=== PATIENT | female | born 1970 | race Caucasian/White ===

== ENCOUNTER 2023-12-22 10:20 | Outpatient (OUT) | payer OTHER, SELFPAY ==
[2023-12-22 12:05] LABS: Basophils Absolute Auto 0.1 10^3/uL (0.0-0.1); Basophils Percent Auto 0.9 % (0.2-2.0); Eosinophils Absolute Auto 0.2 10^3/uL (0.0-0.7); Eosinophils Percent Auto 2.9 % (0.9-7.0); Hematocrit 41.5 % (36.0-48.0); Hemoglobin 13.1 g/dL (12.0-16.0); Immature Granulocytes Abs Auto 0.03 10^3/uL (0.00-0.03); Immature Granulocytes Pct Auto 0.5 % (0.0-0.5); Lymphocytes Percent Auto 35.1 % (20.5-60.0); Mean Corpuscular HGB Conc 31.6 g/dL (29.9-35.2); Mean Corpuscular Volume 91.8 fL (81.0-99.0); Mean Platelet Volume 11.4 fL (9.5-13.5); Monocytes Absolute Auto 0.3 10^3/uL (0.3-0.8); Monocytes Percent Auto 4.8 % (1.7-12.0); Neutrophils Absolute Auto 3.2 10^3/uL (1.4-6.5); Neutrophils Percent Auto 55.8 % (43.0-75.0); Platelet Count 298 10^3/uL (150-450); Red Blood Count 4.52 10^6/uL (4.20-5.40); Red Cell Distribution Width 14.9 % (11.0-15.0); White Blood Count 5.8 10^3/uL (4.0-11.0)
[2023-12-22 12:56] LABS: Estimated Average Glucose 346 mg/dL; Glycohemoglobin A1C 13.7 % (4.5-6.2)
[2023-12-22 13:31] LABS: Alanine Aminotransferase 27 U/L (14-59); Albumin Level 3.9 g/dL (3.4-5.0); Alkaline Phosphatase 104 U/L (46-116); Amylase 48 U/L (25-115); Anion Gap 18.2; Aspartate Amino Transferase 31 U/L (15-37); BUN Creatinine Ratio 12.2; Bilirubin Total 0.6 mg/dL (0.2-1.0); Calcium 9.4 mg/dL (8.5-10.1); Carbon Dioxide 23.5 mmol/L (21.0-32.0); Chloride 98 mmol/L (98-107); Chol HDL Ratio 7.4; Cholesterol 409 mg/dL (<=200); Estimated GFR (African America 28 (>=60); Estimated GFR (Non-African Ame 23 (>=60); Free T3 1.09 pg/mL (2.18-3.98); Globulin 4.1 g/dL; Glucose 235 mg/dL (74-106); HDL Cholesterol 55 mg/dL (40-60); Potassium 4.7 mmol/L (3.5-5.1); Sodium 135 mmol/L (136-145); Triglycerides 839 mg/dL (<=150)
[2023-12-22 13:51] LABS: LDL Cholesterol Direct 179 mg/dL
[2023-12-23 08:13] LABS: CA 19-9 15 U/mL (0-35)
[2023-12-24 12:07] LABS: Insulin 78.6 uIU/mL (2.6-24.9)
== END 2023-12-22 10:21 | disposition home or self-care (01) ==
LOC: LAB 10:23
PROVIDERS: PCP Family Medicine; Visit Provider Family Medicine
DX: R10.0 Acute abdomen (principal); E03.9 Hypothyroidism, unspecified; F32.9 Major depressive disorder, single episode, unspecified; E78.00 Pure hypercholesterolemia, unspecified; R73.09 Other abnormal glucose; Z12.12 Encounter for screening for malignant neoplasm of rectum; D64.9 Anemia, unspecified; E55.9 Vitamin D deficiency, unspecified; I11.0 Hypertensive heart disease with heart failure
CPT/HCPCS: 36415; 80053; 80061; 82150; 82306; 83036; 83525; 83540; 83690; 83721; 83880; 84436; 84443; 84481; 85025; 86301

== ENCOUNTER 2023-12-28 08:11 | Outpatient (OUT) | payer OTHER, SELFPAY ==
--- OUTSIDE RECORDS SUMMARY | 2023-12-28 08:16 | XMS_ITS | CCD ---
Author Name Unknown Address [address] [place] [address] Organization [facility] Care Team Providers Care Jig Operator Name Role Phone GARRY RAMOS Referring Unavailable GARRY RAMOS Primary Care Unavailable SHOLA VILLAFUERTE Attending Unavailable SHOLA VILLAFUERTE Admitting Unavailable Garry Ramos MD Primary Care Provider [phone] CHRISTI CHANCE Referring Unavailable GARRY RAMOS Primary Care Unavailable GARRY RAMOS Primary Care Unavailable ROBERT GARCIA Consulting Unavailable PALOMA ARCEO Admitting Unavailable PALOMA ARCEO Attending Unavailable CHINO DEMPSEY Consulting Unavailable SOLITARIO, LIVIA Admitting Unavailable SOLITARIO, LIVIA Attending Unavailable GARRY RAMOS Primary Care Unavailable URBAN NORIEGA Consulting Unavailable SHAHID GALINDO Consulting Unavailable Bakhous, Aziz Unavailable NUBIA LOZANO Attending Unavailable EKWENNA, OBI Attending Unavailable NUBIA LOZANO Referring Unavailable NUBIA LOZANO Referring Unavailable EKWENNA, OBI Referring Unavailable LUTHER TESFAYE Attending Unavailable NUBIA LOZANO Attending Unavailable EKWENNA, OBI Attending Unavailable EKWENNA, OBI Admitting Unavailable EKWENNA, OBI Attending Unavailable RICHARD Mullins, DR CASTAÑEDA Attending Unavailable HOY ., DR CASTAÑEDA Admitting Unavailable HOY ., DR CASTAÑEDA Primary Care Unavailable NAGIY ., DR CASTAÑEDA Admitting Unavailable HOY ., DR CASTAÑEDA Primary Care Unavailable HOThai ., DR CASTAÑEDA Attending Unavailable HOY ., DR CASTAÑEDA Attending Unavailable HOY ., DR CASTAÑEDA Admitting Unavailable HOThai ., DR CASTAÑEDA Primary Care Unavailable RICHARD Mullins, DR CASTAÑEDA Consulting Unavailable BAKHOUS, AZIZ Admitting Unavailable BAKHOUS, AZIZ Consulting Unavailable HOY ., DR CASTAÑEDA Primary Care Unavailable BAKHOUS, AZIZ Attending Unavailable HOY ., DR CASTAÑEDA Attending Unavailable HOY ., DR CASTAÑEDA Admitting Unavailable HOY ., DR CASTAÑEDA Primary Care Unavailable HOY ., DR CASTAÑEDA Consulting Unavailable HOY ., DR CASTAÑEDA Primary Care Unavailable HOY ., DR CASTAÑEDA Consulting Unavailable HOY ., DR CASTAÑEDA Attending Unavailable HOY ., DR CASTAÑEDA Admitting Unavailable HOY ., DR CASTAÑEDA Attending Unavailable HOY ., DR CASTAÑEDA Admitting Unavailable HOY ., DR CASTAÑEDA Consulting Unavailable HOY ., DR CASTAÑEDA Primary Care Unavailable BAKHOUS, AZIZ Admitting Unavailable BAKHOUS, AZIZ Attending Unavailable HOY ., DR CASTAÑEDA Primary Care Unavailable HOY ., DR CASTAÑEDA Attending Unavailable HOY ., DR CASTAÑEDA Admitting Unavailable HOY ., DR CASTAÑEDA Primary Care Unavailable HOY ., DR CASTAÑEDA Consulting Unavailable BAKHOUS, AZIZ Admitting Unavailable BAKHOUS, AZIZ Consulting Unavailable BAKHOUS, AZIZ Attending Unavailable HOY ., DR CASTAÑEDA Primary Care Unavailable HOY ., DR CASTAÑEDA Attending Unavailable HOY ., DR CASTAÑEDA Admitting Unavailable HOY ., DR CASTAÑEDA Primary Care Unavailable DAWSON, DR AIME Lewis Consulting Unavailanna ALCANTAR, DR MARAH Estrada Consulting Unavailable Unavailable Unavailable Unavailable Allergies Allergy Classification Reported Allergen(s) Allergy Type Date of Onset Reaction(s) Facility Opioid Agonists (1 source) Morphine; Translations: [MORPHINE] Drug Allergy 9 [facility] Penicillins (antibiotic) (1 source) Penicillin; Translations: [PENICILLIN] Drug Allergy 9 [facility] (3 sources) HYDROmorphone; Translations: [HYDROMORPHONE] Drug Allergy 0 [facility] (4 sources) Morphine; Translations: [MORPHINE] Drug Allergy 2 [facility] Work Phone: (5 sources) Penicillins; Translations: [PENICILLINS] Propensity to adverse reactions to drug 9 [facility] (2 sources) Ciprofloxacin Drug Allergy 6 [facility] [employer] (1 source) penicillAMINE Drug Allergy [facility] [place] [employer] Other (2 sources) Ciprofloxacin Drug Allergy 6 [facility] (1 source) HYDROmorphone Drug Allergy [facility] (2 sources) Morphine Drug Allergy 9 [facility] Medications Current Medications Medication Drug Class(es) Dates Sig (Normalized) Sig (Original) Acetaminophen (2 sources) Start: 07-25-2022 acetaminophen (TYLENOL) tablet 650 mg Start: 07-18-2022 acetaminophen (TYLENOL) tablet 650 mg acetaminophen 325 mg / oxyCODONE hydrochloride 5 mg oral tablet (3 sources) Opioid Agonist Start: 07-26-2022 End: 07-29-2022 take 1 tablet by mouth every eight hours as needed for pain oxyCODONE-acetaminophen (PERCOCET) 5-325 MG per tablet Indications: Nephrostomy complication (HCC) Take 1 tablet by mouth every 8 hours as needed for Pain for up to 3 days. 9 tablet 0 07/26/2022 07/29/2022 Active Start: 07-26-2022 oxyCODONE-acet aminophen (PERCOCET) 5-325 MG per tablet 1 tablet Start: 07-18-2022 End: 07-20-2022 oxyCODONE-acetaminophen (PER COCET) 5-325 MG per tablet 2 tablet 1000 ml glucose 100 mg/ml injection (6 sources) Start: 07-26-2022 take 1 mL intravenously every hour IntraVENous, at 100 mL/hr, CONTINUOUS PRN, if blood glucose remains LESS THAN 70 mg/dL after 2 dextrose 10% intravenous boluses or administration of glucagon, Starting on Mon07/26/22 at 1229 If blood glucose fails to stabilize after 2 dextrose 10% intravenous boluses or glucagon administration, start dextrose 10% infusion at 100 mL/hour and repeat blood glucose at 30 and 60 minutes. If blood glucose is GREATER THAN 70 mg/dL after 60 minutes, discontinue dextrose 10% infusion. Start: 07-26-2022 dextrose bolus 10% 125 mL Start: 07-26-2022 16 g (4 tablet ), Oral, PRN, Starting on Mon07/26/22 at 1229, Until Discontinued, Low blood sugar If blood glucose is LESS THAN 70 mg/dL and patient is alert and tolerating oral. Give 4 tablets (16g) Repeat blood glucose in 15 minutes. If blood glucose is LESS THAN 70 mg/dL, repeat treatment and recheck blood glucose in 15 minutes x 2. If blood glucose remains LESS THAN 70 mg/dL, notify provider. Start: 07-18-2022 take 1 mL intravenou sly every hour IntraVENous, at 100 mL/hr, CONTINUOUS PRN, if blood glucose remains LESS THAN 70 mg/dL after 2 dextrose 10% intravenous boluses or administration of glucagon, Starting on Mon07/18/22 at 1814 If blood glucose fails to stabilize after 2 dextrose 10% intravenous boluses or glucagon administration, start dextrose 10% infusion at 100 mL/hour and repeat blood glucose at 30 and 60 minutes. If blood glucose is GREATER THAN 70 mg/dL after 60 minutes, discontinue dextrose 10% infusion. Start: 07-18-2022 dextrose bolus 10% 125 mL Start: 07-18-2022 16 g (4 tablet ), Oral, PRN, Starting on Mon07/18/22 at 1814, Until Discontinued, Low blood sugar If blood glucose is LESS THAN 70 mg/dL and patient is alert and tolerating oral. Give 4 tablets (16g) Repeat blood glucose in 15 minutes. If blood glucose is LESS THAN 70 mg/dL, repeat treatment and recheck blood glucose in 15 minutes x 2. If blood glucose remains LESS THAN 70 mg/dL, notify provider. hydroCHLOROthiazide 25 mg oral tablet (2 sources) Thiazide Diuretic End: 07-22-2022 take 1 tablet by mouth every twenty-four hours hydroCHLOROthiazide 25 MG 1 tablet in the morning Orally Once a day Active ibuprofen 800 mg oral tablet (1 source) Nonsteroidal Anti-inflammato ry Drug Start: 07-26-2022 End: 08-05-2022 take 1 tablet by mouth every eight hours as needed for pain ibuprofen (ADVIL;MOTRIN) 800 MG tablet Take 1 tablet by mouth every 8 hours as needed for Pain 30 tablet 0 07/26/2022 08/05/2022 Active insulin glargine 100 unt/ml injectable solution (4 sources) Insulin Analog Start: 07-26-2022 insulin glargine (LANTUS) injection vial 73 Units Start: 07-20-2022 insulin glargi ne (LANTUS) injection vial 50 Units Start: 07-20-2022 End: 07-20-2022 insulin glargine (LANTUS) in jection vial 35 Units Start: 07-19-2022 End: 07-20-2022 insulin glargine (LANTUS) in jection vial 25 Units insulin isophane, human 70 u nt/ml / insulin, regular, human 30 unt/ml injectable suspension (3 sources) Insulin HumuLIN 70/30 (7 0-30) 100 UNIT/ML as directed Subcutaneous 80 units every morning and 50 units at night Active insulin 70-30 (H UMULIN;NOVOLIN) (70-30) 100 UNIT per ML injection vial Inject into the skin 2 times daily 80 units AM 50 Units PM 0 Active insulin lispro 100 unt/ml injectable solution (6 sources) Insulin Analog Start: 07-26-2022 insulin lispro (HUMALOG) injection vial 13 Units Start: 07-20-2022 End: 07-20-2022 insulin lispro (HUMALOG) inj ection vial 10 Units Start: 07-20-2022 insulin lispro (HUMALOG) injection vial 5 Units Start: 07-20-2022 insulin lispro (HUMALOG) injection vial 0-4 Units Start: 07-18-2022 End: 07-20-2022 0-8 Units, SubCUTAneous, 3 T IMES DAILY WITH MEALS, First dose on 07/18/22 at 1815, Until Discontinued Medium Dose Corrective Algorithm Glucose: Dose: 70-199 No Insulin 200-249 2 Units 250-299 4 Units 300-349 6 Units Over 349 8 Units and notify physician 1 ml ketorolac tromethamine 30 mg/ml cartridge (2 sources) Nonsteroidal Anti-inflammatory Drug, Cyclooxygenase Inhibitor Start: 07-25-2022 End: 07-27-2022 ketorolac (TORADOL) injection 30 mg ondansetron (ZOFRAN-ODT) disintegrating tablet 4 mg (1 source) Start: 07-18-2022 ondansetron (ZOFRAN-ODT) disintegrating tablet 4 mg oxyCODONE hydrochloride 5 mg oral tablet (1 source) Opioid Agonist Start: 07-20-2022 oxyCODONE (ROXICODONE) immediate release tablet 5 mg Potassium Chloride (1 source) Start: 07-25-2022 potassium chloride (KLOR-CON M) extended release tablet 40 mEq 1000 ml sodium chloride 9 mg/ml injection (10 sources) Start: 07-25-2022 take 25 mL intravenously every hour as needed 25 mL, IntraVENous, at 100 mL/hr, PRN, If patient receiving piggyback infusions without ordered maintenance IV fluids or with frequent/long duration piggyback infusions, Starting on Mon07/25/22 at 2002 Administer at the same rate as the piggyback being infused. Start: 07-25-2022 take 1 dose intraven ously twice daily 5-40 mL, IntraVENous, EVERY 12 HOURS SCHEDULED (2 times per day), First dose on Mon07/25/22 at 2100, Until Discontinued For Line Patency: Peripheral IV = 5 mL; Midline or Central Line = 10 mL/lumen. If following IV push medication, administer flush at same rate as the IV push. Flush volume is determined by type of infusion therapy being given. For non-viscous solutions use: Peripheral IV = 5 mL Midline or Central Line = 10 mL/lumen For viscous solutions (i.e. blood components, parenteral nutrition, contrast media, or after obtaining blood sample) use: Peripheral IV = 10 mL Midline or Central Line = 20 mL/lumen Start: 07-25-2022 take 5-40 mL intrave nously once as needed 5-40 mL, IntraVENous, PRN, Starting on Mon07/25/22 at 2002, Until Discontinued, Line Care, After every IV line use For Line Patency: Peripheral IV = 5 mL; Midline or Central Line = 10 mL/lumen. If following IV push medication, administer flush at same rate as the IV push. Flush volume is determined by type of infusion therapy being given. For non-viscous solutions use: Peripheral IV = 5 mL Midline or Central Line = 10 mL/lumen For viscous solutions (i.e. blood components, parenteral nutrition, contrast media, or after obtaining blood sample) use: Peripheral IV = 10 mL Midline or Central Line = 20 mL/lumen Start: 07-21-2022 sodium chlorid e flush 0.9 % injection 5-40 mL Start: 07-20-2022 End: 07-20-2022 0.9 % sodium chloride bolus Start: 07-18-2022 End: 07-20-2022 0.9 % sodium chloride infusi on Start: 07-18-2022 End: 07-21-2022 IntraVENous, at 5-250 mL/hr, PRN, if patient receiving piggyback infusions and maintenance fluids are not ordered OR KVO fluids to protect IV site / prevent frequent line interruptions/ long duration, Starting on Mon07/18/22 at 1814 For piggyback infusion, administer at same rate as piggyback for a total of 25 mL. Enter 25 mL into dose field and piggyback rate into rate field of order. If piggyback is infusing at a rate less than 100 mL/hr, enter 25 mL into dose field and 100 mL/hr into rate field of order. For KVO fluids, enter rate of 20 mL/hr or less into rate field of order. Start: 07-18-2022 End: 07-21-2022 take 5-40 mL intravenously once as needed 5-40 mL, IntraVENous, PRN, Starting on Mon07/18/22 at 1814, Until Mon07/21/22 at 1559, Line Care, After every IV line use For Line Patency: Peripheral IV = 5 mL; Midline or Central Line = 10 mL/lumen. If following IV push medication, administer flush at same rate as the IV push. Flush volume is determined by type of infusion therapy being given. For non-viscous solutions use: Peripheral IV = 5 mL Midline or Central Line = 10 mL/lumen For viscous solutions (i.e. blood components, parenteral nutrition, contrast media, or after obtaining blood sample) use: Peripheral IV = 10 mL Midline or Central Line = 20 mL/lumen tigecycline (TYGACIL) 50 mg in sodium chloride 0.9 % 100 mL IVPB (1 source) Start: 07-21-2022 tigecycline (T YGACIL) 50 mg in sodium chloride 0.9 % 100 mL IVPB Completed/Discontinued Medications Medication Drug Class(es) Dates Sig (Normalized) Sig (Original) aspirin 81 mg delayed release oral tablet (5 sources) Platelet Aggregation Inhibitor, Nonsteroidal Anti-inflammatory Drug Start: 07-22-2022 End: 08-21-2022 take 81 mg by mouth once daily 81 mg, Oral, DAILY, First dose on Mon07/26/22 at 0900, Until Discontinued Do not crush or break. Aspirin 81 MG 1 daily Active atorvastatin 80 mg oral tablet (5 sources) HMG-CoA Reductase Inhibitor Start: 07-19-2022 take 80 mg by mouth once daily 80 mg, Oral, DAILY, First dose on Mon07/26/22 at 0900, Until Discontinued ciprofloxacin 500 mg oral tablet (5 sources) Quinolone Antimicrobial Start: 07-22-2022 End: 08-05-2022 500 mg, Oral, 2 TIMES DAILY, First dose on Mon07/25/22 at 2300, Until Discontinued Antimicrobial Indications: Urinary Tract Infection UTI duration of therapy: Other Do not take with dairy products or calcium-fortified juices. Tube feeding (TF) interaction, obtain physician order to manage. Recommend holding TF for 1 hr before and 1 hr after dose. Due to decreased absorption do not give by J tube. Start: 07-18-2022 End: 07-20-2022 ciprofloxacin (CIPRO) IVPB 4 00 mg DULoxetine 30 mg delayed release oral capsule (6 sources) Serotonin and Norepinephrine Reuptake Inhibitor Start: 07-26-2022 take 1 capsule by mouth once daily 60 mg, Oral, DAILY, First dose on Mon07/26/22 at 0900, Until Discontinued Do not crush or break. May add contents of capsule to apple juice or apple sauce, but not chocolate. Start: 07-22-2022 End: 08-21-2022 take 1 capsule by mouth once daily DULoxetine (CYMBALTA) 60 MG extended release capsule Take 1 capsule by mouth daily 30 capsule 1 07/22/2022 08/21/2022 Active Start: 07-20-2022 DULoxetine (CY MBALTA) extended release capsule 60 mg empagliflozin (1 source) Sodium-Glucose Cotransporter 2 Inhibitor JARDIANCE Not- Taking 2 ml fentaNYL 0.05 mg/ml injection (8 sources) Opioid Agonist Start: 07-26-2022 End: 07-26-2022 fentaNYL (SUBLIMAZE) injection Start: 07-19-2022 End: 07-19-2022 fentaNYL (SUBLIMAZE) injecti on Start: 07-18-2022 End: 07-20-2022 fentaNYL (SUBLIMAZE) injecti on 50 mcg furosemide 20 mg oral tablet (5 sources) Loop Diuretic Start: 07-26-2022 take 20 mg by mouth once daily 20 mg, Oral, DAILY, First dose on Mon07/26/22 at 0900, Until Discontinued Start: 07-23-2022 End: 07-22-2022 take 1 tablet by mouth once daily furosemide (LASIX) 20 MG tablet Take 1 tablet by mouth daily 60 tablet 3 07/23/2022 Active Start: 07-23-2022 take 1 tablet by ivana once daily furosemide (LASIX) 20 MG tablet Take 1 tablet by mouth daily 60 tablet 3 07/23/2022 Active Start: 07-23-2022 furosemide (LA SIX) tablet 20 mg gabapentin 600 mg oral tablet (6 sources) Anti-epileptic Agent Start: 07-22-2022 End: 08-21-2022 take 600 mg by mouth three times daily 600 mg, Oral, 3 TIMES DAILY, First dose on Mon07/25/22 at 2300, Until Discontinued Start: 07-18-2022 gabapentin (NE URONTIN) capsule 600 mg Start: 03-21-2020 take 2 tablets by mo [facility] every twelve hours Gabapentin 600 MG 2 capsules Orally twice a day for 5 days March, Active glucagon (rdna) 1 mg injection (2 sources) Antihypoglycemic Agent Start: 07-26-2022 inject 1 mg by subcutaneous injection every hour as needed 1 mg, SubCUTAneous, PRN, Starting on Mon07/26/22 at 1229, Until Discontinued, Low blood sugar, Blood glucose LESS THAN 70 mg/dL and patient NOT ALERT or NPO and does not have IV access. After administration, attempt intravenous access and start dextrose 10% at 100 mL/hr. Repeat blood glucose in 15 minutes x 2 and notify provider. Start: 07-18-2022 inject 1 mg by subcu taneous injection every hour as needed 1 mg, SubCUTAneous, PRN, Starting on Mon07/18/22 at 1814, Until Discontinued, Low blood sugar, Blood glucose LESS THAN 70 mg/dL and patient NOT ALERT or NPO and does not have IV access. After administration, attempt intravenous access and start dextrose 10% at 100 mL/hr. Repeat blood glucose in 15 minutes x 2 and notify provider. 1 ml heparin sodium, porcine 5000 unt/ml prefilled syringe (1 source) Unfractionated Heparin, Anti-coagulant Start: 07-18-2022 inject 1 dose by subcutaneous injection three times daily 5,000 Units, SubCUTAneous, EVERY 8 HOURS SCHEDULED (3 times per day), First dose on Mon07/18/22 at 2200, Until Discontinued Hold until okay with urology to give heparin hydrALAZINE hydrochloride 50 mg oral tablet (5 sources) Arteriolar Vasodilator Start: 07-25-2022 take 1 dose by mouth three times daily 25 mg, Oral, EVERY 8 HOURS SCHEDULED (3 times per day), First dose on Mon07/25/22 at 2300, Until Discontinued Start: 07-22-2022 End: 08-21-2022 take 1 tablet by mouth every eight hours hydrALAZINE (APRESOLINE) 25 MG tablet Take 1 tablet by mouth every 8 hours 90 tablet 2 07/22/2022 08/21/2022 Active iopamidol (ISOVUE-370) 76 % injection 50 mL (2 sources) Start: 07-26-2022 End: 07-26-2022 iopamidol (ISOVUE-370) 76 % injection 50 mL Start: 07-19-2022 End: 07-19-2022 iopamidol (ISOVUE-370) 76 % injection 50 mL labetalol hydrochloride 5 mg/ml injectable solution (1 source) beta-Adrenergic Brandon Start: 07-20-2022 End: 07-20-2022 labetalol (NORMODYNE;TRANDATE) injection 10 mg levothyroxine sodium 0.1 mg oral tablet (6 sources) l-Thyroxine Start: 07-26-2022 take 200 ug by mouth once daily 200 mcg, Oral, DAILY, First dose on Mon07/26/22 at 0700, Until Discontinued Tube feeding (TF) interaction, obtain physician order to manage, recommend holding TF for 30 minutes before and after dose. Start: 07-22-2022 End: 08-21-2022 take 1 tablet by mouth once daily levothyroxine (SYNTHROID) 200 MCG tablet Take 1 tablet by mouth Daily 30 tablet 0 07/22/2022 08/21/2022 Active Start: 07-19-2022 take 200 ug by mouth once lauren y 200 mcg, Oral, DAILY, First dose on Mon07/19/22 at 0700, Until Discontinued Tube feeding (TF) interaction, obtain physician order to manage, recommend holding TF for 30 minutes before and after dose. take 1 tablet by ivana th once daily in the morning Synthroid 200 MCG 1 tablet in the morning on an empty stomach Orally Once a day Active losartan potassium 50 mg oral tablet (4 sources) Angiotensin 2 Receptor Brandon Start: 07-26-2022 take 100 mg by mouth once daily 100 mg, Oral, DAILY, First dose on Mon07/26/22 at 0900, Until Discontinued take 1 tablet by ivana th every twenty-four hours Losartan Potassium 100 MG 1 tablet Orally Once a day Active magnesium oxide 400 mg oral tablet (4 sources) Start: 07-25-2022 take 400 mg by mouth twice daily as needed 400 mg, Oral, 2 TIMES DAILY PRN, Starting on Mon07/25/22 at 2253, Until Discontinued, for low Mag take 1 tablet by ivana th every twenty-four hours Magnesium Oxide 400 MG 1 tablet as needed Orally Once a day Active metFORMIN hydrochloride 500 mg oral tablet (4 sources) Biguanide Start: 07-26-2022 take 500 mg by mouth twice daily at mealtime 500 mg, Oral, 2 TIMES DAILY WITH MEALS, First dose on Mon07/26/22 at 1700, Until Discontinued methylPREDNISolone (1 source) Corticosteroid Start: 07-16-2016 Depo-Medrol 40 mg Jul, 60 mg 2 ml midazolam 1 mg/ml injection (1 source) Benzodiazepine Start: 07-19-2022 End: 07-19-2022 midazolam PF (VERSED) injection 2 ml ondansetron 2 mg/ml injection (1 source) Serotonin-3 Receptor Antagonist Start: 07-25-2022 4 mg, IntraVENous, EVERY 4 HOURS PRN, Starting on Mon07/25/22 at 2002, Until Discontinued, Nausea, Vomiting polyethylene glycol 3350 21226 mg powder for oral solution (2 sources) Osmotic Laxative Start: 07-25-2022 17 g, Oral, DAILY PRN, Starting on Mon07/25/22 at 2003, Until Discontinued, Constipation First line therapy for constipation Start: 07-18-2022 17 g, Oral, DA OSMAN PRN, Starting on Mon07/18/22 at 1814, Until Discontinued, Constipation First line therapy for constipation rosuvastatin (1 source) HMG-CoA Reductase Inhibitor Crestor Not-Taking sodium bicarbonate 75 mEq in sodium chloride 0.45 % 1,000 mL infusion (1 source) Start: 07-20-2022 End: 07-22-2022 sodium bicarbonate 75 mEq in sodium chloride 0.45 % 1,000 mL infusion tobramycin (NEBCIN) 200 mg in dextrose 5 % 100 mL IVPB (1 source) Start: 07-20-2022 End: 07-20-2022 tobramycin (NEBCIN) 200 mg in dextrose 5 % 100 mL IVPB Problems Active Problems Problem Classification Problem Date Documented Date Episodic/Chronic Acute and unspecified renal failure (4 sources) Acute injury of kidney; Translations: [Acute kidney failure, unspecified] Onset: 2 Episodic Allergic reactions (3 sources) Allergy to penicillin; Translations: [Allergy status to penicillin] Onset: 2 Episodic Calculus of urinary tract (19 sources) Kidney stone; Translations: [Calculus of kidney] Onset: 2 Episodic Chronic kidney disease (6 sources) Chronic kidney disease stage 4; Translations: [Chronic kidney disease, stage 4 (severe)] Onset: 3 Chronic Complication of device; implant or graft (2 sources) Displacement of nephrostomy tube; Translations: [Displacement of nephrostomy catheter, initial encounter] Onset: 2 Episodic Complications of surgical procedures or medical care (2 sources) Complication of external stoma of urinary tract; Translations: [Other complication of incontinent external stoma of urinary tract] Onset: 2 Episodic Congestive heart failure; nonhypertensive (1 source) Unspecified diastolic (congestive) heart failure; Translations: [UNSPECIFIED DIASTOLIC HEART FAILURE] Onset: 2 Chronic Coronary atherosclerosis and other heart disease (1 source) Atherosclerotic heart disease of [place] coronary artery without angina pectoris; Translations: [ASHD UPPER [place] CA W/O ANGINA PECTORIS] Onset: 2 Chronic Deficiency and other anemia (2 sources) Anemia, unspecified; Translations: [ANEMIA UNSPECIFIED] Onset: 3 Episodic Diabetes mellitus with complications (3 sources) Type 2 diabetes mellitus in obese; Translations: [Type 2 diabetes mellitus with other specified complication] Onset: 3 Chronic Diabetes mellitus without complication (4 sources) Insulin treated type 2 diabetes mellitus; Translations: [Type 2 diabetes mellitus without complications] Onset: 2 Chronic Diseases of white blood cells (3 sources) Leukocytosis; Translations: [Elevated white blood cell count, unspecified] Onset: 2 Chronic Disorders of lipid metabolism (1 source) Pure hypercholesterolemia, unspecified; Translations: [PURE HYPERCHOLESTEROLEMIA UNSPEC] Onset: 2 Chronic Essential hypertension (5 sources) Hypertensive disorder; Translations: [Essential (primary) hypertension] Onset: 2 Chronic Hypertension with complications and secondary hypertension (3 sources) Hypertensive renal disease; Translations: [Hypertensive chronic kidney disease with stage 1 through stage 4 chronic kidney disease, or unspecified chronic kidney disease] Onset: 2 Chronic Mood disorders (4 sources) Depressive disorder; Translations: [Depression] Onset: 2 Chronic Nephritis; nephrosis; renal sclerosis (7 sources) Atrophy of left kidney; Translations: [Atrophy of kidney (terminal)] Onset: 2 Chronic Nutritional deficiencies (1 source) Vitamin D deficiency, unspecified; Translations: [VITAMIN D DEFICIENCY UNSPECIFIED] Onset: 2 Chronic Other aftercare (3 sources) Patient encounter status; Translations: [shelter (current) use of non-steroidal anti-inflammatories (NSAID)] Onset: 2 Episodic Other circulatory disease (3 sources) H/O: heart disorder; Translations: [Personal history of other diseases of the circulatory system] Onset: 2 Episodic Other nervous system disorders (1 source) Neuropathy; Translations: [Polyneuropathy, unspecified] Chronic Other nutritional; endocrine; and metabolic disorders (1 source) Obesity; Translations: [Obesity, unspecified] Chronic Other nutritional; endocrine; and metabolic disorders (2 sources) Obesity, unspecified; Translations: [OBESITY UNSPECIFIED] Onset: 3 Chronic Other nutritional; endocrine; and metabolic disorders (1 source) Morbid (severe) obesity due to excess calories; Translations: [MORBID SEVERE OBES D/T EXCESS JENARO] Onset: 2 Chronic Other nutritional; endocrine; and metabolic disorders (1 source) Body mass index (BMI) 40.0-44.9, adult; Translations: [BODY MASS INDEX BMI 40.0-44.9 ADULT] Onset: 2 Chronic Other upper respiratory infections (1 source) Sinusitis; Translations: [Chronic infection of sinus NOS] Chronic Residual codes; unclassified (1 source) Absent kidney; Translations: [Acquired absence of kidney] Episodic Residual codes; unclassified (4 sources) Acquired absence of kidney; Translations: [Acquired absence of kidney] Onset: 3 Episodic Septicemia (except in labor) (3 sources) Acute kidney injury due to sepsis; Translations: [Sepsis, unspecified organism] Onset: 2 Episodic Thyroid disorders (4 sources) Hypothyroidism; Translations: [Hypothyroidism, unspecified] Onset: 2 Chronic Unclassified (2 sources) Nephrolithiasis; Translations: [Nephrolithiasis] Onset: 2 Unclassified (1 source) CONTACT W/AND (SUSP) EXPOS COVID-19; Translations: [CONTACT W/AND (SUSP) EXPOS COVID-19] Onset: 2 Past or Other Problems Problem Classification Problem Date Documented Date Episodic/Chronic Abdominal pain (8 sources) Left flank pain; Translations: [Unspecified abdominal pain] Onset: 07-18-2022 Episodic Diabetes mellitus without complication (1 source) Other abnormal glucose; Translations: [OTHER ABNORMAL GLUCOSE] Onset: 11-30-2022 Episodic Fluid and electrolyte disorders (10 sources) Metabolic acidosis; Translations: [Acidosis] Onset: 07-20-2022 Episodic Malaise and fatigue (5 sources) Other fatigue; Translations: [OTHER FATIGUE] Onset: 04-15-2022 Episodic Other aftercare (1 source) 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; Translations: [AUTOMATION ARCHITECT CURRENT USE OF ASPIRIN] Onset: 07-20-2022 Episodic Other aftercare (1 source) Other intermediate manager (current) drug therapy; Translations: [OTH LONGTERM CURRENT DRUG THERAPY] Onset: 07-20-2022 Episodic Other aftercare (1 source) shelter (current) use of oral hypoglycemic drugs; Translations: [LONGTERM USE ORAL HYPOGLYCEMIC DX] Onset: 07-20-2022 Episodic Other diseases of kidney and ureters (2 sources) Hydronephrosis with ureteral stricture, not elsewhere classified; Translations: [Hydronephrosis with ureteral stricture, not elsewhere classified] Onset: 08-23-2022 Episodic Other screening for suspected conditions (not mental disorders or infectious disease) (1 source) Encounter for screening for malignant neoplasm of rectum; Translations: [ENC SCREEN MALIG NEOPLASM RECTUM] Onset: 04-19-2022 Episodic Urinary tract infections (8 sources) Acute pyelonephritis; Translations: [Acute pyelonephritis] Onset: 07-19-2022 Episodic Results Test Name Value Interpretation Reference Range Facility PTH INTACTon 03-11-2023 PTH, Intact 31 pg/mL Normal 15-65 [facility] Comment on above: Performed By: #### U MICRO, ERUR #### [facility] [address] [address] [address] Delmer Rea FERRITINon 03-10-2023 Ferritin [Mass/Vol] 35.0 ng/mL Normal 8.0-252.0 [facility] Comment on above: Performed By: #### L IPA, DLDL, CON, LIPID, T7, CMP, TSH #### [facility] [address] [address] [address] Delmer Rea HEMOGRAM AND PLATELon 2022 Hematocrit (Bld) [Volume fraction] 35.5 % Critically low 36.0-48.0 [facility] Comment on above: Performed By: #### L IPA, DLDL, CON, LIPID, T7, CMP, TSH #### [facility] [address] [place] [address] Dr. Delmer Rea Hemoglobin (Bld) [Mass/Vol] 11.6 g/dL Critically low 12.0-16.0 [facility] Comment on above: Performed By: #### L IPA, DLDL, CON, LIPID, T7, CMP, TSH #### [facility] [address] [address] [address] Delmer Rea MCH (RBC) [Entitic mass] 27.3 pg Normal 26.7-34.0 [facility] Comment on above: Performed By: #### L IPA, DLDL, CON, LIPID, T7, CMP, TSH #### [facility] [address] [place] [address] Dr. Delmer Rea MCHC (RBC) [Mass/Vol] 32.7 g/dL Normal 29.9-35.2 [facility] Comment on above: Performed By: #### L IPA, DLDL, CON, LIPID, T7, CMP, TSH #### [facility] [address] [place] [address] Dr. Delmer Rea MCV (RBC) [Entitic vol] 83.5 fL Normal 81.0-99.0 [facility] Comment on above: Performed By: #### L IPA, DLDL, CON, LIPID, T7, CMP, TSH #### [facility] [address] [place] [address] Dr. Delmer Rea PLT 273 103/ul Normal 150-450 [facility] Comment on above: Performed By: #### L IPA, DLDL, CON, LIPID, T7, CMP, TSH #### [facility] [address] [place] [address] Dr. Delmer Rea RBC 4.25 106/ul Normal 4.20-5.40 [facility] Comment on above: Performed By: #### L IPA, DLDL, CON, LIPID, T7, CMP, TSH #### [facility] [address] [place] [address] Dr. Delmer Rea WBC 5.5 103/ul Normal 4.0-11.0 [facility] Comment on above: Performed By: #### L IPA, DLDL, CON, LIPID, T7, CMP, TSH #### [facility] [address] [place] [address] Dr. Delmer Rea IRON AND TIBCon 03-10-2023 % SATURATION 13.6 % Normal [facility] Comment on above: Performed By: #### L IPA, DLDL, CON, LIPID, T7, CMP, TSH #### [facility] [address] [address] [address] Delmer Rea Iron [Mass/Vol] 61.0 ug/dL Normal 50.0-170.0 [facility] Comment on above: Performed By: #### L IPA, DLDL, CON, LIPID, T7, CMP, TSH #### [facility] [address] [address] [address] Delmer Rea TIBC DIRECT 447.0 ug/dL Normal 250.0-450.0 [facility] Comment on above: Performed By: #### L IPA, DLDL, CON, LIPID, T7, CMP, TSH #### [facility] [address] [address] [address] Delmer Rea MAGNESIUMon 03-10-2023 Magnesium [Mass/Vol] 1.7 mg/dL Critically low 1.8-2.4 [facility] Comment on above: Performed By: #### L IPA, DLDL, CON, LIPID, T7, CMP, TSH #### [facility] [address] [address] [address] Delmer Rea PHOSPHORUSon 03-10-2023 Phosphate [Mass/Vol] 4.9 mg/dL Critically high 2.6-4.7 [facility] Comment on above: Performed By: #### L IPA, DLDL, CON, LIPID, T7, CMP, TSH #### [facility] [address] [address] [address] Delmer Rea PROF 14(COMP METB)on 023 Albumin [Mass/Vol] 3.4 g/dL Normal 3.4-5.0 [facility] Comment on above: Performed By: #### L IPA, DLDL, CON, LIPID, T7, CMP, TSH #### [facility] [address] [address] [address] Delmer Rea Albumin/Globulin [Mass ratio] 0.8 {ratio} Normal [facility] Comment on above: Performed By: #### L IPA, DLDL, CON, LIPID, T7, CMP, TSH #### [facility] [address] [place] [address] Dr. Delmer Rea ALP [Catalytic activity/Vol] 102 U/L Normal 46-116 [facility] Comment on above: Performed By: #### L IPA, DLDL, CON, LIPID, T7, CMP, TSH #### [facility] [address] [place] [address] Dr. Delmer Rea ALT [Catalytic activity/Vol] 28 U/L Normal 14-59 [facility] Comment on above: Performed By: #### L IPA, DLDL, CON, LIPID, T7, CMP, TSH #### [facility] [address] [place] [address] Dr. Delmer Rea Anion gap [Moles/Vol] 15.1 mmol/L Normal [facility] Comment on above: Performed By: #### L IPA, DLDL, CON, LIPID, T7, CMP, TSH #### [facility] [address] [place] [address] Dr. Delmer Rea AST [Catalytic activity/Vol] 16 U/L Normal 15-37 [facility] Comment on above: Performed By: #### L IPA, DLDL, CON, LIPID, T7, CMP, TSH #### [facility] [address] [place] [address] Dr. Delmer Rea Bilirubin [Mass/Vol] 0.5 mg/dL Normal 0.2-1.0 [facility] Comment on above: Performed By: #### L IPA, DLDL, OCN, LIPID, T7, CMP, TSH #### [facility] [address] [place] [address] Dr. Delmer Rea Calcium [Mass/Vol] 9.5 mg/dL Normal 8.5-10.1 [facility] Comment on above: Performed By: #### L IPA, DLDL, CON, LIPID, T7, CMP, TSH #### [facility] [address] [place] [address] Dr. Delmer Rea Chloride [Moles/Vol] 100 mmol/L Normal 98-107 [facility] Comment on above: Performed By: #### L IPA, DLDL, CON, LIPID, T7, CMP, TSH #### [facility] [address] [address] [address] Delmer Rea CO2 [Moles/Vol] 23.4 mmol/L Normal 21.0-32.0 [facility] Comment on above: Performed By: #### L IPA, DLDL, CON, LIPID, T7, CMP, TSH #### [facility] [address] [address] [address] Delmer Rea Creatinine [Mass/Vol] 1.86 mg/dL Critically high 0.55-1.02 [facility] Comment on above: Performed By: #### L IPA, DLDL, CON, LIPID, T7, CMP, TSH #### [facility] [address] [place] [address] Dr. Delmer Rea EGFR-AF TURKISH 35 mL/min/1.73m2 Critically low >=60 [facility] Comment on above: Performed By: #### L IPA, DLDL, CON, LIPID, T7, CMP, TSH #### [facility] [address] [place] [address] Dr. Delmer Rea EGFR-NON AF TURKISH 29 mL/min/1.73m2 Critically low >=60 [facility] Comment on above: Performed By: #### L IPA, DLDL, CON, LIPID, T7, CMP, TSH #### [facility] [address] [address] [address] Delmer Rea Globulin (S) [Mass/Vol] 4.3 g/dL Normal [facility] Comment on above: Performed By: #### L IPA, DLDL, CON, LIPID, T7, CMP, TSH #### [facility] [address] [address] [address] Delmer Rea Glucose [Mass/Vol] 197 mg/dL Critically high 74-106 [facility] Comment on above: Performed By: #### L IPA, DLDL, CON, LIPID, T7, CMP, TSH #### [facility] [address] [address] [address] Delmer Rea Potassium [Moles/Vol] 4.5 mmol/L Normal 3.5-5.1 [facility] Comment on above: Performed By: #### L IPA, DLDL, CON, LIPID, T7, CMP, TSH #### [facility] [address] [place] [address] Dr. Delmer Rea Protein [Mass/Vol] 7.7 g/dL Normal 6.4-8.2 [facility] Comment on above: Performed By: #### L IPA, DLDL, CON, LIPID, T7, CMP, TSH #### [facility] [address] [place] [address] Dr. Delmer Rea Sodium [Moles/Vol] 134 mmol/L Critically low 136-145 [facility] Comment on above: Performed By: #### L IPA, DLDL, CON, LIPID, T7, CMP, TSH #### [facility] [address] [place] [address] Dr. Delmer Rea Urea nitrogen [Mass/Vol] 40.0 mg/dL Critically high 7.0-18.0 [facility] Comment on above: Performed By: #### L IPA, DLDL, CON, LIPID, T7, CMP, TSH #### [facility] [address] [place] [address] Dr. Delmer Rea Urea nitrogen/Creatinine [Mass ratio] 21.5 mg/mg Normal [facility] Comment on above: Performed By: #### L IPA, DLDL, CON, LIPID, T7, CMP, TSH #### [facility] [address] [place] [address] Dr. Delmer Rea URIC ACID SERUMon 03-10-2023 Urate [Mass/Vol] 7.1 mg/dL Critically high 2.6-6.0 [facility] Comment on above: Performed By: #### L IPA, DLDL, CON, LIPID, T7, CMP, TSH #### [facility] [address] [place] [address] Dr. Delmer Rea VIT B12 AND FOLATEon 023 Cobalamin (Vitamin B12) [Mass/Vol] 369.0 pg/mL Normal 193.0-986.0 [facility] Comment on above: Performed By: #### L IPA, DLDL, CON, LIPID, T7, CMP, TSH #### [facility] [address] [address] [address] Delmer Rea FOLATE 20.30 ng/mL Normal 8.60-58.90 [facility] Comment on above: Performed By: #### L IPA, DLDL, CON, LIPID, T7, CMP, TSH #### [facility] [address] [place] [address] Dr. Delmer Rea VITAMIN D 25 OHon 03-10-2023 VIT D 25-OH 13.0 ng/mL Normal [facility] Comment on above: Performed By: #### L IPA, DLDL, CON, LIPID, T7, CMP, TSH #### [facility] [address] [place] [address] Dr. Delmer Rea VIT D RANGES SEE BELOW Normal [facility] Comment on above: Result Comment: <20 ng/mL Vit D deficient 20 - <30 ng/mL Vit D insufficient 30 - 100 ng/mL Vit D sufficient >100 ng/mL Potential Toxicity Performed By: #### L IPA, DLDL, CON, LIPID, T7, CMP, TSH #### [facility] [address] [place] [address] Dr. Delmer Rea 36on 02-02-2023 36 02/02/23 mailed lette r asking patient to contact office to reschedule appointment due to provider (Nubia) out of office-[facility] PROF 14(COMP METB)on 023 Albumin [Mass/Vol] 3.4 g/dL Normal 3.4-5.0 [facility] Comment on above: Performed By: #### L IPA, DLDL, CON, LIPID, T7, CMP, TSH #### [facility] [address] [place] [address] Dr. Delmer Rea Albumin/Globulin [Mass ratio] 0.9 {ratio} Normal [facility] Comment on above: Performed By: #### L IPA, DLDL, CON, LIPID, T7, CMP, TSH #### [facility] [address] [place] [address] Dr. Delmer Rea ALP [Catalytic activity/Vol] 95 U/L Normal 46-116 [facility] Comment on above: Performed By: #### L IPA, DLDL, CON, LIPID, T7, CMP, TSH #### [facility] [address] [address] [address] Delmer Rea ALT [Catalytic activity/Vol] 23 U/L Normal 14-59 [facility] Comment on above: Performed By: #### L IPA, DLDL, CON, LIPID, T7, CMP, TSH #### [facility] [address] [address] [address] Delmer Rea Anion gap [Moles/Vol] 15.2 mmol/L Normal [facility] Comment on above: Performed By: #### L IPA, DLDL, CON, LIPID, T7, CMP, TSH #### [facility] [address] [place] [address] Dr. Delmer Rea AST [Catalytic activity/Vol] 8 U/L Critically low 15-37 [facility] Comment on above: Performed By: #### L IPA, DLDL, CON, LIPID, T7, CMP, TSH #### [facility] [address] [address] [address] Delmer Rea Bilirubin [Mass/Vol] 0.3 mg/dL Normal 0.2-1.0 [facility] Comment on above: Performed By: #### L IPA, DLDL, CON, LIPID, T7, CMP, TSH #### [facility] [address] [place] [address] Dr. Delmer Rea Calcium [Mass/Vol] 9.2 mg/dL Normal 8.5-10.1 [facility] Comment on above: Performed By: #### L IPA, DLDL, CON, LIPID, T7, CMP, TSH #### [facility] [address] [address] [address] Delmer Rea Chloride [Moles/Vol] 102 mmol/L Normal 98-107 [facility] Comment on above: Performed By: #### L IPA, DLDL, CON, LIPID, T7, CMP, TSH #### [facility] [address] [address] [address] Delmer Rea CO2 [Moles/Vol] 22.6 mmol/L Normal 21.0-32.0 [facility] Comment on above: Performed By: #### L IPA, DLDL, CON, LIPID, T7, CMP, TSH #### [facility] [address] [address] [address] Delmer Rea Creatinine [Mass/Vol] 1.89 mg/dL Critically high 0.55-1.02 [facility] Comment on above: Performed By: #### L IPA, DLDL, CON, LIPID, T7, CMP, TSH #### [facility] [address] [address] [address] Delmer Rae EGFR-AF TURKISH 34 mL/min/1.73m2 Critically low >=60 [facility] Comment on above: Performed By: #### L IPA, DLDL, CON, LIPID, T7, CMP, TSH #### [facility] [address] [place] [address] Dr. Delmer Rea EGFR-NON AF TURKISH 28 mL/min/1.73m2 Critically low >=60 [facility] Comment on above: Performed By: #### L IPA, DLDL, CON, LIPID, T7, CMP, TSH #### [facility] [address] [place] [address] Dr. Delmer Rea Globulin (S) [Mass/Vol] 3.9 g/dL Normal [facility] Comment on above: Performed By: #### L IPA, DLDL, CON, LIPID, T7, CMP, TSH #### [facility] [address] [place] [address] Dr. Delmer Rea Glucose [Mass/Vol] 257 mg/dL Critically high 74-106 [facility] Comment on above: Performed By: #### L IPA, DLDL, CON, LIPID, T7, CMP, TSH #### [facility] [address] [place] [address] Dr. Delmer Rea Potassium [Moles/Vol] 4.8 mmol/L Normal 3.5-5.1 [facility] Comment on above: Performed By: #### L IPA, DLDL, CON, LIPID, T7, CMP, TSH #### [facility] [address] [address] [address] Delmer Rea Protein [Mass/Vol] 7.3 g/dL Normal 6.4-8.2 [facility] Comment on above: Performed By: #### L IPA, DLDL, CON, LIPID, T7, CMP, TSH #### [facility] [address] [address] [address] Delmer Rea Sodium [Moles/Vol] 135 mmol/L Critically low 136-145 [facility] Comment on above: Performed By: #### L IPA, DLDL, CON, LIPID, T7, CMP, TSH #### [facility] [address] [address] [address] Delmer Rea Urea nitrogen [Mass/Vol] 39.0 mg/dL Critically high 7.0-18.0 [facility] Comment on above: Performed By: #### L IPA, DLDL, CON, LIPID, T7, CMP, TSH #### [facility] [address] [address] [address] Delmer Rea Urea nitrogen/Creatinine [Mass ratio] 20.6 mg/mg Normal [facility] Comment on above: Performed By: #### L IPA, DLDL, CON, LIPID, T7, CMP, TSH #### [facility] [address] [place] [address] Dr. Delmer Rea PROF 14(COMP METB)on 023 Albumin [Mass/Vol] 3.5 g/dL Normal 3.4-5.0 [facility] Comment on above: Performed By: #### U MICRO, ERUR #### [facility] [address] [address] [address] Delmer Rea Albumin/Globulin [Mass ratio] 0.8 {ratio} Normal [facility] Comment on above: Performed By: #### U MICRO, ERUR #### [facility] [address] [place] [address] Dr. Delmer Rea ALP [Catalytic activity/Vol] 113 U/L Normal 46-116 [facility] Comment on above: Performed By: #### U MICRO, ERUR #### [facility] [address] [address] [address] Delmer Rea ALT [Catalytic activity/Vol] 23 U/L Normal 14-59 [facility] Comment on above: Performed By: #### U MICRO, ERUR #### [facility] [address] [address] [address] Delmer Rea Anion gap [Moles/Vol] 15.5 mmol/L Normal [facility] Comment on above: Performed By: #### U MICRO, ERUR #### [facility] [address] [address] [address] Delmer Rea AST [Catalytic activity/Vol] 15 U/L Normal 15-37 [facility] Comment on above: Performed By: #### U MICRO, ERUR #### [facility] [address] [address] [address] Delmer Rea Bilirubin [Mass/Vol] 0.3 mg/dL Normal 0.2-1.0 [facility] Comment on above: Performed By: #### U MICRO, ERUR #### [facility] [address] [address] [address] Delmer Rea Calcium [Mass/Vol] 9.5 mg/dL Normal 8.5-10.1 [facility] Comment on above: Performed By: #### U MICRO, ERUR #### [facility] [address] [address] [address] Delmer Rea Chloride [Moles/Vol] 104 mmol/L Normal 98-107 [facility] Comment on above: Performed By: #### U MICRO, ERUR #### [facility] [address] [address] [address] Delmer Rea CO2 [Moles/Vol] 25.1 mmol/L Normal 21.0-32.0 [facility] Comment on above: Performed By: #### U MICRO, ERUR #### [facility] [address] [address] [address] Delmer Rea Creatinine [Mass/Vol] 1.29 mg/dL Critically high 0.55-1.02 [facility] Comment on above: Performed By: #### U MICRO, ERUR #### [facility] [address] [address] [address] Delmer Rea EGFR-AF TURKISH 53 mL/min/1.73m2 Critically low >=60 [facility] Comment on above: Performed By: #### U MICRO, ERUR #### [facility] [address] [address] [address] Delmer Rea EGFR-NON AF TURKISH 44 mL/min/1.73m2 Critically low >=60 [facility] Comment on above: Performed By: #### U MICRO, ERUR #### [facility] [address] [place] [address] Dr. Delmer Rea Globulin (S) [Mass/Vol] 4.2 g/dL Normal [facility] Comment on above: Performed By: #### U MICRO, ERUR #### [facility] [address] [address] [address] Delmer Rea Glucose [Mass/Vol] 135 mg/dL Critically high 74-106 [facility] Comment on above: Performed By: #### U MICRO, ERUR #### [facility] [address] [place] [address] Dr. Delmer Rea Potassium [Moles/Vol] 4.6 mmol/L Normal 3.5-5.1 [facility] Comment on above: Performed By: #### U MICRO, ERUR #### [facility] [address] [place] [address] Dr. Delmer Rea Protein [Mass/Vol] 7.7 g/dL Normal 6.4-8.2 [facility] Comment on above: Performed By: #### U MICRO, ERUR #### [facility] [address] [place] [address] Dr. Delmer Rea Sodium [Moles/Vol] 140 mmol/L Normal 136-145 [facility] Comment on above: Performed By: #### U MICRO, ERUR #### [facility] [address] [place] [address] Dr. Delmer Rea Urea nitrogen [Mass/Vol] 28.0 mg/dL Critically high 7.0-18.0 [facility] Comment on above: Performed By: #### U MICRO, ERUR #### [facility] [address] [place] [address] Dr. Delmer Rea Urea nitrogen/Creatinine [Mass ratio] 21.7 mg/mg Normal [facility] Comment on above: Performed By: #### U MICRO, ERUR #### [facility] [address] [place] [address] Dr. Delmer Rea H PYLORI ANTIBODY IGGon 11-07 H. PYLORI IGG ABS 4.50 Index Value Critically high 0.00-0. 79 [facility] Comment on above: Result Comment: Nega tive <0.80 Equivocal 0.80 - 0.89 Positive >0.89 Performed By: #### L IPA, DLDL, CON, LIPID, T7, CMP, TSH #### [facility] [address] [place] [address] Dr. Delmer Rea AMYLASEon 11-25-2022 Amylase [Catalytic activity/Vol] 42 U/L Normal 25-115 [facility] Comment on above: Performed By: #### L IPA, DLDL, CON, LIPID, T7, CMP, TSH #### [facility] [address] [place] [address] Dr. Delmer Rea CBC AUTO DIFFon 11-25-2022 BASO # 0.0 103/ul Normal 0.0-0.1 [facility] Comment on above: Performed By: #### U MICRO, ERUR #### [facility] [address] [place] [address] Dr. Delmer Rea Basophils/100 WBC (Bld) 0.6 % Normal 0.2-2.0 [facility] Comment on above: Performed By: #### U MICRO, ERUR #### [facility] [address] [place] [address] Dr. Delmer Rea EO # 0.2 103/ul Normal 0.0-0.7 [facility] Comment on above: Performed By: #### U MICRO, ERUR #### [facility] [address] [address] [address] Delmer Rea Eosinophils/100 WBC (Bld) 3.2 % Normal 0.9-7.0 [facility] Comment on above: Performed By: #### U MICRO, ERUR #### [facility] [address] [place] [address] Dr. Delmer Rea Erythrocyte distribution width (RBC) [Ratio] 13.5 % Normal 11.0-15.0 [facility] Comment on above: Performed By: #### U MICRO, ERUR #### [facility] [address] [place] [address] Dr. Delmer Rea Hematocrit (Bld) [Volume fraction] 28.6 % Critically low 36.0-48.0 [facility] Comment on above: Performed By: #### U MICRO, ERUR #### [facility] [address] [place] [address] Dr. Delmer Rea Hemoglobin (Bld) [Mass/Vol] 10.4 g/dL Critically low 12.0-16.0 [facility] Comment on above: Performed By: #### U MICRO, ERUR #### [facility] [address] [place] [address] Dr. Delmer Rea IG # 0.06 10e3/ul Critically high 0.00-0.03 [facility] Comment on above: Performed By: #### U MICRO, ERUR #### [facility] [address] [place] [address] Dr. Delmer Rea IG % 0.9 % Critically high 0.0-0.5 [facility] Comment on above: Performed By: #### U MICRO, ERUR #### [facility] [address] [place] [address] Dr. Delmer Rea LYMPH # 2.2 103/ul Normal 1.2-3.8 [facility] Comment on above: Performed By: #### U MICRO, ERUR #### [facility] [address] [place] [address] Dr. Delmer Rea Lymphocytes/100 WBC (Bld) 32.2 % Normal 20.5-60.0 [facility] Comment on above: Performed By: #### U MICRO, ERUR #### [facility] [address] [place] [address] Dr. Delmer Rea MANUAL DIFF REQ NO Normal [facility] Comment on above: Performed By: #### U MICRO, ERUR #### [facility] [address] [place] [address] Dr. Delmer Rea MCH (RBC) [Entitic mass] 27.6 pg Normal 26.7-34.0 [facility] Comment on above: Performed By: #### U MICRO, ERUR #### [facility] [address] [place] [address] Dr. Delmer Rea MCHC (RBC) [Mass/Vol] 36.4 g/dL Critically high 29.9-35.2 [facility] Comment on above: Performed By: #### U MICRO, ERUR #### [facility] [address] [place] [address] Dr. Delmer Rea MCV (RBC) [Entitic vol] 75.9 fL Critically low 81.0-99.0 [facility] Comment on above: Performed By: #### U MICRO, ERUR #### [facility] [address] [place] [address] Dr. Delmer Rea MONO # 0.7 103/ul Normal 0.3-0.8 [facility] Comment on above: Performed By: #### U MICRO, ERUR #### [facility] [address] [place] [address] Dr. Delmer Rea Monocytes/100 WBC (Bld) 9.4 % Normal 1.7-12.0 [facility] Comment on above: Performed By: #### U MICRO, ERUR #### [facility] [address] [place] [address] Dr. Delmer Rea NEUT # 3.7 103/ul Normal 1.4-6.5 [facility] Comment on above: Performed By: #### U MICRO, ERUR #### [facility] [address] [place] [address] Dr. Delmer Rea Neutrophils/100 WBC (Bld) 53.7 % Normal 43.0-75.0 [facility] Comment on above: Performed By: #### U MICRO, ERUR #### [facility] [address] [address] [address] Delmer Rea Platelet mean volume (Bld) [Entitic vol] 9.4 fL Critically low 9.5-13.5 [facility] Comment on above: Performed By: #### U MICRO, ERUR #### [facility] [address] [address] [address] Delmer Rea PLT 313 103/ul Normal 150-450 [facility] Comment on above: Performed By: #### U MICRO, ERUR #### [facility] [address] [address] [address] Delmer Rea RBC 3.77 106/ul Critically low 4.20-5.40 [facility] Comment on above: Performed By: #### U MICRO, ERUR #### [facility] [address] [address] [address] Delmer Rea WBC 6.9 103/ul Normal 4.0-11.0 [facility] Comment on above: Performed By: #### U MICRO, ERUR #### [facility] [address] [place] [address] Dr. Delmer Rea DIRECT LDLon 11-25-2022 Cholesterol in LDL [Mass/Vol] 102 mg/dL Normal [facility] Comment on above: Performed By: #### L IPA, DLDL, CON, LIPID, T7, CMP, TSH #### [facility] [address] [place] [address] Dr. Delmer Rea DLDL NORMAL SEE BELOW Normal [facility] Comment on above: Result Comment: <100 mg/dl OPTIMAL 100 - 129 mg/dl NEAR OR ABOVE OPTIMAL 130 - 159 mg/dl BORDERLINE HIGH 160 - 189 mg/dl HIGH >190 mg/dl VERY HIGH Performed By: #### L IPA, DLDL, CON, LIPID, T7, CMP, TSH #### [facility] [address] [address] [address] Delmer Rea FREE THYROXINE INDEX T7on FTI 4.31 Normal 1.30-4.50 [facility] Comment on above: Performed By: #### L IPA, DLDL, CON, LIPID, T7, CMP, TSH #### [facility] [address] [place] [address] Dr. Delmer Rea T3U 35.0 % Normal 30.0-39.0 [facility] Comment on above: Performed By: #### L IPA, DLDL, CON, LIPID, T7, CMP, TSH #### [facility] [address] [place] [address] Dr. Delmer Rea T4 [Mass/Vol] 12.30 ug/dL Normal 4.80-13.90 [facility] Comment on above: Performed By: #### L IPA, DLDL, CON, LIPID, T7, CMP, TSH #### [facility] [address] [place] [address] Dr. Delmer Rea GLYCOHEMOGLOBIN A1Con 2022 ADA RECOMMENDATION SEE BELOW Normal [facility] Comment on above: Result Comment: ADA RECOMMENDED LIMIT 4.0 - 6.0 ADA THERAPEUTIC TARGET < 7.0 ACTION SUGGESTED > 7.0 Performed By: #### U MICRO, ERUR #### [facility] [address] [place] [address] Dr. Delmer Rea Glucose [Mass/Vol] 180 mg/dL Normal [facility] Comment on above: Performed By: #### U MICRO, ERUR #### [facility] [address] [place] [address] Dr. Delmer Rea HbA1c (Bld) [Mass fraction] 7.9 % Critically high 4.5-6.2 [facility] Comment on above: Performed By: #### U MICRO, ERUR #### [facility] [address] [place] [address] Dr. Delmer Rea IRONon 11-25-2022 Iron [Mass/Vol] 35.0 ug/dL Critically low 50.0-170.0 [facility] Comment on above: Performed By: #### L IPA, DLDL, CON, LIPID, T7, CMP, TSH #### [facility] [address] [address] [address] Delmer Rea LIPASEon 11-25-2022 Lipase [Catalytic activity/Vol] 155.0 U/L Normal 73.0-393.0 [facility] Comment on above: Performed By: #### L IPA, DLDL, CON, LIPID, T7, CMP, TSH #### [facility] [address] [address] [address] Delmer Rea LIPID PROFILEon 11-25-2022 CHOL-HDL RATIO NORM SEE BELOW Normal [facility] Comment on above: Result Comment: 3.3 - 4.4 LOW RISK 4.4 - 7.1 AVERAGE RISK 7.1 - 11.0 MODERATE RISK >11.0 HIGH RISK Performed By: #### L IPA, DLDL, CON, LIPID, T7, CMP, TSH #### [facility] [address] [place] [address] Dr. Delmer Rea Cholesterol [Mass/Vol] 238 mg/dL Critically high <=200 [facility] Comment on above: Performed By: #### L IPA, DLDL, CON, LIPID, T7, CMP, TSH #### [facility] [address] [address] [address] Delmer Rea Cholesterol in HDL [Mass/Vol] 39 mg/dL Critically low 40-60 [facility] Comment on above: Performed By: #### L IPA, DLDL, CON, LIPID, T7, CMP, TSH #### [facility] [address] [address] [address] Delmer Rea Cholesterol.total/C holesterol in HDL [Mass ratio] 6.1 {ratio} Normal [facility] Comment on above: Performed By: #### L IPA, DLDL, CON, LIPID, T7, CMP, TSH #### [facility] [address] [place] [address] Dr. Delmer Rea HDL NORMAL > or = 60 mg/dl - LO W CARDIOVASCULAR RISK <40 mg/dl - HIGH CARDIOVASCULAR RISK Normal [facility] Comment on above: Performed By: #### L IPA, DLDL, CON, LIPID, T7, CMP, TSH #### [facility] [address] [address] [address] Delmer Rea LDL CALC NORMAL SEE BELOW Normal [facility] Comment on above: Result Comment: <100 mg/dl OPTIMAL 100 - 129 mg/dl NEAR OR ABOVE OPTIMAL 130 - 159 mg/dl BORDERLINE HIGH 160 - 189 mg/dl HIGH >190 mg/dl VERY HIGH Performed By: #### L IPA, DLDL, CON, LIPID, T7, CMP, TSH #### [facility] [address] [address] [address] Delmer Rea Triglyceride [Mass/Vol] 579 mg/dL Critically high <=150 [facility] Comment on above: Performed By: #### L IPA, DLDL, CON, LIPID, T7, CMP, TSH #### [facility] [address] [address] [address] Delmer Rea VLDL CALC 115.8 mg/dL Normal [facility] Comment on above: Performed By: #### L IPA, DLDL, CON, LIPID, T7, CMP, TSH #### [facility] [address] [place] [address] Dr. Delmer Rea PROF 14(COMP METB)on 023 Albumin [Mass/Vol] 3.5 g/dL Normal 3.4-5.0 [facility] Comment on above: Performed By: #### L IPA, DLDL, CON, LIPID, T7, CMP, TSH #### [facility] [address] [address] [address] Delmer Rea Albumin/Globulin [Mass ratio] 0.8 {ratio} Normal [facility] Comment on above: Performed By: #### L IPA, DLDL, CON, LIPID, T7, CMP, TSH #### [facility] [address] [address] [address] Delmer Rea ALP [Catalytic activity/Vol] 110 U/L Normal 46-116 [facility] Comment on above: Performed By: #### L IPA, DLDL, CON, LIPID, T7, CMP, TSH #### [facility] [address] [address] [address] Delmer Rea ALT [Catalytic activity/Vol] 19 U/L Normal 14-59 [facility] Comment on above: Performed By: #### L IPA, DLDL, CON, LIPID, T7, CMP, TSH #### [facility] [address] [address] [address] Delmer Rea Anion gap [Moles/Vol] 17.0 mmol/L Normal [facility] Comment on above: Performed By: #### L IPA, DLDL, CON, LIPID, T7, CMP, TSH #### [facility] [address] [place] [address] Dr. Delmer Rea AST [Catalytic activity/Vol] 13 U/L Critically low 15-37 [facility] Comment on above: Performed By: #### L IPA, DLDL, CON, LIPID, T7, CMP, TSH #### [facility] [address] [place] [address] Dr. Delmer Rea Bilirubin [Mass/Vol] 0.3 mg/dL Normal 0.2-1.0 [facility] Comment on above: Performed By: #### L IPA, DLDL, CON, LIPID, T7, CMP, TSH #### [facility] [address] [place] [address] Dr. Delmer Rea Calcium [Mass/Vol] 9.6 mg/dL Normal 8.5-10.1 [facility] Comment on above: Performed By: #### L IPA, DLDL, CON, LIPID, T7, CMP, TSH #### [facility] [address] [place] [address] Dr. Delmer Rea Chloride [Moles/Vol] 104 mmol/L Normal 98-107 [facility] Comment on above: Performed By: #### L IPA, DLDL, CON, LIPID, T7, CMP, TSH #### [facility] [address] [place] [address] Dr. Delmer Rea CO2 [Moles/Vol] 22.7 mmol/L Normal 21.0-32.0 [facility] Comment on above: Performed By: #### L IPA, DLDL, CON, LIPID, T7, CMP, TSH #### [facility] [address] [place] [address] Dr. Delmer Rea Creatinine [Mass/Vol] 2.15 mg/dL Critically high 0.55-1.02 [facility] Comment on above: Performed By: #### L IPA, DLDL, CON, LIPID, T7, CMP, TSH #### [facility] [address] [address] [address] Delmer Rea EGFR-AF TURKISH 29 mL/min/1.73m2 Critically low >=60 [facility] Comment on above: Performed By: #### L IPA, DLDL, CON, LIPID, T7, CMP, TSH #### [facility] [address] [address] [address] Delmer Rea EGFR-NON AF TURKISH 24 mL/min/1.73m2 Critically low >=60 [facility] Comment on above: Performed By: #### L IPA, DLDL, CON, LIPID, T7, CMP, TSH #### [facility] [address] [place] [address] Dr. Delmer Rea Globulin (S) [Mass/Vol] 4.3 g/dL Normal [facility] Comment on above: Performed By: #### L IPA, DLDL, CON, LIPID, T7, CMP, TSH #### [facility] [address] [place] [address] Dr. Delmer Rea Glucose [Mass/Vol] 189 mg/dL Critically high 74-106 [facility] Comment on above: Performed By: #### L IPA, DLDL, CON, LIPID, T7, CMP, TSH #### [facility] [address] [place] [address] Dr. Delmer Rea Potassium [Moles/Vol] 4.7 mmol/L Normal 3.5-5.1 [facility] Comment on above: Performed By: #### L IPA, DLDL, CON, LIPID, T7, CMP, TSH #### [facility] [address] [place] [address] Dr. Delmer Rea Protein [Mass/Vol] 7.8 g/dL Normal 6.4-8.2 [facility] Comment on above: Performed By: #### L IPA, DLDL, CON, LIPID, T7, CMP, TSH #### [facility] [address] [address] [address] Delmer Rea Sodium [Moles/Vol] 139 mmol/L Normal 136-145 [facility] Comment on above: Performed By: #### L IPA, DLDL, CON, LIPID, T7, CMP, TSH #### [facility] [address] [address] [address] Delmer Rea Urea nitrogen [Mass/Vol] 48.0 mg/dL Critically high 7.0-18.0 [facility] Comment on above: Performed By: #### L IPA, DLDL, CON, LIPID, T7, CMP, TSH #### [facility] [address] [address] [address] Delmer Rea Urea nitrogen/Creatinine [Mass ratio] 22.3 mg/mg Normal [facility] Comment on above: Performed By: #### L IPA, DLDL, CON, LIPID, T7, CMP, TSH #### [facility] [address] [address] [address] Delmer Rea TSHon 11-25-2022 TSH 0.063 uIU/mL Critically low 0.358-3.740 [facility] Comment on above: Performed By: #### L IPA, DLDL, CON, LIPID, T7, CMP, TSH #### [facility] [address] [address] [address] Delmer Rea Letter (Out)on 11-18-2022 Letter (Out) [id number] Booker Thompson 1970 Date Provider Department Center 11/18/2022 None-[facility] [place] [facility] No family history on file Normal [facility] Follow-Upon 11-11-2022 Follow-Up [id number] Booker Thompson 1970 Date Provider Department Center 11/11/2022 263-[address] ALME[facility] TXP None No family history on file Level of Service:37401 [facility] POST[facility] FOLLOW UP VISIT RELATED TO ORIGINAL PX Reason for Visit and Comments: Follow-up [935992] - Patient reports she never can tell when she has to pee lately, her stomach is still sore. Normal [facility] BASIC METABOLIC PANELon 12-2 -2021 Anion gap [Moles/Vol] 13 mmol/L Normal 7-20 [facility] Comment on above: Performed By: #### L [id number] ####[facility] ([facility])[address] [facility] [place] [address] Calcium [Mass/Vol] 8.3 mg/dL Low 8.6-10.3 [facility] Comment on above: Performed By: #### L AB15 ####[facility] ([facility])[address] [place] [address] Chloride [Moles/Vol] 100 mmol/L Normal 98-107 [facility] Comment on above: Performed By: #### L AB15 ####[facility] ([facility])[address] [place] [address] CO2 [Moles/Vol] 21 mmol/L Normal 21-31 [facility] Comment on above: Performed By: #### L AB15 ####[facility] ([facility])[address] [place] [address] Creatinine [Mass/Vol] 1.56 mg/dL High 0.60-1.20 [facility] Comment on above: Performed By: #### L [id number] ####[facility] ([facility])[address] [facility] [place] [address] GLOMERULAR FILTRATION RATE ML/MIN/1.73 SQ M.PREDICTED 38.2 mL/min/1.73m*2 Low >60.0 [facility] Comment on above: Result Comment: [facility]???s estimated glomerular filtration rate (eGFR) will no longer include consideration of race in its calculation. The National Kidney Foundation???s eGFR Task Force developed new recommendations for the estimation of the glomerular filtration rate in the [place] They recommend immediate implementation of the new equation refit without the race variable in all laboratories because the calculation does not include race. In addition to not including race in the calculation and reporting, it included diversity in its development, and has acceptable performance characteristics and potential consequences that do not disproportionately affect any one group of individuals. Performed By: #### L [id number] ####[facility] ([facility])[address] [place] [address] Glucose [Mass/Vol] 285 mg/dL High 70-100 [facility] Comment on above: Performed By: #### L [id number] ####[facility] ([facility])[address] [place] [address] Potassium [Moles/Vol] 5.1 mmol/L Normal 3.5-5.1 [facility] Comment on above: Performed By: #### L [id number] ####[facility] ([facility])[address] [place] [address] Sodium [Moles/Vol] 134 mmol/L Low 136-145 [facility] Comment on above: Performed By: #### L [id number] ####[facility] ([facility])[address] [place] [address] Urea nitrogen [Mass/Vol] 25 mg/dL Normal 7-25 [facility] Comment on above: Performed By: #### L AB15 ####[facility] ([facility])[address] [place] [address] UREA NITROGEN/CREATININE (MASS RATIO) IN SER/PLAS 16.03 Normal [facility] Comment on above: Performed By: #### L [id number] ####[facility] ([facility])[address] [place] [address] CBCon 10-27-2022 Erythrocyte distribution width (RBC) [Ratio] 13.2 % Normal 11.5-15.0 [facility] Comment on above: Performed By: #### L [id number] ####[facility] ([facility])[address] [place] [address] ERYTHROCYTE MEAN CORPUSCULAR HEMOGLOBIN CONCENTRATION (G/DL) BY AUTOMATED 33.3 g/dL Normal 32.0-35.0 [facility] Comment on above: Performed By: #### L [id number] ####[facility] [place] [address] Hematocrit (Bld) [Volume fraction] 28.8 % Low 36.0-48.0 [facility] Comment on above: Performed By: #### L [id number] ####[facility] [address] Hemoglobin (Bld) [Mass/Vol] 9.6 g/dL Low 12.0-15.0 [facility] Comment on above: Performed By: #### L [id number] ####[facility] [place] [address] MCH (RBC) [Entitic mass] 28.1 pg Normal 27.0-33.0 [facility] Comment on above: Performed By: #### L [id number] ####[facility] ([facility])[address] [address] MCV (RBC) [Entitic vol] 84.2 fL Normal 82.0-98.0 [facility] Comment on above: Performed By: #### L [id number] ####[facility] ([facility])[address] [place] [address] PLATELETS (10*3/UL) IN BLOOD AUTOMATED COUNT 283 10*3/uL Normal 150-400 [facility] Comment on above: Performed By: #### L [id number] ####[facility] ([facility])[address] [place] [address] RBC (Bld) [#/Vol] 3.42 10*6/uL Low 3.80-5.00 [facility] Comment on above: Performed By: #### L [id number] ####[facility] [address] WBC (Bld) [#/Vol] 11.07 10*3/uL High 4.00-10.60 [facility] Comment on above: Performed By: #### L [id number] ####[facility] [place] [address] DSon 12-22-2022 DS ---- -------- Attestation signed by Castillo Almeida MD at 11/04/2022 2:08 PM I saw and evaluated the patient, participating in the trevizo portions of the service. I reviewed the resident???s note. I agree with the resident???s findings and plan. Castillo Almeida MD -------- Dr. Alexandru Rojas, Dr. Bishnu Burnett, Dr. Kris Patel, Dr. Barron Almeida, Dr. Brandon Morales , Dr. Sterling Ku, Luther Tesfaye MD Admission Admitted 10/26/2022 for Atrophic kidney Discharge Diagnosis Atrophic kidney Discharge Disposition Home or Self Care Discharge Medications Your medication list START taking these medications Instructions Last Dose Given Next Dose Due docusate sodium 100 mg capsule Commonly known as: Colace Take 1 capsule (100 mg) by mouth in the morning and at bedtime for 15 days. docusate sodium 100 mg capsule Commonly known as: Colace Take 1 capsule (100 mg) by mouth in the morning and at bedtime for 15 days. oxyCODONE-acetaminophen 5-325 mg tablet Commonly known as: Percocet Take 1 tablet by mouth every 6 (six) hours if needed for severe pain (8-10 pain score) for up to 5 days. sulfamethoxazole-trimeth oprim 800-160 mg tablet Commonly known as: Bactrim DS Take 1 tablet by mouth in the morning and at bedtime for 7 days. CONTINUE taking these medications Instructions Last Dose Given Next Dose Due aspirin 81 mg EC tablet atorvastatin 20 mg tablet Commonly known as: Lipitor DULoxetine [address] capsule Commonly known as: Cymbalta furosemide 20 mg tablet Commonly known as: Lasix gabapentin 600 mg tablet Commonly known as: Neurontin HumuLIN 70/30 U-100 Insulin 100 unit/mL (70-30) injection Generic drug: insulin NPH and regular human hydrALAZINE 25 mg tablet Commonly known as: Apresoline hydroCHLOROthiazide 25 mg tablet Commonly known as: HYDRODiuril levothyroxine 175 mcg tablet Commonly known as: Synthroid, Levoxyl losartan 100 mg tablet Commonly known as: Cozaar magnesium oxide 200 mg split tablet Commonly known as: Mag-Ox metFORMIN 500 mg tablet Commonly known as: Glucophage nitrofurantoin (macrocrystal-monohydrat e) 100 mg capsule Commonly known as: Macrobid Take 1 capsule (100 mg) by mouth in the morning and at bedtime for 5 days. oxybutynin XL 10 mg 24 hr tablet Commonly known as: Ditropan-XL Take 1 tablet (10 mg) by mouth in the morning. Do not crush, chew, or split. 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 POD1 pt is AF HDS, labs all normal. Pt is ambulating, passing gas and tolerating diet. She is without significant pain and PE is also WNL. Pt had slight inc in Cr 1.5 from 1.3 likely acutely postop given nephrectomy but is making good urine. Pt s stable for dc with outpt fu. Pertinent Physical Exam At Time of Discharge Eyes: Pupils: Pupils are equal, round, and reactive to light. Cardiovascular: Rate and Rhythm: Normal rate. Pulmonary: Effort: Pulmonary effort is normal. Abdominal: General: Abdomen is flat. Palpations: Abdomen is soft. Comments: Incisions CDI Skin: General: Skin is warm. Neurological: Mental Status: She is alert and oriented to person, place, and time. Lab Results Labs Reviewed POCT GLUCOSE METER UNSOLICITED RESULTS - Abnormal Result Value Glucose POC 165 (*) ARTERIAL BLOOD GAS WITH CO-OXIMETRY - Abnormal pH, Arterial 7.40 pCO2, Arterial 34 (*) pO2, Arterial 197 (*) HCO3, Arterial 21.1 Total Hemoglobin 9.4 (*) O2 Sat, Arterial 99.3 (*) Carboxyhemoglobin 1.0 Methemoglobin 1.1 Deoxyhemoglobin 0.7 (*) Base Excess, Arterial -3.2 (*) Source Of Oxygen Vent Oxyhemoglobin 97.3 (*) CALCIUM, IONIZED - Abnormal Calcium, Ion 1.14 (*) POTASSIUM, WHOLE BLOOD - Abnormal Potassium, Whole Blood 3.4 (*) POCT GLUCOSE METER UNSOLICITED RESULTS - Abnormal Glucose POC 139 (*) POCT GLUCOSE METER UNSOLICITED RESULTS - Abnormal Glucose POC 135 (*) ARTERIAL BLOOD GAS WITH CO-OXIMETRY - Abnormal pH, Arterial 7.32 (*) pCO2, Arterial 40 pO2, Arterial 202 (*) HCO3, Arterial 20.6 (*) Total Hemoglobin 10.8 (*) O2 Sat, Arterial 100.0 (*) Carboxyhemoglobin 1.4 Methemoglobin 1.5 Deoxyhemoglobin 0 (*) Base Excess, Arterial -5.1 (*) Source Of Oxygen Vent Oxyhemoglobin 97.1 (*) CALCIUM, IONIZED - Abnormal Calci (more content not included)... Normal [facility] MAGNESIUMon 10-27-2022 Magnesium [Mass/Vol] 1.1 mg/dL Low 1.9-2.7 [facility] Comment on above: Performed By: #### L [id number] ####[facility] (BEAKER)[address] [place] [address] PHOSPHORUSon 10-27-2022 Magnesium [Mass/Vol] 3.4 mg/dL Normal 2.5-5.0 [facility] Comment on above: Performed By: #### L [id number] ####[facility] (BEAKER)[address] [place] [address] POCT GLUCOSE METER UNSOLICIT ED RESULTSon 10-27-2022 Glucose [Mass/Vol] 301 mg/dL High 70-105 [facility] Comment on above: Result Comment: gcul kow Performed By: #### L [id number] ####[facility] ([facility])[address] [place] [address] Glucose [Mass/Vol] 274 mg/dL High 70-105 [facility] Comment on above: Result Comment: gcul kow Performed By: #### L [id number] ####[facility] (BESHANNAN)[address] [place] [address] 29on 10-26-2022 29 Addendum created 10/26/221953 by Kesha Fernandez DO Clinical Note Signed, SmartForm saved Normal [facility] ARTERIAL BLOOD GAS WITH CO-O XIMETRYon 10-26-2022 Base excess Calc (Bld) [Moles/Vol] -5.1000 mmol/L Low -2.0-3.0 [facility] Comment on above: Performed By: #### L [id number] ####[facility] [id number] [place] [address] [facility] CARBOXYHEMOGLOBIN/H EMOGLOBIN TOTAL % IN BLOOD 1.4 % Normal 0.0-3.0 [facility] Comment on above: Performed By: #### L [id number] ####[facility] [id number] [place] [address] [facility] CO2 (Bld) [Partial pressure] 40 mm[Hg] Normal 35-48 [facility] Comment on above: Performed By: #### L [id number] ####[facility] [id number] [place] [address] [place] DEOXYGENATED HEMOGLOBIN IN BLOOD 0 % Low 1-5 [facility] Comment on above: Performed By: #### L [id number] ####[facility] [id number] [place] [address] [place] HCO3 (Bld) [Moles/Vol] 20.6 mmol/L Low 21.0-28.0 [facility] Comment on above: Performed By: #### L [id number] ####[facility] [id number] [place] [address] [facility] Hemoglobin (Bld) [Mass/Vol] 10.8 g/dL Low 11.7-17.4 [facility] Comment on above: Performed By: #### L [id number] ####[facility] [id number] [place] [address] [facility] METHEMOGLOBIN/100 IN BLOOD 1.5 % Normal 0.0-1.5 [facility] Comment on above: Performed By: #### L [id number] ####[facility] [id number] [place] [address] [facility] Oxygen (Bld) [Partial pressure] 202 mm[Hg] High 83-100 [facility] Comment on above: Performed By: #### L [id number] ####[facility] [id number] [place] [address] [facility] OXYGEN SATURATION (%) IN ARTERIAL BLOOD 100.0 % High 94.0-98.0 [facility] Comment on above: Performed By: #### L [id number] ####[facility] [id number] [place] [address] [facility] OXYGENATED HEMOGLOBIN IN BLOOD 97.1 % High 90.0-95.0 [facility] Comment on above: Performed By: #### L [id number] ####[facility] [id number] [place] [address] [facility] pH (Bld) 7.32 [pH] Low 7.35-7.45 [facility] Comment on above: Performed By: #### L [id number] ####[facility] [id number] [place] [address] [facility] SOURCE OF OXYGEN Vent Normal [facility] Comment on above: Performed By: #### L [id number] ####[facility] [id number] [place] [address] [facility] Base excess Calc (Bld) [Moles/Vol] -3.2000 mmol/L Low -2.0-3.0 [facility] Comment on above: Performed By: #### L [id number] ####[facility] [id number] [place] [address] [place] CARBOXYHEMOGLOBIN/H EMOGLOBIN TOTAL % IN BLOOD 1.0 % Normal 0.0-3.0 [facility] Comment on above: Performed By: #### L [id number] ####[facility] [id number] [place] [address] [place] CO2 (Bld) [Partial pressure] 34 mm[Hg] Low 35-48 [facility] Comment on above: Performed By: #### L [id number] ####[facility] [id number] [place] [address] [place] DEOXYGENATED HEMOGLOBIN IN BLOOD 0.7 % Low 1-5 [facility] Comment on above: Performed By: #### L [id number] ####[facility] [id number] [place] [address] [place] HCO3 (Bld) [Moles/Vol] 21.1 mmol/L Normal 21.0-28.0 [facility] Comment on above: Performed By: #### L [id number] ####[facility] [id number] [place] [address] [place] Hemoglobin (Bld) [Mass/Vol] 9.4 g/dL Low 11.7-17.4 [facility] Comment on above: Performed By: #### L [id number] ####[facility] [id number] [place] [address] [place] METHEMOGLOBIN/100 IN BLOOD 1.1 % Normal 0.0-1.5 [facility] Comment on above: Performed By: #### L [id number] ####[facility] [id number] [place] [address] [place] Oxygen (Bld) [Partial pressure] 197 mm[Hg] High 83-100 [facility] Comment on above: Performed By: #### L [id number] ####[facility] [id number] [place] [address] [place] OXYGEN SATURATION (%) IN ARTERIAL BLOOD 99.3 % High 94.0-98.0 [facility] Comment on above: Performed By: #### L [id number] ####[facility] [id number] [place] [address] [place] OXYGENATED HEMOGLOBIN IN BLOOD 97.3 % High 90.0-95.0 [facility] Comment on above: Performed By: #### L [id number] ####[facility] [id number] [place] [address] [place] pH (Bld) 7.40 [pH] Normal 7.35-7.45 [facility] Comment on above: Performed By: #### L [id number] ####[facility] [id number] [place] [address] [place] SOURCE OF OXYGEN Vent Normal [facility] Comment on above: Performed By: #### L [id number] ####[facility] [id number] [address] [facility] Anesthesiaon 10-26-2022 Anesthesia [id number] Booker Thompson 1970 Date Provider Department [facility] 10/26/2022 KESHA REYES [facility] No family history on file Normal [facility] BASIC METABOLIC PANELon 10-07 Anion gap [Moles/Vol] 12 mmol/L Normal 7-20 [facility] Comment on above: Performed By: #### L [id number] ####[facility] ([facility]ER)[address] [place] [address] Calcium [Mass/Vol] 8.3 mg/dL Low 8.6-10.3 [facility] Comment on above: Performed By: #### L [id number] ####[facility] ([facility]AKER)[address] [facility] [place] [address] Chloride [Moles/Vol] 107 mmol/L Normal 98-107 [facility] Comment on above: Performed By: #### L [id number] ####[facility] ([facility]AKER)[address] [place] [address] CO2 [Moles/Vol] 20 mmol/L Low 21-31 [facility] Comment on above: Performed By: #### L [id number] ####[facility] ([facility])[address] [place] [address] Creatinine [Mass/Vol] 1.38 mg/dL High 0.60-1.20 [facility] Comment on above: Performed By: #### L [id number] ####[facility] ([facility])[address] [place] [address] GLOMERULAR FILTRATION RATE ML/MIN/1.73 SQ M.PREDICTED 44.3 mL/min/1.73m*2 Low >60.0 [facility] Comment on above: Result Comment: The [facility]???s estimated glomerular filtration rate (eGFR) will no longer include consideration of race in its calculation. The National Kidney Foundation???s eGFR Task Force developed new recommendations for the estimation of the glomerular filtration rate in the [place] They recommend immediate implementation of the new equation refit without the race variable in all laboratories because the calculation does not include race. In addition to not including race in the calculation and reporting, it included diversity in its development, and has acceptable performance characteristics and potential consequences that do not disproportionately affect any one group of individuals. Performed By: #### L [id number] ####[facility] ([facility])[address] [place] [address] Glucose [Mass/Vol] 177 mg/dL High 70-100 [facility] Comment on above: Performed By: #### L [id number] ####[facility] ([facility])[address] [place] [address] Potassium [Moles/Vol] 4.4 mmol/L Normal 3.5-5.1 [facility] Comment on above: Performed By: #### L [id number] ####[facility] ([facility])[address] [place] [address] Sodium [Moles/Vol] 139 mmol/L Normal 136-145 [facility] Comment on above: Performed By: #### L [id number] ####[facility] ([facility])[address] [place] [place] [address] Urea nitrogen [Mass/Vol] 23 mg/dL Normal 7-25 [facility] Comment on above: Performed By: #### L [id number] ####[facility] (BEAKER)[address] [place] [address] UREA NITROGEN/CREATININE (MASS RATIO) IN SER/PLAS 16.67 Normal [facility] Comment on above: Performed By: #### L [id number] ####[facility] (BEAKER)[address] [place] [address] CALCIUM, IONIZEDon CALCIUM IONIZED (MMOL/L) IN BLOOD 1.08 mmol/L Low 1.15-1.33 [facility] Comment on above: Performed By: #### C ALCIUM, IONIZED ####[facility] [id number] [place] [address] [place] CALCIUM IONIZED (MMOL/L) IN BLOOD 1.14 mmol/L Low 1.15-1.33 [facility] Comment on above: Performed By: #### C ALCIUM, IONIZED ####[facility] [id number] [place] [address] [place] CBCon 10-26-2022 Erythrocyte distribution width (RBC) [Ratio] 13.2 % Normal 11.5-15.0 [facility] Comment on above: Performed By: #### L [id number] ####[facility] (BEAKER)[address] [place] [address] ERYTHROCYTE MEAN CORPUSCULAR HEMOGLOBIN CONCENTRATION (G/DL) BY AUTOMATED 32.1 g/dL Normal 32.0-35.0 [facility] Comment on above: Performed By: #### L [id number] ####[facility] (BEAKER)[address] [place] [address] Hematocrit (Bld) [Volume fraction] 29.9 % Low 36.0-48.0 [facility] Comment on above: Performed By: #### L [id number] ####[facility] (BEAKER)[address] [place] [address] Hemoglobin (Bld) [Mass/Vol] 9.6 g/dL Low 12.0-15.0 [facility] Comment on above: Performed By: #### L [id number] ####[facility] ([facility])[address] [place] [address] MCH (RBC) [Entitic mass] 27.6 pg Normal 27.0-33.0 [facility] Comment on above: Performed By: #### L [id number] ####[facility] ([facility])[address] [place] [address] MCV (RBC) [Entitic vol] 85.9 fL Normal 82.0-98.0 [facility] Comment on above: Performed By: #### L [id number] ####[facility] ([facility])[address] [place] [address] PLATELETS (10*3/UL) IN BLOOD AUTOMATED COUNT 290 10*3/uL Normal 150-400 [facility] Comment on above: Performed By: #### L [id number] ####[facility] ([facility])[address] [place] [address] RBC (Bld) [#/Vol] 3.48 10*6/uL Low 3.80-5.00 [facility] Comment on above: Performed By: #### L [id number] ####[facility] ([facility] [place] [address] WBC (Bld) [#/Vol] 10.81 10*3/uL High 4.00-10.60 [facility] Comment on above: Performed By: #### L [id number] ####[facility] ([facility])[address] [place] [address] HISTOLOGY - TISSUE EXAMon LAB AP CASE REPORT Normal [facility] Comment on above: Order Comment: Pre-o p diagnosis: Atrophic kidney [N26.1] Result Comment: Surg ical Pathology Case: [id number] Authorizing Provider: Castillo Almeida MD Collected: 10/26/2022 1321 [facility] Main Operating Room Received: 10/26/2022 1424 Pathologist: Natalia Macias MD Specimen: Kidney, 1. left kidney Performed By: #### L [id number] #### [facility] (BEAKER) [address] [facility] [address] LAB AP CLINICAL INFORMATION Normal [facility] Comment on above: Order Comment: Pre-o p diagnosis: Atrophic kidney [N26.1] Result Comment: Pre- op diagnosis: Atrophic kidney [N26.1] Performed By: #### L [id number] #### [facility] (BEAKER) [address] [facility] [address] LAB AP GROSS DESCRIPTION A. Kidney. Normal [facility] Comment on above: Order Comment: Pre-o p diagnosis: Atrophic kidney [N26.1] Result Comment: Rece ived in formalin labeled Asa Thompson, 1. left kidney , is a 641 g left nephrectomy specimen with attached perinephric fat and Gerota's fascia, measuring 24.5 x 11.5 x 6.0 cm overall. The kidney proper is 9.9 x 4.3 x 2.4 cm. The arterial margin is 1.7 cm in length by x 0.3 in diameter, the venous margin is 0.7 cm in length by 0.4 cm in diameter, and the ureteral margin is 2.5 cm in length by 0.5 cm in diameter. The arteries are slightly calcified. There is a white plastic stent, 33.0 cm in length by 0.3 cm in diameter, protruding from the ureter and extending through the opposing surface of the kidney. The area around the stent is inked green. The kidney is bivalved to reveal villagran-pink, atrophied, and mildly edematous renal parenchyma with ill-defined corticomedullary junctions. The renal pelvis is occupied by 2 irregular, firm, villagran-williamson stones, 3.0 x 2.3 x 1.5 cm and 1.5 x 1.2 x 1.0 cm. There is a small 0.1 x 0.1 x 0.1 cm cyst-like structure in the lower pole of the kidney. No masses or other lesions are identified. No adrenal gland is identified. The hilar fat is sectioned to reveal 2 villagran-yellow, firm and rubbery possible lymph nodes, measuring 1.4 x 1.0 x 0.2 cm and 0.5 x 0.5 x 0.4 cm. Gross photographs are taken. Vegetable Canner sections are submitted as follows: 1 vascular margins, en face and ureteral margin, en face 2 upper pole of kidney 3 mid kidney with sinus fat 4 lower pole of kidney with capsule and perinephric fat 5 renal pelvis underlying stones 6 area surrounding stent 7 possible cyst and parenchyma to pelvis 8 Gerota's fascia 9 possible lymph nodes Edith Jay, Pathologists' Patient Ombudsperson Student Performed By: #### L [id number] #### [facility] (BEAKER) [address] [place] [address] LAB AP MICROSCOPIC DESCRIPTION Microscopic examination performed. 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 I reviewed the resident???s note. I agree with the resident???s findings and plan. Castillo Almeida MD -------- Dr. Alexandru Rojas, Dr. Bishnu Burnett, Dr. Kris Patel, Dr. Barron Almeida, Dr. Brandon Morales , Dr. Sterling Ku, Luther Tesfaye MD' History Of Present Illness Asa Thompson is a 52 y.o. female presenting with large stone burden on the left-hand side with minimal function of the left kidney found on NM renal scan with only 14% function. Patient is now here for robotic assisted left nephrectomy. Past Medical History She has a past medical history of Atrophy of left kidney, CVA (cerebral vascular accident) [facility] (2021), Diabetes mellitus [facility]), and Kidney stone. Surgical History She has a past surgical history that includes Hysterectomy; Cystoscopy w/ ureteral stent placement (Left, 07/26/2022); and Other surgical history (10/20/2022). Social History She reports that she has never smoked. She has never used smokeless tobacco. She reports that she does not currently use alcohol. She reports that she does not currently use drugs. Family History No family history on file. Allergies Dilaudid [hydromorphone], Morphine, and Penicillins Medications Medications Prior to Admission Medication Sig Dispense Refill Last Dose aspirin 81 mg EC tablet Take 81 mg by mouth in the morning. Past Month atorvastatin (Lipitor) 20 mg tablet atorvastatin 20 mg tablet Past Month DULoxetine (Cymbalta) [address] capsule Take 60 mg by mouth in the morning. Do not crush or chew. Past Month furosemide (Lasix) 20 mg tablet Take by mouth. Past Week gabapentin (Neurontin) 600 mg tablet Take 600 mg by mouth in the morning, at noon, and at bedtime. 10/25/2022 hydrALAZINE (Apresoline) 25 mg tablet Take by mouth. Past Week hydroCHLOROthiazide (HYDRODiuril) 25 mg tablet Take 25 mg by mouth in the morning. Past Month insulin NPH and regular human (HumuLIN 70/30 U-100 Insulin) 100 unit/mL (70-30) injection 70 units in AM 30 units pm as needed 10/26/2022 levothyroxine (Synthroid, Levoxyl) 175 mcg tablet levothyroxine 175 mcg tablet Past Week losartan (Cozaar) 100 mg tablet Take 100 mg by mouth in the morning. Past Week magnesium oxide (Mag-Ox) 200 mg split tablet Take 400 mg by mouth. Past Week metFORMIN (Glucophage) 500 mg tablet metformin 500 mg tablet Past Week nitrofurantoin, macrocrystal-monohydrate , (Macrobid) 100 mg capsule Take 1 capsule (100 mg) by mouth in the morning and at bedtime for 5 days. 10 capsule 0 10/26/2022 oxybutynin XL (Ditropan-XL) 10 mg 24 hr tablet Take 1 tablet (10 mg) by mouth in the morning. Do not crush, chew, or split. 30 tablet 1 10/25/2022 Review of Systems All other systems reviewed and are negative. Last Recorded Vitals Patient Vitals for the past 24 hrs: BP Temp Temp src Pulse Resp SpO2 Height Weight 10/26/22 0659 (!) 194/84 36 ???C (96.8 ???F) Temporal 82 18 100 % 1.651 m (5' 5 ) 110 kg (242 lb 8.1 oz) Physical Exam HENT: Head: Normocephalic. Mouth/Throat: Mouth: Mucous membranes are moist. Cardiovascular: Rate and Rhythm: Normal rate. Pulmonary: Effort: Pulmonary effort is normal. Abdominal: General: Abdomen is flat. Palpations: Abdomen is soft. Skin: General: Skin is warm. Neurological: General: No focal deficit present. Mental Status: She is alert and oriented to person, place, and time. Psychiatric: Mood and Affect: Mood normal. Relevant Lab Results Lab Results Component Value Date NA 138 09/27/2022 K 4.7 09/27/2022 CL 104 09/27/2022 CO2 22 09/27/2022 BUN 29 (H) 09/27/2022 CREATININE 1.35 (H) 09/27/2022 GLUCOSE 268 (H) 09/27/2022 CALCIUM 9.3 09/27/2022 ANIONGAP 12 09/27/2022 EGFR 45.5 (L) 09/27/2022 BCR 21.48 09/27/2022 Relevant Imaging Results ECG 12 lead Normal sinus rhythm Septal infarct , age undetermined Abnormal ECG No previous ECGs available Confirmed by MD VARINDER, EHAB ([id number]) on 09/27/2022 12:34:32 PM Assessment/Plan Principal Problem: Atrophic kidney N.p.o. Consent Left nephrectomy robotic assisted Normal [facility] NURSNOTEon 10-26-2022 NURSNOTE Report called to [facility]. [facility] at bedsid e with spouse. Normal [facility] OPNOTEon 10-26-2022 OPNOTE ---- -------- Attestation signed by Castillo Almeida MD at 10/29/2022 1:39 PM I was present for the entirety of the procedure(s). Castillo Almeida MD -------- NEPHRECTOMY, ROBOT-ASSISTED (L) Operative Note Date: 10/26/2022 [facility] Name: Asa Thompson, : 1970, Diagnosis Pre-op Diagnosis * Atrophic kidney [N26.1] Post-op Diagnosis * Atrophic kidney [N26.1] Procedures Robot assisted laparoscopic radical nephrectomy-left side Surgeons * Castillo Almeida - Primary Procedure Summary Anesthesia: General ASA: II Estimated Blood Loss: 150 mL Total IV Fluids: 2700 mL Drains: Female External Urinary Catheter (Active) Wall Suction (mmHg) 40 10/26/22 1500 External Catheter Status In place 10/26/22 1500 [REMOVED] Urethral Catheter Non-latex 16 Fr. (Removed) Specimens ID Source Type Tests Collected By Collected At Frozen? Priority Lab ID A Kidney Tissue HISTOLOGY - TISSUE EXAM Castillo Almeida MD 10/26/22 1321 No Routine [id number] Description: 1. left kidney Staff: Event Set Up Specialist: Carlyn Harrison RN; Aime Burks RN Relief Scrub: Zan Reyes CST Scrub Person: Loida Solorio CST Flare Breaker: Meghan Lee CSA [employer] Event Set Up Specialist: Jeannine Rojas Scrub: Nubia Kebede Indications: Asa Thompson is an 52 y.o. female who is having surgery for left Atrophic kidney [N26.1] with recurrent infections. H&P was reviewed, informed consent was obtained, patient understood risk, benefits, alternatives of the procedure and wished to proceed. Procedure Details: The patient was seen in the preoperative area. The risks, benefits, complications, treatment options, non-operative alternatives, expected recovery and outcomes were discussed with the patient. The possibilities of reaction to medication, pulmonary aspiration, injury to surrounding structures, bleeding, recurrent infection, the need for additional procedures, failure to diagnose a condition, and creating a complication requiring transfusion or operation were discussed with the patient. The patient concurred with the proposed plan, giving informed consent. The site of surgery was properly noted/marked if necessary per policy. The patient has been actively warmed in preoperative area. Preoperative antibiotics including 200 mg of fluconazole and 2 g of Ancef was administered. The patient was then brought to the operative suite and placed on continuous oximetry and cardiac monitoring by anesthesia. atient was brought back to the operating room. Laid in the supine position. EPC cuffs were placed on and functioning prior to anesthesia. Antibiotics were given. Cabrales catheter was placed. General anesthesia was inducted. Patient was then placed in lateral decubitus position. Pressure points were padded. Axillary roll was placed. Patient was then prepped, draped in usual sterile standard fashion. We initially tried with the Veress needle to enter at the umbilicus but was unsuccessful. We then made an incision at her lower abdomen following her prior panniculectomy scar. We then dissected through the fat into the fascia and entered into the abdominal cavity. We then placed a Giovanny retractor with a gel point over the incision and using the 30 degree scope entered into the abdominalcavity. Entered the intra-abdominal cavity under direct visualization.Robotic ports were placed under direct visualizations. The Robot was docked. The left white line of Toldt was cut and the colon was reflected. This was carried down to valley, and the ureter and gonadal vessel were identified. The tail of gerota's was lifted off the psoas and the kidney was lifted. We approached the hilum and the artery and vein were dissected out completely. We then dissected off the superior aspect by incising the peritoneum superiorly. The stapler was used to ligate the hilum without issues. The lateral attachments of the kidney were dissected and we mobilized the kidney completely. The tail of gerota's and the ureter was also ligated. We then ligated the nephrostomy tube and it was pulled out from the patient's back. The antegrade stent was also removed through the 12 mm port. The specimen was placed in the endocatch bag.The surgical bed was inspected and it was hemostatic. The robot was undocked.The specimen was removed from one of the robotic port sites. The fascia was closed with running 1-0 PDS suture from each apex and tied in the middle. The robotic ports were removed under direct visualization without evidence of bleeding. The skin was closed with staple. Case was concluded and patient tolerated the procedure well. Anesthesia was reversed and patient was extubated, taken to recovery in stable conditon. Patient was admitted to the floor for routine post op care. The Attending was pr (more content not included)... Normal [facility] POCT GLUCOSE METER UNSOLICIT ED RESULTSon 10-26-2022 Glucose [Mass/Vol] 209 mg/dL High 70-105 [facility] Comment on above: Result Comment: sabino pacew Performed By: #### L [id number] ####[facility] ([facility] [place] [address] Glucose [Mass/Vol] 143 mg/dL High 70-105 [facility] Comment on above: Result Comment: czyd orc Performed By: #### L [id number] ####[facility] ([facility])[address] [place] [address] Glucose [Mass/Vol] 146 mg/dL High 70-105 [facility] Comment on above: Result Comment: [email or web address] Performed By: #### L [id number] ####[facility] ([facility])[address] [place] [address] Glucose [Mass/Vol] 135 mg/dL High 70-105 [facility] Comment on above: Result Comment: eileen [email or web address] Performed By: #### L [id number] ####[facility] ([facility])[address] [place] [address] Glucose [Mass/Vol] 139 mg/dL High 70-105 [facility] Comment on above: Result Comment: eileen [email or web address] Performed By: #### L [id number] ####[facility] ([facility])[address] [place] [address] Glucose [Mass/Vol] 102 mg/dL Normal 70-105 [facility] Comment on above: Result Comment: eileen [email or web address] Performed By: #### L [id number] ####[facility] ([facility])[address] [place] [address] Glucose [Mass/Vol] 165 mg/dL High 70-105 [facility] Comment on above: Result Comment: [address] Performed By: #### L [id number] ####[facility] ([facility])[address] [place] [place] [address] POCT SARS-COV-2 PCRon 2021 POC SARS-COV-2 ANTIGEN Negative Normal Negative [facility] Comment on above: Result Comment: ID N OW COVID-19 assay performed on the ID NOW Instrument is a rapid molecular in vitro diagnostic test utilizing an isothermal nucleic acid amplification technology intended for the qualitative detection of nucleic acid from the SARS-CoV-2 virus in direct anterior nasal(nasal), nasopharyngeal or throat swabs from individuals who are suspected of COVID-19 by their healthcare provider within the first seven days of the onset of symptoms.Testing is limited to laboratories certified under the Clinical Laboratory Improvement Amendments of 1988 (CLIA), 42 U.S.C. ???263a,that meet the requirements to perform high, moderate, or waived complexity tests. The ID NOW COVID-19 assay is also authorized for use at the Point of Care (POC), i.e., in patient care settings operating under a CLIA Certificate of Waiver, Certificate of Compliance, or Certificate of Accreditation. Performed By: #### L [id number] ####[facility] ([facility] [place] [address] POTASSIUM, WHOLE BLOODon Potassium [Moles/Vol] 3.4 mmol/L Low 3.5-5.1 [facility] Comment on above: Performed By: #### P OTASSIUM, WHOLE BLOOD ####[facility] [id number] [place] [address] [facility] Potassium [Moles/Vol] 3.4 mmol/L Low 3.5-5.1 [facility] Comment on above: Performed By: #### P OTASSIUM, WHOLE BLOOD ####[facility] [id number] [place] [address] [place] SODIUM, WHOLE BLOODon 2021 SODIUM, WHOLE BLOOD 138 Normal 136-145 [facility] Comment on above: Performed By: #### S ODIUM, WHOLE BLOOD ####[facility] [id number] [place] [address] [place] SODIUM, WHOLE BLOOD 140 Normal 136-145 [facility] Comment on above: Performed By: #### S ODIUM, WHOLE BLOOD ####[facility] [id number] [place] [address] [place] TYPE AND SCREENon 10-26-2022 AB SCREEN Negative Normal [facility] Comment on above: Performed By: #### L [id number] ####[facility], ABO group Nom (Bld) A Normal [facility] Comment on above: Performed By: #### L [id number] ####[facility], RH TYPE IN BLOOD Positive Normal [facility] Comment on above: Performed By: #### L [id number] ####[facility], URINE CULTURE, ROUTINEon Ampicillin [Susc] 1 ug/ml Susceptible [facility] Comment on above: Performed By: #### L [id number] #### [facility]) [address] [place] [address] Nitrofurantoin [Susc] <=16 Susceptible [facility] Comment on above: Performed By: #### L [id number] #### [facility]) [address] [place] [address] Vancomycin [Susc] 2 ug/ml Susceptible [facility] Comment on above: Performed By: #### L [id number] #### [facility] (BEAKER) [address] [place] [address] Letter (Out)on 10-18-2022 Letter (Out) [id number] Booker Thompson 1970 F [facility] Department [facility] 10/18/2022 None-None [facility] [place] [facility] No family history on file [place] Letter (Out)on 10-14-2022 Letter (Out) [id number] Booker Thompson 1970 [facility] Department [facility] 10/14/2022 None-None [facility] [place] [facility] No family history on file [place] Orders Onlyon 10-14-2022 Orders Only [id number] Booker Thompson 1970 F Date [facility] Department [facility] 10/14/2022 3561-NUBIA LOZANO [place]Clare None No family history on file [place] 29on 10-13-2022 29 Addended by: NUBIA LOZANO on: 10/14/2022 10:21 AM Modules accepted: Orders [place] APTTon 10-13-2022 ACTIVATED PARTIAL THROMBOPLASTIN TIME IN PPP BY COAGULATION ASSAY 28.4 Seconds Normal 25.0-35.0 [facility] Comment on above: Performed By: #### L [id number] ####[facility] (BEAKER)[address] [place] [address] Follow-Upon 10-13-2022 Follow-Up [id number] Booker Thompson 1970 F Date Provider Department Center 10/13/2022 NUBIA DUNN [place] None No family history on file Level of Service:42859 NE OFFICE/OUTPATIENT ESTABLISHED LOW [facility] 20-29 MIN Reason for Visit and Comments: Pre-op Exam [[id number]] - Patient has a few questions about procedure, bleedig afterwards etc Normal [facility] PROTIME-INRon 10-13-2022 INR IN PPP BY COAGULATION ASSAY 0.99 Normal 0.90-1.10 [facility] Comment on above: Result Comment: [facility] P RECOMMENDED INR FOR WARFARIN THERAPY CONDITION INR PROPHYLAXIS OF VENOUS THROMBOSIS 2-3 (HIGH-RISK SURGERY) TREATMENT OF VENOUS THROMBOSIS 2-3 TREATMENT OF PULMONARY EMBOLISM 2-3 PREVENTION OF SYSTEMIC EMBOLISM: 2-3 ACUTE MYOCARDIAL INFARCTION TISSUE HEART VALVES VALVULAR HEART DISEASE ATRIAL FIBRILLATION RECURRENT SYSTEMIC EMBOLISM MECHANICAL HEART VALVE 2.5-3.5 FROM: ORAL ANTICOAGULANTS. MECHANISM OF ACTION, CLINICAL EFFECTIVENESS, AND OPTIMAL THERAPEUTIC RANGE. CHEST 1995;108:231S-246S. Performed By: #### L [id number] ####[facility] (BEAKER)[address] [place] [address] PROTHROMBIN TIME (PT) IN PPP BY COAGULATION ASSAY 13.1 Seconds Normal 12.3-14.8 [facility] Comment on above: Performed By: #### L [id number] ####[facility] (BEAKER)[address] [place] [address] Letter (Out)on 10-11-2022 Letter (Out) [id number] Booker Thompson 1970 F Date Provider Department Center 10/11/2022 None-None [facility] [place] [facility] No family history on file Normal [facility] 36on 10-04-[address] Mi alex who would like patient's nephroureteral stent removed within the next week. Discussed and explained reasoning with patient. If pain recurs following removal, we can coordinate placement of a nephrostomy tube with radiology. Patient to come in for appt next week with me for removal. Dr. Almeida also would like her javi glabrata UTI treated - patient report malodorous and cloudy urine. Fluconazole prescribed. Normal [facility] Telephoneon 10-04-2022 Telephone [id number] Booker Thompsongretel Jyotsna 1970 F Date [facility] Department [facility] 10/04/2022 Mehrdad-NUBIA HYMAN [facility] No family history on file Normal [facility] 36on 09-27-2022 36 Left detailed voicem ail that patients surgery with Obi is scheduled 10/26/22 here is the main Normal [facility] APTTon 09-27-2022 ACTIVATED PARTIAL THROMBOPLASTIN TIME IN PPP BY COAGULATION ASSAY 28.0 Seconds Normal 25.0-35.0 [facility] Comment on above: Performed By: #### L [id number] ####[facility] (BEAKER)[address] [place] [address] BASIC METABOLIC PANELon 09-07 Anion gap [Moles/Vol] 12 mmol/L Normal 7-20 [facility] Comment on above: Performed By: #### L [id number] ####[facility] (BEAKER)[address] [place] [address] Calcium [Mass/Vol] 9.3 mg/dL Normal 8.6-10.3 [facility] Comment on above: Performed By: #### L [id number] ####[facility] ([facility])[address] [place] [address] Chloride [Moles/Vol] 104 mmol/L Normal 98-107 [facility] Comment on above: Performed By: #### L [id number] ####[facility] ([facility])[address] [place] [address] CO2 [Moles/Vol] 22 mmol/L Normal 21-31 [facility] Comment on above: Performed By: #### L [id number] ####[facility] ([facility])[address] [place] [address] Creatinine [Mass/Vol] 1.35 mg/dL High 0.60-1.20 [facility] Comment on above: Performed By: #### L [id number] ####[facility] ([facility])[address] [address] GLOMERULAR FILTRATION RATE ML/MIN/1.73 SQ M.PREDICTED 45.5 mL/min/1.73m*2 Low >60.0 [facility] Comment on above: Result Comment: [facility]???s estimated glomerular filtration rate (eGFR) will no longer include consideration of race in its calculation. The National Kidney Foundation???s eGFR Task Force developed new recommendations for the estimation of the glomerular filtration rate in the [place] They recommend immediate implementation of the new equation refit without the race variable in all laboratories because the calculation does not include race. In addition to not including race in the calculation and reporting, it included diversity in its development, and has acceptable performance characteristics and potential consequences that do not disproportionately affect any one group of individuals. Performed By: #### L [id number] ####[facility] ([facility])[address] [address] Glucose [Mass/Vol] 268 mg/dL High 70-100 [facility] Comment on above: Performed By: #### L [id number] ####[facility] ([facility])[address] [place] [address] Potassium [Moles/Vol] 4.7 mmol/L Normal 3.5-5.1 [facility] Comment on above: Performed By: #### L [id number] ####[facility] ([facility])[address] [place] [address] Sodium [Moles/Vol] 138 mmol/L Normal 136-145 [facility] Comment on above: Performed By: #### L [id number] ####[facility] ([facility])[address] [address] Urea nitrogen [Mass/Vol] 29 mg/dL High 7-25 [facility] Comment on above: Performed By: #### L [id number] ####[facility] ([facility])[address] [place] [address] UREA NITROGEN/CREATININE (MASS RATIO) IN SER/PLAS 21.48 Normal [facility] Comment on above: Performed By: #### L [id number] ####[facility] ([facility])[address] [address] CBC WITH AUTO DIFFERENTIALon 09-27-2022 Basophils (Bld) [#/Vol] 0.03 10*3/uL Normal 0.00-0.20 [facility] Comment on above: Performed By: #### L [id number] #### [facility] ([facility]) [address] [place] [address] Basophils/100 WBC (Bld) 0.4 % Normal 0.0-1.0 [facility] Comment on above: Performed By: #### L [id number] #### [facility] ([facility] [address] [place] [address] Eosinophils (Bld) [#/Vol] 0.20 10*3/uL Normal 0.00-0.50 [facility] Comment on above: Performed By: #### L [id number] #### [facility] ([facility] [address] [place] [address] Eosinophils/100 WBC (Bld) 2.9 % Normal 0.0-6.0 [facility] Comment on above: Performed By: #### L [id number] #### [facility] ([facility]) [address] [place] [address] ERYTHROCYTE DISTRIBUTION WIDTH (RATIO) STANDARD DEVIATION 37.1 Normal [facility] Comment on above: Performed By: #### L [id number] #### [facility] ([facility]) [address] [place] [address] Erythrocyte distribution width (RBC) [Ratio] 12.3 % Normal 11.5-15.0 [facility] Comment on above: Performed By: #### L [id number] #### [facility] ([facility]) [address] [place] [address] ERYTHROCYTE MEAN CORPUSCULAR HEMOGLOBIN CONCENTRATION (G/DL) BY AUTOMATED 33.0 g/dL Normal 32.0-35.0 [facility] Comment on above: Performed By: #### L [id number] #### [facility] ([facility]) [address] [place] [address] Hematocrit (Bld) [Volume fraction] 37.3 % Normal 36.0-48.0 [facility] Comment on above: Performed By: #### L [id number] #### [facility] ([facility]) [address] [place] [address] Hemoglobin (Bld) [Mass/Vol] 12.3 g/dL Normal 12.0-15.0 [facility] Comment on above: Performed By: #### L [id number] #### [facility] ([facility]) [address] [place] [place] [address] Immature granulocytes (Bld) [#/Vol] 0.03 10*3/uL Normal 0.00-0.20 [facility] Comment on above: Performed By: #### L [id number] #### [facility] ([facility] [address] [place] [place] [address] Immature granulocytes/100 WBC (Bld) 0.4 % Normal 0.0-1.0 [facility] Comment on above: Performed By: #### L [id number] #### [facility] ([facility]) [address] [place] [address] Lymphocytes (Bld) [#/Vol] 1.64 10*3/uL Normal 1.20-4.00 [facility] Comment on above: Performed By: #### L [id number] #### [facility] ([facility]) [address] [place] [address] Lymphocytes/100 WBC (Bld) 24.0 % Normal 20.0-45.0 [facility] Comment on above: Performed By: #### L [id number] #### [facility] ([facility]) [address] [place] [address] MCH (RBC) [Entitic mass] 27.4 pg Normal 27.0-33.0 [facility] Comment on above: Performed By: #### L [id number] #### [facility] ([facility]) [address] [place] [address] MCV (RBC) [Entitic vol] 83.1 fL Normal 82.0-98.0 [facility] Comment on above: Performed By: #### L [id number] #### [facility] ([facility]) [address] [place] [address] Monocytes (Bld) [#/Vol] 0.44 10*3/uL Normal 0.10-1.00 [facility] Comment on above: Performed By: #### L [id number] #### [facility] ([facility]) [address] [place] [address] Monocytes/100 WBC (Bld) 6.5 % Normal 5.0-12.0 [facility] Comment on above: Performed By: #### L [id number] #### [facility] ([facility] [address] [place] [address] Neutrophils (Bld) [#/Vol] 4.48 10*3/uL Normal 1.60-7.60 [facility] Comment on above: Performed By: #### L [id number] #### [facility] ([facility]) [address] [place] [address] Neutrophils/100 WBC (Bld) 65.8 % Normal 40.0-72.0 [facility] Comment on above: Performed By: #### L [id number] #### [facility] ([facility]) [address] [place] [address] NRBC (PER 100 WBCS) BY AUTOMATED COUNT 0.0 % Normal 0.0-0.0 [facility] Comment on above: Performed By: #### L [id number] #### [facility] ([facility]) [address] [place] [address] PLATELETS (10*3/UL) IN BLOOD AUTOMATED COUNT 412 10*3/uL High 150-400 [facility] Comment on above: Performed By: #### L [id number] #### [facility] ([facility]) [address] [place] [address] RBC (Bld) [#/Vol] 4.49 10*6/uL Normal 3.80-5.00 [facility] Comment on above: Performed By: #### L [id number] #### [facility] ([facility]) [address] [place] [address] WBC (Bld) [#/Vol] 6.82 10*3/uL Normal 4.00-10.60 [facility] Comment on above: Performed By: #### L [id number] #### [facility] ([facility]) [address] [place] [address] Follow-Upon 09-27-2022 Follow-Up [id number] Booker Thompson 1970 F Date Provider Department Center 09/27/2022 3561-NUBIA HYMAN [facility] Fl No family history on file Level of Service:41133 NE OFFICE/OUTPATIENT ESTABLISHED HIGH MDM 40-54 MIN Normal [facility] PROTIME-INRon 09-27-2022 INR IN PPP BY COAGULATION ASSAY 0.93 Normal 0.90-1.10 [facility] Comment on above: Result Comment: [facility] P RECOMMENDED INR FOR WARFARIN THERAPY CONDITION INR PROPHYLAXIS OF VENOUS THROMBOSIS 2-3 (HIGH-RISK SURGERY) TREATMENT OF VENOUS THROMBOSIS 2-3 TREATMENT OF PULMONARY EMBOLISM 2-3 PREVENTION OF SYSTEMIC EMBOLISM: 2-3 ACUTE MYOCARDIAL INFARCTION TISSUE HEART VALVES VALVULAR HEART DISEASE ATRIAL FIBRILLATION RECURRENT SYSTEMIC EMBOLISM MECHANICAL HEART VALVE 2.5-3.5 FROM: ORAL ANTICOAGULANTS. MECHANISM OF ACTION, CLINICAL EFFECTIVENESS, AND OPTIMAL THERAPEUTIC RANGE. CHEST 1995;108:231S-246S. Performed By: #### L [id number] ####[facility] ([employer])[address] [place] [address] PROTHROMBIN TIME (PT) IN PPP BY COAGULATION ASSAY 12.5 Seconds Normal 12.3-14.8 [facility] Comment on above: Performed By: #### L [id number] ####[facility] ([facility])[address] [place] [address] URINE CULTURE, ROUTINEon Bacteria identified Cx Nom (U) JAVI GLABRATA Abnormal [facility] Comment on above: Result Comment: 50,0 00 - 100,000 CFU/Ml Javi glabrata Performed By: #### L [id number] #### [facility] ([facility]) [address] [place] [address] CT ABDOMEN PELVIS WO IV CONT RASTon 09-22-2022 CT ABDOMEN PELVIS WO IV CONTRAST CT ABDOMEN PELVIS WO IV CONTRAST 09/22/2022 3:44 PM CLINICAL INDICATIONS: Staghorn renal calculus. TECHNIQUE: Multidetector CT axial slices of the abdomen and pelvis were obtained without IV contrast. All CT scans at this facility use dose modulation, iterative reconstruction, and/or weight based dosing when appropriate to reduce radiation dose to as low as reasonably achievable COMPARISON: None. FINDINGS: Moderate multivessel coronary artery calcification. Heart appears nonenlarged. Single 4 mm nodule right anterior lung base, which requires no dedicated follow-up. The liver, gallbladder, spleen, pancreas, and adrenal glands appear unremarkable. Right kidney and ureter appear unremarkable. Left kidney contains percutaneous nephrostomy ureteral drain which traverses the left ureter and terminates within the urinary bladder. There are multiple large left-sided renal calculi measuring approximately 1.5 cm. No hydronephrosis bilaterally. The uterus is surgically absent. Small and large bowel loops appear unremarkable. Appendix is not definitively visualized. Nonaneurysmal abdominal aorta with moderate atherosclerotic involvement. No abdominopelvic lymphadenopathy. Lucency within L1 vertebral body likely represents simple cyst. Lower lumbar facet joint disease. Lower thoracic bony spurring suggesting mild spondylosis IMPRESSION: Multiple large left-sided renal calculi with left-sided percutaneous nephrostomy/ureteral drainage catheter in place. Approved by:Ambrose Juarez09/23/2022 8:01 AM. I, Carlos Sue,have reviewed the image(s) and agree with the findings in this report. Electronically signed: Carlos Sue. Normal [facility] CULTURE URINEon 09-12-2022 CULTURE URINE Culture Observations : LIGHT GROWTH OF MIXED GENITAL JOSE. NO POTENTIAL PATHOGENS SEEN. Normal [facility] Comment on above: Performed By: #### L IPA, DLDL, CON, LIPID, T7, CMP, TSH #### [facility] [address] [address] [address] Delmer eRa URINE MICROSCOPIC ONLYon BACTERIA MODERATE Abnormal NONE SEEN [facility] Comment on above: Performed By: #### L IPA, DLDL, CON, LIPID, T7, CMP, TSH #### [facility] [address] [address] [address] Delmer Rea Bacteria identified Cx Nom (U) CX ALREADY ORDERED Normal [facility] Comment on above: Performed By: #### L IPA, DLDL, CON, LIPID, T7, CMP, TSH #### [facility] [address] [address] [address] Delmer Rea CAST NONE SEEN Normal NONE SEEN [facility] Comment on above: Performed By: #### L IPA, DLDL, CON, LIPID, T7, CMP, TSH #### [facility] [address] [place] [address] Dr. Delmer Rea Crystals LM Nom (Urine sed) NONE SEEN Normal NONE SEEN [facility] Comment on above: Performed By: #### L IPA, DLDL, CON, LIPID, T7, CMP, TSH #### [facility] [address] [place] [address] [address] Delmer Rea Epithelial cells LM Ql (Urine sed) FEW Abnormal NONE SEEN /RARE [facility] Comment on above: Performed By: #### L IPA, DLDL, CON, LIPID, T7, CMP, TSH #### [facility] [address] [place] [address] [address] Delmer Rea MUCOUS NONE SEEN Normal NONE SEEN [facility] Comment on above: Performed By: #### L IPA, DLDL, CON, LIPID, T7, CMP, TSH #### [facility] [address] [place] [address] [address] Delmer Rea RBC 5-10 Abnormal 0-2 [facility] Comment on above: Performed By: #### L IPA, DLDL, CON, LIPID, T7, CMP, TSH #### [facility] [address] [place] [address] [address] Delmer Rea WBC (U) [#/Vol] /uL Abnormal NONE SEEN [facility] Comment on above: Performed By: #### L IPA, DLDL, CON, LIPID, T7, CMP, TSH #### [facility] [address] [place] [address] [address] Delmer Rea YEAST PRESENT Abnormal NONE SEEN [facility] Comment on above: Performed By: #### L IPA, DLDL, CON, LIPID, T7, CMP, TSH #### [facility] [address] [place] [address] [address] Delmer Rea Follow-Upon 08-18-2022 Follow-Up [id number] Booker Thompson 1970 F Date Provider Department Center 08/18/2022 Karen-CASTILLO [facility] No family history on file Level of Service:07359 NE OFFICE/OUTPATIENT ESTABLISHED HIGH MDM 40-54 MIN Reason for Visit and Comments: Urolithiasis [539] - Patient reports she has no new symptoms wants stone removed. Normal [facility] Follow-Upon 08-17-2022 Follow-Up [id number] Booker Thompson Jyotsna 1970 F Date Provider Department Center 08/17/2022 384Ananth-LUTHER TESFAYE [facility] No family history on file Level of Service:21193 NE OFFICE/OUTPATIENT NEW MODERATE MDM 45-59 MINUTES Reason for Visit and Comments: Nephrolithiasis [709808] - Patient states she has a neph tube because she has a kidney stone that is causing hyronephrosis. Patient would like the tube removed and her kidney stone removed. Normal [facility] NM KIDNEY W FLOW AND FUNCTIO N W PHARMACOLOGICAL INTERVENTIONon 08-05-2022 NM KIDNEY W FLOW AND FUNCTION W PHARMACOLOGICAL INTERVENTION EXAMINATION: NUCLEAR MEDICINE RENAL SCAN 08/05/2022 TECHNIQUE: Following hydration, 7.1 mCi of Tc-99m-MAG3 was administered intravenously. 40 mg of lasix was administered at approximately 20 mins. Dynamic flow and standard sequential images of the kidneys were acquired in posterior projection. Renograms of kidneys and cortices were generated and analyzed. COMPARISON: CT abdomen pelvis dated 07/18/2022 HISTORY: ORDERING SYSTEM PROVIDED HISTORY: Left renal atrophy TECHNOLOGIST PROVIDED HISTORY: patient has complete left staghorn calculus with atrophic left kidney, will need to assess renal function for surgical planning purposes - either stone treatment or nephrectomy Is the patient ?->No Reason for Exam: lt renal atrophy FINDINGS: In the flow phase, greater activity is seen within the right kidney than the left kidney. Progressive increased activity is seen within each kidney during the flow phase. Immediate static image demonstrates activity within bilateral kidneys, right greater than left. Split differential function is calculated at approximately 86% right kidney, 14% left kidney. Left kidney demonstrates a low-amplitude slowly down-sloping time activity curve. Activity is seen within left nephrostomy tube as well as within the left ureter. Residual activity is seen within the left kidney at the end of the exam, greatest at the upper pole. Right kidney excretes both before and after Lasix administration. IMPRESSION: Left kidney is small and poorly functioning relative to the right kidney. Split differential function is calculated at approximately 14% left kidney, 86% right kidney. Activity is seen within both left nephrostomy tube and left ureter during the exam. No evidence of high-grade obstruction of the right kidney. Interpreted by: Akil Cummings MD Signed by: Akil Cummings MD 08/05/22 Final result Normal [facility] APTTon 07-26-2022 aPTT Coag (Bld) [Time] 23.4 s Normal 20.5-30.5 [facility] Comment on above: Result Comment: IV Heparin Therapy Range: 48.6-77.8 Performed By: #### A NAX, IFX, PHEP, FKLLC, PE #### [facility] [address] [place] [address] [employer]: Bala Skelton MD aPTT Coag (Bld) [Time] 23.4 s [facility] Comment on above: IV Heparin Therapy Range: 48.6-77.8 CBC with Auto Differentialon 07-26-2022 Absolute Eos # 0.29 [place] [facility] Absolute Immature Granulocyte 0.09 [facility] Absolute Lymph # 2.26 [facility] SECO URS [facility] Absolute [place] # 0.65 [facility] Basophils (Bld) [#/Vol] 0.04 10*3/uL [facility] Basophils/100 WBC (Bld) 1 % 0 - 2 % [facility] Eosinophils/100 WBC (Bld) 4 % 1 - 4 % [facility] Hematocrit (Bld) [Volume fraction] 29.5 % Low 36.3 - 47.1 % [facility] Hemoglobin (Bld) [Mass/Vol] 10.1 g/dL Low 11.9 - 15.1 g/dL [facility] Immature granulocytes/100 WBC (Bld) 1 % High 0 [facility] Interpretation and review of laboratory results Abnormal [facility] Lymphocytes/100 WBC (Bld) 27 % 24 - 43 % [facility] MCH (RBC) [Entitic mass] 29.3 pg 25.2 - 33.5 pg [facility] MCHC (RBC) [Mass/Vol] 34.2 g/dL 28.4 - 34.8 g/dL [facility] MCV (RBC) [Entitic vol] 85.5 fL 82.6 - 102.9 fL [facility] Monocytes/100 WBC (Bld) 8 % 3 - 12 % [facility] NRBC Automated 0.0 0.0 per 100 WBC [facility] Platelet distribution width (Bld) [Ratio] 13.4 % 11.8 - 14.4 % [facility] Platelet mean volume (Bld) [Entitic vol] 9.5 fL 8.1 - 13.5 fL [facility] Platelets (Bld) [#/Vol] 311 10*3/uL [facility] RBC (Bld) [#/Vol] 3.45 10*6/uL Low 3.95 - 5.1 1 m/uL [facility] Segmented neutrophils/100 WBC (Bld) 59 % 36 - 65 % [facility] Segs Absolute 5.00 [facility] WBC (Bld) [#/Vol] 8.3 10*3/uL [facility] CBC with Diffon 07-26-2022 Abs. Basophil 0.04 k/uL Normal 0.00-0.20 [facility] Comment on above: Performed By: #### A NAX, IFX, PHEP, FKLLC, PE #### [facility] [address] [place], [place] [phone] [employer]: Bala Skelton MD Abs.Imm.Granulocyte 0.09 k/uL Normal 0.00-0.30 [facility] Comment on above: Performed By: #### A NAX, IFX, PHEP, FKLLC, PE #### [facility] [address] [place], [place] [phone] [employer]: Bala Skelton MD Abs.Neutrophil (Seg) 5.00 k/uL Normal 1.50-8.10 [facility] Comment on above: Performed By: #### A NAX, IFX, PHEP, FKLLC, PE #### [address] [address] [employer]: Bala Skelton MD Basophils/100 WBC (Bld) 1 % Normal 0-2 [facility] Comment on above: Performed By: #### A NAX, IFX, PHEP, FKLLC, PE #### [address] [address] [employer]: Bala Skelton MD Eosinophils (Bld) [#/Vol] 0.29 10*3/uL Normal 0.00-0.44 [facility] Comment on above: Performed By: #### A NAX, IFX, PHEP, FKLLC, PE #### [place] [address] [employer]: Bala Skelton MD Eosinophils/100 WBC (Bld) 4 % Normal 1-4 [facility] Comment on above: Performed By: #### A NAX, IFX, PHEP, FKLLC, PE #### [address] [address] [employer]: Bala Skelton MD Erythrocyte distribution width (RBC) [Ratio] 13.4 % Normal 11.8-14.4 [facility] Comment on above: Performed By: #### A NAX, IFX, PHEP, FKLLC, PE #### [address] [address] [employer]: Bala Skelton MD Hematocrit (Bld) [Volume fraction] 29.5 % Low 36.3-47.1 [facility] Comment on above: Performed By: #### A NAX, IFX, PHEP, FKLLC, PE #### [address] [address] [employer]: Bala Skelton MD Hemoglobin (Bld) [Mass/Vol] 10.1 g/dL Low 11.9-15.1 [facility] Comment on above: Performed By: #### A NAX, IFX, PHEP, FKLLC, PE #### [address] [address] [employer]: Bala Skelton MD Immature granulocytes/100 WBC (Bld) 1 % High 0 [facility] Comment on above: Performed By: #### A NAX, IFX, PHEP, FKLLC, PE #### [address] [address] [employer]: Bala Skelton MD Lymphocytes (Bld) [#/Vol] 2.26 10*3/uL Normal 1.10-3.70 [facility] Comment on above: Performed By: #### A NAX, IFX, PHEP, FKLLC, PE #### [address] [address] [employer]: Bala Skelton MD Lymphocytes/100 WBC (Bld) 27 % Normal 24-43 [facility] Comment on above: Performed By: #### A NAX, IFX, PHEP, FKLLC, PE #### [address] [address] [employer]: Bala Skelton MD MCH (RBC) [Entitic mass] 29.3 pg Normal 25.2-33.5 [facility] Comment on above: Performed By: #### A NAX, IFX, PHEP, FKLLC, PE #### [address] [address] [employer]: Bala Skelton MD MCHC (RBC) [Mass/Vol] 34.2 g/dL Normal 28.4-34.8 [facility] Comment on above: Performed By: #### A NAX, IFX, PHEP, FKLLC, PE #### [address] [address] [employer]: Bala Skelton MD MCV (RBC) [Entitic vol] 85.5 fL Normal 82.6-102.9 [facility] Comment on above: Performed By: #### A NAX, IFX, PHEP, FKLLC, PE #### [address] [address] [employer]: Bala Skelton MD Monocytes (Bld) [#/Vol] 0.65 10*3/uL Normal 0.10-1.20 [facility] Comment on above: Performed By: #### A NAX, IFX, PHEP, FKLLC, PE #### [address] [address] [employer]: Bala Skelton MD Monocytes/100 WBC (Bld) 8 % Normal 3-12 [facility] Comment on above: Performed By: #### A NAX, IFX, PHEP, FKLLC, PE #### [address] [address] [employer]: Bala Skelton MD Neutrophil (Seg) 59 % Normal 36-65 [facility] Comment on above: Performed By: #### A NAX, IFX, PHEP, FKLLC, PE #### [address] [address] [employer]: Bala Skelton MD NRBC Automated 0.0 per 100 WBC Normal 0.0 [facility] Comment on above: Performed By: #### A NAX, IFX, PHEP, FKLLC, PE #### [address] [address] [employer]: Bala Skelton MD Platelet mean volume (Bld) [Entitic vol] 9.5 fL Normal 8.1-13.5 [facility] Comment on above: Performed By: #### A NAX, IFX, PHEP, FKLLC, PE #### [facility] [address] [place] [phone] Director [employer]: Bala Skelton MD Platelets (Bld) [#/Vol] 311 10*3/uL Normal 138-453 [facility] Comment on above: Performed By: #### A NAX, IFX, PHEP, FKLLC, PE #### [facility] [address] [place] [phone] [employer]: Bala Skelton MD RBC (Bld) [#/Vol] 3.45 10*6/uL Low 3.95-5.11 [facility] Comment on above: Performed By: #### A NAX, IFX, PHEP, FKLLC, PE #### [facility] [address] [place] [phone] [employer]: Bala Skelton MD WBC (Bld) [#/Vol] 8.3 10*3/uL Normal 3.5-11.3 [facility] Comment on above: Performed By: #### A NAX, IFX, PHEP, FKLLC, PE #### [address] [address] [employer]: Bala Skelton MD IR GUIDED NEPHROURETERAL CAT H REMOVE/REPLACEon 07-26-2022 1. Successful left nephroureteral stent exchange. [facility] Bishnu Wright MD - 07/26/2022 PROCEDURE: IR CHG NEPHROSTMY CATH PROC 07/26/2022 HISTORY: ORDERING SYSTEM PROVIDED HISTORY: Left nephroureteral stent dysfunction, caught stent on appliance resulting in breaking the stent TECHNOLOGIST PROVIDED HISTORY: nephroureteral exchange Is the patient ?->No CONTRAST: 20 mL Isovue 370 SEDATION: Local anesthesia FLUOROSCOPY DOSE AND TYPE OR TIME AND EXPOSURES: Fluoro time: 7.1 minutes; dap: 3087 cGy per cm2 Number of images: 6 TECHNIQUE/DESCRIPTION OF PROCEDURE: Informed consent was obtained after a detailed explanation of the procedure including risks. [place] protocol was observed. Sterile gowns, masks, hats and gloves utilized for maximal sterile barrier. The patient was placed in the prone position on the fluoroscopy table, and the existing left nephroureteral stent and flank were prepped and draped in sterile manner. The stent tubing was noted to be broken with the lumen exposed near the level of the skin. A band log mill and carriage operator image demonstrated the distal loop approximating the expected position of the urinary bladder, and the proximal loop unformed. Injection of the left nephroureteral stent using a blunt 18 gauge needle through this defect with contrast demonstrated filling of the renal portion of the collecting system. A 0.035 inch Amplatz wire was inserted through the stent into the urinary bladder. The existing stent was removed over the wire. Under fluoroscopic guidance, a new 8 Niuean x 22 cm nephroureteral stent was advanced over the wire; the distal loop formed in the bladder, but the proximal loop did not form in the renal pelvis. Therefore, this catheter was removed over wire, and a new 8 Niuean x 24 cm nephroureteral stent was advanced over the wire. The distal loop formed in the expected position of the bladder, and the proximal loop partially formed in the renal pelvis. Contrast injection confirmed appropriate positioning. The stent was then attached to the skin with a 2-0 monofilament suture. The patient tolerated the procedure well. COMPLICATIONS: None immediately apparent IMPRESSION: 1. Successful left nephroureteral stent exchange. [employer] Work Phone: Radiology Study observation (narrative) [employer] Work Phone: IR GUIDED NEPHROURETERAL CAT H REMOVE/REPLACEOrdered By: Bishnu Alan on 07-26-2022 [employer] Work Phone: No Panel Informationon 07-26 [facility] [employer] POC Glucose Fingerstickon Glucose [Mass/Vol] 185 mg/dL High 65 - 105 mg/dL [facility] [employer] Interpretation and review of laboratory results Abnormal [facility] PTon 07-26-2022 INR Coag (PPP) [Relative time] 0.9 {INR} Normal [facility] Comment on above: Result Comment: Therapeutic Range: Moderate Anticoagulant Intensity: INR = 2.0-3.0 High Anticoagulant Intensity: INR = 2.5-3.5 Performed By: #### A NAX, IFX, PHEP, FKLLC, PE #### [facility] [address] [place] [phone] [employer]: Bala Skelton MD PT Coag (PPP) [Time] 9.4 s Normal 9.1-12.3 [facility] Comment on above: Performed By: #### A NAX, IFX, PHEP, FKLLC, PE #### [facility] [address] [place] [phone] [employer]: Bala Skelton MD Protime-INRon 07-26-2022 INR Coag (Bld) [Relative time] 0.9 {INR} [facility] Comment on above: Therapeutic Range: Moderate Anticoagulant Intensity: INR = 2.0-3.0 High Anticoagulant Intensity: INR = 2.5-3.5 PT Coag (PPP) [Time] 9.4 s [facility] Cult, Bloodon 07-25-2022 Cult, Blood Specimen Description .BLOOD Special Requests LEFT FOREARM 5ML Culture NO GROWTH 5 DAYS Report Status FINAL 07/25/2022 [facility] Comment on above: Performed By: #### B C #### [facility] [address] [place] [phone] [employer]: Bala Skelton MD Cult,Bloodon 07-25-2022 Cult,Blood Specimen Description .BLOOD Special Requests LT WRIST 2.5ML Culture NO GROWTH 5 DAYS Report Status FINAL 07/25/2022 [facility] Comment on above: Performed By: #### B C #### [facility] [address] [place] [phone] [employer]: Bala Skelton MD Cult,Blood Specimen Description .BLOOD Special Requests RT WRIST 2.5ML Culture NO GROWTH 5 DAYS Report Status FINAL 07/25/2022 Normal [facility] Comment on above: Performed By: #### A NAX, IFX, PHEP, FKLLC, PE #### [facility] [address] [place], [place] [phone] Director [employer]: Bala Skelton MD Cult,Blood Specimen Description .BLOOD Special Requests 2ML Culture NO GROWTH 5 DAYS Report Status FINAL 07/25/2022 Normal [facility] Comment on above: Performed By: #### A NAX, IFX, PHEP, FKLLC, PE #### [facility] [address] [place], [place] [phone] [employer]: Bala Skelton MD XR ABDOMEN (KUB) (SINGLE AP VIEW)on 07-25-2022 XR ABDOMEN (KUB) (SINGLE AP VIEW) EXAMINATION: ONE SUPINE XRAY VIEW(S) OF THE ABDOMEN 07/25/2022 7:16 pm COMPARISON: 07/18/2022 HISTORY: ORDERING SYSTEM PROVIDED HISTORY: evaluate nephrostomy tube placement TECHNOLOGIST PROVIDED HISTORY: evaluate nephrostomy tube placement Reason for Exam: nephrostomy tube placed 6 days ago,tube pulled today accidentally,now leaking FINDINGS: Paucity of bowel gas throughout the abdomen. Left PCNU in place. There is questionable discontinuity of the retroperitoneal or body wall portion of the catheter. No gross bony abnormality. IMPRESSION: Left PCNU in place. There is questionable discontinuity of the retroperitoneal or body wall portion of the catheter. This may be artifactual related to bowel gas. Recommend repeat exam or CT. Interpreted by: Bry Foreman MD Signed by: Bry Foreman MD 07/25/22 Final result Normal [facility] Left PCNU in place. There is questionable discontinuity of the retroperitoneal or body wall portion of the catheter. This may be artifactual related to bowel gas. Recommend repeat exam or CT. [facility] RIS CONSOLIDATED EXAMINATION: ONE SUPINE XRAY VIEW(S) OF THE ABDOMEN 07/25/2022 7:16 pm COMPARISON: 07/18/2022 HISTORY: ORDERING SYSTEM PROVIDED HISTORY: evaluate nephrostomy tube placement TECHNOLOGIST PROVIDED HISTORY: evaluate nephrostomy tube placement Reason for Exam: nephrostomy tube placed 6 days ago,tube pulled today accidentally,now leaking FINDINGS: Paucity of bowel gas throughout the abdomen. Left PCNU in place. There is questionable discontinuity of the retroperitoneal or body wall portion of the catheter. No gross bony abnormality. [facility] RIS CONSOLIDATED Bry Foreman MD - 07/25/2022 EXAMINATION: ONE SUPINE XRAY VIEW(S) OF THE ABDOMEN 07/25/2022 7:16 pm COMPARISON: 07/18/2022 HISTORY: ORDERING SYSTEM PROVIDED HISTORY: evaluate nephrostomy tube placement TECHNOLOGIST PROVIDED HISTORY: evaluate nephrostomy tube placement Reason for Exam: nephrostomy tube placed 6 days ago,tube pulled today accidentally,now leaking FINDINGS: Paucity of bowel gas throughout the abdomen. Left PCNU in place. There is questionable discontinuity of the retroperitoneal or body wall portion of the catheter. No gross bony abnormality. IMPRESSION: Left PCNU in place. There is questionable discontinuity of the retroperitoneal or body wall portion of the catheter. This may be artifactual related to bowel gas. Recommend repeat exam or CT. [employer] Phone: Radiology Study observation (narrative) [employer] Phone: XR ABDOMEN (KUB) (SINGLE AP VIEW)Ordered By: Bry Foreman on 07-25-2022 [employer] Phone: Cult,Bloodon 07-23-2022 Cult,Blood Specimen Description .BLOOD Special Requests R FOREARM 10 ML Culture NO GROWTH 5 DAYS Report Status FINAL 07/23/2022 Normal [facility] Comment on above: Performed By: #### A NAX, IFX, PHEP, FKLLC, PE #### [facility] [address] [place] [phone] [employer]: Bala Skelton MD Cult,Blood Specimen Description .BLOOD Special Requests L WRIST 10 ML Culture NO GROWTH 5 DAYS Report Status FINAL 07/23/2022 Normal [facility] Comment on above: Performed By: #### L ACTIC #### [facility] [address] [place] [address] [phone] [employer]: Bala Skelton MD ALEXANDRE Screen w/reflexon 2021 ALEXANDRE Screen Negative Normal NEG [facility] Comment on above: Performed By: #### A NAX, IFX, PHEP, FKLLC, PE #### [facility] [address] [place] [phone] [employer]: Bala Skelton MD Anti-dsDNA 2.1 IU/mL Normal <10.0 [facility] Comment on above: Result Comment: Reference Range: <10.0 Negative 10.0-15.0 Equivocal >15.0 Positive Performed By: #### A NAX, IFX, PHEP, FKLLC, PE #### [facility] [address] [place] [address] [phone] [employer]: Bala Skelton MD MICKIE Screen 0.1 U/mL Normal <0.7 [facility] Comment on above: Result Comment: Reference Range: <0.7 Negative 0.7-1.0 Equivocal >1.0 Positive MICKIE Screen includes U1RNP,RNP70,Sm,Ro(SS-A),La(SS-B),CENP,Scl-70,Gina-1 Performed By: #### A NAX, IFX, PHEP, FKLLC, PE #### [address] [phone] [employer]: Bala Skelton MD ALEXANDRE Screen with Reflexon Anti ds DNA 2.1 NINF [facility] Comment on above: Reference Range: <10.0 Negative 10.0-15.0 Equivocal >15.0 Positive MICKIE Antibodies Screen 0.1 U/mL NINF - 0.7 U/mL [facility] Comment on above: Reference Range: <0.7 Negative 0.7-1.0 Equivocal >1.0 Positive MICKIE Screen includes U1RNP,RNP70,Sm,Ro(SS-A),La(SS-B),CENP,Scl-70,Gina-1 Nuclear Ab IF (S) [Titer] Negative NEGATIVE [facility] Basic Metab w/rfx MGon 07-22 (cont.) Normal [facility] Comment on above: Result Comment: Aver age GFR for 50-59 years old: 93 mL/min/1.73sq m Chronic Kidney Disease: <60 mL/min/1.73sq m Kidney failure: <15 mL/min/1.73sq m eGFR calculated using average adult body mass. Additional eGFR calculator available at: http://www.[employer]/multiple_crcl_2012.htm Performed By: #### A NAX, IFX, PHEP, FKLLC, PE #### [facility] [address] [place] [address] [phone] [employer]: Bala Skelton MD Anion gap [Moles/Vol] 12 mmol/L Normal 9-17 [facility] Comment on above: Performed By: #### A NAX, IFX, PHEP, FKLLC, PE #### [facility] [address] [place] [phone] [employer]: Bala Skelton MD Calcium [Mass/Vol] 8.5 mg/dL Low 8.6-10.4 [facility] Comment on above: Performed By: #### A NAX, IFX, PHEP, FKLLC, PE #### [facility] [address] [place] [phone] [employer]: Bala Skelton MD Chloride [Moles/Vol] 101 mmol/L Normal 98-107 [facility] Comment on above: Performed By: #### A NAX, IFX, PHEP, FKLLC, PE #### [facility] [address] [place] [address] [phone] [employer]: Bala Skelton MD CO2 [Moles/Vol] 25 mmol/L Normal 20-31 [facility] Comment on above: Performed By: #### A NAX, IFX, PHEP, FKLLC, PE #### [address] [address] [employer]: Bala Skelton MD Creatinine [Mass/Vol] 1.06 mg/dL High 0.50-0.90 [facility] Comment on above: Performed By: #### A NAX, IFX, PHEP, FKLLC, PE #### [address] [address] [employer]: Bala Skelton MD GFR, Amer >60 Normal >60 [facility] Comment on above: Performed By: #### A NAX, IFX, PHEP, FKLLC, PE #### [address] [phone] [employer]: Bala Skelton MD GFR,non Amer 55 mL/min Low >60 [facility] Comment on above: Performed By: #### A NAX, IFX, PHEP, FKLLC, PE #### [address] [address] [employer]: Bala Skelton MD Glucose [Mass/Vol] 172 mg/dL High 70-99 [facility] Comment on above: Performed By: #### A NAX, IFX, PHEP, FKLLC, PE #### [address] [address] [employer]: Bala Skelton MD Potassium [Moles/Vol] 4.1 mmol/L Normal 3.7-5.3 [facility] Comment on above: Performed By: #### A NAX, IFX, PHEP, FKLLC, PE #### [address] [address] [employer]: Bala Skelton MD Sodium [Moles/Vol] 138 mmol/L Normal 135-144 [facility] Comment on above: Performed By: #### A NAX, IFX, PHEP, FKLLC, PE #### [facility] [address] [place], [place] [phone] [employer]: Bala Skelton MD Urea nitrogen [Mass/Vol] 24 mg/dL High 6-20 [facility] Comment on above: Performed By: #### A NAX, IFX, PHEP, FKLLC, PE #### [facility] [address] [place], [place] [phone] [employer]: Bala Skelton MD Basic Metabolic Panel w/ Ref romulo to [facility] 07-22-2022 Anion gap [Moles/Vol] 12 mmol/L 9 - 17 mmol/L [facility] Calcium [Mass/Vol] 8.5 mg/dL Low 8.6 - 10. 4 mg/dL [facility] Chloride [Moles/Vol] 101 mmol/L 98 - 107 mmol/L [facility] CO2 [Moles/Vol] 25 mmol/L 20 - 31 mmol/L [facility] Creatinine [Mass/Vol] 1.06 mg/dL High 0.5 - 0.9 mg/dL [facility] GFR >60 60 - PINF mL/min [facility] GFR Non- 55 mL/min Low 60 - PINF mL/min [facility] GFR/1.73 sq M.predicted MDRD (S/P/Bld) [Vol rate/Area] [facility] Comment on above: Average GFR for 50-5 9 years old: 93 mL/min/1.73sq m Chronic Kidney Disease: <60 mL/min/1.73sq m Kidney failure: <15 mL/min/1.73sq m eGFR calculated using average adult body mass. Additional eGFR calculator available at: http://www.IndaBox.[facility]/multiple_crcl_2012.htm Glucose [Mass/Vol] 172 mg/dL High 70 - 99 mg/dL [facility] Interpretation and review of laboratory results Abnormal [facility] Potassium [Moles/Vol] 4.1 mmol/L 3.7 - 5.3 mmol/L [facility] Sodium [Moles/Vol] 138 mmol/L 135 - 144 mmol/L [facility] Urea nitrogen (BldV) [Mass/Vol] 24 mg/dL High 6 - 20 mg/dL [facility] Electrophoresis Protein, Ser umon 07-22-2022 Albumin % 57 % 45 - 65 % [facility] Albumin [Mass/Vol] 3.6 g/dL 3.2 - 5.2 g/dL [facility] Alpha 1 % 4 % 3 - 6 % [facility] Alpha 2 % 15 % High 6 - 13 % [facility] Zxidl-5-Nbyimjtn 0.2 g/dL 0.1 - 0.4 g/dL [facility] Ndrge-6-Macjnloc 0.9 g/dL 0.5 - 0.9 g/dL [facility] Beta Globulin 0.9 g/dL 0.5 - 1.1 g/dL [facility] Beta Percent 14 % 11 - 19 % [facility] Free PSA/Total PSA [Mass fraction] 6.3 g/dL Low 6.4 - 8.3 g/dL [facility] Gamma Globulin 0.6 g/dL 0.5 - 1.5 g/dL [facility] Gamma Globulin % 10 % 9 - 20 % [facility] Interpretation and review of laboratory results Abnormal [facility] Pathologist Cyto stain Nom (Cvx/Vag) [ID] Reviewed by pathologist: Mary Stovall M.D. [facility] Protein Electrophoresis, Serum NORMAL ELECTROPHORETIC PATTERN [facility] Comment on above: IMMUNOFIXATION IS NE GATIVE FOR MONOCLONAL IMMUNOGLOBULIN. Total Prot. Sum 6.2 g/dL Low 6.3 - 8.2 g/dL [facility] Total Prot. Sum,% 100 % 98 - 102 % [facility] Hepatitis Acute [facility] 07-22 Hep A Ab,IgM Non-Reactive Normal [facility] Comment on above: Performed By: #### A NAX, IFX, PHEP, FKLLC, PE #### [facility] [address] [place] [phone] [employer]: Bala Skelton MD Hep B Core Ab,IgM Non-Reactive Normal [facility] Comment on above: Performed By: #### A NAX, IFX, PHEP, FKLLC, PE #### [facility] [address] [place] [address] [phone] [employer]: Bala Skelton MD Hep B Surf Ag Non-Reactive Normal [facility] Comment on above: Performed By: #### A NAX, IFX, PHEP, FKLLC, PE #### [facility] [address] [place] [phone] [employer]: Bala Skelton MD Hep C Ab Non-Reactive Normal [facility] Comment on above: Result Comment: The hepatitis C procedure used in our laboratory is a Chemiluminescent test specific for three recombinant HCV antigens. A negative anti-HCV result indicates that the antibodies to hepatitis C virus are not present at this time. Individuals with reactive anti-HCV should be considered infected and infectious until proven otherwise. Confirmation of all equivocal or reactive results is recommended by ordering HCV RNA by PCR. Performed By: #### A NAX, IFX, PHEP, FKLLC, PE #### [address] [address] [employer]: Bala Skelton MD Hepatitis Panel, [facility] HAV IgM IA Qn (S) Non-Reactive NONREACTIVE [facility] Hep B Core Ab, IgM Non-Reactive NONREACTIVE [facility] Hepatitis B Surface Ag Non-Reactive NONREACTIVE [facility] Hepatitis C Ab Non-Reactive [facility]ACTIVE [facility] Comment on above: The hepatitis C procedure used in our laboratory is a Chemiluminescent test specific for three recombinant HCV antigens. A negative anti-HCV result indicates that the antibodies to hepatitis C virus are not present at this time. Individuals with reactive anti-HCV should be considered infected and infectious until proven otherwise. Confirmation of all equivocal or reactive results is recommended by ordering HCV RNA by PCR. [facility] Immunofixation serum profile on 07-22-2022 Pathologist Cyto stain Nom (Cvx/Vag) [ID] Reviewed by pathologist: Mary Stovall M.D. [facility] Serum IFX Interp IMMUNOFIXATION IS NEGATIVE FOR MONOCLONAL IMMUNOGLOBULIN. [facility] Immunofixation urine random profileon 07-22-2022 Protein (U) [Mass/Vol] 144 mg/dL [facility] Urine IFX Interp IMMUNOFIXATION IS NEGATIVE FOR MONOCLONAL IMMUNOGLOBULIN. [facility] Urine IFX Specimen .URINE [facility] Immunofixation,Bloodon 07-22 IFX - Interpret. IMMUNOFIXATION IS NEGATIVE FOR MONOCLONAL IMMUNOGLOBULIN. [facility] Comment on above: Performed By: #### A NAX, IFX, PHEP, FKLLC, PE #### [facility] [address] [place] [address] [phone] [employer]: Bala Skelton MD Pathologist Review: Reviewed by patholog ist: Mary Stovall M.D. [facility] Comment on above: Performed By: #### A NAX, IFX, PHEP, FKLLC, PE #### [facility] [address] [place] [address] [phone] [employer]: Bala Skelton MD Immunofixation,Urineon 07-22 Ur. IFX-Interpret IMMUNOFIXATION IS NEGATIVE FOR MONOCLONAL IMMUNOGLOBULIN. [facility] Comment on above: Performed By: #### A NAX, IFX, PHEP, FKLLC, PE #### [facility] [address] [place] [phone] [employer]: Bala Skelton MD Lactic Acidon 07-22-2022 Lactic Acid,Whole Bl 1.9 mmol/L Normal 0.7-2.1 [facility] Comment on above: Performed By: #### A NAX, IFX, PHEP, FKLLC, PE #### [facility] [place] [address] [employer]: Bala Skelton MD Lactic Acid, Whole Blood 1.9 mmol/L 0.7 - 2.1 mmol/L [facility] Lactic Acid,Whole Bl 2.3 mmol/L High 0.7-2.1 [facility] Comment on above: Performed By: #### L ACTIC #### [facility] [address] [place] [phone] [employer]: Bala Skelton MD Interpretation and review of laboratory results Abnormal [facility] Lactic Acid, Whole Blood 2.3 mmol/L High 0.7 - 2.1 mmol/L [facility] POC Glucose Fingerstickon Glucose [Mass/Vol] 164 mg/dL High 65 - 105 mg/dL [facility] Interpretation and review of laboratory results Abnormal [facility] Glucose [Mass/Vol] 177 mg/dL High 65 - 105 mg/dL [facility] Interpretation and review of laboratory results Abnormal [facility] Prot. Electroph, Blon 2021 Pathologist Review: Reviewed by patholog ist: Mary Stovall M.D. Normal [facility] Comment on above: Performed By: #### A NAX, IFX, PHEP, FKLLC, PE #### [facility] [place] [address] [employer]: Bala Skelton MD Prot. Elect-Interp NORMAL ELECTROPHORET IC PATTERN Normal [facility] Comment on above: Result Comment: IMMU NOFIXATION IS NEGATIVE FOR MONOCLONAL IMMUNOGLOBULIN. Performed By: #### A NAX, IFX, PHEP, FKLLC, PE #### [facility] [place], [place] [phone] [employer]: Bala Skelton MD Total Prot. Sum 6.2 g/dL Low 6.3-8.2 [facility] Comment on above: Performed By: #### A NAX, IFX, PHEP, FKLLC, PE #### [facility] [address] [place] [address] [employer]: Bala Skelton MD Total Prot. Sum,% 100 % Normal 98-102 [facility] Comment on above: Performed By: #### A NAX, IFX, PHEP, FKLLC, PE #### [address] [address] [employer]: Bala Skelton MD Prot. Electrophoresis, Uron 07-22-2022 Pathologist Review: Reviewed by patholog ist: Mary Stovall M.D. Normal [facility] Comment on above: Performed By: #### A NAX, IFX, PHEP, FKLLC, PE #### [address] [phone] [employer]: Bala Skelton MD Ur.-Prot.Elect-Inte r ELEVATED PROTEIN CONCENTRATION. MOST SERUM PROTEINS ARE DETECTED IN THIS URINE. Normal [facility] Comment on above: Result Comment: USUA LLY OBSERVED WITH MARKEDLY INCREASED NON-SELECTIVE GLOMERULAR PERMEABILITY (i.e. SEVERE GLOMERULAR DISEASE), CONTAMINATION OF URINE WITH BLOOD, OR A COMBINATION OF THESE. A DECREASE IN TUBULAR FUNCTION CANNOT BE RULED OUT. IMMUNOFIXATION IS NEGATIVE FOR MONOCLONAL IMMUNOGLOBULIN. Performed By: #### A NAX, IFX, PHEP, FKLLC, PE #### [place] [address] [place] [address] [employer]: Bala Skelton MD Protein Electrophoresis, Uri neon 07-22-2022 P E Interpretation, U ELEVATED PROTEIN CONCENTRATION. MOST SERUM PROTEINS ARE DETECTED IN THIS URINE. USUALLY OBSERVED WITH MARKEDLY INCREASED NON-SELECTIVE GLOMERULAR PERMEABILITY (i.e. SEVERE GLOMERULAR DISEASE), [facility] Comment on above: URINE WITH BLOOD, OR A COMBINATION OF THESE. A DECREASE IN TUBULAR FUNCTION CANNOT BE RULED OUT. IMMUNOFIXATION IS NEGATIVE FOR MONOCLONAL IMMUNOGLOBULIN. Pathologist Reviewed by patholog ist: Mary Stovall M.D. [facility] Protein (U) [Mass/Vol] 144 mg/dL [facility] Specimen Type .URINE [facility] Basic Metab w/rfx MGon 07-21 (cont.) Normal [facility] Comment on above: Result Comment: Aver age GFR for 50-59 years old: 93 mL/min/1.73sq m Chronic Kidney Disease: <60 mL/min/1.73sq m Kidney failure: <15 mL/min/1.73sq m eGFR calculated using average adult body mass. Additional eGFR calculator available at: http://www.CarRentalsMarket/multiple_crcl_2012.htm Performed By: #### A NAX, IFX, PHEP, FKLLC, PE #### [facility] [address] [place] [address] [phone] [employer]: Bala Skelton MD Anion gap [Moles/Vol] 12 mmol/L Normal 9-17 [facility] Comment on above: Performed By: #### A NAX, IFX, PHEP, FKLLC, PE #### [facility] [address] [place] [address] [phone] [employer]: Bala Skelton MD Calcium [Mass/Vol] 8.3 mg/dL Low 8.6-10.4 [facility] Comment on above: Performed By: #### A NAX, IFX, PHEP, FKLLC, PE #### [facility] [address] [place] [address] [phone] [employer]: Bala Skelton MD Chloride [Moles/Vol] 101 mmol/L Normal 98-107 [facility] Comment on above: Performed By: #### A NAX, IFX, PHEP, FKLLC, PE #### [address] [address] [employer]: Bala Skelton MD CO2 [Moles/Vol] 23 mmol/L Normal 20-31 [facility] Comment on above: Performed By: #### A NAX, IFX, PHEP, FKLLC, PE #### [address] [phone] [employer]: Bala Skelton MD Creatinine [Mass/Vol] 1.00 mg/dL High 0.50-0.90 [facility] Comment on above: Performed By: #### A NAX, IFX, PHEP, FKLLC, PE #### [address] [address] [employer]: Bala Skelton MD GFR, Amer >60 Normal >60 [facility] Comment on above: Performed By: #### A NAX, IFX, PHEP, FKLLC, PE #### [address] [address] [employer]: Bala Skelton MD GFR,non Amer 59 mL/min Low >60 [facility] Comment on above: Performed By: #### A NAX, IFX, PHEP, FKLLC, PE #### [address] [address] [employer]: Bala Skelton MD Glucose [Mass/Vol] 157 mg/dL High 70-99 [facility] Comment on above: Performed By: #### A NAX, IFX, PHEP, FKLLC, PE #### [address] [address] [employer]: Bala Skelton MD Potassium [Moles/Vol] 3.7 mmol/L Normal 3.7-5.3 [facility] Comment on above: Performed By: #### A NAX, IFX, PHEP, FKLLC, PE #### [facility] [place] [address] [employer]: Bala Skelton MD Sodium [Moles/Vol] 136 mmol/L Normal 135-144 [facility] Comment on above: Performed By: #### A NAX, IFX, PHEP, FKLLC, PE #### [facility] [address] [place] [phone] [employer]: Bala Skelton MD Urea nitrogen [Mass/Vol] 26 mg/dL High 6-20 [facility] Comment on above: Performed By: #### A NAX, IFX, PHEP, FKLLC, PE #### [address] [address] [employer]: Bala Skelton MD (cont.) [facility] Comment on above: Result Comment: Aver age GFR for 50-59 years old: 93 mL/min/1.73sq m Chronic Kidney Disease: <60 mL/min/1.73sq m Kidney failure: <15 mL/min/1.73sq m eGFR calculated using average adult body mass. Additional eGFR calculator available at: http://www.IndaBox.[facility]/multiple_crcl_2012.htm Performed By: #### B C #### [address] [address] [employer]: Bala Skelton MD Anion gap [Moles/Vol] 13 mmol/L Normal 9-17 [facility] Comment on above: Performed By: #### B C #### [address] [address] [employer]: Bala Skelton MD Calcium [Mass/Vol] 8.1 mg/dL Low 8.6-10.4 [facility] Comment on above: Performed By: #### B C #### [address] [address] [employer]: Bala Skelton MD Chloride [Moles/Vol] 101 mmol/L Normal 98-107 [facility] Comment on above: Performed By: #### B C #### [address] [address] [employer]: Bala Skelton MD CO2 [Moles/Vol] 20 mmol/L Normal 20-31 [facility] Comment on above: Performed By: #### B C #### [address] [address] [employer]: Bala Skelton MD Creatinine [Mass/Vol] 1.28 mg/dL High 0.50-0.90 [facility] Comment on above: Performed By: #### B C #### [address] [address] [employer]: Bala Skelton MD GFR, Amer 54 mL/min Low >60 [facility] Comment on above: Performed By: #### B C #### [address] [phone] [employer]: Bala Skelton MD GFR,non Amer 44 mL/min Low >60 [facility] Comment on above: Performed By: #### B C #### [address] [address] [employer]: Bala Skelton MD Glucose [Mass/Vol] 224 mg/dL High 70-99 [facility] Comment on above: Performed By: #### B C #### [address] [address] [employer]: Bala Skelton MD Potassium [Moles/Vol] 3.8 mmol/L Normal 3.7-5.3 [facility] Comment on above: Performed By: #### B C #### [address] [place] [address] [employer]: Bala Skelton MD Sodium [Moles/Vol] 134 mmol/L Low 135-144 [facility] Comment on above: Performed By: #### B C #### [facility] [address] [place] [phone] [employer]: Bala Skelton MD Urea nitrogen [Mass/Vol] 28 mg/dL High 6-20 [facility] Comment on above: Performed By: #### B C #### [facility] [address] [place] [phone] [employer]: Bala Skelton MD Anion gap [Moles/Vol] 13 mmol/L Normal 9-17 [facility] Comment on above: Performed By: #### A NAX, IFX, PHEP, FKLLC, PE #### [facility] [address] [place] [phone] [employer]: Bala Skelton MD Sodium [Moles/Vol] 131 mmol/L Low 135-144 [facility] Comment on above: Performed By: #### A NAX, IFX, PHEP, FKLLC, PE #### [address] [address] [employer]: Bala Skelton MD (cont.) Normal [facility] Comment on above: Result Comment: Aver age GFR for 50-59 years old: 93 mL/min/1.73sq m Chronic Kidney Disease: <60 mL/min/1.73sq m Kidney failure: <15 mL/min/1.73sq m eGFR calculated using average adult body mass. Additional eGFR calculator available at: http://www.IndaBox.com/multiple_crcl_2012.htm Performed By: #### A NAX, IFX, PHEP, FKLLC, PE #### [facility] [address] [place] [phone] [employer]: Bala Skelton MD Calcium [Mass/Vol] 8.4 mg/dL Low 8.6-10.4 [facility] Comment on above: Performed By: #### A NAX, IFX, PHEP, FKLLC, PE #### [facility] [address] [place] [phone] [employer]: Bala Skelton MD Chloride [Moles/Vol] 100 mmol/L Normal 98-107 [facility] Comment on above: Performed By: #### A NAX, IFX, PHEP, FKLLC, PE #### [address] [address] [employer]: Bala Skelton MD CO2 [Moles/Vol] 18 mmol/L Low 20-31 [facility] Comment on above: Performed By: #### A NAX, IFX, PHEP, FKLLC, PE #### [address] [address] [employer]: Bala Skelton MD Creatinine [Mass/Vol] 1.37 mg/dL High 0.50-0.90 [facility] Comment on above: Performed By: #### A NAX, IFX, PHEP, FKLLC, PE #### [address] [address] [employer]: Bala Skelton MD GFR, Amer 49 mL/min Low >60 [facility] Comment on above: Performed By: #### A NAX, IFX, PHEP, FKLLC, PE #### [facility] [address] [place] [phone] Director [employer]: Bala Skelton MD GFR,non Amer 41 mL/min Low >60 [facility] Comment on above: Performed By: #### A NAX, IFX, PHEP, FKLLC, PE #### [facility] [address] [place] [address] [phone] Director [employer]: Bala Skelton MD Glucose [Mass/Vol] 184 mg/dL High 70-99 [facility] Comment on above: Performed By: #### A NAX, IFX, PHEP, FKLLC, PE #### [facility] [address] [place], [place] [phone] [employer]: Bala Skelton MD Potassium [Moles/Vol] 3.8 mmol/L Normal 3.7-5.3 [facility] Comment on above: Performed By: #### A NAX, IFX, PHEP, FKLLC, PE #### [facility] [address] [place], [place] [phone] Director [employer]: Bala Skelton MD Urea nitrogen [Mass/Vol] 27 mg/dL High 6-20 [facility] Comment on above: Performed By: #### A NAX, IFX, PHEP, FKLLC, PE #### [facility] [address] [place], [place] [phone] [employer]: Bala Skelton MD Basic Metabolic Panel w/ Ref romulo to MGon 07-21-2022 Anion gap [Moles/Vol] 12 mmol/L 9 - 17 mmol/L [facility] Calcium [Mass/Vol] 8.3 mg/dL Low 8.6 - 10. 4 mg/dL [facility] Chloride [Moles/Vol] 101 mmol/L 98 - 107 mmol/L [facility] CO2 [Moles/Vol] 23 mmol/L 20 - 31 mmol/L [facility] Creatinine [Mass/Vol] 1 mg/dL High 0.5 - 0.9 mg/dL [facility] GFR >60 60 - PINF mL/min [facility] GFR Non- 59 mL/min Low 60 - PINF mL/min [facility] GFR/1.73 sq M.predicted MDRD (S/P/Bld) [Vol rate/Area] [facility] Comment on above: Average GFR for 50-5 9 years old: 93 mL/min/1.73sq m Chronic Kidney Disease: <60 mL/min/1.73sq m Kidney failure: <15 mL/min/1.73sq m eGFR calculated using average adult body mass. Additional eGFR calculator available at: http://www.CarRentalsMarket/LiquidM_crcl_2012.htm Glucose [Mass/Vol] 157 mg/dL High 70 - 99 mg/dL [facility] Interpretation and review of laboratory results Abnormal [facility] [employer] Potassium [Moles/Vol] 3.7 mmol/L 3.7 - 5.3 mmol/L [facility] Sodium [Moles/Vol] 136 mmol/L 135 - 144 mmol/L [facility] Urea nitrogen (BldV) [Mass/Vol] 26 mg/dL High 6 - 20 mg/dL [facility] Anion gap [Moles/Vol] 13 mmol/L 9 - 17 mmol/L [facility] Calcium [Mass/Vol] 8.1 mg/dL Low 8.6 - 10. 4 mg/dL [facility] Chloride [Moles/Vol] 101 mmol/L 98 - 107 mmol/L [facility] CO2 [Moles/Vol] 20 mmol/L 20 - 31 mmol/L [facility] Creatinine [Mass/Vol] 1.28 mg/dL High 0.5 - 0.9 mg/dL [facility] GFR 54 mL/min Low 60 - PINF mL/min [facility] GFR Non- 44 mL/min Low 60 - PINF mL/min [facility] GFR/1.73 sq M.predicted MDRD (S/P/Bld) [Vol rate/Area] [facility] Comment on above: Average GFR for 50-5 9 years old: 93 mL/min/1.73sq m Chronic Kidney Disease: <60 mL/min/1.73sq m Kidney failure: <15 mL/min/1.73sq m eGFR calculated using average adult body mass. Additional eGFR calculator available at: http://www.CarRentalsMarket/multiple_crcl_2012.htm Glucose [Mass/Vol] 224 mg/dL High 70 - 99 mg/dL [facility] Interpretation and review of laboratory results Abnormal [facility] Potassium [Moles/Vol] 3.8 mmol/L 3.7 - 5.3 mmol/L [facility] Sodium [Moles/Vol] 134 mmol/L Low 135 - 144 mmol/L [facility] Urea nitrogen (BldV) [Mass/Vol] 28 mg/dL High 6 - 20 mg/dL [facility] Immunofixation,Urineon 07-21 Protein (U) [Mass/Vol] 144 mg/dL Normal [facility] Comment on above: Performed By: #### A NAX, IFX, PHEP, FKLLC, PE #### [facility] [address] [place] [address] [phone] [employer]: Bala Skelton MD Type of Specimen .URINE Normal [facility] Comment on above: Performed By: #### A NAX, IFX, PHEP, FKLLC, PE #### [facility] [address] [place] [address] [phone] [employer]: Bala Skelton MD Lactic Acidon 07-21-2022 Lactic Acid,Whole Bl 2.5 mmol/L High 0.7-2.1 [facility] Comment on above: Performed By: #### A NAX, IFX, PHEP, FKLLC, PE #### [facility] [address] [place] [phone] [employer]: Bala Skelton MD Interpretation and review of laboratory results Abnormal [facility] Lactic Acid, Whole Blood 2.5 mmol/L High 0.7 - 2.1 mmol/L [facility] Lactic Acid,Whole Bl 1.9 mmol/L Normal 0.7-2.1 [facility] Comment on above: Performed By: #### L ACTIC #### [facility] [address] [place] [address] [phone] [employer]: Bala Skelton MD Lactic Acid, Whole Blood 1.9 mmol/L 0.7 - 2.1 mmol/L [facility] Lactic Acid,Whole Bl 3.0 mmol/L High 0.7-2.1 [facility] Comment on above: Performed By: #### A NAX, IFX, PHEP, FKLLC, PE #### [facility] [address] [place] [address] [phone] [employer]: Bala Skelton MD Interpretation and review of laboratory results Abnormal [facility] Lactic Acid, Whole Blood 3.0 mmol/L High 0.7 - 2.1 mmol/L [facility] Lactic Acid,Whole Bl 2.2 mmol/L High 0.7-2.1 [facility] Comment on above: Performed By: #### A NAX, IFX, PHEP, FKLLC, PE #### [facility] [address] [place] [phone] [employer]: Bala Skelton MD Interpretation and review of laboratory results Abnormal [facility] Lactic Acid, Whole Blood 2.2 mmol/L High 0.7 - 2.1 mmol/L [facility] [facility] Glucose Fingerstickon Glucose [Mass/Vol] 210 mg/dL High 65 - 105 mg/dL [facility] Interpretation and review of laboratory results Abnormal [facility] Glucose [Mass/Vol] 142 mg/dL High 65 - 105 mg/dL [facility] Interpretation and review of laboratory results Abnormal [facility] Glucose [Mass/Vol] 227 mg/dL High 65 - 105 mg/dL [facility] Interpretation and review of laboratory results Abnormal [facility] Glucose [Mass/Vol] 219 mg/dL High 65 - 105 mg/dL [facility] Interpretation and review of laboratory results Abnormal [facility] Prot. Electroph, Blon 2021 Albumin [Mass/Vol] 3.6 g/dL Normal 3.2-5.2 [facility] Comment on above: Performed By: #### A NAX, IFX, PHEP, FKLLC, PE #### [facility] [employer] [facility] [place] [address] [employer]: Bala Skelton MD Albumin, % 57 % Normal 45-65 [facility] Comment on above: Performed By: #### A NAX, IFX, PHEP, FKLLC, PE #### [facility] [employer] [address] [place] [phone] [employer]: Bala Skelton MD Fkgya-2-pxbkhltdm 0.2 g/dL Normal 0.1-0.4 [facility] Comment on above: Performed By: #### A NAX, IFX, PHEP, FKLLC, PE #### [facility] [employer] [address] [place] [phone] [employer]: Bala Skelton MD Xjarf-9-rfmyhffbz,% 4 % Normal 3-6 [facility] Comment on above: Performed By: #### A NAX, IFX, PHEP, FKLLC, PE #### [facility] [employer] [address] [place] [phone] [employer]: Bala Skelton MD Ybshv-1-zeejkfqqw 0.9 g/dL Normal 0.5-0.9 [facility] Comment on above: Performed By: #### A NAX, IFX, PHEP, FKLLC, PE #### [facility] [employer] [address] [place] [phone] [employer]: Bala Skelton MD Skzne-9-earabooae,% 15 % High 6-13 [facility] Comment on above: Performed By: #### A NAX, IFX, PHEP, FKLLC, PE #### [address] [address] [employer]: Bala Skelton MD Beta-globulins 0.9 g/dL Normal 0.5-1.1 [facility] Comment on above: Performed By: #### A NAX, IFX, PHEP, FKLLC, PE #### [address] [address] [employer]: Bala Skelton MD Beta-globulins,% 14 % Normal - [facility] Comment on above: Performed By: #### A NAX, IFX, PHEP, FKLLC, PE #### [address] [address] [employer]: Bala Skelton MD Gamma-globulins 0.6 g/dL Normal 0.5-1.5 [facility] Comment on above: Performed By: #### A NAX, IFX, PHEP, FKLLC, PE #### [address] [address] [employer]: Bala Skelton MD Gamma-globulins,% 10 % Normal - [facility] Comment on above: Performed By: #### A NAX, IFX, PHEP, FKLLC, PE #### [address] [address] [employer]: Bala Skelton MD Prot. Electrophoresis, Uron 07-21-2022 Total Protein Conc. 144 mg/dL Normal [facility] Comment on above: Performed By: #### A NAX, IFX, PHEP, FKLLC, PE #### [address] [address] [employer]: Bala Skelton MD BLOOD GAS, VENOUSon 07-20-20 22 Carboxyhemoglobin 1.4 % 0 - 5 % [facility] Comment on above: Reference Range: Non-Smokers 0-2% Average Smoker 2-4% Heavy Smoker <10% FIO2 INFORMATION NOT PROVIDED [facility] [employer] HCO3 (Bld) [Moles/Vol] 19.6 mmol/L Low 24 - 30 mmol/L [facility] [employer] Interpretation and review of laboratory results Abnormal [facility] Negative Base Excess, Olaf 5.6 mmol/L High 0 - 2 mmol/L [facility] Oxygen saturation in Blood 74.4 % 60 - 85 % [facility] [employer] pCO2, Olaf 39.5 39 - 55 [facility] pH, Olaf 7.316 Low 7.32 - 7.42 [facility] pO2, Olaf 36.9 30 - 50 [facility] [employer] Pt Temp 37.0 [facility] [employer] Basic Metab w/rfx MGon 07-20 (cont.) Normal [facility] Comment on above: Result Comment: Aver age GFR for 50-59 years old: 93 mL/min/1.73sq m Chronic Kidney Disease: <60 mL/min/1.73sq m Kidney failure: <15 mL/min/1.73sq m eGFR calculated using average adult body mass. Additional eGFR calculator available at: http://www.CarRentalsMarket/multiple_crcl_2012.htm Performed By: #### A NAX, IFX, PHEP, FKLLC, PE #### [employer] [address] [place] [phone] Director [employer]: Bala Skelton MD Anion gap [Moles/Vol] 13 mmol/L Normal 9-17 [facility] Comment on above: Performed By: #### A NAX, IFX, PHEP, FKLLC, PE #### [facility] [address] [place], [place] [phone] [employer]: Bala Skelton MD Calcium [Mass/Vol] 8.7 mg/dL Normal 8.6-10.4 [facility] Comment on above: Performed By: #### A NAX, IFX, PHEP, FKLLC, PE #### [facility] [address] [place] [address] Director [employer]: Bala Skelton MD Chloride [Moles/Vol] 97 mmol/L Low 98-107 [facility] Comment on above: Performed By: #### A NAX, IFX, PHEP, FKLLC, PE #### [address] [address] [employer]: Bala Skelton MD CO2 [Moles/Vol] 18 mmol/L Low 20-31 [facility] Comment on above: Performed By: #### A NAX, IFX, PHEP, FKLLC, PE #### [address] [address] [employer]: Bala Skelton MD Creatinine [Mass/Vol] 1.62 mg/dL High 0.50-0.90 [facility] Comment on above: Performed By: #### A NAX, IFX, PHEP, FKLLC, PE #### [address] [address] [employer]: Bala Skelton MD GFR, Amer 41 mL/min Low >60 [facility] Comment on above: Performed By: #### A NAX, IFX, PHEP, FKLLC, PE #### [address] [address] [employer]: Bala Skelton MD GFR,non Amer 34 mL/min Low >60 [facility] Comment on above: Performed By: #### A NAX, IFX, PHEP, FKLLC, PE #### [facility] [address] [place] [address] Director [employer]: Bala Skelton MD Glucose [Mass/Vol] 360 mg/dL High 70-99 [facility] Comment on above: Performed By: #### A NAX, IFX, PHEP, FKLLC, PE #### [facility] [place] [address] [employer]: Bala Skelton MD Potassium [Moles/Vol] 5.1 mmol/L Normal 3.7-5.3 [facility] Comment on above: Performed By: #### A NAX, IFX, PHEP, FKLLC, PE #### [address] [address] [employer]: Bala Skelton MD Sodium [Moles/Vol] 128 mmol/L Low 135-144 [facility] Comment on above: Performed By: #### A NAX, IFX, PHEP, FKLLC, PE #### [address] [address] [employer]: Bala Skelton MD Urea nitrogen [Mass/Vol] 32 mg/dL High 6-20 [facility] Comment on above: Performed By: #### A NAX, IFX, PHEP, FKLLC, PE #### [address] [address] [employer]: Bala Skelton MD (cont.) [facility] Comment on above: Result Comment: Aver age GFR for 50-59 years old: 93 mL/min/1.73sq m Chronic Kidney Disease: <60 mL/min/1.73sq m Kidney failure: <15 mL/min/1.73sq m eGFR calculated using average adult body mass. Additional eGFR calculator available at: http://www.IndaBox.com/multiple_crcl_2012.htm Performed By: #### A NAX, IFX, PHEP, FKLLC, PE #### [facility] [employer] [address] [place] [phone] [employer]: Bala Skelton MD Anion gap [Moles/Vol] 14 mmol/L Normal 9-17 [facility] Comment on above: Performed By: #### A NAX, IFX, PHEP, FKLLC, PE #### [facility] [address] [place] [address] Director [employer]: Bala Skelton MD Calcium [Mass/Vol] 8.2 mg/dL Low 8.6-10.4 [facility] Comment on above: Performed By: #### A NAX, IFX, PHEP, FKLLC, PE #### [facility] [address] [place] [address] [employer]: Bala Skelton MD Chloride [Moles/Vol] 96 mmol/L Low 98-107 [facility] Comment on above: Performed By: #### A NAX, IFX, PHEP, FKLLC, PE #### [address] [address] [employer]: Bala Skelton MD CO2 [Moles/Vol] 17 mmol/L Low 20-31 [facility] Comment on above: Performed By: #### A NAX, IFX, PHEP, FKLLC, PE #### [address] [address] [employer]: Bala Skelton MD Creatinine [Mass/Vol] 1.68 mg/dL High 0.50-0.90 [facility] Comment on above: Performed By: #### A NAX, IFX, PHEP, FKLLC, PE #### [address] [address] [employer]: Bala Skelton MD GFR, Amer 39 mL/min Low >60 [facility] Comment on above: Performed By: #### A NAX, IFX, PHEP, FKLLC, PE #### [facility] [address] [place] [address] Director [employer]: Bala Skelton MD GFR,non Amer 32 mL/min Low >60 [facility] Comment on above: Performed By: #### A NAX, IFX, PHEP, FKLLC, PE #### [address] [address] [employer]: Bala Skelton MD Potassium [Moles/Vol] 4.4 mmol/L Normal 3.7-5.3 [facility] Comment on above: Performed By: #### A NAX, IFX, PHEP, FKLLC, PE #### [address] [address] [employer]: Bala Skelton MD Sodium [Moles/Vol] 127 mmol/L Low 135-144 [facility] Comment on above: Performed By: #### A NAX, IFX, PHEP, FKLLC, PE #### [address] [address] [employer]: Bala Skelton MD Urea nitrogen [Mass/Vol] 33 mg/dL High 6-20 [facility] Comment on above: Performed By: #### A NAX, IFX, PHEP, FKLLC, PE #### [address] [address] [employer]: Bala Skelton MD Glucose [Mass/Vol] 427 mg/dL Critically high 70-99 [facility] Comment on above: Performed By: #### A NAX, IFX, PHEP, FKLLC, PE #### [facility] [address] [place] [address] [employer]: Bala Skelton MD Glucose [Mass/Vol] 416 mg/dL Critically high 70-99 [facility] Comment on above: Performed By: #### A NAX, IFX, PHEP, FKLLC, PE #### [address] [address] [employer]: Bala Skelton MD (cont.) Normal [facility] Comment on above: Result Comment: Aver age GFR for 50-59 years old: 93 mL/min/1.73sq m Chronic Kidney Disease: <60 mL/min/1.73sq m Kidney failure: <15 mL/min/1.73sq m eGFR calculated using average adult body mass. Additional eGFR calculator available at: http://www.IndaBox.MTM [facility]/multiple_crcl_2012.htm Performed By: #### A NAX, IFX, PHEP, FKLLC, PE #### [facility] [address] [place] [address] Director [employer]: Bala Skelton MD Anion gap [Moles/Vol] 15 mmol/L Normal 9-17 [facility] Comment on above: Performed By: #### A NAX, IFX, PHEP, FKLLC, PE #### [facility] [address] [place] [phone] Director [employer]: Bala Skelton MD Calcium [Mass/Vol] 8.5 mg/dL Low 8.6-10.4 [facility] Comment on above: Performed By: #### A NAX, IFX, PHEP, FKLLC, PE #### [facility] [address] [place] [address] Director [employer]: Bala Skelton MD Chloride [Moles/Vol] 95 mmol/L Low 98-107 [facility] Comment on above: Performed By: #### A NAX, IFX, PHEP, FKLLC, PE #### [facility] [address] [place] [address] Director [employer]: Bala Skelton MD CO2 [Moles/Vol] 18 mmol/L Low 20-31 [facility] Comment on above: Performed By: #### A NAX, IFX, PHEP, FKLLC, PE #### [facility] [address] [place] [phone] Director [employer]: Bala Skelton MD Creatinine [Mass/Vol] 2.11 mg/dL High 0.50-0.90 [facility] Comment on above: Performed By: #### A NAX, IFX, PHEP, FKLLC, PE #### [facility] [address] [place] [address] [employer]: Bala Skelton MD GFR, Amer 30 mL/min Low >60 [facility] Comment on above: Performed By: #### A NAX, IFX, PHEP, FKLLC, PE #### [address] [address] [employer]: Bala Skelton MD GFR,non Amer 25 mL/min Low >60 [facility] Comment on above: Performed By: #### A NAX, IFX, PHEP, FKLLC, PE #### [facility] [employer] [address] [place] [phone] [employer]: Bala Skelton MD Potassium [Moles/Vol] 5.0 mmol/L Normal 3.7-5.3 [facility] Comment on above: Performed By: #### A NAX, IFX, PHEP, FKLLC, PE #### [facility] [employer] [address] [place] [address] Director [employer]: Bala Skelton MD Sodium [Moles/Vol] 128 mmol/L Low 135-144 [facility] Comment on above: Performed By: #### A NAX, IFX, PHEP, FKLLC, PE #### [facility] [address] [place] [phone] [employer]: Bala Skelton MD Urea nitrogen [Mass/Vol] 38 mg/dL High 6-20 [facility] Comment on above: Performed By: #### A NAX, IFX, PHEP, FKLLC, PE #### [facility] [address] [place] [address] Director [employer]: Bala Skelton MD Basic Metabolic Panelon 07-07 Anion gap [Moles/Vol] 16 mmol/L 9 - 17 mmol/L [facility] Calcium [Mass/Vol] 8.2 mg/dL Low 8.6 - 10. 4 mg/dL [facility] [employer] Chloride [Moles/Vol] 95 mmol/L Low 98 - 107 mmol/L [facility] CO2 [Moles/Vol] 17 mmol/L Low 20 - 31 mmol/L [facility]ENTER[facility] Secure [facility] Creatinine [Mass/Vol] 2.35 mg/dL High 0.5 - 0.9 mg/dL [facility] GFR 27 mL/min Low 60 - PINF mL/min [facility] GFR Non- 22 mL/min Low 60 - PINF mL/min [facility] GFR/1.73 sq M.predicted MDRD (S/P/Bld) [Vol rate/Area] [facility] [employer] [facility] Comment on above: Average GFR for 50-5 9 years old: 93 mL/min/1.73sq m Chronic Kidney Disease: <60 mL/min/1.73sq m Kidney failure: <15 mL/min/1.73sq m eGFR calculated using average adult body mass. Additional eGFR calculator available at: http://www.CarRentalsMarket/multiple_crcl_2012.htm Glucose [Mass/Vol] 439 mg/dL Critically high 70 - 99 mg/d L [facility] Interpretation and review of laboratory results Abnormal [facility] [employer]book Potassium [Moles/Vol] 5.2 mmol/L 3.7 - 5.3 mmol/L [facility] [employer] [facility] Sodium [Moles/Vol] 128 mmol/L Low 135 - 144 mmol/L [facility] Urea nitrogen (BldV) [Mass/Vol] 37 mg/dL High 6 - 20 mg/dL [facility] [employer]up [facility] Basic Metabolic Panel w/ Ref romulo to MGon 07-20-2022 Anion gap [Moles/Vol] 13 mmol/L 9 - 17 mmol/L [facility] Calcium [Mass/Vol] 8.4 mg/dL Low 8.6 - 10. 4 mg/dL [facility] Chloride [Moles/Vol] 100 mmol/L 98 - 107 mmol/L [facility] CO2 [Moles/Vol] 18 mmol/L Low 20 - 31 mmol/L [facility] Creatinine [Mass/Vol] 1.37 mg/dL High 0.5 - 0.9 mg/dL [facility] GFR 49 mL/min Low 60 - PINF mL/min [facility] GFR Non- 41 mL/min Low 60 - PINF mL/min [facility] GFR/1.73 sq M.predicted MDRD (S/P/Bld) [Vol rate/Area] [facility] Comment on above: Average GFR for 50-5 9 years old: 93 mL/min/1.73sq m Chronic Kidney Disease: <60 mL/min/1.73sq m Kidney failure: <15 mL/min/1.73sq m eGFR calculated using average adult body mass. Additional eGFR calculator available at: http://www.CarRentalsMarket/multiple_crcl_2012.htm Glucose [Mass/Vol] 184 mg/dL High 70 - 99 mg/dL [facility] Interpretation and review of laboratory results Abnormal [facility] Potassium [Moles/Vol] 3.8 mmol/L 3.7 - 5.3 mmol/L [facility] Sodium [Moles/Vol] 131 mmol/L Low 135 - 144 mmol/L [facility] Urea nitrogen (BldV) [Mass/Vol] 27 mg/dL High 6 - 20 mg/dL [facility] Anion gap [Moles/Vol] 13 mmol/L 9 - 17 mmol/L [facility] Calcium [Mass/Vol] 8.7 mg/dL 8.6 - 10. 4 mg/dL [facility] Chloride [Moles/Vol] 97 mmol/L Low 98 - 107 mmol/L [facility] CO2 [Moles/Vol] 18 mmol/L Low 20 - 31 mmol/L [facility] Creatinine [Mass/Vol] 1.62 mg/dL High 0.5 - 0.9 mg/dL [facility] GFR 41 mL/min Low 60 - PINF mL/min [facility] GFR Non- 34 mL/min Low 60 - PINF mL/min [facility] GFR/1.73 sq M.predicted MDRD (S/P/Bld) [Vol rate/Area] [facility] Comment on above: Average GFR for 50-5 9 years old: 93 mL/min/1.73sq m Chronic Kidney Disease: <60 mL/min/1.73sq m Kidney failure: <15 mL/min/1.73sq m eGFR calculated using average adult body mass. Additional eGFR calculator available at: http://www.CarRentalsMarket/multiple_crcl_2011.htm Glucose [Mass/Vol] 360 mg/dL High 70 - 99 mg/dL [facility]ENTER[facility] Potassium [Moles/Vol] 5.1 mmol/L 3.7 - 5.3 mmol/L [facility] Sodium [Moles/Vol] 128 mmol/L Low 135 - 144 mmol/L [facility] Urea nitrogen (BldV) [Mass/Vol] 32 mg/dL High 6 - 20 mg/dL [facility]ENTER[facility] Anion gap [Moles/Vol] 14 mmol/L 9 - 17 mmol/L [facility] Calcium [Mass/Vol] 8.2 mg/dL Low 8.6 - 10. 4 mg/dL [facility] Chloride [Moles/Vol] 96 mmol/L Low 98 - 107 mmol/L [facility] CO2 [Moles/Vol] 17 mmol/L Low 20 - 31 mmol/L [facility] Creatinine [Mass/Vol] 1.68 mg/dL High 0.5 - 0.9 mg/dL [facility]ENTER[facility] GFR 39 mL/min Low 60 - PINF mL/min [facility] GFR Non- 32 mL/min Low 60 - PINF mL/min [facility] GFR/1.73 sq M.predicted MDRD (S/P/Bld) [Vol rate/Area] [facility] [employer] Comment on above: Average GFR for 50-5 9 years old: 93 mL/min/1.73sq m Chronic Kidney Disease: <60 mL/min/1.73sq m Kidney failure: <15 mL/min/1.73sq m eGFR calculated using average adult body mass. Additional eGFR calculator available at: http://www.CarRentalsMarket/multiple_crcl_2012.htm Interpretation and review of laboratory results Abnormal [facility] Liveyearbook Potassium [Moles/Vol] 4.4 mmol/L 3.7 - 5.3 mmol/L [facility] Sodium [Moles/Vol] 127 mmol/L Low 135 - 144 mmol/L [facility] Liveyearbook Urea nitrogen (BldV) [Mass/Vol] 33 mg/dL High 6 - 20 mg/dL [facility]ENTERPocitsBAYFR[facility]izedK[facility] Anion gap [Moles/Vol] 15 mmol/L 9 - 17 mmol/L [facility] [employer] Calcium [Mass/Vol] 8.5 mg/dL Low 8.6 - 10. 4 mg/dL [facility]ENTERPocitsK[facility] Chloride [Moles/Vol] 95 mmol/L Low 98 - 107 mmol/L [facility]ENTERP[facility] Liveyearbook CO2 [Moles/Vol] 18 mmol/L Low 20 - 31 mmol/L [facility]ENTERPocitsK[facility] Creatinine [Mass/Vol] 2.11 mg/dL High 0.5 - 0.9 mg/dL [facility]ENTERP[facility] Liveyearbook GFR 30 mL/min Low 60 - PINF mL/min [facility] Liveyearbook GFR Non- 25 mL/min Low 60 - PINF mL/min [facility]ENTERP[facility] Liveyearbook GFR/1.73 sq M.predicted MDRD (S/P/Bld) [Vol rate/Area] [facility]ENTERHa[facility] Secure [facility] Comment on above: Average GFR for 50-5 9 years old: 93 mL/min/1.73sq m Chronic Kidney Disease: <60 mL/min/1.73sq m Kidney failure: <15 mL/min/1.73sq m eGFR calculated using average adult body mass. Additional eGFR calculator available at: http://www.CarRentalsMarket/multiple_crcl_2012.htm Glucose [Mass/Vol] 416 mg/dL Critically high 70 - 99 mg/d L [facility] Interpretation and review of laboratory results Abnormal [facility] Potassium [Moles/Vol] 5.0 mmol/L 3.7 - 5.3 mmol/L [facility] Sodium [Moles/Vol] 128 mmol/L Low 135 - 144 mmol/L [facility] Urea nitrogen (BldV) [Mass/Vol] 38 mg/dL High 6 - 20 mg/dL [facility] Basic Metabolic Profon 07-20 Glucose [Mass/Vol] 439 mg/dL Critically high 70-99 [facility] Comment on above: Performed By: #### A NAX, IFX, PHEP, FKLLC, PE #### [place] [phone] Director [employer]: Bala Skelton MD (cont.) [facility] Comment on above: Result Comment: Aver age GFR for 50-59 years old: 93 mL/min/1.73sq m Chronic Kidney Disease: <60 mL/min/1.73sq m Kidney failure: <15 mL/min/1.73sq m eGFR calculated using average adult body mass. Additional eGFR calculator available at: http://www.CarRentalsMarket/multiple_crcl_2012.htm Performed By: #### A NAX, IFX, PHEP, FKLLC, PE #### [place] [phone] Director [employer]: Bala Skelton MD Anion gap [Moles/Vol] 16 mmol/L Normal 9-17 [facility] Comment on above: Performed By: #### A NAX, IFX, PHEP, FKLLC, PE #### [address] [phone] Director [employer]: Bala Skelton MD Calcium [Mass/Vol] 8.2 mg/dL Low 8.6-10.4 [facility] Comment on above: Performed By: #### A NAX, IFX, PHEP, FKLLC, PE #### [facility] [address] [place] [address] Director [employer]: Bala Skelton MD Chloride [Moles/Vol] 95 mmol/L Low 98-107 [facility] Comment on above: Performed By: #### A NAX, IFX, PHEP, FKLLC, PE #### [facility] [address] [place] [address] Director [employer]: Bala Skelton MD CO2 [Moles/Vol] 17 mmol/L Low 20-31 [facility] Comment on above: Performed By: #### A NAX, IFX, PHEP, FKLLC, PE #### [facility] [address] [place] [phone] Director [employer]: Bala Skelton MD Creatinine [Mass/Vol] 2.35 mg/dL High 0.50-0.90 [facility] Comment on above: Performed By: #### A NAX, IFX, PHEP, FKLLC, PE #### [facility] [address] [place] [phone] [employer]: Bala Skelton MD GFR, Amer 27 mL/min Low >60 [facility] Comment on above: Performed By: #### A NAX, IFX, PHEP, FKLLC, PE #### [facility] [address] [place] [phone] [employer]: Bala Skelton MD GFR,non Amer 22 mL/min Low >60 [facility] Comment on above: Performed By: #### A NAX, IFX, PHEP, FKLLC, PE #### [facility] [address] [place] [phone] Director [employer]: Bala Skelton MD Potassium [Moles/Vol] 5.2 mmol/L Normal 3.7-5.3 [facility] Comment on above: Performed By: #### A NAX, IFX, PHEP, FKLLC, PE #### [facility] [employer] [address] [place] [phone] Director [employer]: Bala Skelton MD Sodium [Moles/Vol] 128 mmol/L Low 135-144 [facility] Comment on above: Performed By: #### A NAX, IFX, PHEP, FKLLC, PE #### [facility] [address] [place] [phone] [employer]: Bala Skelton MD Urea nitrogen [Mass/Vol] 37 mg/dL High 6-20 [facility] Comment on above: Performed By: #### A NAX, IFX, PHEP, FKLLC, PE #### [facility] [address] [place] [phone] [employer]: Bala Skelton MD C3on 07-20-2022 C3 209 mg/dL High 90-180 [facility] Comment on above: Performed By: #### A NAX, IFX, PHEP, FKLLC, PE #### [facility] [address] [place] [phone] [employer]: Bala Skelton MD C3 Complementon 07-20-2022 Complement C3 209 mg/dL High 90 - 180 mg/dL [facility] C4on 07-20-2022 C4 41 mg/dL High 10-40 [facility] Comment on above: Performed By: #### A NAX, IFX, PHEP, FKLLC, PE #### [facility] [address] [place] [phone] [employer]: Bala Skelton MD C4 Complementon 07-20-2022 Complement C4 41 mg/dL High 10 - 40 mg/dL [facility] CBC with Auto Differentialon 07-20-2022 Absolute Eos # 0.00 [facility] Absolute Immature Granulocyte 0.07 [facility] Absolute Lymph # 0.46 Low [facility] Absolute [place] # 0.33 [facility] Basophils (Bld) [#/Vol] 0.00 10*3/uL [facility] Basophils/100 WBC (Bld) 0 % 0 - 2 % [facility] Eosinophils/100 WBC (Bld) 0 % Low 1 - 4 % [facility] Hematocrit (Bld) [Volume fraction] 33.3 % Low 36.3 - 47.1 % [facility] Hemoglobin (Bld) [Mass/Vol] 11.0 g/dL Low 11.9 - 15.1 g/dL [facility] Immature granulocytes/100 WBC (Bld) 1 % High 0 [facility] Interpretation and review of laboratory results Abnormal [facility] Lymphocytes/100 WBC (Bld) 7 % Low 24 - 44 % [facility] MCH (RBC) [Entitic mass] 28.6 pg 25.2 - 33.5 pg [facility] MCHC (RBC) [Mass/Vol] 33.0 g/dL 28.4 - 34.8 g/dL [facility] MCV (RBC) [Entitic vol] 86.7 fL 82.6 - 102.9 fL [facility] Monocytes/100 WBC (Bld) 5 % 1 - 7 % [facility] Morphology Bran (Bld) [Interp] Normal [facility] NRBC Automated 0.0 0.0 per 100 WBC [facility] Platelet distribution width (Bld) [Ratio] 13.8 % 11.8 - 14.4 % [facility] Platelets (Bld) [#/Vol] See Reflexed IPF Result [facility] RBC (Bld) [#/Vol] 3.84 10*6/uL Low 3.95 - 5.1 1 m/uL [facility] Segmented neutrophils/100 WBC (Bld) 87 % High 36 - 66 % [facility] Segs Absolute 5.74 [facility] WBC (Bld) [#/Vol] 6.6 10*3/uL [facility] Absolute Eos # 0.00 [facility] Absolute Immature Granulocyte 0.10 [facility] Absolute Lymph # 0.31 Low [facility] Absolute [place] # 0.41 [facility] Basophils (Bld) [#/Vol] 0.00 10*3/uL [facility] Basophils/100 WBC (Bld) 0 % 0 - 2 % [facility] Eosinophils/100 WBC (Bld) 0 % Low 1 - 4 % [facility] Hematocrit (Bld) [Volume fraction] 32.4 % Low 36.3 - 47.1 % [facility] Hemoglobin (Bld) [Mass/Vol] 11.0 g/dL Low 11.9 - 15.1 g/dL [facility] Immature granulocytes/100 WBC (Bld) 1 % High 0 [facility] Interpretation and review of laboratory results Abnormal [facility] Lymphocytes/100 WBC (Bld) 3 % Low 24 - 44 % [facility] MCH (RBC) [Entitic mass] 29.4 pg 25.2 - 33.5 pg [facility] MCHC (RBC) [Mass/Vol] 34.0 g/dL 28.4 - 34.8 g/dL [facility] MCV (RBC) [Entitic vol] 86.6 fL 82.6 - 102.9 fL [facility] Monocytes/100 WBC (Bld) 4 % 1 - 7 % [facility] Morphology Bran (Bld) [Interp] Normal [facility] NRBC Automated 0.0 0.0 per 100 WBC [facility] Platelet distribution width (Bld) [Ratio] 13.6 % 11.8 - 14.4 % [facility] Platelet mean volume (Bld) [Entitic vol] 10.4 fL 8.1 - 13.5 fL [facility] Platelets (Bld) [#/Vol] 252 10*3/uL [facility] RBC (Bld) [#/Vol] 3.74 10*6/uL Low 3.95 - 5.1 1 m/uL [facility] Segmented neutrophils/100 WBC (Bld) 92 % High 36 - 66 % [facility] Segs Absolute 9.38 High [facility] WBC (Bld) [#/Vol] 10.2 10*3/uL [facility] Absolute Eos # 0.12 [facility] Absolute Immature Granulocyte 0.12 [facility] Absolute Lymph # 0.49 Low [facility] Absolute [place] # 0.00 Low [facility] Basophils (Bld) [#/Vol] 0.00 10*3/uL [facility] Basophils/100 WBC (Bld) 0 % 0 - 2 % [facility] Eosinophils/100 WBC (Bld) 1 % 1 - 4 % [facility] Hematocrit (Bld) [Volume fraction] 31.3 % Low 36.3 - 47.1 % [facility] Hemoglobin (Bld) [Mass/Vol] 10.6 g/dL Low 11.9 - 15.1 g/dL [facility] Immature granulocytes/100 WBC (Bld) 1 % High 0 [facility] Interpretation and review of laboratory results Abnormal [facility] Lymphocytes/100 WBC (Bld) 4 % Low 24 - 44 % [facility] MCH (RBC) [Entitic mass] 29.3 pg 25.2 - 33.5 pg [facility] MCHC (RBC) [Mass/Vol] 33.9 g/dL 28.4 - 34.8 g/dL [facility] MCV (RBC) [Entitic vol] 86.5 fL 82.6 - 102.9 fL [facility] Monocytes/100 WBC (Bld) 0 % Low 1 - 7 % [facility] Morphology Bran (Bld) [Interp] Normal [facility] NRBC Automated 0.0 0.0 per 100 WBC [facility] Platelet distribution width (Bld) [Ratio] 13.5 % 11.8 - 14.4 % [facility] Platelet mean volume (Bld) [Entitic vol] 10.2 fL 8.1 - 13.5 fL [facility] Platelets (Bld) [#/Vol] 280 10*3/uL [facility] RBC (Bld) [#/Vol] 3.62 10*6/uL Low 3.95 - 5.1 1 m/uL [facility] Segmented neutrophils/100 WBC (Bld) 94 % High 36 - 66 % [facility] Segs Absolute 11.57 High [facility] WBC (Bld) [#/Vol] 12.3 10*3/uL High [facility] CBC with Diffon 07-20-2022 Abs. Basophil 0.00 k/uL Normal 0.0-0.2 [facility] Comment on above: Performed By: #### A NAX, IFX, PHEP, FKLLC, PE #### [place] [address] [employer]: Bala Skelton MD Abs.Imm.Granulocyte 0.07 k/uL Normal 0.00-0.30 [facility] Comment on above: Performed By: #### A NAX, IFX, PHEP, FKLLC, PE #### [place] [address] [employer]: Bala Skelton MD Abs.Neutrophil (Seg) 5.74 k/uL Normal 1.8-7.7 [facility] Comment on above: Performed By: #### A NAX, IFX, PHEP, FKLLC, PE #### [place] [address] [employer]: Bala Skelton MD Basophils/100 WBC (Bld) 0 % Normal 0-2 [facility] Comment on above: Performed By: #### A NAX, IFX, PHEP, FKLLC, PE #### [place] [address] [employer]: Bala Skelton MD Eosinophils (Bld) [#/Vol] 0.00 10*3/uL Normal 0.0-0.4 [facility] Comment on above: Performed By: #### A NAX, IFX, PHEP, FKLLC, PE #### [address] [address] [employer]: Bala Skelton MD Eosinophils/100 WBC (Bld) 0 % Low 1-4 [facility] Comment on above: Performed By: #### A NAX, IFX, PHEP, FKLLC, PE #### [address] [address] [employer]: Bala Skelton MD Immature granulocytes/100 WBC (Bld) 1 % High 0 [facility] Comment on above: Performed By: #### A NAX, IFX, PHEP, FKLLC, PE #### [address] [address] [employer]: Bala Skelton MD Lymphocytes (Bld) [#/Vol] 0.46 10*3/uL Low 1.0-4.8 [facility] Comment on above: Performed By: #### A NAX, IFX, PHEP, FKLLC, PE #### [address] [address] [employer]: Bala Skelton MD Lymphocytes/100 WBC (Bld) 7 % Low 24-44 [facility] Comment on above: Performed By: #### A NAX, IFX, PHEP, FKLLC, PE #### [address] [address] [employer]: Bala Skelton MD Monocytes (Bld) [#/Vol] 0.33 10*3/uL Normal 0.1-0.8 [facility] Comment on above: Performed By: #### A NAX, IFX, PHEP, FKLLC, PE #### [address] [address] [employer]: Bala Skelton MD Monocytes/100 WBC (Bld) 5 % Normal 1-7 [facility] Comment on above: Performed By: #### A NAX, IFX, PHEP, FKLLC, PE #### [address] [address] [employer]: Bala Skelton MD Morphology Bran (Bld) [Interp] Normal Normal [facility] Comment on above: Performed By: #### A NAX, IFX, PHEP, FKLLC, PE #### [address] [address] [employer]: Bala Skelton MD Neutrophil (Seg) 87 % High 36-66 [facility] Comment on above: Performed By: #### A NAX, IFX, PHEP, FKLLC, PE #### [address] [address] [employer]: Bala Skelton MD Erythrocyte distribution width (RBC) [Ratio] 13.8 % Normal 11.8-14.4 [facility] Comment on above: Performed By: #### A NAX, IFX, PHEP, FKLLC, PE #### [address] [address] [employer]: Bala Skelton MD Hematocrit (Bld) [Volume fraction] 33.3 % Low 36.3-47.1 [facility] Comment on above: Performed By: #### A NAX, IFX, PHEP, FKLLC, PE #### [address] [address] [employer]: Bala Skelton MD Hemoglobin (Bld) [Mass/Vol] 11.0 g/dL Low 11.9-15.1 [facility] Comment on above: Performed By: #### A NAX, IFX, PHEP, FKLLC, PE #### [address] [address] [employer]: Bala Skelton MD MCH (RBC) [Entitic mass] 28.6 pg Normal 25.2-33.5 [facility] Comment on above: Performed By: #### A NAX, IFX, PHEP, FKLLC, PE #### [address] [address] [employer]: Bala Skelton MD MCHC (RBC) [Mass/Vol] 33.0 g/dL Normal 28.4-34.8 [facility] Comment on above: Performed By: #### A NAX, IFX, PHEP, FKLLC, PE #### [address] [address] [employer]: Bala Skelton MD MCV (RBC) [Entitic vol] 86.7 fL Normal 82.6-102.9 [facility] Comment on above: Performed By: #### A NAX, IFX, PHEP, FKLLC, PE #### [address] [address] [employer]: Bala Skelton MD NRBC Automated 0.0 per 100 WBC Normal 0.0 [facility] Comment on above: Performed By: #### A NAX, IFX, PHEP, FKLLC, PE #### [address] [address] [employer]: Bala Skelton MD Platelet Count See Reflexed IPF Result Normal 138-453 [facility] Comment on above: Performed By: #### A NAX, IFX, PHEP, FKLLC, PE #### [address] [address] [employer]: Bala Skelton MD RBC (Bld) [#/Vol] 3.84 10*6/uL Low 3.95-5.11 [facility] Comment on above: Performed By: #### A NAX, IFX, PHEP, FKLLC, PE #### [address] [address] [employer]: Bala Skelton MD WBC (Bld) [#/Vol] 6.6 10*3/uL Normal 3.5-11.3 [facility] Comment on above: Performed By: #### A NAX, IFX, PHEP, FKLLC, PE #### [address] [address] [employer]: Bala Skelton MD Abs. Basophil 0.00 k/uL Normal 0.0-0.2 [facility] Comment on above: Performed By: #### A NAX, IFX, PHEP, FKLLC, PE #### [place] [address] [employer]: Bala Skelton MD Abs.Imm.Granulocyte 0.10 k/uL Normal 0.00-0.30 [facility] Comment on above: Performed By: #### A NAX, IFX, PHEP, FKLLC, PE #### [address] [address] [employer]: Bala Skelton MD Abs.Neutrophil (Seg) 9.38 k/uL High 1.8-7.7 [facility] Comment on above: Performed By: #### A NAX, IFX, PHEP, FKLLC, PE #### [address] [address] [employer]: Bala Skelton MD Basophils/100 WBC (Bld) 0 % Normal 0-2 [facility] Comment on above: Performed By: #### A NAX, IFX, PHEP, FKLLC, PE #### [address] [address] [employer]: Bala Skelton MD Eosinophils (Bld) [#/Vol] 0.00 10*3/uL Normal 0.0-0.4 [facility] Comment on above: Performed By: #### A NAX, IFX, PHEP, FKLLC, PE #### [address] [address] [employer]: Bala Skelton MD Eosinophils/100 WBC (Bld) 0 % Low 1-4 [facility] Comment on above: Performed By: #### A NAX, IFX, PHEP, FKLLC, PE #### [place] [address] [employer]: Bala Skelton MD Immature granulocytes/100 WBC (Bld) 1 % High 0 [facility] Comment on above: Performed By: #### A NAX, IFX, PHEP, FKLLC, PE #### [place] [address] [employer]: Bala Skelton MD Lymphocytes (Bld) [#/Vol] 0.31 10*3/uL Low 1.0-4.8 [facility] Comment on above: Performed By: #### A NAX, IFX, PHEP, FKLLC, PE #### [place] [address] [employer]: Bala Skelton MD Lymphocytes/100 WBC (Bld) 3 % Low 24-44 [facility] Comment on above: Performed By: #### A NAX, IFX, PHEP, FKLLC, PE #### [address] [address] [employer]: Bala Skelton MD Monocytes (Bld) [#/Vol] 0.41 10*3/uL Normal 0.1-0.8 [facility] Comment on above: Performed By: #### A NAX, IFX, PHEP, FKLLC, PE #### [address] [address] [employer]: Bala Skelton MD Monocytes/100 WBC (Bld) 4 % Normal 1-7 [facility] Comment on above: Performed By: #### A NAX, IFX, PHEP, FKLLC, PE #### [address] [address] [employer]: Bala Skelton MD Morphology Bran (Bld) [Interp] Normal Normal [facility] Comment on above: Performed By: #### A NAX, IFX, PHEP, FKLLC, PE #### [address] [address] [employer]: Bala Skelton MD Neutrophil (Seg) 92 % High 36-66 [facility] Comment on above: Performed By: #### A NAX, IFX, PHEP, FKLLC, PE #### [address] [address] [employer]: Bala Skelton MD Erythrocyte distribution width (RBC) [Ratio] 13.6 % Normal 11.8-14.4 [facility] Comment on above: Performed By: #### A NAX, IFX, PHEP, FKLLC, PE #### [address] [address] [employer]: Bala Skelton MD Hematocrit (Bld) [Volume fraction] 32.4 % Low 36.3-47.1 [facility] Comment on above: Performed By: #### A NAX, IFX, PHEP, FKLLC, PE #### [address] [address] [employer]: Bala Skelton MD Hemoglobin (Bld) [Mass/Vol] 11.0 g/dL Low 11.9-15.1 [facility] Comment on above: Performed By: #### A NAX, IFX, PHEP, FKLLC, PE #### [address] [phone] [employer]: Bala Skelton MD MCH (RBC) [Entitic mass] 29.4 pg Normal 25.2-33.5 [facility] Comment on above: Performed By: #### A NAX, IFX, PHEP, FKLLC, PE #### [address] [address] [employer]: Bala Skelton MD MCHC (RBC) [Mass/Vol] 34.0 g/dL Normal 28.4-34.8 [facility] Comment on above: Performed By: #### A NAX, IFX, PHEP, FKLLC, PE #### [place] [address] [employer]: Bala Skelton MD MCV (RBC) [Entitic vol] 86.6 fL Normal 82.6-102.9 [facility] Comment on above: Performed By: #### A NAX, IFX, PHEP, FKLLC, PE #### [place] [phone] [employer]: Bala Skelton MD NRBC Automated 0.0 per 100 WBC Normal 0.0 [facility] Comment on above: Performed By: #### A NAX, IFX, PHEP, FKLLC, PE #### [address] [phone] [employer]: Bala Skelton MD Platelet mean volume (Bld) [Entitic vol] 10.4 fL Normal 8.1-13.5 [facility] Comment on above: Performed By: #### A NAX, IFX, PHEP, FKLLC, PE #### [address] [address] [employer]: Bala Skelton MD Platelets (Bld) [#/Vol] 252 10*3/uL Normal 138-453 [facility] Comment on above: Performed By: #### A NAX, IFX, PHEP, FKLLC, PE #### [address] [address] [employer]: Bala Skelton MD RBC (Bld) [#/Vol] 3.74 10*6/uL Low 3.95-5.11 [facility] Comment on above: Performed By: #### A NAX, IFX, PHEP, FKLLC, PE #### [address] [address] [employer]: Bala Skelton MD WBC (Bld) [#/Vol] 10.2 10*3/uL Normal 3.5-11.3 [facility] Comment on above: Performed By: #### A NAX, IFX, PHEP, FKLLC, PE #### [address] [address] [employer]: Bala Skelton MD Abs. Basophil 0.00 k/uL Normal 0.0-0.2 [facility] Comment on above: Performed By: #### A NAX, IFX, PHEP, FKLLC, PE #### [address] [address] [employer]: Bala Skelton MD Abs.Imm.Granulocyte 0.12 k/uL Normal 0.00-0.30 [facility] Comment on above: Performed By: #### A NAX, IFX, PHEP, FKLLC, PE #### [address] [address] [employer]: Bala Skelton MD Abs.Neutrophil (Seg) 11.57 k/uL High 1.8-7.7 [facility] Comment on above: Performed By: #### A NAX, IFX, PHEP, FKLLC, PE #### [address] [address] [employer]: Bala Skelton MD Basophils/100 WBC (Bld) 0 % Normal 0-2 [facility] Comment on above: Performed By: #### A NAX, IFX, PHEP, FKLLC, PE #### [address] [address] [employer]: Bala Skelton MD Eosinophils (Bld) [#/Vol] 0.12 10*3/uL Normal 0.0-0.4 [facility] Comment on above: Performed By: #### A NAX, IFX, PHEP, FKLLC, PE #### [address] [address] [employer]: Bala Skelton MD Eosinophils/100 WBC (Bld) 1 % Normal 1-4 [facility] Comment on above: Performed By: #### A NAX, IFX, PHEP, FKLLC, PE #### [address] [address] [employer]: Bala Skelton MD Immature granulocytes/100 WBC (Bld) 1 % High 0 [facility] Comment on above: Performed By: #### A NAX, IFX, PHEP, FKLLC, PE #### [address] [address] [employer]: Bala Skelton MD Lymphocytes (Bld) [#/Vol] 0.49 10*3/uL Low 1.0-4.8 [facility] Comment on above: Performed By: #### A NAX, IFX, PHEP, FKLLC, PE #### [address] [address] [employer]: Bala Skelton MD Lymphocytes/100 WBC (Bld) 4 % Low 24-44 [facility] Comment on above: Performed By: #### A NAX, IFX, PHEP, FKLLC, PE #### [address] [address] [employer]: Bala Skelton MD Monocytes (Bld) [#/Vol] 0.00 10*3/uL Low 0.1-0.8 [facility] Comment on above: Performed By: #### A NAX, IFX, PHEP, FKLLC, PE #### [place] [address] [employer]: Bala Skelton MD Monocytes/100 WBC (Bld) 0 % Low 1-7 [facility] Comment on above: Performed By: #### A NAX, IFX, PHEP, FKLLC, PE #### [place] [address] [employer]: Bala Skelton MD Morphology Bran (Bld) [Interp] Normal Normal [facility] Comment on above: Performed By: #### A NAX, IFX, PHEP, FKLLC, PE #### [place] [address] [employer]: Bala Skelton MD Neutrophil (Seg) 94 % High 36-66 [facility] Comment on above: Performed By: #### A NAX, IFX, PHEP, FKLLC, PE #### [place] [address] [employer]: Bala Skelton MD Erythrocyte distribution width (RBC) [Ratio] 13.5 % Normal 11.8-14.4 [facility] Comment on above: Performed By: #### A NAX, IFX, PHEP, FKLLC, PE #### [address] [address] [employer]: Bala Skelton MD Hematocrit (Bld) [Volume fraction] 31.3 % Low 36.3-47.1 [facility] Comment on above: Performed By: #### A NAX, IFX, PHEP, FKLLC, PE #### [address] [address] [employer]: Bala Skelton MD Hemoglobin (Bld) [Mass/Vol] 10.6 g/dL Low 11.9-15.1 [facility] Comment on above: Performed By: #### A NAX, IFX, PHEP, FKLLC, PE #### [address] [address] [employer]: Bala Skelton MD MCH (RBC) [Entitic mass] 29.3 pg Normal 25.2-33.5 [facility] Comment on above: Performed By: #### A NAX, IFX, PHEP, FKLLC, PE #### [address] [address] [employer]: Bala Skelton MD MCHC (RBC) [Mass/Vol] 33.9 g/dL Normal 28.4-34.8 [facility] Comment on above: Performed By: #### A NAX, IFX, PHEP, FKLLC, PE #### [address] [address] [employer]: Bala Skelton MD MCV (RBC) [Entitic vol] 86.5 fL Normal 82.6-102.9 [facility] Comment on above: Performed By: #### A NAX, IFX, PHEP, FKLLC, PE #### [address] [phone] [employer]: Bala Skelton MD NRBC Automated 0.0 per 100 WBC Normal 0.0 [facility] Comment on above: Performed By: #### A NAX, IFX, PHEP, FKLLC, PE #### [facility] [employer] [address] [place] [phone] [employer]: Bala Skelton MD Platelet mean volume (Bld) [Entitic vol] 10.2 fL Normal 8.1-13.5 [facility] Comment on above: Performed By: #### A NAX, IFX, PHEP, FKLLC, PE #### [facility] [employer] [address] [place] [phone] [employer]: Bala Skelton MD Platelets (Bld) [#/Vol] 280 10*3/uL Normal 138-453 [facility] Comment on above: Performed By: #### A NAX, IFX, PHEP, FKLLC, PE #### [facility] [employer] [address] [place] [phone] [employer]: Bala Skelton MD RBC (Bld) [#/Vol] 3.62 10*6/uL Low 3.95-5.11 [facility] Comment on above: Performed By: #### A NAX, IFX, PHEP, FKLLC, PE #### [address] [phone] [employer]: Bala Skelton MD WBC (Bld) [#/Vol] 12.3 10*3/uL High 3.5-11.3 [facility] Comment on above: Performed By: #### A NAX, IFX, PHEP, FKLLC, PE #### [facility] [employer] [address] [place] [phone] [employer]: Bala Skelton MD CREATININE, RANDOM URINEon 0 07-20-2022 Creatinine, Ur 67.5 mg/dL 28 - 217 mg/dL [facility] CULTURE URINEon 07-20-2022 CULTURE URINE Isolate 1 Escherichia coli >100,000 cfu/mL of ORGANISM 1 Escherichia coli ANTIBIOTIC M.I.C RX STATUS Ampicillin <=2 S F Ampicillin/Sulbactam <=2 S F Piperacillin/Tazobactam <=4 S F Cefazolin <=4 S F Ceftazidime <=1 S F Ceftriaxone <=1 S F Ertapenem <=0.5 S F Imipenem <=0.25 S F Amikacin <=2 S F Gentamicin <=1 S F Tobramycin <=1 S F Ciprofloxacin <=0.25 S F Levofloxacin <=0.12 S F Nitrofurantoin <=16 S F Trimethoprim/Sulfamethox azole <=20 S F Normal [facility] Comment on above: Performed By: #### U MICRO, ERUR #### [facility] [address] [place] [address] Dr. Delmer Rea Chloride, Random Urineon Chloride, Ur 50 mmol/L [facility] Comment on above: No normal range esta blished. Chloride,Random Uron 022 Chloride [Moles/Vol] 50 mmol/L Normal [facility] Comment on above: Result Comment: No n ormal range established. Performed By: #### A NAX, IFX, PHEP, FKLLC, PE #### [employer] [address] [place] [phone] [employer]: Bala Skelton MD Creatinine, Random Urineon 0 07-20-2022 Creatinine, Ur 76.5 mg/dL 28 - 217 mg/dL [facility] Creatinine,Random Uron 07-20 Creatinine [Mass/Vol] 67.5 mg/dL Normal 28.0-217.0 [facility] Comment on above: Performed By: #### B C #### [facility] [address] [place], [place] [id number] [employer]: Bala Skelton MD Creatinine [Mass/Vol] 76.5 mg/dL Normal 28.0-217.0 [facility] Comment on above: Performed By: #### A NAX, IFX, PHEP, FKLLC, PE #### [facility] [address] [place] [address] [employer]: Bala Skelton MD EKG 12 LeadOrdered By: Cheryl Domínguez on 07-20-2022 Atrial Rate 105 BPM [employer] [employer] Work Phone: [phone] P [place] 8 degrees [facility] [employer] Work Phone: [phone] P-R Interval 136 ms [employer] Work Phone: [phone] Q-T Interval 344 ms [employer] [employer] Work Phone: [phone] QRS Duration 84 ms [facility] [employer] Work Phone: [phone] QTc Calculation (Bazett) 454 ms [facility] [employer] Work Phone: [phone] R [place] -15 degrees [employer] Work Phone: [phone] T [place] 13 degrees [facility]ON [employer] Work Phone: [phone] Ventricular Rate 105 BPM [facility] [employer] [employer] Work Phone: [phone] BON [employer] Work Phone: [phone] EKG 12 [place] 07-20-2022 Sinus tachycardia Septal infarct (cited on or before 20-JUL-2022) Abnormal ECG When compared with ECG of 20-JUL-2022 05:40, No significant change was found [facility] Julien Jarrett MD - 07/20/2022 Sinus tachycardia Septal infarct (cited on or before 20-JUL-2022) Abnormal ECG When compared with ECG of 20-JUL-2022 05:40, No significant change was found [employer] Work Phone: Free Pennock + Lambdaon 2021 Free Pennock Lt Chains 2.91 mg/dL High 0.37-1.94 [facility] Comment on above: Performed By: #### A NAX, IFX, PHEP, FKLLC, PE #### [facility] [address] [place], [place] [phone] [employer]: Bala Skelton MD Free Pennock/Lambda Rat 1.67 High 0.26-1.65 [facility] Comment on above: Performed By: #### A NAX, IFX, PHEP, FKLLC, PE #### [facility] [address] [place], [place] [phone] [employer]: Bala Skelton MD Free Lambda Lt Chains 1.74 mg/dL Normal 0.57-2.63 [facility] Comment on above: Performed By: #### A NAX, IFX, PHEP, FKLLC, PE #### [facility] [address] [place], [place] [phone] [employer]: Bala Skelton MD Immature Platelet Fractionon 07-20-2022 Platelet, Fluorescence Platelet clumps present, count appears adequate. [facility] Pennock/Lambda Quantitative Fr ee Light Chains, Serumon 07-20-2022 Free Pennock/Lambda Ratio 1.67 High 0.26 - 1.65 [facility] Interpretation and review of laboratory results Abnormal [facility] Pennock Free Light Chains QNT 2.91 mg/dL High 0.37 - 1.94 mg/dL [facility] Lambda Free Light Chains QNT 1.74 mg/dL 0.57 - 2.63 mg/dL [facility] Lactate, Sepsison 07-20-2022 Lactic Acid,Sep Wbld 3.8 mmol/L High 0.5-1.9 [facility] Comment on above: Performed By: #### B C #### [facility] [employer] [address] [place] [phone] [employer]: Bala Skelton MD Interpretation and review of laboratory results Abnormal [facility] Lactic Acid, Sepsis, Whole Blood 3.8 mmol/L High 0.5 - 1.9 mmol/L [facility] Lactic Acidon 07-20-2022 Lactic Acid,Whole Bl 2.0 mmol/L Normal 0.7-2.1 [facility] Comment on above: Performed By: #### B C #### [facility] [address] [place], [place] [phone] [employer]: Bala Skelton MD Lactic Acid, Whole Blood 2.0 mmol/L 0.7 - 2.1 mmol/L [facility] No Panel Informationon 07-20 [facility] Interpretation and review of laboratory results Abnormal [facility] PLT, Immature Fract.on 07-20 Platelet, Fluoresc. Platelet clumps pres ent, count appears adequate. Normal 138-453 [facility] Comment on above: Performed By: #### A NAX, IFX, PHEP, FKLLC, PE #### [facility] [place], [place] [phone] [employer]: Bala Skelton MD POC Glucose Fingerstickon Glucose [Mass/Vol] 145 mg/dL High 65 - 105 mg/dL [facility] Interpretation and review of laboratory results Abnormal [facility] Glucose [Mass/Vol] 231 mg/dL High 65 - 105 mg/dL [facility] Interpretation and review of laboratory results Abnormal [facility] Glucose [Mass/Vol] 393 mg/dL High 65 - 105 mg/dL [facility] Interpretation and review of laboratory results Abnormal [facility] Glucose [Mass/Vol] 405 mg/dL Critically high 65 - 1 05 mg/dL [facility] Comment on above: Critical Noted Interpretation and review of laboratory results Abnormal [facility] Glucose [Mass/Vol] 375 mg/dL High 65 - 105 mg/dL [facility] Interpretation and review of laboratory results Abnormal [facility] Glucose [Mass/Vol] 415 mg/dL Critically high 65 - 1 05 mg/dL [facility] Interpretation and review of laboratory results Abnormal [facility] Procalcitoninon 07-20-2022 Procalcitonin 48.54 ng/mL High <0.09 [facility] Comment on above: Result Comment: Suspected Sepsis: <0.50 ng/mL Low likelihood of sepsis. 0.50-2.00 ng/mL Increased likelihood of sepsis. Antibiotics encouraged. >2.00 ng/mL High risk of sepsis/shock. Antibiotics strongly encouraged. Suspected Lower Resp Tract Infections: <0.24 ng/mL Low likelihood of bacterial infection. >0.24 ng/mL Increased likelihood of bacterial infection. Antibiotics encouraged. With successful antibiotic therapy, PCT levels should decrease rapidly. (Half-life of 24 to 36 hours.) Procalcitonin values from samples collected within the first 6 hours of systemic infection may still be low. Retesting may be indicated. Values from day 1 and day 4 can be entered into the Change in Procalcitonin Calculator (www.qpfnor-khw-mdyxgeljyz.[facility]) to determine the patient's Mortality Risk Prognosis In healthy neonates, plasma Procalcitonin (PCT) concentrations increase gradually after , reaching peak values at about 24 hours of age then decrease to normal values below 0.5 ng/mL by 48-72 hours of age. Performed By: #### A NAX, IFX, PHEP, FKLLC, PE #### [facility] [employer] [facility] [place] [phone] [employer]: Bala Skelton MD Interpretation and review of laboratory results Abnormal [facility] Procalcitonin 48.54 ng/mL High NINF - 0.09 ng/mL [facility] Comment on above: Suspected Sepsis: <0.50 ng/mL Low likelihood of sepsis. 0.50-2.00 ng/mL Increased likelihood of sepsis. Antibiotics encouraged. >2.00 ng/mL High risk of sepsis/shock. Antibiotics strongly encouraged. Suspected Lower Resp Tract Infections: <0.24 ng/mL Low likelihood of bacterial infection. >0.24 ng/mL Increased likelihood of bacterial infection. Antibiotics encouraged. With successful antibiotic therapy, PCT levels should decrease rapidly. (Half-life of 24 to 36 hours.) Procalcitonin values from samples collected within the first 6 hours of systemic infection may still be low. Retesting may be indicated. Values from day 1 and day 4 can be entered into the Change in Procalcitonin Calculator (www.ltgbyx-odv-xjzokgiqqf.com) to determine the patient's Mortality Risk Prognosis In healthy neonates, plasma Procalcitonin (PCT) concentrations increase gradually after , reaching peak values at about 24 hours of age then decrease to normal values below 0.5 ng/mL by 48-72 hours of age. [facility] Prot. Electroph, Blon 2021 Protein [Mass/Vol] 6.3 g/dL Low 6.4-8.3 [facility] Comment on above: Performed By: #### A NAX, IFX, PHEP, FKLLC, PE #### [facility] [address] [place] [address] [employer]: Bala Skelton MD Prot. Electrophoresis, Uron 07-20-2022 Type of Specimen .URINE Normal [facility] Comment on above: Performed By: #### A NAX, IFX, PHEP, FKLLC, PE #### [facility] [address] [place] [address] [employer]: Bala Skelton MD Protein / creatinine ratio, urineon 07-20-2022 Creatinine, Ur 75.7 mg/dL 28 - 217 mg/dL [facility] Interpretation and review of laboratory results Abnormal [facility] Protein (U) [Mass/Vol] 145 mg/dL [facility] Comment on above: No normal range esta blished. Urine Total Protein Creatinine Ratio 1.92 High 0 - 0.2 [facility] Protein, urine, randomon Protein (U) [Mass/Vol] 144 mg/dL [facility] Comment on above: No normal range esta blished. Protein,Tot,[place] Uron 2021 Creatinine [Mass/Vol] 75.7 mg/dL Normal 28.0-217.0 [facility] Comment on above: Performed By: #### A NAX, IFX, PHEP, FKLLC, PE #### [facility] [address] [place] [phone] [employer]: Bala Skelton MD Tot Prot. Conc. 145 mg/dL Normal [facility] Comment on above: Result Comment: No n ormal range established. Performed By: #### A NAX, IFX, PHEP, FKLLC, PE #### [facility] [address] [place] [phone] [employer]: Bala Skelton MD Tot Prot. Conc. 144 mg/dL Normal [facility] Comment on above: Result Comment: No n ormal range established. Performed By: #### A NAX, IFX, PHEP, FKLLC, PE #### [facility] [employer] [address] [place] [address] [employer]: Bala Skelton MD TP/Cre Ratio 1.92 High 0.00-0.20 [facility] Comment on above: Performed By: #### A NAX, IFX, PHEP, FKLLC, PE #### [facility] [address] [place] [phone] [employer]: Bala Skelton MD SODIUM, URINE, RANDOMon 07-07 Sodium (U) [Moles/Vol] mmol/L mmol/L [facility] Comment on above: No normal range esta blished. [facility] Sodium, Random Uron 07-20-20 22 Na Conc. Urine <20 Normal [facility] Comment on above: Result Comment: No n ormal range established. Performed By: #### B C #### [facility] [employer] [address] [place] [address] [employer]: Bala Skelton MD Sodium (U) [Moles/Vol] 26 mmol/L Normal [facility] Comment on above: Result Comment: No n ormal range established. Performed By: #### A NAX, IFX, PHEP, FKLLC, PE #### [facility] [address] [place] [address] [employer]: Bala Skelton MD Sodium, urine, randomon 07-07 Sodium (U) [Moles/Vol] 26 mmol/L [facility] Comment on above: No normal range esta blished. US RETROPERITONEAL LIMITEDon 07-20-2022 US RETROPERITONEAL LIMITED EXAMINATION: ULTRASOUND OF THE KIDNEYS 07/20/2022 9:31 am COMPARISON: 07/18/2022, CT renal stone protocol HISTORY: ORDERING SYSTEM PROVIDED HISTORY: OMAR TECHNOLOGIST PROVIDED HISTORY: Bilateral Renal Ultrasound OMAR 51-year-old female with acute kidney injury FINDINGS: Right kidney measures 12.9 x 8.1 x 7.4 cm. Right renal cortical thickness measures 1.4 cm. 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 Left kidney measures 10.8 x 5.9 x 5.3 cm. Left renal cortical thickness measures 1.2 cm. Equivocal dilatation of the upper pole left kidney. No overt hydronephrosis or perinephric fluid. Gross preservation of the bilateral corticomedullary differentiation. Possible nephrostomy at the lower pole left kidney. IMPRESSION: 1. Possible nephrostomy at the lower pole left kidney. Correlate with any recent instrumentation. 2. Equivocal dilatation of the upper pole left kidney. No overt hydronephrosis. 3. 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 RECOMMENDATIONS: Unavailable Interpreted by: Femi Enamorado MD Signed by: Femi Enamorado MD 07/20/22 Final result Normal [facility] 1. 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 Correlate with any recent instrumentation. 2. Equivocal dilatation of the upper pole left kidney. No overt hydronephrosis. 3. 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 RECOMMENDATIONS: Unavailable [facility] RIS CONSOLIDATED EXAMINATION: ULTRASOUND OF THE KIDNEYS 07/20/2022 9:31 am COMPARISON: 07/18/2022, CT renal stone protocol HISTORY: ORDERING SYSTEM PROVIDED HISTORY: OMAR TECHNOLOGIST PROVIDED HISTORY: Bilateral Renal Ultrasound OMAR 51-year-old female with acute kidney injury FINDINGS: Right kidney measures 12.9 x 8.1 x 7.4 cm. Right renal cortical thickness measures 1.4 cm. 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 Left kidney measures 10.8 x 5.9 x 5.3 cm. Left renal cortical thickness measures 1.2 cm. Equivocal dilatation of the upper pole left kidney. No overt hydronephrosis or perinephric fluid. Gross preservation of the bilateral corticomedullary differentiation. Possible nephrostomy at the lower pole left kidney. [facility] RIS SAVANNAH Enamorado, Femi Estrada MD - 07/20/2022 EXAMINATION: ULTRASOUND OF THE KIDNEYS 07/20/2022 9:31 am COMPARISON: 07/18/2022, CT renal stone protocol HISTORY: ORDERING SYSTEM PROVIDED HISTORY: OMAR TECHNOLOGIST PROVIDED HISTORY: Bilateral Renal Ultrasound OMAR 51-year-old female with acute kidney injury FINDINGS: Right kidney measures 12.9 x 8.1 x 7.4 cm. Right renal cortical thickness measures 1.4 cm. 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 Left kidney measures 10.8 x 5.9 x 5.3 cm. Left renal cortical thickness measures 1.2 cm. Equivocal dilatation of the upper pole left kidney. No overt hydronephrosis or perinephric fluid. Gross preservation of the bilateral corticomedullary differentiation. Possible nephrostomy at the lower pole left kidney. IMPRESSION: 1. Possible nephrostomy at the lower pole left kidney. Correlate with any recent instrumentation. 2. Equivocal dilatation of the upper pole left kidney. No overt hydronephrosis. 3. 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 RECOMMENDATIONS: Unavailable [employer] Phone: Radiology Study observation (narrative) [employer] Phone: US RETROPERITONEAL LIMITEDOr dered By: Femi Enamorado on 07-20-2022 [employer] Phone: Urinalysis w/ Microon 2021 Epithelial cells LM Ql (Urine sed) 0 TO 2 Normal 0-5 [facility] Comment on above: Performed By: #### A NAX, IFX, PHEP, FKLLC, PE #### [address] [address] [employer]: Bala Skelton MD Urine RBC's TOO NUMEROUS TO COUNT Normal 0-2 [facility] Comment on above: Performed By: #### A NAX, IFX, PHEP, FKLLC, PE #### [address] [address] [employer]: Bala Skelton MD Urine WBC's 10 TO 20 Normal 0-5 [facility] Comment on above: Performed By: #### A NAX, IFX, PHEP, FKLLC, PE #### [address] [address] [employer]: Bala Skelton MD Bilirubin, SemiQt,Ur Negative Normal NEG [facility] Comment on above: Performed By: #### A NAX, IFX, PHEP, FKLLC, PE #### [address] [address] [employer]: Bala Skelton MD Blood, Urine LARGE Abnormal NEG [facility] Comment on above: Performed By: #### A NAX, IFX, PHEP, FKLLC, PE #### [address] [address] [employer]: Bala Skelton MD Clarity (U) Cloudy Abnormal CLEAR [facility] Comment on above: Performed By: #### A NAX, IFX, PHEP, FKLLC, PE #### [address] [address] [employer]: Bala Skelton MD Color (U) [place] Abnormal YEL [facility] Comment on above: Result Comment: INTE RPRET WITH CAUTION DUE TO INTENSE COLOR OF URINE. Performed By: #### A NAX, IFX, PHEP, FKLLC, PE #### [facility] [address] [place] [phone] [employer]: Bala Skelton MD Glucose Ql (U) 3+ Abnormal NEG [facility] Comment on above: Performed By: #### A NAX, IFX, PHEP, FKLLC, PE #### [address] [address] [employer]: Bala Skelton MD Ketones Ql (U) Negative Normal NEG [facility] Comment on above: Performed By: #### A NAX, IFX, PHEP, FKLLC, PE #### [address] [address] [employer]: Bala Skelton MD Leukocyte esterase Test strip Ql (U) MODERATE Abnormal NEG [facility] Comment on above: Performed By: #### A NAX, IFX, PHEP, FKLLC, PE #### [address] [address] [employer]: Bala Skelton MD Nitrite,Ur Negative Normal NEG [facility] Comment on above: Performed By: #### A NAX, IFX, PHEP, FKLLC, PE #### [address] [address] [employer]: Bala Skelton MD PH,Ur 5.0 Normal 5.0-8.0 [facility] Comment on above: Performed By: #### A NAX, IFX, PHEP, FKLLC, PE #### [address] [address] [employer]: Bala Skelton MD Protein Ql (U) 2+ Abnormal NEG [facility] Comment on above: Performed By: #### A NAX, IFX, PHEP, FKLLC, PE #### [facility] [employer] [address] [place] [phone] [employer]: Bala Skelton MD Spec. [place],Ur 1.022 Normal 1.005-1.030 [facility] Comment on above: Performed By: #### A NAX, IFX, PHEP, FKLLC, PE #### [facility] [address] [place] [address] [employer]: Bala Skelton MD Urobilinogen,Ur Normal Normal NORM [facility] Comment on above: Performed By: #### A NAX, IFX, PHEP, FKLLC, PE #### [facility] [address] [place] [address] [employer]: Bala Skelton MD Urinalysis with Microscopico n 07-20-2022 Bilirubin Urine Negative NEGATIVE [facility] Color, UA [place] Abnormal Yellow [facility] Comment on above: INTERPRET WITH CAUTI ON DUE TO INTENSE COLOR OF URINE. Epithelial Cells UA 0 TO 2 [facility] Glucose, Ur 3+ Abnormal NEGATIVE [facility] Interpretation and review of laboratory results Abnormal [facility] Ketones Ql (U) Negative NEGATIVE [facility] Leukocyte esterase Test strip Ql (U) MODERATE Abnormal NEGATIVE [facility] Nitrite, Urine Negative NEGATIVE [facility] pH, UA 5.0 5 - 8 [facility] Protein, UA 2+ Abnormal NEGATIVE [facility] RBC, UA TOO NUMEROUS TO COUNT [facility] Specific [place], UA 1.022 1.005 - 1.03 [facility] Turbidity UA Cloudy Abnormal Clear [facility] Urine Hgb LARGE Abnormal NEGATIVE [facility] Urobilinogen, Urine Normal Normal [facility] WBC, UA 10 TO 20 [facility] Venous Blood Gaseson 022 Body Temp. 37.0 Normal [facility] Comment on above: Performed By: #### V BG #### [facility] [address] [place], [place] [phone] [employer]: Bala Skelton MD Carboxy Hgb 1.4 % Normal 0-5 [facility] Comment on above: Result Comment: Reference Range: Non-Smokers 0-2% Average Smoker 2-4% Heavy Smoker <10% Performed By: #### V BG #### [address] [address] [employer]: Bala Skelton MD FIO2 INFORMATION NOT PROVIDED Normal [facility] Comment on above: Performed By: #### V BG #### [facility] [employer] [address] [place] [phone] [employer]: Bala Skelton MD HCO3 (Bld) [Moles/Vol] 19.6 mmol/L Low 24-30 [facility] Comment on above: Performed By: #### V BG #### [address] [address] [employer]: Bala Skelton MD Negative Base Excess 5.6 mmol/L High 0.0-2.0 [facility] Comment on above: Performed By: #### V BG #### [address] [address] [employer]: Bala Skelton MD Oxygen (Bld) [Partial pressure] 36.9 mm[Hg] Normal 30-50 [facility] Comment on above: Performed By: #### V BG #### [facility] [employer] [address] [place] [phone] [employer]: Bala Skelton MD Oxygen saturation in Blood 74.4 % Normal 60.0-85.0 [facility] Comment on above: Performed By: #### V BG #### [facility] [employer] [address] [place] [phone] [employer]: Bala Skelton MD pCO2 39.5 Normal 39-55 [facility] Comment on above: Performed By: #### V BG #### [facility] [employer] [address] [place] [address] [employer]: Bala Skelton MD pH (Bld) 7.316 [pH] Low 7.320-7.420 [facility] Comment on above: Performed By: #### V #### [facility] [address] [place] [address] [employer]: Bala Skelton MD XR CHEST PORTABLEon 07-20-20 XR CHEST PORTABLE EXAMINATION: ONE X-RAY VIEW OF THE CHEST 07/20/2022 6:31 am COMPARISON: None. HISTORY: ORDERING SYSTEM PROVIDED HISTORY: consolidation TECHNOLOGIST PROVIDED HISTORY: Consolidation FINDINGS: Heart size is mildly prominent, and there is mild vascular congestion. There are minimal patchy opacities at the lung bases, which may be related to atelectasis. No dense airspace consolidation. No pneumothorax or pleural effusion. IMPRESSION: 1. Mild vascular congestion. 2. Minimal patchy opacities at the lung bases, possibly related to atelectasis. No dense airspace consolidation. Interpreted by: Ricarda Orozco DO Signed by: Ricarda Orozco DO 07/20/22 Final result Normal [facility] 1. Mild vascular congestion. 2. Minimal patchy opacities at the lung bases, possibly related to atelectasis. No dense airspace consolidation. PN RIS CONSOLIDATED EXAMINATION: ONE X-RAY VIEW OF THE CHEST 07/20/2022 6:31 am COMPARISON: None. HISTORY: ORDERING SYSTEM PROVIDED HISTORY: consolidation TECHNOLOGIST PROVIDED HISTORY: Consolidation FINDINGS: Heart size is mildly prominent, and there is mild vascular congestion. There are minimal patchy opacities at the lung bases, which may be related to atelectasis. No dense airspace consolidation. No pneumothorax or pleural effusion. PN RIS CONSOLIDATED Ricarda Orozco DO - 07/20/2022 EXAMINATION: ONE X-RAY VIEW OF THE CHEST 07/20/2022 6:31 am COMPARISON: None. HISTORY: ORDERING SYSTEM PROVIDED HISTORY: consolidation TECHNOLOGIST PROVIDED HISTORY: Consolidation FINDINGS: Heart size is mildly prominent, and there is mild vascular congestion. There are minimal patchy opacities at the lung bases, which may be related to atelectasis. No dense airspace consolidation. No pneumothorax or pleural effusion. IMPRESSION: 1. Mild vascular congestion. 2. Minimal patchy opacities at the lung bases, possibly related to atelectasis. No dense airspace consolidation. [facility] [employer] Work Phone: Radiology Study observation (narrative) [facility] [employer] Phone: XR CHEST PORTABLEOrdered By: Ricarda Orozco on 07-20-2022 [facility] [employer] Phone: Basic Metab w/rfx MGon 07-19 (cont.) Normal [facility] Comment on above: Result Comment: Aver age GFR for 50-59 years old: 93 mL/min/1.73sq m Chronic Kidney Disease: <60 mL/min/1.73sq m Kidney failure: <15 mL/min/1.73sq m eGFR calculated using average adult body mass. Additional eGFR calculator available at: http://www.[employer]/multiple_crcl_2011.htm Performed By: #### B MPX, CDP #### [facility] [address] [place] [phone] [employer]: Bala Skelton MD Anion gap [Moles/Vol] 14 mmol/L Normal 9-17 [facility] Comment on above: Performed By: #### B MPX, CDP #### [facility] [address] [place] [address] [employer]: Bala Skelton MD Calcium [Mass/Vol] 8.3 mg/dL Low 8.6-10.4 [facility] Comment on above: Performed By: #### B MPX, CDP #### [facility] [address] [place] [address] [employer]: Bala Skelton MD Chloride [Moles/Vol] 98 mmol/L Normal 98-107 [facility] Comment on above: Performed By: #### B MPX, CDP #### [facility] [address] [place] [address] [employer]: Bala Skelton MD CO2 [Moles/Vol] 19 mmol/L Low 20-31 [facility] Comment on above: Performed By: #### B MPX, CDP #### [facility] [address] [place] [phone] [employer]: Bala Skelton MD Creatinine [Mass/Vol] 1.71 mg/dL High 0.50-0.90 [facility] Comment on above: Performed By: #### B MPX, CDP #### [facility] [address] [place] [address] [employer]: Bala Skelton MD GFR, Amer 38 mL/min Low >60 [facility] Comment on above: Performed By: #### B MPX, CDP #### [facility] [address] [place] [address] [employer]: Bala Skelton MD GFR,non Amer 32 mL/min Low >60 [facility] Comment on above: Performed By: #### B MPX, CDP #### [facility] [address] [place] [phone] [employer]: Bala Skelton MD Glucose [Mass/Vol] 263 mg/dL High 70-99 [facility] Comment on above: Performed By: #### B MPX, CDP #### [facility] [address] [place] [phone] [employer]: Bala Skelton MD Potassium [Moles/Vol] 4.0 mmol/L Normal 3.7-5.3 [facility] Comment on above: Performed By: #### B MPX, CDP #### [facility] [address] [place] [phone] [employer]: Bala Skelton MD Sodium [Moles/Vol] 131 mmol/L Low 135-144 [facility] Comment on above: Performed By: #### B MPX, CDP #### [facility] [address] [place], [place] [phone] [employer]: Bala Skelton MD Urea nitrogen [Mass/Vol] 38 mg/dL High 6-20 [facility] Comment on above: Performed By: #### B EUN, CDP #### [facility] [address] [place], [place] [phone] [employer]: Bala Skelton MD Basic Metabolic Panel w/ Ref romulo to MGon 07-19-2022 Anion gap [Moles/Vol] 14 mmol/L 9 - 17 mmol/L [facility] Calcium [Mass/Vol] 8.3 mg/dL Low 8.6 - 10. 4 mg/dL [facility] Chloride [Moles/Vol] 98 mmol/L 98 - 107 mmol/L [facility] [employer] CO2 [Moles/Vol] 19 mmol/L Low 20 - 31 mmol/L [facility] Creatinine [Mass/Vol] 1.71 mg/dL High 0.5 - 0.9 mg/dL [facility] GFR 38 mL/min Low 60 - PINF mL/min [facility] GFR Non- 32 mL/min Low 60 - PINF mL/min [facility] GFR/1.73 sq M.predicted MDRD (S/P/Bld) [Vol rate/Area] [facility] Comment on above: Average GFR for 50-5 9 years old: 93 mL/min/1.73sq m Chronic Kidney Disease: <60 mL/min/1.73sq m Kidney failure: <15 mL/min/1.73sq m eGFR calculated using average adult body mass. Additional eGFR calculator available at: http://www.IndaBox.[facility]M [facility]/multiple_crcl_2012.htm Glucose [Mass/Vol] 263 mg/dL High 70 - 99 mg/dL [facility] Interpretation and review of laboratory results Abnormal [facility] [employer] Potassium [Moles/Vol] 4.0 mmol/L 3.7 - 5.3 mmol/L [facility] Sodium [Moles/Vol] 131 mmol/L Low 135 - 144 mmol/L [facility] Urea nitrogen (BldV) [Mass/Vol] 38 mg/dL High 6 - 20 mg/dL [facility] CBC with Auto Differentialon 07-19-2022 Absolute Eos # 0.16 [place] [facility] Absolute Immature Granulocyte 0.05 [facility] Absolute Lymph # 2.34 [facility] SECO URS [facility] Absolute [place] # 0.64 [facility] RS [facility] Basophils (Bld) [#/Vol] 0.03 10*3/uL [facility] Basophils/100 WBC (Bld) 0 % 0 - 2 % [facility] Eosinophils/100 WBC (Bld) 2 % 1 - 4 % [facility] Hematocrit (Bld) [Volume fraction] 30.2 % Low 36.3 - 47.1 % [facility] Hemoglobin (Bld) [Mass/Vol] 10.4 g/dL Low 11.9 - 15.1 g/dL [facility] Immature granulocytes/100 WBC (Bld) 1 % High 0 [facility] Interpretation and review of laboratory results Abnormal [facility] Lymphocytes/100 WBC (Bld) 33 % 24 - 43 % [facility] MCH (RBC) [Entitic mass] 29.7 pg 25.2 - 33.5 pg [facility] MCHC (RBC) [Mass/Vol] 34.4 g/dL 28.4 - 34.8 g/dL [facility] MCV (RBC) [Entitic vol] 86.3 fL 82.6 - 102.9 fL [facility] Monocytes/100 WBC (Bld) 9 % 3 - 12 % [facility] NRBC Automated 0.0 0.0 per 100 WBC [facility] Platelet distribution width (Bld) [Ratio] 13.6 % 11.8 - 14.4 % [facility] Platelet mean volume (Bld) [Entitic vol] 11.2 fL 8.1 - 13.5 fL [facility] Platelets (Bld) [#/Vol] 410 10*3/uL [facility] RBC (Bld) [#/Vol] 3.50 10*6/uL Low 3.95 - 5.1 1 m/uL [facility] Segmented neutrophils/100 WBC (Bld) 54 % 36 - 65 % [facility] Segs Absolute 3.83 [facility] WBC (Bld) [#/Vol] 7.1 10*3/uL [facility] CBC with Diffon 07-19-2022 Abs. Basophil 0.03 k/uL Normal 0.00-0.20 [facility] Comment on above: Performed By: #### B MPX, CDP #### [facility] [address] [place] [phone] [employer]: Bala Skelton MD Abs.Imm.Granulocyte 0.05 k/uL Normal 0.00-0.30 [facility] Comment on above: Performed By: #### B MPX, CDP #### [facility] [address] [place] [phone] [employer]: Bala Skelton MD Abs.Neutrophil (Seg) 3.83 k/uL Normal 1.50-8.10 [facility] Comment on above: Performed By: #### B MPX, CDP #### [facility] [address] [place] [phone] [employer]: Bala Skelton MD Basophils/100 WBC (Bld) 0 % Normal 0-2 [facility] Comment on above: Performed By: #### B MPX, CDP #### [facility] [address] [place] [phone] [employer]: Bala Skelton MD Eosinophils (Bld) [#/Vol] 0.16 10*3/uL Normal 0.00-0.44 [facility] Comment on above: Performed By: #### B MPX, CDP #### [facility] [address] [place] [phone] [employer]: Bala Skelton MD Eosinophils/100 WBC (Bld) 2 % Normal 1-4 [facility] Comment on above: Performed By: #### B MPX, CDP #### [facility] [address] [place] [phone] [employer]: Bala Skelton MD Erythrocyte distribution width (RBC) [Ratio] 13.6 % Normal 11.8-14.4 [facility] Comment on above: Performed By: #### B MPX, CDP #### [facility] [address] [place] [address] [employer]: Bala Skelton MD Hematocrit (Bld) [Volume fraction] 30.2 % Low 36.3-47.1 [facility] Comment on above: Performed By: #### B MPX, CDP #### [facility] [address] [place] [phone] [employer]: Bala Skelton MD Hemoglobin (Bld) [Mass/Vol] 10.4 g/dL Low 11.9-15.1 [facility] Comment on above: Performed By: #### B MPX, CDP #### [address] [address] [employer]: Bala Skelton MD Immature granulocytes/100 WBC (Bld) 1 % High 0 [facility] Comment on above: Performed By: #### B MPX, CDP #### [address] [address] [employer]: Bala Skelton MD Lymphocytes (Bld) [#/Vol] 2.34 10*3/uL Normal 1.10-3.70 [facility] Comment on above: Performed By: #### B MPX, CDP #### [facility] [address] [place] [phone] [employer]: Bala Skelton MD Lymphocytes/100 WBC (Bld) 33 % Normal 24-43 [facility] Comment on above: Performed By: #### B MPX, CDP #### [address] [address] [employer]: Bala Skelton MD MCH (RBC) [Entitic mass] 29.7 pg Normal 25.2-33.5 [facility] Comment on above: Performed By: #### B MPX, CDP #### [address] [address] [employer]: Bala Skelton MD MCHC (RBC) [Mass/Vol] 34.4 g/dL Normal 28.4-34.8 [facility] Comment on above: Performed By: #### B MPX, CDP #### [address] [address] [employer]: Bala Skelton MD MCV (RBC) [Entitic vol] 86.3 fL Normal 82.6-102.9 [facility] Comment on above: Performed By: #### B MPX, CDP #### [address] [address] [employer]: Bala Skelton MD Monocytes (Bld) [#/Vol] 0.64 10*3/uL Normal 0.10-1.20 [facility] Comment on above: Performed By: #### B MPX, CDP #### [address] [address] [employer]: Bala Skelton MD Monocytes/100 WBC (Bld) 9 % Normal 3-12 [facility] Comment on above: Performed By: #### B MPX, CDP #### [address] [address] [employer]: Bala Skelton MD Neutrophil (Seg) 54 % Normal 36-65 [facility] Comment on above: Performed By: #### B MPX, CDP #### [address] [address] [employer]: Bala Skelton MD NRBC Automated 0.0 per 100 WBC Normal 0.0 [facility] Comment on above: Performed By: #### B MPX, CDP #### [address] [address] [employer]: Bala Skelton MD Platelet mean volume (Bld) [Entitic vol] 11.2 fL Normal 8.1-13.5 [facility] Comment on above: Performed By: #### B MPX, CDP #### [address] [address] [employer]: Bala Skelton MD Platelets (Bld) [#/Vol] 410 10*3/uL Normal 138-453 [facility] Comment on above: Performed By: #### B MPX, CDP #### [address] [address] [employer]: Bala Skelton MD RBC (Bld) [#/Vol] 3.50 10*6/uL Low 3.95-5.11 [facility] Comment on above: Performed By: #### B MPX, CDP #### [address] [address] [employer]: Bala Skelton MD WBC (Bld) [#/Vol] 7.1 10*3/uL Normal 3.5-11.3 [facility] Comment on above: Performed By: #### B MPX, CDP #### [address] [address] [employer]: Bala Skelton MD Cult,Urineon 07-19-2022 Cult,Urine Specimen Description .CLEAN CATCH URINE Culture NO SIGNIFICANT GROWTH Report Status FINAL 07/19/2022 Normal [facility] Comment on above: Performed By: #### A NAX, IFX, PHEP, FKLLC, PE #### [facility] [address] [place] [address] [employer]: Bala Skelton MD Culture, Urineon 07-19-2022 Bacteria identified Cx Nom (U) NO SIGNIFICANT GROWTH [facility] Specimen Description .CLEAN CATCH URINE [facility] IR GUIDED NEPHROSTOMY CATH P LACEMENT LEFTon 07-19-2022 Successful percutane ous left nephroureteral stent placement via lower pole, past a large staghorn calculus, with distal pigtail tip position in the urinary bladder, as above. Findings were discussed with KASH CLAY at 4:09 pm on 07/19/2022. [facility] Noman Blake MD - 07/19/2022 PROCEDURE: PERCUTANEOUS ANTEGRADE PYELOGRAM LEFT PERCUTANEOUS NEPHROURETERAL STENT PLACEMENT ULTRASOUND AND FLUOROSCOPY GUIDANCE MODERATE CONSCIOUS SEDATION 07/19/2022 HISTORY: ORDERING SYSTEM PROVIDED HISTORY: staorn TECHNOLOGIST PROVIDED HISTORY: staghorn Is the patient ?->No SEDATION: Versed 0.5 mg IV, fentanyl 125 mcg IV were administered intravenously under my direct supervision; hemodynamic monitoring was provided by registered RN during the entire procedure which lasted approximately 1 hour. CONTRAST: Isovue 370-10 mL FLUOROSCOPY DOSE AND TYPE OR TIME AND EXPOSURES: Fluoroscopy time-9.4 minutes D [id number] cGy cm squared. TECHNIQUE Informed consent was obtained following detailed description of the procedure including risks, benefits, and alternatives. [place] protocol was followed. The patient's flank was prepped and draped in sterile fashion and local anesthesia was achieved with lidocaine. An Accustick needle was advanced into a posterior mid pole calyx using ultrasound and fluoroscopy guidance and a limited percutaneous antegrade pyelogram was performed. Subsequently, a 2nd 21 gauge needle was used to access a lower pole calyx, a 2nd 3 in 1 transition set and 0.018 inch guidewire was used to insert a 0.035 glidewire which was manipulated into the urinary bladder using a 4 Niuean Kumpe the catheter; the Glidewire was exchanged for a 0.035 inch Amplatz wire, the transition set and Kumpe the catheter removed, and an 8 FR percutaneous nephroureteral stent was inserted after the tract was dilated. The proximal pigtail was formed with some difficulty in the renal pelvis due to staghorn calculus; the distal pigtail was partially formed but in the urinary bladder. Excellent urine output was demonstrated. The catheter was sutured to the skin and the patient tolerated the procedure well. FINDINGS: Initial percutaneous antegrade pyelogram demonstrates hydronephrosis with a large staghorn calculus. Subsequent images show puncture of the lower pole calyx, 4 Niuean Kumpe the catheter manipulation and glidewire extension into the urinary bladder. Subsequent images show the nephroureteral stent in satisfactory position. IMPRESSION: Successful percutaneous left nephroureteral stent placement via lower pole, past a large staghorn calculus, with distal pigtail tip position in the urinary bladder, as above. Findings were discussed with KASH CLAY at 4:09 pm on 07/19/2022. [facility] [employer] Work Phone: Radiology Study observation (narrative) [facility] [email or web address] Phone: IR GUIDED NEPHROSTOMY CATH P LACEMENT LEFTOrdered By: Noman Mullen on 07-19-2022 [facility] [employer] Work Phone: POC Glucose Fingerstickon Glucose [Mass/Vol] 278 mg/dL High 65 - 105 mg/dL [facility] [employer] Interpretation and review of laboratory results Abnormal [facility] [employer] Glucose [Mass/Vol] 231 mg/dL High 65 - 105 mg/dL [facility] Interpretation and review of laboratory results Abnormal [facility] [employer] Glucose [Mass/Vol] 301 mg/dL High 65 - 105 mg/dL [facility] [employer] Interpretation and review of laboratory results Abnormal [facility] Glucose [Mass/Vol] 283 mg/dL High 65 - 105 mg/dL [facility] Interpretation and review of laboratory results Abnormal [facility] [employer] PTon 07-19-2022 INR Coag (PPP) [Relative time] 0.9 {INR} Normal [facility] Comment on above: Result Comment: Therapeutic Range: Moderate Anticoagulant Intensity: INR = 2.0-3.0 High Anticoagulant Intensity: INR = 2.5-3.5 Performed By: #### A NAX, IFX, PHEP, FKLLC, PE #### [facility] [address] [place] [address] [phone] [employer]: Bala Skelton MD PT Coag (PPP) [Time] 9.8 s Normal 9.1-12.3 [facility] Comment on above: Performed By: #### A NAX, IFX, PHEP, FKLLC, PE #### [facility] [address] [place] [address] [phone] [employer]: Bala Skelton MD Protime-INRon 07-19-2022 INR Coag (Bld) [Relative time] 0.9 {INR} [facility] [employer] Comment on above: Therapeutic Range: Moderate Anticoagulant Intensity: INR = 2.0-3.0 High Anticoagulant Intensity: INR = 2.5-3.5 PT Coag (PPP) [Time] 9.8 s [facility] [employer] [facility] [employer] Urinalysis w/ Microon 2021 Bilirubin, SemiQt,Ur Negative Normal NEG [facility] Comment on above: Performed By: #### A NAX, IFX, PHEP, FKLLC, PE #### [facility] [address] [place] [address] [phone] [employer]: Bala Skelton MD Blood, Urine LARGE Abnormal NEG [facility] Comment on above: Performed By: #### A NAX, IFX, PHEP, FKLLC, PE #### [facility] [address] [place] [address] [phone] [employer]: Bala Skelton MD Casts 2 TO 5 HYALINE Normal 0-8 [facility] Comment on above: Result Comment: Refe rence range defined for non-centrifuged specimen. Performed By: #### A NAX, IFX, PHEP, FKLLC, PE #### [address] [address] [employer]: Bala Skelton MD Clarity (U) Turbid Abnormal CLEAR [facility] Comment on above: Performed By: #### A NAX, IFX, PHEP, FKLLC, PE #### [address] [address] [employer]: Bala Skelton MD Color (U) Yellow Normal YEL [facility] Comment on above: Performed By: #### A NAX, IFX, PHEP, FKLLC, PE #### [address] [address] [employer]: Bala Skelton MD Epithelial cells LM Ql (Urine sed) 0 TO 2 Normal 0-5 [facility] Comment on above: Performed By: #### A NAX, IFX, PHEP, FKLLC, PE #### [address] [address] [employer]: Bala Skelton MD Glucose Ql (U) 1+ Abnormal NEG [facility] Comment on above: Performed By: #### A NAX, IFX, PHEP, FKLLC, PE #### [facility] [address] [place] [phone] [employer]: Bala Skelton MD Ketones Ql (U) Negative Normal NEG [facility] Comment on above: Performed By: #### A NAX, IFX, PHEP, FKLLC, PE #### [facility] [address] [place] [phone] [employer]: Bala Skelton MD Leukocyte esterase Test strip Ql (U) LARGE Abnormal NEG [facility] Comment on above: Performed By: #### A NAX, IFX, PHEP, FKLLC, PE #### [facility] [address] [place] [phone] [employer]: Bala Skelton MD Nitrite,Ur Negative Normal NEG [facility] Comment on above: Performed By: #### A NAX, IFX, PHEP, FKLLC, PE #### [address] [address] [employer]: Bala Skelton MD PH,Ur 5.0 Normal 5.0-8.0 [facility] Comment on above: Performed By: #### A NAX, IFX, PHEP, FKLLC, PE #### [address] [address] [employer]: Bala Skelton MD Protein Ql (U) 1+ Abnormal NEG [facility] Comment on above: Performed By: #### A NAX, IFX, PHEP, FKLLC, PE #### [address] [address] [employer]: Bala Skelton MD Spec. [place],Ur 1.017 Normal 1.005-1.030 [facility] Comment on above: Performed By: #### A NAX, IFX, PHEP, FKLLC, PE #### [address] [address] [employer]: Bala Skelton MD Urine RBC's 10 TO 20 Normal 0-4 [facility] Comment on above: Result Comment: Refe rence range defined for non-centrifuged specimen. Performed By: #### A NAX, IFX, PHEP, FKLLC, PE #### [address] [address] [employer]: Bala Skelton MD Urine WBC's TOO NUMEROUS TO COUNT Normal 0-5 [facility] Comment on above: Performed By: #### A NAX, IFX, PHEP, FKLLC, PE #### [address] [phone] [employer]: Bala Skelton MD Urobilinogen,Ur Normal Normal NORM [facility] Comment on above: Performed By: #### A NAX, IFX, PHEP, FKLLC, PE #### [facility] [address] [place], [place] [phone] [employer]: Bala Skelton MD Urinalysis with Microscopico n 07-19-2022 Bilirubin Urine Negative NEGATIVE [facility] Casts UA 2 TO 5 HYALINE Refer ence range defined for non-centrifuged specimen. [facility] Color, UA Yellow Yellow [facility] Epithelial Cells UA 0 TO 2 [facility] Glucose, Ur 1+ Abnormal NEGATIVE [facility] Interpretation and review of laboratory results Abnormal [facility] Ketones Ql (U) Negative NEGATIVE [facility] Leukocyte esterase Test strip Ql (U) LARGE Abnormal NEGATIVE [facility] Nitrite, Urine Negative NEGATIVE [facility] pH, UA 5.0 5 - 8 [facility] Protein, UA 1+ Abnormal NEGATIVE [facility] RBC, UA 10 TO 20 [facility] Comment on above: Reference range defi rodger for non-centrifuged specimen. Specific [place], UA 1.017 1.005 - 1.03 [facility] Turbidity UA Turbid Abnormal Clear [facility] Urine Hgb LARGE Abnormal NEGATIVE [facility] Urobilinogen, Urine Normal Normal [facility] WBC, UA TOO NUMEROUS TO COUNT [facility] APTTon 07-18-2022 aPTT Coag (Bld) [Time] 22.8 s Normal 20.5-30.5 [facility] Comment on above: Result Comment: IV Heparin Therapy Range: 48.6-77.8 Performed By: #### A NAX, IFX, PHEP, FKLLC, PE #### [facility] [address] [place], [place] [phone] [employer]: Bala Skelton MD aPTT Coag (Bld) [Time] 22.8 s [facility] Comment on above: IV Heparin Therapy Range: 48.6-77.8 Basic Metab w/rfx MGon 07-18 (cont.) Normal [facility] Comment on above: Result Comment: Aver age GFR for 50-59 years old: 93 mL/min/1.73sq m Chronic Kidney Disease: <60 mL/min/1.73sq m Kidney failure: <15 mL/min/1.73sq m eGFR calculated using average adult body mass. Additional eGFR calculator available at: http://www.[employer]Market/multiple_crcl_2012.htm Performed By: #### A NAX, IFX, PHEP, FKLLC, PE #### [address] [address] Director [employer]: Bala Skelton MD Anion gap [Moles/Vol] 13 mmol/L Normal 9-17 [facility] Comment on above: Performed By: #### A NAX, IFX, PHEP, FKLLC, PE #### [facility] [address] [place] [phone] Director [employer]: Bala Skelton MD Calcium [Mass/Vol] 9.4 mg/dL Normal 8.6-10.4 [facility] Comment on above: Performed By: #### A NAX, IFX, PHEP, FKLLC, PE #### [facility] [address] [place] [phone] [employer]: Bala Sketlon MD Chloride [Moles/Vol] 100 mmol/L Normal 98-107 [facility] Comment on above: Performed By: #### A NAX, IFX, PHEP, FKLLC, PE #### [facility] [address] [place] [phone] [employer]: Bala Skelton MD CO2 [Moles/Vol] 24 mmol/L Normal 20-31 [facility] Comment on above: Performed By: #### A NAX, IFX, PHEP, FKLLC, PE #### [facility] [address] [place] [phone] [employer]: Bala Skelton MD Creatinine [Mass/Vol] 1.65 mg/dL High 0.50-0.90 [facility] Comment on above: Performed By: #### A NAX, IFX, PHEP, FKLLC, PE #### [facility] [address] [place] [phone] [employer]: Bala Skelton MD GFR, Amer 40 mL/min Low >60 [facility] Comment on above: Performed By: #### A NAX, IFX, PHEP, FKLLC, PE #### [facility] [address] [place] [phone] [employer]: Bala Skelton MD GFR,non Amer 33 mL/min Low >60 [facility] Comment on above: Performed By: #### A NAX, IFX, PHEP, FKLLC, PE #### [address] [address] [employer]: Bala Skelton MD Glucose [Mass/Vol] 239 mg/dL High 70-99 [facility] Comment on above: Performed By: #### A NAX, IFX, PHEP, FKLLC, PE #### [address] [address] [employer]: Bala Skelton MD Potassium [Moles/Vol] 4.9 mmol/L Normal 3.7-5.3 [facility] Comment on above: Performed By: #### A NAX, IFX, PHEP, FKLLC, PE #### [facility] [address] [place] [phone] [employer]: Bala Skelton MD Sodium [Moles/Vol] 137 mmol/L Normal 135-144 [facility] Comment on above: Performed By: #### A NAX, IFX, PHEP, FKLLC, PE #### [facility] [address] [place], [place] [phone] [employer]: Bala Skelton MD Urea nitrogen [Mass/Vol] 33 mg/dL High 6-20 [facility] Comment on above: Performed By: #### A NAX, IFX, PHEP, FKLLC, PE #### [facility] [address] [place], [place] [phone] [employer]: Bala Skelton MD Basic Metabolic Panel w/ Ref romulo to MGon 07-18-2022 Anion gap [Moles/Vol] 13 mmol/L 9 - 17 mmol/L [facility] Calcium [Mass/Vol] 9.4 mg/dL 8.6 - 10. 4 mg/dL [facility] Chloride [Moles/Vol] 100 mmol/L 98 - 107 mmol/L [facility] CO2 [Moles/Vol] 24 mmol/L 20 - 31 mmol/L [facility] Creatinine [Mass/Vol] 1.65 mg/dL High 0.5 - 0.9 mg/dL [facility] GFR 40 mL/min Low 60 - PINF mL/min [facility] GFR Non- 33 mL/min Low 60 - PINF mL/min [facility] GFR/1.73 sq M.predicted MDRD (S/P/Bld) [Vol rate/Area] [facility] Comment on above: Average GFR for 50-5 9 years old: 93 mL/min/1.73sq m Chronic Kidney Disease: <60 mL/min/1.73sq m Kidney failure: <15 mL/min/1.73sq m eGFR calculated using average adult body mass. Additional eGFR calculator available at: http://www.[employer]/multiple_crcl_2012.htm Glucose [Mass/Vol] 239 mg/dL High 70 - 99 mg/dL [facility] Interpretation and review of laboratory results Abnormal [facility] Potassium [Moles/Vol] 4.9 mmol/L 3.7 - 5.3 mmol/L [facility] Sodium [Moles/Vol] 137 mmol/L 135 - 144 mmol/L [facility] Urea nitrogen (BldV) [Mass/Vol] 33 mg/dL High 6 - 20 mg/dL [facility] CBC AUTO DIFFon 07-18-2022 BASO # 0.0 103/ul Normal 0.0-0.1 [facility] Comment on above: Performed By: #### C BC #### [facility] [address] [address] [address] Delmer Rea Basophils/100 WBC (Bld) 0.2 % Normal 0.2-2.0 [facility] Comment on above: Performed By: #### C BC #### [facility] [address] [place] [address] Dr. Delmer Rea EO # 0.1 103/ul Normal 0.0-0.7 [facility] [facility] Comment on above: Performed By: #### C BC #### [facility] [address] [place] [address] Dr. Delmer Rea Eosinophils/100 WBC (Bld) 0.7 % Critically low 0.9-7.0 [facility] Comment on above: Performed By: #### C BC #### [facility] [address] [place] [address] Dr. Delmer Rea Erythrocyte distribution width (RBC) [Ratio] 13.1 % Normal 11.0-15.0 [facility] Comment on above: Performed By: #### C BC #### [facility] [address] [place] [address] Dr. Delmer Rea Hematocrit (Bld) [Volume fraction] 36.9 % Normal 36.0-48.0 [facility] Comment on above: Performed By: #### C BC #### [facility] [address] [place] [address] Dr. Delmer Rea Hemoglobin (Bld) [Mass/Vol] 12.5 g/dL Normal 12.0-16.0 [facility] Comment on above: Performed By: #### C BC #### [facility] [address] [address] [address] Delmer Rea IG # 0.08 10e3/ul Critically high 0.00-0.03 [facility] Comment on above: Performed By: #### C BC #### [facility] [address] [address] [address] Delmer Rea IG % 0.6 % Critically high 0.0-0.5 [facility] Comment on above: Performed By: #### C BC #### [facility] [address] [place] [address] Dr. Delmer Rea LYMPH # 1.5 103/ul Normal 1.2-3.8 [facility] Comment on above: Performed By: #### C BC #### [facility] [address] [place] [address] Dr. Delmer Rea Lymphocytes/100 WBC (Bld) 11.0 % Critically low 20.5-60.0 [facility] Comment on above: Performed By: #### C BC #### [facility] [address] [place] [address] Dr. Delmer Rea MANUAL DIFF REQ NO Normal [facility] Comment on above: Performed By: #### C BC #### [facility] [address] [place] [address] Dr. Delmer Rea MCH (RBC) [Entitic mass] 29.0 pg Normal 26.7-34.0 [facility] Comment on above: Performed By: #### C BC #### [facility] [address] [place] [address] Dr. Delmer Rea MCHC (RBC) [Mass/Vol] 33.9 g/dL Normal 29.9-35.2 [facility] Comment on above: Performed By: #### C BC #### [facility] [address] [place] [address] Dr. Delmer Rea MCV (RBC) [Entitic vol] 85.6 fL Normal 81.0-99.0 [facility] Comment on above: Performed By: #### C BC #### [facility] [address] [place] [address] Dr. Delmer Rea MONO # 0.8 103/ul Normal 0.3-0.8 [facility] Comment on above: Performed By: #### C BC #### [facility] [address] [place] [address] Dr. Delmer Rea Monocytes/100 WBC (Bld) 5.9 % Normal 1.7-12.0 [facility] Comment on above: Performed By: #### C BC #### [facility] [address] [place] [address] Dr. Delmer Rea NEUT # 11.2 103/ul Critically high 1.4-6.5 [facility] [place] Comment on above: Performed By: #### C BC #### [facility] [address] [place] [address] Dr. Delmer Rea Neutrophils/100 WBC (Bld) 81.6 % Critically high 43.0-75.0 [facility] Comment on above: Performed By: #### C BC #### [facility] [address] [place] [address] Dr. Delmer Rea Platelet mean volume (Bld) [Entitic vol] 10.3 fL Normal 9.5-13.5 [facility] Comment on above: Performed By: #### C BC #### [facility] [address] [place] [address] Dr. Delmer Rea PLT 362 103/ul Normal 150-450 [facility] Comment on above: Performed By: #### C BC #### [facility] [address] [place] [address] Dr. Delmer Rae RBC 4.31 106/ul Normal 4.20-5.40 [facility] Comment on above: Performed By: #### C BC #### [facility] [address] [place] [address] Dr. Delmer Rea WBC 13.7 103/ul Critically high 4.0-11.0 [facility] Comment on above: Performed By: #### C BC #### [facility] [address] [place] [address] Dr. Delmer Rea CBC with Auto Differentialon 07-18-2022 Absolute Eos # 0.08 [facility] Absolute Immature Granulocyte 0.08 [facility] Absolute Lymph # 2.13 [facility] Absolute [place] # 0.84 [facility] Basophils (Bld) [#/Vol] 0.04 10*3/uL [facility] Basophils/100 WBC (Bld) 0 % 0 - 2 % [facility] Eosinophils/100 WBC (Bld) 1 % 1 - 4 % [facility] Hematocrit (Bld) [Volume fraction] 35.4 % Low 36.3 - 47.1 % [facility] Hemoglobin (Bld) [Mass/Vol] 11.8 g/dL Low 11.9 - 15.1 g/dL [facility] Immature granulocytes/100 WBC (Bld) 1 % High 0 [facility] Interpretation and review of laboratory results Abnormal [facility] Lymphocytes/100 WBC (Bld) 17 % Low 24 - 43 % [facility] MCH (RBC) [Entitic mass] 28.6 pg 25.2 - 33.5 pg [facility] MCHC (RBC) [Mass/Vol] 33.3 g/dL 28.4 - 34.8 g/dL [facility] MCV (RBC) [Entitic vol] 85.7 fL 82.6 - 102.9 fL [facility] Monocytes/100 WBC (Bld) 7 % 3 - 12 % [facility] NRBC Automated 0.0 0.0 per 100 WBC [facility] Platelet distribution width (Bld) [Ratio] 13.2 % 11.8 - 14.4 % [facility] Platelet mean volume (Bld) [Entitic vol] 10.4 fL 8.1 - 13.5 fL [facility] Platelets (Bld) [#/Vol] 339 10*3/uL [facility] RBC (Bld) [#/Vol] 4.13 10*6/uL 3.95 - 5.1 1 m/uL [facility] Segmented neutrophils/100 WBC (Bld) 74 % High 36 - 65 % [facility] Segs Absolute 9.11 High [facility] WBC (Bld) [#/Vol] 12.3 10*3/uL High [facility] CBC with Diffon 07-18-2022 Abs. Basophil 0.04 k/uL Normal 0.00-0.20 [facility] Comment on above: Performed By: #### A NAX, IFX, PHEP, FKLLC, PE #### [facility] [employer] [address] [place] [phone] [employer]: Bala Skelton MD Abs.Imm.Granulocyte 0.08 k/uL Normal 0.00-0.30 [facility] Comment on above: Performed By: #### A NAX, IFX, PHEP, FKLLC, PE #### [address] [place] [address] [address] [employer]: Bala Skelton MD Abs.Neutrophil (Seg) 9.11 k/uL High 1.50-8.10 [facility] Comment on above: Performed By: #### A NAX, IFX, PHEP, FKLLC, PE #### [facility] [employer] [address] [place] [phone] [employer]: Bala Skelton MD Basophils/100 WBC (Bld) 0 % Normal 0-2 [facility] Comment on above: Performed By: #### A NAX, IFX, PHEP, FKLLC, PE #### [facility] [employer] [address] [place] [phone] [employer]: Bala Skelton MD Eosinophils (Bld) [#/Vol] 0.08 10*3/uL Normal 0.00-0.44 [facility] Comment on above: Performed By: #### A NAX, IFX, PHEP, FKLLC, PE #### [facility] [employer] [address] [place] [address] [phone] [employer]: Bala Skelton MD Eosinophils/100 WBC (Bld) 1 % Normal 1-4 [facility] Comment on above: Performed By: #### A NAX, IFX, PHEP, FKLLC, PE #### [address] [phone] [employer]: Bala Skelton MD Erythrocyte distribution width (RBC) [Ratio] 13.2 % Normal 11.8-14.4 [facility] Comment on above: Performed By: #### A NAX, IFX, PHEP, FKLLC, PE #### [address] [phone] [employer]: Bala Skelton MD Hematocrit (Bld) [Volume fraction] 35.4 % Low 36.3-47.1 [facility] Comment on above: Performed By: #### A NAX, IFX, PHEP, FKLLC, PE #### [place] [address] [employer]: Bala Skelton MD Hemoglobin (Bld) [Mass/Vol] 11.8 g/dL Low 11.9-15.1 [facility] Comment on above: Performed By: #### A NAX, IFX, PHEP, FKLLC, PE #### [address] [phone] [employer]: Bala Skelton MD Immature granulocytes/100 WBC (Bld) 1 % High 0 [facility] Comment on above: Performed By: #### A NAX, IFX, PHEP, FKLLC, PE #### [place] [address] [employer]: Bala Skelton MD Lymphocytes (Bld) [#/Vol] 2.13 10*3/uL Normal 1.10-3.70 [facility] Comment on above: Performed By: #### A NAX, IFX, PHEP, FKLLC, PE #### [address] [address] [employer]: Bala Skelton MD Lymphocytes/100 WBC (Bld) 17 % Low 24-43 [facility] Comment on above: Performed By: #### A NAX, IFX, PHEP, FKLLC, PE #### [address] [address] [employer]: Bala Skelton MD MCH (RBC) [Entitic mass] 28.6 pg Normal 25.2-33.5 [facility] Comment on above: Performed By: #### A NAX, IFX, PHEP, FKLLC, PE #### [address] [phone] [employer]: Bala Skelton MD MCHC (RBC) [Mass/Vol] 33.3 g/dL Normal 28.4-34.8 [facility] Comment on above: Performed By: #### A NAX, IFX, PHEP, FKLLC, PE #### [address] [phone] [employer]: Bala Skelton MD MCV (RBC) [Entitic vol] 85.7 fL Normal 82.6-102.9 [facility] Comment on above: Performed By: #### A NAX, IFX, PHEP, FKLLC, PE #### [address] [address] [employer]: Bala Skelton MD Monocytes (Bld) [#/Vol] 0.84 10*3/uL Normal 0.10-1.20 [facility] Comment on above: Performed By: #### A NAX, IFX, PHEP, FKLLC, PE #### [address] [phone] [employer]: Bala Skelton MD Monocytes/100 WBC (Bld) 7 % Normal 3-12 [facility] Comment on above: Performed By: #### A NAX, IFX, PHEP, FKLLC, PE #### [address] [address] [employer]: Bala Skelton MD Neutrophil (Seg) 74 % High 36-65 [facility] Comment on above: Performed By: #### A NAX, IFX, PHEP, FKLLC, PE #### [address] [phone] [employer]: Bala Skelton MD NRBC Automated 0.0 per 100 WBC Normal 0.0 [facility] Comment on above: Performed By: #### A NAX, IFX, PHEP, FKLLC, PE #### [address] [address] [employer]: Bala Skelton MD Platelet mean volume (Bld) [Entitic vol] 10.4 fL Normal 8.1-13.5 [facility] Comment on above: Performed By: #### A NAX, IFX, PHEP, FKLLC, PE #### [address] [address] [employer]: Bala Skelton MD Platelets (Bld) [#/Vol] 339 10*3/uL Normal 138-453 [facility] Comment on above: Performed By: #### A NAX, IFX, PHEP, FKLLC, PE #### [address] [phone] [employer]: Bala Skelton MD RBC (Bld) [#/Vol] 4.13 10*6/uL Normal 3.95-5.11 [facility] Comment on above: Performed By: #### A NAX, IFX, PHEP, FKLLC, PE #### [address] [place] [address] [employer]: Bala Skelton MD WBC (Bld) [#/Vol] 12.3 10*3/uL High 3.5-11.3 [facility] Comment on above: Performed By: #### A NAX, IFX, PHEP, FKLLC, PE #### [facility] [employer] [address] [place] [address] [employer]: Bala Skelton MD CT ABD/PELVIS WO CONon 07-18 CT ABD/PELVIS WO CON EXAMINATION: CT ABD/PELVIS WO CON HISTORY: CALCULUS OF KIDNEY ; acute left flank pain COMPARISON: No relevant comparison available. TECHNIQUE: Axial, Coronal, and Sagittal images were created without IV contrast. Dose reduction techniques were achieved by using automated exposure control and/or adjustment of mA and/or kV according to patient size and/or use of iterative reconstruction technique. FINDINGS: LUNG BASES: No visible pulmonary or pleural disease. LIVER: Small hypodensity within right hepatic lobe favoring a cyst or hemangioma. No enlargement, atrophy, suspicious density, or significant focal lesion. BILIARY: No dilatation or calcification. PANCREAS: No lesion, fluid collection, or abnormal duct dilatation. SPLEEN: No enlargement or focal lesion. ADRENALS: No mass or enlargement. KIDNEYS: Large partially obstructing staghorn calculus within left renal pelvis extending to the calyces, 4.6 x 2.9 x 1.1 cm. Moderate marked cortical thinning/renal atrophy. A few small foci of air/gas within the left renal pelvis and calyces. Mild edema within the left perirenal space. No abnormal dilation or inflammatory changes of the left ureter. Unremarkable right kidney and ureter. BOWEL/MESENTERY: No visible mass, obstruction, or bowel wall thickening. AORTA/VASCULAR: Moderate atherosclerotic disease. No aneurysm. RETROPERITONEUM: No mass or adenopathy. LYMPH NODES: No adenopathy. URINARY BLADDER: No visible focal wall thickening, lesion, or calculus. PELVIC ORGANS: Hysterectomy. ABDOMINAL WALL: No mass or hernia. BONES: 1.9 cm oval hypodensity within L1 vertebral body, most likely a hemangioma. OTHER: Negative. IMPRESSION: 1. Partially obstructing large staghorn calcification within left renal pelvis with mild perinephric edema. Small amount of air/gas within left kidney upper collecting system raises concern for pyelonephritis. Moderate left renal atrophy. No prior studies for comparison. Electronically authenticated by: MARAH ALCANTAR Date: 2022-07-18 12:01 Normal [facility] Covid-19 PCR (CVDTB)on 07-07 SARS-CoV-2 (COVID-19) RNA KASI+probe Ql (Unsp spec) Not detected Normal NOT DETECTED [facility] Comment on above: Result Comment: When diagnostic testing is negative, the possibility of a false negative should be considered in the context of a patient's recent exposures and the presence of clinical signs and symptoms consistent with SARS-CoV-2. This test is not yet approved or cleared by the [place] FDA. When there are no FDA-approved or cleared tests available, and other criteria are met, FDA can make tests available under an emergency access mechanism called an Emergency Use Authorization (EUA). The EUA for this test is supported by the [employer] of Health and Human Service's declaration that circumstances exist to justify the emergency use of in vitro diagnostics for the detection and/or diagnosis of the virus that causes COVID-19. This EUA will remain in effect for the duration of the COVID-19 declaration justifying emergency of IVDs, unless it is terminated or revoked by the FDA (after which the test may no longer be used). Performed By: #### L IPA, DLDL, CON, LIPID, T7, CMP, TSH #### [facility] [address] [address] [address] Delmer Rea ER URINE PROFILEon 2 Bilirubin Ql (U) Negative Normal NEGATIVE [facility] Comment on above: Performed By: #### U MICRO, ERUR #### [facility] [address] [address] [address] Delmer Rea Clarity (U) SL CLOUDY Abnormal CLEAR [facility] Comment on above: Performed By: #### U MICRO, ERUR #### [facility] [address] [address] [address] Delmer Rea Color (U) LT. YELLOW Normal YELLOW [facility] Comment on above: Performed By: #### U MICRO, ERUR #### [facility] [address] [address] [address] Delmer WALKER A micrscopic examina tion will be performed if indicated. Normal [facility] Comment on above: Performed By: #### U MICRO, ERUR #### [facility] [address] [address] [address] Delmer Rea Glucose Ql (U) 1000 mg/dl Abnormal NEGATIVE [facility] Comment on above: Performed By: #### U MICRO, ERUR #### [facility] [address] [address] [address] Delmer Rea Hemoglobin Ql (U) LARGE Abnormal NEGATIVE [facility] Comment on above: Performed By: #### U MICRO, ERUR #### [facility] [address] [place] [address] Dr. Delmer Rea Ketones Ql (U) Negative Normal NEGATIVE [facility] Comment on above: Performed By: #### U MICRO, ERUR #### [facility] [address] [address] [address] Delmer Rea LEUKOCYTES SMALL Abnormal NEGATIVE [facility] Comment on above: Performed By: #### U MICRO, ERUR #### [facility] [address] [address] [address] Delmer Rea Nitrite Ql (U) Positive Abnormal NEGATIVE [facility] Comment on above: Performed By: #### U MICRO, ERUR #### [facility] [address] [address] [address] Delemr Rea pH (U) 5.5 [pH] Normal 5-9 [facility] Comment on above: Performed By: #### U MICRO, ERUR #### [facility] [address] [address] [address] Delmer Rea SPEC GRAVITY 1.020 Normal 1.005-<=1.025 [facility] Comment on above: Performed By: #### U MICRO, ERUR #### [facility] [address] [address] [address] Delmer Rea UA PROTEIN TRACE Normal NEGATIVE/ TRACE [facility] Comment on above: Performed By: #### U MICRO, ERUR #### [facility] [address] [address] [address] Delmer Rea UR MICRO IND INDICATED Normal [facility] Comment on above: Performed By: #### U MICRO, ERUR #### [facility] [address] [address] [address] Delmer Rea Urobilinogen Qn (U) 0.2 {Juanita'U}/dL Normal 0.2 - 1. 0 [facility] Comment on above: Performed By: #### U MICRO, ERUR #### [facility] [address] [address] [address] Delmer Rea No Panel Informationon 07-18 [facility] POC Glucose Fingerstickon Glucose [Mass/Vol] 227 mg/dL High 65 - 105 mg/dL [facility] Interpretation and review of laboratory results Abnormal [facility] Glucose [Mass/Vol] 189 mg/dL High 65 - 105 mg/dL [facility] Interpretation and review of laboratory results Abnormal [facility] POCT glucoseOrdered By: Jason Swenson on 07-18-2022 Glucose [Mass/Vol] 189 mg/dL [facility] Interpretation and review of laboratory results Normal [facility] PROF CHEM 8 (BAS METB)on Anion gap [Moles/Vol] 13.6 mmol/L Normal [facility] Comment on above: Performed By: #### U MICRO, ERUR #### [facility] [address] [address] [address] Delmer Rea Calcium [Mass/Vol] 9.6 mg/dL Normal 8.5-10.1 [facility] Comment on above: Performed By: #### U MICRO, ERUR #### [facility] [address] [address] [address] Delmer Rea Chloride [Moles/Vol] 98 mmol/L Normal 98-107 [facility] Comment on above: Performed By: #### U MICRO, ERUR #### [facility] [address] [address] [address] Delmer Rea CO2 [Moles/Vol] 26.0 mmol/L Normal 21.0-32.0 [facility] Comment on above: Performed By: #### U MICRO, ERUR #### [facility] [address] [place] [address] Dr. Delmer Rea Creatinine [Mass/Vol] 1.45 mg/dL Critically high 0.55-1.02 [facility] Comment on above: Performed By: #### U MICRO, ERUR #### [facility] [address] [place] [address] Dr. Delmer Rea EGFR-AF TURKISH 46 mL/min/1.73m2 Critically low >=60 [facility] Comment on above: Performed By: #### U MICRO, ERUR #### [facility] [address] [place] [address] Dr. Delmer Rea EGFR-NON AF TURKISH 38 mL/min/1.73m2 Critically low >=60 [facility] Comment on above: Performed By: #### U MICRO, ERUR #### [facility] [address] [place] [address] Dr. Delmer Rea Glucose [Mass/Vol] 314 mg/dL Critically high 74-106 [facility] Comment on above: Performed By: #### U MICRO, ERUR #### [facility] [address] [place] [address] Dr. Delmer Rea Potassium [Moles/Vol] 4.6 mmol/L Normal 3.5-5.1 [facility] Comment on above: Result Comment: spec imen slightly hemolyzed Performed By: #### U MICRO, ERUR #### [facility] [address] [place] [address] Dr. Delmer Rea Sodium [Moles/Vol] 133 mmol/L Critically low 136-145 [facility] Comment on above: Performed By: #### U MICRO, ERUR #### [facility] [address] [place] [address] Dr. Delmer Rea Urea nitrogen [Mass/Vol] 35.0 mg/dL Critically high 7.0-18.0 [facility] Comment on above: Performed By: #### U MICRO, ERUR #### [facility] [address] [place], [place] [address] Dr. Delmer Rea Urea nitrogen/Creatinine [Mass ratio] 24.1 mg/mg Normal [facility] Comment on above: Performed By: #### U MICRO, ERUR #### [facility] [address] [address] [address] Delmer Rea PTon 07-18-2022 INR Coag (PPP) [Relative time] 0.9 {INR} Normal [facility] Comment on above: Result Comment: Therapeutic Range: Moderate Anticoagulant Intensity: INR = 2.0-3.0 High Anticoagulant Intensity: INR = 2.5-3.5 Performed By: #### A NAX, IFX, PHEP, FKLLC, PE #### [facility] [employer] [address] [place] [phone] [employer]: Bala Skelton MD PT Coag (PPP) [Time] 10.0 s Normal 9.1-12.3 [facility] Comment on above: Performed By: #### A NAX, IFX, PHEP, FKLLC, PE #### [facility] [employer] [address] [place] [address] [phone] [employer]: Bala Skelton MD Protime-INRon 07-18-2022 INR Coag (Bld) [Relative time] 0.9 {INR} [facility] Comment on above: Therapeutic Range: Moderate Anticoagulant Intensity: INR = 2.0-3.0 High Anticoagulant Intensity: INR = 2.5-3.5 PT Coag (PPP) [Time] 10 s [facility] URINE MICROSCOPIC ONLYon BACTERIA SMALL Abnormal NONE SEEN [facility] Comment on above: Performed By: #### U MICRO, ERUR #### [facility] [address] [address] [address] Delmer Rea Bacteria identified Cx Nom (U) INDICATED Normal [facility] Comment on above: Performed By: #### U MICRO, ERUR #### [facility] [address] [place] [address] Dr. Delmer Rea CAST NONE SEEN Normal NONE SEEN [facility] Comment on above: Performed By: #### U MICRO, ERUR #### [facility] [address] [place] [address] Dr. Delmer Rea Crystals LM Nom (Urine sed) NONE SEEN Normal NONE SEEN [facility] Comment on above: Performed By: #### U MICRO, ERUR #### [facility] [address] [place] [address] Dr. Delmer Rea Epithelial cells LM Ql (Urine sed) FEW Abnormal NONE SEEN /RARE [facility] Comment on above: Performed By: #### U MICRO, ERUR #### [facility] [address] [place] [address] Dr. Delmer Rea MUCOUS NONE SEEN Normal NONE SEEN [facility] Comment on above: Performed By: #### U MICRO, ERUR #### [facility] [address] [place] [address] Dr. Delmer Rea RBC 20-50 Abnormal 0-2 [facility] Comment on above: Performed By: #### U MICRO, ERUR #### [facility] [address] [place] [address] Dr. Delmer Rea WBC 10-20 Abnormal NONE SEEN [facility] Comment on above: Performed By: #### U MICRO, ERUR #### [facility] [address] [place] [address] Dr. Delmer Rea ALEXANDRE by IFAon 04-18-2022 Antinuclear Antibodies, IFA Negative Normal [facility] Comment on above: Result Comment: Nega tive <1:80 Borderline 1:80 Positive >1:80 ICAP nomenclature: AC-0 For more information about Hep-2 cell patterns use ANApatterns.org, the official website for the International Consensus on Antinuclear Antibody (ALEXANDRE) Patterns (ICAP). Performed By: #### U MICRO, ERUR #### [facility] [address] [place] [address] Dr. Delmer Rea ANTISTREPTOLYSIN O AB (ASO)o n 04-16-2022 Antistreptolysin O Ab 23.8 IU/mL Normal 0.0-200.0 [facility] Comment on above: Performed By: #### U MICRO, ERUR #### [facility] [address] [address] [address] Delmer Rea INSULINon 04-16-2022 Insulin 96.9 uIU/mL Critically high 2.6-24.9 [facility] Comment on above: Performed By: #### L IPA, DLDL, CON, LIPID, T7, CMP, TSH #### [facility] [address] [place] [address] Dr. Delmer Rea RHEUMATOID FACTORon 04-16-20 RA Latex Turbid. 13.5 IU/mL Normal <14.0 [facility] Comment on above: Performed By: #### L IPA, DLDL, CON, LIPID, T7, CMP, TSH #### [facility] [address] [place] [address] Dr. Delmer Rea BNPon 04-15-2022 Natriuretic peptide B (Bld) [Mass/Vol] 168.0 pg/mL Normal <=900.0 [facility] Comment on above: Performed By: #### L IPA, DLDL, CON, LIPID, T7, CMP, TSH #### [facility] [address] [place] [address] Dr. Delmer Rea CBC AUTO DIFFon 04-15-2022 BASO # 0.0 103/ul Normal 0.0-0.1 [facility] Comment on above: Performed By: #### L IPA, DLDL, CON, LIPID, T7, CMP, TSH #### [facility] [address] [place] [address] Dr. Delmer Rea Basophils/100 WBC (Bld) 0.4 % Normal 0.2-2.0 [facility] Comment on above: Performed By: #### L IPA, DLDL, CON, LIPID, T7, CMP, TSH #### [facility] [address] [place] [address] Dr. Delmer Rea EO # 0.1 103/ul Normal 0.0-0.7 [facility] Comment on above: Performed By: #### L IPA, DLDL, CON, LIPID, T7, CMP, TSH #### [facility] [address] [place] [address] Dr. Delmer Rea Eosinophils/100 WBC (Bld) 2.3 % Normal 0.9-7.0 [facility] Comment on above: Performed By: #### L IPA, DLDL, CON, LIPID, T7, CMP, TSH #### [facility] [address] [place] [address] Dr. Delmer Rea Erythrocyte distribution width (RBC) [Ratio] 11.9 % Normal 11.0-15.0 [facility] Comment on above: Performed By: #### L IPA, DLDL, CON, LIPID, T7, CMP, TSH #### [facility] [address] [place] [address] Dr. Delmer Rea Hematocrit (Bld) [Volume fraction] 37.8 % Normal 36.0-48.0 [facility] Comment on above: Performed By: #### L IPA, DLDL, CON, LIPID, T7, CMP, TSH #### [facility] [address] [place] [address] Dr. Delmer Rea Hemoglobin (Bld) [Mass/Vol] 12.7 g/dL Normal 12.0-16.0 [facility] Comment on above: Performed By: #### L IPA, DLDL, CON, LIPID, T7, CMP, TSH #### [facility] [address] [place] [address] Dr. Delmer Rea IG # 0.01 10e3/ul Normal 0.00-0.03 [facility] Comment on above: Performed By: #### L IPA, DLDL, CON, LIPID, T7, CMP, TSH #### [facility] [address] [place] [address] Dr. Delmer Rea IG % 0.2 % Normal 0.0-0.5 [facility] Comment on above: Performed By: #### L IPA, DLDL, CON, LIPID, T7, CMP, TSH #### [facility] [address] [address] [address] Delmer Rea LYMPH # 1.8 103/ul Normal 1.2-3.8 [facility] Comment on above: Performed By: #### L IPA, DLDL, CON, LIPID, T7, CMP, TSH #### [facility] [address] [address] [address] Delmer Rea Lymphocytes/100 WBC (Bld) 34.6 % Normal 20.5-60.0 [facility] Comment on above: Performed By: #### L IPA, DLDL, CON, LIPID, T7, CMP, TSH #### [facility] [address] [address] [address] Delmer Rea MANUAL DIFF REQ NO Normal [facility] Comment on above: Performed By: #### L IPA, DLDL, CON, LIPID, T7, CMP, TSH #### [facility] [address] [place] [address] Dr. Delmer Rea MCH (RBC) [Entitic mass] 28.7 pg Normal 26.7-34.0 [facility] Comment on above: Performed By: #### L IPA, DLDL, CON, LIPID, T7, CMP, TSH #### [facility] [address] [place] [address] Dr. Delmer Rea MCHC (RBC) [Mass/Vol] 33.6 g/dL Normal 29.9-35.2 [facility] Comment on above: Performed By: #### L IPA, DLDL, CON, LIPID, T7, CMP, TSH #### [facility] [address] [place] [address] Dr. Delmer Rea MCV (RBC) [Entitic vol] 85.5 fL Normal 81.0-99.0 [facility] Comment on above: Performed By: #### L IPA, DLDL, CON, LIPID, T7, CMP, TSH #### [facility] [address] [place] [address] Dr. Delmer Rea MONO # 0.5 103/ul Normal 0.3-0.8 [facility] Comment on above: Performed By: #### L IPA, DLDL, CON, LIPID, T7, CMP, TSH #### [facility] [address] [place] [address] Dr. Delmer Rea Monocytes/100 WBC (Bld) 8.6 % Normal 1.7-12.0 [facility] Comment on above: Performed By: #### L IPA, DLDL, CON, LIPID, T7, CMP, TSH #### [facility] [address] [address] [address] Delmer Rea NEUT # 2.8 103/ul Normal 1.4-6.5 [facility] Comment on above: Performed By: #### L IPA, DLDL, CON, LIPID, T7, CMP, TSH #### [facility] [address] [place] [address] Dr. Delmer Rea Neutrophils/100 WBC (Bld) 53.9 % Normal 43.0-75.0 [facility] Comment on above: Performed By: #### L IPA, DLDL, CON, LIPID, T7, CMP, TSH #### [facility] [address] [place] [address] Dr. Delmer Rea Platelet mean volume (Bld) [Entitic vol] 10.2 fL Normal 9.5-13.5 [facility] Comment on above: Performed By: #### L IPA, DLDL, CON, LIPID, T7, CMP, TSH #### [facility] [address] [place] [address] Dr. Delmer Rea PLT 326 103/ul Normal 150-450 [facility] Comment on above: Performed By: #### L IPA, DLDL, CON, LIPID, T7, CMP, TSH #### [facility] [address] [place] [address] Dr. Delmer Rea RBC 4.42 106/ul Normal 4.20-5.40 [facility] Comment on above: Performed By: #### L IPA, DLDL, CON, LIPID, T7, CMP, TSH #### [facility] [address] [place] [address] Dr. Delmer Rea WBC 5.2 103/ul Normal 4.0-11.0 [facility] Comment on above: Performed By: #### L IPA, DLDL, CON, LIPID, T7, CMP, TSH #### [facility] [address] [address] [address] Delmer Rea CRPon 04-15-2022 CRP [Mass/Vol] mg/L Normal <=1.0 [facility] Comment on above: Performed By: #### L IPA, DLDL, CON, LIPID, T7, CMP, TSH #### [facility] [address] [address] [address] Delmer Rea FREE THYROXINE INDEX T7on FTI 5.07 Critically high 1.30-4.50 [facility] Comment on above: Performed By: #### L IPA, DLDL, CON, LIPID, T7, CMP, TSH #### [facility] [address] [address] [address] Delmer Rea T3U 37.0 % Normal 30.0-39.0 [facility] Comment on above: Performed By: #### L IPA, DLDL, CON, LIPID, T7, CMP, TSH #### [facility] [address] [address] [address] Delmer Rea T4 [Mass/Vol] 13.70 ug/dL Normal 4.80-13.90 [facility] Comment on above: Performed By: #### L IPA, DLDL, CON, LIPID, T7, CMP, TSH #### [facility] [address] [address] [address] Delmer Rea GLYCOHEMOGLOBIN A1Con 2021 ADA RECOMMENDATION SEE BELOW Normal [facility] Comment on above: Result Comment: ADA RECOMMENDED LIMIT 4.0 - 6.0 ADA THERAPEUTIC TARGET < 7.0 ACTION SUGGESTED > 7.0 Performed By: #### L IPA, DLDL, CON, LIPID, T7, CMP, TSH #### [facility] [address] [place] [address] Dr. Delmer Rea Glucose [Mass/Vol] 174 mg/dL Normal [facility] Comment on above: Performed By: #### L IPA, DLDL, CON, LIPID, T7, CMP, TSH #### [facility] [address] [address] [address] Delmer Rea HbA1c (Bld) [Mass fraction] 7.7 % Critically high 4.5-6.2 [facility] Comment on above: Performed By: #### L IPA, DLDL, CON, LIPID, T7, CMP, TSH #### [facility] [address] [address] [address] Delmer Rea IRONon 04-15-2022 Iron [Mass/Vol] 84.0 ug/dL Normal 50.0-170.0 [facility] Comment on above: Performed By: #### U MICRO, ERUR #### [facility] [address] [address] [address] Delmer Rea LIPID PROFILEon 04-15-2022 CHOL-HDL RATIO NORM SEE BELOW Normal [facility] Comment on above: Result Comment: 3.3 - 4.4 LOW RISK 4.4 - 7.1 AVERAGE RISK 7.1 - 11.0 MODERATE RISK >11.0 HIGH RISK Performed By: #### L IPA, DLDL, CON, LIPID, T7, CMP, TSH #### [facility] [address] [address] [address] Delmer Rea Cholesterol [Mass/Vol] 239 mg/dL Critically high <=200 [facility] Comment on above: Performed By: #### L IPA, DLDL, CON, LIPID, T7, CMP, TSH #### [facility] [address] [address] [address] Delmer Rea Cholesterol in HDL [Mass/Vol] 43 mg/dL Normal 40-60 [facility] Comment on above: Performed By: #### L IPA, DLDL, CON, LIPID, T7, CMP, TSH #### [facility] [address] [address] [address] Delmer Rea Cholesterol in LDL [Mass/Vol] 131.8 mg/dL Normal [facility] Comment on above: Performed By: #### L IPA, DLDL, CON, LIPID, T7, CMP, TSH #### [facility] [address] [place] [address] Dr. Delmer Rea Cholesterol.total/C holesterol in HDL [Mass ratio] 5.6 {ratio} Normal [facility] Comment on above: Performed By: #### L IPA, DLDL, CON, LIPID, T7, CMP, TSH #### [facility] [address] [address] [address] Delmer Rea HDL NORMAL > or = 60 mg/dl - LO W CARDIOVASCULAR RISK <40 mg/dl - HIGH CARDIOVASCULAR RISK Normal [facility] Comment on above: Performed By: #### L IPA, DLDL, CON, LIPID, T7, CMP, TSH #### [facility] [address] [address] [address] Delmer Rea LDL CALC NORMAL SEE BELOW Normal [facility] Comment on above: Result Comment: <100 mg/dl OPTIMAL 100 - 129 mg/dl NEAR OR ABOVE OPTIMAL 130 - 159 mg/dl BORDERLINE HIGH 160 - 189 mg/dl HIGH >190 mg/dl VERY HIGH Performed By: #### L IPA, DLDL, CON, LIPID, T7, CMP, TSH #### [facility] [address] [address] [address] Delmer Rea Triglyceride [Mass/Vol] 321 mg/dL Critically high <=150 [facility] Comment on above: Performed By: #### L IPA, DLDL, CON, LIPID, T7, CMP, TSH #### [facility] [address] [address] [address] Delmer Rea VLDL CALC 64.2 mg/dL Normal [facility] Comment on above: Performed By: #### L IPA, DLDL, CON, LIPID, T7, CMP, TSH #### [facility] [address] [address] [address] Delmer Rea PROF 14(COMP METB)on 022 Albumin [Mass/Vol] 3.6 g/dL Normal 3.4-5.0 [facility] Comment on above: Performed By: #### L IPA, DLDL, CON, LIPID, T7, CMP, TSH #### [facility] [address] [address] [address] Delmer Rea Albumin/Globulin [Mass ratio] 0.9 {ratio} Normal [facility] Comment on above: Performed By: #### L IPA, DLDL, CON, LIPID, T7, CMP, TSH #### [facility] [address] [place] [address] Dr. Delmer Rea ALP [Catalytic activity/Vol] 98 U/L Normal 46-116 [facility] Comment on above: Performed By: #### L IPA, DLDL, CON, LIPID, T7, CMP, TSH #### [facility] [address] [place] [address] Dr. Delmer Rea ALT [Catalytic activity/Vol] 21 U/L Normal 14-59 [facility] Comment on above: Performed By: #### L IPA, DLDL, CON, LIPID, T7, CMP, TSH #### [facility] [address] [place] [address] Dr. Delmer Rea Anion gap [Moles/Vol] 15.8 mmol/L Normal [facility] Comment on above: Performed By: #### L IPA, DLDL, CON, LIPID, T7, CMP, TSH #### [facility] [address] [place] [address] Dr. Delmer Rea AST [Catalytic activity/Vol] 10 U/L Critically low 15-37 [facility] Comment on above: Performed By: #### L IPA, DLDL, CON, LIPID, T7, CMP, TSH #### [facility] [address] [place] [address] Dr. Delmer Rea Bilirubin [Mass/Vol] 0.6 mg/dL Normal 0.2-1.0 [facility] Comment on above: Performed By: #### L IPA, DLDL, CON, LIPID, T7, CMP, TSH #### [facility] [address] [place] [address] Dr. Delmer Rea Calcium [Mass/Vol] 9.4 mg/dL Normal 8.5-10.1 [facility] Comment on above: Performed By: #### L IPA, DLDL, CON, LIPID, T7, CMP, TSH #### [facility] [address] [place] [address] Dr. Delmer Rea Chloride [Moles/Vol] 105 mmol/L Normal 98-107 [facility] Comment on above: Performed By: #### L IPA, DLDL, CON, LIPID, T7, CMP, TSH #### [facility] [address] [address] [address] eDlmer Rea CO2 [Moles/Vol] 26.2 mmol/L Normal 21.0-32.0 [facility] Comment on above: Performed By: #### L IPA, DLDL, CON, LIPID, T7, CMP, TSH #### [facility] [address] [place] [address] Dr. Delmer Rea Creatinine [Mass/Vol] 1.26 mg/dL Critically high 0.55-1.02 [facility] Comment on above: Performed By: #### L IPA, DLDL, CON, LIPID, T7, CMP, TSH #### [facility] [address] [place] [address] Dr. Delmer Rea EGFR-AF TURKISH 54 mL/min/1.73m2 Critically low >=60 [facility] Comment on above: Performed By: #### L IPA, DLDL, CON, LIPID, T7, CMP, TSH #### [facility] [address] [place] [address] Dr. Delmer Rea EGFR-NON AF TURKISH 45 mL/min/1.73m2 Critically low >=60 [facility] Comment on above: Performed By: #### L IPA, DLDL, CON, LIPID, T7, CMP, TSH #### [facility] [address] [place] [address] Dr. Delmer Rea Globulin (S) [Mass/Vol] 3.9 g/dL Normal [facility] Comment on above: Performed By: #### L IPA, DLDL, CON, LIPID, T7, CMP, TSH #### [facility] [address] [place] [address] Dr. Delmer Rea Glucose [Mass/Vol] 125 mg/dL Critically high 74-106 [facility] Comment on above: Performed By: #### L IPA, DLDL, CON, LIPID, T7, CMP, TSH #### [facility] [address] [address] [address] Delmer Rea Potassium [Moles/Vol] 4.0 mmol/L Normal 3.5-5.1 [facility] Comment on above: Performed By: #### L IPA, DLDL, CON, LIPID, T7, CMP, TSH #### [facility] [address] [address] [address] Delmer Rea Protein [Mass/Vol] 7.5 g/dL Normal 6.4-8.2 [facility] Comment on above: Performed By: #### L IPA, DLDL, CON, LIPID, T7, CMP, TSH #### [facility] [address] [address] [address] Delmer Rea Sodium [Moles/Vol] 143 mmol/L Normal 136-145 [facility] Comment on above: Performed By: #### L IPA, DLDL, CON, LIPID, T7, CMP, TSH #### [facility] [address] [place] [address] Dr. Delmer Rea Urea nitrogen [Mass/Vol] 34.0 mg/dL Critically high 7.0-18.0 [facility] Comment on above: Performed By: #### L IPA, DLDL, CON, LIPID, T7, CMP, TSH #### [facility] [address] [place] [address] Dr. Delmer Rea Urea nitrogen/Creatinine [Mass ratio] 27.0 mg/mg Normal [facility] Comment on above: Performed By: #### L IPA, DLDL, CON, LIPID, T7, CMP, TSH #### [facility] [address] [place] [address] Dr. Delmer Rea TSHon 04-15-2022 TSH 0.009 uIU/mL Critically low 0.358-3.740 [facility] Comment on above: Performed By: #### L IPA, DLDL, CON, LIPID, T7, CMP, TSH #### [facility] [address] [place] [address] Dr. Delmer Rea TSH RANGE SEE BELOW Normal [facility] Comment on above: Result Comment: <0.3 4 UIU/ml HYPERTHYROID 0.34-5.60 UIU/ml EUTHYROID >5.60 UIU/ml HYPOTHYROID Performed By: #### L IPA, DLDL, CON, LIPID, T7, CMP, TSH #### [facility] [address] [address] [address] Delmer Rea URIC ACID SERUMon 04-15-2022 Urate [Mass/Vol] 7.1 mg/dL Critically high 2.6-6.0 [facility] Comment on above: Performed By: #### L IPA, DLDL, CON, LIPID, T7, CMP, TSH #### [facility] [address] [address] [address] Delmer Rea VITAMIN D 25 OHon 04-15-2022 VIT D 25-OH 23.8 ng/mL Normal [facility] Comment on above: Performed By: #### U MICRO, ERUR #### [facility] [address] [address] [address] Delmer Rea VIT D RANGES SEE BELOW Normal [facility] Comment on above: Result Comment: <20 ng/mL Vit D deficient 20 - <30 ng/mL Vit D insufficient 30 - 100 ng/mL Vit D sufficient >100 ng/mL Potential Toxicity Performed By: #### U MICRO, ERUR #### [facility] [address] [address] [address] Delmer Bowman 11-09-2021 CNPN Telephone (GENHome Team TherapyI) -------- ASA THOMPSON ([id number]) 1970 F Date Time Provider Department 11/09/21 ABRAHAM PACHECO During your visit today, we recorded the following information about you: Abraham Pacheco RN 11/09/2021 4:54 PM Addendum BMI SPECIALTY CARE COORDINATION TELEPHONE ENCOUNTER Returning patient call regarding rescheduling RYGB. Patient cancelled PACC appointments for surgery originally scheduled 07/15/21. Advised patient I would sent message to Navigation team to follow up with recommendation. Allergies As of Date: 11/09/2021 Noted Allergy Reaction CIPROFLOXACIN 04/05/2016 4 - Hives HYDROMORPHONE 03/12/2020 4 - Hives MORPHINE 04/01/2016 16 - Unknown PENICILLINS 04/01/2016 16 - Unknown Date Reviewed: 06/21/2021 Reviewed by: Sterling Biggs MD - Fully Assessed Reason for Visit: Returning Patient's Call [[id number]] Prescriptions as of 11/09/2021 - blood sugar diagnostic (TRUE METRIX GLUCOSE TEST STRIP) test strip Inject 1 Strip subcutaneously twice daily. - Insulin Syringe-Needle U-100 (BD INSULIN SYRINGE ULTRA-FINE) 1 mL 31 gauge x 5/16 Inject 1 Syringe subcutaneously twice daily. - colesevelam (WELCHOL) 625 mg tablet Take 1 tablet by mouth once daily. - hydroCHLOROthiazide (HYDRODIURIL, ESIDRIX) 25 mg tablet Take 1 tablet by mouth once daily. - metFORMIN (GLUCOPHAGE) 500 mg tablet Take 1 tablet by mouth twice daily. - predniSONE (DELTASONE) 10 mg tablet Take 1 tablet by mouth once daily. - aspirin, enteric coated (ASPIRIN, ENTERIC COATED) 81 mg EC tablet Take 81 mg by mouth once daily. - atorvastatin (LIPITOR) 20 mg tablet Take 20 mg by mouth once daily. - HUMULIN 70/30 100 unit/mL (70-30) - levothyroxine (SYNTHROID) 125 mcg tablet Take 125 mcg by mouth once daily. - loratadine (CLARITIN) 10 mg tablet Take 10 mg by mouth as needed. - ondansetron orally disintegrating (ZOFRAN ODT) 4 mg disintegrating tablet Take 4 mg by mouth as needed. Problem List As Of Date 11/09/2021 Noted Resolved Preoperative cardiovascular examination [Z01.81*04/05/2016 Class 3 severe obesity with serious comorbidity*03/17/2020 Type 2 diabetes mellitus without complication, *03/17/2020 Diabetes mellitus type 2 in obese (HCC) [E11.69*06/21/2021 Essential (primary) hypertension [I10] 06/21/2021 Morbid obesity (HCC) [E66.01] 06/21/2021 Encounter Status:Closed by ABRAHAM PACHECO on 11/09/21 [facility] CNPN Telephone (GENBMI) -------- ASA THOMPSON ([id number]) 1970 F Date Time Provider Department 10/05/21 ABRAHAM PACHECO GENI During your visit today, we recorded the following information about you: Abraham Pacheco RN 10/05/2021 10:06 AM Signed Called patient; no answer; left voice message with my call back phone number. Allergies As of Date: 10/05/2021 Noted Allergy Reaction CIPROFLOXACIN 04/05/2016 4 - Hives HYDROMORPHONE 03/12/2020 4 - Hives MORPHINE 04/01/2016 16 - Unknown PENICILLINS 04/01/2016 16 - Unknown Date Reviewed: 06/21/2021 Reviewed by: Sterling Biggs MD - Fully Assessed Reason for Visit: BMI Follow Up [1566] Prescriptions as of 10/05/2021 - blood sugar diagnostic (TRUE METRIX GLUCOSE TEST STRIP) test strip Inject 1 Strip subcutaneously twice daily. - Insulin Syringe-Needle U-100 (BD INSULIN SYRINGE ULTRA-FINE) 1 mL 31 gauge x 5/16 Inject 1 Syringe subcutaneously twice daily. - colesevelam (WELCHOL) 625 mg tablet Take 1 tablet by mouth once daily. - hydroCHLOROthiazide (HYDRODIURIL, ESIDRIX) 25 mg tablet Take 1 tablet by mouth once daily. - metFORMIN (GLUCOPHAGE) 500 mg tablet Take 1 tablet by mouth twice daily. - predniSONE (DELTASONE) 10 mg tablet Take 1 tablet by mouth once daily. - aspirin, enteric coated (ASPIRIN, ENTERIC COATED) 81 mg EC tablet Take 81 mg by mouth once daily. - atorvastatin (LIPITOR) 20 mg tablet Take 20 mg by mouth once daily. - HUMULIN 70/30 100 unit/mL (70-30) - levothyroxine (SYNTHROID) 125 mcg tablet Take 125 mcg by mouth once daily. - loratadine (CLARITIN) 10 mg tablet Take 10 mg by mouth as needed. - ondansetron orally disintegrating (ZOFRAN ODT) 4 mg disintegrating tablet Take 4 mg by mouth as needed. Problem List As Of Date 10/05/2021 Noted Resolved Preoperative cardiovascular examination [Z01.81*04/05/2016 Class 3 severe obesity with serious comorbidity*03/17/2020 Type 2 diabetes mellitus without complication, *03/17/2020 Diabetes mellitus type 2 in obese (HCC) [E11.69*06/21/2021 Essential (primary) hypertension [I10] 06/21/2021 Morbid obesity (HCC) [E66.01] 06/21/2021 Encounter Status:Closed by ABRAHAM PACHECO on 10/05/21 [facility] ASA THOMPSON ([id number]) 1970 F Date Time Provider Department 07/29/21 ABRAHAM PACHECO GENI During your visit today, we recorded the following information about you: Abraham Pacheco RN 07/29/2021 3:19 PM Signed BMI SPECIALTY CARE COORDINATION TELEPHONE ENCOUNTER Follow up call placed to patient, no answer phone; left voice message with my call back phone number. Abraham Pacheco RN July 29, 2021 3:19 PM Allergies As of Date: 07/29/2021 Noted Allergy Reaction CIPROFLOXACIN 04/05/2016 4 - Hives HYDROMORPHONE 03/12/2020 4 - Hives MORPHINE 04/01/2016 16 - Unknown PENICILLINS 04/01/2016 16 - Unknown Date Reviewed: 06/21/2021 Reviewed by: Sterling Biggs MD - Fully Assessed Reason for Visit: BMI Follow Up [6806] Prescriptions as of 07/29/2021 - blood sugar diagnostic (TRUE METRIX GLUCOSE TEST STRIP) test strip Inject 1 Strip subcutaneously twice daily. - Insulin Syringe-Needle U-100 (BD INSULIN SYRINGE ULTRA-FINE) 1 mL 31 gauge x 03/21 Inject 1 Syringe subcutaneously twice daily. - colesevelam (WELCHOL) 625 mg tablet Take 1 tablet by mouth once daily. - hydroCHLOROthiazide (HYDRODIURIL, ESIDRIX) 25 mg tablet Take 1 tablet by mouth once daily. - metFORMIN (GLUCOPHAGE) 500 mg tablet Take 1 tablet by mouth twice daily. - predniSONE (DELTASONE) 10 mg tablet Take 1 tablet by mouth once daily. - aspirin, enteric coated (ASPIRIN, ENTERIC COATED) 81 mg EC tablet Take 81 mg by mouth once daily. - atorvastatin (LIPITOR) 20 mg tablet Take 20 mg by mouth once daily. - HUMULIN 70/30 100 unit/mL (70-30) - levothyroxine (SYNTHROID) 125 mcg tablet Take 125 mcg by mouth once daily. - loratadine (CLARITIN) 10 mg tablet Take 10 mg by mouth as needed. - ondansetron orally disintegrating (ZOFRAN ODT) 4 mg disintegrating tablet Take 4 mg by mouth as needed. Problem List As Of Date 07/29/2021 Noted Resolved Preoperative cardiovascular examination [Z01.81*04/05/2016 Class 3 severe obesity with serious comorbidity*03/17/2020 Type 2 diabetes mellitus without complication, *03/17/2020 Diabetes mellitus type 2 in obese (HCC) [E11.69*06/21/2021 Essential (primary) hypertension [I10] 06/21/2021 Morbid obesity (HCC) [E66.01] 06/21/2021 Encounter Status:Closed by ABRAHAM PACHECO on 07/29/[address] [facility]-20[facility] -------- ASA THOMPSON ([id number]) 1970 F Date Time Provider Department 07/14/21 ABRAHAM PACHECO During your visit today, we recorded the following information about you: Abraham Pacheco RN 07/14/2021 3:04 PM Addendum Follow up call placed to patient, no answer phone; left voice message with my call back phone number. [phone] Cancelled surgery scheduled for 07/15/21. No call back from patient. Patient cancelled PACC appointment and COVID test. Abraham Pacheco RN July 14, 2021 3:04 PM Allergies As of Date: 07/14/2021 Noted Allergy Reaction CIPROFLOXACIN 04/05/2016 4 - Hives HYDROMORPHONE 03/12/2020 4 - Hives MORPHINE 04/01/2016 16 - Unknown PENICILLINS 04/01/2016 16 - Unknown Date Reviewed: 06/21/2021 Reviewed by: Sterling Biggs MD - Fully Assessed Reason for Visit: BMI Follow Up [1566] Prescriptions as of 07/14/2021 - blood sugar diagnostic (TRUE METRIX GLUCOSE TEST STRIP) test strip Inject 1 Strip subcutaneously twice daily. - Insulin Syringe-Needle U-100 (BD INSULIN SYRINGE ULTRA-FINE) 1 mL 31 gauge x 5/16 Inject 1 Syringe subcutaneously twice daily. - colesevelam (WELCHOL) 625 mg tablet Take 1 tablet by mouth once daily. - hydroCHLOROthiazide (HYDRODIURIL, ESIDRIX) 25 mg tablet Take 1 tablet by mouth once daily. - metFORMIN (GLUCOPHAGE) 500 mg tablet Take 1 tablet by mouth twice daily. - predniSONE (DELTASONE) 10 mg tablet Take 1 tablet by mouth once daily. - aspirin, enteric coated (ASPIRIN, ENTERIC COATED) 81 mg EC tablet Take 81 mg by mouth once daily. - atorvastatin (LIPITOR) 20 mg tablet Take 20 mg by mouth once daily. - HUMULIN 70/30 100 unit/mL (70-30) - levothyroxine (SYNTHROID) 125 mcg tablet Take 125 mcg by mouth once daily. - loratadine (CLARITIN) 10 mg tablet Take 10 mg by mouth as needed. - ondansetron orally disintegrating (ZOFRAN ODT) 4 mg disintegrating tablet Take 4 mg by mouth as needed. Problem List As Of Date 07/14/2021 Noted Resolved Preoperative cardiovascular examination [Z01.81*04/05/2016 Class 3 severe obesity with serious comorbidity*03/17/2020 Type 2 diabetes mellitus without complication, *03/17/2020 Diabetes mellitus type 2 in obese (HCC) [E11.69*06/21/2021 Essential (primary) hypertension [I10] 06/21/2021 Morbid obesity (HCC) [E66.01] 06/21/2021 Encounter Status:Closed by ABRAHAM PACHECO on 07/14/21 [facility] ASA THOMPSON ([id number]) 1970 F Date Time Provider Department 07/14/21 JEANNINE TAMEZ [facility] During your visit today, we recorded the following information about you: Jeannine Tamez, PhD 07/14/2021 1:02 PM Signed [facility] Attempted to contact pt to offer emotional support ahead of scheduled surgical procedure. Pt unavailable. Jeannine Tamez, PhD Psychologist Allergies As of Date: 07/14/2021 Noted Allergy Reaction CIPROFLOXACIN 04/05/2016 4 - Hives HYDROMORPHONE 03/12/2020 4 - Hives MORPHINE 04/01/2016 16 - Unknown PENICILLINS 04/01/2016 16 - Unknown Date Reviewed: 06/21/2021 Reviewed by: Sterling Biggs MD - Fully Assessed Reason for Visit: Patient Update [1234] Prescriptions as of 07/14/2021 - blood sugar diagnostic (TRUE METRIX GLUCOSE TEST STRIP) test strip Inject 1 Strip subcutaneously twice daily. - Insulin Syringe-Needle U-100 (BD INSULIN SYRINGE ULTRA-FINE) 1 mL 31 gauge x 03/21 Inject 1 Syringe subcutaneously twice daily. - colesevelam (WELCHOL) 625 mg tablet Take 1 tablet by mouth once daily. - hydroCHLOROthiazide (HYDRODIURIL, ESIDRIX) 25 mg tablet Take 1 tablet by mouth once daily. - metFORMIN (GLUCOPHAGE) 500 mg tablet Take 1 tablet by mouth twice daily. - predniSONE (DELTASONE) 10 mg tablet Take 1 tablet by mouth once daily. - aspirin, enteric coated (ASPIRIN, ENTERIC COATED) 81 mg EC tablet Take 81 mg by mouth once daily. - atorvastatin (LIPITOR) 20 mg tablet Take 20 mg by mouth once daily. - HUMULIN 70/30 100 unit/mL (70-30) - levothyroxine (SYNTHROID) 125 mcg tablet Take 125 mcg by mouth once daily. - loratadine (CLARITIN) 10 mg tablet Take 10 mg by mouth as needed. - ondansetron orally disintegrating (ZOFRAN ODT) 4 mg disintegrating tablet Take 4 mg by mouth as needed. Problem List As Of Date 07/14/2021 Noted Resolved Preoperative cardiovascular examination [Z01.81*04/05/2016 Class 3 severe obesity with serious comorbidity*03/17/2020 Type 2 diabetes mellitus without complication, *03/17/2020 Diabetes mellitus type 2 in obese (HCC) [E11.69*06/21/2021 Essential (primary) hypertension [I10] 06/21/2021 Morbid obesity (HCC) [E66.01] 06/21/2021 Encounter Status:Closed by JEANNINE TAMEZ on 07/14/21 [facility] CNPN Telephone (GENI) -------- SAA THOMPSON ([id number]) 1970 F Date Time Provider Department 07/13/21 ABRAHAM PACHECO During your visit today, we recorded the following information about you: Abraham Pacheco RN 07/13/2021 4:55 PM Addendum BMI follow up call. No answer phone;left voice message asking for call back. Abraham Pacheco RN July 13, 2021 11:18 AM Follow up call placed to patient, no answer phone; left voice message with my call back phone number. Abraham Pacheco RN July 13, 2021 4:55 PM Allergies As of Date: 07/13/2021 Noted Allergy Reaction CIPROFLOXACIN 04/05/2016 4 - Hives HYDROMORPHONE 03/12/2020 4 - Hives MORPHINE 04/01/2016 16 - Unknown PENICILLINS 04/01/2016 16 - Unknown Date Reviewed: 06/21/2021 Reviewed by: Sterling Biggs MD - Fully Assessed Reason for Visit: BMI Follow Up [1566] Prescriptions as of 07/13/2021 - blood sugar diagnostic (TRUE METRIX GLUCOSE TEST STRIP) test strip Inject 1 Strip subcutaneously twice daily. - Insulin Syringe-Needle U-100 (BD INSULIN SYRINGE ULTRA-FINE) 1 mL 31 gauge x 5/16 Inject 1 Syringe subcutaneously twice daily. - colesevelam (WELCHOL) 625 mg tablet Take 1 tablet by mouth once daily. - hydroCHLOROthiazide (HYDRODIURIL, ESIDRIX) 25 mg tablet Take 1 tablet by mouth once daily. - metFORMIN (GLUCOPHAGE) 500 mg tablet Take 1 tablet by mouth twice daily. - predniSONE (DELTASONE) 10 mg tablet Take 1 tablet by mouth once daily. - aspirin, enteric coated (ASPIRIN, ENTERIC COATED) 81 mg EC tablet Take 81 mg by mouth once daily. - atorvastatin (LIPITOR) 20 mg tablet Take 20 mg by mouth once daily. - HUMULIN 70/30 100 unit/mL (70-30) - levothyroxine (SYNTHROID) 125 mcg tablet Take 125 mcg by mouth once daily. - loratadine (CLARITIN) 10 mg tablet Take 10 mg by mouth as needed. - ondansetron orally disintegrating (ZOFRAN ODT) 4 mg disintegrating tablet Take 4 mg by mouth as needed. Problem List As Of Date 07/13/2021 Noted Resolved Preoperative cardiovascular examination [Z01.81*04/05/2016 Class 3 severe obesity with serious comorbidity*03/17/2020 Type 2 diabetes mellitus without complication, *03/17/2020 Diabetes mellitus type 2 in obese (HCC) [E11.69*06/21/2021 Essential (primary) hypertension [I10] 06/21/2021 Morbid obesity (HCC) [E66.01] 06/21/2021 Encounter Status:Closed by ABRAHAM PAC[facility]CO [facility] 07/13/[facility] C[facility] (GENBMI) -------- ASA THOMPSON ([id number]) 1970 F Date Time Provider Department 07/08/21 ABRAHAM PACHECO [facility] During your visit today, we recorded the following information about you: Abraham Pacheco RN 07/08/2021 4:55 PM Signed BMI SPECIALTY CARE COORDINATION TELEPHONE ENCOUNTER Follow up call placed to patient to see if tolerating liquid diet. Patient states I am just not good at liquid diets. I can eat jello and sugar free things like applesauce, but I can not tolerate protein shakes. Patient reports has not read Flipaste message from Nutrition but will do so today and respond. Reviewed liquid diet instructions with patient. Patient has Premier Protein and Slim fast shakes in house. Recommend if using Premier protein must dilute with 2/3 cup fair life milk or almond 30 milk. Patient contact her Primary Care Physician office regarding reports of low blood sugar and medication review. Patient states she does not feel supported by her provider and was advised to stop all medications the morning of surgery. Patient preparing to have surgery on 07-15-21 and is aware to hold aspirin 7 days prior to surgery. Patient has [facility] appointment on 07/13/21. Today, upon waking blood sugar level 154 took 40 units insulin according to sliding scale. Skipped breakfast, for lunch ate macaroni salad, patient states; I probably won't eat dinner I am not really very hungry. Reviewed liquid diet instructions and need to be compliant with BMI recommendations. Patient verbalized understanding liquid diet to continue two weeks after surgery until cleared to advance by surgical team at follow up. Patient to follow up with Nutrition for recommendation. I will follow up with patient on 07/13/21. Patient has BMI help card numbers to call if has any further questions or concerns. Abraham Pacheco RN July 08, 2021 4:51 PM Allergies As of Date: 07/08/2021 Noted Allergy Reaction CIPROFLOXACIN 04/05/2016 4 - Hives HYDROMORPHONE 03/12/2020 4 - Hives MORPHINE 04/01/2016 16 - Unknown PENICILLINS 04/01/2016 16 - Unknown Date Reviewed: 06/21/2021 Reviewed by: Sterling Biggs MD - Fully Assessed Reason for Visit: BMI Follow Up [1566] Prescriptions as of 07/15/2021 - blood sugar diagnostic (TRUE METRIX GLUCOSE TEST STRIP) test strip Inject 1 Strip subcutaneously twice daily. - Insulin Syringe-Needle U-100 (BD INSULIN SYRINGE ULTRA-FINE) 1 mL 31 gauge x 16 Inject 1 Syringe subcutaneously twice daily. - colesevelam (WELCHOL) 625 mg tablet Take 1 tablet by mouth once daily. - hydroCHLOROthiazide (HYDRODIURIL, ESIDRIX) 25 mg tablet Take 1 tablet by mouth once daily. - metFORMIN (GLUCOPHAGE) 500 mg tablet Take 1 tablet by mouth twice daily. - predniSONE (DELTASONE) 10 mg tablet Take 1 tablet by mouth once daily. - aspirin, enteric coated (ASPIRIN, ENTERIC COATED) 81 mg EC tablet Take 81 mg by mouth once daily. - atorvastatin (LIPITOR) 20 mg tablet Take 20 mg by mouth once daily. - HUMULIN 70/30 100 unit/mL (70-30) - levothyroxine (SYNTHROID) 125 mcg tablet Take 125 mcg by mouth once daily. - loratadine (CLARITIN) 10 mg tablet Take 10 mg by mouth as needed. - ondansetron orally disintegrating (ZOFRAN ODT) 4 mg disintegrating tablet Take 4 mg by mouth as needed. Problem List As Of Date 07/08/2021 Noted Resolved Preoperative cardiovascular examination [Z01.81*04/05/2016 Class 3 severe obesity with serious comorbidity*03/17/2020 Type 2 diabetes mellitus without complication, *03/17/2020 Diabetes mellitus type 2 in obese (HCC) [E11.69*06/21/2021 Essential (primary) hypertension [I10] 06/21/2021 Morbid obesity (HCC) [E66.01] 06/21/2021 Encounter Status:Closed by ABRAHAM PACHECO on 9/9/21 [facility] Telephone (GENI) -------- ASA THOMPSON ([id number]) 1970 F Date Time Provider Department 07/08/21 ABRAHAM PACHECO [facility] During your visit today, we recorded the following information about you: Allergies As of Date: 07/08/2021 Noted Allergy Reaction CIPROFLOXACIN 04/05/2016 4 - Hives HYDROMORPHONE 03/12/2020 4 - Hives MORPHINE 04/01/2016 16 - Unknown PENICILLINS 04/01/2016 16 - Unknown Date Reviewed: 06/21/2021 Reviewed by: Sterling Biggs MD - Fully Assessed Reason for Visit: BMI Follow Up [1566] Prescriptions as of 07/08/2021 - blood sugar diagnostic (TRUE METRIX GLUCOSE TEST STRIP) test strip Inject 1 Strip subcutaneously twice daily. - Insulin Syringe-Needle U-100 (BD INSULIN SYRINGE ULTRA-FINE) 1 mL 31 gauge x 5/16 Inject 1 Syringe subcutaneously twice daily. - colesevelam (WELCHOL) 625 mg tablet Take 1 tablet by mouth once daily. - hydroCHLOROthiazide (HYDRODIURIL, ESIDRIX) 25 mg tablet Take 1 tablet by mouth once daily. - metFORMIN (GLUCOPHAGE) 500 mg tablet Take 1 tablet by mouth twice daily. - predniSONE (DELTASONE) 10 mg tablet Take 1 tablet by mouth once daily. - aspirin, enteric coated (ASPIRIN, ENTERIC COATED) 81 mg EC tablet Take 81 mg by mouth once daily. - atorvastatin (LIPITOR) 20 mg tablet Take 20 mg by mouth once daily. - HUMULIN 70/30 100 unit/mL (70-30) - levothyroxine (SYNTHROID) 125 mcg tablet Take 125 mcg by mouth once daily. - loratadine (CLARITIN) 10 mg tablet Take 10 mg by mouth as needed. - ondansetron orally disintegrating (ZOFRAN ODT) 4 mg disintegrating tablet Take 4 mg by mouth as needed. Problem List As Of Date 07/08/2021 Noted Resolved Preoperative cardiovascular examination [Z01.81*04/05/2016 Class 3 severe obesity with serious comorbidity*03/17/2020 Type 2 diabetes mellitus without complication, *03/17/2020 Diabetes mellitus type 2 in obese (HCC) [E11.69*06/21/2021 Essential (primary) hypertension [I10] 06/21/2021 Morbid obesity (HCC) [E66.01] 06/21/2021 Encounter Status:Closed by ABRAHAM PACHECO on 07/08/[address] [facility] 07-07-2021 CNPN Telephone (GENBMI) -------- ASA THOMPSON ([id number]) 1970 F Date Time Provider Department 07/07/21 ABRAHAM PACHECO GENI During your visit today, we recorded the following information about you: Abraham Pacheco RN 07/07/2021 10:01 AM Signed Follow up call placed to patient; denies low blood sugar, states saw her Primary Care Physician 07/06/21. Patient confirmed receipt of message from Nutrition team 07/06/21 but did not listen to her messages until last night. Advised patient of MyChart message from Nutrition team asking for response from patient. Patient states she is at a convention with her grandchildren and will need to call RN back this afternoon after 2 P.M. Abraham Pacheco RN July 07, 2021 10:01 AM Allergies As of Date: 07/07/2021 Noted Allergy Reaction CIPROFLOXACIN 04/05/2016 4 - Hives HYDROMORPHONE 03/12/2020 4 - Hives MORPHINE 04/01/2016 16 - Unknown PENICILLINS 04/01/2016 16 - Unknown Date Reviewed: 06/21/2021 Reviewed by: Sterling Biggs MD - Fully Assessed Reason for Visit: BMI Follow Up [1566] Prescriptions as of 07/07/2021 - blood sugar diagnostic (TRUE METRIX GLUCOSE TEST STRIP) test strip Inject 1 Strip subcutaneously twice daily. - Insulin Syringe-Needle U-100 (BD INSULIN SYRINGE ULTRA-FINE) 1 mL 31 gauge x 5/16 Inject 1 Syringe subcutaneously twice daily. - colesevelam (WELCHOL) 625 mg tablet Take 1 tablet by mouth once daily. - hydroCHLOROthiazide (HYDRODIURIL, ESIDRIX) 25 mg tablet Take 1 tablet by mouth once daily. - metFORMIN (GLUCOPHAGE) 500 mg tablet Take 1 tablet by mouth twice daily. - predniSONE (DELTASONE) 10 mg tablet Take 1 tablet by mouth once daily. - aspirin, enteric coated (ASPIRIN, ENTERIC COATED) 81 mg EC tablet Take 81 mg by mouth once daily. - atorvastatin (LIPITOR) 20 mg tablet Take 20 mg by mouth once daily. - HUMULIN 70/30 100 unit/mL (70-30) - levothyroxine (SYNTHROID) 125 mcg tablet Take 125 mcg by mouth once daily. - loratadine (CLARITIN) 10 mg tablet Take 10 mg by mouth as needed. - ondansetron orally disintegrating (ZOFRAN ODT) 4 mg disintegrating tablet Take 4 mg by mouth as needed. Problem List As Of Date 07/07/2021 Noted Resolved Preoperative cardiovascular examination [Z01.81*04/05/2016 Class 3 severe obesity with serious comorbidity*03/17/2020 Type 2 diabetes mellitus without complication, *03/17/2020 Diabetes mellitus type 2 in obese (HCC) [E11.69*06/21/2021 Essential (primary) hypertension [I10] 06/21/2021 Morbid obesity (HCC) [E66.01] 06/21/2021 Encounter Status:Closed by ABRAHAM PACHECO on 07/07/[address] [facility] 07-05-2021 CNPN Telephone ([place]) -------- ASA THOMPSON ([id number]) 1970 F Date Time Provider Department 07/05/21 ABRAHAM PACHECO During your visit today, we recorded the following information about you: Abraham Pacheco RN 07/05/2021 8:59 AM Addendum Returning patient call. Patient reports unable to tolerate protein drinks has been eating small meals in preparation for upcoming bariatric surgery on 07/15/21. Advised patient I would reach out to Nutrition for recommendation and follow up. Abraham Pacheco RN July 05, 2021 8:57 AM Allergies As of Date: 07/05/2021 Noted Allergy Reaction CIPROFLOXACIN 04/05/2016 4 - Hives HYDROMORPHONE 03/12/2020 4 - Hives MORPHINE 04/01/2016 16 - Unknown PENICILLINS 04/01/2016 16 - Unknown Date Reviewed: 06/21/2021 Reviewed by: Sterling Biggs MD - Fully Assessed Reason for Visit: Returning Patient's Call [408] Prescriptions as of 07/06/2021 - blood sugar diagnostic (TRUE METRIX GLUCOSE TEST STRIP) test strip Inject 1 Strip subcutaneously twice daily. - Insulin Syringe-Needle U-100 (BD INSULIN SYRINGE ULTRA-FINE) 1 mL 31 gauge x 5/16 Inject 1 Syringe subcutaneously twice daily. - colesevelam (WELCHOL) 625 mg tablet Take 1 tablet by mouth once daily. - hydroCHLOROthiazide (HYDRODIURIL, ESIDRIX) 25 mg tablet Take 1 tablet by mouth once daily. - metFORMIN (GLUCOPHAGE) 500 mg tablet Take 1 tablet by mouth twice daily. - predniSONE (DELTASONE) 10 mg tablet Take 1 tablet by mouth once daily. - aspirin, enteric coated (ASPIRIN, ENTERIC COATED) 81 mg EC tablet Take 81 mg by mouth once daily. - atorvastatin (LIPITOR) 20 mg tablet Take 20 mg by mouth once daily. - HUMULIN 70/30 100 unit/mL (70-30) - levothyroxine (SYNTHROID) 125 mcg tablet Take 125 mcg by mouth once daily. - loratadine (CLARITIN) 10 mg tablet Take 10 mg by mouth as needed. - ondansetron orally disintegrating (ZOFRAN ODT) 4 mg disintegrating tablet Take 4 mg by mouth as needed. Problem List As Of Date 07/05/2021 Noted Resolved Preoperative cardiovascular examination [Z01.81*04/05/2016 Class 3 severe obesity with serious comorbidity*03/17/2020 Type 2 diabetes mellitus without complication, *03/17/2020 Diabetes mellitus type 2 in obese (HCC) [E11.69*06/21/2021 Essential (primary) hypertension [I10] 06/21/2021 Morbid obesity (HCC) [E66.01] 06/21/2021 Encounter Status:Closed by ABRAHAM PACHECO on 07/06/[address] [facility] 06-21-2021 CNPN Telephone (GENBMI) -------- ASA THOMPSON ([id number]) 1970 Date Time Provider Department 06/21/21 ABRAHAM PACHECO GENBMI During your visit today, we recorded the following information about you: Abraham Pacheco RN 07/06/2021 10:39 AM Addendum BMI SPECIALTY CARE COORDINATION SURGERY PRE-OP EDUCATION NOTE AMBULATORY PATIENT EDUCATION NOTE TOPIC: SURVIVAL SKILLS: RYGB READINESS TO LEARN COGNITIVE ABILITY: Alert and oriented MOTIVATION TO LEARN: Eager FAMILY SUPPORT: High - Very involved in pt care INSTRUCTION PROVIDED TO: Patient PATIENT LEARNS BEST BY: Individual Instruction FACTORS AFFECTING LEARNING: None PHYSICAL LIMITATIONS AFFECTING LEARNING: None LEARNING RESPONSE DIAGNOSIS: Morbid Obesity METHOD OF INSTRUCTION: Individual instruction PATIENT / FAMILY RESPONSE: Verbalizes understanding of: INFECTION MANAGEMENT-Signs and symptoms of an infection and importance of contacting the physician PAIN MANAGEMENT-Effective strategies to manage pain in addition to pain medication POST-PROCEDURE INSTRUCTIONS-Correct actions to take to reduce post procedure complications PRE-PROCEDURE INSTRUCTIONS-Correct action to take to follow pre-procedure instructions FOLLOW-UP PLAN: Patient instructed to call with any further issues SUPPLEMENTAL MATERIAL: directed to [facility] website REFERRAL (RECOMMENDATION): None Surgery Pre-Op Education Note in Nurse Visit Education video modules viewed by the patient: Yes Postop prescriptions provided to the patient: Yes Postop Surgeon Visit scheduled: Yes On-Call AND Clinic Phone Number given to the Patient: Yes Pre surgery checklist reviewed: Yes Addendum: 07/06/21 Reviewed patient Instructions for the Liquid Diet: Patient was instructed by PCP to stop insulin when starting liquid diet on 06/30/21 and has not taken insulin since 06/30/21. Patient states she is unable to tolerate liquid diet. Can not go a whole day without extra calories. Blood sugar dropped to 48 on 07/01/21. Patient taking metformin and will contact PCP 07/06/21. Day Before Surgery - Liquid Diet Instruction Review: Advised patient I would reach out to Nutrition for recommendation and follow up. 1. Last Protein shake should be before 6 pm. 2. It is important that you stay hydrated - 64 ounces of fluid per day. 3. Drink a 28-32 ounce bottle of a sugar free sport drink (Gatorade, Powerade, etc.) the night prior to surgery. If the sport drinks aren?t tolerable, may substitute with no sugar added - no pulp juice - apple, cranberry, lemonade, white grape or orange. Day of Surgery Clear Liquid Diet Drink 12-20 ounces of a sugar free sport drink (or juice as above) stop liquids 2 hours before scheduled arrival time. Other Instructions Reviewed: Gave patient [phone] My Chart Support line phone number Skin Preparation: Dial antibacterial soap/Hibiclens bottle AND instructions, Radha, wound care, vitamin AND nutrients, activity restrictions post op, discharge instructions AND surgical guide, incentive spirometry;diet progression-marsha phase I AND II AND 2wk liquid diet prior to surgery, activity level AND pt responsibility during hospitalization. Sleep Apnea: n/a Even if you don't have the diagnosis of sleep apnea, the pain medicine you receive and your weight put you at risk for breathing complications and apnea after surgery. After your operation, RT will assess you in the recovery room and again on the gill. They will most likely ask you to wear a face mask that will deliver oxygen using some mild positive pressure. The machine will automatically adjust the amount of pressure you receive. Wearing the mask does not mean that you will need to go home with it or have the diagnosis of sleep apnea. It will only be used after surgery to maintain your oxygen levels. Do not take pain medication three hours before bedtime as it may cause breathing difficulty. If you are having pain at bedtime you may take two Extra Strength Tylenol. Abraahm Pacheco RN Allergies As of Date: 06/21/2021 Noted Allergy Reaction CIPROFLOXACIN 04/05/2016 4 - Hives HYDROMORPHONE 03/12/2020 4 - Hives MORPHINE 04/01/2016 16 - Unknown PENICILLINS 04/01/2016 16 - Unknown Date Reviewed: 06/21/2021 Reviewed by: Sterling Biggs MD - Fully Assessed Reason for Visit: Preparations For Surgery [898] Prescriptions as of 07/06/2021 - blood sugar diagnostic (TRUE METRIX GLUCOSE TEST STRIP) test strip Inject 1 Strip subcutaneously twice daily. - Insulin Syringe-Needle U-100 (BD INSULIN SYRINGE ULTRA-FINE) 1 mL 31 gauge x 5/16 Inject 1 Syringe subcutaneously twice daily. - colesevelam (WELCHOL) 625 mg tablet Take 1 tablet by mouth once daily. - hydroCHLOROthiazide (HYDRODIURIL, ESIDRIX) 25 mg tablet Take 1 tablet by mouth once daily. - metFORMIN (GLUCOPHAGE) 500 mg tablet Take 1 tablet by mouth twice daily. - (more content not included)... [facility] (GENBMI) -------- ASA THOMPSON ([id number]) 1970 F Date Time Provider Department 05/25/21 ABRAHAM PACHECO [facility] During your visit today, we recorded the following information about you: Abraham Pacheco RN 05/25/2021 4:23 PM Signed [facility] SPECIALTY CARE COORDINATION SURGERY APPROVAL CALL Received e-mail confirmation of insurance approval for bariatric surgery.Pre-operative call placed to the patient, this RN spoke with patient and agreed upon a surgery date of July 15 2021. Surgical episode request sent to [facility] surgery scheduling. -Patient instructed to start pre-op 800 calorie partial liquid diet high protein Slimfast (4.5) daily beginning 2 weeks prior to surgery. - Patient also advised to stop/avoid all NSAID'S, ASA, blood thinners, fish oil tablets and other herbal supplements and vitamins A-E including multi-vitamins beginning 7 days prior to surgery. - Medication List reviewed and patient will contact prescribing physician regarding cessation of diuretics aspirin, insulin while on pre-operative diet. -Patient denies use of estrogen products . -Patient tolerating C-PAP and advised to bring C-PAP mask and tubing DOS. N/A - Pt instructed to fax FMLA forms to medical staff credentialing coordinator and allow 7-10 days for completion. Radha video assigned and Pt will view Drop video during pre-op nurse visit. All questions and concerns addressed and pt verbalized understanding. -Patient case reviewed. All nutrition appointments completed, psychology clearance obtained, surgeon visit and procedure type verified, medical optimization obtained and all testing complete. Con ABO No ordered Creatinine level 1.03 Abraham Pacheco RN Allergies As of Date: 05/25/2021 Noted Allergy Reaction CIPROFLOXACIN 04/05/2016 4 - Hives HYDROMORPHONE 03/12/2020 4 - Hives MORPHINE 04/01/2016 16 - Unknown PENICILLINS 04/01/2016 16 - Unknown Date Reviewed: 03/31/2021 Reviewed by: Ghazal Doyle RD - Fully Assessed Reason for Visit: Schedule Surgery [1330] Prescriptions as of 05/25/2021 - blood sugar diagnostic (TRUE METRIX GLUCOSE TEST STRIP) test strip Inject 1 Strip subcutaneously twice daily. - Insulin Syringe-Needle U-100 (BD INSULIN SYRINGE ULTRA-FINE) 1 mL 31 gauge x 5/16 Inject 1 Syringe subcutaneously twice daily. - colesevelam (WELCHOL) 625 mg tablet Take 1 tablet by mouth once daily. - hydroCHLOROthiazide (HYDRODIURIL, ESIDRIX) 25 mg tablet Take 1 tablet by mouth once daily. - metFORMIN (GLUCOPHAGE) 500 mg tablet Take 1 tablet by mouth twice daily. - predniSONE (DELTASONE) 10 mg tablet Take 1 tablet by mouth once daily. - aspirin, enteric coated (ASPIRIN, ENTERIC COATED) 81 mg EC tablet Take 81 mg by mouth once daily. - atorvastatin (LIPITOR) 20 mg tablet Take 20 mg by mouth once daily. - HUMULIN 70/30 100 unit/mL (70-30) - levothyroxine (SYNTHROID) 125 mcg tablet Take 125 mcg by mouth once daily. - loratadine (CLARITIN) 10 mg tablet Take 10 mg by mouth as needed. - ondansetron orally disintegrating (ZOFRAN ODT) 4 mg disintegrating tablet Take 4 mg by mouth as needed. Problem List As Of Date 05/25/2021 Noted Resolved Preoperative cardiovascular examination [Z01.81*04/05/2016 Class 3 severe obesity with serious comorbidity*03/17/2020 Type 2 diabetes mellitus without complication, *03/17/2020 Encounter Status:Closed by ABRAHAM PACHECO on 05/25/[address] [facility] 04-26-2021 CNCO Letter Text Normal [facility] 04-21-2021 CNCO Letter Text Normal [facility] 04-12-2021 CNCO Letter Text Normal [facility] Vital Signs Date Time Vital Sign Value Performing Clinician Facility 12-27-2022 15:00-0500 Body height 160.02 cm Regisdante Ismaelericka Other [employer] Other 12-27-2022 15:00-0500 Body mass index (BMI) [Ratio] 44.63 kg/m2 [facility] [employer] Other [employer] Other 12-27-2022 15:00-0500 Body weight 114.31 kg Regisdante Ismaelericka Other [employer] Other 12-27-2022 15:00-0500 Diastolic blood pressure 61 mm[Hg] Aime Denaejenny Other [employer] Other 12-27-2022 15:00-0500 Respiratory rate 18 /min Reg[facility] [id number] Other [employer] Other 12-27-2022 15:00-0500 SaO2% (BldA) [Mass fraction] 97 % [facility] [id number] Other [employer] Other 12-27-2022 15:00-0500 Systolic blood pressure 127 mm[Hg] Aime Capone Other [facility] [employer] Other 07-26-2022 10:45-0400 Body temperature 98.2 [degF] Bishnu Horner MD Work Phone: [employer] 07-26-2022 10:45-0400 Diastolic blood pressure 65 mm[Hg] Bishnu Horner MD Work Phone: [employer] 07-26-2022 10:45-0400 Heart rate 84 /min Bishnu Horner MD Work Phone: [employer] 07-26-2022 10:45-0400 Respiratory rate 16 /min Bishnu Horner MD Work Phone: [employer] 07-26-2022 10:45-0400 SaO2% (BldA) [Mass fraction] 98 % Bishnu Horner MD Work Phone: [employer] 07-26-2022 10:45-0400 Systolic blood pressure 161 mm[Hg] Bishnu Horner MD Work Phone: [employer] 07-25-2022 18:02-0400 Body height 165.1 cm Bishnu Horner MD Work Phone: [employer] 07-25-2022 18:02-0400 Body mass index (BMI) [Ratio] 39.94 kg/m2 Bishnu Horner MD Work Phone: [employer] 07-25-2022 18:02-0400 Body weight 108.86 kg Bishnu Horner MD Work Phone: [employer] 07-22-2022 11:28-0400 Body temperature 98.2 [degF] Aime Bird MD [facility] [employer] 07-22-2022 11:28-0400 Diastolic blood pressure 72 mm[Hg] Aime Bird MD [facility] [employer] 07-22-2022 11:28-0400 Heart rate 92 /min Aime Bird MD [facility] 07-22-2022 11:28-0400 Respiratory rate 12 /min Aime Bird MD [facility] 07-22-2022 11:28-0400 SaO2% (BldA) [Mass fraction] 96 % Aime Bird MD [facility] 07-22-2022 11:28-0400 Systolic blood pressure 155 mm[Hg] Aime Bird MD [facility] 07-18-2022 20:54-0400 Body height 165.1 cm Aime Bird MD [facility] 07-18-2022 20:54-0400 Body mass index (BMI) [Ratio] 42.56 kg/m2 Aime Bird MD [facility] 07-18-2022 20:54-0400 Body weight 116 kg Aime Bird MD [facility] Encounters Encounter Date Encounter Type Care Provider Facility Start: 03-10-2023 End: 03-11-2023 ambulatory [facility] Facility:H1 Start: 01-03-2023 ambulatory [facility] Facility:H 1 Start: 12-28-2022 End: 12-29-2022 ambulatory [facility] Facility:H1 Start: 12-27-2022 End: 12-27-2022 ambulatory [facility] Other [employer] Other Start: 12-27-2022 Office outpatient ne w 30 minutes [facility] Start: 12-01-2022 End: 12-02-[address] GARRY RAMOS . Facility:H1 Start: 11-26-2022 End: 11-26-[address] GARRY RAMOS . Facility:H1 Start: 11-25-2022 End: 11-26-[address] GARRY RAMOS . Facility:H1 Start: 11-11-2022 ambulatory [facility] Start: 10-26-2022 End: 10-27-2022 Evaluation and management of inpatient [facility] Start: 10-20-2022 ambulatory [facility] Start: 10-13-2022 ambulatory [facility] Start: 10-13-2022 ambulatory [facility] Start: 09-27-2022 End: 09-28-2022 ambulatory [facility] Start: 09-27-2022 End: 09-27-2022 ambulatory [facility] Start: 09-23-[address] GARRY RAMOS . Facili ty:H1 Start: 09-22-2022 End: 09-23-2022 ambulatory [facility] Start: 09-12-2022 End: 09-12-[address] GARRY RAMOS . Facility: Start: 08-18-2022 ambulatory [facility] Start: 08-17-2022 End: 08-17-2022 ambulatory [facility] Start: 08-05-2022 End: 08-08-2022 ambulatory CHRISTI ROBSON [facility] Start: 07-25-2022 End: 07-26-2022 ambulatory GARRY Cantor [facility] Start: 07-25-2022 End: 07-26-2022 Emergency department patient visit Bishnu Horner MD Work Phone: [facility] 3C Observation Comment on above: Nephrostomy complica tion (HCC) (Primary Dx) Start: 07-18-2022 End: 07-22-2022 Evaluation and management of inpatient CHINO DEMPSEY [facility] Start: 07-18-2022 End: 07-22-2022 Evaluation and management of inpatient Aime Bird MD [facility] 5C Stepdown Comment on above: Kidney stone (Primar y Dx); Acute pyelonephritis; Left renal atrophy; Staghorn renal calculus; OMAR (acute kidney injury) (HCC) Start: 07-18-2022 End: 07-18-[address] GARRY RAMOS . Facility:H1 Start: 04-15-2022 End: 04-16-[address] GARRY ARMOS . Facility:H1 Start: 04-01-[address] GARRY RAMOS . Facili ty:H1 Start: 02-15-2019 End: 02-22-2019 ambulatory [facility] RAMOS [facility] Procedures Date Procedure Procedure Detail Performing Clinician Start: 07-26-2022 Glucose blood reagent strip Paloma Arceo MD Work Phone: Start: 07-26-2022 Remove int dwell ure teral stent transurethral Paloma Arceo MD Work Phone: Start: 07-26-2022 Prothrombin time Oscar Strpauloch DO Work Phone: Start: 07-25-2022 Radiologic exam abdo men 1 view Oscar Strbich DO Work Phone: Start: 07-22-2022 Glucose blood reagent strip Livia Cantrell MD Work Phone: Start: 07-22-2022 End: 07-22-2022 Assay of lactate Brooklynn Ferrari MD Work Phone: Start: 07-22-2022 BASIC METABOLIC PANE L W/ REFLEX TO MG FOR LOW K Livia Cantrell MD Work Phone: Start: 07-22-2022 Assay of lactate Preetr stefan Ferrari MD Work Phone: Start: 07-21-2022 Glucose blood reagent strip Livia Cantrell MD Work Phone: Start: 07-21-2022 Assay of lactate Preetr stefan Ferrari MD Work Phone: Start: 07-21-2022 Glucose blood reagent strip Livia Cantrell MD Work Phone: Start: 07-21-2022 BASIC METABOLIC PANE L W/ REFLEX TO MG FOR LOW K Brooklynn Ferrari MD Work Phone: Start: 07-21-2022 Assay of lactate Preetr stefan Ferrari MD Work Phone: Start: 07-21-2022 Glucose blood reagent strip Livia Cantrell MD Work Phone: Start: 07-21-2022 End: 07-21-2022 Assay of lactate Brooklynn Ferrari MD Work Phone: Start: 07-21-2022 BASIC METABOLIC PANE L W/ REFLEX TO MG FOR LOW K Brooklynn Ferrari MD Work Phone: Start: 07-21-2022 Assay of lactate Lakeetr stefan Ferrari MD Work Phone: Start: 07-20-2022 BASIC METABOLIC PANE L W/ REFLEX TO MG FOR LOW K Brooklynn Ferrari MD Work Phone: Start: 07-20-2022 Glucose blood reagent strip Livia Cantrell MD Work Phone: Start: 07-20-2022 Assay of lactate Preetr stefan Ferrari MD Work Phone: Start: 07-20-2022 Glucose blood reagent strip Livia Cantrell MD Work Phone: Start: 07-20-2022 End: 07-20-2022 CULTURE, BLOOD 1 Urban Noriega MD Work Phone: Start: 07-20-2022 Urnls dip stick/tabl et reagent auto microscopy Shahid Galindo MD Work Phone: Start: 07-20-2022 IMMUNOFIXATION SERUM PROFILE Shahid Galindo MD Work Phone: Start: 07-20-2022 End: 07-20-2022 Protein electrophoretic fractj&quantj serum Shahid Galindo MD Work Phone: Start: 07-20-2022 BASIC METABOLIC PANE L W/ REFLEX TO MG FOR LOW K Brooklynn Ferrari MD Work Phone: Start: 07-20-2022 Blood gases any comb ination ph pco2 po2 co2 hco3 Tye Walsh MD Work Phone: Start: 07-20-2022 End: 07-20-2022 Complement antigen each component Brooklynn Ferrari MD Work Phone: Start: 07-20-2022 IMMATURE PLATELET FRACTION Brooklynn Ferrari MD Work Phone: Start: 07-20-2022 End: 07-20-2022 Creatinine other source Brooklynn Ferrari MD Work Phone: Start: 07-20-2022 BASIC METABOLIC PANE L W/ REFLEX TO MG FOR LOW K Brooklynn Ferrari MD Work Phone: Start: 07-20-2022 Glucose blood reagent strip Livia Cantrell MD Work Phone: Start: 07-20-2022 Us retroperitoneal r eal time w/image limited Brooklynn Ferrari MD Work Phone: Start: 07-20-2022 Glucose blood reagent strip Livia Cantrell MD Work Phone: Start: 07-20-2022 Radiologic exam ches t single view Marisol Peres MD Work Phone: Start: 07-20-2022 Ecg routine ecg w/le ast 12 lds i&r only Marisol Peres MD Work Phone: Start: 07-20-2022 BASIC METABOLIC PANE L W/ REFLEX TO MG FOR LOW K Livia Cantrell MD Work Phone: Start: 07-20-2022 Blood count complete auto&auto difrntl wbc Livia Cantrell MD Work Phone: Start: 07-20-2022 Culture bacterial bl ood aerobic w/id isolates Livia Cantrell MD Work Phone: Start: 07-20-2022 CULTURE, BLOOD 1 Laci Cantrell MD Work Phone: Start: 07-20-2022 LACTATE, SEPSIS Manny Cantrell MD Work Phone: Start: 07-20-2022 End: 07-20-2022 Basic metabolic panel calcium total Marisol Peres MD Work Phone: Start: 07-19-2022 Glucose blood reagent strip Livia Cantrell MD Work Phone: Start: 07-19-2022 Glucose blood reagent strip Livia Cantrell MD Work Phone: Start: 07-19-2022 Plmt nephrostomy cat h prq new access rs&i Kash Clay MD Work Phone: Start: 07-19-2022 Glucose blood reagent strip Livia Cantrell MD Work Phone: Start: 07-19-2022 End: 07-19-2022 Prothrombin time Christi Chance DO Work Phone: Start: 07-19-2022 BASIC METABOLIC PANE L W/ REFLEX TO MG FOR LOW K Livia Cantrell MD Work Phone: Start: 07-19-2022 Blood count complete auto&auto difrntl wbc Livia Cantrell MD Work Phone: Start: 07-19-2022 Urnls dip stick/tabl et reagent auto microscopy Brooklynn Ferrari MD Work Phone: Start: 07-18-2022 Glucose blood reagent strip Livia Cantrell MD Work Phone: Start: 07-18-2022 End: 07-18-2022 Gluc bld gluc mntr dev cleared fda spec home use Brooklynn Ferrari MD Work Phone: Start: 07-18-2022 End: 07-18-2022 CULTURE, BLOOD 1 Brooklynn Ferrari MD Work Phone: Start: 07-18-2022 Prothrombin time Brooke Ennis MD Work Phone: Start: 07-18-2022 Culture bacterial quanttative colony count urine Brooklynn Ferrari MD Work Phone: Start: 07-18-2022 BASIC METABOLIC PANE L W/ REFLEX TO MG FOR LOW K Brooke Ennis MD Work Phone: Start: 07-18-2022 Blood count complete auto&auto difrntl wbc Brooke Ennis MD Work Phone: Plan of Treatment Date Care Activity Detail Author Start: 08-23-2022 End: 08-23-2022 Patient encounter procedure 08/23/2022 Office Visit Infectious Diseases Urban Noriega MD [address] [place] [address] [facility]. Start: 08-03-2022 End: 07-20-2023 NM KIDNEY W FLOW AND FUNCTION W PHARMACOLOGICAL INTERVENTION NM KIDNEY W FLOW AND FUNCTION W PHARMACOLOGICAL INTERVENTION Imaging Routine Left renal atrophy Staghorn renal calculus Expected: 08/03/2022, Expires: 07/20/2023 [employer] Work Phone: Comment on above: Expected: 08/03/2022 , Expires: 07/20/2023 Start: 07-29-2022 End: 07-22-2023 Basic metabolic 2000 panel - Serum or Plasma Basic Metabolic Panel Lab Routine OMAR (acute kidney injury) (HCC) Expected: 07/29/2022, Expires: 07/22/2023 [employer] Work Phone: Comment on above: Expected: 07/29/2022 , Expires: 07/22/2023 Start: 07-07-2022 Influenza vaccination Flu vaccine (# 1) [employer] Start: 2021 Screening for malign ant neoplasm of breast Breast cancer screen [employer] Start: 2021 Shingles vaccine (1 of 2) Shingles vaccine (1 of 2) [employer] Start: 2016 Screening for malign ant neoplasm of colon [employer] Start: 2001 Screening for malign ant neoplasm of cervix [employer] Start: 1992 Screening for malign ant neoplasm of cervix Pap smear [facility] Start: 1990 DTaP/Tdap/Td vaccine (1 - Tdap) DTaP/Tdap/Td vaccine (1 - Tdap) [facility] Start: 1990 Hepatitis B vaccine (1 of 3 - Risk 3-dose series) Hepatitis B vaccine (1 of 3 - Risk 3-dose series) [facility] [employer] Start: 1989 Diabetic retinal exam Diabetic retin al exam [facility] Start: 1989 Urine screening for protein Diabetic microalbuminuria test [facility] [employer] Start: 1986 HIV screening HIV screen [facility] [employer] Start: 1983 Depression Monitoring Depression Mon itoring [facility] [employer] Start: 1981 Diabetic foot examination Diabetic foot exam [facility] [employer] Start: 1981 Hemoglobin A1c measurement A1C test (Diabetic or Prediabetic) [facility] [employer] Start: 1981 Lipid panel Lipids [facility] [employer] Start: 1977 Pneumococcal 0-64 ye ars Vaccine (1 - PCV) Pneumococcal 0-64 years Vaccine (1 - PCV) [facility] [employer] Start: 03-26-1972 COVID-19 Vaccine (#1) COVID-19 Vacci ne (#1) [facility] [employer] End: 08-01-2022 Basic Metabolic Panel w/ Reflex to MG Basic Metabolic Panel w/ Reflex to MG Lab Routine Daily for 14 Occurrences starting 07/19/2022 until 08/01/2022, 3 completed [employer] Phone: Comment on above: Daily for 14 Occurre nces starting 07/19/2022 until 08/01/2022, 3 completed Culture, Blood 1 [employer] Phone: Culture, Blood 1 Culture, Blood 1 Microbiology STAT 07/20/2022 4:26 AM EDT [employer] Work Phone: Culture, Blood 1 [employer] Phone: Culture, Blood 2 Culture, Blood 2 Microbiology STAT 07/20/2022 4:26 AM EDT [employer] Phone: Glucose [Mass/volume ] in Serum or Plasma [employer] Phone: Comment on above: 4X Daily (AC & HS) u ntil discontinued starting 07/18/2022, 1 completed As Needed until disc ontinued starting 07/18/2022 Glucose [Mass/volume ] in Serum or Plasma POCT Glucose Point of Care Testing STAT As Needed until discontinued starting 07/26/2022 [employer] Phone: Comment on above: As Needed until disc ontinued starting 07/26/2022 Oxygen therapy [Mini mum Data Set] Initiate Oxygen Therapy Protocol Respiratory Care Routine As Needed until discontinued starting 07/18/2022 [employer] Phone: Comment on above: As Needed until disc ontinued starting 07/18/2022 Oxygen therapy [Mini mum Data Set] Initiate Oxygen Therapy Protocol Respiratory Care Routine Daily until discontinued starting 07/25/2022 [employer] Phone: Comment on above: Daily until disconti nued starting 07/25/2022 Immunizations Immunization Date Immunization Notes Care Provider Rick mcginnis 08-19-2016 tetanus toxoid, reduced diphtheria toxoid, and acellular pertussis vaccine, adsorbed Aziz Bakhous Other [employer] Other Payers Date Payer Category Payer Unknown [id number] 2.16.8 [id number] 1971 Unknown [id number] 2.16.8 [id number] 1971 Unknown [id number] 2.16. [id number] 1971 Unknown [id number] 2.16. [id number] 1971 Unknown [id number] 2.16.84 [id number] 1971 Unknown [id number] 2.16.84 [id number] 1971 Unknown [id number] 2.16.84 [id number] 1971 Unknown [id number] 2.16.84 [id number] 1971 Unknown [id number] 2.16.84 [id number] 1971 Unknown [id number] 2.16.84 [id number] 1971 Unknown [id number] 2.16.84 [id number] 1971 Unknown [id number] 2.16.84 [id number] 1971 Unknown [id number] 2.16.84 [id number] 1971 Unknown [id number] 2.16.84 [id number] 1971 Unknown [id number] 2.16.84 [id number] 1959 Self-pay [id number] 1959 Unknown [id number] 1959 Unknown [id number] Self-pay Self Pay [id number] Unknown [id number] . [id number] Social History Date Type Detail Facility Tobacco smoking status [facility] Unknown if ever smoked [facility] Start: 1970 Sex Assigned At Female F [facility] Tobacco smoking status [facility] Tobacco smoking consumption unknown [employer] Phone: Start: 1970 Sex Assigned At Not on file [employer] Phone: Start: 07-08-2022 End: 07-25-2022 Exposure to SARS-CoV-2 (event) Not sure [facility] [employer] Sex Assigned At Sex Assigned At [facility] [employer] Other Goals Date Patient Goal Desired Activity /State Clinical Notes 03-31-2021 to 12-27-2022 Note Date & Type Note Facility 12-27-2022 Evaluation note Encounter Date Diagnosis Assessment Notes Dec, Chronic kidney disease, stage IV (severe) (ICD-10 - N18.4) Patient has CKD from obstructive nephropathy in addition to diabetic and hypertensive nephropathy. Patient is now status post left nephrectomy. Last creatinine from last month 2.1 mg deciliter and GFR 24 mL/min I will check renal function panel today. Okay to continue losartan for now. Keep hemoglobin A1c below 7% to preserve kidney function. Keep blood pressure below 130/80. I will follow-up with the patient in 3 months. Lab as above along with renal ultrasound prior to next visit Dec, Anemia, unspecified type (ICD-10 - D64.9) Last hemoglobin 10.1 g/dL. Could be from advanced CKD. I will check iron storage along with folate and vitamin B12. No need for TIFFANIE. Dec, Nephrolithiasis (ICD-10 - N20.0) Patient has history of nephrolithiasis for many years. He is now status post left nephrectomy due to large obstructive left ureteral stone which was complicated with UTI and pyonephritis. [facility] Dec, Solitary kidney, acquired (ICD-10 - Z90.5) Patient is status post left nephrectomy in October 2022 due to large obstructive left ureter with UTI. As per the patient,tThe left kidney was functioning only 13% Dec, Type 2 diabetes mellitus with other specified complication (ICD-10 - E11.69) Patient has long history of diabetes for [address] Ramos for diabetes management. I will check GFR today. If GFR remains below [address] Ramos to stop metformin. Keep hemoglobin A1c below 7% to preserve kidney function Dec, Obesity, unspecified (ICD-10 - E66.9) Advised weight loss Dec, Hypertensive nephropathy (ICD-10 - I12.9) Blood pressure seems well controlled. I am okay to continue losartan for now. Asked patient to monitor her blood pressure at home and to follow a low-salt diet [employer] Other 01-06-2023 Note Attestation signed by Castillo Almeida MD at 11/12/2022 3:15 PM I saw and evaluated the patient, participating in the trevizo portions of the service. I reviewed the resident???s note. I agree with the resident???s findings and plan. Castillo Almeida MD Dr. Alexandru Rojas, Dr. Bishnu Burnett, Dr. Kris Patel, Dr. Barron Almeida, Dr. Brandon Morales , Dr. Sterling Ku, Luther Tesfaye MD FOLLOW UP UROLOGY VISIT HPI 52 yo F with hx of atrophic L kidney due to stone burden and recurrent infections s/p Robot assisted laparoscopic radical nephrectomy-left side 10/26/22. Pt had slight inc in Cr 1.5 from 1.3 likely acutely postop but otherwise had a uncomplicated postop course and was dced POD1. Today without any concerns. Ambulating ramon diet,having Bms. Improving pain. 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 - Marked fat necrosis of renal sinus - Simple cyst, 0.1 cm - Renal pelvis stones, 3.0 cm and 1.5 cm (gross examination only) - Ureteral stent (gross examination only) Past Medical History: Diagnosis Date Atrophy of left kidney CVA (cerebral vascular accident) [facility] 2021 hisotry of blood clot 5 yrs ago Diabetes mellitus (CMS/HCC) Kidney stone Past Surgical History: Procedure Laterality Date CYSTOSCOPY W/ URETERAL STENT PLACEMENT Left 07/26/2022 HYSTERECTOMY OTHER SURGICAL HISTORY 10/20/2022 nephrostomy tube insertiion Social History Socioeconomic History Marital status: Spouse name: Not on file Number of children: Not on file Years of education: Not on file Highest education level: Not on file Occupational History Not on file Tobacco Use Smoking status: Never Smokeless tobacco: Never Substance and Sexual Activity Alcohol use: Not Currently Drug use: Not Currently Sexual activity: Not on file Other Topics Concern Not on file Social History Narrative Not on file Social Determinants of Health Financial Resource Strain: Not on file Food Insecurity: Not on file Transportation Needs: Not on file Physical Activity: Not on file Stress: Not on file Social Connections: Not on file Intimate Partner Violence: Not on file Housing Stability: Not on file Current Outpatient Medications on File Prior to Visit Medication Sig Dispense Refill aspirin 81 mg EC tablet Take 81 mg by mouth in the morning. atorvastatin (Lipitor) 20 mg tablet atorvastatin 20 mg tablet docusate sodium (Colace) 100 mg capsule Take 1 capsule (100 mg) by mouth in the morning and at bedtime for 15 days. 30 capsule 0 docusate sodium (Colace) 100 mg capsule Take 1 capsule (100 mg) by mouth in the morning and at bedtime for 15 days. 30 capsule 0 DULoxetine (Cymbalta) [address] capsule Take 60 mg by mouth in the morning. Do not crush or chew. furosemide (Lasix) 20 mg tablet Take by mouth. gabapentin (Neurontin) 600 mg tablet Take 600 mg by mouth in the morning, at noon, and at bedtime. hydrALAZINE (Apresoline) 25 mg tablet Take by mouth. hydroCHLOROthiazide (HYDRODiuril) 25 mg tablet Take 25 mg by mouth in the morning. insulin NPH and regular human (HumuLIN 70/30 U-100 Insulin) 100 unit/mL (70-30) injection 70 units in AM 30 units pm as needed levothyroxine (Synthroid, Levoxyl) 175 mcg tablet levothyroxine 175 mcg tablet losartan (Cozaar) 100 mg tablet Take 100 mg by mouth in the morning. magnesium oxide (Mag-Ox) 200 mg split tablet Take 400 mg by mouth. metFORMIN (Glucophage) 500 mg tablet metformin 500 mg tablet oxybutynin XL (Ditropan-XL) 10 mg 24 hr tablet Take 1 tablet (10 mg) by mouth in the morning. Do not crush, chew, or split. 30 tablet 1 No current facility-administered medications on file prior to visit. PHYSICAL EXAM Cardiovascular: Rate and Rhythm: Normal rate. Pulmonary: Effort: Pulmonary effort is normal. Abdominal: General: Abdomen is flat. Palpations: Abdomen is soft. Comments: Incisions CDI Skin: General: Skin is warm. Neurological: Mental Status: She is alert and oriented to person, place, and time. PLAN 52 F hx of atophic L kidney due to stone burden and recurrent infections s/p Robot assisted laparoscopic radical nephrectomy-left side 10/26/22 FU earlier if postop pain, incisional bleeding or pain Or if recurrent UTI sxs Otherwise FU in 3 mo with BELÉN with [facility] Referral to nephrology as well Kash Clay MD [id number] [facility] Attestation signed by Castillo Almeida MD at 11/04/2022 2:09 PM I saw and evaluated the patient, participating in the trevizo portions of the service. I reviewed the resident???s note. I agree with the resident???s findings and plan. Castillo Almeida MD Dr. Alexandru Rojas, Dr. Bishnu Burnett, Dr. Kris Patel, Dr. Barron Almeida, Dr. Brandon Morales , Dr. Sterling Ku, Luther Tesfaye MD Subjective AF HDS Had not been OOB yet Passing gas no Bms Minimal pain tolerating med Ramon CLD Objective Patient Vitals for the past 24 hrs: BP Temp Temp src Pulse Resp SpO2 10/27/22809 -- -- -- 86 (!) 8 93 % 10/27/22 08 121/64 -- -- 84 10 93 % 10/27/22 0750 -- -- -- 88 12 93 % 10/27/22 0740 -- -- -- 88 14 94 % 10/27/22 0730 -- -- -- 87 12 93 % 10/27/22 0720 -- -- -- 89 12 93 % 10/27/22 0710 -- -- -- 91 13 91 % 10/27/22699 119/55 -- -- 88 19 95 % 10/27/22 0650 -- -- -- 93 14 94 % 10/27/22 0640 -- -- -- 89 15 94 % 10/27/22 0630 -- -- -- 89 (!) 9 94 % 10/27/22 0620 -- -- -- 86 12 94 % 10/27/22 0610 -- -- -- 88 (!) 9 94 % 10/27/22 0600 108/57 -- -- 91 15 95 % 10/27/22 0550 -- -- -- 88 10 92 % 10/27/22 0540 -- -- -- 89 11 92 % 10/27/22 0530 -- -- -- 92 12 93 % 10/27/22 0520 -- -- -- 92 23 93 % 10/27/22 0510 -- -- -- 90 11 93 % 10/27/22 0500 105/58 -- -- 88 13 93 % 10/27/22 0450 -- -- -- 87 11 93 % 10/27/22 0440 -- -- -- 92 13 93 % 10/27/22 0430 -- -- -- 91 16 94 % 10/27/22 0420 -- -- -- 91 14 93 % 10/27/22 0410 -- -- -- 94 15 93 % 10/27/22 0400 102/54 -- -- 92 14 94 % 10/27/22 0350 -- -- -- 89 12 92 % 10/27/22 0340 -- -- -- 95 12 91 % 10/27/22 0330 -- -- -- 92 11 94 % 10/27/22 0320 -- -- -- 97 13 93 % 10/27/22 0310 -- -- -- 95 11 92 % 10/27/22 0300 115/58 -- -- 96 11 92 % 10/27/22 0250 -- -- -- 94 11 92 % 10/27/22 0240 -- -- -- 95 10 93 % 10/27/22 0230 -- -- -- 96 11 92 % 10/27/22 0220 -- -- -- 96 11 92 % 10/27/22 0210 -- -- -- 98 13 92 % 10/27/22 0200 117/60 -- -- 102 13 93 % 10/27/22 0150 -- -- -- 101 13 92 % 10/27/22 0140 -- -- -- 103 14 92 % 10/27/22 0130 -- -- -- 105 (!) 30 91 % 10/27/22 0120 -- -- -- 102 13 92 % 10/27/22 0110 -- -- -- 106 19 93 % 10/27/22 0100 135/63 -- -- 100 13 92 % 10/27/22 0050 -- -- -- 104 18 92 % 10/27/22 0040 -- -- -- 104 17 94 % 10/27/22 0030 -- -- -- 107 16 93 % 10/27/22 0020 -- -- -- 105 26 96 % 10/27/22 0010 -- -- -- 103 14 96 % 10/27/22 0000 137/67 -- -- 103 15 96 % 10/26/22 2300 144/73 -- -- 107 18 95 % 10/26/22 2200 158/67 -- -- 107 16 95 % 10/26/22 2100 153/75 -- -- 108 20 92 % 10/26/221999 153/66 -- -- 107 15 94 % 10/26/22 1920 151/68 37.5 ???C (99.5 ???F) Oral 106 20 90 % 10/26/22 1751 145/82 -- -- 103 14 92 % 10/26/22 1651 154/68 -- -- 100 14 91 % 10/26/22 1621 151/69 -- -- 95 15 94 % 10/26/22 1552 -- -- -- 91 19 97 % 10/26/22 1551 153/77 -- -- 90 18 97 % 10/26/22 1521 137/70 -- -- 86 15 -- 10/26/22 1506 -- -- -- 91 25 (!) 89 % 10/26/22 1451 140/65 -- -- 88 26 92 % 10/26/22 1436 131/72 -- -- 88 17 (!) 89 % 10/26/22 1421 121/87 -- -- 101 15 96 % Physical Exam Eyes: Pupils: Pupils are equal, round, and reactive to light. Cardiovascular: Rate and Rhythm: Normal rate. Pulmonary: Effort: Pulmonary effort is normal. Abdominal: General: Abdomen is flat. Palpations: Abdomen is soft. Comments: Incisions CDI Skin: General: Skin is warm. Neurological: Mental Status: She is alert and oriented to person, place, and time. Lab Results Component Value Date NA 134 (L) 10/27/2022 K 5.1 10/27/2022 CL 100 10/27/2022 ANIONGAP 13 10/27/2022 BUN 25 10/27/2022 CREATININE 1.56 (H) 10/27/2022 CALCIUM 8.3 (L) 10/27/2022 MG 1.1 (L) 10/27/2022 PHOS 3.4 10/27/2022 No results found for: BILITOT, BILIDIR, ALKPHOS, AST, ALT, PROT, ALBUMIN Lab Results Component Value Date WBC 11.07 (H) 10/27/2022 RBC 3.42 (L) 10/27/2022 HGB 9.6 (L) 10/27/2022 HCT 28.8 (L) 10/27/2022 MCV 84.2 10/27/2022 MCH 28.1 10/27/2022 MCHC 33.3 10/27/2022 RDW 13.2 10/27/2022 NEUTOPHILPCT 65.8 09/27/2022 LYMPHOPCT 24.0 09/27/2022 MONOPCT 6.5 09/27/2022 EOSPCT 2.9 09/27/2022 BASOPCT 0.4 09/27/2022 NEUTROABS 4.48 09/27/2022 LYMPHSABS 1.64 09/27/2022 MONOSABS 0.44 09/27/2022 EOSABS 0.20 09/27/2022 BASOSABS 0.03 09/27/2022 PLT 283 10/27/2022 NRBC 0.0 09/27/2022 No results found for this or any previous visit from the past 1 day. Assessment/Plan Principal Problem: Atrophic kidney Active Problems: Nonfunctioning kidney HTN (hypertension) CVA (cerebral vascular accident) (CMS/HCC) POD1 Robot assisted laparoscopic radical nephrectomy-left side FLD Voiding after cabrales removal ystdy IS encourage Ambulation PRN bowel and pain regimen OK for dc today Will fu Cr in office likely post op acute after nephrectomy Good UOP Ab (more content not included)...[facility]12-21-2022 NotePatient: Asa L Bucklew Vitals Value Taken Time BP 145/82 10/26/22 1756 Temp 36.1 10/26/22 1954 Pulse 105 10/26/22 1815 Resp 16 10/26/22 1815 SpO2 93 % 10/26/22 181 Vitals shown include unvalidated device data. Post-Anesthesia Patient Progress Note Patient location during evaluation: floor Patient Visit: Yes Chart Reviewed: Yes Patient participation: complete - patient participated Mental Status: Baseline mental status Cardiovascular status: acceptable Respiratory status: acceptable Airway patency: patent Pain management: adequate Post-operative Nausea and Vomiting: No Temperature within normal limits: Yes Hydration status: acceptable Apparent anesthesia complications: Patient has no apparent anesthesia complicationsUnUniversity Hospitals St. [facility]12-21-2022 NotePatient: Asa L Bucklew Procedure Summary Date: 10/26/22 [facility] Operating Room Anesthesia Start: 0839 Anesthesia Stop: 1422 Procedure: NEPHRECTOMY, ROBOT-ASSISTED (Left) Diagnosis: Atrophic kidney (Atrophic kidney [N26.1]) Surgeons: Castillo Almeida MD Responsible Provider: Juan Luis Kaba MD Anesthesia Type: Not recorded ASA Status: Not recorded Anesthesia Type: No value filed. Vitals Value Taken Time BP 145/82 10/26/226 Temp 36.7 10/26/221758 Pulse 103 10/26/22 175 Resp 17 10/26/22 175 SpO2 93 % 10/26/221758 Vitals shown include unvalidated device data. Anesthesia Post Evaluation Patient location during evaluation: PACU Patient participation: complete - patient participated Level of consciousness: awake Pain management: satisfactory to patient (Difficult to get comfortable. Pt alergic to Morphine and Dilaudid. Pt receiving Fentanyl and Percocet. ) Multimodal analgesia pain management approach (Surgeon placed local anesthetic at probe insertion sites.) Airway patency: patent Cardiovascular status: acceptable Respiratory status: acceptable and nasal cannula Hydration status: acceptable Comments: Answers questions appropriately No notable events documented.[facility]12-21-2022 Note Patient: Asa Thompson Procedure Information Anesthesia Start Date/Time: 10/26/22 0839 Procedure: NEPHRECTOMY, ROBOT-ASSISTED (Left) [facility] Operating Room Surgeons: Castillo Almeida MD Relevant Problems Anesthesia (-) History of anesthesia complications Cardio (+) HTN (hypertension) /Renal (+) Atrophic kidney (+) Hydronephrosis due to obstruction of ureter (+) Nonfunctioning kidney (+) Staghorn calculus Neuro/Psych (+) CVA (cerebral vascular accident) ([facility] Clinical information reviewed: Tobacco Allergies Meds Med Hx Surg Hx OB Status Fam Hx Physical Exam Airway Mallampati: III TM distance: >3 FB Neck ROM: full Cardiovascular Rhythm: regular Rate: normal Dental Pulmonary Breath sounds clear to auscultation Abdominal Anesthesia Plan ASA 2 general and regional (Discussed risks of peripheral nerve block with the patient, specifically including possible bleeding, infection, temporary or permanent neve damage. Patient understands these risks and is willing to proceed with the nerve block. ) intravenous induction Anesthetic plan and risks discussed with patient. Use of blood products discussed with patient who consented to blood products. Plan discussed with CAA. Additional Equipment RequestsUnUniversity Hospitals St. [facility]12-21-2022 Note Peripheral Block Patient location during procedure: OR Start time: 10/26/2022 2:00 PM End time: 10/26/2022 2:06 PM Reason for block: at surgeon's request and post-op pain management Staffing Performed: resident/MANAGER PERFORMANCE/MICHELLE Anesthesiologist: Juan Luis Kaba MD Resident/MANAGER PERFORMANCE: Binu Calles MD Preanesthetic Checklist Completed: patient identified, IV checked, site marked, risks and benefits discussed, surgical consent, monitors and equipment checked, pre-op evaluation and timeout performed Peripheral Block Patient position: supine Prep: ChloraPrep Patient monitoring: gambling monitor and continuous pulse ox Block type: other (see comment) (TAP) Laterality: right Injection technique: single-shot Guidance: ultrasound guided Needle Needle type: Tuohy Needle gauge: 21 G Needle length: 4 in Needle localization: ultrasound guidance Test dose: negative Medications Administered Ropivacaine (PF) (Naropin) 5 mg/mL (0.5 %) injection, 20 mL Assessment Injection assessment: negative aspiration for heme, local visualized surrounding nerve on ultrasound and incremental injection Paresthesia pain: none Heart rate change: no Slow fractionated injection: [facility]12-21-2022 NotePeripheral Block Patient location during procedure: post-op Start time: 10/26/2022 1:52 PM End time: 10/26/2022 2:00 PM Reason for block: at surgeon's request and post-op pain management Staffing Performed: resident/MANAGER PERFORMANCE/MICHELLE Anesthesiologist: Juan Luis Kaba MD Resident/MANAGER PERFORMANCE: Binu Calles MD Preanesthetic Checklist Completed: patient identified, IV checked, site marked, risks and benefits discussed, surgical consent, monitors and equipment checked, pre-op evaluation and timeout performed Peripheral Block Patient position: supine Prep: ChloraPrep Patient monitoring: heart rate, continuous pulse ox and gambling monitor Block type: other (see comment) (TAP) Laterality: left Injection technique: single-shot Guidance: ultrasound guided Needle Needle type: Tuohy Needle gauge: 21 G Needle length: 4 in Needle localization: ultrasound guidance Medications Administered Ropivacaine (PF) (Naropin) 5 mg/mL (0.5 %) injection, 20 mL Assessment Injection assessment: negative aspiration for heme, local visualized surrounding nerve on ultrasound and incremental injection Paresthesia pain: none Heart rate change: no Slow fractionated injection: [facility]12-21-2022 NoteAirway Date/Time: 10/26/2022 8:48 AM Urgency: elective Airway not difficult General Information and Staff Patient location during procedure: OR Anesthesiologist: Juan Luis Kaba MD Resident/MANAGER PERFORMANCE/MICHELLE: MICHELLE Gomes Performed: other anesthesia staff Learner assisted: medical student Indications and Patient Condition Indications for airway management: anesthesia Spontaneous Ventilation: absent Sedation level: deep Preoxygenated: yes Mask difficulty assessment: 1 - vent by mask Final Airway Details Final airway type: endotracheal airway Successful airway: ETT Cuffed: yes Successful intubation technique: video laryngoscopy Endotracheal tube insertion site: oral Blade: Hogan Blade size: #3 ETT size (mm): 7.5 Cormack-Lehane Classification: grade I - full view of glottis Placement verified by: chest auscultation and capnometry Measured from: lips ETT to lips (cm): 20 Number of attempts at approach: 1 Number of other approaches attempted: 0UnUniversity [facility]als St[facility] 10-26-2022 NoteArterial Line: Date/Time: 10/26/2022 8:25 AM An arterial line was placed Procedure performed using ultrasound guidance and surface landmarks.in the pre-op for the following indication(s): continuous blood pressure monitoring and blood sampling needed. A 20 gauge (size), 1 and 3/4 inch (length), Arrow (type) catheter was placed, Seldinger technique used , into the Right radial artery, secured by Tegaderm and Biodisc/Biopatch (and biodesc). Events: patient tolerated procedure well with no complications. Medications Administered Lidocaine (XYLOCAINE) 1 % SubQ, 1 mL midazolam (VERSED) IV, 2 mg Staffing Performed: resident/KATIA/MICHELLE Anesthesiologist: Juan Luis Kaba MD Resident/MANAGER PERFORMANCE: Aleah Cantrell MDUnUniversity Hospitals St. [facility] 10-13-2022 NoteSubjective: Chief complaint: This patient is seen for stent removal Patient ID: Asa Thompson is a 52 y.o. female History of Present Illness Ms. Thompson is a pleasant 52-year-old female being seen today for preoperative appointment. Her EMR has been reviewed. She is established with Dr. Castillo Almeida. Patient has an atrophic left kidney with a significant stone burden. She currently has a nephroureteral stent in place which was placed on 07/26/2022. Nephrectomy is scheduled for 10/26/22. Dr Almeida needs nephroureteral stent removed prior to procedure to decrease inflammation. Patient was recently treated for urine culture positive for javi glabrata. Will recheck urine. Clearance from PCP and neurology has not been received, will have appointment scheduler re-request. Patient denies fever, chills, nausea, vomiting, abd pain, flank pain, constipation, dysuria, and hematuria. Prior Labs/Imaging: CT ABDOMEN PELVIS WO IV CONTRAST 09/22/2022 3:44 PM CLINICAL INDICATIONS: Staghorn renal calculus. TECHNIQUE: Multidetector CT axial slices of the abdomen and pelvis were obtained without IV contrast. All CT scans at this facility use dose modulation, iterative reconstruction, and/or weight based dosing when appropriate to reduce radiation dose to as low as reasonably achievable COMPARISON: None. FINDINGS: Moderate multivessel coronary artery calcification. Heart appears nonenlarged. Single 4 mm nodule right anterior lung base, which requires no dedicated follow-up. The liver, gallbladder, spleen, pancreas, and adrenal glands appear unremarkable. Right kidney and ureter appear unremarkable. Left kidney contains percutaneous nephrostomy ureteral drain which traverses the left ureter and terminates within the urinary bladder. There are multiple large left-sided renal calculi measuring approximately 1.5 cm. No hydronephrosis bilaterally. The uterus is surgically absent. Small and large bowel loops appear unremarkable. Appendix is not definitively visualized. Nonaneurysmal abdominal aorta with moderate atherosclerotic involvement. No abdominopelvic lymphadenopathy. Lucency within L1 vertebral body likely represents simple cyst. Lower lumbar facet joint disease. Lower thoracic bony spurring suggesting mild spondylosis IMPRESSION: Multiple large left-sided renal calculi with left-sided percutaneous nephrostomy/ureteral drainage catheter in place. Historical: 09/27/22 Ms. Thompson is a pleasant 52-year-old female being seen today for preoperative appointment. Her EMR has been reviewed. She is established with Dr. Castillo Almeida. Patient has an atrophic left kidney with a significant stone burden. She currently has a nephroureteral stent in place which was placed on 07/26/2022. Patient reports that her nephroureteral stent is draining well and she is tolerating it well. She is complaining of significant bladder pain and urinary frequency. She is not currently on anticholinergic. She reports that her primary care put her on a course of ciprofloxacin which will end next week. She had not noted much benefit on the ciprofloxacin. No recent lab work available per EMR. Patient had a MAG3 renogram on 08/05/2022 which showed slight difference control function at 14% in the left kidney and 86% right kidney. Patient had a CT abdomen pelvis without IV contrast on 09/22/2022 which was independently reviewed and shows multiple large left-sided renal stones measuring up to 1.5 cm with correct placement of the left nephroureteral stent, and left renal atrophy. Her right side is unremarkable. History of blood clot >5 years ago. Stroke earlier this year. Her neurologist is Susanne Cuevas. PCP is Garry Ramos. On baby aspirin only. Patient reports that she does not see cardiology or pulmonology. Patient denies fever, chills, nausea, vomiting, abd pain, flank pain, constipation, dysuria, and hematuria. 08/18/22 Asa Thompson is a 51 y.o. female who presents for Urolithiasis (Patient reports she has no new symptoms wants stone removed.). Patient has been evaluated for nonfunctioning kidney has a staghorn stone on the left side. She has a nephrostomy tube in place which was placed due to sepsis. She is here for evaluation. She had a renal scan which shows 14% function. An 86% function in the right kidney. Patient is also diabetic. She denies any fevers chills nausea vomiting. Denies any hematuria. Has been voiding very well. 08/17/22 Location: Left kidney Duration: Was diagnosed a few weeks ago Context/Modifying Factors: Was admitted to [facility] with urosepsis Associated signs and symptoms: Currently denies fevers or chills but does have associated left flank pain from the nephroureteral catheter The patient is a 51-year-old female with diabetes who was recently admitted to [facility] with urosepsis. A CT scan and renal ultrasound demonstrated a left staghorn renal calculus. The repo (more content not included)...[facility]11-22-2022 NoteSubjective: Chief complaint: This patient is seen today for pre-op Patient ID: Asa Thompson is a 52 y.o. female History of Present Illness Ms. Thompson is a pleasant 52-year-old female being seen today for preoperative appointment. Her EMR has been reviewed. She is established with Dr. Castillo Almeida. Patient has an atrophic left kidney with a significant stone burden. She currently has a nephroureteral stent in place which was placed on 07/26/2022. Patient reports that her nephroureteral stent is draining well and she is tolerating it well. She is complaining of significant bladder pain and urinary frequency. She is not currently on anticholinergic. She reports that her primary care put her on a course of ciprofloxacin which will end next week. She had not noted much benefit on the ciprofloxacin. No recent lab work available per EMR. Patient had a MAG3 renogram on 08/05/2022 which showed slight difference control function at 14% in the left kidney and 86% right kidney. Patient had a CT abdomen pelvis without IV contrast on 09/22/2022 which was independently reviewed and shows multiple large left-sided renal stones measuring up to 1.5 cm with correct placement of the left nephroureteral stent, and left renal atrophy. Her right side is unremarkable. History of blood clot >5 years ago. Stroke earlier this year. Her neurologist is Susanne Cuevas. PCP is Garry Ramos. On baby aspirin only. Patient reports that she does not see cardiology or pulmonology. Patient denies fever, chills, nausea, vomiting, abd pain, flank pain, constipation, dysuria, and hematuria. Prior Labs/Imaging: CT ABDOMEN PELVIS WO IV CONTRAST 09/22/2022 3:44 PM CLINICAL INDICATIONS: Staghorn renal calculus. TECHNIQUE: Multidetector CT axial slices of the abdomen and pelvis were obtained without IV contrast. All CT scans at this facility use dose modulation, iterative reconstruction, and/or weight based dosing when appropriate to reduce radiation dose to as low as reasonably achievable COMPARISON: None. FINDINGS: Moderate multivessel coronary artery calcification. Heart appears nonenlarged. Single 4 mm nodule right anterior lung base, which requires no dedicated follow-up. The liver, gallbladder, spleen, pancreas, and adrenal glands appear unremarkable. Right kidney and ureter appear unremarkable. Left kidney contains percutaneous nephrostomy ureteral drain which traverses the left ureter and terminates within the urinary bladder. There are multiple large left-sided renal calculi measuring approximately 1.5 cm. No hydronephrosis bilaterally. The uterus is surgically absent. Small and large bowel loops appear unremarkable. Appendix is not definitively visualized. Nonaneurysmal abdominal aorta with moderate atherosclerotic involvement. No abdominopelvic lymphadenopathy. Lucency within L1 vertebral body likely represents simple cyst. Lower lumbar facet joint disease. Lower thoracic bony spurring suggesting mild spondylosis IMPRESSION: Multiple large left-sided renal calculi with left-sided percutaneous nephrostomy/ureteral drainage catheter in place. Historical: 08/18/22 Asa Thompson is a 51 y.o. female who presents for Urolithiasis (Patient reports she has no new symptoms wants stone removed.). Patient has been evaluated for nonfunctioning kidney has a staghorn stone on the left side. She has a nephrostomy tube in place which was placed due to sepsis. She is here for evaluation. She had a renal scan which shows 14% function. An 86% function in the right kidney. Patient is also diabetic. She denies any fevers chills nausea vomiting. Denies any hematuria. Has been voiding very well. 08/17/22 Location: Left kidney Duration: Was diagnosed a few weeks ago Context/Modifying Factors: Was admitted to [facility] with urosepsis Associated signs and symptoms: Currently denies fevers or chills but does have associated left flank pain from the nephroureteral catheter The patient is a 51-year-old female with diabetes who was recently admitted to [facility] with urosepsis. A CT scan and renal ultrasound demonstrated a left staghorn renal calculus. The report of the CT scan was not available at the time of this visit nor are any of the images. The renal ultrasound demonstrated that the left kidney was 10.8 x 5.9 x 5.3 cm with a cortical thickness of 1.2 cm. The right kidney was larger measuring 12.9 x 8.1 x 7.4 cm with a cortical thickness of 1.4 cm. During the course of her admission she had a left nephroureteral catheter placed. Approximately 2 weeks later she underwent a nuclear medicine renal scan that showed a differential function of 86% from the right kidney and 14% of the left kidney. She is here to discuss options. I discussed with her that even with the catheter in place there is poor functionality of the left kidney. She has a history of diabetes and would like to preserve her left renal (more content not included)...[facility]10-13-2022 NoteSubjective Patient ID: Asa Thompson is a 51 y.o. female who presents for Urolithiasis (Patient reports she has no new symptoms wants stone removed.). Patient has been evaluated for nonfunctioning kidney has a staghorn stone on the left side. She has a nephrostomy tube in place which was placed due to sepsis. She is here for evaluation. She had a renal scan which shows 14% function. An 86% function in the right kidney. Patient is also diabetic. She denies any fevers chills nausea vomiting. Denies any hematuria. Has been voiding very well. Review of Systems All other systems reviewed and are negative. Objective Visit Vitals BP 135/75 Pulse 101 Physical Exam Vitals and nursing note reviewed. Exam conducted with a instrument mechanics supervisor present. Constitutional: Appearance: Normal appearance. She is obese. HENT: Head: Normocephalic and atraumatic. Mouth/Throat: Mouth: Mucous membranes are dry. Eyes: Pupils: Pupils are equal, round, and reactive to light. Cardiovascular: Rate and Rhythm: Normal rate. Abdominal: General: Abdomen is flat. Comments: Left nephrostomy tube in place dressing changed. Musculoskeletal: General: Normal range of motion. Cervical back: Normal range of motion and neck supple. Neurological: Mental Status: She is alert. Psychiatric: Mood and Affect: Mood normal. Thought Content: Thought content normal. Assessment/Plan Diagnoses and all orders for this visit: Staghorn calculus - CT abdomen pelvis wo IV contrast; Future Hydronephrosis due to obstruction of ureter Recurrent urinary tract infection Plan: Left Total Nephrectomy patient has been counseled extensively on options for her. She has significant burden on the left side minimal function with nephrostomy tube in place. We discussed extensively that the function of the kidney will not improve even with removal of the stones. Therefore the risk associated with multiple procedures rescuer and the function of the kidney quite high. The risk benefits and alternatives were discussed extensively patient has elected to undergo left total nephrectomy in the near future. She will need clearance from her medical team prior to the procedure. She is advised to return to the emergency room or return to clinic if her symptoms worsen. Plan for left total robotic assisted nephrectomy.[facility]10-12-2022 NoteChief complaint: Left staghorn kidney stone History of Present Illness: Location: Left kidney Duration: Was diagnosed a few weeks ago Context/Modifying Factors: Was admitted to [facility] with urosepsis Associated signs and symptoms: Currently denies fevers or chills but does have associated left flank pain from the nephroureteral catheter Review of Systems: A 10 point review of systems was performed and is otherwise negative unless included in the chief complaint, history of present illness, histories, or the assessment and plan. Social History: Non-smoker Past Medical/Surgical History: Type 2 diabetes Family History: No family history of genitourinary cancer Physical Exam: Constitutional: In no acute distress Psychiatric: Normal affect, alert and oriented HEENT: No scleral icterus Pulmonary: Is not laboring to breathe Cardiovascular: No obvious cyanosis of the extremities Extremities: No significant lower extremity edema Neurologic: Grossly nonfocal Skin: No jaundice Genitourinary: Has a left nephroureteral catheter in place Diagnoses: Left staghorn calculus Assessment and Plan: The patient is a 51-year-old female with diabetes who was recently admitted to [facility] with urosepsis. A CT scan and renal ultrasound demonstrated a left staghorn renal calculus. The report of the CT scan was not available at the time of this visit nor are any of the images. The renal ultrasound demonstrated that the left kidney was 10.8 x 5.9 x 5.3 cm with a cortical thickness of 1.2 cm. The right kidney was larger measuring 12.9 x 8.1 x 7.4 cm with a cortical thickness of 1.4 cm. During the course of her admission she had a left nephroureteral catheter placed. Approximately 2 weeks later she underwent a nuclear medicine renal scan that showed a differential function of 86% from the right kidney and 14% of the left kidney. She is here to discuss options. I discussed with her that even with the catheter in place there is poor functionality of the left kidney. She has a history of diabetes and would like to preserve her left renal unit if at all possible. We will refer her to Dr. Almeida for further discussion regarding PCNL versus left nephrectomy.[facility]09-20-2022 NotePROCEDURE: IR CHG NEPHROSTMY CATH PROC 07/26/2022 HISTORY: ORDERING SYSTEM PROVIDED HISTORY: Left nephroureteral stent dysfunction, caught stent on appliance resulting in breaking the stent TECHNOLOGIST PROVIDED HISTORY: nephroureteral exchange Is the patient ?->No CONTRAST: 20 mL Isovue 370 SEDATION: Local anesthesia FLUOROSCOPY DOSE AND TYPE OR TIME AND EXPOSURES: Fluoro time: 7.1 minutes; dap: 3087 cGy per cm2 Number of images: 6 TECHNIQUE/DESCRIPTION OF PROCEDURE: Informed consent was obtained after a detailed explanation of the procedure including risks. Cove protocol was observed. Sterile gowns, masks, hats and gloves utilized for maximal sterile barrier. The patient was placed in the prone position on the fluoroscopy table, and the existing left nephroureteral stent and flank were prepped and draped in sterile manner. The stent tubing was noted to be broken with the lumen exposed near the level of the skin. A band log mill and carriage operator image demonstrated the distal loop approximating the expected position of the urinary bladder, and the proximal loop unformed. Injection of the left nephroureteral stent using a blunt 18 gauge needle through this defect with contrast demonstrated filling of the renal portion of the collecting system. A 0.035 inch Amplatz wire was inserted through the stent into the urinary bladder. The existing stent was removed over the wire. Under fluoroscopic guidance, a new 8 Niuean x 22 cm nephroureteral stent was advanced over the wire; the distal loop formed in the bladder, but the proximal loop did not form in the renal pelvis. Therefore, this catheter was removed over wire, and a new 8 Niuean x 24 cm nephroureteral stent was advanced over the wire. The distal loop formed in the expected position of the bladder, and the proximal loop partially formed in the renal pelvis. Contrast injection confirmed appropriate positioning. The stent was then attached to the skin with a 2-0 monofilament suture. The patient tolerated the procedure well. COMPLICATIONS: None immediately apparent IMPRESSION: 1. Successful left nephroureteral stent exchange. Interpreted by: Bishnu Alan MD Signed by: Bishnu Alan MD 07/26/22 [facility] NotePROCEDURE: IR CHG NEPHROSTMY CATH PROC 07/26/2022 HISTORY: ORDERING SYSTEM PROVIDED HISTORY: Left nephroureteral stent dysfunction, caught stent on appliance resulting in breaking the stent TECHNOLOGIST PROVIDED HISTORY: nephroureteral exchange Is the patient ?->No CONTRAST: 20 mL Isovue 370 SEDATION: Local anesthesia FLUOROSCOPY DOSE AND TYPE OR TIME AND EXPOSURES: Fluoro time: 7.1 minutes; dap: 3087 cGy per cm2 Number of images: 6 TECHNIQUE/DESCRIPTION OF PROCEDURE: Informed consent was obtained after a detailed explanation of the procedure including risks. Cove protocol was observed. Sterile gowns, masks, hats and gloves utilized for maximal sterile barrier. The patient was placed in the prone position on the fluoroscopy table, and the existing left nephroureteral stent and flank were prepped and draped in sterile manner. The stent tubing was noted to be broken with the lumen exposed near the level of the skin. A band log mill and carriage operator image demonstrated the distal loop approximating the expected position of the urinary bladder, and the proximal loop unformed. Injection of the left nephroureteral stent using a blunt 18 gauge needle through this defect with contrast demonstrated filling of the renal portion of the collecting system. A 0.035 inch Amplatz wire was inserted through the stent into the urinary bladder. The existing stent was removed over the wire. Under fluoroscopic guidance, a new 8 Niuean x 22 cm nephroureteral stent was advanced over the wire; the distal loop formed in the bladder, but the proximal loop did not form in the renal pelvis. Therefore, this catheter was removed over wire, and a new 8 Niuean x 24 cm nephroureteral stent was advanced over the wire. The distal loop formed in the expected position of the bladder, and the proximal loop partially formed in the renal pelvis. Contrast injection confirmed appropriate positioning. The stent was then attached to the skin with a 2-0 monofilament suture. The patient tolerated the procedure well. COMPLICATIONS: None immediately apparent MHPN RIS [id number] History of Present illness Narrative* Paloma Arceo MD - 07/26/2022 1:42 PM EDT [facility] CDU / OBSERVATION ENCOUNTER ATTENDING NOTE I performed a history and physical examination of the patient and discussed management with the resident or midlevel provider. I reviewed the resident or midlevel provider's note and agree with the documented findings and plan of care. Any areas of disagreement are noted on the chart. I was personally present for the trevizo portions of any procedures. I have documented in the chart those procedures where I was not present during the trevizo portions. I have reviewed the nurses notes. I agree with the chief complaint, past medical history, past surgical history, allergies, medications, social and family history as documented unless otherwise noted below. The Family history, social history, and ROS are effectively unchanged since admission unless noted elsewhere in the chart. Patient has had displaced nephrostomy tube. Patient going to IR this morning for replacement. [facility] observation unit for nephrostomy tube placement. Patient reassessed on arrival to the floor. Paloma Arceo MD Attending Emergency Physician * Song Sharif - 07/26/2022 12:50 AM EDT SPIRITUAL CARE DEPARTMENT - [facility] [place] Shift date: 07.25.2022 Shift day: Monday Shift # 2 Room # 10/17 Name: Asa Thompson Zoroastrian: unknown Place of scientologist: unknown Referral: Routine Visit Admit Date & Time: 07/25/2022 5:43 PM Assessment: Asa Thompson is a 51 y.o. female in the hospital with pain. Upon entering the room automobile and property underwriter observes patient in pain and states that she is looking for a nurse to provide pain management. Patient appears to be coping otherwise. Intervention: Robotic Weld Technician introduced self and title as cobol developer Robotic Weld Technician offered space for the patient to express feelings, needs, and concerns and provided a ministry presence. Outcome: Patient requests nursing assistance for pain. Accounting Administrator attempted to follow up with nursing staff. Plan: Chaplains will remain available to offer spiritual and emotional support as needed. . Spiritual Care Department [facility] [phone] 07/25/22 2310 Encounter Summary Service Provided For: Patient Referral/Consult From: [facility] Family members Last Encounter 07/25/22 Complexity of Encounter Moderate Begin Time 2310 End Time 2325 Total Time Calculated 15 min Encounter Type Initial Screen/Assessment Assessment/Intervention/Outcome Assessment Compromised coping Intervention Active listening;Discussed illness injury and it s impact;Explored/Affirmed feelings, thoughts, concerns Outcome Expressed feelings, needs, and concerns;Venting emotion documented in this encounterBON Moi Corporation Phone: [phone] 316-500109-16-2022 History of Present illness Narrative* Christine Campa RN - 07/22/2022 4:32 PM EDT Robotic Weld Technician went over all discharge paperwork with patient and Shaq bedside. Patient denies any further questions or concerns at this time. Patient also has a BMP script to get done within 1 week and have results sent to PCP. Robotic Weld Technician also called [facility] pharmacy in [place] and verified E-prescriptions were sent. Patient also has all personal belongings on discharge as well * Emelia Kumar - 07/22/2022 4:26 PM EDT CLINICAL PHARMACY NOTE: MEDS TO BEDS Total # of Prescriptions Filled: 3 The following medications were delivered to the patient: Furosemide 20mg Ciprofloxacin 500mg Hydralazine 25mg Additional Documentation: delivered to patient in room 541 07/22 at 3:33pm. Co- pay $16.50 cloBraclet. * Christine Campa RN - 07/22/2022 3:47 PM EDT Robotic Weld Technician was unable to set up follow up appointment for Dr. Chino Dempsey (urologist) on discharge d/tthe office being closed. Robotic Weld Technician explained to the patient that she will need to call [facility] to schedule that appointment with in 2 weeks * JOSH ZARAGOZA - 07/22/2022 3:03 PM EDT Images from the original note were not included. Physical Therapy Physical Therapy Cancel Note DATE: 07/22/2022 NAME: Asa Thompson : 1970 Patient not seen this date for Physical Therapy due to: Patient Declined: Pt stated that she is leaving. Pt stated that she doesn't need anything from therapy. * Shahid Galindo MD - 07/22/2022 11:19 AM EDT Renal Progress Note Patient : Asa Thompson; 51 y.o. Location: 0541/0541-01 Attending: Livia Cantrell MD Admit Date: 07/18/2022 Hospital Day: 4 Subjective: Patient was seen and examined. No new issues reported overnight. Mentioned that she feels a lot better today, no nausea or vomiting reported. She still has a left-sided PCN in place done on 07/19/2022. Urology following and will need outpatient definitive stone management. BMP results from today showed creatinine improved to 1.06 mg/dl with stable electrolytes potassium 4.1, bicarb 25, sodium 138. Lactic acid also improved to 1.9. Urine output documented as about 4.3 L and x5 more in the last 24 hours. Left nephrostomy tube output 3.9 L. Serology 07/20/2022: SPEP, immunofixation, complement levels all okay. K/L 1.67. ALEXANDRE still pending. UPC 1.92 but patient does have UTI and positive staghorn calculi. Renal ultrasound 07/20/2022: Right kidney 12.9 cm left kidney 10.8 cm. Impression: 1. Possible nephrostomy at the lower pole left kidney. Correlate with any recent instrumentation. 2. Equivocal dilatation of the upper pole left kidney. No overt hydronephrosis. 3. 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 Outpatient Medications: Medications Prior to Admission: insulin 70-30 (HUMULIN;NOVOLIN) (70-30) 100 UNIT per ML injection vial, Inject into the skin 2 times daily 80 units AM 50 Units PM aspirin 81 MG EC tablet, Take 81 mg by mouth daily atorvastatin (LIPITOR) 80 MG tablet, Take 80 mg by mouth daily DULoxetine (CYMBALTA) 60 MG extended release capsule, Take 60 mg by mouth daily gabapentin (NEURONTIN) 600 MG tablet, Take 600 mg by mouth 3 times daily. hydroCHLOROthiazide (HYDRODIURIL) 25 MG tablet, Take 25 mg by mouth daily levothyroxine (SYNTHROID) 200 MCG tablet, Take 200 mcg by mouth Daily losartan (COZAAR) 100 MG tablet, Take 100 mg by mouth daily metFORMIN (GLUCOPHAGE) 500 MG tablet, Take 500 mg by mouth 2 times daily (with meals) MAGNESIUM OXIDE 400 PO, Take 400 mg by mouth 2 times daily as needed Current Medications: Scheduled Meds: hydrALAZINE 25 mg Oral 3 times per day lidocaine 1 % injection 5 mL IntraDERmal Once sodium chloride flush 5-40 mL IntraVENous 2 times per day insulin lispro 0-16 Units SubCUTAneous TID WC insulin lispro 0-4 Units SubCUTAneous Nightly insulin lispro 5 Units SubCUTAneous TID DULoxetine 60 mg Oral Daily insulin glargine 50 Units SubCUTAneous BID tigecycline (TYGACIL) IVPB 50 mg IntraVENous Q12H atorvastatin 80 mg Oral Daily levothyroxine 200 mcg Oral Daily [Held by provider] hydroCHLOROthiazide 25 mg Oral Daily heparin (porcine) 5,000 Units SubCUTAneous 3 times per day gabapentin 600 mg Oral BID Continuous Infusions: sodium chloride 25 mL (07/22/22 0600) sodium bicarbonate infusion 50 mL/hr at 07/22/22 0312 dextrose PRN Meds: sodium chloride flush, sodium chloride, fentanNYL, oxyCODONE, ondansetron OR ondansetron, polyethylene glycol, acetaminophen OR acetaminophen, glucose, dextrose bolus OR dextrose bolus, glucagon (rDNA), dextrose Input/Output: I/O last 3 completed shifts: In: 4236.1 [P.O.:580; I.V.:3350.1; IV Piggyback:306] Out: 6520 [Urine:6520]. Patient Vitals for the past 96 hrs (Last 3 readings): Weight 07/18/22 2054 255 lb 11.7 oz (116 kg) Vital Signs: Temperature: Temp: (P) 97.8 F (36.6 C) TMax: Temp (24hrs), Av.3 F (36.8 C), Min:97.8 F (36.6 C), Max:98.6 F (37 C) Respirations: Resp: 19 Pulse: Heart Rate: 94 BP: BP: (!) 147/71 BP Range: Systolic (24hrs), Av , Min:147 , Max:160 Diastolic (24hrs), Av, Min:66, Max:92 Physical Examination: General: AAO x 3, speaking in full sentences, no accessory muscle use. HEENT: Atraumatic, normocephalic, no throat congestion, moist mucosa. Eyes: Pupils equal, round and reactive to light, EOMI. Neck: Supple Chest: Bilateral vesicular breath sounds, no rales or wheezes. Cardiac: S1 S2 RR, no murmurs, gallops or rubs. Abdomen: Soft, non-tender, no masses or organomegaly, BS audible. Positive left- sided PCN in place. : No suprapubic or flank tenderness. Neuro: AAO x 3, No FND. SKIN: No rashes, good skin turgor. Extremities: No edema. Labs: Recent Labs 07/20/22 0148 07/20/22 0426 07/20/22 1423 WBC 12.3* 10.2 6.6 RBC 3.62* 3.74* 3.84* HGB 10.6* 11.0* 11.0* HCT 31.3* 32.4* 33.3* MCV 86.5 86.6 86.7 MCH 29.3 29.4 28.6 MCHC 33.9 34.0 33.0 RDW 13.5 13.6 13.8 PLT 280 252 See Reflexed IPF Result MPV 10.2 10.4 -- BMP: Recent Labs 07/21/22 0742 07/21/22 1623 07/22/22 0414 NA 134* 136 138 K 3.8 3.7 4.1 CL 101 101 101 CO2 20 23 25 BUN 28* 26* 24* CREATININE 1.28* 1.00* 1.06* GLUCOSE 224* 157* 172* CALCIUM 8.1* 8.3* 8.5* SPEP: Lab Results Component Value Date/Time PROT 6.3 07/20/2022 02:51 PM ALBCAL 3.6 07/20/2022 02:51 PM ALBPCT 57 07/20/2022 02:51 PM LABALPH 0.2 07/20/2022 02:51 PM LABALPH 0.9 07/20/2022 02:51 PM A1PCT 4 07/20/2022 02:51 PM A2PCT 15 07/20/2022 02:51 PM LABBETA 0.9 07/20/2022 02:51 PM BETAPCT 14 07/20/2022 02:51 PM GAMGLOB 0.6 07/20/2022 02:51 PM GGPCT 10 07/20/2022 02:51 PM PATH Reviewed by pathologist: Mary Stovall M.D. 07/20/2022 03:05 PM UPEP: Lab Results Component Value Date/Time LABPE 07/20/2022 03:05 PM ELEVATED PROTEIN CONCENTRATION. MOST SERUM PROTEINS ARE DETECTED IN THIS URINE. USUALLY OBSERVED WITH MARKEDLY INCREASED NON-SELECTIVE GLOMERULAR PERMEABILITY (i.e. SEVERE GLOMERULAR DISEASE), CONTAMINATION OF C3: Lab Results Component Value Date/Time C3 209 07/20/2022 02:23 PM C4: Lab Results Component Value Date/Time C4 41 07/20/2022 02:23 PM Urinalysis/Chemistries: Lab Results Component Value Date/Time NITRU NEGATIVE 07/20/2022 03:05 PM COLORU [place] 07/20/2022 03:05 PM PHUR 5.0 07/20/2022 03:05 PM WBCUA 10 TO 20 07/20/2022 03:05 PM RBCUA TOO NUMEROUS TO COUNT 07/20/2022 03:05 PM SPECGRAV 1.022 07/20/2022 03:05 PM LEUKOCYTESUR MODERATE 07/20/2022 03:05 PM UROBILINOGEN Normal 07/20/2022 03:05 PM BILIRUBINUR NEGATIVE 07/20/2022 03:05 PM GLUCOSEU 3+ 07/20/2022 03:05 PM KETUA NEGATIVE 07/20/2022 03:05 PM Urine Sodium: Lab Results Component Value Date/Time BUD 26 07/20/2022 03:05 PM Urine Chloride: Lab Results Component Value Date/Time CLUR 50 07/20/2022 03:05 PM Urine Creatinine: Lab Results Component Value Date/Time LABCREA 76.5 07/20/2022 03:05 PM LABCREA 75.7 07/20/2022 03:05 PM Radiology: Reviewed. 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 Baseline creatinine not available but last known creatininein December 2021 was 0.90 mg/dl. Left flank pain. Left staghorn calculi. Left-sided hydronephrosis status post left-sided PCN in place done on 07/19/2022. Hyponatremia. Metabolic acidosis-improved. Left renal atrophy. Pyelonephritis. History of anaphylaxis with penicillin. Diabetes. Hypertension. History of coronary artery disease. History of nephrolithiasis. Long-term NSAID usage. Plan: Can stop IV fluids. Would not recommend discharging on hydrochlorothiazide due to hyponatremia. Can start Lasix 20 mg p.o. daily. Okay to continue losartan upon discharge if renal function continues to be stable. Staghorn calculi management as per urology. Since then renal function is much improved and urine output okay, nephrology will sign off. Please call with any questions. Patient will need to follow-up with urology as outpatient and she should establish nephrology care as outpatient as well, patient lives near [facility] and will likely ask her PCP to get nephrological referral otherwise if she wants she can follow-up in the clinic with us as well. She should get BMP results done in 1 week and results faxed to PCP. Nutrition Please ensure that patient is on a renal diet/TF. Avoid nephrotoxic drugs/contrast exposure. Shahid Galindo MD [facility] This note is created with the assistance of a speech-recognition program. While intending to generate a document that actually reflects the content of the visit, no guarantees can be provided that every mistake has been identified and corrected by editing. * Urban Noriega MD - 07/22/2022 10:27 AM EDT Images from the original note were not included. [facility] - Progress Note Today's Date and Time: 07/22/2022, 10:27 AM Impression : S/p left percutaneous nephrostomy tube placement 07/19/2022 Calculous pyelonephritis with E coli Sepsis OMAR Anaphylaxis with penicillin Hypothyroidism Diabetes mellitus Hypertension History of coronary artery disease Anxiety and depression Neuropathic pain Recommendations: Cipro 500 mg po BID . Stop date 08-05-22 Patient has taken this before and tolerated it D/C Tigecycline Completed Tobramycin 200 mg x 1 dose Blood and urine cultures: No growth Urine culture from [place]: E coli, multi-sensitive Patient will need treatment with Cipro at time of lithotripsy in the future. Medical Decision Making/Summary/Discussion:07/22/2022 Patient with Lt staghorn calculus with left upper pole hydronephrosis and pyelitis s/p L nephrostomy tube placement 07/19/22 Appeared septic and had mental status changes upon presentation Has improved since then. Mentation back to normal as of 07-21-22 Blood and urine cultures: No growth Anaphylaxis with penicillins On Tigecycline pending further data Urology plans for renal scan as an outpatient prior to deciding on surgical management of stone. OMAR with minor improvement. Plan Cipro for 2 weeks. Patient will need treatment with Cipro at time of lithotripsy in the future. Infection Control Recommendations Cove Precautions Antimicrobial Stewardship Recommendations Simplification of therapy Coordination of Outpatient Care: Estimated Length of IV antimicrobials: 07-22-22 Patient will need Midline Catheter Insertion: TBD Patient will need PICC line Insertion:BD Patient will need: Home IV , Infusion Center, SNF, LTAC: TBD Patient will need outpatient wound care: Chief complaint/reason for consultation: Obstructive UTI History of Present Illness: Asa Thompson is a 51 y.o.-year-old female who was initially admitted on 07/18/2022. Patient seen at the request of Dr. Cantrell. INITIAL HISTORY: Patient is a 51-year-old female who presents to [place] with a chief complaint of left flank pain that started at 4 AM on 07/18/2022. Patient states that the pain is intense and is radiating towards her left groin. Patient denies any fever, burning urination, urgency frequency, vomiting, loose stool, any shortness of breath or chest discomfort. Patient went to [place] and had a CT imaging done. 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 Urinalysis positive for leukocytes and nitrates and blood. White blood cell count 13.7 and creatinine of 1.45. Patient needed urology evaluation and nephrostomy tube placement . She was transferred to [place]. Urology was consulted. Urology plan for IR intervention. Patient was admitted to the floor for further management. Since her stay in the hospital, interventional radiology was consulted for left percutaneous nephrostomy tube placement. This was performed on 07/19/2022. On 07/20/2010 her creatinine had worsened and her urine was alexander in color. Patient was not oriented and not able to answer majority of questions. Patient's daughter and nurse were in the room to answer my questions. Patient's daughter states that she does not feel that she is oriented. Patient's daughter states that she feels cold and looks of clammy. She has noticed that her mother has been having chills and shaking. She denies any nausea or vomiting or diarrhea. Per RN, patient was having an extreme amount of pain as well as a low-grade fever. She gave her Tylenol to to help with pain levels as well as to control fever. Patient was not due for regular scheduled pain medication. Patient states that her pain is still a 10 out of 10 however rated a 15 out of 10 prior to Tylenol. CURRENT EVALUATION 07/22/2022 BP (!) 147/71 Pulse 94 Temp (P) 97.8 F (36.6 C) Resp 19 Ht 5' 5 (1.651 m) Wt 255 lb 11.7oz (116 kg) SpO2 96% BMI 42.56 kg/m Afebrile VS stable Patient feels better Mentation back to normal No complaints No new issues per RN Blood and urine cultures: No growth at V Urine culture at [place] with E coli Patient reports tolerating Cipro in the past She will need 2 weeks treatment. In the future she will need Cipro again before her lithotripsy procedure or other surgical procedure. Labs, X rays reviewed: 07/20/2022 BUN: 33-->28 Cr: 1.6-->1.28 Glucose: 427-->227 Calcium: 8.2-->8.1 Sodium: 127-->134 Chloride: 96 CO2: 17-->20 GFR: 32-->44 WBC: 10.2 Hb: 11.0 Plat: 252 CRP: Cultures: Urine: 07-18-22: E coli- Multi-sensitive at [place] 07/18/2022: No growth 07/19/2022: Urinalysis: Turbid, glucose +1, urine Hgb large, leukocyte esterase large, proteins. Blood: 07/18/2022: No growth x 2 : No growth Sputum : Wound: MRSA Nares: Imagin07/20/2022 Chest x-ray Impression 1. Mild vascular congestion. 2. Minimal patchy opacities at the lung bases, possibly related to atelectasis. No dense airspace consolidation. Kidney flow and function - Needs to be performed Ultrasound of retroperitoneal Impression 1. Possible nephrostomy at the lower pole left kidney. Correlate with any recent instrumentation. 2. Equivocal dilatation of the upper pole left kidney. No overt hydronephrosis. 3. 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 RECOMMENDATIONS: Unavailable 10/18/2022 IR guided nephrostomy cath placement Impression Successful percutaneous left nephroureteral stent placement via lower pole, past a large staghorn calculus, with distal pigtail tip position in the urinary bladder, as above. Findings were discussed with KASH CLAY at 4:09 pm on 07/19/2022. Discussed with patient, RN, family. I have personally reviewed the past medical history, past surgical history, medications, social history, and family history, and I have updated the database accordingly. Past Medical History: Past Medical History: Diagnosis Date Coronary artery disease History of nephrolithiasis History of recurrent UTIs Type 2 diabetes mellitus with hyperglycemia, without long-term current use of insulin (HCC) Past Surgical History: Past Surgical History: Procedure Laterality Date IR NEPHROSTOMY PERCUTANEOUS LEFT 07/19/2022 IR NEPHROSTOMY PERCUTANEOUS LEFT 07/19/2022 Noman Mullen MD [facility] SPECIAL PROCEDURES Medications: hydrALAZINE 25 mg Oral 3 times per day lidocaine 1 % injection 5 mL IntraDERmal Once sodium chloride flush 5-40 mL IntraVENous 2 times per day insulin lispro 0-16 Units SubCUTAneous TID insulin lispro 0-4 Units SubCUTAneous Nightly insulin lispro 5 Units SubCUTAneous TID DULoxetine 60 mg Oral Daily insulin glargine 50 Units SubCUTAneous BID tigecycline (TYGACIL) IVPB 50 mg IntraVENous Q12H atorvastatin 80 mg Oral Daily levothyroxine 200 mcg Oral Daily [Held by provider] hydroCHLOROthiazide 25 mg Oral Daily heparin (porcine) 5,000 Units SubCUTAneous 3 times per day gabapentin 600 mg Oral BID Social History: Social History Socioeconomic History Marital status: Spouse name: Not on file Number of children: Not on file Years of education: Not on file Highest education level: Not on file Occupational History Not on file Tobacco Use Smoking status: Not on file Smokeless tobacco: Not on file Substance and Sexual Activity Alcohol use: Not on file Drug use: Not on file Sexual activity: Not on file Other Topics Concern Not on file Social History Narrative Not on file Social Determinants of Health Financial Resource Strain: Not on file Food Insecurity: Not on file Transportation Needs: Not on file Physical Activity: Not on file Stress: Not on file Social Connections: Not on file Intimate Partner Violence: Not on file Housing Stability: Not on file Family History: History reviewed. No pertinent family history. Allergies: Penicillins, Dilaudid [hydromorphone], and Morphine Review of Systems: Constitutional: No fevers or chills. No systemic complaints Head: No headaches Eyes: No double vision or blurry vision. No conjunctival inflammation. ENT: No sore throat or runny nose.. No hearing loss, tinnitus or vertigo. Cardiovascular: No chest pain or palpitations.No shortness of breath. No YE Lung: No shortness of breath or cough. No sputum production Abdomen: No nausea, vomiting, diarrhea, or abdominal pain.. No cramps. Genitourinary: Moderate left flank pain at incisional site nephrostomy tube in place with alexander urine Musculoskeletal: No muscle aches or pains. No joint effusions, swelling or deformities Hematologic: No bleeding or bruising. Neurologic: No headache, weakness, numbness, or tingling. Integument: No rash, no ulcers. Psychiatric: No depression. Endocrine: No polyuria, no polydipsia, no polyphagia. Physical Examination : Patient Vitals for the past 8 hrs: BP Temp Temp src Pulse Resp SpO2 07/22/22 0813 -- (P) 97.8 F (36.6 C) -- -- -- -- 07/22/22 0812 (!) 147/71 97.8 F (36.6 C) Oral 94 19 96 % 07/22/22 0736 (!) 160/66 98.6 F (37 C) Oral 88 15 94 % 07/22/22 0416 (!) 151/73 98.6 F (37 C) Oral 95 13 94 % General Appearance: Awake, alert, and in no apparent distress Head: Normocephalic, no trauma Eyes: Pupils equal, round, reactive to light and accommodation; extraocular movements intact; sclera anicteric; conjunctivae pink. No embolic phenomena. ENT: Oropharynx clear, without erythema, exudate, or thrush. No tenderness of sinuses. Mouth/throat: mucosa pink and moist. No lesions. Dentition in good repair. Neck:Supple, without lymphadenopathy. Thyroid normal, No bruits. Pulmonary/Chest: Clear to auscultation, without wheezes, rales, or rhonchi. No dullness to percussion. Cardiovascular: Regular rate and rhythm without murmurs, rubs, or gallops. Abdomen: Moderate left flank pain at incisional site nephrostomy tube in place with alexander urine All four Extremities: No cyanosis, clubbing, edema, or effusions. Neurologic: No gross sensory or motor deficits. Skin: Warm and dry with good turgor.No signs of peripheral arterial or venous insufficiency. No ulcerations. No open wounds. Medical Decision Making -Laboratory: I have independently reviewed/ordered the following labs: CBC with Differential: Recent Labs 07/20/22 0426 07/20/22 1423 WBC 10.2 6.6 HGB 11.0* 11.0* HCT 32.4* 33.3* PLT 252 See Reflexed IPF Result LYMPHOPCT 3* 7* MONOPCT 4 5 BMP: Recent Labs 07/21/22 1623 07/22/22 0414 NA 136 138 K 3.7 4.1 CL 101 101 CO2 23 25 BUN 26* 24* CREATININE 1.00* 1.06* Hepatic Function Panel: Recent Labs 07/20/22 1451 PROT 6.3* No results for input(s): RPR in the last 72 hours. No results for input(s): HIV in the last 72 hours. No results for input(s): BC in the last 72 hours. Lab Results Component Value Date/Time RBC 3.84 07/20/2022 02:23 PM WBC 6.6 07/20/2022 02:23 PM TURBIDITY Cloudy 07/20/2022 03:05 PM Lab Results Component Value Date/Time CREATININE 1.06 07/22/2022 04:14 AM GLUCOSE 172 07/22/2022 04:14 AM Medical Decision Making-Imagin07/20/2022 Narrative EXAMINATION: ONE X-RAY VIEW OF THE CHEST 07/20/2022 6:31 am COMPARISON: None. HISTORY: ORDERING SYSTEM PROVIDED HISTORY: consolidation TECHNOLOGIST PROVIDED HISTORY: Consolidation FINDINGS: Heart size is mildly prominent, and there is mild vascular congestion. There are minimal patchy opacities at the lung bases, which may be related to atelectasis. No dense airspace consolidation. No pneumothorax or pleural effusion. Impression 1. Mild vascular congestion. 2. Minimal patchy opacities at the lung bases, possibly related to atelectasis. No dense airspace consolidation. Narrative EXAMINATION: ULTRASOUND OF THE KIDNEYS 07/20/2022 9:31 am COMPARISON: 07/18/2022, CT renal stone protocol HISTORY: ORDERING SYSTEM PROVIDED HISTORY: OMAR TECHNOLOGIST PROVIDED HISTORY: Bilateral Renal Ultrasound OMAR 51-year-old female with acute kidney injury FINDINGS: Right kidney measures 12.9 x 8.1 x 7.4 cm. Right renal cortical thickness measures 1.4 cm. 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 Left kidney measures 10.8 x 5.9 x 5.3 cm. Left renal cortical thickness measures 1.2 cm. Equivocal dilatation of the upper pole left kidney. No overt hydronephrosis or perinephric fluid. Gross preservation of the bilateral corticomedullary differentiation. Possible nephrostomy at the lower pole left kidney. Impression 1. Possible nephrostomy at the lower pole left kidney. Correlate with any recent instrumentation. 2. Equivocal dilatation of the upper pole left kidney. No overt hydronephrosis. 3. 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 RECOMMENDATIONS: 07/19/2022 Narrative PROCEDURE: PERCUTANEOUS ANTEGRADE PYELOGRAM LEFT PERCUTANEOUS NEPHROURETERAL STENT PLACEMENT ULTRASOUND AND FLUOROSCOPY GUIDANCE MODERATE CONSCIOUS SEDATION 07/19/2022 HISTORY: ORDERING SYSTEM PROVIDED HISTORY: staorn TECHNOLOGIST PROVIDED HISTORY: staghorn Is the patient ?->No SEDATION: Versed 0.5 mg IV, fentanyl 125 mcg IV were administered intravenously under my direct supervision; hemodynamic monitoring was provided by registered RN during the entire procedure which lasted approximately 1 hour. CONTRAST: Isovue 370-10 mL FLUOROSCOPY DOSE AND TYPE OR TIME AND EXPOSURES: Fluoroscopy time-9.4 minutes D AP-3918 cGy cm squared. TECHNIQUE Informed consent was obtained following detailed description of the procedure including risks, benefits, and alternatives. [place] protocol was followed. The patient's flank was prepped and draped in sterile fashion and local anesthesia was achieved with lidocaine. An Accustick needle was advanced into a posterior mid pole calyx using ultrasound and fluoroscopy guidance and a limited percutaneous antegrade pyelogram was performed. Subsequently, a 2nd 21 gauge needle was used to access a lower pole calyx, a 2nd 3 in 1 transition set and 0.018 inch guidewire was used to insert a 0.035 glidewire which was manipulated into the urinary bladder using a 4 Niuean Kumpe the catheter; the Glidewire was exchanged for a 0.035 inch Amplatz wire, the transition set and Kumpe the catheter removed, and an 8 FR percutaneous nephroureteral stent was inserted after the tract was dilated. The proximal pigtail was formed with some difficulty in the renal pelvis due to staghorn calculus; the distal pigtail was partially formed but in the urinary bladder. Excellent urine output was demonstrated. The catheter was sutured to the skin and the patient tolerated the procedure well. FINDINGS: Initial percutaneous antegrade pyelogram demonstrates hydronephrosis with a large staghorn calculus. Subsequent images show puncture of the lower pole calyx, 4 Niuean Kumpe the catheter manipulation and glidewire extension into the urinary bladder. Subsequent images show the nephroureteral stent in satisfactory position. Impression Successful percutaneous left nephroureteral stent placement via lower pole, past a large staghorn calculus, with distal pigtail tip position in the urinary bladder, as above. Findings were discussed with KASH CLAY at 4:09 pm on 07/19/2022. Medical Decision [id number]: Medical Decision Making-Other: Note: Labs, medications, radiologic studies were reviewed with personal review of films Large amounts of data were reviewed Discussed with nursing Staff, conference planner Infection Control and Prevention measures reviewed All prior entries were reviewed Administer medications as ordered Prognosis: Good Discharge planning reviewed Follow up as outpatient. Thank you for allowing us to participate in the care of this patient. Please call with questions. Urban Noriega MD * Keo Guevara MD - 07/22/2022 7:45 AM EDT Physician Progress Note PATIENT: ASA THOMPSON CSN #: [id number] : 1970 ADMIT DATE: 07/18/2022 3:19 PM DISCH DATE: RESPONDING PROVIDER #: KEO GUEVARA QUERY TEXT: Pt admitted with pyelonephritis. Pt noted to have fever, tachycardia and elevated procal. If possible, please document in the progress notes and discharge summary if you are evaluating and /or treating any of the following: The medical record reflects the following: Risk Factors: pyelonephritis Clinical Indicators: on admission WBC 12.3 and lactic acid 3.8 without SIRS, 07/20 developed fever of 102.4 with tachycardia- max HR 110 with procalcitonin of 48.54 and OMAR with ATN; ID documenting sepsis, per Dr Cantrell The cause of the patient's acute toxic metabolic encephalopathy could be sepsis due to UTI along with fentanyl usage , urine cx no growth, blood cx pending Treatment: IVF bolus, IV Rocephin and Cipro-changed to Tigecycline per ID, IR neph tube placement, nephrology and ID consults, renal US, labs, cultures Thank you, Judith LUNA,RN, CDI email - [email or web address] cell- [phone] office hours [id number] Options provided: -- Sepsis, present on admission -- Sepsis, not present on admission -- pyelonephritis without sepsis -- Other - I will add my own diagnosis -- Disagree - Not applicable / Not valid -- Disagree - Clinically unable to determine / Unknown -- Refer to Clinical Documentation Reviewer PROVIDER RESPONSE TEXT: This patient has sepsis which was present on admission. Query created by: Judith Horvath on 07/21/2022 9:07 AM Electronically signed by: KEO GUEVARA 07/22/2022 7:44 AM * Keo Guevara MD - 07/22/2022 7:44 AM EDT Images from the original note were not included. [facility] Internal Medicine Teaching Residency Program Inpatient Daily Progress Note Patient: Asa Thompson Date of : 1970 Acct: [id number] Room: 0541/0541-01 Admit date: 07/18/2022 Today's date: 07/22/22 Number of days in the hospital: 4 SUBJECTIVE Admitting Diagnosis: Calculous pyelonephritis CC: Left flank pain Pt examined at bedside. Chart & results reviewed. No acute events overnight Patient remained afebrile and hemodynamically stable. Pain better controlled with pain meds IR guided left percutaneous nephrostomy tube placement-output last 24 hours 4 L Creatinine trending down-1.06 Patient's urine culture was positive for E. Coli- multi sensitive at [place] Lactic acid-1.5-2.3 Urology on board-okay to be discharged with 2-week follow-up in outpatient with Lasix renogram. nephrostomy tube to be maintained. ROS: Constitutional: negative for chills, fevers, sweats Respiratory: negative for cough, dyspnea on exertion, hemoptysis, shortness of breath, wheezing Cardiovascular: negative for chest pain, chest pressure/discomfort, lower extremity edema, palpitations Gastrointestinal: negative for abdominal pain, constipation, diarrhea, nausea, vomiting Neurological: negative for dizziness, headache BRIEF HISTORY The patient is a pleasant 51 y.o. female with past medical history of diabetes, 2 occurrence of renal stone presents with a chief complaint of left flank pain that started 4 AM in the morning today.pain was radiating towards left groin, no fever, burning micturition, urgency or frequency, vomiting,loose stool, shortness of breath or chest discomfort. Patient went to [place] and CT imaging showed partially obstructing large staghorn calcification in left renal pelvis and perinephric edema-small amount of air and gas concerning for pyelonephritis.UA positive for leukocytes and nitrites with blood.WBC count 13.7 and creatinine of 1.45. Patient needed urology evaluation and nephrostomy tube placement so transferred to the [facility]. Urology consulted plan for IR tomorrow. patient admittedto the floor for further management. OBJECTIVE Vital Signs: BP (!) 160/66 Pulse 88 Temp 98.6 F (37 C) (Oral) Resp 15 Ht 5' 5 (1.651 m) Wt 255 lb 11.7 oz (116 kg) SpO2 94% BMI 42.56 kg/m Temp (24hrs), Av.3 F (36.8 C), Min:97.2 F (36.2 C), Max:98.6 F (37 C) In: 1814.2 Out: 4600 [Urine:4600] Physical Exam: PHYSICAL EXAMINATION: Constitutional: This is a well developed, well nourished, 51 y.o. year old female who is alert, oriented, cooperative and in no apparent distress. Head:normocephalic and atraumatic. EENT: PERRLA. No conjunctival injections. Septum was midline, mucosa was without erythema, exudatesor cobblestoning. No thrush was noted. Neck: Supple without thyromegaly. No elevated JVP. Trachea was midline. Respiratory: Chest was symmetrical without dullness to percussion. Breath sounds bilaterally were clear to auscultation. There were no wheezes, rhonchi or rales. There is no intercostal retraction oruse of accessory muscles. No egophony noted. Cardiovascular: Regular without murmur, clicks, gallops or rubs. Abdomen: Left nephrostomy tube in place, slightly rounded and soft without organomegaly. No rebound, rigidity or guarding was appreciated. Lymphatic: No lymphadenopathy. Musculoskeletal: Normal curvature of the spine. No gross muscle weakness. Extremities: No lower extremity edema, ulcerations, tenderness, varicosities or erythema. Muscle size, tone and strength are normal. No involuntary movements are noted. Skin: Warm and dry. Good color, turgor and pigmentation. No lesions or scars. No cyanosis or clubbing Neurological/Psychiatric: The patient's general behavior, level of consciousness, thought content and emotional status is normal. Medications: Scheduled Medications: hydrALAZINE 25 mg Oral 3 times per day lidocaine 1 % injection 5 mL IntraDERmal Once sodium chloride flush 5-40 mL IntraVENous 2 times per day insulin lispro 0-16 Units SubCUTAneous TID WC insulin lispro 0-4 Units SubCUTAneous Nightly insulin lispro 5 Units SubCUTAneous TID WC DULoxetine 60 mg Oral Daily insulin glargine 50 Units SubCUTAneous BID tigecycline (TYGACIL) IVPB 50 mg IntraVENous Q12H atorvastatin 80 mg Oral Daily levothyroxine 200 mcg Oral Daily [Held by provider] hydroCHLOROthiazide 25 mg Oral Daily heparin (porcine) 5,000 Units SubCUTAneous 3 times per day gabapentin 600 mg Oral BID Continuous Infusions: sodium chloride 25 mL (07/22/22 0600) sodium bicarbonate infusion 50 mL/hr at 07/22/22 0312 dextrose PRN Medicationssodium chloride flush, 5-40 mL, PRN sodium chloride, 25 mL, PRN fentanNYL, 50 mcg, Q1H PRN oxyCODONE, 5 mg, Q4H PRN ondansetron, 4 mg, Q8H PRN Or ondansetron, 4 mg, Q6H PRN polyethylene glycol, 17 g, Daily PRN acetaminophen, 650 mg, Q6H PRN Or acetaminophen, 650 mg, Q6H PRN glucose, 4 tablet, PRN dextrose bolus, 125 mL, PRN Or dextrose bolus, 250 mL, PRN glucagon (rDNA), 1 mg, PRN dextrose, , Continuous PRN Diagnostic Labs: CBC: Recent Labs 07/20/22 0148 07/20/22 0426 07/20/22 1423 WBC 12.3* 10.2 6.6 RBC 3.62* 3.74* 3.84* HGB 10.6* 11.0* 11.0* HCT 31.3* 32.4* 33.3* MCV 86.5 86.6 86.7 RDW 13.5 13.6 13.8 PLT 280 252 See Reflexed IPF Result BMP: Recent Labs 07/21/22 0742 07/21/22 1623 07/22/22 0414 NA 134* 136 138 K 3.8 3.7 4.1 CL 101 101 101 CO2 20 23 25 BUN 28* 26* 24* CREATININE 1.28* 1.00* 1.06* BNP: No results for input(s): BNP in the last 72 hours. PT/INR: Recent Labs 07/19/22 0753 PROTIME 9.8 INR 0.9 APTT: No results for input(s): APTT in the last 72 hours. CARDIAC ENZYMES: No results for input(s): CKMB, CKMBINDEX, TROPONINI in the last 72 hours. Invalid input(s): CKTOTAL;3 FASTING LIPID PANEL:No results found for: CHOL, HDL, TRIG LIVER PROFILE: No results for input(s): AST, ALT, ALB, BILIDIR, BILITOT, ALKPHOS in the last 72 hours. MICROBIOLOGY: Lab Results Component Value Date/Time CULTURE NO GROWTH 1 DAY 07/20/2022 03:59 PM Imaging: No results found. ASSESSMENT & PLAN IMPRESSION This is a 51 y.o. female who presented with left flank pain and found to have staghorn calculus left kidney. Patient admitted to inpatient status for nephrostomy tube placement Principal Problem: Sepsis with calculous pyelonephritis-improving Plan: urology on board- s/p Left nephrostomy tube placement 07/19-okay to be discharged with 2-week follow-up in outpatient with Lasix renogram. nephrostomy tube to be maintained. Patient is on tigecycline and tobramycin by ID Will be discharged on per oral Cipro 500 mg twice a day till 08/05. OMAR-resolved Hypothyroidism Continue home levothyroxine 200 mcg Diabetes mellitus-on Lantus 50 BD and high dose scaling At home takes Humulin 70/30-80 units in the morning and 50 units in the night and metformin 500 mg twice daily Hypertension At home on hydrochlorothiazide 25 mg and losartan 100 mg, held-started on hydralazine 25 mg 3 timesdaily. History of CAD-on aspirin 81 mg and atorvastatin 80 mg Anxiety and depression-takes duloxetine 60 mg at home- resumed Neuropathic pain-takes 1200 mg gabapentin twice a day at home DVT ppx: Heparin GI ppx: Not indicated at this time PT/OT/SW-consulted we will follow-up Discharge Planning: Patient will be going home. Keo Guevara MD Internal Medicine Resident, PGY-1 [facility]; [place], [place] 07/22/2022, 7:44 AM Associated attestation - Livia Cantrell MD - 07/22/2022 2:02 PM EDT Attending Physician Statement I have discussed the case of Asa Thompson, including pertinent history and exam findings with the resident/fellow/medical student/RAND TACKER/PA. I have seen and examined the patient and the trevizo elementsof the encounter have been performed by me. I agree with the assessment, plan and orders as documented by the resident/fellow/medical student/RAND TACKER/PA With changes made to the note as needed. Pt was seen during rounds. Review of Systems: In addition to the pertinent positives and negatives as stated within HPI and the review of systemsas documented in their notes, all other systems were reviewed when able to and are reported negative. No fever Hemodynamic stable Blood sugars are better than before and acceptable Patient not needing any oxygen Fluid balance is -2.9 L Renal function has been improving Microbiologic data remains negative at [facility] Increase activity Percutaneous nephrostomy tube is draining Discharge planning in progress Livia Cantrell MD 07/22/2022 2:01 PM * TERRY BERGMAN - 07/21/2022 11:50 PM EDT Notified resident at 2345 of patient having increased stools. Requested probiotic to prevent cdiff and also to adjust amount of labs being drawn, awaiting response. * Latoya Chatterjee RN - 07/21/2022 3:44 PM EDT Fax received from [facility], patient's urine culture is positive for e-coli. Page sent to Dr. Noriega. * Luis Chavez MD - 07/21/2022 3:40 PM EDT Images from the original note were not included. SUBJECTIVE Patient was seen and examined. Patient was lying flat. She was alert and awake. Patient continues to put out decent amount of urine. Her left PCN is functioning. Her creatinine is also improving and down to 1.2 mg/dL. Hemodynamically patient remained stable. He is not febrile. Patient voiced no complaint. Patient is receiving IV fluids with bicarbonate at 75 mill per hour. Her most recent bicarbonate is20. Sodium is slightly low at 134. Potassium in the 2 pheresis was negative for multiple myeloma Her free light chain ratio was 1.6 within acceptable range Her both C3 and C4 was elevated Renal ultrasound shows staghorn calculi on the left hilum. OBJECTIVE CURRENT TEMPERATURE: Temp: 98.6 F (37 C) MAXIMUM TEMPERATURE OVER 24HRS: Temp (24hrs), Av.8 F (37.7 C), Min:97.2 F (36.2 C), Max:102.4 F(39.1 C) CURRENT RESPIRATORY RATE: Resp: 13 CURRENT PULSE: Heart Rate: 96 CURRENT BLOOD PRESSURE: BP: (!) 153/88 24HR BLOOD PRESSURE RANGE: Systolic (24hrs), Av , Min:132 , Max:177 ; Diastolic (24hrs), Av, Min:59, Max:89 24HR INTAKE/OUTPUT: Intake/Output Summary (Last 24 hours) at 07/21/2022 1541 Last data filed at 07/21/2022 1118 Gross per 24 hour Intake 2641.85 ml Output 3320 ml Net -678.15 ml WEIGHT :Patient Vitals for the past 96 hrs (Last 3 readings): Weight 07/18/22 2054 255 lb 11.7 oz (116 kg) PHYSICAL EXAM GENERAL APPEARANCE: Awake and alert x3 SKIN: Warm to touch EYES: conjunctivae normal and sclera anicteric ENT: No thrush or pharyngeal congestion NECK: No JVD or carotid bruit PULMONARY: Bilateral air entry and clear CADRDIOVASCULAR: S1 and S2 audible no S3 or murmur ABDOMEN: Soft and nontender bowel sounds are positive no organomegaly EXTREMITIES: Trace edema CURRENT MEDICATIONS insulin lispro (HUMALOG) injection vial 0-16 Units, TID WC insulin lispro (HUMALOG) injection vial 0-4 Units, Nightly insulin lispro (HUMALOG) injection vial 5 Units, TID WC DULoxetine (CYMBALTA) extended release capsule 60 mg, Daily insulin glargine (LANTUS) injection vial 50 Units, BID fentaNYL (SUBLIMAZE) injection 50 mcg, Q1H PRN oxyCODONE (ROXICODONE) immediate release tablet 5 mg, Q4H PRN tigecycline (TYGACIL) 50 mg in sodium chloride 0.9 % 100 mL IVPB, Q12H sodium bicarbonate 75 mEq in sodium chloride 0.45 % 1,000 mL infusion, Continuous atorvastatin (LIPITOR) tablet 80 mg, Daily levothyroxine (SYNTHROID) tablet 200 mcg, Daily [Held by provider] hydroCHLOROthiazide (HYDRODIURIL) tablet 25 mg, Daily sodium chloride flush 0.9 % injection 5-40 mL, 2 times per day sodium chloride flush 0.9 % injection 5-40 mL, PRN 0.9 % sodium chloride infusion, PRN ondansetron (ZOFRAN-ODT) disintegrating tablet 4 mg, Q8H PRN Or ondansetron (ZOFRAN) injection 4 mg, Q6H PRN polyethylene glycol (GLYCOLAX) packet 17 g, Daily PRN acetaminophen (TYLENOL) tablet 650 mg, Q6H PRN Or acetaminophen (TYLENOL) suppository 650 mg, Q6H PRN [Held by provider] heparin (porcine) injection 5,000 Units, 3 times per day glucose chewable tablet 16 g, PRN dextrose bolus 10% 125 mL, PRN Or dextrose bolus 10% 250 mL, PRN glucagon (rDNA) injection 1 mg, PRN dextrose 10 % infusion, Continuous PRN gabapentin (NEURONTIN) capsule 600 mg, BID LABS CBC: Recent Labs 07/19/22 0621 07/20/22 0148 07/20/22 0426 07/20/22 1423 WBC 7.1 12.3* 10.2 6.6 RBC 3.50* 3.62* 3.74* 3.84* HGB 10.4* 10.6* 11.0* 11.0* HCT 30.2* 31.3* 32.4* 33.3* MCV 86.3 86.5 86.6 86.7 MCH 29.7 29.3 29.4 28.6 MCHC 34.4 33.9 34.0 33.0 RDW 13.6 13.5 13.6 13.8 PLT 410 280 252 See Reflexed IPF Result MPV 11.2 10.2 10.4 -- BMP: Recent Labs 07/20/22 1423 07/20/22 2230 07/21/22 0742 NA 128* 131* 134* K 5.1 3.8 3.8 CL 97* 100 101 CO2 18* 18* 20 BUN 32* 27* 28* CREATININE 1.62* 1.37* 1.28* GLUCOSE 360* 184* 224* CALCIUM 8.7 8.4* 8.1* ALEXANDRE: No results found for: ALEXANDRE SPEP: Lab Results Component Value Date/Time PROT 6.3 07/20/2022 02:51 PM ALBCAL 3.6 07/20/2022 02:51 PM ALBPCT 57 07/20/2022 02:51 PM LABALPH 0.2 07/20/2022 02:51 PM LABALPH 0.9 07/20/2022 02:51 PM A1PCT 4 07/20/2022 02:51 PM A2PCT 15 07/20/2022 02:51 PM LABBETA 0.9 07/20/2022 02:51 PM BETAPCT 14 07/20/2022 02:51 PM GAMGLOB 0.6 07/20/2022 02:51 PM GGPCT 10 07/20/2022 02:51 PM PATH PENDING 07/20/2022 03:05 PM UPEP: Lab Results Component Value Date/Time TPU 144 07/20/2022 03:05 PM TPU 144 07/20/2022 03:05 PM C3: Lab Results Component Value Date C3 209 (H) 07/20/2022 C4: Lab Results Component Value Date C4 41 (H) 07/20/2022 URINE SODIUM: Lab Results Component Value Date/Time BUD 26 07/20/2022 03:05 PM URINE CREATININE: Lab Results Component Value Date/Time LABCREA 76.5 07/20/2022 03:05 PM LABCREA 75.7 07/20/2022 03:05 PM URINE EOSINOPHILS: No components found for: EOSU URINE PROTEIN: Lab Results Component Value Date/Time TPU 144 07/20/2022 03:05 PM TPU 144 07/20/2022 03:05 PM URINALYSIS: U/A: Lab Results Component Value Date/Time NITRU NEGATIVE 07/20/2022 03:05 PM COLORU [place] 07/20/2022 03:05 PM PHUR 5.0 07/20/2022 03:05 PM WBCUA 10 TO 20 07/20/2022 03:05 PM RBCUA TOO NUMEROUS TO COUNT 07/20/2022 03:05 PM SPECGRAV 1.022 07/20/2022 03:05 PM LEUKOCYTESUR MODERATE 07/20/2022 03:05 PM UROBILINOGEN Normal 07/20/2022 03:05 PM BILIRUBINUR NEGATIVE 07/20/2022 03:05 PM GLUCOSEU 3+ 07/20/2022 03:05 PM KETUA NEGATIVE 07/20/2022 03:05 PM ANTIGBM:No results found for: GBMABIGG [facility]IOLOG[facility] Reviewed as available. ASSESSMENT 1. Acute kidney injury due to obstructive uropathy secondary to stone further complicated by superimposed infection. Now patient has PCN which is draining well. Renal functions are improving and creatinine is down to 1.2 mg/dL. 2. Pyelonephritis: Patient is on room antibiotic and all cultures are negative so far 3. History of recurrent nephrolithiasis 4. Metabolic acidosis and on bicarbonate drip 5. Hypertension blood pressure is under good control 6. History of coronary artery disease. PLAN 1. Increase IV fluid to 50 mill per hour 2. Repeat BMP this evening and call with results 3. We will follow with you. Please do not hesitate to call with questions. * Satish Hawkins, PT - 07/21/2022 1:36 PM EDT Physical Therapy Facility/Department: [address] [place] Physical Therapy Initial Assessment Name: Asa Thompson : 1970 Date of Service: 07/21/2022 Chief Complaint Patient presents with Flank Pain Discharge Recommendations: No therapy recommended at discharge PT Equipment Recommendations Equipment Needed: No Patient Diagnosis(es): The primary encounter diagnosis was Kidney stone. Diagnoses of Acute pyelonephritis, Left renal atrophy, and Staghorn renal calculus were also pertinent to this visit. Past Medical History: has a past medical history of Coronary artery disease, History of nephrolithiasis, History of recurrent UTIs, and Type 2 diabetes mellitus with hyperglycemia, without long-term current use of insulin (HCC). Past Surgical History: has a past surgical history that includes IR GUIDED NEPHROSTOMY CATH PLACEMENT LEFT (07/19/2022). Assessment Body Structures, Functions, Activity Limitations Requiring Skilled Therapeutic Intervention: Decreased functional mobility ;Decreased strength;Decreased endurance;Decreased balance Assessment: Pt with mobility deficits requiring SBA to ambulate 50 feet with no device this date with fair stability. Pt demonstrates mild balance, endurance, and strength deficits and would benefit from additional PT during acute care hospital stay. Pt would benefit from assistance with mobility upon discharge, pt reports her is available to provide 29/05 support. Therapy Prognosis: Good Decision Making: Low Complexity Requires PT Follow-Up: Yes Activity Tolerance Activity Tolerance: Patient tolerated treatment well Plan Plan Plan: (2-4x/week) Current Treatment Recommendations: Strengthening, Balance training, Functional mobility training, Transfer training, Gait training, Stair training, Patient/Caregiver education & training, Safety education & training, Home exercise program, Equipment evaluation, education, & procurement,Therapeutic activities, Endurance training Safety Devices Type of Devices: Gait belt, Call light within reach, Left in chair Restraints Restraints Initially in Place: No Restrictions Restrictions/Precautions Restrictions/Precautions: Up as Tolerated Required Braces or Orthoses?: No Position Activity Restriction Other position/activity restrictions: 07/19 L nephrostomy tube placement Subjective General Patient assessed for rehabilitation services?: Yes Response To Previous Treatment: Not applicable Family / Caregiver Present: Yes () Follows Commands: Within Functional Limits Subjective Subjective: Pt supine in bed and agreeable to therapy, RN agreeable to therapy. Pt denies pain at rest. Pt pleasant and cooperative throughout. Social/Functional History Social/Functional History Lives With: Spouse Type of Home: House Home Layout: One level Home Access: Stairs to enter with rails Entrance Stairs - Number of Steps: 3 Entrance Stairs - Rails: Left Bathroom Shower/Tub: Tub/Shower unit Bathroom Toilet: Standard Bathroom Equipment: (No additional bathroom equiptment) Home Equipment: (Does not use AD at baseline or own any) Has the patient had two or more falls in the past year or any fall with injury in the past year?: No ADL Assistance: Independent Homemaking Assistance: Independent Homemaking Responsibilities: Yes Ambulation Assistance: Independent Transfer Assistance: Independent Active Immigration Coordinator: Yes Mode of Transportation: [facility] Occupation: Unemployed Leisure & Hobbies: Everything -staying busy Additional Comments: 29/05 support if needed upon discharge by . Vision/Hearing Vision Vision: Impaired Vision Exceptions: Wears glasses at all times Hearing Hearing: Within functional limits Cognition Cognition Overall Cognitive Status: WFL Objective AROM RLE (degrees) RLE AROM: WFL AROM LLE (degrees) LLE AROM : WFL AROM RUE (degrees) RUE AROM : WFL AROM LUE (degrees) LUE AROM : WFL Strength RLE Strength RLE: WFL Comment: Grossly 4/5 Strength LLE Strength LLE: WFL Comment: Grossly 4/5 Strength RUE Comment: Co-eval with OT, see OT note for UE detail. Strength LUE Comment: Co-eval with OT, see OT note for UE detail. Balance Sitting: Intact (Sat EOB for ~10 minutes statically and dynamically for LB dressing and ROM/MMT. Completed all seated tasks independently with no LOB/unsteadiness observed.) Standing: Intact (Pt stood statically for ~4 minutes for ADLs and in prep for mobility.SBA for safety d/t first time up with OT. Pt reports feeling at baseline w/ no concerns.) Gait Overall Level of Assistance: Stand-by assistance (Completed mobility to/from bathroom and around hospital room with no LOB/unsteadiness. Limited by requiring to stay on monitor per RN. Attempted to use portable. SBA for safety d/t first time up with OT. Pt reports feeling at baseline w/ no concerns.) Bed mobility Supine to Sit: Supervision Sit to Supine: (pt retired up to a chair at the conclusion of today's session.) Scooting: Supervision Bed Mobility Comments: HOB elevated ~ 30 degrees, increased time/effort to perform. Transfers Sit to Stand: Stand by assistance Stand to sit: Stand by assistance Ambulation Surface: level tile Device: No Device Assistance: Stand by assistance Quality of Gait: fair stability, decreased gait speed, no LOB. Gait Deviations: Slow Mary Distance: 50 feet More Ambulation?: No Stairs/Curb Stairs?: No Balance Posture: Good Sitting - Static: Good Sitting - Dynamic: Good;- Standing - Static: Fair;+ Standing - Dynamic: Fair;+ Comments: standing balance assessed while using no device. AM-PAC Score AM-PAC Inpatient Mobility Raw Score : 19 (07/21/221334) AM-PAC Inpatient T-Scale Score : 45.44 (07/21/221334) Mobility Inpatient CMS 0-100% Score: 41.77 (07/21/221334) Mobility Inpatient CMS G-Code Modifier : CK (07/21/221334) Goals Short Term Goals Time Frame for Short term goals: 14 visits Short term goal 1: Pt will ambulate 300 feet with no device and supervision. Short term goal 2: Pt will negotiate 3 stairs with a left sided handrail and SBA to allow the pt toenter prior living arrangements. Short term goal 3: Pt will perform sit<>stand transfer with supervision. Short term goal 4: Pt will demonstrate good- standing balance to decrease fall risk. Additional Goals?: No Education Patient Education Education Given To: Patient Education Provided: Role of Therapy;Transfer Training;Plan of Care Education Method: Verbal Barriers to Learning: None Education Outcome: Verbalized understanding Therapy Time Individual Concurrent Group Co-treatment Time In 928 Time Out 957 Minutes 29 Timed Code Treatment Minutes: 8 Minutes Satish Hawkins PT * Latoya Chatterjee RN - 07/21/2022 12:40 PM EDT Karen CROSS with urology contacted. Patient's has questions and would like to speak with them. RN also informed of not voiding a lot, but has 900 ml out for nephrostomy. Bladder scan was done last not and was not retaining. No new orders at this time. Team will be by to talk with patient and family. * Luisa Oquendo, OT - 07/21/2022 12:07 PM EDT Occupational Therapy Facility/Department: [address] [facility] Therapy Initial Assessment Name: Asa Thompson : 1970 Date of Service: 07/21/2022 Discharge Recommendations: No therapy recommended at discharge. OT Equipment Recommendations Equipment Needed: No Patient Diagnosis(es): The primary encounter diagnosis was Kidney stone. Diagnoses of Acute pyelonephritis, Left renal atrophy, and Staghorn renal calculus were also pertinent to this visit. Past Medical History: has a past medical history of Coronary artery disease, History of nephrolithiasis, History of recurrent UTIs, and Type 2 diabetes mellitus with hyperglycemia, without long-term current use of insulin (HCC). Past Surgical History: has a past surgical history that includes IR GUIDED NEPHROSTOMY CATH PLACEMENT LEFT (07/19/2022). Assessment Assessment: Pt demonstrated functional transfers, functional mobility and functional standing activities with SBA for safety d/t first time up with OT. Pt completed LB dressing with Modified independence w/ increaesd time seated EOB unsupported. OT facilitated oral hygiene independently standing atsinkside with 0 UE support on sink for balance. Pt denies concerns with completing ADLs/IADLs indepnedently throughout stay and post discharge. Pt has 24/7 A from as needed upon discharge. Based on pt's performance completing the above functional activities and ADLs, pt is not currently expected to require skilled OT services during their acute hospitalization stay or post discharge. Educated to report to RN/MD if functional changes occur for reevaluation. Pt verbalized a good understanding. Prognosis: Good Decision Making: Low Complexity No Skilled OT: No OT goals identified REQUIRES OT FOLLOW-UP: Yes Activity Tolerance Activity Tolerance: Patient Tolerated treatment well Restrictions Restrictions/Precautions Restrictions/Precautions: Up as Tolerated Required Braces or Orthoses?: No Position Activity Restriction Other position/activity restrictions: 07/19 L nephrostomy tube placement Subjective General Patient assessed for rehabilitation services?: Yes Family / Caregiver Present: Yes () General Comment Comments: RN ok'd for OT/PT eval this AM. Pt agreeable to session, pleasent/cooperative throughout.Pt denies any pain throughout. Social/Functional History Social/Functional History Lives With: Spouse Type of Home: House Home Layout: One level Home Access: Stairs to enter with rails Entrance Stairs - Number of Steps: 3 Entrance Stairs - Rails: Left Bathroom Shower/Tub: Tub/Shower unit Bathroom Toilet: Standard Bathroom Equipment: (No additional bathroom equiptment) Home Equipment: (Does not use AD at baseline or own any) Has the patient had two or more falls in the past year or any fall with injury in the past year?: No ADL Assistance: Independent Homemaking Assistance: Independent Homemaking Responsibilities: Yes Ambulation Assistance: Independent Transfer Assistance: Independent Active Immigration Coordinator: Yes Mode of Transportation: [facility] Occupation: Unemployed Leisure & Hobbies: Everything -staying busy Additional Comments: 29/05 support if needed upon discharge by . Objective Safety Devices Type of Devices: Gait belt;Call light within reach;Left in chair Restraints Restraints Initially in Place: No Balance Sitting: Intact (Sat EOB for ~10 minutes statically and dynamically for LB dressing and ROM/MMT. Completed all seated tasks independently with no LOB/unsteadiness observed.) Standing: Intact (Pt stood statically for ~4 minutes for ADLs and in prep for mobility.SBA for safety d/t first time up with OT. Pt reports feeling at baseline w/ no concerns.) Gait Overall Level of Assistance: Stand-by assistance (Completed mobility to/from bathroom and around hospital room with no LOB/unsteadiness. Limited by requiring to stay on monitor per RN. Attempted to use portable. SBA for safety d/t first time up with OT. Pt reports feeling at baseline w/ no concerns.) AROM: Within functional limits Strength: Within functional limits Coordination: Within functional limits Tone: Normal Sensation: Intact (Denies any numbness/tingling) ADL Feeding: Independent Grooming: Independent Grooming Skilled Clinical Factors: IND completed oral hygiene standing sinkside independently with 0 UE support on sinkside for balance. UE Bathing: Modified independent ;Increased time to complete LE Bathing: Modified independent ;Increased time to complete UE Dressing: Independent LE Dressing: Modified independent ;Increased time to complete LE Dressing Skilled Clinical Factors: Pt utilized figure four tech to don B socks seated EOB with increased time. Toileting: Independent Additional Comments: Pt reports no concerns with ability to complete ADLs during acute stay and post discharge. Bed mobility Supine to Sit: Supervision (HOB elevated/increased effort) Sit to Supine: (Retired to bedside chair at conclusion of session) Scooting: Supervision (Scooting EOB to place feeet on ground for improved balance/stability) Transfers Sit to stand: Stand by assistance Stand to sit: Stand by assistance Transfer Comments: No AD, No LOB/unsteadiness, SBA for safety d/t first time up with OT Vision Vision: Impaired Vision Exceptions: Wears glasses at all times Hearing Hearing: Within functional limits Cognition Overall Cognitive Status: WFL Education Given To: Family;Patient Education Provided Comments: Pt educated on OT role, OT POC, activity promotion, line management/safety awareness, home setup/safety upon discharge regarding ADLs-good return Education Method: Demonstration;Verbal Barriers to Learning: None Education Outcome: Verbalized understanding;Demonstrated understanding LUE AROM (degrees) LUE AROM : WFL Left Hand AROM (degrees) Left Hand AROM: WFL RUE AROM (degrees) RUE AROM : WFL Right Hand AROM (degrees) Right Hand AROM: WFL AM-PAC Score [facility] Inpatient Daily Activity Raw Score: 24 (07/21/22 1208) [facility] Inpatient ADL T-Scale Score : 57.54 (07/21/22 1208) ADL Inpatient [facility] 0-100% Score: 0 (07/21/22 1208) ADL Inpatient [facility] G-Code Modifier : CH (07/21/22 1208) Therapy Time Individual Concurrent Group Co-treatment Time In 928 Time Out 58 Minutes 29 Timed Code Treatment Minutes: 9 Minutes Luisa Oquendo OTR/L * Urban Noriega MD - 07/21/2022 11:44 AM EDT Images from the original note were not included. [facility] - Progress Note Today's Date and Time: 07/21/2022, 11:44 AM Impression : S/p left percutaneous nephrostomy tube placement 07/19/2022 Calculous pyelonephritis Sepsis OMAR Anaphylaxis with penicillin Hypothyroidism Diabetes mellitus Hypertension History of coronary artery disease Anxiety and depression Neuropathic pain Recommendations: Tigecycline 100 mg IV x 1 and the 50 mg q 12 hr because of anaphylaxis with penicillins Completed Tobramycin 200 mg x 1 dose Blood and urine cultures: No growth Medical Decision Making/Summary/Discussion:07/21/2022 Patient with Lt staghorn calculus with left upper pole hydronephrosis and pyelitis s/p L nephrostomy tube placement 07/19/22 Appeared septic and had mental status changes upon presentation Has improved since then. Mentation back to normal as of 07-21-22 Blood and urine cultures: No growth Anaphylaxis with penicillins On Tigecycline pending further data Urology plans for renal scan as an outpatient prior to deciding on surgical management of stone. OMAR with minor improvement. Plan tigecycline for up to a week. Infection Control Recommendations [place] Precautions Antimicrobial Stewardship Recommendations Simplification of therapy PK dosing Restricted antimicrobial use Coordination of Outpatient Care: Estimated Length of IV antimicrobials:TBD Patient will need Midline Catheter Insertion: TBD Patient will need PICC line Insertion:BD Patient will need: Home IV , Infusion Center, SNF, LTAC: TBD Patient will need outpatient wound care: Chief complaint/reason for consultation: Obstructive UTI History of Present Illness: Asa Thompson is a 51 y.o.-year-old female who was initially admitted on 07/18/2022. Patient seen at the request of Dr. Cantrell. INITIAL HISTORY: Patient is a 51-year-old female who presents to [place] with a chief complaint of left flank pain that started at 4 AM on 07/18/2022. Patient states that the pain is intense and is radiating towards her left groin. Patient denies any fever, burning urination, urgency frequency, vomiting, loose stool, any shortness of breath or chest discomfort. Patient went to [place] and had a CT imaging done. 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 Urinalysis positive for leukocytes and nitrates and blood. White blood cell count 13.7 and creatinine of 1.45. Patient needed urology evaluation and nephrostomy tube placement . She was transferred to [place]. Urology was consulted. Urology plan for IR intervention. Patient was admitted to the floor for further management. Since her stay in the hospital, interventional radiology was consulted for left percutaneous nephrostomy tube placement. This was performed on 07/19/2022. On 07/20/2010 her creatinine had worsened and her urine was alexander in color. Patient was not oriented and not able to answer majority of questions. Patient's daughter and nurse were in the room to answer my questions. Patient's daughter states that she does not feel that she is oriented. Patient's daughter states that she feels cold and looks of clammy. She has noticed that her mother has been having chills and shaking. She denies any nausea or vomiting or diarrhea. Per RN, patient was having an extreme amount of pain as well as a low-grade fever. She gave her Tylenol to to help with pain levels as well as to control fever. Patient was not due for regular scheduled pain medication. Patient states that her pain is still a 10 out of 10 however rated a 15 out of 10 prior to Tylenol. CURRENT EVALUATION 07/21/2022 BP (!) 153/88 Pulse 96 Temp 98.6 F (37 C) (Oral) Resp 13 Ht 5' 5 (1.651 m) Wt 255 lb 11.7 oz (116 kg) SpO2 96% BMI 42.56 kg/m Afebrile VS stable Patient feels better Mentation back to normal No complaints No new issues per RN Blood and urine cultures: No growth Labs, X rays reviewed: 07/20/2022 BUN: 33-->28 Cr: 1.6-->1.28 Glucose: 427-->227 Calcium: 8.2-->8.1 Sodium: 127-->134 Chloride: 96 CO2: 17-->20 GFR: 32-->44 WBC: 10.2 Hb: 11.0 Plat: 252 CRP: Cultures: Urine: 07/18/2022: No growth 07/19/2022: Urinalysis: Turbid, glucose +1, urine Hgb large, leukocyte esterase large, proteins. Blood: 07/18/2022: No growth x 2 : No growth Sputum : Wound: MRSA Nares: Imagin07/20/2022 Chest x-ray Impression 1. Mild vascular congestion. 2. Minimal patchy opacities at the lung bases, possibly related to atelectasis. No dense airspace consolidation. Kidney flow and function - Needs to be performed Ultrasound of retroperitoneal Impression 1. Possible nephrostomy at the lower pole left kidney. Correlate with any recent instrumentation. 2. Equivocal dilatation of the upper pole left kidney. No overt hydronephrosis. 3. 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 RECOMMENDATIONS: Unavailable 10/18/2022 IR guided nephrostomy cath placement Impression Successful percutaneous left nephroureteral stent placement via lower pole, past a large staghorn calculus, with distal pigtail tip position in the urinary bladder, as above. Findings were discussed with KASH CLAY at 4:09 pm on 07/19/2022. Discussed with patient, RN, family. I have personally reviewed the past medical history, past surgical history, medications, social history, and family history, and I have updated the database accordingly. Past Medical History: Past Medical History: Diagnosis Date Coronary artery disease History of nephrolithiasis History of recurrent UTIs Type 2 diabetes mellitus with hyperglycemia, without long-term current use of insulin (HCC) Past Surgical History: Past Surgical History: Procedure Laterality Date IR NEPHROSTOMY PERCUTANEOUS LEFT 07/19/2022 IR NEPHROSTOMY PERCUTANEOUS LEFT 07/19/2022 Noman Mullen MD [facility] SPECIAL PROCEDURES Medications: insulin lispro 0-16 Units SubCUTAneous TID WC insulin lispro 0-4 Units SubCUTAneous Nightly insulin lispro 5 Units SubCUTAneous TID WC DULoxetine 60 mg Oral Daily insulin glargine 50 Units SubCUTAneous BID tigecycline (TYGACIL) IVPB 50 mg IntraVENous Q12H atorvastatin 80 mg Oral Daily levothyroxine 200 mcg Oral Daily [Held by provider] hydroCHLOROthiazide 25 mg Oral Daily sodium chloride flush 5-40 mL IntraVENous 2 times per day [Held by provider] heparin (porcine) 5,000 Units SubCUTAneous 3 times per day gabapentin 600 mg Oral BID Social History: Social History Socioeconomic History Marital status: Spouse name: Not on file Number of children: Not on file Years of education: Not on file Highest education level: Not on file Occupational History Not on file Tobacco Use Smoking status: Not on file Smokeless tobacco: Not on file Substance and Sexual Activity Alcohol use: Not on file Drug use: Not on file Sexual activity: Not on file Other Topics Concern Not on file Social History Narrative Not on file Social Determinants of Health Financial Resource Strain: Not on file Food Insecurity: Not on file Transportation Needs: Not on file Physical Activity: Not on file Stress: Not on file Social Connections: Not on file Intimate Partner Violence: Not on file Housing Stability: Not on file Family History: History reviewed. No pertinent family history. Allergies: Penicillins, Dilaudid [hydromorphone], and Morphine Review of Systems: Constitutional: No fevers or chills. No systemic complaints Head: No headaches Eyes: No double vision or blurry vision. No conjunctival inflammation. ENT: No sore throat or runny nose.. No hearing loss, tinnitus or vertigo. Cardiovascular: No chest pain or palpitations.No shortness of breath. No YE Lung: No shortness of breath or cough. No sputum production Abdomen: No nausea, vomiting, diarrhea, or abdominal pain.. No cramps. Genitourinary: Moderate left flank pain at incisional site nephrostomy tube in place with alexander urine Musculoskeletal: No muscle aches or pains. No joint effusions, swelling or deformities Hematologic: No bleeding or bruising. Neurologic: No headache, weakness, numbness, or tingling. Integument: No rash, no ulcers. Psychiatric: No depression. Endocrine: No polyuria, no polydipsia, no polyphagia. Physical Examination : Patient Vitals for the past 8 hrs: BP Temp Temp src Pulse Resp SpO2 07/21/22 1109 (!) 153/88 98.6 F (37 C) Oral 96 13 96 % 07/21/22 1056 -- -- -- -- 12 -- 07/21/22 0842 -- -- -- -- 14 -- 07/21/22 0815 (!) 144/59 97.2 F (36.2 C) Oral 92 -- 97 % General Appearance: Awake, alert, and in no apparent distress Head: Normocephalic, no trauma Eyes: Pupils equal, round, reactive to light and accommodation; extraocular movements intact; sclera anicteric; conjunctivae pink. No embolic phenomena. ENT: Oropharynx clear, without erythema, exudate, or thrush. No tenderness of sinuses. Mouth/throat: mucosa pink and moist. No lesions. Dentition in good repair. Neck:Supple, without lymphadenopathy. Thyroid normal, No bruits. Pulmonary/Chest: Clear to auscultation, without wheezes, rales, or rhonchi. No dullness to percussion. Cardiovascular: Regular rate and rhythm without murmurs, rubs, or gallops. Abdomen: Moderate left flank pain at incisional site nephrostomy tube in place with alexander urine All four Extremities: No cyanosis, clubbing, edema, or effusions. Neurologic: No gross sensory or motor deficits. Skin: Warm and dry with good turgor.No signs of peripheral arterial or venous insufficiency. No ulcerations. No open wounds. Medical Decision Making -Laboratory: I have independently reviewed/ordered the following labs: CBC with Differential: Recent Labs 07/20/22 0426 07/20/22 1423 WBC 10.2 6.6 HGB 11.0* 11.0* HCT 32.4* 33.3* PLT 252 See Reflexed IPF Result LYMPHOPCT 3* 7* MONOPCT 4 5 BMP: Recent Labs 07/20/22 2230 07/21/22 0742 NA 131* 134* K 3.8 3.8 CL 100 101 CO2 18* 20 BUN 27* 28* CREATININE 1.37* 1.28* Hepatic Function Panel: Recent Labs 07/20/22 1451 PROT 6.3* No results for input(s): RPR in the last 72 hours. No results for input(s): HIV in the last 72 hours. No results for input(s): BC in the last 72 hours. Lab Results Component Value Date/Time RBC 3.84 07/20/2022 02:23 PM WBC 6.6 07/20/2022 02:23 PM TURBIDITY Cloudy 07/20/2022 03:05 PM Lab Results Component Value Date/Time CREATININE 1.28 07/21/2022 07:42 AM GLUCOSE 224 07/21/2022 07:42 AM Medical Decision Making-Imagin07/20/2022 Narrative EXAMINATION: ONE X-RAY VIEW OF THE CHEST 07/20/2022 6:31 am COMPARISON: None. HISTORY: ORDERING SYSTEM PROVIDED HISTORY: consolidation TECHNOLOGIST PROVIDED HISTORY: Consolidation FINDINGS: Heart size is mildly prominent, and there is mild vascular congestion. There are minimal patchy opacities at the lung bases, which may be related to atelectasis. No dense airspace consolidation. No pneumothorax or pleural effusion. Impression 1. Mild vascular congestion. 2. Minimal patchy opacities at the lung bases, possibly related to atelectasis. No dense airspace consolidation. Narrative EXAMINATION: ULTRASOUND OF THE KIDNEYS 07/20/2022 9:31 am COMPARISON: 07/18/2022, CT renal stone protocol HISTORY: ORDERING SYSTEM PROVIDED HISTORY: OMAR TECHNOLOGIST PROVIDED HISTORY: Bilateral Renal Ultrasound OMAR 51-year-old female with acute kidney injury FINDINGS: Right kidney measures 12.9 x 8.1 x 7.4 cm. Right renal cortical thickness measures 1.4 cm. 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 Left kidney measures 10.8 x 5.9 x 5.3 cm. Left renal cortical thickness measures 1.2 cm. Equivocal dilatation of the upper pole left kidney. No overt hydronephrosis or perinephric fluid. Gross preservation of the bilateral corticomedullary differentiation. Possible nephrostomy at the lower pole left kidney. Impression 1. Possible nephrostomy at the lower pole left kidney. Correlate with any recent instrumentation. 2. Equivocal dilatation of the upper pole left kidney. No overt hydronephrosis. 3. 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 RECOMMENDATIONS: 07/19/2022 Narrative PROCEDURE: PERCUTANEOUS ANTEGRADE PYELOGRAM LEFT PERCUTANEOUS NEPHROURETERAL STENT PLACEMENT ULTRASOUND AND FLUOROSCOPY GUIDANCE MODERATE CONSCIOUS SEDATION 07/19/2022 HISTORY: ORDERING SYSTEM PROVIDED HISTORY: staghorn TECHNOLOGIST PROVIDED HISTORY: staghorn Is the patient ?->No SEDATION: Versed 0.5 mg IV, fentanyl 125 mcg IV were administered intravenously under my direct supervision; hemodynamic monitoring was provided by registered RN during the entire procedure which lasted approximately 1 hour. CONTRAST: Isovue 370-10 mL FLUOROSCOPY DOSE AND TYPE OR TIME AND EXPOSURES: Fluoroscopy time-9.4 minutes D [id number] cGy cm squared. TECHNIQUE Informed consent was obtained following detailed description of the procedure including risks, benefits, and alternatives. [place] protocol was followed. The patient's flank was prepped and draped in sterile fashion and local anesthesia was achieved with lidocaine. An Accustick needle was advanced into a posterior mid pole calyx using ultrasound and fluoroscopy guidance and a limited percutaneous antegrade pyelogram was performed. Subsequently, a 2nd 21 gauge needle was used to access a lower pole calyx, a 2nd 3 in 1 transition set and 0.018 inch guidewire was used to insert a 0.035 glidewire which was manipulated into the urinary bladder using a 4 Niuean Kumpe the catheter; the Glidewire was exchanged for a 0.035 inch Amplatz wire, the transition set and Kumpe the catheter removed, and an 8 FR percutaneous nephroureteral stent was inserted after the tract was dilated. The proximal pigtail was formed with some difficulty in the renal pelvis due to staghorn calculus; the distal pigtail was partially formed but in the urinary bladder. Excellent urine output was demonstrated. The catheter was sutured to the skin and the patient tolerated the procedure well. FINDINGS: Initial percutaneous antegrade pyelogram demonstrates hydronephrosis with a large staghorn calculus. Subsequent images show puncture of the lower pole calyx, 4 Niuean Kumpe the catheter manipulation and glidewire extension into the urinary bladder. Subsequent images show the nephroureteral stent in satisfactory position. Impression Successful percutaneous left nephroureteral stent placement via lower pole, past a large staghorn calculus, with distal pigtail tip position in the urinary bladder, as above. Findings were discussed with KASH CLAY at 4:09 pm on 07/19/2022. Medical Decision [id number]: Medical Decision Making-Other: Note: Labs, medications, radiologic studies were reviewed with personal review of films Large amounts of data were reviewed Discussed with nursing Staff, conference planner Infection Control and Prevention measures reviewed All prior entries were reviewed Administer medications as ordered Prognosis: Good Discharge planning reviewed Follow up as outpatient. Thank you for allowing us to participate in the care of this patient. Please call with questions. Urban Noriega MD * Phillip Garrett MD - 07/21/2022 8:22 AM EDT Images from the original note were not included. [facility] Internal Medicine Teaching Residency Program Inpatient Daily Progress Note Patient: Asa Thompson Date of : 1970 Acct: [id number] Room: [address] [place] [address] Admit date: 07/18/2022 Today's date: 07/21/22 Number of days in the hospital: 3 SUBJECTIVE Admitting Diagnosis: Calculous pyelonephritis CC: Left flank pain Pt examined at bedside. Chart & results reviewed. No acute event overnight Patient remained afebrile hemodynamically stable Pain better controlled with pain meds IR guided left percutaneous nephrostomy tube placement Creatinine trending down Lab reviewed ROS: Constitutional: negative for chills, fevers, sweats Respiratory: negative for cough, dyspnea on exertion, hemoptysis, shortness of breath, wheezing Cardiovascular: negative for chest pain, chest pressure/discomfort, lower extremity edema, palpitations Gastrointestinal: negative for abdominal pain, constipation, diarrhea, nausea, vomiting Neurological: negative for dizziness, headache BRIEF HISTORY The patient is a pleasant 51 y.o. female with past medical history of diabetes, 2 occurrence of renal stone presents with a chief complaint of left flank pain that started 4 AM in the morning today.pain was radiating towards left groin, no fever, burning micturition, urgency or frequency, vomiting,loose stool, shortness of breath or chest discomfort. Patient went to [place] and CT imaging showed partially obstructing large staghorn calcification in left renal pelvis and perinephric edema-small amount of air and gas concerning for pyelonephritis.UA positive for leukocytes and nitrites with blood.WBC count 13.7 and creatinine of 1.45. Patient needed urology evaluation and nephrostomy tube placement so transferred to the [facility]. Urology consulted plan for IR tomorrow. patient admittedto the floor for further management. OBJECTIVE Vital Signs: BP 132/67 Pulse 92 Temp 98.2 F (36.8 C) (Oral) Resp 15 Ht 5' 5 (1.651 m) Wt 255 lb 11.7 oz (116 kg) SpO2 96% BMI 42.56 kg/m Temp (24hrs), Av.6 F (38.1 C), Min:98.2 F (36.8 C), Max:103 F (39.4 C) In: 2421.9 Out: 3220 [Urine:3220] Physical Exam: PHYSICAL EXAMINATION: Constitutional: This is a well developed, well nourished, 51 y.o. year old female who is alert, oriented, cooperative and in no apparent distress. Head:normocephalic and atraumatic. EENT: PERRLA. No conjunctival injections. Septum was midline, mucosa was without erythema, exudatesor cobblestoning. No thrush was noted. Neck: Supple without thyromegaly. No elevated JVP. Trachea was midline. Respiratory: Chest was symmetrical without dullness to percussion. Breath sounds bilaterally were clear to auscultation. There were no wheezes, rhonchi or rales. There is no intercostal retraction oruse of accessory muscles. No egophony noted. Cardiovascular: Regular without murmur, clicks, gallops or rubs. Abdomen: Slightly rounded and soft without organomegaly. No rebound, rigidity or guarding was appreciated. Lymphatic: No lymphadenopathy. Musculoskeletal: Normal curvature of the spine. No gross muscle weakness. Extremities: No lower extremity edema, ulcerations, tenderness, varicosities or erythema. Muscle size, tone and strength are normal. No involuntary movements are noted. Skin: Warm and dry. Good color, turgor and pigmentation. No lesions or scars. No cyanosis or clubbing Neurological/Psychiatric: The patient's general behavior, level of consciousness, thought content and emotional status is normal. Medications: Scheduled Medications: insulin lispro 0-16 Units SubCUTAneous TID WC insulin lispro 0-4 Units SubCUTAneous Nightly insulin lispro 5 Units SubCUTAneous TID DULoxetine 60 mg Oral Daily insulin glargine 50 Units SubCUTAneous BID tigecycline (TYGACIL) IVPB 50 mg IntraVENous Q12H atorvastatin 80 mg Oral Daily levothyroxine 200 mcg Oral Daily [Held by provider] hydroCHLOROthiazide 25 mg Oral Daily sodium chloride flush 5-40 mL IntraVENous 2 times per day [Held by provider] heparin (porcine) 5,000 Units SubCUTAneous 3 times per day gabapentin 600 mg Oral BID Continuous Infusions: sodium bicarbonate infusion 75 mL/hr at 07/21/22 0609 sodium chloride Stopped (07/21/22 0533) dextrose PRN MedicationsfentanNYL, 50 mcg, Q1H PRN oxyCODONE, 5 mg, Q4H PRN sodium chloride flush, 5-40 mL, PRN sodium chloride, , PRN ondansetron, 4 mg, Q8H PRN Or ondansetron, 4 mg, Q6H PRN polyethylene glycol, 17 g, Daily PRN acetaminophen, 650 mg, Q6H PRN Or acetaminophen, 650 mg, Q6H PRN glucose, 4 tablet, PRN dextrose bolus, 125 mL, PRN Or dextrose bolus, 250 mL, PRN glucagon (rDNA), 1 mg, PRN dextrose, , Continuous PRN Diagnostic Labs: CBC: Recent Labs 07/20/22 0148 07/20/22 0426 07/20/22 1423 WBC 12.3* 10.2 6.6 RBC 3.62* 3.74* 3.84* HGB 10.6* 11.0* 11.0* HCT 31.3* 32.4* 33.3* MCV 86.5 86.6 86.7 RDW 13.5 13.6 13.8 PLT 280 252 See Reflexed IPF Result BMP: Recent Labs 07/20/22 1423 07/20/22 2230 07/21/22 0742 NA 128* 131* 134* K 5.1 3.8 3.8 CL 97* 100 101 CO2 18* 18* 20 BUN 32* 27* 28* CREATININE 1.62* 1.37* 1.28* BNP: No results for input(s): BNP in the last 72 hours. PT/INR: Recent Labs 07/18/22 1629 07/19/22 0753 PROTIME 10.0 9.8 INR 0.9 0.9 APTT: Recent Labs 07/18/22 1629 APTT 22.8 CARDIAC ENZYMES: No results for input(s): CKMB, CKMBINDEX, TROPONINI in the last 72 hours. Invalid input(s): CKTOTAL;3 FASTING LIPID PANEL:No results found for: CHOL, HDL, TRIG LIVER PROFILE: No results for input(s): AST, ALT, ALB, BILIDIR, BILITOT, ALKPHOS in the last 72 hours. MICROBIOLOGY: Lab Results Component Value Date/Time CULTURE NO GROWTH 12 HOURS 07/20/2022 03:59 PM Imaging: No results found. ASSESSMENT & PLAN IMPRESSION This is a 51 y.o. female who presented with left flank pain and found to have staghorn calculus left kidney. Patient admitted to inpatient status for nephrostomy tube placement Principal Problem: Calculous pyelonephritis Plan: Urology on board- Left nephrostomy tube placement 07/19 Patient is started on tigecycline and tobramycin by ID OMAR- continue IV fluids Will monitor with BMP daily Hypothyroidism Continue home levothyroxine 200 mcg Diabetes mellitus-on Lantus 35 BD and high dose scaling At home takes Humulin 70/30-80 units in the morning and 50 units in the night and metformin 500 mg twice daily Hypertension At home on hydrochlorothiazide 25 mg and losartan 100 mg, held History of CAD-on aspirin 81 mg and atorvastatin 80 mg Anxiety and depression-takes duloxetine 60 mg at home- resumed Neuropathic pain-takes 1200 mg gabapentin twice a day at home DVT ppx: Heparin GI ppx: Not indicated at this time PT/OT/SW-consulted we will follow-up Discharge Planning: grounds manager consulted Phillip Garrett MD Internal Medicine Resident, PGY-1 [facility]; [place], [place] 07/21/2022, 8:22 AM Associated attestation - Livia Cantrell MD - 07/21/2022 8:43 PM EDT Attending Physician Statement I have discussed the case of Asa Thompson, including pertinent history and exam findings with the resident/fellow/medical student/RAND TACKER/PA. I have seen and examined the patient and the trevizo elementsof the encounter have been performed by me. I agree with the assessment, plan and orders as documented by the resident/fellow/medical student/RAND TACKER/PA With changes made to the note as needed. Pt was seen during rounds. Review of Systems: In addition to the pertinent positives and negatives as stated within HPI and the review of systemsas documented in their notes, all other systems were reviewed when able to and are reported negative. Mentation is back to her normal self No fever today Patient received tobramycin per ID yesterday on top of the meropenem Not requiring any oxygen today No more hyponatremia Improving renal function blood sugars are acceptable with increasing insulin Renal ultrasound yesterday without significant hydronephrosis Multiple blood cultures since admission without any growth Urine culture also without any growth Chest x-ray yesterday with bibasilar atelectasis Increase activity Patient and family were encouraged to have their questions to urology answered by urology Patient's nurse to help with hooking up the family with urology Livia Cantrell MD 07/21/2022 8:42 PM * TERRY BERGMAN - 07/21/2022 2:55 AM EDT Notified internal medicine resident of patients lactic acid level increasing from 2 to 2.4, no orders written. * TERRY BERGMAN - 07/21/2022 1:50 AM EDT Notified internal medicine resident of patients low urine output and bladder scan showing only 18 ml in patients bladder, no orders written. * TERRY BERGMAN - 07/20/2022 11:30 PM EDT Notified internal medicine resident of patient having large amount of emesis and fever. * Binu Ashley - 07/20/2022 11:26 PM EDT SPIRITUAL CARE DEPARTMENT - [facility] [place] Shift date: 07/20/22 Shift day: Monday Shift # 2 Room # 0541/0541-01 Name: Asa Thompson Zoroastrian: Place of scientologist: Referral: Routine Visit Admit Date & Time: 07/18/2022 3:19 PM Assessment: Asa Thompson is a 51 y.o. female Intervention: Robotic Weld Technician introduced self and title as cobol developer. Patient did not appear to mind cobol developer presence. Robotic Weld Technician offered space for patient to express feelings, needs, and concerns and provided a ministry presence. Patient appeared to be resting and coping. Outcome: While gonzález/spirituality were not discussed, patient appeared receptive to cobol developer presence.3 Plan: Chaplains will remain available to offer spiritual and emotional support as needed. . Spiritual Care Department [facility] [phone] * TERRY BERGMAN - 07/20/2022 9:30 PM EDT Orders received for patients high BP * TERRY BERGMAN - 07/20/2022 9:08 PM EDT Notified associate professor of economics resident for internal medicine of patients current vital signs, sepsis alert BPA, neuro status and labs. * Ligia Mattson RN - 07/20/2022 4:00 PM EDT Patient complain of 10 out of 10 pain despite PRN pain meds given see MAR. Pt temp trending up despite PRN tylenol, cold was rags and ice packs see MAR Pt became oriented to person but disoriented to time and situation MD notified. Pt transferred to for closer monitoring. Ligia Mattson RN * Keo Guevara MD - 07/20/2022 8:06 AM EDT Images from the original note were not included. [facility] Internal Medicine Teaching Residency Program Inpatient Daily Progress Note Patient: Asa Thompson Date of : 1970 Acct: [id number] Room: [address] [place] [address]- Admit date: 07/18/2022 Today's date: 07/20/22 Number of days in the hospital: 2 SUBJECTIVE Admitting Diagnosis: Calculous pyelonephritis CC: Left flank pain Pt examined at bedside. Chart & results reviewed. No acute event overnight Patient remained afebrile hemodynamically stable Pain better controlled with pain meds IR guided left percutaneous nephrostomy tube placement yesterday evening-output 500 so far WBC-12.3-7.1-10.2 Creatinine 1.65-1.71-2.11 [id number]-corrected sodium 133 Lactic acid-3.8 Glucose-416 ROS: Constitutional: negative for chills, fevers, sweats Respiratory: negative for cough, dyspnea on exertion, hemoptysis, shortness of breath, wheezing Cardiovascular: negative for chest pain, chest pressure/discomfort, lower extremity edema, palpitations Gastrointestinal: negative for abdominal pain, constipation, diarrhea, nausea, vomiting Neurological: negative for dizziness, headache BRIEF HISTORY The patient is a pleasant 51 y.o. female with past medical history of diabetes, 2 occurrence of renal stone presents with a chief complaint of left flank pain that started 4 AM in the morning today.pain was radiating towards left groin, no fever, burning micturition, urgency or frequency, vomiting,loose stool, shortness of breath or chest discomfort. Patient went to [place] and CT imaging showed partially obstructing large staghorn calcification in left renal pelvis and perinephric edema-small amount of air and gas concerning for pyelonephritis.UA positive for leukocytes and nitrites with blood.WBC count 13.7 and creatinine of 1.45. Patient needed urology evaluation and nephrostomy tube placement so transferred to the [facility]. Urology consulted plan for IR tomorrow. patient admittedto the floor for further management. OBJECTIVE Vital Signs: BP 121/66 Pulse (!) 104 Temp 98.8 F (37.1 C) (Oral) Resp 18 Ht 5' 5 (1.651 m) Wt 255 lb 11.7 oz (116 kg) SpO2 95% BMI 42.56 kg/m Temp (24hrs), Av.2 F (36.8 C), Min:97.5 F (36.4 C), Max:99.9 F (37.7 C) In: 1695.6 Out: 1655 [Urine:1655] Physical Exam: PHYSICAL EXAMINATION: Constitutional: This is a well developed, well nourished, 51 y.o. year old female who is alert, oriented, cooperative and in no apparent distress. Head:normocephalic and atraumatic. EENT: PERRLA. No conjunctival injections. Septum was midline, mucosa was without erythema, exudatesor cobblestoning. No thrush was noted. Neck: Supple without thyromegaly. No elevated JVP. Trachea was midline. Respiratory: Chest was symmetrical without dullness to percussion. Breath sounds bilaterally were clear to auscultation. There were no wheezes, rhonchi or rales. There is no intercostal retraction oruse of accessory muscles. No egophony noted. Cardiovascular: Regular without murmur, clicks, gallops or rubs. Abdomen: Slightly rounded and soft without organomegaly. No rebound, rigidity or guarding was appreciated. Lymphatic: No lymphadenopathy. Musculoskeletal: Normal curvature of the spine. No gross muscle weakness. Extremities: No lower extremity edema, ulcerations, tenderness, varicosities or erythema. Muscle size, tone and strength are normal. No involuntary movements are noted. Skin: Warm and dry. Good color, turgor and pigmentation. No lesions or scars. No cyanosis or clubbing Neurological/Psychiatric: The patient's general behavior, level of consciousness, thought content and emotional status is normal. Medications: Scheduled Medications: atorvastatin 80 mg Oral Daily levothyroxine 200 mcg Oral Daily [Held by provider] hydroCHLOROthiazide 25 mg Oral Daily insulin glargine 25 Units SubCUTAneous BID sodium chloride flush 5-40 mL IntraVENous 2 times per day [Held by provider] heparin (porcine) 5,000 Units SubCUTAneous 3 times per day insulin lispro 0-8 Units SubCUTAneous TID WC insulin lispro 0-4 Units SubCUTAneous Nightly ciprofloxacin 400 mg IntraVENous Q12H gabapentin 600 mg Oral BID Continuous Infusions: sodium chloride Stopped (07/19/22 2328) dextrose sodium chloride 100 mL/hr at 07/20/22 0751 PRN Medicationssodium chloride flush, 5-40 mL, PRN sodium chloride, , PRN ondansetron, 4 mg, Q8H PRN Or ondansetron, 4 mg, Q6H PRN polyethylene glycol, 17 g, Daily PRN acetaminophen, 650 mg, Q6H PRN Or acetaminophen, 650 mg, Q6H PRN glucose, 4 tablet, PRN dextrose bolus, 125 mL, PRN Or dextrose bolus, 250 mL, PRN glucagon (rDNA), 1 mg, PRN dextrose, , Continuous PRN fentanNYL, 50 mcg, Q4H PRN oxyCODONE-acetaminophen, 2 tablet, Q4H PRN Diagnostic Labs: CBC: Recent Labs 07/19/22 0607/20/2214707/20/22425 WBC 7.1 12.3* 10.2 RBC 3.50* 3.62* 3.74* HGB 10.4* 10.6* 11.0* HCT 30.2* 31.3* 32.4* MCV 86.3 86.5 86.6 RDW 13.6 13.5 13.6 PLT 410 280 252 BMP: Recent Labs 07/19/2262007/20/2214707/20/22425 NA 131* 128* 128* K 4.0 5.2 5.0 CL 98 95* 95* CO2 19* 17* 18* BUN 38* 37* 38* CREATININE 1.71* 2.35* 2.11* BNP: No results for input(s): BNP in the last 72 hours. PT/INR: Recent Labs 07/18/22162807/19/22752 PROTIME 10.0 9.8 INR 0.9 0.9 APTT: Recent Labs 07/18/221628 APTT 22.8 CARDIAC ENZYMES: No results for input(s): CKMB, CKMBINDEX, TROPONINI in the last 72 hours. Invalid input(s): CKTOTAL;3 FASTING LIPID PANEL:No results found for: CHOL, HDL, TRIG LIVER PROFILE: No results for input(s): AST, ALT, ALB, BILIDIR, BILITOT, ALKPHOS in the last 72 hours. MICROBIOLOGY: Lab Results Component Value Date/Time CULTURE NO GROWTH <24 HRS 07/20/2022 04:26 AM CULTURE NO GROWTH <24 HRS 07/20/2022 04:26 AM Imaging: No results found. ASSESSMENT & PLAN IMPRESSION This is a 51 y.o. female who presented with left flank pain and found to have staghorn calculus left kidney. Patient admitted to inpatient status for nephrostomy tube placement Principal Problem: Calculous pyelonephritis Plan: Urology on board- Left nephrostomy tube placement 07/19 UA-RBCs and WBCs, pending culture Started on Rocephin OMAR- continue IV fluids Will monitor with BMP daily Hypothyroidism Continue home levothyroxine 200 mcg Diabetes mellitus-on Lantus 35 BD and high dose scaling At home takes Humulin 70/30-80 units in the morning and 50 units in the night and metformin 500 mg twice daily Hypertension At home on hydrochlorothiazide 25 mg and losartan 100 mg-we will resume home meds History of CAD-on aspirin 81 mg and atorvastatin 80 mg Anxiety and depression-takes duloxetine 60 mg at home- resumed Neuropathic pain-takes 1200 mg gabapentin twice a day at home DVT ppx: Heparin GI ppx: Not indicated at this time PT/OT/SW-consulted we will follow-up Discharge Planning: grounds manager consulted Keo Guevara MD Internal Medicine Resident, PGY-1 [facility]; [place], [place] 07/20/2022, 8:06 AM Associated attestation - Livia Cantrell MD - 07/20/2022 7:52 PM EDT Attending Physician Statement I have discussed the case of Asa Thompson, including pertinent history and exam findings with the resident/fellow/medical student/RAND TACKER/PA. I have seen and examined the patient and the trevizo elementsof the encounter have been performed by me. I agree with the assessment, plan and orders as documented by the resident/fellow/medical student/RAND TACKER/PA With changes made to the note as needed. Pt was seen during rounds. Review of Systems: In addition to the pertinent positives and negatives as stated within HPI and the review of systemsas documented in their notes, all other systems were reviewed when able to and are reported negative. Patient with fever Patient received fentanyl about 45 minutes before my visit Patient apparently was having significant pain Increase the frequency of fentanyl Also transfer the patient to stepdown ICU to observe the patient closely because of the need for pain medications and her body habitus which would predispose her to obese hypoventilation syndrome Venous gas was obtained and there was no CO2 retention The cause of the patient's acute toxic metabolic encephalopathy could be sepsis due to UTI along with fentanyl usage Blood sugars are more than 200, adjust insulin Anion gap without much increase Has hyponatremia, continue to monitor Improving renal function No leukocytosis Anemia stable Ultrasound of the kidney without any hydronephrosis Family was at the bedside and was updated Livia Cantrell MD 07/20/2022 7:50 PM * Christi Chance, - 07/20/2022 7:25 AM EDT Images from the original note were not included. Ke Bonilla, Jt, Charlie, Orlin, Priya Brambila Jr Urology Progress Note Subjective: Nothing acute overnight Afebrile, VSS Pain well controlled No nausea or vomiting Cr worsened 2.11 (1.71) No leukocytosis L neph tube 500cc since placement alexander urine Voiding 1.15L/24h per urethra without issues Patient Vitals for the past 24 hrs: BP Temp Temp src Pulse Resp SpO2 07/20/22 0511 (!) 143/73 99.9 F (37.7 C) Oral (!) 108 16 95 % 07/20/22 0453 -- -- -- -- 16 -- 07/20/22 0309 (!) 156/83 98.4 F (36.9 C) Oral (!) 110 14 97 % 07/19/226 117/66 98.2 F (36.8 C) Oral (!) 112 14 95 % 07/19/22 2145 115/76 98.1 F (36.7 C) Oral (!) 122 12 93 % 07/19/222136 -- -- -- -- 16 -- 07/19/222106 -- -- -- -- 12 -- 07/19/22 1935 117/72 98.6 F (37 C) Oral (!) 122 14 92 % 07/19/22 1922 -- -- -- -- 14 -- 07/19/22 1837 126/66 97.6 F (36.4 C) -- (!) 124 14 97 % 07/19/22 1643 (!) 181/78 97.5 F (36.4 C) -- (!) 118 20 -- 07/19/22 1615 (!) 192/78 97.5 F (36.4 C) -- (!) 120 20 96 % 07/19/22 1540 (!) 133/117 -- -- 98 12 92 % 07/19/22 1535 (!) 133/117 -- -- 99 11 92 % 07/19/22 1530 (!) 140/85 -- -- 98 12 92 % 07/19/22 1525 (!) 149/122 -- -- 92 12 92 % 07/19/22 1520 (!) 134/90 -- -- 93 (!) 9 93 % 07/19/22 1515 135/88 -- -- 97 11 93 % 07/19/22 1510 (!) 107/92 -- -- 94 10 93 % 07/19/22 1505 115/87 -- -- 90 (!) 9 93 % 07/19/22 1500 138/80 -- -- 97 18 93 % 07/19/22 1455 (!) 141/72 -- -- 85 10 94 % 07/19/22 1450 125/82 -- -- 86 13 95 % 07/19/22 1152 118/61 97.7 F (36.5 C) Oral 86 -- 95 % 07/19/22 0733 118/68 97.5 F (36.4 C) Oral 87 15 94 % Intake/Output Summary (Last 24 hours) at 07/20/2022 0725 Last data filed at 07/20/2022 0630 Gross per 24 hour Intake 1695.64 ml Output 1655 ml Net 40.64 ml Recent Labs 07/19/22 0621 07/20/22 0148 07/20/22 0426 WBC 7.1 12.3* 10.2 HGB 10.4* 10.6* 11.0* HCT 30.2* 31.3* 32.4* MCV 86.3 86.5 86.6 PLT 410 280 252 Recent Labs 07/19/22 0621 07/20/22 0148 07/20/22 0426 NA 131* 128* 128* K 4.0 5.2 5.0 CL 98 95* 95* CO2 19* 17* 18* BUN 38* 37* 38* CREATININE 1.71* 2.35* 2.11* Recent Labs 07/19/22 0524 COLORU Yellow PHUR 5.0 WBCUA TOO NUMEROUS TO COUNT RBCUA 10 TO 20 SPECGRAV 1.017 LEUKOCYTESUR LARGE* UROBILINOGEN Normal BILIRUBINUR NEGATIVE Additional Lab/culture results: Ucx and blood cultures pending Physical Exam: General: NAD HEENT: normocephalic, atraumatic Cardiovascular: Acyanotic, pulses palpable Respiratory: nonlabored breathing Abdomen: soft, nontender, nondistended : no SP tenderness, moderate left flank pain at incisional site - nephrostomy tube in place with alexander urine Skin: warm and dry Extremities: no peripheral edema Psych: normal mood and menation Interval Imaging Findings: none Impression: 51F with left complete staghorn stone with left upper pole hydronephrosis and pyelitis s/p L nephrostomy tube placement 07/19/22 issues: Left flank pain Left complete staghorn stone Left upper pole hydronephrosis s/p L neph tube 07/19/22 Left pyelitis Left atrophic kidney History of urolithiasis s/p cysto, URS, HLL 7 years prior in [place], [place] with Dr. Harrison Recurrent UTIs, 4 per year for several years Acute kidney injury vs Chronic Kidney disease, elevated Cr on admission with unk baseline UA concerning for infection Plan: Maintain left nephrostomy tube Cr uptrending despite decompression of urinary system 2.11 (1.71) - if continues to uptrend would consult nephrology for nonobstructive causes of renal failure Continue IV antibiotics Urine and blood cultures no growth Eventual renal scan to be performed to determine level of function in left atrophic kidney prior toany surgical planning - to be performed in a few weeks after discharge on outpatient basis No surgical intervention from urology standpoint at this time Thank you for allowing us to care for this patient. Please feel free to reach out with any further questions or concerns. Patient will need to be seen several weeks following discharge in clinic to discuss stone treatment vs nephrectomy and renal scan to determine renal function from left kidney Christi Chance DO, PGY-3 7:25 AM 07/20/2022 * Alexsandra Mckinley RN - 07/20/2022 5:00 AM EDT Patient's lactic was 3.8. Provider notified. * Alexsandra Mckinley RN - 07/20/2022 3:26 AM EDT Patient's sepsis score is now 5.12. Per sepsis protocol, automobile and property underwriter ordered lactic and blood cultures. Provider notified. * Alexsandra Mckinley RN - 07/20/2022 3:13 AM EDT Robotic Weld Technician notified provider of infection concerns. Patient's WBC was elevated from 7.1 yesterday to 12.3 today. Her HR is 110 RR 18 BP is now elevated at 156/83 (107). Temp is 36.9. SAT is 98% on room air. Her blood sugar is 439. * Alexsandra Mckinley RN - 07/20/2022 3:03 AM EDT Bladder scan shows 20 mL. Patient has not voided this shift. Output from nephrostomy tube is 200 mlso far this shift. Provider notified. * Alexsandra Mckinley RN - 07/20/2022 2:58 AM EDT Patient's BMP came back with a critical blood sugar of 439. POC test on unit showed a blood sugar of 415. Provider notified. * Alexsandra Mckinley RN - 07/19/2022 10:00 PM EDT Patient is tachycardic and diaphoretic. HR ranges from 109-128. Provider notified. Addendum at 2220 - provider assessed patient at bedside and is not concerned. * Nasreen Dean, PT - 07/19/2022 11:10 AM EDT Images from the original note were not included. Physical Therapy Physical Therapy Cancel Note DATE: 07/19/2022 NAME: Asa Thompson : 1970 Patient not seen this date for Physical Therapy due to: Patient is not appropriate for PT evaluation/treatment at this time d/t currently independent, awaiting IR. PT will check back 07/20 following procedure. * Lianne Mitchell - 07/19/2022 10:23 AM EDT Images from the original note were not included. Occupational Therapy [facility] Occupational Therapy Not Seen Note DATE: 07/19/2022 NAME: Asa Thompson : 1970 Patient not seen this date for Occupational Therapy due to: Other: Pt currently IND per RN, completed full shower this AM IND. Check back following IR procedure for nephrostomy tube placement. Next Scheduled Treatment: 07/20/2022 * Christi Chance DO - 07/19/2022 7:12 AM EDT Images from the original note were not included. Ke Bonilla, Jt, Charlie, Orlin, Priya Brambila Jr Urology Progress Note Subjective: Nothing acute overnight Afebrile, VSS Pain better controlled this am Has been NPO since midnight for IR proc today No nausea or vomiting Cr worsened 1.71 (1.45) Leukocytosis resolved 7.1 (13.2) Patient Vitals for the past 24 hrs: BP Temp Temp src Pulse Resp SpO2 Height Weight 07/19/22 0443 113/70 97.9 F (36.6 C) Oral 72 18 97 % -- -- 07/18/22 2358 -- -- -- -- 16 -- -- -- 07/18/22 2328 -- -- -- -- 20 -- -- -- 07/18/222 -- -- -- -- 16 -- -- -- 07/18/22 2132 -- -- -- -- 20 -- -- -- 07/18/22 2054 133/76 98.1 F (36.7 C) Oral 88 19 97 % 5' 5 (1.651 m) 255 lb 11.7 oz (116 kg) 07/18/22 1902 -- -- -- -- -- 98 % -- -- 07/18/22 1801 112/70 -- -- -- -- 92 % -- -- 07/18/22 1759 -- -- -- -- -- 97 % -- -- 07/18/22 1731 117/67 -- -- -- -- 92 % -- -- 07/18/22 1627 -- -- -- -- -- 94 % -- -- 07/18/22 1532 127/60 -- -- -- -- 95 % -- -- 07/18/22 1519 135/73 98 F (36.7 C) Oral 100 19 95 % -- -- Intake/Output Summary (Last 24 hours) at 07/19/2022 0712 Last data filed at 07/19/2022 0632 Gross per 24 hour Intake 1371.99 ml Output 400 ml Net 971.99 ml Recent Labs 07/18/22 1528 07/19/22 0621 WBC 12.3* 7.1 HGB 11.8* 10.4* HCT 35.4* 30.2* MCV 85.7 86.3 PLT 339 410 Recent Labs 07/18/22 1528 07/19/22 0621 NA 137 131* K 4.9 4.0 CL 100 98 CO2 24 19* BUN 33* 38* CREATININE 1.65* 1.71* Recent Labs 07/19/22 0524 COLORU Yellow PHUR 5.0 WBCUA TOO NUMEROUS TO COUNT RBCUA 10 TO 20 SPECGRAV 1.017 LEUKOCYTESUR LARGE* UROBILINOGEN Normal BILIRUBINUR NEGATIVE Additional Lab/culture results: Ucx and blood cultures pending Physical Exam: General: NAD HEENT: normocephalic, atraumatic Cardiovascular: Acyanotic, pulses palpable Respiratory: nonlabored breathing Abdomen: soft, nontender, nondistended : no SP tenderness, mild left flank pain Skin: warm and dry Extremities: no peripheral edema Psych: normal mood and menation Interval Imaging Findings: none Impression: 51F with left complete staghorn stone with left upper pole hydronephrosis and pyelitis issues: Left flank pain Left complete staghorn stone Left upper pole hydronephrosis Left pyelitis Left atrophic kidney History of urolithiasis s/p cysto, URS, HLL 7 years prior in [place], [place] with Dr. Harrison Recurrent UTIs, 4 per year for several years Acute kidney injury vs Chronic Kidney disease, Cr 1.71 (1.45) with unknown baseline UA concerning for infection Plan: Consult interventional radiology for left percutaneous nephrostomy tube placement - to be performedtoday PT/INR Hold ASA Continue IV antibiotics F/u urine and blood cultures Trend Cr 1.71 up from 1.45 yesterday Eventual renal scan to be performed to determine level of function in left atrophic kidney prior toany surgical planning - to be performed in a few weeks after discharge on outpatient basis No surgical intervention from urology standpoint at this time Christi Chance DO, PGY-3 7:12 AM 07/19/2022 * Keo Guevara MD - 07/19/2022 6:40 AM EDT Images from the original note were not included. [facility] Internal Medicine Teaching Residency Program Inpatient Daily Progress Note Patient: Asa Thompson Date of : 1970 Acct: [id number] Room: Admit date: 07/18/2022 Today's date: 07/19/22 Number of days in the hospital: 1 SUBJECTIVE Admitting Diagnosis: Calculous pyelonephritis CC: Left flank pain Pt examined at bedside. Chart & results reviewed. No acute events overnight Patient remained afebrile and hemodynamically stable Pain better controlled with pain medications IR guided left percutaneous nephrostomy tube placement today WBC-12.3-7.1 Creatinine 1.65-1.71 ROS: Constitutional: negative for chills, fevers, sweats Respiratory: negative for cough, dyspnea on exertion, hemoptysis, shortness of breath, wheezing Cardiovascular: negative for chest pain, chest pressure/discomfort, lower extremity edema, palpitations Gastrointestinal: negative for abdominal pain, constipation, diarrhea, nausea, vomiting Neurological: negative for dizziness, headache BRIEF HISTORY The patient is a pleasant 51 y.o. female with past medical history of diabetes, 2 occurrence of renal stone presents with a chief complaint of left flank pain that started 4 AM in the morning today.pain was radiating towards left groin, no fever, burning micturition, urgency or frequency, vomiting,loose stool, shortness of breath or chest discomfort. Patient went to [place] and CT imaging showed partially obstructing large staghorn calcification in left renal pelvis and perinephric edema-small amount of air and gas concerning for pyelonephritis.UA positive for leukocytes and nitrites with blood.WBC count 13.7 and creatinine of 1.45. Patient needed urology evaluation and nephrostomy tube placement so transferred to the [facility]. Urology consulted plan for IR tomorrow. patient admittedto the floor for further management. OBJECTIVE Vital Signs: BP 113/70 Pulse 72 Temp 97.9 F (36.6 C) (Oral) Resp 18 Ht 5' 5 (1.651 m) Wt 255 lb 11.7 oz (116 kg) SpO2 97% BMI 42.56 kg/m Temp (24hrs), Av F (36.7 C), Min:97.9 F (36.6 C), Max:98.1 F (36.7 C) In: 1372 Out: 400 [Urine:400] Physical Exam: PHYSICAL EXAMINATION: Constitutional: This is a well developed, well nourished, 51 y.o. year old female who is alert, oriented, cooperative and in no apparent distress. Head:normocephalic and atraumatic. EENT: PERRLA. No conjunctival injections. Septum was midline, mucosa was without erythema, exudatesor cobblestoning. No thrush was noted. Neck: Supple without thyromegaly. No elevated JVP. Trachea was midline. Respiratory: Chest was symmetrical without dullness to percussion. Breath sounds bilaterally were clear to auscultation. There were no wheezes, rhonchi or rales. There is no intercostal retraction oruse of accessory muscles. No egophony noted. Cardiovascular: Regular without murmur, clicks, gallops or rubs. Abdomen: Slightly rounded and soft without organomegaly. No rebound, rigidity or guarding was appreciated. Lymphatic: No lymphadenopathy. Musculoskeletal: Normal curvature of the spine. No gross muscle weakness. Extremities: No lower extremity edema, ulcerations, tenderness, varicosities or erythema. Muscle size, tone and strength are normal. No involuntary movements are noted. Skin: Warm and dry. Good color, turgor and pigmentation. No lesions or scars. No cyanosis or clubbing Neurological/Psychiatric: The patient's general behavior, level of consciousness, thought content and emotional status is normal. Medications: Scheduled Medications: atorvastatin 80 mg Oral Daily levothyroxine 200 mcg Oral Daily [Held by provider] hydroCHLOROthiazide 25 mg Oral Daily insulin glargine 25 Units SubCUTAneous BID sodium chloride flush 5-40 mL IntraVENous 2 times per day heparin (porcine) 5,000 Units SubCUTAneous 3 times per day insulin lispro 0-8 Units SubCUTAneous TID WC insulin lispro 0-4 Units SubCUTAneous Nightly ciprofloxacin 400 mg IntraVENous Q12H gabapentin 600 mg Oral BID Continuous Infusions: sodium chloride Stopped (07/19/22 0028) dextrose sodium chloride 100 mL/hr at 07/19/22 0636 PRN Medicationssodium chloride flush, 5-40 mL, PRN sodium chloride, , PRN ondansetron, 4 mg, Q8H PRN Or ondansetron, 4 mg, Q6H PRN polyethylene glycol, 17 g, Daily PRN acetaminophen, 650 mg, Q6H PRN Or acetaminophen, 650 mg, Q6H PRN glucose, 4 tablet, PRN dextrose bolus, 125 mL, PRN Or dextrose bolus, 250 mL, PRN glucagon (rDNA), 1 mg, PRN dextrose, , Continuous PRN fentanNYL, 50 mcg, Q4H PRN oxyCODONE-acetaminophen, 2 tablet, Q4H PRN Diagnostic Labs: CBC: Recent Labs 07/18/22 1528 07/19/22 0621 WBC 12.3* 7.1 RBC 4.13 3.50* HGB 11.8* 10.4* HCT 35.4* 30.2* MCV 85.7 86.3 RDW 13.2 13.6 PLT 339 410 BMP: Recent Labs 07/18/22 1528 NA 137 K 4.9 CL 100 CO2 24 BUN 33* CREATININE 1.65* BNP: No results for input(s): BNP in the last 72 hours. PT/INR: Recent Labs 07/18/22 1629 PROTIME 10.0 INR 0.9 APTT: Recent Labs 07/18/22 1629 APTT 22.8 CARDIAC ENZYMES: No results for input(s): CKMB, CKMBINDEX, TROPONINI in the last 72 hours. Invalid input(s): CKTOTAL;3 FASTING LIPID PANEL:No results found for: CHOL, HDL, TRIG LIVER PROFILE: No results for input(s): AST, ALT, ALB, BILIDIR, BILITOT, ALKPHOS in the last 72 hours. MICROBIOLOGY: Lab Results Component Value Date/Time CULTURE NO GROWTH 12 HOURS 07/18/2022 04:54 PM Imaging: No results found. ASSESSMENT & PLAN IMPRESSION This is a 51 y.o. female who presented with left flank pain and found to have staghorn calculus left kidney. Patient admitted to inpatient status for nephrostomy tube placement Principal Problem: Calculous pyelonephritis Plan: Urology on board-plan for IR for nephrostomy tube placement today UA-RBCs and WBCs, pending culture Started on Rocephin OMAR- continue IV fluids Will monitor with BMP daily Hypothyroidism Continue home levothyroxine 200 mcg Diabetes mellitus-on medium dose scaling-we will adjust accordingly tomorrow At home takes Humulin 70/30-80 units in the morning and 50 units in the night and metformin 500 mg twice daily Hypertension At home on hydrochlorothiazide 25 mg and losartan 100 mg-we will resume home meds History of CAD-on aspirin 81 mg and atorvastatin 80 mg Anxiety and depression-takes duloxetine 60 mg at home Neuropathic pain-takes 1200 mg gabapentin twice a day at home DVT ppx: Heparin GI ppx: Not indicated at this time PT/OT/SW-consulted we will follow-up Discharge Planning: grounds manager consulted Keo Guevara MD Internal Medicine Resident, PGY-1 [facility]; [place], [place] 07/19/2022, 6:40 AM Associated attestation - Livia Cantrell MD - 07/19/2022 7:45 PM EDT Attending Physician Statement I have discussed the case of Asa Thompson, including pertinent history and exam findings with the resident/fellow/medical student/RAND TACKER/PA. I have seen and examined the patient and the trevizo elementsof the encounter have been performed by me. I agree with the assessment, plan and orders as documented by the resident/fellow/medical student/RAND TACKER/PA With changes made to the note as needed. Pt was seen during rounds. Review of Systems: In addition to the pertinent positives and negatives as stated within HPI and the review of systemsas documented in their notes, all other systems were reviewed when able to and are reported negative. Please see my attestation for the history and physical Livia Cantrell MD 07/19/2022 7:45 PM * Brooklynn Ferrari MD - 07/18/2022 4:31 PM EDT This is a 51 y.o. female admitted 07/18/2022 for Kidney stone [N20.0] Acute pyelonephritis [N10] Calculous pyelonephritis [N20.0]. See H&P of admitting/legal internship resident for more details. Transferred from [facility] Patient came in due to left flank pain which started last night, has history of kidney stones in the past. Although denies similar pain from before. Denies n, vomiting, fever, chills. Patient recently had UTI as well which was treated with keflex possibly. Imaging at outlying facility showed left staghorn calculi with left hydronephrosis and left atrophic kidney. Received rocephin for UTI left staghorn calcification + partial obstruction + pyelo + OMAR Wbc 12.3 Coag panel for her PMH - L medial rectal palsy, headache, DM2, HTN, kidney stones 2017, depression, anxiety, HLD, hypothyroidism, bipolar disorder BMP: Recent Labs 07/18/22 1528 07/18/22 1820 NA 137 -- K 4.9 -- CL 100 -- CO2 24 -- BUN 33* -- CREATININE 1.65* -- GLUCOSE 239* 189 CBC: ) Recent Labs 07/18/22 1528 WBC 12.3* HGB 11.8* HCT 35.4* PLT 339 Assessment Principal Problem: Calculous pyelonephritis Active Problems: OMAR (acute kidney injury) (HCC) Type 2 diabetes mellitus, with long-term current use of insulin (HCC) Leukocytosis Hypothyroidism Depression Hypertension History of coronary artery disease Acute pyelonephritis Atrophy of left kidney Resolved Problems: * No resolved hospital problems. * Plan Left complete staghorn calculi complicated with pyelonephritis - continue rocephin, urology on board, plan for IR nephrosotmy tube tomorrow am, hold aspirin per urology. Diet NPO from midnight Left atrophic kidney - renal scan per urology OMAR secondary to obstruction #1 - NS at 100 c/hour DM type 2 - medium dose sliding scale, poct glucose checks, hypoglycemia. Started on lantus 25 U bid. Will adjust as needed Hypothyroidism - resume synthroid 200 mg daily Essential hypertension - resumed hctz 25 daily. Hold losartan due to OMAR. If needed will add norvasc UTI - allergic to keflex. Started on cipro 400 q12h. Await urine cultures DVT prophylaxis -heparin s.c Brooklynn Ferrari MD Department of Internal Medicine [facility] [place] 07/19/2022, 12:39 AM documented in this encounterBON [facility]AL[facility]OSPITALApp[facility] - [facility] Work Phone: [phone] 536-709709-16-2022 Hospital Discharge instructions* Discharge Instructions* Keo Guevara MD - 07/22/2022 12:18 PM EDT You were admitted for staghorn renal calculi and your urine culture from [place] was positive for Ecoli. Please take ciprofloxacin 500 mg twice a day for 14 days. Please stop taking hydrochlorothiazide due to hyponatremia. Please start taking Lasix. Please have BMP done in 1 week and follow-up with PCP in 1 week. Please have a Lasix renogram done and visit urology outpatient in a 2-weeks. * Discharge Instr - TIMO* Tye Walsh MD - 07/22/2022 1:49 PM EDT Continuity of Care Form Patient Name: Asa Thompson : 1970 Admit date: 07/18/2022 Discharge date: Code Status Order: Full Code Advance Directives: Admitting Physician: Livia Cantrell MD PCP: Garry Ramos MD Discharging Nurse: Discharging Hospital Unit/Room#: 0541/0541-01 Discharging Unit Phone Number: Emergency Contact: Extended Emergency Contact Information Primary Emergency Contact: arian thompson Relation: Child Brewery Cellar Worker needed? No Past Surgical History: Past Surgical History: Procedure Laterality Date IR NEPHROSTOMY PERCUTANEOUS LEFT 07/19/2022 IR NEPHROSTOMY PERCUTANEOUS LEFT 07/19/2022 Noman Mullen MD [facility] SPECIAL PROCEDURES Immunization History: There is no immunization history on file for this patient. Active Problems: Patient Active Problem List Diagnosis Code Calculous pyelonephritis N20.0 OMAR (acute kidney injury) ([facility]) N17.9 Type 2 diabetes mellitus, with long-term current use of insulin ([facility]) E11.9, Z79.4 Leukocytosis D72.829 Hypothyroidism E03.9 Depression F32.A Hypertension I10 History of coronary artery disease Z86.79 Acute pyelonephritis N10 Left renal atrophy N26.1 Kidney stone N20.0 Sepsis with acute renal failure without septic shock ([facility]) A41.9, R65.20, N17.9 History of penicillin allergy Z88.0 Metabolic acidosis E87.2 Hyponatremia E87.1 Left flank pain R10.9 NSAID long-term use Z79.1 Isolation/Infection: Isolation No Isolation Patient Infection Status None to display Nurse Assessment: Last Vital Signs: BP (!) 155/72 Pulse 92 Temp 98.2 F (36.8 C) (Oral) Resp 12 Ht 5' 5 (1.651 m) Wt 255 lb 11.7 oz (116 kg) SpO2 96% BMI 42.56 kg/m Last documented pain score (0-10 scale): Pain Level: 3 Last Weight: Wt Readings from Last 1 Encounters: 07/18/22 255 lb 11.7 oz (116 kg) Mental Status: {IP PT MENTAL STATUS:} IV Access: { TIMO IV ACCESS:[id number]} Nursing Mobility/ADLs: Walking {CHP DME ADLs:609289398} Transfer {CHP DME ADLs:778022367} Bathing {CHP DME ADLs:317695966} Dressing {CHP DME ADLs:465274089} Toileting {CHP DME ADLs:228378672} Feeding {CHP DME ADLs:783759256} Surgical Oncologist {CHP DME ADLs:476809867} Med Delivery { TIMO MED Delivery:[id number]} Wound Care Documentation and Therapy: Elimination: Continence: Bowel: {YES / NO:} Bladder: {YES / NO:} Urinary Catheter: {Urinary Catheter:540913520} Colostomy/Ileostomy/Ileal Conduit: {YES / NO:} Date of Last BM: Intake/Output Summary (Last 24 hours) at 07/22/2022 1349 Last data filed at 07/22/2022 0813 Gross per 24 hour Intake 1594.2 ml Output 3875 ml Net -2280.8 ml I/O last 3 completed shifts: In: 4236.1 [P.O.:580; I.V.:3350.1; IV Piggyback:306] Out: 6520 [Urine:6520] Safety Concerns: { TIMO Safety Concerns:358938762} Impairments/Disabilities: { TIMO Impairments/Disabilities:111836146} Nutrition Therapy: Current Nutrition Therapy: { TIMO Diet List:576659524} Routes of Feeding: {[facility] Other Feedings:449977493} Liquids: {[facility] liquid thickness:20998} Daily Fluid Restriction: {[facility] DME Yes amt example:383859426} Last Modified Barium Swallow with Video (Video Swallowing Test): {Done Not Done Date:} Treatments at the Time of Hospital Discharge: Respiratory Treatments: Oxygen Therapy: {Therapy; copd oxygen:05577} Ventilator: {[facility] Vent List:702544256} Rehab Therapies: {THERAPEUTIC INTERVENTION:2402164747} Weight Bearing Status/Restrictions: {[facility] Weight Bearin} Other Medical Equipment (for information only, NOT a DME order): {EQUIPMENT:884908523} Other Treatments: Patient's personal belongings (please select all that are sent with patient): {[facility] Belongings:081577892} RN SIGNATURE: {Esignature:114611192} CASE MANAGEMENT/SOCIAL WORK SECTION Inpatient Status Date: Readmission Risk Assessment Score: Readmission Risk Risk of Unplanned Readmission: 19 Discharging to Facility/ Agency Name: Address: Phone: Fax: Dialysis Facility (if applicable) Name: Address: Dialysis Schedule: Phone: Fax: [employer]ss [employer] Professional/Associate Professor Of Media [employer] signature: {Esignature:370851250} PHYSICIAN SECTION Prognosis: {Prognosis:5990527567} Condition at Discharge: { Patient Condition:833107085} Rehab Potential (if transferring to Rehab): {Prognosis:2631005783} Recommended Labs or Other Treatments After Discharge: Physician Certification: I certify the above information and transfer of Asa Thompson is necessary for the continuing treatment of the diagnosis listed and that she requires {Admit to Appropriate Level of Care:41230} for {GREATER/LESS:851913401} 30 days. Update Admission H&P: {[facility]P DME Changes in HandP:231070746} PHYSICIAN SIGNATURE: {Esignature:122848632} documented [facility] [employer] Work Phone: [phone]) 678-908709-13-2022 NotePROCEDURE: PERCUTANEOUS ANTEGRADE PYELOGRAM LEFT PERCUTANEOUS NEPHROURETERAL STENT PLACEMENT ULTRASOUND AND FLUOROSCOPY GUIDANCE MODERATE CONSCIOUS SEDATION 07/19/2022 HISTORY: ORDERING SYSTEM PROVIDED HISTORY: staghorn TECHNOLOGIST PROVIDED HISTORY: staghorn Is the patient ?->No SEDATION: Versed 0.5 mg IV, fentanyl 125 mcg IV were administered intravenously under my direct supervision; hemodynamic monitoring was provided by registered RN during the entire procedure which lasted approximately 1 hour. CONTRAST: Isovue 370-10 mL FLUOROSCOPY DOSE AND TYPE OR TIME AND EXPOSURES: Fluoroscopy time-9.4 minutes D AP-3918 cGy cm squared. TECHNIQUE Informed consent was obtained following detailed description of the procedure including risks, benefits, and alternatives. Cove protocol was followed. The patient's flank was prepped and draped in sterile fashion and local anesthesia was achieved with lidocaine. An Accustick needle was advanced into a posterior mid pole calyx using ultrasound and fluoroscopy guidance and a limited percutaneous antegrade pyelogram was performed. Subsequently, a 2nd 21 gauge needle was used to access a lower pole calyx, a 2nd 3 in 1 transition set and 0.018 inch guidewire was used to insert a 0.035 glidewire which was manipulated into the urinary bladder using a 4 Niuean Kumpe the catheter; the Glidewire was exchanged for a 0.035 inch Amplatz wire, the transition set and Kumpe the catheter removed, and an 8 FR percutaneous nephroureteral stent was inserted after the tract was dilated. The proximal pigtail was formed with some difficulty in the renal pelvis due to staghorn calculus; the distal pigtail was partially formed but in the urinary bladder. Excellent urine output was demonstrated. The catheter was sutured to the skin and the patient tolerated the procedure well. FINDINGS: Initial percutaneous antegrade pyelogram demonstrates hydronephrosis with a large staghorn calculus. Subsequent images show puncture of the lower pole calyx, 4 Niuean Kumpe the catheter manipulation and glidewire extension into the urinary bladder. Subsequent images show the nephroureteral stent in satisfactory position. IMPRESSION: Successful percutaneous left nephroureteral stent placement via lower pole, past a large staghorn calculus, with distal pigtail tip position in the urinary bladder, as above. Findings were discussed with KASH CLAY at 4:09 pm on 07/19/2022. Interpreted by: Noman Mullen MD Signed by: Noman Mullen MD 07/19/22 [facility]22 NotePROCEDURE: PERCUTANEOUS ANTEGRADE PYELOGRAM LEFT PERCUTANEOUS NEPHROURETERAL STENT PLACEMENT ULTRASOUND AND FLUOROSCOPY GUIDANCE MODERATE CONSCIOUS SEDATION 07/19/2022 HISTORY: ORDERING SYSTEM PROVIDED HISTORY: staorn TECHNOLOGIST PROVIDED HISTORY: staghorn Is the patient ?->No SEDATION: Versed 0.5 mg IV, fentanyl 125 mcg IV were administered intravenously under my direct supervision; hemodynamic monitoring was provided by registered RN during the entire procedure which lasted approximately 1 hour. CONTRAST: Isovue 370-10 mL FLUOROSCOPY DOSE AND TYPE OR TIME AND EXPOSURES: Fluoroscopy time-9.4 minutes D AP-3918 cGy cm squared. TECHNIQUE Informed consent was obtained following detailed description of the procedure including risks, benefits, and alternatives. Cove protocol was followed. The patient's flank was prepped and draped in sterile fashion and local anesthesia was achieved with lidocaine. An Accustick needle was advanced into a posterior mid pole calyx using ultrasound and fluoroscopy guidance and a limited percutaneous antegrade pyelogram was performed. Subsequently, a 2nd 21 gauge needle was used to access a lower pole calyx, a 2nd 3 in 1 transition set and 0.018 inch guidewire was used to insert a 0.035 glidewire which was manipulated into the urinary bladder using a 4 Niuean Kumpe the catheter; the Glidewire was exchanged for a 0.035 inch Amplatz wire, the transition set and Kumpe the catheter removed, and an 8 FR percutaneous nephroureteral stent was inserted after the tract was dilated. The proximal pigtail was formed with some difficulty in the renal pelvis due to staghorn calculus; the distal pigtail was partially formed but in the urinary bladder. Excellent urine output was demonstrated. The catheter was sutured to the skin and the patient tolerated the procedure well. FINDINGS: Initial percutaneous antegrade pyelogram demonstrates hydronephrosis with a large staghorn calculus. Subsequent images show puncture of the lower pole calyx, 4 Niuean Kumpe the catheter manipulation and glidewire extension into the urinary bladder. Subsequent images show the nephroureteral stent in satisfactory position. [facility] RIS [id number] NoteHNO ID: [id number] Author: Liliana Avila, PhD Service: ? Author Type: Physician Type: Progress Notes Filed: 03/11/2022 3:32 PM Note Text: [facility] Progress Note 03/11/2022 Billing code: 27638/[place] 3:10PM - I called the patient to remind her to check in for her 3:00PM appointment. BMI patient of Dr. Tamez, who is currently out on medical leave. Pt first saw Dr. Tamez on 01/13/2022 and last saw her on 08/11/2021 Cleared for surgery on 04/12/2021 Patient states I'm doing great. Patient did not realize she had this appointment, was driving, and elected to CANCEL. She did not know where she was in the process, and based on chart review, she may need to update her evaluation/medical records. Will send her a Flipaste message with instructions. Liliana Avila, PhD Clinical Health [facility]ologistFort [facility]01-20-2022 NoteHNO ID: [id number] Author: Jeannine Tamez, PhD Service: ? Author Type: Psychologist Type: Progress Notes Filed: 11/25/2021 8:38 AM Note Text: [facility] Patient no-showed appointment despite phone call and HIPAA compliant VM. Patient given instructions on rescheduling. Jeannine Tamez, PhD PsychologistFort Hamilton Hospital09-03-2021 NoteHNO ID: [id number] Author: Ghazal Doyle RD Service: ? Author Type: Registered Dietitian Type: Progress Notes Filed: 07/09/2021 10:55 AM Note Text: Able to contact patient this morning. Previously using Premier protein shake twice daily to complete liquid diet. Experienced hypoglycemia and stopped liquid diet. Patient restarted, using Slimfast Advanced (2) shakes per day and consumes (2) portions of applesauce and (2) portions of either apple juice or pineapple juice (4 ounces each) daily. Additionall, consuming macaroni salad for dinner. Inadequate intake protein and calories. Reviewed liquid diet phase. Patient will be using small amounts of carbohydrate to ease fear of hypoglycemia. Slimfast Advanced 4 to 4 1/2 bottles per day (8 am, 11 am, 2 pm, 6 pm, and 1/2 bottle at 9 pm) with 2 portions (1/2 cup each) applesauce per day for remaining liquid diet prior to surgery. Patient verbalized meal plan and stated understanding. Ghazal Doyle RDFort Hamilton Hospital08-31-2021 NoteHNO ID: [id number] Author: Ghazal Doyle RD Service: ? Author Type: Registered Dietitian Type: Progress Notes Filed: 07/06/2021 11:52 AM Note Text: Telephone call placed to patient at 11:49 AM at [phone]. Received forwarded My Chart message from Abraham Pacheco RN regarding hypoglycemia on liquid diet phase. No answer . Left message with contact telephone number [phone] and instructions to communicate with this provider via Flipaste when able. Ghazal Doyle RDFort [facility] Hospital08-16-2021 NoteHNO ID: [id number] Author: Quincy Rodriguez MD Service: ? Author Type: Physician Type: Progress Notes Filed: 06/21/2021 12:56 PM Note Text: Metabolic Surgery Postoperative Virtual Clinic Visit Name: Asa Thompson This visit was performed virtually via Live[employer] Mobile technology due to the COVID-19 epidemic as an effort to protect patients and minimize exposure.? Phone Visit I have discussed the nature of this visit with the patient which will occur via Distance [facility] (Phone, Virtual Visit) and she agrees to proceed with this interaction . HPI: Patient was previously scheduled for gastric bypass. She changed her mind and prefer sleeve gastrectomy at this point. No significant changes since last visit No new complaints Today's Visit: There were no vitals taken for this visit. No weight on file for this encounter. Last Visit: Wt: 107 kg (236 lb) BMI: 41.81 kg/(m2) Assessment A/P:50 year old female with morbid obesity and BMI of 41, and the following comorbidities: Patient Active Problem List Class 3 severe obesity with serious comorbidity and body mass index (BMI) of 40.0 to 44.9 in adult (HCC) Type 2 diabetes mellitus without complication, with long-term current use of insulin ([facility]) Preoperative cardiovascular examination Resolved Hospital Problems No resolved problems to display. Pre op labs ordered today EDUCATION: Encouraged to continue with healthy lifestyle changes and incorporate cardiovascular and resistance training, Discussed weight loss expectations after bariatric and metabolic surgery, Advised PT to avoid NSAIDs, smoking tobacco given increased risk of marginal ulcers or Discussed importance of protein intake as per the RDN note REFERRALS: N/A Sterling Biggs MD Advanced Laparoscopic AND Bariatric Surgery Fellow Bariatric AND Metabolic [facility] STAFF NOTE I have seen and evaluated the patient and discussed the case with the resident physician. I agree with the assessment and plan as documented in the resident?s note. We discussed risks and benefits of RYGB and sleeve gastrectomy in details. She will proceed with original plan which was RYGB which can provide better chance for diabetes control. I answered all of her questions. I spent a total of 25 minutes on the date of the service which included preparing to see the patient, completing clinical documentation, obtaining and/or reviewing separately obtained history and counseling and educating the patient/family/caregiver. Quincy Rodriguez [facility]06-04-2021 NoteHNO ID: [id number] Author: Jeannine Tamez, PhD Service: ? Author Type: Psychologist Type: Progress Notes Filed: 04/09/2021 2:44 PM Note Text: [facility] Receipt of Outside Records Patient: Asa Thompson Date: 04/09/2021 Received records from patient's physician, Garry Ramos MD of [place] (Address: [address] [place] [address]; ; ). Asa is off of all psychiatric meds and is stable for gastric bypass surgery. These records have been sent to scanning. Plan: *All requirements have been met Jeannine Tamez, PhD PsychologistFort Hamilton Hospital05-26-2021 NoteHNO ID: [id number] Author: Ghazal Doyle RD Service: ? Author Type: Registered Dietitian Type: Progress Notes Filed: 03/31/2021 9:29 AM Note Text: [facility] Nutrition Therapy: Virtual Consult ? Re-assessment This visit was performed virtually due to the COVID-19 epidemic as an effort to protect patients and minimize exposure. Consent from patient received to conduct visit virtually. This Team Access Model visit is a virtual encounter. It required patient-provider interaction for the medical decision making as documented below. This visit completed via IceBreaker Now as Zoom did not connect PROGRESS: Nutrition Intervention (date of last encounter 05/04/2020) 1.??Continue to?not skip meals. - - met 2.??Use protein shake 1x per day to replace any skipped meals or for breakfast?- - met 3.??Use the Healthy Plate Method of portion control for lunch and dinner??- - met ?4 oz lean meat (fish, chicken, pork tenderloin, turkey, seafood, eggs/cheese?1/2 plate non starchy vegetables (salad, greens, cabbage, spinach, brussels sprouts, broccoli,??carrots, celery, peppers, green beans, cauliflower) ?1 cup starch/starchy vegetables (corn, peas, garrett beans, winter squash, sweet potato, rice, pasta,??Potato) 4.??Physical activity:?Aim for 150-200 minutes per week. Include both cardio and weight resistance.- - met 5.??Drink 64 ounces per day water.??Fluids should follow these guidelines:??No carbonation, no caffeine, no calories, no alcohol.??- - met 6. Start researching post-op vitamins: [employer], [employer]-specific websites- - met Pre-op goal weight:?238 lbs Protein goal: 70-87?grams: CHANGES IN TREATMENT: Patient met goal(s): Yes Actions to implement interventions: DM2 Aminian walking treadmill, out of doors or biking daily for at least 20 minutes/session CLINICAL IMPRESSIONS: good Allergies: ALLERGIES Allergen Reactions - Ciprofloxacin Hives - Hydromorphone Hives - Morphine Unknown - Penicillins Unknown Medications: Current Outpatient Medications Medication Sig Dispense Refill - blood sugar diagnostic (TRUE METRIX GLUCOSE TEST STRIP) test strip Inject 1 Strip subcutaneously twice daily. - Insulin Syringe-Needle U-100 (BD INSULIN SYRINGE ULTRA-FINE) 1 mL 31 gauge x 5/16 Inject 1 Syringe subcutaneously twice daily. - colesevelam (WELCHOL) 625 mg tablet Take 1 tablet by mouth once daily. - hydroCHLOROthiazide (HYDRODIURIL, ESIDRIX) 25 mg tablet Take 1 tablet by mouth once daily. - metFORMIN (GLUCOPHAGE) 500 mg tablet Take 1 tablet by mouth twice daily. - predniSONE (DELTASONE) 10 mg tablet Take 1 tablet by mouth once daily. - aspirin, enteric coated (ASPIRIN, ENTERIC COATED) 81 mg EC tablet Take 81 mg by mouth once daily. - atorvastatin (LIPITOR) 20 mg tablet Take 20 mg by mouth once daily. - HUMULIN 70/30 100 unit/mL (70-30) - levothyroxine (SYNTHROID) 125 mcg tablet Take 125 mcg by mouth once daily. - loratadine (CLARITIN) 10 mg tablet Take 10 mg by mouth as needed. - ondansetron orally disintegrating (ZOFRAN ODT) 4 mg disintegrating tablet Take 4 mg by mouth as needed. No current facility-administered medications for this visit. PAST MEDICAL HISTORY Diagnosis Date - Anxiety - Bipolar disorder (HCC) - CAD (coronary artery disease) 10/06/2010 - DM (diabetes mellitus) ([facility]) - Hyperlipidemia - Hypothyroidism - Nephrolithiasis - Schizophrenia (HCC) - UTI (urinary tract infection) PAST SURGICAL HISTORY Procedure Laterality Date - CARDIAC CATH 10/06/2010 Moderate, nonhemodynamically significant stenosis of RCA (by FFR) - HYSTERECTOMY HX - PAST SURGICAL HISTORY OF 03/2016 urinary stent - TONSILLECTOMY HX ANTHROPOMETRICS Height per patient: 63? Weight per patient: 236 lbs# Most recent height and weight per [facility] Height: Last 1 Encounter Ht Readings: Date: Ht: 02/15/2021 160 cm (5' 3 ) Weight: Last 1 Encounter Wt Readings: Date: Wt: 02/23/2021 104.3 kg (230 lb) Body mass index is 41.81 kg/m?. Educational materials provided: None this visit Patient presents for follow up nutrition Virtual Consult. 14 pound weight loss (intentional) since initial assessment. Presents for Breann en Y Gastric Bypass with history DM2 (insulin ~5 years,), hypercholesterolemia, hypertension. Diet recall indicates consistent consumption protein at meals. Uses meal replacement shake daily - portioning all meals. Vegetables and fruit consumed daily - total portions 5 per day. Fluids are appropriate/consumes adequate fluids. Exercise includes 140-210 minutes/week light intensity walking/cycling. After session today, patient able to verbalize protein/fluid/exercise goals, recommendations for vitamin/minerals, use of protein shakes for meal replacement and for 2 week full liquid diet phase. Anticipate post op compliance. Patient meets the [employer] (more content not included)... [facility] Diagnosis Calculous pyelonephritis- Primary Kidney stone Calculus of kidney Acute pyelonephritis Acute pyelonephritis without lesion of renal medullary necrosis Left renal atrophy Renal sclerosis, unspecified Staghorn renal calculus Calculus of kidney OMAR (acute kidney injury) (HCC) Acute kidney failure, unspecified Leukocytosis Leukocytosis, unspecified Hypertension Unspecified essential hypertension Type 2 diabetes mellitus, with long-term current use of insulin (HCC) Hypothyroidism Unspecified hypothyroidism Depression Depressive disorder, not elsewhere classified History of coronary artery disease Personal history of other diseases of circulatory system Sepsis with acute renal failure without septic shock (HCC) History of penicillin allergy Personal history of allergy to penicillin Metabolic acidosis Acidosis Hyponatremia Hyposmolality and/or hyponatremia Left flank pain Abdominal pain, unspecified site NSAID long-term use Encounter for long-term (current) use of non-steroidal anti-inflammatories documented in this encounter [employer] Phone: evaluation note* Diagnosis Nephrostomy tube displaced (HCC)- Primary Urinary complications Nephrostomy complication (HCC) documented in this encounter [employer] Phone: History general Narrative - Reported* Type Description Date Medical History Hypercholesterolemia Medical History DM Medical History Hypothyroid Medical History diabetic neuropathy Surgical History ALIZA BSO 2000 Surgical History Heart catherization 2010 Surgical History kidney stone Surgical History left kidney removed 10/26/2022 Hospitalization History See past surgical histor y Hospitalization History Heart Event 2009 [employer] Other Hospital Discharge instructions* Attachments The following attachments cannot be sent through Care Everywhere. * Nephrostomy Tube Care (Maldivian) documented in this encounterBON [employer] Work Phone: Assessments No Assessments Information Available Summary Purpose Family History No Family History Records FoundNo Family History Records FoundNo Family History Records FoundNo Family History Records FoundNo Family History Records FoundNo Family History Records Found Advance Directives No Advanced Directives Records FoundLatest Code Status on File Code Status Date Activated Date Inactivated Comments Full Code 07/18/2022 6:14 PM Latest Code Status on File Code Status Date Activated Date Inactivated Comments Full Code 07/25/2022 8:11 PM Full Code 07/18/2022 6:14 PM 07/22/2022 6:51 PM Reason for Referral Specialty Diagnoses / Procedures Referred By Serina bonilla Referred To Contact Radiology Diagnoses Left renal atrophy Staghorn renal calculus Procedures NM KIDNEY W FLOW AND FUNCTION W PHARMACOLOGICAL INTERVENTION Robson, Christi, DO [address] [place] [address] Referral ID Status Reason Start Date Expiration Date Visits Re quested Visits Authorized [id number] Open 08/03/2022 08/03/2023 1 1 Additional Source Comments INFORMATION SOURCE (unrecogn ized section and content) DATE CREATED AUTHOR 04/03/2021 [facility] DATE CREATED AUTHOR AUTHOR'S ORGANIZ ATION 03/15/2022 [facility] DATE CREATED AUTHOR AUTHOR'S ORGANIZ ATION [facility] DATE CREATED AUTHOR AUTHOR'S ORGANIZ ATION 08/11/2022 [facility] DATE CREATED AUTHOR AUTHOR'S ORGANIZ ATION 02/07/2023 [facility] DATE CREATED AUTHOR AUTHOR'S ORGANIZ ATION 03/17/2023 [facility] Reason for Visit (unrecogniz ed section and content) Reason Comments Flank Pain Specialty Diagnoses / Procedures Referred By Serina bonilla Referred To Contact Diagnoses Kidney stone Acute pyelonephritis Calculous pyelonephritis Livia Cantrell MD [address] [address] [facility] [address] [place] [address] Referral ID Status Reason Start Date Expiration Date Visits Re quested Visits Authorized [id number] 1 1 Reason Comments Other nephrostamy tube got pulled. tub is broken and leaking urine. not able to gett it to stop leaking Specialty Diagnoses / Procedures Referred By Serina bonilla Referred To Contact Diagnoses Nephrostomy tube displaced (HCC) Nephrostomy complication (HCC) Paloma Arceo MD [address] [place] [address] [facility] [address] [place] [address] Referral ID Status Reason Start Date Expiration Date Visits Re quested Visits Authorized [id number] 1 1 Ordered Prescriptions (unrec ognized section and content) Prescription Sig Dispensed Refills Start Date End Da te levothyroxine (SYNTHROID) 200 MCG tablet Take 1 tablet by mouth Daily 30 tablet 0 07/22/2022 08/21/2022 ciprofloxacin (CIPRO) 500 MG tablet Take 1 tablet by mouth 2 times daily for 14 days 28 tablet 0 07/22/2022 08/05/2022 furosemide (LASIX) 20 MG tablet Take 1 tablet by mouth daily 60 tablet 3 07/23/2022 hydrALAZINE (APRESOLINE) 25 MG tablet Take 1 tablet by mouth every 8 hours 90 tablet 2 07/22/2022 08/21/2022 DULoxetine (CYMBALTA) 60 MG extended release capsule Take 1 capsule by mouth daily 30 capsule 1 07/22/2022 08/21/2022 gabapentin (NEURONTIN) 600 MG tablet Take 1 tablet by mouth 3 times daily for 30 days. 90 tablet 0 07/22/2022 08/21/2022 aspirin 81 MG EC tablet Take 1 tablet by mouth daily 30 tablet 3 07/22/2022 08/21/2022 ciprofloxacin (CIPRO) 500 MG tablet Take 1 tablet by mouth 2 times daily for 14 days 28 tablet 0 07/22/2022 07/22/2022 furosemide (LASIX) 20 MG tablet Take 1 tablet by mouth daily 60 tablet 3 07/23/2022 07/22/2022 hydrALAZINE (APRESOLINE) 25 MG tablet Take 1 tablet by mouth every 8 hours 90 tablet 3 07/22/2022 07/22/2022 Prescription Sig Dispensed Refills Start Date End Da te ibuprofen (ADVIL;MOTRIN) 800 MG tablet Take 1 tablet by mouth every 8 hours as needed for Pain 30 tablet 0 07/26/2022 08/05/2022 oxyCODONE-acetaminophen (PERCOCET) 5-325 MG per tabletIndications:Nephros kuldip complication (HCC) Take 1 tablet by mouth every 8 hours as needed for Pain for up to 3 days. 9 tablet 0 07/26/2022 07/29/2022 Scheduled Active and Recently Administ ered Medications (unrecognized section and content) Medication Order 07/20/2022 07/21/2022 07/22/2022 0.9 % sodium chloride bolus (COMPLETED) 500 mL (4.31 mL/kg), IntraVENous, at 247.9 mL/hr, Administer over 121 Minutes, ONCE, On Mon07/20/22 at 0545, For 1 dose 0537 (New Bag - Provider: Alexsandra Mckinley RN)0743 (Stopped - Provider: Ligia Mattson, BRANDON) atorvastatin (LIPITOR) tablet 80 mg 80 mg, Oral, DAILY, First dose on Mon07/19/22 at 2100, Until Discontinued 2157 (Given - Provider: TERRY BERGMAN) 2140 (Given - Provider: TERRY BERGMAN) 2100 (Due) ciprofloxacin (CIPRO) IVPB 400 mg (CANCELED) 400 mg, IntraVENous, EVERY 12 HOURS, 14 doses, First dose on Mon07/18/22 at 2145, Last dose on Mon07/25/22 at 0945, Antimicrobial Indications: Urinary Tract Infection, UTI duration of therapy: 7 days 0856 (New Bag - Provider: Ligia Mattson, BRANDON)1029 (Stopped - Provider: Ligia Mattson, BRANDON) DULoxetine (CYMBALTA) extended release capsule 60 mg 60 mg, Oral, DAILY, First dose on Mon07/20/22 at 1200, Until Discontinued, Do not crush or break. May add contents of capsule to apple juice or apple sauce, but not chocolate. 1235 (Given - Provider: Ligia Mattson RN) 0812 (Given - Provider: Latoya Chatterjee RN) 0834 (Given - Provider: Christine Campa, BRANDON) furosemide (LASIX) tablet 20 mg 20 mg, Oral, DAILY, First dose on Mon07/23/22 at 0900, Until Discontinued gabapentin (NEURONTIN) capsule 600 mg 600 mg, Oral, 2 TIMES DAILY, First dose on Mon07/18/22 at 2200, Until Discontinued 0850 (Given - Provider: Ligia Mattson RN - Comment: approved) 0100 (Held - Provider: TERRY BERGMAN - Reason: Patient/family refused)0812 (Given - Provider: Latoya Chatterjee RN)2140 (Given - Provider: TERRY BERGMAN) 0834 (Given - Provider: Christine Campa RN)2100 (Due) heparin (porcine) injection 5,000 Units 5,000 Units, SubCUTAneous, EVERY 8 HOURS SCHEDULED (3 times per day), First dose on Mon07/18/22 at 2200, Until Discontinued, Hold until okay with urology to give heparin 0600 (Automatically Held - Provider: Kash Clay MD)1400 (Automatically Held - Provider: Kash Clay MD)2200 (Automatically Held - Provider: Kash Clay MD) 0600 (Automatically Held - Provider: Kash Clay MD)1400 (Automatically Held - Provider: Kash Clay MD)1554 (Unheld by provider - Provider: Tye Walsh MD)2141 (Given - Provider: TERRY BERGMAN) 0550 (Given - Provider: TERRY BERGMAN)1355 (Given - Provider: Christine Campa RN)2200 (Due) hydrALAZINE (APRESOLINE) tablet 25 mg 25 mg, Oral, EVERY 8 HOURS SCHEDULED (3 times per day), First dose on Mon07/22/22 at 0800, Until Discontinued 0834 (Given - Provider: Christine Campa RN)1355 (Given - Provider: Christine Campa RN)2200 (Due) insulin glargine (LANTUS) injection vial 35 Units (CANCELED) 35 Units, SubCUTAneous, 2 TIMES DAILY, First dose (after last modification) on Mon07/20/22 at 0900, Until Discontinued 0841 (Given - Provider: Ligia Mattson RN) insulin glargine (LANTUS) injection vial 50 Units 50 Units, SubCUTAneous, 2 TIMES DAILY, First dose (after last modification) on Mon07/20/22 at 2100, Until Discontinued 0100 (Held - Provider: TERRY BERGMAN - Reason: Patient/family refused)1030 (Given - Provider: Latoya Chatterjee RN)2141 (Given - Provider: TERRY BERGMAN) 0845 (Given - Provider: Christine Campa RN)2100 (Due) insulin lispro (HUMALOG) injection vial 0-16 Units 0-16 Units, SubCUTAneous, 3 TIMES DAILY WITH MEALS, First dose (after last modification) on Mon07/20/22 at 0915, Until Discontinued, High Dose Corrective Algorithm Glucose: Dose: 70-199 No Insulin 200-249 4 Units 250-299 8 Units 300-349 12 Units Over 349 16 Units and notify physician 0915 (Given - Provider: Ligia Mattson RN - Comment: RN notifed provider)1711 (Given - Provider: Brandon Roach RN) 0938 (Given - Provider: Latoya Chatterjee RN)1313 (Given - Provider: Latoya Chatterjee RN)1644 (Not Given - Provider: Latoya Chatterjee RN - Reason: Order parameters not met) 0832 (Not Given - Provider: Christine Capma RN - Reason: Order parameters not met)1226 (Not Given - Provider: Christine Campa RN - Reason: Order parameters not met - Comment: BS 164)1700 (Due) insulin lispro (HUMALOG) injection vial 0-4 Units 0-4 Units, SubCUTAneous, NIGHTLY, First dose (after last modification) on Mon07/20/22 at 0915, Until Discontinued, If continuous tube feedings/TPN/NPO, give correction dose based on result, no reduction in dose. If eating or bolus tube feeding: Corrective Bedtime Algorithm Glucose: Dose: 70-299 No Insulin 300-349 4 Units Over 349 4 Units and notify physician 1126 (Not Given - Provider: Ligia Mtatson RN - Reason: Other - Comment: wrong start time - nightly) 0122 (Not Given - Provider: TERRY BERGMAN - Reason: Order parameters not met)2100 (Due) insulin lispro (HUMALOG) injection vial 10 Units (COMPLETED) 10 Units, SubCUTAneous, ONCE, 1 dose, On Mon07/20/22 at 1445, Formulary alternative for regular insulin per P&T protocol. 1452 (Given - Provider: Ligia Mattson RN) insulin lispro (HUMALOG) injection vial 5 Units 5 Units, SubCUTAneous, 3 TIMES DAILY WITH MEALS, First dose on Mon07/20/22 at 1200, Until Discontinued 1132 (Held by provider - Provider: Brooklynn Ferrari MD - Reason: Other)1200 (Automatically Held - Provider: Brooklynn Ferrari MD)1251 (Unheld by provider - Provider: Brooklynn Ferrari MD)1836 (Given - Provider: Brandon Roach RN) 0940 (Given - Provider: Latoya Chatterjee RN)1318 (Given - Provider: Latoya Chatterjee RN)1645 (Not Given - Provider: Latoya Chatterjee RN - Reason: Order parameters not met) 0835 (Given - Provider: Christine Campa RN)1228 (Given - Provider: Christine Campa RN)1700 (Due) labetalol (NORMODYNE;TRANDATE) injection 10 mg (COMPLETED) 10 mg, IntraVENous, ONCE, 1 dose, On Mon07/20/22 at 2145 2200 (Given - Provider: ETRRY BERGMAN) levothyroxine (SYNTHROID) tablet 200 mcg 200 mcg, Oral, DAILY, First dose on Mon07/19/22 at 0700, Until Discontinued, Tube feeding (TF) interaction, obtain physician order to manage, recommend holding TF for 30 minutes before and after dose. 0843 (Given - Provider: Ligia Mattson RN) 0812 (Given - Provider: Latoya Chatterjee RN) 0834 (Given - Provider: Christine Campa RN) lidocaine 1 % injection 5 mL 5 mL, IntraDERmal, ONCE, 1 dose, On Mon07/21/22 at 1615 1134 (Not Given - Provider: Christine Campa RN - Reason: Other) sodium chloride flush 0.9 % injection 5-40 mL 5-40 mL, IntraVENous, EVERY 12 HOURS SCHEDULED (2 times per day), First dose on Mon07/21/22 at 2100, Until Discontinued, For Line Patency: Peripheral IV = 5 mL; Midline or Central Line = 10 mL/lumen. If following IV push medication, administer flush at same rate as the IV push. Flush volume is determined by type of infusion therapy being given. For non-viscous solutions use: Peripheral IV = 5 mL Midline or Central Line = 10 mL/lumen For viscous solutions (i.e. blood components, parenteral nutrition, contrast media, or after obtaining blood sample) use: Peripheral IV = 10 mL Midline or Central Line = 20 mL/lumen 0122 (Canceled Entry - Provider: TERRY BERGMAN)0833 (Given - Provider: Christine Campa RN)2100 (Due) tigecycline (TYGACIL) 100 mg in sodium chloride 0.9 % 100 mL IVPB (COMPLETED) 100 mg, IntraVENous, at 100 mL/hr, Administer over 60 Minutes, ONCE, On Mon07/20/22 at 1645, For 1 dose 1721 (New Bag - Provider: Brandon Roach RN)1821 (Stopped - Provider: TERRY BERGMAN)1840 (Stopped - Provider: Brandon Roach RN) tigecycline (TYGACIL) 50 mg in sodium chloride 0.9 % 100 mL IVPB 50 mg, IntraVENous, at 100 mL/hr, Administer over 60 Minutes, EVERY 12 HOURS, First dose on Mon07/21/22 at 0445 0532 (New Bag - Provider: TERRY BERGMAN)0533 (Rate/Dose Verify - Provider: TERRY BERGMAN)0609 (Rate/Dose Verify - Provider: TERRY BERGMAN)0639 (Stopped - Provider: Latoya Chatterjee RN)0819 (Stopped - Provider: Latoya Chatterjee RN)1705 (New Bag - Provider: Latoya Chatterjee RN)1805 (Stopped - Provider: Latoya Chatterjee RN) 0601 (New Bag - Provider: TERRY BERGMAN)0701 (Stopped - Provider: Christine Campa, BRANDON)1614 (Not Given - Provider: Christine Campa, BRANDON - Reason: Other - Comment: per Keo Guevara) tobramycin (NEBCIN) 200 mg in dextrose 5 % 100 mL IVPB (COMPLETED) 200 mg, IntraVENous, ONCE, 1 dose, On Mon07/20/22 at 1600, Antimicrobial Indications: Urinary Tract Infection, UTI duration of therapy: Other, Other Urinary Tract Infection Duration: 1 day 1658 (New Bag - Provider: Rosette Kelley RN)1728 (Stopped - Provider: Rosette Kelley RN) Continuous Medication Order 07/20/2022 07/21/2022 07/22/2022 0.9 % sodium chloride infusion (CANCELED) IntraVENous, at 125 mL/hr, CONTINUOUS, Starting on Mon07/18/22 at 1830 0039 (Rate/Dose Change - Provider: Alexsandra Mckinley RN)0047 (Stopped - Provider: Alexsandra Mckinley RN)0047 (New Bag - Provider: Alexsandra Mckinley RN)0751 (New Bag - Provider: Ligia Mattson, BRANDON)0856 (Rate/Dose Change - Provider: Ligia Mattson, BRANDON)0900 (Rate/Dose Verify - Provider: TERRY BERGMAN)1621 (Rate/Dose Verify - Provider: TERRY BERGMAN)2028 (Stopped - Provider: TERRY BERGMAN)2029 (Stopped - Provider: TERRY BERGMAN) sodium bicarbonate 75 mEq in sodium chloride 0.45 % 1,000 mL infusion (CANCELED) IntraVENous, at 50 mL/hr, CONTINUOUS, Starting on Mon07/20/22 at 1730 2028 (New Bag - Provider: TERRY BERGMAN) 0609 (Rate/Dose Verify - Provider: TERRY BERGMAN)1107 (Paused - Provider: Latoya Chatterjee RN)1643 (Rate/Dose Change - Provider: Latoya Chatterjee RN)1644 (Rate/Dose Verify - Provider: Latoya Chatterjee RN)1818 (Rate/Dose Verify - Provider: Latoya Chatterjee RN) 0038 (Rate/Dose Verify - Provider: TERRY BERGMAN)0312 (New Bag - Provider: TERRY BERGMAN) PRN Medication Order 07/20/2022 07/21/2022 07/22/2022 0.9 % sodium chloride infusion (CANCELED) IntraVENous, at 5-250 mL/hr, PRN, if patient receiving piggyback infusions and maintenance fluids are not ordered OR KVO fluids to protect IV site / prevent frequent line interruptions/ long duration, Starting on Mon07/18/22 at 1814, For piggyback infusion, administer at same rate as piggyback for a total of 25 mL. Enter 25 mL into dose field and piggyback rate into rate field of order. If piggyback is infusing at a rate less than 100 mL/hr, enter 25 mL into dose field and 100 mL/hr into rate field of order. For KVO fluids, enter rate of 20 mL/hr or less into rate field of order. 0855 (Rate/Dose Change - Provider: TERRY BERGMAN)1032 (Paused - Provider: TERRY BERGMAN)1720 (Rate/Dose Change - Provider: TERRY BERGMAN)2029 (Stopped - Provider: TERRY BERGMAN) 0532 (New Bag - Provider: TERRY BERGMAN)0533 (Stopped - Provider: TERRY BERGMAN) 0.9 % sodium chloride infusion 25 mL, IntraVENous, at 100 mL/hr, PRN, If patient receiving piggyback infusions without ordered maintenance IV fluids or with frequent/long duration piggyback infusions, Starting on Lizy 07/21/22 at 1553, Administer at the same rate as the piggyback being infused. 0600 (New Bag - Provider: TERRY BERGMAN)0720 (Stopped - Provider: Christine Campa RN) acetaminophen (TYLENOL) suppository 650 mg(Linked Group 1) 650 mg, Rectal, EVERY 6 HOURS PRN, Starting on Mon07/18/22 at 1814, Until Discontinued, Pain Mild (1-3), Fever, For temp greater than 100.4 F (38 C), Administer if oral route cannot be used. 0513 (See Alternative - Provider: Alexsandra Mckinley RN)1235 (See Alternative - Provider: Ligia Mattson RN)2355 (See Alternative - Provider: TERRY BERGMAN) acetaminophen (TYLENOL) tablet 650 mg(Linked Group 1) 650 mg, Oral, EVERY 6 HOURS PRN, Starting on Mon07/18/22 at 1814, Until Discontinued, Pain Mild (1-3), Fever, For temp greater than 100.4 F (38 C), Maximum dose of acetaminophen is 4000 mg from all sources in 24 hours. 0513 (Given - Provider: Alexsandra Mckinley RN)1235 (Given - Provider: Ligia Mattson RN)2355 (Given - Provider: TERRY BERGMAN) dextrose 10 % infusion IntraVENous, at 100 mL/hr, CONTINUOUS PRN, if blood glucose remains LESS THAN 70 mg/dL after 2 dextrose 10% intravenous boluses or administration of glucagon, Starting on Mon07/18/22 at 1814, If blood glucose fails to stabilize after 2 dextrose 10% intravenous boluses or glucagon administration, start dextrose 10% infusion at 100 mL/hour and repeat blood glucose at 30 and 60 minutes. If blood glucose is GREATER THAN 70 mg/dL after 60 minutes, discontinue dextrose 10% infusion. dextrose bolus 10% 125 mL(Linked Group 2) 125 mL, IntraVENous, at 937.5 mL/hr, Administer over 8 Minutes, PRN, Other, Blood glucose 40 - 69 mg/dL and patient NOT ALERT or NPO, Starting on Mon07/18/22 at 1814, Repeat blood glucose in 15 minutes. If blood glucose remains LESS THAN 70 mg/dL, repeat treatment and recheck blood glucose in 15 minutes x 2. If using glycemic management system, dose as instructed per system. If blood glucose remains LESS THAN 70 mg/dL after 2 intravenous boluses start dextrose 10% at 100 mL/hour and notify provider. dextrose bolus 10% 250 mL(Linked Group 2) 250 mL, IntraVENous, at 937.5 mL/hr, Administer over 16 Minutes, PRN, Other, Blood glucose LESS THAN 40 mg/dL and patient NOT ALERT or NPO, Starting on Mon07/18/22 at 1814, Repeat blood glucose in 15 minutes. If blood glucose remains LESS THAN 70 mg/dL, repeat treatment and recheck blood glucose in 15 minutes x 2. If using glycemic management system, dose as instructed per system. If blood glucose remains LESS THAN 70 mg/dL after 2 intravenous boluses start dextrose 10% at 100 mL/hour and notify provider. fentaNYL (SUBLIMAZE) injection 50 mcg (CANCELED) 50 mcg, IntraVENous, EVERY 4 HOURS PRN, Starting on Mon07/18/22 at 2123, Until Mon07/20/22 at 1026, Pain Severe (7-10), If oral and IV narcotics ordered, use oral first and only use IV if oral is ineffective or cannot take oral. Do Not give oral and IV within 1 hour of each other unless specifically ordered. 0423 (Given - Provider: Alexsandra Mckinley RN) fentaNYL (SUBLIMAZE) injection 50 mcg (CANCELED) 50 mcg, IntraVENous, EVERY 2 HOURS PRN, Starting on Mon07/20/22 at 1030, Until Mon07/20/22 at 1345, Pain Severe (7-10), If oral and IV narcotics ordered, use oral first and only use IV if oral is ineffective or cannot take oral. Do Not give oral and IV within 1 hour of each other unless specifically ordered. 1050 (Given - Provider: Ligia Mattson, BRANDON)1250 (Given - Provider: Ligia Mattson, BRANDON) fentaNYL (SUBLIMAZE) injection 50 mcg 50 mcg, IntraVENous, EVERY 1 HOUR PRN, Starting on Mon07/20/22 at 1400, Until Discontinued, Pain Severe (7-10), If oral and IV narcotics ordered, use oral first and only use IV if oral is ineffective or cannot take oral. Do Not give oral and IV within 1 hour of each other unless specifically ordered. 1821 (Given - Provider: Brandon Roach RN) 1026 (Given - Provider: Latoya Chatterjee RN) glucagon (rDNA) injection 1 mg 1 mg, SubCUTAneous, PRN, Starting on Mon07/18/22 at 1814, Until Discontinued, Low blood sugar, Blood glucose LESS THAN 70 mg/dL and patient NOT ALERT or NPO and does not have IV access., After administration, attempt intravenous access and start dextrose 10% at 100 mL/hr. Repeat blood glucose in 15 minutes x 2 and notify provider. glucose chewable tablet 16 g 16 g (4 tablet), Oral, PRN, Starting on Mon07/18/22 at 1814, Until Discontinued, Low blood sugar, If blood glucose is LESS THAN 70 mg/dL and patient is alert and tolerating oral. Give 4 tablets (16g) Repeat blood glucose in 15 minutes. If blood glucose is LESS THAN 70 mg/dL, repeat treatment and recheck blood glucose in 15 minutes x 2. If blood glucose remains LESS THAN 70 mg/dL, notify provider. ondansetron (ZOFRAN) injection 4 mg(Linked Group 3) 4 mg, IntraVENous, EVERY 6 HOURS PRN, Starting on Mon07/18/22 at 1814, Until Discontinued, Nausea, Vomiting, Administer if oral route cannot be used. ondansetron (ZOFRAN-ODT) disintegrating tablet 4 mg(Linked Group 3) 4 mg, Oral, EVERY 8 HOURS PRN, Starting on Mon07/18/22 at 1814, Until Discontinued, Nausea, Vomiting oxyCODONE (ROXICODONE) immediate release tablet 5 mg 5 mg, Oral, EVERY 4 HOURS PRN, Starting on Mon07/20/22 at 1346, Until Discontinued, Pain Severe (7-10) 1552 (Given - Provider: Ligia Mattson RN) 0812 (Given - Provider: Latoya Chatterjee RN)2141 (Given - Provider: TERRY BERGMAN) oxyCODONE-acetaminophen (PERCOCET) 5-325 MG per tablet 2 tablet (CANCELED) Mg/kg dosing is based on the oxycodone component., 2 tablet, Oral, EVERY 4 HOURS PRN, Starting on Mon07/18/22 at 2121, Until Mon07/20/22 at 1026, Pain Severe (7-10), Maximum dose of acetaminophen is 4000 mg from all sources in 24 hours. 0817 (Given - Provider: Ligia Mattson RN) polyethylene glycol (GLYCOLAX) packet 17 g 17 g, Oral, DAILY PRN, Starting on Mon07/18/22 at 1814, Until Discontinued, Constipation, First line therapy for constipation sodium chloride flush 0.9 % injection 5-40 mL (CANCELED) 5-40 mL, IntraVENous, PRN, Starting on Mon07/18/22 at 1814, Until Lizy 07/21/22 at 1559, Line Care, After every IV line use, For Line Patency: Peripheral IV = 5 mL; Midline or Central Line = 10 mL/lumen. If following IV push medication, administer flush at same rate as the IV push. Flush volume is determined by type of infusion therapy being given. For non-viscous solutions use: Peripheral IV = 5 mL Midline or Central Line = 10 mL/lumen For viscous solutions (i.e. blood components, parenteral nutrition, contrast media, or after obtaining blood sample) use: Peripheral IV = 10 mL Midline or Central Line = 20 mL/lumen 0423 (Given - Provider: Alexsandra Mckinley RN) sodium chloride flush 0.9 % injection 5-40 mL 5-40 mL, IntraVENous, PRN, Starting on Lizy 07/21/22 at 1553, Until Discontinued, Line Care, For Line Patency: Peripheral IV = 5 mL; Midline or Central Line = 10 mL/lumen. If following IV push medication, administer flush at same rate as the IV push. Flush volume is determined by type of infusion therapy being given. For non-viscous solutions use: Peripheral IV = 5 mL Midline or Central Line = 10 mL/lumen For viscous solutions (i.e. blood components, parenteral nutrition, contrast media, or after obtaining blood sample) use: Peripheral IV = 10 mL Midline or Central Line = 20 mL/lumen Linked Groups Order Group 1: acetaminophen (TYLENOL) tablet 650 mgJump to med 650 mg, Oral, EVERY 6 HOURS PRN, Starting on Mon07/18/22 at 1814, Until Discontinued, Pain Mild (1-3), Fever, For temp greater than 100.4 F (38 C)
Maximum dose of acetaminophen is 4000 mg from all sources in 24 hours.
Or acetaminophen (TYLENOL) suppository 650 mgJump to med 650 mg, Rectal, EVERY 6 HOURS PRN, Starting on Mon07/18/22 at 1814, Until Discontinued, Pain Mild (1-3), Fever, For temp greater than 100.4 F (38 C)
Administer if oral route cannot be used.
Group 2: dextrose bolus 10% 125 mLJump to med 125 mL, IntraVENous, at 937.5 mL/hr, Administer over 8 Minutes, PRN, Other, Blood glucose 40 - 69 mg/dL and patient NOT ALERT or NPO, Starting on Mon07/18/22 at 1814
Repeat blood glucose in 15 minutes. If blood glucose remains LESS THAN 70 mg/dL, repeat treatment and recheck blood glucose in 15 minutes x 2. If using glycemic management system, dose as instructed per system. If blood glucose remains LESS THAN 70 mg/dL after 2 intravenous boluses start dextrose 10% at 100 mL/hour and notify provider.
Or dextrose bolus 10% 250 mLJump to med 250 mL, IntraVENous, at 937.5 mL/hr, Administer over 16 Minutes, PRN, Other, Blood glucose LESS THAN 40 mg/dL and patient NOT ALERT or NPO, Starting on Mon07/18/22 at 1814
Repeat blood glucose in 15 minutes. If blood glucose remains LESS THAN 70 mg/dL, repeat treatment and recheck blood glucose in 15 minutes x 2. If using glycemic management system, dose as instructed per system. If blood glucose remains LESS THAN 70 mg/dL after 2 intravenous boluses start dextrose 10% at 100 mL/hour and notify provider.
Group 3: ondansetron (ZOFRAN-ODT) disintegrating tablet 4 mgJump to med 4 mg, Oral, EVERY 8 HOURS PRN, Starting on Mon07/18/22 at 1814, Until Discontinued, Nausea, Vomiting Or ondansetron (ZOFRAN) injection 4 mgJump to med 4 mg, IntraVENous, EVERY 6 HOURS PRN, Starting on Mon07/18/22 at 1814, Until Discontinued, Nausea, Vomiting
Administer if oral route cannot be used.
Scheduled Medication Order 07/24/2022 07/25/2022 07/26/2022 aspirin EC tablet 81 mg 81 mg, Oral, DAILY, First dose on Mon07/26/22 at 0900, Until Discontinued, Do not crush or break. 1217 (Given - Provid er: Tesha Boggs RN) atorvastatin (LIPITOR) tablet 80 mg 80 mg, Oral, DAILY, First dose on Mon07/26/22 at 0900, Until Discontinued 2100 (Due - Provider : Tesha Boggs RN) ciprofloxacin (CIPRO) tablet 500 mg 500 mg, Oral, 2 TIMES DAILY, First dose on Mon07/25/22 at 2300, Until Discontinued, Antimicrobial Indications: Urinary Tract Infection, UTI duration of therapy: Other, Do not take with dairy products or calcium-fortified juices. Tube feeding (TF) interaction, obtain physician order to manage. Recommend holding TF for 1 hr before and 1 hr after dose. Due to decreased absorption do not give by J tube. 0007 (Given - Provid er: Coretta Scott RN)121 (Given - Provider: Tesha Boggs RN)2100 (Due) DULoxetine (CYMBALTA) extended release capsule 60 mg 60 mg, Oral, DAILY, First dose on Mon07/26/22 at 0900, Until Discontinued, Do not crush or break. May add contents of capsule to apple juice or apple sauce, but not chocolate. 1216 (Given - Provid er: Tesha Boggs RN) furosemide (LASIX) tablet 20 mg 20 mg, Oral, DAILY, First dose on Mon07/26/22 at 0900, Until Discontinued 1215 (Given - Provid er: Tesha Boggs RN) gabapentin (NEURONTIN) tablet 600 mg 600 mg, Oral, 3 TIMES DAILY, First dose on Mon07/25/22 at 2300, Until Discontinued 000 (Given - Provid er: Coretta Scott RN)0900 (Not Given - Provider: Tesha Boggs RN - Reason: Patient not available - Comment: pt not arrived to floor)121 (Given - Provider: Tesha Boggs RN)2100 (Due) hydrALAZINE (APRESOLINE) tablet 25 mg 25 mg, Oral, EVERY 8 HOURS SCHEDULED (3 times per day), First dose on Mon07/25/22 at 2300, Until Discontinued 000 (Given - Provid er: Coretta Scott RN)0900 (Not Given - Provider: Tesha Boggs RN - Reason: Patient not available - Comment: PT not arrived to floor yet)121 (Given - Provider: Tesha Boggs RN)2200 (Due) insulin glargine (LANTUS) injection vial 73 Units 73 Units, SubCUTAneous, NIGHTLY, First dose on Mon07/26/22 at 2100, Until Discontinued 2100 (Due) insulin lispro (HUMALOG) injection vial 13 Units 13 Units, SubCUTAneous, 3 TIMES DAILY WITH MEALS, First dose on Mon07/26/22 at 1315, Until Discontinued 131 (Due)1700 (Due) ketorolac (TORADOL) injection 30 mg (COMPLETED) Ketorolac is contraindicated in patients with advanced renal impairment and in patients at risk of renal failure due to volume depletion. For 65 years of age and older OR weight less than 50 kg, use 15 mg IV every 6 hours; MAX dose: 60 mg/day. Dose greater than 30 mg must be administered via intramuscular route. Do not administer for more than 5 days., 30 mg, IntraVENous, ONCE, 1 dose, On Mon07/25/22 at 2300, Do not administer for more than 5 days. 0029 (Given - Provid er: Coretta Scott RN) ketorolac (TORADOL) injection 30 mg Ketorolac is contraindicated in patients with advanced renal impairment and in patients at risk of renal failure due to volume depletion. For 65 years of age and older OR weight less than 50 kg, use 15 mg IV every 6 hours; MAX dose: 60 mg/day. Dose greater than 30 mg must be administered via intramuscular route. Do not administer for more than 5 days., 30 mg, IntraVENous, EVERY 6 HOURS, 4 doses, First dose (after last reorder) on Mon07/26/22 at 1130, Last dose on Mon07/27/22 at 0530, Do not administer for more than 5 days. 1215 (Not Given - Pr ovider: Tesha Boggs RN - Reason: Patient/family refused)1730 (Due)2330 (Due) levothyroxine (SYNTHROID) tablet 200 mcg 200 mcg, Oral, DAILY, First dose on Mon07/26/22 at 0700, Until Discontinued, Tube feeding (TF) interaction, obtain physician order to manage, recommend holding TF for 30 minutes before and after dose. 1213 (Not Given - Pr ovider: Tesha Boggs RN - Reason: Patient/family refused) losartan (COZAAR) tablet 100 mg 100 mg, Oral, DAILY, First dose on Mon07/26/22 at 0900, Until Discontinued 1216 (Given - Provid er: Tesha Boggs RN) metFORMIN (GLUCOPHAGE) tablet 500 mg 500 mg, Oral, 2 TIMES DAILY WITH MEALS, First dose on Mon07/26/22 at 1700, Until Discontinued 1700 (Due) sodium chloride flush 0.9 % injection 5-40 mL 5-40 mL, IntraVENous, EVERY 12 HOURS SCHEDULED (2 times per day), First dose on Mon07/25/22 at 2100, Until Discontinued, For Line Patency: Peripheral IV = 5 mL; Midline or Central Line = 10 mL/lumen. If following IV push medication, administer flush at same rate as the IV push. Flush volume is determined by type of infusion therapy being given. For non-viscous solutions use: Peripheral IV = 5 mL Midline or Central Line = 10 mL/lumen For viscous solutions (i.e. blood components, parenteral nutrition, contrast media, or after obtaining blood sample) use: Peripheral IV = 10 mL Midline or Central Line = 20 mL/lumen 0031 (Given - Provid er: Ekaterina Melendez RN)0900 (Due)2100 (Due) PRN Medication Order 07/24/2022 07/25/2022 07/26/2022 0.9 % sodium chloride infusion 25 mL, IntraVENous, at 100 mL/hr, PRN, If patient receiving piggyback infusions without ordered maintenance IV fluids or with frequent/long duration piggyback infusions, Starting on Mon07/25/22 at 2002, Administer at the same rate as the piggyback being infused. acetaminophen (TYLENOL) suppository 650 mg(Linked Group 1) 650 mg, Rectal, EVERY 6 HOURS PRN, Starting on Mon07/25/22 at 2002, Until Discontinued, Pain Mild (1-3), Fever, For temp greater than 100.4 F (38 C), Administer if oral route cannot be used. acetaminophen (TYLENOL) tablet 650 mg(Linked Group 1) 650 mg, Oral, EVERY 6 HOURS PRN, Starting on Mon07/25/22 at 2002, Until Discontinued, Pain Mild (1-3), Fever, For temp greater than 100.4 F (38 C), Maximum dose of acetaminophen is 4000 mg from all sources in 24 hours. dextrose 10 % infusion IntraVENous, at 100 mL/hr, CONTINUOUS PRN, if blood glucose remains LESS THAN 70 mg/dL after 2 dextrose 10% intravenous boluses or administration of glucagon, Starting on Mon07/26/22 at 1229, If blood glucose fails to stabilize after 2 dextrose 10% intravenous boluses or glucagon administration, start dextrose 10% infusion at 100 mL/hour and repeat blood glucose at 30 and 60 minutes. If blood glucose is GREATER THAN 70 mg/dL after 60 minutes, discontinue dextrose 10% infusion. dextrose bolus 10% 125 mL(Linked Group 2) 125 mL, IntraVENous, at 937.5 mL/hr, Administer over 8 Minutes, PRN, Other, Blood glucose 40 - 69 mg/dL and patient NOT ALERT or NPO, Starting on Mon07/26/22 at 1229, Repeat blood glucose in 15 minutes. If blood glucose remains LESS THAN 70 mg/dL, repeat treatment and recheck blood glucose in 15 minutes x 2. If using glycemic management system, dose as instructed per system. If blood glucose remains LESS THAN 70 mg/dL after 2 intravenous boluses start dextrose 10% at 100 mL/hour and notify provider. dextrose bolus 10% 250 mL(Linked Group 2) 250 mL, IntraVENous, at 937.5 mL/hr, Administer over 16 Minutes, PRN, Other, Blood glucose LESS THAN 40 mg/dL and patient NOT ALERT or NPO, Starting on Mon07/26/22 at 1229, Repeat blood glucose in 15 minutes. If blood glucose remains LESS THAN 70 mg/dL, repeat treatment and recheck blood glucose in 15 minutes x 2. If using glycemic management system, dose as instructed per system. If blood glucose remains LESS THAN 70 mg/dL after 2 intravenous boluses start dextrose 10% at 100 mL/hour and notify provider. fentaNYL (SUBLIMAZE) injection (COMPLETED) ONCE PRN, 1 dose, Starting on Mon07/26/22 at 1008, Until Mon07/26/22 at 1008 1008 (Given - Provid er: Sona Ambriz RN - Comment: PROCEDURAL PAIN) glucagon (rDNA) injection 1 mg 1 mg, SubCUTAneous, PRN, Starting on Mon07/26/22 at 1229, Until Discontinued, Low blood sugar, Blood glucose LESS THAN 70 mg/dL and patient NOT ALERT or NPO and does not have IV access., After administration, attempt intravenous access and start dextrose 10% at 100 mL/hr. Repeat blood glucose in 15 minutes x 2 and notify provider. glucose chewable tablet 16 g 16 g (4 tablet), Oral, PRN, Starting on Mon07/26/22 at 1229, Until Discontinued, Low blood sugar, If blood glucose is LESS THAN 70 mg/dL and patient is alert and tolerating oral. Give 4 tablets (16g) Repeat blood glucose in 15 minutes. If blood glucose is LESS THAN 70 mg/dL, repeat treatment and recheck blood glucose in 15 minutes x 2. If blood glucose remains LESS THAN 70 mg/dL, notify provider. iopamidol (ISOVUE-370) 76 % injection 50 mL (COMPLETED) 50 mL, IntraVENous, IMG ONCE PRN, 1 dose, Starting on Mon07/26/22 at 1030, Until Mon07/26/22 at 1031, Other 1031 (Given - Provid er: Cinthia Brownlee) magnesium oxide (MAG-OX) tablet 400 mg 400 mg, Oral, 2 TIMES DAILY PRN, Starting on Mon07/25/22 at 2253, Until Discontinued, for low Mag 1215 (Given - Provid er: Tesha Boggs RN) ondansetron (ZOFRAN) injection 4 mg 4 mg, IntraVENous, EVERY 4 HOURS PRN, Starting on Mon07/25/22 at 2002, Until Discontinued, Nausea, Vomiting oxyCODONE-acetaminophen (PERCOCET) 5-325 MG per tablet 1 tablet Mg/kg dosing is based on the oxycodone component., 1 tablet, Oral, EVERY 4 HOURS PRN, Starting on Mon07/26/22 at 1054, Until Discontinued, Pain Severe (7-10), Maximum dose of acetaminophen is 4000 mg from all sources in 24 hours. 1101 (Given - Provid er: Tesha Boggs RN) polyethylene glycol (GLYCOLAX) packet 17 g 17 g, Oral, DAILY PRN, Starting on Mon07/25/22 at 2002, Until Discontinued, Constipation, First line therapy for constipation potassium bicarb-citric acid (EFFER-K) effervescent tablet 40 mEq(Linked Group 3) 40 mEq, Oral, PRN, Starting on Mon07/25/22 at 2002, Until Discontinued, Per Potassium Replacement Protocol, Administer as alternative if patient unable to tolerate oral tablet. K Lab Replacement Action 3.1 to 3.5 40 mEq ORAL x 1 Under 3.1 Refer to IV replacement protocol Recheck K level in AM. Protocol not for use in patients with CrCl less than 30 mL/min. Do not chew or crush. Dissolve flavored tablets completely in 3 to 4 ounces of cold water; unflavored tablets may be dissolved in 3 to 4 ounces of cold juice. Patient to sip slowly over a 5 to 10 minute period. May further dilute if GI adverse effects occur. potassium chloride (KLOR-CON M) extended release tablet 40 mEq(Linked Group 3) 40 mEq, Oral, PRN, Starting on Mon07/25/22 at 2002, Until Discontinued, Potassium Replacement, May give alternative linked oral order (ordered as effervescent, packet, or liquid solution) if patient unable to tolerate tablet. K Lab Replacement Action 3.1 to 3.5 40 mEq ORAL x 1 Under 3.1 Refer to IV replacement protocol Recheck K level in AM. Protocol not for use in patients with CrCl less than 30 mL/min. potassium chloride 10 mEq/100 mL IVPB (Peripheral Line)(Linked Group 3) For doses greater than 10 mEq, change frequency to every one hour for x number of doses., 10 mEq, IntraVENous, PRN, Starting on Mon07/25/22 at 2002, Until Discontinued, at 100 mL/hr, Potassium Replacement, K Lab Replacement Action 2.7 to 3.0 10 mEq IVPB x 6 doses (60 mEq Total) Under 2.7 CALL PROVIDER and administer 10 mEq IVPB x 6 doses (60 mEq Total) Infuse at 10 mEq/hr. Repeat Potassium lab 1 hour after final administration. Protocol not for use in patients with CrCl less than 30 mL/min. sodium chloride flush 0.9 % injection 5-40 mL 5-40 mL, IntraVENous, PRN, Starting on Mon07/25/22 at 2002, Until Discontinued, Line Care, After every IV line use, For Line Patency: Peripheral IV = 5 mL; Midline or Central Line = 10 mL/lumen. If following IV push medication, administer flush at same rate as the IV push. Flush volume is determined by type of infusion therapy being given. For non-viscous solutions use: Peripheral IV = 5 mL Midline or Central Line = 10 mL/lumen For viscous solutions (i.e. blood components, parenteral nutrition, contrast media, or after obtaining blood sample) use: Peripheral IV = 10 mL Midline or Central Line = 20 mL/lumen Linked Groups Order Group 1: acetaminophen (TYLENOL) tablet 650 mgJump to med 650 mg, Oral, EVERY 6 HOURS PRN, Starting on Mon07/25/22 at 2002, Until Discontinued, Pain Mild (1-3), Fever, For temp greater than 100.4 F (38 C)
Maximum dose of acetaminophen is 4000 mg from all sources in 24 hours.
Or acetaminophen (TYLENOL) suppository 650 mgJump to med 650 mg, Rectal, EVERY 6 HOURS PRN, Starting on Mon07/25/22 at 2002, Until Discontinued, Pain Mild (1-3), Fever, For temp greater than 100.4 F (38 C)
Administer if oral route cannot be used.
Group 2: dextrose bolus 10% 125 mLJump to med 125 mL, IntraVENous, at 937.5 mL/hr, Administer over 8 Minutes, PRN, Other, Blood glucose 40 - 69 mg/dL and patient NOT ALERT or NPO, Starting on Mon07/26/22 at 1229
Repeat blood glucose in 15 minutes. If blood glucose remains LESS THAN 70 mg/dL, repeat treatment and recheck blood glucose in 15 minutes x 2. If using glycemic management system, dose as instructed per system. If blood glucose remains LESS THAN 70 mg/dL after 2 intravenous boluses start dextrose 10% at 100 mL/hour and notify provider.
Or dextrose bolus 10% 250 mLJump to med 250 mL, IntraVENous, at 937.5 mL/hr, Administer over 16 Minutes, PRN, Other, Blood glucose LESS THAN 40 mg/dL and patient NOT ALERT or NPO, Starting on Mon07/26/22 at 1229
Repeat blood glucose in 15 minutes. If blood glucose remains LESS THAN 70 mg/dL, repeat treatment and recheck blood glucose in 15 minutes x 2. If using glycemic management system, dose as instructed per system. If blood glucose remains LESS THAN 70 mg/dL after 2 intravenous boluses start dextrose 10% at 100 mL/hour and notify provider.
Group 3: potassium chloride (KLOR-CON M) extended release tablet 40 mEqJump to med 40 mEq, Oral, PRN, Starting on Mon07/25/22 at 2002, Until Discontinued, Potassium Replacement
May give alternative linked oral order (ordered as effervescent, packet, or liquid solution) if patient unable to tolerate tablet. K Lab Repla cemen t Action 3.1 to 3.5 40 mEq ORAL x 1 Under 3.1 Refer to IV replacement protocol Recheck K level in AM. Protocol not for use in patients with CrCl less than 30 mL/min.
Or potassium bicarb-citric acid (EFFER-K) effervescent tablet 40 mEqJump to med 40 mEq, Oral, PRN, Starting on Mon07/25/22 at 2002, Until Discontinued, Per Potassium Replacement Protocol
Administer as alternative if patient unable to tolerate oral tablet. K Lab Repla cemen t Action 3.1 to 3.5 40 mEq ORAL x 1 Under 3.1 Refer to IV replacement protocol Recheck K level in AM. Protocol not for use in patients with CrCl less than 30 mL/min. Do not chew or crush. Dissolve flavored tablets completely in 3 to 4 ounces of cold water; unflavored tablets may be dissolved in 3 to 4 ounces of cold juice. Patient to sip slowly over a 5 to 10 minute period. May further dilute if GI adverse effects occur.
Or potassium chloride 10 mEq/100 mL IVPB (Peripheral Line)Jump to med For doses greater than 10 mEq, change frequency to every one hour for x number of doses.
10 mEq, IntraVENous, PRN, Starting on Mon07/25/22 at 2002, Until Discontinued, at 100 mL/hr, Potassium Replacement
K Lab Replacement Action 2.7 to 3.0 10 mEq IVPB x 6 doses (60 mEq Total) Under 2.7 CALL PROVIDER and administer 10 mEq IVPB x 6 doses (60 mEq Total) Infuse at 10 mEq/hr. Repeat Potassium lab 1 hour after final administration. Protocol not for use in patients with CrCl less than 30 mL/min.
Care Teams (unrecognized sec tion and content) Jig Operator Relationship Specialty Start Date End Date Garry Ramos MD [address] [place] [id number] [phone] PCP - [facility] 07/22/22 Jig Operator Relationship Specialty Start Date End Date Garry Ramos MD [address] [place] [id number] [phone] PCP - [facility] 07/22/22 FOR RECORDS PERTAINING TO PATIENTS WHO ARE OR HAVE BEEN ENROLLED IN A CHEMICAL DEPENDENCY/SUBSTANCEABUSE PROGRAM, SOME INFORMATION MAY BE OMITTED. This clinical summary was aggregated from multiple sources. Caution should be exercised in using it in the provision of clinical care. This summary normalizes information from multiple sources, and as a consequence, information in this document may materially change the coding, format and clinical context of patient data. In addition, data may be omitted in some cases. CLINICAL DECISIONS SHOULD BE BASED ON THE PRIMARY CLINICAL RECORDS. [facility] [employer] [facility]. provides no warranty or guarantee of the accuracy or completeness of information in this document.
[2023-12-28 08:41] LABS: Estimated GFR (African America 35 (>=60); Estimated GFR (Non-African Ame 29 (>=60)
--- NOTE | 2023-12-28 09:46 | CT_ITS ---
The [address] [address] Patient Name: ASA CHEN MRN: [id number] date: 1970 Sex: F Assigned Patient Location: LAB Current Patient Location: LAB Accession/Order Number: [id number] Exam Date: 12/28/2023 09:40 Report Date: 12/28/2023 10:12 At the request of: GARRY RAMOS Procedure: CT abdomen pelvis wo con EXAM: CT abdomen pelvis wo con HISTORY: Acute Abdominal Pain R10.0 COMPARISON: CT abdomen and pelvis 07/18/2022. TECHNIQUE: Axial soft tissue windows of the abdomen and pelvis with coronal and sagittal reformats. CT dose reduction technique was used including Automated Exposure Control. Findings: Lack of intravenous contrast limits evaluation. ABDOMEN: There is fatty infiltration of the liver. The gallbladder, spleen, pancreas, and adrenal glands are unremarkable. The left kidney is surgically absent. Mild right nonspecific perinephric fat stranding. No right-sided renal stones or collecting system dilatation. The right ureter is nondilated. The bowel is unremarkable without evidence of wall thickening or obstruction. The appendix is nondilated definitely identified. The aorta is normal caliber. Mild atherosclerotic disease. No enlarged abdominal lymph nodes or free abdominal fluid. Pelvis: Unremarkable bladder. The uterus is surgically absent. No enlarged pelvic lymph nodes or free pelvic fluid. No aggressive sclerotic or lytic osseous. Mild multilevel degenerative lumbar spondylosis CT/CT abdomen pelvis wo con IMPRESSION: 1. Surgically absent left kidney. 2. No right-sided renal stones or collecting system dilatation 3. Fatty liver. Electronically authenticated by: MAGGY LAKE Date: 12/28/2023 10:12
== END 2023-12-28 08:12 | disposition home or self-care (01) ==
LOC: LAB 08:12
PROVIDERS: PCP Family Medicine; Visit Provider Family Medicine
DX: Z01.818 Encounter for other preprocedural examination (principal); R10.0 Acute abdomen; N18.4 Chronic kidney disease, stage 4 (severe); R10.9 Unspecified abdominal pain
CPT/HCPCS: 36415; 74176; 82565

== ENCOUNTER 2024-05-02 20:36 | Observation (INO) | payer OTHER, SELFPAY ==
--- OUTSIDE RECORDS SUMMARY | 2024-05-02 20:43 | XMS_ITS ---
Patient Summarization (C-CDA 2.1 CCD) Created on: May 02, 2024 ASA THOMPSON : 1970 Sex: Female Author Organization Sample organization Care Team Providers Care Lug Loader Name Role Phone GARRY RAMOS Referring Unavailable GARRY RAMOS Primary Care Unavailable SHOLA VILLAFUERTE Attending Unavailable SHOLA VILLAFUERTE Admitting Unavailable Garry Ramos MD Primary Care Provider [phone] CHRISTI CHANCE Referring Unavailable GARRY RAMOS Primary Care Unavailable GARRY RAMOS Primary Care Unavailable ROBERT GARCIA Consulting Unavailable PALOAM ARCEO Admitting Unavailable PALOMA ARCEO Attending Unavailable [...] Admitting Unavailable EKWENNA, OBI Attending Unavailable RICHARD ., DR CASTAÑEDA Attending Unavailable HOY ., DR CASTAÑEDA Admitting Unavailable HOY ., DR CASTAÑEDA Primary Care Unavailable HOY ., DR CASTAÑEDA Admitting Unavailable HOY ., DR CASTAÑEDA Primary Care Unavailable HOY ., DR CASTAÑEDA Attending Unavailable HOY ., DR CASTAÑEDA Attending Unavailable HOY ., DR CASTAÑEDA Admitting Unavailable HOThai ., DR CASTAÑEDA Primary Care Unavailable RICHARD ., DR CASTAÑEDA Consulting Unavailable BAKHOUS, AZIZ [...] Morphine; Translations: [MORPHINE] Drug Allergy 9 [facility] Penicillins (antibiotic) (1 source) Penicillin; Translations: [PENICILLIN] Drug Allergy 9 [facility] (3 sources) HYDROmorphone; Translations: [HYDROMORPHONE] Drug Allergy 0 [employer] (4 sources) Morphine; Translations: [MORPHINE] Drug Allergy 2 [employer] [facility] [employer] Work Phone: (5 sources) Penicillins; Translations: [PENICILLINS] Propensity to adverse reactions to drug 9 Anaphylaxis [facility] [employer] (2 sources) Ciprofloxacin Drug Allergy 6 Hives [employer] (1 source) penicillAMINE Drug Allergy [facility] [employer] Other (2 sources) Ciprofloxacin Drug Allergy 6 [facility] (1 source) HYDROmorphone Drug Allergy [facility] (2 sources) Morphine Drug Allergy 9 [facility] Encounters Encounter Date Encounter Type Care Provider Facility Start: 03-10-2023 End: 03-11-2023 ambulatory AZIZ BAKHOUS Facility:H1 Start: 01-03-2023 ambulatory AZIZ BAKHOUS Facility:H 1 Start: 12-28-2022 End: 12-29-2022 ambulatory AZIZ BAKHOUS Facility:H1 Start: 12-27-2022 End: 12-27-2022 ambulatory Aziz Bakhous Other [employer] Other Start: 12-27-2022 Office [facility] Neph[facility] Lukas Start: 12-01-2022 End: 12-02-[address] GARRY RAMOS . Facility:H1 Start: 11-26-2022 End: 11-26-[address] GARRY RAMOS . Facility:[facility]1 Start: 11-25-2022 End: 11-26-[address] GARRY RAMOS . Facility:H1 Start: 11-11-2022 ambulatory OBI [facility] Start: 10-26-2022 End: 10-27-2022 Evaluation and management of inpatient OBI [facility] Start: 10-20-2022 ambulatory [facility] Start: 10-13-2022 ambulatory [facility] Start: 10-13-2022 ambulatory [facility] Start: 09-27-2022 End: 09-28-2022 ambulatory [facility] Start: 09-27-2022 End: 09-27-2022 ambulatory [facility] Start: 09-23-[address] GARRY RAMOS . Facili ty:H1 Start: 09-22-2022 End: 09-23-[address] [facility] Start: 09-12-2022 End: 09-12-[address] GARRY RAMOS . Facility:H1 Start: 08-18-[address] [facility] Start: 08-17-2022 End: 08-17-2022 ambulatory LUTHER TESFAYE [facility] Start: 08-05-2022 End: 08-08-2022 ambulatory [facility] Start: 07-25-2022 End: 07-26-2022 ambulatory GARRY Cantor Thai [facility] Start: 07-25-2022 End: 07-26-2022 Emergency department patient visit Bishnu Horner MD Work Phone: [facility] 3C Observation Comment on above: Nephrostomy complica tion (HCC) (Primary Dx) Start: 07-18-2022 End: 07-22-2022 Evaluation and management of inpatient CHINO DEMPSEY [facility] Start: 07-18-2022 End: 07-22-2022 Evaluation and management of inpatient Aime Bird MD [facility] 5C Stepdown Comment on above: Kidney stone (Primar y Dx); Acute pyelonephritis; Left renal atrophy; Staghorn renal calculus; OMAR (acute kidney injury) (HCC) Start: 07-18-2022 End: 07-18-[address] GARRY RAMOS . Facility:H1 Start: 04-15-2022 End: 04-16-[address] GARRY RAMOS . Facility:H1 Start: 04-01-[address] GARRY RAMOS . Facili ty:H1 Start: 02-15-2019 End: 02-22-2019 ambulatory GARRY RAMOS Facility:[facility] Goals Date Patient Goal Desired Activity /State Immunizations Immunization Date Immunization Notes Care Provider Rick mcginnis 08-19-2016 tetanus toxoid, reduced diphtheria toxoid, and acellular pertussis vaccine, adsorbed Aziz Bakhous Other [employer] Other Medications Current Medications Medication Drug Class(es) Dates [...] IMES DAILY WITH MEALS, First dose on Mon07/18/22 at 1815, Until Discontinued Medium Dose Corrective [...] % injection 5-40 mL Start: 07-20-2022 End: 09-14-2022 0.9 % sodium chloride bolus Start: 07-18-2022 [...] Start: 03-21-2020 take 2 tablets by mo [facility] every twelve hours Gabapentin 600 MG 2 [...] source) Corticosteroid Start: 07-16-2016 Depo-Medrol 40 mg 10 Jul, 2016 60 mg 2 ml midazolam 1 mg/ml injection (1 source) Benzodiazepine Start: 07-19-2022 End: 07-19-2022 midazolam PF (VERSED) injection 2 ml ondansetron 2 mg/ml injection (1 source) Serotonin-3 Receptor Antagonist Start: 07-25-2022 4 mg, IntraVENous, EVERY 4 HOURS PRN, Starting on Mon07/25/22 at 2002, Until Discontinued, Nausea, Vomiting polyethylene glycol 3350 23742 mg powder for oral solution (2 sources) Osmotic Laxative Start: 07-25-2022 17 g, Oral, DAILY PRN, Starting on Mon07/25/22 at 2002, Until Discontinued, Constipation First line therapy for [...] in dextrose 5 % 100 mL IVPB Payers Date Payer Category Payer Unknown [id number] 2.16.8 [id number] 1970 Unknown [id number] 2.16.8 [id number] 1970 Unknown [id number] 2.16. [id number] 1970 Unknown [id number] 2.16. [id number] 1970 Unknown [id number] 2.16.84 [id number] 1970 Unknown [id number] 2.16.84 [id number] 1970 Unknown [id number] 2.16.84 [id number] 1970 Unknown [id number] 2.16.84 [id number] 1970 Unknown [id number] 2.16.84 [id number] 1970 Unknown [id number] 2.16.84 [id number] 1970 Unknown [id number] 2.16.84 [id number] 1971 Unknown [id number] 2.16.84 [id number] 1971 Unknown [id number] 2.16.84 [id number] 1971 Unknown [id number] 2.16.84 [id number] 1971 Unknown [id number] 2.16.84 [id number] 1958 Self-pay [id number] 1958 Unknown [id number] 1958 Unknown [id number] Self-pay Self Pay [id number] Unknown [id number] Plan of Treatment Date Care Activity Detail Author Start: 08-23-2022 End: 08-23-2022 Patient encounter procedure 08/23/2022 Office Visit Infectious Diseases Urban Noriega MD [address] [place] [address] [facility] Start: 08-03-2022 End: 07-20-2023 NM KIDNEY W FLOW AND FUNCTION W PHARMACOLOGICAL INTERVENTION NM KIDNEY W FLOW AND FUNCTION W PHARMACOLOGICAL INTERVENTION Imaging Routine Left renal atrophy Staghorn renal calculus Expected: 08/03/2022, Expires: 07/20/2023 [employer] Phone: Comment on above: Expected: 08/03/2022 , Expires: 07/20/2023 Start: 07-29-2022 End: 07-22-2023 Basic metabolic 2000 panel - Serum or Plasma Basic Metabolic Panel Lab Routine OMAR (acute kidney injury) (HCC) Expected: 07/29/2022, Expires: 07/22/2023 [employer] Phone: Comment on above: Expected: 07/29/2022 , Expires: 07/22/2023 Start: 07-07-2022 Influenza vaccination Flu vaccine (# 1) [facility] [employer] Start: 2021 Screening for malign ant neoplasm of breast Breast cancer screen [facility] [employer] Start: 2021 Shingles vaccine (1 of 2) Shingles vaccine (1 of 2) [facility] [employer] Start: 2016 Screening for malign ant neoplasm of colon [facility] [employer] Start: 2001 Screening for malign ant neoplasm of cervix [facility] [employer] Start: 1992 Screening for malign ant neoplasm of cervix Pap smear [facility] [employer] Start: 1990 DTaP/Tdap/Td vaccine (1 - Tdap) DTaP/Tdap/Td vaccine (1 - Tdap) [facility] Start: 1990 Hepatitis B vaccine (1 of 3 - Risk 3-dose series) Hepatitis B vaccine (1 of 3 - Risk 3-dose series) [facility] [employer] Start: 1989 Diabetic retinal exam Diabetic retin al exam [facility] [employer] Start: 1989 Urine screening for protein Diabetic microalbuminuria test [facility] [employer] Start: 1986 HIV screening HIV screen [facility] [employer] Start: 1983 Depression Monitoring Depression Mon itoring [facility] Start: 1981 Diabetic foot examination Diabetic foot exam [facility] [employer] Start: 1981 Hemoglobin A1c measurement A1C test (Diabetic or Prediabetic) [facility] [employer] Start: 1981 Lipid panel Lipids [facility] [employer] Start: 1977 Pneumococcal 0-64 ye ars Vaccine (1 - PCV) Pneumococcal 0-64 years Vaccine (1 - PCV) [facility] Start: 03-26-1972 COVID-19 Vaccine (#1) COVID-19 Vacci ne (#1) [facility] [employer] End: 08-01-2022 Basic Metabolic Panel w/ Reflex to MG Basic Metabolic Panel w/ Reflex to MG Lab Routine Daily for 14 Occurrences starting 07/19/2022 until 08/01/2022, 3 completed [facility] [employer] Work Phone: Comment on above: Daily for 14 Occurre nces starting 07/19/2022 until 08/01/2022, 3 completed Culture, Blood 1 [employer] Phone: Culture, Blood 1 Culture, Blood 1 Microbiology STAT 07/20/2022 4:26 AM EDT [employer] Phone: Culture, Blood 1 [employer] Phone: Culture, Blood 2 Culture, Blood 2 Microbiology STAT 07/20/2022 4:26 AM EDT [employer] Phone: Glucose [Mass/volume ] in Serum or Plasma [employer] Phone: Comment on above: 4X Daily (AC & HS) u ntil discontinued starting 07/18/2022, 1 completed As Needed until disc ontinued starting 07/18/2022 Glucose [Mass/volume ] in Serum or Plasma POCT Glucose Point of Care Testing STAT As Needed until discontinued starting 07/26/2022 [employer] Phone: Comment on above: As Needed until disc ontinued starting 07/26/2022 Oxygen therapy [Mini mum Data Set] Initiate Oxygen Therapy Protocol Respiratory Care Routine As Needed until discontinued starting 07/18/2022 [employer] Phone: Comment on above: As Needed until disc ontinued starting 07/18/2022 Oxygen therapy [Mini mum Data Set] Initiate Oxygen Therapy Protocol Respiratory Care Routine Daily until discontinued starting 07/25/2022 [employer] Phone: Comment on above: Daily until disconti nued starting 07/25/2022 Problems Active Problems Problem Classification Problem Date [...] disease (1 source) Atherosclerotic heart disease of [place] coronary artery without angina pectoris; Translations: [ASHD QAGAN TAYAGUNGIN CA W/O ANGINA PECTORIS] Onset: 2 Chronic [...] aftercare (3 sources) Patient encounter status; Translations: [alf (current) use of non-steroidal anti-inflammatories (NSAID)] Onset: [...] Onset: 04-15-2022 Episodic Other aftercare (1 source) 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; Translations: [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 USE OF ASPIRIN] Onset: 07-20-2022 Episodic Other aftercare (1 source) Other custodial (current) drug therapy; Translations: [OTH 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 DRUG THERAPY] Onset: 07-20-2022 Episodic Other aftercare (1 source) 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 representative (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) use of oral hypoglycemic drugs; Translations: [INTERNAL REVENUE SERVICE AGENT USE ORAL HYPOGLYCEMIC DX] Onset: 07-20-2022 Episodic [...] pyelonephritis; Translations: [Acute pyelonephritis] Onset: 07-19-2022 Episodic Procedures Date Procedure Procedure Detail Performing Clinician Start: 07-26-2022 Glucose blood reagent strip Paloma Arceo MD Work Phone: Start: 07-26-2022 Remove int dwell ure teral stent transurethral Paloma Arceo MD Work Phone: Start: 07-26-2022 Prothrombin time Oscar Martinez DO Work Phone: Start: 07-25-2022 Radiologic exam abdo men 1 view Oscar Martinez DO Work Phone: Start: 07-22-2022 Glucose blood [...] Start: 07-21-2022 End: 07-21-2022 Assay of lactate Previni Ferrari MD Work Phone: Start: 07-21-2022 BASIC [...] Work Phone: Start: 07-20-2022 Assay of lactate Lisa Ferrari MD Work Phone: Start: 07-20-2022 Glucose [...] Start: 07-19-2022 End: 07-19-2022 Prothrombin time Christi Robson DO Work Phone: Start: 07-19-2022 BASIC METABOLIC [...] difrntl wbc Brooke Ennis MD Work Phone: Results Test Name Value Interpretation Reference Range Facility PTH INTACTon 03-11-2023 PTH, Intact 31 pg/mL Normal 15-65 [facility] Comment on above: Performed By: #### U MICRO, ERUR #### [facility] [address] [address] [address] Delmer Rea FERRITINon 03-10-2023 Ferritin [Mass/Vol] 35.0 ng/mL Normal 8.0-252.[address] [facility] Comment on above: Performed By: #### L IPA, DLDL, CON, LIPID, T7, CMP, TSH #### [facility] [address] [address] [address] Delmer Rea HEMOGRAM AND PLATELon 2022 Hematocrit (Bld) [Volume fraction] 35.5 % Critically low 36.0-48.0 [facility] Comment on above: Performed By: #### L IPA, DLDL, CON, LIPID, T7, CMP, TSH #### [facility] [address] [place] [address] Dr. Delmer Rea Hemoglobin (Bld) [Mass/Vol] 11.6 g/dL Critically low 12.0-16.0 [facility] Comment on above: Performed By: #### L IPA, DLDL, CON, LIPID, T7, CMP, TSH #### [facility] [address] [place] [address] Dr. Delmer Rea MCH (RBC) [Entitic mass] 27.3 pg Normal 26.7-34.0 [facility] Comment on above: Performed By: #### L IPA, DLDL, CON, LIPID, T7, CMP, TSH #### [facility] [address] [place] [address] Dr. Delmer Rea MCHC (RBC) [Mass/Vol] 32.7 g/dL Normal 29.9-35.2 [facility] Comment on above: Performed By: #### L IPA, DLDL, CON, LIPID, T7, CMP, TSH #### [facility] [address] [place] [address] Dr. Delmer Rea MCV (RBC) [Entitic vol] 83.5 fL Normal 81.0-99.0 [facility] Comment on above: Performed By: #### L IPA, DLDL, CON, LIPID, T7, CMP, TSH #### [facility] [address] [place] [address] Dr. Delmer Rea PLT 273 103/ul Normal 150-450 [facility] Comment on above: Performed By: #### L IPA, DLDL, CON, LIPID, T7, CMP, TSH #### [facility] [address] [place] [address] Dr. Delmer Rea RBC 4.25 106/ul Normal 4.20-5.40 [facility] Comment on above: Performed By: #### L IPA, DLDL, CON, LIPID, T7, CMP, TSH #### [facility] [address] [address] [address] Delmer Rea WBC 5.5 103/ul Normal 4.0-11.0 [facility] Comment on above: Performed By: #### L IPA, DLDL, CON, LIPID, T7, CMP, TSH #### [facility] [address] [address] [address] Delmer Rea IRON AND TIBCon 03-10-2023 % SATURATION 13.6 % Normal [facility] Comment on above: Performed By: #### L IPA, DLDL, CON, LIPID, T7, CMP, TSH #### [facility] [address] [place] [address] Dr. Delmer Rea Iron [Mass/Vol] 61.0 ug/dL Normal 50.0-170.0 [facility] Comment on above: Performed By: #### L IPA, DLDL, CON, LIPID, T7, CMP, TSH #### [facility] [address] [place] [address] Dr. Delmer Rea TIBC DIRECT 447.0 ug/dL Normal 250.0-450.0 [facility] Comment on above: Performed By: #### L IPA, DLDL, CON, LIPID, T7, CMP, TSH #### [facility] [address] [place] [address] Dr. Delmer Rea MAGNESIUMon 03-10-2023 Magnesium [Mass/Vol] 1.7 mg/dL Critically low 1.8-2.4 [facility] Comment on above: Performed By: #### L IPA, DLDL, CON, LIPID, T7, CMP, TSH #### [facility] [address] [address] [address] Delmer Rea PHOSPHORUSon 03-10-2023 Phosphate [Mass/Vol] 4.9 mg/dL Critically high 2.6-4.7 [facility] Comment on above: Performed By: #### L IPA, DLDL, CON, LIPID, T7, CMP, TSH #### [facility] [address] [place], [place] [id number] Dr. Delmer Rea PROF 14(COMP METB)on 023 Albumin [Mass/Vol] 3.4 g/dL Normal 3.4-5.0 [facility] Comment on above: Performed By: #### L IPA, DLDL, CON, LIPID, T7, CMP, TSH #### [facility] [address] [place] [address] Dr. Delmer Rea Albumin/Globulin [Mass ratio] 0.8 {ratio} Normal [facility] Comment on above: Performed By: #### L IPA, DLDL, CON, LIPID, T7, CMP, TSH #### [facility] [address] [place] [address] Dr. Delmer Rea ALP [Catalytic activity/Vol] 102 U/L Normal 46-116 [facility] Comment on above: Performed By: #### L IPA, DLDL, CON, LIPID, T7, CMP, TSH #### [facility] [address] [place] [address] Dr. Delmer Rea ALT [Catalytic activity/Vol] 28 U/L Normal 14-59 [facility] Comment on above: Performed By: #### L IPA, DLDL, CON, LIPID, T7, CMP, TSH #### [facility] [address] [place] [address] Dr. Delmer Rea Anion gap [Moles/Vol] 15.1 mmol/L Normal [facility] Comment on above: Performed By: #### L IPA, DLDL, CON, LIPID, T7, CMP, TSH #### [facility] [address] [place] [address] Dr. Delmer Rea AST [Catalytic activity/Vol] 16 U/L Normal 15-37 [facility] Comment on above: Performed By: #### L IPA, DLDL, CON, LIPID, T7, CMP, TSH #### [facility] [address] [place] [address] Dr. Delmer Rea Bilirubin [Mass/Vol] 0.5 mg/dL Normal 0.2-1.0 [facility] Comment on above: Performed By: #### L IPA, DLDL, CON, LIPID, T7, CMP, TSH #### [facility] [address] [address] [address] Delmer Rea Calcium [Mass/Vol] 9.5 mg/dL Normal 8.5-10.1 [facility] Comment on above: Performed By: #### L IPA, DLDL, CON, LIPID, T7, CMP, TSH #### [facility] [address] [address] [address] Delmer Rea Chloride [Moles/Vol] 100 mmol/L Normal 98-107 [facility] Comment on above: Performed By: #### L IPA, DLDL, CON, LIPID, T7, CMP, TSH #### [facility] [address] [address] [address] Delmer Rea CO2 [Moles/Vol] 23.4 mmol/L Normal 21.0-32.0 [facility] Comment on above: Performed By: #### L IPA, DLDL, CON, LIPID, T7, CMP, TSH #### [facility] [address] [address] [address] Delmer Rea Creatinine [Mass/Vol] 1.86 mg/dL Critically high 0.55-1.02 [facility] Comment on above: Performed By: #### L IPA, DLDL, CON, LIPID, T7, CMP, TSH #### [facility] [address] [address] [address] Delmer Rea EGFR-AF [place] 35 mL/min/1.73m2 Critically low >=60 [facility] Comment on above: Performed By: #### L IPA, DLDL, CON, LIPID, T7, CMP, TSH #### [facility] [address] [address] [address] Delmer Rea EGFR-NON AF [place]IAN 29 mL/min/1.73m2 Critically low >=60 [facility] Comment on above: Performed By: #### L IPA, DLDL, CON, LIPID, T7, CMP, TSH #### [facility] [address] [address] [address] Delmer Rea Globulin (S) [Mass/Vol] 4.3 g/dL Normal [facility] Comment on above: Performed By: #### L IPA, DLDL, CON, LIPID, T7, CMP, TSH #### [facility] [address] [place] [address] Dr. Delmer Rea Glucose [Mass/Vol] 197 mg/dL Critically high 74-106 T [facility] Comment on above: Performed By: #### L IPA, DLDL, CON, LIPID, T7, CMP, TSH #### [facility] [address] [place] [address] Dr. Delmer Rea Potassium [Moles/Vol] 4.5 mmol/L Normal 3.5-5.1 [facility] Comment on above: Performed By: #### L IPA, DLDL, CNO, LIPID, T7, CMP, TSH #### [facility] [address] [place] [address] Dr. Delmer Rea Protein [Mass/Vol] 7.7 g/dL Normal 6.4-8.2 [facility] Comment on above: Performed By: #### L IPA, DLDL, CON, LIPID, T7, CMP, TSH #### [facility] [address] [place] [address] Dr. Delmer Rea Sodium [Moles/Vol] 134 mmol/L Critically low 136-145 Th [facility] Comment on above: Performed By: #### L IPA, DLDL, CON, LIPID, T7, CMP, TSH #### [facility] [address] [place] [address] Dr. Delmer Rea Urea nitrogen [Mass/Vol] 40.0 mg/dL Critically high 7.0-18.0 [facility] Comment on above: Performed By: #### L IPA, DLDL, CON, LIPID, T7, CMP, TSH #### [facility] [address] [place] [address] Dr. Delmer Rea Urea nitrogen/Creatinine [Mass ratio] 21.5 mg/mg Normal [facility] Comment on above: Performed By: #### L IPA, DLDL, CON, LIPID, T7, CMP, TSH #### [facility] [address] [place] [address] Dr. Delmer Rea URIC ACID SERUMon 03-10-2023 Urate [Mass/Vol] 7.1 mg/dL Critically high 2.6-6.0 [facility] Comment on above: Performed By: #### L IPA, DLDL, CON, LIPID, T7, CMP, TSH #### [facility] [address] [address] [address] Delmer Rea VIT B12 AND FOLATEon 023 Cobalamin (Vitamin B12) [Mass/Vol] 369.0 pg/mL Normal 193.0-986.0 [facility] Comment on above: Performed By: #### L IPA, DLDL, CON, LIPID, T7, CMP, TSH #### [facility] [address] [address] [address] Delmer Rea FOLATE 20.30 ng/mL Normal 8.60-58.90 [facility] Comment on above: Performed By: #### L IPA, DLDL, CON, LIPID, T7, CMP, TSH #### [facility] [address] [address] [address] Delmer Rea VITAMIN D 25 OHon 03-10-2023 VIT D 25-OH 13.0 ng/mL Normal [facility] Comment on above: Performed By: #### L IPA, DLDL, CON, LIPID, T7, CMP, TSH #### [facility] [address] [address] [address] Delmer Rea VIT D RANGES SEE BELOW Normal [facility] Comment on above: Result Comment: <20 ng/mL Vit D deficient 20 - <30 ng/mL Vit D insufficient 30 - 100 ng/mL Vit D sufficient >100 ng/mL Potential Toxicity Performed By: #### L IPA, DLDL, CON, LIPID, T7, CMP, TSH #### [facility] [address] [place] [address] Dr. Delmer Rea 36on 02-02-2023 36 02/02/23 mailed lette r asking patient to contact office to reschedule appointment due to provider ([place]ubia) out of office-[facility] PROF 14(COMP METB)on 023 Albumin [Mass/Vol] 3.4 g/dL Normal 3.4-5.0 [facility] Comment on above: Performed By: #### L IPA, DLDL, CON, LIPID, T7, CMP, TSH #### [facility] [address] [address] [address] Delmer Rea Albumin/Globulin [Mass ratio] 0.9 {ratio} Normal [facility] Comment on above: Performed By: #### L IPA, DLDL, CON, LIPID, T7, CMP, TSH #### [facility] [address] [address] [address] Delmer Rea ALP [Catalytic activity/Vol] 95 U/L Normal 46-116 [facility] Comment on above: Performed By: #### L IPA, DLDL, CON, LIPID, T7, CMP, TSH #### [facility] [address] [place] [address] Dr. Delmer Rea ALT [Catalytic activity/Vol] 23 U/L Normal 14-59 [facility] Comment on above: Performed By: #### L IPA, DLDL, CON, LIPID, T7, CMP, TSH #### [facility] [address] [address] [address] Delmer Rea Anion gap [Moles/Vol] 15.2 mmol/L Normal [facility] Comment on above: Performed By: #### L IPA, DLDL, CON, LIPID, T7, CMP, TSH #### [facility] [address] [address] [address] Delmer Rea AST [Catalytic activity/Vol] 8 U/L Critically low 15-37 [facility] Comment on above: Performed By: #### L IPA, DLDL, CON, LIPID, T7, CMP, TSH #### [facility] [address] [address] [address] Delmer Rea Bilirubin [Mass/Vol] 0.3 mg/dL Normal 0.2-1.0 [facility] Comment on above: Performed By: #### L IPA, DLDL, CON, LIPID, T7, CMP, TSH #### [facility] [address] [place] [address] Dr. Delmer Rea Calcium [Mass/Vol] 9.2 mg/dL Normal 8.5-10.1 [facility] Comment on above: Performed By: #### L IPA, DLDL, CON, LIPID, T7, CMP, TSH #### [facility] [address] [address] [address] Delmer Rea Chloride [Moles/Vol] 102 mmol/L Normal 98-107 [facility] Comment on above: Performed By: #### L IPA, DLDL, CON, LIPID, T7, CMP, TSH #### [facility] [address] [address] [address] Delmer Rea CO2 [Moles/Vol] 22.6 mmol/L Normal 21.0-32.0 [facility] Comment on above: Performed By: #### L IPA, DLDL, CON, LIPID, T7, CMP, TSH #### [facility] [address] [place] [address] Dr. Delmer Rea Creatinine [Mass/Vol] 1.89 mg/dL Critically high 0.55-1.02 [facility] Comment on above: Performed By: #### L IPA, DLDL, CON, LIPID, T7, CMP, TSH #### [facility] [address] [place] [address] Dr. Delmer Rea EGFR-AF BAHAMIAN 34 mL/min/1.73m2 Critically low >=60 [facility] Comment on above: Performed By: #### L IPA, DLDL, CON, LIPID, T7, CMP, TSH #### [facility] [address] [place] [address] Dr. Delmer Rea EGFR-NON AF BAHAMIAN 28 mL/min/1.73m2 Critically low >=60 [facility] Comment on above: Performed By: #### L IPA, DLDL, CON, LIPID, T7, CMP, TSH #### [facility] [address] [place] [address] Dr. Delmer Rea Globulin (S) [Mass/Vol] 3.9 g/dL Normal [facility] Comment on above: Performed By: #### L IPA, DLDL, CON, LIPID, T7, CMP, TSH #### [facility] [address] [address] [address] Delmer Rea Glucose [Mass/Vol] 257 mg/dL Critically high 74-106 [facility] Comment on above: Performed By: #### L IPA, DLDL, CON, LIPID, T7, CMP, TSH #### [facility] [address] [address] [address] Delmer Rea Potassium [Moles/Vol] 4.8 mmol/L Normal 3.5-5.1 [facility] Comment on above: Performed By: #### L IPA, DLDL, CON, LIPID, T7, CMP, TSH #### [facility] [address] [address] [address] Delmer Rea Protein [Mass/Vol] 7.3 g/dL Normal 6.4-8.2 [facility] Comment on above: Performed By: #### L IPA, DLDL, CON, LIPID, T7, CMP, TSH #### [facility] [address] [address] [address] Delmer Rea Sodium [Moles/Vol] 135 mmol/L Critically low 136-145 [facility] Comment on above: Performed By: #### L IPA, DLDL, CON, LIPID, T7, CMP, TSH #### [facility] [address] [place] [address] Dr. Delmer Rea Urea nitrogen [Mass/Vol] 39.0 mg/dL Critically high 7.0-18.0 [facility] Comment on above: Performed By: #### L IPA, DLDL, CON, LIPID, T7, CMP, TSH #### [facility] [address] [place] [address] Dr. Delmer Rea Urea nitrogen/Creatinine [Mass ratio] 20.6 mg/mg Normal [facility] Comment on above: Performed By: #### L IPA, DLDL, CNO, LIPID, T7, CMP, TSH #### [facility] [address] [place] [address] Dr. Delmer Rea PROF 14(COMP METB)on 023 Albumin [Mass/Vol] 3.5 g/dL Normal 3.4-5.0 [facility] Comment on above: Performed By: #### U MICRO, ERUR #### [facility] [address] [place] [address] Dr. Delmer Rea Albumin/Globulin [Mass ratio] 0.8 {ratio} Normal [facility] Comment on above: Performed By: #### U MICRO, ERUR #### [facility] [address] [address] [address] Delmer Rea ALP [Catalytic activity/Vol] 113 U/L Normal 46-116 [facility] Comment on above: Performed By: #### U MICRO, ERUR #### [facility] [address] [address] [address] Delmer Rea ALT [Catalytic activity/Vol] 23 U/L Normal 14-59 [facility] Comment on above: Performed By: #### U MICRO, ERUR #### [facility] [address] [place] [address] Dr. Delmer Rea Anion gap [Moles/Vol] 15.5 mmol/L Normal [facility] Comment on above: Performed By: #### U MICRO, ERUR #### [facility] [address] [place] [address] Dr. Delmer Rea AST [Catalytic activity/Vol] 15 U/L Normal 15-37 [facility] Comment on above: Performed By: #### U MICRO, ERUR #### [facility] [address] [address] [address] Delmer Rea Bilirubin [Mass/Vol] 0.3 mg/dL Normal 0.2-1.0 [facility] Comment on above: Performed By: #### U MICRO, ERUR #### [facility] [address] [address] [address] Delmer Rea Calcium [Mass/Vol] 9.5 mg/dL Normal 8.5-10.1 [facility] Comment on above: Performed By: #### U MICRO, ERUR #### [facility] [address] [address] [address] Delmer Rea Chloride [Moles/Vol] 104 mmol/L Normal 98-107 [facility] Comment on above: Performed By: #### U MICRO, ERUR #### [facility] [address] [place] [address] Dr. Delmer Rea CO2 [Moles/Vol] 25.1 mmol/L Normal 21.0-32.0 [facility] Comment on above: Performed By: #### U MICRO, ERUR #### [facility] [address] [place] [address] Dr. Delmer Rea Creatinine [Mass/Vol] 1.29 mg/dL Critically high 0.55-1.02 [facility] Comment on above: Performed By: #### U MICRO, ERUR #### [facility] [address] [place] [address] Dr. Delmer Rea EGFR-AF BAHAMIAN 53 mL/min/1.73m2 Critically low >=60 [facility] Comment on above: Performed By: #### U MICRO, ERUR #### [facility] [address] [place] [address] Dr. Delmer Rea EGFR-NON AF BAHAMIAN 44 mL/min/1.73m2 Critically low >=60 [facility] Comment on above: Performed By: #### U MICRO, ERUR #### [facility] [address] [place] [address] Dr. Delmer Rea Globulin (S) [Mass/Vol] 4.2 g/dL Normal [facility] Comment on above: Performed By: #### U MICRO, ERUR #### [facility] [address] [place] [address] Dr. Delmer Rea Glucose [Mass/Vol] 135 mg/dL Critically high 74-106 [facility] Comment on above: Performed By: #### U MICRO, ERUR #### [facility] [address] [place] [address] Dr. Delmer Rea Potassium [Moles/Vol] 4.6 mmol/L Normal 3.5-5.1 [facility] Comment on above: Performed By: #### U MICRO, ERUR #### [facility] [address] [place] [address] Dr. Delmer Rea Protein [Mass/Vol] 7.7 g/dL Normal 6.4-8.2 [facility] Comment on above: Performed By: #### U MICRO, ERUR #### [facility] [address] [place] [address] Dr. Delmer Rea Sodium [Moles/Vol] 140 mmol/L Normal 136-145 [facility] Comment on above: Performed By: #### U MICRO, ERUR #### [facility] [address] [place] [address] Dr. Delmer Rea Urea nitrogen [Mass/Vol] 28.0 mg/dL Critically high 7.0-18.0 [facility] Comment on above: Performed By: #### U MICRO, ERUR #### [facility] [address] [place] [address] Dr. Delmer Rea Urea nitrogen/Creatinine [Mass ratio] 21.7 mg/mg Normal [facility] Comment on above: Performed By: #### U MICRO, ERUR #### [facility] [address] [place] [address] Dr. Delmer Rea H PYLORI ANTIBODY IGGon 11-07 H. PYLORI IGG ABS 4.50 Index Value Critically high 0.00-0. 79 [facility] Comment on above: Result Comment: Nega tive <0.80 Equivocal 0.80 - 0.89 Positive >0.89 Performed By: #### L IPA, DLDL, CON, LIPID, T7, CMP, TSH #### [facility] [address] [place] [address] Dr. Delmer Rea AMYLASEon 11-25-2022 Amylase [Catalytic activity/Vol] 42 U/L Normal 25-115 [facility] Comment on above: Performed By: #### L IPA, DLDL, CON, LIPID, T7, CMP, TSH #### [facility] [address] [place] [address] Dr. Delmer Rea CBC AUTO DIFFon 11-25-2022 BASO # 0.0 103/ul Normal 0.0-0.1 [facility] Comment on above: Performed By: #### U MICRO, ERUR #### [facility] [address] [address] [address] Delmer Rea Basophils/100 WBC (Bld) 0.6 % Normal 0.2-2.0 [facility] Comment on above: Performed By: #### U MICRO, ERUR #### [facility] [address] [place] [address] Dr. Delmer Rea EO # 0.2 103/ul Normal 0.0-0.7 [facility] Comment on above: Performed By: #### U MICRO, ERUR #### [facility] [address] [place] [address] Dr. Delmer Rea Eosinophils/100 WBC (Bld) 3.2 % Normal 0.9-7.0 [facility] Comment on above: Performed By: #### U MICRO, ERUR #### [facility] [address] [place] [address] Dr. Delmer Rea Erythrocyte distribution width (RBC) [Ratio] 13.5 % Normal 11.0-15.0 [facility] Comment on above: Performed By: #### U MICRO, ERUR #### [facility] [address] [place] [address] Dr. Delmer Rea Hematocrit (Bld) [Volume fraction] 28.6 % Critically low 36.0-48.0 [facility] Comment on above: Performed By: #### U MICRO, ERUR #### [facility] [address] [place] [address] Dr. Delmer Rea Hemoglobin (Bld) [Mass/Vol] 10.4 g/dL Critically low 12.0-16.0 [facility] Comment on above: Performed By: #### U MICRO, ERUR #### [facility] [address] [place] [address] Dr. Delmer Rea IG # 0.06 10e3/ul Critically high 0.00-0.03 [facility] Comment on above: Performed By: #### U MICRO, ERUR #### [facility] [address] [place] [address] Dr. Delmer Rea IG % 0.9 % Critically high 0.0-0.5 [facility] Comment on above: Performed By: #### U MICRO, ERUR #### [facility] [address] [place] [address] Dr. Delmer Rea LYMPH # 2.2 103/ul Normal 1.2-3.8 [facility] Comment on above: Performed By: #### U MICRO, ERUR #### [facility] [address] [place] [address] Dr. Delmer Rea Lymphocytes/100 WBC (Bld) 32.2 % Normal 20.5-60.0 [facility] Comment on above: Performed By: #### U MICRO, ERUR #### [facility] [address] [place] [address] Dr. Delmer Rea MANUAL DIFF REQ NO Normal [facility] Comment on above: Performed By: #### U MICRO, ERUR #### [facility] [address] [place] [address] Dr. Delmer Rea MCH (RBC) [Entitic mass] 27.6 pg Normal 26.7-34.0 [facility] Comment on above: Performed By: #### U MICRO, ERUR #### [facility] [address] [place] [address] Dr. Delmer Rea MCHC (RBC) [Mass/Vol] 36.4 g/dL Critically high 29.9-35.2 [facility] Comment on above: Performed By: #### U MICRO, ERUR #### [facility] [address] [place] [address] Dr. Delmer Rea MCV (RBC) [Entitic vol] 75.9 fL Critically low 81.0-99.0 [facility] Comment on above: Performed By: #### U MICRO, ERUR #### [facility] [address] [place] [address] Dr. Delmer Rea MONO # 0.7 103/ul Normal 0.3-0.8 [facility] Comment on above: Performed By: #### U MICRO, ERUR #### [facility] [address] [place] [address] Dr. Delmer Rea Monocytes/100 WBC (Bld) 9.4 % Normal 1.7-12.0 [facility] Comment on above: Performed By: #### U MICRO, ERUR #### [facility] [address] [address] [address] Delmer Rea NEUT # 3.7 103/ul Normal 1.4-6.5 [facility] Comment on above: Performed By: #### U MICRO, ERUR #### [facility] [address] [address] [address] Delmer Rea Neutrophils/100 WBC (Bld) 53.7 % Normal 43.0-75.0 [facility] Comment on above: Performed By: #### U MICRO, ERUR #### [facility] [address] [place] [address] Dr. Delmer Rea Platelet mean volume (Bld) [Entitic vol] 9.4 fL Critically low 9.5-13.5 [facility] Comment on above: Performed By: #### U MICRO, ERUR #### [facility] [address] [place] [address] Dr. Delmer Rea PLT 313 103/ul Normal 150-450 [facility] Comment on above: Performed By: #### U MICRO, ERUR #### [facility] [address] [place] [address] Dr. Delmer Rea RBC 3.77 106/ul Critically low 4.20-5.40 [facility] Comment on above: Performed By: #### U MICRO, ERUR #### [facility] [address] [place] [address] Dr. Delmer Rea WBC 6.9 103/ul Normal 4.0-11.0 [facility] Comment on above: Performed By: #### U MICRO, ERUR #### [facility] [address] [address] [address] Delmer Rea DIRECT LDLon 11-25-2022 Cholesterol in LDL [Mass/Vol] 102 mg/dL Normal [facility] Comment on above: Performed By: #### L IPA, DLDL, CON, LIPID, T7, CMP, TSH #### [facility] [address] [address] [address] Delmer FRANKLIN NORMAL SEE BELOW Normal [facility] Comment on above: Result Comment: <100 mg/dl OPTIMAL 100 - 129 mg/dl NEAR OR ABOVE OPTIMAL 130 - 159 mg/dl BORDERLINE HIGH 160 - 189 mg/dl HIGH >190 mg/dl VERY HIGH Performed By: #### L IPA, DLDL, CON, LIPID, T7, CMP, TSH #### [facility] [address] [address] [address] Delmer Rea FREE THYROXINE INDEX T7on FTI 4.31 Normal 1.30-4.50 [facility] Comment on above: Performed By: #### L IPA, DLDL, CON, LIPID, T7, CMP, TSH #### [facility] [address] [place] [address] Dr. Delmer Rea T3U 35.0 % Normal 30.0-39.0 [facility] Comment on above: Performed By: #### L IPA, DLDL, CON, LIPID, T7, CMP, TSH #### [facility] [address] [place] [address] Dr. Delmer Rea T4 [Mass/Vol] 12.30 ug/dL Normal 4.80-13.90 [facility] Comment on above: Performed By: #### L IPA, DLDL, CON, LIPID, T7, CMP, TSH #### [facility] [address] [place] [address] Dr. Delmer Rea GLYCOHEMOGLOBIN A1Con 2022 ADA RECOMMENDATION SEE BELOW Normal [facility] Comment on above: Result Comment: ADA RECOMMENDED LIMIT 4.0 - 6.0 ADA THERAPEUTIC TARGET < 7.0 ACTION SUGGESTED > 7.0 Performed By: #### U MICRO, ERUR #### [facility] [address] [place] [address] Dr. Delmer Rea Glucose [Mass/Vol] 180 mg/dL Normal [facility] Comment on above: Performed By: #### U MICRO, ERUR #### [facility] [address] [place] [address] Dr. Delmer Rea HbA1c (Bld) [Mass fraction] 7.9 % Critically high 4.5-6.2 [facility] Comment on above: Performed By: #### U MICRO, ERUR #### [facility] [address] [place] [address] Dr. Delmer Rea IRONon 11-25-2022 Iron [Mass/Vol] 35.0 ug/dL Critically low 50.0-170.0 [facility] Comment on above: Performed By: #### L IPA, DLDL, CON, LIPID, T7, CMP, TSH #### [facility] [address] [place] [address] Dr. Delmer Rea LIPASEon 11-25-2022 Lipase [Catalytic activity/Vol] 155.0 U/L Normal 73.0-393.0 [facility] Comment on above: Performed By: #### L IPA, DLDL, CON, LIPID, T7, CMP, TSH #### [facility] [address] [place] [address] Dr. Delmer Rea LIPID PROFILEon 11-25-2022 CHOL-HDL RATIO NORM SEE BELOW Normal [facility] Comment on above: Result Comment: 3.3 - 4.4 LOW RISK 4.4 - 7.1 AVERAGE RISK 7.1 - 11.0 MODERATE RISK >11.0 HIGH RISK Performed By: #### L IPA, DLDL, CON, LIPID, T7, CMP, TSH #### [facility] [address] [place] [address] Dr. Delmer Rea Cholesterol [Mass/Vol] 238 mg/dL Critically high <=200 [facility] Comment on above: Performed By: #### L IPA, DLDL, CON, LIPID, T7, CMP, TSH #### [facility] [address] [address] [address] Delmer Rea Cholesterol in HDL [Mass/Vol] 39 mg/dL Critically low 40-60 [facility] Comment on above: Performed By: #### L IPA, DLDL, CON, LIPID, T7, CMP, TSH #### [facility] [address] [place] [address] Dr. Delmer Rea Cholesterol.total/C holesterol in HDL [Mass ratio] 6.1 {ratio} Normal [facility] Comment on above: Performed By: #### L IPA, DLDL, CON, LIPID, T7, CMP, TSH #### [facility] [address] [address] [address] Delmer Rea HDL NORMAL > or = 60 mg/dl - LO W CARDIOVASCULAR RISK <40 mg/dl - HIGH CARDIOVASCULAR RISK Normal [facility] Comment on above: Performed By: #### L IPA, DLDL, CON, LIPID, T7, CMP, TSH #### [facility] [address] [address] [address] Delmre Rea LDL CALC NORMAL SEE BELOW Normal [facility] Comment on above: Result Comment: <100 mg/dl OPTIMAL 100 - 129 mg/dl NEAR OR ABOVE OPTIMAL 130 - 159 mg/dl BORDERLINE HIGH 160 - 189 mg/dl HIGH >190 mg/dl VERY HIGH Performed By: #### L IPA, DLDL, CON, LIPID, T7, CMP, TSH #### [facility] [address] [address] [address] Delmer Rea Triglyceride [Mass/Vol] 579 mg/dL Critically high <=150 [facility] Comment on above: Performed By: #### L IPA, DLDL, CON, LIPID, T7, CMP, TSH #### [facility] [address] [address] [address] Delmer Rea VLDL CALC 115.8 mg/dL Normal [facility] Comment on above: Performed By: #### L IPA, DLDL, CON, LIPID, T7, CMP, TSH #### [facility] [address] [address] [address] Delmer Rea PROF 14(COMP METB)on 023 Albumin [Mass/Vol] 3.5 g/dL Normal 3.4-5.0 [facility] Comment on above: Performed By: #### L IPA, DLDL, CON, LIPID, T7, CMP, TSH #### [facility] [address] [address] [address] Delmer Rea Albumin/Globulin [Mass ratio] 0.8 {ratio} Normal [facility] Comment on above: Performed By: #### L IPA, DLDL, CON, LIPID, T7, CMP, TSH #### [facility] [address] [address] [address] Delmer Rea ALP [Catalytic activity/Vol] 110 U/L Normal 46-116 [facility] Comment on above: Performed By: #### L IPA, DLDL, CNO, LIPID, T7, CMP, TSH #### [facility] [address] [address] [address] Delmer Rea ALT [Catalytic activity/Vol] 19 U/L Normal 14-59 [facility] Comment on above: Performed By: #### L IPA, DLDL, CON, LIPID, T7, CMP, TSH #### [facility] [address] [place] [address] Dr. Delmer Rea Anion gap [Moles/Vol] 17.0 mmol/L Normal [facility] Comment on above: Performed By: #### L IPA, DLDL, CON, LIPID, T7, CMP, TSH #### [facility] [address] [place] [address] Dr. Delmer Rea AST [Catalytic activity/Vol] 13 U/L Critically low 15-37 [facility] Comment on above: Performed By: #### L IPA, DLDL, CON, LIPID, T7, CMP, TSH #### [facility] [address] [place] [address] Dr. Delmer Rea Bilirubin [Mass/Vol] 0.3 mg/dL Normal 0.2-1.0 [facility] Comment on above: Performed By: #### L IPA, DLDL, CON, LIPID, T7, CMP, TSH #### [facility] [address] [address] [address] Delmer Rea Calcium [Mass/Vol] 9.6 mg/dL Normal 8.5-10.1 [facility] Comment on above: Performed By: #### L IPA, DLDL, CON, LIPID, T7, CMP, TSH #### [facility] [address] [address] [address] Delmer Rea Chloride [Moles/Vol] 104 mmol/L Normal 98-107 [facility] Comment on above: Performed By: #### L IPA, DLDL, CON, LIPID, T7, CMP, TSH #### [facility] [address] [address] [address] Delmer Rea CO2 [Moles/Vol] 22.7 mmol/L Normal 21.0-32.0 [facility] Comment on above: Performed By: #### L IPA, DLDL, CON, LIPID, T7, CMP, TSH #### [facility] [address] [place] [address] Dr. Delmer Rea Creatinine [Mass/Vol] 2.15 mg/dL Critically high 0.55-1.02 [facility] Comment on above: Performed By: #### L IPA, DLDL, CON, LIPID, T7, CMP, TSH #### [facility] [address] [place] [address] Dr. Delmer Rea EGFR-AF BAHAMIAN 29 mL/min/1.73m2 Critically low >=60 [facility] Comment on above: Performed By: #### L IPA, DLDL, CON, LIPID, T7, CMP, TSH #### [facility] [address] [place] [address] Dr. Delmer Rea EGFR-NON AF BAH[place]IAN 24 mL/min/1.73m2 Critically low >=60 [facility] Comment on above: Performed By: #### L IPA, DLDL, CON, LIPID, T7, CMP, TSH #### [facility] [address] [address] [address] Delmer Rea Globulin (S) [Mass/Vol] 4.3 g/dL Normal [facility] Comment on above: Performed By: #### L IPA, DLDL, CON, LIPID, T7, CMP, TSH #### [facility] [address] [place] [address] Dr. Delmer Rea Glucose [Mass/Vol] 189 mg/dL Critically high 74-106 T [facility] Comment on above: Performed By: #### L IPA, DLDL, CON, LIPID, T7, CMP, TSH #### [facility] [address] [place], [place] [id number] Dr. Delmer Rea Potassium [Moles/Vol] 4.7 mmol/L Normal 3.5-5.1 [facility] Comment on above: Performed By: #### L IPA, DLDL, CON, LIPID, T7, CMP, TSH #### [facility] [address] [address] [address] Delmer Rea Protein [Mass/Vol] 7.8 g/dL Normal 6.4-8.2 [facility] Comment on above: Performed By: #### L IPA, DLDL, CON, LIPID, T7, CMP, TSH #### [facility] [address] [address] [address] Delmer Rea Sodium [Moles/Vol] 139 mmol/L Normal 136-145 [facility] Comment on above: Performed By: #### L IPA, DLDL, CON, LIPID, T7, CMP, TSH #### [facility] [address] [place] [address] Dr. Delmer Rea Urea nitrogen [Mass/Vol] 48.0 mg/dL Critically high 7.0-18.0 [facility] Comment on above: Performed By: #### L IPA, DLDL, CON, LIPID, T7, CMP, TSH #### [facility] [address] [place] [address] Dr. Delmer Rea Urea nitrogen/Creatinine [Mass ratio] 22.3 mg/mg Normal [facility] Comment on above: Performed By: #### L IPA, DLDL, CON, LIPID, T7, CMP, TSH #### [facility] [address] [place] [address] Dr. Delmer Rea TSHon 11-25-2022 TSH 0.063 uIU/mL Critically low 0.358-3.740 [facility] Comment on above: Performed By: #### L IPA, DLDL, CON, LIPID, T7, CMP, TSH #### [facility] [address] [place] [address] Dr. Delmer Rea Letter (Out)on 11-18-2022 Letter (Out) [id number] Booker Thompson 1970 F Date Provider Department Center 11/18/2022 None-None [facility] AUTH [place] Medical C No family history on file Normal [facility] Follow-Upon 11-11-2022 Follow-Up [id number] Booker Thompson 1970 F Date Provider Department Center 11/11/2022 [id number]-[id number], OBI TXP None No family history on file Level of Service:[id number] [place] POSTOP FOLLOW UP VISIT RELATED TO ORIGINAL PX Reason for Visit and Comments: Follow-up [574129] - Patient reports she never can tell when she has to pee lately, her stomach is still sore. Normal [facility] BASIC METABOLIC PANELon 12-2 Anion gap [Moles/Vol] 13 mmol/L Normal 7-20 [facility] Comment on above: Performed By: #### L [id number] ####[facility] LAB (BEAKER)[address] [place] [address] Calcium [Mass/Vol] 8.3 mg/dL Low 8.6-10.3 [facility] Comment on above: Performed By: #### L [id number] ####[facility] LAB (BEAKER)[address] [place] [address] Chloride [Moles/Vol] 100 mmol/L Normal 98-107 [facility] Comment on above: Performed By: #### L [id number] ####[facility] LAB (BEAKER)[address] [place] [address] CO2 [Moles/Vol] 21 mmol/L Normal 21-31 [facility] Comment on above: Performed By: #### L [id number] ####[facility] LAB (BEAKER)[address] [place] [address] Creatinine [Mass/Vol] 1.56 mg/dL High 0.60-1.20 [facility] Comment on above: Performed By: #### L [id number] ####[facility] LAB (BEAKER)[address] [place] [address] GLOMERULAR FILTRATION RATE ML/MIN/1.73 SQ M.PREDICTED 38.2 mL/min/1.73m*2 Low >60.0 [facility] Comment on above: Result Comment: [facility]???s estimated glomerular filtration rate (eGFR) will [...] of individuals. Performed By: #### L [id number] ####[facility] ([facility])[address] [place] [address] Glucose [Mass/Vol] 285 mg/dL High 70-100 [facility] Comment on above: Performed By: #### L [id number] ####[facility] ([facility])[address] [place] [address] Potassium [Moles/Vol] 5.1 mmol/L Normal 3.5-5.1 [facility] Comment on above: Performed By: #### L [id number] ####[facility] ([facility])[address] [place] [address] Sodium [Moles/Vol] 134 mmol/L Low 136-145 [facility] Comment on above: Performed By: #### L [id number] ####[facility] ([facility])[address] [place] [address] Urea nitrogen [Mass/Vol] 25 mg/dL Normal 7-25 [facility] Comment on above: Performed By: #### L [id number] ####[facility] ([facility])[address] [facility] [place] [address] UREA NITROGEN/CREATININE (MASS RATIO) IN SER/PLAS 16.03 Normal [facility] Comment on above: Performed By: #### L [id number] ####[facility] ([facility])[address] [place] [address] CBCon 10-27-2022 Erythrocyte distribution width (RBC) [Ratio] 13.2 % Normal 11.5-15.0 [facility] Comment on above: Performed By: #### L [id number] ####[facility] [place] [address] ERYTHROCYTE MEAN CORPUSCULAR HEMOGLOBIN CONCENTRATION (G/DL) BY AUTOMATED 33.3 g/dL Normal 32.0-35.0 [facility] Comment on above: Performed By: #### L [id number] ####[facility] [place] [address] Hematocrit (Bld) [Volume fraction] 28.8 % Low 36.0-48.0 [facility] Comment on above: Performed By: #### L [id number] ####[facility] [place] [address] Hemoglobin (Bld) [Mass/Vol] 9.6 g/dL Low 12.0-15.0 [facility] Comment on above: Performed By: #### L [id number] ####[facility] LAB (BEAKER)[address] [place] [address] MCH (RBC) [Entitic mass] 28.1 pg Normal 27.0-33.0 [facility] Comment on above: Performed By: #### L [id number] ####[facility] LAB (BEAKER)[address] [place] [address] MCV (RBC) [Entitic vol] 84.2 fL Normal 82.0-98.0 [facility] Comment on above: Performed By: #### L [id number] ####[facility] LAB (BEAKER)[address] [place] [address] PLATELETS (10*3/UL) IN BLOOD AUTOMATED COUNT 283 10*3/uL Normal 150-400 [facility] Comment on above: Performed By: #### L [id number] ####[facility] LAB (BEAKER)[address] [place] [address] RBC (Bld) [#/Vol] 3.42 10*6/uL Low 3.80-5.00 [facility] Comment on above: Performed By: #### L [id number] ####[facility] LAB (JUANA)[address] [place] [address] WBC (Bld) [#/Vol] 11.07 10*3/uL High 4.00-10.60 [facility] Comment on above: Performed By: #### L [id number] ####[facility] LAB (JUANA)[address] [place] [address] DSon 10-27-2022 DS ---- -------- Attestation signed by Castillo [...] Abnormal Calci (more content not included)... Normal [facility] MAGNESIUMon 10-27-2022 Magnesium [Mass/Vol] 1.1 mg/dL Low 1.9-2.7 [facility] Comment on above: Performed By: #### L [id number] ####[facility] ([facility])[address] [place] [address] PHOSPHORUSon 10-27-2022 Magnesium [Mass/Vol] 3.4 mg/dL Normal 2.5-5.0 [facility] Comment on above: Performed By: #### L [id number] ####[facility] ([facility])[address] [place] [address] POCT GLUCOSE METER UNSOLICIT ED RESULTSon 10-27-2022 Glucose [Mass/Vol] 274 mg/dL High 70-105 [facility] Comment on above: Result Comment: gcul kow Performed By: #### L [id number] ####[facility] ([facility])[address] [place] [address] Glucose [Mass/Vol] 301 mg/dL High 70-105 [facility] Comment on above: Result Comment: gcul kow Performed By: #### L [id number] ####[facility] ([facility])[address] [place] [address] 29on 10-26-2022 29 Addendum created 10/26/221953 by Kesha Fernandez DO Clinical Note Signed, SmartForm saved Normal [facility] ARTERIAL BLOOD GAS WITH CO-O XIMETRYon 10-26-2022 Base excess Calc (Bld) [Moles/Vol] -3.2000 mmol/L Low -2.0-3.0 [facility] Comment on above: Performed By: #### L [id number] ####[facility] RESPIRATORY [id number] [place] [address] [facility] Base excess Calc (Bld) [Moles/Vol] -5.1000 mmol/L Low -2.0-3.0 [facility] Comment on above: Performed By: #### L [id number] ####[facility] RESPIRATORY [id number] [place] [place] [address] [place] CARBOXYHEMOGLOBIN/H EMOGLOBIN TOTAL % IN BLOOD 1.0 % Normal 0.0-3.0 [facility] Comment on above: Performed By: #### L [id number] ####[facility] RESPIRATORY [id number] [place] [address] [place] CARBOXYHEMOGLOBIN/H EMOGLOBIN TOTAL % IN BLOOD 1.4 % Normal 0.0-3.0 [facility] Comment on above: Performed By: #### L [id number] ####[facility] RESPIRATORY [id number] [place] [address] [place] CO2 (Bld) [Partial pressure] 34 mm[Hg] Low 35-48 [facility] Comment on above: Performed By: #### L [id number] ####[facility] RESPIRATORY [id number] [place] [address] [facility] CO2 (Bld) [Partial pressure] 40 mm[Hg] Normal 35-48 [facility] Comment on above: Performed By: #### L [id number] ####[facility] RESPIRATORY [id number] [place] [address] [place] DEOXYGENATED HEMOGLOBIN IN BLOOD 0.7 % Low 1-5 [facility] Comment on above: Performed By: #### L [id number] ####[facility] RESPIRATORY [id number] [place] [address] [place] DEOXYGENATED HEMOGLOBIN IN BLOOD 0 % Low 1-5 [facility] Comment on above: Performed By: #### L [id number] ####[facility] RESPIRATORY [id number] [place] [address] [place] HCO3 (Bld) [Moles/Vol] 21.1 mmol/L Normal 21.0-28.0 [facility] Comment on above: Performed By: #### L [id number] ####[facility] RESPIRATORY [id number] [place] [address] [place] HCO3 (Bld) [Moles/Vol] 20.6 mmol/L Low 21.0-28.0 [facility] Comment on above: Performed By: #### L [id number] ####[facility] RESPIRATORY [id number] [place] [address] [place] Hemoglobin (Bld) [Mass/Vol] 9.4 g/dL Low 11.7-17.4 [facility] Comment on above: Performed By: #### L [id number] ####[facility] RESPIRATORY [id number] [place] [address] [place] Hemoglobin (Bld) [Mass/Vol] 10.8 g/dL Low 11.7-17.4 [facility] Comment on above: Performed By: #### L [id number] ####[facility] RESPIRATORY [id number] [place] [address] [place] METHEMOGLOBIN/100 IN BLOOD 1.1 % Normal 0.0-1.5 [facility] Comment on above: Performed By: #### L [id number] ####[facility] RESPIRATORY [id number] [place] [address] [place] METHEMOGLOBIN/100 IN BLOOD 1.5 % Normal 0.0-1.5 [facility] Comment on above: Performed By: #### L [id number] ####[facility] RESPIRATORY [id number] [place] [address] [place] Oxygen (Bld) [Partial pressure] 197 mm[Hg] High 83-100 [facility] Comment on above: Performed By: #### L [id number] ####[facility] RESPIRATORY [id number] [place] [address] [place] Oxygen (Bld) [Partial pressure] 202 mm[Hg] High 83-100 [facility] Comment on above: Performed By: #### L [id number] ####[facility] RESPIRATORY [id number] [place] [address] [place] OXYGEN SATURATION (%) IN ARTERIAL BLOOD 99.3 % High 94.0-98.0 [facility] Comment on above: Performed By: #### L [id number] ####[facility] RESPIRATORY [id number] [place] [address] [place] OXYGEN SATURATION (%) IN ARTERIAL BLOOD 100.0 % High 94.0-98.0 [facility] Comment on above: Performed By: #### L [id number] ####[facility] RESPIRATORY [id number] [place] [address] [place] OXYGENATED HEMOGLOBIN IN BLOOD 97.3 % High 90.0-95.0 [facility] Comment on above: Performed By: #### L [id number] ####[facility] RESPIRATORY [id number] [place] [address] [facility] OXYGENATED HEMOGLOBIN IN BLOOD 97.1 % High 90.0-95.0 [facility] Comment on above: Performed By: #### L [id number] ####[facility] RESPIRATORY [id number] [place] [address] [facility] pH (Bld) 7.40 [pH] Normal 7.35-7.45 [facility] Comment on above: Performed By: #### L [id number] ####[facility] RESPIRATORY [id number] [place] [address] [facility] pH (Bld) 7.32 [pH] Low 7.35-7.45 [facility] Comment on above: Performed By: #### L [id number] ####[facility] RESPIRATORY [id number] [place] [address] [facility] SOURCE OF OXYGEN Vent Normal [facility] Comment on above: Performed By: #### L [id number] ####[facility] RESPIRATORY [id number] [place] [address] [facility] SOURCE OF OXYGEN Vent Normal [facility] Comment on above: Performed By: #### L [id number] ####[facility] RESPIRATORY [id number] [place] [address] [facility] Anesthesiaon 10-26-2022 Anesthesia [id number] Booker Thompson 1970 Date Provider Department Center 10/26/2022 KESHA REYES [facility] OR [place] Medical C No family history on file Normal [facility] BASIC METABOLIC PANELon 12-2 Anion gap [Moles/Vol] 12 mmol/L Normal 7-20 [facility] Comment on above: Performed By: #### L [id number] ####[facility] HOSPITAL LAB (BEAKER)[address] [place] [address] Calcium [Mass/Vol] 8.3 mg/dL Low 8.6-10.3 [facility] Comment on above: Performed By: #### L [id number] ####[facility] LAB ([facility])[address] [place] [address] Chloride [Moles/Vol] 107 mmol/L Normal 98-107 [facility] Comment on above: Performed By: #### L [id number] ####[facility] LAB ([facility])[address] [place] [address] CO2 [Moles/Vol] 20 mmol/L Low 21-31 [facility] Comment on above: Performed By: #### L [id number] ####[facility] LAB ([facility])[address] [place] [address] Creatinine [Mass/Vol] 1.38 mg/dL High 0.60-1.20 [facility] Comment on above: Performed By: #### L [id number] ####[facility] LAB ([facility])[address] [place] [address] GLOMERULAR FILTRATION RATE ML/MIN/1.73 SQ M.PREDICTED 44.3 mL/min/1.73m*2 Low >60.0 [facility] Comment on above: Result Comment: [facility]???s estimated glomerular filtration rate (eGFR) will [...] of individuals. Performed By: #### L [id number] ####[facility] LAB ([facility])[address] [place] [address] Glucose [Mass/Vol] 177 mg/dL High 70-100 [facility] Comment on above: Performed By: #### L [id number] ####[facility] LAB ([facility])[address] [place] [address] Potassium [Moles/Vol] 4.4 mmol/L Normal 3.5-5.1 [facility] Comment on above: Performed By: #### L [id number] ####[facility] [place] [address] Sodium [Moles/Vol] 139 mmol/L Normal 136-145 [facility] Comment on above: Performed By: #### L [id number] ####[facility] [place] [address] Urea nitrogen [Mass/Vol] 23 mg/dL Normal 7-25 [facility] Comment on above: Performed By: #### L [id number] ####[facility] LAB ([facility])[address] [place] [address] UREA NITROGEN/CREATININE (MASS RATIO) IN SER/PLAS 16.67 Normal [facility] Comment on above: Performed By: #### L [id number] ####[facility] [place] [address] CALCIUM, IONIZEDon CALCIUM IONIZED (MMOL/L) IN BLOOD 1.14 mmol/L Low 1.15-1.33 [facility] Comment on above: Performed By: #### C ALCIUM, IONIZED ####[facility] RESPIRATORY [id number] [place] [address] [facility] CALCIUM IONIZED (MMOL/L) IN BLOOD 1.08 mmol/L Low 1.15-1.33 [facility] Comment on above: Performed By: #### C ALCIUM, IONIZED ####[facility] RESPIRATORY [id number] [place] [address] [place] CBCon 10-26-2022 Erythrocyte distribution width (RBC) [Ratio] 13.2 % Normal 11.5-15.0 [facility] Comment on above: Performed By: #### L [id number] ####[facility] LAB (BEAKER)[address] [place] [address] ERYTHROCYTE MEAN CORPUSCULAR HEMOGLOBIN CONCENTRATION (G/DL) BY AUTOMATED 32.1 g/dL Normal 32.0-35.0 [facility] Comment on above: Performed By: #### L [id number] ####[facility] [place] [place] [address] Hematocrit (Bld) [Volume fraction] 29.9 % Low 36.0-48.0 [facility] Comment on above: Performed By: #### L [id number] ####[facility] LAB ([facility])[address] [place] [address] Hemoglobin (Bld) [Mass/Vol] 9.6 g/dL Low 12.0-15.0 [facility] Comment on above: Performed By: #### L [id number] ####[facility] LAB ([facility])[address] [address] MCH (RBC) [Entitic mass] 27.6 pg Normal 27.0-33.0 [facility] Comment on above: Performed By: #### L [id number] ####[facility] LAB ([facility])[address] [place] [address] MCV (RBC) [Entitic vol] 85.9 fL Normal 82.0-98.0 [facility] Comment on above: Performed By: #### L [id number] ####[facility] LAB ([facility])[address] [place] [address] PLATELETS (10*3/UL) IN BLOOD AUTOMATED COUNT 290 10*3/uL Normal 150-400 [facility] Comment on above: Performed By: #### L [id number] ####[facility] LAB ([facility])[address] [place] [address] RBC (Bld) [#/Vol] 3.48 10*6/uL Low 3.80-5.00 [facility] Comment on above: Performed By: #### L [id number] ####[facility] LAB [facility] [address] WBC (Bld) [#/Vol] 10.81 10*3/uL High 4.00-10.60 [facility] Comment on above: Performed By: #### L [id number] ####[facility] LAB (BEAKER)[address] [place] [address] HISTOLOGY - TISSUE EXAMon LAB AP CASE REPORT Normal [facility] Comment on above: Order Comment: Pre-o p diagnosis: Atrophic kidney [N26.1] Result Comment: Surg ical Pathology Case: [id number] Authorizing Provider: Castillo Almeida MD Collected: 10/26/2022 1321 Ordering Location: [facility] Main Operating Room Received: 10/26/2022 1423 Pathologist: Natalia Macias MD Specimen: Kidney, 1. left kidney Performed By: #### L [id number] #### [facility] LAB (BEAKER) [address] [place] [address] LAB AP CLINICAL INFORMATION Normal [facility] Comment on above: Order Comment: Pre-o p diagnosis: Atrophic kidney [N26.1] Result Comment: Pre- op diagnosis: Atrophic kidney [N26.1] Performed By: #### L [id number] #### [facility] LAB (BEAKER) [address] [place] [address] LAB AP GROSS DESCRIPTION A. Kidney. Normal [facility] Comment on above: Order Comment: Pre-o [...] x 0.4 cm. Gross photographs are taken. Analyst Microbiology Lab sections are submitted as follows: 1 vascular margins, en face and ureteral margin, en face 2 upper pole of kidney 3 mid kidney with sinus fat 4 lower pole of kidney with capsule and perinephric fat 5 renal pelvis underlying stones 6 area surrounding stent 7 possible cyst and parenchyma to pelvis 8 Gerota's fascia 9 possible lymph nodes Edith Jay, Pathologists' Guest Experience Captain Student Performed By: #### L [id number] #### [facility] LAB (AKER) [address] [place] [address] LAB AP MICROSCOPIC DESCRIPTION Microscopic examination performed. [facility] Comment on above: Order Comment: Pre-o p diagnosis: Atrophic kidney [N26.1] Performed By: #### L [id number] #### [facility] LAB (AKER) [address] [place] [address] LAB AP REPORT FINAL DIAGNOSIS NARRATIVE Normal [facility] Comment on above: Order Comment: Pre-o p diagnosis: Atrophic kidney [N26.1] Result Comment: Rajnin ey, left, nephrectomy: - Chronic pyelonephritis with [...] (gross examination only) Performed By: #### L [id number] #### [facility] J[address]AN [address]) [place] [address] on 10-26-2022 ---- -------- Attestation signed by Castillo Almeida [...] of left kidney, CVA (cerebral vascular accident) (CMS/HCC) (2021), Diabetes mellitus (CMS/[facility]), and Kidney stone. Surgical History She has [...] N.p.o. Consent Left nephrectomy robotic assisted Normal [facility] NURSNOTEon 10-26-2022 NURSNOTE Pt resting at bedsid e with spouse. Normal [facility] NURSNOTE Report called to Albert. Normal [facility] OPNOTEon 10-26-2022 OPNOTE ---- -------- Attestation signed by Castillo Almeida MD at 10/29/2022 1:39 PM I was present for the entirety of the procedure(s). Castillo Almeida MD -------- NEPHRECTOMY, ROBOT-ASSISTED (L) Operative Note Date: 10/26/2022 Location: [facility] OR Name: Asa Thompson, : 1970, Diagnosis [...] Castillo Almeida MD 10/26/22 1321 No Routine [id number] Description: 1. left kidney Staff: Mold Car Pusher: Carlyn Harrison RN; Aime Burks RN Relief Scrub: Zan Reyes CST Scrub Person: Loida Solorio CST Stamp Mounter: LINDA Hamilton Mold Car Pusher: Jeannine Rojas Scrub: Nubia Kebede Indications: Asa [...] was pr (more content not included)... Normal [facility] POCT GLUCOSE METER UNSOLICIT ED RESULTSon 10-26-2022 Glucose [Mass/Vol] 165 mg/dL High 70-105 [facility] Comment on above: Result Comment: [address] rd Performed By: #### L [id number] ####[facility] ([facility])[address] [place] [address] Glucose [Mass/Vol] 102 mg/dL Normal 70-105 [facility] Comment on above: Result Comment: eileen [email or web address] Performed By: #### L [id number] ####[facility] ([facility])[address] [place] [address] Glucose [Mass/Vol] 139 mg/dL High 70-105 [facility] Comment on above: Result Comment: eileen [email or web address] Performed By: #### L [id number] ####[facility] ([facility])[address] [place] [address] Glucose [Mass/Vol] 135 mg/dL High 70-105 [facility] Comment on above: Result Comment: eileen [email or web address] Performed By: #### L [id number] ####[facility] ([facility])[address] [place] [address] Glucose [Mass/Vol] 146 mg/dL High 70-105 [facility] Comment on above: Result Comment: eileen [email or web address] Performed By: #### L [id number] ####[facility] ([facility])[address] [place] [address] Glucose [Mass/Vol] 143 mg/dL High 70-105 [facility] Comment on above: Result Comment: czyd orc Performed By: #### L [id number] ####[facility] ([facility])[address] [place] [address] Glucose [Mass/Vol] 209 mg/dL High 70-105 [facility] Comment on above: Result Comment: sabino barry Performed By: #### L [id number] ####[facility] ([facility])[address] [place] [address] POCT SARS-COV-2 PCRon 2021 POC SARS-COV-2 ANTIGEN Negative Normal Negative [facility] Comment on above: Result Comment: ID [...] Certificate of Accreditation. Performed By: #### L [id number] ####[facility] (JUANA)[address] [place] [address] POTASSIUM, WHOLE BLOODon Potassium [Moles/Vol] 3.4 mmol/L Low 3.5-5.1 [facility] Comment on above: Performed By: #### P OTASSIUM, WHOLE BLOOD ####[facility] RESPIRATORY [id number] [place] [address] [facility] Potassium [Moles/Vol] 3.4 mmol/L Low 3.5-5.1 [facility] Comment on above: Performed By: #### P OTASSIUM, WHOLE BLOOD ####[facility] RESPIRATORY [id number] [place] [address] [place] SODIUM, WHOLE BLOODon 2021 SODIUM, WHOLE BLOOD 140 Normal 136-145 [facility] Comment on above: Performed By: #### S ODIUM, WHOLE BLOOD ####[facility] RESPIRATORY [id number] [address] [place] SODIUM, WHOLE BLOOD 138 Normal 136-145 [facility] Comment on above: Performed By: #### S ODIUM, WHOLE BLOOD ####[facility] RESPIRATORY [id number] [place] [address] [place] TYPE AND SCREENon 10-26-2022 AB SCREEN Negative Normal [facility] Comment on above: Performed By: #### L [id number] ####[facility] BLOOD BANK, ABO group Nom (Bld) A Normal [facility] Comment on above: Performed By: #### L [id number] ####[facility] BLOOD BANK, RH TYPE IN BLOOD Positive Normal [facility] Comment on above: Performed By: #### L [id number] ####[facility] BLOOD BANK, URINE CULTURE, ROUTINEon Ampicillin [Susc] 1 ug/ml Susceptible [facility] Comment on above: Performed By: #### L [id number] #### [facility] ([facility]) [address] [place] [address] Nitrofurantoin [Susc] <=16 Susceptible [facility] Comment on above: Performed By: #### L [id number] #### [facility] ([facility]) [address] [place] [address] Vancomycin [Susc] 2 ug/ml Susceptible [facility] Comment on above: Performed By: #### L [id number] #### [facility] ([facility]) [address] [place] [address] Letter (Out)on 10-18-2022 Letter (Out) [id number] Booker Thompson 1970 Provider Department Center 10/18/2022 None-None [facility] ADMIT CA Medical C No family history on file Normal [facility] Letter (Out)on 10-14-2022 Letter (Out) [id number] Booker Thompson 1970 Provider Department Center 10/14/2022 None-None [facility] ADMIT CA Medical C No family history on file Normal [facility] Orders Onlyon 10-14-2022 Orders Only [id number] Booker Thompson 1970 [facility] 10/14/2022 NUBIA DUNN [facility] None No family history on file Normal [facility] 29on 10-13-2022 29 Addended by: NUBIA LOZANO on: 10/14/2022 10:21 AM Modules accepted: Orders Normal [facility] APTTon 10-13-2022 ACTIVATED PARTIAL THROMBOPLASTIN TIME IN PPP BY COAGULATION ASSAY 28.4 Seconds Normal 25.0-35.0 [facility] Comment on above: Performed By: #### L [id number] ####[facility] ([facility])[address] [place] [address] Follow-Upon 10-13-2022 Follow-Up [id number] Booker Thompson 1970 [facility] 10/13/2022 NUBIA DUNN None No family history on file Level of Service:93416 LA OFFICE/OUTPATIENT ESTABLISHED LOW MDM 20-29 MIN Reason for Visit and Comments: Pre-op Exam [[id number]] - Patient has a few questions about procedure, bleedig afterwards etc Normal [facility] PROTIME-INRon 10-13-2022 INR IN PPP BY COAGULATION ASSAY 0.99 Normal 0.90-1.10 [facility] Comment on above: Result Comment: ACCC [...] CHEST 1995;108:231S-246S. Performed By: #### L [id number] ####[facility] (BE[facility]ER)[address] [place] [address] PROTHROMBIN TIME (PT) IN PPP BY COAGULATION ASSAY 13.1 Seconds Normal 12.3-14.8 [facility] Comment on above: Performed By: #### L [id number] ####[facility] (BE[facility]ER)[address] [place] [address] Letter (Out)on 10-11-2022 Letter (Out) [id number] Booker Thompson 1970 F Date Provider Department Center 10/11/2022 None-None [facility] AUTH [facility] No family history on file Normal [facility] 36on 10-04-[address] [...] malodorous and cloudy urine. Fluconazole prescribed. Normal [facility] Telephoneon 10-04-2022 Telephone [id number] Booker Thompson 1970 F Date Provider Department Center 10/04/2022 NUBIA MUÑIZ [facility] file Normal [facility] 36on 09-27-2022 36 Left detailed voicem ail that patients surgery with Obi is scheduled 10/26/22 here is the main Normal [facility] APTTon 09-27-2022 ACTIVATED PARTIAL THROMBOPLASTIN TIME IN PPP BY COAGULATION ASSAY 28.0 Seconds Normal 25.0-35.0 [facility] Comment on above: Performed By: #### L [id number] ####[facility] ([facility])[address] [place] [address] BASIC METABOLIC PANELon 11-2 Anion gap [Moles/Vol] 12 mmol/L Normal 7-20 [facility] Comment on above: Performed By: #### L [id number] ####[facility] ([facility])[address] [place] [address] Calcium [Mass/Vol] 9.3 mg/dL Normal 8.6-10.3 [facility] Comment on above: Performed By: #### L [id number] ####[facility] ([facility])[address] [place] [address] Chloride [Moles/Vol] 104 mmol/L Normal 98-107 [facility] Comment on above: Performed By: #### L [id number] ####[facility] ([facility])[address] [address] CO2 [Moles/Vol] 22 mmol/L Normal 21-31 [facility] Comment on above: Performed By: #### L [id number] ####[facility] ([facility])[address] [place] [address] Creatinine [Mass/Vol] 1.35 mg/dL High 0.60-1.20 [facility] Comment on above: Performed By: #### L [id number] ####[facility] ([facility])[address] [place] [address] GLOMERULAR FILTRATION RATE ML/MIN/1.73 SQ M.PREDICTED 45.5 mL/min/1.73m*2 Low >60.0 [facility] Comment on above: Result Comment: [facility]???s estimated glomerular filtration rate (eGFR) will [...] of individuals. Performed By: #### L [id number] ####[facility] ([facility])[address] [place] [address] Glucose [Mass/Vol] 268 mg/dL High 70-100 [facility] Comment on above: Performed By: #### L [id number] ####[facility] ([facility])[address] [place] [address] Potassium [Moles/Vol] 4.7 mmol/L Normal 3.5-5.1 [facility] Comment on above: Performed By: #### L [id number] ####[facility] ([facility])[address] [place] [address] Sodium [Moles/Vol] 138 mmol/L Normal 136-145 [facility] Comment on above: Performed By: #### L [id number] ####[facility] ([facility])[address] [place] [address] Urea nitrogen [Mass/Vol] 29 mg/dL High 7-25 [facility] Comment on above: Performed By: #### L [id number] ####[facility] ([facility])[address] [place] [address] UREA NITROGEN/CREATININE (MASS RATIO) IN SER/PLAS 21.48 Normal [facility] Comment on above: Performed By: #### L [id number] ####[facility] ([facility])[address] [place] [address] CBC WITH AUTO DIFFERENTIALon 09-27-2022 Basophils (Bld) [#/Vol] 0.03 10*3/uL Normal 0.00-0.20 [facility] Comment on above: Performed By: #### L [id number] #### [facility] ([facility]) [address] [place] [address] Basophils/100 WBC (Bld) 0.4 % Normal 0.0-1.0 [facility] Comment on above: Performed By: #### L [id number] #### [facility] [address] [place] [address] Eosinophils (Bld) [#/Vol] 0.20 10*3/uL Normal 0.00-0.50 [facility] Comment on above: Performed By: #### L [id number] #### [facility] ([facility]) [address] [place] [address] Eosinophils/100 WBC (Bld) 2.9 % Normal 0.0-6.0 [facility] Comment on above: Performed By: #### L [id number] #### [facility] ([facility]) [address] [place] [address] ERYTHROCYTE DISTRIBUTION WIDTH (RATIO) STANDARD DEVIATION 37.1 Normal [facility] Comment on above: Performed By: #### L [id number] #### [facility] ([facility]) [address] [place] [address] Erythrocyte distribution width (RBC) [Ratio] 12.3 % Normal 11.5-15.0 [facility] Comment on above: Performed By: #### L [id number] #### [facility] ([facility]) [address] [place] [address] ERYTHROCYTE MEAN CORPUSCULAR HEMOGLOBIN CONCENTRATION (G/DL) BY AUTOMATED 33.0 g/dL Normal 32.0-35.0 [facility] Comment on above: Performed By: #### L [id number] #### [facility] [address] [place] [address] Hematocrit (Bld) [Volume fraction] 37.3 % Normal 36.0-48.0 [facility] Comment on above: Performed By: #### L [id number] #### [facility] [address] [place] [address] Hemoglobin (Bld) [Mass/Vol] 12.3 g/dL Normal 12.0-15.0 [facility] Comment on above: Performed By: #### L [id number] #### [facility] ([facility]) [address] [place] [address] Immature granulocytes (Bld) [#/Vol] 0.03 10*3/uL Normal 0.00-0.20 [facility] Comment on above: Performed By: #### L [id number] #### [facility] ([facility]) [address] [place] [address] Immature granulocytes/100 WBC (Bld) 0.4 % Normal 0.0-1.0 [facility] Comment on above: Performed By: #### L [id number] #### [facility] ([facility]) [address] [place] [address] Lymphocytes (Bld) [#/Vol] 1.64 10*3/uL Normal 1.20-4.00 [facility] Comment on above: Performed By: #### L [id number] #### [facility] ([facility]) [address] [place] [address] Lymphocytes/100 WBC (Bld) 24.0 % Normal 20.0-45.0 [facility] Comment on above: Performed By: #### L [id number] #### [facility] ([facility]) [address] [place] [address] MCH (RBC) [Entitic mass] 27.4 pg Normal 27.0-33.0 [facility] Comment on above: Performed By: #### L [id number] #### [facility] ([facility]) [address] [place] [address] MCV (RBC) [Entitic vol] 83.1 fL Normal 82.0-98.0 [facility] Comment on above: Performed By: #### L [id number] #### [facility] ([facility]) [address] [place] [address] Monocytes (Bld) [#/Vol] 0.44 10*3/uL Normal 0.10-1.00 [facility] Comment on above: Performed By: #### L [id number] #### [facility] [address] [place] [address] Monocytes/100 WBC (Bld) 6.5 % Normal 5.0-12.0 [facility] Comment on above: Performed By: #### L [id number] #### [facility] ([facility]) [address] [place] [place] [address] Neutrophils (Bld) [#/Vol] 4.48 10*3/uL Normal 1.60-7.60 [facility] Comment on above: Performed By: #### L [id number] #### [facility] ([facility]) [address] [place] [address] Neutrophils/100 WBC (Bld) 65.8 % Normal 40.0-72.0 [facility] Comment on above: Performed By: #### L [id number] #### [facility] ([facility]) [address] [place] [address] NRBC (PER 100 WBCS) BY AUTOMATED COUNT 0.0 % Normal 0.0-0.0 [facility] Comment on above: Performed By: #### L [id number] #### [facility] ([facility]) [address] [place] [address] PLATELETS (10*3/UL) IN BLOOD AUTOMATED COUNT 412 10*3/uL High 150-400 [facility] Comment on above: Performed By: #### L [id number] #### [facility] ([facility]) [address] [place] [address] RBC (Bld) [#/Vol] 4.49 10*6/uL Normal 3.80-5.00 [facility] Comment on above: Performed By: #### L [id number] #### [facility] ([facility]) [address] [place] [address] WBC (Bld) [#/Vol] 6.82 10*3/uL Normal 4.00-10.60 [facility] Comment on above: Performed By: #### L [id number] #### [facility] (BEAKER) [address] [place] [address] Follow-Upon 09-27-2022 Follow-Up [id number] CariharryBooker 1970 F Date Provider Department Center 09/27/2022 Mehrdad-NUBIA HYMAN [facility] URO Second [place] No family history on file Level of Service:15335 LA OFFICE/OUTPATIENT ESTABLISHED HIGH MDM 40-54 MIN Normal [facility] PROTIME-INRon 09-27-2022 INR IN PPP BY COAGULATION ASSAY 0.93 Normal 0.90-1.10 [facility] Comment on above: Result Comment: ACCC [...] CHEST 1995;108:231S-246S. Performed By: #### L [id number] ####[facility] (BEAKER)[address] [place] [address] PROTHROMBIN TIME (PT) IN PPP BY COAGULATION ASSAY 12.5 Seconds Normal 12.3-14.8 [facility] Comment on above: Performed By: #### L [id number] ####[facility] (BEAKER)[address] [place] [address] URINE CULTURE, ROUTINEon Bacteria identified Cx Nom (U) JAVI GLABRATA Abnormal [facility] Comment on above: Result Comment: 50,0 00 - 100,000 CFU/Ml Javi glabrata Performed By: #### L [id number] #### [facility] (JUANA) [address] [address] CT ABDOMEN PELVIS WO IV CONT RASTon [...] this report. Electronically signed: Carlos Sue. Normal [facility] CULTURE URINEon 09-12-2022 CULTURE URINE Culture Observations : LIGHT GROWTH OF MIXED GENITAL JOSE. NO POTENTIAL PATHOGENS SEEN. Normal [facility] Comment on above: Performed By: #### L IPA, DLDL, CON, LIPID, T7, CMP, TSH #### [facility] [address] [address] [address] Delmer Rea URINE MICROSCOPIC ONLYon BACTERIA MODERATE Abnormal NONE SEEN [facility] Comment on above: Performed By: #### L IPA, DLDL, CON, LIPID, T7, CMP, TSH #### [facility] [address] [address] [address] Delmer Rea Bacteria identified Cx Nom (U) CX ALREADY ORDERED Normal [facility] Comment on above: Performed By: #### L IPA, DLDL, CON, LIPID, T7, CMP, TSH #### [facility] [address] [address] [address] Delmer Rea CAST NONE SEEN Normal NONE SEEN [facility] Comment on above: Performed By: #### L IPA, DLDL, CON, LIPID, T7, CMP, TSH #### [facility] [address] [address] [address] Delmer Rea Crystals LM Nom (Urine sed) NONE SEEN Normal NONE SEEN [facility] Comment on above: Performed By: #### L IPA, DLDL, CON, LIPID, T7, CMP, TSH #### [facility] [address] [address] [address] Delmer Rea Epithelial cells LM Ql (Urine sed) FEW Abnormal NONE SEEN /RARE [facility] Comment on above: Performed By: #### L IPA, DLDL, CON, LIPID, T7, CMP, TSH #### [facility] [address] [address] [address] Delmer Rea MUCOUS NONE SEEN Normal NONE SEEN [facility] Comment on above: Performed By: #### L IPA, DLDL, CON, LIPID, T7, CMP, TSH #### [facility] [address] [address] [address] Delmer Rea RBC 5-10 Abnormal 0-2 [facility] Comment on above: Performed By: #### L IPA, DLDL, CON, LIPID, T7, CMP, TSH #### [facility] [address] [address] [address] eDlmer Rea WBC (U) [#/Vol] /uL Abnormal NONE SEEN The [facility] Comment on above: Performed By: #### L IPA, DLDL, CON, LIPID, T7, CMP, TSH #### [facility] [address] [place], [place] [address] Dr. Delmer Rea YEAST PRESENT Abnormal NONE SEEN [facility] Comment on above: Performed By: #### L IPA, DLDL, CON, LIPID, T7, CMP, TSH #### [facility] [address] [place], [place] [address] Dr. Delmer Rea Follow-Upon 08-18-2022 Follow-Up [id number] Booker Thompson 1970 F Date Provider Department [place] 08/18/2022 Karen-CASTILLO ALMEIDA [facility] No family history on file Level of Service:89565 LA OFFICE/OUTPATIENT ESTABLISHED HIGH MDM 40-54 MIN Reason for Visit and Comments: Urolithiasis [539] - Patient reports she has no new symptoms wants stone removed. Normal [facility] Follow-Upon 08-17-2022 Follow-Up [id number] Booker Thompson 1970 Date Provider Department [place] 08/17/2022 AlexandraAnanthLARRYRICKYLUTHER [facility] No family history on file Level of Service:24700 LA OFFICE/OUTPATIENT NEW MODERATE MDM 45-59 MINUTES Reason for Visit and Comments: Nephrolithiasis [107430] - Patient states she has a neph tube because she has a kidney stone that is causing hyronephrosis. Patient would like the tube removed and her kidney stone removed. Normal [facility] NM KIDNEY W FLOW AND FUNCTIO [...] Akil Cummings MD 08/05/22 Final result Normal [facility] APTTon 07-26-2022 aPTT Coag (Bld) [Time] 23.4 s [facility] ITS Compliance Comment on above: IV Heparin Therapy Range: 48.6-77.8 aPTT Coag (Bld) [Time] 23.4 s Normal 20.5-30.5 [facility] Comment on above: Result Comment: IV Heparin Therapy Range: 48.6-77.8 Performed By: #### A NAX, IFX, PHEP, FKLLC, PE #### [facility] [place], [place] [id number] Vp Project: Bala Skelton MD CBC with Auto Differentialon 07-26-2022 Absolute Eos # 0.29 [facility] Compliance Absolute Immature Granulocyte 0.09 [facility] Compliance Absolute Lymph # 2.26 [facility] [employer] Absolute Preble # 0.65 [facility] [place] Basophils (Bld) [#/Vol] 0.04 10*3/uL [facility] [employer] Basophils/100 WBC (Bld) 1 % 0 - 2 % [facility] [employer] Eosinophils/100 WBC (Bld) 4 % 1 - 4 % [facility] Hematocrit (Bld) [Volume fraction] 29.5 % Low 36.3 - 47.1 % [facility] Hemoglobin (Bld) [Mass/Vol] 10.1 g/dL Low 11.9 - 15.1 g/dL [facility] Immature granulocytes/100 WBC (Bld) 1 % High 0 [facility] Interpretation and review of laboratory results Abnormal [facility] Lymphocytes/100 WBC (Bld) 27 % 24 - 43 % [facility] MCH (RBC) [Entitic mass] 29.3 pg 25.2 - 33.5 pg [facility] MCHC (RBC) [Mass/Vol] 34.2 g/dL 28.4 - 34.8 g/dL [facility] MCV (RBC) [Entitic vol] 85.5 fL 82.6 - 102.9 fL [facility] Monocytes/100 WBC (Bld) 8 % 3 - 12 % [facility] NRBC Automated 0.0 0.0 per 100 WBC [facility] Platelet distribution width (Bld) [Ratio] 13.4 % 11.8 - 14.4 % [facility] Platelet mean volume (Bld) [Entitic vol] 9.5 fL 8.1 - 13.5 fL [facility] Platelets (Bld) [#/Vol] 311 10*3/uL [facility] RBC (Bld) [#/Vol] 3.45 10*6/uL Low 3.95 - 5.1 1 m/uL [facility] Segmented neutrophils/100 WBC (Bld) 59 % 36 - 65 % [facility] Segs Absolute 5.00 [facility] WBC (Bld) [#/Vol] 8.3 10*3/uL [facility] CBC with Diffon 07-26-2022 Abs. Basophil 0.04 k/uL Normal 0.00-0.20 [facility] Comment on above: Performed By: #### A NAX, IFX, PHEP, FKLLC, PE #### [facility] [employer] [address] [place] [address] Vp Project: Bala Skelton MD Abs.Imm.Granulocyte 0.09 k/uL Normal 0.00-0.30 [facility] Comment on above: Performed By: #### A NAX, IFX, PHEP, FKLLC, PE #### [address] [address] Vp Project: Bala Skelton MD Abs.Neutrophil (Seg) 5.00 k/uL Normal 1.50-8.10 [facility] Comment on above: Performed By: #### A NAX, IFX, PHEP, FKLLC, PE #### [place] [address] Vp Project: Bala Skelton MD Basophils/100 WBC (Bld) 1 % Normal 0-2 [facility] Comment on above: Performed By: #### A NAX, IFX, PHEP, FKLLC, PE #### [address] [address] Vp Project: Bala Skelton MD Eosinophils (Bld) [#/Vol] 0.29 10*3/uL Normal 0.00-0.44 [facility] Comment on above: Performed By: #### A NAX, IFX, PHEP, FKLLC, PE #### [place] [address] Vp Project: Bala Skelton MD Eosinophils/100 WBC (Bld) 4 % Normal 1-4 [facility] Comment on above: Performed By: #### A NAX, IFX, PHEP, FKLLC, PE #### [address] [address] Vp Project: Bala Skelton MD Erythrocyte distribution width (RBC) [Ratio] 13.4 % Normal 11.8-14.4 [facility] Comment on above: Performed By: #### A NAX, IFX, PHEP, FKLLC, PE #### [address] [address] Vp Project: Bala Skelton MD Hematocrit (Bld) [Volume fraction] 29.5 % Low 36.3-47.1 [facility] Comment on above: Performed By: #### A NAX, IFX, PHEP, FKLLC, PE #### [facility] [employer] [address] [place] [phone] Vp Project: Bala Skelton MD Hemoglobin (Bld) [Mass/Vol] 10.1 g/dL Low 11.9-15.1 [facility] Comment on above: Performed By: #### A NAX, IFX, PHEP, FKLLC, PE #### [address] [address] Vp Project: Bala Skelton MD Immature granulocytes/100 WBC (Bld) 1 % High 0 [facility] Comment on above: Performed By: #### A NAX, IFX, PHEP, FKLLC, PE #### [place] [address] Vp Project: Bala Skelton MD Lymphocytes (Bld) [#/Vol] 2.26 10*3/uL Normal 1.10-3.70 [facility] Comment on above: Performed By: #### A NAX, IFX, PHEP, FKLLC, PE #### [facility] [employer] [address] [place] [phone] Vp Project: Bala Skelton MD Lymphocytes/100 WBC (Bld) 27 % Normal 24-43 [facility] Comment on above: Performed By: #### A NAX, IFX, PHEP, FKLLC, PE #### [facility] [employer] [address] [place] [phone] Vp Project: Bala Skelton MD MCH (RBC) [Entitic mass] 29.3 pg Normal 25.2-33.5 [facility] Comment on above: Performed By: #### A NAX, IFX, PHEP, FKLLC, PE #### [address] [address] Vp Project: Bala Skelton MD MCHC (RBC) [Mass/Vol] 34.2 g/dL Normal 28.4-34.8 [facility] Comment on above: Performed By: #### A NAX, IFX, PHEP, FKLLC, PE #### [address] [address] Vp Project: Bala Skelton MD MCV (RBC) [Entitic vol] 85.5 fL Normal 82.6-102.9 [facility] Comment on above: Performed By: #### A NAX, IFX, PHEP, FKLLC, PE #### [address] [address] Vp Project: Bala Skelton MD Monocytes (Bld) [#/Vol] 0.65 10*3/uL Normal 0.10-1.20 [facility] Comment on above: Performed By: #### A NAX, IFX, PHEP, FKLLC, PE #### [address] [address] Vp Project: Bala Skelton MD Monocytes/100 WBC (Bld) 8 % Normal 3-12 [facility] Comment on above: Performed By: #### A NAX, IFX, PHEP, FKLLC, PE #### [address] [address] Vp Project: Bala Skelton MD Neutrophil (Seg) 59 % Normal 36-65 [facility] Comment on above: Performed By: #### A NAX, IFX, PHEP, FKLLC, PE #### [address] [address] Vp Project: Bala Skelton MD NRBC Automated 0.0 per 100 WBC Normal 0.0 [facility] Comment on above: Performed By: #### A NAX, IFX, PHEP, FKLLC, PE #### [address] [address] Vp Project: Bala Skelton MD Platelet mean volume (Bld) [Entitic vol] 9.5 fL Normal 8.1-13.5 [facility] Comment on above: Performed By: #### A NAX, IFX, PHEP, FKLLC, PE #### [address] [address] Vp Project: Bala Skelton MD Platelets (Bld) [#/Vol] 311 10*3/uL Normal 138-453 [facility] Comment on above: Performed By: #### A NAX, IFX, PHEP, FKLLC, PE #### [address] [address] Vp Project: Bala Skelton MD RBC (Bld) [#/Vol] 3.45 10*6/uL Low 3.95-5.11 [facility] Comment on above: Performed By: #### A NAX, IFX, PHEP, FKLLC, PE #### [address] [address] Vp Project: Bala Skelton MD WBC (Bld) [#/Vol] 8.3 10*3/uL Normal 3.5-11.3 [facility] Comment on above: Performed By: #### A NAX, IFX, PHEP, FKLLC, PE #### [address] [address] Vp Project: Bala Skelton MD IR GUIDED NEPHROURETERAL CAT H REMOVE/REPLACEon 07-26-2022 Radiology Study observation (narrative) JAYDEN GARCÍA [employer] Work Phone: 1. Successful left nephroureteral stent exchange. [facility] Bishnu Wright MD - 07/26/2022 [...] detailed explanation of the procedure including risks. [place] protocol was observed. Sterile gowns, masks, hats and gloves utilized for maximal sterile barrier. The patient was placed in the prone position on the fluoroscopy table, and the existing left nephroureteral stent and flank were prepped and draped in sterile manner. The stent tubing was noted to be broken with the lumen exposed near the level of the skin. A geological scout image demonstrated the distal loop approximating the [...] wire. Under fluoroscopic guidance, a new 8 Belarusian x 22 cm nephroureteral stent was advanced over the wire; the distal loop formed in the bladder, but the proximal loop did not form in the renal pelvis. Therefore, this catheter was removed over wire, and a new 8 Belarusian x 24 cm nephroureteral stent was advanced [...] IMPRESSION: 1. Successful left nephroureteral stent exchange. [employer] Work Phone: IR GUIDED NEPHROURETERAL CAT H REMOVE/REPLACEOrdered By: Bishnu Alan on 07-26-2022 [facility] Work Phone: No Panel Informationon 07-26 [facility] POC Glucose Fingerstickon Glucose [Mass/Vol] 185 mg/dL High 65 - 105 mg/dL [facility] Interpretation and review of laboratory results Abnormal [facility] [place] [facility] [employer] PTon 07-26-2022 INR Coag (PPP) [Relative time] 0.9 {INR} Normal [facility] Comment on above: Result Comment: Therapeutic Range: Moderate Anticoagulant Intensity: INR = 2.0-3.0 High Anticoagulant Intensity: INR = 2.5-3.5 Performed By: #### A NAX, IFX, PHEP, FKLLC, PE #### [employer] [address] [place] [address] [phone] Vp Project: Bala Skelton MD PT Coag (PPP) [Time] 9.4 s Normal 9.1-12.3 [facility] Comment on above: Performed By: #### A NAX, IFX, PHEP, FKLLC, PE #### [employer] [address] [place] [address] [phone] Vp Project: Bala Skelton MD Protime-INRon 07-26-2022 INR Coag (Bld) [Relative time] 0.9 {INR} [facility] Comment on above: Therapeutic Range: Moderate Anticoagulant Intensity: INR = 2.0-3.0 High Anticoagulant Intensity: INR = 2.5-3.5 PT Coag (PPP) [Time] 9.4 s [facility] [employer] Cult, Bloodon 07-25-2022 Cult, Blood Specimen Description .BLOOD Special Requests LEFT FOREARM 5ML Culture NO GROWTH 5 DAYS Report Status FINAL 07/25/2022 Normal [facility] Comment on above: Performed By: #### B C #### [employer] [address] [place] [phone] Vp Project: Bala Skelton MD Cult,Bloodon 07-25-2022 Cult,Blood Specimen Description .BLOOD Special Requests 2ML Culture NO GROWTH 5 DAYS Report Status FINAL 07/25/2022 [facility] Comment on above: Performed By: #### A NAX, IFX, PHEP, FKLLC, PE #### [facility] [address] [place] [address] [phone] Vp Project: Bala Skelton MD Cult,Blood Specimen Description .BLOOD Special Requests RT WRIST 2.5ML Culture NO GROWTH 5 DAYS Report Status FINAL 07/25/2022 [facility] Comment on above: Performed By: #### A NAX, IFX, PHEP, FKLLC, PE #### [address] [phone] Vp Project: Bala Skelton MD Cult,Blood Specimen Description .BLOOD Special Requests LT WRIST 2.5ML Culture NO GROWTH 5 DAYS Report Status FINAL 07/25/2022 [facility] Comment on above: Performed By: #### B C #### [address] [address] Vp Project: Bala Skelton MD XR ABDOMEN (KUB) (SINGLE AP VIEW)on 07-25-2022 Radiology Study observation (narrative) [facility] Work Phone: XR ABDOMEN (KUB) (SINGLE AP VIEW) EXAMINATION: [...] Bry Foreman MD 07/25/22 Final result Normal [facility] Left PCNU in place. There is questionable discontinuity of the retroperitoneal or body wall portion of the catheter. This may be artifactual related to bowel gas. Recommend repeat exam or CT. [facility] EXAMINATION: ONE SUPINE XRAY VIEW(S) OF [...] of the catheter. No gross bony abnormality. [facility] Bry Foreman MD - 07/25/2022 EXAMINATION: [...] bowel gas. Recommend repeat exam or CT. [employer] Phone: XR ABDOMEN (KUB) (SINGLE AP VIEW)Ordered By: Bry Foreman on 07-25-2022 [employer] Phone: Cult,Bloodon 07-23-2022 Cult,Blood Specimen Description .BLOOD Special Requests L WRIST 10 ML Culture NO GROWTH 5 DAYS Report Status FINAL 07/23/2022 Normal [facility] Comment on above: Performed By: #### L ACTIC #### [address] [phone] Vp Project: Bala Skelton MD Cult,Blood Specimen Description .BLOOD Special Requests R FOREARM 10 ML Culture NO GROWTH 5 DAYS Report Status FINAL 07/23/2022 Normal [facility] Comment on above: Performed By: #### A NAX, IFX, PHEP, FKLLC, PE #### [address] [phone] Vp Project: Bala Skelton MD ALEXANDRE Screen w/reflexon 2021 ALEXANDRE Screen Negative Normal NEG [facility] Comment on above: Performed By: #### A NAX, IFX, PHEP, FKLLC, PE #### [address] [phone] Vp Project: Bala Skelton MD Anti-dsDNA 2.1 IU/mL Normal <10.0 [facility] Comment on above: Result Comment: Reference Range: <10.0 Negative 10.0-15.0 Equivocal >15.0 Positive Performed By: #### A NAX, IFX, PHEP, FKLLC, PE #### [address] [phone] Vp Project: Bala Skelton MD MICKIE Screen 0.1 U/mL Normal <0.7 [facility] Comment on above: Result Comment: Reference Range: <0.7 Negative 0.7-1.0 Equivocal >1.0 Positive MICKIE Screen includes U1RNP,RNP70,Sm,Ro(SS-A),La(SS-B),CENP,Scl-70,Gina-1 Performed By: #### A NAX, IFX, PHEP, FKLLC, PE #### [address] [phone] Vp Project: Bala Skelton MD ALEXANDRE Screen with Reflexon Anti ds DNA 2.1 NINF [facility] Comment on above: Reference Range: <10.0 Negative 10.0-15.0 Equivocal >15.0 Positive MICKIE Antibodies Screen 0.1 U/mL NINF - 0.7 U/mL [facility] Comment on above: Reference Range: <0.7 Negative 0.7-1.0 Equivocal >1.0 Positive MICKIE Screen includes U1RNP,RNP70,Sm,Ro(SS-A),La(SS-B),CENP,Scl-70,Gina-1 Nuclear Ab IF (S) [Titer] Negative NEGATIVE [facility] Basic Metab w/rfx MGon 07-22 (cont.) Normal [facility] Comment on above: Result Comment: Aver age GFR for 50-59 years old: 93 mL/min/1.73sq m Chronic Kidney Disease: <60 mL/min/1.73sq m Kidney failure: <15 mL/min/1.73sq m eGFR calculated using average adult body mass. Additional eGFR calculator available at: http://www.[employer].Brandcast/multiple_crcl_2012.htm Performed By: #### A NAX, IFX, PHEP, FKLLC, PE #### [employer] [address] [place] [address] [phone] Vp Project: Bala Skelton MD Anion gap [Moles/Vol] 12 mmol/L Normal 9-17 [facility] Comment on above: Performed By: #### A NAX, IFX, PHEP, FKLLC, PE #### [employer] [facility] [place], [place] [phone] Vp Project: Bala Skelton MD Calcium [Mass/Vol] 8.5 mg/dL Low 8.6-10.4 [facility] Comment on above: Performed By: #### A NAX, IFX, PHEP, FKLLC, PE #### [employer] [address] [place] [phone] Vp Project: Bala Skelton MD Chloride [Moles/Vol] 101 mmol/L Normal 98-107 [facility] Comment on above: Performed By: #### A NAX, IFX, PHEP, FKLLC, PE #### [address] [address] Vp Project: Bala Skelton MD CO2 [Moles/Vol] 25 mmol/L Normal 20-31 [facility] Comment on above: Performed By: #### A NAX, IFX, PHEP, FKLLC, PE #### [address] [address] Vp Project: Bala Skelton MD Creatinine [Mass/Vol] 1.06 mg/dL High 0.50-0.90 [facility] Comment on above: Performed By: #### A NAX, IFX, PHEP, FKLLC, PE #### [address] [address] Vp Project: Bala Skelton MD GFR, Amer >60 Normal >60 [facility] Comment on above: Performed By: #### A NAX, IFX, PHEP, FKLLC, PE #### [address] [address] Vp Project: Bala Skelton MD GFR,non Amer 55 mL/min Low >60 [facility] Comment on above: Performed By: #### A NAX, IFX, PHEP, FKLLC, PE #### [address] [address] Vp Project: Bala Skelton MD Glucose [Mass/Vol] 172 mg/dL High 70-99 [facility] Comment on above: Performed By: #### A NAX, IFX, PHEP, FKLLC, PE #### [address] [phone] Vp Project: Bala Skelton MD Potassium [Moles/Vol] 4.1 mmol/L Normal 3.7-5.3 [facility] Comment on above: Performed By: #### A NAX, IFX, PHEP, FKLLC, PE #### [facility] [address] [place], [place] [phone] Vp Project: Bala Skelton MD Sodium [Moles/Vol] 138 mmol/L Normal 135-144 [facility] Comment on above: Performed By: #### A NAX, IFX, PHEP, FKLLC, PE #### [facility] [address] [place], [place] [phone] Vp Project: Bala Skelton MD Urea nitrogen [Mass/Vol] 24 mg/dL High 6-20 [facility] Comment on above: Performed By: #### A NAX, IFX, PHEP, FKLLC, PE #### [facility] [address] [place], [place] [phone] Vp Project: Bala Skelton MD Basic Metabolic Panel w/ Ref romulo to MGon 07-22-2022 Anion gap [Moles/Vol] 12 mmol/L 9 - 17 mmol/L [employer] Calcium [Mass/Vol] 8.5 mg/dL Low 8.6 - 10. 4 mg/dL [facility] Chloride [Moles/Vol] 101 mmol/L 98 - 107 mmol/L [employer] CO2 [Moles/Vol] 25 mmol/L 20 - 31 mmol/L [facility] Creatinine [Mass/Vol] 1.06 mg/dL High 0.5 - 0.9 mg/dL [facility] GFR >60 60 - PINF mL/min [facility] GFR Non- 55 mL/min Low 60 - PINF mL/min [facility] GFR/1.73 sq M.predicted MDRD (S/P/Bld) [Vol rate/Area] [facility] Comment on above: Average GFR for 50-5 9 years old: 93 mL/min/1.73sq m Chronic Kidney Disease: <60 mL/min/1.73sq m Kidney failure: <15 mL/min/1.73sq m eGFR calculated using average adult body mass. Additional eGFR calculator available at: http://www.[employer]/multiple_crcl_2012.htm Glucose [Mass/Vol] 172 mg/dL High 70 - 99 mg/dL [facility] Interpretation and review of laboratory results Abnormal [facility] Potassium [Moles/Vol] 4.1 mmol/L 3.7 - 5.3 mmol/L [facility] Sodium [Moles/Vol] 138 mmol/L 135 - 144 mmol/L [facility] [employer] Urea nitrogen (BldV) [Mass/Vol] 24 mg/dL High 6 - 20 mg/dL [facility] Electrophoresis Protein, Ser umon 07-22-2022 Albumin % 57 % 45 - 65 % [facility] Albumin [Mass/Vol] 3.6 g/dL 3.2 - 5.2 g/dL [facility] [employer] Alpha 1 % 4 % 3 - 6 % [facility] [employer] Alpha 2 % 15 % High 6 - 13 % [facility] Mifyy-0-Npzgidhx 0.2 g/dL 0.1 - 0.4 g/dL [facility] Fjcvx-4-Rcelbwne 0.9 g/dL 0.5 - 0.9 g/dL [facility] Beta Globulin 0.9 g/dL 0.5 - 1.1 g/dL [facility] [employer] Beta Percent 14 % 11 - 19 % [facility] Free PSA/Total PSA [Mass fraction] 6.3 g/dL Low 6.4 - 8.3 g/dL [facility] Gamma Globulin 0.6 g/dL 0.5 - 1.5 g/dL [facility] Gamma Globulin % 10 % 9 - 20 % [facility] Protein Electrophoresis, Serum NORMAL ELECTROPHORETIC PATTERN [facility] Comment on above: IMMUNOFIXATION IS NE GATIVE FOR MONOCLONAL IMMUNOGLOBULIN. Total Prot. Sum 6.2 g/dL Low 6.3 - 8.2 g/dL [facility] [employer] Total Prot. Sum,% 100 % 98 - 102 % [facility] [employer] Hepatitis Acute [facility] 07-22 Hep A Ab,IgM Non-Reactive Normal NR [facility] Comment on above: Performed By: #### A NAX, IFX, PHEP, FKLLC, PE #### [employer] [address] [place] [address] [phone] Vp Project: Bala Skelton MD Hep B Core Ab,IgM Non-Reactive Normal NR [facility] Comment on above: Performed By: #### A NAX, IFX, PHEP, FKLLC, PE #### [employer] [address] [place] [address] [phone] Vp Project: Bala Skelton MD Hep B Surf Ag Non-Reactive Normal [facility] Comment on above: Performed By: #### A NAX, IFX, PHEP, FKLLC, PE #### [employer] [address] [place] [address] [phone] Vp Project: Bala Skelton MD Hep C Ab Non-Reactive Normal [facility] Comment on above: Result Comment: The hepatitis [...] A NAX, IFX, PHEP, FKLLC, PE #### [employer] [address] [place] [address] [phone] Vp Project: Bala Skelton MD Hepatitis Panel, Acute HAV IgM IA Qn (S) Non-Reactive NONREACTIVE [facility] Hep B Core Ab, IgM Non-Reactive NONREACTIVE [facility] Hepatitis B Surface Ag Non-Reactive NONREACTIVE [facility] Hepatitis C Ab Non-Reactive NONREACTIVE [facility] Comment on above: The hepatitis C procedure [...] recommended by ordering HCV RNA by PCR. [employer] serum profile on 07-22-2022 Serum IFX Interp IMMUNOFIXATION IS NEGATIVE FOR MONOCLONAL IMMUNOGLOBULIN. [facility] Immunofixation urine random profileon 07-22-2022 Urine IFX Interp IMMUNOFIXATION IS NEGATIVE FOR MONOCLONAL IMMUNOGLOBULIN. [facility] Urine IFX Specimen .URINE [facility] Immunofixation,Bloodon 07-22 IFX - Interpret. IMMUNOFIXATION IS NEGATIVE FOR MONOCLONAL IMMUNOGLOBULIN. [facility] Comment on above: Performed By: #### A NAX, IFX, PHEP, FKLLC, PE #### [facility] [employer] [address] [place] [address] [phone] Vp Project: Bala Skelton MD Immunofixation,Urineon 07-22 Ur. IFX-Interpret IMMUNOFIXATION IS NEGATIVE FOR MONOCLONAL IMMUNOGLOBULIN. [facility] Comment on above: Performed By: #### A NAX, IFX, PHEP, FKLLC, PE #### [facility] [employer] [address] [place] [phone] Vp Project: Bala Skelton MD Laboratory - Cytologyon 07-07 Pathologist Cyto stain Nom (Cvx/Vag) [ID] Reviewed by pathologist: Mary Stovall M.D. [facility] Laboratory - Urinalysison Protein (U) [Mass/Vol] 144 mg/dL [facility] Lactic Acidon 07-22-2022 Interpretation and review of laboratory results Abnormal [facility] Lactic Acid, Whole Blood 2.3 mmol/L High 0.7 - 2.1 mmol/L [facility] Lactic Acid, Whole Blood 1.9 mmol/L 0.7 - 2.1 mmol/L [facility] Lactic Acid,Whole Bl 2.3 mmol/L High 0.7-2.1 [facility] Comment on above: Performed By: #### L ACTIC #### [facility] [employer] [address] [place] [address] Vp Project: Bala Skelton MD Lactic Acid,Whole Bl 1.9 mmol/L Normal 0.7-2.1 [facility] Comment on above: Performed By: #### A NAX, IFX, PHEP, FKLLC, PE #### [facility] [employer] [facility] [place] [address] Vp Project: Bala Skelton MD [facility] No Panel Informationon 07-22 Interpretation and review of laboratory results Abnormal [facility] POC Glucose Fingerstickon Glucose [Mass/Vol] 177 mg/dL High 65 - 105 mg/dL [facility] Glucose [Mass/Vol] 164 mg/dL High 65 - 105 mg/dL [facility] Interpretation and review of laboratory results Abnormal [facility] Prot. Electroph, Blon 2021 Prot. Elect-Interp NORMAL ELECTROPHORET IC PATTERN Normal [facility] Comment on above: Result Comment: IMMU NOFIXATION IS NEGATIVE FOR MONOCLONAL IMMUNOGLOBULIN. Performed By: #### A NAX, IFX, PHEP, FKLLC, PE #### [facility] [employer] [address] [place] [address] Vp Project: Bala Skelton MD Total Prot. Sum 6.2 g/dL Low 6.3-8.2 [facility] Comment on above: Performed By: #### A NAX, IFX, PHEP, FKLLC, PE #### [facility] [employer] [facility] [place] [address] Vp Project: Bala Skelton MD Total Prot. Sum,% 100 % Normal 98-102 [facility] Comment on above: Performed By: #### A NAX, IFX, PHEP, FKLLC, PE #### [facility] [employer] [facility] [place], [place] [phone] Vp Project: Bala Skelton MD Prot. Electrophoresis, Uron 07-22-2022 Pathologist Review: Reviewed by patholog ist: Mary Stovall M.D. [facility] Comment on above: Performed By: #### A NAX, IFX, PHEP, FKLLC, PE #### [facility] [employer] [facility] [place], [place] [phone] Vp Project: Bala Skelton MD Ur.-Prot.Elect-Inte r ELEVATED PROTEIN CONCENTRATION. MOST SERUM PROTEINS ARE DETECTED IN THIS URINE. Normal [facility] Comment on above: Result Comment: USUA LLY OBSERVED WITH MARKEDLY INCREASED NON-SELECTIVE GLOMERULAR PERMEABILITY (i.e. SEVERE GLOMERULAR DISEASE), CONTAMINATION OF URINE WITH BLOOD, OR A COMBINATION OF THESE. A DECREASE IN TUBULAR FUNCTION CANNOT BE RULED OUT. IMMUNOFIXATION IS NEGATIVE FOR MONOCLONAL IMMUNOGLOBULIN. Performed By: #### A NAX, IFX, PHEP, FKLLC, PE #### [place] [address] [place], [place] [phone] Vp Project: Bala Skelton MD Protein Electrophoresis, Uri neon 07-22-2022 P E Interpretation, U ELEVATED PROTEIN CONCENTRATION. MOST SERUM PROTEINS ARE DETECTED IN THIS URINE. USUALLY OBSERVED WITH MARKEDLY INCREASED NON-SELECTIVE GLOMERULAR PERMEABILITY (i.e. SEVERE GLOMERULAR DISEASE), CONTAMINATION OF [facility] [employer] Comment on above: URINE WITH BLOOD, OR A COMBINATION OF THESE. A DECREASE IN TUBULAR FUNCTION CANNOT BE RULED OUT. IMMUNOFIXATION IS NEGATIVE FOR MONOCLONAL IMMUNOGLOBULIN. Pathologist Reviewed by patholog ist: Mary Stovall M.D. [facility] Specimen Type .URINE [facility] [employer] Basic Metab w/rfx MGon 07-21 (cont.) [facility] Comment on above: Result Comment: Aver age GFR for 50-59 years old: 93 mL/min/1.73sq m Chronic Kidney Disease: <60 mL/min/1.73sq m Kidney failure: <15 mL/min/1.73sq m eGFR calculated using average adult body mass. Additional eGFR calculator available at: http://www.[employer]/multiple_crcl_2012.htm Performed By: #### A NAX, IFX, PHEP, FKLLC, PE #### [employer] [address] [place] [address] [phone] Vp Project: Bala Skelton MD (cont.) [facility] Comment on above: Result Comment: Aver age GFR for 50-59 years old: 93 mL/min/1.73sq m Chronic Kidney Disease: <60 mL/min/1.73sq m Kidney failure: <15 mL/min/1.73sq m eGFR calculated using average adult body mass. Additional eGFR calculator available at: http://www.[employer]/multiple_crcl_2012.htm Performed By: #### B C #### [address] [phone] Vp Project: Bala Skelton MD (cont.) [facility] Comment on above: Result Comment: Aver age GFR for 50-59 years old: 93 mL/min/1.73sq m Chronic Kidney Disease: <60 mL/min/1.73sq m Kidney failure: <15 mL/min/1.73sq m eGFR calculated using average adult body mass. Additional eGFR calculator available at: http://www.[employer]/multiple_crcl_2012.htm Performed By: #### A NAX, IFX, PHEP, FKLLC, PE #### [employer] [address] [place] [phone] Vp Project: Bala Skelton MD Anion gap [Moles/Vol] 13 mmol/L Normal 9-17 [facility] Comment on above: Performed By: #### A NAX, IFX, PHEP, FKLLC, PE #### [facility] [address] [place] [phone] Vp Project: Bala Skelton MD Anion gap [Moles/Vol] 13 mmol/L Normal 9-17 [facility] Comment on above: Performed By: #### B C #### [address] [address] Vp Project: Bala Skelton MD Anion gap [Moles/Vol] 12 mmol/L Normal 9-17 [facility] Comment on above: Performed By: #### A NAX, IFX, PHEP, FKLLC, PE #### [facility] [employer] [address] [place] [phone] Vp Project: Bala Skelton MD Calcium [Mass/Vol] 8.4 mg/dL Low 8.6-10.4 [facility] Comment on above: Performed By: #### A NAX, IFX, PHEP, FKLLC, PE #### [address] [address] Vp Project: Bala Skelton MD Calcium [Mass/Vol] 8.1 mg/dL Low 8.6-10.4 [facility] Comment on above: Performed By: #### B C #### [address] [address] Vp Project: Bala Skelton MD Calcium [Mass/Vol] 8.3 mg/dL Low 8.6-10.4 [facility] Comment on above: Performed By: #### A NAX, IFX, PHEP, FKLLC, PE #### [facility] [employer] [address] [place] [phone] Vp Project: Bala Skelton MD Chloride [Moles/Vol] 100 mmol/L Normal 98-107 [facility] Comment on above: Performed By: #### A NAX, IFX, PHEP, FKLLC, PE #### [address] [address] Vp Project: Bala Skelton MD Chloride [Moles/Vol] 101 mmol/L Normal 98-107 [facility] Comment on above: Performed By: #### B C #### [address] [address] Vp Project: Bala Skelton MD Chloride [Moles/Vol] 101 mmol/L Normal 98-107 [facility] Comment on above: Performed By: #### A NAX, IFX, PHEP, FKLLC, PE #### [address] [address] Vp Project: Bala Skelton MD CO2 [Moles/Vol] 18 mmol/L Low [address] [place] [address] Comment on above: Performed By: #### A NAX, IFX, PHEP, FKLLC, PE #### [address] [address] Vp Project: Bala Skelton MD CO2 [Moles/Vol] 20 mmol/L Normal [address] [place] [address] Comment on above: Performed By: #### B C #### [address] [address] Vp Project: Bala Skelton MD CO2 [Moles/Vol] 23 mmol/L Normal [address] [place] [address] Comment on above: Performed By: #### A NAX, IFX, PHEP, FKLLC, PE #### [facility] [employer] [address] [place] [address] Vp Project: Bala Skelton MD Creatinine [Mass/Vol] 1.37 mg/dL High 0.50-0.90 [facility] Comment on above: Performed By: #### A NAX, IFX, PHEP, FKLLC, PE #### [facility] [address] [place] [phone] Vp Project: Bala Skelton MD Creatinine [Mass/Vol] 1.28 mg/dL High 0.50-0.90 [facility] Comment on above: Performed By: #### B C #### [address] [address] Vp Project: Bala Skelton MD Creatinine [Mass/Vol] 1.00 mg/dL High 0.50-0.90 [facility] Comment on above: Performed By: #### A NAX, IFX, PHEP, FKLLC, PE #### [address] [address] Vp Project: Bala Skelton MD GFR, Amer 49 mL/min Low >60 [facility] Comment on above: Performed By: #### A NAX, IFX, PHEP, FKLLC, PE #### [address] [address] Vp Project: Bala Skelton MD GFR, Amer 54 mL/min Low >60 [facility] Comment on above: Performed By: #### B C #### [address] [address] Vp Project: Bala Skelton MD GFR, Amer >60 Normal >60 [facility] Comment on above: Performed By: #### A NAX, IFX, PHEP, FKLLC, PE #### [address] [address] Vp Project: Bala Skelton MD GFR,non Amer 41 mL/min Low >60 [facility] Comment on above: Performed By: #### A NAX, IFX, PHEP, FKLLC, PE #### [address] [address] Vp Project: Bala Skelton MD GFR,non Amer 44 mL/min Low >60 [facility] Comment on above: Performed By: #### B C #### [facility] [address] [place] [phone] Vp Project: Bala Skelton MD GFR,non Amer 59 mL/min Low >60 [facility] Comment on above: Performed By: #### A NAX, IFX, PHEP, FKLLC, PE #### [address] [address] Vp Project: Bala Skelton MD Glucose [Mass/Vol] 184 mg/dL High [address] Comment on above: Performed By: #### A NAX, IFX, PHEP, FKLLC, PE #### [address] [address] Vp Project: Bala Skelton MD Glucose [Mass/Vol] 224 mg/dL High 7099 [facility] Comment on above: Performed By: #### B C #### [address] [address] Vp Project: Bala Skelton MD Glucose [Mass/Vol] 157 mg/dL High 7099 [facility] Comment on above: Performed By: #### A NAX, IFX, PHEP, FKLLC, PE #### [address] [address] Vp Project: Bala Skelton MD Potassium [Moles/Vol] 3.8 mmol/L Normal 3.7-5.3 [facility] Comment on above: Performed By: #### A NAX, IFX, PHEP, FKLLC, PE #### [facility] [employer] [address] [place] [address] Vp Project: Bala Skelton MD Potassium [Moles/Vol] 3.8 mmol/L Normal 3.7-5.3 [facility] Comment on above: Performed By: #### B C #### [address] [address] Vp Project: Bala Skelton MD Potassium [Moles/Vol] 3.7 mmol/L Normal 3.7-5.3 [facility] Comment on above: Performed By: #### A NAX, IFX, PHEP, FKLLC, PE #### [address] [address] Vp Project: Bala Skelton MD Sodium [Moles/Vol] 131 mmol/L Low 135-144 [facility] Comment on above: Performed By: #### A NAX, IFX, PHEP, FKLLC, PE #### [address] [address] Vp Project: Bala Skelton MD Sodium [Moles/Vol] 134 mmol/L Low 135-144 [facility] Comment on above: Performed By: #### B C #### [address] [address] Vp Project: Bala Skelton MD Sodium [Moles/Vol] 136 mmol/L Normal 135-144 [facility] Comment on above: Performed By: #### A NAX, IFX, PHEP, FKLLC, PE #### [facility] [employer] [address] [place] [address] Vp Project: Bala Skelton MD Urea nitrogen [Mass/Vol] 27 mg/dL High 6-20 [facility] Comment on above: Performed By: #### A NAX, IFX, PHEP, FKLLC, PE #### [facility] [employer] [address] [place] [address] Vp Project: aBla Skelton MD Urea nitrogen [Mass/Vol] 28 mg/dL High 6-20 [facility] Comment on above: Performed By: #### B C #### [facility] [address] [place], [place] [phone] Vp Project: Bala Skelton MD Urea nitrogen [Mass/Vol] 26 mg/dL High 6-20 [facility] Comment on above: Performed By: #### A NAX, IFX, PHEP, FKLLC, PE #### [facility] [address] [place], [place] [phone] Vp Project: Bala Skelton MD Basic Metabolic Panel w/ Ref romulo to [facility] 07-21-2022 Anion gap [Moles/Vol] 13 mmol/L 9 - 17 mmol/L [facility] [employer] [facility] Anion gap [Moles/Vol] 12 mmol/L 9 - 17 mmol/L [facility] [facility] Calcium [Mass/Vol] 8.1 mg/dL Low 8.6 - 10. 4 mg/dL [facility] [employer] [facility] Calcium [Mass/Vol] 8.3 mg/dL Low 8.6 - 10. 4 mg/dL [facility] Chloride [Moles/Vol] 101 mmol/L 98 - 107 mmol/L [facility] Chloride [Moles/Vol] 101 mmol/L 98 - 107 mmol/L [facility] CO2 [Moles/Vol] 20 mmol/L 20 - 31 mmol/L [facility] CO2 [Moles/Vol] 23 mmol/L 20 - 31 mmol/L [facility] Creatinine [Mass/Vol] 1.28 mg/dL High 0.5 - 0.9 mg/dL [facility] Creatinine [Mass/Vol] 1 mg/dL High 0.5 - 0.9 mg/dL [facility] GFR 54 mL/min Low 60 - PINF mL/min [facility] GFR >60 60 - PINF mL/min [facility] GFR Non- 44 mL/min Low 60 - PINF mL/min [facility] [employer] GFR Non- 59 mL/min Low 60 - PINF mL/min [facility] GFR/1.73 sq M.predicted MDRD (S/P/Bld) [Vol rate/Area] [facility] Comment on above: Average GFR for 50-5 9 years old: 93 mL/min/1.73sq m Chronic Kidney Disease: <60 mL/min/1.73sq m Kidney failure: <15 mL/min/1.73sq m eGFR calculated using average adult body mass. Additional eGFR calculator available at: http://www.LUMO Bodytech/multiple_crcl_2012.htm GFR/1.73 sq M.predicted MDRD (S/P/Bld) [Vol rate/Area] [facility] Comment on above: Average GFR for 50-5 9 years old: 93 mL/min/1.73sq m Chronic Kidney Disease: <60 mL/min/1.73sq m Kidney failure: <15 mL/min/1.73sq m eGFR calculated using average adult body mass. Additional eGFR calculator available at: http://www.[employer]UM[employer]/multiple_crcl_2011.htm Glucose [Mass/Vol] 224 mg/dL High 70 - 99 mg/dL [facility] Glucose [Mass/Vol] 157 mg/dL High 70 - 99 mg/dL [facility] Potassium [Moles/Vol] 3.8 mmol/L 3.7 - 5.3 mmol/L [facility] Potassium [Moles/Vol] 3.7 mmol/L 3.7 - 5.3 mmol/L [facility] Sodium [Moles/Vol] 134 mmol/L Low 135 - 144 mmol/L [facility] Sodium [Moles/Vol] 136 mmol/L 135 - 144 mmol/L [facility] Urea nitrogen (BldV) [Mass/Vol] 28 mg/dL High 6 - 20 mg/dL [facility] Urea nitrogen (BldV) [Mass/Vol] 26 mg/dL High 6 - 20 mg/dL [facility] Immunofixation,Urineon 07-21 Protein (U) [Mass/Vol] 144 mg/dL Normal [facility] Comment on above: Performed By: #### A NAX, IFX, PHEP, FKLLC, PE #### [facility] [employer] [address] [place] [phone] Vp Project: Bala Skelton MD Type of Specimen .URINE Normal [facility] Comment on above: Performed By: #### A NAX, IFX, PHEP, FKLLC, PE #### [facility] [employer] [address] [place] [phone] Vp Project: Bala Skelton MD Lactic Acidon 07-21-2022 Interpretation and review of laboratory results Abnormal [facility] Interpretation and review of laboratory results Abnormal [facility] Lactic Acid, Whole Blood 2.2 mmol/L High 0.7 - 2.1 mmol/L [facility] Lactic Acid, Whole Blood 3.0 mmol/L High 0.7 - 2.1 mmol/L [facility] Lactic Acid, Whole Blood 1.9 mmol/L 0.7 - 2.1 mmol/L [facility] Lactic Acid, Whole Blood 2.5 mmol/L High 0.7 - 2.1 mmol/L [facility] Lactic Acid,Whole Bl 2.2 mmol/L High 0.7-2.1 [facility] Comment on above: Performed By: #### A NAX, IFX, PHEP, FKLLC, PE #### [facility] [employer] [address] [place] [phone] Vp Project: Bala Skelton MD Lactic Acid,Whole Bl 3.0 mmol/L High 0.7-2.1 [facility] Comment on above: Performed By: #### A NAX, IFX, PHEP, FKLLC, PE #### [facility] [employer] [address] [place] [address] Vp Project: Bala Skelton MD Lactic Acid,Whole Bl 1.9 mmol/L Normal 0.7-2.1 [facility] Comment on above: Performed By: #### L ACTIC #### [facility] [address] [place] [address] Vp Project: Bala Skelton MD Lactic Acid,Whole Bl 2.5 mmol/L High 0.7-2.1 [facility] Comment on above: Performed By: #### A NAX, IFX, PHEP, FKLLC, PE #### [facility] [address] [place] [address] Vp Project: Bala Skelton MD [facility] No Panel Informationon 07-21 Interpretation and review of laboratory results Abnormal [facility] Interpretation and review of laboratory results Abnormal [facility] POC Glucose Fingerstickon Glucose [Mass/Vol] 219 mg/dL High 65 - 105 mg/dL [facility] Glucose [Mass/Vol] 227 mg/dL High 65 - 105 mg/dL [facility] Glucose [Mass/Vol] 142 mg/dL High 65 - 105 mg/dL [facility] Glucose [Mass/Vol] 210 mg/dL High 65 - 105 mg/dL [facility] Interpretation and review of laboratory results Abnormal [facility] Interpretation and review of laboratory results Abnormal [facility] Prot. Electroph, Blon 2021 Albumin [Mass/Vol] 3.6 g/dL Normal 3.2-5.2 [facility] Comment on above: Performed By: #### A NAX, IFX, PHEP, FKLLC, PE #### [facility] [address] [place] [address] Vp Project: Bala Skelton MD Albumin, % 57 % Normal 45-65 [facility] Comment on above: Performed By: #### A NAX, IFX, PHEP, FKLLC, PE #### [facility] [address] [place] [address] Vp Project: Bala Skelton MD Mpivc-8-vbbvohlvw 0.2 g/dL Normal 0.1-0.4 [facility] Comment on above: Performed By: #### A NAX, IFX, PHEP, FKLLC, PE #### [address] [address] Vp Project: Bala Skelton MD Qtkbb-5-jwynbfmev,% 4 % Normal 3-6 [facility] Comment on above: Performed By: #### A NAX, IFX, PHEP, FKLLC, PE #### [address] [address] Vp Project: Bala Skelton MD Mdkyj-2-dadbutejo 0.9 g/dL Normal 0.5-0.9 [facility] Comment on above: Performed By: #### A NAX, IFX, PHEP, FKLLC, PE #### [address] [address] Vp Project: Bala Skelton MD Qtfez-1-nqlbbdpcv,% 15 % High 6-13 [facility] Comment on above: Performed By: #### A NAX, IFX, PHEP, FKLLC, PE #### [address] [address] Vp Project: Bala Skelton MD Beta-globulins 0.9 g/dL Normal 0.5-1.1 [facility] Comment on above: Performed By: #### A NAX, IFX, PHEP, FKLLC, PE #### [address] [address] Vp Project: Bala Skelton MD Beta-globulins,% 14 % Normal 11-19 [facility] Comment on above: Performed By: #### A NAX, IFX, PHEP, FKLLC, PE #### [facility] [address] [place] [address] Vp Project: Bala Skelton MD Gamma-globulins 0.6 g/dL Normal 0.5-1.5 [facility] Comment on above: Performed By: #### A NAX, IFX, PHEP, FKLLC, PE #### [facility] [address] [place] [address] Vp Project: Bala Skelton MD Gamma-globulins,% 10 % Normal - [facility] Comment on above: Performed By: #### A NAX, IFX, PHEP, FKLLC, PE #### [facility] [address] [place] [address] Vp Project: Bala Skelton MD Prot. Electrophoresis, Uron 07-21-2022 Total Protein Conc. 144 mg/dL Normal [facility] Comment on above: Performed By: #### A NAX, IFX, PHEP, FKLLC, PE #### [facility] [address] [place] [address] Vp Project: Bala Skelton MD BLOOD GAS, VENOUSon 07-20-20 22 Carboxyhemoglobin 1.4 % 0 - 5 % [facility] [employer] Comment on above: Reference Range: Non-Smokers 0-2% Average Smoker 2-4% Heavy Smoker <10% FIO2 INFORMATION NOT PROVIDED [facility] HCO3 (Bld) [Moles/Vol] 19.6 mmol/L Low 24 - 30 mmol/L [facility] [place] Negative Base Excess, Olaf 5.6 mmol/L High 0 - 2 mmol/L [facility] [place] Oxygen saturation in Blood 74.4 % 60 - 85 % [facility] [place] pCO2, Olaf 39.5 39 - 55 [facility] [place] pH, Olaf 7.316 Low 7.32 - 7.42 [facility] [place] pO2, Olaf 36.9 30 - 50 [facility] Pt Temp 37.0 [facility] Basic Metab w/rfx MGon 07-20 (cont.) [facility] Comment on above: Result Comment: Aver age GFR for 50-59 years old: 93 mL/min/1.73sq m Chronic Kidney Disease: <60 mL/min/1.73sq m Kidney failure: <15 mL/min/1.73sq m eGFR calculated using average adult body mass. Additional eGFR calculator available at: http://www.LUMO Bodytech/multiple_crcl_2012.htm Performed By: #### A NAX, IFX, PHEP, FKLLC, PE #### [facility] [address] [address] Vp Project: Bala Skelton MD (cont.) [facility] Comment on above: Result Comment: Aver age GFR for 50-59 years old: 93 mL/min/1.73sq m Chronic Kidney Disease: <60 mL/min/1.73sq m Kidney failure: <15 mL/min/1.73sq m eGFR calculated using average adult body mass. Additional eGFR calculator available at: http://www.LUM[employer] Bodytech/multiple_crcl_2012.htm Performed By: #### A NAX, IFX, PHEP, FKLLC, PE #### [employer] [address] [place] [address] Vp Project: Bala Skelton MD (cont.) [facility] Comment on above: Result Comment: Aver age GFR for 50-59 years old: 93 mL/min/1.73sq m Chronic Kidney Disease: <60 mL/min/1.73sq m Kidney failure: <15 mL/min/1.73sq m eGFR calculated using average adult body mass. Additional eGFR calculator available at: http://www.LUMO Bodytech/multiple_crcl_2012.htm Performed By: #### A NAX, IFX, PHEP, FKLLC, PE #### [employer] [address] [place] [address] Vp Project: Bala Skelton MD Anion gap [Moles/Vol] 15 mmol/L Normal -17 [facility] Comment on above: Performed By: #### A NAX, IFX, PHEP, FKLLC, PE #### [facility] [address] [place] [address] Vp Project: Bala Skelton MD Anion gap [Moles/Vol] 14 mmol/L Normal -17 [facility] Comment on above: Performed By: #### A NAX, IFX, PHEP, FKLLC, PE #### [facility] [employer] [address] [place] [address] Vp Project: Bala Skelton MD Anion gap [Moles/Vol] 13 mmol/L Normal -17 [facility] Comment on above: Performed By: #### A NAX, IFX, PHEP, FKLLC, PE #### [facility] [employer] [address] [place] [address] Vp Project: Bala Skelton MD Calcium [Mass/Vol] 8.5 mg/dL Low 8.6-10.4 [facility] Comment on above: Performed By: #### A NAX, IFX, PHEP, FKLLC, PE #### [facility] [employer] [address] [place] [address] Vp Project: Bala Skelton MD Calcium [Mass/Vol] 8.2 mg/dL Low 8.6-10.4 [facility] Comment on above: Performed By: #### A NAX, IFX, PHEP, FKLLC, PE #### [facility] [address] [place] [address] Vp Project: Bala Skelton MD Calcium [Mass/Vol] 8.7 mg/dL Normal 8.6-10.4 [facility] Comment on above: Performed By: #### A NAX, IFX, PHEP, FKLLC, PE #### [facility] [address] [place] [address] Vp Project: Bala Skelton MD Chloride [Moles/Vol] 95 mmol/L Low 98-107 [facility] Comment on above: Performed By: #### A NAX, IFX, PHEP, FKLLC, PE #### [facility] [address] [place] [address] Vp Project: Bala Skelton MD Chloride [Moles/Vol] 96 mmol/L Low [address] Comment on above: Performed By: #### A NAX, IFX, PHEP, FKLLC, PE #### [address] [address] Vp Project: Bala Skelton MD Chloride [Moles/Vol] 97 mmol/L Low [address] [facility] Comment on above: Performed By: #### A NAX, IFX, PHEP, FKLLC, PE #### [address] [address] Vp Project: Bala Sketlon MD CO2 [Moles/Vol] 18 mmol/L Low [address] [place] [address] Comment on above: Performed By: #### A NAX, IFX, PHEP, FKLLC, PE #### [address] [address] Vp Project: Bala Skelton MD CO2 [Moles/Vol] 17 mmol/L Low [address] [place] [address] Comment on above: Performed By: #### A NAX, IFX, PHEP, FKLLC, PE #### [address] [address] Vp Project: Bala Skelton MD CO2 [Moles/Vol] 18 mmol/L Low [address] [place] [address] Comment on above: Performed By: #### A NAX, IFX, PHEP, FKLLC, PE #### [facility] [address] [place] [address] Vp Project: Bala Skelton MD Creatinine [Mass/Vol] 2.11 mg/dL High 0.50-0.90 [facility] Comment on above: Performed By: #### A NAX, IFX, PHEP, FKLLC, PE #### [facility] [address] [place] [address] Vp Project: Bala Skelton MD Creatinine [Mass/Vol] 1.68 mg/dL High 0.50-0.90 [facility] Comment on above: Performed By: #### A NAX, IFX, PHEP, FKLLC, PE #### [facility] [address] [place] [address] Vp Project: Bala Skelton MD Creatinine [Mass/Vol] 1.62 mg/dL High 0.50-0.90 [facility] Comment on above: Performed By: #### A NAX, IFX, PHEP, FKLLC, PE #### [facility] [address] [place] [address] Vp Project: Bala Skelton MD GFR, Amer 30 mL/min Low >60 [facility] Comment on above: Performed By: #### A NAX, IFX, PHEP, FKLLC, PE #### [facility] [address] [place] [address] Vp Project: Bala Skelton MD GFR, Amer 39 mL/min Low >60 [facility] Comment on above: Performed By: #### A NAX, IFX, PHEP, FKLLC, PE #### [facility] [address] [place] [address] Vp Project: Bala Skelton MD GFR, Amer 41 mL/min Low >60 [facility] Comment on above: Performed By: #### A NAX, IFX, PHEP, FKLLC, PE #### [facility] [address] [place] [address] Vp Project: Bala Skelton MD GFR,non Amer 25 mL/min Low >60 [facility] Comment on above: Performed By: #### A NAX, IFX, PHEP, FKLLC, PE #### [facility] [address] [place] [address] Vp Project: Bala Skelton MD GFR,non Amer 32 mL/min Low >60 [facility] Comment on above: Performed By: #### A NAX, IFX, PHEP, FKLLC, PE #### [address] [address] Vp Project: Bala Skelton MD GFR,non Amer 34 mL/min Low >60 [facility] Comment on above: Performed By: #### A NAX, IFX, PHEP, FKLLC, PE #### [address] [address] Vp Project: Bala Skelton MD Glucose [Mass/Vol] 416 mg/dL Critically high 70-99 [facility] Comment on above: Performed By: #### A NAX, IFX, PHEP, FKLLC, PE #### [facility] [address] [place] [address] Vp Project: Bala Skelton MD Glucose [Mass/Vol] 427 mg/dL Critically high 70-99 [facility] Comment on above: Performed By: #### A NAX, IFX, PHEP, FKLLC, PE #### [facility] [address] [place] [address] Vp Project: Bala Skelton MD Glucose [Mass/Vol] 360 mg/dL High 70-99 [facility] Comment on above: Performed By: #### A NAX, IFX, PHEP, FKLLC, PE #### [facility] [address] [place] [address] Vp Project: Bala Skelton MD Potassium [Moles/Vol] 5.0 mmol/L Normal 3.7-5.3 [facility] Comment on above: Performed By: #### A NAX, IFX, PHEP, FKLLC, PE #### [facility] [address] [place] [address] Vp Project: Bala Skelton MD Potassium [Moles/Vol] 4.4 mmol/L Normal 3.7-5.3 [facility] Comment on above: Performed By: #### A NAX, IFX, PHEP, FKLLC, PE #### [address] [address] Vp Project: Bala Skelton MD Potassium [Moles/Vol] 5.1 mmol/L Normal 3.7-5.3 [facility] Comment on above: Performed By: #### A NAX, IFX, PHEP, FKLLC, PE #### [facility] [address] [place] [address] Vp Project: Bala Skelton MD Sodium [Moles/Vol] 128 mmol/L Low 135-144 [facility] Comment on above: Performed By: #### A NAX, IFX, PHEP, FKLLC, PE #### [facility] [address] [place] [address] Vp Project: Bala Skelton MD Sodium [Moles/Vol] 127 mmol/L Low 135-144 [facility] Comment on above: Performed By: #### A NAX, IFX, PHEP, FKLLC, PE #### [facility] [address] [place] [address] Vp Project: Bala Skelton MD Sodium [Moles/Vol] 128 mmol/L Low 135-144 [facility] Comment on above: Performed By: #### A NAX, IFX, PHEP, FKLLC, PE #### [facility] [place], [place] [phone] Vp Project: Bala Skelton MD Urea nitrogen [Mass/Vol] 38 mg/dL [address] Comment on above: Performed By: #### A NAX, IFX, PHEP, FKLLC, PE #### [facility] [address] [place], [place] [phone] Vp Project: Bala Skelton MD Urea nitrogen [Mass/Vol] 33 mg/dL [address] Comment on above: Performed By: #### A NAX, IFX, PHEP, FKLLC, PE #### [facility] [address] [place] [address] [phone] Vp Project: Bala Skelton MD Urea nitrogen [Mass/Vol] 32 mg/dL [address] Comment on above: Performed By: #### A NAX, IFX, PHEP, FKLLC, PE #### [facility] [address] [place] [address] [phone] Vp Project: Bala Skelton MD Basic Metabolic Panel 07-07 Anion gap [Moles/Vol] 16 mmol/L 9 - 17 mmol/L [facility] Calcium [Mass/Vol] 8.2 mg/dL Low 8.6 - 10. 4 mg/dL [employer] [facility] [facility] Chloride [Moles/Vol] 95 mmol/L Low 98 - 107 mmol/L [facility] CO2 [Moles/Vol] 17 mmol/L Low 20 - 31 mmol/L [facility] Creatinine [Mass/Vol] 2.35 mg/dL High 0.5 - 0.9 mg/dL [facility] GFR 27 mL/min Low 60 - PINF mL/min [facility] GFR Non- 22 mL/min Low 60 - PINF mL/min [facility] GFR/1.73 sq M.predicted MDRD (S/P/Bld) [Vol rate/Area] [facility] [employer] Comment on above: Average GFR for 50-5 9 years old: 93 mL/min/1.73sq m Chronic Kidney Disease: <60 mL/min/1.73sq m Kidney failure: <15 mL/min/1.73sq m eGFR calculated using average adult body mass. Additional eGFR calculator available at: http://www.LUM[employer] Body[employer]/multiple_crcl_2012.htm Glucose [Mass/Vol] 439 mg/dL Critically high 70 - 99 mg/d L [facility] [employer] Potassium [Moles/Vol] 5.2 mmol/L 3.7 - 5.3 mmol/L [facility] [employer] Sodium [Moles/Vol] 128 mmol/L Low 135 - 144 mmol/L [facility] [employer] Urea nitrogen (BldV) [Mass/Vol] 37 mg/dL High 6 - 20 mg/dL [facility] Basic Metabolic Panel w/ Ref romulo to MGon 07-20-2022 Anion gap [Moles/Vol] 15 mmol/L 9 - 17 mmol/L [facility] Anion gap [Moles/Vol] 14 mmol/L 9 - 17 mmol/L [facility] Anion gap [Moles/Vol] 13 mmol/L 9 - 17 mmol/L [facility] [employer] Anion gap [Moles/Vol] 13 mmol/L 9 - 17 mmol/L [facility] [employer] Calcium [Mass/Vol] 8.5 mg/dL Low 8.6 - 10. 4 mg/dL [facility] [employer] Calcium [Mass/Vol] 8.2 mg/dL Low 8.6 - 10. 4 mg/dL [facility] [employer] Calcium [Mass/Vol] 8.7 mg/dL 8.6 - 10. 4 mg/dL [facility] [employer] Calcium [Mass/Vol] 8.4 mg/dL Low 8.6 - 10. 4 mg/dL [facility] [employer] Chloride [Moles/Vol] 96 mmol/L Low 98 - 107 mmol/L [facility] Chloride [Moles/Vol] 97 mmol/L Low 98 - 107 mmol/L [facility] Chloride [Moles/Vol] 100 mmol/L 98 - 107 mmol/L [facility] CO2 [Moles/Vol] 18 mmol/L Low 20 - 31 mmol/L [facility] CO2 [Moles/Vol] 17 mmol/L Low 20 - 31 mmol/L [facility] CO2 [Moles/Vol] 18 mmol/L Low 20 - 31 mmol/L [facility] CO2 [Moles/Vol] 18 mmol/L Low 20 - 31 mmol/L [facility] Creatinine [Mass/Vol] 2.11 mg/dL High 0.5 - 0.9 mg/dL [facility] Creatinine [Mass/Vol] 1.68 mg/dL High 0.5 - 0.9 mg/dL [facility] Creatinine [Mass/Vol] 1.62 mg/dL High 0.5 - 0.9 mg/dL [facility] Creatinine [Mass/Vol] 1.37 mg/dL High 0.5 - 0.9 mg/dL [facility] GFR 30 mL/min Low 60 - PINF mL/min [facility] GFR 39 mL/min Low 60 - PINF mL/min [facility] GFR 41 mL/min Low 60 - PINF mL/min [facility] GFR 49 mL/min Low 60 - PINF mL/min [facility] GFR Non- 25 mL/min Low 60 - PINF mL/min [facility] GFR Non- 32 mL/min Low 60 - PINF mL/min [facility] GFR Non- 34 mL/min Low 60 - PINF mL/min [facility] GFR Non- 41 mL/min Low 60 - PINF mL/min [facility] GFR/1.73 sq M.predicted MDRD (S/P/Bld) [Vol rate/Area] [facility] Comment on above: Average GFR for 50-5 9 years old: 93 mL/min/1.73sq m Chronic Kidney Disease: <60 mL/min/1.73sq m Kidney failure: <15 mL/min/1.73sq m eGFR calculated using average adult body mass. Additional eGFR calculator available at: http://www.[employer]/multiple_crcl_2012.htm GFR/1.73 sq M.predicted MDRD (S/P/Bld) [Vol rate/Area] [employer] Comment on above: Average GFR for 50-5 9 years old: 93 mL/min/1.73sq m Chronic Kidney Disease: <60 mL/min/1.73sq m Kidney failure: <15 mL/min/1.73sq m eGFR calculated using average adult body mass. Additional eGFR calculator available at: http://www.[employer]/WAYN_crcl_2012.htm GFR/1.73 sq M.predicted MDRD (S/P/Bld) [Vol rate/Area] [employer] Comment on above: Average GFR for 50-5 9 years old: 93 mL/min/1.73sq m Chronic Kidney Disease: <60 mL/min/1.73sq m Kidney failure: <15 mL/min/1.73sq m eGFR calculated using average adult body mass. Additional eGFR calculator available at: http://www.[employer]/WAYN_crcl_2012.htm GFR/1.73 sq M.predicted MDRD (S/P/Bld) [Vol rate/Area] [employer] Comment on above: Average GFR for 50-5 9 years old: 93 mL/min/1.73sq m Chronic Kidney Disease: <60 mL/min/1.73sq m Kidney failure: <15 mL/min/1.73sq m eGFR calculated using average adult body mass. Additional eGFR calculator available at: http://www.[employer]/WAYN_crcl_2012.htm Glucose [Mass/Vol] 416 mg/dL Critically high 70 - 99 mg/d L [employer] Glucose [Mass/Vol] 360 mg/dL High 70 - 99 mg/dL [facility] [employer] Glucose [Mass/Vol] 184 mg/dL High 70 - 99 mg/dL [facility] Interpretation and review of laboratory results Abnormal [facility] Potassium [Moles/Vol] 5.0 mmol/L 3.7 - 5.3 mmol/L [facility] Potassium [Moles/Vol] 4.4 mmol/L 3.7 - 5.3 mmol/L [facility] Potassium [Moles/Vol] 5.1 mmol/L 3.7 - 5.3 mmol/L [facility] Potassium [Moles/Vol] 3.8 mmol/L 3.7 - 5.3 mmol/L [facility] Sodium [Moles/Vol] 127 mmol/L Low 135 - 144 mmol/L [facility] Sodium [Moles/Vol] 128 mmol/L Low 135 - 144 mmol/L [facility] Sodium [Moles/Vol] 131 mmol/L Low 135 - 144 mmol/L [facility] Urea nitrogen (BldV) [Mass/Vol] 38 mg/dL High 6 - 20 mg/dL [facility] Urea nitrogen (BldV) [Mass/Vol] 33 mg/dL High 6 - 20 mg/dL [facility] Urea nitrogen (BldV) [Mass/Vol] 32 mg/dL High 6 - 20 mg/dL [facility] Urea nitrogen (BldV) [Mass/Vol] 27 mg/dL High 6 - 20 mg/dL [facility] Basic Metabolic Profon 07-20 (cont.) Normal [facility] Comment on above: Result Comment: Aver age GFR for 50-59 years old: 93 mL/min/1.73sq m Chronic Kidney Disease: <60 mL/min/1.73sq m Kidney failure: <15 mL/min/1.73sq m eGFR calculated using average adult body mass. Additional eGFR calculator available at: http://www.[employer].com/multiple_crcl_2012.htm Performed By: #### A NAX, IFX, PHEP, FKLLC, PE #### [facility] [address] [place] [address] Vp Project: Bala Skelton MD Anion gap [Moles/Vol] 16 mmol/L Normal 9-17 [facility] Comment on above: Performed By: #### A NAX, IFX, PHEP, FKLLC, PE #### [facility] [employer] [address] [place] [phone] Vp Project: Bala Skelton MD Calcium [Mass/Vol] 8.2 mg/dL Low 8.6-10.4 [facility] Comment on above: Performed By: #### A NAX, IFX, PHEP, FKLLC, PE #### [address] [address] Vp Project: Bala Skelton MD Chloride [Moles/Vol] 95 mmol/L Low 98-107 [facility] Comment on above: Performed By: #### A NAX, IFX, PHEP, FKLLC, PE #### [facility] [employer] [address] [place] [phone] Vp Project: Bala Skelton MD CO2 [Moles/Vol] 17 mmol/L Low 20-31 [facility] Comment on above: Performed By: #### A NAX, IFX, PHEP, FKLLC, PE #### [facility] [employer] [address] [place] [phone] Vp Project: Bala Skelton MD Creatinine [Mass/Vol] 2.35 mg/dL High 0.50-0.90 [facility] Comment on above: Performed By: #### A NAX, IFX, PHEP, FKLLC, PE #### [facility] [employer] [address] [place] [phone] Vp Project: Bala Skelton MD GFR, Amer 27 mL/min Low >60 [facility] Comment on above: Performed By: #### A NAX, IFX, PHEP, FKLLC, PE #### [facility] [employer] [address] [place] [phone] Vp Project: Bala Skelton MD GFR,non Amer 22 mL/min Low >60 [facility] Comment on above: Performed By: #### A NAX, IFX, PHEP, FKLLC, PE #### [address] [address] Vp Project: Bala Skelton MD Glucose [Mass/Vol] 439 mg/dL Critically high 70-99 [facility] Comment on above: Performed By: #### A NAX, IFX, PHEP, FKLLC, PE #### [address] [address] Vp Project: Bala Skelton MD Potassium [Moles/Vol] 5.2 mmol/L Normal 3.7-5.3 [facility] Comment on above: Performed By: #### A NAX, IFX, PHEP, FKLLC, PE #### [facility] [employer] [address] [place] [phone] Vp Project: Bala Skelton MD Sodium [Moles/Vol] 128 mmol/L Low 135-144 [facility] Comment on above: Performed By: #### A NAX, IFX, PHEP, FKLLC, PE #### [address] [address] Vp Project: Bala Skelton MD Urea nitrogen [Mass/Vol] 37 mg/dL High 6-20 [facility] Comment on above: Performed By: #### A NAX, IFX, PHEP, FKLLC, PE #### [facility] [employer] [address] [place] [phone] Vp Project: Bala Skelton MD C3on 07-20-2022 C3 209 mg/dL High 90-180 [facility] Comment on above: Performed By: #### A NAX, IFX, PHEP, FKLLC, PE #### [facility] [employer] [facility] [place], [place] [phone] Vp Project: Bala Skelton MD C3 Complementon 07-20-2022 Complement C3 209 mg/dL High 90 - 180 mg/dL [facility] C4on 07-20-2022 C4 41 mg/dL High 10-40 [facility] Comment on above: Performed By: #### A NAX, IFX, PHEP, FKLLC, PE #### [facility] [address] [place], [place] [phone] Vp Project: Bala Skelton MD C4 Complementon 07-20-2022 Complement C4 41 mg/dL High 10 - 40 mg/dL [facility] CBC with Auto Differentialon 07-20-2022 Absolute Eos # 0.12 [facility] Absolute Eos # 0.00 [facility] Absolute Eos # 0.00 [facility] Absolute Immature Granulocyte 0.12 [facility] Absolute Immature Granulocyte 0.10 [facility] Absolute Immature Granulocyte 0.07 [facility] Absolute Lymph # 0.49 Low [facility] Absolute Lymph # 0.31 Low [facility] Absolute Lymph # 0.46 Low [facility] Absolute Preble # 0.00 Low [facility] Absolute Preble # 0.41 [facility] Absolute Preble # 0.33 [facility] Basophils (Bld) [#/Vol] 0.00 10*3/uL [facility] Basophils (Bld) [#/Vol] 0.00 10*3/uL [facility] Basophils (Bld) [#/Vol] 0.00 10*3/uL [facility] Basophils/100 WBC (Bld) 0 % 0 - 2 % [facility] Basophils/100 WBC (Bld) 0 % 0 - 2 % [facility] Eosinophils/100 WBC (Bld) 1 % 1 - 4 % [facility] Eosinophils/100 WBC (Bld) 0 % Low 1 - 4 % [facility] Eosinophils/100 WBC (Bld) 0 % Low 1 - 4 % [facility] Hematocrit (Bld) [Volume fraction] 31.3 % Low 36.3 - 47.1 % [facility] Hematocrit (Bld) [Volume fraction] 32.4 % Low 36.3 - 47.1 % [facility] Hematocrit (Bld) [Volume fraction] 33.3 % Low 36.3 - 47.1 % [facility] Hemoglobin (Bld) [Mass/Vol] 10.6 g/dL Low 11.9 - 15.1 g/dL [facility] Hemoglobin (Bld) [Mass/Vol] 11.0 g/dL Low 11.9 - 15.1 g/dL [facility] Hemoglobin (Bld) [Mass/Vol] 11.0 g/dL Low 11.9 - 15.1 g/dL [facility] Immature granulocytes/100 WBC (Bld) 1 % High 0 [facility] Immature granulocytes/100 WBC (Bld) 1 % High 0 [facility] Lymphocytes/100 WBC (Bld) 4 % Low 24 - 44 % [facility] Lymphocytes/100 WBC (Bld) 3 % Low 24 - 44 % [facility] Lymphocytes/100 WBC (Bld) 7 % Low 24 - 44 % [facility] MCH (RBC) [Entitic mass] 29.3 pg 25.2 - 33.[address] [facility] MCH (RBC) [Entitic mass] 29.4 pg 25.2 - 33.5 pg [facility] MCH (RBC) [Entitic mass] 28.6 pg 25.2 - 33.5 pg [facility] MCHC (RBC) [Mass/Vol] 33.9 g/dL 28.4 - 34.8 g/dL [facility] MCHC (RBC) [Mass/Vol] 34.0 g/dL 28.4 - 34.8 g/dL [facility] MCHC (RBC) [Mass/Vol] 33.0 g/dL 28.4 - 34.8 g/dL [facility] MCV (RBC) [Entitic vol] 86.5 fL 82.6 - 102.9 fL [facility] MCV (RBC) [Entitic vol] 86.6 fL 82.6 - 102.9 fL [facility] MCV (RBC) [Entitic vol] 86.7 fL 82.6 - 102.9 fL [facility] Monocytes/100 WBC (Bld) 0 % Low 1 - 7 % [facility] Monocytes/100 WBC (Bld) 4 % 1 - 7 % [facility] Monocytes/100 WBC (Bld) 5 % 1 - 7 % [facility] Morphology Bran (Bld) [Interp] Normal [facility] Morphology Bran (Bld) [Interp] Normal [facility] NRBC Automated 0.0 0.0 per 100 WBC [facility] NRBC Automated 0.0 0.0 per 100 WBC [facility] NRBC Automated 0.0 0.0 per 100 WBC [facility] Platelet distribution width (Bld) [Ratio] 13.5 % 11.8 - 14.4 % [facility] Platelet distribution width (Bld) [Ratio] 13.6 % 11.8 - 14.4 % [facility] Platelet distribution width (Bld) [Ratio] 13.8 % 11.8 - 14.4 % [facility] Platelet mean volume (Bld) [Entitic vol] 10.2 fL 8.1 - 13.5 fL [facility] Platelet mean volume (Bld) [Entitic vol] 10.4 fL 8.1 - 13.5 fL [facility] Platelets (Bld) [#/Vol] 280 10*3/uL [facility] Platelets (Bld) [#/Vol] 252 10*3/uL [facility] Platelets (Bld) [#/Vol] See Reflexed IPF Result [facility] RBC (Bld) [#/Vol] 3.62 10*6/uL Low 3.95 - 5.1 1 m/uL [facility] RBC (Bld) [#/Vol] 3.74 10*6/uL Low 3.95 - 5.1 1 m/uL [facility] RBC (Bld) [#/Vol] 3.84 10*6/uL Low 3.95 - 5.1 1 m/uL [facility] Segmented neutrophils/100 WBC (Bld) 94 % High 36 - 66 % [facility] Segmented neutrophils/100 WBC (Bld) 92 % High 36 - 66 % [facility] Segmented neutrophils/100 WBC (Bld) 87 % High 36 - 66 % [facility] Segs Absolute 11.57 High [facility] Segs Absolute 9.38 High [facility] Segs Absolute 5.74 [facility] WBC (Bld) [#/Vol] 12.3 10*3/uL High [facility] WBC (Bld) [#/Vol] 10.2 10*3/uL [facility] WBC (Bld) [#/Vol] 6.6 10*3/uL [facility] CBC with Diffon 07-20-2022 Abs. Basophil 0.00 k/uL Normal 0.0-0.2 [facility] Comment on above: Performed By: #### A NAX, IFX, PHEP, FKLLC, PE #### [employer] [address] [place] [address] Vp Project: Bala Skelton MD Abs. Basophil 0.00 k/uL Normal 0.0-0.2 [facility] Comment on above: Performed By: #### A NAX, IFX, PHEP, FKLLC, PE #### [employer] [address] [place] [address] Vp Project: Bala Skelton MD Abs. Basophil 0.00 k/uL Normal 0.0-0.2 [facility] Comment on above: Performed By: #### A NAX, IFX, PHEP, FKLLC, PE #### [employer] [address] [place], [place] [phone] Vp Project: Bala Skelton MD Abs.Imm.Granulocyte 0.12 k/uL Normal 0.00-0.30 [facility] Comment on above: Performed By: #### A NAX, IFX, PHEP, FKLLC, PE #### [address] [address] Vp Project: Bala Skelton MD Abs.Imm.Granulocyte 0.10 k/uL Normal 0.00-0.30 [facility] Comment on above: Performed By: #### A NAX, IFX, PHEP, FKLLC, PE #### [address] [address] Vp Project: Bala Skelton MD Abs.Imm.Granulocyte 0.07 k/uL Normal 0.00-0.30 [facility] Comment on above: Performed By: #### A NAX, IFX, PHEP, FKLLC, PE #### [address] [address] Vp Project: Bala Skelton MD Abs.Neutrophil (Seg) 11.57 k/uL High 1.8-7.7 [facility] Comment on above: Performed By: #### A NAX, IFX, PHEP, FKLLC, PE #### [address] [address] Vp Project: Bala Skelton MD Abs.Neutrophil (Seg) 9.38 k/uL High 1.8-7.7 [facility] Comment on above: Performed By: #### A NAX, IFX, PHEP, FKLLC, PE #### [address] [address] Vp Project: Bala Skelton MD Abs.Neutrophil (Seg) 5.74 k/uL Normal 1.8-7.7 [facility] Comment on above: Performed By: #### A NAX, IFX, PHEP, FKLLC, PE #### [address] [address] Vp Project: Bala Skelton MD Basophils/100 WBC (Bld) 0 % Normal 0-2 [facility] Comment on above: Performed By: #### A NAX, IFX, PHEP, FKLLC, PE #### [address] [address] Vp Project: Bala Skelton MD Basophils/100 WBC (Bld) 0 % Normal 0-2 [facility] Comment on above: Performed By: #### A NAX, IFX, PHEP, FKLLC, PE #### [address] [address] Vp Project: Bala Skelton MD Basophils/100 WBC (Bld) 0 % Normal 0-2 [facility] Comment on above: Performed By: #### A NAX, IFX, PHEP, FKLLC, PE #### [address] [address] Vp Project: Bala Skelton MD Eosinophils (Bld) [#/Vol] 0.12 10*3/uL Normal 0.0-0.4 [facility] Comment on above: Performed By: #### A NAX, IFX, PHEP, FKLLC, PE #### [address] [address] Vp Project: Bala Skelton MD Eosinophils (Bld) [#/Vol] 0.00 10*3/uL Normal 0.0-0.4 [facility] Comment on above: Performed By: #### A NAX, IFX, PHEP, FKLLC, PE #### [address] [address] Vp Project: Bala Skelton MD Eosinophils (Bld) [#/Vol] 0.00 10*3/uL Normal 0.0-0.4 [facility] Comment on above: Performed By: #### A NAX, IFX, PHEP, FKLLC, PE #### [facility] [address] [place] [phone] Vp Project: Bala Skelton MD Eosinophils/100 WBC (Bld) 1 % Normal [address] [place] [address] Comment on above: Performed By: #### A NAX, IFX, PHEP, FKLLC, PE #### [address] [address] Vp Project: Bala Skelton MD Eosinophils/100 WBC (Bld) 0 % Low [address] [place] [address] Comment on above: Performed By: #### A NAX, IFX, PHEP, FKLLC, PE #### [facility] [employer] [address] [place] [phone] Vp Project: Bala Skelton MD Eosinophils/100 WBC (Bld) 0 % Low [address] [place] [address] Comment on above: Performed By: #### A NAX, IFX, PHEP, FKLLC, PE #### [address] [address] Vp Project: Bala Skelton MD Erythrocyte distribution width (RBC) [Ratio] 13.5 % Normal 11.8-14.4 [facility] Comment on above: Performed By: #### A NAX, IFX, PHEP, FKLLC, PE #### [address] [address] Vp Project: Bala Skelton MD Erythrocyte distribution width (RBC) [Ratio] 13.6 % Normal 11.8-14.4 [facility] Comment on above: Performed By: #### A NAX, IFX, PHEP, FKLLC, PE #### [facility] [employer] [address] [place] [phone] Vp Project: Bala Skelton MD Erythrocyte distribution width (RBC) [Ratio] 13.8 % Normal 11.8-14.4 [facility] Comment on above: Performed By: #### A NAX, IFX, PHEP, FKLLC, PE #### [facility] [address] [place] [phone] Vp Project: Bala Skelton MD Hematocrit (Bld) [Volume fraction] 31.3 % Low 36.3-47.1 [facility] Comment on above: Performed By: #### A NAX, IFX, PHEP, FKLLC, PE #### [facility] [address] [place] [phone] Vp Project: Bala Skelton MD Hematocrit (Bld) [Volume fraction] 32.4 % Low 36.3-47.1 [facility] Comment on above: Performed By: #### A NAX, IFX, PHEP, FKLLC, PE #### [facility] [address] [place] [address] Vp Project: Bala Skelton MD Hematocrit (Bld) [Volume fraction] 33.3 % Low 36.3-47.1 [facility] Comment on above: Performed By: #### A NAX, IFX, PHEP, FKLLC, PE #### [facility] [address] [place] [address] Vp Project: Bala Skelton MD Hemoglobin (Bld) [Mass/Vol] 10.6 g/dL Low 11.9-15.1 [facility] Comment on above: Performed By: #### A NAX, IFX, PHEP, FKLLC, PE #### [facility] [address] [place] [address] Vp Project: Bala Skelton MD Hemoglobin (Bld) [Mass/Vol] 11.0 g/dL Low 11.9-15.1 [facility] Comment on above: Performed By: #### A NAX, IFX, PHEP, FKLLC, PE #### [address] [address] Vp Project: Bala Skelton MD Hemoglobin (Bld) [Mass/Vol] 11.0 g/dL Low 11.9-15.1 [facility] Comment on above: Performed By: #### A NAX, IFX, PHEP, FKLLC, PE #### [address] [address] Vp Project: Bala Skelton MD Immature granulocytes/100 WBC (Bld) 1 % High 0 [facility] Comment on above: Performed By: #### A NAX, IFX, PHEP, FKLLC, PE #### [address] [address] Vp Project: Bala Skelton MD Immature granulocytes/100 WBC (Bld) 1 % High 0 [facility] Comment on above: Performed By: #### A NAX, IFX, PHEP, FKLLC, PE #### [address] [address] Vp Project: Bala Skelton MD Immature granulocytes/100 WBC (Bld) 1 % High 0 [facility] Comment on above: Performed By: #### A NAX, IFX, PHEP, FKLLC, PE #### [address] [address] Vp Project: Bala Skelton MD Lymphocytes (Bld) [#/Vol] 0.49 10*3/uL Low 1.0-4.8 [facility] Comment on above: Performed By: #### A NAX, IFX, PHEP, FKLLC, PE #### [address] [address] Vp Project: Bala Skelton MD Lymphocytes (Bld) [#/Vol] 0.31 10*3/uL Low 1.0-4.8 [facility] Comment on above: Performed By: #### A NAX, IFX, PHEP, FKLLC, PE #### [address] [address] Vp Project: Bala Skelton MD Lymphocytes (Bld) [#/Vol] 0.46 10*3/uL Low 1.0-4.8 [facility] Comment on above: Performed By: #### A NAX, IFX, PHEP, FKLLC, PE #### [address] [address] Vp Project: Bala Skelton MD Lymphocytes/100 WBC (Bld) 4 % Low [address] [place] [address] Comment on above: Performed By: #### A NAX, IFX, PHEP, FKLLC, PE #### [address] [address] Vp Project: Bala Skelton MD Lymphocytes/100 WBC (Bld) 3 % Low [address] [place] [address] Comment on above: Performed By: #### A NAX, IFX, PHEP, FKLLC, PE #### [address] [address] Vp Project: Bala Skelton MD Lymphocytes/100 WBC (Bld) 7 % Low [address] [place] [address] Comment on above: Performed By: #### A NAX, IFX, PHEP, FKLLC, PE #### [facility] [employer] [address] [place] [phone] Vp Project: Bala Skelton MD MCH (RBC) [Entitic mass] 29.3 pg Normal 25.2-33.5 [facility] Comment on above: Performed By: #### A NAX, IFX, PHEP, FKLLC, PE #### [address] [address] Vp Project: Bala Skelton MD MCH (RBC) [Entitic mass] 29.4 pg Normal 25.2-33.5 [facility] Comment on above: Performed By: #### A NAX, IFX, PHEP, FKLLC, PE #### [address] [address] Vp Project: Bala Skelton MD MCH (RBC) [Entitic mass] 28.6 pg Normal 25.2-33.5 [facility] Comment on above: Performed By: #### A NAX, IFX, PHEP, FKLLC, PE #### [address] [address] Vp Project: Bala Skelton MD MCHC (RBC) [Mass/Vol] 33.9 g/dL Normal 28.4-34.8 [facility] Comment on above: Performed By: #### A NAX, IFX, PHEP, FKLLC, PE #### [address] [address] Vp Project: Bala Skelton MD MCHC (RBC) [Mass/Vol] 34.0 g/dL Normal 28.4-34.8 [facility] Comment on above: Performed By: #### A NAX, IFX, PHEP, FKLLC, PE #### [address] [address] Vp Project: Bala Skelton MD MCHC (RBC) [Mass/Vol] 33.0 g/dL Normal 28.4-34.8 [facility] Comment on above: Performed By: #### A NAX, IFX, PHEP, FKLLC, PE #### [address] [address] Vp Project: Bala Skelton MD MCV (RBC) [Entitic vol] 86.5 fL Normal 82.6-102.9 [facility] Comment on above: Performed By: #### A NAX, IFX, PHEP, FKLLC, PE #### [address] [address] Vp Project: Bala Skelton MD MCV (RBC) [Entitic vol] 86.6 fL Normal 82.6-102.9 [facility] Comment on above: Performed By: #### A NAX, IFX, PHEP, FKLLC, PE #### [address] [address] Vp Project: Bala Skelton MD MCV (RBC) [Entitic vol] 86.7 fL Normal 82.6-102.9 [facility] Comment on above: Performed By: #### A NAX, IFX, PHEP, FKLLC, PE #### [place] [address] Vp Project: Bala Skelton MD Monocytes (Bld) [#/Vol] 0.00 10*3/uL Low 0.1-0.8 [facility] Comment on above: Performed By: #### A NAX, IFX, PHEP, FKLLC, PE #### [address] [address] Vp Project: Bala Skelton MD Monocytes (Bld) [#/Vol] 0.41 10*3/uL Normal 0.1-0.8 [facility] Comment on above: Performed By: #### A NAX, IFX, PHEP, FKLLC, PE #### [place] [address] Vp Project: Bala Skelton MD Monocytes (Bld) [#/Vol] 0.33 10*3/uL Normal 0.1-0.8 [facility] Comment on above: Performed By: #### A NAX, IFX, PHEP, FKLLC, PE #### [address] [address] Vp Project: Bala Skelton MD Monocytes/100 WBC (Bld) 0 % Low [address] [place] [address] Comment on above: Performed By: #### A NAX, IFX, PHEP, FKLLC, PE #### [address] [address] Vp Project: Bala Skelton MD Monocytes/100 WBC (Bld) 4 % Normal [address] [place] [address] Comment on above: Performed By: #### A NAX, IFX, PHEP, FKLLC, PE #### [address] [address] Vp Project: Bala Skelton MD Monocytes/100 WBC (Bld) 5 % Normal [address] [place] [address] Comment on above: Performed By: #### A NAX, IFX, PHEP, FKLLC, PE #### [address] [address] Vp Project: Bala Skelton MD Morphology Bran (Bld) [Interp] Normal Normal [facility] Comment on above: Performed By: #### A NAX, IFX, PHEP, FKLLC, PE #### [address] [address] Vp Project: Bala Skelton MD Morphology Bran (Bld) [Interp] Normal Normal [facility] Comment on above: Performed By: #### A NAX, IFX, PHEP, FKLLC, PE #### [address] [address] Vp Project: Bala Skelton MD Morphology Bran (Bld) [Interp] Normal Normal [facility] Comment on above: Performed By: #### A NAX, IFX, PHEP, FKLLC, PE #### [facility] [address] [place] [address] Vp Project: Bala Skelton MD Neutrophil (Seg) 94 % High [address] [place] [address] Comment on above: Performed By: #### A NAX, IFX, PHEP, FKLLC, PE #### [facility] [address] [place] [address] Vp Project: Bala Skelton MD Neutrophil (Seg) 92 % High [address] [place] [address] Comment on above: Performed By: #### A NAX, IFX, PHEP, FKLLC, PE #### [address] [address] Vp Project: Bala Skelton MD Neutrophil (Seg) 87 % High [address] [place] [address] Comment on above: Performed By: #### A NAX, IFX, PHEP, FKLLC, PE #### [address] [address] Vp Project: Bala Skelton MD NRBC Automated 0.0 per 100 WBC Normal 0.0 [facility] Comment on above: Performed By: #### A NAX, IFX, PHEP, FKLLC, PE #### [address] [address] Vp Project: Bala Skelton MD NRBC Automated 0.0 per 100 WBC Normal 0.0 [facility] Comment on above: Performed By: #### A NAX, IFX, PHEP, FKLLC, PE #### [address] [address] Vp Project: Bala Skelton MD NRBC Automated 0.0 per 100 WBC Normal 0.0 [facility] Comment on above: Performed By: #### A NAX, IFX, PHEP, FKLLC, PE #### [address] [address] Vp Project: Bala Skelton MD Platelet Count See Reflexed IPF Result Normal 138-453 [facility] Comment on above: Performed By: #### A NAX, IFX, PHEP, FKLLC, PE #### [address] [address] Vp Project: Bala Skelton MD Platelet mean volume (Bld) [Entitic vol] 10.2 fL Normal 8.1-13.5 [facility] Comment on above: Performed By: #### A NAX, IFX, PHEP, FKLLC, PE #### [address] [address] Vp Project: Bala Skelton MD Platelet mean volume (Bld) [Entitic vol] 10.4 fL Normal 8.1-13.5 [facility] Comment on above: Performed By: #### A NAX, IFX, PHEP, FKLLC, PE #### [address] [address] Vp Project: Bala Skelton MD Platelets (Bld) [#/Vol] 280 10*3/uL Normal 138-[address] [place] [address] Comment on above: Performed By: #### A NAX, IFX, PHEP, FKLLC, PE #### [address] [address] Vp Project: Bala Skelton MD Platelets (Bld) [#/Vol] 252 10*3/uL Normal 138-453 [facility] Comment on above: Performed By: #### A NAX, IFX, PHEP, FKLLC, PE #### [address] [address] Vp Project: Bala Skelton MD RBC (Bld) [#/Vol] 3.62 10*6/uL Low 3.95-5.11 [facility] Comment on above: Performed By: #### A NAX, IFX, PHEP, FKLLC, PE #### [facility] [address] [place] [phone] Vp Project: Bala Skelton MD RBC (Bld) [#/Vol] 3.74 10*6/uL Low 3.95-5.11 [facility] Comment on above: Performed By: #### A NAX, IFX, PHEP, FKLLC, PE #### [address] [address] Vp Project: Bala Skelton MD RBC (Bld) [#/Vol] 3.84 10*6/uL Low 3.95-5.11 [facility] Comment on above: Performed By: #### A NAX, IFX, PHEP, FKLLC, PE #### [address] [address] Vp Project: Bala Skelton MD WBC (Bld) [#/Vol] 12.3 10*3/uL High 3.5-11.3 [facility] Comment on above: Performed By: #### A NAX, IFX, PHEP, FKLLC, PE #### [address] [address] Vp Project: Bala Skelton MD WBC (Bld) [#/Vol] 10.2 10*3/uL Normal 3.5-11.3 [facility] Comment on above: Performed By: #### A NAX, IFX, PHEP, FKLLC, PE #### [facility] [employer] [address] [place] [address] Vp Project: Bala Skelton MD WBC (Bld) [#/Vol] 6.6 10*3/uL Normal 3.5-11.3 [facility] Comment on above: Performed By: #### A NAX, IFX, PHEP, FKLLC, PE #### [facility] [address] [place] [address] Vp Project: Bala Skelton MD CREATININE, RANDOM URINEon 0 07-20-2022 Creatinine, Ur 67.5 mg/dL 28 - 217 mg/dL [facility] CULTURE URINEon 07-20-2022 CULTURE URINE Isolate 1 [...] F Trimethoprim/Sulfamethox azole <=20 S F Normal [facility] Comment on above: Performed By: #### U MICRO, ERUR #### [facility] [address] [place] [address] Dr. Delmer Rea Chloride, Random Urineon Chloride, Ur 50 mmol/L [facility] Comment on above: No normal range esta blished. Chloride,Random Uron 022 Chloride [Moles/Vol] 50 mmol/L Normal [facility] Comment on above: Result Comment: No n ormal range established. Performed By: #### A NAX, IFX, PHEP, FKLLC, PE #### [facility] [address] [place] [address] Vp Project: Bala Skelton MD Creatinine, Random Urineon 0 07-20-2022 Creatinine, Ur 76.5 mg/dL 28 - 217 mg/dL [facility] Creatinine,Random Uron 07-20 Creatinine [Mass/Vol] 76.5 mg/dL Normal 28.0-217.0 [facility] Comment on above: Performed By: #### A NAX, IFX, PHEP, FKLLC, PE #### [employer] [address] [place], [place] [phone] Vp Project: Bala Skelton MD Creatinine [Mass/Vol] 67.5 mg/dL Normal 28.0-217.0 [facility] Comment on above: Performed By: #### B C #### [employer] [address] [place], [place] [phone] Vp Project: Bala Skelton MD EKG 12 LeadOrdered By: Cheryl Domínguez on 07-20-2022 Atrial Rate 105 BPM [employer] Work Phone: P [place] 8 degrees [employer] Phone: P-R Interval 136 ms [employer] Phone: Q-T Interval 344 ms [employer] Phone: QRS Duration 84 ms [employer] Phone: QTc Calculation (Bazett) 454 ms [employer] Phone: R [place] -15 degrees [employer] Phone: T [place] 13 degrees [employer] Phone: Ventricular Rate 105 BPM [facility] [employer] [employer] Work Phone: BON [employer] Phone: EKG 12 Leadon 07-20-2022 Sinus tachycardia Septal infarct (cited on or before 20-JUL-2022) Abnormal ECG When compared with ECG of 20-JUL-2022 05:40, No significant change was found [facility] Julien Hamilton MD - 07/20/2022 Sinus tachycardia Septal infarct (cited on or before 20-JUL-2022) Abnormal ECG When compared with ECG of 20-JUL-2022 05:40, No significant change was found [facility] [employer] Phone: Free [place] + Lambdaon 2021 Free [place] Lt Chains 2.91 mg/dL High 0.37-1.94 [facility] Comment on above: Performed By: #### A NAX, IFX, PHEP, FKLLC, PE #### [employer] [address] [place], [place] [phone] Vp Project: Bala Skelton MD Free [place]/Lambda Rat 1.67 High 0.26-1.65 [facility] Comment on above: Performed By: #### A NAX, IFX, PHEP, FKLLC, PE #### [employer] [address] [place], [place] [phone] Vp Project: Bala Skelton MD Free Lambda Lt Chains 1.74 mg/dL Normal 0.57-2.63 [facility] Comment on above: Performed By: #### A NAX, IFX, PHEP, FKLLC, PE #### [employer] [address] [place], [place] [phone] Vp Project: Bala Skelton MD Immature Platelet Fractionon 07-20-2022 Platelet, Fluorescence Platelet clumps present, count appears adequate. [facility] [employer] [place]/Lambda Quantitative Fr ee Light Chains, Serumon 07-20-2022 Free [place]/Lambda Ratio 1.67 High 0.26 - 1.65 [facility] [employer] [place] Free Light Chains QNT 2.91 mg/dL High 0.37 - 1.94 mg/dL [facility] [employer] Lambda Free Light Chains QNT 1.74 mg/dL 0.57 - 2.63 mg/dL [facility] [employer] Lactate, Sepsison 07-20-2022 Lactic Acid, Sepsis, Whole Blood 3.8 mmol/L High 0.5 - 1.9 mmol/L [facility] [employer] Lactic Acid,Sep Wbld 3.8 mmol/L High 0.5-1.9 [facility] Comment on above: Performed By: #### B C #### [employer] [address] [place] [address] Vp Project: Bala Skelton MD Lactic Acidon 07-20-2022 Lactic Acid, Whole Blood 2.0 mmol/L 0.7 - 2.1 mmol/L [facility] Lactic Acid,Whole Bl 2.0 mmol/L Normal 0.7-2.1 [facility] Comment on above: Performed By: #### B C #### [employer] [address] [place] [address] Vp Project: Bala Skelton MD [facility] [employer] No Panel Informationon 07-20 Interpretation and review of laboratory results Abnormal [facility] Interpretation and review of laboratory results Abnormal [facility] Interpretation and review of laboratory results Abnormal [facility] Interpretation and review of laboratory results Abnormal [facility] Interpretation and review of laboratory results Abnormal [facility] [employer] Interpretation and review of laboratory results Abnormal [facility] PLT, Immature Fract.on 07-20 Platelet, Fluoresc. Platelet clumps pres ent, count appears adequate. Normal 138-453 [facility] Comment on above: Performed By: #### A NAX, IFX, PHEP, FKLLC, PE #### [employer] [facility] [place] [address] Vp Project: Bala Skelton MD POC Glucose Fingerstickon Glucose [Mass/Vol] 415 mg/dL Critically high 65 - 1 05 mg/dL [facility] [employer] Glucose [Mass/Vol] 375 mg/dL High 65 - 105 mg/dL [facility] Glucose [Mass/Vol] 405 mg/dL Critically high 65 - 1 05 mg/dL [facility] [employer] Comment on above: Critical Noted Glucose [Mass/Vol] 393 mg/dL High 65 - 105 mg/dL [facility] [employer] Glucose [Mass/Vol] 231 mg/dL High 65 - 105 mg/dL [facility] Glucose [Mass/Vol] 145 mg/dL High 65 - 105 mg/dL [facility] Interpretation and review of laboratory results Abnormal [facility] Interpretation and review of laboratory results Abnormal [facility] Interpretation and review of laboratory results Abnormal [facility] Procalcitoninon 07-20-2022 Procalcitonin 48.54 ng/mL High NINF - 0.09 ng/mL [facility] Comment on above: Suspected Sepsis: <0.50 ng/mL [...] entered into the Change in Procalcitonin Calculator (www.eggguf-nzu-efxfsiwnjn.com) to determine the patient's Mortality Risk Prognosis In healthy neonates, plasma Procalcitonin (PCT) concentrations increase gradually after , reaching peak values at about 24 hours of age then decrease to normal values below 0.5 ng/mL by 48-72 hours of age. Procalcitonin 48.54 ng/mL High <0.09 [facility] Comment on above: Result Comment: Suspected Sepsis: [...] entered into the Change in Procalcitonin Calculator (www.wwimke-thd-ciodxcijls.com) to determine the patient's Mortality Risk Prognosis In healthy neonates, plasma Procalcitonin (PCT) concentrations increase gradually after , reaching peak values at about 24 hours of age then decrease to normal values below 0.5 ng/mL by 48-72 hours of age. Performed By: #### A NAX, IFX, PHEP, FKLLC, PE #### [employer] [address] [place] [phone] Vp Project: Bala Skelton MD Prot. Electroph, Blon 2021 Protein [Mass/Vol] 6.3 g/dL Low 6.4-8.3 [facility] Comment on above: Performed By: #### A NAX, IFX, PHEP, FKLLC, PE #### [employer] [address] [place] [phone] Vp Project: Bala Skelton MD Prot. Electrophoresis, Uron 07-20-2022 Type of Specimen .URINE Normal [facility] Comment on above: Performed By: #### A NAX, IFX, PHEP, FKLLC, PE #### [employer] [address] [place] [phone] Vp Project: Bala Skelton MD Protein / creatinine ratio, urineon 07-20-2022 Creatinine, Ur 75.7 mg/dL 28 - 217 mg/dL [employer] Protein (U) [Mass/Vol] 145 mg/dL [employer] Comment on above: No normal range esta blished. Urine Total Protein Creatinine Ratio 1.92 High 0 - 0.2 [employer] Protein, urine, randomon Protein (U) [Mass/Vol] 144 mg/dL [employer] Comment on above: No normal range esta blished. Protein,Tot,Kamrar Uron 2021 Creatinine [Mass/Vol] 75.7 mg/dL Normal 28.0-217.0 [facility] Comment on above: Performed By: #### A NAX, IFX, PHEP, FKLLC, PE #### [facility] [address] [place] [phone] Vp Project: Bala Skelton MD Tot Prot. Conc. 145 mg/dL Normal [facility] Comment on above: Result Comment: No n ormal range established. Performed By: #### A NAX, IFX, PHEP, FKLLC, PE #### [facility] [employer] [address] [place] [phone] Vp Project: Bala Skelton MD Tot Prot. Conc. 144 mg/dL Normal [facility] Comment on above: Result Comment: No n ormal range established. Performed By: #### A NAX, IFX, PHEP, FKLLC, PE #### [facility] [employer] [address] [place] [address] Vp Project: Bala Skelton MD TP/Cre Ratio 1.92 High 0.00-0.20 [facility] Comment on above: Performed By: #### A NAX, IFX, PHEP, FKLLC, PE #### [facility] [employer] [address] [place] [phone] Vp Project: Bala Skelton MD SODIUM, URINE, RANDOMon 07-07 Sodium (U) [Moles/Vol] mmol/L mmol/L [facility] Comment on above: No normal range esta blished. Sodium, Random Uron 07-20-20 22 Na Conc. Urine <20 Normal [facility] Comment on above: Result Comment: No n ormal range established. Performed By: #### B C #### [facility] [employer] [address] [place] [phone] Vp Project: Bala Skelton MD Sodium (U) [Moles/Vol] 26 mmol/L Normal [facility] Comment on above: Result Comment: No n ormal range established. Performed By: #### A NAX, IFX, PHEP, FKLLC, PE #### [employer] [address] [place] [address] Vp Project: Bala Skelton MD Sodium, urine, randomon 07-07 Sodium (U) [Moles/Vol] 26 mmol/L [facility] [employer] Comment on above: No normal range esta blished. US RETROPERITONEAL LIMITEDon 07-20-2022 Radiology Study observation (narrative) [facility] [employer] Work Phone: US RETROPERITONEAL LIMITED EXAMINATION: ULTRASOUND OF THE [...] Femi Enamorado MD 07/20/22 Final result Normal [facility] 1. 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 Correlate with any recent instrumentation. 2. Equivocal dilatation of the upper pole left kidney. No overt hydronephrosis. 3. 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 RECOMMENDATIONS: Unavailable [facility] CONSOLIDATED EXAMINATION: ULTRASOUND OF THE KIDNEYS 07/20/2022 [...] nephrostomy at the lower pole left kidney. [facility] JUANY Enamorado, Femi Estrada MD - 07/20/2022 EXAMINATION: [...] involving the left renal hilum. RECOMMENDATIONS: Unavailable [employer] Phone: US RETROPERITONEAL LIMITEDOr dered By: Femi Enamorado on 07-20-2022 [employer] Phone: Urinalysis w/ Microon 2021 Bilirubin, SemiQt,Ur Negative Normal NEG [facility] Comment on above: Performed By: #### A NAX, IFX, PHEP, FKLLC, PE #### [address] [address] Vp Project: Bala Skelton MD Blood, Urine LARGE Abnormal NEG [facility] Comment on above: Performed By: #### A NAX, IFX, PHEP, FKLLC, PE #### [address] [address] Vp Project: Bala Skelton MD Clarity (U) Cloudy Abnormal CLEAR [facility] Comment on above: Performed By: #### A NAX, IFX, PHEP, FKLLC, PE #### [address] [address] Vp Project: Bala Skelton MD Color (U) Mchenry Abnormal YEL [facility] Comment on above: Result Comment: INTE RPRET WITH CAUTION DUE TO INTENSE COLOR OF URINE. Performed By: #### A NAX, IFX, PHEP, FKLLC, PE #### [address] [address] Vp Project: Bala Skelton MD Epithelial cells LM Ql (Urine sed) 0 TO 2 Normal 0-5 [facility] Comment on above: Performed By: #### A NAX, IFX, PHEP, FKLLC, PE #### [address] [address] Vp Project: Bala Skelton MD Glucose Ql (U) 3+ Abnormal NEG [facility] Comment on above: Performed By: #### A NAX, IFX, PHEP, FKLLC, PE #### [address] [address] Vp Project: Bala Skelton MD Ketones Ql (U) Negative Normal NEG [facility] Comment on above: Performed By: #### A NAX, IFX, PHEP, FKLLC, PE #### [address] [address] Vp Project: Bala Skeltno MD Leukocyte esterase Test strip Ql (U) MODERATE Abnormal NEG [facility] Comment on above: Performed By: #### A NAX, IFX, PHEP, FKLLC, PE #### [address] [address] Vp Project: Bala Skelton MD Nitrite,Ur Negative Normal NEG [facility] Comment on above: Performed By: #### A NAX, IFX, PHEP, FKLLC, PE #### [address] [address] Vp Project: Bala Skelton MD PH,Ur 5.0 Normal 5.0-8.0 [facility] Comment on above: Performed By: #### A NAX, IFX, PHEP, FKLLC, PE #### [address] [address] Vp Project: Bala Skelton MD Protein Ql (U) 2+ Abnormal NEG [facility] Comment on above: Performed By: #### A NAX, IFX, PHEP, FKLLC, PE #### [address] [address] Vp Project: Bala Skelton MD Spec. [place],Ur 1.022 Normal 1.005-1.030 [facility] Comment on above: Performed By: #### A NAX, IFX, PHEP, FKLLC, PE #### [address] [address] Vp Project: Bala Skelton MD Urine RBC's TOO NUMEROUS TO COUNT Normal 0-2 [facility] Comment on above: Performed By: #### A NAX, IFX, PHEP, FKLLC, PE #### [facility] [address] [place] [address] Vp Project: Bala Skelton MD Urine WBC's 10 TO 20 Normal 0-5 [facility] Comment on above: Performed By: #### A NAX, IFX, PHEP, FKLLC, PE #### [facility] [address] [place] [address] Vp Project: Bala Skelton MD Urobilinogen,Ur Normal Normal NORM [facility] Comment on above: Performed By: #### A NAX, IFX, PHEP, FKLLC, PE #### [employer] [address] [place] [address] Vp Project: Bala Skelton MD Urinalysis with Microscopico n 07-20-2022 Bilirubin Urine Negative NEGATIVE [facility] Color, UA Mchenry Abnormal Yellow [facility] Comment on above: INTERPRET WITH CAUTI ON DUE TO INTENSE COLOR OF URINE. Epithelial Cells UA 0 TO 2 [facility] Glucose, Ur 3+ Abnormal NEGATIVE [facility] Ketones Ql (U) Negative NEGATIVE [facility] Leukocyte esterase Test strip Ql (U) MODERATE Abnormal NEGATIVE [facility] Nitrite, Urine Negative NEGATIVE [facility] pH, UA 5.0 5 - 8 [facility] Protein, UA 2+ Abnormal NEGATIVE [facility] RBC, UA TOO NUMEROUS TO COUNT [facility] Specific [place], UA 1.022 1.005 - 1.03 [facility] Turbidity UA Cloudy Abnormal Clear [facility] Urine Hgb LARGE Abnormal NEGATIVE [facility] Urobilinogen, Urine Normal Normal [facility] WBC, UA 10 TO 20 [facility] Venous Blood Gaseson 022 Body Temp. 37.0 Normal [facility] Comment on above: Performed By: #### V BG #### [facility] [address] [place] [address] Vp Project: Bala Skelton MD Carboxy Hgb 1.4 % Normal 0-5 [facility] Comment on above: Result Comment: Reference Range: Non-Smokers 0-2% Average Smoker 2-4% Heavy Smoker <10% Performed By: #### V BG #### [address] [address] Vp Project: Bala Skelton MD FIO2 INFORMATION NOT PROVIDED Normal [facility] Comment on above: Performed By: #### V BG #### [address] [address] Vp Project: Bala Skelton MD HCO3 (Bld) [Moles/Vol] 19.6 mmol/L Low 24-30 [facility] Comment on above: Performed By: #### V BG #### [address] [address] Vp Project: Bala Skelton MD Negative Base Excess 5.6 mmol/L High 0.0-2.0 [facility] Comment on above: Performed By: #### V BG #### [address] [address] Vp Project: Bala Skelton MD Oxygen (Bld) [Partial pressure] 36.9 mm[Hg] Normal 30-50 [facility] Comment on above: Performed By: #### V BG #### [address] [address] Vp Project: Bala Skelton MD Oxygen saturation in Blood 74.4 % Normal 60.0-85.0 [facility] Comment on above: Performed By: #### V BG #### [address] [address] Vp Project: Bala Skelton MD pCO2 39.5 Normal 39-55 [facility] Comment on above: Performed By: #### V BG #### [facility] [address] [place], [place] [address], [place] [address] Vp Project: Bala Skelton MD pH (Bld) 7.316 [pH] Low 7.320-7.420 [facility] Comment on above: Performed By: #### V BG #### [address] [address] Vp Project: Bala Skelton MD XR CHEST PORTABLEon 07-20-20 Radiology Study observation (narrative) [facility] [employer] Work Phone: XR CHEST PORTABLE EXAMINATION: ONE X-RAY VIEW [...] Ricarda Orozco DO 07/20/22 Final result Normal [facility] 1. Mild vascular congestion. 2. Minimal patchy opacities at the lung bases, possibly related to atelectasis. No dense airspace consolidation. [facility] CONSOLIDATED EXAMINATION: ONE X-RAY VIEW OF THE CHEST 07/20/2022 6:31 am COMPARISON: None. HISTORY: ORDERING SYSTEM PROVIDED HISTORY: consolidation TECHNOLOGIST PROVIDED HISTORY: Consolidation FINDINGS: Heart size is mildly prominent, and there is mild vascular congestion. There are minimal patchy opacities at the lung bases, which may be related to atelectasis. No dense airspace consolidation. No pneumothorax or pleural effusion. [facility] CONSOLIDATED Ricarda Orozco DO - 07/20/2022 [...] related to atelectasis. No dense airspace consolidation. [facility] [employer] Phone: XR CHEST PORTABLEOrdered By: Ricarda Orozco on 07-20-2022 [facility] [employer] Phone: Basic Metab w/rfx MGon 07-19 (cont.) Normal [facility] Comment on above: Result Comment: Aver age GFR for 50-59 years old: 93 mL/min/1.73sq m Chronic Kidney Disease: <60 mL/min/1.73sq m Kidney failure: <15 mL/min/1.73sq m eGFR calculated using average adult body mass. Additional eGFR calculator available at: http://www.[employer]/multiple_crcl_2012.htm Performed By: #### B MPX, CDP #### [facility] [address] [place] [phone] Vp Project: Bala Skelton MD Anion gap [Moles/Vol] 14 mmol/L Normal 9-17 [facility] Comment on above: Performed By: #### B MPX, CDP #### [facility] [address] [place] [address] Vp Project: Bala Skelton MD Calcium [Mass/Vol] 8.3 mg/dL Low 8.6-10.4 [facility] Comment on above: Performed By: #### B MPX, CDP #### [employer] [address] [place] [address] Vp Project: Bala Skelton MD Chloride [Moles/Vol] 98 mmol/L Normal 98-107 [facility] Comment on above: Performed By: #### B MPX, CDP #### [employer] [address] [place] [phone] Vp Project: Bala Skelton MD CO2 [Moles/Vol] 19 mmol/L Low 20-31 [facility] Comment on above: Performed By: #### B MPX, CDP #### [facility] [address] [place] [phone] Vp Project: Bala Skelton MD Creatinine [Mass/Vol] 1.71 mg/dL High 0.50-0.90 [facility] Comment on above: Performed By: #### B MPX, CDP #### [facility] [address] [place] [address] [phone] Vp Project: Bala Skelton MD GFR, Amer 38 mL/min Low >60 [facility] Comment on above: Performed By: #### B MPX, CDP #### [facility] [address] [place] [address] [phone] Vp Project: Bala Skelton MD GFR,non Amer 32 mL/min Low >60 [facility] Comment on above: Performed By: #### B MPX, CDP #### [facility] [address] [place] [address] [phone] Vp Project: Bala Skelton MD Glucose [Mass/Vol] 263 mg/dL High 70-99 [facility] Comment on above: Performed By: #### B MPX, CDP #### [facility] [address] [place] [address] [phone] Vp Project: Bala Seklton MD Potassium [Moles/Vol] 4.0 mmol/L Normal 3.7-5.3 [facility] Comment on above: Performed By: #### B MPX, CDP #### [facility] [address] [place] [address] [phone] Vp Project: Bala Skelton MD Sodium [Moles/Vol] 131 mmol/L Low 135-144 [facility] Comment on above: Performed By: #### B MPX, CDP #### [facility] [address], [place] [phone] Vp Project: Bala Skelton MD Urea nitrogen [Mass/Vol] 38 mg/dL High 6-20 [facility] Comment on above: Performed By: #### B MPX, CDP #### [facility] [address], [place] [phone] Vp Project: Bala Skelton MD Basic Metabolic Panel w/ Ref romulo to MGon 07-19-2022 Anion gap [Moles/Vol] 14 mmol/L 9 - 17 mmol/L [facility] Calcium [Mass/Vol] 8.3 mg/dL Low 8.6 - 10. 4 mg/dL [facility] Chloride [Moles/Vol] 98 mmol/L 98 - 107 mmol/L [facility] CO2 [Moles/Vol] 19 mmol/L Low 20 - 31 mmol/L [facility] Creatinine [Mass/Vol] 1.71 mg/dL High 0.5 - 0.9 mg/dL [facility] GFR 38 mL/min Low 60 - PINF mL/min [facility] GFR Non- 32 mL/min Low 60 - PINF mL/min [facility] GFR/1.73 sq M.predicted MDRD (S/P/Bld) [Vol rate/Area] [facility] Comment on above: Average GFR for 50-5 9 years old: 93 mL/min/1.73sq m Chronic Kidney Disease: <60 mL/min/1.73sq m Kidney failure: <15 mL/min/1.73sq m eGFR calculated using average adult body mass. Additional eGFR calculator available at: http://www.[employer].Brandcast/multiple_crcl_2012.htm Glucose [Mass/Vol] 263 mg/dL High 70 - 99 mg/dL [facility] Potassium [Moles/Vol] 4.0 mmol/L 3.7 - 5.3 mmol/L [facility] Sodium [Moles/Vol] 131 mmol/L Low 135 - 144 mmol/L [facility] Urea nitrogen (BldV) [Mass/Vol] 38 mg/dL High 6 - 20 mg/dL [facility] CBC with Auto Differentialon 07-19-2022 Absolute Eos # 0.16 [facility] Absolute Immature Granulocyte 0.05 [facility] Absolute Lymph # 2.34 [facility] Absolute Preble # 0.64 [facility] Basophils (Bld) [#/Vol] 0.03 10*3/uL [facility] Basophils/100 WBC (Bld) 0 % 0 - 2 % [facility] Eosinophils/100 WBC (Bld) 2 % 1 - 4 % [facility] Hematocrit (Bld) [Volume fraction] 30.2 % Low 36.3 - 47.1 % [facility] Hemoglobin (Bld) [Mass/Vol] 10.4 g/dL Low 11.9 - 15.1 g/dL [facility] Immature granulocytes/100 WBC (Bld) 1 % High 0 [facility] Lymphocytes/100 WBC (Bld) 33 % 24 - 43 % [facility] MCH (RBC) [Entitic mass] 29.7 pg 25.2 - 33.5 pg [facility] MCHC (RBC) [Mass/Vol] 34.4 g/dL 28.4 - 34.8 g/dL [facility] MCV (RBC) [Entitic vol] 86.3 fL 82.6 - 102.9 fL [facility] Monocytes/100 WBC (Bld) 9 % 3 - 12 % [facility] NRBC Automated 0.0 0.0 per 100 WBC [facility] Platelet distribution width (Bld) [Ratio] 13.6 % 11.8 - 14.4 % [facility] Platelet mean volume (Bld) [Entitic vol] 11.2 fL 8.1 - 13.5 fL [facility] Platelets (Bld) [#/Vol] 410 10*3/uL [facility] RBC (Bld) [#/Vol] 3.50 10*6/uL Low 3.95 - 5.1 1 m/uL [facility] Segmented neutrophils/100 WBC (Bld) 54 % 36 - 65 % [facility] Segs Absolute 3.83 [facility] WBC (Bld) [#/Vol] 7.1 10*3/uL [facility] CBC with Diffon 07-19-2022 Abs. Basophil 0.03 k/uL Normal 0.00-0.20 [facility] Comment on above: Performed By: #### B MPX, CDP #### [facility] [address] [place] [address] [phone] Vp Project: Bala Skelton MD Abs.Imm.Granulocyte 0.05 k/uL Normal 0.00-0.30 [facility] Comment on above: Performed By: #### B MPX, CDP #### [facility] [employer] [address] [place] [address] [phone] Vp Project: Bala Skelton MD Abs.Neutrophil (Seg) 3.83 k/uL Normal 1.50-8.10 [facility] Comment on above: Performed By: #### B MPX, CDP #### [facility] [employer] [address] [place] [address] [phone] Vp Project: Bala Skelton MD Basophils/100 WBC (Bld) 0 % Normal 0-2 [facility] Comment on above: Performed By: #### B MPX, CDP #### [facility] [employer] [address] [place] [address] [phone] Vp Project: Bala Skelton MD Eosinophils (Bld) [#/Vol] 0.16 10*3/uL Normal 0.00-0.44 [facility] Comment on above: Performed By: #### B MPX, CDP #### [facility] [address] [place] [address] [phone] Vp Project: Bala Skelton MD Eosinophils/100 WBC (Bld) 2 % Normal 1-4 [facility] Comment on above: Performed By: #### B MPX, CDP #### [facility] [employer] [address] [place] [address] [phone] Vp Project: Bala Skelton MD Erythrocyte distribution width (RBC) [Ratio] 13.6 % Normal 11.8-14.4 [facility] Comment on above: Performed By: #### B MPX, CDP #### [facility] [employer] [address] [place] [address] [phone] Vp Project: Bala Skelton MD Hematocrit (Bld) [Volume fraction] 30.2 % Low 36.3-47.1 [facility] Comment on above: Performed By: #### B MPX, CDP #### [address] [address] Vp Project: Bala Skelton MD Hemoglobin (Bld) [Mass/Vol] 10.4 g/dL Low 11.9-15.1 [facility] Comment on above: Performed By: #### B MPX, CDP #### [address] [address] Vp Project: Bala Skelton MD Immature granulocytes/100 WBC (Bld) 1 % High 0 [facility] Comment on above: Performed By: #### B MPX, CDP #### [facility] [employer] [address] [place] [address] [phone] Vp Project: Bala Skelton MD Lymphocytes (Bld) [#/Vol] 2.34 10*3/uL Normal 1.10-3.70 [facility] Comment on above: Performed By: #### B MPX, CDP #### [facility] [employer] [address] [place] [address] 11238 Vp Project: Bala Skelton MD Lymphocytes/100 WBC (Bld) 33 % Normal 24-43 [facility] Comment on above: Performed By: #### B MPX, CDP #### [facility] [employer] [address] [place] [address] 13276 Vp Project: Bala Skelton MD MCH (RBC) [Entitic mass] 29.7 pg Normal 25.2-33.5 [facility] Comment on above: Performed By: #### B MPX, CDP #### [address] [address] Vp Project: Bala Skelton MD MCHC (RBC) [Mass/Vol] 34.4 g/dL Normal 28.4-34.8 [facility] Comment on above: Performed By: #### B MPX, CDP #### [address] [address] Vp Project: Bala Skelton MD MCV (RBC) [Entitic vol] 86.3 fL Normal 82.6-102.9 [facility] Comment on above: Performed By: #### B MPX, CDP #### [address] [address] Vp Project: Bala Skelton MD Monocytes (Bld) [#/Vol] 0.64 10*3/uL Normal 0.10-1.20 [facility] Comment on above: Performed By: #### B MPX, CDP #### [address] [address] Vp Project: Bala Skelton MD Monocytes/100 WBC (Bld) 9 % Normal 3-12 [facility] Comment on above: Performed By: #### B MPX, CDP #### [address] [address] Vp Project: Bala Skelton MD Neutrophil (Seg) 54 % Normal 36-65 [facility] Comment on above: Performed By: #### B MPX, CDP #### [address] [address] Vp Project: Bala Skelton MD NRBC Automated 0.0 per 100 WBC Normal 0.0 [facility] Comment on above: Performed By: #### B MPX, CDP #### [address] [address] Vp Project: Bala Skelton MD Platelet mean volume (Bld) [Entitic vol] 11.2 fL Normal 8.1-13.5 [facility] Comment on above: Performed By: #### B MPX, CDP #### [address] [address] Vp Project: Bala Skelton MD Platelets (Bld) [#/Vol] 410 10*3/uL Normal 138-453 [facility] Comment on above: Performed By: #### B MPX, CDP #### [address] [address] Vp Project: Bala Skelton MD RBC (Bld) [#/Vol] 3.50 10*6/uL Low 3.95-5.11 [facility] Comment on above: Performed By: #### B MPX, CDP #### [address] [address] Vp Project: Bala Skelton MD WBC (Bld) [#/Vol] 7.1 10*3/uL Normal 3.5-11.3 [facility] Comment on above: Performed By: #### B MPX, CDP #### [address] [address] Vp Project: Bala Skelton MD Cult,Urineon 07-19-2022 Cult,Urine Specimen Description .CLEAN CATCH URINE Culture NO SIGNIFICANT GROWTH Report Status FINAL 07/19/2022 Normal [facility] Comment on above: Performed By: #### A NAX, IFX, PHEP, FKLLC, PE #### [address] [address] Vp Project: Bala Skelton MD Culture, Urineon 07-19-2022 Bacteria identified Cx Nom (U) NO SIGNIFICANT GROWTH [facility] Specimen Description .CLEAN CATCH URINE [facility] IR GUIDED NEPHROSTOMY CATH P LACEMENT LEFTon 07-19-2022 Radiology Study observation (narrative) [facility] Work Phone: Successful percutane ous left nephroureteral stent placement via lower pole, past a large staghorn calculus, with distal pigtail tip position in the urinary bladder, as above. Findings were discussed with KASH CLAY at 4:09 pm on 07/19/2022. [facility] RIS Noman Montano MD - 07/19/2022 PROCEDURE: PERCUTANEOUS ANTEGRADE PYELOGRAM LEFT PERCUTANEOUS NEPHROURETERAL STENT PLACEMENT ULTRASOUND AND FLUOROSCOPY GUIDANCE MODERATE CONSCIOUS SEDATION 07/19/2022 HISTORY: ORDERING SYSTEM PROVIDED HISTORY[facility] TECHNOLOGIST PROVIDED HISTORY: staboydorn Is the patient ?->No SEDATION: Versed 0.5 [...] the procedure including risks, benefits, and alternatives. [place] protocol was followed. The patient's flank was [...] into the urinary bladder using a 4 [place]ian Kumpe the catheter; the Glidewire was exchanged [...] puncture of the lower pole calyx, 4 [place]ian Kumpe the catheter manipulation and glidewire extension into the urinary bladder. Subsequent images show the nephroureteral stent in satisfactory position. IMPRESSION: Successful percutaneous left nephroureteral stent placement via lower pole, past a large staghorn calculus, with distal pigtail tip position in the urinary bladder, as above. Findings were discussed with KASH CLAY at 4:09 pm on 07/19/2022. [facility] [address] [employer] Work Phone: IR GUIDED NEPHROSTOMY CATH P LACEMENT LEFTOrdered By: Noman Mullen on 07-19-2022 [facility] [employer] Work Phone: No Panel Informationon 07-19 Interpretation and review of laboratory results Abnormal [facility] POC Glucose Fingerstickon Glucose [Mass/Vol] 283 mg/dL High 65 - 105 mg/dL [facility] Glucose [Mass/Vol] 301 mg/dL High 65 - 105 mg/dL [facility] [employer] Glucose [Mass/Vol] 231 mg/dL High 65 - 105 mg/dL [facility] Glucose [Mass/Vol] 278 mg/dL High 65 - 105 mg/dL [facility] Interpretation and review of laboratory results Abnormal [facility] Interpretation and review of laboratory results Abnormal [facility] Interpretation and review of laboratory results Abnormal [facility] Interpretation and review of laboratory results Abnormal [facility] PTon 07-19-2022 INR Coag (PPP) [Relative time] 0.9 {INR} Normal [facility] Comment on above: Result Comment: Therapeutic Range: Moderate Anticoagulant Intensity: INR = 2.0-3.0 High Anticoagulant Intensity: INR = 2.5-3.5 Performed By: #### A NAX, IFX, PHEP, FKLLC, PE #### [employer] [address] [place] [address] [phone] Vp Project: Bala Skelton MD PT Coag (PPP) [Time] 9.8 s Normal 9.1-12.3 [facility] Comment on above: Performed By: #### A NAX, IFX, PHEP, FKLLC, PE #### [employer] [address] [place] [address] [phone] Vp Project: Bala Skelton MD Protime-INRon 07-19-2022 INR Coag (Bld) [Relative time] 0.9 {INR} [facility] Comment on above: Therapeutic Range: Moderate Anticoagulant Intensity: INR = 2.0-3.0 High Anticoagulant Intensity: INR = 2.5-3.5 PT Coag (PPP) [Time] 9.8 s [facility] Urinalysis w/ Microon 2021 Bilirubin, SemiQt,Ur Negative Normal NEG [facility] Comment on above: Performed By: #### A NAX, IFX, PHEP, FKLLC, PE #### [employer] [address] [place] [address] [phone] Vp Project: Bala Skelton MD Blood, Urine LARGE Abnormal NEG [facility] Comment on above: Performed By: #### A NAX, IFX, PHEP, FKLLC, PE #### [employer] [address] [place] [address] [phone] Vp Project: Bala kSelton MD Casts 2 TO 5 HYALINE Normal 0-8 [facility] Comment on above: Result Comment: Refe rence range defined for non-centrifuged specimen. Performed By: #### A NAX, IFX, PHEP, FKLLC, PE #### [employer] [address] [place] [address] [place] [address] Vp Project: Bala Skelton MD Clarity (U) Turbid Abnormal CLEAR [facility] Comment on above: Performed By: #### A NAX, IFX, PHEP, FKLLC, PE #### [facility] [employer] [address] [place] [address] [phone] Vp Project: Bala Skelton MD Color (U) Yellow Normal YEL [facility] Comment on above: Performed By: #### A NAX, IFX, PHEP, FKLLC, PE #### [address] [address] Vp Project: Bala Skelton MD Epithelial cells LM Ql (Urine sed) 0 TO 2 Normal 0-5 [facility] Comment on above: Performed By: #### A NAX, IFX, PHEP, FKLLC, PE #### [address] [address] Vp Project: Bala Skelton MD Glucose Ql (U) 1+ Abnormal NEG [facility] Comment on above: Performed By: #### A NAX, IFX, PHEP, FKLLC, PE #### [facility] [employer] [address] [place] [address] [phone] Vp Project: Bala Skelton MD Ketones Ql (U) Negative Normal NEG [facility] Comment on above: Performed By: #### A NAX, IFX, PHEP, FKLLC, PE #### [facility] [employer] [address] [place] [phone] Vp Project: Bala Skelton MD Leukocyte esterase Test strip Ql (U) LARGE Abnormal NEG [facility] Comment on above: Performed By: #### A NAX, IFX, PHEP, FKLLC, PE #### [facility] [employer] [address] [place] [phone] Vp Project: Bala Skleton MD Nitrite,Ur Negative Normal NEG [facility] Comment on above: Performed By: #### A NAX, IFX, PHEP, FKLLC, PE #### [address] [address] Vp Project: Bala Skelton MD PH,Ur 5.0 Normal 5.0-8.0 [facility] Comment on above: Performed By: #### A NAX, IFX, PHEP, FKLLC, PE #### [address] [address] Vp Project: Bala Skelton MD Protein Ql (U) 1+ Abnormal NEG [facility] Comment on above: Performed By: #### A NAX, IFX, PHEP, FKLLC, PE #### [address] [address] Vp Project: Bala Skelton MD Spec. [place],Ur 1.017 Normal 1.005-1.030 [facility] Comment on above: Performed By: #### A NAX, IFX, PHEP, FKLLC, PE #### [address] [address] Vp Project: Bala Skelton MD Urine RBC's 10 TO 20 Normal 0-4 [facility] Comment on above: Result Comment: Refe rence range defined for non-centrifuged specimen. Performed By: #### A NAX, IFX, PHEP, FKLLC, PE #### [address] [address] Vp Project: Bala Skelton MD Urine WBC's TOO NUMEROUS TO COUNT Normal 0-5 [facility] Comment on above: Performed By: #### A NAX, IFX, PHEP, FKLLC, PE #### [address] [address] Vp Project: Bala Skelton MD Urobilinogen,Ur Normal Normal NORM [facility] Comment on above: Performed By: #### A NAX, IFX, PHEP, FKLLC, PE #### [employer] [address] [place] [address] Vp Project: Bala Skelton MD Urinalysis with Microscopico n 07-19-2022 Bilirubin Urine Negative NEGATIVE [facility] Casts UA 2 TO 5 HYALINE Refer ence range defined for non-centrifuged specimen. [facility] Color, UA Yellow Yellow [facility] Epithelial Cells UA 0 TO 2 [facility] Glucose, Ur 1+ Abnormal NEGATIVE [facility] Ketones Ql (U) Negative NEGATIVE [facility] Leukocyte esterase Test strip Ql (U) LARGE Abnormal NEGATIVE [facility] Nitrite, Urine Negative NEGATIVE [facility] pH, UA 5.0 5 - 8 [facility] Protein, UA 1+ Abnormal NEGATIVE [facility] RBC, UA 10 TO 20 [facility] Comment on above: Reference range defi rodger for non-centrifuged specimen. Specific [place], UA 1.017 1.005 - 1.03 [facility] Turbidity UA Turbid Abnormal Clear [facility] Urine Hgb LARGE Abnormal NEGATIVE [facility] Urobilinogen, Urine Normal Normal [facility] WBC, UA TOO NUMEROUS TO COUNT [facility] APTTon 07-18-2022 aPTT Coag (Bld) [Time] 22.8 s [facility] Comment on above: IV Heparin Therapy Range: 48.6-77.8 aPTT Coag (Bld) [Time] 22.8 s Normal 20.5-30.5 [facility] Comment on above: Result Comment: IV Heparin Therapy Range: 48.6-77.8 Performed By: #### A NAX, IFX, PHEP, FKLLC, PE #### [employer] [address], [place] [phone] Vp Project: Bala Skelton MD Basic Metab w/rfx MGon 07-18 (cont.) Normal [facility] Comment on above: Result Comment: Aver age GFR for 50-59 years old: 93 mL/min/1.73sq m Chronic Kidney Disease: <60 mL/min/1.73sq m Kidney failure: <15 mL/min/1.73sq m eGFR calculated using average adult body mass. Additional eGFR calculator available at: http://www.[employer]/multiple_crcl_2012.htm Performed By: #### A NAX, IFX, PHEP, FKLLC, PE #### [facility] [address] [place] [phone] Vp Project: Bala Skelton MD Anion gap [Moles/Vol] 13 mmol/L Normal 9-17 [facility] Comment on above: Performed By: #### A NAX, IFX, PHEP, FKLLC, PE #### [facility] [employer] [address] [place] [phone] Vp Project: Bala Skelton MD Calcium [Mass/Vol] 9.4 mg/dL Normal 8.6-10.4 [facility] Comment on above: Performed By: #### A NAX, IFX, PHEP, FKLLC, PE #### [facility] [address] [place] [phone] Vp Project: Bala Skelton MD Chloride [Moles/Vol] 100 mmol/L Normal 98-107 [facility] Comment on above: Performed By: #### A NAX, IFX, PHEP, FKLLC, PE #### [employer] [address] [place] [phone] Vp Project: Bala Skelton MD CO2 [Moles/Vol] 24 mmol/L Normal 20-31 [facility] Comment on above: Performed By: #### A NAX, IFX, PHEP, FKLLC, PE #### [facility] [address] [place] [address] [phone] Vp Project: Bala Skelton MD Creatinine [Mass/Vol] 1.65 mg/dL High 0.50-0.90 [facility] Comment on above: Performed By: #### A NAX, IFX, PHEP, FKLLC, PE #### [facility] [address] [place] [phone] Vp Project: Bala Skelton MD GFR, Amer 40 mL/min Low >60 [facility] Comment on above: Performed By: #### A NAX, IFX, PHEP, FKLLC, PE #### [address] [address] Vp Project: Bala Skelton MD GFR,non Amer 33 mL/min Low >60 [facility] Comment on above: Performed By: #### A NAX, IFX, PHEP, FKLLC, PE #### [address] [address] Vp Project: Bala Skelton MD Glucose [Mass/Vol] 239 mg/dL High 70-99 [facility] Comment on above: Performed By: #### A NAX, IFX, PHEP, FKLLC, PE #### [address] [address] Vp Project: Bala Skelton MD Potassium [Moles/Vol] 4.9 mmol/L Normal 3.7-5.3 [facility] Comment on above: Performed By: #### A NAX, IFX, PHEP, FKLLC, PE #### [facility] [employer] [address] [place] [phone] Vp Project: Bala Skelton MD Sodium [Moles/Vol] 137 mmol/L Normal 135-144 [facility] Comment on above: Performed By: #### A NAX, IFX, PHEP, FKLLC, PE #### [facility] [address] [place] [address] Vp Project: Bala Skelton MD Urea nitrogen [Mass/Vol] 33 mg/dL High 6-20 [facility] Comment on above: Performed By: #### A NAX, IFX, PHEP, FKLLC, PE #### [facility] [address] [place] [address] Vp Project: Bala Skelton MD Basic Metabolic Panel w/ Ref romulo to MGon 07-18-2022 Anion gap [Moles/Vol] 13 mmol/L 9 - 17 mmol/L [facility] Calcium [Mass/Vol] 9.4 mg/dL 8.6 - 10. 4 mg/dL [facility] [employer] Chloride [Moles/Vol] 100 mmol/L 98 - 107 mmol/L [facility] CO2 [Moles/Vol] 24 mmol/L 20 - 31 mmol/L [facility] Creatinine [Mass/Vol] 1.65 mg/dL High 0.5 - 0.9 mg/dL [facility] GFR 40 mL/min Low 60 - PINF mL/min [facility] GFR Non- 33 mL/min Low 60 - PINF mL/min [facility] GFR/1.73 sq M.predicted MDRD (S/P/Bld) [Vol rate/Area] [facility] Comment on above: Average GFR for 50-5 9 years old: 93 mL/min/1.73sq m Chronic Kidney Disease: <60 mL/min/1.73sq m Kidney failure: <15 mL/min/1.73sq m eGFR calculated using average adult body mass. Additional eGFR calculator available at: http://www.[employer]/multiple_crcl_2012.htm Glucose [Mass/Vol] 239 mg/dL High 70 - 99 mg/dL [facility] Potassium [Moles/Vol] 4.9 mmol/L 3.7 - 5.3 mmol/L [facility] Sodium [Moles/Vol] 137 mmol/L 135 - 144 mmol/L [facility] Urea nitrogen (BldV) [Mass/Vol] 33 mg/dL High 6 - 20 mg/dL [facility] CBC AUTO DIFFon 07-18-2022 BASO # 0.0 103/ul Normal 0.0-0.1 [facility] Comment on above: Performed By: #### C BC #### [facility] [address] [address] [address] Delmer Rea Basophils/100 WBC (Bld) 0.2 % Normal 0.2-2.0 [facility] Comment on above: Performed By: #### C BC #### [facility] [address] [address] [address] Delmer Rea EO # 0.1 103/ul Normal 0.0-0.7 [facility] Comment on above: Performed By: #### C BC #### [facility] [address] [address] [address] Delmer Rea Eosinophils/100 WBC (Bld) 0.7 % Critically low 0.9-7.0 [facility] Comment on above: Performed By: #### C BC #### [facility] [address] [address] [address] Delmer Rea Erythrocyte distribution width (RBC) [Ratio] 13.1 % Normal 11.0-15.0 [facility] Comment on above: Performed By: #### C BC #### [facility] [address] [address] [address] Delmer Rea Hematocrit (Bld) [Volume fraction] 36.9 % Normal 36.0-48.0 [facility] Comment on above: Performed By: #### C BC #### [facility] [address] [address] [address] Delmer Rea Hemoglobin (Bld) [Mass/Vol] 12.5 g/dL Normal 12.0-16.0 [facility] Comment on above: Performed By: #### C BC #### [facility] [address] [address] [address] Delmer Rea IG # 0.08 10e3/ul Critically high 0.00-0.03 [facility] Comment on above: Performed By: #### C BC #### [facility] [address] [address] [address] Delmer Rea IG % 0.6 % Critically high 0.0-0.5 [facility] Comment on above: Performed By: #### C BC #### [facility] [address] [address] [address] Delmer Rea LYMPH # 1.5 103/ul Normal 1.2-3.8 [facility] Comment on above: Performed By: #### C BC #### [facility] [address] [place] [address] Dr. Delmer Rea Lymphocytes/100 WBC (Bld) 11.0 % Critically low 20.5-60.0 [facility] Comment on above: Performed By: #### C BC #### [facility] [address] [place] [address] Dr. Delmer Rea MANUAL DIFF REQ NO Normal [facility] Comment on above: Performed By: #### C BC #### [facility] [address] [place] [address] Dr. Delmer Rea MCH (RBC) [Entitic mass] 29.0 pg Normal 26.7-34.0 [facility] Comment on above: Performed By: #### C BC #### [facility] [address] [place] [address] Dr. Delmer Rea MCHC (RBC) [Mass/Vol] 33.9 g/dL Normal 29.9-35.2 [facility] Comment on above: Performed By: #### C BC #### [facility] [address] [place] [address] Dr. Delmer Rea MCV (RBC) [Entitic vol] 85.6 fL Normal 81.0-99.0 [facility] Comment on above: Performed By: #### C BC #### [facility] [address] [place] [address] Dr. Delmer Rea MONO # 0.8 103/ul Normal 0.3-0.8 [facility] Comment on above: Performed By: #### C BC #### [facility] [address] [address] [address] Delmer Rea Monocytes/100 WBC (Bld) 5.9 % Normal 1.7-12.0 [facility] Comment on above: Performed By: #### C BC #### [facility] [address] [address] [address] Delmer Rea NEUT # 11.2 103/ul Critically high 1.4-6.5 [facility] Comment on above: Performed By: #### C BC #### [facility] [address] [place] [address] Dr. Delmer Rea Neutrophils/100 WBC (Bld) 81.6 % Critically high 43.0-75.0 [facility] Comment on above: Performed By: #### C BC #### [facility] [address] [place] [address] Dr. Delmer Rea Platelet mean volume (Bld) [Entitic vol] 10.3 fL Normal 9.5-13.5 [facility] Comment on above: Performed By: #### C BC #### [facility] [address] [address] [address] Delmer Rea PLT 362 103/ul Normal 150-450 [facility] Comment on above: Performed By: #### C BC #### [facility] [address] [place] [address] Dr. Delmer Rea RBC 4.31 106/ul Normal 4.20-5.40 [facility] Comment on above: Performed By: #### C BC #### [facility] [address] [place] [address] Dr. Delmer Rea WBC 13.7 103/ul Critically high 4.0-11.0 [facility] Comment on above: Performed By: #### C BC #### [facility] [address] [place] [address] Dr. Delmer Rea CBC with Auto Differentialon 07-18-2022 Absolute Eos # 0.08 [facility] Absolute Immature Granulocyte 0.08 [facility] Absolute Lymph # 2.13 [facility] Absolute Preble # 0.84 [facility] Basophils (Bld) [#/Vol] 0.04 10*3/uL [facility] Basophils/100 WBC (Bld) 0 % 0 - 2 % [facility] Eosinophils/100 WBC (Bld) 1 % 1 - 4 % [facility] Hematocrit (Bld) [Volume fraction] 35.4 % Low 36.3 - 47.1 % [facility] Hemoglobin (Bld) [Mass/Vol] 11.8 g/dL Low 11.9 - 15.1 g/dL [facility] Immature granulocytes/100 WBC (Bld) 1 % High 0 [facility] Lymphocytes/100 WBC (Bld) 17 % Low 24 - 43 % [facility] MCH (RBC) [Entitic mass] 28.6 pg 25.2 - 33.5 pg [facility] MCHC (RBC) [Mass/Vol] 33.3 g/dL 28.4 - 34.8 g/dL [facility] MCV (RBC) [Entitic vol] 85.7 fL 82.6 - 102.9 fL [facility] Monocytes/100 WBC (Bld) 7 % 3 - 12 % [facility] NRBC Automated 0.0 0.0 per 100 WBC [facility] Platelet distribution width (Bld) [Ratio] 13.2 % 11.8 - 14.4 % [facility] Platelet mean volume (Bld) [Entitic vol] 10.4 fL 8.1 - 13.5 fL [facility] Platelets (Bld) [#/Vol] 339 10*3/uL [facility] RBC (Bld) [#/Vol] 4.13 10*6/uL 3.95 - 5.1 1 m/uL [facility] Segmented neutrophils/100 WBC (Bld) 74 % High 36 - 65 % [facility] Segs Absolute 9.11 High [facility] WBC (Bld) [#/Vol] 12.3 10*3/uL High [facility] CBC with Diffon 07-18-2022 Abs. Basophil 0.04 k/uL Normal 0.00-0.20 [facility] Comment on above: Performed By: #### A NAX, IFX, PHEP, FKLLC, PE #### [address] [address] Vp Project: Bala Skelton MD Abs.Imm.Granulocyte 0.08 k/uL Normal 0.00-0.30 [facility] Comment on above: Performed By: #### A NAX, IFX, PHEP, FKLLC, PE #### [place] [address] Vp Project: Bala Skelton MD Abs.Neutrophil (Seg) 9.11 k/uL High 1.50-8.10 [facility] Comment on above: Performed By: #### A NAX, IFX, PHEP, FKLLC, PE #### [place] [address] Vp Project: Bala Skelton MD Basophils/100 WBC (Bld) 0 % Normal 0-2 [facility] Comment on above: Performed By: #### A NAX, IFX, PHEP, FKLLC, PE #### [place] [address] Vp Project: Bala Skelton MD Eosinophils (Bld) [#/Vol] 0.08 10*3/uL Normal 0.00-0.44 [facility] Comment on above: Performed By: #### A NAX, IFX, PHEP, FKLLC, PE #### [address] [address] Vp Project: Bala Skelton MD Eosinophils/100 WBC (Bld) 1 % Normal 1-4 [facility] Comment on above: Performed By: #### A NAX, IFX, PHEP, FKLLC, PE #### [address] [address] Vp Project: Bala Skelton MD Erythrocyte distribution width (RBC) [Ratio] 13.2 % Normal 11.8-14.4 [facility] Comment on above: Performed By: #### A NAX, IFX, PHEP, FKLLC, PE #### [address] [address] Vp Project: Bala Skelton MD Hematocrit (Bld) [Volume fraction] 35.4 % Low 36.3-47.1 [facility] Comment on above: Performed By: #### A NAX, IFX, PHEP, FKLLC, PE #### [address] [address] Vp Project: Bala Skelton MD Hemoglobin (Bld) [Mass/Vol] 11.8 g/dL Low 11.9-15.1 [facility] Comment on above: Performed By: #### A NAX, IFX, PHEP, FKLLC, PE #### [address] [address] Vp Project: Bala Skelton MD Immature granulocytes/100 WBC (Bld) 1 % High 0 [facility] Comment on above: Performed By: #### A NAX, IFX, PHEP, FKLLC, PE #### [address] [address] Vp Project: Bala Skelton MD Lymphocytes (Bld) [#/Vol] 2.13 10*3/uL Normal 1.10-3.70 [facility] Comment on above: Performed By: #### A NAX, IFX, PHEP, FKLLC, PE #### [facility] [employer] [address] [place] [address] Vp Project: Bala Skelton MD Lymphocytes/100 WBC (Bld) 17 % Low 24-43 [facility] Comment on above: Performed By: #### A NAX, IFX, PHEP, FKLLC, PE #### [address] [address] Vp Project: Bala Skelton MD MCH (RBC) [Entitic mass] 28.6 pg Normal 25.2-33.5 [facility] Comment on above: Performed By: #### A NAX, IFX, PHEP, FKLLC, PE #### [address] [address] Vp Project: Bala Skelton MD MCHC (RBC) [Mass/Vol] 33.3 g/dL Normal 28.4-34.8 [facility] Comment on above: Performed By: #### A NAX, IFX, PHEP, FKLLC, PE #### [place] [address] Vp Project: Bala Skelton MD MCV (RBC) [Entitic vol] 85.7 fL Normal 82.6-102.9 [facility] Comment on above: Performed By: #### A NAX, IFX, PHEP, FKLLC, PE #### [address] [address] Vp Project: Bala Skelton MD Monocytes (Bld) [#/Vol] 0.84 10*3/uL Normal 0.10-1.20 [facility] Comment on above: Performed By: #### A NAX, IFX, PHEP, FKLLC, PE #### [address] [address] Vp Project: Bala Skelton MD Monocytes/100 WBC (Bld) 7 % Normal 3-12 [facility] Comment on above: Performed By: #### A NAX, IFX, PHEP, FKLLC, PE #### [address] [address] Vp Project: Bala Skelton MD Neutrophil (Seg) 74 % High 36-65 [facility] Comment on above: Performed By: #### A NAX, IFX, PHEP, FKLLC, PE #### [address] [address] Vp Project: Bala Skelton MD NRBC Automated 0.0 per 100 WBC Normal 0.0 [facility] Comment on above: Performed By: #### A NAX, IFX, PHEP, FKLLC, PE #### [address] [address] Vp Project: Bala Skelton MD Platelet mean volume (Bld) [Entitic vol] 10.4 fL Normal 8.1-13.5 [facility] Comment on above: Performed By: #### A NAX, IFX, PHEP, FKLLC, PE #### [address] [address] Vp Project: Bala Skelton MD Platelets (Bld) [#/Vol] 339 10*3/uL Normal 138-453 [facility] Comment on above: Performed By: #### A NAX, IFX, PHEP, FKLLC, PE #### [address] [address] Vp Project: Bala Skelton MD RBC (Bld) [#/Vol] 4.13 10*6/uL Normal 3.95-5.11 [facility] Comment on above: Performed By: #### A NAX, IFX, PHEP, FKLLC, PE #### [address] [address] Vp Project: Bala Skelton MD WBC (Bld) [#/Vol] 12.3 10*3/uL High 3.5-11.3 [facility] Comment on above: Performed By: #### A NAX, IFX, PHEP, FKLLC, PE #### [facility] [address] [place] [address] Vp Project: Bala Skelton MD CT ABD/PELVIS WO CONon [...] MARAH ALCANTAR Date: 2022-07-18 12:01 Normal [facility]on 07-07 SARS-CoV-2 (COVID-19) RNA KASI+probe Ql (Unsp spec) Not detected Normal NOT DETECTED [facility] Comment on above: Result Comment: When [...] for this test is supported by the [employer] of Health and Human Service's declaration that [...] DLDL, CON, LIPID, T7, CMP, TSH #### [facility] [address] [place] [address] Dr. Delmer Rea ER URINE PROFILEon 2 Bilirubin Ql (U) Negative Normal NEGATIVE [facility] Comment on above: Performed By: #### U MICRO, ERUR #### [facility] [address] [place] [address] Dr. Delmer Rea Clarity (U) SL CLOUDY Abnormal CLEAR [facility] Comment on above: Performed By: #### U MICRO, ERUR #### [facility] [address] [place] [address] Dr. Delmer Rea Color (U) LT. YELLOW Normal YELLOW [facility] Comment on above: Performed By: #### U MICRO, ERUR #### [facility] [address] [place] [address] Dr. Delmer Rea ERUAHD A micrscopic examina tion will be performed if indicated. Normal [facility] Comment on above: Performed By: #### U MICRO, ERUR #### [facility] [address] [address] [address] Delmer Rea Glucose Ql (U) 1000 mg/dl Abnormal NEGATIVE [facility] Comment on above: Performed By: #### U MICRO, ERUR #### [facility] [address] [address] [address] Delmer Rea Hemoglobin Ql (U) LARGE Abnormal NEGATIVE [facility] Comment on above: Performed By: #### U MICRO, ERUR #### [facility] [address] [address] [address] Delmer Rea Ketones Ql (U) Negative Normal NEGATIVE [facility] Comment on above: Performed By: #### U MICRO, ERUR #### [facility] [address] [address] [address] Delmer Rea LEUKOCYTES SMALL Abnormal NEGATIVE [facility] Comment on above: Performed By: #### U MICRO, ERUR #### [facility] [address] [address] [address] Delmer Rea Nitrite Ql (U) Positive Abnormal NEGATIVE [facility] Comment on above: Performed By: #### U MICRO, ERUR #### [facility] [address] [address] [address] Delmer Rea pH (U) 5.5 [pH] Normal 5-9 [facility] Comment on above: Performed By: #### U MICRO, ERUR #### [facility] [address] [address] [address] Delmer Rea SPEC GRAVITY 1.020 Normal 1.005-<=1.025 [facility] Comment on above: Performed By: #### U MICRO, ERUR #### [facility] [address] [address] [address] Delmer Rea UA PROTEIN TRACE Normal NEGATIVE/ TRACE [facility] Comment on above: Performed By: #### U MICRO, ERUR #### [facility] [address] [place] [address] Dr. Delmer Rea UR MICRO IND INDICATED Normal [facility] Comment on above: Performed By: #### U MICRO, ERUR #### [facility] [address] [address] [address] Delmer Rea Urobilinogen Qn (U) 0.2 {Juanita'U}/dL Normal 0.2 - 1. 0 [facility] Comment on above: Performed By: #### U MICRO, ERUR #### [facility] [address] [address] [address] Delmer Rea Laboratory - Chemistry and C hemistry - challengeon 07-18-2022 Glucose [Mass/Vol] 189 mg/dL [facility] No Panel Informationon 07-18 Interpretation and review of laboratory results Abnormal [facility] P[facility] Glucose Fingerstickon Glucose [Mass/Vol] 227 mg/dL High 65 - 105 mg/dL [facility] Interpretation and review of laboratory results Abnormal [facility] Interpretation and review of laboratory results Abnormal [facility] POCT glucoseOrdered By: Jason Swenson on 07-18-2022 Interpretation and review of laboratory results Normal [facility] PROF CHEM 8 (BAS METB)on Anion gap [Moles/Vol] 13.6 mmol/L Normal [facility] Comment on above: Performed By: #### U MICRO, ERUR #### [facility] [address] [address] [address] Delmer Rea Calcium [Mass/Vol] 9.6 mg/dL Normal 8.5-10.1 [facility] Comment on above: Performed By: #### U MICRO, ERUR #### [facility] [address] [address] [address] Delmer Rea Chloride [Moles/Vol] 98 mmol/L Normal 98-107 [facility] Comment on above: Performed By: #### U MICRO, ERUR #### [facility] [address] [address] [address] Delmer Rea CO2 [Moles/Vol] 26.0 mmol/L Normal 21.0-32.0 [facility] Comment on above: Performed By: #### U MICRO, ERUR #### [facility] [address] [address] [address] Delmer Rea Creatinine [Mass/Vol] 1.45 mg/dL Critically high 0.55-1.02 [facility] Comment on above: Performed By: #### U MICRO, ERUR #### [facility] [address] [address] [address] Delmer Rea EGFR-AF BAHAMIAN 46 mL/min/1.73m2 Critically low >=60 [facility] Comment on above: Performed By: #### U MICRO, ERUR #### [facility] [address] [address] [address] Delmer Rea EGFR-NON AF BAHAMIAN 38 mL/min/1.73m2 Critically low >=60 [facility] Comment on above: Performed By: #### U MICRO, ERUR #### [facility] [address] [place] [address] Dr. Delmer Rea Glucose [Mass/Vol] 314 mg/dL Critically high 74-106 [facility] Comment on above: Performed By: #### U MICRO, ERUR #### [facility] [address] [place] [address] Dr. Delmer Rea Potassium [Moles/Vol] 4.6 mmol/L Normal 3.5-5.1 [facility] Comment on above: Result Comment: spec imen slightly hemolyzed Performed By: #### U MICRO, ERUR #### [facility] [address] [address] [address] Delmer Rea Sodium [Moles/Vol] 133 mmol/L Critically low 136-145 Th [facility] Comment on above: Performed By: #### U MICRO, ERUR #### [facility] [address] [place] [address] Dr. Delmer Rea Urea nitrogen [Mass/Vol] 35.0 mg/dL Critically high 7.0-18.0 [facility] Comment on above: Performed By: #### U MICRO, ERUR #### [facility] [address] [place] [address] Dr. Delmer Rea Urea nitrogen/Creatinine [Mass ratio] 24.1 mg/mg Normal [facility] Comment on above: Performed By: #### U MICRO, ERUR #### [facility] [address] [address] [address] Delmer Rea PTon 07-18-2022 INR Coag (PPP) [Relative time] 0.9 {INR} Normal [facility] Comment on above: Result Comment: Therapeutic Range: Moderate Anticoagulant Intensity: INR = 2.0-3.0 High Anticoagulant Intensity: INR = 2.5-3.5 Performed By: #### A NAX, IFX, PHEP, FKLLC, PE #### [facility] [address] [place] [id number] Vp Project: Bala Skelton MD PT Coag (PPP) [Time] 10.0 s Normal 9.1-12.3 [facility] Comment on above: Performed By: #### A NAX, IFX, PHEP, FKLLC, PE #### [facility] [employer] [address] [place] [id number] Vp Project: Bala Skelton MD Protime-INRon 07-18-2022 INR Coag (Bld) [Relative time] 0.9 {INR} [facility] Comment on above: Therapeutic Range: Moderate Anticoagulant Intensity: INR = 2.0-3.0 High Anticoagulant Intensity: INR = 2.5-3.5 PT Coag (PPP) [Time] 10 s [facility] URINE MICROSCOPIC ONLYon BACTERIA SMALL Abnormal NONE SEEN [facility] Comment on above: Performed By: #### U MICRO, ERUR #### [facility] [address] [place] [address] Dr. Delmer Rea Bacteria identified Cx Nom (U) INDICATED Normal [facility] Comment on above: Performed By: #### U MICRO, ERUR #### [facility] [address] [place] [address] Dr. Delmer Rea CAST NONE SEEN Normal NONE SEEN [facility] Comment on above: Performed By: #### U MICRO, ERUR #### [facility] [address] [address] [address] Delmer Rea Crystals LM Nom (Urine sed) NONE SEEN Normal NONE SEEN [facility] Comment on above: Performed By: #### U MICRO, ERUR #### [facility] [address] [place] [address] Dr. Delmer Rea Epithelial cells LM Ql (Urine sed) FEW Abnormal NONE SEEN /RARE [facility] Comment on above: Performed By: #### U MICRO, ERUR #### [facility] [address] [place] [address] Dr. Delmer Rea MUCOUS NONE SEEN Normal NONE SEEN [facility] Comment on above: Performed By: #### U MICRO, ERUR #### [facility] [address] [place] [address] Dr. Delmer Rea RBC 20-50 Abnormal 0-2 [facility] Comment on above: Performed By: #### U MICRO, ERUR #### [facility] [address] [place] [address] Dr. Delmer Rea WBC 10-20 Abnormal NONE SEEN [facility] Comment on above: Performed By: #### U MICRO, ERUR #### [facility] [address] [place] [address] Dr. Delmer Rea ALEXANDRE by IFAon 04-18-2022 Antinuclear Antibodies, IFA Negative Normal [facility] Comment on above: Result Comment: Nega tive <1:80 Borderline 1:80 Positive >1:80 ICAP nomenclature: AC-0 For more information about Hep-2 cell patterns use ANApatterns.org, the official website for the International Consensus on Antinuclear Antibody (ALEXANDRE) Patterns (ICAP). Performed By: #### U MICRO, ERUR #### [facility] [address] [place] [address] Dr. Delmer Rea ANTISTREPTOLYSIN O AB (ASO)o n 04-16-2022 Antistreptolysin O Ab 23.8 IU/mL Normal 0.0-200.0 [facility] Comment on above: Performed By: #### U MICRO, ERUR #### [facility] [address] [address] [address] Delmer Rea INSULINon 04-16-2022 Insulin 96.9 uIU/mL Critically high 2.6-24.9 [facility] Comment on above: Performed By: #### L IPA, DLDL, CON, LIPID, T7, CMP, TSH #### [facility] [address] [place] [address] Dr. Delmer Rea RHEUMATOID FACTORon 04-16-20 RA Latex Turbid. 13.5 IU/mL Normal <14.0 [facility] Comment on above: Performed By: #### L IPA, DLDL, CON, LIPID, T7, CMP, TSH #### [facility] [address] [place] [address] Dr. Delmer Rea BNPon 04-15-2022 Natriuretic peptide B (Bld) [Mass/Vol] 168.0 pg/mL Normal <=900.0 [facility] Comment on above: Performed By: #### L IPA, DLDL, CON, LIPID, T7, CMP, TSH #### [facility] [address] [place] [address] Dr. Delmer Rea CBC AUTO DIFFon 04-15-2022 BASO # 0.0 103/ul Normal 0.0-0.1 [facility] Comment on above: Performed By: #### L IPA, DLDL, CON, LIPID, T7, CMP, TSH #### [facility] [address] [address] [address] Delmer Rea Basophils/100 WBC (Bld) 0.4 % Normal 0.2-2.0 [facility] Comment on above: Performed By: #### L IPA, DLDL, CON, LIPID, T7, CMP, TSH #### [facility] [address] [place] [address] Dr. Delmer Rea EO # 0.1 103/ul Normal 0.0-0.7 [facility] Comment on above: Performed By: #### L IPA, DLDL, CON, LIPID, T7, CMP, TSH #### [facility] [address] [place] [address] Dr. Delmer Rea Eosinophils/100 WBC (Bld) 2.3 % Normal 0.9-7.0 [facility] Comment on above: Performed By: #### L IPA, DLDL, CON, LIPID, T7, CMP, TSH #### [facility] [address] [address] [address] Delmer Rea Erythrocyte distribution width (RBC) [Ratio] 11.9 % Normal 11.0-15.0 [facility] Comment on above: Performed By: #### L IPA, DLDL, CON, LIPID, T7, CMP, TSH #### [facility] [address] [place] [address] Dr. Delmer Rea Hematocrit (Bld) [Volume fraction] 37.8 % Normal 36.0-48.0 [facility] Comment on above: Performed By: #### L IPA, DLDL, CON, LIPID, T7, CMP, TSH #### [facility] [address] [place] [address] Dr. Delmer Rea Hemoglobin (Bld) [Mass/Vol] 12.7 g/dL Normal 12.0-16.0 [facility] Comment on above: Performed By: #### L IPA, DLDL, CON, LIPID, T7, CMP, TSH #### [facility] [address] [place] [address] Dr. Delmer Rea IG # 0.01 10e3/ul Normal 0.00-0.03 [facility] Comment on above: Performed By: #### L IPA, DLDL, CON, LIPID, T7, CMP, TSH #### [facility] [address] [place] [address] Dr. Delmer Rea IG % 0.2 % Normal 0.0-0.5 [facility] Comment on above: Performed By: #### L IPA, DLDL, CON, LIPID, T7, CMP, TSH #### [facility] [address] [place] [address] Dr. Delmer Rea LYMPH # 1.8 103/ul Normal 1.2-3.8 [facility] Comment on above: Performed By: #### L IPA, DLDL, CON, LIPID, T7, CMP, TSH #### [facility] [address] [place] [address] Dr. Delmer Rea Lymphocytes/100 WBC (Bld) 34.6 % Normal 20.5-60.0 [facility] Comment on above: Performed By: #### L IPA, DLDL, CON, LIPID, T7, CMP, TSH #### [facility] [address] [place] [address] Dr. Delmer Rea MANUAL DIFF REQ NO Normal [facility] Comment on above: Performed By: #### L IPA, DLDL, CON, LIPID, T7, CMP, TSH #### [facility] [address] [place] [address] Dr. Delmer Rea MCH (RBC) [Entitic mass] 28.7 pg Normal 26.7-34.0 [facility] Comment on above: Performed By: #### L IPA, DLDL, CON, LIPID, T7, CMP, TSH #### [facility] [address] [place] [address] Dr. Delmer Rea MCHC (RBC) [Mass/Vol] 33.6 g/dL Normal 29.9-35.2 [facility] Comment on above: Performed By: #### L IPA, DLDL, CON, LIPID, T7, CMP, TSH #### [facility] [address] [place] [address] Dr. Delmer Rea MCV (RBC) [Entitic vol] 85.5 fL Normal 81.0-99.0 [facility] Comment on above: Performed By: #### L IPA, DLDL, CON, LIPID, T7, CMP, TSH #### [facility] [address] [place] [address] Dr. Delmer Rea MONO # 0.5 103/ul Normal 0.3-0.8 [facility] Comment on above: Performed By: #### L IPA, DLDL, CON, LIPID, T7, CMP, TSH #### [facility] [address] [place] [address] Dr. Delmer Rea Monocytes/100 WBC (Bld) 8.6 % Normal 1.7-12.0 [facility] Comment on above: Performed By: #### L IPA, DLDL, CON, LIPID, T7, CMP, TSH #### [facility] [address] [place] [address] Dr. Delmer Rea NEUT # 2.8 103/ul Normal 1.4-6.5 [facility] Comment on above: Performed By: #### L IPA, DLDL, CON, LIPID, T7, CMP, TSH #### [facility] [address] [place] [address] Dr. Delmer Rea Neutrophils/100 WBC (Bld) 53.9 % Normal 43.0-75.0 [facility] Comment on above: Performed By: #### L IPA, DLDL, CON, LIPID, T7, CMP, TSH #### [facility] [address] [place] [address] Dr. Delmer Rea Platelet mean volume (Bld) [Entitic vol] 10.2 fL Normal 9.5-13.5 [facility] Comment on above: Performed By: #### L IPA, DLDL, CON, LIPID, T7, CMP, TSH #### [facility] [address] [place] [address] Dr. Delmer Rea PLT 326 103/ul Normal 150-450 [facility] Comment on above: Performed By: #### L IPA, DLDL, CON, LIPID, T7, CMP, TSH #### [facility] [address] [place] [address] Dr. Delmer Rae RBC 4.42 106/ul Normal 4.20-5.40 [facility] Comment on above: Performed By: #### L IPA, DLDL, CON, LIPID, T7, CMP, TSH #### [facility] [address] [place] [address] Dr. Delmer Rea WBC 5.2 103/ul Normal 4.0-11.0 [facility] Comment on above: Performed By: #### L IPA, DLDL, CON, LIPID, T7, CMP, TSH #### [facility] [address] [place] [address] Dr. Delmer Rea CRPon 04-15-2022 CRP [Mass/Vol] mg/L Normal <=1.0 [facility] Comment on above: Performed By: #### L IPA, DLDL, CON, LIPID, T7, CMP, TSH #### [facility] [address] [address] [address] Delmer Rea FREE THYROXINE INDEX T7on FTI 5.07 Critically high 1.30-4.50 [facility] Comment on above: Performed By: #### L IPA, DLDL, CON, LIPID, T7, CMP, TSH #### [facility] [address] [address] [address] Delmer Rea T3U 37.0 % Normal 30.0-39.0 [facility] Comment on above: Performed By: #### L IPA, DLDL, CON, LIPID, T7, CMP, TSH #### [facility] [address] [address] [address] Delmer Rea T4 [Mass/Vol] 13.70 ug/dL Normal 4.80-13.90 [facility] Comment on above: Performed By: #### L IPA, DLDL, CON, LIPID, T7, CMP, TSH #### [facility] [address] [address] [address] Delmer Rea GLYCOHEMOGLOBIN A1Con 2021 ADA RECOMMENDATION SEE BELOW Normal [facility] Comment on above: Result Comment: ADA RECOMMENDED LIMIT 4.0 - 6.0 ADA THERAPEUTIC TARGET < 7.0 ACTION SUGGESTED > 7.0 Performed By: #### L IPA, DLDL, CON, LIPID, T7, CMP, TSH #### [facility] [address] [address] [address] Delmer Rea Glucose [Mass/Vol] 174 mg/dL Normal [facility] Comment on above: Performed By: #### L IPA, DLDL, CON, LIPID, T7, CMP, TSH #### [facility] [address] [address] [address] Delmer Rea HbA1c (Bld) [Mass fraction] 7.7 % Critically high 4.5-6.2 [facility] Comment on above: Performed By: #### L IPA, DLDL, CON, LIPID, T7, CMP, TSH #### [facility] [address] [address] [address] Delmer Rea IRONon 04-15-2022 Iron [Mass/Vol] 84.0 ug/dL Normal 50.0-170.0 [facility] Comment on above: Performed By: #### U MICRO, ERUR #### [facility] [address] [address] [address] Delmer Rea LIPID PROFILEon 04-15-2022 CHOL-HDL RATIO NORM SEE BELOW Normal [facility] Comment on above: Result Comment: 3.3 - 4.4 LOW RISK 4.4 - 7.1 AVERAGE RISK 7.1 - 11.0 MODERATE RISK >11.0 HIGH RISK Performed By: #### L IPA, DLDL, CON, LIPID, T7, CMP, TSH #### [facility] [address] [place] [address] Dr. Delmer Rea Cholesterol [Mass/Vol] 239 mg/dL Critically high <=200 [facility] Comment on above: Performed By: #### L IPA, DLDL, CON, LIPID, T7, CMP, TSH #### [facility] [address] [place] [address] Dr. Delmer Rea Cholesterol in HDL [Mass/Vol] 43 mg/dL Normal 40-60 [facility] Comment on above: Performed By: #### L IPA, DLDL, CON, LIPID, T7, CMP, TSH #### [facility] [address] [address] [address] Delmer Rea Cholesterol in LDL [Mass/Vol] 131.8 mg/dL Normal [facility] Comment on above: Performed By: #### L IPA, DLDL, CON, LIPID, T7, CMP, TSH #### [facility] [address] [place] [address] Dr. Delmer Rea Cholesterol.total/C holesterol in HDL [Mass ratio] 5.6 {ratio} Normal [facility] Comment on above: Performed By: #### L IPA, DLDL, CON, LIPID, T7, CMP, TSH #### [facility] [address] [address] [address] Delmer Rea HDL NORMAL > or = 60 mg/dl - LO W CARDIOVASCULAR RISK <40 mg/dl - HIGH CARDIOVASCULAR RISK Normal [facility] Comment on above: Performed By: #### L IPA, DLDL, CON, LIPID, T7, CMP, TSH #### [facility] [address] [address] [address] Delmer Rea LDL CALC NORMAL SEE BELOW Normal [facility] Comment on above: Result Comment: <100 mg/dl OPTIMAL 100 - 129 mg/dl NEAR OR ABOVE OPTIMAL 130 - 159 mg/dl BORDERLINE HIGH 160 - 189 mg/dl HIGH >190 mg/dl VERY HIGH Performed By: #### L IPA, DLDL, CON, LIPID, T7, CMP, TSH #### [facility] [address] [address] [address] Delmer Rea Triglyceride [Mass/Vol] 321 mg/dL Critically high <=150 [facility] Comment on above: Performed By: #### L IPA, DLDL, CON, LIPID, T7, CMP, TSH #### [facility] [address] [address] [address] Delmer Rea VLDL CALC 64.2 mg/dL Normal [facility] Comment on above: Performed By: #### L IPA, DLDL, CON, LIPID, T7, CMP, TSH #### [facility] [address] [place] [address] Dr. Delmer Rea PROF 14(COMP METB)on 022 Albumin [Mass/Vol] 3.6 g/dL Normal 3.4-5.0 [facility] Comment on above: Performed By: #### L IPA, DLDL, CON, LIPID, T7, CMP, TSH #### [facility] [address] [address] [address] Delmer Rea Albumin/Globulin [Mass ratio] 0.9 {ratio} Normal [facility] Comment on above: Performed By: #### L IPA, DLDL, CON, LIPID, T7, CMP, TSH #### [facility] [address] [place] [address] Dr. Delmer Rea ALP [Catalytic activity/Vol] 98 U/L Normal 46-116 [facility] Comment on above: Performed By: #### L IPA, DLDL, CON, LIPID, T7, CMP, TSH #### [facility] [address] [address] [address] Delmer Rea ALT [Catalytic activity/Vol] 21 U/L Normal 14-59 [facility] Comment on above: Performed By: #### L IPA, DLDL, CON, LIPID, T7, CMP, TSH #### [facility] [address] [place] [address] Dr. Delmer Rea Anion gap [Moles/Vol] 15.8 mmol/L Normal [facility] Comment on above: Performed By: #### L IPA, DLDL, CON, LIPID, T7, CMP, TSH #### [facility] [address] [place] [address] Dr. Delmer Rea AST [Catalytic activity/Vol] 10 U/L Critically low 15-37 [facility] Comment on above: Performed By: #### L IPA, DLDL, CON, LIPID, T7, CMP, TSH #### [facility] [address] [address] [address] Delmer Rea Bilirubin [Mass/Vol] 0.6 mg/dL Normal 0.2-1.0 [facility] Comment on above: Performed By: #### L IPA, DLDL, CON, LIPID, T7, CMP, TSH #### [facility] [address] [place] [address] Dr. Delmer Rea Calcium [Mass/Vol] 9.4 mg/dL Normal 8.5-10.1 [facility] Comment on above: Performed By: #### L IPA, DLDL, CON, LIPID, T7, CMP, TSH #### [facility] [address] [place] [address] Dr. Delmer Rea Chloride [Moles/Vol] 105 mmol/L Normal 98-107 [facility] Comment on above: Performed By: #### L IPA, DLDL, CON, LIPID, T7, CMP, TSH #### [facility] [address] [place] [address] Dr. Delmer Rea CO2 [Moles/Vol] 26.2 mmol/L Normal 21.0-32.0 [facility] Comment on above: Performed By: #### L IPA, DLDL, CON, LIPID, T7, CMP, TSH #### [facility] [address] [address] [address] Delmer Rea Creatinine [Mass/Vol] 1.26 mg/dL Critically high 0.55-1.02 [facility] Comment on above: Performed By: #### L IPA, DLDL, CON, LIPID, T7, CMP, TSH #### [facility] [address] [address] [address] Delmer Rea EGFR-AF BAHAMIAN 54 mL/min/1.73m2 Critically low >=60 [facility] Comment on above: Performed By: #### L IPA, DLDL, CON, LIPID, T7, CMP, TSH #### [facility] [address] [place] [address] Dr. Delmer Rea EGFR-NON AF BAHAMIAN 45 mL/min/1.73m2 Critically low >=60 [facility] Comment on above: Performed By: #### L IPA, DLDL, CON, LIPID, T7, CMP, TSH #### [facility] [address] [place] [address] Dr. Delmer Rea Globulin (S) [Mass/Vol] 3.9 g/dL Normal [facility] Comment on above: Performed By: #### L IPA, DLDL, CON, LIPID, T7, CMP, TSH #### [facility] [address] [place] [address] Dr. Delmer Rea Glucose [Mass/Vol] 125 mg/dL Critically high 74-106 [facility] Comment on above: Performed By: #### L IPA, DLDL, CON, LIPID, T7, CMP, TSH #### [facility] [address] [place] [address] Dr. Delmer Rea Potassium [Moles/Vol] 4.0 mmol/L Normal 3.5-5.1 [facility] Comment on above: Performed By: #### L IPA, DLDL, CON, LIPID, T7, CMP, TSH #### [facility] [address] [address] [address] Delmer Rea Protein [Mass/Vol] 7.5 g/dL Normal 6.4-8.2 [facility] Comment on above: Performed By: #### L IPA, DLDL, CON, LIPID, T7, CMP, TSH #### [facility] [address] [address] [address] Delmer Rea Sodium [Moles/Vol] 143 mmol/L Normal 136-145 [facility] Comment on above: Performed By: #### L IPA, DLDL, CON, LIPID, T7, CMP, TSH #### [facility] [address] [place] [address] Dr. Delmer Rea Urea nitrogen [Mass/Vol] 34.0 mg/dL Critically high 7.0-18.0 [facility] Comment on above: Performed By: #### L IPA, DLDL, CON, LIPID, T7, CMP, TSH #### [facility] [address] [place] [address] Dr. Delmer Rea Urea nitrogen/Creatinine [Mass ratio] 27.0 mg/mg Normal [facility] Comment on above: Performed By: #### L IPA, DLDL, CON, LIPID, T7, CMP, TSH #### [facility] [address] [place] [address] Dr. Delmer Rea TSHon 04-15-2022 TSH 0.009 uIU/mL Critically low 0.358-3.740 [facility] Comment on above: Performed By: #### L IPA, DLDL, CON, LIPID, T7, CMP, TSH #### [facility] [address] [place] [address] Dr. Delmer Rea TSH RANGE SEE BELOW Normal [facility] Comment on above: Result Comment: <0.3 4 UIU/ml HYPERTHYROID 0.34-5.60 UIU/ml EUTHYROID >5.60 UIU/ml HYPOTHYROID Performed By: #### L IPA, DLDL, CON, LIPID, T7, CMP, TSH #### [facility] [address] [address] [address] Delmer Rea URIC ACID SERUMon 04-15-2022 Urate [Mass/Vol] 7.1 mg/dL Critically high 2.6-6.0 [facility] Comment on above: Performed By: #### L IPA, DLDL, CON, LIPID, T7, CMP, TSH #### [facility] [address] [address] [address] Delmer Rea VITAMIN D 25 OHon 04-15-2022 VIT D 25-OH 23.8 ng/mL Normal [facility] Comment on above: Performed By: #### U MICRO, ERUR #### [facility] [address] [address] [address] Delmer Rea VIT D RANGES SEE BELOW Normal [facility] Comment on above: Result Comment: <20 ng/mL Vit D deficient 20 - <30 ng/mL Vit D insufficient 30 - 100 ng/mL Vit D sufficient >100 ng/mL Potential Toxicity Performed By: #### U MICRO, ERUR #### [facility] [address] [address] [address] Delmer Bowman 11-09-2021 CNPN Telephone (GENBMI) -------- ASA THOMPSON ([id number]) 1970 F Date Time Provider Department 11/09/21 ABRAHAM PACHECO GENI During your visit today, we recorded the following information about you: Abraham Pacheco, RN 11/09/2021 4:54 PM Addendum BMI SPECIALTY [...] Encounter Status:Closed by ABRAHAM PACHECO on 11/09/21 [facility] Gracie 10-05-2021 CNPN Telephone ([facility]) -------- ASA THOMPSON ([id number]) 1970 F Date Time Provider Department 10/05/21 ABRAHAM PACHECO During your visit today, we [...] Encounter Status:Closed by ABRAHAM PACHECO on 10/05/21 [facility] CNPPriya 07-29-2021 CNPN Telephone (GENBMI) -------- ASA THOMPSON ([id number]) 1970 F Date Time Provider Department 07/29/21 [facility] your visit today, we recorded [...] Assessed Reason for Visit: BMI Follow Up [2836] Prescriptions as of 07/29/2021 - blood sugar [...] Encounter Status:Closed by ABRAHAM PACHECO on 07/29/21 [facility] ASA [facility] ([id number]) 1970 F Date Time Provider Department 07/14/21 ABRAHAM PACHECO During your visit today, we recorded the following information about you: Abraham Pacheco RN 07/14/2021 3:04 PM Addendum Follow up call placed to patient, no answer phone; left voice message with my call back phone number. [phone] Cancelled surgery scheduled for 07/15/21. No call [...] Encounter Status:Closed by ABRAHAM PACHECO on 07/14/21 Normal [facility] CNPN Telephone ([facility]) -------- ASA THOMPSON ([id number]) 1970 F Date Time Provider Department 07/14/21 JEANNINE TAMEZ [facility] During your visit today, we recorded the following information about you: Jeannine Tamez, PhD 07/14/2021 1:02 PM Signed [facility] Attempted to contact [...] Encounter Status:Closed by JEANNINE TAMEZ on 07/14/21 [facility] Gracie 07-13-2021 CNPN Telephone (GENBMI) -------- ASA THOMPSON ([id number]) 1970 F Date Time Provider Department 07/13/21 [...] Encounter Status:Closed by ABRAHAM PACHECO on 07/13/21 [facility] -------- ASA THOMPSON ([id number]) 1970 F Date Time Provider Department 07/08/21 ABRAHAM PACHECO During your visit today, we [...] protein shakes. Patient reports has not read [employer] message from Nutrition but will do so [...] 06/21/2021 Encounter Status:Closed by [facility] ASA THOMPSON ([id number]) 1970 F Date Time Provider Department 07/08/21 RAEANNLEONARDAABRAHAM During your visit today, we recorded the [...] Encounter Status:Closed by ABRAHAM PACHECO on 07/08/21 Normal [facility] Gracie 07-07-2021 CNPN Telephone (GENBMI) -------- ASA THOMPSON ([id number]) 1970 F Date Time Provider Department 07/07/21 ABRAHAM PACHECO GENBMI During your visit today, [...] Encounter Status:Closed by ABRAHAM PACHECO on 07/07/21 [facility] ASA THOMPSON ([id number]) 1970 F Date Time Provider Department [facility]05[facility] your visit today, we recorded [...] Encounter Status:Closed by ABRAHAM PACHECO on 07/06/21 [facility] Gracie 06-21-2021 CNPN Telephone (GENBMI) -------- ASA THOMPSON ([id number]) 1970 F Date Time Provider Department 06/21/21 ABRAHAM PACHECO [...] arrival time. Other Instructions Reviewed: Gave patient [phone] My Chart Support line phone number Skin [...] you may take two Extra Strength Tylenol. Abraham Pacheco RN Allergies As of Date: 06/21/2021 [...] daily. - (more content not included)... Normal [facility] 05-25-2021 CNPN Telephone (GENBMI) -------- ASA THOMPSON ([id number]) 1970 F Date Time Provider Department 05/25/21 ABRAHAM PACHECO During your visit today, we recorded the following information about you: Abraham Pacheco RN 05/25/2021 4:23 PM Signed [facility] COORDINATION SURGERY APPROVAL CALL Received e-mail confirmation of insurance approval for bariatric surgery.Pre-operative call placed to the patient, this RN spoke with patient and agreed upon a surgery date of July 15 2021. Surgical episode request sent to [facility] surgery scheduling. -Patient instructed to start pre-op [...] instructed to fax FMLA forms to medical cash poster and allow 7-10 days for completion. Radha [...] Status:Closed by ABRAHAM PACHECO on 05/25/21 Normal [facility] CNCOon 04-26-2021 CNCO Letter Text Normal [facility] CNCOon 04-21-2021 CNCO Letter Text Normal [facility] CNCOon 04-12-2021 CNCO Letter Text Normal [facility] Social History Date Type Detail Facility Start: 07-08-2022 End: 07-25-2022 Exposure to SARS-CoV-2 (event) Not sure [facility] Start: 1970 Sex Assigned At Female F [facility] Start: 1970 Sex Assigned At Not on file [facility] [employer] Phone: Tobacco smoking status MIIS Unknown if ever smoked [facility] Tobacco smoking status [facility] Tobacco smoking consumption unknown [facility] [employer] Phone: Sex Assigned At Sex Assigned At Bir [facility] Other Vital Signs Date Time Vital Sign Value Performing Clinician Facility 12-27-2022 15:00-0500 Body height 160.02 cm Aime Capone Other [facility] Other 12-27-2022 15:00-0500 Body mass index (BMI) [Ratio] 44.63 kg/m2 Aime Capone Other [facility] Other 12-27-2022 15:00-0500 Body weight 114.31 kg Aime Capone Other [facility] Other 12-27-2022 15:00-0500 Diastolic blood pressure 61 mm[Hg] Aime Capone Other [facility] Other 12-27-2022 15:00-0500 Respiratory rate 18 /min Aime Capone Other [facility] Other 12-27-2022 15:00-0500 SaO2% (BldA) [Mass fraction] 97 % Aime Capone Other [facility] Other 12-27-2022 15:00-0500 Systolic blood pressure 127 mm[Hg] Aime Capone Other [facility] Other 07-26-2022 10:45-0400 Body temperature 98.2 [degF] Bishnu Horner MD Work Phone: [employer] 07-26-2022 10:45-0400 Diastolic blood pressure 65 mm[Hg] Bishnu Horner MD Work Phone: [employer] 07-26-2022 10:45-0400 Heart rate 84 /min Bishnu Horner MD Work Phone: [employer] 07-26-2022 10:45-0400 Respiratory rate 16 /min Bishnu Horner MD Work Phone: [employer] 07-26-2022 10:45-0400 SaO2% (BldA) [Mass fraction] 98 % Bishnu Horner MD Work Phone: [employer] 07-26-2022 10:45-0400 Systolic blood pressure 161 mm[Hg] Bishnu Horner MD Work Phone: [employer] 07-25-2022 18:02-0400 Body height 165.1 cm Bishnu Horner MD Work Phone: [employer] 07-25-2022 18:02-0400 Body mass index (BMI) [Ratio] 39.94 kg/m2 Bishnu Horner MD Work Phone: [employer] 07-25-2022 18:02-0400 Body weight 108.86 kg Bishnu Horner MD Work Phone: [facility] 07-22-2022 11:28-0400 Body temperature 98.2 [degF] [facility] 07-22-2022 11:28-0400 Diastolic blood pressure 72 mm[Hg] [facility] 07-22-2022 11:28-0400 Heart rate 92 /min [facility] 07-22-2022 11:28-0400 Respiratory rate 12 /min [facility] 07-22-2022 11:28-0400 SaO2% (BldA) [Mass fraction] 96 % [facility]ime [facility] 07-22-2022 11:28-0400 Systolic blood pressure 155 mm[Hg] [facility]ime [facility] 07-18-2022 20:54-0400 Body height 165.1 cm [facility] 07-18-2022 20:54-0400 Body mass index (BMI) [Ratio] 42.56 kg/m2 [facility]ime Bird [facility] 07-18-2022 20:54-0400 Body weight 116 kg [facility] Clinical Notes 03-31-2021 to 12-27-2022 Note Date [...] pyonephritis. 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) [...] home and to follow a low-salt diet [facility] Other 01-06-2023 Note Attestation signed by Castillo [...] of left kidney CVA (cerebral vascular accident) ([facility]) 2021 hisotry of blood clot 5 yrs ago Diabetes mellitus ([facility]) Kidney stone Past Surgical History: Procedure Laterality [...] Otherwise FU in 3 mo with BELÉN Delacruz Referral to nephrology as well Kash Clay MD [id number] Note Attestation signed by Castillo Almeida MD [...] BP Temp Temp src Pulse Resp SpO2 10/27/2210 -- -- -- 86 (!) 8 93 % 10/27/22 08 121/64 -- -- 84 10 93 % 10/27/22 0750 -- -- -- 88 12 93 % 10/27/22 0740 -- -- -- 88 14 94 % 10/27/22 0730 -- -- -- 87 12 93 % 10/27/22 0720 -- -- -- 89 12 93 % 10/27/22 0710 -- -- -- 91 13 91 % 10/27/22 0700 119/55 -- -- 88 19 95 % [...] nephrectomy Good UOP Ab (more content not included)...[facility]12-21-2022 NotePatient: Asa Thompson Vitals Value Taken Time BP 145/82 10/26/22 1756 Temp 36.1 10/26/221953 Pulse 105 10/26/22 1815 Resp 16 10/26/221814 SpO2 93 % 10/26/221814 Vitals shown include unvalidated device data. Post-Anesthesia [...] anesthesia complications: Patient has no apparent anesthesia complicationsUnLicking Memorial Hospital12-21-2022 NotePatient: Asa Thompson Procedure Summary Date: 10/26/22 Room / Location: [facility] OPERATING ROOM 13 / [facility] Operating Room Anesthesia Start: 838 Anesthesia Stop: 1421 Procedure: NEPHRECTOMY, ROBOT-ASSISTED (Left) Diagnosis: Atrophic kidney (Atrophic kidney [N26.1]) Surgeons: Castillo Almeida MD Responsible Provider: Juan Luis Kaba MD Anesthesia Type: Not recorded ASA Status: Not recorded Anesthesia Type: No value filed. Vitals Value Taken Time BP 145/82 10/26/22 1756 Temp 36.7 10/26/221758 Pulse 103 10/26/22 1759 Resp 17 10/26/221758 SpO2 93 % 10/26/221758 Vitals shown include [...] Comments: Answers questions appropriately No notable events documented.[facility]12-21-2022 Note Patient: Asa Thompson Procedure Information Anesthesia Start Date/Time: 10/26/22 0839 Procedure: NEPHRECTOMY, ROBOT-ASSISTED (Left) Location: [facility] OPERATING ROOM 13 / [facility] Operating Room Surgeons: Castillo Almeida MD Relevant Problems Anesthesia (-) History of anesthesia complications Cardio (+) HTN (hypertension) /Renal (+) Atrophic kidney (+) 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 Plan discussed with CAA. [facility] Note Peripheral Block Patient location during procedure: OR Start time: 10/26/2022 2:00 PM End time: 10/26/2022 2:06 PM Reason for block: at surgeon's request and post-op pain management Staffing Performed: resident/PERSONNEL PLACEMENT SPECIALIST/CAA Anesthesiologist: Juan Luis Kaba MD Resident/PERSONNEL PLACEMENT SPECIALIST: Binu Calles MD Preanesthetic Checklist Completed: patient identified, IV checked, site marked, risks and benefits discussed, surgical consent, monitors and equipment checked, pre-op evaluation and timeout performed Peripheral Block Patient position: supine Prep: ChloraPrep Patient monitoring: transportation worker and continuous pulse ox Block type: other [...] Heart rate change: no Slow fractionated injection: [facility]12-21-2022 NotePeripheral Block Patient location during procedure: post-op Start time: 10/26/2022 1:52 PM End time: 10/26/2022 2:00 PM Reason for block: at surgeon's request and post-op pain management Staffing Performed: resident/PERSONNEL PLACEMENT SPECIALIST/MICHELLE Anesthesiologist: Juan Luis Kaba MD Resident/PERSONNEL PLACEMENT SPECIALIST: Binu Calles MD Preanesthetic Checklist Completed: patient identified, IV checked, site marked, risks and benefits discussed, surgical consent, monitors and equipment checked, pre-op evaluation and timeout performed Peripheral Block Patient position: supine Prep: ChloraPrep Patient monitoring: heart rate, continuous pulse ox and transportation worker Block type: other (see comment) (TAP) Laterality: [...] Heart rate change: no Slow fractionated injection: [facility]12-21-2022 NoteAirway Date/Time: 10/26/2022 8:48 AM Urgency: elective Airway not difficult General Information and Staff Patient location during procedure: OR Anesthesiologist: Juan Luis Kaba MD Resident/PERSONNEL PLACEMENT SPECIALIST/CAA: MICHELLE Gomes Performed: other anesthesia staff Learner [...] approach: 1 Number of other approaches attempted: [facility] 10-26-2022 NoteArterial Line: Date/Time: 10/26/2022 8:25 AM [...] midazolam (VERSED) IV, 2 mg Staffing Performed: resident/PERSONNEL PLACEMENT SPECIALIST/CAA Anesthesiologist: Juan Luis Kaba MD Resident/PERSONNEL PLACEMENT SPECIALIST: Aleah Cantrell [facility]DM[facility] 10-13-2022 NoteSubjective: Chief complaint: This patient is [...] neurology has not been received, will have crusher dry ground mica re-request. Patient denies fever, chills, nausea, vomiting, [...] weeks ago Context/Modifying Factors: Was admitted to [facility] with urosepsis Associated signs and symptoms: Currently denies fevers or chills but does have associated left flank pain from the nephroureteral catheter The patient is a 51-year-old female with diabetes who was recently admitted to [facility] with urosepsis. A CT scan and renal ultrasound demonstrated a left staghorn renal calculus. The repo (more content not included)...[facility]11-22-2022 NoteSubjective: Chief complaint: This patient is [...] weeks ago Context/Modifying Factors: Was admitted to [facility] with urosepsis Associated signs and symptoms: Currently denies fevers or chills but does have associated left flank pain from the nephroureteral catheter The patient is a 51-year-old female with diabetes who was recently admitted to [facility] with urosepsis. A CT scan and [...] preserve her left renal (more content not included)...[facility]10-13-2022 NoteSubjective Patient ID: Asa Thompson is [...] nursing note reviewed. Exam conducted with a cable lacer present. Constitutional: Appearance: Normal appearance. She is [...] worsen. Plan for left total robotic assisted nephrectomy.[facility]10-12-2022 NoteChief complaint: Left staghorn kidney stone History of Present Illness: Location: Left kidney Duration: Was diagnosed a few weeks ago Context/Modifying Factors: Was admitted to [facility] with urosepsis Associated signs and symptoms: [...] with diabetes who was recently admitted to [facility] with urosepsis. A CT scan and [...] for further discussion regarding PCNL versus left nephrectomy.[facility]09-20-2022 NotePROCEDURE: MARTINE LILLY NEPHROSTMY CATH PROC 07/26/2022 HISTORY: ORDERING SYSTEM [...] detailed explanation of the procedure including risks. [place] protocol was observed. Sterile gowns, masks, hats and gloves utilized for maximal sterile barrier. The patient was placed in the prone position on the fluoroscopy table, and the existing left nephroureteral stent and flank were prepped and draped in sterile manner. The stent tubing was noted to be broken with the lumen exposed near the level of the skin. A geological scout image demonstrated the distal loop approximating the [...] wire. Under fluoroscopic guidance, a new 8 Belarusian x 22 cm nephroureteral stent was advanced over the wire; the distal loop formed in the bladder, but the proximal loop did not form in the renal pelvis. Therefore, this catheter was removed over wire, and a new 8 Belarusian x 24 cm nephroureteral stent was advanced [...] Signed by: Bishnu Alan MD 07/26/22 Final resultMerOroville [facility]09-20-2022 NotePROCEDURE: IR CHG NEPHROSTMY CATH PROC [...] detailed explanation of the procedure including risks. [place] protocol was observed. Sterile gowns, masks, hats and gloves utilized for maximal sterile barrier. The patient was placed in the prone position on the fluoroscopy table, and the existing left nephroureteral stent and flank were prepped and draped in sterile manner. The stent tubing was noted to be broken with the lumen exposed near the level of the skin. A geological scout image demonstrated the distal loop approximating the [...] wire. Under fluoroscopic guidance, a new 8 Belarusian x 22 cm nephroureteral stent was advanced over the wire; the distal loop formed in the bladder, but the proximal loop did not form in the renal pelvis. Therefore, this catheter was removed over wire, and a new 8 Belarusian x 24 cm nephroureteral stent was advanced over the wire. The distal loop formed in the expected position of the bladder, and the proximal loop partially formed in the renal pelvis. Contrast injection confirmed appropriate positioning. The stent was then attached to the skin with a 2-0 monofilament suture. The patient tolerated the procedure well. COMPLICATIONS: None immediately apparent MHPN RIS [id number] History of Present illness Narrative* Paloma Arceo MD - 07/26/2022 1:42 PM EDT [facility] CDU / OBSERVATION ENCOUNTER ATTENDING NOTE I performed a history and physical examination of the patient and discussed management with the resident or midlevel provider. I reviewed the resident or midlevel provider's note and agree with the documented findings and plan of care. Any areas of disagreement are noted on the chart. I was personally present for the tervizo portions of any procedures. I have documented [...] going to IR this morning for replacement. [place] observation unit for nephrostomy tube placement. Patient reassessed on arrival to the floor. Paloma Arceo MD Attending Emergency Physician * Song Sharif - 07/26/2022 12:50 AM EDT [facility] DEPARTMENT - [facility] PROGRESS NOTE Shift date: 9.19.2022 Shift day: Monday Shift # 2 Room # 10/17 Name: Asa Thompson Mandaen: unknown Place of adventist: unknown Referral: Routine Visit Admit Date & Time: 07/25/2022 5:43 PM Assessment: Asa Thompson is a 51 y.o. female in the hospital with pain. Upon entering the room mortgage underwriter observes patient in pain and states that she is looking for a nurse to provide pain management. Patient appears to be coping otherwise. 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 Outcome: Patient requests nursing assistance for pain. Making Line Worker attempted to follow up with nursing staff. Plan: Chaplains will remain available to offer spiritual and emotional support as needed. . Spiritual Care Department [facility] [phone] 07/25/22 2310 Encounter Summary Service Provided For: Patient Referral/Consult From: [facility] Family members Last Encounter 07/25/22 Complexity of Encounter Moderate Begin Time 2310 End Time 2325 Total Time Calculated 15 min Encounter Type Initial Screen/Assessment Assessment/Intervention/Outcome Assessment Compromised coping Intervention Active listening;Discussed illness injury and it s impact;Explored/Affirmed feelings, thoughts, concerns Outcome Expressed feelings, needs, and concerns;Venting emotion documented in [facility] Work Phone: [phone]) 234-578309-16-2022 History of Present illness Narrative* Christine Campa RN - 07/22/2022 4:32 PM EDT [employer] went over all discharge paperwork with patient and Shaq bedside. Patient denies any further questions or concerns at this time. Patient also has a BMP script to get done within 1 week and have results sent to PCP. [employer] also called [facility] pharmacy in [place] and verified E-prescriptions were sent. Patient also has all personal belongings on discharge as well * Emelia Kumar - 07/22/2022 4:26 PM EDT CLINICAL PHARMACY NOTE: MEDS TO BEDS Total # of Prescriptions Filled: 3 The following medications were delivered to the patient: Furosemide 20mg Ciprofloxacin 500mg Hydralazine 25mg Additional Documentation: delivered to patient in room 541 07/22 at 3:33pm. Co- pay $16.50 clover. * Christine Campa RN - 07/22/2022 3:47 PM EDT [employer] was unable to set up follow up appointment for Dr. Chino Dempsey (urologist) on discharge d/tthe office being closed. [employer] explained to the patient that she will [...] Date/Time NITRU NEGATIVE 07/20/2022 03:05 PM COLORU Mchenry 07/20/2022 03:05 PM PHUR 5.0 07/20/2022 03:05 [...] as outpatient as well, patient lives near [facility] and will likely ask her PCP to get nephrological referral otherwise if she wants she can follow-up in the clinic with us as well. She should get BMP results done in 1 week and results faxed to PCP. Nutrition Please ensure that patient is on a renal diet/TF. Avoid nephrotoxic drugs/contrast exposure. Shahid Galindo MD [facility] This note is created with the assistance of a speech-recognition program. While intending to generate a document that actually reflects the content of the visit, no guarantees can be provided that every mistake has been identified and corrected by editing. * Urban Noriega MD - 07/22/2022 10:27 AM EDT Images from the original note were not included. [facility] - Progress Note Today's Date and Time: [...] urine cultures: No growth Urine culture from [place]: E coli, multi-sensitive Patient will need treatment [...] lithotripsy in the future. Infection Control Recommendations [place] Precautions Antimicrobial Stewardship Recommendations Simplification of therapy [...] is a 51-year-old female who presents to [facility] with a chief complaint of left flank pain that started at 4 AM on 07/18/2022. Patient states that the pain is intense and is radiating towards her left groin. Patient denies any fever, burning urination, urgency frequency, vomiting, loose stool, any shortness of breath or chest discomfort. Patient went to [place] and had a CT imaging done. 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 Urinalysis positive for leukocytes and nitrates and blood. White blood cell count 13.7 and creatinine of 1.45. Patient needed urology evaluation and nephrostomy tube placement . She was transferred to [facility]. Urology was consulted. Urology plan for IR [...] Blood and urine cultures: No growth at [facility] Urine culture at [place] with E coli Patient reports tolerating Cipro [...] Cultures: Urine: 07-18-22: E coli- Multi-sensitive at [place] 07/18/2022: No growth 07/19/2022: Urinalysis: Turbid, glucose [...] NEPHROSTOMY PERCUTANEOUS LEFT 07/19/2022 Noman Mullen MD [facility] SPECIAL PROCEDURES Medications: hydrALAZINE 25 mg Oral [...] pain or palpitations.No shortness of breath. No EY Lung: No shortness of breath or cough. [...] BP Temp Temp src Pulse Resp SpO2 07/22/2213 -- (P) 97.8 F (36.6 C) -- [...] the procedure including risks, benefits, and alternatives. [place] protocol was followed. The patient's flank was [...] into the urinary bladder using a 4 Belarusian Kumpe the catheter; the Glidewire was exchanged [...] puncture of the lower pole calyx, 4 Belarusian Kumpe the catheter manipulation and glidewire extension into the urinary bladder. Subsequent images show the nephroureteral stent in satisfactory position. Impression Successful percutaneous left nephroureteral stent placement via lower pole, past a large staghorn calculus, with distal pigtail tip position in the urinary bladder, as above. Findings were discussed with KASH CLAY at 4:09 pm on 07/19/2022. Medical Decision Fywsqi-Etmkmngu-Fwyye: Medical Decision Making-Other: Note: Labs, medications, radiologic studies were reviewed with personal review of films Large amounts of data were reviewed Discussed with nursing Staff, emergency planner Infection Control and Prevention measures reviewed All prior entries were reviewed Administer medications as ordered Prognosis: Good Discharge planning reviewed Follow up as outpatient. Thank you for allowing us to participate in the care of this patient. Please call with questions. Urban Noriega MD * Keo Guevara MD - 07/22/2022 7:45 AM EDT Physician Progress Note PATIENT: ASA [facility]PS[facility] #: [id number] : 1970 ADMIT DATE: 07/18/2022 3:19 PM [...] Thank you, Judith LUNA,RN, CDI email - [email or web address] [phone] office hours [id number] Options provided: -- Sepsis, [...] from the original note were not included. [facility] Internal Medicine Teaching Residency Program Inpatient Daily Progress Note Patient: Asa Thompson Date of : 1970 Acct: [id number] Room: [address] [place] [address]- Admit date: 07/18/2022 Today's date: 07/22/22 Number [...] positive for E. Coli- multi sensitive at [place] Lactic acid-1.5-2.3 Urology on board-okay to be [...] breath or chest discomfort. Patient went to [place] and CT imaging showed partially obstructing large staghorn calcification in left renal pelvis and perinephric edema-small amount of air and gas concerning for pyelonephritis.UA positive for leukocytes and nitrites with blood.WBC count 13.7 and creatinine of 1.45. Patient needed urology evaluation and nephrostomy tube placement so transferred to the [facility]. Urology consulted plan for IR tomorrow. patient [...] Keo Guevara MD Internal Medicine Resident, PGY-1 [facility]; [place], [place] 07/22/2022, 7:44 AM Associated attestation - Livia Cantrell MD - 07/22/2022 2:02 PM EDT Attending Physician Statement I have discussed the case of Asa Thompson, including pertinent history and exam findings with the resident/fellow/medical student/GRADUATE STUDENT/PA. I have seen and examined the patient and the trevizo elementsof the encounter have been performed by me. I agree with the assessment, plan and orders as documented by the resident/fellow/medical student/GRADUATE STUDENT/PA With changes made to the note as [...] been improving Microbiologic data remains negative at [facility] Percutaneous nephrostomy tube is draining Discharge planning in progress Livia Cantrell MD 07/22/2022 2:01 PM * TERRY BERGMAN - 07/21/2022 11:50 PM EDT Notified resident at 2345 of patient having increased stools. Requested probiotic to prevent cdiff and also to adjust amount of labs being drawn, awaiting response. * Latoya Chatterjee RN - 07/21/2022 3:44 PM EDT Fax received from [place], patient's urine culture is positive for e-coli. [...] Date/Time NITRU NEGATIVE 07/20/2022 03:05 PM COLORU Mchenry 07/20/2022 03:05 PM PHUR 5.0 07/20/2022 03:05 [...] 07/21/2022 1:36 PM EDT Physical Therapy Facility/Department: [address] [place] Physical Therapy Initial Assessment Name: [...] pt reports her is available to provide 24/7 support. Therapy Prognosis: Good Decision Making: Low [...] Ambulation Assistance: Independent Transfer Assistance: Independent Active Sprayer Hand: Yes Mode of Transportation: SUV Occupation: Unemployed Leisure & Hobbies: Everything -staying busy Additional Comments: 24/7 support if needed upon discharge by . [...] Mobility Inpatient CMS G-Code Modifier : CK (07/21/22 1335) Goals Short Term Goals Time Frame for [...] talk with patient and family. * Luisa Oquendo OT - 07/21/2022 12:07 PM EDT Occupational Therapy Facility/Department: [address] [facility] Occupational Therapy Initial Assessment Name: Asa Thompson [...] Ambulation Assistance: Independent Transfer Assistance: Independent Active Sprayer Hand: Yes Mode of Transportation: SUV Occupation: Unemployed Leisure & Hobbies: Everything -staying [...] (degrees) Right Hand AROM: WFL AM-PAC Score AM-PAC Inpatient Daily Activity Raw Score: 24 (07/21/22 1208) AM-PAC Inpatient ADL T-Scale Score : 57.54 (07/21/22 1208) ADL Inpatient CMS 0-100% Score: 0 (07/21/22 1208) ADL Inpatient CMS G-Code Modifier : CH (07/21/22 120) Therapy Time Individual Concurrent Group Co-treatment Time In 928 Time Out 957 Minutes 29 Timed Code Treatment Minutes: 9 Minutes Luisa Oquendo OTR/L * Urban Noriega MD - 07/21/2022 11:44 AM EDT Images from the original note were not included. [facility] - Progress Note Today's Date and Time: [...] up to a week. Infection Control Recommendations [place] Precautions Antimicrobial Stewardship Recommendations Simplification of therapy [...] is a 51-year-old female who presents to [facility] with a chief complaint of left flank pain that started at 4 AM on 07/18/2022. Patient states that the pain is intense and is radiating towards her left groin. Patient denies any fever, burning urination, urgency frequency, vomiting, loose stool, any shortness of breath or chest discomfort. Patient went to [place] and had a CT imaging done. 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 Urinalysis positive for leukocytes and nitrates and blood. White blood cell count 13.7 and creatinine of 1.45. Patient needed urology evaluation and nephrostomy tube placement . She was transferred to [facility]. Urology was consulted. Urology plan for IR [...] Noman Mullen MD [facility] SPECIAL PROCEDURES Medications: insulin lispro 0-16 Units [...] OMAR TECHNOLOGIST PROVIDED HISTORY: Bilateral Renal Ultrasound OMRA 51-year-old female with acute kidney injury FINDINGS: [...] SEDATION 07/19/2022 HISTORY: ORDERING SYSTEM [facility] TE[facility] PROVIDED HISTORY: staghorn Is the patient [...] the procedure including risks, benefits, and alternatives. [place] protocol was followed. The patient's flank was [...] into the urinary bladder using a 4 Belarusian Kumpe the catheter; the Glidewire was exchanged [...] puncture of the lower pole calyx, 4 Belarusian Kumpe the catheter manipulation and glidewire extension into the urinary bladder. Subsequent images show the nephroureteral stent in satisfactory position. Impression Successful percutaneous left nephroureteral stent placement via lower pole, past a large staghorn calculus, with distal pigtail tip position in the urinary bladder, as above. Findings were discussed with KASH CLAY at 4:09 pm on 07/19/2022. Medical Decision Xvcbru-Jvtgxigf-Homet: Medical Decision Making-Other: Note: Labs, medications, radiologic studies were reviewed with personal review of films Large amounts of data were reviewed Discussed with nursing Staff, emergency planner Infection Control and Prevention measures reviewed All prior entries were reviewed Administer medications as ordered Prognosis: Good Discharge planning reviewed Follow up as outpatient. Thank you for allowing us to participate in the care of this patient. Please call with questions. Urban Noriega MD * Phillip Garrett MD - 07/21/2022 8:22 AM EDT Images from the original note were not included. [facility] Internal Medicine Teaching Residency Program Inpatient Daily Progress Note Patient: Asa Thompson Date of : 1970 Acct: [id number] Room: 0541/0541-01 Admit date: 07/18/2022 Today's date: 07/21/22 Number [...] breath or chest discomfort. Patient went to [place] and CT imaging showed partially obstructing large staghorn calcification in left renal pelvis and perinephric edema-small amount of air and gas concerning for pyelonephritis.UA positive for leukocytes and nitrites with blood.WBC count 13.7 and creatinine of 1.45. Patient needed urology evaluation and nephrostomy tube placement so transferred to the [facility]. Urology consulted plan for IR tomorrow. patient [...] time PT/OT/SW-consulted we will follow-up Discharge Planning: direct mail manager consulted Phillip Garrett MD Internal Medicine Resident, PGY-1 [facility]; [place], [place] 07/21/2022, 8:22 AM Associated attestation - Livia Cantrell MD - 07/21/2022 8:43 PM EDT Attending Physician Statement I have discussed the case of Asa Thompson, including pertinent history and exam findings with the resident/fellow/medical student/GRADUATE STUDENT/PA. I have seen and examined the patient and the trevizo elementsof the encounter have been performed by me. I agree with the assessment, plan and orders as documented by the resident/fellow/medical student/GRADUATE STUDENT/PA With changes made to the note as [...] 11:26 PM EDT SPIRITUAL CARE DEPARTMENT - [facility] PROGRESS NOTE Shift date: 07/20/22 Shift day: Monday Shift # 2 Room # 0541/0541-01 Name: Asa Thompson Mandaen: Place of adventist: Referral: Routine Visit Admit Date & Time: 07/18/2022 3:19 PM Assessment: Asa Thompson is a 51 y.o. 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 Patient did not appear to mind boiler room helper presence. [employer]ocker [employer] Forms offered space for patient to express feelings, needs, and concerns and provided a ministry presence. Patient appeared to be resting and coping. Outcome: While gonzález/spirituality were not discussed, patient appeared receptive to boiler room helper presence.3 Plan: Chaplains will remain available to offer spiritual and emotional support as needed. . Spiritual Care Department [facility] [phone] * TERRY BERGMAN - 07/20/2022 9:30 PM EDT Orders received for patients high BP * TERRY BERGMAN - 07/20/2022 9:08 PM EDT Notified data power consultant resident for internal medicine of patients current vital signs, sepsis alert BPA, neuro status and labs. * Ligia Mattson RN - 07/20/2022 4:00 PM EDT Patient complain of 10 out of 10 pain despite PRN pain meds given see JAN. Pt temp trending up despite PRN tylenol, cold was rags and ice packs see JAN Pt became oriented to person but disoriented to time and situation MD notified. Pt transferred to for closer monitoring. Ligia Mattson RN * Keo Guevara MD - 07/20/2022 8:06 AM EDT Images from the original note were not included. [facility] Internal Medicine Teaching Residency Program Inpatient Daily Progress Note Patient: Asa Thompson Date of : 1970 Acct: [id number] Room: Admit date: 07/18/2022 Today's date: 07/20/22 Number of days in the hospital: 2 SUBJECTIVE Admitting Diagnosis: Calculous pyelonephritis CC: Left flank pain Pt examined at bedside. Chart & results reviewed. No acute event overnight Patient remained afebrile hemodynamically stable Pain better controlled with pain meds IR guided left percutaneous nephrostomy tube placement yesterday evening-output 500 so far WBC-12.3-7.1-10.2 Creatinine 1.65-1.71-2.11 [id number]-corrected sodium 133 Lactic acid-3.8 Glucose-416 ROS: Constitutional: [...] breath or chest discomfort. Patient went to [place] and CT imaging showed partially obstructing large staghorn calcification in left renal pelvis and perinephric edema-small amount of air and gas concerning for pyelonephritis.UA positive for leukocytes and nitrites with blood.WBC count 13.7 and creatinine of 1.45. Patient needed urology evaluation and nephrostomy tube placement so transferred to the [facility]. Urology consulted plan for IR tomorrow. patient [...] PRN Diagnostic Labs: CBC: Recent Labs 07/19/22 0621 07/20/22 0148 07/20/22 0426 WBC 7.1 12.3* 10.2 RBC 3.50* 3.62* 3.74* HGB 10.4* 10.6* 11.0* HCT 30.2* 31.3* 32.4* MCV 86.3 86.5 86.6 RDW 13.6 13.5 13.6 PLT 410 280 252 BMP: Recent Labs 07/19/22 0621 07/20/22 0148 07/20/22 [...] time PT/OT/SW-consulted we will follow-up Discharge Planning: direct mail manager consulted Keo Guevara MD Internal Medicine Resident, PGY-1 [facility]; [place], [place] 07/20/2022, 8:06 AM Associated attestation - Livia Cantrell MD - 07/20/2022 7:52 PM EDT Attending Physician Statement I have discussed the case of Asa Thompson, including pertinent history and exam findings with the resident/fellow/medical student/GRADUATE STUDENT/PA. I have seen and examined the patient and the trevizo elementsof the encounter have been performed by me. I agree with the assessment, plan and orders as documented by the resident/fellow/medical student/GRADUATE STUDENT/PA With changes made to the note as [...] Cantrell MD 07/20/2022 7:50 PM * Christi Chance DO - 07/20/2022 7:25 AM EDT Images from the original note were not included. Ke Bonilla Santacroce, Khan, Mostafa, Kosta, Priya Jr Urology Progress Note Subjective: Nothing acute [...] C) Oral (!) 110 14 97 % 07/19/22 2326 117/66 98.2 F (36.8 C) Oral (!) 112 14 95 % 07/19/22 2145 115/76 98.1 F (36.7 C) Oral (!) 122 12 93 % 07/19/227 -- -- -- -- 16 -- 07/19/22 2107 -- -- -- -- 12 -- 07/19/22 [...] ml Net 40.64 ml Recent Labs 07/19/22 0607/20/22 0148 07/20/22 0426 WBC 7.1 12.3* 10.2 HGB 10.4* 10.6* 11.0* HCT 30.2* 31.3* 32.4* MCV 86.3 86.5 86.6 PLT 410 280 252 Recent Labs 07/19/22 0607/20/22 0148 07/20/22 0426 NA 131* 128* 128* [...] cysto, URS, HLL 7 years prior in [place], [place] with Dr. Harrison Recurrent UTIs, 4 [...] score is now 5.12. Per sepsis protocol, mortgage underwriter ordered lactic and blood cultures. Provider notified. * Alexsandra Mckinley RN - 07/20/2022 3:13 AM EDT [employer] notified provider of infection concerns. Patient's WBC [...] bedside and is not concerned. * Nasreen Dean PT - 07/19/2022 11:10 AM EDT Images [...] original note were not included. Occupational Therapy [facility] Occupational Therapy Not Seen Note DATE: [...] original note were not included. Ke Bonilla, Charlie Waters Mostafa, Buck, Murtagh Jr Urology Progress Note Subjective: Nothing acute [...] -- -- -- 20 -- -- -- 07/18/222201 -- -- -- -- 16 -- -- -- 07/18/222131 -- -- -- -- 20 -- -- [...] cysto, URS, HLL 7 years prior in [place], [place] with Dr. Harrison Recurrent UTIs, 4 [...] from the original note were not included. [facility] Internal Medicine Teaching Residency Program Inpatient Daily Progress Note Patient: Asa Thompson Date of : 1970 Acct: [id number] Room: [facility]/0512- Admit date: 07/18/2022 Today's date: 07/19/22 Number [...] breath or chest discomfort. Patient went to [place] and CT imaging showed partially obstructing large staghorn calcification in left renal pelvis and perinephric edema-small amount of air and gas concerning for pyelonephritis.UA positive for leukocytes and nitrites with blood.WBC count 13.7 and creatinine of 1.45. Patient needed urology evaluation and nephrostomy tube placement so transferred to the [facility]. Urology consulted plan for IR tomorrow. patient [...] time PT/OT/SW-consulted we will follow-up Discharge Planning: direct mail manager consulted Keo Guevara MD Internal Medicine Resident, PGY-1 [facility]; [place], [place] 07/19/2022, 6:40 AM Associated attestation - Livia Cantrell MD - 07/19/2022 7:45 PM EDT Attending Physician Statement I have discussed the case of Asa Thompson, including pertinent history and exam findings with the resident/fellow/medical student/GRADUATE STUDENT/PA. I have seen and examined the patient and the trevizo elementsof the encounter have been performed by me. I agree with the assessment, plan and orders as documented by the resident/fellow/medical student/GRADUATE STUDENT/PA With changes made to the note as [...] [N10] Calculous pyelonephritis [N20.0]. See H&P of admitting/purchasing internship resident for more details. Transferred from [facility] Patient came in due to [...] rectal palsy, headache, DM2, HTN, kidney stones 2016, depression, anxiety, HLD, hypothyroidism, bipolar disorder BMP: [...] Brooklynn Ferrari MD Department of Internal Medicine [facility], [place] 07/19/2022, 12:39 AM documented in this encounterBON [facility] [employer] Work Phone: 1(191) 939-519309-16-2022 Hospital Discharge instructions* Discharge Instructions* Keo Guevara MD - 07/22/2022 12:18 PM EDT You were admitted for staghorn renal calculi and your urine culture from [place] was positive for Ecoli. Please take ciprofloxacin [...] Primary Emergency Contact: arian thompson Relation: Child Gas Burner Operator needed? No Past Surgical History: Past Surgical History: Procedure Laterality Date IR NEPHROSTOMY PERCUTANEOUS LEFT 07/19/2022 IR NEPHROSTOMY PERCUTANEOUS LEFT 07/19/2022 Nmoan Mullen MD [facility] SPECIAL PROCEDURES Immunization History: There is no immunization history on file for this patient. Active Problems: Patient Active Problem List Diagnosis Code Calculous pyelonephritis N20.0 OMAR (acute kidney injury) ([facility]) N17.9 Type 2 diabetes mellitus, with long-term current use of insulin ([facility]) E11.9, Z79.4 Leukocytosis D72.829 Hypothyroidism E03.9 Depression F32.A Hypertension I10 History of coronary artery disease Z86.79 Acute pyelonephritis N10 Left renal atrophy N26.1 Kidney stone N20.0 Sepsis with acute renal failure without septic shock ([facility]) A41.9, R65.20, N17.9 History of penicillin allergy [...] MENTAL STATUS:} IV Access: { TIMO IV ACCESS:727538180} Nursing Mobility/ADLs: Walking {CHP DME ADLs:107929603} Transfer {CHP DME ADLs:561493778} Bathing {CHP DME ADLs:092096402} Dressing {CHP DME ADLs:613532230} Toileting {CHP DME ADLs:738460777} Feeding {CHP DME ADLs:637431921} Engineering Manager Electronics {CHP DME ADLs:924174681} Med Delivery { TIMO MED Delivery:469297135} Wound Care Documentation and Therapy: Elimination: Continence: Bowel: {YES / NO:} Bladder: {YES / NO:} Urinary Catheter: {Urinary Catheter:483562107} Colostomy/Ileostomy/Ileal Conduit: {YES / NO:} Date of Last BM: Intake/Output Summary (Last 24 hours) at 07/22/2022 1349 Last data filed at 07/22/2022 0813 Gross per 24 hour Intake 1594.2 ml Output 3875 ml Net -2280.8 ml I/O last 3 completed shifts: In: 4236.1 [P.O.:580; I.V.:3350.1; IV Piggyback:306] Out: 6520 [Urine:6520] Safety Concerns: { TIMO Safety Concerns:193612677} Impairments/Disabilities: { TIMO Impairments/Disabilities:470042784} Nutrition Therapy: Current Nutrition Therapy: { TIOM Diet List:311464808} Routes of Feeding: {CHP DME Other Feedings:078093243} Liquids: {Sketch Artist liquid thickness:87624} Daily Fluid Restriction: {CHP DME Yes amt example:407921499} Last Modified Barium Swallow with Video (Video Swallowing Test): {Done Not Done Date:} Treatments at the Time of Hospital Discharge: Respiratory Treatments: Oxygen Therapy: {Therapy; copd oxygen:61085} Ventilator: { CC Vent List:164354692} Rehab Therapies: {THERAPEUTIC INTERVENTION:1100264712} Weight Bearing Status/Restrictions: { CC Weight Bearin} Other Medical Equipment (for information only, NOT a DME order): {EQUIPMENT:841881427} Other Treatments: Patient's personal belongings (please select all that are sent with patient): {P DME Belongings:023189185} RN SIGNATURE: {Esignature:149359835} CASE MANAGEMENT/SOCIAL WORK SECTION Inpatient Status Date: Readmission Risk Assessment Score: Readmission Risk Risk of Unplanned Readmission: 19 Discharging to Facility/ Agency Name: Address: Phone: Fax: Dialysis Facility (if applicable) Name: Address: Dialysis Schedule: Phone: Fax: Sustainability Project Coordinator/Ice Guard Tester signature: {Esignature:618443567} PHYSICIAN SECTION Prognosis: {Prognosis:4521267582} Condition at Discharge: { Patient Condition:469291371} Rehab Potential (if transferring to Rehab): {Prognosis:1564209515} Recommended Labs or Other Treatments After Discharge: Physician Certification: I certify the above information and transfer of Asa Thompson is necessary for the continuing treatment of the diagnosis listed and that she requires {Admit to Appropriate Level of Care:52680} for {GREATER/LESS:028418106} 30 days. Update Admission H&P: {CHP DME Changes in HandP:986328101} PHYSICIAN SIGNATURE: {Esignature:228460184} documented in this encounterBON Web[employer] Phone: 1(135) 611-143309-13-2022 NotePROCEDURE: PERCUTANEOUS ANTEGRADE PYELOGRAM LEFT PERCUTANEOUS NEPHROURETERAL [...] the procedure including risks, benefits, and alternatives. [place] protocol was followed. The patient's flank was [...] into the urinary bladder using a 4 Belarusian Kumpe the catheter; the Glidewire was exchanged [...] puncture of the lower pole calyx, 4 Belarusian Kumpe the catheter manipulation and glidewire extension [...] Signed by: Noman Mullen MD 07/19/22 [facility]Mer[facility]09-[facility]-2022 NotePROCEDURE: PERCUTANEOUS ANTEGRADE PYELOGRAM LEFT PERCUTANEOUS NEPHROURETERAL [...] the procedure including risks, benefits, and alternatives. [place] protocol was followed. The patient's flank was [...] into the urinary bladder using a 4 Belarusian Kumpe the catheter; the Glidewire was exchanged [...] puncture of the lower pole calyx, 4 Bel[place]ian Kumpe the catheter manipulation and glidewire extension into the urinary bladder. Subsequent images show the nephroureteral stent in satisfactory position. [facility] RIS [id number] NoteHNO ID: [id number] Author: Liliana Avila, PhD Service: ? Author Type: Physician Type: Progress Notes Filed: 03/11/2022 3:32 PM Note Text: [facility] Progress Note 03/11/2022 Billing code: 74718/[place] 3:10PM - I called the patient to [...] her evaluation/medical records. Will send her a [employer] message with instructions. Liliana Avila, PhD Clinical Health PsychologistOhio[facility]01-20-2022 NoteHNO ID: [id number] Author: Jeannine Tamez, PhD Service: ? Author Type: Psychologist Type: Progress Notes Filed: 11/25/2021 8:38 AM Note Text: [facility] Patient no-showed appointment despite phone call and HIPAA compliant VM. Patient given instructions on rescheduling. Jeannine Tamez, PhD PsychologistOhiohealth Grady [facility]09-03-2021 NoteHNO ID: [id number] Author: Ghazal Doyle RD Service: ? Author [...] meal plan and stated understanding. Ghazal Doyle RDOhiohealth Grady [facility] Hospital08-31-2021 NoteHNO ID: [id number] Author: Ghazal Doyle RD Service: ? Author Type: Registered Dietitian Type: Progress Notes Filed: 07/06/2021 11:52 AM Note Text: Telephone call placed to patient at 11:49 AM at [phone]. Received forwarded My Chart message from Abraham Pacheco RN regarding hypoglycemia on liquid diet phase. No answer . Left message with contact telephone number [phone] and instructions to communicate with this provider via [employer] when able. Ghazal Doyle RDOhiohealth Grady [facility] Hospital08-16-2021 NoteHNO ID: [id number] Author: Quincy Rodriguez MD Service: ? Author Type: Physician Type: Progress Notes Filed: 06/21/2021 12:56 PM Note Text: Metabolic Surgery Postoperative Virtual Clinic Visit Name: Asa Thompson This visit was performed virtually via Zoom technology due to the COVID-19 epidemic as an effort to protect patients and minimize exposure.? Phone Visit I have discussed the nature of this visit with the patient which will occur via [employer] (Phone, Virtual Visit) and she agrees [...] complication, with long-term current use of insulin (HCC) Preoperative cardiovascular examination Resolved Hospital Problems No [...] AND Bariatric Surgery Fellow Bariatric AND Metabolic [place] [facility] STAFF NOTE I have seen and evaluated [...] and counseling and educating the patient/family/caregiver. Quincy Rodriguez, [facility]06-04-2021 NoteHNO ID: [id number] Author: Jeannine Tamez, PhD Service: ? Author Type: Psychologist Type: Progress Notes Filed: 04/09/2021 2:44 PM Note Text: [facility] Receipt of Outside Records Patient: Asa Thompson Date: 04/09/2021 Received records from patient's physician, Garry Ramos MD of [employer] (Address: [address] [place] [address]; ; ). Asa is off of all psychiatric meds and is stable for gastric bypass surgery. These records have been sent to scanning. Plan: *All requirements have been met Jeannine Tamez, PhD PsychologistOhiohealth [facility]ady [facility]05-26-2021 NoteHNO ID: [id number] Author: Ghazal Doyle RD Service: ? Author Type: Registered Dietitian Type: Progress Notes Filed: 03/31/2021 9:29 AM Note Text: [facility] Nutrition Therapy: Virtual Consult ? Re-assessment This visit was performed virtually due to the COVID-19 epidemic as an effort to protect patients and minimize exposure. Consent from patient received to conduct visit virtually. This Team Access Model visit is a virtual encounter. It required patient-provider interaction for the medical decision making as documented below. This visit completed via [employer] as Zoom did not connect PROGRESS: [...] - met 6. Start researching post-op vitamins: [employer], [employer], or company-specific websites- - met Pre-op goal weight:?238 lbs [...] Diagnosis Date - Anxiety - Bipolar disorder ([facility]) - CAD (coronary artery disease) 10/06/2010 - DM (diabetes mellitus) ([facility]) - Hyperlipidemia - Hypothyroidism - Nephrolithiasis - Schizophrenia ([facility]) - UTI (urinary tract infection) PAST SURGICAL HISTORY Procedure Laterality Date - CARDIAC CATH 10/06/2010 Moderate, nonhemodynamically significant stenosis of RCA (by FFR) - HYSTERECTOMY HX - PAST SURGICAL HISTORY OF 03/2016 urinary stent - TONSILLECTOMY HX ANTHROPOMETRICS Height per patient: 63? Weight per patient: 236 lbs# Most recent height and weight per [facility] Height: Last 1 Encounter Ht Readings: Date: [...] [employer] (more content not included)... [facility]* Diagnosis Calculous pyelonephritis- Primary Kidney stone [...] of non-steroidal anti-inflammatories documented in this encounter [employer] Phone: evaluation note* Diagnosis Nephrostomy tube displaced (HCC)- Primary Urinary complications Nephrostomy complication (HCC) documented in this encounter [employer] Phone: History general Narrative - Reported* Type Description Date Medical History Hypercholesterolemia Medical History DM Medical History Hypothyroid Medical History diabetic neuropathy Surgical History ALIZA BSO 2000 Surgical History Heart catherization 2009 Surgical History kidney stone Surgical History left kidney removed 10/26/2022 Hospitalization History See past surgical histor y Hospitalization History Heart Event 2009 [facility] Other Hospital Discharge instructions* Attachments The following attachments cannot be sent through Care Everywhere. * Nephrostomy Tube Care (Polish) documented in this encounterPrinciple Power Phone: Assessments No Assessments Information Available Summary [...] Referral Specialty Diagnoses / Procedures Referred By Contac t Referred To Contact Radiology Diagnoses Left renal atrophy Staghorn renal calculus Procedures NM KIDNEY W FLOW AND FUNCTION W PHARMACOLOGICAL INTERVENTION Christi Chance DO [address] [facility] [address] [place] [address] Referral ID Status Reason Start Date Expiration Date Visits Re quested Visits Authorized [id number] Open 08/03/2022 08/03/2023 1 1 Additional Source Comments INFORMATION SOURCE (unrecogn ized section and content) DATE CREATED AUTHOR 04/03/2021 [facility] DATE CREATED AUTHOR AUTHOR'S ORGANIZ ATION 03/15/2022 [facility] DATE CREATED AUTHOR AUTHOR'S ORGANIZ ATION 08/09/2022 [facility] DATE CREATED AUTHOR AUTHOR'S ORGANIZ ATION 08/11/2022 [facility] DATE CREATED AUTHOR AUTHOR'S ORGANIZ ATION 02/07/2023 [facility] DATE CREATED AUTHOR AUTHOR'S ORGANIZ ATION 03/17/2023 [facility] Reason for Visit (unrecogniz ed section and content) Reason Comments Flank Pain Specialty Diagnoses / Procedures Referred By Contac t Referred To Contact Diagnoses Kidney stone Acute pyelonephritis Calculous pyelonephritis Livia Cantrell MD [address] [facility] [address] [place] [address] [facility] [address] [place] [address] Referral ID Status Reason Start Date Expiration Date Visits Re quested Visits Authorized [id number] 1 1 Reason Comments Other nephrostamy tube got pulled. tub is broken and leaking urine. not able to gett it to stop leaking Specialty Diagnoses / Procedures Referred By Contac t Referred To Contact Diagnoses Nephrostomy tube displaced (HCC) Nephrostomy complication (HCC) Paloma Arceo MD [address] [place] [address] [employer] [address] [place] [address] Referral ID Status Reason Start Date Expiration Date Visits Re quested Visits Authorized [id number] 1 1 Ordered Prescriptions (unrec ognized section [...] Alexsandra Mckinley RN)0743 (Stopped - Provider: Ligia Mattson RN) atorvastatin (LIPITOR) tablet 80 mg 80 mg, Oral, DAILY, First dose on Mon07/19/22 at 2100, Until Discontinued 2158 (Given - Provider: TERRY BERGMAN) 2139 (Given - Provider: TERRY BERGMAN) 2100 (Due) ciprofloxacin (CIPRO) IVPB 400 mg (CANCELED) 400 mg, IntraVENous, EVERY 12 HOURS, 14 doses, First dose on Mon07/18/22 at 2145, Last dose on Mon07/25/22 at 0945, Antimicrobial Indications: Urinary Tract Infection, UTI duration of therapy: 7 days 0856 (New Bag - Provider: Ligia Mattson RN)1029 (Stopped - Provider: Ligia Mattson RN) DULoxetine (CYMBALTA) extended release capsule 60 mg 60 mg, Oral, DAILY, First dose on Mon07/20/22 at 1200, Until Discontinued, Do not crush or break. May add contents of capsule to apple juice or apple sauce, but not chocolate. 1235 (Given - Provider: Ligia Mattson RN) 0812 (Given - Provider: Latoya Chatterjee RN) 0834 (Given - Provider: Christine Campa RN) furosemide (LASIX) tablet 20 mg 20 [...] met) 0832 (Not Given - Provider: Christine Campa RN - Reason: Order parameters not met)1226 [...] physician 1126 (Not Given - Provider: Ligia Mattson RN - Reason: Other - Comment: wrong start time - nightly) 0122 (Not Given - Provider: TERRY BERGMAN - Reason: Order parameters not met)2100 (Due) insulin lispro (HUMALOG) injection vial 10 Units (COMPLETED) 10 Units, SubCUTAneous, ONCE, 1 dose, On Mon07/20/22 at 1445, Formulary alternative for regular insulin per P&T protocol. 1452 (Given - Provider: Ligia Mattson, BRANDON) insulin lispro (HUMALOG) injection vial 5 Units [...] not met) 0835 (Given - Provider: Christine Campa, BRANDON)1228 (Given - Provider: Christine Campa RN)1700 (Due) labetalol (NORMODYNE;TRANDATE) injection 10 mg (COMPLETED) 10 mg, IntraVENous, ONCE, 1 dose, On Mon07/20/22 at 2145 2200 (Given - Provider: TERRY BERGMAN) levothyroxine (SYNTHROID) tablet 200 mcg 200 mcg, Oral, DAILY, First dose on Mon07/19/22 at 0700, Until Discontinued, Tube feeding (TF) interaction, obtain physician order to manage, recommend holding TF for 30 minutes before and after dose. 0843 (Given - Provider: Ligia Mattson, BRANDON) 0812 (Given - Provider: Latoya Chatterjee RN) 0834 (Given - Provider: Christine Campa, BRANDON) lidocaine 1 % injection 5 mL 5 [...] Provider: TERRY BERGMAN)0833 (Given - Provider: Christine Campa, BRANDON)2100 (Due) tigecycline (TYGACIL) 100 mg in sodium [...] Campa, BRANDON)1614 (Not Given - Provider: Christine Campa RN - Reason: Other - Comment: per Keo [...] Mckinley RN)0751 (New Bag - Provider: Ligia Mattson RN)0856 (Rate/Dose Change - Provider: Ligia Mattson RN)0900 (Rate/Dose Verify - Provider: TERRY BERGMAN)1621 (Rate/Dose Verify - Provider: TERRY BERGMAN)202 (Stopped - Provider: TERRY BERGMAN)202 (Stopped - Provider: TERRY BERGMAN) sodium bicarbonate 75 mEq in sodium chloride 0.45 % 1,000 mL infusion (CANCELED) IntraVENous, at 50 mL/hr, CONTINUOUS, Starting on Mon07/20/22 at 1730 2027 (New Bag - Provider: TERRY BERGMAN) 0609 [...] Mckinley RN)1235 (See Alternative - Provider: Ligia Mattson, BRANDON)2355 (See Alternative - Provider: TERRY BERGMAN) acetaminophen (TYLENOL) tablet 650 mg(Linked Group 1) 650 mg, Oral, EVERY 6 HOURS PRN, Starting on Mon07/18/22 at 1814, Until Discontinued, Pain Mild (1-3), Fever, For temp greater than 100.4 F (38 C), Maximum dose of acetaminophen is 4000 mg from all sources in 24 hours. 0513 (Given - Provider: Alexsandra Mckinley RN)1235 (Given - Provider: Ligia Mattson, BRANDON)2355 (Given - Provider: TERRY BERGMAN) dextrose 10 [...] ordered. 1050 (Given - Provider: Ligia Mattson, RN)1250 (Given - Provider: Ligia Mattson, RN) fentaNYL (SUBLIMAZE) injection 50 mcg 50 mcg, IntraVENous, EVERY 1 HOUR PRN, Starting on Mon07/20/22 at 1400, Until Discontinued, Pain Severe (7-10), If oral and IV narcotics ordered, use oral first and only use IV if oral is ineffective or cannot take oral. Do Not give oral and IV within 1 hour of each other unless specifically ordered. 1821 (Given - Provider: Brandon Roach, BRANDON) 1026 (Given - Provider: Latoya Chatterjee, BRANDON) glucagon (rDNA) injection 1 mg 1 mg, [...] Severe (7-10) 1552 (Given - Provider: Ligia Mattson, BRANDON) 0812 (Given - Provider: Latoya Chatterjee RN)2141 [...] 0007 (Given - Provid er: Coretta Scott RN)1217 (Given - Provider: Tesha Boggs RN)2100 (Due) [...] dose on Mon07/25/22 at 2300, Until Discontinued 0008 (Given - Provid er: Coretta Scott RN)0900 (Not Given - Provider: Tesha Boggs RN - Reason: Patient not available - Comment: pt not arrived to floor)1216 (Given - Provider: Tesha Boggs RN)2100 (Due) hydrALAZINE (APRESOLINE) tablet 25 mg 25 mg, Oral, EVERY 8 HOURS SCHEDULED (3 times per day), First dose on Mon07/25/22 at 2300, Until Discontinued 0006 (Given - Provid er: Coretta Scott RN)0900 (Not Given - Provider: Tesha Boggs RN - Reason: Patient not available - Comment: PT not arrived to floor yet)1217 (Given - Provider: Tesha Boggs RN)2200 (Due) insulin glargine (LANTUS) injection vial 73 Units 73 Units, SubCUTAneous, NIGHTLY, First dose on Mon07/26/22 at 2100, Until Discontinued 2100 (Due) insulin lispro (HUMALOG) injection vial 13 Units 13 Units, SubCUTAneous, 3 TIMES DAILY WITH MEALS, First dose on Mon07/26/22 at 1315, Until Discontinued 1315 (Due)1700 (Due) ketorolac (TORADOL) injection 30 mg [...] low Mag 1215 (Given - Provid er: eTsha Boggs RN) ondansetron (ZOFRAN) injection 4 mg 4 mg, IntraVENous, EVERY 4 HOURS PRN, Starting on Mon07/25/22 at 2003, Until Discontinued, Nausea, Vomiting oxyCODONE-acetaminophen (PERCOCET) 5-325 MG per tablet 1 tablet Mg/kg dosing is based on the oxycodone component., 1 tablet, Oral, EVERY 4 HOURS PRN, Starting on Mon07/26/22 at 1054, Until Discontinued, Pain Severe (7-10), Maximum dose of acetaminophen is 4000 mg from all sources in 24 hours. 1101 (Given - Provid er: Tesha oBggs RN) polyethylene glycol (GLYCOLAX) packet 17 g [...]
Care Teams (unrecognized sec tion and content) Lug Loader Relationship Specialty Start Date End Date Garry Ramos MD [address] [place] [id number] PCP - General Family Medicine 07/22/22 Lug Loader Relationship Specialty Start Date End Date Garry Ramos MD [address] [place] [id number] PCP - General Family Medicine 07/22/22 FOR RECORDS PERTAINING TO PATIENTS WHO [...] BE BASED ON THE PRIMARY CLINICAL RECORDS. [facility]. provides no warranty or guarantee of the accuracy or completeness of information in this document.
[2024-05-02 20:50] VITALS: BP 106/71; PULSE 102; TEMP 36.6; O2SAT 98; BMI 43.9
--- NOTE | 2024-05-02 21:02 | ED.NAVMDI1 ---
HPI - Nausea/Vomiting/Diarrhea General Chief complaint: Abdominal Pain Stated complaint: VOMITING, DIARRHEA Time Seen by Provider: 05/02/24 20:39 Source: patient Mode of arrival: walk-in Limitations: no limitations History of Present Illness HPI Narrative: 53-year-old female presents for nausea vomiting and diarrhea. She has had it for a week. She saw her doctor a few days ago. She has had no hematemesis or fever or blood in her stool. No history of GI issues. Related Data Home Medications ?Medication ?Instructions ?Recorded ?Confirmed atorvastatin 80 mg tablet 80 mg PO DAILY 05/02/24 05/02/24 cholecalciferol (vitamin D3) 25 1,000 unit PO DAILY 05/02/24 05/02/24 mcg (1,000 unit) capsule gabapentin 600 mg tablet 1,200 mg PO BID 05/02/24 05/02/24 hydralazine 25 mg tablet 25 mg PO TID 05/02/24 05/02/24 hydrochlorothiazide 25 mg tablet 25 mg PO DAILY 05/02/24 05/02/24 hyoscyamine sulfate 0.125 mg 0.125 mg PO Q6H PRN dyspepsia 05/02/24 05/02/24 sublingual tablet insulin human U-100 NPH-regulr subcut 05/02/24 70-30 mix 100 unit/mL subcutaneous susp (Humulin 70/30 U-100 Insulin) levothyroxine 125 mcg tablet 125 mcg PO DAILY 05/02/24 05/02/24 liothyronine 5 mcg tablet 10 mcg PO DAILY 05/02/24 05/02/24 losartan 100 mg tablet 100 mg PO DAILY 05/02/24 05/02/24 metformin 500 mg tablet 500 mg PO DAILY 05/02/24 05/02/24 ondansetron 4 mg disintegrating 4 mg PO Q6H PRN nausea and vomiting 05/02/24 05/02/24 tablet pantoprazole 40 mg tablet,delayed 40 mg PO DAILY 05/02/24 05/02/24 release phentermine 37.5 mg tablet 37.5 mg PO DAILY 05/02/24 05/02/24 Allergies Allergy/AdvReac Type Severity Reaction Status Date / Time morphine Allergy Hives Verified 05/02/24 20:50 Penicillins Allergy Hives Verified 05/02/24 20:50 ketoralac Allergy Hives Uncoded 05/02/24 20:50 Review of Systems ROS Narrative A ten point review of systems is negative except as noted above. Exam Narrative Exam Narrative: Nurses note and vital signs reviewed and patient is not hypoxic. General: The patient appears well and in no apparent distress. Patient is resting comfortably on cart. Skin: Warm, dry, no pallor noted. There is no rash noted. Head: Normocephalic, atraumatic Eye: Normal conjunctiva, no drainage Ears, Nose, Mouth, and Throat: oral mucosa is moist. Nares patent. Cardiovascular: Regular Rate and Rhythm Respiratory: Patient is in no distress, no accessory muscle use, lungs are clear to auscultation, no wheezing, rales or rhonchi Back: non-tender, no CVA tenderness bilaterally to percussion. GI: Normal bowel sounds, no tenderness to palpation, no masses appreciated. No rebound, guarding, or rigidity noted. Musculoskeletal: No joint swelling Neurological: A&O, normal speech Psychiatric: Cooperative Constitutional Vital Signs, click to edit/add: Last Vital Signs Temp 97.9 F 05/02/24 20:50 Pulse 102 H 05/02/24 20:50 Resp 18 05/02/24 20:50 BP 106/71 05/02/24 20:50 Pulse Ox 98 05/02/24 20:50 O2 Del Method Room Air 05/02/24 20:50 Course Vital Signs Vital signs: Vital Signs Temperature 97.9 F 05/02/24 20:50 Pulse Rate 102 H 05/02/24 20:50 Respiratory Rate 18 05/02/24 20:50 Blood Pressure 106/71 05/02/24 20:50 Pulse Oximetry 98 05/02/24 20:50 Oxygen Delivery Method Room Air 05/02/24 20:50 Temperature 97.9 F 05/02/24 20:50 Pulse Rate 102 H 05/02/24 20:50 Respiratory Rate 18 05/02/24 20:50 Blood Pressure 106/71 05/02/24 20:50 Pulse Oximetry 98 05/02/24 20:50 Oxygen Delivery Method Room Air 05/02/24 20:50 MDM - Nausea/Vomiting/Diarrhea MDM Narrative Medical decision making narrative: The patient's creatinine is 3.47. This is likely from dehydration secondary to gastroenteritis. 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 She is given IV fluids and is feeling improved. She will be admitted. Treatment diagnosis and disposition were discussed with the patient. Differential Diagnosis Differential diagnosis: Likely gastroenteritis, dehydration and other (Acute kidney injury) Lab Data Attestation: I reviewed the patient's lab results. Labs: Lab Results 05/02/24 Range/Units 21:00 WBC 8.1 (4.0-11.0) 10^3/uL RBC 4.93 (4.20-5.40) 10^6/uL Hgb 13.7 (12.0-16.0) g/dL Hct 42.2 (36.0-48.0) % MCV 85.6 (81.0-99.0) fL MCH 27.8 (26.7-34.0) pg MCHC 32.5 (29.9-35.2) g/dL RDW 13.8 (11.0-15.0) % Plt Count 413 (150-450) 10^3/uL MPV 9.8 (9.5-13.5) fL Neut % (Auto) 53.4 (43.0-75.0) % Lymph % (Auto) 33.0 (20.5-60.0) % [place] % (Auto) 10.2 (1.7-12.0) % Eos % (Auto) 1.8 (0.9-7.0) % Baso % (Auto) 0.5 (0.2-2.0) % Neut # (Auto) 4.3 (1.4-6.5) 10^3/uL Lymph # (Auto) 2.7 (1.2-3.8) 10^3/uL Monroe # (Auto) 0.8 (0.3-0.8) 10^3/uL Eos # (Auto) 0.2 (0.0-0.7) 10^3/uL Baso # (Auto) 0.0 (0.0-0.1) 10^3/uL Abs Immat Gran (auto) 0.09 H (0.00-0.03) 10^3/uL Imm/Tot Granulo (auto) 1.1 H (0.0-0.5) % Sodium 138 (136-145) mmol/L Potassium 3.4 L (3.5-5.1) mmol/L Chloride 99 (98-107) mmol/L Carbon Dioxide 25.6 (21.0-32.0) mmol/L Anion Gap 16.8 BUN 31.0 H (7.0-18.0) mg/dL Creatinine 3.47 H (0.55-1.02) mg/dL Est GFR ( Amer) 17 L (>=60) Est GFR (Non-Af Amer) 14 L (>=60) BUN/Creatinine Ratio 8.9 Glucose 135 H (74-106) mg/dL Calcium 9.2 (8.5-10.1) mg/dL Discharge Plan Discharge Chief Complaint: Abdominal Pain Clinical Impression: Acute kidney injury Patient Disposition: Admitted As Inpatient Time of Disposition Decision: 21:31 Condition: Fair
[2024-05-02 21:06] LABS: Basophils Percent Auto 0.5 % (0.2-2.0); Eosinophils Absolute Auto 0.2 10^3/uL (0.0-0.7); Eosinophils Percent Auto 1.8 % (0.9-7.0); Hematocrit 42.2 % (36.0-48.0); Hemoglobin 13.7 g/dL (12.0-16.0); Immature Granulocytes Abs Auto 0.09 10^3/uL (0.00-0.03); Immature Granulocytes Pct Auto 1.1 % (0.0-0.5); Lymphocytes Absolute Auto 2.7 10^3/uL (1.2-3.8); Mean Corpuscular HGB Conc 32.5 g/dL (29.9-35.2); Mean Corpuscular Hemoglobin 27.8 pg (26.7-34.0); Mean Corpuscular Volume 85.6 fL (81.0-99.0); Mean Platelet Volume 9.8 fL (9.5-13.5); Monocytes Absolute Auto 0.8 10^3/uL (0.3-0.8); Monocytes Percent Auto 10.2 % (1.7-12.0); Neutrophils Absolute Auto 4.3 10^3/uL (1.4-6.5); Neutrophils Percent Auto 53.4 % (43.0-75.0); Platelet Count 413 10^3/uL (150-450); Red Blood Count 4.93 10^6/uL (4.20-5.40); Red Cell Distribution Width 13.8 % (11.0-15.0); White Blood Count 8.1 10^3/uL (4.0-11.0)
[2024-05-02] MEDS: ONDANSETRON PF 4 MG/2 ML VIAL IV (21:14)
[2024-05-02] MEDS: 0.9 % SODIUM CHLORIDE 1,000 ML 1000 ML IV (21:14)
[2024-05-02 21:15] LABS: Anion Gap 16.8; BUN Creatinine Ratio 8.9; Calcium 9.2 mg/dL (8.5-10.1); Carbon Dioxide 25.6 mmol/L (21.0-32.0); Chloride 99 mmol/L (98-107); Estimated GFR (African America 17 (>=60); Estimated GFR (Non-African Ame 14 (>=60); Glucose 135 mg/dL (74-106); Potassium 3.4 mmol/L (3.5-5.1); Sodium 138 mmol/L (136-145)
[2024-05-02 22:05] LABS: Magnesium 1.5 mg/dL (1.8-2.4)
--- OUTSIDE RECORDS SUMMARY | 2024-05-02 22:54 | XMS_ITS | CCD ---
Author Organization [facility] Care Team Providers Care Lock Stitch Channeler Name Role Phone GARRY RAMOS Referring Unavailable GARRY RAMOS Primary Care Unavailable SHOLA VILLAFUERTE Attending Unavailable SHOLA VILLAFUERTE Admitting Unavailable Garry Ramos MD Primary Care Provider [phone] CHRISTI CHANCE Referring Unavailable GARRY RAMOS Primary Care Unavailable GARRY RAMOS Primary Care Unavailable ROBERT GARCIA Consulting Unavailable PALOMA ARCEO Admitting Unavailable PALOMA ARCEO Attending Unavailable CHINO DEMPSEY Consulting Unavailable SOLITARIO, LIVIA Admitting Unavailable SOLITARIO LIVIA Attending Unavailable GARRY RAMOS Primary Care [...] Primary Care Unavailable NAGIY ., DR CASTAÑEDA Consulting Unavailable BAKHOUS, AZIZ Admitting Unavailable BAKHOUS, AZIZ Consulting Unavailable RICHARD ., DR CASTAÑEDA Primary Care Unavailable BAKHOUS, AZIZ Attending Unavailable HOY ., DR CASTAÑEDA Attending Unavailable HOY ., DR CASTAÑEDA Admitting Unavailable HOY ., DR CASTAÑEDA Primary Care Unavailable HOY ., DR CASTAÑEDA Consulting Unavailable HOY ., DR CASTAÑEDA Primary Care Unavailable HOY ., DR CASTÑAEDA Consulting Unavailable HOY ., DR CASTAÑEDA Attending [...] Morphine; Translations: [MORPHINE] Drug Allergy 9 [facility] Penicillins (antibiotic) (1 source) Penicillin; Translations: [PENICILLIN] Drug Allergy 9 [facility] (3 sources) HYDROmorphone; Translations: [HYDROMORPHONE] Drug Allergy 0 [facility] (4 sources) Morphine; Translations: [MORPHINE] Drug Allergy 2 [facility] Work Phone: (5 sources) Penicillins; Translations: [PENICILLINS] Propensity to adverse reactions to drug 9 Anaphylaxis [facility] [employer] (2 sources) Ciprofloxacin Drug Allergy 6 [facility] (1 source) penicillAMINE Drug Allergy hives [place] [employer] Other (2 sources) Ciprofloxacin Drug Allergy 6 [facility] (1 source) HYDROmorphone Drug Allergy [facility] (2 sources) Morphine Drug Allergy 9 [facility] Medications Current Medications Medication Drug Class(es) [...] Active Start: 07-23-2022 take 1 tablet by [facility] once daily furosemide (LASIX) 20 MG tablet [...] mg Start: 03-21-2020 take 2 tablets by [facility] every twelve hours Gabapentin 600 MG [...] Mon07/25/22 at 2003, Until Discontinued, Nausea, Vomiting polyethylene glycol [id number] [id number] mg powder for oral solution (2 sources) [...] disease (1 source) Atherosclerotic heart disease of [place] coronary artery without angina pectoris; Translations: [ASHD [place] W/O ANGINA PECTORIS] Onset: 2 Chronic [...] aftercare (3 sources) Patient encounter status; Translations: [FPC (current) use of non-steroidal anti-inflammatories (NSAID)] Onset: [...] Onset: 04-15-2022 Episodic Other aftercare (1 source) 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 (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; Translations: [CORRECTION CURRENT USE OF ASPIRIN] Onset: 07-20-2022 Episodic Other aftercare (1 source) Other half-way (current) drug therapy; Translations: [OTH STORE SALES CONSULTANT CURRENT DRUG THERAPY] Onset: 07-20-2022 Episodic Other aftercare (1 source) 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 (current) use of oral hypoglycemic drugs; Translations: [STORE SALES CONSULTANT USE ORAL HYPOGLYCEMIC DX] Onset: 07-20-2022 Episodic [...] 03-11-2023 PTH, Intact 31 pg/mL Normal 15-65 [facility] Comment on above: Performed By: #### U MICRO, ERUR #### [facility] [address] [place] [address] Dr. Delmer Rea FERRITINon 03-10-2023 Ferritin [Mass/Vol] 35.0 ng/mL Normal 8.0-252.0 [facility] Comment on above: Performed By: #### L IPA, DLDL, CON, LIPID, T7, CMP, TSH #### [facility] [address] [place] [address] Dr. Delmer Rea HEMOGRAM AND PLATELon 2022 Hematocrit (Bld) [Volume fraction] 35.5 % Critically low 36.0-48.0 [facility] Comment on above: Performed By: #### L IPA, DLDL, CON, LIPID, T7, CMP, TSH #### [facility] [address] [place] [address] Dr. Delmer Rea Hemoglobin (Bld) [Mass/Vol] 11.6 g/dL Critically low 12.0-16.0 [facility] Comment on above: Performed By: #### L IPA, DLDL, CON, LIPID, T7, CMP, TSH #### [facility] [address] [place] [address] Dr. Delmer Rea MCH (RBC) [Entitic mass] 27.3 pg Normal 26.7-34.0 [facility] Comment on above: Performed By: #### L IPA, DLDL, CON, LIPID, T7, CMP, TSH #### [facility] [address] [place] [address] Dr. Delmer Rea MCHC (RBC) [Mass/Vol] 32.7 g/dL Normal 29.9-35.2 [facility] Comment on above: Performed By: #### L IPA, DLDL, CON, LIPID, T7, CMP, TSH #### [facility] [address] [place] [address] Dr. Delmer Rea MCV (RBC) [Entitic vol] 83.5 fL Normal 81.0-99.0 [facility] Comment on above: Performed By: #### L IPA, DLDL, CON, LIPID, T7, CMP, TSH #### [facility] [address] [place] [address] Dr. Delmer Rea PLT 273 103/ul Normal 150-450 [facility] Comment on above: Performed By: #### L IPA, DLDL, CON, LIPID, T7, CMP, TSH #### [facility] [address] [place] [address] Dr. Delmer Rea RBC 4.25 106/ul Normal 4.20-5.40 [facility] Comment on above: Performed By: #### L IPA, DLDL, CON, LIPID, T7, CMP, TSH #### [facility] [address] [place] [address] Dr. Delmer Rea WBC 5.5 103/ul Normal 4.0-11.0 [facility] Comment on above: Performed By: #### L IPA, DLDL, CON, LIPID, T7, CMP, TSH #### [facility] [address] [place] [address] Dr. Delmer Rea IRON AND TIBCon 03-10-2023 % SATURATION 13.6 % Normal [facility] Comment on above: Performed By: #### L IPA, DLDL, CON, LIPID, T7, CMP, TSH #### [facility] [address] [address] [address] Delmer Rea Iron [Mass/Vol] 61.0 ug/dL Normal 50.0-170.0 [facility] Comment on above: Performed By: #### L IPA, DLDL, CON, LIPID, T7, CMP, TSH #### [facility] [address] [address] [address] Delmer Rea TIBC DIRECT 447.0 ug/dL Normal 250.0-450.0 [facility] Comment on above: Performed By: #### L IPA, DLDL, CON, LIPID, T7, CMP, TSH #### [facility] [address] [place] [address] Dr. Delmer Rea MAGNESIUMon 03-10-2023 Magnesium [Mass/Vol] 1.7 mg/dL Critically low 1.8-2.4 [facility] Comment on above: Performed By: #### L IPA, DLDL, CON, LIPID, T7, CMP, TSH #### [facility] [address] [place] [address] Dr. Delmer Rea PHOSPHORUSon 03-10-2023 Phosphate [Mass/Vol] 4.9 mg/dL Critically high 2.6-4.7 [facility] Comment on above: Performed By: #### L IPA, DLDL, CON, LIPID, T7, CMP, TSH #### [facility] [address] [place] [address] Dr. Delmer Rea PROF 14(COMP METB)on 023 Albumin [Mass/Vol] 3.4 g/dL Normal 3.4-5.0 [facility] Comment on above: Performed By: #### L IPA, DLDL, CON, LIPID, T7, CMP, TSH #### [facility] [address] [place] [address] Dr. Delmer Rea Albumin/Globulin [Mass ratio] 0.8 {ratio} Normal [facility] Comment on above: Performed By: #### L IPA, DLDL, CON, LIPID, T7, CMP, TSH #### [facility] [address] [place] [address] Dr. Delmer Rea ALP [Catalytic activity/Vol] 102 U/L Normal 46-116 [facility] Comment on above: Performed By: #### L IPA, DLDL, CON, LIPID, T7, CMP, TSH #### [facility] [address] [place] [address] Dr. Delmer Rea ALT [Catalytic activity/Vol] 28 U/L Normal 14-59 [facility] Comment on above: Performed By: #### L IPA, DLDL, CON, LIPID, T7, CMP, TSH #### [facility] [address] [place] [address] Dr. Delmer Rea Anion gap [Moles/Vol] 15.1 mmol/L Normal [facility] Comment on above: Performed By: #### L IPA, DLDL, CON, LIPID, T7, CMP, TSH #### [facility] [address] [place] [address] Dr. Delmer Rea AST [Catalytic activity/Vol] 16 U/L Normal 15-37 [facility] Comment on above: Performed By: #### L IPA, DLDL, CON, LIPID, T7, CMP, TSH #### [facility] [address] [place] [address] Dr. Delmer Rea Bilirubin [Mass/Vol] 0.5 mg/dL Normal 0.2-1.0 [facility] Comment on above: Performed By: #### L IPA, DLDL, CON, LIPID, T7, CMP, TSH #### [facility] [address] [place] [address] Dr. Delmer Rea Calcium [Mass/Vol] 9.5 mg/dL Normal 8.5-10.1 [facility] Comment on above: Performed By: #### L IPA, DLDL, CON, LIPID, T7, CMP, TSH #### [facility] [address] [place] [address] Dr. Delmer Rea Chloride [Moles/Vol] 100 mmol/L Normal 98-107 [facility] Comment on above: Performed By: #### L IPA, DLDL, CON, LIPID, T7, CMP, TSH #### [facility] [address] [address] [address] Delmer Rea CO2 [Moles/Vol] 23.4 mmol/L Normal 21.0-32.0 [facility] Comment on above: Performed By: #### L IPA, DLDL, CON, LIPID, T7, CMP, TSH #### [facility] [address] [address] [address] Delmer Rea Creatinine [Mass/Vol] 1.86 mg/dL Critically high 0.55-1.02 [facility] Comment on above: Performed By: #### L IPA, DLDL, CON, LIPID, T7, CMP, TSH #### [facility] [address] [place] [address] Dr. Delmer Rea EGFR-AF GUATEMALAN 35 mL/min/1.73m2 Critically low >=60 [facility] Comment on above: Performed By: #### L IPA, DLDL, CON, LIPID, T7, CMP, TSH #### [facility] [address] [place] [address] Dr. Delmer Rea EGFR-NON AF GUATEMALAN 29 mL/min/1.73m2 Critically low >=60 [facility] Comment on above: Performed By: #### L IPA, DLDL, CON, LIPID, T7, CMP, TSH #### [facility] [address] [place] [address] Dr. Delmer Rea Globulin (S) [Mass/Vol] 4.3 g/dL Normal [facility] Comment on above: Performed By: #### L IPA, DLDL, CON, LIPID, T7, CMP, TSH #### [facility] [address] [place] [address] Dr. Delmer Rea Glucose [Mass/Vol] 197 mg/dL Critically high 74-106 T [facility] Comment on above: Performed By: #### L IPA, DLDL, CON, LIPID, T7, CMP, TSH #### [facility] [address] [place] [address] Dr. Delmer Rea Potassium [Moles/Vol] 4.5 mmol/L Normal 3.5-5.1 [facility] Comment on above: Performed By: #### L IPA, DLDL, CON, LIPID, T7, CMP, TSH #### [facility] [address] [place] [address] Dr. Delmer eRa Protein [Mass/Vol] 7.7 g/dL Normal 6.4-8.2 [facility] Comment on above: Performed By: #### L IPA, DLDL, CON, LIPID, T7, CMP, TSH #### [facility] [address] [address] [address] Delmer Rea Sodium [Moles/Vol] 134 mmol/L Critically low 136-145 Th [facility] Comment on above: Performed By: #### L IPA, DLDL, CON, LIPID, T7, CMP, TSH #### [facility] [address] [place] [address] Dr. Delmer Rea Urea nitrogen [Mass/Vol] 40.0 mg/dL Critically high 7.0-18.0 [facility] Comment on above: Performed By: #### L IPA, DLDL, CON, LIPID, T7, CMP, TSH #### [facility] [address] [place] [address] Dr. Delmer Rea Urea nitrogen/Creatinine [Mass ratio] 21.5 mg/mg Normal [facility] Comment on above: Performed By: #### L IPA, DLDL, CON, LIPID, T7, CMP, TSH #### [facility] [address] [place] [address] Dr. Delmer Rea URIC ACID SERUMon 03-10-2023 Urate [Mass/Vol] 7.1 mg/dL Critically high 2.6-6.0 [facility] Comment on above: Performed By: #### L IPA, DLDL, CON, LIPID, T7, CMP, TSH #### [facility] [address] [place] [address] Dr. Delmer Rea VIT B12 AND FOLATEon 023 Cobalamin (Vitamin B12) [Mass/Vol] 369.0 pg/mL Normal 193.0-986.0 [facility] Comment on above: Performed By: #### L IPA, DLDL, CON, LIPID, T7, CMP, TSH #### [facility] [address] [address] [address] Delmer Rea FOLATE 20.30 ng/mL Normal 8.60-58.90 [facility] Comment on above: Performed By: #### L IPA, DLDL, CON, LIPID, T7, CMP, TSH #### [facility] [address] [address] [address] Delmer Rea VITAMIN D 25 OHon 03-10-2023 VIT D 25-OH 13.0 ng/mL Normal [facility] Comment on above: Performed By: #### L IPA, DLDL, CON, LIPID, T7, CMP, TSH #### [facility] [address] [place] [address] Dr. Delmer Rea VIT D RANGES SEE BELOW Normal [facility] Comment on above: Result Comment: <20 ng/mL Vit D deficient 20 - <30 ng/mL Vit D insufficient 30 - 100 ng/mL Vit D sufficient >100 ng/mL Potential Toxicity Performed By: #### L IPA, DLDL, CON, LIPID, T7, CMP, TSH #### [facility] [address] [place] [address] Dr. Delmer Rea 36on 02-02-2023 36 02/02/23 mailed delorise r asking patient to contact office to reschedule appointment due to provider ([place]ub[place]) out of office[facility] PROF 14(COMP METB)on 023 Albumin [Mass/Vol] 3.4 g/dL Normal 3.4-5.0 [facility] Comment on above: Performed By: #### L IPA, DLDL, CON, LIPID, T7, CMP, TSH #### [facility] [address] [place] [address] Dr. Delmer Rea Albumin/Globulin [Mass ratio] 0.9 {ratio} Normal [facility] Comment on above: Performed By: #### L IPA, DLDL, CON, LIPID, T7, CMP, TSH #### [facility] [address] [place] [address] Dr. Delmer Rea ALP [Catalytic activity/Vol] 95 U/L Normal 46-116 [facility] Comment on above: Performed By: #### L IPA, DLDL, CON, LIPID, T7, CMP, TSH #### [facility] [address] [place] [address] Dr. Delmer Rea ALT [Catalytic activity/Vol] 23 U/L Normal 14-59 [facility] Comment on above: Performed By: #### L IPA, DLDL, CON, LIPID, T7, CMP, TSH #### [facility] [address] [address] [address] Delmer Rea Anion gap [Moles/Vol] 15.2 mmol/L Normal [facility] Comment on above: Performed By: #### L IPA, DLDL, CON, LIPID, T7, CMP, TSH #### [facility] [address] [place] [address] Dr. Delmer Rea AST [Catalytic activity/Vol] 8 U/L Critically low 15-37 [facility] Comment on above: Performed By: #### L IPA, DLDL, CON, LIPID, T7, CMP, TSH #### [facility] [address] [place] [address] Dr. Delmer Rea Bilirubin [Mass/Vol] 0.3 mg/dL Normal 0.2-1.0 [facility] Comment on above: Performed By: #### L IPA, DLDL, CON, LIPID, T7, CMP, TSH #### [facility] [address] [place] [address] Dr. Delmer Rea Calcium [Mass/Vol] 9.2 mg/dL Normal 8.5-10.1 [facility] Comment on above: Performed By: #### L IPA, DLDL, CON, LIPID, T7, CMP, TSH #### [facility] [address] [address] [address] Delmer Rea Chloride [Moles/Vol] 102 mmol/L Normal 98-107 [facility] Comment on above: Performed By: #### L IPA, DLDL, CON, LIPID, T7, CMP, TSH #### [facility] [address] [place] [address] Dr. Delmer Rea CO2 [Moles/Vol] 22.6 mmol/L Normal 21.0-32.0 [facility] Comment on above: Performed By: #### L IPA, DLDL, CON, LIPID, T7, CMP, TSH #### [facility] [address] [place] [address] Dr. Delmer Rea Creatinine [Mass/Vol] 1.89 mg/dL Critically high 0.55-1.02 [facility] Comment on above: Performed By: #### L IPA, DLDL, CON, LIPID, T7, CMP, TSH #### [facility] [address] [place] [address] Dr. Delmer Rea EGFR-AF GUATEMALAN 34 mL/min/1.73m2 Critically low >=60 [facility] Comment on above: Performed By: #### L IPA, DLDL, CON, LIPID, T7, CMP, TSH #### [facility] [address] [place] [address] Dr. Delmer Rea EGFR-NON AF GUATEMALAN 28 mL/min/1.73m2 Critically low >=60 [facility] Comment on above: Performed By: #### L IPA, DLDL, CON, LIPID, T7, CMP, TSH #### [facility] [address] [place] [address] Dr. Delmer Rea Globulin (S) [Mass/Vol] 3.9 g/dL Normal [facility] Comment on above: Performed By: #### L IPA, DLDL, CON, LIPID, T7, CMP, TSH #### [facility] [address] [place] [address] Dr. Delmer Rea Glucose [Mass/Vol] 257 mg/dL Critically high 74-106 T [facility] Comment on above: Performed By: #### L IPA, DLDL, CON, LIPID, T7, CMP, TSH #### [facility] [address] [place] [address] Dr. Delmer Rea Potassium [Moles/Vol] 4.8 mmol/L Normal 3.5-5.1 [facility] Comment on above: Performed By: #### L IPA, DLDL, CON, LIPID, T7, CMP, TSH #### [facility] [address] [address] [address] Delmer Rea Protein [Mass/Vol] 7.3 g/dL Normal 6.4-8.2 [facility] Comment on above: Performed By: #### L IPA, DLDL, CON, LIPID, T7, CMP, TSH #### [facility] [address] [place] [address] Dr. Delmer Rea Sodium [Moles/Vol] 135 mmol/L Critically low 136-145 Th [facility] Comment on above: Performed By: #### L IPA, DLDL, CON, LIPID, T7, CMP, TSH #### [facility] [address] [place] [address] Dr. Delmer Rea Urea nitrogen [Mass/Vol] 39.0 mg/dL Critically high 7.0-18.0 [facility] Comment on above: Performed By: #### L IPA, DLDL, CON, LIPID, T7, CMP, TSH #### [facility] [address] [place] [address] Dr. Delmer Rea Urea nitrogen/Creatinine [Mass ratio] 20.6 mg/mg Normal [facility] Comment on above: Performed By: #### L IPA, DLDL, CON, LIPID, T7, CMP, TSH #### [facility] [address] [place] [address] Dr. Delmer Rea PROF 14(COMP METB)on 023 Albumin [Mass/Vol] 3.5 g/dL Normal 3.4-5.0 [facility] Comment on above: Performed By: #### U MICRO, ERUR #### [facility] [address] [place] [address] Dr. Delmer Rea Albumin/Globulin [Mass ratio] 0.8 {ratio} Normal [facility] Comment on above: Performed By: #### U MICRO, ERUR #### [facility] [address] [place] [address] Dr. Delmer Rea ALP [Catalytic activity/Vol] 113 U/L Normal 46-116 [facility] Comment on above: Performed By: #### U MICRO, ERUR #### [facility] [address] [address] [address] Delmer Rea ALT [Catalytic activity/Vol] 23 U/L Normal 14-59 [facility] Comment on above: Performed By: #### U MICRO, ERUR #### [facility] [address] [address] [address] Delmer Rea Anion gap [Moles/Vol] 15.5 mmol/L Normal [facility] Comment on above: Performed By: #### U MICRO, ERUR #### [facility] [address] [address] [address] Delmer Rea AST [Catalytic activity/Vol] 15 U/L Normal 15-37 [facility] Comment on above: Performed By: #### U MICRO, ERUR #### [facility] [address] [place] [address] Dr. Delmer Rea Bilirubin [Mass/Vol] 0.3 mg/dL Normal 0.2-1.0 [facility] Comment on above: Performed By: #### U MICRO, ERUR #### [facility] [address] [address] [address] Delmer Rea Calcium [Mass/Vol] 9.5 mg/dL Normal 8.5-10.1 [facility] Comment on above: Performed By: #### U MICRO, ERUR #### [facility] [address] [address] [address] Delmer Rea Chloride [Moles/Vol] 104 mmol/L Normal 98-107 [facility] Comment on above: Performed By: #### U MICRO, ERUR #### [facility] [address] [address] [address] Delmer Rea CO2 [Moles/Vol] 25.1 mmol/L Normal 21.0-32.0 [facility] Comment on above: Performed By: #### U MICRO, ERUR #### [facility] [address] [address] [address] Delmer Rea Creatinine [Mass/Vol] 1.29 mg/dL Critically high 0.55-1.02 [facility] Comment on above: Performed By: #### U MICRO, ERUR #### [facility] [address] [address] [address] Delmer Rea EGFR-AF GUATEMALAN 53 mL/min/1.73m2 Critically low >=60 [facility] Comment on above: Performed By: #### U MICRO, ERUR #### [facility] [address] [address] [address] Delmer Rea EGFR-NON AF GUATEMALAN 44 mL/min/1.73m2 Critically low >=60 [facility] Comment on above: Performed By: #### U MICRO, ERUR #### [facility] [address] [address] [address] Delmer Rea Globulin (S) [Mass/Vol] 4.2 g/dL Normal [facility] Comment on above: Performed By: #### U MICRO, ERUR #### [facility] [address] [address] [address] Delmer Rea Glucose [Mass/Vol] 135 mg/dL Critically high 74-106 [facility] Comment on above: Performed By: #### U MICRO, ERUR #### [facility] [address] [address] [address] Delmer Rea Potassium [Moles/Vol] 4.6 mmol/L Normal 3.5-5.1 [facility] Comment on above: Performed By: #### U MICRO, ERUR #### [facility] [address] [address] [address] Delmer Rea Protein [Mass/Vol] 7.7 g/dL Normal 6.4-8.2 [facility] Comment on above: Performed By: #### U MICRO, ERUR #### [facility] [address] [address] [address] Delmer Rea Sodium [Moles/Vol] 140 mmol/L Normal 136-145 [facility] Comment on above: Performed By: #### U MICRO, ERUR #### [facility] [address] [address] [address] Delmer Rea Urea nitrogen [Mass/Vol] 28.0 mg/dL Critically high 7.0-18.0 [facility] Comment on above: Performed By: #### U MICRO, ERUR #### [facility] [address] [place] [address] Dr. Delmer Rea Urea nitrogen/Creatinine [Mass ratio] 21.7 mg/mg Normal [facility] Comment on above: Performed By: #### U MICRO, ERUR #### [facility] [address] [place] [address] Dr. Delmer Rea H PYLORI ANTIBODY IGGon 11-07 H. PYLORI IGG ABS 4.50 Index Value Critically high 0.00-0. 79 [facility] Comment on above: Result Comment: Nega tive <0.80 Equivocal 0.80 - 0.89 Positive >0.89 Performed By: #### L IPA, DLDL, CON, LIPID, T7, CMP, TSH #### [facility] [address] [place] [address] Dr. Delmer Rea AMYLASEon 11-25-2022 Amylase [Catalytic activity/Vol] 42 U/L Normal 25-115 [facility] Comment on above: Performed By: #### L IPA, DLDL, CON, LIPID, T7, CMP, TSH #### [facility] [address] [place] [address] Dr. Delmer Rea CBC AUTO DIFFon 11-25-2022 BASO # 0.0 103/ul Normal 0.0-0.1 [facility] Comment on above: Performed By: #### U MICRO, ERUR #### [facility] [address] [place] [address] Dr. Delmer Rea Basophils/100 WBC (Bld) 0.6 % Normal 0.2-2.0 The [facility] Comment on above: Performed By: #### U MICRO, ERUR #### [facility] [address] [place] [address] Dr. Delmer Rea EO # 0.2 103/ul Normal 0.0-0.7 [facility] Comment on above: Performed By: #### U MICRO, ERUR #### [facility] [address] [place] [address] Dr. Delmer Rea Eosinophils/100 WBC (Bld) 3.2 % Normal 0.9-7.0 The [facility] Comment on above: Performed By: #### U MICRO, ERUR #### [facility] [address] [place] [address] Dr. Delmer Rea Erythrocyte distribution width (RBC) [Ratio] 13.5 % Normal 11.0-15.0 The [facility] Comment on above: Performed By: #### U MICRO, ERUR #### [facility] [address] [place] [address] Dr. Delmer Rea Hematocrit (Bld) [Volume fraction] 28.6 % Critically low 36.0-48.0 The [facility] Comment on above: Performed By: #### U MICRO, ERUR #### [facility] [address] [place] [address] Dr. Delmer Rea Hemoglobin (Bld) [Mass/Vol] 10.4 g/dL Critically low 12.0-16.0 [facility] Comment on above: Performed By: #### U MICRO, ERUR #### [facility] [address] [place] [address] Dr. Delmer Rea IG # 0.06 10e3/ul Critically high 0.00-0.03 [facility] Comment on above: Performed By: #### U MICRO, ERUR #### [facility] [address] [place] [address] Dr. Delmer Rea IG % 0.9 % Critically high 0.0-0.5 The [facility] Comment on above: Performed By: #### U MICRO, ERUR #### [facility] [address] [place] [address] Dr. Delmer Rea LYMPH # 2.2 103/ul Normal 1.2-3.8 The [facility] Comment on above: Performed By: #### U MICRO, ERUR #### [facility] [address] [place] [address] Dr. Delmer Rea Lymphocytes/100 WBC (Bld) 32.2 % Normal 20.5-60.0 The [facility] Comment on above: Performed By: #### U MICRO, ERUR #### [facility] [address] [address] [address] Delmer Rea MANUAL DIFF REQ NO Normal [facility] Comment on above: Performed By: #### U MICRO, ERUR #### [facility] [address] [address] [address] Delmer Rea MCH (RBC) [Entitic mass] 27.6 pg Normal 26.7-34.0 [facility] Comment on above: Performed By: #### U MICRO, ERUR #### [facility] [address] [address] [address] Delmer Rea MCHC (RBC) [Mass/Vol] 36.4 g/dL Critically high 29.9-35.2 [facility] Comment on above: Performed By: #### U MICRO, ERUR #### [facility] [address] [place] [address] Dr. Delmer Rea MCV (RBC) [Entitic vol] 75.9 fL Critically low 81.0-99.0 [facility] Comment on above: Performed By: #### U MICRO, ERUR #### [facility] [address] [address] [address] Delmer Rea MONO # 0.7 103/ul Normal 0.3-0.8 [facility] Comment on above: Performed By: #### U MICRO, ERUR #### [facility] [address] [address] [address] Delmer Rea Monocytes/100 WBC (Bld) 9.4 % Normal 1.7-12.0 [facility] Comment on above: Performed By: #### U MICRO, ERUR #### [facility] [address] [address] [address] Delmer Rea NEUT # 3.7 103/ul Normal 1.4-6.5 [facility] Comment on above: Performed By: #### U MICRO, ERUR #### [facility] [address] [place] [address] Dr. Delmer Rea Neutrophils/100 WBC (Bld) 53.7 % Normal 43.0-75.0 [facility] Comment on above: Performed By: #### U MICRO, ERUR #### [facility] [address] [address] [address] Delmer Rea Platelet mean volume (Bld) [Entitic vol] 9.4 fL Critically low 9.5-13.5 [facility] Comment on above: Performed By: #### U MICRO, ERUR #### [facility] [address] [address] [address] Delmer Rea PLT 313 103/ul Normal 150-450 The [facility] Comment on above: Performed By: #### U MICRO, ERUR #### [facility] [address] [address] [address] Delmer Rae RBC 3.77 106/ul Critically low 4.20-5.40 [facility] Comment on above: Performed By: #### U MICRO, ERUR #### [facility] [address] [address] [address] Delmer Rea WBC 6.9 103/ul Normal 4.0-11.0 [facility] Comment on above: Performed By: #### U MICRO, ERUR #### [facility] [address] [address] [address] Delmer Rea DIRECT LDLon 11-25-2022 Cholesterol in LDL [Mass/Vol] 102 mg/dL Normal The [facility] Comment on above: Performed By: #### L IPA, DLDL, CON, LIPID, T7, CMP, TSH #### [facility] [address] [address] [address] Delmer Rea DLDL NORMAL SEE BELOW Normal The [facility] Comment on above: Result Comment: <100 mg/dl OPTIMAL 100 - 129 mg/dl NEAR OR ABOVE OPTIMAL 130 - 159 mg/dl BORDERLINE HIGH 160 - 189 mg/dl HIGH >190 mg/dl VERY HIGH Performed By: #### L IPA, DLDL, CON, LIPID, T7, CMP, TSH #### [facility] [address] [address] [address] Delmer Rea FREE THYROXINE INDEX T7on FTI 4.31 Normal 1.30-4.50 [facility] Comment on above: Performed By: #### L IPA, DLDL, CON, LIPID, T7, CMP, TSH #### [facility] [address] [address] [address] Delmer Rea T3U 35.0 % Normal 30.0-39.0 [facility] Comment on above: Performed By: #### L IPA, DLDL, CON, LIPID, T7, CMP, TSH #### [facility] [address] [address] [address] Delmer Rea T4 [Mass/Vol] 12.30 ug/dL Normal 4.80-13.90 [facility] Comment on above: Performed By: #### L IPA, DLDL, CON, LIPID, T7, CMP, TSH #### [facility] [address] [place] [address] Dr. Delmer Rea GLYCOHEMOGLOBIN A1Con 2022 ADA RECOMMENDATION SEE BELOW Normal [facility] Comment on above: Result Comment: ADA RECOMMENDED LIMIT 4.0 - 6.0 ADA THERAPEUTIC TARGET < 7.0 ACTION SUGGESTED > 7.0 Performed By: #### U MICRO, ERUR #### [facility] [address] [place] [address] Dr. Delmer Rea Glucose [Mass/Vol] 180 mg/dL Normal [facility] Comment on above: Performed By: #### U MICRO, ERUR #### [facility] [address] [address] [address] Delmer Rea HbA1c (Bld) [Mass fraction] 7.9 % Critically high 4.5-6.2 [facility] Comment on above: Performed By: #### U MICRO, ERUR #### [facility] [address] [address] [address] Delmer Rea IRONon 11-25-2022 Iron [Mass/Vol] 35.0 ug/dL Critically low 50.0-170.0 [facility] Comment on above: Performed By: #### L IPA, DLDL, CON, LIPID, T7, CMP, TSH #### [facility] [address] [place] [address] Dr. Delmer Rea LIPASEon 11-25-2022 Lipase [Catalytic activity/Vol] 155.0 U/L Normal 73.0-393.0 [facility] Comment on above: Performed By: #### L IPA, DLDL, CON, LIPID, T7, CMP, TSH #### [facility] [address] [address] [address] Delmer Rea LIPID PROFILEon 11-25-2022 CHOL-HDL RATIO NORM SEE BELOW Normal [facility] Comment on above: Result Comment: 3.3 - 4.4 LOW RISK 4.4 - 7.1 AVERAGE RISK 7.1 - 11.0 MODERATE RISK >11.0 HIGH RISK Performed By: #### L IPA, DLDL, CON, LIPID, T7, CMP, TSH #### [facility] [address] [place] [address] Dr. Delmer Rea Cholesterol [Mass/Vol] 238 mg/dL Critically high <=200 [facility] Comment on above: Performed By: #### L IPA, DLDL, CON, LIPID, T7, CMP, TSH #### [facility] [address] [address] [address] Delmer Rea Cholesterol in HDL [Mass/Vol] 39 mg/dL Critically low 40-60 [facility] Comment on above: Performed By: #### L IPA, DLDL, CON, LIPID, T7, CMP, TSH #### [facility] [address] [address] [address] Delmer Rea Cholesterol.total/C holesterol in HDL [Mass ratio] 6.1 {ratio} Normal [facility] Comment on above: Performed By: #### L IPA, DLDL, CON, LIPID, T7, CMP, TSH #### [facility] [address] [address] [address] Delmer Rea HDL NORMAL > or = 60 mg/dl - LO W CARDIOVASCULAR RISK <40 mg/dl - HIGH CARDIOVASCULAR RISK Normal [facility] Comment on above: Performed By: #### L IPA, DLDL, CON, LIPID, T7, CMP, TSH #### [facility] [address] [address] [address] Delmer Rea LDL CALC NORMAL SEE BELOW Normal [facility] Comment on above: Result Comment: <100 mg/dl OPTIMAL 100 - 129 mg/dl NEAR OR ABOVE OPTIMAL 130 - 159 mg/dl BORDERLINE HIGH 160 - 189 mg/dl HIGH >190 mg/dl VERY HIGH Performed By: #### L IPA, DLDL, CON, LIPID, T7, CMP, TSH #### [facility] [address] [address] [address] Delmer Rea Triglyceride [Mass/Vol] 579 mg/dL Critically high <=150 The [facility] Comment on above: Performed By: #### L IPA, DLDL, CON, LIPID, T7, CMP, TSH #### [facility] [address] [address] [address] Delmer Rea VLDL CALC 115.8 mg/dL Normal [facility] Comment on above: Performed By: #### L IPA, DLDL, CON, LIPID, T7, CMP, TSH #### [facility] [address] [place] [address] Dr. Delmer Rea PROF 14(COMP METB)on 023 Albumin [Mass/Vol] 3.5 g/dL Normal 3.4-5.0 [facility] Comment on above: Performed By: #### L IPA, DLDL, CON, LIPID, T7, CMP, TSH #### [facility] [address] [place] [address] Dr. Delmer Rea Albumin/Globulin [Mass ratio] 0.8 {ratio} Normal [facility] Comment on above: Performed By: #### L IPA, DLDL, CON, LIPID, T7, CMP, TSH #### [facility] [address] [address] [address] Delmer Rea ALP [Catalytic activity/Vol] 110 U/L Normal 46-116 [facility] Comment on above: Performed By: #### L IPA, DLDL, CON, LIPID, T7, CMP, TSH #### [facility] [address] [place] [address] Dr. Delmer Rea ALT [Catalytic activity/Vol] 19 U/L Normal 14-59 [facility] Comment on above: Performed By: #### L IPA, DLDL, CON, LIPID, T7, CMP, TSH #### [facility] [address] [address] [address] Delmer Rea Anion gap [Moles/Vol] 17.0 mmol/L Normal [facility] Comment on above: Performed By: #### L IPA, DLDL, CON, LIPID, T7, CMP, TSH #### [facility] [address] [place] [address] Dr. Delmer Rea AST [Catalytic activity/Vol] 13 U/L Critically low 15-37 [facility] Comment on above: Performed By: #### L IPA, DLDL, CON, LIPID, T7, CMP, TSH #### [facility] [address] [place] [address] Dr. Delmer Rea Bilirubin [Mass/Vol] 0.3 mg/dL Normal 0.2-1.0 [facility] Comment on above: Performed By: #### L IPA, DLDL, CON, LIPID, T7, CMP, TSH #### [facility] [address] [place] [address] Dr. Delmer Rea Calcium [Mass/Vol] 9.6 mg/dL Normal 8.5-10.1 [facility] Comment on above: Performed By: #### L IPA, DLDL, CON, LIPID, T7, CMP, TSH #### [facility] [address] [place] [address] Dr. Delmer Rea Chloride [Moles/Vol] 104 mmol/L Normal 98-107 [facility] Comment on above: Performed By: #### L IPA, DLDL, CON, LIPID, T7, CMP, TSH #### [facility] [address] [place] [address] Dr. Delmer Rea CO2 [Moles/Vol] 22.7 mmol/L Normal 21.0-32.0 [facility] Comment on above: Performed By: #### L IPA, DLDL, CON, LIPID, T7, CMP, TSH #### [facility] [address] [place] [address] Dr. Delemr Rea Creatinine [Mass/Vol] 2.15 mg/dL Critically high 0.55-1.02 [facility] Comment on above: Performed By: #### L IPA, DLDL, CON, LIPID, T7, CMP, TSH #### [facility] [address] [place] [address] Dr. Delmer Rea EGFR-AF GUATEMALAN 29 mL/min/1.73m2 Critically low >=60 [facility] Comment on above: Performed By: #### L IPA, DLDL, CON, LIPID, T7, CMP, TSH #### [facility] [address] [place] [address] Dr. Delmer Rea EGFR-NON AF GUATEMALAN 24 mL/min/1.73m2 Critically low >=60 [facility] Comment on above: Performed By: #### L IPA, DLDL, CON, LIPID, T7, CMP, TSH #### [facility] [address] [place] [address] Dr. Delmer Rea Globulin (S) [Mass/Vol] 4.3 g/dL Normal [facility] Comment on above: Performed By: #### L IPA, DLDL, CON, LIPID, T7, CMP, TSH #### [facility] [address] [place] [address] Dr. Delmer Rea Glucose [Mass/Vol] 189 mg/dL Critically high 74-106 [facility] Comment on above: Performed By: #### L IPA, DLDL, CON, LIPID, T7, CMP, TSH #### [facility] [address] [place] [address] Dr. Delmer Rea Potassium [Moles/Vol] 4.7 mmol/L Normal 3.5-5.1 [facility] Comment on above: Performed By: #### L IPA, DLDL, CON, LIPID, T7, CMP, TSH #### [facility] [address] [place] [address] Dr. Delmer Rea Protein [Mass/Vol] 7.8 g/dL Normal 6.4-8.2 [facility] Comment on above: Performed By: #### L IPA, DLDL, CON, LIPID, T7, CMP, TSH #### [facility] [address] [address] [address] Delmer Rea Sodium [Moles/Vol] 139 mmol/L Normal 136-145 [facility] Comment on above: Performed By: #### L IPA, DLDL, CON, LIPID, T7, CMP, TSH #### [facility] [address] [address] [address] Delmer Rea Urea nitrogen [Mass/Vol] 48.0 mg/dL Critically high 7.0-18.0 [facility] Comment on above: Performed By: #### L IPA, DLDL, CON, LIPID, T7, CMP, TSH #### [facility] [address] [address] [address] Delmer Rea Urea nitrogen/Creatinine [Mass ratio] 22.3 mg/mg Normal [facility] Comment on above: Performed By: #### L IPA, DLDL, CON, LIPID, T7, CMP, TSH #### [facility] [address] [place] [address] Dr. Delmer Rea TSHon 11-25-2022 TSH 0.063 uIU/mL Critically low 0.358-3.740 [facility] Comment on above: Performed By: #### L IPA, DLDL, CON, LIPID, T7, CMP, TSH #### [facility] [address] [place] [address] Dr. Delmer Rea Letter (Out)on 11-18-2022 Letter (Out) [id number] Booker Thompson 1970 F Date Provider Department Center 11/18/2022 None-None [facility] No family history on file [facility] Follow-Upon 11-11-2022 Follow-Up [id number] Booker Thompson 1970 Date Provider Department Center 11/11/2022 [address] TXP None No family history on file Level of Service:07604 MS POSTOP FOLLOW UP VISIT RELATED TO ORIGINAL PX Reason for Visit and Comments: Follow-up [924059] - Patient reports she never can tell when she has to pee lately, her stomach is still sore. Normal [facility] BASIC METABOLIC PANELon 12-2 -2021 Anion gap [Moles/Vol] 13 mmol/L Normal 7-20 [facility] Comment on above: Performed By: #### L [id number] ####[facility] (BEAKER)[address] [place] [address] Calcium [Mass/Vol] 8.3 mg/dL Low 8.6-10.3 [facility] Comment on above: Performed By: #### L [id number] ####[facility] (BEAKER)[address] [place] [address] Chloride [Moles/Vol] 100 mmol/L Normal 98-107 [facility] Comment on above: Performed By: #### L [id number] ####[facility] (BEAKER)[address] [place] [address] CO2 [Moles/Vol] 21 mmol/L Normal 21-31 [facility] Comment on above: Performed By: #### L [id number] ####[facility] (BEAKER)[address] [place] [address] Creatinine [Mass/Vol] 1.56 mg/dL High 0.60-1.20 [facility] Comment on above: Performed By: #### L [id number] ####[facility] (BEAKER)[address] [place] [address] GLOMERULAR FILTRATION RATE ML/MIN/1.73 SQ M.PREDICTED 38.2 mL/min/1.73m*2 Low >60.0 [facility] [place] Comment on above: Result Comment: The [facility]???s estimated glomerular filtration rate (eGFR) will [...] of individuals. Performed By: #### L [id number] ####[facility] (BEAKER)[address] [place] [address] Glucose [Mass/Vol] 285 mg/dL High 70-100 [facility] Comment on above: Performed By: #### L [id number] ####[facility] ([facility] [place] [address] Potassium [Moles/Vol] 5.1 mmol/L Normal 3.5-5.1 [facility] Comment on above: Performed By: #### L [id number] ####[facility] ([facility] [place] [address] Sodium [Moles/Vol] 134 mmol/L Low 136-145 [facility] Comment on above: Performed By: #### L [id number] ####[facility] ([facility])[address] [place] [address] Urea nitrogen [Mass/Vol] 25 mg/dL Normal 7-25 [facility] Comment on above: Performed By: #### L [id number] ####[facility] ([facility])[address] [place] [address] UREA NITROGEN/CREATININE (MASS RATIO) IN SER/PLAS 16.03 Normal [facility] Comment on above: Performed By: #### L [id number] ####[facility] ([facility])[address] [place] [address] CBCon 10-27-2022 Erythrocyte distribution width (RBC) [Ratio] 13.2 % Normal 11.5-15.0 [facility] Comment on above: Performed By: #### L [id number] ####[facility] ([facility])[address] [place] [address] ERYTHROCYTE MEAN CORPUSCULAR HEMOGLOBIN CONCENTRATION (G/DL) BY AUTOMATED 33.3 g/dL Normal 32.0-35.0 [facility] Comment on above: Performed By: #### L [id number] ####[facility] (BEAKER)[address] [place] [address] Hematocrit (Bld) [Volume fraction] 28.8 % Low 36.0-48.0 [facility] Comment on above: Performed By: #### L [id number] ####[facility] ([facility])[address] [address] Hemoglobin (Bld) [Mass/Vol] 9.6 g/dL Low 12.0-15.0 [facility] Comment on above: Performed By: #### L [id number] ####[facility] ([facility])[address] [place] [address] MCH (RBC) [Entitic mass] 28.1 pg Normal 27.0-33.0 [facility] Comment on above: Performed By: #### L [id number] ####[facility] ([facility])[address] [place] [address] MCV (RBC) [Entitic vol] 84.2 fL Normal 82.0-98.0 [facility] Comment on above: Performed By: #### L [id number] ####[facility] ([facility])[address] [place] [address] PLATELETS (10*3/UL) IN BLOOD AUTOMATED COUNT 283 10*3/uL Normal 150-400 [facility] Comment on above: Performed By: #### L [id number] ####[facility] ([facility])[address] [place] [address] RBC (Bld) [#/Vol] 3.42 10*6/uL Low 3.80-5.00 [facility] Comment on above: Performed By: #### L [id number] ####[facility] ([facility])[address] [place] [address] WBC (Bld) [#/Vol] 11.07 10*3/uL High 4.00-10.60 [facility] Comment on above: Performed By: #### L [id number] ####[facility] (BEAKER)[address] [place] [address] DSon 10-27-2022 DS ---- -------- Attestation signed [...] Abnormal Calci (more content not included)... Normal [facility] MAGNESIUMon 10-27-2022 Magnesium [Mass/Vol] 1.1 mg/dL Low 1.9-2.7 [facility] Comment on above: Performed By: #### L [id number] ####[facility] ([employer])[address] [place] [address] PHOSPHORUSon 10-27-2022 Magnesium [Mass/Vol] 3.4 mg/dL Normal 2.5-5.0 [facility] Comment on above: Performed By: #### L [id number] ####[facility] (BEMister Mario)[address] [place] [address] POCT GLUCOSE METER UNSOLICIT ED RESULTSon 10-27-2022 Glucose [Mass/Vol] 301 mg/dL High 70-105 [facility] Comment on above: Result Comment: gcul kow Performed By: #### L [id number] ####[facility] ([facility]AKER)[address] [place] [address] Glucose [Mass/Vol] 274 mg/dL High 70-105 [facility] Comment on above: Result Comment: gcul kow Performed By: #### L [id number] ####[facility] (BEAKER)[address] [place] [address] 29on 10-26-2022 29 Addendum created 10/26/221953 by Kesha Fernandez DO Clinical Note Signed, SmartForm saved Normal [facility] ARTERIAL BLOOD GAS WITH CO-O XIMETRYon 10-26-2022 Base excess Calc (Bld) [Moles/Vol] -5.1000 mmol/L Low -2.0-3.0 [facility] Comment on above: Performed By: #### L [id number] ####[facility] [id number] [place] [address] [facility] CARBOXYHEMOGLOBIN/H EMOGLOBIN TOTAL % IN BLOOD 1.4 % Normal 0.0-3.0 [facility] Comment on above: Performed By: #### L [id number] ####[facility] [id number] [place] [address] [facility] CO2 (Bld) [Partial pressure] 40 mm[Hg] Normal 35-48 [facility] Comment on above: Performed By: #### L [id number] ####[facility] [id number] [facility] [place] [address] [place] DEOXYGENATED HEMOGLOBIN IN BLOOD 0 % Low 1-5 [facility] [facility] [place] Comment on above: Performed By: #### L [id number] ####[facility] RESPIRATORY [id number] [facility] [place] [address] [place] HCO3 (Bld) [Moles/Vol] 20.6 mmol/L Low 21.0-28.0 [facility] Comment on above: Performed By: #### L [id number] ####[facility] RESPIRATORY [id number] [facility] [place] [address] [place] Hemoglobin (Bld) [Mass/Vol] 10.8 g/dL Low 11.7-17.4 [facility] Comment on above: Performed By: #### L [id number] ####[facility] RESPIRATORY [id number] [place] [id number] [facility] METHEMOGLOBIN/100 IN BLOOD 1.5 % Normal 0.0-1.5 [facility] Comment on above: Performed By: #### L [id number] ####[facility] RESPIRATORY [id number] [place], [place] [address] Oxygen (Bld) [Partial pressure] 202 mm[Hg] High 83-100 [facility] Comment on above: Performed By: #### L [id number] ####[facility] RESPIRATORY [id number] [place], [place] [address] OXYGEN SATURATION (%) IN ARTERIAL BLOOD 100.0 % High 94.0-98.0 [facility] Comment on above: Performed By: #### L [id number] ####[facility] RESPIRATORY [id number] [place] [address] OXYGENATED HEMOGLOBIN IN BLOOD 97.1 % High 90.0-95.0 [facility] [place] Comment on above: Performed By: #### L [id number] ####[facility] RESPIRATORY [id number] [place], [place] [address] pH (Bld) 7.32 [pH] Low 7.35-7.45 [facility] Comment on above: Performed By: #### L [id number] ####[facility] RESPIRATORY [id number] [place], [place] [address] SOURCE OF OXYGEN Vent Normal [facility] Comment on above: Performed By: #### L [id number] ####[facility] RESPIRATORY [id number] [place] [address] [facility] Base excess Calc (Bld) [Moles/Vol] -3.2000 mmol/L Low -2.0-3.0 [facility] Comment on above: Performed By: #### L [id number] ####[facility] RESPIRATORY [id number] [place] [address] CARBOXYHEMOGLOBIN/H EMOGLOBIN TOTAL % IN BLOOD 1.0 % Normal 0.0-3.0 [facility] Comment on above: Performed By: #### L [id number] ####[facility] RESPIRATORY [id number] [place] [address] [facility] CO2 (Bld) [Partial pressure] 34 mm[Hg] Low 35-48 [facility] Comment on above: Performed By: #### L [id number] ####[facility] RESPIRATORY [id number] [place] [address] [facility] DEOXYGENATED HEMOGLOBIN IN BLOOD 0.7 % Low 1-5 [facility] [place] Comment on above: Performed By: #### L [id number] ####[facility] RESPIRATORY [id number] [place] [address] [facility] HCO3 (Bld) [Moles/Vol] 21.1 mmol/L Normal 21.0-28.0 [facility] Comment on above: Performed By: #### L [id number] ####[facility] RESPIRATORY [id number] [place] [address] [facility] Hemoglobin (Bld) [Mass/Vol] 9.4 g/dL Low 11.7-17.4 [facility] Comment on above: Performed By: #### L [id number] ####[facility] RESPIRATORY [id number] [place] [address] [facility] METHEMOGLOBIN/100 IN BLOOD 1.1 % Normal 0.0-1.5 [facility] Comment on above: Performed By: #### L [id number] ####[facility] RESPIRATORY [id number] [place] [address] [facility] Oxygen (Bld) [Partial pressure] 197 mm[Hg] High 83-100 [facility] Comment on above: Performed By: #### L [id number] ####[facility] RESPIRATORY [id number] [place] [address] [place] OXYGEN SATURATION (%) IN ARTERIAL BLOOD 99.3 % High 94.0-98.0 [facility] Comment on above: Performed By: #### L [id number] ####[facility] RESPIRATORY [id number] [place] [address] [facility] OXYGENATED HEMOGLOBIN IN BLOOD 97.3 % High 90.0-95.0 [facility] [place] Comment on above: Performed By: #### L [id number] ####[facility] RESPIRATORY [id number] [place] [address] [place] pH (Bld) 7.40 [pH] Normal 7.35-7.45 [facility] Comment on above: Performed By: #### L [id number] ####[facility] RESPIRATORY [id number] [place] [address] [place] SOURCE OF OXYGEN Vent Normal [facility] Comment on above: Performed By: #### L [id number] ####[facility] RESPIRATORY [id number] [place] [address] [facility] Anesthesiaon 10-26-2022 Anesthesia [id number] Booker Thompson 1970 Date Provider Department Center 10/26/2022 KESHA REYES [facility] OR [facility] No family history on file Normal [facility] BASIC METABOLIC PANELon 12-2 Anion gap [Moles/Vol] 12 mmol/L Normal 7-20 [facility] Comment on above: Performed By: #### L [id number] ####[facility] HOSPITAL LAB (BEAKER)[address] [place] [address] Calcium [Mass/Vol] 8.3 mg/dL Low 8.6-10.3 [facility] Comment on above: Performed By: #### L [id number] ####[facility] HOSPITAL LAB (BEAKER)[address] [place] [address] Chloride [Moles/Vol] 107 mmol/L Normal 98-107 [facility] Comment on above: Performed By: #### L [id number] ####[facility] HOSPITAL LAB (BEAKER)[address] [place] [address] CO2 [Moles/Vol] 20 mmol/L Low 21-31 [facility] Comment on above: Performed By: #### L [id number] ####[facility] LAB ([facility])[address] [place] [address] Creatinine [Mass/Vol] 1.38 mg/dL High 0.60-1.20 [facility] Comment on above: Performed By: #### L [id number] ####[facility] LAB ([facility])[address] [place] [address] GLOMERULAR FILTRATION RATE ML/MIN/1.73 SQ M.PREDICTED 44.3 mL/min/1.73m*2 Low >60.0 [facility] [place] Comment on above: Result Comment: [facility]???s estimated glomerular filtration rate (eGFR) will [...] of individuals. Performed By: #### L [id number] ####[facility] LAB ([facility])[address] [place] [address] Glucose [Mass/Vol] 177 mg/dL High 70-100 [facility] Comment on above: Performed By: #### L [id number] ####[facility] LAB ([facility])[address] [place] [address] Potassium [Moles/Vol] 4.4 mmol/L Normal 3.5-5.1 [facility] Comment on above: Performed By: #### L [id number] ####[facility] LAB ([facility])[address] [place] [address] Sodium [Moles/Vol] 139 mmol/L Normal 136-145 [facility] Comment on above: Performed By: #### L [id number] ####[facility] LAB ([facility])[address] [place] [address] Urea nitrogen [Mass/Vol] 23 mg/dL Normal 7-25 [facility] Comment on above: Performed By: #### L [id number] ####[facility] LAB (BEAKER)[address] [place] [address] UREA NITROGEN/CREATININE (MASS RATIO) IN SER/PLAS 16.67 Normal [facility] Comment on above: Performed By: #### L [id number] ####[facility] LAB (BEAKER)[address] [place] [address] CALCIUM, IONIZEDon CALCIUM IONIZED (MMOL/L) IN BLOOD 1.08 mmol/L Low 1.15-1.33 [facility] Comment on above: Performed By: #### C ALCIUM, IONIZED ####[facility] RESPIRATORY [id number] [place] [address] [facility] CALCIUM IONIZED (MMOL/L) IN BLOOD 1.14 mmol/L Low 1.15-1.33 [facility] Comment on above: Performed By: #### C ALCIUM, IONIZED ####[facility] RESPIRATORY [id number] [place] [address] [facility] CBCon 10-26-2022 Erythrocyte distribution width (RBC) [Ratio] 13.2 % Normal 11.5-15.0 [facility] Comment on above: Performed By: #### L [id number] ####[facility] LAB (BEAKER)[address] [place] [address] ERYTHROCYTE MEAN CORPUSCULAR HEMOGLOBIN CONCENTRATION (G/DL) BY AUTOMATED 32.1 g/dL Normal 32.0-35.0 [facility] [place] Comment on above: Performed By: #### L [id number] ####[facility] LAB (BEAKER)[address] [place] [address] Hematocrit (Bld) [Volume fraction] 29.9 % Low 36.0-48.0 [facility] Comment on above: Performed By: #### L [id number] ####[facility] LAB (BEAKER)[address] [place] [address] Hemoglobin (Bld) [Mass/Vol] 9.6 g/dL Low 12.0-15.0 [facility] Comment on above: Performed By: #### L [id number] ####[facility] LAB (BEAKER)[address] [place] [address] MCH (RBC) [Entitic mass] 27.6 pg Normal 27.0-33.0 [facility] Comment on above: Performed By: #### L [id number] ####[facility] LAB (BEAKER)[address] [place] [address] MCV (RBC) [Entitic vol] 85.9 fL Normal 82.0-98.0 [facility] Comment on above: Performed By: #### L [id number] ####[facility] ([facility])[address] [place] [address] PLATELETS (10*3/UL) IN BLOOD AUTOMATED COUNT 290 10*3/uL Normal 150-400 [facility] Comment on above: Performed By: #### L [id number] ####[facility] LAB ([facility])[address] [place] [address] RBC (Bld) [#/Vol] 3.48 10*6/uL Low 3.80-5.00 [facility] Comment on above: Performed By: #### L [id number] ####[facility] LAB ([facility])[address] [place] [address] WBC (Bld) [#/Vol] 10.81 10*3/uL High 4.00-10.60 [facility] Comment on above: Performed By: #### L [id number] ####[facility] LAB ([facility])[address] [place] [address] HISTOLOGY - TISSUE EXAMon LAB AP CASE REPORT Normal [facility] Comment on above: Order Comment: Pre-o p diagnosis: Atrophic kidney [N26.1] Result Comment: Surg ical Pathology Case: [id number] Authorizing Provider: Castillo Almeida MD Collected: 10/26/2022 1321 Ordering Location: [facility] Main Operating Room Received: 10/26/2022 1424 Pathologist: Natalia Macias MD Specimen: Kidney, 1. left kidney Performed By: #### L [id number] #### [facility] LAB (BEAKER) [address] [place] [place] [address] LAB AP CLINICAL INFORMATION Normal [facility] Comment on above: Order Comment: Pre-o p diagnosis: Atrophic kidney [N26.1] Result Comment: Pre- op diagnosis: Atrophic kidney [N26.1] Performed By: #### L [id number] #### [facility] LAB (BEAKER) [address] [address] LAB AP GROSS DESCRIPTION A. Kidney. Normal [facility] Comment on above: Order Comment: Pre-o [...] x 0.4 cm. Gross photographs are taken. Director Of Land Acquisition sections are submitted as follows: 1 vascular margins, en face and ureteral margin, en face 2 upper pole of kidney 3 mid kidney with sinus fat 4 lower pole of kidney with capsule and perinephric fat 5 renal pelvis underlying stones 6 area surrounding stent 7 possible cyst and parenchyma to pelvis 8 Gerota's fascia 9 possible lymph nodes Edith Jay, Pathologists' Finance Teacher Student Performed By: #### L [id number] #### [facility] LAB ([facility]) [address] [facility] [address] LAB AP MICROSCOPIC DESCRIPTION Microscopic examination performed. [facility] Comment on above: Order Comment: Pre-o p diagnosis: Atrophic kidney [N26.1] Performed By: #### L [id number] #### [facility] LAB ([facility]) [address] [place] [address] LAB AP REPORT FINAL DIAGNOSIS NARRATIVE [facility] Comment on above: Order Comment: Pre-o [...] (gross examination only) Performed By: #### L [id number] #### [facility] LAB ([facility]) [address] [place] [address] HPon 10-26-2022 HP ---- -------- Attestation signed [...] of left kidney, CVA (cerebral vascular accident) ([facility]) (2021), Diabetes mellitus ([facility]), and Kidney stone. Surgical History [...] N.p.o. Consent Left nephrectomy robotic assisted Normal [facility] NURSNOTEon 10-26-2022 NURSNOTE Report called to [facility]. [facility] at bedsid e with spouse. Normal [facility] OPNOTEon 10-26-2022 OPNOTE ---- -------- Attestation signed by Castillo Almeida MD at 10/29/2022 1:39 PM I was present for the entirety of the procedure(s). Castillo Almeida MD -------- NEPHRECTOMY, ROBOT-ASSISTED (L) Operative Note Date: 10/26/2022 Location: [facility] OR Name: Asa Thompson, : 1970, Diagnosis [...] Castillo Almeida MD 10/26/22 1321 No Routine [id number] Description: 1. left kidney Staff: Ent Surgeon: Carlyn Harrison RN; Aime Burks RN Relief Scrub: Zan Reyes, ASSEMBLY INSTRUCTIONS WRITER Scrub Person: Loida Solorio CST Risk And Insurance Consultant: Meghan Lee CSA Orientee Ent Surgeon: Jeannine Ascencio Orientsanjiv Scrub: Nubia Kebede Indications: Asa Thompson is [...] was pr (more content not included)... Normal [facility] POCT GLUCOSE METER UNSOLICIT ED RESULTSon 10-26-2022 Glucose [Mass/Vol] 209 mg/dL High 70-105 [facility] Comment on above: Result Comment: sabino barry Performed By: #### L [id number] ####[facility] HOSPITAL LAB (BEAKER)[address] [place] [address] Glucose [Mass/Vol] 143 mg/dL High 70-105 [facility] Comment on above: Result Comment: czyd orc Performed By: #### L [id number] ####[facility] LAB ([facility])[address] [place] [address] Glucose [Mass/Vol] 146 mg/dL High 70-105 [facility] Comment on above: Result Comment: eileen [email or web address] Performed By: #### L [id number] ####[facility] LAB ([facility])[address] [place] [address] Glucose [Mass/Vol] 135 mg/dL High 70-105 [facility] Comment on above: Result Comment: shamartal [email or web address] Performed By: #### L [id number] ####[facility] LAB ([facility])[address] [place] [address] Glucose [Mass/Vol] 139 mg/dL High 70-105 [facility] Comment on above: Result Comment: shamartal [email or web address] Performed By: #### L [id number] ####[facility] LAB ([facility])[address] [place] [address] Glucose [Mass/Vol] 102 mg/dL Normal 70-105 [facility] Comment on above: Result Comment: eileen [email or web address] Performed By: #### L [id number] ####[facility] LAB ([facility])[address] [place] [address] Glucose [Mass/Vol] 165 mg/dL High 70-105 [facility] Comment on above: Result Comment: [address] Performed By: #### L [id number] ####[facility] LAB ([facility])[address] [place] [address] POCT SARS-COV-2 PCRon 2021 POC SARS-COV-2 ANTIGEN Negative Normal Negative [facility] Comment on above: Result Comment: ID [...] Certificate of Accreditation. Performed By: #### L [id number] ####[facility] HOSPITAL LAB (BEAKER)[address] [place] [address] POTASSIUM, WHOLE BLOODon Potassium [Moles/Vol] 3.4 mmol/L Low 3.5-5.1 [facility] Comment on above: Performed By: #### P OTASSIUM, WHOLE BLOOD ####[facility] RESPIRATORY [id number] [place] [address] [place] Potassium [Moles/Vol] 3.4 mmol/L Low 3.5-5.1 [facility] Comment on above: Performed By: #### P OTASSIUM, WHOLE BLOOD ####[facility] RESPIRATORY [id number] [place] [address] [place] SODIUM, WHOLE BLOODon 2021 SODIUM, WHOLE BLOOD 138 Normal 136-145 Un[facility] Comment on above: Performed By: #### S ODIUM, WHOLE BLOOD ####[facility] RESPIRATORY [id number] [place] [address] [place] SODIUM, WHOLE BLOOD 140 Normal 136-145 [facility] Comment on above: Performed By: #### S ODIUM, WHOLE BLOOD ####[facility] RESPIRATORY [id number] [place] [address] [place] TYPE AND SCREENon 10-26-2022 AB SCREEN Negative Normal [facility] Comment on above: Performed By: #### L [id number] ####[facility] BLOOD BANK, ABO group Nom (Bld) A Normal [facility] Comment on above: Performed By: #### L [id number] ####[facility] BLOOD BANK, RH TYPE IN BLOOD Positive Normal [facility] Comment on above: Performed By: #### L [id number] ####[facility] BLOOD BANK, URINE CULTURE, ROUTINEon Ampicillin [Susc] 1 ug/ml Susceptible [facility] Comment on above: Performed By: #### L [id number] #### [facility] HOSPITAL LAB (BEAKER) [address] [place] [place] [address] Nitrofurantoin [Susc] <=16 Susceptible [facility] Comment on above: Performed By: #### L [id number] #### [facility] LAB (BEAKER) [address] [place] [place] [address] Vancomycin [Susc] 2 ug/ml Susceptible [facility] Comment on above: Performed By: #### L [id number] #### [facility] LAB (BEAKER) [address] [place] [place] [address] Letter (Out)on 10-18-2022 Letter (Out) [id number] Booker Thompson 1970 F Date Provider Department [place] 10/18/2022 None-None [facility] ADMIT [facility] No family history on file [facility] Letter (Out)on 10-14-2022 Letter (Out) [id number] Booker Thompson 1970 F Date Provider Department [place] 10/14/2022 None-None [facility] No family history on file [facility] Orders Onlyon 10-14-2022 Orders Only [id number] Booker Thompson 1970 F Date Provider Department [place] 10/14/2022 3561-NUBIA LOZANO [facility] None No family history on file [facility] 29on 10-13-2022 29 Addended by: NUBIA LOZANO on: 10/14/2022 10:21 AM Modules accepted: Orders Normal [facility] APTTon 10-13-2022 ACTIVATED PARTIAL THROMBOPLASTIN TIME IN PPP BY COAGULATION ASSAY 28.4 Seconds Normal 25.0-35.0 [facility] Comment on above: Performed By: #### L [id number] ####[facility] LAB (BEAKER)[address] [place] [address] Follow-Upon 10-13-2022 Follow-Up [id number] Booker Thompson Jyotsna 1970 F Date Provider Department Center 10/13/2022 Cristian1NUBIA SARKAR [facility] None No family history on file Level of Service:50112 MS OFFICE/OUTPATIENT ESTABLISHED LOW MDM 20-29 MIN Reason for Visit and Comments: Pre-op Exam [[id number]] - Patient has a few questions about procedure, bleedig afterwards etc Normal [facility] PROTIME-INRon 10-13-2022 INR IN PPP BY COAGULATION ASSAY 0.99 Normal 0.90-1.10 [facility] Comment on above: Result Comment: ACCC [...] CHEST 1995;[id number]. Performed By: #### L [id number] ####[facility] LAB (BEAKER)[address] [place] [address] PROTHROMBIN TIME (PT) IN PPP BY COAGULATION ASSAY 13.1 Seconds Normal 12.3-14.8 [facility] Comment on above: Performed By: #### L [id number] ####[facility] LAB (BEAKER)[address] [place] [address] Letter (Out)on 10-11-2022 Letter (Out) [id number] Booker Thompson 1970 F Date Provider Department Center 10/11/2022 None-None [facility] AUTH [facility] No family history on file [facility] 36on 10-04-[address] [...] malodorous and cloudy urine. Fluconazole prescribed. Normal [facility] Telephoneon 10-04-2022 Telephone [id number] Booker Thompson 1970 F Provider Department [place] 10/04/2022 CristianMaya-NUBIA HYMAN [facility] No family history on file [facility] 36on 09-27-2022 36 Left detailed voicem ail that patients surgery with Obi is scheduled 10/26/22 here is the main Normal [facility] APTTon 09-27-2022 ACTIVATED PARTIAL THROMBOPLASTIN TIME IN PPP BY COAGULATION ASSAY 28.0 Seconds Normal 25.0-35.0 [facility] Comment on above: Performed By: #### L [id number] ####[facility] HOSPITAL LAB (BEAKER)[address] [place] [address] BASIC METABOLIC PANELon 09-07 Anion gap [Moles/Vol] 12 mmol/L Normal 7-20 [facility] Comment on above: Performed By: #### L AB15 ####[facility] LAB (BEAKER)[address] [place] [address] Calcium [Mass/Vol] 9.3 mg/dL Normal 8.6-10.3 [facility] Comment on above: Performed By: #### L AB15 ####[facility] LAB (BEAKER)[address] [place] [place] [address] Chloride [Moles/Vol] 104 mmol/L Normal 98-107 [facility] Comment on above: Performed By: #### L AB15 ####[facility] LAB (BEAKER)[address] [place] [place] [address] CO2 [Moles/Vol] 22 mmol/L Normal 21-31 [facility] Comment on above: Performed By: #### L AB15 ####[facility] LAB ([facility] [place] [address] Creatinine [Mass/Vol] 1.35 mg/dL High 0.60-1.20 [facility] Comment on above: Performed By: #### L AB15 ####[facility] LAB ([facility])[address] [place] [address] GLOMERULAR FILTRATION RATE ML/MIN/1.73 SQ M.PREDICTED 45.5 mL/min/1.73m*2 Low >60.0 [facility] [place] Comment on above: Result Comment: [facility]???s estimated glomerular filtration rate (eGFR) will [...] of individuals. Performed By: #### L AB15 ####[facility] LAB (BEAKER)[address] [place] [address] Glucose [Mass/Vol] 268 mg/dL High 70-100 [facility] Comment on above: Performed By: #### L [id number] ####[facility] LAB (BEAKER)[address] [address] Potassium [Moles/Vol] 4.7 mmol/L Normal 3.5-5.1 [facility] Comment on above: Performed By: #### L AB15 ####[facility] LAB ([facility])[address] [place] [address] Sodium [Moles/Vol] 138 mmol/L Normal 136-145 [facility] Comment on above: Performed By: #### L AB15 ####[facility] LAB ([facility])[address] [place] [address] Urea nitrogen [Mass/Vol] 29 mg/dL High 7-25 [facility] Comment on above: Performed By: #### L [id number] ####[facility] LAB ([facility])[address] [place] [address] UREA NITROGEN/CREATININE (MASS RATIO) IN SER/PLAS 21.48 Normal [facility] Comment on above: Performed By: #### L [id number] ####[facility] LAB ([facility])[address] [address] CBC WITH AUTO DIFFERENTIALon 09-27-2022 Basophils (Bld) [#/Vol] 0.03 10*3/uL Normal 0.00-0.20 [facility] Comment on above: Performed By: #### L [id number] #### [facility] LAB ([facility]) [address] [place] [address] Basophils/100 WBC (Bld) 0.4 % Normal 0.0-1.0 [facility] Comment on above: Performed By: #### L [id number] #### [facility] ([facility] [address] [place] [address] Eosinophils (Bld) [#/Vol] 0.20 10*3/uL Normal 0.00-0.50 [facility] Comment on above: Performed By: #### L [id number] #### [facility] ([facility]) [address] [place] [address] Eosinophils/100 WBC (Bld) 2.9 % Normal 0.0-6.0 [facility] Comment on above: Performed By: #### L [id number] #### [facility] ([facility]) [address] [place] [address] ERYTHROCYTE DISTRIBUTION WIDTH (RATIO) STANDARD DEVIATION 37.1 Normal [facility] Comment on above: Performed By: #### L [id number] #### [facility] ([facility]) [address] [place] [address] Erythrocyte distribution width (RBC) [Ratio] 12.3 % Normal 11.5-15.0 [facility] Comment on above: Performed By: #### L [id number] #### [facility] ([facility]) [address] [place] [address] ERYTHROCYTE MEAN CORPUSCULAR HEMOGLOBIN CONCENTRATION (G/DL) BY AUTOMATED 33.0 g/dL Normal 32.0-35.0 [facility] [place] Comment on above: Performed By: #### L [id number] #### [facility] ([facility]) [address] [place] [address] Hematocrit (Bld) [Volume fraction] 37.3 % Normal 36.0-48.0 [facility] Comment on above: Performed By: #### L [id number] #### [facility] ([facility]) [address] [place] [address] Hemoglobin (Bld) [Mass/Vol] 12.3 g/dL Normal 12.0-15.0 [facility] Comment on above: Performed By: #### L [id number] #### [facility] ([facility]) [address] [place] [address] Immature granulocytes (Bld) [#/Vol] 0.03 10*3/uL Normal 0.00-0.20 [facility] Comment on above: Performed By: #### L [id number] #### [facility] ([facility]) [address] [place] [address] Immature granulocytes/100 WBC (Bld) 0.4 % Normal 0.0-1.0 [facility] Comment on above: Performed By: #### L [id number] #### [facility] ([facility]) [address] [place] [address] Lymphocytes (Bld) [#/Vol] 1.64 10*3/uL Normal 1.20-4.00 [facility] Comment on above: Performed By: #### L [id number] #### [facility] ([facility]) [address] [place] [address] Lymphocytes/100 WBC (Bld) 24.0 % Normal 20.0-45.0 [facility] Comment on above: Performed By: #### L [id number] #### [facility] ([facility]) [address] [place] [address] MCH (RBC) [Entitic mass] 27.4 pg Normal 27.0-33.0 [facility] Comment on above: Performed By: #### L [id number] #### [facility] ([facility]) [address] [place] [address] MCV (RBC) [Entitic vol] 83.1 fL Normal 82.0-98.0 [facility] Comment on above: Performed By: #### L [id number] #### [facility] ([facility]) [address] [place] [address] Monocytes (Bld) [#/Vol] 0.44 10*3/uL Normal 0.10-1.00 [facility] Comment on above: Performed By: #### L [id number] #### [facility] ([facility]) [address] [place] [address] Monocytes/100 WBC (Bld) 6.5 % Normal 5.0-12.0 [facility] Comment on above: Performed By: #### L [id number] #### [facility] ([facility]) [address] [place] [address] Neutrophils (Bld) [#/Vol] 4.48 10*3/uL Normal 1.60-7.60 [facility] Comment on above: Performed By: #### L [id number] #### [facility] ([facility]) [address] [place] [address] Neutrophils/100 WBC (Bld) 65.8 % Normal 40.0-72.0 [facility] Comment on above: Performed By: #### L [id number] #### [facility] ([facility]) [address] [place] [address] NRBC (PER 100 WBCS) BY AUTOMATED COUNT 0.0 % Normal 0.0-0.0 [facility] Comment on above: Performed By: #### L [id number] #### [facility] ([facility]) [address] [place] [address] PLATELETS (10*3/UL) IN BLOOD AUTOMATED COUNT 412 10*3/uL High 150-400 [facility] Comment on above: Performed By: #### L [id number] #### [facility] ([facility]) [address] [place] [address] RBC (Bld) [#/Vol] 4.49 10*6/uL Normal 3.80-5.00 [facility] Comment on above: Performed By: #### L [id number] #### [facility] ([facility]) [address] [place] [address] WBC (Bld) [#/Vol] 6.82 10*3/uL Normal 4.00-10.60 [facility] Comment on above: Performed By: #### L [id number] #### [facility] ([facility]) [address] [place] [address] Follow-Upon 09-27-2022 Follow-Up [id number] Booker Thompson 1970 F Date Provider Department Center 09/27/2022 3561-NUBIA HYMAN [facility] Second Fl No family history on file Level of Service:37387 MS OFFICE/OUTPATIENT ESTABLISHED HIGH MDM 40-54 MIN Normal [facility] PROTIME-INRon 09-27-2022 INR IN PPP BY COAGULATION ASSAY 0.93 Normal 0.90-1.10 [facility] Comment on above: Result Comment: ACCC [...] CHEST 1995;108:[id number]. Performed By: #### L [id number] ####[facility] ([facility])[address] [place] [address] PROTHROMBIN TIME (PT) IN PPP BY COAGULATION ASSAY 12.5 Seconds Normal 12.3-14.8 [facility] Comment on above: Performed By: #### L [id number] ####[facility] ([facility])[address] [place] [address] URINE CULTURE, ROUTINEon Bacteria identified Cx Nom (U) JAVI GLABRATA Abnormal [facility] Comment on above: Result Comment: 50,0 00 - 100,000 CFU/Ml Javi glabrata Performed By: #### L [id number] #### [facility] ([facility]) [address] [place] [address] CT ABDOMEN PELVIS WO IV CONT RASTon [...] this report. Electronically signed: Carlos Sue. Normal [facility] CULTURE URINEon 09-12-2022 CULTURE URINE Culture Observations : LIGHT GROWTH OF MIXED GENITAL JOSE. NO POTENTIAL PATHOGENS SEEN. Normal The [facility] Comment on above: Performed By: #### L IPA, DLDL, CON, LIPID, T7, CMP, TSH #### [facility] [address] [address] [address] Delmer Rea URINE MICROSCOPIC ONLYon BACTERIA MODERATE Abnormal NONE SEEN The [facility] Comment on above: Performed By: #### L IPA, DLDL, CON, LIPID, T7, CMP, TSH #### [facility] [address] [place], [place] [address] Dr. Delmer Rea Bacteria identified Cx Nom (U) CX ALREADY ORDERED Normal [facility] Comment on above: Performed By: #### L IPA, DLDL, CON, LIPID, T7, CMP, TSH #### [facility] [address] [place], [place] [address] Dr. Delmer Rea CAST NONE SEEN Normal NONE SEEN The [facility] Comment on above: Performed By: #### L IPA, DLDL, CON, LIPID, T7, CMP, TSH #### [facility] [address] [address] [address] Delmer Rea Crystals LM Nom (Urine sed) NONE SEEN Normal NONE SEEN The [facility] Comment on above: Performed By: #### L IPA, DLDL, CON, LIPID, T7, CMP, TSH #### [facility] [address] [address] [address] Delmer Rea Epithelial cells LM Ql (Urine sed) FEW Abnormal NONE SEEN /RARE The [facility] Comment on above: Performed By: #### L IPA, DLDL, CON, LIPID, T7, CMP, TSH #### [facility] [address] [place] [address] Dr. Delmer Rea MUCOUS NONE SEEN Normal NONE SEEN The [facility] Comment on above: Performed By: #### L IPA, DLDL, CON, LIPID, T7, CMP, TSH #### [facility] [address] [place] [address] Dr. Delmer Rea RBC 5-10 Abnormal 0-2 The [facility] Comment on above: Performed By: #### L IPA, DLDL, CON, LIPID, T7, CMP, TSH #### [facility] [address] [place] [address] Dr. Delmer Rea WBC (U) [#/Vol] /uL Abnormal NONE SEEN The [facility] Comment on above: Performed By: #### L IPA, DLDL, CON, LIPID, T7, CMP, TSH #### [facility] [address] [place] [address] Dr. Delmer Rea YEAST PRESENT Abnormal NONE SEEN The [facility] Comment on above: Performed By: #### L IPA, DLDL, CON, LIPID, T7, CMP, TSH #### [facility] [address] [place] [address] Dr. Delmer Rea Follow-Upon 08-18-2022 Follow-Up [id number] Booker Thompson 1970 F Date Provider Department Center 08/18/2022 CASTILLO WEBBER [facility] U[facility] Second Fl No family history on file Level of Service:42131 MS OFFICE/OUTPATIENT ESTABLISHED HIGH MDM 40-54 MIN Reason for Visit and Comments: Urolithiasis [539] - Patient reports she has no new symptoms wants stone removed. Normal [facility] Follow-Upon 08-17-2022 Follow-Up [id number] Booker Thompson 1970 F Date Provider Department Center 08/17/2022 3844-[facility]ALUTHER [facility] Second Fl No family history on file Level of Service:03566 MS OFFICE/OUTPATIENT NEW MODERATE MDM 45-59 MINUTES Reason for Visit and Comments: Nephrolithiasis [078088] - Patient states she has a neph tube because she has a kidney stone that is causing hyronephrosis. Patient would like the tube removed and her kidney stone removed. Normal [facility] NM KIDNEY W FLOW AND FUNCTIO [...] Akil Cummings MD 08/05/22 Final result Normal [facility] APTTon 07-26-2022 aPTT Coag (Bld) [Time] 23.4 s Normal 20.5-30.[address] [facility] Comment on above: Result Comment: IV Heparin Therapy Range: 48.6-77.8 Performed By: #### A NAX, IFX, PHEP, FKLLC, PE #### [facility] [address] [place] [address] Sock Turner: Bala Skelton MD aPTT Coag (Bld) [Time] 23.[address] [facility] Comment on above: IV Heparin Therapy Range: 48.6-77.8 CBC with Auto Differentialon 07-26-2022 Absolute Eos # 0.29 [facility] Absolute Immature Granulocyte 0.[address] [facility] Absolute Lymph # 2.26 [facility] SECO URS [facility] Absolute [place] # 0.65 [facility] RS [facility] Basophils (Bld) [#/Vol] 0.04 10*3/uL [facility] Basophils/100 WBC (Bld) 1 % 0 - 2 % [facility] Eosinophils/100 WBC (Bld) 4 % 1 - 4 % [facility] Hematocrit (Bld) [Volume fraction] 29.5 % Low 36.3 - 47.1 % [facility] Hemoglobin (Bld) [Mass/Vol] 10.1 g/dL Low 11.9 - 15.1 g/dL [facility] Immature granulocytes/100 WBC (Bld) 1 % High [address] [facility] Interpretation and review of laboratory results Abnormal [facility] Lymphocytes/100 WBC (Bld) 27 % 24 - 43 % [facility] MCH (RBC) [Entitic mass] 29.3 pg 25.2 - 33.[address] [facility] MCHC (RBC) [Mass/Vol] 34.2 g/dL 28.4 - 34.8 g/dL [facility] MCV (RBC) [Entitic vol] 85.5 fL 82.6 - 102.[address] [facility] Monocytes/100 WBC (Bld) 8 % 3 - 12 % [facility] NRBC Automated 0.0 0.0 per [address] [facility] Platelet distribution width (Bld) [Ratio] 13.4 % 11.8 - 14.4 % [facility] Platelet mean volume (Bld) [Entitic vol] 9.5 fL 8.1 - 13.[address] [facility] Platelets (Bld) [#/Vol] 311 10*3/uL [facility] RBC (Bld) [#/Vol] 3.45 10*6/uL Low 3.95 - 5.1 1 m/uL [facility] Segmented neutrophils/100 WBC (Bld) 59 % 36 - 65 % [facility] Segs Absolute 5.[address] [facility] WBC (Bld) [#/Vol] 8.3 10*3/uL [facility] CBC with Diffon 07-26-2022 Abs. Basophil 0.04 k/uL Normal 0.00-0.[address] [facility] Comment on above: Performed By: #### A NAX, IFX, PHEP, FKLLC, PE #### [employer] [address] [place], [place] [id number] Sock Turner: Bala Skelton MD Abs.Imm.Granulocyte 0.09 k/uL Normal 0.00-0.[address] [facility] Comment on above: Performed By: #### A NAX, IFX, PHEP, FKLLC, PE #### [employer] [address] [place], [place] [id number] Sock Turner: Bala Skelton MD Abs.Neutrophil (Seg) 5.00 k/uL Normal 1.50-8.[address] [facility] Comment on above: Performed By: #### A NAX, IFX, PHEP, FKLLC, PE #### [address] [address] Sock Turner: Bala Skelton MD Basophils/100 WBC (Bld) 1 % Normal 0-[address] [facility] Comment on above: Performed By: #### A NAX, IFX, PHEP, FKLLC, PE #### [place] [address] Sock Turner: Bala Skelton MD Eosinophils (Bld) [#/Vol] 0.29 10*3/uL Normal 0.00-0.[address] [facility] Comment on above: Performed By: #### A NAX, IFX, PHEP, FKLLC, PE #### [place] [address] Sock Turner: Bala Skelton MD Eosinophils/100 WBC (Bld) 4 % Normal 1-[address] [facility] Comment on above: Performed By: #### A NAX, IFX, PHEP, FKLLC, PE #### [place] [address] Sock Turner: Bala Skelton MD Erythrocyte distribution width (RBC) [Ratio] 13.4 % Normal 11.8-14.[address] [facility] Comment on above: Performed By: #### A NAX, IFX, PHEP, FKLLC, PE #### [place] [address] Sock Turner: Bala Skelton MD Hematocrit (Bld) [Volume fraction] 29.5 % Low 36.3-47.[address] [facility] Comment on above: Performed By: #### A NAX, IFX, PHEP, FKLLC, PE #### [place] [id number] Sock Turner: Bala Skelton MD Hemoglobin (Bld) [Mass/Vol] 10.1 g/dL Low 11.9-15.[address] [facility] Comment on above: Performed By: #### A NAX, IFX, PHEP, FKLLC, PE #### [address] [address] Sock Turner: Bala Skelton MD Immature granulocytes/100 WBC (Bld) 1 % High [address] [facility] Comment on above: Performed By: #### A NAX, IFX, PHEP, FKLLC, PE #### [address] [address] Sock Turner: Bala Skelton MD Lymphocytes (Bld) [#/Vol] 2.26 10*3/uL Normal 1.10-3.[address] [facility] Comment on above: Performed By: #### A NAX, IFX, PHEP, FKLLC, PE #### [address] [address] Sock Turner: Bala Skelton MD Lymphocytes/100 WBC (Bld) 27 % Normal 24-[address] [facility] Comment on above: Performed By: #### A NAX, IFX, PHEP, FKLLC, PE #### [address] [address] Sock Turner: Bala Skelton MD MCH (RBC) [Entitic mass] 29.3 pg Normal 25.2-33.[address] [facility] Comment on above: Performed By: #### A NAX, IFX, PHEP, FKLLC, PE #### [address] [address] Sock Turner: Bala Skelton MD MCHC (RBC) [Mass/Vol] 34.2 g/dL Normal 28.4-34.[address] [facility] Comment on above: Performed By: #### A NAX, IFX, PHEP, FKLLC, PE #### [address] [address] Sock Turner: Bala Skelton MD MCV (RBC) [Entitic vol] 85.5 fL Normal 82.6-102.[address] [facility] Comment on above: Performed By: #### A NAX, IFX, PHEP, FKLLC, PE #### [address] [address] Sock Turner: Bala Skelton MD Monocytes (Bld) [#/Vol] 0.65 10*3/uL Normal 0.10-1.[address] [facility] Comment on above: Performed By: #### A NAX, IFX, PHEP, FKLLC, PE #### [address] [address] Sock Turner: Bala Skelton MD Monocytes/100 WBC (Bld) 8 % Normal 3-[address] [facility] Comment on above: Performed By: #### A NAX, IFX, PHEP, FKLLC, PE #### [address] [address] Sock Turner: Bala Skelton MD Neutrophil (Seg) 59 % Normal 36-65 [facility] Comment on above: Performed By: #### A NAX, IFX, PHEP, FKLLC, PE #### [address] [address] Sock Turner: Bala Skelton MD NRBC Automated 0.0 per 100 WBC Normal 0.[address] [facility] Comment on above: Performed By: #### A NAX, IFX, PHEP, FKLLC, PE #### [address] [address] Sock Turner: Bala Skelton MD Platelet mean volume (Bld) [Entitic vol] 9.5 fL Normal 8.1-13.[address] [facility] Comment on above: Performed By: #### A NAX, IFX, PHEP, FKLLC, PE #### [facility] [place] [address] Sock Turner: Bala Skelton MD Platelets (Bld) [#/Vol] 311 10*3/uL Normal 138-[address] [facility] Comment on above: Performed By: #### A NAX, IFX, PHEP, FKLLC, PE #### [facility] [address] [place] [address] Sock Turner: Bala Skelton MD RBC (Bld) [#/Vol] 3.45 10*6/uL Low 3.95-5.[address] [facility] Comment on above: Performed By: #### A NAX, IFX, PHEP, FKLLC, PE #### [facility] [address] [place] [address] Sock Turner: Bala Skelton MD WBC (Bld) [#/Vol] 8.3 10*3/uL Normal 3.5-11.[address] [facility] Comment on above: Performed By: #### A NAX, IFX, PHEP, FKLLC, PE #### [facility] [place] [address] Sock Turner: Bala Skelton MD IR GUIDED NEPHROURETERAL CAT H REMOVE/REPLACEon 07-26-2022 1. Successful left nephroureteral stent exchange. [facility] Bishnu Wright MD - [...] detailed explanation of the procedure including risks. [place] protocol was observed. Sterile gowns, masks, hats and gloves utilized for maximal sterile barrier. The patient was placed in the prone position on the fluoroscopy table, and the existing left nephroureteral stent and flank were prepped and draped in sterile manner. The stent tubing was noted to be broken with the lumen exposed near the level of the skin. A metal neutralizer image demonstrated the distal loop approximating the [...] wire. Under fluoroscopic guidance, a new 8 Panamanian x 22 cm nephroureteral stent was advanced over the wire; the distal loop formed in the bladder, but the proximal loop did not form in the renal pelvis. Therefore, this catheter was removed over wire, and a new 8 Panamanian x 24 cm nephroureteral stent was advanced [...] IMPRESSION: 1. Successful left nephroureteral stent exchange. [employer] Work Phone: Radiology Study observation (narrative) [facility] [employer] Work Phone: IR GUIDED NEPHROURETERAL CAT H REMOVE/REPLACEOrdered By: Bishnu Alan on 07-26-2022 [facility] Work Phone: No Panel Informationon 07-26 [facility] POC Glucose Fingerstickon Glucose [Mass/Vol] 185 mg/dL High 65 - 105 mg/dL [facility] Interpretation and review of laboratory results Abnormal [facility] [employer] [facility] PTon 07-26-2022 INR Coag (PPP) [Relative time] 0.9 {INR} Normal [facility] Comment on above: Result Comment: Therapeutic Range: Moderate Anticoagulant Intensity: INR = 2.0-3.0 High Anticoagulant Intensity: INR = 2.5-3.5 Performed By: #### A NAX, IFX, PHEP, FKLLC, PE #### [employer] [address] [place] [address] [phone] Sock Turner: Bala Skelton MD PT Coag (PPP) [Time] 9.4 s Normal 9.1-12.[address] [facility] Comment on above: Performed By: #### A NAX, IFX, PHEP, FKLLC, PE #### [employer] [address] [place] [address] [phone] Sock Turner: Bala Skelton MD Protime-INRon 07-26-2022 INR Coag (Bld) [Relative time] 0.9 {INR} [facility] Comment on above: Therapeutic Range: Moderate Anticoagulant Intensity: INR = 2.0-3.0 High Anticoagulant Intensity: INR = 2.5-3.5 PT Coag (PPP) [Time] 9.[address] [facility] Cult, Blood 07-25-2022 Cult, Blood Specimen Description .BLOOD Special Requests LEFT FOREARM 5ML Culture NO GROWTH 5 DAYS Report Status FINAL 07/25/2022 [facility] Comment on above: Performed By: #### B C #### [employer] [address] [place] [id number] Sock Turner: Bala Skelton MD Cult,Bloodon 07-25-2022 Cult,Blood Specimen Description .BLOOD Special Requests LT WRIST 2.5ML Culture NO GROWTH 5 DAYS Report Status FINAL 07/25/2022 [facility] Comment on above: Performed By: #### B C #### [facility] [address] [place] [address] [phone] Sock Turner: Bala Skelton MD Cult,Blood Specimen Description .BLOOD Special Requests RT WRIST 2.5ML Culture NO GROWTH 5 DAYS Report Status FINAL 07/25/[address] [facility] Comment on above: Performed By: #### A NAX, IFX, PHEP, FKLLC, PE #### [facility] [address] [place], [place] [phone] Sock Turner: Bala Skelton MD Cult,Blood Specimen Description .BLOOD Special Requests 2ML Culture NO GROWTH 5 DAYS Report Status FINAL 07/25/[address] [facility] Comment on above: Performed By: #### A NAX, IFX, PHEP, FKLLC, PE #### [facility] [address] [place], [place] [phone] Sock Turner: Bala Skelton MD XR ABDOMEN (KUB) (SINGLE [...] Bry Foreman MD 07/25/22 Final result Normal [facility] Left PCNU in place. There is [...] bowel gas. Recommend repeat exam or CT. [employer] Phone: Radiology Study observation (narrative) [employer] Phone: XR ABDOMEN (KUB) (SINGLE AP VIEW)Ordered By: Bry Foreman on 07-25-2022 [employer] Phone: Cult,Bloodon 07-23-2022 Cult,Blood Specimen Description .BLOOD Special Requests R FOREARM 10 ML Culture NO GROWTH 5 DAYS Report Status FINAL 07/23/[address] [facility] Comment on above: Performed By: #### A NAX, IFX, PHEP, FKLLC, PE #### [facility] [address] [place] [address] Sock Turner: Bala Skelton MD Cult,Blood Specimen Description .BLOOD Special Requests L WRIST 10 ML Culture NO GROWTH 5 DAYS Report Status FINAL 07/23/2022 [facility] Comment on above: Performed By: #### L ACTIC #### [facility] [address] [place] [address] [phone] Sock Turner: Bala Seklton MD ALEXANDRE Screen w/reflexon 2021 ALEXANDRE Screen Negative Normal NEG [facility] Comment on above: Performed By: #### A NAX, IFX, PHEP, FKLLC, PE #### [address] [phone] Sock Turner: Bala Skelton MD Anti-dsDNA 2.1 IU/mL Normal <10.[address] [facility] Comment on above: Result Comment: Reference Range: <10.0 Negative 10.0-15.0 Equivocal >15.0 Positive Performed By: #### A NAX, IFX, PHEP, FKLLC, PE #### [address] [phone] Sock Turner: Bala Skelton MD MICKIE Screen 0.1 U/mL Normal <0.[address] [facility] Comment on above: Result Comment: Reference Range: <0.7 Negative 0.7-1.0 Equivocal >1.0 Positive MICKIE Screen includes U1RNP,RNP70,Sm,Ro(SS-A),La(SS-B),CENP,Scl-70,Gina-1 Performed By: #### A NAX, IFX, PHEP, FKLLC, PE #### [address] [phone] Sock Turner: Bala Skelton MD ALEXANDRE Screen with Reflexon Anti ds DNA 2.[address] [facility] Comment on above: Reference Range: <10.0 Negative 10.0-15.0 Equivocal >15.0 Positive MICKIE Antibodies Screen 0.1 U/mL NINF - 0.7 U/mL [facility] Comment on above: Reference Range: <0.7 Negative 0.7-1.0 Equivocal >1.0 Positive MICKIE Screen includes U1RNP,RNP70,Sm,Ro(SS-A),La(SS-B),CENP,Scl-70,Gina-1 Nuclear Ab IF (S) [Titer] Negative NEGATIVE [facility] Basic Metab w/rfx MGon 07-22 (cont.) Normal [facility] Comment on above: Result Comment: Aver age GFR for 50-59 years old: 93 mL/min/1.73sq m Chronic Kidney Disease: <60 mL/min/1.73sq m Kidney failure: <15 mL/min/1.73sq m eGFR calculated using average adult body mass. Additional eGFR calculator available at: http://www.[employer]/multiple_crcl_2012.htm Performed By: #### A NAX, IFX, PHEP, FKLLC, PE #### [facility] [address] [place] [address] [phone] Sock Turner: Bala Skelton MD Anion gap [Moles/Vol] 12 mmol/L Normal 9-[address] [facility] Comment on above: Performed By: #### A NAX, IFX, PHEP, FKLLC, PE #### [facility] [address] [place] [address] Sock Turner: Bala Skelton MD Calcium [Mass/Vol] 8.5 mg/dL Low 8.6-10.[address] [facility] Comment on above: Performed By: #### A NAX, IFX, PHEP, FKLLC, PE #### [facility] [address] [place] [address] Sock Turner: Bala Skelton MD Chloride [Moles/Vol] 101 mmol/L Normal 98-[address] [facility] Comment on above: Performed By: #### A NAX, IFX, PHEP, FKLLC, PE #### [facility] [address] [place] [phone] Sock Turner: Bala Skelton MD CO2 [Moles/Vol] 25 mmol/L Normal 20-[address] [facility] Comment on above: Performed By: #### A NAX, IFX, PHEP, FKLLC, PE #### [facility] [address] [place] [address] Sock Turner: Bala Skelton MD Creatinine [Mass/Vol] 1.06 mg/dL High 0.50-0.[address] [facility] Comment on above: Performed By: #### A NAX, IFX, PHEP, FKLLC, PE #### [facility] [address] [place] [phone] Sock Turner: Bala Skelton MD GFR, Amer >60 Normal >60 [facility] Comment on above: Performed By: #### A NAX, IFX, PHEP, FKLLC, PE #### [facility] [address] [place] [phone] Sock Turner: Bala Skelton MD GFR,non Amer 55 mL/min Low >[address] [facility] Comment on above: Performed By: #### A NAX, IFX, PHEP, FKLLC, PE #### [address] [address] Sock Turner: Bala Skelton MD Glucose [Mass/Vol] 172 mg/dL High 70-[address] [facility] Comment on above: Performed By: #### A NAX, IFX, PHEP, FKLLC, PE #### [facility] [address] [place] [address] Sock Turner: Bala Skelton MD Potassium [Moles/Vol] 4.1 mmol/L Normal 3.7-5.[address] [facility] Comment on above: Performed By: #### A NAX, IFX, PHEP, FKLLC, PE #### [facility] [address] [place] [address] 8[address] Sock Turner: Bala Skelton MD Sodium [Moles/Vol] 138 mmol/L Normal 135-[address] [facility] Comment on above: Performed By: #### A NAX, IFX, PHEP, FKLLC, PE #### [facility] [address] [place], [place] [phone] Sock Turner: Bala Skelton MD Urea nitrogen [Mass/Vol] 24 mg/dL High 6-[address] [facility] Comment on above: Performed By: #### A NAX, IFX, PHEP, FKLLC, PE #### [facility] [address] [place], [place] [phone] Sock Turner: Bala Skelton MD Basic Metabolic Panel w/ Ref romulo to MGon 07-22-2022 Anion gap [Moles/Vol] 12 mmol/L 9 - 17 mmol/L [employer] Calcium [Mass/Vol] 8.5 mg/dL Low 8.6 - 10. 4 mg/dL [employer] [facility] Chloride [Moles/Vol] 101 mmol/L 98 - 107 mmol/L [facility] CO2 [Moles/Vol] 25 mmol/L 20 - 31 mmol/L [facility] Creatinine [Mass/Vol] 1.06 mg/dL High 0.5 - 0.9 mg/dL [employer] [facility] GFR >60 60 - PINF mL/min [employer] [facility] GFR Non- 55 mL/min Low 60 - PINF mL/min [employer] [facility] GFR/1.73 sq M.predicted MDRD (S/P/Bld) [Vol rate/Area] [facility] Comment on above: Average GFR for 50-5 9 years old: 93 mL/min/1.73sq m Chronic Kidney Disease: <60 mL/min/1.73sq m Kidney failure: <15 mL/min/1.73sq m eGFR calculated using average adult body mass. Additional eGFR calculator available at: http://www.[employer]/multiple_crcl_2012.htm Glucose [Mass/Vol] 172 mg/dL High 70 - 99 mg/dL [facility] [employer] Interpretation and review of laboratory results Abnormal [facility] Potassium [Moles/Vol] 4.1 mmol/L 3.7 - 5.3 mmol/L [facility] Sodium [Moles/Vol] 138 mmol/L 135 - 144 mmol/L [facility] Urea nitrogen (BldV) [Mass/Vol] 24 mg/dL High 6 - 20 mg/dL [facility] Electrophoresis Protein, Ser on 07-22-2022 Albumin % 57 % 45 - 65 % [facility] Albumin [Mass/Vol] 3.6 g/dL 3.2 - 5.2 g/dL [facility] Alpha 1 % 4 % 3 - 6 % [facility] Alpha 2 % 15 % High 6 - 13 % [facility] Mrxwd-7-Jywxajiz 0.2 g/dL 0.1 - 0.4 g/dL [facility] Stlip-6-Bzjcfgkq 0.9 g/dL 0.5 - 0.9 g/dL [facility] Beta Globulin 0.9 g/dL 0.5 - 1.1 g/dL [facility] Beta Percent 14 % 11 - 19 % [facility] Free PSA/Total PSA [Mass fraction] 6.3 g/dL Low 6.4 - 8.3 g/dL [facility] Gamma Globulin 0.6 g/dL 0.5 - 1.5 g/dL [facility] Gamma Globulin % 10 % 9 - 20 % [facility] Interpretation and review of laboratory results Abnormal [facility] Pathologist Cyto stain Nom (Cvx/Vag) [ID] Reviewed by pathologist: Mary Stovall M.D. [facility] Protein Electrophoresis, Serum NORMAL ELECTROPHORETIC PATTERN [facility] Comment on above: IMMUNOFIXATION IS NE GATIVE FOR MONOCLONAL IMMUNOGLOBULIN. Total Prot. Sum 6.2 g/dL Low 6.3 - 8.2 g/dL [facility] Total Prot. Sum,% 100 % 98 - 102 % [facility] Hepatitis Acute [facility] 07-22 Hep A Ab,IgM Non-Reactive Normal NR [facility] Comment on above: Performed By: #### A NAX, IFX, PHEP, FKLLC, PE #### [facility] [address] [place] [address] Sock Turner: Bala Skelton MD Hep B Core Ab,IgM Non-Reactive Normal NR [facility] Comment on above: Performed By: #### A NAX, IFX, PHEP, FKLLC, PE #### [facility] [address] [place] [address] Sock Turner: Bala Skelton MD Hep B Surf Ag Non-Reactive Normal [facility] Comment on above: Performed By: #### A NAX, IFX, PHEP, FKLLC, PE #### [facility] [address] [place] [address] Sock Turner: Bala Skelton MD Hep C Ab Non-Reactive Normal [facility] Comment on above: Result Comment: The [...] A NAX, IFX, PHEP, FKLLC, PE #### [facility] [address] [place] [address] Sock Turner: Bala Skelton MD Hepatitis Panel, [facility] HAV IgM IA Qn (S) Non-Reactive NONREACTIVE [facility] Hep B Core Ab, IgM Non-Reactive NONREACTIVE [facility] aCon Hepatitis B Surface Ag Non-Reactive NONREACTIVE [facility] aCon Hepatitis C Ab Non-Reactive NONREACTIVE [facility] Comment on above: The hepatitis C procedure [...] recommended by ordering HCV RNA by PCR. [facility] Immunofixation serum profile on 07-22-2022 Pathologist Cyto stain Nom (Cvx/Vag) [ID] Reviewed by pathologist: Mary Stovall M.D. [facility] Serum IFX Interp IMMUNOFIXATION IS NEGATIVE FOR MONOCLONAL IMMUNOGLOBULIN. [facility] Immunofixation urine random profileon 07-22-2022 Protein (U) [Mass/Vol] 144 mg/dL [facility] Urine IFX Interp IMMUNOFIXATION IS NEGATIVE FOR MONOCLONAL IMMUNOGLOBULIN. [facility] Urine IFX Specimen .URINE [facility] Immunofixation,Bloodon 07-22 IFX - Interpret. IMMUNOFIXATION IS NEGATIVE FOR MONOCLONAL IMMUNOGLOBULIN. [facility] Comment on above: Performed By: #### A NAX, IFX, PHEP, FKLLC, PE #### [employer] [address] [place] [address] [phone] Sock Turner: Bala Skelton MD Pathologist Review: Reviewed by patholog ist: Mary Stovall M.D. [facility] Comment on above: Performed By: #### A NAX, IFX, PHEP, FKLLC, PE #### [employer] [address] [place] [address] [phone] Sock Turner: Bala Skelton MD Immunofixation,Urineon 07-22 Ur. IFX-Interpret IMMUNOFIXATION IS NEGATIVE FOR MONOCLONAL IMMUNOGLOBULIN. [facility] Comment on above: Performed By: #### A NAX, IFX, PHEP, FKLLC, PE #### [employer] [address] [place] [address] Sock Turner: Bala Skelton MD Lactic Acidon 07-22-2022 Lactic Acid,Whole Bl 1.9 mmol/L Normal 0.7-2.[address] [facility] Comment on above: Performed By: #### A NAX, IFX, PHEP, FKLLC, PE #### [facility], [place] [phone] Sock Turner: Bala Skelton MD Lactic Acid, Whole Blood 1.9 mmol/L 0.7 - 2.1 mmol/L [facility] Lactic Acid,Whole Bl 2.3 mmol/L High 0.7-2.[address] [facility] Comment on above: Performed By: #### L ACTIC #### [facility] [address] [place] [address] Sock Turner: Bala Skelton MD Interpretation and review of laboratory results Abnormal [facility] Lactic Acid, Whole Blood 2.3 mmol/L High 0.7 - 2.1 mmol/L [facility] POC Glucose Fingerstickon Glucose [Mass/Vol] 164 mg/dL High 65 - 105 mg/dL [facility] Interpretation and review of laboratory results Abnormal [facility] Glucose [Mass/Vol] 177 mg/dL High 65 - 105 mg/dL [facility] Interpretation and review of laboratory results Abnormal [facility] Prot. Electroph, Blon 2021 Pathologist Review: Reviewed by patholog ist: Mary Stovall M.D. Normal [facility] Comment on above: Performed By: #### A NAX, IFX, PHEP, FKLLC, PE #### [facility] [place], [place] [phone] Sock Turner: Bala Skelton MD Prot. Elect-Interp NORMAL ELECTROPHORET IC PATTERN Normal [facility] Comment on above: Result Comment: IMMU NOFIXATION IS NEGATIVE FOR MONOCLONAL IMMUNOGLOBULIN. Performed By: #### A NAX, IFX, PHEP, FKLLC, PE #### [facility] [place], [place] [phone] Sock Turner: Bala Skelton MD Total Prot. Sum 6.2 g/dL Low 6.3-8.[address] [facility] Comment on above: Performed By: #### A NAX, IFX, PHEP, FKLLC, PE #### [facility] [place] [address] Sock Turner: Bala Skelton MD Total Prot. Sum,% 100 % Normal 98-102 [facility] Comment on above: Performed By: #### A NAX, IFX, PHEP, FKLLC, PE #### [facility] [address] [place] [address] Sock Turner: Bala Skelton MD Prot. Electrophoresis, Uron 07-22-2022 Pathologist Review: Reviewed by patholog ist: Mary Stovall M.D. Normal [facility] Comment on above: Performed By: #### A NAX, IFX, PHEP, FKLLC, PE #### [facility] [address] [place] [address] Sock Turner: Bala Skelton MD Ur.-Prot.Elect-Inte r ELEVATED PROTEIN CONCENTRATION. MOST SERUM PROTEINS ARE DETECTED IN THIS URINE. Normal [facility] Comment on above: Result Comment: USUA LLY OBSERVED WITH MARKEDLY INCREASED NON-SELECTIVE GLOMERULAR PERMEABILITY (i.e. SEVERE GLOMERULAR DISEASE), CONTAMINATION OF URINE WITH BLOOD, OR A COMBINATION OF THESE. A DECREASE IN TUBULAR FUNCTION CANNOT BE RULED OUT. IMMUNOFIXATION IS NEGATIVE FOR MONOCLONAL IMMUNOGLOBULIN. Performed By: #### A NAX, IFX, PHEP, FKLLC, PE #### [facility] [place] [address] Sock Turner: Bala Skelton MD Protein Electrophoresis, Uri neon 07-22-2022 P E Interpretation, U ELEVATED PROTEIN CONCENTRATION. MOST SERUM PROTEINS ARE DETECTED IN THIS URINE. USUALLY OBSERVED WITH MARKEDLY INCREASED NON-SELECTIVE GLOMERULAR PERMEABILITY (i.e. SEVERE GLOMERULAR DISEASE), CONTAMINATION OF [facility] Comment on above: URINE WITH BLOOD, OR A COMBINATION OF THESE. A DECREASE IN TUBULAR FUNCTION CANNOT BE RULED OUT. IMMUNOFIXATION IS NEGATIVE FOR MONOCLONAL IMMUNOGLOBULIN. Pathologist Reviewed by patholog ist: Mary Stovall M.D. [facility] Protein (U) [Mass/Vol] 144 mg/dL [facility] Specimen Type .URINE [facility] Basic Metab w/rfx MGon 07-21 (cont.) Normal [facility] Comment on above: Result Comment: Aver age GFR for 50-59 years old: 93 mL/min/1.73sq m Chronic Kidney Disease: <60 mL/min/1.73sq m Kidney failure: <15 mL/min/1.73sq m eGFR calculated using average adult body mass. Additional eGFR calculator available at: http://www.[employer]/multiple_crcl_2012.htm Performed By: #### A NAX, IFX, PHEP, FKLLC, PE #### [facility] [address] [place] [address] Sock Turner: Bala Skelton MD Anion gap [Moles/Vol] 12 mmol/L Normal 9-[address] [facility] Comment on above: Performed By: #### A NAX, IFX, PHEP, FKLLC, PE #### [facility] [address] [place] [address] Sock Turner: Bala Skelton MD Calcium [Mass/Vol] 8.3 mg/dL Low 8.6-10.[address] [facility] Comment on above: Performed By: #### A NAX, IFX, PHEP, FKLLC, PE #### [facility] [address] [place] [address] Sock Turner: Bala Skelton MD Chloride [Moles/Vol] 101 mmol/L Normal 98-[address] [facility] Comment on above: Performed By: #### A NAX, IFX, PHEP, FKLLC, PE #### [employer] [address] [place] [address] [phone] Sock Turner: Bala Skelton MD CO2 [Moles/Vol] 23 mmol/L Normal 20-[address] [facility] Comment on above: Performed By: #### A NAX, IFX, PHEP, FKLLC, PE #### [address] [phone] Sock Turner: Bala Skelton MD Creatinine [Mass/Vol] 1.00 mg/dL High 0.50-0.[address] [facility] Comment on above: Performed By: #### A NAX, IFX, PHEP, FKLLC, PE #### [address] [phone] Sock Turner: Bala Skelton MD GFR, Amer >60 Normal >60 [facility] Comment on above: Performed By: #### A NAX, IFX, PHEP, FKLLC, PE #### [address] [phone] Sock Turner: Bala Skelton MD GFR,non Amer 59 mL/min Low >[address] [facility] Comment on above: Performed By: #### A NAX, IFX, PHEP, FKLLC, PE #### [address] [phone] Sock Turner: Bala Skelton MD Glucose [Mass/Vol] 157 mg/dL High 70-[address] [facility] Comment on above: Performed By: #### A NAX, IFX, PHEP, FKLLC, PE #### [address] [phone] Sock Turner: Bala Skelton MD Potassium [Moles/Vol] 3.7 mmol/L Normal 3.7-5.[address] [facility] Comment on above: Performed By: #### A NAX, IFX, PHEP, FKLLC, PE #### [address] [place] [address] Sock Turner: Bala Skelton MD Sodium [Moles/Vol] 136 mmol/L Normal 135-[address] [facility] Comment on above: Performed By: #### A NAX, IFX, PHEP, FKLLC, PE #### [facility] [address] [place] [address] Sock Turner: Bala Skelton MD Urea nitrogen [Mass/Vol] 26 mg/dL High 6-[address] [facility] Comment on above: Performed By: #### A NAX, IFX, PHEP, FKLLC, PE #### [address] [address] Sock Turner: Bala Skelton MD (cont.) [facility] Comment on above: Result Comment: Aver age GFR for 50-59 years old: 93 mL/min/1.73sq m Chronic Kidney Disease: <60 mL/min/1.73sq m Kidney failure: <15 mL/min/1.73sq m eGFR calculated using average adult body mass. Additional eGFR calculator available at: http://www.[employer]/multiple_crcl_2012.htm Performed By: #### B C #### [address] [address] Sock Turner: Bala Skelton MD Anion gap [Moles/Vol] 13 mmol/L Normal 9-[address] [facility] Comment on above: Performed By: #### B C #### [address] [address] Sock Turner: Bala Skelton MD Calcium [Mass/Vol] 8.1 mg/dL Low 8.6-10.[address] [facility] Comment on above: Performed By: #### B C #### [facility] [address] [place] [address] Sock Turner: Bala Skelton MD Chloride [Moles/Vol] 101 mmol/L Normal 98-[address] [facility] Comment on above: Performed By: #### B C #### [facility] [address] [place] [address] Sock Turner: Bala Skelton MD CO2 [Moles/Vol] 20 mmol/L Normal 20-[address] [facility] Comment on above: Performed By: #### B C #### [address] [address] Sock Turner: Bala Skelton MD Creatinine [Mass/Vol] 1.28 mg/dL High 0.50-0.[address] [facility] Comment on above: Performed By: #### B C #### [address] [address] Sock Turner: Bala Skelton MD GFR, Amer 54 mL/min Low >60 [facility] Comment on above: Performed By: #### B C #### [address] [address] Sock Turner: Bala Skelton MD GFR,non Amer 44 mL/min Low >[address] [facility] Comment on above: Performed By: #### B C #### [address] [address] Sock Turner: Bala Skelton MD Glucose [Mass/Vol] 224 mg/dL High 70-[address] [facility] Comment on above: Performed By: #### B C #### [address] [address] Sock Turner: Bala Skelton MD Potassium [Moles/Vol] 3.8 mmol/L Normal 3.7-5.[address] [facility] Comment on above: Performed By: #### B C #### [address] [address] Sock Turner: Bala Skelton MD Sodium [Moles/Vol] 134 mmol/L Low 135-[address] [facility] Comment on above: Performed By: #### B C #### [address] [address] Sock Turner: Bala Skelton MD Urea nitrogen [Mass/Vol] 28 mg/dL High 6-[address] [facility] Comment on above: Performed By: #### B C #### [address] [address] Sock Turner: Bala Skelton MD Anion gap [Moles/Vol] 13 mmol/L Normal 9-[address] [facility] Comment on above: Performed By: #### A NAX, IFX, PHEP, FKLLC, PE #### [address] [address] Sock Turner: Bala Skelton MD Sodium [Moles/Vol] 131 mmol/L Low 135-[address] [facility] Comment on above: Performed By: #### A NAX, IFX, PHEP, FKLLC, PE #### [address] [address] Sock Turner: Bala Sketlon MD (cont.) [facility] Comment on above: Result Comment: Aver age GFR for 50-59 years old: 93 mL/min/1.73sq m Chronic Kidney Disease: <60 mL/min/1.73sq m Kidney failure: <15 mL/min/1.73sq m eGFR calculated using average adult body mass. Additional eGFR calculator available at: http://www.[employer]/multiple_crcl_2012.htm Performed By: #### A NAX, IFX, PHEP, FKLLC, PE #### [address] [address] Sock Turner: Bala Skelton MD Calcium [Mass/Vol] 8.4 mg/dL Low 8.6-10.[address] [facility] Comment on above: Performed By: #### A NAX, IFX, PHEP, FKLLC, PE #### [facility] [address] [place] [address] Sock Turner: Bala Skelton MD Chloride [Moles/Vol] 100 mmol/L Normal 98-[address] [facility] Comment on above: Performed By: #### A NAX, IFX, PHEP, FKLLC, PE #### [facility] [address] [place] [address] Sock Turner: Bala Skelton MD CO2 [Moles/Vol] 18 mmol/L Low 20-[address] [facility] Comment on above: Performed By: #### A NAX, IFX, PHEP, FKLLC, PE #### [address] [address] Sock Turner: Bala Skelton MD Creatinine [Mass/Vol] 1.37 mg/dL High 0.50-0.[address] [facility] Comment on above: Performed By: #### A NAX, IFX, PHEP, FKLLC, PE #### [facility] [address] [place] [address] Sock Turner: Bala Skelton MD GFR, Amer 49 mL/min Low >60 [facility] Comment on above: Performed By: #### A NAX, IFX, PHEP, FKLLC, PE #### [facility] [address] [place] [address] Sock Turner: Bala Skelton MD GFR,non Amer 41 mL/min Low >[address] [facility] Comment on above: Performed By: #### A NAX, IFX, PHEP, FKLLC, PE #### [facility] [address] [place] [address] Sock Turner: Bala Skelton MD Glucose [Mass/Vol] 184 mg/dL High 70-[address] [facility] Comment on above: Performed By: #### A NAX, IFX, PHEP, FKLLC, PE #### [facility] [address] [place], [place] [phone] Sock Turner: Bala Skelton MD Potassium [Moles/Vol] 3.8 mmol/L Normal 3.7-5.[address] [facility] Comment on above: Performed By: #### A NAX, IFX, PHEP, FKLLC, PE #### [facility] [address] [place], [place] [phone] Sock Turner: Bala Skelton MD Urea nitrogen [Mass/Vol] 27 mg/dL High 6-[address] [facility] Comment on above: Performed By: #### A NAX, IFX, PHEP, FKLLC, PE #### [facility] [address] [place], [place] [phone] Sock Turner: Bala Skelton MD Basic Metabolic Panel w/ Ref romulo to MGon 07-21-2022 Anion gap [Moles/Vol] 12 mmol/L 9 - 17 mmol/L [employer] Calcium [Mass/Vol] 8.3 mg/dL Low 8.6 - 10. 4 mg/dL [employer] Chloride [Moles/Vol] 101 mmol/L 98 - 107 mmol/L [employer] CO2 [Moles/Vol] 23 mmol/L 20 - 31 mmol/L [employer] Creatinine [Mass/Vol] 1 mg/dL High 0.5 - 0.9 mg/dL [employer] GFR >60 60 - PINF mL/min [employer] GFR Non- 59 mL/min Low 60 - PINF mL/min [employer] GFR/1.73 sq M.predicted MDRD (S/P/Bld) [Vol rate/Area] [employer] Comment on above: Average GFR for 50-5 9 years old: 93 mL/min/1.73sq m Chronic Kidney Disease: <60 mL/min/1.73sq m Kidney failure: <15 mL/min/1.73sq m eGFR calculated using average adult body mass. Additional eGFR calculator available at: http://www.[employer]/multiple_crcl_2012.htm Glucose [Mass/Vol] 157 mg/dL High 70 - 99 mg/dL [facility] Interpretation and review of laboratory results Abnormal [facility] Potassium [Moles/Vol] 3.7 mmol/L 3.7 - 5.3 mmol/L [facility] Sodium [Moles/Vol] 136 mmol/L 135 - 144 mmol/L [facility] [employer] Urea nitrogen (BldV) [Mass/Vol] 26 mg/dL High 6 - 20 mg/dL [facility] Anion gap [Moles/Vol] 13 mmol/L 9 - 17 mmol/L [facility] [employer] Calcium [Mass/Vol] 8.1 mg/dL Low 8.6 - 10. 4 mg/dL [facility] Chloride [Moles/Vol] 101 mmol/L 98 - 107 mmol/L [facility] CO2 [Moles/Vol] 20 mmol/L 20 - 31 mmol/L [facility]ITALMosaic Storage SystemsMER[facility] Creatinine [Mass/Vol] 1.28 mg/dL High 0.5 - 0.9 mg/dL [facility] [employer]im[employer] PharmaceuticalsMER[facility] GFR 54 mL/min Low 60 - PINF mL/min [facility] GFR Non- 44 mL/min Low 60 - PINF mL/min [facility]ITALMosaic Storage SystemsMER[facility] GFR/1.73 sq M.predicted MDRD (S/P/Bld) [Vol rate/Area] [facility]ITALMosaic Storage SystemsMER[facility] Comment on above: Average GFR for 50-5 9 years old: 93 mL/min/1.73sq m Chronic Kidney Disease: <60 mL/min/1.73sq m Kidney failure: <15 mL/min/1.73sq m eGFR calculated using average adult body mass. Additional eGFR calculator available at: http://www.[employer]/multiple_crcl_2012.htm Glucose [Mass/Vol] 224 mg/dL High 70 - 99 mg/dL [facility] Interpretation and review of laboratory results Abnormal [facility] Potassium [Moles/Vol] 3.8 mmol/L 3.7 - 5.3 mmol/L [facility] Sodium [Moles/Vol] 134 mmol/L Low 135 - 144 mmol/L [facility] Urea nitrogen (BldV) [Mass/Vol] 28 mg/dL High 6 - 20 mg/dL [facility] Immunofixation,Urineon 07-21 Protein (U) [Mass/Vol] 144 mg/dL Normal [facility] Comment on above: Performed By: #### A NAX, IFX, PHEP, FKLLC, PE #### [facility] [address] [place] [address] Sock Turner: Bala Skelton MD Type of Specimen .URINE Normal [facility] Comment on above: Performed By: #### A NAX, IFX, PHEP, FKLLC, PE #### [facility] [address] [place] [address] [phone] Sock Turner: Bala Skelton MD Lactic Acidon 07-21-2022 Lactic Acid,Whole Bl 2.5 mmol/L High 0.7-2.[address] [facility] Comment on above: Performed By: #### A NAX, IFX, PHEP, FKLLC, PE #### [facility] [address] [place] [address] Sock Turner: Bala Skelton MD Interpretation and review of laboratory results Abnormal [facility] Lactic Acid, Whole Blood 2.5 mmol/L High 0.7 - 2.1 mmol/L [facility] Lactic Acid,Whole Bl 1.9 mmol/L Normal 0.7-2.[address] [facility] Comment on above: Performed By: #### L ACTIC #### [facility] [address] [place] [id number] Sock Turner: Bala Skelton MD Lactic Acid, Whole Blood 1.9 mmol/L 0.7 - 2.1 mmol/L [facility] Lactic Acid,Whole Bl 3.0 mmol/L High 0.7-2.[address] [facility] Comment on above: Performed By: #### A NAX, IFX, PHEP, FKLLC, PE #### [facility] [address], [place] [id number] Sock Turner: Bala Skelton MD Interpretation and review of laboratory results Abnormal [facility] Lactic Acid, Whole Blood 3.0 mmol/L High 0.7 - 2.1 mmol/L [facility] Lactic Acid,Whole Bl 2.2 mmol/L High 0.7-2.[address] [facility] Comment on above: Performed By: #### A NAX, IFX, PHEP, FKLLC, PE #### [facility] [address] [place] [address] Sock Turner: Bala Skelton MD Interpretation and review of laboratory results Abnormal [facility] Lactic Acid, Whole Blood 2.2 mmol/L High 0.7 - 2.1 mmol/L [facility] POC Glucose Fingerstickon Glucose [Mass/Vol] 210 mg/dL High 65 - 105 mg/dL [facility] Interpretation and review of laboratory results Abnormal [facility] Glucose [Mass/Vol] 142 mg/dL High 65 - 105 mg/dL [facility] Interpretation and review of laboratory results Abnormal [facility] Glucose [Mass/Vol] 227 mg/dL High 65 - 105 mg/dL [facility] Interpretation and review of laboratory results Abnormal [facility] Glucose [Mass/Vol] 219 mg/dL High 65 - 105 mg/dL [facility] Interpretation and review of laboratory results Abnormal [facility] Prot. Electroph, Blon 2021 Albumin [Mass/Vol] 3.6 g/dL Normal 3.2-5.[address] [facility] Comment on above: Performed By: #### A NAX, IFX, PHEP, FKLLC, PE #### [facility] [address] [place] [address] Sock Turner: Bala Skelton MD Albumin, % 57 % Normal 45-[address] [facility] Comment on above: Performed By: #### A NAX, IFX, PHEP, FKLLC, PE #### [facility] [address] [place] [address] Sock Turner: Bala Skelton MD Mcanc-2-uqooaudug 0.2 g/dL Normal 0.1-0.4 [facility] Comment on above: Performed By: #### A NAX, IFX, PHEP, FKLLC, PE #### [address] [address] Sock Turner: Bala Skelton MD Gwtpg-6-vbgsbyarz,% 4 % Normal 3-[address] [facility] Comment on above: Performed By: #### A NAX, IFX, PHEP, FKLLC, PE #### [facility] [address] [place] [address] Sock Turner: Bala Skelton MD Usgru-2-xhnaszyqc 0.9 g/dL Normal 0.5-0.9 [facility] Comment on above: Performed By: #### A NAX, IFX, PHEP, FKLLC, PE #### [facility] [address] [place] [address] Sock Turner: Bala Skelton MD Xsjak-9-bvbuegryj,% 15 % High 6-[address] [facility] Comment on above: Performed By: #### A NAX, IFX, PHEP, FKLLC, PE #### [facility] [address] [place] [address] Sock Turner: Bala Skelton MD Beta-globulins 0.9 g/dL Normal 0.5-1.[address] [facility] Comment on above: Performed By: #### A NAX, IFX, PHEP, FKLLC, PE #### [address] [address] Sock Turner: Bala Skelton MD Beta-globulins,% 14 % Normal 11-19 [facility] Comment on above: Performed By: #### A NAX, IFX, PHEP, FKLLC, PE #### [address] [address] Sock Turner: Bala Skelton MD Gamma-globulins 0.6 g/dL Normal 0.5-1.[address] [facility] Comment on above: Performed By: #### A NAX, IFX, PHEP, FKLLC, PE #### [address] [address] Sock Turner: Bala Skelton MD Gamma-globulins,% 10 % Normal -20 [facility] Comment on above: Performed By: #### A NAX, IFX, PHEP, FKLLC, PE #### [address] [address] Sock Turner: Bala Skelton MD Prot. Electrophoresis, Uron 07-21-2022 Total Protein Conc. 144 mg/dL Normal [facility] Comment on above: Performed By: #### A NAX, IFX, PHEP, FKLLC, PE #### [address] [address] Sock Turner: Bala Skelton MD BLOOD GAS, VENOUSon 07-20-20 22 Carboxyhemoglobin 1.4 % 0 - 5 % [facility] Comment on above: Reference Range: Non-Smokers 0-2% Average Smoker 2-4% Heavy Smoker <10% FIO2 INFORMATION NOT PROVIDED [facility] HCO3 (Bld) [Moles/Vol] 19.6 mmol/L Low 24 - 30 mmol/L [facility] Interpretation and review of laboratory results Abnormal [facility] Negative Base Excess, Olaf 5.6 mmol/L High 0 - 2 mmol/L [facility] Oxygen saturation in Blood 74.4 % 60 - 85 % [facility] pCO2, Olaf 39.5 39 - [address] [facility] pH, Olaf 7.316 Low 7.32 - 7.[address] [facility] pO2, Olaf 36.9 30 - [address] [facility] Pt Temp 37.0 [facility] Basic Metab w/rfx MGon 07-20 (cont.) Normal [facility] Comment on above: Result Comment: Aver age GFR for 50-59 years old: 93 mL/min/1.73sq m Chronic Kidney Disease: <60 mL/min/1.73sq m Kidney failure: <15 mL/min/1.73sq m eGFR calculated using average adult body mass. Additional eGFR calculator available at: http://www.[employer]/multiple_crcl_2012.htm Performed By: #### A NAX, IFX, PHEP, FKLLC, PE #### [facility] [address] [place] [address] [phone] Sock Turner: Bala Skelton MD Anion gap [Moles/Vol] 13 mmol/L Normal 9-[address] [facility] Comment on above: Performed By: #### A NAX, IFX, PHEP, FKLLC, PE #### [facility] [address], [place] [id number] Sock Turner: Bala Skelton MD Calcium [Mass/Vol] 8.7 mg/dL Normal 8.6-10.[address] [facility] Comment on above: Performed By: #### A NAX, IFX, PHEP, FKLLC, PE #### [facility] [address] [place] [address] Sock Turner: Bala Skelton MD Chloride [Moles/Vol] 97 mmol/L Low 98-[address] [facility] Comment on above: Performed By: #### A NAX, IFX, PHEP, FKLLC, PE #### [address] [address] Sock Turner: Bala Skelton MD CO2 [Moles/Vol] 18 mmol/L Low 20-[address] [facility] Comment on above: Performed By: #### A NAX, IFX, PHEP, FKLLC, PE #### [address] [address] Sock Turner: Bala Skelton MD Creatinine [Mass/Vol] 1.62 mg/dL High 0.50-0.[address] [facility] Comment on above: Performed By: #### A NAX, IFX, PHEP, FKLLC, PE #### [address] [address] Sock Turner: Bala Skelton MD GFR, Amer 41 mL/min Low >60 [facility] Comment on above: Performed By: #### A NAX, IFX, PHEP, FKLLC, PE #### [address] [address] Sock Turner: Bala Skelton MD GFR,non Amer 34 mL/min Low >[address] [facility] Comment on above: Performed By: #### A NAX, IFX, PHEP, FKLLC, PE #### [address] [address] Sock Turner: Bala Skelton MD Glucose [Mass/Vol] 360 mg/dL High 70-[address] [facility] Comment on above: Performed By: #### A NAX, IFX, PHEP, FKLLC, PE #### [address] [address] Sock Turner: Bala Skelton MD Potassium [Moles/Vol] 5.1 mmol/L Normal 3.7-5.[address] [facility] Comment on above: Performed By: #### A NAX, IFX, PHEP, FKLLC, PE #### [address] [address] Sock Turner: Bala Skelton MD Sodium [Moles/Vol] 128 mmol/L Low 135-[address] [facility] Comment on above: Performed By: #### A NAX, IFX, PHEP, FKLLC, PE #### [address] [address] Sock Turner: Bala Skelton MD Urea nitrogen [Mass/Vol] 32 mg/dL High 6-[address] [facility] Comment on above: Performed By: #### A NAX, IFX, PHEP, FKLLC, PE #### [address] [address] Sock Turner: Bala Skelton MD (cont.) [facility] Comment on above: Result Comment: Aver age GFR for 50-59 years old: 93 mL/min/1.73sq m Chronic Kidney Disease: <60 mL/min/1.73sq m Kidney failure: <15 mL/min/1.73sq m eGFR calculated using average adult body mass. Additional eGFR calculator available at: http://www.[employer].com/multiple_crcl_2012.htm Performed By: #### A NAX, IFX, PHEP, FKLLC, PE #### [address] [id number] Sock Turner: Bala Skelton MD Anion gap [Moles/Vol] 14 mmol/L Normal 9-[address] [facility] Comment on above: Performed By: #### A NAX, IFX, PHEP, FKLLC, PE #### [facility] [address] [place] [address] Sock Turner: Bala Skelton MD Calcium [Mass/Vol] 8.2 mg/dL Low 8.6-10.[address] [facility] Comment on above: Performed By: #### A NAX, IFX, PHEP, FKLLC, PE #### [address] [address] Sock Turner: Bala Skelton MD Chloride [Moles/Vol] 96 mmol/L Low 98-[address] [facility] Comment on above: Performed By: #### A NAX, IFX, PHEP, FKLLC, PE #### [address] [address] Sock Turner: Bala Skelton MD CO2 [Moles/Vol] 17 mmol/L Low 20-[address] [facility] Comment on above: Performed By: #### A NAX, IFX, PHEP, FKLLC, PE #### [address] [address] Sock Turner: Bala Skelton MD Creatinine [Mass/Vol] 1.68 mg/dL High 0.50-0.[address] [facility] Comment on above: Performed By: #### A NAX, IFX, PHEP, FKLLC, PE #### [address] [address] Sock Turner: Bala Skelton MD GFR, Amer 39 mL/min Low >60 [facility] Comment on above: Performed By: #### A NAX, IFX, PHEP, FKLLC, PE #### [address] [address] Sock Turner: Bala Skelton MD GFR,non Amer 32 mL/min Low >[address] [facility] Comment on above: Performed By: #### A NAX, IFX, PHEP, FKLLC, PE #### [address] [address] Sock Turner: Bala Skelton MD Potassium [Moles/Vol] 4.4 mmol/L Normal 3.7-5.[address] [facility] Comment on above: Performed By: #### A NAX, IFX, PHEP, FKLLC, PE #### [address] [address] Sock Turner: Bala Skelton MD Sodium [Moles/Vol] 127 mmol/L Low 135-[address] [facility] Comment on above: Performed By: #### A NAX, IFX, PHEP, FKLLC, PE #### [address] [address] Sock Turner: Bala Skelton MD Urea nitrogen [Mass/Vol] 33 mg/dL High 6-[address] [facility] Comment on above: Performed By: #### A NAX, IFX, PHEP, FKLLC, PE #### [address] [address] Sock Turner: Bala Skelton MD Glucose [Mass/Vol] 427 mg/dL Critically high 70-99 [facility] Comment on above: Performed By: #### A NAX, IFX, PHEP, FKLLC, PE #### [facility] [address] [place] [address] Sock Turner: Bala Skelton MD Glucose [Mass/Vol] 416 mg/dL Critically high 70-99 M [facility] Comment on above: Performed By: #### A NAX, IFX, PHEP, FKLLC, PE #### [facility] [address] [place] [address] Sock Turner: Bala Skelton MD (cont.) Normal [facility] Comment on above: Result Comment: Aver age GFR for 50-59 years old: 93 mL/min/1.73sq m Chronic Kidney Disease: <60 mL/min/1.73sq m Kidney failure: <15 mL/min/1.73sq m eGFR calculated using average adult body mass. Additional eGFR calculator available at: http://www.[employer]/multiple_crcl_2012.htm Performed By: #### A NAX, IFX, PHEP, FKLLC, PE #### [facility] [address] [place] [address] Sock Turner: Bala Skelton MD Anion gap [Moles/Vol] 15 mmol/L Normal 9-[address] [facility] Comment on above: Performed By: #### A NAX, IFX, PHEP, FKLLC, PE #### [facility] [address] [place] [address] Sock Turner: Bala Skelton MD Calcium [Mass/Vol] 8.5 mg/dL Low 8.6-10.[address] [facility] Comment on above: Performed By: #### A NAX, IFX, PHEP, FKLLC, PE #### [facility] [address] [place] [address] Sock Turner: Bala Skelton MD Chloride [Moles/Vol] 95 mmol/L Low 98-[address] [facility] Comment on above: Performed By: #### A NAX, IFX, PHEP, FKLLC, PE #### [facility] [address] [place] [address] Sock Turner: Bala Skelton MD CO2 [Moles/Vol] 18 mmol/L Low 20-[address] [facility] Comment on above: Performed By: #### A NAX, IFX, PHEP, FKLLC, PE #### [facility] [address] [place] [address] Sock Turner: Bala Skelton MD Creatinine [Mass/Vol] 2.11 mg/dL High 0.50-0.[address] [facility] Comment on above: Performed By: #### A NAX, IFX, PHEP, FKLLC, PE #### [facility] [address] [place] [address] Sock Turner: Bala Skelton MD GFR, Amer 30 mL/min Low >60 [facility] Comment on above: Performed By: #### A NAX, IFX, PHEP, FKLLC, PE #### [facility] [address] [place] [address] Sock Turner: Bala Skelton MD GFR,non Amer 25 mL/min Low >[address] [facility] Comment on above: Performed By: #### A NAX, IFX, PHEP, FKLLC, PE #### [facility] [address] [place] [address] Sock Turner: Bala Skelton MD Potassium [Moles/Vol] 5.0 mmol/L Normal 3.7-5.[address] [facility] Comment on above: Performed By: #### A NAX, IFX, PHEP, FKLLC, PE #### [facility] [address] [place] [address] Sock Turner: Bala Skelton MD Sodium [Moles/Vol] 128 mmol/L Low 135-[address] [facility] Comment on above: Performed By: #### A NAX, IFX, PHEP, FKLLC, PE #### [facility] [address] [place] [address] Sock Turner: Bala Skelton MD Urea nitrogen [Mass/Vol] 38 mg/dL High 6-[address] [facility] Comment on above: Performed By: #### A NAX, IFX, PHEP, FKLLC, PE #### [facility] [address] [place] [address] [phone] Sock Turner: Bala Skelton MD Basic Metabolic Panelon 07-07 Anion gap [Moles/Vol] 16 mmol/L 9 - 17 mmol/L [facility]ITALMosaic Storage SystemsMER[facility] Calcium [Mass/Vol] 8.2 mg/dL Low 8.6 - 10. 4 mg/dL [facility] Chloride [Moles/Vol] 95 mmol/L Low 98 - 107 mmol/L [facility]ITAL[facility] aCon CO2 [Moles/Vol] 17 mmol/L Low 20 - 31 mmol/L [facility] Creatinine [Mass/Vol] 2.35 mg/dL High 0.5 - 0.9 mg/dL [facility] GFR 27 mL/min Low 60 - PINF mL/min [facility] GFR Non- 22 mL/min Low 60 - PINF mL/min [facility] GFR/1.73 sq M.predicted MDRD (S/P/Bld) [Vol rate/Area] [facility]ITAL[facility] Comment on above: Average GFR for 50-5 9 years old: 93 mL/min/1.73sq m Chronic Kidney Disease: <60 mL/min/1.73sq m Kidney failure: <15 mL/min/1.73sq m eGFR calculated using average adult body mass. Additional eGFR calculator available at: http://www.[employer]/multiple_crcl_2012.htm Glucose [Mass/Vol] 439 mg/dL Critically high 70 - 99 mg/d L [facility]ITALMosaic Storage SystemsMERCY [facility] Interpretation and review of laboratory results Abnormal [facility] Potassium [Moles/Vol] 5.2 mmol/L 3.7 - 5.3 mmol/L [facility] Sodium [Moles/Vol] 128 mmol/L Low 135 - 144 mmol/L [facility]im[facility] PharmaceuticalsMER[facility] Urea nitrogen (BldV) [Mass/Vol] 37 mg/dL High 6 - 20 mg/dL [facility] Basic Metabolic Panel w/ Ref romulo to MGon 07-20-2022 Anion gap [Moles/Vol] 13 mmol/L 9 - 17 mmol/L [facility] aCon Calcium [Mass/Vol] 8.4 mg/dL Low 8.6 - 10. 4 mg/dL [facility] Chloride [Moles/Vol] 100 mmol/L 98 - 107 mmol/L [facility] CO2 [Moles/Vol] 18 mmol/L Low 20 - 31 mmol/L [facility] Creatinine [Mass/Vol] 1.37 mg/dL High 0.5 - 0.9 mg/dL [facility] GFR 49 mL/min Low 60 - PINF mL/min [facility] GFR Non- 41 mL/min Low 60 - PINF mL/min [facility] GFR/1.73 sq M.predicted MDRD (S/P/Bld) [Vol rate/Area] [facility] Comment on above: Average GFR for 50-5 9 years old: 93 mL/min/1.73sq m Chronic Kidney Disease: <60 mL/min/1.73sq m Kidney failure: <15 mL/min/1.73sq m eGFR calculated using average adult body mass. Additional eGFR calculator available at: http://www.[employer]/multiple_crcl_2012.htm Glucose [Mass/Vol] 184 mg/dL High 70 - 99 mg/dL [facility] Interpretation and review of laboratory results Abnormal [facility] Potassium [Moles/Vol] 3.8 mmol/L 3.7 - 5.3 mmol/L [facility] Sodium [Moles/Vol] 131 mmol/L Low 135 - 144 mmol/L [facility] Urea nitrogen (BldV) [Mass/Vol] 27 mg/dL High 6 - 20 mg/dL [facility] Anion gap [Moles/Vol] 13 mmol/L 9 - 17 mmol/L [facility] Calcium [Mass/Vol] 8.7 mg/dL 8.6 - 10. 4 mg/dL [facility] Chloride [Moles/Vol] 97 mmol/L Low 98 - 107 mmol/L [facility] CO2 [Moles/Vol] 18 mmol/L Low 20 - 31 mmol/L [facility] Creatinine [Mass/Vol] 1.62 mg/dL High 0.5 - 0.9 mg/dL [facility] GFR 41 mL/min Low 60 - PINF mL/min [facility] GFR Non- 34 mL/min Low 60 - PINF mL/min [facility] SECVivione Biosciences [facility] GFR/1.73 sq M.predicted MDRD (S/P/Bld) [Vol rate/Area] [facility] Comment on above: Average GFR for 50-5 9 years old: 93 mL/min/1.73sq m Chronic Kidney Disease: <60 mL/min/1.73sq m Kidney failure: <15 mL/min/1.73sq m eGFR calculated using average adult body mass. Additional eGFR calculator available at: http://www.[employer]_crcl_2011.htm Glucose [Mass/Vol] 360 mg/dL High 70 - 99 mg/dL [facility] Potassium [Moles/Vol] 5.1 mmol/L 3.7 - 5.3 mmol/L [facility] Sodium [Moles/Vol] 128 mmol/L Low 135 - 144 mmol/L [facility]Net[facility] Urea nitrogen (BldV) [Mass/Vol] 32 mg/dL High 6 - 20 mg/dL [facility] SECM[facility] Anion gap [Moles/Vol] 14 mmol/L 9 - 17 mmol/L [facility] SECM[facility] HEALTH Calcium [Mass/Vol] 8.2 mg/dL Low 8.6 - 10. 4 mg/dL [facility] Chloride [Moles/Vol] 96 mmol/L Low 98 - 107 mmol/L [facility] CO2 [Moles/Vol] 17 mmol/L Low 20 - 31 mmol/L [facility] Creatinine [Mass/Vol] 1.68 mg/dL High 0.5 - 0.9 mg/dL [facility] GFR 39 mL/min Low 60 - PINF mL/min [facility] GFR Non- 32 mL/min Low 60 - PINF mL/min [facility] GFR/1.73 sq M.predicted MDRD (S/P/Bld) [Vol rate/Area] [facility] Comment on above: Average GFR for 50-5 9 years old: 93 mL/min/1.73sq m Chronic Kidney Disease: <60 mL/min/1.73sq m Kidney failure: <15 mL/min/1.73sq m eGFR calculated using average adult body mass. Additional eGFR calculator available at: http://www.[employer]_crcl_2012.htm Interpretation and review of laboratory results Abnormal [facility] aCon Potassium [Moles/Vol] 4.4 mmol/L 3.7 - 5.3 mmol/L [facility]ITALM[facility] Storage SystemsMER[facility] Sodium [Moles/Vol] 127 mmol/L Low 135 - 144 mmol/L [facility] aCon Urea nitrogen (BldV) [Mass/Vol] 33 mg/dL High 6 - 20 mg/dL [facility] aCon [facility] SystemsMER[facility] Anion gap [Moles/Vol] 15 mmol/L 9 - 17 mmol/L [facility] Calcium [Mass/Vol] 8.5 mg/dL Low 8.6 - 10. 4 mg/dL [facility]ITALM[facility] Storage SystemsMER[facility] Chloride [Moles/Vol] 95 mmol/L Low 98 - 107 mmol/L [facility] CO2 [Moles/Vol] 18 mmol/L Low 20 - 31 mmol/L [facility]ITALM[facility] Storage SystemsMER[facility] Creatinine [Mass/Vol] 2.11 mg/dL High 0.5 - 0.9 mg/dL [facility] GFR 30 mL/min Low 60 - PINF mL/min [facility] aCon GFR Non- 25 mL/min Low 60 - PINF mL/min [facility] GFR/1.73 sq M.predicted MDRD (S/P/Bld) [Vol rate/Area] [facility]ITALNet[facility] Comment on above: Average GFR for 50-5 9 years old: 93 mL/min/1.73sq m Chronic Kidney Disease: <60 mL/min/1.73sq m Kidney failure: <15 mL/min/1.73sq m eGFR calculated using average adult body mass. Additional eGFR calculator available at: http://www.[employer]pir[employer]/multiple_crcl_2012.htm Glucose [Mass/Vol] 416 mg/dL Critically high 70 - 99 mg/d L [facility] Interpretation and review of laboratory results Abnormal [facility] Potassium [Moles/Vol] 5.0 mmol/L 3.7 - 5.3 mmol/L [facility] Sodium [Moles/Vol] 128 mmol/L Low 135 - 144 mmol/L [facility] Urea nitrogen (BldV) [Mass/Vol] 38 mg/dL High 6 - 20 mg/dL [facility] Basic Metabolic Profon 07-20 Glucose [Mass/Vol] 439 mg/dL Critically high 70-99 M [facility] Comment on above: Performed By: #### A NAX, IFX, PHEP, FKLLC, PE #### [employer] [address] [place], [place] [id number] Sock Turner: Bala Skelton MD (cont.) [facility] Comment on above: Result Comment: Aver age GFR for 50-59 years old: 93 mL/min/1.73sq m Chronic Kidney Disease: <60 mL/min/1.73sq m Kidney failure: <15 mL/min/1.73sq m eGFR calculated using average adult body mass. Additional eGFR calculator available at: http://www.[employer]/multiple_crcl_2012.htm Performed By: #### A NAX, IFX, PHEP, FKLLC, PE #### [employer] [address] [place] [address] Sock Turner: Bala Skelton MD Anion gap [Moles/Vol] 16 mmol/L Normal -[address] [facility] Comment on above: Performed By: #### A NAX, IFX, PHEP, FKLLC, PE #### [facility] [address] [place], [place] [phone] Sock Turner: Bala Skelton MD Calcium [Mass/Vol] 8.2 mg/dL Low 8.6-10.[address] [facility] Comment on above: Performed By: #### A NAX, IFX, PHEP, FKLLC, PE #### [employer] [address] [place] [address] Sock Turner: Bala Skelton MD Chloride [Moles/Vol] 95 mmol/L Low 98-[address] [facility] Comment on above: Performed By: #### A NAX, IFX, PHEP, FKLLC, PE #### [address] [address] Sock Turner: Bala Skelton MD CO2 [Moles/Vol] 17 mmol/L Low 20-[address] [facility] Comment on above: Performed By: #### A NAX, IFX, PHEP, FKLLC, PE #### [address] [address] Sock Turner: Bala Skelton MD Creatinine [Mass/Vol] 2.35 mg/dL High 0.50-0.[address] [facility] Comment on above: Performed By: #### A NAX, IFX, PHEP, FKLLC, PE #### [address] [address] Sock Turner: Bala Skelton MD GFR, Amer 27 mL/min Low >60 [facility] Comment on above: Performed By: #### A NAX, IFX, PHEP, FKLLC, PE #### [address] [address] [address] Sock Turner: Bala Skelton MD GFR,non Amer 22 mL/min Low >[address] [facility] Comment on above: Performed By: #### A NAX, IFX, PHEP, FKLLC, PE #### [address] [address] Sock Turner: Bala Skelton MD Potassium [Moles/Vol] 5.2 mmol/L Normal 3.7-5.[address] [facility] Comment on above: Performed By: #### A NAX, IFX, PHEP, FKLLC, PE #### [facility] [place] [address] Sock Turner: Bala Skelton MD Sodium [Moles/Vol] 128 mmol/L Low 135-[address] [facility] Comment on above: Performed By: #### A NAX, IFX, PHEP, FKLLC, PE #### [facility] [address] [place] [address] [id number] Sock Turner: Bala Skelton MD Urea nitrogen [Mass/Vol] 37 mg/dL High 6-[address] [facility] Comment on above: Performed By: #### A NAX, IFX, PHEP, FKLLC, PE #### [facility] [address] [place] [address] Sock Turner: Bala Skelton MD C3on 07-20-2022 C3 209 mg/dL High 90-[address] [facility] Comment on above: Performed By: #### A NAX, IFX, PHEP, FKLLC, PE #### [facility] [address] [place] [address] Sock Turner: Bala Skelton MD C3 Complementon 07-20-2022 Complement C3 209 mg/dL High 90 - 180 mg/dL [facility] aCon C4on 07-20-2022 C4 41 mg/dL High 10-[address] [facility] Comment on above: Performed By: #### A NAX, IFX, PHEP, FKLLC, PE #### [facility] [address] [place] [address] [phone] Sock Turner: Bala Skelton MD C4 Complementon 07-20-2022 Complement C4 41 mg/dL High 10 - 40 mg/dL [facility] Mobile [employer] [facility] CBC with Auto Differentialon 07-20-2022 Absolute Eos # 0.00 [facility] aCon Absolute Immature Granulocyte 0.07 [facility] Absolute Lymph # 0.46 Low [facility] Absolute [place] # 0.33 [facility] RS [facility] Basophils (Bld) [#/Vol] 0.00 10*3/uL [facility] Basophils/100 WBC (Bld) 0 % 0 - 2 % [facility] Eosinophils/100 WBC (Bld) 0 % Low 1 - 4 % [facility] Hematocrit (Bld) [Volume fraction] 33.3 % Low 36.3 - 47.1 % [facility] Hemoglobin (Bld) [Mass/Vol] 11.0 g/dL Low 11.9 - 15.1 g/dL [facility] Immature granulocytes/100 WBC (Bld) 1 % High [address] [facility] Interpretation and review of laboratory results Abnormal [facility] Lymphocytes/100 WBC (Bld) 7 % Low 24 - 44 % [facility] MCH (RBC) [Entitic mass] 28.6 pg 25.2 - 33.[address] [facility] MCHC (RBC) [Mass/Vol] 33.0 g/dL 28.4 - 34.8 g/dL [facility] MCV (RBC) [Entitic vol] 86.7 fL 82.6 - 102.[address] [facility] Monocytes/100 WBC (Bld) 5 % 1 - 7 % [facility] Morphology Bran (Bld) [Interp] Normal [facility] NRBC Automated 0.0 0.0 per [address] [facility] Platelet distribution width (Bld) [Ratio] 13.8 % 11.8 - 14.4 % [facility] Platelets (Bld) [#/Vol] See Reflexed IPF Result [facility] RBC (Bld) [#/Vol] 3.84 10*6/uL Low 3.95 - 5.1 1 m/uL [facility] Segmented neutrophils/100 WBC (Bld) 87 % High 36 - 66 % [facility] Segs Absolute 5.[address] [facility] WBC (Bld) [#/Vol] 6.6 10*3/uL [facility] Absolute Eos # 0.00 [facility] Absolute Immature Granulocyte 0.[address] [facility] Absolute Lymph # 0.31 Low [facility] Absolute [place] # 0.41 [facility] Basophils (Bld) [#/Vol] 0.00 10*3/uL [facility] Basophils/100 WBC (Bld) 0 % 0 - 2 % [facility] Eosinophils/100 WBC (Bld) 0 % Low 1 - 4 % [facility] Hematocrit (Bld) [Volume fraction] 32.4 % Low 36.3 - 47.1 % [facility] Hemoglobin (Bld) [Mass/Vol] 11.0 g/dL Low 11.9 - 15.1 g/dL [facility] Immature granulocytes/100 WBC (Bld) 1 % High [address] [facility] Interpretation and review of laboratory results Abnormal [facility] Lymphocytes/100 WBC (Bld) 3 % Low 24 - 44 % [facility] MCH (RBC) [Entitic mass] 29.4 pg 25.2 - 33.[address] [facility] MCHC (RBC) [Mass/Vol] 34.0 g/dL 28.4 - 34.8 g/dL [facility] MCV (RBC) [Entitic vol] 86.6 fL 82.6 - 102.[address] [facility] Monocytes/100 WBC (Bld) 4 % 1 - 7 % [facility] Morphology Bran (Bld) [Interp] Normal [facility] NRBC Automated 0.0 0.0 per [address] [facility] Platelet distribution width (Bld) [Ratio] 13.6 % 11.8 - 14.4 % [facility] Platelet mean volume (Bld) [Entitic vol] 10.4 fL 8.1 - 13.[address] [facility] Platelets (Bld) [#/Vol] 252 10*3/uL [facility] RBC (Bld) [#/Vol] 3.74 10*6/uL Low 3.95 - 5.1 1 m/uL [facility] Segmented neutrophils/100 WBC (Bld) 92 % High 36 - 66 % [facility] Segs Absolute 9.[address] [facility] WBC (Bld) [#/Vol] 10.2 10*3/uL [facility] Absolute Eos # 0.12 [facility] Absolute Immature Granulocyte 0.[address] [facility] Absolute Lymph # 0.49 Low [facility] Absolute [place] # 0.00 Low [facility] Basophils (Bld) [#/Vol] 0.00 10*3/uL [facility] Basophils/100 WBC (Bld) 0 % 0 - 2 % [facility] Eosinophils/100 WBC (Bld) 1 % 1 - 4 % [facility] Hematocrit (Bld) [Volume fraction] 31.3 % Low 36.3 - 47.1 % [facility] Hemoglobin (Bld) [Mass/Vol] 10.6 g/dL Low 11.9 - 15.1 g/dL [facility] Immature granulocytes/100 WBC (Bld) 1 % High [address] [facility] Interpretation and review of laboratory results Abnormal [facility] Lymphocytes/100 WBC (Bld) 4 % Low 24 - 44 % [facility] MCH (RBC) [Entitic mass] 29.3 pg 25.2 - 33.[address] [facility] MCHC (RBC) [Mass/Vol] 33.9 g/dL 28.4 - 34.8 g/dL [facility] MCV (RBC) [Entitic vol] 86.5 fL 82.6 - 102.[address] [facility] Monocytes/100 WBC (Bld) 0 % Low 1 - 7 % [facility] Morphology Bran (Bld) [Interp] Normal [facility] NRBC Automated 0.0 0.0 per [address] [facility] Platelet distribution width (Bld) [Ratio] 13.5 % 11.8 - 14.4 % [facility] Platelet mean volume (Bld) [Entitic vol] 10.2 fL 8.1 - 13.[address] [facility] Platelets (Bld) [#/Vol] 280 10*3/uL [facility] RBC (Bld) [#/Vol] 3.62 10*6/uL Low 3.95 - 5.1 1 m/uL [facility] Segmented neutrophils/100 WBC (Bld) 94 % High 36 - 66 % [facility] Segs Absolute 11.[address] [facility] WBC (Bld) [#/Vol] 12.3 10*3/uL High [facility] CBC with Diffon 07-20-2022 Abs. Basophil 0.00 k/uL Normal 0.0-0.[address] [facility] Comment on above: Performed By: #### A NAX, IFX, PHEP, FKLLC, PE #### [place] [address] Sock Turner: Bala Skelton MD Abs.Imm.Granulocyte 0.07 k/uL Normal 0.00-0.[address] [facility] Comment on above: Performed By: #### A NAX, IFX, PHEP, FKLLC, PE #### [facility] [address] [place] [address] Sock Turner: Bala Skelton MD Abs.Neutrophil (Seg) 5.74 k/uL Normal 1.8-7.[address] [facility] Comment on above: Performed By: #### A NAX, IFX, PHEP, FKLLC, PE #### [place] [address] Sock Turner: Bala Skelton MD Basophils/100 WBC (Bld) 0 % Normal 0-[address] [facility] Comment on above: Performed By: #### A NAX, IFX, PHEP, FKLLC, PE #### [facility] [address] [place] [address] Sock Turner: Bala Skelton MD Eosinophils (Bld) [#/Vol] 0.00 10*3/uL Normal 0.0-0.[address] [facility] Comment on above: Performed By: #### A NAX, IFX, PHEP, FKLLC, PE #### [address] [address] Sock Turner: Bala Skelton MD Eosinophils/100 WBC (Bld) 0 % Low 1-[address] [facility] Comment on above: Performed By: #### A NAX, IFX, PHEP, FKLLC, PE #### [address] [address] Sock Turner: Bala Skelton MD Immature granulocytes/100 WBC (Bld) 1 % High [address] [facility] Comment on above: Performed By: #### A NAX, IFX, PHEP, FKLLC, PE #### [address] [address] Sock Turner: Bala Skelton MD Lymphocytes (Bld) [#/Vol] 0.46 10*3/uL Low 1.0-4.[address] [facility] Comment on above: Performed By: #### A NAX, IFX, PHEP, FKLLC, PE #### [place] [address] Sock Turner: Bala Skelton MD Lymphocytes/100 WBC (Bld) 7 % Low 24-[address] [facility] Comment on above: Performed By: #### A NAX, IFX, PHEP, FKLLC, PE #### [address] [address] Sock Turner: Bala Skelton MD Monocytes (Bld) [#/Vol] 0.33 10*3/uL Normal 0.1-0.[address] [facility] Comment on above: Performed By: #### A NAX, IFX, PHEP, FKLLC, PE #### [address] [address] Sock Turner: Bala Skelton MD Monocytes/100 WBC (Bld) 5 % Normal 1-[address] [facility] Comment on above: Performed By: #### A NAX, IFX, PHEP, FKLLC, PE #### [address] [address] Sock Turner: Bala Skelton MD Morphology Bran (Bld) [Interp] Normal Normal [facility] Comment on above: Performed By: #### A NAX, IFX, PHEP, FKLLC, PE #### [address] [address] Sock Turner: Bala Skelton MD Neutrophil (Seg) 87 % High 36-66 [facility] Comment on above: Performed By: #### A NAX, IFX, PHEP, FKLLC, PE #### [address] [address] Sock Turner: Bala Skelton MD Erythrocyte distribution width (RBC) [Ratio] 13.8 % Normal 11.8-14.[address] [facility] Comment on above: Performed By: #### A NAX, IFX, PHEP, FKLLC, PE #### [address] [address] Sock Turner: Bala Skelton MD Hematocrit (Bld) [Volume fraction] 33.3 % Low 36.3-47.[address] [facility] Comment on above: Performed By: #### A NAX, IFX, PHEP, FKLLC, PE #### [address] [address] Sock Turner: Bala Skelton MD Hemoglobin (Bld) [Mass/Vol] 11.0 g/dL Low 11.9-15.[address] [facility] Comment on above: Performed By: #### A NAX, IFX, PHEP, FKLLC, PE #### [address] [address] Sock Turner: Bala Skelton MD MCH (RBC) [Entitic mass] 28.6 pg Normal 25.2-33.[address] [facility] Comment on above: Performed By: #### A NAX, IFX, PHEP, FKLLC, PE #### [address] [address] Sock Turner: Bala Skelton MD MCHC (RBC) [Mass/Vol] 33.0 g/dL Normal 28.4-34.[address] [facility] Comment on above: Performed By: #### A NAX, IFX, PHEP, FKLLC, PE #### [address] [address] Sock Turner: Bala Skelton MD MCV (RBC) [Entitic vol] 86.7 fL Normal 82.6-102.[address] [facility] Comment on above: Performed By: #### A NAX, IFX, PHEP, FKLLC, PE #### [address] [address] Sock Turner: Bala Skelton MD NRBC Automated 0.0 per 100 WBC Normal 0.[address] [facility] Comment on above: Performed By: #### A NAX, IFX, PHEP, FKLLC, PE #### [address] [address] Sock Turner: Bala Skelton MD Platelet Count See Reflexed IPF Result Normal 138-[address] [facility] Comment on above: Performed By: #### A NAX, IFX, PHEP, FKLLC, PE #### [address] [address] Sock Turner: Bala Skelton MD RBC (Bld) [#/Vol] 3.84 10*6/uL Low 3.95-5.[address] [facility] Comment on above: Performed By: #### A NAX, IFX, PHEP, FKLLC, PE #### [address] [address] Sock Turner: Bala Skelton MD WBC (Bld) [#/Vol] 6.6 10*3/uL Normal 3.5-11.[address] [facility] Comment on above: Performed By: #### A NAX, IFX, PHEP, FKLLC, PE #### [address] [address] Sock Turner: Bala Skelton MD Abs. Basophil 0.00 k/uL Normal 0.0-0.[address] [facility] Comment on above: Performed By: #### A NAX, IFX, PHEP, FKLLC, PE #### [place] [address] Sock Turner: Bala Skelton MD Abs.Imm.Granulocyte 0.10 k/uL Normal 0.00-0.[address] [facility] Comment on above: Performed By: #### A NAX, IFX, PHEP, FKLLC, PE #### [address] [address] Sock Turner: Bala Skelton MD Abs.Neutrophil (Seg) 9.38 k/uL High 1.8-7.[address] [facility] Comment on above: Performed By: #### A NAX, IFX, PHEP, FKLLC, PE #### [address] [address] Sock Turner: Bala Skelton MD Basophils/100 WBC (Bld) 0 % Normal 0-[address] [facility] Comment on above: Performed By: #### A NAX, IFX, PHEP, FKLLC, PE #### [address] [address] Sock Turner: Bala Skelton MD Eosinophils (Bld) [#/Vol] 0.00 10*3/uL Normal 0.0-0.[address] [facility] Comment on above: Performed By: #### A NAX, IFX, PHEP, FKLLC, PE #### [address] [address] Sock Turner: Bala Skelton MD Eosinophils/100 WBC (Bld) 0 % Low 1-[address] [facility] Comment on above: Performed By: #### A NAX, IFX, PHEP, FKLLC, PE #### [place] [address] Sock Turner: Bala Skelton MD Immature granulocytes/100 WBC (Bld) 1 % High [address] [facility] Comment on above: Performed By: #### A NAX, IFX, PHEP, FKLLC, PE #### [place] [address] Sock Turner: Bala Skelton MD Lymphocytes (Bld) [#/Vol] 0.31 10*3/uL Low 1.0-4.[address] [facility] Comment on above: Performed By: #### A NAX, IFX, PHEP, FKLLC, PE #### [place] [address] Sock Turner: Bala Skelton MD Lymphocytes/100 WBC (Bld) 3 % Low 24-[address] [facility] Comment on above: Performed By: #### A NAX, IFX, PHEP, FKLLC, PE #### [place] [address] Sock Turner: Bala Skelton MD Monocytes (Bld) [#/Vol] 0.41 10*3/uL Normal 0.1-0.[address] [facility] Comment on above: Performed By: #### A NAX, IFX, PHEP, FKLLC, PE #### [address] [address] Sock Turner: Bala Skelton MD Monocytes/100 WBC (Bld) 4 % Normal 1-[address] [facility] Comment on above: Performed By: #### A NAX, IFX, PHEP, FKLLC, PE #### [address] [address] Sock Turner: Bala Skelton MD Morphology Bran (Bld) [Interp] Normal Normal [facility] Comment on above: Performed By: #### A NAX, IFX, PHEP, FKLLC, PE #### [address] [address] Sock Turner: Bala Skelton MD Neutrophil (Seg) 92 % High 36-66 [facility] Comment on above: Performed By: #### A NAX, IFX, PHEP, FKLLC, PE #### [address] [address] Sock Turner: Bala Skelton MD Erythrocyte distribution width (RBC) [Ratio] 13.6 % Normal 11.8-14.[address] [facility] Comment on above: Performed By: #### A NAX, IFX, PHEP, FKLLC, PE #### [address] [address] Sock Turner: Bala Skelton MD Hematocrit (Bld) [Volume fraction] 32.4 % Low 36.3-47.[address] [facility] Comment on above: Performed By: #### A NAX, IFX, PHEP, FKLLC, PE #### [address] [address] Sock Turner: Bala Skelton MD Hemoglobin (Bld) [Mass/Vol] 11.0 g/dL Low 11.9-15.[address] [facility] Comment on above: Performed By: #### A NAX, IFX, PHEP, FKLLC, PE #### [address] [address] Sock Turner: Bala Skelton MD MCH (RBC) [Entitic mass] 29.4 pg Normal 25.2-33.[address] [facility] Comment on above: Performed By: #### A NAX, IFX, PHEP, FKLLC, PE #### [address] [address] Sock Turner: Bala Skelton MD MCHC (RBC) [Mass/Vol] 34.0 g/dL Normal 28.4-34.[address] [facility] Comment on above: Performed By: #### A NAX, IFX, PHEP, FKLLC, PE #### [address] [address] Sock Turner: Bala Skelton MD MCV (RBC) [Entitic vol] 86.6 fL Normal 82.6-102.[address] [facility] Comment on above: Performed By: #### A NAX, IFX, PHEP, FKLLC, PE #### [address] [address] Sock Turner: Bala Skelton MD NRBC Automated 0.0 per 100 WBC Normal 0.[address] [facility] Comment on above: Performed By: #### A NAX, IFX, PHEP, FKLLC, PE #### [address] [address] Sock Turner: Bala Skelton MD Platelet mean volume (Bld) [Entitic vol] 10.4 fL Normal 8.1-13.[address] [facility] Comment on above: Performed By: #### A NAX, IFX, PHEP, FKLLC, PE #### [address] [address] Sock Turner: Bala Skelton MD Platelets (Bld) [#/Vol] 252 10*3/uL Normal 138-[address] [facility] Comment on above: Performed By: #### A NAX, IFX, PHEP, FKLLC, PE #### [address] [address] Sock Turner: Bala Skelton MD RBC (Bld) [#/Vol] 3.74 10*6/uL Low 3.95-5.[address] [facility] Comment on above: Performed By: #### A NAX, IFX, PHEP, FKLLC, PE #### [address] [address] Sock Turner: Bala Skelton MD WBC (Bld) [#/Vol] 10.2 10*3/uL Normal 3.5-11.[address] [facility] Comment on above: Performed By: #### A NAX, IFX, PHEP, FKLLC, PE #### [place] [address] Sock Turner: Bala Skelton MD Abs. Basophil 0.00 k/uL Normal 0.0-0.[address] [facility] Comment on above: Performed By: #### A NAX, IFX, PHEP, FKLLC, PE #### [address] [address] Sock Turner: Bala Skelton MD Abs.Imm.Granulocyte 0.12 k/uL Normal 0.00-0.[address] [facility] Comment on above: Performed By: #### A NAX, IFX, PHEP, FKLLC, PE #### [address] [address] Sock Turner: Bala Skelton MD Abs.Neutrophil (Seg) 11.57 k/uL High 1.8-7.[address] [facility] Comment on above: Performed By: #### A NAX, IFX, PHEP, FKLLC, PE #### [address] [address] Sock Turner: Bala Skelton MD Basophils/100 WBC (Bld) 0 % Normal 0-[address] [facility] Comment on above: Performed By: #### A NAX, IFX, PHEP, FKLLC, PE #### [place] [address] Sock Turner: Bala Skelton MD Eosinophils (Bld) [#/Vol] 0.12 10*3/uL Normal 0.0-0.[address] [facility] Comment on above: Performed By: #### A NAX, IFX, PHEP, FKLLC, PE #### [place] [address] Sock Turner: Bala Skelton MD Eosinophils/100 WBC (Bld) 1 % Normal 1-[address] [facility] Comment on above: Performed By: #### A NAX, IFX, PHEP, FKLLC, PE #### [place] [address] Sock Turner: Bala Skelton MD Immature granulocytes/100 WBC (Bld) 1 % High [address] [facility] Comment on above: Performed By: #### A NAX, IFX, PHEP, FKLLC, PE #### [place] [address] Sock Turner: Bala Skelton MD Lymphocytes (Bld) [#/Vol] 0.49 10*3/uL Low 1.0-4.[address] [facility] Comment on above: Performed By: #### A NAX, IFX, PHEP, FKLLC, PE #### [address] [address] Sock Turner: Bala Skelton MD Lymphocytes/100 WBC (Bld) 4 % Low 24-[address] [facility] Comment on above: Performed By: #### A NAX, IFX, PHEP, FKLLC, PE #### [address] [address] Sock Turner: Bala Skelton MD Monocytes (Bld) [#/Vol] 0.00 10*3/uL Low 0.1-0.[address] [facility] Comment on above: Performed By: #### A NAX, IFX, PHEP, FKLLC, PE #### [address] [address] Sock Turner: Bala Skelton MD Monocytes/100 WBC (Bld) 0 % Low 1-[address] [facility] Comment on above: Performed By: #### A NAX, IFX, PHEP, FKLLC, PE #### [address] [address] Sock Turner: Bala Skelton MD Morphology Bran (Bld) [Interp] Normal Normal [facility] Comment on above: Performed By: #### A NAX, IFX, PHEP, FKLLC, PE #### [address] [address] Sock Turner: Bala Skelton MD Neutrophil (Seg) 94 % High 36-66 [facility] Comment on above: Performed By: #### A NAX, IFX, PHEP, FKLLC, PE #### [address] [address] Sock Turner: Bala Skelton MD Erythrocyte distribution width (RBC) [Ratio] 13.5 % Normal 11.8-14.[address] [facility] Comment on above: Performed By: #### A NAX, IFX, PHEP, FKLLC, PE #### [facility] [address] [place] [address] Sock Turner: Bala Skelton MD Hematocrit (Bld) [Volume fraction] 31.3 % Low 36.3-47.[address] [facility] Comment on above: Performed By: #### A NAX, IFX, PHEP, FKLLC, PE #### [address] [address] Sock Turner: Bala Skelton MD Hemoglobin (Bld) [Mass/Vol] 10.6 g/dL Low 11.9-15.[address] [facility] Comment on above: Performed By: #### A NAX, IFX, PHEP, FKLLC, PE #### [address] [address] Sock Turner: Bala Skelton MD MCH (RBC) [Entitic mass] 29.3 pg Normal 25.2-33.[address] [facility] Comment on above: Performed By: #### A NAX, IFX, PHEP, FKLLC, PE #### [address] [address] Sock Turner: Bala Skelton MD MCHC (RBC) [Mass/Vol] 33.9 g/dL Normal 28.4-34.[address] [facility] Comment on above: Performed By: #### A NAX, IFX, PHEP, FKLLC, PE #### [address] [address] Sock Turner: Bala Skelton MD MCV (RBC) [Entitic vol] 86.5 fL Normal 82.6-102.[address] [facility] Comment on above: Performed By: #### A NAX, IFX, PHEP, FKLLC, PE #### [address] [address] Sock Turner: Bala Skelton MD NRBC Automated 0.0 per 100 WBC Normal 0.[address] [facility] Comment on above: Performed By: #### A NAX, IFX, PHEP, FKLLC, PE #### [facility] [address] [place] [address] Sock Turner: Bala Skelton MD Platelet mean volume (Bld) [Entitic vol] 10.2 fL Normal 8.1-13.[address] [facility] Comment on above: Performed By: #### A NAX, IFX, PHEP, FKLLC, PE #### [facility] [address] [place] [address] Sock Turner: Bala Skelton MD Platelets (Bld) [#/Vol] 280 10*3/uL Normal 138-[address] [facility] Comment on above: Performed By: #### A NAX, IFX, PHEP, FKLLC, PE #### [facility] [address] [place] [id number] Sock Turner: Bala Skelton MD RBC (Bld) [#/Vol] 3.62 10*6/uL Low 3.95-5.[address] [facility] Comment on above: Performed By: #### A NAX, IFX, PHEP, FKLLC, PE #### [facility] [address] [place] [id number] Sock Turner: Bala Skelton MD WBC (Bld) [#/Vol] 12.3 10*3/uL High 3.5-11.[address] [facility] Comment on above: Performed By: #### A NAX, IFX, PHEP, FKLLC, PE #### [facility] [address] [place] [id number] Sock Turner: Bala Skelton MD CREATININE, RANDOM URINEon 0 07-20-2022 Creatinine, Ur 67.5 mg/dL 28 - 217 mg/dL [facility] CULTURE URINEon 07-20-2022 CULTURE URINE Isolate [...] Trimethoprim/Sulfamethox azole <=20 S F Normal [facility] Comment on above: Performed By: #### U MICRO, ERUR #### [facility] [address] [place] [address] Dr. Delmer Rea Chloride, Random Urineon Chloride, Ur 50 mmol/L [facility] Comment on above: No normal range esta blished. Chloride,Random Uron 022 Chloride [Moles/Vol] 50 mmol/L Normal [facility] Comment on above: Result Comment: No n ormal range established. Performed By: #### A NAX, IFX, PHEP, FKLLC, PE #### [employer] [address] [place] [address] Sock Turner: Bala Skelton MD Creatinine, Random Urineon 0 07-20-2022 Creatinine, Ur 76.5 mg/dL 28 - 217 mg/dL [facility] Creatinine,Random Uron 07-20 Creatinine [Mass/Vol] 67.5 mg/dL Normal 28.0-217.[address] [facility] Comment on above: Performed By: #### B C #### [facility] [address] [place], [place] [id number] Sock Turner: Bala Skelton MD Creatinine [Mass/Vol] 76.5 mg/dL Normal 28.0-217.[address] [facility] Comment on above: Performed By: #### A NAX, IFX, PHEP, FKLLC, PE #### [employer] [address] [place] [address] Sock Turner: Bala Skelton MD EKG 12 LeadOrdered By: Cheryl Domínguez on 07-20-2022 Atrial Rate 105 BPM [employer] Work Phone: [phone] P [place] 8 degrees [employer] Work Phone: [phone] P-R Interval 136 ms [employer] Work Phone: Q-T Interval 344 ms [employer] Work Phone: QRS Duration 84 ms [employer] Work Phone: QTc Calculation (Bazett) 454 ms [employer] Work Phone: R [place] -15 degrees [employer] Work Phone: T [place] 13 degrees [employer] Work Phone: [phone] Ventricular Rate 105 BPM [facility] [employer] Work Phone: [employer] Work Phone: [phone] EKG 12 Leadon 07-20-2022 Sinus tachycardia Septal infarct (cited on or before 20-JUL-2022) Abnormal ECG When compared with ECG of 20-JUL-2022 05:40, No significant change was found [facility] ST Julien Jarrett MD - 07/20/2022 Sinus tachycardia Septal infarct (cited on or before 20-JUL-2022) Abnormal ECG When compared with ECG of 20-JUL-2022 05:40, No significant change was found [employer] Work Phone: Free [place] + Lambdaon 2021 Free [place] Lt Chains 2.91 mg/dL High 0.37-1.[address] [facility] Comment on above: Performed By: #### A NAX, IFX, PHEP, FKLLC, PE #### [facility] [address] [place], [place] [id number] Sock Turner: Bala Skelton MD Free [place]/Lambda Rat 1.67 High 0.26-1.[address] [facility] Comment on above: Performed By: #### A NAX, IFX, PHEP, FKLLC, PE #### [employer] [address] [place], [place] [id number] Sock Turner: Bala Skelton MD Free Lambda Lt Chains 1.74 mg/dL Normal 0.57-2.[address] [facility] Comment on above: Performed By: #### A NAX, IFX, PHEP, FKLLC, PE #### [facility] [address] [place], [place] [id number] Sock Turner: Bala Skelton MD Immature Platelet Fractionon 07-20-2022 Platelet, Fluorescence Platelet clumps present, count appears adequate. [facility] Scho[place]/Lambda Quantitative Fr ee Light Chains, Serumon 07-20-2022 Free [place]/Lambda Ratio 1.67 High 0.26 - 1.[address] [facility] Interpretation and review of laboratory results Abnormal [facility] Schoenchen Free Light Chains QNT 2.91 mg/dL High 0.37 - 1.94 mg/dL [facility] Lambda Free Light Chains QNT 1.74 mg/dL 0.57 - 2.63 mg/dL [facility] Lactate, Sepsison 07-20-2022 Lactic Acid,Sep Wbld 3.8 mmol/L High 0.5-1.[address] [facility] Comment on above: Performed By: #### B C #### [facility] [address] [place], [place] [id number] Sock Turner: Bala Skelton MD Interpretation and review of laboratory results Abnormal [facility] Lactic Acid, Sepsis, Whole Blood 3.8 mmol/L High 0.5 - 1.9 mmol/L [facility] Lactic Acidon 07-20-2022 Lactic Acid,Whole Bl 2.0 mmol/L Normal 0.7-2.[address] [facility] Comment on above: Performed By: #### B C #### [facility] [address] [place], [place] [address] Sock Turner: Bala Skelton MD Lactic Acid, Whole Blood 2.0 mmol/L 0.7 - 2.1 mmol/L [facility] No Panel Informationon 07-[address] [facility] Interpretation and review of laboratory results Abnormal [facility] PLT, Immature Fract.on 07-20 Platelet, Fluoresc. Platelet clumps pres ent, count appears adequate. Normal 138-[address] [facility] Comment on above: Performed By: #### A NAX, IFX, PHEP, FKLLC, PE #### [facility] [address] [place], [place] [id number] Sock Turner: Bala Skelton MD POC Glucose Fingerstickon Glucose [Mass/Vol] 145 mg/dL High 65 - 105 mg/dL [facility] Interpretation and review of laboratory results Abnormal [facility] Glucose [Mass/Vol] 231 mg/dL High 65 - 105 mg/dL [facility] Interpretation and review of laboratory results Abnormal [facility] Glucose [Mass/Vol] 393 mg/dL High 65 - 105 mg/dL [facility] Interpretation and review of laboratory results Abnormal [facility] Glucose [Mass/Vol] 405 mg/dL Critically high 65 - 1 05 mg/dL [facility] Comment on above: Critical Noted Interpretation and review of laboratory results Abnormal [facility] Glucose [Mass/Vol] 375 mg/dL High 65 - 105 mg/dL [facility] Interpretation and review of laboratory results Abnormal [facility] Glucose [Mass/Vol] 415 mg/dL Critically high 65 - 1 05 mg/dL [facility] Interpretation and review of laboratory results Abnormal [facility] Procalcitoninon 07-20-2022 Procalcitonin 48.54 ng/mL High <0.[address] [facility] Comment on above: Result Comment: Suspected [...] entered into the Change in Procalcitonin Calculator (www.hsjgmx-ecy-hqaejwzpmo.[employer]) to determine the patient's Mortality Risk Prognosis In healthy neonates, plasma Procalcitonin (PCT) concentrations increase gradually after , reaching peak values at about 24 hours of age then decrease to normal values below 0.5 ng/mL by 48-72 hours of age. Performed By: #### A NAX, IFX, PHEP, FKLLC, PE #### [facility] [address] [place], [place] [phone] Sock Turner: Bala Skelton MD Interpretation and review of laboratory results Abnormal [facility] Procalcitonin 48.54 ng/mL High NINF - 0.09 ng/mL [facility] Comment on above: Suspected Sepsis: <0.50 ng/mL [...] entered into the Change in Procalcitonin Calculator (www.zwjfiv-nya-rycehuxitw.com) to determine the patient's Mortality Risk Prognosis In healthy neonates, plasma Procalcitonin (PCT) concentrations increase gradually after , reaching peak values at about 24 hours of age then decrease to normal values below 0.5 ng/mL by 48-72 hours of age[address] [facility] Prot. Electroph, Blon 2021 Protein [Mass/Vol] 6.3 g/dL Low 6.4-8.[address] [facility] Comment on above: Performed By: #### A NAX, IFX, PHEP, FKLLC, PE #### [employer] [facility] [place] [address] Sock Turner: Bala Skelton MD Prot. Electrophoresis, Uron 07-20-2022 Type of Specimen .URINE Normal [facility] Comment on above: Performed By: #### A NAX, IFX, PHEP, FKLLC, PE #### [facility] [address] [place], [place] [id number] Sock Turner: Bala Skelton MD Protein / creatinine ratio, urineon 07-20-2022 Creatinine, Ur 75.7 mg/dL 28 - 217 mg/dL [facility] Interpretation and review of laboratory results Abnormal [facility] Protein (U) [Mass/Vol] 145 mg/dL [facility] Comment on above: No normal range esta blished. Urine Total Protein Creatinine Ratio 1.92 High 0 - 0.2 [facility] Protein, urine, randomon Protein (U) [Mass/Vol] 144 mg/dL [facility] Comment on above: No normal range esta blished. Protein,Tot,Evarts Uron 2021 Creatinine [Mass/Vol] 75.7 mg/dL Normal 28.0-217.[address] [facility] Comment on above: Performed By: #### A NAX, IFX, PHEP, FKLLC, PE #### [facility] [address] [place] [address] Sock Turner: Bala Skelton MD Tot Prot. Conc. 145 mg/dL Normal [facility] Comment on above: Result Comment: No n ormal range established. Performed By: #### A NAX, IFX, PHEP, FKLLC, PE #### [facility] [address] [place] [address] Sock Turner: Bala Skelton MD Tot Prot. Conc. 144 mg/dL Normal [facility] Comment on above: Result Comment: No n ormal range established. Performed By: #### A NAX, IFX, PHEP, FKLLC, PE #### [facility] [address] [place] [address] Sock Turner: Bala Skelton MD TP/Cre Ratio 1.92 High 0.00-0.[address] [facility] Comment on above: Performed By: #### A NAX, IFX, PHEP, FKLLC, PE #### [facility] [address] [place] [address] Sock Turner: Bala Skelton MD SODIUM, URINE, RANDOMon 07-07 Sodium (U) [Moles/Vol] mmol/L mmol/L [facility] Comment on above: No normal range esta blished. [facility] Sodium, Random Uron 07-20-20 22 Na Conc. Urine <[address] [facility] Comment on above: Result Comment: No n ormal range established. Performed By: #### B C #### [facility] [address] [place] [address] Sock Turner: Bala Skelton MD Sodium (U) [Moles/Vol] 26 mmol/L Normal [facility] Comment on above: Result Comment: No n ormal range established. Performed By: #### A NAX, IFX, PHEP, FKLLC, PE #### [facility] [address] [place] [address] Sock Turner: Bala Skelton MD Sodium, urine, randomon 07-07 Sodium (U) [Moles/Vol] 26 mmol/L [facility] Comment on above: No normal range esta [...] Femi Enamorado MD 07/20/22 Final result Normal [facility] 1. 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 Correlate with any recent instrumentation. 2. Equivocal dilatation of the upper pole left kidney. No overt hydronephrosis. 3. 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 RECOMMENDATIONS: Unavailable [facility] RIS CONSOLIDATED EXAMINATION: ULTRASOUND OF [...] the lower pole left kidney. [facility] RIS CONSOLIDATED Fei, Femi Estrada MD - 07/20/2022 EXAMINATION: ULTRASOUND [...] involving the left renal hilum. RECOMMENDATIONS: Unavailable [employer] Phone: Radiology Study observation (narrative) [employer] Phone: US RETROPERITONEAL LIMITEDOr dered By: Femi Enamorado on 07-20-2022 [employer] Phone: Urinalysis w/ Microon 2021 Epithelial cells LM Ql (Urine sed) 0 TO 2 Normal 0-[address] [facility] Comment on above: Performed By: #### A NAX, IFX, PHEP, FKLLC, PE #### [employer] [address] [place] [address] Sock Turner: Bala Skelton MD Urine RBC's TOO NUMEROUS TO COUNT Normal 0-2 [facility] Comment on above: Performed By: #### A NAX, IFX, PHEP, FKLLC, PE #### [address] [address] Sock Turner: Bala Skelton MD Urine WBC's 10 TO 20 Normal 0-[address] [facility] Comment on above: Performed By: #### A NAX, IFX, PHEP, FKLLC, PE #### [address] [address] Sock Turner: Bala Skelton MD Bilirubin, SemiQt,Ur Negative Normal NEG [facility] Comment on above: Performed By: #### A NAX, IFX, PHEP, FKLLC, PE #### [address] [address] Sock Turner: Bala Skelton MD Blood, Urine LARGE Abnormal NEG [facility] Comment on above: Performed By: #### A NAX, IFX, PHEP, FKLLC, PE #### [facility] [address] [place] [address] Sock Turner: Bala Skelton MD Clarity (U) Cloudy Abnormal CLEAR [facility] Comment on above: Performed By: #### A NAX, IFX, PHEP, FKLLC, PE #### [facility] [address] [place] [address] Sock Turner: Bala Skelton MD Color (U) Troup Abnormal YEL [facility] Comment on above: Result Comment: INTE RPRET WITH CAUTION DUE TO INTENSE COLOR OF URINE. Performed By: #### A NAX, IFX, PHEP, FKLLC, PE #### [facility] [address] [place] [address] Sock Turner: Bala Skelton MD Glucose Ql (U) 3+ Abnormal NEG [facility] Comment on above: Performed By: #### A NAX, IFX, PHEP, FKLLC, PE #### [facility] [address] [place] [address] Sock Turner: Bala Skelton MD Ketones Ql (U) Negative Normal NEG [facility] Comment on above: Performed By: #### A NAX, IFX, PHEP, FKLLC, PE #### [facility] [address] [place] [address] Sock Turner: Bala Skelton MD Leukocyte esterase Test strip Ql (U) MODERATE Abnormal NEG [facility] Comment on above: Performed By: #### A NAX, IFX, PHEP, FKLLC, PE #### [address] [address] Sock Turner: Bala Skelton MD Nitrite,Ur Negative Normal NEG [facility] Comment on above: Performed By: #### A NAX, IFX, PHEP, FKLLC, PE #### [facility] [address] [place] [address] Sock Turner: Bala Skelton MD PH,Ur 5.0 Normal 5.0-8.[address] [facility] Comment on above: Performed By: #### A NAX, IFX, PHEP, FKLLC, PE #### [facility] [address] [place] [address] Sock Turner: Bala Skelton MD Protein Ql (U) 2+ Abnormal NEG [facility] Comment on above: Performed By: #### A NAX, IFX, PHEP, FKLLC, PE #### [facility] [address] [place] [address] Sock Turner: Bala Skelton MD Spec. [place],Ur 1.022 Normal 1.005-1.030 [facility] Comment on above: Performed By: #### A NAX, IFX, PHEP, FKLLC, PE #### [facility] [address] [place], [place] [id number] Sock Turner: Bala Skelton MD Urobilinogen,Ur Normal Normal NORM [facility] Comment on above: Performed By: #### A NAX, IFX, PHEP, FKLLC, PE #### [facility] [address] [place], [place] [id number] Sock Turner: Bala Skelton MD Urinalysis with Microscopico n 07-20-2022 Bilirubin Urine Negative NEGATIVE [facility] Color, UA Troup Abnormal Yellow [facility] Comment on above: INTERPRET WITH CAUTI ON DUE TO INTENSE COLOR OF URINE. Epithelial Cells UA 0 TO 2 [facility] Glucose, Ur 3+ Abnormal NEGATIVE [facility] Interpretation and review of laboratory results Abnormal [facility] Ketones Ql (U) Negative NEGATIVE [facility] Leukocyte esterase Test strip Ql (U) MODERATE Abnormal NEGATIVE [facility] Nitrite, Urine Negative NEGATIVE [facility] pH, UA 5.0 5 - [address] [facility] Protein, UA 2+ Abnormal NEGATIVE [facility] RBC, UA TOO NUMEROUS TO COUNT [facility] Specific [place], UA 1.022 1.005 - 1.[address] [facility] Turbidity UA Cloudy Abnormal Clear [facility] Urine Hgb LARGE Abnormal NEGATIVE [facility] Urobilinogen, Urine Normal Normal [facility] WBC, UA 10 TO 20 [facility] Venous Blood Gaseson 022 Body Temp. 37.[address] [facility] Comment on above: Performed By: #### V BG #### [facility] [address] [place], [place] [id number] Sock Turner: Bala Skelton MD Carboxy Hgb 1.4 % Normal 0-[address] [facility] Comment on above: Result Comment: Reference Range: Non-Smokers 0-2% Average Smoker 2-4% Heavy Smoker <10% Performed By: #### V BG #### [facility] [address] [place] [address] Sock Turner: Bala Skelton MD FIO2 INFORMATION NOT PROVIDED Normal [facility] Comment on above: Performed By: #### V BG #### [facility] [address] [place] [address] Sock Turner: Bala Skelton MD HCO3 (Bld) [Moles/Vol] 19.6 mmol/L Low 24-[address] [facility] Comment on above: Performed By: #### V BG #### [address] [address] Sock Turner: Bala Skelton MD Negative Base Excess 5.6 mmol/L High 0.0-2.[address] [facility] Comment on above: Performed By: #### V BG #### [address] [address] Sock Turner: Bala Skelton MD Oxygen (Bld) [Partial pressure] 36.9 mm[Hg] Normal 30-[address] [facility] Comment on above: Performed By: #### V BG #### [address] [address] Sock Turner: Bala Skelton MD Oxygen saturation in Blood 74.4 % Normal 60.0-85.[address] [facility] Comment on above: Performed By: #### V BG #### [facility] [address] [place] [address] Sock Turner: Bala Skelton MD pCO2 39.5 Normal 39-[address] [facility] Comment on above: Performed By: #### V BG #### [address] [address] Sock Turner: Bala Skelton MD pH (Bld) 7.316 [pH] Low 7.320-7.[address] [facility] Comment on above: Performed By: #### V #### [address] [address] Sock Turner: Bala Skelton MD XR CHEST PORTABLEon 07-20-20 [...] Ricarda Orozco DO 07/20/22 Final result Normal [facility] 1. Mild vascular congestion. 2. Minimal [...] to atelectasis. No dense airspace consolidation. [facility] [employer] Phone: Radiology Study observation (narrative) [facility] [employer] Phone: XR CHEST PORTABLEOrdered By: Ricarda Orozco on 07-20-2022 [facility] [employer] Phone: Basic Metab w/rfx MGon 07-19 (cont.) Normal [facility] Comment on above: Result Comment: Aver age GFR for 50-59 years old: 93 mL/min/1.73sq m Chronic Kidney Disease: <60 mL/min/1.73sq m Kidney failure: <15 mL/min/1.73sq m eGFR calculated using average adult body mass. Additional eGFR calculator available at: http://www.[employer]/multiple_crcl_2012.htm Performed By: #### B MPX, CDP #### [employer] [address] [place] [address] Sock Turner: Bala Skelton MD Anion gap [Moles/Vol] 14 mmol/L Normal 9-[address] [facility] Comment on above: Performed By: #### B MPX, CDP #### [employer] [address] [place] [address] Sock Turner: Bala Skelton MD Calcium [Mass/Vol] 8.3 mg/dL Low 8.6-10.[address] [facility] Comment on above: Performed By: #### B MPX, CDP #### [facility] [facility] [place] [address] Sock Turner: Bala Skelton MD Chloride [Moles/Vol] 98 mmol/L Normal 98-[address] [facility] Comment on above: Performed By: #### B MPX, CDP #### [employer] [address] [place] [address] Sock Turner: Bala Skelton MD CO2 [Moles/Vol] 19 mmol/L Low 20-[address] [facility] Comment on above: Performed By: #### B MPX, CDP #### [facility] [address] [place] [address] Sock Turner: Bala Skelton MD Creatinine [Mass/Vol] 1.71 mg/dL High 0.50-0.[address] [facility] Comment on above: Performed By: #### B MPX, CDP #### [facility] [address] [place] [address] Sock Turner: Bala Skelton MD GFR, Amer 38 mL/min Low >60 [facility] Comment on above: Performed By: #### B MPX, CDP #### [facility] [address] [place] [address] Sock Turner: Bala Skelton MD GFR,non Amer 32 mL/min Low >[address] [facility] Comment on above: Performed By: #### B MPX, CDP #### [facility] [address] [place] [address] Sock Turner: Bala Skelton MD Glucose [Mass/Vol] 263 mg/dL High 70-[address] [facility] Comment on above: Performed By: #### B MPX, CDP #### [facility] [address] [place] [address] Sock Turner: Bala Skelton MD Potassium [Moles/Vol] 4.0 mmol/L Normal 3.7-5.[address] [facility] Comment on above: Performed By: #### B MPX, CDP #### [facility] [address] [place] [address] Sock Turner: Bala Skelton MD Sodium [Moles/Vol] 131 mmol/L Low 135-[address] [facility] Comment on above: Performed By: #### B MPX, CDP #### [facility] [address] [place] [phone] Sock Turner: Bala Skelton MD Urea nitrogen [Mass/Vol] 38 mg/dL High 6-[address] [facility] Comment on above: Performed By: #### B MPX, CDP #### [facility] [address] [place], [place] [phone] Sock Turner: Bala Skelton MD Basic Metabolic Panel w/ Ref romulo to MGon 07-19-2022 Anion gap [Moles/Vol] 14 mmol/L 9 - 17 mmol/L [employer] [facility] [employer]Con Calcium [Mass/Vol] 8.3 mg/dL Low 8.6 - 10. 4 mg/dL [facility] Chloride [Moles/Vol] 98 mmol/L 98 - 107 mmol/L [facility] CO2 [Moles/Vol] 19 mmol/L Low 20 - 31 mmol/L [facility] Creatinine [Mass/Vol] 1.71 mg/dL High 0.5 - 0.9 mg/dL [facility] GFR 38 mL/min Low 60 - PINF mL/min [employer] [facility] GFR Non- 32 mL/min Low 60 - PINF mL/min [facility] GFR/1.73 sq M.predicted MDRD (S/P/Bld) [Vol rate/Area] [facility] Comment on above: Average GFR for 50-5 9 years old: 93 mL/min/1.73sq m Chronic Kidney Disease: <60 mL/min/1.73sq m Kidney failure: <15 mL/min/1.73sq m eGFR calculated using average adult body mass. Additional eGFR calculator available at: http://www.[employer]/multiple_crcl_2012.htm Glucose [Mass/Vol] 263 mg/dL High 70 - 99 mg/dL [facility] [employer] Interpretation and review of laboratory results Abnormal [facility] Potassium [Moles/Vol] 4.0 mmol/L 3.7 - 5.3 mmol/L [facility] Sodium [Moles/Vol] 131 mmol/L Low 135 - 144 mmol/L [facility] Urea nitrogen (BldV) [Mass/Vol] 38 mg/dL High 6 - 20 mg/dL [facility] CBC with Auto Differentialon 07-19-2022 Absolute Eos # 0.16 [facility] Absolute Immature Granulocyte 0.[address] [facility] Absolute Lymph # 2.34 [facility] Absolute [place] # 0.64 [facility] RS [facility] Basophils (Bld) [#/Vol] 0.03 10*3/uL [facility] Basophils/100 WBC (Bld) 0 % 0 - 2 % [facility] Eosinophils/100 WBC (Bld) 2 % 1 - 4 % [facility] Hematocrit (Bld) [Volume fraction] 30.2 % Low 36.3 - 47.1 % [facility] Hemoglobin (Bld) [Mass/Vol] 10.4 g/dL Low 11.9 - 15.1 g/dL [facility] Immature granulocytes/100 WBC (Bld) 1 % High [address] [facility] Interpretation and review of laboratory results Abnormal [facility] Lymphocytes/100 WBC (Bld) 33 % 24 - 43 % [facility] MCH (RBC) [Entitic mass] 29.7 pg 25.2 - 33.[address] [facility] MCHC (RBC) [Mass/Vol] 34.4 g/dL 28.4 - 34.8 g/dL [facility] MCV (RBC) [Entitic vol] 86.3 fL 82.6 - 102.[address] [facility] Monocytes/100 WBC (Bld) 9 % 3 - 12 % [facility] NRBC Automated 0.0 0.0 per [address] [facility] Platelet distribution width (Bld) [Ratio] 13.6 % 11.8 - 14.4 % [facility] Platelet mean volume (Bld) [Entitic vol] 11.2 fL 8.1 - 13.[address] [facility] Platelets (Bld) [#/Vol] 410 10*3/uL [facility] RBC (Bld) [#/Vol] 3.50 10*6/uL Low 3.95 - 5.1 1 m/uL [facility] Segmented neutrophils/100 WBC (Bld) 54 % 36 - 65 % [facility] Segs Absolute 3.[address] [facility] WBC (Bld) [#/Vol] 7.1 10*3/uL [facility] CBC with Diffon 07-19-2022 Abs. Basophil 0.03 k/uL Normal 0.00-0.[address] [facility] Comment on above: Performed By: #### B MPX, CDP #### [employer] [address] [place] [address] Sock Turner: Bala Skelton MD Abs.Imm.Granulocyte 0.05 k/uL Normal 0.00-0.[address] [facility] Comment on above: Performed By: #### B MPX, CDP #### [employer] [address] [place] [address] Sock Turner: Bala Skelton MD Abs.Neutrophil (Seg) 3.83 k/uL Normal 1.50-8.[address] [facility] Comment on above: Performed By: #### B MPX, CDP #### [employer] [address] [place] [address] Sock Turner: Bala Skelton MD Basophils/100 WBC (Bld) 0 % Normal 0-[address] [facility] Comment on above: Performed By: #### B MPX, CDP #### [employer] [address] [place] [address] 64681 Sock Turner: Bala Skelton MD Eosinophils (Bld) [#/Vol] 0.16 10*3/uL Normal 0.00-0.[address] [facility] Comment on above: Performed By: #### B MPX, CDP #### [employer] [address] [place] [address] 21097 Sock Turner: Bala Skelton MD Eosinophils/100 WBC (Bld) 2 % Normal 1-[address] [facility] Comment on above: Performed By: #### B MPX, CDP #### [facility] [address] [place] [address]654 Sock Turner: Bala Skelton MD Erythrocyte distribution width (RBC) [Ratio] 13.6 % Normal 11.8-14.[address] [facility] Comment on above: Performed By: #### B MPX, CDP #### [facility] [address] [place] [address] 28445 Sock Turner: Bala Skelton MD Hematocrit (Bld) [Volume fraction] 30.2 % Low 36.3-47.[address] [facility] Comment on above: Performed By: #### B MPX, CDP #### [facility] [address] [place] [address] 60769 Sock Turner: Bala Skelton MD Hemoglobin (Bld) [Mass/Vol] 10.4 g/dL Low 11.9-15.[address] [facility] Comment on above: Performed By: #### B MPX, CDP #### [facility] [address] [place] [address] 00691 Sock Turner: Bala Skelton MD Immature granulocytes/100 WBC (Bld) 1 % High [address] [facility] Comment on above: Performed By: #### B MPX, CDP #### [facility] [address] [place] [address] 33216 Sock Turner: Bala Skelton MD Lymphocytes (Bld) [#/Vol] 2.34 10*3/uL Normal 1.10-3.[address] [facility] Comment on above: Performed By: #### B MPX, CDP #### [facility] [address] [place] [address] 12082 Sock Turner: Bala Skelton MD Lymphocytes/100 WBC (Bld) 33 % Normal 24-[address] [facility] Comment on above: Performed By: #### B MPX, CDP #### [address] [address] Sock Turner: Bala Skelton MD MCH (RBC) [Entitic mass] 29.7 pg Normal 25.2-33.[address] [facility] Comment on above: Performed By: #### B MPX, CDP #### [facility] [address] [place] [address] Sock Turner: Bala Skelton MD MCHC (RBC) [Mass/Vol] 34.4 g/dL Normal 28.4-34.[address] [facility] Comment on above: Performed By: #### B MPX, CDP #### [address] [address] Sock Turner: Bala Skelton MD MCV (RBC) [Entitic vol] 86.3 fL Normal 82.6-102.[address] [facility] Comment on above: Performed By: #### B MPX, CDP #### [address] [address] Sock Turner: Bala Skelton MD Monocytes (Bld) [#/Vol] 0.64 10*3/uL Normal 0.10-1.[address] [facility] Comment on above: Performed By: #### B MPX, CDP #### [address] [address] Sock Turner: Bala Skelton MD Monocytes/100 WBC (Bld) 9 % Normal 3-[address] [facility] Comment on above: Performed By: #### B MPX, CDP #### [address] [address] Sock Turner: Bala Skelton MD Neutrophil (Seg) 54 % Normal 36-65 [facility] Comment on above: Performed By: #### B MPX, CDP #### [address] [address] Sock Turner: Baal Skelton MD NRBC Automated 0.0 per 100 WBC Normal 0.[address] [facility] Comment on above: Performed By: #### B MPX, CDP #### [address] [address] Sock Turner: Bala Skelton MD Platelet mean volume (Bld) [Entitic vol] 11.2 fL Normal 8.1-13.[address] [facility] Comment on above: Performed By: #### B MPX, CDP #### [address] [address] Sock Turner: Bala Skelton MD Platelets (Bld) [#/Vol] 410 10*3/uL Normal 138-[address] [facility] Comment on above: Performed By: #### B MPX, CDP #### [address] [address] Sock Turner: Bala Skelton MD RBC (Bld) [#/Vol] 3.50 10*6/uL Low 3.95-5.[address] [facility] Comment on above: Performed By: #### B MPX, CDP #### [address] [address] Sock Turner: Bala Skelton MD WBC (Bld) [#/Vol] 7.1 10*3/uL Normal 3.5-11.[address] [facility] Comment on above: Performed By: #### B MPX, CDP #### [address] [address] Sock Turner: Bala Skelton MD Cult,Urineon 07-19-2022 Cult,Urine Specimen Description .CLEAN CATCH URINE Culture NO SIGNIFICANT GROWTH Report Status FINAL 07/19/[address] [facility] Comment on above: Performed By: #### A NAX, IFX, PHEP, FKLLC, PE #### [address] [address] Sock Turner: Bala Skelton MD Culture, Urineon 07-19-2022 Bacteria identified Cx Nom (U) NO SIGNIFICANT GROWTH [facility] Specimen Description .CLEAN CATCH URINE [facility] IR GUIDED NEPHROSTOMY CATH P LACEMENT LEFTon 07-19-2022 Successful percutane ous left nephroureteral stent placement via lower pole, past a large staghorn calculus, with distal pigtail tip position in the urinary bladder, as above. Findings were discussed with KASH CLAY at 4:09 pm on 07/19/2022. [facility] RIS Noman Montano MD [...] the procedure including risks, benefits, and alternatives. [place] protocol was followed. The patient's flank was [...] into the urinary bladder using a 4 Panamanian Kumpe the catheter; the Glidewire was exchanged [...] puncture of the lower pole calyx, 4 Panamanian Kumpe the catheter manipulation and glidewire extension into the urinary bladder. Subsequent images show the nephroureteral stent in satisfactory position. IMPRESSION: Successful percutaneous left nephroureteral stent placement via lower pole, past a large staghorn calculus, with distal pigtail tip position in the urinary bladder, as above. Findings were discussed with KASH CLAY at 4:09 pm on 07/19/2022. [facility] Work Phone: Radiology Study observation (narrative) [facility] [employer] Work Phone: IR GUIDED NEPHROSTOMY CATH P LACEMENT LEFTOrdered By: Noman Mullen on 07-19-2022 [facility] Work Phone: POC Glucose Fingerstickon Glucose [Mass/Vol] 278 mg/dL High 65 - 105 mg/dL [facility] [employer] Interpretation and review of laboratory results Abnormal [facility] Glucose [Mass/Vol] 231 mg/dL High 65 - 105 mg/dL [facility] Interpretation and review of laboratory results Abnormal [facility] Glucose [Mass/Vol] 301 mg/dL High 65 - 105 mg/dL [facility] Interpretation and review of laboratory results Abnormal [facility] Glucose [Mass/Vol] 283 mg/dL High 65 - 105 mg/dL [facility] Interpretation and review of laboratory results Abnormal [facility] PTon 07-19-2022 INR Coag (PPP) [Relative time] 0.9 {INR} Normal [facility] Comment on above: Result Comment: Therapeutic Range: Moderate Anticoagulant Intensity: INR = 2.0-3.0 High Anticoagulant Intensity: INR = 2.5-3.5 Performed By: #### A NAX, IFX, PHEP, FKLLC, PE #### [facility] [address] [place] [address] [phone] Sock Turner: Bala Skelton MD PT Coag (PPP) [Time] 9.8 s Normal 9.1-12.[address] [facility] Comment on above: Performed By: #### A NAX, IFX, PHEP, FKLLC, PE #### [facility] [address] [place] [address] 96970 Sock Turner: Bala Skelton MD Protime-INRon 07-19-2022 INR Coag (Bld) [Relative time] 0.9 {INR} [facility] Comment on above: Therapeutic Range: Moderate Anticoagulant Intensity: INR = 2.0-3.0 High Anticoagulant Intensity: INR = 2.5-3.5 PT Coag (PPP) [Time] 9.8 s [facility] Urinalysis w/ Microon 2021 Bilirubin, SemiQt,Ur Negative Normal NEG [facility] Comment on above: Performed By: #### A NAX, IFX, PHEP, FKLLC, PE #### [facility] [address] [place] [address] 55922 Sock Turner: Bala Skelton MD Blood, Urine LARGE Abnormal NEG [facility] Comment on above: Performed By: #### A NAX, IFX, PHEP, FKLLC, PE #### [facility] [address] [place] [address] 84517 Sock Turner: Bala Skelton MD Casts 2 TO 5 HYALINE Normal 0-[address] [facility] Comment on above: Result Comment: Refe rence range defined for non-centrifuged specimen. Performed By: #### A NAX, IFX, PHEP, FKLLC, PE #### [facility] [address] [place] [address] [phone] Sock Turner: Bala Skelton MD Clarity (U) Turbid Abnormal CLEAR [facility] Comment on above: Performed By: #### A NAX, IFX, PHEP, FKLLC, PE #### [facility] [address] [place] [address] 68177 Sock Turner: Bala Skelton MD Color (U) Yellow Normal YEL [facility] Comment on above: Performed By: #### A NAX, IFX, PHEP, FKLLC, PE #### [facility] [address] [place] [address] 00998 Sock Turner: Bala Skelton MD Epithelial cells LM Ql (Urine sed) 0 TO 2 Normal 0-[address] [facility] Comment on above: Performed By: #### A NAX, IFX, PHEP, FKLLC, PE #### [address] [address] Sock Turner: Bala Skelton MD Glucose Ql (U) 1+ Abnormal NEG [facility] Comment on above: Performed By: #### A NAX, IFX, PHEP, FKLLC, PE #### [facility] [address] [place] [address] 44875 Sock Turner: Bala Skelton MD Ketones Ql (U) Negative Normal NEG [facility] Comment on above: Performed By: #### A NAX, IFX, PHEP, FKLLC, PE #### [facility] [address] [place] [address] 86103 Sock Turner: Bala Skelton MD Leukocyte esterase Test strip Ql (U) LARGE Abnormal NEG [facility] Comment on above: Performed By: #### A NAX, IFX, PHEP, FKLLC, PE #### [facility] [address] [place] [address] 32649 Sock Turner: Bala Skelton MD Nitrite,Ur Negative Normal NEG [facility] Comment on above: Performed By: #### A NAX, IFX, PHEP, FKLLC, PE #### [address] [address] Sock Turner: Bala Skelton MD PH,Ur 5.0 Normal 5.0-8.[address] [facility] Comment on above: Performed By: #### A NAX, IFX, PHEP, FKLLC, PE #### [address] [address] Sock Turner: Bala Skelton MD Protein Ql (U) 1+ Abnormal NEG [facility] Comment on above: Performed By: #### A NAX, IFX, PHEP, FKLLC, PE #### [address] [address] Sock Turner: Bala Skelton MD Spec. [place],Ur 1.017 Normal 1.005-1.030 [facility] Comment on above: Performed By: #### A NAX, IFX, PHEP, FKLLC, PE #### [facility] [address] [place] [address] 24151 Sock Turner: Bala Skelton MD Urine RBC's 10 TO 20 Normal 0-[address] [facility] Comment on above: Result Comment: Refe rence range defined for non-centrifuged specimen. Performed By: #### A NAX, IFX, PHEP, FKLLC, PE #### [facility] [address] [place] [address] 49631 Sock Turner: Bala Skelton MD Urine WBC's TOO NUMEROUS TO COUNT Normal 0-5 [facility] Comment on above: Performed By: #### A NAX, IFX, PHEP, FKLLC, PE #### [address] [address] Sock Turner: Bala Skelton MD Urobilinogen,Ur Normal Normal NORM [facility] Comment on above: Performed By: #### A NAX, IFX, PHEP, FKLLC, PE #### [employer] [address] [place] [address] Sock Turner: Bala Skelton MD Urinalysis with Microscopico n 07-19-2022 Bilirubin Urine Negative NEGATIVE [facility] Casts UA 2 TO 5 HYALINE Refer ence range defined for non-centrifuged specimen. [facility] Color, UA Yellow Yellow [facility] Epithelial Cells UA 0 TO 2 [facility] Glucose, Ur 1+ Abnormal NEGATIVE [facility] Interpretation and review of laboratory results Abnormal [facility] Ketones Ql (U) Negative NEGATIVE [facility] Leukocyte esterase Test strip Ql (U) LARGE Abnormal NEGATIVE [facility] Nitrite, Urine Negative NEGATIVE [facility] pH, UA 5.0 5 - [address] [facility] Protein, UA 1+ Abnormal NEGATIVE [facility] RBC, UA 10 TO [address] [facility] Comment on above: Reference range defi rodger for non-centrifuged specimen. Specific [place], UA 1.017 1.005 - 1.[address] [facility] Turbidity UA Turbid Abnormal Clear [facility] Urine Hgb LARGE Abnormal NEGATIVE [facility] Urobilinogen, Urine Normal Normal [facility] WBC, UA TOO NUMEROUS TO COUNT [facility] APTTon 07-18-2022 aPTT Coag (Bld) [Time] 22.8 s Normal 20.5-30.[address] [facility] Comment on above: Result Comment: IV Heparin Therapy Range: 48.6-77.8 Performed By: #### A NAX, IFX, PHEP, FKLLC, PE #### [employer] [address] [place] [address] Sock Turner: Bala Skelton MD aPTT Coag (Bld) [Time] 22.[address] [facility] Comment on above: IV Heparin Therapy Range: 48.6-77.8 Basic Metab w/rfx MGon 07-18 (cont.) Normal [facility] Comment on above: Result Comment: Aver age GFR for 50-59 years old: 93 mL/min/1.73sq m Chronic Kidney Disease: <60 mL/min/1.73sq m Kidney failure: <15 mL/min/1.73sq m eGFR calculated using average adult body mass. Additional eGFR calculator available at: http://www.[employer]/multiple_crcl_2012.htm Performed By: #### A NAX, IFX, PHEP, FKLLC, PE #### [employer] [address] [place] [address] 61872 Sock Turner: Bala Skelton MD Anion gap [Moles/Vol] 13 mmol/L Normal 9-[address] [facility] Comment on above: Performed By: #### A NAX, IFX, PHEP, FKLLC, PE #### [facility] [address] [place] [address] Sock Turner: Bala Skelton MD Calcium [Mass/Vol] 9.4 mg/dL Normal 8.6-10.[address] [facility] Comment on above: Performed By: #### A NAX, IFX, PHEP, FKLLC, PE #### [employer] [address] [place] [address] 73163 Sock Turner: Bala Skelton MD Chloride [Moles/Vol] 100 mmol/L Normal 98-[address] [facility] Comment on above: Performed By: #### A NAX, IFX, PHEP, FKLLC, PE #### [employer] [address] [place] [address] Sock Turner: Bala Skelton MD CO2 [Moles/Vol] 24 mmol/L Normal 20-[address] [facility] Comment on above: Performed By: #### A NAX, IFX, PHEP, FKLLC, PE #### [employer] [address] [place] [address] 27580 Sock Turner: Bala Skelton MD Creatinine [Mass/Vol] 1.65 mg/dL High 0.50-0.[address] [facility] Comment on above: Performed By: #### A NAX, IFX, PHEP, FKLLC, PE #### [address] [address] Sock Turner: Bala Skelton MD GFR, Amer 40 mL/min Low >60 [facility] Comment on above: Performed By: #### A NAX, IFX, PHEP, FKLLC, PE #### [address] [address] Sock Turner: Bala Skelton MD GFR,non Amer 33 mL/min Low >[address] [facility] Comment on above: Performed By: #### A NAX, IFX, PHEP, FKLLC, PE #### [address] [address] Sock Turner: Bala Skelton MD Glucose [Mass/Vol] 239 mg/dL High 70-[address] [facility] Comment on above: Performed By: #### A NAX, IFX, PHEP, FKLLC, PE #### [address] [address] Sock Turner: Bala Skelton MD Potassium [Moles/Vol] 4.9 mmol/L Normal 3.7-5.[address] [facility] Comment on above: Performed By: #### A NAX, IFX, PHEP, FKLLC, PE #### [facility] [address] [place] [address] Sock Turner: Bala Skelton MD Sodium [Moles/Vol] 137 mmol/L Normal 135-[address] [facility] Comment on above: Performed By: #### A NAX, IFX, PHEP, FKLLC, PE #### [facility] [address] [place], [place] [phone] Sock Turner: Bala Skelton MD Urea nitrogen [Mass/Vol] 33 mg/dL High 6-[address] [facility] Comment on above: Performed By: #### A NAX, IFX, PHEP, FKLLC, PE #### [facility] [address] [place], [place] [phone] Sock Turner: Bala Skelton MD Basic Metabolic Panel w/ Ref romulo to MGon 07-18-2022 Anion gap [Moles/Vol] 13 mmol/L 9 - 17 mmol/L [employer] Calcium [Mass/Vol] 9.4 mg/dL 8.6 - 10. 4 mg/dL [employer] [facility] Chloride [Moles/Vol] 100 mmol/L 98 - 107 mmol/L [facility] CO2 [Moles/Vol] 24 mmol/L 20 - 31 mmol/L [facility] Creatinine [Mass/Vol] 1.65 mg/dL High 0.5 - 0.9 mg/dL [employer] [facility] GFR 40 mL/min Low 60 - PINF mL/min [employer] GFR Non- 33 mL/min Low 60 - PINF mL/min [employer] GFR/1.73 sq M.predicted MDRD (S/P/Bld) [Vol rate/Area] [facility] Comment on above: Average GFR for 50-5 9 years old: 93 mL/min/1.73sq m Chronic Kidney Disease: <60 mL/min/1.73sq m Kidney failure: <15 mL/min/1.73sq m eGFR calculated using average adult body mass. Additional eGFR calculator available at: http://www.[employer]/multiple_crcl_2012.htm Glucose [Mass/Vol] 239 mg/dL High 70 - 99 mg/dL [facility] [employer] Interpretation and review of laboratory results Abnormal [facility] Potassium [Moles/Vol] 4.9 mmol/L 3.7 - 5.3 mmol/L [facility] Sodium [Moles/Vol] 137 mmol/L 135 - 144 mmol/L [facility] Urea nitrogen (BldV) [Mass/Vol] 33 mg/dL High 6 - 20 mg/dL [facility] CBC AUTO DIFFon 07-18-2022 BASO # 0.0 103/ul Normal 0.0-0.1 [facility] Comment on above: Performed By: #### C BC #### [facility] [address] [address] [address] Delmer Rea Basophils/100 WBC (Bld) 0.2 % Normal 0.2-2.0 [facility] Comment on above: Performed By: #### C BC #### [facility] [address] [place] [address] Dr. Delmer Rea EO # 0.1 103/ul Normal 0.0-0.7 [facility] Comment on above: Performed By: #### C BC #### [facility] [address] [address] [address] Demler Rea Eosinophils/100 WBC (Bld) 0.7 % Critically low 0.9-7.0 [facility] Comment on above: Performed By: #### C BC #### [facility] [address] [place] [address] Dr. Delmer Rea Erythrocyte distribution width (RBC) [Ratio] 13.1 % Normal 11.0-15.0 [facility] Comment on above: Performed By: #### C BC #### [facility] [address] [place] [address] Dr. Delmer Rea Hematocrit (Bld) [Volume fraction] 36.9 % Normal 36.0-48.0 [facility] Comment on above: Performed By: #### C BC #### [facility] [address] [place] [address] Dr. Delmer Rea Hemoglobin (Bld) [Mass/Vol] 12.5 g/dL Normal 12.0-16.0 [facility] Comment on above: Performed By: #### C BC #### [facility] [address] [place] [address] Dr. Delmer Rea IG # 0.08 10e3/ul Critically high 0.00-0.03 [facility] Comment on above: Performed By: #### C BC #### [facility] [address] [place] [address] Dr. Delmer Rea IG % 0.6 % Critically high 0.0-0.5 [facility] Comment on above: Performed By: #### C BC #### [facility] [address] [place] [address] Dr. Delmer Rea LYMPH # 1.5 103/ul Normal 1.2-3.8 [facility] Comment on above: Performed By: #### C BC #### [facility] [address] [place] [address] Dr. Delmer Rea Lymphocytes/100 WBC (Bld) 11.0 % Critically low 20.5-60.0 [facility] Comment on above: Performed By: #### C BC #### [facility] [address] [place] [address] Dr. Delmer Rea MANUAL DIFF REQ NO Normal [facility] Comment on above: Performed By: #### C BC #### [facility] [address] [place] [address] Dr. Delmer Rea MCH (RBC) [Entitic mass] 29.0 pg Normal 26.7-34.0 [facility] Comment on above: Performed By: #### C BC #### [facility] [address] [place] [address] Dr. Delmer Rea MCHC (RBC) [Mass/Vol] 33.9 g/dL Normal 29.9-35.2 [facility] Comment on above: Performed By: #### C BC #### [facility] [address] [place] [address] Dr. Delmer Rea MCV (RBC) [Entitic vol] 85.6 fL Normal 81.0-99.0 [facility] Comment on above: Performed By: #### C BC #### [facility] [address] [place] [address] Dr. Delmer Rea MONO # 0.8 103/ul Normal 0.3-0.8 [facility] Comment on above: Performed By: #### C BC #### [facility] [address] [place] [address] Dr. Delmer Rea Monocytes/100 WBC (Bld) 5.9 % Normal 1.7-12.0 [facility] Comment on above: Performed By: #### C BC #### [facility] [address] [place] [address] Dr. Delmer Rea NEUT # 11.2 103/ul Critically high 1.4-6.5 [facility] Comment on above: Performed By: #### C BC #### [facility] [address] [place] [address] Dr. Delmer Rea Neutrophils/100 WBC (Bld) 81.6 % Critically high 43.0-75.0 [facility] Comment on above: Performed By: #### C BC #### [facility] [address] [place] [address] Dr. Delmer Rea Platelet mean volume (Bld) [Entitic vol] 10.3 fL Normal 9.5-13.5 [facility] Comment on above: Performed By: #### C BC #### [facility] [address] [place] [address] Dr. Delmer Rea PLT 362 103/ul Normal 150-450 [facility] Comment on above: Performed By: #### C BC #### [facility] [address] [place] [address] Dr. Delmer Rea RBC 4.31 106/ul Normal 4.20-5.40 The [facility] Comment on above: Performed By: #### C BC #### [facility] [address] [place] [address] Dr. Delmer Rea WBC 13.7 103/ul Critically high 4.0-11.0 The [facility] Comment on above: Performed By: #### C BC #### [facility] [address] [place] [address] Dr. Delmer Rea CBC with Auto Differentialon 07-18-2022 Absolute Eos # 0.08 [facility] Absolute Immature Granulocyte 0.08 [facility] Absolute Lymph # 2.13 [facility] Absolute [place] # 0.84 [facility] Basophils (Bld) [#/Vol] 0.04 10*3/uL [facility] Basophils/100 WBC (Bld) 0 % 0 - 2 % [facility] Eosinophils/100 WBC (Bld) 1 % 1 - 4 % [facility] Hematocrit (Bld) [Volume fraction] 35.4 % Low 36.3 - 47.1 % [facility] Hemoglobin (Bld) [Mass/Vol] 11.8 g/dL Low 11.9 - 15.1 g/dL [facility] Immature granulocytes/100 WBC (Bld) 1 % High [address] [facility] Interpretation and review of laboratory results Abnormal [facility] Lymphocytes/100 WBC (Bld) 17 % Low 24 - 43 % [facility] MCH (RBC) [Entitic mass] 28.6 pg 25.2 - 33.[address] [facility] MCHC (RBC) [Mass/Vol] 33.3 g/dL 28.4 - 34.8 g/dL [facility] MCV (RBC) [Entitic vol] 85.7 fL 82.6 - 102.[address] [facility] Monocytes/100 WBC (Bld) 7 % 3 - 12 % [facility] NRBC Automated 0.0 0.0 per [address] [facility] Platelet distribution width (Bld) [Ratio] 13.2 % 11.8 - 14.4 % [facility] Platelet mean volume (Bld) [Entitic vol] 10.4 fL 8.1 - 13.[address] [facility] Platelets (Bld) [#/Vol] 339 10*3/uL [facility] RBC (Bld) [#/Vol] 4.13 10*6/uL 3.95 - 5.1 1 m/uL [facility] Segmented neutrophils/100 WBC (Bld) 74 % High 36 - 65 % [facility] Segs Absolute 9.[address] [facility] WBC (Bld) [#/Vol] 12.3 10*3/uL High [facility] CBC with Diffon 07-18-2022 Abs. Basophil 0.04 k/uL Normal 0.00-0.[address] [facility] Comment on above: Performed By: #### A NAX, IFX, PHEP, FKLLC, PE #### [address] [address] Sock Turner: Bala Skelton MD Abs.Imm.Granulocyte 0.08 k/uL Normal 0.00-0.[address] [facility] Comment on above: Performed By: #### A NAX, IFX, PHEP, FKLLC, PE #### [address] [address] S[place]: Bala Skelton MD Abs.Neutrophil (Seg) 9.11 k/uL High 1.50-8.[address] [facility] Comment on above: Performed By: #### A NAX, IFX, PHEP, FKLLC, PE #### [address] [address] S[place] Turner: Bala Skelton MD Basophils/100 WBC (Bld) 0 % Normal 0-[address] [facility] Comment on above: Performed By: #### A NAX, IFX, PHEP, FKLLC, PE #### [address] [address] S[employer] Turner: Bala Skelton MD Eosinophils (Bld) [#/Vol] 0.08 10*3/uL Normal 0.00-0.[address] [facility] Comment on above: Performed By: #### A NAX, IFX, PHEP, FKLLC, PE #### [address] [address] Sock Turner: Bala Skelton MD Eosinophils/100 WBC (Bld) 1 % Normal 1-[address] [facility] Comment on above: Performed By: #### A NAX, IFX, PHEP, FKLLC, PE #### [address] [address] Sock Turner: Bala Skelton MD Erythrocyte distribution width (RBC) [Ratio] 13.2 % Normal 11.8-14.[address] [facility] Comment on above: Performed By: #### A NAX, IFX, PHEP, FKLLC, PE #### [address] [address] S[place] Turner: Bala Skelton MD Hematocrit (Bld) [Volume fraction] 35.4 % Low 36.3-47.[address] [facility] Comment on above: Performed By: #### A NAX, IFX, PHEP, FKLLC, PE #### [place] [address] Sock Turner: Bala Skelton MD Hemoglobin (Bld) [Mass/Vol] 11.8 g/dL Low 11.9-15.[address] [facility] Comment on above: Performed By: #### A NAX, IFX, PHEP, FKLLC, PE #### [address] [address] S[place]: Bala Skelton MD Immature granulocytes/100 WBC (Bld) 1 % High [address] [facility] Comment on above: Performed By: #### A NAX, IFX, PHEP, FKLLC, PE #### [address] [address] Sock Turner: Bala Skelton MD Lymphocytes (Bld) [#/Vol] 2.13 10*3/uL Normal 1.10-3.[address] [facility] Comment on above: Performed By: #### A NAX, IFX, PHEP, FKLLC, PE #### [address] [place] [address] Sock Turner: Bala Skelton MD Lymphocytes/100 WBC (Bld) 17 % Low 24-[address] [facility] Comment on above: Performed By: #### A NAX, IFX, PHEP, FKLLC, PE #### [facility] [address] [place] [address] Sock Turner: Bala Skelton MD MCH (RBC) [Entitic mass] 28.6 pg Normal 25.2-33.[address] [facility] Comment on above: Performed By: #### A NAX, IFX, PHEP, FKLLC, PE #### [facility] [address] [place] [address] Sock Turner: Bala Skelton MD MCHC (RBC) [Mass/Vol] 33.3 g/dL Normal 28.4-34.[address] [facility] Comment on above: Performed By: #### A NAX, IFX, PHEP, FKLLC, PE #### [facility] [address] [place] [address] S[employer] Turner: Bala Skelton MD MCV (RBC) [Entitic vol] 85.7 fL Normal 82.6-102.[address] [facility] Comment on above: Performed By: #### A NAX, IFX, PHEP, FKLLC, PE #### [facility] [address] [place] [address] Sock Turner: Bala Skelton MD Monocytes (Bld) [#/Vol] 0.84 10*3/uL Normal 0.10-1.[address] [facility] Comment on above: Performed By: #### A NAX, IFX, PHEP, FKLLC, PE #### [facility] [address] [place] [address] S[employer] Turner: Bala Skelton MD Monocytes/100 WBC (Bld) 7 % Normal 3-[address] [facility] Comment on above: Performed By: #### A NAX, IFX, PHEP, FKLLC, PE #### [address] [address] S[place] Turner: Bala Skelton MD Neutrophil (Seg) 74 % High 36-65 [facility] Comment on above: Performed By: #### A NAX, IFX, PHEP, FKLLC, PE #### [address] [address] Sock Turner: Bala Skelton MD NRBC Automated 0.0 per 100 WBC Normal 0.[address] [facility] Comment on above: Performed By: #### A NAX, IFX, PHEP, FKLLC, PE #### [address] [address] Sock Turner: Bala Skelton MD Platelet mean volume (Bld) [Entitic vol] 10.4 fL Normal 8.1-13.[address] [facility] Comment on above: Performed By: #### A NAX, IFX, PHEP, FKLLC, PE #### [address] [address] S[employer] Turner: Bala Skelton MD Platelets (Bld) [#/Vol] 339 10*3/uL Normal 138-[address] [facility] Comment on above: Performed By: #### A NAX, IFX, PHEP, FKLLC, PE #### [address] [address] Sock Turner: Bala Skelton MD RBC (Bld) [#/Vol] 4.13 10*6/uL Normal 3.95-5.[address] [facility] Comment on above: Performed By: #### A NAX, IFX, PHEP, FKLLC, PE #### [address] [address] Sock Turner: Bala Skelton MD WBC (Bld) [#/Vol] 12.3 10*3/uL High 3.5-11.[address] [facility] Comment on above: Performed By: #### A NAX, IFX, PHEP, FKLLC, PE #### [facility] [address] [place] [address] Sock Turner: Bala Skelton MD CT ABD/PELVIS WO CONon [...] MARAH ALCANTAR Date: 2022-07-18 12:01 Normal The [facility] SARS-CoV-2 (COVID-19) RNA KASI+probe Ql (Unsp spec) Not detected Normal NOT DETECTED The [facility] Comment on above: Result Comment: When diagnostic [...] for this test is supported by the [place] of Health and Human Service's declaration that [...] DLDL, CON, LIPID, T7, CMP, TSH #### [facility] [address] [place] [address] Dr. Delmer Rea ER URINE PROFILEon 2 Bilirubin Ql (U) Negative Normal NEGATIVE The [facility] Comment on above: Performed By: #### U MICRO, ERUR #### [facility] [address] [place] [address] Dr. Delmer Rea Clarity (U) SL CLOUDY Abnormal CLEAR The [facility] Comment on above: Performed By: #### U MICRO, ERUR #### [facility] [address] [place] [address] Dr. Delmer Rea Color (U) LT. YELLOW Normal YELLOW The [facility] Comment on above: Performed By: #### U MICRO, ERUR #### [facility] [address] [place] [address] Dr. Delmer WALKER A micrscopic examina tion will be performed if indicated. Normal The [facility] Comment on above: Performed By: #### U MICRO, ERUR #### [facility] [address] [address] [address] Delmer Rea Glucose Ql (U) 1000 mg/dl Abnormal NEGATIVE The [facility] Comment on above: Performed By: #### U MICRO, ERUR #### [facility] [address] [address] [address] Delmer Rea Hemoglobin Ql (U) LARGE Abnormal NEGATIVE The [facility] Comment on above: Performed By: #### U MICRO, ERUR #### [facility] [address] [address] [address] Delmer Rea Ketones Ql (U) Negative Normal NEGATIVE The [facility] Comment on above: Performed By: #### U MICRO, ERUR #### [facility] [address] [address] [address] Delmer Rea LEUKOCYTES SMALL Abnormal NEGATIVE The [facility] Comment on above: Performed By: #### U MICRO, ERUR #### [facility] [address] [address] [address] Delmer Rea Nitrite Ql (U) Positive Abnormal NEGATIVE The [facility] Comment on above: Performed By: #### U MICRO, ERUR #### [facility] [address] [address] [address] Delmer Rea pH (U) 5.5 [pH] Normal 5-9 The [facility] Comment on above: Performed By: #### U MICRO, ERUR #### [facility] [address] [address] [address] Delmer Rea SPEC GRAVITY 1.020 Normal 1.005-<=1.025 The [facility] Comment on above: Performed By: #### U MICRO, ERUR #### [facility] [address] [address] [address] Delmer Rea UA PROTEIN TRACE Normal NEGATIVE/ TRACE The [facility] Comment on above: Performed By: #### U MICRO, ERUR #### [facility] [address] [address] [address] Delmer Rea UR MICRO IND INDICATED Normal The [facility] Comment on above: Performed By: #### U MICRO, ERUR #### [facility] [address] [address] [address] Delmer Rea Urobilinogen Qn (U) 0.2 {Juanita'U}/dL Normal 0.2 - 1. 0 [facility] Comment on above: Performed By: #### U MICRO, ERUR #### [facility] [address] [address] [address] Delmer Rea No Panel Informationon 07-[address] [facility] POC Glucose Fingerstickon Glucose [Mass/Vol] 227 mg/dL High 65 - 105 mg/dL [facility] Interpretation and review of laboratory results Abnormal [facility] Glucose [Mass/Vol] 189 mg/dL High 65 - 105 mg/dL [facility] Interpretation and review of laboratory results Abnormal [facility] POCT glucoseOrdered By: Jason Swenson on 07-18-2022 Glucose [Mass/Vol] 189 mg/dL [facility] Interpretation and review of laboratory results Normal [facility] PROF CHEM 8 (BAS METB)on Anion gap [Moles/Vol] 13.6 mmol/L Normal The [facility] Comment on above: Performed By: #### U MICRO, ERUR #### [facility] [address] [address] [address] Delmer Rea Calcium [Mass/Vol] 9.6 mg/dL Normal 8.5-10.1 The [facility] Comment on above: Performed By: #### U MICRO, ERUR #### [facility] [address] [address] [address] Delmer Rea Chloride [Moles/Vol] 98 mmol/L Normal 98-107 The [facility] Comment on above: Performed By: #### U MICRO, ERUR #### [facility] [address] [address] [address] Delmer Rea CO2 [Moles/Vol] 26.0 mmol/L Normal 21.0-32.0 [facility] Comment on above: Performed By: #### U MICRO, ERUR #### [facility] [address] [address] [address] Delmer Rea Creatinine [Mass/Vol] 1.45 mg/dL Critically high 0.55-1.02 [facility] Comment on above: Performed By: #### U MICRO, ERUR #### [facility] [address] [address] [address] Delmer Rea EGFR-AF GUATEMALAN 46 mL/min/1.73m2 Critically low >=60 [facility] Comment on above: Performed By: #### U MICRO, ERUR #### [facility] [address] [address] [address] Delmer Rea EGFR-NON AF GUATEMALAN 38 mL/min/1.73m2 Critically low >=60 [facility] Comment on above: Performed By: #### U MICRO, ERUR #### [facility] [address] [address] [address] Delmer Rea Glucose [Mass/Vol] 314 mg/dL Critically high 74-106 [facility] Comment on above: Performed By: #### U MICRO, ERUR #### [facility] [address] [address] [address] Delmer Rea Potassium [Moles/Vol] 4.6 mmol/L Normal 3.5-5.1 [facility] Comment on above: Result Comment: spec imen slightly hemolyzed Performed By: #### U MICRO, ERUR #### [facility] [address] [address] [address] Delmer Rea Sodium [Moles/Vol] 133 mmol/L Critically low 136-145 Th [facility] Comment on above: Performed By: #### U MICRO, ERUR #### [facility] [address] [address] [address] Delmer Rea Urea nitrogen [Mass/Vol] 35.0 mg/dL Critically high 7.0-18.0 [facility] Comment on above: Performed By: #### U MICRO, ERUR #### [facility] [address] [address] [address] Delmer Rea Urea nitrogen/Creatinine [Mass ratio] 24.1 mg/mg Normal [facility] Comment on above: Performed By: #### U MICRO, ERUR #### [facility] [address] [address] [address] Delmer Rea PTon 07-18-2022 INR Coag (PPP) [Relative time] 0.9 {INR} Normal [facility] Comment on above: Result Comment: Therapeutic Range: Moderate Anticoagulant Intensity: INR = 2.0-3.0 High Anticoagulant Intensity: INR = 2.5-3.5 Performed By: #### A NAX, IFX, PHEP, FKLLC, PE #### [facility] [address] [place] [id number] Sock Turner: Bala Skelton MD PT Coag (PPP) [Time] 10.0 s Normal 9.1-12.[address] [facility] Comment on above: Performed By: #### A NAX, IFX, PHEP, FKLLC, PE #### [employer] [address] [place] [id number] Sock Turner: Bala Skelton MD Protime-INRon 07-18-2022 INR Coag (Bld) [Relative time] 0.9 {INR} [facility] Comment on above: Therapeutic Range: Moderate Anticoagulant Intensity: INR = 2.0-3.0 High Anticoagulant Intensity: INR = 2.5-3.5 PT Coag (PPP) [Time] 10 s [facility] URINE MICROSCOPIC ONLYon BACTERIA SMALL Abnormal NONE SEEN The [facility] Comment on above: Performed By: #### U MICRO, ERUR #### [facility] [address] [place], [place] [address] Dr. Delmer Rea Bacteria identified Cx Nom (U) INDICATED Normal [facility] Comment on above: Performed By: #### U MICRO, ERUR #### [facility] [address] [place] [address] Dr. Delmer Rea CAST NONE SEEN Normal NONE SEEN The [facility] Comment on above: Performed By: #### U MICRO, ERUR #### [facility] [address] [place] [address] Dr. Delmer Rea Crystals LM Nom (Urine sed) NONE SEEN Normal NONE SEEN The [facility] Comment on above: Performed By: #### U MICRO, ERUR #### [facility] [address] [place] [address] Dr. Delmer Rea Epithelial cells LM Ql (Urine sed) FEW Abnormal NONE SEEN /RARE The [facility] Comment on above: Performed By: #### U MICRO, ERUR #### [facility] [address] [place] [address] Dr. Delmer Rea MUCOUS NONE SEEN Normal NONE SEEN The [facility] Comment on above: Performed By: #### U MICRO, ERUR #### [facility] [address] [place] [address] Dr. Delmer Rea RBC 20-50 Abnormal 0-2 The [facility] Comment on above: Performed By: #### U MICRO, ERUR #### [facility] [address] [place] [address] Dr. Delmer Rea WBC 10-20 Abnormal NONE SEEN The [facility] Comment on above: Performed By: #### U MICRO, ERUR #### [facility] [address] [place] [address] Dr. Delmer Rea ALEXANDRE by IFAon 04-18-2022 Antinuclear Antibodies, IFA Negative Normal The [facility] Comment on above: Result Comment: Nega tive <1:80 Borderline 1:80 Positive >1:80 ICAP nomenclature: AC-0 For more information about Hep-2 cell patterns use ANApatterns.org, the official website for the International Consensus on Antinuclear Antibody (ALEXANDRE) Patterns (ICAP). Performed By: #### U MICRO, ERUR #### [facility] [address] [place] [address] Dr. Delmer Rea ANTISTREPTOLYSIN O AB (ASO)o n 04-16-2022 Antistreptolysin O Ab 23.8 IU/mL Normal 0.0-200.0 The [facility] Comment on above: Performed By: #### U MICRO, ERUR #### [facility] [address] [place] [address] Dr. Delmer Rea INSULINon 04-16-2022 Insulin 96.9 uIU/mL Critically high 2.6-24.9 The [facility] Comment on above: Performed By: #### L IPA, DLDL, CON, LIPID, T7, CMP, TSH #### [facility] [address] [place] [address] Dr. Delmer Rea RHEUMATOID FACTORon 04-16-20 RA Latex Turbid. 13.5 IU/mL Normal <14.0 The [facility] Comment on above: Performed By: #### L IPA, DLDL, CON, LIPID, T7, CMP, TSH #### [facility] [address] [place] [address] Dr. Delmer Rea BNPon 04-15-2022 Natriuretic peptide B (Bld) [Mass/Vol] 168.0 pg/mL Normal <=900.0 The [facility] Comment on above: Performed By: #### L IPA, DLDL, CON, LIPID, T7, CMP, TSH #### [facility] [address] [place] [address] Dr. Delmer Rea CBC AUTO DIFFon 04-15-2022 BASO # 0.0 103/ul Normal 0.0-0.1 The [facility] Comment on above: Performed By: #### L IPA, DLDL, CON, LIPID, T7, CMP, TSH #### [facility] [address] [place] [address] Dr. Delmer Rea Basophils/100 WBC (Bld) 0.4 % Normal 0.2-2.0 The [facility] Comment on above: Performed By: #### L IPA, DLDL, CON, LIPID, T7, CMP, TSH #### [facility] [address] [place] [address] Dr. Delmer Rea EO # 0.1 103/ul Normal 0.0-0.7 The [facility] Comment on above: Performed By: #### L IPA, DLDL, CON, LIPID, T7, CMP, TSH #### [facility] [address] [address] [address] Delmer Rea Eosinophils/100 WBC (Bld) 2.3 % Normal 0.9-7.0 [facility] Comment on above: Performed By: #### L IPA, DLDL, CON, LIPID, T7, CMP, TSH #### [facility] [address] [place] [address] Dr. Delmer Rea Erythrocyte distribution width (RBC) [Ratio] 11.9 % Normal 11.0-15.0 [facility] Comment on above: Performed By: #### L IPA, DLDL, CON, LIPID, T7, CMP, TSH #### [facility] [address] [place] [address] Dr. Delmer Rea Hematocrit (Bld) [Volume fraction] 37.8 % Normal 36.0-48.0 [facility] Comment on above: Performed By: #### L IPA, DLDL, CON, LIPID, T7, CMP, TSH #### [facility] [address] [place] [address] Dr. Delmer Rea Hemoglobin (Bld) [Mass/Vol] 12.7 g/dL Normal 12.0-16.0 [facility] Comment on above: Performed By: #### L IPA, DLDL, CON, LIPID, T7, CMP, TSH #### [facility] [address] [place] [address] Dr. Delmer Rea IG # 0.01 10e3/ul Normal 0.00-0.03 [facility] Comment on above: Performed By: #### L IPA, DLDL, CON, LIPID, T7, CMP, TSH #### [facility] [address] [place] [address] Dr. Delmer Rea IG % 0.2 % Normal 0.0-0.5 [facility] Comment on above: Performed By: #### L IPA, DLDL, CON, LIPID, T7, CMP, TSH #### [facility] [address] [place] [address] Dr. Delmer Rea LYMPH # 1.8 103/ul Normal 1.2-3.8 The [facility] Comment on above: Performed By: #### L IPA, DLDL, CON, LIPID, T7, CMP, TSH #### [facility] [address] [place] [address] Dr. Delmer Rea Lymphocytes/100 WBC (Bld) 34.6 % Normal 20.5-60.0 The [facility] Comment on above: Performed By: #### L IPA, DLDL, CON, LIPID, T7, CMP, TSH #### [facility] [address] [place] [address] Dr. Delmer Rea MANUAL DIFF REQ NO Normal The [facility] Comment on above: Performed By: #### L IPA, DLDL, CON, LIPID, T7, CMP, TSH #### [facility] [address] [place] [address] Dr. Delmer Rea MCH (RBC) [Entitic mass] 28.7 pg Normal 26.7-34.0 [facility] Comment on above: Performed By: #### L IPA, DLDL, CON, LIPID, T7, CMP, TSH #### [facility] [address] [place] [address] Dr. Delmer Rea MCHC (RBC) [Mass/Vol] 33.6 g/dL Normal 29.9-35.2 The [facility] Comment on above: Performed By: #### L IPA, DLDL, CON, LIPID, T7, CMP, TSH #### [facility] [address] [place] [address] Dr. Delmer Rea MCV (RBC) [Entitic vol] 85.5 fL Normal 81.0-99.0 The [facility] Comment on above: Performed By: #### L IPA, DLDL, CON, LIPID, T7, CMP, TSH #### [facility] [address] [place] [address] Dr. Delmer Rea MONO # 0.5 103/ul Normal 0.3-0.8 [facility] Comment on above: Performed By: #### L IPA, DLDL, CON, LIPID, T7, CMP, TSH #### [facility] [address] [place] [address] Dr. Delmer Rea Monocytes/100 WBC (Bld) 8.6 % Normal 1.7-12.0 [facility] Comment on above: Performed By: #### L IPA, DLDL, CON, LIPID, T7, CMP, TSH #### [facility] [address] [place] [address] Dr. Delmer Rea NEUT # 2.8 103/ul Normal 1.4-6.5 The [facility] Comment on above: Performed By: #### L IPA, DLDL, CON, LIPID, T7, CMP, TSH #### [facility] [address] [place] [address] Dr. Delmer Rea Neutrophils/100 WBC (Bld) 53.9 % Normal 43.0-75.0 [facility] Comment on above: Performed By: #### L IPA, DLDL, CON, LIPID, T7, CMP, TSH #### [facility] [address] [place] [address] Dr. Delmer Rea Platelet mean volume (Bld) [Entitic vol] 10.2 fL Normal 9.5-13.5 [facility] Comment on above: Performed By: #### L IPA, DLDL, CON, LIPID, T7, CMP, TSH #### [facility] [address] [place] [address] Dr. Delmer Rea PLT 326 103/ul Normal 150-450 The [facility] Comment on above: Performed By: #### L IPA, DLDL, CON, LIPID, T7, CMP, TSH #### [facility] [address] [place] [address] Dr. Delmer Rea RBC 4.42 106/ul Normal 4.20-5.40 The [facility] Comment on above: Performed By: #### L IPA, DLDL, CON, LIPID, T7, CMP, TSH #### [facility] [address] [place] [address] Dr. Delmer Rea WBC 5.2 103/ul Normal 4.0-11.0 The [facility] Comment on above: Performed By: #### L IPA, DLDL, CON, LIPID, T7, CMP, TSH #### [facility] [address] [address] [address] Delmer Rea CRPon 04-15-2022 CRP [Mass/Vol] mg/L Normal <=1.0 [facility] Comment on above: Performed By: #### L IPA, DLDL, CON, LIPID, T7, CMP, TSH #### [facility] [address] [address] [address] Delmer Rea FREE THYROXINE INDEX T7on FTI 5.07 Critically high 1.30-4.50 [facility] Comment on above: Performed By: #### L IPA, DLDL, CON, LIPID, T7, CMP, TSH #### [facility] [address] [address] [address] Delmer Rea T3U 37.0 % Normal 30.0-39.0 [facility] Comment on above: Performed By: #### L IPA, DLDL, CON, LIPID, T7, CMP, TSH #### [facility] [address] [place] [address] Dr. Delmer Rea T4 [Mass/Vol] 13.70 ug/dL Normal 4.80-13.90 [facility] Comment on above: Performed By: #### L IPA, DLDL, CON, LIPID, T7, CMP, TSH #### [facility] [address] [place] [address] Dr. Delmer Rea GLYCOHEMOGLOBIN A1Con 2021 ADA RECOMMENDATION SEE BELOW Normal [facility] Comment on above: Result Comment: ADA RECOMMENDED LIMIT 4.0 - 6.0 ADA THERAPEUTIC TARGET < 7.0 ACTION SUGGESTED > 7.0 Performed By: #### L IPA, DLDL, CON, LIPID, T7, CMP, TSH #### [facility] [address] [place] [address] Dr. Delmer Rea Glucose [Mass/Vol] 174 mg/dL Normal [facility] Comment on above: Performed By: #### L IPA, DLDL, CON, LIPID, T7, CMP, TSH #### [facility] [address] [place] [address] Dr. Delmer Rea HbA1c (Bld) [Mass fraction] 7.7 % Critically high 4.5-6.2 [facility] Comment on above: Performed By: #### L IPA, DLDL, CON, LIPID, T7, CMP, TSH #### [facility] [address] [address] [address] Delmer Rea IRONon 04-15-2022 Iron [Mass/Vol] 84.0 ug/dL Normal 50.0-170.0 [facility] Comment on above: Performed By: #### U MICRO, ERUR #### [facility] [address] [address] [address] Delmer Rea LIPID PROFILEon 04-15-2022 CHOL-HDL RATIO NORM SEE BELOW Normal [facility] Comment on above: Result Comment: 3.3 - 4.4 LOW RISK 4.4 - 7.1 AVERAGE RISK 7.1 - 11.0 MODERATE RISK >11.0 HIGH RISK Performed By: #### L IPA, DLDL, CON, LIPID, T7, CMP, TSH #### [facility] [address] [address] [address] Delmer Rea Cholesterol [Mass/Vol] 239 mg/dL Critically high <=200 [facility] Comment on above: Performed By: #### L IPA, DLDL, CON, LIPID, T7, CMP, TSH #### [facility] [address] [address] [address] Delmer Rea Cholesterol in HDL [Mass/Vol] 43 mg/dL Normal 40-60 [facility] Comment on above: Performed By: #### L IPA, DLDL, CON, LIPID, T7, CMP, TSH #### [facility] [address] [address] [address] Delmer Rea Cholesterol in LDL [Mass/Vol] 131.8 mg/dL Normal [facility] Comment on above: Performed By: #### L IPA, DLDL, CON, LIPID, T7, CMP, TSH #### [facility] [address] [address] [address] Delmer Rea Cholesterol.total/C holesterol in HDL [Mass ratio] 5.6 {ratio} Normal [facility] Comment on above: Performed By: #### L IPA, DLDL, CON, LIPID, T7, CMP, TSH #### [facility] [address] [address] [address] Delmer Rea HDL NORMAL > or = 60 mg/dl - LO W CARDIOVASCULAR RISK <40 mg/dl - HIGH CARDIOVASCULAR RISK Normal [facility] Comment on above: Performed By: #### L IPA, DLDL, CON, LIPID, T7, CMP, TSH #### [facility] [address] [address] [address] Delmer Rea LDL CALC NORMAL SEE BELOW Normal [facility] Comment on above: Result Comment: <100 mg/dl OPTIMAL 100 - 129 mg/dl NEAR OR ABOVE OPTIMAL 130 - 159 mg/dl BORDERLINE HIGH 160 - 189 mg/dl HIGH >190 mg/dl VERY HIGH Performed By: #### L IPA, DLDL, CON, LIPID, T7, CMP, TSH #### [facility] [address] [address] [address] Delmer Rea Triglyceride [Mass/Vol] 321 mg/dL Critically high <=150 [facility] Comment on above: Performed By: #### L IPA, DLDL, CON, LIPID, T7, CMP, TSH #### [facility] [address] [address] [address] Delmer Rea VLDL CALC 64.2 mg/dL Normal [facility] Comment on above: Performed By: #### L IPA, DLDL, CON, LIPID, T7, CMP, TSH #### [facility] [address] [address] [address] Delmer Rea PROF 14(COMP METB)on 022 Albumin [Mass/Vol] 3.6 g/dL Normal 3.4-5.0 [facility] Comment on above: Performed By: #### L IPA, DLDL, CON, LIPID, T7, CMP, TSH #### [facility] [address] [address] [address] Delmer Rea Albumin/Globulin [Mass ratio] 0.9 {ratio} Normal [facility] Comment on above: Performed By: #### L IPA, DLDL, CON, LIPID, T7, CMP, TSH #### [facility] [address] [address] [address] Delmer Rea ALP [Catalytic activity/Vol] 98 U/L Normal 46-116 [facility] Comment on above: Performed By: #### L IPA, DLDL, CON, LIPID, T7, CMP, TSH #### [facility] [address] [address] [address] Delmer Rea ALT [Catalytic activity/Vol] 21 U/L Normal 14-59 [facility] Comment on above: Performed By: #### L IPA, DLDL, CON, LIPID, T7, CMP, TSH #### [facility] [address] [place] [address] Dr. Delmer Rea Anion gap [Moles/Vol] 15.8 mmol/L Normal [facility] Comment on above: Performed By: #### L IPA, DLDL, CON, LIPID, T7, CMP, TSH #### [facility] [address] [address] [address] Delmer Rea AST [Catalytic activity/Vol] 10 U/L Critically low 15-37 [facility] Comment on above: Performed By: #### L IPA, DLDL, CON, LIPID, T7, CMP, TSH #### [facility] [address] [place] [address] Dr. Delmer Rea Bilirubin [Mass/Vol] 0.6 mg/dL Normal 0.2-1.0 [facility] Comment on above: Performed By: #### L IPA, DLDL, CON, LIPID, T7, CMP, TSH #### [facility] [address] [address] [address] Delmer Rea Calcium [Mass/Vol] 9.4 mg/dL Normal 8.5-10.1 [facility] Comment on above: Performed By: #### L IPA, DLDL, CON, LIPID, T7, CMP, TSH #### [facility] [address] [place] [address] Dr. Delmer Rea Chloride [Moles/Vol] 105 mmol/L Normal 98-107 [facility] Comment on above: Performed By: #### L IPA, DLDL, CON, LIPID, T7, CMP, TSH #### [facility] [address] [address] [address] Delmer Rea CO2 [Moles/Vol] 26.2 mmol/L Normal 21.0-32.0 [facility] Comment on above: Performed By: #### L IPA, DLDL, CON, LIPID, T7, CMP, TSH #### [facility] [address] [address] [address] Delmer Rea Creatinine [Mass/Vol] 1.26 mg/dL Critically high 0.55-1.02 [facility] Comment on above: Performed By: #### L IPA, DLDL, CON, LIPID, T7, CMP, TSH #### [facility] [address] [place] [address] Dr. Delmer Rea EGFR-AF GUATEMALAN 54 mL/min/1.73m2 Critically low >=60 [facility] Comment on above: Performed By: #### L IPA, DLDL, CON, LIPID, T7, CMP, TSH #### [facility] [address] [place] [address] Dr. Delmer Rea EGFR-NON AF GUATEMALAN 45 mL/min/1.73m2 Critically low >=60 [facility] Comment on above: Performed By: #### L IPA, DLDL, CON, LIPID, T7, CMP, TSH #### [facility] [address] [address] [address] Delmer Rea Globulin (S) [Mass/Vol] 3.9 g/dL Normal [facility] Comment on above: Performed By: #### L IPA, DLDL, CON, LIPID, T7, CMP, TSH #### [facility] [address] [address] [address] Delmer Rea Glucose [Mass/Vol] 125 mg/dL Critically high 74-106 [facility] Comment on above: Performed By: #### L IPA, DLDL, CON, LIPID, T7, CMP, TSH #### [facility] [address] [address] [address] Delmer Rea Potassium [Moles/Vol] 4.0 mmol/L Normal 3.5-5.1 [facility] Comment on above: Performed By: #### L IPA, DLDL, CON, LIPID, T7, CMP, TSH #### [facility] [address] [place] [address] Dr. Delmer Rea Protein [Mass/Vol] 7.5 g/dL Normal 6.4-8.2 [facility] Comment on above: Performed By: #### L IPA, DLDL, CON, LIPID, T7, CMP, TSH #### [facility] [address] [address] [address] Delmer Rea Sodium [Moles/Vol] 143 mmol/L Normal 136-145 [facility] Comment on above: Performed By: #### L IPA, DLDL, CON, LIPID, T7, CMP, TSH #### [facility] [address] [place] [address] Dr. Delmer Rea Urea nitrogen [Mass/Vol] 34.0 mg/dL Critically high 7.0-18.0 [facility] Comment on above: Performed By: #### L IPA, DLDL, CON, LIPID, T7, CMP, TSH #### [facility] [address] [place] [address] Dr. Delmer Rea Urea nitrogen/Creatinine [Mass ratio] 27.0 mg/mg Normal The [facility] Comment on above: Performed By: #### L IPA, DLDL, CON, LIPID, T7, CMP, TSH #### [facility] [address] [place] [address] Dr. Delmer Rea TSHon 04-15-2022 TSH 0.009 uIU/mL Critically low 0.358-3.740 [facility] Comment on above: Performed By: #### L IPA, DLDL, CON, LIPID, T7, CMP, TSH #### [facility] [address] [place] [address] Dr. Delmer Rea TSH RANGE SEE BELOW Normal [facility] Comment on above: Result Comment: <0.3 4 UIU/ml HYPERTHYROID 0.34-5.60 UIU/ml EUTHYROID >5.60 UIU/ml HYPOTHYROID Performed By: #### L IPA, DLDL, CON, LIPID, T7, CMP, TSH #### [facility] [address] [address] [address] Delmer Rea URIC ACID SERUMon 04-15-2022 Urate [Mass/Vol] 7.1 mg/dL Critically high 2.6-6.0 [facility] Comment on above: Performed By: #### L IPA, DLDL, CON, LIPID, T7, CMP, TSH #### [facility] [address] [address] [address] Delmer Rea VITAMIN D 25 OHon 04-15-2022 VIT D 25-OH 23.8 ng/mL Normal The [facility] Comment on above: Performed By: #### U MICRO, ERUR #### [facility] [address] [address] [address] Delmer Rea VIT D RANGES SEE BELOW Normal [facility] Comment on above: Result Comment: <20 ng/mL Vit D deficient 20 - <30 ng/mL Vit D insufficient 30 - 100 ng/mL Vit D sufficient >100 ng/mL Potential Toxicity Performed By: #### U MICRO, ERUR #### [facility] [address] [address] [address] Delmer Bowman [facility] -------- ASA THOMPSON ([id number]) 1970 F Date Time Provider Department 11/09/21 [...] SYRINGE ULTRA-FINE) 1 mL 31 gauge x /16 Inject 1 Syringe subcutaneously twice daily. - [...] 06/21/2021 Encounter Status:Closed by ABRAHAM PACHECO on 1/4/22 [facility] 10-05-2021 CNPN Telephone (GENBMI) -------- ASA THOMPSON ([id number]) 1970 F Date Time Provider Department 10/05/21 ABRAHAM PACHECOBritney During your visit today, we recorded the [...] Encounter Status:Closed by [facility]CO [facility] (GENBMI[facility] -------- ASA THOMPSON ([id number]) 1970 F Date Time Provider Department 07/29/21 ABRAHAM PACHECO During your visit today, we [...] BMI Follow Up [1566] Prescriptions as of 07/29/2021 - blood sugar [...] Encounter Status:Closed by ABRAHAM PACHECO on 07/29/21 [facility] (GENBMI[facility] -------- ASA THOMPSON ([id number]) 1970 F Date Time Provider Department 07/14/21 ARNABRAHAM BROWER During your visit today, we recorded the following information about you: Abraham Pacheco RN 07/14/2021 3:04 PM Addendum Follow up call placed to patient, no answer phone; left voice message with my call back phone number. [phone] Cancelled surgery scheduled for 07/15/21. No call [...] Status:Closed by ABRAHAM PACHECO on 07/14/21 Normal [facility] CNPN Telephone (GSPSMN) -------- ASA THOMPSON ([id number]) 1970 F Date Time Provider Department 07/14/21 JEANNINE TAMEZ [facility] During your visit today, we recorded the following information about you: Jeannine Tamez, PhD 07/14/2021 1:02 PM Signed [facility] Attempted to [...] Encounter Status:Closed by JEANNINE TAMEZ on 07/14/21 [facility] CNPN Telephone (GENBMI) -------- ASA THOMPSON ([id number]) 1970 F Date Time Provider Department 07/13/21 [...] Encounter Status:Closed by ABRAHAM PACHECO on 07/13/21 [facility] 07-08-2021 CNPN Telephone (GENBMI) -------- ASA THOMPSON ([id number]) 1970 F Date Time Provider Department 07/08/21 [...] protein shakes. Patient reports has not read [employer] message from Nutrition but will do so [...] Encounter Status:Closed by ABRAHAM PACHECO on 07/15/21 Normal [facility] Telephone ([facility]) -------- LUCASA SPANN ([id number]) 1970 F Date Time Provider Department 07/08/21 [...] Encounter Status:Closed by ABRAHAM PACHECO on 07/08/21 [facility] CNPN Telephone (GENBMI) -------- ASA THOMPSON ([id number]) 1970 F Date Time Provider Department 07/07/21 [...] once daily. - HUMULIN 70/30 100 unit/mL (-30) - levothyroxine (SYNTHROID) 125 mcg tablet Take [...] Encounter Status:Closed by ABRAHAM PACHECO on 07/07/21 [facility] -------- ASA THOMPSON ([id number]) 1970 F Date Time Provider Department 07/05/21 [...] Encounter Status:Closed by ABRAHAM PACHECO on 07/06/21 [facility] Gr[facility]ie 06-21-2021 CNPN Telephone (GENBMI) -------- ASA THOMPSON ([id number]) 1970 F Date Time Provider Department 06/21/21 [...] arrival time. Other Instructions Reviewed: Gave patient [phone] My Chart Support line phone number Skin [...] daily. - (more content not included)... Normal [facility] 05-25-2021 CNPN Telephone (GENBMI) -------- ASA THOMPSON ([id number]) 1970 F Date Time Provider Department 05/25/21 ABRAHAM PACHECO During your visit today, we recorded the following information about you: Abraham Pacheco RN 05/25/2021 4:23 PM Signed [facility] COORDINATION SURGERY APPROVAL CALL Received e-mail confirmation of insurance approval for bariatric surgery.Pre-operative call placed to the patient, this RN spoke with patient and agreed upon a surgery date of July 15 2021. Surgical episode request sent to [facility] surgery scheduling. -Patient instructed to [...] instructed to fax FMLA forms to medical sociologist and allow 7-10 days for completion. Radha [...] Status:Closed by ABRAHAM PACHECO on 05/25/21 Normal [facility] 04-26-2021 CNCO Letter Text Normal [facility] CNCO Letter Text Normal [facility] CNCOon 04-12-2021 CNCO Letter Text Normal [facility] Vital Signs Date Time Vital Sign Value Performing Clinician Facility 12-27-2022 15:00-0500 Body height 160.02 cm Aime Capone Other [employer] Other 12-27-2022 15:00-0500 Body mass index (BMI) [Ratio] 44.63 kg/m2 Aime Capone Other [employer] Other 12-27-2022 15:00-0500 Body weight 114.31 kg Aime Capone Other [employer] Other 12-27-2022 15:00-0500 Diastolic blood pressure 61 mm[Hg] Aime Capone Other [employer] Other 12-27-2022 15:00-0500 Respiratory rate 18 /min Aime Denaejenny Other [employer] Other 12-27-2022 15:00-0500 SaO2% (BldA) [Mass fraction] 97 % Aime Capone Other [employer] Other 12-27-2022 15:00-0500 Systolic blood pressure 127 mm[Hg] Aziz Bakhous Other [facility] [employer] Other 07-26-2022 10:45-0400 Body temperature 98.2 [degF] Bishnu Horner MD Work Phone: [employer] 07-26-2022 10:45-0400 Diastolic blood pressure 65 mm[Hg] Bishnu Horner MD Work Phone: [employer] [facility] 07-26-2022 10:45-0400 Heart rate 84 /min Bishnu Horner MD Work Phone: [employer] [facility] 07-26-2022 10:45-0400 Respiratory rate 16 /min Bishnu Horner MD Work Phone: [employer] [facility] 07-26-2022 10:45-0400 SaO2% (BldA) [Mass fraction] 98 % Bishnu Horner MD Work Phone: [employer] [facility] 07-26-2022 10:45-0400 Systolic blood pressure 161 mm[Hg] Bishnu Horner MD Work Phone: [employer] 07-25-2022 18:02-0400 Body height 165.1 cm Bishnu Horner MD Work Phone: [employer] 07-25-2022 18:02-0400 Body mass index (BMI) [Ratio] 39.94 kg/m2 Bishnu Horner MD Work Phone: [employer] [facility] 07-25-2022 18:02-0400 Body weight 108.86 kg Bishnu Horner MD Work Phone: [employer] [facility] 07-22-2022 11:28-0400 Body temperature 98.2 [degF] Aime Bird MD [facility] [employer] 07-22-2022 11:28-0400 Diastolic blood pressure 72 mm[Hg] Aime Bird MD [facility] [employer] [facility] 07-22-2022 11:28-0400 Heart rate 92 /min Aime Bird MD [facility] [employer] 07-22-2022 11:28-0400 Respiratory rate 12 /min [facility] 07-22-2022 11:28-0400 SaO2% (BldA) [Mass fraction] 96 % Aime Bird MD [facility] 07-22-2022 11:28-0400 Systolic blood pressure 155 mm[Hg] Aime Bird MD [facility] 07-18-2022 20:54-0400 Body height 165.1 cm Aime Bird MD [facility] 07-18-2022 20:54-0400 Body mass index (BMI) [Ratio] 42.56 kg/m2 Aime Bird MD [facility] 07-18-2022 20:54-0400 Body weight 116 kg Aime Bird MD [facility] Encounters Encounter Date Encounter Type Care Provider Facility Start: 03-10-2023 End: 03-11-2023 ambulatory [facility] Facility:H1 Start: 01-03-2023 ambulatory [facility] Facility:H 1 Start: 12-28-2022 End: 12-29-2022 ambulatory [facility] Facility:H1 Start: 12-27-2022 End: 12-27-2022 ambulatory [facility] Other [employer] Other Start: 12-27-2022 Office outpatient ne w 30 minutes [facility] Start: 12-01-2022 End: 12-02-[address] GARRY RAMOS . Facility:H1 Start: 11-26-2022 End: 11-26-[address] GARRY RAMOS . Facility:H1 Start: 11-25-2022 End: 11-26-[address] GARRY RAMOS . Facility:H1 Start: 11-11-2022 ambulatory [facility] Start: 10-26-2022 End: 10-27-2022 Evaluation and management of inpatient [facility] Start: 10-20-2022 ambulatory [facility] Start: 10-13-2022 ambulatory [facility] Start: 10-13-[facility] Start: 09-27-2022 End: 09-28-2022 ambulatory [facility] Start: 09-27-2022 End: 09-27-2022 ambulatory [facility] Start: 09-23-[address] GARRY RAMOS . Facili ty:H1 Start: 09-22-2022 End: 09-23-2022 ambulatory [facility] Start: 09-12-2022 End: 09-12-[address] GARRY ARMOS . Facility: Start: 08-18-2022 ambulatory [facility] Start: 08-17-2022 End: 08-17-2022 ambulatory LUTHER [facility] Start: 08-05-2022 End: 08-08-2022 ambulatory CHRISTI CHANCE [facility] Start: 07-25-2022 End: 07-26-2022 ambulatory GARRY Cantor Thai [facility] Start: 07-25-2022 End: 07-26-2022 Emergency department patient visit Bishnu Horner MD Work Phone: [facility] 3C Observation Comment on above: Nephrostomy complica tion (HCC) (Primary Dx) Start: 07-18-2022 End: 07-22-2022 Evaluation and management of inpatient CHINO DEMPSEY [facility] Start: 07-18-2022 End: 07-22-2022 Evaluation and management of inpatient [facility] Comment on above: Kidney stone (Primar y Dx); Acute pyelonephritis; Left renal atrophy; Staghorn renal calculus; OMAR (acute kidney injury) (HCC) Start: 07-18-2022 End: 07-18-[address] GARRY RAMOS . Facility:H1 Start: 04-15-2022 End: 04-16-[address] GARRY RAMOS . Facility:H1 Start: 04-01-[address] GARRY RAMOS . Facili ty:H1 Start: 02-15-2019 End: 02-22-2019 ambulatory GARRY RAMOS Facility:[facility] Procedures Date Procedure Procedure Detail Performing Clinician Start: 07-26-2022 Glucose blood reagent strip Paloma Arceo MD Work Phone: Start: 07-26-2022 Remove int dwell ure teral stent transurethral Paloma Arceo MD Work Phone: Start: 07-26-2022 Prothrombin time Oscar Strbich DO Work Phone: Start: 07-25-2022 Radiologic exam [...] Lake[place] stefan Ferrari MD Work Phone: Start: 07-21-2022 Glucose blood reagent strip Livia Cantrell MD Work Phone: Start: 07-21-2022 BASIC METABOLIC PANE L W/ REFLEX TO MG FOR LOW K Brooklynn Ferrari MD Work Phone: Start: 07-21-2022 Assay of lactate Preetr stefan Ferrari MD Work Phone: Start: 07-21-2022 Glucose blood reagent strip Livia Cantrell MD Work Phone: Start: 07-21-2022 End: 07-21-2022 Assay of lactate Brooklnyn Ferrari MD Work Phone: Start: 07-21-2022 BASIC METABOLIC PANE L W/ REFLEX TO MG FOR LOW K Brooklynn Ferrari MD Work Phone: Start: 07-21-2022 Assay of lactate Lisa Ferrari MD Work Phone: Start: 07-20-2022 BASIC METABOLIC PANE L W/ REFLEX TO MG FOR LOW K Brooklynn Ferrari MD Work Phone: Start: 07-20-2022 Glucose blood reagent strip Livia Cantrell MD Work Phone: Start: 07-20-2022 Assay of lactate Lakeetr stefan Ferrari MD [...] Visit Infectious Diseases Urban Noriega MD [address] [place] [address] [facility], [facility]. Start: 08-03-2022 End: 07-20-2023 NM KIDNEY W FLOW AND FUNCTION W PHARMACOLOGICAL INTERVENTION NM KIDNEY W FLOW AND FUNCTION W PHARMACOLOGICAL INTERVENTION Imaging Routine Left renal atrophy Staghorn renal calculus Expected: 08/03/2022, Expires: 07/20/2023 [employer] Work Phone: Comment on above: Expected: 08/03/2022 , Expires: 07/20/2023 Start: 07-29-2022 End: 07-22-2023 Basic metabolic 2000 panel - Serum or Plasma Basic Metabolic Panel Lab Routine OMAR (acute kidney injury) (HCC) Expected: 07/29/2022, Expires: 07/22/2023 [employer] Work Phone: Comment on above: Expected: 07/29/2022 , Expires: 07/22/2023 Start: 07-07-2022 Influenza vaccination Flu vaccine (# 1) [employer] Start: 2021 Screening for malign ant neoplasm of breast Breast cancer screen [employer] Start: 2021 Shingles vaccine (1 of 2) Shingles vaccine (1 of 2) [employer] Start: 2016 Screening for malign ant neoplasm of colon [employer] Start: 2001 Screening for malign ant neoplasm of cervix [employer] Start: 1992 Screening for malign ant neoplasm of cervix Pap smear [employer] Start: 1990 DTaP/Tdap/Td vaccine (1 - Tdap) DTaP/Tdap/Td vaccine (1 - Tdap) [employer] Start: 1990 Hepatitis B vaccine (1 of 3 - Risk 3-dose series) Hepatitis B vaccine (1 of 3 - Risk 3-dose series) [employer] Start: 1989 Diabetic retinal exam Diabetic retin al exam [facility] [employer] Start: 1989 Urine screening for protein Diabetic microalbuminuria test [facility] [employer] Start: 1986 HIV screening HIV screen [facility] [employer] Start: 1983 Depression Monitoring Depression Mon itoring [facility] [employer] Start: 1981 Diabetic foot examination Diabetic foot exam [facility] [employer] Start: 1981 Hemoglobin A1c measurement A1C test (Diabetic or Prediabetic) [facility] [employer] Start: 1981 Lipid panel Lipids [facility] [employer] Start: 1977 Pneumococcal 0-64 ye ars Vaccine (1 - PCV) Pneumococcal 0-64 years Vaccine (1 - PCV) [facility] [employer] Start: 03-26-1972 COVID-19 Vaccine (#1) COVID-19 Vacci ne (#1) [facility] [employer] End: 08-01-2022 Basic Metabolic Panel w/ Reflex to MG Basic Metabolic Panel w/ Reflex to MG Lab Routine Daily for 14 Occurrences starting 07/19/2022 until 08/01/2022, 3 completed [facility] [employer] Work Phone: Comment on above: Daily for 14 Occurre nces starting 07/19/2022 until 08/01/2022, 3 completed Culture, Blood 1 [facility] [employer] Phone: Culture, Blood 1 Culture, Blood 1 Microbiology STAT 07/20/2022 4:26 AM EDT [facility] [employer] Phone: Culture, Blood 1 [facility] [employer] Phone: Culture, Blood 2 Culture, Blood 2 Microbiology STAT 07/20/2022 4:26 AM EDT [facility] [employer] Phone: Glucose [Mass/volume ] in Serum or Plasma [facility] [employer] Phone: Comment on above: 4X Daily (AC & HS) u ntil discontinued starting 07/18/2022, 1 completed As Needed until disc ontinued starting 07/18/2022 Glucose [Mass/volume ] in Serum or Plasma POCT Glucose Point of Care Testing STAT As Needed until discontinued starting 07/26/2022 [employer] Phone: Comment on above: As Needed until disc ontinued starting 07/26/2022 Oxygen therapy [[facility] Data Set] Initiate Oxygen Therapy Protocol Respiratory Care Routine As Needed until discontinued starting 07/18/2022 [employer] Phone: Comment on above: As Needed until disc ontinued starting 07/18/2022 Oxygen therapy [[facility] Data Set] Initiate Oxygen Therapy Protocol Respiratory Care Routine Daily until discontinued starting 07/25/2022 [employer] Phone: Comment on above: Daily until disconti nued starting 07/25/2022 Immunizations Immunization Date Immunization Notes Care Provider Rick mcginnis 08-19-2016 tetanus toxoid, reduced diphtheria toxoid, and acellular pertussis vaccine, adsorbed Aziz Bakhous Other [employer] Other Payers Date Payer Category Payer Unknown [id number] 2.16.8 [id number] 1970 Unknown [id number] 2.16.8 [id number] 1970 Unknown [id number] 2.16. [id number] 1971 Unknown [id number] 2.16. [id number] 1971 Unknown [id number] 2.16.84 [id number] 1971 Unknown [id number] 2.16.84 0.1.646628.3.579.2.593 1971 Unknown [id number] 2.16.84 0.1.885723.3.579.2.593 1971 Unknown [id number] 2.16.84 0.1.525828.3.579.2.593 1971 Unknown [id number] 2.16.84 0.1.162958.3.579.2.593 1971 Unknown [id number] 2.16.84 0.1.639641.3.579.2.593 1971 Unknown [id number] 2.16.84 0.1.433124.3.579.2.593 1971 Unknown [id number] 2.16.84 0.1.030886.3.579.2.593 1971 Unknown [id number] 2.16.84 0.1.098586.3.579.2.593 1971 Unknown [id number] 2.16.84 0.1.341167.3.579.2.593 1971 Unknown [id number] 2.16.84 0.1.138943.3.579.2.593 1958 Self-pay [id number] 1958 Unknown [id number] 1958 Unknown [id number] Self-pay Self Pay [id number] Unknown [id number] Social History Date Type Detail Facility Tobacco smoking status [facility] Unknown if ever smoked [facility] Start: 1970 Sex Assigned At Female F [facility] Tobacco smoking status [facility] Tobacco smoking consumption unknown [employer] Phone: Start: 1970 Sex Assigned At Not on file B ON [employer] Phone: Start: 07-08-2022 End: 07-25-2022 Exposure to SARS-CoV-2 (event) Not sure [facility] [place] Sex Assigned At Sex Assigned At Bir th [employer] Other Goals Date Patient Goal Desired Activity [...] pyonephritis. Patient follows with urology clinic at [facility] Dec, Solitary kidney, acquired (ICD-10 - Z90.5) [...] home and to follow a low-salt diet [employer] Other 01-06-2023 Note Attestation signed by Castillo [...] of left kidney CVA (cerebral vascular accident) ([facility] 2021 hisotry of blood clot 5 yrs ago Diabetes mellitus ([facility]) Kidney stone Past Surgical History: Procedure Laterality [...] to nephrology as well Kash Clay MD [facility] Urology [id number] Note Attestation signed by Castillo Almeida [...] BP Temp Temp src Pulse Resp SpO2 10/27/22 0810 -- -- -- 86 (!) 8 93 [...] -- -- 88 (!) 9 94 % 10/27/22599 108/57 -- -- 91 15 95 % [...] 153/75 -- -- 108 20 92 % 10/26/22 2000 153/66 -- -- 107 15 94 % [...] nephrectomy Good UOP Ab (more content not included)...[facility]12-21-2022 NotePatient: Asa L Bucklew Vitals Value Taken Time BP 145/82 10/26/22 1756 Temp 36.1 10/26/22 1954 Pulse 105 10/26/22 1815 Resp 16 10/26/22 1815 SpO2 93 % 10/26/221814 Vitals shown include [...] anesthesia complications: Patient has no apparent anesthesia complicationsUnMount St. [facility]12-[facility] NotePatient: Asa L Bucklew Procedure Summary Date: 10/26/22 Room / Location: [facility] OPERATING ROOM 13 / [facility] Operating Room Anesthesia Start: 838 Anesthesia Stop: 1421 Procedure: NEPHRECTOMY, ROBOT-ASSISTED (Left) Diagnosis: Atrophic kidney (Atrophic kidney [N26.1]) Surgeons: Castillo Almeida MD Responsible Provider: Juan Luis Kaba MD Anesthesia Type: Not recorded ASA Status: Not recorded Anesthesia Type: No value filed. Vitals Value Taken Time BP 145/82 10/26/221755 Temp 36.7 10/26/221758 Pulse 103 10/26/221758 Resp 17 10/26/221758 SpO2 93 % 10/26/221758 [...] Comments: Answers questions appropriately No notable events documented.[facility]12-21-2022 Note Patient: Asa Thompson Procedure Information Anesthesia Start Date/Time: 10/26/22 0839 Procedure: NEPHRECTOMY, ROBOT-ASSISTED (Left) Location: [facility] OPERATING ROOM 13 / [facility] Operating Room Surgeons: Castillo Almeiad MD Relevant Problems Anesthesia (-) History of anesthesia complications Cardio (+) HTN (hypertension) /Renal (+) Atrophic kidney (+) Hydronephrosis due to obstruction of ureter (+) Nonfunctioning kidney (+) Staghorn calculus Neuro/Psych (+) CVA (cerebral vascular accident) ([facility]) Clinical information reviewed: Tobacco Allergies [...] products. Plan discussed with CAA. Additional Equipment RequestsUnMount St. [facility]12-21-2022 Note Peripheral Block Patient location during procedure: OR Start time: 10/26/2022 2:00 PM End time: 10/26/2022 2:06 PM Reason for block: at surgeon's request and post-op pain management Staffing Performed: resident/LAB SCIENTIST/MICHELLE Anesthesiologist: Juan Luis Kaba MD Resident/LAB SCIENTIST: Binu Calles MD Preanesthetic Checklist Completed: patient identified, IV checked, site marked, risks and benefits discussed, surgical consent, monitors and equipment checked, pre-op evaluation and timeout performed Peripheral Block Patient position: supine Prep: ChloraPrep Patient monitoring: environmental engineer scientist and continuous pulse ox Block type: other [...] Heart rate change: no Slow fractionated injection: [facility]12-21-2022 NotePeripheral Block Patient location during procedure: post-op Start time: 10/26/2022 1:52 PM End time: 10/26/2022 2:00 PM Reason for block: at surgeon's request and post-op pain management Staffing Performed: resident/LAB SCIENTIST/MICHELLE Anesthesiologist: Juan Luis Kaba MD Resident/LAB SCIENTIST: Binu Calles MD Preanesthetic Checklist Completed: patient identified, IV checked, site marked, risks and benefits discussed, surgical consent, monitors and equipment checked, pre-op evaluation and timeout performed Peripheral Block Patient position: supine Prep: ChloraPrep Patient monitoring: heart rate, continuous pulse ox and environmental engineer scientist Block type: other (see comment) (TAP) Laterality: [...] Heart rate change: no Slow fractionated injection: [facility]12-21-2022 NoteAirway Date/Time: 10/26/2022 8:48 AM Urgency: elective Airway not difficult General Information and Staff Patient location during procedure: OR Anesthesiologist: Juan Luis Kaba MD Resident/KATIA/MICHELLE: MICHELLE Gomes Performed: other anesthesia staff Learner [...] approach: 1 Number of other approaches attempted: 0UnMount St. Mary Hospital 10-26-2022 NoteArterial Line: Date/Time: 10/26/2022 8:25 [...] Performed: resident/KATIA/MICHELLE Anesthesiologist: Juan Luis Kaba MD Resident/LAB SCIENTIST: Aleah Cantrell MD[facility] 10-13-2022 NoteSubjective: Chief complaint: This patient [...] neurology has not been received, will have client sales and service officer re-request. Patient denies fever, chills, nausea, vomiting, [...] weeks ago Context/Modifying Factors: Was admitted to [facility] with urosepsis Associated signs and symptoms: Currently denies fevers or chills but does have associated left flank pain from the nephroureteral catheter The patient is a 51-year-old female with diabetes who was recently admitted to [facility] with urosepsis. A CT scan and renal ultrasound demonstrated a left staghorn renal calculus. The repo (more content not included)...[facility]11-22-2022 NoteSubjective: Chief complaint: This patient is [...] weeks ago Context/Modifying Factors: Was admitted to [facility] with urosepsis Associated signs and symptoms: Currently denies fevers or chills but does have associated left flank pain from the nephroureteral catheter The patient is a 51-year-old female with diabetes who was recently admitted to [facility] with urosepsis. A CT scan [...] preserve her left renal (more content not included)...[facility]10-13-2022 NoteSubjective Patient ID: Asa Thompson is [...] nursing note reviewed. Exam conducted with a compress trucker present. Constitutional: Appearance: Normal appearance. She is [...] worsen. Plan for left total robotic assisted nephrectomy.[facility]10-12-2022 NoteChief complaint: Left staghorn kidney stone History of Present Illness: Location: Left kidney Duration: Was diagnosed a few weeks ago Context/Modifying Factors: Was admitted to [facility] with urosepsis Associated signs and symptoms: Currently [...] with diabetes who was recently admitted to [facility] with urosepsis. A CT scan [...] for further discussion regarding PCNL versus left nephrectomy.[facility]09-20-2022 NotePROCEDURE: IR CHG NEPHROSTMY CATH PROC [...] detailed explanation of the procedure including risks. [place] protocol was observed. Sterile gowns, masks, hats and gloves utilized for maximal sterile barrier. The patient was placed in the prone position on the fluoroscopy table, and the existing left nephroureteral stent and flank were prepped and draped in sterile manner. The stent tubing was noted to be broken with the lumen exposed near the level of the skin. A metal neutralizer image demonstrated the distal loop approximating the [...] wire. Under fluoroscopic guidance, a new 8 Panamanian x 22 cm nephroureteral stent was advanced over the wire; the distal loop formed in the bladder, but the proximal loop did not form in the renal pelvis. Therefore, this catheter was removed over wire, and a new 8 Panamanian x 24 cm nephroureteral stent was advanced [...] Signed by: Bishnu Alan MD 07/26/22 [facility] NotePROCEDURE: IR CHG NEPHROSTMY CATH PROC 07/26/2022 [...] detailed explanation of the procedure including risks. [place] protocol was observed. Sterile gowns, masks, hats and gloves utilized for maximal sterile barrier. The patient was placed in the prone position on the fluoroscopy table, and the existing left nephroureteral stent and flank were prepped and draped in sterile manner. The stent tubing was noted to be broken with the lumen exposed near the level of the skin. A metal neutralizer image demonstrated the distal loop approximating the [...] wire. Under fluoroscopic guidance, a new 8 Panamanian x 22 cm nephroureteral stent was advanced over the wire; the distal loop formed in the bladder, but the proximal loop did not form in the renal pelvis. Therefore, this catheter was removed over wire, and a new 8 Panamanian x 24 cm nephroureteral stent was advanced over the wire. The distal loop formed in the expected position of the bladder, and the proximal loop partially formed in the renal pelvis. Contrast injection confirmed appropriate positioning. The stent was then attached to the skin with a 2-0 monofilament suture. The patient tolerated the procedure well. COMPLICATIONS: None immediately apparent MHPN RIS [id number] History of Present illness Narrative* Paloma Arceo MD - 07/26/2022 1:42 PM EDT [facility] CDU / OBSERVATION ENCOUNTER ATTENDING [...] going to IR this morning for replacement. [place] observation unit for nephrostomy tube placement. Patient reassessed on arrival to the floor. Paloma Arceo MD Attending Emergency Physician * Song Sharif - 07/26/2022 12:50 AM EDT SPIRITUAL CARE DEPARTMENT - [facility] PROGRESS NOTE Shift date: 07.25.2022 Shift day: Monday Shift # 2 Room # 10/17 Name: Asa Thompson Denominational: unknown Place of moravian: unknown Referral: Routine Visit Admit Date & Time: 07/25/2022 5:43 PM Assessment: Asa Thompson is a 51 y.o. female in the hospital with pain. Upon entering the room designer/writer observes patient in pain and states that she is looking for a nurse to provide pain management. Patient appears to be coping otherwise. Intervention: Registered Radiation Therapist introduced self and title as physician practice manager Registered Radiation Therapist offered space for the patient to express feelings, needs, and concerns and provided a ministry presence. Outcome: Patient requests nursing assistance for pain. Plate Straightener attempted to follow up with nursing staff. Plan: Chaplains will remain available to offer spiritual and emotional support as needed. . Spiritual Care Department [facility] [phone] 07/25/22 2310 Encounter Summary Service Provided For: Patient Referral/Consult From: Rounding Support System Family members Last Encounter 07/25/22 Complexity of Encounter Moderate Begin Time 2310 End Time 2325 Total Time Calculated 15 min Encounter Type Initial Screen/Assessment Assessment/Intervention/Outcome Assessment Compromised coping Intervention Active listening;Discussed illness injury and it s impact;Explored/Affirmed feelings, thoughts, concerns Outcome Expressed feelings, needs, and concerns;Venting emotion documented in this encounterBON CARONDELET ST. [facility]OSPITALAk?[facility] Phone: 1(307) 429-659509-16-2022 History of Present illness Narrative* Christine Campa RN - 07/22/2022 4:32 PM EDT Registered Radiation Therapist went over all discharge paperwork with patient and Shaq ion. Patient denies any further questions or concerns at this time. Patient also has a BMP script to get done within 1 week and have results sent to PCP. Registered Radiation Therapist also called [facility] pharmacy in [place] and verified E-prescriptions were sent. Patient also [...] Campa RN - 07/22/2022 3:47 PM EDT Registered Radiation Therapist was unable to set up follow up appointment for Dr. Chino Dempsey (urologist) on discharge d/tthe office being closed. Registered Radiation Therapist explained to the patient that she will [...] Date/Time NITRU NEGATIVE 07/20/2022 03:05 PM COLORU Troup 07/20/2022 03:05 PM PHUR 5.0 07/20/2022 03:05 [...] as outpatient as well, patient lives near [facility] and will likely ask her PCP to get nephrological referral otherwise if she wants she can follow-up in the clinic with us as well. She should get BMP results done in 1 week and results faxed to PCP. Nutrition Please ensure that patient is on a renal diet/TF. Avoid nephrotoxic drugs/contrast exposure. Shahid Galindo MD [facility] This note is created with the assistance [...] [facility] - Progress Note Today's Date and Time: [...] urine cultures: No growth Urine culture from [facility]: E coli, multi-sensitive Patient will need treatment [...] lithotripsy in the future. Infection Control Recommendations [place] Precautions Antimicrobial Stewardship Recommendations Simplification of therapy [...] is a 51-year-old female who presents to [facility] with a chief complaint of left flank pain that started at 4 AM on 07/18/2022. Patient states that the pain is intense and is radiating towards her left groin. Patient denies any fever, burning urination, urgency frequency, vomiting, loose stool, any shortness of breath or chest discomfort. Patient went to [facility] and had a CT imaging done. 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 Urinalysis positive for leukocytes and nitrates and blood. White blood cell count 13.7 and creatinine of 1.45. Patient needed urology evaluation and nephrostomy tube placement . She was transferred to [facility]. Urology was consulted. Urology plan for IR [...] Blood and urine cultures: No growth at [facility] Urine culture at [facility] with E coli Patient reports tolerating Cipro [...] Cultures: Urine: 07-18-22: E coli- Multi-sensitive at [facility] 07/18/2022: No growth 07/19/2022: Urinalysis: Turbid, glucose [...] stone protocol HISTORY: ORDERING SYSTEM PROVIDED HISTORY: [employer]RA TECHNOLOGIST PROVIDED HISTORY: Bilateral Renal Ultrasound OMAR [...] the procedure including risks, benefits, and alternatives. [place] protocol was followed. The patient's flank was [...] into the urinary bladder using a 4 Panamanian Kumpe the catheter; the Glidewire was exchanged [...] puncture of the lower pole calyx, 4 Panamanian Kumpe the catheter manipulation and glidewire extension into the urinary bladder. Subsequent images show the nephroureteral stent in satisfactory position. Impression Successful percutaneous left nephroureteral stent placement via lower pole, past a large staghorn calculus, with distal pigtail tip position in the urinary bladder, as above. Findings were discussed with KASH CLAY at 4:09 pm on 07/19/2022. Medical Decision [id number]-[id number]: Medical Decision Making-Other: Note: Labs, medications, radiologic studies were reviewed with personal review of films Large amounts of data were reviewed Discussed with nursing Staff, medical planner Infection Control and Prevention measures reviewed All prior entries were reviewed Administer medications as ordered Prognosis: Good Discharge planning reviewed Follow up as outpatient. Thank you for allowing us to participate in the care of this patient. Please call with questions. Urban Noriega MD * Keo Guevara MD - 07/22/2022 7:45 AM EDT Physician Progress Note PATIENT: ASA THOMPSON CSN #: [id number] : 1970 ADMIT DATE: 07/18/2022 3:19 PM [...] Thank you, Judith LUNA,RN, CDI email - [email or web address] [phone] office hours [id number] Options provided: -- Sepsis, [...] from the original note were not included. [facility] Internal Medicine Teaching Residency Program Inpatient Daily Progress Note Patient: Asa Thompson Date of : 1970 Acct: [id number] Room: [address] [place] [address] Admit date: 07/18/2022 Today's date: 07/22/22 Number [...] positive for E. Coli- multi sensitive at [facility] Lactic acid-1.5-2.3 Urology on board-okay to be [...] breath or chest discomfort. Patient went to [facility] and CT imaging showed partially obstructing large staghorn calcification in left renal pelvis and perinephric edema-small amount of air and gas concerning for pyelonephritis.UA positive for leukocytes and nitrites with blood.WBC count 13.7 and creatinine of 1.45. Patient needed urology evaluation and nephrostomy tube placement so transferred to the [facility]. Urology consulted plan for IR tomorrow. patient [...] Keo Guevara MD Internal Medicine Resident, PGY-[address] [facility]; [place], [place] 07/22/2022, 7:44 AM Associated attestation - Livia Cantrell MD - 07/22/2022 2:02 PM EDT Attending Physician Statement I have discussed the case of Asa Thompson, including pertinent history and exam findings with the resident/fellow/medical student/PRINCIPAL SCIENTIST/PA. I have seen and examined the patient and the trevizo elementsof the encounter have been performed by me. I agree with the assessment, plan and orders as documented by the resident/fellow/medical student/PRINCIPAL SCIENTIST/PA With changes made to the note as [...] been improving Microbiologic data remains negative at [facility] Increase activity Percutaneous nephrostomy tube is draining Discharge planning in progress Livia Cantrell MD 07/22/2022 2:01 PM * TERRY BERGMAN - 07/21/2022 11:50 PM EDT Notified resident at 2345 of patient having increased stools. Requested probiotic to prevent cdiff and also to adjust amount of labs being drawn, awaiting response. * Latoya Chatterjee RN - 07/21/2022 3:44 PM EDT Fax received from [facility], patient's urine culture is positive for e-coli. [...] Date/Time NITRU NEGATIVE 07/20/2022 03:05 PM COLORU Troup 07/20/2022 03:05 PM PHUR 5.0 07/20/2022 03:05 [...] 07/21/2022 1:36 PM EDT Physical Therapy Facility/Department: [address] [facility] Physical Therapy Initial Assessment Name: Asa Thompson [...] Ambulation Assistance: Independent Transfer Assistance: Independent Active Speeder Tender: Yes Mode of Transportation: SUV Occupation: Unemployed [...] talk with patient and family. * Luisa Jere, OT - 07/21/2022 12:07 PM EDT Occupational Therapy Facility/Department: [address] [facility] Occupational Therapy Initial Assessment Name: [...] Ambulation Assistance: Independent Transfer Assistance: Independent Active Speeder Tender: Yes Mode of Transportation: SUV Occupation: Unemployed [...] 0-100% Score: 0 (07/21/22 1208) ADL Inpatient [facility] G-Code Modifier : CH (07/21/22 120) Therapy Time Individual Concurrent Group Co-treatment Time In 928 Time Out 957 Minutes 29 Timed Code Treatment Minutes: 9 Minutes Luisa Oquendo OTR/L * Urban Noriega MD - 07/21/2022 11:44 AM EDT Images from the original note were not included. [facility] - Progress Note Today's Date and Time: [...] up to a week. Infection Control Recommendations [place] Precautions Antimicrobial Stewardship Recommendations Simplification of therapy [...] is a 51-year-old female who presents to [facility] with a chief complaint of left flank pain that started at 4 AM on 07/18/2022. Patient states that the pain is intense and is radiating towards her left groin. Patient denies any fever, burning urination, urgency frequency, vomiting, loose stool, any shortness of breath or chest discomfort. Patient went to [facility] and had a CT imaging done. 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 Urinalysis positive for leukocytes and nitrates and blood. White blood cell count 13.7 and creatinine of 1.45. Patient needed urology evaluation and nephrostomy tube placement . She was transferred to [facility]. Urology was consulted. Urology plan for IR [...] hyperglycemia, without long-term current use of insulin ([facility]) Past Surgical History: Past Surgical History: Procedure Laterality Date IR NEPHROSTOMY PERCUTANEOUS LEFT 07/19/2022 IR NEPHROSTOMY PERCUTANEOUS LEFT 07/19/2022 Noman Mullen MD [facility] SPECIAL PROCEDURES Medications: insulin lispro 0-16 [...] the procedure including risks, benefits, and alternatives. [place] protocol was followed. The patient's flank was [...] into the urinary bladder using a 4 Panamanian Kumpe the catheter; the Glidewire was exchanged [...] puncture of the lower pole calyx, 4 Panamanian Kumpe the catheter manipulation and glidewire extension into the urinary bladder. Subsequent images show the nephroureteral stent in satisfactory position. Impression Successful percutaneous left nephroureteral stent placement via lower pole, past a large staghorn calculus, with distal pigtail tip position in the urinary bladder, as above. Findings were discussed with KASH CLAY at 4:09 pm on 07/19/2022. Medical Decision Jwaodj-Ycurgvri-Pulfe: Medical Decision Making-Other: Note: Labs, medications, radiologic studies were reviewed with personal review of films Large amounts of data were reviewed Discussed with nursing Staff, medical planner Infection Control and Prevention measures reviewed All prior entries were reviewed Administer medications as ordered Prognosis: Good Discharge planning reviewed Follow up as outpatient. Thank you for allowing us to participate in the care of this patient. Please call with questions. Urban Noriega MD * Phillip Garrett MD - 07/21/2022 8:22 AM EDT Images from the original note were not included. [facility] Internal Medicine Teaching Residency Program Inpatient Daily Progress Note Patient: Asa Thompson Date of : 1970 Acct: [id number] Room: [address] [place] [address] Admit date: 07/18/2022 Today's date: 07/21/22 Number [...] breath or chest discomfort. Patient went to [facility] and CT imaging showed partially obstructing large staghorn calcification in left renal pelvis and perinephric edema-small amount of air and gas concerning for pyelonephritis.UA positive for leukocytes and nitrites with blood.WBC count 13.7 and creatinine of 1.45. Patient needed urology evaluation and nephrostomy tube placement so transferred to the [facility]. Urology consulted plan for IR tomorrow. patient [...] time PT/OT/SW-consulted we will follow-up Discharge Planning: design project manager consulted Phillip Garrett MD Internal Medicine Resident, PGY-[address] [facility]; [place], [place] 07/21/2022, 8:22 AM Associated attestation - Livia Cantrell MD - 07/21/2022 8:43 PM EDT Attending Physician Statement I have discussed the case of Asa Thompson, including pertinent history and exam findings with the resident/fellow/medical student/PRINCIPAL SCIENTIST/PA. I have seen and examined the patient and the trevizo elementsof the encounter have been performed by me. I agree with the assessment, plan and orders as documented by the resident/fellow/medical student/PRINCIPAL SCIENTIST/PA With changes made to the note as [...] 11:26 PM EDT SPIRITUAL CARE DEPARTMENT - [facility] PROGRESS NOTE Shift date: 07/20/22 Shift day: Monday Shift # 2 Room # 0541/0541-01 Name: Asa Thompson Denominational: Place of moravian: Referral: Routine Visit Admit Date & Time: 07/18/2022 3:19 PM Assessment: Asa Thompson is a 51 y.o. female Intervention: Registered Radiation Therapist introduced self and title as physician practice manager. Patient did not appear to mind physician practice manager presence. Registered Radiation Therapist offered space for patient to express feelings, needs, and concerns and provided a ministry presence. Patient appeared to be resting and coping. Outcome: While gonzález/spirituality were not discussed, patient appeared receptive to physician practice manager presence.3 Plan: Chaplains will remain available to offer spiritual and emotional support as needed. . Spiritual Care Department [facility] [phone] * TERRY BERGMAN - 07/20/2022 9:30 PM EDT Orders received for patients high BP * TERRY BERGMAN - 07/20/2022 9:08 PM EDT Notified vacation sales advisor resident for internal medicine of patients current [...] from the original note were not included. [facility] Internal Medicine Teaching Residency Program Inpatient Daily Progress Note Patient: Asa Thompson Date of : 1970 Acct: [id number] Room: [address] [place] [address] Admit date: 07/18/2022 Today's date: 07/20/22 Number of days in the hospital: 2 SUBJECTIVE Admitting Diagnosis: Calculous pyelonephritis CC: Left flank pain Pt examined at bedside. Chart & results reviewed. No acute event overnight Patient remained afebrile hemodynamically stable Pain better controlled with pain meds IR guided left percutaneous nephrostomy tube placement yesterday evening-output 500 so far WBC-12.3-7.1-10.2 Creatinine 1.65-1.71-2.11 [id number]-corrected sodium 133 Lactic acid-3.8 Glucose-416 ROS: Constitutional: [...] breath or chest discomfort. Patient went to [facility] and CT imaging showed partially obstructing large staghorn calcification in left renal pelvis and perinephric edema-small amount of air and gas concerning for pyelonephritis.UA positive for leukocytes and nitrites with blood.WBC count 13.7 and creatinine of 1.45. Patient needed urology evaluation and nephrostomy tube placement so transferred to the [facility]. Urology consulted plan for IR tomorrow. patient [...] BID Continuous Infusions: sodium chloride Stopped (07/19/22 1892) dextrose sodium chloride 100 mL/hr at 07/20/22 [...] 410 280 252 BMP: Recent Labs 07/19/22 0607/20/2214707/20/22425 NA 131* 128* 128* K 4.0 5.2 [...] time PT/OT/SW-consulted we will follow-up Discharge Planning: design project manager consulted Keo Guevara MD Internal Medicine Resident, PGY-[address] [facility]; [place], [place] 07/20/2022, 8:06 AM Associated attestation - Livia Cantrell MD - 07/20/2022 7:52 PM EDT Attending Physician Statement I have discussed the case of Asa Thompson, including pertinent history and exam findings with the resident/fellow/medical student/PRINCIPAL SCIENTIST/PA. I have seen and examined the patient and the trevizo elementsof the encounter have been performed by me. I agree with the assessment, plan and orders as documented by the resident/fellow/medical student/PRINCIPAL SCIENTIST/PA With changes made to the note as [...] note were not included. Ke Bonilla, Jt, Orlin Guerra, Priya Brambila Jr Urology Progress Note Subjective: [...] C) Oral (!) 110 14 97 % 07/19/222325 117/66 98.2 F (36.8 C) Oral (!) 112 14 95 % 07/19/222144 115/76 98.1 F (36.7 C) Oral (!) 122 12 93 % 07/19/222136 -- -- -- -- 16 -- 07/19/222106 -- -- -- -- 12 -- 07/19/221934 117/72 98.6 F (37 C) Oral (!) 122 14 92 % 07/19/221921 -- -- -- -- 14 -- 07/19/22 [...] cysto, URS, HLL 7 years prior in [place], [place] with Dr. Harrison Recurrent UTIs, 4 [...] score is now 5.12. Per sepsis protocol, designer/writer ordered lactic and blood cultures. Provider notified. * Alexsandra Mckinley RN - 07/20/2022 3:13 AM EDT Registered Radiation Therapist notified provider of infection concerns. Patient's WBC [...] original note were not included. Occupational Therapy [facility] Occupational Therapy Not Seen Note DATE: 07/19/2022 [...] cysto, URS, HLL 7 years prior in [place], [place] with Dr. Harrison Recurrent UTIs, 4 [...] from the original note were not included. [facility] Internal Medicine Teaching Residency Program Inpatient Daily Progress Note Patient: Asa Thompson Date of : 1970 Acct: [id number] Room: Admit date: 07/18/2022 Today's date: 07/19/22 [...] breath or chest discomfort. Patient went to [facility] and CT imaging showed partially obstructing large staghorn calcification in left renal pelvis and perinephric edema-small amount of air and gas concerning for pyelonephritis.UA positive for leukocytes and nitrites with blood.WBC count 13.7 and creatinine of 1.45. Patient needed urology evaluation and nephrostomy tube placement so transferred to the [facility]. Urology consulted plan for IR tomorrow. patient [...] time PT/OT/SW-consulted we will follow-up Discharge Planning: design project manager consulted Keo Guevara MD Internal Medicine Resident, PGY-[address] [facility]; [place], [place] 07/19/2022, 6:40 AM Associated attestation - Livia Cantrell MD - 07/19/2022 7:45 PM EDT Attending Physician Statement I have discussed the case of Asa Thompson, including pertinent history and exam findings with the resident/fellow/medical student/PRINCIPAL SCIENTIST/PA. I have seen and examined the patient and the trevizo elementsof the encounter have been performed by me. I agree with the assessment, plan and orders as documented by the resident/fellow/medical student/PRINCIPAL SCIENTIST/PA With changes made to the note as [...] [N10] Calculous pyelonephritis [N20.0]. See H&P of admitting/information technology internship resident for more details. Transferred [facility] Patient came in due to left flank pain which started last night, has history of kidney stones in the past. Although denies similar pain from before. Denies n, vomiting, fever, chills. Patient recently had UTI as well which was treated with keflex possibly. [facility]horn calculi with left [...] Brooklynn Ferrari MD Department of Internal Medicine [facility], [place] 07/19/2022, 12:39 AM documented in this encounterBON CARONDELET ST. [facility]PH'S HOSPITALVivione Biosciences [facility]Num[facility]x Phone: 1(366) 234-373509-16-2022 Hospital Discharge instructions* Discharge Instructions* Keo Guevara MD - 07/22/2022 12:18 PM EDT You were admitted for staghorn renal calculi and your urine culture from [facility] was positive for Ecoli. Please take ciprofloxacin [...] Primary Emergency Contact: arian thompson Relation: Child Window Shade Cutter needed? No Past Surgical History: Past Surgical History: Procedure Laterality Date IR NEPHROSTOMY PERCUTANEOUS LEFT 07/19/2022 IR NEPHROSTOMY PERCUTANEOUS LEFT 07/19/2022 Noman Mullen MD [facility] SPECIAL PROCEDURES Immunization History: There is no immunization history on file for this patient. Active Problems: Patient Active Problem List Diagnosis Code Calculous pyelonephritis N20.0 OMAR (acute kidney injury) ([facility]) N17.9 Type 2 diabetes mellitus, with long-term current use of insulin ([facility]) E11.9, Z79.4 Leukocytosis D72.829 Hypothyroidism E03.9 Depression F32.A Hypertension I10 History of coronary artery disease Z86.79 Acute pyelonephritis N10 Left renal atrophy N26.1 Kidney stone N20.0 Sepsis with acute renal failure without septic shock ([facility]) A41.9, R65.20, N17.9 History of [...] MENTAL STATUS:} IV Access: { TIMO IV ACCESS:789075650} Nursing Mobility/ADLs: Walking {CHP DME ADLs:684194669} Transfer {CHP DME ADLs:301602383} Bathing {CHP DME ADLs:390621054} Dressing {CHP DME ADLs:816786384} Toileting {CHP DME ADLs:069186879} Feeding {CHP DME ADLs:620921209} Airport Guide {CHP DME ADLs:905161739} Med Delivery { TIMO MED Delivery:196945238} Wound Care Documentation and Therapy: Elimination: Continence: Bowel: {YES / NO:} Bladder: {YES / NO:} Urinary Catheter: {Urinary Catheter:511503464} Colostomy/Ileostomy/Ileal Conduit: {YES / NO:} Date of Last BM: Intake/Output Summary (Last 24 hours) at 07/22/2022 1349 Last data filed at 07/22/2022 0813 Gross per 24 hour Intake 1594.2 ml Output 3875 ml Net -2280.8 ml I/O last 3 completed shifts: In: 4236.1 [P.O.:580; I.V.:3350.1; IV Piggyback:306] Out: 6520 [Urine:6520] Safety Concerns: { TIMO Safety Concerns:257307081} Impairments/Disabilities: { TIMO Impairments/Disabilities:279460108} Nutrition Therapy: Current Nutrition Therapy: { TIMO Diet List:101587980} Routes of Feeding: {[facility] Other Feedings:357346729} Liquids: {[facility] liquid thickness:97501} Daily Fluid Restriction: {[facility] DME Yes amt example:076930107} Last Modified Barium Swallow with Video (Video Swallowing Test): {Done Not Done Date:} Treatments at the Time of Hospital Discharge: Respiratory Treatments: Oxygen Therapy: {Therapy; copd oxygen:31808} Ventilator: { CC Vent List:444687744} Rehab Therapies: {THERAPEUTIC INTERVENTION:8681890051} Weight Bearing Status/Restrictions: {[facility] Weight Bearin} Other Medical Equipment (for information only, NOT a DME order): {EQUIPMENT:624162479} Other Treatments: Patient's personal belongings (please select all that are sent with patient): {[facility] DME Belongings:330922174} RN SIGNATURE: {Esignature:853608408} CASE MANAGEMENT/SOCIAL WORK SECTION Inpatient Status Date: Readmission Risk Assessment Score: Readmission Risk Risk of Unplanned Readmission: 19 Discharging to Facility/ Agency Name: Address: Phone: Fax: Dialysis Facility (if applicable) Name: Address: Dialysis Schedule: Phone: Fax: Consolidator/User Acceptance Tester signature: {Esignature:860615215} PHYSICIAN SECTION Prognosis: {Prognosis:7665721730} Condition at Discharge: { Patient Condition:680026010} Rehab Potential (if transferring to Rehab): {Prognosis:4024836861} Recommended Labs or Other Treatments After Discharge: Physician Certification: I certify the above information and transfer of Asa Thompson is necessary for the continuing treatment of the diagnosis listed and that she requires {Admit to Appropriate Level of Care:48278} for {GREATER/LESS:744520570} 30 days. Update Admission H&P: {CHP DME Changes in HandP:110544928} PHYSICIAN SIGNATURE: {Esignature:913803591} documented in this encounterBON CARONDELET ST. JOSEPH'S HOSPITALdotHIV Work Phone: [phone]) 941-415709-13-2022 NotePROCEDURE: PERCUTANEOUS ANTEGRADE PYELOGRAM LEFT PERCUTANEOUS NEPHROURETERAL [...] the procedure including risks, benefits, and alternatives. [place] protocol was followed. The patient's flank was [...] into the urinary bladder using a 4 Panamanian Kumpe the catheter; the Glidewire was exchanged [...] puncture of the lower pole calyx, 4 Panamanian Kumpe the catheter manipulation and glidewire extension [...] by: Noman Mullen MD 07/19/22 [facility]09-13-2022 NotePROCEDURE: PERCUTANEOUS ANTEGRADE PYELOGRAM LEFT PERCUTANEOUS NEPHROURETERAL [...] the procedure including risks, benefits, and alternatives. [place] protocol was followed. The patient's flank was [...] into the urinary bladder using a 4 Panamanian Kumpe the catheter; the Glidewire was exchanged [...] puncture of the lower pole calyx, 4 Panamanian Kumpe the catheter manipulation and glidewire extension into the urinary bladder. Subsequent images show the nephroureteral stent in satisfactory position. [facility] [id number] NoteHNO ID: [id number] Author: Liliana Avila, PhD Service: ? Author Type: Physician Type: Progress Notes Filed: 03/11/2022 3:32 PM Note Text: [facility] Progress Note 03/11/2022 Billing code: 85770/[place] 3:10PM - I called the patient to [...] her evaluation/medical records. Will send her a [employer] message with instructions. Liliana Avila, PhD Clinical Health PsychologistUniversity Hospitals Health System01-20-2022 NoteHNO ID: [id number] Author: Jeannine Tamez, PhD Service: ? Author Type: Psychologist Type: Progress Notes Filed: 11/25/2021 8:38 AM Note Text: [facility] Patient no-showed appointment despite phone call and HIPAA compliant VM. Patient given instructions on rescheduling. Jeannine Tamez, PhD PsychologistUniversity Hospitals Health System09-03-2021 NoteHNO ID: [id number] Author: Ghazal Doyle RD Service: ? Author [...] meal plan and stated understanding. Ghazal Doyle RDUniversity Hospitals Health System08-31-2021 NoteHNO ID: [id number] Author: Ghazal Doyle RD Service: ? Author Type: Registered Dietitian Type: Progress Notes Filed: 07/06/2021 11:52 AM Note Text: Telephone call placed to patient at 11:49 AM at [phone]. Received forwarded My Chart message from Abraham Pacheco RN regarding hypoglycemia on liquid diet phase. No answer . Left message with contact telephone number [phone] and instructions to communicate with this provider via [employer] when able. Ghazal Doyle RDUniversity Hospitals Health System08-16-2021 NoteHNO ID: [id number] Author: Quincy Rodriguez MD Service: ? Author Type: Physician Type: Progress Notes Filed: 06/21/2021 12:56 PM Note Text: Metabolic Surgery Postoperative Virtual Clinic Visit Name: Asa Thopmson This visit was performed virtually via Zoom [...] complication, with long-term current use of insulin ([facility]) Preoperative cardiovascular examination [facility] [...] AND Bariatric Surgery Fellow Bariatric AND Metabolic [facility] STAFF NOTE I have seen and evaluated [...] counseling and educating the patient/family/caregiver. Quincy Rodriguez, [facility]06-04-2021 NoteHNO ID: [id number] Author: Jeannine Tamez, PhD Service: ? Author Type: Psychologist Type: Progress Notes Filed: 04/09/2021 2:44 PM Note Text: [facility] Receipt of Outside Records Patient: Asa Thompson Date: 04/09/2021 Received records from patient's physician, Garry Ramos MD of [employer] (Address: [address] [place] [address]; ; ). Asa is off of all psychiatric meds and is stable for gastric bypass surgery. These records have been sent to scanning. Plan: *All requirements have been met Jeannine Tamez, PhD PsychologistUniversity Hospitals Health System05-26-2021 NoteHNO ID: [id number] Author: Ghazal Doyle RD Service: ? Author Type: Registered Dietitian Type: Progress Notes Filed: 03/31/2021 9:29 AM Note Text: [facility] Nutrition Therapy: Virtual Consult ? Re-assessment This visit was performed virtually due to the COVID-19 epidemic as an effort to protect patients and minimize exposure. Consent from patient received to conduct visit virtually. This Team Access Model visit is a virtual encounter. It required patient-provider interaction for the medical decision making as documented below. This visit completed via [employer] as Zoom did not connect PROGRESS: [...] - met 6. Start researching post-op vitamins: [employer], [employer], or [employer]-specific websites- - met Pre-op goal weight:?238 lbs [...] artery disease) 10/06/2010 - DM (diabetes mellitus) ([facility]) - Hyperlipidemia - Hypothyroidism - Nephrolithiasis - Schizophrenia ([facility]) - UTI (urinary tract infection) PAST SURGICAL HISTORY Procedure Laterality Date - CARDIAC CATH 10/06/2010 Moderate, nonhemodynamically significant stenosis of RCA (by [facility]) - HYSTERECTOMY HX - PAST SURGICAL HISTORY OF 03/2016 urinary stent - TONSILLECTOMY HX ANTHROPOMETRICS Height per patient: 63? Weight per patient: 236 lbs# Most recent height and weight [facility] Height: Last 1 Encounter Ht Readings: [...] [facility] (more content not included)... [facility] SystemEvaluation note* Diagnosis Calculous pyelonephritis- Primary Kidney stone [...] of non-steroidal anti-inflammatories documented in this encounter [employer] Phone: evaluation note* Diagnosis Nephrostomy tube displaced (HCC)- Primary Urinary complications Nephrostomy complication (HCC) documented in this encounter [employer] Phone: History general Narrative - Reported* Type Description Date Medical History Hypercholesterolemia Medical History DM Medical History Hypothyroid Medical History diabetic neuropathy Surgical History [facility] BSO 2000 Surgical History Heart catherization 2009 Surgical History kidney stone Surgical History left kidney removed 10/26/2022 Hospitalization History See past surgical histor y Hospitalization History Heart Event 2009 [employer] Other Hospital Discharge instructions* Attachments The following attachments cannot be sent through Care Everywhere. * Nephrostomy Tube Care (Irish) documented in this encounterBON [employer] Work Phone: Assessments No Assessments Information Available [...] W PHARMACOLOGICAL INTERVENTION Robson, Christi, DO [address] [address] Referral ID Status Reason Start Date Expiration Date Visits Re quested Visits Authorized [id number] Open 08/03/2022 08/03/2023 1 1 Additional Source Comments INFORMATION SOURCE (unrecogn ized section and content) DATE CREATED AUTHOR 04/03/2021 [facility] [place] DATE CREATED AUTHOR AUTHOR'S ORGANIZ ATION 03/15/2022 [facility] DATE CREATED AUTHOR AUTHOR'S ORGANIZ ATION 08/09/2022 [facility] DATE CREATED AUTHOR AUTHOR'S ORGANIZ ATION 08/11/2022 [facility] DATE CREATED AUTHOR AUTHOR'S ORGANIZ ATION 02/07/2023 [facility] DATE CREATED AUTHOR AUTHOR'S ORGANIZ ATION 03/17/2023 [facility] Reason for Visit (unrecogniz ed section and content) Reason Comments Flank Pain Specialty Diagnoses / Procedures Referred By Contac t Referred To Contact Diagnoses Kidney stone Acute pyelonephritis Calculous pyelonephritis Livia Cantrell MD [address] [facility] [address] [place] [address] [facility] [address] [place] [address] Referral ID Status Reason Start Date Expiration Date Visits Re quested Visits Authorized [id number] 1 1 Reason Comments Other nephrostamy tube got pulled. tub is broken and leaking urine. not able to gett it to stop leaking Specialty Diagnoses / Procedures Referred By Serina bonilla Referred To Contact Diagnoses Nephrostomy tube displaced (HCC) Nephrostomy complication (HCC) Paloma Arceo MD [address] [place] [address] [facility] [address] [place] [address] Referral ID Status Reason Start Date Expiration Date Visits Re quested Visits Authorized [id number] 1 1 Ordered Prescriptions (unrec ognized section [...] Discontinued 2158 (Given - Provider: TERRY BERGMAN) 2140 (Given - Provider: TERRY BERGMAN) 2100 (Due) ciprofloxacin (CIPRO) IVPB 400 mg (CANCELED) 400 mg, IntraVENous, EVERY 12 HOURS, 14 doses, First dose on Mon07/18/22 at 2145, Last dose on Mon07/25/22 at 0945, Antimicrobial Indications: Urinary Tract Infection, UTI duration of therapy: 7 days 0856 (New Bag - Provider: Ligia Mattson, RN)1029 (Stopped - Provider: Ligia Mattson, RN) DULoxetine (CYMBALTA) extended release capsule 60 [...] - Provider: Ligia Mattson RN - Comment: md approved) 0100 (Held - Provider: TERRY BERGMAN [...] Christine Campa RN)1355 (Given - Provider: Christine Polan, RN)2200 (Due) insulin glargine (LANTUS) injection vial [...] physician 1126 (Not Given - Provider: Ligia Mattson, BRANDON - Reason: Other - Comment: wrong start [...] at 1615 1134 (Not Given - Provider: Chritsine Campa RN - Reason: Other) sodium chloride [...] Provider: TERRY BERGMAN)0701 (Stopped - Provider: Christine Campa RN)1614 (Not Given - Provider: Christine Campa RN [...] Mattson, BRANDON)0900 (Rate/Dose Verify - Provider: TERRY BERGMNA)1621 (Rate/Dose Verify - Provider: TERRY BERGMAN)2028 (Stopped [...] 24 hours. 0513 (Given - Provider: Alexsandra Mckinley, BRANDON)1235 (Given - Provider: Ligia Mattson RN)2355 (Given [...] specifically ordered. 1050 (Given - Provider: Ligia Mattson RN)1250 (Given - Provider: Ligia Mattson RN) fentaNYL (SUBLIMAZE) injection 50 mcg 50 [...] dose on Mon07/26/22 at 0900, Until Discontinued 121 (Given - Provid er: Tesha Boggs RN) [...]
Care Teams (unrecognized sec tion and content) Lock Stitch Channeler Relationship Specialty Start Date End Date Garry Ramos MD [address] [place] [id number] PCP - General Family Medicine 07/22/22 Lock Stitch Channeler Relationship Specialty Start Date End Date Garry Ramos MD [address] [place] [id number] PCP - General Family Medicine 07/22/22 FOR [...] BE BASED ON THE PRIMARY CLINICAL RECORDS. [facility] [employer] provides no warranty or guarantee of the accuracy or completeness of information in this document.
[2024-05-02 23:25] VITALS: BP 128/81; PULSE 86; TEMP 36.5; O2SAT 96; BMI 46.1
[2024-05-02 23:55] VITALS: BP 128/81
[2024-05-02] MEDS: 0.9 % SODIUM CHLORIDE 1,000 ML 125 ML IV (23:56)
[2024-05-03] VITALS (10 sets, daily range): BP systolic 126–167; BP diastolic 74–99; PULSE 84–94; TEMP 36.5–36.9; O2SAT 92–97
[2024-05-03 04:33] LABS: Basophils Percent Auto 0.3 % (0.2-2.0); Eosinophils Absolute Auto 0.1 10^3/uL (0.0-0.7); Eosinophils Percent Auto 1.6 % (0.9-7.0); Hematocrit 36.3 % (36.0-48.0); Hemoglobin 11.4 g/dL (12.0-16.0); Immature Granulocytes Abs Auto 0.09 10^3/uL (0.00-0.03); Immature Granulocytes Pct Auto 1.1 % (0.0-0.5); Lymphocytes Absolute Auto 2.7 10^3/uL (1.2-3.8); Lymphocytes Percent Auto 34.1 % (20.5-60.0); Mean Corpuscular HGB Conc 31.4 g/dL (29.9-35.2); Mean Corpuscular Hemoglobin 27.7 pg (26.7-34.0); Mean Corpuscular Volume 88.3 fL (81.0-99.0); Monocytes Percent Auto 12.5 % (1.7-12.0); Neutrophils Percent Auto 50.4 % (43.0-75.0); Platelet Count 328 10^3/uL (150-450); Red Blood Count 4.11 10^6/uL (4.20-5.40); Red Cell Distribution Width 13.7 % (11.0-15.0); White Blood Count 7.9 10^3/uL (4.0-11.0)
[2024-05-03 04:39] LABS: Anion Gap 15.4; Calcium 8.3 mg/dL (8.5-10.1); Carbon Dioxide 22.9 mmol/L (21.0-32.0); Chloride 104 mmol/L (98-107); Estimated GFR (African America 19 (>=60); Estimated GFR (Non-African Ame 16 (>=60); Glucose 143 mg/dL (74-106); Potassium 3.3 mmol/L (3.5-5.1); Sodium 139 mmol/L (136-145)
[2024-05-03] MEDS: 0.9 % SODIUM CHLORIDE 1,000 ML 125 ML IV ×2 (06:12→19:09)
[2024-05-03 07:17] LABS: Alanine Aminotransferase 15 U/L (14-59); Albumin Globulin Ratio 0.8; Albumin Level 2.9 g/dL (3.4-5.0); Alkaline Phosphatase 94 U/L (46-116); Aspartate Amino Transferase 15 U/L (15-37); Bilirubin Direct 0.1 mg/dL (0.0-0.2); Bilirubin Total 0.4 mg/dL (0.2-1.0); Globulin 3.5 g/dL; Magnesium 1.6 mg/dL (1.8-2.4); Total Protein 6.4 g/dL (6.4-8.2)
[2024-05-03] MEDS: 0.9 % SODIUM CHLORIDE 1,000 ML 1000 ML IV (07:29)
[2024-05-03] MEDS: POTASSIUM CHLORIDE 10 MEQ ER TABLET 20 MEQ PO ×2 (08:43→21:02)
[2024-05-03] MEDS: GABAPENTIN 400 MG CAPSULE 1200 MG PO ×2 (08:43→21:02)
[2024-05-03] MEDS: LIOTHYRONINE SODIUM 5 MCG TABLET 10 MCG PO (08:43)
[2024-05-03] MEDS: INSULIN NPH 70-30 100UNIT/ML VIAL (10ML) 80 UNIT SUBQ (08:44)
[2024-05-03] MEDS: CHOLECALCIFEROL (VITAMIN D3) 25 MCG/1,000 UNITS TABLET PO (08:44)
[2024-05-03] MEDS: LEVOTHYROXINE SODIUM 125 MCG TABLET PO (08:44)
[2024-05-03] MEDS: OMEPRAZOLE 40 MG CAPSULE.DR PO (08:44)
[2024-05-03] MEDS: INSULIN ASPART 300 UNIT/3 ML PEN SUBQ ×2 (08:49→12:10)
--- NOTE | 2024-05-03 09:35 | P.DS_ITS ---
DS: Providers Provider Date of admission: 05/02/24 22:46 Primary care physician: Ricardo Vallejo MD Consults: 05/02/24 Consult to Rn Orthopaedic Routine Reason for consult:: Advanced Directives 05/03/24 06:43 Consult to Pharmacy Routine Consulting Provider: Reason for consultation: Please [place] me when Med Rec is Updated Has provider been notified: No DS: Summary Time Spent with Patient Time attestation: Total time spent providing and/or coordinating discharge services: Exam Constitutional Vital Signs, click to edit/add: Last Vital Signs Temp 97.8 F 05/03/24 08:58 Pulse 92 H 05/03/24 08:58 Resp 18 05/03/24 08:58 BP 160/92 H 05/03/24 08:58 Pulse Ox 95 05/03/24 08:58 O2 Del Method Room Air 05/03/24 08:58 DS: Data Data Completed and Pending Labs on day of discharge: Labs from last 24 hours 05/03/24 05/02/24 03:47 21:00 WBC 7.9 8.1 RBC 4.11 L 4.93 Hgb 11.4 L 13.7 Hct 36.3 42.2 MCV 88.3 85.6 MCH 27.7 27.8 MCHC 31.4 32.5 RDW 13.7 13.8 Plt Count 328 413 MPV 10.0 9.8 Neut % (Auto) 50.4 53.4 Lymph % (Auto) 34.1 33.0 [place] % (Auto) 12.5 H 10.2 Eos % (Auto) 1.6 1.8 Baso % (Auto) 0.3 0.5 Neut # (Auto) 4.0 4.3 Lymph # (Auto) 2.7 2.7 [place] # (Auto) 1.0 H 0.8 Eos # (Auto) 0.1 0.2 Baso # (Auto) 0.0 0.0 Abs Immat Gran (auto) 0.09 H 0.09 H Imm/Tot Granulo (auto) 1.1 H 1.1 H Sodium 139 138 Potassium 3.3 L 3.4 L Chloride 104 99 Carbon Dioxide 22.9 25.6 Anion Gap 15.4 16.8 BUN 28.0 H 31.0 H Creatinine 3.12 H 3.47 H Est GFR ( Amer) 19 L 17 L Est GFR (Non-Af Amer) 16 L 14 L BUN/Creatinine Ratio 9.0 8.9 Glucose 143 H 135 H Calcium 8.3 L 9.2 Magnesium 1.6 L 1.5 L Total Bilirubin 0.4 Direct Bilirubin 0.1 AST 15 ALT 15 Alkaline Phosphatase 94 Total Protein 6.4 Albumin 2.9 L Globulin 3.5 Albumin/Globulin Ratio 0.8 Discharge Plan Discharge Condition: Fair Discharge Medications: No Action atorvastatin 80 mg tablet 80 mg PO QPM cholecalciferol (vitamin D3) 25 mcg (1,000 unit) capsule 1,000 unit PO DAILY gabapentin 600 mg tablet 1,200 mg PO BID hydralazine 25 mg tablet 25 mg PO TID hydrochlorothiazide 25 mg tablet 25 mg PO DAILY hyoscyamine sulfate 0.125 mg tablet, sublingual 0.125 mg PO Q6H PRN (Reason: dyspepsia) Humulin 70/30 U-100 Insulin 100 unit/mL (70-30) suspension 80 unit SUBCUT QAM Rx Instructions: 80 AM AND 50 PM levothyroxine 125 mcg tablet 125 mcg PO DAILY liothyronine 5 mcg tablet 10 mcg PO DAILY losartan 100 mg tablet 100 mg PO DAILY metformin 500 mg tablet 500 mg PO DAILY ondansetron 4 mg tablet,disintegrating 4 mg PO Q6H PRN (Reason: nausea and vomiting) pantoprazole 40 mg tablet,delayed release (DR/EC) 40 mg PO DAILY phentermine 37.5 mg tablet 37.5 mg PO DAILY Print Language: [place] Follow Up Appointments: May 08 @ 11:15am with Dr. Vallejo [phone]
--- NOTE | 2024-05-03 09:35 | P.HP_ITS ---
HPI H&P: HPI History of Present Illness Chief complaint: VOMITING, DIARRHEA OMAR Narrative: Patient with a history of chronic kidney disease, presented to emergency room with nausea, vomiting, diarrhea for over a week. Has significant elevation in her creatinine. Her baseline creatinine is 1.84, admission was 3.47, though would be 188.6% above baseline. When I saw patient up on the medical surgical floor, she was resting comfortably in bed, some nausea but no abdominal pain no diarrhea so far this morning. No unusual foods recently. No other sick contacts. Opioid HPI Opioid Management Most Recent Pain and Opioid Data: Last Pain Assessment 05/03/24 07:00 Last ORT Total Score 2 05/02/24 23:25 Last ORT Risk Category Low Risk 05/02/24 23:25 Review of Systems ROS Status of ROS 10 or more systems reviewed and unremark able except as noted in history and below [facility] Medical History (Updated 05/03/24 @ 11:05 by Ricardo Vallejo MD) Neuropathy ?G62.9 - Polyneuropathy, unspecified (ICD-10) Diabetes ?E11.9 - Type 2 diabetes mellitus without complications (ICD-10) Bipolar 1 disorder ?F31.9 - Bipolar disorder, unspecified (ICD-10) Surgical History (Updated 05/02/24 @ 23:46 by Lisa Schafer) History of nephrectomy, left ?Z90.5 - Acquired absence of kidney (ICD-10) H/O: hysterectomy ?Z90.710 - Acquired absence of both cervix and uterus (ICD-10) Social History (Updated 05/02/24 @ 23:44 by Lisa Schafer) Within the past year, how often did you have a drink containing alcohol: never Within the past year, how often did you have six or more drinks on one occasion: never Score interpretation: A score less than 3 is consistent with normal alcohol consumption. Smoking status: Never smoker Non-prescribed substance use: denies use Previous occupational history: Unemployed Highest level of school completed/degree received: 9th grade Are you now , , , , never or living with a partner: In a typical week, how many times do you talk on the telephone with family, friends, or neighbors: 3 or more times per week How often do you get together with friends or relatives: 3 or more times per week Little interest or pleasure in doing things: not at all Feeling down, depressed, or hopeless: not at all Feel stressed/tense/nervous/anxious/difficulty sleeping: not at all Do you think of yourself as: straight/heterosexual Gender Identity: female Meds Home Medications and Allergies Home Medications ?Medication ?Instructions ?Recorded ?Confirmed ?Type atorvastatin 80 mg tablet 80 mg PO QPM 05/02/24 05/03/24 History cholecalciferol (vitamin D3) 25 1,000 unit PO DAILY 05/02/24 05/02/24 History mcg (1,000 unit) capsule gabapentin 600 mg tablet 1,200 mg PO BID 05/02/24 05/02/24 History hydralazine 25 mg tablet 25 mg PO TID 05/02/24 05/02/24 History hydrochlorothiazide 25 mg tablet 25 mg PO DAILY 05/02/24 05/02/24 History hyoscyamine sulfate 0.125 mg 0.125 mg PO Q6H PRN dyspepsia 05/02/24 05/02/24 History sublingual tablet insulin human U-100 NPH-regulr 80 unit subcut QAM 05/02/24 05/03/24 History 70-30 mix 100 unit/mL subcutaneous susp (Humulin 70/30 U-100 Insulin) levothyroxine 125 mcg tablet 125 mcg PO DAILY 05/02/24 05/02/24 History liothyronine 5 mcg tablet 10 mcg PO DAILY 05/02/24 05/02/24 History losartan 100 mg tablet 100 mg PO DAILY 05/02/24 05/02/24 History metformin 500 mg tablet 500 mg PO DAILY 05/02/24 05/02/24 History ondansetron 4 mg disintegrating 4 mg PO Q6H PRN nausea and vomiting 05/02/24 05/02/24 History tablet pantoprazole 40 mg tablet,delayed 40 mg PO DAILY 05/02/24 05/02/24 History release phentermine 37.5 mg tablet 37.5 mg PO DAILY 05/02/24 05/02/24 History Allergies Allergy/AdvReac Type Severity Reaction Status Date / Time morphine Allergy Hives Verified 05/02/24 20:50 Penicillins Allergy Hives Verified 05/02/24 20:50 ketoralac Allergy Hives Uncoded 05/02/24 20:50 Exam Constitutional Vital Signs, click to edit/add: Last Vital Signs Temp 97.8 F 05/03/24 08:58 Pulse 92 H 05/03/24 08:58 Resp 18 05/03/24 08:58 BP 160/92 H 05/03/24 08:58 Pulse Ox 95 05/03/24 08:58 O2 Del Method Room Air 05/03/24 08:58 Documenting provider has reviewed patient's vital signs: yes Common normals: no apparent distress Chest Common normals: inspection of chest normal Respiratory Common normals: normal respiratory effort and no retractions Cardio Common normals: regular rate and regular rhythm GI Common normals: Normal to inspection, nondistended, normoactive bowel sounds present, soft to palpation, non-tender and no hepatosplenomegaly Results Labs Labs: Short CBC 05/02/24 05/03/24 Range/Units 21:00 03:47 WBC 8.1 7.9 (4.0-11.0) 10^3/uL Hgb 13.7 11.4 L (12.0-16.0) g/dL Hct 42.2 36.3 (36.0-48.0) % Plt Count 413 328 (150-450) 10^3/uL BMP 05/02/24 05/03/24 21:00 03:47 Sodium 138 139 Potassium 3.4 L 3.3 L Chloride 99 104 Carbon Dioxide 25.6 22.9 BUN 31.0 H 28.0 H Creatinine 3.47 H 3.12 H Glucose 135 H 143 H Calcium 9.2 8.3 L Liver Function 05/03/24 Range/Units 03:47 Total Bilirubin 0.4 (0.2-1.0) mg/dL Direct Bilirubin 0.1 (0.0-0.2) mg/dL AST 15 (15-37) U/L ALT 15 (14-59) U/L Alkaline Phosphatase 94 (46-116) U/L Albumin 2.9 L (3.4-5.0) g/dL Assessment and Plan Assessment and Plan (1) Acute renal failure: Plan Sinus tachycardia, acute renal failure as outlined above with the 188.6% above baseline creatinine. IV fluids have improved her creatinine so far. Will give another fluid bolus this morning. Her symptoms of nausea vomiting and diarrhea have improved. Will advance her diet this morning. If she tolerates lunch possible discharge to home later today. Hypokalemia-supplement Diarrhea-check stool studies Hypertension-continue with home medications Diabetes melitis-insulin sliding scale Admission status: Patient with significant nausea vomiting and diarrhea pro gressing to acute renal failure as outlined above-improved this morning. Better than 50% chance to be discharged home later today. Medically necessary treatment will only span 1 midnight, observation status.
[2024-05-03 11:19] LABS: Bilirubin Urine NEGATIVE (NEGATIVE); Blood Urine NEGATIVE (NEGATIVE); Clarity Urine CLEAR (CLEAR); Color Urine LT. YELLOW (YELLOW); Glucose Urine UA NEGATIVE (NEGATIVE); Ketones Urine NEGATIVE (NEGATIVE); Leukocyte Esterase Urine TRACE (NEGATIVE); Nitrite Urine NEGATIVE (NEGATIVE); Protein Urine NEGATIVE (NEG/TRACE); Specific Gravity Urine 1.015 (1.005-1.025); Urobilinogen Urine 0.2 EU/dL (0.2-1.0); pH Urine 5.5 (5.0-9.0)
[2024-05-03 11:19] LABS: Glucometer 147 mg/dL (74-106)
[2024-05-03 11:34] LABS: Cast Seen? SEEN #/LPF (NONE SEEN); Crystals Seen? Seen #/HPF (None Seen); Hyaline Casts Urine FEW; Uric Acid Crystals Urine RARE
[2024-05-03 11:35] LABS: Bacteria Urine TRACE #/HPF (NONE SEEN); Mucus Urine NONE SEEN (NONE SEEN); RBC Urine 0-2 #/HPF (0-2); Squamous Epithelial Cell Urine FEW #/LPF (NONE/RARE)
[2024-05-03 11:36] LABS: Urine Culture Indicated ALREADY ORDERED
--- NOTE | 2024-05-03 11:38 | CM.NOTE ---
Rounds made with Dr. Vallejo. Dr. Vallejo reviewed labs with [place]. Dr. Vallejo discussed advancing diet and if does ok, possible discharge later today. [place] verbalized understanding.
[2024-05-03] MEDS: ONDANSETRON PF 4 MG/2 ML VIAL IV ×3 (12:10→23:11)
[2024-05-03] MEDS: HYOSCYAMINE SULFATE 0.125 MG TAB.SUBL PO (12:10)
[2024-05-03] MEDS: CEFTRIAXONE 1,000 MG in 0.9 % SODIUM CHLORIDE 50 ML 100 MG IV (12:47)
[2024-05-03] MEDS: HYDRALAZINE HCL 25 MG TABLET PO ×2 (14:04→21:02)
[2024-05-03 14:22] LABS: C. Difficile PCR NEGATIVE (NEGATIVE)
[2024-05-03 14:56] LABS: Internal Control Within Normal Limits; Occult Blood Negative
[2024-05-03 16:17] LABS: Glucometer 75 mg/dL (74-106)
[2024-05-03 20:09] LABS: Glucometer 95 mg/dL (74-106)
[2024-05-03] MEDS: ATORVASTATIN CALCIUM 40 MG TABLET 80 MG PO (21:03)
[2024-05-04] MEDS: 0.9 % SODIUM CHLORIDE 1,000 ML 125 ML IV (02:30)
[2024-05-04 03:54] VITALS: BP 118/72; PULSE 84; TEMP 36.5; O2SAT 94
[2024-05-04 05:16] LABS: Basophils Percent Auto 0.3 % (0.2-2.0); Eosinophils Absolute Auto 0.2 10^3/uL (0.0-0.7); Eosinophils Percent Auto 2.2 % (0.9-7.0); Hematocrit 34.8 % (36.0-48.0); Immature Granulocytes Abs Auto 0.12 10^3/uL (0.00-0.03); Immature Granulocytes Pct Auto 1.7 % (0.0-0.5); Lymphocytes Absolute Auto 2.2 10^3/uL (1.2-3.8); Lymphocytes Percent Auto 32.1 % (20.5-60.0); Mean Corpuscular HGB Conc 31.6 g/dL (29.9-35.2); Mean Corpuscular Hemoglobin 27.8 pg (26.7-34.0); Mean Corpuscular Volume 87.9 fL (81.0-99.0); Mean Platelet Volume 10.1 fL (9.5-13.5); Monocytes Absolute Auto 0.7 10^3/uL (0.3-0.8); Monocytes Percent Auto 9.8 % (1.7-12.0); Neutrophils Absolute Auto 3.8 10^3/uL (1.4-6.5); Neutrophils Percent Auto 53.9 % (43.0-75.0); Platelet Count 309 10^3/uL (150-450); Red Blood Count 3.96 10^6/uL (4.20-5.40); Red Cell Distribution Width 13.7 % (11.0-15.0)
[2024-05-04 05:29] VITALS: O2SAT 95
[2024-05-04 05:29] LABS: Alanine Aminotransferase 16 U/L (14-59); Albumin Globulin Ratio 0.8; Albumin Level 2.7 g/dL (3.4-5.0); Alkaline Phosphatase 88 U/L (46-116); Anion Gap 13.5; Aspartate Amino Transferase 9 U/L (15-37); BUN Creatinine Ratio 9.3; Bilirubin Total 0.3 mg/dL (0.2-1.0); Calcium 7.8 mg/dL (8.5-10.1); Chloride 110 mmol/L (98-107); Estimated GFR (African America 27 (>=60); Estimated GFR (Non-African Ame 23 (>=60); Globulin 3.4 g/dL; Glucose 99 mg/dL (74-106); Potassium 3.5 mmol/L (3.5-5.1); Sodium 144 mmol/L (136-145); Total Protein 6.1 g/dL (6.4-8.2)
[2024-05-04 05:53] VITALS: BP 118/62
[2024-05-04] MEDS: HYDRALAZINE HCL 25 MG TABLET PO (05:53)
[2024-05-04] MEDS: ONDANSETRON PF 4 MG/2 ML VIAL IV (07:37)
[2024-05-04 07:41] VITALS: BP 123/70; PULSE 78; TEMP 36.8; O2SAT 95
[2024-05-04] MEDS: LIOTHYRONINE SODIUM 5 MCG TABLET 10 MCG PO (08:42)
[2024-05-04] MEDS: CHOLECALCIFEROL (VITAMIN D3) 25 MCG/1,000 UNITS TABLET PO (08:42)
[2024-05-04] MEDS: POTASSIUM CHLORIDE 10 MEQ ER TABLET 20 MEQ PO (08:42)
[2024-05-04] MEDS: OMEPRAZOLE 40 MG CAPSULE.DR PO (08:42)
[2024-05-04] MEDS: LEVOTHYROXINE SODIUM 125 MCG TABLET PO (08:43)
[2024-05-04] MEDS: GABAPENTIN 400 MG CAPSULE 1200 MG PO (08:43)
--- NOTE | 2024-05-04 08:59 | P.DS_ITS ---
DS: Providers Provider Date of admission: 05/02/24 22:46 Primary care physician: Ricardo Vallejo MD Consults: 05/02/24 Consult to Edging Supervisor Routine Reason for consult:: Advanced Directives 05/03/24 06:43 Consult to Pharmacy Routine Consulting Provider: Reason for consultation: Please [place] me when Med Rec is Updated Has provider been notified: No DS: Diagnosis Discharge Diagnosis (1) Acute renal failure: Plan Sinus tachycardia, acute renal failure as outlined above with the 188.6% above baseline creatinine. Stable at the time of discharge Hypokalemia-resolved at the time of discharge Diarrhea-pending at the time of discharge Hypertension-improved at the time of discharge Diabetes melitis-improved at the time of discharge Admission status: Patient with significant nausea vomiting and diarrhea progressing to acute renal failure as outlined above-improved this morning. Better than 50% chance to be discharged home later today. Medically necessary treatment will only span 1 midnight, observation status. ? DS: Summary Hospital Course Hospital Course: Patient mated with increasing nausea vomiting over the last 7 days. Diarrhea as well. Diarrhea improved while she was here in the hospital, nausea vomiting resolved. She was able to tolerate soft dinner last night but a good breakfast this morning. She feels almost back to her baseline. Her laboratory results would confirm that. Her creatinine is still somewhat elevated, on admission she was 188% above baseline. Currently 25% above baseline. At this point patient will be discharged home in improving condition. Medications to this. Follow-up with me in the office on Monday. Status at Discharge Overall status at discharge: patient is back to baseline Time Spent with Patient Time attestation: Total time spent providing and/or coordinating discharge services: Time spent: greater than 30 minutes Exam Constitutional Vital Signs, click to edit/add: Last Vital Signs Temp 98.3 F 05/04/24 07:41 Pulse 78 05/04/24 07:41 Resp 18 05/04/24 07:41 BP 123/70 05/04/24 07:41 Pulse Ox 95 05/04/24 07:41 O2 Del Method Room Air 05/04/24 07:41 Documenting provider has reviewed patient's vital signs: yes Common normals: no apparent distress Chest Common normals: inspection of chest normal Respiratory Common normals: normal respiratory effort and no retractions Cardio Common normals: regular rate and regular rhythm GI Common normals: Normal to inspection, nondistended, normoactive bowel sounds present, soft to palpation, non-tender and no hepatosplenomegaly DS: Data Data Completed and Pending Labs on day of discharge: Labs from last 24 hours 05/04/24 05/03/24 05/03/24 04:20 20:07 16:16 WBC 7.0 RBC 3.96 L Hgb 11.0 L Hct 34.8 L MCV 87.9 MCH 27.8 MCHC 31.6 RDW 13.7 Plt Count 309 MPV 10.1 Neut % (Auto) 53.9 Lymph % (Auto) 32.1 [place] % (Auto) 9.8 Eos % (Auto) 2.2 Baso % (Auto) 0.3 Neut # (Auto) 3.8 Lymph # (Auto) 2.2 [place] # (Auto) 0.7 Eos # (Auto) 0.2 Baso # (Auto) 0.0 Abs Immat Gran (auto) 0.12 H Imm/Tot Granulo (auto) 1.7 H Sodium 144 Potassium 3.5 Chloride 110 H Carbon Dioxide 24.0 Anion Gap 13.5 BUN 21.0 H Creatinine 2.27 H Est GFR ( Amer) 27 L Est GFR (Non-Af Amer) 23 L BUN/Creatinine Ratio 9.3 Glucose 99 Calcium 7.8 L Total Bilirubin 0.3 AST 9 L ALT 16 Alkaline Phosphatase 88 Total Protein 6.1 L Albumin 2.7 L Globulin 3.4 Albumin/Globulin Ratio 0.8 Urine Color Urine Clarity Urine pH Ur Specific [place] Urine Protein Urine Glucose (UA) Urine Ketones Urine Occult Blood Urine Nitrite Urine Bilirubin Urine Urobilinogen Ur Leukocyte Esterase Urine RBC Urine WBC Ur Squamous Epith Cells Urine Crystals Uric Acid Crystals Urine Bacteria Urine Casts Hyaline Casts Urine Mucus Ur Culture Indicated? Stool Occult Blood C. difficile Toxin PCR POC Glucose 95 75 05/03/24 05/03/24 11:18 10:00 WBC RBC Hgb Hct MCV MCH MCHC RDW Plt Count MPV Neut % (Auto) Lymph % (Auto) [place] % (Auto) Eos % (Auto) Baso % (Auto) Neut # (Auto) Lymph # (Auto) [place] # (Auto) Eos # (Auto) Baso # (Auto) Abs Immat Gran (auto) Imm/Tot Granulo (auto) Sodium Potassium Chloride Carbon Dioxide Anion Gap BUN Creatinine Est GFR ( Amer) Est GFR (Non-Af Amer) BUN/Creatinine Ratio Glucose Calcium Total Bilirubin AST ALT Alkaline Phosphatase Total Protein Albumin Globulin Albumin/Globulin Ratio Urine Color Lt. yellow Urine Clarity Clear Urine pH 5.5 Ur Specific [place] 1.015 Urine Protein Negative Urine Glucose (UA) Negative Urine Ketones Negative Urine Occult Blood Negative Urine Nitrite Negative Urine Bilirubin Negative Urine Urobilinogen 0.2 Ur Leukocyte Esterase Trace A Urine RBC 0-2 Urine WBC 2-5 A Ur Squamous Epith Cells Few A Urine Crystals Seen A Uric Acid Crystals Rare Urine Bacteria Trace A Urine Casts Seen A Hyaline Casts Few Urine Mucus None seen Ur Culture Indicated? Already ordered Stool Occult Blood Negative C. difficile Toxin PCR Negative POC Glucose 147 H Discharge Plan Discharge Disposition: Home, Self-Care Condition: Fair Discharge Medications: Continued atorvastatin 80 mg tablet 80 mg PO QPM cholecalciferol (vitamin D3) 25 mcg (1,000 unit) capsule 1,000 unit PO DAILY gabapentin 600 mg tablet 1,200 mg PO BID hydralazine 25 mg tablet 25 mg PO TID hydrochlorothiazide 25 mg tablet 25 mg PO DAILY hyoscyamine sulfate 0.125 mg tablet, sublingual 0.125 mg PO Q6H PRN (Reason: dyspepsia) Humulin 70/30 U-100 Insulin 100 unit/mL (70-30) suspension 80 unit SUBCUT QAM Rx Instructions: 80 AM AND 50 PM levothyroxine 125 mcg tablet 125 mcg PO DAILY liothyronine 5 mcg tablet 10 mcg PO DAILY losartan 100 mg tablet 100 mg PO DAILY metformin 500 mg tablet 500 mg PO DAILY ondansetron 4 mg tablet,disintegrating 4 mg PO Q6H PRN (Reason: nausea and vomiting) pantoprazole 40 mg tablet,delayed release (DR/EC) 40 mg PO DAILY phentermine 37.5 mg tablet 37.5 mg PO DAILY Print Language: Iranian Forms: Portal Instructions Follow Up Appointments: May 08 @ 11:15am with Dr. Vallejo [phone]
--- NOTE | 2024-05-06 11:28 | CM.DCFOLLOWU ---
1st attempt 05/06/24
--- NOTE | 2024-05-07 15:45 | CM.DCFOLLOWU ---
2nd attempt 05/07/24
--- NOTE | 2024-05-08 15:09 | CM.DCFOLLOWU ---
3rd attempt 05/08/24
== END 2024-05-04 10:21 | disposition home or self-care (01) ==
LOC: ER 22:19 → MS 05-03 11:35
PROVIDERS: Registered Nurse; Admitting Provider Family Medicine; Emergency Provider Emergency Medicine; PCP Family Medicine; Visit Provider Family Medicine
DX: N17.9 Acute kidney failure, unspecified (principal); R00.0 Tachycardia, unspecified; E87.6 Hypokalemia; R19.7 Diarrhea, unspecified; I10 Essential (primary) hypertension; E11.9 Type 2 diabetes mellitus without complications; N39.0 Urinary tract infection, site not specified; B95.61 Methicillin susceptible Staphylococcus aureus infection as the cause of diseases classified elsewhere; Z90.5 Acquired absence of kidney; Z87.442 Personal history of urinary calculi
CPT/HCPCS: 36415; 80048; 80053; 80076; 81001; 82948; 83735; 85025; 87045; 87046; 87086; 87150; 87186; 87427; 87493; 87507; 94761; 96361; 96365; 96375; 96376; 99285; G0328; G0378; J0696; J2405

== ENCOUNTER 2024-09-13 07:31 | Outpatient (OUT) | payer OTHER, SELFPAY ==
--- OUTSIDE RECORDS SUMMARY | 2024-09-13 07:36 | XMS_ITS | CCD ---
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 Name Role Phone GARRY RAMOS Referring Unavailable GARRY RAMOS Primary Care Unavailable SHOLA VILLAFUERTE Attending Unavailable SHOLA VILLAFUERTE Admitting Unavailable Garry Ramos MD Primary Care Provider [phone] CHRISTI CHANCE Referring Unavailable GARRY RAMOS Primary Care Unavailable GARRY RAMOS Primary Care Unavailable RADHA, ROBERT Consulting Unavailable PALOMA ARCEO Admitting Unavailable PALOMA ARCEO Attending Unavailable KECHINO ADAN S Consulting Unavailable SOLITARIO LIVIA Admitting Unavailable SOLITARIO LIVIA Attending Unavailable GARRY RAMOS Primary Care Unavailable NORIEGA, EMIR Consulting Unavailable MATEOSHAHID Consulting Unavailable Bakhous, Aziz Unavailable RICHARD .DR CASTAÑEDA Attending Unavailable HOY ., DR CASTAÑEDA [...] Unavailanna ALCANTAR, DR MARAH Estrada Consulting Unavailable GARRY RAMOS Primary Care Unavailable MARAH ELLISON Attending Unavailable EN EPPERSON Admitting Unavailable TANIA VALERIO Consulting Unavailable Garry Ramos MD Primary Care Provider [phone] DUGLAS REEDER Attending Unavailable Unavailable Unavailable Unavailable Allergies Allergy Classification Reported Allergen(s) Allergy Type Date of Onset Reaction(s) Facility Opioid Agonists (1 source) Morphine; Translations: [MORPHINE] Drug Allergy 9 [facility] Repository Penicillins (antibiotic) (1 source) Penicillin; Translations: [PENICILLIN] Drug Allergy 9 [facility] Rep[facility] (5 sources) HYDROmorphone; Translations: [HYDROMORPHONE] Drug Allergy [facility] (6 sources) Morphine; Translations: [MORPHINE] Drug Allergy 6 [facility] Work Phone: (7 sources) Penicillins; Translations: [Penicillins] Propensity to adverse reactions to drug 9 Anaphylaxis [facility] (4 sources) Ciprofloxacin; Translations: [CIPROFLOXACIN] Drug Allergy 6 [facility] (1 source) penicillAMINE Drug Allergy [facility] Other (2 sources) Ciprofloxacin Drug Allergy 6 [facility] Repository (1 source) HYDROmorphone Drug Allergy [facility] Rep[facility] (2 sources) Morphine Drug Allergy 9 [facility] Rep[facility] Medications Current Medications Medication Drug Class(es) [...] COCET) 5-325 MG per tablet 2 tablet apixaban 5 mg oral tablet (1 source) Factor Xa Inhibitor Start: 08-06-2024 End: 09-05-2024 take 1 tablet by mouth in the morning, then take 1 tablet by mouth at bedtime apixaban (ELIQUIS) 5 mg tablet Take 1 tablet (5 mg total) by mouth in the morning and 1 tablet (5 mg total) before bedtime. Do all this for 30 days. 60 tablet 08/06/2024 09/05/2024 Active clopidogrel 75 mg oral tablet (1 source) P2Y12 Platelet Inhibitor Start: 08-07-2024 End: 08-06-2024 take 1 tablet by mouth in the morning clopidogreL (PLAVIX) 75 mg tablet Take 1 tablet (75 mg total) by mouth in the morning for 30 days. 30 tablet 08/07/2024 08/06/2024 Discontinued (Stop Taking at Discharge) Start: 08-07-2024 End: 08-06-2024 take 1 tablet by mouth in the morning clopidogreL (PLAVIX) 75 mg tablet Take 1 tablet (75 mg total) by mouth in the morning for 30 days. 30 tablet 08/07/2024 08/06/2024 Discontinued (Stop Taking at Discharge) 1000 ml glucose 100 mg/ml injection (6 [...] notify provider. hydroCHLOROthiazide 25 mg oral tablet (3 sources) Thiazide Diuretic End: 07-22-2022 hydroCHLOROthiazide (HYDRODIURIL) 25 mg tablet 1 tablet (25 mg total) daily. Active ibuprofen 800 mg oral tablet (1 source) Nonsteroidal Anti-inflammator y Drug Start: 07-26-2022 End: 08-05-2022 take 1 [...] vial 25 Units insulin isophane, human 70 unt/ml / insulin, regular, human 30 unt/ml injectable suspension (4 sources) Insulin Start: 12-28-2021 insulin NPH an d regular human (HumuLIN 70/30 U-100 Insulin) 100 unit/mL (70-30) injection 80 units am and 50 units pm 10 mL 12 12/28/2021 Active HumuLIN 70/30 (7 0-30) 100 UNIT/ML as [...] (KLOR-CON M) extended release tablet 40 mEq semaglutide (OZEMPIC SUBQ) (1 source) semaglutide (OZEMPIC SUBQ) Inject under the skin. Active 1000 ml sodium chloride 9 mg/ml injection (10 sources) Start: 07-25-2022 take 25 mL intravenously every hour as needed 25 mL, IntraVENous, at 100 mL/hr, PRN, If patient receiving piggyback infusions without ordered maintenance IV fluids or with frequent/long duration piggyback infusions, Starting on Mon07/25/22 at 2003 Administer at the same rate as the [...] mL, IntraVENous, PRN, Starting on Mon07/25/22 at 2003, Until Discontinued, Line Care, After every IV [...] frequent line interruptions/ long duration, Starting on 9/12/22 at 1814 For piggyback infusion, administer at [...] needed 5-40 mL, IntraVENous, PRN, Starting on 07/18/22 at 1814, Until Lizy 07/21/22 at 1559, [...] aspirin 81 mg delayed release oral tablet (6 sources) Platelet Aggregation Inhibitor, Nonsteroidal Anti-inflammatory Drug Start: 07-22-2022 End: 08-21-2022 take 81 mg by mouth once daily 81 mg, Oral, DAILY, First dose on Mon07/26/22 at 0900, Until Discontinued Do not crush or break. Aspirin 81 MG 1 daily Active atorvastatin 80 mg oral tablet (6 sources) HMG-CoA Reductase Inhibitor Start: 12-28-2021 take 80 mg by mouth once daily [...] 20 mg gabapentin 600 mg oral tablet (7 sources) Anti-epileptic Agent Start: 07-22-2022 End: 08-21-2022 take 600 mg by mouth three times daily 600 mg, Oral, 3 TIMES DAILY, First dose on Mon07/25/22 at 2300, Until Discontinued Start: 07-18-2022 gabapentin (NE URONTIN) capsule 600 mg Start: 03-21-2020 take 2 tablets by mo [facility] every twelve hours Gabapentin 600 MG 2 [...] mg levothyroxine sodium 0.1 mg oral tablet (7 sources) l-Thyroxine Start: 07-26-2022 take 200 ug by mouth once daily 200 mcg, Oral, DAILY, First dose on Mon07/26/22 at 0700, Until Discontinued Tube feeding (TF) interaction, obtain physician order to manage, recommend holding TF for 30 minutes before and after dose. Start: 07-19-2022 take 200 ug by mouth once lauren y 200 mcg, Oral, DAILY, First dose on Mon07/19/22 at 0700, Until Discontinued Tube feeding (TF) interaction, obtain physician order to manage, recommend holding TF for 30 minutes before and after dose. Start: 12-29-2021 End: 08-21-2022 take 1 tablet by mouth once daily levothyroxine (SYNTHROID) 200 MCG tablet Take 1 tablet by mouth Daily 30 tablet 0 07/22/2022 08/21/2022 Active take 1 tablet by ivana th once daily in the morning Synthroid 200 MCG 1 tablet in the morning on an empty stomach Orally Once a day Active losartan potassium 50 mg oral tablet (5 sources) Angiotensin 2 Receptor Brandon Start: 07-26-2022 take 100 mg by mouth once daily 100 mg, Oral, DAILY, First dose on Mon07/26/22 at 0900, Until Discontinued Start: 12-29-2021 take 1 tablet by ivana th once daily losartan (COZAAR) 100 mg tablet Take 1 tablet (100 mg total) by mouth daily. 30 tablet 12/29/2021 Active magnesium oxide 400 mg oral tablet (5 sources) Start: 07-25-2022 take 400 mg by mouth twice daily as needed 400 mg, Oral, 2 TIMES DAILY PRN, Starting on Mon07/25/22 at 2253, Until Discontinued, for low Mag Start: 12-28-2021 take 1 tablet by ivana th once daily magnesium oxide (MAGOX) 400 mg tablet Take 1 tablet (400 mg total) by mouth daily. 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; Translations: [Embolic stroke] Onset: 08-06-2024 08-06-2024 Chronic Allergic reactions (3 sources) Allergy to penicillin; Translations: [Allergy status to penicillin] Onset: 07-20-2022 Episodic Blindness and vision defects (3 sources) Unspecified visual disturbance; Translations: [Diplopia] Onset: 12-26-2021 12-26-2021 Episodic Calculus of urinary tract (17 sources) Kidney stone; Translations: [Calculus of kidney] Onset: 07-18-2022 Episodic Chronic kidney disease (6 sources) Chronic kidney disease stage 4; Translations: [Chronic kidney disease, stage 4 (severe)] Onset: 03-10-2023 Chronic Complication of device; implant or graft (2 sources) Displacement of nephrostomy tube; Translations: [Displacement of nephrostomy catheter, initial encounter] Onset: 07-25-2022 Episodic Complications of surgical procedures or medical care (2 sources) Complication of external stoma of urinary tract; Translations: [Other complication of incontinent external stoma of urinary tract] Onset: 07-25-2022 Episodic Congestive heart failure; nonhypertensive (1 source) Unspecified diastolic (congestive) heart failure; Translations: [UNSPECIFIED DIASTOLIC HEART FAILURE] Onset: 04-19-2022 Chronic Coronary atherosclerosis and other heart disease (1 source) Atherosclerotic heart disease of [place] coronary artery without angina pectoris; Translations: [ASHD KAW CA W/O ANGINA PECTORIS] Onset: 07-20-2022 Chronic Deficiency and other anemia (2 sources) Anemia, unspecified; Translations: [ANEMIA UNSPECIFIED] Onset: 03-16-2023 Episodic Diabetes mellitus with complications (4 sources) Type 2 diabetes mellitus in obese; Translations: [Type 2 diabetes mellitus with other specified complication] Onset: 12-26-2021 Chronic Diabetes mellitus without complication (4 sources) Insulin treated type 2 diabetes mellitus; Translations: [Type 2 diabetes mellitus without complications] Onset: 07-18-2022 Chronic Diabetes mellitus without complication (3 sources) Other abnormal glucose; Translations: [Hyperglycemia, unspecified] Onset: 11-30-2022 08-06-2024 Episodic Diseases of white blood cells (3 sources) Leukocytosis; Translations: [Elevated white blood cell count, unspecified] Onset: 07-18-2022 Chronic Disorders of lipid metabolism (4 sources) Pure hypercholesterolemia, unspecified; Translations: [Mixed hyperlipidemia] Onset: 12-26-2021 08-06-2024 Chronic Essential hypertension (6 sources) Hypertensive disorder; Translations: [Essential (primary) hypertension] Onset: 12-26-2021 Chronic Headache; including migraine (4 sources) Other complicated headache syndrome; Translations: [Headache] Onset: 02-01-2022 08-06-2024 Episodic Headache; including migraine (1 source) Headache; including migraine; Translations: [Headache, unspecified] Onset: 08-06-2024 Hypertension with complications and secondary hypertension (3 sources) Hypertensive renal disease; Translations: [Hypertensive chronic kidney disease with stage 1 through stage 4 chronic kidney disease, or unspecified chronic kidney disease] Onset: 04-19-2022 Chronic Mood disorders (4 sources) Depressive disorder; Translations: [Depression] Onset: 07-18-2022 Chronic Nephritis; nephrosis; renal sclerosis (5 sources) Atrophy of left kidney; Translations: [Atrophy of kidney (terminal)] Onset: 07-18-2022 Chronic Nutritional deficiencies (1 source) Vitamin D deficiency, unspecified; Translations: [VITAMIN D DEFICIENCY UNSPECIFIED] Onset: 04-19-2022 Chronic Occlusion or stenosis of precerebral arteries (2 sources) Occlusion and stenosis of bilateral carotid arteries; Translations: [Internal carotid artery stenosis] Onset: 12-25-2021 12-25-2021 Chronic Other aftercare (3 sources) Patient encounter status; Translations: [correction (current) use of non-steroidal anti-inflammatories (NSAID)] Onset: 07-20-2022 Episodic Other and ill-defined heart disease (2 sources) Intracardiac thrombosis, not elsewhere classified; Translations: [Intracardiac thrombosis, not elsewhere classified] Onset: 09-02-2024 Chronic Other circulatory disease (3 sources) H/O: heart disorder; Translations: [Personal history of other diseases of the circulatory system] Onset: 07-18-2022 Episodic Other nervous system disorders (1 source) Neuropathy; Translations: [Polyneuropathy, unspecified] Chronic Other nutritional; endocrine; and metabolic disorders (1 source) Obesity; Translations: [Obesity, unspecified] Chronic Other nutritional; endocrine; and metabolic disorders (2 sources) Obesity, unspecified; Translations: [OBESITY UNSPECIFIED] Onset: 03-16-2023 Chronic Other nutritional; endocrine; and metabolic disorders (1 source) Morbid (severe) obesity due to excess calories; Translations: [MORBID SEVERE OBES D/T EXCESS JENARO] Onset: 07-20-2022 Chronic Other nutritional; endocrine; and metabolic disorders (1 source) Body mass index (BMI) 40.0-44.9, adult; Translations: [BODY MASS INDEX BMI 40.0-44.9 ADULT] Onset: 07-20-2022 Chronic Other nutritional; endocrine; and metabolic disorders (1 source) Hypomagnesemia; Translations: [Hypomagnesemia] Onset: 08-04-2024 08-06-2024 Chronic Other upper respiratory infections (1 source) Sinusitis; Translations: [Chronic infection of sinus NOS] Chronic Residual codes; unclassified (1 source) Absent kidney; Translations: [Acquired absence of kidney] Episodic Residual codes; unclassified (2 sources) Acquired absence of kidney; Translations: [ACQUIRED ABSENCE OF KIDNEY] Onset: 03-16-2023 Episodic Septicemia (except in labor) (3 sources) Acute kidney injury due to sepsis; Translations: [Sepsis, unspecified organism] Onset: 07-20-2022 Episodic Thyroid disorders (4 sources) Hypothyroidism; Translations: [Hypothyroidism, unspecified] Onset: 07-18-2022 Chronic Unclassified (1 source) CONTACT W/AND (SUSP) EXPOS COVID-19; Translations: [CONTACT W/AND (SUSP) EXPOS COVID-19] Onset: 07-20-2022 Unclassified (1 source) PAIN LEFT EYE Onset: 08-03-2024 Past or Other Problems Problem Classification Problem Date Documented Da te Episodic/Chronic Abdominal pain (6 sources) Left flank pain; Translations: [Unspecified abdominal pain] Onset: 07-18-2022 Episodic Fluid and electrolyte disorders (10 sources) Metabolic acidosis; Translations: [Acidosis] Onset: 07-20-2022 Episodic Malaise and fatigue (5 sources) Other fatigue; Translations: [OTHER FATIGUE] Onset: 04-15-2022 Episodic Other aftercare (1 source) correction (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; Translations: [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] Onset: 07-20-2022 Episodic Other aftercare (1 source) Other prison (current) drug therapy; Translations: [OTH CONVEYOR LINE BAKERY WORKER CURRENT DRUG THERAPY] Onset: 07-20-2022 Episodic Other aftercare (1 source) 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; Translations: [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 LINE BAKERY WORKER USE ORAL HYPOGLYCEMIC DX] Onset: 07-20-2022 Episodic Other screening for suspected conditions (not mental disorders or infectious disease) (1 source) Encounter for screening for malignant neoplasm of rectum; Translations: [ENC SCREEN MALIG NEOPLASM RECTUM] Onset: 04-19-2022 Episodic Urinary tract infections (6 sources) Acute pyelonephritis; Translations: [Acute pyelonephritis] Onset: 07-19-2022 Episodic Results Test Name Value Interpretation Reference Range Facility Office Visiton 09-02-2024 Follow-up visit [id number] Asa Thompson 1970 F Date Provider Department Center 09/02/2024 Herminio-DUGLAS REEDER CARD [facility] Family History Problem Relation Age of Onset Coronary artery disease Father Other Father Family Status - Relation Status Age at Father Level of Service:58249 MT OFFICE/OUTPATIENT NEW MODERATE MDM 45 MINUTES Normal [facility] CBC AND AUTO DIFFon 08-06-20 ABSOLUTE BASOPHIL 0.0 X10E9/L Normal 0.0-0.2 [facility] Comment on above: Performed By: #### C BCA, 38580-7, CMP #### [facility] ([id number]) [address] [place] [address], [place] [address] #### HA1C #### [facility] ([id number]) [address], [address] [place] [address] ABSOLUTE NEUTROPHIL 4.0 X10E9/L Normal 1.5-6.6 [facility] Comment on above: Performed By: #### Jaimee CH, 78324-0, CMP #### [facility] ([id number]) [address] [place] [address] #### HALulu #### [facility] ([id number]) [address], [address] [place] [address] Basophils/100 WBC (Bld) 0.6 % Normal [facility] Comment on above: Performed By: #### Jaimee CH, 91969-6, CMP #### [facility] ([id number]) [address] [place] [address] #### ARUN #### [facility] ([id number]) [address], [address] [place] [address] Eosinophils (Bld) [#/Vol] 0.2 10*3/uL Normal 0.0-0.4 [facility] Comment on above: Performed By: #### Jaimee CH, 74205-3, CMP #### [facility] ([id number]) [address] [place] [address] #### HALulu #### [facility] ([id number]) [address], [address] [place] [address] Eosinophils/100 WBC (Bld) 2.3 % Normal [facility] Comment on above: Performed By: #### Jaimee CH, 01202-9, CMP #### [facility] ([id number]) [address] [place] [address] #### HALulu #### [facility] ([id number]) [address], [address] [place] [address] Erythrocyte distribution width (RBC) [Ratio] 15.1 % High 11.5-15.0 [facility] Comment on above: Performed By: #### Jaimee CH, 62853-8, CMP #### [facility] ([id number]) [address] [place] [address] #### HA1C #### [facility] ([id number]) [address], [address] [place] [address] Hematocrit (Bld) [Volume fraction] 32.9 % Low 35-47 [facility] Comment on above: Performed By: #### Jaimee CH, 09424-7, CMP #### [facility] ([id number]) [address] [place] [address] #### HA1C #### [facility] ([id number]) [address], [address] [place] [address] Hemoglobin (Bld) [Mass/Vol] 11.4 g/dL Low 11.7-15.5 [facility] Comment on above: Performed By: #### Jaimee CH, 67377-0, CMP #### [facility] ([id number]) [address] [place] [address] #### HA1C #### [facility] ([id number]) [address], [address] [place] [address] Lymphocytes (Bld) [#/Vol] 2.4 10*3/uL Normal 1.0-3.5 [facility] Comment on above: Performed By: #### Jaimee CH, 40683-8, CMP #### [facility] ([id number]) [address] [place] [address] #### HA1C #### [facility] ([id number]) [address], [address] [place] [address] Lymphocytes/100 WBC (Bld) 33.9 % Normal [facility] Comment on above: Performed By: #### C DIMA, 45064-1, CMP #### [facility] ([id number]) [address] [place] [address] #### HALulu #### [facility] ([id number]) [address], [address] [place] [address] MCH (RBC) [Entitic mass] 29.2 pg Normal 27-34 [facility] Comment on above: Performed By: #### C DIMA, 45689-0, CMP #### [facility] ([id number]) [address] [place] [address] #### HALulu #### [facility] ([id number]) [address], [address] [place] [address] MCHC (RBC) [Mass/Vol] 34.7 g/dL Normal 32-36 [facility] Comment on above: Performed By: #### Jaimee CH, 23252-3, CMP #### [facility] ([id number]) [address] [place] [address] #### HALulu #### [facility] ([id number]) [address], [address] [place] [address] MCV (RBC) [Entitic vol] 84 fL Normal 80-100 [facility] Comment on above: Performed By: #### Jaimee CH, 29226-1, CMP #### [facility] ([id number]) [address] [place] [address] #### HA1C #### [facility] ([id number]) [address], [address] [place] [address] Monocytes (Bld) [#/Vol] 0.4 10*3/uL Normal 0-0.9 [facility] Comment on above: Performed By: #### Jaimee CH, 41123-9, CMP #### [facility] ([id number]) [address] [place] [address] #### HALulu #### [facility] ([id number]) [address] [place] [address] Monocytes/100 WBC (Bld) 6.2 % Normal [facility] Comment on above: Performed By: #### Jaimee CH, 04576-8, CMP #### [facility] ([id number]) [address] [place] [address] #### HALulu #### [facility] ([id number]) [address] [place] [address] Neutrophils/100 WBC (Bld) 57.0 % Normal [facility] Comment on above: Performed By: #### Jaimee CH, 54205-0, CMP #### [facility] ([id number]) [address] [place] [address] #### ARUN #### [facility] ([id number]) [address] [place] [address] Platelet mean volume (Bld) [Entitic vol] 8.2 fL Normal 7-12 [facility] Comment on above: Performed By: #### Jaimee CH, 25352-0, CMP #### [facility] ([id number]) [address] [place] [address] #### HA1C #### [facility] ([id number]) [address], [address] [place] [address] Platelets (Bld) [#/Vol] 336 10*3/uL Normal 150-450 [facility] Comment on above: Performed By: #### Jaimee CH, 16013-3, CMP #### [facility] ([id number]) [address] [place] [address] #### HA1C #### [facility] ([id number]) [address] [place] [address] [address] [place] [address] RBC COUNT 3.91 X10E12/L Normal 3.80-5.20 [facility] Comment on above: Performed By: #### Jaimee CH, 40485-2, CMP #### [facility] ([id number]) [address] [place] [address] #### HA1C #### [facility] ([id number]) [address] [place] [address], [address] [address] WBC (Bld) [#/Vol] 7.1 10*3/uL Normal 4.0-11.0 [facility] Comment on above: Performed By: #### Jaimee CH, 59987-4, CMP #### [facility] ([id number]) [address] [place] [address] #### HA1C #### [facility] ([id number]) [address] [place] [address], [address] [address] COMPREHENSIVE METABOLIC PANE [facility] 08-06-2024 Albumin [Mass/Vol] 3.6 g/dL Normal 3.2-5.3 [facility] Comment on above: Performed By: #### Jaimee CH, 95590-3, CMP #### [facility] ([id number]) [address] [place] [address] #### HA1C #### [facility] ([id number]) [address] [place] [address] ALP [Catalytic activity/Vol] 87 U/L Normal 39-130 [facility] Comment on above: Performed By: #### Jaimee BCA, 21627-2, CMP #### [facility] ([id number]) [address] [place] [address], [place] [address] #### HA1C #### [facility] ([id number]) [address], [address] [place] [address] ALT [Catalytic activity/Vol] 19 U/L Normal 0-31 [facility] Comment on above: Performed By: #### Jaimee CH, 85110-8, CMP #### [facility] ([id number]) [address] [place] [address] #### HA1C #### [facility] ([id number]) [address] [place] [address] Anion gap [Moles/Vol] 10 mmol/L Normal 5-15 [facility] Comment on above: Performed By: #### Jaimee CH, 71216-2, CMP #### [facility] [facility] ([id number]) [address] [place] [address] 42796 #### HA1C #### [facility] ([id number]) [address] [facility], [address] [place] [address] AST [Catalytic activity/Vol] 20 U/L Normal 0-41 [facility] Comment on above: Performed By: #### Jaimee CH, 94871-4, CMP #### [facility] ([id number]) [address] [place] [address] 12178 #### HA1C #### [facility] ([id number]) [address], [address] [place] [address] Bilirubin [Mass/Vol] 0.3 mg/dL Normal 0.3-1.2 [facility] Comment on above: Performed By: #### Jaimee CH, 42578-4, CMP #### [facility] ([id number]) [address] [place] [address] 43623 #### HA1C #### [facility] ([id number]) [address], [address] [place] [address] Calcium [Mass/Vol] 8.8 mg/dL Normal 8.5-10.5 [facility] Comment on above: Performed By: #### C DIMA, 54062-3, CMP #### [facility] ([id number]) [address] [place] [address] 37533 #### HA1C #### [facility] ([id number]) [address] [facility], [address] [place] [address] Chloride [Moles/Vol] 103 mmol/L Normal 98-109 [facility] Comment on above: Performed By: #### C DIMA, 66768-3, CMP #### [facility] ([id number]) [address] [place] [address] 37335 #### HA1C #### [facility] ([id number]) [address] [facility], [address] [place] [address] CO2 [Moles/Vol] 19 mmol/L Low 22-32 [facility] Comment on above: Performed By: #### C DIMA, 84577-6, CMP #### [facility] ([id number]) [address] [place] [address] 27894 #### HA1C #### [facility] ([id number]) [address] [facility], [address] [place] [address] Creatinine [Mass/Vol] 1.58 mg/dL High 0.40-1.00 [facility] Comment on above: Result Comment: METH OD TRACEABLE TO IDMS STANDARD Performed By: #### C DIMA, 05281-3, CMP #### [facility] ([id number]) [address] [place] [address] 53265 #### HA1C #### [facility] ([id number]) [address] [facility], [address] [place] [address] GFR/1.73 sq M.predicted among non-blacks MDRD (S/P/Bld) [Vol rate/Area] 39 mL/min/{1.73_m2} Low >59 [facility] Comment on above: Result Comment: Reported eGFR is based on the CKD-EPI 1 equation that does not use a race coefficient. Performed By: #### C DIMA, 64748-1, CMP #### [facility] ([id number]) [address] [place] [address] 56449 #### HA1C #### [facility] ([id number]) [address] [facility], [facility] [address] [place] [address] Glucose [Mass/Vol] 312 mg/dL High 65-99 [facility] Comment on above: Performed By: #### C DIMA, 46775-9, CMP #### [facility] ([id number]) [address] [place] [address] 57273 #### HA1C #### [facility] ([id number]) [address] [facility] [address], [address] [place] [address] Potassium [Moles/Vol] 4.7 mmol/L Normal 3.5-5.0 [facility] Comment on above: Performed By: #### C DIMA, 55864-9, CMP #### [facility] ([id number]) [address] [place] [address] 93605 #### HA1C #### [facility] ([id number]) [address], [address] [place] [address] Protein [Mass/Vol] 6.7 g/dL Normal 6.0-8.0 [facility] Comment on above: Performed By: #### C BCA, 56793-1, CMP #### [facility] ([id number]) [address] [place] [address] 21331 #### HA1C #### [facility] ([id number]) [address], [address] [place] [address] Sodium [Moles/Vol] 132 mmol/L Low 134-146 [facility] Comment on above: Performed By: #### Jaimee CH, 50610-2, CMP #### [facility] ([id number]) [address] [place] [address] 11765 #### HA1C #### [facility] ([id number]) [address], [address] [place] [address] Urea nitrogen [Mass/Vol] 29 mg/dL High 5-23 [facility] Comment on above: Performed By: #### Jaimee CH, 60846-9, CMP #### [facility] ([id number]) [address] [place] [address] 28353 #### HA1C #### [facility] ([id number]) [address], [address] [place] [address] Glucose Glucometer (BldC) [M ass/Vol]on 08-06-2024 Glucose [Mass/Vol] 319 mg/dL High 65-99 [facility] Heparin unfractionated Chrom ogenic method Qn (PPP)on 08-06-2024 ANTI XA UFH 0.29 IU/mL Low 0.30-0.70 [facility] Comment on above: Result Comment: Opti mal time for testing is 6 hrs post dosage This test is specific for monitoring patients on UFH, and is not recommended for use with other Anti-Xa medications. Performed By: #### Jaimee CH, 08894-2, CMP #### [facility] ([id number]) [address] [place] [address] 00020 #### HA1C #### [facility] ([id number]) [address], [address] [place] [address] ANTI XA UFH 0.33 IU/mL Normal 0.30-0.70 [facility] Comment on above: Result Comment: Opti mal time for testing is 6 hrs post dosage This test is specific for monitoring patients on UFH, and is not recommended for use with other Anti-Xa medications. Performed By: #### Jaimee CH, 58812-9, CMP #### [facility] ([id number]) [address] [place] [address] 87261 #### HA1C #### [facility] ([id number]) [address] [facility], [address] [place] [address] MAGNESIUMon 08-06-2024 Magnesium [Mass/Vol] 1.8 mg/dL Normal 1.8-2.6 [facility] Comment on above: Performed By: #### Jaimee HC, 72308-5, CMP #### [facility] ([id number]) [address] [place] [address] 80031 #### HA1C #### [facility] ([id number]) [address] [facility] [address], [address] [place] [address] CBC AND AUTO DIFFon 08-05-20 24 ABSOLUTE BASOPHIL 0.0 X10E9/L Normal 0.0-0.2 [facility] Comment on above: Performed By: #### Jaimee CH, 72394-5, CMP #### [facility] ([id number]) [address] [place] [address] 97685 #### HA1C #### [facility] ([id number]) [address] [facility], [address] [place] [address] ABSOLUTE NEUTROPHIL 3.0 X10E9/L Normal 1.5-6.6 [facility] Comment on above: Performed By: #### Jaimee CH, 72218-3, CMP #### [facility] ([id number]) [address] [place] [address] 15604 #### HA1C #### [facility] ([id number]) [address] [facility], [address] [place] [address] Basophils/100 WBC (Bld) 0.4 % Normal [facility] Comment on above: Performed By: #### Jaimee CH, 37974-9, CMP #### [facility] ([id number]) [address] [place] [address] 35059 #### HA1C #### [facility] ([id number]) [address], [address] [place] [address] Eosinophils (Bld) [#/Vol] 0.1 10*3/uL Normal 0.0-0.4 [facility] Comment on above: Performed By: #### Jaimee CH, 08106-5, CMP #### [facility] ([id number]) [address] [place] [address] 34712 #### HALulu #### [facility] ([id number]) [address], [address] [place] [address] Eosinophils/100 WBC (Bld) 2.6 % Normal [facility] Comment on above: Performed By: #### Jaimee CH, 63359-2, CMP #### [facility] ([id number]) [address] [place] [address] 02563 #### HALulu #### [facility] ([id number]) [address], [address] [place] [address] Erythrocyte distribution width (RBC) [Ratio] 14.7 % Normal 11.5-15.0 [facility] Comment on above: Performed By: #### Jaimee CH, 21142-7, CMP #### [facility] ([id number]) [address] [place] [address] 59073 #### HA1C #### [facility] ([id number]) [address], [address] [place] [address] Hematocrit (Bld) [Volume fraction] 32.3 % Low 35-47 [facility] Comment on above: Performed By: #### C DIMA, 88238-0, CMP #### [facility] ([id number]) [address] [place] [address] 27878 #### HA1C #### [facility] ([id number]) [address], [address] [place] [address] Hemoglobin (Bld) [Mass/Vol] 11.1 g/dL Low 11.7-15.5 [facility] Comment on above: Performed By: #### C DIMA, 90599-6, CMP #### [facility] ([id number]) [address] [place] [address] 00791 #### HA1C #### [facility] ([id number]) [address] [facility] [address], [address] [place] [address] Lymphocytes (Bld) [#/Vol] 1.8 10*3/uL Normal 1.0-3.5 [facility] Comment on above: Performed By: #### Jaimee CH, 76088-9, CMP #### [facility] ([id number]) [address] [place] [address] 34932 #### HA1C #### [facility] ([id number]) [address], [address] [place] [address] Lymphocytes/100 WBC (Bld) 34.0 % Normal [facility] Comment on above: Performed By: #### Jaimee CH, 40527-5, CMP #### [facility] ([id number]) [address] [place] [address] 35590 #### HA1C #### [facility] ([id number]) [address], [address] [place] [address] MCH (RBC) [Entitic mass] 29.1 pg Normal 27-34 [facility] Comment on above: Performed By: #### C DIMA, 19299-7, CMP #### [facility] ([id number]) [address] [place] [address] 08217 #### ARUN #### [facility] ([id number]) [address] [place] [address] MCHC (RBC) [Mass/Vol] 34.3 g/dL Normal 32-36 [facility] Comment on above: Performed By: #### C DIMA, 69852-6, CMP #### [facility] ([id number]) [address] [place] [address] 79221 #### ARUN #### [facility] ([id number]) [address], [address] [place] [address] MCV (RBC) [Entitic vol] 85 fL Normal 80-100 [facility] Comment on above: Performed By: #### Jaimee CH, 45034-1, CMP #### [facility] ([id number]) [address] [place] [address] 77203 #### ARUN #### [facility] ([id number]) [address], [address] [place] [address] Monocytes (Bld) [#/Vol] 0.3 10*3/uL Normal 0-0.9 [facility] Comment on above: Performed By: #### Jaimee CH, 66541-1, CMP #### [facility] ([id number]) [address] [place] [address] 14040 #### HALulu #### [facility] ([id number]) [address] [place] [address] Monocytes/100 WBC (Bld) 5.9 % Normal [facility] Comment on above: Performed By: #### Jaimee CH, 48127-6, CMP #### [facility] ([id number]) [address] [place] [address] 03964 #### HA1C #### [facility] ([id number]) [address] [facility] [address], [address] [place] [address] Neutrophils/100 WBC (Bld) 57.1 % Normal [facility] Comment on above: Performed By: #### Jaimee CH, 51838-3, CMP #### [facility] ([id number]) [address] [place] [address] 67258 #### HA1C #### [facility] ([id number]) [address] [facility] [facility] [address] [place] [address] Platelet mean volume (Bld) [Entitic vol] 8.3 fL Normal 7-12 [facility] Comment on above: Performed By: #### Jaimee CH, 43005-4, CMP #### [facility] ([id number]) [address] [place] [address] 78777 #### HALulu #### [facility] ([id number]) [address] [facility], [address] [address] Platelets (Bld) [#/Vol] 321 10*3/uL Normal 150-450 [facility] Comment on above: Performed By: #### Jaimee CH, 00484-3, CMP #### [facility] ([id number]) [address] [place] [address] 64759 #### HA1C #### [facility] ([id number]) [address] [facility] [facility] [address] [place] [address] RBC COUNT 3.81 X10E12/L Normal 3.80-5.20 [facility] Comment on above: Performed By: #### Jaimee CH, 91663-5, CMP #### [facility] ([id number]) [address] [place] [address] 55957 #### HA1C #### [facility] ([id number]) [address] [facility], [address] [place] [address] WBC (Bld) [#/Vol] 5.2 10*3/uL Normal 4.0-11.0 [facility] Comment on above: Performed By: #### C BCA, 73530-2, CMP #### [facility] ([id number]) [address] [place] [address] 49415 #### HA1C #### [facility] ([id number]) [address] [place] [address], [address] [place] [address] COMPREHENSIVE METABOLIC PANE [facility] 08-05-2024 Albumin [Mass/Vol] 3.4 g/dL Normal 3.2-5.3 [facility] Comment on above: Performed By: #### C BCA, 83000-2, CMP #### [facility] ([id number]) [address] [place] [address] 98755 #### HA1C #### [facility] ([id number]) [address] [place] [address], [address] [place] [address] ALP [Catalytic activity/Vol] 88 U/L Normal 39-130 [facility] Comment on above: Performed By: #### C BCA, 80701-6, CMP #### [facility] ([id number]) [address] [place] [address] 00185 #### HA1C #### [facility] ([id number]) [address] [place] [address], [address] [place] [address] ALT [Catalytic activity/Vol] 19 U/L Normal 0-31 [facility] Comment on above: Performed By: #### C BCA, 90611-7, CMP #### [facility] ([id number]) [address] [place] [address] 52322 #### HA1C #### [facility] ([id number]) [address] [place] [address] Anion gap [Moles/Vol] 8 mmol/L Normal 5-15 [facility] Comment on above: Performed By: #### C DIMA, 17441-5, CMP #### [facility] ([id number]) [address] [place] [address] 22415 #### HA1C #### [facility] ([id number]) [address] [place] [address] AST [Catalytic activity/Vol] 17 U/L Normal 0-41 [facility] Comment on above: Performed By: #### C IDMA, 91498-0, CMP #### [facility] ([id number]) [address] [place] [address] 15022 #### HALulu #### [facility] ([id number]) [address] [place] [address] Bilirubin [Mass/Vol] 0.5 mg/dL Normal 0.3-1.2 [facility] Comment on above: Performed By: #### Jaimee CH, 20117-9, CMP #### [facility] ([id number]) [address] [place] [address] 99621 #### HA1C #### [facility] ([id number]) [address] [place] [address] Calcium [Mass/Vol] 9.0 mg/dL Normal 8.5-10.5 [facility] Comment on above: Performed By: #### Jaimee CH, 26243-7, CMP #### [facility] ([id number]) [address] [place] [address] 96016 #### HA1C #### [facility] ([id number]) [address] [place] [address] Chloride [Moles/Vol] 104 mmol/L Normal 98-109 [facility] Comment on above: Performed By: #### C DIMA, 80630-9, CMP #### [facility] ([id number]) [address] [place] [address] 57886 #### HA1C #### [facility] ([id number]) [address] [facility], [address] [place] [address] CO2 [Moles/Vol] 20 mmol/L Low 22-32 [facility] Comment on above: Performed By: #### C DIMA, 03921-1, CMP #### [facility] ([id number]) [address] [place] [address] 77201 #### HA1C #### [facility] ([id number]) [address] [facility], [address] [place] [address] Creatinine [Mass/Vol] 1.64 mg/dL High 0.40-1.00 [facility] Comment on above: Result Comment: METH OD TRACEABLE TO IDMS STANDARD Performed By: #### Jaimee CH, 80395-6, CMP #### [facility] ([id number]) [address] [place] [address] 50838 #### HA1C #### [facility] ([id number]) [address] [facility], [address] [place] [address] GFR/1.73 sq M.predicted among non-blacks MDRD (S/P/Bld) [Vol rate/Area] 37 mL/min/{1.73_m2} Low >59 [facility] Comment on above: Result Comment: Reported eGFR is based on the CKD-EPI 2020 equation that does not use a race coefficient. Performed By: #### Jaimee CH, 83739-6, CMP #### [facility] ([id number]) [address] [place] [address] 58218 #### HA1C #### [facility] ([id number]) [address], [address] [place] [address] Glucose [Mass/Vol] 241 mg/dL High 65-99 [facility] Comment on above: Performed By: #### C DIMA, 80813-6, CMP #### [facility] ([id number]) [address] [place] [address] 11809 #### HA1C #### [facility] ([id number]) [address], [address] [place] [address] Potassium [Moles/Vol] 4.6 mmol/L Normal 3.5-5.0 [facility] Comment on above: Performed By: #### C DIMA, 30953-8, CMP #### [facility] ([id number]) [address] [place] [address] 42700 #### HA1C #### [facility] ([id number]) [address], [address] [place] [address] Protein [Mass/Vol] 6.7 g/dL Normal 6.0-8.0 [facility] Comment on above: Performed By: #### C DIMA, 79570-9, CMP #### [facility] ([id number]) [address] [place] [address] 81853 #### HA1C #### [facility] ([id number]) [address], [address] [place] [address] Sodium [Moles/Vol] 132 mmol/L Low 134-146 [facility] Comment on above: Performed By: #### C DIMA, 93406-3, CMP #### [facility] ([id number]) [address] [place] [address] 69007 #### HA1C #### [facility] ([id number]) [address] [facility], [address] [place] [address] Urea nitrogen [Mass/Vol] 33 mg/dL High 5-23 [facility] Comment on above: Performed By: #### Jaimee CH, 73455-3, CMP #### [facility] ([id number]) [address] [place] [address] 58037 #### HA1C #### [facility] ([id number]) [address] [facility], [address] [place] [address] Glucose Glucometer (BldC) [M ass/Vol]on 08-05-2024 Glucose [Mass/Vol] 372 mg/dL High 65-99 [facility] Glucose [Mass/Vol] 362 mg/dL High 65-99 [facility] Glucose [Mass/Vol] 376 mg/dL High 65-99 [facility] Glucose [Mass/Vol] 398 mg/dL High 65-99 [facility] HEMOGLOBINon 08-05-2024 Hemoglobin (Bld) [Mass/Vol] 11.6 g/dL Low 11.7-15.5 [facility] Comment on above: Performed By: #### Jaimee CH, 91712-2, CMP #### [facility] ([id number]) [address] [place] [address] 46668 #### HA1C #### [facility] ([id number]) [address] [facility], [address] [place] [address] Heparin unfractionated Chrom ogenic method Qn (PPP)on 08-05-2024 ANTI XA UFH 0.44 IU/mL Normal 0.30-0.70 [facility] Comment on above: Result Comment: Opti mal time for testing is 6 hrs post dosage This test is specific for monitoring patients on UFH, and is not recommended for use with other Anti-Xa medications. Performed By: #### Jaimee CH, 92180-3, CMP #### [facility] ([id number]) [address] [place] [address] 86905 #### HA1C #### [facility] ([id number]) [address] [facility], [address] [place] [address] MAGNESIUMon 08-05-2024 Magnesium [Mass/Vol] 2.1 mg/dL Normal 1.8-2.6 [facility] Comment on above: Performed By: #### Jaimee CH, 73120-6, CMP #### [facility] ([id number]) [address] [place] [address] 73033 #### HA1C #### [facility] ([id number]) [address] [facility], [address] [place] [address] MR BRAIN WO CONTon MR BRAIN WO CONT MR BRAIN WO CONT STUDY: MRI brain without contrast CLINICAL HISTORY: Neuro deficit, acute, stroke suspected COMPARISON: CT head 08/03/2024. TECHNIQUE: Routine multiplanar multisequence MR imaging of the brain was performed without contrast. FINDINGS: Tiny areas of ischemic change paramedian posterior right cerebellar hemisphere. No large territorial region of acute ischemia, no supratentorial ischemia. Sequelae nonacute lacunar infarcts involving basal ganglia, new since 2021. No ventricular outflow obstruction. No acute intracranial hemorrhage. Minimal white matter FLAIR hyperintensities. Mild global parenchymal volume loss with scattered enlarged perivascular spaces. Diminutive vertebrobasilar circulation. Unremarkable temporal bone structures, visualized suprahyoid neck, scalp soft tissues. Mucosal Left ethmoid air cells IMPRESSION: 1. Small area of acute ischemia paramedian right cerebellar hemisphere. 2. Diminutive vertebrobasilar circulation. Sequelae nonacute lacunar infarcts within the basal ganglia, new since 2021.. Finalized by Frederick Pelayo MD on 08/05/2024 10:34 AM Normal [facility] PLATELET COUNT AND MPVon Platelet mean volume (Bld) [Entitic vol] 8.3 fL Normal 7-12 [facility] Comment on above: Performed By: #### [place], [address]-7, CMP #### [facility] ([id number]) [address] [place] [address] #### HA1C #### [facility] ([id number]) [address] [facility], [address] [place] [address] Platelets (Bld) [#/Vol] 335 10*3/uL Normal 150-450 [facility] Comment on above: Performed By: #### [place], [address]-2, CMP #### [facility] ([id number]) [address] [place] [id number] #### HA1C #### [facility] ([id number]) [address] [place] [id number] PROTIME AND INRon 08-05-2024 INR Coag (PPP) [Relative time] 1.0 {INR} Normal 0.8-1.1 [facility] Comment on above: Performed By: #### [place]imee CH, 26647-3, CMP #### [facility] ([id number]) [address] [place] [id number] #### HA1C #### [facility] ([id number]) [address] [facility], [address] [address] PT Coag (PPP) [Time] 11.7 s Normal 9.8-13.2 [facility] Comment on above: Result Comment: NEW REFERENCE RANGE Performed By: #### Jaimee CH, 13418-4, CMP #### [facility] ([id number]) [address] [place] [address] 33343 #### HA1C #### [facility] ([id number]) [address] [facility], [address] [place] [address] aPTT Coag (PPP) [Time]on aPTT Coag (Bld) [Time] 81 s High 26-37 [facility] Comment on above: Result Comment: NEW REFERENCE RANGE Performed By: #### Jaimee CH, 18267-5, CMP #### [facility] ([id number]) [address] [place] [address] 83530 #### HA1C #### [facility] ([id number]) [address], [address] [place] [address] CBC AND AUTO DIFFon 08-04-20 24 ABSOLUTE BASOPHIL 0.0 X10E9/L Normal 0.0-0.2 [facility] Comment on above: Performed By: #### C BCA, CMP, 85715-1 ####[facility] ([id number])[address] [place] [address] 00506#### 48387-1, 2088-11 ####[facility] ([id number])[address], [address], [place] [address] ABSOLUTE NEUTROPHIL 2.8 X10E9/L Normal 1.5-6.6 [facility] Comment on above: Performed By: #### C BCA, CMP, 26054-7 ####[facility] ([id number])[address] [place] [address] 17160#### 92888-0, 2088-11 ####[facility] ([id number])[address], [address], [place] [address] Basophils/100 WBC (Bld) 0.4 % Normal [facility] Comment on above: Performed By: #### C BCA, CMP, ####[facility] ([id number])[address] [place] [address] 31912#### 44430-9, 2088-11 ####[facility] ([id number])[address], [address], [place] [address] Eosinophils (Bld) [#/Vol] 0.2 10*3/uL Normal 0.0-0.4 [facility] Comment on above: Performed By: #### C BCA, CMP, 20487-0 ####[facility] ([id number])[address] [place] [address] 74851#### 16457-7, 2088-11 ####[facility] ([id number])[address], [address], [place] [address] Eosinophils/100 WBC (Bld) 2.8 % Normal [facility] Comment on above: Performed By: #### C BCA, CMP, ####[facility] ([id number])[address] [place] [address] 45103#### 50227-6, 2088-11 ####[facility] ([id number])[address], [address], [place] [address] Erythrocyte distribution width (RBC) [Ratio] 15.1 % High 11.5-15.0 [facility] Comment on above: Performed By: #### C BCA, CMP, ####[facility] ([id number])[address] [place] [address] 14827#### 68478-7, 2088-11 ####[facility] ([id number])[address], [address], [place] [address] Hematocrit (Bld) [Volume fraction] 33.6 % Low 35-47 [facility] Comment on above: Performed By: #### C BCA, CMP, ####[facility] ([id number])[address] [place] [address] 35224#### 57257-3, 2088-11 ####[facility] ([id number])[address], [address] [place] [address] Hemoglobin (Bld) [Mass/Vol] 11.3 g/dL Low 11.7-15.5 [facility] Comment on above: Performed By: #### C BCA, CMP, 33322-8 ####[facility] ([id number])[address] [place] [address] 30230#### 93005-7, 2088-11 ####[facility] ([id number])[address], [address], [place] [address] Lymphocytes (Bld) [#/Vol] 2.3 10*3/uL Normal 1.0-3.5 [facility] Comment on above: Performed By: #### C BCA, CMP, ####[facility] ([id number])[address] [place] [address] 23670#### 71564-7, 2088-11 ####[facility] ([id number])[address], [address] [place] [address] Lymphocytes/100 WBC (Bld) 41.0 % Normal [facility] Comment on above: Performed By: #### Jaimee BCA, CMP, ####[facility] ([id number])[address] [place] [address] 37820#### 86775-3, 2088-11 ####[facility] ([id number])[address], [address] [place] [address] MCH (RBC) [Entitic mass] 28.4 pg Normal 27-34 [facility] Comment on above: Performed By: #### C BCA, CMP, ####[facility] ([id number])[address] [place] [address] 70458#### 01430-9, 2088-11 ####[facility] ([id number])[address], [address], [place] [address] MCHC (RBC) [Mass/Vol] 33.6 g/dL Normal 32-36 [facility] Comment on above: Performed By: #### C BCA, CMP, ####[facility] ([id number])[address] [place] [address] 46871#### 28618-2, 2088-11 ####[facility] ([id number])[address], [address], [place] [address] MCV (RBC) [Entitic vol] 85 fL Normal 80-100 [facility] Comment on above: Performed By: #### C BCA, CMP, ####[facility] ([id number])[address] [place] [address] 08945#### 26513-6, 2088-11 ####[facility] ([id number])[address], [address] [place] [address] Monocytes (Bld) [#/Vol] 0.4 10*3/uL Normal 0-0.9 [facility] Comment on above: Performed By: #### Jaimee BCA, CMP, ####[facility] ([id number])[address] [place] [address] 87006#### 26193-4, 2088-11 ####[facility] ([id number])[address], [address] [place] [address] Monocytes/100 WBC (Bld) 6.6 % Normal [facility] Comment on above: Performed By: #### C BCA, CMP, ####[facility] ([id number])[address] [place] [address] 46832#### 19940-1, 2088-11 ####[facility] ([id number])[address], [address], [place] [address] Neutrophils/100 WBC (Bld) 49.2 % Normal [facility] Comment on above: Performed By: #### C BCA, CMP, 61873-3 ####[facility] ([id number])[address] [place] [address] 78220#### 95315-9, 2088-11 ####[facility] ([id number])[address], [place] [address] Platelet mean volume (Bld) [Entitic vol] 8.3 fL Normal 7-12 [facility] Comment on above: Performed By: #### C BCA, CMP, 93147-7 ####[facility] ([id number])[address] [place] [address] 95339#### 72567-7, 2088-11 ####[facility] ([id number])[address], [address], [place] [address] Platelets (Bld) [#/Vol] 311 10*3/uL Normal 150-450 [facility] Comment on above: Performed By: #### Jaimee BCA, CMP, 85312-3 ####[facility] ([id number])[address] [place] [address] 96021#### 38879-4, 2088-11 ####[facility] ([id number])[address], [address], [place] [address] RBC COUNT 3.97 X10E12/L Normal 3.80-5.20 [facility] Comment on above: Performed By: #### C BCA, CMP, 22297-2 ####[facility] ([id number])[address] [place] [address] 50129#### 22029-5, 2088-11 ####[facility] ([id number])[address], [address], [place] [address] WBC (Bld) [#/Vol] 5.7 10*3/uL Normal 4.0-11.0 [facility] Comment on above: Performed By: #### C BCA, CMP, ####[facility] ([id number])[address] [place] [address] 97236#### 87329-8, 2088-11 ####[facility] ([id number])[address], [address] [place] [address] COMPREHENSIVE METABOLIC PANE Chay 08-04-2024 Albumin [Mass/Vol] 3.5 g/dL Normal 3.2-5.3 [facility] Comment on above: Performed By: #### C BCA, CMP, ####[facility] ([id number])[address] [place] [address] 50282#### 30907-9, 2088-11 ####[facility] ([id number])[address], [address] [place] [address] 22570 ALP [Catalytic activity/Vol] 85 U/L Normal 39-130 [facility] Comment on above: Performed By: #### C BCA, CMP, ####[facility] ([id number])[address] [place] [address] 59666#### 20967-3, 2088-11 ####[facility] ([id number])[address], [address] [place] [address] 18040 ALT [Catalytic activity/Vol] 15 U/L Normal 0-31 [facility] Comment on above: Performed By: #### C BCA, CMP, ####[facility] ([id number])[address] [place] [address] 85027#### 20423-2, 2088-11 ####[facility] ([id number])[address], [address], [place] [address] Anion gap [Moles/Vol] 9 mmol/L Normal 5-15 [facility] Comment on above: Performed By: #### C BCA, CMP, ####[facility] ([id number])[address] [place] [address] 33257#### 91920-3, 2088-11 ####[facility] ([id number])[address], [address], [place] [address] AST [Catalytic activity/Vol] 13 U/L Normal 0-41 [facility] Comment on above: Performed By: #### C BCA, CMP, ####[facility] ([id number])[address] [place] [address] 88856#### 61483-2, 2088-11 ####[facility] ([id number])[address] [facility], [address], [place] [address] Bilirubin [Mass/Vol] 0.5 mg/dL Normal 0.3-1.2 [facility] Comment on above: Performed By: #### C BCA, CMP, ####[facility] ([id number])[address] [place] [address] 33579#### 93454-1, 2088-11 ####[facility] ([id number])[address] [facility], [address], [place] [address] Calcium [Mass/Vol] 9.0 mg/dL Normal 8.5-10.5 [facility] Comment on above: Performed By: #### C BCA, CMP, ####[facility] ([id number])[address] [place] [address] 91845#### 63353-6, 2088-11 ####[facility] ([id number])[address], [address], [place] [address] Chloride [Moles/Vol] 103 mmol/L Normal 98-109 [facility] Comment on above: Performed By: #### C GERMANIA CH, ####[facility] ([id number])[address] [place] [address] 18888#### 98359-5, 2088-11 ####[facility] ([id number])[address] [facility], [address] [address] CO2 [Moles/Vol] 21 mmol/L Low 22-32 [facility] Comment on above: Performed By: #### C GERMANIA CH, ####[facility] ([id number])[address] [place] [address] 71269#### 93214-5, 2088-11 ####[facility] ([id number])[address] [facility], [address] [address] Creatinine [Mass/Vol] 1.85 mg/dL High 0.40-1.00 [facility] Comment on above: Result Comment: METH OD TRACEABLE TO IDMS STANDARD Performed By: #### C GERMANIA CH, ####[facility] ([id number])[address] [place] [address] 61136#### 22792-7, 2088-11 ####[facility] ([id number])[address] [address] GFR/1.73 sq M.predicted among non-blacks MDRD (S/P/Bld) [Vol rate/Area] 32 mL/min/{1.73_m2} Low >59 [facility] Comment on above: Result Comment: Reported eGFR is based on the CKD-EPI 2020 equation that does not use a race coefficient. Performed By: #### C DIMA CMP, ####[facility] ([id number])[address] [place] [address] 70182#### 19805-3, 2088-11 ####[facility] ([id number])[address] [place] [address], [address] [place] [address] Glucose [Mass/Vol] 185 mg/dL High 65-99 [facility] Comment on above: Performed By: #### C DIMA, CMP, 88850-5 ####[facility] ([id number])[address] [place] [address] 50247#### 37052-2, 2088-11 ####[facility] ([id number])[address] [place] [address], [address] [place] [address] Potassium [Moles/Vol] 4.1 mmol/L Normal 3.5-5.0 [facility] Comment on above: Performed By: #### Jaimee BCA, CMP, ####[facility] ([id number])[address] [place] [address] 76369#### 44057-5, 2088-11 ####[facility] ([id number])[address] [place] [address], [address] [address] Protein [Mass/Vol] 6.7 g/dL Normal 6.0-8.0 [facility] Comment on above: Performed By: #### C DIMA, CMP, ####[facility] ([id number])[address] [place] [address] 46911#### 26401-3, 2088-11 ####[facility] ([id number])[address] [place] [address], [address] [place] [address] Sodium [Moles/Vol] 133 mmol/L Low 134-146 [facility] Comment on above: Performed By: #### C BCA, CMP, ####[facility] ([id number])[address] [place] [address] 45975#### 41211-9, 2088-11 ####[facility] ([id number])[address] [place] [address], [address] [address] Urea nitrogen [Mass/Vol] 39 mg/dL High 5-23 [facility] Comment on above: Performed By: #### Jaimee CH, [facility], 53486-4 ####[facility] ([id number])[address] [place] [address] 16111#### 02376-0, 2088-11 ####[facility] ([id number])[address] [place] [address], [address] [address] DIRECT LDLon 08-04-2024 Cholesterol in LDL [Mass/Vol] 105 mg/dL Normal <130 [facility] Comment on above: Result Comment: LDL <100 mg/dL - Desirable LDL 130-159 mg/dL - Borderline High Risk LDL >160 mg/dL - High Risk Performed By: #### C DIMA [facility], 38146-0 ####[facility] ([id number])[address] [place] [address] 55906#### 63753-9, 2088-11 ####[facility] ([id number])[address] [place] [address], [address] [address] Glucose Glucometer (BldC) [M ass/Vol]on 08-04-2024 Glucose [Mass/Vol] 221 mg/dL High 65-99 [facility] Glucose [Mass/Vol] 247 mg/dL High 65-99 [facility] Glucose [Mass/Vol] 253 mg/dL High 65-99 [facility] Lipid 1996 panelon Cholesterol [Mass/Vol] 240 mg/dL High 150-200 [facility] Comment on above: Performed By: #### C DIMA, CMP, 56498-6 ####[facility] ([id number])[address] [place] [address] 70258#### 15981-3, 2088-11 ####[facility] ([id number])[address], [address] [place] [address] Cholesterol in HDL [Mass/Vol] 38 mg/dL Low >39 [facility] Comment on above: Result Comment: HDL <40 mg/dL - High Risk HDL > or = 40mg/dL- Desirable HDL >60 mg/dL - Negative Risk Performed By: #### C DIMA, CMP, ####[facility] ([id number])[address] [place] [address] 27160#### 05129-8, 2088-11 ####[facility] ([id number])[address] [facility], [address] [place] [address] Cholesterol in VLDL [Mass/Vol] 156 mg/dL High 0-30 [facility] Comment on above: Performed By: #### C DIMA, CMP, ####[facility] ([id number])[address] [place] [address] 75552#### 57355-3, 2088-11 ####[facility] ([id number])[address] [facility], [address] [place] [address] CHOLESTEROL:HDL 6.3 High 1.0-5.0 [facility] Comment on above: Performed By: #### Jaimee BCA, CMP, ####[facility] ([id number])[address] [place] [address] 08202#### 61337-8, 2088-11 ####[facility] ([id number])[address] [facility], [address] [place] [address] LDL (CALC) RESULT NOT REPORTED DUE TO HIGH TRIGLYCERIDE Normal <130 [facility] Comment on above: Performed By: #### C BCA, CMP, 92182-7 ####[facility] ([id number])[address] [place] [address] 61569#### 30549-0, 2088-11 ####[facility] ([id number])[address] [facility], [address], [place] [address] Triglyceride [Mass/Vol] 782 mg/dL High 27-150 [facility] Comment on above: Performed By: #### C DIMA, CMP, ####[facility] ([id number])[address] [place] [address] 38838#### 34872-1, 2088-11 ####[facility] ([id number])[address] [facility], [address] [place] [address] MAGNESIUMon 08-04-2024 Magnesium [Mass/Vol] 2.3 mg/dL Normal 1.8-2.6 [facility] Comment on above: Performed By: #### C DIMA, 82006-7, CMP #### [facility] ([id number]) [address] [place] [address] 83581 #### HA1C #### [facility] ([id number]) [address] [place] [address], [address] [place] [address] Magnesium [Mass/Vol] 1.6 mg/dL Low 1.8-2.6 [facility] Comment on above: Performed By: #### C BCA, CMP, ####[facility] ([id number])[address] [place] [address] 03968#### 58439-2, 2088-11 ####[facility] ([id number])[address] [facility], [address], [place] [address] CBC AND AUTO DIFFon 08-03-20 24 ABSOLUTE BASOPHIL 0.1 X10E9/L Normal 0.0-0.2 [facility] Comment on above: Performed By: #### Jaimee CH, 55256-5, CMP #### [facility] ([id number]) [address] [place] [address] 42512 #### HA1C #### [facility] ([id number]) [address] [facility], [address] [place] [address] ABSOLUTE NEUTROPHIL 4.2 X10E9/L Normal 1.5-6.6 [facility] Comment on above: Performed By: #### Jaimee CH, 18412-8, CMP #### [facility] ([id number]) [address] [place] [address] 61061 #### HA1C #### [facility] ([id number]) [address] [facility], [address] [place] [address] Basophils/100 WBC (Bld) 0.7 % Normal [facility] Comment on above: Performed By: #### Jaimee CH, 54108-7, CMP #### [facility] ([id number]) [address] [place] [address] 86966 #### HA1C #### [facility] ([id number]) [address], [address] [place] [address] Eosinophils (Bld) [#/Vol] 0.1 10*3/uL Normal 0.0-0.4 [facility] Comment on above: Performed By: #### Jaimee CH, 60174-5, CMP #### [facility] ([id number]) [address] [place] [address] 93270 #### HA1C #### [facility] ([id number]) [address], [address] [place] [address] Eosinophils/100 WBC (Bld) 1.9 % Normal [facility] Comment on above: Performed By: #### Jaimee CH, 21994-8, CMP #### [facility] ([id number]) [address] [place] [address] 29737 #### HA1C #### [facility] ([id number]) [address], [address] [place] [address] Erythrocyte distribution width (RBC) [Ratio] 15.1 % High 11.5-15.0 [facility] Comment on above: Performed By: #### Jaimee CH, 13663-4, CMP #### [facility] ([id number]) [address] [place] [address] 49928 #### HALulu #### [facility] ([id number]) [address], [address] [place] [address] Hematocrit (Bld) [Volume fraction] 35.2 % Normal 35-47 [facility] Comment on above: Performed By: #### Jaimee CH, 45179-7, CMP #### [facility] ([id number]) [address] [place] [address] 99200 #### HA1C #### [facility] ([id number]) [address] [place] [address] Hemoglobin (Bld) [Mass/Vol] 11.9 g/dL Normal 11.7-15.5 [facility] Comment on above: Performed By: #### Jaimee CH, 13148-3, CMP #### [facility] ([id number]) [address] [place] [address] 79458 #### HA1C #### [facility] ([id number]) [address] [place] [address] Lymphocytes (Bld) [#/Vol] 2.6 10*3/uL Normal 1.0-3.5 [facility] Comment on above: Performed By: #### [place], [address]-2, CMP #### [facility] ([id number]) [address] [place] [address] 616[address] #### HA1C #### [facility] ([id number]) [address], [address] [place] [address] Lymphocytes/100 WBC (Bld) 34.7 % Normal [facility] Comment on above: Performed By: #### [place] CH, 19082-9, CMP #### [facility] ([id number]) [address] [place] [address] 990[address] #### HA1C #### [facility] ([id number]) [address], [address] [place] [address] MCH (RBC) [Entitic mass] 28.8 pg Normal 27-34 [facility] Comment on above: Performed By: #### [place] CH, 38[address]-6, CMP #### [facility] ([id number]) [address] [place] [address] #### HA1C #### [facility] ([id number]) [address] [place] [address] MCHC (RBC) [Mass/Vol] 33.8 g/dL Normal 32-36 [facility] Comment on above: Performed By: #### [place] CH, 02517-1, CMP #### [facility] ([id number]) [address] [place] [address] #### HA1C #### [facility] ([id number]) [address], [address] [place] [address] MCV (RBC) [Entitic vol] 85 fL Normal 80-100 [facility] Comment on above: Performed By: #### [place] CH, 10129-1, CMP #### [facility] ([id number]) [address] [place] [address] #### HA1C #### [facility] ([id number]) [address] [place] [address] Monocytes (Bld) [#/Vol] 0.5 10*3/uL Normal 0-0.9 [facility] Comment on above: Performed By: #### [place] CH, 87431-4, CMP #### [facility] ([id number]) [address] [place] [address] #### HALulu #### [facility] ([id number]) [address], [address] [place] [address] Monocytes/100 WBC (Bld) 6.3 % Normal [facility] Comment on above: Performed By: #### [place] CH, 34[address]-9, CMP #### [facility] ([id number]) [address] [place] [address] 00948 #### HA1C #### [facility] ([id number]) [address] [place] [address] Neutrophils/100 WBC (Bld) 56.4 % Normal [facility] Comment on above: Performed By: #### [place]imee CH, 11588-2, CMP #### [facility] ([id number]) [address] [place] [address] 316[address] #### HA1C #### [facility] ([id number]) [address] [place] [address] Platelet mean volume (Bld) [Entitic vol] 8.4 fL Normal 7-12 [facility] Comment on above: Performed By: #### [place], 47743-7, CMP #### [facility] ([id number]) [address] [place] [address] 006[address] #### HA1C #### [facility] ([id number]) [address] [place] [address], [address] [place] [address] Platelets (Bld) [#/Vol] 344 10*3/uL Normal 150-450 [facility] Comment on above: Performed By: #### Jaimee CH, 33889-2, CMP #### [facility] ([id number]) [address] [place] [address] 99824 #### ARUN #### [facility] ([id number]) [address] [place] [address], [address] [address] RBC COUNT 4.13 X10E12/L Normal 3.80-5.20 [facility] Comment on above: Performed By: #### Jaimee CH, 00715-5, CMP #### [facility] ([id number]) [address] [place] [address] 35435 #### HALulu #### [facility] ([id number]) [address] [place] [address], [address] [address] WBC (Bld) [#/Vol] 7.5 10*3/uL Normal 4.0-11.0 [facility] Comment on above: Performed By: #### Jaimee CH, 56375-5, CMP #### [facility] ([id number]) [address] [place] [address] 23934 #### HALulu #### [facility] ([id number]) [address] [place] [address], [address] [place] [address] COMPREHENSIVE METABOLIC PANE Chay 08-03-2024 Albumin [Mass/Vol] 3.7 g/dL Normal 3.2-5.3 [facility] Comment on above: Performed By: #### Jaimee CH, 48922-1, CMP #### [facility] ([id number]) [address] [place] [address] 56355 #### HA1C #### [facility] ([id number]) [address], [address] [place] [address] ALP [Catalytic activity/Vol] 96 U/L Normal 39-130 [facility] Comment on above: Performed By: #### Jaimee CH, 31179-7, CMP #### [facility] ([id number]) [address] [place] [address] 16960 #### HA1C #### [facility] ([id number]) [address], [address] [place] [address] ALT [Catalytic activity/Vol] 17 U/L Normal 0-31 [facility] Comment on above: Performed By: #### C DIMA, 06885-2, CMP #### [facility] ([id number]) [address] [place] [address] 62319 #### HALulu #### [facility] ([id number]) [address] [facility], [address] [place] [address] Anion gap [Moles/Vol] 11 mmol/L Normal 5-15 [facility] Comment on above: Performed By: #### C DIMA, 52756-9, CMP #### [facility] ([id number]) [address] [place] [address] 32503 #### HA1C #### [facility] ([id number]) [address], [address] [place] [address] AST [Catalytic activity/Vol] 14 U/L Normal 0-41 [facility] Comment on above: Performed By: #### C BCA, 12543-0, CMP #### [facility] ([id number]) [address] [place] [address] 04444 #### HA1C #### [facility] ([id number]) [address] [place] [address] Bilirubin [Mass/Vol] 0.6 mg/dL Normal 0.3-1.2 [facility] Comment on above: Performed By: #### C DIMA, 23706-6, CMP #### [facility] ([id number]) [address] [place] [address] 29610 #### HA1C #### [facility] ([id number]) [address] [place] [address] Calcium [Mass/Vol] 9.1 mg/dL Normal 8.5-10.5 [facility] Comment on above: Performed By: #### C DIMA, 36504-1, CMP #### [facility] ([id number]) [address] [place] [address] 01648 #### HA1C #### [facility] ([id number]) [address] [place] [address] Chloride [Moles/Vol] 99 mmol/L Normal 98-109 [facility] Comment on above: Performed By: #### C DIMA, 56117-6, CMP #### [facility] ([id number]) [address] [place] [address] 50275 #### HA1C #### [facility] ([id number]) [address] [place] [address] CO2 [Moles/Vol] 20 mmol/L Low 22-32 [facility] Comment on above: Performed By: #### C DIMA, 46614-7, CMP #### [facility] ([id number]) [address] [place] [address] 90386 #### HA1C #### [facility] ([id number]) [address] [place] [address] Creatinine [Mass/Vol] 2.19 mg/dL High 0.40-1.00 [facility] Comment on above: Result Comment: METH OD TRACEABLE TO IDMS STANDARD Performed By: #### C DIMA, 71920-8, CMP #### [facility] ([id number]) [address] [place] [address] 40489 #### HA1C #### [facility] ([id number]) [address], [address] [place] [address] GFR/1.73 sq M.predicted among non-blacks MDRD (S/P/Bld) [Vol rate/Area] 26 mL/min/{1.73_m2} Low >59 [facility] Comment on above: Result Comment: Reported eGFR is based on the CKD-EPI 2020 equation that does not use a race coefficient. Performed By: #### C DIMA, 97226-8, CMP #### [facility] ([id number]) [address] [place] [address] 89788 #### HA1C #### [facility] ([id number]) [address], [address] [address] Glucose [Mass/Vol] 402 mg/dL Critically high 65-99 P [facility] Comment on above: Performed By: #### C DIMA, 68365-7, CMP #### [facility] ([id number]) [address] [place] [address] 32207 #### HA1C #### [facility] ([id number]) [address], [facility] [address] [place] [address] Potassium [Moles/Vol] 4.4 mmol/L Normal 3.5-5.0 [facility] Comment on above: Performed By: #### Jaimee CH, 45931-0, CMP #### [facility] ([id number]) [address] [place] [address] 85693 #### HA1C #### [facility] ([id number]) [address], [address] [place] [address] Protein [Mass/Vol] 7.7 g/dL Normal 6.0-8.0 [facility] Comment on above: Performed By: #### C BCA, 51755-2, CMP #### [facility] ([id number]) [address] [place] [address] 83068 #### HA1C #### [facility] ([id number]) [address] [facility], [address] [place] [address] Sodium [Moles/Vol] 130 mmol/L Low 134-146 [facility] Comment on above: Performed By: #### C BCA, 64309-9, CMP #### [facility] ([id number]) [address] [place] [address] 17929 #### HA1C #### [facility] ([id number]) [address] [facility], [address] [place] [address] Urea nitrogen [Mass/Vol] 44 mg/dL High 5-23 [facility] Comment on above: Performed By: #### C BCA, 08459-9, CMP #### [facility] ([id number]) [address] [place] [address] 87354 #### HA1C #### [facility] ([id number]) [address] [address], [address] [place] [address] CT BRAIN WO CONT STROKE ALER Ton 08-03-2024 CT BRAIN WO CONT STROKE ALERT CT BRAIN WO CONT STROKE ALERT CT HEAD WITHOUT CONTRAST HISTORY: Blurry vision, worst headache of life COMPARISON: 12/25/2021 TECHNIQUE: Routine noncontrast CT head. All CT scans at this facility use dose modulation, iterative reconstruction, and/or weight based dosing when appropriate to reduce radiation dose to as low as reasonably achievable. FINDINGS: There is no acute intracranial hemorrhage, mass, mass-effect, or shift of midline structures. There are no abnormal extra-axial fluid collections. Normal williamson matter-white matter differentiation. 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 The brain volume and ventricular size are appropriate for the patient's age and there is no evidence of ventricular outflow obstruction. The basal cisterns are patent. No depressed calvarial fractures. Mucosal thickening left ethmoid air cells. IMPRESSION: No acute intracranial process. Finalized by Fermin Contreras MD on 08/03/2024 5:07 PM Normal [facility] CT CTA CAROTIDon 08-03-[address] CTA CAROTID Examination: CTA carotids Clinical History: Acute neurologic deficit, stroke suspected. Blurred vision, worst headache of life. Procedure: Multidetector CT angiogram performed through the cervical portion of the carotid arteries after intravenous injection of contrast material without complication, including source images and maximum intensity projection 3-D images displayed and reviewed on a PACS workstation by the radiologist. Automatic exposure control (AEC) was utilized. All CT scans at this facility use dose modulation, iterative reconstruction, and/or weight based dosing when appropriate to reduce radiation dose to as low as reasonably achievable. Comparison: 12/25/2021. Findings: Right carotid system: Right common carotid artery origin is patent. There is calcified plaque along the common carotid artery without significant stenosis. There is densely calcified plaque at the proximal right internal carotid artery resulting in 60% stenosis by NASCET criteria. Thereafter the right internal carotid artery appears patent to the skull base. There is severe stenosis origin of the right external carotid artery. Left carotid system: There is a bovine arch. Proximal left common carotid artery is patent. There is calcified and noncalcified plaque along the more distal common carotid artery without significant stenosis. Calcified and noncalcified plaque at the proximal left internal carotid artery resulting in 70-80% stenosis by NASCET criteria. Thereafter the cervical segment left internal carotid artery appears patent to the skull base. Left external carotid artery is patent. There is at least 50% stenosis proximal left subclavian artery. There is extrinsic compression with moderate stenosis involving the left vertebral artery at the level of the C4-C5 level between the foramina transversaria. Thereafter the left vertebral artery is patent to the skull base. Left vertebral artery is dominant. Right vertebral artery is patent to the skull base. Lung bases appear unremarkable. IMPRESSION: 1. There is 60% right internal carotid artery stenosis. 2. There is 70-80% left internal carotid artery stenosis. 3. There is 50% proximal/prevertebral left subclavian artery stenosis. 4. Moderate stenosis of the left vertebral artery due to extrinsic compression from osteophytes at the C4-C5 level. Finalized by Kwame Pack MD on 08/03/2024 5:34 PM Normal [facility] CT CTA HEADon 08-03-[address] CTA HEAD CTA HEAD HISTORY: Blurry vision, worst headache of life COMPARISON: 12/25/2021 TECHNIQUE: CT angiogram performed following intravenous administration of 100 mL Omnipaque 350. Coronal and sagittal and 3-D volume rendered maximum intensity projection images generated and reviewed under concurrent physician supervision. The [place] Symptomatic Carotid Endarterectomy Trial (NASCET) method for calculating the degree of stenosis was utilized for stenosis measurements. Arterial blood flow was measured to assist the stroke clinical team in the diagnosis of large vessel occlusion in patients undergoing screening for acute ischemic stroke using Rapid AI software when clinically indicated. FINDINGS: Please refer to separate report for findings in the neck. Calcified plaque in the intracranial portions of the internal carotid arteries without hemodynamically significant stenosis or occlusion. Bilateral middle cerebral and anterior cerebral arteries are patent. Intracranial portions of the vertebral arteries are patent with associated calcified atherosclerotic plaque. The basilar artery is patent. Bilateral posterior cerebral arteries are patent. No cerebral aneurysm. IMPRESSION: * No large vessel intracranial vascular occlusion or cerebral aneurysm. All CT scans at this facility use dose modulation, iterative reconstruction, and/or weight based dosing when appropriate to reduce radiation dose to as low as reasonably achievable. Finalized by Fermin Contreras MD on 08/03/2024 5:29 PM Normal [facility] Glucose Glucometer (BldC) [M ass/Vol]on 08-03-2024 Glucose [Mass/Vol] 227 mg/dL High 65-99 [facility] Glucose [Mass/Vol] 369 mg/dL High 65-99 [facility] HGB A1C (GLYCO-HGB)on 2023 Glucose [Mass/Vol] 226 mg/dL Normal [facility] Comment on above: Performed By: #### C DIMA, 79307-4, CMP #### [facility] ([id number]) [address] [place] [address] 58867 #### HA1C #### [facility] ([id number]) [address], [address] [place] [address] HbA1c (Bld) [Mass fraction] 9.5 % High 4.4-5.6 [facility] Comment on above: Result Comment: NOTE ADA Guidelines Result HgbA1c Normal : less than 5.7 % Prediabetes : 5.7 % to 6.4 % Diabetes : > 6.4 % Use with caution in patients with abnormal hemoglobin variants as the half-life of red blood cells and in vivo glycation rates are affected. Performed By: #### C DIMA, 59097-4, CMP #### [facility] ([id number]) [address] [place] [address] 95914 #### HA1C #### [facility] ([id number]) [facility], [address] [place] [address] THYROID PROFILEon 08-03-2024 Free T4 [Mass/Vol] 0.81 ng/dL Normal 0.61-1.60 [facility] Comment on above: Performed By: #### 8 9579-7, THYR ####[facility] ([id number])[address] [place] [address] TSH 3.32 uIU/mL Normal 0.49-4.67 [facility] Comment on above: Performed By: #### 8 9579-7, THYR ####[facility] ([id number])[address] [place] [address] Troponin I.cardiac High sens itivity method [Mass/Vol]on 08-03-2024 1 HOUR TROP I, HIGH SENSITIVITY 3 ng/L Normal <16 [facility] Comment on above: Performed By: #### 8 9579-7, THYR #### [facility] ([id number]) [address] [place] [address] TROPONIN I, HIGH SENSITIVITY 4 ng/L Normal <16 [facility] Comment on above: Performed By: #### C BCA, 80041-9, CMP #### [facility] ([id number]) [address] [place] [address] 46313 #### HA1C #### [facility] ([id number]) [address] [place] [address], [address] [place] [address] URINALYSISon 08-03-2024 Bilirubin Ql (U) Negative Normal NEG [facility] Comment on above: Performed By: #### U A ####[facility] ([id number])[address] [place] [address] BLOOD/HGB Negative Normal NEG [facility] Comment on above: Performed By: #### U A ####[facility] ([id number])[address] [place] [address] Color (U) YELLOW Normal YELLOW [facility] Comment on above: Performed By: #### U A ####[facility] ([id number])[address] [place] [address] Glucose Ql (U) 500 mg/dL Abnormal NEG [facility] Comment on above: Performed By: #### U A ####[facility] ([id number])[address] [place] [address] Ketones Ql (U) Negative Normal NEG [facility] Comment on above: Performed By: #### U A ####[facility] ([id number])[address] [place] [address]1422 Leukocyte esterase Test strip Ql (U) Trace Abnormal NEG [facility] Comment on above: Performed By: #### U A ####[facility] ([id number])[address] [place] [address] Nitrite Ql (U) Negative Normal NEG [facility] Comment on above: Performed By: #### U A ####[facility] ([id number])[address] [place] [address] pH (U) 6.0 [pH] Normal 5.0-8.5 [facility] Comment on above: Performed By: #### U A ####[facility] ([id number])[address] [place] [address]6958 Protein Ql (U) Negative Normal NEG [facility] Comment on above: Performed By: #### U A ####[facility] ([id number])[address] [place] [address]116 R.B.CELLS 1 /hpf Normal 0-5 [facility] Comment on above: Performed By: #### U A ####[facility] ([id number])[address] [place] [address]101[address] Specific gravity (U) [Rel density] 1.010 Normal 1.003-1.035 [facility] Comment on above: Performed By: #### U A ####[facility] ([id number])[address] [place] [address] SQUAMOUS EPITHELIUM 3 /hpf Normal 0-5 [facility] Comment on above: Performed By: #### U A ####[facility] ([id number])[address] [place] [address] [place] [address] TURBIDITY CLEAR Normal CLEAR [facility] Comment on above: Performed By: #### U A ####[facility] ([id number])[address] [place] [address] [place] [address] Urobilinogen Qn (U) 0.2 {Juanita'U}/dL Normal <1.1 [facility] Comment on above: Performed By: #### U A ####[facility] ([id number])[address] [place] [address] 34036 W.B.CELLS 4 /hpf Normal 0-5 [facility] Comment on above: Performed By: #### U A ####[facility] ([id number])[address] [place] [address]23 URN MACROSCOPIC NURon 2023 BILIRUBIN LE Negative Normal NEG [facility] Comment on above: Performed By: #### N UM #### [facility] ([id number]) [address] [place] [address] BLOOD/HGB LE Negative Normal NEG [facility] Comment on above: Performed By: #### N UM #### [facility] ([id number]) [address] [place] [address]993 GLUCOSE LE 500 mg/dL Abnormal NEG [facility] Comment on above: Performed By: #### N UM #### [facility] ([id number]) [address] [place] [address] 462[address] KETONES LE Negative Normal NEG [facility] Comment on above: Performed By: #### N UM #### [facility] ([id number]) [address] [place] [address] [place] [address] LEUKOCYTE ESTERASE LE Small Abnormal NEG [facility] Comment on above: Performed By: #### N UM #### [facility] ([id number]) [address] [place] [address]6635 NITRITE LE Negative Normal NEG [facility] Comment on above: Performed By: #### N UM #### [facility] ([id number]) [address] [place] [address] 17754 PH LE 5.5 Normal 5.0-8.5 [facility] Comment on above: Performed By: #### N UM #### [facility] ([id number]) [address] [place] [address]3453 PROTEIN LE Negative Normal NEG [facility] Comment on above: Performed By: #### N UM #### [facility] ([id number]) [address] [place] [address] 81862 SPECIFIC GRAVITY LE 1.010 Normal 1.003-1.035 [facility] Comment on above: Performed By: #### N UM #### [facility] ([id number]) [address] [place] [address] 31523 UROBILINOGEN LE 0.2 eu/dL Normal <1.1 [facility] Comment on above: Performed By: #### N UM #### [facility] ([id number]) [address] [place] [address] 29971 PTH INTACTon 03-11-2023 PTH, Intact 31 pg/mL Normal 15-65 [facility] Comment on above: Performed By: #### U MICRO, ERUR #### [facility] [address] [place] [address] Dr. Delmer Rea FERRITINon 03-10-2023 Ferritin [Mass/Vol] 35.0 ng/mL Normal 8.0-252.0 [facility] Comment on above: Performed By: #### L IPA, DLDL, CON, LIPID, T7, CMP, TSH #### [facility] [address] [address] [address] Delmer Rea HEMOGRAM AND PLATELon 2022 Hematocrit (Bld) [Volume fraction] 35.5 % Critically low 36.0-48.0 [facility] Comment on above: Performed By: #### L IPA, DLDL, CON, LIPID, T7, CMP, TSH #### [facility] [address] [address] [address] Delmer Rea Hemoglobin (Bld) [Mass/Vol] 11.6 g/dL Critically low 12.0-16.0 [facility] Comment on above: Performed By: #### L IPA, DLDL, CON, LIPID, T7, CMP, TSH #### [facility] [address] [place] [address] Dr. Delmer Rea MCH (RBC) [Entitic mass] 27.3 pg Normal 26.7-34.0 [facility] Comment on above: Performed By: #### L IPA, DLDL, CON, LIPID, T7, CMP, TSH #### [facility] [address] [place] [address] Dr. Delmer Rea MCHC (RBC) [Mass/Vol] 32.7 g/dL Normal 29.9-35.2 [facility] Comment on above: Performed By: #### L IPA, DLDL, CON, LIPID, T7, CMP, TSH #### [facility] [address] [place] [address] Dr. Delmer Rea MCV (RBC) [Entitic vol] 83.5 fL Normal 81.0-99.0 [facility] Comment on above: Performed By: #### L IPA, DLDL, CON, LIPID, T7, CMP, TSH #### [facility] [address] [place] [address] Dr. Delmer Rea PLT 273 103/ul Normal 150-450 [facility] Comment on above: Performed By: #### L IPA, DLDL, CON, LIPID, T7, CMP, TSH #### [facility] [address] [place] [address] Dr. Delmer Rea RBC 4.25 106/ul Normal 4.20-5.40 [facility] Comment on above: Performed By: #### L IPA, DLDL, CON, LIPID, T7, CMP, TSH #### [facility] [address] [place] [address] Dr. Delmer Rea WBC 5.5 103/ul Normal 4.0-11.0 [facility] Comment on above: Performed By: #### L IPA, DLDL, CON, LIPID, T7, CMP, TSH #### [facility] [address] [address] [address] Delmer Rea IRON AND TIBCon 03-10-2023 % SATURATION 13.6 % Normal [facility] Comment on above: Performed By: #### L IPA, DLDL, CON, LIPID, T7, CMP, TSH #### [facility] [address] [address] [address] Delmer Rea Iron [Mass/Vol] 61.0 ug/dL Normal 50.0-170.0 [facility] Comment on above: Performed By: #### L IPA, DLDL, CON, LIPID, T7, CMP, TSH #### [facility] [address] [place] [address] Dr. Delmer Rea TIBC DIRECT 447.0 ug/dL Normal 250.0-450.0 [facility] Comment on above: Performed By: #### L IPA, DLDL, CON, LIPID, T7, CMP, TSH #### [facility] [address] [place] [address] Dr. Delmer Rea MAGNESIUMon 03-10-2023 Magnesium [Mass/Vol] 1.7 mg/dL Critically low 1.8-2.4 [facility] Comment on above: Performed By: #### L IPA, DLDL, CON, LIPID, T7, CMP, TSH #### [facility] [address] [place] [address] Dr. Delmer Rea PHOSPHORUSon 03-10-2023 Phosphate [Mass/Vol] 4.9 mg/dL Critically high 2.6-4.7 [facility] Comment on above: Performed By: #### L IPA, DLDL, CON, LIPID, T7, CMP, TSH #### [facility] [address] [place] [address] Dr. Delmer Rea PROF 14(COMP METB)on 023 Albumin [Mass/Vol] 3.4 g/dL Normal 3.4-5.0 [facility] Comment on above: Performed By: #### L IPA, DLDL, CON, LIPID, T7, CMP, TSH #### [facility] [address] [place] [address] Dr. Delmer Rea Albumin/Globulin [Mass ratio] 0.8 {ratio} Normal [facility] Comment on above: Performed By: #### L IPA, DLDL, CON, LIPID, T7, CMP, TSH #### [facility] [address] [place] [address] Dr. Delmer Rea ALP [Catalytic activity/Vol] 102 U/L Normal 46-116 [facility] Comment on above: Performed By: #### L IPA, DLDL, CON, LIPID, T7, CMP, TSH #### [facility] [address] [place] [address] Dr. Delmer Rea ALT [Catalytic activity/Vol] 28 U/L Normal 14-59 [facility] Comment on above: Performed By: #### L IPA, DLDL, CON, LIPID, T7, CMP, TSH #### [facility] [address] [place] [address] Dr. Delmer Rea Anion gap [Moles/Vol] 15.1 mmol/L Normal [facility] Comment on above: Performed By: #### L IPA, DLDL, CON, LIPID, T7, CMP, TSH #### [facility] [address] [place] [address] Dr. Delmer Rea AST [Catalytic activity/Vol] 16 U/L Normal 15-37 [facility] Comment on above: Performed By: #### L IPA, DLDL, CON, LIPID, T7, CMP, TSH #### [facility] [address] [place] [address] Dr. Delmer Rea Bilirubin [Mass/Vol] 0.5 mg/dL Normal 0.2-1.0 [facility] Comment on above: Performed By: #### L IPA, DLDL, CON, LIPID, T7, CMP, TSH #### [facility] [address] [place] [address] Dr. Delmer Rea Calcium [Mass/Vol] 9.5 mg/dL Normal 8.5-10.1 [facility] Comment on above: Performed By: #### L IPA, DLDL, CON, LIPID, T7, CMP, TSH #### [facility] [address] [address] [address] Delmer Rea Chloride [Moles/Vol] 100 mmol/L Normal 98-107 [facility] Comment on above: Performed By: #### L IPA, DLDL, CON, LIPID, T7, CMP, TSH #### [facility] [address] [address] [address] Delmer Rea CO2 [Moles/Vol] 23.4 mmol/L Normal 21.0-32.0 [facility] Comment on above: Performed By: #### L IPA, DLDL, CON, LIPID, T7, CMP, TSH #### [facility] [address] [place] [address] Dr. Delmer Rea Creatinine [Mass/Vol] 1.86 mg/dL Critically high 0.55-1.02 [facility] Comment on above: Performed By: #### L IPA, DLDL, CON, LIPID, T7, CMP, TSH #### [facility] [address] [place] [address] Dr. Delmer Rea EGFR-AF FIJIAN 35 mL/min/1.73m2 Critically low >=60 [facility] Comment on above: Performed By: #### L IPA, DLDL, CON, LIPID, T7, CMP, TSH #### [facility] [address] [place] [address] Dr. Delmer Rea EGFR-NON AF FIJIAN 29 mL/min/1.73m2 Critically low >=60 [facility] Comment on above: Performed By: #### L IPA, DLDL, CON, LIPID, T7, CMP, TSH #### [facility] [address] [place] [address] Dr. Delmer Rea Globulin (S) [Mass/Vol] 4.3 g/dL Normal [facility] Comment on above: Performed By: #### L IPA, DLDL, CON, LIPID, T7, CMP, TSH #### [facility] [address] [place] [address] Dr. Delmer Rea Glucose [Mass/Vol] 197 mg/dL Critically high 74-106 [facility] Comment on above: Performed By: #### L IPA, DLDL, CON, LIPID, T7, CMP, TSH #### [facility] [address] [place] [address] Dr. Delmer Rea Potassium [Moles/Vol] 4.5 mmol/L Normal 3.5-5.1 [facility] Comment on above: Performed By: #### L IPA, DLDL, CON, LIPID, T7, CMP, TSH #### [facility] [address] [place] [address] Dr. Delmer Rea Protein [Mass/Vol] 7.7 g/dL Normal 6.4-8.2 [facility] Comment on above: Performed By: #### L IPA, DLDL, CON, LIPID, T7, CMP, TSH #### [facility] [address] [place] [address] Dr. Delmer Rea Sodium [Moles/Vol] 134 mmol/L Critically low 136-145 [facility] Comment on above: Performed By: #### L IPA, DLDL, CON, LIPID, T7, CMP, TSH #### [facility] [address] [place] [address] Dr. Delmer Rea Urea nitrogen [Mass/Vol] 40.0 mg/dL Critically high 7.0-18.0 [facility] Comment on above: Performed By: #### L IPA, DLDL, CON, LIPID, T7, CMP, TSH #### [facility] [address] [place] [address] Dr. Delmer Rea Urea nitrogen/Creatinine [Mass ratio] 21.5 mg/mg Normal [facility] Comment on above: Performed By: #### L IPA, DLDL, CON, LIPID, T7, CMP, TSH #### [facility] [address] [place] [address] Dr. Delmer Rea URIC ACID SERUMon 03-10-2023 Urate [Mass/Vol] 7.1 mg/dL Critically high 2.6-6.0 [facility] Comment on above: Performed By: #### L IPA, DLDL, CON, LIPID, T7, CMP, TSH #### [facility] [address] [place] [address] Dr. Delmer Rea VIT B12 AND FOLATEon 023 Cobalamin (Vitamin B12) [Mass/Vol] 369.0 pg/mL Normal 193.0-986.0 [facility] Comment on above: Performed By: #### L IPA, DLDL, CON, LIPID, T7, CMP, TSH #### [facility] [address] [place] [address] Dr. Delmer Rea FOLATE 20.30 ng/mL Normal 8.60-58.90 [facility] Comment on above: Performed By: #### L IPA, DLDL, CON, LIPID, T7, CMP, TSH #### [facility] [address] [place] [address] Dr. Delmer eRa VITAMIN D 25 OHon 03-10-2023 VIT D 25-OH 13.0 ng/mL Normal [facility] Comment on above: Performed By: #### L IPA, DLDL, CON, LIPID, T7, CMP, TSH #### [facility] [address] [place] [address] Dr. Delmer Rea VIT D RANGES SEE BELOW Normal [facility] Comment on above: Result Comment: <20 ng/mL Vit D deficient 20 - <30 ng/mL Vit D insufficient 30 - 100 ng/mL Vit D sufficient >100 ng/mL Potential Toxicity Performed By: #### L IPA, DLDL, CON, LIPID, T7, CMP, TSH #### [facility] [address] [place] [address] Dr. Delmer Rea PROF 14(COMP METB)on 023 Albumin [Mass/Vol] 3.4 g/dL Normal 3.4-5.0 [facility] Comment on above: Performed By: #### L IPA, DLDL, CON, LIPID, T7, CMP, TSH #### [facility] [address] [place] [address] Dr. Delmer Rea Albumin/Globulin [Mass ratio] 0.9 {ratio} Normal [facility] Comment on above: Performed By: #### L IPA, DLDL, CON, LIPID, T7, CMP, TSH #### [facility] [address] [address] [address] Delmer Rea ALP [Catalytic activity/Vol] 95 U/L Normal 46-116 [facility] Comment on above: Performed By: #### L IPA, DLDL, CON, LIPID, T7, CMP, TSH #### [facility] [address] [address] [address] Delmer Rea ALT [Catalytic activity/Vol] 23 U/L Normal 14-59 [facility] Comment on above: Performed By: #### L IPA, DLDL, CON, LIPID, T7, CMP, TSH #### [facility] [address] [address] [address] Delmer Rea Anion gap [Moles/Vol] 15.2 mmol/L Normal [facility] Comment on above: Performed By: #### L IPA, DLDL, CON, LIPID, T7, CMP, TSH #### [facility] [address] [address] [address] Delmer Rea AST [Catalytic activity/Vol] 8 U/L Critically low 15-37 [facility] Comment on above: Performed By: #### L IPA, DLDL, CON, LIPID, T7, CMP, TSH #### [facility] [address] [address] [address] Delmer Rea Bilirubin [Mass/Vol] 0.3 mg/dL Normal 0.2-1.0 [facility] Comment on above: Performed By: #### L IPA, DLDL, CON, LIPID, T7, CMP, TSH #### [facility] [address] [place] [address] Dr. Delmer Rea Calcium [Mass/Vol] 9.2 mg/dL Normal 8.5-10.1 [facility] Comment on above: Performed By: #### L IPA, DLDL, CON, LIPID, T7, CMP, TSH #### [facility] [address] [place] [address] Dr. Delmer Rea Chloride [Moles/Vol] 102 mmol/L Normal 98-107 [facility] Comment on above: Performed By: #### L IPA, DLDL, CON, LIPID, T7, CMP, TSH #### [facility] [address] [place] [address] Dr. Delmer Rea CO2 [Moles/Vol] 22.6 mmol/L Normal 21.0-32.0 [facility] Comment on above: Performed By: #### L IPA, DLDL, CON, LIPID, T7, CMP, TSH #### [facility] [address] [address] [address] Delmer Rea Creatinine [Mass/Vol] 1.89 mg/dL Critically high 0.55-1.02 [facility] Comment on above: Performed By: #### L IPA, DLDL, CON, LIPID, T7, CMP, TSH #### [facility] [address] [place] [address] Dr. Delmer Rea EGFR-AF FIJIAN 34 mL/min/1.73m2 Critically low >=60 [facility] Comment on above: Performed By: #### L IPA, DLDL, CON, LIPID, T7, CMP, TSH #### [facility] [address] [place] [address] Dr. Delmer Rea EGFR-NON AF FIJIAN 28 mL/min/1.73m2 Critically low >=60 [facility] Comment on above: Performed By: #### L IPA, DLDL, CON, LIPID, T7, CMP, TSH #### [facility] [address] [place] [address] Dr. Delmer Rea Globulin (S) [Mass/Vol] 3.9 g/dL Normal [facility] Comment on above: Performed By: #### L IPA, DLDL, CON, LIPID, T7, CMP, TSH #### [facility] [address] [place] [address] Dr. Delmer Rea Glucose [Mass/Vol] 257 mg/dL Critically high 74-106 T [facility] Comment on above: Performed By: #### L IPA, DLDL, CON, LIPID, T7, CMP, TSH #### [facility] [address] [place] [address] Dr. Delmer Rea Potassium [Moles/Vol] 4.8 mmol/L Normal 3.5-5.1 [facility] Comment on above: Performed By: #### L IPA, DLDL, CON, LIPID, T7, CMP, TSH #### [facility] [address] [place] [address] Dr. eDlmer Rea Protein [Mass/Vol] 7.3 g/dL Normal 6.4-8.2 [facility] Comment on above: Performed By: #### L IPA, DLDL, CON, LIPID, T7, CMP, TSH #### [facility] [address] [place] [address] Dr. Delmer Rea Sodium [Moles/Vol] 135 mmol/L Critically low 136-145 Th e [facility] Comment on above: Performed By: #### L IPA, DLDL, CON, LIPID, T7, CMP, TSH #### [facility] [address] [place] [address] Dr. Delmer Rea Urea nitrogen [Mass/Vol] 39.0 mg/dL Critically high 7.0-18.0 [facility] Comment on above: Performed By: #### L IPA, DLDL, CON, LIPID, T7, CMP, TSH #### [facility] [address] [place] [address] Dr. Delmer Rea Urea nitrogen/Creatinine [Mass ratio] 20.6 mg/mg Normal [facility] Comment on above: Performed By: #### L IPA, DLDL, CON, LIPID, T7, CMP, TSH #### [facility] [address] [place] [address] Dr. Delmer Rea PROF 14(COMP METB)on 023 Albumin [Mass/Vol] 3.5 g/dL Normal 3.4-5.0 [facility] Comment on above: Performed By: #### U MICRO, ERUR #### [facility] [address] [place] [address] Dr. Delmer Rea Albumin/Globulin [Mass ratio] 0.8 {ratio} Normal [facility] Comment on above: Performed By: #### U MICRO, ERUR #### [facility] [address] [place] [address] Dr. Delmer Rea ALP [Catalytic activity/Vol] 113 U/L Normal 46-116 [facility] Comment on above: Performed By: #### U MICRO, ERUR #### [facility] [address] [address] [address] Delmer Rea ALT [Catalytic activity/Vol] 23 U/L Normal 14-59 [facility] Comment on above: Performed By: #### U MICRO, ERUR #### [facility] [address] [address] [address] Delmer Rea Anion gap [Moles/Vol] 15.5 mmol/L Normal [facility] Comment on above: Performed By: #### U MICRO, ERUR #### [facility] [address] [place] [address] Dr. Delmer Rea AST [Catalytic activity/Vol] 15 U/L Normal 15-37 [facility] Comment on above: Performed By: #### U MICRO, ERUR #### [facility] [address] [place] [address] Dr. Delmer Rea Bilirubin [Mass/Vol] 0.3 mg/dL Normal 0.2-1.0 [facility] Comment on above: Performed By: #### U MICRO, ERUR #### [facility] [address] [place] [address] Dr. Delmer Rea Calcium [Mass/Vol] 9.5 mg/dL Normal 8.5-10.1 [facility] Comment on above: Performed By: #### U MICRO, ERUR #### [facility] [address] [place] [address] Dr. Delmer Rea Chloride [Moles/Vol] 104 mmol/L Normal 98-107 [facility] Comment on above: Performed By: #### U MICRO, ERUR #### [facility] [address] [place] [address] Dr. Delmer Rea CO2 [Moles/Vol] 25.1 mmol/L Normal 21.0-32.0 [facility] Comment on above: Performed By: #### U MICRO, ERUR #### [facility] [address] [address] [address] Delmer Rea Creatinine [Mass/Vol] 1.29 mg/dL Critically high 0.55-1.02 [facility] Comment on above: Performed By: #### U MICRO, ERUR #### [facility] [address] [address] [address] Delmer Rea EGFR-AF FIJIAN 53 mL/min/1.73m2 Critically low >=60 [facility] Comment on above: Performed By: #### U MICRO, ERUR #### [facility] [address] [address] [address] Delmer Rea EGFR-NON AF FIJIAN 44 mL/min/1.73m2 Critically low >=60 [facility] Comment on above: Performed By: #### U MICRO, ERUR #### [facility] [address] [address] [address] Delmer Rea Globulin (S) [Mass/Vol] 4.2 g/dL Normal [facility] Comment on above: Performed By: #### U MICRO, ERUR #### [facility] [address] [address] [address] Delmer Rea Glucose [Mass/Vol] 135 mg/dL Critically high 74-106 T [facility] Comment on above: Performed By: #### U MICRO, ERUR #### [facility] [address] [address] [address] Delmer Rea Potassium [Moles/Vol] 4.6 mmol/L Normal 3.5-5.1 [facility] Comment on above: Performed By: #### U MICRO, ERUR #### [facility] [address] [address] [address] Delmer Rea Protein [Mass/Vol] 7.7 g/dL Normal 6.4-8.2 [facility] Comment on above: Performed By: #### U MICRO, ERUR #### [facility] [address] [address] [address] Delmer Rea Sodium [Moles/Vol] 140 mmol/L Normal 136-145 [facility] Comment on above: Performed By: #### U MICRO, ERUR #### [facility] [address] [place] [address] Dr. Delmer Rea Urea nitrogen [Mass/Vol] 28.0 mg/dL Critically high 7.0-18.0 [facility] Comment on above: Performed By: #### U MICRO, ERUR #### [facility] [address] [place] [address] Dr. Delmer Rea Urea nitrogen/Creatinine [Mass ratio] 21.7 mg/mg Normal [facility] Comment on above: Performed By: #### U MICRO, ERUR #### [facility] [address] [place] [address] Dr. Delmer Rea H PYLORI ANTIBODY IGGon 11-07 H. PYLORI IGG ABS 4.50 Index Value Critically high 0.00-0. 79 [facility] Comment on above: Result Comment: Nega tive <0.80 Equivocal 0.80 - 0.89 Positive >0.89 Performed By: #### L IPA, DLDL, CON, LIPID, T7, CMP, TSH #### [facility] [address] [place] [address] Dr. Delmer Rea AMYLASEon 11-25-2022 Amylase [Catalytic activity/Vol] 42 U/L Normal 25-115 [facility] Comment on above: Performed By: #### L IPA, DLDL, CON, LIPID, T7, CMP, TSH #### [facility] [address] [place] [address] Dr. Delmer Rea CBC AUTO DIFFon 11-25-2022 BASO # 0.0 103/ul Normal 0.0-0.1 [facility] Comment on above: Performed By: #### U MICRO, ERUR #### [facility] [address] [place] [address] Dr. Delmer Rea Basophils/100 WBC (Bld) 0.6 % Normal 0.2-2.0 [facility] Comment on above: Performed By: #### U MICRO, ERUR #### [facility] [address] [place] [address] Dr. Delmer Rea EO # 0.2 103/ul Normal 0.0-0.7 [facility] Comment on above: Performed By: #### U MICRO, ERUR #### [facility] [address] [address] [address] Delmer Rea Eosinophils/100 WBC (Bld) 3.2 % Normal 0.9-7.0 [facility] Comment on above: Performed By: #### U MICRO, ERUR #### [facility] [address] [place] [address] Dr. Delmer Rea Erythrocyte distribution width (RBC) [Ratio] 13.5 % Normal 11.0-15.0 [facility] Comment on above: Performed By: #### U MICRO, ERUR #### [facility] [address] [place] [address] Dr. Delmer Rea Hematocrit (Bld) [Volume fraction] 28.6 % Critically low 36.0-48.0 [facility] Comment on above: Performed By: #### U MICRO, ERUR #### [facility] [address] [place] [address] Dr. Delmer Rea Hemoglobin (Bld) [Mass/Vol] 10.4 g/dL Critically low 12.0-16.0 [facility] Comment on above: Performed By: #### U MICRO, ERUR #### [facility] [address] [place] [address] Dr. Delmer Rea IG # 0.06 10e3/ul Critically high 0.00-0.03 [facility] Comment on above: Performed By: #### U MICRO, ERUR #### [facility] [address] [place] [address] Dr. Delmer Rea IG % 0.9 % Critically high 0.0-0.5 [facility] Comment on above: Performed By: #### U MICRO, ERUR #### [facility] [address] [place] [address] Dr. Delmer Rea LYMPH # 2.2 103/ul Normal 1.2-3.8 [facility] Comment on above: Performed By: #### U MICRO, ERUR #### [facility] [address] [place] [address] Dr. Delmer Rea Lymphocytes/100 WBC (Bld) 32.2 % Normal 20.5-60.0 [facility] Comment on above: Performed By: #### U MICRO, ERUR #### [facility] [address] [place] [address] Dr. Delmer Rea MANUAL DIFF REQ NO Normal [facility] Comment on above: Performed By: #### U MICRO, ERUR #### [facility] [address] [place] [address] Dr. Delmer Rea MCH (RBC) [Entitic mass] 27.6 pg Normal 26.7-34.0 [facility] Comment on above: Performed By: #### U MICRO, ERUR #### [facility] [address] [place] [address] Dr. Delmer Rea MCHC (RBC) [Mass/Vol] 36.4 g/dL Critically high 29.9-35.2 [facility] Comment on above: Performed By: #### U MICRO, ERUR #### [facility] [address] [place] [address] Dr. Delmer Rea MCV (RBC) [Entitic vol] 75.9 fL Critically low 81.0-99.0 [facility] Comment on above: Performed By: #### U MICRO, ERUR #### [facility] [address] [place] [address] Dr. Delmer Rea MONO # 0.7 103/ul Normal 0.3-0.8 [facility] Comment on above: Performed By: #### U MICRO, ERUR #### [facility] [address] [place] [address] Dr. Delmer Rea Monocytes/100 WBC (Bld) 9.4 % Normal 1.7-12.0 [facility] Comment on above: Performed By: #### U MICRO, ERUR #### [facility] [address] [place] [address] Dr. Delmer Rea NEUT # 3.7 103/ul Normal 1.4-6.5 [facility] Comment on above: Performed By: #### U MICRO, ERUR #### [facility] [address] [address] [address] Delmer Rea Neutrophils/100 WBC (Bld) 53.7 % Normal 43.0-75.0 [facility] Comment on above: Performed By: #### U MICRO, ERUR #### [facility] [address] [place] [address] Dr. Delmer Rea Platelet mean volume (Bld) [Entitic vol] 9.4 fL Critically low 9.5-13.5 [facility] Comment on above: Performed By: #### U MICRO, ERUR #### [facility] [address] [address] [address] Delmer Rea PLT 313 103/ul Normal 150-450 [facility] Comment on above: Performed By: #### U MICRO, ERUR #### [facility] [address] [place] [address] Dr. Delmer Rea RBC 3.77 106/ul Critically low 4.20-5.40 [facility] Comment on above: Performed By: #### U MICRO, ERUR #### [facility] [address] [address] [address] Delmer Rea WBC 6.9 103/ul Normal 4.0-11.0 [facility] Comment on above: Performed By: #### U MICRO, ERUR #### [facility] [address] [place] [address] Dr. Delmer Rea DIRECT LDLon 11-25-2022 Cholesterol in LDL [Mass/Vol] 102 mg/dL Normal [facility] Comment on above: Performed By: #### L IPA, DLDL, CON, LIPID, T7, CMP, TSH #### [facility] [address] [place] [address] Dr. Delmer Rea DLDL NORMAL SEE BELOW Normal [facility] Comment on above: Result Comment: <100 mg/dl OPTIMAL 100 - 129 mg/dl NEAR OR ABOVE OPTIMAL 130 - 159 mg/dl BORDERLINE HIGH 160 - 189 mg/dl HIGH >190 mg/dl VERY HIGH Performed By: #### L IPA, DLDL, CON, LIPID, T7, CMP, TSH #### [facility] [address] [place], [place] [id number] Dr. Delmer Rea FREE THYROXINE INDEX T7on FTI 4.31 Normal 1.30-4.50 [facility] Comment on above: Performed By: #### L IPA, DLDL, CON, LIPID, T7, CMP, TSH #### [facility] [address] [place] [address] Dr. Delmer Rea T3U 35.0 % Normal 30.0-39.0 [facility] Comment on above: Performed By: #### L IPA, DLDL, CON, LIPID, T7, CMP, TSH #### [facility] [address] [place] [address] Dr. Delmer Rea T4 [Mass/Vol] 12.30 ug/dL Normal 4.80-13.90 [facility] Comment on above: Performed By: #### L IPA, DLDL, CON, LIPID, T7, CMP, TSH #### [facility] [address] [place] [address] Dr. Delmer Rea GLYCOHEMOGLOBIN A1Con 2022 ADA RECOMMENDATION SEE BELOW Normal [facility] Comment on above: Result Comment: ADA RECOMMENDED LIMIT 4.0 - 6.0 ADA THERAPEUTIC TARGET < 7.0 ACTION SUGGESTED > 7.0 Performed By: #### U MICRO, ERUR #### [facility] [address] [place] [address] Dr. Delmer Rea Glucose [Mass/Vol] 180 mg/dL Normal [facility] Comment on above: Performed By: #### U MICRO, ERUR #### [facility] [address] [place] [address] Dr. Delmer Rea HbA1c (Bld) [Mass fraction] 7.9 % Critically high 4.5-6.2 [facility] Comment on above: Performed By: #### U MICRO, ERUR #### [facility] [address] [place] [address] Dr. Delmer Rea IRONon 11-25-2022 Iron [Mass/Vol] 35.0 ug/dL Critically low 50.0-170.0 [facility] Comment on above: Performed By: #### L IPA, DLDL, CON, LIPID, T7, CMP, TSH #### [facility] [address] [place] [address] Dr. Delmer Rea LIPASEon 11-25-2022 Lipase [Catalytic activity/Vol] 155.0 U/L Normal 73.0-393.0 [facility] Comment on above: Performed By: #### L IPA, DLDL, CON, LIPID, T7, CMP, TSH #### [facility] [address] [place] [address] Dr. Delmer Rea LIPID PROFILEon 11-25-2022 CHOL-HDL RATIO NORM SEE BELOW Normal [facility] Comment on above: Result Comment: 3.3 - 4.4 LOW RISK 4.4 - 7.1 AVERAGE RISK 7.1 - 11.0 MODERATE RISK >11.0 HIGH RISK Performed By: #### L IPA, DLDL, CON, LIPID, T7, CMP, TSH #### [facility] [address] [place] [address] Dr. Delmer Rea Cholesterol [Mass/Vol] 238 mg/dL Critically high <=200 [facility] Comment on above: Performed By: #### L IPA, DLDL, CON, LIPID, T7, CMP, TSH #### [facility] [address] [place] [address] Dr. Delmer Rea Cholesterol in HDL [Mass/Vol] 39 mg/dL Critically low 40-60 [facility] Comment on above: Performed By: #### L IPA, DLDL, CON, LIPID, T7, CMP, TSH #### [facility] [address] [place] [address] Dr. Delmer Rea Cholesterol.total/Ch olesterol in HDL [Mass ratio] 6.1 {ratio} Normal [facility] Comment on above: Performed By: #### L IPA, DLDL, CON, LIPID, T7, CMP, TSH #### [facility] [address] [place] [address] Dr. Delmer Rea HDL NORMAL > or = 60 mg/dl - LO W CARDIOVASCULAR RISK <40 mg/dl - HIGH CARDIOVASCULAR RISK Normal [facility] Comment on above: Performed By: #### L IPA, DLDL, CON, LIPID, T7, CMP, TSH #### [facility] [address] [address] [address] Delmer Rea LDL CALC NORMAL SEE BELOW Normal [facility] Comment on above: Result Comment: <100 mg/dl OPTIMAL 100 - 129 mg/dl NEAR OR ABOVE OPTIMAL 130 - 159 mg/dl BORDERLINE HIGH 160 - 189 mg/dl HIGH >190 mg/dl VERY HIGH Performed By: #### L IPA, DLDL, CON, LIPID, T7, CMP, TSH #### [facility] [address] [address] [address] Delmer Rea Triglyceride [Mass/Vol] 579 mg/dL Critically high <=150 [facility] Comment on above: Performed By: #### L IPA, DLDL, CON, LIPID, T7, CMP, TSH #### [facility] [address] [address] [address] Delmer Rea VLDL CALC 115.8 mg/dL Normal [facility] Comment on above: Performed By: #### L IPA, DLDL, CON, LIPID, T7, CMP, TSH #### [facility] [address] [address] [address] Delmer Rea PROF 14(COMP METB)on 023 Albumin [Mass/Vol] 3.5 g/dL Normal 3.4-5.0 [facility] Comment on above: Performed By: #### L IPA, DLDL, CON, LIPID, T7, CMP, TSH #### [facility] [address] [address] [address] Delmer Rea Albumin/Globulin [Mass ratio] 0.8 {ratio} Normal [facility] Comment on above: Performed By: #### L IPA, DLDL, CON, LIPID, T7, CMP, TSH #### [facility] [address] [place] [address] Dr. Delmer Rea ALP [Catalytic activity/Vol] 110 U/L Normal 46-116 [facility] Comment on above: Performed By: #### L IPA, DLDL, CON, LIPID, T7, CMP, TSH #### [facility] [address] [address] [address] Delmer Rea ALT [Catalytic activity/Vol] 19 U/L Normal 14-59 [facility] Comment on above: Performed By: #### L IPA, DLDL, CON, LIPID, T7, CMP, TSH #### [facility] [address] [address] [address] Delmer Rea Anion gap [Moles/Vol] 17.0 mmol/L Normal [facility] Comment on above: Performed By: #### L IPA, DLDL, CON, LIPID, T7, CMP, TSH #### [facility] [address] [address] [address] Delmer Rea AST [Catalytic activity/Vol] 13 U/L Critically low 15-37 [facility] Comment on above: Performed By: #### L IPA, DLDL, CON, LIPID, T7, CMP, TSH #### [facility] [address] [address] [address] Delmer Rea Bilirubin [Mass/Vol] 0.3 mg/dL Normal 0.2-1.0 [facility] Comment on above: Performed By: #### L IPA, DLDL, CON, LIPID, T7, CMP, TSH #### [facility] [address] [address] [address] Delmer Rea Calcium [Mass/Vol] 9.6 mg/dL Normal 8.5-10.1 [facility] Comment on above: Performed By: #### L IPA, DLDL, CON, LIPID, T7, CMP, TSH #### [facility] [address] [address] [address] Delmer Rea Chloride [Moles/Vol] 104 mmol/L Normal 98-107 [facility] Comment on above: Performed By: #### L IPA, DLDL, CON, LIPID, T7, CMP, TSH #### [facility] [address] [address] [address] Delmer Rea CO2 [Moles/Vol] 22.7 mmol/L Normal 21.0-32.0 [facility] Comment on above: Performed By: #### L IPA, DLDL, CON, LIPID, T7, CMP, TSH #### [facility] [address] [address] [address] Delmer Rea Creatinine [Mass/Vol] 2.15 mg/dL Critically high 0.55-1.02 [facility] Comment on above: Performed By: #### L IPA, DLDL, CON, LIPID, T7, CMP, TSH #### [facility] [address] [address] [address] Delmer Rea EGFR-AF FIJIAN 29 mL/min/1.73m2 Critically low >=60 [facility] Comment on above: Performed By: #### L IPA, DLDL, CON, LIPID, T7, CMP, TSH #### [facility] [address] [address] [address] Delmer Rea EGFR-NON AF FIJIAN 24 mL/min/1.73m2 Critically low >=60 [facility] Comment on above: Performed By: #### L IPA, DLDL, CON, LIPID, T7, CMP, TSH #### [facility] [address] [address] [address] Delmer Rea Globulin (S) [Mass/Vol] 4.3 g/dL Normal [facility] Comment on above: Performed By: #### L IPA, DLDL, CON, LIPID, T7, CMP, TSH #### [facility] [address] [place] [address] Dr. Delmer Rea Glucose [Mass/Vol] 189 mg/dL Critically high 74-106 T [facility] Comment on above: Performed By: #### L IPA, DLDL, CON, LIPID, T7, CMP, TSH #### [facility] [address] [address] [address] Delmre Rea Potassium [Moles/Vol] 4.7 mmol/L Normal 3.5-5.1 [facility] Comment on above: Performed By: #### L IPA, DLDL, CON, LIPID, T7, CMP, TSH #### [facility] [address] [address] [address] Delmer Rea Protein [Mass/Vol] 7.8 g/dL Normal 6.4-8.2 [facility] Comment on above: Performed By: #### L IPA, DLDL, CON, LIPID, T7, CMP, TSH #### [facility] [address] [address] [address] Delmer Rea Sodium [Moles/Vol] 139 mmol/L Normal 136-145 [facility] Comment on above: Performed By: #### L IPA, DLDL, CON, LIPID, T7, CMP, TSH #### [facility] [address] [place] [address] Dr. Delmer Rea Urea nitrogen [Mass/Vol] 48.0 mg/dL Critically high 7.0-18.0 [facility] Comment on above: Performed By: #### L IPA, DLDL, CON, LIPID, T7, CMP, TSH #### [facility] [address] [place] [address] Dr. Delmer Rea Urea nitrogen/Creatinine [Mass ratio] 22.3 mg/mg Normal [facility] Comment on above: Performed By: #### L IPA, DLDL, CON, LIPID, T7, CMP, TSH #### [facility] [address] [place] [address] Dr. Delmer Rea TSHon 11-25-2022 TSH 0.063 uIU/mL Critically low 0.358-3.740 [facility] Comment on above: Performed By: #### L IPA, DLDL, CON, LIPID, T7, CMP, TSH #### [facility] [address] [place] [address] Dr. Delmer Rea CULTURE URINEon 09-12-2022 CULTURE URINE Culture Observations : LIGHT GROWTH OF MIXED GENITAL JOSE. NO POTENTIAL PATHOGENS SEEN. Normal [facility] Comment on above: Performed By: #### L IPA, DLDL, CON, LIPID, T7, CMP, TSH #### [facility] [address] [place] [address] Dr. Delmer Rea URINE MICROSCOPIC ONLYon BACTERIA MODERATE Abnormal NONE SEEN [facility] Comment on above: Performed By: #### L IPA, DLDL, CON, LIPID, T7, CMP, TSH #### [facility] [address] [place] [address] Dr. Delmer Rea Bacteria identified Cx Nom (U) CX ALREADY ORDERED Normal [facility] Comment on above: Performed By: #### L IPA, DLDL, CON, LIPID, T7, CMP, TSH #### [facility] [address] [address] [address] Delmer Rea CAST NONE SEEN Normal NONE SEEN [facility] Comment on above: Performed By: #### L IPA, DLDL, CON, LIPID, T7, CMP, TSH #### [facility] [address] [address] [address] Delmer Rea Crystals LM Nom (Urine sed) NONE SEEN Normal NONE SEEN [facility] Comment on above: Performed By: #### L IPA, DLDL, CON, LIPID, T7, CMP, TSH #### [facility] [address] [address] [address] Delmer Rea Epithelial cells LM Ql (Urine sed) FEW Abnormal NONE SEEN /RARE [facility] Comment on above: Performed By: #### L IPA, DLDL, CON, LIPID, T7, CMP, TSH #### [facility] [address] [address] [address] Delmer Rea MUCOUS NONE SEEN Normal NONE SEEN [facility] Comment on above: Performed By: #### L IPA, DLDL, CON, LIPID, T7, CMP, TSH #### [facility] [address] [address] [address] Delmer Rea RBC 5-10 Abnormal 0-2 [facility] Comment on above: Performed By: #### L IPA, DLDL, CON, LIPID, T7, CMP, TSH #### [facility] [address] [address] [address] Delmer Rea WBC (U) [#/Vol] /uL Abnormal NONE SEEN [facility] Comment on above: Performed By: #### L IPA, DLDL, CON, LIPID, T7, CMP, TSH #### [facility] [address] [address] [address] Delmer Rea YEAST PRESENT Abnormal NONE SEEN [facility] Comment on above: Performed By: #### L IPA, DLDL, CON, LIPID, T7, CMP, TSH #### [facility] [address] [address] [address] Delmer Rea NM KIDNEY W FLOW AND FUNCTIO N [...] Akil Cummings MD 08/05/22 Final result Normal [facility] APTTon 07-26-2022 aPTT Coag (Bld) [Time] 23.4 s Normal 20.5-30.5 [facility] Comment on above: Result Comment: IV Heparin Therapy Range: 48.6-77.8 Performed By: #### A NAX, IFX, PHEP, FKLLC, PE #### [facility] [address] [place] [address] Professor Of Geology: Bala Skelton MD aPTT Coag (Bld) [Time] 23.4 s [facility] Comment on above: IV Heparin Therapy Range: 48.6-77.8 CBC with Auto Differentialon 07-26-2022 Absolute Eos # 0.29 [facility] Absolute Immature Granulocyte 0.09 [facility] Absolute Lymph # 2.26 [facility] Absolute [place] # 0.65 [facility] Basophils (Bld) [#/Vol] 0.04 10*3/uL [facility] Basophils/100 WBC (Bld) 1 % 0 - 2 % [facility] Eosinophils/100 WBC (Bld) 4 % 1 - 4 % [facility] Hematocrit (Bld) [Volume fraction] 29.5 % Low 36.3 - 47.1 % [facility] Hemoglobin (Bld) [Mass/Vol] 10.1 g/dL Low 11.9 - 15.1 g/dL [facility] Immature granulocytes/100 WBC (Bld) 1 % High 0 [facility] Interpretation and review of laboratory results Abnormal [facility] Lymphocytes/100 WBC (Bld) 27 % 24 - 43 % [facility] MCH (RBC) [Entitic mass] 29.3 pg 25.2 - 33.5 pg [facility] MCHC (RBC) [Mass/Vol] 34.2 g/dL 28.4 - 34.8 g/dL [facility] MCV (RBC) [Entitic vol] 85.5 fL 82.6 - 102.9 fL [facility] Monocytes/100 WBC (Bld) 8 % 3 - 12 % [facility] NRBC Automated 0.0 0.0 per 100 WBC [facility] Platelet distribution width (Bld) [Ratio] 13.4 % 11.8 - 14.4 % [facility] Platelet mean volume (Bld) [Entitic vol] 9.5 fL 8.1 - 13.5 fL [facility] Platelets (Bld) [#/Vol] 311 10*3/uL [facility] RBC (Bld) [#/Vol] 3.45 10*6/uL Low 3.95 - 5.1 1 m/uL [facility] Segmented neutrophils/100 WBC (Bld) 59 % 36 - 65 % [facility] Segs Absolute 5.00 [facility] WBC (Bld) [#/Vol] 8.3 10*3/uL [facility] CBC with Diffon 07-26-2022 Abs. Basophil 0.04 k/uL Normal 0.00-0.20 [facility] Comment on above: Performed By: #### A NAX, IFX, PHEP, FKLLC, PE #### [place] [address] Professor Of Geology: Bala Skelton MD Abs.Imm.Granulocyte 0.09 k/uL Normal 0.00-0.30 [facility] Comment on above: Performed By: #### A NAX, IFX, PHEP, FKLLC, PE #### [place] [address] Professor Of Geology: Bala Skelton MD Abs.Neutrophil (Seg) 5.00 k/uL Normal 1.50-8.10 [facility] Comment on above: Performed By: #### A NAX, IFX, PHEP, FKLLC, PE #### [facility] [employer] [address] [place] [address] Professor Of Geology: Bala Skelton MD Basophils/100 WBC (Bld) 1 % Normal 0-2 [facility] Comment on above: Performed By: #### A NAX, IFX, PHEP, FKLLC, PE #### [facility] [employer] [address] [place] [address] Professor Of Geology: Bala Skelton MD Eosinophils (Bld) [#/Vol] 0.29 10*3/uL Normal 0.00-0.44 [facility] Comment on above: Performed By: #### A NAX, IFX, PHEP, FKLLC, PE #### [address] [address] Professor Of Geology: Bala Skelton MD Eosinophils/100 WBC (Bld) 4 % Normal 1-4 [facility] Comment on above: Performed By: #### A NAX, IFX, PHEP, FKLLC, PE #### [facility] [employer] [address] [place] [id number] Professor Of Geology: Bala Skelton MD Erythrocyte distribution width (RBC) [Ratio] 13.4 % Normal 11.8-14.4 [facility] Comment on above: Performed By: #### A NAX, IFX, PHEP, FKLLC, PE #### [place] [address] Professor Of Geology: Bala Skelton MD Hematocrit (Bld) [Volume fraction] 29.5 % Low 36.3-47.1 [facility] Comment on above: Performed By: #### A NAX, IFX, PHEP, FKLLC, PE #### [facility] [employer] [address] [place] [id number] Professor Of Geology: Bala Skelton MD Hemoglobin (Bld) [Mass/Vol] 10.1 g/dL Low 11.9-15.1 [facility] Comment on above: Performed By: #### A NAX, IFX, PHEP, FKLLC, PE #### [facility] [employer] [address] [place] [phone] Professor Of Geology: Bala Skelton MD Immature granulocytes/100 WBC (Bld) 1 % High 0 [facility] Comment on above: Performed By: #### A NAX, IFX, PHEP, FKLLC, PE #### [facility] [employer] [address] [place] [id number] Professor Of Geology: Bala Skelton MD Lymphocytes (Bld) [#/Vol] 2.26 10*3/uL Normal 1.10-3.70 [facility] Comment on above: Performed By: #### A NAX, IFX, PHEP, FKLLC, PE #### [address] [address] Professor Of Geology: Bala Skelton MD Lymphocytes/100 WBC (Bld) 27 % Normal 24-43 [facility] Comment on above: Performed By: #### A NAX, IFX, PHEP, FKLLC, PE #### [address] [address] Professor Of Geology: Bala Skelton MD MCH (RBC) [Entitic mass] 29.3 pg Normal 25.2-33.5 [facility] Comment on above: Performed By: #### A NAX, IFX, PHEP, FKLLC, PE #### [address] [address] Professor Of Geology: Bala Skelton MD MCHC (RBC) [Mass/Vol] 34.2 g/dL Normal 28.4-34.8 [facility] Comment on above: Performed By: #### A NAX, IFX, PHEP, FKLLC, PE #### [address] [address] Professor Of Geology: Bala Skelton MD MCV (RBC) [Entitic vol] 85.5 fL Normal 82.6-102.9 [facility] Comment on above: Performed By: #### A NAX, IFX, PHEP, FKLLC, PE #### [address] [address] Professor Of Geology: Bala Skelton MD Monocytes (Bld) [#/Vol] 0.65 10*3/uL Normal 0.10-1.20 [facility] Comment on above: Performed By: #### A NAX, IFX, PHEP, FKLLC, PE #### [address] [address] Professor Of Geology: Bala Skelton MD Monocytes/100 WBC (Bld) 8 % Normal 3-12 [facility] Comment on above: Performed By: #### A NAX, IFX, PHEP, FKLLC, PE #### [address] [address] Professor Of Geology: Bala Skelton MD Neutrophil (Seg) 59 % Normal 36-65 [facility] Comment on above: Performed By: #### A NAX, IFX, PHEP, FKLLC, PE #### [address] [address] Professor Of Geology: Bala Skelton MD NRBC Automated 0.0 per 100 WBC Normal 0.0 [facility] Comment on above: Performed By: #### A NAX, IFX, PHEP, FKLLC, PE #### [address] [address] Professor Of Geology: Bala Skelton MD Platelet mean volume (Bld) [Entitic vol] 9.5 fL Normal 8.1-13.5 [facility] Comment on above: Performed By: #### A NAX, IFX, PHEP, FKLLC, PE #### [address] [address] Professor Of Geology: Bala Skelton MD Platelets (Bld) [#/Vol] 311 10*3/uL Normal 138-453 [facility] Comment on above: Performed By: #### A NAX, IFX, PHEP, FKLLC, PE #### [address] [address] Professor Of Geology: Bala Skelton MD RBC (Bld) [#/Vol] 3.45 10*6/uL Low 3.95-5.11 [facility] Comment on above: Performed By: #### A NAX, IFX, PHEP, FKLLC, PE #### [facility] [address] [place], [place] [id number] Professor Of Geology: Bala Skelton MD WBC (Bld) [#/Vol] 8.3 10*3/uL Normal 3.5-11.3 [facility] Comment on above: Performed By: #### A NAX, IFX, PHEP, FKLLC, PE #### [facility] [address] [place], [place] [id number] Professor Of Geology: Bala Skelton MD IR GUIDED NEPHROURETERAL CAT H REMOVE/REPLACEon 07-26-2022 1. Successful left nephroureteral stent exchange. [facility] Bishnu Wright MD - 07/26/2022 PROCEDURE: IR [...] detailed explanation of the procedure including risks. Campo protocol was observed. Sterile gowns, masks, hats and gloves utilized for maximal sterile barrier. The patient was placed in the prone position on the fluoroscopy table, and the existing left nephroureteral stent and flank were prepped and draped in sterile manner. The stent tubing was noted to be broken with the lumen exposed near the level of the skin. A tomato pulper operator image demonstrated the distal loop approximating [...] wire. Under fluoroscopic guidance, a new 8 Italian x 22 cm nephroureteral stent was advanced over the wire; the distal loop formed in the bladder, but the proximal loop did not form in the renal pelvis. Therefore, this catheter was removed over wire, and a new 8 Italian x 24 cm nephroureteral stent was advanced [...] IMPRESSION: 1. Successful left nephroureteral stent exchange. [facility] Work Phone: Radiology Study observation (narrative) [facility] Phone: IR GUIDED NEPHROURETERAL CAT H REMOVE/REPLACEOrdered By: Bishnu Alan on 07-26-2022 [facility] [employer] Work Phone: No Panel Informationon 07-26 [facility] [employer] POC Glucose Fingerstickon Glucose [Mass/Vol] 185 mg/dL High 65 - 105 mg/dL [facility] [employer] Interpretation and review of laboratory results Abnormal [facility] [employer] [facility] [employer] PTon 07-26-2022 INR Coag (PPP) [Relative time] 0.9 {INR} Normal [facility] Comment on above: Result Comment: Therapeutic Range: Moderate Anticoagulant Intensity: INR = 2.0-3.0 High Anticoagulant Intensity: INR = 2.5-3.5 Performed By: #### A NAX, IFX, PHEP, FKLLC, PE #### [facility] [employer] [address] [place] [phone] Professor Of Geology: Bala Skelton MD PT Coag (PPP) [Time] 9.4 s Normal 9.1-12.3 [facility] Comment on above: Performed By: #### A NAX, IFX, PHEP, FKLLC, PE #### [facility] [employer] [address] [place] [id number] Professor Of Geology: Bala Skelton MD [employer]-INRon 07-26-2022 INR Coag (Bld) [Relative time] 0.9 {INR} [facility] Comment on above: Therapeutic Range: Moderate Anticoagulant Intensity: INR = 2.0-3.0 High Anticoagulant Intensity: INR = 2.5-3.5 PT Coag (PPP) [Time] 9.4 s [facility] Cult, Bloodon 07-25-2022 Cult, Blood Specimen Description .BLOOD Special Requests LEFT FOREARM 5ML Culture NO GROWTH 5 DAYS Report Status FINAL 07/25/2022 [facility] Comment on above: Performed By: #### B C #### [address] [id number] Professor Of Geology: Bala Skelton MD Cult,Bloodon 07-25-2022 Cult,Blood Specimen Description .BLOOD Special Requests LT WRIST 2.5ML Culture NO GROWTH 5 DAYS Report Status FINAL 07/25/2022 [facility] Comment on above: Performed By: #### B C #### [address] [phone] Professor Of Geology: Bala Skelton MD Cult,Blood Specimen Description .BLOOD Special Requests RT WRIST 2.5ML Culture NO GROWTH 5 DAYS Report Status FINAL 07/25/2022 [facility] Comment on above: Performed By: #### A NAX, IFX, PHEP, FKLLC, PE #### [facility] [employer] [address] [place] [phone] Professor Of Geology: Bala Skelton MD Cult,Blood Specimen Description .BLOOD Special Requests 2ML Culture NO GROWTH 5 DAYS Report Status FINAL 07/25/2022 [facility] Comment on above: Performed By: #### A NAX, IFX, PHEP, FKLLC, PE #### [facility] [address] [place] [address] Professor Of Geology: Bala Skelton MD XR ABDOMEN (KUB) (SINGLE [...] Bry Foreman MD 07/25/22 Final result Normal [facility] Left PCNU in place. There is questionable discontinuity of the retroperitoneal or body wall portion of the catheter. This may be artifactual related to bowel gas. Recommend repeat exam or CT. [facility] RIS CONSOLIDATED EXAMINATION: ONE SUPINE XRAY VIEW(S) [...] of the catheter. No gross bony abnormality. [facility] CONSOLIDATED Bry Foreman MD - [...] bowel gas. Recommend repeat exam or CT. [facility] [employer] Phone: Radiology Study observation (narrative) [employer] Phone: XR ABDOMEN (KUB) (SINGLE AP VIEW)Ordered By: Bry Foreman on 07-25-2022 [facility] [employer] Phone: Cult,Bloodon 07-23-2022 Cult,Blood Specimen Description .BLOOD Special Requests R FOREARM 10 ML Culture NO GROWTH 5 DAYS Report Status FINAL 07/23/2022 Normal [facility] Comment on above: Performed By: #### A NAX, IFX, PHEP, FKLLC, PE #### [facility] [address] [place] [address] Professor Of Geology: Bala Skelton MD Cult,Blood Specimen Description .BLOOD Special Requests L WRIST 10 ML Culture NO GROWTH 5 DAYS Report Status FINAL 07/23/2022 [facility] Comment on above: Performed By: #### L ACTIC #### [facility] [employer] [address] [place] [address] Professor Of Geology: Bala Skelton MD ALEXANDRE Screen w/reflexon 2021 ALEXANDRE Screen Negative Normal NEG [facility] Comment on above: Performed By: #### A NAX, IFX, PHEP, FKLLC, PE #### [facility] [address] [place] [address] Professor Of Geology: Bala Skelton MD Anti-dsDNA 2.1 IU/mL Normal <10.0 [facility] Comment on above: Result Comment: Reference Range: <10.0 Negative 10.0-15.0 Equivocal >15.0 Positive Performed By: #### A NAX, IFX, PHEP, FKLLC, PE #### [facility] [place] [address] Professor Of Geology: Bala Skelton MD MICKIE Screen 0.1 U/mL Normal <0.7 [facility] Comment on above: Result Comment: Reference Range: <0.7 Negative 0.7-1.0 Equivocal >1.0 Positive MICKIE Screen includes U1RNP,RNP70,Sm,Ro(SS-A),La(SS-B),CENP,Scl-70,Gina-1 Performed By: #### A NAX, IFX, PHEP, FKLLC, PE #### [facility] [place] [address] Professor Of Geology: Bala Skelton MD ALEXANDRE Screen with Reflexon Anti ds DNA 2.1 NINF [facility] Comment on above: Reference Range: <10.0 Negative 10.0-15.0 Equivocal >15.0 Positive MICKIE Antibodies Screen 0.1 U/mL [facility] - 0.7 U/mL [facility] Comment on above: Reference Range: <0.7 Negative 0.7-1.0 Equivocal >1.0 Positive MICKIE Screen includes U1RNP,RNP70,Sm,Ro(SS-A),La(SS-B),CENP,Scl-70,Gina-1 Nuclear Ab IF (S) [Titer] Negative NEGATIVE [facility] Basic Metab w/rfx MGon 07-22 (cont.) Normal [facility] Comment on above: Result Comment: Aver age GFR for 50-59 years old: 93 mL/min/1.73sq m Chronic Kidney Disease: <60 mL/min/1.73sq m Kidney failure: <15 mL/min/1.73sq m eGFR calculated using average adult body mass. Additional eGFR calculator available at: http://www.Simtrol.Magoosh/multiple_crcl_2012.htm Performed By: #### A NAX, IFX, PHEP, FKLLC, PE #### [address] [address] Professor Of Geology: Bala Skelton MD Anion gap [Moles/Vol] 12 mmol/L Normal 9-17 [facility] Comment on above: Performed By: #### A NAX, IFX, PHEP, FKLLC, PE #### [address] [address] Professor Of Geology: Bala Skelton MD Calcium [Mass/Vol] 8.5 mg/dL Low 8.6-10.4 [facility] Comment on above: Performed By: #### A NAX, IFX, PHEP, FKLLC, PE #### [address] [address] Professor Of Geology: Bala Skelton MD Chloride [Moles/Vol] 101 mmol/L Normal 98-107 [facility] Comment on above: Performed By: #### A NAX, IFX, PHEP, FKLLC, PE #### [address] [address] Professor Of Geology: Bala Skelton MD CO2 [Moles/Vol] 25 mmol/L Normal 20-31 [facility] Comment on above: Performed By: #### A NAX, IFX, PHEP, FKLLC, PE #### [address] [address] Professor Of Geology: Bala Skelton MD Creatinine [Mass/Vol] 1.06 mg/dL High 0.50-0.90 [facility] Comment on above: Performed By: #### A NAX, IFX, PHEP, FKLLC, PE #### [address] [address] Professor Of Geology: Bala Skelton MD GFR, Amer >60 Normal >60 [facility] Comment on above: Performed By: #### A NAX, IFX, PHEP, FKLLC, PE #### [facility] [address] [place] [address] Professor Of Geology: Bala Skelton MD GFR,non Amer 55 mL/min Low >60 [facility] Comment on above: Performed By: #### A NAX, IFX, PHEP, FKLLC, PE #### [facility] [employer] [address] [place] [address] Professor Of Geology: Bala Skelton MD Glucose [Mass/Vol] 172 mg/dL High 70-99 [facility] Comment on above: Performed By: #### A NAX, IFX, PHEP, FKLLC, PE #### [facility] [employer] [address] [place] [address] Professor Of Geology: Bala Skelton MD Potassium [Moles/Vol] 4.1 mmol/L Normal 3.7-5.3 [facility] Comment on above: Performed By: #### A NAX, IFX, PHEP, FKLLC, PE #### [facility] [employer] [address] [place] [address] Professor Of Geology: Bala Skelton MD Sodium [Moles/Vol] 138 mmol/L Normal 135-144 [facility] Comment on above: Performed By: #### A NAX, IFX, PHEP, FKLLC, PE #### [facility] [employer] [address] [place] [address] Professor Of Geology: Bala Skelton MD Urea nitrogen [Mass/Vol] 24 mg/dL High 6-20 [facility] Comment on above: Performed By: #### A NAX, IFX, PHEP, FKLLC, PE #### [facility] [employer] [address] [place] [address] Professor Of Geology: Bala Skelton MD Basic Metabolic Panel w/ Ref romulo to MGon 07-22-2022 Anion gap [Moles/Vol] 12 mmol/L 9 - 17 mmol/L [facility] [employer] Calcium [Mass/Vol] 8.5 mg/dL Low 8.6 - 10. 4 mg/dL [facility] Chloride [Moles/Vol] 101 mmol/L 98 - 10 7 mmol/L [facility] [employer] CO2 [Moles/Vol] 25 mmol/L 20 - 31 mmol/L [facility] Creatinine [Mass/Vol] 1.06 mg/dL High 0.5 - 0.9 mg/dL [facility] GFR >60 60 - PI NF mL/min [facility] [employer] GFR Non- 55 mL/min Low 60 - PINF mL/min [facility] GFR/1.73 sq M.predicted MDRD (S/P/Bld) [Vol rate/Area] [facility] [employer] Comment on above: Average GFR for 50-5 9 years old: 93 mL/min/1.73sq m Chronic Kidney Disease: <60 mL/min/1.73sq m Kidney failure: <15 mL/min/1.73sq m eGFR calculated using average adult body mass. Additional eGFR calculator available at: http://www.itembase/multiple_crcl_2012.htm Glucose [Mass/Vol] 172 mg/dL High 70 - 99 mg/dL [facility] [employer] Interpretation and review of laboratory results Abnormal [facility] Potassium [Moles/Vol] 4.1 mmol/L 3.7 - 5.3 mmol/L [facility] Sodium [Moles/Vol] 138 mmol/L 135 - 144 mmol/L [facility] Urea nitrogen (BldV) [Mass/Vol] 24 mg/dL High 6 - 20 mg/dL [facility] [employer] Electrophoresis Protein, Ser on 07-22-2022 Albumin % 57 % 45 - 65 % [facility] [employer] Albumin [Mass/Vol] 3.6 g/dL 3.2 - 5.2 g/dL [facility] [employer] Alpha 1 % 4 % 3 - 6 % [facility] [employer] Alpha 2 % 15 % High 6 - 13 % [facility] Ygnmo-8-Aqbutwbd 0.2 g/dL 0.1 - 0.4 g/dL [facility] Uhrxb-6-Aergzsaq 0.9 g/dL 0.5 - 0.9 g/dL [facility] Beta Globulin 0.9 g/dL 0.5 - 1.1 g/dL [facility] Beta Percent 14 % 11 - 19 % [facility] Free PSA/Total PSA [Mass fraction] 6.3 g/dL Low 6.4 - 8.3 g/dL [facility] Gamma Globulin 0.6 g/dL 0.5 - 1.5 g/dL [facility] Gamma Globulin % 10 % 9 - 20 % [facility] Interpretation and review of laboratory results Abnormal [facility] Pathologist Cyto stain Nom (Cvx/Vag) [ID] Reviewed by pathologist: Mary Stovall M.D. [facility] Protein Electrophoresis, Serum NORMAL ELECTROPHORETIC PATTERN [facility] Comment on above: IMMUNOFIXATION IS NE GATIVE FOR MONOCLONAL IMMUNOGLOBULIN. Total Prot. Sum 6.2 g/dL Low 6.3 - 8.2 g/dL [facility] Total Prot. Sum,% 100 % 98 - 102 % [facility] Hepatitis Acute [facility] 07-22 Hep A Ab,IgM Non-Reactive Normal [facility] Comment on above: Performed By: #### A NAX, IFX, PHEP, FKLLC, PE #### [facility] [address] [place], [place] [phone] Professor Of Geology: Bala Skelton MD Hep B Core Ab,IgM Non-Reactive Normal [facility] Comment on above: Performed By: #### A NAX, IFX, PHEP, FKLLC, PE #### [facility] [address] [place], [place] [phone] Professor Of Geology: Bala Skelton MD Hep B Surf Ag Non-Reactive Normal [facility] Comment on above: Performed By: #### A NAX, IFX, PHEP, FKLLC, PE #### [facility] [employer] [address] [place], [place] [phone] Professor Of Geology: Bala Skelton MD Hep C Ab Non-Reactive Normal [facility] Comment on above: Result Comment: The [...] A NAX, IFX, PHEP, FKLLC, PE #### [facility] [employer] [address] [place], [place] [phone] Professor Of Geology: Bala Skelton MD Hepatitis Panel, Acuteon HAV IgM IA Qn (S) Non-Reactive NONREACTIVE [facility] Hep B Core Ab, IgM Non-Reactive NONREACTIVE [facility] Hepatitis B Surface Ag Non-Reactive NONREACTIVE [facility] Hepatitis C Ab Non-Reactive NONREACTIVE [facility] Comment on above: The hepatitis C [...] recommended by ordering HCV RNA by PCR. [facility] Immunofixation serum profile on 07-22-2022 Pathologist Cyto stain Nom (Cvx/Vag) [ID] Reviewed by pathologist: Mary Stovall M.D. [facility] Serum IFX Interp IMMUNOFIXATION IS NEGATIVE FOR MONOCLONAL IMMUNOGLOBULIN. [facility] Immun[employer] urine random profileon 07-22-2022 Protein (U) [Mass/Vol] 144 mg/dL [facility] Urine IFX Interp IMMUNOFIXATION IS NEGATIVE FOR MONOCLONAL IMMUNOGLOBULIN. [facility] Urine IFX Specimen .URINE [facility] Immunofixation,Bloodon 07-22 IFX - Interpret. IMMUNOFIXATION IS NEGATIVE FOR MONOCLONAL IMMUNOGLOBULIN. Normal [facility] Comment on above: Performed By: #### A NAX, IFX, PHEP, FKLLC, PE #### [facility] [address] [place] [address] Professor Of Geology: Bala Skelton MD Pathologist Review: Reviewed by pathologist: Mary Stovall M.D. [facility] Comment on above: Performed By: #### A NAX, IFX, PHEP, FKLLC, PE #### [facility] [address] [place] [address] Professor Of Geology: Bala Skelton MD Immunofixation,Urineon 07-22 Ur. IFX-Interpret IMMUNOFIXATION IS NEGATIVE FOR MONOCLONAL IMMUNOGLOBULIN. Normal [facility] Comment on above: Performed By: #### A NAX, IFX, PHEP, FKLLC, PE #### [facility] [address] [place] [address] Professor Of Geology: Bala Skelton MD Lactic Acidon 07-22-2022 Lactic Acid,Whole Bl 1.9 mmol/L Normal 0.7-2.1 [facility] Comment on above: Performed By: #### A NAX, IFX, PHEP, FKLLC, PE #### [facility] [address] [place] [address] Professor Of Geology: Bala Skelton MD Lactic Acid, Whole Blood 1.9 mmol/L 0.7 - 2.1 mmol/L [facility] Lactic Acid,Whole Bl 2.3 mmol/L High 0.7-2.1 [facility] Comment on above: Performed By: #### L ACTIC #### [facility] [address] [place] [address] Professor Of Geology: Bala Skelton MD Interpretation and review of laboratory results Abnormal [facility] Lactic Acid, Whole Blood 2.3 mmol/L High 0.7 - 2.1 mmol/L [facility] POC Glucose F[employer] Glucose [Mass/Vol] 164 mg/dL High 65 - 105 mg/dL [facility] Interpretation and review of laboratory results Abnormal [facility] Glucose [Mass/Vol] 177 mg/dL High 65 - 105 mg/dL [facility] Interpretation and review of laboratory results Abnormal [facility] Prot. Electroph, Blon 2021 Pathologist Review: Reviewed by pathologist: Mary Stovall M.D. Normal [facility] Comment on above: Performed By: #### A NAX, IFX, PHEP, FKLLC, PE #### [address] [phone] Professor Of Geology: Bala Skelton MD Prot. Elect-Interp NORMAL ELECTROPHORET IC PATTERN Normal [facility] Comment on above: Result Comment: IMMU NOFIXATION IS NEGATIVE FOR MONOCLONAL IMMUNOGLOBULIN. Performed By: #### A NAX, IFX, PHEP, FKLLC, PE #### [address] [address] Professor Of Geology: Bala Skelton MD Total Prot. Sum 6.2 g/dL Low 6.3-8.2 [facility] Comment on above: Performed By: #### A NAX, IFX, PHEP, FKLLC, PE #### [address] [address] Professor Of Geology: Bala Skelton MD Total Prot. Sum,% 100 % Normal 98-102 [facility] Comment on above: Performed By: #### A NAX, IFX, PHEP, FKLLC, PE #### [address] [address] Professor Of Geology: Bala Skelton MD Prot. Electrophoresis, Uron 07-22-2022 Pathologist Review: Reviewed by pathologist: Mary Stovall M.D. Normal [facility] Comment on above: Performed By: #### A NAX, IFX, PHEP, FKLLC, PE #### [facility] [address] [place] [address] Professor Of Geology: Bala Skelton MD Ur.-Prot.Elect-Inter ELEVATED PROTEIN CONCENTRATION. MOST SERUM PROTEINS ARE DETECTED IN THIS URINE. Normal [facility] Comment on above: Result Comment: USUA LLY OBSERVED WITH MARKEDLY INCREASED NON-SELECTIVE GLOMERULAR PERMEABILITY (i.e. SEVERE GLOMERULAR DISEASE), CONTAMINATION OF URINE WITH BLOOD, OR A COMBINATION OF THESE. A DECREASE IN TUBULAR FUNCTION CANNOT BE RULED OUT. IMMUNOFIXATION IS NEGATIVE FOR MONOCLONAL IMMUNOGLOBULIN. Performed By: #### A NAX, IFX, PHEP, FKLLC, PE #### [facility] [employer] [address] [place], [place] [phone] Professor Of Geology: Bala Skelton MD Protein Electrophoresis, Uri neon 07-22-2022 P E Interpretation, U ELEVATED PROTEIN CONCENTRATION. MOST SERUM PROTEINS ARE DETECTED IN THIS URINE. USUALLY OBSERVED WITH MARKEDLY INCREASED NON-SELECTIVE GLOMERULAR PERMEABILITY (i.e. SEVERE GLOMERULAR DISEASE), CONTAMINATION OF [facility] [employer] Comment on above: URINE WITH BLOOD, OR A COMBINATION OF THESE. A DECREASE IN TUBULAR FUNCTION CANNOT BE RULED OUT. IMMUNOFIXATION IS NEGATIVE FOR MONOCLONAL IMMUNOGLOBULIN. Pathologist Reviewed by pathologist: Mary Stovall M.D. [employer] Protein (U) [Mass/Vol] 144 mg/dL [employer] Specimen Type .URINE [facility] Basic Metab w/rfx MGon 07-21 (cont.) Normal [facility] Comment on above: Result Comment: Aver age GFR for 50-59 years old: 93 mL/min/1.73sq m Chronic Kidney Disease: <60 mL/min/1.73sq m Kidney failure: <15 mL/min/1.73sq m eGFR calculated using average adult body mass. Additional eGFR calculator available at: http://www.Simtrol.Magoosh/multiple_crcl_2012.htm Performed By: #### A NAX, IFX, PHEP, FKLLC, PE #### [facility] [employer] [address] [place] [address] Professor Of Geology: Bala Skelton MD Anion gap [Moles/Vol] 12 mmol/L Normal 9-17 [facility] Comment on above: Performed By: #### A NAX, IFX, PHEP, FKLLC, PE #### [facility] [address] [place] [address] Professor Of Geology: Bala Skelton MD Calcium [Mass/Vol] 8.3 mg/dL Low 8.6-10.4 [facility] Comment on above: Performed By: #### A NAX, IFX, PHEP, FKLLC, PE #### [facility] [employer] [address] [place] [address] Professor Of Geology: Bala Skelton MD Chloride [Moles/Vol] 101 mmol/L Normal 98-107 [facility] Comment on above: Performed By: #### A NAX, IFX, PHEP, FKLLC, PE #### [facility] [employer] [address] [place] [address] Professor Of Geology: Bala Skelton MD CO2 [Moles/Vol] 23 mmol/L Normal 20-31 [facility] Comment on above: Performed By: #### A NAX, IFX, PHEP, FKLLC, PE #### [facility] [address] [place] [address] Professor Of Geology: Bala Skelton MD Creatinine [Mass/Vol] 1.00 mg/dL High 0.50-0.90 [facility] Comment on above: Performed By: #### A NAX, IFX, PHEP, FKLLC, PE #### [facility] [employer] [address] [place] [address] Professor Of Geology: Bala Skelton MD GFR, Amer >60 Normal >60 [facility] Comment on above: Performed By: #### A NAX, IFX, PHEP, FKLLC, PE #### [address] [address] Professor Of Geology: Bala Skelton MD GFR,non Amer 59 mL/min Low >60 [facility] Comment on above: Performed By: #### A NAX, IFX, PHEP, FKLLC, PE #### [address] [address] Professor Of Geology: Bala Skelton MD Glucose [Mass/Vol] 157 mg/dL High 70-99 [facility] Comment on above: Performed By: #### A NAX, IFX, PHEP, FKLLC, PE #### [address] [address] Professor Of Geology: Bala Skelton MD Potassium [Moles/Vol] 3.7 mmol/L Normal 3.7-5.3 [facility] Comment on above: Performed By: #### A NAX, IFX, PHEP, FKLLC, PE #### [address] [address] Professor Of Geology: Bala Skelton MD Sodium [Moles/Vol] 136 mmol/L Normal 135-144 [facility] Comment on above: Performed By: #### A NAX, IFX, PHEP, FKLLC, PE #### [address] [address] Professor Of Geology: Bala Skelton MD Urea nitrogen [Mass/Vol] 26 mg/dL High 6-20 [facility] Comment on above: Performed By: #### A NAX, IFX, PHEP, FKLLC, PE #### [address] [address] Professor Of Geology: Bala Skelton MD (cont.) [facility] Comment on above: Result Comment: Aver age GFR for 50-59 years old: 93 mL/min/1.73sq m Chronic Kidney Disease: <60 mL/min/1.73sq m Kidney failure: <15 mL/min/1.73sq m eGFR calculated using average adult body mass. Additional eGFR calculator available at: http://www.itembase/multiple_crcl_2012.htm Performed By: #### B C #### [address] [address] Professor Of Geology: Bala Skelton MD Anion gap [Moles/Vol] 13 mmol/L Normal 9-17 [facility] Comment on above: Performed By: #### B C #### [address] [address] Professor Of Geology: Bala Skelton MD Calcium [Mass/Vol] 8.1 mg/dL Low 8.6-10.4 [facility] Comment on above: Performed By: #### B C #### [address] [address] Professor Of Geology: Bala Skelton MD Chloride [Moles/Vol] 101 mmol/L Normal 98-107 [facility] Comment on above: Performed By: #### B C #### [address] [address] Professor Of Geology: Bala Skelton MD CO2 [Moles/Vol] 20 mmol/L Normal 20-31 [facility] Comment on above: Performed By: #### B C #### [address] [address] Professor Of Geology: Bala Skelton MD Creatinine [Mass/Vol] 1.28 mg/dL High 0.50-0.90 [facility] Comment on above: Performed By: #### B C #### [facility] [address] [place] [address] Professor Of Geology: Bala Skelton MD GFR, Amer 54 mL/min Low >60 [facility] Comment on above: Performed By: #### B C #### [address] [address] Professor Of Geology: Bala Skelton MD GFR,non Amer 44 mL/min Low >60 [facility] Comment on above: Performed By: #### B C #### [address] [address] Professor Of Geology: Bala Skelton MD Glucose [Mass/Vol] 224 mg/dL High 70-99 [facility] Comment on above: Performed By: #### B C #### [address] [address] Professor Of Geology: Bala Skelton MD Potassium [Moles/Vol] 3.8 mmol/L Normal 3.7-5.3 [facility] Comment on above: Performed By: #### B C #### [address] [address] Professor Of Geology: Bala Skelton MD Sodium [Moles/Vol] 134 mmol/L Low 135-144 [facility] Comment on above: Performed By: #### B C #### [address] [address] Professor Of Geology: Bala Skelton MD Urea nitrogen [Mass/Vol] 28 mg/dL High 6-20 [facility] Comment on above: Performed By: #### B C #### [address] [address] Professor Of Geology: Bala Skelton MD Anion gap [Moles/Vol] 13 mmol/L Normal 9-17 [facility] Comment on above: Performed By: #### A NAX, IFX, PHEP, FKLLC, PE #### [address] [address] Professor Of Geology: Bala Skelton MD Sodium [Moles/Vol] 131 mmol/L Low 135-144 [facility] Comment on above: Performed By: #### A NAX, IFX, PHEP, FKLLC, PE #### [address] [address] Professor Of Geology: Bala Skelton MD (cont.) Normal [facility] Comment on above: Result Comment: Aver age GFR for 50-59 years old: 93 mL/min/1.73sq m Chronic Kidney Disease: <60 mL/min/1.73sq m Kidney failure: <15 mL/min/1.73sq m eGFR calculated using average adult body mass. Additional eGFR calculator available at: http://www.itembase/multiple_crcl_2012.htm Performed By: #### A NAX, IFX, PHEP, FKLLC, PE #### [address] [address] Professor Of Geology: Bala Skelton MD Calcium [Mass/Vol] 8.4 mg/dL Low 8.6-10.4 [facility] Comment on above: Performed By: #### A NAX, IFX, PHEP, FKLLC, PE #### [address] [address] Professor Of Geology: Bala Skelton MD Chloride [Moles/Vol] 100 mmol/L Normal 98-107 [facility] Comment on above: Performed By: #### A NAX, IFX, PHEP, FKLLC, PE #### [address] [address] Professor Of Geology: Bala Skelton MD CO2 [Moles/Vol] 18 mmol/L Low 20-31 [facility] Comment on above: Performed By: #### A NAX, IFX, PHEP, FKLLC, PE #### [address] [address] Professor Of Geology: Bala Skelton MD Creatinine [Mass/Vol] 1.37 mg/dL High 0.50-0.90 [facility] Comment on above: Performed By: #### A NAX, IFX, PHEP, FKLLC, PE #### [facility] [address] [place] [address] Professor Of Geology: Bala Skelton MD GFR, Amer 49 mL/min Low >60 [facility] Comment on above: Performed By: #### A NAX, IFX, PHEP, FKLLC, PE #### [address] [address] Professor Of Geology: Bala Skelton MD GFR,non Amer 41 mL/min Low >60 [facility] Comment on above: Performed By: #### A NAX, IFX, PHEP, FKLLC, PE #### [address] [address] Professor Of Geology: Bala Skelton MD Glucose [Mass/Vol] 184 mg/dL High 70-99 [facility] Comment on above: Performed By: #### A NAX, IFX, PHEP, FKLLC, PE #### [facility] [employer] [address] [place] [address] Professor Of Geology: Bala Skelton MD Potassium [Moles/Vol] 3.8 mmol/L Normal 3.7-5.3 [facility] Comment on above: Performed By: #### A NAX, IFX, PHEP, FKLLC, PE #### [facility] [employer] [address] [place] [address] Professor Of Geology: Bala Skelton MD Urea nitrogen [Mass/Vol] 27 mg/dL High 6-20 [facility] Comment on above: Performed By: #### A NAX, IFX, PHEP, FKLLC, PE #### [facility] [address] [phone] Professor Of Geology: Bala Skelton MD Basic Metabolic Panel w/ Ref romulo to MGon 07-21-2022 Anion gap [Moles/Vol] 12 mmol/L 9 - 17 mmol/L [facility] Calcium [Mass/Vol] 8.3 mg/dL Low 8.6 - 10. 4 mg/dL [facility] Chloride [Moles/Vol] 101 mmol/L 98 - 10 7 mmol/L [facility] [employer] CO2 [Moles/Vol] 23 mmol/L 20 - 31 mmol/L [facility] Creatinine [Mass/Vol] 1 mg/dL High 0.5 - 0.9 mg/dL [facility] GFR >60 60 - PI NF mL/min [employer] [facility] GFR Non- 59 mL/min Low 60 - PINF mL/min [employer] [facility] GFR/1.73 sq M.predicted MDRD (S/P/Bld) [Vol rate/Area] [facility] [employer] Comment on above: Average GFR for 50-5 9 years old: 93 mL/min/1.73sq m Chronic Kidney Disease: <60 mL/min/1.73sq m Kidney failure: <15 mL/min/1.73sq m eGFR calculated using average adult body mass. Additional eGFR calculator available at: http://www.Simtrol.Magoosh/multiple_crcl_2012.htm Glucose [Mass/Vol] 157 mg/dL High 70 - 99 mg/dL [facility] Interpretation and review of laboratory results Abnormal [facility] Potassium [Moles/Vol] 3.7 mmol/L 3.7 - 5.3 mmol/L [facility] Sodium [Moles/Vol] 136 mmol/L 135 - 144 mmol/L [facility] Urea nitrogen (BldV) [Mass/Vol] 26 mg/dL High 6 - 20 mg/dL [facility] Anion gap [Moles/Vol] 13 mmol/L 9 - 17 mmol/L [facility] Calcium [Mass/Vol] 8.1 mg/dL Low 8.6 - 10. 4 mg/dL [facility] Chloride [Moles/Vol] 101 mmol/L 98 - 10 7 mmol/L [facility] CO2 [Moles/Vol] 20 mmol/L 20 - 31 mmol/L [facility] Creatinine [Mass/Vol] 1.28 mg/dL High 0.5 - 0.9 mg/dL [facility] GFR 54 mL/min Low 60 - PI NF mL/min [facility] GFR Non- 44 mL/min Low 60 - PINF mL/min [facility] GFR/1.73 sq M.predicted MDRD (S/P/Bld) [Vol rate/Area] [facility] Comment on above: Average GFR for 50-5 9 years old: 93 mL/min/1.73sq m Chronic Kidney Disease: <60 mL/min/1.73sq m Kidney failure: <15 mL/min/1.73sq m eGFR calculated using average adult body mass. Additional eGFR calculator available at: http://www.itembase/multiple_crcl_2011.htm Glucose [Mass/Vol] 224 mg/dL High 70 - 99 mg/dL [facility] Interpretation and review of laboratory results Abnormal [facility] Potassium [Moles/Vol] 3.8 mmol/L 3.7 - 5.3 mmol/L [facility] Sodium [Moles/Vol] 134 mmol/L Low 135 - 144 mmol/L [facility] Urea nitrogen (BldV) [Mass/Vol] 28 mg/dL High 6 - 20 mg/dL [facility] Immunofixation,Urineon 07-21 Protein (U) [Mass/Vol] 144 mg/dL Normal [facility] Comment on above: Performed By: #### A NAX, IFX, PHEP, FKLLC, PE #### [facility] [address] [place] [phone] Professor Of Geology: Bala Skelton MD Type of Specimen .URINE Normal [facility] Comment on above: Performed By: #### A NAX, IFX, PHEP, FKLLC, PE #### [facility] [address] [place] [address] [phone] Professor Of Geology: Bala Skelton MD Lactic Acidon 07-21-2022 Lactic Acid,Whole Bl 2.5 mmol/L High 0.7-2.1 [facility] Comment on above: Performed By: #### A NAX, IFX, PHEP, FKLLC, PE #### [facility] [address] [place] [phone] Professor Of Geology: Bala Skelton MD Interpretation and review of laboratory results Abnormal [facility] Lactic Acid, Whole Blood 2.5 mmol/L High 0.7 - 2.1 mmol/L [facility] Lactic Acid,Whole Bl 1.9 mmol/L Normal 0.7-2.1 [facility] Comment on above: Performed By: #### L ACTIC #### [facility] [address] [place] [phone] Professor Of Geology: Bala Skelton MD Lactic Acid, Whole Blood 1.9 mmol/L 0.7 - 2.1 mmol/L [facility] Lactic Acid,Whole Bl 3.0 mmol/L High 0.7-2.1 [facility] Comment on above: Performed By: #### A NAX, IFX, PHEP, FKLLC, PE #### [facility] [address] [place] [address] [phone] Professor Of Geology: Bala Skelton MD Interpretation and review of laboratory results Abnormal [facility] Lactic Acid, Whole Blood 3.0 mmol/L High 0.7 - 2.1 mmol/L [facility] Lactic Acid,Whole Bl 2.2 mmol/L High 0.7-2.1 [facility] Comment on above: Performed By: #### A NAX, IFX, PHEP, FKLLC, PE #### [facility] [address] [place] [address] Professor Of Geology: Bala Skelton MD Interpretation and review of laboratory results Abnormal [facility] Lactic Acid, Whole Blood 2.2 mmol/L High 0.7 - 2.1 mmol/L [facility] POC Glucose Fingerstickon Glucose [Mass/Vol] 210 mg/dL High 65 - 105 mg/dL [facility] Interpretation and review of laboratory results Abnormal [facility] Glucose [Mass/Vol] 142 mg/dL High 65 - 105 mg/dL [facility] Interpretation and review of laboratory results Abnormal [facility] Glucose [Mass/Vol] 227 mg/dL High 65 - 105 mg/dL [facility] Interpretation and review of laboratory results Abnormal [facility] Glucose [Mass/Vol] 219 mg/dL High 65 - 105 mg/dL [facility] Interpretation and review of laboratory results Abnormal [facility] Prot. Electroph, Blon 2021 Albumin [Mass/Vol] 3.6 g/dL Normal 3.2-5.2 [facility] Comment on above: Performed By: #### A NAX, IFX, PHEP, FKLLC, PE #### [facility] [address] [place], [place] [phone] Professor Of Geology: Bala Skelton MD Albumin, % 57 % Normal 45-65 [facility] Comment on above: Performed By: #### A NAX, IFX, PHEP, FKLLC, PE #### [facility] [address] [place], [place] [phone] Professor Of Geology: Bala Skelton MD Ilzsg-9-chhfdwyke 0.2 g/dL Normal 0.1-0.4 [facility] Comment on above: Performed By: #### A NAX, IFX, PHEP, FKLLC, PE #### [address] [address] Professor Of Geology: Bala Skelton MD Pyzeq-6-vfaqyjosa,% 4 % Normal 3-6 [facility] Comment on above: Performed By: #### A NAX, IFX, PHEP, FKLLC, PE #### [address] [phone] Professor Of Geology: Bala Skelton MD Vkens-3-tkgadeivl 0.9 g/dL Normal 0.5-0.9 [facility] Comment on above: Performed By: #### A NAX, IFX, PHEP, FKLLC, PE #### [address] [address] Professor Of Geology: Bala Skelton MD Pdezx-3-buvwhpusu,% 15 % High 6-13 [facility] Comment on above: Performed By: #### A NAX, IFX, PHEP, FKLLC, PE #### [address] [address] Professor Of Geology: Bala Skelton MD Beta-globulins 0.9 g/dL Normal 0.5-1.1 [facility] Comment on above: Performed By: #### A NAX, IFX, PHEP, FKLLC, PE #### [address] [address] Professor Of Geology: Bala Skelton MD Beta-globulins,% 14 % Normal 11-19 [facility] Comment on above: Performed By: #### A NAX, IFX, PHEP, FKLLC, PE #### [address] [phone] Professor Of Geology: Bala Skelton MD Gamma-globulins 0.6 g/dL Normal 0.5-1.5 [facility] Comment on above: Performed By: #### A NAX, IFX, PHEP, FKLLC, PE #### [facility] [address] [place], [place] [phone] Professor Of Geology: Bala Skelton MD Gamma-globulins,% 10 % Normal - [facility] Comment on above: Performed By: #### A NAX, IFX, PHEP, FKLLC, PE #### [facility] [address] [place], [place] [phone] Professor Of Geology: Bala Skelton MD Prot. Electrophoresis, Uron 07-21-2022 Total Protein Conc. 144 mg/dL Normal [facility] Comment on above: Performed By: #### A NAX, IFX, PHEP, FKLLC, PE #### [facility] [address] [place] [address] Professor Of Geology: Bala Skelton MD BLOOD GAS, VENOUSon 07-20-20 22 Carboxyhemoglobin 1.4 % 0 - 5 % [facility] [employer] Comment on above: Reference Range: Non-Smokers 0-2% Average Smoker 2-4% Heavy Smoker <10% FIO2 INFORMATION NOT PROVIDED [facility] [employer] HCO3 (Bld) [Moles/Vol] 19.6 mmol/L Low 24 - 30 mmol/L [facility] [employer] Interpretation and review of laboratory results Abnormal [facility] Negative Base Excess, Olaf 5.6 mmol/L High 0 - 2 mmol/L [facility] [employer] Oxygen saturation in Blood 74.4 % 60 - 85 % [facility] [employer] pCO2, Olaf 39.5 39 - 55 [facility] [employer] pH, Olaf 7.316 Low 7.32 - 7.42 [facility] [employer] pO2, Olaf 36.9 30 - 50 [facility] [employer] Pt Temp 37.0 [facility] Basic Metab w/rfx MGon 07-20 (cont.) Normal [facility] Comment on above: Result Comment: Aver age GFR for 50-59 years old: 93 mL/min/1.73sq m Chronic Kidney Disease: <60 mL/min/1.73sq m Kidney failure: <15 mL/min/1.73sq m eGFR calculated using average adult body mass. Additional eGFR calculator available at: http://www.itembase/multiple_crcl_2012.htm Performed By: #### A NAX, IFX, PHEP, FKLLC, PE #### [facility] [employer] [address] [place] [phone] Professor Of Geology: Bala Skelton MD Anion gap [Moles/Vol] 13 mmol/L Normal 9-17 [facility] Comment on above: Performed By: #### A NAX, IFX, PHEP, FKLLC, PE #### [facility] [employer] [address] [place] [phone] Professor Of Geology: Bala Skelton MD Calcium [Mass/Vol] 8.7 mg/dL Normal 8.6-10.4 [facility] Comment on above: Performed By: #### A NAX, IFX, PHEP, FKLLC, PE #### [facility] [address] [place] [phone] Professor Of Geology: Bala Skelton MD Chloride [Moles/Vol] 97 mmol/L Low 98-107 [facility] Comment on above: Performed By: #### A NAX, IFX, PHEP, FKLLC, PE #### [facility] [address] [place] [phone] Professor Of Geology: Bala Skelton MD CO2 [Moles/Vol] 18 mmol/L Low 20-31 [facility] Comment on above: Performed By: #### A NAX, IFX, PHEP, FKLLC, PE #### [facility] [address] [place] [phone] Professor Of Geology: Bala Skelton MD Creatinine [Mass/Vol] 1.62 mg/dL High 0.50-0.90 [facility] Comment on above: Performed By: #### A NAX, IFX, PHEP, FKLLC, PE #### [facility] [address] [place] [phone] Professor Of Geology: Bala Skelton MD GFR, Amer 41 mL/min Low >60 [facility] Comment on above: Performed By: #### A NAX, IFX, PHEP, FKLLC, PE #### [address] [address] Professor Of Geology: Bala Skelton MD GFR,non Amer 34 mL/min Low >60 [facility] Comment on above: Performed By: #### A NAX, IFX, PHEP, FKLLC, PE #### [facility] [employer] [address] [place] [address] Professor Of Geology: Bala Skelton MD Glucose [Mass/Vol] 360 mg/dL High 70-99 [facility] Comment on above: Performed By: #### A NAX, IFX, PHEP, FKLLC, PE #### [facility] [employer] [address] [place] [phone] Professor Of Geology: Bala Skelton MD Potassium [Moles/Vol] 5.1 mmol/L Normal 3.7-5.3 [facility] Comment on above: Performed By: #### A NAX, IFX, PHEP, FKLLC, PE #### [facility] [employer] [address] [place] [address] Professor Of Geology: Bala Skelton MD Sodium [Moles/Vol] 128 mmol/L Low 135-144 [facility] Comment on above: Performed By: #### A NAX, IFX, PHEP, FKLLC, PE #### [address] [phone] Professor Of Geology: Bala Skelton MD Urea nitrogen [Mass/Vol] 32 mg/dL High 6-20 [facility] Comment on above: Performed By: #### A NAX, IFX, PHEP, FKLLC, PE #### [address] [address] Professor Of Geology: Bala Skelton MD (cont.) Normal [facility] Comment on above: Result Comment: Aver age GFR for 50-59 years old: 93 mL/min/1.73sq m Chronic Kidney Disease: <60 mL/min/1.73sq m Kidney failure: <15 mL/min/1.73sq m eGFR calculated using average adult body mass. Additional eGFR calculator available at: http://www.itembase/multiple_crcl_2011.htm Performed By: #### A NAX, IFX, PHEP, FKLLC, PE #### [address] [address] Professor Of Geology: Bala Skelton MD Anion gap [Moles/Vol] 14 mmol/L Normal 9-17 [facility] Comment on above: Performed By: #### A NAX, IFX, PHEP, FKLLC, PE #### [address] [address] Professor Of Geology: Bala Skelton MD Calcium [Mass/Vol] 8.2 mg/dL Low 8.6-10.4 [facility] Comment on above: Performed By: #### A NAX, IFX, PHEP, FKLLC, PE #### [facility] [employer] [address] [place] [phone] Professor Of Geology: Bala Skelton MD Chloride [Moles/Vol] 96 mmol/L Low 98-107 [facility] Comment on above: Performed By: #### A NAX, IFX, PHEP, FKLLC, PE #### [facility] [address] [place] [address] Professor Of Geology: Bala Skelton MD CO2 [Moles/Vol] 17 mmol/L Low 20-31 [facility] Comment on above: Performed By: #### A NAX, IFX, PHEP, FKLLC, PE #### [facility] [address] [place] [address] Professor Of Geology: Bala Skelton MD Creatinine [Mass/Vol] 1.68 mg/dL High 0.50-0.90 [facility] Comment on above: Performed By: #### A NAX, IFX, PHEP, FKLLC, PE #### [facility] [employer] [address] [place] [address] Professor Of Geology: Bala Skelton MD GFR, Amer 39 mL/min Low >60 [facility] Comment on above: Performed By: #### A NAX, IFX, PHEP, FKLLC, PE #### [address] [address] Professor Of Geology: Bala Skelton MD GFR,non Amer 32 mL/min Low >60 [facility] Comment on above: Performed By: #### A NAX, IFX, PHEP, FKLLC, PE #### [address] [address] Professor Of Geology: Bala Skelton MD Potassium [Moles/Vol] 4.4 mmol/L Normal 3.7-5.3 [facility] Comment on above: Performed By: #### A NAX, IFX, PHEP, FKLLC, PE #### [facility] [employer] [address] [place] [phone] Professor Of Geology: Bala Skelton MD Sodium [Moles/Vol] 127 mmol/L Low 135-144 [facility] Comment on above: Performed By: #### A NAX, IFX, PHEP, FKLLC, PE #### [address] [address] Professor Of Geology: Bala Skelton MD Urea nitrogen [Mass/Vol] 33 mg/dL High 6-20 [facility] Comment on above: Performed By: #### A NAX, IFX, PHEP, FKLLC, PE #### [address] [address] Professor Of Geology: Bala Skelton MD Glucose [Mass/Vol] 427 mg/dL Critically high 70-99 [facility] Comment on above: Performed By: #### A NAX, IFX, PHEP, FKLLC, PE #### [address] [address] Professor Of Geology: Bala Skelton MD Glucose [Mass/Vol] 416 mg/dL Critically high 70-99 [facility] Comment on above: Performed By: #### A NAX, IFX, PHEP, FKLLC, PE #### [address] [address] Professor Of Geology: Bala Skelton MD (cont.) Normal [facility] Comment on above: Result Comment: Aver age GFR for 50-59 years old: 93 mL/min/1.73sq m Chronic Kidney Disease: <60 mL/min/1.73sq m Kidney failure: <15 mL/min/1.73sq m eGFR calculated using average adult body mass. Additional eGFR calculator available at: http://www.Simtrol.com/multiple_crcl_2012.htm Performed By: #### A NAX, IFX, PHEP, FKLLC, PE #### [address] [address] Professor Of Geology: Bala Skelton MD Anion gap [Moles/Vol] 15 mmol/L Normal 9-17 [facility] Comment on above: Performed By: #### A NAX, IFX, PHEP, FKLLC, PE #### [address] [address] Professor Of Geology: Bala Skelton MD Calcium [Mass/Vol] 8.5 mg/dL Low 8.6-10.4 [facility] Comment on above: Performed By: #### A NAX, IFX, PHEP, FKLLC, PE #### [address] [address] Professor Of Geology: Bala Skelton MD Chloride [Moles/Vol] 95 mmol/L Low 98-107 [facility] Comment on above: Performed By: #### A NAX, IFX, PHEP, FKLLC, PE #### [address] [address] Professor Of Geology: Bala Skelton MD CO2 [Moles/Vol] 18 mmol/L Low 20-31 [facility] Comment on above: Performed By: #### A NAX, IFX, PHEP, FKLLC, PE #### [address] [address] Professor Of Geology: Bala Skelton MD Creatinine [Mass/Vol] 2.11 mg/dL High 0.50-0.90 [facility] Comment on above: Performed By: #### A NAX, IFX, PHEP, FKLLC, PE #### [address] [address] Professor Of Geology: Bala Skelton MD GFR, Amer 30 mL/min Low >60 [facility] Comment on above: Performed By: #### A NAX, IFX, PHEP, FKLLC, PE #### [address] [address] Professor Of Geology: Bala Skelton MD GFR,non Amer 25 mL/min Low >60 [facility] Comment on above: Performed By: #### A NAX, IFX, PHEP, FKLLC, PE #### [facility] [address] [place] [address] Professor Of Geology: Bala Skelton MD Potassium [Moles/Vol] 5.0 mmol/L Normal 3.7-5.3 [facility] Comment on above: Performed By: #### A NAX, IFX, PHEP, FKLLC, PE #### [facility] [address] [place], [place] [phone] Professor Of Geology: Bala Skelton MD Sodium [Moles/Vol] 128 mmol/L Low 135-144 [facility] Comment on above: Performed By: #### A NAX, IFX, PHEP, FKLLC, PE #### [facility] [address] [place] [address] [phone] Professor Of Geology: Bala Skelton MD Urea nitrogen [Mass/Vol] 38 mg/dL High 6-20 [facility] Comment on above: Performed By: #### A NAX, IFX, PHEP, FKLLC, PE #### [facility] [address] [place] [address] [phone] Professor Of Geology: Bala Skelton MD Basic Metabolic Panelon 07-07 Anion gap [Moles/Vol] 16 mmol/L 9 - 17 mmol/L [employer] Calcium [Mass/Vol] 8.2 mg/dL Low 8.6 - 10. 4 mg/dL [employer] Chloride [Moles/Vol] 95 mmol/L Low 98 - 10 7 mmol/L [employer] CO2 [Moles/Vol] 17 mmol/L Low 20 - 31 mmol/L [employer] Creatinine [Mass/Vol] 2.35 mg/dL High 0.5 - 0.9 mg/dL [employer] GFR 27 mL/min Low 60 - PI NF mL/min [facility] [employer] GFR Non- 22 mL/min Low 60 - PINF mL/min [facility] GFR/1.73 sq M.predicted MDRD (S/P/Bld) [Vol rate/Area] [facility] Comment on above: Average GFR for 50-5 9 years old: 93 mL/min/1.73sq m Chronic Kidney Disease: <60 mL/min/1.73sq m Kidney failure: <15 mL/min/1.73sq m eGFR calculated using average adult body mass. Additional eGFR calculator available at: http://www.itembase/multiple_crcl_2012.htm Glucose [Mass/Vol] 439 mg/dL Critically high 70 - 99 mg/d L [facility] Interpretation and review of laboratory results Abnormal [facility] Potassium [Moles/Vol] 5.2 mmol/L 3.7 - 5.3 mmol/L [facility] Sodium [Moles/Vol] 128 mmol/L Low 135 - 144 mmol/L [facility] Urea nitrogen (BldV) [Mass/Vol] 37 mg/dL High 6 - 20 mg/dL [facility] Basic Metabolic Panel w/ Ref romulo to MGon 07-20-2022 Anion gap [Moles/Vol] 13 mmol/L 9 - 17 mmol/L [facility] Calcium [Mass/Vol] 8.4 mg/dL Low 8.6 - 10. 4 mg/dL [facility] Chloride [Moles/Vol] 100 mmol/L 98 - 10 7 mmol/L [facility] CO2 [Moles/Vol] 18 mmol/L Low 20 - 31 mmol/L [facility] Creatinine [Mass/Vol] 1.37 mg/dL High 0.5 - 0.9 mg/dL [facility] [employer] GFR 49 mL/min Low 60 - PI NF mL/min [facility] [employer] GFR Non- 41 mL/min Low 60 - PINF mL/min [facility] [employer] GFR/1.73 sq M.predicted MDRD (S/P/Bld) [Vol rate/Area] [facility] Comment on above: Average GFR for 50-5 9 years old: 93 mL/min/1.73sq m Chronic Kidney Disease: <60 mL/min/1.73sq m Kidney failure: <15 mL/min/1.73sq m eGFR calculated using average adult body mass. Additional eGFR calculator available at: http://www.itembase/multiple_crcl_2012.htm Glucose [Mass/Vol] 184 mg/dL High 70 - 99 mg/dL [facility] [employer] Interpretation and review of laboratory results Abnormal [facility] [employer] Potassium [Moles/Vol] 3.8 mmol/L 3.7 - 5.3 mmol/L [facility] Sodium [Moles/Vol] 131 mmol/L Low 135 - 144 mmol/L [facility] [employer] Urea nitrogen (BldV) [Mass/Vol] 27 mg/dL High 6 - 20 mg/dL [facility] [employer] Anion gap [Moles/Vol] 13 mmol/L 9 - 17 mmol/L [facility] [employer] Calcium [Mass/Vol] 8.7 mg/dL 8.6 - 10. 4 mg/dL [facility] Chloride [Moles/Vol] 97 mmol/L Low 98 - 10 7 mmol/L [facility] [employer] CO2 [Moles/Vol] 18 mmol/L Low 20 - 31 mmol/L [facility] [employer] Creatinine [Mass/Vol] 1.62 mg/dL High 0.5 - 0.9 mg/dL [facility] [employer] GFR 41 mL/min Low 60 - PI NF mL/min [facility] [employer] GFR Non- 34 mL/min Low 60 - PINF mL/min [facility] GFR/1.73 sq M.predicted MDRD (S/P/Bld) [Vol rate/Area] [facility] Comment on above: Average GFR for 50-5 9 years old: 93 mL/min/1.73sq m Chronic Kidney Disease: <60 mL/min/1.73sq m Kidney failure: <15 mL/min/1.73sq m eGFR calculated using average adult body mass. Additional eGFR calculator available at: http://www.itembase/multiple_crcl_2012.htm Glucose [Mass/Vol] 360 mg/dL High 70 - 99 mg/dL [facility] Potassium [Moles/Vol] 5.1 mmol/L 3.7 - 5.3 mmol/L [facility] Sodium [Moles/Vol] 128 mmol/L Low 135 - 144 mmol/L [facility] [employer] Urea nitrogen (BldV) [Mass/Vol] 32 mg/dL High 6 - 20 mg/dL [facility] Anion gap [Moles/Vol] 14 mmol/L 9 - 17 mmol/L [facility] [employer] Calcium [Mass/Vol] 8.2 mg/dL Low 8.6 - 10. 4 mg/dL [facility] [employer] Chloride [Moles/Vol] 96 mmol/L Low 98 - 10 7 mmol/L [facility] CO2 [Moles/Vol] 17 mmol/L Low 20 - 31 mmol/L [facility] [employer] Creatinine [Mass/Vol] 1.68 mg/dL High 0.5 - 0.9 mg/dL [facility] [employer] GFR 39 mL/min Low 60 - PI NF mL/min [facility] [employer] GFR Non- 32 mL/min Low 60 - PINF mL/min [facility] [employer] GFR/1.73 sq M.predicted MDRD (S/P/Bld) [Vol rate/Area] [facility] Comment on above: Average GFR for 50-5 9 years old: 93 mL/min/1.73sq m Chronic Kidney Disease: <60 mL/min/1.73sq m Kidney failure: <15 mL/min/1.73sq m eGFR calculated using average adult body mass. Additional eGFR calculator available at: http://www.itembase/multiple_crcl_2012.htm Interpretation and review of laboratory results Abnormal [facility] Potassium [Moles/Vol] 4.4 mmol/L 3.7 - 5.3 mmol/L [facility] Sodium [Moles/Vol] 127 mmol/L Low 135 - 144 mmol/L [facility] Urea nitrogen (BldV) [Mass/Vol] 33 mg/dL High 6 - 20 mg/dL [facility] Anion gap [Moles/Vol] 15 mmol/L 9 - 17 mmol/L [facility] Calcium [Mass/Vol] 8.5 mg/dL Low 8.6 - 10. 4 mg/dL [facility] Chloride [Moles/Vol] 95 mmol/L Low 98 - 10 7 mmol/L [facility] CO2 [Moles/Vol] 18 mmol/L Low 20 - 31 mmol/L [facility] Creatinine [Mass/Vol] 2.11 mg/dL High 0.5 - 0.9 mg/dL [facility] GFR 30 mL/min Low 60 - PI NF mL/min [facility] GFR Non- 25 mL/min Low 60 - PINF mL/min [facility] GFR/1.73 sq M.predicted MDRD (S/P/Bld) [Vol rate/Area] [facility] Comment on above: Average GFR for 50-5 9 years old: 93 mL/min/1.73sq m Chronic Kidney Disease: <60 mL/min/1.73sq m Kidney failure: <15 mL/min/1.73sq m eGFR calculated using average adult body mass. Additional eGFR calculator available at: http://www.itembase/multiple_crcl_2011.htm Glucose [Mass/Vol] 416 mg/dL Critically high 70 - 99 mg/d L [facility] Interpretation and review of laboratory results Abnormal [facility] Potassium [Moles/Vol] 5.0 mmol/L 3.7 - 5.3 mmol/L [facility] Sodium [Moles/Vol] 128 mmol/L Low 135 - 144 mmol/L [facility] Urea nitrogen (BldV) [Mass/Vol] 38 mg/dL High 6 - 20 mg/dL [facility] Basic Metabolic Profon 07-20 Glucose [Mass/Vol] 439 mg/dL Critically high 70-99 M [facility] Comment on above: Performed By: #### A NAX, IFX, PHEP, FKLLC, PE #### [address] [id number] Professor Of Geology: Bala Skelton MD (cont.) [facility] Comment on above: Result Comment: Aver age GFR for 50-59 years old: 93 mL/min/1.73sq m Chronic Kidney Disease: <60 mL/min/1.73sq m Kidney failure: <15 mL/min/1.73sq m eGFR calculated using average adult body mass. Additional eGFR calculator available at: http://www.itembase/multiple_crcl_2012.htm Performed By: #### A NAX, IFX, PHEP, FKLLC, PE #### [address] [address] Professor Of Geology: Bala Skelton MD Anion gap [Moles/Vol] 16 mmol/L Normal 9-17 [facility] Comment on above: Performed By: #### A NAX, IFX, PHEP, FKLLC, PE #### [address] [phone] Professor Of Geology: Bala Skelton MD Calcium [Mass/Vol] 8.2 mg/dL Low 8.6-10.4 [facility] Comment on above: Performed By: #### A NAX, IFX, PHEP, FKLLC, PE #### [address] [address] Professor Of Geology: Bala Skelton MD Chloride [Moles/Vol] 95 mmol/L Low 98-107 [facility] Comment on above: Performed By: #### A NAX, IFX, PHEP, FKLLC, PE #### [address] [address] Professor Of Geology: Bala Skelton MD CO2 [Moles/Vol] 17 mmol/L Low 20-31 [facility] Comment on above: Performed By: #### A NAX, IFX, PHEP, FKLLC, PE #### [facility] [address] [place] [address] Professor Of Geology: Bala Skelton MD Creatinine [Mass/Vol] 2.35 mg/dL High 0.50-0.90 [facility] Comment on above: Performed By: #### A NAX, IFX, PHEP, FKLLC, PE #### [facility] [address] [place] [address] Professor Of Geology: Bala Skelton MD GFR, Amer 27 mL/min Low >60 [facility] Comment on above: Performed By: #### A NAX, IFX, PHEP, FKLLC, PE #### [address] [address] Professor Of Geology: Bala Skelton MD GFR,non Amer 22 mL/min Low >60 [facility] Comment on above: Performed By: #### A NAX, IFX, PHEP, FKLLC, PE #### [address] [address] Professor Of Geology: Bala Skelton MD Potassium [Moles/Vol] 5.2 mmol/L Normal 3.7-5.3 [facility] Comment on above: Performed By: #### A NAX, IFX, PHEP, FKLLC, PE #### [address] [address] Professor Of Geology: Bala Skelton MD Sodium [Moles/Vol] 128 mmol/L Low 135-144 [facility] Comment on above: Performed By: #### A NAX, IFX, PHEP, FKLLC, PE #### [facility] [employer] [address] [place] [address] Professor Of Geology: Bala Skelton MD Urea nitrogen [Mass/Vol] 37 mg/dL High 6-20 [facility] Comment on above: Performed By: #### A NAX, IFX, PHEP, FKLLC, PE #### [facility] [address] [place], [place] [phone] Professor Of Geology: Bala Skelton MD C3on 07-20-2022 C3 209 mg/dL High 90-180 [facility] Comment on above: Performed By: #### A NAX, IFX, PHEP, FKLLC, PE #### [facility] [address] [place], [place] [phone] Professor Of Geology: Bala Skelton MD C3 Complementon 07-20-2022 Complement C3 209 mg/dL High 90 - 180 mg/dL [facility] C4on 07-20-2022 C4 41 mg/dL High 10-40 [facility] Comment on above: Performed By: #### A NAX, IFX, PHEP, FKLLC, PE #### [facility] [address] [place], [place] [phone] Professor Of Geology: Bala Skelton MD C4 Complementon 07-20-2022 Complement C4 41 mg/dL High 10 - 40 mg/dL [facility] CBC with Auto Differentialon 07-20-2022 Absolute Eos # 0.00 [facility] Absolute Immature Granulocyte 0.07 [facility] Absolute Lymph # 0.46 Low [facility] Absolute [place] # 0.33 [facility] Basophils (Bld) [#/Vol] 0.00 10*3/uL [facility] Basophils/100 WBC (Bld) 0 % 0 - 2 % [facility] Eosinophils/100 WBC (Bld) 0 % Low 1 - 4 % [facility] Hematocrit (Bld) [Volume fraction] 33.3 % Low 36.3 - 47.1 % [facility] Hemoglobin (Bld) [Mass/Vol] 11.0 g/dL Low 11.9 - 15.1 g/dL [facility] Immature granulocytes/100 WBC (Bld) 1 % High 0 [facility] Interpretation and review of laboratory results Abnormal [facility] Lymphocytes/100 WBC (Bld) 7 % Low 24 - 44 % [facility] MCH (RBC) [Entitic mass] 28.6 pg 25.2 - 33.5 pg [facility] MCHC (RBC) [Mass/Vol] 33.0 g/dL 28.4 - 34.8 g/dL [facility] MCV (RBC) [Entitic vol] 86.7 fL 82.6 - 102.9 fL [facility] Monocytes/100 WBC (Bld) 5 % 1 - 7 % [facility] Morphology Bran (Bld) [Interp] Normal [facility] NRBC Automated 0.0 0.0 per 100 WBC [facility] Platelet distribution width (Bld) [Ratio] 13.8 % 11.8 - 14.4 % [facility] Platelets (Bld) [#/Vol] See Reflexed IPF Result [facility] RBC (Bld) [#/Vol] 3.84 10*6/uL Low 3.95 - 5.1 1 m/uL [facility] Segmented neutrophils/100 WBC (Bld) 87 % High 36 - 66 % [facility] Segs Absolute 5.74 [facility] WBC (Bld) [#/Vol] 6.6 10*3/uL [facility] Absolute Eos # 0.00 [facility] Absolute Immature Granulocyte 0.10 [facility] Absolute Lymph # 0.31 Low [facility] Absolute [place] # 0.41 [facility] Basophils (Bld) [#/Vol] 0.00 10*3/uL [facility] Basophils/100 WBC (Bld) 0 % 0 - 2 % [facility] Eosinophils/100 WBC (Bld) 0 % Low 1 - 4 % [facility] Hematocrit (Bld) [Volume fraction] 32.4 % Low 36.3 - 47.1 % [facility] Hemoglobin (Bld) [Mass/Vol] 11.0 g/dL Low 11.9 - 15.1 g/dL [facility] Immature granulocytes/100 WBC (Bld) 1 % High 0 [facility] Interpretation and review of laboratory results Abnormal [facility] Lymphocytes/100 WBC (Bld) 3 % Low 24 - 44 % [facility] MCH (RBC) [Entitic mass] 29.4 pg 25.2 - 33.5 pg [facility] MCHC (RBC) [Mass/Vol] 34.0 g/dL 28.4 - 34.8 g/dL [facility] MCV (RBC) [Entitic vol] 86.6 fL 82.6 - 102.9 fL [facility] Monocytes/100 WBC (Bld) 4 % 1 - 7 % [facility] Morphology Bran (Bld) [Interp] Normal [facility] NRBC Automated 0.0 0.0 per 100 WBC [facility] Platelet distribution width (Bld) [Ratio] 13.6 % 11.8 - 14.4 % [facility] Platelet mean volume (Bld) [Entitic vol] 10.4 fL 8.1 - 13.5 fL [facility] Platelets (Bld) [#/Vol] 252 10*3/uL [facility] RBC (Bld) [#/Vol] 3.74 10*6/uL Low 3.95 - 5.1 1 m/uL [facility] Segmented neutrophils/100 WBC (Bld) 92 % High 36 - 66 % [facility] Segs Absolute 9.38 High [facility] WBC (Bld[facility] [#/Vol] 10.2 10*3/uL [facility] Absolute Eos # 0.12 [facility] Absolute Immature Granulocyte 0.12 [facility] Absolute Lymph # 0.49 Low [facility] Absolute [place] # 0.00 Low [facility] Basophils (Bld) [#/Vol] 0.00 10*3/uL [facility] Basophils/100 WBC (Bld) 0 % 0 - 2 % [facility] Eosinophils/100 WBC (Bld) 1 % 1 - 4 % [facility] Hematocrit (Bld) [Volume fraction] 31.3 % Low 36.3 - 47.1 % [facility] Hemoglobin (Bld) [Mass/Vol] 10.6 g/dL Low 11.9 - 15.1 g/dL [facility] Immature granulocytes/100 WBC (Bld) 1 % High 0 [facility] Interpretation and review of laboratory results Abnormal [facility] Lymphocytes/100 WBC (Bld) 4 % Low 24 - 44 % [facility] MCH (RBC) [Entitic mass] 29.3 pg 25.2 - 33.5 pg [facility] MCHC (RBC) [Mass/Vol] 33.9 g/dL 28.4 - 34.8 g/dL [facility] MCV (RBC) [Entitic vol] 86.5 fL 82.6 - 102.9 fL [facility] Monocytes/100 WBC (Bld) 0 % Low 1 - 7 % [facility] Morphology Bran (Bld) [Interp] Normal [facility] NRBC Automated 0.0 0.0 per 100 WBC [facility] Platelet distribution width (Bld) [Ratio] 13.5 % 11.8 - 14.4 % [facility] Platelet mean volume (Bld) [Entitic vol] 10.2 fL 8.1 - 13.5 fL [facility] Platelets (Bld) [#/Vol] 280 10*3/uL [facility] RBC (Bld) [#/Vol] 3.62 10*6/uL Low 3.95 - 5.1 1 m/uL [facility] Segmented neutrophils/100 WBC (Bld) 94 % High 36 - 66 % [facility] Segs Absolute 11.57 High [facility] WBC (Bld) [#/Vol] 12.3 10*3/uL High [facility] CBC with Diffon 07-20-2022 Abs. Basophil 0.00 k/uL Normal 0.0-0.2 [facility] Comment on above: Performed By: #### A NAX, IFX, PHEP, FKLLC, PE #### [address] [address] Professor Of Geology: Bala Skelton MD Abs.Imm.Granulocyte 0.07 k/uL Normal 0.00-0.30 [facility] Comment on above: Performed By: #### A NAX, IFX, PHEP, FKLLC, PE #### [place] [address] Professor Of Geology: Bala Skelton MD Abs.Neutrophil (Seg) 5.74 k/uL Normal 1.8-7.7 [facility] Comment on above: Performed By: #### A NAX, IFX, PHEP, FKLLC, PE #### [place] [address] Professor Of Geology: Bala Skelton MD Basophils/100 WBC (Bld) 0 % Normal 0-2 [facility] Comment on above: Performed By: #### A NAX, IFX, PHEP, FKLLC, PE #### [place] [address] Professor Of Geology: Bala Skelton MD Eosinophils (Bld) [#/Vol] 0.00 10*3/uL Normal 0.0-0.4 [facility] Comment on above: Performed By: #### A NAX, IFX, PHEP, FKLLC, PE #### [address] [address] Professor Of Geology: Bala Skelton MD Eosinophils/100 WBC (Bld) 0 % Low 1-4 [facility] Comment on above: Performed By: #### A NAX, IFX, PHEP, FKLLC, PE #### [address] [address] Professor Of Geology: Bala Skelton MD Immature granulocytes/100 WBC (Bld) 1 % High 0 [facility] Comment on above: Performed By: #### A NAX, IFX, PHEP, FKLLC, PE #### [address] [address] Professor Of Geology: Bala Skelton MD Lymphocytes (Bld) [#/Vol] 0.46 10*3/uL Low 1.0-4.8 [facility] Comment on above: Performed By: #### A NAX, IFX, PHEP, FKLLC, PE #### [address] [address] Professor Of Geology: Bala Skelton MD Lymphocytes/100 WBC (Bld) 7 % Low 24-44 [facility] Comment on above: Performed By: #### A NAX, IFX, PHEP, FKLLC, PE #### [address] [address] Professor Of Geology: Bala Skelton MD Monocytes (Bld) [#/Vol] 0.33 10*3/uL Normal 0.1-0.8 [facility] Comment on above: Performed By: #### A NAX, IFX, PHEP, FKLLC, PE #### [address] [address] Professor Of Geology: Bala Skelton MD Monocytes/100 WBC (Bld) 5 % Normal 1-7 [facility] Comment on above: Performed By: #### A NAX, IFX, PHEP, FKLLC, PE #### [address] [address] Professor Of Geology: Bala Skelton MD Morphology Bran (Bld) [Interp] Normal Normal [facility] Comment on above: Performed By: #### A NAX, IFX, PHEP, FKLLC, PE #### [address] [address] Professor Of Geology: Bala Skelton MD Neutrophil (Seg) 87 % High 36-66 [facility] Comment on above: Performed By: #### A NAX, IFX, PHEP, FKLLC, PE #### [facility] [employer] [address] [place] [address] Professor Of Geology: Bala Skleton MD Erythrocyte distribution width (RBC) [Ratio] 13.8 % Normal 11.8-14.4 [facility] Comment on above: Performed By: #### A NAX, IFX, PHEP, FKLLC, PE #### [facility] [employer] [address] [place] [address] Professor Of Geology: Bala Skelton MD Hematocrit (Bld) [Volume fraction] 33.3 % Low 36.3-47.1 [facility] Comment on above: Performed By: #### A NAX, IFX, PHEP, FKLLC, PE #### [facility] [employer] [address] [place] [address] Professor Of Geology: Bala Skelton MD Hemoglobin (Bld) [Mass/Vol] 11.0 g/dL Low 11.9-15.1 [facility] Comment on above: Performed By: #### A NAX, IFX, PHEP, FKLLC, PE #### [facility] [employer] [address] [place] [address] Professor Of Geology: Bala Skelton MD MCH (RBC) [Entitic mass] 28.6 pg Normal 25.2-33.5 [facility] Comment on above: Performed By: #### A NAX, IFX, PHEP, FKLLC, PE #### [facility] [employer] [address] [place] [address] Professor Of Geology: Bala Skelton MD MCHC (RBC) [Mass/Vol] 33.0 g/dL Normal 28.4-34.8 [facility] Comment on above: Performed By: #### A NAX, IFX, PHEP, FKLLC, PE #### [address] [address] Professor Of Geology: Bala Skelton MD MCV (RBC) [Entitic vol] 86.7 fL Normal 82.6-102.9 [facility] Comment on above: Performed By: #### A NAX, IFX, PHEP, FKLLC, PE #### [address] [address] Professor Of Geology: Bala Skelton MD NRBC Automated 0.0 per 100 WBC Normal 0.0 [facility] Comment on above: Performed By: #### A NAX, IFX, PHEP, FKLLC, PE #### [address] [address] Professor Of Geology: Bala Skelton MD Platelet Count See Reflexed IPF Result Normal 138-453 [facility] Comment on above: Performed By: #### A NAX, IFX, PHEP, FKLLC, PE #### [address] [address] Professor Of Geology: Bala Skelton MD RBC (Bld) [#/Vol] 3.84 10*6/uL Low 3.95-5.11 [facility] Comment on above: Performed By: #### A NAX, IFX, PHEP, FKLLC, PE #### [address] [address] Professor Of Geology: Bala Skelton MD WBC (Bld) [#/Vol] 6.6 10*3/uL Normal 3.5-11.3 [facility] Comment on above: Performed By: #### A NAX, IFX, PHEP, FKLLC, PE #### [address] [address] Professor Of Geology: Bala Skelton MD Abs. Basophil 0.00 k/uL Normal 0.0-0.2 [facility] Comment on above: Performed By: #### A NAX, IFX, PHEP, FKLLC, PE #### [address] [address] Professor Of Geology: Bala Skelton MD Abs.Imm.Granulocyte 0.10 k/uL Normal 0.00-0.30 [facility] Comment on above: Performed By: #### A NAX, IFX, PHEP, FKLLC, PE #### [address] [address] Professor Of Geology: Bala Skelton MD Abs.Neutrophil (Seg) 9.38 k/uL High 1.8-7.7 [facility] Comment on above: Performed By: #### A NAX, IFX, PHEP, FKLLC, PE #### [address] [address] Professor Of Geology: Bala Skelton MD Basophils/100 WBC (Bld) 0 % Normal 0-2 [facility] Comment on above: Performed By: #### A NAX, IFX, PHEP, FKLLC, PE #### [address] [address] Professor Of Geology: Bala Skelton MD Eosinophils (Bld) [#/Vol] 0.00 10*3/uL Normal 0.0-0.4 [facility] Comment on above: Performed By: #### A NAX, IFX, PHEP, FKLLC, PE #### [address] [address] Professor Of Geology: Bala Skelton MD Eosinophils/100 WBC (Bld) 0 % Low 1-4 [facility] Comment on above: Performed By: #### A NAX, IFX, PHEP, FKLLC, PE #### [address] [address] Professor Of Geology: Bala Skelton MD Immature granulocytes/100 WBC (Bld) 1 % High 0 [facility] Comment on above: Performed By: #### A NAX, IFX, PHEP, FKLLC, PE #### [address] [address] Professor Of Geology: Bala Skelton MD Lymphocytes (Bld) [#/Vol] 0.31 10*3/uL Low 1.0-4.8 [facility] Comment on above: Performed By: #### A NAX, IFX, PHEP, FKLLC, PE #### [address] [address] Professor Of Geology: Bala Skelton MD Lymphocytes/100 WBC (Bld) 3 % Low 24-44 [facility] Comment on above: Performed By: #### A NAX, IFX, PHEP, FKLLC, PE #### [address] [phone] Professor Of Geology: Bala Skelton MD Monocytes (Bld) [#/Vol] 0.41 10*3/uL Normal 0.1-0.8 [facility] Comment on above: Performed By: #### A NAX, IFX, PHEP, FKLLC, PE #### [address] [address] Professor Of Geology: Bala Skelton MD Monocytes/100 WBC (Bld) 4 % Normal 1-7 [facility] Comment on above: Performed By: #### A NAX, IFX, PHEP, FKLLC, PE #### [address] [address] Professor Of Geology: Bala Skelton MD Morphology Bran (Bld) [Interp] Normal Normal [facility] Comment on above: Performed By: #### A NAX, IFX, PHEP, FKLLC, PE #### [address] [address] Professor Of Geology: Bala Skelton MD Neutrophil (Seg) 92 % High 36-66 [facility] Comment on above: Performed By: #### A NAX, IFX, PHEP, FKLLC, PE #### [address] [address] Professor Of Geology: Bala Skelton MD Erythrocyte distribution width (RBC) [Ratio] 13.6 % Normal 11.8-14.4 [facility] Comment on above: Performed By: #### A NAX, IFX, PHEP, FKLLC, PE #### [address] [address] Professor Of Geology: Bala Skelton MD Hematocrit (Bld) [Volume fraction] 32.4 % Low 36.3-47.1 [facility] Comment on above: Performed By: #### A NAX, IFX, PHEP, FKLLC, PE #### [address] [address] Professor Of Geology: Bala Skelton MD Hemoglobin (Bld) [Mass/Vol] 11.0 g/dL Low 11.9-15.1 [facility] Comment on above: Performed By: #### A NAX, IFX, PHEP, FKLLC, PE #### [address] [address] Professor Of Geology: Bala Skelton MD MCH (RBC) [Entitic mass] 29.4 pg Normal 25.2-33.5 [facility] Comment on above: Performed By: #### A NAX, IFX, PHEP, FKLLC, PE #### [address] [address] Professor Of Geology: Bala Skelton MD MCHC (RBC) [Mass/Vol] 34.0 g/dL Normal 28.4-34.8 [facility] Comment on above: Performed By: #### A NAX, IFX, PHEP, FKLLC, PE #### [address] [address] Professor Of Geology: Bala Skelton MD MCV (RBC) [Entitic vol] 86.6 fL Normal 82.6-102.9 [facility] Comment on above: Performed By: #### A NAX, IFX, PHEP, FKLLC, PE #### [address] [address] Professor Of Geology: Bala Skelton MD NRBC Automated 0.0 per 100 WBC Normal 0.0 [facility] Comment on above: Performed By: #### A NAX, IFX, PHEP, FKLLC, PE #### [place] [address] Professor Of Geology: Bala Skelton MD Platelet mean volume (Bld) [Entitic vol] 10.4 fL Normal 8.1-13.5 [facility] Comment on above: Performed By: #### A NAX, IFX, PHEP, FKLLC, PE #### [address] [address] Professor Of Geology: Bala Skelton MD Platelets (Bld) [#/Vol] 252 10*3/uL Normal 138-453 [facility] Comment on above: Performed By: #### A NAX, IFX, PHEP, FKLLC, PE #### [address] [address] Professor Of Geology: Bala Skelton MD RBC (Bld) [#/Vol] 3.74 10*6/uL Low 3.95-5.11 [facility] Comment on above: Performed By: #### A NAX, IFX, PHEP, FKLLC, PE #### [address] [address] Professor Of Geology: Bala Skelton MD WBC (Bld) [#/Vol] 10.2 10*3/uL Normal 3.5-11.3 [facility] Comment on above: Performed By: #### A NAX, IFX, PHEP, FKLLC, PE #### [place] [address] Professor Of Geology: Bala Skelton MD Abs. Basophil 0.00 k/uL Normal 0.0-0.2 [facility] Comment on above: Performed By: #### A NAX, IFX, PHEP, FKLLC, PE #### [place] [address] Professor Of Geology: Bala Skelton MD Abs.Imm.Granulocyte 0.12 k/uL Normal 0.00-0.30 [facility] Comment on above: Performed By: #### A NAX, IFX, PHEP, FKLLC, PE #### [place] [address] Professor Of Geology: Bala Skelton MD Abs.Neutrophil (Seg) 11.57 k/uL High 1.8-7.7 [facility] Comment on above: Performed By: #### A NAX, IFX, PHEP, FKLLC, PE #### [place] [address] Professor Of Geology: Bala Skelton MD Basophils/100 WBC (Bld) 0 % Normal 0-2 [facility] Comment on above: Performed By: #### A NAX, IFX, PHEP, FKLLC, PE #### [address] [address] Professor Of Geology: Bala Skelton MD Eosinophils (Bld) [#/Vol] 0.12 10*3/uL Normal 0.0-0.4 [facility] Comment on above: Performed By: #### A NAX, IFX, PHEP, FKLLC, PE #### [address] [address] Professor Of Geology: Bala Skelton MD Eosinophils/100 WBC (Bld) 1 % Normal 1-4 [facility] Comment on above: Performed By: #### A NAX, IFX, PHEP, FKLLC, PE #### [address] [address] Professor Of Geology: Bala Skelton MD Immature granulocytes/100 WBC (Bld) 1 % High 0 [facility] Comment on above: Performed By: #### A NAX, IFX, PHEP, FKLLC, PE #### [address] [address] Professor Of Geology: Bala Skelton MD Lymphocytes (Bld) [#/Vol] 0.49 10*3/uL Low 1.0-4.8 [facility] Comment on above: Performed By: #### A NAX, IFX, PHEP, FKLLC, PE #### [address] [address] Professor Of Geology: Bala Skelton MD Lymphocytes/100 WBC (Bld) 4 % Low 24-44 [facility] Comment on above: Performed By: #### A NAX, IFX, PHEP, FKLLC, PE #### [address] [address] Professor Of Geology: Bala Skelton MD Monocytes (Bld) [#/Vol] 0.00 10*3/uL Low 0.1-0.8 [facility] Comment on above: Performed By: #### A NAX, IFX, PHEP, FKLLC, PE #### [address] [address] Professor Of Geology: Bala Skelton MD Monocytes/100 WBC (Bld) 0 % Low 1-7 [facility] Comment on above: Performed By: #### A NAX, IFX, PHEP, FKLLC, PE #### [address] [address] Professor Of Geology: Bala Skelton MD Morphology Bran (Bld) [Interp] Normal Normal [facility] [facility] Comment on above: Performed By: #### A NAX, IFX, PHEP, FKLLC, PE #### [address] [address] Professor Of Geology: Bala Skelton MD Neutrophil (Seg) 94 % High 36-66 [facility] Comment on above: Performed By: #### A NAX, IFX, PHEP, FKLLC, PE #### [address] [address] Professor Of Geology: Bala Skelton MD Erythrocyte distribution width (RBC) [Ratio] 13.5 % Normal 11.8-14.4 [facility] Comment on above: Performed By: #### A NAX, IFX, PHEP, FKLLC, PE #### [address] [address] Professor Of Geology: Bala Skelton MD Hematocrit (Bld) [Volume fraction] 31.3 % Low 36.3-47.1 [facility] Comment on above: Performed By: #### A NAX, IFX, PHEP, FKLLC, PE #### [address] [address] Professor Of Geology: Bala Skelton MD Hemoglobin (Bld) [Mass/Vol] 10.6 g/dL Low 11.9-15.1 [facility] Comment on above: Performed By: #### A NAX, IFX, PHEP, FKLLC, PE #### [address] [address] Professor Of Geology: Bala Skelton MD MCH (RBC) [Entitic mass] 29.3 pg Normal 25.2-33.5 [facility] Comment on above: Performed By: #### A NAX, IFX, PHEP, FKLLC, PE #### [address] [address] Professor Of Geology: Bala Skelton MD MCHC (RBC) [Mass/Vol] 33.9 g/dL Normal 28.4-34.8 [facility] Comment on above: Performed By: #### A NAX, IFX, PHEP, FKLLC, PE #### [address] [address] Professor Of Geology: Bala Skelton MD MCV (RBC) [Entitic vol] 86.5 fL Normal 82.6-102.9 [facility] Comment on above: Performed By: #### A NAX, IFX, PHEP, FKLLC, PE #### [address] [address] Professor Of Geology: Bala Skelton MD NRBC Automated 0.0 per 100 WBC Normal 0.0 [facility] Comment on above: Performed By: #### A NAX, IFX, PHEP, FKLLC, PE #### [address] [address] Professor Of Geology: Bala Skelton MD Platelet mean volume (Bld) [Entitic vol] 10.2 fL Normal 8.1-13.5 [facility] Comment on above: Performed By: #### A NAX, IFX, PHEP, FKLLC, PE #### [address] [address] Professor Of Geology: Bala Skelton MD Platelets (Bld) [#/Vol] 280 10*3/uL Normal 138-453 [facility] Comment on above: Performed By: #### A NAX, IFX, PHEP, FKLLC, PE #### [facility] [address] [place] [address] Professor Of Geology: Bala Skelton MD RBC (Bld) [#/Vol] 3.62 10*6/uL Low 3.95-5.11 [facility] Comment on above: Performed By: #### A NAX, IFX, PHEP, FKLLC, PE #### [facility] [employer] [facility] [place], [place] [phone] Professor Of Geology: Bala Skelton MD WBC (Bld) [#/Vol] 12.3 10*3/uL High 3.5-11.3 [facility] Comment on above: Performed By: #### A NAX, IFX, PHEP, FKLLC, PE #### [facility] [address] [place] [address] Professor Of Geology: Bala Skelton MD CREATININE, RANDOM URINEon 0 07-20-2022 Creatinine, Ur 67.5 mg/dL 28 - 217 mg/dL [facility] CULTURE URINEon 07-20-2022 CULTURE URINE Isolate 1 Escherichia coli >100,000 cfu/mL of ORGANISM 1 Escherichia coli ANTIBIOTIC M.I.C RX STATUS Ampicillin <=2 S F Ampicillin/Sulbactam <=2 S F Piperacillin/Tazobacta m <=4 S F Cefazolin <=4 S F Ceftazidime <=1 S F Ceftriaxone <=1 S F Ertapenem <=0.5 S F Imipenem <=0.25 S F Amikacin <=2 S F Gentamicin <=1 S F Tobramycin <=1 S F Ciprofloxacin <=0.25 S F Levofloxacin <=0.12 S F Nitrofurantoin <=16 S F Trimethoprim/Sulfameth oxazole <=20 S F Normal [facility] Comment on above: Performed By: #### U MICRO, ERUR #### [facility] [address] [address] [address] Delmer Rea Chloride, Random Urineon Chloride, Ur 50 mmol/L [facility] Comment on above: No normal range esta blished. Chloride,Random Uron 022 Chloride [Moles/Vol] 50 mmol/L Normal [facility] Comment on above: Result Comment: No n ormal range established. Performed By: #### A NAX, IFX, PHEP, FKLLC, PE #### [facility] [address] [place], [place] [phone] Professor Of Geology: Bala Skelton MD Creatinine, Random Urineon 0 07-20-2022 Creatinine, Ur 76.5 mg/dL 28 - 217 mg/dL [facility] Creatinine,Random Uron 07-20 Creatinine [Mass/Vol] 67.5 mg/dL Normal 28.0-217.0 [facility] Comment on above: Performed By: #### B C #### [facility] [place], [place] [phone] Professor Of Geology: Bala Skelton MD Creatinine [Mass/Vol] 76.5 mg/dL Normal 28.0-217.0 [facility] Comment on above: Performed By: #### A NAX, IFX, PHEP, FKLLC, PE #### [facility] [place], [place] [phone] Professor Of Geology: Bala Skelton MD EKG 12 LeadOrdered By: Cheryl Domínguez on 07-20-2022 Atrial Rate 105 BPM [employer] Work Phone: P Blessing 8 degrees [employer] Work Phone: P-R Interval 136 ms [employer] Work Phone: Q-T Interval 344 ms [employer] Work Phone: QRS Duration 84 ms [employer] Work Phone: QTc Calculation (Bazett) 454 ms [facility] [employer] Work Phone: R Blessing -15 degrees [facility] [employer] Work Phone: T Blessing 13 degrees [facility] [employer] Work Phone: Ventricular Rate 105 BPM [facility] [employer] Work Phone: [facility] Work Phone: EKG 12 Leadon 07-20-2022 Sinus tachycardia Septal infarct (cited on or before 20-JUL-2022) Abnormal ECG When compared with ECG of 20-JUL-2022 05:40, No significant change was found [facility] Julien Hamilton MD - 07/20/2022 Sinus tachycardia Septal infarct (cited on or before 20-JUL-2022) Abnormal ECG When compared with ECG of 20-JUL-2022 05:40, No significant change was found [facility] [employer] Work Phone: Free Sorrel + Lambdaon 2021 Free Sorrel Lt Chains 2.91 mg/dL High 0.37-1.94 [facility] Comment on above: Performed By: #### A NAX, IFX, PHEP, FKLLC, PE #### [facility] [address] [place] [phone] Professor Of Geology: Bala Skelton MD Free Sorrel/Lambda Rat 1.67 High 0.26-1.65 [facility] Comment on above: Performed By: #### A NAX, IFX, PHEP, FKLLC, PE #### [facility] [address] [place] [address] [phone] Professor Of Geology: Bala Skelton MD Free Lambda Lt Chains 1.74 mg/dL Normal 0.57-2.63 [facility] Comment on above: Performed By: #### A NAX, IFX, PHEP, FKLLC, PE #### [facility] [address] [place] [address] [phone] Professor Of Geology: Bala Skelton MD Immature Platelet Fractionon 07-20-2022 Platelet, Fluorescence Platelet clumps present, count appears adequate. [facility] Sorrel/Lambda Quantitative Fr ee Light Chains, Serumon 07-20-2022 Free Sorrel/Lambda Ratio 1.67 High 0.26 - 1.65 [facility] Interpretation and review of laboratory results Abnormal [facility] Sorrel Free Light Chains QNT 2.91 mg/dL High 0.37 - 1.94 mg/dL [facility] Lambda Free Light Chains QNT 1.74 mg/dL 0.57 - 2.63 mg/dL [facility] Lactate, Sepsison 07-20-2022 Lactic Acid,Sep Wbld 3.8 mmol/L High 0.5-1.9 [facility] Comment on above: Performed By: #### B C #### [facility] [address] [place], [place] [phone] Professor Of Geology: Bala Skelton MD Interpretation and review of laboratory results Abnormal [facility] Lactic Acid, Sepsis, Whole Blood 3.8 mmol/L High 0.5 - 1.9 mmol/L [facility] Lactic Acidon 07-20-2022 Lactic Acid,Whole Bl 2.0 mmol/L Normal 0.7-2.1 [facility] Comment on above: Performed By: #### B C #### [facility] [address] [place] [address] [phone] Professor Of Geology: Bala Skelton MD Lactic Acid, Whole Blood 2.0 mmol/L 0.7 - 2.1 mmol/L [facility] No Panel Informationon 07-20 [facility] Interpretation and review of laboratory results Abnormal [facility] PLT, Immature Fract.on 07-20 Platelet, Fluoresc. Platelet clumps present, count appears adequate. Normal 138-453 [facility] Comment on above: Performed By: #### A NAX, IFX, PHEP, FKLLC, PE #### [facility] [address] [place] [address] Professor Of Geology: Bala Skelton MD POC Glucose Fingerstickon Glucose [Mass/Vol] 145 mg/dL High 65 - 105 mg/dL [facility] Interpretation and review of laboratory results Abnormal [facility] Glucose [Mass/Vol] 231 mg/dL High 65 - 105 mg/dL [facility] Interpretation and review of laboratory results Abnormal [facility] Glucose [Mass/Vol] 393 mg/dL High 65 - 105 mg/dL [facility] Interpretation and review of laboratory results Abnormal [facility] Glucose [Mass/Vol] 405 mg/dL Critically high 65 - 1 05 mg/dL [facility] Comment on above: Critical Noted Interpretation and review of laboratory results Abnormal [facility] Glucose [Mass/Vol] 375 mg/dL High 65 - 105 mg/dL [facility] Interpretation and review of laboratory results Abnormal [facility] Glucose [Mass/Vol] 415 mg/dL Critically high 65 - 1 05 mg/dL [facility] Interpretation and review of laboratory results Abnormal [facility] Procalcitoninon 07-20-2022 Procalcitonin 48.54 ng/mL High <0.09 [facility] Comment on above: Result Comment: Suspected Sepsis: [...] entered into the Change in Procalcitonin Calculator (www.mqlqru-cco-nkmiohrbyc.Magoosh) to determine the patient's Mortality Risk Prognosis In healthy neonates, plasma Procalcitonin (PCT) concentrations increase gradually after , reaching peak values at about 24 hours of age then decrease to normal values below 0.5 ng/mL by 48-72 hours of age. Performed By: #### A NAX, IFX, PHEP, FKLLC, PE #### [facility] [place] [phone] Professor Of Geology: Bala Skelton MD Interpretation and review of laboratory results Abnormal [facility] Procalcitonin 48.54 ng/mL High NINF - 0.09 ng/mL [facility] Comment on above: Suspected Sepsis: <0.50 [...] entered into the Change in Procalcitonin Calculator (www.fcbznw-ach-mpatfiaybf.Magoosh) to determine the patient's Mortality Risk Prognosis In healthy neonates, plasma Procalcitonin (PCT) concentrations increase gradually after , reaching peak values at about 24 hours of age then decrease to normal values below 0.5 ng/mL by 48-72 hours of age. [facility] Prot. Electroph, Blon 2021 Protein [Mass/Vol] 6.3 g/dL Low 6.4-8.3 [facility] Comment on above: Performed By: #### A NAX, IFX, PHEP, FKLLC, PE #### [facility] [employer] [facility] [place], [place] [phone] Professor Of Geology: Bala Skelton MD Prot. Electrophoresis, Uron 07-20-2022 Type of Specimen .URINE Normal [facility] Comment on above: Performed By: #### A NAX, IFX, PHEP, FKLLC, PE #### [facility] [employer] [address] [place] [address] [phone] Professor Of Geology: Bala Skelton MD Protein / creatinine ratio, urineon 07-20-2022 Creatinine, Ur 75.7 mg/dL 28 - 217 mg/dL [facility] Interpretation and review of laboratory results Abnormal [facility] Protein (U) [Mass/Vol] 145 mg/dL [facility] Comment on above: No normal range esta blished. Urine Total Protein Creatinine Ratio 1.92 High 0 - 0.2 [facility] Protein, urine, randomon Protein (U) [Mass/Vol] 144 mg/dL [facility] Comment on above: No normal range esta blished. Protein,Tot,Peever Uron 2021 Creatinine [Mass/Vol] 75.7 mg/dL Normal 28.0-217.0 [facility] Comment on above: Performed By: #### A NAX, IFX, PHEP, FKLLC, PE #### [facility] [employer] [facility] [place] [address] Professor Of Geology: Bala Skelton MD Tot Prot. Conc. 145 mg/dL Normal [facility] Comment on above: Result Comment: No n ormal range established. Performed By: #### A NAX, IFX, PHEP, FKLLC, PE #### [facility] [employer] [facility] [place] [address] Professor Of Geology: Bala Skelton MD Tot Prot. Conc. 144 mg/dL Normal [facility] Comment on above: Result Comment: No n ormal range established. Performed By: #### A NAX, IFX, PHEP, FKLLC, PE #### [facility] [address] [place] [address] [phone] Professor Of Geology: Bala Skelton MD TP/Cre Ratio 1.92 High 0.00-0.20 [facility] Comment on above: Performed By: #### A NAX, IFX, PHEP, FKLLC, PE #### [facility] [address] [place] [address] [phone] Professor Of Geology: Bala Skelton MD SODIUM, URINE, RANDOMon 07-07 Sodium (U) [Moles/Vol] mmol/L mmol/L [facility] Comment on above: No normal range esta blished. [facility] Sodium, Random Uron 07-20-20 22 Na Conc. Urine <20 Normal [facility] Comment on above: Result Comment: No n ormal range established. Performed By: #### B C #### [facility] [address] [place] [address] [phone] Professor Of Geology: Bala Skelton MD Sodium (U) [Moles/Vol] 26 mmol/L Normal [facility] Comment on above: Result Comment: No n ormal range established. Performed By: #### A NAX, IFX, PHEP, FKLLC, PE #### [facility] [address] [place] [address] [phone] Professor Of Geology: Bala Skelton MD Sodium, urine, randomon 07-07 Sodium (U) [Moles/Vol] 26 mmol/L [facility] Comment on above: No normal range esta [...] Femi Enamorado MD 07/20/22 Final result Normal [facility] 1. Possible nephrostomy at the lower pole left kidney. Correlate with any recent instrumentation. 2. Equivocal dilatation of the upper pole left kidney. No overt hydronephrosis. 3. 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 RECOMMENDATIONS: Unavailable [facility] EXAMINATION: ULTRASOUND OF THE [...] nephrostomy at the lower pole left kidney. [facility] Femi Enamorado MD - 07/20/2022 EXAMINATION: ULTRASOUND OF THE [...] involving the left renal hilum. RECOMMENDATIONS: Unavailable [employer] Phone: Radiology Study observation (narrative) [employer] Phone: US RETROPERITONEAL LIMITEDOr dered By: Femi Enamorado on 07-20-2022 [facility] [employer] Phone: Urinalysis w/ Microon 2021 Epithelial cells LM Ql (Urine sed) 0 TO 2 Normal 0-5 [facility] Comment on above: Performed By: #### A NAX, IFX, PHEP, FKLLC, PE #### [facility] [address] [place] [address] [phone] Professor Of Geology: Bala Skelton MD Urine RBC's TOO NUMEROUS TO COUNT Normal 0-2 [facility] Comment on above: Performed By: #### A NAX, IFX, PHEP, FKLLC, PE #### [facility] [address] [place] [address] [phone] Professor Of Geology: Bala Skelton MD Urine WBC's 10 TO 20 Normal 0-5 [facility] Comment on above: Performed By: #### A NAX, IFX, PHEP, FKLLC, PE #### [facility] [address] [place] [address] [phone] Professor Of Geology: Bala Skelton MD Bilirubin, SemiQt,Ur Negative Normal NEG [facility] Comment on above: Performed By: #### A NAX, IFX, PHEP, FKLLC, PE #### [facility] [address] [place] [phone] Professor Of Geology: Bala Skelton MD Blood, Urine LARGE Abnormal NEG [facility] Comment on above: Performed By: #### A NAX, IFX, PHEP, FKLLC, PE #### [facility] [address] [place] [phone] Professor Of Geology: Bala Skelton MD Clarity (U) Cloudy Abnormal CLEAR [facility] Comment on above: Performed By: #### A NAX, IFX, PHEP, FKLLC, PE #### [address] [address] Professor Of Geology: Bala Skelton MD Color (U) [place] Abnormal YEL [facility] Comment on above: Result Comment: INTE RPRET WITH CAUTION DUE TO INTENSE COLOR OF URINE. Performed By: #### A NAX, IFX, PHEP, FKLLC, PE #### [facility] [employer] [address] [place] [phone] Professor Of Geology: Bala Skelton MD Glucose Ql (U) 3+ Abnormal NEG [facility] Comment on above: Performed By: #### A NAX, IFX, PHEP, FKLLC, PE #### [facility] [address] [place] [phone] Professor Of Geology: Bala Skelton MD Ketones Ql (U) Negative Normal NEG [facility] Comment on above: Performed By: #### A NAX, IFX, PHEP, FKLLC, PE #### [facility] [employer] [address] [place] [phone] Professor Of Geology: Bala Skelton MD Leukocyte esterase Test strip Ql (U) MODERATE Abnormal NEG [facility] Comment on above: Performed By: #### A NAX, IFX, PHEP, FKLLC, PE #### [address] [address] Professor Of Geology: Bala Skelton MD Nitrite,Ur Negative Normal NEG [facility] Comment on above: Performed By: #### A NAX, IFX, PHEP, FKLLC, PE #### [address] [address] Professor Of Geology: Bala Skelton MD PH,Ur 5.0 Normal 5.0-8.0 [facility] Comment on above: Performed By: #### A NAX, IFX, PHEP, FKLLC, PE #### [address] [address] Professor Of Geology: Bala Skelton MD Protein Ql (U) 2+ Abnormal NEG [facility] Comment on above: Performed By: #### A NAX, IFX, PHEP, FKLLC, PE #### [address] [address] Professor Of Geology: Bala Skelton MD Spec. [place],Ur 1.022 Normal 1.005-1.030 [facility] Comment on above: Performed By: #### A NAX, IFX, PHEP, FKLLC, PE #### [address] [address] Professor Of Geology: Bala Skelton MD Urobilinogen,Ur Normal Normal NORM [facility] Comment on above: Performed By: #### A NAX, IFX, PHEP, FKLLC, PE #### [address] [address] Professor Of Geology: Bala Skelton MD Urinalysis with Microscopico n 07-20-2022 Bilirubin Urine Negative NEGATIVE [facility] Color, UA [place] Abnormal Yellow [facility] Comment on above: INTERPRET WITH CAUTI ON DUE TO INTENSE COLOR OF URINE. Epithelial Cells UA 0 TO 2 [facility] Glucose, Ur 3+ Abnormal NEGATIVE [facility] Interpretation and review of laboratory results Abnormal [facility] Ketones Ql (U) Negative NEGATIVE [facility] Leukocyte esterase Test strip Ql (U) MODERATE Abnormal NEGATIVE [facility] Nitrite, Urine Negative NEGATIVE [facility] pH, UA 5.0 5 - 8 [facility] Protein, UA 2+ Abnormal NEGATIVE [facility] RBC, UA TOO NUMEROUS TO COUNT [facility] Specific [place], UA 1.022 1.005 - 1.03 [facility] Turbidity UA Cloudy Abnormal Clear [facility] Urine Hgb LARGE Abnormal NEGATIVE [facility] Urobilinogen, Urine Normal Normal [facility] WBC, UA 10 TO 20 [facility] Venous Blood Gaseson 022 Body Temp. 37.0 Normal [facility] Comment on above: Performed By: #### V BG #### [facility] [employer] [address] [place] [address] [phone] Professor Of Geology: Bala Skelton MD Carboxy Hgb 1.4 % Normal 0-5 [facility] Comment on above: Result Comment: Reference Range: Non-Smokers 0-2% Average Smoker 2-4% Heavy Smoker <10% Performed By: #### V BG #### [facility] [address] [place] [address] [phone] Professor Of Geology: Bala Skelton MD FIO2 INFORMATION NOT PROVIDED Normal [facility] Comment on above: Performed By: #### V BG #### [facility] [employer] [address] [place] [address] [phone] Professor Of Geology: Bala Skelton MD HCO3 (Bld) [Moles/Vol] 19.6 mmol/L Low 24-30 [facility] Comment on above: Performed By: #### V BG #### [address] [address] Professor Of Geology: Bala Skelton MD Negative Base Excess 5.6 mmol/L High 0.0-2.0 [facility] Comment on above: Performed By: #### V BG #### [address] [address] Professor Of Geology: Bala Skelton MD Oxygen (Bld) [Partial pressure] 36.9 mm[Hg] Normal 30-50 [facility] Comment on above: Performed By: #### V BG #### [facility] [employer] [address] [place] [phone] Professor Of Geology: Bala Skelton MD Oxygen saturation in Blood 74.4 % Normal 60.0-85.0 [facility] Comment on above: Performed By: #### V BG #### [address] [address] Professor Of Geology: Bala Skelton MD pCO2 39.5 Normal 39-55 [facility] Comment on above: Performed By: #### V BG #### [facility] [employer] [address] [place] [phone] Professor Of Geology: Bala Skelton MD pH (Bld) 7.316 [pH] Low 7.320-7.420 [facility] Comment on above: Performed By: #### V BG #### [address] [address] Professor Of Geology: Bala Skelton MD XR CHEST PORTABLEon 07-20-20 [...] Ricarda Orozco DO 07/20/22 Final result Normal [facility] 1. Mild vascular congestion. 2. Minimal patchy [...] or pleural effusion. [facility] Ricarda Orozco, - 07/20/2022 EXAMINATION: ONE X-RAY VIEW OF [...] related to atelectasis. No dense airspace consolidation. [employer] Phone: Radiology Study observation (narrative) [employer] Phone: XR CHEST PORTABLEOrdered By: Ricarda Orozco on 07-20-2022 [employer] Phone: Basic Metab w/rfx MGon 07-19 (cont.) Normal [facility] Comment on above: Result Comment: Aver age GFR for 50-59 years old: 93 mL/min/1.73sq m Chronic Kidney Disease: <60 mL/min/1.73sq m Kidney failure: <15 mL/min/1.73sq m eGFR calculated using average adult body mass. Additional eGFR calculator available at: http://www.Simtrol.Magoosh/multiple_crcl_2012.htm Performed By: #### B MPX, CDP #### [facility] [address] [place] [phone] Professor Of Geology: Bala Skelton MD Anion gap [Moles/Vol] 14 mmol/L Normal 9-17 [facility] Comment on above: Performed By: #### B MPX, CDP #### [facility] [address] [place] [phone] Professor Of Geology: Bala Skelton MD Calcium [Mass/Vol] 8.3 mg/dL Low 8.6-10.4 [facility] Comment on above: Performed By: #### B MPX, CDP #### [facility] [employer] [address] [place] [phone] Professor Of Geology: Bala Skelton MD Chloride [Moles/Vol] 98 mmol/L Normal 98-107 [facility] Comment on above: Performed By: #### B MPX, CDP #### [facility] [employer] [address] [place] [phone] Professor Of Geology: Bala Skelton MD CO2 [Moles/Vol] 19 mmol/L Low 20-31 [facility] Comment on above: Performed By: #### B MPX, CDP #### [facility] [address] [place] [phone] Professor Of Geology: Bala Skelton MD Creatinine [Mass/Vol] 1.71 mg/dL High 0.50-0.90 [facility] Comment on above: Performed By: #### B MPX, CDP #### [facility] [address] [place] [phone] Professor Of Geology: Bala Skelton MD GFR, Amer 38 mL/min Low >60 [facility] Comment on above: Performed By: #### B MPX, CDP #### [facility] [address] [place] [phone] Professor Of Geology: Bala Skelton MD GFR,non Amer 32 mL/min Low >60 [facility] [facility] Comment on above: Performed By: #### B MPX, CDP #### [facility] [address] [place] [phone] Professor Of Geology: Bala Skelton MD Glucose [Mass/Vol] 263 mg/dL High 70-99 [facility] Comment on above: Performed By: #### B MPX, CDP #### [facility] [address] [place] [phone] Professor Of Geology: Bala Skelton MD Potassium [Moles/Vol] 4.0 mmol/L Normal 3.7-5.3 [facility] Comment on above: Performed By: #### B MPX, CDP #### [facility] [employer] [address] [place] [address] Professor Of Geology: Bala Skelton MD Sodium [Moles/Vol] 131 mmol/L Low 135-144 [facility] Comment on above: Performed By: #### B MPX, CDP #### [facility] [employer] [address] [place] [address] Professor Of Geology: Bala Skelton MD Urea nitrogen [Mass/Vol] 38 mg/dL High 6-20 [facility] Comment on above: Performed By: #### B MPX, CDP #### [facility] [address] [place] [address] Professor Of Geology: Bala Skelton MD Basic Metabolic Panel w/ Ref romulo to MGon 07-19-2022 Anion gap [Moles/Vol] 14 mmol/L 9 - 17 mmol/L [facility] Calcium [Mass/Vol] 8.3 mg/dL Low 8.6 - 10. 4 mg/dL [facility] Chloride [Moles/Vol] 98 mmol/L 98 - 10 7 mmol/L [facility] CO2 [Moles/Vol] 19 mmol/L Low 20 - 31 mmol/L [facility] Creatinine [Mass/Vol] 1.71 mg/dL High 0.5 - 0.9 mg/dL [facility] GFR 38 mL/min Low 60 - PI NF mL/min [facility] GFR Non- 32 mL/min Low 60 - PINF mL/min [facility] GFR/1.73 sq M.predicted MDRD (S/P/Bld) [Vol rate/Area] [facility] Comment on above: Average GFR for 50-5 9 years old: 93 mL/min/1.73sq m Chronic Kidney Disease: <60 mL/min/1.73sq m Kidney failure: <15 mL/min/1.73sq m eGFR calculated using average adult body mass. Additional eGFR calculator available at: http://www.itembase/multiple_crcl_2012.htm Glucose [Mass/Vol] 263 mg/dL High 70 - 99 mg/dL [facility] Interpretation and review of laboratory results Abnormal [facility] Potassium [Moles/Vol] 4.0 mmol/L 3.7 - 5.3 mmol/L [facility] Sodium [Moles/Vol] 131 mmol/L Low 135 - 144 mmol/L [facility] Urea nitrogen (BldV) [Mass/Vol] 38 mg/dL High 6 - 20 mg/dL [facility] CBC with Auto Differentialon 07-19-2022 Absolute Eos # 0.16 [facility] Absolute Immature Granulocyte 0.05 [facility] Absolute Lymph # 2.34 [facility] Absolute [place] # 0.64 [facility] Basophils (Bld) [#/Vol] 0.03 10*3/uL [facility] Basophils/100 WBC (Bld) 0 % 0 - 2 % [facility] Eosinophils/100 WBC (Bld) 2 % 1 - 4 % [facility] Hematocrit (Bld) [Volume fraction] 30.2 % Low 36.3 - 47.1 % [facility] Hemoglobin (Bld) [Mass/Vol] 10.4 g/dL Low 11.9 - 15.1 g/dL [facility] Immature granulocytes/100 WBC (Bld) 1 % High 0 [facility] Interpretation and review of laboratory results Abnormal [facility] Lymphocytes/100 WBC (Bld) 33 % 24 - 43 % [facility] MCH (RBC) [Entitic mass] 29.7 pg 25.2 - 33.5 pg [facility] MCHC (RBC) [Mass/Vol] 34.4 g/dL 28.4 - 34.8 g/dL [facility] MCV (RBC) [Entitic vol] 86.3 fL 82.6 - 102.9 fL [facility] Monocytes/100 WBC (Bld) 9 % 3 - 12 % [facility] NRBC Automated 0.0 0.0 per 100 WBC [facility] Platelet distribution width (Bld) [Ratio] 13.6 % 11.8 - 14.4 % [facility] Platelet mean volume (Bld) [Entitic vol] 11.2 fL 8.1 - 13.5 fL [facility] Platelets (Bld) [#/Vol] 410 10*3/uL [facility] RBC (Bld) [#/Vol] 3.50 10*6/uL Low 3.95 - 5.1 1 m/uL [facility] Segmented neutrophils/100 WBC (Bld) 54 % 36 - 65 % [facility] Segs Absolute 3.83 [facility] WBC (Bld) [#/Vol] 7.1 10*3/uL [facility] CBC with Diffon 07-19-2022 Abs. Basophil 0.03 k/uL Normal 0.00-0.20 [facility] Comment on above: Performed By: #### B ERYN HAQ #### [facility] [employer] [facility] [place] [address] Professor Of Geology: Bala Skelton MD Abs.Imm.Granulocyte 0.05 k/uL Normal 0.00-0.30 [facility] Comment on above: Performed By: #### B MPX, CDP #### [address] [address] Professor Of Geology: Bala Skelton MD Abs.Neutrophil (Seg) 3.83 k/uL Normal 1.50-8.10 [facility] Comment on above: Performed By: #### B MPX, CDP #### [address] [address] Professor Of Geology: Bala Skelton MD Basophils/100 WBC (Bld) 0 % Normal 0-2 [facility] Comment on above: Performed By: #### B MPX, CDP #### [place] [address] Professor Of Geology: Bala Skelton MD Eosinophils (Bld) [#/Vol] 0.16 10*3/uL Normal 0.00-0.44 [facility] Comment on above: Performed By: #### B MPX, CDP #### [address] [address] Professor Of Geology: Bala Skelton MD Eosinophils/100 WBC (Bld) 2 % Normal 1-4 [facility] Comment on above: Performed By: #### B MPX, CDP #### [address] [address] Professor Of Geology: Bala Skelton MD Erythrocyte distribution width (RBC) [Ratio] 13.6 % Normal 11.8-14.4 [facility] Comment on above: Performed By: #### B MPX, CDP #### [facility] [employer] [address] [place] [address] Professor Of Geology: Bala Sketlon MD Hematocrit (Bld) [Volume fraction] 30.2 % Low 36.3-47.1 [facility] Comment on above: Performed By: #### B MPX, CDP #### [facility] [employer] [facility] [place] [address] Professor Of Geology: Bala Skelton MD Hemoglobin (Bld) [Mass/Vol] 10.4 g/dL Low 11.9-15.1 [facility] Comment on above: Performed By: #### B MPX, CDP #### [facility] [employer] [address] [place] [address] Professor Of Geology: Bala Skelton MD Immature granulocytes/100 WBC (Bld) 1 % High 0 [facility] Comment on above: Performed By: #### B MPX, CDP #### [facility] [employer] [address] [place] [address] Professor Of Geology: Bala Skelton MD Lymphocytes (Bld) [#/Vol] 2.34 10*3/uL Normal 1.10-3.70 [facility] Comment on above: Performed By: #### B MPX, CDP #### [facility] [employer] [address] [place] [address] Professor Of Geology: Bala Skelton MD Lymphocytes/100 WBC (Bld) 33 % Normal 24-43 [facility] Comment on above: Performed By: #### B MPX, CDP #### [facility] [employer] [address] [place] [address] Professor Of Geology: Bala Skelton MD MCH (RBC) [Entitic mass] 29.7 pg Normal 25.2-33.5 [facility] Comment on above: Performed By: #### B MPX, CDP #### [facility] [employer] [address] [place] [address] Professor Of Geology: Bala Skelton MD MCHC (RBC) [Mass/Vol] 34.4 g/dL Normal 28.4-34.8 [facility] Comment on above: Performed By: #### B MPX, CDP #### [address] [address] Professor Of Geology: Bala Skelton MD MCV (RBC) [Entitic vol] 86.3 fL Normal 82.6-102.9 [facility] Comment on above: Performed By: #### B MPX, CDP #### [address] [address] Professor Of Geology: Bala Skelton MD Monocytes (Bld) [#/Vol] 0.64 10*3/uL Normal 0.10-1.20 [facility] Comment on above: Performed By: #### B MPX, CDP #### [address] [address] Professor Of Geology: Bala Skelton MD Monocytes/100 WBC (Bld) 9 % Normal 3-12 [facility] Comment on above: Performed By: #### B MPX, CDP #### [address] [address] Professor Of Geology: Bala Skelton MD Neutrophil (Seg) 54 % Normal 36-65 [facility] Comment on above: Performed By: #### B MPX, CDP #### [address] [address] Professor Of Geology: Bala Skelton MD NRBC Automated 0.0 per 100 WBC Normal 0.0 [facility] Comment on above: Performed By: #### B MPX, CDP #### [address] [address] Professor Of Geology: Bala Skelton MD Platelet mean volume (Bld) [Entitic vol] 11.2 fL Normal 8.1-13.5 [facility] Comment on above: Performed By: #### B MPX, CDP #### [address] [address] Professor Of Geology: Bala Skelton MD Platelets (Bld) [#/Vol] 410 10*3/uL Normal 138-453 [facility] Comment on above: Performed By: #### B MPX, CDP #### [facility] [place] [address] Professor Of Geology: Bala Skelton MD RBC (Bld) [#/Vol] 3.50 10*6/uL Low 3.95-5.11 [facility] Comment on above: Performed By: #### B MPX, CDP #### [facility] [place] [address] Professor Of Geology: Bala Skelton MD WBC (Bld) [#/Vol] 7.1 10*3/uL Normal 3.5-11.3 [facility] Comment on above: Performed By: #### B MPX, CDP #### [facility] [address] [place] [phone] Professor Of Geology: Bala Skelton MD Cult,Urineon 07-19-2022 Cult,Urine Specimen Description .CLEAN CATCH URINE Culture NO SIGNIFICANT GROWTH Report Status FINAL 07/19/2022 Normal [facility] Comment on above: Performed By: #### A NAX, IFX, PHEP, FKLLC, PE #### [facility] [employer] [address] [place] [phone] Professor Of Geology: Bala Skelton MD Culture, Urineon 07-19-2022 Bacteria identified Cx Nom (U) NO SIGNIFICANT GROWTH [facility] Hitch Specimen Description .CLEAN CATCH URINE [facility] IR GUIDED NEPHROSTOMY CATH P LACEMENT LEFTon 07-19-2022 Successful percutaneous left nephroureteral stent placement via lower pole, past a large staghorn calculus, with distal pigtail tip position in the urinary bladder, as above. Findings were discussed with KASH CLAY at 4:09 pm on 07/19/2022. Noman Coello MD - 07/19/2022 PROCEDURE: PERCUTANEOUS ANTEGRADE PYELOGRAM LEFT PERCUTANEOUS NEPHROURETERAL STENT PLACEMENT ULTRASOUND AND FLUOROSCOPY GUIDANCE MODERATE CONSCIOUS SEDATION 07/19/2022 HISTORY: ORDERING SYSTEM [facility] HISTORY[facility] TECHN[facility] PROVIDED HISTORY: staghorn Is the patient [...] the procedure including risks, benefits, and alternatives. Campo protocol was followed. The patient's flank was [...] into the urinary bladder using a 4 Italian Kumpe the catheter; the Glidewire was exchanged [...] puncture of the lower pole calyx, 4 Italian Kumpe the catheter manipulation and glidewire extension into the urinary bladder. Subsequent images show the nephroureteral stent in satisfactory position. IMPRESSION: Successful percutaneous left nephroureteral stent placement via lower pole, past a large staghorn calculus, with distal pigtail tip position in the urinary bladder, as above. Findings were discussed with KASH CLAY at 4:09 pm on 07/19/2022. [employer] Work Phone: Radiology Study observation (narrative) [employer] Work Phone: IR GUIDED NEPHROSTOMY CATH P EDWARD LEFTOrdered By: Noman Mullen on 07-19-2022 [employer] Work Phone: POC Glucose Fingerstickon Glucose [Mass/Vol] 278 mg/dL High 65 - 105 mg/dL [facility] Interpretation and review of laboratory results Abnormal [facility] Glucose [Mass/Vol] 231 mg/dL High 65 - 105 mg/dL [facility] Interpretation and review of laboratory results Abnormal [facility] Glucose [Mass/Vol] 301 mg/dL High 65 - 105 mg/dL [facility] Interpretation and review of laboratory results Abnormal [facility] Glucose [Mass/Vol] 283 mg/dL High 65 - 105 mg/dL [facility] Interpretation and review of laboratory results Abnormal [facility] PTon 07-19-2022 INR Coag (PPP) [Relative time] 0.9 {INR} Normal [facility] Comment on above: Result Comment: Therapeutic Range: Moderate Anticoagulant Intensity: INR = 2.0-3.0 High Anticoagulant Intensity: INR = 2.5-3.5 Performed By: #### A NAX, IFX, PHEP, FKLLC, PE #### [facility] [address] [place] [address] [phone] Professor Of Geology: Bala Skelton MD PT Coag (PPP) [Time] 9.8 s Normal 9.1-12.3 [facility] Comment on above: Performed By: #### A NAX, IFX, PHEP, FKLLC, PE #### [facility] [address] [place] [address] [phone] Professor Of Geology: Bala Skelton MD Protime-INRon 07-19-2022 INR Coag (Bld) [Relative time] 0.9 {INR} [facility] Comment on above: Therapeutic Range: Moderate Anticoagulant Intensity: INR = 2.0-3.0 High Anticoagulant Intensity: INR = 2.5-3.5 PT Coag (PPP) [Time] 9.8 s [facility] Urinalysis w/ Microon 2021 Bilirubin, SemiQt,Ur Negative Normal NEG [facility] Comment on above: Performed By: #### A NAX, IFX, PHEP, FKLLC, PE #### [facility] [employer] [address] [place] [address] Professor Of Geology: Bala Skelton MD Blood, Urine LARGE Abnormal NEG [facility] Comment on above: Performed By: #### A NAX, IFX, PHEP, FKLLC, PE #### [address] [address] Professor Of Geology: Bala Skelton MD Casts 2 TO 5 HYALINE Normal 0-8 [facility] Comment on above: Result Comment: Refe rence range defined for non-centrifuged specimen. Performed By: #### A NAX, IFX, PHEP, FKLLC, PE #### [facility] [employer] [address] [place] [address] Professor Of Geology: Bala Skelton MD Clarity (U) Turbid Abnormal CLEAR [facility] Comment on above: Performed By: #### A NAX, IFX, PHEP, FKLLC, PE #### [facility] [employer] [address] [place] [phone] Professor Of Geology: Bala Skelton MD Color (U) Yellow Normal YEL [facility] Comment on above: Performed By: #### A NAX, IFX, PHEP, FKLLC, PE #### [facility] [employer] [address] [place] [address] Professor Of Geology: Bala Skelton MD Epithelial cells LM Ql (Urine sed) 0 TO 2 Normal 0-5 [facility] Comment on above: Performed By: #### A NAX, IFX, PHEP, FKLLC, PE #### [facility] [employer] [address] [place] [address] Professor Of Geology: Bala Skelton MD Glucose Ql (U) 1+ Abnormal NEG [facility] Comment on above: Performed By: #### A NAX, IFX, PHEP, FKLLC, PE #### [facility] [address] [place] [address] Professor Of Geology: Bala Skelton MD Ketones Ql (U) Negative Normal NEG [facility] Comment on above: Performed By: #### A NAX, IFX, PHEP, FKLLC, PE #### [address] [address] Professor Of Geology: Bala Skelton MD Leukocyte esterase Test strip Ql (U) LARGE Abnormal NEG [facility] Comment on above: Performed By: #### A NAX, IFX, PHEP, FKLLC, PE #### [address] [address] Professor Of Geology: Bala Skelton MD Nitrite,Ur Negative Normal NEG [facility] Comment on above: Performed By: #### A NAX, IFX, PHEP, FKLLC, PE #### [facility] [address] [place] [phone] Professor Of Geology: Bala Skelton MD PH,Ur 5.0 Normal 5.0-8.0 [facility] Comment on above: Performed By: #### A NAX, IFX, PHEP, FKLLC, PE #### [facility] [address] [place] [address] Professor Of Geology: Bala Skelton MD Protein Ql (U) 1+ Abnormal NEG [facility] Comment on above: Performed By: #### A NAX, IFX, PHEP, FKLLC, PE #### [facility] [employer] [address] [place] [address] Professor Of Geology: Bala Skelton MD Spec. [place],Ur 1.017 Normal 1.005-1.030 [facility] Comment on above: Performed By: #### A NAX, IFX, PHEP, FKLLC, PE #### [facility] [employer] [address] [place] [address] Professor Of Geology: Bala Skelton MD Urine RBC's 10 TO 20 Normal 0-4 [facility] Comment on above: Result Comment: Refe rence range defined for non-centrifuged specimen. Performed By: #### A NAX, IFX, PHEP, FKLLC, PE #### [address] [address] Professor Of Geology: Bala Skelton MD Urine WBC's TOO NUMEROUS TO COUNT Normal 0-5 [facility] Comment on above: Performed By: #### A NAX, IFX, PHEP, FKLLC, PE #### [facility] [employer] [address] [place] [address] Professor Of Geology: Bala Skelton MD Urobilinogen,Ur Normal Normal NORM [facility] Comment on above: Performed By: #### A NAX, IFX, PHEP, FKLLC, PE #### [facility] [employer] [address] [place] [phone] Professor Of Geology: Bala Skelton MD Urinalysis with Microscopico n 07-19-2022 Bilirubin Urine Negative NEGATIVE [facility] Casts UA 2 TO 5 HYALINE Reference range defined for non-centrifuged specimen. [facility] Color, UA Yellow Yellow [facility] Epithelial Cells UA 0 TO 2 [facility] Glucose, Ur 1+ Abnormal NEGATIVE [facility] Interpretation and review of laboratory results Abnormal [facility] Ketones Ql (U) Negative NEGATIVE [facility] Leukocyte esterase Test strip Ql (U) LARGE Abnormal NEGATIVE [facility] Nitrite, Urine Negative NEGATIVE [facility] pH, UA 5.0 5 - 8 [facility] Protein, UA 1+ Abnormal NEGATIVE [facility] RBC, UA 10 TO 20 [facility] Comment on above: Reference range defi rodger for non-centrifuged specimen. Specific [place], UA 1.017 1.005 - 1.03 [facility] Turbidity UA Turbid Abnormal Clear [facility] Urine Hgb LARGE Abnormal NEGATIVE [facility] Urobilinogen, Urine Normal Normal [facility] WBC, UA TOO NUMEROUS TO COUNT [facility] APTTon 07-18-2022 aPTT Coag (Bld) [Time] 22.8 s Normal 20.5-30.5 [facility] Comment on above: Result Comment: IV Heparin Therapy Range: 48.6-77.8 Performed By: #### A NAX, IFX, PHEP, FKLLC, PE #### [facility] [address] [place] [address] Professor Of Geology: Bala Skelton MD aPTT Coag (Bld) [Time] 22.8 s [facility] Comment on above: IV Heparin Therapy Range: 48.6-77.8 Basic Metab w/rfx MGon 07-18 (cont.) Normal [facility] Comment on above: Result Comment: Aver age GFR for 50-59 years old: 93 mL/min/1.73sq m Chronic Kidney Disease: <60 mL/min/1.73sq m Kidney failure: <15 mL/min/1.73sq m eGFR calculated using average adult body mass. Additional eGFR calculator available at: http://www.Simtrol.Magoosh/multiple_crcl_2012.htm Performed By: #### A NAX, IFX, PHEP, FKLLC, PE #### [facility] [place] [address] Professor Of Geology: Bala Skelton MD Anion gap [Moles/Vol] 13 mmol/L Normal 9-17 [facility] Comment on above: Performed By: #### A NAX, IFX, PHEP, FKLLC, PE #### [address] [address] Professor Of Geology: Bala Skelton MD Calcium [Mass/Vol] 9.4 mg/dL Normal 8.6-10.4 [facility] Comment on above: Performed By: #### A NAX, IFX, PHEP, FKLLC, PE #### [address] [address] Professor Of Geology: Bala Skelton MD Chloride [Moles/Vol] 100 mmol/L Normal 98-107 [facility] Comment on above: Performed By: #### A NAX, IFX, PHEP, FKLLC, PE #### [address] [address] Professor Of Geology: Bala Skelton MD CO2 [Moles/Vol] 24 mmol/L Normal 20-31 [facility] Comment on above: Performed By: #### A NAX, IFX, PHEP, FKLLC, PE #### [address] [address] Professor Of Geology: Bala Skelton MD Creatinine [Mass/Vol] 1.65 mg/dL High 0.50-0.90 [facility] Comment on above: Performed By: #### A NAX, IFX, PHEP, FKLLC, PE #### [address] [address] Professor Of Geology: Bala Skelton MD GFR, Amer 40 mL/min Low >60 [facility] Comment on above: Performed By: #### A NAX, IFX, PHEP, FKLLC, PE #### [facility] [employer] [address] [place] [address] Professor Of Geology: Bala Skelton MD GFR,non Amer 33 mL/min Low >60 [facility] Comment on above: Performed By: #### A NAX, IFX, PHEP, FKLLC, PE #### [address] [address] Professor Of Geology: Bala Skelton MD Glucose [Mass/Vol] 239 mg/dL High 70-99 [facility] Comment on above: Performed By: #### A NAX, IFX, PHEP, FKLLC, PE #### [facility] [employer] [address] [place] [phone] Professor Of Geology: Bala Skelton MD Potassium [Moles/Vol] 4.9 mmol/L Normal 3.7-5.3 [facility] Comment on above: Performed By: #### A NAX, IFX, PHEP, FKLLC, PE #### [address] [address] Professor Of Geology: Bala Skelton MD Sodium [Moles/Vol] 137 mmol/L Normal 135-144 [facility] Comment on above: Performed By: #### A NAX, IFX, PHEP, FKLLC, PE #### [address] [address] Professor Of Geology: Bala Skelton MD Urea nitrogen [Mass/Vol] 33 mg/dL High 6-20 [facility] Comment on above: Performed By: #### A NAX, IFX, PHEP, FKLLC, PE #### [facility] [employer] [address] [place] [phone] Professor Of Geology: Bala Skelton MD Basic Metabolic Panel w/ Ref romulo to MGon 07-18-2022 Anion gap [Moles/Vol] 13 mmol/L 9 - 17 mmol/L [facility] Calcium [Mass/Vol] 9.4 mg/dL 8.6 - 10. 4 mg/dL [facility] Chloride [Moles/Vol] 100 mmol/L 98 - 10 7 mmol/L [facility] CO2 [Moles/Vol] 24 mmol/L 20 - 31 mmol/L [facility] Creatinine [Mass/Vol] 1.65 mg/dL High 0.5 - 0.9 mg/dL [facility] GFR 40 mL/min Low 60 - PI NF mL/min [facility] GFR Non- 33 mL/min Low 60 - PINF mL/min [facility] GFR/1.73 sq M.predicted MDRD (S/P/Bld) [Vol rate/Area] [facility] Comment on above: Average GFR for 50-5 9 years old: 93 mL/min/1.73sq m Chronic Kidney Disease: <60 mL/min/1.73sq m Kidney failure: <15 mL/min/1.73sq m eGFR calculated using average adult body mass. Additional eGFR calculator available at: http://www.itembase/multiple_crcl_2012.htm Glucose [Mass/Vol] 239 mg/dL High 70 - 99 mg/dL [facility] Interpretation and review of laboratory results Abnormal [facility] Potassium [Moles/Vol] 4.9 mmol/L 3.7 - 5.3 mmol/L [facility] Sodium [Moles/Vol] 137 mmol/L 135 - 144 mmol/L [facility] Urea nitrogen (BldV) [Mass/Vol] 33 mg/dL High 6 - 20 mg/dL [facility] CBC AUTO DIFFon 07-18-2022 BASO # 0.0 103/ul Normal 0.0-0.1 [facility] Comment on above: Performed By: #### C BC #### [facility] [address] [address] [address] Delmer Rea Basophils/100 WBC (Bld) 0.2 % Normal 0.2-2.0 [facility] Comment on above: Performed By: #### C BC #### [facility] [address] [place] [address] Dr[address] Delmer Rea EO # 0.1 103/ul Normal 0.0-0.7 [facility] Comment on above: Performed By: #### C BC #### [facility] [address] [place] [address] Dr. Delmer Rea Eosinophils/100 WBC (Bld) 0.7 % Critically low 0.9-7.0 [facility] Comment on above: Performed By: #### C BC #### [facility] [address] [place] [address] Dr. Delmer Rea Erythrocyte distribution width (RBC) [Ratio] 13.1 % Normal 11.0-15.0 [facility] Comment on above: Performed By: #### C BC #### [facility] [address] [place] [address] Dr. Delmer Rea Hematocrit (Bld) [Volume fraction] 36.9 % Normal 36.0-48.0 [facility] Comment on above: Performed By: #### C BC #### [facility] [address] [place] [address] Dr. Delmer Rea Hemoglobin (Bld) [Mass/Vol] 12.5 g/dL Normal 12.0-16.0 [facility] Comment on above: Performed By: #### C BC #### [facility] [address] [place] [address] Dr. Delmer Rea IG # 0.08 10e3/ul Critically high 0.00-0.[address] [facility] Comment on above: Performed By: #### C BC #### [facility] [address] [place] [address] Dr. Delmer Rea IG % 0.6 % Critically high 0.0-0.5 [facility] Comment on above: Performed By: #### C BC #### [facility] [address] [place] [address] Dr. Delmer Rea LYMPH # 1.5 103/ul Normal 1.2-3.8 [facility] Comment on above: Performed By: #### C BC #### [facility] [address] [address] [address] Delmer Rea Lymphocytes/100 WBC (Bld) 11.0 % Critically low 20.5-60.0 [facility] Comment on above: Performed By: #### C BC #### [facility] [address] [address] [address] Delmer Rea MANUAL DIFF REQ NO Normal [facility] Comment on above: Performed By: #### C BC #### [facility] [address] [address] [address] Delmer Rea MCH (RBC) [Entitic mass] 29.0 pg Normal 26.7-34.0 [facility] Comment on above: Performed By: #### C BC #### [facility] [address] [place] [address] Dr. Delmer Rea MCHC (RBC) [Mass/Vol] 33.9 g/dL Normal 29.9-35.2 [facility] Comment on above: Performed By: #### C BC #### [facility] [address] [place] [address] Dr. Delmer Rea MCV (RBC) [Entitic vol] 85.6 fL Normal 81.0-99.0 [facility] Comment on above: Performed By: #### C BC #### [facility] [address] [place] [address] Dr. Delmer Rea MONO # 0.8 103/ul Normal 0.3-0.8 [facility] Comment on above: Performed By: #### C BC #### [facility] [address] [place] [address] Dr. Delmer Rea Monocytes/100 WBC (Bld) 5.9 % Normal 1.7-12.0 [facility] Comment on above: Performed By: #### C BC #### [facility] [address] [place] [address] Dr. Delmer Rea NEUT # 11.2 103/ul Critically high 1.4-6.5 [facility] Comment on above: Performed By: #### C BC #### [facility] [address] [address] [address] Delmer Rea Neutrophils/100 WBC (Bld) 81.6 % Critically high 43.0-75.0 [facility] Comment on above: Performed By: #### C BC #### [facility] [address] [address] [address] Delmer Rea Platelet mean volume (Bld) [Entitic vol] 10.3 fL Normal 9.5-13.5 [facility] Comment on above: Performed By: #### C BC #### [facility] [address] [address] [address] Delmer Rea PLT 362 103/ul Normal 150-450 [facility] Comment on above: Performed By: #### C BC #### [facility] [address] [address] [address] Delmer Rea RBC 4.31 106/ul Normal 4.20-5.40 [facility] Comment on above: Performed By: #### C BC #### [facility] [address] [address] [address] Delmer Rea WBC 13.7 103/ul Critically high 4.0-11.0 [facility] Comment on above: Performed By: #### C BC #### [facility] [address] [address] [address] Delmer Rea CBC with Auto Differentialon 07-18-2022 Absolute Eos # 0.08 [facility] Absolute Immature Granulocyte 0.08 [facility] Absolute Lymph # 2.13 [facility] Absolute [place] # 0.84 [facility] Basophils (Bld) [#/Vol] 0.04 10*3/uL [facility] Basophils/100 WBC (Bld) 0 % 0 - 2 % [facility] Eosinophils/100 WBC (Bld) 1 % 1 - 4 % [facility] Hematocrit (Bld) [Volume fraction] 35.4 % Low 36.3 - 47.1 % [facility] Hemoglobin (Bld) [Mass/Vol] 11.8 g/dL Low 11.9 - 15.1 g/dL [facility] Immature granulocytes/100 WBC (Bld) 1 % High 0 [facility] Interpretation and review of laboratory results Abnormal [facility] Lymphocytes/100 WBC (Bld) 17 % Low 24 - 43 % [facility] MCH (RBC) [Entitic mass] 28.6 pg 25.2 - 33.5 pg [facility] MCHC (RBC) [Mass/Vol] 33.3 g/dL 28.4 - 34.8 g/dL [facility] MCV (RBC) [Entitic vol] 85.7 fL 82.6 - 102.9 fL [facility] Monocytes/100 WBC (Bld) 7 % 3 - 12 % [facility] NRBC Automated 0.0 0.0 per 100 WBC [facility] Platelet distribution width (Bld) [Ratio] 13.2 % 11.8 - 14.4 % [facility] Platelet mean volume (Bld) [Entitic vol] 10.4 fL 8.1 - 13.5 fL [facility] Platelets (Bld) [#/Vol] 339 10*3/uL [facility] RBC (Bld) [#/Vol] 4.13 10*6/uL 3.95 - 5.1 1 m/uL [facility] Segmented neutrophils/100 WBC (Bld) 74 % High 36 - 65 % [facility] Segs Absolute 9.11 High [facility] WBC (Bld) [#/Vol] 12.3 10*3/uL High [facility] CBC with Diffon 07-18-2022 Abs. Basophil 0.04 k/uL Normal 0.00-0.20 [facility] Comment on above: Performed By: #### A NAX, IFX, PHEP, FKLLC, PE #### [facility] [employer] [facility] [place] [address] Professor Of Geology: Bala Skelton MD Abs.Imm.Granulocyte 0.08 k/uL Normal 0.00-0.30 [facility] Comment on above: Performed By: #### A NAX, IFX, PHEP, FKLLC, PE #### [address] [address] Professor Of Geology: Bala Skelton MD Abs.Neutrophil (Seg) 9.11 k/uL High 1.50-8.10 [facility] Comment on above: Performed By: #### A NAX, IFX, PHEP, FKLLC, PE #### [place] [address] Professor Of Geology: Bala Skelton MD Basophils/100 WBC (Bld) 0 % Normal 0-2 [facility] Comment on above: Performed By: #### A NAX, IFX, PHEP, FKLLC, PE #### [place] [address] Professor Of Geology: Bala Skelton MD Eosinophils (Bld) [#/Vol] 0.08 10*3/uL Normal 0.00-0.44 [facility] Comment on above: Performed By: #### A NAX, IFX, PHEP, FKLLC, PE #### [place] [address] Professor Of Geology: Bala Skelton MD Eosinophils/100 WBC (Bld) 1 % Normal 1-4 [facility] Comment on above: Performed By: #### A NAX, IFX, PHEP, FKLLC, PE #### [place] [address] Professor Of Geology: Bala Skelton MD Erythrocyte distribution width (RBC) [Ratio] 13.2 % Normal 11.8-14.4 [facility] Comment on above: Performed By: #### A NAX, IFX, PHEP, FKLLC, PE #### [place] [address] Professor Of Geology: Bala Skelton MD Hematocrit (Bld) [Volume fraction] 35.4 % Low 36.3-47.1 [facility] Comment on above: Performed By: #### A NAX, IFX, PHEP, FKLLC, PE #### [address] [address] Professor Of Geology: Bala Skelton MD Hemoglobin (Bld) [Mass/Vol] 11.8 g/dL Low 11.9-15.1 [facility] Comment on above: Performed By: #### A NAX, IFX, PHEP, FKLLC, PE #### [address] [address] Professor Of Geology: Bala Skelton MD Immature granulocytes/100 WBC (Bld) 1 % High 0 [facility] Comment on above: Performed By: #### A NAX, IFX, PHEP, FKLLC, PE #### [place] [address] Professor Of Geology: Bala Skelton MD Lymphocytes (Bld) [#/Vol] 2.13 10*3/uL Normal 1.10-3.70 [facility] Comment on above: Performed By: #### A NAX, IFX, PHEP, FKLLC, PE #### [place] [address] Professor Of Geology: Bala Skelton MD Lymphocytes/100 WBC (Bld) 17 % Low 24-43 [facility] Comment on above: Performed By: #### A NAX, IFX, PHEP, FKLLC, PE #### [place] [address] Professor Of Geology: Bala Skelton MD MCH (RBC) [Entitic mass] 28.6 pg Normal 25.2-33.5 [facility] Comment on above: Performed By: #### A NAX, IFX, PHEP, FKLLC, PE #### [address] [address] Professor Of Geology: Bala Skelton MD MCHC (RBC) [Mass/Vol] 33.3 g/dL Normal 28.4-34.8 [facility] Comment on above: Performed By: #### A NAX, IFX, PHEP, FKLLC, PE #### [address] [address] Professor Of Geology: Bala Skelton MD MCV (RBC) [Entitic vol] 85.7 fL Normal 82.6-102.9 [facility] Comment on above: Performed By: #### A NAX, IFX, PHEP, FKLLC, PE #### [address] [address] Professor Of Geology: Bala Skelton MD Monocytes (Bld) [#/Vol] 0.84 10*3/uL Normal 0.10-1.20 [facility] Comment on above: Performed By: #### A NAX, IFX, PHEP, FKLLC, PE #### [address] [address] Professor Of Geology: Bala Skelton MD Monocytes/100 WBC (Bld) 7 % Normal 3-12 [facility] Comment on above: Performed By: #### A NAX, IFX, PHEP, FKLLC, PE #### [address] [address] Professor Of Geology: Bala Skelton MD Neutrophil (Seg) 74 % High 36-65 [facility] Comment on above: Performed By: #### A NAX, IFX, PHEP, FKLLC, PE #### [address] [address] Professor Of Geology: Bala Skelton MD NRBC Automated 0.0 per 100 WBC Normal 0.0 [facility] Comment on above: Performed By: #### A NAX, IFX, PHEP, FKLLC, PE #### [address] [address] Professor Of Geology: Bala Skelton MD Platelet mean volume (Bld) [Entitic vol] 10.4 fL Normal 8.1-13.5 [facility] Comment on above: Performed By: #### A NAX, IFX, PHEP, FKLLC, PE #### [facility] [employer] [address] [place] [address] Professor Of Geology: Bala Skelton MD Platelets (Bld) [#/Vol] 339 10*3/uL Normal 138-453 [facility] Comment on above: Performed By: #### A NAX, IFX, PHEP, FKLLC, PE #### [address] [address] Professor Of Geology: Bala Skelton MD RBC (Bld) [#/Vol] 4.13 10*6/uL Normal 3.95-5.11 [facility] Comment on above: Performed By: #### A NAX, IFX, PHEP, FKLLC, PE #### [address] [address] Professor Of Geology: Bala Skelton MD WBC (Bld) [#/Vol] 12.3 10*3/uL High 3.5-11.3 [facility] Comment on above: Performed By: #### A NAX, IFX, PHEP, FKLLC, PE #### [address] [address] Professor Of Geology: Bala Skelton MD CT ABD/PELVIS WO CONon [...] MARAH ALCANTAR Date: 2022-07-18 12:01 Normal [facility] Covid-19 PCR (CVDTB)on 07-07 SARS-CoV-2 (COVID-19) RNA KASI+probe Ql (Unsp spec) Not detected Normal NOT DETECTED [facility] Comment on above: Result Comment: When diagnostic [...] for this test is supported by the [place] of Health and Human Service's declaration that [...] DLDL, CON, LIPID, T7, CMP, TSH #### [facility] [address] [place] [address] Dr. Delmer Rea ER URINE PROFILEon 2 Bilirubin Ql (U) Negative Normal NEGATIVE [facility] Comment on above: Performed By: #### U MICRO, ERUR #### [facility] [address] [place] [address] Dr. Delmer Rea Clarity (U) SL CLOUDY Abnormal CLEAR [facility] Comment on above: Performed By: #### U MICRO, ERUR #### [facility] [address] [place] [address] Dr. Delmer Rea Color (U) LT. YELLOW Normal YELLOW [facility] Comment on above: Performed By: #### U MICRO, ERUR #### [facility] [address] [place] [address] Dr. Delmer Rea ERUAHD A micrscopic examination will be performed if indicated. Normal [facility] Comment on above: Performed By: #### U MICRO, ERUR #### [facility] [address] [place] [address] Dr. Delmer Rea Glucose Ql (U) 1000 mg/dl Abnormal NEGATIVE [facility] Comment on above: Performed By: #### U MICRO, ERUR #### [facility] [address] [place] [address] Dr. Delmer Rea Hemoglobin Ql (U) LARGE Abnormal NEGATIVE [facility] Comment on above: Performed By: #### U MICRO, ERUR #### [facility] [address] [place], [place] [id number] Dr. Delmer Rea Ketones Ql (U) Negative Normal NEGATIVE [facility] Comment on above: Performed By: #### U MICRO, ERUR #### [facility] [address] [address] [address] Delmer Rea LEUKOCYTES SMALL Abnormal NEGATIVE [facility] Comment on above: Performed By: #### U MICRO, ERUR #### [facility] [address] [address] [address] Delmer Rea Nitrite Ql (U) Positive Abnormal NEGATIVE [facility] Comment on above: Performed By: #### U MICRO, ERUR #### [facility] [address] [address] [address] Delmer Rea pH (U) 5.5 [pH] Normal 5-9 [facility] Comment on above: Performed By: #### U MICRO, ERUR #### [facility] [address] [place] [address] Dr. Delmer Rea SPEC GRAVITY 1.020 Normal 1.005-<=1.025 [facility] Comment on above: Performed By: #### U MICRO, ERUR #### [facility] [address] [address] [address] Delmer Rea UA PROTEIN TRACE Normal NEGATIVE/ TRACE [facility] Comment on above: Performed By: #### U MICRO, ERUR #### [facility] [address] [address] [address] Delmer Rea UR MICRO IND INDICATED Normal [facility] Comment on above: Performed By: #### U MICRO, ERUR #### [facility] [address] [address] [address] Delmer Rea Urobilinogen Qn (U) 0.2 {Juanita'U}/dL Normal 0.2 - 1. 0 [facility] Comment on above: Performed By: #### U MICRO, ERUR #### [facility] [address] [place] [address] Dr. Delmer Rea No Panel Informationon 07-18 [facility] POC Glucose Fingerstickon Glucose [Mass/Vol] 227 mg/dL High 65 - 105 mg/dL [facility] Interpretation and review of laboratory results Abnormal [facility] Glucose [Mass/Vol] 189 mg/dL High 65 - 105 mg/dL [facility] Interpretation and review of laboratory results Abnormal [facility] POCT glucoseOrdered By: Jason Swenson on 07-18-2022 Glucose [Mass/Vol] 189 mg/dL [facility] Interpretation and review of laboratory results Normal [facility] PROF CHEM 8 (BAS METB)on Anion gap [Moles/Vol] 13.6 mmol/L Normal [facility] Comment on above: Performed By: #### U MICRO, ERUR #### [facility] [address] [address] [address] Delmer Rea Calcium [Mass/Vol] 9.6 mg/dL Normal 8.5-10.1 [facility] Comment on above: Performed By: #### U MICRO, ERUR #### [facility] [address] [address] [address] Delmer Rea Chloride [Moles/Vol] 98 mmol/L Normal 98-107 [facility] Comment on above: Performed By: #### U MICRO, ERUR #### [facility] [address] [address] [address] Delmer Rea CO2 [Moles/Vol] 26.0 mmol/L Normal 21.0-32.0 [facility] Comment on above: Performed By: #### U MICRO, ERUR #### [facility] [address] [address] [address] Delmer Rea Creatinine [Mass/Vol] 1.45 mg/dL Critically high 0.55-1.02 [facility] Comment on above: Performed By: #### U MICRO, ERUR #### [facility] [address] [address] [address] Delmer Rea EGFR-AF FIJIAN 46 mL/min/1.73m2 Critically low >=60 [facility] Comment on above: Performed By: #### U MICRO, ERUR #### [facility] [address] [address] [address] Delmer Rea EGFR-NON AF FIJIAN 38 mL/min/1.73m2 Critically low >=60 [facility] Comment on above: Performed By: #### U MICRO, ERUR #### [facility] [address] [address] [address] Delmer Rea Glucose [Mass/Vol] 314 mg/dL Critically high 74-106 T [facility] Comment on above: Performed By: #### U MICRO, ERUR #### [facility] [address] [address] [address] Delmer Rea Potassium [Moles/Vol] 4.6 mmol/L Normal 3.5-5.1 [facility] Comment on above: Result Comment: spec imen slightly hemolyzed Performed By: #### U MICRO, ERUR #### [facility] [address] [address] [address] Delmer Rea Sodium [Moles/Vol] 133 mmol/L Critically low 136-145 Th [facility] Comment on above: Performed By: #### U MICRO, ERUR #### [facility] [address] [address] [address] Delmer Rea Urea nitrogen [Mass/Vol] 35.0 mg/dL Critically high 7.0-18.0 [facility] Comment on above: Performed By: #### U MICRO, ERUR #### [facility] [address] [address] [address] Delmer Rea Urea nitrogen/Creatinine [Mass ratio] 24.1 mg/mg Normal [facility] Comment on above: Performed By: #### U MICRO, ERUR #### [facility] [address] [place] [address] Dr. Delmer Rea PTon 07-18-2022 INR Coag (PPP) [Relative time] 0.9 {INR} Normal [facility] Comment on above: Result Comment: Therapeutic Range: Moderate Anticoagulant Intensity: INR = 2.0-3.0 High Anticoagulant Intensity: INR = 2.5-3.5 Performed By: #### A NAX, IFX, PHEP, FKLLC, PE #### [facility] [address] [place], [place] [id number] Professor Of Geology: Bala Skelton MD PT Coag (PPP) [Time] 10.0 s Normal 9.1-12.3 [facility] Comment on above: Performed By: #### A NAX, IFX, PHEP, FKLLC, PE #### [facility] [address] [place], [place] [id number] Professor Of Geology: Bala Skelton MD Protime-INRon 07-18-2022 INR Coag (Bld) [Relative time] 0.9 {INR} [facility] Comment on above: Therapeutic Range: Moderate Anticoagulant Intensity: INR = 2.0-3.0 High Anticoagulant Intensity: INR = 2.5-3.5 PT Coag (PPP) [Time] 10 s [facility] URINE MICROSCOPIC ONLYon BACTERIA SMALL Abnormal NONE SEEN [facility] Comment on above: Performed By: #### U MICRO, ERUR #### [facility] [address] [place] [address] Dr. Delmer Rea Bacteria identified Cx Nom (U) INDICATED Normal [facility] Comment on above: Performed By: #### U MICRO, ERUR #### [facility] [address] [address] [address] Delmer Rea CAST NONE SEEN Normal NONE SEEN [facility] Comment on above: Performed By: #### U MICRO, ERUR #### [facility] [address] [address] [address] Delmer Rea Crystals LM Nom (Urine sed) NONE SEEN Normal NONE SEEN [facility] Comment on above: Performed By: #### U MICRO, ERUR #### [facility] [address] [place] [address] Dr. Delmer Rea Epithelial cells LM Ql (Urine sed) FEW Abnormal NONE SEEN /RARE [facility] Comment on above: Performed By: #### U MICRO, ERUR #### [facility] [address] [address] [address] Delmer Rea MUCOUS NONE SEEN Normal NONE SEEN [facility] Comment on above: Performed By: #### U MICRO, ERUR #### [facility] [address] [place] [address] Dr. Delmer Rea RBC 20-50 Abnormal 0-2 [facility] Comment on above: Performed By: #### U MICRO, ERUR #### [facility] [address] [address] [address] Delmer Rea WBC 10-20 Abnormal NONE SEEN [facility] Comment on above: Performed By: #### U MICRO, ERUR #### [facility] [address] [address] [address] Delmer Rea ALEXANDRE by IFAon 04-18-2022 Antinuclear Antibodies, IFA Negative Normal [facility] Comment on above: Result Comment: Nega tive <1:80 Borderline 1:80 Positive >1:80 ICAP nomenclature: AC-0 For more information about Hep-2 cell patterns use ANApatterns.org, the official website for the International Consensus on Antinuclear Antibody (ALEXANDRE) Patterns (ICAP). Performed By: #### U MICRO, ERUR #### [facility] [address] [place] [address] Dr. Delmer Rea ANTISTREPTOLYSIN O AB (ASO)o n 04-16-2022 Antistreptolysin O Ab 23.8 IU/mL Normal 0.0-200.0 [facility] Comment on above: Performed By: #### U MICRO, ERUR #### [facility] [address] [place] [address] Dr. Delmer Rea INSULINon 04-16-2022 Insulin 96.9 uIU/mL Critically high 2.6-24.9 [facility] Comment on above: Performed By: #### L IPA, DLDL, CON, LIPID, T7, CMP, TSH #### [facility] [address] [place] [address] Dr. Delmer Rea RHEUMATOID FACTORon 04-16-20 22 RA Latex Turbid. 13.5 IU/mL Normal <14.0 [facility] Comment on above: Performed By: #### L IPA, DLDL, CON, LIPID, T7, CMP, TSH #### [facility] [address] [place] [address] Dr. Delmer Rea BNPon 04-15-2022 Natriuretic peptide B (Bld) [Mass/Vol] 168.0 pg/mL Normal <=900.0 [facility] Comment on above: Performed By: #### L IPA, DLDL, CON, LIPID, T7, CMP, TSH #### [facility] [address] [place] [address] Dr. Delmer Rea CBC AUTO DIFFon 04-15-2022 BASO # 0.0 103/ul Normal 0.0-0.1 [facility] Comment on above: Performed By: #### L IPA, DLDL, CON, LIPID, T7, CMP, TSH #### [facility] [address] [place] [address] Dr. Delmer Rea Basophils/100 WBC (Bld) 0.4 % Normal 0.2-2.0 [facility] Comment on above: Performed By: #### L IPA, DLDL, CON, LIPID, T7, CMP, TSH #### [facility] [address] [place] [address] Dr. Delmer Rea EO # 0.1 103/ul Normal 0.0-0.7 [facility] Comment on above: Performed By: #### L IPA, DLDL, CON, LIPID, T7, CMP, TSH #### [facility] [address] [place] [address] Dr. Delmer Rea Eosinophils/100 WBC (Bld) 2.3 % Normal 0.9-7.0 [facility] Comment on above: Performed By: #### L IPA, DLDL, CON, LIPID, T7, CMP, TSH #### [facility] [address] [place] [address] Dr. Delmer Rea Erythrocyte distribution width (RBC) [Ratio] 11.9 % Normal 11.0-15.0 [facility] Comment on above: Performed By: #### L IPA, DLDL, CON, LIPID, T7, CMP, TSH #### [facility] [address] [place] [address] Dr. Delmer Rea Hematocrit (Bld) [Volume fraction] 37.8 % Normal 36.0-48.0 [facility] Comment on above: Performed By: #### L IPA, DLDL, CON, LIPID, T7, CMP, TSH #### [facility] [address] [place] [address] Dr. Delmer Rea Hemoglobin (Bld) [Mass/Vol] 12.7 g/dL Normal 12.0-16.0 [facility] Comment on above: Performed By: #### L IPA, DLDL, CON, LIPID, T7, CMP, TSH #### [facility] [address] [place] [address] Dr. Delmer Rea IG # 0.01 10e3/ul Normal 0.00-0.03 [facility] Comment on above: Performed By: #### L IPA, DLDL, CON, LIPID, T7, CMP, TSH #### [facility] [address] [place] [address] Dr. Delmer Rea IG % 0.2 % Normal 0.0-0.5 [facility] Comment on above: Performed By: #### L IPA, DLDL, CON, LIPID, T7, CMP, TSH #### [facility] [address] [place] [address] Dr. Delmer Rea LYMPH # 1.8 103/ul Normal 1.2-3.8 [facility] Comment on above: Performed By: #### L IPA, DLDL, CON, LIPID, T7, CMP, TSH #### [facility] [address] [place] [address] Dr. Delmer Rea Lymphocytes/100 WBC (Bld) 34.6 % Normal 20.5-60.0 [facility] Comment on above: Performed By: #### L IPA, DLDL, CON, LIPID, T7, CMP, TSH #### [facility] [address] [place] [address] Dr. Delmer Rea MANUAL DIFF REQ NO Normal [facility] Comment on above: Performed By: #### L IPA, DLDL, CON, LIPID, T7, CMP, TSH #### [facility] [address] [place] [address] Dr. Delmer Rea MCH (RBC) [Entitic mass] 28.7 pg Normal 26.7-34.0 [facility] Comment on above: Performed By: #### L IPA, DLDL, CON, LIPID, T7, CMP, TSH #### [facility] [address] [place] [address] Dr. Delmer Rea MCHC (RBC) [Mass/Vol] 33.6 g/dL Normal 29.9-35.2 [facility] Comment on above: Performed By: #### L IPA, DLDL, CON, LIPID, T7, CMP, TSH #### [facility] [address] [place] [address] Dr. Delmer Rea MCV (RBC) [Entitic vol] 85.5 fL Normal 81.0-99.0 [facility] Comment on above: Performed By: #### L IPA, DLDL, CON, LIPID, T7, CMP, TSH #### [facility] [address] [place] [address] Dr. Delmer Rea MONO # 0.5 103/ul Normal 0.3-0.8 [facility] Comment on above: Performed By: #### L IPA, DLDL, CON, LIPID, T7, CMP, TSH #### [facility] [address] [place] [address] Dr. Delmer Rea Monocytes/100 WBC (Bld) 8.6 % Normal 1.7-12.0 [facility] Comment on above: Performed By: #### L IPA, DLDL, CON, LIPID, T7, CMP, TSH #### [facility] [address] [place] [address] Dr. Delmer Rea NEUT # 2.8 103/ul Normal 1.4-6.5 [facility] Comment on above: Performed By: #### L IPA, DLDL, CON, LIPID, T7, CMP, TSH #### [facility] [address] [place] [address] Dr. Delmer Rea Neutrophils/100 WBC (Bld) 53.9 % Normal 43.0-75.0 [facility] Comment on above: Performed By: #### L IPA, DLDL, CON, LIPID, T7, CMP, TSH #### [facility] [address] [address] [address] Delmer Rea Platelet mean volume (Bld) [Entitic vol] 10.2 fL Normal 9.5-13.5 [facility] Comment on above: Performed By: #### L IPA, DLDL, CON, LIPID, T7, CMP, TSH #### [facility] [address] [address] [address] Delmer Rea PLT 326 103/ul Normal 150-450 [facility] Comment on above: Performed By: #### L IPA, DLDL, CON, LIPID, T7, CMP, TSH #### [facility] [address] [place] [address] Dr. Delmer Rea RBC 4.42 106/ul Normal 4.20-5.40 [facility] Comment on above: Performed By: #### L IPA, DLDL, CON, LIPID, T7, CMP, TSH #### [facility] [address] [place] [address] Dr. Delmer Rea WBC 5.2 103/ul Normal 4.0-11.0 [facility] Comment on above: Performed By: #### L IPA, DLDL, CON, LIPID, T7, CMP, TSH #### [facility] [address] [place] [address] Dr. Delmer Rea CRPon 04-15-2022 CRP [Mass/Vol] mg/L Normal <=1.0 [facility] Comment on above: Performed By: #### L IPA, DLDL, CON, LIPID, T7, CMP, TSH #### [facility] [address] [place] [address] Dr. Delmer Rea FREE THYROXINE INDEX T7on FTI 5.07 Critically high 1.30-4.50 [facility] Comment on above: Performed By: #### L IPA, DLDL, CON, LIPID, T7, CMP, TSH #### [facility] [address] [address] [address] Delmer Rea T3U 37.0 % Normal 30.0-39.0 [facility] Comment on above: Performed By: #### L IPA, DLDL, CON, LIPID, T7, CMP, TSH #### [facility] [address] [address] [address] Delmer Rea T4 [Mass/Vol] 13.70 ug/dL Normal 4.80-13.90 [facility] Comment on above: Performed By: #### L IPA, DLDL, CON, LIPID, T7, CMP, TSH #### [facility] [address] [address] [address] Delmer Rea GLYCOHEMOGLOBIN A1Con 2021 ADA RECOMMENDATION SEE BELOW Normal [facility] Comment on above: Result Comment: ADA RECOMMENDED LIMIT 4.0 - 6.0 ADA THERAPEUTIC TARGET < 7.0 ACTION SUGGESTED > 7.0 Performed By: #### L IPA, DLDL, CON, LIPID, T7, CMP, TSH #### [facility] [address] [address] [address] Delmer Rea Glucose [Mass/Vol] 174 mg/dL Normal [facility] Comment on above: Performed By: #### L IPA, DLDL, CON, LIPID, T7, CMP, TSH #### [facility] [address] [address] [address] Delmer Rea HbA1c (Bld) [Mass fraction] 7.7 % Critically high 4.5-6.2 [facility] Comment on above: Performed By: #### L IPA, DLDL, CON, LIPID, T7, CMP, TSH #### [facility] [address] [address] [address] Delmer Rea IRONon 04-15-2022 Iron [Mass/Vol] 84.0 ug/dL Normal 50.0-170.0 [facility] Comment on above: Performed By: #### U MICRO, ERUR #### [facility] [address] [address] [address] Delmer Rea LIPID PROFILEon 04-15-2022 CHOL-HDL RATIO NORM SEE BELOW Normal [facility] Comment on above: Result Comment: 3.3 - 4.4 LOW RISK 4.4 - 7.1 AVERAGE RISK 7.1 - 11.0 MODERATE RISK >11.0 HIGH RISK Performed By: #### L IPA, DLDL, CON, LIPID, T7, CMP, TSH #### [facility] [address] [address] [address] Delmer Rea Cholesterol [Mass/Vol] 239 mg/dL Critically high <=200 [facility] Comment on above: Performed By: #### L IPA, DLDL, CON, LIPID, T7, CMP, TSH #### [facility] [address] [address] [address] Delmer Rea Cholesterol in HDL [Mass/Vol] 43 mg/dL Normal 40-60 [facility] Comment on above: Performed By: #### L IPA, DLDL, CON, LIPID, T7, CMP, TSH #### [facility] [address] [address] [address] Delmer Rea Cholesterol in LDL [Mass/Vol] 131.8 mg/dL Normal [facility] Comment on above: Performed By: #### L IPA, DLDL, CON, LIPID, T7, CMP, TSH #### [facility] [address] [address] [address] Delmer Rea Cholesterol.total/Ch olesterol in HDL [Mass ratio] 5.6 {ratio} Normal [facility] Comment on above: Performed By: #### L IPA, DLDL, CON, LIPID, T7, CMP, TSH #### [facility] [address] [address] [address] Delmer Rea HDL NORMAL > or = 60 mg/dl - LO W CARDIOVASCULAR RISK <40 mg/dl - HIGH CARDIOVASCULAR RISK Normal [facility] Comment on above: Performed By: #### L IPA, DLDL, CON, LIPID, T7, CMP, TSH #### [facility] [address] [address] [address] Delmer Rea LDL CALC NORMAL SEE BELOW Normal [facility] Comment on above: Result Comment: <100 mg/dl OPTIMAL 100 - 129 mg/dl NEAR OR ABOVE OPTIMAL 130 - 159 mg/dl BORDERLINE HIGH 160 - 189 mg/dl HIGH >190 mg/dl VERY HIGH Performed By: #### L IPA, DLDL, CON, LIPID, T7, CMP, TSH #### [facility] [address] [place] [address] Dr. Delmer Rea Triglyceride [Mass/Vol] 321 mg/dL Critically high <=150 [facility] Comment on above: Performed By: #### L IPA, DLDL, CON, LIPID, T7, CMP, TSH #### [facility] [address] [place] [address] Dr. Delmer Rea VLDL CALC 64.2 mg/dL Normal [facility] Comment on above: Performed By: #### L IPA, DLDL, CON, LIPID, T7, CMP, TSH #### [facility] [address] [place] [address] Dr. Delmer Rea PROF 14(COMP METB)on 022 Albumin [Mass/Vol] 3.6 g/dL Normal 3.4-5.0 [facility] Comment on above: Performed By: #### L IPA, DLDL, CON, LIPID, T7, CMP, TSH #### [facility] [address] [place] [address] Dr. Delmer Rea Albumin/Globulin [Mass ratio] 0.9 {ratio} Normal [facility] Comment on above: Performed By: #### L IPA, DLDL, CON, LIPID, T7, CMP, TSH #### [facility] [address] [place] [address] Dr. Delmer Rea ALP [Catalytic activity/Vol] 98 U/L Normal 46-116 [facility] Comment on above: Performed By: #### L IPA, DLDL, CON, LIPID, T7, CMP, TSH #### [facility] [address] [place] [address] Dr. Delmer Rea ALT [Catalytic activity/Vol] 21 U/L Normal 14-59 [facility] Comment on above: Performed By: #### L IPA, DLDL, CON, LIPID, T7, CMP, TSH #### [facility] [address] [place], [place] [id number] Dr. Delmer Rea Anion gap [Moles/Vol] 15.8 mmol/L Normal [facility] Comment on above: Performed By: #### L IPA, DLDL, CON, LIPID, T7, CMP, TSH #### [facility] [address] [place] [address] Dr. Delmer Rea AST [Catalytic activity/Vol] 10 U/L Critically low 15-37 [facility] Comment on above: Performed By: #### L IPA, DLDL, CON, LIPID, T7, CMP, TSH #### [facility] [address] [address] [address] Delmer Rea Bilirubin [Mass/Vol] 0.6 mg/dL Normal 0.2-1.0 [facility] Comment on above: Performed By: #### L IPA, DLDL, CON, LIPID, T7, CMP, TSH #### [facility] [address] [place] [address] Dr. Delmer Rea Calcium [Mass/Vol] 9.4 mg/dL Normal 8.5-10.1 [facility] Comment on above: Performed By: #### L IPA, DLDL, CON, LIPID, T7, CMP, TSH #### [facility] [address] [place] [address] Dr. Delmer Rea Chloride [Moles/Vol] 105 mmol/L Normal 98-107 [facility] Comment on above: Performed By: #### L IPA, DLDL, CON, LIPID, T7, CMP, TSH #### [facility] [address] [place] [address] Dr. Delmer Rea CO2 [Moles/Vol] 26.2 mmol/L Normal 21.0-32.0 [facility] Comment on above: Performed By: #### L IPA, DLDL, CON, LIPID, T7, CMP, TSH #### [facility] [address] [place] [address] Dr. Delmer Rea Creatinine [Mass/Vol] 1.26 mg/dL Critically high 0.55-1.02 [facility] Comment on above: Performed By: #### L IPA, DLDL, CON, LIPID, T7, CMP, TSH #### [facility] [address] [address] [address] Delmer Rea EGFR-AF FIJIAN 54 mL/min/1.73m2 Critically low >=60 [facility] Comment on above: Performed By: #### L IPA, DLDL, CON, LIPID, T7, CMP, TSH #### [facility] [address] [address] [address] Delmer Rea EGFR-NON AF FIJIAN 45 mL/min/1.73m2 Critically low >=60 [facility] Comment on above: Performed By: #### L IPA, DLDL, CON, LIPID, T7, CMP, TSH #### [facility] [address] [place] [address] Dr. Delmer Rea Globulin (S) [Mass/Vol] 3.9 g/dL Normal [facility] Comment on above: Performed By: #### L IPA, DLDL, CON, LIPID, T7, CMP, TSH #### [facility] [address] [address] [address] Delmer Rea Glucose [Mass/Vol] 125 mg/dL Critically high 74-106 T [facility] Comment on above: Performed By: #### L IPA, DLDL, CON, LIPID, T7, CMP, TSH #### [facility] [address] [place] [address] Dr. Delmer Rea Potassium [Moles/Vol] 4.0 mmol/L Normal 3.5-5.1 [facility] Comment on above: Performed By: #### L IPA, DLDL, CON, LIPID, T7, CMP, TSH #### [facility] [address] [address] [address] Delmer Rea Protein [Mass/Vol] 7.5 g/dL Normal 6.4-8.2 [facility] Comment on above: Performed By: #### L IPA, DLDL, CON, LIPID, T7, CMP, TSH #### [facility] [address] [place] [address] Dr. Delmer Rea Sodium [Moles/Vol] 143 mmol/L Normal 136-145 [facility] Comment on above: Performed By: #### L IPA, DLDL, CON, LIPID, T7, CMP, TSH #### [facility] [address] [place] [address] Dr. Delmer Rea Urea nitrogen [Mass/Vol] 34.0 mg/dL Critically high 7.0-18.0 [facility] Comment on above: Performed By: #### L IPA, DLDL, CON, LIPID, T7, CMP, TSH #### [facility] [address] [address] [address] Delmer Rea Urea nitrogen/Creatinine [Mass ratio] 27.0 mg/mg Normal [facility] Comment on above: Performed By: #### L IPA, DLDL, CON, LIPID, T7, CMP, TSH #### [facility] [address] [place] [address] Dr. Delmer Rea TSHon 04-15-2022 TSH 0.009 uIU/mL Critically low 0.358-3.740 [facility] Comment on above: Performed By: #### L IPA, DLDL, CON, LIPID, T7, CMP, TSH #### [facility] [address] [place] [address] Dr. Delmer Rea TSH RANGE SEE BELOW Normal [facility] Comment on above: Result Comment: <0.3 4 UIU/ml HYPERTHYROID 0.34-5.60 UIU/ml EUTHYROID >5.60 UIU/ml HYPOTHYROID Performed By: #### L IPA, DLDL, CON, LIPID, T7, CMP, TSH #### [facility] [address] [place] [address] Dr. Delmer Rea URIC ACID SERUMon 04-15-2022 Urate [Mass/Vol] 7.1 mg/dL Critically high 2.6-6.0 [facility] Comment on above: Performed By: #### L IPA, DLDL, CON, LIPID, T7, CMP, TSH #### [facility] [address] [place] [address] Dr. Delmer Rea VITAMIN D 25 OHon 04-15-2022 VIT D 25-OH 23.8 ng/mL Normal [facility] Comment on above: Performed By: #### U MICRO, ERUR #### [facility] [address] [address] [address] Delmer Rea VIT D RANGES SEE BELOW Normal [facility] Comment on above: Result Comment: <20 ng/mL Vit D deficient 20 - <30 ng/mL Vit D insufficient 30 - 100 ng/mL Vit D sufficient >100 ng/mL Potential Toxicity Performed By: #### U MICRO, ERUR #### [facility] [address] [address] [address] Delmer Bowman 11-09-2021 CNPN Telephone (GENBMI) ASA THOMPSON ([id number]) 1970 F Date Time Provider Department 11/09/21 [...] Encounter Status:Closed by ABRAHAM PACHECO on 11/09/21 [facility] ([id number]) 1970 F Date Time Provider Department 10/05/21 [...] 06/21/2021 Encounter Status:Closed by ABRAHAM PACHECO on 11/30/21 [facility] 07-29-2021 CNPN Telephone (GENBMI) ASA THOMPSON ([id number]) 1970 F Date Time Provider Department 07/29/21 [facility], we recorded the [...] Encounter Status:Closed by ABRAHAM PACHECO on 07/29/21 [facility]20[facility] ASA THOMPS[facility] ([id number]) 1970 F Date Time Provider Department 07/14/21 ABRAHAM PACHECO [facility] During your visit today, we recorded the following information about you: Abraham Pacheco RN 07/14/2021 3:04 PM Addendum Follow up call placed to patient, no answer phone; left voice message with my call back phone number. [phone] Cancelled surgery scheduled for 07/15/21. No call [...] Encounter Status:Closed by ABRAHAM PACHECO on 07/14/21 [facility] Telephone (GSPSMN) MARLENYASA James ([id number]) 1970 F Date Time Provider Department 07/14/21 JEANNINE TAMEZ GSPS[facility] During your visit today, we recorded the following information about you: Jeannine Tamez, PhD 07/14/2021 1:02 PM Signed [facility] Attempted to [...] Encounter Status:Closed by JEANNINE TAMEZ on 07/14/21 [facility] Gracie 07-13-2021 CNPN Telephone (GENBMI) ASA THOMPSON ([id number]) 1970 F Date Time Provider Department 07/13/21 [...] Encounter Status:Closed by ABRAHAM PACHECO on 07/13/21 [facility]20[facility] ASA THOMPSON ([id number]) 1970 F Date Time Provider Department 07/08/21 [...] protein shakes. Patient reports has not read MyChart message from Nutrition but will do so [...] Encounter Status:Closed by ABRAHAM PACHECO on 07/15/21 [facility] Telephone (VotizenI) ASA THOMPSON ([id number]) 1970 F Date Time Provider Department 07/08/21 ABRAHAM PACHECO [facility] During your visit today, we recorded the [...] Encounter Status:Closed by ABRAHAM PACHECO on 07/08/21 [facility]07-20[facility] MARLENYASA James ([id number]) 1970 F Date Time Provider Department 07/07/21 ABRAHAM PACHECO During your visit today, we [...] Encounter Status:Closed by ABRAHAM PACHECO on 07/07/21 [facility] 07-05-2021 CNPN Telephone (GENBMI) ASA THOMPSON ([id number]) 1970 F Date Time Provider Department 07/05/21 ABRAHAM PACHECO [facility] During your visit today, [...] Encounter Status:Closed by ABRAHAM PACHECO on 07/06/21 [facility] Gracie 06-21-2021 CNPN Telephone ([facility]) LUCASA SPANN ([id number]) 1970 F Date Time Provider Department 06/21/21 ABRAHAM PACHECO During your visit today, we [...] arrival time. Other Instructions Reviewed: Gave patient [phone] My Chart Support line phone number Skin [...] daily. - (more content not included)... Normal [facility] 05-25-2021 CNPN Telephone (GENBMI) ASA THOMPSON ([id number]) 1970 F Date Time Provider Department 05/25/21 ABRAHAM PACHECO During your visit today, we recorded the following information about you: Abraham Pacheco RN 05/25/2021 4:23 PM Signed [facility] COORDINATION SURGERY APPROVAL CALL Received e-mail confirmation of insurance approval for bariatric surgery.Pre-operative call placed to the patient, this RN spoke with patient and agreed upon a surgery date of July 15 2021. Surgical episode request sent to [facility] surgery scheduling. -Patient instructed to start pre-op [...] instructed to fax FMLA forms to medical lab technician and allow 7-10 days for completion. Radha [...] Encounter Status:Closed by ABRAHAM PACHECO on 05/25/21 [facility] 04-26-2021 CNCO Letter Text [facility] 04-21-2021 CNCO Letter Text Normal [facility] 04-12-2021 CNCO Letter Text [facility] Vital Signs Date Time Vital Sign Value Performing Clinician Facility 12-27-2022 15:00-0500 Body height 160.02 cm Aime Capone Other [facility] Other 12-27-2022 15:00-0500 Body mass index (BMI) [Ratio] 44.63 kg/m2 Aime Capone Other [facility] Other 12-27-2022 15:00-0500 Body weight 114.31 kg Aime Capone Other [facility] Other 12-27-2022 15:00-0500 Diastolic blood pressure 61 mm[Hg] Aime Capone Other [facility] Other 12-27-2022 15:00-0500 Respiratory rate 18 /min Aime Capone Other [facility] Other 12-27-2022 15:00-0500 SaO2% (BldA) [Mass fraction] 97 % Aime Capone Other [facility] Other 12-27-2022 15:00-0500 Systolic blood pressure 127 mm[Hg] Aime Capone Other [facility] Other 07-26-2022 10:45-0400 Body temperature 98.2 [degF] Bishnu Horner MD Work Phone: [employer] 07-26-2022 10:45-0400 Diastolic blood pressure 65 mm[Hg] Bishnu Horner MD Work Phone: [facility] [employer] 07-26-2022 10:45-0400 Heart rate 84 /min Bishnu Horner MD Work Phone: [facility] 07-26-2022 10:45-0400 Respiratory rate 16 /min Bishnu Horner MD Work Phone: [employer] 07-26-2022 10:45-0400 SaO2% (BldA) [Mass fraction] 98 % Bishnu Horner MD Work Phone: [facility] 07-26-2022 10:45-0400 Systolic blood pressure 161 mm[Hg] Bishnu Horner MD Work Phone: [employer] 07-25-2022 18:02-0400 Body height 165.1 cm Bishnu Horner MD Work Phone: [facility] [employer] 07-25-2022 18:02-0400 Body mass index (BMI) [Ratio] 39.94 kg/m2 Bishnu Horner MD Work Phone: [facility] [employer] 07-25-2022 18:02-0400 Body weight 108.86 kg Bishnu Horner MD Work Phone: [facility] [employer] 07-22-2022 11:28-0400 Body temperature 98.2 [degF] Aime Bird MD [facility] [employer] 07-22-2022 11:28-0400 Diastolic blood pressure 72 mm[Hg] Aime Bird MD [facility] [employer] 07-22-2022 11:28-0400 Heart rate 92 /min Aime Bird MD [facility] [employer] 07-22-2022 11:28-0400 Respiratory rate 12 /min [facility] 11:28-0400 SaO2% (BldA) [Mass fraction] 96 % Aime Bird MD [facility] [employer] 07-22-2022 11:28-0400 Systolic blood pressure 155 mm[Hg] Aime Bird MD [facility] [employer] 07-18-2022 20:54-0400 Body height 165.1 cm Aime Bird MD [facility] [employer] 07-18-2022 20:54-0400 Body mass index (BMI) [Ratio] 42.56 kg/m2 Aime Bird MD [facility] [employer] 07-18-2022 20:54-0400 Body weight 116 kg Aime Bird MD [facility] [place] HOSPITAL Encounters Encounter Date Encounter Type Care Provider Facility Start: 09-02-2024 End: 09-02-2024 ambulatory EHAB [facility] Start: 08-06-2024 End: 08-06-2024 Refill Karen Boni Sharif MARKETING FINANCE MANAGER-REGIONAL OPERATIONS MANAGER Work Phone: [facility] Internal Medicine Start: 08-03-2024 End: 08-06-2024 Evaluation and management of inpatient GARRY Sakshi RAMOS [facility] Start: 03-10-2023 End: 03-11-2023 ambulatory [facility] Facility:H1 Start: 01-03-2023 [facility] Start: 12-28-2022 End: 12-29-2022 ambulatory [facility] Facility:H1 Start: 12-27-2022 End: 12-27-2022 [facility] [employer] Other Start: 12-27-2022 Office outpatient ne w 30 [facility] Start: 12-01-2022 End: 12-02-[address] GARRY RAMOS . Facility:H1 Start: 11-26-2022 End: 11-26-[address] GARRY RAMOS . Facility:H1 Start: 11-25-2022 End: 11-26-[address] GARRY RAMOS . Facility:H1 Start: 09-23-[address] GARRY RAMOS . Facili ty:H1 Start: 09-12-2022 End: 09-12-[address] GARRY RAMOS . Facility:H1 Start: 08-05-2022 End: 08-08-2022 ambulatory CHRISTI MARYANN [facility] Start: 07-25-2022 End: 07-26-2022 [facility] Start: 07-25-2022 End: 07-26-2022 Emergency department patient visit Bishnu Horner MD Work Phone: [facility] 3C Observation Comment on above: Nephrostomy complica tion (HCC) (Primary Dx) Start: 07-18-2022 End: 07-22-2022 [facility] Start: 07-18-2022 End: 07-22-2022 Evaluation and management of inpatient Aime Bird MD [facility] 5C Stepdown Comment on above: Kidney stone (Primar y Dx); Acute pyelonephritis; Left renal atrophy; Staghorn renal calculus; OMAR (acute kidney injury) ([facility]) Start: 07-18-2022 End: 07-18-[address] GARRY RAMOS . Facility: Start: 04-15-2022 End: 04-16-[address] GARRY RAMOS . Facility: Start: 04-01-[address] GARRY RAMOS . Facili ty:H1 Start: 02-15-2019 End: 02-22-2019 ambulatory GARRY RAMOS Facility:[facility] Procedures Date Procedure Procedure Detail Performing Clinician [...] Start: 07-22-2022 End: 07-22-2022 Assay of lactate Previni Ferrari MD Work Phone: Start: 07-22-2022 BASIC METABOLIC PANE L W/ REFLEX TO MG FOR LOW K Livia Cantrell MD Work Phone: Start: 07-22-2022 Assay of lactate Prefabrizio Ferrari MD Work Phone: Start: 07-21-2022 Glucose [...] dip stick/tabl et reagent auto microscopy Shahid Do MD Work Phone: Start: 07-20-2022 IMMUNOFIXATION SERUM PROFILE Shahid Do MD Work Phone: Start: 07-20-2022 End: 07-20-2022 Protein electrophoretic fractj&quantj serum Shahid Do MD Work Phone: Start: 07-20-2022 BASIC METABOLIC [...] Treatment Date Care Activity Detail Author Start: 08-19-2026 DTaP,Tdap and Td Vaccines (2 - Td or Tdap) DTaP,Tdap and Td Vaccines (2 - Td or Tdap) [facility] Start: 08-06-2025 Adult BMI Screening Adult BMI Screen ing [facility] Start: 08-03-2025 Tobacco Screening Tobacco Screening [facility] Start: 09-18-2024 End: 09-18-2024 Patient encounter procedure 09/18/2024 3:00 PM EST Office Visit [facility] Neurology [address] [place] [id number] Luis Pratt MD [address] [facility] [address] [facility] [address] [place] [id number] [facility] Start: 07-07-2024 COVID-19 Vaccine ( season) COVID-19 Vaccine ( season) [facility] Start: 07-07-2024 Influenza vaccination Influenza Vacc ine [facility] Start: 08-23-2022 End: 08-23-2022 Patient encounter procedure 08/23/2022 Office Visit Infectious Diseases Urban Noriega MD [address] [place], [place] [id number] [facility]. Start: 08-03-2022 End: 07-20-2023 NM KIDNEY W FLOW AND FUNCTION W PHARMACOLOGICAL INTERVENTION NM KIDNEY W FLOW AND FUNCTION W PHARMACOLOGICAL INTERVENTION Imaging Routine Left renal atrophy Staghorn renal calculus Expected: 08/03/2022, Expires: 07/20/2023 [employer] Phone: Comment on above: Expected: 08/03/2022 , Expires: 07/20/2023 Start: 07-29-2022 End: 07-22-2023 Basic metabolic 2000 panel - Serum or Plasma Basic Metabolic Panel Lab Routine OMAR (acute kidney injury) (HCC) Expected: 07/29/2022, Expires: 07/22/2023 [employer] Phone: Comment on above: Expected: 07/29/2022 , Expires: 07/22/2023 Start: 07-07-2022 Influenza vaccination Flu vaccine (# 1) [employer] Start: 2021 Administration of varicella zoster vaccine Zoster (Shingles) Vaccine (1 of 2) [facility] Start: 2021 Screening for malign ant neoplasm of breast Breast cancer screen [employer] Start: 2021 Shingles vaccine (1 of 2) Shingles vaccine (1 of 2) [employer] [facility] Start: 2016 Screening for malign ant neoplasm of colon [employer] Start: 2001 Screening for malign ant neoplasm of cervix [employer] [facility] Start: 1992 Screening for malign ant neoplasm of cervix Pap smear [facility] Start: 1990 DTaP/Tdap/Td vaccine (1 - Tdap) DTaP/Tdap/Td vaccine (1 - Tdap) [employer] Start: 1990 Hepatitis B vaccine (1 of 3 - Risk 3-dose series) Hepatitis B vaccine (1 of 3 - Risk 3-dose series) [facility] Start: 1989 Adult BMI Follow Up Plan Adult BMI F ollow Up Plan [facility] Start: 1989 Diabetic foot examination Diabetic Foot Exam [facility] Start: 1989 Diabetic retinal exam Diabetic retin al exam [facility] [employer] Start: 1989 Urine screening for protein Diabetic microalbuminuria test [facility] [employer] Start: 1986 HIV screening HIV screen [facility] [employer] Start: 1983 Depression Monitoring Depression Mon kristan [facility] Start: 1983 Depression Screening Depression Scre ening [facility] Start: 1981 Diabetic foot examination Diabetic foot exam [facility] [employer] Start: 1981 Hemoglobin A1c measurement A1C test (Diabetic or Prediabetic) [facility] Start: 1981 Lipid panel Lipids [facility] [employer] Start: 1977 Pneumococcal 0-64 ye ars Vaccine (1 - PCV) Pneumococcal 0-64 years Vaccine (1 - PCV) [facility] [employer] Start: 03-26-1972 COVID-19 Vaccine (#1) COVID-19 Vacci ne (#1) [facility] [employer] Start: 1971 Glaucoma screening [facility] Start: 1971 Urine screening for protein [facility]album[facility] End: 08-01-2022 Basic Metabolic Panel w/ Reflex to MG Basic Metabolic Panel w/ Reflex to MG Lab Routine Daily for 14 Occurrences starting 07/19/2022 until 08/01/2022, 3 completed [employer] Phone: Comment on above: Daily for 14 Occurre nces starting 07/19/2022 until 08/01/2022, 3 completed Culture, Blood 1 [employer] Phone: Culture, Blood 1 Culture, Blood 1 Microbiology STAT 07/20/2022 4:26 AM EDT [employer] Phone: Culture, Blood 1 [employer] Phone: Culture, Blood 2 Culture, Blood 2 Microbiology STAT 07/20/2022 4:26 AM EDT [employer] Phone: Glucose [Mass/volume ] in Serum or Plasma [employer] Phone: Comment on above: 4X Daily (AC & HS) u ntil discontinued starting 07/18/2022, 1 completed As Needed until disc ontinued starting 07/18/2022 Glucose [Mass/volume ] in Serum or Plasma POCT Glucose Point of Care Testing STAT As Needed until discontinued starting 07/26/2022 [employer] Phone: Comment on above: As Needed until disc ontinued starting 07/26/2022 Oxygen therapy [Mini mum Data Set] Initiate Oxygen Therapy Protocol Respiratory Care Routine As Needed until discontinued starting 07/18/2022 [employer] Phone: Comment on above: As Needed until disc ontinued starting 07/18/2022 Oxygen therapy [Mini mum Data Set] Initiate Oxygen Therapy Protocol Respiratory Care Routine Daily until discontinued starting 07/25/2022 [employer] Phone: Comment on above: Daily until disconti nued starting 07/25/2022 Immunizations Immunization Date Immunization Notes Care Provider [facility] 10-28-2021 influenza virus vaccine, unspecified formulation Karen Greenberglins MARKETING [facility]ANCE [facility] Work Phone: [employer] 08-19-2016 tetanus toxoid, reduced diphtheria toxoid, and acellular pertussis vaccine, adsorbed Aziz Bakhous Other [employer] Other Payers Date Payer Category Payer Private Health Insurance [facility] [id number] 2022-Present [phone] [address] [address] [place] [address] [id number] 1971 Unknown [id number] 2.16.840.1.006604.3.579. 2.647 1971 Unknown [id number] 2.16.840.1.844650.3.579. 2.173 1971 Unknown [id number] 2.16.840.1.476477.3.579. 2.175 1971 Unknown [id number] 2.16.840.1.119296.3.579. 2.175 1971 Unknown [id number] 2.16.840.1.473068.3.579. 2.593 1971 Unknown [id number] 2.16.840.1.300439.3.579. 2.593 1971 Unknown [id number] 2.16.840.1.960634.3.579. 2.593 1971 Unknown [id number] 2.16.840.1.356902.3.579. 2.593 1971 Unknown [id number] 2.16.840.1.965222.3.579. 2.593 1971 Unknown [id number] 2.16.840.1.126671.3.579. 2.593 1971 Unknown [id number] 2.16.840.1.168472.3.579. 2.593 1971 Unknown [id number] 2.16.840.1.992786.3.579. 2.593 1971 Unknown [id number] 2.16.840.1.112894.3.579. 2.593 1971 Unknown [id number] 2.16.840.1.527335.3.579. 2.593 1971 Unknown [id number] 2.16.840.1.536703.3.579. 2.593 1971 Unknown [id number] 2.16.840.1.389630.3.579. 2.1286 1959 Self-pay [id number] 1959 Unknown [id number] 1958 Unknown [id number] Self-pay Self Pay [id number] Unknown [id number] [id number] Social History Date Type Detail Facility [facility] smoked [facility] Start: 1970 Sex Assigned At Female [facility] Tobacco smoking stat [facility] Tobacco smoking consumption unknown [employer] Phone: Start: 1970 Sex Assigned At Not on file [employer] Phone: Start: 07-08-2022 End: 07-25-2022 Exposure to SARS-CoV-2 (event) Not sure [employer] Start: 12-17-2020 End: 08-04-2024 Sex Assigned At [employer] Start: 12-26-2021 Tobacco smoking status NHIS Never smoked tobacco [employer] Start: 12-26-2021 Tobacco use and exposure Smokeless tobacco non-user [employer] Start: 08-03-2024 Alcoholic beverage intake Ex-drinker (finding) [facility] Start: 12-17-2020 End: 08-04-2024 [address] [facility] [address] [facility] Has the [employer], [employer] threatened to shut off services in your home in past 12Mo No [employer] In the past 12 month s, has lack of transportation kept you from medical appointments or from getting medications? No [employer] Medical Equipment Procedure Code Equipment Code Equipment Origin al Text Equipment Identifier Dates USE TO ADMINISTE R INSULIN TWICE DAILY DIRECTED Start: 01-18-2022 Goals Date Patient Goal Desired Activity /State Personal health goal Comment on above: Formatting of this n ote might be different from the original. Evaluation of progress towards goal: awaiting test results, pt would like to go home today Clinical Notes 03-31-2021 to 09-02-2024 Note Date & Type Note Facility 09-02-2024 Note [facility] Cardiology Clinic Note Chief Complaint: New patient here to establish care. Ref from Dr. Ramos for abnormal echo performed at [facility] last month while inpatient. She was discharged on Eliquis and Plavix. She denies chest pain, but gets SOB w/ exertion. No bleeding issues. HPI: Asa Thompson is a 53 y.o. female With a history of moderate coronary artery disease, hypertension, dyslipidemia, and diabetes here to reestablish care Recently discharged from the hospital on 08/06/2024; Asa Thompson is a 53 y.o. female who presents with complaints severe headache that started 830 yesterday. Headache is on the left side in the front. Has been constant since yesterday. Nothing seems to make it better or worse. She has been taking Tylenol without relief. She is also experiencing intermittent double vision in the left eye. She denies any numbness tingling weakness. No dizziness or lightheadedness. No nausea or vomiting. No difficulty with her speech. She relates history of a stroke in the past but can not give me any details about this. Unsure when it occurred and if she has any residual deficit. She has a history of hypertension, hyperlipidemia, diabetes. Patient does not know what her sugar has been running because she is not checking it. She is a nonsmoker. Initial NIH score 3 for ataxia in both limbs as well as left leg drift. Patient has double vision and resolved in the emergency department. Stroke alert was called and stroke interventionalist reviewed scans. Recommended loading with aspirin and Plavix and then continue aspirin and Plavix daily. Also recommended permissive hypertensive for 24 hours. Cbc acceptable. Cmp with OMAR creatinine of 2.19. She has a pseudo hyponatremia with a sodium of 130. Glucose is 402. She is receiving some IV fluids and I ordered some insulin for initial troponin is normal. Patient be admitted for MRI to complete stroke workup. Patient had resolution of headache after oxycodone given. No other symptoms Hospital Medicine Discharge Summary Patient: Asa Thompson Date of : 1970 Room: 210 Encounter date: 08/06/24 Hospital Day: 4 DATE OF ADMISSION: 08/03/2024 DATE OF DISCHARGE:08/06/2024 DISCHARGE DIAGNOSES Principal Problem: Acute nonintractable headache, unspecified headache type Active Problems: Type 2 diabetes mellitus with neurologic complication, with long-term current use of insulin ([facility]) Essential hypertension Mixed hyperlipidemia Complicated headache syndromes Hyperglycemia OMAR (acute kidney injury) ([facility]) Vision changes Hypomagnesemia Cerebrovascular accident (CVA) due to embolism of precerebral artery ([facility]) Update 09/02/2024: She has had no further neurological issues. She denies chest pain. She has had no stress test or CAD catheterizations since 2009. She has chronic shortness of breath which is unchanged. She denies orthopnea, paroxysmal, dyspnea, or lower extremity edema. Cardiology ROS: Review of Systems Cardiovascular: Positive for dyspnea on exertion. Neurological: Positive for light-headedness. All other systems reviewed and are negative. Past Medical History She has a past medical history of Atrophy of left kidney, CVA (cerebral vascular accident) ([facility]) (2021), Diabetes mellitus ([facility]), and Kidney stone. Surgical History [...] Allergies Dilaudid [hydromorphone], Morphine, and Penicillins Medications Current Outpatient Medications: aspirin 81 mg EC tablet, Take 81 mg by mouth in the morning., Disp: , Rfl: atorvastatin (Lipitor) 20 mg tablet, atorvastatin 20 mg tablet, Disp: , Rfl: DULoxetine (Cymbalta) [address] capsule, Take 60 mg by mouth in the morning. Do not crush or chew., Disp: , Rfl: furosemide (Lasix) 20 mg tablet, Take by mouth., Disp: , Rfl: gabapentin (Neurontin) 600 mg tablet, Take 600 mg by mouth in the morning, at noon, and at bedtime., Disp: , Rfl: hydrALAZINE (Apresoline) 25 mg tablet, Take by mouth., Disp: , Rfl: hydroCHLOROthiazide (HYDRODiuril) 25 mg tablet, Take 25 mg by mouth in the morning., Disp: , Rfl: insulin NPH and regular human (HumuLIN 70/30 U-100 Insulin) 100 unit/mL (70-30) injection, 70 units in AM 30 units pm as needed, Disp: , Rfl: levothyroxine (Synthroid, Levoxyl) 175 mcg tablet, levothyroxine 175 mcg tablet, Disp: , Rfl: losartan (Cozaar) 100 mg tablet, Take 100 mg by mouth in the morning., Disp: , Rfl: magnesium oxide (Mag-Ox) 200 mg split tablet, Take 400 mg by mouth., Disp: , Rfl: met (more content not included)... [facility] 12-27-2022 Evaluation note Encounter Date Diagnosis Assessment [...] pyonephritis. Patient follows with urology clinic at [facility] Dec, Solitary kidney, acquired (ICD-10 - Z90.5) [...] home and to follow a low-salt diet [employer] Other 09-20-2022 NotePROCEDURE: MARTINE LILLY NEPHROSTMY CATH PROC 07/26/2022 [...] detailed explanation of the procedure including risks. Campo protocol was observed. Sterile gowns, masks, hats and gloves utilized for maximal sterile barrier. The patient was placed in the prone position on the fluoroscopy table, and the existing left nephroureteral stent and flank were prepped and draped in sterile manner. The stent tubing was noted to be broken with the lumen exposed near the level of the skin. A tomato pulper operator image demonstrated the distal loop approximating [...] wire. Under fluoroscopic guidance, a new 8 Italian x 22 cm nephroureteral stent was advanced over the wire; the distal loop formed in the bladder, but the proximal loop did not form in the renal pelvis. Therefore, this catheter was removed over wire, and a new 8 Italian x 24 cm nephroureteral stent was advanced [...] Signed by: Bishnu Alan MD 07/26/22 Final [facility]-20[facility] NotePROCEDURE: IR CHG NEPHROSTMY CATH PROC [...] detailed explanation of the procedure including risks. Campo protocol was observed. Sterile gowns, masks, hats and gloves utilized for maximal sterile barrier. The patient was placed in the prone position on the fluoroscopy table, and the existing left nephroureteral stent and flank were prepped and draped in sterile manner. The stent tubing was noted to be broken with the lumen exposed near the level of the skin. A tomato pulper operator image demonstrated the distal loop approximating [...] wire. Under fluoroscopic guidance, a new 8 Italian x 22 cm nephroureteral stent was advanced over the wire; the distal loop formed in the bladder, but the proximal loop did not form in the renal pelvis. Therefore, this catheter was removed over wire, and a new 8 Italian x 24 cm nephroureteral stent was advanced over the wire. The distal loop formed in the expected position of the bladder, and the proximal loop partially formed in the renal pelvis. Contrast injection confirmed appropriate positioning. The stent was then attached to the skin with a 2-0 monofilament suture. The patient tolerated the procedure well. COMPLICATIONS: None immediately apparent MHPN RIS [id number] History of Present illness Narrative* Paloma Arceo MD - 07/26/2022 1:42 PM EDT [facility] CDU / OBSERVATION ENCOUNTER ATTENDING NOTE [...] going to IR this morning for replacement. [place] observation unit for nephrostomy tube placement. Patient reassessed on arrival to the floor. Paloma Arceo MD Attending Emergency Physician * Song Sharif - 07/26/2022 12:50 AM EDT [facility] [place] [facility] [place] Shift date: 07.25.2022 Shift day: Monday Shift # 2 Room # 10/17 Name: Asa Thompson Latter Day: unknown Place of jehovah's witness: unknown Referral: Routine Visit Admit Date & Time: 07/25/2022 5:43 PM Assessment: Asa Thompson is a 51 y.o. female in the hospital with pain. Upon entering the room medical writer observes patient in pain and states that she is looking for a nurse to provide pain management. Patient appears to be coping otherwise. Intervention: Senior Computer Specialist introduced self and title as group captain Senior Computer Specialist offered space for the patient to express feelings, needs, and concerns and provided a ministry presence. Outcome: Patient requests nursing assistance for pain. Inspector Timers attempted to follow up with nursing staff. Plan: Chaplains will remain available to offer spiritual and emotional support as needed. . Spiritual Care Department [facility] [phone] 07/25/22 [id number] Encounter Summary Service Provided For: Patient Referral/Consult From: Rounding Support System Family members Last Encounter 07/25/22 Complexity of Encounter Moderate Begin Time 2310 End Time 2325 Total Time Calculated 15 min Encounter Type Initial Screen/Assessment Assessment/Intervention/Outcome Assessment Compromised coping Intervention Active listening;Discussed illness injury and it s impact;Explored/Affirmed feelings, thoughts, concerns Outcome Expressed feelings, needs, and concerns;Venting emotion documented in this encounterBON [employer] Phone: 1(202) 546-993309-16-2022 History of Present illness Narrative* Christine Campa RN - 07/22/2022 4:32 PM EDT Senior Computer Specialist went over all discharge paperwork with patient and Shaq bedside. Patient denies any further questions or concerns at this time. Patient also has a BMP script to get done within 1 week and have results sent to PCP. Senior Computer Specialist also called [facility] pharmacy in [place] and verified E-prescriptions were sent. Patient also has all personal belongings on discharge as well * Emelia Kumar - 07/22/2022 4:26 PM EDT CLINICAL PHARMACY NOTE: MEDS TO BEDS Total # of Prescriptions Filled: 3 The following medications were delivered to the patient: Furosemide 20mg Ciprofloxacin 500mg Hydralazine 25mg Additional Documentation: delivered to patient in room 541 07/22 at 3:33pm. Co- pay $16.50 cloLob. * Christine Campa RN - 07/22/2022 3:47 PM EDT Senior Computer Specialist was unable to set up follow up appointment for Dr. Chino Dempsey (urologist) on discharge d/tthe office being closed. Senior Computer Specialist explained to the patient that she will [...] doesn't need anything from therapy. * Shahid Do MD - 07/22/2022 11:19 AM EDT Renal [...] Date/Time NITRU NEGATIVE 07/20/2022 03:05 PM COLORU [place] 07/20/2022 03:05 PM PHUR 5.0 07/20/2022 03:05 [...] as outpatient as well, patient lives near [facility] and will likely ask her PCP to get nephrological referral otherwise if she wants she can follow-up in the clinic with us as well. She should get BMP results done in 1 week and results faxed to PCP. Nutrition Please ensure that patient is on a renal diet/TF. Avoid nephrotoxic drugs/contrast exposure. Shahid Do MD [facility] This note is created with the assistance of a speech-recognition program. While intending to generate a document that actually reflects the content of the visit, no guarantees can be provided that every mistake has been identified and corrected by editing. * Urban Noriega MD - 07/22/2022 10:27 AM EDT Images from the original note were not included. [facility] Note Today's Date and Time: [...] urine cultures: No growth Urine culture from [place]: E coli, multi-sensitive Patient will need treatment [...] lithotripsy in the future. Infection Control Recommendations Campo Precautions Antimicrobial Stewardship Recommendations Simplification of therapy [...] is a 51-year-old female who presents to [facility] with a chief complaint of left flank pain that started at 4 AM on 07/18/2022. Patient states that the pain is intense and is radiating towards her left groin. Patient denies any fever, burning urination, urgency frequency, vomiting, loose stool, any shortness of breath or chest discomfort. Patient went to [place] and had a CT imaging done. 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 Urinalysis positive for leukocytes and nitrates and blood. White blood cell count 13.7 and creatinine of 1.45. Patient needed urology evaluation and nephrostomy tube placement . She was transferred to [facility]. Urology was consulted. Urology plan for IR [...] and urine cultures: No growth at [facility] Urine culture at [place] with E coli Patient reports tolerating Cipro [...] Cultures: Urine: 07-18-22: E coli- Multi-sensitive at [place] 07/18/2022: No growth 07/19/2022: Urinalysis: Turbid, glucose [...] the procedure including risks, benefits, and alternatives. Campo protocol was followed. The patient's flank was [...] into the urinary bladder using a 4 Italian Kumpe the catheter; the Glidewire was exchanged [...] puncture of the lower pole calyx, 4 Italian Kumpe the catheter manipulation and glidewire extension into the urinary bladder. Subsequent images show the nephroureteral stent in satisfactory position. Impression Successful percutaneous left nephroureteral stent placement via lower pole, past a large staghorn calculus, with distal pigtail tip position in the urinary bladder, as above. Findings were discussed with KASH CLAY at 4:09 pm on 07/19/2022. Medical Decision Wuryzf-Kxuayple-Bdryv: Medical Decision Making-Other: Note: Labs, medications, radiologic studies were reviewed with personal review of films Large amounts of data were reviewed Discussed with nursing Staff, personal financial planner Infection Control and Prevention measures reviewed All prior entries were reviewed Administer medications as ordered Prognosis: Good Discharge planning reviewed Follow up as outpatient. Thank you for allowing us to participate in the care of this patient. Please call with questions. Urban Noriega MD * Keo Guevara MD - 07/22/2022 7:45 AM EDT Physician Progress Note PATIENT: ASA THOMPSON CSN #: [id number] : 1970 ADMIT DATE: 07/18/2022 3:19 PM [...] Thank you, Judith LUNA,RN, CDI email - [email or web address] cell- [phone] office hours M--[id number]-3P Options provided: -- Sepsis, present on admission [...] original note were not included. [facility] Internal Medicine Teaching Residency Program Inpatient Daily Progress Note Patient: Asa Thompson Date of : 1970 Acct: [id number] Room: 0541/0541-01 Admit date: 07/18/2022 Today's date: [...] positive for E. Coli- multi sensitive at [place] Lactic acid-1.5-2.3 Urology on board-okay to be [...] breath or chest discomfort. 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 Patient needed urology evaluation and nephrostomy tube placement so transferred to the [facility]. Urology consulted plan for IR tomorrow. patient [...] Keo Guevara MD Internal Medicine Resident, PGY-1 [facility]; [place], [place] 07/22/2022, 7:44 AM Associated attestation - Livia Cantrell MD - 07/22/2022 2:02 PM EDT Attending Physician Statement I have discussed the case of Asa Thompson, including pertinent history and exam findings with the resident/fellow/medical student/HEAD KILN OPERATOR/PA. I have seen and examined the patient and the trevizo elementsof the encounter have been performed by me. I agree with the assessment, plan and orders as documented by the resident/fellow/medical student/HEAD KILN OPERATOR/PA With changes made to the note as [...] been improving Microbiologic data remains negative at [facility] activity Percutaneous nephrostomy tube is draining Discharge [...] past 96 hrs (Last 3 readings): Weight 09/12/22 2054 255 lb 11.7 oz (116 kg) [...] Date/Time NITRU NEGATIVE 07/20/2022 03:05 PM COLORU [place] 07/20/2022 03:05 PM PHUR 5.0 07/20/2022 03:05 [...] 07/21/2022 1:36 PM EDT Physical Therapy Facility/Department: [address] [place] Physical Therapy Initial Assessment Name: [...] pt reports her is available to provide / support. 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 Mode of Transportation: [facility] Occupation: Unemployed Leisure & Hobbies: Everything -staying [...] (degrees) Right Hand AROM: WFL AM-PAC Score AM-[facility] Inpatient Daily Activity Raw Score: 24 (07/21/221207) AM-PAC Inpatient ADL T-Scale Score : 57.54 (07/21/221207) ADL Inpatient CMS 0-100% Score: 0 (07/21/221207) ADL Inpatient CMS G-Code Modifier : CH (07/21/221207) Therapy Time Individual Concurrent Group Co-treatment Time In 928 Time Out 957 Minutes 29 Timed Code Treatment Minutes: 9 Minutes Luisa Oquendo OTR/L * Urban Noriega MD - 07/21/2022 11:44 AM EDT Images from the original note were not included. [facility] - Progress Note Today's Date and Time: [...] up to a week. Infection Control Recommendations Campo Precautions Antimicrobial Stewardship Recommendations Simplification of therapy [...] is a 51-year-old female who presents to [facility] with a chief complaint of left flank pain that started at 4 AM on 07/18/2022. Patient states that the pain is intense and is radiating towards her left groin. Patient denies any fever, burning urination, urgency frequency, vomiting, loose stool, any shortness of breath or chest discomfort. Patient went to [place] and had a CT imaging done. 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 Urinalysis positive for leukocytes and nitrates and blood. White blood cell count 13.7 and creatinine of 1.45. Patient needed urology evaluation and nephrostomy tube placement . She was transferred to [facility]. Urology was consulted. Urology plan for IR [...] proteins. Blood: 07/18/2022: No growth x 2 -: No growth Sputum : Wound: MRSA Nares: [...] NEPHROSTOMY PERCUTANEOUS LEFT 07/19/2022 Noman Mullen MD [facility] Medications: insulin lispro 0-16 Units SubCUTAneous TID insulin [...] the procedure including risks, benefits, and alternatives. Campo protocol was followed. The patient's flank was [...] into the urinary bladder using a 4 Italian Kumpe the catheter; the Glidewire was exchanged [...] puncture of the lower pole calyx, 4 Italian Kumpe the catheter manipulation and glidewire extension into the urinary bladder. Subsequent images show the nephroureteral stent in satisfactory position. Impression Successful percutaneous left nephroureteral stent placement via lower pole, past a large staghorn calculus, with distal pigtail tip position in the urinary bladder, as above. Findings were discussed with KASH CLAY at 4:09 pm on 07/19/2022. Medical Decision Guqrwp-Bohcxomf-Jussn: Medical Decision Making-Other: Note: Labs, medications, radiologic studies were reviewed with personal review of films Large amounts of data were reviewed Discussed with nursing Staff, personal financial planner Infection Control and Prevention measures reviewed [...] original note were not included. [facility] Internal Medicine Teaching Residency Program Inpatient Daily Progress Note Patient: Asa Thompson Date of : 1970 Acct: [id number] Room: 0541/0541-01 Admit date: 07/18/2022 Today's date: [...] breath or chest discomfort. 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 Patient needed urology evaluation and nephrostomy tube placement so transferred to the [facility]. Urology consulted plan for IR tomorrow. patient [...] time PT/OT/SW-consulted we will follow-up Discharge Planning: water quality manager consulted Phillip Garrett MD Internal Medicine Resident, PGY-1 [facility]; [place], [place] 07/21/2022, 8:22 AM Associated attestation - Livia Cantrell MD - 07/21/2022 8:43 PM EDT Attending Physician Statement I have discussed the case of Asa Thompson, including pertinent history and exam findings with the resident/fellow/medical student/HEAD KILN OPERATOR/PA. I have seen and examined the patient and the trevizo elementsof the encounter have been performed by me. I agree with the assessment, plan and orders as documented by the resident/fellow/medical student/HEAD KILN OPERATOR/PA With changes made to the note as [...] 11:26 PM EDT [place]IT[place] [facility] [place] Shift date: 07/20/22 Shift day: Monday Shift # 2 Room # 0541/0541-01 Name: Asa Goyal Lucriley Latter Day: Place of jehovah's witness: Referral: Routine Visit Admit Date & Time: 07/18/2022 3:19 PM Assessment: Asa Thompson is a 51 y.o. female Intervention: Senior Computer Specialist introduced self and title as group captain. Patient did not appear to mind group captain presence. Senior Computer Specialist offered space for patient to express feelings, needs, and concerns and provided a ministry presence. Patient appeared to be resting and coping. Outcome: While gonzález/spirituality were not discussed, patient appeared receptive to group captain presence.3 Plan: Chaplains will remain available to offer spiritual and emotional support as needed. . Spiritual Care Department [facility] [phone] * TERRY BERGMAN - 07/20/2022 9:30 PM EDT Orders received for patients high BP * TERRY BERGMAN - 07/20/2022 9:08 PM EDT Notified abalone sheller resident for internal medicine of patients current [...] original note were not included. [facility] Internal Medicine Teaching Residency Program Inpatient Daily Progress Note Patient: Asa Thompson Date of : 1970 Acct: [id number] Room: Admit date: 07/18/2022 Today's date: 07/20/22 Number of days in the hospital: 2 SUBJECTIVE Admitting Diagnosis: Calculous pyelonephritis CC: Left flank pain Pt examined at bedside. Chart & results reviewed. No acute event overnight Patient remained afebrile hemodynamically stable Pain better controlled with pain meds IR guided left percutaneous nephrostomy tube placement yesterday evening-output 500 so far WBC-12.3-7.1-10.2 Creatinine 1.65-1.71-2.11 [id number]-corrected sodium 133 Lactic acid-3.8 Glucose-416 ROS: Constitutional: [...] breath or chest discomfort. 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 Patient needed urology evaluation and nephrostomy tube placement so transferred to the [facility]. Urology consulted plan for IR tomorrow. patient [...] Oral BID Continuous Infusions: sodium chloride Stopped (07/19/222327) dextrose sodium chloride 100 mL/hr at 07/20/22 [...] PRN Diagnostic Labs: CBC: Recent Labs 07/19/22 0607/20/22 0148 07/20/22 0426 WBC 7.1 12.3* 10.2 RBC 3.50* 3.62* 3.74* HGB 10.4* 10.6* 11.0* HCT 30.2* 31.3* 32.4* MCV 86.3 86.5 86.6 RDW 13.6 13.5 13.6 PLT 410 280 252 BMP: Recent Labs 07/19/22 0607/20/22 0148 07/20/22 0426 NA 131* 128* 128* K 4.0 5.2 5.0 CL 98 95* 95* CO2 19* 17* 18* BUN 38* 37* 38* CREATININE 1.71* 2.35* 2.11* BNP: No results for input(s): BNP in the last 72 hours. PT/INR: Recent Labs 07/18/22 16207/19/22 075 PROTIME 10.0 9.8 INR 0.9 0.9 APTT: [...] time PT/OT/SW-consulted we will follow-up Discharge Planning: water quality manager consulted Keo Guevara MD Internal Medicine Resident, PGY-1 [facility]; [place], [place] 07/20/2022, 8:06 AM Associated attestation - Livia Cantrell MD - 07/20/2022 7:52 PM EDT Attending Physician Statement I have discussed the case of Asa Thompson, including pertinent history and exam findings with the resident/fellow/medical student/HEAD KILN OPERATOR/PA. I have seen and examined the patient and the trevizo elementsof the encounter have been performed by me. I agree with the assessment, plan and orders as documented by the resident/fellow/medical student/HEAD KILN OPERATOR/PA With changes made to the note as [...] cysto, URS, HLL 7 years prior in [place], [place] with Dr. Harrison Recurrent UTIs, 4 [...] score is now 5.12. Per sepsis protocol, medical writer ordered lactic and blood cultures. Provider notified. * Alexsandra Mckinley RN - 07/20/2022 3:13 AM EDT Senior Computer Specialist notified provider of infection concerns. Patient's WBC [...] original note were not included. Occupational Therapy [facility] Occupational Therapy Not Seen Note DATE: 07/19/2022 NAME: Asa Thompson : 1970 Patient not seen this date for Occupational Therapy due to: Other: Pt currently IND per RN, completed full shower this AM IND. Check back following IR procedure for nephrostomy tube placement. Next Scheduled Treatment: 07/20/2022 * Christi Chance, DO - 07/19/2022 7:12 AM EDT Images from the original note were not included. Ke Bonilla, Charlie Waters Mostafa, Priya Brambila Jr Urology Progress Note Subjective: [...] cysto, URS, HLL 7 years prior in [place], [place] with Dr. Harrison Recurrent UTIs, 4 [...] original note were not included. [facility] Internal Medicine Teaching Residency Program Inpatient Daily Progress Note Patient: Asa Thompson Date of : 1970 Acct: [id number] Room: [facility] [place] [address] Admit date: 07/18/2022 Today's date: 07/19/22 Number [...] breath or chest discomfort. 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 Patient needed urology evaluation and nephrostomy tube placement so transferred to the [facility]. Urology consulted plan for IR tomorrow. patient [...] time PT/OT/SW-consulted we will follow-up Discharge Planning: water quality manager consulted Keo Guevara MD Internal Medicine Resident, PGY-1 [facility]; [place], [place] 07/19/2022, 6:40 AM Associated attestation - Livia Cantrell MD - 07/19/2022 7:45 PM EDT Attending Physician Statement I have discussed the case of Asa Thompson, including pertinent history and exam findings with the resident/fellow/medical student/HEAD KILN OPERATOR/PA. I have seen and examined the patient and the trevizo elementsof the encounter have been performed by me. I agree with the assessment, plan and orders as documented by the resident/fellow/medical student/HEAD KILN OPERATOR/PA With changes made to the note as [...] [N10] Calculous pyelonephritis [N20.0]. See H&P of admitting/international logistics coordinator resident for more details. Transferred from [facility] Patient came in due to left [...] Brooklynn Ferrari MD Department of Internal Medicine [facility] [place] 07/19/2022, 12:39 AM documented in this encounterB[facility] [place] Phone: 1([phone] 312-904409-16-2022 Hospital Discharge instructions* Discharge Instructions* Keo Guevara MD - 07/22/2022 12:18 PM EDT You were admitted for staghorn renal calculi and your urine culture from [place] was positive for Ecoli. Please take ciprofloxacin [...] Extended Emergency Contact Information Primary Emergency Contact: marlenyharryarian Relation: Child Cadd Drafter needed? No Past Surgical History: Past Surgical History: Procedure Laterality Date IR NEPHROSTOMY PERCUTANEOUS LEFT 07/19/2022 IR NEPHROSTOMY PERCUTANEOUS LEFT 07/19/2022 Noman Mullen MD [facility] Immunization History: There is no immunization history on file for this patient. Active Problems: Patient Active Problem List Diagnosis Code Calculous pyelonephritis N20.0 OMAR (acute kidney injury) ([facility]) N17.9 Type 2 diabetes mellitus, with long-term current use of insulin ([facility]) E11.9, Z79.4 Leukocytosis D72.829 Hypothyroidism E03.9 Depression F32.A Hypertension I10 History of coronary artery disease Z86.79 Acute pyelonephritis N10 Left renal atrophy N26.1 Kidney stone N20.0 Sepsis with acute renal failure without septic shock ([facility]) A41.9, R65.20, N17.9 History of [...] (116 kg) Mental Status: {IP PT MENTAL STATUS:94014} IV Access: { TIMO IV ACCESS:679036138} Nursing Mobility/ADLs: Walking {CHP DME ADLs:996107090} Transfer {CHP DME ADLs:705169835} Bathing {CHP DME ADLs:046265699} Dressing {CHP DME ADLs:807211679} Toileting {CHP DME ADLs:820660490} Feeding {CHP DME ADLs:794163420} Biotech Production Specialist {CHP DME ADLs:628363607} Med Delivery { ITMO MED Delivery:882421531} Wound Care Documentation and Therapy: Elimination: Continence: Bowel: {YES / NO:} Bladder: {YES / NO:} Urinary Catheter: {Urinary Catheter:891529650} Colostomy/Ileostomy/Ileal Conduit: {YES / NO:} Date of Last BM: Intake/Output Summary (Last 24 hours) at 07/22/2022 1349 Last data filed at 07/22/2022 0813 Gross per 24 hour Intake 1594.2 ml Output 3875 ml Net -2280.8 ml I/O last 3 completed shifts: In: 4236.1 [P.O.:580; I.V.:3350.1; IV Piggyback:306] Out: 6520 [Urine:6520] Safety Concerns: { TIMO Safety Concerns:983492451} Impairments/Disabilities: { TIMO Impairments/Disabilities:963033209} Nutrition Therapy: Current Nutrition Therapy: { TIMO Diet List:079626273} Routes of Feeding: {[facility] Other Feedings:740759706} Liquids: {[facility] liquid thickness:14388} Daily Fluid Restriction: {[facility] DME Yes amt example:692610860} Last Modified Barium Swallow with Video (Video Swallowing Test): {Done Not Done Date:} Treatments at the Time of Hospital Discharge: Respiratory Treatments: Oxygen Therapy: {Therapy; copd oxygen:80476} Ventilator: { CC Vent List:028117504} Rehab Therapies: {THERAPEUTIC INTERVENTION:6574462875} Weight Bearing Status/Restrictions: {[facility] Weight Bearin} Other Medical Equipment (for information only, NOT a DME order): {EQUIPMENT:001482082} Other Treatments: Patient's personal belongings (please select all that are sent with patient): {[facility] DME Belongings:278527886} RN SIGNATURE: {Esignature:602762518} CASE MANAGEMENT/SOCIAL WORK SECTION Inpatient Status Date: Readmission Risk Assessment Score: Readmission Risk Risk of Unplanned Readmission: 19 Discharging to Facility/ Agency Name: Address: Phone: Fax: Dialysis Facility (if applicable) Name: Address: Dialysis Schedule: Phone: Fax: Tripoler/Insurance Verify Rep signature: {Esignature:568570639} PHYSICIAN SECTION Prognosis: {Prognosis:9132088453} Condition at Discharge: { Patient Condition:502404456} Rehab Potential (if transferring to Rehab): {Prognosis:0141662198} Recommended Labs or Other Treatments After Discharge: Physician Certification: I certify the above information and transfer of Asa Thompson is necessary for the continuing treatment of the diagnosis listed and that she requires {Admit to Appropriate Level of Care:37333} for {GREATER/LESS:195658214} 30 days. Update Admission H&P: {CHP DME Changes in HandP:985903880} PHYSICIAN SIGNATURE: {Esignature:520245935} documented in this encounterBON [facility] [employer] Work Phone: 1(902) 185-735109-13-2022 NotePROCEDURE: PERCUTANEOUS ANTEGRADE PYELOGRAM LEFT PERCUTANEOUS NEPHROURETERAL STENT PLACEMENT ULTRASOUND AND FLUOROSCOPY GUIDANCE MODERATE CONSCIOUS SEDATION 07/19/2022 HISTORY: ORDERING SYSTEM PROVIDED HISTORY[facility] TECHNOLOGIST PROVIDED HISTORY: shiraorn Is the patient ?->No SEDATION: Versed 0.5 [...] the procedure including risks, benefits, and alternatives. Campo protocol was followed. The patient's flank was [...] into the urinary bladder using a 4 Italian Kumpe the catheter; the Glidewire was exchanged [...] puncture of the lower pole calyx, 4 Italian Kumpe the catheter manipulation and glidewire extension [...] Signed by: Noman Mullen MD 07/19/22 Final resultMerAnaheim [facility]09-13-2022 NotePROCEDURE: PERCUTANEOUS ANTEGRADE PYELOGRAM LEFT PERCUTANEOUS [...] the procedure including risks, benefits, and alternatives. Campo protocol was followed. The patient's flank was [...] into the urinary bladder using a 4 Italian Kumpe the catheter; the Glidewire was exchanged [...] puncture of the lower pole calyx, 4 Italian Kumpe the catheter manipulation and glidewire extension into the urinary bladder. Subsequent images show the nephroureteral stent in satisfactory position. [facility] RIS [id number] NoteHNO ID: [id number] Author: Liliana Avila, PhD Service: ? Author Type: Physician Type: Progress Notes Filed: 03/11/2022 3:32 PM Note Text: [facility] Progress Note 03/11/2022 Billing code: [id number]/[place] 3:10PM - I called the patient to [...] her evaluation/medical records. Will send her a Fourteen IP message with instructions. Liliana Avila, PhD Clinical Health PsychologistSt. Mary'[facility]01-20-2022 NoteHNO ID: [id number] Author: Jeannine Tamez, PhD Service: ? Author Type: Psychologist Type: Progress Notes Filed: 11/25/2021 8:38 AM Note Text: [facility] Patient no-showed appointment despite phone call and HIPAA compliant VM. Patient given instructions on rescheduling. Jeannine Tamez, PhD [place]ologistAlyssa Ville [address]-03-2021 NoteHNO ID: [id number] Author: Ghazal Doyle RD Service: ? Author [...] meal plan and stated understanding. Ghazal Doyle RDSt. Mary'[facility]08-31-2021 NoteHNO ID: [id number] Author: Ghazal Doyle RD Service: ? Author Type: Registered Dietitian Type: Progress Notes Filed: 07/06/2021 11:52 AM Note Text: Telephone call placed to patient at 11:49 AM at [phone]. Received forwarded My Chart message from Abraham Pacheco RN regarding hypoglycemia on liquid diet phase. No answer . Left message with contact telephone number [phone] and instructions to communicate with this provider via Fourteen IP when able. Ghazal Doyle RDSt. Mary'S [facility]08-16-2021 NoteHNO ID: [id number] Author: Quincy Rodriguez MD Service: ? Author [...] with long-term current use of insulin ([facility]) Preoperative cardiovascular examination Resolved Hospital Problems No [...] AND Bariatric Surgery Fellow Bariatric AND Metabolic [facility] STAFF NOTE I have seen [...] counseling and educating the patient/family/caregiver. Quincy Rodriguez, [facility]06-04-2021 NoteHNO ID: [id number] Author: Jeannine Tamez, PhD Service: ? Author Type: Psychologist Type: Progress Notes Filed: 04/09/2021 2:44 PM Note Text: [facility] Receipt of Outside Records Patient: Asa Thompson Date: 04/09/2021 Received records from patient's physician, Garry Ramos MD of [employer] [facility] (Address: [address] [place] [address] [place] [address]; ; ). Asa is off of all psychiatric meds and is stable for gastric bypass surgery. These records have been sent to scanning. Plan: *All requirements have been met Jeannine Tamez, PhD PsychologistSt. [facility]2021 NoteHNO ID: [id number] Author: Ghazal Doyle RD Service: ? Author Type: Registered Dietitian Type: Progress Notes Filed: 03/31/2021 9:29 AM Note Text: [facility] Nutrition Therapy: Virtual Consult ? Re-assessment This visit was performed virtually due to the COVID-19 epidemic as an effort to protect patients and minimize exposure. Consent from patient received to conduct visit virtually. This Team Access Model visit is a virtual encounter. It required patient-provider interaction for the medical decision making as documented below. This visit completed via [employer] as Zoom did not connect PROGRESS: [...] - met 6. Start researching post-op vitamins: [employer], [employer], or [employer]-specific websites- - met Pre-op goal weight:?238 lbs [...] disease) 10/06/2010 - DM (diabetes mellitus) ([facility]) - Hyperlipidemia - Hypothyroidism - [...] lbs# Most recent height and weight per EPIC Height: Last 1 Encounter Ht Readings: Date: [...] [employer] (more content not included)... [facility] Diagnosis Calculous pyelonephritis- Primary Kidney stone [...] of non-steroidal anti-inflammatories documented in this encounter [facility] [employer] Phone: evaluation note* Diagnosis Nephrostomy tube displaced (HCC)- Primary Urinary complications Nephrostomy complication (HCC) documented in this encounter [facility] [employer] Phone: History general Narrative - Reported* Type Description Date Medical History Hypercholesterolemia Medical History DM Medical History Hypothyroid Medical History diabetic neuropathy Surgical History ALIZA BSO 2000 Surgical History Heart catherization 2010 Surgical History kidney stone Surgical History left kidney removed 10/26/2022 Hospitalization History See past surgical histor y Hospitalization History Heart Event 2009 [facility] [facility] Other Hospital Discharge instructions* Attachments The following attachments cannot be sent through Care Everywhere. * Nephrostomy Tube Care (Amharic) documented in this encounterBON [employer] Phone: InstructionsNot on filedocumented in this encounter [facility] Assessments No Assessments Information Available Summary Purpose [...] Code 07/18/2022 6:14 PM 07/22/2022 6:51 PM Date Activated Date Inactivated Comments 08/03/2024 6:27 PM 08/06/2024 6:40 PM Date Activated Date Inactivated Comments 12/26/2021 1:05 PM 12/28/2021 2:59 PM Reason for Referral Specialty Diagnoses / Procedures Referred By Serina t Referred To Contact Radiology Diagnoses Left renal atrophy Staghorn renal calculus Procedures NM KIDNEY W FLOW AND FUNCTION W PHARMACOLOGICAL INTERVENTION Christi Chance, DO [address] [place] [address] Referral ID Status Reason Start Date Expiration Date Visits Re quested Visits Authorized [id number] Open 08/03/2022 08/03/2023 1 1 Additional Source Comments INFORMATION SOURCE (unrecogn ized section and content) DATE CREATED AUTHOR 04/03/2021 [facility] DATE CREATED AUTHOR AUTHOR'S ORGANIZ ATION 03/15/2022 [facility] DATE CREATED AUTHOR AUTHOR'S ORGANIZ ATION 08/09/2022 [facility] DATE CREATED AUTHOR AUTHOR'S ORGANIZ ATION 08/11/2022 [facility] DATE CREATED AUTHOR AUTHOR'S ORGANIZ ATION 03/17/2023 [facility] DATE CREATED AUTHOR AUTHOR'S ORGANIZ ATION 08/07/2024 [facility] DATE CREATED AUTHOR AUTHOR'S ORGANIZ ATION 09/02/2024 [facility] Reason for Visit (unrecogniz ed section and content) Reason Comments Flank Pain Specialty Diagnoses / Procedures Referred By Serina bonilla Referred To Contact Diagnoses Kidney stone Acute pyelonephritis Calculous pyelonephritis Livia Cantrell MD [address] [address] [facility] [address] [place] [address] Referral ID Status Reason Start Date Expiration Date Visits Re quested Visits Authorized [id number] 1 1 Reason Comments Other nephrostamy tube got pulled. tub is broken and leaking urine. 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 1235 (Given - Provider: Ligia Mattson, BRANDON) 0812 [...] TERRY BERGMAN) 0834 (Given - Provider: Christine Campa, BRANDON)2100 (Due) heparin (porcine) injection 5,000 Units 5,000 [...] Provider: TERRY BERGMAN)1355 (Given - Provider: Christine Campa, BRANDON)2200 (Due) hydrALAZINE (APRESOLINE) tablet 25 mg 25 [...] 1615 1134 (Not Given - Provider: Christine Campa, BRANDON - Reason: Other) sodium chloride flush 0.9 [...] dose 1721 (New Bag - Provider: Brandon Roach, BRANDON)1821 (Stopped - Provider: TERRY BERGMAN)1840 (Stopped - Provider: Brandon Roach RN) tigecycline (TYGACIL) 50 mg in sodium chloride 0.9 % 100 mL IVPB 50 mg, IntraVENous, at 100 mL/hr, Administer over 60 Minutes, EVERY 12 HOURS, First dose on Lizy 07/21/22 at 0445 0532 (New Bag - Provider: TERRY BERGMAN)0533 (Rate/Dose Verify - Provider: TERRY BERGMAN)0609 (Rate/Dose Verify - Provider: TERRY BERGMAN)0639 (Stopped - Provider: Latoya Chatterjee RN)0819 (Stopped - Provider: Latoya Chatterjee RN)1705 (New Bag - Provider: Latoya Chatterjee RN)1805 (Stopped - Provider: Latoya Chatterjee RN) 0601 (New Bag - Provider: TERRY BERGMAN)0701 (Stopped - Provider: Christine Campa, RN)1614 (Not Given - Provider: Christine Campa [...] Rosette Kelley RN)1728 (Stopped - Provider: Rosette Kelley, BRANDON) Continuous Medication Order 07/20/2022 07/21/2022 07/22/2022 0.9 [...] Provider: TERRY BERGMAN)2028 (Stopped - Provider: TERRY BERGMAN)202 (Stopped - [...] with frequent/long duration piggyback infusions, Starting on Mon07/21/22 at 1553, Administer at the same rate [...] used. 0513 (See Alternative - Provider: Alexsandra Mckinley, BRANDON)1235 (See Alternative - Provider: Ligia Mattson, BRANDON)2355 [...] hour of each other unless specifically ordered. 182 (Given - Provider: Brandon Roach RN) 1026 (Given - Provider: Latoya Chatterjee, RN) glucagon (rDNA) injection 1 mg 1 [...] Mattson, BRANDON) 0812 (Given - Provider: Latoya Chatterjee, BRANDON)2141 (Given - Provider: TERRY BERGMAN) oxyCODONE-acetaminophen (PERCOCET) 5-325 MG per tablet 2 tablet (CANCELED) Mg/kg dosing is based on the oxycodone component., 2 tablet, Oral, EVERY 4 HOURS PRN, Starting on Mon07/18/22 at 2121, Until Mon07/20/22 at 1026, Pain Severe (7-10), Maximum dose of acetaminophen is 4000 mg from all sources in 24 hours. 0817 (Given - Provider: Ligia Mattson, BRANDON) polyethylene glycol (GLYCOLAX) packet 17 g 17 [...] absorption do not give by J tube. 000 (Given - Provid er: Coretta Scott RN)1216 (Given - Provider: Tesha Boggs RN)2099 (Due) DULoxetine (CYMBALTA) extended release capsule 60 [...]
Care Teams (unrecognized sec tion and content) Commuter Train Operator Relationship Specialty Start Date End Date Garry Ramos MD [address] [place] [address] PCP - General Family Medicine 07/22/22 Commuter Train Operator Relationship Specialty Start Date End Date Garry Ramos MD [address] [place] [address] PCP - General Family Medicine 07/22/22 Commuter Train Operator Relationship Specialty Start Date End Date Garry Ramos MD PCP - General Family Medicine 12/25/21 FOR RECORDS PERTAINING TO PATIENTS WHO ARE [...] BE BASED ON THE PRIMARY CLINICAL RECORDS. [employer] [facility]. provides no warranty or guarantee of the accuracy or completeness of information in this document.
== END 2024-09-13 07:32 | disposition home or self-care (01) ==
LOC: CT 07:31
PROVIDERS: PCP Family Medicine; Visit Provider Family Medicine
DX: G45.9 Transient cerebral ischemic attack, unspecified (principal)

== ENCOUNTER 2024-09-13 07:33 | Outpatient (OUT) | payer OTHER, SELFPAY ==
--- OUTSIDE RECORDS SUMMARY | 2024-09-13 07:37 | XMS_ITS | CCD ---
Author Organization [facility] Care Team Providers Care Student Career Development Specialist Name Role Phone GARRY RAMOS Referring Unavailable GARRY RAMOS Primary Care Unavailable SHOLA VILLAFUERTE Attending Unavailable SHOLA VILLAFUERTE Admitting Unavailable Garry Ramos MD Primary Care Provider [phone] CHRISTI CHANCE Referring Unavailable GARRY RAMOS Primary [...] Unavailable Garry Ramos MD Primary Care Provider [phone] DUGLAS REEDER Attending Unavailable Unavailable Unavailable Unavailable Allergies Allergy Classification Reported Allergen(s) Allergy Type Date of Onset Reaction(s) Facility Opioid Agonists (1 source) Morphine; Translations: [MORPHINE] Drug Allergy [address] [facility] Repository Penicillins (antibiotic) (1 source) Penicillin; Translations: [PENICILLIN] Drug Allergy [address] [facility] Repository (5 sources) HYDROmorphone; Translations: [HYDROMORPHONE] Drug Allergy 0 [facility] [employer] (6 sources) Morphine; Translations: [MORPHINE] Drug Allergy 6 [employer] [employer] Work Phone: (7 sources) Penicillins; Translations: [Penicillins] Propensity to adverse reactions to drug 9 Anaphylaxis [facility] [employer] (4 sources) Ciprofloxacin; Translations: [CIPROFLOXACIN] Drug Allergy 6 [employer] (1 source) penicillAMINE Drug Allergy [facility] [employer] Other (2 sources) Ciprofloxacin Drug Allergy 6 [facility] Repository (1 source) HYDROmorphone Drug Allergy [facility] Repository (2 sources) Morphine Drug Allergy 9 [facility] Repository Medications Current Medications Medication [...] Start: 03-21-2020 take 2 tablets by mo [facility] every twelve hours Gabapentin 600 MG 2 [...] Until Discontinued, Nausea, Vomiting polyethylene glycol 3350 75164 mg powder for oral solution (2 sources) [...] disease (1 source) Atherosclerotic heart disease of [place] coronary artery without angina pectoris; Translations: [[facility] [place] W/O ANGINA PECTORIS] Onset: 07-20-2022 Chronic [...] aftercare (3 sources) Patient encounter status; Translations: [[facility] (current) use of non-steroidal anti-inflammatories (NSAID)] Onset: [...] Onset: 04-15-2022 Episodic Other aftercare (1 source) [facility] (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; Translations: [ACCOUNT DEVELOPER CURRENT USE OF ASPIRIN] Onset: 07-20-2022 Episodic Other aftercare (1 source) Other correction (current) drug therapy; Translations: [OTH ACCOUNT DEVELOPER CURRENT DRUG THERAPY] Onset: 07-20-2022 Episodic Other aftercare (1 source) [facility] (current) use of oral hypoglycemic drugs; Translations: [ACCOUNT DEVELOPER USE ORAL HYPOGLYCEMIC DX] Onset: 07-20-2022 Episodic Other screening for suspected conditions (not mental disorders or infectious disease) (1 source) Encounter for screening for malignant neoplasm of rectum; Translations: [ENC SCREEN MALIG NEOPLASM RECTUM] Onset: 04-19-2022 Episodic Urinary tract infections (6 sources) Acute pyelonephritis; Translations: [Acute pyelonephritis] Onset: 07-19-2022 Episodic Results Test Name Value Interpretation Reference Range Facility Office Visiton 09-02-2024 Follow-up visit [id number] Asa Thompson 1970 F Date Provider Department Center 09/02/2024 Herminio-DUGLAS REEDER [facility] Family History Problem Relation Age of Onset Coronary artery disease Father Other Father Family Status - Relation Status Age at Father Level of Service:79693 SC OFFICE/OUTPATIENT NEW MODERATE MDM 45 MINUTES Normal [facility] CBC AND AUTO DIFFon 08-06-20 ABSOLUTE BASOPHIL 0.0 X10E9/L Normal 0.0-0.2 [facility] Comment on above: Performed By: #### C BCA, 29890-6, CMP #### [facility] ([id number]) [address] [place] [address], [place] [address] #### HA1C #### [facility] ([id number]) [address], [address] [place] [address] ABSOLUTE NEUTROPHIL 4.0 X10E9/L Normal 1.5-6.6 [facility] Comment on above: Performed By: #### Jaimee CH, 33625-1, CMP #### [facility] ([id number]) [address] [place] [address] #### HALulu #### [facility] ([id number]) [address] [facility], [address] [place] [address] Basophils/100 WBC (Bld) 0.6 % Normal [facility] Comment on above: Performed By: #### Jaimee CH, 32278-2, CMP #### [facility] ([id number]) [address] [place] [address] 06352 #### ARUN #### [facility] ([id number]) [address] [facility], [address] [place] [address] Eosinophils (Bld) [#/Vol] 0.2 10*3/uL Normal 0.0-0.4 [facility] Comment on above: Performed By: #### Jaimee CH, 91610-1, CMP #### [facility] ([id number]) [address] [place] [address] 93603 #### HALulu #### [facility] ([id number]) [address], [address] [place] [address] Eosinophils/100 WBC (Bld) 2.3 % Normal [facility] Comment on above: Performed By: #### Jaimee CH, 27446-0, CMP #### [facility] ([id number]) [address] [place] [address] 34494 #### HALulu #### [facility] ([id number]) [address], [address] [place] [address] Erythrocyte distribution width (RBC) [Ratio] 15.1 % High 11.5-15.0 [facility] Comment on above: Performed By: #### Jaimee CH, 93182-9, CMP #### [facility] ([id number]) [address] [place] [address] 62793 #### HA1C #### [facility] ([id number]) [address], [address] [place] [address] Hematocrit (Bld) [Volume fraction] 32.9 % Low 35-47 [facility] Comment on above: Performed By: #### Jaimee CH, 45990-6, CMP #### [facility] ([id number]) [address] [place] [address] 18086 #### HA1C #### [facility] ([id number]) [address], [address] [place] [address] Hemoglobin (Bld) [Mass/Vol] 11.4 g/dL Low 11.7-15.5 [facility] Comment on above: Performed By: #### Jaimee CH, 55169-0, CMP #### [facility] ([id number]) [address] [place] [address] 79527 #### HA1C #### [facility] ([id number]) [address], [address] [place] [address] Lymphocytes (Bld) [#/Vol] 2.4 10*3/uL Normal 1.0-3.5 [facility] Comment on above: Performed By: #### Jaimee CH, 16528-6, CMP #### [facility] ([id number]) [address] [place] [address] 10022 #### HA1C #### [facility] ([id number]) [address], [address] [place] [address] Lymphocytes/100 WBC (Bld) 33.9 % Normal [facility] Comment on above: Performed By: #### C DIMA, 76779-6, CMP #### [facility] ([id number]) [address] [place] [address] 43050 #### HALulu #### [facility] ([id number]) [address], [address] [place] [address] MCH (RBC) [Entitic mass] 29.2 pg Normal 27-34 [facility] Comment on above: Performed By: #### C DIMA, 73766-5, CMP #### [facility] ([id number]) [address] [place] [address] 52423 #### HALulu #### [facility] ([id number]) [address], [address] [place] [address] MCHC (RBC) [Mass/Vol] 34.7 g/dL Normal 32-36 [facility] Comment on above: Performed By: #### Jaimee CH, 51457-3, CMP #### [facility] ([id number]) [address] [place] [address] 45472 #### HALulu #### [facility] ([id number]) [address], [address] [place] [address] MCV (RBC) [Entitic vol] 84 fL Normal 80-100 [facility] Comment on above: Performed By: #### Jaimee CH, 15071-8, CMP #### [facility] ([id number]) [address] [place] [address] 89467 #### HA1C #### [facility] ([id number]) [address], [address] [place] [address] Monocytes (Bld) [#/Vol] 0.4 10*3/uL Normal 0-0.9 [facility] Comment on above: Performed By: #### Jaimee CH, 75138-1, CMP #### [facility] ([id number]) [address] [place] [address] 26927 #### HALulu #### [facility] ([id number]) [address], [address] [place] [address] Monocytes/100 WBC (Bld) 6.2 % Normal [facility] Comment on above: Performed By: #### Jaimee CH, 29647-8, CMP #### [facility] ([id number]) [address] [place] [address] 64284 #### HALulu #### [facility] ([id number]) [address], [address] [place] [address] Neutrophils/100 WBC (Bld) 57.0 % Normal [facility] Comment on above: Performed By: #### Jaimee CH, 75391-2, CMP #### [facility] ([id number]) [address] [place] [address] 69699 #### ARUN #### [facility] ([id number]) [address], [address] [place] [address] Platelet mean volume (Bld) [Entitic vol] 8.2 fL Normal 7-12 [facility] Comment on above: Performed By: #### Jaimee CH, 04870-7, CMP #### [facility] ([id number]) [address] [place] [address] 44692 #### HA1C #### [facility] ([id number]) [address], [address] [place] [address] Platelets (Bld) [#/Vol] 336 10*3/uL Normal 150-450 [facility] Comment on above: Performed By: #### Jaimee CH, 35042-7, CMP #### [facility] ([id number]) [address] [place] [address] 09940 #### HA1C #### [facility] ([id number]) [address] [place] [address] [address] [place] [address] RBC COUNT 3.91 X10E12/L Normal 3.80-5.20 [facility] Comment on above: Performed By: #### Jaimee CH, 63928-0, CMP #### [facility] ([id number]) [address] [place] [address] 53244 #### HA1C #### [facility] ([id number]) [address] [place] [address], [address] [address] WBC (Bld) [#/Vol] 7.1 10*3/uL Normal 4.0-11.0 [facility] Comment on above: Performed By: #### Jaimee CH, 62244-1, CMP #### [facility] ([id number]) [address] [place] [address] 95085 #### HA1C #### [facility] ([id number]) [address] [place] [address], [address] [address] COMPREHENSIVE METABOLIC PANE [facility] 08-06-2024 Albumin [Mass/Vol] 3.6 g/dL Normal 3.2-5.3 [facility] Comment on above: Performed By: #### Jaimee CH, 99246-6, CMP #### [facility] ([id number]) [address] [place] [address] 14368 #### HA1C #### [facility] ([id number]) [address] [place] [address] ALP [Catalytic activity/Vol] 87 U/L Normal 39-130 [facility] Comment on above: Performed By: #### Jaimee BCA, 27957-4, CMP #### [facility] ([id number]) [address] [place] [address], [place] [address] #### HA1C #### [facility] ([id number]) [address], [address] [place] [address] ALT [Catalytic activity/Vol] 19 U/L Normal 0-31 [facility] Comment on above: Performed By: #### Jaimee CH, 63162-7, CMP #### [facility] ([id number]) [address] [place] [address] 26324 #### HA1C #### [facility] ([id number]) [address], [address] [place] [address] Anion gap [Moles/Vol] 10 mmol/L Normal 5-15 [facility] Comment on above: Performed By: #### Jaimee CH, 83542-0, CMP #### [facility] ([id number]) [address] [place] [address] 78308 #### HA1C #### [facility] ([id number]) [address] [facility] [facility], [address] [place] [address] AST [Catalytic activity/Vol] 20 U/L Normal 0-41 [facility] Comment on above: Performed By: #### Jaimee CH, 09727-3, CMP #### [facility] ([id number]) [address] [place] [address] 71562 #### HA1C #### [facility] ([id number]) [address], [address] [place] [address] Bilirubin [Mass/Vol] 0.3 mg/dL Normal 0.3-1.2 [facility] Comment on above: Performed By: #### Jaimee CH, 53366-9, CMP #### [facility] ([id number]) [address] [place] [address] 12814 #### HA1C #### [facility] ([id number]) [address], [address] [place] [address] Calcium [Mass/Vol] 8.8 mg/dL Normal 8.5-10.5 [facility] Comment on above: Performed By: #### C DIMA, 50298-5, CMP #### [facility] ([id number]) [address] [place] [address] 86767 #### HA1C #### [facility] ([id number]) [address] [facility], [address] [place] [address] Chloride [Moles/Vol] 103 mmol/L Normal 98-109 [facility] Comment on above: Performed By: #### C DIMA, 39267-5, CMP #### [facility] ([id number]) [address] [place] [address] 17886 #### HA1C #### [facility] ([id number]) [address] [facility], [address] [place] [address] CO2 [Moles/Vol] 19 mmol/L Low 22-32 [facility] Comment on above: Performed By: #### C DIMA, 95769-4, CMP #### [facility] ([id number]) [address] [place] [address] 37241 #### HA1C #### [facility] ([id number]) [address] [facility], [address] [place] [address] Creatinine [Mass/Vol] 1.58 mg/dL High 0.40-1.00 [facility] Comment on above: Result Comment: METH OD TRACEABLE TO IDMS STANDARD Performed By: #### C DIMA, 52234-9, CMP #### [facility] ([id number]) [address] [place] [address] 81268 #### HA1C #### [facility] ([id number]) [address], [address] [place] [address] GFR/1.73 sq M.predicted among non-blacks MDRD (S/P/Bld) [Vol rate/Area] 39 mL/min/{1.73_m2} Low >59 [facility] Comment on above: Result Comment: Reported eGFR is based on the CKD-EPI 1 equation that does not use a race coefficient. Performed By: #### C DIMA, 71412-6, CMP #### [facility] ([id number]) [address] [place] [address] 60490 #### HA1C #### [facility] ([id number]) [address] [facility] [address] [place] [address] Glucose [Mass/Vol] 312 mg/dL High 65-99 [facility] Comment on above: Performed By: #### C DIMA, 59594-0, CMP #### [facility] ([id number]) [address] [place] [address] 97758 #### HA1C #### [facility] ([id number]) [address] [facility] [facility], [address] [place] [address] Potassium [Moles/Vol] 4.7 mmol/L Normal 3.5-5.0 [facility] Comment on above: Performed By: #### C DIMA, 13724-1, CMP #### [facility] ([id number]) [address] [place] [address] 32773 #### HA1C #### [facility] ([id number]) [address], [address] [place] [address] Protein [Mass/Vol] 6.7 g/dL Normal 6.0-8.0 [facility] Comment on above: Performed By: #### C BCA, 09111-2, CMP #### [facility] ([id number]) [address] [place] [address] 35412 #### HA1C #### [facility] ([id number]) [address], [address] [place] [address] Sodium [Moles/Vol] 132 mmol/L Low 134-146 [facility] Comment on above: Performed By: #### Jaimee CH, 09289-4, CMP #### [facility] ([id number]) [address] [place] [address] 34340 #### HA1C #### [facility] ([id number]) [address], [address] [place] [address] Urea nitrogen [Mass/Vol] 29 mg/dL High 5-23 [facility] Comment on above: Performed By: #### Jaimee CH, 38772-0, CMP #### [facility] ([id number]) [address] [place] [address] 15247 #### HA1C #### [facility] ([id number]) [address] [place] [address] Glucose Glucometer (BldC) [M ass/Vol]on 08-06-2024 Glucose [Mass/Vol] 319 mg/dL High 65-99 [facility] Heparin unfractionated Chrom ogenic method Qn (PPP)on 08-06-2024 ANTI XA UFH 0.29 IU/mL Low 0.30-0.70 [facility] Comment on above: Result Comment: Opti mal time for testing is 6 hrs post dosage This test is specific for monitoring patients on UFH, and is not recommended for use with other Anti-Xa medications. Performed By: #### Jaimee CH, 39008-2, CMP #### [facility] ([id number]) [address] [place] [address] 88960 #### HA1C #### [facility] ([id number]) [address], [address] [place] [address] ANTI XA UFH 0.33 IU/mL Normal 0.30-0.70 [facility] Comment on above: Result Comment: Opti mal time for testing is 6 hrs post dosage This test is specific for monitoring patients on UFH, and is not recommended for use with other Anti-Xa medications. Performed By: #### Jaimee CH, 11131-6, CMP #### [facility] ([id number]) [address] [place] [address] 53872 #### HA1C #### [facility] ([id number]) [address] [facility], [address] [place] [address] MAGNESIUMon 08-06-2024 Magnesium [Mass/Vol] 1.8 mg/dL Normal 1.8-2.6 [facility] Comment on above: Performed By: #### Jaimee CH, 38463-2, CMP #### [facility] ([id number]) [address] [place] [address] 72515 #### HA1C #### [facility] ([id number]) [address] [facility], [address] [place] [address] CBC AND AUTO DIFFon 08-05-20 24 ABSOLUTE BASOPHIL 0.0 X10E9/L Normal 0.0-0.2 [facility] Comment on above: Performed By: #### Jaimee CH, 76481-1, CMP #### [facility] ([id number]) [address] [place] [address] 82155 #### HA1C #### [facility] ([id number]) [address] [facility], [address] [place] [address] ABSOLUTE NEUTROPHIL 3.0 X10E9/L Normal 1.5-6.6 [facility] Comment on above: Performed By: #### Jaimee CH, 40846-9, CMP #### [facility] ([id number]) [address] [place] [address] 44361 #### HA1C #### [facility] ([id number]) [address] [facility], [address] [place] [address] Basophils/100 WBC (Bld) 0.4 % Normal [facility] Comment on above: Performed By: #### Jaimee CH, 96240-1, CMP #### [facility] ([id number]) [address] [place] [address] 43218 #### HA1C #### [facility] ([id number]) [address] [place] [address] Eosinophils (Bld) [#/Vol] 0.1 10*3/uL Normal 0.0-0.4 [facility] Comment on above: Performed By: #### Jaimee CH, 48263-7, CMP #### [facility] ([id number]) [address] [place] [address] 06871 #### HALulu #### [facility] ([id number]) [address] [place] [address] Eosinophils/100 WBC (Bld) 2.6 % Normal [facility] Comment on above: Performed By: #### Jiamee CH, 78367-8, CMP #### [facility] ([id number]) [address] [place] [address] 66460 #### HALulu #### [facility] ([id number]) [address] [place] [address] Erythrocyte distribution width (RBC) [Ratio] 14.7 % Normal 11.5-15.0 [facility] Comment on above: Performed By: #### Jaimee CH, 32302-7, CMP #### [facility] ([id number]) [address] [place] [address] 74826 #### HA1C #### [facility] ([id number]) [address] [place] [address] Hematocrit (Bld) [Volume fraction] 32.3 % Low 35-47 [facility] Comment on above: Performed By: #### C DIMA, 22115-7, CMP #### [facility] ([id number]) [address] [place] [address] 70119 #### HA1C #### [facility] ([id number]) [address] [place] [address] Hemoglobin (Bld) [Mass/Vol] 11.1 g/dL Low 11.7-15.5 [facility] Comment on above: Performed By: #### C DIMA, 29711-7, CMP #### [facility] ([id number]) [address] [place] [address] 00469 #### HA1C #### [facility] ([id number]) [address] [facility], [address] [place] [address] Lymphocytes (Bld) [#/Vol] 1.8 10*3/uL Normal 1.0-3.5 [facility] Comment on above: Performed By: #### Jaimee CH, 72698-4, CMP #### [facility] ([id number]) [address] [place] [address] 02834 #### HA1C #### [facility] ([id number]) [address] [place] [address] Lymphocytes/100 WBC (Bld) 34.0 % Normal [facility] Comment on above: Performed By: #### Jaimee CH, 82576-3, CMP #### [facility] ([id number]) [address] [place] [address] 42226 #### HA1C #### [facility] ([id number]) [address], [address] [place] [address] MCH (RBC) [Entitic mass] 29.1 pg Normal 27-34 [facility] Comment on above: Performed By: #### C DIMA, 52582-2, CMP #### [facility] ([id number]) [address] [place] [address] 91052 #### ARUN #### [facility] ([id number]) [address] [place] [address] MCHC (RBC) [Mass/Vol] 34.3 g/dL Normal 32-36 [facility] Comment on above: Performed By: #### C DIMA, 33972-9, CMP #### [facility] ([id number]) [address] [place] [address] 15741 #### ARUN #### [facility] ([id number]) [address] [place] [address] MCV (RBC) [Entitic vol] 85 fL Normal 80-100 [facility] Comment on above: Performed By: #### Jaimee CH, 80224-2, CMP #### [facility] ([id number]) [address] [place] [address] 64591 #### ARUN #### [facility] ([id number]) [address] [place] [address] Monocytes (Bld) [#/Vol] 0.3 10*3/uL Normal 0-0.9 [facility] Comment on above: Performed By: #### Jaimee CH, 54841-7, CMP #### [facility] ([id number]) [address] [place] [address] 22339 #### HALuul #### [facility] ([id number]) [address] [place] [address] Monocytes/100 WBC (Bld) 5.9 % Normal [facility] Comment on above: Performed By: #### Jaimee CH, 61913-8, CMP #### [facility] ([id number]) [address] [place] [id number] #### HA1C #### [facility] ([id number]) [address] [facility], [address] [place] [address] Neutrophils/100 WBC (Bld) 57.1 % Normal [facility] Comment on above: Performed By: #### [place], [address]-8, CMP #### [facility] ([id number]) [address] [place] [id number] #### HA1C #### [facility] ([id number]) [address] [facility], [facility] [address] [place] [address] Platelet mean volume (Bld) [Entitic vol] 8.3 fL Normal 7-12 [facility] Comment on above: Performed By: #### [place] CH, [address]-5, CMP #### [facility] ([id number]) [address] [place] [address] #### HALulu #### [facility] ([id number]) [address] [facility], [address] [address] Platelets (Bld) [#/Vol] 321 10*3/uL Normal 150-450 [facility] Comment on above: Performed By: #### Jaimee CH, 45601-5, CMP #### [facility] ([id number]) [address] [place] [address] #### HA1C #### [facility] ([id number]) [address] [facility], [facility] [address] [place] [address] RBC COUNT 3.81 X10E12/L Normal 3.80-5.20 [facility] Comment on above: Performed By: #### [place]ime[place] CH, [address]-8, CMP #### [facility] ([id number]) [address] [place] [address] #### HA1C #### [facility] ([id number]) [address] [facility], [address] [place] [address] WBC (Bld) [#/Vol] 5.2 10*3/uL Normal 4.0-11.0 [facility] Comment on above: Performed By: #### C BCA, 22793-8, CMP #### [facility] ([id number]) [address] [place] [address] 70192 #### HA1C #### [facility] ([id number]) [address] [place] [address], [address] [place] [address] COMPREHENSIVE METABOLIC PANE [facility] 08-05-2024 Albumin [Mass/Vol] 3.4 g/dL Normal 3.2-5.3 [facility] Comment on above: Performed By: #### C BCA, 19515-3, CMP #### [facility] ([id number]) [address] [place] [address] 54488 #### HA1C #### [facility] ([id number]) [address] [place] [address], [address] [place] [address] ALP [Catalytic activity/Vol] 88 U/L Normal 39-130 [facility] Comment on above: Performed By: #### C BCA, 99872-6, CMP #### [facility] ([id number]) [address] [place] [address] 68431 #### HA1C #### [facility] ([id number]) [address] [place] [address], [address] [place] [address] ALT [Catalytic activity/Vol] 19 U/L Normal 0-31 [facility] Comment on above: Performed By: #### C BCA, 53502-9, CMP #### [facility] ([id number]) [address] [place] [address] 89108 #### HA1C #### [facility] ([id number]) [address], [address] [place] [address] Anion gap [Moles/Vol] 8 mmol/L Normal 5-15 [facility] Comment on above: Performed By: #### C DIMA, 86946-8, CMP #### [facility] ([id number]) [address] [place] [address] 26071 #### HA1C #### [facility] ([id number]) [address], [address] [place] [address] AST [Catalytic activity/Vol] 17 U/L Normal 0-41 [facility] Comment on above: Performed By: #### C DIMA, 53962-1, CMP #### [facility] ([id number]) [address] [place] [address] 19556 #### HALulu #### [facility] ([id number]) [address], [address] [place] [address] Bilirubin [Mass/Vol] 0.5 mg/dL Normal 0.3-1.2 [facility] Comment on above: Performed By: #### Jaimee CH, 51526-6, CMP #### [facility] ([id number]) [address] [place] [address] 72526 #### HA1C #### [facility] ([id number]) [address], [address] [place] [address] Calcium [Mass/Vol] 9.0 mg/dL Normal 8.5-10.5 [facility] Comment on above: Performed By: #### Jaimee CH, 20658-4, CMP #### [facility] ([id number]) [address] [place] [address] 29386 #### HA1C #### [facility] ([id number]) [address], [address] [place] [address] Chloride [Moles/Vol] 104 mmol/L Normal 98-109 [facility] Comment on above: Performed By: #### C DIMA, 16108-7, CMP #### [facility] ([id number]) [address] [place] [address] 75512 #### HA1C #### [facility] ([id number]) [address] [facility], [address] [place] [address] CO2 [Moles/Vol] 20 mmol/L Low 22-32 [facility] Comment on above: Performed By: #### C DIMA, 86806-2, CMP #### [facility] ([id number]) [address] [place] [address] 52983 #### HA1C #### [facility] ([id number]) [address] [facility], [address] [place] [address] Creatinine [Mass/Vol] 1.64 mg/dL High 0.40-1.00 [facility] Comment on above: Result Comment: METH OD TRACEABLE TO IDMS STANDARD Performed By: #### Jaimee CH, 25786-1, CMP #### [facility] ([id number]) [address] [place] [address] 27279 #### HA1C #### [facility] ([id number]) [address] [facility], [address] [place] [address] GFR/1.73 sq M.predicted among non-blacks MDRD (S/P/Bld) [Vol rate/Area] 37 mL/min/{1.73_m2} Low >59 [facility] Comment on above: Result Comment: Reported eGFR is based on the CKD-EPI 2020 equation that does not use a race coefficient. Performed By: #### Jaimee CH, 85196-5, CMP #### [facility] ([id number]) [address] [place] [address] 48645 #### HA1C #### [facility] ([id number]) [address], [address] [place] [address] Glucose [Mass/Vol] 241 mg/dL High 65-99 [facility] Comment on above: Performed By: #### C DIMA, 53534-3, CMP #### [facility] ([id number]) [address] [place] [address] 72193 #### HA1C #### [facility] ([id number]) [address], [address] [place] [address] Potassium [Moles/Vol] 4.6 mmol/L Normal 3.5-5.0 [facility] Comment on above: Performed By: #### C DIMA, 70297-0, CMP #### [facility] ([id number]) [address] [place] [address] 15764 #### HA1C #### [facility] ([id number]) [address], [address] [place] [address] Protein [Mass/Vol] 6.7 g/dL Normal 6.0-8.0 [facility] Comment on above: Performed By: #### C DIMA, 86378-0, CMP #### [facility] ([id number]) [address] [place] [address] 48269 #### HA1C #### [facility] ([id number]) [address], [address] [place] [address] Sodium [Moles/Vol] 132 mmol/L Low 134-146 [facility] Comment on above: Performed By: #### C DIMA, 87518-8, CMP #### [facility] ([id number]) [address] [place] [address] 93385 #### HA1C #### [facility] ([id number]) [address] [facility], [address] [place] [address] Urea nitrogen [Mass/Vol] 33 mg/dL High 5-23 [facility] Comment on above: Performed By: #### Jaimee CH, 59382-6, CMP #### [facility] ([id number]) [address] [place] [address] 26432 #### HA1C #### [facility] ([id number]) [address] [facility], [address] [place] [address] Glucose Glucometer (BldC) [M ass/Vol]on 08-05-2024 Glucose [Mass/Vol] 372 mg/dL High 65-99 [facility] Glucose [Mass/Vol] 362 mg/dL High 65-99 [facility] Glucose [Mass/Vol] 376 mg/dL High 65-99 [facility] Glucose [Mass/Vol] 398 mg/dL High 65-99 [facility] HEMOGLOBINon 08-05-2024 Hemoglobin (Bld) [Mass/Vol] 11.6 g/dL Low 11.7-15.5 [facility] Comment on above: Performed By: #### Jaimee CH, 60952-0, CMP #### [facility] ([id number]) [address] [place] [address] 16764 #### HA1C #### [facility] ([id number]) [address] [facility], [address] [place] [address] Heparin unfractionated Chrom ogenic method Qn (PPP)on 08-05-2024 ANTI XA UFH 0.44 IU/mL Normal 0.30-0.70 [facility] Comment on above: Result Comment: Opti mal time for testing is 6 hrs post dosage This test is specific for monitoring patients on UFH, and is not recommended for use with other Anti-Xa medications. Performed By: #### Jaimee CH, 33911-6, CMP #### [facility] ([id number]) [address] [place] [address] 54258 #### HA1C #### [facility] ([id number]) [address] [facility], [address] [place] [address] MAGNESIUMon 08-05-2024 Magnesium [Mass/Vol] 2.1 mg/dL Normal 1.8-2.6 [facility] Comment on above: Performed By: #### Jaimee CH, 35925-1, CMP #### [facility] ([id number]) [address] [place] [address] 70663 #### HA1C #### [facility] ([id number]) [address] [facility], [address] [place] [address] MR BRAIN WO CONTon MR BRAIN WO [...] Pelayo MD on 08/05/2024 10:34 AM Normal [facility] PLATELET COUNT AND MPVon Platelet mean volume (Bld) [Entitic vol] 8.3 fL Normal 7-12 [facility] Comment on above: Performed By: #### Jaimee CH, 01534-7, CMP #### [facility] ([id number]) [address] [place] [address] 43873 #### HA1C #### [facility] ([id number]) [address] [facility], [address] [place] [address] Platelets (Bld) [#/Vol] 335 10*3/uL Normal 150-450 [facility] Comment on above: Performed By: #### Jaimee CH, 07971-3, CMP #### [facility] ([id number]) [address] [place] [address] 12484 #### HA1C #### [facility] ([id number]) [address] [place] [address] PROTIME AND INRon 08-05-2024 INR Coag (PPP) [Relative time] 1.0 {INR} Normal 0.8-1.1 [facility] Comment on above: Performed By: #### Jaimee CH, 22119-0, CMP #### [facility] ([id number]) [address] [place] [address] 75593 #### HA1C #### [facility] ([id number]) [address] [facility], [address] [address] PT Coag (PPP) [Time] 11.7 s Normal 9.8-13.2 [facility] Comment on above: Result Comment: NEW REFERENCE RANGE Performed By: #### Jaimee CH, 01769-7, CMP #### [facility] ([id number]) [address] [place] [address] 70139 #### HA1C #### [facility] ([id number]) [address] [facility], [address] [place] [address] aPTT Coag (PPP) [Time]on aPTT Coag (Bld) [Time] 81 s High 26-37 [facility] Comment on above: Result Comment: NEW REFERENCE RANGE Performed By: #### Jaimee CH, 24059-3, CMP #### [facility] ([id number]) [address] [place] [address] 20467 #### HA1C #### [facility] ([id number]) [address], [address] [place] [address] CBC AND AUTO DIFFon 08-04-20 24 ABSOLUTE BASOPHIL 0.0 X10E9/L Normal 0.0-0.2 [facility] Comment on above: Performed By: #### C BCA, CMP, 13597-5 ####[facility] ([id number])[address] [place] [address] 61615#### 14383-6, 2088-11 ####[facility] ([id number])[address], [address], [place] [address] ABSOLUTE NEUTROPHIL 2.8 X10E9/L Normal 1.5-6.6 [facility] Comment on above: Performed By: #### C BCA, CMP, 95898-2 ####[facility] ([id number])[address] [place] [address] 40937#### 55277-7, 2088-11 ####[facility] ([id number])[address], [address], [place] [address] Basophils/100 WBC (Bld) 0.4 % Normal [facility] Comment on above: Performed By: #### C BCA, CMP, ####[facility] ([id number])[address] [place] [address] 50759#### 39989-5, 2088-11 ####[facility] ([id number])[address], [address] [address] Eosinophils (Bld) [#/Vol] 0.2 10*3/uL Normal 0.0-0.4 [facility] Comment on above: Performed By: #### C BCA, CMP, 52805-0 ####[facility] ([id number])[address] [place] [address] 93922#### 14375-6, 2088-11 ####[facility] ([id number])[address], [address], [place] [address] Eosinophils/100 WBC (Bld) 2.8 % Normal [facility] Comment on above: Performed By: #### C BCA, CMP, ####[facility] ([id number])[address] [place] [address] 84068#### 49353-4, 2088-11 ####[facility] ([id number])[address], [address], [place] [address] Erythrocyte distribution width (RBC) [Ratio] 15.1 % High 11.5-15.0 [facility] Comment on above: Performed By: #### C BCA, CMP, ####[facility] ([id number])[address] [place] [address] 80594#### 55001-5, 2088-11 ####[facility] ([id number])[address], [address], [place] [address] Hematocrit (Bld) [Volume fraction] 33.6 % Low 35-47 [facility] Comment on above: Performed By: #### C BCA, CMP, ####[facility] ([id number])[address] [place] [address] 23496#### 09435-0, 2088-11 ####[facility] ([id number])[address], [address] [place] [address] Hemoglobin (Bld) [Mass/Vol] 11.3 g/dL Low 11.7-15.5 [facility] Comment on above: Performed By: #### C BCA, CMP, 42270-1 ####[facility] ([id number])[address] [place] [address] 72197#### 73299-8, 2088-11 ####[facility] ([id number])[address], [address], [place] [address] Lymphocytes (Bld) [#/Vol] 2.3 10*3/uL Normal 1.0-3.5 [facility] Comment on above: Performed By: #### C BCA, CMP, ####[facility] ([id number])[address] [place] [address] 96264#### 39098-0, 2088-11 ####[facility] ([id number])[address], [address] [place] [address] Lymphocytes/100 WBC (Bld) 41.0 % Normal [facility] Comment on above: Performed By: #### Jaimee BCA, CMP, ####[facility] ([id number])[address] [place] [address] 90073#### 38603-4, 2088-11 ####[facility] ([id number])[address], [address] [place] [address] MCH (RBC) [Entitic mass] 28.4 pg Normal 27-34 [facility] Comment on above: Performed By: #### C BCA, CMP, ####[facility] ([id number])[address] [place] [address] 51826#### 74074-8, 2088-11 ####[facility] ([id number])[address], [address] [address] MCHC (RBC) [Mass/Vol] 33.6 g/dL Normal 32-36 [facility] Comment on above: Performed By: #### C BCA, CMP, ####[facility] ([id number])[address] [place] [address] 17560#### 70987-5, 2088-11 ####[facility] ([id number])[address], [address], [place] [address] MCV (RBC) [Entitic vol] 85 fL Normal 80-100 [facility] Comment on above: Performed By: #### C BCA, CMP, ####[facility] ([id number])[address] [place] [address] 13327#### 67298-2, 2088-11 ####[facility] ([id number])[address], [address] [place] [address] Monocytes (Bld) [#/Vol] 0.4 10*3/uL Normal 0-0.9 [facility] Comment on above: Performed By: #### Jaimee BCA, CMP, ####[facility] ([id number])[address] [place] [address] 67272#### 96521-3, 2088-11 ####[facility] ([id number])[address], [address] [place] [address] Monocytes/100 WBC (Bld) 6.6 % Normal [facility] Comment on above: Performed By: #### C BCA, CMP, ####[facility] ([id number])[address] [place] [address] 78630#### 00445-9, 2088-11 ####[facility] ([id number])[address], [address] [address] Neutrophils/100 WBC (Bld) 49.2 % Normal [facility] Comment on above: Performed By: #### C BCA, CMP, 26884-5 ####[facility] ([id number])[address] [place] [address] 63366#### 54746-1, 2088-11 ####[facility] ([id number])[address], [address] [address] Platelet mean volume (Bld) [Entitic vol] 8.3 fL Normal 7-12 [facility] Comment on above: Performed By: #### C BCA, CMP, 01690-4 ####[facility] ([id number])[address] [place] [address] 23782#### 54646-7, 2088-11 ####[facility] ([id number])[address], [address], [place] [address] Platelets (Bld) [#/Vol] 311 10*3/uL Normal 150-450 [facility] Comment on above: Performed By: #### Jaimee BCA, CMP, 39508-4 ####[facility] ([id number])[address] [place] [address] 97426#### 89434-0, 2088-11 ####[facility] ([id number])[address], [address], [place] [address] RBC COUNT 3.97 X10E12/L Normal 3.80-5.20 [facility] Comment on above: Performed By: #### C BCA, CMP, 40904-6 ####[facility] ([id number])[address] [place] [address] 67914#### 98759-7, 2088-11 ####[facility] ([id number])[address], [address] [address] WBC (Bld) [#/Vol] 5.7 10*3/uL Normal 4.0-11.0 [facility] Comment on above: Performed By: #### C BCA, CMP, ####[facility] ([id number])[address] [place] [address] 20704#### 48890-6, 2088-11 ####[facility] ([id number])[address], [address] [place] [address] COMPREHENSIVE METABOLIC PANE Chay 08-04-2024 Albumin [Mass/Vol] 3.5 g/dL Normal 3.2-5.3 [facility] Comment on above: Performed By: #### C BCA, CMP, ####[facility] ([id number])[address] [place] [address] 42477#### 61083-2, 2088-11 ####[facility] ([id number])[address], [address] [place] [address] ALP [Catalytic activity/Vol] 85 U/L Normal 39-130 [facility] Comment on above: Performed By: #### C BCA, CMP, ####[facility] ([id number])[address] [place] [address] 39236#### 99741-3, 2088-11 ####[facility] ([id number])[address], [address] [place] [address] ALT [Catalytic activity/Vol] 15 U/L Normal 0-31 [facility] Comment on above: Performed By: #### C BCA, CMP, ####[facility] ([id number])[address] [place] [address] 49770#### 19813-9, 2088-11 ####[facility] ([id number])[address], [address], [place] [address] Anion gap [Moles/Vol] 9 mmol/L Normal 5-15 [facility] Comment on above: Performed By: #### C BCA, CMP, ####[facility] ([id number])[address] [place] [address] 55964#### 69308-4, 2088-11 ####[facility] ([id number])[address], [address] [address] AST [Catalytic activity/Vol] 13 U/L Normal 0-41 [facility] Comment on above: Performed By: #### C BCA, CMP, ####[facility] ([id number])[address] [place] [address] 96731#### 22622-3, 2088-11 ####[facility] ([id number])[address] [facility], [address], [place] [address] Bilirubin [Mass/Vol] 0.5 mg/dL Normal 0.3-1.2 [facility] Comment on above: Performed By: #### C BCA, CMP, ####[facility] ([id number])[address] [place] [address] 24667#### 33172-6, 2088-11 ####[facility] ([id number])[address] [facility], [address] [address] Calcium [Mass/Vol] 9.0 mg/dL Normal 8.5-10.5 [facility] Comment on above: Performed By: #### C BCA, CMP, ####[facility] ([id number])[address] [place] [address] 04276#### 57548-6, 2088-11 ####[facility] ([id number])[address], [address], [place] [address] Chloride [Moles/Vol] 103 mmol/L Normal 98-109 [facility] Comment on above: Performed By: #### C GERMANIA CH, ####[facility] ([id number])[address] [place] [address] 89647#### 54078-0, 2088-11 ####[facility] ([id number])[address] [facility], [address] [address] CO2 [Moles/Vol] 21 mmol/L Low 22-32 [facility] Comment on above: Performed By: #### C GERMANIA CH, ####[facility] ([id number])[address] [place] [address] 54123#### 26124-3, 2088-11 ####[facility] ([id number])[address] [facility], [address] [address] Creatinine [Mass/Vol] 1.85 mg/dL High 0.40-1.00 [facility] Comment on above: Result Comment: METH OD TRACEABLE TO IDMS STANDARD Performed By: #### C GERMANIA CH, ####[facility] ([id number])[address] [place] [address] 56493#### 81042-3, 2088-11 ####[facility] ([id number])[address] [address] GFR/1.73 sq M.predicted among non-blacks MDRD (S/P/Bld) [Vol rate/Area] 32 mL/min/{1.73_m2} Low >59 [facility] Comment on above: Result Comment: Reported eGFR is based on the CKD-EPI 2020 equation that does not use a race coefficient. Performed By: #### C DIMA CMP, ####[facility] ([id number])[address] [place] [address] 85535#### 99220-4, 2088-11 ####[facility] ([id number])[address] [place] [address], [address] [place] [address] Glucose [Mass/Vol] 185 mg/dL High 65-99 [facility] Comment on above: Performed By: #### C DIMA, CMP, 53144-2 ####[facility] ([id number])[address] [place] [address] 48586#### 48235-3, 2088-11 ####[facility] ([id number])[address] [place] [address], [address] [place] [address] Potassium [Moles/Vol] 4.1 mmol/L Normal 3.5-5.0 [facility] Comment on above: Performed By: #### Jaimee BCA, CMP, ####[facility] ([id number])[address] [place] [address] 28342#### 36279-8, 2088-11 ####[facility] ([id number])[address] [place] [address], [address] [address] Protein [Mass/Vol] 6.7 g/dL Normal 6.0-8.0 [facility] Comment on above: Performed By: #### C DIMA, CMP, ####[facility] ([id number])[address] [place] [address]#### 37376-9, 2088-11 ####[facility] ([id number])[address] [place] [address], [address] [place] [address] Sodium [Moles/Vol] 133 mmol/L Low 134-146 [facility] Comment on above: Performed By: #### C BCA, CMP, ####[facility] ([id number])[address] [place] [address]#### 96930-0, 2088-11 ####[facility] ([id number])[address] [place] [address], [address] [address] Urea nitrogen [Mass/Vol] 39 mg/dL High 5-23 [facility] Comment on above: Performed By: #### Jaimee CH, [facility], 22907-4 ####[facility] ([id number])[address] [place] [address]#### 86009-1, 2088-11 ####[facility] ([id number])[address] [place] [address], [address] [address] DIRECT LDLon 08-04-2024 Cholesterol in LDL [Mass/Vol] 105 mg/dL Normal <130 [facility] Comment on above: Result Comment: LDL <100 mg/dL - Desirable LDL 130-159 mg/dL - Borderline High Risk LDL >160 mg/dL - High Risk Performed By: #### C DIMA [facility], 89888-2 ####[facility] ([id number])[address] [place] [address]#### 01687-6, 2088-11 ####[facility] ([id number])[address] [place] [address], [address] [address] Glucose Glucometer (BldC) [M ass/Vol]on 08-04-2024 Glucose [Mass/Vol] 221 mg/dL High 65-99 [facility] Glucose [Mass/Vol] 247 mg/dL High 65-99 [facility] Glucose [Mass/Vol] 253 mg/dL High 65-99 [facility] Lipid 1996 panelon Cholesterol [Mass/Vol] 240 mg/dL High 150-200 [facility] Comment on above: Performed By: #### C DIMA, CMP, 85298-9 ####[facility] ([id number])[address] [place] [address]#### 38747-9, 2088-11 ####[facility] ([id number])[address], [address] [place] [address] Cholesterol in HDL [Mass/Vol] 38 mg/dL Low >39 [facility] Comment on above: Result Comment: HDL <40 mg/dL - High Risk HDL > or = 40mg/dL- Desirable HDL >60 mg/dL - Negative Risk Performed By: #### C DIMA, CMP, ####[facility] ([id number])[address] [place] [address]#### 82546-6, 2088-11 ####[facility] ([id number])[address] [facility], [address] [place] [address] Cholesterol in VLDL [Mass/Vol] 156 mg/dL High 0-30 [facility] Comment on above: Performed By: #### C DIMA, CMP, ####[facility] ([id number])[address] [place] [address] 17524#### 92739-0, 2088-11 ####[facility] ([id number])[address] [facility], [address] [place] [address] CHOLESTEROL:HDL 6.3 High 1.0-5.0 [facility] Comment on above: Performed By: #### Jaimee BCA, CMP, ####[facility] ([id number])[address] [place] [address] 01328#### 65225-9, 2088-11 ####[facility] ([id number])[address] [facility], [address] [place] [address] 22879 LDL (CALC) RESULT NOT REPORTED DUE TO HIGH TRIGLYCERIDE Normal <130 [facility] Comment on above: Performed By: #### C BCA, CMP, 51121-3 ####[facility] ([id number])[address] [place] [address] 81036#### 83703-7, 2088-11 ####[facility] ([id number])[address] [facility], [address], [place] [address] Triglyceride [Mass/Vol] 782 mg/dL High 27-150 [facility] Comment on above: Performed By: #### C DIMA, CMP, ####[facility] ([id number])[address] [place] [address] 84130#### 81446-6, 2088-11 ####[facility] ([id number])[address] [facility], [address] [place] [address] 44750 MAGNESIUMon 08-04-2024 Magnesium [Mass/Vol] 2.3 mg/dL Normal 1.8-2.6 [facility] Comment on above: Performed By: #### C DIMA, 76049-1, CMP #### [facility] ([id number]) [address] [place] [address] 55679 #### HA1C #### [facility] ([id number]) [address] [place] [address], [address] [place] [address] Magnesium [Mass/Vol] 1.6 mg/dL Low 1.8-2.6 [facility] Comment on above: Performed By: #### C BCA, CMP, ####[facility] ([id number])[address] [place] [address] 98056#### 89861-6, 2088-11 ####[facility] ([id number])[address] [facility], [address], [place] [address] CBC AND AUTO DIFFon 08-03-20 24 ABSOLUTE BASOPHIL 0.1 X10E9/L Normal 0.0-0.2 [facility] Comment on above: Performed By: #### Jaimee CH, 00094-5, CMP #### [facility] ([id number]) [address] [place] [address] 51978 #### HA1C #### [facility] ([id number]) [address] [facility], [address] [place] [address] ABSOLUTE NEUTROPHIL 4.2 X10E9/L Normal 1.5-6.6 [facility] Comment on above: Performed By: #### Jaimee CH, 94434-7, CMP #### [facility] ([id number]) [address] [place] [address] 42534 #### HA1C #### [facility] ([id number]) [address] [facility], [address] [place] [address] Basophils/100 WBC (Bld) 0.7 % Normal [facility] Comment on above: Performed By: #### Jaimee CH, 22181-3, CMP #### [facility] ([id number]) [address] [place] [address] 01959 #### HA1C #### [facility] ([id number]) [address], [address] [place] [address] Eosinophils (Bld) [#/Vol] 0.1 10*3/uL Normal 0.0-0.4 [facility] Comment on above: Performed By: #### Jaimee CH, 75677-7, CMP #### [facility] ([id number]) [address] [place] [address] 88121 #### HA1C #### [facility] ([id number]) [address], [address] [place] [address] Eosinophils/100 WBC (Bld) 1.9 % Normal [facility] Comment on above: Performed By: #### Jaimee CH, 85667-9, CMP #### [facility] ([id number]) [address] [place] [address] 32265 #### HA1C #### [facility] ([id number]) [address], [address] [place] [address] Erythrocyte distribution width (RBC) [Ratio] 15.1 % High 11.5-15.0 [facility] Comment on above: Performed By: #### Jaimee CH, 51885-2, CMP #### [facility] ([id number]) [address] [place] [address] 73159 #### HALulu #### [facility] ([id number]) [address], [address] [place] [address] Hematocrit (Bld) [Volume fraction] 35.2 % Normal 35-47 [facility] Comment on above: Performed By: #### Jaimee CH, 13672-6, CMP #### [facility] ([id number]) [address] [place] [address] 22822 #### HA1C #### [facility] ([id number]) [address], [address] [place] [address] Hemoglobin (Bld) [Mass/Vol] 11.9 g/dL Normal 11.7-15.5 [facility] Comment on above: Performed By: #### Jaimee CH, 55539-4, CMP #### [facility] ([id number]) [address] [place] [address] 36730 #### HA1C #### [facility] ([id number]) [address], [address] [place] [address] Lymphocytes (Bld) [#/Vol] 2.6 10*3/uL Normal 1.0-3.5 [facility] Comment on above: Performed By: #### Jaimee CH, 32573-0, CMP #### [facility] ([id number]) [address] [place] [address] 13357 #### HA1C #### [facility] ([id number]) [address], [address] [place] [address] Lymphocytes/100 WBC (Bld) 34.7 % Normal [facility] Comment on above: Performed By: #### Jaimee CH, 22593-0, CMP #### [facility] ([id number]) [address] [place] [address] 69528 #### HA1C #### [facility] ([id number]) [address], [address] [place] [address] MCH (RBC) [Entitic mass] 28.8 pg Normal 27-34 [facility] Comment on above: Performed By: #### Jaimee CH, 20655-1, CMP #### [facility] ([id number]) [address] [place] [address] 96220 #### HA1C #### [facility] ([id number]) [address], [address] [place] [address] MCHC (RBC) [Mass/Vol] 33.8 g/dL Normal 32-36 [facility] Comment on above: Performed By: #### Jaimee CH, 98442-8, CMP #### [facility] ([id number]) [address] [place] [address] 89242 #### HA1C #### [facility] ([id number]) [address], [address] [place] [address] MCV (RBC) [Entitic vol] 85 fL Normal 80-100 [facility] Comment on above: Performed By: #### Jaimee CH, 78951-2, CMP #### [facility] ([id number]) [address] [place] [address] 96374 #### HA1C #### [facility] ([id number]) [address], [address] [place] [address] Monocytes (Bld) [#/Vol] 0.5 10*3/uL Normal 0-0.9 [facility] Comment on above: Performed By: #### Jaimee CH, 67741-6, CMP #### [facility] ([id number]) [address] [place] [address] 33300 #### HALulu #### [facility] ([id number]) [address], [address] [place] [address] Monocytes/100 WBC (Bld) 6.3 % Normal [facility] Comment on above: Performed By: #### Jaimee CH, 36508-2, CMP #### [facility] ([id number]) [address] [place] [address] 32860 #### HA1C #### [facility] ([id number]) [address], [address] [place] [address] Neutrophils/100 WBC (Bld) 56.4 % Normal [facility] Comment on above: Performed By: #### Jaimee CH, 18741-2, CMP #### [facility] ([id number]) [address] [place] [address] 56717 #### HA1C #### [facility] ([id number]) [address], [address] [place] [address] Platelet mean volume (Bld) [Entitic vol] 8.4 fL Normal 7-12 [facility] Comment on above: Performed By: #### Jaimee CH, 98747-8, CMP #### [facility] ([id number]) [address] [place] [address] 97242 #### HA1C #### [facility] ([id number]) [address] [place] [address], [address] [place] [address] Platelets (Bld) [#/Vol] 344 10*3/uL Normal 150-450 [facility] Comment on above: Performed By: #### Jaimee CH, 53082-0, CMP #### [facility] ([id number]) [address] [place] [address] 96531 #### ARUN #### [facility] ([id number]) [address] [place] [address], [address] [address] RBC COUNT 4.13 X10E12/L Normal 3.80-5.20 [facility] Comment on above: Performed By: #### Jaimee CH, 49974-9, CMP #### [facility] ([id number]) [address] [place] [address] 10630 #### HALulu #### [facility] ([id number]) [address] [place] [address], [address] [address] WBC (Bld) [#/Vol] 7.5 10*3/uL Normal 4.0-11.0 [facility] Comment on above: Performed By: #### Jaimee CH, 08770-6, CMP #### [facility] ([id number]) [address] [place] [address] 49390 #### HALulu #### [facility] ([id number]) [address] [place] [address], [address] [place] [address] COMPREHENSIVE METABOLIC PANE Chay 08-03-2024 Albumin [Mass/Vol] 3.7 g/dL Normal 3.2-5.3 [facility] Comment on above: Performed By: #### Jaimee CH, 55156-2, CMP #### [facility] ([id number]) [address] [place] [address] 65685 #### HA1C #### [facility] ([id number]) [address] [facility], [address] [place] [address] ALP [Catalytic activity/Vol] 96 U/L Normal 39-130 [facility] Comment on above: Performed By: #### Jaimee CH, 06848-6, CMP #### [facility] ([id number]) [address] [place] [address] 78611 #### HA1C #### [facility] ([id number]) [address] [facility], [address] [place] [address] ALT [Catalytic activity/Vol] 17 U/L Normal 0-31 [facility] Comment on above: Performed By: #### C DIMA, 36328-4, CMP #### [facility] ([id number]) [address] [place] [address] 02115 #### HALulu #### [facility] ([id number]) [address] [facility], [address] [place] [address] Anion gap [Moles/Vol] 11 mmol/L Normal 5-15 [facility] Comment on above: Performed By: #### C DIMA, 23868-3, CMP #### [facility] ([id number]) [address] [place] [address] 83375 #### HA1C #### [facility] ([id number]) [address] [facility], [address] [place] [address] AST [Catalytic activity/Vol] 14 U/L Normal 0-41 [facility] Comment on above: Performed By: #### C BCA, 74170-2, CMP #### [facility] ([id number]) [address] [place] [address] 96131 #### HA1C #### [facility] ([id number]) [address], [address] [place] [address] Bilirubin [Mass/Vol] 0.6 mg/dL Normal 0.3-1.2 [facility] Comment on above: Performed By: #### C DIMA, 49572-9, CMP #### [facility] ([id number]) [address] [place] [address] 00923 #### HA1C #### [facility] ([id number]) [address], [address] [place] [address] Calcium [Mass/Vol] 9.1 mg/dL Normal 8.5-10.5 [facility] Comment on above: Performed By: #### C DIMA, 53250-0, CMP #### [facility] ([id number]) [address] [place] [address] 59068 #### HA1C #### [facility] ([id number]) [address], [address] [place] [address] Chloride [Moles/Vol] 99 mmol/L Normal 98-109 [facility] Comment on above: Performed By: #### C DIMA, 85067-4, CMP #### [facility] ([id number]) [address] [place] [address] 10864 #### HA1C #### [facility] ([id number]) [address], [address] [place] [address] CO2 [Moles/Vol] 20 mmol/L Low 22-32 [facility] Comment on above: Performed By: #### C DIMA, 72217-1, CMP #### [facility] ([id number]) [address] [place] [address] 37529 #### HA1C #### [facility] ([id number]) [address], [address] [place] [address] Creatinine [Mass/Vol] 2.19 mg/dL High 0.40-1.00 [facility] Comment on above: Result Comment: METH OD TRACEABLE TO IDMS STANDARD Performed By: #### C DIMA, 55702-9, CMP #### [facility] ([id number]) [address] [place] [address] 42871 #### HA1C #### [facility] ([id number]) [address], [address] [place] [address] GFR/1.73 sq M.predicted among non-blacks MDRD (S/P/Bld) [Vol rate/Area] 26 mL/min/{1.73_m2} Low >59 [facility] Comment on above: Result Comment: Reported eGFR is based on the CKD-EPI 2020 equation that does not use a race coefficient. Performed By: #### C DIMA, 90171-4, CMP #### [facility] ([id number]) [address] [place] [address] 65991 #### HA1C #### [facility] ([id number]) [address], [address] [address] Glucose [Mass/Vol] 402 mg/dL Critically high 65-99 P [facility] Comment on above: Performed By: #### C DIMA, 34444-8, CMP #### [facility] ([id number]) [address] [place] [address] 59754 #### HA1C #### [facility] ([id number]) [address], [facility] [address] [place] [address] Potassium [Moles/Vol] 4.4 mmol/L Normal 3.5-5.0 [facility] Comment on above: Performed By: #### Jaimee CH, 65796-5, CMP #### [facility] ([id number]) [address] [place] [address] 90417 #### HA1C #### [facility] ([id number]) [address] [facility], [address] [place] [address] Protein [Mass/Vol] 7.7 g/dL Normal 6.0-8.0 [facility] Comment on above: Performed By: #### C BCA, 78768-4, CMP #### [facility] ([id number]) [address] [place] [address] 64476 #### HA1C #### [facility] ([id number]) [address] [facility], [address] [place] [address]909 Sodium [Moles/Vol] 130 mmol/L Low 134-146 [facility] Comment on above: Performed By: #### C BCA, 17126-9, CMP #### [facility] ([id number]) [address] [place] [address] 44543 #### HA1C #### [facility] ([id number]) [address] [facility], [address] [place] [address] Urea nitrogen [Mass/Vol] 44 mg/dL High 5-23 [facility] Comment on above: Performed By: #### C BCA, 27753-9, CMP #### [facility] ([id number]) [address] [place] [address] 24120 #### HA1C #### [facility] ([id number]) [address] [facility], [address] [place] [address] CT BRAIN WO CONT STROKE ALER Ton [...] Contreras MD on 08/03/2024 5:07 PM Normal [facility] CT CTA CAROTIDon 08-03-2024 CT CTA CAROTID [...] Pack MD on 08/03/2024 5:34 PM Normal [facility] CT CTA HEADon 08-03-[address] CTA HEAD CTA HEAD HISTORY: Blurry vision, worst headache of life COMPARISON: 12/25/2021 TECHNIQUE: CT angiogram performed following intravenous administration of 100 mL Omnipaque 350. Coronal and sagittal and 3-D volume rendered maximum intensity projection images generated and reviewed under concurrent physician supervision. The [place] Symptomatic Carotid Endarterectomy Trial (NASCET) method for [...] Contreras MD on 08/03/2024 5:29 PM Normal [facility] Glucose Glucometer (BldC) [M ass/Vol]on 08-03-2024 Glucose [Mass/Vol] 227 mg/dL High 65-99 [facility] Glucose [Mass/Vol] 369 mg/dL High 65-99 [facility] HGB A1C (GLYCO-HGB)on 2023 Glucose [Mass/Vol] 226 mg/dL Normal [facility] Comment on above: Performed By: #### C DIMA, 08695-4, CMP #### [facility] ([id number]) [address] [place] [address] 13269 #### HA1C #### [facility] ([id number]) [address] [facility], [address] [place] [address] HbA1c (Bld) [Mass fraction] 9.5 % High 4.4-5.6 [facility] Comment on above: Result Comment: NOTE ADA Guidelines Result HgbA1c Normal : less than 5.7 % Prediabetes : 5.7 % to 6.4 % Diabetes : > 6.4 % Use with caution in patients with abnormal hemoglobin variants as the half-life of red blood cells and in vivo glycation rates are affected. Performed By: #### C DIMA, 23876-8, CMP #### [facility] ([id number]) [address] [place] [address] 99613 #### HA1C #### [facility] ([id number]) [facility], [address] [place] [address] THYROID PROFILEon 08-03-2024 Free T4 [Mass/Vol] 0.81 ng/dL Normal 0.61-1.60 [facility] Comment on above: Performed By: #### 8 9579-7, THYR ####[facility] ([id number])[address] [place] [address] TSH 3.32 uIU/mL Normal 0.49-4.67 [facility] Comment on above: Performed By: #### 8 9579-7, THYR ####[facility] ([id number])[address] [place] [address]956 Troponin I.cardiac High sens itivity method [Mass/Vol]on 08-03-2024 1 HOUR TROP I, HIGH SENSITIVITY 3 ng/L Normal <16 [facility] Comment on above: Performed By: #### 8 9579-7, THYR #### [facility] ([id number]) [address] [place] [address] TROPONIN I, HIGH SENSITIVITY 4 ng/L Normal <16 [facility] Comment on above: Performed By: #### C BCA, 27163-1, CMP #### [facility] ([id number]) [address] [place] [address] 78124 #### HA1C #### [facility] ([id number]) [address] [place] [address], [address] [place] [address] URINALYSISon 08-03-2024 Bilirubin Ql (U) Negative Normal NEG [facility] Comment on above: Performed By: #### U A ####[facility] ([id number])[address] [place] [address] BLOOD/HGB Negative Normal NEG [facility] Comment on above: Performed By: #### U A ####[facility] ([id number])[address] [place] [address] 95440 Color (U) YELLOW Normal YELLOW [facility] Comment on above: Performed By: #### U A ####[facility] ([id number])[address] [place] [address]2287 Glucose Ql (U) 500 mg/dL Abnormal NEG [facility] Comment on above: Performed By: #### U A ####[facility] ([id number])[address] [place] [address] Ketones Ql (U) Negative Normal NEG [facility] Comment on above: Performed By: #### U A ####[facility] ([id number])[address] [place] [address] 81196 Leukocyte esterase Test strip Ql (U) Trace Abnormal NEG [facility] Comment on above: Performed By: #### U A ####[facility] ([id number])[address] [place] [address] 08209 Nitrite Ql (U) Negative Normal NEG [facility] Comment on above: Performed By: #### U A ####[facility] ([id number])[address] [place] [address] 65858 pH (U) 6.0 [pH] Normal 5.0-8.5 [facility] Comment on above: Performed By: #### U A ####[facility] ([id number])[address] [place] [address] 24939 Protein Ql (U) Negative Normal NEG [facility] Comment on above: Performed By: #### U A ####[facility] ([id number])[address] [place] [address] 75803 R.B.CELLS 1 /hpf Normal 0-5 [facility] Comment on above: Performed By: #### U A ####[facility] ([id number])[address] [place] [address] 61708 Specific gravity (U) [Rel density] 1.010 Normal 1.003-1.035 [facility] Comment on above: Performed By: #### U A ####[facility] ([id number])[address] [place] [address]2332 SQUAMOUS EPITHELIUM 3 /hpf Normal 0-5 [facility] Comment on above: Performed By: #### U A ####[facility] ([id number])[address] [place] [address] [place] [address] TURBIDITY CLEAR Normal CLEAR [facility] Comment on above: Performed By: #### U A ####[facility] ([id number])[address] [place] [address] [place] [address] Urobilinogen Qn (U) 0.2 {Juanita'U}/dL Normal <1.1 [facility] Comment on above: Performed By: #### U A ####[facility] ([id number])[address] [place] [address] 04507 W.B.CELLS 4 /hpf Normal 0-5 [facility] Comment on above: Performed By: #### U A ####[facility] ([id number])[address] [place] [address]370 URN MACROSCOPIC NURon 2023 BILIRUBIN LE Negative Normal NEG [facility] Comment on above: Performed By: #### N UM #### [facility] ([id number]) [address] [place] [address] 10426 BLOOD/HGB LE Negative Normal NEG [facility] Comment on above: Performed By: #### N UM #### [facility] ([id number]) [address] [place] [address] 76973 GLUCOSE LE 500 mg/dL Abnormal NEG [facility] Comment on above: Performed By: #### N UM #### [facility] ([id number]) [address] [place] [address] 37746 KETONES LE Negative Normal NEG [facility] Comment on above: Performed By: #### N UM #### [facility] ([id number]) [address] [place] [address] [place] [address] LEUKOCYTE ESTERASE LE Small Abnormal NEG [facility] Comment on above: Performed By: #### N UM #### [facility] ([id number]) [address] [place] [address] 78992 NITRITE LE Negative Normal NEG [facility] Comment on above: Performed By: #### N UM #### [facility] ([id number]) [address] [place] [address] 32136 PH LE 5.5 Normal 5.0-8.5 [facility] Comment on above: Performed By: #### N UM #### [facility] ([id number]) [address] [place] [id number] PROTEIN LE Negative Normal NEG [facility] Comment on above: Performed By: #### N UM #### [facility] ([id number]) [address] [place] [id number] SPECIFIC GRAVITY LE 1.010 Normal 1.003-1.035 [facility] Comment on above: Performed By: #### N UM #### [facility] ([id number]) [address] [place] [id number] UROBILINOGEN LE 0.2 eu/dL Normal <1.1 [facility] Comment on above: Performed By: #### N UM #### [facility] ([id number]) [address] [place] [address] [id number] PTH INTACTon 03-11-2023 PTH, Intact 31 pg/mL Normal 15-65 [facility] Comment on above: Performed By: #### U MICRO, ERUR #### [facility] [address] [place] [address] Dr. Delmer Rea FERRITINon 03-10-2023 Ferritin [Mass/Vol] 35.0 ng/mL Normal 8.0-252.0 [facility] Comment on above: Performed By: #### L IPA, DLDL, CON, LIPID, T7, CMP, TSH #### [facility] [address] [address] [address] Delmer Rea HEMOGRAM AND PLATELon 2022 Hematocrit (Bld) [Volume fraction] 35.5 % Critically low 36.0-48.0 [facility] Comment on above: Performed By: #### L IPA, DLDL, CON, LIPID, T7, CMP, TSH #### [facility] [address] [address] [address] Delmer Rea Hemoglobin (Bld) [Mass/Vol] 11.6 g/dL Critically low 12.0-16.0 [facility] Comment on above: Performed By: #### L IPA, DLDL, CON, LIPID, T7, CMP, TSH #### [facility] [address] [place] [address] Dr. Delmer Rea MCH (RBC) [Entitic mass] 27.3 pg Normal 26.7-34.0 [facility] Comment on above: Performed By: #### L IPA, DLDL, CON, LIPID, T7, CMP, TSH #### [facility] [address] [place] [address] Dr. Delmer Rea MCHC (RBC) [Mass/Vol] 32.7 g/dL Normal 29.9-35.2 [facility] Comment on above: Performed By: #### L IPA, DLDL, CON, LIPID, T7, CMP, TSH #### [facility] [address] [place] [address] Dr. Delmer Rea MCV (RBC) [Entitic vol] 83.5 fL Normal 81.0-99.0 [facility] Comment on above: Performed By: #### L IPA, DLDL, CON, LIPID, T7, CMP, TSH #### [facility] [address] [place] [address] Dr. Delmer Rea PLT 273 103/ul Normal 150-450 [facility] Comment on above: Performed By: #### L IPA, DLDL, CON, LIPID, T7, CMP, TSH #### [facility] [address] [place] [address] Dr. Delmer Rea RBC 4.25 106/ul Normal 4.20-5.40 [facility] Comment on above: Performed By: #### L IPA, DLDL, CON, LIPID, T7, CMP, TSH #### [facility] [address] [place] [address] Dr. Delmer Rea WBC 5.5 103/ul Normal 4.0-11.0 [facility] Comment on above: Performed By: #### L IPA, DLDL, CON, LIPID, T7, CMP, TSH #### [facility] [address] [address] [address] Delmer Rea IRON AND TIBCon 03-10-2023 % SATURATION 13.6 % Normal [facility] Comment on above: Performed By: #### L IPA, DLDL, CON, LIPID, T7, CMP, TSH #### [facility] [address] [address] [address] Delmer Rea Iron [Mass/Vol] 61.0 ug/dL Normal 50.0-170.0 [facility] Comment on above: Performed By: #### L IPA, DLDL, CON, LIPID, T7, CMP, TSH #### [facility] [address] [place] [address] Dr. Delmer Rea TIBC DIRECT 447.0 ug/dL Normal 250.0-450.0 [facility] Comment on above: Performed By: #### L IPA, DLDL, CON, LIPID, T7, CMP, TSH #### [facility] [address] [place] [address] Dr. Delmer Rea MAGNESIUMon 03-10-2023 Magnesium [Mass/Vol] 1.7 mg/dL Critically low 1.8-2.4 [facility] Comment on above: Performed By: #### L IPA, DLDL, CON, LIPID, T7, CMP, TSH #### [facility] [address] [place] [address] Dr. Delmer Rea PHOSPHORUSon 03-10-2023 Phosphate [Mass/Vol] 4.9 mg/dL Critically high 2.6-4.7 [facility] Comment on above: Performed By: #### L IPA, DLDL, CON, LIPID, T7, CMP, TSH #### [facility] [address] [place] [address] Dr. Delmer Rea PROF 14(COMP METB)on 023 Albumin [Mass/Vol] 3.4 g/dL Normal 3.4-5.0 [facility] Comment on above: Performed By: #### L IPA, DLDL, CON, LIPID, T7, CMP, TSH #### [facility] [address] [place] [address] Dr. Delmer Rea Albumin/Globulin [Mass ratio] 0.8 {ratio} Normal [facility] Comment on above: Performed By: #### L IPA, DLDL, CON, LIPID, T7, CMP, TSH #### [facility] [address] [place] [address] Dr. Delmer Rea ALP [Catalytic activity/Vol] 102 U/L Normal 46-116 [facility] Comment on above: Performed By: #### L IPA, DLDL, CON, LIPID, T7, CMP, TSH #### [facility] [address] [place] [address] Dr. Delmer Rea ALT [Catalytic activity/Vol] 28 U/L Normal 14-59 [facility] Comment on above: Performed By: #### L IPA, DLDL, CON, LIPID, T7, CMP, TSH #### [facility] [address] [place] [address] Dr. Delmer Rea Anion gap [Moles/Vol] 15.1 mmol/L Normal [facility] Comment on above: Performed By: #### L IPA, DLDL, CON, LIPID, T7, CMP, TSH #### [facility] [address] [place] [address] Dr. Delmer Rea AST [Catalytic activity/Vol] 16 U/L Normal 15-37 [facility] Comment on above: Performed By: #### L IPA, DLDL, CON, LIPID, T7, CMP, TSH #### [facility] [address] [place] [address] Dr. Delmer Rea Bilirubin [Mass/Vol] 0.5 mg/dL Normal 0.2-1.0 [facility] Comment on above: Performed By: #### L IPA, DLDL, CON, LIPID, T7, CMP, TSH #### [facility] [address] [place] [address] Dr. Delmer Rea Calcium [Mass/Vol] 9.5 mg/dL Normal 8.5-10.1 [facility] Comment on above: Performed By: #### L IPA, DLDL, CON, LIPID, T7, CMP, TSH #### [facility] [address] [address] [address] Delmer Rea Chloride [Moles/Vol] 100 mmol/L Normal 98-107 [facility] Comment on above: Performed By: #### L IPA, DLDL, CON, LIPID, T7, CMP, TSH #### [facility] [address] [address] [address] Delmer Rea CO2 [Moles/Vol] 23.4 mmol/L Normal 21.0-32.0 [facility] Comment on above: Performed By: #### L IPA, DLDL, CON, LIPID, T7, CMP, TSH #### [facility] [address] [place] [address] Dr. Delmer Rea Creatinine [Mass/Vol] 1.86 mg/dL Critically high 0.55-1.02 [facility] Comment on above: Performed By: #### L IPA, DLDL, CON, LIPID, T7, CMP, TSH #### [facility] [address] [place] [address] Dr. Delmer Rea EGFR-AF NEPALESE 35 mL/min/1.73m2 Critically low >=60 [facility] Comment on above: Performed By: #### L IPA, DLDL, CON, LIPID, T7, CMP, TSH #### [facility] [address] [place] [address] Dr. Delmer Rea EGFR-NON AF NEPALESE 29 mL/min/1.73m2 Critically low >=60 [facility] Comment on above: Performed By: #### L IPA, DLDL, CON, LIPID, T7, CMP, TSH #### [facility] [address] [place] [address] Dr. Delmer Rea Globulin (S) [Mass/Vol] 4.3 g/dL Normal [facility] Comment on above: Performed By: #### L IPA, DLDL, CON, LIPID, T7, CMP, TSH #### [facility] [address] [place] [address] Dr. Delmer Rea Glucose [Mass/Vol] 197 mg/dL Critically high 74-106 [facility] Comment on above: Performed By: #### L IPA, DLDL, CON, LIPID, T7, CMP, TSH #### [facility] [address] [place] [address] Dr. Delmer Rea Potassium [Moles/Vol] 4.5 mmol/L Normal 3.5-5.1 [facility] Comment on above: Performed By: #### L IPA, DLDL, CON, LIPID, T7, CMP, TSH #### [facility] [address] [place] [address] Dr. Delmer Rea Protein [Mass/Vol] 7.7 g/dL Normal 6.4-8.2 [facility] Comment on above: Performed By: #### L IPA, DLDL, CON, LIPID, T7, CMP, TSH #### [facility] [address] [place] [address] Dr. Delmer Rea Sodium [Moles/Vol] 134 mmol/L Critically low 136-145 [facility] Comment on above: Performed By: #### L IPA, DLDL, CON, LIPID, T7, CMP, TSH #### [facility] [address] [place] [address] Dr. Delmer Rea Urea nitrogen [Mass/Vol] 40.0 mg/dL Critically high 7.0-18.0 [facility] Comment on above: Performed By: #### L IPA, DLDL, CON, LIPID, T7, CMP, TSH #### [facility] [address] [place] [address] Dr. Delmer Rea Urea nitrogen/Creatinine [Mass ratio] 21.5 mg/mg Normal [facility] Comment on above: Performed By: #### L IPA, DLDL, CON, LIPID, T7, CMP, TSH #### [facility] [address] [place] [address] Dr. Delmer Rea URIC ACID SERUMon 03-10-2023 Urate [Mass/Vol] 7.1 mg/dL Critically high 2.6-6.0 [facility] Comment on above: Performed By: #### L IPA, DLDL, CON, LIPID, T7, CMP, TSH #### [facility] [address] [place] [address] Dr. Delmer Rea VIT B12 AND FOLATEon 023 Cobalamin (Vitamin B12) [Mass/Vol] 369.0 pg/mL Normal 193.0-986.0 [facility] Comment on above: Performed By: #### L IPA, DLDL, CON, LIPID, T7, CMP, TSH #### [facility] [address] [place] [address] Dr. Delmer Rea FOLATE 20.30 ng/mL Normal 8.60-58.90 [facility] Comment on above: Performed By: #### L IPA, DLDL, CON, LIPID, T7, CMP, TSH #### [facility] [address] [place] [address] Dr. Delmer Rea VITAMIN D 25 OHon 03-10-2023 VIT D 25-OH 13.0 ng/mL Normal [facility] Comment on above: Performed By: #### L IPA, DLDL, CON, LIPID, T7, CMP, TSH #### [facility] [address] [place] [address] Dr. Delmer Rea VIT D RANGES SEE BELOW Normal [facility] Comment on above: Result Comment: <20 ng/mL Vit D deficient 20 - <30 ng/mL Vit D insufficient 30 - 100 ng/mL Vit D sufficient >100 ng/mL Potential Toxicity Performed By: #### L IPA, DLDL, CON, LIPID, T7, CMP, TSH #### [facility] [address] [place] [address] Dr. Delmer Rea PROF 14(COMP METB)on 023 Albumin [Mass/Vol] 3.4 g/dL Normal 3.4-5.0 [facility] Comment on above: Performed By: #### L IPA, DLDL, CON, LIPID, T7, CMP, TSH #### [facility] [address] [place] [address] Dr. Delmer Rea Albumin/Globulin [Mass ratio] 0.9 {ratio} Normal [facility] Comment on above: Performed By: #### L IPA, DLDL, CON, LIPID, T7, CMP, TSH #### [facility] [address] [address] [address] Delmer Rea ALP [Catalytic activity/Vol] 95 U/L Normal 46-116 [facility] Comment on above: Performed By: #### L IPA, DLDL, CON, LIPID, T7, CMP, TSH #### [facility] [address] [address] [address] Delmer Rea ALT [Catalytic activity/Vol] 23 U/L Normal 14-59 [facility] Comment on above: Performed By: #### L IPA, DLDL, CON, LIPID, T7, CMP, TSH #### [facility] [address] [address] [address] Delmer Rea Anion gap [Moles/Vol] 15.2 mmol/L Normal [facility] Comment on above: Performed By: #### L IPA, DLDL, CON, LIPID, T7, CMP, TSH #### [facility] [address] [address] [address] Delmer Rea AST [Catalytic activity/Vol] 8 U/L Critically low 15-37 [facility] Comment on above: Performed By: #### L IPA, DLDL, CON, LIPID, T7, CMP, TSH #### [facility] [address] [address] [address] Delmer Rea Bilirubin [Mass/Vol] 0.3 mg/dL Normal 0.2-1.0 [facility] Comment on above: Performed By: #### L IPA, DLDL, CON, LIPID, T7, CMP, TSH #### [facility] [address] [place] [address] Dr. Delmer Rea Calcium [Mass/Vol] 9.2 mg/dL Normal 8.5-10.1 [facility] Comment on above: Performed By: #### L IPA, DLDL, CON, LIPID, T7, CMP, TSH #### [facility] [address] [place] [address] Dr. Delmer Rea Chloride [Moles/Vol] 102 mmol/L Normal 98-107 [facility] Comment on above: Performed By: #### L IPA, DLDL, CON, LIPID, T7, CMP, TSH #### [facility] [address] [place] [address] Dr. Delmer Rea CO2 [Moles/Vol] 22.6 mmol/L Normal 21.0-32.0 [facility] Comment on above: Performed By: #### L IPA, DLDL, CON, LIPID, T7, CMP, TSH #### [facility] [address] [address] [address] Delmer Rea Creatinine [Mass/Vol] 1.89 mg/dL Critically high 0.55-1.02 [facility] Comment on above: Performed By: #### L IPA, DLDL, CON, LIPID, T7, CMP, TSH #### [facility] [address] [place] [address] Dr. Delmer Rea EGFR-AF NEPALESE 34 mL/min/1.73m2 Critically low >=60 [facility] Comment on above: Performed By: #### L IPA, DLDL, CON, LIPID, T7, CMP, TSH #### [facility] [address] [place] [address] Dr. Delmer Rea EGFR-NON AF NEPALESE 28 mL/min/1.73m2 Critically low >=60 [facility] Comment on above: Performed By: #### L IPA, DLDL, CON, LIPID, T7, CMP, TSH #### [facility] [address] [place] [address] Dr. Delmer Rea Globulin (S) [Mass/Vol] 3.9 g/dL Normal [facility] Comment on above: Performed By: #### L IPA, DLDL, CON, LIPID, T7, CMP, TSH #### [facility] [address] [place] [address] Dr. Delmer Rea Glucose [Mass/Vol] 257 mg/dL Critically high 74-106 [facility] Comment on above: Performed By: #### L IPA, DLDL, CON, LIPID, T7, CMP, TSH #### [facility] [address] [place] [address] Dr. Delmer Rea Potassium [Moles/Vol] 4.8 mmol/L Normal 3.5-5.1 [facility] Comment on above: Performed By: #### L IPA, DLDL, CON, LIPID, T7, CMP, TSH #### [facility] [address] [place] [address] Dr. Delmer Rea Protein [Mass/Vol] 7.3 g/dL Normal 6.4-8.2 [facility] Comment on above: Performed By: #### L IPA, DLDL, CON, LIPID, T7, CMP, TSH #### [facility] [address] [place] [address] Dr. Delmer Rea Sodium [Moles/Vol] 135 mmol/L Critically low 136-145 [facility] Comment on above: Performed By: #### L IPA, DLDL, CON, LIPID, T7, CMP, TSH #### [facility] [address] [place] [address] Dr. Delmer Rea Urea nitrogen [Mass/Vol] 39.0 mg/dL Critically high 7.0-18.0 [facility] Comment on above: Performed By: #### L IPA, DLDL, CON, LIPID, T7, CMP, TSH #### [facility] [address] [place] [address] Dr. Delmer Rea Urea nitrogen/Creatinine [Mass ratio] 20.6 mg/mg Normal [facility] Comment on above: Performed By: #### L IPA, DLDL, CON, LIPID, T7, CMP, TSH #### [facility] [address] [place] [address] Dr. Delmer Rea PROF 14(COMP METB)on 023 Albumin [Mass/Vol] 3.5 g/dL Normal 3.4-5.0 [facility] Comment on above: Performed By: #### U MICRO, ERUR #### [facility] [address] [place] [address] Dr. Delmer Rea Albumin/Globulin [Mass ratio] 0.8 {ratio} Normal [facility] Comment on above: Performed By: #### U MICRO, ERUR #### [facility] [address] [place] [address] Dr. Delmer Rea ALP [Catalytic activity/Vol] 113 U/L Normal 46-116 [facility] Comment on above: Performed By: #### U MICRO, ERUR #### [facility] [address] [address] [address] Delmer Rea ALT [Catalytic activity/Vol] 23 U/L Normal 14-59 [facility] Comment on above: Performed By: #### U MICRO, ERUR #### [facility] [address] [address] [address] Delmer Rea Anion gap [Moles/Vol] 15.5 mmol/L Normal [facility] Comment on above: Performed By: #### U MICRO, ERUR #### [facility] [address] [place] [address] Dr. Delmer Rea AST [Catalytic activity/Vol] 15 U/L Normal 15-37 [facility] Comment on above: Performed By: #### U MICRO, ERUR #### [facility] [address] [place] [address] Dr. Delmer Rea Bilirubin [Mass/Vol] 0.3 mg/dL Normal 0.2-1.0 [facility] Comment on above: Performed By: #### U MICRO, ERUR #### [facility] [address] [place] [address] Dr. Delmer Rea Calcium [Mass/Vol] 9.5 mg/dL Normal 8.5-10.1 [facility] Comment on above: Performed By: #### U MICRO, ERUR #### [facility] [address] [place] [address] Dr. Delmer Rea Chloride [Moles/Vol] 104 mmol/L Normal 98-107 [facility] Comment on above: Performed By: #### U MICRO, ERUR #### [facility] [address] [place] [address] Dr. Delmer Rea CO2 [Moles/Vol] 25.1 mmol/L Normal 21.0-32.0 [facility] Comment on above: Performed By: #### U MICRO, ERUR #### [facility] [address] [address] [address] Delmer Rea Creatinine [Mass/Vol] 1.29 mg/dL Critically high 0.55-1.02 [facility] Comment on above: Performed By: #### U MICRO, ERUR #### [facility] [address] [address] [address] Delmer Rea EGFR-AF NEPALESE 53 mL/min/1.73m2 Critically low >=60 [facility] Comment on above: Performed By: #### U MICRO, ERUR #### [facility] [address] [address] [address] Delmer Rea EGFR-NON AF NEPALESE 44 mL/min/1.73m2 Critically low >=60 [facility] Comment on above: Performed By: #### U MICRO, ERUR #### [facility] [address] [address] [address] Delmer Rea Globulin (S) [Mass/Vol] 4.2 g/dL Normal [facility] Comment on above: Performed By: #### U MICRO, ERUR #### [facility] [address] [address] [address] Delmer Rea Glucose [Mass/Vol] 135 mg/dL Critically high 74-106 [facility] Comment on above: Performed By: #### U MICRO, ERUR #### [facility] [address] [address] [address] Delmer Rea Potassium [Moles/Vol] 4.6 mmol/L Normal 3.5-5.1 [facility] Comment on above: Performed By: #### U MICRO, ERUR #### [facility] [address] [address] [address] Delmer Rea Protein [Mass/Vol] 7.7 g/dL Normal 6.4-8.2 [facility] Comment on above: Performed By: #### U MICRO, ERUR #### [facility] [address] [address] [address] Delmer Rea Sodium [Moles/Vol] 140 mmol/L Normal 136-145 [facility] Comment on above: Performed By: #### U MICRO, ERUR #### [facility] [address] [place] [address] Dr. Delmer Rea Urea nitrogen [Mass/Vol] 28.0 mg/dL Critically high 7.0-18.0 [facility] Comment on above: Performed By: #### U MICRO, ERUR #### [facility] [address] [place] [address] Dr. Delmer Rea Urea nitrogen/Creatinine [Mass ratio] 21.7 mg/mg Normal [facility] Comment on above: Performed By: #### U MICRO, ERUR #### [facility] [address] [place] [address] Dr. Delmer Rea H PYLORI ANTIBODY IGGon 11-07 H. PYLORI IGG ABS 4.50 Index Value Critically high 0.00-0. 79 [facility] Comment on above: Result Comment: Nega tive <0.80 Equivocal 0.80 - 0.89 Positive >0.89 Performed By: #### L IPA, DLDL, CON, LIPID, T7, CMP, TSH #### [facility] [address] [place] [address] Dr. Delmer Rea AMYLASEon 11-25-2022 Amylase [Catalytic activity/Vol] 42 U/L Normal 25-115 [facility] Comment on above: Performed By: #### L IPA, DLDL, CON, LIPID, T7, CMP, TSH #### [facility] [address] [place] [address] Dr. Delmer Rea CBC AUTO DIFFon 11-25-2022 BASO # 0.0 103/ul Normal 0.0-0.1 [facility] Comment on above: Performed By: #### U MICRO, ERUR #### [facility] [address] [place] [address] Dr. Delmer Rea Basophils/100 WBC (Bld) 0.6 % Normal 0.2-2.0 [facility] Comment on above: Performed By: #### U MICRO, ERUR #### [facility] [address] [place] [address] Dr. Delmer Rea EO # 0.2 103/ul Normal 0.0-0.7 [facility] Comment on above: Performed By: #### U MICRO, ERUR #### [facility] [address] [address] [address] Delemr Rea Eosinophils/100 WBC (Bld) 3.2 % Normal 0.9-7.0 [facility] Comment on above: Performed By: #### U MICRO, ERUR #### [facility] [address] [place] [address] Dr. Delmer Rea Erythrocyte distribution width (RBC) [Ratio] 13.5 % Normal 11.0-15.0 [facility] Comment on above: Performed By: #### U MICRO, ERUR #### [facility] [address] [place] [address] Dr. Delmer Rea Hematocrit (Bld) [Volume fraction] 28.6 % Critically low 36.0-48.0 [facility] Comment on above: Performed By: #### U MICRO, ERUR #### [facility] [address] [place] [address] Dr. Delmer Rea Hemoglobin (Bld) [Mass/Vol] 10.4 g/dL Critically low 12.0-16.0 [facility] Comment on above: Performed By: #### U MICRO, ERUR #### [facility] [address] [place] [address] Dr. Delmer Rea IG # 0.06 10e3/ul Critically high 0.00-0.03 [facility] Comment on above: Performed By: #### U MICRO, ERUR #### [facility] [address] [place] [address] Dr. Delmer Rea IG % 0.9 % Critically high 0.0-0.5 [facility] Comment on above: Performed By: #### U MICRO, ERUR #### [facility] [address] [place] [address] Dr. Delmer Rea LYMPH # 2.2 103/ul Normal 1.2-3.8 [facility] Comment on above: Performed By: #### U MICRO, ERUR #### [facility] [address] [place] [address] Dr. Delmer Rea Lymphocytes/100 WBC (Bld) 32.2 % Normal 20.5-60.0 [facility] Comment on above: Performed By: #### U MICRO, ERUR #### [facility] [address] [place] [address] Dr. Delmer Rea MANUAL DIFF REQ NO Normal [facility] Comment on above: Performed By: #### U MICRO, ERUR #### [facility] [address] [place] [address] Dr. Delmer Rea MCH (RBC) [Entitic mass] 27.6 pg Normal 26.7-34.0 [facility] Comment on above: Performed By: #### U MICRO, ERUR #### [facility] [address] [place] [address] Dr. Delmer Rea MCHC (RBC) [Mass/Vol] 36.4 g/dL Critically high 29.9-35.2 [facility] Comment on above: Performed By: #### U MICRO, ERUR #### [facility] [address] [place] [address] Dr. Delmer Rea MCV (RBC) [Entitic vol] 75.9 fL Critically low 81.0-99.0 [facility] Comment on above: Performed By: #### U MICRO, ERUR #### [facility] [address] [place] [address] Dr. Delmer Rea MONO # 0.7 103/ul Normal 0.3-0.8 [facility] Comment on above: Performed By: #### U MICRO, ERUR #### [facility] [address] [place] [address] Dr. Delmer Rea Monocytes/100 WBC (Bld) 9.4 % Normal 1.7-12.0 [facility] Comment on above: Performed By: #### U MICRO, ERUR #### [facility] [address] [place] [address] Dr. Delmer Rea NEUT # 3.7 103/ul Normal 1.4-6.5 [facility] Comment on above: Performed By: #### U MICRO, ERUR #### [facility] [address] [address] [address] Delmer Rea Neutrophils/100 WBC (Bld) 53.7 % Normal 43.0-75.0 [facility] Comment on above: Performed By: #### U MICRO, ERUR #### [facility] [address] [place] [address] Dr. Delmer Rea Platelet mean volume (Bld) [Entitic vol] 9.4 fL Critically low 9.5-13.5 [facility] Comment on above: Performed By: #### U MICRO, ERUR #### [facility] [address] [address] [address] Delmer Rea PLT 313 103/ul Normal 150-450 [facility] Comment on above: Performed By: #### U MICRO, ERUR #### [facility] [address] [place] [address] Dr. Delmer Rea RBC 3.77 106/ul Critically low 4.20-5.40 [facility] Comment on above: Performed By: #### U MICRO, ERUR #### [facility] [address] [address] [address] Delmer Rea WBC 6.9 103/ul Normal 4.0-11.0 [facility] Comment on above: Performed By: #### U MICRO, ERUR #### [facility] [address] [place] [address] Dr. Delmer Rea DIRECT LDLon 11-25-2022 Cholesterol in LDL [Mass/Vol] 102 mg/dL Normal [facility] Comment on above: Performed By: #### L IPA, DLDL, CON, LIPID, T7, CMP, TSH #### [facility] [address] [place] [address] Dr. Delmer Rea DLDL NORMAL SEE BELOW Normal [facility] Comment on above: Result Comment: <100 mg/dl OPTIMAL 100 - 129 mg/dl NEAR OR ABOVE OPTIMAL 130 - 159 mg/dl BORDERLINE HIGH 160 - 189 mg/dl HIGH >190 mg/dl VERY HIGH Performed By: #### L IPA, DLDL, CON, LIPID, T7, CMP, TSH #### [facility] [address] [place], [place] [id number] Dr. eDlmer Rea FREE THYROXINE INDEX T7on FTI 4.31 Normal 1.30-4.50 [facility] Comment on above: Performed By: #### L IPA, DLDL, CON, LIPID, T7, CMP, TSH #### [facility] [address] [place] [address] Dr. Delmer Rea T3U 35.0 % Normal 30.0-39.0 [facility] Comment on above: Performed By: #### L IPA, DLDL, CON, LIPID, T7, CMP, TSH #### [facility] [address] [place] [address] Dr. Delmer Rea T4 [Mass/Vol] 12.30 ug/dL Normal 4.80-13.90 [facility] Comment on above: Performed By: #### L IPA, DLDL, CON, LIPID, T7, CMP, TSH #### [facility] [address] [place] [address] Dr. Delmer Rea GLYCOHEMOGLOBIN A1Con 2022 ADA RECOMMENDATION SEE BELOW Normal [facility] Comment on above: Result Comment: ADA RECOMMENDED LIMIT 4.0 - 6.0 ADA THERAPEUTIC TARGET < 7.0 ACTION SUGGESTED > 7.0 Performed By: #### U MICRO, ERUR #### [facility] [address] [place] [address] Dr. Delmer Rea Glucose [Mass/Vol] 180 mg/dL Normal [facility] Comment on above: Performed By: #### U MICRO, ERUR #### [facility] [address] [place] [address] Dr. Delmer Rea HbA1c (Bld) [Mass fraction] 7.9 % Critically high 4.5-6.2 [facility] Comment on above: Performed By: #### U MICRO, ERUR #### [facility] [address] [place] [address] Dr. Delmer Rea IRONon 11-25-2022 Iron [Mass/Vol] 35.0 ug/dL Critically low 50.0-170.0 [facility] Comment on above: Performed By: #### L IPA, DLDL, CON, LIPID, T7, CMP, TSH #### [facility] [address] [place] [address] Dr. Delmer Rea LIPASEon 11-25-2022 Lipase [Catalytic activity/Vol] 155.0 U/L Normal 73.0-393.0 [facility] Comment on above: Performed By: #### L IPA, DLDL, CON, LIPID, T7, CMP, TSH #### [facility] [address] [place] [address] Dr. Delmer Rea LIPID PROFILEon 11-25-2022 CHOL-HDL RATIO NORM SEE BELOW Normal [facility] Comment on above: Result Comment: 3.3 - 4.4 LOW RISK 4.4 - 7.1 AVERAGE RISK 7.1 - 11.0 MODERATE RISK >11.0 HIGH RISK Performed By: #### L IPA, DLDL, CON, LIPID, T7, CMP, TSH #### [facility] [address] [place] [address] Dr. Delmer Rea Cholesterol [Mass/Vol] 238 mg/dL Critically high <=200 [facility] Comment on above: Performed By: #### L IPA, DLDL, CON, LIPID, T7, CMP, TSH #### [facility] [address] [place] [address] Dr. Delmer Rea Cholesterol in HDL [Mass/Vol] 39 mg/dL Critically low 40-60 [facility] Comment on above: Performed By: #### L IPA, DLDL, CON, LIPID, T7, CMP, TSH #### [facility] [address] [place] [address] Dr. Delmer Rea Cholesterol.total/Ch olesterol in HDL [Mass ratio] 6.1 {ratio} Normal [facility] Comment on above: Performed By: #### L IPA, DLDL, CON, LIPID, T7, CMP, TSH #### [facility] [address] [place] [address] Dr. Delmer Rea HDL NORMAL > or = 60 mg/dl - LO W CARDIOVASCULAR RISK <40 mg/dl - HIGH CARDIOVASCULAR RISK Normal [facility] Comment on above: Performed By: #### L IPA, DLDL, CON, LIPID, T7, CMP, TSH #### [facility] [address] [address] [address] Delmer Rea LDL CALC NORMAL SEE BELOW Normal [facility] Comment on above: Result Comment: <100 mg/dl OPTIMAL 100 - 129 mg/dl NEAR OR ABOVE OPTIMAL 130 - 159 mg/dl BORDERLINE HIGH 160 - 189 mg/dl HIGH >190 mg/dl VERY HIGH Performed By: #### L IPA, DLDL, CON, LIPID, T7, CMP, TSH #### [facility] [address] [address] [address] Delmer Rea Triglyceride [Mass/Vol] 579 mg/dL Critically high <=150 [facility] Comment on above: Performed By: #### L IPA, DLDL, CON, LIPID, T7, CMP, TSH #### [facility] [address] [address] [address] Delmer Rea VLDL CALC 115.8 mg/dL Normal [facility] Comment on above: Performed By: #### L IPA, DLDL, CON, LIPID, T7, CMP, TSH #### [facility] [address] [address] [address] Delmer Rea PROF 14(COMP METB)on 023 Albumin [Mass/Vol] 3.5 g/dL Normal 3.4-5.0 [facility] Comment on above: Performed By: #### L IPA, DLDL, CON, LIPID, T7, CMP, TSH #### [facility] [address] [address] [address] Delmer Rea Albumin/Globulin [Mass ratio] 0.8 {ratio} Normal [facility] Comment on above: Performed By: #### L IPA, DLDL, CON, LIPID, T7, CMP, TSH #### [facility] [address] [place] [address] Dr. Delmer Rea ALP [Catalytic activity/Vol] 110 U/L Normal 46-116 [facility] Comment on above: Performed By: #### L IPA, DLDL, CON, LIPID, T7, CMP, TSH #### [facility] [address] [address] [address] Delmer Rea ALT [Catalytic activity/Vol] 19 U/L Normal 14-59 [facility] Comment on above: Performed By: #### L IPA, DLDL, CON, LIPID, T7, CMP, TSH #### [facility] [address] [address] [address] Delmer Rea Anion gap [Moles/Vol] 17.0 mmol/L Normal [facility] Comment on above: Performed By: #### L IPA, DLDL, CON, LIPID, T7, CMP, TSH #### [facility] [address] [address] [address] Delmer Rea AST [Catalytic activity/Vol] 13 U/L Critically low 15-37 [facility] Comment on above: Performed By: #### L IPA, DLDL, CON, LIPID, T7, CMP, TSH #### [facility] [address] [address] [address] Delmer Rea Bilirubin [Mass/Vol] 0.3 mg/dL Normal 0.2-1.0 [facility] Comment on above: Performed By: #### L IPA, DLDL, CON, LIPID, T7, CMP, TSH #### [facility] [address] [address] [address] Delmer Rea Calcium [Mass/Vol] 9.6 mg/dL Normal 8.5-10.1 [facility] Comment on above: Performed By: #### L IPA, DLDL, CON, LIPID, T7, CMP, TSH #### [facility] [address] [address] [address] Delmer Rea Chloride [Moles/Vol] 104 mmol/L Normal 98-107 [facility] Comment on above: Performed By: #### L IPA, DLDL, CON, LIPID, T7, CMP, TSH #### [facility] [address] [address] [address] Delmer Rea CO2 [Moles/Vol] 22.7 mmol/L Normal 21.0-32.0 [facility] Comment on above: Performed By: #### L IPA, DLDL, CON, LIPID, T7, CMP, TSH #### [facility] [address] [address] [address] Delmer Rea Creatinine [Mass/Vol] 2.15 mg/dL Critically high 0.55-1.02 [facility] Comment on above: Performed By: #### L IPA, DLDL, CON, LIPID, T7, CMP, TSH #### [facility] [address] [address] [address] Delmer Rea EGFR-AF NEPALESE 29 mL/min/1.73m2 Critically low >=60 [facility] Comment on above: Performed By: #### L IPA, DLDL, CON, LIPID, T7, CMP, TSH #### [facility] [address] [address] [address] Delmer Rea EGFR-NON AF NEPALESE 24 mL/min/1.73m2 Critically low >=60 [facility] Comment on above: Performed By: #### L IPA, DLDL, CON, LIPID, T7, CMP, TSH #### [facility] [address] [address] [address] Delmer Rea Globulin (S) [Mass/Vol] 4.3 g/dL Normal [facility] Comment on above: Performed By: #### L IPA, DLDL, CON, LIPID, T7, CMP, TSH #### [facility] [address] [place] [address] Dr. Delmer Rea Glucose [Mass/Vol] 189 mg/dL Critically high 74-106 [facility] Comment on above: Performed By: #### L IPA, DLDL, CON, LIPID, T7, CMP, TSH #### [facility] [address] [address] [address] Delmer Rea Potassium [Moles/Vol] 4.7 mmol/L Normal 3.5-5.1 [facility] Comment on above: Performed By: #### L IPA, DLDL, CON, LIPID, T7, CMP, TSH #### [facility] [address] [address] [address] Delmer Rea Protein [Mass/Vol] 7.8 g/dL Normal 6.4-8.2 [facility] Comment on above: Performed By: #### L IPA, DLDL, CON, LIPID, T7, CMP, TSH #### [facility] [address] [address] [address] Delmer Rea Sodium [Moles/Vol] 139 mmol/L Normal 136-145 [facility] Comment on above: Performed By: #### L IPA, DLDL, CON, LIPID, T7, CMP, TSH #### [facility] [address] [place] [address] Dr. Delmer Rea Urea nitrogen [Mass/Vol] 48.0 mg/dL Critically high 7.0-18.0 [facility] Comment on above: Performed By: #### L IPA, DLDL, CON, LIPID, T7, CMP, TSH #### [facility] [address] [place] [address] Dr. Delmer Rea Urea nitrogen/Creatinine [Mass ratio] 22.3 mg/mg Normal [facility] Comment on above: Performed By: #### L IPA, DLDL, CON, LIPID, T7, CMP, TSH #### [facility] [address] [place] [address] Dr. Delmer Rea TSHon 11-25-2022 TSH 0.063 uIU/mL Critically low 0.358-3.740 [facility] Comment on above: Performed By: #### L IPA, DLDL, CON, LIPID, T7, CMP, TSH #### [facility] [address] [place] [address] Dr. Delmer Rea CULTURE URINEon 09-12-2022 CULTURE URINE Culture Observations : LIGHT GROWTH OF MIXED GENITAL JOSE. NO POTENTIAL PATHOGENS SEEN. Normal [facility] Comment on above: Performed By: #### L IPA, DLDL, CON, LIPID, T7, CMP, TSH #### [facility] [address] [place] [address] Dr. Delmer Rea URINE MICROSCOPIC ONLYon BACTERIA MODERATE Abnormal NONE SEEN [facility] Comment on above: Performed By: #### L IPA, DLDL, CON, LIPID, T7, CMP, TSH #### [facility] [address] [place] [address] Dr. Delmer Rea Bacteria identified Cx Nom (U) CX ALREADY ORDERED Normal [facility] Comment on above: Performed By: #### L IPA, DLDL, CON, LIPID, T7, CMP, TSH #### [facility] [address] [address] [address] Delmer Rea CAST NONE SEEN Normal NONE SEEN [facility] Comment on above: Performed By: #### L IPA, DLDL, CON, LIPID, T7, CMP, TSH #### [facility] [address] [address] [address] Delmer Rea Crystals LM Nom (Urine sed) NONE SEEN Normal NONE SEEN [facility] Comment on above: Performed By: #### L IPA, DLDL, CON, LIPID, T7, CMP, TSH #### [facility] [address] [address] [address] Delmer Rea Epithelial cells LM Ql (Urine sed) FEW Abnormal NONE SEEN /RARE [facility] Comment on above: Performed By: #### L IPA, DLDL, CON, LIPID, T7, CMP, TSH #### [facility] [address] [address] [address] Delmer Rea MUCOUS NONE SEEN Normal NONE SEEN [facility] Comment on above: Performed By: #### L IPA, DLDL, CON, LIPID, T7, CMP, TSH #### [facility] [address] [address] [address] Delmer Rea RBC 5-10 Abnormal 0-2 [facility] Comment on above: Performed By: #### L IPA, DLDL, CON, LIPID, T7, CMP, TSH #### [facility] [address] [address] [address] Delmer Rea WBC (U) [#/Vol] /uL Abnormal NONE SEEN [facility] Comment on above: Performed By: #### L IPA, DLDL, CON, LIPID, T7, CMP, TSH #### [facility] [address] [address] [address] Delmer Rea YEAST PRESENT Abnormal NONE SEEN [facility] Comment on above: Performed By: #### L IPA, DLDL, CON, LIPID, T7, CMP, TSH #### [facility] [address] [address] [address] Delmer Rea NM KIDNEY W FLOW [...] Akil Cummings MD 08/05/22 Final result Normal [facility] APTTon 07-26-2022 aPTT Coag (Bld) [Time] 23.4 s Normal 20.5-30.5 [facility] Comment on above: Result Comment: IV Heparin Therapy Range: 48.6-77.8 Performed By: #### A NAX, IFX, PHEP, FKLLC, PE #### [facility] [address] [place] [address] Game Author: Bala Skelton MD aPTT Coag (Bld) [Time] 23.4 s [facility] Comment on above: IV Heparin Therapy Range: 48.6-77.8 CBC with Auto Differentialon 07-26-2022 Absolute Eos # 0.29 [facility] Absolute Immature Granulocyte 0.09 [facility] Absolute Lymph # 2.26 [facility] SECO URS [facility] Absolute Woods # 0.65 [facility] Basophils (Bld) [#/Vol] 0.04 10*3/uL [facility] Basophils/100 WBC (Bld) 1 % 0 - 2 % [facility] Eosinophils/100 WBC (Bld) 4 % 1 - 4 % [facility] Hematocrit (Bld) [Volume fraction] 29.5 % Low 36.3 - 47.1 % [facility] Hemoglobin (Bld) [Mass/Vol] 10.1 g/dL Low 11.9 - 15.1 g/dL [facility] Immature granulocytes/100 WBC (Bld) 1 % High 0 [facility] Interpretation and review of laboratory results Abnormal [facility] Lymphocytes/100 WBC (Bld) 27 % 24 - 43 % [facility] MCH (RBC) [Entitic mass] 29.3 pg 25.2 - 33.5 pg [facility] MCHC (RBC) [Mass/Vol] 34.2 g/dL 28.4 - 34.8 g/dL [facility] MCV (RBC) [Entitic vol] 85.5 fL 82.6 - 102.9 fL [facility] Monocytes/100 WBC (Bld) 8 % 3 - 12 % [facility] NRBC Automated 0.0 0.0 per 100 WBC [facility] Platelet distribution width (Bld) [Ratio] 13.4 % 11.8 - 14.4 % [facility] Platelet mean volume (Bld) [Entitic vol] 9.5 fL 8.1 - 13.5 fL [facility] Platelets (Bld) [#/Vol] 311 10*3/uL [facility] RBC (Bld) [#/Vol] 3.45 10*6/uL Low 3.95 - 5.1 1 m/uL [facility] Segmented neutrophils/100 WBC (Bld) 59 % 36 - 65 % [facility] Segs Absolute 5.00 [facility] WBC (Bld) [#/Vol] 8.3 10*3/uL [facility] CBC with Diffon 07-26-2022 Abs. Basophil 0.04 k/uL Normal 0.00-0.20 [facility] Comment on above: Performed By: #### A NAX, IFX, PHEP, FKLLC, PE #### [place] [address] Game Author: Bala Skelton MD Abs.Imm.Granulocyte 0.09 k/uL Normal 0.00-0.30 [facility] Comment on above: Performed By: #### A NAX, IFX, PHEP, FKLLC, PE #### [place] [address] Game Author: Bala Skelton MD Abs.Neutrophil (Seg) 5.00 k/uL Normal 1.50-8.10 [facility] Comment on above: Performed By: #### A NAX, IFX, PHEP, FKLLC, PE #### [facility] [employer] [address] [place] [address] Game Author: Bala Skelton MD Basophils/100 WBC (Bld) 1 % Normal 0-2 [facility] Comment on above: Performed By: #### A NAX, IFX, PHEP, FKLLC, PE #### [facility] [employer] [address] [place] [address] Game Author: Bala Skelton MD Eosinophils (Bld) [#/Vol] 0.29 10*3/uL Normal 0.00-0.44 [facility] Comment on above: Performed By: #### A NAX, IFX, PHEP, FKLLC, PE #### [address] [address] Game Author: Bala Skelton MD Eosinophils/100 WBC (Bld) 4 % Normal 1-4 [facility] Comment on above: Performed By: #### A NAX, IFX, PHEP, FKLLC, PE #### [facility] [employer] [address] [place] [id number] Game Author: Bala Skelton MD Erythrocyte distribution width (RBC) [Ratio] 13.4 % Normal 11.8-14.4 [facility] Comment on above: Performed By: #### A NAX, IFX, PHEP, FKLLC, PE #### [place] [address] Game Author: Bala Skelton MD Hematocrit (Bld) [Volume fraction] 29.5 % Low 36.3-47.1 [facility] Comment on above: Performed By: #### A NAX, IFX, PHEP, FKLLC, PE #### [facility] [employer] [address] [place] [id number] Game Author: Bala Skelton MD Hemoglobin (Bld) [Mass/Vol] 10.1 g/dL Low 11.9-15.1 [facility] Comment on above: Performed By: #### A NAX, IFX, PHEP, FKLLC, PE #### [facility] [employer] [address] [place] [id number] Game Author: Bala Skelton MD Immature granulocytes/100 WBC (Bld) 1 % High 0 [facility] Comment on above: Performed By: #### A NAX, IFX, PHEP, FKLLC, PE #### [facility] [employer] [address] [place] [id number] Game Author: Bala Skelton MD Lymphocytes (Bld) [#/Vol] 2.26 10*3/uL Normal 1.10-3.70 [facility] Comment on above: Performed By: #### A NAX, IFX, PHEP, FKLLC, PE #### [address] [address] Game Author: Bala Skelton MD Lymphocytes/100 WBC (Bld) 27 % Normal 24-43 [facility] Comment on above: Performed By: #### A NAX, IFX, PHEP, FKLLC, PE #### [address] [address] Game Author: Bala Skelton MD MCH (RBC) [Entitic mass] 29.3 pg Normal 25.2-33.5 [facility] Comment on above: Performed By: #### A NAX, IFX, PHEP, FKLLC, PE #### [address] [address] Game Author: Bala Skelton MD MCHC (RBC) [Mass/Vol] 34.2 g/dL Normal 28.4-34.8 [facility] Comment on above: Performed By: #### A NAX, IFX, PHEP, FKLLC, PE #### [address] [address] Game Author: Bala Skelton MD MCV (RBC) [Entitic vol] 85.5 fL Normal 82.6-102.9 [facility] Comment on above: Performed By: #### A NAX, IFX, PHEP, FKLLC, PE #### [address] [address] Game Author: Bala Skelton MD Monocytes (Bld) [#/Vol] 0.65 10*3/uL Normal 0.10-1.20 [facility] Comment on above: Performed By: #### A NAX, IFX, PHEP, FKLLC, PE #### [address] [address] Game Author: Bala Skelton MD Monocytes/100 WBC (Bld) 8 % Normal 3-12 [facility] Comment on above: Performed By: #### A NAX, IFX, PHEP, FKLLC, PE #### [address] [address] Game Author: Bala Skelton MD Neutrophil (Seg) 59 % Normal 36-65 [facility] Comment on above: Performed By: #### A NAX, IFX, PHEP, FKLLC, PE #### [address] [address] Game Author: Bala Skelton MD NRBC Automated 0.0 per 100 WBC Normal 0.0 [facility] Comment on above: Performed By: #### A NAX, IFX, PHEP, FKLLC, PE #### [address] [address] Game Author: Bala Skelton MD Platelet mean volume (Bld) [Entitic vol] 9.5 fL Normal 8.1-13.5 [facility] Comment on above: Performed By: #### A NAX, IFX, PHEP, FKLLC, PE #### [address] [address] Game Author: Bala Skelton MD Platelets (Bld) [#/Vol] 311 10*3/uL Normal 138-453 [facility] Comment on above: Performed By: #### A NAX, IFX, PHEP, FKLLC, PE #### [address] [address] Game Author: Bala Skelton MD RBC (Bld) [#/Vol] 3.45 10*6/uL Low 3.95-5.11 [facility] Comment on above: Performed By: #### A NAX, IFX, PHEP, FKLLC, PE #### [facility] [address] [place], [place] [id number] Game Author: Bala Skelton MD WBC (Bld) [#/Vol] 8.3 10*3/uL Normal 3.5-11.3 [facility] Comment on above: Performed By: #### A NAX, IFX, PHEP, FKLLC, PE #### [facility] [address] [place], [place] [phone] Game Author: Bala Skelton MD IR GUIDED NEPHROURETERAL CAT H REMOVE/REPLACEon 07-26-2022 1. Successful left nephroureteral stent exchange. [facility] Bishnu Wright MD - 07/26/2022 [...] detailed explanation of the procedure including risks. [place] protocol was observed. Sterile gowns, masks, hats and gloves utilized for maximal sterile barrier. The patient was placed in the prone position on the fluoroscopy table, and the existing left nephroureteral stent and flank were prepped and draped in sterile manner. The stent tubing was noted to be broken with the lumen exposed near the level of the skin. A college director image demonstrated the distal loop approximating the [...] wire. Under fluoroscopic guidance, a new 8 Polish x 22 cm nephroureteral stent was advanced over the wire; the distal loop formed in the bladder, but the proximal loop did not form in the renal pelvis. Therefore, this catheter was removed over wire, and a new 8 Polish x 24 cm nephroureteral stent was advanced [...] IMPRESSION: 1. Successful left nephroureteral stent exchange. [facility] Work Phone: Radiology Study observation (narrative) [facility] [employer] Phone: IR GUIDED NEPHROURETERAL CAT H REMOVE/REPLACEOrdered By: Bishnu Alan on 07-26-2022 [facility] [employer] Work Phone: No Panel Informationon 07-26 [facility] [employer] POC Glucose Fingerstickon Glucose [Mass/Vol] 185 mg/dL High 65 - 105 mg/dL [facility] [employer] Interpretation and review of laboratory results Abnormal [facility] [employer] [facility] [employer] PTon 07-26-2022 INR Coag (PPP) [Relative time] 0.9 {INR} Normal [facility] Comment on above: Result Comment: Therapeutic Range: Moderate Anticoagulant Intensity: INR = 2.0-3.0 High Anticoagulant Intensity: INR = 2.5-3.5 Performed By: #### A NAX, IFX, PHEP, FKLLC, PE #### [facility] [employer] [address] [place] [phone] Game Author: Bala Skelton MD PT Coag (PPP) [Time] 9.4 s Normal 9.1-12.3 [facility] Comment on above: Performed By: #### A NAX, IFX, PHEP, FKLLC, PE #### [facility] [employer] [address] [place] [address] [id number] Game Author: Bala Skelton MD Protime-INRon 07-26-2022 INR Coag (Bld) [Relative time] 0.9 {INR} [facility] Comment on above: Therapeutic Range: Moderate Anticoagulant Intensity: INR = 2.0-3.0 High Anticoagulant Intensity: INR = 2.5-3.5 PT Coag (PPP) [Time] 9.4 s [facility] Cult, Bloodon 07-25-2022 Cult, Blood Specimen Description .BLOOD Special Requests LEFT FOREARM 5ML Culture NO GROWTH 5 DAYS Report Status FINAL 07/25/2022 [facility] Comment on above: Performed By: #### B C #### [address] [id number] Game Author: Bala Skelton MD Cult,Bloodon 07-25-2022 Cult,Blood Specimen Description .BLOOD Special Requests LT WRIST 2.5ML Culture NO GROWTH 5 DAYS Report Status FINAL 07/25/2022 [facility] Comment on above: Performed By: #### B C #### [address] [phone] Game Author: Bala Skelton MD Cult,Blood Specimen Description .BLOOD Special Requests RT WRIST 2.5ML Culture NO GROWTH 5 DAYS Report Status FINAL 07/25/2022 [facility] Comment on above: Performed By: #### A NAX, IFX, PHEP, FKLLC, PE #### [facility] [employer] [address] [place] [phone] Game Author: Bala Skelton MD Cult,Blood Specimen Description .BLOOD Special Requests 2ML Culture NO GROWTH 5 DAYS Report Status FINAL 07/25/2022 [facility] Comment on above: Performed By: #### A NAX, IFX, PHEP, FKLLC, PE #### [employer] [address] [place] [phone] Game Author: Bala Skelton MD XR ABDOMEN (KUB) (SINGLE [...] Bry Foreman MD 07/25/22 Final result Normal [facility] Left PCNU in place. There is questionable discontinuity of the retroperitoneal or body wall portion of the catheter. This may be artifactual related to bowel gas. Recommend repeat exam or CT. [facility] RIS CONSOLIDATED EXAMINATION: ONE SUPINE XRAY VIEW(S) [...] of the catheter. No gross bony abnormality. [facility] CONSOLIDATED Bry Foreman MD - 07/25/2022 EXAMINATION: [...] bowel gas. Recommend repeat exam or CT. [facility] [employer] Phone: Radiology Study observation (narrative) [facility] Phone: XR ABDOMEN (KUB) (SINGLE AP VIEW)Ordered By: Bry Foreman on 07-25-2022 [facility] [employer] Phone: Cult,Bloodon 07-23-2022 Cult,Blood Specimen Description .BLOOD Special Requests R FOREARM 10 ML Culture NO GROWTH 5 DAYS Report Status FINAL 07/23/2022 Normal [facility] Comment on above: Performed By: #### A NAX, IFX, PHEP, FKLLC, PE #### [employer] [address] [place] [phone] Game Author: Bala Skelton MD Cult,Blood Specimen Description .BLOOD Special Requests L WRIST 10 ML Culture NO GROWTH 5 DAYS Report Status FINAL 07/23/2022 [facility] Comment on above: Performed By: #### L ACTIC #### [facility] [employer] [address] [place] [address] Game Author: Bala Skelton MD ALEXANDRE Screen w/reflexon 2021 ALEXANDRE Screen Negative Normal NEG [facility] Comment on above: Performed By: #### A NAX, IFX, PHEP, FKLLC, PE #### [employer] [address] [place] [address] Game Author: Bala Skelton MD Anti-dsDNA 2.1 IU/mL Normal <10.0 [facility] Comment on above: Result Comment: Reference Range: <10.0 Negative 10.0-15.0 Equivocal >15.0 Positive Performed By: #### A NAX, IFX, PHEP, FKLLC, PE #### [employer] [facility] [place] [address] Game Author: Bala Skelton MD MICKIE Screen 0.1 U/mL Normal <0.7 [facility] Comment on above: Result Comment: Reference Range: <0.7 Negative 0.7-1.0 Equivocal >1.0 Positive MICKIE Screen includes U1RNP,RNP70,Sm,Ro(SS-A),La(SS-B),CENP,Scl-70,Gina-1 Performed By: #### A NAX, IFX, PHEP, FKLLC, PE #### [employer] [facility] [place] [address] Game Author: Bala Skelton MD ALEXANDRE Screen with Reflexon Anti ds DNA 2.1 NINF [facility] Comment on above: Reference Range: <10.0 Negative 10.0-15.0 Equivocal >15.0 Positive MICKIE Antibodies Screen 0.1 U/mL [facility] - 0.7 U/mL [facility] Comment on above: Reference Range: <0.7 Negative 0.7-1.0 Equivocal >1.0 Positive MICKIE Screen includes U1RNP,RNP70,Sm,Ro(SS-A),La(SS-B),CENP,Scl-70,Gina-1 Nuclear Ab IF (S) [Titer] Negative NEGATIVE [facility] Basic Metab w/rfx MGon 07-22 (cont.) Normal [facility] Comment on above: Result Comment: Aver age GFR for 50-59 years old: 93 mL/min/1.73sq m Chronic Kidney Disease: <60 mL/min/1.73sq m Kidney failure: <15 mL/min/1.73sq m eGFR calculated using average adult body mass. Additional eGFR calculator available at: http://www.Pogojo.Viewster/multiple_crcl_2012.htm Performed By: #### A NAX, IFX, PHEP, FKLLC, PE #### [address] [address] Game Author: Bala Skelton MD Anion gap [Moles/Vol] 12 mmol/L Normal 9-17 [facility] Comment on above: Performed By: #### A NAX, IFX, PHEP, FKLLC, PE #### [address] [address] Game Author: Bala Skelton MD Calcium [Mass/Vol] 8.5 mg/dL Low 8.6-10.4 [facility] Comment on above: Performed By: #### A NAX, IFX, PHEP, FKLLC, PE #### [address] [address] Game Author: Bala Skelton MD Chloride [Moles/Vol] 101 mmol/L Normal 98-107 [facility] Comment on above: Performed By: #### A NAX, IFX, PHEP, FKLLC, PE #### [address] [address] Game Author: Bala Skelton MD CO2 [Moles/Vol] 25 mmol/L Normal 20-31 [facility] Comment on above: Performed By: #### A NAX, IFX, PHEP, FKLLC, PE #### [address] [address] Game Author: Bala Skelton MD Creatinine [Mass/Vol] 1.06 mg/dL High 0.50-0.90 [facility] Comment on above: Performed By: #### A NAX, IFX, PHEP, FKLLC, PE #### [address] [address] Game Author: Bala Skelton MD GFR, Amer >60 Normal >60 [facility] Comment on above: Performed By: #### A NAX, IFX, PHEP, FKLLC, PE #### [facility] [address] [place] [phone] Game Author: Bala Skelton MD GFR,non Amer 55 mL/min Low >60 [facility] Comment on above: Performed By: #### A NAX, IFX, PHEP, FKLLC, PE #### [facility] [employer] [address] [place] [address] Game Author: Bala Skelton MD Glucose [Mass/Vol] 172 mg/dL High 70-99 [facility] Comment on above: Performed By: #### A NAX, IFX, PHEP, FKLLC, PE #### [facility] [employer] [address] [place] [address] Game Author: Bala Skelton MD Potassium [Moles/Vol] 4.1 mmol/L Normal 3.7-5.3 [facility] Comment on above: Performed By: #### A NAX, IFX, PHEP, FKLLC, PE #### [facility] [employer] [address] [place] [address] Game Author: Bala Skelton MD Sodium [Moles/Vol] 138 mmol/L Normal 135-144 [facility] Comment on above: Performed By: #### A NAX, IFX, PHEP, FKLLC, PE #### [facility] [employer] [address] [place] [address] Game Author: Bala Skelton MD Urea nitrogen [Mass/Vol] 24 mg/dL High 6-20 [facility] Comment on above: Performed By: #### A NAX, IFX, PHEP, FKLLC, PE #### [facility] [employer] [address] [place] [address] Game Author: Bala Skelton MD Basic Metabolic Panel w/ Ref romulo to MGon 07-22-2022 Anion gap [Moles/Vol] 12 mmol/L 9 - 17 mmol/L [facility] [employer] Calcium [Mass/Vol] 8.5 mg/dL Low 8.6 - 10. 4 mg/dL [facility] Chloride [Moles/Vol] 101 mmol/L 98 - 10 7 mmol/L [facility] [employer] CO2 [Moles/Vol] 25 mmol/L 20 - 31 mmol/L [facility] Creatinine [Mass/Vol] 1.06 mg/dL High 0.5 - 0.9 mg/dL [facility] GFR >60 60 - PI NF mL/min [facility] [employer] GFR Non- 55 mL/min Low 60 - PINF mL/min [facility] GFR/1.73 sq M.predicted MDRD (S/P/Bld) [Vol rate/Area] [facility] [employer] Comment on above: Average GFR for 50-5 9 years old: 93 mL/min/1.73sq m Chronic Kidney Disease: <60 mL/min/1.73sq m Kidney failure: <15 mL/min/1.73sq m eGFR calculated using average adult body mass. Additional eGFR calculator available at: http://www.Radiate Media/multiple_crcl_2012.htm Glucose [Mass/Vol] 172 mg/dL High 70 - 99 mg/dL [facility] [employer] Interpretation and review of laboratory results Abnormal [facility] Potassium [Moles/Vol] 4.1 mmol/L 3.7 - 5.3 mmol/L [facility] Sodium [Moles/Vol] 138 mmol/L 135 - 144 mmol/L [facility] Urea nitrogen (BldV) [Mass/Vol] 24 mg/dL High 6 - 20 mg/dL [facility] [employer] Electrophoresis Protein, Ser on 07-22-2022 Albumin % 57 % 45 - 65 % [facility] [employer] Albumin [Mass/Vol] 3.6 g/dL 3.2 - 5.2 g/dL [facility] [employer] Alpha 1 % 4 % 3 - 6 % [facility] [employer] Alpha 2 % 15 % High 6 - 13 % [facility] Ruktb-3-Sinxpzts 0.2 g/dL 0.1 - 0.4 g/dL [facility] Porzy-1-Xwtsvggo 0.9 g/dL 0.5 - 0.9 g/dL [facility] Beta Globulin 0.9 g/dL 0.5 - 1.1 g/dL [facility] Beta Percent 14 % 11 - 19 % [facility] Free PSA/Total PSA [Mass fraction] 6.3 g/dL Low 6.4 - 8.3 g/dL [facility] Gamma Globulin 0.6 g/dL 0.5 - 1.5 g/dL [facility] Gamma Globulin % 10 % 9 - 20 % [facility] Interpretation and review of laboratory results Abnormal [facility] Pathologist Cyto stain Nom (Cvx/Vag) [ID] Reviewed by pathologist: Mary tSovall M.D. [facility] Protein Electrophoresis, Serum NORMAL ELECTROPHORETIC PATTERN [facility] Comment on above: IMMUNOFIXATION IS NE GATIVE FOR MONOCLONAL IMMUNOGLOBULIN. Total Prot. Sum 6.2 g/dL Low 6.3 - 8.2 g/dL [facility] Total Prot. Sum,% 100 % 98 - 102 % [facility] Hepatitis Acute [facility] 07-22 Hep A Ab,IgM Non-Reactive [facility] Comment on above: Performed By: #### A NAX, IFX, PHEP, FKLLC, PE #### [employer] [address] [place], [place] [phone] Game Author: Bala Skelton MD Hep B Core Ab,IgM Non-Reactive [facility] Comment on above: Performed By: #### A NAX, IFX, PHEP, FKLLC, PE #### [employer] [address] [place], [place] [phone] Game Author: Bala Skelton MD Hep B Surf Ag Non-Reactive [facility] Comment on above: Performed By: #### A NAX, IFX, PHEP, FKLLC, PE #### [facility] [address] [place], [place] [phone] Game Author: Bala Skelton MD Hep C Ab Non-Reactive [facility] Comment on above: Result Comment: The [...] A NAX, IFX, PHEP, FKLLC, PE #### [facility] [employer] [address] [place], [place] [phone] Game Author: Bala Skelton MD Hepatitis Panel, Acuteon HAV IgM IA Qn (S) Non-Reactive NONREACTIVE [facility] Hep B Core Ab, IgM Non-Reactive NONREACTIVE [facility] Hepatitis B Surface Ag Non-Reactive NONREACTIVE [facility] Hepatitis C Ab Non-Reactive NONREACTIVE [facility] Comment on above: The hepatitis C [...] recommended by ordering HCV RNA by PCR. [facility] Immunofixation serum profile on 07-22-2022 Pathologist Cyto stain Nom (Cvx/Vag) [ID] Reviewed by pathologist: Mary Stovall M.D. [facility] Serum IFX Interp IMMUNOFIXATION IS NEGATIVE FOR MONOCLONAL IMMUNOGLOBULIN. [facility] Immunofixation urine random profileon 07-22-2022 Protein (U) [Mass/Vol] 144 mg/dL [facility] Urine IFX Interp IMMUNOFIXATION IS NEGATIVE FOR MONOCLONAL IMMUNOGLOBULIN. [facility] Urine IFX Specimen .URINE [facility] Immunofixation,Bloodon 07-22 IFX - Interpret. IMMUNOFIXATION IS NEGATIVE FOR MONOCLONAL IMMUNOGLOBULIN. Normal [facility] Comment on above: Performed By: #### A NAX, IFX, PHEP, FKLLC, PE #### [facility] [address] [place] [phone] Game Author: Bala Skelton MD Pathologist Review: Reviewed by pathologist: Mary Stovall M.D. [facility] Comment on above: Performed By: #### A NAX, IFX, PHEP, FKLLC, PE #### [facility] [address] [place] [phone] Game Author: Bala Skelton MD Immunofixation,Urineon 07-22 Ur. IFX-Interpret IMMUNOFIXATION IS NEGATIVE FOR MONOCLONAL IMMUNOGLOBULIN. Normal [facility] Comment on above: Performed By: #### A NAX, IFX, PHEP, FKLLC, PE #### [facility] [address] [place] [address] Game Author: Bala Skelton MD Lactic Acidon 07-22-2022 Lactic Acid,Whole Bl 1.9 mmol/L Normal 0.7-2.1 [facility] Comment on above: Performed By: #### A NAX, IFX, PHEP, FKLLC, PE #### [facility] [address] [place] [address] Game Author: Bala Skelton MD Lactic Acid, Whole Blood 1.9 mmol/L 0.7 - 2.1 mmol/L [facility] Lactic Acid,Whole Bl 2.3 mmol/L High 0.7-2.1 [facility] Comment on above: Performed By: #### L ACTIC #### [facility] [address] [place] [address] Game Author: Bala Skelton MD Interpretation and review of laboratory results Abnormal [facility] Lactic Acid, Whole Blood 2.3 mmol/L High 0.7 - 2.1 mmol/L [facility] POC Glucose Fingerstickon Glucose [Mass/Vol] 164 mg/dL High 65 - 105 mg/dL [facility] Interpretation and review of laboratory results Abnormal [facility] Glucose [Mass/Vol] 177 mg/dL High 65 - 105 mg/dL [facility] Interpretation and review of laboratory results Abnormal [facility] Prot. Electroph, Blon 2021 Pathologist Review: Reviewed by pathologist: Mary Stovall M.D. Normal [facility] Comment on above: Performed By: #### A NAX, IFX, PHEP, FKLLC, PE #### [address] [phone] Game Author: Bala Skelton MD Prot. Elect-Interp NORMAL ELECTROPHORET IC PATTERN Normal [facility] Comment on above: Result Comment: IMMU NOFIXATION IS NEGATIVE FOR MONOCLONAL IMMUNOGLOBULIN. Performed By: #### A NAX, IFX, PHEP, FKLLC, PE #### [address] [address] Game Author: Bala Skelton MD Total Prot. Sum 6.2 g/dL Low 6.3-8.2 [facility] Comment on above: Performed By: #### A NAX, IFX, PHEP, FKLLC, PE #### [address] [address] Game Author: Bala Skelton MD Total Prot. Sum,% 100 % Normal 98-102 [facility] Comment on above: Performed By: #### A NAX, IFX, PHEP, FKLLC, PE #### [address] [address] Game Author: Bala Skelton MD Prot. Electrophoresis, Uron 07-22-2022 Pathologist Review: Reviewed by pathologist: Mary Stovall M.D. Normal [facility] Comment on above: Performed By: #### A NAX, IFX, PHEP, FKLLC, PE #### [facility] [address] [place] [address] Game Author: Bala Skelton MD Ur.-Prot.Elect-Inter ELEVATED PROTEIN CONCENTRATION. MOST SERUM PROTEINS ARE DETECTED IN THIS URINE. Normal [facility] Comment on above: Result Comment: USUA LLY OBSERVED WITH MARKEDLY INCREASED NON-SELECTIVE GLOMERULAR PERMEABILITY (i.e. SEVERE GLOMERULAR DISEASE), CONTAMINATION OF URINE WITH BLOOD, OR A COMBINATION OF THESE. A DECREASE IN TUBULAR FUNCTION CANNOT BE RULED OUT. IMMUNOFIXATION IS NEGATIVE FOR MONOCLONAL IMMUNOGLOBULIN. Performed By: #### A NAX, IFX, PHEP, FKLLC, PE #### [facility] [address] [place], [place] [phone] Game Author: Bala Skelton MD Protein Electrophoresis, Uri neon 07-22-2022 P E Interpretation, U ELEVATED PROTEIN CONCENTRATION. MOST SERUM PROTEINS ARE DETECTED IN THIS URINE. USUALLY OBSERVED WITH MARKEDLY INCREASED NON-SELECTIVE GLOMERULAR PERMEABILITY (i.e. SEVERE GLOMERULAR DISEASE), CONTAMINATION OF [facility] [employer] Comment on above: URINE WITH BLOOD, OR A COMBINATION OF THESE. A DECREASE IN TUBULAR FUNCTION CANNOT BE RULED OUT. IMMUNOFIXATION IS NEGATIVE FOR MONOCLONAL IMMUNOGLOBULIN. Pathologist Reviewed by pathologist: Mary Stovall M.D. [employer] Protein (U) [Mass/Vol] 144 mg/dL [employer] Specimen Type .URINE 20lines [facility] Basic Metab w/rfx MGon 07-21 (cont.) Normal [facility] Comment on above: Result Comment: Aver age GFR for 50-59 years old: 93 mL/min/1.73sq m Chronic Kidney Disease: <60 mL/min/1.73sq m Kidney failure: <15 mL/min/1.73sq m eGFR calculated using average adult body mass. Additional eGFR calculator available at: http://www.Pogojo.Viewster/multiple_crcl_2012.htm Performed By: #### A NAX, IFX, PHEP, FKLLC, PE #### [facility] [employer] [address] [place] [address] Game Author: Bala Skelton MD Anion gap [Moles/Vol] 12 mmol/L Normal 9-17 [facility] Comment on above: Performed By: #### A NAX, IFX, PHEP, FKLLC, PE #### [facility] [address] [place] [address] Game Author: Bala Skelton MD Calcium [Mass/Vol] 8.3 mg/dL Low 8.6-10.4 [facility] Comment on above: Performed By: #### A NAX, IFX, PHEP, FKLLC, PE #### [facility] [employer] [address] [place] [address] Game Author: Bala Skelton MD Chloride [Moles/Vol] 101 mmol/L Normal 98-107 [facility] Comment on above: Performed By: #### A NAX, IFX, PHEP, FKLLC, PE #### [facility] [employer] [address] [place] [address] Game Author: Bala Skelton MD CO2 [Moles/Vol] 23 mmol/L Normal 20-31 [facility] Comment on above: Performed By: #### A NAX, IFX, PHEP, FKLLC, PE #### [facility] [address] [place] [address] Game Author: Bala Skelton MD Creatinine [Mass/Vol] 1.00 mg/dL High 0.50-0.90 [facility] Comment on above: Performed By: #### A NAX, IFX, PHEP, FKLLC, PE #### [facility] [employer] [address] [place] [address] Game Author: Bala Skelton MD GFR, Amer >60 Normal >60 [facility] Comment on above: Performed By: #### A NAX, IFX, PHEP, FKLLC, PE #### [address] [address] Game Author: Bala Skelton MD GFR,non Amer 59 mL/min Low >60 [facility] Comment on above: Performed By: #### A NAX, IFX, PHEP, FKLLC, PE #### [address] [address] Game Author: Bala Skelton MD Glucose [Mass/Vol] 157 mg/dL High 70-99 [facility] Comment on above: Performed By: #### A NAX, IFX, PHEP, FKLLC, PE #### [address] [address] Game Author: Bala Skelton MD Potassium [Moles/Vol] 3.7 mmol/L Normal 3.7-5.3 [facility] Comment on above: Performed By: #### A NAX, IFX, PHEP, FKLLC, PE #### [address] [address] Game Author: Bala Skelton MD Sodium [Moles/Vol] 136 mmol/L Normal 135-144 [facility] Comment on above: Performed By: #### A NAX, IFX, PHEP, FKLLC, PE #### [address] [address] Game Author: Bala Skelton MD Urea nitrogen [Mass/Vol] 26 mg/dL High 6-20 [facility] Comment on above: Performed By: #### A NAX, IFX, PHEP, FKLLC, PE #### [employer] [address] Game Author: Bala Skelton MD (cont.) [facility] Comment on above: Result Comment: Aver age GFR for 50-59 years old: 93 mL/min/1.73sq m Chronic Kidney Disease: <60 mL/min/1.73sq m Kidney failure: <15 mL/min/1.73sq m eGFR calculated using average adult body mass. Additional eGFR calculator available at: http://www.Radiate Media/multiple_crcl_2012.htm Performed By: #### B C #### [address] [address] Game Author: Bala Skelton MD Anion gap [Moles/Vol] 13 mmol/L Normal 9-17 [facility] Comment on above: Performed By: #### B C #### [address] [address] Game Author: Bala Skelton MD Calcium [Mass/Vol] 8.1 mg/dL Low 8.6-10.4 [facility] Comment on above: Performed By: #### B C #### [address] [address] Game Author: Bala Skelton MD Chloride [Moles/Vol] 101 mmol/L Normal 98-107 [facility] Comment on above: Performed By: #### B C #### [address] [address] Game Author: Bala Skelton MD CO2 [Moles/Vol] 20 mmol/L Normal 20-31 [facility] Comment on above: Performed By: #### B C #### [address] [address] Game Author: Bala Skelton MD Creatinine [Mass/Vol] 1.28 mg/dL High 0.50-0.90 [facility] Comment on above: Performed By: #### B C #### [facility] [address] [place] [address] Game Author: Bala Skelton MD GFR, Amer 54 mL/min Low >60 [facility] Comment on above: Performed By: #### B C #### [address] [address] Game Author: Bala Skelton MD GFR,non Amer 44 mL/min Low >60 [facility] Comment on above: Performed By: #### B C #### [address] [address] Game Author: Bala Skelton MD Glucose [Mass/Vol] 224 mg/dL High 70-99 [facility] Comment on above: Performed By: #### B C #### [address] [address] Game Author: Bala Skelton MD Potassium [Moles/Vol] 3.8 mmol/L Normal 3.7-5.3 [facility] Comment on above: Performed By: #### B C #### [address] [address] Game Author: Bala Skelton MD Sodium [Moles/Vol] 134 mmol/L Low 135-144 [facility] Comment on above: Performed By: #### B C #### [address] [address] Game Author: Bala Skelton MD Urea nitrogen [Mass/Vol] 28 mg/dL High 6-20 [facility] Comment on above: Performed By: #### B C #### [address] [address] Game Author: Bala Skelton MD Anion gap [Moles/Vol] 13 mmol/L Normal 9-17 [facility] Comment on above: Performed By: #### A NAX, IFX, PHEP, FKLLC, PE #### [address] [address] Game Author: Bala Skelton MD Sodium [Moles/Vol] 131 mmol/L Low 135-144 [facility] Comment on above: Performed By: #### A NAX, IFX, PHEP, FKLLC, PE #### [address] [address] Game Author: Bala Skelton MD (cont.) Normal [facility] Comment on above: Result Comment: Aver age GFR for 50-59 years old: 93 mL/min/1.73sq m Chronic Kidney Disease: <60 mL/min/1.73sq m Kidney failure: <15 mL/min/1.73sq m eGFR calculated using average adult body mass. Additional eGFR calculator available at: http://www.Radiate Media/multiple_crcl_2012.htm Performed By: #### A NAX, IFX, PHEP, FKLLC, PE #### [address] [address] Game Author: Bala Skelton MD Calcium [Mass/Vol] 8.4 mg/dL Low 8.6-10.4 [facility] Comment on above: Performed By: #### A NAX, IFX, PHEP, FKLLC, PE #### [address] [address] Game Author: Bala Skelton MD Chloride [Moles/Vol] 100 mmol/L Normal 98-107 [facility] Comment on above: Performed By: #### A NAX, IFX, PHEP, FKLLC, PE #### [address] [address] Game Author: Bala Skelton MD CO2 [Moles/Vol] 18 mmol/L Low 20-31 [facility] Comment on above: Performed By: #### A NAX, IFX, PHEP, FKLLC, PE #### [address] [address] Game Author: Bala Skelton MD Creatinine [Mass/Vol] 1.37 mg/dL High 0.50-0.90 [facility] Comment on above: Performed By: #### A NAX, IFX, PHEP, FKLLC, PE #### [facility] [address] [place] [address] Game Author: Bala Skelton MD GFR, Amer 49 mL/min Low >60 [facility] Comment on above: Performed By: #### A NAX, IFX, PHEP, FKLLC, PE #### [address] [address] Game Author: Bala Skelton MD GFR,non Amer 41 mL/min Low >60 [facility] Comment on above: Performed By: #### A NAX, IFX, PHEP, FKLLC, PE #### [address] [address] Game Author: Bala Skelton MD Glucose [Mass/Vol] 184 mg/dL High 70-99 [facility] Comment on above: Performed By: #### A NAX, IFX, PHEP, FKLLC, PE #### [facility] [employer] [address] [place] [address] Game Author: Bala Skelton MD Potassium [Moles/Vol] 3.8 mmol/L Normal 3.7-5.3 [facility] Comment on above: Performed By: #### A NAX, IFX, PHEP, FKLLC, PE #### [facility] [employer] [address] [place] [address] Game Author: Bala Skelton MD Urea nitrogen [Mass/Vol] 27 mg/dL High 6-20 [facility] Comment on above: Performed By: #### A NAX, IFX, PHEP, FKLLC, PE #### [facility] [address] [place] [phone] Game Author: Bala Skelton MD Basic Metabolic Panel w/ Ref romulo to MGon 07-21-2022 Anion gap [Moles/Vol] 12 mmol/L 9 - 17 mmol/L [facility] Calcium [Mass/Vol] 8.3 mg/dL Low 8.6 - 10. 4 mg/dL [facility] Chloride [Moles/Vol] 101 mmol/L 98 - 10 7 mmol/L [facility] [employer] CO2 [Moles/Vol] 23 mmol/L 20 - 31 mmol/L [facility] Creatinine [Mass/Vol] 1 mg/dL High 0.5 - 0.9 mg/dL [facility] GFR >60 60 - PI NF mL/min [employer] [facility] GFR Non- 59 mL/min Low 60 - PINF mL/min [employer] [facility] GFR/1.73 sq M.predicted MDRD (S/P/Bld) [Vol rate/Area] [facility] [employer] Comment on above: Average GFR for 50-5 9 years old: 93 mL/min/1.73sq m Chronic Kidney Disease: <60 mL/min/1.73sq m Kidney failure: <15 mL/min/1.73sq m eGFR calculated using average adult body mass. Additional eGFR calculator available at: http://www.Pogojo.Viewster/multiple_crcl_2012.htm Glucose [Mass/Vol] 157 mg/dL High 70 - 99 mg/dL [facility] Interpretation and review of laboratory results Abnormal [facility] Potassium [Moles/Vol] 3.7 mmol/L 3.7 - 5.3 mmol/L [facility] [facility] Sodium [Moles/Vol] 136 mmol/L 135 - 144 mmol/L [facility] Urea nitrogen (BldV) [Mass/Vol] 26 mg/dL High 6 - 20 mg/dL [facility] Anion gap [Moles/Vol] 13 mmol/L 9 - 17 mmol/L [facility] Calcium [Mass/Vol] 8.1 mg/dL Low 8.6 - 10. 4 mg/dL [facility] Chloride [Moles/Vol] 101 mmol/L 98 - 10 7 mmol/L [facility] CO2 [Moles/Vol] 20 mmol/L 20 - 31 mmol/L [facility] Creatinine [Mass/Vol] 1.28 mg/dL High 0.5 - 0.9 mg/dL [facility] GFR 54 mL/min Low 60 - PI NF mL/min [facility] GFR Non- 44 mL/min Low 60 - PINF mL/min [facility] GFR/1.73 sq M.predicted MDRD (S/P/Bld) [Vol rate/Area] [facility] Comment on above: Average GFR for 50-5 9 years old: 93 mL/min/1.73sq m Chronic Kidney Disease: <60 mL/min/1.73sq m Kidney failure: <15 mL/min/1.73sq m eGFR calculated using average adult body mass. Additional eGFR calculator available at: http://www.[employer]/multiple_crcl_2011.htm Glucose [Mass/Vol] 224 mg/dL High 70 - 99 mg/dL [facility] Interpretation and review of laboratory results Abnormal [facility] Potassium [Moles/Vol] 3.8 mmol/L 3.7 - 5.3 mmol/L [facility] Sodium [Moles/Vol] 134 mmol/L Low 135 - 144 mmol/L [facility] Urea nitrogen (BldV) [Mass/Vol] 28 mg/dL High 6 - 20 mg/dL [facility] Immunofixation,Urineon 07-21 Protein (U) [Mass/Vol] 144 mg/dL Normal [facility] Comment on above: Performed By: #### A NAX, IFX, PHEP, FKLLC, PE #### [facility] [address] [place] [phone] Game Author: Bala Skelton MD Type of Specimen .URINE Normal [facility] Comment on above: Performed By: #### A NAX, IFX, PHEP, FKLLC, PE #### [facility] [address] [place] [address] [phone] Game Author: Bala Skelton MD Lactic Acidon 07-21-2022 Lactic Acid,Whole Bl 2.5 mmol/L High 0.7-2.1 [facility] Comment on above: Performed By: #### A NAX, IFX, PHEP, FKLLC, PE #### [facility] [address] [place] [address] [phone] Game Author: Bala Skelton MD Interpretation and review of laboratory results Abnormal [facility] Lactic Acid, Whole Blood 2.5 mmol/L High 0.7 - 2.1 mmol/L [facility] Lactic Acid,Whole Bl 1.9 mmol/L Normal 0.7-2.1 [facility] Comment on above: Performed By: #### L ACTIC #### [facility] [address] [place] [address] [phone] Game Author: Bala Skelton MD Lactic Acid, Whole Blood 1.9 mmol/L 0.7 - 2.1 mmol/L [facility] Lactic Acid,Whole Bl 3.0 mmol/L High 0.7-2.1 [facility] Comment on above: Performed By: #### A NAX, IFX, PHEP, FKLLC, PE #### [facility] [address] [place] [address] [phone] Game Author: Bala Skelton MD Interpretation and review of laboratory results Abnormal [facility] Lactic Acid, Whole Blood 3.0 mmol/L High 0.7 - 2.1 mmol/L [facility] Lactic Acid,Whole Bl 2.2 mmol/L High 0.7-2.1 [facility] Comment on above: Performed By: #### A NAX, IFX, PHEP, FKLLC, PE #### [facility] [address] [place] [address] Game Author: Bala Skelton MD Interpretation and review of laboratory results Abnormal [facility] Lactic Acid, Whole Blood 2.2 mmol/L High 0.7 - 2.1 mmol/L [facility] POC Glucose Fingerstickon Glucose [Mass/Vol] 210 mg/dL High 65 - 105 mg/dL [facility] Interpretation and review of laboratory results Abnormal [facility] Glucose [Mass/Vol] 142 mg/dL High 65 - 105 mg/dL [facility] Interpretation and review of laboratory results Abnormal [facility] Glucose [Mass/Vol] 227 mg/dL High 65 - 105 mg/dL [facility] Interpretation and review of laboratory results Abnormal [facility] Glucose [Mass/Vol] 219 mg/dL High 65 - 105 mg/dL [facility] Interpretation and review of laboratory results Abnormal [facility] Prot. Electroph, Blon 2021 Albumin [Mass/Vol] 3.6 g/dL Normal 3.2-5.2 [facility] Comment on above: Performed By: #### A NAX, IFX, PHEP, FKLLC, PE #### [facility] [address] [place], [place] [phone] Game Author: Bala Skelton MD Albumin, % 57 % Normal 45-65 [facility] Comment on above: Performed By: #### A NAX, IFX, PHEP, FKLLC, PE #### [facility] [address] [place], [place] [phone] Game Author: Bala Skelton MD Blsjt-9-[id number] 0.2 g/dL Normal 0.1-0.4 [facility] Comment on above: Performed By: #### A NAX, IFX, PHEP, FKLLC, PE #### [address] [address] Game Author: Bala Skelton MD Jwvhw-0-qvmrveqki,% 4 % Normal 3-6 [facility] Comment on above: Performed By: #### A NAX, IFX, PHEP, FKLLC, PE #### [address] [address] Game Author: Bala Skelton MD Utogv-6-yvlqsvcdz 0.9 g/dL Normal 0.5-0.9 [facility] Comment on above: Performed By: #### A NAX, IFX, PHEP, FKLLC, PE #### [address] [address] Game Author: Bala Skelton MD Ggyjj-3-nwqvuhwjp,% 15 % High 6-13 [facility] Comment on above: Performed By: #### A NAX, IFX, PHEP, FKLLC, PE #### [address] [address] Game Author: Bala Skelton MD Beta-globulins 0.9 g/dL Normal 0.5-1.1 [facility] Comment on above: Performed By: #### A NAX, IFX, PHEP, FKLLC, PE #### [address] [address] Game Author: Bala Skelton MD Beta-globulins,% 14 % Normal 11-19 [facility] Comment on above: Performed By: #### A NAX, IFX, PHEP, FKLLC, PE #### [address] [phone] Game Author: Bala Skelton MD Gamma-globulins 0.6 g/dL Normal 0.5-1.5 [facility] Comment on above: Performed By: #### A NAX, IFX, PHEP, FKLLC, PE #### [facility] [address] [place], [place] [phone] Game Author: Bala Skelton MD Gamma-globulins,% 10 % Normal - [facility] Comment on above: Performed By: #### A NAX, IFX, PHEP, FKLLC, PE #### [facility] [address] [place], [place] [phone] Game Author: Bala Skelton MD Prot. Electrophoresis, Uron 07-21-2022 Total Protein Conc. 144 mg/dL Normal [facility] Comment on above: Performed By: #### A NAX, IFX, PHEP, FKLLC, PE #### [facility] [address] [place] [address] Game Author: Bala Skelton MD BLOOD GAS, VENOUSon 07-20-20 22 Carboxyhemoglobin 1.4 % 0 - 5 % [facility] [email or web address] [facility] [employer] Comment on above: Reference Range: Non-Smokers 0-2% Average Smoker 2-4% Heavy Smoker <10% FIO2 INFORMATION NOT PROVIDED [email or web address] [employer] HCO3 (Bld) [Moles/Vol] 19.6 mmol/L Low 24 - 30 mmol/L [email or web address] [employer] Interpretation and review of laboratory results Abnormal [email or web address] Negative Base Excess, Olaf 5.6 mmol/L High 0 - 2 mmol/L [email or web address] [employer] Oxygen saturation in Blood 74.4 % 60 - 85 % [email or web address] [employer] pCO2, Olaf 39.5 39 - 55 [facility] [employer] pH, Olaf 7.316 Low 7.32 - 7.42 [email or web address] [employer] pO2, Olaf 36.9 30 - 50 [email or web address] [employer] Pt Temp 37.0 [email or web address] Basic Metab w/rfx MGon 07-20 (cont.) Normal [facility] Comment on above: Result Comment: Aver age GFR for 50-59 years old: 93 mL/min/1.73sq m Chronic Kidney Disease: <60 mL/min/1.73sq m Kidney failure: <15 mL/min/1.73sq m eGFR calculated using average adult body mass. Additional eGFR calculator available at: http://www.[employer]/multiple_crcl_2012.htm Performed By: #### A NAX, IFX, PHEP, FKLLC, PE #### [facility] [address] [place] [phone] Game Author: Bala Skelton MD Anion gap [Moles/Vol] 13 mmol/L Normal 9-17 [facility] Comment on above: Performed By: #### A NAX, IFX, PHEP, FKLLC, PE #### [facility] [employer] [address] [place] [phone] Game Author: Bala Skelton MD Calcium [Mass/Vol] 8.7 mg/dL Normal 8.6-10.4 [facility] Comment on above: Performed By: #### A NAX, IFX, PHEP, FKLLC, PE #### [facility] [address] [place] [phone] Game Author: Bala Skelton MD Chloride [Moles/Vol] 97 mmol/L Low 98-107 [facility] Comment on above: Performed By: #### A NAX, IFX, PHEP, FKLLC, PE #### [facility] [address] [place] [phone] Game Author: Bala Skelton MD CO2 [Moles/Vol] 18 mmol/L Low 20-31 [facility] Comment on above: Performed By: #### A NAX, IFX, PHEP, FKLLC, PE #### [facility] [address] [place] [phone] Game Author: Blaa Skelton MD Creatinine [Mass/Vol] 1.62 mg/dL High 0.50-0.90 [facility] Comment on above: Performed By: #### A NAX, IFX, PHEP, FKLLC, PE #### [facility] [address] [place] [phone] Game Author: Bala Skelton MD GFR, Amer 41 mL/min Low >60 [facility] Comment on above: Performed By: #### A NAX, IFX, PHEP, FKLLC, PE #### [address] [address] Game Author: Bala Skelton MD GFR,non Amer 34 mL/min Low >60 [facility] Comment on above: Performed By: #### A NAX, IFX, PHEP, FKLLC, PE #### [facility] [employer] [address] [place] [address] 70414 Game Author: Bala Skelton MD Glucose [Mass/Vol] 360 mg/dL High 70-99 [facility] Comment on above: Performed By: #### A NAX, IFX, PHEP, FKLLC, PE #### [facility] [employer] [address] [place] [address] 14725 Game Author: Bala Skelton MD Potassium [Moles/Vol] 5.1 mmol/L Normal 3.7-5.3 [facility] Comment on above: Performed By: #### A NAX, IFX, PHEP, FKLLC, PE #### [facility] [employer] [address] [place] [address] 24704 Game Author: Bala Skelton MD Sodium [Moles/Vol] 128 mmol/L Low 135-144 [facility] Comment on above: Performed By: #### A NAX, IFX, PHEP, FKLLC, PE #### [address] [phone] Game Author: Bala Skelton MD Urea nitrogen [Mass/Vol] 32 mg/dL High 6-20 [facility] Comment on above: Performed By: #### A NAX, IFX, PHEP, FKLLC, PE #### [address] [address] Game Author: Bala Skelton MD (cont.) Normal [facility] Comment on above: Result Comment: Aver age GFR for 50-59 years old: 93 mL/min/1.73sq m Chronic Kidney Disease: <60 mL/min/1.73sq m Kidney failure: <15 mL/min/1.73sq m eGFR calculated using average adult body mass. Additional eGFR calculator available at: http://www.[employer]/multiple_crcl_2011.htm Performed By: #### A NAX, IFX, PHEP, FKLLC, PE #### [address] [address] Game Author: Bala Skelton MD Anion gap [Moles/Vol] 14 mmol/L Normal 9-17 [facility] Comment on above: Performed By: #### A NAX, IFX, PHEP, FKLLC, PE #### [address] [address] Game Author: Bala Skelton MD Calcium [Mass/Vol] 8.2 mg/dL Low 8.6-10.4 [facility] Comment on above: Performed By: #### A NAX, IFX, PHEP, FKLLC, PE #### [facility] [employer] [address] [place] [phone] Game Author: Bala Skelton MD Chloride [Moles/Vol] 96 mmol/L Low 98-107 [facility] Comment on above: Performed By: #### A NAX, IFX, PHEP, FKLLC, PE #### [facility] [address] [place] [phone] Game Author: Bala Skelton MD CO2 [Moles/Vol] 17 mmol/L Low 20-31 [facility] Comment on above: Performed By: #### A NAX, IFX, PHEP, FKLLC, PE #### [facility] [address] [place] [phone] Game Author: Bala Skelton MD Creatinine [Mass/Vol] 1.68 mg/dL High 0.50-0.90 [facility] Comment on above: Performed By: #### A NAX, IFX, PHEP, FKLLC, PE #### [facility] [employer] [address] [place] [address] Game Author: Bala Skelton MD GFR, Amer 39 mL/min Low >60 [facility] Comment on above: Performed By: #### A NAX, IFX, PHEP, FKLLC, PE #### [address] [address] Game Author: Bala Skelton MD GFR,non Amer 32 mL/min Low >60 [facility] Comment on above: Performed By: #### A NAX, IFX, PHEP, FKLLC, PE #### [address] [address] Game Author: Bala Skelton MD Potassium [Moles/Vol] 4.4 mmol/L Normal 3.7-5.3 [facility] Comment on above: Performed By: #### A NAX, IFX, PHEP, FKLLC, PE #### [facility] [employer] [address] [place] [address] Game Author: Bala Skelton MD Sodium [Moles/Vol] 127 mmol/L Low 135-144 [facility] Comment on above: Performed By: #### A NAX, IFX, PHEP, FKLLC, PE #### [address] [address] Game Author: Bala Skelton MD Urea nitrogen [Mass/Vol] 33 mg/dL High 6-20 [facility] Comment on above: Performed By: #### A NAX, IFX, PHEP, FKLLC, PE #### [address] [address] Game Author: Bala Skelton MD Glucose [Mass/Vol] 427 mg/dL Critically high 70-99 [facility] Comment on above: Performed By: #### A NAX, IFX, PHEP, FKLLC, PE #### [address] [address] Game Author: Bala Skelton MD Glucose [Mass/Vol] 416 mg/dL Critically high 70-99 M [facility] Comment on above: Performed By: #### A NAX, IFX, PHEP, FKLLC, PE #### [address] [address] Game Author: Bala Skelton MD (cont.) Normal [facility] Comment on above: Result Comment: Aver age GFR for 50-59 years old: 93 mL/min/1.73sq m Chronic Kidney Disease: <60 mL/min/1.73sq m Kidney failure: <15 mL/min/1.73sq m eGFR calculated using average adult body mass. Additional eGFR calculator available at: http://www.[employer].com/multiple_crcl_2012.htm Performed By: #### A NAX, IFX, PHEP, FKLLC, PE #### [address] [address] Game Author: Bala Skelton MD Anion gap [Moles/Vol] 15 mmol/L Normal 9-17 [facility] Comment on above: Performed By: #### A NAX, IFX, PHEP, FKLLC, PE #### [address] [address] Game Author: Bala Skelton MD Calcium [Mass/Vol] 8.5 mg/dL Low 8.6-10.4 [facility] Comment on above: Performed By: #### A NAX, IFX, PHEP, FKLLC, PE #### [address] [address] Game Author: Bala Skelton MD Chloride [Moles/Vol] 95 mmol/L Low 98-107 [facility] Comment on above: Performed By: #### A NAX, IFX, PHEP, FKLLC, PE #### [address] [address] Game Author: Bala Skelton MD CO2 [Moles/Vol] 18 mmol/L Low 20-31 [facility] Comment on above: Performed By: #### A NAX, IFX, PHEP, FKLLC, PE #### [address] [address] Game Author: Bala Skelton MD Creatinine [Mass/Vol] 2.11 mg/dL High 0.50-0.90 [facility] Comment on above: Performed By: #### A NAX, IFX, PHEP, FKLLC, PE #### [address] [address] Game Author: Bala Skelton MD GFR, Amer 30 mL/min Low >60 [facility] Comment on above: Performed By: #### A NAX, IFX, PHEP, FKLLC, PE #### [address] [address] Game Author: Bala Skelton MD GFR,non Amer 25 mL/min Low >60 [facility] Comment on above: Performed By: #### A NAX, IFX, PHEP, FKLLC, PE #### [facility] [address] [place] [address] Game Author: Bala Skelton MD Potassium [Moles/Vol] 5.0 mmol/L Normal 3.7-5.3 [facility] Comment on above: Performed By: #### A NAX, IFX, PHEP, FKLLC, PE #### [facility] [address] [place], [place] [phone] Game Author: Bala Skelton MD Sodium [Moles/Vol] 128 mmol/L Low 135-144 [facility] Comment on above: Performed By: #### A NAX, IFX, PHEP, FKLLC, PE #### [facility] [address] [place] [address] [phone] Game Author: Bala Skelton MD Urea nitrogen [Mass/Vol] 38 mg/dL High 6-20 [facility] Comment on above: Performed By: #### A NAX, IFX, PHEP, FKLLC, PE #### [facility] [address] [place] [address] [phone] Game Author: Bala Skelton MD Basic Metabolic Panelon 07-07 Anion gap [Moles/Vol] 16 mmol/L 9 - 17 mmol/L [facility] Calcium [Mass/Vol] 8.2 mg/dL Low 8.6 - 10. 4 mg/dL [facility] Chloride [Moles/Vol] 95 mmol/L Low 98 - 10 7 mmol/L [facility] CO2 [Moles/Vol] 17 mmol/L Low 20 - 31 mmol/L [facility] Creatinine [Mass/Vol] 2.35 mg/dL High 0.5 - 0.9 mg/dL [facility] GFR 27 mL/min Low 60 - PI NF mL/min [facility] [employer] GFR Non- 22 mL/min Low 60 - PINF mL/min [facility] GFR/1.73 sq M.predicted MDRD (S/P/Bld) [Vol rate/Area] [facility] Comment on above: Average GFR for 50-5 9 years old: 93 mL/min/1.73sq m Chronic Kidney Disease: <60 mL/min/1.73sq m Kidney failure: <15 mL/min/1.73sq m eGFR calculated using average adult body mass. Additional eGFR calculator available at: http://www.[employer]/multiple_crcl_2012.htm Glucose [Mass/Vol] 439 mg/dL Critically high 70 - 99 mg/d L [facility] Interpretation and review of laboratory results Abnormal [facility] Potassium [Moles/Vol] 5.2 mmol/L 3.7 - 5.3 mmol/L [facility] Sodium [Moles/Vol] 128 mmol/L Low 135 - 144 mmol/L [facility] Urea nitrogen (BldV) [Mass/Vol] 37 mg/dL High 6 - 20 mg/dL [facility] Basic Metabolic Panel w/ Ref romulo to MGon 07-20-2022 Anion gap [Moles/Vol] 13 mmol/L 9 - 17 mmol/L [facility] Calcium [Mass/Vol] 8.4 mg/dL Low 8.6 - 10. 4 mg/dL [facility] Chloride [Moles/Vol] 100 mmol/L 98 - 10 7 mmol/L [facility] CO2 [Moles/Vol] 18 mmol/L Low 20 - 31 mmol/L [facility] Creatinine [Mass/Vol] 1.37 mg/dL High 0.5 - 0.9 mg/dL [facility] [employer] GFR 49 mL/min Low 60 - PI NF mL/min [facility] [employer] GFR Non- 41 mL/min Low 60 - PINF mL/min [facility] [employer] GFR/1.73 sq M.predicted MDRD (S/P/Bld) [Vol rate/Area] [facility] Comment on above: Average GFR for 50-5 9 years old: 93 mL/min/1.73sq m Chronic Kidney Disease: <60 mL/min/1.73sq m Kidney failure: <15 mL/min/1.73sq m eGFR calculated using average adult body mass. Additional eGFR calculator available at: http://www.[employer]/multiple_crcl_2012.htm Glucose [Mass/Vol] 184 mg/dL High 70 - 99 mg/dL [facility] [employer] Interpretation and review of laboratory results Abnormal [facility] [employer] Potassium [Moles/Vol] 3.8 mmol/L 3.7 - 5.3 mmol/L [facility] Sodium [Moles/Vol] 131 mmol/L Low 135 - 144 mmol/L [facility] [employer] Urea nitrogen (BldV) [Mass/Vol] 27 mg/dL High 6 - 20 mg/dL [facility]ENTER[facility]rio DistributorsUT [facility] [employer] Anion gap [Moles/Vol] 13 mmol/L 9 - 17 mmol/L [facility] [employer] Calcium [Mass/Vol] 8.7 mg/dL 8.6 - 10. 4 mg/dL [facility] Chloride [Moles/Vol] 97 mmol/L Low 98 - 10 7 mmol/L [facility] [employer] CO2 [Moles/Vol] 18 mmol/L Low 20 - 31 mmol/L [facility] [employer] Creatinine [Mass/Vol] 1.62 mg/dL High 0.5 - 0.9 mg/dL [facility] [employer] GFR 41 mL/min Low 60 - PI NF mL/min [facility] [employer] GFR Non- 34 mL/min Low 60 - PINF mL/min [facility] GFR/1.73 sq M.predicted MDRD (S/P/Bld) [Vol rate/Area] [facility] Comment on above: Average GFR for 50-5 9 years old: 93 mL/min/1.73sq m Chronic Kidney Disease: <60 mL/min/1.73sq m Kidney failure: <15 mL/min/1.73sq m eGFR calculated using average adult body mass. Additional eGFR calculator available at: http://www.[employer]/multiple_crcl_2012.htm Glucose [Mass/Vol] 360 mg/dL High 70 - 99 mg/dL [facility] Potassium [Moles/Vol] 5.1 mmol/L 3.7 - 5.3 mmol/L [facility] Sodium [Moles/Vol] 128 mmol/L Low 135 - 144 mmol/L [facility] [employer] Urea nitrogen (BldV) [Mass/Vol] 32 mg/dL High 6 - 20 mg/dL [facility] Anion gap [Moles/Vol] 14 mmol/L 9 - 17 mmol/L [facility] [employer] Calcium [Mass/Vol] 8.2 mg/dL Low 8.6 - 10. 4 mg/dL [facility] [employer] Chloride [Moles/Vol] 96 mmol/L Low 98 - 10 7 mmol/L [facility] CO2 [Moles/Vol] 17 mmol/L Low 20 - 31 mmol/L [facility] [employer] Creatinine [Mass/Vol] 1.68 mg/dL High 0.5 - 0.9 mg/dL [facility] [employer] GFR 39 mL/min Low 60 - PI NF mL/min [facility] [employer] GFR Non- 32 mL/min Low 60 - PINF mL/min [facility] [employer] GFR/1.73 sq M.predicted MDRD (S/P/Bld) [Vol rate/Area] [facility] Comment on above: Average GFR for 50-5 9 years old: 93 mL/min/1.73sq m Chronic Kidney Disease: <60 mL/min/1.73sq m Kidney failure: <15 mL/min/1.73sq m eGFR calculated using average adult body mass. Additional eGFR calculator available at: http://www.[employer]/multiple_crcl_2012.htm Interpretation and review of laboratory results Abnormal [facility] Potassium [Moles/Vol] 4.4 mmol/L 3.7 - 5.3 mmol/L [facility] Sodium [Moles/Vol] 127 mmol/L Low 135 - 144 mmol/L [facility] [employer] Urea nitrogen (BldV) [Mass/Vol] 33 mg/dL High 6 - 20 mg/dL [facility] Anion gap [Moles/Vol] 15 mmol/L 9 - 17 mmol/L [facility] Calcium [Mass/Vol] 8.5 mg/dL Low 8.6 - 10. 4 mg/dL [facility] Chloride [Moles/Vol] 95 mmol/L Low 98 - 10 7 mmol/L [facility] CO2 [Moles/Vol] 18 mmol/L Low 20 - 31 mmol/L [facility] Creatinine [Mass/Vol] 2.11 mg/dL High 0.5 - 0.9 mg/dL [facility] GFR 30 mL/min Low 60 - PI NF mL/min [facility] GFR Non- 25 mL/min Low 60 - PINF mL/min [facility] GFR/1.73 sq M.predicted MDRD (S/P/Bld) [Vol rate/Area] [facility] Comment on above: Average GFR for 50-5 9 years old: 93 mL/min/1.73sq m Chronic Kidney Disease: <60 mL/min/1.73sq m Kidney failure: <15 mL/min/1.73sq m eGFR calculated using average adult body mass. Additional eGFR calculator available at: http://www.[employer]/multiple_crcl_2011.htm Glucose [Mass/Vol] 416 mg/dL Critically high 70 - 99 mg/d L [facility] Interpretation and review of laboratory results Abnormal [facility] Potassium [Moles/Vol] 5.0 mmol/L 3.7 - 5.3 mmol/L [facility] Sodium [Moles/Vol] 128 mmol/L Low 135 - 144 mmol/L [facility] Urea nitrogen (BldV) [Mass/Vol] 38 mg/dL High 6 - 20 mg/dL [facility] Basic Metabolic Profon 07-20 Glucose [Mass/Vol] 439 mg/dL Critically high 70-99 M [facility] Comment on above: Performed By: #### A NAX, IFX, PHEP, FKLLC, PE #### [address] [id number] Game Author: Bala Skelton MD (cont.) [facility] Comment on above: Result Comment: Aver age GFR for 50-59 years old: 93 mL/min/1.73sq m Chronic Kidney Disease: <60 mL/min/1.73sq m Kidney failure: <15 mL/min/1.73sq m eGFR calculated using average adult body mass. Additional eGFR calculator available at: http://www.[employer]/multiple_crcl_2012.htm Performed By: #### A NAX, IFX, PHEP, FKLLC, PE #### [address] [address] Game Author: Bala Skelton MD Anion gap [Moles/Vol] 16 mmol/L Normal 9-17 [facility] Comment on above: Performed By: #### A NAX, IFX, PHEP, FKLLC, PE #### [address] [id number] Game Author: Bala Skelton MD Calcium [Mass/Vol] 8.2 mg/dL Low 8.6-10.4 [facility] Comment on above: Performed By: #### A NAX, IFX, PHEP, FKLLC, PE #### [address] [address] Game Author: Bala Skelton MD Chloride [Moles/Vol] 95 mmol/L Low 98-107 [facility] Comment on above: Performed By: #### A NAX, IFX, PHEP, FKLLC, PE #### [address] [address] Game Author: Bala Skelton MD CO2 [Moles/Vol] 17 mmol/L Low 20-31 [facility] Comment on above: Performed By: #### A NAX, IFX, PHEP, FKLLC, PE #### [facility] [address] [place] [address] Game Author: Bala Skelton MD Creatinine [Mass/Vol] 2.35 mg/dL High 0.50-0.90 [facility] Comment on above: Performed By: #### A NAX, IFX, PHEP, FKLLC, PE #### [facility] [address] [place] [address] Game Author: Bala Skelton MD GFR, Amer 27 mL/min Low >60 [facility] Comment on above: Performed By: #### A NAX, IFX, PHEP, FKLLC, PE #### [address] [address] Game Author: Bala Skelton MD GFR,non Amer 22 mL/min Low >60 [facility] Comment on above: Performed By: #### A NAX, IFX, PHEP, FKLLC, PE #### [address] [address] Game Author: Bala Skelton MD Potassium [Moles/Vol] 5.2 mmol/L Normal 3.7-5.3 [facility] Comment on above: Performed By: #### A NAX, IFX, PHEP, FKLLC, PE #### [address] [address] Game Author: Bala Skelton MD Sodium [Moles/Vol] 128 mmol/L Low 135-144 [facility] Comment on above: Performed By: #### A NAX, IFX, PHEP, FKLLC, PE #### [facility] [employer] [address] [place] [address] Game Author: Bala Skelton MD Urea nitrogen [Mass/Vol] 37 mg/dL High 6-20 [facility] Comment on above: Performed By: #### A NAX, IFX, PHEP, FKLLC, PE #### [facility] [address] [place], [place] [phone] Game Author: Bala Skelton MD C3on 07-20-2022 C3 209 mg/dL High 90-180 [facility] Comment on above: Performed By: #### A NAX, IFX, PHEP, FKLLC, PE #### [facility] [address] [place], [place] [phone] Game Author: Bala Skelton MD C3 Complementon 07-20-2022 Complement C3 209 mg/dL High 90 - 180 mg/dL [facility] C4on 07-20-2022 C4 41 mg/dL High 10-40 [facility] Comment on above: Performed By: #### A NAX, IFX, PHEP, FKLLC, PE #### [facility] [address] [place], [place] [id number] Game Author: Bala Skelton MD C4 Complementon 07-20-2022 Complement C4 41 mg/dL High 10 - 40 mg/dL [facility] CBC with Auto Differentialon 07-20-2022 Absolute Eos # 0.00 [facility] Absolute Immature Granulocyte 0.07 [facility] Absolute Lymph # 0.46 Low [facility] Absolute Woods # 0.33 [facility] Basophils (Bld) [#/Vol] 0.00 10*3/uL [facility] Basophils/100 WBC (Bld) 0 % 0 - 2 % [facility] Eosinophils/100 WBC (Bld) 0 % Low 1 - 4 % [facility] Hematocrit (Bld) [Volume fraction] 33.3 % Low 36.3 - 47.1 % [facility] Hemoglobin (Bld) [Mass/Vol] 11.0 g/dL Low 11.9 - 15.1 g/dL [facility] Immature granulocytes/100 WBC (Bld) 1 % High 0 [facility] Interpretation and review of laboratory results Abnormal [facility] Lymphocytes/100 WBC (Bld) 7 % Low 24 - 44 % [facility] MCH (RBC) [Entitic mass] 28.6 pg 25.2 - 33.5 pg [facility] MCHC (RBC) [Mass/Vol] 33.0 g/dL 28.4 - 34.8 g/dL [facility] MCV (RBC) [Entitic vol] 86.7 fL 82.6 - 102.9 fL [facility] Monocytes/100 WBC (Bld) 5 % 1 - 7 % [facility] Morphology Bran (Bld) [Interp] Normal [facility] NRBC Automated 0.0 0.0 per 100 WBC [facility] Platelet distribution width (Bld) [Ratio] 13.8 % 11.8 - 14.4 % [facility] Platelets (Bld) [#/Vol] See Reflexed IPF Result [facility] RBC (Bld) [#/Vol] 3.84 10*6/uL Low 3.95 - 5.1 1 m/uL [facility] Segmented neutrophils/100 WBC (Bld) 87 % High 36 - 66 % [facility] Segs Absolute 5.74 [facility] WBC (Bld) [#/Vol] 6.6 10*3/uL [facility] SE COURS [facility] Absolute Eos # 0.00 [facility] Absolute Immature Granulocyte 0.10 [facility] Absolute Lymph # 0.31 Low [facility] URS [facility] Absolute Woods # 0.41 [facility] RS [facility] Basophils (Bld) [#/Vol] 0.00 10*3/uL [facility] Basophils/100 WBC (Bld) 0 % 0 - 2 % [facility] Eosinophils/100 WBC (Bld) 0 % Low 1 - 4 % [facility] Hematocrit (Bld) [Volume fraction] 32.4 % Low 36.3 - 47.1 % [facility] Hemoglobin (Bld) [Mass/Vol] 11.0 g/dL Low 11.9 - 15.1 g/dL [facility] Immature granulocytes/100 WBC (Bld) 1 % High 0 [facility] Interpretation and review of laboratory results Abnormal [facility] Lymphocytes/100 WBC (Bld) 3 % Low 24 - 44 % [facility] MCH (RBC) [Entitic mass] 29.4 pg 25.2 - 33.5 pg [facility] MCHC (RBC) [Mass/Vol] 34.0 g/dL 28.4 - 34.8 g/dL [facility] MCV (RBC) [Entitic vol] 86.6 fL 82.6 - 102.9 fL [facility] Monocytes/100 WBC (Bld) 4 % 1 - 7 % [facility] Morphology Bran (Bld) [Interp] Normal [facility] NRBC Automated 0.0 0.0 per 100 WBC [facility] Platelet distribution width (Bld) [Ratio] 13.6 % 11.8 - 14.4 % [facility] Platelet mean volume (Bld) [Entitic vol] 10.4 fL 8.1 - 13.5 fL [facility] Platelets (Bld) [#/Vol] 252 10*3/uL [facility] RBC (Bld) [#/Vol] 3.74 10*6/uL Low 3.95 - 5.1 1 m/uL [facility] Segmented neutrophils/100 WBC (Bld) 92 % High 36 - 66 % [facility] Segs Absolute 9.38 High [facility] WBC (Bld) [#/Vol] 10.2 10*3/uL [facility] Absolute Eos # 0.12 [facility] Absolute Immature Granulocyte 0.12 [facility] Absolute Lymph # 0.49 Low [facility] Absolute Woods # 0.00 Low [facility] Basophils (Bld) [#/Vol] 0.00 10*3/uL [facility] Basophils/100 WBC (Bld) 0 % 0 - 2 % [facility] Eosinophils/100 WBC (Bld) 1 % 1 - 4 % [facility] Hematocrit (Bld) [Volume fraction] 31.3 % Low 36.3 - 47.1 % [facility] Hemoglobin (Bld) [Mass/Vol] 10.6 g/dL Low 11.9 - 15.1 g/dL [facility] Immature granulocytes/100 WBC (Bld) 1 % High 0 [facility] Interpretation and review of laboratory results Abnormal [facility] Lymphocytes/100 WBC (Bld) 4 % Low 24 - 44 % [facility] MCH (RBC) [Entitic mass] 29.3 pg 25.2 - 33.5 pg [facility] MCHC (RBC) [Mass/Vol] 33.9 g/dL 28.4 - 34.8 g/dL [facility] MCV (RBC) [Entitic vol] 86.5 fL 82.6 - 102.9 fL [facility] Monocytes/100 WBC (Bld) 0 % Low 1 - 7 % [facility] Morphology Bran (Bld) [Interp] Normal [facility] NRBC Automated 0.0 0.0 per 100 WBC [facility] Platelet distribution width (Bld) [Ratio] 13.5 % 11.8 - 14.4 % [facility] Platelet mean volume (Bld) [Entitic vol] 10.2 fL 8.1 - 13.5 fL [facility] Platelets (Bld) [#/Vol] 280 10*3/uL [facility] RBC (Bld) [#/Vol] 3.62 10*6/uL Low 3.95 - 5.1 1 m/uL [facility] Segmented neutrophils/100 WBC (Bld) 94 % High 36 - 66 % [facility] Segs Absolute 11.57 High [facility] WBC (Bld) [#/Vol] 12.3 10*3/uL High [facility] CBC with Diffon 07-20-2022 Abs. Basophil 0.00 k/uL Normal 0.0-0.2 [facility] Comment on above: Performed By: #### A NAX, IFX, PHEP, FKLLC, PE #### [address] [address] Game Author: Bala Skelton MD Abs.Imm.Granulocyte 0.07 k/uL Normal 0.00-0.30 [facility] Comment on above: Performed By: #### A NAX, IFX, PHEP, FKLLC, PE #### [place] [address] Game Author: Bala Skelton MD Abs.Neutrophil (Seg) 5.74 k/uL Normal 1.8-7.7 [facility] Comment on above: Performed By: #### A NAX, IFX, PHEP, FKLLC, PE #### [place] [address] Game Author: Bala Skelton MD Basophils/100 WBC (Bld) 0 % Normal 0-2 [facility] Comment on above: Performed By: #### A NAX, IFX, PHEP, FKLLC, PE #### [place] [address] Game Author: Bala Skelton MD Eosinophils (Bld) [#/Vol] 0.00 10*3/uL Normal 0.0-0.4 [facility] Comment on above: Performed By: #### A NAX, IFX, PHEP, FKLLC, PE #### [address] [address] Game Author: Bala Skelton MD Eosinophils/100 WBC (Bld) 0 % Low 1-4 [facility] Comment on above: Performed By: #### A NAX, IFX, PHEP, FKLLC, PE #### [address] [address] Game Author: Bala Skelton MD Immature granulocytes/100 WBC (Bld) 1 % High 0 [facility] Comment on above: Performed By: #### A NAX, IFX, PHEP, FKLLC, PE #### [address] [address] Game Author: Bala Skelton MD Lymphocytes (Bld) [#/Vol] 0.46 10*3/uL Low 1.0-4.8 [facility] Comment on above: Performed By: #### A NAX, IFX, PHEP, FKLLC, PE #### [address] [address] Game Author: Bala Skelton MD Lymphocytes/100 WBC (Bld) 7 % Low 24-44 [facility] Comment on above: Performed By: #### A NAX, IFX, PHEP, FKLLC, PE #### [address] [address] Game Author: Bala Skelton MD Monocytes (Bld) [#/Vol] 0.33 10*3/uL Normal 0.1-0.8 [facility] Comment on above: Performed By: #### A NAX, IFX, PHEP, FKLLC, PE #### [address] [address] Game Author: Bala Skelton MD Monocytes/100 WBC (Bld) 5 % Normal 1-7 [facility] Comment on above: Performed By: #### A NAX, IFX, PHEP, FKLLC, PE #### [address] [address] Game Author: Bala Skelton MD Morphology Bran (Bld) [Interp] Normal Normal [facility] Comment on above: Performed By: #### A NAX, IFX, PHEP, FKLLC, PE #### [address] [address] Game Author: Bala Skelton MD Neutrophil (Seg) 87 % High 36-66 [facility] Comment on above: Performed By: #### A NAX, IFX, PHEP, FKLLC, PE #### [facility] [employer] [address] [place] [address] Game Author: Bala Skelton MD Erythrocyte distribution width (RBC) [Ratio] 13.8 % Normal 11.8-14.4 [facility] Comment on above: Performed By: #### A NAX, IFX, PHEP, FKLLC, PE #### [facility] [employer] [address] [place] [address] Game Author: Bala Skelton MD Hematocrit (Bld) [Volume fraction] 33.3 % Low 36.3-47.1 [facility] Comment on above: Performed By: #### A NAX, IFX, PHEP, FKLLC, PE #### [facility] [employer] [address] [place] [address] Game Author: Bala Skelton MD Hemoglobin (Bld) [Mass/Vol] 11.0 g/dL Low 11.9-15.1 [facility] Comment on above: Performed By: #### A NAX, IFX, PHEP, FKLLC, PE #### [facility] [employer] [address] [place] [address] Game Author: Bala Skelton MD MCH (RBC) [Entitic mass] 28.6 pg Normal 25.2-33.5 [facility] Comment on above: Performed By: #### A NAX, IFX, PHEP, FKLLC, PE #### [facility] [employer] [address] [place] [address] Game Author: Bala Skelton MD MCHC (RBC) [Mass/Vol] 33.0 g/dL Normal 28.4-34.8 [facility] Comment on above: Performed By: #### A NAX, IFX, PHEP, FKLLC, PE #### [address] [address] Game Author: Bala Skelton MD MCV (RBC) [Entitic vol] 86.7 fL Normal 82.6-102.9 [facility] Comment on above: Performed By: #### A NAX, IFX, PHEP, FKLLC, PE #### [address] [address] Game Author: Bala Skelton MD NRBC Automated 0.0 per 100 WBC Normal 0.0 [facility] Comment on above: Performed By: #### A NAX, IFX, PHEP, FKLLC, PE #### [address] [address] Game Author: Bala Skelton MD Platelet Count See Reflexed IPF Result Normal 138-453 [facility] Comment on above: Performed By: #### A NAX, IFX, PHEP, FKLLC, PE #### [address] [address] Game Author: Bala Skelton MD RBC (Bld) [#/Vol] 3.84 10*6/uL Low 3.95-5.11 [facility] Comment on above: Performed By: #### A NAX, IFX, PHEP, FKLLC, PE #### [address] [address] Game Author: Bala Skelton MD WBC (Bld) [#/Vol] 6.6 10*3/uL Normal 3.5-11.3 [facility] Comment on above: Performed By: #### A NAX, IFX, PHEP, FKLLC, PE #### [address] [address] Game Author: Bala Skelton MD Abs. Basophil 0.00 k/uL Normal 0.0-0.2 [facility] Comment on above: Performed By: #### A NAX, IFX, PHEP, FKLLC, PE #### [address] [address] Game Author: Bala Skelton MD Abs.Imm.Granulocyte 0.10 k/uL Normal 0.00-0.30 [facility] Comment on above: Performed By: #### A NAX, IFX, PHEP, FKLLC, PE #### [address] [address] Game Author: Bala Skelton MD Abs.Neutrophil (Seg) 9.38 k/uL High 1.8-7.7 [facility] Comment on above: Performed By: #### A NAX, IFX, PHEP, FKLLC, PE #### [address] [address] Game Author: Bala Skelton MD Basophils/100 WBC (Bld) 0 % Normal 0-2 [facility] Comment on above: Performed By: #### A NAX, IFX, PHEP, FKLLC, PE #### [address] [address] Game Author: Bala Skelton MD Eosinophils (Bld) [#/Vol] 0.00 10*3/uL Normal 0.0-0.4 [facility] Comment on above: Performed By: #### A NAX, IFX, PHEP, FKLLC, PE #### [address] [address] Game Author: Bala Skelton MD Eosinophils/100 WBC (Bld) 0 % Low 1-4 [facility] Comment on above: Performed By: #### A NAX, IFX, PHEP, FKLLC, PE #### [address] [address] Game Author: Bala Skelton MD Immature granulocytes/100 WBC (Bld) 1 % High 0 [facility] Comment on above: Performed By: #### A NAX, IFX, PHEP, FKLLC, PE #### [address] [address] Game Author: Bala Skelton MD Lymphocytes (Bld) [#/Vol] 0.31 10*3/uL Low 1.0-4.8 [facility] Comment on above: Performed By: #### A NAX, IFX, PHEP, FKLLC, PE #### [address] [address] Game Author: Bala Skelton MD Lymphocytes/100 WBC (Bld) 3 % Low 24-44 [facility] Comment on above: Performed By: #### A NAX, IFX, PHEP, FKLLC, PE #### [address] [id number] Game Author: Bala Skelton MD Monocytes (Bld) [#/Vol] 0.41 10*3/uL Normal 0.1-0.8 [facility] Comment on above: Performed By: #### A NAX, IFX, PHEP, FKLLC, PE #### [address] [address] Game Author: Bala Skelton MD Monocytes/100 WBC (Bld) 4 % Normal 1-7 [facility] Comment on above: Performed By: #### A NAX, IFX, PHEP, FKLLC, PE #### [address] [address] Game Author: Bala Skelton MD Morphology Bran (Bld) [Interp] Normal Normal [facility] Comment on above: Performed By: #### A NAX, IFX, PHEP, FKLLC, PE #### [address] [address] Game Author: Bala Skelton MD Neutrophil (Seg) 92 % High 36-66 [facility] Comment on above: Performed By: #### A NAX, IFX, PHEP, FKLLC, PE #### [address] [address] Game Author: Bala Skelton MD Erythrocyte distribution width (RBC) [Ratio] 13.6 % Normal 11.8-14.4 [facility] Comment on above: Performed By: #### A NAX, IFX, PHEP, FKLLC, PE #### [address] [address] Game Author: Bala Skeltno MD Hematocrit (Bld) [Volume fraction] 32.4 % Low 36.3-47.1 [facility] Comment on above: Performed By: #### A NAX, IFX, PHEP, FKLLC, PE #### [address] [address] Game Author: Bala Skelton MD Hemoglobin (Bld) [Mass/Vol] 11.0 g/dL Low 11.9-15.1 [facility] Comment on above: Performed By: #### A NAX, IFX, PHEP, FKLLC, PE #### [address] [address] Game Author: Bala Skelton MD MCH (RBC) [Entitic mass] 29.4 pg Normal 25.2-33.5 [facility] Comment on above: Performed By: #### A NAX, IFX, PHEP, FKLLC, PE #### [address] [address] Game Author: Bala Skelton MD MCHC (RBC) [Mass/Vol] 34.0 g/dL Normal 28.4-34.8 [facility] Comment on above: Performed By: #### A NAX, IFX, PHEP, FKLLC, PE #### [address] [address] Game Author: Bala Skelton MD MCV (RBC) [Entitic vol] 86.6 fL Normal 82.6-102.9 [facility] Comment on above: Performed By: #### A NAX, IFX, PHEP, FKLLC, PE #### [address] [address] Game Author: Bala Skelton MD NRBC Automated 0.0 per 100 WBC Normal 0.0 [facility] Comment on above: Performed By: #### A NAX, IFX, PHEP, FKLLC, PE #### [place] [address] Game Author: Bala Skelton MD Platelet mean volume (Bld) [Entitic vol] 10.4 fL Normal 8.1-13.5 [facility] Comment on above: Performed By: #### A NAX, IFX, PHEP, FKLLC, PE #### [address] [address] Game Author: Bala Skelton MD Platelets (Bld) [#/Vol] 252 10*3/uL Normal 138-453 [facility] Comment on above: Performed By: #### A NAX, IFX, PHEP, FKLLC, PE #### [address] [address] Game Author: Bala Skelton MD RBC (Bld) [#/Vol] 3.74 10*6/uL Low 3.95-5.11 [facility] Comment on above: Performed By: #### A NAX, IFX, PHEP, FKLLC, PE #### [address] [address] Game Author: Bala Skelton MD WBC (Bld) [#/Vol] 10.2 10*3/uL Normal 3.5-11.3 [facility] Comment on above: Performed By: #### A NAX, IFX, PHEP, FKLLC, PE #### [place] [address] Game Author: Bala Skelton MD Abs. Basophil 0.00 k/uL Normal 0.0-0.2 [facility] Comment on above: Performed By: #### A NAX, IFX, PHEP, FKLLC, PE #### [place] [address] Game Author: Bala Skelton MD Abs.Imm.Granulocyte 0.12 k/uL Normal 0.00-0.30 [facility] Comment on above: Performed By: #### A NAX, IFX, PHEP, FKLLC, PE #### [place] [address] Game Author: Bala Skelton MD Abs.Neutrophil (Seg) 11.57 k/uL High 1.8-7.7 [facility] Comment on above: Performed By: #### A NAX, IFX, PHEP, FKLLC, PE #### [place] [address] Game Author: Bala Skelton MD Basophils/100 WBC (Bld) 0 % Normal 0-2 [facility] Comment on above: Performed By: #### A NAX, IFX, PHEP, FKLLC, PE #### [address] [address] Game Author: Bala Skelton MD Eosinophils (Bld) [#/Vol] 0.12 10*3/uL Normal 0.0-0.4 [facility] Comment on above: Performed By: #### A NAX, IFX, PHEP, FKLLC, PE #### [address] [address] Game Author: Bala Skelton MD Eosinophils/100 WBC (Bld) 1 % Normal 1-4 [facility] Comment on above: Performed By: #### A NAX, IFX, PHEP, FKLLC, PE #### [address] [address] Game Author: Bala Skelton MD Immature granulocytes/100 WBC (Bld) 1 % High 0 [facility] Comment on above: Performed By: #### A NAX, IFX, PHEP, FKLLC, PE #### [address] [address] Game Author: Bala Skelton MD Lymphocytes (Bld) [#/Vol] 0.49 10*3/uL Low 1.0-4.8 [facility] Comment on above: Performed By: #### A NAX, IFX, PHEP, FKLLC, PE #### [address] [address] Game Author: Bala Skelton MD Lymphocytes/100 WBC (Bld) 4 % Low 24-44 [facility] Comment on above: Performed By: #### A NAX, IFX, PHEP, FKLLC, PE #### [address] [address] Game Author: Bala Skelton MD Monocytes (Bld) [#/Vol] 0.00 10*3/uL Low 0.1-0.8 [facility] Comment on above: Performed By: #### A NAX, IFX, PHEP, FKLLC, PE #### [address] [address] Game Author: Bala Skelton MD Monocytes/100 WBC (Bld) 0 % Low 1-7 [facility] Comment on above: Performed By: #### A NAX, IFX, PHEP, FKLLC, PE #### [address] [address] Game Author: Bala Skelton MD Morphology Bran (Bld) [Interp] Normal Normal [facility] Comment on above: Performed By: #### A NAX, IFX, PHEP, FKLLC, PE #### [address] [address] Game Author: Bala Skelton MD Neutrophil (Seg) 94 % High 36-66 [facility] Comment on above: Performed By: #### A NAX, IFX, PHEP, FKLLC, PE #### [address] [address] Game Author: Bala Skelton MD Erythrocyte distribution width (RBC) [Ratio] 13.5 % Normal 11.8-14.4 [facility] Comment on above: Performed By: #### A NAX, IFX, PHEP, FKLLC, PE #### [address] [address] Game Author: Bala Skelton MD Hematocrit (Bld) [Volume fraction] 31.3 % Low 36.3-47.1 [facility] Comment on above: Performed By: #### A NAX, IFX, PHEP, FKLLC, PE #### [address] [address] Game Author: Bala Skelton MD Hemoglobin (Bld) [Mass/Vol] 10.6 g/dL Low 11.9-15.1 [facility] Comment on above: Performed By: #### A NAX, IFX, PHEP, FKLLC, PE #### [address] [address] Game Author: Bala Skelton MD MCH (RBC) [Entitic mass] 29.3 pg Normal 25.2-33.5 [facility] Comment on above: Performed By: #### A NAX, IFX, PHEP, FKLLC, PE #### [address] [address] Game Author: Bala Skelton MD MCHC (RBC) [Mass/Vol] 33.9 g/dL Normal 28.4-34.8 [facility] Comment on above: Performed By: #### A NAX, IFX, PHEP, FKLLC, PE #### [address] [address] Game Author: Bala Skelton MD MCV (RBC) [Entitic vol] 86.5 fL Normal 82.6-102.9 [facility] Comment on above: Performed By: #### A NAX, IFX, PHEP, FKLLC, PE #### [address] [address] Game Author: Bala Skelton MD NRBC Automated 0.0 per 100 WBC Normal 0.0 [facility] Comment on above: Performed By: #### A NAX, IFX, PHEP, FKLLC, PE #### [address] [address] Game Author: Bala Skelton MD Platelet mean volume (Bld) [Entitic vol] 10.2 fL Normal 8.1-13.5 [facility] Comment on above: Performed By: #### A NAX, IFX, PHEP, FKLLC, PE #### [address] [address] Game Author: Bala Skelton MD Platelets (Bld) [#/Vol] 280 10*3/uL Normal 138-453 [facility] Comment on above: Performed By: #### A NAX, IFX, PHEP, FKLLC, PE #### [facility] [address] [place] [address] Game Author: Bala Skelton MD RBC (Bld) [#/Vol] 3.62 10*6/uL Low 3.95-5.11 [facility] Comment on above: Performed By: #### A NAX, IFX, PHEP, FKLLC, PE #### [facility] [employer] [facility] [place], [place] [id number] Game Author: Bala Skelton MD WBC (Bld) [#/Vol] 12.3 10*3/uL High 3.5-11.3 [facility] Comment on above: Performed By: #### A NAX, IFX, PHEP, FKLLC, PE #### [facility] [address] [place] [address] Game Author: Bala Skelton MD CREATININE, RANDOM URINEon 0 07-20-2022 Creatinine, Ur 67.5 mg/dL 28 - 217 mg/dL [facility] CULTURE URINEon 07-20-2022 CULTURE URINE Isolate [...] F Trimethoprim/Sulfameth oxazole <=20 S F Normal [facility] Comment on above: Performed By: #### U MICRO, ERUR #### [facility] [address] [address] [address] Delmer Rea Chloride, Random Urineon Chloride, Ur 50 mmol/L [facility] [employer] Comment on above: No normal range esta blished. Chloride,Random Uron 022 Chloride [Moles/Vol] 50 mmol/L Normal [facility] Comment on above: Result Comment: No n ormal range established. Performed By: #### A NAX, IFX, PHEP, FKLLC, PE #### [employer] [address] [place], [place] [id number] Game Author: Bala Skelton MD Creatinine, Random Urineon 0 07-20-2022 Creatinine, Ur 76.5 mg/dL 28 - 217 mg/dL [facility] [employer] Creatinine,Random Uron 07-20 Creatinine [Mass/Vol] 67.5 mg/dL Normal 28.0-217.0 [facility] Comment on above: Performed By: #### B C #### [employer] [facility] [place], [place] [id number] Game Author: Bala Skelton MD Creatinine [Mass/Vol] 76.5 mg/dL Normal 28.0-217.0 [facility] Comment on above: Performed By: #### A NAX, IFX, PHEP, FKLLC, PE #### [employer] [facility] [place], [place] [id number] Game Author: Bala Skleton MD EKG 12 LeadOrdered By: Cheryl Domínguez on 07-20-2022 Atrial Rate 105 BPM [employer] Work Phone: P Spray 8 degrees [employer] Work Phone: P-R Interval 136 ms [employer] Work Phone: Q-T Interval 344 ms [employer] Work Phone: QRS Duration 84 ms [employer] Work Phone: QTc Calculation (Bazett) 454 ms [facility] [employer] Work Phone: R Spray -15 degrees [facility] [employer] Work Phone: T Spray 13 degrees [facility] [employer] Work Phone: Ventricular Rate 105 BPM [facility]LL[facility] [employer] Work Phone: [facility] Work Phone: EKG 12 Leadon 07-20-2022 Sinus tachycardia Septal infarct (cited on or before 20-JUL-2022) Abnormal ECG When compared with ECG of 20-JUL-2022 05:40, No significant change was found [facility] Julien Hamilton MD - 07/20/2022 Sinus tachycardia Septal infarct (cited on or before 20-JUL-2022) Abnormal ECG When compared with ECG of 20-JUL-2022 05:40, No significant change was found [facility] [employer] Work Phone: Free Dolton + Lambdaon 2021 Free Dolton Lt Chains 2.91 mg/dL High 0.37-1.94 [facility] Comment on above: Performed By: #### A NAX, IFX, PHEP, FKLLC, PE #### [employer] [address] [place] [phone] Game Author: Bala Skelton MD Free Dolton/Lambda Rat 1.67 High 0.26-1.65 [facility] Comment on above: Performed By: #### A NAX, IFX, PHEP, FKLLC, PE #### [employer] [address] [place] [address] [phone] Game Author: Bala Skelton MD Free Lambda Lt Chains 1.74 mg/dL Normal 0.57-2.63 [facility] Comment on above: Performed By: #### A NAX, IFX, PHEP, FKLLC, PE #### [employer] [address] [place] [address] [phone] Game Author: Bala Skelton MD Immature Platelet Fractionon 07-20-2022 Platelet, Fluorescence Platelet clumps present, count appears adequate. [facility] Dolton/Lambda Quantitative Fr ee Light Chains, Serumon 07-20-2022 Free Dolton/Lambda Ratio 1.67 High 0.26 - 1.65 [facility] Interpretation and review of laboratory results Abnormal [facility] Dolton Free Light Chains QNT 2.91 mg/dL High 0.37 - 1.94 mg/dL [facility] Lambda Free Light Chains QNT 1.74 mg/dL 0.57 - 2.63 mg/dL [facility] Lactate, Sepsison 07-20-2022 Lactic Acid,Sep Wbld 3.8 mmol/L High 0.5-1.9 [facility] Comment on above: Performed By: #### B C #### [employer] [address] [place], [place] [id number] Game Author: Bala Skelton MD Interpretation and review of laboratory results Abnormal [facility] Lactic Acid, Sepsis, Whole Blood 3.8 mmol/L High 0.5 - 1.9 mmol/L [facility] Lactic Acidon 07-20-2022 Lactic Acid,Whole Bl 2.0 mmol/L Normal 0.7-2.1 [facility] Comment on above: Performed By: #### B C #### [employer] [address] [place] [address] [id number] Game Author: Bala Skelton MD Lactic Acid, Whole Blood 2.0 mmol/L 0.7 - 2.1 mmol/L [facility] No Panel Informationon 07-20 [facility] Interpretation and review of laboratory results Abnormal [facility] PLT, Immature Fract.on 07-20 Platelet, Fluoresc. Platelet clumps present, count appears adequate. Normal 138-453 [facility] Comment on above: Performed By: #### A NAX, IFX, PHEP, FKLLC, PE #### [facility] [address] [place] [address] Game Author: Bala Skelton MD POC Glucose Fingerstickon Glucose [Mass/Vol] 145 mg/dL High 65 - 105 mg/dL [facility] Interpretation and review of laboratory results Abnormal [facility] Glucose [Mass/Vol] 231 mg/dL High 65 - 105 mg/dL [facility] Interpretation and review of laboratory results Abnormal [facility] Glucose [Mass/Vol] 393 mg/dL High 65 - 105 mg/dL [facility] Interpretation and review of laboratory results Abnormal [facility] Glucose [Mass/Vol] 405 mg/dL Critically high 65 - 1 05 mg/dL [facility] Comment on above: Critical Noted Interpretation and review of laboratory results Abnormal [facility] Glucose [Mass/Vol] 375 mg/dL High 65 - 105 mg/dL [facility] Interpretation and review of laboratory results Abnormal [facility] Glucose [Mass/Vol] 415 mg/dL Critically high 65 - 1 05 mg/dL [facility] Interpretation and review of laboratory results Abnormal [facility] Procalcitoninon 07-20-2022 Procalcitonin 48.54 ng/mL High <0.09 [facility] Comment on above: Result Comment: Suspected [...] entered into the Change in Procalcitonin Calculator (www.ccrnap-ihq-zcwcentpgu.Viewster) to determine the patient's Mortality Risk Prognosis In healthy neonates, plasma Procalcitonin (PCT) concentrations increase gradually after , reaching peak values at about 24 hours of age then decrease to normal values below 0.5 ng/mL by 48-72 hours of age. Performed By: #### A NAX, IFX, PHEP, FKLLC, PE #### [employer] [facility] [place] [id number] Game Author: Bala Skelton MD Interpretation and review of laboratory results Abnormal [facility] Procalcitonin 48.54 ng/mL High NINF - 0.09 ng/mL [facility] Comment on above: Suspected Sepsis: <0.50 ng/mL [...] entered into the Change in Procalcitonin Calculator (www.vnoefa-hvd-uvsyvrkifr.Viewster) to determine the patient's Mortality Risk Prognosis In healthy neonates, plasma Procalcitonin (PCT) concentrations increase gradually after , reaching peak values at about 24 hours of age then decrease to normal values below 0.5 ng/mL by 48-72 hours of age. [facility] Prot. Electroph, Blon 2021 Protein [Mass/Vol] 6.3 g/dL Low 6.4-8.3 [facility] Comment on above: Performed By: #### A NAX, IFX, PHEP, FKLLC, PE #### [facility] [employer] [facility] [place], [place] [phone] Game Author: Bala Skelton MD Prot. Electrophoresis, Uron 07-20-2022 Type of Specimen .URINE Normal [facility] Comment on above: Performed By: #### A NAX, IFX, PHEP, FKLLC, PE #### [facility] [employer] [address] [place] [address] [phone] Game Author: Bala Skelton MD Protein / creatinine ratio, urineon 07-20-2022 Creatinine, Ur 75.7 mg/dL 28 - 217 mg/dL [facility] Interpretation and review of laboratory results Abnormal [facility] Protein (U) [Mass/Vol] 145 mg/dL [facility] Comment on above: No normal range esta blished. Urine Total Protein Creatinine Ratio 1.92 High 0 - 0.2 [facility] Protein, urine, randomon Protein (U) [Mass/Vol] 144 mg/dL [facility] Comment on above: No normal range esta blished. Protein,Tot,Welaka Uron 2021 Creatinine [Mass/Vol] 75.7 mg/dL Normal 28.0-217.0 [facility] Comment on above: Performed By: #### A NAX, IFX, PHEP, FKLLC, PE #### [facility] [employer] [facility] [place] [address] Game Author: Bala Skelton MD Tot Prot. Conc. 145 mg/dL Normal [facility] Comment on above: Result Comment: No n ormal range established. Performed By: #### A NAX, IFX, PHEP, FKLLC, PE #### [facility] [employer] [facility] [place] [address] Game Author: Bala Skelton MD Tot Prot. Conc. 144 mg/dL Normal [facility] Comment on above: Result Comment: No n ormal range established. Performed By: #### A NAX, IFX, PHEP, FKLLC, PE #### [facility] [address] [place] [address] [phone] Game Author: Bala Skelton MD TP/Cre Ratio 1.92 High 0.00-0.20 [facility] Comment on above: Performed By: #### A NAX, IFX, PHEP, FKLLC, PE #### [facility] [address] [place] [address] [phone] Game Author: Bala Skelton MD SODIUM, URINE, RANDOMon 07-07 Sodium (U) [Moles/Vol] mmol/L mmol/L [facility] [employer] Comment on above: No normal range esta blished. [facility] Sodium, Random Uron 07-20-20 22 Na Conc. Urine <20 Normal [facility] Comment on above: Result Comment: No n ormal range established. Performed By: #### B C #### [facility] [address] [place] [address] [phone] Game Author: Bala Skelton MD Sodium (U) [Moles/Vol] 26 mmol/L Normal [facility] Comment on above: Result Comment: No n ormal range established. Performed By: #### A NAX, IFX, PHEP, FKLLC, PE #### [facility] [address] [place] [address] [phone] Game Author: Bala Skelton MD Sodium, urine, randomon 07-07 Sodium (U) [Moles/Vol] 26 mmol/L [facility] Comment on above: No normal range esta [...] Femi Enamorado MD 07/20/22 Final result Normal [facility] 1. Possible nephrostomy at the lower pole left kidney. Correlate with any recent instrumentation. 2. Equivocal dilatation of the upper pole left kidney. No overt hydronephrosis. 3. 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 RECOMMENDATIONS: Unavailable [facility] EXAMINATION: ULTRASOUND OF THE KIDNEYS 07/20/2022 [...] nephrostomy at the lower pole left kidney. [facility] Femi Enamorado MD - 07/20/2022 EXAMINATION: [...] involving the left renal hilum. RECOMMENDATIONS: Unavailable [employer] Phone: Radiology Study observation (narrative) [facility] Phone: US RETROPERITONEAL LIMITEDOr dered By: Femi Enamorado on 07-20-2022 [facility] [employer] Phone: Urinalysis w/ Microon 2021 Epithelial cells LM Ql (Urine sed) 0 TO 2 Normal 0-5 [facility] Comment on above: Performed By: #### A NAX, IFX, PHEP, FKLLC, PE #### [employer] [address] [place] [address] [phone] Game Author: Bala Skelton MD Urine RBC's TOO NUMEROUS TO COUNT Normal 0-2 [facility] Comment on above: Performed By: #### A NAX, IFX, PHEP, FKLLC, PE #### [employer] [address] [place] [address] [phone] Game Author: Bala Skelton MD Urine WBC's 10 TO 20 Normal 0-5 [facility] Comment on above: Performed By: #### A NAX, IFX, PHEP, FKLLC, PE #### [employer] [address] [place] [address] [phone] Game Author: Bala Skelton MD Bilirubin, SemiQt,Ur Negative Normal NEG [facility] Comment on above: Performed By: #### A NAX, IFX, PHEP, FKLLC, PE #### [facility] [address] [place] [address] [phone] Game Author: Bala Skelton MD Blood, Urine LARGE Abnormal NEG [facility] Comment on above: Performed By: #### A NAX, IFX, PHEP, FKLLC, PE #### [facility] [address] [place] [phone] Game Author: Bala Skelton MD Clarity (U) Cloudy Abnormal CLEAR [facility] Comment on above: Performed By: #### A NAX, IFX, PHEP, FKLLC, PE #### [address] [address] Game Author: Bala Skelton MD Color (U) [place] Abnormal YEL [facility] Comment on above: Result Comment: INTE RPRET WITH CAUTION DUE TO INTENSE COLOR OF URINE. Performed By: #### A NAX, IFX, PHEP, FKLLC, PE #### [facility] [employer] [address] [place] [phone] Game Author: Bala Skelton MD Glucose Ql (U) 3+ Abnormal NEG [facility] Comment on above: Performed By: #### A NAX, IFX, PHEP, FKLLC, PE #### [facility] [address] [place] [address] [phone] Game Author: Bala Skelton MD Ketones Ql (U) Negative Normal NEG [facility] Comment on above: Performed By: #### A NAX, IFX, PHEP, FKLLC, PE #### [facility] [employer] [address] [place] [phone] Game Author: Bala Skelton MD Leukocyte esterase Test strip Ql (U) MODERATE Abnormal NEG [facility] Comment on above: Performed By: #### A NAX, IFX, PHEP, FKLLC, PE #### [address] [phone] Game Author: Bala Skelton MD Nitrite,Ur Negative Normal NEG [facility] Comment on above: Performed By: #### A NAX, IFX, PHEP, FKLLC, PE #### [address] [address] Game Author: Bala Skelton MD PH,Ur 5.0 Normal 5.0-8.0 [facility] Comment on above: Performed By: #### A NAX, IFX, PHEP, FKLLC, PE #### [address] [address] Game Author: Bala Skelton MD Protein Ql (U) 2+ Abnormal NEG [facility] Comment on above: Performed By: #### A NAX, IFX, PHEP, FKLLC, PE #### [address] [address] Game Author: Bala Skelton MD Spec. [place],Ur 1.022 Normal 1.005-1.030 [facility] Comment on above: Performed By: #### A NAX, IFX, PHEP, FKLLC, PE #### [address] [address] Game Author: Bala Skelton MD Urobilinogen,Ur Normal Normal NORM [facility] Comment on above: Performed By: #### A NAX, IFX, PHEP, FKLLC, PE #### [address] [address] Game Author: Bala Skelton MD Urinalysis with Microscopico n 07-20-2022 Bilirubin Urine Negative NEGATIVE [facility] Color, UA [place] Abnormal Yellow [facility] Comment on above: INTERPRET WITH CAUTI ON DUE TO INTENSE COLOR OF URINE. Epithelial Cells UA 0 TO 2 [facility] Glucose, Ur 3+ Abnormal NEGATIVE [facility] Interpretation and review of laboratory results Abnormal [facility] Ketones Ql (U) Negative NEGATIVE [facility] Leukocyte esterase Test strip Ql (U) MODERATE Abnormal NEGATIVE [facility] Nitrite, Urine Negative NEGATIVE [facility] pH, UA 5.0 5 - 8 [facility] Protein, UA 2+ Abnormal NEGATIVE [facility] RBC, UA TOO NUMEROUS TO COUNT [facility] Specific [place], UA 1.022 1.005 - 1.03 [facility] Turbidity UA Cloudy Abnormal Clear [facility] Urine Hgb LARGE Abnormal NEGATIVE [facility] Urobilinogen, Urine Normal Normal [facility] WBC, UA 10 TO 20 [facility] Venous Blood Gaseson 022 Body Temp. 37.0 Normal [facility] Comment on above: Performed By: #### V BG #### [facility] [employer] [address] [place] [address] [phone] Game Author: Bala Skelton MD Carboxy Hgb 1.4 % Normal 0-5 [facility] Comment on above: Result Comment: Reference Range: Non-Smokers 0-2% Average Smoker 2-4% Heavy Smoker <10% Performed By: #### V BG #### [employer] [address] [place] [address] [phone] Game Author: Bala Skelton MD FIO2 INFORMATION NOT PROVIDED Normal [facility] Comment on above: Performed By: #### V BG #### [facility] [employer] [address] [place] [address] [phone] Game Author: Bala Skelton MD HCO3 (Bld) [Moles/Vol] 19.6 mmol/L Low 24-30 [facility] Comment on above: Performed By: #### V BG #### [address] [address] Game Author: Bala Skelton MD Negative Base Excess 5.6 mmol/L High 0.0-2.0 [facility] Comment on above: Performed By: #### V BG #### [address] [address] Game Author: Bala Skelton MD Oxygen (Bld) [Partial pressure] 36.9 mm[Hg] Normal 30-50 [facility] Comment on above: Performed By: #### V BG #### [facility] [employer] [address] [place] [phone] Game Author: Bala Skelton MD Oxygen saturation in Blood 74.4 % Normal 60.0-85.0 [facility] Comment on above: Performed By: #### V BG #### [address] [address] Game Author: Bala Skelton MD pCO2 39.5 Normal 39-55 [facility] Comment on above: Performed By: #### V BG #### [facility] [employer] [address] [place] [phone] Game Author: Bala Skelton MD pH (Bld) 7.316 [pH] Low 7.320-7.420 [facility] Comment on above: Performed By: #### V BG #### [address] [address] Game Author: Bala Skelton MD XR CHEST PORTABLEon 07-20-20 [...] Ricarda Orozco DO 07/20/22 Final result Normal [facility] 1. Mild vascular congestion. 2. Minimal [...] related to atelectasis. No dense airspace consolidation. [facility] Phone: Radiology Study observation (narrative) [facility] Phone: XR CHEST PORTABLEOrdered By: Ricarda Orozco on 07-20-2022 [facility] Phone: Basic Metab w/rfx MGon 07-19 (cont.) Normal [facility] Comment on above: Result Comment: Aver age GFR for 50-59 years old: 93 mL/min/1.73sq m Chronic Kidney Disease: <60 mL/min/1.73sq m Kidney failure: <15 mL/min/1.73sq m eGFR calculated using average adult body mass. Additional eGFR calculator available at: http://www.Pogojo.Viewster/multiple_crcl_2012.htm Performed By: #### B MPX, CDP #### [facility] [address] [place] [phone] Game Author: Bala Skelton MD Anion gap [Moles/Vol] 14 mmol/L Normal 9-17 [facility] Comment on above: Performed By: #### B MPX, CDP #### [facility] [address] [place] [phone] Game Author: Bala Skelton MD Calcium [Mass/Vol] 8.3 mg/dL Low 8.6-10.4 [facility] Comment on above: Performed By: #### B MPX, CDP #### [facility] [employer] [address] [place] [phone] Game Author: Bala Skelton MD Chloride [Moles/Vol] 98 mmol/L Normal 98-107 [facility] Comment on above: Performed By: #### B MPX, CDP #### [facility] [employer] [address] [place] [phone] Game Author: Bala Skelton MD CO2 [Moles/Vol] 19 mmol/L Low 20-31 [facility] Comment on above: Performed By: #### B MPX, CDP #### [facility] [address] [place] [phone] Game Author: Bala Skelton MD Creatinine [Mass/Vol] 1.71 mg/dL High 0.50-0.90 [facility] Comment on above: Performed By: #### B MPX, CDP #### [facility] [address] [place] [phone] Game Author: Bala Skelton MD GFR, Amer 38 mL/min Low >60 [facility] Comment on above: Performed By: #### B MPX, CDP #### [facility] [address] [place] [phone] Game Author: Bala Skelton MD GFR,non Amer 32 mL/min Low >60 [facility] Comment on above: Performed By: #### B MPX, CDP #### [facility] [address] [place] [address] Game Author: Bala Skelton MD Glucose [Mass/Vol] 263 mg/dL High 70-99 [facility] Comment on above: Performed By: #### B MPX, CDP #### [facility] [address] [place] [phone] Game Author: Bala Skelton MD Potassium [Moles/Vol] 4.0 mmol/L Normal 3.7-5.3 [facility] Comment on above: Performed By: #### B MPX, CDP #### [facility] [employer] [address] [place] [address] Game Author: Bala Skelton MD Sodium [Moles/Vol] 131 mmol/L Low 135-144 [facility] Comment on above: Performed By: #### B MPX, CDP #### [facility] [employer] [address] [place] [phone] Game Author: Bala Skelton MD Urea nitrogen [Mass/Vol] 38 mg/dL High 6-20 [facility] Comment on above: Performed By: #### B MPX, CDP #### [facility] [employer] [address] [place] [phone] Game Author: Bala Skelton MD Basic Metabolic Panel w/ Ref romulo to MGon 07-19-2022 Anion gap [Moles/Vol] 14 mmol/L 9 - 17 mmol/L [facility] Calcium [Mass/Vol] 8.3 mg/dL Low 8.6 - 10. 4 mg/dL [facility] Chloride [Moles/Vol] 98 mmol/L 98 - 10 7 mmol/L [facility] CO2 [Moles/Vol] 19 mmol/L Low 20 - 31 mmol/L [facility] Creatinine [Mass/Vol] 1.71 mg/dL High 0.5 - 0.9 mg/dL [facility] GFR 38 mL/min Low 60 - PI NF mL/min [facility] GFR Non- 32 mL/min Low 60 - PINF mL/min [facility] GFR/1.73 sq M.predicted MDRD (S/P/Bld) [Vol rate/Area] [facility] Comment on above: Average GFR for 50-5 9 years old: 93 mL/min/1.73sq m Chronic Kidney Disease: <60 mL/min/1.73sq m Kidney failure: <15 mL/min/1.73sq m eGFR calculated using average adult body mass. Additional eGFR calculator available at: http://www.[employer] Media/multiple_crcl_2012.htm Glucose [Mass/Vol] 263 mg/dL High 70 - 99 mg/dL [facility] Interpretation and review of laboratory results Abnormal [facility] Potassium [Moles/Vol] 4.0 mmol/L 3.7 - 5.3 mmol/L [facility] Sodium [Moles/Vol] 131 mmol/L Low 135 - 144 mmol/L [facility] Urea nitrogen (BldV) [Mass/Vol] 38 mg/dL High 6 - 20 mg/dL [facility] CBC with Auto Differentialon 07-19-2022 Absolute Eos # 0.16 [facility] Absolute Immature Granulocyte 0.05 [facility] Absolute Lymph # 2.34 [facility] SECO URS [facility] Absolute Woods # 0.64 [facility] Basophils (Bld) [#/Vol] 0.03 10*3/uL [facility] Basophils/100 WBC (Bld) 0 % 0 - 2 % [facility] Eosinophils/100 WBC (Bld) 2 % 1 - 4 % [facility] Hematocrit (Bld) [Volume fraction] 30.2 % Low 36.3 - 47.1 % [facility] Hemoglobin (Bld) [Mass/Vol] 10.4 g/dL Low 11.9 - 15.1 g/dL [facility] Immature granulocytes/100 WBC (Bld) 1 % High 0 [facility] Interpretation and review of laboratory results Abnormal [facility] Lymphocytes/100 WBC (Bld) 33 % 24 - 43 % [facility] MCH (RBC) [Entitic mass] 29.7 pg 25.2 - 33.5 pg [facility] MCHC (RBC) [Mass/Vol] 34.4 g/dL 28.4 - 34.8 g/dL [facility] MCV (RBC) [Entitic vol] 86.3 fL 82.6 - 102.9 fL [facility] Monocytes/100 WBC (Bld) 9 % 3 - 12 % [facility] NRBC Automated 0.0 0.0 per 100 WBC [facility] Platelet distribution width (Bld) [Ratio] 13.6 % 11.8 - 14.4 % [facility] Platelet mean volume (Bld) [Entitic vol] 11.2 fL 8.1 - 13.5 fL [facility] Platelets (Bld) [#/Vol] 410 10*3/uL [facility] RBC (Bld) [#/Vol] 3.50 10*6/uL Low 3.95 - 5.1 1 m/uL [facility] Segmented neutrophils/100 WBC (Bld) 54 % 36 - 65 % [facility] Segs Absolute 3.83 [facility] WBC (Bld) [#/Vol] 7.1 10*3/uL [facility] CBC with Diffon 07-19-2022 Abs. Basophil 0.03 k/uL Normal 0.00-0.20 [facility] Comment on above: Performed By: #### B ERYN HAQ #### [facility] [employer] [facility] [place] [address] Game Author: Bala Skelton MD Abs.Imm.Granulocyte 0.05 k/uL Normal 0.00-0.30 [facility] Comment on above: Performed By: #### B MPX, CDP #### [address] [address] Game Author: Bala Skelton MD Abs.Neutrophil (Seg) 3.83 k/uL Normal 1.50-8.10 [facility] Comment on above: Performed By: #### B MPX, CDP #### [address] [address] Game Author: Bala Skelton MD Basophils/100 WBC (Bld) 0 % Normal 0-2 [facility] Comment on above: Performed By: #### B MPX, CDP #### [place] [address] Game Author: Bala Skelton MD Eosinophils (Bld) [#/Vol] 0.16 10*3/uL Normal 0.00-0.44 [facility] Comment on above: Performed By: #### B MPX, CDP #### [address] [address] Game Author: Bala Skelton MD Eosinophils/100 WBC (Bld) 2 % Normal 1-4 [facility] Comment on above: Performed By: #### B MPX, CDP #### [address] [address] Game Author: Bala Skelton MD Erythrocyte distribution width (RBC) [Ratio] 13.6 % Normal 11.8-14.4 [facility] Comment on above: Performed By: #### B MPX, CDP #### [facility] [employer] [address] [place] [phone] Game Author: Bala Skelton MD Hematocrit (Bld) [Volume fraction] 30.2 % Low 36.3-47.1 [facility] Comment on above: Performed By: #### B MPX, CDP #### [facility] [employer] [facility] [place] [address] Game Author: Bala Skelton MD Hemoglobin (Bld) [Mass/Vol] 10.4 g/dL Low 11.9-15.1 [facility] Comment on above: Performed By: #### B MPX, CDP #### [facility] [employer] [address] [place] [phone] Game Author: Bala Skelton MD Immature granulocytes/100 WBC (Bld) 1 % High 0 [facility] Comment on above: Performed By: #### B MPX, CDP #### [facility] [employer] [address] [place] [phone] Game Author: Bala Skelton MD Lymphocytes (Bld) [#/Vol] 2.34 10*3/uL Normal 1.10-3.70 [facility] Comment on above: Performed By: #### B MPX, CDP #### [facility] [employer] [address] [place] [phone] Game Author: Bala Skelton MD Lymphocytes/100 WBC (Bld) 33 % Normal 24-43 [facility] Comment on above: Performed By: #### B MPX, CDP #### [facility] [employer] [address] [place] [address] Game Author: Bala Skelton MD MCH (RBC) [Entitic mass] 29.7 pg Normal 25.2-33.5 [facility] Comment on above: Performed By: #### B MPX, CDP #### [facility] [employer] [address] [place] [phone] Game Author: Bala Skelton MD MCHC (RBC) [Mass/Vol] 34.4 g/dL Normal 28.4-34.8 [facility] Comment on above: Performed By: #### B MPX, CDP #### [address] [address] Game Author: Bala Skelton MD MCV (RBC) [Entitic vol] 86.3 fL Normal 82.6-102.9 [facility] Comment on above: Performed By: #### B MPX, CDP #### [address] [address] Game Author: Bala Skelton MD Monocytes (Bld) [#/Vol] 0.64 10*3/uL Normal 0.10-1.20 [facility] Comment on above: Performed By: #### B MPX, CDP #### [address] [address] Game Author: Bala Skelton MD Monocytes/100 WBC (Bld) 9 % Normal 3-12 [facility] Comment on above: Performed By: #### B MPX, CDP #### [address] [address] Game Author: Bala Skelton MD Neutrophil (Seg) 54 % Normal 36-65 [facility] Comment on above: Performed By: #### B MPX, CDP #### [address] [address] Game Author: Bala Skelton MD NRBC Automated 0.0 per 100 WBC Normal 0.0 [facility] Comment on above: Performed By: #### B MPX, CDP #### [address] [address] Game Author: Bala Skelton MD Platelet mean volume (Bld) [Entitic vol] 11.2 fL Normal 8.1-13.5 [facility] Comment on above: Performed By: #### B MPX, CDP #### [address] [address] Game Author: Bala Skelton MD Platelets (Bld) [#/Vol] 410 10*3/uL Normal 138-453 [facility] Comment on above: Performed By: #### B MPX, CDP #### [facility] [place] [address] Game Author: Bala Skelton MD RBC (Bld) [#/Vol] 3.50 10*6/uL Low 3.95-5.11 [facility] Comment on above: Performed By: #### B MPX, CDP #### [facility] [place] [address] Game Author: Bala Skelton MD WBC (Bld) [#/Vol] 7.1 10*3/uL Normal 3.5-11.3 [facility] Comment on above: Performed By: #### B MPX, CDP #### [facility] [address] [place] [phone] Game Author: Bala Skelton MD Cult,Urineon 07-19-2022 Cult,Urine Specimen Description .CLEAN CATCH URINE Culture NO SIGNIFICANT GROWTH Report Status FINAL 07/19/2022 Normal [facility] Comment on above: Performed By: #### A NAX, IFX, PHEP, FKLLC, PE #### [facility] [employer] [address] [place] [phone] Game Author: Bala Skelton MD Culture, Urineon 07-19-2022 Bacteria identified Cx Nom (U) NO SIGNIFICANT GROWTH [facility] Polyplex Specimen Description .CLEAN CATCH URINE [facility] [employer] [facility] IR GUIDED NEPHROSTOMY CATH P LACEMENT LEFTon [...] SEDATION 07/19/2022 HISTORY: ORDERING SYSTEM PROVIDED HISTORY: [employer] TECHNOLOGIST PROVIDED HISTORY: staghorn Is the patient [...] the procedure including risks, benefits, and alternatives. [place] protocol was followed. The patient's flank was [...] into the urinary bladder using a 4 Polish Kumpe the catheter; the Glidewire was exchanged [...] puncture of the lower pole calyx, 4 Polish Kumpe the catheter manipulation and glidewire extension into the urinary bladder. Subsequent images show the nephroureteral stent in satisfactory position. IMPRESSION: Successful percutaneous left nephroureteral stent placement via lower pole, past a large staghorn calculus, with distal pigtail tip position in the urinary bladder, as above. Findings were discussed with KASH CLAY at 4:09 pm on 07/19/2022. [employer] Work Phone: Radiology Study observation (narrative) [employer] Work Phone: IR GUIDED NEPHROSTOMY CATH P EDWARD LEFTOrdered By: Noman Mullen on 07-19-2022 [employer] Work Phone: POC Glucose Fingerstickon Glucose [Mass/Vol] 278 mg/dL High 65 - 105 mg/dL [facility] [employer] Interpretation and review of laboratory results Abnormal [facility] [employer] [facility] Glucose [Mass/Vol] 231 mg/dL High 65 - 105 mg/dL [facility] Interpretation and review of laboratory results Abnormal [facility] Glucose [Mass/Vol] 301 mg/dL High 65 - 105 mg/dL [facility] [employer] Interpretation and review of laboratory results Abnormal [facility] Glucose [Mass/Vol] 283 mg/dL High 65 - 105 mg/dL [facility] Interpretation and review of laboratory results Abnormal [facility] [employer] [facility] PTon 07-19-2022 INR Coag (PPP) [Relative time] 0.9 {INR} Normal [facility] Comment on above: Result Comment: Therapeutic Range: Moderate Anticoagulant Intensity: INR = 2.0-3.0 High Anticoagulant Intensity: INR = 2.5-3.5 Performed By: #### A NAX, IFX, PHEP, FKLLC, PE #### [employer] [address] [place] [phone] Game Author: Bala Skelton MD PT Coag (PPP) [Time] 9.8 s Normal 9.1-12.3 [facility] Comment on above: Performed By: #### A NAX, IFX, PHEP, FKLLC, PE #### [employer] [address] [place] [address] [phone] Game Author: Bala Skelton MD Protime-INRon 07-19-2022 INR Coag (Bld) [Relative time] 0.9 {INR} [facility] Comment on above: Therapeutic Range: Moderate Anticoagulant Intensity: INR = 2.0-3.0 High Anticoagulant Intensity: INR = 2.5-3.5 PT Coag (PPP) [Time] 9.8 s [facility] Urinalysis w/ Microon 2021 Bilirubin, SemiQt,Ur Negative Normal NEG [facility] Comment on above: Performed By: #### A NAX, IFX, PHEP, FKLLC, PE #### [facility] [employer] [address] [place] [phone] Game Author: Bala Skelton MD Blood, Urine LARGE Abnormal NEG [facility] Comment on above: Performed By: #### A NAX, IFX, PHEP, FKLLC, PE #### [address] [address] Game Author: Bala Skelton MD Casts 2 TO 5 HYALINE Normal 0-8 [facility] Comment on above: Result Comment: Refe rence range defined for non-centrifuged specimen. Performed By: #### A NAX, IFX, PHEP, FKLLC, PE #### [facility] [employer] [address] [place] [phone] Game Author: Bala Skelton MD Clarity (U) Turbid Abnormal CLEAR [facility] Comment on above: Performed By: #### A NAX, IFX, PHEP, FKLLC, PE #### [facility] [employer] [address] [place] [phone] Game Author: Bala Skelton MD Color (U) Yellow Normal YEL [facility] Comment on above: Performed By: #### A NAX, IFX, PHEP, FKLLC, PE #### [facility] [employer] [address] [place] [phone] Game Author: Bala Skelton MD Epithelial cells LM Ql (Urine sed) 0 TO 2 Normal 0-5 [facility] Comment on above: Performed By: #### A NAX, IFX, PHEP, FKLLC, PE #### [facility] [employer] [address] [place] [phone] Game Author: Bala Skelton MD Glucose Ql (U) 1+ Abnormal NEG [facility] Comment on above: Performed By: #### A NAX, IFX, PHEP, FKLLC, PE #### [facility] [address] [place] [phone] Game Author: Bala Skelton MD Ketones Ql (U) Negative Normal NEG [facility] Comment on above: Performed By: #### A NAX, IFX, PHEP, FKLLC, PE #### [address] [address] Game Author: Bala Skelton MD Leukocyte esterase Test strip Ql (U) LARGE Abnormal NEG [facility] Comment on above: Performed By: #### A NAX, IFX, PHEP, FKLLC, PE #### [address] [address] Game Author: Bala Skelton MD Nitrite,Ur Negative Normal NEG [facility] Comment on above: Performed By: #### A NAX, IFX, PHEP, FKLLC, PE #### [facility] [address] [place] [phone] Game Author: Bala Skelton MD PH,Ur 5.0 Normal 5.0-8.0 [facility] Comment on above: Performed By: #### A NAX, IFX, PHEP, FKLLC, PE #### [facility] [address] [place] [address] Game Author: Bala Skelton MD Protein Ql (U) 1+ Abnormal NEG [facility] Comment on above: Performed By: #### A NAX, IFX, PHEP, FKLLC, PE #### [facility] [employer] [address] [place] [phone] Game Author: Bala Skelton MD Spec. [place],Ur 1.017 Normal 1.005-1.030 [facility] Comment on above: Performed By: #### A NAX, IFX, PHEP, FKLLC, PE #### [facility] [employer] [address] [place] [phone] Game Author: Bala Skelton MD Urine RBC's 10 TO 20 Normal 0-4 [facility] Comment on above: Result Comment: Refe rence range defined for non-centrifuged specimen. Performed By: #### A NAX, IFX, PHEP, FKLLC, PE #### [address] [address] Game Author: Bala Skelton MD Urine WBC's TOO NUMEROUS TO COUNT Normal 0-5 [facility] Comment on above: Performed By: #### A NAX, IFX, PHEP, FKLLC, PE #### [facility] [employer] [address] [place] [phone] Game Author: Bala Skelton MD Urobilinogen,Ur Normal Normal NORM [facility] Comment on above: Performed By: #### A NAX, IFX, PHEP, FKLLC, PE #### [facility] [employer] [address] [place] [phone] Game Author: Bala Skelton MD Urinalysis with Microscopico n 07-19-2022 Bilirubin Urine Negative NEGATIVE [facility] Casts UA 2 TO 5 HYALINE Reference range defined for non-centrifuged specimen. [facility] Color, UA Yellow Yellow [facility] Epithelial Cells UA 0 TO 2 [facility] Glucose, Ur 1+ Abnormal NEGATIVE [facility] Interpretation and review of laboratory results Abnormal [facility] Ketones Ql (U) Negative NEGATIVE [facility] Leukocyte esterase Test strip Ql (U) LARGE Abnormal NEGATIVE [facility] Nitrite, Urine Negative NEGATIVE [facility] pH, UA 5.0 5 - 8 [facility] Protein, UA 1+ Abnormal NEGATIVE [facility] RBC, UA 10 TO 20 [facility] Comment on above: Reference range defi rodger for non-centrifuged specimen. Specific [place], UA 1.017 1.005 - 1.03 [facility] Turbidity UA Turbid Abnormal Clear [facility] Urine Hgb LARGE Abnormal NEGATIVE [facility] Urobilinogen, Urine Normal Normal [facility] WBC, UA TOO NUMEROUS TO COUNT [facility] APTTon 07-18-2022 aPTT Coag (Bld) [Time] 22.8 s Normal 20.5-30.5 [facility] Comment on above: Result Comment: IV Heparin Therapy Range: 48.6-77.8 Performed By: #### A NAX, IFX, PHEP, FKLLC, PE #### [employer] [address] [place] [address] Game Author: Bala Skelton MD aPTT Coag (Bld) [Time] 22.8 s [facility] Comment on above: IV Heparin Therapy Range: 48.6-77.8 Basic Metab w/rfx MGon 07-18 (cont.) Normal [facility] Comment on above: Result Comment: Aver age GFR for 50-59 years old: 93 mL/min/1.73sq m Chronic Kidney Disease: <60 mL/min/1.73sq m Kidney failure: <15 mL/min/1.73sq m eGFR calculated using average adult body mass. Additional eGFR calculator available at: http://www.Pogojo.Viewster/multiple_crcl_2012.htm Performed By: #### A NAX, IFX, PHEP, FKLLC, PE #### [employer] [facility] [place] [address] Game Author: Bala Skelton MD Anion gap [Moles/Vol] 13 mmol/L Normal 9-17 [facility] Comment on above: Performed By: #### A NAX, IFX, PHEP, FKLLC, PE #### [address] [address] Game Author: Bala Skelton MD Calcium [Mass/Vol] 9.4 mg/dL Normal 8.6-10.4 [facility] Comment on above: Performed By: #### A NAX, IFX, PHEP, FKLLC, PE #### [address] [address] Game Author: Bala Skelton MD Chloride [Moles/Vol] 100 mmol/L Normal 98-107 [facility] Comment on above: Performed By: #### A NAX, IFX, PHEP, FKLLC, PE #### [address] [address] Game Author: Bala Skelton MD CO2 [Moles/Vol] 24 mmol/L Normal 20-31 [facility] Comment on above: Performed By: #### A NAX, IFX, PHEP, FKLLC, PE #### [address] [address] Game Author: Bala Skelton MD Creatinine [Mass/Vol] 1.65 mg/dL High 0.50-0.90 [facility] Comment on above: Performed By: #### A NAX, IFX, PHEP, FKLLC, PE #### [address] [address] Game Author: Bala Skelton MD GFR, Amer 40 mL/min Low >60 [facility] Comment on above: Performed By: #### A NAX, IFX, PHEP, FKLLC, PE #### [facility] [employer] [address] [place] [phone] Game Author: Bala Skelton MD GFR,non Amer 33 mL/min Low >60 [facility] Comment on above: Performed By: #### A NAX, IFX, PHEP, FKLLC, PE #### [address] [address] Game Author: Bala Skelton MD Glucose [Mass/Vol] 239 mg/dL High 70-99 [facility] Comment on above: Performed By: #### A NAX, IFX, PHEP, FKLLC, PE #### [facility] [employer] [address] [place] [address] Game Author: Bala Skelton MD Potassium [Moles/Vol] 4.9 mmol/L Normal 3.7-5.3 [facility] Comment on above: Performed By: #### A NAX, IFX, PHEP, FKLLC, PE #### [address] [address] Game Author: Bala Skelton MD Sodium [Moles/Vol] 137 mmol/L Normal 135-144 [facility] Comment on above: Performed By: #### A NAX, IFX, PHEP, FKLLC, PE #### [address] [address] Game Author: Bala Skelton MD Urea nitrogen [Mass/Vol] 33 mg/dL High 6-20 [facility] Comment on above: Performed By: #### A NAX, IFX, PHEP, FKLLC, PE #### [facility] [employer] [address] [place] [phone] Game Author: Bala Skelton MD Basic Metabolic Panel w/ Ref romulo to MGon 07-18-2022 Anion gap [Moles/Vol] 13 mmol/L 9 - 17 mmol/L [facility] Calcium [Mass/Vol] 9.4 mg/dL 8.6 - 10. 4 mg/dL [facility] Chloride [Moles/Vol] 100 mmol/L 98 - 10 7 mmol/L [facility] CO2 [Moles/Vol] 24 mmol/L 20 - 31 mmol/L [facility] Creatinine [Mass/Vol] 1.65 mg/dL High 0.5 - 0.9 mg/dL [facility] GFR 40 mL/min Low 60 - PI NF mL/min [facility] GFR Non- 33 mL/min Low 60 - PINF mL/min [facility] GFR/1.73 sq M.predicted MDRD (S/P/Bld) [Vol rate/Area] [facility] Comment on above: Average GFR for 50-5 9 years old: 93 mL/min/1.73sq m Chronic Kidney Disease: <60 mL/min/1.73sq m Kidney failure: <15 mL/min/1.73sq m eGFR calculated using average adult body mass. Additional eGFR calculator available at: http://www.[employer]/multiple_crcl_2012.htm Glucose [Mass/Vol] 239 mg/dL High 70 - 99 mg/dL [facility] Interpretation and review of laboratory results Abnormal [facility] Potassium [Moles/Vol] 4.9 mmol/L 3.7 - 5.3 mmol/L [facility] Sodium [Moles/Vol] 137 mmol/L 135 - 144 mmol/L [facility] Urea nitrogen (BldV) [Mass/Vol] 33 mg/dL High 6 - 20 mg/dL [facility] CBC AUTO DIFFon 07-18-2022 BASO # 0.0 103/ul Normal 0.0-0.1 [facility] Comment on above: Performed By: #### C BC #### [facility] [address] [address] [address] Delmer Rea Basophils/100 WBC (Bld) 0.2 % Normal 0.2-2.0 [facility] Comment on above: Performed By: #### C BC #### [facility] [address] [address] [address] Delmer Rea EO # 0.1 103/ul Normal 0.0-0.7 [facility] Comment on above: Performed By: #### C BC #### [facility] [address] [place] [address] Dr. Delmer Rea Eosinophils/100 WBC (Bld) 0.7 % Critically low 0.9-7.0 [facility] Comment on above: Performed By: #### C BC #### [facility] [address] [place] [address] Dr. Delmer Rea Erythrocyte distribution width (RBC) [Ratio] 13.1 % Normal 11.0-15.0 [facility] Comment on above: Performed By: #### C BC #### [facility] [address] [place] [address] Dr. Delmer Rea Hematocrit (Bld) [Volume fraction] 36.9 % Normal 36.0-48.0 [facility] Comment on above: Performed By: #### C BC #### [facility] [address] [place] [address] Dr. Delmer Rea Hemoglobin (Bld) [Mass/Vol] 12.5 g/dL Normal 12.0-16.0 [facility] Comment on above: Performed By: #### C BC #### [facility] [address] [place] [address] Dr. Delmer Rea IG # 0.08 10e3/ul Critically high 0.00-0.03 [facility] Comment on above: Performed By: #### C BC #### [facility] [address] [place] [address] Dr. Delmer Rea IG % 0.6 % Critically high 0.0-0.5 [facility] Comment on above: Performed By: #### C BC #### [facility] [address] [place] [address] Dr. Delemr Rea LYMPH # 1.5 103/ul Normal 1.2-3.8 [facility] Comment on above: Performed By: #### C BC #### [facility] [address] [address] [address] Delmer Rea Lymphocytes/100 WBC (Bld) 11.0 % Critically low 20.5-60.0 [facility] Comment on above: Performed By: #### C BC #### [facility] [address] [address] [address] Delmer Rea MANUAL DIFF REQ NO Normal [facility] Comment on above: Performed By: #### C BC #### [facility] [address] [address] [address] Delmer Rea MCH (RBC) [Entitic mass] 29.0 pg Normal 26.7-34.0 [facility] Comment on above: Performed By: #### C BC #### [facility] [address] [place] [address] Dr. Delmer Rea MCHC (RBC) [Mass/Vol] 33.9 g/dL Normal 29.9-35.2 [facility] Comment on above: Performed By: #### C BC #### [facility] [address] [place] [address] Dr. Delmer Rea MCV (RBC) [Entitic vol] 85.6 fL Normal 81.0-99.0 [facility] Comment on above: Performed By: #### C BC #### [facility] [address] [place] [address] Dr. Delmer Rea MONO # 0.8 103/ul Normal 0.3-0.8 [facility] Comment on above: Performed By: #### C BC #### [facility] [address] [place] [address] Dr. Delmer Rea Monocytes/100 WBC (Bld) 5.9 % Normal 1.7-12.0 [facility] Comment on above: Performed By: #### C BC #### [facility] [address] [place] [address] Dr. Delmer Rea NEUT # 11.2 103/ul Critically high 1.4-6.5 [facility] Comment on above: Performed By: #### C BC #### [facility] [address] [address] [address] Delmer Rea Neutrophils/100 WBC (Bld) 81.6 % Critically high 43.0-75.0 [facility] Comment on above: Performed By: #### C BC #### [facility] [address] [address] [address] Delmer Rea Platelet mean volume (Bld) [Entitic vol] 10.3 fL Normal 9.5-13.5 [facility] Comment on above: Performed By: #### C BC #### [facility] [address] [address] [address] Delmer Rea PLT 362 103/ul Normal 150-450 [facility] Comment on above: Performed By: #### C BC #### [facility] [address] [address] [address] Delmer Rea RBC 4.31 106/ul Normal 4.20-5.40 [facility] Comment on above: Performed By: #### C BC #### [facility] [address] [address] [address] Delmer Rea WBC 13.7 103/ul Critically high 4.0-11.0 [facility] Comment on above: Performed By: #### C BC #### [facility] [address] [address] [address] Delmer Rea CBC with Auto Differentialon 07-18-2022 Absolute Eos # 0.08 [facility] Absolute Immature Granulocyte 0.08 [facility] Absolute Lymph # 2.13 [facility] Absolute Woods # 0.84 [facility] Basophils (Bld) [#/Vol] 0.04 10*3/uL [facility] Basophils/100 WBC (Bld) 0 % 0 - 2 % [facility] Eosinophils/100 WBC (Bld) 1 % 1 - 4 % [facility] Hematocrit (Bld) [Volume fraction] 35.4 % Low 36.3 - 47.1 % [facility] Hemoglobin (Bld) [Mass/Vol] 11.8 g/dL Low 11.9 - 15.1 g/dL [facility] Immature granulocytes/100 WBC (Bld) 1 % High 0 [facility] Interpretation and review of laboratory results Abnormal [facility] Lymphocytes/100 WBC (Bld) 17 % Low 24 - 43 % [facility] MCH (RBC) [Entitic mass] 28.6 pg 25.2 - 33.5 pg [facility] MCHC (RBC) [Mass/Vol] 33.3 g/dL 28.4 - 34.8 g/dL [facility] MCV (RBC) [Entitic vol] 85.7 fL 82.6 - 102.9 fL [facility] Monocytes/100 WBC (Bld) 7 % 3 - 12 % [facility] NRBC Automated 0.0 0.0 per 100 WBC [facility] Platelet distribution width (Bld) [Ratio] 13.2 % 11.8 - 14.4 % [facility] Platelet mean volume (Bld) [Entitic vol] 10.4 fL 8.1 - 13.5 fL [facility] Platelets (Bld) [#/Vol] 339 10*3/uL [facility] RBC (Bld) [#/Vol] 4.13 10*6/uL 3.95 - 5.1 1 m/uL [facility] Segmented neutrophils/100 WBC (Bld) 74 % High 36 - 65 % [facility] Segs Absolute 9.11 High [facility] WBC (Bld) [#/Vol] 12.3 10*3/uL High [facility] CBC with Diffon 07-18-2022 Abs. Basophil 0.04 k/uL Normal 0.00-0.20 [facility] Comment on above: Performed By: #### A NAX, IFX, PHEP, FKLLC, PE #### [facility] [employer] [facility] [place] [address] Game Author: Bala Skelton MD Abs.Imm.Granulocyte 0.08 k/uL Normal 0.00-0.30 [facility] Comment on above: Performed By: #### A NAX, IFX, PHEP, FKLLC, PE #### [address] [address] Game Author: Bala Skelton MD Abs.Neutrophil (Seg) 9.11 k/uL High 1.50-8.10 [facility] Comment on above: Performed By: #### A NAX, IFX, PHEP, FKLLC, PE #### [place] [address] Game Author: Bala Skelton MD Basophils/100 WBC (Bld) 0 % Normal 0-2 [facility] Comment on above: Performed By: #### A NAX, IFX, PHEP, FKLLC, PE #### [place] [address] Game Author: Bala Skelton MD Eosinophils (Bld) [#/Vol] 0.08 10*3/uL Normal 0.00-0.44 [facility] Comment on above: Performed By: #### A NAX, IFX, PHEP, FKLLC, PE #### [place] [address] Game Author: Bala Skelton MD Eosinophils/100 WBC (Bld) 1 % Normal 1-4 [facility] Comment on above: Performed By: #### A NAX, IFX, PHEP, FKLLC, PE #### [place] [address] Game Author: Bala Skelton MD Erythrocyte distribution width (RBC) [Ratio] 13.2 % Normal 11.8-14.4 [facility] Comment on above: Performed By: #### A NAX, IFX, PHEP, FKLLC, PE #### [place] [address] Game Author: Bala Skelton MD Hematocrit (Bld) [Volume fraction] 35.4 % Low 36.3-47.1 [facility] Comment on above: Performed By: #### A NAX, IFX, PHEP, FKLLC, PE #### [address] [address] Game Author: Bala Skelton MD Hemoglobin (Bld) [Mass/Vol] 11.8 g/dL Low 11.9-15.1 [facility] Comment on above: Performed By: #### A NAX, IFX, PHEP, FKLLC, PE #### [address] [address] Game Author: Bala Skelton MD Immature granulocytes/100 WBC (Bld) 1 % High 0 [facility] Comment on above: Performed By: #### A NAX, IFX, PHEP, FKLLC, PE #### [place] [address] Game Author: Bala Skelton MD Lymphocytes (Bld) [#/Vol] 2.13 10*3/uL Normal 1.10-3.70 [facility] Comment on above: Performed By: #### A NAX, IFX, PHEP, FKLLC, PE #### [place] [address] Game Author: Bala Skelton MD Lymphocytes/100 WBC (Bld) 17 % Low 24-43 [facility] Comment on above: Performed By: #### A NAX, IFX, PHEP, FKLLC, PE #### [place] [address] Game Author: Bala Skelton MD MCH (RBC) [Entitic mass] 28.6 pg Normal 25.2-33.5 [facility] Comment on above: Performed By: #### A NAX, IFX, PHEP, FKLLC, PE #### [address] [address] Game Author: Bala Skelton MD MCHC (RBC) [Mass/Vol] 33.3 g/dL Normal 28.4-34.8 [facility] Comment on above: Performed By: #### A NAX, IFX, PHEP, FKLLC, PE #### [address] [address] Game Author: Bala Skelton MD MCV (RBC) [Entitic vol] 85.7 fL Normal 82.6-102.9 [facility] Comment on above: Performed By: #### A NAX, IFX, PHEP, FKLLC, PE #### [address] [address] Game Author: Bala Skelton MD Monocytes (Bld) [#/Vol] 0.84 10*3/uL Normal 0.10-1.20 [facility] Comment on above: Performed By: #### A NAX, IFX, PHEP, FKLLC, PE #### [address] [address] Game Author: Bala Skelton MD Monocytes/100 WBC (Bld) 7 % Normal 3-12 [facility] Comment on above: Performed By: #### A NAX, IFX, PHEP, FKLLC, PE #### [address] [address] Game Author: Bala Skelton MD Neutrophil (Seg) 74 % High 36-65 [facility] Comment on above: Performed By: #### A NAX, IFX, PHEP, FKLLC, PE #### [address] [address] Game Author: Bala Skelton MD NRBC Automated 0.0 per 100 WBC Normal 0.0 [facility] Comment on above: Performed By: #### A NAX, IFX, PHEP, FKLLC, PE #### [address] [address] Game Author: Bala Skelton MD Platelet mean volume (Bld) [Entitic vol] 10.4 fL Normal 8.1-13.5 [facility] Comment on above: Performed By: #### A NAX, IFX, PHEP, FKLLC, PE #### [facility] [employer] [address] [place] [address] Game Author: Bala Skelton MD Platelets (Bld) [#/Vol] 339 10*3/uL Normal 138-453 [facility] Comment on above: Performed By: #### A NAX, IFX, PHEP, FKLLC, PE #### [address] [address] Game Author: Bala Skelton MD RBC (Bld) [#/Vol] 4.13 10*6/uL Normal 3.95-5.11 [facility] Comment on above: Performed By: #### A NAX, IFX, PHEP, FKLLC, PE #### [address] [address] Game Author: Bala Skelton MD WBC (Bld) [#/Vol] 12.3 10*3/uL High 3.5-11.3 [facility] Comment on above: Performed By: #### A NAX, IFX, PHEP, FKLLC, PE #### [address] [address] Game Author: Bala Skelton MD CT ABD/PELVIS WO CONon [...] MARAH ALCANTAR Date: 2022-07-18 12:01 Normal [facility] Covid-19 PCR (CVDTB)on 07-07 SARS-CoV-2 (COVID-19) RNA KASI+probe Ql (Unsp spec) Not detected Normal NOT DETECTED [facility] Comment on above: Result Comment: [...] for this test is supported by the [place] of Health and Human Service's declaration that [...] DLDL, CON, LIPID, T7, CMP, TSH #### [facility] [address] [place] [address] Dr. Delmer Rea ER URINE PROFILEon 2 Bilirubin Ql (U) Negative Normal NEGATIVE [facility] Comment on above: Performed By: #### U MICRO, ERUR #### [facility] [address] [place] [address] Dr. Delmer Rea Clarity (U) SL CLOUDY Abnormal CLEAR [facility] Comment on above: Performed By: #### U MICRO, ERUR #### [facility] [address] [place] [address] Dr. Delmer Rea Color (U) LT. YELLOW Normal YELLOW [facility] Comment on above: Performed By: #### U MICRO, ERUR #### [facility] [address] [place] [address] Dr. Delmer Rea ERUAHD A micrscopic examination will be performed if indicated. Normal [facility] Comment on above: Performed By: #### U MICRO, ERUR #### [facility] [address] [place] [address] Dr. Delmer Rea Glucose Ql (U) 1000 mg/dl Abnormal NEGATIVE [facility] Comment on above: Performed By: #### U MICRO, ERUR #### [facility] [address] [place] [address] Dr. Delmer Rea Hemoglobin Ql (U) LARGE Abnormal NEGATIVE [facility] Comment on above: Performed By: #### U MICRO, ERUR #### [facility] [address] [place], [place] [id number] Dr. Delmer Rea Ketones Ql (U) Negative Normal NEGATIVE [facility] Comment on above: Performed By: #### U MICRO, ERUR #### [facility] [address] [address] [address] Delmer Rea LEUKOCYTES SMALL Abnormal NEGATIVE [facility] Comment on above: Performed By: #### U MICRO, ERUR #### [facility] [address] [address] [address] Delmer Rea Nitrite Ql (U) Positive Abnormal NEGATIVE [facility] Comment on above: Performed By: #### U MICRO, ERUR #### [facility] [address] [address] [address] Delmer Rea pH (U) 5.5 [pH] Normal 5-9 [facility] Comment on above: Performed By: #### U MICRO, ERUR #### [facility] [address] [place] [address] Dr. Delmer Rea SPEC GRAVITY 1.020 Normal 1.005-<=1.025 [facility] Comment on above: Performed By: #### U MICRO, ERUR #### [facility] [address] [address] [address] Delmer Rea UA PROTEIN TRACE Normal NEGATIVE/ TRACE [facility] Comment on above: Performed By: #### U MICRO, ERUR #### [facility] [address] [address] [address] Delmer Rea UR MICRO IND INDICATED Normal [facility] Comment on above: Performed By: #### U MICRO, ERUR #### [facility] [address] [address] [address] Delmer Rea Urobilinogen Qn (U) 0.2 {Juanita'U}/dL Normal 0.2 - 1. 0 [facility] Comment on above: Performed By: #### U MICRO, ERUR #### [facility] [address] [place] [address] Dr. Delmer Rea No Panel Informationon 07-18 [facility] POC Glucose Fingerstickon Glucose [Mass/Vol] 227 mg/dL High 65 - 105 mg/dL [facility] Interpretation and review of laboratory results Abnormal [facility] Glucose [Mass/Vol] 189 mg/dL High 65 - 105 mg/dL [facility] Interpretation and review of laboratory results Abnormal [facility] POCT glucoseOrdered By: Jason Swenson on 07-18-2022 Glucose [Mass/Vol] 189 mg/dL [facility] Interpretation and review of laboratory results Normal [facility] PROF CHEM 8 (BAS METB)on Anion gap [Moles/Vol] 13.6 mmol/L Normal [facility] Comment on above: Performed By: #### U MICRO, ERUR #### [facility] [address] [address] [address] Delmer Rea Calcium [Mass/Vol] 9.6 mg/dL Normal 8.5-10.1 [facility] Comment on above: Performed By: #### U MICRO, ERUR #### [facility] [address] [address] [address] Delmer Rea Chloride [Moles/Vol] 98 mmol/L Normal 98-107 [facility] Comment on above: Performed By: #### U MICRO, ERUR #### [facility] [address] [address] [address] Delmer Rea CO2 [Moles/Vol] 26.0 mmol/L Normal 21.0-32.0 [facility] Comment on above: Performed By: #### U MICRO, ERUR #### [facility] [address] [address] [address] Delmer Rea Creatinine [Mass/Vol] 1.45 mg/dL Critically high 0.55-1.02 [facility] Comment on above: Performed By: #### U MICRO, ERUR #### [facility] [address] [address] [address] Delmer Rea EGFR-AF NEPALESE 46 mL/min/1.73m2 Critically low >=60 [facility] Comment on above: Performed By: #### U MICRO, ERUR #### [facility] [address] [address] [address] Delmer Rea EGFR-NON AF NEPALESE 38 mL/min/1.73m2 Critically low >=60 [facility] Comment on above: Performed By: #### U MICRO, ERUR #### [facility] [address] [address] [address] Delmer Rea Glucose [Mass/Vol] 314 mg/dL Critically high 74-106 [facility] Comment on above: Performed By: #### U MICRO, ERUR #### [facility] [address] [address] [address] Delmer Rea Potassium [Moles/Vol] 4.6 mmol/L Normal 3.5-5.1 [facility] Comment on above: Result Comment: spec imen slightly hemolyzed Performed By: #### U MICRO, ERUR #### [facility] [address] [address] [address] Delmer Rea Sodium [Moles/Vol] 133 mmol/L Critically low 136-145 [facility] Comment on above: Performed By: #### U MICRO, ERUR #### [facility] [address] [address] [address] Delmer Rea Urea nitrogen [Mass/Vol] 35.0 mg/dL Critically high 7.0-18.0 [facility] Comment on above: Performed By: #### U MICRO, ERUR #### [facility] [address] [address] [address] Delmer Rea Urea nitrogen/Creatinine [Mass ratio] 24.1 mg/mg Normal [facility] Comment on above: Performed By: #### U MICRO, ERUR #### [facility] [address] [place] [address] Dr. Delmer Rea PTon 07-18-2022 INR Coag (PPP) [Relative time] 0.9 {INR} Normal [facility] Comment on above: Result Comment: Therapeutic Range: Moderate Anticoagulant Intensity: INR = 2.0-3.0 High Anticoagulant Intensity: INR = 2.5-3.5 Performed By: #### A NAX, IFX, PHEP, FKLLC, PE #### [employer] [address] [place], [place] [id number] Game Author: Bala Skelton MD PT Coag (PPP) [Time] 10.0 s Normal 9.1-12.3 [facility] Comment on above: Performed By: #### A NAX, IFX, PHEP, FKLLC, PE #### [facility] [address] [place], [place] [id number] Game Author: Bala Skelton MD Protime-INRon 07-18-2022 INR Coag (Bld) [Relative time] 0.9 {INR} [facility] Comment on above: Therapeutic Range: Moderate Anticoagulant Intensity: INR = 2.0-3.0 High Anticoagulant Intensity: INR = 2.5-3.5 PT Coag (PPP) [Time] 10 s [facility] URINE MICROSCOPIC ONLYon BACTERIA SMALL Abnormal NONE SEEN [facility] Comment on above: Performed By: #### U MICRO, ERUR #### [facility] [address] [place] [address] Dr. Delmer Rea Bacteria identified Cx Nom (U) INDICATED Normal [facility] Comment on above: Performed By: #### U MICRO, ERUR #### [facility] [address] [address] [address] Delmer Rea CAST NONE SEEN Normal NONE SEEN [facility] Comment on above: Performed By: #### U MICRO, ERUR #### [facility] [address] [address] [address] Delmer Rea Crystals LM Nom (Urine sed) NONE SEEN Normal NONE SEEN [facility] Comment on above: Performed By: #### U MICRO, ERUR #### [facility] [address] [place] [address] Dr. Delmer Rea Epithelial cells LM Ql (Urine sed) FEW Abnormal NONE SEEN /RARE [facility] Comment on above: Performed By: #### U MICRO, ERUR #### [facility] [address] [address] [address] Delmer Rea MUCOUS NONE SEEN Normal NONE SEEN [facility] Comment on above: Performed By: #### U MICRO, ERUR #### [facility] [address] [place] [address] Dr. Delmer Rea RBC 20-50 Abnormal 0-2 [facility] Comment on above: Performed By: #### U MICRO, ERUR #### [facility] [address] [address] [address] Delmer Rea WBC 10-20 Abnormal NONE SEEN [facility] Comment on above: Performed By: #### U MICRO, ERUR #### [facility] [address] [address] [address] Delmer Rea ALEXANDRE by IFAon 04-18-2022 Antinuclear Antibodies, IFA Negative Normal [facility] Comment on above: Result Comment: Nega tive <1:80 Borderline 1:80 Positive >1:80 ICAP nomenclature: AC-0 For more information about Hep-2 cell patterns use ANApatterns.org, the official website for the International Consensus on Antinuclear Antibody (ALEXANDRE) Patterns (ICAP). Performed By: #### U MICRO, ERUR #### [facility] [address] [place] [address] Dr. Delmer Rea ANTISTREPTOLYSIN O AB (ASO)o n 04-16-2022 Antistreptolysin O Ab 23.8 IU/mL Normal 0.0-200.0 [facility] Comment on above: Performed By: #### U MICRO, ERUR #### [facility] [address] [place] [address] Dr. Delmer Rea INSULINon 04-16-2022 Insulin 96.9 uIU/mL Critically high 2.6-24.9 [facility] Comment on above: Performed By: #### L IPA, DLDL, CON, LIPID, T7, CMP, TSH #### [facility] [address] [place] [address] Dr. Delmer Rea RHEUMATOID FACTORon 04-16-20 22 RA Latex Turbid. 13.5 IU/mL Normal <14.0 [facility] Comment on above: Performed By: #### L IPA, DLDL, CON, LIPID, T7, CMP, TSH #### [facility] [address] [place] [address] Dr. Delmer Rea BNPon 04-15-2022 Natriuretic peptide B (Bld) [Mass/Vol] 168.0 pg/mL Normal <=900.0 [facility] Comment on above: Performed By: #### L IPA, DLDL, CON, LIPID, T7, CMP, TSH #### [facility] [address] [place] [address] Dr. Delmer Rea CBC AUTO DIFFon 04-15-2022 BASO # 0.0 103/ul Normal 0.0-0.1 [facility] Comment on above: Performed By: #### L IPA, DLDL, CON, LIPID, T7, CMP, TSH #### [facility] [address] [place] [address] Dr. Delmer Rea Basophils/100 WBC (Bld) 0.4 % Normal 0.2-2.0 [facility] Comment on above: Performed By: #### L IPA, DLDL, CON, LIPID, T7, CMP, TSH #### [facility] [address] [place] [address] Dr. Delmer Rea EO # 0.1 103/ul Normal 0.0-0.7 [facility] Comment on above: Performed By: #### L IPA, DLDL, CON, LIPID, T7, CMP, TSH #### [facility] [address] [place] [address] Dr. Delmer Rea Eosinophils/100 WBC (Bld) 2.3 % Normal 0.9-7.0 [facility] Comment on above: Performed By: #### L IPA, DLDL, CON, LIPID, T7, CMP, TSH #### [facility] [address] [place] [address] Dr. Delmer Rea Erythrocyte distribution width (RBC) [Ratio] 11.9 % Normal 11.0-15.0 [facility] Comment on above: Performed By: #### L IPA, DLDL, CON, LIPID, T7, CMP, TSH #### [facility] [address] [place] [address] Dr. Delmer Rea Hematocrit (Bld) [Volume fraction] 37.8 % Normal 36.0-48.0 [facility] Comment on above: Performed By: #### L IPA, DLDL, CON, LIPID, T7, CMP, TSH #### [facility] [address] [place] [address] Dr. Delmer Rea Hemoglobin (Bld) [Mass/Vol] 12.7 g/dL Normal 12.0-16.0 [facility] Comment on above: Performed By: #### L IPA, DLDL, CON, LIPID, T7, CMP, TSH #### [facility] [address] [place] [address] Dr. Delmer Rea IG # 0.01 10e3/ul Normal 0.00-0.03 [facility] Comment on above: Performed By: #### L IPA, DLDL, CON, LIPID, T7, CMP, TSH #### [facility] [address] [place] [address] Dr. Delmer Rea IG % 0.2 % Normal 0.0-0.5 [facility] Comment on above: Performed By: #### L IPA, DLDL, CON, LIPID, T7, CMP, TSH #### [facility] [address] [place] [address] Dr. Delmer Rea LYMPH # 1.8 103/ul Normal 1.2-3.8 [facility] Comment on above: Performed By: #### L IPA, DLDL, CON, LIPID, T7, CMP, TSH #### [facility] [address] [place] [address] Dr. Delmer Rea Lymphocytes/100 WBC (Bld) 34.6 % Normal 20.5-60.0 [facility] Comment on above: Performed By: #### L IPA, DLDL, CON, LIPID, T7, CMP, TSH #### [facility] [address] [place] [address] Dr. Delmer Rea MANUAL DIFF REQ NO Normal [facility] Comment on above: Performed By: #### L IPA, DLDL, CON, LIPID, T7, CMP, TSH #### [facility] [address] [place] [address] Dr. Delmer Rea MCH (RBC) [Entitic mass] 28.7 pg Normal 26.7-34.0 [facility] Comment on above: Performed By: #### L IPA, DLDL, CON, LIPID, T7, CMP, TSH #### [facility] [address] [place] [address] Dr. Delmer Rea MCHC (RBC) [Mass/Vol] 33.6 g/dL Normal 29.9-35.2 [facility] Comment on above: Performed By: #### L IPA, DLDL, CON, LIPID, T7, CMP, TSH #### [facility] [address] [place] [address] Dr. Delmer Rea MCV (RBC) [Entitic vol] 85.5 fL Normal 81.0-99.0 [facility] Comment on above: Performed By: #### L IPA, DLDL, CON, LIPID, T7, CMP, TSH #### [facility] [address] [place] [address] Dr. Delmer Rea MONO # 0.5 103/ul Normal 0.3-0.8 [facility] Comment on above: Performed By: #### L IPA, DLDL, CON, LIPID, T7, CMP, TSH #### [facility] [address] [place] [address] Dr. Delmer Rea Monocytes/100 WBC (Bld) 8.6 % Normal 1.7-12.0 [facility] Comment on above: Performed By: #### L IPA, DLDL, CON, LIPID, T7, CMP, TSH #### [facility] [address] [place] [address] Dr. Delmer Rea NEUT # 2.8 103/ul Normal 1.4-6.5 [facility] Comment on above: Performed By: #### L IPA, DLDL, CON, LIPID, T7, CMP, TSH #### [facility] [address] [place] [address] Dr. Delmer Rea Neutrophils/100 WBC (Bld) 53.9 % Normal 43.0-75.0 [facility] Comment on above: Performed By: #### L IPA, DLDL, CON, LIPID, T7, CMP, TSH #### [facility] [address] [address] [address] Delmer Rea Platelet mean volume (Bld) [Entitic vol] 10.2 fL Normal 9.5-13.5 [facility] Comment on above: Performed By: #### L IPA, DLDL, CON, LIPID, T7, CMP, TSH #### [facility] [address] [address] [address] Delmer Rea PLT 326 103/ul Normal 150-450 [facility] Comment on above: Performed By: #### L IPA, DLDL, CON, LIPID, T7, CMP, TSH #### [facility] [address] [place] [address] Dr. Delmer Rea RBC 4.42 106/ul Normal 4.20-5.40 [facility] Comment on above: Performed By: #### L IPA, DLDL, CON, LIPID, T7, CMP, TSH #### [facility] [address] [place] [address] Dr. Delmer Rea WBC 5.2 103/ul Normal 4.0-11.0 [facility] Comment on above: Performed By: #### L IPA, DLDL, CON, LIPID, T7, CMP, TSH #### [facility] [address] [place] [address] Dr. Delmer Rea CRPon 04-15-2022 CRP [Mass/Vol] mg/L Normal <=1.0 [facility] Comment on above: Performed By: #### L IPA, DLDL, CON, LIPID, T7, CMP, TSH #### [facility] [address] [place] [address] Dr. eDlmer Rea FREE THYROXINE INDEX T7on FTI 5.07 Critically high 1.30-4.50 [facility] Comment on above: Performed By: #### L IPA, DLDL, CON, LIPID, T7, CMP, TSH #### [facility] [address] [address] [address] Delmer Rea T3U 37.0 % Normal 30.0-39.0 [facility] Comment on above: Performed By: #### L IPA, DLDL, CON, LIPID, T7, CMP, TSH #### [facility] [address] [address] [address] Delmer Rea T4 [Mass/Vol] 13.70 ug/dL Normal 4.80-13.90 [facility] Comment on above: Performed By: #### L IPA, DLDL, CON, LIPID, T7, CMP, TSH #### [facility] [address] [address] [address] Delmer Rea GLYCOHEMOGLOBIN A1Con 2021 ADA RECOMMENDATION SEE BELOW Normal [facility] Comment on above: Result Comment: ADA RECOMMENDED LIMIT 4.0 - 6.0 ADA THERAPEUTIC TARGET < 7.0 ACTION SUGGESTED > 7.0 Performed By: #### L IPA, DLDL, CON, LIPID, T7, CMP, TSH #### [facility] [address] [address] [address] Delmer Rea Glucose [Mass/Vol] 174 mg/dL Normal [facility] Comment on above: Performed By: #### L IPA, DLDL, CON, LIPID, T7, CMP, TSH #### [facility] [address] [address] [address] Delmer Rea HbA1c (Bld) [Mass fraction] 7.7 % Critically high 4.5-6.2 [facility] Comment on above: Performed By: #### L IPA, DLDL, CON, LIPID, T7, CMP, TSH #### [facility] [address] [address] [address] Delmer Rea IRONon 04-15-2022 Iron [Mass/Vol] 84.0 ug/dL Normal 50.0-170.0 [facility] Comment on above: Performed By: #### U MICRO, ERUR #### [facility] [address] [address] [address] Delmer Rea LIPID PROFILEon 04-15-2022 CHOL-HDL RATIO NORM SEE BELOW Normal [facility] Comment on above: Result Comment: 3.3 - 4.4 LOW RISK 4.4 - 7.1 AVERAGE RISK 7.1 - 11.0 MODERATE RISK >11.0 HIGH RISK Performed By: #### L IPA, DLDL, CON, LIPID, T7, CMP, TSH #### [facility] [address] [address] [address] Delmer Rea Cholesterol [Mass/Vol] 239 mg/dL Critically high <=200 [facility] Comment on above: Performed By: #### L IPA, DLDL, CON, LIPID, T7, CMP, TSH #### [facility] [address] [address] [address] Delmer Rea Cholesterol in HDL [Mass/Vol] 43 mg/dL Normal 40-60 [facility] Comment on above: Performed By: #### L IPA, DLDL, CON, LIPID, T7, CMP, TSH #### [facility] [address] [address] [address] Delmer Rea Cholesterol in LDL [Mass/Vol] 131.8 mg/dL Normal [facility] Comment on above: Performed By: #### L IPA, DLDL, CON, LIPID, T7, CMP, TSH #### [facility] [address] [address] [address] Delmer Rea Cholesterol.total/Ch olesterol in HDL [Mass ratio] 5.6 {ratio} Normal [facility] Comment on above: Performed By: #### L IPA, DLDL, CON, LIPID, T7, CMP, TSH #### [facility] [address] [address] [address] Delmer Rea HDL NORMAL > or = 60 mg/dl - LO W CARDIOVASCULAR RISK <40 mg/dl - HIGH CARDIOVASCULAR RISK Normal [facility] Comment on above: Performed By: #### L IPA, DLDL, CON, LIPID, T7, CMP, TSH #### [facility] [address] [address] [address] Delmer Rea LDL CALC NORMAL SEE BELOW Normal [facility] Comment on above: Result Comment: <100 mg/dl OPTIMAL 100 - 129 mg/dl NEAR OR ABOVE OPTIMAL 130 - 159 mg/dl BORDERLINE HIGH 160 - 189 mg/dl HIGH >190 mg/dl VERY HIGH Performed By: #### L IPA, DLDL, CON, LIPID, T7, CMP, TSH #### [facility] [address] [place] [address] Dr. Delmer Rea Triglyceride [Mass/Vol] 321 mg/dL Critically high <=150 [facility] Comment on above: Performed By: #### L IPA, DLDL, CON, LIPID, T7, CMP, TSH #### [facility] [address] [place] [address] Dr. Delmer Rea VLDL CALC 64.2 mg/dL Normal [facility] Comment on above: Performed By: #### L IPA, DLDL, CON, LIPID, T7, CMP, TSH #### [facility] [address] [place] [address] Dr. Delmer Rea PROF 14(COMP METB)on 022 Albumin [Mass/Vol] 3.6 g/dL Normal 3.4-5.0 [facility] Comment on above: Performed By: #### L IPA, DLDL, CON, LIPID, T7, CMP, TSH #### [facility] [address] [place] [address] Dr. Delmer Rea Albumin/Globulin [Mass ratio] 0.9 {ratio} Normal [facility] Comment on above: Performed By: #### L IPA, DLDL, CON, LIPID, T7, CMP, TSH #### [facility] [address] [place] [address] Dr. Delmer Rea ALP [Catalytic activity/Vol] 98 U/L Normal 46-116 [facility] Comment on above: Performed By: #### L IPA, DLDL, CON, LIPID, T7, CMP, TSH #### [facility] [address] [place] [address] Dr. Delmer Rea ALT [Catalytic activity/Vol] 21 U/L Normal 14-59 [facility] Comment on above: Performed By: #### L IPA, DLDL, CON, LIPID, T7, CMP, TSH #### [facility] [address] [place], [place] [id number] Dr. Delmer Rea Anion gap [Moles/Vol] 15.8 mmol/L Normal [facility] Comment on above: Performed By: #### L IPA, DLDL, CON, LIPID, T7, CMP, TSH #### [facility] [address] [place] [address] Dr. Delmer Rea AST [Catalytic activity/Vol] 10 U/L Critically low 15-37 [facility] Comment on above: Performed By: #### L IPA, DLDL, CON, LIPID, T7, CMP, TSH #### [facility] [address] [address] [address] Delmer Rea Bilirubin [Mass/Vol] 0.6 mg/dL Normal 0.2-1.0 [facility] Comment on above: Performed By: #### L IPA, DLDL, CON, LIPID, T7, CMP, TSH #### [facility] [address] [place] [address] Dr. Delmer Rea Calcium [Mass/Vol] 9.4 mg/dL Normal 8.5-10.1 [facility] Comment on above: Performed By: #### L IPA, DLDL, CON, LIPID, T7, CMP, TSH #### [facility] [address] [place] [address] Dr. Delmer Rea Chloride [Moles/Vol] 105 mmol/L Normal 98-107 [facility] Comment on above: Performed By: #### L IPA, DLDL, CON, LIPID, T7, CMP, TSH #### [facility] [address] [place] [address] Dr. Delmer Rea CO2 [Moles/Vol] 26.2 mmol/L Normal 21.0-32.0 [facility] Comment on above: Performed By: #### L IPA, DLDL, CON, LIPID, T7, CMP, TSH #### [facility] [address] [place] [address] Dr. Delmer Rea Creatinine [Mass/Vol] 1.26 mg/dL Critically high 0.55-1.02 [facility] Comment on above: Performed By: #### L IPA, DLDL, CON, LIPID, T7, CMP, TSH #### [facility] [address] [address] [address] Delmer Rea EGFR-AF NEPALESE 54 mL/min/1.73m2 Critically low >=60 [facility] Comment on above: Performed By: #### L IPA, DLDL, CON, LIPID, T7, CMP, TSH #### [facility] [address] [address] [address] Delmer Rea EGFR-NON AF NEPALESE 45 mL/min/1.73m2 Critically low >=60 [facility] Comment on above: Performed By: #### L IPA, DLDL, CON, LIPID, T7, CMP, TSH #### [facility] [address] [place] [address] Dr. Delmer Rea Globulin (S) [Mass/Vol] 3.9 g/dL Normal [facility] Comment on above: Performed By: #### L IPA, DLDL, CON, LIPID, T7, CMP, TSH #### [facility] [address] [address] [address] Delmer Rea Glucose [Mass/Vol] 125 mg/dL Critically high 74-106 [facility] Comment on above: Performed By: #### L IPA, DLDL, CON, LIPID, T7, CMP, TSH #### [facility] [address] [place] [address] Dr. Delmer Rea Potassium [Moles/Vol] 4.0 mmol/L Normal 3.5-5.1 [facility] Comment on above: Performed By: #### L IPA, DLDL, CON, LIPID, T7, CMP, TSH #### [facility] [address] [address] [address] Delmer Rea Protein [Mass/Vol] 7.5 g/dL Normal 6.4-8.2 [facility] Comment on above: Performed By: #### L IPA, DLDL, CON, LIPID, T7, CMP, TSH #### [facility] [address] [place] [address] Dr. Delmer Rea Sodium [Moles/Vol] 143 mmol/L Normal 136-145 [facility] Comment on above: Performed By: #### L IPA, DLDL, CON, LIPID, T7, CMP, TSH #### [facility] [address] [place] [address] Dr. Delmer Rea Urea nitrogen [Mass/Vol] 34.0 mg/dL Critically high 7.0-18.0 [facility] Comment on above: Performed By: #### L IPA, DLDL, CON, LIPID, T7, CMP, TSH #### [facility] [address] [address] [address] Delmer Rea Urea nitrogen/Creatinine [Mass ratio] 27.0 mg/mg Normal [facility] Comment on above: Performed By: #### L IPA, DLDL, CON, LIPID, T7, CMP, TSH #### [facility] [address] [place] [address] Dr. Delmer Rea TSHon 04-15-2022 TSH 0.009 uIU/mL Critically low 0.358-3.740 [facility] Comment on above: Performed By: #### L IPA, DLDL, CON, LIPID, T7, CMP, TSH #### [facility] [address] [place] [address] Dr. Delmer Rea TSH RANGE SEE BELOW Normal [facility] Comment on above: Result Comment: <0.3 4 UIU/ml HYPERTHYROID 0.34-5.60 UIU/ml EUTHYROID >5.60 UIU/ml HYPOTHYROID Performed By: #### L IPA, DLDL, CON, LIPID, T7, CMP, TSH #### [facility] [address] [place] [address] Dr. Delmer Rea URIC ACID SERUMon 04-15-2022 Urate [Mass/Vol] 7.1 mg/dL Critically high 2.6-6.0 [facility] Comment on above: Performed By: #### L IPA, DLDL, CNO, LIPID, T7, CMP, TSH #### [facility] [address] [place] [address] Dr. Delmer Rea VITAMIN D 25 OHon 04-15-2022 VIT D 25-OH 23.8 ng/mL Normal [facility] Comment on above: Performed By: #### U MICRO, ERUR #### [facility] [address] [address] [address] Delmer Rea VIT D RANGES SEE BELOW Normal [facility] Comment on above: Result Comment: <20 ng/mL Vit D deficient 20 - <30 ng/mL Vit D insufficient 30 - 100 ng/mL Vit D sufficient >100 ng/mL Potential Toxicity Performed By: #### U MICRO, ERUR #### [facility] [address] [address] [address] Delmer Bowman 11-09-2021 CNPN Telephone (GENBMI) ASA THOMPSON ([id number]) 1970 F Date Time Provider Department 11/09/21 [...] Encounter Status:Closed by ABRAHAM PACHECO on 11/09/21 [facility]-20[facility] A[facility] THOM[facility] ([id number]) 1970 F Date Time Provider Department 10/05/21 [...] Encounter Status:Closed by ABRAHAM PACHECO on 11/30/21 [facility] 07-29-2021 CNPN Telephone (GENBMI) ASA THOMPSON ([id number]) 1970 F Date Time Provider Department 07/29/21 [facility] your visit today, we recorded the [...] Encounter Status:Closed by ABRAHAM PACHECO on 07/29/21 [facility] 07-14-2021 [facility]GENBMI[facility] ASA THOMPSON ([id number]) 1970 F Date Time Provider Department 07/14/21 ABRAHAM PACHECO [facility] During your visit today, we recorded the following information about you: Abraham Pacheco RN 07/14/2021 3:04 PM Addendum Follow up call placed to patient, no answer phone; left voice message with my call back phone number. [phone] Cancelled surgery scheduled for 07/15/21. No call [...] Encounter Status:Closed by ABRAHAM PACHECO on 07/14/21 [facility] Telephone (GSPSMN) MARLENYASA James ([id number]) 1970 F Date Time Provider Department 07/14/21 JEANNINE TAMEZ GSPSMN During your visit today, we recorded the following information about you: Jeannine Tamez, PhD 07/14/2021 1:02 PM Signed [facility] Attempted [...] Encounter Status:Closed by JEANNINE TAMEZ on 07/14/21 [facility] Gracie 07-13-2021 CNPN Telephone (GENBMI) ASA THOMPSON ([id number]) 1970 F Date Time Provider Department 07/13/21 [...] Encounter Status:Closed by ABRAHAM PACHECO on 07/13/21 [facility] 07-08-2021 [facility]GENBMI[facility] ASA THOMPSON ([id number]) 1970 F Date Time Provider Department 07/08/21 [...] Encounter Status:Closed by ABRAHAM PACHECO on 07/15/21 [facility] Telephone (ZumboxI) ASA THOMPSON ([id number]) 1970 F Date Time Provider Department 07/08/21 ABRAHAM PACHECO [facility] During your visit today, we [...] Encounter Status:Closed by ABRAHAM PACHECO on 07/08/21 [facility] 07-07-2021 [facility] MARLENYASA James ([id number]) 1970 F Date Time Provider Department 07/07/21 [...] Encounter Status:Closed by ABRAHAM PACHECO on 07/07/21 [facility] 07-05-2021 CNPN Telephone (GENBMI) ASA THOMPSON ([id number]) 1970 F Date Time Provider Department 07/05/21 [...] Encounter Status:Closed by ABRAHAM PACHECO on 07/06/21 [facility]ie 06-21-2021 CNPN Telephone ([facility]) LUCASA SPANN ([id number]) 1970 F Date Time Provider Department 06/21/21 [...] arrival time. Other Instructions Reviewed: Gave patient [phone] My Chart Support line phone number Skin [...] daily. - (more content not included)... Normal [facility] 05-25-2021 CNPN Telephone (GENBMI) ASA THOMPSON ([id number]) 1970 F Date Time Provider Department 05/25/21 ABRAHAM PACHECO During your visit today, we recorded the following information about you: Abraham Pacheco RN 05/25/2021 4:23 PM Signed [facility] COORDINATION SURGERY APPROVAL CALL Received e-mail confirmation of insurance approval for bariatric surgery.Pre-operative call placed to the patient, this RN spoke with patient and agreed upon a surgery date of July 15 2021. Surgical episode request sent to [facility] surgery scheduling. -Patient instructed to start [...] instructed to fax FMLA forms to medical appointment clerk and allow 7-10 days for completion. Radha [...] Encounter Status:Closed by ABRAHAM PACHECO on 05/25/21 [facility] 04-26-2021 CNCO Letter Text [facility] 04-21-2021 CNCO Letter Text Normal [facility] 04-12-2021 CNCO Letter Text [facility] Vital Signs Date Time Vital Sign Value Performing Clinician Facility 12-27-2022 15:00-0500 Body height 160.02 cm Aime Capone Other [facility] Other 12-27-2022 15:00-0500 Body mass index (BMI) [Ratio] 44.63 kg/m2 Aime Capone Other [facility] Other 12-27-2022 15:00-0500 Body weight 114.31 kg Aime Capone Other [facility] Other 12-27-2022 15:00-0500 Diastolic blood pressure 61 mm[Hg] Aime Capone Other [facility] Other 12-27-2022 15:00-0500 Respiratory rate 18 /min Aime Capone Other [facility] Other 12-27-2022 15:00-0500 SaO2% (BldA) [Mass fraction] 97 % Aime Capone Other [facility] Other 12-27-2022 15:00-0500 Systolic blood pressure 127 mm[Hg] Aime Capone Other [facility] Other 07-26-2022 10:45-0400 Body temperature 98.2 [degF] Bishnu Horner MD Work Phone: [employer] 07-26-2022 10:45-0400 Diastolic blood pressure 65 mm[Hg] Bishnu Horner MD Work Phone: [facility] [employer] 07-26-2022 10:45-0400 Heart rate 84 /min Bishnu Horner MD Work Phone: [facility] [employer] 07-26-2022 10:45-0400 Respiratory rate 16 /min Bishnu Horner MD Work Phone: [employer] 07-26-2022 10:45-0400 SaO2% (BldA) [Mass fraction] 98 % Bishnu Horner MD Work Phone: [facility] [employer] 07-26-2022 10:45-0400 Systolic blood pressure 161 mm[Hg] Bishnu Horner MD Work Phone: [employer] 07-25-2022 18:02-0400 Body height 165.1 cm Bishnu Horner MD Work Phone: [facility] [employer] 07-25-2022 18:02-0400 Body mass index (BMI) [Ratio] 39.94 kg/m2 Bishnu Horner MD Work Phone: [facility] [employer] 07-25-2022 18:02-0400 Body weight 108.86 kg Bishnu Horner MD Work Phone: [facility] [employer] 07-22-2022 11:28-0400 Body temperature 98.2 [degF] Aime iBrd MD [facility] [employer] 07-22-2022 11:28-0400 Diastolic blood pressure 72 mm[Hg] Aime Bird MD [facility] [employer] 07-22-2022 11:28-0400 Heart rate 92 /min Aime Bird MD [facility] [employer] 07-22-2022 11:28-0400 Respiratory rate 12 /min [facility] 07-22-2022 11:28-0400 SaO2% (BldA) [Mass fraction] 96 % Aime Bird MD [facility] [employer] 07-22-2022 11:28-0400 Systolic blood pressure 155 mm[Hg] Aime Bird MD [facility] [employer] 07-18-2022 20:54-0400 Body height 165.1 cm Aime Bird MD [facility] [employer] 07-18-2022 20:54-0400 Body mass index (BMI) [Ratio] 42.56 kg/m2 Aime Bird MD [facility] [employer] 07-18-2022 20:54-0400 Body weight 116 kg Aime Bird MD [facility] Encounters Encounter Date Encounter Type Care Provider Facility Start: 09-02-2024 End: 09-02-2024 ambulatory [facility] Start: 08-06-2024 End: 08-06-2024 Refill Karen Boni Sharif 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 [employer] Work Phone: [facility] Start: 08-03-2024 End: 08-06-2024 Evaluation and management of inpatient GARRY Sakshi RAMOS [facility] Start: 03-10-2023 End: 03-11-2023 [facility] Start: [facility]-03-[facility]23 [facility] Start: 12-28-2022 End: 12-29-2022 [facility] Start: 12-27-2022 End: 12-27-2022 [facility] Other Start: 12-27-2022 Office [facility] ne w [facility] Start: 12-01-2022 End: 12-02-[address] GARRY RAMOS . Facility:[facility]1 Start: 11-26-2022 End: 11-26-[address] GARRY RAMOS . Facility:[facility]1 Start: 11-25-2022 End: 11-26-[address] GARRY RAMOS . Facility:H1 Start: 09-23-[address] GARRY RAMOS . Facili ty:H1 Start: 09-12-2022 End: 09-12-[address] GARRY RAMOS . Facility:H1 Start: 08-05-2022 End: 08-08-2022 ambulatory [facility]ARYANN [facility] Start: 07-25-2022 End: 07-26-2022 [facility] Start: 07-25-2022 End: 07-26-2022 Emergency department patient visit Bishnu Horner MD Work Phone: [facility] 3C Observation Comment on above: Nephrostomy complica tion (HCC) (Primary Dx) Start: 07-18-2022 End: 07-22-2022 Evaluation [facility] Start: 07-18-2022 End: 07-22-2022 Evaluation and management of inpatient Aime Bird MD [facility] 5C Stepdown Comment on above: Kidney stone (Primar y Dx); Acute pyelonephritis; Left renal atrophy; Staghorn renal calculus; OMAR (acute kidney injury) ([facility]) Start: 07-18-2022 End: 07-18-[address] GARRY RAMOS . Facility: Start: 04-15-2022 End: 04-16-[address] GARRY RAMOS . Facility: Start: 04-01-[address] GARRY RAMOS . Facili ty:H1 Start: 02-15-2019 End: 02-22-2019 ambulatory GARRY RAMOS Facility:[facility] Procedures Date Procedure Procedure Detail Performing [...] REFLEX TO MG FOR LOW K Brooklynn Ferrair MD Work Phone: Start: 07-21-2022 Assay of [...] Td Vaccines (2 - Td or Tdap) [facility] Start: 08-06-2025 Adult BMI Screening Adult BMI Screen ing [facility] Start: 08-03-2025 Tobacco Screening Tobacco Screening [facility] Start: 09-18-2024 End: 09-18-2024 Patient encounter procedure 09/18/2024 3:00 PM EST Office Visit [facility] [address] [place] [id number] Luis Pratt MD [address] [facility] [place] [phone] [facility] Start: 07-07-2024 COVID-19 Vaccine ( season) COVID-19 Vaccine ( season) [facility] Start: 07-07-2024 Influenza vaccination Influenza Vacc ine [facility] Start: 08-23-2022 End: 08-23-2022 Patient encounter procedure 08/23/2022 Office Visit Infectious Diseases Urban Noriega MD [address] [facility] [address] [place], [place] [id number] [facility] Start: 08-03-2022 End: 07-20-2023 NM KIDNEY W FLOW AND FUNCTION W PHARMACOLOGICAL INTERVENTION NM KIDNEY W FLOW AND FUNCTION W PHARMACOLOGICAL INTERVENTION Imaging Routine Left renal atrophy Staghorn renal calculus Expected: 08/03/2022, Expires: 07/20/2023 [facility] Phone: Comment on above: Expected: 08/03/2022 , Expires: 07/20/2023 Start: 07-29-2022 End: 07-22-2023 Basic metabolic 2000 panel - Serum or Plasma Basic Metabolic Panel Lab Routine OMAR (acute kidney injury) (HCC) Expected: 07/29/2022, Expires: 07/22/2023 [facility] Phone: Comment on above: Expected: 07/29/2022 , Expires: 07/22/2023 Start: 07-07-2022 Influenza vaccination Flu vaccine (# 1) [employer] Start: 2021 Administration of varicella zoster vaccine Zoster (Shingles) Vaccine (1 of 2) [facility] Start: 2021 Screening for malign ant neoplasm of breast Breast cancer screen [employer] Start: 2021 Shingles vaccine (1 of 2) Shingles vaccine (1 of 2) [employer] [facility] Start: 2016 Screening for malign ant neoplasm of colon [employer] Start: 2001 Screening for malign ant neoplasm of cervix [employer] [facility] Start: 1992 Screening for malign ant neoplasm of cervix Pap smear [facility] Start: 1990 DTaP/Tdap/Td vaccine (1 - Tdap) DTaP/Tdap/Td vaccine (1 - Tdap) [employer] Start: 1990 Hepatitis B vaccine (1 of 3 - Risk 3-dose series) Hepatitis B vaccine (1 of 3 - Risk 3-dose series) [facility] Start: 1989 Adult BMI Follow Up Plan Adult BMI F ollow Up Plan [facility] Start[facility] 1989 Diabetic foot examination Diabetic Foot Exam [facility] Start: 1989 Diabetic retinal exam Diabetic retin al exam [facility] [employer] Start: 1989 Urine screening for protein Diabetic microalbuminuria test [facility] [employer] Start: 1986 HIV screening HIV screen [facility] [employer] Start: 1983 Depression Monitoring Depression Mon kristan [facility] Start: 1983 Depression Screening Depression Scre ening [facility] Start: 1981 Diabetic foot examination Diabetic foot exam [facility] [employer] Start: 1981 Hemoglobin A1c measurement A1C test (Diabetic or Prediabetic) [facility] Start: 1981 Lipid panel Lipids [facility] [employer] Start: 1977 Pneumococcal 0-64 ye ars Vaccine (1 - PCV) Pneumococcal 0-64 years Vaccine (1 - PCV) [facility] [employer] Start: 03-26-1972 COVID-19 Vaccine (#1) COVID-19 Vacci ne (#1) [facility] [employer] Start: 1971 Glaucoma screening Diabetic Op hthalmology Exam [facility] Start: 1971 Urine screening for protein Urine Microalbumin [facility] End: 08-01-2022 Basic Metabolic Panel w/ Reflex to MG Basic Metabolic Panel w/ Reflex to MG Lab Routine Daily for 14 Occurrences starting 07/19/2022 until 08/01/2022, 3 completed [facility] Phone: Comment on above: Daily for 14 Occurre nces starting 07/19/2022 until 08/01/2022, 3 completed Culture, Blood 1 [facility] Phone: Culture, Blood 1 Culture, Blood 1 Microbiology STAT 07/20/2022 4:26 AM EDT [facility] Phone: Culture, Blood 1 [facility] Phone: Culture, Blood 2 Culture, Blood 2 Microbiology STAT 07/20/2022 4:26 AM EDT [facility] Phone: Glucose [Mass/volume ] in Serum or Plasma [facility] Phone: Comment on above: 4X Daily (AC & HS) u ntil discontinued starting 07/18/2022, 1 completed As Needed until disc ontinued starting 07/18/2022 Glucose [Mass/volume ] in Serum or Plasma POCT Glucose Point of Care Testing STAT As Needed until discontinued starting 07/26/2022 [facility] Phone: Comment on above: As Needed until disc ontinued starting 07/26/2022 Oxygen therapy [Mini mum Data Set] Initiate Oxygen Therapy Protocol Respiratory Care Routine As Needed until discontinued starting 07/18/2022 [facility] Phone: Comment on above: As Needed until disc ontinued starting 07/18/2022 Oxygen therapy [Mini mum Data Set] Initiate Oxygen Therapy Protocol Respiratory Care Routine Daily until discontinued starting 07/25/2022 [facility] Phone: Comment on above: Daily until disconti nued starting 07/25/2022 Immunizations Immunization Date Immunization Notes Care Provider [facility] 10-28-2021 influenza virus vaccine, unspecified formulation Karen Greenberglins [facility] Work Phone: [employer] 08-19-2016 tetanus toxoid, reduced diphtheria toxoid, and acellular pertussis vaccine, adsorbed Aziz Bakhous Other [employer] Other Payers Date Payer Category Payer Private Health Insurance [facility]/[employer] [id number] 2022-Present [phone] [address] [address] [place] [address] [id number] 1971 Unknown [id number] 2.16.840.1.338577.3.579. 2.647 1971 Unknown [id number] 2.16.840.1.386535.3.579. 2.173 1971 Unknown [id number] 2.16.840.1.715570.3.579. 2.175 1971 Unknown [id number] 2.16.840.1.143125.3.579. 2.175 1971 Unknown [id number] 2.16.840.1.262248.3.579. 2.593 1971 Unknown [id number] 2.16.840.1.254628.3.579. 2.593 1971 Unknown [id number] 2.16.840.1.755892.3.579. 2.593 1971 Unknown [id number] 2.16.840.1.951664.3.579. 2.593 1971 Unknown [id number] 2.16.840.1.452714.3.579. 2.593 1971 Unknown [id number] 2.16.840.1.010687.3.579. 2.593 1971 Unknown [id number] 2.16.840.1.159064.3.579. 2.593 1971 Unknown [id number] 2.16.840.1.325738.3.579. 2.593 1971 Unknown [id number] 2.16.840.1.430118.3.579. 2.593 1971 Unknown [id number] 2.16.840.1.769309.3.579. 2.593 1971 Unknown [id number] 2.16.840.1.608842.3.579. 2.593 1971 Unknown [id number] 2.16.840.1.622606.3.579. 2.1286 1958 Self-pay [id number] 1959 Unknown [id number] 1958 Unknown [id number] Self-pay Self Pay [id number] Unknown [id number] 2.16.840.1.824537.19 Social History Date Type Detail Facility [facility] Start: 1970 Sex Assigned At Female [facility] Tobacco smoking stat [facility] Tobacco smoking consumption unknown [employer] Phone: Start: 1970 Sex Assigned At Not on file [employer] Phone: Start: 07-08-2022 End: 07-25-2022 Exposure to SARS-CoV-2 (event) Not sure [employer] Start: 12-17-2020 End: 08-04-2024 Sex Assigned At [employer] Start: 12-26-2021 Tobacco smoking status NHIS Never smoked tobacco [facility] Start: 12-26-2021 Tobacco use and exposure Smokeless tobacco non-user [employer] Start: 08-03-2024 Alcoholic beverage intake Ex-drinker (finding) [employer] [facility] Start: 12-17-2020 End: 08-04-2024 History of Social function [facility] Has the [employer] threatened to shut off services in your home in past 12Mo No [employer] In the past 12 month s, has lack of transportation kept you from medical appointments or from getting medications? No [employer] [facility] Equipment Procedure Code Equipment Code Equipment [...] Date & Type Note Facility 09-02-2024 Note [facility] Cardiology Clinic Note Chief Complaint: New patient here to establish care. Ref from Dr. Ramos for abnormal echo performed at [facility] last month while inpatient. She was discharged [...] complication, with long-term current use of insulin ([facility]) Essential hypertension Mixed hyperlipidemia Complicated headache syndromes Hyperglycemia OMAR (acute kidney injury) ([facility]) Vision changes Hypomagnesemia Cerebrovascular accident (CVA) due to embolism of precerebral artery ([facility]) Update 09/02/2024: She has had no further [...] of left kidney, CVA (cerebral vascular accident) ([facility]) (2021), Diabetes mellitus ([facility]), and Kidney stone. Surgical History She has [...] , Rfl: met (more content not included)... [facility] 12-27-2022 Evaluation note Encounter Date Diagnosis Assessment [...] pyonephritis. Patient follows with urology clinic at [facility] Dec, Solitary kidney, acquired (ICD-10 - [...] home and to follow a low-salt diet [employer] Other 09-20-2022 NotePROCEDURE: MARTINE LILLY NEPHROSTMY CATH [...] detailed explanation of the procedure including risks. Melrose protocol was observed. Sterile gowns, masks, hats and gloves utilized for maximal sterile barrier. The patient was placed in the prone position on the fluoroscopy table, and the existing left nephroureteral stent and flank were prepped and draped in sterile manner. The stent tubing was noted to be broken with the lumen exposed near the level of the skin. A college director image demonstrated the distal loop approximating the [...] wire. Under fluoroscopic guidance, a new 8 Polish x 22 cm nephroureteral stent was advanced over the wire; the distal loop formed in the bladder, but the proximal loop did not form in the renal pelvis. Therefore, this catheter was removed over wire, and a new 8 Polish x 24 cm nephroureteral stent was advanced [...] Signed by: Bishnu Alan MD 07/26/22 [facility] NotePROCEDURE: IR CHG NEPHROSTMY CATH PROC [...] detailed explanation of the procedure including risks. Melrose protocol was observed. Sterile gowns, masks, hats and gloves utilized for maximal sterile barrier. The patient was placed in the prone position on the fluoroscopy table, and the existing left nephroureteral stent and flank were prepped and draped in sterile manner. The stent tubing was noted to be broken with the lumen exposed near the level of the skin. A college director image demonstrated the distal loop approximating the [...] wire. Under fluoroscopic guidance, a new 8 Polish x 22 cm nephroureteral stent was advanced over the wire; the distal loop formed in the bladder, but the proximal loop did not form in the renal pelvis. Therefore, this catheter was removed over wire, and a new 8 Polish x 24 cm nephroureteral stent was advanced over the wire. The distal loop formed in the expected position of the bladder, and the proximal loop partially formed in the renal pelvis. Contrast injection confirmed appropriate positioning. The stent was then attached to the skin with a 2-0 monofilament suture. The patient tolerated the procedure well. COMPLICATIONS: None immediately apparent MHPN RIS [id number] History of Present illness Narrative* Paloma Arceo MD - 07/26/2022 1:42 PM EDT [place] [facility] / OBSERVATION ENCOUNTER ATTENDING NOTE I [...] going to IR this morning for replacement. [facility] observation unit for nephrostomy tube placement. Patient reassessed on arrival to the floor. Paloma Arceo MD Attending Emergency Physician * Song Sharif - 07/26/2022 12:50 AM EDT [facility] C[facility] - [facility] [place] Shift date: 07.25.2022 Shift day: Monday Shift # 2 Room # 10/17 Name: Asa Thompson Bahai: unknown Place of orthodox: unknown Referral: Routine Visit Admit Date & Time: 07/25/2022 5:43 PM Assessment: Asa Thompson is a 51 y.o. female in the hospital with pain. Upon entering the room fha underwriter observes patient in pain and states that she is looking for a nurse to provide pain management. Patient appears to be coping otherwise. 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 Outcome: Patient requests nursing assistance for pain. Chemical Tank Worker attempted to follow up with nursing staff. Plan: Chaplains will remain available to offer spiritual and emotional support as needed. . Spiritual Care Department [facility] [phone] 07/25/22 0346 Encounter Summary Service Provided For: Patient Referral/Consult From: Rounding Support System Family members Last Encounter 07/25/22 Complexity of Encounter Moderate Begin Time 2310 End Time 2325 Total Time Calculated 15 min Encounter Type Initial Screen/Assessment Assessment/Intervention/Outcome Assessment Compromised coping Intervention Active listening;Discussed illness injury and it s impact;Explored/Affirmed feelings, thoughts, concerns Outcome Expressed feelings, needs, and concerns;Venting emotion documented in this encounterBON [employer] Phone: [phone]) 860-856409-16-2022 History of Present illness Narrative* Christine Campa RN - 07/22/2022 4:32 PM EDT Wheelchair Driver went over all discharge paperwork with patient and Shaq bedside. Patient denies any further questions or concerns at this time. Patient also has a BMP script to get done within 1 week and have results sent to PCP. Wheelchair Driver also called [facility] pharmacy in [place] and verified E-prescriptions were sent. Patient also has all personal belongings on discharge as well * Emelia Kumar - 07/22/2022 4:26 PM EDT CLINICAL PHARMACY NOTE: MEDS TO BEDS Total # of Prescriptions Filled: 3 The following medications were delivered to the patient: Furosemide 20mg Ciprofloxacin 500mg Hydralazine 25mg Additional Documentation: delivered to patient in room 541 07/22 at 3:33pm. Co- pay $16.50 [email or web address]. * Christine Campa RN - 07/22/2022 3:47 PM EDT Wheelchair Driver was unable to set up follow up appointment for Dr. Chino Dempsey (urologist) on discharge d/tthe office being closed. Wheelchair Driver explained to the patient that she will [...] Date/Time NITRU NEGATIVE 07/20/2022 03:05 PM COLORU [place] 07/20/2022 03:05 PM PHUR 5.0 07/20/2022 03:05 [...] as outpatient as well, patient lives near [facility] and will likely ask her PCP to get nephrological referral otherwise if she wants she can follow-up in the clinic with us as well. She should get BMP results done in 1 week and results faxed to PCP. Nutrition Please ensure that patient is on a renal diet/TF. Avoid nephrotoxic drugs/contrast exposure. Shahid Do MD [facility] This note is created with the assistance of a speech-recognition program. While intending to generate a document that actually reflects the content of the visit, no guarantees can be provided that every mistake has been identified and corrected by editing. * Urban Noriega MD - 07/22/2022 10:27 AM EDT Images from the original note were not included. [facility] - Progress Note Today's Date and Time: [...] urine cultures: No growth Urine culture from [place]: E coli, multi-sensitive Patient will need treatment [...] lithotripsy in the future. Infection Control Recommendations Melrose Precautions Antimicrobial Stewardship Recommendations Simplification of therapy [...] is a 51-year-old female who presents to [place] with a chief complaint of left flank pain that started at 4 AM on 07/18/2022. Patient states that the pain is intense and is radiating towards her left groin. Patient denies any fever, burning urination, urgency frequency, vomiting, loose stool, any shortness of breath or chest discomfort. Patient went to [place] and had a CT imaging done. 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 Urinalysis positive for leukocytes and nitrates and blood. White blood cell count 13.7 and creatinine of 1.45. Patient needed urology evaluation and nephrostomy tube placement . She was transferred to [place]. Urology was consulted. Urology plan for IR [...] Blood and urine cultures: No growth at [facility] Urine culture at [place] with E coli Patient reports tolerating Cipro [...] Cultures: Urine: 07-18-22: E coli- Multi-sensitive at [place] 07/18/2022: No growth 07/19/2022: Urinalysis: Turbid, glucose [...] the procedure including risks, benefits, and alternatives. Melrose protocol was followed. The patient's flank was [...] into the urinary bladder using a 4 Polish Kumpe the catheter; the Glidewire was exchanged [...] puncture of the lower pole calyx, 4 Polish Kumpe the catheter manipulation and glidewire extension into the urinary bladder. Subsequent images show the nephroureteral stent in satisfactory position. Impression Successful percutaneous left nephroureteral stent placement via lower pole, past a large staghorn calculus, with distal pigtail tip position in the urinary bladder, as above. Findings were discussed with KASH CLAY at 4:09 pm on 07/19/2022. Medical Decision Qtcfhj-Fsowqijt-Qmjtl: Medical Decision Making-Other: Note: Labs, medications, radiologic studies were reviewed with personal review of films Large amounts of data were reviewed Discussed with nursing Staff, materials planner Infection Control and Prevention measures reviewed All prior entries were reviewed Administer medications as ordered Prognosis: Good Discharge planning reviewed Follow up as outpatient. Thank you for allowing us to participate in the care of this patient. Please call with questions. Urban Noriega MD * Keo Guevara MD - 07/22/2022 7:45 AM EDT Physician Progress Note PATIENT: ASA THOMPSON CSN #: [id number] : 1970 ADMIT DATE: 07/18/2022 3:19 PM [...] Thank you, Judith LUNA,RN, CDI email - [email or web address]- [phone] office hours [id number] Options provided: -- Sepsis, [...] from the original note were not included. [facility] Internal Medicine Teaching Residency Program Inpatient Daily Progress Note Patient: Asa Thompson Date of : 1970 Acct: [id number] Room: 0541/0541-01 Admit date: 07/18/2022 Today's date: [...] positive for E. Coli- multi sensitive at [place] Lactic acid-1.5-2.3 Urology on board-okay to be [...] breath or chest discomfort. Patient went to [place] and CT imaging showed partially obstructing large staghorn calcification in left renal pelvis and perinephric edema-small amount of air and gas concerning for pyelonephritis.UA positive for leukocytes and nitrites with blood.WBC count 13.7 and creatinine of 1.45. Patient needed urology evaluation and nephrostomy tube placement so transferred to the [place]. Urology consulted plan for IR tomorrow. patient [...] Keo Guevara MD Internal Medicine Resident, PGY-1 [facility]; [place], [place] 07/22/2022, 7:44 AM Associated attestation - Livia Cantrell MD - 07/22/2022 2:02 PM EDT Attending Physician Statement I have discussed the case of Asa Thompson, including pertinent history and exam findings with the resident/fellow/medical student/SELF SEALING FUEL TANK BUILDER/PA. I have seen and examined the patient and the trevizo elementsof the encounter have been performed by me. I agree with the assessment, plan and orders as documented by the resident/fellow/medical student/SELF SEALING FUEL TANK BUILDER/PA With changes made to the note as [...] been improving Microbiologic data remains negative at [facility] activity Percutaneous nephrostomy tube is draining [...] Date/Time NITRU NEGATIVE 07/20/2022 03:05 PM COLORU [place] 07/20/2022 03:05 PM PHUR 5.0 07/20/2022 03:05 [...] 07/21/2022 1:36 PM EDT Physical Therapy Facility/Department: [address] [place] Physical Therapy Initial Assessment Name: [...] Ambulation Assistance: Independent Transfer Assistance: Independent Active Despatching And Receiving Clerk: Yes Mode of Transportation: [facility] Occupation: Unemployed Leisure & Hobbies: Everything -staying [...] 07/21/2022 12:07 PM EDT Occupational Therapy Facility/Department[facility] [address] [facility] Therapy Initial Assessment Name: Asa Thompson [...] Ambulation Assistance: Independent Transfer Assistance: Independent Active Despatching And Receiving Clerk: Yes Mode of Transportation: [facility] Occupation: Unemployed Leisure & Hobbies: Everything -staying [...] (degrees) Right Hand AROM: WFL AM-PAC Score AM-[facility] Inpatient Daily Activity Raw Score: 24 (07/21/221207) [...] were not included. [facility] - Progress Note Today's Date and Time: [...] up to a week. Infection Control Recommendations [place]rose Precautions Antimicrobial Stewardship Recommendations Simplification of therapy [...] is a 51-year-old female who presents to [place] with a chief complaint of left flank pain that started at 4 AM on 07/18/2022. Patient states that the pain is intense and is radiating towards her left groin. Patient denies any fever, burning urination, urgency frequency, vomiting, loose stool, any shortness of breath or chest discomfort. Patient went to [place] and had a CT imaging done. 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 Urinalysis positive for leukocytes and nitrates and blood. White blood cell count 13.7 and creatinine of 1.45. Patient needed urology evaluation and nephrostomy tube placement . She was transferred to [place]. Urology was consulted. Urology plan for IR [...] NEPHROSTOMY PERCUTANEOUS LEFT 07/19/2022 Noman Mullen MD [facility] SPECIAL PROCEDURES Medications: insulin lispro 0-16 [...] the procedure including risks, benefits, and alternatives. Melrose protocol was followed. The patient's flank was [...] into the urinary bladder using a 4 Polish Kumpe the catheter; the Glidewire was exchanged [...] puncture of the lower pole calyx, 4 Polish Kumpe the catheter manipulation and glidewire extension into the urinary bladder. Subsequent images show the nephroureteral stent in satisfactory position. Impression Successful percutaneous left nephroureteral stent placement via lower pole, past a large staghorn calculus, with distal pigtail tip position in the urinary bladder, as above. Findings were discussed with KASH CLAY at 4:09 pm on 07/19/2022. Medical Decision Hprdlk-Tjbvvdhd-Newec: Medical Decision Making-Other: Note: Labs, medications, radiologic studies were reviewed with personal review of films Large amounts of data were reviewed Discussed with nursing Staff, materials planner Infection Control and Prevention measures reviewed All prior entries were reviewed Administer medications as ordered Prognosis: Good Discharge planning reviewed Follow up as outpatient. Thank you for allowing us to participate in the care of this patient. Please call with questions. Urban Noriega MD * Phillip Garrett MD - 07/21/2022 8:22 AM EDT Images from the original note were not included. [facility] Internal Medicine Teaching Residency Program Inpatient Daily Progress Note Patient: Asa Thompson Date of : 1970 Acct: [id number] Room: 0541/0541-01 Admit date: 07/18/2022 Today's date: [...] breath or chest discomfort. Patient went to [place] and CT imaging showed partially obstructing large staghorn calcification in left renal pelvis and perinephric edema-small amount of air and gas concerning for pyelonephritis.UA positive for leukocytes and nitrites with blood.WBC count 13.7 and creatinine of 1.45. Patient needed urology evaluation and nephrostomy tube placement so transferred to the [place]. Urology consulted plan for IR tomorrow. patient [...] time PT/OT/SW-consulted we will follow-up Discharge Planning: manager of drilling consulted Phillip Garrett MD Internal Medicine Resident, PGY-1 [facility]; [place], [place] 07/21/2022, 8:22 AM Associated attestation - Livia Cantrell MD - 07/21/2022 8:43 PM EDT Attending Physician Statement I have discussed the case of Asa Thompson, including pertinent history and exam findings with the resident/fellow/medical student/SELF SEALING FUEL TANK BUILDER/PA. I have seen and examined the patient and the trevizo elementsof the encounter have been performed by me. I agree with the assessment, plan and orders as documented by the resident/fellow/medical student/SELF SEALING FUEL TANK BUILDER/PA With changes made to the note as [...] 11:26 PM EDT [facility] [place] Shift date: 07/20/22 Shift day: Monday Shift # 2 Room # 0541/0541-01 Name: Asa Goyal Lucriley Bahai: Place of orthodox: Referral: Routine Visit Admit Date & Time: 07/18/2022 3:19 PM Assessment: Asa Thompson is a 51 y.o. female Intervention: Wheelchair Driver introduced self and title as fishing rod mechanic. Patient did not appear to mind fishing rod mechanic presence. Wheelchair Driver offered space for patient to express feelings, needs, and concerns and provided a ministry presence. Patient appeared to be resting and coping. Outcome: While gonzález/spirituality were not discussed, patient appeared receptive to fishing rod mechanic presence.3 Plan: Chaplains will remain available to offer spiritual and emotional support as needed. . Spiritual Care Department [facility] [phone] * TERRY BERGMAN - 07/20/2022 9:30 PM EDT Orders received for patients high BP * TERRY BERGMAN - 07/20/2022 9:08 PM EDT Notified turkey boner resident for internal medicine of patients current [...] from the original note were not included. [facility] Internal Medicine Teaching Residency Program Inpatient Daily Progress Note Patient: Asa Thompson Date of : 1970 Acct: [id number] Room: Admit date: 07/18/2022 Today's date: 07/20/22 Number of days in the hospital: 2 SUBJECTIVE Admitting Diagnosis: Calculous pyelonephritis CC: Left flank pain Pt examined at bedside. Chart & results reviewed. No acute event overnight Patient remained afebrile hemodynamically stable Pain better controlled with pain meds IR guided left percutaneous nephrostomy tube placement yesterday evening-output 500 so far WBC-12.3-7.1-10.2 Creatinine 1.65-1.71-2.11 [id number]-corrected sodium 133 Lactic acid-3.8 Glucose-416 ROS: Constitutional: [...] breath or chest discomfort. Patient went to [place] and CT imaging showed partially obstructing large staghorn calcification in left renal pelvis and perinephric edema-small amount of air and gas concerning for pyelonephritis.UA positive for leukocytes and nitrites with blood.WBC count 13.7 and creatinine of 1.45. Patient needed urology evaluation and nephrostomy tube placement so transferred to the [place]. Urology consulted plan for IR tomorrow. patient [...] time PT/OT/SW-consulted we will follow-up Discharge Planning: manager of drilling consulted Keo Guevara MD Internal Medicine Resident, PGY-1 [facility]; [place], [place] 07/20/2022, 8:06 AM Associated attestation - Livia Cantrell MD - 07/20/2022 7:52 PM EDT Attending Physician Statement I have discussed the case of Asa Thompson, including pertinent history and exam findings with the resident/fellow/medical student/SELF SEALING FUEL TANK BUILDER/PA. I have seen and examined the patient and the trevizo elementsof the encounter have been performed by me. I agree with the assessment, plan and orders as documented by the resident/fellow/medical student/SELF SEALING FUEL TANK BUILDER/PA With changes made to the note as [...] cysto, URS, HLL 7 years prior in [place], [place] with Dr. Harrison Recurrent UTIs, 4 [...] score is now 5.12. Per sepsis protocol, fha underwriter ordered lactic and blood cultures. Provider notified. * Alexsandra Mckinley RN - 07/20/2022 3:13 AM EDT Wheelchair Driver notified provider of infection concerns. Patient's WBC [...] original note were not included. Occupational Therapy [facility] Occupational Therapy Not Seen Note DATE: [...] cysto, URS, HLL 7 years prior in [place], [place] with Dr. Harrison Recurrent UTIs, 4 [...] from the original note were not included. [facility] Internal Medicine Teaching Residency Program Inpatient Daily Progress Note Patient: Asa Thompson Date of : 1970 Acct: [id number] Room: [facility] [place] [address] Admit date: 07/18/2022 Today's date: 07/19/22 Number [...] breath or chest discomfort. Patient went to [place] and CT imaging showed partially obstructing large staghorn calcification in left renal pelvis and perinephric edema-small amount of air and gas concerning for pyelonephritis.UA positive for leukocytes and nitrites with blood.WBC count 13.7 and creatinine of 1.45. Patient needed urology evaluation and nephrostomy tube placement so transferred to the [place]. Urology consulted plan for IR tomorrow. patient [...] time PT/OT/SW-consulted we will follow-up Discharge Planning: manager of drilling consulted Keo Guevara MD Internal Medicine Resident, PGY-1 [facility]; [place], [place] 07/19/2022, 6:40 AM Associated attestation - Livia Cantrell MD - 07/19/2022 7:45 PM EDT Attending Physician Statement I have discussed the case of Asa Thompson, including pertinent history and exam findings with the resident/fellow/medical student/SELF SEALING FUEL TANK BUILDER/PA. I have seen and examined the patient and the trevizo elementsof the encounter have been performed by me. I agree with the assessment, plan and orders as documented by the resident/fellow/medical student/SELF SEALING FUEL TANK BUILDER/PA With changes made to the note as [...] [N10] Calculous pyelonephritis [N20.0]. See H&P of admitting/marketing research intern resident for more details. Transferred from [facility] Patient came in due to left [...] Brooklynn Ferrari MD Department of Internal Medicine [facility] [place] 07/19/2022, 12:39 AM documented in this encounterB[facility] [employer] Phone: 1(131) 725-206009-16-2022 Hospital Discharge instructions* Discharge Instructions* Keo Guevara MD - 07/22/2022 12:18 PM EDT You were admitted for staghorn renal calculi and your urine culture from [place] was positive for Ecoli. Please take ciprofloxacin [...] Information Primary Emergency Contact: marlenyharryarian Relation: Child Laborer Concrete Plant needed? No Past Surgical History: Past Surgical History: Procedure Laterality Date IR NEPHROSTOMY PERCUTANEOUS LEFT 07/19/2022 IR NEPHROSTOMY PERCUTANEOUS LEFT 07/19/2022 Noman Mullen MD [facility] SPECIAL PROCEDURES Immunization History: There is no immunization history on file for this patient. Active Problems: Patient Active Problem List Diagnosis Code Calculous pyelonephritis N20.0 OMAR (acute kidney injury) ([facility]) N17.9 Type 2 diabetes mellitus, with long-term current use of insulin ([facility]) E11.9, Z79.4 Leukocytosis D72.829 Hypothyroidism E03.9 Depression F32.A Hypertension I10 History of coronary artery disease Z86.79 Acute pyelonephritis N10 Left renal atrophy N26.1 Kidney stone N20.0 Sepsis with acute renal failure without septic shock ([facility]) A41.9, R65.20, N17.9 History of penicillin allergy [...] (116 kg) Mental Status: {IP PT MENTAL STATUS:95376} IV Access: { TIMO IV ACCESS:191064193} Nursing Mobility/ADLs: Walking {CHP DME ADLs:686057389} Transfer {CHP DME ADLs:059768821} Bathing {CHP DME ADLs:999291728} Dressing {CHP DME ADLs:339896210} Toileting {CHP DME ADLs:157074843} Feeding {CHP DME ADLs:137648126} Industrial Insulator {CHP DME ADLs:244501958} Med Delivery { TIMO MED Delivery:085892997} Wound Care Documentation and Therapy: Elimination: Continence: Bowel: {YES / NO:} Bladder: {YES / NO:} Urinary Catheter: {Urinary Catheter:730883079} Colostomy/Ileostomy/Ileal Conduit: {YES / NO:} Date of Last BM: Intake/Output Summary (Last 24 hours) at 07/22/2022 1349 Last data filed at 07/22/2022 0813 Gross per 24 hour Intake 1594.2 ml Output 3875 ml Net -2280.8 ml I/O last 3 completed shifts: In: 4236.1 [P.O.:580; I.V.:3350.1; IV Piggyback:306] Out: 6520 [Urine:6520] Safety Concerns: { TIMO Safety Concerns:543314736} Impairments/Disabilities: { TIMO Impairments/Disabilities:633786719} Nutrition Therapy: Current Nutrition Therapy: { TIMO Diet List:451111444} Routes of Feeding: {[facility] Other Feedings:885104756} Liquids: {[facility] liquid thickness:89325} Daily Fluid Restriction: {[facility] DME Yes amt example:839364318} Last Modified Barium Swallow with Video (Video Swallowing Test): {Done Not Done Date:} Treatments at the Time of Hospital Discharge: Respiratory Treatments: Oxygen Therapy: {Therapy; copd oxygen:13313} Ventilator: { CC Vent List:437678919} Rehab Therapies: {THERAPEUTIC INTERVENTION:5482224116} Weight Bearing Status/Restrictions: {[facility] Weight Bearin} Other Medical Equipment (for information only, NOT a DME order): {EQUIPMENT:707218653} Other Treatments: Patient's personal belongings (please select all that are sent with patient): {[facility] DME Belongings:389239373} RN SIGNATURE: {Esignature:783394985} CASE MANAGEMENT/SOCIAL WORK SECTION Inpatient Status Date: Readmission Risk Assessment Score: Readmission Risk Risk of Unplanned Readmission: 19 Discharging to Facility/ Agency Name: Address: Phone: Fax: Dialysis Facility (if applicable) Name: Address: Dialysis Schedule: Phone: Fax: Electric Detector Operator/Quartz Mounter signature: {Esignature:586100457} PHYSICIAN SECTION Prognosis: {Prognosis:2694156480} Condition at Discharge: { Patient Condition:102462836} Rehab Potential (if transferring to Rehab): {Prognosis:0910599450} Recommended Labs or Other Treatments After Discharge: Physician Certification: I certify the above information and transfer of Asa Thompson is necessary for the continuing treatment of the diagnosis listed and that she requires {Admit to Appropriate Level of Care:88359} for {GREATER/LESS:296192872} 30 days. Update Admission H&P: {CHP DME Changes in HandP:640826589} PHYSICIAN SIGNATURE: {Esignature:278588214} documented in this encounterB[facility] [employer] Phone: 1(688) 494-203109-13-2022 NotePROCEDURE: PERCUTANEOUS ANTEGRADE PYELOGRAM LEFT PERCUTANEOUS NEPHROURETERAL STENT PLACEMENT ULTRASOUND AND FLUOROSCOPY GUIDANCE MODERATE CONSCIOUS SEDATION 07/19/2022 HISTORY: ORDERING SYSTEM PROVIDED HISTORY: firsthealthorn TECHNOLOGIST PROVIDED HISTORY: shiraorn Is the patient [...] the procedure including risks, benefits, and alternatives. [place] protocol was followed. The patient's flank was [...] into the urinary bladder using a 4 Polish Kumpe the catheter; the Glidewire was exchanged [...] puncture of the lower pole calyx, 4 Polish Kumpe the catheter manipulation and glidewire extension [...] Signed by: Noman Mullen MD 07/19/22 Final [facility]MerSan [facility]09-13-2022 NotePROCEDURE: PERCUTANEOUS ANTEGRADE PYELOGRAM LEFT PERCUTANEOUS [...] the procedure including risks, benefits, and alternatives. [place] protocol was followed. The patient's flank was [...] into the urinary bladder using a 4 Polish Kumpe the catheter; the Glidewire was exchanged [...] puncture of the lower pole calyx, 4 Polish Kumpe the catheter manipulation and glidewire extension into the urinary bladder. Subsequent images show the nephroureteral stent in satisfactory position. [facility] RIS [id number] NoteHNO ID: [id number] Author: Liliana Avila, PhD Service: ? Author Type: Physician Type: Progress Notes Filed: 03/11/2022 3:32 PM Note Text: [facility] Progress Note 03/11/2022 Billing code: [id number]/[place] 3:10PM - I called the patient to [...] her evaluation/medical records. Will send her a [employer]) message with instructions. Liliana Avila, PhD Clinical Health PsychologistOhiohealth [facility]01-20-2022 NoteHNO ID: [id number] Author: Jeannine Tamez, PhD Service: ? Author Type: Psychologist Type: Progress Notes Filed: 11/25/2021 8:38 AM Note Text: [facility] Patient no-showed appointment despite phone call and HIPAA compliant VM. Patient given instructions on rescheduling. Jeannine Tamez, PhD [place]ologistNatalie [place] [address]-03-2021 NoteHNO ID: [id number] Author: Ghazal Doyle RD Service: ? Author [...] Doyle RDOhiohealth Grady Memorial Hospital08-31-2021 NoteHNO ID: [id number] Author: Ghazal Doyle RD Service: ? Author Type: Registered Dietitian Type: Progress Notes Filed: 07/06/2021 11:52 AM Note Text: Telephone call placed to patient at 11:49 AM at [phone]. Received forwarded My Chart message from Abraham Pacheco RN regarding hypoglycemia on liquid diet phase. No answer . Left message with contact telephone number [phone] and instructions to communicate with this provider via [employer] ([employer]) when able. Ghazal Doyle RDOhiohealth Grady Memorial Hospital08-16-2021 NoteHNO ID: [id number] Author: Quincy Rodriguez MD Service: ? Author [...] complication, with long-term current use of insulin ([facility]) Preoperative cardiovascular examination Resolved Hospital Problems No [...] AND Bariatric Surgery Fellow Bariatric AND Metabolic [facility] STAFF NOTE I have seen and [...] counseling and educating the patient/family/caregiver. Quincy Rodriguez, [facility]06-04-2021 NoteHNO ID: [id number] Author: Jeannine Tamez, PhD Service: ? Author Type: Psychologist Type: Progress Notes Filed: 04/09/2021 2:44 PM Note Text: [facility] Receipt of Outside Records Patient: Asa Thompson Date: 04/09/2021 Received records from patient's physician, Garry Ramos MD of [place] [facility] (Address: [address] [place] [address] [place] [address]; ; ). Asa is off of all psychiatric meds and is stable for gastric bypass surgery. These records have been sent to scanning. Plan: *All requirements have been met Jeannine Tamez, PhD PsychologistOhiohealth Grady [facility] Hospital05-26-2021 NoteHNO ID: [id number] Author: Ghazal Doyle RD Service: ? Author Type: Registered Dietitian Type: Progress Notes Filed: 03/31/2021 9:29 AM Note Text: [facility] Nutrition Therapy: Virtual Consult ? Re-assessment This visit was performed virtually due to the COVID-19 epidemic as an effort to protect patients and minimize exposure. Consent from patient received to conduct visit virtually. This Team Access Model visit is a virtual encounter. It required patient-provider interaction for the medical decision making as documented below. This visit completed via [employer] (formerly [employer]) Now as Zoom did not connect PROGRESS: [...] - met 6. Start researching post-op vitamins: [employer], [employer], or [employer]-specific websites- - met Pre-op goal weight:?238 lbs [...] artery disease) 10/06/2010 - DM (diabetes mellitus) ([facility]) - Hyperlipidemia - Hypothyroidism - Nephrolithiasis - [...] [employer] (more content not included)... [facility] [place] hospitalEvaluation [facility]* Diagnosis Calculous pyelonephritis- Primary Kidney [...] non-steroidal anti-inflammatories documented in this encounter JAYDEN [employer] Phone: evaluation note* Diagnosis Nephrostomy tube displaced (HCC)- Primary Urinary complications Nephrostomy complication (HCC) documented in this encounter [facility] [employer] Phone: History general Narrative - Reported* Type Description Date Medical History Hypercholesterolemia Medical History DM Medical History Hypothyroid Medical History diabetic neuropathy Surgical History ALIZA BSO 2000 Surgical History Heart catherization 2010 Surgical History kidney stone Surgical History left kidney removed 10/26/2022 Hospitalization History See past surgical histor y Hospitalization History Heart Event 2009 [facility] Other Hospital Discharge instructions* Attachments The following attachments cannot be sent through Care Everywhere. * Nephrostomy Tube Care (Amharic) documented in this encounterBON [employer] Phone: InstructionsNot on filedocumented in this encounter [...] W PHARMACOLOGICAL INTERVENTION Christi Chance, DO [address] [place] [address] Referral ID Status Reason Start Date Expiration Date Visits Re quested Visits Authorized [id number] Open 08/03/2022 08/03/2023 1 1 Additional Source Comments INFORMATION SOURCE (unrecogn ized section and content) DATE CREATED AUTHOR 04/03/2021 [facility] DATE CREATED AUTHOR AUTHOR'S ORGANIZ ATION 03/15/2022 [facility] DATE CREATED AUTHOR AUTHOR'S ORGANIZ ATION 08/09/2022 [facility] DATE CREATED AUTHOR AUTHOR'S ORGANIZ ATION 08/11/2022 [facility] DATE CREATED AUTHOR AUTHOR'S ORGANIZ ATION 03/17/2023 [facility] DATE CREATED AUTHOR AUTHOR'S ORGANIZ ATION 08/07/2024 [facility] DATE CREATED AUTHOR AUTHOR'S ORGANIZ ATION 09/02/2024 [facility] Reason for Visit (unrecogniz ed section and content) Reason Comments Flank Pain Specialty Diagnoses / Procedures Referred By Serina bonilla Referred To Contact Diagnoses Kidney stone Acute pyelonephritis Calculous pyelonephritis Livia Cantrell MD [address] [address] [facility] [address] [place] [address] Referral ID Status Reason Start Date Expiration Date Visits Re quested Visits Authorized [id number] 1 1 Reason Comments Other nephrostamy tube got pulled. tub is broken and leaking urine. not able to gett it to stop leaking Specialty Diagnoses / Procedures Referred By Serina bonilla Referred To Contact Diagnoses Nephrostomy tube displaced (HCC) Nephrostomy complication (HCC) Paloma Arceo MD [address] [place] [address] [facility] [address] [place] [address] Referral ID Status Reason Start Date Expiration Date Visits Re quested Visits Authorized [id number] 1 1 Reason Comments Med Refill Ordered [...] 1 dose 0537 (New Bag - Provider: Alexasndra Mckinley RN)0743 (Stopped - Provider: Ligia Mattson [...] parameters not met)1226 (Not Given - Provider: Crhistine Campa RN - Reason: Order parameters not [...]
Care Teams (unrecognized sec tion and content) Student Career Development Specialist Relationship Specialty Start Date End Date Garry Ramos MD [address] [place] [address] PCP - General Family Medicine 07/22/22 Student Career Development Specialist Relationship Specialty Start Date End Date Garry Ramos MD [address] [place] [address] PCP - General Family Medicine 07/22/22 Student Career Development Specialist Relationship Specialty Start Date End Date Garry [...] BE BASED ON THE PRIMARY CLINICAL RECORDS. [employer]. provides no warranty or guarantee of the accuracy or completeness of information in this document.
[2024-09-13 07:55] LABS: Estimated GFR (African America 28 (>=60 mL/min/1.73m^2); Estimated GFR (Non-African Ame 23 (>=60 mL/min/1.73m^2)
--- NOTE | 2024-09-13 08:00 | CA_ITS ---
Patient Name: ASA CHEN MR#: [id number] : 1970 Exam Date: 09/13/2024 Ordering Doctor: DR DUGLAS REEDER M.D. ECHOCARDIOGRAM REPORT PROCEDURE: CA ECHO W/ CON INDICATIONS: Intracardiac thrombus COMPARISON: None. DESCRIPTION: COMPLETE ECHOCARDIOGRAM Real-time transthoracic echocardiography with 2D, M-mode, spectral and color flow Doppler performed. QUALITY: Technical quality was good. LEFT VENTRICLE: Normal chamber size. Mild proximal septal hypertrophy (sigmoid septum). LV EF: Normal left ventricular ejection fraction 65%, no wall motion abnormalities. Possible immobile clot attached to apical septal segment. DIASTOLIC: unable to assess due to mitral annulus calcification. ATRIAL SEPTUM: LEFT ATRIUM: Normal chamber size. RIGHT ATRIUM: Normal chamber size. RIGHT VENTRICLE: Normal chamber size. Normal right ventricular systolic function. TRICUSPID VALVE:Normal mobility and thickness. No stenosis with no regurgitation. MITRAL VALVE: Normal mobility and thickness. No mitral regurgitation. Mild mitral valve stenosis. Moderate mitral annular calcification. Mobile echogenic structure seen attached to the posterior leaflet at the ventricular site of annulus, clot versus vegetation is suspected, recommend ANGEL. AORTIC VALVE: Normal trileaflet appearance. No visible sclerosis. Normal leaflet mobility. No evidence of aortic valve stenosis. No aortic regurgitation. AORTIC ROOT: Normal diameter and appearance. PULMONIC VALVE: Normal thickness and mobility. No stenosis. No regurgitation. PERICARDIUM: No evidence of pericardial effusion. IVC: Not well visualized. PLEURA: CONCLUSION: Normal LV chamber size. Mild proximal septal hypertrophy (sigmoid septum). Normal left ventricular ejection fraction 65%, no wall motion abnormalities. Possible immobile clot attached to apical septal segment. Normal chamber size. Normal right ventricular systolic function. Mild mitral valve stenosis. Moderate mitral annular calcification. Mobile echogenic structure seen attached to the posterior leaflet at the ventricular site of annulus, clot versus vegetation is suspected, recommend ANGEL. Adult Echocardiography Procedure Report Left Ventricle LVEDD (3.7 - 5.6 cm): 4.07 cm LVESD (2.2 - 4.0 cm): 2.30 cm LVIVS thickness (0.6 - 1.2 cm): 1.31 cm LVPW thickness (0.5 - 1.0 cm): 0.85 cm e': 0.06 m/s E - e': 20.91 LVOT Max Gradient: 5.39 mm[Hg] LVOT Area (cm2): 1.16 m/s Peak Velocity (LVOT): 1.16 m/s Mean Velocity (LVOT): LVOT Diameter 1.89 cm Left Ventricular Ejection Fraction: Left Atrium LA Volume Index (2D A2C): 21.79 ml/m2 Left Atrium Systolic Dimension: 4.15 cm Mitral Valve MV E to A Ratio: 0.85 MV Max Gradient: MV Mean Gradient: Mitral Valve A-Wave Peak Velocity: 1.52 m/s Mitral Valve E-Wave Peak Velocity: 1.29 m/s Cardiovascular Orifice Area: Right Ventricle RV Internal Diastolic Dimension: Aorta AO Root Diam: 3.06 cm Ascending Ao Diam: Aortic Valve AoV Area (Peak [place]): 1.64 cm2, 1.64 cm2 AoV Area (VTI): Deceleration Real: Pressure Half-Time: Peak Velocity(Antegrade Flow): 1.99 m/s Peak Gradient(Antegrade Flow): 15.85 mm[Hg] Mean Velocity(Antegrade Flow): Mean Gradient(Antegrade Flow): Velocity Time Integral: Tricuspid Valve Peak Velocity (Regurgitant Flow): Peak Velocity: Pulmonic Valve Mean Gradient: Mean Velocity: Peak Velocity: Peak Gradient: 3.97 mm[Hg], 4.13 mm[Hg] Right Atrium Right Atrium Systolic Pressure: 35.98 ml, 35.98 ml Dictated by: Roman Carlos MD on 09/13/2024 at 21:03 Approved by: Roman Carlos MD on 09/13/2024 at 21:08
[2024-09-13] MEDS: SULFUR HEXAFLUORIDE MICROSPHR 25 MG/5 ML VIAL 10 MG IV (09:38)
== END 2024-09-13 07:34 | disposition home or self-care (01) ==
LOC: LAB 07:33
PROVIDERS: PCP Family Medicine; Visit Provider Internal Medicine Interventional Cardiology
DX: R07.89 Other chest pain (principal); I51.3 Intracardiac thrombosis, not elsewhere classified; G45.9 Transient cerebral ischemic attack, unspecified
CPT/HCPCS: 36415; 82565; C8929; Q9950

== ENCOUNTER 2024-09-23 14:15 | Outpatient (OUT) | payer OTHER, SELFPAY ==
[2024-09-23 14:44] LABS: Basophils Percent Auto 0.6 % (0.2-2.0); Eosinophils Absolute Auto 0.2 10^3/uL (0.0-0.7); Eosinophils Percent Auto 2.2 % (0.9-7.0); Hematocrit 34.8 % (36.0-48.0); Hemoglobin 11.7 g/dL (12.0-16.0); Immature Granulocytes Abs Auto 0.04 10^3/uL (0.00-0.03); Immature Granulocytes Pct Auto 0.6 % (0.0-0.5); Lymphocytes Absolute Auto 1.5 10^3/uL (1.2-3.8); Lymphocytes Percent Auto 22.6 % (20.5-60.0); Mean Corpuscular HGB Conc 33.6 g/dL (29.9-35.2); Mean Corpuscular Hemoglobin 28.7 pg (26.7-34.0); Mean Corpuscular Volume 85.5 fL (81.0-99.0); Mean Platelet Volume 10.1 fL (9.5-13.5); Monocytes Absolute Auto 0.5 10^3/uL (0.3-0.8); Monocytes Percent Auto 7.6 % (1.7-12.0); Neutrophils Absolute Auto 4.4 10^3/uL (1.4-6.5); Neutrophils Percent Auto 66.4 % (43.0-75.0); Platelet Count 333 10^3/uL (150-450); Red Blood Count 4.07 10^6/uL (4.20-5.40); Red Cell Distribution Width 12.6 % (11.0-15.0); White Blood Count 6.7 10^3/uL (4.0-11.0)
[2024-09-23 15:15] LABS: Alanine Aminotransferase 20 U/L (14-59); Albumin Globulin Ratio 0.8; Albumin Level 3.2 g/dL (3.4-5.0); Alkaline Phosphatase 102 U/L (46-116); Anion Gap 13.5; Aspartate Amino Transferase 13 U/L (15-37); BUN Creatinine Ratio 14.6; Bilirubin Total 0.6 mg/dL (0.2-1.0); Calcium 9.3 mg/dL (8.5-10.1); Carbon Dioxide 24.6 mmol/L (21.0-32.0); Chloride 103 mmol/L (98-107); Chol HDL Ratio 5.5; Cholesterol 227 mg/dL (<=200); Estimated GFR (African America 31 (>=60 mL/min/1.73m^2); Estimated GFR (Non-African Ame 25 (>=60 mL/min/1.73m^2); Free T3 2.61 pg/mL (2.18-3.98); Globulin 4.1 g/dL; Glucose 187 mg/dL (74-106); HDL Cholesterol 41 mg/dL (40-60); Potassium 4.1 mmol/L (3.5-5.1); Sodium 137 mmol/L (136-145); Total Protein 7.3 g/dL (6.4-8.2); Triglycerides 504 mg/dL (<=150); VLDL CHOLESTEROL 100.8 mg/dL
[2024-09-23 15:16] LABS: LDL Cholesterol Direct 97 mg/dL
[2024-09-23 15:35] LABS: Estimated Average Glucose 220 mg/dL; Glycohemoglobin A1C 9.3 % (4.5-6.2)
== END 2024-09-23 14:16 | disposition home or self-care (01) ==
LOC: LAB 14:16
PROVIDERS: PCP Family Medicine; Visit Provider Family Medicine
DX: J20.9 Acute bronchitis, unspecified (principal); E11.40 Type 2 diabetes mellitus with diabetic neuropathy, unspecified; I10 Essential (primary) hypertension; E78.00 Pure hypercholesterolemia, unspecified; Z12.12 Encounter for screening for malignant neoplasm of rectum; D64.9 Anemia, unspecified; E03.9 Hypothyroidism, unspecified
CPT/HCPCS: 36415; 80053; 80061; 83036; 83525; 83540; 83721; 84436; 84443; 84481; 85025

== ENCOUNTER 2024-10-01 09:36 | Outpatient (OUT) | payer OTHER, SELFPAY ==
--- NOTE | 2024-10-01 09:38 | CT_ITS ---
The [address] [address] Patient Name: ASA CHEN MRN: [id number] date: 1970 Sex: F Assigned Patient Location: CT Current Patient Location: CT Accession/Order Number: [id number] Exam Date: 10/01/2024 09:42 Report Date: 10/01/2024 12:25 At the request of: GARRY RAMOS Procedure: CT head/brain wo con EXAM: CT head/brain wo con HISTORY: Transient Ischemic Attack COMPARISON: None. TECHNIQUE: Axial soft tissue and bone windows through the calvarium. CT dose reduction technique was used including Automated Exposure Control. Findings: There is partial left anterior ethmoid air cell opacification. The remainder of the paranasal sinuses and mastoid air cells are well aerated. No air-fluid levels. No extra-axial fluid collection. No intra-axial or extra-axial. No mass effect or midline shift. The williamson-white matter differentiation is preserved. The brain parenchymal volume is age appropriate. The ventricles are nondilated. The basal cisterns are patent. The craniovertebral junction is unremarkable. CT/CT head/brain wo con IMPRESSION: 1. No acute intracranial abnormality. MRI is more sensitive for the evaluation of acute ischemia. Electronically authenticated by: MAGGY LAKE Date: 10/01/2024 12:25
== END 2024-10-01 09:37 | disposition home or self-care (01) ==
LOC: CT 09:36
PROVIDERS: PCP Family Medicine; Visit Provider Family Medicine
DX: G45.9 Transient cerebral ischemic attack, unspecified (principal)
CPT/HCPCS: 70450

== ENCOUNTER 2025-01-13 15:02 | Outpatient (OUT) | payer OTHER, SELFPAY ==
--- NOTE | 2025-01-13 15:29 | XR_ITS ---
The [address] [address] Patient Name: ASA CHEN MRN: [id number] date: 1970 Sex: F Assigned Patient Location: LAB Current Patient Location: Accession/Order Number: [id number] Exam Date: 01/13/2025 17:35 Report Date: 01/14/2025 15:15 At the request of: GARRY RAMOS MD Procedure: XR foot RT 2V 2 views right foot plain film COMPARISON:None HISTORY: Right foot injury. ACUTE FINDINGS: None DEGENERATIVE CHANGE: Calcaneal spurring SOFT TISSUE FINDINGS: Unremarkable JOINT EFFUSION: None POSTOP CHANGES: None BONE MINERALIZATION: Adequate XR/XR foot RT 2V IMPRESSION: No acute displaced fracture Impression dictated by: Ramez Louis M.D.01/14/2025 3:15 PM Dictation Location: [place] [address] Electronically authenticated by: [id number] Y Date: 01/14/2025 15:15
[2025-01-13 15:46] LABS: Estimated Average Glucose 223 mg/dL; Glycohemoglobin A1C 9.4 % (4.5-6.2)
[2025-01-13 15:56] LABS: Basophils Percent Auto 0.3 % (0.2-2.0); Eosinophils Absolute Auto 0.1 10^3/uL (0.0-0.7); Eosinophils Percent Auto 0.9 % (0.9-7.0); Hematocrit 37.4 % (36.0-48.0); Hemoglobin 12.6 g/dL (12.0-16.0); Immature Granulocytes Abs Auto 0.03 10^3/uL (0.00-0.03); Immature Granulocytes Pct Auto 0.3 % (0.0-0.5); Lymphocytes Absolute Auto 2.2 10^3/uL (1.2-3.8); Lymphocytes Percent Auto 23.3 % (20.5-60.0); Mean Corpuscular HGB Conc 33.7 g/dL (29.9-35.2); Mean Corpuscular Hemoglobin 27.6 pg (26.7-34.0); Mean Platelet Volume 9.6 fL (9.5-13.5); Monocytes Absolute Auto 0.5 10^3/uL (0.3-0.8); Monocytes Percent Auto 5.3 % (1.7-12.0); Neutrophils Absolute Auto 6.7 10^3/uL (1.4-6.5); Neutrophils Percent Auto 69.9 % (43.0-75.0); Platelet Count 406 10^3/uL (150-450); Red Blood Count 4.56 10^6/uL (4.20-5.40); Red Cell Distribution Width 12.9 % (11.0-15.0); White Blood Count 9.6 10^3/uL (4.0-11.0)
[2025-01-13 16:13] LABS: Alanine Aminotransferase 27 U/L (14-59); Albumin Globulin Ratio 0.8; Albumin Level 3.5 g/dL (3.4-5.0); Alkaline Phosphatase 135 U/L (46-116); Aspartate Amino Transferase 12 U/L (15-37); BUN Creatinine Ratio 21.6; Bilirubin Total 0.5 mg/dL (0.2-1.0); Calcium 9.6 mg/dL (8.5-10.1); Carbon Dioxide 19.7 mmol/L (21.0-32.0); Chloride 101 mmol/L (98-107); Chol HDL Ratio 4.6; Cholesterol 232 mg/dL (<=200); Estimated GFR (African America 34 (>=60 mL/min/1.73m^2); Estimated GFR (Non-African Ame 28 (>=60 mL/min/1.73m^2); Free T3 2.87 pg/mL (2.18-3.98); Globulin 4.3 g/dL; Glucose 193 mg/dL (74-106); HDL Cholesterol 50 mg/dL (40-60); Potassium 4.7 mmol/L (3.5-5.1); Sodium 136 mmol/L (136-145); Thyroid Stimulating Hormone <0.007 uIU/mL (0.358-3.740); Total Protein 7.8 g/dL (6.4-8.2); Triglycerides 368 mg/dL (<=150); VLDL CHOLESTEROL 73.6 mg/dL
== END 2025-01-13 15:03 | disposition home or self-care (01) ==
PROVIDERS: PCP Family Medicine; Visit Provider Family Medicine
DX: M79.671 Pain in right foot (principal); M54.16 Radiculopathy, lumbar region; E78.00 Pure hypercholesterolemia, unspecified; I10 Essential (primary) hypertension; K21.9 Gastro-esophageal reflux disease without esophagitis; E03.9 Hypothyroidism, unspecified; R53.83 Other fatigue; R73.09 Other abnormal glucose; Z12.12 Encounter for screening for malignant neoplasm of rectum; D64.9 Anemia, unspecified
CPT/HCPCS: 36415; 73620; 80053; 80061; 83036; 83540; 84436; 84443; 84481; 85025

== ENCOUNTER 2025-08-20 10:06 | Outpatient (OUT) | payer OTHER, SELFPAY ==
--- OUTSIDE RECORDS SUMMARY | 2025-08-20 10:20 | XMS_ITS | CCD ---
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 Name Role Phone GARRY RAMOS Referring Unavailable GARRY RAMOS Primary Care Unavailable SHOLA VILLAFUERTE Attending Unavailable SHOLA VILLAFUERTE Admitting Unavailable Garry Ramos MD Primary Care Provider [phone] CHRISTI CHANCE Referring Unavailable GARRY RAMOS Primary [...] DR CASTAÑEDA Admitting Unavailable HOY ., DR ACSTAÑEDA Primary Care Unavailable HOY ., DR CASTAÑEDA [...] Unavailanna ALCANTAR, DR MARAH Estrada Consulting Unavailable NAGIY, GARRY M Primary Care Unavailable MARAH ELLISON Attending Unavailable EN EPPERSON Admitting Unavailable TANIA VALERIO Consulting Unavailable ELTAHAWY, EHAB Referring Unavailable ELTAHAWY, EHAB Attending Unavailable Unavailable Unavailable Unavailable Allergies Allergy Classification Reported Allergen(s) Allergy Type Date of Onset Reaction(s) Facility Opioid Agonists (1 source) Morphine; Translations: [MORPHINE] Drug Allergy 9 [facility] Repository Penicillins (antibiotic) (1 source) Penicillin; Translations: [PENICILLIN] Drug Allergy 9 [facility] Rep[facility] (4 sources) HYDROmorphone; Translations: [HYDROMORPHONE] [facility] [address] [facility] Morphine; Translations: [MORPHINE] Drug Allergy 6 [employer] [facility] [employer] Work Phone: (6 sources) Penicillins; Translations: [Penicillins] Propensity to adverse reactions to drug 9 [facility] ([facility] Ciprofloxacin; Translations: [CIPROFLOXACIN] Drug Allergy 6 [employer] [facility] [employer] (1 source) penicillAMINE Drug Allergy [facility] [employer] Other (2 sources) Ciprofloxacin Drug Allergy 6 [facility] Rep[facility] (1 source) HYDROmorphone Drug Allergy [facility] Rep[facility] (2 sources) Morphine Drug Allergy 9 [facility] Medications Current Medications Medication Drug [...] Active Start: 07-23-2022 take 1 tablet by [facility] once daily furosemide (LASIX) 20 MG [...] mg Start: 03-21-2020 take 2 tablets by [facility] every twelve hours Gabapentin 600 MG 2 [...] Until Discontinued, Nausea, Vomiting polyethylene glycol 3350 66580 mg powder for oral solution (2 sources) [...] Date Episodic/Chronic Acute and unspecified renal failure (5 sources) Acute injury of kidney; Translations: [Acute kidney failure, unspecified] Onset: 07-18-2022 Episodic Acute cerebrovascular disease (1 source) 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; Translations: [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] Onset: 08-06-2024 Chronic Allergic reactions (3 sources) Allergy to penicillin; Translations: [Allergy status to penicillin] Onset: 07-20-2022 Episodic Blindness and vision defects (1 source) Unspecified visual disturbance; Translations: [Unspecified visual disturbance] Onset: 08-06-2024 Episodic Calculus of urinary tract (17 sources) [...] disease (1 source) Atherosclerotic heart disease of ute coronary artery without angina pectoris; Translations: [ASHD [place] CA W/O ANGINA PECTORIS] Onset: 07-20-2022 Chronic Deficiency and other anemia (2 sources) Anemia, unspecified; Translations: [ANEMIA UNSPECIFIED] Onset: 03-16-2023 Episodic Diabetes mellitus with complications (3 sources) Type 2 diabetes mellitus in obese; Translations: [Type 2 diabetes mellitus with other specified complication] Onset: 03-16-2023 Chronic Diabetes mellitus without complication (4 sources) Insulin treated type 2 diabetes mellitus; Translations: [Type 2 diabetes mellitus without complications] Onset: 07-18-2022 Chronic Diabetes mellitus without complication (2 sources) Other abnormal glucose; Translations: [Hyperglycemia, unspecified] Onset: 11-30-2022 Episodic Diseases of white blood cells (3 sources) Leukocytosis; Translations: [Elevated white blood cell count, unspecified] Onset: 07-18-2022 Chronic Disorders of lipid metabolism (3 sources) Pure hypercholesterolemia, unspecified; Translations: [Hyperlipidemia, unspecified] Onset: 07-20-2022 Chronic Essential hypertension (5 sources) Hypertensive disorder; Translations: [Essential (primary) hypertension] Onset: 07-18-2022 Chronic Headache; including migraine (2 sources) Other complicated headache syndrome; Translations: [Headache] Onset: 08-03-2024 Episodic Headache; including migraine (1 source) Headache; [...] Chronic Occlusion or stenosis of precerebral arteries (1 source) Occlusion and stenosis of bilateral carotid arteries; Translations: [Occlusion and stenosis of bilateral carotid arteries] Onset: 08-03-2024 Chronic Other aftercare (3 sources) Patient encounter status; Translations: [intermediate frame tender (current) use of non-steroidal anti-inflammatories (NSAID)] Onset: [...] BMI 40.0-44.9 ADULT] Onset: 07-20-2022 Chronic Other upper respiratory infections (1 source) Sinusitis; Translations: [Chronic infection of sinus NOS] Chronic Haley-; endo-; and myocarditis; cardiomyopathy (except that caused by tuberculosis or sexually transmitted disease) (2 sources) Acute and subacute infective endocarditis; Translations: [Acute and subacute infective endocarditis] Onset: 11-01-2024 Episodic Residual codes; unclassified (1 source) Absent kidney; [...] Onset: 04-15-2022 Episodic Other aftercare (1 source) intermediate (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; Translations: [SEED LABORATORY ASSISTANT CURRENT USE OF ASPIRIN] Onset: 07-20-2022 Episodic Other aftercare (1 source) Other 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) drug therapy; Translations: [OTH SEED LABORATORY ASSISTANT CURRENT DRUG THERAPY] Onset: 07-20-2022 Episodic Other aftercare (1 source) intermediate (current) use of oral hypoglycemic drugs; Translations: [SEED LABORATORY ASSISTANT USE ORAL HYPOGLYCEMIC DX] Onset: 07-20-2022 Episodic Other screening for suspected conditions (not mental disorders or infectious disease) (1 source) Encounter for screening for malignant neoplasm of rectum; Translations: [ENC SCREEN MALIG NEOPLASM RECTUM] Onset: 04-19-2022 Episodic Urinary tract infections (6 sources) Acute pyelonephritis; Translations: [Acute pyelonephritis] Onset: 07-19-2022 Episodic Results Test Name Value Interpretation Reference Range Facility [facility] 11-01-2024 NURSNOTE RN educated pt on d/ c instructions. This included: site care, limited physical activity, resume normal diet, future appointments, medications, and moderate sedation instructions. RN educated pt on when to notify physician and when to go to the hospital. RN encouraged pt to voice any questions or concerns, and answered any questions or concerns if pt verbalized. Pt was wheeled off of unit with all of belongings. [facility] NURSNOTE Bedside swallow stud y completed and passed. Normal [facility] Telephoneon 10-24-2024 Telephone [id number] Asa Thompson Jyotsna 1970 F Date Provider Department Center 10/24/2024 Leigh AnnSeanFERMIN MICHELLE [facility] Family History Problem Relation Age of Onset Coronary artery disease Father Other Father Family Status - Relation Status Age at Father [facility] 37on 09-20-2024 37 Patient returned my call. She is not having fever or chills. She agrees to complete blood cultures and ANGEL. Orders entered. [facility] 37 Regarding echo resul t from 09/13/2024: MD Francheska Zuleta MA Please let the patient know her echo shows an abnormality that may indicate an infection on the mitral valve If she is having fevers, chills or other unusual symptoms, she needs to be seen by her PCP rayray Otherwise, please 1. Order blood cultures x2 2. Schedule her for a ANGEL with 1st available doc Thanks for patient to return my call. [facility] Office Visiton 09-02-2024 Follow-up visit [id number] LucpierceGina mcdonaldAsa Jyotsna 1970 F Date Provider Department Umpire 09/02/2024 [facility] EDDIE Fuller Family History Problem Relation Age of Onset Coronary artery disease Father Other Father Family Status - Relation Status Age at Father Level of Service:52660 [place] OFFICE/OUTPATIENT NEW MODERATE MDM 45 MINUTES [facility] CBC AND AUTO DIFFon 08-06-20 24 ABSOLUTE BASOPHIL 0.0 X10E9/L Normal 0.0-0.2 [facility] Comment on above: Performed By: #### C BCA, 64278-9, CMP #### [facility] ([id number]) [address] [facility] [place]], [place] [address] #### HA1C #### [facility] ([id number]) [address] [facility], [address] [place] [address] ABSOLUTE NEUTROPHIL 4.0 X10E9/L Normal 1.5-6.6 [facility] Comment on above: Performed By: #### C DIMA, 17525-7, CMP #### [facility] ([id number]) [address] [place] [address]444 #### HALulu #### [facility] ([id number]) [address], [address] [place] [address] Basophils/100 WBC (Bld) 0.6 % Normal [facility] Comment on above: Performed By: #### C DIMA, 04418-2, CMP #### [facility] ([id number]) [address] [place] [address]8081 #### ARUN #### [facility] ([id number]) [address], [address] [place] [address] Eosinophils (Bld) [#/Vol] 0.2 10*3/uL Normal 0.0-0.4 [facility] Comment on above: Performed By: #### Jaimee CH, 14204-0, CMP #### [facility] ([id number]) [address] [place] [address] #### ARUN #### [facility] ([id number]) [address], [address] [place] [address] Eosinophils/100 WBC (Bld) 2.3 % Normal [facility] Comment on above: Performed By: #### C DIMA, 60597-9, CMP #### [facility] ([id number]) [address] [place] [address]000 #### HALulu #### [facility] ([id number]) [address], [address] [place] [address] Erythrocyte distribution width (RBC) [Ratio] 15.1 % High 11.5-15.0 [facility] Comment on above: Performed By: #### Jaimee CH, 35942-5, CMP #### [facility] ([id number]) [address] [place] [address] #### HA1C #### [facility] ([id number]) [address] [facility], [address] [place] [address] Hematocrit (Bld) [Volume fraction] 32.9 % Low 35-47 [facility] Comment on above: Performed By: #### C DIMA, 86389-7, CMP #### [facility] ([id number]) [address] [place] [address] 08659 #### ARUN #### [facility] ([id number]) [address] [facility], [address] [place] [address] Hemoglobin (Bld) [Mass/Vol] 11.4 g/dL Low 11.7-15.5 [facility] Comment on above: Performed By: #### C DIMA, 80321-1, CMP #### [facility] ([id number]) [address] [place] [address] 65681 #### ARUN #### [facility] ([id number]) [address] [facility], [address] [place] [address] Lymphocytes (Bld) [#/Vol] 2.4 10*3/uL Normal 1.0-3.5 [facility] Comment on above: Performed By: #### C DIMA, 98834-4, CMP #### [facility] ([id number]) [address] [place] [address]74 #### HALulu #### [facility] ([id number]) [address] [facility] [place] [address] Lymphocytes/100 WBC (Bld) 33.9 % Normal [facility] Comment on above: Performed By: #### C DIMA, 75731-4, CMP #### [facility] ([id number]) [address] [place] [address] #### HA1C #### [facility] ([id number]) [address] [facility] [facility], [address] [place] [address] MCH (RBC) [Entitic mass] 29.2 pg Normal 27-34 [facility] Comment on above: Performed By: #### Jaimee CH, 57796-7, CMP #### [facility] ([id number]) [address] [place] [address] 81653 #### HA1C #### [facility] ([id number]) [facility] [facility], [address] [place] [address] MCHC (RBC) [Mass/Vol] 34.7 g/dL Normal 32-36 [facility] Comment on above: Performed By: #### Jaimee CH, 10989-2, CMP #### [facility] ([id number]) [address] [place] [address] 18924 #### HA1C #### [facility] ([id number]) [address] [facility], [address] [place] [address] MCV (RBC) [Entitic vol] 84 fL Normal 80-100 [facility] Comment on above: Performed By: #### Jaimee CH, 37153-2, CMP #### [facility] ([id number]) [address] [place] [address]97 #### HA1C #### [facility] ([id number]) [address] [facility], [address] [place] [address] Monocytes (Bld) [#/Vol] 0.4 10*3/uL Normal 0-0.9 [facility] Comment on above: Performed By: #### Jaimee CH, 48401-6, CMP #### [facility] ([id number]) [address] [place] [address] 8[address]35 #### ARUN #### [facility] ([id number]) [address] [place] [address] Monocytes/100 WBC (Bld) 6.2 % Normal [facility] Comment on above: Performed By: #### Jaimee CH, 55486-3, CMP #### [facility] ([id number]) [address] [place] [address]6032 #### ARUN #### [facility] ([id number]) [address] [place] [address] Neutrophils/100 WBC (Bld) 57.0 % Normal [facility] Comment on above: Performed By: #### Jaimee CH, 81310-8, CMP #### [facility] ([id number]) [address] [place] [address] 38182 #### ARUN #### [facility] ([id number]) [address] [place] [address] Platelet mean volume (Bld) [Entitic vol] 8.2 fL Normal 7-12 [facility] Comment on above: Performed By: #### Jaimee CH, 68521-0, CMP #### [facility] ([id number]) [address] [place] [address] 95511 #### ARUN #### [facility] ([id number]) [address], [address] [place] [address] Platelets (Bld) [#/Vol] 336 10*3/uL Normal 150-450 [facility] Comment on above: Performed By: #### Jaimee CH, 32466-4, CMP #### [facility] ([id number]) [address] [place] [address] 96928 #### ARUN #### [facility] ([id number]) [address] [place] [address] RBC COUNT 3.91 X10E12/L Normal 3.80-5.20 [facility] Comment on above: Performed By: #### C DIMA, 51230-3, CMP #### [facility] ([id number]) [address] [place] [address] 11706 #### HA1C #### [facility] ([id number]) [address] [facility] [place] [address] WBC (Bld) [#/Vol] 7.1 10*3/uL Normal 4.0-11.0 [facility] Comment on above: Performed By: #### C DIMA, 58948-7, CMP #### [facility] ([id number]) [address] [place] [address] 18703 #### HA1C #### [facility] ([id number]) [address] [place] [address], [address] [place] [address] COMPREHENSIVE METABOLIC PANE Chay 08-06-2024 Albumin [Mass/Vol] 3.6 g/dL Normal 3.2-5.3 [facility] Comment on above: Performed By: #### Jaimee CH, 60793-6, CMP #### [facility] ([id number]) [address] [place] [address]45 #### HA1C #### [facility] ([id number]) [address] [place] [address], [address] [place] [address] ALP [Catalytic activity/Vol] 87 U/L Normal 39-130 [facility] Comment on above: Performed By: #### C DIMA, 62478-3, CMP #### [facility] ([id number]) [address] [place] [address] 00094 #### HA1C #### [facility] ([id number]) [address] [facility], [address] [place] [address] ALT [Catalytic activity/Vol] 19 U/L Normal 0-31 [facility] Comment on above: Performed By: #### Jaimee CH, 32478-2, CMP #### [facility] ([id number]) [address] [place] [address] 88511 #### HA1C #### [facility] ([id number]) [address], [address] [place] [address] Anion gap [Moles/Vol] 10 mmol/L Normal 5-15 [facility] Comment on above: Performed By: #### C DIMA, 24770-7, CMP #### [facility] ([id number]) [address] [place] [address] 59558 #### HA1C #### [facility] ([id number]) [address], [address] [place] [address] AST [Catalytic activity/Vol] 20 U/L Normal 0-41 [facility] Comment on above: Performed By: #### C DIMA, 31361-8, CMP #### [facility] ([id number]) [address] [place] [address] 49699 #### HA1C #### [facility] ([id number]) [address], [address] [place] [address] Bilirubin [Mass/Vol] 0.3 mg/dL Normal 0.3-1.2 [facility] Comment on above: Performed By: #### C BCA, 93257-3, CMP #### [facility] ([id number]) [address] [place] [address]303 #### HA1C #### [facility] ([id number]) [address], [address] [place] [address] Calcium [Mass/Vol] 8.8 mg/dL Normal 8.5-10.5 [facility] Comment on above: Performed By: #### C BCA, 48710-7, CMP #### [facility] ([id number]) [address] [place] [address] 67655 #### HA1C #### [facility] ([id number]) [address] [place] [address] Chloride [Moles/Vol] 103 mmol/L Normal 98-109 [facility] Comment on above: Performed By: #### C BCA, 66700-4, CMP #### [facility] ([id number]) [address] [place] [address] 34753 #### HA1C #### [facility] ([id number]) [address], [address] [place] [address] CO2 [Moles/Vol] 19 mmol/L Low 22-32 [facility] Comment on above: Performed By: #### C BCA, 66341-2, CMP #### [facility] ([id number]) [address] [place] [address] 46399 #### HA1C #### [facility] ([id number]) [address], [address] [place] [address] Creatinine [Mass/Vol] 1.58 mg/dL High 0.40-1.00 [facility] Comment on above: Result Comment: METH OD TRACEABLE TO IDMS STANDARD Performed By: #### C BCA, 15623-0, CMP #### [facility] ([id number]) [address] [place] [address] 14887 #### HA1C #### [facility] ([id number]) [address] [place] [address] GFR/1.73 sq M.predicted among non-blacks MDRD (S/P/Bld) [Vol rate/Area] 39 mL/min/{1.73_m2} Low >59 [facility] Comment on above: Result Comment: Reported eGFR is based on the CKD-EPI 2020 equation that does not use a race coefficient. Performed By: #### C DIMA, 48418-9, CMP #### [facility] ([id number]) [address] [place] [address] 03145 #### HA1C #### [facility] ([id number]) [address], [address] [place] [address] Glucose [Mass/Vol] 312 mg/dL High 65-99 [facility] Comment on above: Performed By: #### C DIMA, 61450-8, CMP #### [facility] ([id number]) [address] [place] [address] 84752 #### HA1C #### [facility] ([id number]) [address], [address] [place] [address] Potassium [Moles/Vol] 4.7 mmol/L Normal 3.5-5.0 [facility] Comment on above: Performed By: #### Jaimee CH, 73964-5, CMP #### [facility] ([id number]) [address] [place] [address] 12874 #### HA1C #### [facility] ([id number]) [address] [place] [address] Protein [Mass/Vol] 6.7 g/dL Normal 6.0-8.0 [facility] Comment on above: Performed By: #### C DIMA, 21902-4, CMP #### [facility] ([id number]) [address] [place] [address] 24247 #### HA1C #### [facility] ([id number]) [address], [address] [place] [address] Sodium [Moles/Vol] 132 mmol/L Low 134-146 [facility] Comment on above: Performed By: #### C DIMA, 27580-6, CMP #### [facility] ([id number]) [address] [place] [address] 03151 #### HA1C #### [facility] ([id number]) [address], [address] [place] [address] Urea nitrogen [Mass/Vol] 29 mg/dL High 5-23 [facility] Comment on above: Performed By: #### C DIMA, 55428-2, CMP #### [facility] ([id number]) [address] [place] [address] 05311 #### HA1C #### [facility] ([id number]) [address], [address] [place] [address] Glucose Glucometer (BldC) [M ass/Vol]on 08-06-2024 Glucose [Mass/Vol] 319 mg/dL High 65-99 [facility] Heparin unfractionated Chrom ogenic method Qn (PPP)on 08-06-2024 ANTI XA UFH 0.29 IU/mL Low 0.30-0.70 [facility] Comment on above: Result Comment: Opti mal time for testing is 6 hrs post dosage This test is specific for monitoring patients on UFH, and is not recommended for use with other Anti-Xa medications. Performed By: #### C DIMA, 06734-9, CMP #### [facility] ([id number]) [address] [place] [address] 56960 #### HA1C #### [facility] ([id number]) [address], [address] [place] [address] ANTI XA UFH 0.33 IU/mL Normal 0.30-0.70 [facility] Comment on above: Result Comment: Opti mal time for testing is 6 hrs post dosage This test is specific for monitoring patients on UFH, and is not recommended for use with other Anti-Xa medications. Performed By: #### C DIMA, 05448-4, CMP #### [facility] ([id number]) [address] [place] [address] 73567 #### HA1C #### [facility] ([id number]) [address], [address] [place] [address] MAGNESIUMon 08-06-2024 Magnesium [Mass/Vol] 1.8 mg/dL Normal 1.8-2.6 [facility] Comment on above: Performed By: #### C DIMA, 34859-2, CMP #### [facility] ([id number]) [address] [place] [address] 45174 #### HA1C #### [facility] ([id number]) [address] [place] [address] CBC AND AUTO DIFFon 08-05-20 24 ABSOLUTE BASOPHIL 0.0 X10E9/L Normal 0.0-0.2 [facility] Comment on above: Performed By: #### C DIMA, 81873-2, CMP #### [facility] ([id number]) [address] [place] [address] 86351 #### HA1C #### [facility] ([id number]) [address], [address] [place] [address] ABSOLUTE NEUTROPHIL 3.0 X10E9/L Normal 1.5-6.6 [facility] Comment on above: Performed By: #### C DIMA, 85723-7, CMP #### [facility] ([id number]) [address] [place] [address] 27048 #### HA1C #### [facility] ([id number]) [address], [address] [place] [address] Basophils/100 WBC (Bld) 0.4 % Normal [facility] Comment on above: Performed By: #### C DIMA, 64322-1, CMP #### [facility] ([id number]) [address] [place] [address] 91892 #### ARUN #### [facility] ([id number]) [address], [address] [place] [address] Eosinophils (Bld) [#/Vol] 0.1 10*3/uL Normal 0.0-0.4 [facility] Comment on above: Performed By: #### C DIMA, 81113-3, CMP #### [facility] ([id number]) [address] [place] [id number] #### ARUN #### [facility] ([id number]) [address] [facility] [place] [address] Eosinophils/100 WBC (Bld) 2.6 % Normal [facility] Comment on above: Performed By: #### [place]ime[place] CH, 55017-5, CMP #### [facility] ([id number]) [address] [place] [id number] #### ARUN #### [facility] [facility] ([id number]) [address] [facility], [address] [place] [address] Erythrocyte distribution width (RBC) [Ratio] 14.7 % Normal 11.5-15.0 [facility] Comment on above: Performed By: #### Jaimee CH, 50612-0, CMP #### [facility] ([id number]) [address] [place] [address] 38851 #### HA1C #### [facility] ([id number]) [address], [address] [place] [address] Hematocrit (Bld) [Volume fraction] 32.3 % Low 35-47 [facility] Comment on above: Performed By: #### Jaimee CH, 74640-3, CMP #### [facility] ([id number]) [address] [place] [address] 85346 #### HALulu #### [facility] ([id number]) [address] [facility], [address] [place] [address] Hemoglobin (Bld) [Mass/Vol] 11.1 g/dL Low 11.7-15.5 [facility] Comment on above: Performed By: #### Jaimee CH, 15871-1, CMP #### [facility] ([id number]) [address] [place] [address] 32903 #### ARUN #### [facility] ([id number]) [address] [facility], [address] [place] [address] Lymphocytes (Bld) [#/Vol] 1.8 10*3/uL Normal 1.0-3.5 [facility] Comment on above: Performed By: #### Jaimee CH, 21429-8, CMP #### [facility] ([id number]) [address] [place] [address] 66354 #### ARUN #### [facility] ([id number]) [address] [facility], [address] [place] [address] Lymphocytes/100 WBC (Bld) 34.0 % Normal [facility] Comment on above: Performed By: #### Jaimee CH, 55488-7, CMP #### [facility] ([id number]) [address] [place] [address] 32474 #### HA1C #### [facility] ([id number]) [address] [place] [address], [address] [place] [address] MCH (RBC) [Entitic mass] 29.1 pg Normal 27-34 [facility] Comment on above: Performed By: #### Jaimee CH, 79180-4, CMP #### [facility] ([id number]) [address] [place] [address] 96406 #### HA1C #### [facility] ([id number]) [address], [address] [place] [address] MCHC (RBC) [Mass/Vol] 34.3 g/dL Normal 32-36 [facility] Comment on above: Performed By: #### Jaimee CH, 77725-3, CMP #### [facility] ([id number]) [address] [place] [address] 01828 #### HALulu #### [facility] ([id number]) [address] [facility], [address] [place] [address] MCV (RBC) [Entitic vol] 85 fL Normal 80-100 [facility] Comment on above: Performed By: #### Jaimee CH, 99220-2, CMP #### [facility] ([id number]) [address] [place] [address] 26063 #### HALulu #### [facility] ([id number]) [address] [facility], [address] [place] [address] Monocytes (Bld) [#/Vol] 0.3 10*3/uL Normal 0-0.9 [facility] Comment on above: Performed By: #### Jaimee CH, 39927-2, CMP #### [facility] ([id number]) [address] [place] [address] 42638 #### HALulu #### [facility] ([id number]) [address], [address] [place] [address] Monocytes/100 WBC (Bld) 5.9 % Normal [facility] Comment on above: Performed By: #### Jaimee CH, 07610-5, CMP #### [facility] ([id number]) [address] [place] [address] 31628 #### HALulu #### [facility] ([id number]) [address], [address] [place] [address] Neutrophils/100 WBC (Bld) 57.1 % Normal [facility] Comment on above: Performed By: #### Jaimee CH, 72899-4, CMP #### [facility] ([id number]) [address] [place] [address] 65729 #### ARUN #### [facility] ([id number]) [address], [address] [place] [address] Platelet mean volume (Bld) [Entitic vol] 8.3 fL Normal 7-12 [facility] Comment on above: Performed By: #### Jaimee CH, 13510-9, CMP #### [facility] ([id number]) [address] [place] [address] 64558 #### ARUN #### [facility] ([id number]) [address], [address] [place] [address] Platelets (Bld) [#/Vol] 321 10*3/uL Normal 150-450 [facility] Comment on above: Performed By: #### Jaimee CH, 99287-5, CMP #### [facility] ([id number]) [address] [place] [address] 80499 #### ARUN #### [facility] ([id number]) [address], [address] [place] [address] RBC COUNT 3.81 X10E12/L Normal 3.80-5.20 [facility] Comment on above: Performed By: #### Jaimee CH, 04807-1, CMP #### [facility] ([id number]) [address] [place] [address] 47254 #### HALulu #### [facility] ([id number]) [address], [address] [place] [address] WBC (Bld) [#/Vol] 5.2 10*3/uL Normal 4.0-11.0 [facility] Comment on above: Performed By: #### C DIMA, 44576-4, CMP #### [facility] ([id number]) [address] [place] [address] 44182 #### HA1C #### [facility] ([id number]) [address], [address] [place] [address] COMPREHENSIVE METABOLIC PANE [facility] 08-05-2024 Albumin [Mass/Vol] 3.4 g/dL Normal 3.2-5.3 [facility] Comment on above: Performed By: #### C DIMA, 24298-6, CMP #### [facility] ([id number]) [address] [place] [address] 98482 #### HALulu #### [facility] ([id number]) [address] [facility], [address] [place] [address] ALP [Catalytic activity/Vol] 88 U/L Normal 39-130 [facility] Comment on above: Performed By: #### Jaimee CH, 73935-4, CMP #### [facility] ([id number]) [address] [place] [address] 62494 #### HA1C #### [facility] ([id number]) [address] [facility], [address] [place] [address] ALT [Catalytic activity/Vol] 19 U/L Normal 0-31 [facility] Comment on above: Performed By: #### C DIMA, 69967-5, CMP #### [facility] ([id number]) [address] [place] [address] 49882 #### HA1C #### [facility] ([id number]) [address] [facility], [address] [place] [address] Anion gap [Moles/Vol] 8 mmol/L Normal 5-15 [facility] Comment on above: Performed By: #### C BCA, 04615-4, CMP #### [facility] ([id number]) [address] [place] [address] 24879 #### HA1C #### [facility] ([id number]) [address] [place] [address] AST [Catalytic activity/Vol] 17 U/L Normal 0-41 [facility] Comment on above: Performed By: #### C BCA, 84908-4, CMP #### [facility] ([id number]) [address] [place] [address] 98997 #### HA1C #### [facility] ([id number]) [address] [place] [address] Bilirubin [Mass/Vol] 0.5 mg/dL Normal 0.3-1.2 [facility] Comment on above: Performed By: #### C BCA, 56918-6, CMP #### [facility] ([id number]) [address] [place] [address] 82945 #### HA1C #### [facility] ([id number]) [address] [place] [address] Calcium [Mass/Vol] 9.0 mg/dL Normal 8.5-10.5 [facility] Comment on above: Performed By: #### C BCA, 23020-3, CMP #### [facility] ([id number]) [address] [place] [address] 12799 #### HA1C #### [facility] ([id number]) [address] [place] [address] Chloride [Moles/Vol] 104 mmol/L Normal 98-109 [facility] Comment on above: Performed By: #### C BCA, 45587-8, CMP #### [facility] ([id number]) [address] [place] [address] 61583 #### HA1C #### [facility] ([id number]) [address], [address] [place] [address] CO2 [Moles/Vol] 20 mmol/L Low 22-32 [facility] Comment on above: Performed By: #### C DIMA, 94147-3, CMP #### [facility] ([id number]) [address] [place] [address] 24906 #### HA1C #### [facility] ([id number]) [address], [address] [place] [address] Creatinine [Mass/Vol] 1.64 mg/dL High 0.40-1.00 [facility] Comment on above: Result Comment: METH OD TRACEABLE TO IDMS STANDARD Performed By: #### C DIMA, 54667-2, CMP #### [facility] ([id number]) [address] [place] [address] 14977 #### HA1C #### [facility] ([id number]) [address], [address] [place] [address] GFR/1.73 sq M.predicted among non-blacks MDRD (S/P/Bld) [Vol rate/Area] 37 mL/min/{1.73_m2} Low >59 [facility] Comment on above: Result Comment: Reported eGFR is based on the CKD-EPI 2020 equation that does not use a race coefficient. Performed By: #### C DIMA, 16187-0, CMP #### [facility] ([id number]) [address] [place] [address] 22640 #### HA1C #### [facility] ([id number]) [address], [address] [place] [address] Glucose [Mass/Vol] 241 mg/dL High 65-99 [facility] Comment on above: Performed By: #### C DIMA, 07506-7, CMP #### [facility] ([id number]) [address] [place] [address] 10254 #### HA1C #### [facility] ([id number]) [address], [address] [place] [address] Potassium [Moles/Vol] 4.6 mmol/L Normal 3.5-5.0 [facility] Comment on above: Performed By: #### C DIMA, 56330-0, CMP #### [facility] ([id number]) [address] [place] [address] 13630 #### HA1C #### [facility] ([id number]) [address], [address] [place] [address] Protein [Mass/Vol] 6.7 g/dL Normal 6.0-8.0 [facility] Comment on above: Performed By: #### C DIMA, 08490-0, CMP #### [facility] ([id number]) [address] [place] [address] 99134 #### HA1C #### [facility] ([id number]) [address], [address] [place] [address] Sodium [Moles/Vol] 132 mmol/L Low 134-146 [facility] Comment on above: Performed By: #### C DIMA, 77143-5, CMP #### [facility] ([id number]) [address] [place] [address] 83392 #### HA1C #### [facility] ([id number]) [address], [address] [place] [address] Urea nitrogen [Mass/Vol] 33 mg/dL High 5-23 [facility] Comment on above: Performed By: #### Jaimee CH, 10287-4, CMP #### [facility] ([id number]) [address] [place] [address] 42684 #### ARUN #### [facility] ([id number]) [address], [address] [place] [address] Glucose Glucometer (BldC) [M ass/Vol]on 08-05-2024 Glucose [Mass/Vol] 372 mg/dL High 65-99 [facility] Glucose [Mass/Vol] 362 mg/dL High 65-99 [facility] Glucose [Mass/Vol] 376 mg/dL High 65-99 [facility] Glucose [Mass/Vol] 398 mg/dL High 65-99 [facility] HEMOGLOBINon 08-05-2024 Hemoglobin (Bld) [Mass/Vol] 11.6 g/dL Low 11.7-15.5 [facility] Comment on above: Performed By: #### Jaimee CH, 95307-9, CMP #### [facility] ([id number]) [address] [place] [address] 72435 #### ARUN #### [facility] ([id number]) [address], [address] [place] [address] Heparin unfractionated Chrom ogenic method Qn (PPP)on 08-05-2024 ANTI XA UFH 0.44 IU/mL Normal 0.30-0.70 [facility] Comment on above: Result Comment: Opti mal time for testing is 6 hrs post dosage This test is specific for monitoring patients on UFH, and is not recommended for use with other Anti-Xa medications. Performed By: #### Jaimee CH, 54536-9, CMP #### [facility] ([id number]) [address] [place] [address] 98112 #### HA1C #### [facility] ([id number]) [address], [address] [place] [address] MAGNESIUMon 08-05-2024 Magnesium [Mass/Vol] 2.1 mg/dL Normal 1.8-2.6 [facility] Comment on above: Performed By: #### C DIMA, 55657-1, CMP #### [facility] ([id number]) [address] [place] [address] 04914 #### HA1C #### [facility] ([id number]) [address] [facility], [address] [place] [address] MR BRAIN WO CONTon MR BRAIN WO [...] Pelayo MD on 08/05/2024 10:34 AM Normal [facility] PLATELET COUNT AND MPVon Platelet mean volume (Bld) [Entitic vol] 8.3 fL Normal 7-12 [facility] Comment on above: Performed By: #### C DIMA, 90045-2, CMP #### [facility] ([id number]) [address] [place] [address] 99864 #### HA1C #### [facility] ([id number]) [address] [facility], [address] [place] [address] Platelets (Bld) [#/Vol] 335 10*3/uL Normal 150-450 [facility] Comment on above: Performed By: #### Jaimee CH, 80319-1, CMP #### [facility] ([id number]) [address] [place] [address] 99914 #### HA1C #### [facility] ([id number]) [facility] [facility], [address] [place] [address] PROTIME AND INRon 08-05-2024 INR Coag (PPP) [Relative time] 1.0 {INR} Normal 0.8-1.1 [facility] Comment on above: Performed By: #### Jaimee CH, 06443-8, CMP #### [facility] ([id number]) [address] [place] [address] 80918 #### HA1C #### [facility] ([id number]) [address] [place] [address], [address] [place] [address] PT Coag (PPP) [Time] 11.7 s Normal 9.8-13.2 [facility] Comment on above: Result Comment: NEW REFERENCE RANGE Performed By: #### Jaimee CH, 08774-2, CMP #### [facility] ([id number]) [address] [place] [address] 64773 #### HA1C #### [facility] ([id number]) [facility], [address] [place] [address] aPTT Coag (PPP) [Time]on aPTT Coag (Bld) [Time] 81 s High 26-37 [facility] Comment on above: Result Comment: NEW REFERENCE RANGE Performed By: #### Jaimee CH, 32440-1, CMP #### [facility] ([id number]) [address] [place] [address] 36143 #### HA1C #### [facility] ([id number]) [address] [facility] [place] [address] CBC AND AUTO DIFFon 08-04-20 24 ABSOLUTE BASOPHIL 0.0 X10E9/L Normal 0.0-0.2 [facility] Comment on above: Performed By: #### Jaimee BCA, CMP, 01433-0 ####[facility] ([id number])[address] [place], [place] [address]#### 63764-7, 2088-11 ####[facility] ([id number])[address] [place] [address], [address] [place] [address] ABSOLUTE NEUTROPHIL 2.8 X10E9/L Normal 1.5-6.6 [facility] Comment on above: Performed By: #### Jaimee BCA, CMP, ####[facility] ([id number])[address] [place], [place] [address]#### 75026-2, 2088-11 ####[facility] ([id number])[address] [place] [address], [address] [place] [address] Basophils/100 WBC (Bld) 0.4 % Normal [facility] Comment on above: Performed By: #### Jaimee BCA, CMP, ####[facility] ([id number])[address] [place] [address]#### 50375-5, 2088-11 ####[facility] ([id number])Formerly [facility] [address] [place] [address] Eosinophils (Bld) [#/Vol] 0.2 10*3/uL Normal 0.0-0.4 [facility] Comment on above: Performed By: #### Jaimee BCA, CMP, ####[facility] ([id number])[address] [place] [address]#### 11668-5, 2088-11 ####[facility] ([id number])[address] [place] [address] Eosinophils/100 WBC (Bld) 2.8 % Normal [facility] Comment on above: Performed By: #### Jaimee CH CMP, 49503-4 ####[facility] ([id number])[address] [place] [address]198#### 69550-8, 2088-11 ####[facility] ([id number])[address] [place] [address], [address] [address] Erythrocyte distribution width (RBC) [Ratio] 15.1 % High 11.5-15.0 [facility] Comment on above: Performed By: #### Jaimee CH CMP, ####[facility] ([id number])[address] [place] [address]228#### 55047-7, 2088-11 ####[facility] ([id number])[address] [place] [address] Hematocrit (Bld) [Volume fraction] 33.6 % Low 35-47 [facility] Comment on above: Performed By: #### Jaimee CH CMP, ####[facility] ([id number])[address] [place] [address] 677[address]#### 23444-2, 2088-11 ####[facility] ([id number])Formerly [facility] [address] [address] Hemoglobin (Bld) [Mass/Vol] 11.3 g/dL Low 11.7-15.5 [facility] Comment on above: Performed By: #### Jaimee CH CMP, ####[facility] ([id number])[address] [place] [address]#### 89358-1, 2088-11 ####[facility] ([id number])[address], [address] [place] [address] Lymphocytes (Bld) [#/Vol] 2.3 10*3/uL Normal 1.0-3.5 [facility] Comment on above: Performed By: #### C BCA, CMP, ####[facility] ([id number])[address] [place] [address]#### 24337-6, 2088-11 ####[facility] ([id number])[address] [address] Lymphocytes/100 WBC (Bld) 41.0 % Normal [facility] Comment on above: Performed By: #### Jaimee BCA, CMP, ####[facility] ([id number])[address] [place] [address]#### 48236-6, 2088-11 ####[facility] ([id number])[address] [facility] [address] [place] [address] MCH (RBC) [Entitic mass] 28.4 pg Normal 27-34 [facility] Comment on above: Performed By: #### Jaimee BCA, CMP, ####[facility] ([id number])[address] [place] [address]1911#### 91700-0, 2088-11 ####[facility] ([id number])[address] [facility], [address] [place] [address] MCHC (RBC) [Mass/Vol] 33.6 g/dL Normal 32-36 [facility] Comment on above: Performed By: #### C BCA, CMP, ####[facility] ([id number])[address] [place] [address] 17962#### 48031-3, 2088-11 ####[facility] ([id number])[address] [facility], [address] [place] [address] MCV (RBC) [Entitic vol] 85 fL Normal 80-100 [facility] Comment on above: Performed By: #### C BCA, CMP, ####[facility] ([id number])[address] [place] [address]#### 38225-9, 2088-11 ####[facility] ([id number])[address] [place] [address], [address] [place] [address] Monocytes (Bld) [#/Vol] 0.4 10*3/uL Normal 0-0.9 [facility] Comment on above: Performed By: #### Jaimee BCA, CMP, ####[facility] ([id number])[address] [place] [address]#### 41568-1, 2088-11 ####[facility] ([id number])[address] [place] [address], [address] [place] [address]3696 Monocytes/100 WBC (Bld) 6.6 % Normal [facility] Comment on above: Performed By: #### Jaimee BCA, CMP, ####[facility] ([id number])[address] [place] [address]71#### 19590-4, 2088-11 ####[facility] ([id number])[address] [facility], [address] [place] [address] Neutrophils/100 WBC (Bld) 49.2 % Normal [facility] Comment on above: Performed By: #### Jaimee BCA, CMP, ####[facility] ([id number])[address] [place] [address]#### 64861-0, 2088-11 ####[facility] ([id number])[address] [place] [address], [address] [place] [address] Platelet mean volume (Bld) [Entitic vol] 8.3 fL Normal 7-12 [facility] Comment on above: Performed By: #### Jaimee CH CMP, ####[facility] ([id number])[address] [place] [address]#### 66208-4, 2088-11 ####[facility] ([id number])[address] [place] [address], [address] [place] [address] Platelets (Bld) [#/Vol] 311 10*3/uL Normal 150-450 [facility] Comment on above: Performed By: #### Jaimee CH CMP, ####[facility] ([id number])[address] [place] [address]#### 93538-5, 2088-11 ####[facility] ([id number])[address] [place] [address], [address] [address] RBC COUNT 3.97 X10E12/L Normal 3.80-5.20 [facility] Comment on above: Performed By: #### Jaimee CH CMP, ####[facility] ([id number])[address] [place] [address]#### 59151-0, 2088-11 ####[facility] ([id number])[address] [place] [address], [address] [place] [address] WBC (Bld) [#/Vol] 5.7 10*3/uL Normal 4.0-11.0 [facility] Comment on above: Performed By: #### Jaimee CH, CMP, ####[facility] ([id number])[address] [place] [address]#### 98989-8, 2088-11 ####[facility] ([id number])[address] [facility], [address] [address] COMPREHENSIVE METABOLIC PANE Chay 08-04-2024 Albumin [Mass/Vol] 3.5 g/dL Normal 3.2-5.3 [facility] Comment on above: Performed By: #### C BCA, CMP, ####[facility] ([id number])[address] [place] [address]#### 84289-1, 2088-11 ####[facility] ([id number])0 [facility], [address] [place] [address] ALP [Catalytic activity/Vol] 85 U/L Normal 39-130 [facility] Comment on above: Performed By: #### C BCA, CMP, ####[facility] ([id number])[address] [place] [address]#### 56341-6, 2088-11 ####[facility] ([id number])[address] [facility], [address] [place] [address] ALT [Catalytic activity/Vol] 15 U/L Normal 0-31 [facility] Comment on above: Performed By: #### C BCA, CMP, ####[facility] ([id number])[address] [place] [address]#### 33783-3, 2088-11 ####[facility] ([id number])[address] [facility], [facility] [place] [address] Anion gap [Moles/Vol] 9 mmol/L Normal 5-15 [facility] Comment on above: Performed By: #### C BCA, CMP, ####[facility] ([id number])[address] [place] [address]#### 36655-7, 2088-11 ####[facility] ([id number])2130 [facility], [address] [place] [address] AST [Catalytic activity/Vol] 13 U/L Normal 0-41 [facility] Comment on above: Performed By: #### C BCA, CMP, 71810-5 ####[facility] ([id number])[address] [place] [address]#### 78606-0, 2088-11 ####[facility] ([id number])[address] [place] [address], [address] [place] [address] Bilirubin [Mass/Vol] 0.5 mg/dL Normal 0.3-1.2 [facility] Comment on above: Performed By: #### C BCA, CMP, ####[facility] ([id number])[address] [place] [address] 36266#### 74839-6, 2088-11 ####[facility] ([id number])[address] [place] [address], [address] [place] [address]182 Calcium [Mass/Vol] 9.0 mg/dL Normal 8.5-10.5 [facility] Comment on above: Performed By: #### C BCA, CMP, ####[facility] ([id number])[address] [place] [address] 72356#### 46963-0, 2088-11 ####[facility] ([id number])[address] [place] [address], [address] [place] [address] 44298 Chloride [Moles/Vol] 103 mmol/L Normal 98-109 [facility] Comment on above: Performed By: #### C BCA, CMP, ####[facility] ([id number])[address] [place] [address] 06359#### 25468-0, 2088-11 ####[facility] ([id number])[address] [facility], [address] [address] CO2 [Moles/Vol] 21 mmol/L Low 22-32 [facility] Comment on above: Performed By: #### C GERMAN[place] CH, 78969-7 ####[facility] ([id number])[address] [place] [address] 84993#### 14025-8, 2088-11 ####[facility] ([id number])[address] [address] Creatinine [Mass/Vol] 1.85 mg/dL High 0.40-1.00 [facility] Comment on above: Result Comment: METH OD TRACEABLE TO IDMS STANDARD Performed By: #### C DIMA, GER[place], ####[facility] ([id number])[address] [place] [address] 05224#### 07603-2, 2088-11 ####[facility] ([id number])[address] [address] GFR/1.73 sq M.predicted among non-blacks MDRD (S/P/Bld) [Vol rate/Area] 32 mL/min/{1.73_m2} Low >59 [facility] Comment on above: Result Comment: Reported eGFR is based on the CKD-EPI 2020 equation that does not use a race coefficient. Performed By: #### C BCA, CMP, ####[facility] ([id number])[address] [place] [address] 85012#### 26412-7, 2088-11 ####[facility] ([id number])[address] [address] Glucose [Mass/Vol] 185 mg/dL High 65-99 [facility] Comment on above: Performed By: #### C BCA, CMP, ####[facility] ([id number])[address] [place] [address] 88121#### 38346-2, 2088-11 ####[facility] ([id number])[address], [address], [place] [address] Potassium [Moles/Vol] 4.1 mmol/L Normal 3.5-5.0 [facility] Comment on above: Performed By: #### C BCA, CMP, ####[facility] ([id number])[address] [place] [address] 98439#### 86677-4, 2088-11 ####[facility] ([id number])[address], [address] [place] [address]605 Protein [Mass/Vol] 6.7 g/dL Normal 6.0-8.0 [facility] Comment on above: Performed By: #### Jaimee CH, CMP, ####[facility] ([id number])[address] [place] [address] 15179#### 43149-5, 2088-11 ####[facility] ([id number])[address], [address] [place] [address]26 Sodium [Moles/Vol] 133 mmol/L Low 134-146 [facility] Comment on above: Performed By: #### C BCA, CMP, ####[facility] ([id number])[address] [place] [address] 25188#### 33061-4, 2088-11 ####[facility] ([id number])[address], [address] [address] Urea nitrogen [Mass/Vol] 39 mg/dL High 5-23 [facility] Comment on above: Performed By: #### Jaimee CH, GER[place], 63804-7 ####[facility] ([id number])[address] [place] [address] 13583#### 61875-0, 1 ####[facility] ([id number])[address] [facility], [address] [address] DIRECT LDLon 08-04-2024 Cholesterol in LDL [Mass/Vol] 105 mg/dL Normal <130 [facility] Comment on above: Result Comment: LDL <100 mg/dL - Desirable LDL 130-159 mg/dL - Borderline High Risk LDL >160 mg/dL - High Risk Performed By: #### C DIMA, GER[place], 52498-8 ####[facility] ([id number])[address] [place] [address] 83457#### 61876-7, 2088-11 ####[facility] ([id number])[address], [address] [address] Glucose Glucometer (BldC) [M ass/Vol]on 08-04-2024 Glucose [Mass/Vol] 221 mg/dL High 65-99 [facility] Glucose [Mass/Vol] 247 mg/dL High 65-99 [facility] Glucose [Mass/Vol] 253 mg/dL High 65-99 [facility] Lipid 1996 panelon Cholesterol [Mass/Vol] 240 mg/dL High 150-200 [facility] Comment on above: Performed By: #### Jaimee CH, CMP, 83526-2 ####[facility] ([id number])[address] [place] [address] 52336#### 09758-4, 2088-11 ####[facility] ([id number])[address] [address] [place] [address] Cholesterol in HDL [Mass/Vol] 38 mg/dL Low >39 [facility] Comment on above: Result Comment: HDL <40 mg/dL - High Risk HDL > or = 40mg/dL- Desirable HDL >60 mg/dL - Negative Risk Performed By: #### Jaimee CH CMP, ####[facility] ([id number])[address] [place] [address] 30731#### 11637-2, 2088-11 ####[facility] ([id number])[address] [address] Cholesterol in VLDL [Mass/Vol] 156 mg/dL High 0-30 [facility] Comment on above: Performed By: #### Jaimee CH, [facility], ####[facility] ([id number])[address] [place] [address] 05943#### 42893-4, 2088-11 ####[facility] ([id number])[address] [address] CHOLESTEROL:HDL 6.3 High 1.0-5.0 [facility] Comment on above: Performed By: #### Jaimee CH, CMP, ####[facility] ([id number])[address] [place] [address] 17502#### 99538-2, 2088-11 ####[facility] ([id number])[address] [address] LDL (CALC) RESULT NOT REPORTED DUE TO HIGH TRIGLYCERIDE Normal <130 [facility] Comment on above: Performed By: #### C BCA, CMP, 02184-0 ####[facility] ([id number])[address] [place] [address] 09710#### 79448-0, 2088-11 ####[facility] ([id number])[address] [facility], [address] [place] [address] Triglyceride [Mass/Vol] 782 mg/dL High 27-150 [facility] Comment on above: Performed By: #### C BCA, CMP, ####[facility] ([id number])[address] [place] [address] 07827#### 35415-0, 2088-11 ####[facility] ([id number])[address] [facility], [address] [place] [address] MAGNESIUMon 08-04-2024 Magnesium [Mass/Vol] 2.3 mg/dL Normal 1.8-2.6 [facility] Comment on above: Performed By: #### C DIMA, 71198-9, CMP #### [facility] ([id number]) [address] [place] [address] 97186 #### HA1C #### [facility] ([id number]) [address] [facility], [address] [place] [address] Magnesium [Mass/Vol] 1.6 mg/dL Low 1.8-2.6 [facility] Comment on above: Performed By: #### C BCA, CMP, 32572-1 ####[facility] ([id number])[address] [place] [address] 39680#### 79469-2, 2088-11 ####[facility] ([id number])[address] [facility], [address] [place] [address] CBC AND AUTO DIFFon 09-28-20 24 ABSOLUTE BASOPHIL 0.1 X10E9/L Normal 0.0-0.2 [facility] Comment on above: Performed By: #### Jaimee CH, 15444-2, CMP #### [facility] ([id number]) [address] [place] [address]342 #### HA1C #### [facility] ([id number]) [address], [address] [place] [address] ABSOLUTE NEUTROPHIL 4.2 X10E9/L Normal 1.5-6.6 [facility] Comment on above: Performed By: #### Jaimee CH, 47788-5, CMP #### [facility] ([id number]) [address] [place] [address] 50107 #### HA1C #### [facility] ([id number]) [address], [address] [place] [address] Basophils/100 WBC (Bld) 0.7 % Normal [facility] Comment on above: Performed By: #### Jaimee CH, 50136-9, CMP #### [facility] ([id number]) [address] [place] [address] 21858 #### HA1C #### [facility] ([id number]) [address], [address] [place] [address] Eosinophils (Bld) [#/Vol] 0.1 10*3/uL Normal 0.0-0.4 [facility] Comment on above: Performed By: #### Jaimee CH, 35002-4, CMP #### [facility] ([id number]) [address] [place] [address] 84613 #### HA1C #### [facility] ([id number]) [address], [address] [place] [address] Eosinophils/100 WBC (Bld) 1.9 % Normal [facility] Comment on above: Performed By: #### C DIMA, 81648-8, CMP #### [facility] ([id number]) [address] [place] [address] 38273 #### HA1C #### [facility] ([id number]) [address], [address] [place] [address] Erythrocyte distribution width (RBC) [Ratio] 15.1 % High 11.5-15.0 [facility] Comment on above: Performed By: #### C DIMA, 27985-7, CMP #### [facility] ([id number]) [address] [place] [address] 6[address]20 #### HA1C #### [facility] ([id number]) [address], [address] [place] [address] Hematocrit (Bld) [Volume fraction] 35.2 % Normal 35-47 [facility] Comment on above: Performed By: #### C DIMA, 66046-4, CMP #### [facility] ([id number]) [address] [place] [address] 07287 #### HA1C #### [facility] ([id number]) [address], [address] [place] [address] Hemoglobin (Bld) [Mass/Vol] 11.9 g/dL Normal 11.7-15.5 [facility] Comment on above: Performed By: #### C DIMA, 85234-0, CMP #### [facility] ([id number]) [address] [place] [address] 85017 #### HA1C #### [facility] ([id number]) [address], [address] [place] [address] Lymphocytes (Bld) [#/Vol] 2.6 10*3/uL Normal 1.0-3.5 [facility] Comment on above: Performed By: #### C DIMA, 38793-5, CMP #### [facility] ([id number]) [address] [place] [address]1808 #### ARUN #### [facility] ([id number]) [address], [address] [place] [address] Lymphocytes/100 WBC (Bld) 34.7 % Normal [facility] Comment on above: Performed By: #### Jaimee CH, 06600-7, CMP #### [facility] ([id number]) [address] [place] [address] 32312 #### ARUN #### [facility] ([id number]) [address], [address] [place] [address] MCH (RBC) [Entitic mass] 28.8 pg Normal 27-34 [facility] Comment on above: Performed By: #### Jaimee CH, 20144-9, CMP #### [facility] ([id number]) [address] [place] [address] 54370 #### ARUN #### [facility] ([id number]) [address], [address] [place] [address] MCHC (RBC) [Mass/Vol] 33.8 g/dL Normal 32-36 [facility] Comment on above: Performed By: #### Jaimee CH, 13056-9, CMP #### [facility] ([id number]) [address] [place] [address] 30853 #### HALulu #### [facility] ([id number]) [address], [address] [place] [address] MCV (RBC) [Entitic vol] 85 fL Normal 80-100 [facility] Comment on above: Performed By: #### Jaimee CH, 99020-1, CMP #### [facility] ([id number]) [address] [place] [address] 40706 #### HA1C #### [facility] ([id number]) [address] [place] [address], [address] [place] [address] Monocytes (Bld) [#/Vol] 0.5 10*3/uL Normal 0-0.9 [facility] Comment on above: Performed By: #### Jaimee CH, 32721-9, CMP #### [facility] ([id number]) [address] [place] [address] 24476 #### HA1C #### [facility] ([id number]) [address] [place] [address], [address] [place] [address] Monocytes/100 WBC (Bld) 6.3 % Normal [facility] Comment on above: Performed By: #### Jaimee CH, 16907-3, CMP #### [facility] ([id number]) [address] [place] [address] 07876 #### HA1C #### [facility] ([id number]) [address] [place] [address], [address] [place] [address] Neutrophils/100 WBC (Bld) 56.4 % Normal [facility] Comment on above: Performed By: #### Jaimee CH, 17219-9, CMP #### [facility] ([id number]) [address] [place] [address] 75991 #### HA1C #### [facility] ([id number]) [address] [place] [address], [address] [place] [address] Platelet mean volume (Bld) [Entitic vol] 8.4 fL Normal 7-12 [facility] Comment on above: Performed By: #### Jaimee CH, 91999-5, CMP #### [facility] ([id number]) [address] [place] [address] 25418 #### HA1C #### [facility] ([id number]) [address] [facility], [address] [place] [address] Platelets (Bld) [#/Vol] 344 10*3/uL Normal 150-450 [facility] Comment on above: Performed By: #### Jaimee CH, 88314-6, CMP #### [facility] ([id number]) [address] [place] [address] 64189 #### HA1C #### [facility] ([id number]) [address] [facility], [address] [place] [address] RBC COUNT 4.13 X10E12/L Normal 3.80-5.20 [facility] Comment on above: Performed By: #### Jaimee HC, 98212-8, CMP #### [facility] ([id number]) [address] [place] [address] 21380 #### ARUN #### [facility] ([id number]) [address] [place] [address], [address] [place] [address] WBC (Bld) [#/Vol] 7.5 10*3/uL Normal 4.0-11.0 [facility] Comment on above: Performed By: #### Jaimee CH, 56539-9, CMP #### [facility] ([id number]) [address] [place] [address] 70683 #### HA1C #### [facility] ([id number]) [address] [place] [address], [address] [place] [address] COMPREHENSIVE METABOLIC PANE Chay 08-03-2024 Albumin [Mass/Vol] 3.7 g/dL Normal 3.2-5.3 [facility] Comment on above: Performed By: #### Jaimee CH, 21646-1, CMP #### [facility] ([id number]) [address] [place] [address] 07390 #### HA1C #### [facility] ([id number]) [address], [address] [place] [address] ALP [Catalytic activity/Vol] 96 U/L Normal 39-130 [facility] Comment on above: Performed By: #### Jaimee CH, 98514-1, CMP #### [facility] ([id number]) [address] [place] [address] 28060 #### HA1C #### [facility] ([id number]) [address], [address] [place] [address] ALT [Catalytic activity/Vol] 17 U/L Normal 0-31 [facility] Comment on above: Performed By: #### Jaimee CH, 29522-2, CMP #### [facility] ([id number]) [address] [place] [address] 80615 #### HALulu #### [facility] ([id number]) [address], [address] [place] [address] Anion gap [Moles/Vol] 11 mmol/L Normal 5-15 [facility] Comment on above: Performed By: #### Jaimee CH, 45042-8, CMP #### [facility] ([id number]) [address] [place] [address] 45484 #### HALulu #### [facility] ([id number]) [address], [address] [place] [address] AST [Catalytic activity/Vol] 14 U/L Normal 0-41 [facility] Comment on above: Performed By: #### Jaimee CH, 32851-5, CMP #### [facility] ([id number]) [address] [place] [address] 56308 #### HA1C #### [facility] ([id number]) [address], [address] [place] [address] Bilirubin [Mass/Vol] 0.6 mg/dL Normal 0.3-1.2 [facility] Comment on above: Performed By: #### C BCA, 44864-7, CMP #### [facility] ([id number]) [address] [place] [address] 34040 #### HA1C #### [facility] ([id number]) [address], [address] [place] [address] Calcium [Mass/Vol] 9.1 mg/dL Normal 8.5-10.5 [facility] Comment on above: Performed By: #### C BCA, 72493-4, CMP #### [facility] ([id number]) [address] [place] [address] 07863 #### HA1C #### [facility] ([id number]) [address], [address] [place] [address] Chloride [Moles/Vol] 99 mmol/L Normal 98-109 [facility] Comment on above: Performed By: #### C BCA, 20735-0, CMP #### [facility] ([id number]) [address] [place] [address] 18810 #### HA1C #### [facility] ([id number]) [address] [place] [address] CO2 [Moles/Vol] 20 mmol/L Low 22-32 [facility] Comment on above: Performed By: #### C BCA, 93832-1, CMP #### [facility] ([id number]) [address] [place] [address] 06198 #### HA1C #### [facility] ([id number]) [address] [place] [address] Creatinine [Mass/Vol] 2.19 mg/dL High 0.40-1.00 [facility] Comment on above: Result Comment: METH OD TRACEABLE TO IDMS STANDARD Performed By: #### C DIMA, 42927-3, CMP #### [facility] ([id number]) [address] [place] [address] 06160 #### HA1C #### [facility] ([id number]) [address], [address] [place] [address] GFR/1.73 sq M.predicted among non-blacks MDRD (S/P/Bld) [Vol rate/Area] 26 mL/min/{1.73_m2} Low >59 [facility] Comment on above: Result Comment: Reported eGFR is based on the CKD-EPI 2020 equation that does not use a race coefficient. Performed By: #### C DIMA, 05927-8, CMP #### [facility] ([id number]) [address] [place] [address] 31249 #### HA1C #### [facility] ([id number]) [address], [address] [place] [address] Glucose [Mass/Vol] 402 mg/dL Critically high 65-99 [facility] Comment on above: Performed By: #### C DIMA, 02534-4, CMP #### [facility] ([id number]) [address] [place] [address] 38056 #### HA1C #### [facility] ([id number]) [address], [address] [place] [address] Potassium [Moles/Vol] 4.4 mmol/L Normal 3.5-5.0 [facility] Comment on above: Performed By: #### C DIMA, 56790-4, CMP #### [facility] ([id number]) [address] [place] [address] 24850 #### HA1C #### [facility] ([id number]) [address], [address] [place] [address] Protein [Mass/Vol] 7.7 g/dL Normal 6.0-8.0 [facility] Comment on above: Performed By: #### C DIMA, 08643-5, CMP #### [facility] ([id number]) [address] [place] [address] 81199 #### HA1C #### [facility] ([id number]) [address] [facility], [address] [place] [address] Sodium [Moles/Vol] 130 mmol/L Low 134-146 [facility] Comment on above: Performed By: #### C DIMA, 16134-0, CMP #### [facility] ([id number]) [address] [place] [address] 67328 #### HA1C #### [facility] ([id number]) [address] [facility], [address] [place] [address] Urea nitrogen [Mass/Vol] 44 mg/dL High 5-23 [facility] Comment on above: Performed By: #### C DIMA, 47701-4, CMP #### [facility] ([id number]) [address] [place] [address] 86440 #### HA1C #### [facility] ([id number]) [address] [facility], [address] [place] [address] CT BRAIN WO CONT STROKE ALER Ton [...] Contreras MD on 08/03/2024 5:07 PM Normal [facility] CT CTA CAROTIDon 08-03-2024 CT [...] Pack MD on 08/03/2024 5:34 PM Normal [facility] CT CTA HEADon 08-03-[address] CTA HEAD CTA HEAD HISTORY: Blurry vision, worst headache of life COMPARISON: 12/25/2021 TECHNIQUE: CT angiogram performed following intravenous administration of 100 mL Omnipaque 350. Coronal and sagittal and 3-D volume rendered maximum intensity projection images generated and reviewed under concurrent physician supervision. The [place] Symptomatic Carotid Endarterectomy Trial (NASCET) method for [...] Contreras MD on 08/03/2024 5:29 PM Normal [facility] Glucose Glucometer (BldC) [M ass/Vol]on 08-03-2024 Glucose [Mass/Vol] 227 mg/dL High 65-99 [facility] Glucose [Mass/Vol] 369 mg/dL High 65-99 [facility] HGB A1C (GLYCO-HGB)on 2023 Glucose [Mass/Vol] 226 mg/dL Normal [facility] Comment on above: Performed By: #### [facility], [address]9825-5, CMP #### [facility] ([id number]) [address] [place] [id number] #### HA1C #### [facility] ([id number]) [address] [place] [address], [address] [place] [address] HbA1c (Bld) [Mass fraction] 9.5 % High 4.4-5.6 [facility] Comment on above: Result Comment: NOTE ADA Guidelines Result HgbA1c Normal : less than 5.7 % Prediabetes : 5.7 % to 6.4 % Diabetes : > 6.4 % Use with caution in patients with abnormal hemoglobin variants as the half-life of red blood cells and in vivo glycation rates are affected. Performed By: #### [facility], 96017-2, CMP #### [facility] ([id number]) [address] [place] [address] #### HA1C #### [facility] ([id number]) [address] [place] [address], [address] [place] [address] THYROID PROFILEon 08-03-2024 Free T4 [Mass/Vol] 0.81 ng/dL Normal 0.61-1.60 [facility] Comment on above: Performed By: #### 8 9579-7, THYR ####[facility] ([id number])[address] [place] [address] TSH 3.32 uIU/mL Normal 0.49-4.67 [facility] Comment on above: Performed By: #### 8 9579-7, THYR ####[facility] ([id number])[address] [place] [address] Troponin I.cardiac High sens itivity method [Mass/Vol]on 08-03-2024 1 HOUR TROP I, HIGH SENSITIVITY 3 ng/L Normal <16 [facility] Comment on above: Performed By: #### 8 9579-7, THYR #### [facility] ([id number]) [address] [place] [address], [place] [address] TROPONIN I, HIGH SENSITIVITY 4 ng/L Normal <16 [facility] Comment on above: Performed By: #### C [facility], 97051-8, CMP #### [facility] ([id number]) [address] [place] [address], [place] [address] #### HA1C #### [facility] ([id number]) [address] [place] [address], [address] [place] [address] URINALYSISon 08-03-2024 Bilirubin Ql (U) Negative Normal NEG [facility] Comment on above: Performed By: #### U A ####[facility] ([id number])[address] [place] [address] BLOOD/HGB Negative Normal NEG [facility] Comment on above: Performed By: #### U A ####[facility] ([id number])[address] [place] [address], [place] [address] Color (U) YELLOW Normal YELLOW [facility] Comment on above: Performed By: #### U A ####[facility] ([id number])[address] [place] [address] Glucose Ql (U) 500 mg/dL Abnormal NEG [facility] Comment on above: Performed By: #### U A ####[facility] ([id number])[address] [place] [address], [place] [address] Ketones Ql (U) Negative Normal NEG [facility] Comment on above: Performed By: #### U A ####[facility] ([id number])[address] [place] [address], [place] [address] Leukocyte esterase Test strip Ql (U) Trace Abnormal NEG [facility] Comment on above: Performed By: #### U A ####[facility] ([id number])[address] [place] [address] Nitrite Ql (U) Negative Normal NEG [facility] Comment on above: Performed By: #### U A ####[facility] ([id number])[address] [place] [address] pH (U) 6.0 [pH] Normal 5.0-8.5 [facility] Comment on above: Performed By: #### U A ####[facility] ([id number])[address] [place] [address] Protein Ql (U) Negative Normal NEG [facility] Comment on above: Performed By: #### U A ####[facility] ([id number])[address] [place] [address] R.B.CELLS 1 /hpf Normal 0-5 [facility] Comment on above: Performed By: #### U A ####[facility] ([id number])[address] [place] [address] Specific gravity (U) [Rel density] 1.010 Normal 1.003-1.035 [facility] Comment on above: Performed By: #### U A ####[facility] ([id number])[address] [place] [address] SQUAMOUS EPITHELIUM 3 /hpf Normal 0-5 [facility] Comment on above: Performed By: #### U A ####[facility] ([id number])[address] [place] [address] TURBIDITY CLEAR Normal CLEAR [facility] Comment on above: Performed By: #### U A ####[facility] ([id number])[address] [place] [address] Urobilinogen Qn (U) 0.2 {Juanita'U}/dL Normal <1.1 [facility] Comment on above: Performed By: #### U A ####[facility] ([id number])[address] [place] [address] W.B.CELLS 4 /hpf Normal 0-5 [facility] Comment on above: Performed By: #### U A ####[facility] ([id number])[address] [place] [address] URN MACROSCOPIC NURon 2023 BILIRUBIN LE Negative Normal NEG [facility] Comment on above: Performed By: #### N UM #### [facility] ([id number]) [address] [place] [address] BLOOD/HGB LE Negative Normal NEG [facility] Comment on above: Performed By: #### N UM #### [facility] ([id number]) [address] [place] [address] GLUCOSE LE 500 mg/dL Abnormal NEG [facility] Comment on above: Performed By: #### N UM #### [facility] ([id number]) [address] [place] [address] [place] [address] KETONES LE Negative Normal NEG [facility] Comment on above: Performed By: #### N UM #### [facility] ([id number]) [address] [place] [address] LEUKOCYTE ESTERASE LE Small Abnormal NEG [facility] Comment on above: Performed By: #### N UM #### [facility] ([id number]) [address] [place] [address] NITRITE LE Negative Normal NEG [facility] Comment on above: Performed By: #### N UM #### [facility] ([id number]) [address] [place] [address] PH LE 5.5 Normal 5.0-8.5 [facility] Comment on above: Performed By: #### N UM #### [facility] ([id number]) [address] [place] [address] PROTEIN LE Negative Normal NEG [facility] Comment on above: Performed By: #### N UM #### [facility] ([id number]) [address] [place] [address] SPECIFIC GRAVITY LE 1.010 Normal 1.003-1.[address] [facility] Comment on above: Performed By: #### N UM #### [facility] ([id number]) [address] [place] [address] UROBILINOGEN LE 0.2 eu/dL Normal <1.1 [facility] Comment on above: Performed By: #### N UM #### [facility] ([id number]) [address] [place] [address] 12673 PTH INTACTon 03-11-2023 PTH, Intact 31 pg/mL Normal 15-65 [facility] Comment on above: Performed By: #### U MICRO, ERUR #### [facility] [address] [place] [address] Dr. Delmer Rea FERRITINon 03-10-2023 Ferritin [Mass/Vol] 35.0 ng/mL Normal 8.0-252.0 [facility] Comment on above: Performed By: #### L IPA, DLDL, CON, LIPID, T7, CMP, TSH #### [facility] [address] [place] [address] Dr. Delmer Rea HEMOGRAM AND PLATELon 2022 Hematocrit (Bld) [Volume fraction] 35.5 % Critically low 36.0-48.0 [facility] Comment on above: Performed By: #### L IPA, DLDL, CON, LIPID, T7, CMP, TSH #### [facility] [address] [place] [address] Dr. Delmer Rea Hemoglobin (Bld) [Mass/Vol] 11.6 g/dL Critically low 12.0-16.0 [facility] Comment on above: Performed By: #### L IPA, DLDL, CON, LIPID, T7, CMP, TSH #### [facility] [address] [place] [address] Dr. Delmer Rea MCH (RBC) [Entitic mass] 27.3 pg Normal 26.7-34.0 [facility] Comment on above: Performed By: #### L IPA, DLDL, CON, LIPID, T7, CMP, TSH #### [facility] [address] [place] [address] Dr. Delmer Rea MCHC (RBC) [Mass/Vol] 32.7 g/dL Normal 29.9-35.2 [facility] Comment on above: Performed By: #### L IPA, DLDL, CON, LIPID, T7, CMP, TSH #### [facility] [address] [place] [address] Dr. Delmer Rea MCV (RBC) [Entitic vol] 83.5 fL Normal 81.0-99.0 [facility] Comment on above: Performed By: #### L IPA, DLDL, CON, LIPID, T7, CMP, TSH #### [facility] [address] [place] [address] Dr. Delmer Rea PLT 273 103/ul Normal 150-450 [facility] Comment on above: Performed By: #### L IPA, DLDL, CON, LIPID, T7, CMP, TSH #### [facility] [address] [place] [address] Dr. Delmer Rea RBC 4.25 106/ul Normal 4.20-5.40 [facility] Comment on above: Performed By: #### L IPA, DLDL, CON, LIPID, T7, CMP, TSH #### [facility] [address] [place] [address] Dr. Delmer Rea WBC 5.5 103/ul Normal 4.0-11.0 [facility] Comment on above: Performed By: #### L IPA, DLDL, CON, LIPID, T7, CMP, TSH #### [facility] [address] [place] [address] Dr. Delmer Rea IRON AND TIBCon 03-10-2023 % SATURATION 13.6 % Normal [facility] Comment on above: Performed By: #### L IPA, DLDL, CON, LIPID, T7, CMP, TSH #### [facility] [address] [address] [address] Delmer Rea Iron [Mass/Vol] 61.0 ug/dL Normal 50.0-170.0 [facility] Comment on above: Performed By: #### L IPA, DLDL, CON, LIPID, T7, CMP, TSH #### [facility] [address] [address] [address] Delmer Rea TIBC DIRECT 447.0 ug/dL Normal 250.0-450.0 [facility] Comment on above: Performed By: #### L IPA, DLDL, CON, LIPID, T7, CMP, TSH #### [facility] [address] [place] [address] Dr. Delmer Rea MAGNESIUMon 03-10-2023 Magnesium [Mass/Vol] 1.7 mg/dL Critically low 1.8-2.4 [facility] Comment on above: Performed By: #### L IPA, DLDL, CON, LIPID, T7, CMP, TSH #### [facility] [address] [address] [address] Delmer Rea PHOSPHORUSon 03-10-2023 Phosphate [Mass/Vol] 4.9 mg/dL Critically high 2.6-4.7 [facility] Comment on above: Performed By: #### L IPA, DLDL, CON, LIPID, T7, CMP, TSH #### [facility] [address] [address] [address] Delmer Rea PROF 14(COMP METB)on 023 Albumin [Mass/Vol] 3.4 g/dL Normal 3.4-5.0 [facility] Comment on above: Performed By: #### L IPA, DLDL, CON, LIPID, T7, CMP, TSH #### [facility] [address] [place] [address] Dr. Delmer Rea Albumin/Globulin [Mass ratio] 0.8 {ratio} Normal [facility] Comment on above: Performed By: #### L IPA, DLDL, CON, LIPID, T7, CMP, TSH #### [facility] [address] [place] [address] Dr. Delmer Rea ALP [Catalytic activity/Vol] 102 U/L Normal 46-116 [facility] Comment on above: Performed By: #### L IPA, DLDL, CON, LIPID, T7, CMP, TSH #### [facility] [address] [place] [address] Dr. Delmer Rea ALT [Catalytic activity/Vol] 28 U/L Normal 14-59 [facility] Comment on above: Performed By: #### L IPA, DLDL, CNO, LIPID, T7, CMP, TSH #### [facility] [address] [place] [address] Dr. Delmer Rea Anion gap [Moles/Vol] 15.1 mmol/L Normal [facility] Comment on above: Performed By: #### L IPA, DLDL, CON, LIPID, T7, CMP, TSH #### [facility] [address] [place] [address] Dr. Delmer Rea AST [Catalytic activity/Vol] 16 U/L Normal 15-37 [facility] Comment on above: Performed By: #### L IPA, DLDL, CON, LIPID, T7, CMP, TSH #### [facility] [address] [place] [address] Dr. Delmer Rea Bilirubin [Mass/Vol] 0.5 mg/dL Normal 0.2-1.0 [facility] Comment on above: Performed By: #### L IPA, DLDL, CON, LIPID, T7, CMP, TSH #### [facility] [address] [place] [address] Dr. Delmer Rea Calcium [Mass/Vol] 9.5 mg/dL Normal 8.5-10.1 [facility] Comment on above: Performed By: #### L IPA, DLDL, CON, LIPID, T7, CMP, TSH #### [facility] [address] [place] [address] Dr. Delmer Rea Chloride [Moles/Vol] 100 mmol/L Normal 98-107 [facility] Comment on above: Performed By: #### L IPA, DLDL, CON, LIPID, T7, CMP, TSH #### [facility] [address] [address] [address] Delmer Rea CO2 [Moles/Vol] 23.4 mmol/L Normal 21.0-32.0 [facility] Comment on above: Performed By: #### L IPA, DLDL, CON, LIPID, T7, CMP, TSH #### [facility] [address] [place] [address] Dr. Delmer Rea Creatinine [Mass/Vol] 1.86 mg/dL Critically high 0.55-1.02 [facility] Comment on above: Performed By: #### L IPA, DLDL, CON, LIPID, T7, CMP, TSH #### [facility] [address] [place] [address] Dr. Dlemer Rea EGFR-AF KITTITIAN 35 mL/min/1.73m2 Critically low >=60 [facility] Comment on above: Performed By: #### L IPA, DLDL, CON, LIPID, T7, CMP, TSH #### [facility] [address] [place] [address] Dr. Delmer Rea EGFR-NON AF KITTITIAN 29 mL/min/1.73m2 Critically low >=60 [facility] Comment on above: Performed By: #### L IPA, DLDL, CON, LIPID, T7, CMP, TSH #### [facility] [address] [place] [address] Dr. Delmer Rea Globulin (S) [Mass/Vol] 4.3 g/dL Normal [facility] Comment on above: Performed By: #### L IPA, DLDL, CON, LIPID, T7, CMP, TSH #### [facility] [address] [place] [address] Dr. Delmer Rea Glucose [Mass/Vol] 197 mg/dL Critically high 74-106 [facility] Comment on above: Performed By: #### L IPA, DLDL, CON, LIPID, T7, CMP, TSH #### [facility] [address] [address] [address] Delmer Rea Potassium [Moles/Vol] 4.5 mmol/L Normal 3.5-5.1 [facility] Comment on above: Performed By: #### L IPA, DLDL, CON, LIPID, T7, CMP, TSH #### [facility] [address] [place] [address] Dr. Delmer Rea Protein [Mass/Vol] 7.7 g/dL Normal 6.4-8.2 [facility] Comment on above: Performed By: #### L IPA, DLDL, CON, LIPID, T7, CMP, TSH #### [facility] [address] [place] [address] Dr. Delmer Rea Sodium [Moles/Vol] 134 mmol/L Critically low 136-145 [facility] Comment on above: Performed By: #### L IPA, DLDL, CON, LIPID, T7, CMP, TSH #### [facility] [address] [place] [address] Dr. Delmer Rea Urea nitrogen [Mass/Vol] 40.0 mg/dL Critically high 7.0-18.0 [facility] Comment on above: Performed By: #### L IPA, DLDL, CON, LIPID, T7, CMP, TSH #### [facility] [address] [place] [address] Dr. Delmer Rea Urea nitrogen/Creatinine [Mass ratio] 21.5 mg/mg Normal [facility] Comment on above: Performed By: #### L IPA, DLDL, CON, LIPID, T7, CMP, TSH #### [facility] [address] [place] [address] Dr. Delmer Rea URIC ACID SERUMon 03-10-2023 Urate [Mass/Vol] 7.1 mg/dL Critically high 2.6-6.0 [facility] Comment on above: Performed By: #### L IPA, DLDL, CON, LIPID, T7, CMP, TSH #### [facility] [address] [place] [address] Dr. Delmer Rea VIT B12 AND FOLATEon 023 Cobalamin (Vitamin B12) [Mass/Vol] 369.0 pg/mL Normal 193.0-986.0 [facility] Comment on above: Performed By: #### L IPA, DLDL, CON, LIPID, T7, CMP, TSH #### [facility] [address] [address] [address] Delmer Rea FOLATE 20.30 ng/mL Normal 8.60-58.90 [facility] Comment on above: Performed By: #### L IPA, DLDL, CON, LIPID, T7, CMP, TSH #### [facility] [address] [place] [address] Dr. Delmer Rea VITAMIN D 25 OHon 03-10-2023 VIT D 25-OH 13.0 ng/mL Normal [facility] Comment on above: Performed By: #### L IPA, DLDL, CON, LIPID, T7, CMP, TSH #### [facility] [address] [place] [address] Dr. Delmer Rea VIT D RANGES SEE BELOW Normal [facility] Comment on above: Result Comment: <20 ng/mL Vit D deficient 20 - <30 ng/mL Vit D insufficient 30 - 100 ng/mL Vit D sufficient >100 ng/mL Potential Toxicity Performed By: #### L IPA, DLDL, CON, LIPID, T7, CMP, TSH #### [facility] [address] [place] [address] Dr. Delmer Rea PROF 14(COMP METB)on 023 Albumin [Mass/Vol] 3.4 g/dL Normal 3.4-5.0 [facility] Comment on above: Performed By: #### L IPA, DLDL, CON, LIPID, T7, CMP, TSH #### [facility] [address] [place] [address] Dr. Delmer Rea Albumin/Globulin [Mass ratio] 0.9 {ratio} Normal [facility] Comment on above: Performed By: #### L IPA, DLDL, CON, LIPID, T7, CMP, TSH #### [facility] [address] [place] [address] Dr. Delmer Rea ALP [Catalytic activity/Vol] 95 U/L Normal 46-116 [facility] Comment on above: Performed By: #### L IPA, DLDL, CON, LIPID, T7, CMP, TSH #### [facility] [address] [address] [address] Delmer Rea ALT [Catalytic activity/Vol] 23 U/L Normal 14-59 [facility] Comment on above: Performed By: #### L IPA, DLDL, CON, LIPID, T7, CMP, TSH #### [facility] [address] [place] [address] Dr. Delmer Rea Anion gap [Moles/Vol] 15.2 mmol/L Normal [facility] Comment on above: Performed By: #### L IPA, DLDL, CON, LIPID, T7, CMP, TSH #### [facility] [address] [place] [address] Dr. Delmer Rea AST [Catalytic activity/Vol] 8 U/L Critically low 15-37 [facility] Comment on above: Performed By: #### L IPA, DLDL, CON, LIPID, T7, CMP, TSH #### [facility] [address] [place] [address] Dr. Delmer Rea Bilirubin [Mass/Vol] 0.3 mg/dL Normal 0.2-1.0 [facility] Comment on above: Performed By: #### L IPA, DLDL, CON, LIPID, T7, CMP, TSH #### [facility] [address] [place] [address] Dr. Delmer Rea Calcium [Mass/Vol] 9.2 mg/dL Normal 8.5-10.1 [facility] Comment on above: Performed By: #### L IPA, DLDL, CON, LIPID, T7, CMP, TSH #### [facility] [address] [address] [address] Delmer Rea Chloride [Moles/Vol] 102 mmol/L Normal 98-107 [facility] Comment on above: Performed By: #### L IPA, DLDL, CON, LIPID, T7, CMP, TSH #### [facility] [address] [address] [address] Delmer Rea CO2 [Moles/Vol] 22.6 mmol/L Normal 21.0-32.0 [facility] Comment on above: Performed By: #### L IPA, DLDL, CON, LIPID, T7, CMP, TSH #### [facility] [address] [place] [address] Dr. Delmer Rea Creatinine [Mass/Vol] 1.89 mg/dL Critically high 0.55-1.02 [facility] Comment on above: Performed By: #### L IPA, DLDL, CON, LIPID, T7, CMP, TSH #### [facility] [address] [place] [address] Dr. Delmer Rea EGFR-AF KITTITIAN 34 mL/min/1.73m2 Critically low >=60 [facility] Comment on above: Performed By: #### L IPA, DLDL, CON, LIPID, T7, CMP, TSH #### [facility] [address] [place] [address] Dr. Delmer Rea EGFR-NON AF KITTITIAN 28 mL/min/1.73m2 Critically low >=60 [facility] Comment on above: Performed By: #### L IPA, DLDL, CON, LIPID, T7, CMP, TSH #### [facility] [address] [place] [address] Dr. Delmer Rea Globulin (S) [Mass/Vol] 3.9 g/dL Normal [facility] Comment on above: Performed By: #### L IPA, DLDL, CON, LIPID, T7, CMP, TSH #### [facility] [address] [place] [address] Dr. Delmer Rea Glucose [Mass/Vol] 257 mg/dL Critically high 74-106 [facility] Comment on above: Performed By: #### L IPA, DLDL, CON, LIPID, T7, CMP, TSH #### [facility] [address] [place] [address] Dr. Delmer Rea Potassium [Moles/Vol] 4.8 mmol/L Normal 3.5-5.1 [facility] Comment on above: Performed By: #### L IPA, DLDL, CON, LIPID, T7, CMP, TSH #### [facility] [address] [address] [address] Delmer Rea Protein [Mass/Vol] 7.3 g/dL Normal 6.4-8.2 [facility] Comment on above: Performed By: #### L IPA, DLDL, CON, LIPID, T7, CMP, TSH #### [facility] [address] [place] [address] Dr. Delmer Rea Sodium [Moles/Vol] 135 mmol/L Critically low 136-145 [facility] Comment on above: Performed By: #### L IPA, DLDL, CON, LIPID, T7, CMP, TSH #### [facility] [address] [place] [address] Dr. Delmer Rea Urea nitrogen [Mass/Vol] 39.0 mg/dL Critically high 7.0-18.0 [facility] Comment on above: Performed By: #### L IPA, DLDL, CON, LIPID, T7, CMP, TSH #### [facility] [address] [place] [address] Dr. Delmer Rea Urea nitrogen/Creatinine [Mass ratio] 20.6 mg/mg Normal [facility] Comment on above: Performed By: #### L IPA, DLDL, CON, LIPID, T7, CMP, TSH #### [facility] [address] [place] [address] Dr. Delmer Rea PROF 14(COMP METB)on 023 Albumin [Mass/Vol] 3.5 g/dL Normal 3.4-5.0 [facility] Comment on above: Performed By: #### U MICRO, ERUR #### [facility] [address] [place] [address] Dr. Delmer Rea Albumin/Globulin [Mass ratio] 0.8 {ratio} Normal [facility] Comment on above: Performed By: #### U MICRO, ERUR #### [facility] [address] [place] [address] Dr. Delmer Rea ALP [Catalytic activity/Vol] 113 U/L Normal 46-116 [facility] Comment on above: Performed By: #### U MICRO, ERUR #### [facility] [address] [address] [address] Delmer Rea ALT [Catalytic activity/Vol] 23 U/L Normal 14-59 [facility] Comment on above: Performed By: #### U MICRO, ERUR #### [facility] [address] [place] [address] Dr. Delmer Rea Anion gap [Moles/Vol] 15.5 mmol/L Normal [facility] Comment on above: Performed By: #### U MICRO, ERUR #### [facility] [address] [place] [address] Dr. Delmer Rea AST [Catalytic activity/Vol] 15 U/L Normal 15-37 [facility] Comment on above: Performed By: #### U MICRO, ERUR #### [facility] [address] [place] [address] Dr. Delmer Rea Bilirubin [Mass/Vol] 0.3 mg/dL Normal 0.2-1.0 [facility] Comment on above: Performed By: #### U MICRO, ERUR #### [facility] [address] [place] [address] Dr. Delmer Rea Calcium [Mass/Vol] 9.5 mg/dL Normal 8.5-10.1 [facility] Comment on above: Performed By: #### U MICRO, ERUR #### [facility] [address] [place] [address] Dr. Delmer Rea Chloride [Moles/Vol] 104 mmol/L Normal 98-107 [facility] Comment on above: Performed By: #### U MICRO, ERUR #### [facility] [address] [place] [address] Dr. Delmer Rea CO2 [Moles/Vol] 25.1 mmol/L Normal 21.0-32.0 [facility] Comment on above: Performed By: #### U MICRO, ERUR #### [facility] [address] [place] [address] Dr. Delmer Rea Creatinine [Mass/Vol] 1.29 mg/dL Critically high 0.55-1.02 [facility] Comment on above: Performed By: #### U MICRO, ERUR #### [facility] [address] [address] [address] Delmer Rea EGFR-AF KITTITIAN 53 mL/min/1.73m2 Critically low >=60 [facility] Comment on above: Performed By: #### U MICRO, ERUR #### [facility] [address] [address] [address] Delmer Rea EGFR-NON AF KITTITIAN 44 mL/min/1.73m2 Critically low >=60 [facility] Comment on above: Performed By: #### U MICRO, ERUR #### [facility] [address] [address] [address] Delmer Rea Globulin (S) [Mass/Vol] 4.2 g/dL Normal [facility] Comment on above: Performed By: #### U MICRO, ERUR #### [facility] [address] [address] [address] Delmer Rea Glucose [Mass/Vol] 135 mg/dL Critically high 74-106 [facility] Comment on above: Performed By: #### U MICRO, ERUR #### [facility] [address] [address] [address] Delmer Rea Potassium [Moles/Vol] 4.6 mmol/L Normal 3.5-5.1 [facility] Comment on above: Performed By: #### U MICRO, ERUR #### [facility] [address] [address] [address] Delmer Rea Protein [Mass/Vol] 7.7 g/dL Normal 6.4-8.2 [facility] Comment on above: Performed By: #### U MICRO, ERUR #### [facility] [address] [address] [address] Delmer Rea Sodium [Moles/Vol] 140 mmol/L Normal 136-145 [facility] Comment on above: Performed By: #### U MICRO, ERUR #### [facility] [address] [address] [address] Delmer Rea Urea nitrogen [Mass/Vol] 28.0 mg/dL Critically high 7.0-18.0 [facility] Comment on above: Performed By: #### U MICRO, ERUR #### [facility] [address] [place] [address] Dr. Delmer Rea Urea nitrogen/Creatinine [Mass ratio] 21.7 mg/mg Normal [facility] Comment on above: Performed By: #### U MICRO, ERUR #### [facility] [address] [place] [address] Dr. Delmer Rea H PYLORI ANTIBODY IGGon 11-07 H. PYLORI IGG ABS 4.50 Index Value Critically high 0.00-0. 79 [facility] Comment on above: Result Comment: Nega tive <0.80 Equivocal 0.80 - 0.89 Positive >0.89 Performed By: #### L IPA, DLDL, CON, LIPID, T7, CMP, TSH #### [facility] [address] [place] [address] Dr. Delmer Rea AMYLASEon 11-25-2022 Amylase [Catalytic activity/Vol] 42 U/L Normal 25-115 [facility] Comment on above: Performed By: #### L IPA, DLDL, CON, LIPID, T7, CMP, TSH #### [facility] [address] [place] [address] Dr. Delmer Rea CBC AUTO DIFFon 11-25-2022 BASO # 0.0 103/ul Normal 0.0-0.1 [facility] Comment on above: Performed By: #### U MICRO, ERUR #### [facility] [address] [place] [address] Dr. Delmer Rea Basophils/100 WBC (Bld) 0.6 % Normal 0.2-2.0 [facility] Comment on above: Performed By: #### U MICRO, ERUR #### [facility] [address] [place] [address] Dr. Delmer Rea EO # 0.2 103/ul Normal 0.0-0.7 [facility] Comment on above: Performed By: #### U MICRO, ERUR #### [facility] [address] [place] [address] Dr. Delmer Rea Eosinophils/100 WBC (Bld) 3.2 % Normal 0.9-7.0 [facility] Comment on above: Performed By: #### U MICRO, ERUR #### [facility] [address] [place] [address] Dr. Delmer Rea Erythrocyte distribution width (RBC) [Ratio] 13.5 % Normal 11.0-15.0 [facility] Comment on above: Performed By: #### U MICRO, ERUR #### [facility] [address] [place] [address] Dr. Delmer Rea Hematocrit (Bld) [Volume fraction] 28.6 % Critically low 36.0-48.0 [facility] Comment on above: Performed By: #### U MICRO, ERUR #### [facility] [address] [place] [address] Dr. Delmer Rea Hemoglobin (Bld) [Mass/Vol] 10.4 g/dL Critically low 12.0-16.0 [facility] Comment on above: Performed By: #### U MICRO, ERUR #### [facility] [address] [place] [address] Dr. Delmer Rea IG # 0.06 10e3/ul Critically high 0.00-0.03 [facility] Comment on above: Performed By: #### U MICRO, ERUR #### [facility] [address] [place] [address] Dr. Delmer Rea IG % 0.9 % Critically high 0.0-0.5 [facility] Comment on above: Performed By: #### U MICRO, ERUR #### [facility] [address] [place] [address] Dr. Delmer Rea LYMPH # 2.2 103/ul Normal 1.2-3.8 [facility] Comment on above: Performed By: #### U MICRO, ERUR #### [facility] [address] [place] [address] Dr. Delmer Rea Lymphocytes/100 WBC (Bld) 32.2 % Normal 20.5-60.0 [facility] Comment on above: Performed By: #### U MICRO, ERUR #### [facility] [address] [place] [address] Dr. Delmer Rea MANUAL DIFF REQ NO Normal [facility] Comment on above: Performed By: #### U MICRO, ERUR #### [facility] [address] [place] [address] Dr. Delmer Rea MCH (RBC) [Entitic mass] 27.6 pg Normal 26.7-34.0 [facility] Comment on above: Performed By: #### U MICRO, ERUR #### [facility] [address] [place] [address] Dr. Delmer Rea MCHC (RBC) [Mass/Vol] 36.4 g/dL Critically high 29.9-35.2 [facility] Comment on above: Performed By: #### U MICRO, ERUR #### [facility] [address] [place] [address] Dr. Delmer Rea MCV (RBC) [Entitic vol] 75.9 fL Critically low 81.0-99.0 [facility] Comment on above: Performed By: #### U MICRO, ERUR #### [facility] [address] [place] [address] Dr. Delmer Rea MONO # 0.7 103/ul Normal 0.3-0.8 [facility] Comment on above: Performed By: #### U MICRO, ERUR #### [facility] [address] [place] [address] Dr. Delmer Rea Monocytes/100 WBC (Bld) 9.4 % Normal 1.7-12.0 [facility] Comment on above: Performed By: #### U MICRO, ERUR #### [facility] [address] [place] [address] Dr. Delmer Rea NEUT # 3.7 103/ul Normal 1.4-6.5 [facility] Comment on above: Performed By: #### U MICRO, ERUR #### [facility] [address] [place] [address] Dr. Delmer Rea Neutrophils/100 WBC (Bld) 53.7 % Normal 43.0-75.0 [facility] Comment on above: Performed By: #### U MICRO, ERUR #### [facility] [address] [address] [address] Delmer Rea Platelet mean volume (Bld) [Entitic vol] 9.4 fL Critically low 9.5-13.5 [facility] Comment on above: Performed By: #### U MICRO, ERUR #### [facility] [address] [address] [address] Delmer Rea PLT 313 103/ul Normal 150-450 [facility] Comment on above: Performed By: #### U MICRO, ERUR #### [facility] [address] [address] [address] Delmer Rea RBC 3.77 106/ul Critically low 4.20-5.40 [facility] Comment on above: Performed By: #### U MICRO, ERUR #### [facility] [address] [address] [address] Delmer Rea WBC 6.9 103/ul Normal 4.0-11.0 [facility] Comment on above: Performed By: #### U MICRO, ERUR #### [facility] [address] [address] [address] Delmer Rea DIRECT LDLon 11-25-2022 Cholesterol in LDL [Mass/Vol] 102 mg/dL Normal [facility] Comment on above: Performed By: #### L IPA, DLDL, CON, LIPID, T7, CMP, TSH #### [facility] [address] [address] [address] Delmer Rea DLDL NORMAL SEE BELOW Normal [facility] Comment on above: Result Comment: <100 mg/dl OPTIMAL 100 - 129 mg/dl NEAR OR ABOVE OPTIMAL 130 - 159 mg/dl BORDERLINE HIGH 160 - 189 mg/dl HIGH >190 mg/dl VERY HIGH Performed By: #### L IPA, DLDL, CON, LIPID, T7, CMP, TSH #### [facility] [address] [address] [address] Delmer Rea FREE THYROXINE INDEX T7on FTI 4.31 Normal 1.30-4.50 [facility] Comment on above: Performed By: #### L IPA, DLDL, CON, LIPID, T7, CMP, TSH #### [facility] [address] [address] [address] Delmer Rea T3U 35.0 % Normal 30.0-39.0 [facility] Comment on above: Performed By: #### L IPA, DLDL, CON, LIPID, T7, CMP, TSH #### [facility] [address] [address] [address] Delmer Rea T4 [Mass/Vol] 12.30 ug/dL Normal 4.80-13.90 [facility] Comment on above: Performed By: #### L IPA, DLDL, CON, LIPID, T7, CMP, TSH #### [facility] [address] [address] [address] Delmer Rea GLYCOHEMOGLOBIN A1Con 2022 ADA RECOMMENDATION SEE BELOW Normal [facility] Comment on above: Result Comment: ADA RECOMMENDED LIMIT 4.0 - 6.0 ADA THERAPEUTIC TARGET < 7.0 ACTION SUGGESTED > 7.0 Performed By: #### U MICRO, ERUR #### [facility] [address] [address] [address] eDlmer Rea Glucose [Mass/Vol] 180 mg/dL Normal [facility] Comment on above: Performed By: #### U MICRO, ERUR #### [facility] [address] [address] [address] Delmer Rea HbA1c (Bld) [Mass fraction] 7.9 % Critically high 4.5-6.2 [facility] Comment on above: Performed By: #### U MICRO, ERUR #### [facility] [address] [address] [address] Delmer Rea IRONon 11-25-2022 Iron [Mass/Vol] 35.0 ug/dL Critically low 50.0-170.0 [facility] Comment on above: Performed By: #### L IPA, DLDL, CON, LIPID, T7, CMP, TSH #### [facility] [address] [address] [address] Delmer Rea LIPASEon 11-25-2022 Lipase [Catalytic activity/Vol] 155.0 U/L Normal 73.0-393.0 [facility] Comment on above: Performed By: #### L IPA, DLDL, CON, LIPID, T7, CMP, TSH #### [facility] [address] [address] [address] Delmer Rea LIPID PROFILEon 11-25-2022 CHOL-HDL RATIO NORM SEE BELOW Normal [facility] Comment on above: Result Comment: 3.3 - 4.4 LOW RISK 4.4 - 7.1 AVERAGE RISK 7.1 - 11.0 MODERATE RISK >11.0 HIGH RISK Performed By: #### L IPA, DLDL, CON, LIPID, T7, CMP, TSH #### [facility] [address] [address] [address] Delmer Rea Cholesterol [Mass/Vol] 238 mg/dL Critically high <=200 [facility] Comment on above: Performed By: #### L IPA, DLDL, CON, LIPID, T7, CMP, TSH #### [facility] [address] [address] [address] Delmer Rea Cholesterol in HDL [Mass/Vol] 39 mg/dL Critically low 40-60 [facility] Comment on above: Performed By: #### L IPA, DLDL, CON, LIPID, T7, CMP, TSH #### [facility] [address] [address] [address] Delmer Rea Cholesterol.total/Ch olesterol in HDL [Mass ratio] 6.1 {ratio} Normal [facility] Comment on above: Performed By: #### L IPA, DLDL, CON, LIPID, T7, CMP, TSH #### [facility] [address] [address] [address] Delmer Rea HDL NORMAL > or = 60 mg/dl - LO W CARDIOVASCULAR RISK <40 mg/dl - HIGH CARDIOVASCULAR RISK Normal [facility] Comment on above: Performed By: #### L IPA, DLDL, CON, LIPID, T7, CMP, TSH #### [facility] [address] [address] [address] Delmer Rea LDL CALC NORMAL SEE BELOW Normal [facility] Comment on above: Result Comment: <100 mg/dl OPTIMAL 100 - 129 mg/dl NEAR OR ABOVE OPTIMAL 130 - 159 mg/dl BORDERLINE HIGH 160 - 189 mg/dl HIGH >190 mg/dl VERY HIGH Performed By: #### L IPA, DLDL, CON, LIPID, T7, CMP, TSH #### [facility] [address] [address] [address] Delmer Rea Triglyceride [Mass/Vol] 579 mg/dL Critically high <=150 [facility] Comment on above: Performed By: #### L IPA, DLDL, CON, LIPID, T7, CMP, TSH #### [facility] [address] [address] [address] Delmer Rea VLDL CALC 115.8 mg/dL Normal [facility] Comment on above: Performed By: #### L IPA, DLDL, CON, LIPID, T7, CMP, TSH #### [facility] [address] [place] [address] Dr. Delmer Rea PROF 14(COMP METB)on 023 Albumin [Mass/Vol] 3.5 g/dL Normal 3.4-5.0 [facility] Comment on above: Performed By: #### L IPA, DLDL, CON, LIPID, T7, CMP, TSH #### [facility] [address] [place] [address] Dr. Delmer Rea Albumin/Globulin [Mass ratio] 0.8 {ratio} Normal [facility] Comment on above: Performed By: #### L IPA, DLDL, CON, LIPID, T7, CMP, TSH #### [facility] [address] [address] [address] Delmer Rea ALP [Catalytic activity/Vol] 110 U/L Normal 46-116 [facility] Comment on above: Performed By: #### L IPA, DLDL, CON, LIPID, T7, CMP, TSH #### [facility] [address] [address] [address] Delmer Rea ALT [Catalytic activity/Vol] 19 U/L Normal 14-59 [facility] Comment on above: Performed By: #### L IPA, DLDL, CON, LIPID, T7, CMP, TSH #### [facility] [address] [address] [address] Delmer Rea Anion gap [Moles/Vol] 17.0 mmol/L Normal [facility] Comment on above: Performed By: #### L IPA, DLDL, CON, LIPID, T7, CMP, TSH #### [facility] [address] [address] [address] Delmer Rea AST [Catalytic activity/Vol] 13 U/L Critically low 15-37 [facility] Comment on above: Performed By: #### L IPA, DLDL, CON, LIPID, T7, CMP, TSH #### [facility] [address] [place] [address] Dr. Delmer Rea Bilirubin [Mass/Vol] 0.3 mg/dL Normal 0.2-1.0 [facility] Comment on above: Performed By: #### L IPA, DLDL, CON, LIPID, T7, CMP, TSH #### [facility] [address] [place] [address] Dr. Delmer Rea Calcium [Mass/Vol] 9.6 mg/dL Normal 8.5-10.1 [facility] Comment on above: Performed By: #### L IPA, DLDL, CON, LIPID, T7, CMP, TSH #### [facility] [address] [address] [address] Delmer Rea Chloride [Moles/Vol] 104 mmol/L Normal 98-107 [facility] Comment on above: Performed By: #### L IPA, DLDL, CON, LIPID, T7, CMP, TSH #### [facility] [address] [place] [address] Dr. Delmer Rea CO2 [Moles/Vol] 22.7 mmol/L Normal 21.0-32.0 [facility] Comment on above: Performed By: #### L IPA, DLDL, CON, LIPID, T7, CMP, TSH #### [facility] [address] [place] [address] Dr. Delmer Rea Creatinine [Mass/Vol] 2.15 mg/dL Critically high 0.55-1.02 [facility] Comment on above: Performed By: #### L IPA, DLDL, CON, LIPID, T7, CMP, TSH #### [facility] [address] [place] [address] Dr. Delmer Rea EGFR-AF KITTITIAN 29 mL/min/1.73m2 Critically low >=60 [facility] Comment on above: Performed By: #### L IPA, DLDL, CON, LIPID, T7, CMP, TSH #### [facility] [address] [place] [address] Dr. Delmer Rea EGFR-NON AF KITTITIAN 24 mL/min/1.73m2 Critically low >=60 [facility] Comment on above: Performed By: #### L IPA, DLDL, CON, LIPID, T7, CMP, TSH #### [facility] [address] [place] [address] Dr. Delmer Rea Globulin (S) [Mass/Vol] 4.3 g/dL Normal [facility] Comment on above: Performed By: #### L IPA, DLDL, CON, LIPID, T7, CMP, TSH #### [facility] [address] [place] [address] Dr. Delmer Rea Glucose [Mass/Vol] 189 mg/dL Critically high 74-106 [facility] Comment on above: Performed By: #### L IPA, DLDL, CON, LIPID, T7, CMP, TSH #### [facility] [address] [place] [address] Dr. Delmer Rea Potassium [Moles/Vol] 4.7 mmol/L Normal 3.5-5.1 [facility] Comment on above: Performed By: #### L IPA, DLDL, CON, LIPID, T7, CMP, TSH #### [facility] [address] [place] [address] Dr. Delmer Rea Protein [Mass/Vol] 7.8 g/dL Normal 6.4-8.2 [facility] Comment on above: Performed By: #### L IPA, DLDL, CON, LIPID, T7, CMP, TSH #### [facility] [address] [place] [address] Dr. Delmer Rea Sodium [Moles/Vol] 139 mmol/L Normal 136-145 [facility] Comment on above: Performed By: #### L IPA, DLDL, CON, LIPID, T7, CMP, TSH #### [facility] [address] [address] [address] Delmer Rea Urea nitrogen [Mass/Vol] 48.0 mg/dL Critically high 7.0-18.0 [facility] Comment on above: Performed By: #### L IPA, DLDL, CON, LIPID, T7, CMP, TSH #### [facility] [address] [address] [address] Delmer Rea Urea nitrogen/Creatinine [Mass ratio] 22.3 mg/mg Normal [facility] Comment on above: Performed By: #### L IPA, DLDL, CON, LIPID, T7, CMP, TSH #### [facility] [address] [place] [address] Dr. Delmer Rea TSHon 11-25-2022 TSH 0.063 uIU/mL Critically low 0.358-3.740 [facility] Comment on above: Performed By: #### L IPA, DLDL, CON, LIPID, T7, CMP, TSH #### [facility] [address] [address] [address] Delmer Rea CULTURE URINEon 09-12-2022 CULTURE URINE Culture Observations : LIGHT GROWTH OF MIXED GENITAL JOSE. NO POTENTIAL PATHOGENS SEEN. Normal [facility] Comment on above: Performed By: #### L IPA, DLDL, CON, LIPID, T7, CMP, TSH #### [facility] [address] [place] [address] Dr. Delmer Rea URINE MICROSCOPIC ONLYon BACTERIA MODERATE Abnormal NONE SEEN [facility] Comment on above: Performed By: #### L IPA, DLDL, CON, LIPID, T7, CMP, TSH #### [facility] [address] [place] [address] Dr. Delmer Rea Bacteria identified Cx Nom (U) CX ALREADY ORDERED Normal [facility] Comment on above: Performed By: #### L IPA, DLDL, CON, LIPID, T7, CMP, TSH #### [facility] [address] [address] [address] Delmer Rea CAST NONE SEEN Normal NONE SEEN [facility] Comment on above: Performed By: #### L IPA, DLDL, CON, LIPID, T7, CMP, TSH #### [facility] [address] [address] [address] Delmer Rea Crystals LM Nom (Urine sed) NONE SEEN Normal NONE SEEN [facility] Comment on above: Performed By: #### L IPA, DLDL, CON, LIPID, T7, CMP, TSH #### [facility] [address] [address] [address] Delmer Rea Epithelial cells LM Ql (Urine sed) FEW Abnormal NONE SEEN /RARE [facility] Comment on above: Performed By: #### L IPA, DLDL, CON, LIPID, T7, CMP, TSH #### [facility] [address] [address] [address] Delmer Rea MUCOUS NONE SEEN Normal NONE SEEN [facility] Comment on above: Performed By: #### L IPA, DLDL, CON, LIPID, T7, CMP, TSH #### [facility] [address] [address] [address] Delmer Rea RBC 5-10 Abnormal 0-2 [facility] Comment on above: Performed By: #### L IPA, DLDL, CON, LIPID, T7, CMP, TSH #### [facility] [address] [address] [address] Delmer Rea WBC (U) [#/Vol] /uL Abnormal NONE SEEN [facility] Comment on above: Performed By: #### L IPA, DLDL, CON, LIPID, T7, CMP, TSH #### [facility] [address] [address] [address] Delmer Rea YEAST PRESENT Abnormal NONE SEEN [facility] Comment on above: Performed By: #### L IPA, DLDL, CON, LIPID, T7, CMP, TSH #### [facility] [address] [address] [address] Delmer Rea NM KIDNEY W FLOW [...] Akil Cummings MD 08/05/[address] Final result Normal [facility] APTTon 07-26-2022 aPTT Coag (Bld) [Time] 23.4 s Normal 20.5-30.5 [facility] Comment on above: Result Comment: IV Heparin Therapy Range: 48.6-77.8 Performed By: #### A NAX, IFX, PHEP, FKLLC, PE #### [employer] [address] [place] [address] [employer]: Bala Skelton MD aPTT Coag (Bld) [Time] 23.4 s [facility] Comment on above: IV Heparin Therapy Range: 48.6-77.8 CBC with Auto Differentialon 07-26-2022 Absolute Eos # 0.29 [place] [facility] Absolute Immature Granulocyte 0.09 [facility] Absolute Lymph # 2.26 [facility] Absolute Dickey # 0.65 [facility] Basophils (Bld) [#/Vol] 0.04 10*3/uL [facility] Basophils/100 WBC (Bld) 1 % 0 - 2 % [facility] Eosinophils/100 WBC (Bld) 4 % 1 - 4 % [facility] Hematocrit (Bld) [Volume fraction] 29.5 % Low 36.3 - 47.1 % [facility] Hemoglobin (Bld) [Mass/Vol] 10.1 g/dL Low 11.9 - 15.1 g/dL [facility] Immature granulocytes/100 WBC (Bld) 1 % High 0 [facility] Interpretation and review of laboratory results Abnormal [facility] Lymphocytes/100 WBC (Bld) 27 % 24 - 43 % [facility] MCH (RBC) [Entitic mass] 29.3 pg 25.2 - 33.5 pg [facility] MCHC (RBC) [Mass/Vol] 34.2 g/dL 28.4 - 34.8 g/dL [facility] MCV (RBC) [Entitic vol] 85.5 fL 82.6 - 102.9 fL [facility] Monocytes/100 WBC (Bld) 8 % 3 - 12 % [facility] NRBC Automated 0.0 0.0 per 100 WBC [facility] Platelet distribution width (Bld) [Ratio] 13.4 % 11.8 - 14.4 % [facility] Platelet mean volume (Bld) [Entitic vol] 9.5 fL 8.1 - 13.5 fL [facility] Platelets (Bld) [#/Vol] 311 10*3/uL [facility] RBC (Bld) [#/Vol] 3.45 10*6/uL Low 3.95 - 5.1 1 m/uL [facility] Segmented neutrophils/100 WBC (Bld) 59 % 36 - 65 % [facility] Segs Absolute 5.00 [facility] WBC (Bld) [#/Vol] 8.3 10*3/uL [facility] CBC with Diffon 07-26-2022 Abs. Basophil 0.04 k/uL Normal 0.00-0.20 [facility] Comment on above: Performed By: #### A NAX, IFX, PHEP, FKLLC, PE #### [address] [address] [employer]: Bala Skelton MD Abs.Imm.Granulocyte 0.09 k/uL Normal 0.00-0.30 [facility] Comment on above: Performed By: #### A NAX, IFX, PHEP, FKLLC, PE #### [facility] [employer] [address] [place] [address] [employer]: Bala Skelton MD Abs.Neutrophil (Seg) 5.00 k/uL Normal 1.50-8.10 [facility] Comment on above: Performed By: #### A NAX, IFX, PHEP, FKLLC, PE #### [facility] [employer] [address] [place] [id number] [employer]: Bala Skelton MD Basophils/100 WBC (Bld) 1 % Normal 0-2 [facility] Comment on above: Performed By: #### A NAX, IFX, PHEP, FKLLC, PE #### [facility] [employer] [address] [place] [id number] [employer]: Bala Skelton MD Eosinophils (Bld) [#/Vol] 0.29 10*3/uL Normal 0.00-0.44 [facility] Comment on above: Performed By: #### A NAX, IFX, PHEP, FKLLC, PE #### [address] [address] [employer]: Bala Skelton MD Eosinophils/100 WBC (Bld) 4 % Normal 1-4 [facility] Comment on above: Performed By: #### A NAX, IFX, PHEP, FKLLC, PE #### [address] [address] [employer]: Bala Skelton MD Erythrocyte distribution width (RBC) [Ratio] 13.4 % Normal 11.8-14.4 [facility] Comment on above: Performed By: #### A NAX, IFX, PHEP, FKLLC, PE #### [address] [address] [employer]: Bala Skelton MD Hematocrit (Bld) [Volume fraction] 29.5 % Low 36.3-47.1 [facility] Comment on above: Performed By: #### A NAX, IFX, PHEP, FKLLC, PE #### [address] [address] [employer]: Bala Skelton MD Hemoglobin (Bld) [Mass/Vol] 10.1 g/dL Low 11.9-15.1 [facility] Comment on above: Performed By: #### A NAX, IFX, PHEP, FKLLC, PE #### [address] [address] [employer]: Bala Skelton MD Immature granulocytes/100 WBC (Bld) 1 % High 0 [facility] Comment on above: Performed By: #### A NAX, IFX, PHEP, FKLLC, PE #### [address] [address] [employer]: Bala Skelton MD Lymphocytes (Bld) [#/Vol] 2.26 10*3/uL Normal 1.10-3.70 [facility] Comment on above: Performed By: #### A NAX, IFX, PHEP, FKLLC, PE #### [address] [address] [employer]: Bala Skelton MD Lymphocytes/100 WBC (Bld) 27 % Normal 24-43 [facility] Comment on above: Performed By: #### A NAX, IFX, PHEP, FKLLC, PE #### [place] [address] [employer]: Bala Skelton MD MCH (RBC) [Entitic mass] 29.3 pg Normal 25.2-33.5 [facility] Comment on above: Performed By: #### A NAX, IFX, PHEP, FKLLC, PE #### [place] [address] [employer]: Bala Skelton MD MCHC (RBC) [Mass/Vol] 34.2 g/dL Normal 28.4-34.8 [facility] Comment on above: Performed By: #### A NAX, IFX, PHEP, FKLLC, PE #### [address] [id number] [employer]: Bala Skelton MD MCV (RBC) [Entitic vol] 85.5 fL Normal 82.6-102.9 [facility] Comment on above: Performed By: #### A NAX, IFX, PHEP, FKLLC, PE #### [place] [address] [employer]: Bala Skelton MD Monocytes (Bld) [#/Vol] 0.65 10*3/uL Normal 0.10-1.20 [facility] Comment on above: Performed By: #### A NAX, IFX, PHEP, FKLLC, PE #### [address] [address] [employer]: Bala Skelton MD Monocytes/100 WBC (Bld) 8 % Normal 3-12 [facility] Comment on above: Performed By: #### A NAX, IFX, PHEP, FKLLC, PE #### [address] [address] [employer]: Bala Skelton MD Neutrophil (Seg) 59 % Normal 36-65 [facility] Comment on above: Performed By: #### A NAX, IFX, PHEP, FKLLC, PE #### [address] [address] [employer]: Bala Skelton MD NRBC Automated 0.0 per 100 WBC Normal 0.0 [facility] Comment on above: Performed By: #### A NAX, IFX, PHEP, FKLLC, PE #### [address] [address] [employer]: Bala Skelton MD Platelet mean volume (Bld) [Entitic vol] 9.5 fL Normal 8.1-13.5 [facility] Comment on above: Performed By: #### A NAX, IFX, PHEP, FKLLC, PE #### [address] [address] [employer] Helper: Bala Skelton MD Platelets (Bld) [#/Vol] 311 10*3/uL Normal 138-453 [facility] Comment on above: Performed By: #### A NAX, IFX, PHEP, FKLLC, PE #### [address] [address] [employer] Helper: Bala Skelton MD RBC (Bld) [#/Vol] 3.45 10*6/uL Low 3.95-5.11 [facility] Comment on above: Performed By: #### A NAX, IFX, PHEP, FKLLC, PE #### [facility] [address] [place], [place] [phone] [employer] Helper: Bala Skelton MD WBC (Bld) [#/Vol] 8.3 10*3/uL Normal 3.5-11.3 [facility] Comment on above: Performed By: #### A NAX, IFX, PHEP, FKLLC, PE #### [facility] [address] [place], [place] [phone] [employer] Helper: Bala Skelton MD IR GUIDED NEPHROURETERAL CAT H REMOVE/REPLACEon 07-26-2022 1. Successful left nephroureteral stent exchange. [facility] Bishnu Wright MD - 07/26/2022 PROCEDURE: IR [...] detailed explanation of the procedure including risks. [place] protocol was observed. Sterile gowns, masks, hats and gloves utilized for maximal sterile barrier. The patient was placed in the prone position on the fluoroscopy table, and the existing left nephroureteral stent and flank were prepped and draped in sterile manner. The stent tubing was noted to be broken with the lumen exposed near the level of the skin. A cow washer image demonstrated the distal loop approximating the [...] wire. Under fluoroscopic guidance, a new 8 Irish x 22 cm nephroureteral stent was advanced over the wire; the distal loop formed in the bladder, but the proximal loop did not form in the renal pelvis. Therefore, this catheter was removed over wire, and a new 8 Irish x 24 cm nephroureteral stent was advanced [...] IMPRESSION: 1. Successful left nephroureteral stent exchange. [employer] Work Phone: Radiology Study observation (narrative) [employer] Phone: IR GUIDED NEPHROURETERAL CAT H REMOVE/REPLACEOrdered By: Bishnu Alan on 07-26-2022 [facility] Work Phone: No Panel Informationon 07-26 [facility] [employer] POC Glucose Fingerstickon Glucose [Mass/Vol] 185 mg/dL High 65 - 105 mg/dL [facility] Interpretation and review of laboratory results Abnormal [facility] [employer] PTon 07-26-2022 INR Coag (PPP) [Relative time] 0.9 {INR} Normal [facility] Comment on above: Result Comment: Therapeutic Range: Moderate Anticoagulant Intensity: INR = 2.0-3.0 High Anticoagulant Intensity: INR = 2.5-3.5 Performed By: #### A NAX, IFX, PHEP, FKLLC, PE #### [facility] [address] [place] [id number] [employer] Helper: Bala Skelton MD PT Coag (PPP) [Time] 9.4 s Normal 9.1-12.3 [facility] Comment on above: Performed By: #### A NAX, IFX, PHEP, FKLLC, PE #### [facility] [address] [place] [phone] [employer] Helper: Bala Skelton MD Protime-INRon 07-26-2022 INR Coag (Bld) [Relative time] 0.9 {INR} [facility] Comment on above: Therapeutic Range: Moderate Anticoagulant Intensity: INR = 2.0-3.0 High Anticoagulant Intensity: INR = 2.5-3.5 PT Coag (PPP) [Time] 9.4 s [facility] Cult, Bloodon 07-25-2022 Cult, Blood Specimen Description .BLOOD Special Requests LEFT FOREARM 5ML Culture NO GROWTH 5 DAYS Report Status FINAL 07/25/2022 [facility] Comment on above: Performed By: #### B C #### [address] [phone] [employer] Helper: Bala Skelton MD Cult,Bloodon 07-25-2022 Cult,Blood Specimen Description .BLOOD Special Requests LT WRIST 2.5ML Culture NO GROWTH 5 DAYS Report Status FINAL 07/25/2022 [facility] Comment on above: Performed By: #### B C #### [address] [address] [employer] Helper: Bala Skelton MD Cult,Blood Specimen Description .BLOOD Special Requests RT WRIST 2.5ML Culture NO GROWTH 5 DAYS Report Status FINAL 07/25/2022 [facility] Comment on above: Performed By: #### A NAX, IFX, PHEP, FKLLC, PE #### [address] [address] [employer] Helper: Bala Skelton MD Cult,Blood Specimen Description .BLOOD Special Requests 2ML Culture NO GROWTH 5 DAYS Report Status FINAL 07/25/2022 [facility] Comment on above: Performed By: #### A NAX, IFX, PHEP, FKLLC, PE #### [address] [address] [employer] Helper: Bala Skelton MD XR ABDOMEN (KUB) (SINGLE [...] Bry Foreman MD 07/25/22 Final result Normal [facility] Left PCNU in place. There is questionable discontinuity of the retroperitoneal or body wall portion of the catheter. This may be artifactual related to bowel gas. Recommend repeat exam or CT. [facility] RIS CONSOLIDATED EXAMINATION: ONE SUPINE XRAY VIEW(S) [...] of the catheter. No gross bony abnormality. [facility] RIS CONSOLIDATED Bry Foreman MD - 07/25/2022 [...] bowel gas. Recommend repeat exam or CT. [facility] [employer] Phone: Radiology Study observation (narrative) [facility] [employer] Phone: XR ABDOMEN (KUB) (SINGLE AP VIEW)Ordered By: Bry Foreman on 07-25-2022 [facility] [employer] Phone: Cult,Bloodon 07-23-2022 Cult,Blood Specimen Description .BLOOD Special Requests R FOREARM 10 ML Culture NO GROWTH 5 DAYS Report Status FINAL 07/23/2022 Normal [facility] Comment on above: Performed By: #### A NAX, IFX, PHEP, FKLLC, PE #### [facility] [address] [place] [phone] [employer] Helper: Bala Skelton MD Cult,Blood Specimen Description .BLOOD Special Requests L WRIST 10 ML Culture NO GROWTH 5 DAYS Report Status FINAL 07/23/2022 Normal [facility] Comment on above: Performed By: #### L ACTIC #### [facility] [address] [place] [phone] [employer] Helper: Bala Skelton MD ALEXANDRE Screen w/reflexon 2021 ALEXANDRE Screen Negative Normal NEG [facility] Comment on above: Performed By: #### A NAX, IFX, PHEP, FKLLC, PE #### [facility] [address] [place] [phone] [employer] Helper: Bala Skelton MD Anti-dsDNA 2.1 IU/mL Normal <10.0 [facility] Comment on above: Result Comment: Reference Range: <10.0 Negative 10.0-15.0 Equivocal >15.0 Positive Performed By: #### A NAX, IFX, PHEP, FKLLC, PE #### [facility] [address] [place] [phone] [employer] Helper: Bala Skelton MD MICKIE Screen 0.1 U/mL Normal <0.7 [facility] Comment on above: Result Comment: Reference Range: <0.7 Negative 0.7-1.0 Equivocal >1.0 Positive MICKIE Screen includes U1RNP,RNP70,Sm,Ro(SS-A),La(SS-B),CENP,Scl-70,Gina-1 Performed By: #### A NAX, IFX, PHEP, FKLLC, PE #### [facility] [address] [place] [address] [employer] Helper: Bala Skelton MD ALEXANDRE Screen with Reflexon Anti ds DNA 2.1 [facility] Comment on above: Reference Range: <10.0 Negative 10.0-15.0 Equivocal >15.0 Positive MICKIE Antibodies Screen 0.1 U/mL [facility] - 0.7 U/mL [facility] Comment on above: Reference Range: <0.7 Negative 0.7-1.0 Equivocal >1.0 Positive MICKIE Screen includes U1RNP,RNP70,Sm,Ro(SS-A),La(SS-B),CENP,Scl-70,Gina-1 Nuclear Ab IF (S) [Titer] Negative NEGATIVE [facility] Basic Metab w/rfx MGon 07-22 (cont.) Normal [facility] Comment on above: Result Comment: Aver age GFR for 50-59 years old: 93 mL/min/1.73sq m Chronic Kidney Disease: <60 mL/min/1.73sq m Kidney failure: <15 mL/min/1.73sq m eGFR calculated using average adult body mass. Additional eGFR calculator available at: http://www.[employer].com/multiple_crcl_2012.htm Performed By: #### A NAX, IFX, PHEP, FKLLC, PE #### [employer] [facility] [place] [address] [employer] Helper: Bala Skelton MD Anion gap [Moles/Vol] 12 mmol/L Normal 9-17 [facility] Comment on above: Performed By: #### A NAX, IFX, PHEP, FKLLC, PE #### [address] [address] [employer] Helper: Bala Skelton MD Calcium [Mass/Vol] 8.5 mg/dL Low 8.6-10.4 [facility] Comment on above: Performed By: #### A NAX, IFX, PHEP, FKLLC, PE #### [address] [address] [employer] Helper: Bala Skelton MD Chloride [Moles/Vol] 101 mmol/L Normal 98-107 [facility] Comment on above: Performed By: #### A NAX, IFX, PHEP, FKLLC, PE #### [address] [address] [employer] Helper: Bala Skelton MD CO2 [Moles/Vol] 25 mmol/L Normal 20-31 [facility] Comment on above: Performed By: #### A NAX, IFX, PHEP, FKLLC, PE #### [address] [address] [employer] Helper: Bala Skelton MD Creatinine [Mass/Vol] 1.06 mg/dL High 0.50-0.90 [facility] Comment on above: Performed By: #### A NAX, IFX, PHEP, FKLLC, PE #### [address] [address] [employer] Helper: Bala Skelton MD GFR, Amer >60 Normal >60 [facility] Comment on above: Performed By: #### A NAX, IFX, PHEP, FKLLC, PE #### [address] [address] [employer] Helper: Bala Skelton MD GFR,non Amer 55 mL/min Low >60 [facility] Comment on above: Performed By: #### A NAX, IFX, PHEP, FKLLC, PE #### [facility] [employer] [address] [place] [phone] [employer] Helper: Bala Skelton MD Glucose [Mass/Vol] 172 mg/dL High 70-99 [facility] Comment on above: Performed By: #### A NAX, IFX, PHEP, FKLLC, PE #### [facility] [employer] [address] [place] [phone] [employer] Helper: Bala Skelton MD Potassium [Moles/Vol] 4.1 mmol/L Normal 3.7-5.3 [facility] Comment on above: Performed By: #### A NAX, IFX, PHEP, FKLLC, PE #### [facility] [address] [place] [phone] [employer] Helper: Bala Skelton MD Sodium [Moles/Vol] 138 mmol/L Normal 135-144 [facility] Comment on above: Performed By: #### A NAX, IFX, PHEP, FKLLC, PE #### [facility] [employer] [address] [place] [phone] [employer] Helper: Bala Skelton MD Urea nitrogen [Mass/Vol] 24 mg/dL High 6-20 [facility] Comment on above: Performed By: #### A NAX, IFX, PHEP, FKLLC, PE #### [facility] [address] [place] [phone] [employer] Helper: Bala Skelton MD Basic Metabolic Panel w/ Ref romulo to MGon 07-22-2022 Anion gap [Moles/Vol] 12 mmol/L 9 - 17 mmol/L [facility] Calcium [Mass/Vol] 8.5 mg/dL Low 8.6 - 10. 4 mg/dL [facility] Chloride [Moles/Vol] 101 mmol/L 98 - 10 7 mmol/L [facility] CO2 [Moles/Vol] 25 mmol/L 20 - 31 mmol/L [facility] Creatinine [Mass/Vol] 1.06 mg/dL High 0.5 - 0.9 mg/dL [facility] GFR >60 60 - PI NF mL/min [facility] GFR Non- 55 mL/min Low 60 - PINF mL/min [facility] GFR/1.73 sq M.predicted MDRD (S/P/Bld) [Vol rate/Area] [facility] Comment on above: Average GFR for 50-5 9 years old: 93 mL/min/1.73sq m Chronic Kidney Disease: <60 mL/min/1.73sq m Kidney failure: <15 mL/min/1.73sq m eGFR calculated using average adult body mass. Additional eGFR calculator available at: http://www.[employer]/multiple_crcl_2012.htm Glucose [Mass/Vol] 172 mg/dL High 70 - 99 mg/dL [facility] Interpretation and review of laboratory results Abnormal [facility] Potassium [Moles/Vol] 4.1 mmol/L 3.7 - 5.3 mmol/L [facility] Sodium [Moles/Vol] 138 mmol/L 135 - 144 mmol/L [facility] Urea nitrogen (BldV) [Mass/Vol] 24 mg/dL High 6 - 20 mg/dL [facility] Electrophoresis Protein, Ser umon 07-22-2022 Albumin % 57 % 45 - 65 % [facility] Albumin [Mass/Vol] 3.6 g/dL 3.2 - 5.2 g/dL [facility] Alpha 1 % 4 % 3 - 6 % [facility] Alpha 2 % 15 % High 6 - 13 % [facility] Wyyub-7-Ddrekhap 0.2 g/dL 0.1 - 0.4 g/dL [facility] Wkiza-6-Duaeinyj 0.9 g/dL 0.5 - 0.9 g/dL [facility] Beta Globulin 0.9 g/dL 0.5 - 1.1 g/dL [facility] Beta Percent 14 % 11 - 19 % [facility] Free PSA/Total PSA [Mass fraction] 6.3 g/dL Low 6.4 - 8.3 g/dL [facility] Gamma Globulin 0.6 g/dL 0.5 - 1.5 g/dL [facility] Gamma Globulin % 10 % 9 - 20 % [facility] Interpretation and review of laboratory results Abnormal [facility] Pathologist Cyto stain Nom (Cvx/Vag) [ID] Reviewed by pathologist: Mary Stovall M.D. [facility] Protein Electrophoresis, Serum NORMAL ELECTROPHORETIC PATTERN [facility] Comment on above: IMMUNOFIXATION IS NE GATIVE FOR MONOCLONAL IMMUNOGLOBULIN. Total Prot. Sum 6.2 g/dL Low 6.3 - 8.2 g/dL [facility] Total Prot. Sum,% 100 % 98 - 102 % [facility] Hepatitis Acute [facility] 07-22 Hep A Ab,IgM Non-Reactive Normal [facility] Comment on above: Performed By: #### A NAX, IFX, PHEP, FKLLC, PE #### [facility] [address] [place] [address] [phone] [employer] Helper: Bala Skelton MD Hep B Core Ab,IgM Non-Reactive Normal [facility] Comment on above: Performed By: #### A NAX, IFX, PHEP, FKLLC, PE #### [facility] [place], [place] [phone] [employer] Helper: Bala Skelton MD Hep B Surf Ag Non-Reactive Normal [facility] Comment on above: Performed By: #### A NAX, IFX, PHEP, FKLLC, PE #### [facility] [address] [place] [address] [phone] [employer] Helper: Bala Skelton MD Hep C Ab Non-Reactive Normal NR [facility] Comment on above: Result Comment: The [...] IFX, PHEP, FKLLC, PE #### [facility] [address] [place] [address] [employer] Helper: Bala Skelton MD Hepatitis Panel, Acuteon HAV IgM IA Qn (S) Non-Reactive NONREACTIVE [facility] Hep B Core Ab, IgM Non-Reactive NONREACTIVE [facility] Hepatitis B Surface Ag Non-Reactive NONREACTIVE [facility] Hepatitis C Ab Non-Reactive NONREACTIVE [facility] Comment on above: The hepatitis C [...] recommended by ordering HCV RNA by PCR. [facility] Immunofixation serum profile on 07-22-2022 Pathologist Cyto stain Nom (Cvx/Vag) [ID] Reviewed by pathologist: Mary Stovall M.D. [facility] Serum IFX Interp IMMUNOFIXATION IS NEGATIVE FOR MONOCLONAL IMMUNOGLOBULIN. [facility] Immunofixation urine random profileon 07-22-2022 Protein (U) [Mass/Vol] 144 mg/dL [facility] Urine IFX Interp IMMUNOFIXATION IS NEGATIVE FOR MONOCLONAL IMMUNOGLOBULIN. [facility] Urine IFX Specimen .URINE [facility] Immunofixation,Bloodon 07-22 IFX - Interpret. IMMUNOFIXATION IS NEGATIVE FOR MONOCLONAL IMMUNOGLOBULIN. Normal [facility] Comment on above: Performed By: #### A NAX, IFX, PHEP, FKLLC, PE #### [facility] [employer] [address] [place] [address] [phone] [employer]per: Bala Skelton MD Pathologist Review: Reviewed by pathologist: Mary Stovall M.D. [facility] Comment on above: Performed By: #### A NAX, IFX, PHEP, FKLLC, PE #### [facility] [address] [place] [address] [phone] [employer] Helper: Bala Skelton MD Immunofixation,Urineon 07-22 Ur. IFX-Interpret IMMUNOFIXATION IS NEGATIVE FOR MONOCLONAL IMMUNOGLOBULIN. [facility] Comment on above: Performed By: #### A NAX, IFX, PHEP, FKLLC, PE #### [facility] [employer] [address] [place] [address] [phone] [employer] Helper: Bala Skelton MD Lactic Acidon 07-22-2022 Lactic Acid,Whole Bl 1.9 mmol/L Normal 0.7-2.1 [facility] Comment on above: Performed By: #### A NAX, IFX, PHEP, FKLLC, PE #### [facility] [address] [place] [address] [phone] [employer] Helper: Bala Skelton MD Lactic Acid, Whole Blood 1.9 mmol/L 0.7 - 2.1 mmol/L [facility] Lactic Acid,Whole Bl 2.3 mmol/L High 0.7-2.1 [facility] Comment on above: Performed By: #### L ACTIC #### [facility] [employer] [address] [place] [address] [phone] [employer] Helper: Bala Skelton MD Interpretation and review of laboratory results Abnormal [facility] Lactic Acid, Whole Blood 2.3 mmol/L High 0.7 - 2.1 mmol/L [facility] POC Glucose Fingerstickon Glucose [Mass/Vol] 164 mg/dL High 65 - 105 mg/dL [facility] Interpretation and review of laboratory results Abnormal [facility] Glucose [Mass/Vol] 177 mg/dL High 65 - 105 mg/dL [facility] Interpretation and review of laboratory results Abnormal [facility] Prot. Electroph, Blon 2021 Pathologist Review: Reviewed by pathologist: Mary Stovall M.D. [facility] Comment on above: Performed By: #### A NAX, IFX, PHEP, FKLLC, PE #### [address] [address] [employer]: Bala Skelton MD Prot. Elect-Interp NORMAL ELECTROPHORET IC PATTERN Normal [facility] Comment on above: Result Comment: IMMU NOFIXATION IS NEGATIVE FOR MONOCLONAL IMMUNOGLOBULIN. Performed By: #### A NAX, IFX, PHEP, FKLLC, PE #### [address] [address] [employer]: Bala Skelton MD Total Prot. Sum 6.2 g/dL Low 6.3-8.2 [facility] Comment on above: Performed By: #### A NAX, IFX, PHEP, FKLLC, PE #### [address] [address] [employer]: Bala Skelton MD Total Prot. Sum,% 100 % Normal 98-102 [facility] Comment on above: Performed By: #### A NAX, IFX, PHEP, FKLLC, PE #### [address] [address] [employer]: Bala Skelton MD Prot. Electrophoresis, Uron 07-22-2022 Pathologist Review: Reviewed by pathologist: Mary Stovall M.D. [facility] Comment on above: Performed By: #### A NAX, IFX, PHEP, FKLLC, PE #### [facility] [address] [place], [place] [phone] [employer]: Bala Skelton MD Ur.-Prot.Elect-Inter ELEVATED PROTEIN CONCENTRATION. MOST SERUM PROTEINS ARE DETECTED IN THIS URINE. Normal [facility] Comment on above: Result Comment: USUA LLY OBSERVED WITH MARKEDLY INCREASED NON-SELECTIVE GLOMERULAR PERMEABILITY (i.e. SEVERE GLOMERULAR DISEASE), CONTAMINATION OF URINE WITH BLOOD, OR A COMBINATION OF THESE. A DECREASE IN TUBULAR FUNCTION CANNOT BE RULED OUT. IMMUNOFIXATION IS NEGATIVE FOR MONOCLONAL IMMUNOGLOBULIN. Performed By: #### A NAX, IFX, PHEP, FKLLC, PE #### [facility] [address] [place] [address] [employer]: Bala Skelton MD Protein Electrophoresis, Uri neon 07-22-2022 P E Interpretation, U ELEVATED PROTEIN CONCENTRATION. MOST SERUM PROTEINS ARE DETECTED IN THIS URINE. USUALLY OBSERVED WITH MARKEDLY INCREASED NON-SELECTIVE GLOMERULAR PERMEABILITY (i.e. SEVERE GLOMERULAR DISEASE), CONTAMINATION OF [facility] Comment on above: URINE WITH BLOOD, OR A COMBINATION OF THESE. A DECREASE IN TUBULAR FUNCTION CANNOT BE RULED OUT. IMMUNOFIXATION IS NEGATIVE FOR MONOCLONAL IMMUNOGLOBULIN. Pathologist Reviewed by pathologist: Mary Stovall M.D. [employer] Protein (U) [Mass/Vol] 144 mg/dL [facility] Specimen Type .URINE [facility] Basic Metab w/rfx MGon 07-21 (cont.) Normal [facility] Comment on above: Result Comment: Aver age GFR for 50-59 years old: 93 mL/min/1.73sq m Chronic Kidney Disease: <60 mL/min/1.73sq m Kidney failure: <15 mL/min/1.73sq m eGFR calculated using average adult body mass. Additional eGFR calculator available at: http://www.[employer]/multiple_crcl_2012.htm Performed By: #### A NAX, IFX, PHEP, FKLLC, PE #### [address] [address] [employer]: Bala Skelton MD Anion gap [Moles/Vol] 12 mmol/L Normal 9-17 [facility] Comment on above: Performed By: #### A NAX, IFX, PHEP, FKLLC, PE #### [address] [address] [employer]: Bala Skelton MD Calcium [Mass/Vol] 8.3 mg/dL Low 8.6-10.4 [facility] Comment on above: Performed By: #### A NAX, IFX, PHEP, FKLLC, PE #### [address] [address] [employer]: Bala Skelton MD Chloride [Moles/Vol] 101 mmol/L Normal 98-107 [facility] Comment on above: Performed By: #### A NAX, IFX, PHEP, FKLLC, PE #### [address] [address] [employer]: Bala Skelton MD CO2 [Moles/Vol] 23 mmol/L Normal 20-31 [facility] Comment on above: Performed By: #### A NAX, IFX, PHEP, FKLLC, PE #### [address] [address] [employer]: Bala Skelton MD Creatinine [Mass/Vol] 1.00 mg/dL High 0.50-0.90 [facility] Comment on above: Performed By: #### A NAX, IFX, PHEP, FKLLC, PE #### [address] [address] [employer]: Bala Skelton MD GFR, Amer >60 Normal >60 [facility] Comment on above: Performed By: #### A NAX, IFX, PHEP, FKLLC, PE #### [facility] [employer] [address] [place] [phone] [employer]per: Bala Skelton MD GFR,non Amer 59 mL/min Low >60 [facility] Comment on above: Performed By: #### A NAX, IFX, PHEP, FKLLC, PE #### [facility] [employer] [address] [place] [phone] [employer]: Bala Skelton MD Glucose [Mass/Vol] 157 mg/dL High 70-99 [facility] Comment on above: Performed By: #### A NAX, IFX, PHEP, FKLLC, PE #### [facility] [employer] [address] [place] [phone] [employer]: Bala Skelton MD Potassium [Moles/Vol] 3.7 mmol/L Normal 3.7-5.3 [facility] Comment on above: Performed By: #### A NAX, IFX, PHEP, FKLLC, PE #### [address] [address] [employer]: Bala Skelton MD Sodium [Moles/Vol] 136 mmol/L Normal 135-144 [facility] Comment on above: Performed By: #### A NAX, IFX, PHEP, FKLLC, PE #### [facility] [employer] [address] [place] [phone] [employer]: Bala Skelton MD Urea nitrogen [Mass/Vol] 26 mg/dL High 6-20 [facility] Comment on above: Performed By: #### A NAX, IFX, PHEP, FKLLC, PE #### [facility] [employer] [address] [place] [phone] [employer]: Bala Skelton MD (cont.) Normal [facility] Comment on above: Result Comment: Aver age GFR for 50-59 years old: 93 mL/min/1.73sq m Chronic Kidney Disease: <60 mL/min/1.73sq m Kidney failure: <15 mL/min/1.73sq m eGFR calculated using average adult body mass. Additional eGFR calculator available at: http://www.[employer]/multiple_crcl_2012.htm Performed By: #### B C #### [facility] [employer] [address] [place] [phone] [employer]: Bala Skelton MD Anion gap [Moles/Vol] 13 mmol/L Normal 9-17 [facility] Comment on above: Performed By: #### B C #### [address] [address] [employer]: Bala Skelton MD Calcium [Mass/Vol] 8.1 mg/dL Low 8.6-10.4 [facility] Comment on above: Performed By: #### B C #### [facility] [address] [place] [phone] [employer]: Bala Skelton MD Chloride [Moles/Vol] 101 mmol/L Normal 98-107 [facility] Comment on above: Performed By: #### B C #### [facility] [address] [place] [address] [employer] Helper: Bala Skelton MD CO2 [Moles/Vol] 20 mmol/L Normal 20-31 [facility] Comment on above: Performed By: #### B C #### [facility] [address] [place] [phone] [employer] Helper: Bala Skelton MD Creatinine [Mass/Vol] 1.28 mg/dL High 0.50-0.90 [facility] Comment on above: Performed By: #### B C #### [address] [address] [employer] Helper: Bala Skelton MD GFR, Amer 54 mL/min Low >60 [facility] Comment on above: Performed By: #### B C #### [address] [address] [employer]per: Bala Skelton MD GFR,non Amer 44 mL/min Low >60 [facility] Comment on above: Performed By: #### B C #### [address] [address] [employer] Helper: Bala Skelton MD Glucose [Mass/Vol] 224 mg/dL High 70-99 [facility] Comment on above: Performed By: #### B C #### [address] [address] [employer]per: Bala Skelton MD Potassium [Moles/Vol] 3.8 mmol/L Normal 3.7-5.3 [facility] Comment on above: Performed By: #### B C #### [address] [address] [employer]per: Bala Skelton MD Sodium [Moles/Vol] 134 mmol/L Low 135-144 [facility] Comment on above: Performed By: #### B C #### [address] [address] [employer]per: Bala Skelton MD Urea nitrogen [Mass/Vol] 28 mg/dL High 6-20 [facility] Comment on above: Performed By: #### B C #### [address] [address] [employer] Helper: Bala Skelton MD Anion gap [Moles/Vol] 13 mmol/L Normal 9-17 [facility] Comment on above: Performed By: #### A NAX, IFX, PHEP, FKLLC, PE #### [address] [place] [address] [employer]: Bala Skelton MD Sodium [Moles/Vol] 131 mmol/L Low 135-144 [facility] Comment on above: Performed By: #### A NAX, IFX, PHEP, FKLLC, PE #### [facility] [address] [place] [address] [employer] Helper: Bala Skelton MD (cont.) Normal [facility] Comment on above: Result Comment: Aver age GFR for 50-59 years old: 93 mL/min/1.73sq m Chronic Kidney Disease: <60 mL/min/1.73sq m Kidney failure: <15 mL/min/1.73sq m eGFR calculated using average adult body mass. Additional eGFR calculator available at: http://www.[employer]/multiple_crcl_2012.htm Performed By: #### A NAX, IFX, PHEP, FKLLC, PE #### [facility] [address] [place] [address] [employer] Helper: Bala Skelton MD Calcium [Mass/Vol] 8.4 mg/dL Low 8.6-10.4 [facility] Comment on above: Performed By: #### A NAX, IFX, PHEP, FKLLC, PE #### [facility] [address] [place] [phone] [employer] Helper: Bala Skelton MD Chloride [Moles/Vol] 100 mmol/L Normal 98-107 [facility] Comment on above: Performed By: #### A NAX, IFX, PHEP, FKLLC, PE #### [facility] [address] [place] [address] [employer] Helper: Bala Skelton MD CO2 [Moles/Vol] 18 mmol/L Low 20-31 [facility] Comment on above: Performed By: #### A NAX, IFX, PHEP, FKLLC, PE #### [facility] [address] [place] [address] [employer] Helper: Bala Skelton MD Creatinine [Mass/Vol] 1.37 mg/dL High 0.50-0.90 [facility] Comment on above: Performed By: #### A NAX, IFX, PHEP, FKLLC, PE #### [facility] [address] [place] [phone] [employer] Helper: Bala Skelton MD GFR, Amer 49 mL/min Low >60 [facility] Comment on above: Performed By: #### A NAX, IFX, PHEP, FKLLC, PE #### [facility] [address] [place] [address] [employer] Helper: Bala Skelton MD GFR,non Amer 41 mL/min Low >60 [facility] Comment on above: Performed By: #### A NAX, IFX, PHEP, FKLLC, PE #### [facility] [address] [place] [address] [employer] Helper: Bala Skelton MD Glucose [Mass/Vol] 184 mg/dL High 70-99 [facility] Comment on above: Performed By: #### A NAX, IFX, PHEP, FKLLC, PE #### [address] [address] [employer]: Bala Skelton MD Potassium [Moles/Vol] 3.8 mmol/L Normal 3.7-5.3 [facility] Comment on above: Performed By: #### A NAX, IFX, PHEP, FKLLC, PE #### [facility] [address] [place] [phone] [employer] Helper: Bala Skelton MD Urea nitrogen [Mass/Vol] 27 mg/dL High 6-20 [facility] Comment on above: Performed By: #### A NAX, IFX, PHEP, FKLLC, PE #### [facility] [address] [place] [address] [employer] Helper: Bala Skelton MD Basic Metabolic Panel w/ Ref romulo to MGon 07-21-2022 Anion gap [Moles/Vol] 12 mmol/L 9 - 17 mmol/L [facility] Calcium [Mass/Vol] 8.3 mg/dL Low 8.6 - 10. 4 mg/dL [facility] Chloride [Moles/Vol] 101 mmol/L 98 - 10 7 mmol/L [facility] CO2 [Moles/Vol] 23 mmol/L 20 - 31 mmol/L [facility] Creatinine [Mass/Vol] 1 mg/dL High 0.5 - 0.9 mg/dL [facility] GFR >60 60 - PI NF mL/min [facility] GFR Non- 59 mL/min Low 60 - PINF mL/min [facility] GFR/1.73 sq M.predicted MDRD (S/P/Bld) [Vol rate/Area] [facility] Comment on above: Average GFR for 50-5 9 years old: 93 mL/min/1.73sq m Chronic Kidney Disease: <60 mL/min/1.73sq m Kidney failure: <15 mL/min/1.73sq m eGFR calculated using average adult body mass. Additional eGFR calculator available at: http://www.[employer]/multiple_crcl_2012.htm Glucose [Mass/Vol] 157 mg/dL High 70 - 99 mg/dL [facility] Interpretation and review of laboratory results Abnormal [facility] Potassium [Moles/Vol] 3.7 mmol/L 3.7 - 5.3 mmol/L [facility] Sodium [Moles/Vol] 136 mmol/L 135 - 144 mmol/L [facility] [employer] [facility] Urea nitrogen (BldV) [Mass/Vol] 26 mg/dL High 6 - 20 mg/dL [facility] Anion gap [Moles/Vol] 13 mmol/L 9 - 17 mmol/L [facility] Calcium [Mass/Vol] 8.1 mg/dL Low 8.6 - 10. 4 mg/dL [facility] Chloride [Moles/Vol] 101 mmol/L 98 - 10 7 mmol/L [facility] CO2 [Moles/Vol] 20 mmol/L 20 - 31 mmol/L [facility] Creatinine [Mass/Vol] 1.28 mg/dL High 0.5 - 0.9 mg/dL [facility] GFR 54 mL/min Low 60 - PI NF mL/min [facility] GFR Non- 44 mL/min Low 60 - PINF mL/min [facility] GFR/1.73 sq M.predicted MDRD (S/P/Bld) [Vol rate/Area] [facility] Comment on above: Average GFR for 50-5 9 years old: 93 mL/min/1.73sq m Chronic Kidney Disease: <60 mL/min/1.73sq m Kidney failure: <15 mL/min/1.73sq m eGFR calculated using average adult body mass. Additional eGFR calculator available at: http://www.[employer]/multiple_crcl_2012.htm Glucose [Mass/Vol] 224 mg/dL High 70 - 99 mg/dL [facility] Interpretation and review of laboratory results Abnormal [facility] Potassium [Moles/Vol] 3.8 mmol/L 3.7 - 5.3 mmol/L [facility] Sodium [Moles/Vol] 134 mmol/L Low 135 - 144 mmol/L [facility] Urea nitrogen (BldV) [Mass/Vol] 28 mg/dL High 6 - 20 mg/dL [facility] Immunofixation,Urineon 07-21 Protein (U) [Mass/Vol] 144 mg/dL Normal [facility] Comment on above: Performed By: #### A NAX, IFX, PHEP, FKLLC, PE #### [facility] [place] [address] [employer] Helper: Bala Skelton MD Type of Specimen .URINE Normal [facility] Comment on above: Performed By: #### A NAX, IFX, PHEP, FKLLC, PE #### [facility] [address] [place] [address] [phone] [employer] Helper: Bala Skelton MD Lactic Acidon 07-21-2022 Lactic Acid,Whole Bl 2.5 mmol/L High 0.7-2.1 [facility] Comment on above: Performed By: #### A NAX, IFX, PHEP, FKLLC, PE #### [facility] [address] [place] [address] [phone] [employer] Helper: Bala Skelton MD Interpretation and review of laboratory results Abnormal [facility] Lactic Acid, Whole Blood 2.5 mmol/L High 0.7 - 2.1 mmol/L [facility] Lactic Acid,Whole Bl 1.9 mmol/L Normal 0.7-2.1 [facility] Comment on above: Performed By: #### L ACTIC #### [facility] [address] [place] [address] [phone] [employer] Helper: Bala Skelton MD Lactic Acid, Whole Blood 1.9 mmol/L 0.7 - 2.1 mmol/L [facility] Lactic Acid,Whole Bl 3.0 mmol/L High 0.7-2.1 [facility] Comment on above: Performed By: #### A NAX, IFX, PHEP, FKLLC, PE #### [facility] [address] [place] [address] [phone] [employer] Helper: Bala Skelton MD Interpretation and review of laboratory results Abnormal [facility] Lactic Acid, Whole Blood 3.0 mmol/L High 0.7 - 2.1 mmol/L [facility] Lactic Acid,Whole Bl 2.2 mmol/L High 0.7-2.1 [facility] Comment on above: Performed By: #### A NAX, IFX, PHEP, FKLLC, PE #### [employer] [facility] [place], [place] [phone] [employer] Helper: Bala Skelton MD Interpretation and review of laboratory results Abnormal [facility] Lactic Acid, Whole Blood 2.2 mmol/L High 0.7 - 2.1 mmol/L [facility] Glucose Fingerstickon Glucose [Mass/Vol] 210 mg/dL High 65 - 105 mg/dL [facility] Interpretation and review of laboratory results Abnormal [facility] Glucose [Mass/Vol] 142 mg/dL High 65 - 105 mg/dL [facility] Interpretation and review of laboratory results Abnormal [facility] Glucose [Mass/Vol] 227 mg/dL High 65 - 105 mg/dL [facility] Interpretation and review of laboratory results Abnormal [facility] Glucose [Mass/Vol] 219 mg/dL High 65 - 105 mg/dL [facility] Interpretation and review of laboratory results Abnormal [facility] Prot. Electroph, Blon 2021 Albumin [Mass/Vol] 3.6 g/dL Normal 3.2-5.2 [facility] Comment on above: Performed By: #### A NAX, IFX, PHEP, FKLLC, PE #### [facility] [address] [place] [address] [phone] [employer]per: Bala Sketlon MD Albumin, % 57 % Normal 45-65 [facility] Comment on above: Performed By: #### A NAX, IFX, PHEP, FKLLC, PE #### [facility] [address] [place] [address] [phone] [employer] Helper: Bala Skelton MD Bplgr-5-imuubavnf 0.2 g/dL Normal 0.1-0.4 [facility] Comment on above: Performed By: #### A NAX, IFX, PHEP, FKLLC, PE #### [facility] [address] [place] [address] [employer] Helper: Bala Skelton MD Rmyha-4-majsjcxwh,% 4 % Normal 3-6 [facility] Comment on above: Performed By: #### A NAX, IFX, PHEP, FKLLC, PE #### [facility] [address] [place] [address] [phone] [employer] Helper: Bala Skelton MD Qsmel-8-ymeoxjrjy 0.9 g/dL Normal 0.5-0.9 [facility] Comment on above: Performed By: #### A NAX, IFX, PHEP, FKLLC, PE #### [address] [address] [employer] Helper: Bala Skelton MD Qnunw-9-tkopbybjr,% 15 % High 6-13 [facility] Comment on above: Performed By: #### A NAX, IFX, PHEP, FKLLC, PE #### [address] [address] [employer] Helper: Bala Skelton MD Beta-globulins 0.9 g/dL Normal 0.5-1.1 [facility] Comment on above: Performed By: #### A NAX, IFX, PHEP, FKLLC, PE #### [facility] [address] [place] [phone] [employer] Helper: Bala Skelton MD Beta-globulins,% 14 % Normal 11-19 [facility] Comment on above: Performed By: #### A NAX, IFX, PHEP, FKLLC, PE #### [address] [address] [employer] Helper: Bala Skelton MD Gamma-globulins 0.6 g/dL Normal 0.5-1.5 [facility] Comment on above: Performed By: #### A NAX, IFX, PHEP, FKLLC, PE #### [facility] [address] [place], [place] [phone] [employer] Helper: Bala Skelton MD Gamma-globulins,% 10 % Normal - [facility] Comment on above: Performed By: #### A NAX, IFX, PHEP, FKLLC, PE #### [facility] [address] [place], [place] [phone] [employer] Helper: Bala Skelton MD Prot. Electrophoresis, Uron 07-21-2022 Total Protein Conc. 144 mg/dL Normal [facility] Comment on above: Performed By: #### A NAX, IFX, PHEP, FKLLC, PE #### [facility] [place], [place] [phone] [employer] Helper: Bala Skelton MD BLOOD GAS, VENOUSon 07-20-20 22 Carboxyhemoglobin 1.4 % 0 - 5 % P21 Comment on above: Reference Range: Non-Smokers 0-2% Average Smoker 2-4% Heavy Smoker <10% FIO2 INFORMATION NOT PROVIDED [facility] HCO3 (Bld) [Moles/Vol] 19.6 mmol/L Low 24 - 30 mmol/L [facility] Interpretation and review of laboratory results Abnormal [facility] Negative Base Excess, Olaf 5.6 mmol/L High 0 - 2 mmol/L [facility] Oxygen saturation in Blood 74.4 % 60 - 85 % [facility] pCO2, Olaf 39.5 39 - 55 [facility] pH, Olaf 7.316 Low 7.32 - 7.42 [facility] pO2, Olaf 36.9 30 - 50 [facility] Pt Temp 37.0 [facility] Basic Metab w/rfx MGon 07-20 (cont.) Normal [facility] Comment on above: Result Comment: Aver age GFR for 50-59 years old: 93 mL/min/1.73sq m Chronic Kidney Disease: <60 mL/min/1.73sq m Kidney failure: <15 mL/min/1.73sq m eGFR calculated using average adult body mass. Additional eGFR calculator available at: http://www.[employer]/multiple_crcl_2012.htm Performed By: #### A NAX, IFX, PHEP, FKLLC, PE #### [facility] [address] [place] [phone] [employer] Helper: Bala Skelton MD Anion gap [Moles/Vol] 13 mmol/L Normal 9-17 [facility] Comment on above: Performed By: #### A NAX, IFX, PHEP, FKLLC, PE #### [address] [address] [employer]per: Bala Skelton MD Calcium [Mass/Vol] 8.7 mg/dL Normal 8.6-10.4 [facility] Comment on above: Performed By: #### A NAX, IFX, PHEP, FKLLC, PE #### [address] [address] [employer]per: Bala Skelton MD Chloride [Moles/Vol] 97 mmol/L Low 98-107 [facility] Comment on above: Performed By: #### A NAX, IFX, PHEP, FKLLC, PE #### [facility] [address] [place] [phone] [employer] Helper: Bala Skelton MD CO2 [Moles/Vol] 18 mmol/L Low 20-31 [facility] Comment on above: Performed By: #### A NAX, IFX, PHEP, FKLLC, PE #### [facility] [address] [place] [phone] [employer] Helper: Bala Skelton MD Creatinine [Mass/Vol] 1.62 mg/dL High 0.50-0.90 [facility] Comment on above: Performed By: #### A NAX, IFX, PHEP, FKLLC, PE #### [facility] [address] [place] [phone] [employer] Helper: Bala Skelton MD GFR, Amer 41 mL/min Low >60 [facility] Comment on above: Performed By: #### A NAX, IFX, PHEP, FKLLC, PE #### [facility] [address] [place] [phone] [employer] Helper: Bala Skelton MD GFR,non Amer 34 mL/min Low >60 [facility] Comment on above: Performed By: #### A NAX, IFX, PHEP, FKLLC, PE #### [address] [address] [employer]per: Bala Skelton MD Glucose [Mass/Vol] 360 mg/dL High 70-99 [facility] Comment on above: Performed By: #### A NAX, IFX, PHEP, FKLLC, PE #### [address] [address] [employer]: Bala Skelton MD Potassium [Moles/Vol] 5.1 mmol/L Normal 3.7-5.3 [facility] Comment on above: Performed By: #### A NAX, IFX, PHEP, FKLLC, PE #### [address] [address] [employer]: Bala Skelton MD Sodium [Moles/Vol] 128 mmol/L Low 135-144 [facility] Comment on above: Performed By: #### A NAX, IFX, PHEP, FKLLC, PE #### [facility] [address] [place] [address] [employer] Helper: Bala Skelton MD Urea nitrogen [Mass/Vol] 32 mg/dL High 6-20 [facility] Comment on above: Performed By: #### A NAX, IFX, PHEP, FKLLC, PE #### [facility] [address] [place] [address] [employer] Helper: Bala Skelton MD (cont.) [facility] Comment on above: Result Comment: Aver age GFR for 50-59 years old: 93 mL/min/1.73sq m Chronic Kidney Disease: <60 mL/min/1.73sq m Kidney failure: <15 mL/min/1.73sq m eGFR calculated using average adult body mass. Additional eGFR calculator available at: http://www.[employer]/multiple_crcl_2011.htm Performed By: #### A NAX, IFX, PHEP, FKLLC, PE #### [address] [address] [employer]: Bala Skelton MD Anion gap [Moles/Vol] 14 mmol/L Normal 9-17 [facility] Comment on above: Performed By: #### A NAX, IFX, PHEP, FKLLC, PE #### [facility] [address] [place] [phone] [employer] Helper: Bala Skelton MD Calcium [Mass/Vol] 8.2 mg/dL Low 8.6-10.4 [facility] Comment on above: Performed By: #### A NAX, IFX, PHEP, FKLLC, PE #### [facility] [address] [place] [phone] [employer] Helper: Bala Skelton MD Chloride [Moles/Vol] 96 mmol/L Low 98-107 [facility] Comment on above: Performed By: #### A NAX, IFX, PHEP, FKLLC, PE #### [facility] [address] [place] [phone] [employer]per: Bala Skelton MD CO2 [Moles/Vol] 17 mmol/L Low 20-31 [facility] Comment on above: Performed By: #### A NAX, IFX, PHEP, FKLLC, PE #### [facility] [address] [place] [address] [employer]per: Bala Skelton MD Creatinine [Mass/Vol] 1.68 mg/dL High 0.50-0.90 [facility] Comment on above: Performed By: #### A NAX, IFX, PHEP, FKLLC, PE #### [address] [address] [employer]: Bala Skelton MD GFR, Amer 39 mL/min Low >60 [facility] Comment on above: Performed By: #### A NAX, IFX, PHEP, FKLLC, PE #### [address] [address] [employer]: Bala Skelton MD GFR,non Amer 32 mL/min Low >60 [facility] Comment on above: Performed By: #### A NAX, IFX, PHEP, FKLLC, PE #### [facility] [address] [place] [phone] [employer]per: Bala Skelton MD Potassium [Moles/Vol] 4.4 mmol/L Normal 3.7-5.3 [facility] Comment on above: Performed By: #### A NAX, IFX, PHEP, FKLLC, PE #### [facility] [address] [place] [address] [employer] Helper: Bala Skelton MD Sodium [Moles/Vol] 127 mmol/L Low 135-144 [facility] Comment on above: Performed By: #### A NAX, IFX, PHEP, FKLLC, PE #### [facility] [address] [place] [address] [phone] [employer]per: Bala Skelton MD Urea nitrogen [Mass/Vol] 33 mg/dL High 6-20 [facility] Comment on above: Performed By: #### A NAX, IFX, PHEP, FKLLC, PE #### [address] [address] [employer]: Bala Skelton MD Glucose [Mass/Vol] 427 mg/dL Critically high 70-99 [facility] Comment on above: Performed By: #### A NAX, IFX, PHEP, FKLLC, PE #### [address] [address] [employer]: Bala Skelton MD Glucose [Mass/Vol] 416 mg/dL Critically high 70-99 [facility] Comment on above: Performed By: #### A NAX, IFX, PHEP, FKLLC, PE #### [address] [id number] [employer] Helper: Bala Skelton MD (cont.) [facility] Comment on above: Result Comment: Aver age GFR for 50-59 years old: 93 mL/min/1.73sq m Chronic Kidney Disease: <60 mL/min/1.73sq m Kidney failure: <15 mL/min/1.73sq m eGFR calculated using average adult body mass. Additional eGFR calculator available at: http://www.[employer]/multiple_crcl_2012.htm Performed By: #### A NAX, IFX, PHEP, FKLLC, PE #### [address] [address] [employer]: Bala Skelton MD Anion gap [Moles/Vol] 15 mmol/L Normal 9-17 [facility] Comment on above: Performed By: #### A NAX, IFX, PHEP, FKLLC, PE #### [address] [address] [employer]: Bala Skelton MD Calcium [Mass/Vol] 8.5 mg/dL Low 8.6-10.4 [facility] Comment on above: Performed By: #### A NAX, IFX, PHEP, FKLLC, PE #### [address] [address] [employer]: Bala Skelton MD Chloride [Moles/Vol] 95 mmol/L Low 98-107 [facility] Comment on above: Performed By: #### A NAX, IFX, PHEP, FKLLC, PE #### [address] [address] [employer]: Bala Skelton MD CO2 [Moles/Vol] 18 mmol/L Low 20-31 [facility] Comment on above: Performed By: #### A NAX, IFX, PHEP, FKLLC, PE #### [address] [address] [employer]: Bala Skelton MD Creatinine [Mass/Vol] 2.11 mg/dL High 0.50-0.90 [facility] Comment on above: Performed By: #### A NAX, IFX, PHEP, FKLLC, PE #### [address] [address] [employer]: Bala Skelton MD GFR, Amer 30 mL/min Low >60 [facility] Comment on above: Performed By: #### A NAX, IFX, PHEP, FKLLC, PE #### [address] [address] [employer]: Bala Skelton MD GFR,non Amer 25 mL/min Low >60 [facility] Comment on above: Performed By: #### A NAX, IFX, PHEP, FKLLC, PE #### [facility] [address] [place] [address] [employer]: Bala Skelton MD Potassium [Moles/Vol] 5.0 mmol/L Normal 3.7-5.3 [facility] Comment on above: Performed By: #### A NAX, IFX, PHEP, FKLLC, PE #### [facility] [address] [place] [address] [employer]: Bala Skelton MD Sodium [Moles/Vol] 128 mmol/L Low 135-144 [facility] Comment on above: Performed By: #### A NAX, IFX, PHEP, FKLLC, PE #### [facility] [address] [place] [address] [employer]: Bala Skelton MD Urea nitrogen [Mass/Vol] 38 mg/dL High 6-20 [facility] Comment on above: Performed By: #### A NAX, IFX, PHEP, FKLLC, PE #### [facility] [address] [place] [address] [employer]: Bala Skelton MD Basic Metabolic Panel 07-07 Anion gap [Moles/Vol] 16 mmol/L 9 - 17 mmol/L [facility] Calcium [Mass/Vol] 8.2 mg/dL Low 8.6 - 10. 4 mg/dL [facility] Chloride [Moles/Vol] 95 mmol/L Low 98 - 10 7 mmol/L [facility] CO2 [Moles/Vol] 17 mmol/L Low 20 - 31 mmol/L [facility] Creatinine [Mass/Vol] 2.35 mg/dL High 0.5 - 0.9 mg/dL [facility] GFR 27 mL/min Low 60 - PI NF mL/min [facility] GFR Non- 22 mL/min Low 60 - PINF mL/min [facility] GFR/1.73 sq M.predicted MDRD (S/P/Bld) [Vol rate/Area] [facility] [facility]ENTERTrulioo[facility] Comment on above: Average GFR for 50-5 9 years old: 93 mL/min/1.73sq m Chronic Kidney Disease: <60 mL/min/1.73sq m Kidney failure: <15 mL/min/1.73sq m eGFR calculated using average adult body mass. Additional eGFR calculator available at: http://www.[employer]/multiple_crcl_2012.htm Glucose [Mass/Vol] 439 mg/dL Critically high 70 - 99 mg/d L [facility] Automatic Agency Interpretation and review of laboratory results Abnormal [facility] Potassium [Moles/Vol] 5.2 mmol/L 3.7 - 5.3 mmol/L [facility] Sodium [Moles/Vol] 128 mmol/L Low 135 - 144 mmol/L [facility] Automatic Agency Urea nitrogen (BldV) [Mass/Vol] 37 mg/dL High 6 - 20 mg/dL [facility] Basic Metabolic Panel w/ Ref romulo to MGon 07-20-2022 Anion gap [Moles/Vol] 13 mmol/L 9 - 17 mmol/L [facility] Calcium [Mass/Vol] 8.4 mg/dL Low 8.6 - 10. 4 mg/dL [facility] Chloride [Moles/Vol] 100 mmol/L 98 - 10 7 mmol/L [facility] Automatic Agency CO2 [Moles/Vol] 18 mmol/L Low 20 - 31 mmol/L [facility] Creatinine [Mass/Vol] 1.37 mg/dL High 0.5 - 0.9 mg/dL [facility] GFR 49 mL/min Low 60 - PI NF mL/min [facility] GFR Non- 41 mL/min Low 60 - PINF mL/min [facility] Automatic Agency GFR/1.73 sq M.predicted MDRD (S/P/Bld) [Vol rate/Area] [facility]ENTERMang[facility] Comment on above: Average GFR for 50-5 9 years old: 93 mL/min/1.73sq m Chronic Kidney Disease: <60 mL/min/1.73sq m Kidney failure: <15 mL/min/1.73sq m eGFR calculated using average adult body mass. Additional eGFR calculator available at: http://www.[employer]/Sendia_crcl_2012.htm Glucose [Mass/Vol] 184 mg/dL High 70 - 99 mg/dL [facility] Automatic Agency Interpretation and review of laboratory results Abnormal [facility] Automatic Agency Potassium [Moles/Vol] 3.8 mmol/L 3.7 - 5.3 mmol/L [facility] Automatic Agency Sodium [Moles/Vol] 131 mmol/L Low 135 - 144 mmol/L [facility] Automatic Agency Urea nitrogen (BldV) [Mass/Vol] 27 mg/dL High 6 - 20 mg/dL [facility] Automatic Agency [facility] Anion gap [Moles/Vol] 13 mmol/L 9 - 17 mmol/L [facility] Automatic Agency Calcium [Mass/Vol] 8.7 mg/dL 8.6 - 10. 4 mg/dL [facility] Automatic Agency Chloride [Moles/Vol] 97 mmol/L Low 98 - 10 7 mmol/L [facility] Automatic Agency CO2 [Moles/Vol] 18 mmol/L Low 20 - 31 mmol/L [facility] Creatinine [Mass/Vol] 1.62 mg/dL High 0.5 - 0.9 mg/dL [facility] Automatic Agency GFR 41 mL/min Low 60 - PI NF mL/min [facility] Automatic Agency GFR Non- 34 mL/min Low 60 - PINF mL/min [facility] Automatic Agency GFR/1.73 sq M.predicted MDRD (S/P/Bld) [Vol rate/Area] [facility] Comment on above: Average GFR for 50-5 9 years old: 93 mL/min/1.73sq m Chronic Kidney Disease: <60 mL/min/1.73sq m Kidney failure: <15 mL/min/1.73sq m eGFR calculated using average adult body mass. Additional eGFR calculator available at: http://www.[employer]/multiple_crcl_2012.htm Glucose [Mass/Vol] 360 mg/dL High 70 - 99 mg/dL [facility]ENTER[facility] Automatic Agency Potassium [Moles/Vol] 5.1 mmol/L 3.7 - 5.3 mmol/L [facility] Sodium [Moles/Vol] 128 mmol/L Low 135 - 144 mmol/L [facility] Urea nitrogen (BldV) [Mass/Vol] 32 mg/dL High 6 - 20 mg/dL [facility] Anion gap [Moles/Vol] 14 mmol/L 9 - 17 mmol/L [facility] Calcium [Mass/Vol] 8.2 mg/dL Low 8.6 - 10. 4 mg/dL [facility] Chloride [Moles/Vol] 96 mmol/L Low 98 - 10 7 mmol/L [facility] CO2 [Moles/Vol] 17 mmol/L Low 20 - 31 mmol/L [facility] Creatinine [Mass/Vol] 1.68 mg/dL High 0.5 - 0.9 mg/dL [facility] GFR 39 mL/min Low 60 - PI NF mL/min [facility] GFR Non- 32 mL/min Low 60 - PINF mL/min [facility] GFR/1.73 sq M.predicted MDRD (S/P/Bld) [Vol rate/Area] [facility] Comment on above: Average GFR for 50-5 9 years old: 93 mL/min/1.73sq m Chronic Kidney Disease: <60 mL/min/1.73sq m Kidney failure: <15 mL/min/1.73sq m eGFR calculated using average adult body mass. Additional eGFR calculator available at: http://www.[employer]/multiple_crcl_2011.htm Interpretation and review of laboratory results Abnormal [facility] Potassium [Moles/Vol] 4.4 mmol/L 3.7 - 5.3 mmol/L [facility] Sodium [Moles/Vol] 127 mmol/L Low 135 - 144 mmol/L [facility] Urea nitrogen (BldV) [Mass/Vol] 33 mg/dL High 6 - 20 mg/dL [facility] Anion gap [Moles/Vol] 15 mmol/L 9 - 17 mmol/L [facility] Calcium [Mass/Vol] 8.5 mg/dL Low 8.6 - 10. 4 mg/dL [facility] Chloride [Moles/Vol] 95 mmol/L Low 98 - 10 7 mmol/L [facility] CO2 [Moles/Vol] 18 mmol/L Low 20 - 31 mmol/L [facility] Creatinine [Mass/Vol] 2.11 mg/dL High 0.5 - 0.9 mg/dL [facility] GFR 30 mL/min Low 60 - PI NF mL/min [facility] GFR Non- 25 mL/min Low 60 - PINF mL/min [facility] GFR/1.73 sq M.predicted MDRD (S/P/Bld) [Vol rate/Area] [facility] Comment on above: Average GFR for 50-5 9 years old: 93 mL/min/1.73sq m Chronic Kidney Disease: <60 mL/min/1.73sq m Kidney failure: <15 mL/min/1.73sq m eGFR calculated using average adult body mass. Additional eGFR calculator available at: http://www.[employer]/multiple_crcl_2012.htm Glucose [Mass/Vol] 416 mg/dL Critically high 70 - 99 mg/d L [facility] Interpretation and review of laboratory results Abnormal [facility] Potassium [Moles/Vol] 5.0 mmol/L 3.7 - 5.3 mmol/L [facility] Sodium [Moles/Vol] 128 mmol/L Low 135 - 144 mmol/L [facility] Urea nitrogen (BldV) [Mass/Vol] 38 mg/dL High 6 - 20 mg/dL [facility] Basic Metabolic Profon 07-20 Glucose [Mass/Vol] 439 mg/dL Critically high 70-99 M [facility] Comment on above: Performed By: #### A NAX, IFX, PHEP, FKLLC, PE #### [facility] [place], [place] [id number] [employer] Helper: Bala Skelton MD (cont.) [facility] Comment on above: Result Comment: Aver age GFR for 50-59 years old: 93 mL/min/1.73sq m Chronic Kidney Disease: <60 mL/min/1.73sq m Kidney failure: <15 mL/min/1.73sq m eGFR calculated using average adult body mass. Additional eGFR calculator available at: http://www.[employer]/multiple_crcl_2012.htm Performed By: #### A NAX, IFX, PHEP, FKLLC, PE #### [facility] [address] [place] [phone] [employer] Helper: Bala Skelton MD Anion gap [Moles/Vol] 16 mmol/L Normal 9-17 [facility] Comment on above: Performed By: #### A NAX, IFX, PHEP, FKLLC, PE #### [facility] [address] [place] [phone] [employer] Helper: Bala Skelton MD Calcium [Mass/Vol] 8.2 mg/dL Low 8.6-10.4 [facility] Comment on above: Performed By: #### A NAX, IFX, PHEP, FKLLC, PE #### [employer] [address] [place] [phone] [employer] Helper: Bala Skelton MD Chloride [Moles/Vol] 95 mmol/L Low 98-107 [facility] Comment on above: Performed By: #### A NAX, IFX, PHEP, FKLLC, PE #### [employer] [address] [place] [phone] [employer] Helper: Bala Skelton MD CO2 [Moles/Vol] 17 mmol/L Low 20-31 [facility] Comment on above: Performed By: #### A NAX, IFX, PHEP, FKLLC, PE #### [employer] [address] [place] [address] [phone] [employer] Helper: Bala Skelton MD Creatinine [Mass/Vol] 2.35 mg/dL High 0.50-0.90 [facility] Comment on above: Performed By: #### A NAX, IFX, PHEP, FKLLC, PE #### [facility] [address] [place] [phone] [employer] Helper: Bala Skelton MD GFR, Amer 27 mL/min Low >60 [facility] Comment on above: Performed By: #### A NAX, IFX, PHEP, FKLLC, PE #### [facility] [address] [place] [phone] [employer] Helper: Bala Skelton MD GFR,non Amer 22 mL/min Low >60 [facility] Comment on above: Performed By: #### A NAX, IFX, PHEP, FKLLC, PE #### [facility] [address] [place] [phone] [employer] Helper: Bala Skelton MD Potassium [Moles/Vol] 5.2 mmol/L Normal 3.7-5.3 [facility] Comment on above: Performed By: #### A NAX, IFX, PHEP, FKLLC, PE #### [facility] [employer] [address] [place] [phone] [employer] Helper: Bala Skelton MD Sodium [Moles/Vol] 128 mmol/L Low 135-144 [facility] Comment on above: Performed By: #### A NAX, IFX, PHEP, FKLLC, PE #### [facility] [address] [place] [phone] [employer] Helper: Bala Skelton MD Urea nitrogen [Mass/Vol] 37 mg/dL High 6-20 [facility] Comment on above: Performed By: #### A NAX, IFX, PHEP, FKLLC, PE #### [facility] [address] [place] [address] [phone] [employer] Helper: Bala Skelton MD C3on 07-20-2022 C3 209 mg/dL High 90-180 [facility] Comment on above: Performed By: #### A NAX, IFX, PHEP, FKLLC, PE #### [facility] [address] [place], [place] [phone] [employer] Helper: Bala Skelton MD C3 Complementon 07-20-2022 Complement C3 209 mg/dL High 90 - 180 mg/dL [facility] C4on 07-20-2022 C4 41 mg/dL High 10-40 [facility] Comment on above: Performed By: #### A NAX, IFX, PHEP, FKLLC, PE #### [facility] [address] [place], [place] [phone] [employer] Helper: Bala Skelton MD C4 Complementon 07-20-2022 Complement C4 41 mg/dL High 10 - 40 mg/dL [facility] CBC with Auto Differentialon 07-20-2022 Absolute Eos # 0.00 [facility] Absolute Immature Granulocyte 0.07 [facility] Absolute Lymph # 0.46 Low [facility] Absolute Dickey # 0.33 [facility] Basophils (Bld) [#/Vol] 0.00 10*3/uL [facility] Basophils/100 WBC (Bld) 0 % 0 - 2 % [facility] Eosinophils/100 WBC (Bld) 0 % Low 1 - 4 % [facility] Hematocrit (Bld) [Volume fraction] 33.3 % Low 36.3 - 47.1 % [facility] Hemoglobin (Bld) [Mass/Vol] 11.0 g/dL Low 11.9 - 15.1 g/dL [facility] Immature granulocytes/100 WBC (Bld) 1 % High 0 [facility] Interpretation and review of laboratory results Abnormal [facility] Lymphocytes/100 WBC (Bld) 7 % Low 24 - 44 % [facility] MCH (RBC) [Entitic mass] 28.6 pg 25.2 - 33.5 pg [facility] MCHC (RBC) [Mass/Vol] 33.0 g/dL 28.4 - 34.8 g/dL [facility] MCV (RBC) [Entitic vol] 86.7 fL 82.6 - 102.9 fL [facility] Monocytes/100 WBC (Bld) 5 % 1 - 7 % [facility] Morphology Bran (Bld) [Interp] Normal [facility] NRBC Automated 0.0 0.0 per 100 WBC [facility] Platelet distribution width (Bld) [Ratio] 13.8 % 11.8 - 14.4 % [facility] Platelets (Bld) [#/Vol] See Reflexed IPF Result [facility] RBC (Bld) [#/Vol] 3.84 10*6/uL Low 3.95 - 5.1 1 m/uL [facility] Segmented neutrophils/100 WBC (Bld) 87 % High 36 - 66 % [facility] Segs Absolute 5.74 [facility] WBC (Bld) [#/Vol] 6.6 10*3/uL [facility] Absolute Eos # 0.00 [facility] Absolute Immature Granulocyte 0.10 [facility] Absolute Lymph # 0.31 Low [facility] Absolute Dickey # 0.41 [facility] Basophils (Bld) [#/Vol] 0.00 10*3/uL [facility] Basophils/100 WBC (Bld) 0 % 0 - 2 % [facility] Eosinophils/100 WBC (Bld) 0 % Low 1 - 4 % [facility] Hematocrit (Bld) [Volume fraction] 32.4 % Low 36.3 - 47.1 % [facility] Hemoglobin (Bld) [Mass/Vol] 11.0 g/dL Low 11.9 - 15.1 g/dL [facility] Immature granulocytes/100 WBC (Bld) 1 % High 0 [facility] Interpretation and review of laboratory results Abnormal [facility] Lymphocytes/100 WBC (Bld) 3 % Low 24 - 44 % [facility] MCH (RBC) [Entitic mass] 29.4 pg 25.2 - 33.5 pg [facility] MCHC (RBC) [Mass/Vol] 34.0 g/dL 28.4 - 34.8 g/dL [facility] MCV (RBC) [Entitic vol] 86.6 fL 82.6 - 102.9 fL [facility] Monocytes/100 WBC (Bld) 4 % 1 - 7 % [facility] Morphology Bran (Bld) [Interp] Normal [facility] NRBC Automated 0.0 0.0 per 100 WBC [facility] Platelet distribution width (Bld) [Ratio] 13.6 % 11.8 - 14.4 % [facility] Platelet mean volume (Bld) [Entitic vol] 10.4 fL 8.1 - 13.5 fL [facility] Platelets (Bld) [#/Vol] 252 10*3/uL [facility] RBC (Bld) [#/Vol] 3.74 10*6/uL Low 3.95 - 5.1 1 m/uL [facility] Segmented neutrophils/100 WBC (Bld) 92 % High 36 - 66 % [facility] Segs Absolute 9.38 High [facility] WBC (Bld) [#/Vol] 10.2 10*3/uL [facility] Absolute Eos # 0.12 [facility] Absolute Immature Granulocyte 0.12 [facility] Absolute Lymph # 0.49 Low [facility] Absolute Dickey # 0.00 Low [facility] Basophils (Bld) [#/Vol] 0.00 10*3/uL [facility] Basophils/100 WBC (Bld) 0 % 0 - 2 % [facility] Eosinophils/100 WBC (Bld) 1 % 1 - 4 % [facility] Hematocrit (Bld) [Volume fraction] 31.3 % Low 36.3 - 47.1 % [facility] Hemoglobin (Bld) [Mass/Vol] 10.6 g/dL Low 11.9 - 15.1 g/dL [facility] Immature granulocytes/100 WBC (Bld) 1 % High 0 [facility] Interpretation and review of laboratory results Abnormal [facility] Lymphocytes/100 WBC (Bld) 4 % Low 24 - 44 % [facility] MCH (RBC) [Entitic mass] 29.3 pg 25.2 - 33.5 pg [facility] MCHC (RBC) [Mass/Vol] 33.9 g/dL 28.4 - 34.8 g/dL [facility] MCV (RBC) [Entitic vol] 86.5 fL 82.6 - 102.9 fL [facility] Monocytes/100 WBC (Bld) 0 % Low 1 - 7 % [facility] Morphology Bran (Bld) [Interp] Normal [facility] NRBC Automated 0.0 0.0 per 100 WBC [facility] Platelet distribution width (Bld) [Ratio] 13.5 % 11.8 - 14.4 % [facility] Platelet mean volume (Bld) [Entitic vol] 10.2 fL 8.1 - 13.5 fL [facility] Platelets (Bld) [#/Vol] 280 10*3/uL [facility] RBC (Bld) [#/Vol] 3.62 10*6/uL Low 3.95 - 5.1 1 m/uL [facility] Segmented neutrophils/100 WBC (Bld) 94 % High 36 - 66 % [facility] Segs Absolute 11.57 High [facility] WBC (Bld) [#/Vol] 12.3 10*3/uL High [facility] CBC with Diffon 07-20-2022 Abs. Basophil 0.00 k/uL Normal 0.0-0.2 [facility] Comment on above: Performed By: #### A NAX, IFX, PHEP, FKLLC, PE #### [facility] [employer] [facility] [place] [address] [employer] Helper: Bala Skelton MD Abs.Imm.Granulocyte 0.07 k/uL Normal 0.00-0.30 [facility] Comment on above: Performed By: #### A NAX, IFX, PHEP, FKLLC, PE #### [address] [address] [employer] Helper: Bala Skelton MD Abs.Neutrophil (Seg) 5.74 k/uL Normal 1.8-7.7 [facility] Comment on above: Performed By: #### A NAX, IFX, PHEP, FKLLC, PE #### [address] [address] [employer] Helper: Bala Skelton MD Basophils/100 WBC (Bld) 0 % Normal 0-2 [facility] Comment on above: Performed By: #### A NAX, IFX, PHEP, FKLLC, PE #### [place] [address] [employer] Helper: Bala Skelton MD Eosinophils (Bld) [#/Vol] 0.00 10*3/uL Normal 0.0-0.4 [facility] Comment on above: Performed By: #### A NAX, IFX, PHEP, FKLLC, PE #### [address] [address] [employer] Helper: Bala Skelton MD Eosinophils/100 WBC (Bld) 0 % Low 1-4 [facility] Comment on above: Performed By: #### A NAX, IFX, PHEP, FKLLC, PE #### [address] [address] [employer] Helper: Bala Skelton MD Immature granulocytes/100 WBC (Bld) 1 % High 0 [facility] Comment on above: Performed By: #### A NAX, IFX, PHEP, FKLLC, PE #### [address] [address] [employer] Helper: Bala Skelton MD Lymphocytes (Bld) [#/Vol] 0.46 10*3/uL Low 1.0-4.8 [facility] Comment on above: Performed By: #### A NAX, IFX, PHEP, FKLLC, PE #### [address] [address] [employer] Helper: Bala Skelton MD Lymphocytes/100 WBC (Bld) 7 % Low 24-44 [facility] Comment on above: Performed By: #### A NAX, IFX, PHEP, FKLLC, PE #### [address] [address] [employer] Helper: Bala Skelton MD Monocytes (Bld) [#/Vol] 0.33 10*3/uL Normal 0.1-0.8 [facility] Comment on above: Performed By: #### A NAX, IFX, PHEP, FKLLC, PE #### [address] [address] [employer] Helper: Bala Skelton MD Monocytes/100 WBC (Bld) 5 % Normal 1-7 [facility] Comment on above: Performed By: #### A NAX, IFX, PHEP, FKLLC, PE #### [address] [address] [employer] Helper: Bala Skelton MD Morphology Bran (Bld) [Interp] Normal Normal [facility] Comment on above: Performed By: #### A NAX, IFX, PHEP, FKLLC, PE #### [address] [address] [employer] Helper: Bala Skelton MD Neutrophil (Seg) 87 % High 36-66 [facility] Comment on above: Performed By: #### A NAX, IFX, PHEP, FKLLC, PE #### [address] [address] [employer]: Bala Skelton MD Erythrocyte distribution width (RBC) [Ratio] 13.8 % Normal 11.8-14.4 [facility] Comment on above: Performed By: #### A NAX, IFX, PHEP, FKLLC, PE #### [address] [address] [employer]: Bala Skelton MD Hematocrit (Bld) [Volume fraction] 33.3 % Low 36.3-47.1 [facility] Comment on above: Performed By: #### A NAX, IFX, PHEP, FKLLC, PE #### [address] [address] [employer]: Bala Skelton MD Hemoglobin (Bld) [Mass/Vol] 11.0 g/dL Low 11.9-15.1 [facility] Comment on above: Performed By: #### A NAX, IFX, PHEP, FKLLC, PE #### [address] [address] [employer]: Bala Skelton MD MCH (RBC) [Entitic mass] 28.6 pg Normal 25.2-33.5 [facility] Comment on above: Performed By: #### A NAX, IFX, PHEP, FKLLC, PE #### [address] [address] [employer]: Bala Skelton MD MCHC (RBC) [Mass/Vol] 33.0 g/dL Normal 28.4-34.8 [facility] Comment on above: Performed By: #### A NAX, IFX, PHEP, FKLLC, PE #### [address] [address] [employer]: Bala Skelton MD MCV (RBC) [Entitic vol] 86.7 fL Normal 82.6-102.9 [facility] Comment on above: Performed By: #### A NAX, IFX, PHEP, FKLLC, PE #### [address] [address] [employer]per: Bala Skelton MD NRBC Automated 0.0 per 100 WBC Normal 0.0 [facility] Comment on above: Performed By: #### A NAX, IFX, PHEP, FKLLC, PE #### [address] [address] [employer]per: Bala Skelton MD Platelet Count See Reflexed IPF Result Normal 138-453 [facility] Comment on above: Performed By: #### A NAX, IFX, PHEP, FKLLC, PE #### [address] [address] [employer]: Bala Skelton MD RBC (Bld) [#/Vol] 3.84 10*6/uL Low 3.95-5.11 [facility] Comment on above: Performed By: #### A NAX, IFX, PHEP, FKLLC, PE #### [address] [address] [employer]: Bala Skelton MD WBC (Bld) [#/Vol] 6.6 10*3/uL Normal 3.5-11.3 [facility] Comment on above: Performed By: #### A NAX, IFX, PHEP, FKLLC, PE #### [address] [address] [employer]: Bala Skelton MD Abs. Basophil 0.00 k/uL Normal 0.0-0.2 [facility] Comment on above: Performed By: #### A NAX, IFX, PHEP, FKLLC, PE #### [address] [address] [employer]: Bala Skelton MD Abs.Imm.Granulocyte 0.10 k/uL Normal 0.00-0.30 [facility] Comment on above: Performed By: #### A NAX, IFX, PHEP, FKLLC, PE #### [place] [address] [employer]: Bala Skelton MD Abs.Neutrophil (Seg) 9.38 k/uL High 1.8-7.7 [facility] Comment on above: Performed By: #### A NAX, IFX, PHEP, FKLLC, PE #### [place] [address] [employer]: Bala Skelton MD Basophils/100 WBC (Bld) 0 % Normal 0-2 [facility] Comment on above: Performed By: #### A NAX, IFX, PHEP, FKLLC, PE #### [place] [address] [employer]: Bala Skelton MD Eosinophils (Bld) [#/Vol] 0.00 10*3/uL Normal 0.0-0.4 [facility] Comment on above: Performed By: #### A NAX, IFX, PHEP, FKLLC, PE #### [address] [address] [employer]: Bala Skelton MD Eosinophils/100 WBC (Bld) 0 % Low 1-4 [facility] Comment on above: Performed By: #### A NAX, IFX, PHEP, FKLLC, PE #### [address] [address] [employer]: Bala Skelton MD Immature granulocytes/100 WBC (Bld) 1 % High 0 [facility] Comment on above: Performed By: #### A NAX, IFX, PHEP, FKLLC, PE #### [address] [address] [employer]: Bala Skelton MD Lymphocytes (Bld) [#/Vol] 0.31 10*3/uL Low 1.0-4.8 [facility] Comment on above: Performed By: #### A NAX, IFX, PHEP, FKLLC, PE #### [address] [address] [employer]: Bala Skelton MD Lymphocytes/100 WBC (Bld) 3 % Low 24-44 [facility] Comment on above: Performed By: #### A NAX, IFX, PHEP, FKLLC, PE #### [address] [address] [employer]: Bala Skelton MD Monocytes (Bld) [#/Vol] 0.41 10*3/uL Normal 0.1-0.8 [facility] Comment on above: Performed By: #### A NAX, IFX, PHEP, FKLLC, PE #### [address] [address] [employer]: Bala Skelton MD Monocytes/100 WBC (Bld) 4 % Normal 1-7 [facility] Comment on above: Performed By: #### A NAX, IFX, PHEP, FKLLC, PE #### [address] [address] [employer]per: Bala Skelton MD Morphology Bran (Bld) [Interp] Normal Normal [facility] Comment on above: Performed By: #### A NAX, IFX, PHEP, FKLLC, PE #### [address] [address] [employer] Helper: Bala Skelton MD Neutrophil (Seg) 92 % High 36-66 [facility] Comment on above: Performed By: #### A NAX, IFX, PHEP, FKLLC, PE #### [facility] [employer] [address] [place] [phone] [employer]per: Bala Skelton MD Erythrocyte distribution width (RBC) [Ratio] 13.6 % Normal 11.8-14.4 [facility] Comment on above: Performed By: #### A NAX, IFX, PHEP, FKLLC, PE #### [facility] [employer] [address] [place] [phone] [employer]per: Bala Skelton MD Hematocrit (Bld) [Volume fraction] 32.4 % Low 36.3-47.1 [facility] Comment on above: Performed By: #### A NAX, IFX, PHEP, FKLLC, PE #### [facility] [employer] [address] [place] [address] [employer] Helper: Bala Skelton MD Hemoglobin (Bld) [Mass/Vol] 11.0 g/dL Low 11.9-15.1 [facility] Comment on above: Performed By: #### A NAX, IFX, PHEP, FKLLC, PE #### [facility] [employer] [address] [place] [address] [employer] Helper: Bala Skelton MD MCH (RBC) [Entitic mass] 29.4 pg Normal 25.2-33.5 [facility] Comment on above: Performed By: #### A NAX, IFX, PHEP, FKLLC, PE #### [facility] [employer] [address] [place] [phone] [employer]per: Bala Skelton MD MCHC (RBC) [Mass/Vol] 34.0 g/dL Normal 28.4-34.8 [facility] Comment on above: Performed By: #### A NAX, IFX, PHEP, FKLLC, PE #### [address] [address] [employer] Helper: Bala Skelton MD MCV (RBC) [Entitic vol] 86.6 fL Normal 82.6-102.9 [facility] Comment on above: Performed By: #### A NAX, IFX, PHEP, FKLLC, PE #### [address] [address] [employer]: Bala Skelton MD NRBC Automated 0.0 per 100 WBC Normal 0.0 [facility] Comment on above: Performed By: #### A NAX, IFX, PHEP, FKLLC, PE #### [address] [address] [employer]per: Bala Skelton MD Platelet mean volume (Bld) [Entitic vol] 10.4 fL Normal 8.1-13.5 [facility] Comment on above: Performed By: #### A NAX, IFX, PHEP, FKLLC, PE #### [address] [address] [employer]per: Bala Skelton MD Platelets (Bld) [#/Vol] 252 10*3/uL Normal 138-453 [facility] Comment on above: Performed By: #### A NAX, IFX, PHEP, FKLLC, PE #### [address] [address] [employer]: Bala Skelton MD RBC (Bld) [#/Vol] 3.74 10*6/uL Low 3.95-5.11 [facility] Comment on above: Performed By: #### A NAX, IFX, PHEP, FKLLC, PE #### [address] [address] [employer]: Bala Skelton MD WBC (Bld) [#/Vol] 10.2 10*3/uL Normal 3.5-11.3 [facility] Comment on above: Performed By: #### A NAX, IFX, PHEP, FKLLC, PE #### [address] [address] [employer]: Bala Skelton MD Abs. Basophil 0.00 k/uL Normal 0.0-0.2 [facility] Comment on above: Performed By: #### A NAX, IFX, PHEP, FKLLC, PE #### [place] [address] [employer]: Bala Skelton MD Abs.Imm.Granulocyte 0.12 k/uL Normal 0.00-0.30 [facility] Comment on above: Performed By: #### A NAX, IFX, PHEP, FKLLC, PE #### [place] [address] [employer]: Bala Skelton MD Abs.Neutrophil (Seg) 11.57 k/uL High 1.8-7.7 [facility] Comment on above: Performed By: #### A NAX, IFX, PHEP, FKLLC, PE #### [place] [address] [employer]per: Bala Skelton MD Basophils/100 WBC (Bld) 0 % Normal 0-2 [facility] Comment on above: Performed By: #### A NAX, IFX, PHEP, FKLLC, PE #### [address] [address] [employer]per: Bala Skelton MD Eosinophils (Bld) [#/Vol] 0.12 10*3/uL Normal 0.0-0.4 [facility] Comment on above: Performed By: #### A NAX, IFX, PHEP, FKLLC, PE #### [address] [address] [employer]per: Bala Skelton MD Eosinophils/100 WBC (Bld) 1 % Normal 1-4 [facility] Comment on above: Performed By: #### A NAX, IFX, PHEP, FKLLC, PE #### [address] [address] [employer]per: Bala Skelton MD Immature granulocytes/100 WBC (Bld) 1 % High 0 [facility] Comment on above: Performed By: #### A NAX, IFX, PHEP, FKLLC, PE #### [address] [address] [employer]: Bala Skelton MD Lymphocytes (Bld) [#/Vol] 0.49 10*3/uL Low 1.0-4.8 [facility] Comment on above: Performed By: #### A NAX, IFX, PHEP, FKLLC, PE #### [address] [address] [employer]: Bala Skelton MD Lymphocytes/100 WBC (Bld) 4 % Low 24-44 [facility] Comment on above: Performed By: #### A NAX, IFX, PHEP, FKLLC, PE #### [address] [address] [employer]: Bala Skelton MD Monocytes (Bld) [#/Vol] 0.00 10*3/uL Low 0.1-0.8 [facility] Comment on above: Performed By: #### A NAX, IFX, PHEP, FKLLC, PE #### [address] [address] [employer]: Bala Skelton MD Monocytes/100 WBC (Bld) 0 % Low 1-7 [facility] Comment on above: Performed By: #### A NAX, IFX, PHEP, FKLLC, PE #### [address] [address] [employer]: Bala Skelton MD Morphology Bran (Bld) [Interp] Normal Normal [facility] Comment on above: Performed By: #### A NAX, IFX, PHEP, FKLLC, PE #### [address] [address] [employer]per: Bala Skelton MD Neutrophil (Seg) 94 % High 36-66 [facility] Comment on above: Performed By: #### A NAX, IFX, PHEP, FKLLC, PE #### [address] [address] [employer]per: Bala Skelton MD Erythrocyte distribution width (RBC) [Ratio] 13.5 % Normal 11.8-14.4 [facility] Comment on above: Performed By: #### A NAX, IFX, PHEP, FKLLC, PE #### [address] [address] [employer]: Bala Skelton MD Hematocrit (Bld) [Volume fraction] 31.3 % Low 36.3-47.1 [facility] Comment on above: Performed By: #### A NAX, IFX, PHEP, FKLLC, PE #### [address] [address] [employer]: Bala Skelton MD Hemoglobin (Bld) [Mass/Vol] 10.6 g/dL Low 11.9-15.1 [facility] Comment on above: Performed By: #### A NAX, IFX, PHEP, FKLLC, PE #### [address] [address] [employer]per: Bala Skelton MD MCH (RBC) [Entitic mass] 29.3 pg Normal 25.2-33.5 [facility] Comment on above: Performed By: #### A NAX, IFX, PHEP, FKLLC, PE #### [address] [address] [employer]: Bala Skelton MD MCHC (RBC) [Mass/Vol] 33.9 g/dL Normal 28.4-34.8 [facility] Comment on above: Performed By: #### A NAX, IFX, PHEP, FKLLC, PE #### [place] [address] [employer]per: Bala Skelton MD MCV (RBC) [Entitic vol] 86.5 fL Normal 82.6-102.9 [facility] Comment on above: Performed By: #### A NAX, IFX, PHEP, FKLLC, PE #### [place] [address] [employer]per: Bala Skelton MD NRBC Automated 0.0 per 100 WBC Normal 0.0 [facility] Comment on above: Performed By: #### A NAX, IFX, PHEP, FKLLC, PE #### [place] [address] [employer]per: Bala Skelton MD Platelet mean volume (Bld) [Entitic vol] 10.2 fL Normal 8.1-13.5 [facility] Comment on above: Performed By: #### A NAX, IFX, PHEP, FKLLC, PE #### [address] [address] [employer]per: Bala Skelton MD Platelets (Bld) [#/Vol] 280 10*3/uL Normal 138-453 [facility] Comment on above: Performed By: #### A NAX, IFX, PHEP, FKLLC, PE #### [facility] [address] [place], [place] [phone] [employer]per: Bala Skelton MD RBC (Bld) [#/Vol] 3.62 10*6/uL Low 3.95-5.11 [facility] Comment on above: Performed By: #### A NAX, IFX, PHEP, FKLLC, PE #### [facility] [address] [place], [place] [phone] [employer]per: Bala Skelton MD WBC (Bld) [#/Vol] 12.3 10*3/uL High 3.5-11.3 [facility] Comment on above: Performed By: #### A NAX, IFX, PHEP, FKLLC, PE #### [facility] [address] [place], [place] [phone] [employer]per: Bala Skelton MD CREATININE, RANDOM URINEon 0 07-20-2022 Creatinine, Ur 67.5 mg/dL 28 - 217 mg/dL [facility] CULTURE URINEon 07-20-2022 CULTURE URINE [...] F Trimethoprim/Sulfameth oxazole <=20 S F Normal [facility] Comment on above: Performed By: #### U MICRO, ERUR #### [facility] [address] [place] [address] Dr. Delmer Rea Chloride, Random Urineon Chloride, Ur 50 mmol/L [employer] Comment on above: No normal range esta blished. Chloride,Random Uron 07-20- 022 Chloride [Moles/Vol] 50 mmol/L Normal [facility] Comment on above: Result Comment: No n ormal range established. Performed By: #### A NAX, IFX, PHEP, FKLLC, PE #### [facility] [address] [place], [place] [phone] [employer] Helper: Bala Skelton MD Creatinine, Random Urineon 0 07-20-2022 Creatinine, Ur 76.5 mg/dL 28 - 217 mg/dL [facility] Creatinine,Random Uron 07-20 Creatinine [Mass/Vol] 67.5 mg/dL Normal 28.0-217.0 [facility] Comment on above: Performed By: #### B C #### [facility] [address] [place] [address] [phone] [employer] Helper: Bala Skelton MD Creatinine [Mass/Vol] 76.5 mg/dL Normal 28.0-217.0 [facility] Comment on above: Performed By: #### A NAX, IFX, PHEP, FKLLC, PE #### [facility] [place], [place] [phone] [employer] Helper: Bala Skelton MD EKG 12 LeadOrdered By: Cheryl Domínguez on 07-20-2022 Atrial Rate 105 BPM [employer] Work Phone: P Pruden 8 degrees [employer] Work Phone: P-R Interval 136 ms [employer] Phone: Q-T Interval 344 ms [employer] Phone: QRS Duration 84 ms [employer] Phone: QTc Calculation (Bazett) 454 ms [employer] Work Phone: R Pruden -15 degrees [employer] Work Phone: T Pruden 13 degrees JAYDEN GARCÍA [employer] Phone: Ventricular Rate 105 BPM JAYDEN ONOFRE [employer] Work Phone: JAYDEN GARCÍA [employer] Phone: EKG 12 Leadon 07-20-2022 Sinus tachycardia Septal infarct (cited on or before 20-JUL-2022) Abnormal ECG When compared with ECG of 20-JUL-2022 05:40, No significant change was found [facility] Julien Jarrett MD - 07/20/2022 Sinus tachycardia Septal infarct (cited on or before 20-JUL-2022) Abnormal ECG When compared with ECG of 20-JUL-2022 05:40, No significant change was found [employer] Phone: Free [place] + Lambdaon 2021 Free [place] Lt Chains 2.91 mg/dL High 0.37-1.94 [facility] Comment on above: Performed By: #### A NAX, IFX, PHEP, FKLLC, PE #### [facility] [address] [place] [address] [employer] Helper: Bala Skelton MD Free [place]/Lambda Rat 1.67 High 0.26-1.65 [facility] Comment on above: Performed By: #### A NAX, IFX, PHEP, FKLLC, PE #### [facility] [address] [place] [address] [phone] [employer] Helper: Bala Skelton MD Free [place]ambda Lt Chains 1.74 mg/dL Normal 0.57-2.63 [facility] Comment on above: Performed By: #### A NAX, IFX, PHEP, FKLLC, PE #### [facility] [address] [place] [phone] [employer]per: Bala Skelton MD Immature Platelet Fractionon 07-20-2022 Platelet, Fluorescence Platelet clumps present, count appears adequate. [facility] [place]/Lambda Quantitative Fr ee Light Chains, Serumon 07-20-2022 Free [place]/Lambda Ratio 1.67 High 0.26 - 1.65 [facility] Interpretation and review of laboratory results Abnormal [facility] [place] Free Light Chains QNT 2.91 mg/dL High 0.37 - 1.94 mg/dL [facility] Lambda Free Light Chains QNT 1.74 mg/dL 0.57 - 2.63 mg/dL [facility] Lactate, Sepsison 07-20-2022 Lactic Acid,Sep Wbld 3.8 mmol/L High 0.5-1.9 [facility] Comment on above: Performed By: #### B C #### [facility] [address] [place] [phone] [employer] Helper: Bala Skelton MD Interpretation and review of laboratory results Abnormal [facility] Lactic Acid, Sepsis, Whole Blood 3.8 mmol/L High 0.5 - 1.9 mmol/L [facility] Lactic Acidon 07-20-2022 Lactic Acid,Whole Bl 2.0 mmol/L Normal 0.7-2.1 [facility] Comment on above: Performed By: #### B C #### [facility] [address] [place] [address] [phone] [employer] Helper: Bala Skelton MD Lactic Acid, Whole Blood 2.0 mmol/L 0.7 - 2.1 mmol/L [facility] No Panel Informationon 07-20 [facility] Interpretation and review of laboratory results Abnormal [facility] PLT, Immature Fract.on 07-20 Platelet, Fluoresc. Platelet clumps present, count appears adequate. Normal 138-453 [facility] Comment on above: Performed By: #### A NAX, IFX, PHEP, FKLLC, PE #### [facility] [place] [address] [employer] Helper: Bala Skelton MD POC Glucose Fingerstickon Glucose [Mass/Vol] 145 mg/dL High 65 - 105 mg/dL [facility] Interpretation and review of laboratory results Abnormal [facility] Glucose [Mass/Vol] 231 mg/dL High 65 - 105 mg/dL [facility] Interpretation and review of laboratory results Abnormal [facility] Glucose [Mass/Vol] 393 mg/dL High 65 - 105 mg/dL [facility] Interpretation and review of laboratory results Abnormal [facility] Glucose [Mass/Vol] 405 mg/dL Critically high 65 - 1 05 mg/dL [facility] Comment on above: Critical Noted Interpretation and review of laboratory results Abnormal [facility] Glucose [Mass/Vol] 375 mg/dL High 65 - 105 mg/dL [facility] Interpretation and review of laboratory results Abnormal [facility] Glucose [Mass/Vol] 415 mg/dL Critically high 65 - 1 05 mg/dL [facility] Interpretation and review of laboratory results Abnormal [facility] Procalcitoninon 07-20-2022 Procalcitonin 48.54 ng/mL High <0.09 [facility] Comment on above: Result Comment: Suspected [...] entered into the Change in Procalcitonin Calculator (www.etdjql-mnj-qcrndktpqp.com) to determine the patient's Mortality Risk Prognosis In healthy neonates, plasma Procalcitonin (PCT) concentrations increase gradually after , reaching peak values at about 24 hours of age then decrease to normal values below 0.5 ng/mL by 48-72 hours of age. Performed By: #### A NAX, IFX, PHEP, FKLLC, PE #### [facility] [place] [address] [employer] Helper: Bala Skeltno MD Interpretation and review of laboratory results Abnormal [facility] Procalcitonin 48.54 ng/mL High NINF - 0.09 ng/mL [facility] Comment on above: Suspected Sepsis: <0.50 ng/mL [...] entered into the Change in Procalcitonin Calculator (www.yfcyxg-nhj-tbgfurtbia.[employer]) to determine the patient's Mortality Risk Prognosis In healthy neonates, plasma Procalcitonin (PCT) concentrations increase gradually after , reaching peak values at about 24 hours of age then decrease to normal values below 0.5 ng/mL by 48-72 hours of age. [facility] Prot. Electroph, Blon 2021 Protein [Mass/Vol] 6.3 g/dL Low 6.4-8.3 [facility] Comment on above: Performed By: #### A NAX, IFX, PHEP, FKLLC, PE #### [facility] [address] [place] [address] [employer] Helper: Bala Skelton MD Prot. Electrophoresis, Uron 07-20-2022 Type of Specimen .URINE Normal [facility] Comment on above: Performed By: #### A NAX, IFX, PHEP, FKLLC, PE #### [facility] [address] [place] [phone] [employer] Helper: Bala Skelton MD Protein / creatinine ratio, urineon 07-20-2022 Creatinine, Ur 75.7 mg/dL 28 - 217 mg/dL [facility] Interpretation and review of laboratory results Abnormal [facility] Protein (U) [Mass/Vol] 145 mg/dL [facility] Comment on above: No normal range esta blished. Urine Total Protein Creatinine Ratio 1.92 High 0 - 0.2 [facility] Protein, urine, randomon Protein (U) [Mass/Vol] 144 mg/dL [facility] Comment on above: No normal range esta blished. Protein,Tot,Thom[employer]ons Uron 2021 Creatinine [Mass/Vol] 75.7 mg/dL Normal 28.0-217.0 [facility] Comment on above: Performed By: #### A NAX, IFX, PHEP, FKLLC, PE #### [facility] [address] [place] [phone] [employer] Helper: Bala Skelton MD Tot Prot. Conc. 145 mg/dL Normal [facility] Comment on above: Result Comment: No n ormal range established. Performed By: #### A NAX, IFX, PHEP, FKLLC, PE #### [facility] [address] [place] [phone] [employer] Helper: Bala Skelton MD Tot Prot. Conc. 144 mg/dL Normal [facility] Comment on above: Result Comment: No n ormal range established. Performed By: #### A NAX, IFX, PHEP, FKLLC, PE #### [facility] [address] [place] [address] [employer] Helper: Bala Skelton MD TP/Cre Ratio 1.92 High 0.00-0.20 [facility] Comment on above: Performed By: #### A NAX, IFX, PHEP, FKLLC, PE #### [facility] [address] [place] [address] [phone] [employer] Helper: Bala Skelton MD SODIUM, URINE, RANDOMon 07-07 Sodium (U) [Moles/Vol] mmol/L mmol/L [facility] Comment on above: No normal range esta blished. [facility] Sodium, Random Uron 07-20-20 22 Na Conc. Urine <20 Normal [facility] Comment on above: Result Comment: No n ormal range established. Performed By: #### B C #### [facility] [employer] [address] [place] [address] [phone] [employer] Helper: Bala Skelton MD Sodium (U) [Moles/Vol] 26 mmol/L Normal [facility] Comment on above: Result Comment: No n ormal range established. Performed By: #### A NAX, IFX, PHEP, FKLLC, PE #### [facility] [address] [place] [phone] [employer] Helper: Bala Skelton MD Sodium, urine, randomon 07-07 Sodium (U) [Moles/Vol] 26 mmol/L [facility] [employer] Comment on above: No normal range esta [...] Femi Enamorado MD 07/20/22 Final result Normal [facility] 1. Possible nephrostomy at the lower pole left kidney. Correlate with any recent instrumentation. 2. Equivocal dilatation of the upper pole left kidney. No overt hydronephrosis. 3. 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 RECOMMENDATIONS: Unavailable [facility] EXAMINATION: ULTRASOUND OF THE KIDNEYS 07/20/2022 [...] nephrostomy at the lower pole left kidney. [facility] Femi Enamorado MD - 07/20/2022 EXAMINATION: [...] involving the left renal hilum. RECOMMENDATIONS: Unavailable [facility] [employer] Phone: Radiology Study observation (narrative) [facility] [employer] Phone: US RETROPERITONEAL LIMITEDOr dered By: Femi Enamorado on 07-20-2022 [facility] [employer] Phone: Urinalysis w/ Microon 2021 Epithelial cells LM Ql (Urine sed) 0 TO 2 Normal 0-5 [facility] Comment on above: Performed By: #### A NAX, IFX, PHEP, FKLLC, PE #### [place] [address] [employer]: Bala Skelton MD Urine RBC's TOO NUMEROUS TO COUNT Normal 0-2 [facility] Comment on above: Performed By: #### A NAX, IFX, PHEP, FKLLC, PE #### [facility] [address] [place] [phone] [employer] Helper: Bala Skelton MD Urine WBC's 10 TO 20 Normal 0-5 [facility] Comment on above: Performed By: #### A NAX, IFX, PHEP, FKLLC, PE #### [facility] [address] [place] [address] [phone] [employer]per: Bala Skelton MD Bilirubin, SemiQt,Ur Negative Normal NEG [facility] Comment on above: Performed By: #### A NAX, IFX, PHEP, FKLLC, PE #### [facility] [address] [place] [phone] [employer]per: Bala Skelton MD Blood, Urine LARGE Abnormal NEG [facility] Comment on above: Performed By: #### A NAX, IFX, PHEP, FKLLC, PE #### [facility] [address] [place] [phone] [employer] Helper: Bala Skelton MD Clarity (U) Cloudy Abnormal CLEAR [facility] Comment on above: Performed By: #### A NAX, IFX, PHEP, FKLLC, PE #### [facility] [address] [place] [phone] [employer]per: Bala Skelton MD Color (U) [place] Abnormal YEL [facility] Comment on above: Result Comment: INTE RPRET WITH CAUTION DUE TO INTENSE COLOR OF URINE. Performed By: #### A NAX, IFX, PHEP, FKLLC, PE #### [address] [address] [employer]: Bala Skelton MD Glucose Ql (U) 3+ Abnormal NEG [facility] Comment on above: Performed By: #### A NAX, IFX, PHEP, FKLLC, PE #### [facility] [address] [place] [phone] [employer]per: Bala Skelton MD Ketones Ql (U) Negative Normal NEG [facility] Comment on above: Performed By: #### A NAX, IFX, PHEP, FKLLC, PE #### [facility] [address] [place] [phone] [employer]: Bala Skelton MD Leukocyte esterase Test strip Ql (U) MODERATE Abnormal NEG [facility] Comment on above: Performed By: #### A NAX, IFX, PHEP, FKLLC, PE #### [address] [address] [employer]: Bala Skelton MD Nitrite,Ur Negative Normal NEG [facility] Comment on above: Performed By: #### A NAX, IFX, PHEP, FKLLC, PE #### [facility] [address] [place] [phone] [employer]: Bala Skelton MD PH,Ur 5.0 Normal 5.0-8.0 [facility] Comment on above: Performed By: #### A NAX, IFX, PHEP, FKLLC, PE #### [address] [address] [employer]: Bala Skelton MD Protein Ql (U) 2+ Abnormal NEG [facility] Comment on above: Performed By: #### A NAX, IFX, PHEP, FKLLC, PE #### [address] [address] [employer]: Bala Skelton MD Spec. [place],Ur 1.022 Normal 1.005-1.030 [facility] Comment on above: Performed By: #### A NAX, IFX, PHEP, FKLLC, PE #### [address] [address] [employer]: Bala Skelton MD Urobilinogen,Ur Normal Normal NORM [facility] Comment on above: Performed By: #### A NAX, IFX, PHEP, FKLLC, PE #### [address] [address] [employer]: Bala Skelton MD Urinalysis with Microscopico n 07-20-2022 Bilirubin Urine Negative NEGATIVE [facility] Color, UA [place] Abnormal Yellow [facility] Comment on above: INTERPRET WITH CAUTI ON DUE TO INTENSE COLOR OF URINE. Epithelial Cells UA 0 TO 2 [facility] Glucose, Ur 3+ Abnormal NEGATIVE [facility] Interpretation and review of laboratory results Abnormal [facility] Ketones Ql (U) Negative NEGATIVE [facility] Leukocyte esterase Test strip Ql (U) MODERATE Abnormal NEGATIVE [facility] Nitrite, Urine Negative NEGATIVE [facility] pH, UA 5.0 5 - 8 [facility] Protein, UA 2+ Abnormal NEGATIVE [facility] RBC, UA TOO NUMEROUS TO COUNT [facility] Specific Pendroy, UA 1.022 1.005 - 1.03 [facility] Turbidity UA Cloudy Abnormal Clear [facility] Urine Hgb LARGE Abnormal NEGATIVE [facility] Urobilinogen, Urine Normal Normal [facility] WBC, UA 10 TO 20 [facility] Venous Blood Gaseson 022 Body Temp. 37.0 Normal [facility] Comment on above: Performed By: #### V BG #### [facility] [address] [place] [phone] [employer]: Bala Skelton MD Carboxy Hgb 1.4 % Normal 0-5 [facility] Comment on above: Result Comment: Reference Range: Non-Smokers 0-2% Average Smoker 2-4% Heavy Smoker <10% Performed By: #### V BG #### [address] [address] [employer]: Bala Skelton MD FIO2 INFORMATION NOT PROVIDED Normal [facility] Comment on above: Performed By: #### V BG #### [facility] [address] [place] [phone] [employer] Helper: Bala Skelton MD HCO3 (Bld) [Moles/Vol] 19.6 mmol/L Low 24-30 [facility] Comment on above: Performed By: #### V BG #### [facility] [employer] [address] [place] [address] [phone] [employer]per: Bala Skelton MD Negative Base Excess 5.6 mmol/L High 0.0-2.0 [facility] Comment on above: Performed By: #### V BG #### [address] [address] [employer]: Bala Skelton MD Oxygen (Bld) [Partial pressure] 36.9 mm[Hg] Normal 30-50 [facility] Comment on above: Performed By: #### V BG #### [address] [address] [employer]per: Bala Skelton MD Oxygen saturation in Blood 74.4 % Normal 60.0-85.0 [facility] Comment on above: Performed By: #### V BG #### [address] [address] [employer]per: Bala Skelton MD pCO2 39.5 Normal 39-55 [facility] Comment on above: Performed By: #### V BG #### [address] [address] [employer] Helper: Bala Skelton MD pH (Bld) 7.316 [pH] Low 7.320-7.420 [facility] Comment on above: Performed By: #### V BG #### [address] [address] [employer]per: Bala Skelton MD XR CHEST PORTABLEon 07-20-20 [...] Ricarda Orozco DO 07/20/22 Final result Normal [facility] 1. Mild vascular congestion. 2. Minimal [...] related to atelectasis. No dense airspace consolidation. [employer] Phone: Radiology Study observation (narrative) [employer] Phone: XR CHEST PORTABLEOrdered By: Ricarda Orozco on 07-20-2022 [facility] [employer] Phone: Basic Metab w/rfx MGon 07-19 (cont.) Normal [facility] Comment on above: Result Comment: Aver age GFR for 50-59 years old: 93 mL/min/1.73sq m Chronic Kidney Disease: <60 mL/min/1.73sq m Kidney failure: <15 mL/min/1.73sq m eGFR calculated using average adult body mass. Additional eGFR calculator available at: http://www.[employer].com/multiple_crcl_2012.htm Performed By: #### B MPX, CDP #### [facility] [address] [place] [phone] [employer]: Bala Skelton MD Anion gap [Moles/Vol] 14 mmol/L Normal 9-17 [facility] Comment on above: Performed By: #### B MPX, CDP #### [facility] [address] [place] [address] [employer]: Bala Skelton MD Calcium [Mass/Vol] 8.3 mg/dL Low 8.6-10.4 [facility] Comment on above: Performed By: #### B MPX, CDP #### [facility] [address] [place] [address] [employer]per: Bala Skelton MD Chloride [Moles/Vol] 98 mmol/L Normal 98-107 [facility] Comment on above: Performed By: #### B MPX, CDP #### [facility] [address] [place] [address] [employer] Helper: Bala Skelton MD CO2 [Moles/Vol] 19 mmol/L Low 20-31 [facility] Comment on above: Performed By: #### B MPX, CDP #### [facility] [address] [place] [address] [employer]: Bala Skelton MD Creatinine [Mass/Vol] 1.71 mg/dL High 0.50-0.90 [facility] Comment on above: Performed By: #### B MPX, CDP #### [facility] [address] [place] [phone] [employer]: Bala Skelton MD GFR, Amer 38 mL/min Low >60 [facility] Comment on above: Performed By: #### B MPX, CDP #### [facility] [address] [place] [phone] [employer]per: Bala Skelton MD GFR,non Amer 32 mL/min Low >60 [facility] Comment on above: Performed By: #### B MPX, CDP #### [facility] [address] [place] [address] [employer]per: Bala Skelton MD Glucose [Mass/Vol] 263 mg/dL High 70-99 [facility] Comment on above: Performed By: #### B MPX, CDP #### [facility] [address] [place] [address] [employer]: Bala Skelton MD Potassium [Moles/Vol] 4.0 mmol/L Normal 3.7-5.3 [facility] Comment on above: Performed By: #### B MPX, CDP #### [facility] [address] [place] [phone] [employer]: Bala Skelton MD Sodium [Moles/Vol] 131 mmol/L Low 135-144 [facility] Comment on above: Performed By: #### B MPX, CDP #### [facility] [address] [place] [address] [employer]per: Bala Skelton MD Urea nitrogen [Mass/Vol] 38 mg/dL High 6-20 [facility] Comment on above: Performed By: #### B MPX, CDP #### [facility] [address] [place] [phone] [employer]: Bala Skelton MD Basic Metabolic Panel w/ Ref romulo to MGon 07-19-2022 Anion gap [Moles/Vol] 14 mmol/L 9 - 17 mmol/L [facility] Calcium [Mass/Vol] 8.3 mg/dL Low 8.6 - 10. 4 mg/dL [facility] Chloride [Moles/Vol] 98 mmol/L 98 - 10 7 mmol/L [facility] CO2 [Moles/Vol] 19 mmol/L Low 20 - 31 mmol/L [facility] Creatinine [Mass/Vol] 1.71 mg/dL High 0.5 - 0.9 mg/dL [facility] GFR 38 mL/min Low 60 - PI NF mL/min [facility] GFR Non- 32 mL/min Low 60 - PINF mL/min [facility] GFR/1.73 sq M.predicted MDRD (S/P/Bld) [Vol rate/Area] [facility] Comment on above: Average GFR for 50-5 9 years old: 93 mL/min/1.73sq m Chronic Kidney Disease: <60 mL/min/1.73sq m Kidney failure: <15 mL/min/1.73sq m eGFR calculated using average adult body mass. Additional eGFR calculator available at: http://www.[employer]/multiple_crcl_2012.htm Glucose [Mass/Vol] 263 mg/dL High 70 - 99 mg/dL [facility] Interpretation and review of laboratory results Abnormal [facility] Potassium [Moles/Vol] 4.0 mmol/L 3.7 - 5.3 mmol/L [facility] Sodium [Moles/Vol] 131 mmol/L Low 135 - 144 mmol/L [facility] Urea nitrogen (BldV) [Mass/Vol] 38 mg/dL High 6 - 20 mg/dL [facility] CBC with Auto Differentialon 07-19-2022 Absolute Eos # 0.16 [place] [facility] Absolute Immature Granulocyte 0.05 [facility] Absolute Lymph # 2.34 [facility] Absolute Dickey # 0.64 [facility] Basophils (Bld) [#/Vol] 0.03 10*3/uL [facility] Basophils/100 WBC (Bld) 0 % 0 - 2 % [facility] Eosinophils/100 WBC (Bld) 2 % 1 - 4 % [facility] Hematocrit (Bld) [Volume fraction] 30.2 % Low 36.3 - 47.1 % [facility] Hemoglobin (Bld) [Mass/Vol] 10.4 g/dL Low 11.9 - 15.1 g/dL [facility] Immature granulocytes/100 WBC (Bld) 1 % High 0 [facility] Interpretation and review of laboratory results Abnormal [facility] Lymphocytes/100 WBC (Bld) 33 % 24 - 43 % [facility] MCH (RBC) [Entitic mass] 29.7 pg 25.2 - 33.5 pg [facility] MCHC (RBC) [Mass/Vol] 34.4 g/dL 28.4 - 34.8 g/dL [facility] MCV (RBC) [Entitic vol] 86.3 fL 82.6 - 102.9 fL [facility] Monocytes/100 WBC (Bld) 9 % 3 - 12 % [facility] NRBC Automated 0.0 0.0 per 100 WBC [facility] Platelet distribution width (Bld) [Ratio] 13.6 % 11.8 - 14.4 % [facility] Platelet mean volume (Bld) [Entitic vol] 11.2 fL 8.1 - 13.5 fL [facility] Platelets (Bld) [#/Vol] 410 10*3/uL [facility] RBC (Bld) [#/Vol] 3.50 10*6/uL Low 3.95 - 5.1 1 m/uL [facility] Segmented neutrophils/100 WBC (Bld) 54 % 36 - 65 % [facility] Segs Absolute 3.83 [facility] WBC (Bld) [#/Vol] 7.1 10*3/uL [facility] CBC with Diffon 07-19-2022 Abs. Basophil 0.03 k/uL Normal 0.00-0.20 [facility] Comment on above: Performed By: #### B STEPHENIEX CDP #### [employer] [address] [place] [address] [employer]: Bala Skelton MD Abs.Imm.Granulocyte 0.05 k/uL Normal 0.00-0.30 [facility] Comment on above: Performed By: #### B STEPHENIEX, CDP #### [address] [address] [employer]: Bala Skelton MD Abs.Neutrophil (Seg) 3.83 k/uL Normal 1.50-8.10 [facility] Comment on above: Performed By: #### B MPX, CDP #### [address] [address] [employer]: Bala Skelton MD Basophils/100 WBC (Bld) 0 % Normal 0-2 [facility] Comment on above: Performed By: #### B MPX, CDP #### [address] [address] [employer]: Bala Skelton MD Eosinophils (Bld) [#/Vol] 0.16 10*3/uL Normal 0.00-0.44 [facility] Comment on above: Performed By: #### B MPX, CDP #### [address] [address] [employer]: Bala Skelton MD Eosinophils/100 WBC (Bld) 2 % Normal 1-4 [facility] Comment on above: Performed By: #### B MPX, CDP #### [address] [address] [employer]: Bala Skelton MD Erythrocyte distribution width (RBC) [Ratio] 13.6 % Normal 11.8-14.4 [facility] Comment on above: Performed By: #### B MPX, CDP #### [address] [address] [employer]: Bala Skelton MD Hematocrit (Bld) [Volume fraction] 30.2 % Low 36.3-47.1 [facility] Comment on above: Performed By: #### B MPX, CDP #### [address] [address] [employer]: Bala Skelton MD Hemoglobin (Bld) [Mass/Vol] 10.4 g/dL Low 11.9-15.1 [facility] Comment on above: Performed By: #### B MPX, CDP #### [address] [address] [employer]: Bala Skelton MD Immature granulocytes/100 WBC (Bld) 1 % High 0 [facility] Comment on above: Performed By: #### B MPX, CDP #### [address] [address] [employer]: Bala Skelton MD Lymphocytes (Bld) [#/Vol] 2.34 10*3/uL Normal 1.10-3.70 [facility] Comment on above: Performed By: #### B MPX, CDP #### [address] [address] [employer]: Bala Skelton MD Lymphocytes/100 WBC (Bld) 33 % Normal 24-43 [facility] Comment on above: Performed By: #### B MPX, CDP #### [address] [address] [employer]: Bala Skelton MD MCH (RBC) [Entitic mass] 29.7 pg Normal 25.2-33.5 [facility] Comment on above: Performed By: #### B MPX, CDP #### [address] [address] [employer]: Bala Skelton MD MCHC (RBC) [Mass/Vol] 34.4 g/dL Normal 28.4-34.8 [facility] Comment on above: Performed By: #### B MPX, CDP #### [address] [address] [employer]: Bala Skelton MD MCV (RBC) [Entitic vol] 86.3 fL Normal 82.6-102.9 [facility] Comment on above: Performed By: #### B MPX, CDP #### [address] [address] [employer]: Bala Skelton MD Monocytes (Bld) [#/Vol] 0.64 10*3/uL Normal 0.10-1.20 [facility] Comment on above: Performed By: #### B MPX, CDP #### [address] [address] [employer]: Bala Skelton MD Monocytes/100 WBC (Bld) 9 % Normal 3-12 [facility] Comment on above: Performed By: #### B MPX, CDP #### [address] [address] [employer]: Bala Skelton MD Neutrophil (Seg) 54 % Normal 36-65 [facility] Comment on above: Performed By: #### B MPX, CDP #### [address] [address] [employer]: Bala Skelton MD NRBC Automated 0.0 per 100 WBC Normal 0.0 [facility] Comment on above: Performed By: #### B MPX, CDP #### [address] [address] [employer]: Bala Skelton MD Platelet mean volume (Bld) [Entitic vol] 11.2 fL Normal 8.1-13.5 [facility] Comment on above: Performed By: #### B MPX, CDP #### [address] [address] [employer]: Bala Skelton MD Platelets (Bld) [#/Vol] 410 10*3/uL Normal 138-453 [facility] Comment on above: Performed By: #### B MPX, CDP #### [facility] [address] [place] [address] [employer]: Bala Skelton MD RBC (Bld) [#/Vol] 3.50 10*6/uL Low 3.95-5.11 [facility] Comment on above: Performed By: #### B MPX, CDP #### [facility] [place] [address] [employer]: Bala Skelton MD WBC (Bld) [#/Vol] 7.1 10*3/uL Normal 3.5-11.3 [facility] Comment on above: Performed By: #### B MPX, CDP #### [facility] [address] [place] [address] [employer]: Bala Skelton MD Cult,Urineon 07-19-2022 Cult,Urine Specimen Description .CLEAN CATCH URINE Culture NO SIGNIFICANT GROWTH Report Status FINAL 07/19/2022 Normal [facility] Comment on above: Performed By: #### A NAX, IFX, PHEP, FKLLC, PE #### [facility] [employer] [address] [place] [address] [employer]: Bala Skelton MD Culture, Urineon 07-19-2022 Bacteria identified Cx Nom (U) NO SIGNIFICANT GROWTH [facility] Specimen Description .CLEAN CATCH URINE [facility] Automatic Agency [facility] Automatic Agency IR GUIDED NEPHROSTOMY CATH P LACEMENT LEFTon [...] the procedure including risks, benefits, and alternatives. [place] protocol was followed. The patient's flank was [...] into the urinary bladder using a 4 Irish Kumpe the catheter; the Glidewire was exchanged [...] puncture of the lower pole calyx, 4 Irish Kumpe the catheter manipulation and glidewire extension into the urinary bladder. Subsequent images show the nephroureteral stent in satisfactory position. IMPRESSION: Successful percutaneous left nephroureteral stent placement via lower pole, past a large staghorn calculus, with distal pigtail tip position in the urinary bladder, as above. Findings were discussed with KASH CLAY at 4:09 pm on 07/19/2022. [employer] Phone: Radiology Study observation (narrative) [employer] Phone: IR GUIDED NEPHROSTOMY CATH P LACEMENT LEFTOrdered By: Noman Mullen on 07-19-2022 [facility] Work Phone: POC Glucose Fingerstickon Glucose [Mass/Vol] 278 mg/dL High 65 - 105 mg/dL [facility] Interpretation and review of laboratory results Abnormal [facility] Glucose [Mass/Vol] 231 mg/dL High 65 - 105 mg/dL [facility] Interpretation and review of laboratory results Abnormal [facility] Glucose [Mass/Vol] 301 mg/dL High 65 - 105 mg/dL [facility] Interpretation and review of laboratory results Abnormal [facility] Glucose [Mass/Vol] 283 mg/dL High 65 - 105 mg/dL [facility] Interpretation and review of laboratory results Abnormal [facility] PTon 07-19-2022 INR Coag (PPP) [Relative time] 0.9 {INR} Normal [facility] Comment on above: Result Comment: Therapeutic Range: Moderate Anticoagulant Intensity: INR = 2.0-3.0 High Anticoagulant Intensity: INR = 2.5-3.5 Performed By: #### A NAX, IFX, PHEP, FKLLC, PE #### [facility] [address] [place], [place] [id number] [employer]: Bala Skelton MD PT Coag (PPP) [Time] 9.8 s Normal 9.1-12.3 [facility] Comment on above: Performed By: #### A NAX, IFX, PHEP, FKLLC, PE #### [facility] [address] [place] [phone] [employer]: Bala Skelton MD Protime-INRon 07-19-2022 INR Coag (Bld) [Relative time] 0.9 {INR} [facility] Comment on above: Therapeutic Range: Moderate Anticoagulant Intensity: INR = 2.0-3.0 High Anticoagulant Intensity: INR = 2.5-3.5 PT Coag (PPP) [Time] 9.8 s [facility] Urinalysis w/ Microon 2021 Bilirubin, SemiQt,Ur Negative Normal NEG [facility] Comment on above: Performed By: #### A NAX, IFX, PHEP, FKLLC, PE #### [address] [address] [employer]: Bala Skelton MD Blood, Urine LARGE Abnormal NEG [facility] Comment on above: Performed By: #### A NAX, IFX, PHEP, FKLLC, PE #### [address] [address] [employer]: Bala Skelton MD Casts 2 TO 5 HYALINE Normal 0-8 [facility] Comment on above: Result Comment: Refe rence range defined for non-centrifuged specimen. Performed By: #### A NAX, IFX, PHEP, FKLLC, PE #### [address] [address] [employer]: Bala Skelton MD Clarity (U) Turbid Abnormal CLEAR [facility] Comment on above: Performed By: #### A NAX, IFX, PHEP, FKLLC, PE #### [address] [phone] [employer]: Bala Skelton MD Color (U) Yellow Normal YEL [facility] Comment on above: Performed By: #### A NAX, IFX, PHEP, FKLLC, PE #### [address] [phone] [employer]: Bala Skelton MD Epithelial cells LM Ql (Urine sed) 0 TO 2 Normal 0-5 [facility] Comment on above: Performed By: #### A NAX, IFX, PHEP, FKLLC, PE #### [facility] [address] [place] [address] [employer]: Bala Skelton MD Glucose Ql (U) 1+ Abnormal NEG [facility] Comment on above: Performed By: #### A NAX, IFX, PHEP, FKLLC, PE #### [facility] [address] [place] [address] [employer]: Bala Skelton MD Ketones Ql (U) Negative Normal NEG [facility] Comment on above: Performed By: #### A NAX, IFX, PHEP, FKLLC, PE #### [facility] [address] [place] [address] [employer]: Bala Skelton MD Leukocyte esterase Test strip Ql (U) LARGE Abnormal NEG [facility] Comment on above: Performed By: #### A NAX, IFX, PHEP, FKLLC, PE #### [facility] [address] [place] [address] [employer]: Bala Skelton MD Nitrite,Ur Negative Normal NEG [facility] Comment on above: Performed By: #### A NAX, IFX, PHEP, FKLLC, PE #### [facility] [address] [place] [address] [employer]: Bala Skelton MD PH,Ur 5.0 Normal 5.0-8.0 [facility] Comment on above: Performed By: #### A NAX, IFX, PHEP, FKLLC, PE #### [facility] [address] [place] [address] [employer]: Bala Skelton MD Protein Ql (U) 1+ Abnormal NEG [facility] Comment on above: Performed By: #### A NAX, IFX, PHEP, FKLLC, PE #### [facility] [address] [place] [address] [employer]: Bala Skelton MD Spec. Pendroy,Ur 1.017 Normal 1.005-1.030 [facility] Comment on above: Performed By: #### A NAX, IFX, PHEP, FKLLC, PE #### [facility] [address] [place] [address] [employer]: Bala Skelton MD Urine RBC's 10 TO 20 Normal 0-4 [facility] Comment on above: Result Comment: Refe rence range defined for non-centrifuged specimen. Performed By: #### A NAX, IFX, PHEP, FKLLC, PE #### [facility] [address] [place] [address] [employer]: Bala Skelton MD Urine WBC's TOO NUMEROUS TO COUNT Normal 0-5 [facility] Comment on above: Performed By: #### A NAX, IFX, PHEP, FKLLC, PE #### [facility] [address] [place] [address] [employer]: Bala Skelton MD Urobilinogen,Ur Normal Normal NORM [facility] Comment on above: Performed By: #### A NAX, IFX, PHEP, FKLLC, PE #### [address] [address] [employer]: Bala Skelton MD Urinalysis with Microscopico n 07-19-2022 Bilirubin Urine Negative NEGATIVE [facility] Casts UA 2 TO 5 HYALINE Reference range defined for non-centrifuged specimen. [facility] Color, UA Yellow Yellow [facility] Epithelial Cells UA 0 TO 2 [facility] Glucose, Ur 1+ Abnormal NEGATIVE [facility] Interpretation and review of laboratory results Abnormal [facility] Ketones Ql (U) Negative NEGATIVE [facility] Leukocyte esterase Test strip Ql (U) LARGE Abnormal NEGATIVE [facility] Nitrite, Urine Negative NEGATIVE [facility] pH, UA 5.0 5 - 8 [facility] Protein, UA 1+ Abnormal NEGATIVE [facility] RBC, UA 10 TO 20 [facility] Comment on above: Reference range defi rodger for non-centrifuged specimen. Specific Pendroy, UA 1.017 1.005 - 1.03 [facility] Turbidity UA Turbid Abnormal Clear [facility] Urine Hgb LARGE Abnormal NEGATIVE [facility] Urobilinogen, Urine Normal Normal [facility] WBC, UA TOO NUMEROUS TO COUNT [facility] APTTon 07-18-2022 aPTT Coag (Bld) [Time] 22.8 s Normal 20.5-30.5 [facility] Comment on above: Result Comment: IV Heparin Therapy Range: 48.6-77.8 Performed By: #### A NAX, IFX, PHEP, FKLLC, PE #### [facility] [address] [place] [id number] [employer]: Bala Skelton MD aPTT Coag (Bld) [Time] 22.8 s [facility] Comment on above: IV Heparin Therapy Range: 48.6-77.8 Basic Metab w/rfx MGon 07-18 (cont.) Normal [facility] Comment on above: Result Comment: Aver age GFR for 50-59 years old: 93 mL/min/1.73sq m Chronic Kidney Disease: <60 mL/min/1.73sq m Kidney failure: <15 mL/min/1.73sq m eGFR calculated using average adult body mass. Additional eGFR calculator available at: http://www.[employer].com/multiple_crcl_2012.htm Performed By: #### A NAX, IFX, PHEP, FKLLC, PE #### [facility] [place] [address] [employer]: Bala Skelton MD Anion gap [Moles/Vol] 13 mmol/L Normal 9-17 [facility] Comment on above: Performed By: #### A NAX, IFX, PHEP, FKLLC, PE #### [facility] [address] [place] [address] [employer]: Bala Skelton MD Calcium [Mass/Vol] 9.4 mg/dL Normal 8.6-10.4 [facility] Comment on above: Performed By: #### A NAX, IFX, PHEP, FKLLC, PE #### [address] [address] [employer] Servicer Helper: Bala Skelton MD Chloride [Moles/Vol] 100 mmol/L Normal 98-107 [facility] Comment on above: Performed By: #### A NAX, IFX, PHEP, FKLLC, PE #### [address] [address] [employer] Servicer Helper: Bala Skelton MD CO2 [Moles/Vol] 24 mmol/L Normal 20-31 [facility] Comment on above: Performed By: #### A NAX, IFX, PHEP, FKLLC, PE #### [address] [address] [employer] Servicer Helper: Bala Skelton MD Creatinine [Mass/Vol] 1.65 mg/dL High 0.50-0.90 [facility] Comment on above: Performed By: #### A NAX, IFX, PHEP, FKLLC, PE #### [address] [address] [employer] Servicer Helper: Bala Skelton MD GFR, Amer 40 mL/min Low >60 [facility] Comment on above: Performed By: #### A NAX, IFX, PHEP, FKLLC, PE #### [facility] [address] [place] [id number] [employer] Servicer Helper: Bala Skelton MD GFR,non Amer 33 mL/min Low >60 [facility] Comment on above: Performed By: #### A NAX, IFX, PHEP, FKLLC, PE #### [facility] [address] [place] [address] [phone] [employer] Servicer Helper: Bala Skelton MD Glucose [Mass/Vol] 239 mg/dL High 70-99 [facility] Comment on above: Performed By: #### A NAX, IFX, PHEP, FKLLC, PE #### [facility] [address] [place] [address] [phone] [employer] Servicer Helper: Bala Skelton MD Potassium [Moles/Vol] 4.9 mmol/L Normal 3.7-5.3 [facility] Comment on above: Performed By: #### A NAX, IFX, PHEP, FKLLC, PE #### [address] [address] [employer] Servicer Helper: Bala Skelton MD Sodium [Moles/Vol] 137 mmol/L Normal 135-144 [facility] Comment on above: Performed By: #### A NAX, IFX, PHEP, FKLLC, PE #### [facility] [address] [place] [phone] [employer] Servicer Helper: Bala Skelton MD Urea nitrogen [Mass/Vol] 33 mg/dL High 6-20 [facility] Comment on above: Performed By: #### A NAX, IFX, PHEP, FKLLC, PE #### [facility] [address] [place] [phone] [employer] Servicer Helper: Bala Skelton MD Basic Metabolic Panel w/ Ref romulo to MGon 07-18-2022 Anion gap [Moles/Vol] 13 mmol/L 9 - 17 mmol/L [facility] Calcium [Mass/Vol] 9.4 mg/dL 8.6 - 10. 4 mg/dL [facility] Chloride [Moles/Vol] 100 mmol/L 98 - 10 7 mmol/L [facility] CO2 [Moles/Vol] 24 mmol/L 20 - 31 mmol/L [facility] Creatinine [Mass/Vol] 1.65 mg/dL High 0.5 - 0.9 mg/dL [facility] GFR 40 mL/min Low 60 - PI NF mL/min [facility] GFR Non- 33 mL/min Low 60 - PINF mL/min [facility] GFR/1.73 sq M.predicted MDRD (S/P/Bld) [Vol rate/Area] [facility] Comment on above: Average GFR for 50-5 9 years old: 93 mL/min/1.73sq m Chronic Kidney Disease: <60 mL/min/1.73sq m Kidney failure: <15 mL/min/1.73sq m eGFR calculated using average adult body mass. Additional eGFR calculator available at: http://www.[employer]/multiple_crcl_2011.htm Glucose [Mass/Vol] 239 mg/dL High 70 - 99 mg/dL [facility] Interpretation and review of laboratory results Abnormal [facility] Potassium [Moles/Vol] 4.9 mmol/L 3.7 - 5.3 mmol/L [facility] Sodium [Moles/Vol] 137 mmol/L 135 - 144 mmol/L [facility] Urea nitrogen (BldV) [Mass/Vol] 33 mg/dL High 6 - 20 mg/dL [facility] CBC AUTO DIFFon 07-18-2022 BASO # 0.0 103/ul Normal 0.0-0.1 [facility] Comment on above: Performed By: #### C BC #### [facility] [address] [place], [place] [address] Dr. Delmer Rea Basophils/100 WBC (Bld) 0.2 % Normal 0.2-2.0 [facility] Comment on above: Performed By: #### C BC #### [facility] [address] [place], [place] [address] Dr. Delmer Rea EO # 0.1 103/ul Normal 0.0-0.7 [facility] Comment on above: Performed By: #### C BC #### [facility] [address] [place] [address] [address] Delmer Rea Eosinophils/100 WBC (Bld) 0.7 % Critically low 0.9-7.0 [facility] Comment on above: Performed By: #### C BC #### [facility] [address] [address] [address] Delmer Rea Erythrocyte distribution width (RBC) [Ratio] 13.1 % Normal 11.0-15.0 [facility] Comment on above: Performed By: #### C BC #### [facility] [address] [place] [address] Dr. Delmer Rea Hematocrit (Bld) [Volume fraction] 36.9 % Normal 36.0-48.0 [facility] Comment on above: Performed By: #### C BC #### [facility] [address] [place] [address] Dr. Delmer Rea Hemoglobin (Bld) [Mass/Vol] 12.5 g/dL Normal 12.0-16.0 [facility] Comment on above: Performed By: #### C BC #### [facility] [address] [place] [address] Dr. Delmer Rea IG # 0.08 10e3/ul Critically high 0.00-0.03 [facility] Comment on above: Performed By: #### C BC #### [facility] [address] [place] [address] Dr. Delmer Rea IG % 0.6 % Critically high 0.0-0.5 [facility] Comment on above: Performed By: #### C BC #### [facility] [address] [place] [address] Dr. Delmer Rea LYMPH # 1.5 103/ul Normal 1.2-3.8 [facility] Comment on above: Performed By: #### C BC #### [facility] [address] [place] [address] Dr. Delmer Rea Lymphocytes/100 WBC (Bld) 11.0 % Critically low 20.5-60.0 [facility] Comment on above: Performed By: #### C BC #### [facility] [address] [place] [address] Dr. Delmer Rea MANUAL DIFF REQ NO Normal [facility] Comment on above: Performed By: #### C BC #### [facility] [address] [place] [address] Dr. Delmer Rea MCH (RBC) [Entitic mass] 29.0 pg Normal 26.7-34.0 [facility] Comment on above: Performed By: #### C BC #### [facility] [address] [place] [address] Dr. Delmer Rea MCHC (RBC) [Mass/Vol] 33.9 g/dL Normal 29.9-35.2 [facility] Comment on above: Performed By: #### C BC #### [facility] [address] [place] [address] Dr. Delmer Rea MCV (RBC) [Entitic vol] 85.6 fL Normal 81.0-99.0 [facility] Comment on above: Performed By: #### C BC #### [facility] [address] [place] [address] Dr. Delmer Rea MONO # 0.8 103/ul Normal 0.3-0.8 [facility] Comment on above: Performed By: #### C BC #### [facility] [address] [place] [address] Dr. Delmer Rea Monocytes/100 WBC (Bld) 5.9 % Normal 1.7-12.0 [facility] Comment on above: Performed By: #### C BC #### [facility] [address] [place] [address] Dr. Delmer Rea NEUT # 11.2 103/ul Critically high 1.4-6.5 [facility] Comment on above: Performed By: #### C BC #### [facility] [address] [place] [address] Dr. Delmer Rea Neutrophils/100 WBC (Bld) 81.6 % Critically high 43.0-75.0 [facility] Comment on above: Performed By: #### C BC #### [facility] [address] [address] [address] Delmer Rea Platelet mean volume (Bld) [Entitic vol] 10.3 fL Normal 9.5-13.5 [facility] Comment on above: Performed By: #### C BC #### [facility] [address] [place] [address] [address] Delmer Rea PLT 362 103/ul Normal 150-450 [facility] Comment on above: Performed By: #### C BC #### [facility] [address] [address] [address] Delmer Rea RBC 4.31 106/ul Normal 4.20-5.40 [facility] Comment on above: Performed By: #### C BC #### [facility] [address] [address] [address] Delmer Rea WBC 13.7 103/ul Critically high 4.0-11.0 [facility] Comment on above: Performed By: #### C BC #### [facility] [address] [address] [address] Delmer Rea CBC with Auto Differentialon 07-18-2022 Absolute Eos # 0.08 [place] [facility] Absolute Immature Granulocyte 0.08 [facility] Absolute Lymph # 2.13 [facility] Absolute Dickey # 0.84 [facility] Basophils (Bld) [#/Vol] 0.04 10*3/uL [facility] Basophils/100 WBC (Bld) 0 % 0 - 2 % [facility] Eosinophils/100 WBC (Bld) 1 % 1 - 4 % [facility] Hematocrit (Bld) [Volume fraction] 35.4 % Low 36.3 - 47.1 % [facility] Hemoglobin (Bld) [Mass/Vol] 11.8 g/dL Low 11.9 - 15.1 g/dL [facility] Immature granulocytes/100 WBC (Bld) 1 % High 0 [facility] Interpretation and review of laboratory results Abnormal [facility] Lymphocytes/100 WBC (Bld) 17 % Low 24 - 43 % [facility] MCH (RBC) [Entitic mass] 28.6 pg 25.2 - 33.5 pg [facility] MCHC (RBC) [Mass/Vol] 33.3 g/dL 28.4 - 34.8 g/dL [facility] MCV (RBC) [Entitic vol] 85.7 fL 82.6 - 102.9 fL [facility] Monocytes/100 WBC (Bld) 7 % 3 - 12 % [facility] NRBC Automated 0.0 0.0 per 100 WBC [facility] Platelet distribution width (Bld) [Ratio] 13.2 % 11.8 - 14.4 % [facility] Platelet mean volume (Bld) [Entitic vol] 10.4 fL 8.1 - 13.5 fL [facility] Platelets (Bld) [#/Vol] 339 10*3/uL [facility] RBC (Bld) [#/Vol] 4.13 10*6/uL 3.95 - 5.1 1 m/uL [facility] Segmented neutrophils/100 WBC (Bld) 74 % High 36 - 65 % [facility] Segs Absolute 9.11 High [facility] WBC (Bld) [#/Vol] 12.3 10*3/uL High [facility] CBC with Diffon 07-18-2022 Abs. Basophil 0.04 k/uL Normal 0.00-0.20 [facility] Comment on above: Performed By: #### A NAX, IFX, PHEP, FKLLC, PE #### [facility] [place], [place] [phone] [employer] Servicer Helper: Bala Skelton MD Abs.Imm.Granulocyte 0.08 k/uL Normal 0.00-0.30 [facility] Comment on above: Performed By: #### A NAX, IFX, PHEP, FKLLC, PE #### [facility] [place], [place] [phone] [employer] Servicer Helper: Bala Skelton MD Abs.Neutrophil (Seg) 9.11 k/uL High 1.50-8.10 [facility] Comment on above: Performed By: #### A NAX, IFX, PHEP, FKLLC, PE #### [address] [address] [employer] Servicer Helper: Bala Skelton MD Basophils/100 WBC (Bld) 0 % Normal 0-2 [facility] Comment on above: Performed By: #### A NAX, IFX, PHEP, FKLLC, PE #### [address] [address] [employer] Servicer Helper: Bala Skelton MD Eosinophils (Bld) [#/Vol] 0.08 10*3/uL Normal 0.00-0.44 [facility] Comment on above: Performed By: #### A NAX, IFX, PHEP, FKLLC, PE #### [address] [address] [employer] Servicer Helper: Bala Skelton MD Eosinophils/100 WBC (Bld) 1 % Normal 1-4 [facility] Comment on above: Performed By: #### A NAX, IFX, PHEP, FKLLC, PE #### [address] [address] [employer] Servicer Helper: Bala Skelton MD Erythrocyte distribution width (RBC) [Ratio] 13.2 % Normal 11.8-14.4 [facility] Comment on above: Performed By: #### A NAX, IFX, PHEP, FKLLC, PE #### [place] [address] [employer] Helper: Bala Skelton MD Hematocrit (Bld) [Volume fraction] 35.4 % Low 36.3-47.1 [facility] Comment on above: Performed By: #### A NAX, IFX, PHEP, FKLLC, PE #### [address] [address] [employer] Servicer Helper: Bala Skelton MD Hemoglobin (Bld) [Mass/Vol] 11.8 g/dL Low 11.9-15.1 [facility] Comment on above: Performed By: #### A NAX, IFX, PHEP, FKLLC, PE #### [address] [address] [employer] Servicer Helper: Bala Skelton MD Immature granulocytes/100 WBC (Bld) 1 % High 0 [facility] Comment on above: Performed By: #### A NAX, IFX, PHEP, FKLLC, PE #### [address] [address] [employer] Servicer Helper: Bala Skelton MD Lymphocytes (Bld) [#/Vol] 2.13 10*3/uL Normal 1.10-3.70 [facility] Comment on above: Performed By: #### A NAX, IFX, PHEP, FKLLC, PE #### [address] [address] [employer] Servicer Helper: Bala Skelton MD Lymphocytes/100 WBC (Bld) 17 % Low 24-43 [facility] Comment on above: Performed By: #### A NAX, IFX, PHEP, FKLLC, PE #### [address] [address] [employer] Servicer Helper: Bala Skelton MD MCH (RBC) [Entitic mass] 28.6 pg Normal 25.2-33.5 [facility] Comment on above: Performed By: #### A NAX, IFX, PHEP, FKLLC, PE #### [address] [address] [employer] Servicer Helper: Bala Skelton MD MCHC (RBC) [Mass/Vol] 33.3 g/dL Normal 28.4-34.8 [facility] Comment on above: Performed By: #### A NAX, IFX, PHEP, FKLLC, PE #### [address] [address] [employer] Servicer Helper: Bala Skelton MD MCV (RBC) [Entitic vol] 85.7 fL Normal 82.6-102.9 [facility] Comment on above: Performed By: #### A NAX, IFX, PHEP, FKLLC, PE #### [address] [address] [employer] Servicer Helper: Bala Skelton MD Monocytes (Bld) [#/Vol] 0.84 10*3/uL Normal 0.10-1.20 [facility] Comment on above: Performed By: #### A NAX, IFX, PHEP, FKLLC, PE #### [address] [address] [employer] Servicer Helper: Bala Skelton MD Monocytes/100 WBC (Bld) 7 % Normal 3-12 [facility] Comment on above: Performed By: #### A NAX, IFX, PHEP, FKLLC, PE #### [address] [address] [employer] Servicer Helper: Bala Skelton MD Neutrophil (Seg) 74 % High 36-65 [facility] Comment on above: Performed By: #### A NAX, IFX, PHEP, FKLLC, PE #### [address] [address] [employer] Helper: Bala Skelton MD NRBC Automated 0.0 per 100 WBC Normal 0.0 [facility] Comment on above: Performed By: #### A NAX, IFX, PHEP, FKLLC, PE #### [address] [address] [employer] Helper: Bala Skelton MD Platelet mean volume (Bld) [Entitic vol] 10.4 fL Normal 8.1-13.5 [facility] Comment on above: Performed By: #### A NAX, IFX, PHEP, FKLLC, PE #### [address] [address] [employer] Helper: Bala Skelton MD Platelets (Bld) [#/Vol] 339 10*3/uL Normal 138-453 [facility] Comment on above: Performed By: #### A NAX, IFX, PHEP, FKLLC, PE #### [address] [address] [employer] Helper: Bala Skelton MD RBC (Bld) [#/Vol] 4.13 10*6/uL Normal 3.95-5.11 [facility] Comment on above: Performed By: #### A NAX, IFX, PHEP, FKLLC, PE #### [address] [address] [employer] Serv[employer] Helper: Bala Skelton MD WBC (Bld) [#/Vol] 12.3 10*3/uL High 3.5-11.3 [facility] Comment on above: Performed By: #### A NAX, IFX, PHEP, FKLLC, PE #### [address] [address] [employer] Servicer Helper: Bala Skelton MD CT ABD/PELVIS WO CONon [...] MARAH ALCANTAR Date: 2022-07-18 12:01 Normal [facility] Covid-19 PCR (CVDTB)on 07-07 SARS-CoV-2 (COVID-19) RNA KASI+probe Ql (Unsp spec) Not detected Normal NOT DETECTED [facility] Comment on above: Result Comment: When [...] for this test is supported by the [place] of [employer] and Human Service's declaration that [...] DLDL, CON, LIPID, T7, CMP, TSH #### [facility] [address] [place] [address] Dr. Delmer Rea ER URINE PROFILEon 2 Bilirubin Ql (U) Negative Normal NEGATIVE [facility] Comment on above: Performed By: #### U MICRO, ERUR #### [facility] [address] [place] [address] Dr. Delmer Rea Clarity (U) SL CLOUDY Abnormal CLEAR [facility] Comment on above: Performed By: #### U MICRO, ERUR #### [facility] [address] [place] [address] Dr. Delmer Rea Color (U) LT. YELLOW Normal YELLOW [facility] Comment on above: Performed By: #### U MICRO, ERUR #### [facility] [address] [place] [address] Dr. Delmer WALKER A micrscopic examination will be performed if indicated. Normal [facility] Comment on above: Performed By: #### U MICRO, ERUR #### [facility] [address] [place] [address] Dr. Delmer Rea Glucose Ql (U) 1000 mg/dl Abnormal NEGATIVE [facility] Comment on above: Performed By: #### U MICRO, ERUR #### [facility] [address] [place] [address] Dr. Delmer Rea Hemoglobin Ql (U) LARGE Abnormal NEGATIVE [facility] Comment on above: Performed By: #### U MICRO, ERUR #### [facility] [address] [place] [address] Dr. Delmer Rea Ketones Ql (U) Negative Normal NEGATIVE [facility] Comment on above: Performed By: #### U MICRO, ERUR #### [facility] [address] [place] [address] [address] Delmer Rea LEUKOCYTES SMALL Abnormal NEGATIVE [facility] Comment on above: Performed By: #### U MICRO, ERUR #### [facility] [address] [place] [address] Dr. Delmer Rea Nitrite Ql (U) Positive Abnormal NEGATIVE [facility] Comment on above: Performed By: #### U MICRO, ERUR #### [facility] [address] [place] [address] [address] Delmer Rea pH (U) 5.5 [pH] Normal 5-9 [facility] Comment on above: Performed By: #### U MICRO, ERUR #### [facility] [address] [place] [address] Dr. Delmer Rea SPEC GRAVITY 1.020 Normal 1.005-<=1.025 [facility] Comment on above: Performed By: #### U MICRO, ERUR #### [facility] [address] [place] [address] Dr. Delmer Rea UA PROTEIN TRACE Normal NEGATIVE/ TRACE [facility] Comment on above: Performed By: #### U MICRO, ERUR #### [facility] [address] [place] [address] Dr. Delmer Rea UR MICRO IND INDICATED Normal [facility] Comment on above: Performed By: #### U MICRO, ERUR #### [facility] [address] [place] [address] Dr. Delmer Rea Urobilinogen Qn (U) 0.2 {Juanita'U}/dL Normal 0.2 - 1. 0 [facility] Comment on above: Performed By: #### U MICRO, ERUR #### [facility] [address] [place] [address] Dr. Delmer Rea No Panel Informationon 07-18 [facility] POC Glucose Fingerstickon Glucose [Mass/Vol] 227 mg/dL High 65 - 105 mg/dL [facility] Interpretation and review of laboratory results Abnormal [facility] Glucose [Mass/Vol] 189 mg/dL High 65 - 105 mg/dL [facility] Interpretation and review of laboratory results Abnormal [facility] POCT glucoseOrdered By: Jason Swenson on 07-18-2022 Glucose [Mass/Vol] 189 mg/dL [facility] Interpretation and review of laboratory results Normal [facility] PROF CHEM 8 (BAS METB)on Anion gap [Moles/Vol] 13.6 mmol/L Normal [facility] Comment on above: Performed By: #### U MICRO, ERUR #### [facility] [address] [place] [address] [address] Delmer Rea Calcium [Mass/Vol] 9.6 mg/dL Normal 8.5-10.1 [facility] Comment on above: Performed By: #### U MICRO, ERUR #### [facility] [address] [place] [address] [address] Delmer Rea Chloride [Moles/Vol] 98 mmol/L Normal 98-107 [facility] Comment on above: Performed By: #### U MICRO, ERUR #### [facility] [address] [place] [address] [address] Delmer Rea CO2 [Moles/Vol] 26.0 mmol/L Normal 21.0-32.0 [facility] Comment on above: Performed By: #### U MICRO, ERUR #### [facility] [address] [place] [address] [address] Delmer Rea Creatinine [Mass/Vol] 1.45 mg/dL Critically high 0.55-1.02 [facility] Comment on above: Performed By: #### U MICRO, ERUR #### [facility] [address] [place] [address] [address] Delmer Rea EGFR-AF KITTITIAN 46 mL/min/1.73m2 Critically low >=60 [facility] Comment on above: Performed By: #### U MICRO, ERUR #### [facility] [address] [address] [address] Delmer Rea EGFR-NON AF KITTITIAN 38 mL/min/1.73m2 Critically low >=60 [facility] Comment on above: Performed By: #### U MICRO, ERUR #### [facility] [address] [place] [address] Dr. Delmer Rea Glucose [Mass/Vol] 314 mg/dL Critically high 74-106 [facility] Comment on above: Performed By: #### U MICRO, ERUR #### [facility] [address] [place] [address] Dr. Delmer Rea Potassium [Moles/Vol] 4.6 mmol/L Normal 3.5-5.1 [facility] Comment on above: Result Comment: spec imen slightly hemolyzed Performed By: #### U MICRO, ERUR #### [facility] [address] [place] [address] Dr. Delmer Rea Sodium [Moles/Vol] 133 mmol/L Critically low 136-145 [facility] Comment on above: Performed By: #### U MICRO, ERUR #### [facility] [address] [place] [address] Dr. Delmer Rea Urea nitrogen [Mass/Vol] 35.0 mg/dL Critically high 7.0-18.0 [facility] Comment on above: Performed By: #### U MICRO, ERUR #### [facility] [address] [place] [address] Dr. Delmer Rea Urea nitrogen/Creatinine [Mass ratio] 24.1 mg/mg Normal [facility] Comment on above: Performed By: #### U MICRO, ERUR #### [facility] [address] [place] [address] Dr. Delmer Rea PTon 07-18-2022 INR Coag (PPP) [Relative time] 0.9 {INR} Normal [facility] Comment on above: Result Comment: Therapeutic Range: Moderate Anticoagulant Intensity: INR = 2.0-3.0 High Anticoagulant Intensity: INR = 2.5-3.5 Performed By: #### A NAX, IFX, PHEP, FKLLC, PE #### [facility] [address] [place] [id number] [employer] Helper: Bala Skelton MD PT Coag (PPP) [Time] 10.0 s Normal 9.1-12.3 [facility] Comment on above: Performed By: #### A NAX, IFX, PHEP, FKLLC, PE #### [facility] [address] [place], [place] [id number] [employer] Helper: Bala Skelton MD Protime-INRon 07-18-2022 INR Coag (Bld) [Relative time] 0.9 {INR} [facility] Comment on above: Therapeutic Range: Moderate Anticoagulant Intensity: INR = 2.0-3.0 High Anticoagulant Intensity: INR = 2.5-3.5 PT Coag (PPP) [Time] 10 s [facility] URINE MICROSCOPIC ONLYon BACTERIA SMALL Abnormal NONE SEEN [facility] Comment on above: Performed By: #### U MICRO, ERUR #### [facility] [address] [place] [address] Dr. Delmer Rea Bacteria identified Cx Nom (U) INDICATED Normal [facility] Comment on above: Performed By: #### U MICRO, ERUR #### [facility] [address] [place] [address] Dr. Delmer Rea CAST NONE SEEN Normal NONE SEEN [facility] Comment on above: Performed By: #### U MICRO, ERUR #### [facility] [address] [place] [address] Dr. Delmer Rea Crystals LM Nom (Urine sed) NONE SEEN Normal NONE SEEN [facility] Comment on above: Performed By: #### U MICRO, ERUR #### [facility] [address] [place] [address] Dr. Delmer Rea Epithelial cells LM Ql (Urine sed) FEW Abnormal NONE SEEN /RARE [facility] Comment on above: Performed By: #### U MICRO, ERUR #### [facility] [address] [place] [address] Dr. Delmer Rea MUCOUS NONE SEEN Normal NONE SEEN [facility] Comment on above: Performed By: #### U MICRO, ERUR #### [facility] [address] [address] [address] Delmer Rea RBC 20-50 Abnormal 0-2 [facility] Comment on above: Performed By: #### U MICRO, ERUR #### [facility] [address] [address] [address] Delmer Rea WBC 10-20 Abnormal NONE SEEN [facility] Comment on above: Performed By: #### U MICRO, ERUR #### [facility] [address] [address] [address] Delmer Rea ALEXANDRE by IFAon 04-18-2022 Antinuclear Antibodies, IFA Negative Normal [facility] Comment on above: Result Comment: Nega tive <1:80 Borderline 1:80 Positive >1:80 ICAP nomenclature: AC-0 For more information about Hep-2 cell patterns use ANApatterns.org, the official website for the International Consensus on Antinuclear Antibody (ALEXANDRE) Patterns (ICAP). Performed By: #### U MICRO, ERUR #### [facility] [address] [place] [address] Dr. Delmer Rea ANTISTREPTOLYSIN O AB (ASO)o n 04-16-2022 Antistreptolysin O Ab 23.8 IU/mL Normal 0.0-200.0 [facility] Comment on above: Performed By: #### U MICRO, ERUR #### [facility] [address] [place] [address] Dr. Delmer Rea INSULINon 04-16-2022 Insulin 96.9 uIU/mL Critically high 2.6-24.9 [facility] Comment on above: Performed By: #### L IPA, DLDL, CON, LIPID, T7, CMP, TSH #### [facility] [address] [place] [address] Dr. Delmer Rea RHEUMATOID FACTORon 04-16-20 RA Latex Turbid. 13.5 IU/mL Normal <14.0 [facility] Comment on above: Performed By: #### L IPA, DLDL, CON, LIPID, T7, CMP, TSH #### [facility] [address] [place] [address] Dr. Delmer Rea BNPon 04-15-2022 Natriuretic peptide B (Bld) [Mass/Vol] 168.0 pg/mL Normal <=900.0 [facility] Comment on above: Performed By: #### L IPA, DLDL, CON, LIPID, T7, CMP, TSH #### [facility] [address] [place] [address] Dr. Delmer Rea CBC AUTO DIFFon 04-15-2022 BASO # 0.0 103/ul Normal 0.0-0.1 [facility] Comment on above: Performed By: #### L IPA, DLDL, CON, LIPID, T7, CMP, TSH #### [facility] [address] [place] [address] Dr. Delmer Rea Basophils/100 WBC (Bld) 0.4 % Normal 0.2-2.0 [facility] Comment on above: Performed By: #### L IPA, DLDL, CON, LIPID, T7, CMP, TSH #### [facility] [address] [place] [address] Dr. Delmer Rea EO # 0.1 103/ul Normal 0.0-0.7 [facility] Comment on above: Performed By: #### L IPA, DLDL, CON, LIPID, T7, CMP, TSH #### [facility] [address] [place] [address] Dr. Delmer Rea Eosinophils/100 WBC (Bld) 2.3 % Normal 0.9-7.0 [facility] Comment on above: Performed By: #### L IPA, DLDL, CON, LIPID, T7, CMP, TSH #### [facility] [address] [place] [address] Dr. Delmer Rea Erythrocyte distribution width (RBC) [Ratio] 11.9 % Normal 11.0-15.0 [facility] Comment on above: Performed By: #### L IPA, DLDL, CON, LIPID, T7, CMP, TSH #### [facility] [address] [place] [address] Dr. Delmre Rea Hematocrit (Bld) [Volume fraction] 37.8 % Normal 36.0-48.0 [facility] Comment on above: Performed By: #### L IPA, DLDL, CON, LIPID, T7, CMP, TSH #### [facility] [address] [place] [address] Dr. Delmer Rea Hemoglobin (Bld) [Mass/Vol] 12.7 g/dL Normal 12.0-16.0 [facility] Comment on above: Performed By: #### L IPA, DLDL, CON, LIPID, T7, CMP, TSH #### [facility] [address] [place] [address] Dr. Delmer Rea IG # 0.01 10e3/ul Normal 0.00-0.03 [facility] Comment on above: Performed By: #### L IPA, DLDL, CON, LIPID, T7, CMP, TSH #### [facility] [address] [place] [address] Dr. Delmer Rea IG % 0.2 % Normal 0.0-0.5 [facility] Comment on above: Performed By: #### L IPA, DLDL, CON, LIPID, T7, CMP, TSH #### [facility] [address] [place] [address] Dr. Delmer Rea LYMPH # 1.8 103/ul Normal 1.2-3.8 [facility] Comment on above: Performed By: #### L IPA, DLDL, CON, LIPID, T7, CMP, TSH #### [facility] [address] [place] [address] Dr. Delmer Rea Lymphocytes/100 WBC (Bld) 34.6 % Normal 20.5-60.0 [facility] Comment on above: Performed By: #### L IPA, DLDL, CON, LIPID, T7, CMP, TSH #### [facility] [address] [place] [address] Dr. Delmer Rea MANUAL DIFF REQ NO Normal [facility] Comment on above: Performed By: #### L IPA, DLDL, CON, LIPID, T7, CMP, TSH #### [facility] [address] [place] [address] Dr. Delmer Rea MCH (RBC) [Entitic mass] 28.7 pg Normal 26.7-34.0 [facility] Comment on above: Performed By: #### L IPA, DLDL, CON, LIPID, T7, CMP, TSH #### [facility] [address] [place] [address] Dr. Delmer Rea MCHC (RBC) [Mass/Vol] 33.6 g/dL Normal 29.9-35.2 [facility] Comment on above: Performed By: #### L IPA, DLDL, CON, LIPID, T7, CMP, TSH #### [facility] [address] [place] [address] Dr. Delmer Rea MCV (RBC) [Entitic vol] 85.5 fL Normal 81.0-99.0 [facility] Comment on above: Performed By: #### L IPA, DLDL, CON, LIPID, T7, CMP, TSH #### [facility] [address] [place] [address] Dr. Delmer Rea MONO # 0.5 103/ul Normal 0.3-0.8 [facility] Comment on above: Performed By: #### L IPA, DLDL, CON, LIPID, T7, CMP, TSH #### [facility] [address] [place] [address] Dr. Delmer Rea Monocytes/100 WBC (Bld) 8.6 % Normal 1.7-12.0 [facility] Comment on above: Performed By: #### L IPA, DLDL, CON, LIPID, T7, CMP, TSH #### [facility] [address] [place] [address] Dr. Delmer Rea NEUT # 2.8 103/ul Normal 1.4-6.5 [facility] Comment on above: Performed By: #### L IPA, DLDL, CON, LIPID, T7, CMP, TSH #### [facility] [address] [place] [address] Dr. Delmer Rea Neutrophils/100 WBC (Bld) 53.9 % Normal 43.0-75.0 [facility] Comment on above: Performed By: #### L IPA, DLDL, CON, LIPID, T7, CMP, TSH #### [facility] [address] [address] [address] Delmer Rea Platelet mean volume (Bld) [Entitic vol] 10.2 fL Normal 9.5-13.5 [facility] Comment on above: Performed By: #### L IPA, DLDL, CON, LIPID, T7, CMP, TSH #### [facility] [address] [address] [address] Delmer Rea PLT 326 103/ul Normal 150-450 [facility] Comment on above: Performed By: #### L IPA, DLDL, CON, LIPID, T7, CMP, TSH #### [facility] [address] [address] [address] Delmer Rea RBC 4.42 106/ul Normal 4.20-5.40 [facility] Comment on above: Performed By: #### L IPA, DLDL, CON, LIPID, T7, CMP, TSH #### [facility] [address] [place] [address] Dr. Delmer Rea WBC 5.2 103/ul Normal 4.0-11.0 [facility] Comment on above: Performed By: #### L IPA, DLDL, CON, LIPID, T7, CMP, TSH #### [facility] [address] [place] [address] Dr. Delmer Rea CRPon 04-15-2022 CRP [Mass/Vol] mg/L Normal <=1.0 [facility] Comment on above: Performed By: #### L IPA, DLDL, CON, LIPID, T7, CMP, TSH #### [facility] [address] [place] [address] Dr. Delmer Rea FREE THYROXINE INDEX T7on FTI 5.07 Critically high 1.30-4.50 [facility] Comment on above: Performed By: #### L IPA, DLDL, CON, LIPID, T7, CMP, TSH #### [facility] [address] [place] [address] Dr. Delmer Rea T3U 37.0 % Normal 30.0-39.0 [facility] Comment on above: Performed By: #### L IPA, DLDL, CON, LIPID, T7, CMP, TSH #### [facility] [address] [address] [address] Delmer Rea T4 [Mass/Vol] 13.70 ug/dL Normal 4.80-13.90 [facility] Comment on above: Performed By: #### L IPA, DLDL, CON, LIPID, T7, CMP, TSH #### [facility] [address] [address] [address] Delmer Rea GLYCOHEMOGLOBIN A1Con 2021 ADA RECOMMENDATION SEE BELOW Normal [facility] Comment on above: Result Comment: ADA RECOMMENDED LIMIT 4.0 - 6.0 ADA THERAPEUTIC TARGET < 7.0 ACTION SUGGESTED > 7.0 Performed By: #### L IPA, DLDL, CON, LIPID, T7, CMP, TSH #### [facility] [address] [place] [address] Dr. Delmer Rea Glucose [Mass/Vol] 174 mg/dL Normal [facility] Comment on above: Performed By: #### L IPA, DLDL, CON, LIPID, T7, CMP, TSH #### [facility] [address] [address] [address] Delmer Rea HbA1c (Bld) [Mass fraction] 7.7 % Critically high 4.5-6.2 [facility] Comment on above: Performed By: #### L IPA, DLDL, CON, LIPID, T7, CMP, TSH #### [facility] [address] [address] [address] Delmer Rea IRONon 04-15-2022 Iron [Mass/Vol] 84.0 ug/dL Normal 50.0-170.0 [facility] Comment on above: Performed By: #### U MICRO, ERUR #### [facility] [address] [address] [address] Delmer Rea LIPID PROFILEon 04-15-2022 CHOL-HDL RATIO NORM SEE BELOW Normal [facility] Comment on above: Result Comment: 3.3 - 4.4 LOW RISK 4.4 - 7.1 AVERAGE RISK 7.1 - 11.0 MODERATE RISK >11.0 HIGH RISK Performed By: #### L IPA, DLDL, CON, LIPID, T7, CMP, TSH #### [facility] [address] [address] [address] Delmer Rea Cholesterol [Mass/Vol] 239 mg/dL Critically high <=200 [facility] Comment on above: Performed By: #### L IPA, DLDL, CON, LIPID, T7, CMP, TSH #### [facility] [address] [address] [address] Delmer Rea Cholesterol in HDL [Mass/Vol] 43 mg/dL Normal 40-60 [facility] Comment on above: Performed By: #### L IPA, DLDL, CON, LIPID, T7, CMP, TSH #### [facility] [address] [address] [address] Delmer Rea Cholesterol in LDL [Mass/Vol] 131.8 mg/dL Normal [facility] Comment on above: Performed By: #### L IPA, DLDL, CON, LIPID, T7, CMP, TSH #### [facility] [address] [address] [address] Delmer Rea Cholesterol.total/Ch olesterol in HDL [Mass ratio] 5.6 {ratio} Normal [facility] Comment on above: Performed By: #### L IPA, DLDL, CON, LIPID, T7, CMP, TSH #### [facility] [address] [address] [address] Delmer Rea HDL NORMAL > or = 60 mg/dl - LO W CARDIOVASCULAR RISK <40 mg/dl - HIGH CARDIOVASCULAR RISK Normal [facility] Comment on above: Performed By: #### L IPA, DLDL, CON, LIPID, T7, CMP, TSH #### [facility] [address] [address] [address] Delmer Rea LDL CALC NORMAL SEE BELOW Normal [facility] Comment on above: Result Comment: <100 mg/dl OPTIMAL 100 - 129 mg/dl NEAR OR ABOVE OPTIMAL 130 - 159 mg/dl BORDERLINE HIGH 160 - 189 mg/dl HIGH >190 mg/dl VERY HIGH Performed By: #### L IPA, DLDL, CON, LIPID, T7, CMP, TSH #### [facility] [address] [address] [address] Delmer Rea Triglyceride [Mass/Vol] 321 mg/dL Critically high <=150 [facility] Comment on above: Performed By: #### L IPA, DLDL, CON, LIPID, T7, CMP, TSH #### [facility] [address] [address] [address] Delmer Rea VLDL CALC 64.2 mg/dL Normal [facility] Comment on above: Performed By: #### L IPA, DLDL, CON, LIPID, T7, CMP, TSH #### [facility] [address] [address] [address] Delmer Rea PROF 14(COMP METB)on 022 Albumin [Mass/Vol] 3.6 g/dL Normal 3.4-5.0 [facility] Comment on above: Performed By: #### L IPA, DLDL, CON, LIPID, T7, CMP, TSH #### [facility] [address] [place] [address] Dr. Delmer Rea Albumin/Globulin [Mass ratio] 0.9 {ratio} Normal [facility] Comment on above: Performed By: #### L IPA, DLDL, CON, LIPID, T7, CMP, TSH #### [facility] [address] [place] [address] Dr. Delmer Rea ALP [Catalytic activity/Vol] 98 U/L Normal 46-116 [facility] Comment on above: Performed By: #### L IPA, DLDL, CON, LIPID, T7, CMP, TSH #### [facility] [address] [address] [address] Delmer Rea ALT [Catalytic activity/Vol] 21 U/L Normal 14-59 [facility] Comment on above: Performed By: #### L IPA, DLDL, CON, LIPID, T7, CMP, TSH #### [facility] [address] [address] [address] Delmer Rea Anion gap [Moles/Vol] 15.8 mmol/L Normal [facility] Comment on above: Performed By: #### L IPA, DLDL, CON, LIPID, T7, CMP, TSH #### [facility] [address] [address] [address] Delmer Rea AST [Catalytic activity/Vol] 10 U/L Critically low 15-37 [facility] Comment on above: Performed By: #### L IPA, DLDL, CON, LIPID, T7, CMP, TSH #### [facility] [address] [address] [address] Delmer Rea Bilirubin [Mass/Vol] 0.6 mg/dL Normal 0.2-1.0 [facility] Comment on above: Performed By: #### L IPA, DLDL, CON, LIPID, T7, CMP, TSH #### [facility] [address] [address] [address] Delmer Rea Calcium [Mass/Vol] 9.4 mg/dL Normal 8.5-10.1 [facility] Comment on above: Performed By: #### L IPA, DLDL, CON, LIPID, T7, CMP, TSH #### [facility] [address] [address] [address] Delmer Rea Chloride [Moles/Vol] 105 mmol/L Normal 98-107 [facility] Comment on above: Performed By: #### L IPA, DLDL, CON, LIPID, T7, CMP, TSH #### [facility] [address] [address] [address] Delmer Rea CO2 [Moles/Vol] 26.2 mmol/L Normal 21.0-32.0 [facility] Comment on above: Performed By: #### L IPA, DLDL, CON, LIPID, T7, CMP, TSH #### [facility] [address] [place] [address] Dr. Delmer Rea Creatinine [Mass/Vol] 1.26 mg/dL Critically high 0.55-1.02 [facility] Comment on above: Performed By: #### L IPA, DLDL, CON, LIPID, T7, CMP, TSH #### [facility] [address] [address] [address] Delmer Rea EGFR-AF KITTITIAN 54 mL/min/1.73m2 Critically low >=60 [facility] Comment on above: Performed By: #### L IPA, DLDL, CON, LIPID, T7, CMP, TSH #### [facility] [address] [place] [address] Dr. Delmer Rea EGFR-NON AF KITTITIAN 45 mL/min/1.73m2 Critically low >=60 [facility] Comment on above: Performed By: #### L IPA, DLDL, CON, LIPID, T7, CMP, TSH #### [facility] [address] [place] [address] Dr. Delmer Rea Globulin (S) [Mass/Vol] 3.9 g/dL Normal [facility] Comment on above: Performed By: #### L IPA, DLDL, CNO, LIPID, T7, CMP, TSH #### [facility] [address] [place] [address] Dr. Delmer Rea Glucose [Mass/Vol] 125 mg/dL Critically high 74-106 [facility] Comment on above: Performed By: #### L IPA, DLDL, CON, LIPID, T7, CMP, TSH #### [facility] [address] [place] [address] Dr. Delmer Rea Potassium [Moles/Vol] 4.0 mmol/L Normal 3.5-5.1 [facility] Comment on above: Performed By: #### L IPA, DLDL, CON, LIPID, T7, CMP, TSH #### [facility] [address] [place] [address] Dr. Delmer Rea Protein [Mass/Vol] 7.5 g/dL Normal 6.4-8.2 [facility] Comment on above: Performed By: #### L IPA, DLDL, CON, LIPID, T7, CMP, TSH #### [facility] [address] [place] [address] Dr. Delmer Rea Sodium [Moles/Vol] 143 mmol/L Normal 136-145 [facility] Comment on above: Performed By: #### L IPA, DLDL, CON, LIPID, T7, CMP, TSH #### [facility] [address] [place] [address] Dr. Delmer Rea Urea nitrogen [Mass/Vol] 34.0 mg/dL Critically high 7.0-18.0 [facility] Comment on above: Performed By: #### L IPA, DLDL, CON, LIPID, T7, CMP, TSH #### [facility] [address] [address] [address] Delmer Rea Urea nitrogen/Creatinine [Mass ratio] 27.0 mg/mg Normal [facility] Comment on above: Performed By: #### L IPA, DLDL, CON, LIPID, T7, CMP, TSH #### [facility] [address] [place] [address] Dr. Delmer Rea TSHon 04-15-2022 TSH 0.009 uIU/mL Critically low 0.358-3.740 [facility] Comment on above: Performed By: #### L IPA, DLDL, CON, LIPID, T7, CMP, TSH #### [facility] [address] [place] [address] Dr. Delmer Rea TSH RANGE SEE BELOW Normal [facility] Comment on above: Result Comment: <0.3 4 UIU/ml HYPERTHYROID 0.34-5.60 UIU/ml EUTHYROID >5.60 UIU/ml HYPOTHYROID Performed By: #### L IPA, DLDL, CON, LIPID, T7, CMP, TSH #### [facility] [address] [place] [address] Dr. Delmer Rea URIC ACID SERUMon 04-15-2022 Urate [Mass/Vol] 7.1 mg/dL Critically high 2.6-6.0 [facility] Comment on above: Performed By: #### L IPA, DLDL, CON, LIPID, T7, CMP, TSH #### [facility] [address] [place] [address] Dr. Delmer Rea VITAMIN D 25 OHon 04-15-2022 VIT D 25-OH 23.8 ng/mL Normal [facility] Comment on above: Performed By: #### U MICRO, ERUR #### [facility] [address] [place] [address] Dr. Delmer Rea VIT D RANGES SEE BELOW Normal [facility] Comment on above: Result Comment: <20 ng/mL Vit D deficient 20 - <30 ng/mL Vit D insufficient 30 - 100 ng/mL Vit D sufficient >100 ng/mL Potential Toxicity Performed By: #### U MICRO, ERUR #### [facility] [address] [address] [address] Delmer Bowman 11-09-2021 CNPN Telephone (GENBMI) ASA THOMPSON ([id number]) 1970 F Date Time Provider Department 11/09/21 [...] Encounter Status:Closed by ABRAHAM PACHECO on 11/09/21 [facility] 10-05-2021 [facility]GENI[facility] ASA THOMPSON ([id number]) 1970 F Date Time Provider Department 10/05/21 ABRAHAM PACHECO [facility] During your visit today, we recorded the [...] Encounter Status:Closed by ABRAHAM PACHECO on 10/05/21 [facility] Gracie 07-29-2021 [facility] ([facility]) LUCASA SPANN ([id number]) 1970 F Date Time Provider Department 07/29/21 [...] (HCC) [E66.01] 06/21/2021 Encounter Status:Closed by ABRAHAM APCHECO on 07/29/21 [facility] ([employer]) ASA THOMPSON ([id number]) 1970 F Date Time Provider Department 07/14[facility] your visit today, we recorded the following information about you: Abraham Pacheco RN 07/14/2021 3:04 PM Addendum Follow up call placed to patient, no answer phone; left voice message with my call back phone number. [phone] Cancelled surgery scheduled for 07/15/21. No call [...] Status:Closed by ABRAHAM PACHECO on 07/14/21 Normal [facility] Telephone (GSPSMN) ASA THOMPSON ([id number]) 1970 F Date Time Provider Department 07/14/21 JEANNINE TAMEZ [facility] During your visit today, we recorded the following information about you: Jeannine Tamez, PhD 07/14/2021 1:02 PM Signed [facility] Attempted to contact [...] Encounter Status:Closed by JEANNINE TAMEZ on 07/14/21 [facility] CNPN Telephone (GENBMI) ASA THOMPSON ([id number]) 1970 F Date Time Provider Department 07/13/21 ABRAHAM PACHECOBritney During your visit today, we [...] Encounter Status:Closed by ABRAHAM PACHECO on 07/13/21 [facility] 07-08-2021 [facility] (GENBMI) ASA THOMPSON ([id number]) 1970 F Date Time Provider Department 07/08/21 ABRAHAM PACHECO GENI During your visit today, [...] by ABRAHAM PACHECO on [facility]/15/21 [facility] ASA THOMPSON ([id number]) 1970 F Date Time Provider Department 07/08/21 ABRAHAM PACHECO [employer] During your visit today, we recorded the [...] Encounter Status:Closed by ABRAHAM PACHECO on 07/08/21 [facility] Gracie 07-07-2021 CNPN Telephone [facility] ASA [id number]) 1970 F Date Time Provider Department 07/07/21 [...] Encounter Status:Closed by ABRAHAM PACHECO on 07/07/21 [facility]21 CNPN Telephone ([employer]) ASA THOMPSON ([id number]) 1970 F Date Time Provider Department 07/05/21 ABRAHAM PACHECO [facility] During your visit today, we recorded the [...] Encounter Status:Closed by ABRAHAM PACHECO on 07/06/21 [facility] Gracie 06-21-2021 [facility] ([employer]) ASA THOMPSON ([id number]) 1970 F Date Time Provider Department 06/21/21 [...] arrival time. Other Instructions Reviewed: Gave patient [phone] My Chart Support line phone number Skin [...] daily. - (more content not included)... [facility] (GENBMI) ASA THMOPSON ([id number]) 1970 F Date Time Provider Department 05/25/21 ABRAHAM PACHECO [facility] During your visit today, we recorded the following information about you: Abraham Pacheco RN 05/25/2021 4:23 PM Signed [facility] COORDINATION SURGERY APPROVAL CALL Received e-mail confirmation of insurance approval for bariatric surgery.Pre-operative call placed to the patient, this RN spoke with patient and agreed upon a surgery date of July 15 2021. Surgical episode request sent to [facility] surgery scheduling. -Patient instructed to start pre-op [...] instructed to fax FMLA forms to medical biller and allow 7-10 days for completion. Radha [...] Status:Closed by ABRAHAM PACHECO on 05/25/21 Normal [facility] 04-26-2021 CNCO Letter Text Normal [facility] CNCOon 04-21-2021 CNCO Letter Text Normal [facility]CO[facility] 04-12-2021 CNCO Letter Text Normal [facility] Vital Signs Date Time Vital Sign Value Performing Clinician Facility 12-27-2022 15:00-0500 Body height 160.02 cm Aime Capone Other [facility] Other 12-27-2022 15:00-0500 Body mass index (BMI) [Ratio] 44.63 kg/m2 Aime Capone Other [facility] Other 12-27-2022 15:00-0500 Body weight 114.31 kg Aime Capone Other [facility] Other 12-27-2022 15:00-0500 Diastolic blood pressure 61 mm[Hg] Aime Capone Other [facility] Other 12-27-2022 15:00-0500 Respiratory rate 18 /min Aime Capone Other [facility] Other 12-27-2022 15:00-0500 SaO2% (BldA) [Mass fraction] 97 % Aime Capone Other [facility] Other 12-27-2022 15:00-0500 Systolic blood pressure 127 mm[Hg] Aime Capone Other [facility] Other 07-26-2022 10:45-0400 Body temperature 98.2 [degF] Bishnu Horner MD Work Phone: [employer] 07-26-2022 10:45-0400 Diastolic blood pressure 65 mm[Hg] Bishnu Horner MD Work Phone: [employer] 07-26-2022 10:45-0400 Heart rate 84 /min Bishnu Horner MD Work Phone: [employer] 07-26-2022 10:45-0400 Respiratory rate 16 /min Bishnu Horner MD Work Phone: [employer] 07-26-2022 10:45-0400 SaO2% (BldA) [Mass fraction] 98 % Bishnu Horner MD Work Phone: [employer] 07-26-2022 10:45-0400 Systolic blood pressure 161 mm[Hg] Bishnu Horner MD Work Phone: [facility] [employer] 07-25-2022 18:02-0400 Body height 165.1 cm Bishnu Horner MD Work Phone: [employer] 07-25-2022 18:02-0400 Body mass index (BMI) [Ratio] 39.94 kg/m2 Bishnu Horner MD Work Phone: [employer] 07-25-2022 18:02-0400 Body weight 108.86 kg Bishnu Horner MD Work Phone: [facility] [employer] 07-22-2022 11:28-0400 Body temperature 98.2 [degF] Aime Bird MD [facility] [employer] 07-22-2022 11:28-0400 Diastolic blood pressure 72 mm[Hg] Aime Bird MD [facility] [employer] 07-22-2022 11:28-0400 Heart rate 92 /min Aime Bird MD [facility] [employer] 07-22-2022 11:28-0400 Respiratory rate 12 /min Aime Bird MD [facility] [employer] 07-22-2022 11:28-0400 SaO2% (BldA) [Mass fraction] 96 % Aime Bird MD [facility] [employer] 07-22-2022 11:28-0400 Systolic blood pressure 155 mm[Hg] Aime Bird MD [facility] [employer] 07-18-2022 20:54-0400 Body height 165.1 cm Aime Bird MD [facility] [employer] 07-18-2022 20:54-0400 Body mass index (BMI) [Ratio] 42.56 kg/m2 Aime Bird MD [facility] [employer] 07-18-2022 20:54-0400 Body weight 116 kg Aime Bird MD [facility] [employer] Encounters Encounter Date Encounter Type Care Provider Facility Start: 11-01-2024 End: 11[facility]01[facility] Start: 09-02-2024 End: 09-02-2024 ambulatory [facility] Start: 08-03-2024 End: 08-06-2024 Evaluation and management of inpatient GARRY RAMOS [facility] Start: 03-10-2023 End: 03-11-2023 ambulatory AIME EDMONDSONS Facility:H1 Start: 01-03-2023 ambulatory AIME CAPONE Facility:H 1 Start: 12-28-2022 End: 12-29-2022 ambulatory AIME CAPONE Facility:H1 Start: 12-27-2022 End: 12-27-2022 [facility] [employer] Other Start: 12-27-2022 Office outpatient ne w [facility] Start: 12-01-2022 End: 12-02-[address] GARRY RAMOS . Facility:H1 Start: 11-26-2022 End: 11-26-[address] GARRY RAMOS . Facility:[facility]1 Start: 11-25-2022 End: 11-26-[address] GARRY RAMOS . Facility:[facility]1 Start: 09-23-[address] GARRY RAMOS . Facili ty:H1 Start: 09-12-2022 End: 09-12-[address] GARRY RAMOS . Facility:H1 Start: 08-05-2022 End: 08-08-2022 ambulatory CHRISTIJARROD CHANCE [facility] Start: 07-25-2022 End: 07-26-2022 ambulatory GARRY RAMOS [facility] Start: 07-25-2022 End: 07-26-2022 Emergency department patient visit Bishnu Horner MD Work Phone: [facility] 3C Observation Comment on above: Nephrostomy complica tion (HCC) (Primary Dx) Start: 07-18-2022 End: 07-22-2022 Evaluation and management of inpatient CHINO DEMPSEY [facility] Start: 07-18-2022 End: 07-22-2022 Evaluation and management of inpatient Aime Bird MD [facility] 5C Stepdown Comment on above: Kidney stone (Primar y Dx); Acute pyelonephritis; Left renal atrophy; Staghorn renal calculus; OMAR (acute kidney injury) ([facility] Start: 07-18-2022 End: 07-18-[address] GARRY RAMOS . Facility: Start: 04-15-2022 End: 04-16-[address] GARRY RAMOS . Facility: Start: 04-01-[address] GARRY RAMOS . Facili ty:H1 Start: 02-15-2019 End: 02-22-2019 ambulatory GARRY RAMOS Facility:[facility] Procedures Date Procedure Procedure Detail Performing Clinician Start: 07-26-2022 Glucose blood reagent strip Paloma Arceo MD Work Phone: Start: 07-26-2022 Remove int dwell ure teral stent transurethral Paloma Arceo MD Work Phone: Start: 07-26-2022 Prothrombin time Oscar Strbenita DO Work Phone: Start: 07-25-2022 Radiologic exam abdo men 1 view Oscar Strbenita DO Work Phone: Start: 07-22-2022 Glucose blood [...] Infectious Diseases Urban Noriega MD [address] [facility]. [address] [place] [address] [facility]. Start: 08-03-2022 End: 07-20-2023 NM KIDNEY W FLOW AND FUNCTION W PHARMACOLOGICAL INTERVENTION NM KIDNEY W FLOW AND FUNCTION W PHARMACOLOGICAL INTERVENTION Imaging Routine Left renal atrophy Staghorn renal calculus Expected: 08/03/2022, Expires: 07/20/2023 [employer] Work Phone: Comment on above: Expected: 08/03/2022 , Expires: 07/20/2023 Start: 07-29-2022 End: 07-22-2023 Basic metabolic 2000 panel - Serum or Plasma Basic Metabolic Panel Lab Routine OMAR (acute kidney injury) (HCC) Expected: 07/29/2022, Expires: 07/22/2023 [employer] Work Phone: Comment on above: Expected: 07/29/2022 , Expires: 07/22/2023 Start: 07-07-2022 Influenza vaccination Flu vaccine (# 1) [employer] Start: 2021 Screening for malign ant neoplasm of breast Breast cancer screen [employer] Start: 2021 Shingles vaccine (1 of 2) Shingles vaccine (1 of 2) [employer] Start: 2016 Screening for malign ant neoplasm of colon [employer] Start: 2001 Screening for malign ant neoplasm of cervix [employer] Start: 1992 Screening for malign ant neoplasm of cervix Pap smear [facility] Start: 1990 DTaP/Tdap/Td vaccine (1 - Tdap) DTaP/Tdap/Td vaccine (1 - Tdap) [facility] Start: 1990 Hepatitis B vaccine (1 of 3 - Risk 3-dose series) Hepatitis B vaccine (1 of 3 - Risk 3-dose series) [facility] Start: 1989 Diabetic retinal exam Diabetic retin al exam [facility] Start: 1989 Urine screening for protein Diabetic microalbuminuria test [facility] Start: 1986 HIV screening HIV screen [facility] [employer] Start: 1983 Depression Monitoring Depression Mon itoring [facility] Start: 1981 Diabetic foot examination Diabetic foot exam [facility] Start: 1981 Hemoglobin A1c measurement A1C test (Diabetic or Prediabetic) [facility] Start: 1981 Lipid panel Lipids [facility] [employer] Start: 1977 Pneumococcal 0-64 ye ars Vaccine (1 - PCV) Pneumococcal 0-64 years Vaccine (1 - PCV) [facility] Start: 03-26-1972 COVID-19 Vaccine (#1) COVID-19 Vacci ne (#1) [facility] End: 08-01-2022 Basic Metabolic Panel w/ Reflex to MG Basic Metabolic Panel w/ Reflex to MG Lab Routine Daily for 14 Occurrences starting 07/19/2022 until 08/01/2022, 3 completed [facility] [employer] Work Phone: Comment on above: Daily for 14 Occurre nces starting 07/19/2022 until 08/01/2022, 3 completed Culture, Blood 1 [facility] [employer] Work Phone: Culture, Blood 1 Culture, Blood 1 Microbiology STAT 07/20/2022 4:26 AM EDT [facility] [employer] Phone: Culture, Blood 1 [facility] [employer] Work Phone: Culture, Blood 2 Culture, Blood 2 Microbiology STAT 07/20/2022 4:26 AM EDT [employer] Phone: Glucose [Mass/volume ] in Serum or Plasma [employer] Phone: Comment on above: 4X Daily (AC & HS) u ntil discontinued starting 07/18/2022, 1 completed As Needed until disc ontinued starting 07/18/2022 Glucose [Mass/volume ] in Serum or Plasma POCT Glucose Point of Care Testing STAT As Needed until discontinued starting 07/26/2022 [employer] Phone: Comment on above: As Needed until disc ontinued starting 07/26/2022 Oxygen therapy [Mini mum Data Set] Initiate Oxygen Therapy Protocol Respiratory Care Routine As Needed until discontinued starting 07/18/2022 [employer] Phone: Comment on above: As Needed until disc ontinued starting 07/18/2022 Oxygen therapy [Mini mum Data Set] Initiate Oxygen Therapy Protocol Respiratory Care Routine Daily until discontinued starting 07/25/2022 [employer] Phone: Comment on above: Daily until disconti nued starting 07/25/2022 Immunizations Immunization Date Immunization Notes Care Provider Rick mcginnis 08-19-2016 tetanus toxoid, reduced diphtheria toxoid, and acellular pertussis vaccine, adsorbed Aziz Bakhous Other [employer] Other Payers Date Payer Category Payer Unknown [id number] 2.16.8 [id number] 1970 Unknown [id number] 2.16.8 [id number] 1970 Unknown [id number] 2.16. [id number] 1971 Unknown [id number] 2.16. [id number] 1971 Unknown [id number] 2.16.84 [id number] 1971 Unknown [id number] 2.16.84 [id number] 1971 Unknown [id number] 2.16.84 [id number] 1971 Unknown [id number] 2.16.84 [id number] 1971 Unknown [id number] 2.16.84 [id number] 1971 Unknown [id number] 2.16.84 0.1.546878.3.579.2.593 1971 Unknown [id number] 2.16.84 0.1.287902.3.579.2.593 1971 Unknown [id number] 2.16.84 0.1.205350.3.579.2.593 1971 Unknown [id number] 2.16.84 [id number] 1971 Unknown [id number] 2.16.84 0.1.203490.3.579.2.593 1971 Unknown [id number] 2.16.84 [id number] 1971 Unknown [id number] 2.16.8 [id number] 1958 Self-pay [id number] 1959 Unknown [id number] 1959 Unknown [id number] Self-pay Self Pay [id number] Unknown [id number] Social History Date Type Detail Facility Tobacco smoking status UTIS Unknown if ever smoked [facility] Start: 1970 Sex Assigned At Female F [facility] Tobacco smoking status NHIS Tobacco smoking consumption unknown [employer] Phone: Start: 1970 Sex Assigned At Not on file [employer] Phone: Start: 07-08-2022 End: 07-25-2022 Exposure to SARS-CoV-2 (event) Not sure [facility] [employer] Sex Assigned At Sex Assigned At Bir th [facility] [employer] Other Goals Date Patient Goal Desired Activity /State Clinical Notes 03-31-2021 to 11-01-2024 Note Date & Type Note Facility 11-01-2024 Note H&P reviewed. The pa juli was examined and there are no changes to the H&P. The procedure was explained to the patient. The risks and benefits of the procedure were explained to the patient who showed understanding and with full capacity elected to proceed with the procedure. All questions were addressed and answered. [facility] Cardiology Clinic Note Chief Complaint: New patient here to establish care. Ref from Dr. Ramos for abnormal echo performed at [facility] last month while inpatient. She was [...] Asa Thompson Date of : 1970 Room: Encounter date: 08/06/24 Hospital Day: 4 DATE OF ADMISSION: 08/03/2024 DATE OF DISCHARGE:08/06/2024 DISCHARGE DIAGNOSES Principal Problem: Acute nonintractable headache, unspecified headache type Active Problems: Type 2 diabetes mellitus with neurologic complication, with long-term current use of insulin ([facility]) Essential hypertension Mixed hyperlipidemia Complicated headache syndromes Hyperglycemia OMAR (acute kidney injury) ([facility]) Vision changes Hypomagnesemia Cerebrovascular accident (CVA) due to embolism of precerebral artery ([facility]) Update 09/02/2024: She has had no further [...] of left kidney, CVA (cerebral vascular accident) ([facility]) (2021), Diabetes mellitus ([facility]), and Kidney stone. Surgical History She has a past surgical history that includes Hysterectomy; Cystoscopy w/ ureteral stent placement (Left, 07/26/2022); and Other surgical history (10/20/2022). Social History She reports that she has never smoked. She has never used smokeless tobacco. She reports that she does not currently use alcohol. She reports that she does not currently use drugs. Family History Family History No family history on file. Allergies Dilaudid [hydromorphone], Morphine, and Penicillins Medications Current Medications Current Outpatient Medications: aspirin 81 mg [...] NPH and regular human (HumuLIN 70/30 U-100 I (more content not included)... [facility] 11-01-2024 Note Patient: Asa valle Procedure Information Date/Time: 11/01/24 1030 Procedure: TRANSESOPHAGEAL ECHO (ANGEL) Location: [facility] Vascular Lab Clinical information reviewed: Allergies Meds Physical Exam Airway Mallampati: III TM distance: >3 FB Neck ROM: full Cardiovascular Rhythm: regular Rate: normal Dental Pulmonary Breath sounds clear to auscultation Abdominal Anesthesia Plan Additional Equipment Requests [facility] 09-02-2024 Note [facility] Cardiology Clinic Note Chief Complaint: New patient here to establish care. Ref from Dr. Ramos for abnormal echo performed at [facility] last month while inpatient. She was [...] Asa Thompson Date of : 1970 Room: [facility] Encounter date: 08/06/24 Hospital Day: 4 DATE OF ADMISSION: 08/03/2024 DATE OF DISCHARGE:08/06/2024 DISCHARGE DIAGNOSES Principal Problem: Acute nonintractable headache, unspecified headache type Active Problems: Type 2 diabetes mellitus with neurologic complication, with long-term current use of insulin ([facility]) Essential hypertension Mixed hyperlipidemia Complicated headache syndromes Hyperglycemia OMAR (acute kidney injury) ([facility]) Vision changes Hypomagnesemia Cerebrovascular accident (CVA) due to embolism of precerebral artery ([facility]) Update 09/02/2024: She has had no further [...] (cerebral vascular accident) (CMS/HCC) (2021), Diabetes mellitus (CMS/HCC), and Kidney stone. Surgical History She has [...] , Rfl: met (more content not included)... [facility] 12-27-2022 Evaluation note Encounter Date Diagnosis [...] pyonephritis. Patient follows with urology clinic at [facility] Dec, Solitary kidney, acquired (ICD-10 - [...] home and to follow a low-salt diet [employer] Other 09-20-2022 NotePROCEDURE: MARTINE LILLY NEPHROSTMY CATH [...] detailed explanation of the procedure including risks. Clanton protocol was observed. Sterile gowns, masks, hats and gloves utilized for maximal sterile barrier. The patient was placed in the prone position on the fluoroscopy table, and the existing left nephroureteral stent and flank were prepped and draped in sterile manner. The stent tubing was noted to be broken with the lumen exposed near the level of the skin. A cow washer image demonstrated the distal loop approximating the [...] wire. Under fluoroscopic guidance, a new 8 Irish x 22 cm nephroureteral stent was advanced over the wire; the distal loop formed in the bladder, but the proximal loop did not form in the renal pelvis. Therefore, this catheter was removed over wire, and a new 8 Irish x 24 cm nephroureteral stent was advanced [...] Signed by: Bishnu Alan MD 07/26/22 [facility]-20[facility] NotePROCEDURE: IR CHG NEPHROSTMY CATH PROC 07/26/2022 [...] detailed explanation of the procedure including risks. Clanton protocol was observed. Sterile gowns, masks, hats and gloves utilized for maximal sterile barrier. The patient was placed in the prone position on the fluoroscopy table, and the existing left nephroureteral stent and flank were prepped and draped in sterile manner. The stent tubing was noted to be broken with the lumen exposed near the level of the skin. A cow washer image demonstrated the distal loop approximating the [...] wire. Under fluoroscopic guidance, a new 8 Irish x 22 cm nephroureteral stent was advanced over the wire; the distal loop formed in the bladder, but the proximal loop did not form in the renal pelvis. Therefore, this catheter was removed over wire, and a new 8 Irish x 24 cm nephroureteral stent was advanced over the wire. The distal loop formed in the expected position of the bladder, and the proximal loop partially formed in the renal pelvis. Contrast injection confirmed appropriate positioning. The stent was then attached to the skin with a 2-0 monofilament suture. The patient tolerated the procedure well. COMPLICATIONS: None immediately apparent MHPN RIS [id number] History of Present illness Narrative* Paloma Arceo MD - 07/26/2022 1:42 PM EDT [facility] CDU / OBSERVATION ENCOUNTER [...] going to IR this morning for replacement. [facility] observation unit for nephrostomy tube placement. Patient reassessed on arrival to the floor. Paloma Arceo MD Attending Emergency Physician * Song Sharif - 07/26/2022 12:50 AM EDT SPIRITUAL CARE DEPARTMENT - [facility] PROGRESS NOTE Shift date: 07.25.2022 Shift day: Monday Shift # 2 Room # 10/17 Name: Asa Thompson Alevism: unknown Place of episcopal: unknown Referral: Routine Visit Admit Date & Time: 07/25/2022 5:43 PM Assessment: Asa Thompson is a 51 y.o. female in the hospital with pain. Upon entering the room principal technical writer observes patient in pain and states that she is looking for a nurse to provide pain management. Patient appears to be coping otherwise. Intervention: Waterproofing Mixer introduced self and title as instrument specialist Waterproofing Mixer offered space for the patient to express feelings, needs, and concerns and provided a ministry presence. Outcome: Patient requests nursing assistance for pain. Ekg Technician attempted to follow up with nursing staff. Plan: Chaplains will remain available to offer spiritual and emotional support as needed. . Spiritual Care Department [facility] [phone] 07/25/22 2310 Encounter Summary Service Provided For: Patient Referral/Consult From: Rounding Support System Family members Last Encounter 07/25/22 Complexity of Encounter Moderate Begin Time 2309 End Time 2324 Total Time Calculated 15 min Encounter Type Initial Screen/Assessment Assessment/Intervention/Outcome Assessment Compromised coping Intervention Active listening;Discussed illness injury and it s impact;Explored/Affirmed feelings, thoughts, concerns Outcome Expressed feelings, needs, and concerns;Venting emotion documented in this encounterBON [employer] Work Phone: [phone] 547-174409-16-2022 History of Present illness Narrative* Christine Campa RN - 07/22/2022 4:32 PM EDT Waterproofing Mixer went over all discharge paperwork with patient and Shaq bedside. Patient denies any further questions or concerns at this time. Patient also has a BMP script to get done within 1 week and have results sent to PCP. Waterproofing Mixer also called [facility] pharmacy in [place] and verified E-prescriptions were sent. Patient also [...] Campa RN - 07/22/2022 3:47 PM EDT Waterproofing Mixer was unable to set up follow up appointment for Dr. Chino Dempsey (urologist) on discharge d/tthe office being closed. Waterproofing Mixer explained to the patient that she will need to call [facility] to schedule that appointment with in 2 [...] Patient : Asa Thompson; 51 y.o. Location: [facility]05 Attending: Livia Cantrell MD Admit Date: 07/18/2022 [...] Date/Time NITRU NEGATIVE 07/20/2022 03:05 PM COLORU [place] 07/20/2022 03:05 PM PHUR 5.0 07/20/2022 03:05 [...] as outpatient as well, patient lives near [facility] and will likely ask her PCP to get nephrological referral otherwise if she wants she can follow-up in the clinic with us as well. She should get BMP results done in 1 week and results faxed to PCP. Nutrition Please ensure that patient is on a renal diet/TF. Avoid nephrotoxic drugs/contrast exposure. Shahid Do MD [facility] This note is created with the assistance of a speech-recognition program. While intending to generate a document that actually reflects the content of the visit, no guarantees can be provided that every mistake has been identified and corrected by editing. * Urban Noriega MD - 07/22/2022 10:27 AM EDT Images from the original note were not included. [facility] - Progress Note Today's Date and [...] urine cultures: No growth Urine culture from [place]: E coli, multi-sensitive Patient will need treatment [...] lithotripsy in the future. Infection Control Recommendations Clanton Precautions Antimicrobial Stewardship Recommendations Simplification of therapy [...] is a 51-year-old female who presents to [place] with a chief complaint of left flank pain that started at 4 AM on 07/18/2022. Patient states that the pain is intense and is radiating towards her left groin. Patient denies any fever, burning urination, urgency frequency, vomiting, loose stool, any shortness of breath or chest discomfort. Patient went to [place] and had a CT imaging done. 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 Urinalysis positive for leukocytes and nitrates and blood. White blood cell count 13.7 and creatinine of 1.45. Patient needed urology evaluation and nephrostomy tube placement . She was transferred to [place]. Urology was consulted. Urology plan for IR [...] Blood and urine cultures: No growth at [facility] Urine culture at [place] with E coli Patient reports tolerating Cipro [...] Cultures: Urine: 07-18-22: E coli- Multi-sensitive at [place] 07/18/2022: No growth 07/19/2022: Urinalysis: Turbid, glucose [...] NEPHROSTOMY PERCUTANEOUS LEFT 07/19/2022 Noman Mullen MD [facility] SPECIAL PROCEDURES Medications: hydrALAZINE 25 mg Oral [...] the procedure including risks, benefits, and alternatives. Clanton protocol was followed. The patient's flank was [...] into the urinary bladder using a 4 Irish Kumpe the catheter; the Glidewire was exchanged [...] puncture of the lower pole calyx, 4 Irish Kumpe the catheter manipulation and glidewire extension into the urinary bladder. Subsequent images show the nephroureteral stent in satisfactory position. Impression Successful percutaneous left nephroureteral stent placement via lower pole, past a large staghorn calculus, with distal pigtail tip position in the urinary bladder, as above. Findings were discussed with KASH CLAY at 4:09 pm on 07/19/2022. Medical Decision [facility]Gt[facility]: Medical Decision Making-Other: Note: Labs, medications, radiologic studies were reviewed with personal review of films Large amounts of data were reviewed Discussed with nursing Staff, senior production planner Infection Control and Prevention measures reviewed All prior entries were reviewed Administer medications as ordered Prognosis: Good Discharge planning reviewed Follow up as outpatient. Thank you for allowing us to participate in the care of this patient. Please call with questions. Urban Noriega MD * Keo Guevara MD - 07/22/2022 7:45 AM EDT Physician Progress Note PATIENT: ASA THOMPSON CSN #: [id number] : 1970 ADMIT DATE: 07/18/2022 3:19 PM [...] Thank you, Judith LUNA,RN, CDI email - [email or web address] cell- [phone] office hours [id number] Options provided: -- Sepsis, [...] from the original note were not included. [facility] Internal Medicine Teaching Residency Program Inpatient Daily Progress Note Patient: Asa Thompson Date of : 1970 Acct: [id number] Room: [address] [place] [address]- Admit date: 07/18/2022 Today's date: 07/22/22 Number [...] positive for E. Coli- multi sensitive at [place] Lactic acid-1.5-2.3 Urology on board-okay to be [...] breath or chest discomfort. 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 Patient needed urology evaluation and nephrostomy tube placement so transferred to the [place]. Urology consulted plan for IR tomorrow. patient [...] Keo Guevara MD Internal Medicine Resident, PGY-1 [facility]; [place], [place] 07/22/2022, 7:44 AM Associated attestation - Livia Cantrell MD - 07/22/2022 2:02 PM EDT Attending Physician Statement I have discussed the case of Asa Thompson, including pertinent history and exam findings with the resident/fellow/medical student/ECONOMIC ADVISER/PA. I have seen and examined the patient and the trevizo elementsof the encounter have been performed by me. I agree with the assessment, plan and orders as documented by the resident/fellow/medical student/ECONOMIC ADVISER/PA With changes made to the note as [...] been improving Microbiologic data remains negative at [facility] activity Percutaneous nephrostomy tube is draining Discharge [...] Date/Time NITRU NEGATIVE 07/20/2022 03:05 PM COLORU Addington 07/20/2022 03:05 PM PHUR 5.0 07/20/2022 03:05 [...] 1:36 PM EDT Physical Therapy Facility/Department: [address] [place] Physical Therapy Initial Assessment Name: Asa Goyal Cariharry : 1970 Date of Service: 07/21/2022 Chief [...] Ambulation Assistance: Independent Transfer Assistance: Independent Active Die Cutter Diamond: Yes Mode of Transportation: [facility] Occupation: Unemployed Leisure & Hobbies: Everything -staying [...] 12:07 PM EDT Occupational Therapy Facility/Department: [address] [place] Occupational Therapy Initial Assessment Name: [...] Ambulation Assistance: Independent Transfer Assistance: Independent Active Die Cutter Diamond: Yes Mode of Transportation: SUV Occupation: Unemployed [...] were not included. [facility] - Progress Note Today's Date and [...] up to a week. Infection Control Recommendations Clanton Precautions Antimicrobial Stewardship Recommendations Simplification of therapy [...] is a 51-year-old female who presents to [place] with a chief complaint of left flank pain that started at 4 AM on 07/18/2022. Patient states that the pain is intense and is radiating towards her left groin. Patient denies any fever, burning urination, urgency frequency, vomiting, loose stool, any shortness of breath or chest discomfort. Patient went to [place] and had a CT imaging done. 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 Urinalysis positive for leukocytes and nitrates and blood. White blood cell count 13.7 and creatinine of 1.45. Patient needed urology evaluation and nephrostomy tube placement . She was transferred to [place]. Urology was consulted. Urology plan for IR [...] without long-term current use of insulin ([facility]) Past Surgical History: Past Surgical History: Procedure Laterality Date IR NEPHROSTOMY PERCUTANEOUS LEFT 07/19/2022 IR NEPHROSTOMY PERCUTANEOUS LEFT 07/19/2022 Noman Mullen MD [facility] Medications: insulin lispro 0-16 Units [...] SEDATION 07/19/2022 HISTORY: ORDERING SYSTEM PROVIDED HISTORY: lincolnorn TECHNOLOGIST PROVIDED HISTORY: staghorn Is the patient [...] the procedure including risks, benefits, and alternatives. Clanton protocol was followed. The patient's flank was [...] into the urinary bladder using a 4 Irish Kumpe the catheter; the Glidewire was exchanged [...] puncture of the lower pole calyx, 4 Irish Kumpe the catheter manipulation and glidewire extension into the urinary bladder. Subsequent images show the nephroureteral stent in satisfactory position. Impression Successful percutaneous left nephroureteral stent placement via lower pole, past a large staghorn calculus, with distal pigtail tip position in the urinary bladder, as above. Findings were discussed with KASH CLAY at 4:09 pm on 07/19/2022. Medical Decision Ajfniu-Cjfpwcbd-Pnxbw: Medical Decision Making-Other: Note: Labs, medications, radiologic studies were reviewed with personal review of films Large amounts of data were reviewed Discussed with nursing Staff, senior production planner Infection Control and Prevention measures reviewed All prior entries were reviewed Administer medications as ordered Prognosis: Good Discharge planning reviewed Follow up as outpatient. Thank you for allowing us to participate in the care of this patient. Please call with questions. Urban Noriega MD * Phillip Garrett MD - 07/21/2022 8:22 AM EDT Images from the original note were not included. [facility] Internal Medicine Teaching Residency Program Inpatient Daily Progress Note Patient: Asa Thompson Date of : 1970 Acct: [id number] Room: [facility]05-01 Admit date: 07/18/2022 Today's date: 07/21/22 Number [...] breath or chest discomfort. 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 Patient needed urology evaluation and nephrostomy tube placement so transferred to the [place]. Urology consulted plan for IR tomorrow. patient [...] time PT/OT/SW-consulted we will follow-up Discharge Planning: assistant food service manager consulted Phillip Garrett MD Internal Medicine Resident, PGY-1 [facility]; [place], [place] 07/21/2022, 8:22 AM Associated attestation - Livia Cantrell MD - 07/21/2022 8:43 PM EDT Attending Physician Statement I have discussed the case of Asa Thompson, including pertinent history and exam findings with the resident/fellow/medical student/ECONOMIC ADVISER/PA. I have seen and examined the patient and the trevizo elementsof the encounter have been performed by me. I agree with the assessment, plan and orders as documented by the resident/fellow/medical student/ECONOMIC ADVISER/PA With changes made to the note as [...] 11:26 PM EDT SPIRITUAL CARE DEPARTMENT - [facility] PROGRESS NOTE Shift date: 07/20/22 Shift day: Monday Shift # 2 Room # 0541/0541-01 Name: Asa Thompson Alevism: Place of episcopal: Referral: Routine Visit Admit Date & Time: 07/18/2022 3:19 PM Assessment: Asa Thompson is a 51 y.o. female Intervention: Waterproofing Mixer introduced self and title as instrument specialist. Patient did not appear to mind instrument specialist presence. Waterproofing Mixer offered space for patient to express feelings, needs, and concerns and provided a ministry presence. Patient appeared to be resting and coping. Outcome: While gonzález/spirituality were not discussed, patient appeared receptive to instrument specialist presence.3 Plan: Chaplains will remain available to offer spiritual and emotional support as needed. . Spiritual Care Department [facility] [phone] * TERRY BERGMAN - 07/20/2022 9:30 PM EDT Orders received for patients high BP * TERRY BERGMAN - 07/20/2022 9:08 PM EDT Notified concrete pointer resident for internal medicine of patients current [...] from the original note were not included. [facility] Internal Medicine Teaching Residency Program Inpatient Daily Progress Note Patient: Asa Thompson Date of : 1970 Acct: [id number] Room: [address] [place] [address] Admit date: 07/18/2022 Today's date: 07/20/22 Number of days in the hospital: 2 SUBJECTIVE Admitting Diagnosis: Calculous pyelonephritis CC: Left flank pain Pt examined at bedside. Chart & results reviewed. No acute event overnight Patient remained afebrile hemodynamically stable Pain better controlled with pain meds IR guided left percutaneous nephrostomy tube placement yesterday evening-output 500 so far WBC-12.3-7.1-10.2 Creatinine 1.65-1.71-2.11 Mgbjxj-162-215-corrected sodium 133 Lactic acid-3.8 Glucose-416 ROS: Constitutional: [...] breath or chest discomfort. 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 Patient needed urology evaluation and nephrostomy tube placement so transferred to the [place]. Urology consulted plan for IR tomorrow. patient [...] BID Continuous Infusions: sodium chloride Stopped (07/19/22 9773) dextrose sodium chloride 100 mL/hr at 07/20/22 8721 PRN Medicationssodium chloride flush, 5-40 mL, PRN [...] time PT/OT/SW-consulted we will follow-up Discharge Planning: assistant food service manager consulted Keo Guevara MD Internal Medicine Resident, PGY-1 [facility]; [place], [place] 07/20/2022, 8:06 AM Associated attestation - Livia Cantrell MD - 07/20/2022 7:52 PM EDT Attending Physician Statement I have discussed the case of Asa Thompson, including pertinent history and exam findings with the resident/fellow/medical student/ECONOMIC ADVISER/PA. I have seen and examined the patient and the trevizo elementsof the encounter have been performed by me. I agree with the assessment, plan and orders as documented by the resident/fellow/medical student/ECONOMIC ADVISER/PA With changes made to the note as [...] 93 % 07/19/222136 -- -- -- -- -- 07/19/222106 -- -- -- -- 12 [...] 1655 ml Net 40.64 ml Recent Labs 07/19/2262007/20/22 0148 07/20/22 0426 WBC 7.1 12.3* 10.2 HGB 10.4* 10.6* 11.0* HCT 30.2* 31.3* 32.4* MCV 86.3 86.5 86.6 PLT 410 280 252 Recent Labs 07/19/2262014/22 0148 07/20/22 0426 NA 131* 128* 128* [...] cysto, URS, HLL 7 years prior in [place], [place] with Dr. Harrison Recurrent UTIs, 4 [...] renal function from left kidney Christi Chance DO PGY-3 7:25 AM 07/20/2022 * Alexsandra Mckinley RN - 07/20/2022 5:00 AM EDT Patient's lactic was 3.8. Provider notified. * Alexsandra Mckinley RN - 07/20/2022 3:26 AM EDT Patient's sepsis score is now 5.12. Per sepsis protocol, principal technical writer ordered lactic and blood cultures. Provider notified. * Alexsandra Mckinley RN - 07/20/2022 3:13 AM EDT Waterproofing Mixer notified provider of infection concerns. Patient's WBC [...] original note were not included. Occupational Therapy [facility] Occupational Therapy Not Seen Note DATE: [...] original note were not included. Ke Bonilla Charlie Waters, Orlin, Luc, Priya Urology Progress Note Subjective: Nothing acute overnight [...] -- -- -- 16 -- -- -- 07/18/222 -- -- -- -- 20 -- -- [...] cysto, URS, HLL 7 years prior in [place], [place] with Dr. Harrison Recurrent UTIs, 4 [...] from the original note were not included. [facility] Internal Medicine Teaching Residency Program Inpatient Daily Progress Note Patient: Asa Thompson Date of : 1970 Acct: [id number] Room: [address] [place] [address] Admit date: 07/18/2022 Today's date: 07/19/22 Number [...] breath or chest discomfort. 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 Patient needed urology evaluation and nephrostomy tube placement so transferred to the [place]. Urology consulted plan for IR tomorrow. patient [...] time PT/OT/SW-consulted we will follow-up Discharge Planning: assistant food service manager consulted Keo Guevara MD Internal Medicine Resident, PGY-1 [facility]; [place], [place] 07/19/2022, 6:40 AM Associated attestation - Livia Cantrell MD - 07/19/2022 7:45 PM EDT Attending Physician Statement I have discussed the case of Asa Thompson, including pertinent history and exam findings with the resident/fellow/medical student/ECONOMIC ADVISER/PA. I have seen and examined the patient and the trevizo elementsof the encounter have been performed by me. I agree with the assessment, plan and orders as documented by the resident/fellow/medical student/ECONOMIC ADVISER/PA With changes made to the note as [...] Calculous pyelonephritis [N20.0]. See H&P of admitting/international marketing coordinator resident for more details. 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 Please take ciprofloxacin [...] Primary Emergency Contact: arian thompson Relation: Child Bookmobile Clerk needed? No Past Surgical History: Past Surgical History: Procedure Laterality Date IR NEPHROSTOMY PERCUTANEOUS LEFT 07/19/2022 IR NEPHROSTOMY PERCUTANEOUS LEFT 07/19/2022 Noman Mullen MD [facility] SPECIAL PROCEDURES Immunization History: There is no immunization history on file for this patient. Active Problems: Patient Active Problem List Diagnosis Code Calculous pyelonephritis N20.0 OMAR (acute kidney injury) ([facility]) N17.9 Type 2 diabetes mellitus, with long-term current use of insulin ([facility]) E11.9, Z79.4 Leukocytosis D72.829 Hypothyroidism E03.9 Depression F32.A Hypertension I10 History of coronary artery disease Z86.79 Acute pyelonephritis N10 Left renal atrophy N26.1 Kidney stone N20.0 Sepsis with acute renal failure without septic shock ([facility]) A41.9, R65.20, N17.9 History of penicillin allergy [...] MENTAL STATUS:} IV Access: { TIMO IV ACCESS:315425568} Nursing Mobility/ADLs: Walking {CHP DME ADLs:080830732} Transfer {CHP DME ADLs:121833148} Bathing {CHP DME ADLs:851529593} Dressing {CHP DME ADLs:848222142} Toileting {CHP DME ADLs:335369373} Feeding {CHP DME ADLs:653471351} Cafeteria Server {CHP DME ADLs:723836682} Med Delivery { TIMO MED Delivery:452906394} Wound Care Documentation and Therapy: Elimination: Continence: Bowel: {YES / NO:} Bladder: {YES / NO:} Urinary Catheter: {Urinary Catheter:301567524} Colostomy/Ileostomy/Ileal Conduit: {YES / NO:} Date of Last BM: Intake/Output Summary (Last 24 hours) at 07/22/2022 1349 Last data filed at 07/22/2022 0813 Gross per 24 hour Intake 1594.2 ml Output 3875 ml Net -2280.8 ml I/O last 3 completed shifts: In: 4236.1 [P.O.:580; I.V.:3350.1; IV Piggyback:306] Out: 6520 [Urine:6520] Safety Concerns: { TIMO Safety Concerns:095747347} Impairments/Disabilities: { TIMO Impairments/Disabilities:157817609} Nutrition Therapy: Current Nutrition Therapy: { TIMO Diet List:389343983} Routes of Feeding: {[facility] DME Other Feedings:496039646} Liquids: {[facility] liquid thickness:84964} Daily Fluid Restriction: {[facility] DME Yes amt example:953892994} Last Modified Barium Swallow with Video (Video Swallowing Test): {Done Not Done Date:} Treatments at the Time of Hospital Discharge: Respiratory Treatments: Oxygen Therapy: {Therapy; copd oxygen:96401} Ventilator: { CC Vent List:200541135} Rehab Therapies: {THERAPEUTIC INTERVENTION:7138050397} Weight Bearing Status/Restrictions: {[facility] Weight Bearin} Other Medical Equipment (for information only, NOT a DME order): {EQUIPMENT:864671754} Other Treatments: Patient's personal belongings (please select all that are sent with patient): {[facility] DME Belongings:660515025} RN SIGNATURE: {Esignature:176354215} CASE MANAGEMENT/SOCIAL WORK SECTION Inpatient Status Date: Readmission Risk Assessment Score: Readmission Risk Risk of Unplanned Readmission: 19 Discharging to Facility/ Agency Name: Address: Phone: Fax: Dialysis Facility (if applicable) Name: Address: Dialysis Schedule: Phone: Fax: [employer] Gl[employer]/Construction Skills Teacher signature: {Esignature:274395589} PHYSICIAN SECTION Prognosis: {Prognosis:7179563271} Condition at Discharge: { Patient Condition:189963536} Rehab Potential (if transferring to Rehab): {Prognosis:3897580029} Recommended Labs or Other Treatments After Discharge: Physician Certification: I certify the above information and transfer of Asa Thompson is necessary for the continuing treatment of the diagnosis listed and that she requires {Admit to Appropriate Level of Care:41809} for {GREATER/LESS:573144410} 30 days. Update Admission H&P: {CHP DME Changes in HandP:266810727} PHYSICIAN SIGNATURE: {Esignature:961111676} documented in this encounterBON [employer] Phone: 1(170) 340-947109-13-2022 NotePROCEDURE: PERCUTANEOUS ANTEGRADE PYELOGRAM LEFT PERCUTANEOUS NEPHROURETERAL [...] the procedure including risks, benefits, and alternatives. Clanton protocol was followed. The patient's flank was [...] into the urinary bladder using a 4 Irish Kumpe the catheter; the Glidewire was exchanged [...] puncture of the lower pole calyx, 4 Irish Kumpe the catheter manipulation and glidewire extension [...] Signed by: Noman Mullen MD 07/19/22 Final resultMerAdventist Health [facility]09-13-2022 NotePROCEDURE: PERCUTANEOUS ANTEGRADE PYELOGRAM LEFT PERCUTANEOUS NEPHROURETERAL [...] the procedure including risks, benefits, and alternatives. Clanton protocol was followed. The patient's flank was [...] into the urinary bladder using a 4 Irish Kumpe the catheter; the Glidewire was exchanged [...] puncture of the lower pole calyx, 4 Irish Kumpe the catheter manipulation and glidewire extension into the urinary bladder. Subsequent images show the nephroureteral stent in satisfactory position. [facility] RIS [id number] NoteHNO ID: [id number] Author: Liliana Avila, PhD Service: ? Author Type: Physician Type: Progress Notes Filed: 03/11/2022 3:32 PM Note Text: [facility] Progress Note 03/11/2022 Billing code: 03022/[place] 3:10PM - I called the patient to [...] her evaluation/medical records. Will send her a [employer] message with instructions. Liliana Avila, PhD Clinical Health [facility]ologistC[facility]01-20-2022 NoteHNO ID: [id number] Author: Jeannine Tamez, PhD Service: ? Author Type: Psychologist Type: Progress Notes Filed: 11/25/2021 8:38 AM Note Text: [facility] Patient no-showed appointment despite phone call and HIPAA compliant VM. Patient given instructions on rescheduling. Jeannine Tamez, PhD PsychologistCherrington Hospital09-03-2021 NoteHNO ID: [id number] Author: Ghazal Doyle RD Service: ? Author [...] meal plan and stated understanding. Ghazal Doyle RDCherrington Hospital08-31-2021 NoteHNO ID: [id number] Author: Ghazal Doyle RD Service: ? Author Type: Registered Dietitian Type: Progress Notes Filed: 07/06/2021 11:52 AM Note Text: Telephone call placed to patient at 11:49 AM at [phone]. Received forwarded My Chart message from Abraham Pacheco RN regarding hypoglycemia on liquid diet phase. No answer . Left message with contact telephone number [phone] and instructions to communicate with this provider via [employer] when able. Ghazal Doyle RDCherrington Hospital08-16-2021 NoteHNO ID: [id number] Author: Quincy Rodriguez MD Service: ? Author [...] AND Bariatric Surgery Fellow Bariatric AND Metabolic [facility] STAFF NOTE I have seen and [...] counseling and educating the patient/family/caregiver. Quincy Rodriguez, [facility]06-04-2021 NoteHNO ID: [id number] Author: Jeannine Tamez, PhD Service: ? Author Type: Psychologist Type: Progress Notes Filed: 04/09/2021 2:44 PM Note Text: [facility] Receipt of Outside Records Patient: Asa Thompson Date: 04/09/2021 Received records from patient's physician, Garry Ramos MD of [employer] (Address: [address] [place] [address]; ; ). Asa is off of all psychiatric meds and is stable for gastric bypass surgery. These records have been sent to scanning. Plan: *All requirements have been met Jeannine Tamez, PhD PsychologistCherrington Hospital05-26-2021 NoteHNO ID: [id number] Author: Ghazal Doyle RD Service: ? Author Type: Registered Dietitian Type: Progress Notes Filed: 03/31/2021 9:29 AM Note Text: [facility] Nutrition Therapy: Virtual Consult ? Re-assessment This visit was performed virtually due to the COVID-19 epidemic as an effort to protect patients and minimize exposure. Consent from patient received to conduct visit virtually. This Team Access Model visit is a virtual encounter. It required patient-provider interaction for the medical decision making as documented below. This visit completed via [employer] Now as Zoom did not connect PROGRESS: [...] - met 6. Start researching post-op vitamins: [employer], [employer], or [employer]-specific websites- - met Pre-op goal weight:?238 lbs [...] Diagnosis Date - Anxiety - Bipolar disorder ([facility]) - CAD (coronary artery disease) 10/06/2010 - DM (diabetes mellitus) ([facility]) - Hyperlipidemia - Hypothyroidism - Nephrolithiasis - Schizophrenia ([facility]) - UTI (urinary tract infection) PAST SURGICAL HISTORY Procedure Laterality Date - CARDIAC CATH 10/06/2010 Moderate, nonhemodynamically significant stenosis of RCA (by FFR) - HYSTERECTOMY HX - PAST SURGICAL HISTORY OF 03/2016 urinary stent - TONSILLECTOMY HX ANTHROPOMETRICS Height per patient: 63? Weight per patient: 236 lbs# Most recent height and weight per [facility] Height: Last 1 Encounter Ht Readings: [...] [facility] (more content not included)... [facility]* Diagnosis Calculous pyelonephritis- Primary Kidney stone [...] of non-steroidal anti-inflammatories documented in this encounter [employer] Phone: evaluation note* Diagnosis Nephrostomy tube displaced (HCC)- Primary Urinary complications Nephrostomy complication (HCC) documented in this encounter [employer] Phone: History general Narrative - Reported* Type Description Date Medical History Hypercholesterolemia Medical History DM Medical History Hypothyroid Medical History diabetic neuropathy Surgical History ALIZA BSO 2000 Surgical History Heart catherization 2010 Surgical History kidney stone Surgical History left kidney removed 10/26/2022 Hospitalization History See past surgical histor y Hospitalization History Heart Event 2010 [employer] Other Hospital Discharge instructions* Attachments The following attachments cannot be sent through Care Everywhere. * Nephrostomy Tube Care ([place]izen [place]) documented in this encounterBON [employer] Work Phone: Assessments No Assessments Information Available [...] W PHARMACOLOGICAL INTERVENTION Robson, Christi, DO [address] [address] Referral ID Status Reason Start Date Expiration Date Visits Re quested Visits Authorized [id number] Open 08/03/2022 08/03/2023 1 1 Additional Source Comments INFORMATION SOURCE (unrecogn ized section and content) DATE CREATED AUTHOR 04/03/2021 [facility] DATE CREATED AUTHOR AUTHOR'S ORGANIZ ATION 03/15/2022 [facility] DATE CREATED AUTHOR AUTHOR'S ORGANIZ ATION 08/09/2022 [facility] DATE CREATED AUTHOR AUTHOR'S ORGANIZ ATION 08/11/2022 [facility] DATE CREATED AUTHOR AUTHOR'S ORGANIZ ATION 03/17/2023 [facility] DATE CREATED AUTHOR AUTHOR'S ORGANIZ ATION 08/07/2024 [facility] DATE CREATED AUTHOR AUTHOR'S ORGANIZ ATION 11/02/2024 [facility] Reason for Visit (unrecogniz ed section and content) Reason Comments Flank Pain Specialty Diagnoses / Procedures Referred By Serina bonilla Referred To Contact Diagnoses Kidney stone Acute pyelonephritis Calculous pyelonephritis Livia Cantrell MD [address] [address] [facility] [address] [place] [address] Referral ID Status Reason Start Date Expiration Date Visits Re quested Visits Authorized [id number] 1 1 Reason Comments Other nephrostamy tube got pulled. tub is broken and leaking urine. not able to gett it to stop leaking Specialty Diagnoses / Procedures Referred By Serina bonilla Referred To Contact Diagnoses Nephrostomy tube displaced (HCC) Nephrostomy complication (HCC) Paloma Arceo MD [address] [place] [address] [facility] [id number] [place] [address] Referral ID Status Reason Start Date Expiration Date Visits Re quested Visits Authorized [id number] 1 1 Ordered Prescriptions (unrec ognized section [...] RN) 0601 (New Bag - Provider: TERRY BERMGAN)0701 (Stopped - Provider: Christine Campa, BRANDON)1614 (Not [...] specifically ordered. 0423 (Given - Provider: Alexsandra cMkinley RN) fentaNYL (SUBLIMAZE) injection 50 mcg (CANCELED) [...] Mattson, BRANDON)1250 (Given - Provider: Ligia Mattson, BRANODN) fentaNYL (SUBLIMAZE) injection 50 mcg 50 mcg, [...]
Care Teams (unrecognized sec tion and content) Threading Machine Tender Relationship Specialty Start Date End Date Garry Ramos MD [address] [place] [id number] [phone] PCP - [facility] 07/22/22 Threading Machine Tender Relationship Specialty Start Date End Date Garry Ramos MD [address] [place] [phone] PCP - [facility] 07/22/22 FOR RECORDS PERTAINING TO PATIENTS WHO [...] BE BASED ON THE PRIMARY CLINICAL RECORDS. [facility]. provides no warranty or guarantee of the accuracy or completeness of information in this document.
[2025-08-20 10:38] LABS: Hematocrit 37.2 % (36.0-48.0); Hemoglobin 12.6 g/dL (12.0-16.0); Immature Granulocytes Abs Auto 0.03 10^3/uL (0.00-0.03); Immature Granulocytes Pct Auto 0.5 % (0.0-0.5); Lymphocytes Absolute Auto 2.2 10^3/uL (1.2-3.8); Mean Corpuscular HGB Conc 33.9 g/dL (29.9-35.2); Mean Corpuscular Hemoglobin 28.3 pg (26.7-34.0); Mean Corpuscular Volume 83.4 fL (81.0-99.0); Platelet Count 364 10^3/uL (150-450); Red Blood Count 4.46 10^6/uL (4.20-5.40); White Blood Count 6.6 10^3/uL (4.0-11.0)
[2025-08-20 11:36] LABS: Alanine Aminotransferase 26 U/L (14-59); Albumin Globulin Ratio 0.7; Albumin Level 3.1 g/dL (3.4-5.0); Alkaline Phosphatase 133 U/L (46-116); Anion Gap 15.2; Aspartate Amino Transferase 10 U/L (15-37); Blood Urea Nitrogen 32.0 mg/dL (7.0-18.0); Calcium 9.6 mg/dL (8.5-10.1); Carbon Dioxide 25.2 mmol/L (21.0-32.0); Chloride 102 mmol/L (98-107); Cholesterol 229 mg/dL (<=200); Estimated GFR (African America 42 (>=60 mL/min/1.73m^2); Estimated GFR (Non-African Ame 35 (>=60 mL/min/1.73m^2); Free T3 3.38 pg/mL (2.18-3.98); Globulin 4.4 g/dL; Glucose 310 mg/dL (74-106); HDL Cholesterol 43 mg/dL (40-60); Potassium 4.4 mmol/L (3.5-5.1); Sodium 138 mmol/L (136-145); Thyroid Stimulating Hormone <0.007 uIU/mL (0.358-3.740); Total Protein 7.5 g/dL (6.4-8.2); Triglycerides 373 mg/dL (<=150); VLDL CHOLESTEROL 74.6 mg/dL
== END 2025-08-20 10:07 | disposition home or self-care (01) ==
PROVIDERS: PCP Family Medicine; Visit Provider Family Medicine
DX: Z00.00 Encounter for general adult medical examination without abnormal findings (principal); Z12.11 Encounter for screening for malignant neoplasm of colon
CPT/HCPCS: 36415; 80053; 80061; 82306; 83036; 84436; 84443; 84481; 85025

== ENCOUNTER 2025-08-25 11:49 | Outpatient (OUT) | payer OTHER, SELFPAY ==
--- OUTSIDE RECORDS SUMMARY | 2025-08-25 11:55 | XMS_ITS | CCD ---
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 ([facility]) Morphine; Translations: [MORPHINE] Drug Allergy 6 [employer] [facility] [employer] Work Phone: (6 sources) Penicillins; Translations: [Penicillins] Propensity to adverse reactions to drug 9 [facility] (3 sources) Ciprofloxacin; Translations: [CIPROFLOXACIN] Drug Allergy 6 [employer] [facility] [employer] (1 source) penicillAMINE Drug Allergy [facility] [employer] Other (2 sources) Ciprofloxacin Drug Allergy 6 [facility] Repository (1 source) HYDROmorphone Drug Allergy [facility] Repository (2 sources) Morphine Drug Allergy 9 [facility] Repository Medications Current Medications Medication Drug [...] Active Start: 07-23-2022 take 1 tablet by [facility] once daily furosemide (LASIX) 20 MG tablet [...] mg Start: 03-21-2020 take 2 tablets by [facility] every twelve hours Gabapentin 600 MG 2 [...] Until Discontinued, Nausea, Vomiting polyethylene glycol 3350 09828 mg powder for oral solution (2 sources) [...] disease (1 source) Atherosclerotic heart disease of [place] coronary artery without angina pectoris; Translations: [ASHD PENOBSCOT CA W/O ANGINA PECTORIS] Onset: 07-20-2022 Chronic [...] aftercare (3 sources) Patient encounter status; Translations: [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) use of non-steroidal anti-inflammatories (NSAID)] Onset: [...] Onset: 04-15-2022 Episodic Other aftercare (1 source) [facility] (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; Translations: [APPRAISER TIMBER CURRENT USE OF ASPIRIN] Onset: 07-20-2022 Episodic Other aftercare (1 source) 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; Translations: [OTH APPRAISER TIMBER CURRENT DRUG THERAPY] Onset: 07-20-2022 Episodic Other aftercare (1 source) [facility] (current) use of oral hypoglycemic drugs; Translations: [APPRAISER TIMBER USE ORAL HYPOGLYCEMIC DX] Onset: 07-20-2022 Episodic Other screening for suspected conditions (not mental disorders or infectious disease) (1 source) Encounter for screening for malignant neoplasm of rectum; Translations: [ENC SCREEN MALIG NEOPLASM RECTUM] Onset: 04-19-2022 Episodic Urinary tract infections (6 sources) Acute pyelonephritis; Translations: [Acute pyelonephritis] Onset: 07-19-2022 Episodic Results Test Name Value Interpretation Reference Range Facility [facility] 11-01-2024 NURSNOTE RN educated pt on d/ [...] off of unit with all of belongings. [facility] NURSNOTE Bedside swallow stud y completed and passed. Normal [facility] Telephoneon 10-24-2024 Telephone [phone] Asa Thompson Jyotsna 1970 F Date Provider Department Center 10/24/2024 Leigh AnnSeanFERMIN [facility] Family History Problem Relation Age of Onset Coronary artery disease Father Other Father Family Status - Relation Status Age at Father [facility] 37on 09-20-2024 37 Patient returned my call. She is not having fever or chills. She agrees to complete blood cultures and ANGEL. Orders entered. [facility] 37 Regarding echo resul t from 09/13/2024: [...] Thanks for patient to return my call. [facility] Office Visiton 09-02-2024 Follow-up visit [id number] LucpierceGina mcdonaldAsa Jyotsna 1970 F Date Provider Department [place] 09/02/2024 [facility] [place] EDD[facility] Fuller Family History Problem Relation Age of Onset Coronary artery disease Father Other Father Family Status - Relation Status Age at Father Level of Service:[address] [place] OFFICE/OUTPATIENT NEW MODERATE MDM 45 MINUTES [facility] CBC AND AUTO DIFFon 08-06-20 24 ABSOLUTE BASOPHIL 0.0 X10E9/L Normal 0.0-0.2 [facility] Comment on above: Performed By: #### C BCA, 76479-9, CMP #### [facility] ([id number]) [address] [facility], [place] [address] #### HA1C #### [facility] ([id number]) [address], [address] [place] [address] ABSOLUTE NEUTROPHIL 4.0 X10E9/L Normal 1.5-6.6 [facility] Comment on above: Performed By: #### C DIMA, 24876-6, CMP #### [facility] ([id number]) [address] [place] [address]285 #### HALulu #### [facility] ([id number]) [address], [address] [place] [address] Basophils/100 WBC (Bld) 0.6 % Normal [facility] Comment on above: Performed By: #### C DIMA, 17912-0, CMP #### [facility] ([id number]) [address] [place] [address]77 #### ARUN #### [facility] ([id number]) [address], [address] [place] [address] Eosinophils (Bld) [#/Vol] 0.2 10*3/uL Normal 0.0-0.4 [facility] Comment on above: Performed By: #### Jaimee CH, 13210-9, CMP #### [facility] ([id number]) [address] [place] [address] 82861 #### ARUN #### [facility] ([id number]) [address], [address] [place] [address] Eosinophils/100 WBC (Bld) 2.3 % Normal [facility] Comment on above: Performed By: #### C DIMA, 14095-7, CMP #### [facility] ([id number]) [address] [place] [address] 52579 #### HALulu #### [facility] ([id number]) [address], [address] [place] [address] Erythrocyte distribution width (RBC) [Ratio] 15.1 % High 11.5-15.0 [facility] Comment on above: Performed By: #### Jaimee CH, 91346-0, CMP #### [facility] ([id number]) [address] [place] [address] 23986 #### HA1C #### [facility] ([id number]) [address], [address] [place] [address] Hematocrit (Bld) [Volume fraction] 32.9 % Low 35-47 [facility] Comment on above: Performed By: #### C DIMA, 88294-6, CMP #### [facility] ([id number]) [address] [place] [address] 25544 #### ARUN #### [facility] ([id number]) [address], [address] [place] [address] Hemoglobin (Bld) [Mass/Vol] 11.4 g/dL Low 11.7-15.5 [facility] Comment on above: Performed By: #### C DIMA, 55500-9, CMP #### [facility] ([id number]) [address] [place] [address] 14736 #### ARUN #### [facility] ([id number]) [address], [address] [place] [address] Lymphocytes (Bld) [#/Vol] 2.4 10*3/uL Normal 1.0-3.5 [facility] Comment on above: Performed By: #### C DIMA, 81454-7, CMP #### [facility] ([id number]) [address] [place] [address] 21420 #### HALulu #### [facility] ([id number]) [address], [address] [place] [address] Lymphocytes/100 WBC (Bld) 33.9 % Normal [facility] Comment on above: Performed By: #### C DIMA, 53207-6, CMP #### [facility] ([id number]) [address] [place] [address] 30392 #### HA1C #### [facility] ([id number]) [address], [address] [place] [address] MCH (RBC) [Entitic mass] 29.2 pg Normal 27-34 [facility] Comment on above: Performed By: #### Jaimee CH, 67904-6, CMP #### [facility] ([id number]) [address] [place] [address] 91216 #### HA1C #### [facility] ([id number]) [facility], [address] [place] [address] MCHC (RBC) [Mass/Vol] 34.7 g/dL Normal 32-36 [facility] Comment on above: Performed By: #### Jaimee CH, 01707-2, CMP #### [facility] ([id number]) [address] [place] [address] 03542 #### HA1C #### [facility] ([id number]) [address] [facility], [address] [place] [address] MCV (RBC) [Entitic vol] 84 fL Normal 80-100 [facility] Comment on above: Performed By: #### Jaimee CH, 02619-7, CMP #### [facility] ([id number]) [address] [place] [address] 92711 #### HA1C #### [facility] ([id number]) [address] [facility], [address] [place] [address] Monocytes (Bld) [#/Vol] 0.4 10*3/uL Normal 0-0.9 [facility] Comment on above: Performed By: #### Jaimee CH, 04541-3, CMP #### [facility] ([id number]) [address] [place] [address] 32834 #### ARUN #### [facility] ([id number]) [address], [address] [place] [address] Monocytes/100 WBC (Bld) 6.2 % Normal [facility] Comment on above: Performed By: #### Jaimee CH, 24929-5, CMP #### [facility] ([id number]) [address] [place] [address] 79317 #### ARUN #### [facility] ([id number]) [address], [address] [place] [address] Neutrophils/100 WBC (Bld) 57.0 % Normal [facility] Comment on above: Performed By: #### Jaimee CH, 20705-7, CMP #### [facility] ([id number]) [address] [place] [address] 29864 #### ARUN #### [facility] ([id number]) [address], [address] [place] [address] Platelet mean volume (Bld) [Entitic vol] 8.2 fL Normal 7-12 [facility] Comment on above: Performed By: #### Jaimee CH, 32284-8, CMP #### [facility] ([id number]) [address] [place] [address] 50679 #### ARUN #### [facility] ([id number]) [address], [address] [place] [address] Platelets (Bld) [#/Vol] 336 10*3/uL Normal 150-450 [facility] Comment on above: Performed By: #### Jaimee CH, 67715-3, CMP #### [facility] ([id number]) [address] [place] [address] 13397 #### ARUN #### [facility] ([id number]) [address], [address] [place] [address] RBC COUNT 3.91 X10E12/L Normal 3.80-5.20 [facility] Comment on above: Performed By: #### C DIMA, 46707-5, CMP #### [facility] ([id number]) [address] [place] [address] 43812 #### HA1C #### [facility] ([id number]) [address] [address], [address] [place] [address] WBC (Bld) [#/Vol] 7.1 10*3/uL Normal 4.0-11.0 [facility] Comment on above: Performed By: #### C DIMA, 51548-3, CMP #### [facility] ([id number]) [address] [place] [address] 88141 #### HA1C #### [facility] ([id number]) [address] [place] [address], [address] [place] [address] COMPREHENSIVE METABOLIC PANE Chay 08-06-2024 Albumin [Mass/Vol] 3.6 g/dL Normal 3.2-5.3 [facility] Comment on above: Performed By: #### Jaimee CH, 71020-7, CMP #### [facility] ([id number]) [address] [place] [address] 41939 #### HA1C #### [facility] ([id number]) [address] [place] [address], [address] [place] [address] ALP [Catalytic activity/Vol] 87 U/L Normal 39-130 [facility] Comment on above: Performed By: #### C DIMA, 66003-0, CMP #### [facility] ([id number]) [address] [place] [address] 21543 #### HA1C #### [facility] ([id number]) [address], [address] [place] [address] ALT [Catalytic activity/Vol] 19 U/L Normal 0-31 [facility] Comment on above: Performed By: #### Jaimee CH, 06444-1, CMP #### [facility] ([id number]) [address] [place] [address] 92496 #### HA1C #### [facility] ([id number]) [address], [address] [place] [address] Anion gap [Moles/Vol] 10 mmol/L Normal 5-15 [facility] Comment on above: Performed By: #### C DIMA, 15865-7, CMP #### [facility] ([id number]) [address] [place] [address] 05280 #### HA1C #### [facility] ([id number]) [address], [address] [place] [address] AST [Catalytic activity/Vol] 20 U/L Normal 0-41 [facility] Comment on above: Performed By: #### C DIMA, 32318-9, CMP #### [facility] ([id number]) [address] [place] [address] 82154 #### HA1C #### [facility] ([id number]) [address], [address] [place] [address] Bilirubin [Mass/Vol] 0.3 mg/dL Normal 0.3-1.2 [facility] Comment on above: Performed By: #### C BCA, 64803-4, CMP #### [facility] ([id number]) [address] [place] [address] 06140 #### HA1C #### [facility] ([id number]) [address], [address] [place] [address] Calcium [Mass/Vol] 8.8 mg/dL Normal 8.5-10.5 [facility] Comment on above: Performed By: #### C BCA, 46484-9, CMP #### [facility] ([id number]) [address] [place] [address] 17557 #### HA1C #### [facility] ([id number]) [address], [address] [place] [address] Chloride [Moles/Vol] 103 mmol/L Normal 98-109 [facility] Comment on above: Performed By: #### C BCA, 99169-7, CMP #### [facility] ([id number]) [address] [place] [address] 61086 #### HA1C #### [facility] ([id number]) [address], [address] [place] [address] CO2 [Moles/Vol] 19 mmol/L Low 22-32 [facility] Comment on above: Performed By: #### C BCA, 01889-7, CMP #### [facility] ([id number]) [address] [place] [address] 81985 #### HA1C #### [facility] ([id number]) [address], [address] [place] [address] Creatinine [Mass/Vol] 1.58 mg/dL High 0.40-1.00 [facility] Comment on above: Result Comment: METH OD TRACEABLE TO IDMS STANDARD Performed By: #### C BCA, 41096-5, CMP #### [facility] ([id number]) [address] [place] [address] 28977 #### HA1C #### [facility] ([id number]) [address], [address] [place] [address] GFR/1.73 sq M.predicted among non-blacks MDRD (S/P/Bld) [Vol rate/Area] 39 mL/min/{1.73_m2} Low >59 [facility] Comment on above: Result Comment: Reported eGFR is based on the CKD-EPI 2020 equation that does not use a race coefficient. Performed By: #### C DIMA, 91892-8, CMP #### [facility] ([id number]) [address] [place] [address] 40669 #### HA1C #### [facility] ([id number]) [address], [address] [place] [address] Glucose [Mass/Vol] 312 mg/dL High 65-99 [facility] Comment on above: Performed By: #### C DIMA, 75317-8, CMP #### [facility] ([id number]) [address] [place] [address] 58308 #### HA1C #### [facility] ([id number]) [address], [address] [place] [address] Potassium [Moles/Vol] 4.7 mmol/L Normal 3.5-5.0 [facility] Comment on above: Performed By: #### Jaimee CH, 05724-0, CMP #### [facility] ([id number]) [address] [place] [address] 00207 #### HA1C #### [facility] ([id number]) [address], [address] [place] [address] Protein [Mass/Vol] 6.7 g/dL Normal 6.0-8.0 [facility] Comment on above: Performed By: #### C DIMA, 35493-0, CMP #### [facility] ([id number]) [address] [place] [address] 74888 #### HA1C #### [facility] ([id number]) [address], [address] [place] [address] Sodium [Moles/Vol] 132 mmol/L Low 134-146 [facility] Comment on above: Performed By: #### C DIMA, 80669-9, CMP #### [facility] ([id number]) [address] [place] [address] 43909 #### HA1C #### [facility] ([id number]) [address], [address] [place] [address] Urea nitrogen [Mass/Vol] 29 mg/dL High 5-23 [facility] Comment on above: Performed By: #### C DIAM, 41361-6, CMP #### [facility] ([id number]) [address] [place] [address] 49458 #### HA1C #### [facility] ([id number]) [address], [address] [place] [address] Glucose Glucometer (BldC) [M ass/Vol]on 08-06-2024 Glucose [Mass/Vol] 319 mg/dL High 65-99 [facility] Heparin unfractionated Chrom ogenic method Qn (PPP)on 08-06-2024 ANTI XA UFH 0.29 IU/mL Low 0.30-0.70 [facility] Comment on above: Result Comment: Opti mal time for testing is 6 hrs post dosage This test is specific for monitoring patients on UFH, and is not recommended for use with other Anti-Xa medications. Performed By: #### C DIMA, 64070-5, CMP #### [facility] ([id number]) [address] [place] [address] 02650 #### HA1C #### [facility] ([id number]) [address], [address] [place] [address] ANTI XA UFH 0.33 IU/mL Normal 0.30-0.70 [facility] Comment on above: Result Comment: Opti mal time for testing is 6 hrs post dosage This test is specific for monitoring patients on UFH, and is not recommended for use with other Anti-Xa medications. Performed By: #### C DIMA, 75858-0, CMP #### [facility] ([id number]) [address] [place] [address] 29426 #### HA1C #### [facility] ([id number]) [address], [address] [place] [address] MAGNESIUMon 08-06-2024 Magnesium [Mass/Vol] 1.8 mg/dL Normal 1.8-2.6 [facility] Comment on above: Performed By: #### C DIMA, 81531-0, CMP #### [facility] ([id number]) [address] [place] [address] 36070 #### HA1C #### [facility] ([id number]) [address], [address] [place] [address] CBC AND AUTO DIFFon 08-05-20 24 ABSOLUTE BASOPHIL 0.0 X10E9/L Normal 0.0-0.2 [facility] Comment on above: Performed By: #### C DIMA, 30005-0, CMP #### [facility] ([id number]) [address] [place] [address] 74206 #### HA1C #### [facility] ([id number]) [address], [address] [place] [address] ABSOLUTE NEUTROPHIL 3.0 X10E9/L Normal 1.5-6.6 [facility] Comment on above: Performed By: #### C DIMA, 69312-7, CMP #### [facility] ([id number]) [address] [place] [address] 16829 #### HA1C #### [facility] ([id number]) [address], [address] [place] [address] Basophils/100 WBC (Bld) 0.4 % Normal [facility] Comment on above: Performed By: #### C DIMA, 63616-3, CMP #### [facility] ([id number]) [address] [place] [address] 90486 #### ARUN #### [facility] ([id number]) [address], [address] [place] [address] Eosinophils (Bld) [#/Vol] 0.1 10*3/uL Normal 0.0-0.4 [facility] Comment on above: Performed By: #### C DIMA, 96253-7, CMP #### [facility] ([id number]) [address] [place] [address] 00818 #### ARUN #### [facility] ([id number]) [address], [address] [place] [address] Eosinophils/100 WBC (Bld) 2.6 % Normal [facility] Comment on above: Performed By: #### Jaimee CH, 28617-9, CMP #### [facility] ([id number]) [address] [place] [address] 28099 #### ARUN #### [facility] ([id number]) [address], [address] [place] [address] Erythrocyte distribution width (RBC) [Ratio] 14.7 % Normal 11.5-15.0 [facility] Comment on above: Performed By: #### Jaimee CH, 00335-1, CMP #### [facility] ([id number]) [address] [place] [address] 33565 #### HA1C #### [facility] ([id number]) [address], [address] [place] [address] Hematocrit (Bld) [Volume fraction] 32.3 % Low 35-47 [facility] Comment on above: Performed By: #### Jaimee CH, 67340-4, CMP #### [facility] ([id number]) [address] [place] [address] 65144 #### HALulu #### [facility] ([id number]) [address], [address] [place] [address] Hemoglobin (Bld) [Mass/Vol] 11.1 g/dL Low 11.7-15.5 [facility] Comment on above: Performed By: #### Jaimee CH, 66659-9, CMP #### [facility] ([id number]) [address] [place] [address] 48195 #### ARUN #### [facility] ([id number]) [address], [address] [place] [address] Lymphocytes (Bld) [#/Vol] 1.8 10*3/uL Normal 1.0-3.5 [facility] Comment on above: Performed By: #### Jaimee CH, 00537-0, CMP #### [facility] ([id number]) [address] [place] [address] 00638 #### ARUN #### [facility] ([id number]) [address] [facility] [facility], [address] [place] [address] Lymphocytes/100 WBC (Bld) 34.0 % Normal [facility] Comment on above: Performed By: #### Jaimee CH, 51454-7, CMP #### [facility] ([id number]) [address] [place] [address] 17011 #### HA1C #### [facility] ([id number]) [address] [place] [address], [address] [place] [address] MCH (RBC) [Entitic mass] 29.1 pg Normal 27-34 [facility] Comment on above: Performed By: #### Jaimee CH, 24432-7, CMP #### [facility] ([id number]) [address] [place] [id number] #### HA1C #### [facility] ([id number]) [address], [address] [place] [address] MCHC (RBC) [Mass/Vol] 34.3 g/dL Normal 32-36 [facility] Comment on above: Performed By: #### [place] CH, 77246-0, CMP #### [facility] ([id number]) [address] [place] [address] #### HALulu #### [facility] ([id number]) [address] [facility], [address] [place] [address] MCV (RBC) [Entitic vol] 85 fL Normal 80-100 [facility] Comment on above: Performed By: #### Jaimee CH, 81705-6, CMP #### [facility] ([id number]) [address] [place] [id number] #### HALulu #### [facility] ([id number]) [address] [facility], [address] [place] [address] Monocytes (Bld) [#/Vol] 0.3 10*3/uL Normal 0-0.9 [facility] Comment on above: Performed By: #### Jaimee CH, 66985-4, CMP #### [facility] ([id number]) [address] [place] [address] #### HALulu #### [facility] ([id number]) [address], [address] [place] [address] Monocytes/100 WBC (Bld) 5.9 % Normal [facility] Comment on above: Performed By: #### Jaimee CH, 34315-3, CMP #### [facility] ([id number]) [address] [place] [address] 02866 #### HALulu #### [facility] ([id number]) [address], [address] [place] [address] Neutrophils/100 WBC (Bld) 57.1 % Normal [facility] Comment on above: Performed By: #### Jaimee CH, 15402-7, CMP #### [facility] ([id number]) [address] [place] [address] 94062 #### ARUN #### [facility] ([id number]) [address], [address] [place] [address] Platelet mean volume (Bld) [Entitic vol] 8.3 fL Normal 7-12 [facility] Comment on above: Performed By: #### Jaimee CH, 59786-4, CMP #### [facility] ([id number]) [address] [place] [address] 65208 #### ARUN #### [facility] ([id number]) [address], [address] [place] [address] Platelets (Bld) [#/Vol] 321 10*3/uL Normal 150-450 [facility] Comment on above: Performed By: #### Jaimee CH, 69165-8, CMP #### [facility] ([id number]) [address] [place] [address] 47328 #### ARUN #### [facility] ([id number]) [address], [address] [place] [address] RBC COUNT 3.81 X10E12/L Normal 3.80-5.20 [facility] Comment on above: Performed By: #### Jaimee CH, 32440-2, CMP #### [facility] ([id number]) [address] [place] [address] 19746 #### HALulu #### [facility] ([id number]) [address], [address] [place] [address] WBC (Bld) [#/Vol] 5.2 10*3/uL Normal 4.0-11.0 [facility] Comment on above: Performed By: #### C DIMA, 98800-9, CMP #### [facility] ([id number]) [address] [place] [address] 24410 #### HA1C #### [facility] ([id number]) [address], [address] [place] [address] COMPREHENSIVE METABOLIC PANE [facility] 08-05-2024 Albumin [Mass/Vol] 3.4 g/dL Normal 3.2-5.3 [facility] Comment on above: Performed By: #### C DIMA, 68425-2, CMP #### [facility] ([id number]) [address] [place] [address] 15371 #### HALulu #### [facility] ([id number]) [address] [facility], [address] [place] [address] ALP [Catalytic activity/Vol] 88 U/L Normal 39-130 [facility] Comment on above: Performed By: #### Jaimee CH, 10685-3, CMP #### [facility] ([id number]) [address] [place] [address] 36296 #### HA1C #### [facility] ([id number]) [address] [facility], [address] [place] [address] ALT [Catalytic activity/Vol] 19 U/L Normal 0-31 [facility] Comment on above: Performed By: #### C DIMA, 77912-7, CMP #### [facility] ([id number]) [address] [place] [address] 14827 #### HA1C #### [facility] ([id number]) [address] [facility], [address] [place] [address] Anion gap [Moles/Vol] 8 mmol/L Normal 5-15 [facility] Comment on above: Performed By: #### C BCA, 75514-4, CMP #### [facility] ([id number]) [address] [place] [address] 04213 #### HA1C #### [facility] ([id number]) [address], [address] [place] [address] AST [Catalytic activity/Vol] 17 U/L Normal 0-41 [facility] Comment on above: Performed By: #### C BCA, 53605-1, CMP #### [facility] ([id number]) [address] [place] [address] 17533 #### HA1C #### [facility] ([id number]) [address], [address] [place] [address] Bilirubin [Mass/Vol] 0.5 mg/dL Normal 0.3-1.2 [facility] Comment on above: Performed By: #### C BCA, 19405-7, CMP #### [facility] ([id number]) [address] [place] [address] 79640 #### HA1C #### [facility] ([id number]) [address], [address] [place] [address] Calcium [Mass/Vol] 9.0 mg/dL Normal 8.5-10.5 [facility] Comment on above: Performed By: #### C BCA, 54387-6, CMP #### [facility] ([id number]) [address] [place] [address] 46285 #### HA1C #### [facility] ([id number]) [address], [address] [place] [address] Chloride [Moles/Vol] 104 mmol/L Normal 98-109 [facility] Comment on above: Performed By: #### C BCA, 30876-3, CMP #### [facility] ([id number]) [address] [place] [address] 94569 #### HA1C #### [facility] ([id number]) [address], [address] [place] [address] CO2 [Moles/Vol] 20 mmol/L Low 22-32 [facility] Comment on above: Performed By: #### C DIMA, 35384-8, CMP #### [facility] ([id number]) [address] [place] [address] 89225 #### HA1C #### [facility] ([id number]) [address], [address] [place] [address] Creatinine [Mass/Vol] 1.64 mg/dL High 0.40-1.00 [facility] Comment on above: Result Comment: METH OD TRACEABLE TO IDMS STANDARD Performed By: #### C DIMA, 28527-2, CMP #### [facility] ([id number]) [address] [place] [address] 77452 #### HA1C #### [facility] ([id number]) [address], [address] [place] [address] GFR/1.73 sq M.predicted among non-blacks MDRD (S/P/Bld) [Vol rate/Area] 37 mL/min/{1.73_m2} Low >59 [facility] Comment on above: Result Comment: Reported eGFR is based on the CKD-EPI 2020 equation that does not use a race coefficient. Performed By: #### C DIMA, 04499-4, CMP #### [facility] ([id number]) [address] [place] [address] 88551 #### HA1C #### [facility] ([id number]) [address], [address] [place] [address] Glucose [Mass/Vol] 241 mg/dL High 65-99 [facility] Comment on above: Performed By: #### C DIMA, 32045-8, CMP #### [facility] ([id number]) [address] [place] [address] 28433 #### HA1C #### [facility] ([id number]) [address], [address] [place] [address] Potassium [Moles/Vol] 4.6 mmol/L Normal 3.5-5.0 [facility] Comment on above: Performed By: #### C DIMA, 10531-8, CMP #### [facility] ([id number]) [address] [place] [address] 92944 #### HA1C #### [facility] ([id number]) [address], [address] [place] [address] Protein [Mass/Vol] 6.7 g/dL Normal 6.0-8.0 [facility] Comment on above: Performed By: #### C DIMA, 74889-1, CMP #### [facility] ([id number]) [address] [place] [address] 72555 #### HA1C #### [facility] ([id number]) [address], [address] [place] [address] Sodium [Moles/Vol] 132 mmol/L Low 134-146 [facility] Comment on above: Performed By: #### C DIMA, 33312-2, CMP #### [facility] ([id number]) [address] [place] [address] 42415 #### HA1C #### [facility] ([id number]) [address], [address] [place] [address] Urea nitrogen [Mass/Vol] 33 mg/dL High 5-23 [facility] Comment on above: Performed By: #### Jaimee CH, 74222-0, CMP #### [facility] ([id number]) [address] [place] [address] 30057 #### ARUN #### [facility] ([id number]) [address], [address] [place] [address] Glucose Glucometer (BldC) [M ass/Vol]on 08-05-2024 Glucose [Mass/Vol] 372 mg/dL High 65-99 [facility] Glucose [Mass/Vol] 362 mg/dL High 65-99 [facility] Glucose [Mass/Vol] 376 mg/dL High 65-99 [facility] Glucose [Mass/Vol] 398 mg/dL High 65-99 [facility] HEMOGLOBINon 08-05-2024 Hemoglobin (Bld) [Mass/Vol] 11.6 g/dL Low 11.7-15.5 [facility] Comment on above: Performed By: #### Jaimee CH, 27390-5, CMP #### [facility] ([id number]) [address] [place] [address] 31927 #### ARUN #### [facility] ([id number]) [address], [address] [place] [address] Heparin unfractionated Chrom ogenic method Qn (PPP)on 08-05-2024 ANTI XA UFH 0.44 IU/mL Normal 0.30-0.70 [facility] Comment on above: Result Comment: Opti mal time for testing is 6 hrs post dosage This test is specific for monitoring patients on UFH, and is not recommended for use with other Anti-Xa medications. Performed By: #### Jaimee CH, 56756-1, CMP #### [facility] ([id number]) [address] [place] [address] 93155 #### HA1C #### [facility] ([id number]) [address], [address] [place] [address] MAGNESIUMon 08-05-2024 Magnesium [Mass/Vol] 2.1 mg/dL Normal 1.8-2.6 [facility] Comment on above: Performed By: #### C DIMA, 32353-6, CMP #### [facility] ([id number]) [address] [place] [address] 58338 #### HA1C #### [facility] ([id number]) [address] [facility], [address] [place] [address] MR BRAIN WO CONTon MR BRAIN WO [...] Pelayo MD on 08/05/2024 10:34 AM Normal [facility] PLATELET COUNT AND MPVon Platelet mean volume (Bld) [Entitic vol] 8.3 fL Normal 7-12 [facility] Comment on above: Performed By: #### C DIMA, 29610-0, CMP #### [facility] ([id number]) [address] [place] [address] 79255 #### HA1C #### [facility] ([id number]) [address] [facility], [address] [place] [address] Platelets (Bld) [#/Vol] 335 10*3/uL Normal 150-450 [facility] Comment on above: Performed By: #### Jaimee CH, 92427-2, CMP #### [facility] ([id number]) [address] [place] [address] 42055 #### HA1C #### [facility] ([id number]) [facility] [facility], [address] [place] [address] PROTIME AND INRon 08-05-2024 INR Coag (PPP) [Relative time] 1.0 {INR} Normal 0.8-1.1 [facility] Comment on above: Performed By: #### Jaimee CH, 83901-0, CMP #### [facility] ([id number]) [address] [place] [address] 96494 #### HA1C #### [facility] ([id number]) [address] [place] [address], [address] [place] [address] PT Coag (PPP) [Time] 11.7 s Normal 9.8-13.2 [facility] Comment on above: Result Comment: NEW REFERENCE RANGE Performed By: #### Jaimee CH, 08490-0, CMP #### [facility] ([id number]) [address] [place] [address] 40559 #### HA1C #### [facility] ([id number]) [facility], [address] [place] [address] aPTT Coag (PPP) [Time]on aPTT Coag (Bld) [Time] 81 s High 26-37 [facility] Comment on above: Result Comment: NEW REFERENCE RANGE Performed By: #### Jaimee CH, 18989-2, CMP #### [facility] ([id number]) [address] [place] [address] 48439 #### HA1C #### [facility] ([id number]) [address] [facility], [address] [place] [address] CBC AND AUTO DIFFon 08-04-20 24 ABSOLUTE BASOPHIL 0.0 X10E9/L Normal 0.0-0.2 [facility] Comment on above: Performed By: #### Jaimee BCA, CMP, 74104-9 ####[facility] ([id number])[address] [place], [place] [address]#### 11713-3, 2088-11 ####[facility] ([id number])[address] [place] [address], [address] [place] [address] ABSOLUTE NEUTROPHIL 2.8 X10E9/L Normal 1.5-6.6 [facility] Comment on above: Performed By: #### Jaimee BCA, CMP, ####[facility] ([id number])[address] [place], [place] [address]#### 47421-7, 2088-11 ####[facility] ([id number])[address] [place] [address], [address] [place] [address] Basophils/100 WBC (Bld) 0.4 % Normal [facility] Comment on above: Performed By: #### Jaimee BCA, CMP, ####[facility] ([id number])[address] [place] [address] 34426#### 01714-2, 2088-11 ####[facility] ([id number])Counts include [facility] beds at the [facility] [address] [place] [address]25 Eosinophils (Bld) [#/Vol] 0.2 10*3/uL Normal 0.0-0.4 [facility] Comment on above: Performed By: #### Jaimee BCA, CMP, ####[facility] ([id number])[address] [place] [address]#### 80817-7, 2088-11 ####[facility] ([id number])[address] [place] [address] Eosinophils/100 WBC (Bld) 2.8 % Normal [facility] Comment on above: Performed By: #### Jaimee CH CMP, 38924-6 ####[facility] ([id number])[address] [place] [address] 91964#### 95026-6, 2088-11 ####[facility] ([id number])[address] [place] [address], [address] [address] Erythrocyte distribution width (RBC) [Ratio] 15.1 % High 11.5-15.0 [facility] Comment on above: Performed By: #### Jaimee CH CMP, ####[facility] ([id number])[address] [place] [address] 56599#### 43312-2, 2088-11 ####[facility] ([id number])[address] [place] [address] Hematocrit (Bld) [Volume fraction] 33.6 % Low 35-47 [facility] Comment on above: Performed By: #### Jaimee CH CMP, ####[facility] ([id number])[address] [place] [address] 83816#### 97122-2, 2088-11 ####[facility] ([id number])Counts include 234 beds at the [facility] [address] [address] Hemoglobin (Bld) [Mass/Vol] 11.3 g/dL Low 11.7-15.5 [facility] Comment on above: Performed By: #### Jaimee CH CMP, ####[facility] ([id number])[address] [place] [address] 92675#### 22141-3, 2088-11 ####[facility] ([id number])[address], [address] [place] [address] 10819 Lymphocytes (Bld) [#/Vol] 2.3 10*3/uL Normal 1.0-3.5 [facility] Comment on above: Performed By: #### C BCA, CMP, ####[facility] ([id number])[address] [place] [address] 19459#### 80613-4, 2088-11 ####[facility] ([id number])[address] [address] Lymphocytes/100 WBC (Bld) 41.0 % Normal [facility] Comment on above: Performed By: #### Jaimee BCA, CMP, ####[facility] ([id number])[address] [place] [address] 88971#### 82889-4, 2088-11 ####[facility] ([id number])[address] [facility] [address] [place] [address] 74827 MCH (RBC) [Entitic mass] 28.4 pg Normal 27-34 [facility] Comment on above: Performed By: #### Jaimee BCA, CMP, ####[facility] ([id number])[address] [place] [address] 05568#### 28707-7, 2088-11 ####[facility] ([id number])[address] [facility], [address] [place] [address] 21575 MCHC (RBC) [Mass/Vol] 33.6 g/dL Normal 32-36 [facility] Comment on above: Performed By: #### C BCA, CMP, ####[facility] ([id number])[address] [place] [address] 34527#### 82838-6, 2088-11 ####[facility] ([id number])[address] [facility], [address] [place] [address] MCV (RBC) [Entitic vol] 85 fL Normal 80-100 [facility] Comment on above: Performed By: #### C BCA, CMP, ####[facility] ([id number])[address] [place] [address] 42415#### 70244-3, 2088-11 ####[facility] ([id number])[address] [place] [address], [address] [place] [address] Monocytes (Bld) [#/Vol] 0.4 10*3/uL Normal 0-0.9 [facility] Comment on above: Performed By: #### Jaimee BCA, CMP, ####[facility] ([id number])[address] [place] [address] 98217#### 97860-5, 2088-11 ####[facility] ([id number])[address] [place] [address], [address] [place] [address] 30619 Monocytes/100 WBC (Bld) 6.6 % Normal [facility] Comment on above: Performed By: #### Jaimee BCA, CMP, ####[facility] ([id number])[address] [place] [address] 09078#### 58980-0, 2088-11 ####[facility] ([id number])[address] [facility], [address] [place] [address] 40042 Neutrophils/100 WBC (Bld) 49.2 % Normal [facility] Comment on above: Performed By: #### Jaimee BCA, CMP, ####[facility] ([id number])[address] [place] [address]#### 98821-4, 2088-11 ####[facility] ([id number])[address] [place] [address], [address] [place] [address] 66027 Platelet mean volume (Bld) [Entitic vol] 8.3 fL Normal 7-12 [facility] Comment on above: Performed By: #### Jiamee CH CMP, ####[facility] ([id number])[address] [place] [address] 40151#### 93782-3, 2088-11 ####[facility] ([id number])[address] [place] [address], [address] [place] [address] 06928 Platelets (Bld) [#/Vol] 311 10*3/uL Normal 150-450 [facility] Comment on above: Performed By: #### Jaimee CH CMP, ####[facility] ([id number])[address] [place] [address] 27978#### 44726-4, 2088-11 ####[facility] ([id number])[address] [place] [address], [address] [address] RBC COUNT 3.97 X10E12/L Normal 3.80-5.20 [facility] Comment on above: Performed By: #### Jaimee CH CMP, ####[facility] ([id number])[address] [place] [address] 44337#### 26697-1, 2088-11 ####[facility] ([id number])[address] [place] [address], [address] [place] [address] 76064 WBC (Bld) [#/Vol] 5.7 10*3/uL Normal 4.0-11.0 [facility] Comment on above: Performed By: #### Jaimee CH, CMP, ####[facility] ([id number])[address] [place] [address] 80456#### 41415-3, 2088-11 ####[facility] ([id number])[address] [facility], [address] [place] [address] COMPREHENSIVE METABOLIC PANE Chay 08-04-2024 Albumin [Mass/Vol] 3.5 g/dL Normal 3.2-5.3 [facility] Comment on above: Performed By: #### C BCA, CMP, ####[facility] ([id number])[address] [place] [address] 48153#### 46609-7, 2088-11 ####[facility] ([id number])[address] [facility], [address] [place] [address] ALP [Catalytic activity/Vol] 85 U/L Normal 39-130 [facility] Comment on above: Performed By: #### C BCA, CMP, ####[facility] ([id number])[address] [place] [address] 63305#### 25924-3, 2088-11 ####[facility] ([id number])[address] [facility], [address] [place] [address] 24699 ALT [Catalytic activity/Vol] 15 U/L Normal 0-31 [facility] Comment on above: Performed By: #### C BCA, CMP, ####[facility] ([id number])[address] [place] [address] 75093#### 19315-0, 2088-11 ####[facility] ([id number])[address] [facility], [address] [facility] [place] [address] Anion gap [Moles/Vol] 9 mmol/L Normal 5-15 [facility] Comment on above: Performed By: #### C BCA, CMP, ####[facility] ([id number])[address] [place] [address] 54537#### 61367-4, 2088-11 ####[facility] ([id number])[address] [facility], [address] [place] [address] 74341 AST [Catalytic activity/Vol] 13 U/L Normal 0-41 [facility] Comment on above: Performed By: #### C BCA, CMP, 59131-9 ####[facility] ([id number])[address] [place] [address] 78524#### 59948-8, 2088-11 ####[facility] ([id number])[address] [place] [address], [address] [place] [address]653 Bilirubin [Mass/Vol] 0.5 mg/dL Normal 0.3-1.2 [facility] Comment on above: Performed By: #### C BCA, CMP, ####[facility] ([id number])[address] [place] [address] 62967#### 72084-3, 2088-11 ####[facility] ([id number])[address] [place] [address], [address] [place] [address] Calcium [Mass/Vol] 9.0 mg/dL Normal 8.5-10.5 [facility] Comment on above: Performed By: #### C BCA, CMP, ####[facility] ([id number])[address] [place] [address] 35432#### 37014-0, 2088-11 ####[facility] ([id number])[address] [place] [address], [address] [place] [address] Chloride [Moles/Vol] 103 mmol/L Normal 98-109 [facility] Comment on above: Performed By: #### C BCA, CMP, ####[facility] ([id number])[address] [place] [address] 58425#### 44741-7, 2088-11 ####[facility] ([id number])[address] [facility], [address] [address] CO2 [Moles/Vol] 21 mmol/L Low 22-32 [facility] Comment on above: Performed By: #### C GERMANIA CH, 41221-7 ####[facility] ([id number])[address] [place] [address] 07853#### 46789-6, 2088-11 ####[facility] ([id number])[address] [address] Creatinine [Mass/Vol] 1.85 mg/dL High 0.40-1.00 [facility] Comment on above: Result Comment: METH OD TRACEABLE TO IDMS STANDARD Performed By: #### C DIMA, GERMANIA, ####[facility] ([id number])[address] [place] [address] 82646#### 28731-4, 2088-11 ####[facility] ([id number])[address] [address] GFR/1.73 sq M.predicted among non-blacks MDRD (S/P/Bld) [Vol rate/Area] 32 mL/min/{1.73_m2} Low >59 [facility] Comment on above: Result Comment: Reported eGFR is based on the CKD-EPI 2020 equation that does not use a race coefficient. Performed By: #### C BCA, CMP, ####[facility] ([id number])[address] [place] [address] 49035#### 50624-6, 2088-11 ####[facility] ([id number])[address] [address] Glucose [Mass/Vol] 185 mg/dL High 65-99 [facility] Comment on above: Performed By: #### C BCA, CMP, ####[facility] ([id number])[address] [place] [address] 92592#### 38615-1, 2088-11 ####[facility] ([id number])[address] [address] Potassium [Moles/Vol] 4.1 mmol/L Normal 3.5-5.0 [facility] Comment on above: Performed By: #### C BCA, CMP, ####[facility] ([id number])[address] [place] [address] 19758#### 26290-1, 2088-11 ####[facility] ([id number])[address], [address] [place] [address] Protein [Mass/Vol] 6.7 g/dL Normal 6.0-8.0 [facility] Comment on above: Performed By: #### Jaimee CH, CMP, ####[facility] ([id number])[address] [place] [address] 77946#### 05581-4, 2088-11 ####[facility] ([id number])0 [address], [address] [place] [address] Sodium [Moles/Vol] 133 mmol/L Low 134-146 [facility] Comment on above: Performed By: #### C BCA, CMP, ####[facility] ([id number])[address] [place] [address] 95147#### 29371-3, 2088-11 ####[facility] ([id number])[address], [address] [address] Urea nitrogen [Mass/Vol] 39 mg/dL High 5-23 [facility] Comment on above: Performed By: #### Jaimee CH, [place], 93146-1 ####[facility] ([id number])[address] [place] [address] 02158#### 23463-7, 1 ####[facility] ([id number])[address] [facility], [address] [address] DIRECT LDLon 08-04-2024 Cholesterol in LDL [Mass/Vol] 105 mg/dL Normal <130 [facility] Comment on above: Result Comment: LDL <100 mg/dL - Desirable LDL 130-159 mg/dL - Borderline High Risk LDL >160 mg/dL - High Risk Performed By: #### C DIMA, [place], 79395-9 ####[facility] ([id number])[address] [place] [address] 21760#### 22391-4, 2088-11 ####[facility] ([id number])[address], [address] [address] Glucose Glucometer (BldC) [M ass/Vol]on 08-04-2024 Glucose [Mass/Vol] 221 mg/dL High 65-99 [facility] Glucose [Mass/Vol] 247 mg/dL High 65-99 [facility] Glucose [Mass/Vol] 253 mg/dL High 65-99 [facility] Lipid 1996 panelon Cholesterol [Mass/Vol] 240 mg/dL High 150-200 [facility] Comment on above: Performed By: #### Jaimee CH, CMP, 87557-7 ####[facility] ([id number])[address] [place] [address] 63093#### 03161-3, 2088-11 ####[facility] ([id number])[address] [address] [place] [address] Cholesterol in HDL [Mass/Vol] 38 mg/dL Low >39 [facility] Comment on above: Result Comment: HDL <40 mg/dL - High Risk HDL > or = 40mg/dL- Desirable HDL >60 mg/dL - Negative Risk Performed By: #### Jaimee CH CMP, ####[facility] ([id number])[address] [place] [address] 31730#### 20046-2, 2088-11 ####[facility] ([id number])[address] [address] Cholesterol in VLDL [Mass/Vol] 156 mg/dL High 0-30 [facility] Comment on above: Performed By: #### Jaimee CH, [facility], ####[facility] ([id number])[address] [place] [address] 74198#### 85992-2, 2088-11 ####[facility] ([id number])[address] [address] CHOLESTEROL:HDL 6.3 High 1.0-5.0 [facility] Comment on above: Performed By: #### Jaimee CH, CMP, ####[facility] ([id number])[address] [place] [address] 36566#### 49576-6, 2088-11 ####[facility] ([id number])[address] [address] LDL (CALC) RESULT NOT REPORTED DUE TO HIGH TRIGLYCERIDE Normal <130 [facility] Comment on above: Performed By: #### C BCA, CMP, 59568-9 ####[facility] ([id number])[address] [place] [address] 12695#### 29676-5, 2088-11 ####[facility] ([id number])[address] [facility], [address] [place] [address] Triglyceride [Mass/Vol] 782 mg/dL High 27-150 [facility] Comment on above: Performed By: #### C BCA, CMP, ####[facility] ([id number])[address] [place] [address] 69093#### 66236-1, 2088-11 ####[facility] ([id number])[address] [facility], [address] [place] [address] MAGNESIUMon 08-04-2024 Magnesium [Mass/Vol] 2.3 mg/dL Normal 1.8-2.6 [facility] Comment on above: Performed By: #### C DIMA, 75404-2, CMP #### [facility] ([id number]) [address] [place] [address]10 #### HA1C #### [facility] ([id number]) [address] [facility], [address] [place] [address] Magnesium [Mass/Vol] 1.6 mg/dL Low 1.8-2.6 [facility] Comment on above: Performed By: #### C BCA, CMP, 25629-9 ####[facility] ([id number])[address] [place] [address] 27545#### 64723-6, 2088-11 ####[facility] ([id number])[address] [facility], [address] [place] [address] CBC AND AUTO DIFFon 09-28-20 24 ABSOLUTE BASOPHIL 0.1 X10E9/L Normal 0.0-0.2 [facility] Comment on above: Performed By: #### Jaimee CH, 70350-2, CMP #### [facility] ([id number]) [address] [place] [address] 8[address]16 #### HA1C #### [facility] ([id number]) [address], [address] [place] [address] ABSOLUTE NEUTROPHIL 4.2 X10E9/L Normal 1.5-6.6 [facility] Comment on above: Performed By: #### Jaimee CH, 27103-1, CMP #### [facility] ([id number]) [address] [place] [address] #### HA1C #### [facility] ([id number]) [address], [address] [place] [address] Basophils/100 WBC (Bld) 0.7 % Normal [facility] Comment on above: Performed By: #### Jaimee CH, 48168-7, CMP #### [facility] ([id number]) [address] [place] [address] 98611 #### HA1C #### [facility] ([id number]) [address], [address] [place] [address] Eosinophils (Bld) [#/Vol] 0.1 10*3/uL Normal 0.0-0.4 [facility] Comment on above: Performed By: #### Jaimee CH, 74563-5, CMP #### [facility] ([id number]) [address] [place] [address] #### HA1C #### [facility] ([id number]) [address], [address] [place] [address] Eosinophils/100 WBC (Bld) 1.9 % Normal [facility] Comment on above: Performed By: #### C DIMA, 40133-4, CMP #### [facility] ([id number]) [address] [place] [address] 12656 #### HA1C #### [facility] ([id number]) [address], [address] [place] [address] Erythrocyte distribution width (RBC) [Ratio] 15.1 % High 11.5-15.0 [facility] Comment on above: Performed By: #### C DIMA, 85785-3, CMP #### [facility] ([id number]) [address] [place] [address] #### HA1C #### [facility] ([id number]) [address], [address] [place] [address] Hematocrit (Bld) [Volume fraction] 35.2 % Normal 35-47 [facility] Comment on above: Performed By: #### C DIMA, 32227-9, CMP #### [facility] ([id number]) [address] [place] [address] 78764 #### HA1C #### [facility] ([id number]) [address], [address] [place] [address] Hemoglobin (Bld) [Mass/Vol] 11.9 g/dL Normal 11.7-15.5 [facility] Comment on above: Performed By: #### C DIMA, 56838-3, CMP #### [facility] ([id number]) [address] [place] [address] 6[address]12 #### HA1C #### [facility] ([id number]) [address], [address] [place] [address] Lymphocytes (Bld) [#/Vol] 2.6 10*3/uL Normal 1.0-3.5 [facility] Comment on above: Performed By: #### C DIMA, 25251-7, CMP #### [facility] ([id number]) [address] [place] [address] 91665 #### ARUN #### [facility] ([id number]) [address], [address] [place] [address] Lymphocytes/100 WBC (Bld) 34.7 % Normal [facility] Comment on above: Performed By: #### Jaimee CH, 03144-6, CMP #### [facility] ([id number]) [address] [place] [address] 31669 #### ARUN #### [facility] ([id number]) [address], [address] [place] [address] MCH (RBC) [Entitic mass] 28.8 pg Normal 27-34 [facility] Comment on above: Performed By: #### Jaimee CH, 16814-9, CMP #### [facility] ([id number]) [address] [place] [address] 45997 #### ARUN #### [facility] ([id number]) [address], [address] [place] [address] MCHC (RBC) [Mass/Vol] 33.8 g/dL Normal 32-36 [facility] Comment on above: Performed By: #### Jaimee CH, 02325-1, CMP #### [facility] ([id number]) [address] [place] [address] 85222 #### HALulu #### [facility] ([id number]) [address], [address] [place] [address] MCV (RBC) [Entitic vol] 85 fL Normal 80-100 [facility] Comment on above: Performed By: #### Jaimee CH, 41016-9, CMP #### [facility] ([id number]) [address] [place] [address] 42149 #### HA1C #### [facility] ([id number]) [address] [place] [address], [address] [place] [address] Monocytes (Bld) [#/Vol] 0.5 10*3/uL Normal 0-0.9 [facility] Comment on above: Performed By: #### Jaimee CH, 20794-9, CMP #### [facility] ([id number]) [address] [place] [address] 99289 #### HA1C #### [facility] ([id number]) [address] [place] [address], [address] [place] [address] Monocytes/100 WBC (Bld) 6.3 % Normal [facility] Comment on above: Performed By: #### Jaimee CH, 39596-0, CMP #### [facility] ([id number]) [address] [place] [address] 64896 #### HA1C #### [facility] ([id number]) [address] [place] [address], [address] [place] [address] Neutrophils/100 WBC (Bld) 56.4 % Normal [facility] Comment on above: Performed By: #### Jaimee CH, 38646-4, CMP #### [facility] ([id number]) [address] [place] [address] 48413 #### HA1C #### [facility] ([id number]) [address] [place] [address], [address] [place] [address] Platelet mean volume (Bld) [Entitic vol] 8.4 fL Normal 7-12 [facility] Comment on above: Performed By: #### Jaimee CH, 98549-4, CMP #### [facility] ([id number]) [address] [place] [address] 34079 #### HA1C #### [facility] ([id number]) [address] [facility], [address] [place] [address] Platelets (Bld) [#/Vol] 344 10*3/uL Normal 150-450 [facility] Comment on above: Performed By: #### Jaimee CH, 22240-8, CMP #### [facility] ([id number]) [address] [place] [address] 00226 #### HA1C #### [facility] ([id number]) [address] [facility], [address] [place] [address] RBC COUNT 4.13 X10E12/L Normal 3.80-5.20 [facility] Comment on above: Performed By: #### Jaimee CH, 96768-2, CMP #### [facility] ([id number]) [address] [place] [address] 30751 #### ARUN #### [facility] ([id number]) [address] [place] [address], [address] [place] [address] WBC (Bld) [#/Vol] 7.5 10*3/uL Normal 4.0-11.0 [facility] Comment on above: Performed By: #### Jaimee CH, 97217-8, CMP #### [facility] ([id number]) [address] [place] [address] 24015 #### HA1C #### [facility] ([id number]) [address] [place] [address], [address] [place] [address] COMPREHENSIVE METABOLIC PANE Chay 08-03-2024 Albumin [Mass/Vol] 3.7 g/dL Normal 3.2-5.3 [facility] Comment on above: Performed By: #### Jaimee CH, 84621-8, CMP #### [facility] ([id number]) [address] [place] [address] 02949 #### HA1C #### [facility] ([id number]) [address], [address] [place] [address] ALP [Catalytic activity/Vol] 96 U/L Normal 39-130 [facility] Comment on above: Performed By: #### Jaimee CH, 65792-7, CMP #### [facility] ([id number]) [address] [place] [address] 30553 #### HA1C #### [facility] ([id number]) [address], [address] [place] [address] ALT [Catalytic activity/Vol] 17 U/L Normal 0-31 [facility] Comment on above: Performed By: #### Jaimee CH, 86054-3, CMP #### [facility] ([id number]) [address] [place] [address] 06439 #### HALulu #### [facility] ([id number]) [address], [address] [place] [address] Anion gap [Moles/Vol] 11 mmol/L Normal 5-15 [facility] Comment on above: Performed By: #### Jaimee CH, 09700-7, CMP #### [facility] ([id number]) [address] [place] [address] 79766 #### HALulu #### [facility] ([id number]) [address], [address] [place] [address] AST [Catalytic activity/Vol] 14 U/L Normal 0-41 [facility] Comment on above: Performed By: #### Jaimee CH, 99013-6, CMP #### [facility] ([id number]) [address] [place] [address] 99018 #### HA1C #### [facility] ([id number]) [address], [address] [place] [address] Bilirubin [Mass/Vol] 0.6 mg/dL Normal 0.3-1.2 [facility] Comment on above: Performed By: #### C BCA, 85418-6, CMP #### [facility] ([id number]) [address] [place] [address] 74871 #### HA1C #### [facility] ([id number]) [address], [address] [place] [address] Calcium [Mass/Vol] 9.1 mg/dL Normal 8.5-10.5 [facility] Comment on above: Performed By: #### C BCA, 86918-9, CMP #### [facility] ([id number]) [address] [place] [address] 21443 #### HA1C #### [facility] ([id number]) [address], [address] [place] [address] Chloride [Moles/Vol] 99 mmol/L Normal 98-109 [facility] Comment on above: Performed By: #### C BCA, 27569-9, CMP #### [facility] ([id number]) [address] [place] [address] 24334 #### HA1C #### [facility] ([id number]) [address], [address] [place] [address] CO2 [Moles/Vol] 20 mmol/L Low 22-32 [facility] Comment on above: Performed By: #### C BCA, 71699-5, CMP #### [facility] ([id number]) [address] [place] [address] 50724 #### HA1C #### [facility] ([id number]) [address], [address] [place] [address] Creatinine [Mass/Vol] 2.19 mg/dL High 0.40-1.00 [facility] Comment on above: Result Comment: METH OD TRACEABLE TO IDMS STANDARD Performed By: #### C DIMA, 89745-2, CMP #### [facility] ([id number]) [address] [place] [address] 49696 #### HA1C #### [facility] ([id number]) [address], [address] [place] [address] GFR/1.73 sq M.predicted among non-blacks MDRD (S/P/Bld) [Vol rate/Area] 26 mL/min/{1.73_m2} Low >59 [facility] Comment on above: Result Comment: Reported eGFR is based on the CKD-EPI 2020 equation that does not use a race coefficient. Performed By: #### C DIMA, 34355-6, CMP #### [facility] ([id number]) [address] [place] [address] 60048 #### HA1C #### [facility] ([id number]) [address], [address] [place] [address] Glucose [Mass/Vol] 402 mg/dL Critically high 65-99 [facility] Comment on above: Performed By: #### C DIMA, 44159-6, CMP #### [facility] ([id number]) [address] [place] [address] 66717 #### HA1C #### [facility] ([id number]) [address], [address] [place] [address] Potassium [Moles/Vol] 4.4 mmol/L Normal 3.5-5.0 [facility] Comment on above: Performed By: #### C DIMA, 36480-4, CMP #### [facility] ([id number]) [address] [place] [address] 08373 #### HA1C #### [facility] ([id number]) [address], [address] [place] [address] Protein [Mass/Vol] 7.7 g/dL Normal 6.0-8.0 [facility] Comment on above: Performed By: #### C DIMA, 95708-0, CMP #### [facility] ([id number]) [address] [place] [address] 41571 #### HA1C #### [facility] ([id number]) [address] [facility], [address] [place] [address] Sodium [Moles/Vol] 130 mmol/L Low 134-146 [facility] Comment on above: Performed By: #### C DIMA, 14727-3, CMP #### [facility] ([id number]) [address] [place] [address] 06394 #### HA1C #### [facility] ([id number]) [address] [facility], [address] [place] [address] Urea nitrogen [Mass/Vol] 44 mg/dL High 5-23 [facility] Comment on above: Performed By: #### C DIMA, 21257-7, CMP #### [facility] ([id number]) [address] [place] [address] 92147 #### HA1C #### [facility] ([id number]) [address] [facility], [address] [place] [address] CT BRAIN WO CONT STROKE ALER Ton [...] Contreras MD on 08/03/2024 5:07 PM Normal [facility] CT CTA CAROTIDon 08-03-2024 CT CTA [...] Pack MD on 08/03/2024 5:34 PM Normal [facility] CT CTA HEADon 08-03-[address] CTA HEAD CTA HEAD HISTORY: Blurry vision, worst headache of life COMPARISON: 12/25/2021 TECHNIQUE: CT angiogram performed following intravenous administration of 100 mL Omnipaque 350. Coronal and sagittal and 3-D volume rendered maximum intensity projection images generated and reviewed under concurrent physician supervision. The [place] Symptomatic Carotid Endarterectomy Trial (NASCET) method for [...] Contreras MD on 08/03/2024 5:29 PM Normal [facility] Glucose Glucometer (BldC) [M ass/Vol]on 08-03-2024 Glucose [Mass/Vol] 227 mg/dL High 65-99 [facility] Glucose [Mass/Vol] 369 mg/dL High 65-99 [facility] HGB A1C (GLYCO-HGB)on 2023 Glucose [Mass/Vol] 226 mg/dL Normal [facility] Comment on above: Performed By: #### C [facility], 86394-1, CMP #### [facility] ([id number]) [address] [place] [address] 23977 #### HA1C #### [facility] ([id number]) [address] [place] [address], [address] [place] [address] HbA1c (Bld) [Mass fraction] 9.5 % High 4.4-5.6 [facility] Comment on above: Result Comment: NOTE ADA Guidelines Result HgbA1c Normal : less than 5.7 % Prediabetes : 5.7 % to 6.4 % Diabetes : > 6.4 % Use with caution in patients with abnormal hemoglobin variants as the half-life of red blood cells and in vivo glycation rates are affected. Performed By: #### C BCA, 76774-6, CMP #### [facility] ([id number]) [address] [place] [address] 99299 #### HA1C #### [facility] ([id number]) [address] [place] [address], [address] [place] [address] THYROID PROFILEon 08-03-2024 Free T4 [Mass/Vol] 0.81 ng/dL Normal 0.61-1.60 [facility] Comment on above: Performed By: #### 8 9579-7, THYR ####[facility] ([id number])[address] [place] [address] TSH 3.32 uIU/mL Normal 0.49-4.67 [facility] Comment on above: Performed By: #### 8 9579-7, THYR ####[facility] ([id number])[address] [place] [address] Troponin I.cardiac High sens itivity method [Mass/Vol]on 08-03-2024 1 HOUR TROP I, HIGH SENSITIVITY 3 ng/L Normal <16 [facility] Comment on above: Performed By: #### 8 9579-7, THYR #### [facility] ([id number]) [address] [place] [address], [place] [address] TROPONIN I, HIGH SENSITIVITY 4 ng/L Normal <16 [facility] Comment on above: Performed By: #### C BCA, 73456-3, CMP #### [facility] ([id number]) [address] [place] [address], [place] [address] #### HA1C #### [facility] ([id number]) [address] [place] [address], [address] [place] [address] URINALYSISon 08-03-2024 Bilirubin Ql (U) Negative Normal NEG [facility] Comment on above: Performed By: #### U A ####[facility] ([id number])[address] [place] [address] BLOOD/HGB Negative Normal NEG [facility] Comment on above: Performed By: #### U A ####[facility] ([id number])[address] [place] [address], [place] [address] Color (U) YELLOW Normal YELLOW [facility] Comment on above: Performed By: #### U A ####[facility] ([id number])[address] [place] [address] 51931 Glucose Ql (U) 500 mg/dL Abnormal NEG [facility] Comment on above: Performed By: #### U A ####[facility] ([id number])[address] [place] [address], [place] [address] Ketones Ql (U) Negative Normal NEG [facility] Comment on above: Performed By: #### U A ####[facility] ([id number])[address] [place] [address], [place] [address] Leukocyte esterase Test strip Ql (U) Trace Abnormal NEG [facility] Comment on above: Performed By: #### U A ####[facility] ([id number])[address] [place] [address] Nitrite Ql (U) Negative Normal NEG [facility] Comment on above: Performed By: #### U A ####[facility] ([id number])[address] [place] [address] 674[address] pH (U) 6.0 [pH] Normal 5.0-8.5 [facility] Comment on above: Performed By: #### U A ####[facility] ([id number])[address] [place] [address] 20441 Protein Ql (U) Negative Normal NEG [facility] Comment on above: Performed By: #### U A ####[facility] ([id number])[address] [place] [address]5634 R.B.CELLS 1 /hpf Normal 0-5 [facility] Comment on above: Performed By: #### U A ####[facility] ([id number])[address] [place] [address] 49[address] Specific gravity (U) [Rel density] 1.010 Normal 1.003-1.035 [facility] Comment on above: Performed By: #### U A ####[facility] ([id number])[address] [place] [address] 42014 SQUAMOUS EPITHELIUM 3 /hpf Normal 0-5 [facility] Comment on above: Performed By: #### U A ####[facility] ([id number])[address] [place] [address] 45566 TURBIDITY CLEAR Normal CLEAR [facility] Comment on above: Performed By: #### U A ####[facility] ([id number])[address] [place] [address] 85060 Urobilinogen Qn (U) 0.2 {Juanita'U}/dL Normal <1.1 [facility] Comment on above: Performed By: #### U A ####[facility] ([id number])[address] [place] [address] 94674 W.B.CELLS 4 /hpf Normal 0-5 [facility] Comment on above: Performed By: #### U A ####[facility] ([id number])[address] [place] [address]48[address] URN MACROSCOPIC NURon 2023 BILIRUBIN LE Negative Normal NEG [facility] Comment on above: Performed By: #### N UM #### [facility] ([id number]) [address] [place] [address]689 BLOOD/HGB LE Negative Normal NEG [facility] Comment on above: Performed By: #### N UM #### [facility] ([id number]) [address] [place] [address] 15398 GLUCOSE LE 500 mg/dL Abnormal NEG [facility] Comment on above: Performed By: #### N UM #### [facility] ([id number]) [address] [place] [address] [place] [address] KETONES LE Negative Normal NEG [facility] Comment on above: Performed By: #### N UM #### [facility] ([id number]) [address] [place] [address] LEUKOCYTE ESTERASE LE Small Abnormal NEG [facility] Comment on above: Performed By: #### N UM #### [facility] ([id number]) [address] [place] [address] NITRITE LE Negative Normal NEG [facility] Comment on above: Performed By: #### N UM #### [facility] ([id number]) [address] [place] [address] PH LE 5.5 Normal 5.0-8.5 [facility] Comment on above: Performed By: #### N UM #### [facility] ([id number]) [address] [place] [address] PROTEIN LE Negative Normal NEG [facility] Comment on above: Performed By: #### N UM #### [facility] ([id number]) [address] [place] [address] SPECIFIC GRAVITY LE 1.010 Normal 1.003-1.035 [facility] Comment on above: Performed By: #### N UM #### [facility] ([id number]) [address] [place] [address] UROBILINOGEN LE 0.2 eu/dL Normal <1.1 [facility] Comment on above: Performed By: #### N UM #### [facility] ([id number]) [address] [place] [address]14 PTH INTACTon 03-11-2023 PTH, Intact 31 pg/mL Normal 15-65 [facility] Comment on above: Performed By: #### U MICRO, ERUR #### [facility] [address] [place] [address] Dr. Delmer Rea FERRITINon 03-10-2023 Ferritin [Mass/Vol] 35.0 ng/mL Normal 8.0-252.0 [facility] Comment on above: Performed By: #### L IPA, DLDL, CON, LIPID, T7, CMP, TSH #### [facility] [address] [place] [address] Dr. Delmer Rea HEMOGRAM AND PLATELon 2022 Hematocrit (Bld) [Volume fraction] 35.5 % Critically low 36.0-48.0 [facility] Comment on above: Performed By: #### L IPA, DLDL, CON, LIPID, T7, CMP, TSH #### [facility] [address] [place] [address] Dr. Delmer Rea Hemoglobin (Bld) [Mass/Vol] 11.6 g/dL Critically low 12.0-16.0 [facility] Comment on above: Performed By: #### L IPA, DLDL, CON, LIPID, T7, CMP, TSH #### [facility] [address] [place] [address] Dr. Delmer Rea MCH (RBC) [Entitic mass] 27.3 pg Normal 26.7-34.0 [facility] Comment on above: Performed By: #### L IPA, DLDL, CON, LIPID, T7, CMP, TSH #### [facility] [address] [place] [address] Dr. Delmer Rea MCHC (RBC) [Mass/Vol] 32.7 g/dL Normal 29.9-35.2 [facility] Comment on above: Performed By: #### L IPA, DLDL, CON, LIPID, T7, CMP, TSH #### [facility] [address] [place] [address] Dr. Delmer Rea MCV (RBC) [Entitic vol] 83.5 fL Normal 81.0-99.0 [facility] Comment on above: Performed By: #### L IPA, DLDL, CON, LIPID, T7, CMP, TSH #### [facility] [address] [place] [address] Dr. Delmer Rea PLT 273 103/ul Normal 150-450 [facility] Comment on above: Performed By: #### L IPA, DLDL, CON, LIPID, T7, CMP, TSH #### [facility] [address] [place] [address] Dr. Delmer Rea RBC 4.25 106/ul Normal 4.20-5.40 [facility] Comment on above: Performed By: #### L IPA, DLDL, CON, LIPID, T7, CMP, TSH #### [facility] [address] [place] [address] Dr. Delmer Rea WBC 5.5 103/ul Normal 4.0-11.0 [facility] Comment on above: Performed By: #### L IPA, DLDL, CON, LIPID, T7, CMP, TSH #### [facility] [address] [place] [address] Dr. Delmer Rea IRON AND TIBCon 03-10-2023 % SATURATION 13.6 % Normal [facility] Comment on above: Performed By: #### L IPA, DLDL, CON, LIPID, T7, CMP, TSH #### [facility] [address] [address] [address] Delmer Rea Iron [Mass/Vol] 61.0 ug/dL Normal 50.0-170.0 [facility] Comment on above: Performed By: #### L IPA, DLDL, CON, LIPID, T7, CMP, TSH #### [facility] [address] [address] [address] Delmer Rea TIBC DIRECT 447.0 ug/dL Normal 250.0-450.0 [facility] Comment on above: Performed By: #### L IPA, DLDL, CON, LIPID, T7, CMP, TSH #### [facility] [address] [place] [address] Dr. Delmer Rea MAGNESIUMon 03-10-2023 Magnesium [Mass/Vol] 1.7 mg/dL Critically low 1.8-2.4 [facility] Comment on above: Performed By: #### L IPA, DLDL, CON, LIPID, T7, CMP, TSH #### [facility] [address] [address] [address] Delmer Rea PHOSPHORUSon 03-10-2023 Phosphate [Mass/Vol] 4.9 mg/dL Critically high 2.6-4.7 [facility] Comment on above: Performed By: #### L IPA, DLDL, CON, LIPID, T7, CMP, TSH #### [facility] [address] [address] [address] Delmer Rea PROF 14(COMP METB)on 023 Albumin [Mass/Vol] 3.4 g/dL Normal 3.4-5.0 [facility] Comment on above: Performed By: #### L IPA, DLDL, CON, LIPID, T7, CMP, TSH #### [facility] [address] [place] [address] Dr. Delmer Rea Albumin/Globulin [Mass ratio] 0.8 {ratio} Normal [facility] Comment on above: Performed By: #### L IPA, DLDL, CON, LIPID, T7, CMP, TSH #### [facility] [address] [place] [address] Dr. Delmer Rea ALP [Catalytic activity/Vol] 102 U/L Normal 46-116 [facility] Comment on above: Performed By: #### L IPA, DLDL, CON, LIPID, T7, CMP, TSH #### [facility] [address] [place] [address] Dr. Delmer Rea ALT [Catalytic activity/Vol] 28 U/L Normal 14-59 [facility] Comment on above: Performed By: #### L IPA, DLDL, CON, LIPID, T7, CMP, TSH #### [facility] [address] [place] [address] Dr. Delmer Rea Anion gap [Moles/Vol] 15.1 mmol/L Normal [facility] Comment on above: Performed By: #### L IPA, DLDL, CON, LIPID, T7, CMP, TSH #### [facility] [address] [place] [address] Dr. Delmer Rea AST [Catalytic activity/Vol] 16 U/L Normal 15-37 [facility] Comment on above: Performed By: #### L IPA, DLDL, CON, LIPID, T7, CMP, TSH #### [facility] [address] [place] [address] Dr. Delmer Rea Bilirubin [Mass/Vol] 0.5 mg/dL Normal 0.2-1.0 [facility] Comment on above: Performed By: #### L IPA, DLDL, CON, LIPID, T7, CMP, TSH #### [facility] [address] [place] [address] Dr. Delmer Rea Calcium [Mass/Vol] 9.5 mg/dL Normal 8.5-10.1 [facility] Comment on above: Performed By: #### L IPA, DLDL, CON, LIPID, T7, CMP, TSH #### [facility] [address] [place] [address] Dr. Delmer Rea Chloride [Moles/Vol] 100 mmol/L Normal 98-107 [facility] Comment on above: Performed By: #### L IPA, DLDL, CON, LIPID, T7, CMP, TSH #### [facility] [address] [address] [address] Delmer Rea CO2 [Moles/Vol] 23.4 mmol/L Normal 21.0-32.0 [facility] Comment on above: Performed By: #### L IPA, DLDL, CON, LIPID, T7, CMP, TSH #### [facility] [address] [place] [address] Dr. Delmer Rea Creatinine [Mass/Vol] 1.86 mg/dL Critically high 0.55-1.02 [facility] Comment on above: Performed By: #### L IPA, DLDL, CON, LIPID, T7, CMP, TSH #### [facility] [address] [place] [address] Dr. Delmer Rea EGFR-AF MONEGASQUE 35 mL/min/1.73m2 Critically low >=60 [facility] Comment on above: Performed By: #### L IPA, DLDL, CON, LIPID, T7, CMP, TSH #### [facility] [address] [place] [address] Dr. Delmer Rea EGFR-NON AF MONEGASQUE 29 mL/min/1.73m2 Critically low >=60 [facility] Comment on above: Performed By: #### L IPA, DLDL, CON, LIPID, T7, CMP, TSH #### [facility] [address] [place] [address] Dr. Delmer Rea Globulin (S) [Mass/Vol] 4.3 g/dL Normal [facility] Comment on above: Performed By: #### L IPA, DLDL, CON, LIPID, T7, CMP, TSH #### [facility] [address] [place] [address] Dr. Delmer Rea Glucose [Mass/Vol] 197 mg/dL Critically high 74-106 [facility] Comment on above: Performed By: #### L IPA, DLDL, CON, LIPID, T7, CMP, TSH #### [facility] [address] [address] [address] Delmer Rea Potassium [Moles/Vol] 4.5 mmol/L Normal 3.5-5.1 [facility] Comment on above: Performed By: #### L IPA, DLDL, CON, LIPID, T7, CMP, TSH #### [facility] [address] [place] [address] Dr. Delmer Rea Protein [Mass/Vol] 7.7 g/dL Normal 6.4-8.2 [facility] Comment on above: Performed By: #### L IPA, DLDL, CON, LIPID, T7, CMP, TSH #### [facility] [address] [place] [address] Dr. Delmer Rea Sodium [Moles/Vol] 134 mmol/L Critically low 136-[address] [facility] Comment on above: Performed By: #### L IPA, DLDL, CON, LIPID, T7, CMP, TSH #### [facility] [address] [place] [address] Dr. Delmer Rea Urea nitrogen [Mass/Vol] 40.0 mg/dL Critically high 7.0-18.0 [facility] Comment on above: Performed By: #### L IPA, DLDL, CON, LIPID, T7, CMP, TSH #### [facility] [address] [place] [address] Dr. Delmer Rea Urea nitrogen/Creatinine [Mass ratio] 21.5 mg/mg Normal [facility] Comment on above: Performed By: #### L IPA, DLDL, CON, LIPID, T7, CMP, TSH #### [facility] [address] [place] [address] Dr. Delmer Rea URIC ACID SERUMon 03-10-2023 Urate [Mass/Vol] 7.1 mg/dL Critically high 2.6-6.0 [facility] Comment on above: Performed By: #### L IPA, DLDL, CON, LIPID, T7, CMP, TSH #### [facility] [address] [place] [address] Dr. Delmer Rea VIT B12 AND FOLATEon 023 Cobalamin (Vitamin B12) [Mass/Vol] 369.0 pg/mL Normal 193.0-986.0 [facility] Comment on above: Performed By: #### L IPA, DLDL, CON, LIPID, T7, CMP, TSH #### [facility] [address] [address] [address] Delmer Rea FOLATE 20.30 ng/mL Normal 8.60-58.90 [facility] Comment on above: Performed By: #### L IPA, DLDL, CON, LIPID, T7, CMP, TSH #### [facility] [address] [place] [address] Dr. Delmer Rea VITAMIN D 25 OHon 03-10-2023 VIT D 25-OH 13.0 ng/mL Normal [facility] Comment on above: Performed By: #### L IPA, DLDL, CON, LIPID, T7, CMP, TSH #### [facility] [address] [place] [address] Dr. Delmer Rea VIT D RANGES SEE BELOW Normal [facility] Comment on above: Result Comment: <20 ng/mL Vit D deficient 20 - <30 ng/mL Vit D insufficient 30 - 100 ng/mL Vit D sufficient >100 ng/mL Potential Toxicity Performed By: #### L IPA, DLDL, CON, LIPID, T7, CMP, TSH #### [facility] [address] [place] [address] Dr. Delmer Rea PROF 14(COMP METB)on 023 Albumin [Mass/Vol] 3.4 g/dL Normal 3.4-5.0 [facility] Comment on above: Performed By: #### L IPA, DLDL, CON, LIPID, T7, CMP, TSH #### [facility] [address] [place] [address] Dr. Delmer Rea Albumin/Globulin [Mass ratio] 0.9 {ratio} Normal [facility] Comment on above: Performed By: #### L IPA, DLDL, CON, LIPID, T7, CMP, TSH #### [facility] [address] [place] [address] Dr. Delmer Rea ALP [Catalytic activity/Vol] 95 U/L Normal 46-116 [facility] Comment on above: Performed By: #### L IPA, DLDL, CON, LIPID, T7, CMP, TSH #### [facility] [address] [address] [address] Delmer Rea ALT [Catalytic activity/Vol] 23 U/L Normal 14-59 [facility] Comment on above: Performed By: #### L IPA, DLDL, CON, LIPID, T7, CMP, TSH #### [facility] [address] [place] [address] Dr. Delmer Rea Anion gap [Moles/Vol] 15.2 mmol/L Normal [facility] Comment on above: Performed By: #### L IPA, DLDL, CON, LIPID, T7, CMP, TSH #### [facility] [address] [place] [address] Dr. Delmer Rea AST [Catalytic activity/Vol] 8 U/L Critically low 15-37 [facility] Comment on above: Performed By: #### L IPA, DLDL, CON, LIPID, T7, CMP, TSH #### [facility] [address] [place] [address] Dr. Delmer Rea Bilirubin [Mass/Vol] 0.3 mg/dL Normal 0.2-1.0 [facility] Comment on above: Performed By: #### L IPA, DLDL, CON, LIPID, T7, CMP, TSH #### [facility] [address] [place] [address] Dr. Delmer Rea Calcium [Mass/Vol] 9.2 mg/dL Normal 8.5-10.1 [facility] Comment on above: Performed By: #### L IPA, DLDL, CON, LIPID, T7, CMP, TSH #### [facility] [address] [address] [address] Delmer Rea Chloride [Moles/Vol] 102 mmol/L Normal 98-107 [facility] Comment on above: Performed By: #### L IPA, DLDL, CON, LIPID, T7, CMP, TSH #### [facility] [address] [address] [address] Delmer Rea CO2 [Moles/Vol] 22.6 mmol/L Normal 21.0-32.0 [facility] Comment on above: Performed By: #### L IPA, DLDL, CON, LIPID, T7, CMP, TSH #### [facility] [address] [place] [address] Dr. Delmer Rea Creatinine [Mass/Vol] 1.89 mg/dL Critically high 0.55-1.02 [facility] Comment on above: Performed By: #### L IPA, DLDL, CON, LIPID, T7, CMP, TSH #### [facility] [address] [place] [address] Dr. Delmer Rea EGFR-AF MONEGASQUE 34 mL/min/1.73m2 Critically low >=60 [facility] Comment on above: Performed By: #### L IPA, DLDL, CON, LIPID, T7, CMP, TSH #### [facility] [address] [place] [address] Dr. Delmer Rea EGFR-NON AF MONEGASQUE 28 mL/min/1.73m2 Critically low >=60 [facility] Comment on above: Performed By: #### L IPA, DLDL, CON, LIPID, T7, CMP, TSH #### [facility] [address] [place] [address] Dr. Delmer Rea Globulin (S) [Mass/Vol] 3.9 g/dL Normal [facility] Comment on above: Performed By: #### L IPA, DLDL, CON, LIPID, T7, CMP, TSH #### [facility] [address] [place] [address] Dr. Delmer Rea Glucose [Mass/Vol] 257 mg/dL Critically high 74-106 [facility] Comment on above: Performed By: #### L IPA, DLDL, CON, LIPID, T7, CMP, TSH #### [facility] [address] [place] [address] Dr. Delmer Rea Potassium [Moles/Vol] 4.8 mmol/L Normal 3.5-5.1 [facility] Comment on above: Performed By: #### L IPA, DLDL, CON, LIPID, T7, CMP, TSH #### [facility] [address] [address] [address] Delmer Rea Protein [Mass/Vol] 7.3 g/dL Normal 6.4-8.2 [facility] Comment on above: Performed By: #### L IPA, DLDL, CON, LIPID, T7, CMP, TSH #### [facility] [address] [place] [address] Dr. Delmer Rea Sodium [Moles/Vol] 135 mmol/L Critically low 136-[address] [facility] Comment on above: Performed By: #### L IPA, DLDL, CON, LIPID, T7, CMP, TSH #### [facility] [address] [place] [address] Dr. Delmer Rea Urea nitrogen [Mass/Vol] 39.0 mg/dL Critically high 7.0-18.0 [facility] Comment on above: Performed By: #### L IPA, DLDL, CON, LIPID, T7, CMP, TSH #### [facility] [address] [place] [address] Dr. Delmer Rea Urea nitrogen/Creatinine [Mass ratio] 20.6 mg/mg Normal [facility] Comment on above: Performed By: #### L IPA, DLDL, CON, LIPID, T7, CMP, TSH #### [facility] [address] [place] [address] Dr. Delmer Rea PROF 14(COMP METB)on 023 Albumin [Mass/Vol] 3.5 g/dL Normal 3.4-5.0 [facility] Comment on above: Performed By: #### U MICRO, ERUR #### [facility] [address] [place] [address] Dr. Delmer Rea Albumin/Globulin [Mass ratio] 0.8 {ratio} Normal [facility] Comment on above: Performed By: #### U MICRO, ERUR #### [facility] [address] [place] [address] Dr. Delmer Rea ALP [Catalytic activity/Vol] 113 U/L Normal 46-116 [facility] Comment on above: Performed By: #### U MICRO, ERUR #### [facility] [address] [address] [address] Delmer Rea ALT [Catalytic activity/Vol] 23 U/L Normal 14-59 [facility] Comment on above: Performed By: #### U MICRO, ERUR #### [facility] [address] [place] [address] Dr. Delmer Rea Anion gap [Moles/Vol] 15.5 mmol/L Normal [facility] Comment on above: Performed By: #### U MICRO, ERUR #### [facility] [address] [place] [address] Dr. Delmer Rea AST [Catalytic activity/Vol] 15 U/L Normal 15-37 [facility] Comment on above: Performed By: #### U MICRO, ERUR #### [facility] [address] [place] [address] Dr. Delmer Rea Bilirubin [Mass/Vol] 0.3 mg/dL Normal 0.2-1.0 [facility] Comment on above: Performed By: #### U MICRO, ERUR #### [facility] [address] [place] [address] Dr. Delmer Rea Calcium [Mass/Vol] 9.5 mg/dL Normal 8.5-10.1 [facility] Comment on above: Performed By: #### U MICRO, ERUR #### [facility] [address] [place] [address] Dr. Delmer Rea Chloride [Moles/Vol] 104 mmol/L Normal 98-107 [facility] Comment on above: Performed By: #### U MICRO, ERUR #### [facility] [address] [place] [address] Dr. Delmer Rea CO2 [Moles/Vol] 25.1 mmol/L Normal 21.0-32.0 [facility] Comment on above: Performed By: #### U MICRO, ERUR #### [facility] [address] [place] [address] Dr. Delmer Rea Creatinine [Mass/Vol] 1.29 mg/dL Critically high 0.55-1.02 [facility] Comment on above: Performed By: #### U MICRO, ERUR #### [facility] [address] [address] [address] Delmer Rea EGFR-AF MONEGASQUE 53 mL/min/1.73m2 Critically low >=60 [facility] Comment on above: Performed By: #### U MICRO, ERUR #### [facility] [address] [address] [address] Delmer Rea EGFR-NON AF MONEGASQUE 44 mL/min/1.73m2 Critically low >=60 [facility] Comment on above: Performed By: #### U MICRO, ERUR #### [facility] [address] [address] [address] Delmer Rea Globulin (S) [Mass/Vol] 4.2 g/dL Normal [facility] Comment on above: Performed By: #### U MICRO, ERUR #### [facility] [address] [address] [address] Delmer Rea Glucose [Mass/Vol] 135 mg/dL Critically high 74-106 [facility] Comment on above: Performed By: #### U MICRO, ERUR #### [facility] [address] [address] [address] Delmer Rea Potassium [Moles/Vol] 4.6 mmol/L Normal 3.5-5.1 [facility] Comment on above: Performed By: #### U MICRO, ERUR #### [facility] [address] [address] [address] Delmer Rea Protein [Mass/Vol] 7.7 g/dL Normal 6.4-8.2 [facility] Comment on above: Performed By: #### U MICRO, ERUR #### [facility] [address] [address] [address] Delmer Rea Sodium [Moles/Vol] 140 mmol/L Normal 136-145 [facility] Comment on above: Performed By: #### U MICRO, ERUR #### [facility] [address] [address] [address] Delmer Rea Urea nitrogen [Mass/Vol] 28.0 mg/dL Critically high 7.0-18.0 [facility] Comment on above: Performed By: #### U MICRO, ERUR #### [facility] [address] [place] [address] Dr. Delmer Rea Urea nitrogen/Creatinine [Mass ratio] 21.7 mg/mg Normal [facility] Comment on above: Performed By: #### U MICRO, ERUR #### [facility] [address] [place] [address] Dr. Delmer Rea H PYLORI ANTIBODY IGGon 11-07 H. PYLORI IGG ABS 4.50 Index Value Critically high 0.00-0. 79 [facility] Comment on above: Result Comment: Nega tive <0.80 Equivocal 0.80 - 0.89 Positive >0.89 Performed By: #### L IPA, DLDL, CON, LIPID, T7, CMP, TSH #### [facility] [address] [place] [address] Dr. Delmer Rae AMYLASEon 11-25-2022 Amylase [Catalytic activity/Vol] 42 U/L Normal 25-115 [facility] Comment on above: Performed By: #### L IPA, DLDL, CON, LIPID, T7, CMP, TSH #### [facility] [address] [place] [address] Dr. Delmer Rea CBC AUTO DIFFon 11-25-2022 BASO # 0.0 103/ul Normal 0.0-0.1 [facility] Comment on above: Performed By: #### U MICRO, ERUR #### [facility] [address] [place] [address] Dr. Delmer Rea Basophils/100 WBC (Bld) 0.6 % Normal 0.2-2.0 [facility] Comment on above: Performed By: #### U MICRO, ERUR #### [facility] [address] [place] [address] Dr. Delmer Rea EO # 0.2 103/ul Normal 0.0-0.7 [facility] Comment on above: Performed By: #### U MICRO, ERUR #### [facility] [address] [place] [address] Dr. Delmer Rea Eosinophils/100 WBC (Bld) 3.2 % Normal 0.9-7.0 [facility] Comment on above: Performed By: #### U MICRO, ERUR #### [facility] [address] [place] [address] Dr. Delmer Rea Erythrocyte distribution width (RBC) [Ratio] 13.5 % Normal 11.0-15.0 [facility] Comment on above: Performed By: #### U MICRO, ERUR #### [facility] [address] [place] [address] Dr. Delmer Rea Hematocrit (Bld) [Volume fraction] 28.6 % Critically low 36.0-48.0 [facility] Comment on above: Performed By: #### U MICRO, ERUR #### [facility] [address] [place] [address] Dr. Delmer Rea Hemoglobin (Bld) [Mass/Vol] 10.4 g/dL Critically low 12.0-16.0 [facility] Comment on above: Performed By: #### U MICRO, ERUR #### [facility] [address] [place] [address] Dr. Delmer Rea IG # 0.06 10e3/ul Critically high 0.00-0.03 [facility] Comment on above: Performed By: #### U MICRO, ERUR #### [facility] [address] [place] [address] Dr. Delmer Rea IG % 0.9 % Critically high 0.0-0.5 [facility] Comment on above: Performed By: #### U MICRO, ERUR #### [facility] [address] [place] [address] Dr. Delmer Rea LYMPH # 2.2 103/ul Normal 1.2-3.8 [facility] Comment on above: Performed By: #### U MICRO, ERUR #### [facility] [address] [place] [address] Dr. Delmer Rea Lymphocytes/100 WBC (Bld) 32.2 % Normal 20.5-60.0 [facility] Comment on above: Performed By: #### U MICRO, ERUR #### [facility] [address] [place] [address] Dr. Delmer Rea MANUAL DIFF REQ NO Normal [facility] Comment on above: Performed By: #### U MICRO, ERUR #### [facility] [address] [place] [address] Dr. Delmer Rea MCH (RBC) [Entitic mass] 27.6 pg Normal 26.7-34.0 [facility] Comment on above: Performed By: #### U MICRO, ERUR #### [facility] [address] [place] [address] Dr. Delmer Rea MCHC (RBC) [Mass/Vol] 36.4 g/dL Critically high 29.9-35.2 [facility] Comment on above: Performed By: #### U MICRO, ERUR #### [facility] [address] [place] [address] Dr. Delmer Rea MCV (RBC) [Entitic vol] 75.9 fL Critically low 81.0-99.0 [facility] Comment on above: Performed By: #### U MICRO, ERUR #### [facility] [address] [place] [address] Dr. Delmer Rea MONO # 0.7 103/ul Normal 0.3-0.8 [facility] Comment on above: Performed By: #### U MICRO, ERUR #### [facility] [address] [place] [address] Dr. Delmer Rea Monocytes/100 WBC (Bld) 9.4 % Normal 1.7-12.0 [facility] Comment on above: Performed By: #### U MICRO, ERUR #### [facility] [address] [place] [address] Dr. Delmer Rea NEUT # 3.7 103/ul Normal 1.4-6.5 [facility] Comment on above: Performed By: #### U MICRO, ERUR #### [facility] [address] [place] [address] Dr. Delmer Rea Neutrophils/100 WBC (Bld) 53.7 % Normal 43.0-75.0 [facility] Comment on above: Performed By: #### U MICRO, ERUR #### [facility] [address] [address] [address] Delmer Rea Platelet mean volume (Bld) [Entitic vol] 9.4 fL Critically low 9.5-13.5 [facility] Comment on above: Performed By: #### U MICRO, ERUR #### [facility] [address] [address] [address] Delmer Rea PLT 313 103/ul Normal 150-450 [facility] Comment on above: Performed By: #### U MICRO, ERUR #### [facility] [address] [address] [address] Delmer Rea RBC 3.77 106/ul Critically low 4.20-5.40 [facility] Comment on above: Performed By: #### U MICRO, ERUR #### [facility] [address] [address] [address] Delmer Rea WBC 6.9 103/ul Normal 4.0-11.0 [facility] Comment on above: Performed By: #### U MICRO, ERUR #### [facility] [address] [address] [address] Delmer Rea DIRECT LDLon 11-25-2022 Cholesterol in LDL [Mass/Vol] 102 mg/dL Normal [facility] Comment on above: Performed By: #### L IPA, DLDL, CON, LIPID, T7, CMP, TSH #### [facility] [address] [address] [address] Delmer Rea DLDL NORMAL SEE BELOW Normal [facility] Comment on above: Result Comment: <100 mg/dl OPTIMAL 100 - 129 mg/dl NEAR OR ABOVE OPTIMAL 130 - 159 mg/dl BORDERLINE HIGH 160 - 189 mg/dl HIGH >190 mg/dl VERY HIGH Performed By: #### L IPA, DLDL, CON, LIPID, T7, CMP, TSH #### [facility] [address] [address] [address] Delmer Rea FREE THYROXINE INDEX T7on FTI 4.31 Normal 1.30-4.50 [facility] Comment on above: Performed By: #### L IPA, DLDL, CON, LIPID, T7, CMP, TSH #### [facility] [address] [address] [address] Delmer Rea T3U 35.0 % Normal 30.0-39.0 [facility] Comment on above: Performed By: #### L IPA, DLDL, CON, LIPID, T7, CMP, TSH #### [facility] [address] [address] [address] Delmer Rea T4 [Mass/Vol] 12.30 ug/dL Normal 4.80-13.90 [facility] Comment on above: Performed By: #### L IPA, DLDL, CON, LIPID, T7, CMP, TSH #### [facility] [address] [address] [address] Delmer Rea GLYCOHEMOGLOBIN A1Con 2022 ADA RECOMMENDATION SEE BELOW Normal [facility] Comment on above: Result Comment: ADA RECOMMENDED LIMIT 4.0 - 6.0 ADA THERAPEUTIC TARGET < 7.0 ACTION SUGGESTED > 7.0 Performed By: #### U MICRO, ERUR #### [facility] [address] [address] [address] Delmer Rea Glucose [Mass/Vol] 180 mg/dL Normal [facility] Comment on above: Performed By: #### U MICRO, ERUR #### [facility] [address] [address] [address] Delmer Rea HbA1c (Bld) [Mass fraction] 7.9 % Critically high 4.5-6.2 [facility] Comment on above: Performed By: #### U MICRO, ERUR #### [facility] [address] [address] [address] Delmer Rea IRONon 11-25-2022 Iron [Mass/Vol] 35.0 ug/dL Critically low 50.0-170.0 [facility] Comment on above: Performed By: #### L IPA, DLDL, CON, LIPID, T7, CMP, TSH #### [facility] [address] [address] [address] Delmer Rea LIPASEon 11-25-2022 Lipase [Catalytic activity/Vol] 155.0 U/L Normal 73.0-393.0 [facility] Comment on above: Performed By: #### L IPA, DLDL, CON, LIPID, T7, CMP, TSH #### [facility] [address] [address] [address] Delmer Rea LIPID PROFILEon 11-25-2022 CHOL-HDL RATIO NORM SEE BELOW Normal [facility] Comment on above: Result Comment: 3.3 - 4.4 LOW RISK 4.4 - 7.1 AVERAGE RISK 7.1 - 11.0 MODERATE RISK >11.0 HIGH RISK Performed By: #### L IPA, DLDL, CON, LIPID, T7, CMP, TSH #### [facility] [address] [address] [address] Delmer Rea Cholesterol [Mass/Vol] 238 mg/dL Critically high <=200 [facility] Comment on above: Performed By: #### L IPA, DLDL, CON, LIPID, T7, CMP, TSH #### [facility] [address] [address] [address] Delmer Rea Cholesterol in HDL [Mass/Vol] 39 mg/dL Critically low 40-60 [facility] Comment on above: Performed By: #### L IPA, DLDL, CON, LIPID, T7, CMP, TSH #### [facility] [address] [address] [address] Delmer Rea Cholesterol.total/Ch olesterol in HDL [Mass ratio] 6.1 {ratio} Normal [facility] Comment on above: Performed By: #### L IPA, DLDL, OCN, LIPID, T7, CMP, TSH #### [facility] [address] [address] [address] Delmer Rea HDL NORMAL > or = 60 mg/dl - LO W CARDIOVASCULAR RISK <40 mg/dl - HIGH CARDIOVASCULAR RISK Normal [facility] Comment on above: Performed By: #### L IPA, DLDL, CON, LIPID, T7, CMP, TSH #### [facility] [address] [address] [address] Delmer Rea LDL CALC NORMAL SEE BELOW Normal [facility] Comment on above: Result Comment: <100 mg/dl OPTIMAL 100 - 129 mg/dl NEAR OR ABOVE OPTIMAL 130 - 159 mg/dl BORDERLINE HIGH 160 - 189 mg/dl HIGH >190 mg/dl VERY HIGH Performed By: #### L IPA, DLDL, CON, LIPID, T7, CMP, TSH #### [facility] [address] [address] [address] Delmer Rea Triglyceride [Mass/Vol] 579 mg/dL Critically high <=150 [facility] Comment on above: Performed By: #### L IPA, DLDL, CON, LIPID, T7, CMP, TSH #### [facility] [address] [address] [address] Delmer Rea VLDL CALC 115.8 mg/dL Normal [facility] Comment on above: Performed By: #### L IPA, DLDL, CON, LIPID, T7, CMP, TSH #### [facility] [address] [place] [address] Dr. Delmer Rea PROF 14(COMP METB)on 023 Albumin [Mass/Vol] 3.5 g/dL Normal 3.4-5.0 [facility] Comment on above: Performed By: #### L IPA, DLDL, CON, LIPID, T7, CMP, TSH #### [facility] [address] [place] [address] Dr. Delmer Rea Albumin/Globulin [Mass ratio] 0.8 {ratio} Normal [facility] Comment on above: Performed By: #### L IPA, DLDL, CON, LIPID, T7, CMP, TSH #### [facility] [address] [address] [address] Delmer Rea ALP [Catalytic activity/Vol] 110 U/L Normal 46-116 [facility] Comment on above: Performed By: #### L IPA, DLDL, CON, LIPID, T7, CMP, TSH #### [facility] [address] [address] [address] Delmer Rea ALT [Catalytic activity/Vol] 19 U/L Normal 14-59 [facility] Comment on above: Performed By: #### L IPA, DLDL, CON, LIPID, T7, CMP, TSH #### [facility] [address] [address] [address] Delmer Rea Anion gap [Moles/Vol] 17.0 mmol/L Normal [facility] Comment on above: Performed By: #### L IPA, DLDL, CON, LIPID, T7, CMP, TSH #### [facility] [address] [address] [address] Delmer Rea AST [Catalytic activity/Vol] 13 U/L Critically low 15-37 [facility] Comment on above: Performed By: #### L IPA, DLDL, CON, LIPID, T7, CMP, TSH #### [facility] [address] [place] [address] Dr. Delmer Rea Bilirubin [Mass/Vol] 0.3 mg/dL Normal 0.2-1.0 [facility] Comment on above: Performed By: #### L IPA, DLDL, CON, LIPID, T7, CMP, TSH #### [facility] [address] [place] [address] Dr. Delmer Rea Calcium [Mass/Vol] 9.6 mg/dL Normal 8.5-10.1 [facility] Comment on above: Performed By: #### L IPA, DLDL, CON, LIPID, T7, CMP, TSH #### [facility] [address] [address] [address] Delmer Rea Chloride [Moles/Vol] 104 mmol/L Normal 98-107 [facility] Comment on above: Performed By: #### L IPA, DLDL, CON, LIPID, T7, CMP, TSH #### [facility] [address] [place] [address] Dr. Delmer Rea CO2 [Moles/Vol] 22.7 mmol/L Normal 21.0-32.0 [facility] Comment on above: Performed By: #### L IPA, DLDL, CON, LIPID, T7, CMP, TSH #### [facility] [address] [place] [address] Dr. Delmer Rea Creatinine [Mass/Vol] 2.15 mg/dL Critically high 0.55-1.02 [facility] Comment on above: Performed By: #### L IPA, DLDL, CON, LIPID, T7, CMP, TSH #### [facility] [address] [place] [address] Dr. Delmer Rea EGFR-AF MONEGASQUE 29 mL/min/1.73m2 Critically low >=60 [facility] Comment on above: Performed By: #### L IPA, DLDL, CON, LIPID, T7, CMP, TSH #### [facility] [address] [place] [address] Dr. Delmer eRa EGFR-NON AF MONEGASQUE 24 mL/min/1.73m2 Critically low >=60 [facility] Comment on above: Performed By: #### L IPA, DLDL, CON, LIPID, T7, CMP, TSH #### [facility] [address] [place] [address] Dr. Delmer Rea Globulin (S) [Mass/Vol] 4.3 g/dL Normal [facility] Comment on above: Performed By: #### L IPA, DLDL, CON, LIPID, T7, CMP, TSH #### [facility] [address] [place] [address] Dr. Delmer Rea Glucose [Mass/Vol] 189 mg/dL Critically high 74-106 [facility] Comment on above: Performed By: #### L IPA, DLDL, CON, LIPID, T7, CMP, TSH #### [facility] [address] [place] [address] Dr. Delmer Rea Potassium [Moles/Vol] 4.7 mmol/L Normal 3.5-5.1 [facility] Comment on above: Performed By: #### L IPA, DLDL, CON, LIPID, T7, CMP, TSH #### [facility] [address] [place] [address] Dr. Delmer Rea Protein [Mass/Vol] 7.8 g/dL Normal 6.4-8.2 [facility] Comment on above: Performed By: #### L IPA, DLDL, CON, LIPID, T7, CMP, TSH #### [facility] [address] [place] [address] Dr. Delmer Rea Sodium [Moles/Vol] 139 mmol/L Normal 136-145 [facility] Comment on above: Performed By: #### L IPA, DLDL, CON, LIPID, T7, CMP, TSH #### [facility] [address] [address] [address] Delmer Rea Urea nitrogen [Mass/Vol] 48.0 mg/dL Critically high 7.0-18.0 [facility] Comment on above: Performed By: #### L IPA, DLDL, CON, LIPID, T7, CMP, TSH #### [facility] [address] [address] [address] Delmer Rea Urea nitrogen/Creatinine [Mass ratio] 22.3 mg/mg Normal [facility] Comment on above: Performed By: #### L IPA, DLDL, CON, LIPID, T7, CMP, TSH #### [facility] [address] [place] [address] Dr. Delmer Rea TSHon 11-25-2022 TSH 0.063 uIU/mL Critically low 0.358-3.740 [facility] Comment on above: Performed By: #### L IPA, DLDL, CON, LIPID, T7, CMP, TSH #### [facility] [address] [address] [address] Delmer Rea CULTURE URINEon 09-12-2022 CULTURE URINE Culture Observations : LIGHT GROWTH OF MIXED GENITAL JOSE. NO POTENTIAL PATHOGENS SEEN. Normal [facility] Comment on above: Performed By: #### L IPA, DLDL, CON, LIPID, T7, CMP, TSH #### [facility] [address] [place] [address] Dr. Delmer Rea URINE MICROSCOPIC ONLYon BACTERIA MODERATE Abnormal NONE SEEN [facility] Comment on above: Performed By: #### L IPA, DLDL, CON, LIPID, T7, CMP, TSH #### [facility] [address] [place] [address] Dr. Delmer Rea Bacteria identified Cx Nom (U) CX ALREADY ORDERED Normal [facility] Comment on above: Performed By: #### L IPA, DLDL, CON, LIPID, T7, CMP, TSH #### [facility] [address] [address] [address] Delmer Rea CAST NONE SEEN Normal NONE SEEN [facility] Comment on above: Performed By: #### L IPA, DLDL, CON, LIPID, T7, CMP, TSH #### [facility] [address] [address] [address] Delmer Rea Crystals LM Nom (Urine sed) NONE SEEN Normal NONE SEEN [facility] Comment on above: Performed By: #### L IPA, DLDL, CON, LIPID, T7, CMP, TSH #### [facility] [address] [address] [address] Delmer Rea Epithelial cells LM Ql (Urine sed) FEW Abnormal NONE SEEN /RARE [facility] Comment on above: Performed By: #### L IPA, DLDL, CON, LIPID, T7, CMP, TSH #### [facility] [address] [address] [address] Delmer Rea MUCOUS NONE SEEN Normal NONE SEEN [facility] Comment on above: Performed By: #### L IPA, DLDL, CON, LIPID, T7, CMP, TSH #### [facility] [address] [address] [address] Delmer Rea RBC 5-10 Abnormal 0-2 [facility] Comment on above: Performed By: #### L IPA, DLDL, CON, LIPID, T7, CMP, TSH #### [facility] [address] [address] [address] Delmer Rea WBC (U) [#/Vol] /uL Abnormal NONE SEEN [facility] Comment on above: Performed By: #### L IPA, DLDL, CON, LIPID, T7, CMP, TSH #### [facility] [address] [address] [address] Delmer Rea YEAST PRESENT Abnormal NONE SEEN [facility] Comment on above: Performed By: #### L IPA, DLDL, CON, LIPID, T7, CMP, TSH #### [facility] [address] [address] [address] Delmer Rea NM KIDNEY W FLOW [...] Akil Cummings MD 08/05/22 Final result Normal [facility] APTTon 07-26-2022 aPTT Coag (Bld) [Time] 23.4 s Normal 20.5-30.5 [facility] Comment on above: Result Comment: IV Heparin Therapy Range: 48.6-77.8 Performed By: #### A NAX, IFX, PHEP, FKLLC, PE #### [employer] [address] [place] [address] Medical Office Asst: Bala Skelton MD aPTT Coag (Bld) [Time] 23.4 s [facility] Comment on above: IV Heparin Therapy Range: 48.6-77.8 CBC with Auto Differentialon 07-26-2022 Absolute Eos # 0.29 [facility] Absolute Immature Granulocyte 0.09 [facility] Absolute Lymph # 2.26 [facility] Absolute [place] # 0.65 [facility] Basophils (Bld) [#/Vol] 0.04 10*3/uL [facility] Basophils/100 WBC (Bld) 1 % 0 - 2 % [facility] Eosinophils/100 WBC (Bld) 4 % 1 - 4 % [facility] Hematocrit (Bld) [Volume fraction] 29.5 % Low 36.3 - 47.1 % [facility] Hemoglobin (Bld) [Mass/Vol] 10.1 g/dL Low 11.9 - 15.1 g/dL [facility] Immature granulocytes/100 WBC (Bld) 1 % High 0 [facility] Interpretation and review of laboratory results Abnormal [facility] Lymphocytes/100 WBC (Bld) 27 % 24 - 43 % [facility] MCH (RBC) [Entitic mass] 29.3 pg 25.2 - 33.5 pg [facility] MCHC (RBC) [Mass/Vol] 34.2 g/dL 28.4 - 34.8 g/dL [facility] MCV (RBC) [Entitic vol] 85.5 fL 82.6 - 102.9 fL [facility] Monocytes/100 WBC (Bld) 8 % 3 - 12 % [facility] NRBC Automated 0.0 0.0 per 100 WBC [facility] Platelet distribution width (Bld) [Ratio] 13.4 % 11.8 - 14.4 % [facility] Platelet mean volume (Bld) [Entitic vol] 9.5 fL 8.1 - 13.5 fL [facility] Platelets (Bld) [#/Vol] 311 10*3/uL [facility] RBC (Bld) [#/Vol] 3.45 10*6/uL Low 3.95 - 5.1 1 m/uL [facility] Segmented neutrophils/100 WBC (Bld) 59 % 36 - 65 % [facility] Segs Absolute 5.00 [facility] WBC (Bld) [#/Vol] 8.3 10*3/uL [facility] CBC with Diffon 07-26-2022 Abs. Basophil 0.04 k/uL Normal 0.00-0.20 [facility] Comment on above: Performed By: #### A NAX, IFX, PHEP, FKLLC, PE #### [address] [address] Medical Office Asst: Bala Skelton MD Abs.Imm.Granulocyte 0.09 k/uL Normal 0.00-0.30 [facility] Comment on above: Performed By: #### A NAX, IFX, PHEP, FKLLC, PE #### [facility] [employer] [address] [place] [address] Medical Office Asst: Bala Skelton MD Abs.Neutrophil (Seg) 5.00 k/uL Normal 1.50-8.[address] [facility] Comment on above: Performed By: #### A NAX, IFX, PHEP, FKLLC, PE #### [facility] [employer] [address] [place] [address] Medical Office Asst: Bala Skelton MD Basophils/100 WBC (Bld) 1 % Normal 0-2 [facility] Comment on above: Performed By: #### A NAX, IFX, PHEP, FKLLC, PE #### [facility] [employer] [address] [place] [address] Medical Office Asst: Bala Skelton MD Eosinophils (Bld) [#/Vol] 0.29 10*3/uL Normal 0.00-0.44 [facility] Comment on above: Performed By: #### A NAX, IFX, PHEP, FKLLC, PE #### [address] [address] Medical Office Asst: Bala Skelton MD Eosinophils/100 WBC (Bld) 4 % Normal 1-4 [facility] Comment on above: Performed By: #### A NAX, IFX, PHEP, FKLLC, PE #### [address] [address] Medical Office Asst: Bala Skelton MD Erythrocyte distribution width (RBC) [Ratio] 13.4 % Normal 11.8-14.4 [facility] Comment on above: Performed By: #### A NAX, IFX, PHEP, FKLLC, PE #### [address] [address] Medical Office Asst: Bala Skelton MD Hematocrit (Bld) [Volume fraction] 29.5 % Low 36.3-47.1 [facility] Comment on above: Performed By: #### A NAX, IFX, PHEP, FKLLC, PE #### [address] [address] Medical Office Asst: Bala Skelton MD Hemoglobin (Bld) [Mass/Vol] 10.1 g/dL Low 11.9-15.1 [facility] Comment on above: Performed By: #### A NAX, IFX, PHEP, FKLLC, PE #### [address] [address] Medical Office Asst: Bala Skelton MD Immature granulocytes/100 WBC (Bld) 1 % High 0 [facility] Comment on above: Performed By: #### A NAX, IFX, PHEP, FKLLC, PE #### [address] [address] Medical Office Asst: Bala Skelton MD Lymphocytes (Bld) [#/Vol] 2.26 10*3/uL Normal 1.10-3.70 [facility] Comment on above: Performed By: #### A NAX, IFX, PHEP, FKLLC, PE #### [address] [address] Medical Office Asst: Bala Skelton MD Lymphocytes/100 WBC (Bld) 27 % Normal 24-43 [facility] Comment on above: Performed By: #### A NAX, IFX, PHEP, FKLLC, PE #### [place] [address] Medical Office Asst: Bala Skelton MD MCH (RBC) [Entitic mass] 29.3 pg Normal 25.2-33.5 [facility] Comment on above: Performed By: #### A NAX, IFX, PHEP, FKLLC, PE #### [place] [address] Medical Office Asst: Bala Skelton MD MCHC (RBC) [Mass/Vol] 34.2 g/dL Normal 28.4-34.8 [facility] Comment on above: Performed By: #### A NAX, IFX, PHEP, FKLLC, PE #### [address] [id number] Medical Office Asst: Bala Skelton MD MCV (RBC) [Entitic vol] 85.5 fL Normal 82.6-102.9 [facility] Comment on above: Performed By: #### A NAX, IFX, PHEP, FKLLC, PE #### [place] [address] Medical Office Asst: Bala Skelton MD Monocytes (Bld) [#/Vol] 0.65 10*3/uL Normal 0.10-1.20 [facility] Comment on above: Performed By: #### A NAX, IFX, PHEP, FKLLC, PE #### [address] [address] Medical Office Asst: Bala Skelton MD Monocytes/100 WBC (Bld) 8 % Normal 3-12 [facility] Comment on above: Performed By: #### A NAX, IFX, PHEP, FKLLC, PE #### [address] [address] Medical Office Asst: Bala Skelton MD Neutrophil (Seg) 59 % Normal 36-65 [facility] Comment on above: Performed By: #### A NAX, IFX, PHEP, FKLLC, PE #### [address] [address] Medical Office Asst: Bala Skelton MD NRBC Automated 0.0 per 100 WBC Normal 0.0 [facility] Comment on above: Performed By: #### A NAX, IFX, PHEP, FKLLC, PE #### [address] [address] Medical Office Asst: Bala Skelton MD Platelet mean volume (Bld) [Entitic vol] 9.5 fL Normal 8.1-13.5 [facility] Comment on above: Performed By: #### A NAX, IFX, PHEP, FKLLC, PE #### [address] [address] Medical Office Asst: Bala Skelton MD Platelets (Bld) [#/Vol] 311 10*3/uL Normal 138-453 [facility] Comment on above: Performed By: #### A NAX, IFX, PHEP, FKLLC, PE #### [address] [address] Medical Office Asst: Bala Skelton MD RBC (Bld) [#/Vol] 3.45 10*6/uL Low 3.95-5.11 [facility] Comment on above: Performed By: #### A NAX, IFX, PHEP, FKLLC, PE #### [employer] [address], [place] [id number] Medical Office Asst: Bala Skelton MD WBC (Bld) [#/Vol] 8.3 10*3/uL Normal 3.5-11.3 [facility] Comment on above: Performed By: #### A NAX, IFX, PHEP, FKLLC, PE #### [facility] [address], [place] [id number] Medical Office Asst: Bala Skelton MD IR GUIDED NEPHROURETERAL CAT H REMOVE/REPLACEon 07-26-2022 1. Successful left nephroureteral stent exchange. [facility] Bishnu Wright MD - 07/26/2022 PROCEDURE: IR [...] detailed explanation of the procedure including risks. [place] protocol was observed. Sterile gowns, masks, hats and gloves utilized for maximal sterile barrier. The patient was placed in the prone position on the fluoroscopy table, and the existing left nephroureteral stent and flank were prepped and draped in sterile manner. The stent tubing was noted to be broken with the lumen exposed near the level of the skin. A prosthetic dentist image demonstrated the distal loop approximating the [...] wire. Under fluoroscopic guidance, a new 8 Tanzanian x 22 cm nephroureteral stent was advanced over the wire; the distal loop formed in the bladder, but the proximal loop did not form in the renal pelvis. Therefore, this catheter was removed over wire, and a new 8 Tanzanian x 24 cm nephroureteral stent was advanced [...] IMPRESSION: 1. Successful left nephroureteral stent exchange. [facility] Work Phone: Radiology Study observation (narrative) [employer] Phone: IR GUIDED NEPHROURETERAL CAT H REMOVE/REPLACEOrdered By: Bishnu Alan on 07-26-2022 [facility] Work [facility]: No Panel Informationon 07-26 [facility] [employer] POC Glucose Fingerstickon Glucose [Mass/Vol] 185 mg/dL High 65 - 105 mg/dL [facility] Interpretation and review of laboratory results Abnormal [facility] [employer] PTon 07-26-2022 INR Coag (PPP) [Relative time] 0.9 {INR} Normal [facility] Comment on above: Result Comment: Therapeutic Range: Moderate Anticoagulant Intensity: INR = 2.0-3.0 High Anticoagulant Intensity: INR = 2.5-3.5 Performed By: #### A NAX, IFX, PHEP, FKLLC, PE #### [employer] [address] [place] [id number] Medical Office Asst: Bala Skelton MD PT Coag (PPP) [Time] 9.4 s Normal 9.1-12.[address] [facility] Comment on above: Performed By: #### A NAX, IFX, PHEP, FKLLC, PE #### [employer] [address] [place] [phone] Medical Office Asst: Bala Skelton MD Protime-INRon 07-26-2022 INR Coag (Bld) [Relative time] 0.9 {INR} [facility] Comment on above: Therapeutic Range: Moderate Anticoagulant Intensity: INR = 2.0-3.0 High Anticoagulant Intensity: INR = 2.5-3.5 PT Coag (PPP) [Time] 9.4 s [facility] Cult, Bloodon 07-25-2022 Cult, Blood Specimen Description .BLOOD Special Requests LEFT FOREARM 5ML Culture NO GROWTH 5 DAYS Report Status FINAL 07/25/2022 [facility] Comment on above: Performed By: #### B C #### [address] [phone] Medical Office Asst: Bala Skelton MD Cult,Bloodon 07-25-2022 Cult,Blood Specimen Description .BLOOD Special Requests LT WRIST 2.5ML Culture NO GROWTH 5 DAYS Report Status FINAL 07/25/2022 [facility] Comment on above: Performed By: #### B C #### [address] [address] Medical Office Asst: Bala Skelton MD Cult,Blood Specimen Description .BLOOD Special Requests RT WRIST 2.5ML Culture NO GROWTH 5 DAYS Report Status FINAL 07/25/2022 [facility] Comment on above: Performed By: #### A NAX, IFX, PHEP, FKLLC, PE #### [address] [address] Medical Office Asst: Bala Skelton MD Cult,Blood Specimen Description .BLOOD Special Requests 2ML Culture NO GROWTH 5 DAYS Report Status FINAL 07/25/2022 [facility] Comment on above: Performed By: #### A NAX, IFX, PHEP, FKLLC, PE #### [address] [address] Medical Office Asst: Bala Skelton MD XR ABDOMEN (KUB) (SINGLE [...] Bry Foreman MD 07/25/22 Final result Normal [facility] Left PCNU in place. There is questionable discontinuity of the retroperitoneal or body wall portion of the catheter. This may be artifactual related to bowel gas. Recommend repeat exam or CT. [facility] RIS CONSOLIDATED EXAMINATION: ONE SUPINE XRAY VIEW(S) [...] of the catheter. No gross bony abnormality. [facility] RIS CONSOLIDATED Bry Foreman MD - 07/25/2022 [...] bowel gas. Recommend repeat exam or CT. [facility] [employer] Phone: Radiology Study observation (narrative) [facility] [employer] Phone: XR ABDOMEN (KUB) (SINGLE AP VIEW)Ordered By: Bry Foreman on 07-25-2022 [facility] [employer] Phone: Cult,Bloodon 07-23-2022 Cult,Blood Specimen Description .BLOOD Special Requests R FOREARM 10 ML Culture NO GROWTH 5 DAYS Report Status FINAL 07/23/2022 Normal [facility] Comment on above: Performed By: #### A NAX, IFX, PHEP, FKLLC, PE #### [employer] [address] [place] [address] [phone] Medical Office Asst: Bala Skelton MD Cult,Blood Specimen Description .BLOOD Special Requests L WRIST 10 ML Culture NO GROWTH 5 DAYS Report Status FINAL 07/23/2022 Normal [facility] Comment on above: Performed By: #### L ACTIC #### [employer] [address] [place] [address] [phone] Medical Office Asst: Bala Skelton MD ALEXANDRE Screen w/reflexon 2021 ALEXANDRE Screen Negative Normal NEG [facility] Comment on above: Performed By: #### A NAX, IFX, PHEP, FKLLC, PE #### [employer] [address] [place] [address] [phone] Medical Office Asst: Bala Skelton MD Anti-dsDNA 2.1 IU/mL Normal <10.0 [facility] Comment on above: Result Comment: Reference Range: <10.0 Negative 10.0-15.0 Equivocal >15.0 Positive Performed By: #### A NAX, IFX, PHEP, FKLLC, PE #### [employer] [address] [place] [address] [phone] Medical Office Asst: Bala Skelton MD MICKIE Screen 0.1 U/mL Normal <0.7 [facility] Comment on above: Result Comment: Reference Range: <0.7 Negative 0.7-1.0 Equivocal >1.0 Positive MICKIE Screen includes U1RNP,RNP70,Sm,Ro(SS-A),La(SS-B),CENP,Scl-70,Gina-1 Performed By: #### A NAX, IFX, PHEP, FKLLC, PE #### [employer] [address] [place] [address] Medical Office Asst: Bala Skelton MD ALEXANDRE Screen with Reflexon Anti ds DNA 2.1 [facility] Comment on above: Reference Range: <10.0 Negative 10.0-15.0 Equivocal >15.0 Positive MICKIE Antibodies Screen 0.1 U/mL [facility] - 0.7 U/mL [facility] Comment on above: Reference Range: <0.7 Negative 0.7-1.0 Equivocal >1.0 Positive MICKIE Screen includes U1RNP,RNP70,Sm,Ro(SS-A),La(SS-B),CENP,Scl-70,Gina-1 Nuclear Ab IF (S) [Titer] Negative NEGATIVE [facility] Basic Metab w/rfx MGon 07-22 (cont.) Normal [facility] Comment on above: Result Comment: Aver age GFR for 50-59 years old: 93 mL/min/1.73sq m Chronic Kidney Disease: <60 mL/min/1.73sq m Kidney failure: <15 mL/min/1.73sq m eGFR calculated using average adult body mass. Additional eGFR calculator available at: http://www.Glanse.com/multiple_crcl_2012.htm Performed By: #### A NAX, IFX, PHEP, FKLLC, PE #### [employer] [facility] [place] [address] Medical Office Asst: Bala Skelton MD Anion gap [Moles/Vol] 12 mmol/L Normal 9-17 [facility] Comment on above: Performed By: #### A NAX, IFX, PHEP, FKLLC, PE #### [address] [address] Medical Office Asst: Bala Skelton MD Calcium [Mass/Vol] 8.5 mg/dL Low 8.6-10.4 [facility] Comment on above: Performed By: #### A NAX, IFX, PHEP, FKLLC, PE #### [address] [address] Medical Office Asst: Bala Skelton MD Chloride [Moles/Vol] 101 mmol/L Normal 98-[address] [facility] Comment on above: Performed By: #### A NAX, IFX, PHEP, FKLLC, PE #### [address] [address] Medical Office Asst: Bala Skelton MD CO2 [Moles/Vol] 25 mmol/L Normal 20-31 [facility] Comment on above: Performed By: #### A NAX, IFX, PHEP, FKLLC, PE #### [address] [address] Medical Office Asst: Bala Skelton MD Creatinine [Mass/Vol] 1.06 mg/dL High 0.50-0.90 [facility] Comment on above: Performed By: #### A NAX, IFX, PHEP, FKLLC, PE #### [address] [address] Medical Office Asst: Bala Skelton MD GFR, Amer >60 Normal >60 [facility] Comment on above: Performed By: #### A NAX, IFX, PHEP, FKLLC, PE #### [address] [address] Medical Office Asst: Bala Skelton MD GFR,non Amer 55 mL/min Low >[address] [facility] Comment on above: Performed By: #### A NAX, IFX, PHEP, FKLLC, PE #### [facility] [employer] [address] [place] [address] Medical Office Asst: Bala Skelton MD Glucose [Mass/Vol] 172 mg/dL High 70-99 [facility] Comment on above: Performed By: #### A NAX, IFX, PHEP, FKLLC, PE #### [facility] [employer] [address] [place] [address] Medical Office Asst: Bala Skelton MD Potassium [Moles/Vol] 4.1 mmol/L Normal 3.7-5.3 [facility] Comment on above: Performed By: #### A NAX, IFX, PHEP, FKLLC, PE #### [facility] [address] [place] [address] Medical Office Asst: Bala Skelton MD Sodium [Moles/Vol] 138 mmol/L Normal 135-144 [facility] Comment on above: Performed By: #### A NAX, IFX, PHEP, FKLLC, PE #### [facility] [employer] [address] [place] [address] Medical Office Asst: Bala Skelton MD Urea nitrogen [Mass/Vol] 24 mg/dL High 6-20 [facility] Comment on above: Performed By: #### A NAX, IFX, PHEP, FKLLC, PE #### [facility] [address] [place] [address] Medical Office Asst: Bala Skelton MD Basic Metabolic Panel w/ Ref romulo to MGon 07-22-2022 Anion gap [Moles/Vol] 12 mmol/L 9 - 17 mmol/L [facility] Calcium [Mass/Vol] 8.5 mg/dL Low 8.6 - 10. 4 mg/dL [facility] Chloride [Moles/Vol] 101 mmol/L 98 - 10 7 mmol/L [facility] CO2 [Moles/Vol] 25 mmol/L 20 - 31 mmol/L [facility] Creatinine [Mass/Vol] 1.06 mg/dL High 0.5 - 0.9 mg/dL [facility] GFR >60 60 - PI NF mL/min [facility] GFR Non- 55 mL/min Low 60 - PINF mL/min [facility] GFR/1.73 sq M.predicted MDRD (S/P/Bld) [Vol rate/Area] [facility] Comment on above: Average GFR for 50-5 9 years old: 93 mL/min/1.73sq m Chronic Kidney Disease: <60 mL/min/1.73sq m Kidney failure: <15 mL/min/1.73sq m eGFR calculated using average adult body mass. Additional eGFR calculator available at: http://www.Unidym/multiple_crcl_2012.htm Glucose [Mass/Vol] 172 mg/dL High 70 - 99 mg/dL [facility] Interpretation and review of laboratory results Abnormal [facility] Potassium [Moles/Vol] 4.1 mmol/L 3.7 - 5.3 mmol/L [facility] Sodium [Moles/Vol] 138 mmol/L 135 - 144 mmol/L [facility] Urea nitrogen (BldV) [Mass/Vol] 24 mg/dL High 6 - 20 mg/dL [facility] Electrophoresis Protein, Ser umon 07-22-2022 Albumin % 57 % 45 - 65 % [facility] Albumin [Mass/Vol] 3.6 g/dL 3.2 - 5.2 g/dL [facility] Alpha 1 % 4 % 3 - 6 % [facility] Alpha 2 % 15 % High 6 - 13 % [facility] Erllc-0-Sgqleswa 0.2 g/dL 0.1 - 0.4 g/dL [facility] Yvflh-5-Wikvkefi 0.9 g/dL 0.5 - 0.9 g/dL [facility] Beta Globulin 0.9 g/dL 0.5 - 1.1 g/dL [facility] Beta Percent 14 % 11 - 19 % [facility] Free PSA/Total PSA [Mass fraction] 6.3 g/dL Low 6.4 - 8.3 g/dL [facility] Gamma Globulin 0.6 g/dL 0.5 - 1.5 g/dL [facility] Gamma Globulin % 10 % 9 - 20 % [facility] Interpretation and review of laboratory results Abnormal [facility] Pathologist Cyto stain Nom (Cvx/Vag) [ID] Reviewed by pathologist: Mary Stovall M.D. [facility] Protein Electrophoresis, Serum NORMAL ELECTROPHORETIC PATTERN [facility] Comment on above: IMMUNOFIXATION IS NE GATIVE FOR MONOCLONAL IMMUNOGLOBULIN. Total Prot. Sum 6.2 g/dL Low 6.3 - 8.2 g/dL [facility] Total Prot. Sum,% 100 % 98 - 102 % [facility] Hepatitis Acute [facility] 07-22 Hep A Ab,IgM Non-Reactive Normal [facility] Comment on above: Performed By: #### A NAX, IFX, PHEP, FKLLC, PE #### [employer] [address] [place] [address] [phone] Medical Office Asst: Bala Skelton MD Hep B Core Ab,IgM Non-Reactive Normal [facility] Comment on above: Performed By: #### A NAX, IFX, PHEP, FKLLC, PE #### [employer] [facility] [place], [place] [phone] Medical Office Asst: Bala Skelton MD Hep B Surf Ag Non-Reactive Normal [facility] Comment on above: Performed By: #### A NAX, IFX, PHEP, FKLLC, PE #### [employer] [address] [place] [address] [phone] Medical Office Asst: Bala Skelton MD Hep C Ab Non-Reactive Normal NR [facility] Comment on above: Result Comment: The [...] A NAX, IFX, PHEP, FKLLC, PE #### [facility] [address] [place] [address] Medical Office Asst: Bala Skelton MD Hepatitis Panel, Acuteon HAV IgM IA Qn (S) Non-Reactive NONREACTIVE [facility] Hep B Core Ab, IgM Non-Reactive NONREACTIVE [facility] Hepatitis B Surface Ag Non-Reactive NONREACTIVE [facility] Hepatitis C Ab Non-Reactive NONREACTIVE [facility] Comment on above: The hepatitis C [...] recommended by ordering HCV RNA by PCR. [facility] Immunofixation serum profile on 07-22-2022 Pathologist Cyto stain Nom (Cvx/Vag) [ID] Reviewed by pathologist: Mary Stovall M.D. [facility] Serum IFX Interp IMMUNOFIXATION IS NEGATIVE FOR MONOCLONAL IMMUNOGLOBULIN. [facility] Immunofixation urine random profileon 07-22-2022 Protein (U) [Mass/Vol] 144 mg/dL [facility] Urine IFX Interp IMMUNOFIXATION IS NEGATIVE FOR MONOCLONAL IMMUNOGLOBULIN. [facility] Urine IFX Specimen .URINE [facility] Immunofixation,Bloodon 07-22 IFX - Interpret. IMMUNOFIXATION IS NEGATIVE FOR MONOCLONAL IMMUNOGLOBULIN. Normal [facility] Comment on above: Performed By: #### A NAX, IFX, PHEP, FKLLC, PE #### [facility] [employer] [address] [place] [address] [phone] Medical Office Asst: Bala Skelton MD Pathologist Review: Reviewed by pathologist: Mary Stovall M.D. [facility] Comment on above: Performed By: #### A NAX, IFX, PHEP, FKLLC, PE #### [facility] [address] [place] [address] [phone] Medical Office Asst: Bala Skelton MD Immunofixation,Urineon 07-22 Ur. IFX-Interpret IMMUNOFIXATION IS NEGATIVE FOR MONOCLONAL IMMUNOGLOBULIN. [facility] Comment on above: Performed By: #### A NAX, IFX, PHEP, FKLLC, PE #### [facility] [employer] [address] [place] [address] [phone] Medical Office Asst: Bala Skelton MD Lactic Acidon 07-22-2022 Lactic Acid,Whole Bl 1.9 mmol/L Normal 0.7-2.[address] [facility] Comment on above: Performed By: #### A NAX, IFX, PHEP, FKLLC, PE #### [facility] [address] [place] [address] [phone] Medical Office Asst: Bala Skelton MD Lactic Acid, Whole Blood 1.9 mmol/L 0.7 - 2.1 mmol/L [facility] Lactic Acid,Whole Bl 2.3 mmol/L High 0.7-2.[address] [facility] Comment on above: Performed By: #### L ACTIC #### [facility] [employer] [address] [place] [address] [phone] Medical Office Asst: Bala Skelton MD Interpretation and review of laboratory results Abnormal [facility] Lactic Acid, Whole Blood 2.3 mmol/L High 0.7 - 2.1 mmol/L [facility] POC Glucose Fingerstickon Glucose [Mass/Vol] 164 mg/dL High 65 - 105 mg/dL [facility] Interpretation and review of laboratory results Abnormal [facility] Glucose [Mass/Vol] 177 mg/dL High 65 - 105 mg/dL [facility] Interpretation and review of laboratory results Abnormal [facility] Prot. Electroph, Blon 2021 Pathologist Review: Reviewed by pathologist: Mary Stovall M.D. [facility] Comment on above: Performed By: #### A NAX, IFX, PHEP, FKLLC, PE #### [address] [address] Medical Office Asst: Bala Skelton MD Prot. Elect-Interp NORMAL ELECTROPHORET IC PATTERN Normal [facility] Comment on above: Result Comment: IMMU NOFIXATION IS NEGATIVE FOR MONOCLONAL IMMUNOGLOBULIN. Performed By: #### A NAX, IFX, PHEP, FKLLC, PE #### [address] [address] Medical Office Asst: Bala Skelton MD Total Prot. Sum 6.2 g/dL Low 6.3-8.2 [facility] Comment on above: Performed By: #### A NAX, IFX, PHEP, FKLLC, PE #### [address] [address] Medical Office Asst: Bala Skelton MD Total Prot. Sum,% 100 % Normal 98-102 [facility] Comment on above: Performed By: #### A NAX, IFX, PHEP, FKLLC, PE #### [address] [address] Medical Office Asst: Bala Skelton MD Prot. Electrophoresis, Uron 07-22-2022 Pathologist Review: Reviewed by pathologist: Mary Stovall M.D. [facility] Comment on above: Performed By: #### A NAX, IFX, PHEP, FKLLC, PE #### [employer] [address] [place], [place] [phone] Medical Office Asst: Bala Skelton MD Ur.-Prot.Elect-Inter ELEVATED PROTEIN CONCENTRATION. MOST SERUM PROTEINS ARE DETECTED IN THIS URINE. Normal [facility] Comment on above: Result Comment: USUA LLY OBSERVED WITH MARKEDLY INCREASED NON-SELECTIVE GLOMERULAR PERMEABILITY (i.e. SEVERE GLOMERULAR DISEASE), CONTAMINATION OF URINE WITH BLOOD, OR A COMBINATION OF THESE. A DECREASE IN TUBULAR FUNCTION CANNOT BE RULED OUT. IMMUNOFIXATION IS NEGATIVE FOR MONOCLONAL IMMUNOGLOBULIN. Performed By: #### A NAX, IFX, PHEP, FKLLC, PE #### [employer] [address] [place] [address] Medical Office Asst: Bala Skelton MD Protein Electrophoresis, Uri neon 07-22-2022 P E Interpretation, U ELEVATED PROTEIN CONCENTRATION. MOST SERUM PROTEINS ARE DETECTED IN THIS URINE. USUALLY OBSERVED WITH MARKEDLY INCREASED NON-SELECTIVE GLOMERULAR PERMEABILITY (i.e. SEVERE GLOMERULAR DISEASE), [facility] Comment on above: URINE WITH BLOOD, OR A COMBINATION OF THESE. A DECREASE IN TUBULAR FUNCTION CANNOT BE RULED OUT. IMMUNOFIXATION IS NEGATIVE FOR MONOCLONAL IMMUNOGLOBULIN. Pathologist Reviewed by pathologist: Mary Stovall M.D. [employer] Protein (U) [Mass/Vol] 144 mg/dL [facility] Specimen Type .[facility]INE [facility] Basic Metab w/rfx MGon 07-21 (cont.) Normal [facility] Comment on above: Result Comment: Aver age GFR for 50-59 years old: 93 mL/min/1.73sq m Chronic Kidney Disease: <60 mL/min/1.73sq m Kidney failure: <15 mL/min/1.73sq m eGFR calculated using average adult body mass. Additional eGFR calculator available at: http://www.Glanse.[employer]/multiple_crcl_2012.htm Performed By: #### A NAX, IFX, PHEP, FKLLC, PE #### [address] [address] Medical Office Asst: Bala Skelton MD Anion gap [Moles/Vol] 12 mmol/L Normal 9-17 [facility] Comment on above: Performed By: #### A NAX, IFX, PHEP, FKLLC, PE #### [address] [address] Medical Office Asst: Bala Skelton MD Calcium [Mass/Vol] 8.3 mg/dL Low 8.6-10.4 [facility] Comment on above: Performed By: #### A NAX, IFX, PHEP, FKLLC, PE #### [address] [address] Medical Office Asst: Bala Skelton MD Chloride [Moles/Vol] 101 mmol/L Normal 98-[address] [facility] Comment on above: Performed By: #### A NAX, IFX, PHEP, FKLLC, PE #### [address] [address] Medical Office Asst: Bala Skelton MD CO2 [Moles/Vol] 23 mmol/L Normal 20-31 [facility] Comment on above: Performed By: #### A NAX, IFX, PHEP, FKLLC, PE #### [address] [address] Medical Office Asst: Bala Skelton MD Creatinine [Mass/Vol] 1.00 mg/dL High 0.50-0.90 [facility] Comment on above: Performed By: #### A NAX, IFX, PHEP, FKLLC, PE #### [address] [address] Medical Office Asst: Bala Skelton MD GFR, Amer >60 Normal >60 [facility] Comment on above: Performed By: #### A NAX, IFX, PHEP, FKLLC, PE #### [facility] [employer] [address] [place] [address] Medical Office Asst: Bala Skelton MD GFR,non Amer 59 mL/min Low >[address] [facility] Comment on above: Performed By: #### A NAX, IFX, PHEP, FKLLC, PE #### [facility] [employer] [address] [place] [address] Medical Office Asst: Bala Skelton MD Glucose [Mass/Vol] 157 mg/dL High 70-99 [facility] Comment on above: Performed By: #### A NAX, IFX, PHEP, FKLLC, PE #### [facility] [employer] [address] [place] [address] Medical Office Asst: Bala Skelton MD Potassium [Moles/Vol] 3.7 mmol/L Normal 3.7-5.3 [facility] Comment on above: Performed By: #### A NAX, IFX, PHEP, FKLLC, PE #### [address] [address] Medical Office Asst: Bala Skelton MD Sodium [Moles/Vol] 136 mmol/L Normal 135-144 [facility] Comment on above: Performed By: #### A NAX, IFX, PHEP, FKLLC, PE #### [facility] [employer] [address] [place] [address] Medical Office Asst: Bala Skelton MD Urea nitrogen [Mass/Vol] 26 mg/dL High 6-20 [facility] Comment on above: Performed By: #### A NAX, IFX, PHEP, FKLLC, PE #### [facility] [employer] [address] [place] [address] Medical Office Asst: Bala Skelton MD (cont.) Normal [facility] Comment on above: Result Comment: Aver age GFR for 50-59 years old: 93 mL/min/1.73sq m Chronic Kidney Disease: <60 mL/min/1.73sq m Kidney failure: <15 mL/min/1.73sq m eGFR calculated using average adult body mass. Additional eGFR calculator available at: http://www.Unidym/multiple_crcl_2012.htm Performed By: #### B C #### [facility] [employer] [address] [place] [phone] Medical Office Asst: Bala Skelton MD Anion gap [Moles/Vol] 13 mmol/L Normal 9-17 [facility] Comment on above: Performed By: #### B C #### [address] [address] Medical Office Asst: Bala Skelton MD Calcium [Mass/Vol] 8.1 mg/dL Low 8.6-10.4 [facility] Comment on above: Performed By: #### B C #### [facility] [employer] [address] [place] [address] Medical Office Asst: Bala Skelton MD Chloride [Moles/Vol] 101 mmol/L Normal 98-[address] [facility] Comment on above: Performed By: #### B C #### [facility] [employer] [address] [place] [address] Medical Office Asst: Bala Skelton MD CO2 [Moles/Vol] 20 mmol/L Normal 20-31 [facility] Comment on above: Performed By: #### B C #### [facility] [employer] [address] [place] [address] Medical Office Asst: Bala Skelton MD Creatinine [Mass/Vol] 1.28 mg/dL High 0.50-0.90 [facility] Comment on above: Performed By: #### B C #### [address] [address] Medical Office Asst: Bala Skelton MD GFR, Amer 54 mL/min Low >60 [facility] Comment on above: Performed By: #### B C #### [address] [address] Medical Office Asst: Bala Skelton MD GFR,non Amer 44 mL/min Low >[address] [facility] Comment on above: Performed By: #### B C #### [address] [address] Medical Office Asst: Bala Skelton MD Glucose [Mass/Vol] 224 mg/dL High 70-99 [facility] Comment on above: Performed By: #### B C #### [address] [address] Medical Office Asst: Bala Skelton MD Potassium [Moles/Vol] 3.8 mmol/L Normal 3.7-5.3 [facility] Comment on above: Performed By: #### B C #### [address] [address] Medical Office Asst: Bala Skelton MD Sodium [Moles/Vol] 134 mmol/L Low 135-144 [facility] Comment on above: Performed By: #### B C #### [address] [address] Medical Office Asst: Bala Skelton MD Urea nitrogen [Mass/Vol] 28 mg/dL High 6-20 [facility] Comment on above: Performed By: #### B C #### [address] [address] Medical Office Asst: Bala Skelton MD Anion gap [Moles/Vol] 13 mmol/L Normal 9-17 [facility] Comment on above: Performed By: #### A NAX, IFX, PHEP, FKLLC, PE #### [address] [place] [address] Medical Office Asst: Bala Skelton MD Sodium [Moles/Vol] 131 mmol/L Low 135-144 [facility] Comment on above: Performed By: #### A NAX, IFX, PHEP, FKLLC, PE #### [facility] [employer] [address] [place] [phone] Medical Office Asst: Bala Skelton MD (cont.) Normal [facility] Comment on above: Result Comment: Aver age GFR for 50-59 years old: 93 mL/min/1.73sq m Chronic Kidney Disease: <60 mL/min/1.73sq m Kidney failure: <15 mL/min/1.73sq m eGFR calculated using average adult body mass. Additional eGFR calculator available at: http://www.Unidym/multiple_crcl_2012.htm Performed By: #### A NAX, IFX, PHEP, FKLLC, PE #### [facility] [employer] [address] [place] [address] Medical Office Asst: Bala Skelton MD Calcium [Mass/Vol] 8.4 mg/dL Low 8.6-10.4 [facility] Comment on above: Performed By: #### A NAX, IFX, PHEP, FKLLC, PE #### [facility] [employer] [address] [place] [address] Medical Office Asst: Bala Skelton MD Chloride [Moles/Vol] 100 mmol/L Normal 98-[address] [facility] Comment on above: Performed By: #### A NAX, IFX, PHEP, FKLLC, PE #### [facility] [employer] [address] [place] [address] Medical Office Asst: Bala Skelton MD CO2 [Moles/Vol] 18 mmol/L Low 20-31 [facility] Comment on above: Performed By: #### A NAX, IFX, PHEP, FKLLC, PE #### [facility] [employer] [address] [place] [id number] Medical Office Asst: Bala Skelton MD Creatinine [Mass/Vol] 1.37 mg/dL High 0.50-0.90 [facility] Comment on above: Performed By: #### A NAX, IFX, PHEP, FKLLC, PE #### [facility] [address] [place] [address] 11377 Medical Office Asst: Bala Skelton MD GFR, Amer 49 mL/min Low >60 [facility] Comment on above: Performed By: #### A NAX, IFX, PHEP, FKLLC, PE #### [facility] [employer] [address] [place] [address] 42889 Medical Office Asst: Bala Skelton MD GFR,non Amer 41 mL/min Low >[address] [facility] Comment on above: Performed By: #### A NAX, IFX, PHEP, FKLLC, PE #### [facility] [employer] [address] [place] [address] 81363 Medical Office Asst: Bala Skelton MD Glucose [Mass/Vol] 184 mg/dL High 70-99 [facility] Comment on above: Performed By: #### A NAX, IFX, PHEP, FKLLC, PE #### [address] [address] Medical Office Asst: Bala Skelton MD Potassium [Moles/Vol] 3.8 mmol/L Normal 3.7-5.3 [facility] Comment on above: Performed By: #### A NAX, IFX, PHEP, FKLLC, PE #### [facility] [employer] [address] [place] [address] 10951 Medical Office Asst: Bala Skelton MD Urea nitrogen [Mass/Vol] 27 mg/dL High 6-20 [facility] Comment on above: Performed By: #### A NAX, IFX, PHEP, FKLLC, PE #### [facility] [address] [place] [address] Medical Office Asst: Bala Skelton MD Basic Metabolic Panel w/ Ref romulo to MGon 07-21-2022 Anion gap [Moles/Vol] 12 mmol/L 9 - 17 mmol/L [facility] Calcium [Mass/Vol] 8.3 mg/dL Low 8.6 - 10. 4 mg/dL [facility] Chloride [Moles/Vol] 101 mmol/L 98 - 10 7 mmol/L [facility] CO2 [Moles/Vol] 23 mmol/L 20 - 31 mmol/L [facility] Creatinine [Mass/Vol] 1 mg/dL High 0.5 - 0.9 mg/dL [facility] GFR >60 60 - PI NF mL/min [facility] GFR Non- 59 mL/min Low 60 - PINF mL/min [facility] GFR/1.73 sq M.predicted MDRD (S/P/Bld) [Vol rate/Area] [facility] [employer] Comment on above: Average GFR for 50-5 9 years old: 93 mL/min/1.73sq m Chronic Kidney Disease: <60 mL/min/1.73sq m Kidney failure: <15 mL/min/1.73sq m eGFR calculated using average adult body mass. Additional eGFR calculator available at: http://www.Glanse.City Sports/multiple_crcl_2012.htm Glucose [Mass/Vol] 157 mg/dL High 70 - 99 mg/dL [facility] [employer] Interpretation and review of laboratory results Abnormal [facility] Potassium [Moles/Vol] 3.7 mmol/L 3.7 - 5.3 mmol/L [facility] Sodium [Moles/Vol] 136 mmol/L 135 - 144 mmol/L [facility] [employer] Urea nitrogen (BldV) [Mass/Vol] 26 mg/dL High 6 - 20 mg/dL [facility] Anion gap [Moles/Vol] 13 mmol/L 9 - 17 mmol/L [facility] Calcium [Mass/Vol] 8.1 mg/dL Low 8.6 - 10. 4 mg/dL [facility] Chloride [Moles/Vol] 101 mmol/L 98 - 10 7 mmol/L [facility] CO2 [Moles/Vol] 20 mmol/L 20 - 31 mmol/L [facility] Creatinine [Mass/Vol] 1.28 mg/dL High 0.5 - 0.9 mg/dL [facility] GFR 54 mL/min Low 60 - PI NF mL/min [facility] GFR Non- 44 mL/min Low 60 - PINF mL/min [facility] GFR/1.73 sq M.predicted MDRD (S/P/Bld) [Vol rate/Area] [facility] Comment on above: Average GFR for 50-5 9 years old: 93 mL/min/1.73sq m Chronic Kidney Disease: <60 mL/min/1.73sq m Kidney failure: <15 mL/min/1.73sq m eGFR calculated using average adult body mass. Additional eGFR calculator available at: http://www.Unidym/multiple_crcl_2012.htm Glucose [Mass/Vol] 224 mg/dL High 70 - 99 mg/dL [facility] Interpretation and review of laboratory results Abnormal [facility] Potassium [Moles/Vol] 3.8 mmol/L 3.7 - 5.3 mmol/L [facility] Sodium [Moles/Vol] 134 mmol/L Low 135 - 144 mmol/L [facility] Urea nitrogen (BldV) [Mass/Vol] 28 mg/dL High 6 - 20 mg/dL [facility] Immunofixation,Urineon 07-21 Protein (U) [Mass/Vol] 144 mg/dL Normal [facility] Comment on above: Performed By: #### A NAX, IFX, PHEP, FKLLC, PE #### [facility] [place] [address] Medical Office Asst: Bala Skelton MD Type of Specimen .URINE Normal [facility] Comment on above: Performed By: #### A NAX, IFX, PHEP, FKLLC, PE #### [facility] [address] [place] [address] [phone] Medical Office Asst: Bala Skelton MD Lactic Acidon 07-21-2022 Lactic Acid,Whole Bl 2.5 mmol/L High 0.7-2.[address] [facility] Comment on above: Performed By: #### A NAX, IFX, PHEP, FKLLC, PE #### [facility] [address] [place] [address] [phone] Medical Office Asst: Bala Skelton MD Interpretation and review of laboratory results Abnormal [facility] Lactic Acid, Whole Blood 2.5 mmol/L High 0.7 - 2.1 mmol/L [facility] Lactic Acid,Whole Bl 1.9 mmol/L Normal 0.7-2.[address] [facility] Comment on above: Performed By: #### L ACTIC #### [facility] [address] [place] [address] [phone] Medical Office Asst: Bala Skelton MD Lactic Acid, Whole Blood 1.9 mmol/L 0.7 - 2.1 mmol/L [facility] Lactic Acid,Whole Bl 3.0 mmol/L High 0.7-2.[address] [facility] Comment on above: Performed By: #### A NAX, IFX, PHEP, FKLLC, PE #### [facility] [address] [place] [address] [phone] Medical Office Asst: Bala Skelton MD Interpretation and review of laboratory results Abnormal [facility] Lactic Acid, Whole Blood 3.0 mmol/L High 0.7 - 2.1 mmol/L [facility] Lactic Acid,Whole Bl 2.2 mmol/L High 0.7-2.[address] [facility] Comment on above: Performed By: #### A NAX, IFX, PHEP, FKLLC, PE #### [employer] [facility] [place], [place] [phone] Medical Office Asst: Bala Skelton MD Interpretation and review of laboratory results Abnormal [facility] Lactic Acid, Whole Blood 2.2 mmol/L High 0.7 - 2.1 mmol/L [facility] POC Glucose Fingerstickon Glucose [Mass/Vol] 210 mg/dL High 65 - 105 mg/dL [facility] Interpretation and review of laboratory results Abnormal [facility] Glucose [Mass/Vol] 142 mg/dL High 65 - 105 mg/dL [facility] Interpretation and review of laboratory results Abnormal [facility] Glucose [Mass/Vol] 227 mg/dL High 65 - 105 mg/dL [facility] Interpretation and review of laboratory results Abnormal [facility] Glucose [Mass/Vol] 219 mg/dL High 65 - 105 mg/dL [facility] Interpretation and review of laboratory results Abnormal [facility] Prot. Electroph, Blon 2021 Albumin [Mass/Vol] 3.6 g/dL Normal 3.2-5.2 [facility] Comment on above: Performed By: #### A NAX, IFX, PHEP, FKLLC, PE #### [facility] [address] [place] [address] [phone] Medical Office Asst: Bala Skelton MD Albumin, % 57 % Normal 45-65 [facility] Comment on above: Performed By: #### A NAX, IFX, PHEP, FKLLC, PE #### [facility] [address] [place] [address] [phone] Medical Office Asst: Bala Skelton MD Qwuln-3-aqjbvlshr 0.2 g/dL Normal 0.1-0.4 [facility] Comment on above: Performed By: #### A NAX, IFX, PHEP, FKLLC, PE #### [facility] [address] [place] [address] 58324 Medical Office Asst: Bala Skelton MD Dyoyk-8-tdqeizjqs,% 4 % Normal 3-6 [facility] Comment on above: Performed By: #### A NAX, IFX, PHEP, FKLLC, PE #### [facility] [address] [place] [address] [phone] Medical Office Asst: Bala Skelton MD Tqrly-4-smjdfehkj 0.9 g/dL Normal 0.5-0.9 [facility] Comment on above: Performed By: #### A NAX, IFX, PHEP, FKLLC, PE #### [address] [address] Medical Office Asst: Bala Skelton MD Dijlb-1-geampjhjm,% 15 % High 6-13 [facility] Comment on above: Performed By: #### A NAX, IFX, PHEP, FKLLC, PE #### [address] [address] Medical Office Asst: Bala Skelton MD Beta-globulins 0.9 g/dL Normal 0.5-1.1 [facility] Comment on above: Performed By: #### A NAX, IFX, PHEP, FKLLC, PE #### [facility] [address] [place] [address] Medical Office Asst: Bala Skelton MD Beta-globulins,% 14 % Normal 11-19 [facility] Comment on above: Performed By: #### A NAX, IFX, PHEP, FKLLC, PE #### [address] [address] Medical Office Asst: Bala Skelton MD Gamma-globulins 0.6 g/dL Normal 0.5-1.5 [facility] Comment on above: Performed By: #### A NAX, IFX, PHEP, FKLLC, PE #### [facility] [address] [place], [place] [phone] Medical Office Asst: Bala Skelton MD Gamma-globulins,% 10 % Normal - [facility] Comment on above: Performed By: #### A NAX, IFX, PHEP, FKLLC, PE #### [facility] [address] [place], [place] [phone] Medical Office Asst: Bala Skelton MD Prot. Electrophoresis, Uron 07-21-2022 Total Protein Conc. 144 mg/dL Normal [facility] Comment on above: Performed By: #### A NAX, IFX, PHEP, FKLLC, PE #### [facility] [place], [place] [phone] Medical Office Asst: Bala Skelton MD BLOOD GAS, VENOUSon 07-20-20 22 Carboxyhemoglobin 1.4 % 0 - 5 % [employer] Comment on above: Reference Range: Non-Smokers 0-2% Average Smoker 2-4% Heavy Smoker <10% FIO2 INFORMATION NOT PROVIDED [facility] [employer] HCO3 (Bld) [Moles/Vol] 19.6 mmol/L Low 24 - 30 mmol/L [facility] Interpretation and review of laboratory results Abnormal [facility] [employer] Negative Base Excess, Olaf 5.6 mmol/L High 0 - 2 mmol/L [facility] Oxygen saturation in Blood 74.4 % 60 - 85 % [facility] pCO2, Olaf 39.5 39 - 55 [facility] pH, Olaf 7.316 Low 7.32 - 7.42 [facility] pO2, Olaf 36.9 30 - 50 [facility] Pt Temp 37.0 [employer] [facility] Basic Metab w/rfx MGon 07-20 (cont.) Normal [facility] Comment on above: Result Comment: Aver age GFR for 50-59 years old: 93 mL/min/1.73sq m Chronic Kidney Disease: <60 mL/min/1.73sq m Kidney failure: <15 mL/min/1.73sq m eGFR calculated using average adult body mass. Additional eGFR calculator available at: http://www.Glanse.City Sports/multiple_crcl_2012.htm Performed By: #### A NAX, IFX, PHEP, FKLLC, PE #### [facility] [address] [place] [phone] Medical Office Asst: Bala Skelton MD Anion gap [Moles/Vol] 13 mmol/L Normal 9-17 [facility] Comment on above: Performed By: #### A NAX, IFX, PHEP, FKLLC, PE #### [address] [address] Medical Office Asst: Bala Skelton MD Calcium [Mass/Vol] 8.7 mg/dL Normal 8.6-10.4 [facility] Comment on above: Performed By: #### A NAX, IFX, PHEP, FKLLC, PE #### [address] [address] Medical Office Asst: Bala Skelton MD Chloride [Moles/Vol] 97 mmol/L Low 98-[address] [facility] Comment on above: Performed By: #### A NAX, IFX, PHEP, FKLLC, PE #### [facility] [address] [place] [address]85 Medical Office Asst: Bala Skelton MD CO2 [Moles/Vol] 18 mmol/L Low 20-31 [facility] Comment on above: Performed By: #### A NAX, IFX, PHEP, FKLLC, PE #### [facility] [address] [place] [phone] Medical Office Asst: Bala Skelton MD Creatinine [Mass/Vol] 1.62 mg/dL High 0.50-0.90 [facility] Comment on above: Performed By: #### A NAX, IFX, PHEP, FKLLC, PE #### [facility] [address] [place] [phone] Medical Office Asst: Bala Skelton MD GFR, Amer 41 mL/min Low >60 [facility] Comment on above: Performed By: #### A NAX, IFX, PHEP, FKLLC, PE #### [facility] [address] [place] [address] Medical Office Asst: Bala Skelton MD GFR,non Amer 34 mL/min Low >[address] [facility] Comment on above: Performed By: #### A NAX, IFX, PHEP, FKLLC, PE #### [address] [address] Medical Office Asst: Bala Skelton MD Glucose [Mass/Vol] 360 mg/dL High 70-99 [facility] Comment on above: Performed By: #### A NAX, IFX, PHEP, FKLLC, PE #### [address] [address] Medical Office Asst: Bala Skelton MD Potassium [Moles/Vol] 5.1 mmol/L Normal 3.7-5.3 [facility] Comment on above: Performed By: #### A NAX, IFX, PHEP, FKLLC, PE #### [address] [address] Medical Office Asst: Bala Skelton MD Sodium [Moles/Vol] 128 mmol/L Low 135-144 [facility] Comment on above: Performed By: #### A NAX, IFX, PHEP, FKLLC, PE #### [facility] [employer] [address] [place] [address] [phone] Medical Office Asst: Bala Skelton MD Urea nitrogen [Mass/Vol] 32 mg/dL High 6-20 [facility] Comment on above: Performed By: #### A NAX, IFX, PHEP, FKLLC, PE #### [facility] [employer] [address] [place] [address] Medical Office Asst: Bala Skelton MD (cont.) [facility] Comment on above: Result Comment: Aver age GFR for 50-59 years old: 93 mL/min/1.73sq m Chronic Kidney Disease: <60 mL/min/1.73sq m Kidney failure: <15 mL/min/1.73sq m eGFR calculated using average adult body mass. Additional eGFR calculator available at: http://www.Unidym/multiple_crcl_2011.htm Performed By: #### A NAX, IFX, PHEP, FKLLC, PE #### [address] [address] Medical Office Asst: Bala Skelton MD Anion gap [Moles/Vol] 14 mmol/L Normal 9-17 [facility] Comment on above: Performed By: #### A NAX, IFX, PHEP, FKLLC, PE #### [facility] [employer] [address] [place] [address] Medical Office Asst: Bala Skelton MD Calcium [Mass/Vol] 8.2 mg/dL Low 8.6-10.4 [facility] Comment on above: Performed By: #### A NAX, IFX, PHEP, FKLLC, PE #### [facility] [employer] [address] [place] [address] Medical Office Asst: Bala Skelton MD Chloride [Moles/Vol] 96 mmol/L Low 98-[address] [facility] Comment on above: Performed By: #### A NAX, IFX, PHEP, FKLLC, PE #### [facility] [employer] [address] [place] [address] Medical Office Asst: Bala Skelton MD CO2 [Moles/Vol] 17 mmol/L Low 20-31 [facility] Comment on above: Performed By: #### A NAX, IFX, PHEP, FKLLC, PE #### [facility] [address] [place] [address] Medical Office Asst: Bala Skelton MD Creatinine [Mass/Vol] 1.68 mg/dL High 0.50-0.90 [facility] Comment on above: Performed By: #### A NAX, IFX, PHEP, FKLLC, PE #### [address] [address] Medical Office Asst: Bala Skelton MD GFR, Amer 39 mL/min Low >60 [facility] Comment on above: Performed By: #### A NAX, IFX, PHEP, FKLLC, PE #### [address] [address] Medical Office Asst: Bala Skelton MD GFR,non Amer 32 mL/min Low >[address] [facility] Comment on above: Performed By: #### A NAX, IFX, PHEP, FKLLC, PE #### [facility] [employer] [address] [place] [address] Medical Office Asst: Bala Skelton MD Potassium [Moles/Vol] 4.4 mmol/L Normal 3.7-5.3 [facility] Comment on above: Performed By: #### A NAX, IFX, PHEP, FKLLC, PE #### [facility] [employer] [address] [place] [address] Medical Office Asst: Bala Skelton MD Sodium [Moles/Vol] 127 mmol/L Low 135-144 [facility] Comment on above: Performed By: #### A NAX, IFX, PHEP, FKLLC, PE #### [facility] [employer] [address] [place] [address] [phone] Medical Office Asst: Bala Skelton MD Urea nitrogen [Mass/Vol] 33 mg/dL High 6-20 [facility] Comment on above: Performed By: #### A NAX, IFX, PHEP, FKLLC, PE #### [address] [address] Medical Office Asst: Bala Skelton MD Glucose [Mass/Vol] 427 mg/dL Critically high 70-99 B ON [facility] Comment on above: Performed By: #### A NAX, IFX, PHEP, FKLLC, PE #### [address] [address] Medical Office Asst: Bala Skelton MD Glucose [Mass/Vol] 416 mg/dL Critically high 70-99 [facility] Comment on above: Performed By: #### A NAX, IFX, PHEP, FKLLC, PE #### [address] [phone] Medical Office Asst: Bala Skelton MD (cont.) [facility] Comment on above: Result Comment: Aver age GFR for 50-59 years old: 93 mL/min/1.73sq m Chronic Kidney Disease: <60 mL/min/1.73sq m Kidney failure: <15 mL/min/1.73sq m eGFR calculated using average adult body mass. Additional eGFR calculator available at: http://www.Glanse.City Sports/multiple_crcl_2012.htm Performed By: #### A NAX, IFX, PHEP, FKLLC, PE #### [address] [address] Medical Office Asst: Bala Skelton MD Anion gap [Moles/Vol] 15 mmol/L Normal 9-17 [facility] Comment on above: Performed By: #### A NAX, IFX, PHEP, FKLLC, PE #### [address] [address] Medical Office Asst: Bala Skelton MD Calcium [Mass/Vol] 8.5 mg/dL Low 8.6-10.4 [facility] Comment on above: Performed By: #### A NAX, IFX, PHEP, FKLLC, PE #### [address] [address] Medical Office Asst: Bala Skelton MD Chloride [Moles/Vol] 95 mmol/L Low 98-[address] [facility] Comment on above: Performed By: #### A NAX, IFX, PHEP, FKLLC, PE #### [address] [address] Medical Office Asst: Bala Skelton MD CO2 [Moles/Vol] 18 mmol/L Low 20-31 [facility] Comment on above: Performed By: #### A NAX, IFX, PHEP, FKLLC, PE #### [address] [address] Medical Office Asst: Bala Skelton MD Creatinine [Mass/Vol] 2.11 mg/dL High 0.50-0.90 [facility] Comment on above: Performed By: #### A NAX, IFX, PHEP, FKLLC, PE #### [address] [address] Medical Office Asst: Bala Skelton MD GFR, Amer 30 mL/min Low >60 [facility] Comment on above: Performed By: #### A NAX, IFX, PHEP, FKLLC, PE #### [address] [address] Medical Office Asst: Bala Skelton MD GFR,non Amer 25 mL/min Low >[address] [facility] Comment on above: Performed By: #### A NAX, IFX, PHEP, FKLLC, PE #### [facility] [address] [place] [address] Medical Office Asst: Bala Skelton MD Potassium [Moles/Vol] 5.0 mmol/L Normal 3.7-5.3 [facility] Comment on above: Performed By: #### A NAX, IFX, PHEP, FKLLC, PE #### [facility] [address] [place] [address] Medical Office Asst: Bala Skelton MD Sodium [Moles/Vol] 128 mmol/L Low 135-144 [facility] Comment on above: Performed By: #### A NAX, IFX, PHEP, FKLLC, PE #### [facility] [address] [place] [address] Medical Office Asst: Bala Skelton MD Urea nitrogen [Mass/Vol] 38 mg/dL High 6-20 [facility] Comment on above: Performed By: #### A NAX, IFX, PHEP, FKLLC, PE #### [facility] [address] [place] [address] Medical Office Asst: Bala Skelton MD Basic Metabolic Panel 07-07 Anion gap [Moles/Vol] 16 mmol/L 9 - 17 mmol/L [facility] Calcium [Mass/Vol] 8.2 mg/dL Low 8.6 - 10. 4 mg/dL [facility] Chloride [Moles/Vol] 95 mmol/L Low 98 - 10 7 mmol/L [facility] CO2 [Moles/Vol] 17 mmol/L Low 20 - 31 mmol/L [facility] Creatinine [Mass/Vol] 2.35 mg/dL High 0.5 - 0.9 mg/dL [facility] GFR 27 mL/min Low 60 - PI NF mL/min [facility] GFR Non- 22 mL/min Low 60 - PINF mL/min [facility] GFR/1.73 sq M.predicted MDRD (S/P/Bld) [Vol rate/Area] [facility] Comment on above: Average GFR for 50-5 9 years old: 93 mL/min/1.73sq m Chronic Kidney Disease: <60 mL/min/1.73sq m Kidney failure: <15 mL/min/1.73sq m eGFR calculated using average adult body mass. Additional eGFR calculator available at: http://www.Unidym/multiple_crcl_2012.htm Glucose [Mass/Vol] 439 mg/dL Critically high 70 - 99 mg/d L [facility] [employer] Interpretation and review of laboratory results Abnormal [facility] Potassium [Moles/Vol] 5.2 mmol/L 3.7 - 5.3 mmol/L [facility] Sodium [Moles/Vol] 128 mmol/L Low 135 - 144 mmol/L [facility] [employer] Urea nitrogen (BldV) [Mass/Vol] 37 mg/dL High 6 - 20 mg/dL [facility] Basic Metabolic Panel w/ Ref romulo to MGon 07-20-2022 Anion gap [Moles/Vol] 13 mmol/L 9 - 17 mmol/L [facility] Calcium [Mass/Vol] 8.4 mg/dL Low 8.6 - 10. 4 mg/dL [facility] Chloride [Moles/Vol] 100 mmol/L 98 - 10 7 mmol/L [facility] [employer] CO2 [Moles/Vol] 18 mmol/L Low 20 - 31 mmol/L [facility] Creatinine [Mass/Vol] 1.37 mg/dL High 0.5 - 0.9 mg/dL [facility] GFR 49 mL/min Low 60 - PI NF mL/min [facility] GFR Non- 41 mL/min Low 60 - PINF mL/min [facility] [employer] GFR/1.73 sq M.predicted MDRD (S/P/Bld) [Vol rate/Area] [facility] Comment on above: Average GFR for 50-5 9 years old: 93 mL/min/1.73sq m Chronic Kidney Disease: <60 mL/min/1.73sq m Kidney failure: <15 mL/min/1.73sq m eGFR calculated using average adult body mass. Additional eGFR calculator available at: http://www.Unidym/Audioscribe_crcl_2012.htm Glucose [Mass/Vol] 184 mg/dL High 70 - 99 mg/dL [facility] [employer] Interpretation and review of laboratory results Abnormal [facility] [employer] Potassium [Moles/Vol] 3.8 mmol/L 3.7 - 5.3 mmol/L [facility] [employer] Sodium [Moles/Vol] 131 mmol/L Low 135 - 144 mmol/L [facility] [employer] Urea nitrogen (BldV) [Mass/Vol] 27 mg/dL High 6 - 20 mg/dL [facility] [employer] [facility] Anion gap [Moles/Vol] 13 mmol/L 9 - 17 mmol/L [facility] [employer] Calcium [Mass/Vol] 8.7 mg/dL 8.6 - 10. 4 mg/dL [facility] [employer] Chloride [Moles/Vol] 97 mmol/L Low 98 - 10 7 mmol/L [facility] [employer] CO2 [Moles/Vol] 18 mmol/L Low 20 - 31 mmol/L [facility] Creatinine [Mass/Vol] 1.62 mg/dL High 0.5 - 0.9 mg/dL [facility] [employer] GFR 41 mL/min Low 60 - PI NF mL/min [facility] [employer] GFR Non- 34 mL/min Low 60 - PINF mL/min [facility] [employer] GFR/1.73 sq M.predicted MDRD (S/P/Bld) [Vol rate/Area] [facility] Comment on above: Average GFR for 50-5 9 years old: 93 mL/min/1.73sq m Chronic Kidney Disease: <60 mL/min/1.73sq m Kidney failure: <15 mL/min/1.73sq m eGFR calculated using average adult body mass. Additional eGFR calculator available at: http://www.Unidym/multiple_crcl_2012.htm Glucose [Mass/Vol] 360 mg/dL High 70 - 99 mg/dL [facility] [employer] Potassium [Moles/Vol] 5.1 mmol/L 3.7 - 5.3 mmol/L [facility] Sodium [Moles/Vol] 128 mmol/L Low 135 - 144 mmol/L [facility] Urea nitrogen (BldV) [Mass/Vol] 32 mg/dL High 6 - 20 mg/dL [facility] Anion gap [Moles/Vol] 14 mmol/L 9 - 17 mmol/L [facility] Calcium [Mass/Vol] 8.2 mg/dL Low 8.6 - 10. 4 mg/dL [facility] Chloride [Moles/Vol] 96 mmol/L Low 98 - 10 7 mmol/L [facility] CO2 [Moles/Vol] 17 mmol/L Low 20 - 31 mmol/L [facility] Creatinine [Mass/Vol] 1.68 mg/dL High 0.5 - 0.9 mg/dL [facility] [facility] GFR 39 mL/min Low 60 - PI NF mL/min [facility] GFR Non- 32 mL/min Low 60 - PINF mL/min [facility] GFR/1.73 sq M.predicted MDRD (S/P/Bld) [Vol rate/Area] [facility] Comment on above: Average GFR for 50-5 9 years old: 93 mL/min/1.73sq m Chronic Kidney Disease: <60 mL/min/1.73sq m Kidney failure: <15 mL/min/1.73sq m eGFR calculated using average adult body mass. Additional eGFR calculator available at: http://www.Glanse.City Sports/multiple_crcl_2011.htm Interpretation and review of laboratory results Abnormal [facility] Potassium [Moles/Vol] 4.4 mmol/L 3.7 - 5.3 mmol/L [facility] Sodium [Moles/Vol] 127 mmol/L Low 135 - 144 mmol/L [facility] Urea nitrogen (BldV) [Mass/Vol] 33 mg/dL High 6 - 20 mg/dL [facility] Anion gap [Moles/Vol] 15 mmol/L 9 - 17 mmol/L [facility] Calcium [Mass/Vol] 8.5 mg/dL Low 8.6 - 10. 4 mg/dL [facility] Chloride [Moles/Vol] 95 mmol/L Low 98 - 10 7 mmol/L [facility] CO2 [Moles/Vol] 18 mmol/L Low 20 - 31 mmol/L [facility] Creatinine [Mass/Vol] 2.11 mg/dL High 0.5 - 0.9 mg/dL [facility] GFR 30 mL/min Low 60 - PI NF mL/min [facility] GFR Non- 25 mL/min Low 60 - PINF mL/min [facility] GFR/1.73 sq M.predicted MDRD (S/P/Bld) [Vol rate/Area] [facility] Comment on above: Average GFR for 50-5 9 years old: 93 mL/min/1.73sq m Chronic Kidney Disease: <60 mL/min/1.73sq m Kidney failure: <15 mL/min/1.73sq m eGFR calculated using average adult body mass. Additional eGFR calculator available at: http://www.Unidym/multiple_crcl_2012.htm Glucose [Mass/Vol] 416 mg/dL Critically high 70 - 99 mg/d L [facility] Interpretation and review of laboratory results Abnormal [facility] Potassium [Moles/Vol] 5.0 mmol/L 3.7 - 5.3 mmol/L [facility] Sodium [Moles/Vol] 128 mmol/L Low 135 - 144 mmol/L [facility] Urea nitrogen (BldV) [Mass/Vol] 38 mg/dL High 6 - 20 mg/dL [facility] Basic Metabolic Profon 07-20 Glucose [Mass/Vol] 439 mg/dL Critically high 70-99 [facility] Comment on above: Performed By: #### A NAX, IFX, PHEP, FKLLC, PE #### [facility] [place], [place] [id number] Medical Office Asst: Bala Skelton MD (cont.) [facility] Comment on above: Result Comment: Aver age GFR for 50-59 years old: 93 mL/min/1.73sq m Chronic Kidney Disease: <60 mL/min/1.73sq m Kidney failure: <15 mL/min/1.73sq m eGFR calculated using average adult body mass. Additional eGFR calculator available at: http://www.Glanse.City Sports/multiple_crcl_2012.htm Performed By: #### A NAX, IFX, PHEP, FKLLC, PE #### [facility] [address] [place] [address] Medical Office Asst: Bala Skelton MD Anion gap [Moles/Vol] 16 mmol/L Normal 9-17 [facility] Comment on above: Performed By: #### A NAX, IFX, PHEP, FKLLC, PE #### [facility] [address] [place] [address] Medical Office Asst: Bala Skelton MD Calcium [Mass/Vol] 8.2 mg/dL Low 8.6-10.4 [facility] Comment on above: Performed By: #### A NAX, IFX, PHEP, FKLLC, PE #### [employer] [address] [place] [address] Medical Office Asst: Bala Skelton MD Chloride [Moles/Vol] 95 mmol/L Low 98-[address] [facility] Comment on above: Performed By: #### A NAX, IFX, PHEP, FKLLC, PE #### [employer] [address] [place] [address] Medical Office Asst: Bala Skelton MD CO2 [Moles/Vol] 17 mmol/L Low 20-31 [facility] Comment on above: Performed By: #### A NAX, IFX, PHEP, FKLLC, PE #### [employer] [address] [place] [address] [phone] Medical Office Asst: Bala Skelton MD Creatinine [Mass/Vol] 2.35 mg/dL High 0.50-0.90 [facility] Comment on above: Performed By: #### A NAX, IFX, PHEP, FKLLC, PE #### [facility] [address] [place] [address] Medical Office Asst: Bala Skelton MD GFR, Amer 27 mL/min Low >60 [facility] Comment on above: Performed By: #### A NAX, IFX, PHEP, FKLLC, PE #### [facility] [address] [place] [address] Medical Office Asst: Bala Skelton MD GFR,non Amer 22 mL/min Low >[address] [facility] Comment on above: Performed By: #### A NAX, IFX, PHEP, FKLLC, PE #### [facility] [address] [place] [address] Medical Office Asst: Bala Skelton MD Potassium [Moles/Vol] 5.2 mmol/L Normal 3.7-5.3 [facility] Comment on above: Performed By: #### A NAX, IFX, PHEP, FKLLC, PE #### [facility] [employer] [address] [place] [address] Medical Office Asst: Bala Skelton MD Sodium [Moles/Vol] 128 mmol/L Low 135-144 [facility] Comment on above: Performed By: #### A NAX, IFX, PHEP, FKLLC, PE #### [facility] [address] [place] [address] Medical Office Asst: Bala Skelton MD Urea nitrogen [Mass/Vol] 37 mg/dL High 6-20 [facility] Comment on above: Performed By: #### A NAX, IFX, PHEP, FKLLC, PE #### [facility] [address] [place] [address] [phone] Medical Office Asst: Bala Skelton MD C3on 07-20-2022 C3 209 mg/dL High 90-180 [facility] Comment on above: Performed By: #### A NAX, IFX, PHEP, FKLLC, PE #### [facility] [address] [place], [place] [phone] Medical Office Asst: Bala Skelton MD C3 Complementon 07-20-2022 Complement C3 209 mg/dL High 90 - 180 mg/dL [facility] C4on 07-20-2022 C4 41 mg/dL High 10-40 [facility] Comment on above: Performed By: #### A NAX, IFX, PHEP, FKLLC, PE #### [facility] [address] [place], [place] [phone] Medical Office Asst: Bala Skelton MD C4 Complementon 07-20-2022 Complement C4 41 mg/dL High 10 - 40 mg/dL [facility] CBC with Auto Differentialon 07-20-2022 Absolute Eos # 0.00 [facility] Absolute Immature Granulocyte 0.07 [facility] Absolute Lymph # 0.46 Low [facility] Absolute Breath[place] # 0.33 [facility] Basophils (Bld) [#/Vol] 0.00 10*3/uL [facility] Basophils/100 WBC (Bld) 0 % 0 - 2 % [facility] Eosinophils/100 WBC (Bld) 0 % Low 1 - 4 % [facility] Hematocrit (Bld) [Volume fraction] 33.3 % Low 36.3 - 47.1 % [facility] Hemoglobin (Bld) [Mass/Vol] 11.0 g/dL Low 11.9 - 15.1 g/dL [facility] Immature granulocytes/100 WBC (Bld) 1 % High 0 [facility] Interpretation and review of laboratory results Abnormal [facility] Lymphocytes/100 WBC (Bld) 7 % Low 24 - 44 % [facility] MCH (RBC) [Entitic mass] 28.6 pg 25.2 - 33.5 pg [facility] MCHC (RBC) [Mass/Vol] 33.0 g/dL 28.4 - 34.8 g/dL [facility] MCV (RBC) [Entitic vol] 86.7 fL 82.6 - 102.9 fL [facility] Monocytes/100 WBC (Bld) 5 % 1 - 7 % [facility] Morphology Bran (Bld) [Interp] Normal [facility] NRBC Automated 0.0 0.0 per 100 WBC [facility] Platelet distribution width (Bld) [Ratio] 13.8 % 11.8 - 14.4 % [facility] Platelets (Bld) [#/Vol] See Reflexed IPF Result [facility] RBC (Bld) [#/Vol] 3.84 10*6/uL Low 3.95 - 5.1 1 m/uL [facility] Segmented neutrophils/100 WBC (Bld) 87 % High 36 - 66 % [facility] Segs Absolute 5.74 [facility] WBC (Bld) [#/Vol] 6.6 10*3/uL [facility] Absolute Eos # 0.00 [facility] Absolute Immature Granulocyte 0.10 [facility] Absolute Lymph # 0.31 Low [facility] Absolute Breathitt # 0.41 [facility] Basophils (Bld) [#/Vol] 0.00 10*3/uL [facility] Basophils/100 WBC (Bld) 0 % 0 - 2 % [facility] Eosinophils/100 WBC (Bld) 0 % Low 1 - 4 % [facility] Hematocrit (Bld) [Volume fraction] 32.4 % Low 36.3 - 47.1 % [facility] Hemoglobin (Bld) [Mass/Vol] 11.0 g/dL Low 11.9 - 15.1 g/dL [facility] Immature granulocytes/100 WBC (Bld) 1 % High 0 [facility] Interpretation and review of laboratory results Abnormal [facility] Lymphocytes/100 WBC (Bld) 3 % Low 24 - 44 % [facility] MCH (RBC) [Entitic mass] 29.4 pg 25.2 - 33.5 pg [facility] MCHC (RBC) [Mass/Vol] 34.0 g/dL 28.4 - 34.8 g/dL [facility] MCV (RBC) [Entitic vol] 86.6 fL 82.6 - 102.9 fL [facility] Monocytes/100 WBC (Bld) 4 % 1 - 7 % [facility] Morphology Bran (Bld) [Interp] Normal [facility] NRBC Automated 0.0 0.0 per 100 WBC [facility] Platelet distribution width (Bld) [Ratio] 13.6 % 11.8 - 14.4 % [facility] Platelet mean volume (Bld) [Entitic vol] 10.4 fL 8.1 - 13.5 fL [facility] Platelets (Bld) [#/Vol] 252 10*3/uL [facility] RBC (Bld) [#/Vol] 3.74 10*6/uL Low 3.95 - 5.1 1 m/uL [facility] Segmented neutrophils/100 WBC (Bld) 92 % High 36 - 66 % [facility] Segs Absolute 9.38 High [facility] WBC (Bld) [#/Vol] 10.2 10*3/uL [facility] Absolute Eos # 0.[address] [facility] Absolute Immature Granulocyte 0.12 [facility] Absolute Lymph # 0.[address] [facility] Absolute Breath[place] # 0.[address] [facility] Basophils (Bld) [#/Vol] 0.00 10*3/uL [facility] Basophils/100 WBC (Bld) 0 % 0 - 2 % [facility] Eosinophils/100 WBC (Bld) 1 % 1 - 4 % [facility] Hematocrit (Bld) [Volume fraction] 31.3 % Low 36.3 - 47.1 % [facility] Hemoglobin (Bld) [Mass/Vol] 10.6 g/dL Low 11.9 - 15.1 g/dL [facility] Immature granulocytes/100 WBC (Bld) 1 % High 0 [facility] Interpretation and review of laboratory results Abnormal [facility] Lymphocytes/100 WBC (Bld) 4 % Low 24 - 44 % [facility] MCH (RBC) [Entitic mass] 29.3 pg 25.2 - 33.5 pg [facility] MCHC (RBC) [Mass/Vol] 33.9 g/dL 28.4 - 34.8 g/dL [facility] MCV (RBC) [Entitic vol] 86.5 fL 82.6 - 102.9 fL [facility] Monocytes/100 WBC (Bld) 0 % Low 1 - 7 % [facility] Morphology Bran (Bld) [Interp] Normal [facility] NRBC Automated 0.0 0.0 per 100 WBC [facility] Platelet distribution width (Bld) [Ratio] 13.5 % 11.8 - 14.4 % [facility] Platelet mean volume (Bld) [Entitic vol] 10.2 fL 8.1 - 13.5 fL [facility] Platelets (Bld) [#/Vol] 280 10*3/uL [facility] RBC (Bld) [#/Vol] 3.62 10*6/uL Low 3.95 - 5.1 1 m/uL [facility] Segmented neutrophils/100 WBC (Bld) 94 % High 36 - 66 % [facility] Segs Absolute 11.57 High [facility] WBC (Bld) [#/Vol] 12.3 10*3/uL High [facility] CBC with Diffon 07-20-2022 Abs. Basophil 0.00 k/uL Normal 0.0-0.2 [facility] Comment on above: Performed By: #### A NAX, IFX, PHEP, FKLLC, PE #### [facility] [employer] [facility] [place] [address] Medical Office Asst: Bala Skelton MD Abs.Imm.Granulocyte 0.07 k/uL Normal 0.00-0.30 [facility] Comment on above: Performed By: #### A NAX, IFX, PHEP, FKLLC, PE #### [address] [address] Medical Office Asst: Bala Skelton MD Abs.Neutrophil (Seg) 5.74 k/uL Normal 1.8-7.[address] [facility] Comment on above: Performed By: #### A NAX, IFX, PHEP, FKLLC, PE #### [address] [address] Medical Office Asst: Bala Skelton MD Basophils/100 WBC (Bld) 0 % Normal 0-2 [facility] Comment on above: Performed By: #### A NAX, IFX, PHEP, FKLLC, PE #### [place] [address] Medical Office Asst: Bala Skelton MD Eosinophils (Bld) [#/Vol] 0.00 10*3/uL Normal 0.0-0.4 [facility] Comment on above: Performed By: #### A NAX, IFX, PHEP, FKLLC, PE #### [address] [address] Medical Office Asst: Bala Skelton MD Eosinophils/100 WBC (Bld) 0 % Low 1-4 [facility] Comment on above: Performed By: #### A NAX, IFX, PHEP, FKLLC, PE #### [address] [address] Medical Office Asst: Bala Skelton MD Immature granulocytes/100 WBC (Bld) 1 % High 0 [facility] Comment on above: Performed By: #### A NAX, IFX, PHEP, FKLLC, PE #### [address] [address] Medical Office Asst: Bala Skelton MD Lymphocytes (Bld) [#/Vol] 0.46 10*3/uL Low 1.0-4.8 [facility] Comment on above: Performed By: #### A NAX, IFX, PHEP, FKLLC, PE #### [address] [address] Medical Office Asst: Bala Skelton MD Lymphocytes/100 WBC (Bld) 7 % Low 24-44 [facility] Comment on above: Performed By: #### A NAX, IFX, PHEP, FKLLC, PE #### [address] [address] Medical Office Asst: Bala Skelton MD Monocytes (Bld) [#/Vol] 0.33 10*3/uL Normal 0.1-0.8 [facility] Comment on above: Performed By: #### A NAX, IFX, PHEP, FKLLC, PE #### [address] [address] Medical Office Asst: Bala Skelton MD Monocytes/100 WBC (Bld) 5 % Normal 1-7 [facility] Comment on above: Performed By: #### A NAX, IFX, PHEP, FKLLC, PE #### [address] [address] Medical Office Asst: Bala Skelton MD Morphology Bran (Bld) [Interp] Normal Normal [facility] Comment on above: Performed By: #### A NAX, IFX, PHEP, FKLLC, PE #### [address] [address] Medical Office Asst: Bala Skelton MD Neutrophil (Seg) 87 % High 36-66 [facility] Comment on above: Performed By: #### A NAX, IFX, PHEP, FKLLC, PE #### [address] [address] Medical Office Asst: Bala Skelton MD Erythrocyte distribution width (RBC) [Ratio] 13.8 % Normal 11.8-14.4 [facility] Comment on above: Performed By: #### A NAX, IFX, PHEP, FKLLC, PE #### [address] [address] Medical Office Asst: Bala Skelton MD Hematocrit (Bld) [Volume fraction] 33.3 % Low 36.3-47.1 [facility] Comment on above: Performed By: #### A NAX, IFX, PHEP, FKLLC, PE #### [address] [address] Medical Office Asst: Bala Skelton MD Hemoglobin (Bld) [Mass/Vol] 11.0 g/dL Low 11.9-15.1 [facility] Comment on above: Performed By: #### A NAX, IFX, PHEP, FKLLC, PE #### [address] [address] Medical Office Asst: Bala Skelton MD MCH (RBC) [Entitic mass] 28.6 pg Normal 25.2-33.5 [facility] Comment on above: Performed By: #### A NAX, IFX, PHEP, FKLLC, PE #### [address] [address] Medical Office Asst: Bala Skelton MD MCHC (RBC) [Mass/Vol] 33.0 g/dL Normal 28.4-34.8 [facility] Comment on above: Performed By: #### A NAX, IFX, PHEP, FKLLC, PE #### [address] [address] Medical Office Asst: Bala Skelton MD MCV (RBC) [Entitic vol] 86.7 fL Normal 82.6-102.9 [facility] Comment on above: Performed By: #### A NAX, IFX, PHEP, FKLLC, PE #### [address] [address] Medical Office Asst: Bala Skelton MD NRBC Automated 0.0 per 100 WBC Normal 0.0 [facility] Comment on above: Performed By: #### A NAX, IFX, PHEP, FKLLC, PE #### [address] [address] Medical Office Asst: Bala Skelton MD Platelet Count See Reflexed IPF Result Normal 138-453 [facility] Comment on above: Performed By: #### A NAX, IFX, PHEP, FKLLC, PE #### [address] [address] Medical Office Asst: Bala Skelton MD RBC (Bld) [#/Vol] 3.84 10*6/uL Low 3.95-5.11 [facility] Comment on above: Performed By: #### A NAX, IFX, PHEP, FKLLC, PE #### [address] [address] Medical Office Asst: Bala Skelton MD WBC (Bld) [#/Vol] 6.6 10*3/uL Normal 3.5-11.3 [facility] Comment on above: Performed By: #### A NAX, IFX, PHEP, FKLLC, PE #### [address] [address] Medical Office Asst: Bala Skelton MD Abs. Basophil 0.00 k/uL Normal 0.0-0.2 [facility] Comment on above: Performed By: #### A NAX, IFX, PHEP, FKLLC, PE #### [address] [address] Medical Office Asst: Bala Skelton MD Abs.Imm.Granulocyte 0.10 k/uL Normal 0.00-0.30 [facility] Comment on above: Performed By: #### A NAX, IFX, PHEP, FKLLC, PE #### [place] [address] Medical Office Asst: Bala Skelton MD Abs.Neutrophil (Seg) 9.38 k/uL High 1.8-7.[address] [facility] Comment on above: Performed By: #### A NAX, IFX, PHEP, FKLLC, PE #### [place] [address] Medical Office Asst: Bala Skelton MD Basophils/100 WBC (Bld) 0 % Normal 0-2 [facility] Comment on above: Performed By: #### A NAX, IFX, PHEP, FKLLC, PE #### [place] [address] Medical Office Asst: Bala Skelton MD Eosinophils (Bld) [#/Vol] 0.00 10*3/uL Normal 0.0-0.4 [facility] Comment on above: Performed By: #### A NAX, IFX, PHEP, FKLLC, PE #### [address] [address] Medical Office Asst: Bala Skelton MD Eosinophils/100 WBC (Bld) 0 % Low 1-4 [facility] Comment on above: Performed By: #### A NAX, IFX, PHEP, FKLLC, PE #### [address] [address] Medical Office Asst: Bala Skelton MD Immature granulocytes/100 WBC (Bld) 1 % High 0 [facility] Comment on above: Performed By: #### A NAX, IFX, PHEP, FKLLC, PE #### [address] [address] Medical Office Asst: Bala Skelton MD Lymphocytes (Bld) [#/Vol] 0.31 10*3/uL Low 1.0-4.8 [facility] Comment on above: Performed By: #### A NAX, IFX, PHEP, FKLLC, PE #### [address] [address] Medical Office Asst: Bala Skelton MD Lymphocytes/100 WBC (Bld) 3 % Low 24-44 [facility] Comment on above: Performed By: #### A NAX, IFX, PHEP, FKLLC, PE #### [address] [address] Medical Office Asst: Bala Skelton MD Monocytes (Bld) [#/Vol] 0.41 10*3/uL Normal 0.1-0.8 [facility] Comment on above: Performed By: #### A NAX, IFX, PHEP, FKLLC, PE #### [address] [address] Medical Office Asst: Bala Skelton MD Monocytes/100 WBC (Bld) 4 % Normal 1-7 [facility] Comment on above: Performed By: #### A NAX, IFX, PHEP, FKLLC, PE #### [address] [address] Medical Office Asst: Bala Skelton MD Morphology Bran (Bld) [Interp] Normal Normal [facility] Comment on above: Performed By: #### A NAX, IFX, PHEP, FKLLC, PE #### [address] [address] Medical Office Asst: Bala Skelton MD Neutrophil (Seg) 92 % High 36-66 [facility] Comment on above: Performed By: #### A NAX, IFX, PHEP, FKLLC, PE #### [facility] [employer] [address] [place] [address] Medical Office Asst: Bala Skelton MD Erythrocyte distribution width (RBC) [Ratio] 13.6 % Normal 11.8-14.4 [facility] Comment on above: Performed By: #### A NAX, IFX, PHEP, FKLLC, PE #### [facility] [employer] [address] [place] [address] Medical Office Asst: Bala Skelton MD Hematocrit (Bld) [Volume fraction] 32.4 % Low 36.3-47.1 [facility] Comment on above: Performed By: #### A NAX, IFX, PHEP, FKLLC, PE #### [facility] [employer] [address] [place] [address] Medical Office Asst: Bala Skelton MD Hemoglobin (Bld) [Mass/Vol] 11.0 g/dL Low 11.9-15.1 [facility] Comment on above: Performed By: #### A NAX, IFX, PHEP, FKLLC, PE #### [facility] [employer] [address] [place] [address] Medical Office Asst: Bala Skelton MD MCH (RBC) [Entitic mass] 29.4 pg Normal 25.2-33.5 [facility] Comment on above: Performed By: #### A NAX, IFX, PHEP, FKLLC, PE #### [facility] [employer] [address] [place] [address] Medical Office Asst: Bala Skelton MD MCHC (RBC) [Mass/Vol] 34.0 g/dL Normal 28.4-34.8 [facility] Comment on above: Performed By: #### A NAX, IFX, PHEP, FKLLC, PE #### [address] [address] Medical Office Asst: Bala Skelton MD MCV (RBC) [Entitic vol] 86.6 fL Normal 82.6-102.9 [facility] Comment on above: Performed By: #### A NAX, IFX, PHEP, FKLLC, PE #### [address] [address] Medical Office Asst: Bala Skelton MD NRBC Automated 0.0 per 100 WBC Normal 0.0 [facility] Comment on above: Performed By: #### A NAX, IFX, PHEP, FKLLC, PE #### [address] [address] Medical Office Asst: Bala Skelton MD Platelet mean volume (Bld) [Entitic vol] 10.4 fL Normal 8.1-13.5 [facility] Comment on above: Performed By: #### A NAX, IFX, PHEP, FKLLC, PE #### [address] [address] Medical Office Asst: Bala Skelton MD Platelets (Bld) [#/Vol] 252 10*3/uL Normal 138-453 [facility] Comment on above: Performed By: #### A NAX, IFX, PHEP, FKLLC, PE #### [address] [address] Medical Office Asst: Bala Skelton MD RBC (Bld) [#/Vol] 3.74 10*6/uL Low 3.95-5.11 [facility] Comment on above: Performed By: #### A NAX, IFX, PHEP, FKLLC, PE #### [address] [address] Medical Office Asst: Bala Skelton MD WBC (Bld) [#/Vol] 10.2 10*3/uL Normal 3.5-11.3 [facility] Comment on above: Performed By: #### A NAX, IFX, PHEP, FKLLC, PE #### [address] [address] Medical Office Asst: Bala Skelton MD Abs. Basophil 0.00 k/uL Normal 0.0-0.2 [facility] Comment on above: Performed By: #### A NAX, IFX, PHEP, FKLLC, PE #### [place] [address] Medical Office Asst: Bala Skelton MD Abs.Imm.Granulocyte 0.12 k/uL Normal 0.00-0.30 [facility] Comment on above: Performed By: #### A NAX, IFX, PHEP, FKLLC, PE #### [place] [address] Medical Office Asst: Bala Skelton MD Abs.Neutrophil (Seg) 11.57 k/uL High 1.8-7.[address] [facility] Comment on above: Performed By: #### A NAX, IFX, PHEP, FKLLC, PE #### [place] [address] Medical Office Asst: Bala Skelton MD Basophils/100 WBC (Bld) 0 % Normal 0-2 [facility] Comment on above: Performed By: #### A NAX, IFX, PHEP, FKLLC, PE #### [address] [address] Medical Office Asst: Bala Skelton MD Eosinophils (Bld) [#/Vol] 0.12 10*3/uL Normal 0.0-0.4 [facility] Comment on above: Performed By: #### A NAX, IFX, PHEP, FKLLC, PE #### [address] [address] Medical Office Asst: Bala Skelton MD Eosinophils/100 WBC (Bld) 1 % Normal 1-4 [facility] Comment on above: Performed By: #### A NAX, IFX, PHEP, FKLLC, PE #### [address] [address] Medical Office Asst: Bala Skelton MD Immature granulocytes/100 WBC (Bld) 1 % High 0 [facility] Comment on above: Performed By: #### A NAX, IFX, PHEP, FKLLC, PE #### [address] [address] Medical Office Asst: Bala Skelton MD Lymphocytes (Bld) [#/Vol] 0.49 10*3/uL Low 1.0-4.8 [facility] Comment on above: Performed By: #### A NAX, IFX, PHEP, FKLLC, PE #### [address] [address] Medical Office Asst: Bala Skelton MD Lymphocytes/100 WBC (Bld) 4 % Low 24-44 [facility] Comment on above: Performed By: #### A NAX, IFX, PHEP, FKLLC, PE #### [address] [address] Medical Office Asst: Bala Skelton MD Monocytes (Bld) [#/Vol] 0.00 10*3/uL Low 0.1-0.8 [facility] Comment on above: Performed By: #### A NAX, IFX, PHEP, FKLLC, PE #### [address] [address] Medical Office Asst: Bala Skelton MD Monocytes/100 WBC (Bld) 0 % Low 1-7 [facility] Comment on above: Performed By: #### A NAX, IFX, PHEP, FKLLC, PE #### [address] [address] Medical Office Asst: Bala Skelton MD Morphology Bran (Bld) [Interp] Normal Normal [facility] Comment on above: Performed By: #### A NAX, IFX, PHEP, FKLLC, PE #### [address] [address] Medical Office Asst: Bala Skelton MD Neutrophil (Seg) 94 % High 36-66 [facility] Comment on above: Performed By: #### A NAX, IFX, PHEP, FKLLC, PE #### [address] [address] Medical Office Asst: Bala Skelton MD Erythrocyte distribution width (RBC) [Ratio] 13.5 % Normal 11.8-14.4 [facility] Comment on above: Performed By: #### A NAX, IFX, PHEP, FKLLC, PE #### [address] [address] Medical Office Asst: Bala Skelton MD Hematocrit (Bld) [Volume fraction] 31.3 % Low 36.3-47.1 [facility] Comment on above: Performed By: #### A NAX, IFX, PHEP, FKLLC, PE #### [address] [address] Medical Office Asst: Bala Skelton MD Hemoglobin (Bld) [Mass/Vol] 10.6 g/dL Low 11.9-15.1 [facility] Comment on above: Performed By: #### A NAX, IFX, PHEP, FKLLC, PE #### [address] [address] Medical Office Asst: Bala Skelton MD MCH (RBC) [Entitic mass] 29.3 pg Normal 25.2-33.5 [facility] Comment on above: Performed By: #### A NAX, IFX, PHEP, FKLLC, PE #### [address] [address] Medical Office Asst: Bala Skelton MD MCHC (RBC) [Mass/Vol] 33.9 g/dL Normal 28.4-34.8 [facility] Comment on above: Performed By: #### A NAX, IFX, PHEP, FKLLC, PE #### [place] [address] Medical Office Asst: Bala Skelton MD MCV (RBC) [Entitic vol] 86.5 fL Normal 82.6-102.9 [facility] Comment on above: Performed By: #### A NAX, IFX, PHEP, FKLLC, PE #### [place] [address] Medical Office Asst: Bala Skelton MD NRBC Automated 0.0 per 100 WBC Normal 0.0 [facility] Comment on above: Performed By: #### A NAX, IFX, PHEP, FKLLC, PE #### [place] [address] Medical Office Asst: Bala Skelton MD Platelet mean volume (Bld) [Entitic vol] 10.2 fL Normal 8.1-13.5 [facility] Comment on above: Performed By: #### A NAX, IFX, PHEP, FKLLC, PE #### [address] [address] Medical Office Asst: Bala Skelton MD Platelets (Bld) [#/Vol] 280 10*3/uL Normal 138-453 [facility] Comment on above: Performed By: #### A NAX, IFX, PHEP, FKLLC, PE #### [facility] [address] [place], [place] [phone] Medical Office Asst: Bala Skelton MD RBC (Bld) [#/Vol] 3.62 10*6/uL Low 3.95-5.11 [facility] Comment on above: Performed By: #### A NAX, IFX, PHEP, FKLLC, PE #### [facility] [address], [place] [phone] Medical Office Asst: Bala Skelton MD WBC (Bld) [#/Vol] 12.3 10*3/uL High 3.5-11.3 [facility] Comment on above: Performed By: #### A NAX, IFX, PHEP, FKLLC, PE #### [facility] [address] [place], [place] [phone] Medical Office Asst: Bala Skelton MD CREATININE, RANDOM URINEon 0 07-20-2022 Creatinine, Ur 67.5 mg/dL 28 - 217 mg/dL [facility] CULTURE URINEon 07-20-2022 CULTURE URINE Isolate 1 [...] F Trimethoprim/Sulfameth oxazole <=20 S F Normal [facility] Comment on above: Performed By: #### U MICRO, ERUR #### [facility] [address] [place] [address] Dr. Delmer Rea Chloride, Random Urineon Chloride, Ur 50 mmol/L [facility] Comment on above: No normal range esta blished. Chloride,Random Uron 07-20- 022 Chloride [Moles/Vol] 50 mmol/L Normal [facility] Comment on above: Result Comment: No n ormal range established. Performed By: #### A NAX, IFX, PHEP, FKLLC, PE #### [facility] [address], [place] [phone] Medical Office Asst: Bala Skelton MD Creatinine, Random Urineon 0 07-20-2022 Creatinine, Ur 76.5 mg/dL 28 - 217 mg/dL [facility] Creat[facility],Random Uron 07-20 Creatinine [Mass/Vol] 67.5 mg/dL Normal 28.0-217.0 [facility] Comment on above: Performed By: #### B C #### [facility] [address] [place] [address] [phone] Medical Office Asst: Bala Skelton MD Creatinine [Mass/Vol] 76.5 mg/dL Normal 28.0-217.0 [facility] Comment on above: Performed By: #### A NAX, IFX, PHEP, FKLLC, PE #### [facility], [place] [phone] Medical Office Asst: Bala Skelton MD EKG 12 LeadOrdered By: Cheryl Domínguez on 07-20-2022 Atrial Rate 105 BPM [facility] Work Phone: P Mcneil 8 degrees [facility] Work Phone: P-R Interval 136 ms [employer] Phone: Q-T Interval 344 ms [employer] Phone: QRS Duration 84 ms [employer] Phone: QTc Calculation (Bazett) 454 ms [facility] Work Phone: R Mcneil -15 degrees [facility] Work Phone: T Mcneil 13 degrees JAYDEN GARCÍA [employer] Phone: Ventricular Rate 105 BPM JAYDEN ONOFRE [employer] Work Phone: JAYDEN GARCÍA [employer] Phone: EKG 12 Leadon 07-20-2022 Sinus tachycardia Septal infarct (cited on or before 20-JUL-2022) Abnormal ECG When compared with ECG of 20-JUL-2022 05:40, No significant change was found [facility] ST[facility] Julien Jarrett MD - 07/20/2022 Sinus tachycardia Septal infarct (cited on or before 20-JUL-2022) Abnormal ECG When compared with ECG of 20-JUL-2022 05:40, No significant change was found JAYDEN [employer] Phone: Free [place] + Lambdaon 2021 Free [place] Lt Chains 2.91 mg/dL High 0.37-1.[address] [facility] Comment on above: Performed By: #### A NAX, IFX, PHEP, FKLLC, PE #### [facility] [address] [place] [address] Medical Office Asst: Bala Skelton MD Free [place]/Lambda Rat 1.67 High 0.26-1.65 [facility] Comment on above: Performed By: #### A NAX, IFX, PHEP, FKLLC, PE #### [facility] [address] [place] [address] [phone] Medical Office Asst: Bala Skelton MD Free Lambda Lt Chains 1.74 mg/dL Normal 0.57-2.63 [facility] Comment on above: Performed By: #### A NAX, IFX, PHEP, FKLLC, PE #### [facility] [address] [place] [address] Medical Office Asst: Bala Skelton MD Immature Platelet Fractionon 07-20-2022 Platelet, Fluorescence Platelet clumps present, count appears adequate. [facility] [place]/Lambda Quantitative Fr ee Light Chains, Serumon 07-20-2022 Free [place]/Lambda Ratio 1.67 High 0.26 - 1.65 [facility] Interpretation and review of laboratory results Abnormal [facility] [place] Free Light Chains QNT 2.91 mg/dL High 0.37 - 1.94 mg/dL [facility] Lambda Free Light Chains QNT 1.74 mg/dL 0.57 - 2.63 mg/dL [facility] Lactate, Sepsison 07-20-2022 Lactic Acid,Sep Wbld 3.8 mmol/L High 0.5-1.[address] [facility] Comment on above: Performed By: #### B C #### [facility] [address] [place] [address] [phone] Medical Office Asst: Bala Skelton MD Interpretation and review of laboratory results Abnormal [facility] Lactic Acid, Sepsis, Whole Blood 3.8 mmol/L High 0.5 - 1.9 mmol/L [facility] Lactic Acidon 07-20-2022 Lactic Acid,Whole Bl 2.0 mmol/L Normal 0.7-2.[address] [facility] Comment on above: Performed By: #### B C #### [facility] [address] [place] [address] [phone] Medical Office Asst: Bala Skelton MD Lactic Acid, Whole Blood 2.0 mmol/L 0.7 - 2.1 mmol/L [facility] No Panel Informationon 07-20 [facility] Interpretation and review of laboratory results Abnormal [facility] PLT, Immature Fract.on 07-20 Platelet, Fluoresc. Platelet clumps present, count appears adequate. Normal 138-453 [facility] Comment on above: Performed By: #### A NAX, IFX, PHEP, FKLLC, PE #### [facility] [place] [address] Medical Office Asst: Bala Skelton MD POC Glucose Fingerstickon Glucose [Mass/Vol] 145 mg/dL High 65 - 105 mg/dL [facility] Interpretation and review of laboratory results Abnormal [facility] Glucose [Mass/Vol] 231 mg/dL High 65 - 105 mg/dL [facility] Interpretation and review of laboratory results Abnormal [facility] Glucose [Mass/Vol] 393 mg/dL High 65 - 105 mg/dL [facility] Interpretation and review of laboratory results Abnormal [facility] Glucose [Mass/Vol] 405 mg/dL Critically high 65 - 1 05 mg/dL [facility] Comment on above: Critical Noted Interpretation and review of laboratory results Abnormal [facility] Glucose [Mass/Vol] 375 mg/dL High 65 - 105 mg/dL [facility] Interpretation and review of laboratory results Abnormal [facility] Glucose [Mass/Vol] 415 mg/dL Critically high 65 - 1 05 mg/dL [facility] Interpretation and review of laboratory results Abnormal [facility] Procalcitoninon 07-20-2022 Procalcitonin 48.54 ng/mL High <0.09 [facility] Comment on above: Result Comment: Suspected [...] entered into the Change in Procalcitonin Calculator (www.zjztwy-nwe-byxrnbwgfu.com) to determine the patient's Mortality Risk Prognosis In healthy neonates, plasma Procalcitonin (PCT) concentrations increase gradually after , reaching peak values at about 24 hours of age then decrease to normal values below 0.5 ng/mL by 48-72 hours of age. Performed By: #### A NAX, IFX, PHEP, FKLLC, PE #### [facility] [place] [address] Medical Office Asst: Bala Skelton MD Interpretation and review of laboratory results Abnormal [facility] Procalcitonin 48.54 ng/mL High NINF - 0.09 ng/mL [facility] Comment on above: Suspected Sepsis: <0.50 [...] entered into the Change in Procalcitonin Calculator (www.dicqxd-oxg-npavilyimz.[employer]) to determine the patient's Mortality Risk Prognosis In healthy neonates, plasma Procalcitonin (PCT) concentrations increase gradually after , reaching peak values at about 24 hours of age then decrease to normal values below 0.5 ng/mL by 48-72 hours of age. [facility] Prot. Electroph, Blon 2021 Protein [Mass/Vol] 6.3 g/dL Low 6.4-8.3 [facility] Comment on above: Performed By: #### A NAX, IFX, PHEP, FKLLC, PE #### [facility] [address] [place] [address] Medical Office Asst: Bala Skelton MD Prot. Electrophoresis, Uron 07-20-2022 Type of Specimen .URINE Normal [facility] Comment on above: Performed By: #### A NAX, IFX, PHEP, FKLLC, PE #### [facility] [address] [place] [phone] Medical Office Asst: Bala Skelton MD Protein / creatinine ratio, urineon 07-20-2022 Creatinine, Ur 75.7 mg/dL 28 - 217 mg/dL [facility] Interpretation and review of laboratory results Abnormal [facility] Protein (U) [Mass/Vol] 145 mg/dL [facility] Comment on above: No normal range esta blished. Urine Total Protein Creatinine Ratio 1.92 High 0 - 0.2 [facility] Protein, urine, randomon Protein (U) [Mass/Vol] 144 mg/dL [facility] Comment on above: No normal range esta blished. Protein,Tot,Reinholds Uron 2021 Creatinine [Mass/Vol] 75.7 mg/dL Normal 28.0-217.0 [facility] Comment on above: Performed By: #### A NAX, IFX, PHEP, FKLLC, PE #### [facility] [address] [place] [address] Medical Office Asst: Bala Skelton MD Tot Prot. Conc. 145 mg/dL Normal [facility] Comment on above: Result Comment: No n ormal range established. Performed By: #### A NAX, IFX, PHEP, FKLLC, PE #### [facility] [address] [place] [address] Medical Office Asst: Bala Skelton MD Tot Prot. Conc. 144 mg/dL Normal [facility] Comment on above: Result Comment: No n ormal range established. Performed By: #### A NAX, IFX, PHEP, FKLLC, PE #### [facility] [address] [place] [address] Medical Office Asst: Bala Skelton MD TP/Cre Ratio 1.92 High 0.00-0.20 [facility] Comment on above: Performed By: #### A NAX, IFX, PHEP, FKLLC, PE #### [facility] [address] [place] [address] [phone] Medical Office Asst: Bala Skelton MD SODIUM, URINE, RANDOMon 07-07 Sodium (U) [Moles/Vol] mmol/L mmol/L [facility] Comment on above: No normal range esta blished. [facility] Sodium, Random Uron 07-20-20 22 Na Conc. Urine <20 Normal [facility] Comment on above: Result Comment: No n ormal range established. Performed By: #### B C #### [facility] [employer] [address] [place] [address] [phone] Medical Office Asst: Bala Skelton MD Sodium (U) [Moles/Vol] 26 mmol/L Normal [facility] Comment on above: Result Comment: No n ormal range established. Performed By: #### A NAX, IFX, PHEP, FKLLC, PE #### [facility] [address] [place] [address] [phone] Medical Office Asst: Bala Skelton MD Sodium, urine, randomon 07-07 Sodium (U) [Moles/Vol] 26 mmol/L [facility] [employer] Comment on above: No normal range esta [...] Femi Enamorado MD 07/20/22 Final result Normal [facility] 1. Possible nephrostomy at the lower pole left kidney. Correlate with any recent instrumentation. 2. Equivocal dilatation of the upper pole left kidney. No overt hydronephrosis. 3. 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 RECOMMENDATIONS: Unavailable [facility] EXAMINATION: ULTRASOUND OF THE KIDNEYS [...] nephrostomy at the lower pole left kidney. [facility] Femi Enamorado MD - 07/20/2022 [...] involving the left renal hilum. RECOMMENDATIONS: Unavailable [facility] [employer] Phone: Radiology Study observation (narrative) [facility] [employer] Phone: US RETROPERITONEAL LIMITEDOr dered By: Femi Enamorado on 07-20-2022 [facility] [employer] Phone: Urinalysis w/ Microon 2021 Epithelial cells LM Ql (Urine sed) 0 TO 2 Normal 0-5 [facility] Comment on above: Performed By: #### A NAX, IFX, PHEP, FKLLC, PE #### [place] [address] Medical Office Asst: Bala Skelton MD Urine RBC's TOO NUMEROUS TO COUNT Normal 0-2 [facility] Comment on above: Performed By: #### A NAX, IFX, PHEP, FKLLC, PE #### [facility] [employer] [address] [place] [address] Medical Office Asst: Bala Skelton MD Urine WBC's 10 TO 20 Normal 0-5 [facility] Comment on above: Performed By: #### A NAX, IFX, PHEP, FKLLC, PE #### [facility] [employer] [address] [place] [address] [phone] Medical Office Asst: Bala Skelton MD Bilirubin, SemiQt,Ur Negative Normal NEG [facility] Comment on above: Performed By: #### A NAX, IFX, PHEP, FKLLC, PE #### [facility] [employer] [address] [place] [address] Medical Office Asst: Bala Skelton MD Blood, Urine LARGE Abnormal NEG [facility] Comment on above: Performed By: #### A NAX, IFX, PHEP, FKLLC, PE #### [facility] [employer] [address] [place] [address] Medical Office Asst: Bala Skelton MD Clarity (U) Cloudy Abnormal CLEAR [facility] Comment on above: Performed By: #### A NAX, IFX, PHEP, FKLLC, PE #### [facility] [employer] [address] [place] [address] Medical Office Asst: Bala Skelton MD Color (U) [place] Abnormal YEL [facility] Comment on above: Result Comment: INTE RPRET WITH CAUTION DUE TO INTENSE COLOR OF URINE. Performed By: #### A NAX, IFX, PHEP, FKLLC, PE #### [address] [address] Medical Office Asst: Bala Skelton MD Glucose Ql (U) 3+ Abnormal NEG [facility] Comment on above: Performed By: #### A NAX, IFX, PHEP, FKLLC, PE #### [facility] [employer] [address] [place] [address] Medical Office Asst: Bala Skelton MD Ketones Ql (U) Negative Normal NEG [facility] Comment on above: Performed By: #### A NAX, IFX, PHEP, FKLLC, PE #### [facility] [employer] [address] [place] [address] Medical Office Asst: Bala Skelton MD Leukocyte esterase Test strip Ql (U) MODERATE Abnormal NEG [facility] Comment on above: Performed By: #### A NAX, IFX, PHEP, FKLLC, PE #### [address] [address] Medical Office Asst: Bala Skelton MD Nitrite,Ur Negative Normal NEG [facility] Comment on above: Performed By: #### A NAX, IFX, PHEP, FKLLC, PE #### [facility] [address] [place] [address] Medical Office Asst: Bala Skelton MD PH,Ur 5.0 Normal 5.0-8.0 [facility] Comment on above: Performed By: #### A NAX, IFX, PHEP, FKLLC, PE #### [address] [address] Medical Office Asst: Bala Skelton MD Protein Ql (U) 2+ Abnormal NEG [facility] Comment on above: Performed By: #### A NAX, IFX, PHEP, FKLLC, PE #### [address] [address] Medical Office Asst: Bala Skelton MD Spec. [place],Ur 1.022 Normal 1.005-1.030 [facility] Comment on above: Performed By: #### A NAX, IFX, PHEP, FKLLC, PE #### [address] [address] Medical Office Asst: Bala Skelton MD Urobilinogen,Ur Normal Normal NORM [facility] Comment on above: Performed By: #### A NAX, IFX, PHEP, FKLLC, PE #### [address] [address] Medical Office Asst: Bala Skelton MD Urinalysis with Microscopico n 07-20-2022 Bilirubin Urine Negative NEGATIVE [facility] Color, UA [place] Abnormal Yellow [facility] Comment on above: INTERPRET WITH CAUTI ON DUE TO INTENSE COLOR OF URINE. Epithelial Cells UA 0 TO 2 [facility] Glucose, Ur 3+ Abnormal NEGATIVE [facility] Interpretation and review of laboratory results Abnormal [facility] Ketones Ql (U) Negative NEGATIVE [facility] Leukocyte esterase Test strip Ql (U) MODERATE Abnormal NEGATIVE [facility] Nitrite, Urine Negative NEGATIVE [facility] pH, UA 5.0 5 - 8 [facility] Protein, UA 2+ Abnormal NEGATIVE [facility] RBC, UA TOO NUMEROUS TO COUNT [facility] Specific Wayne, UA 1.022 1.005 - 1.03 [facility] Turbidity UA Cloudy Abnormal Clear [facility] Urine Hgb LARGE Abnormal NEGATIVE [facility] Urobilinogen, Urine Normal Normal [facility] WBC, UA 10 TO 20 [facility] Venous Blood Gaseson 022 Body Temp. 37.0 Normal [facility] Comment on above: Performed By: #### V BG #### [facility] [address] [place] [phone] Medical Office Asst: Bala Skelton MD Carboxy Hgb 1.4 % Normal 0-5 [facility] Comment on above: Result Comment: Reference Range: Non-Smokers 0-2% Average Smoker 2-4% Heavy Smoker <10% Performed By: #### V BG #### [address] [address] Medical Office Asst: Bala Skelton MD FIO2 INFORMATION NOT PROVIDED Normal [facility] Comment on above: Performed By: #### V BG #### [facility] [address] [place] [phone] Medical Office Asst: Bala Skelton MD HCO3 (Bld) [Moles/Vol] 19.6 mmol/L Low 24-30 [facility] Comment on above: Performed By: #### V BG #### [facility] [employer] [address] [place] [address] [phone] Medical Office Asst: Bala Skelton MD Negative Base Excess 5.6 mmol/L High 0.0-2.[address] [facility] Comment on above: Performed By: #### V BG #### [address] [address] Medical Office Asst: Bala Skelton MD Oxygen (Bld) [Partial pressure] 36.9 mm[Hg] Normal 30-50 [facility] Comment on above: Performed By: #### V BG #### [address] [address] Medical Office Asst: Bala Skelton MD Oxygen saturation in Blood 74.4 % Normal 60.0-85.0 [facility] Comment on above: Performed By: #### V BG #### [address] [address] Medical Office Asst: Bala Skelton MD pCO2 39.5 Normal 39-55 [facility] Comment on above: Performed By: #### V BG #### [address] [address] Medical Office Asst: Bala Skelton MD pH (Bld) 7.316 [pH] Low 7.320-7.420 [facility] Comment on above: Performed By: #### V BG #### [address] [address] Medical Office Asst: Blaa Skelton MD XR CHEST PORTABLEon 07-20-20 XR [...] Ricarda Orozco DO 07/20/22 Final result Normal [facility] 1. Mild vascular congestion. 2. Minimal [...] related to atelectasis. No dense airspace consolidation. [employer] Phone: Radiology Study observation (narrative) [employer] Phone: XR CHEST PORTABLEOrdered By: Ricarda Orozco on 07-20-2022 [facility] [employer] Phone: Basic Metab w/rfx MGon 07-19 (cont.) Normal [facility] Comment on above: Result Comment: Aver age GFR for 50-59 years old: 93 mL/min/1.73sq m Chronic Kidney Disease: <60 mL/min/1.73sq m Kidney failure: <15 mL/min/1.73sq m eGFR calculated using average adult body mass. Additional eGFR calculator available at: http://www.Glanse.com/multiple_crcl_2012.htm Performed By: #### B MPX, CDP #### [facility] [address] [place] [phone] Medical Office Asst: Bala Skelton MD Anion gap [Moles/Vol] 14 mmol/L Normal 9-17 [facility] Comment on above: Performed By: #### B MPX, CDP #### [facility] [address] [place] [address] Medical Office Asst: Bala Skelton MD Calcium [Mass/Vol] 8.3 mg/dL Low 8.6-10.4 [facility] Comment on above: Performed By: #### B MPX, CDP #### [facility] [address] [place] [address] Medical Office Asst: Bala Skelton MD Chloride [Moles/Vol] 98 mmol/L Normal 98-[address] [facility] Comment on above: Performed By: #### B MPX, CDP #### [facility] [address] [place] [address] Medical Office Asst: Bala Skelton MD CO2 [Moles/Vol] 19 mmol/L Low 20-31 [facility] Comment on above: Performed By: #### B MPX, CDP #### [facility] [address] [place] [address] Medical Office Asst: Bala Skelton MD Creatinine [Mass/Vol] 1.71 mg/dL High 0.50-0.90 [facility] Comment on above: Performed By: #### B MPX, CDP #### [facility] [address] [place] [address] Medical Office Asst: Bala Skelton MD GFR, Amer 38 mL/min Low >60 [facility] Comment on above: Performed By: #### B MPX, CDP #### [facility] [address] [place] [address] Medical Office Asst: Bala Skelton MD GFR,non Amer 32 mL/min Low >[address] [facility] Comment on above: Performed By: #### B MPX, CDP #### [facility] [address] [place] [address] Medical Office Asst: Bala Skelton MD Glucose [Mass/Vol] 263 mg/dL High 70-99 [facility] Comment on above: Performed By: #### B MPX, CDP #### [facility] [address] [place] [address] Medical Office Asst: Bala Skelton MD Potassium [Moles/Vol] 4.0 mmol/L Normal 3.7-5.3 [facility] Comment on above: Performed By: #### B MPX, CDP #### [facility] [address] [place] [address] Medical Office Asst: Bala Skelton MD Sodium [Moles/Vol] 131 mmol/L Low 135-144 [facility] Comment on above: Performed By: #### B MPX, CDP #### [facility] [address] [place] [address] Medical Office Asst: Bala Skelton MD Urea nitrogen [Mass/Vol] 38 mg/dL High 6-20 [facility] Comment on above: Performed By: #### B MPX, CDP #### [facility] [employer] [address] [place] [address] Medical Office Asst: Bala Skelton MD Basic Metabolic Panel w/ Ref romulo to MGon 07-19-2022 Anion gap [Moles/Vol] 14 mmol/L 9 - 17 mmol/L [facility] Calcium [Mass/Vol] 8.3 mg/dL Low 8.6 - 10. 4 mg/dL [facility] Chloride [Moles/Vol] 98 mmol/L 98 - 10 7 mmol/L [facility] CO2 [Moles/Vol] 19 mmol/L Low 20 - 31 mmol/L [facility] Creatinine [Mass/Vol] 1.71 mg/dL High 0.5 - 0.9 mg/dL [facility] GFR 38 mL/min Low 60 - PI NF mL/min [facility] GFR Non- 32 mL/min Low 60 - PINF mL/min [facility] GFR/1.73 sq M.predicted MDRD (S/P/Bld) [Vol rate/Area] [facility] Comment on above: Average GFR for 50-5 9 years old: 93 mL/min/1.73sq m Chronic Kidney Disease: <60 mL/min/1.73sq m Kidney failure: <15 mL/min/1.73sq m eGFR calculated using average adult body mass. Additional eGFR calculator available at: http://www.Unidym/multiple_crcl_2012.htm Glucose [Mass/Vol] 263 mg/dL High 70 - 99 mg/dL [facility] Interpretation and review of laboratory results Abnormal [facility] Potassium [Moles/Vol] 4.0 mmol/L 3.7 - 5.3 mmol/L [facility] Sodium [Moles/Vol] 131 mmol/L Low 135 - 144 mmol/L [facility] Urea nitrogen (BldV) [Mass/Vol] 38 mg/dL High 6 - 20 mg/dL [facility] CBC with Auto Differentialon 07-19-2022 Absolute Eos # 0.16 [facility] Absolute Immature Granulocyte 0.05 [facility] Absolute Lymph # 2.34 [facility] Absolute [place]ath[place] # 0.64 [facility] Basophils (Bld) [#/Vol] 0.03 10*3/uL [facility] Basophils/100 WBC (Bld) 0 % 0 - 2 % [facility] Eosinophils/100 WBC (Bld) 2 % 1 - 4 % [facility] Hematocrit (Bld) [Volume fraction] 30.2 % Low 36.3 - 47.1 % [facility] Hemoglobin (Bld) [Mass/Vol] 10.4 g/dL Low 11.9 - 15.1 g/dL [facility] Immature granulocytes/100 WBC (Bld) 1 % High 0 [facility] Interpretation and review of laboratory results Abnormal [facility] Lymphocytes/100 WBC (Bld) 33 % 24 - 43 % [facility] MCH (RBC) [Entitic mass] 29.7 pg 25.2 - 33.5 pg [facility] MCHC (RBC) [Mass/Vol] 34.4 g/dL 28.4 - 34.8 g/dL [facility] MCV (RBC) [Entitic vol] 86.3 fL 82.6 - 102.9 fL [facility] Monocytes/100 WBC (Bld) 9 % 3 - 12 % [facility] NRBC Automated 0.0 0.0 per 100 WBC [facility] Platelet distribution width (Bld) [Ratio] 13.6 % 11.8 - 14.4 % [facility] Platelet mean volume (Bld) [Entitic vol] 11.2 fL 8.1 - 13.5 fL [facility] Platelets (Bld) [#/Vol] 410 10*3/uL [facility] RBC (Bld) [#/Vol] 3.50 10*6/uL Low 3.95 - 5.1 1 m/uL [facility] Segmented neutrophils/100 WBC (Bld) 54 % 36 - 65 % [facility] Segs Absolute 3.83 [facility] WBC (Bld) [#/Vol] 7.1 10*3/uL [facility] CBC with Diffon 07-19-2022 Abs. Basophil 0.03 k/uL Normal 0.00-0.20 [facility] Comment on above: Performed By: #### B STEPHENIEX CDP #### [employer] [address] [place] [address] Medical Office Asst: Bala Skelton MD Abs.Imm.Granulocyte 0.05 k/uL Normal 0.00-0.30 [facility] Comment on above: Performed By: #### B STEPHENIEX, CDP #### [address] [address] Medical Office Asst: Bala Skelton MD Abs.Neutrophil (Seg) 3.83 k/uL Normal 1.50-8.[address] [facility] Comment on above: Performed By: #### B MPX, CDP #### [address] [address] Medical Office Asst: Bala Skelton MD Basophils/100 WBC (Bld) 0 % Normal 0-2 [facility] Comment on above: Performed By: #### B MPX, CDP #### [address] [address] Medical Office Asst: Bala Skelton MD Eosinophils (Bld) [#/Vol] 0.16 10*3/uL Normal 0.00-0.44 [facility] Comment on above: Performed By: #### B MPX, CDP #### [address] [address] Medical Office Asst: Bala Skelton MD Eosinophils/100 WBC (Bld) 2 % Normal 1-4 [facility] Comment on above: Performed By: #### B MPX, CDP #### [address] [address] Medical Office Asst: Bala Skelton MD Erythrocyte distribution width (RBC) [Ratio] 13.6 % Normal 11.8-14.4 [facility] Comment on above: Performed By: #### B MPX, CDP #### [address] [address] Medical Office Asst: Bala Skelton MD Hematocrit (Bld) [Volume fraction] 30.2 % Low 36.3-47.1 [facility] Comment on above: Performed By: #### B MPX, CDP #### [address] [address] Medical Office Asst: Bala Skelton MD Hemoglobin (Bld) [Mass/Vol] 10.4 g/dL Low 11.9-15.1 [facility] Comment on above: Performed By: #### B MPX, CDP #### [address] [address] Medical Office Asst: Bala Skelton MD Immature granulocytes/100 WBC (Bld) 1 % High 0 [facility] Comment on above: Performed By: #### B MPX, CDP #### [address] [address] Medical Office Asst: Bala Skelton MD Lymphocytes (Bld) [#/Vol] 2.34 10*3/uL Normal 1.10-3.70 [facility] Comment on above: Performed By: #### B MPX, CDP #### [address] [address] Medical Office Asst: Bala Skelton MD Lymphocytes/100 WBC (Bld) 33 % Normal 24-43 [facility] Comment on above: Performed By: #### B MPX, CDP #### [address] [address] Medical Office Asst: Bala Skelton MD MCH (RBC) [Entitic mass] 29.7 pg Normal 25.2-33.5 [facility] Comment on above: Performed By: #### B MPX, CDP #### [address] [address] Medical Office Asst: Bala Skelton MD MCHC (RBC) [Mass/Vol] 34.4 g/dL Normal 28.4-34.8 [facility] Comment on above: Performed By: #### B MPX, CDP #### [address] [address] Medical Office Asst: Bala Skelton MD MCV (RBC) [Entitic vol] 86.3 fL Normal 82.6-102.9 [facility] Comment on above: Performed By: #### B MPX, CDP #### [address] [address] Medical Office Asst: Bala Skelton MD Monocytes (Bld) [#/Vol] 0.64 10*3/uL Normal 0.10-1.20 [facility] Comment on above: Performed By: #### B MPX, CDP #### [address] [address] Medical Office Asst: Bala Skelton MD Monocytes/100 WBC (Bld) 9 % Normal 3-12 [facility] Comment on above: Performed By: #### B MPX, CDP #### [address] [address] Medical Office Asst: Bala Skelton MD Neutrophil (Seg) 54 % Normal 36-65 [facility] Comment on above: Performed By: #### B MPX, CDP #### [address] [address] Medical Office Asst: Bala Skelton MD NRBC Automated 0.0 per 100 WBC Normal 0.0 [facility] Comment on above: Performed By: #### B MPX, CDP #### [address] [address] Medical Office Asst: Bala Skelton MD Platelet mean volume (Bld) [Entitic vol] 11.2 fL Normal 8.1-13.5 [facility] Comment on above: Performed By: #### B MPX, CDP #### [address] [address] Medical Office Asst: Bala Skelton MD Platelets (Bld) [#/Vol] 410 10*3/uL Normal 138-453 [facility] Comment on above: Performed By: #### B MPX, CDP #### [facility] [address] [place] [address] Medical Office Asst: Bala Skelton MD RBC (Bld) [#/Vol] 3.50 10*6/uL Low 3.95-5.11 [facility] Comment on above: Performed By: #### B MPX, CDP #### [facility] [place] [address] Medical Office Asst: Bala Skelton MD WBC (Bld) [#/Vol] 7.1 10*3/uL Normal 3.5-11.3 [facility] Comment on above: Performed By: #### B MPX, CDP #### [facility] [address] [place] [address] Medical Office Asst: Bala Skelton MD Cult,Urineon 07-19-2022 Cult,Urine Specimen Description .CLEAN CATCH URINE Culture NO SIGNIFICANT GROWTH Report Status FINAL 07/19/2022 Normal [facility] Comment on above: Performed By: #### A NAX, IFX, PHEP, FKLLC, PE #### [facility] [employer] [address] [place] [address] Medical Office Asst: Bala Skelton MD Culture, Urineon 07-19-2022 Bacteria identified Cx Nom (U) NO SIGNIFICANT GROWTH [facility] Specimen Description .CLEAN CATCH URINE [facility] IR GUIDED NEPHROSTOMY CATH P LACEMENT LEFTon [...] the procedure including risks, benefits, and alternatives. [place] protocol was followed. The patient's flank was [...] into the urinary bladder using a 4 Tanzanian Kumpe the catheter; the Glidewire was exchanged [...] puncture of the lower pole calyx, 4 [place] Kumpe the catheter manipulation and glidewire extension into the urinary bladder. Subsequent images show the nephroureteral stent in satisfactory position. IMPRESSION: Successful percutaneous left nephroureteral stent placement via lower pole, past a large staghorn calculus, with distal pigtail tip position in the urinary bladder, as above. Findings were discussed with KASH CLAY at 4:09 pm on 07/19/2022. [facility] Phone: Radiology Study observation (narrative) [facility] Phone: IR GUIDED NEPHROSTOMY CATH P LACEMENT LEFTOrdered By: Noman Mullen on 07-19-2022 [facility] Work Phone: POC Glucose Fingerstickon Glucose [Mass/Vol] 278 mg/dL High 65 - 105 mg/dL [facility] Interpretation and review of laboratory results Abnormal [facility] Glucose [Mass/Vol] 231 mg/dL High 65 - 105 mg/dL [facility] Interpretation and review of laboratory results Abnormal [facility] Glucose [Mass/Vol] 301 mg/dL High 65 - 105 mg/dL [facility] Interpretation and review of laboratory results Abnormal [facility] Glucose [Mass/Vol] 283 mg/dL High 65 - 105 mg/dL [facility] Interpretation and review of laboratory results Abnormal [facility] PTon 07-19-2022 INR Coag (PPP) [Relative time] 0.9 {INR} Normal [facility] Comment on above: Result Comment: Therapeutic Range: Moderate Anticoagulant Intensity: INR = 2.0-3.0 High Anticoagulant Intensity: INR = 2.5-3.5 Performed By: #### A NAX, IFX, PHEP, FKLLC, PE #### [employer] [address] [place], [place] [id number] Medical Office Asst: Bala Skelton MD PT Coag (PPP) [Time] 9.8 s Normal 9.1-12.[address] [facility] Comment on above: Performed By: #### A NAX, IFX, PHEP, FKLLC, PE #### [facility] [address] [place] [address] Medical Office Asst: Bala Skelton MD Protime-INRon 07-19-2022 INR Coag (Bld) [Relative time] 0.9 {INR} [facility] Comment on above: Therapeutic Range: Moderate Anticoagulant Intensity: INR = 2.0-3.0 High Anticoagulant Intensity: INR = 2.5-3.5 PT Coag (PPP) [Time] 9.8 s [facility] Urinalysis w/ Microon 2021 Bilirubin, SemiQt,Ur Negative Normal NEG [facility] Comment on above: Performed By: #### A NAX, IFX, PHEP, FKLLC, PE #### [address] [address] Medical Office Asst: Bala Skelton MD Blood, Urine LARGE Abnormal NEG [facility] Comment on above: Performed By: #### A NAX, IFX, PHEP, FKLLC, PE #### [address] [address] Medical Office Asst: Bala Skelton MD Casts 2 TO 5 HYALINE Normal 0-8 [facility] Comment on above: Result Comment: Refe rence range defined for non-centrifuged specimen. Performed By: #### A NAX, IFX, PHEP, FKLLC, PE #### [address] [address] Medical Office Asst: Bala Skelton MD Clarity (U) Turbid Abnormal CLEAR [facility] Comment on above: Performed By: #### A NAX, IFX, PHEP, FKLLC, PE #### [address] [phone] Medical Office Asst: Bala Skelton MD Color (U) Yellow Normal YEL [facility] Comment on above: Performed By: #### A NAX, IFX, PHEP, FKLLC, PE #### [address] [id number] Medical Office Asst: Bala Skelton MD Epithelial cells LM Ql (Urine sed) 0 TO 2 Normal 0-5 [facility] Comment on above: Performed By: #### A NAX, IFX, PHEP, FKLLC, PE #### [facility] [employer] [address] [place] [address] Medical Office Asst: Bala Skelton MD Glucose Ql (U) 1+ Abnormal NEG [facility] Comment on above: Performed By: #### A NAX, IFX, PHEP, FKLLC, PE #### [facility] [employer] [address] [place] [address] Medical Office Asst: Bala Skelton MD Ketones Ql (U) Negative Normal NEG [facility] Comment on above: Performed By: #### A NAX, IFX, PHEP, FKLLC, PE #### [facility] [employer] [address] [place] [address] Medical Office Asst: Bala Skelton MD Leukocyte esterase Test strip Ql (U) LARGE Abnormal NEG [facility] Comment on above: Performed By: #### A NAX, IFX, PHEP, FKLLC, PE #### [facility] [employer] [address] [place] [address] Medical Office Asst: Bala Skelton MD Nitrite,Ur Negative Normal NEG [facility] Comment on above: Performed By: #### A NAX, IFX, PHEP, FKLLC, PE #### [facility] [employer] [address] [place] [address] Medical Office Asst: Bala Skelton MD PH,Ur 5.0 Normal 5.0-8.0 [facility] Comment on above: Performed By: #### A NAX, IFX, PHEP, FKLLC, PE #### [facility] [employer] [address] [place] [address] Medical Office Asst: Bala Skelton MD Protein Ql (U) 1+ Abnormal NEG [facility] Comment on above: Performed By: #### A NAX, IFX, PHEP, FKLLC, PE #### [facility] [address] [place] [address] Medical Office Asst: Bala Skelton MD Spec. Wayne,Ur 1.017 Normal 1.005-1.030 [facility] Comment on above: Performed By: #### A NAX, IFX, PHEP, FKLLC, PE #### [facility] [address] [place] [address] Medical Office Asst: Bala Skelton MD Urine RBC's 10 TO 20 Normal 0-4 [facility] Comment on above: Result Comment: Refe rence range defined for non-centrifuged specimen. Performed By: #### A NAX, IFX, PHEP, FKLLC, PE #### [facility] [employer] [address] [place] [address] Medical Office Asst: Bala Skelton MD Urine WBC's TOO NUMEROUS TO COUNT Normal 0-5 [facility] Comment on above: Performed By: #### A NAX, IFX, PHEP, FKLLC, PE #### [facility] [address] [place] [address] Medical Office Asst: Bala Skelton MD Urobilinogen,Ur Normal Normal NORM [facility] Comment on above: Performed By: #### A NAX, IFX, PHEP, FKLLC, PE #### [address] [address] Medical Office Asst: Bala Skelton MD Urinalysis with Microscopico n 07-19-2022 Bilirubin Urine Negative NEGATIVE [facility] Casts UA 2 TO 5 HYALINE Reference range defined for non-centrifuged specimen. [facility] Color, UA Yellow Yellow [facility] Epithelial Cells UA 0 TO 2 [facility] Glucose, Ur 1+ Abnormal NEGATIVE [facility] Interpretation and review of laboratory results Abnormal [facility] Ketones Ql (U) Negative NEGATIVE [facility] Leukocyte esterase Test strip Ql (U) LARGE Abnormal NEGATIVE [facility] Nitrite, Urine Negative NEGATIVE [facility] pH, UA 5.0 5 - 8 [facility] Protein, UA 1+ Abnormal NEGATIVE [facility] RBC, UA 10 TO 20 [facility] Comment on above: Reference range defi rodger for non-centrifuged specimen. Specific Wayne, UA 1.017 1.005 - 1.03 [facility] Turbidity UA Turbid Abnormal Clear [facility] Urine Hgb LARGE Abnormal NEGATIVE [facility] Urobilinogen, Urine Normal Normal [facility] WBC, UA TOO NUMEROUS TO COUNT [facility] APTTon 07-18-2022 aPTT Coag (Bld) [Time] 22.8 s Normal 20.5-30.5 [facility] Comment on above: Result Comment: IV Heparin Therapy Range: 48.6-77.8 Performed By: #### A NAX, IFX, PHEP, FKLLC, PE #### [employer] [address] [place] [address] Medical Office Asst: Bala Skelton MD aPTT Coag (Bld) [Time] 22.8 s [facility] Comment on above: IV Heparin Therapy Range: 48.6-77.8 Basic Metab w/rfx MGon 07-18 (cont.) Normal [facility] Comment on above: Result Comment: Aver age GFR for 50-59 years old: 93 mL/min/1.73sq m Chronic Kidney Disease: <60 mL/min/1.73sq m Kidney failure: <15 mL/min/1.73sq m eGFR calculated using average adult body mass. Additional eGFR calculator available at: http://www.Glanse.com/multiple_crcl_2012.htm Performed By: #### A NAX, IFX, PHEP, FKLLC, PE #### [employer] [facility] [place] [address] Medical Office Asst: Bala Skelton MD Anion gap [Moles/Vol] 13 mmol/L Normal 9-17 [facility] Comment on above: Performed By: #### A NAX, IFX, PHEP, FKLLC, PE #### [facility] [address] [place] [address] Medical Office Asst: Bala Skelton MD Calcium [Mass/Vol] 9.4 mg/dL Normal 8.6-10.4 [facility] Comment on above: Performed By: #### A NAX, IFX, PHEP, FKLLC, PE #### [address] [address] Medical Office Asst: Bala Skelton MD Chloride [Moles/Vol] 100 mmol/L Normal 98-[address] [facility] Comment on above: Performed By: #### A NAX, IFX, PHEP, FKLLC, PE #### [address] [address] Medical Office Asst: Bala Skelton MD CO2 [Moles/Vol] 24 mmol/L Normal 20-31 [facility] Comment on above: Performed By: #### A NAX, IFX, PHEP, FKLLC, PE #### [address] [address] Medical Office Asst: Bala Skelton MD Creatinine [Mass/Vol] 1.65 mg/dL High 0.50-0.90 [facility] Comment on above: Performed By: #### A NAX, IFX, PHEP, FKLLC, PE #### [address] [address] Medical Office Asst: Bala Skelton MD GFR, Amer 40 mL/min Low >60 [facility] Comment on above: Performed By: #### A NAX, IFX, PHEP, FKLLC, PE #### [facility] [address] [place] [address] Medical Office Asst: Bala Skelton MD GFR,non Amer 33 mL/min Low >[address] [facility] Comment on above: Performed By: #### A NAX, IFX, PHEP, FKLLC, PE #### [facility] [employer] [address] [place] [phone] Medical Office Asst: Bala Skelton MD Glucose [Mass/Vol] 239 mg/dL High 70-99 [facility] Comment on above: Performed By: #### A NAX, IFX, PHEP, FKLLC, PE #### [facility] [address] [place] [phone] Medical Office Asst: Bala Skelton MD Potassium [Moles/Vol] 4.9 mmol/L Normal 3.7-5.3 [facility] Comment on above: Performed By: #### A NAX, IFX, PHEP, FKLLC, PE #### [address] [address] Medical Office Asst: Bala Skelton MD Sodium [Moles/Vol] 137 mmol/L Normal 135-144 [facility] Comment on above: Performed By: #### A NAX, IFX, PHEP, FKLLC, PE #### [facility] [employer] [address] [place] [address] Medical Office Asst: Bala Skelton MD Urea nitrogen [Mass/Vol] 33 mg/dL High 6-20 [facility] Comment on above: Performed By: #### A NAX, IFX, PHEP, FKLLC, PE #### [facility] [employer] [address] [place] [address] Medical Office Asst: Bala Skelton MD Basic Metabolic Panel w/ Ref romulo to MGon 07-18-2022 Anion gap [Moles/Vol] 13 mmol/L 9 - 17 mmol/L [facility] Calcium [Mass/Vol] 9.4 mg/dL 8.6 - 10. 4 mg/dL [facility] Chloride [Moles/Vol] 100 mmol/L 98 - 10 7 mmol/L [facility] CO2 [Moles/Vol] 24 mmol/L 20 - 31 mmol/L [facility] Creatinine [Mass/Vol] 1.65 mg/dL High 0.5 - 0.9 mg/dL [facility] GFR 40 mL/min Low 60 - PI NF mL/min [facility] GFR Non- 33 mL/min Low 60 - PINF mL/min [facility] GFR/1.73 sq M.predicted MDRD (S/P/Bld) [Vol rate/Area] [facility] Comment on above: Average GFR for 50-5 9 years old: 93 mL/min/1.73sq m Chronic Kidney Disease: <60 mL/min/1.73sq m Kidney failure: <15 mL/min/1.73sq m eGFR calculated using average adult body mass. Additional eGFR calculator available at: http://www.Unidym/multiple_crcl_2011.htm Glucose [Mass/Vol] 239 mg/dL High 70 - 99 mg/dL [facility] Interpretation and review of laboratory results Abnormal [facility] Potassium [Moles/Vol] 4.9 mmol/L 3.7 - 5.3 mmol/L [facility] Sodium [Moles/Vol] 137 mmol/L 135 - 144 mmol/L [facility] Urea nitrogen (BldV) [Mass/Vol] 33 mg/dL High 6 - 20 mg/dL [facility] CBC AUTO DIFFon 07-18-2022 BASO # 0.0 103/ul Normal 0.0-0.1 [facility] Comment on above: Performed By: #### C BC #### [facility] [address] [place], [place] [address] Dr. Delmer Rea Basophils/100 WBC (Bld) 0.2 % Normal 0.2-2.0 [facility] Comment on above: Performed By: #### C BC #### [facility] [address] [place], [place] [address] Dr. Delmer Rea EO # 0.1 103/ul Normal 0.0-0.7 [facility] Comment on above: Performed By: #### C BC #### [facility] [address] [place] [address] [address] Delmer Rea Eosinophils/100 WBC (Bld) 0.7 % Critically low 0.9-7.0 [facility] Comment on above: Performed By: #### C BC #### [facility] [address] [place] [address] [address] Delmer Rea Erythrocyte distribution width (RBC) [Ratio] 13.1 % Normal 11.0-15.0 [facility] Comment on above: Performed By: #### C BC #### [facility] [address] [place] [address] Dr. Delmer Rea Hematocrit (Bld) [Volume fraction] 36.9 % Normal 36.0-48.0 [facility] Comment on above: Performed By: #### C BC #### [facility] [address] [place] [address] Dr. Delmer Rea Hemoglobin (Bld) [Mass/Vol] 12.5 g/dL Normal 12.0-16.0 [facility] Comment on above: Performed By: #### C BC #### [facility] [address] [place] [address] Dr. Delmer Rea IG # 0.08 10e3/ul Critically high 0.00-0.03 [facility] Comment on above: Performed By: #### C BC #### [facility] [address] [place] [address] Dr. Delmer Rea IG % 0.6 % Critically high 0.0-0.5 [facility] Comment on above: Performed By: #### C BC #### [facility] [address] [place] [address] Dr. Delmer Rea LYMPH # 1.5 103/ul Normal 1.2-3.8 [facility] Comment on above: Performed By: #### C BC #### [facility] [address] [place] [address] Dr. Delmer Rea Lymphocytes/100 WBC (Bld) 11.0 % Critically low 20.5-60.0 [facility] Comment on above: Performed By: #### C BC #### [facility] [address] [place] [address] Dr. Delmer Rea MANUAL DIFF REQ NO Normal [facility] Comment on above: Performed By: #### C BC #### [facility] [address] [place] [address] Dr. Delmer Rea MCH (RBC) [Entitic mass] 29.0 pg Normal 26.7-34.0 [facility] Comment on above: Performed By: #### C BC #### [facility] [address] [place] [address] Dr. Delmer Rea MCHC (RBC) [Mass/Vol] 33.9 g/dL Normal 29.9-35.2 [facility] Comment on above: Performed By: #### C BC #### [facility] [address] [place] [address] Dr. Delmer Rea MCV (RBC) [Entitic vol] 85.6 fL Normal 81.0-99.0 [facility] Comment on above: Performed By: #### C BC #### [facility] [address] [place] [address] Dr. Delmer Rea MONO # 0.8 103/ul Normal 0.3-0.8 [facility] Comment on above: Performed By: #### C BC #### [facility] [address] [place] [address] Dr. Delmer Rea Monocytes/100 WBC (Bld) 5.9 % Normal 1.7-12.0 [facility] Comment on above: Performed By: #### C BC #### [facility] [address] [place] [address] Dr. Delmer Rea NEUT # 11.2 103/ul Critically high 1.4-6.5 [facility] Comment on above: Performed By: #### C BC #### [facility] [address] [place] [address] Dr. Delmer Rea Neutrophils/100 WBC (Bld) 81.6 % Critically high 43.0-75.0 [facility] [facility] Comment on above: Performed By: #### C BC #### [facility] [address] [address] [address] Delmer Rea Platelet mean volume (Bld) [Entitic vol] 10.3 fL Normal 9.5-13.5 [facility] Comment on above: Performed By: #### C BC #### [facility] [address] [address] [address] Delmer Rea PLT 362 103/ul Normal 150-450 [facility] Comment on above: Performed By: #### C BC #### [facility] [address] [address] [address] Delmer Rea RBC 4.31 106/ul Normal 4.20-5.40 [facility] Comment on above: Performed By: #### C BC #### [facility] [address] [address] [address] Delmer Rea WBC 13.7 103/ul Critically high 4.0-11.0 [facility] Comment on above: Performed By: #### C BC #### [facility] [address] [address] [address] Delmer Rea CBC with Auto Differentialon 07-18-2022 Absolute Eos # 0.08 [facility] Absolute Immature Granulocyte 0.08 [facility] Absolute Lymph # 2.13 [facility] Absolute Breathitt # 0.84 [facility] Basophils (Bld) [#/Vol] 0.04 10*3/uL [facility] Basophils/100 WBC (Bld) 0 % 0 - 2 % [facility] Eosinophils/100 WBC (Bld) 1 % 1 - 4 % [facility] Hematocrit (Bld) [Volume fraction] 35.4 % Low 36.3 - 47.1 % [facility] Hemoglobin (Bld) [Mass/Vol] 11.8 g/dL Low 11.9 - 15.1 g/dL [facility] Immature granulocytes/100 WBC (Bld) 1 % High 0 [facility] Interpretation and review of laboratory results Abnormal [facility] Lymphocytes/100 WBC (Bld) 17 % Low 24 - 43 % [facility] MCH (RBC) [Entitic mass] 28.6 pg 25.2 - 33.5 pg [facility] MCHC (RBC) [Mass/Vol] 33.3 g/dL 28.4 - 34.8 g/dL [facility] MCV (RBC) [Entitic vol] 85.7 fL 82.6 - 102.9 fL [facility] Monocytes/100 WBC (Bld) 7 % 3 - 12 % [facility] NRBC Automated 0.0 0.0 per 100 WBC [facility] Platelet distribution width (Bld) [Ratio] 13.2 % 11.8 - 14.4 % [facility] Platelet mean volume (Bld) [Entitic vol] 10.4 fL 8.1 - 13.5 fL [facility] Platelets (Bld) [#/Vol] 339 10*3/uL [facility] RBC (Bld) [#/Vol] 4.13 10*6/uL 3.95 - 5.1 1 m/uL [facility] Segmented neutrophils/100 WBC (Bld) 74 % High 36 - 65 % [facility] Segs Absolute 9.11 High [facility] WBC (Bld) [#/Vol] 12.3 10*3/uL High [facility] CBC with Diffon 07-18-2022 Abs. Basophil 0.04 k/uL Normal 0.00-0.20 [facility] Comment on above: Performed By: #### A NAX, IFX, PHEP, FKLLC, PE #### [facility] [place], [place] [id number] Medical Office Asst: Bala Skelton MD Abs.Imm.Granulocyte 0.08 k/uL Normal 0.00-0.30 [facility] Comment on above: Performed By: #### A NAX, IFX, PHEP, FKLLC, PE #### [facility] [place], [place] [address] Medical Office Asst: Bala Skelton MD Abs.Neutrophil (Seg) 9.11 k/uL High 1.50-8.[address] [facility] Comment on above: Performed By: #### A NAX, IFX, PHEP, FKLLC, PE #### [address] [address] Medical Office Asst: Bala Skelton MD Basophils/100 WBC (Bld) 0 % Normal 0-2 [facility] Comment on above: Performed By: #### A NAX, IFX, PHEP, FKLLC, PE #### [address] [address] Medical Office Asst: Bala Skelton MD Eosinophils (Bld) [#/Vol] 0.08 10*3/uL Normal 0.00-0.44 [facility] Comment on above: Performed By: #### A NAX, IFX, PHEP, FKLLC, PE #### [address] [address] Medical Office Asst: Bala Skelton MD Eosinophils/100 WBC (Bld) 1 % Normal 1-4 [facility] Comment on above: Performed By: #### A NAX, IFX, PHEP, FKLLC, PE #### [address] [address] Medical Office Asst: Bala Skelton MD Erythrocyte distribution width (RBC) [Ratio] 13.2 % Normal 11.8-14.4 [facility] Comment on above: Performed By: #### A NAX, IFX, PHEP, FKLLC, PE #### [place] [address] Medical Office Asst: Bala Skelton MD Hematocrit (Bld) [Volume fraction] 35.4 % Low 36.3-47.1 [facility] Comment on above: Performed By: #### A NAX, IFX, PHEP, FKLLC, PE #### [address] [address] Medical Office Asst: Bala Skelton MD Hemoglobin (Bld) [Mass/Vol] 11.8 g/dL Low 11.9-15.1 [facility] Comment on above: Performed By: #### A NAX, IFX, PHEP, FKLLC, PE #### [address] [address] Medical Office Asst: Bala Skelton MD Immature granulocytes/100 WBC (Bld) 1 % High 0 [facility] Comment on above: Performed By: #### A NAX, IFX, PHEP, FKLLC, PE #### [address] [address] Medical Office Asst: Bala Skelton MD Lymphocytes (Bld) [#/Vol] 2.13 10*3/uL Normal 1.10-3.70 [facility] Comment on above: Performed By: #### A NAX, IFX, PHEP, FKLLC, PE #### [address] [address] Medical Office Asst: Bala Skelton MD Lymphocytes/100 WBC (Bld) 17 % Low 24-43 [facility] Comment on above: Performed By: #### A NAX, IFX, PHEP, FKLLC, PE #### [address] [address] Medical Office Asst: Bala Skelton MD MCH (RBC) [Entitic mass] 28.6 pg Normal 25.2-33.5 [facility] Comment on above: Performed By: #### A NAX, IFX, PHEP, FKLLC, PE #### [address] [address] Medical Office Asst: Bala Skelton MD MCHC (RBC) [Mass/Vol] 33.3 g/dL Normal 28.4-34.8 [facility] Comment on above: Performed By: #### A NAX, IFX, PHEP, FKLLC, PE #### [address] [address] Medical Office Asst: Bala Skelton MD MCV (RBC) [Entitic vol] 85.7 fL Normal 82.6-102.9 [facility] Comment on above: Performed By: #### A NAX, IFX, PHEP, FKLLC, PE #### [address] [address] Medical Office Asst: Bala Skelton MD Monocytes (Bld) [#/Vol] 0.84 10*3/uL Normal 0.10-1.20 [facility] Comment on above: Performed By: #### A NAX, IFX, PHEP, FKLLC, PE #### [address] [address] Medical Office Asst: Bala Skelton MD Monocytes/100 WBC (Bld) 7 % Normal 3-12 [facility] Comment on above: Performed By: #### A NAX, IFX, PHEP, FKLLC, PE #### [address] [address] Medical Office Asst: Bala Skelton MD Neutrophil (Seg) 74 % High 36-65 [facility] Comment on above: Performed By: #### A NAX, IFX, PHEP, FKLLC, PE #### [address] [address] Medical Office Asst: Bala Skelton MD NRBC Automated 0.0 per 100 WBC Normal 0.0 [facility] Comment on above: Performed By: #### A NAX, IFX, PHEP, FKLLC, PE #### [address] [address] Medical Office Asst: Bala Skelton MD Platelet mean volume (Bld) [Entitic vol] 10.4 fL Normal 8.1-13.5 [facility] Comment on above: Performed By: #### A NAX, IFX, PHEP, FKLLC, PE #### [address] [address] Medical Office Asst: Bala Skelton MD Platelets (Bld) [#/Vol] 339 10*3/uL Normal 138-453 [facility] Comment on above: Performed By: #### A NAX, IFX, PHEP, FKLLC, PE #### [address] [address] Medical Office Asst: Bala Skelton MD RBC (Bld) [#/Vol] 4.13 10*6/uL Normal 3.95-5.11 [facility] Comment on above: Performed By: #### A NAX, IFX, PHEP, FKLLC, PE #### [address] [address] Medical Office Asst: Bala Skelton MD WBC (Bld) [#/Vol] 12.3 10*3/uL High 3.5-11.3 [facility] Comment on above: Performed By: #### A NAX, IFX, PHEP, FKLLC, PE #### [address] [address] Medical Office Asst: Bala Skelton MD CT ABD/PELVIS WO CONon [...] MARAH ALCANTAR Date: 2022-07-18 12:01 Normal [facility] Covid-19 PCR (CVDTB)on 07-07 SARS-CoV-2 (COVID-19) RNA KASI+probe Ql (Unsp spec) Not detected Normal NOT DETECTED [facility] Comment on above: Result Comment: When [...] for this test is supported by the [place] of Health and Human Service's declaration that [...] DLDL, CON, LIPID, T7, CMP, TSH #### [facility] [address] [place] [address] Dr. Delmer Rea ER URINE PROFILEon 2 Bilirubin Ql (U) Negative Normal NEGATIVE [facility] Comment on above: Performed By: #### U MICRO, ERUR #### [facility] [address] [place] [address] Dr. Delmer Rea Clarity (U) SL CLOUDY Abnormal CLEAR [facility] Comment on above: Performed By: #### U MICRO, ERUR #### [facility] [address] [place] [address] Dr. Delmer Rea Color (U) LT. YELLOW Normal YELLOW [facility] Comment on above: Performed By: #### U MICRO, ERUR #### [facility] [address] [place] [address] Dr. Delmer WALKER A micrscopic examination will be performed if indicated. Normal [facility] Comment on above: Performed By: #### U MICRO, ERUR #### [facility] [address] [place] [address] Dr. Delmer Rea Glucose Ql (U) 1000 mg/dl Abnormal NEGATIVE [facility] Comment on above: Performed By: #### U MICRO, ERUR #### [facility] [address] [place] [address] Dr. Delmer Rea Hemoglobin Ql (U) LARGE Abnormal NEGATIVE [facility] Comment on above: Performed By: #### U MICRO, ERUR #### [facility] [address] [place] [address] Dr. Delmer Rea Ketones Ql (U) Negative Normal NEGATIVE [facility] Comment on above: Performed By: #### U MICRO, ERUR #### [facility] [address] [address] [address] Delmer Rea LEUKOCYTES SMALL Abnormal NEGATIVE [facility] Comment on above: Performed By: #### U MICRO, ERUR #### [facility] [address] [place] [address] Dr. Delmer Rea Nitrite Ql (U) Positive Abnormal NEGATIVE [facility] Comment on above: Performed By: #### U MICRO, ERUR #### [facility] [address] [address] [address] Delmer Rea pH (U) 5.5 [pH] Normal 5-9 [facility] Comment on above: Performed By: #### U MICRO, ERUR #### [facility] [address] [place] [address] Dr. Delmer Rea SPEC GRAVITY 1.020 Normal 1.005-<=1.025 The [facility] Comment on above: Performed By: #### U MICRO, ERUR #### [facility] [address] [place] [address] Dr. Delmer Rea UA PROTEIN TRACE Normal NEGATIVE/ TRACE [facility] Comment on above: Performed By: #### U MICRO, ERUR #### [facility] [address] [place] [address] Dr. Delmer Rea UR MICRO IND INDICATED Normal [facility] Comment on above: Performed By: #### U MICRO, ERUR #### [facility] [address] [place] [address] Dr. Delmer Rea Urobilinogen Qn (U) 0.2 {Juanita'U}/dL Normal 0.2 - 1. 0 [facility] Comment on above: Performed By: #### U MICRO, ERUR #### [facility] [address] [place] [address] Dr. Delmer Rea No Panel Informationon 07-18 [facility] POC Glucose Fingerstickon Glucose [Mass/Vol] 227 mg/dL High 65 - 105 mg/dL [facility] Interpretation and review of laboratory results Abnormal [facility] Glucose [Mass/Vol] 189 mg/dL High 65 - 105 mg/dL [facility] Interpretation and review of laboratory results Abnormal [facility] POCT glucoseOrdered By: Jason Swenson on 07-18-2022 Glucose [Mass/Vol] 189 mg/dL [facility] Interpretation and review of laboratory results Normal [facility] PROF CHEM 8 (BAS METB)on Anion gap [Moles/Vol] 13.6 mmol/L Normal [facility] Comment on above: Performed By: #### U MICRO, ERUR #### [facility] [address] [address] [address] Delmer Rea Calcium [Mass/Vol] 9.6 mg/dL Normal 8.5-10.1 [facility] Comment on above: Performed By: #### U MICRO, ERUR #### [facility] [address] [address] [address] Delmer Rea Chloride [Moles/Vol] 98 mmol/L Normal 98-107 [facility] Comment on above: Performed By: #### U MICRO, ERUR #### [facility] [address] [address] [address] Delmer Rea CO2 [Moles/Vol] 26.0 mmol/L Normal 21.0-32.0 [facility] Comment on above: Performed By: #### U MICRO, ERUR #### [facility] [address] [address] [address] Delmer Rea Creatinine [Mass/Vol] 1.45 mg/dL Critically high 0.55-1.02 [facility] Comment on above: Performed By: #### U MICRO, ERUR #### [facility] [address] [address] [address] Delmer Rea EGFR-AF MONEGASQUE 46 mL/min/1.73m2 Critically low >=60 [facility] Comment on above: Performed By: #### U MICRO, ERUR #### [facility] [address] [address] [address] Delmer Rea EGFR-NON AF MONEGASQUE 38 mL/min/1.73m2 Critically low >=60 [facility] Comment on above: Performed By: #### U MICRO, ERUR #### [facility] [address] [place] [address] Dr. Delmer Rea Glucose [Mass/Vol] 314 mg/dL Critically high 74-106 [facility] Comment on above: Performed By: #### U MICRO, ERUR #### [facility] [address] [place] [address] Dr. Delmer Rea Potassium [Moles/Vol] 4.6 mmol/L Normal 3.5-5.1 [facility] Comment on above: Result Comment: spec imen slightly hemolyzed Performed By: #### U MICRO, ERUR #### [facility] [address] [place] [address] Dr. Delmer Rea Sodium [Moles/Vol] 133 mmol/L Critically low 136-[address] [facility] Comment on above: Performed By: #### U MICRO, ERUR #### [facility] [address] [place] [address] Dr. Delmer Rea Urea nitrogen [Mass/Vol] 35.0 mg/dL Critically high 7.0-18.0 [facility] Comment on above: Performed By: #### U MICRO, ERUR #### [facility] [address] [place] [address] Dr. Delmer Rea Urea nitrogen/Creatinine [Mass ratio] 24.1 mg/mg Normal [facility] Comment on above: Performed By: #### U MICRO, ERUR #### [facility] [address] [place] [address] Dr. Delmer Rea PTon 07-18-2022 INR Coag (PPP) [Relative time] 0.9 {INR} Normal [facility] Comment on above: Result Comment: Therapeutic Range: Moderate Anticoagulant Intensity: INR = 2.0-3.0 High Anticoagulant Intensity: INR = 2.5-3.5 Performed By: #### A NAX, IFX, PHEP, FKLLC, PE #### [facility] [employer] [address] [place] [id number] Medical Office Asst: Bala Skelton MD PT Coag (PPP) [Time] 10.0 s Normal 9.1-12.[address] [facility] Comment on above: Performed By: #### A NAX, IFX, PHEP, FKLLC, PE #### [facility] [address] [place], [place] [id number] Medical Office Asst: Bala Skelton MD Protime-INRon 07-18-2022 INR Coag (Bld) [Relative time] 0.9 {INR} [facility] Comment on above: Therapeutic Range: Moderate Anticoagulant Intensity: INR = 2.0-3.0 High Anticoagulant Intensity: INR = 2.5-3.5 PT Coag (PPP) [Time] 10 s [facility] URINE MICROSCOPIC ONLYon BACTERIA SMALL Abnormal NONE SEEN [facility] Comment on above: Performed By: #### U MICRO, ERUR #### [facility] [address] [place] [address] Dr. Delmer Rea Bacteria identified Cx Nom (U) INDICATED Normal [facility] Comment on above: Performed By: #### U MICRO, ERUR #### [facility] [address] [place] [address] Dr. Delmer Rea CAST NONE SEEN Normal NONE SEEN [facility] Comment on above: Performed By: #### U MICRO, ERUR #### [facility] [address] [place] [address] Dr. Delmer Rea Crystals LM Nom (Urine sed) NONE SEEN Normal NONE SEEN [facility] Comment on above: Performed By: #### U MICRO, ERUR #### [facility] [address] [place] [address] Dr. Delmer Rea Epithelial cells LM Ql (Urine sed) FEW Abnormal NONE SEEN /RARE [facility] Comment on above: Performed By: #### U MICRO, ERUR #### [facility] [address] [place] [address] Dr. Delmer Rea MUCOUS NONE SEEN Normal NONE SEEN [facility] Comment on above: Performed By: #### U MICRO, ERUR #### [facility] [address] [address] [address] Delmer Rea RBC 20-50 Abnormal 0-2 [facility] Comment on above: Performed By: #### U MICRO, ERUR #### [facility] [address] [address] [address] Delmer Rea WBC 10-20 Abnormal NONE SEEN [facility] Comment on above: Performed By: #### U MICRO, ERUR #### [facility] [address] [address] [address] Delmer Rea ALEXANDRE by IFAon 04-18-2022 Antinuclear Antibodies, IFA Negative Normal [facility] Comment on above: Result Comment: Nega tive <1:80 Borderline 1:80 Positive >1:80 ICAP nomenclature: AC-0 For more information about Hep-2 cell patterns use ANApatterns.org, the official website for the International Consensus on Antinuclear Antibody (ALEXANDRE) Patterns (ICAP). Performed By: #### U MICRO, ERUR #### [facility] [address] [place] [address] Dr. Delmer Rea ANTISTREPTOLYSIN O AB (ASO)o n 04-16-2022 Antistreptolysin O Ab 23.8 IU/mL Normal 0.0-200.0 [facility] Comment on above: Performed By: #### U MICRO, ERUR #### [facility] [address] [place] [address] Dr. Delmer Rea INSULINon 04-16-2022 Insulin 96.9 uIU/mL Critically high 2.6-24.9 [facility] Comment on above: Performed By: #### L IPA, DLDL, CON, LIPID, T7, CMP, TSH #### [facility] [address] [place] [address] Dr. Delmer Rea RHEUMATOID FACTORon 04-16-20 RA Latex Turbid. 13.5 IU/mL Normal <14.0 [facility] Comment on above: Performed By: #### L IPA, DLDL, CON, LIPID, T7, CMP, TSH #### [facility] [address] [place] [address] Dr. Delmer Rea BNPon 04-15-2022 Natriuretic peptide B (Bld) [Mass/Vol] 168.0 pg/mL Normal <=900.0 [facility] Comment on above: Performed By: #### L IPA, DLDL, CON, LIPID, T7, CMP, TSH #### [facility] [address] [place] [address] Dr. Delmer Rea CBC AUTO DIFFon 04-15-2022 BASO # 0.0 103/ul Normal 0.0-0.1 [facility] Comment on above: Performed By: #### L IPA, DLDL, CON, LIPID, T7, CMP, TSH #### [facility] [address] [place] [address] Dr. Delmer Rea Basophils/100 WBC (Bld) 0.4 % Normal 0.2-2.0 [facility] Comment on above: Performed By: #### L IPA, DLDL, CON, LIPID, T7, CMP, TSH #### [facility] [address] [place] [address] Dr. Delmer Rea EO # 0.1 103/ul Normal 0.0-0.7 [facility] Comment on above: Performed By: #### L IPA, DLDL, CON, LIPID, T7, CMP, TSH #### [facility] [address] [place] [address] Dr. Delmer Rea Eosinophils/100 WBC (Bld) 2.3 % Normal 0.9-7.0 [facility] Comment on above: Performed By: #### L IPA, DLDL, CON, LIPID, T7, CMP, TSH #### [facility] [address] [place] [address] Dr. Delmer Rea Erythrocyte distribution width (RBC) [Ratio] 11.9 % Normal 11.0-15.0 [facility] Comment on above: Performed By: #### L IPA, DLDL, CON, LIPID, T7, CMP, TSH #### [facility] [address] [place] [address] Dr. Delmer Rea Hematocrit (Bld) [Volume fraction] 37.8 % Normal 36.0-48.0 [facility] Comment on above: Performed By: #### L IPA, DLDL, CON, LIPID, T7, CMP, TSH #### [facility] [address] [place] [address] Dr. Delmer Rea Hemoglobin (Bld) [Mass/Vol] 12.7 g/dL Normal 12.0-16.0 [facility] Comment on above: Performed By: #### L IPA, DLDL, CON, LIPID, T7, CMP, TSH #### [facility] [address] [place] [address] Dr. Delmer Rea IG # 0.01 10e3/ul Normal 0.00-0.03 [facility] Comment on above: Performed By: #### L IPA, DLDL, CON, LIPID, T7, CMP, TSH #### [facility] [address] [place] [address] Dr. Delmer Rea IG % 0.2 % Normal 0.0-0.5 [facility] Comment on above: Performed By: #### L IPA, DLDL, CON, LIPID, T7, CMP, TSH #### [facility] [address] [place] [address] Dr. Delmer Rea LYMPH # 1.8 103/ul Normal 1.2-3.8 [facility] Comment on above: Performed By: #### L IPA, DLDL, CON, LIPID, T7, CMP, TSH #### [facility] [address] [place] [address] Dr. Delmer Rea Lymphocytes/100 WBC (Bld) 34.6 % Normal 20.5-60.0 [facility] Comment on above: Performed By: #### L IPA, DLDL, CON, LIPID, T7, CMP, TSH #### [facility] [address] [place] [address] Dr. Delmer Rea MANUAL DIFF REQ NO Normal [facility] Comment on above: Performed By: #### L IPA, DLDL, CON, LIPID, T7, CMP, TSH #### [facility] [address] [place] [address] Dr. Delmer Rea MCH (RBC) [Entitic mass] 28.7 pg Normal 26.7-34.0 [facility] Comment on above: Performed By: #### L IPA, DLDL, CON, LIPID, T7, CMP, TSH #### [facility] [address] [place] [address] Dr. Delmer Rea MCHC (RBC) [Mass/Vol] 33.6 g/dL Normal 29.9-35.2 [facility] Comment on above: Performed By: #### L IPA, DLDL, CON, LIPID, T7, CMP, TSH #### [facility] [address] [place] [address] Dr. Delmer Rea MCV (RBC) [Entitic vol] 85.5 fL Normal 81.0-99.0 [facility] Comment on above: Performed By: #### L IPA, DLDL, CON, LIPID, T7, CMP, TSH #### [facility] [address] [place] [address] Dr. Delmer Rea MONO # 0.5 103/ul Normal 0.3-0.8 [facility] Comment on above: Performed By: #### L IPA, DLDL, CON, LIPID, T7, CMP, TSH #### [facility] [address] [place] [address] Dr. Delmer Rea Monocytes/100 WBC (Bld) 8.6 % Normal 1.7-12.0 [facility] Comment on above: Performed By: #### L IPA, DLDL, CON, LIPID, T7, CMP, TSH #### [facility] [address] [place] [address] Dr. Delmer Rea NEUT # 2.8 103/ul Normal 1.4-6.5 [facility] Comment on above: Performed By: #### L IPA, DLDL, CON, LIPID, T7, CMP, TSH #### [facility] [address] [place] [address] Dr. Delmer Rea Neutrophils/100 WBC (Bld) 53.9 % Normal 43.0-75.0 [facility] Comment on above: Performed By: #### L IPA, DLDL, CON, LIPID, T7, CMP, TSH #### [facility] [address] [address] [address] Delmer Rea Platelet mean volume (Bld) [Entitic vol] 10.2 fL Normal 9.5-13.5 [facility] Comment on above: Performed By: #### L IPA, DLDL, CON, LIPID, T7, CMP, TSH #### [facility] [address] [address] [address] Delmer Rea PLT 326 103/ul Normal 150-450 [facility] Comment on above: Performed By: #### L IPA, DLDL, CON, LIPID, T7, CMP, TSH #### [facility] [address] [address] [address] Delmer Rea RBC 4.42 106/ul Normal 4.20-5.40 [facility] Comment on above: Performed By: #### L IPA, DLDL, CON, LIPID, T7, CMP, TSH #### [facility] [address] [place] [address] Dr. Delmer Rea WBC 5.2 103/ul Normal 4.0-11.0 [facility] Comment on above: Performed By: #### L IPA, DLDL, CON, LIPID, T7, CMP, TSH #### [facility] Laboratory [address] [place] [address] Dr. Delmer Rea CRPon 04-15-2022 CRP [Mass/Vol] mg/L Normal <=1.0 [facility] Comment on above: Performed By: #### L IPA, DLDL, CON, LIPID, T7, CMP, TSH #### [facility] [address] [place] [address] Dr. Delmer Rea FREE THYROXINE INDEX T7on FTI 5.07 Critically high 1.30-4.50 The [facility] Comment on above: Performed By: #### L IPA, DLDL, CON, LIPID, T7, CMP, TSH #### [facility] [address] [place] [address] Dr. Delmer Rea T3U 37.0 % Normal 30.0-39.0 [facility] Comment on above: Performed By: #### L IPA, DLDL, CON, LIPID, T7, CMP, TSH #### [facility] [address] [address] [address] Delmer Rea T4 [Mass/Vol] 13.70 ug/dL Normal 4.80-13.90 [facility] Comment on above: Performed By: #### L IPA, DLDL, CON, LIPID, T7, CMP, TSH #### [facility] [address] [address] [address] Delmer Rea GLYCOHEMOGLOBIN A1Con 2021 ADA RECOMMENDATION SEE BELOW Normal [facility] Comment on above: Result Comment: ADA RECOMMENDED LIMIT 4.0 - 6.0 ADA THERAPEUTIC TARGET < 7.0 ACTION SUGGESTED > 7.0 Performed By: #### L IPA, DLDL, CON, LIPID, T7, CMP, TSH #### [facility] [address] [place] [address] Dr. Delmer Rea Glucose [Mass/Vol] 174 mg/dL Normal [facility] Comment on above: Performed By: #### L IPA, DLDL, CON, LIPID, T7, CMP, TSH #### [facility] [address] [address] [address] Delmer Rea HbA1c (Bld) [Mass fraction] 7.7 % Critically high 4.5-6.2 [facility] Comment on above: Performed By: #### L IPA, DLDL, CON, LIPID, T7, CMP, TSH #### [facility] [address] [address] [address] Delmer Rea IRONon 04-15-2022 Iron [Mass/Vol] 84.0 ug/dL Normal 50.0-170.0 [facility] Comment on above: Performed By: #### U MICRO, ERUR #### [facility] [address] [address] [address] Delmer Rea LIPID PROFILEon 04-15-2022 CHOL-HDL RATIO NORM SEE BELOW Normal [facility] Comment on above: Result Comment: 3.3 - 4.4 LOW RISK 4.4 - 7.1 AVERAGE RISK 7.1 - 11.0 MODERATE RISK >11.0 HIGH RISK Performed By: #### L IPA, DLDL, CON, LIPID, T7, CMP, TSH #### [facility] [address] [address] [address] Delmer Rea Cholesterol [Mass/Vol] 239 mg/dL Critically high <=200 [facility] Comment on above: Performed By: #### L IPA, DLDL, CON, LIPID, T7, CMP, TSH #### [facility] [address] [address] [address] Delmer Rea Cholesterol in HDL [Mass/Vol] 43 mg/dL Normal 40-60 [facility] Comment on above: Performed By: #### L IPA, DLDL, CON, LIPID, T7, CMP, TSH #### [facility] [address] [address] [address] Delmer Rea Cholesterol in LDL [Mass/Vol] 131.8 mg/dL Normal [facility] Comment on above: Performed By: #### L IPA, DLDL, CON, LIPID, T7, CMP, TSH #### [facility] [address] [address] [address] Delmer Rae Cholesterol.total/Ch olesterol in HDL [Mass ratio] 5.6 {ratio} Normal [facility] Comment on above: Performed By: #### L IPA, DLDL, CON, LIPID, T7, CMP, TSH #### [facility] [address] [address] [address] Delmer Rea HDL NORMAL > or = 60 mg/dl - LO W CARDIOVASCULAR RISK <40 mg/dl - HIGH CARDIOVASCULAR RISK Normal [facility] Comment on above: Performed By: #### L IPA, DLDL, CON, LIPID, T7, CMP, TSH #### [facility] [address] [address] [address] Delmer Rea LDL CALC NORMAL SEE BELOW Normal [facility] Comment on above: Result Comment: <100 mg/dl OPTIMAL 100 - 129 mg/dl NEAR OR ABOVE OPTIMAL 130 - 159 mg/dl BORDERLINE HIGH 160 - 189 mg/dl HIGH >190 mg/dl VERY HIGH Performed By: #### L IPA, DLDL, CON, LIPID, T7, CMP, TSH #### [facility] [address] [address] [address] Delmer Rea Triglyceride [Mass/Vol] 321 mg/dL Critically high <=150 [facility] Comment on above: Performed By: #### L IPA, DLDL, CON, LIPID, T7, CMP, TSH #### [facility] [address] [address] [address] Delmer Rea VLDL CALC 64.2 mg/dL Normal [facility] Comment on above: Performed By: #### L IPA, DLDL, CON, LIPID, T7, CMP, TSH #### [facility] [address] [address] [address] Delmer Rea PROF 14(COMP METB)on 022 Albumin [Mass/Vol] 3.6 g/dL Normal 3.4-5.0 [facility] Comment on above: Performed By: #### L IPA, DLDL, CON, LIPID, T7, CMP, TSH #### [facility] [address] [place] [address] Dr. Delmer Rea Albumin/Globulin [Mass ratio] 0.9 {ratio} Normal [facility] Comment on above: Performed By: #### L IPA, DLDL, CON, LIPID, T7, CMP, TSH #### [facility] [address] [place] [address] Dr. Delmer Rea ALP [Catalytic activity/Vol] 98 U/L Normal 46-116 [facility] Comment on above: Performed By: #### L IPA, DLDL, CON, LIPID, T7, CMP, TSH #### [facility] [address] [address] [address] Delmer Rea ALT [Catalytic activity/Vol] 21 U/L Normal 14-59 [facility] Comment on above: Performed By: #### L IPA, DLDL, CON, LIPID, T7, CMP, TSH #### [facility] [address] [address] [address] Delmer Rea Anion gap [Moles/Vol] 15.8 mmol/L Normal [facility] Comment on above: Performed By: #### L IPA, DLDL, CON, LIPID, T7, CMP, TSH #### [facility] [address] [address] [address] Delmer Rea AST [Catalytic activity/Vol] 10 U/L Critically low 15-37 [facility] Comment on above: Performed By: #### L IPA, DLDL, CON, LIPID, T7, CMP, TSH #### [facility] [address] [address] [address] Delmer Rea Bilirubin [Mass/Vol] 0.6 mg/dL Normal 0.2-1.0 [facility] Comment on above: Performed By: #### L IPA, DLDL, CON, LIPID, T7, CMP, TSH #### [facility] [address] [address] [address] Delmer Rea Calcium [Mass/Vol] 9.4 mg/dL Normal 8.5-10.1 [facility] Comment on above: Performed By: #### L IPA, DLDL, CON, LIPID, T7, CMP, TSH #### [facility] [address] [address] [address] Delmer Rea Chloride [Moles/Vol] 105 mmol/L Normal 98-107 [facility] Comment on above: Performed By: #### L IPA, DLDL, CON, LIPID, T7, CMP, TSH #### [facility] [address] [address] [address] Delmer Rea CO2 [Moles/Vol] 26.2 mmol/L Normal 21.0-32.0 The [facility] Comment on above: Performed By: #### L IPA, DLDL, CON, LIPID, T7, CMP, TSH #### [facility] [address] [place] [address] Dr. Delmer Rea Creatinine [Mass/Vol] 1.26 mg/dL Critically high 0.55-1.02 [facility] Comment on above: Performed By: #### L IPA, DLDL, CON, LIPID, T7, CMP, TSH #### [facility] [address] [address] [address] Delmer Rea EGFR-AF MONEGASQUE 54 mL/min/1.73m2 Critically low >=60 [facility] Comment on above: Performed By: #### L IPA, DLDL, CON, LIPID, T7, CMP, TSH #### [facility] [address] [place] [address] Dr. Delmer Rea EGFR-NON AF MONEGASQUE 45 mL/min/1.73m2 Critically low >=60 [facility] Comment on above: Performed By: #### L IPA, DLDL, CON, LIPID, T7, CMP, TSH #### [facility] [address] [place] [address] Dr. Delmer Rea Globulin (S) [Mass/Vol] 3.9 g/dL Normal [facility] Comment on above: Performed By: #### L IPA, DLDL, CON, LIPID, T7, CMP, TSH #### [facility] [address] [place] [address] Dr. Delmer Rea Glucose [Mass/Vol] 125 mg/dL Critically high 74-106 [facility] Comment on above: Performed By: #### L IPA, DLDL, CON, LIPID, T7, CMP, TSH #### [facility] [address] [place] [address] Dr. Delmer Rea Potassium [Moles/Vol] 4.0 mmol/L Normal 3.5-5.1 [facility] Comment on above: Performed By: #### L IPA, DLDL, CON, LIPID, T7, CMP, TSH #### [facility] [address] [place] [address] Dr. Delmer Rea Protein [Mass/Vol] 7.5 g/dL Normal 6.4-8.2 [facility] Comment on above: Performed By: #### L IPA, DLDL, CON, LIPID, T7, CMP, TSH #### [facility] [address] [place] [address] Dr. Delmer Rea Sodium [Moles/Vol] 143 mmol/L Normal 136-145 [facility] Comment on above: Performed By: #### L IPA, DLDL, CON, LIPID, T7, CMP, TSH #### [facility] [address] [place] [address] Dr. Delmer Rea Urea nitrogen [Mass/Vol] 34.0 mg/dL Critically high 7.0-18.0 [facility] Comment on above: Performed By: #### L IPA, DLDL, CON, LIPID, T7, CMP, TSH #### [facility] [address] [address] [address] Delmer Rea Urea nitrogen/Creatinine [Mass ratio] 27.0 mg/mg Normal [facility] Comment on above: Performed By: #### L IPA, DLDL, CON, LIPID, T7, CMP, TSH #### [facility] [address] [place] [address] Dr. Delmer Rea TSHon 04-15-2022 TSH 0.009 uIU/mL Critically low 0.358-3.740 [facility] Comment on above: Performed By: #### L IPA, DLDL, CON, LIPID, T7, CMP, TSH #### [facility] [address] [place] [address] Dr. Delmer Rea TSH RANGE SEE BELOW Normal [facility] Comment on above: Result Comment: <0.3 4 UIU/ml HYPERTHYROID 0.34-5.60 UIU/ml EUTHYROID >5.60 UIU/ml HYPOTHYROID Performed By: #### L IPA, DLDL, CON, LIPID, T7, CMP, TSH #### [facility] [address] [place] [address] Dr. Delmer Rea URIC ACID SERUMon 04-15-2022 Urate [Mass/Vol] 7.1 mg/dL Critically high 2.6-6.0 [facility] Comment on above: Performed By: #### L IPA, DLDL, CON, LIPID, T7, CMP, TSH #### [facility] [address] [place] [address] Dr. Delmer Rea VITAMIN D 25 OHon 04-15-2022 VIT D 25-OH 23.8 ng/mL Normal [facility] Comment on above: Performed By: #### U MICRO, ERUR #### [facility] [address] [place] [address] Dr. Delmer Rea VIT D RANGES SEE BELOW Normal [facility] Comment on above: Result Comment: <20 ng/mL Vit D deficient 20 - <30 ng/mL Vit D insufficient 30 - 100 ng/mL Vit D sufficient >100 ng/mL Potential Toxicity Performed By: #### U MICRO, ERUR #### [facility] [address] [address] [address] Delmer Bowman 11-09-2021 CNPN Telephone (GENBMI) ASA THOMPSON ([id number]) 1970 F Date Time Provider Department 11/09/21 [...] Encounter Status:Closed by ABRAHAM PACHECO on 11/09/21 [facility]-20[facility] ASA TH[facility] ([id number]) 1970 F Date Time Provider Department 10/05/21 ABRAHAM PACHECO [facility] During your visit today, we recorded the [...] Encounter Status:Closed by ABRAHAM PACHECO on 10/05/21 [facility] 07-29-2021 [facility] ([facility]) LUCASA SPANN ([id number]) 1970 F Date Time Provider Department 07/29/21 [...] Encounter Status:Closed by ABRAHAM PAC[facility]CO [facility]29[facility] CNPN Telephone ([employer]) ASA THOMPSON ([id number]) 1970 F Date Time Provider [facility] visit [facility], we recorded the following information about you: Abraham Pacheco RN 07/14/2021 3:04 PM Addendum Follow up call placed to patient, no answer phone; left voice message with my call back phone number. [phone] Cancelled surgery scheduled for 07/15/21. No call [...] Status:Closed by ABRAHAM PACHECO on 07/14/21 Normal [facility] Telephone (GSPSMN) ASA THOMPSON ([id number]) 1970 F Date Time Provider Department 07/14/21 JEANNINE TAMEZ [facility] During your visit today, we recorded the following information about you: Jeannine Tamez, PhD 07/14/2021 1:02 PM Signed [facility] Attempted to contact [...] Encounter Status:Closed by JEANNINE TAMEZ on 07/14/21 [facility] CNPN Telephone (GENBMI) ASA THOMPSON ([id number]) 1970 F Date Time Provider Department 07/13/21 [...] Encounter Status:Closed by ABRAHAM PACHECO on 07/13/21 [facility] 07-08-2021 [facility] (GENBMI) ASA THOMPSON ([id number]) 1970 F Date Time Provider Department 07/08/21 [...] Encounter Status:Closed by ABRAHAM PACHECO on [facility]/15/21 [facility]) ASA THOMPSON ([id number]) 1970 F Date Time Provider Department 07/08/21 ABRAHAM PACHECO [employer] During your visit today, we recorded the [...] Encounter Status:Closed by ABRAHAM PACHECO on 07/08/21 [facility] 07-07-2021 [facility] ASA [id number]) 1970 F Date Time Provider Department 07/07/21 [...] Encounter Status:Closed by ABRAHAM PACHECO on 07/07/21 [facility] CNPN Telephone ([employer]) ASA THOMPSON ([id number]) 1970 F Date Time Provider Department 07/05/21 ABRAHAM PACHECO [facility] During your visit today, we recorded the [...] Encounter Status:Closed by ABRAHAM PACHECO on 07/06/21 [facility] 06-21-2021 [facility] ([employer]) ASA THOMPSON ([id number]) 1970 F Date Time Provider Department 06/21/21 [...] arrival time. Other Instructions Reviewed: Gave patient [phone] My Chart Support line phone number Skin [...] may take two Extra Strength Tylenol. Abraham Pachceo RN Allergies As of Date: 06/21/2021 Noted [...] daily. - (more content not included)... [facility] C[facility]N Tele[facility] (GENBMI) ASA THOMPSON ([id number]) 1970 F Date Time Provider Department 05/25/21 ABRAHAM PACHECO [employer] During your visit today, we recorded the following information about you: Abraham Pacheco RN 05/25/2021 4:23 PM Signed [facility] COORDINATION SURGERY APPROVAL CALL Received e-mail confirmation of insurance approval for bariatric surgery.Pre-operative call placed to the patient, this RN spoke with patient and agreed upon a surgery date of July 15 2021. Surgical episode request sent to [facility] surgery scheduling. -Patient instructed to start [...] instructed to fax FMLA forms to medical record librarian and allow 7-10 days for completion. Radha [...] Status:Closed by ABRAHAM PACHECO on 05/25/21 Normal [facility] 04-26-2021 CNCO Letter Text Normal [facility] CNCOon 04-21-2021 CNCO Letter Text Normal [facility] CNCOon 04-12-2021 CNCO Letter Text Normal [facility] Vital Signs Date Time Vital Sign Value Performing Clinician Facility 12-27-2022 15:00-0500 Body height 160.02 cm Aime Capone Other [employer] Other 12-27-2022 15:00-0500 Body mass index (BMI) [Ratio] 44.63 kg/m2 Aime Capone Other [employer] Other 12-27-2022 15:00-0500 Body weight 114.31 kg Aime Capone Other [employer] Other 12-27-2022 15:00-0500 Diastolic blood pressure 61 mm[Hg] Aime Capone Other [employer] Other 12-27-2022 15:00-0500 Respiratory rate 18 /min Aime Capone Other [employer] Other 12-27-2022 15:00-0500 SaO2% (BldA) [Mass fraction] 97 % Aime Capone Other [employer] Other 12-27-2022 15:00-0500 Systolic blood pressure 127 mm[Hg] Aime Capone Other [employer] Other 07-26-2022 10:45-0400 Body temperature 98.2 [degF] Bishnu Horner MD Work Phone: [facility] 07-26-2022 10:45-0400 Diastolic blood pressure 65 mm[Hg] Bishnu Horner MD Work Phone: [facility] 07-26-2022 10:45-0400 Heart rate 84 /min Bishnu Horner MD Work Phone: [facility] 07-26-2022 10:45-0400 Respiratory rate 16 /min Bishnu Horner MD Work Phone: [facility] 07-26-2022 10:45-0400 SaO2% (BldA) [Mass fraction] 98 % Bishnu Horner MD Work Phone: [facility] 07-26-2022 10:45-0400 Systolic blood pressure 161 mm[Hg] Bishnu Horner MD Work Phone: [facility] [employer] 07-25-2022 18:02-0400 Body height 165.1 cm Bishnu Horner MD Work Phone: [facility] 07-25-2022 18:02-0400 Body mass index (BMI) [Ratio] 39.94 kg/m2 Bishnu Horner MD Work Phone: [facility] 07-25-2022 18:02-0400 Body weight 108.86 kg Bishnu Horner MD Work Phone: [facility] [employer] 07-22-2022 11:28-0400 Body temperature 98.2 [degF] Aime Bird MD [facility] [email or web address] 07-22-2022 11:28-0400 Diastolic blood pressure 72 mm[Hg] Aime Bird MD [facility] [employer] 07-22-2022 11:28-0400 Heart rate 92 /min Aime Bird MD [facility] [employer] 07-22-2022 11:28-0400 Respiratory rate 12 /min Aime Bird MD [facility] [email or web address] 07-22-2022 11:28-0400 SaO2% (BldA) [Mass fraction] 96 % Aime Bird MD [facility] [employer] 07-22-2022 11:28-0400 Systolic blood pressure 155 mm[Hg] Aime Bird MD [facility] [employer] 07-18-2022 20:54-0400 Body height 165.1 cm Aime Bird MD [facility] [employer] 07-18-2022 20:54-0400 Body mass index (BMI) [Ratio] 42.56 kg/m2 Aime Bird MD [facility] [employer] 07-18-2022 20:54-0400 Body weight 116 kg Aime Bird MD [facility] [employer] Encounters Encounter Date Encounter Type Care Provider Facility Start: 11-01-2024 [facility]: 09-02-2024 End: 09-02-2024 ambulatory E[facility] Start: 08-03-2024 End: 08-06-2024 Evaluation and management of inpatient GARRY RAMOS [facility] Start: 03-10-2023 End: 03-11-2023 ambulatory AIME EDMONDSONS Facility:[facility] Start: 01-03-2023 ambulatory AIME CAPONE Facility:[facility] 1 Start: 12-28-2022 End: 12-29-2022 ambulatory AIME CAPONE Facility:[facility] Start: 12-27-2022 End: 12-27-2022 [facility] [employer] [facility] Start: 12-27-2022 Office [facility] ne w 30 [facility] Start: 12-01-2022 End: 12-02-[address] GARRY RAMOS . Facility:[facility] Start: 11-26-2022 End: 11-26-[address] GARRY RAMOS . Facility:[facility] Start: 11-25-2022 End: 11-26-[address] GARRY RAMOS . Facility:[facility] Start: 09-23-[address] GARRY RAMOS . Facili ty:[facility] Start: 09-12-2022 End: 09-12-[address] GARRY RAMOS . Facility:[facility] Start: 08-05-2022 End: 08-08-2022 ambulatory CHRISTIJARROD CHANCE [facility] Start: 07-25-2022 End: 07-26-2022 ambulatory GARRY RAMOS [facility] Start: 07-25-2022 End: 07-26-2022 Emergency department patient visit Bishnu Horner MD Work Phone: [facility] 3C Observation Comment on above: Nephrostomy complica tion (HCC) (Primary Dx) Start: 07-18-2022 End: 07-22-2022 Evaluation and management of inpatient CHINO DEMPSEY [facility] Start: 07-18-2022 End: 07-22-2022 Evaluation and management of inpatient Aime Bird MD [facility] 5C Stepdown Comment on above: Kidney stone (Primar y Dx); Acute pyelonephritis; Left renal atrophy; Staghorn renal calculus; OMAR (acute kidney injury) ([facility]) Start: 07-18-2022 End: 07-18-[address] GARRY RAMOS . Facility: Start: 04-15-2022 End: 04-16-[address] GARRY RAMOS . Facility: Start: 04-01-[address] GARRY RAMOS . Facili ty:[facility]1 Start: 02-15-2019 End: 02-22-2019 ambulatory GARRY RAMOS Facility:[facility] Procedures Date Procedure Procedure Detail Performing [...] K Brooklynn Ferrair MD Work Phone: Start: 07-20-2022 Blood gases [...] Infectious Diseases Urban Noriega MD [address] [place] [address] [facility]. Start: 08-03-2022 End: 07-20-2023 NM KIDNEY W FLOW AND FUNCTION W PHARMACOLOGICAL INTERVENTION NM KIDNEY W FLOW AND FUNCTION W PHARMACOLOGICAL INTERVENTION Imaging Routine Left renal atrophy Staghorn renal calculus Expected: 08/03/2022, Expires: 07/20/2023 [facility] Work Phone: Comment on above: Expected: 08/03/2022 , Expires: 07/20/2023 Start: 07-29-2022 End: 07-22-2023 Basic metabolic 2000 panel - Serum or Plasma Basic Metabolic Panel Lab Routine OMAR (acute kidney injury) (HCC) Expected: 07/29/2022, Expires: 07/22/2023 [facility] Work Phone: Comment on above: Expected: 07/29/2022 , Expires: 07/22/2023 Start: 07-07-2022 Influenza vaccination Flu vaccine (# 1) [facility] Start: 2021 Screening for malign ant neoplasm of breast Breast cancer screen [facility] Start: 2021 Shingles vaccine (1 of 2) Shingles vaccine (1 of 2) [facility] Start: 2016 Screening for malign ant neoplasm of colon [facility] Start: 2001 Screening for malign ant neoplasm of cervix [facility] Start: 1992 Screening for malign ant neoplasm of cervix Pap smear [facility] Start: 1990 DTaP/Tdap/Td vaccine (1 - Tdap) DTaP/Tdap/Td vaccine (1 - Tdap) [facility] Start: 1990 Hepatitis B vaccine (1 of 3 - Risk 3-dose series) Hepatitis B vaccine (1 of 3 - Risk 3-dose series) [facility] Start: 1989 Diabetic retinal exam Diabetic retin al exam [facility] Start: 1989 Urine screening for protein Diabetic microalbuminuria test [facility] Start: 1986 HIV screening HIV screen [facility] [employer] Start: 1983 Depression Monitoring Depression Mon itoring [facility] Start: 1981 Diabetic foot examination Diabetic foot exam [facility] Start: 1981 Hemoglobin A1c measurement A1C test (Diabetic or Prediabetic) [facility] Start: 1981 Lipid panel Lipids [facility] [employer] Start: 1977 Pneumococcal 0-64 ye ars Vaccine (1 - PCV) Pneumococcal 0-64 years Vaccine (1 - PCV) [facility] Start: 03-26-1972 COVID-19 Vaccine (#1) COVID-19 Vacci ne (#1) [facility] End: 08-01-2022 Basic Metabolic Panel w/ Reflex to MG Basic Metabolic Panel w/ Reflex to MG Lab Routine Daily for 14 Occurrences starting 07/19/2022 until 08/01/2022, 3 completed [facility] [employer] Work Phone: Comment on above: Daily for 14 Occurre nces starting 07/19/2022 until 08/01/2022, 3 completed Culture, Blood 1 [facility] [employer] Work Phone: Culture, Blood 1 Culture, Blood 1 Microbiology STAT 07/20/2022 4:26 AM EDT [facility] [id number] Phone: Culture, Blood 1 [facility] [employer] Work Phone: Culture, Blood 2 Culture, Blood 2 Microbiology STAT 07/20/2022 4:26 AM EDT [employer] Phone: Glucose [Mass/volume ] in Serum or Plasma [employer] Phone: Comment on above: 4X Daily (AC & HS) u ntil discontinued starting 07/18/2022, 1 completed As Needed until disc ontinued starting 07/18/2022 Glucose [Mass/volume ] in Serum or Plasma POCT Glucose Point of Care Testing STAT As Needed until discontinued starting 07/26/2022 [employer] Phone: Comment on above: As Needed until disc ontinued starting 07/26/2022 Oxygen therapy [Mini mum Data Set] Initiate Oxygen Therapy Protocol Respiratory Care Routine As Needed until discontinued starting 07/18/2022 [employer] Phone: Comment on above: As Needed until disc ontinued starting 07/18/2022 Oxygen therapy [Mini mum Data Set] Initiate Oxygen Therapy Protocol Respiratory Care Routine Daily until discontinued starting 07/25/2022 [employer] Phone: Comment on above: Daily until disconti nued starting 07/25/2022 Immunizations Immunization Date Immunization Notes Care Provider Rick mcginnis 08-19-2016 tetanus toxoid, reduced diphtheria toxoid, and acellular pertussis vaccine, adsorbed Aziz Bakhous Other [employer] Other Payers Date Payer Category Payer Unknown [id number] 2.16.8 [id number] 1970 Unknown [id number] 2.16.8 [id number] 1971 Unknown [id number] 2.16. [id number] 1971 Unknown [id number] 2.16. 840.1.751981.3.579.2.175 1971 Unknown [id number] 2.16.84 0.1.282957.3.579.2.593 1971 Unknown [id number] 2.16.84 0.1.847026.3.579.2.593 1971 Unknown [id number] 2.16.84 0.1.552533.3.579.2.593 1971 Unknown [id number] 2.16.84 0.1.559586.3.579.2.593 1971 Unknown [id number] 2.16.84 0.1.958793.3.579.2.593 1971 Unknown [id number] 2.16.84 0.1.940465.3.579.2.593 1971 Unknown [id number] 2.16.84 0.1.875473.3.579.2.593 1971 Unknown [id number] 2.16.84 0.1.098793.3.579.2.593 1971 Unknown [id number] 2.16.84 0.1.657539.3.579.2.593 1971 Unknown [id number] 2.16.84 0.1.812631.3.579.2.593 1971 Unknown [id number] 2.16.84 0.1.882519.3.579.2.593 1971 Unknown [id number] 2.16.8 40.1.512815.3.579.2.1286 1959 Self-pay [id number] 1959 Unknown [id number] 1958 Unknown [id number] Self-pay Self Pay [id number] Unknown [id number] Social History Date Type Detail Facility Tobacco smoking status WYIS Unknown if ever smoked [facility] Start: 1970 Sex Assigned At Female F [facility] Tobacco smoking status NHIS Tobacco smoking consumption unknown [employer] [employer] Phone: Start: 1970 Sex Assigned At Not on file B ON [employer] Phone: Start: 07-08-2022 End: 07-25-2022 Exposure to SARS-CoV-2 (event) Not sure JAYDEN [employer] Sex Assigned At Sex Assigned At Bir th [facility] [employer] Other Goals Date Patient Goal Desired Activity [...] procedure. All questions were addressed and answered. [facility] Cardiology Clinic Note Chief Complaint: New patient here to establish care. Ref from Dr. Ramos for abnormal echo performed at [facility] last month while inpatient. She was [...] complication, with long-term current use of insulin ([facility]) Essential hypertension Mixed hyperlipidemia Complicated headache syndromes Hyperglycemia OMAR (acute kidney injury) ([facility]) Vision changes Hypomagnesemia Cerebrovascular accident (CVA) due to embolism of precerebral artery ([facility]) Update 09/02/2024: She has had no further [...] of left kidney, CVA (cerebral vascular accident) ([facility]) (2021), Diabetes mellitus ([facility]), and Kidney stone. Surgical History She has [...] 70/30 U-100 I (more content not included)... [facility] 11-01-2024 Note Patient: Asa valle Procedure Information Date/Time: 11/01/24 1030 Procedure: TRANSESOPHAGEAL ECHO (ANGEL) Location: [facility] Vascular Lab Clinical information reviewed: Allergies Meds Physical Exam Airway Mallampati: III TM distance: >3 FB Neck ROM: full Cardiovascular Rhythm: regular Rate: normal Dental Pulmonary Breath sounds clear to auscultation Abdominal Anesthesia Plan Additional Equipment Requests [facility] 09-02-2024 Note [facility] Cardiology Clinic Note Chief Complaint: New patient here to establish care. Ref from Dr. Ramos for abnormal echo performed at [facility] last month while inpatient. She was [...] Asa Thompson Date of : 1970 Room: [facility] Encounter date: 08/06/24 Hospital Day: 4 DATE OF ADMISSION: 08/03/2024 DATE OF DISCHARGE:08/06/2024 DISCHARGE DIAGNOSES Principal Problem: Acute nonintractable headache, unspecified headache type Active Problems: Type 2 diabetes mellitus with neurologic complication, with long-term current use of insulin ([facility]) Essential hypertension Mixed hyperlipidemia Complicated headache syndromes Hyperglycemia OMAR (acute kidney injury) ([facility]) Vision changes Hypomagnesemia Cerebrovascular accident (CVA) due to embolism of precerebral artery ([facility]) Update 09/02/2024: She has had no further [...] , Rfl: met (more content not included)... [facility] 12-27-2022 Evaluation note Encounter Date Diagnosis [...] pyonephritis. Patient follows with urology clinic at [facility] Dec, Solitary kidney, acquired (ICD-10 - [...] home and to follow a low-salt diet [employer] Other 09-20-2022 NotePROCEDURE: MARTINE LILLY NEPHROSTMY CATH [...] detailed explanation of the procedure including risks. Ellington protocol was observed. Sterile gowns, masks, hats and gloves utilized for maximal sterile barrier. The patient was placed in the prone position on the fluoroscopy table, and the existing left nephroureteral stent and flank were prepped and draped in sterile manner. The stent tubing was noted to be broken with the lumen exposed near the level of the skin. A prosthetic dentist image demonstrated the distal loop approximating the [...] wire. Under fluoroscopic guidance, a new 8 Tanzanian x 22 cm nephroureteral stent was advanced over the wire; the distal loop formed in the bladder, but the proximal loop did not form in the renal pelvis. Therefore, this catheter was removed over wire, and a new 8 Tanzanian x 24 cm nephroureteral stent was advanced [...] Signed by: Bishnu Alan MD 07/26/22 [facility] NotePROCEDURE: IR CHG NEPHROSTMY CATH PROC 07/26/2022 [...] detailed explanation of the procedure including risks. Ellington protocol was observed. Sterile gowns, masks, hats and gloves utilized for maximal sterile barrier. The patient was placed in the prone position on the fluoroscopy table, and the existing left nephroureteral stent and flank were prepped and draped in sterile manner. The stent tubing was noted to be broken with the lumen exposed near the level of the skin. A prosthetic dentist image demonstrated the distal loop approximating the [...] wire. Under fluoroscopic guidance, a new 8 Tanzanian x 22 cm nephroureteral stent was advanced over the wire; the distal loop formed in the bladder, but the proximal loop did not form in the renal pelvis. Therefore, this catheter was removed over wire, and a new 8 Tanzanian x 24 cm nephroureteral stent was advanced over the wire. The distal loop formed in the expected position of the bladder, and the proximal loop partially formed in the renal pelvis. Contrast injection confirmed appropriate positioning. The stent was then attached to the skin with a 2-0 monofilament suture. The patient tolerated the procedure well. COMPLICATIONS: None immediately apparent MHPN RIS [id number] History of Present illness Narrative* Paloma Arceo MD - 07/26/2022 1:42 PM EDT [facility] CDU / OBSERVATION ENCOUNTER ATTENDING NOTE [...] going to IR this morning for replacement. [place] observation unit for nephrostomy tube placement. Patient reassessed on arrival to the floor. Paloma Arceo MD Attending Emergency Physician * Song Sharif - 07/26/2022 12:50 AM EDT SPIRITUAL CARE DEPARTMENT - [facility] [place]ESS [place] Shift date: 07.25.2022 Shift day: Monday Shift # 2 Room # 10/17 Name: Asa Thompson Sikh: unknown Place of jewish: unknown Referral: Routine Visit Admit Date & Time: 07/25/2022 5:43 PM Assessment: Asa Thompson is a 51 y.o. female in the hospital with pain. Upon entering the room typewriter assembly and parts inspector observes patient in pain and states that she is looking for a nurse to provide pain management. Patient appears to be coping otherwise. Intervention: Hired Worker introduced self and title as director cardiac Hired Worker offered space for the patient to express feelings, needs, and concerns and provided a ministry presence. Outcome: Patient requests nursing assistance for pain. Tool Machinist attempted to follow up with nursing staff. Plan: Chaplains will remain available to offer spiritual and emotional support as needed. . Spiritual Care Department [facility] [phone] 07/25/22 2310 Encounter Summary Service Provided For: [...] and concerns;Venting emotion documented in this encounterBON [employer] Work Phone: [phone] 641-823409-16-2022 History of Present illness Narrative* Christine Campa RN - 07/22/2022 4:32 PM EDT Hired Worker went over all discharge paperwork with patient and Shaq bedside. Patient denies any further questions or concerns at this time. Patient also has a BMP script to get done within 1 week and have results sent to PCP. Hired Worker also called [facility] pharmacy in [place] and verified E-prescriptions were sent. Patient also [...] Campa RN - 07/22/2022 3:47 PM EDT Hired Worker was unable to set up follow up appointment for Dr. Chino Dempsey (urologist) on discharge d/tthe office being closed. Hired Worker explained to the patient that she will [...] Patient : Asa Thompson; 51 y.o. Location: [facility] Attending: Livia Cantrell MD Admit Date: 07/18/2022 [...] Date/Time NITRU NEGATIVE 07/20/2022 03:05 PM COLORU [place] 07/20/2022 03:05 PM PHUR 5.0 07/20/2022 03:05 [...] as outpatient as well, patient lives near [facility] and will likely ask her PCP to get nephrological referral otherwise if she wants she can follow-up in the clinic with us as well. She should get BMP results done in 1 week and results faxed to PCP. Nutrition Please ensure that patient is on a renal diet/TF. Avoid nephrotoxic drugs/contrast exposure. Shahid Do MD [facility] This note is created with the assistance of a speech-recognition program. While intending to generate a document that actually reflects the content of the visit, no guarantees can be provided that every mistake has been identified and corrected by editing. * Urban Noriega MD - 07/22/2022 10:27 AM EDT Images from the original note were not included. [facility] - Progress Note Today's Date and [...] urine cultures: No growth Urine culture from [place]: E coli, multi-sensitive Patient will need treatment [...] lithotripsy in the future. Infection Control Recommendations Ellington Precautions Antimicrobial Stewardship Recommendations Simplification of therapy [...] is a 51-year-old female who presents to [facility] with a chief complaint of left flank pain that started at 4 AM on 07/18/2022. Patient states that the pain is intense and is radiating towards her left groin. Patient denies any fever, burning urination, urgency frequency, vomiting, loose stool, any shortness of breath or chest discomfort. Patient went to [place] and had a CT imaging done. 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 Urinalysis positive for leukocytes and nitrates and blood. White blood cell count 13.7 and creatinine of 1.45. Patient needed urology evaluation and nephrostomy tube placement . She was transferred to [facility]. Urology was consulted. Urology plan for IR [...] Blood and urine cultures: No growth at [facility] Urine culture at [place] with E coli Patient reports tolerating Cipro [...] Cultures: Urine: 07-18-22: E coli- Multi-sensitive at [place] 07/18/2022: No growth 07/19/2022: Urinalysis: Turbid, glucose [...] NEPHROSTOMY PERCUTANEOUS LEFT 07/19/2022 Noman Mullen MD [facility] SPECIAL PROCEDURES Medications: hydrALAZINE 25 mg [...] the procedure including risks, benefits, and alternatives. Ellington protocol was followed. The patient's flank was [...] into the urinary bladder using a 4 Tanzanian Kumpe the catheter; the Glidewire was exchanged [...] puncture of the lower pole calyx, 4 Tanzanian Kumpe the catheter manipulation and glidewire extension into the urinary bladder. Subsequent images show the nephroureteral stent in satisfactory position. Impression Successful percutaneous left nephroureteral stent placement via lower pole, past a large staghorn calculus, with distal pigtail tip position in the urinary bladder, as above. Findings were discussed with KASH CLAY at 4:09 pm on 07/19/2022. Medical Decision Ljyzbi-Bnwnxait-Khqdc: Medical Decision Making-Other: Note: Labs, medications, radiologic studies were reviewed with personal review of films Large amounts of data were reviewed Discussed with nursing Staff, nurse discharge planner Infection Control and Prevention measures reviewed All prior entries were reviewed Administer medications as ordered Prognosis: Good Discharge planning reviewed Follow up as outpatient. Thank you for allowing us to participate in the care of this patient. Please call with questions. Urban Noriega MD * Keo Guevara MD - 07/22/2022 7:45 AM EDT Physician Progress Note PATIENT: ASA THOMPSON CSN #: [id number] : 1970 ADMIT DATE: 07/18/2022 3:19 PM [...] Thank you, Judith LUNA,RN, CDI email - [email or web address] cell- [phone] office hours [id number] Options provided: -- Sepsis, [...] original note were not included. [facility] Internal Medicine Teaching Residency Program Inpatient Daily Progress Note Patient: Asa Thomposn Date of : 1970 Acct: [id number] Room: [address] [place] [address]- Admit date: 07/18/2022 Today's date: 07/22/22 Number [...] positive for E. Coli- multi sensitive at [place] Lactic acid-1.5-2.3 Urology on board-okay to be [...] breath or chest discomfort. 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 Patient needed urology evaluation and nephrostomy tube placement so transferred to the [facility]. Urology consulted plan for IR tomorrow. patient [...] Keo Guevara MD Internal Medicine Resident, PGY-1 [facility]; [place], [place] 07/22/2022, 7:44 AM Associated attestation - Livia Cantrell MD - 07/22/2022 2:02 PM EDT Attending Physician Statement I have discussed the case of Asa Thompson, including pertinent history and exam findings with the resident/fellow/medical student/RETREAD MOLD OPERATOR/PA. I have seen and examined the patient and the trevizo elementsof the encounter have been performed by me. I agree with the assessment, plan and orders as documented by the resident/fellow/medical student/RETREAD MOLD OPERATOR/PA With changes made to the note [...] been improving Microbiologic data remains negative at [facility] activity Percutaneous nephrostomy tube is draining [...] Date/Time NITRU NEGATIVE 07/20/2022 03:05 PM COLORU [place] 07/20/2022 03:05 PM PHUR 5.0 07/20/2022 03:05 [...] 07/21/2022 1:36 PM EDT Physical Therapy Facility/Department: [address] [facility] Physical Therapy Initial Assessment Name: [...] Ambulation Assistance: Independent Transfer Assistance: Independent Active Chemical Waste Management Technician: Yes Mode of Transportation: [facility] Occupation: Unemployed Leisure & Hobbies: Everything [...] 07/21/2022 12:07 PM EDT Occupational Therapy Facility/Department: [address] [facility] Occupational Therapy Initial Assessment Name: [...] Ambulation Assistance: Independent Transfer Assistance: Independent Active Chemical Waste Management Technician: Yes Mode of Transportation: SUV Occupation: Unemployed [...] were not included. [facility] - Progress Note Today's Date and [...] up to a week. Infection Control Recommendations Ellington Precautions Antimicrobial Stewardship Recommendations Simplification of therapy [...] is a 51-year-old female who presents to [facility] with a chief complaint of left flank pain that started at 4 AM on 07/18/2022. Patient states that the pain is intense and is radiating towards her left groin. Patient denies any fever, burning urination, urgency frequency, vomiting, loose stool, any shortness of breath or chest discomfort. Patient went to [place] and had a CT imaging done. 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 Urinalysis positive for leukocytes and nitrates and blood. White blood cell count 13.7 and creatinine of 1.45. Patient needed urology evaluation and nephrostomy tube placement . She was transferred to [facility]. Urology was consulted. Urology plan for IR [...] hyperglycemia, without long-term current use of insulin ([facility]) Past Surgical History: Past Surgical History: Procedure Laterality Date IR NEPHROSTOMY PERCUTANEOUS LEFT 07/19/2022 IR NEPHROSTOMY PERCUTANEOUS LEFT 07/19/2022 Noman Mullen MD [facility] Medications: insulin lispro 0-16 Units [...] the procedure including risks, benefits, and alternatives. Ellington protocol was followed. The patient's flank was [...] into the urinary bladder using a 4 Tanzanian Kumpe the catheter; the Glidewire was exchanged [...] puncture of the lower pole calyx, 4 Tanzanian Kumpe the catheter manipulation and glidewire extension into the urinary bladder. Subsequent images show the nephroureteral stent in satisfactory position. Impression Successful percutaneous left nephroureteral stent placement via lower pole, past a large staghorn calculus, with distal pigtail tip position in the urinary bladder, as above. Findings were discussed with KASH CLAY at 4:09 pm on 07/19/2022. Medical Decision Aglvwi-Vepqmzxa-Nxszy: Medical Decision Making-Other: Note: Labs, medications, radiologic studies were reviewed with personal review of films Large amounts of data were reviewed Discussed with nursing Staff, nurse discharge planner Infection Control and Prevention measures reviewed [...] original note were not included. [facility] Internal Medicine Teaching Residency Program Inpatient Daily Progress Note Patient: Asa Thompson Date of : 1970 Acct: [id number] Room: [facility]05-01 Admit date: 07/18/2022 Today's date: 07/21/22 Number [...] breath or chest discomfort. 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 Patient needed urology evaluation and nephrostomy tube placement so transferred to the [facility]. Urology consulted plan for IR tomorrow. patient [...] time PT/OT/SW-consulted we will follow-up Discharge Planning: banking manager consulted Phillip Garrett MD Internal Medicine Resident, PGY-1 [facility]; [place], [place] 07/21/2022, 8:22 AM Associated attestation - Livia Cantrell MD - 07/21/2022 8:43 PM EDT Attending Physician Statement I have discussed the case of Asa Thompson, including pertinent history and exam findings with the resident/fellow/medical student/RETREAD MOLD OPERATOR/PA. I have seen and examined the patient and the trevizo elementsof the encounter have been performed by me. I agree with the assessment, plan and orders as documented by the resident/fellow/medical student/RETREAD MOLD OPERATOR/PA With changes made to the note [...] 11:26 PM EDT SPIRITUAL CARE DEPARTMENT - [facility] [place]GR[place] Shift date: 07/20/22 Shift day: Monday Shift # 2 Room # 0541/0541-01 Name: Asa Thompson Sikh: Place of jewish: Referral: Routine Visit Admit Date & Time: 07/18/2022 3:19 PM Assessment: Asa Thompson is a 51 y.o. female Intervention: Hired Worker introduced self and title as director cardiac. Patient did not appear to mind director cardiac presence. Hired Worker offered space for patient to express feelings, needs, and concerns and provided a ministry presence. Patient appeared to be resting and coping. Outcome: While gonzález/spirituality were not discussed, patient appeared receptive to director cardiac presence.3 Plan: Chaplains will remain available to offer spiritual and emotional support as needed. . Spiritual Care Department [facility] [phone] * TERRY BERGMAN - 07/20/2022 9:30 PM EDT Orders received for patients high BP * TERRY BERGMAN - 07/20/2022 9:08 PM EDT Notified information technology consultant resident for internal medicine of patients [...] original note were not included. [facility] Internal Medicine Teaching Residency Program Inpatient Daily Progress Note Patient: Asa Thompson Date of : 1970 Acct: [id number] Room: [address] [place] [address] Admit date: 07/18/2022 Today's date: 07/20/22 Number of days in the hospital: 2 SUBJECTIVE Admitting Diagnosis: Calculous pyelonephritis CC: Left flank pain Pt examined at bedside. Chart & results reviewed. No acute event overnight Patient remained afebrile hemodynamically stable Pain better controlled with pain meds IR guided left percutaneous nephrostomy tube placement yesterday evening-output 500 so far WBC-12.3-7.1-10.2 Creatinine 1.65-1.71-2.11 [id number]-corrected sodium 133 Lactic acid-3.8 Glucose-416 ROS: Constitutional: [...] breath or chest discomfort. 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 Patient needed urology evaluation and nephrostomy tube placement so transferred to the [facility]. Urology consulted plan for IR tomorrow. patient [...] BID Continuous Infusions: sodium chloride Stopped (07/19/22 4266) dextrose sodium chloride 100 mL/hr at 07/20/22 1721 PRN Medicationssodium chloride flush, 5-40 mL, PRN [...] time PT/OT/SW-consulted we will follow-up Discharge Planning: banking manager consulted Keo Guevara MD Internal Medicine Resident, PGY-1 [facility]; [place], [place] 07/20/2022, 8:06 AM Associated attestation - Livia Cantrell MD - 07/20/2022 7:52 PM EDT Attending Physician Statement I have discussed the case of Asa Thompson, including pertinent history and exam findings with the resident/fellow/medical student/RETREAD MOLD OPERATOR/PA. I have seen and examined the patient and the trevizo elementsof the encounter have been performed by me. I agree with the assessment, plan and orders as documented by the resident/fellow/medical student/RETREAD MOLD OPERATOR/PA With changes made to the note [...] cysto, URS, HLL 7 years prior in [place], [place] with Dr. Harrison Recurrent UTIs, 4 [...] score is now 5.12. Per sepsis protocol, typewriter assembly and parts inspector ordered lactic and blood cultures. Provider notified. * Alexsandra Mckinley RN - 07/20/2022 3:13 AM EDT Hired Worker notified provider of infection concerns. Patient's WBC [...] original note were not included. Occupational Therapy [facility] Occupational Therapy Not Seen Note DATE: [...] cysto, URS, HLL 7 years prior in [place], [place] with Dr. Harrison Recurrent UTIs, 4 [...] original note were not included. [facility] Internal Medicine Teaching Residency Program Inpatient Daily Progress Note Patient: Asa Thompson Date of : 1970 Acct: [id number] Room: [address] [place] [address] Admit date: 07/18/2022 Today's date: 07/19/22 Number [...] breath or chest discomfort. 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 Patient needed urology evaluation and nephrostomy tube placement so transferred to the [facility]. Urology consulted plan for IR tomorrow. patient [...] time PT/OT/SW-consulted we will follow-up Discharge Planning: banking manager consulted Keo Guevara MD Internal Medicine Resident, PGY-1 [facility]; [place], [place] 07/19/2022, 6:40 AM Associated attestation - Livia Cantrell MD - 07/19/2022 7:45 PM EDT Attending Physician Statement I have discussed the case of Asa Thompson, including pertinent history and exam findings with the resident/fellow/medical student/RETREAD MOLD OPERATOR/PA. I have seen and examined the patient and the trevizo elementsof the encounter have been performed by me. I agree with the assessment, plan and orders as documented by the resident/fellow/medical student/RETREAD MOLD OPERATOR/PA With changes made to the note [...] [N10] Calculous pyelonephritis [N20.0]. See H&P of admitting/internet site designer resident for more details. Transferred from [facility] Patient came in due to left [...] Internal Medicine [facility], [place] 07/19/2022, 12:39 AM documented in this encounterBON [facility] [employer] Work Phone: [phone] 840-168209-16-2022 Hospital Discharge instructions* Discharge Instructions* Keo Guevara MD - 07/22/2022 12:18 PM EDT You were admitted for staghorn renal calculi and your urine culture from [place] was positive for Ecoli. Please take ciprofloxacin [...] Primary Emergency Contact: arian thompson Relation: Child Real Estate Assistant needed? No Past Surgical History: Past Surgical History: Procedure Laterality Date IR NEPHROSTOMY PERCUTANEOUS LEFT 07/19/2022 IR NEPHROSTOMY PERCUTANEOUS LEFT 07/19/2022 Noman Mullen MD [facility] SPECIAL PROCEDURES Immunization History: There is no immunization history on file for this patient. Active Problems: Patient Active Problem List Diagnosis Code Calculous pyelonephritis N20.0 OMAR (acute kidney injury) ([facility]) N17.9 Type 2 diabetes mellitus, with long-term current use of insulin ([facility]) E11.9, Z79.4 Leukocytosis D72.829 Hypothyroidism E03.9 Depression F32.A Hypertension I10 History of coronary artery disease Z86.79 Acute pyelonephritis N10 Left renal atrophy N26.1 Kidney stone N20.0 Sepsis with acute renal failure without septic shock ([facility]) A41.9, R65.20, N17.9 History of penicillin allergy [...] MENTAL STATUS:} IV Access: { TIMO IV ACCESS:443267116} Nursing Mobility/ADLs: Walking {CHP DME ADLs:382895689} Transfer {CHP DME ADLs:858654946} Bathing {CHP DME ADLs:515296216} Dressing {CHP DME ADLs:736701580} Toileting {CHP DME ADLs:318430382} Feeding {CHP DME ADLs:770384559} Broom Maker {CHP DME ADLs:536945297} Med Delivery { TIMO MED Delivery:030656231} Wound Care Documentation and Therapy: Elimination: Continence: Bowel: {YES / NO:} Bladder: {YES / NO:} Urinary Catheter: {Urinary Catheter:657850106} Colostomy/Ileostomy/Ileal Conduit: {YES / NO:} Date of Last BM: Intake/Output Summary (Last 24 hours) at 07/22/2022 1349 Last data filed at 07/22/2022 0813 Gross per 24 hour Intake 1594.2 ml Output 3875 ml Net -2280.8 ml I/O last 3 completed shifts: In: 4236.1 [P.O.:580; I.V.:3350.1; IV Piggyback:306] Out: 6520 [Urine:6520] Safety Concerns: { TIMO Safety Concerns:584654790} Impairments/Disabilities: { TIMO Impairments/Disabilities:374201543} Nutrition Therapy: Current Nutrition Therapy: { TIMO Diet List:913383319} Routes of Feeding: {[facility] DME Other Feedings:909832157} Liquids: {[facility] liquid thickness:99025} Daily Fluid Restriction: {[facility] DME Yes amt example:142247550} Last Modified Barium Swallow with Video (Video Swallowing Test): {Done Not Done Date:} Treatments at the Time of Hospital Discharge: Respiratory Treatments: Oxygen Therapy: {Therapy; copd oxygen:92838} Ventilator: { CC Vent List:798690562} Rehab Therapies: {THERAPEUTIC INTERVENTION:0987472848} Weight Bearing Status/Restrictions: {[facility] Weight Bearin} Other Medical Equipment (for information only, NOT a DME order): {EQUIPMENT:956384869} Other Treatments: Patient's personal belongings (please select all that are sent with patient): {[facility] DME Belongings:107467171} RN SIGNATURE: {Esignature:179046551} CASE MANAGEMENT/SOCIAL WORK SECTION Inpatient Status Date: Readmission Risk Assessment Score: Readmission Risk Risk of Unplanned Readmission: 19 Discharging to Facility/ Agency Name: Address: Phone: Fax: Dialysis Facility (if applicable) Name: Address: Dialysis Schedule: Phone: Fax: Oven Operator Automatic/Doper Operator signature: {Esignature:924273585} PHYSICIAN SECTION Prognosis: {Prognosis:6397697411} Condition at Discharge: { Patient Condition:320901712} Rehab Potential (if transferring to Rehab): {Prognosis:8876988531} Recommended Labs or Other Treatments After Discharge: Physician Certification: I certify the above information and transfer of Asa Thompson is necessary for the continuing treatment of the diagnosis listed and that she requires {Admit to Appropriate Level of Care:40966} for {GREATER/LESS:231571497} 30 days. Update Admission H&P: {CHP DME Changes in HandP:670770239} PHYSICIAN SIGNATURE: {Esignature:353799269} documented in this encounterBON [employer] Phone: [phone] NotePROCEDURE: PERCUTANEOUS ANTEGRADE PYELOGRAM LEFT PERCUTANEOUS NEPHROURETERAL [...] the procedure including risks, benefits, and alternatives. Ellington protocol was followed. The patient's flank was [...] into the urinary bladder using a 4 Tanz[place] Kumpe the catheter; the Glidewire was exchanged [...] puncture of the lower pole calyx, 4 [place] Kumpe the catheter manipulation and glidewire extension [...] Signed by: Noman Mullen MD 07/19/22 [facility]-2022 NotePROCEDURE: PERCUTANEOUS ANTEGRADE PYELOGRAM LEFT PERCUTANEOUS NEPHROURETERAL [...] the procedure including risks, benefits, and alternatives. Ellington protocol was followed. The patient's flank was [...] into the urinary bladder using a 4 [place] Kumpe the catheter; the Glidewire was exchanged [...] puncture of the lower pole calyx, 4 [place] Kumpe the catheter manipulation and glidewire extension into the urinary bladder. Subsequent images show the nephroureteral stent in satisfactory position. [facility] RIS [id number] NoteHNO ID: [id number] Author: Liliana Avila, PhD Service: ? Author Type: Physician Type: Progress Notes Filed: 03/11/2022 3:32 PM Note Text: [facility] Progress Note 03/11/2022 Billing code: 33061/[place] 3:10PM - I called the patient to [...] her evaluation/medical records. Will send her a [employer] message with instructions. Liliana Avila, PhD Clinical Health PsychologistL[facility]01-20-2022 NoteHNO ID: [id number] Author: Jeannine Tamez, PhD Service: ? Author Type: Psychologist Type: Progress Notes Filed: 11/25/2021 8:38 AM Note Text: [facility] Patient no-showed appointment despite phone call and HIPAA compliant VM. Patient given instructions on rescheduling. Jeannine Tamez, PhD PsychologistLancaster Municipal Hospital09-03-2021 NoteHNO ID: [id number] Author: Ghazal Doyle RD Service: ? Author [...] meal plan and stated understanding. Ghazal Doyle RDLancaster Municipal Hospital08-31-2021 NoteHNO ID: [id number] Author: Ghazal Doyle RD Service: ? Author Type: Registered Dietitian Type: Progress Notes Filed: 07/06/2021 11:52 AM Note Text: Telephone call placed to patient at 11:49 AM at [phone]. Received forwarded My Chart message from Abraham Pacheco RN regarding hypoglycemia on liquid diet phase. No answer . Left message with contact telephone number [phone] and instructions to communicate with this provider via [employer] when able. Ghazal Doyle RDLancaster Municipal Hospital08-16-2021 NoteHNO ID: [id number] Author: Quincy Rodriguez MD Service: ? Author [...] AND Bariatric Surgery Fellow Bariatric AND Metabolic [facility] STAFF NOTE I have seen and evaluated [...] counseling and educating the patient/family/caregiver. Quincy Rodriguez, [facility]06-04-2021 NoteHNO ID: [id number] Author: Jeannine Tamez, PhD Service: ? Author Type: Psychologist Type: Progress Notes Filed: 04/09/2021 2:44 PM Note Text: [facility] Receipt of Outside Records Patient: Asa Thompson Date: 04/09/2021 Received records from patient's physician, Garry Ramos MD of [facility] (Address: [address] [place] [address]; ; ). Asa is off of all psychiatric meds and is stable for gastric bypass surgery. These records have been sent to scanning. Plan: *All requirements have been met Jeannine Tamez, PhD PsychologistLancaster Municipal Hospital05-26-2021 NoteHNO ID: [id number] Author: Ghazal Doyle RD Service: ? Author Type: Registered Dietitian Type: Progress Notes Filed: 03/31/2021 9:29 AM Note Text: [facility] Nutrition Therapy: Virtual Consult ? Re-assessment This visit was performed virtually due to the COVID-19 epidemic as an effort to protect patients and minimize exposure. Consent from patient received to conduct visit virtually. This Team Access Model visit is a virtual encounter. It required patient-provider interaction for the medical decision making as documented below. This visit completed via [employer] as Zoom did not connect PROGRESS: [...] - met 6. Start researching post-op vitamins: Anapsis, MyShape, or GlobalCrypto-specific websites- - met Pre-op goal weight:?238 lbs [...] Diagnosis Date - Anxiety - Bipolar disorder ([facility]) - CAD (coronary artery disease) 10/06/2010 - DM (diabetes mellitus) ([facility]) - Hyperlipidemia - Hypothyroidism - Nephrolithiasis - Schizophrenia ([facility]) - UTI (urinary tract infection) PAST SURGICAL HISTORY Procedure Laterality Date - CARDIAC CATH 10/06/2010 Moderate, nonhemodynamically significant stenosis of RCA (by FFR) - HYSTERECTOMY HX - PAST SURGICAL HISTORY OF 03/2016 urinary stent - TONSILLECTOMY HX ANTHROPOMETRICS Height per patient: 63? Weight per patient: 236 lbs# Most recent height and weight per [facility] Height: Last 1 Encounter Ht Readings: [...] [facility] (more content not included)... [facility] Diagnosis Calculous pyelonephritis- Primary Kidney [...] of non-steroidal anti-inflammatories documented in this encounter [employer] Phone: evaluation note* Diagnosis Nephrostomy tube displaced (HCC)- Primary Urinary complications Nephrostomy complication (HCC) documented in this encounter [employer] Phone: History general Narrative - Reported* Type Description Date Medical History Hypercholesterolemia Medical History DM Medical History Hypothyroid Medical History diabetic neuropathy Surgical History ALIZA BSO 2000 Surgical History Heart catherization 2010 Surgical History kidney stone Surgical History left kidney removed 10/26/2022 Hospitalization History See past surgical histor y Hospitalization History Heart Event 2010 [employer] Other Hospital Discharge instructions* Attachments The following attachments cannot be sent through Care Everywhere. * Nephrostomy Tube Care ([place] Citizen) documented in this encounterBON [employer] Work Phone: Assessments No Assessments Information Available [...] W PHARMACOLOGICAL INTERVENTION Robson, Christi, DO [address] [address] Referral ID Status Reason Start Date Expiration Date Visits Re quested Visits Authorized [id number] Open 08/03/2022 08/03/2023 1 1 Additional Source Comments INFORMATION SOURCE (unrecogn ized section and content) DATE CREATED AUTHOR 04/03/2021 [facility] DATE CREATED AUTHOR AUTHOR'S ORGANIZ ATION 03/15/2022 [facility] DATE CREATED AUTHOR AUTHOR'S ORGANIZ ATION 08/09/2022 [facility] DATE CREATED AUTHOR AUTHOR'S ORGANIZ ATION 08/11/2022 [facility] DATE CREATED AUTHOR AUTHOR'S ORGANIZ ATION 03/17/2023 [facility] DATE CREATED AUTHOR AUTHOR'S ORGANIZ ATION 08/07/2024 [facility] DATE CREATED AUTHOR AUTHOR'S ORGANIZ ATION 11/02/2024 [facility] Reason for Visit (unrecogniz ed section and content) Reason Comments Flank Pain Specialty Diagnoses / Procedures Referred By Serina bonilla Referred To Contact Diagnoses Kidney stone Acute pyelonephritis Calculous pyelonephritis Livia Cantrell MD [address] [address] [facility] [address] [place] [address] Referral ID Status Reason Start Date Expiration Date Visits Re quested Visits Authorized [id number] 1 1 Reason Comments Other nephrostamy tube got pulled. tub is broken and leaking urine. not able to gett it to stop leaking Specialty Diagnoses / Procedures Referred By Serina bonilla Referred To Contact Diagnoses Nephrostomy tube displaced (HCC) Nephrostomy complication (HCC) Paloma Arceo MD [address] [place] [address] [facility] [address] [place] [address] Referral ID Status Reason Start Date Expiration Date Visits Re quested Visits Authorized [id number] 1 1 Ordered Prescriptions (unrec ognized section [...] Provider: TERRY BERGMAN)1355 (Given - Provider: Christine aCmpa RN)2200 (Due) hydrALAZINE (APRESOLINE) tablet 25 mg [...] Latoya Chatterjee RN)1645 (Not Given - Provider: aLtoya Chatterjee RN - Reason: Order parameters not [...]
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 [facility] [employer] [facility]. provides no warranty or guarantee of the accuracy or completeness of information in this document.
[2025-08-25 12:09] LABS: Hematocrit 37.1 % (36.0-48.0); Hemoglobin 12.5 g/dL (12.0-16.0); Immature Granulocytes Abs Auto 0.06 10^3/uL (0.00-0.03); Immature Granulocytes Pct Auto 0.8 % (0.0-0.5); Lymphocytes Absolute Auto 2.3 10^3/uL (1.2-3.8); Mean Corpuscular HGB Conc 33.7 g/dL (29.9-35.2); Mean Corpuscular Hemoglobin 28.5 pg (26.7-34.0); Mean Corpuscular Volume 84.5 fL (81.0-99.0); Platelet Count 343 10^3/uL (150-450); Red Blood Count 4.39 10^6/uL (4.20-5.40); White Blood Count 7.8 10^3/uL (4.0-11.0)
[2025-08-25 12:51] LABS: Alanine Aminotransferase 24 U/L (14-59); Albumin Globulin Ratio 0.8; Albumin Level 3.3 g/dL (3.4-5.0); Alkaline Phosphatase 125 U/L (46-116); Anion Gap 13.9; Aspartate Amino Transferase 10 U/L (15-37); Blood Urea Nitrogen 22.0 mg/dL (7.0-18.0); Calcium 9.5 mg/dL (8.5-10.1); Carbon Dioxide 26.2 mmol/L (21.0-32.0); Chloride 104 mmol/L (98-107); Estimated GFR (African America 57 (>=60 mL/min/1.73m^2); Estimated GFR (Non-African Ame 47 (>=60 mL/min/1.73m^2); Globulin 4.3 g/dL; Glucose 185 mg/dL (74-106); NT Pro B Type Natriuretic Pept 556.0 pg/mL (<=900.0); Potassium 4.1 mmol/L (3.5-5.1); Sodium 140 mmol/L (136-145); Total Protein 7.6 g/dL (6.4-8.2)
== END 2025-08-25 11:50 | disposition home or self-care (01) ==
LOC: LAB 11:50
PROVIDERS: PCP Family Medicine; Visit Provider Family Medicine
DX: R07.9 Chest pain, unspecified (principal)
CPT/HCPCS: 36415; 80053; 83880; 84484; 85025

== ENCOUNTER 2025-08-25 13:21 | Emergency (ER) | payer OTHER, SELFPAY ==
[2025-08-25] VITALS (36 sets, daily range): BP systolic 160–217; BP diastolic 61–96; PULSE 92–114; TEMP 36.9; O2SAT 95–99; BMI 43.4
--- OUTSIDE RECORDS SUMMARY | 2025-08-25 13:32 | XMS_ITS | CCD ---
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 Morphine; Translations: [MORPHINE] Drug Allergy 6 [facility] [employer] Work Phone: (6 sources) Penicillins; Translations: [Penicillins] Propensity to adverse reactions to drug 9 [facility] Ciprofloxacin; Translations: [CIPROFLOXACIN] Drug Allergy 6 [facility] [employer] (1 source) penicillAMINE Drug Allergy [facility] cocone Other (2 sources) Ciprofloxacin Drug Allergy 6 [facility] (1 source) HYDROmorphone Drug Allergy [facility] (2 sources) Morphine Drug Allergy 9 [facility] Medications Current Medications Medication Drug [...] Active Start: 07-23-2022 take [address] 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) use of non-steroidal anti-inflammatories (NSAID)] Onset: [...] Onset: 04-15-2022 Episodic Other aftercare (1 source) skilled nursing (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; Translations: [PRINCIPAL IOS DEVELOPER CURRENT USE OF ASPIRIN] Onset: 07-20-2022 Episodic Other aftercare (1 source) 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; Translations: [OTH PRINCIPAL IOS DEVELOPER CURRENT DRUG THERAPY] Onset: 07-20-2022 Episodic Other aftercare (1 source) skilled nursing (current) use of oral hypoglycemic drugs; Translations: [PRINCIPAL IOS DEVELOPER USE ORAL HYPOGLYCEMIC DX] Onset: 07-20-2022 Episodic Other screening for suspected conditions (not mental disorders or infectious disease) (1 source) Encounter for screening for malignant neoplasm of rectum; Translations: [ENC SCREEN MALIG NEOPLASM RECTUM] Onset: 04-19-2022 Episodic Urinary tract infections (6 sources) Acute pyelonephritis; Translations: [Acute pyelonephritis] Onset: 07-19-2022 Episodic Results Test Name Value Interpretation Reference Range Facility [facility] 11-01-2024 NURSNOTE RN educated pt on [...] off of unit with all of belongings. [facility] NURSNOTE Bedside swallow stud y completed and passed. Normal [facility] Telephoneon 10-24-2024 Telephone [phone] Asa Thompson Jyotsna 1970 F Date Provider Department Center 10/24/2024 Leigh AnnSeanFERMIN MICHELLE [facility] Family History Problem Relation Age of Onset Coronary artery disease Father Other Father Family Status - Relation Status Age at Father [facility] 37on 09-20-2024 37 Patient returned my call. She is not having fever or chills. She agrees to complete blood cultures and ANGEL. Orders entered. [facility] 37 Regarding echo resul t from [...] Thanks for patient to return my call. [facility] Office Visiton 09-02-2024 Follow-up visit [id number] LucpierceGina mcdonaldAsa Jyotsna 1970 F Date Provider Department Sandy 09/02/2024 [facility]DUGLAS REEDER EDDIE Fuller Family History Problem Relation Age of Onset Coronary artery disease Father Other Father Family Status - Relation Status Age at Father Level of Service:79053 SD OFFICE/OUTPATIENT NEW MODERATE MDM 45 MINUTES [facility] CBC AND AUTO DIFFon 08-06-20 24 ABSOLUTE BASOPHIL 0.0 X10E9/L Normal 0.0-0.2 [facility] Comment on above: Performed By: #### C BCA, 03988-3, CMP #### [facility] ([id number]) [address] [facility], [place] [address] #### HA1C #### [facility] ([id number]) [address] [facility], [address] [place] [address] ABSOLUTE NEUTROPHIL 4.0 X10E9/L Normal 1.5-6.[address] [facility] Comment on above: Performed By: #### C DIMA, 19749-6, CMP #### [facility] ([id number]) [address] [place] [address] 51082 #### HALulu #### [facility] ([id number]) [address], [address] [place] [address] Basophils/100 WBC (Bld) 0.6 % Normal [facility] Comment on above: Performed By: #### C DIMA, 59726-5, CMP #### [facility] ([id number]) [address] [place] [address] 71985 #### ARUN #### [facility] ([id number]) [address], [address] [place] [address] Eosinophils (Bld) [#/Vol] 0.2 10*3/uL Normal 0.0-0.4 [facility] Comment on above: Performed By: #### aJimee CH, 95418-3, CMP #### [facility] ([id number]) [address] [place] [address]30[address] #### ARUN #### [facility] ([id number]) [address], [address] [place] [address] Eosinophils/100 WBC (Bld) 2.3 % Normal [facility] Comment on above: Performed By: #### C DIMA, 85521-9, CMP #### [facility] ([id number]) [address] [place] [address] 52090 #### HALulu #### [facility] ([id number]) [address], [address] [place] [address] Erythrocyte distribution width (RBC) [Ratio] 15.1 % High 11.5-15.0 [facility] Comment on above: Performed By: #### Jaimee CH, 18856-1, CMP #### [facility] ([id number]) [address] [place] [address] 57855 #### HA1C #### [facility] ([id number]) [address] [facility], [address] [place] [address] Hematocrit (Bld) [Volume fraction] 32.9 % Low 35-47 [facility] Comment on above: Performed By: #### C DIMA, 32752-3, CMP #### [facility] ([id number]) [address] [place] [address] 22316 #### ARUN #### [facility] ([id number]) [address] [facility], [address] [place] [address] Hemoglobin (Bld) [Mass/Vol] 11.4 g/dL Low 11.7-15.5 [facility] Comment on above: Performed By: #### C DIMA, 51429-1, CMP #### [facility] ([id number]) [address] [place] [address] 51739 #### ARUN #### [facility] ([id number]) [address] [facility], [address] [place] [address] Lymphocytes (Bld) [#/Vol] 2.4 10*3/uL Normal 1.0-3.5 [facility] Comment on above: Performed By: #### C DIMA, 79290-0, CMP #### [facility] ([id number]) [address] [place] [address] 07421 #### HALulu #### [facility] ([id number]) [address] [facility], [address] [place] [address] Lymphocytes/100 WBC (Bld) 33.9 % Normal [facility] Comment on above: Performed By: #### C DIMA, 80832-6, CMP #### [facility] ([id number]) [address] [place] [address] 37523 #### HA1C #### [facility] ([id number]) [address] [facility], [address] [place] [address] MCH (RBC) [Entitic mass] 29.2 pg Normal 27-34 [facility] Comment on above: Performed By: #### Jaimee CH, 61129-6, CMP #### [facility] ([id number]) [address] [place] [address] 66600 #### HA1C #### [facility] ([id number]) [facility] [facility], [address] [place] [address] MCHC (RBC) [Mass/Vol] 34.7 g/dL Normal 32-36 [facility] Comment on above: Performed By: #### Jaimee CH, 36727-4, CMP #### [facility] ([id number]) [address] [place] [address] 79169 #### HA1C #### [facility] ([id number]) [address] [facility], [address] [place] [address] MCV (RBC) [Entitic vol] 84 fL Normal 80-100 [facility] Comment on above: Performed By: #### Jaimee CH, 69240-1, CMP #### [facility] ([id number]) [address] [place] [address] 48886 #### HA1C #### [facility] ([id number]) [address] [facility], [address] [place] [address] Monocytes (Bld) [#/Vol] 0.4 10*3/uL Normal 0-0.9 [facility] Comment on above: Performed By: #### Jaimee CH, 27381-8, CMP #### [facility] ([id number]) [address] [place] [address] 94447 #### ARUN #### [facility] ([id number]) [address] [place] [address] Monocytes/100 WBC (Bld) 6.2 % Normal [facility] Comment on above: Performed By: #### Jaimee CH, 72955-3, CMP #### [facility] ([id number]) [address] [place] [address] 75712 #### ARUN #### [facility] ([id number]) [address], [address] [place] [address] Neutrophils/100 WBC (Bld) 57.0 % Normal [facility] Comment on above: Performed By: #### Jaimee CH, 78725-2, CMP #### [facility] ([id number]) [address] [place] [address] 84347 #### ARUN #### [facility] ([id number]) [address] [place] [address] Platelet mean volume (Bld) [Entitic vol] 8.2 fL Normal 7-12 [facility] Comment on above: Performed By: #### Jaimee CH, 21172-4, CMP #### [facility] ([id number]) [address] [place] [address] 63015 #### ARUN #### [facility] ([id number]) [address], [address] [place] [address] Platelets (Bld) [#/Vol] 336 10*3/uL Normal 150-450 [facility] Comment on above: Performed By: #### Jaimee CH, 13792-0, CMP #### [facility] ([id number]) [address] [place] [address] 65556 #### ARUN #### [facility] ([id number]) [address], [address] [place] [address] RBC COUNT 3.91 X10E12/L Normal 3.80-5.20 [facility] Comment on above: Performed By: #### C DIMA, 32684-0, CMP #### [facility] ([id number]) [address] [place] [address] 11756 #### HA1C #### [facility] ([id number]) [address] [facility], [address] [place] [address] WBC (Bld) [#/Vol] 7.1 10*3/uL Normal 4.0-11.0 [facility] Comment on above: Performed By: #### C DIMA, 41776-0, CMP #### [facility] ([id number]) [address] [place] [address] 11065 #### HA1C #### [facility] ([id number]) [address] [place] [address], [address] [place] [address] COMPREHENSIVE METABOLIC PANE Chay 08-06-2024 Albumin [Mass/Vol] 3.6 g/dL Normal 3.2-5.3 [facility] Comment on above: Performed By: #### Jaimee CH, 50592-8, CMP #### [facility] ([id number]) [address] [place] [address] 35979 #### HA1C #### [facility] ([id number]) [address] [place] [address], [address] [place] [address] ALP [Catalytic activity/Vol] 87 U/L Normal 39-130 [facility] Comment on above: Performed By: #### C DIMA, 53437-6, CMP #### [facility] ([id number]) [address] [place] [address] 21684 #### HA1C #### [facility] ([id number]) [address] [facility], [address] [place] [address] ALT [Catalytic activity/Vol] 19 U/L Normal 0-31 [facility] Comment on above: Performed By: #### Jaimee CH, 36065-6, CMP #### [facility] ([id number]) [address] [place] [address] 17685 #### HA1C #### [facility] ([id number]) [address], [address] [place] [address] Anion gap [Moles/Vol] 10 mmol/L Normal 5-15 [facility] Comment on above: Performed By: #### C DIMA, 74318-1, CMP #### [facility] ([id number]) [address] [place] [address] 02196 #### HA1C #### [facility] ([id number]) [address], [address] [place] [address] AST [Catalytic activity/Vol] 20 U/L Normal 0-41 [facility] Comment on above: Performed By: #### C DIMA, 26276-8, CMP #### [facility] ([id number]) [address] [place] [address] 14036 #### HA1C #### [facility] ([id number]) [address], [address] [place] [address] Bilirubin [Mass/Vol] 0.3 mg/dL Normal 0.3-1.[address] [facility] Comment on above: Performed By: #### C BCA, 21910-9, CMP #### [facility] ([id number]) [address] [place] [address] 83934 #### HA1C #### [facility] ([id number]) [address], [address] [place] [address] Calcium [Mass/Vol] 8.8 mg/dL Normal 8.5-10.5 [facility] Comment on above: Performed By: #### C BCA, 51700-5, CMP #### [facility] ([id number]) [address] [place] [address] 39577 #### HA1C #### [facility] ([id number]) [address] [place] [address] Chloride [Moles/Vol] 103 mmol/L Normal 98-[address] [facility] Comment on above: Performed By: #### C BCA, 69839-9, CMP #### [facility] ([id number]) [address] [place] [address] 00872 #### HA1C #### [facility] ([id number]) [address], [address] [place] [address] CO2 [Moles/Vol] 19 mmol/L Low 22-32 [facility] Comment on above: Performed By: #### C BCA, 14738-5, CMP #### [facility] ([id number]) [address] [place] [address] 09248 #### HA1C #### [facility] ([id number]) [address], [address] [place] [address] Creatinine [Mass/Vol] 1.58 mg/dL High 0.40-1.00 [facility] Comment on above: Result Comment: METH OD TRACEABLE TO IDMS STANDARD Performed By: #### C BCA, 08402-2, CMP #### [facility] ([id number]) [address] [place] [address] 01016 #### HA1C #### [facility] ([id number]) [address], [address] [place] [address] GFR/1.73 sq M.predicted among non-blacks MDRD (S/P/Bld) [Vol rate/Area] 39 mL/min/{1.73_m2} Low >59 [facility] Comment on above: Result Comment: Reported eGFR is based on the CKD-EPI 2020 equation that does not use a race coefficient. Performed By: #### C DIMA, 19556-1, CMP #### [facility] ([id number]) [address] [place] [address] 42117 #### HA1C #### [facility] ([id number]) [address], [address] [place] [address] Glucose [Mass/Vol] 312 mg/dL High 65-99 [facility] Comment on above: Performed By: #### C DIMA, 30414-5, CMP #### [facility] ([id number]) [address] [place] [address] 09499 #### HA1C #### [facility] ([id number]) [address], [address] [place] [address] Potassium [Moles/Vol] 4.7 mmol/L Normal 3.5-5.0 [facility] Comment on above: Performed By: #### Jaimee CH, 81640-1, CMP #### [facility] ([id number]) [address] [place] [address] 26162 #### HA1C #### [facility] ([id number]) [address], [address] [place] [address] Protein [Mass/Vol] 6.7 g/dL Normal 6.0-8.0 [facility] Comment on above: Performed By: #### C DIMA, 58772-8, CMP #### [facility] ([id number]) [address] [place] [address] 65510 #### HA1C #### [facility] ([id number]) [address], [address] [place] [address] Sodium [Moles/Vol] 132 mmol/L Low 134-146 [facility] Comment on above: Performed By: #### C DIMA, 95332-8, CMP #### [facility] ([id number]) [address] [place] [address] 07034 #### HA1C #### [facility] ([id number]) [address], [address] [place] [address] Urea nitrogen [Mass/Vol] 29 mg/dL High 5-23 [facility] Comment on above: Performed By: #### C DIMA, 75097-3, CMP #### [facility] ([id number]) [address] [place] [address] 59137 #### HA1C #### [facility] ([id number]) [address], [address] [place] [address] Glucose Glucometer (BldC) [M ass/Vol]on 08-06-2024 Glucose [Mass/Vol] 319 mg/dL High 65-99 [facility] Heparin unfractionated Chrom ogenic method Qn (PPP)on 08-06-2024 ANTI XA UFH 0.29 IU/mL Low 0.30-0.70 [facility] Comment on above: Result Comment: Opti mal time for testing is 6 hrs post dosage This test is specific for monitoring patients on UFH, and is not recommended for use with other Anti-Xa medications. Performed By: #### C DIMA, 67882-3, CMP #### [facility] ([id number]) [address] [place] [address] 87126 #### HA1C #### [facility] ([id number]) [address], [address] [place] [address] ANTI XA UFH 0.33 IU/mL Normal 0.30-0.70 [facility] Comment on above: Result Comment: Opti mal time for testing is 6 hrs post dosage This test is specific for monitoring patients on UFH, and is not recommended for use with other Anti-Xa medications. Performed By: #### C DIMA, 35821-7, CMP #### [facility] ([id number]) [address] [place] [address] 35335 #### HA1C #### [facility] ([id number]) [address], [address] [place] [address] MAGNESIUMon 08-06-2024 Magnesium [Mass/Vol] 1.8 mg/dL Normal 1.8-2.[address] [facility] Comment on above: Performed By: #### C DIMA, 22553-6, CMP #### [facility] ([id number]) [address] [place] [address] 71682 #### HA1C #### [facility] ([id number]) [address], [address] [place] [address] CBC AND AUTO DIFFon 08-05-20 24 ABSOLUTE BASOPHIL 0.0 X10E9/L Normal 0.0-0.2 [facility] Comment on above: Performed By: #### C DIMA, 47378-1, CMP #### [facility] ([id number]) [address] [place] [address] 79583 #### HA1C #### [facility] ([id number]) [address], [address] [place] [address] ABSOLUTE NEUTROPHIL 3.0 X10E9/L Normal 1.5-6.[address] [facility] Comment on above: Performed By: #### C DIMA, 34600-8, CMP #### [facility] ([id number]) [address] [place] [address] 38107 #### HA1C #### [facility] ([id number]) [address], [address] [place] [address] Basophils/100 WBC (Bld) 0.4 % Normal [facility] Comment on above: Performed By: #### C DIMA, 14578-2, CMP #### [facility] ([id number]) [address] [place] [address] 23225 #### ARUN #### [facility] ([id number]) [address], [address] [place] [address] Eosinophils (Bld) [#/Vol] 0.1 10*3/uL Normal 0.0-0.4 [facility] Comment on above: Performed By: #### C DIMA, 47196-3, CMP #### [facility] ([id number]) [address] [place] [address] 47762 #### ARUN #### [facility] ([id number]) [address] [facility], [address] [place] [address] Eosinophils/100 WBC (Bld) 2.6 % Normal [facility] Comment on above: Performed By: #### Jaimee CH, 70433-2, CMP #### [facility] ([id number]) [address] [place] [address] 02974 #### ARUN #### [facility] ([id number]) [address] [facility], [address] [place] [address] Erythrocyte distribution width (RBC) [Ratio] 14.7 % Normal 11.5-15.0 [facility] Comment on above: Performed By: #### Jaimee CH, 60140-4, CMP #### [facility] ([id number]) [address] [place] [address] 21440 #### HA1C #### [facility] ([id number]) [address], [address] [place] [address] Hematocrit (Bld) [Volume fraction] 32.3 % Low 35-47 [facility] Comment on above: Performed By: #### Jaimee CH, 89913-0, CMP #### [facility] ([id number]) [address] [place] [address] 98260 #### HALulu #### [facility] ([id number]) [address] [facility], [address] [place] [address] Hemoglobin (Bld) [Mass/Vol] 11.1 g/dL Low 11.7-15.5 [facility] Comment on above: Performed By: #### Jaimee CH, 67785-3, CMP #### [facility] ([id number]) [address] [place] [address] 31629 #### ARUN #### [facility] ([id number]) [address] [facility], [address] [place] [address] Lymphocytes (Bld) [#/Vol] 1.8 10*3/uL Normal 1.0-3.5 [facility] Comment on above: Performed By: #### [place]ime[place] CH, [address]93-5, CMP #### [facility] ([id number]) [address] [place] [address] #### ARUN #### [facility] ([id number]) [address] [facility], [address] [place] [id number] Lymphocytes/100 WBC (Bld) 34.0 % Normal [facility] Comment on above: Performed By: #### [place] CH, [address]-4, CMP #### [facility] ([id number]) [address] [place] [address] #### HA1C #### [facility] ([id number]) [address] [place] [address], [address] [place] [address] MCH (RBC) [Entitic mass] 29.1 pg Normal 27-34 [facility] Comment on above: Performed By: #### [place], [address]-9, CMP #### [facility] ([id number]) [address] [place] [address] #### HA1C #### [facility] ([id number]) [address], [address] [place] [address] MCHC (RBC) [Mass/Vol] 34.3 g/dL Normal 32-36 [facility] Comment on above: Performed By: #### Jaimee CH, 38889-4, CMP #### [facility] ([id number]) [address] [place] [address] 50617 #### HALulu #### [facility] ([id number]) [address] [facility], [address] [place] [address] MCV (RBC) [Entitic vol] 85 fL Normal 80-100 [facility] Comment on above: Performed By: #### Jaimee CH, 83614-8, CMP #### [facility] ([id number]) [address] [place] [address] 82247 #### HALulu #### [facility] ([id number]) [address] [facility], [address] [place] [address] Monocytes (Bld) [#/Vol] 0.3 10*3/uL Normal 0-0.9 [facility] Comment on above: Performed By: #### Jaimee CH, 68563-8, CMP #### [facility] ([id number]) [address] [place] [address] 02614 #### HALulu #### [facility] ([id number]) [address], [address] [place] [address] Monocytes/100 WBC (Bld) 5.9 % Normal [facility] Comment on above: Performed By: #### Jaimee CH, 25587-4, CMP #### [facility] ([id number]) [address] [place] [address] 96464 #### HALulu #### [facility] ([id number]) [address], [address] [place] [address] Neutrophils/100 WBC (Bld) 57.1 % Normal [facility] Comment on above: Performed By: #### Jaimee CH, 11314-8, CMP #### [facility] ([id number]) [address] [place] [address] 41703 #### ARUN #### [facility] ([id number]) [address], [address] [place] [address] Platelet mean volume (Bld) [Entitic vol] 8.3 fL Normal 7-12 [facility] Comment on above: Performed By: #### Jaimee CH, 23280-1, CMP #### [facility] ([id number]) [address] [place] [address] 19844 #### ARUN #### [facility] ([id number]) [address], [address] [place] [address] Platelets (Bld) [#/Vol] 321 10*3/uL Normal 150-450 [facility] Comment on above: Performed By: #### Jaimee CH, 39100-5, CMP #### [facility] ([id number]) [address] [place] [address] 27521 #### ARUN #### [facility] ([id number]) [address], [address] [place] [address] RBC COUNT 3.81 X10E12/L Normal 3.80-5.20 [facility] Comment on above: Performed By: #### Jaimee CH, 65807-6, CMP #### [facility] ([id number]) [address] [place] [address] 05077 #### HALulu #### [facility] ([id number]) [address], [address] [place] [address] WBC (Bld) [#/Vol] 5.2 10*3/uL Normal 4.0-11.0 [facility] Comment on above: Performed By: #### C DIMA, 97018-7, CMP #### [facility] ([id number]) [address] [place] [address] 37070 #### HA1C #### [facility] ([id number]) [address], [address] [place] [address] COMPREHENSIVE METABOLIC PANE [facility] 08-05-2024 Albumin [Mass/Vol] 3.4 g/dL Normal 3.2-5.3 [facility] Comment on above: Performed By: #### C DIMA, 54879-1, CMP #### [facility] ([id number]) [address] [place] [address] 40534 #### HALulu #### [facility] ([id number]) [address] [facility], [address] [place] [address] ALP [Catalytic activity/Vol] 88 U/L Normal 39-130 [facility] Comment on above: Performed By: #### Jaimee CH, 42754-6, CMP #### [facility] ([id number]) [address] [place] [address] 95592 #### HA1C #### [facility] ([id number]) [address] [facility], [address] [place] [address] ALT [Catalytic activity/Vol] 19 U/L Normal 0-31 [facility] Comment on above: Performed By: #### C DIMA, 04266-2, CMP #### [facility] ([id number]) [address] [place] [address] 97855 #### HA1C #### [facility] ([id number]) [address] [facility], [address] [place] [address] Anion gap [Moles/Vol] 8 mmol/L Normal 5-15 [facility] Comment on above: Performed By: #### C BCA, 86846-5, CMP #### [facility] ([id number]) [address] [place] [address] 86155 #### HA1C #### [facility] ([id number]) [address], [address] [place] [address] AST [Catalytic activity/Vol] 17 U/L Normal 0-41 [facility] Comment on above: Performed By: #### C BCA, 26730-4, CMP #### [facility] ([id number]) [address] [place] [address] 34925 #### HA1C #### [facility] ([id number]) [address], [address] [place] [address] Bilirubin [Mass/Vol] 0.5 mg/dL Normal 0.3-1.[address] [facility] Comment on above: Performed By: #### C BCA, 19139-4, CMP #### [facility] ([id number]) [address] [place] [address] 08470 #### HA1C #### [facility] ([id number]) [address], [address] [place] [address] Calcium [Mass/Vol] 9.0 mg/dL Normal 8.5-10.5 [facility] Comment on above: Performed By: #### C BCA, 68427-2, CMP #### [facility] ([id number]) [address] [place] [address] 02180 #### HA1C #### [facility] ([id number]) [address], [address] [place] [address] Chloride [Moles/Vol] 104 mmol/L Normal 98-[address] [facility] Comment on above: Performed By: #### C BCA, 43962-7, CMP #### [facility] ([id number]) [address] [place] [address] 63934 #### HA1C #### [facility] ([id number]) [address], [address] [place] [address] CO2 [Moles/Vol] 20 mmol/L Low 22-32 [facility] Comment on above: Performed By: #### C DIMA, 66724-5, CMP #### [facility] ([id number]) [address] [place] [address] 90578 #### HA1C #### [facility] ([id number]) [address], [address] [place] [address] Creatinine [Mass/Vol] 1.64 mg/dL High 0.40-1.00 [facility] Comment on above: Result Comment: METH OD TRACEABLE TO IDMS STANDARD Performed By: #### C DIMA, 07654-2, CMP #### [facility] ([id number]) [address] [place] [address] 39121 #### HA1C #### [facility] ([id number]) [address], [address] [place] [address] GFR/1.73 sq M.predicted among non-blacks MDRD (S/P/Bld) [Vol rate/Area] 37 mL/min/{1.73_m2} Low >59 [facility] Comment on above: Result Comment: Reported eGFR is based on the CKD-EPI 2020 equation that does not use a race coefficient. Performed By: #### C DIMA, 27283-1, CMP #### [facility] ([id number]) [address] [place] [address] 07925 #### HA1C #### [facility] ([id number]) [address], [address] [place] [address] Glucose [Mass/Vol] 241 mg/dL High 65-99 [facility] Comment on above: Performed By: #### C DIMA, 50354-5, CMP #### [facility] ([id number]) [address] [place] [address] 47023 #### HA1C #### [facility] ([id number]) [address], [address] [place] [address] Potassium [Moles/Vol] 4.6 mmol/L Normal 3.5-5.0 [facility] Comment on above: Performed By: #### C DIMA, 44992-0, CMP #### [facility] ([id number]) [address] [place] [address] 72141 #### HA1C #### [facility] ([id number]) [address], [address] [place] [address] Protein [Mass/Vol] 6.7 g/dL Normal 6.0-8.0 [facility] Comment on above: Performed By: #### C DIMA, 73100-3, CMP #### [facility] ([id number]) [address] [place] [address] 77462 #### HA1C #### [facility] ([id number]) [address], [address] [place] [address] Sodium [Moles/Vol] 132 mmol/L Low 134-146 [facility] Comment on above: Performed By: #### C DIMA, 83051-0, CMP #### [facility] ([id number]) [address] [place] [address] 89260 #### HA1C #### [facility] ([id number]) [address], [address] [place] [address] Urea nitrogen [Mass/Vol] 33 mg/dL High 5-23 [facility] Comment on above: Performed By: #### Jaimee CH, 49431-7, CMP #### [facility] ([id number]) [address] [place] [address] 41412 #### ARUN #### [facility] ([id number]) [address], [address] [place] [address] Glucose Glucometer (BldC) [M ass/Vol]on 08-05-2024 Glucose [Mass/Vol] 372 mg/dL High 65-99 [facility] Glucose [Mass/Vol] 362 mg/dL High 65-99 [facility] Glucose [Mass/Vol] 376 mg/dL High 65-99 [facility] Glucose [Mass/Vol] 398 mg/dL High 65-99 [facility] HEMOGLOBINon 08-05-2024 Hemoglobin (Bld) [Mass/Vol] 11.6 g/dL Low 11.7-15.5 [facility] Comment on above: Performed By: #### Jaimee CH, 52163-0, CMP #### [facility] ([id number]) [address] [place] [address] 28531 #### ARUN #### [facility] ([id number]) [address], [address] [place] [address] Heparin unfractionated Chrom ogenic method Qn (PPP)on 08-05-2024 ANTI XA UFH 0.44 IU/mL Normal 0.30-0.70 [facility] Comment on above: Result Comment: Opti mal time for testing is 6 hrs post dosage This test is specific for monitoring patients on UFH, and is not recommended for use with other Anti-Xa medications. Performed By: #### Jaimee CH, 03376-7, CMP #### [facility] ([id number]) [address] [place] [address] 60428 #### HA1C #### [facility] ([id number]) [address], [address] [place] [address] MAGNESIUMon 08-05-2024 Magnesium [Mass/Vol] 2.1 mg/dL Normal 1.8-2.[address] [facility] Comment on above: Performed By: #### C DIMA, 93685-2, CMP #### [facility] ([id number]) [address] [place] [address] 53580 #### HA1C #### [facility] ([id number]) [address] [facility], [address] [place] [address] MR BRAIN WO CONTon MR BRAIN WO [...] Pelayo MD on 08/05/2024 10:34 AM Normal [facility] PLATELET COUNT AND MPVon Platelet mean volume (Bld) [Entitic vol] 8.3 fL Normal 7-12 [facility] Comment on above: Performed By: #### C DIMA, 82296-3, CMP #### [facility] ([id number]) [address] [place] [address] 63189 #### HA1C #### [facility] ([id number]) [address] [facility], [address] [place] [address] Platelets (Bld) [#/Vol] 335 10*3/uL Normal 150-450 [facility] Comment on above: Performed By: #### Jaimee CH, 34585-1, CMP #### [facility] ([id number]) [address] [place] [address] 21402 #### HA1C #### [facility] ([id number]) [facility], [address] [place] [address] PROTIME AND INRon 08-05-2024 INR Coag (PPP) [Relative time] 1.0 {INR} Normal 0.8-1.1 [facility] Comment on above: Performed By: #### aJimee CH, 16699-0, CMP #### [facility] ([id number]) [address] [place] [address] 50778 #### HA1C #### [facility] ([id number]) [address] [place] [address], [address] [place] [address] PT Coag (PPP) [Time] 11.7 s Normal 9.8-13.[address] [facility] Comment on above: Result Comment: NEW REFERENCE RANGE Performed By: #### Jaimee CH, 48915-4, CMP #### [facility] ([id number]) [address] [place] [address] 30410 #### HA1C #### [facility] ([id number]) [facility], [address] [place] [address] aPTT Coag (PPP) [Time]on aPTT Coag (Bld) [Time] 81 s High 26-37 [facility] Comment on above: Result Comment: NEW REFERENCE RANGE Performed By: #### Jaimee CH, 08852-0, CMP #### [facility] ([id number]) [address] [place] [address] 42045 #### HA1C #### [facility] ([id number]) [address] [facility], [address] [place] [address] CBC AND AUTO DIFFon 08-04-20 24 ABSOLUTE BASOPHIL 0.0 X10E9/L Normal 0.0-0.2 [facility] Comment on above: Performed By: #### Jaimee BCA, CMP, 33386-5 ####[facility] ([id number])[address] [place], [place] [address]#### 66986-9, 2088-11 ####[facility] ([id number])[address] [place] [address], [address] [place] [address] 77773 ABSOLUTE NEUTROPHIL 2.8 X10E9/L Normal 1.5-6.[address] [facility] Comment on above: Performed By: #### Jaimee BCA, CMP, ####[facility] ([id number])[address] [place], [place] [address]#### 97956-1, 2088-11 ####[facility] ([id number])[address] [place] [address], [address] [place] [address] 20713 Basophils/100 WBC (Bld) 0.4 % Normal [facility] Comment on above: Performed By: #### Jaimee BCA, CMP, ####[facility] ([id number])[address] [place] [address] 42976#### 26933-2, 2088-11 ####[facility] ([id number])[facility] [address] [place] [address] Eosinophils (Bld) [#/Vol] 0.2 10*3/uL Normal 0.0-0.4 [facility] Comment on above: Performed By: #### Jaimee BCA, CMP, ####[facility] ([id number])[address] [place] [address]#### 34654-6, 2088-11 ####[facility] ([id number])[address] [place] [address] Eosinophils/100 WBC (Bld) 2.8 % Normal [facility] Comment on above: Performed By: #### Jaimee CH CMP, 16839-2 ####[facility] ([id number])[address] [place] [address] 48568#### 81667-8, 2088-11 ####[facility] ([id number])[address] [place] [address], [address] [address] Erythrocyte distribution width (RBC) [Ratio] 15.1 % High 11.5-15.0 [facility] Comment on above: Performed By: #### Jaimee CH CMP, ####[facility] ([id number])[address] [place] [address] 53711#### 70561-2, 2088-11 ####[facility] ([id number])[address] [place] [address] Hematocrit (Bld) [Volume fraction] 33.6 % Low 35-47 [facility] Comment on above: Performed By: #### Jaimee CH CMP, ####[facility] ([id number])[address] [place] [address] 84714#### 57954-8, 2088-11 ####[facility] ([id number])[facility] [address] [address] Hemoglobin (Bld) [Mass/Vol] 11.3 g/dL Low 11.7-15.5 [facility] Comment on above: Performed By: #### Jaimee CH CMP, ####[facility] ([id number])[address] [place] [address] 69759#### 20454-8, 2088-11 ####[facility] ([id number])[address], [address] [place] [address]502 Lymphocytes (Bld) [#/Vol] 2.3 10*3/uL Normal 1.0-3.5 [facility] Comment on above: Performed By: #### C BCA, CMP, ####[facility] ([id number])[address] [place] [address] 32162#### 66795-3, 2088-11 ####[facility] ([id number])[address] [address] Lymphocytes/100 WBC (Bld) 41.0 % Normal [facility] Comment on above: Performed By: #### Jaimee BCA, CMP, ####[facility] ([id number])[address] [place] [address] 64807#### 26452-3, 2088-11 ####[facility] ([id number])[address] [facility] [address] [place] [address] 55145 MCH (RBC) [Entitic mass] 28.4 pg Normal 27-34 [facility] Comment on above: Performed By: #### Jaimee BCA, CMP, ####[facility] ([id number])[address] [place] [address] 24230#### 47096-9, 2088-11 ####[facility] ([id number])[address] [facility], [address] [place] [address] 56300 MCHC (RBC) [Mass/Vol] 33.6 g/dL Normal 32-36 [facility] Comment on above: Performed By: #### C BCA, CMP, ####[facility] ([id number])[address] [place] [address] 58193#### 41673-6, 2088-11 ####[facility] ([id number])[address] [facility], [address] [place] [address]1138 MCV (RBC) [Entitic vol] 85 fL Normal 80-100 [facility] Comment on above: Performed By: #### C BCA, CMP, ####[facility] ([id number])[address] [place] [address] 86304#### 62782-2, 2088-11 ####[facility] ([id number])[address] [place] [address], [address] [place] [address] 18904 Monocytes (Bld) [#/Vol] 0.4 10*3/uL Normal 0-0.9 [facility] Comment on above: Performed By: #### Jaimee BCA, CMP, ####[facility] ([id number])[address] [place] [address] 56195#### 09059-2, 2088-11 ####[facility] ([id number])[address] [place] [address], [address] [place] [address] 38733 Monocytes/100 WBC (Bld) 6.6 % Normal [facility] Comment on above: Performed By: #### Jaimee BCA, CMP, ####[facility] ([id number])[address] [place] [address] 66808#### 73922-9, 2088-11 ####[facility] ([id number])[address] [facility], [address] [place] [address] 07110 Neutrophils/100 WBC (Bld) 49.2 % Normal [facility] Comment on above: Performed By: #### Jaimee BCA, CMP, ####[facility] ([id number])[address] [place] [address]#### 10056-0, 2088-11 ####[facility] ([id number])[address] [place] [address], [address] [place] [address] 02258 Platelet mean volume (Bld) [Entitic vol] 8.3 fL Normal 7-12 [facility] Comment on above: Performed By: #### Jaimee CH CMP, ####[facility] ([id number])[address] [place] [address] 40182#### 06785-5, 2088-11 ####[facility] ([id number])[address] [place] [address], [address] [place] [address] 634[address] Platelets (Bld) [#/Vol] 311 10*3/uL Normal 150-450 [facility] Comment on above: Performed By: #### Jaimee CH CMP, ####[facility] ([id number])[address] [place] [address] 81327#### 68662-9, 2088-11 ####[facility] ([id number])[address] [place] [address], [address] [address] RBC COUNT 3.97 X10E12/L Normal 3.80-5.20 [facility] Comment on above: Performed By: #### Jaimee CH CMP, ####[facility] ([id number])[address] [place] [address] 87906#### 29501-8, 2088-11 ####[facility] ([id number])[address] [place] [address], [address] [place] [address]258 WBC (Bld) [#/Vol] 5.7 10*3/uL Normal 4.0-11.0 [facility] Comment on above: Performed By: #### Jaimee CH, CMP, ####[facility] ([id number])[address] [place] [address] 48425#### 75613-1, 2088-11 ####[facility] ([id number])[address] [facility], [address] [address] COMPREHENSIVE METABOLIC PANE Chay 08-04-2024 Albumin [Mass/Vol] 3.5 g/dL Normal 3.2-5.3 [facility] Comment on above: Performed By: #### C BCA, CMP, ####[facility] ([id number])[address] [place] [address] 76047#### 79061-0, 2088-11 ####[facility] ([id number])0 [facility], [address] [place] [address] 21586 ALP [Catalytic activity/Vol] 85 U/L Normal 39-130 [facility] Comment on above: Performed By: #### C BCA, CMP, ####[facility] ([id number])[address] [place] [address] 18855#### 40271-2, 2088-11 ####[facility] ([id number])[address] [facility], [address] [place] [address] 95349 ALT [Catalytic activity/Vol] 15 U/L Normal 0-31 [facility] Comment on above: Performed By: #### C BCA, CMP, ####[facility] ([id number])[address] [place] [address] 36973#### 56290-0, 2088-11 ####[facility] ([id number])[address] [facility], SUITE [facility][note 3][place] [address] Anion gap [Moles/Vol] 9 mmol/L Normal 5-15 [facility] Comment on above: Performed By: #### C BCA, CMP, ####[facility] ([id number])[address] [place] [address] 78553#### 79719-0, 2088-11 ####[facility] ([id number])[address] [facility], [address] [place] [address] 26423 AST [Catalytic activity/Vol] 13 U/L Normal 0-41 [facility] Comment on above: Performed By: #### C BCA, CMP, 79949-4 ####[facility] ([id number])[address] [place] [address] 64266#### 90551-3, 2088-11 ####[facility] ([id number])[address] [place] [address], [address] [place] [address] Bilirubin [Mass/Vol] 0.5 mg/dL Normal 0.3-1.[address] [facility] Comment on above: Performed By: #### C BCA, CMP, ####[facility] ([id number])[address] [place] [address] 56368#### 55555-2, 2088-11 ####[facility] ([id number])[address] [place] [address], [address] [place] [address] Calcium [Mass/Vol] 9.0 mg/dL Normal 8.5-10.5 [facility] Comment on above: Performed By: #### C BCA, CMP, ####[facility] ([id number])[address] [place] [address] 54177#### 03638-2, 2088-11 ####[facility] ([id number])[address] [place] [address], [address] [place] [address] 75698 Chloride [Moles/Vol] 103 mmol/L Normal 98-109 [facility] Comment on above: Performed By: #### C BCA, CMP, ####[facility] ([id number])[address] [place] [address] 08826#### 93483-6, 2088-11 ####[facility] ([id number])[address] [facility], [address] [address] CO2 [Moles/Vol] 21 mmol/L Low 22-32 [facility] Comment on above: Performed By: #### C GERMANIA CH, 04723-3 ####[facility] ([id number])[address] [place] [address] 31752#### 67100-9, 2088-11 ####[facility] ([id number])[address] [address] Creatinine [Mass/Vol] 1.85 mg/dL High 0.40-1.00 [facility] Comment on above: Result Comment: METH OD TRACEABLE TO IDMS STANDARD Performed By: #### C DIMA, GERMANIA, ####[facility] ([id number])[address] [place] [address] 19475#### 59115-3, 2088-11 ####[facility] ([id number])[address] [address] GFR/1.73 sq M.predicted among non-blacks MDRD (S/P/Bld) [Vol rate/Area] 32 mL/min/{1.73_m2} Low >59 [facility] Comment on above: Result Comment: Reported eGFR is based on the CKD-EPI 2020 equation that does not use a race coefficient. Performed By: #### C BCA, CMP, ####[facility] ([id number])[address] [place] [address] 45778#### 95526-5, 2088-11 ####[facility] ([id number])[address] [address] Glucose [Mass/Vol] 185 mg/dL High 65-99 [facility] Comment on above: Performed By: #### C BCA, CMP, ####[facility] ([id number])[address] [place] [address] 08723#### 42409-6, 2088-11 ####[facility] ([id number])[address], [address] [address] Potassium [Moles/Vol] 4.1 mmol/L Normal 3.5-5.0 [facility] Comment on above: Performed By: #### C BCA, CMP, ####[facility] ([id number])[address] [place] [address] 77582#### 67761-8, 2088-11 ####[facility] ([id number])[address], [address] [place] [address] Protein [Mass/Vol] 6.7 g/dL Normal 6.0-8.0 [facility] Comment on above: Performed By: #### Jaimee CH, CMP, ####[facility] ([id number])[address] [place] [address] 74563#### 14013-1, 2088-11 ####[facility] ([id number])[address], [address] [place] [address] Sodium [Moles/Vol] 133 mmol/L Low 134-146 [facility] Comment on above: Performed By: #### C BCA, CMP, ####[facility] ([id number])[address] [place] [address] 03149#### 29530-6, 2088-11 ####[facility] ([id number])[address], [address] [address] Urea nitrogen [Mass/Vol] 39 mg/dL High 5-23 [facility] Comment on above: Performed By: #### Jaimee CH, GERMANIA, 64258-1 ####[facility] ([id number])[address] [place] [address] 39547#### 76158-2, 1 ####[facility] ([id number])[address] [facility], [address] [address] DIRECT LDLon 08-04-2024 Cholesterol in LDL [Mass/Vol] 105 mg/dL Normal <130 [facility] Comment on above: Result Comment: LDL <100 mg/dL - Desirable LDL 130-159 mg/dL - Borderline High Risk LDL >160 mg/dL - High Risk Performed By: #### C DIMA, GERMANIA, 71080-6 ####[facility] ([id number])[address] [place] [address] 79808#### 73847-2, 2088-11 ####[facility] ([id number])[address], [address] [address] Glucose Glucometer (BldC) [M ass/Vol]on 08-04-2024 Glucose [Mass/Vol] 221 mg/dL High 65-99 [facility] Glucose [Mass/Vol] 247 mg/dL High 65-99 [facility] Glucose [Mass/Vol] 253 mg/dL High 65-99 [facility] Lipid 1996 panelon Cholesterol [Mass/Vol] 240 mg/dL High 150-200 [facility] Comment on above: Performed By: #### Jaimee CH, CMP, 23439-9 ####[facility] ([id number])[address] [place] [address] 34959#### 00505-8, 2088-11 ####[facility] ([id number])[address] [address] [place] [address] Cholesterol in HDL [Mass/Vol] 38 mg/dL Low >39 [facility] Comment on above: Result Comment: HDL <40 mg/dL - High Risk HDL > or = 40mg/dL- Desirable HDL >60 mg/dL - Negative Risk Performed By: #### Jaimee CH CMP, ####[facility] ([id number])[address] [place] [address] 50676#### 77135-1, 2088-11 ####[facility] ([id number])[address] [address] Cholesterol in VLDL [Mass/Vol] 156 mg/dL High 0-30 [facility] Comment on above: Performed By: #### Jaimee CH, [facility], ####[facility] ([id number])[address] [place] [address] 11171#### 61757-3, 2088-11 ####[facility] ([id number])[address] [address] CHOLESTEROL:HDL 6.3 High 1.0-5.0 [facility] Comment on above: Performed By: #### Jaimee CH, CMP, ####[facility] ([id number])[address] [place] [address] 98027#### 10788-9, 2088-11 ####[facility] ([id number])[address] [address] LDL (CALC) RESULT NOT REPORTED DUE TO HIGH TRIGLYCERIDE Normal <130 [facility] Comment on above: Performed By: #### C BCA, CMP, 52223-3 ####[facility] ([id number])[address] [place] [address] 65002#### 92765-4, 2088-11 ####[facility] ([id number])[address] [facility], [address] [place] [address] Triglyceride [Mass/Vol] 782 mg/dL High 27-150 [facility] Comment on above: Performed By: #### C BCA, CMP, ####[facility] ([id number])[address] [place] [address] 02950#### 44980-8, 2088-11 ####[facility] ([id number])[address] [facility], [address] [place] [address] MAGNESIUMon 08-04-2024 Magnesium [Mass/Vol] 2.3 mg/dL Normal 1.8-2.[address] [facility] Comment on above: Performed By: #### C DIMA, 62780-5, CMP #### [facility] ([id number]) [address] [place] [address] #### HA1C #### [facility] ([id number]) [address] [facility], [address] [place] [address] Magnesium [Mass/Vol] 1.6 mg/dL Low 1.8-2.[address] [facility] Comment on above: Performed By: #### C BCA, CMP, 68136-6 ####[facility] ([id number])[address] [place] [address] 72839#### 89317-8, 2088-11 ####[facility] ([id number])[address] [facility], [address] [place] [address] CBC AND AUTO DIFFon 09-28-20 24 ABSOLUTE BASOPHIL 0.1 X10E9/L Normal 0.0-0.2 [facility] Comment on above: Performed By: #### Jaimee CH, 01719-3, CMP #### [facility] ([id number]) [address] [place] [address] #### HA1C #### [facility] ([id number]) [address], [address] [place] [address] ABSOLUTE NEUTROPHIL 4.2 X10E9/L Normal 1.5-6.[address] [facility] Comment on above: Performed By: #### Jaimee CH, 02576-9, CMP #### [facility] ([id number]) [address] [place] [address] #### HA1C #### [facility] ([id number]) [address], [address] [place] [address] Basophils/100 WBC (Bld) 0.7 % Normal [facility] Comment on above: Performed By: #### Jaimee CH, 20558-5, CMP #### [facility] ([id number]) [address] [place] [address]65 #### HA1C #### [facility] ([id number]) [address], [address] [place] [address] Eosinophils (Bld) [#/Vol] 0.1 10*3/uL Normal 0.0-0.4 [facility] Comment on above: Performed By: #### Jaimee CH, 08477-4, CMP #### [facility] ([id number]) [address] [place] [address] 21595 #### HA1C #### [facility] ([id number]) [address], [address] [place] [address] Eosinophils/100 WBC (Bld) 1.9 % Normal [facility] Comment on above: Performed By: #### C DIMA, 78268-6, CMP #### [facility] ([id number]) [address] [place] [address] 633[address] #### HA1C #### [facility] ([id number]) [address], [address] [place] [address] Erythrocyte distribution width (RBC) [Ratio] 15.1 % High 11.5-15.0 [facility] Comment on above: Performed By: #### C DIMA, 15751-6, CMP #### [facility] ([id number]) [address] [place] [address] 47392 #### HA1C #### [facility] ([id number]) [address], [address] [place] [address] Hematocrit (Bld) [Volume fraction] 35.2 % Normal 35-47 [facility] Comment on above: Performed By: #### C DIMA, 51516-1, CMP #### [facility] ([id number]) [address] [place] [address]7068 #### HA1C #### [facility] ([id number]) [address], [address] [place] [address] Hemoglobin (Bld) [Mass/Vol] 11.9 g/dL Normal 11.7-15.5 [facility] Comment on above: Performed By: #### C DIMA, 73416-7, CMP #### [facility] ([id number]) [address] [place] [address] 85084 #### HA1C #### [facility] ([id number]) [address] [place] [address] Lymphocytes (Bld) [#/Vol] 2.6 10*3/uL Normal 1.0-3.5 [facility] Comment on above: Performed By: #### C DIMA, 26439-6, CMP #### [facility] ([id number]) [address] [place] [address] #### ARUN #### [facility] ([id number]) [address], [address] [place] [address] Lymphocytes/100 WBC (Bld) 34.7 % Normal [facility] Comment on above: Performed By: #### Jaimee CH, 35222-7, CMP #### [facility] ([id number]) [address] [place] [address] #### ARUN #### [facility] ([id number]) [address], [address] [place] [address] MCH (RBC) [Entitic mass] 28.8 pg Normal 27-34 [facility] Comment on above: Performed By: #### Jaimee CH, 95299-3, CMP #### [facility] ([id number]) [address] [place] [address]78 #### ARUN #### [facility] ([id number]) [address], [address] [place] [address] MCHC (RBC) [Mass/Vol] 33.8 g/dL Normal 32-36 [facility] Comment on above: Performed By: #### Jaimee CH, 93960-1, CMP #### [facility] ([id number]) [address] [place] [address]134 #### HALulu #### [facility] ([id number]) [address], [address] [place] [address] MCV (RBC) [Entitic vol] 85 fL Normal 80-100 [facility] Comment on above: Performed By: #### Jaimee CH, 69205-8, CMP #### [facility] ([id number]) [address] [place] [address] 38057 #### HA1C #### [facility] ([id number]) [address] [place] [address], [address] [place] [address] Monocytes (Bld) [#/Vol] 0.5 10*3/uL Normal 0-0.9 [facility] Comment on above: Performed By: #### Jaimee CH, 79864-1, CMP #### [facility] ([id number]) [address] [place] [address] 34693 #### HA1C #### [facility] ([id number]) [address] [place] [address], [address] [place] [address] Monocytes/100 WBC (Bld) 6.3 % Normal [facility] Comment on above: Performed By: #### Jaimee CH, 09357-4, CMP #### [facility] ([id number]) [address] [place] [address] 41058 #### HA1C #### [facility] ([id number]) [address] [place] [address], [address] [place] [address] Neutrophils/100 WBC (Bld) 56.4 % Normal [facility] Comment on above: Performed By: #### Jaimee CH, 28336-9, CMP #### [facility] ([id number]) [address] [place] [address] 90231 #### HA1C #### [facility] ([id number]) [address] [place] [address], [address] [place] [address] Platelet mean volume (Bld) [Entitic vol] 8.4 fL Normal 7-12 [facility] Comment on above: Performed By: #### Jaimee CH, 64402-4, CMP #### [facility] ([id number]) [address] [place] [address] 11863 #### HA1C #### [facility] ([id number]) [address] [facility], [address] [place] [address] Platelets (Bld) [#/Vol] 344 10*3/uL Normal 150-450 [facility] Comment on above: Performed By: #### Jaimee CH, 69563-5, CMP #### [facility] ([id number]) [address] [place] [address] 64385 #### HA1C #### [facility] ([id number]) [address] [facility], [address] [place] [address] RBC COUNT 4.13 X10E12/L Normal 3.80-5.20 [facility] Comment on above: Performed By: #### Jaimee CH, 43574-3, CMP #### [facility] ([id number]) [address] [place] [address] 59257 #### ARUN #### [facility] ([id number]) [address] [place] [address], [address] [place] [address] WBC (Bld) [#/Vol] 7.5 10*3/uL Normal 4.0-11.0 [facility] Comment on above: Performed By: #### Jaimee CH, 13759-6, CMP #### [facility] ([id number]) [address] [place] [address] 32196 #### HA1C #### [facility] ([id number]) [address] [place] [address], [address] [place] [address] COMPREHENSIVE METABOLIC PANE Chay 08-03-2024 Albumin [Mass/Vol] 3.7 g/dL Normal 3.2-5.3 [facility] Comment on above: Performed By: #### Jaimee CH, 73719-6, CMP #### [facility] ([id number]) [address] [place] [address] 83264 #### HA1C #### [facility] ([id number]) [address], [address] [place] [address] ALP [Catalytic activity/Vol] 96 U/L Normal 39-130 [facility] Comment on above: Performed By: #### Jaimee CH, 16245-6, CMP #### [facility] ([id number]) [address] [place] [address] 30415 #### HA1C #### [facility] ([id number]) [address], [address] [place] [address] ALT [Catalytic activity/Vol] 17 U/L Normal 0-31 [facility] Comment on above: Performed By: #### Jaimee CH, 73544-5, CMP #### [facility] ([id number]) [address] [place] [address] 98735 #### HALulu #### [facility] ([id number]) [address], [address] [place] [address] Anion gap [Moles/Vol] 11 mmol/L Normal 5-15 [facility] Comment on above: Performed By: #### Jaimee CH, 80725-7, CMP #### [facility] ([id number]) [address] [place] [address] 87137 #### HALulu #### [facility] ([id number]) [address], [address] [place] [address] AST [Catalytic activity/Vol] 14 U/L Normal 0-41 [facility] Comment on above: Performed By: #### Jaimee CH, 49372-7, CMP #### [facility] ([id number]) [address] [place] [address] 34547 #### HA1C #### [facility] ([id number]) [address], [address] [place] [address] Bilirubin [Mass/Vol] 0.6 mg/dL Normal 0.3-1.[address] [facility] Comment on above: Performed By: #### C BCA, 64368-2, CMP #### [facility] ([id number]) [address] [place] [address] 61922 #### HA1C #### [facility] ([id number]) [address], [address] [place] [address] Calcium [Mass/Vol] 9.1 mg/dL Normal 8.5-10.5 [facility] Comment on above: Performed By: #### C BCA, 13811-0, CMP #### [facility] ([id number]) [address] [place] [address] 97443 #### HA1C #### [facility] ([id number]) [address], [address] [place] [address] Chloride [Moles/Vol] 99 mmol/L Normal 98-[address] [facility] Comment on above: Performed By: #### C BCA, 63392-8, CMP #### [facility] ([id number]) [address] [place] [address] 67652 #### HA1C #### [facility] ([id number]) [address], [address] [place] [address] CO2 [Moles/Vol] 20 mmol/L Low 22-32 [facility] Comment on above: Performed By: #### C BCA, 23388-7, CMP #### [facility] ([id number]) [address] [place] [address] 48272 #### HA1C #### [facility] ([id number]) [address] [place] [address] Creatinine [Mass/Vol] 2.19 mg/dL High 0.40-1.00 [facility] Comment on above: Result Comment: METH OD TRACEABLE TO IDMS STANDARD Performed By: #### C DIMA, 03566-6, CMP #### [facility] ([id number]) [address] [place] [address] 41526 #### HA1C #### [facility] ([id number]) [address], [address] [place] [address] GFR/1.73 sq M.predicted among non-blacks MDRD (S/P/Bld) [Vol rate/Area] 26 mL/min/{1.73_m2} Low >59 [facility] Comment on above: Result Comment: Reported eGFR is based on the CKD-EPI 2020 equation that does not use a race coefficient. Performed By: #### C DIMA, 25652-1, CMP #### [facility] ([id number]) [address] [place] [address] 03436 #### HA1C #### [facility] ([id number]) [address], [address] [place] [address] Glucose [Mass/Vol] 402 mg/dL Critically high 65-99 [facility] Comment on above: Performed By: #### C DIMA, 50079-7, CMP #### [facility] ([id number]) [address] [place] [address] 76592 #### HA1C #### [facility] ([id number]) [address], [address] [place] [address] Potassium [Moles/Vol] 4.4 mmol/L Normal 3.5-5.0 [facility] Comment on above: Performed By: #### C DIMA, 08145-8, CMP #### [facility] ([id number]) [address] [place] [address] 78214 #### HA1C #### [facility] ([id number]) [address], [address] [place] [address] Protein [Mass/Vol] 7.7 g/dL Normal 6.0-8.0 [facility] Comment on above: Performed By: #### C DIMA, 43791-7, CMP #### [facility] ([id number]) [address] [place] [address] 34557 #### HA1C #### [facility] ([id number]) [address] [facility], [address] [place] [address] Sodium [Moles/Vol] 130 mmol/L Low 134-146 [facility] Comment on above: Performed By: #### C DIMA, 11124-7, CMP #### [facility] ([id number]) [address] [place] [address] 71108 #### HA1C #### [facility] ([id number]) [address] [facility], [address] [place] [address] Urea nitrogen [Mass/Vol] 44 mg/dL High 5-23 [facility] Comment on above: Performed By: #### C DIMA, 36837-0, CMP #### [facility] ([id number]) [address] [place] [address] 36547 #### HA1C #### [facility] ([id number]) [address] [facility], [address] [place] [address] CT BRAIN WO CONT STROKE ALER Ton [...] Contreras MD on 08/03/2024 5:07 PM Normal [facility] CT CTA CAROTIDon 08-03-2024 CT CTA [...] Pack MD on 08/03/2024 5:34 PM Normal [facility] CT CTA HEADon 08-03-[address] CTA HEAD CTA HEAD HISTORY: Blurry vision, worst headache of life COMPARISON: 12/25/2021 TECHNIQUE: CT angiogram performed following intravenous administration of 100 mL Omnipaque 350. Coronal and sagittal and 3-D volume rendered maximum intensity projection images generated and reviewed under concurrent physician supervision. The [place] Symptomatic Carotid Endarterectomy Trial (NASCET) method for [...] Contreras MD on 08/03/2024 5:29 PM Normal [facility] Glucose Glucometer (BldC) [M ass/Vol]on 08-03-2024 Glucose [Mass/Vol] 227 mg/dL High 65-99 [facility] Glucose [Mass/Vol] 369 mg/dL High 65-99 [facility] HGB A1C (GLYCO-HGB)on 2023 Glucose [Mass/Vol] 226 mg/dL Normal [facility] Comment on above: Performed By: #### C [facility], 90763-4, CMP #### [facility] ([id number]) [address] [place] [address] #### HA1C #### [facility] ([id number]) [address] [place] [address], [address] [place] [address] HbA1c (Bld) [Mass fraction] 9.5 % High 4.4-5.6 [facility] Comment on above: Result Comment: NOTE ADA Guidelines Result HgbA1c Normal : less than 5.7 % Prediabetes : 5.7 % to 6.4 % Diabetes : > 6.4 % Use with caution in patients with abnormal hemoglobin variants as the half-life of red blood cells and in vivo glycation rates are affected. Performed By: #### C [facility], 11037-0, CMP #### [facility] ([id number]) [address] [place] [address] #### HA1C #### [facility] ([id number]) [address] [place] [address], [address] [place] [address] THYROID PROFILEon 08-03-2024 Free T4 [Mass/Vol] 0.81 ng/dL Normal 0.61-1.60 [facility] Comment on above: Performed By: #### 8 9579-7, THYR ####[facility] ([id number])[address] [place] [address] TSH 3.32 uIU/mL Normal 0.49-4.67 [facility] Comment on above: Performed By: #### 8 9579-7, THYR ####[facility] ([id number])[address] [place] [address] Troponin I.cardiac High sens itivity method [Mass/Vol]on 08-03-2024 1 HOUR TROP I, HIGH SENSITIVITY 3 ng/L Normal <16 [facility] Comment on above: Performed By: #### 8 9579-7, THYR #### [facility] ([id number]) [address] [place] [address], [place] [address] TROPONIN I, HIGH SENSITIVITY 4 ng/L Normal <16 [facility] Comment on above: Performed By: #### C BCA, 71503-9, CMP #### [facility] ([id number]) [address] [place] [address], [place] [address] #### HA1C #### [facility] ([id number]) [address] [place] [address], [address] [place] [address] URINALYSISon 08-03-2024 Bilirubin Ql (U) Negative Normal NEG [facility] Comment on above: Performed By: #### U A ####[facility] ([id number])[address] [place] [address] BLOOD/HGB Negative Normal NEG [facility] Comment on above: Performed By: #### U A ####[facility] ([id number])[address] [place] [address], [place] [address] Color (U) YELLOW Normal YELLOW [facility] Comment on above: Performed By: #### U A ####[facility] ([id number])[address] [place] [address] Glucose Ql (U) 500 mg/dL Abnormal NEG [facility] Comment on above: Performed By: #### U A ####[facility] ([id number])[address] [place] [address], [place] [address] Ketones Ql (U) Negative Normal NEG [facility] Comment on above: Performed By: #### U A ####[facility] ([id number])[address] [place] [address], [place] [address] Leukocyte esterase Test strip Ql (U) Trace Abnormal NEG [facility] Comment on above: Performed By: #### U A ####[facility] ([id number])[address] [place] [address] Nitrite Ql (U) Negative Normal NEG [facility] Comment on above: Performed By: #### U A ####[facility] ([id number])[address] [place] [address] 18486 pH (U) 6.0 [pH] Normal 5.0-8.5 [facility] Comment on above: Performed By: #### U A ####[facility] ([id number])[address] [place] [address]221 Protein Ql (U) Negative Normal NEG [facility] Comment on above: Performed By: #### U A ####[facility] ([id number])[address] [place] [address] 85323 R.B.CELLS 1 /hpf Normal 0-5 [facility] Comment on above: Performed By: #### U A ####[facility] ([id number])[address] [place] [address]8705 Specific gravity (U) [Rel density] 1.010 Normal 1.003-1.035 [facility] Comment on above: Performed By: #### U A ####[facility] ([id number])[address] [place] [address] SQUAMOUS EPITHELIUM 3 /hpf Normal 0-5 [facility] Comment on above: Performed By: #### U A ####[facility] ([id number])[address] [place] [address] 11888 TURBIDITY CLEAR Normal CLEAR [facility] Comment on above: Performed By: #### U A ####[facility] ([id number])[address] [place] [address] 31273 Urobilinogen Qn (U) 0.2 {Juanita'U}/dL Normal <1.1 [facility] Comment on above: Performed By: #### U A ####[facility] ([id number])[address] [place] [address] 55453 W.B.CELLS 4 /hpf Normal 0-5 [facility] Comment on above: Performed By: #### U A ####[facility] ([id number])[address] [place] [address] URN MACROSCOPIC NURon 2023 BILIRUBIN LE Negative Normal NEG [facility] Comment on above: Performed By: #### N UM #### [facility] ([id number]) [address] [place] [address]7875 BLOOD/HGB LE Negative Normal NEG [facility] Comment on above: Performed By: #### N UM #### [facility] ([id number]) [address] [place] [address]58[address] GLUCOSE LE 500 mg/dL Abnormal NEG [facility] Comment on above: Performed By: #### N UM #### [facility] ([id number]) [address] [place] [address] [place] [address] KETONES LE Negative Normal NEG [facility] Comment on above: Performed By: #### N UM #### [facility] ([id number]) [address] [place] [address] 60128 LEUKOCYTE ESTERASE LE Small Abnormal NEG [facility] Comment on above: Performed By: #### N UM #### [facility] ([id number]) [address] [place] [address] 85333 NITRITE LE Negative Normal NEG [facility] Comment on above: Performed By: #### N UM #### [facility] ([id number]) [address] [place] [address] 14762 PH LE 5.5 Normal 5.0-8.5 [facility] Comment on above: Performed By: #### N UM #### [facility] ([id number]) [address] [place] [address] 86377 PROTEIN LE Negative Normal NEG [facility] Comment on above: Performed By: #### N UM #### [facility] ([id number]) [address] [place] [address] 10504 SPECIFIC GRAVITY LE 1.010 Normal 1.003-1.035 [facility] Comment on above: Performed By: #### N UM #### [facility] ([id number]) [address] [place] [address] 64122 UROBILINOGEN LE 0.2 eu/dL Normal <1.1 [facility] Comment on above: Performed By: #### N UM #### [facility] ([id number]) [address] [place] [address] 72129 PTH INTACTon 03-11-2023 PTH, Intact 31 pg/mL Normal 15-65 [facility] Comment on above: Performed By: #### U MICRO, ERUR #### [facility] [address] [place] [address] Dr. Delmer Rea FERRITINon 03-10-2023 Ferritin [Mass/Vol] 35.0 ng/mL Normal 8.0-252.0 [facility] Comment on above: Performed By: #### L IPA, DLDL, CON, LIPID, T7, CMP, TSH #### [facility] [address] [place] [address] Dr. Delmer Rea HEMOGRAM AND PLATELon 2022 Hematocrit (Bld) [Volume fraction] 35.5 % Critically low 36.0-48.0 [facility] Comment on above: Performed By: #### L IPA, DLDL, CON, LIPID, T7, CMP, TSH #### [facility] [address] [place] [address] Dr. Delmer Rea Hemoglobin (Bld) [Mass/Vol] 11.6 g/dL Critically low 12.0-16.0 [facility] Comment on above: Performed By: #### L IPA, DLDL, CON, LIPID, T7, CMP, TSH #### [facility] [address] [place] [address] Dr. Delmer Rea MCH (RBC) [Entitic mass] 27.3 pg Normal 26.7-34.0 [facility] Comment on above: Performed By: #### L IPA, DLDL, CON, LIPID, T7, CMP, TSH #### [facility] [address] [place] [address] Dr. Delmer Rea MCHC (RBC) [Mass/Vol] 32.7 g/dL Normal 29.9-35.2 [facility] Comment on above: Performed By: #### L IPA, DLDL, CON, LIPID, T7, CMP, TSH #### [facility] [address] [place] [address] Dr. Delmer Rea MCV (RBC) [Entitic vol] 83.5 fL Normal 81.0-99.0 [facility] Comment on above: Performed By: #### L IPA, DLDL, CON, LIPID, T7, CMP, TSH #### [facility] [address] [place] [address] Dr. Delmer Rea PLT 273 103/ul Normal 150-450 [facility] Comment on above: Performed By: #### L IPA, DLDL, CON, LIPID, T7, CMP, TSH #### [facility] [address] [place] [address] Dr. Delmer Rea RBC 4.25 106/ul Normal 4.20-5.40 [facility] Comment on above: Performed By: #### L IPA, DLDL, CON, LIPID, T7, CMP, TSH #### [facility] [address] [place] [address] Dr. Delmer Rea WBC 5.5 103/ul Normal 4.0-11.0 [facility] Comment on above: Performed By: #### L IPA, DLDL, CON, LIPID, T7, CMP, TSH #### [facility] [address] [place] [address] Dr. Delmer Rea IRON AND TIBCon 03-10-2023 % SATURATION 13.6 % Normal [facility] Comment on above: Performed By: #### L IPA, DLDL, CON, LIPID, T7, CMP, TSH #### [facility] [address] [address] [address] Delmer Rea Iron [Mass/Vol] 61.0 ug/dL Normal 50.0-170.[address] [facility] Comment on above: Performed By: #### L IPA, DLDL, CON, LIPID, T7, CMP, TSH #### [facility] [address] [address] [address] Delmer Rea TIBC DIRECT 447.0 ug/dL Normal 250.0-450.0 [facility] Comment on above: Performed By: #### L IPA, DLDL, CON, LIPID, T7, CMP, TSH #### [facility] [address] [place] [address] Dr. Delmer Rea MAGNESIUMon 03-10-2023 Magnesium [Mass/Vol] 1.7 mg/dL Critically low 1.8-2.4 [facility] Comment on above: Performed By: #### L IPA, DLDL, CON, LIPID, T7, CMP, TSH #### [facility] [address] [address] [address] Delmer Rea PHOSPHORUSon 03-10-2023 Phosphate [Mass/Vol] 4.9 mg/dL Critically high 2.6-4.7 [facility] Comment on above: Performed By: #### L IPA, DLDL, CON, LIPID, T7, CMP, TSH #### [facility] [address] [address] [address] Delmer Rea PROF 14(COMP METB)on 023 Albumin [Mass/Vol] 3.4 g/dL Normal 3.4-5.0 [facility] Comment on above: Performed By: #### L IPA, DLDL, CON, LIPID, T7, CMP, TSH #### [facility] [address] [place] [address] Dr. Delmer Rea Albumin/Globulin [Mass ratio] 0.8 {ratio} Normal [facility] Comment on above: Performed By: #### L IPA, DLDL, CON, LIPID, T7, CMP, TSH #### [facility] [address] [place] [address] Dr. Delmer Rea ALP [Catalytic activity/Vol] 102 U/L Normal 46-116 [facility] Comment on above: Performed By: #### L IPA, DLDL, CON, LIPID, T7, CMP, TSH #### [facility] [address] [place] [address] Dr. Delmer Rea ALT [Catalytic activity/Vol] 28 U/L Normal 14-59 [facility] Comment on above: Performed By: #### L IPA, DLDL, CON, LIPID, T7, CMP, TSH #### [facility] [address] [place] [address] Dr. Delmer Rea Anion gap [Moles/Vol] 15.1 mmol/L Normal [facility] Comment on above: Performed By: #### L IPA, DLDL, CON, LIPID, T7, CMP, TSH #### [facility] [address] [place] [address] Dr. Delmer Rea AST [Catalytic activity/Vol] 16 U/L Normal 15-37 [facility] Comment on above: Performed By: #### L IPA, DLDL, CON, LIPID, T7, CMP, TSH #### [facility] [address] [place] [address] Dr. Delmer Rea Bilirubin [Mass/Vol] 0.5 mg/dL Normal 0.2-1.0 [facility] Comment on above: Performed By: #### L IPA, DLDL, CON, LIPID, T7, CMP, TSH #### [facility] [address] [place] [address] Dr. Delmer Rea Calcium [Mass/Vol] 9.5 mg/dL Normal 8.5-10.1 [facility] Comment on above: Performed By: #### L IPA, DLDL, CON, LIPID, T7, CMP, TSH #### [facility] [address] [place] [address] Dr. Delmer Rea Chloride [Moles/Vol] 100 mmol/L Normal 98-107 [facility] Comment on above: Performed By: #### L IPA, DLDL, CON, LIPID, T7, CMP, TSH #### [facility] [address] [address] [address] Delmer Rea CO2 [Moles/Vol] 23.4 mmol/L Normal 21.0-32.0 [facility] Comment on above: Performed By: #### L IPA, DLDL, CON, LIPID, T7, CMP, TSH #### [facility] [address] [place] [address] Dr. Delmer Rea Creatinine [Mass/Vol] 1.86 mg/dL Critically high 0.55-1.02 [facility] Comment on above: Performed By: #### L IPA, DLDL, CON, LIPID, T7, CMP, TSH #### [facility] [address] [place] [address] Dr. Delmer Rea EGFR-AF SLOVAK 35 mL/min/1.73m2 Critically low >=60 [facility] Comment on above: Performed By: #### L IPA, DLDL, CON, LIPID, T7, CMP, TSH #### [facility] [address] [place] [address] Dr. Delmer Rea EGFR-NON AF [place]OVAK 29 mL/min/1.73m2 Critically low >=60 [facility] Comment on above: Performed By: #### L IPA, DLDL, CON, LIPID, T7, CMP, TSH #### [facility] [address] [place] [address] Dr. Delmer Rea Globulin (S) [Mass/Vol] 4.3 g/dL Normal [facility] Comment on above: Performed By: #### L IPA, DLDL, CON, LIPID, T7, CMP, TSH #### [facility] [address] [place] [address] Dr. Delmer Rea Glucose [Mass/Vol] 197 mg/dL Critically high 74-106 [facility] Comment on above: Performed By: #### L IPA, DLDL, CON, LIPID, T7, CMP, TSH #### [facility] [address] [address] [address] Delmer Rea Potassium [Moles/Vol] 4.5 mmol/L Normal 3.5-5.1 [facility] Comment on above: Performed By: #### L IPA, DLDL, CON, LIPID, T7, CMP, TSH #### [facility] [address] [place] [address] Dr. Delmer Rea Protein [Mass/Vol] 7.7 g/dL Normal 6.4-8.2 [facility] Comment on above: Performed By: #### L IPA, DLDL, CON, LIPID, T7, CMP, TSH #### [facility] [address] [place] [address] Dr. Delmer Rea Sodium [Moles/Vol] 134 mmol/L Critically low 136-145 [facility] Comment on above: Performed By: #### L IPA, DLDL, CON, LIPID, T7, CMP, TSH #### [facility] [address] [place] [address] Dr. Delmer Rea Urea nitrogen [Mass/Vol] 40.0 mg/dL Critically high 7.0-18.0 [facility] Comment on above: Performed By: #### L IPA, DLDL, CON, LIPID, T7, CMP, TSH #### [facility] [address] [place] [address] Dr. Delmer Rea Urea nitrogen/Creatinine [Mass ratio] 21.5 mg/mg Normal [facility] Comment on above: Performed By: #### L IPA, DLDL, CON, LIPID, T7, CMP, TSH #### [facility] [address] [place] [address] Dr. Delmer Rea URIC ACID SERUMon 03-10-2023 Urate [Mass/Vol] 7.1 mg/dL Critically high 2.6-6.0 [facility] Comment on above: Performed By: #### L IPA, DLDL, CON, LIPID, T7, CMP, TSH #### [facility] [address] [place] [address] Dr. Delmer Rea VIT B12 AND FOLATEon 023 Cobalamin (Vitamin B12) [Mass/Vol] 369.0 pg/mL Normal 193.0-986.0 [facility] Comment on above: Performed By: #### L IPA, DLDL, CON, LIPID, T7, CMP, TSH #### [facility] [address] [address] [address] Delmer Rea FOLATE 20.30 ng/mL Normal 8.60-58.90 [facility] Comment on above: Performed By: #### L IPA, DLDL, CON, LIPID, T7, CMP, TSH #### [facility] [address] [place] [address] Dr. Delmer Rea VITAMIN D 25 OHon 03-10-2023 VIT D 25-OH 13.0 ng/mL Normal [facility] Comment on above: Performed By: #### L IPA, DLDL, CON, LIPID, T7, CMP, TSH #### [facility] [address] [place] [address] Dr. Delmer Rea VIT D RANGES SEE BELOW Normal [facility] Comment on above: Result Comment: <20 ng/mL Vit D deficient 20 - <30 ng/mL Vit D insufficient 30 - 100 ng/mL Vit D sufficient >100 ng/mL Potential Toxicity Performed By: #### L IPA, DLDL, CON, LIPID, T7, CMP, TSH #### [facility] [address] [place] [address] Dr. Delmer Rea PROF 14(COMP METB)on 023 Albumin [Mass/Vol] 3.4 g/dL Normal 3.4-5.0 [facility] Comment on above: Performed By: #### L IPA, DLDL, CON, LIPID, T7, CMP, TSH #### [facility] [address] [place] [address] Dr. Delmer Rea Albumin/Globulin [Mass ratio] 0.9 {ratio} Normal [facility] Comment on above: Performed By: #### L IPA, DLDL, CON, LIPID, T7, CMP, TSH #### [facility] [address] [place] [address] Dr. Delmer Rea ALP [Catalytic activity/Vol] 95 U/L Normal 46-116 [facility] Comment on above: Performed By: #### L IPA, DLDL, CON, LIPID, T7, CMP, TSH #### [facility] [address] [address] [address] Delmer Rea ALT [Catalytic activity/Vol] 23 U/L Normal 14-59 [facility] Comment on above: Performed By: #### L IPA, DLDL, CON, LIPID, T7, CMP, TSH #### [facility] [address] [place] [address] Dr. Delmer Rea Anion gap [Moles/Vol] 15.2 mmol/L Normal [facility] Comment on above: Performed By: #### L IPA, DLDL, CON, LIPID, T7, CMP, TSH #### [facility] [address] [place] [address] Dr. Delmer Rea AST [Catalytic activity/Vol] 8 U/L Critically low 15-37 [facility] Comment on above: Performed By: #### L IPA, DLDL, CON, LIPID, T7, CMP, TSH #### [facility] [address] [place] [address] Dr. Delmer Rea Bilirubin [Mass/Vol] 0.3 mg/dL Normal 0.2-1.0 [facility] Comment on above: Performed By: #### L IPA, DLDL, CON, LIPID, T7, CMP, TSH #### [facility] [address] [place] [address] Dr. Delmer Rea Calcium [Mass/Vol] 9.2 mg/dL Normal 8.5-10.1 [facility] Comment on above: Performed By: #### L IPA, DLDL, CON, LIPID, T7, CMP, TSH #### [facility] [address] [address] [address] Delmer Rea Chloride [Moles/Vol] 102 mmol/L Normal 98-107 [facility] Comment on above: Performed By: #### L IPA, DLDL, CON, LIPID, T7, CMP, TSH #### [facility] [address] [address] [address] Delmer Rea CO2 [Moles/Vol] 22.6 mmol/L Normal 21.0-32.0 [facility] Comment on above: Performed By: #### L IPA, DLDL, CON, LIPID, T7, CMP, TSH #### [facility] [address] [place] [address] Dr. Delmer Rea Creatinine [Mass/Vol] 1.89 mg/dL Critically high 0.55-1.02 [facility] Comment on above: Performed By: #### L IPA, DLDL, CON, LIPID, T7, CMP, TSH #### [facility] [address] [place] [address] Dr. Delmer Rea EGFR-AF [place]OVAK 34 mL/min/1.73m2 Critically low >=60 [facility] Comment on above: Performed By: #### L IPA, DLDL, CON, LIPID, T7, CMP, TSH #### [facility] [address] [place] [address] Dr. Delmer Rea EGFR-NON AF [place] 28 mL/min/1.73m2 Critically low >=60 [facility] Comment on above: Performed By: #### L IPA, DLDL, CON, LIPID, T7, CMP, TSH #### [facility] [address] [place] [address] Dr. Delmer Rea Globulin (S) [Mass/Vol] 3.9 g/dL Normal [facility] Comment on above: Performed By: #### L IPA, DLDL, CON, LIPID, T7, CMP, TSH #### [facility] [address] [place] [address] Dr. Delmer Rea Glucose [Mass/Vol] 257 mg/dL Critically high 74-106 [facility] Comment on above: Performed By: #### L IPA, DLDL, CON, LIPID, T7, CMP, TSH #### [facility] [address] [place] [address] Dr. Delmer Rea Potassium [Moles/Vol] 4.8 mmol/L Normal 3.5-5.1 [facility] Comment on above: Performed By: #### L IPA, DLDL, CON, LIPID, T7, CMP, TSH #### [facility] [address] [address] [address] Delmer Rea Protein [Mass/Vol] 7.3 g/dL Normal 6.4-8.2 [facility] Comment on above: Performed By: #### L IPA, DLDL, CON, LIPID, T7, CMP, TSH #### [facility] [address] [place] [address] Dr. Delmer Rea Sodium [Moles/Vol] 135 mmol/L Critically low 136-145 [facility] Comment on above: Performed By: #### L IPA, DLDL, CON, LIPID, T7, CMP, TSH #### [facility] [address] [place] [address] Dr. Delmer Rea Urea nitrogen [Mass/Vol] 39.0 mg/dL Critically high 7.0-18.0 [facility] Comment on above: Performed By: #### L IPA, DLDL, CON, LIPID, T7, CMP, TSH #### [facility] [address] [place] [address] Dr. Delmer Rea Urea nitrogen/Creatinine [Mass ratio] 20.6 mg/mg Normal [facility] Comment on above: Performed By: #### L IPA, DLDL, CON, LIPID, T7, CMP, TSH #### [facility] [address] [place] [address] Dr. Delmer Rea PROF 14(COMP METB)on 023 Albumin [Mass/Vol] 3.5 g/dL Normal 3.4-5.0 [facility] Comment on above: Performed By: #### U MICRO, ERUR #### [facility] [address] [place] [address] Dr. Delmer Rea Albumin/Globulin [Mass ratio] 0.8 {ratio} Normal [facility] Comment on above: Performed By: #### U MICRO, ERUR #### [facility] [address] [place] [address] Dr. Delmer Rea ALP [Catalytic activity/Vol] 113 U/L Normal 46-116 [facility] Comment on above: Performed By: #### U MICRO, ERUR #### [facility] [address] [address] [address] Delmer Rea ALT [Catalytic activity/Vol] 23 U/L Normal 14-59 [facility] Comment on above: Performed By: #### U MICRO, ERUR #### [facility] [address] [place] [address] Dr. Delmer Rea Anion gap [Moles/Vol] 15.5 mmol/L Normal [facility] Comment on above: Performed By: #### U MICRO, ERUR #### [facility] [address] [place] [address] Dr. Delmer Rea AST [Catalytic activity/Vol] 15 U/L Normal 15-37 [facility] Comment on above: Performed By: #### U MICRO, ERUR #### [facility] [address] [place] [address] Dr. Demler Rea Bilirubin [Mass/Vol] 0.3 mg/dL Normal 0.2-1.0 [facility] Comment on above: Performed By: #### U MICRO, ERUR #### [facility] [address] [place] [address] Dr. Delmer Rea Calcium [Mass/Vol] 9.5 mg/dL Normal 8.5-10.1 [facility] Comment on above: Performed By: #### U MICRO, ERUR #### [facility] [address] [place] [address] Dr. Delmer Rea Chloride [Moles/Vol] 104 mmol/L Normal 98-107 [facility] Comment on above: Performed By: #### U MICRO, ERUR #### [facility] [address] [place] [address] Dr. Delmer Rea CO2 [Moles/Vol] 25.1 mmol/L Normal 21.0-32.0 [facility] Comment on above: Performed By: #### U MICRO, ERUR #### [facility] [address] [place] [address] Dr. Delmer Rea Creatinine [Mass/Vol] 1.29 mg/dL Critically high 0.55-1.02 [facility] Comment on above: Performed By: #### U MICRO, ERUR #### [facility] [address] [address] [address] Delmer Rea EGFR-AF SLOVAK 53 mL/min/1.73m2 Critically low >=60 [facility] Comment on above: Performed By: #### U MICRO, ERUR #### [facility] [address] [address] [address] Delmer Rea EGFR-NON AF [place] 44 mL/min/1.73m2 Critically low >=60 [facility] Comment on above: Performed By: #### U MICRO, ERUR #### [facility] [address] [address] [address] Delmer Rea Globulin (S) [Mass/Vol] 4.2 g/dL Normal [facility] Comment on above: Performed By: #### U MICRO, ERUR #### [facility] [address] [address] [address] Delmer Rea Glucose [Mass/Vol] 135 mg/dL Critically high 74-106 [facility] Comment on above: Performed By: #### U MICRO, ERUR #### [facility] [address] [address] [address] Delmer Rea Potassium [Moles/Vol] 4.6 mmol/L Normal 3.5-5.1 [facility] Comment on above: Performed By: #### U MICRO, ERUR #### [facility] [address] [address] [address] Delmer Rea Protein [Mass/Vol] 7.7 g/dL Normal 6.4-8.2 [facility] Comment on above: Performed By: #### U MICRO, ERUR #### [facility] [address] [address] [address] Delmer Rea Sodium [Moles/Vol] 140 mmol/L Normal 136-145 [facility] Comment on above: Performed By: #### U MICRO, ERUR #### [facility] [address] [address] [address] Delmer Rea Urea nitrogen [Mass/Vol] 28.0 mg/dL Critically high 7.0-18.0 [facility] Comment on above: Performed By: #### U MICRO, ERUR #### [facility] [address] [place] [address] Dr. Delmer Rea Urea nitrogen/Creatinine [Mass ratio] 21.7 mg/mg Normal [facility] Comment on above: Performed By: #### U MICRO, ERUR #### [facility] [address] [place] [address] Dr. Delmer Rea H PYLORI ANTIBODY IGGon 11-07 H. PYLORI IGG ABS 4.50 Index Value Critically high 0.00-0. 79 [facility] Comment on above: Result Comment: Nega tive <0.80 Equivocal 0.80 - 0.89 Positive >0.89 Performed By: #### L IPA, DLDL, CON, LIPID, T7, CMP, TSH #### [facility] [address] [place] [address] Dr. Delmer Rea AMYLASEon 11-25-2022 Amylase [Catalytic activity/Vol] 42 U/L Normal 25-115 [facility] Comment on above: Performed By: #### L IPA, DLDL, CON, LIPID, T7, CMP, TSH #### [facility] [address] [place] [address] Dr. Delmer Rea CBC AUTO DIFFon 11-25-2022 BASO # 0.0 103/ul Normal 0.0-0.1 [facility] Comment on above: Performed By: #### U MICRO, ERUR #### [facility] [address] [place] [address] Dr. Delmer Rea Basophils/100 WBC (Bld) 0.6 % Normal 0.2-2.0 [facility] Comment on above: Performed By: #### U MICRO, ERUR #### [facility] [address] [place] [address] Dr. Delmer Rea EO # 0.2 103/ul Normal 0.0-0.7 [facility] Comment on above: Performed By: #### U MICRO, ERUR #### [facility] [address] [place] [address] Dr. Delmer Rea Eosinophils/100 WBC (Bld) 3.2 % Normal 0.9-7.0 [facility] Comment on above: Performed By: #### U MICRO, ERUR #### [facility] [address] [place] [address] Dr. Delmer Rea Erythrocyte distribution width (RBC) [Ratio] 13.5 % Normal 11.0-15.0 [facility] Comment on above: Performed By: #### U MICRO, ERUR #### [facility] [address] [place] [address] Dr. Delmer Rea Hematocrit (Bld) [Volume fraction] 28.6 % Critically low 36.0-48.0 [facility] Comment on above: Performed By: #### U MICRO, ERUR #### [facility] [address] [place] [address] Dr. Delmer Rea Hemoglobin (Bld) [Mass/Vol] 10.4 g/dL Critically low 12.0-16.0 [facility] Comment on above: Performed By: #### U MICRO, ERUR #### [facility] [address] [place] [address] Dr. Delmer Rea IG # 0.06 10e3/ul Critically high 0.00-0.[address] [facility] Comment on above: Performed By: #### U MICRO, ERUR #### [facility] [address] [place] [address] Dr. Delmer Rea IG % 0.9 % Critically high 0.0-0.[address] [facility] Comment on above: Performed By: #### U MICRO, ERUR #### [facility] [address] [place] [address] Dr. Delmer Rea LYMPH # 2.2 103/ul Normal 1.2-3.8 [facility] Comment on above: Performed By: #### U MICRO, ERUR #### [facility] [address] [place] [address] Dr. Delmer Rea Lymphocytes/100 WBC (Bld) 32.2 % Normal 20.5-60.0 [facility] Comment on above: Performed By: #### U MICRO, ERUR #### [facility] [address] [place] [address] Dr. Delmer Rea MANUAL DIFF REQ NO Normal [facility] Comment on above: Performed By: #### U MICRO, ERUR #### [facility] [address] [place] [address] Dr. Delmer Rea MCH (RBC) [Entitic mass] 27.6 pg Normal 26.7-34.0 [facility] Comment on above: Performed By: #### U MICRO, ERUR #### [facility] [address] [place] [address] Dr. Delmer Rea MCHC (RBC) [Mass/Vol] 36.4 g/dL Critically high 29.9-35.2 [facility] Comment on above: Performed By: #### U MICRO, ERUR #### [facility] [address] [place] [address] Dr. Delmer Rea MCV (RBC) [Entitic vol] 75.9 fL Critically low 81.0-99.0 [facility] Comment on above: Performed By: #### U MICRO, ERUR #### [facility] [address] [place] [address] Dr. Delmer Rea MONO # 0.7 103/ul Normal 0.3-0.8 [facility] Comment on above: Performed By: #### U MICRO, ERUR #### [facility] [address] [place] [address] Dr. Delmer Rea Monocytes/100 WBC (Bld) 9.4 % Normal 1.7-12.0 [facility] Comment on above: Performed By: #### U MICRO, ERUR #### [facility] [address] [place] [address] Dr. Delmer Rea NEUT # 3.7 103/ul Normal 1.4-6.5 [facility] Comment on above: Performed By: #### U MICRO, ERUR #### [facility] [address] [place] [address] Dr. Delmer Rea Neutrophils/100 WBC (Bld) 53.7 % Normal 43.0-75.0 [facility] Comment on above: Performed By: #### U MICRO, ERUR #### [facility] [address] [address] [address] Delmer Rea Platelet mean volume (Bld) [Entitic vol] 9.4 fL Critically low 9.5-13.5 [facility] Comment on above: Performed By: #### U MICRO, ERUR #### [facility] [address] [address] [address] Delmer Rea PLT 313 103/ul Normal 150-450 [facility] Comment on above: Performed By: #### U MICRO, ERUR #### [facility] [address] [address] [address] Delmer Rea RBC 3.77 106/ul Critically low 4.20-5.40 [facility] Comment on above: Performed By: #### U MICRO, ERUR #### [facility] [address] [address] [address] Delmer Rea WBC 6.9 103/ul Normal 4.0-11.0 [facility] Comment on above: Performed By: #### U MICRO, ERUR #### [facility] [address] [address] [address] Delmer Rea DIRECT LDLon 11-25-2022 Cholesterol in LDL [Mass/Vol] 102 mg/dL Normal [facility] Comment on above: Performed By: #### L IPA, DLDL, CON, LIPID, T7, CMP, TSH #### [facility] [address] [address] [address] Delmer Rea DLDL NORMAL SEE BELOW Normal [facility] Comment on above: Result Comment: <100 mg/dl OPTIMAL 100 - 129 mg/dl NEAR OR ABOVE OPTIMAL 130 - 159 mg/dl BORDERLINE HIGH 160 - 189 mg/dl HIGH >190 mg/dl VERY HIGH Performed By: #### L IPA, DLDL, CON, LIPID, T7, CMP, TSH #### [facility] [address] [address] [address] Delmer Rea FREE THYROXINE INDEX T7on FTI 4.31 Normal 1.30-4.50 [facility] Comment on above: Performed By: #### L IPA, DLDL, CON, LIPID, T7, CMP, TSH #### [facility] [address] [address] [address] Delmer Rea T3U 35.0 % Normal 30.0-39.0 [facility] Comment on above: Performed By: #### L IPA, DLDL, CON, LIPID, T7, CMP, TSH #### [facility] [address] [address] [address] Delmer Rea T4 [Mass/Vol] 12.30 ug/dL Normal 4.80-13.[address] [facility] Comment on above: Performed By: #### L IPA, DLDL, CON, LIPID, T7, CMP, TSH #### [facility] [address] [address] [address] Delmer Rea GLYCOHEMOGLOBIN A1Con 2022 ADA RECOMMENDATION SEE BELOW Normal [facility] Comment on above: Result Comment: ADA RECOMMENDED LIMIT 4.0 - 6.0 ADA THERAPEUTIC TARGET < 7.0 ACTION SUGGESTED > 7.0 Performed By: #### U MICRO, ERUR #### [facility] [address] [address] [address] Delmer Rea Glucose [Mass/Vol] 180 mg/dL Normal [facility] Comment on above: Performed By: #### U MICRO, ERUR #### [facility] [address] [address] [address] Delmer Rea HbA1c (Bld) [Mass fraction] 7.9 % Critically high 4.5-6.2 [facility] Comment on above: Performed By: #### U MICRO, ERUR #### [facility] [address] [address] [address] Delmer Rea IRONon 11-25-2022 Iron [Mass/Vol] 35.0 ug/dL Critically low 50.0-170.0 [facility] Comment on above: Performed By: #### L IPA, DLDL, CON, LIPID, T7, CMP, TSH #### [facility] [address] [address] [address] Delmer Rea LIPASEon 11-25-2022 Lipase [Catalytic activity/Vol] 155.0 U/L Normal 73.0-393.0 [facility] Comment on above: Performed By: #### L IPA, DLDL, CON, LIPID, T7, CMP, TSH #### [facility] [address] [address] [address] Delmer Rea LIPID PROFILEon 11-25-2022 CHOL-HDL RATIO NORM SEE BELOW Normal [facility] Comment on above: Result Comment: 3.3 - 4.4 LOW RISK 4.4 - 7.1 AVERAGE RISK 7.1 - 11.0 MODERATE RISK >11.0 HIGH RISK Performed By: #### L IPA, DLDL, CON, LIPID, T7, CMP, TSH #### [facility] [address] [address] [address] Delmer Rea Cholesterol [Mass/Vol] 238 mg/dL Critically high <=200 [facility] Comment on above: Performed By: #### L IPA, DLDL, CON, LIPID, T7, CMP, TSH #### [facility] [address] [address] [address] Delmer Rea Cholesterol in HDL [Mass/Vol] 39 mg/dL Critically low 40-60 [facility] Comment on above: Performed By: #### L IPA, DLDL, CON, LIPID, T7, CMP, TSH #### [facility] [address] [address] [address] Delmer Rea Cholesterol.total/Ch olesterol in HDL [Mass ratio] 6.1 {ratio} Normal [facility] Comment on above: Performed By: #### L IPA, DLDL, CON, LIPID, T7, CMP, TSH #### [facility] [address] [address] [address] Delmer Rea HDL NORMAL > or = 60 mg/dl - LO W CARDIOVASCULAR RISK <40 mg/dl - HIGH CARDIOVASCULAR RISK Normal [facility] Comment on above: Performed By: #### L IPA, DLDL, CON, LIPID, T7, CMP, TSH #### [facility] [address] [address] [address] Delmer Rea LDL CALC NORMAL SEE BELOW Normal [facility] Comment on above: Result Comment: <100 mg/dl OPTIMAL 100 - 129 mg/dl NEAR OR ABOVE OPTIMAL 130 - 159 mg/dl BORDERLINE HIGH 160 - 189 mg/dl HIGH >190 mg/dl VERY HIGH Performed By: #### L IPA, DLDL, CON, LIPID, T7, CMP, TSH #### [facility] [address] [address] [address] Delmer Rea Triglyceride [Mass/Vol] 579 mg/dL Critically high <=150 [facility] Comment on above: Performed By: #### L IPA, DLDL, CON, LIPID, T7, CMP, TSH #### [facility] [address] [address] [address] Delmer Rea VLDL CALC 115.8 mg/dL Normal [facility] Comment on above: Performed By: #### L IPA, DLDL, CON, LIPID, T7, CMP, TSH #### [facility] [address] [place] [address] Dr. Delmer Rea PROF 14(COMP METB)on 023 Albumin [Mass/Vol] 3.5 g/dL Normal 3.4-5.0 [facility] Comment on above: Performed By: #### L IPA, DLDL, CON, LIPID, T7, CMP, TSH #### [facility] [address] [place] [address] Dr. Delmer Rea Albumin/Globulin [Mass ratio] 0.8 {ratio} Normal [facility] Comment on above: Performed By: #### L IPA, DLDL, CON, LIPID, T7, CMP, TSH #### [facility] [address] [address] [address] Delmer Rea ALP [Catalytic activity/Vol] 110 U/L Normal 46-116 [facility] Comment on above: Performed By: #### L IPA, DLDL, CON, LIPID, T7, CMP, TSH #### [facility] [address] [address] [address] Delmer Rea ALT [Catalytic activity/Vol] 19 U/L Normal 14-59 [facility] Comment on above: Performed By: #### L IPA, DLDL, CON, LIPID, T7, CMP, TSH #### [facility] [address] [address] [address] Delmer Rea Anion gap [Moles/Vol] 17.0 mmol/L Normal [facility] Comment on above: Performed By: #### L IPA, DLDL, CON, LIPID, T7, CMP, TSH #### [facility] [address] [address] [address] Delmer Rea AST [Catalytic activity/Vol] 13 U/L Critically low 15-37 [facility] Comment on above: Performed By: #### L IPA, DLDL, CON, LIPID, T7, CMP, TSH #### [facility] [address] [place] [address] Dr. Delmer Rea Bilirubin [Mass/Vol] 0.3 mg/dL Normal 0.2-1.0 [facility] Comment on above: Performed By: #### L IPA, DLDL, CON, LIPID, T7, CMP, TSH #### [facility] [address] [place] [address] Dr. Delmer Rea Calcium [Mass/Vol] 9.6 mg/dL Normal 8.5-10.1 [facility] Comment on above: Performed By: #### L IPA, DLDL, CON, LIPID, T7, CMP, TSH #### [facility] [address] [address] [address] Delmer Rea Chloride [Moles/Vol] 104 mmol/L Normal 98-107 [facility] Comment on above: Performed By: #### L IPA, DLDL, CON, LIPID, T7, CMP, TSH #### [facility] [address] [place] [address] Dr. Delmer Rea CO2 [Moles/Vol] 22.7 mmol/L Normal 21.0-32.0 [facility] Comment on above: Performed By: #### L IPA, DLDL, CON, LIPID, T7, CMP, TSH #### [facility] [address] [place] [address] Dr. Delmer Rea Creatinine [Mass/Vol] 2.15 mg/dL Critically high 0.55-1.02 [facility] Comment on above: Performed By: #### L IPA, DLDL, CON, LIPID, T7, CMP, TSH #### [facility] [address] [place] [address] Dr. Delmer Rea EGFR-AF SLOVAK 29 mL/min/1.73m2 Critically low >=60 [facility] Comment on above: Performed By: #### L IPA, DLDL, CON, LIPID, T7, CMP, TSH #### [facility] [address] [place] [address] Dr. Delmer Rea EGFR-NON AF [place] 24 mL/min/1.73m2 Critically low >=60 [facility] Comment on above: Performed By: #### L IPA, DLDL, CON, LIPID, T7, CMP, TSH #### [facility] [address] [place] [address] Dr. Delmer Rea Globulin (S) [Mass/Vol] 4.3 g/dL Normal [facility] Comment on above: Performed By: #### L IPA, DLDL, CON, LIPID, T7, CMP, TSH #### [facility] [address] [place] [address] Dr. Delmer Rea Glucose [Mass/Vol] 189 mg/dL Critically high 74-106 [facility] Comment on above: Performed By: #### L IPA, DLDL, CON, LIPID, T7, CMP, TSH #### [facility] [address] [place] [address] Dr. Delmer Rea Potassium [Moles/Vol] 4.7 mmol/L Normal 3.5-5.1 [facility] Comment on above: Performed By: #### L IPA, DLDL, CON, LIPID, T7, CMP, TSH #### [facility] [address] [place] [address] Dr. Delmer Rea Protein [Mass/Vol] 7.8 g/dL Normal 6.4-8.2 [facility] Comment on above: Performed By: #### L IPA, DLDL, CON, LIPID, T7, CMP, TSH #### [facility] [address] [place] [address] Dr. Delmer Rea Sodium [Moles/Vol] 139 mmol/L Normal 136-145 [facility] Comment on above: Performed By: #### L IPA, DLDL, CON, LIPID, T7, CMP, TSH #### [facility] [address] [address] [address] Delmer Rea Urea nitrogen [Mass/Vol] 48.0 mg/dL Critically high 7.0-18.0 [facility] Comment on above: Performed By: #### L IPA, DLDL, CON, LIPID, T7, CMP, TSH #### [facility] [address] [address] [address] Delmer Rea Urea nitrogen/Creatinine [Mass ratio] 22.3 mg/mg Normal [facility] Comment on above: Performed By: #### L IPA, DLDL, CON, LIPID, T7, CMP, TSH #### [facility] [address] [place] [address] Dr. Delmer Rea TSHon 11-25-2022 TSH 0.063 uIU/mL Critically low 0.358-3.740 [facility] Comment on above: Performed By: #### L IPA, DLDL, CON, LIPID, T7, CMP, TSH #### [facility] [address] [address] [address] Delmer Rea CULTURE URINEon 09-12-2022 CULTURE URINE Culture Observations : LIGHT GROWTH OF MIXED GENITAL JOSE. NO POTENTIAL PATHOGENS SEEN. Normal [facility] Comment on above: Performed By: #### L IPA, DLDL, CON, LIPID, T7, CMP, TSH #### [facility] [address] [place] [address] Dr. Delmer Rea URINE MICROSCOPIC ONLYon BACTERIA MODERATE Abnormal NONE SEEN [facility] Comment on above: Performed By: #### L IPA, DLDL, CON, LIPID, T7, CMP, TSH #### [facility] [address] [place] [address] Dr. Delmer Rea Bacteria identified Cx Nom (U) CX ALREADY ORDERED Normal [facility] Comment on above: Performed By: #### L IPA, DLDL, CON, LIPID, T7, CMP, TSH #### [facility] [address] [address] [address] Delmer Rea CAST NONE SEEN Normal NONE SEEN [facility] Comment on above: Performed By: #### L IPA, DLDL, CON, LIPID, T7, CMP, TSH #### [facility] [address] [address] [address] Delmer Rea Crystals LM Nom (Urine sed) NONE SEEN Normal NONE SEEN [facility] Comment on above: Performed By: #### L IPA, DLDL, CON, LIPID, T7, CMP, TSH #### [facility] [address] [address] [address] Delmer eRa Epithelial cells LM Ql (Urine sed) FEW Abnormal NONE SEEN /RARE [facility] Comment on above: Performed By: #### L IPA, DLDL, CON, LIPID, T7, CMP, TSH #### [facility] [address] [address] [address] Delmer Rea MUCOUS NONE SEEN Normal NONE SEEN [facility] Comment on above: Performed By: #### L IPA, DLDL, CON, LIPID, T7, CMP, TSH #### [facility] [address] [address] [address] Delmer Rea RBC 5-10 Abnormal 0-2 [facility] Comment on above: Performed By: #### L IPA, DLDL, CON, LIPID, T7, CMP, TSH #### [facility] [address] [address] [address] Delmer Rea WBC (U) [#/Vol] /uL Abnormal NONE SEEN [facility] Comment on above: Performed By: #### L IPA, DLDL, CON, LIPID, T7, CMP, TSH #### [facility] [address] [address] [address] Delmer Rea YEAST PRESENT Abnormal NONE SEEN [facility] Comment on above: Performed By: #### L IPA, DLDL, CON, LIPID, T7, CMP, TSH #### [facility] [address] [address] [address] Delmer Rea NM KIDNEY W FLOW [...] Akil Cummings MD 08/05/22 Final result Normal [facility] APTTon 07-26-2022 aPTT Coag (Bld) [Time] 23.4 s Normal 20.5-30.5 [facility] Comment on above: Result Comment: IV Heparin Therapy Range: 48.6-77.8 Performed By: #### A NAX, IFX, PHEP, FKLLC, PE #### [employer] [address] [place] [address] Food Safety Auditor: Bala Skelton MD aPTT Coag (Bld) [Time] 23.4 s [facility] Comment on above: IV Heparin Therapy Range: 48.6-77.8 CBC with Auto Differentialon 07-26-2022 Absolute Eos # 0.29 [facility] Absolute Immature Granulocyte 0.09 [facility] Absolute Lymph # 2.26 [facility] Absolute [place] # 0.65 [facility] Basophils (Bld) [#/Vol] 0.04 10*3/uL [facility] Basophils/100 WBC (Bld) 1 % 0 - 2 % [facility] Eosinophils/100 WBC (Bld) 4 % 1 - 4 % [facility] Hematocrit (Bld) [Volume fraction] 29.5 % Low 36.3 - 47.1 % [facility] Hemoglobin (Bld) [Mass/Vol] 10.1 g/dL Low 11.9 - 15.1 g/dL [facility] Immature granulocytes/100 WBC (Bld) 1 % High 0 [facility] Interpretation and review of laboratory results Abnormal [facility] Lymphocytes/100 WBC (Bld) 27 % 24 - 43 % [facility] MCH (RBC) [Entitic mass] 29.3 pg 25.2 - 33.5 pg [facility] MCHC (RBC) [Mass/Vol] 34.2 g/dL 28.4 - 34.8 g/dL [facility] MCV (RBC) [Entitic vol] 85.5 fL 82.6 - 102.9 fL [facility] Monocytes/100 WBC (Bld) 8 % 3 - 12 % [facility] NRBC Automated 0.0 0.0 per 100 WBC [facility] Platelet distribution width (Bld) [Ratio] 13.4 % 11.8 - 14.4 % [facility] Platelet mean volume (Bld) [Entitic vol] 9.5 fL 8.1 - 13.5 fL [facility] Platelets (Bld) [#/Vol] 311 10*3/uL [facility] RBC (Bld) [#/Vol] 3.45 10*6/uL Low 3.95 - 5.1 1 m/uL [facility] Segmented neutrophils/100 WBC (Bld) 59 % 36 - 65 % [facility] Segs Absolute 5.00 [facility] WBC (Bld) [#/Vol] 8.3 10*3/uL [facility] CBC with Diffon 07-26-2022 Abs. Basophil 0.04 k/uL Normal 0.00-0.20 [facility] Comment on above: Performed By: #### A NAX, IFX, PHEP, FKLLC, PE #### [address] [address] Food Safety Auditor: Bala Skelton MD Abs.Imm.Granulocyte 0.09 k/uL Normal 0.00-0.30 [facility] Comment on above: Performed By: #### A NAX, IFX, PHEP, FKLLC, PE #### [facility] [employer] [address] [place] [address] Food Safety Auditor: Bala Skelton MD Abs.Neutrophil (Seg) 5.00 k/uL Normal 1.50-8.10 [facility] Comment on above: Performed By: #### A NAX, IFX, PHEP, FKLLC, PE #### [facility] [employer] [address] [place] [id number] Food Safety Auditor: Bala Skelton MD Basophils/100 WBC (Bld) 1 % Normal 0-2 [facility] Comment on above: Performed By: #### A NAX, IFX, PHEP, FKLLC, PE #### [facility] [employer] [address] [place] [id number] Food Safety Auditor: Bala Skelton MD Eosinophils (Bld) [#/Vol] 0.29 10*3/uL Normal 0.00-0.44 [facility] Comment on above: Performed By: #### A NAX, IFX, PHEP, FKLLC, PE #### [address] [address] Food Safety Auditor: Bala Skelton MD Eosinophils/100 WBC (Bld) 4 % Normal 1-4 [facility] Comment on above: Performed By: #### A NAX, IFX, PHEP, FKLLC, PE #### [address] [address] Food Safety Auditor: Bala Skelton MD Erythrocyte distribution width (RBC) [Ratio] 13.4 % Normal 11.8-14.4 [facility] Comment on above: Performed By: #### A NAX, IFX, PHEP, FKLLC, PE #### [address] [address] Food Safety Auditor: Bala Skelton MD Hematocrit (Bld) [Volume fraction] 29.5 % Low 36.3-47.1 [facility] Comment on above: Performed By: #### A NAX, IFX, PHEP, FKLLC, PE #### [address] [address] Food Safety Auditor: Bala Skelton MD Hemoglobin (Bld) [Mass/Vol] 10.1 g/dL Low 11.9-15.1 [facility] Comment on above: Performed By: #### A NAX, IFX, PHEP, FKLLC, PE #### [address] [address] Food Safety Auditor: Bala Skelton MD Immature granulocytes/100 WBC (Bld) 1 % High 0 [facility] Comment on above: Performed By: #### A NAX, IFX, PHEP, FKLLC, PE #### [address] [address] Food Safety Auditor: Bala Skelton MD Lymphocytes (Bld) [#/Vol] 2.26 10*3/uL Normal 1.10-3.70 [facility] Comment on above: Performed By: #### A NAX, IFX, PHEP, FKLLC, PE #### [address] [address] Food Safety Auditor: Bala Skelton MD Lymphocytes/100 WBC (Bld) 27 % Normal 24-43 [facility] Comment on above: Performed By: #### A NAX, IFX, PHEP, FKLLC, PE #### [place] [address] Food Safety Auditor: Bala Skelton MD MCH (RBC) [Entitic mass] 29.3 pg Normal 25.2-33.5 [facility] Comment on above: Performed By: #### A NAX, IFX, PHEP, FKLLC, PE #### [place] [address] Food Safety Auditor: Bala Skelton MD MCHC (RBC) [Mass/Vol] 34.2 g/dL Normal 28.4-34.8 [facility] Comment on above: Performed By: #### A NAX, IFX, PHEP, FKLLC, PE #### [address] [id number] Food Safety Auditor: Bala Skelton MD MCV (RBC) [Entitic vol] 85.5 fL Normal 82.6-102.9 [facility] Comment on above: Performed By: #### A NAX, IFX, PHEP, FKLLC, PE #### [place] [address] Food Safety Auditor: Bala Skelton MD Monocytes (Bld) [#/Vol] 0.65 10*3/uL Normal 0.10-1.20 [facility] Comment on above: Performed By: #### A NAX, IFX, PHEP, FKLLC, PE #### [address] [address] Food Safety Auditor: Bala Skelton MD Monocytes/100 WBC (Bld) 8 % Normal 3-12 [facility] Comment on above: Performed By: #### A NAX, IFX, PHEP, FKLLC, PE #### [address] [address] Food Safety Auditor: Bala Skelton MD Neutrophil (Seg) 59 % Normal 36-65 [facility] Comment on above: Performed By: #### A NAX, IFX, PHEP, FKLLC, PE #### [address] [address] Food Safety Auditor: Bala Skelton MD NRBC Automated 0.0 per 100 WBC Normal 0.0 [facility] Comment on above: Performed By: #### A NAX, IFX, PHEP, FKLLC, PE #### [address] [address] Food Safety Auditor: Bala Skelton MD Platelet mean volume (Bld) [Entitic vol] 9.5 fL Normal 8.1-13.5 [facility] Comment on above: Performed By: #### A NAX, IFX, PHEP, FKLLC, PE #### [address] [address] Food Safety Auditor: Bala Skelton MD Platelets (Bld) [#/Vol] 311 10*3/uL Normal 138-453 [facility] Comment on above: Performed By: #### A NAX, IFX, PHEP, FKLLC, PE #### [address] [address] Food Safety Auditor: Bala Skelton MD RBC (Bld) [#/Vol] 3.45 10*6/uL Low 3.95-5.11 [facility] Comment on above: Performed By: #### A NAX, IFX, PHEP, FKLLC, PE #### [employer] [address] [place], [place] [phone] Food Safety Auditor: Bala Skelton MD WBC (Bld) [#/Vol] 8.3 10*3/uL Normal 3.5-11.3 [facility] Comment on above: Performed By: #### A NAX, IFX, PHEP, FKLLC, PE #### [facility] [address] [place], [place] [phone] Food Safety Auditor: Bala Skelton MD IR GUIDED NEPHROURETERAL CAT H REMOVE/REPLACEon 07-26-2022 1. Successful left nephroureteral stent exchange. [facility] Bishnu Wright MD - 07/26/2022 PROCEDURE: [...] detailed explanation of the procedure including risks. [place] protocol was observed. Sterile gowns, masks, hats and gloves utilized for maximal sterile barrier. The patient was placed in the prone position on the fluoroscopy table, and the existing left nephroureteral stent and flank were prepped and draped in sterile manner. The stent tubing was noted to be broken with the lumen exposed near the level of the skin. A professional sports scout image demonstrated the distal loop approximating [...] wire. Under fluoroscopic guidance, a new 8 Nepalese x 22 cm nephroureteral stent was advanced over the wire; the distal loop formed in the bladder, but the proximal loop did not form in the renal pelvis. Therefore, this catheter was removed over wire, and a new 8 Nepalese x 24 cm nephroureteral stent was advanced [...] IMPRESSION: 1. Successful left nephroureteral stent exchange. [employer] Phone: Radiology Study observation (narrative) [employer] Phone: IR GUIDED NEPHROURETERAL CAT H REMOVE/REPLACEOrdered By: Bishnu Alan on 07-26-2022 [facility]: No Panel Informationon 07-26 [facility] [employer] POC Glucose Fingerstickon Glucose [Mass/Vol] 185 mg/dL High 65 - 105 mg/dL [facility] Interpretation and review of laboratory results Abnormal [facility] [employer] hetras PTon 07-26-2022 INR Coag (PPP) [Relative time] 0.9 {INR} Normal [facility] Comment on above: Result Comment: Therapeutic Range: Moderate Anticoagulant Intensity: INR = 2.0-3.0 High Anticoagulant Intensity: INR = 2.5-3.5 Performed By: #### A NAX, IFX, PHEP, FKLLC, PE #### [employer] [address] [place] [address] Food Safety Auditor: Bala Skelton MD PT Coag (PPP) [Time] 9.4 s Normal 9.1-12.3 [facility] Comment on above: Performed By: #### A NAX, IFX, PHEP, FKLLC, PE #### [employer] [address] [place] [address] Food Safety Auditor: Bala Skelton MD Protime-INRon 07-26-2022 INR Coag (Bld) [Relative time] 0.9 {INR} [facility] Comment on above: Therapeutic Range: Moderate Anticoagulant Intensity: INR = 2.0-3.0 High Anticoagulant Intensity: INR = 2.5-3.5 PT Coag (PPP) [Time] 9.4 s [facility] Cult, Bloodon 07-25-2022 Cult, Blood Specimen Description .BLOOD Special Requests LEFT FOREARM 5ML Culture NO GROWTH 5 DAYS Report Status FINAL 07/25/2022 [facility] Comment on above: Performed By: #### B C #### [address] [phone] Food Safety Auditor: Bala Skelton MD Cult,Bloodon 07-25-2022 Cult,Blood Specimen Description .BLOOD Special Requests LT WRIST 2.5ML Culture NO GROWTH 5 DAYS Report Status FINAL 07/25/2022 [facility] Comment on above: Performed By: #### B C #### [address] [address] Food Safety Auditor: Bala Skelton MD Cult,Blood Specimen Description .BLOOD Special Requests RT WRIST 2.5ML Culture NO GROWTH 5 DAYS Report Status FINAL 07/25/2022 [facility] Comment on above: Performed By: #### A NAX, IFX, PHEP, FKLLC, PE #### [address] [address] Food Safety Auditor: Bala Skelton MD Cult,Blood Specimen Description .BLOOD Special Requests 2ML Culture NO GROWTH 5 DAYS Report Status FINAL 07/25/2022 [facility] Comment on above: Performed By: #### A NAX, IFX, PHEP, FKLLC, PE #### [address] [address] Food Safety Auditor: Bala Skelton MD XR ABDOMEN (KUB) (SINGLE [...] Bry Foreman MD 07/25/22 Final result Normal [facility] Left PCNU in place. There is questionable discontinuity of the retroperitoneal or body wall portion of the catheter. This may be artifactual related to bowel gas. Recommend repeat exam or CT. [facility] RIS CONSOLIDATED EXAMINATION: ONE SUPINE XRAY [...] of the catheter. No gross bony abnormality. [facility] RIS CONSOLIDATED Bry Foreman MD - 07/25/2022 [...] bowel gas. Recommend repeat exam or CT. [facility] [employer] Phone: Radiology Study observation (narrative) [facility] [employer] Phone: XR ABDOMEN (KUB) (SINGLE AP VIEW)Ordered By: Bry Foreman on 07-25-2022 [facility] [employer] Phone: Cult,Bloodon 07-23-2022 Cult,Blood Specimen Description .BLOOD Special Requests R FOREARM 10 ML Culture NO GROWTH 5 DAYS Report Status FINAL 07/23/2022 Normal [facility] Comment on above: Performed By: #### A NAX, IFX, PHEP, FKLLC, PE #### [employer] [address] [place] [address] [phone] Food Safety Auditor: Bala Skelton MD Cult,Blood Specimen Description .BLOOD Special Requests L WRIST 10 ML Culture NO GROWTH 5 DAYS Report Status FINAL 07/23/2022 Normal [facility] Comment on above: Performed By: #### L ACTIC #### [employer] [address] [place] [address] [phone] Food Safety Auditor: Bala Skelton MD ALEXANDRE Screen w/reflexon 2021 ALEXANDRE Screen Negative Normal NEG [facility] Comment on above: Performed By: #### A NAX, IFX, PHEP, FKLLC, PE #### [employer] [address] [place] [address] [phone] Food Safety Auditor: Bala Skelton MD Anti-dsDNA 2.1 IU/mL Normal <10.0 [facility] Comment on above: Result Comment: Reference Range: <10.0 Negative 10.0-15.0 Equivocal >15.0 Positive Performed By: #### A NAX, IFX, PHEP, FKLLC, PE #### [employer] [address] [place] [address] [phone] Food Safety Auditor: Bala Skelton MD MICKIE Screen 0.1 U/mL Normal <0.7 [facility] Comment on above: Result Comment: Reference Range: <0.7 Negative 0.7-1.0 Equivocal >1.0 Positive MICKIE Screen includes U1RNP,RNP70,Sm,Ro(SS-A),La(SS-B),CENP,Scl-70,Gina-1 Performed By: #### A NAX, IFX, PHEP, FKLLC, PE #### [employer] [address] [place] [address] Food Safety Auditor: Bala Skelton MD ALEXANDRE Screen with Reflexon Anti ds DNA 2.1 [facility] Comment on above: Reference Range: <10.0 Negative 10.0-15.0 Equivocal >15.0 Positive MICKIE Antibodies Screen 0.1 U/mL [facility] - 0.7 U/mL [facility] Comment on above: Reference Range: <0.7 Negative 0.7-1.0 Equivocal >1.0 Positive MICKIE Screen includes U1RNP,RNP70,Sm,Ro(SS-A),La(SS-B),CENP,Scl-70,Gina-1 Nuclear Ab IF (S) [Titer] Negative NEGATIVE [facility] Basic Metab w/rfx MGon 07-22 (cont.) Normal [facility] Comment on above: Result Comment: Aver age GFR for 50-59 years old: 93 mL/min/1.73sq m Chronic Kidney Disease: <60 mL/min/1.73sq m Kidney failure: <15 mL/min/1.73sq m eGFR calculated using average adult body mass. Additional eGFR calculator available at: http://www.[employer].com/multiple_crcl_2012.htm Performed By: #### A NAX, IFX, PHEP, FKLLC, PE #### [employer] [facility] [place] [address] Food Safety Auditor: Bala Skelton MD Anion gap [Moles/Vol] 12 mmol/L Normal 9-17 [facility] Comment on above: Performed By: #### A NAX, IFX, PHEP, FKLLC, PE #### [address] [address] Food Safety Auditor: Bala Skelton MD Calcium [Mass/Vol] 8.5 mg/dL Low 8.6-10.4 [facility] Comment on above: Performed By: #### A NAX, IFX, PHEP, FKLLC, PE #### [address] [address] Food Safety Auditor: Bala Skelton MD Chloride [Moles/Vol] 101 mmol/L Normal 98-107 [facility] Comment on above: Performed By: #### A NAX, IFX, PHEP, FKLLC, PE #### [address] [address] Food Safety Auditor: Bala Skelton MD CO2 [Moles/Vol] 25 mmol/L Normal 20-31 [facility] Comment on above: Performed By: #### A NAX, IFX, PHEP, FKLLC, PE #### [address] [address] Food Safety Auditor: Bala Skelton MD Creatinine [Mass/Vol] 1.06 mg/dL High 0.50-0.90 [facility] Comment on above: Performed By: #### A NAX, IFX, PHEP, FKLLC, PE #### [address] [address] Food Safety Auditor: Bala Skelton MD GFR, Amer >60 Normal >60 [facility] Comment on above: Performed By: #### A NAX, IFX, PHEP, FKLLC, PE #### [address] [address] Food Safety Auditor: Bala Skelton MD GFR,non Amer 55 mL/min Low >60 [facility] Comment on above: Performed By: #### A NAX, IFX, PHEP, FKLLC, PE #### [facility] [employer] [address] [place] [address] Food Safety Auditor: Bala Skelton MD Glucose [Mass/Vol] 172 mg/dL High 70-99 [facility] Comment on above: Performed By: #### A NAX, IFX, PHEP, FKLLC, PE #### [facility] [employer] [address] [place] [address] Food Safety Auditor: Bala Skelton MD Potassium [Moles/Vol] 4.1 mmol/L Normal 3.7-5.3 [facility] Comment on above: Performed By: #### A NAX, IFX, PHEP, FKLLC, PE #### [facility] [address] [place] [address] Food Safety Auditor: Bala Skelton MD Sodium [Moles/Vol] 138 mmol/L Normal 135-144 [facility] Comment on above: Performed By: #### A NAX, IFX, PHEP, FKLLC, PE #### [facility] [employer] [address] [place] [address] Food Safety Auditor: Bala Skelton MD Urea nitrogen [Mass/Vol] 24 mg/dL High 6-20 [facility] Comment on above: Performed By: #### A NAX, IFX, PHEP, FKLLC, PE #### [facility] [address] [place] [address] Food Safety Auditor: Bala Skelton MD Basic Metabolic Panel w/ Ref romulo to MGon 07-22-2022 Anion gap [Moles/Vol] 12 mmol/L 9 - 17 mmol/L [facility] Calcium [Mass/Vol] 8.5 mg/dL Low 8.6 - 10. 4 mg/dL [facility] Chloride [Moles/Vol] 101 mmol/L 98 - 10 7 mmol/L [facility] CO2 [Moles/Vol] 25 mmol/L 20 - 31 mmol/L [facility] Creatinine [Mass/Vol] 1.06 mg/dL High 0.5 - 0.9 mg/dL [facility] GFR >60 60 - PI NF mL/min [facility] GFR Non- 55 mL/min Low 60 - PINF mL/min [facility] GFR/1.73 sq M.predicted MDRD (S/P/Bld) [Vol rate/Area] [facility] Comment on above: Average GFR for 50-5 9 years old: 93 mL/min/1.73sq m Chronic Kidney Disease: <60 mL/min/1.73sq m Kidney failure: <15 mL/min/1.73sq m eGFR calculated using average adult body mass. Additional eGFR calculator available at: http://www.[employer]multiple_crcl_2012.htm Glucose [Mass/Vol] 172 mg/dL High 70 - 99 mg/dL [facility] Interpretation and review of laboratory results Abnormal [facility] Potassium [Moles/Vol] 4.1 mmol/L 3.7 - 5.3 mmol/L [facility] Sodium [Moles/Vol] 138 mmol/L 135 - 144 mmol/L [facility] Urea nitrogen (BldV) [Mass/Vol] 24 mg/dL High 6 - 20 mg/dL [facility] Electrophoresis Protein, Ser umon 07-22-2022 Albumin % 57 % 45 - 65 % [facility] Albumin [Mass/Vol] 3.6 g/dL 3.2 - 5.2 g/dL [facility] Alpha 1 % 4 % 3 - 6 % [facility] Alpha 2 % 15 % High 6 - 13 % [facility] Qgguh-8-Odyrktqj 0.2 g/dL 0.1 - 0.4 g/dL [facility] Dsriu-1-Ijrpmoid 0.9 g/dL 0.5 - 0.9 g/dL [facility] Beta Globulin 0.9 g/dL 0.5 - 1.1 g/dL [facility] Beta Percent 14 % 11 - 19 % [facility] Free PSA/Total PSA [Mass fraction] 6.3 g/dL Low 6.4 - 8.3 g/dL [facility] Gamma Globulin 0.6 g/dL 0.5 - 1.5 g/dL [facility] Gamma Globulin % 10 % 9 - 20 % [facility] Interpretation and review of laboratory results Abnormal [facility] Pathologist Cyto stain Nom (Cvx/Vag) [ID] Reviewed by pathologist: Mary Stovall M.D. [facility] Protein Electrophoresis, Serum NORMAL ELECTROPHORETIC PATTERN [facility] Comment on above: IMMUNOFIXATION IS NE GATIVE FOR MONOCLONAL IMMUNOGLOBULIN. Total Prot. Sum 6.2 g/dL Low 6.3 - 8.2 g/dL [facility] Total Prot. Sum,% 100 % 98 - 102 % [facility] Hepatitis Acute [facility] 07-22 Hep A Ab,IgM Non-Reactive Normal [facility] Comment on above: Performed By: #### A NAX, IFX, PHEP, FKLLC, PE #### [employer] [address] [place] [address] [phone] Food Safety Auditor: Bala Skelton MD Hep B Core Ab,IgM Non-Reactive Normal [facility] Comment on above: Performed By: #### A NAX, IFX, PHEP, FKLLC, PE #### [employer] [facility] [place], [place] [phone] Food Safety Auditor: Bala Skelton MD Hep B Surf Ag Non-Reactive Normal [facility] Comment on above: Performed By: #### A NAX, IFX, PHEP, FKLLC, PE #### [employer] [address] [place] [address] [phone] Food Safety Auditor: Bala Skelton MD Hep C Ab Non-Reactive Normal NR [facility] Comment on above: Result Comment: [...] A NAX, IFX, PHEP, FKLLC, PE #### [facility] [address] [place] [address] Food Safety Auditor: Bala Skelton MD Hepatitis Panel, Acuteon HAV IgM IA Qn (S) Non-Reactive NONREACTIVE [facility] Hep B Core Ab, IgM Non-Reactive NONREACTIVE [facility] Hepatitis B Surface Ag Non-Reactive NONREACTIVE [facility] Hepatitis C Ab Non-Reactive NONREACTIVE [facility] Comment on above: The hepatitis C [...] recommended by ordering HCV RNA by PCR. [facility] Immunofixation serum profile on 07-22-2022 Pathologist Cyto stain Nom (Cvx/Vag) [ID] Reviewed by pathologist: Mary Stovall M.D. [facility] Serum IFX Interp IMMUNOFIXATION IS NEGATIVE FOR MONOCLONAL IMMUNOGLOBULIN. [facility] Immun[employer] urine random profileon 07-22-2022 Protein (U) [Mass/Vol] 144 mg/dL [facility] Urine IFX Interp IMMUNOFIXATION IS NEGATIVE FOR MONOCLONAL IMMUNOGLOBULIN. [facility] Urine IFX Specimen .URINE [facility] Immunofixation,Bloodon 07-22 IFX - Interpret. IMMUNOFIXATION IS NEGATIVE FOR MONOCLONAL IMMUNOGLOBULIN. Normal [facility] Comment on above: Performed By: #### A NAX, IFX, PHEP, FKLLC, PE #### [facility] [employer] [address] [place] [address] [phone] Food Safety Auditor: Bala Skelton MD Pathologist Review: Reviewed by pathologist: Mary Stovall M.D. [facility] Comment on above: Performed By: #### A NAX, IFX, PHEP, FKLLC, PE #### [facility] [address] [place] [address] [phone] Food Safety Auditor: Bala Skelton MD Immunofixation,Urineon 07-22 Ur. IFX-Interpret IMMUNOFIXATION IS NEGATIVE FOR MONOCLONAL IMMUNOGLOBULIN. [facility] Comment on above: Performed By: #### A NAX, IFX, PHEP, FKLLC, PE #### [facility] [employer] [address] [place] [address] [phone] Food Safety Auditor: Bala Skelton MD Lactic Acidon 07-22-2022 Lactic Acid,Whole Bl 1.9 mmol/L Normal 0.7-2.1 [facility] Comment on above: Performed By: #### A NAX, IFX, PHEP, FKLLC, PE #### [facility] [address] [place] [address] [phone] Food Safety Auditor: Bala Skelton MD Lactic Acid, Whole Blood 1.9 mmol/L 0.7 - 2.1 mmol/L [facility] Lactic Acid,Whole Bl 2.3 mmol/L High 0.7-2.1 [facility] Comment on above: Performed By: #### L ACTIC #### [facility] [employer] [address] [place] [address] [phone] Food Safety Auditor: Bala Skelton MD Interpretation and review of laboratory results Abnormal [facility] Lactic Acid, Whole Blood 2.3 mmol/L High 0.7 - 2.1 mmol/L [facility] POC Glucose Fingerstickon Glucose [Mass/Vol] 164 mg/dL High 65 - 105 mg/dL [facility] Interpretation and review of laboratory results Abnormal [facility] Glucose [Mass/Vol] 177 mg/dL High 65 - 105 mg/dL [facility] Interpretation and review of laboratory results Abnormal [facility] Prot. Electroph, Blon 2021 Pathologist Review: Reviewed by pathologist: Mary Stovall M.D. [facility] Comment on above: Performed By: #### A NAX, IFX, PHEP, FKLLC, PE #### [address] [address] Food Safety Auditor: Bala Skelton MD Prot. Elect-Interp NORMAL ELECTROPHORET IC PATTERN Normal [facility] Comment on above: Result Comment: IMMU NOFIXATION IS NEGATIVE FOR MONOCLONAL IMMUNOGLOBULIN. Performed By: #### A NAX, IFX, PHEP, FKLLC, PE #### [address] [address] Food Safety Auditor: Bala Skelton MD Total Prot. Sum 6.2 g/dL Low 6.3-8.2 [facility] Comment on above: Performed By: #### A NAX, IFX, PHEP, FKLLC, PE #### [address] [address] Food Safety Auditor: Bala Skelton MD Total Prot. Sum,% 100 % Normal 98-102 [facility] Comment on above: Performed By: #### A NAX, IFX, PHEP, FKLLC, PE #### [address] [address] Food Safety Auditor: Bala Skelton MD Prot. Electrophoresis, Uron 07-22-2022 Pathologist Review: Reviewed by pathologist: Mary Stovall M.D. [facility] Comment on above: Performed By: #### A NAX, IFX, PHEP, FKLLC, PE #### [employer] [address] [place], [place] [phone] Food Safety Auditor: Bala Skelton MD Ur.-Prot.Elect-Inter ELEVATED PROTEIN CONCENTRATION. MOST SERUM PROTEINS ARE DETECTED IN THIS URINE. Normal [facility] Comment on above: Result Comment: USUA LLY OBSERVED WITH MARKEDLY INCREASED NON-SELECTIVE GLOMERULAR PERMEABILITY (i.e. SEVERE GLOMERULAR DISEASE), CONTAMINATION OF URINE WITH BLOOD, OR A COMBINATION OF THESE. A DECREASE IN TUBULAR FUNCTION CANNOT BE RULED OUT. IMMUNOFIXATION IS NEGATIVE FOR MONOCLONAL IMMUNOGLOBULIN. Performed By: #### A NAX, IFX, PHEP, FKLLC, PE #### [employer] [address] [place] [address] Food Safety Auditor: Bala Skelton MD Protein Electrophoresis, Uri neon 07-22-2022 P E Interpretation, U ELEVATED PROTEIN CONCENTRATION. MOST SERUM PROTEINS ARE DETECTED IN THIS URINE. USUALLY OBSERVED WITH MARKEDLY INCREASED NON-SELECTIVE GLOMERULAR PERMEABILITY (i.e. SEVERE GLOMERULAR DISEASE), CONTAMINATION OF [facility] Comment on above: URINE WITH BLOOD, OR A COMBINATION OF THESE. A DECREASE IN TUBULAR FUNCTION CANNOT BE RULED OUT. IMMUNOFIXATION IS NEGATIVE FOR MONOCLONAL IMMUNOGLOBULIN. Pathologist Reviewed by pathologist: Mary Stovall M.D. [employer] Protein (U) [Mass/Vol] 144 mg/dL [facility] Specimen Type .URINE [facility] Basic Metab w/rfx MGon 07-21 (cont.) Normal [facility] Comment on above: Result Comment: Aver age GFR for 50-59 years old: 93 mL/min/1.73sq m Chronic Kidney Disease: <60 mL/min/1.73sq m Kidney failure: <15 mL/min/1.73sq m eGFR calculated using average adult body mass. Additional eGFR calculator available at: http://www.[employer]/multiple_crcl_2012.htm Performed By: #### A NAX, IFX, PHEP, FKLLC, PE #### [address] [address] Food Safety Auditor: Bala Skelton MD Anion gap [Moles/Vol] 12 mmol/L Normal 9-17 [facility] Comment on above: Performed By: #### A NAX, IFX, PHEP, FKLLC, PE #### [address] [address] Food Safety Auditor: Bala Skelton MD Calcium [Mass/Vol] 8.3 mg/dL Low 8.6-10.4 [facility] Comment on above: Performed By: #### A NAX, IFX, PHEP, FKLLC, PE #### [address] [address] Food Safety Auditor: Bala Skelton MD Chloride [Moles/Vol] 101 mmol/L Normal 98-107 [facility] Comment on above: Performed By: #### A NAX, IFX, PHEP, FKLLC, PE #### [address] [address] Food Safety Auditor: Bala Skelton MD CO2 [Moles/Vol] 23 mmol/L Normal 20-31 [facility] Comment on above: Performed By: #### A NAX, IFX, PHEP, FKLLC, PE #### [address] [address] Food Safety Auditor: Bala Skelton MD Creatinine [Mass/Vol] 1.00 mg/dL High 0.50-0.90 [facility] Comment on above: Performed By: #### A NAX, IFX, PHEP, FKLLC, PE #### [address] [address] Food Safety Auditor: Bala Skelton MD GFR, Amer >60 Normal >60 [facility] Comment on above: Performed By: #### A NAX, IFX, PHEP, FKLLC, PE #### [facility] [employer] [address] [place] [address] Food Safety Auditor: Bala Skelton MD GFR,non Amer 59 mL/min Low >60 [facility] Comment on above: Performed By: #### A NAX, IFX, PHEP, FKLLC, PE #### [facility] [employer] [address] [place] [address] Food Safety Auditor: Bala Skelton MD Glucose [Mass/Vol] 157 mg/dL High 70-99 [facility] Comment on above: Performed By: #### A NAX, IFX, PHEP, FKLLC, PE #### [facility] [employer] [address] [place] [address] Food Safety Auditor: Bala Skelton MD Potassium [Moles/Vol] 3.7 mmol/L Normal 3.7-5.3 [facility] Comment on above: Performed By: #### A NAX, IFX, PHEP, FKLLC, PE #### [address] [address] Food Safety Auditor: Bala Skelton MD Sodium [Moles/Vol] 136 mmol/L Normal 135-144 [facility] Comment on above: Performed By: #### A NAX, IFX, PHEP, FKLLC, PE #### [facility] [employer] [address] [place] [address] Food Safety Auditor: Bala Skelton MD Urea nitrogen [Mass/Vol] 26 mg/dL High 6-20 [facility] Comment on above: Performed By: #### A NAX, IFX, PHEP, FKLLC, PE #### [facility] [employer] [address] [place] [address] Food Safety Auditor: Bala Skelton MD (cont.) Normal [facility] Comment on above: Result Comment: Aver age GFR for 50-59 years old: 93 mL/min/1.73sq m Chronic Kidney Disease: <60 mL/min/1.73sq m Kidney failure: <15 mL/min/1.73sq m eGFR calculated using average adult body mass. Additional eGFR calculator available at: http://www.[employer]multiple_crcl_2012.htm Performed By: #### B C #### [facility] [employer] [address] [place] [address]39 Food Safety Auditor: Bala Skleton MD Anion gap [Moles/Vol] 13 mmol/L Normal 9-17 [facility] Comment on above: Performed By: #### B C #### [address] [address] Food Safety Auditor: Bala Skelton MD Calcium [Mass/Vol] 8.1 mg/dL Low 8.6-10.4 [facility] Comment on above: Performed By: #### B C #### [facility] [employer] [address] [place] [address]52 Food Safety Auditor: Bala Skelton MD Chloride [Moles/Vol] 101 mmol/L Normal 98-107 [facility] Comment on above: Performed By: #### B C #### [facility] [employer] [address] [place] [address] 07851 Food Safety Auditor: Bala Skelton MD CO2 [Moles/Vol] 20 mmol/L Normal 20-31 [facility] Comment on above: Performed By: #### B C #### [facility] [employer] [address] [place] [address]28 Food Safety Auditor: Bala Skelton MD Creatinine [Mass/Vol] 1.28 mg/dL High 0.50-0.90 [facility] Comment on above: Performed By: #### B C #### [address] [address] Food Safety Auditor: Bala Skelton MD GFR, Amer 54 mL/min Low >60 [facility] Comment on above: Performed By: #### B C #### [address] [address] Food Safety Auditor: Bala Skelton MD GFR,non Amer 44 mL/min Low >60 [facility] Comment on above: Performed By: #### B C #### [address] [address] Food Safety Auditor: Bala Skelton MD Glucose [Mass/Vol] 224 mg/dL High 70-99 [facility] Comment on above: Performed By: #### B C #### [address] [address] Food Safety Auditor: Bala Skelton MD Potassium [Moles/Vol] 3.8 mmol/L Normal 3.7-5.3 [facility] Comment on above: Performed By: #### B C #### [address] [address] Food Safety Auditor: Bala Skelton MD Sodium [Moles/Vol] 134 mmol/L Low 135-144 [facility] Comment on above: Performed By: #### B C #### [address] [address] Food Safety Auditor: Bala Skelton MD Urea nitrogen [Mass/Vol] 28 mg/dL High 6-20 [facility] Comment on above: Performed By: #### B C #### [address] [address] Food Safety Auditor: Bala Skelton MD Anion gap [Moles/Vol] 13 mmol/L Normal 9-17 [facility] Comment on above: Performed By: #### A NAX, IFX, PHEP, FKLLC, PE #### [address] [place] [address] Food Safety Auditor: Bala Skelton MD Sodium [Moles/Vol] 131 mmol/L Low 135-144 [facility] Comment on above: Performed By: #### A NAX, IFX, PHEP, FKLLC, PE #### [facility] [employer] [address] [place] [address]51 Food Safety Auditor: Bala Skelton MD (cont.) Normal [facility] Comment on above: Result Comment: Aver age GFR for 50-59 years old: 93 mL/min/1.73sq m Chronic Kidney Disease: <60 mL/min/1.73sq m Kidney failure: <15 mL/min/1.73sq m eGFR calculated using average adult body mass. Additional eGFR calculator available at: http://www.[employer]multiple_crcl_2012.htm Performed By: #### A NAX, IFX, PHEP, FKLLC, PE #### [facility] [employer] [address] [place] [address] Food Safety Auditor: Bala Skelton MD Calcium [Mass/Vol] 8.4 mg/dL Low 8.6-10.4 [facility] Comment on above: Performed By: #### A NAX, IFX, PHEP, FKLLC, PE #### [facility] [employer] [address] [place] [address]56 Food Safety Auditor: Bala Skelton MD Chloride [Moles/Vol] 100 mmol/L Normal 98-107 [facility] Comment on above: Performed By: #### A NAX, IFX, PHEP, FKLLC, PE #### [facility] [employer] [address] [place] [address]26 Food Safety Auditor: Bala Skelton MD CO2 [Moles/Vol] 18 mmol/L Low 20-31 [facility] Comment on above: Performed By: #### A NAX, IFX, PHEP, FKLLC, PE #### [facility] [employer] [address] [place] [address] Food Safety Auditor: Bala Skelton MD Creatinine [Mass/Vol] 1.37 mg/dL High 0.50-0.90 [facility] Comment on above: Performed By: #### A NAX, IFX, PHEP, FKLLC, PE #### [facility] [address] [place] [address] Food Safety Auditor: Bala Skelton MD GFR, Amer 49 mL/min Low >60 [facility] Comment on above: Performed By: #### A NAX, IFX, PHEP, FKLLC, PE #### [facility] [employer] [address] [place] [address] Food Safety Auditor: Bala Skelton MD GFR,non Amer 41 mL/min Low >60 [facility] Comment on above: Performed By: #### A NAX, IFX, PHEP, FKLLC, PE #### [facility] [employer] [address] [place] [address]38 Food Safety Auditor: Bala Skelton MD Glucose [Mass/Vol] 184 mg/dL High 70-99 [facility] Comment on above: Performed By: #### A NAX, IFX, PHEP, FKLLC, PE #### [address] [address] Food Safety Auditor: Bala Skelton MD Potassium [Moles/Vol] 3.8 mmol/L Normal 3.7-5.3 [facility] Comment on above: Performed By: #### A NAX, IFX, PHEP, FKLLC, PE #### [facility] [employer] [address] [place] [address] 84565 Food Safety Auditor: Bala Skelton MD Urea nitrogen [Mass/Vol] 27 mg/dL High 6-20 [facility] Comment on above: Performed By: #### A NAX, IFX, PHEP, FKLLC, PE #### [facility] [address] [place] [address] Food Safety Auditor: Bala Skelton MD Basic Metabolic Panel w/ Ref romulo to MGon 07-21-2022 Anion gap [Moles/Vol] 12 mmol/L 9 - 17 mmol/L [employer] Calcium [Mass/Vol] 8.3 mg/dL Low 8.6 - 10. 4 mg/dL [facility] Chloride [Moles/Vol] 101 mmol/L 98 - 10 7 mmol/L [employer] CO2 [Moles/Vol] 23 mmol/L 20 - 31 mmol/L [employer] [facility] Creatinine [Mass/Vol] 1 mg/dL High 0.5 - 0.9 mg/dL [employer] GFR >60 60 - PI NF mL/min [employer] GFR Non- 59 mL/min Low 60 - PINF mL/min [employer] GFR/1.73 sq M.predicted MDRD (S/P/Bld) [Vol rate/Area] [facility] [employer] Comment on above: Average GFR for 50-5 9 years old: 93 mL/min/1.73sq m Chronic Kidney Disease: <60 mL/min/1.73sq m Kidney failure: <15 mL/min/1.73sq m eGFR calculated using average adult body mass. Additional eGFR calculator available at: http://www.[employer]/multiple_crcl_2012.htm Glucose [Mass/Vol] 157 mg/dL High 70 - 99 mg/dL [facility] [employer] Interpretation and review of laboratory results Abnormal [facility] Potassium [Moles/Vol] 3.7 mmol/L 3.7 - 5.3 mmol/L [facility] Sodium [Moles/Vol] 136 mmol/L 135 - 144 mmol/L [facility] [employer] Urea nitrogen (BldV) [Mass/Vol] 26 mg/dL High 6 - 20 mg/dL [facility] Anion gap [Moles/Vol] 13 mmol/L 9 - 17 mmol/L [facility] Calcium [Mass/Vol] 8.1 mg/dL Low 8.6 - 10. 4 mg/dL [facility] Chloride [Moles/Vol] 101 mmol/L 98 - 10 7 mmol/L [facility] CO2 [Moles/Vol] 20 mmol/L 20 - 31 mmol/L [facility] Creatinine [Mass/Vol] 1.28 mg/dL High 0.5 - 0.9 mg/dL [facility] GFR 54 mL/min Low 60 - PI NF mL/min [facility] GFR Non- 44 mL/min Low 60 - PINF mL/min [facility] GFR/1.73 sq M.predicted MDRD (S/P/Bld) [Vol rate/Area] [facility] Comment on above: Average GFR for 50-5 9 years old: 93 mL/min/1.73sq m Chronic Kidney Disease: <60 mL/min/1.73sq m Kidney failure: <15 mL/min/1.73sq m eGFR calculated using average adult body mass. Additional eGFR calculator available at: http://www.[employer]multiple_crcl_2012.htm Glucose [Mass/Vol] 224 mg/dL High 70 - 99 mg/dL [facility] Interpretation and review of laboratory results Abnormal [facility] Potassium [Moles/Vol] 3.8 mmol/L 3.7 - 5.3 mmol/L [facility] Sodium [Moles/Vol] 134 mmol/L Low 135 - 144 mmol/L [facility] Urea nitrogen (BldV) [Mass/Vol] 28 mg/dL High 6 - 20 mg/dL [facility] Immunofixation,Urineon 07-21 Protein (U) [Mass/Vol] 144 mg/dL Normal [facility] Comment on above: Performed By: #### A NAX, IFX, PHEP, FKLLC, PE #### [facility] [place] [address] Food Safety Auditor: Bala Skelton MD Type of Specimen .URINE Normal [facility] Comment on above: Performed By: #### A NAX, IFX, PHEP, FKLLC, PE #### [facility] [address] [place] [address] [phone] Food Safety Auditor: Bala Skelton MD Lactic Acidon 07-21-2022 Lactic Acid,Whole Bl 2.5 mmol/L High 0.7-2.1 [facility] Comment on above: Performed By: #### A NAX, IFX, PHEP, FKLLC, PE #### [facility] [address] [place] [address] [phone] Food Safety Auditor: Bala Skelton MD Interpretation and review of laboratory results Abnormal [facility] Lactic Acid, Whole Blood 2.5 mmol/L High 0.7 - 2.1 mmol/L [facility] Lactic Acid,Whole Bl 1.9 mmol/L Normal 0.7-2.1 [facility] Comment on above: Performed By: #### L ACTIC #### [facility] [address] [place] [address] [phone] Food Safety Auditor: Bala Skelton MD Lactic Acid, Whole Blood 1.9 mmol/L 0.7 - 2.1 mmol/L [facility] Lactic Acid,Whole Bl 3.0 mmol/L High 0.7-2.1 [facility] Comment on above: Performed By: #### A NAX, IFX, PHEP, FKLLC, PE #### [facility] [address] [place] [address] [phone] Food Safety Auditor: Bala Skelton MD Interpretation and review of laboratory results Abnormal [facility] Lactic Acid, Whole Blood 3.0 mmol/L High 0.7 - 2.1 mmol/L [facility] Lactic Acid,Whole Bl 2.2 mmol/L High 0.7-2.1 [facility] Comment on above: Performed By: #### A NAX, IFX, PHEP, FKLLC, PE #### [employer] [facility] [place], [place] [phone] Food Safety Auditor: Bala Skelton MD Interpretation and review of laboratory results Abnormal [facility] Lactic Acid, Whole Blood 2.2 mmol/L High 0.7 - 2.1 mmol/L [facility] Glucose Fingerstickon Glucose [Mass/Vol] 210 mg/dL High 65 - 105 mg/dL [facility] Interpretation and review of laboratory results Abnormal [facility] Glucose [Mass/Vol] 142 mg/dL High 65 - 105 mg/dL [facility] Interpretation and review of laboratory results Abnormal [facility] Glucose [Mass/Vol] 227 mg/dL High 65 - 105 mg/dL [facility] Interpretation and review of laboratory results Abnormal [facility] Glucose [Mass/Vol] 219 mg/dL High 65 - 105 mg/dL [facility] Interpretation and review of laboratory results Abnormal [facility] Prot. Electroph, Blon 2021 Albumin [Mass/Vol] 3.6 g/dL Normal 3.2-5.2 [facility] Comment on above: Performed By: #### A NAX, IFX, PHEP, FKLLC, PE #### [facility] [address] [place] [address] [phone] Food Safety Auditor: Bala Skelton MD Albumin, % 57 % Normal 45-65 [facility] Comment on above: Performed By: #### A NAX, IFX, PHEP, FKLLC, PE #### [facility] [address] [place] [address] [phone] Food Safety Auditor: Bala Skelton MD [id number]-5-[id number] 0.2 g/dL Normal 0.1-0.4 [facility] Comment on above: Performed By: #### A NAX, IFX, PHEP, FKLLC, PE #### [facility] [address] [place] [address]35 Food Safety Auditor: Bala Skelton MD [id number]-3-[id number],% 4 % Normal 3-6 [facility] Comment on above: Performed By: #### A NAX, IFX, PHEP, FKLLC, PE #### [facility] [address] [place] [address]40 Food Safety Auditor: Bala Skelton MD [id number]-1-vinblqmvx 0.9 g/dL Normal 0.5-0.9 [facility] Comment on above: Performed By: #### A NAX, IFX, PHEP, FKLLC, PE #### [address] [address] Food Safety Auditor: Bala Skelton MD [id number],% 15 % High 6-13 [facility] Comment on above: Performed By: #### A NAX, IFX, PHEP, FKLLC, PE #### [address] [address] Food Safety Auditor: Bala Skelton MD Beta-globulins 0.9 g/dL Normal 0.5-1.1 [facility] Comment on above: Performed By: #### A NAX, IFX, PHEP, FKLLC, PE #### [facility] [address] [place] [address]16 Food Safety Auditor: Bala Skelton MD Beta-globulins,% 14 % Normal 11-19 [facility] Comment on above: Performed By: #### A NAX, IFX, PHEP, FKLLC, PE #### [address] [address] Food Safety Auditor: Bala Skelton MD Gamma-globulins 0.6 g/dL Normal 0.5-1.5 [facility] Comment on above: Performed By: #### A NAX, IFX, PHEP, FKLLC, PE #### [facility] [address] [place], [place] [phone] Food Safety Auditor: Bala Skelton MD Gamma-globulins,% 10 % Normal - [facility] Comment on above: Performed By: #### A NAX, IFX, PHEP, FKLLC, PE #### [facility] [address] [place], [place] [phone] Food Safety Auditor: Bala Skelton MD Prot. Electrophoresis, Uron 07-21-2022 Total Protein Conc. 144 mg/dL Normal [facility] Comment on above: Performed By: #### A NAX, IFX, PHEP, FKLLC, PE #### [facility] [place], [place] [phone] Food Safety Auditor: Bala Skelton MD BLOOD GAS, VENOUSon 07-20-20 22 Carboxyhemoglobin 1.4 % 0 - 5 % [employer] Comment on above: Reference Range: Non-Smokers 0-2% Average Smoker 2-4% Heavy Smoker <10% FIO2 INFORMATION NOT PROVIDED [facility] [employer] HCO3 (Bld) [Moles/Vol] 19.6 mmol/L Low 24 - 30 mmol/L [employer] Interpretation and review of laboratory results Abnormal [facility] [employer] Negative Base Excess, Olaf 5.6 mmol/L High 0 - 2 mmol/L [employer] Oxygen saturation in Blood 74.4 % 60 - 85 % [employer] pCO2, Olaf 39.5 39 - 55 [employer] pH, Olaf 7.316 Low 7.32 - 7.42 [employer] pO2, Olaf 36.9 30 - 50 [employer] Pt Temp 37.0 [employer] [facility] Basic Metab w/rfx MGon 07-20 (cont.) Normal [facility] Comment on above: Result Comment: Aver age GFR for 50-59 years old: 93 mL/min/1.73sq m Chronic Kidney Disease: <60 mL/min/1.73sq m Kidney failure: <15 mL/min/1.73sq m eGFR calculated using average adult body mass. Additional eGFR calculator available at: http://www.[employer]/multiple_crcl_2012.htm Performed By: #### A NAX, IFX, PHEP, FKLLC, PE #### [facility] [address] [place] [address]68 Food Safety Auditor: Bala Skelton MD Anion gap [Moles/Vol] 13 mmol/L Normal 9-17 [facility] Comment on above: Performed By: #### A NAX, IFX, PHEP, FKLLC, PE #### [address] [address] Food Safety Auditor: Bala Skelton MD Calcium [Mass/Vol] 8.7 mg/dL Normal 8.6-10.4 [facility] Comment on above: Performed By: #### A NAX, IFX, PHEP, FKLLC, PE #### [address] [address] Food Safety Auditor: Bala Skelton MD Chloride [Moles/Vol] 97 mmol/L Low 98-107 [facility] Comment on above: Performed By: #### A NAX, IFX, PHEP, FKLLC, PE #### [facility] [address] [place] [address]75 Food Safety Auditor: Bala Skelton MD CO2 [Moles/Vol] 18 mmol/L Low 20-31 [facility] Comment on above: Performed By: #### A NAX, IFX, PHEP, FKLLC, PE #### [facility] [address] [place] [address]651 Food Safety Auditor: Bala Skelton MD Creatinine [Mass/Vol] 1.62 mg/dL High 0.50-0.90 [facility] Comment on above: Performed By: #### A NAX, IFX, PHEP, FKLLC, PE #### [facility] [address] [place] [address] Food Safety Auditor: Bala Skelton MD GFR, Amer 41 mL/min Low >60 [facility] Comment on above: Performed By: #### A NAX, IFX, PHEP, FKLLC, PE #### [facility] [address] [place] [address] Food Safety Auditor: Bala Skelton MD GFR,non Amer 34 mL/min Low >60 [facility] Comment on above: Performed By: #### A NAX, IFX, PHEP, FKLLC, PE #### [address] [address] Food Safety Auditor: Bala Skelton MD Glucose [Mass/Vol] 360 mg/dL High 70-99 [facility] Comment on above: Performed By: #### A NAX, IFX, PHEP, FKLLC, PE #### [address] [address] Food Safety Auditor: Bala Skelton MD Potassium [Moles/Vol] 5.1 mmol/L Normal 3.7-5.3 [facility] Comment on above: Performed By: #### A NAX, IFX, PHEP, FKLLC, PE #### [address] [address] Food Safety Auditor: Bala Skelton MD Sodium [Moles/Vol] 128 mmol/L Low 135-144 [facility] Comment on above: Performed By: #### A NAX, IFX, PHEP, FKLLC, PE #### [facility] [employer] [address] [place] [address]856 Food Safety Auditor: Bala Skelton MD Urea nitrogen [Mass/Vol] 32 mg/dL High 6-20 [facility] Comment on above: Performed By: #### A NAX, IFX, PHEP, FKLLC, PE #### [facility] [employer] [address] [place] [address] Food Safety Auditor: Bala Skelton MD (cont.) [facility] Comment on above: Result Comment: Aver age GFR for 50-59 years old: 93 mL/min/1.73sq m Chronic Kidney Disease: <60 mL/min/1.73sq m Kidney failure: <15 mL/min/1.73sq m eGFR calculated using average adult body mass. Additional eGFR calculator available at: http://www.[employer]multiple_crcl_2011.htm Performed By: #### A NAX, IFX, PHEP, FKLLC, PE #### [address] [address] Food Safety Auditor: Bala Skelton MD Anion gap [Moles/Vol] 14 mmol/L Normal 9-17 [facility] Comment on above: Performed By: #### A NAX, IFX, PHEP, FKLLC, PE #### [facility] [employer] [address] [place] [address] Food Safety Auditor: Bala Skelton MD Calcium [Mass/Vol] 8.2 mg/dL Low 8.6-10.4 [facility] Comment on above: Performed By: #### A NAX, IFX, PHEP, FKLLC, PE #### [facility] [employer] [address] [place] [address] Food Safety Auditor: Bala Seklton MD Chloride [Moles/Vol] 96 mmol/L Low 98-107 [facility] Comment on above: Performed By: #### A NAX, IFX, PHEP, FKLLC, PE #### [facility] [employer] [address] [place] [address] Food Safety Auditor: Bala Skelton MD CO2 [Moles/Vol] 17 mmol/L Low 20-31 [facility] Comment on above: Performed By: #### A NAX, IFX, PHEP, FKLLC, PE #### [facility] [address] [place] [address] Food Safety Auditor: Bala Skelton MD Creatinine [Mass/Vol] 1.68 mg/dL High 0.50-0.90 [facility] Comment on above: Performed By: #### A NAX, IFX, PHEP, FKLLC, PE #### [address] [address] Food Safety Auditor: Bala Skelton MD GFR, Amer 39 mL/min Low >60 [facility] Comment on above: Performed By: #### A NAX, IFX, PHEP, FKLLC, PE #### [address] [address] Food Safety Auditor: Bala Skelton MD GFR,non Amer 32 mL/min Low >60 [facility] Comment on above: Performed By: #### A NAX, IFX, PHEP, FKLLC, PE #### [facility] [employer] [address] [place] [address] Food Safety Auditor: Bala Skelton MD Potassium [Moles/Vol] 4.4 mmol/L Normal 3.7-5.3 [facility] Comment on above: Performed By: #### A NAX, IFX, PHEP, FKLLC, PE #### [facility] [employer] [address] [place] [address] Food Safety Auditor: Bala Skelton MD Sodium [Moles/Vol] 127 mmol/L Low 135-144 [facility] Comment on above: Performed By: #### A NAX, IFX, PHEP, FKLLC, PE #### [facility] [employer] [address] [place] [address] [phone] Food Safety Auditor: Bala Skelton MD Urea nitrogen [Mass/Vol] 33 mg/dL High 6-20 [facility] Comment on above: Performed By: #### A NAX, IFX, PHEP, FKLLC, PE #### [address] [address] Food Safety Auditor: Bala Skelton MD Glucose [Mass/Vol] 427 mg/dL Critically high 70-99 B ON [facility] Comment on above: Performed By: #### A NAX, IFX, PHEP, FKLLC, PE #### [address] [address] Food Safety Auditor: Bala Skelton MD Glucose [Mass/Vol] 416 mg/dL Critically high 70-99 M [facility] Comment on above: Performed By: #### A NAX, IFX, PHEP, FKLLC, PE #### [address] [id number] Food Safety Auditor: Bala Skelton MD (cont.) [facility] Comment on above: Result Comment: Aver age GFR for 50-59 years old: 93 mL/min/1.73sq m Chronic Kidney Disease: <60 mL/min/1.73sq m Kidney failure: <15 mL/min/1.73sq m eGFR calculated using average adult body mass. Additional eGFR calculator available at: http://www.[employer]/multiple_crcl_2012.htm Performed By: #### A NAX, IFX, PHEP, FKLLC, PE #### [address] [address] Food Safety Auditor: Bala Skelton MD Anion gap [Moles/Vol] 15 mmol/L Normal 9-17 [facility] Comment on above: Performed By: #### A NAX, IFX, PHEP, FKLLC, PE #### [address] [address] Food Safety Auditor: Bala Skelton MD Calcium [Mass/Vol] 8.5 mg/dL Low 8.6-10.4 [facility] Comment on above: Performed By: #### A NAX, IFX, PHEP, FKLLC, PE #### [address] [address] Food Safety Auditor: Bala Skelton MD Chloride [Moles/Vol] 95 mmol/L Low 98-107 [facility] Comment on above: Performed By: #### A NAX, IFX, PHEP, FKLLC, PE #### [address] [address] Food Safety Auditor: Bala Skelton MD CO2 [Moles/Vol] 18 mmol/L Low 20-31 [facility] Comment on above: Performed By: #### A NAX, IFX, PHEP, FKLLC, PE #### [address] [address] Food Safety Auditor: Bala Skelton MD Creatinine [Mass/Vol] 2.11 mg/dL High 0.50-0.90 [facility] Comment on above: Performed By: #### A NAX, IFX, PHEP, FKLLC, PE #### [address] [address] Food Safety Auditor: Bala Skelton MD GFR, Amer 30 mL/min Low >60 [facility] Comment on above: Performed By: #### A NAX, IFX, PHEP, FKLLC, PE #### [address] [address] Food Safety Auditor: Bala Skelton MD GFR,non Amer 25 mL/min Low >60 [facility] Comment on above: Performed By: #### A NAX, IFX, PHEP, FKLLC, PE #### [facility] [address] [place] [address] Food Safety Auditor: Bala Skelton MD Potassium [Moles/Vol] 5.0 mmol/L Normal 3.7-5.3 [facility] Comment on above: Performed By: #### A NAX, IFX, PHEP, FKLLC, PE #### [facility] [address] [place] [address] Food Safety Auditor: Bala Skelton MD Sodium [Moles/Vol] 128 mmol/L Low 135-144 [facility] Comment on above: Performed By: #### A NAX, IFX, PHEP, FKLLC, PE #### [facility] [address] [place] [address] Food Safety Auditor: Bala Skelton MD Urea nitrogen [Mass/Vol] 38 mg/dL High 6-20 [facility] Comment on above: Performed By: #### A NAX, IFX, PHEP, FKLLC, PE #### [facility] [address] [place] [address] Food Safety Auditor: Bala Skelton MD Basic Metabolic Panel 07-07 Anion gap [Moles/Vol] 16 mmol/L 9 - 17 mmol/L [employer] Calcium [Mass/Vol] 8.2 mg/dL Low 8.6 - 10. 4 mg/dL [employer] Chloride [Moles/Vol] 95 mmol/L Low 98 - 10 7 mmol/L [employer] CO2 [Moles/Vol] 17 mmol/L Low 20 - 31 mmol/L [employer] Creatinine [Mass/Vol] 2.35 mg/dL High 0.5 - 0.9 mg/dL [employer] GFR 27 mL/min Low 60 - PI NF mL/min Mark media GFR Non- 22 mL/min Low 60 - PINF mL/min [employer] media GFR/1.73 sq M.predicted MDRD (S/P/Bld) [Vol rate/Area] [facility] Comment on above: Average GFR for 50-5 9 years old: 93 mL/min/1.73sq m Chronic Kidney Disease: <60 mL/min/1.73sq m Kidney failure: <15 mL/min/1.73sq m eGFR calculated using average adult body mass. Additional eGFR calculator available at: http://www.[employer]multiple_crcl_2012.htm Glucose [Mass/Vol] 439 mg/dL Critically high 70 - 99 mg/d L [facility] hetras Interpretation and review of laboratory results Abnormal [facility] Potassium [Moles/Vol] 5.2 mmol/L 3.7 - 5.3 mmol/L [facility] Sodium [Moles/Vol] 128 mmol/L Low 135 - 144 mmol/L [facility] hetras Urea nitrogen (BldV) [Mass/Vol] 37 mg/dL High 6 - 20 mg/dL [facility] Basic Metabolic Panel w/ Ref romulo to MGon 07-20-2022 Anion gap [Moles/Vol] 13 mmol/L 9 - 17 mmol/L [facility] Calcium [Mass/Vol] 8.4 mg/dL Low 8.6 - 10. 4 mg/dL [facility] Chloride [Moles/Vol] 100 mmol/L 98 - 10 7 mmol/L [facility] hetras CO2 [Moles/Vol] 18 mmol/L Low 20 - 31 mmol/L [facility] Creatinine [Mass/Vol] 1.37 mg/dL High 0.5 - 0.9 mg/dL [facility] GFR 49 mL/min Low 60 - PI NF mL/min [facility] GFR Non- 41 mL/min Low 60 - PINF mL/min [facility] hetras GFR/1.73 sq M.predicted MDRD (S/P/Bld) [Vol rate/Area] [facility] Comment on above: Average GFR for 50-5 9 years old: 93 mL/min/1.73sq m Chronic Kidney Disease: <60 mL/min/1.73sq m Kidney failure: <15 mL/min/1.73sq m eGFR calculated using average adult body mass. Additional eGFR calculator available at: http://www.[employer]_crcl_2012.htm Glucose [Mass/Vol] 184 mg/dL High 70 - 99 mg/dL [facility] hetras Interpretation and review of laboratory results Abnormal [facility] hetras Potassium [Moles/Vol] 3.8 mmol/L 3.7 - 5.3 mmol/L [facility] hetras Sodium [Moles/Vol] 131 mmol/L Low 135 - 144 mmol/L [facility] hetras Urea nitrogen (BldV) [Mass/Vol] 27 mg/dL High 6 - 20 mg/dL [facility] hetras [facility] Anion gap [Moles/Vol] 13 mmol/L 9 - 17 mmol/L [facility] hetras Calcium [Mass/Vol] 8.7 mg/dL 8.6 - 10. 4 mg/dL [facility] hetras Chloride [Moles/Vol] 97 mmol/L Low 98 - 10 7 mmol/L [facility] hetras CO2 [Moles/Vol] 18 mmol/L Low 20 - 31 mmol/L [facility] Creatinine [Mass/Vol] 1.62 mg/dL High 0.5 - 0.9 mg/dL [facility] hetras GFR 41 mL/min Low 60 - PI NF mL/min [facility] hetras GFR Non- 34 mL/min Low 60 - PINF mL/min [facility] hetras GFR/1.73 sq M.predicted MDRD (S/P/Bld) [Vol rate/Area] [facility] Comment on above: Average GFR for 50-5 9 years old: 93 mL/min/1.73sq m Chronic Kidney Disease: <60 mL/min/1.73sq m Kidney failure: <15 mL/min/1.73sq m eGFR calculated using average adult body mass. Additional eGFR calculator available at: http://www.[employer]multiple_crcl_2012.htm Glucose [Mass/Vol] 360 mg/dL High 70 - 99 mg/dL [facility]tras Potassium [Moles/Vol] 5.1 mmol/L 3.7 - 5.3 mmol/L [facility] Sodium [Moles/Vol] 128 mmol/L Low 135 - 144 mmol/L [facility] Urea nitrogen (BldV) [Mass/Vol] 32 mg/dL High 6 - 20 mg/dL [facility] Anion gap [Moles/Vol] 14 mmol/L 9 - 17 mmol/L [facility] Calcium [Mass/Vol] 8.2 mg/dL Low 8.6 - 10. 4 mg/dL [facility] Chloride [Moles/Vol] 96 mmol/L Low 98 - 10 7 mmol/L [facility] CO2 [Moles/Vol] 17 mmol/L Low 20 - 31 mmol/L [facility] Creatinine [Mass/Vol] 1.68 mg/dL High 0.5 - 0.9 mg/dL [facility] GFR 39 mL/min Low 60 - PI NF mL/min [facility] GFR Non- 32 mL/min Low 60 - PINF mL/min [facility] GFR/1.73 sq M.predicted MDRD (S/P/Bld) [Vol rate/Area] [facility] Comment on above: Average GFR for 50-5 9 years old: 93 mL/min/1.73sq m Chronic Kidney Disease: <60 mL/min/1.73sq m Kidney failure: <15 mL/min/1.73sq m eGFR calculated using average adult body mass. Additional eGFR calculator available at: http://www.[employer]/multiple_crcl_2011.htm Interpretation and review of laboratory results Abnormal [facility] Potassium [Moles/Vol] 4.4 mmol/L 3.7 - 5.3 mmol/L [facility] Sodium [Moles/Vol] 127 mmol/L Low 135 - 144 mmol/L [facility] Urea nitrogen (BldV) [Mass/Vol] 33 mg/dL High 6 - 20 mg/dL [facility] Anion gap [Moles/Vol] 15 mmol/L 9 - 17 mmol/L [facility] Calcium [Mass/Vol] 8.5 mg/dL Low 8.6 - 10. 4 mg/dL [facility] Chloride [Moles/Vol] 95 mmol/L Low 98 - 10 7 mmol/L [facility] CO2 [Moles/Vol] 18 mmol/L Low 20 - 31 mmol/L [facility] Creatinine [Mass/Vol] 2.11 mg/dL High 0.5 - 0.9 mg/dL [facility] GFR 30 mL/min Low 60 - PI NF mL/min [facility] GFR Non- 25 mL/min Low 60 - PINF mL/min [facility] GFR/1.73 sq M.predicted MDRD (S/P/Bld) [Vol rate/Area] [facility] Comment on above: Average GFR for 50-5 9 years old: 93 mL/min/1.73sq m Chronic Kidney Disease: <60 mL/min/1.73sq m Kidney failure: <15 mL/min/1.73sq m eGFR calculated using average adult body mass. Additional eGFR calculator available at: http://www.[employer]multiple_crcl_2012.htm Glucose [Mass/Vol] 416 mg/dL Critically high 70 - 99 mg/d L [facility] Interpretation and review of laboratory results Abnormal [facility] Potassium [Moles/Vol] 5.0 mmol/L 3.7 - 5.3 mmol/L [facility] Sodium [Moles/Vol] 128 mmol/L Low 135 - 144 mmol/L [facility] Urea nitrogen (BldV) [Mass/Vol] 38 mg/dL High 6 - 20 mg/dL [facility] Basic Metabolic Profon 07-20 Glucose [Mass/Vol] 439 mg/dL Critically high 70-99 M [facility] Comment on above: Performed By: #### A NAX, IFX, PHEP, FKLLC, PE #### [facility] [place], [place] [id number] Food Safety Auditor: Bala Skelton MD (cont.) [facility] Comment on above: Result Comment: Aver age GFR for 50-59 years old: 93 mL/min/1.73sq m Chronic Kidney Disease: <60 mL/min/1.73sq m Kidney failure: <15 mL/min/1.73sq m eGFR calculated using average adult body mass. Additional eGFR calculator available at: http://www.[employer]/multiple_crcl_2012.htm Performed By: #### A NAX, IFX, PHEP, FKLLC, PE #### [facility] [address] [place] [address] Food Safety Auditor: Bala Skelton MD Anion gap [Moles/Vol] 16 mmol/L Normal 9-17 [facility] Comment on above: Performed By: #### A NAX, IFX, PHEP, FKLLC, PE #### [facility] [address] [place] [address] Food Safety Auditor: Bala Skelton MD Calcium [Mass/Vol] 8.2 mg/dL Low 8.6-10.4 [facility] Comment on above: Performed By: #### A NAX, IFX, PHEP, FKLLC, PE #### [employer] [address] [place] [address] Food Safety Auditor: Bala Skelton MD Chloride [Moles/Vol] 95 mmol/L Low 98-107 [facility] Comment on above: Performed By: #### A NAX, IFX, PHEP, FKLLC, PE #### [employer] [address] [place] [address] Food Safety Auditor: Bala Skelton MD CO2 [Moles/Vol] 17 mmol/L Low 20-31 [facility] Comment on above: Performed By: #### A NAX, IFX, PHEP, FKLLC, PE #### [employer] [address] [place] [address] [phone] Food Safety Auditor: Bala Seklton MD Creatinine [Mass/Vol] 2.35 mg/dL High 0.50-0.90 [facility] Comment on above: Performed By: #### A NAX, IFX, PHEP, FKLLC, PE #### [facility] [address] [place] [phone] Food Safety Auditor: Bala Skelton MD GFR, Amer 27 mL/min Low >60 [facility] Comment on above: Performed By: #### A NAX, IFX, PHEP, FKLLC, PE #### [facility] [address] [place] [address] Food Safety Auditor: Bala Skelton MD GFR,non Amer 22 mL/min Low >60 [facility] Comment on above: Performed By: #### A NAX, IFX, PHEP, FKLLC, PE #### [facility] [address] [place] [address] Food Safety Auditor: Bala Skelton MD Potassium [Moles/Vol] 5.2 mmol/L Normal 3.7-5.3 [facility] Comment on above: Performed By: #### A NAX, IFX, PHEP, FKLLC, PE #### [facility] [employer] [address] [place] [address] Food Safety Auditor: Bala Skelton MD Sodium [Moles/Vol] 128 mmol/L Low 135-144 [facility] Comment on above: Performed By: #### A NAX, IFX, PHEP, FKLLC, PE #### [facility] [address] [place] [address] Food Safety Auditor: Bala Skelton MD Urea nitrogen [Mass/Vol] 37 mg/dL High 6-20 [facility] Comment on above: Performed By: #### A NAX, IFX, PHEP, FKLLC, PE #### [facility] [address] [place] [address] [phone] Food Safety Auditor: Bala Skelton MD C3on 07-20-2022 C3 209 mg/dL High 90-180 [facility] Comment on above: Performed By: #### A NAX, IFX, PHEP, FKLLC, PE #### [facility] [address] [place], [place] [phone] Food Safety Auditor: Bala Skelton MD C3 Complementon 07-20-2022 Complement C3 209 mg/dL High 90 - 180 mg/dL [facility] C4on 07-20-2022 C4 41 mg/dL High 10-40 [facility] Comment on above: Performed By: #### A NAX, IFX, PHEP, FKLLC, PE #### [facility] [address] [place], [place] [phone] Food Safety Auditor: Bala Skelton MD C4 Complementon 07-20-2022 Complement C4 41 mg/dL High 10 - 40 mg/dL [facility] CBC with Auto Differentialon 07-20-2022 Absolute Eos # 0.00 [facility] Absolute Immature Granulocyte 0.07 [facility] Absolute Lymph # 0.46 Low [facility] Absolute [place] # 0.33 [facility] Basophils (Bld) [#/Vol] 0.00 10*3/uL [facility] Basophils/100 WBC (Bld) 0 % 0 - 2 % [facility] Eosinophils/100 WBC (Bld) 0 % Low 1 - 4 % [facility] Hematocrit (Bld) [Volume fraction] 33.3 % Low 36.3 - 47.1 % [facility] Hemoglobin (Bld) [Mass/Vol] 11.0 g/dL Low 11.9 - 15.1 g/dL [facility] Immature granulocytes/100 WBC (Bld) 1 % High 0 [facility] Interpretation and review of laboratory results Abnormal [facility] Lymphocytes/100 WBC (Bld) 7 % Low 24 - 44 % [facility] MCH (RBC) [Entitic mass] 28.6 pg 25.2 - 33.5 pg [facility] MCHC (RBC) [Mass/Vol] 33.0 g/dL 28.4 - 34.8 g/dL [facility] MCV (RBC) [Entitic vol] 86.7 fL 82.6 - 102.9 fL [facility] Monocytes/100 WBC (Bld) 5 % 1 - 7 % [facility] Morphology Bran (Bld) [Interp] Normal [facility] NRBC Automated 0.0 0.0 per 100 WBC [facility] Platelet distribution width (Bld) [Ratio] 13.8 % 11.8 - 14.4 % [facility] Platelets (Bld) [#/Vol] See Reflexed IPF Result [facility] RBC (Bld) [#/Vol] 3.84 10*6/uL Low 3.95 - 5.1 1 m/uL [facility] Segmented neutrophils/100 WBC (Bld) 87 % High 36 - 66 % [facility] Segs Absolute 5.74 [facility] WBC (Bld) [#/Vol] 6.6 10*3/uL [facility] Absolute Eos # 0.00 [facility] SECOUR S [facility] Absolute Immature Granulocyte 0.10 [facility] Absolute Lymph # 0.31 Low [facility] SECO URS [facility] Absolute [place] # 0.41 [facility] RS [facility] Basophils (Bld) [#/Vol] 0.00 10*3/uL [facility] Basophils/100 WBC (Bld) 0 % 0 - 2 % [facility] Eosinophils/100 WBC (Bld) 0 % Low 1 - 4 % [facility] Hematocrit (Bld) [Volume fraction] 32.4 % Low 36.3 - 47.1 % [facility] Hemoglobin (Bld) [Mass/Vol] 11.0 g/dL Low 11.9 - 15.1 g/dL [facility] Immature granulocytes/100 WBC (Bld) 1 % High 0 [facility] Interpretation and review of laboratory results Abnormal [facility] Lymphocytes/100 WBC (Bld) 3 % Low 24 - 44 % [facility] MCH (RBC) [Entitic mass] 29.4 pg 25.2 - 33.5 pg [place] MCHC (RBC) [Mass/Vol] 34.0 g/dL 28.4 - 34.8 g/dL [facility] MCV (RBC) [Entitic vol] 86.6 fL 82.6 - 102.9 fL [facility] Monocytes/100 WBC (Bld) 4 % 1 - 7 % [facility] [place] Morphology Bran (Bld) [Interp] Normal [facility] NRBC Automated 0.0 0.0 per 100 WBC [facility] Platelet distribution width (Bld) [Ratio] 13.6 % 11.8 - 14.4 % [facility] [place] Platelet mean volume (Bld) [Entitic vol] 10.4 fL 8.1 - 13.5 fL [facility] Platelets (Bld) [#/Vol] 252 10*3/uL [facility] RBC (Bld) [#/Vol] 3.74 10*6/uL Low 3.95 - 5.1 1 m/uL [facility] Segmented neutrophils/100 WBC (Bld) 92 % High 36 - 66 % [facility] Segs Absolute 9.38 High [facility] WBC (Bld) [#/Vol] 10.2 10*3/uL [facility] Absolute Eos # 0.12 [facility] Absolute Immature Granulocyte 0.12 [facility] Absolute Lymph # 0.49 Low [facility] Absolute [place] # 0.00 Low [facility] Basophils (Bld) [#/Vol] 0.00 10*3/uL [facility] Basophils/100 WBC (Bld) 0 % 0 - 2 % [facility] Eosinophils/100 WBC (Bld) 1 % 1 - 4 % [facility] Hematocrit (Bld) [Volume fraction] 31.3 % Low 36.3 - 47.1 % [facility] Hemoglobin (Bld) [Mass/Vol] 10.6 g/dL Low 11.9 - 15.1 g/dL [facility] Immature granulocytes/100 WBC (Bld) 1 % High 0 [facility] Interpretation and review of laboratory results Abnormal [facility] Lymphocytes/100 WBC (Bld) 4 % Low 24 - 44 % [facility] MCH (RBC) [Entitic mass] 29.3 pg 25.2 - 33.5 pg [facility] MCHC (RBC) [Mass/Vol] 33.9 g/dL 28.4 - 34.8 g/dL [facility] MCV (RBC) [Entitic vol] 86.5 fL 82.6 - 102.9 fL [facility] Monocytes/100 WBC (Bld) 0 % Low 1 - 7 % [facility] Morphology Bran (Bld) [Interp] Normal [facility] NRBC Automated 0.0 0.0 per 100 WBC [facility] Platelet distribution width (Bld) [Ratio] 13.5 % 11.8 - 14.4 % [facility] Platelet mean volume (Bld) [Entitic vol] 10.2 fL 8.1 - 13.5 fL [facility] Platelets (Bld) [#/Vol] 280 10*3/uL [facility] RBC (Bld) [#/Vol] 3.62 10*6/uL Low 3.95 - 5.1 1 m/uL [facility] Segmented neutrophils/100 WBC (Bld) 94 % High 36 - 66 % [facility] Segs Absolute 11.57 High [facility] WBC (Bld) [#/Vol] 12.3 10*3/uL High [facility] CBC with Diffon 07-20-2022 Abs. Basophil 0.00 k/uL Normal 0.0-0.2 [facility] Comment on above: Performed By: #### A NAX, IFX, PHEP, FKLLC, PE #### [facility] [employer] [facility] [place] [address] Food Safety Auditor: Bala Skelton MD Abs.Imm.Granulocyte 0.07 k/uL Normal 0.00-0.30 [facility] Comment on above: Performed By: #### A NAX, IFX, PHEP, FKLLC, PE #### [address] [address] Food Safety Auditor: Bala Skelton MD Abs.Neutrophil (Seg) 5.74 k/uL Normal 1.8-7.7 [facility] Comment on above: Performed By: #### A NAX, IFX, PHEP, FKLLC, PE #### [address] [address] Food Safety Auditor: Bala Skelton MD Basophils/100 WBC (Bld) 0 % Normal 0-2 [facility] Comment on above: Performed By: #### A NAX, IFX, PHEP, FKLLC, PE #### [place] [address] Food Safety Auditor: Bala Skelton MD Eosinophils (Bld) [#/Vol] 0.00 10*3/uL Normal 0.0-0.4 [facility] Comment on above: Performed By: #### A NAX, IFX, PHEP, FKLLC, PE #### [address] [address] Food Safety Auditor: Bala Skelton MD Eosinophils/100 WBC (Bld) 0 % Low 1-4 [facility] Comment on above: Performed By: #### A NAX, IFX, PHEP, FKLLC, PE #### [address] [address] Food Safety Auditor: aBla Skelton MD Immature granulocytes/100 WBC (Bld) 1 % High 0 [facility] Comment on above: Performed By: #### A NAX, IFX, PHEP, FKLLC, PE #### [address] [address] Food Safety Auditor: Bala Skelton MD Lymphocytes (Bld) [#/Vol] 0.46 10*3/uL Low 1.0-4.8 [facility] Comment on above: Performed By: #### A NAX, IFX, PHEP, FKLLC, PE #### [address] [address] Food Safety Auditor: Bala Skelton MD Lymphocytes/100 WBC (Bld) 7 % Low 24-44 [facility] Comment on above: Performed By: #### A NAX, IFX, PHEP, FKLLC, PE #### [address] [address] Food Safety Auditor: Bala Skelton MD Monocytes (Bld) [#/Vol] 0.33 10*3/uL Normal 0.1-0.8 [facility] Comment on above: Performed By: #### A NAX, IFX, PHEP, FKLLC, PE #### [address] [address] Food Safety Auditor: Bala Skelton MD Monocytes/100 WBC (Bld) 5 % Normal 1-7 [facility] Comment on above: Performed By: #### A NAX, IFX, PHEP, FKLLC, PE #### [address] [address] Food Safety Auditor: Bala Skelton MD Morphology Bran (Bld) [Interp] Normal Normal [facility] Comment on above: Performed By: #### A NAX, IFX, PHEP, FKLLC, PE #### [address] [address] Food Safety Auditor: Bala Skelton MD Neutrophil (Seg) 87 % High 36-66 [facility] Comment on above: Performed By: #### A NAX, IFX, PHEP, FKLLC, PE #### [address] [address] Food Safety Auditor: Bala Skelton MD Erythrocyte distribution width (RBC) [Ratio] 13.8 % Normal 11.8-14.4 [facility] Comment on above: Performed By: #### A NAX, IFX, PHEP, FKLLC, PE #### [address] [address] Food Safety Auditor: Bala Skelton MD Hematocrit (Bld) [Volume fraction] 33.3 % Low 36.3-47.1 [facility] Comment on above: Performed By: #### A NAX, IFX, PHEP, FKLLC, PE #### [address] [address] Food Safety Auditor: Bala Skelton MD Hemoglobin (Bld) [Mass/Vol] 11.0 g/dL Low 11.9-15.1 [facility] Comment on above: Performed By: #### A NAX, IFX, PHEP, FKLLC, PE #### [address] [address] Food Safety Auditor: Bala Skelton MD MCH (RBC) [Entitic mass] 28.6 pg Normal 25.2-33.5 [facility] Comment on above: Performed By: #### A NAX, IFX, PHEP, FKLLC, PE #### [address] [address] Food Safety Auditor: Bala Skelton MD MCHC (RBC) [Mass/Vol] 33.0 g/dL Normal 28.4-34.8 [facility] Comment on above: Performed By: #### A NAX, IFX, PHEP, FKLLC, PE #### [address] [address] Food Safety Auditor: Bala Skelton MD MCV (RBC) [Entitic vol] 86.7 fL Normal 82.6-102.9 [facility] Comment on above: Performed By: #### A NAX, IFX, PHEP, FKLLC, PE #### [address] [address] Food Safety Auditor: Bala Skelton MD NRBC Automated 0.0 per 100 WBC Normal 0.0 [facility] Comment on above: Performed By: #### A NAX, IFX, PHEP, FKLLC, PE #### [address] [address] Food Safety Auditor: Bala Skelton MD Platelet Count See Reflexed IPF Result Normal 138-453 [facility] Comment on above: Performed By: #### A NAX, IFX, PHEP, FKLLC, PE #### [address] [address] Food Safety Auditor: Bala Skelton MD RBC (Bld) [#/Vol] 3.84 10*6/uL Low 3.95-5.11 [facility] Comment on above: Performed By: #### A NAX, IFX, PHEP, FKLLC, PE #### [address] [address] Food Safety Auditor: Bala Skelton MD WBC (Bld) [#/Vol] 6.6 10*3/uL Normal 3.5-11.3 [facility] Comment on above: Performed By: #### A NAX, IFX, PHEP, FKLLC, PE #### [address] [address] Food Safety Auditor: Bala Skelton MD Abs. Basophil 0.00 k/uL Normal 0.0-0.2 [facility] Comment on above: Performed By: #### A NAX, IFX, PHEP, FKLLC, PE #### [address] [address] Food Safety Auditor: Bala Skelton MD Abs.Imm.Granulocyte 0.10 k/uL Normal 0.00-0.30 [facility] Comment on above: Performed By: #### A NAX, IFX, PHEP, FKLLC, PE #### [place] [address] Food Safety Auditor: Bala Skelton MD Abs.Neutrophil (Seg) 9.38 k/uL High 1.8-7.7 [facility] Comment on above: Performed By: #### A NAX, IFX, PHEP, FKLLC, PE #### [place] [address] Food Safety Auditor: Bala Skelton MD Basophils/100 WBC (Bld) 0 % Normal 0-2 [facility] Comment on above: Performed By: #### A NAX, IFX, PHEP, FKLLC, PE #### [place] [address] Food Safety Auditor: Bala Skelton MD Eosinophils (Bld) [#/Vol] 0.00 10*3/uL Normal 0.0-0.4 [facility] Comment on above: Performed By: #### A NAX, IFX, PHEP, FKLLC, PE #### [address] [address] Food Safety Auditor: Bala Skelton MD Eosinophils/100 WBC (Bld) 0 % Low 1-4 [facility] Comment on above: Performed By: #### A NAX, IFX, PHEP, FKLLC, PE #### [address] [address] Food Safety Auditor: Bala Skelton MD Immature granulocytes/100 WBC (Bld) 1 % High 0 [facility] Comment on above: Performed By: #### A NAX, IFX, PHEP, FKLLC, PE #### [address] [address] Food Safety Auditor: Bala Skelton MD Lymphocytes (Bld) [#/Vol] 0.31 10*3/uL Low 1.0-4.8 [facility] Comment on above: Performed By: #### A NAX, IFX, PHEP, FKLLC, PE #### [address] [address] Food Safety Auditor: Bala Skelton MD Lymphocytes/100 WBC (Bld) 3 % Low 24-44 [facility] Comment on above: Performed By: #### A NAX, IFX, PHEP, FKLLC, PE #### [address] [address] Food Safety Auditor: Bala Skelton MD Monocytes (Bld) [#/Vol] 0.41 10*3/uL Normal 0.1-0.8 [facility] Comment on above: Performed By: #### A NAX, IFX, PHEP, FKLLC, PE #### [address] [address] Food Safety Auditor: Bala Skelton MD Monocytes/100 WBC (Bld) 4 % Normal 1-7 [facility] Comment on above: Performed By: #### A NAX, IFX, PHEP, FKLLC, PE #### [address] [address] Food Safety Auditor: Bala Skelton MD Morphology Bran (Bld) [Interp] Normal Normal [facility] Comment on above: Performed By: #### A NAX, IFX, PHEP, FKLLC, PE #### [address] [address] Food Safety Auditor: Bala Skelton MD Neutrophil (Seg) 92 % High 36-66 [facility] Comment on above: Performed By: #### A NAX, IFX, PHEP, FKLLC, PE #### [facility] [employer] [address] [place] [id number] Food Safety Auditor: Bala Skelton MD Erythrocyte distribution width (RBC) [Ratio] 13.6 % Normal 11.8-14.4 [facility] Comment on above: Performed By: #### A NAX, IFX, PHEP, FKLLC, PE #### [facility] [employer] [address] [place] [address] Food Safety Auditor: Bala Skelton MD Hematocrit (Bld) [Volume fraction] 32.4 % Low 36.3-47.1 [facility] Comment on above: Performed By: #### A NAX, IFX, PHEP, FKLLC, PE #### [facility] [employer] [address] [place] [address] Food Safety Auditor: Bala Skelton MD Hemoglobin (Bld) [Mass/Vol] 11.0 g/dL Low 11.9-15.1 [facility] Comment on above: Performed By: #### A NAX, IFX, PHEP, FKLLC, PE #### [facility] [employer] [address] [place] [address] Food Safety Auditor: Bala Skelton MD MCH (RBC) [Entitic mass] 29.4 pg Normal 25.2-33.5 [facility] Comment on above: Performed By: #### A NAX, IFX, PHEP, FKLLC, PE #### [facility] [employer] [address] [place] [address] Food Safety Auditor: Bala Skelton MD MCHC (RBC) [Mass/Vol] 34.0 g/dL Normal 28.4-34.8 [facility] Comment on above: Performed By: #### A NAX, IFX, PHEP, FKLLC, PE #### [address] [address] Food Safety Auditor: Bala Skelton MD MCV (RBC) [Entitic vol] 86.6 fL Normal 82.6-102.9 [facility] Comment on above: Performed By: #### A NAX, IFX, PHEP, FKLLC, PE #### [address] [address] Food Safety Auditor: Bala Skelton MD NRBC Automated 0.0 per 100 WBC Normal 0.0 [facility] Comment on above: Performed By: #### A NAX, IFX, PHEP, FKLLC, PE #### [address] [address] Food Safety Auditor: Bala Skelton MD Platelet mean volume (Bld) [Entitic vol] 10.4 fL Normal 8.1-13.5 [facility] Comment on above: Performed By: #### A NAX, IFX, PHEP, FKLLC, PE #### [address] [address] Food Safety Auditor: Bala Skelton MD Platelets (Bld) [#/Vol] 252 10*3/uL Normal 138-453 [facility] Comment on above: Performed By: #### A NAX, IFX, PHEP, FKLLC, PE #### [address] [address] Food Safety Auditor: Bala Skelton MD RBC (Bld) [#/Vol] 3.74 10*6/uL Low 3.95-5.11 [facility] Comment on above: Performed By: #### A NAX, IFX, PHEP, FKLLC, PE #### [address] [address] Food Safety Auditor: Bala Skelton MD WBC (Bld) [#/Vol] 10.2 10*3/uL Normal 3.5-11.3 [facility] Comment on above: Performed By: #### A NAX, IFX, PHEP, FKLLC, PE #### [address] [address] Food Safety Auditor: Bala Skelton MD Abs. Basophil 0.00 k/uL Normal 0.0-0.2 [facility] Comment on above: Performed By: #### A NAX, IFX, PHEP, FKLLC, PE #### [place] [address] Food Safety Auditor: Bala Skelton MD Abs.Imm.Granulocyte 0.12 k/uL Normal 0.00-0.30 [facility] Comment on above: Performed By: #### A NAX, IFX, PHEP, FKLLC, PE #### [place] [address] Food Safety Auditor: Bala Skelton MD Abs.Neutrophil (Seg) 11.57 k/uL High 1.8-7.7 [facility] Comment on above: Performed By: #### A NAX, IFX, PHEP, FKLLC, PE #### [place] [address] Food Safety Auditor: Bala Skelton MD Basophils/100 WBC (Bld) 0 % Normal 0-2 [facility] Comment on above: Performed By: #### A NAX, IFX, PHEP, FKLLC, PE #### [address] [address] Food Safety Auditor: Bala Skelton MD Eosinophils (Bld) [#/Vol] 0.12 10*3/uL Normal 0.0-0.4 [facility] Comment on above: Performed By: #### A NAX, IFX, PHEP, FKLLC, PE #### [address] [address] Food Safety Auditor: Bala Skelton MD Eosinophils/100 WBC (Bld) 1 % Normal 1-4 [facility] Comment on above: Performed By: #### A NAX, IFX, PHEP, FKLLC, PE #### [address] [address] Food Safety Auditor: Bala Skelton MD Immature granulocytes/100 WBC (Bld) 1 % High 0 [facility] Comment on above: Performed By: #### A NAX, IFX, PHEP, FKLLC, PE #### [address] [address] Food Safety Auditor: Bala Skelton MD Lymphocytes (Bld) [#/Vol] 0.49 10*3/uL Low 1.0-4.8 [facility] Comment on above: Performed By: #### A NAX, IFX, PHEP, FKLLC, PE #### [address] [address] Food Safety Auditor: Bala Skelton MD Lymphocytes/100 WBC (Bld) 4 % Low 24-44 [facility] Comment on above: Performed By: #### A NAX, IFX, PHEP, FKLLC, PE #### [address] [address] Food Safety Auditor: Bala Skelton MD Monocytes (Bld) [#/Vol] 0.00 10*3/uL Low 0.1-0.8 [facility] Comment on above: Performed By: #### A NAX, IFX, PHEP, FKLLC, PE #### [address] [address] Food Safety Auditor: Bala Skelton MD Monocytes/100 WBC (Bld) 0 % Low 1-7 [facility] Comment on above: Performed By: #### A NAX, IFX, PHEP, FKLLC, PE #### [address] [address] Food Safety Auditor: Bala Skelton MD Morphology Bran (Bld) [Interp] Normal Normal [facility] Comment on above: Performed By: #### A NAX, IFX, PHEP, FKLLC, PE #### [address] [address] Food Safety Auditor: Bala Skelton MD Neutrophil (Seg) 94 % High 36-66 [facility] Comment on above: Performed By: #### A NAX, IFX, PHEP, FKLLC, PE #### [address] [address] Food Safety Auditor: Bala Skelton MD Erythrocyte distribution width (RBC) [Ratio] 13.5 % Normal 11.8-14.4 [facility] Comment on above: Performed By: #### A NAX, IFX, PHEP, FKLLC, PE #### [address] [address] Food Safety Auditor: Bala Skelton MD Hematocrit (Bld) [Volume fraction] 31.3 % Low 36.3-47.1 [facility] Comment on above: Performed By: #### A NAX, IFX, PHEP, FKLLC, PE #### [address] [address] Food Safety Auditor: Bala Skelton MD Hemoglobin (Bld) [Mass/Vol] 10.6 g/dL Low 11.9-15.1 [facility] Comment on above: Performed By: #### A NAX, IFX, PHEP, FKLLC, PE #### [address] [address] Food Safety Auditor: Bala Skelton MD MCH (RBC) [Entitic mass] 29.3 pg Normal 25.2-33.5 [facility] Comment on above: Performed By: #### A NAX, IFX, PHEP, FKLLC, PE #### [address] [address] Food Safety Auditor: Bala Skelton MD MCHC (RBC) [Mass/Vol] 33.9 g/dL Normal 28.4-34.8 [facility] Comment on above: Performed By: #### A NAX, IFX, PHEP, FKLLC, PE #### [place] [address] Food Safety Auditor: Bala Skelton MD MCV (RBC) [Entitic vol] 86.5 fL Normal 82.6-102.9 [facility] Comment on above: Performed By: #### A NAX, IFX, PHEP, FKLLC, PE #### [place] [address] Food Safety Auditor: Bala Skelton MD NRBC Automated 0.0 per 100 WBC Normal 0.0 [facility] Comment on above: Performed By: #### A NAX, IFX, PHEP, FKLLC, PE #### [place] [address] Food Safety Auditor: Bala Skelton MD Platelet mean volume (Bld) [Entitic vol] 10.2 fL Normal 8.1-13.5 [facility] Comment on above: Performed By: #### A NAX, IFX, PHEP, FKLLC, PE #### [address] [address] Food Safety Auditor: Bala Skelton MD Platelets (Bld) [#/Vol] 280 10*3/uL Normal 138-453 [facility] Comment on above: Performed By: #### A NAX, IFX, PHEP, FKLLC, PE #### [facility] [address] [place], [place] [phone] Food Safety Auditor: Bala Skelton MD RBC (Bld) [#/Vol] 3.62 10*6/uL Low 3.95-5.11 [facility] Comment on above: Performed By: #### A NAX, IFX, PHEP, FKLLC, PE #### [facility] [address] [place], [place] [phone] Food Safety Auditor: Bala Skelton MD WBC (Bld) [#/Vol] 12.3 10*3/uL High 3.5-11.3 [facility] Comment on above: Performed By: #### A NAX, IFX, PHEP, FKLLC, PE #### [facility] [address] [place], [place] [phone] Food Safety Auditor: Bala Skelton MD CREATININE, RANDOM URINEon 0 07-20-2022 Creatinine, Ur 67.5 mg/dL 28 - 217 mg/dL [facility] CULTURE URINEon 07-20-2022 CULTURE URINE Isolate 1 [...] F Trimethoprim/Sulfameth oxazole <=20 S F Normal [facility] Comment on above: Performed By: #### U MICRO, ERUR #### [facility] [address] [place] [address] Dr. Delmer Rea Chloride, Random Urineon Chloride, Ur 50 mmol/L [employer] Comment on above: No normal range esta blished. Chloride,Random Uron 07-20- 022 Chloride [Moles/Vol] 50 mmol/L Normal [facility] Comment on above: Result Comment: No n ormal range established. Performed By: #### A NAX, IFX, PHEP, FKLLC, PE #### [employer] [address] [place], [place] [phone] Food Safety Auditor: Bala Skelton MD Creatinine, Random Urineon 0 07-20-2022 Creatinine, Ur 76.5 mg/dL 28 - 217 mg/[facility] Creat[facility],Random Uron 07-20 Creatinine [Mass/Vol] 67.5 mg/dL Normal 28.0-217.0 [facility] Comment on above: Performed By: #### B C #### [facility] [address] [place] [address] [phone] Food Safety Auditor: Bala Skelton MD Creatinine [Mass/Vol] 76.5 mg/dL Normal 28.0-217.0 [facility] Comment on above: Performed By: #### A NAX, IFX, PHEP, FKLLC, PE #### [employer] [facility] [place], [place] [phone] Food Safety Auditor: Bala Skelton MD EKG 12 LeadOrdered By: Cheryl Domínguez on 07-20-2022 Atrial Rate 105 BPM [employer] Work Phone: P Shelby 8 degrees [employer] Work Phone: P-R Interval 136 ms [employer] Phone: Q-T Interval 344 ms [employer] Phone: QRS Duration 84 ms [employer] Phone: QTc Calculation (Bazett) 454 ms [employer] Work Phone: R Shelby -15 degrees [employer] Work Phone: T Shelby 13 degrees [employer] Phone: Ventricular Rate 105 BPM JAYDEN ONOFRE [employer] Work Phone: JAYDEN GARC[employer]. Phone: EKG 12 Leadon 07-20-2022 Sinus tachycardia Septal infarct (cited on or before 20-JUL-2022) Abnormal ECG When compared with ECG of 20-JUL-2022 05:40, No significant change was found [facility] Julien Jarrett MD - 07/20/2022 Sinus tachycardia Septal infarct (cited on or before 20-JUL-2022) Abnormal ECG When compared with ECG of 20-JUL-2022 05:40, No significant change was found [employer] Phone: Free Sumas + Lambdaon 2021 Free Sumas Lt Chains 2.91 mg/dL High 0.37-1.94 [facility] Comment on above: Performed By: #### A NAX, IFX, PHEP, FKLLC, PE #### [employer] [address] [place] [address] Food Safety Auditor: Bala Skelton MD Free Sumas/Lambda Rat 1.67 High 0.26-1.65 [facility] Comment on above: Performed By: #### A NAX, IFX, PHEP, FKLLC, PE #### [employer] [address] [place] [address] [phone] Food Safety Auditor: Bala Skelton MD Free Lambda Lt Chains 1.74 mg/dL Normal 0.57-2.63 [facility] Comment on above: Performed By: #### A NAX, IFX, PHEP, FKLLC, PE #### [employer] [address] [place] [address] Food Safety Auditor: Bala Skelton MD Immature Platelet Fractionon 07-20-2022 Platelet, Fluorescence Platelet clumps present, count appears adequate. [facility] Sumas/Lambda Quantitative Fr ee Light Chains, Serumon 07-20-2022 Free Sumas/Lambda Ratio 1.67 High 0.26 - 1.65 [facility] Interpretation and review of laboratory results Abnormal [facility] Sumas Free Light Chains QNT 2.91 mg/dL High 0.37 - 1.94 mg/dL [facility] Lambda Free Light Chains QNT 1.74 mg/dL 0.57 - 2.63 mg/dL [facility] Lactate, Sepsison 07-20-2022 Lactic Acid,Sep Wbld 3.8 mmol/L High 0.5-1.9 [facility] Comment on above: Performed By: #### B C #### [employer] [address] [place] [address] [phone] Food Safety Auditor: Bala Skelton MD Interpretation and review of laboratory results Abnormal [facility] Lactic Acid, Sepsis, Whole Blood 3.8 mmol/L High 0.5 - 1.9 mmol/L [facility] Lactic Acidon 07-20-2022 Lactic Acid,Whole Bl 2.0 mmol/L Normal 0.7-2.1 [facility] Comment on above: Performed By: #### B C #### [employer] [address] [place] [address] [phone] Food Safety Auditor: Bala Skelton MD Lactic Acid, Whole Blood 2.0 mmol/L 0.7 - 2.1 mmol/L [facility] No Panel Informationon 07-20 [facility] Interpretation and review of laboratory results Abnormal [facility] PLT, Immature Fract.on 07-20 Platelet, Fluoresc. Platelet clumps present, count appears adequate. Normal 138-453 [facility] Comment on above: Performed By: #### A NAX, IFX, PHEP, FKLLC, PE #### [employer] [facility] [place] [address] Food Safety Auditor: Bala Skelton MD POC Glucose Fingerstickon Glucose [Mass/Vol] 145 mg/dL High 65 - 105 mg/dL [facility] Interpretation and review of laboratory results Abnormal [facility] Glucose [Mass/Vol] 231 mg/dL High 65 - 105 mg/dL [facility] Interpretation and review of laboratory results Abnormal [facility] Glucose [Mass/Vol] 393 mg/dL High 65 - 105 mg/dL [facility] Interpretation and review of laboratory results Abnormal [facility] Glucose [Mass/Vol] 405 mg/dL Critically high 65 - 1 05 mg/dL [facility] Comment on above: Critical Noted Interpretation and review of laboratory results Abnormal [facility] Glucose [Mass/Vol] 375 mg/dL High 65 - 105 mg/dL [facility] Interpretation and review of laboratory results Abnormal [facility] Glucose [Mass/Vol] 415 mg/dL Critically high 65 - 1 05 mg/dL [facility] Interpretation and review of laboratory results Abnormal [facility] Procalcitoninon 07-20-2022 Procalcitonin 48.54 ng/mL High <0.09 [facility] Comment on above: Result Comment: [...] entered into the Change in Procalcitonin Calculator (www.sfbnwt-xby-wlbaalmmiy.com) to determine the patient's Mortality Risk Prognosis In healthy neonates, plasma Procalcitonin (PCT) concentrations increase gradually after , reaching peak values at about 24 hours of age then decrease to normal values below 0.5 ng/mL by 48-72 hours of age. Performed By: #### A NAX, IFX, PHEP, FKLLC, PE #### [employer] [facility] [place] [address] Food Safety Auditor: Bala Skelton MD Interpretation and review of laboratory results Abnormal [facility] Procalcitonin 48.54 ng/mL High NINF - 0.09 ng/mL [facility] Comment on above: Suspected Sepsis: <0.50 [...] entered into the Change in Procalcitonin Calculator (www.frclfb-qsz-qehnhbcjjn.[employer]) to determine the patient's Mortality Risk Prognosis In healthy neonates, plasma Procalcitonin (PCT) concentrations increase gradually after , reaching peak values at about 24 hours of age then decrease to normal values below 0.5 ng/mL by 48-72 hours of age. [facility] Prot. Electroph, Blon 2021 Protein [Mass/Vol] 6.3 g/dL Low 6.4-8.3 [facility] Comment on above: Performed By: #### A NAX, IFX, PHEP, FKLLC, PE #### [employer] [address] [place] [address] Food Safety Auditor: Bala Skelton MD Prot. Electrophoresis, Uron 07-20-2022 Type of Specimen .URINE Normal [facility] Comment on above: Performed By: #### A NAX, IFX, PHEP, FKLLC, PE #### [employer] [address] [place] [address] Food Safety Auditor: Bala Skelton MD Protein / creatinine ratio, urineon 07-20-2022 Creatinine, Ur 75.7 mg/dL 28 - 217 mg/dL [facility] Interpretation and review of laboratory results Abnormal [facility] Protein (U) [Mass/Vol] 145 mg/dL [facility] Comment on above: No normal range esta blished. Urine Total Protein Creatinine Ratio 1.92 High 0 - 0.2 [facility] Protein, urine, randomon Protein (U) [Mass/Vol] 144 mg/dL [facility] Comment on above: No normal range esta blished. Protein,Tot,[place] Uron 2021 Creatinine [Mass/Vol] 75.7 mg/dL Normal 28.0-217.0 [facility] Comment on above: Performed By: #### A NAX, IFX, PHEP, FKLLC, PE #### [employer] [address] [place] [address] Food Safety Auditor: Bala Skelton MD Tot Prot. Conc. 145 mg/dL Normal [facility] Comment on above: Result Comment: No n ormal range established. Performed By: #### A NAX, IFX, PHEP, FKLLC, PE #### [employer] [address] [place] [address] Food Safety Auditor: Bala Skelton MD Tot Prot. Conc. 144 mg/dL Normal [facility] Comment on above: Result Comment: No n ormal range established. Performed By: #### A NAX, IFX, PHEP, FKLLC, PE #### [employer] [address] [place] [address] Food Safety Auditor: Bala Skelton MD TP/Cre Ratio 1.92 High 0.00-0.20 [facility] Comment on above: Performed By: #### A NAX, IFX, PHEP, FKLLC, PE #### [employer] [address] [place] [address] [phone] Food Safety Auditor: Bala Skelton MD SODIUM, URINE, RANDOMon 07-07 Sodium (U) [Moles/Vol] mmol/L mmol/L [facility] Comment on above: No normal range esta blished. [facility] Sodium, Random Uron 07-20-20 22 Na Conc. Urine <20 Normal [facility] Comment on above: Result Comment: No n ormal range established. Performed By: #### B C #### [facility] [employer] [address] [place] [address] [phone] Food Safety Auditor: Bala Skelton MD Sodium (U) [Moles/Vol] 26 mmol/L Normal [facility] Comment on above: Result Comment: No n ormal range established. Performed By: #### A NAX, IFX, PHEP, FKLLC, PE #### [facility] [address] [place] [address] [phone] Food Safety Auditor: Bala Skelton MD Sodium, urine, randomon 07-07 Sodium (U) [Moles/Vol] 26 mmol/L [facility] [employer] Comment on above: No normal range esta [...] Femi Enamorado MD 07/20/22 Final result Normal [facility] 1. Possible nephrostomy at the lower pole left kidney. Correlate with any recent instrumentation. 2. Equivocal dilatation of the upper pole left kidney. No overt hydronephrosis. 3. 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 RECOMMENDATIONS: Unavailable [facility] EXAMINATION: ULTRASOUND OF THE KIDNEYS 07/20/2022 [...] nephrostomy at the lower pole left kidney. [facility] Femi Enamorado MD - 07/20/2022 EXAMINATION: [...] involving the left renal hilum. RECOMMENDATIONS: Unavailable [facility] [employer] Phone: Radiology Study observation (narrative) [facility] [employer] Phone: US RETROPERITONEAL LIMITEDOr dered By: Femi Enamorado on 07-20-2022 [facility] RECESS. Phone: Urinalysis w/ Microon 2021 Epithelial cells LM Ql (Urine sed) 0 TO 2 Normal 0-5 [facility] Comment on above: Performed By: #### A NAX, IFX, PHEP, FKLLC, PE #### [place] [address] Food Safety Auditor: Bala Skelton MD Urine RBC's TOO NUMEROUS TO COUNT Normal 0-2 [facility] Comment on above: Performed By: #### A NAX, IFX, PHEP, FKLLC, PE #### [facility] [employer] [address] [place] [phone] Food Safety Auditor: Bala Skelton MD Urine WBC's 10 TO 20 Normal 0-5 [facility] Comment on above: Performed By: #### A NAX, IFX, PHEP, FKLLC, PE #### [facility] [employer] [address] [place] [address] [phone] Food Safety Auditor: Bala Skelton MD Bilirubin, SemiQt,Ur Negative Normal NEG [facility] Comment on above: Performed By: #### A NAX, IFX, PHEP, FKLLC, PE #### [facility] [employer] [address] [place] [address] Food Safety Auditor: Bala Skelton MD Blood, Urine LARGE Abnormal NEG [facility] Comment on above: Performed By: #### A NAX, IFX, PHEP, FKLLC, PE #### [facility] [employer] [address] [place] [address] Food Safety Auditor: Bala Skelton MD Clarity (U) Cloudy Abnormal CLEAR [facility] Comment on above: Performed By: #### A NAX, IFX, PHEP, FKLLC, PE #### [facility] [employer] [address] [place] [address] Food Safety Auditor: Bala Skelton MD Color (U) Nunn Abnormal YEL [facility] Comment on above: Result Comment: INTE RPRET WITH CAUTION DUE TO INTENSE COLOR OF URINE. Performed By: #### A NAX, IFX, PHEP, FKLLC, PE #### [address] [address] Food Safety Auditor: Bala Skelton MD Glucose Ql (U) 3+ Abnormal NEG [facility] Comment on above: Performed By: #### A NAX, IFX, PHEP, FKLLC, PE #### [facility] [employer] [address] [place] [address] Food Safety Auditor: Bala Skelton MD Ketones Ql (U) Negative Normal NEG [facility] Comment on above: Performed By: #### A NAX, IFX, PHEP, FKLLC, PE #### [facility] [employer] [address] [place] [phone] Food Safety Auditor: Bala Skelton MD Leukocyte esterase Test strip Ql (U) MODERATE Abnormal NEG [facility] Comment on above: Performed By: #### A NAX, IFX, PHEP, FKLLC, PE #### [address] [address] Food Safety Auditor: Bala Skelton MD Nitrite,Ur Negative Normal NEG [facility] Comment on above: Performed By: #### A NAX, IFX, PHEP, FKLLC, PE #### [facility] [address] [place] [address] Food Safety Auditor: Bala Skelton MD PH,Ur 5.0 Normal 5.0-8.0 [facility] Comment on above: Performed By: #### A NAX, IFX, PHEP, FKLLC, PE #### [address] [address] Food Safety Auditor: Bala Skelton MD Protein Ql (U) 2+ Abnormal NEG [facility] Comment on above: Performed By: #### A NAX, IFX, PHEP, FKLLC, PE #### [address] [address] Food Safety Auditor: Bala Skelton MD Spec. [place],Ur 1.022 Normal 1.005-1.030 [facility] Comment on above: Performed By: #### A NAX, IFX, PHEP, FKLLC, PE #### [address] [address] Food Safety Auditor: Bala Skelton MD Urobilinogen,Ur Normal Normal NORM [facility] Comment on above: Performed By: #### A NAX, IFX, PHEP, FKLLC, PE #### [address] [address] Food Safety Auditor: Bala Skelton MD Urinalysis with Microscopico n 07-20-2022 Bilirubin Urine Negative NEGATIVE [facility] Color, UA [place] Abnormal Yellow [facility] Comment on above: INTERPRET WITH CAUTI ON DUE TO INTENSE COLOR OF URINE. Epithelial Cells UA 0 TO [address] [facility] Glucose, Ur 3+ Abnormal NEGATIVE [facility] Interpretation and review of laboratory results Abnormal [facility] Ketones Ql (U) Negative NEGATIVE [facility] Leukocyte esterase Test strip Ql (U) MODERATE Abnormal NEGATIVE [facility] Nitrite, Urine Negative NEGATIVE [facility] pH, UA 5.0 5 - 8 [facility] Protein, UA 2+ Abnormal NEGATIVE [facility] RBC, UA TOO NUMEROUS TO COUNT [facility] Specific [place], UA 1.022 1.005 - 1.03 [facility] Turbidity UA Cloudy Abnormal Clear [facility] Urine Hgb LARGE Abnormal NEGATIVE [facility] Urobilinogen, Urine Normal Normal [facility] WBC, UA 10 TO 20 [facility] Venous Blood Gaseson 022 Body Temp. 37.0 Normal [facility] [facility] Comment on above: Performed By: #### V BG #### [facility] [address] [place] [address] Food Safety Auditor: Bala Skelton MD Carboxy Hgb 1.4 % Normal 0-5 [facility] Comment on above: Result Comment: Reference Range: Non-Smokers 0-2% Average Smoker 2-4% Heavy Smoker <10% Performed By: #### V BG #### [address] [address] Food Safety Auditor: Bala Skelton MD FIO2 INFORMATION NOT PROVIDED Normal [facility] Comment on above: Performed By: #### V BG #### [facility] [address] [place] [address] Food Safety Auditor: Bala Skelton MD HCO3 (Bld) [Moles/Vol] 19.6 mmol/L Low 24-30 [facility] Comment on above: Performed By: #### V BG #### [facility] [employer] [address] [place] [address] [phone] Food Safety Auditor: Bala Skelton MD Negative Base Excess 5.6 mmol/L High 0.0-2.0 [facility] Comment on above: Performed By: #### V BG #### [address] [address] Food Safety Auditor: Bala Skelton MD Oxygen (Bld) [Partial pressure] 36.9 mm[Hg] Normal 30-50 [facility] Comment on above: Performed By: #### V BG #### [address] [address] Food Safety Auditor: Bala Skelton MD Oxygen saturation in Blood 74.4 % Normal 60.0-85.0 [facility] Comment on above: Performed By: #### V BG #### [address] [address] Food Safety Auditor: Bala Skelton MD pCO2 39.5 Normal 39-55 [facility] Comment on above: Performed By: #### V BG #### [address] [address] Food Safety Auditor: Bala Skelton MD pH (Bld) 7.316 [pH] Low 7.320-7.420 [facility] Comment on above: Performed By: #### V BG #### [address] [address] Food Safety Auditor: Bala Skelton MD XR CHEST PORTABLEon 07-20-20 [...] Ricarda Orozco DO 07/20/22 Final result Normal [facility] 1. Mild vascular congestion. 2. [...] related to atelectasis. No dense airspace consolidation. [employer] Phone: Radiology Study observation (narrative) [employer] Phone: XR CHEST PORTABLEOrdered By: Ricarda Orozco on 07-20-2022 [facility] [employer] Phone: Basic Metab w/rfx MGon 07-19 (cont.) Normal [facility] Comment on above: Result Comment: Aver age GFR for 50-59 years old: 93 mL/min/1.73sq m Chronic Kidney Disease: <60 mL/min/1.73sq m Kidney failure: <15 mL/min/1.73sq m eGFR calculated using average adult body mass. Additional eGFR calculator available at: http://www.[employer].com/multiple_crcl_2012.htm Performed By: #### B MPX, CDP #### [facility] [address] [place] [address] Food Safety Auditor: Bala Skelton MD Anion gap [Moles/Vol] 14 mmol/L Normal 9-17 [facility] Comment on above: Performed By: #### B MPX, CDP #### [facility] [address] [place] [address] Food Safety Auditor: Bala Skelton MD Calcium [Mass/Vol] 8.3 mg/dL Low 8.6-10.4 [facility] Comment on above: Performed By: #### B MPX, CDP #### [facility] [address] [place] [address] Food Safety Auditor: Bala Skelton MD Chloride [Moles/Vol] 98 mmol/L Normal 98-107 [facility] Comment on above: Performed By: #### B MPX, CDP #### [facility] [address] [place] [address] Food Safety Auditor: Bala Skelton MD CO2 [Moles/Vol] 19 mmol/L Low 20-31 [facility] Comment on above: Performed By: #### B MPX, CDP #### [facility] [address] [place] [address] Food Safety Auditor: Bala Skelton MD Creatinine [Mass/Vol] 1.71 mg/dL High 0.50-0.90 [facility] Comment on above: Performed By: #### B MPX, CDP #### [facility] [address] [place] [address] Food Safety Auditor: Bala Skelton MD GFR, Amer 38 mL/min Low >60 [facility] Comment on above: Performed By: #### B MPX, CDP #### [facility] [address] [place] [address] Food Safety Auditor: Bala Skelton MD GFR,non Amer 32 mL/min Low >60 [facility] Comment on above: Performed By: #### B MPX, CDP #### [facility] [address] [place] [address] Food Safety Auditor: Bala Skelton MD Glucose [Mass/Vol] 263 mg/dL High 70-99 [facility] Comment on above: Performed By: #### B MPX, CDP #### [facility] [address] [place] [address] Food Safety Auditor: Bala Skelton MD Potassium [Moles/Vol] 4.0 mmol/L Normal 3.7-5.3 [facility] Comment on above: Performed By: #### B MPX, CDP #### [facility] [address] [place] [address]281 Food Safety Auditor: Bala Skelton MD Sodium [Moles/Vol] 131 mmol/L Low 135-144 [facility] Comment on above: Performed By: #### B MPX, CDP #### [facility] [address] [place] [address] Food Safety Auditor: Bala Skelton MD Urea nitrogen [Mass/Vol] 38 mg/dL High 6-20 [facility] Comment on above: Performed By: #### B MPX, CDP #### [facility] [address] [place] [address] Food Safety Auditor: Bala Skelotn MD Basic Metabolic Panel w/ Ref romulo to MGon 07-19-2022 Anion gap [Moles/Vol] 14 mmol/L 9 - 17 mmol/L [facility] Calcium [Mass/Vol] 8.3 mg/dL Low 8.6 - 10. 4 mg/dL [facility] Chloride [Moles/Vol] 98 mmol/L 98 - 10 7 mmol/L [facility] CO2 [Moles/Vol] 19 mmol/L Low 20 - 31 mmol/L [facility] Creatinine [Mass/Vol] 1.71 mg/dL High 0.5 - 0.9 mg/dL [facility] GFR 38 mL/min Low 60 - PI NF mL/min [facility] GFR Non- 32 mL/min Low 60 - PINF mL/min [facility] GFR/1.73 sq M.predicted MDRD (S/P/Bld) [Vol rate/Area] [facility] Comment on above: Average GFR for 50-5 9 years old: 93 mL/min/1.73sq m Chronic Kidney Disease: <60 mL/min/1.73sq m Kidney failure: <15 mL/min/1.73sq m eGFR calculated using average adult body mass. Additional eGFR calculator available at: http://www.[employer]multiple_crcl_2012.htm Glucose [Mass/Vol] 263 mg/dL High 70 - 99 mg/dL [facility] Interpretation and review of laboratory results Abnormal [facility] Potassium [Moles/Vol] 4.0 mmol/L 3.7 - 5.3 mmol/L [facility] Sodium [Moles/Vol] 131 mmol/L Low 135 - 144 mmol/L [facility] Urea nitrogen (BldV) [Mass/Vol] 38 mg/dL High 6 - 20 mg/dL [facility] CBC with Auto Differentialon 07-19-2022 Absolute Eos # 0.16 [facility] Absolute Immature Granulocyte 0.05 [facility] Absolute Lymph # 2.34 [facility] Absolute Stafford # 0.64 [facility] Basophils (Bld) [#/Vol] 0.03 10*3/uL [facility] Basophils/100 WBC (Bld) 0 % 0 - 2 % [facility] Eosinophils/100 WBC (Bld) 2 % 1 - 4 % [facility] Hematocrit (Bld) [Volume fraction] 30.2 % Low 36.3 - 47.1 % [facility] Hemoglobin (Bld) [Mass/Vol] 10.4 g/dL Low 11.9 - 15.1 g/dL [facility] Immature granulocytes/100 WBC (Bld) 1 % High 0 [facility] Interpretation and review of laboratory results Abnormal [facility] Lymphocytes/100 WBC (Bld) 33 % 24 - 43 % [facility] MCH (RBC) [Entitic mass] 29.7 pg 25.2 - 33.5 pg [facility] MCHC (RBC) [Mass/Vol] 34.4 g/dL 28.4 - 34.8 g/dL [facility] MCV (RBC) [Entitic vol] 86.3 fL 82.6 - 102.9 fL [facility] Monocytes/100 WBC (Bld) 9 % 3 - 12 % [facility] NRBC Automated 0.0 0.0 per 100 WBC [facility] Platelet distribution width (Bld) [Ratio] 13.6 % 11.8 - 14.4 % [facility] Platelet mean volume (Bld) [Entitic vol] 11.2 fL 8.1 - 13.5 fL [facility] Platelets (Bld) [#/Vol] 410 10*3/uL [facility] RBC (Bld) [#/Vol] 3.50 10*6/uL Low 3.95 - 5.1 1 m/uL [facility] Segmented neutrophils/100 WBC (Bld) 54 % 36 - 65 % [facility] Segs Absolute 3.83 [facility] WBC (Bld) [#/Vol] 7.1 10*3/uL [facility] CBC with Diffon 07-19-2022 Abs. Basophil 0.03 k/uL Normal 0.00-0.20 [facility] Comment on above: Performed By: #### B STEPHENIEX CDP #### [employer] [address] [place] [address] Food Safety Auditor: Bala Skelton MD Abs.Imm.Granulocyte 0.05 k/uL Normal 0.00-0.30 [facility] Comment on above: Performed By: #### B STEPHENIEX, CDP #### [address] [address] Food Safety Auditor: Bala Skelton MD Abs.Neutrophil (Seg) 3.83 k/uL Normal 1.50-8.10 [facility] Comment on above: Performed By: #### B MPX, CDP #### [address] [address] Food Safety Auditor: Bala Skelton MD Basophils/100 WBC (Bld) 0 % Normal 0-2 [facility] Comment on above: Performed By: #### B MPX, CDP #### [address] [address] Food Safety Auditor: Bala Skelton MD Eosinophils (Bld) [#/Vol] 0.16 10*3/uL Normal 0.00-0.44 [facility] Comment on above: Performed By: #### B MPX, CDP #### [address] [address] Food Safety Auditor: Bala Skelton MD Eosinophils/100 WBC (Bld) 2 % Normal 1-4 [facility] Comment on above: Performed By: #### B MPX, CDP #### [address] [address] Food Safety Auditor: Bala Skelton MD Erythrocyte distribution width (RBC) [Ratio] 13.6 % Normal 11.8-14.4 [facility] Comment on above: Performed By: #### B MPX, CDP #### [address] [address] Food Safety Auditor: Bala Skelton MD Hematocrit (Bld) [Volume fraction] 30.2 % Low 36.3-47.1 [facility] Comment on above: Performed By: #### B MPX, CDP #### [address] [address] Food Safety Auditor: Bala Skelton MD Hemoglobin (Bld) [Mass/Vol] 10.4 g/dL Low 11.9-15.1 [facility] Comment on above: Performed By: #### B MPX, CDP #### [address] [address] Food Safety Auditor: Bala Skelton MD Immature granulocytes/100 WBC (Bld) 1 % High 0 [facility] Comment on above: Performed By: #### B MPX, CDP #### [address] [address] Food Safety Auditor: Bala Skelton MD Lymphocytes (Bld) [#/Vol] 2.34 10*3/uL Normal 1.10-3.70 [facility] Comment on above: Performed By: #### B MPX, CDP #### [address] [address] Food Safety Auditor: Bala Skelton MD Lymphocytes/100 WBC (Bld) 33 % Normal 24-43 [facility] Comment on above: Performed By: #### B MPX, CDP #### [address] [address] Food Safety Auditor: Bala Skelton MD MCH (RBC) [Entitic mass] 29.7 pg Normal 25.2-33.5 [facility] Comment on above: Performed By: #### B MPX, CDP #### [address] [address] Food Safety Auditor: Bala Skelton MD MCHC (RBC) [Mass/Vol] 34.4 g/dL Normal 28.4-34.8 [facility] Comment on above: Performed By: #### B MPX, CDP #### [address] [address] Food Safety Auditor: Bala Skelton MD MCV (RBC) [Entitic vol] 86.3 fL Normal 82.6-102.9 [facility] Comment on above: Performed By: #### B MPX, CDP #### [address] [address] Food Safety Auditor: Bala Skelton MD Monocytes (Bld) [#/Vol] 0.64 10*3/uL Normal 0.10-1.20 [facility] Comment on above: Performed By: #### B MPX, CDP #### [address] [address] Food Safety Auditor: Bala Skelton MD Monocytes/100 WBC (Bld) 9 % Normal 3-12 [facility] Comment on above: Performed By: #### B MPX, CDP #### [address] [address] Food Safety Auditor: Bala Skelton MD Neutrophil (Seg) 54 % Normal 36-65 [facility] Comment on above: Performed By: #### B MPX, CDP #### [address] [address] Food Safety Auditor: Bala Skelton MD NRBC Automated 0.0 per 100 WBC Normal 0.0 [facility] Comment on above: Performed By: #### B MPX, CDP #### [address] [address] Food Safety Auditor: Bala Skelton MD Platelet mean volume (Bld) [Entitic vol] 11.2 fL Normal 8.1-13.5 [facility] Comment on above: Performed By: #### B MPX, CDP #### [address] [address] Food Safety Auditor: Bala Skelton MD Platelets (Bld) [#/Vol] 410 10*3/uL Normal 138-453 [facility] Comment on above: Performed By: #### B MPX, CDP #### [facility] [address] [place] [address] Food Safety Auditor: Bala Skelton MD RBC (Bld) [#/Vol] 3.50 10*6/uL Low 3.95-5.11 [facility] Comment on above: Performed By: #### B MPX, CDP #### [facility] [place] [address] Food Safety Auditor: Bala Skelton MD WBC (Bld) [#/Vol] 7.1 10*3/uL Normal 3.5-11.3 [facility] Comment on above: Performed By: #### B MPX, CDP #### [facility] [address] [place] [address] Food Safety Auditor: Bala Skelton MD Cult,Urineon 07-19-2022 Cult,Urine Specimen Description .CLEAN CATCH URINE Culture NO SIGNIFICANT GROWTH Report Status FINAL 07/19/2022 Normal [facility] Comment on above: Performed By: #### A NAX, IFX, PHEP, FKLLC, PE #### [facility] [employer] [address] [place] [address] Food Safety Auditor: Bala Skelton MD Culture, Urineon 07-19-2022 Bacteria identified Cx Nom (U) NO SIGNIFICANT GROWTH [facility] Specimen Description .CLEAN CATCH URINE [facility] hetras [facility] hetras IR GUIDED NEPHROSTOMY CATH P LACEMENT LEFTon [...] the procedure including risks, benefits, and alternatives. [place] protocol was followed. The patient's flank was [...] into the urinary bladder using a 4 Nepalese Kumpe the catheter; the Glidewire was exchanged [...] puncture of the lower pole calyx, 4 Nepalese Kumpe the catheter manipulation and glidewire extension into the urinary bladder. Subsequent images show the nephroureteral stent in satisfactory position. IMPRESSION: Successful percutaneous left nephroureteral stent placement via lower pole, past a large staghorn calculus, with distal pigtail tip position in the urinary bladder, as above. Findings were discussed with KASH CLAY at 4:09 pm on 07/19/2022. [employer] Phone: Radiology Study observation (narrative) [employer] Phone: IR GUIDED NEPHROSTOMY CATH P LACEMENT LEFTOrdered By: Noman Mullen on 07-19-2022 [facility] Work Phone: POC Glucose Fingerstickon Glucose [Mass/Vol] 278 mg/dL High 65 - 105 mg/dL [facility] Interpretation and review of laboratory results Abnormal [facility] Glucose [Mass/Vol] 231 mg/dL High 65 - 105 mg/dL [facility] Interpretation and review of laboratory results Abnormal [facility] Glucose [Mass/Vol] 301 mg/dL High 65 - 105 mg/dL [facility] Interpretation and review of laboratory results Abnormal [facility] Glucose [Mass/Vol] 283 mg/dL High 65 - 105 mg/dL [facility] Interpretation and review of laboratory results Abnormal [facility] PTon 07-19-2022 INR Coag (PPP) [Relative time] 0.9 {INR} Normal [facility] Comment on above: Result Comment: Therapeutic Range: Moderate Anticoagulant Intensity: INR = 2.0-3.0 High Anticoagulant Intensity: INR = 2.5-3.5 Performed By: #### A NAX, IFX, PHEP, FKLLC, PE #### [employer] [address] [place], [place] [id number] Food Safety Auditor: Bala Skelton MD PT Coag (PPP) [Time] 9.8 s Normal 9.1-12.3 [facility] Comment on above: Performed By: #### A NAX, IFX, PHEP, FKLLC, PE #### [facility] [address] [place] [address] Food Safety Auditor: Bala Skelton MD Protime-INRon 07-19-2022 INR Coag (Bld) [Relative time] 0.9 {INR} [facility] Comment on above: Therapeutic Range: Moderate Anticoagulant Intensity: INR = 2.0-3.0 High Anticoagulant Intensity: INR = 2.5-3.5 PT Coag (PPP) [Time] 9.8 s [facility] Urinalysis w/ Microon 2021 Bilirubin, SemiQt,Ur Negative Normal NEG [facility] Comment on above: Performed By: #### A NAX, IFX, PHEP, FKLLC, PE #### [address] [address] Food Safety Auditor: Bala Skelton MD Blood, Urine LARGE Abnormal NEG [facility] Comment on above: Performed By: #### A NAX, IFX, PHEP, FKLLC, PE #### [address] [address] Food Safety Auditor: Bala Skelton MD Casts 2 TO 5 HYALINE Normal 0-8 [facility] Comment on above: Result Comment: Refe rence range defined for non-centrifuged specimen. Performed By: #### A NAX, IFX, PHEP, FKLLC, PE #### [address] [address] Food Safety Auditor: Bala Skelton MD Clarity (U) Turbid Abnormal CLEAR [facility] Comment on above: Performed By: #### A NAX, IFX, PHEP, FKLLC, PE #### [address] [phone] Food Safety Auditor: Bala Skelton MD Color (U) Yellow Normal YEL [facility] Comment on above: Performed By: #### A NAX, IFX, PHEP, FKLLC, PE #### [address] [phone] Food Safety Auditor: Bala Skelton MD Epithelial cells LM Ql (Urine sed) 0 TO 2 Normal 0-5 [facility] Comment on above: Performed By: #### A NAX, IFX, PHEP, FKLLC, PE #### [facility] [employer] [address] [place] [address] Food Safety Auditor: Bala Skelton MD Glucose Ql (U) 1+ Abnormal NEG [facility] Comment on above: Performed By: #### A NAX, IFX, PHEP, FKLLC, PE #### [facility] [employer] [address] [place] [address] Food Safety Auditor: Bala Skelton MD Ketones Ql (U) Negative Normal NEG [facility] Comment on above: Performed By: #### A NAX, IFX, PHEP, FKLLC, PE #### [facility] [employer] [address] [place] [address] Food Safety Auditor: Bala Skelton MD Leukocyte esterase Test strip Ql (U) LARGE Abnormal NEG [facility] Comment on above: Performed By: #### A NAX, IFX, PHEP, FKLLC, PE #### [facility] [employer] [address] [place] [address] Food Safety Auditor: Bala Skelton MD Nitrite,Ur Negative Normal NEG [facility] Comment on above: Performed By: #### A NAX, IFX, PHEP, FKLLC, PE #### [facility] [employer] [address] [place] [address] Food Safety Auditor: Bala Skelton MD PH,Ur 5.0 Normal 5.0-8.0 [facility] Comment on above: Performed By: #### A NAX, IFX, PHEP, FKLLC, PE #### [facility] [employer] [address] [place] [address] Food Safety Auditor: Bala Skelton MD Protein Ql (U) 1+ Abnormal NEG [facility] Comment on above: Performed By: #### A NAX, IFX, PHEP, FKLLC, PE #### [facility] [address] [place] [address] Food Safety Auditor: Bala Skelton MD Spec. [place],Ur 1.017 Normal 1.005-1.030 [facility] Comment on above: Performed By: #### A NAX, IFX, PHEP, FKLLC, PE #### [facility] [address] [place] [address] Food Safety Auditor: Bala Skelton MD Urine RBC's 10 TO 20 Normal 0-4 [facility] Comment on above: Result Comment: Refe rence range defined for non-centrifuged specimen. Performed By: #### A NAX, IFX, PHEP, FKLLC, PE #### [facility] [employer] [address] [place] [address] Food Safety Auditor: Bala Skelton MD Urine WBC's TOO NUMEROUS TO COUNT Normal 0-5 [facility] Comment on above: Performed By: #### A NAX, IFX, PHEP, FKLLC, PE #### [facility] [address] [place] [address] Food Safety Auditor: Bala Skelton MD Urobilinogen,Ur Normal Normal NORM [facility] Comment on above: Performed By: #### A NAX, IFX, PHEP, FKLLC, PE #### [address] [address] Food Safety Auditor: Bala Skelton MD Urinalysis with Microscopico n 07-19-2022 Bilirubin Urine Negative NEGATIVE [facility] Casts UA 2 TO 5 HYALINE Reference range defined for non-centrifuged specimen. [facility] Color, UA Yellow Yellow [facility] Epithelial Cells UA 0 TO 2 [facility] Glucose, Ur 1+ Abnormal NEGATIVE [facility] Interpretation and review of laboratory results Abnormal [facility] Ketones Ql (U) Negative NEGATIVE [facility] Leukocyte esterase Test strip Ql (U) LARGE Abnormal NEGATIVE [facility] Nitrite, Urine Negative NEGATIVE [facility] pH, UA 5.0 5 - 8 [facility] Protein, UA 1+ Abnormal NEGATIVE [facility] RBC, UA 10 TO 20 [facility] Comment on above: Reference range defi rodger for non-centrifuged specimen. Specific [place], UA 1.017 1.005 - 1.03 [facility] Turbidity UA Turbid Abnormal Clear [facility] Urine Hgb LARGE Abnormal NEGATIVE [facility] Urobilinogen, Urine Normal Normal [facility] WBC, UA TOO NUMEROUS TO COUNT [facility] APTTon 07-18-2022 aPTT Coag (Bld) [Time] 22.8 s Normal 20.5-30.5 [facility] Comment on above: Result Comment: IV Heparin Therapy Range: 48.6-77.8 Performed By: #### A NAX, IFX, PHEP, FKLLC, PE #### [employer] [address] [place] [address] Food Safety Auditor: Bala Skelton MD aPTT Coag (Bld) [Time] 22.8 s [facility] Comment on above: IV Heparin Therapy Range: 48.6-77.8 Basic Metab w/rfx MGon 07-18 (cont.) Normal [facility] Comment on above: Result Comment: Aver age GFR for 50-59 years old: 93 mL/min/1.73sq m Chronic Kidney Disease: <60 mL/min/1.73sq m Kidney failure: <15 mL/min/1.73sq m eGFR calculated using average adult body mass. Additional eGFR calculator available at: http://www.[employer]/multiple_crcl_2012.htm Performed By: #### A NAX, IFX, PHEP, FKLLC, PE #### [employer] [facility] [place] [address] Food Safety Auditor: Bala Skelton MD Anion gap [Moles/Vol] 13 mmol/L Normal 9-17 [facility] Comment on above: Performed By: #### A NAX, IFX, PHEP, FKLLC, PE #### [facility] [address] [place] [address] Food Safety Auditor: Bala Skelton MD Calcium [Mass/Vol] 9.4 mg/dL Normal 8.6-10.4 [facility] Comment on above: Performed By: #### A NAX, IFX, PHEP, FKLLC, PE #### [address] [address] Food Safety Auditor: Bala Skelton MD Chloride [Moles/Vol] 100 mmol/L Normal 98-107 [facility] Comment on above: Performed By: #### A NAX, IFX, PHEP, FKLLC, PE #### [address] [address] Food Safety Auditor: Bala Skelton MD CO2 [Moles/Vol] 24 mmol/L Normal 20-31 [facility] Comment on above: Performed By: #### A NAX, IFX, PHEP, FKLLC, PE #### [address] [address] Food Safety Auditor: Bala Skelton MD Creatinine [Mass/Vol] 1.65 mg/dL High 0.50-0.90 [facility] Comment on above: Performed By: #### A NAX, IFX, PHEP, FKLLC, PE #### [address] [address] Food Safety Auditor: Bala Skelton MD GFR, Amer 40 mL/min Low >60 [facility] Comment on above: Performed By: #### A NAX, IFX, PHEP, FKLLC, PE #### [facility] [address] [place] [address] Food Safety Auditor: Bala Skelton MD GFR,non Amer 33 mL/min Low >60 [facility] Comment on above: Performed By: #### A NAX, IFX, PHEP, FKLLC, PE #### [facility] [employer] [address] [place] [address] [id number] Food Safety Auditor: Bala Skelton MD Glucose [Mass/Vol] 239 mg/dL High 70-99 [facility] Comment on above: Performed By: #### A NAX, IFX, PHEP, FKLLC, PE #### [facility] [address] [place] [address] [phone] Food Safety Auditor: Bala Skelton MD Potassium [Moles/Vol] 4.9 mmol/L Normal 3.7-5.3 [facility] Comment on above: Performed By: #### A NAX, IFX, PHEP, FKLLC, PE #### [address] [address] Food Safety Auditor: Bala Skelton MD Sodium [Moles/Vol] 137 mmol/L Normal 135-144 [facility] Comment on above: Performed By: #### A NAX, IFX, PHEP, FKLLC, PE #### [facility] [address] [place] [id number] Food Safety Auditor: Bala Skelton MD Urea nitrogen [Mass/Vol] 33 mg/dL High 6-20 [facility] Comment on above: Performed By: #### A NAX, IFX, PHEP, FKLLC, PE #### [facility] [address] [place] [phone] Food Safety Auditor: Bala Skelton MD Basic Metabolic Panel w/ Ref romulo to MGon 07-18-2022 Anion gap [Moles/Vol] 13 mmol/L 9 - 17 mmol/L [facility] Calcium [Mass/Vol] 9.4 mg/dL 8.6 - 10. 4 mg/dL [facility] Chloride [Moles/Vol] 100 mmol/L 98 - 10 7 mmol/L [facility] CO2 [Moles/Vol] 24 mmol/L 20 - 31 mmol/L [facility] Creatinine [Mass/Vol] 1.65 mg/dL High 0.5 - 0.9 mg/dL [facility] GFR 40 mL/min Low 60 - PI NF mL/min [facility] GFR Non- 33 mL/min Low 60 - PINF mL/min [facility] GFR/1.73 sq M.predicted MDRD (S/P/Bld) [Vol rate/Area] [facility] Comment on above: Average GFR for 50-5 9 years old: 93 mL/min/1.73sq m Chronic Kidney Disease: <60 mL/min/1.73sq m Kidney failure: <15 mL/min/1.73sq m eGFR calculated using average adult body mass. Additional eGFR calculator available at: http://www.[employer]multiple_crcl_2011.htm Glucose [Mass/Vol] 239 mg/dL High 70 - 99 mg/dL [facility] Interpretation and review of laboratory results Abnormal [facility] Potassium [Moles/Vol] 4.9 mmol/L 3.7 - 5.3 mmol/L [facility] Sodium [Moles/Vol] 137 mmol/L 135 - 144 mmol/L [facility] Urea nitrogen (BldV) [Mass/Vol] 33 mg/dL High 6 - 20 mg/dL [facility] CBC AUTO DIFFon 07-18-2022 BASO # 0.0 103/ul Normal 0.0-0.1 [facility] Comment on above: Performed By: #### C BC #### [facility] [address] [place], [place] [address] Dr. Delmer Rea Basophils/100 WBC (Bld) 0.2 % Normal 0.2-2.0 [facility] Comment on above: Performed By: #### C BC #### [facility] [address] [place], [place] [address] Dr. Delmer Rea EO # 0.1 103/ul Normal 0.0-0.7 [facility] Comment on above: Performed By: #### C BC #### [facility] [address] [address] [address] Delmer Rea Eosinophils/100 WBC (Bld) 0.7 % Critically low 0.9-7.0 [facility] Comment on above: Performed By: #### C BC #### [facility] [address] [address] [address] Delmer Rea Erythrocyte distribution width (RBC) [Ratio] 13.1 % Normal 11.0-15.0 [facility] Comment on above: Performed By: #### C BC #### [facility] [address] [place] [address] Dr. Delmer Rea Hematocrit (Bld) [Volume fraction] 36.9 % Normal 36.0-48.0 [facility] Comment on above: Performed By: #### C BC #### [facility] [address] [place] [address] Dr. Delmer Rea Hemoglobin (Bld) [Mass/Vol] 12.5 g/dL Normal 12.0-16.0 [facility] Comment on above: Performed By: #### C BC #### [facility] [address] [place] [address] Dr. Delmer Rea IG # 0.08 10e3/ul Critically high 0.00-0.03 [facility] Comment on above: Performed By: #### C BC #### [facility] [address] [place] [address] Dr. Delmer Rea IG % 0.6 % Critically high 0.0-0.5 [facility] Comment on above: Performed By: #### C BC #### [facility] [address] [place] [address] Dr. Delmer Rea LYMPH # 1.5 103/ul Normal 1.2-3.8 [facility] Comment on above: Performed By: #### C BC #### [facility] [address] [place] [address] Dr. Delmer Rea Lymphocytes/100 WBC (Bld) 11.0 % Critically low 20.5-60.0 [facility] Comment on above: Performed By: #### C BC #### [facility] [address] [place] [address] Dr. Delmer Rea MANUAL DIFF REQ NO Normal [facility] Comment on above: Performed By: #### C BC #### [facility] [address] [place] [address] Dr. Delmer Rea MCH (RBC) [Entitic mass] 29.0 pg Normal 26.7-34.0 [facility] Comment on above: Performed By: #### C BC #### [facility] [address] [place] [address] Dr. Delmer Rea MCHC (RBC) [Mass/Vol] 33.9 g/dL Normal 29.9-35.2 [facility] Comment on above: Performed By: #### C BC #### [facility] [address] [place] [address] Dr. Delmer Rea MCV (RBC) [Entitic vol] 85.6 fL Normal 81.0-99.0 [facility] Comment on above: Performed By: #### C BC #### [facility] [address] [place] [address] Dr. Delmer Rea MONO # 0.8 103/ul Normal 0.3-0.8 [facility] Comment on above: Performed By: #### C BC #### [facility] [address] [place] [address] Dr. Delmer Rea Monocytes/100 WBC (Bld) 5.9 % Normal 1.7-12.0 [facility] Comment on above: Performed By: #### C BC #### [facility] [address] [place] [address] Dr. Delmer Rea NEUT # 11.2 103/ul Critically high 1.4-6.5 [facility] Comment on above: Performed By: #### C BC #### [facility] [address] [place] [address] Dr. Delmer Rea Neutrophils/100 WBC (Bld) 81.6 % Critically high 43.0-75.0 [facility] Comment on above: Performed By: #### C BC #### [facility] [address] [address] [address] Delmer Rea Platelet mean volume (Bld) [Entitic vol] 10.3 fL Normal 9.5-13.5 [facility] Comment on above: Performed By: #### C BC #### [facility] [address] [address] [address] Delmer Rea PLT 362 103/ul Normal 150-450 [facility] Comment on above: Performed By: #### C BC #### [facility] [address] [address] [address] Delmer Rea RBC 4.31 106/ul Normal 4.20-5.40 [facility] Comment on above: Performed By: #### C BC #### [facility] [address] [address] [address] Delmer Rea WBC 13.7 103/ul Critically high 4.0-11.0 [facility] Comment on above: Performed By: #### C BC #### [facility] [address] [address] [address] Delmer Rea CBC with Auto Differentialon 07-18-2022 Absolute Eos # 0.08 [facility] Absolute Immature Granulocyte 0.08 [facility] Absolute Lymph # 2.13 [facility] Absolute [place] # 0.84 [facility] Basophils (Bld) [#/Vol] 0.04 10*3/uL [facility] Basophils/100 WBC (Bld) 0 % 0 - 2 % [facility] Eosinophils/100 WBC (Bld) 1 % 1 - 4 % [facility] Hematocrit (Bld) [Volume fraction] 35.4 % Low 36.3 - 47.1 % [facility] Hemoglobin (Bld) [Mass/Vol] 11.8 g/dL Low 11.9 - 15.1 g/dL [facility] Immature granulocytes/100 WBC (Bld) 1 % High 0 [facility] Interpretation and review of laboratory results Abnormal [facility] Lymphocytes/100 WBC (Bld) 17 % Low 24 - 43 % [facility] MCH (RBC) [Entitic mass] 28.6 pg 25.2 - 33.5 pg [facility] MCHC (RBC) [Mass/Vol] 33.3 g/dL 28.4 - 34.8 g/dL [facility] MCV (RBC) [Entitic vol] 85.7 fL 82.6 - 102.9 fL [facility] Monocytes/100 WBC (Bld) 7 % 3 - 12 % [facility] NRBC Automated 0.0 0.0 per 100 WBC [facility] Platelet distribution width (Bld) [Ratio] 13.2 % 11.8 - 14.4 % [facility] Platelet mean volume (Bld) [Entitic vol] 10.4 fL 8.1 - 13.5 fL [facility] Platelets (Bld) [#/Vol] 339 10*3/uL [facility] RBC (Bld) [#/Vol] 4.13 10*6/uL 3.95 - 5.1 1 m/uL [facility] Segmented neutrophils/100 WBC (Bld) 74 % High 36 - 65 % [facility] Segs Absolute 9.11 High [facility] WBC (Bld) [#/Vol] 12.3 10*3/uL High [facility] CBC with Diffon 07-18-2022 Abs. Basophil 0.04 k/uL Normal 0.00-0.20 [facility] Comment on above: Performed By: #### A NAX, IFX, PHEP, FKLLC, PE #### [facility] [place], [place] [phone] Food Safety Auditor: Bala Skelton MD Abs.Imm.Granulocyte 0.08 k/uL Normal 0.00-0.30 [facility] Comment on above: Performed By: #### A NAX, IFX, PHEP, FKLLC, PE #### [facility] [place], [place] [phone] Food Safety Auditor: Bala Skelton MD Abs.Neutrophil (Seg) 9.11 k/uL High 1.50-8.10 [facility] Comment on above: Performed By: #### A NAX, IFX, PHEP, FKLLC, PE #### [address] [address] Food Safety Auditor: Bala Skelton MD Basophils/100 WBC (Bld) 0 % Normal 0-2 [facility] Comment on above: Performed By: #### A NAX, IFX, PHEP, FKLLC, PE #### [address] [address] Food Safety Auditor: Bala Skelton MD Eosinophils (Bld) [#/Vol] 0.08 10*3/uL Normal 0.00-0.44 [facility] Comment on above: Performed By: #### A NAX, IFX, PHEP, FKLLC, PE #### [address] [address] Food Safety Auditor: Bala Skelton MD Eosinophils/100 WBC (Bld) 1 % Normal 1-4 [facility] Comment on above: Performed By: #### A NAX, IFX, PHEP, FKLLC, PE #### [address] [address] Food Safety Auditor: Bala Skelton MD Erythrocyte distribution width (RBC) [Ratio] 13.2 % Normal 11.8-14.4 [facility] Comment on above: Performed By: #### A NAX, IFX, PHEP, FKLLC, PE #### [place] [address] Food Safety Auditor: Bala Skelton MD Hematocrit (Bld) [Volume fraction] 35.4 % Low 36.3-47.1 [facility] Comment on above: Performed By: #### A NAX, IFX, PHEP, FKLLC, PE #### [address] [address] Food Safety Auditor: Bala Skelton MD Hemoglobin (Bld) [Mass/Vol] 11.8 g/dL Low 11.9-15.1 [facility] Comment on above: Performed By: #### A NAX, IFX, PHEP, FKLLC, PE #### [address] [address] Food Safety Auditor: Bala Skelton MD Immature granulocytes/100 WBC (Bld) 1 % High 0 [facility] Comment on above: Performed By: #### A NAX, IFX, PHEP, FKLLC, PE #### [address] [address] Food Safety Auditor: Bala Skelton MD Lymphocytes (Bld) [#/Vol] 2.13 10*3/uL Normal 1.10-3.70 [facility] Comment on above: Performed By: #### A NAX, IFX, PHEP, FKLLC, PE #### [address] [address] Food Safety Auditor: Bala Skelton MD Lymphocytes/100 WBC (Bld) 17 % Low 24-43 [facility] Comment on above: Performed By: #### A NAX, IFX, PHEP, FKLLC, PE #### [address] [address] Food Safety Auditor: Bala Skelton MD MCH (RBC) [Entitic mass] 28.6 pg Normal 25.2-33.5 [facility] Comment on above: Performed By: #### A NAX, IFX, PHEP, FKLLC, PE #### [address] [address] Food Safety Auditor: Bala Skelton MD MCHC (RBC) [Mass/Vol] 33.3 g/dL Normal 28.4-34.8 [facility] Comment on above: Performed By: #### A NAX, IFX, PHEP, FKLLC, PE #### [address] [address] Food Safety Auditor: Bala Skelton MD MCV (RBC) [Entitic vol] 85.7 fL Normal 82.6-102.9 [facility] Comment on above: Performed By: #### A NAX, IFX, PHEP, FKLLC, PE #### [address] [address] Food Safety Auditor: Bala Skelton MD Monocytes (Bld) [#/Vol] 0.84 10*3/uL Normal 0.10-1.20 [facility] Comment on above: Performed By: #### A NAX, IFX, PHEP, FKLLC, PE #### [address] [address] Food Safety Auditor: Bala Skelton MD Monocytes/100 WBC (Bld) 7 % Normal 3-12 [facility] Comment on above: Performed By: #### A NAX, IFX, PHEP, FKLLC, PE #### [address] [address] Food Safety Auditor: Bala Skelton MD Neutrophil (Seg) 74 % High 36-65 [facility] Comment on above: Performed By: #### A NAX, IFX, PHEP, FKLLC, PE #### [address] [address] Food Safety Auditor: Bala Skelton MD NRBC Automated 0.0 per 100 WBC Normal 0.0 [facility] Comment on above: Performed By: #### A NAX, IFX, PHEP, FKLLC, PE #### [address] [address] Food Safety Auditor: Bala Skelton MD Platelet mean volume (Bld) [Entitic vol] 10.4 fL Normal 8.1-13.5 [facility] Comment on above: Performed By: #### A NAX, IFX, PHEP, FKLLC, PE #### [address] [address] Food Safety Auditor: Bala Skelton MD Platelets (Bld) [#/Vol] 339 10*3/uL Normal 138-453 [facility] Comment on above: Performed By: #### A NAX, IFX, PHEP, FKLLC, PE #### [address] [address] Food Safety Auditor: Bala Skelton MD RBC (Bld) [#/Vol] 4.13 10*6/uL Normal 3.95-5.11 [facility] Comment on above: Performed By: #### A NAX, IFX, PHEP, FKLLC, PE #### [address] [address] Food Safety Auditor: Bala Skelton MD WBC (Bld) [#/Vol] 12.3 10*3/uL High 3.5-11.3 [facility] Comment on above: Performed By: #### A NAX, IFX, PHEP, FKLLC, PE #### [address] [address] Food Safety Auditor: Bala Skelton MD CT ABD/PELVIS WO CONon [...] MARAH ALCANTAR Date: 2022-07-18 12:01 Normal [facility] Covid-19 PCR (CVDTB)on 07-07 SARS-CoV-2 (COVID-19) RNA KASI+probe Ql (Unsp spec) Not detected Normal NOT DETECTED [facility] Comment on above: Result Comment: When [...] for this test is supported by the [place] of Health and Human Service's declaration that [...] DLDL, CON, LIPID, T7, CMP, TSH #### [facility] [address] [place] [address] Dr. Delmer Rea ER URINE PROFILEon 2 Bilirubin Ql (U) Negative Normal NEGATIVE [facility] Comment on above: Performed By: #### U MICRO, ERUR #### [facility] [address] [place] [address] Dr. Delmer Rea Clarity (U) SL CLOUDY Abnormal CLEAR [facility] Comment on above: Performed By: #### U MICRO, ERUR #### [facility] [address] [place] [address] Dr. Delmer Rea Color (U) LT. YELLOW Normal YELLOW [facility] Comment on above: Performed By: #### U MICRO, ERUR #### [facility] [address] [place] [address] Dr. Delmer WALKER A micrscopic examination will be performed if indicated. Normal [facility] Comment on above: Performed By: #### U MICRO, ERUR #### [facility] [address] [place] [address] Dr. Delmer Rea Glucose Ql (U) 1000 mg/dl Abnormal NEGATIVE [facility] Comment on above: Performed By: #### U MICRO, ERUR #### [facility] [address] [place] [address] Dr. Delmer Rea Hemoglobin Ql (U) LARGE Abnormal NEGATIVE [facility] Comment on above: Performed By: #### U MICRO, ERUR #### [facility] [address] [place] [address] Dr. Delmer Rea Ketones Ql (U) Negative Normal NEGATIVE [facility] Comment on above: Performed By: #### U MICRO, ERUR #### [facility] [address] [address] [address] Delmer Rea LEUKOCYTES SMALL Abnormal NEGATIVE [facility] Comment on above: Performed By: #### U MICRO, ERUR #### [facility] [address] [place] [address] Dr. Delmer Rea Nitrite Ql (U) Positive Abnormal NEGATIVE [facility] Comment on above: Performed By: #### U MICRO, ERUR #### [facility] [address] [address] [address] Delmer Rea pH (U) 5.5 [pH] Normal 5-9 [facility] Comment on above: Performed By: #### U MICRO, ERUR #### [facility] [address] [place] [address] Dr. Delmer Rea SPEC GRAVITY 1.020 Normal 1.005-<=1.[address] [facility] Comment on above: Performed By: #### U MICRO, ERUR #### [facility] [address] [place] [address] Dr. Delmer Rea UA PROTEIN TRACE Normal NEGATIVE/ TRACE [facility] Comment on above: Performed By: #### U MICRO, ERUR #### [facility] [address] [place] [address] Dr. Delmer Rea UR MICRO IND INDICATED Normal [facility] Comment on above: Performed By: #### U MICRO, ERUR #### [facility] [address] [place] [address] Dr. Delmer Rea Urobilinogen Qn (U) 0.2 {Juanita'U}/dL Normal 0.2 - 1. 0 [facility] Comment on above: Performed By: #### U MICRO, ERUR #### [facility] [address] [place] [address] Dr. Delmer Rea No Panel Informationon 07-18 [facility] POC Glucose Fingerstickon Glucose [Mass/Vol] 227 mg/dL High 65 - 105 mg/dL [facility] Interpretation and review of laboratory results Abnormal [facility] Glucose [Mass/Vol] 189 mg/dL High 65 - 105 mg/dL [facility] Interpretation and review of laboratory results Abnormal [facility] POCT glucoseOrdered By: Jason Swenson on 07-18-2022 Glucose [Mass/Vol] 189 mg/dL [facility] Interpretation and review of laboratory results Normal [facility] PROF CHEM 8 (BAS METB)on Anion gap [Moles/Vol] 13.6 mmol/L Normal [facility] Comment on above: Performed By: #### U MICRO, ERUR #### [facility] [address] [address] [address] Delmer Rea Calcium [Mass/Vol] 9.6 mg/dL Normal 8.5-10.1 [facility] Comment on above: Performed By: #### U MICRO, ERUR #### [facility] [address] [address] [address] Delmer Rea Chloride [Moles/Vol] 98 mmol/L Normal 98-107 [facility] Comment on above: Performed By: #### U MICRO, ERUR #### [facility] [address] [address] [address] Delmer Rea CO2 [Moles/Vol] 26.0 mmol/L Normal 21.0-32.0 [facility] Comment on above: Performed By: #### U MICRO, ERUR #### [facility] [address] [address] [address] Delmer Rea Creatinine [Mass/Vol] 1.45 mg/dL Critically high 0.55-1.02 [facility] Comment on above: Performed By: #### U MICRO, ERUR #### [facility] [address] [address] [address] Delmer Rea EGFR-AF SLOVAK 46 mL/min/1.73m2 Critically low >=60 [facility] Comment on above: Performed By: #### U MICRO, ERUR #### [facility] [address] [address] [address] Delmer Rea EGFR-NON AF [place] 38 mL/min/1.73m2 Critically low >=60 [facility] Comment on above: Performed By: #### U MICRO, ERUR #### [facility] [address] [place] [address] Dr. Delmer Rea Glucose [Mass/Vol] 314 mg/dL Critically high 74-106 [facility] Comment on above: Performed By: #### U MICRO, ERUR #### [facility] [address] [place] [address] Dr. Delmer Rea Potassium [Moles/Vol] 4.6 mmol/L Normal 3.5-5.1 [facility] Comment on above: Result Comment: spec imen slightly hemolyzed Performed By: #### U MICRO, ERUR #### [facility] [address] [place] [address] Dr. Delmer Rea Sodium [Moles/Vol] 133 mmol/L Critically low 136-145 [facility] Comment on above: Performed By: #### U MICRO, ERUR #### [facility] [address] [place] [address] Dr. Delmer Rea Urea nitrogen [Mass/Vol] 35.0 mg/dL Critically high 7.0-18.0 [facility] Comment on above: Performed By: #### U MICRO, ERUR #### [facility] [address] [place] [address] Dr. Delmer Rea Urea nitrogen/Creatinine [Mass ratio] 24.1 mg/mg Normal [facility] Comment on above: Performed By: #### U MICRO, ERUR #### [facility] [address] [place] [address] Dr. Delmer Rea PTon 07-18-2022 INR Coag (PPP) [Relative time] 0.9 {INR} Normal [facility] Comment on above: Result Comment: Therapeutic Range: Moderate Anticoagulant Intensity: INR = 2.0-3.0 High Anticoagulant Intensity: INR = 2.5-3.5 Performed By: #### A NAX, IFX, PHEP, FKLLC, PE #### [facility] [employer] [address] [place] [phone] Food Safety Auditor: Bala Skelton MD PT Coag (PPP) [Time] 10.0 s Normal 9.1-12.3 [facility] Comment on above: Performed By: #### A NAX, IFX, PHEP, FKLLC, PE #### [facility] [address] [place], [place] [id number] Food Safety Auditor: Bala Skelton MD Protime-INRon 07-18-2022 INR Coag (Bld) [Relative time] 0.9 {INR} [facility] Comment on above: Therapeutic Range: Moderate Anticoagulant Intensity: INR = 2.0-3.0 High Anticoagulant Intensity: INR = 2.5-3.5 PT Coag (PPP) [Time] 10 s [facility] URINE MICROSCOPIC ONLYon BACTERIA SMALL Abnormal NONE SEEN [facility] Comment on above: Performed By: #### U MICRO, ERUR #### [facility] [address] [place] [address] Dr. Delmer Rea Bacteria identified Cx Nom (U) INDICATED Normal [facility] Comment on above: Performed By: #### U MICRO, ERUR #### [facility] [address] [place] [address] Dr. Delmer Rea CAST NONE SEEN Normal NONE SEEN [facility] Comment on above: Performed By: #### U MICRO, ERUR #### [facility] [address] [place] [address] Dr. Delmer Rea Crystals LM Nom (Urine sed) NONE SEEN Normal NONE SEEN [facility] Comment on above: Performed By: #### U MICRO, ERUR #### [facility] [address] [place] [address] Dr. Delmer Rea Epithelial cells LM Ql (Urine sed) FEW Abnormal NONE SEEN /RARE [facility] Comment on above: Performed By: #### U MICRO, ERUR #### [facility] [address] [place] [address] Dr. Delmer Rea MUCOUS NONE SEEN Normal NONE SEEN [facility] Comment on above: Performed By: #### U MICRO, ERUR #### [facility] [address] [address] [address] Delmer Rea RBC 20-50 Abnormal 0-2 [facility] Comment on above: Performed By: #### U MICRO, ERUR #### [facility] [address] [address] [address] Delmer Rea WBC 10-20 Abnormal NONE SEEN [facility] Comment on above: Performed By: #### U MICRO, ERUR #### [facility] [address] [address] [address] Delmer Rea ALEXANDRE by IFAon 04-18-2022 Antinuclear Antibodies, IFA Negative Normal [facility] Comment on above: Result Comment: Nega tive <1:80 Borderline 1:80 Positive >1:80 ICAP nomenclature: AC-0 For more information about Hep-2 cell patterns use ANApatterns.org, the official website for the International Consensus on Antinuclear Antibody (ALEXANDRE) Patterns (ICAP). Performed By: #### U MICRO, ERUR #### [facility] [address] [place] [address] Dr. Delmer Rea ANTISTREPTOLYSIN O AB (ASO)o n 04-16-2022 Antistreptolysin O Ab 23.8 IU/mL Normal 0.0-200.0 [facility] Comment on above: Performed By: #### U MICRO, ERUR #### [facility] [address] [place] [address] Dr. Delmer Rea INSULINon 04-16-2022 Insulin 96.9 uIU/mL Critically high 2.6-24.9 [facility] Comment on above: Performed By: #### L IPA, DLDL, CON, LIPID, T7, CMP, TSH #### [facility] [address] [place] [address] Dr. Delmer Rea RHEUMATOID FACTORon 04-16-20 RA Latex Turbid. 13.5 IU/mL Normal <14.0 [facility] Comment on above: Performed By: #### L IPA, DLDL, CON, LIPID, T7, CMP, TSH #### [facility] [address] [place] [address] Dr. Delmer Rea BNPon 04-15-2022 Natriuretic peptide B (Bld) [Mass/Vol] 168.0 pg/mL Normal <=900.0 [facility] Comment on above: Performed By: #### L IPA, DLDL, CON, LIPID, T7, CMP, TSH #### [facility] [address] [place] [address] Dr. Delmer Rea CBC AUTO DIFFon 04-15-2022 BASO # 0.0 103/ul Normal 0.0-0.1 [facility] Comment on above: Performed By: #### L IPA, DLDL, CON, LIPID, T7, CMP, TSH #### [facility] [address] [place] [address] Dr. Delmer Rea Basophils/100 WBC (Bld) 0.4 % Normal 0.2-2.0 [facility] Comment on above: Performed By: #### L IPA, DLDL, CON, LIPID, T7, CMP, TSH #### [facility] [address] [place] [address] Dr. Delmer Rea EO # 0.1 103/ul Normal 0.0-0.7 [facility] Comment on above: Performed By: #### L IPA, DLDL, CON, LIPID, T7, CMP, TSH #### [facility] [address] [place] [address] Dr. Delmer Rea Eosinophils/100 WBC (Bld) 2.3 % Normal 0.9-7.0 [facility] Comment on above: Performed By: #### L IPA, DLDL, CON, LIPID, T7, CMP, TSH #### [facility] [address] [place] [address] Dr. Delmer Rea Erythrocyte distribution width (RBC) [Ratio] 11.9 % Normal 11.0-15.0 [facility] Comment on above: Performed By: #### L IPA, DLDL, CON, LIPID, T7, CMP, TSH #### [facility] [address] [place] [address] Dr. Delmer Rea Hematocrit (Bld) [Volume fraction] 37.8 % Normal 36.0-48.0 [facility] Comment on above: Performed By: #### L IPA, DLDL, CON, LIPID, T7, CMP, TSH #### [facility] [address] [place] [address] Dr. Delmer Rea Hemoglobin (Bld) [Mass/Vol] 12.7 g/dL Normal 12.0-16.0 [facility] Comment on above: Performed By: #### L IPA, DLDL, CON, LIPID, T7, CMP, TSH #### [facility] [address] [place] [address] Dr. Delmer Rea IG # 0.01 10e3/ul Normal 0.00-0.03 [facility] Comment on above: Performed By: #### L IPA, DLDL, CON, LIPID, T7, CMP, TSH #### [facility] [address] [place] [address] Dr. Delmer Rea IG % 0.2 % Normal 0.0-0.5 [facility] Comment on above: Performed By: #### L IPA, DLDL, CON, LIPID, T7, CMP, TSH #### [facility] [address] [place] [address] Dr. Delmer Rea LYMPH # 1.8 103/ul Normal 1.2-3.8 [facility] Comment on above: Performed By: #### L IPA, DLDL, CON, LIPID, T7, CMP, TSH #### [facility] [address] [place] [address] Dr. Delmer Rea Lymphocytes/100 WBC (Bld) 34.6 % Normal 20.5-60.0 [facility] Comment on above: Performed By: #### L IPA, DLDL, CON, LIPID, T7, CMP, TSH #### [facility] [address] [place] [address] Dr. Delmer Rea MANUAL DIFF REQ NO Normal [facility] Comment on above: Performed By: #### L IPA, DLDL, CON, LIPID, T7, CMP, TSH #### [facility] [address] [place] [address] Dr. Delmer Rea MCH (RBC) [Entitic mass] 28.7 pg Normal 26.7-34.0 [facility] Comment on above: Performed By: #### L IPA, DLDL, CON, LIPID, T7, CMP, TSH #### [facility] [address] [place] [address] Dr. Delmer Rea MCHC (RBC) [Mass/Vol] 33.6 g/dL Normal 29.9-35.2 [facility] Comment on above: Performed By: #### L IPA, DLDL, CON, LIPID, T7, CMP, TSH #### [facility] [address] [place] [address] Dr. Delmer Rea MCV (RBC) [Entitic vol] 85.5 fL Normal 81.0-99.0 [facility] Comment on above: Performed By: #### L IPA, DLDL, CON, LIPID, T7, CMP, TSH #### [facility] [address] [place] [address] Dr. Delmer Rea MONO # 0.5 103/ul Normal 0.3-0.8 [facility] Comment on above: Performed By: #### L IPA, DLDL, CON, LIPID, T7, CMP, TSH #### [facility] [address] [place] [address] Dr. Delmer Rea Monocytes/100 WBC (Bld) 8.6 % Normal 1.7-12.0 [facility] Comment on above: Performed By: #### L IPA, DLDL, CON, LIPID, T7, CMP, TSH #### [facility] [address] [place] [address] Dr. Delmer Rea NEUT # 2.8 103/ul Normal 1.4-6.5 [facility] Comment on above: Performed By: #### L IPA, DLDL, CON, LIPID, T7, CMP, TSH #### [facility] [address] [place] [address] Dr. Delmer Rea Neutrophils/100 WBC (Bld) 53.9 % Normal 43.0-75.0 [facility] Comment on above: Performed By: #### L IPA, DLDL, CON, LIPID, T7, CMP, TSH #### [facility] [address] [address] [address] Delmer Rea Platelet mean volume (Bld) [Entitic vol] 10.2 fL Normal 9.5-13.5 [facility] Comment on above: Performed By: #### L IPA, DLDL, CON, LIPID, T7, CMP, TSH #### [facility] [address] [address] [address] Delmer Rea PLT 326 103/ul Normal 150-450 [facility] Comment on above: Performed By: #### L IPA, DLDL, CON, LIPID, T7, CMP, TSH #### [facility] [address] [address] [address] Delmer Rea RBC 4.42 106/ul Normal 4.20-5.40 [facility] Comment on above: Performed By: #### L IPA, DLDL, CON, LIPID, T7, CMP, TSH #### [facility] [address] [place] [address] Dr. Delmer Rea WBC 5.2 103/ul Normal 4.0-11.0 [facility] Comment on above: Performed By: #### L IPA, DLDL, CON, LIPID, T7, CMP, TSH #### [facility] [address] [place] [address] Dr. Delmer Rea CRPon 04-15-2022 CRP [Mass/Vol] mg/L Normal <=1.0 [facility] Comment on above: Performed By: #### L IPA, DLDL, CON, LIPID, T7, CMP, TSH #### [facility] [address] [place] [address] Dr. Delmer Rea FREE THYROXINE INDEX T7on FTI 5.07 Critically high 1.30-4.[address] [facility] Comment on above: Performed By: #### L IPA, DLDL, CON, LIPID, T7, CMP, TSH #### [facility] [address] [place] [address] Dr. Delmer Rea T3U 37.0 % Normal 30.0-39.0 [facility] Comment on above: Performed By: #### L IPA, DLDL, CON, LIPID, T7, CMP, TSH #### [facility] [address] [address] [address] Delmer Rea T4 [Mass/Vol] 13.70 ug/dL Normal 4.80-13.[address] [facility] Comment on above: Performed By: #### L IPA, DLDL, CON, LIPID, T7, CMP, TSH #### [facility] [address] [address] [address] Delmer Rea GLYCOHEMOGLOBIN A1Con 2021 ADA RECOMMENDATION SEE BELOW Normal [facility] Comment on above: Result Comment: ADA RECOMMENDED LIMIT 4.0 - 6.0 ADA THERAPEUTIC TARGET < 7.0 ACTION SUGGESTED > 7.0 Performed By: #### L IPA, DLDL, CON, LIPID, T7, CMP, TSH #### [facility] [address] [place] [address] Dr. Delmer Rea Glucose [Mass/Vol] 174 mg/dL Normal [facility] Comment on above: Performed By: #### L IPA, DLDL, CON, LIPID, T7, CMP, TSH #### [facility] [address] [address] [address] Delmer Rea HbA1c (Bld) [Mass fraction] 7.7 % Critically high 4.5-6.2 [facility] Comment on above: Performed By: #### L IPA, DLDL, CON, LIPID, T7, CMP, TSH #### [facility] [address] [address] [address] Delmer Rea IRONon 04-15-2022 Iron [Mass/Vol] 84.0 ug/dL Normal 50.0-170.0 [facility] Comment on above: Performed By: #### U MICRO, ERUR #### [facility] [address] [address] [address] Delmer Rea LIPID PROFILEon 04-15-2022 CHOL-HDL RATIO NORM SEE BELOW Normal [facility] Comment on above: Result Comment: 3.3 - 4.4 LOW RISK 4.4 - 7.1 AVERAGE RISK 7.1 - 11.0 MODERATE RISK >11.0 HIGH RISK Performed By: #### L IPA, DLDL, CON, LIPID, T7, CMP, TSH #### [facility] [address] [address] [address] Delmer Rea Cholesterol [Mass/Vol] 239 mg/dL Critically high <=200 [facility] Comment on above: Performed By: #### L IPA, DLDL, CON, LIPID, T7, CMP, TSH #### [facility] [address] [address] [address] Delmer Rea Cholesterol in HDL [Mass/Vol] 43 mg/dL Normal 40-60 [facility] Comment on above: Performed By: #### L IPA, DLDL, CON, LIPID, T7, CMP, TSH #### [facility] [address] [address] [address] Delmer Rea Cholesterol in LDL [Mass/Vol] 131.8 mg/dL Normal [facility] Comment on above: Performed By: #### L IPA, DLDL, CON, LIPID, T7, CMP, TSH #### [facility] [address] [address] [address] Delmer Rea Cholesterol.total/Ch olesterol in HDL [Mass ratio] 5.6 {ratio} Normal [facility] Comment on above: Performed By: #### L IPA, DLDL, CON, LIPID, T7, CMP, TSH #### [facility] [address] [address] [address] Delmer Rea HDL NORMAL > or = 60 mg/dl - LO W CARDIOVASCULAR RISK <40 mg/dl - HIGH CARDIOVASCULAR RISK Normal [facility] Comment on above: Performed By: #### L IPA, DLDL, CON, LIPID, T7, CMP, TSH #### [facility] [address] [address] [address] Delmer Rea LDL CALC NORMAL SEE BELOW Normal [facility] Comment on above: Result Comment: <100 mg/dl OPTIMAL 100 - 129 mg/dl NEAR OR ABOVE OPTIMAL 130 - 159 mg/dl BORDERLINE HIGH 160 - 189 mg/dl HIGH >190 mg/dl VERY HIGH Performed By: #### L IPA, DLDL, CON, LIPID, T7, CMP, TSH #### [facility] [address] [address] [address] Delmer Rea Triglyceride [Mass/Vol] 321 mg/dL Critically high <=150 [facility] Comment on above: Performed By: #### L IPA, DLDL, CON, LIPID, T7, CMP, TSH #### [facility] [address] [address] [address] Delmer Rea VLDL CALC 64.2 mg/dL Normal [facility] Comment on above: Performed By: #### L IPA, DLDL, CON, LIPID, T7, CMP, TSH #### [facility] [address] [address] [address] Delmer Rea PROF 14(COMP METB)on 022 Albumin [Mass/Vol] 3.6 g/dL Normal 3.4-5.0 [facility] Comment on above: Performed By: #### L IPA, DLDL, CON, LIPID, T7, CMP, TSH #### [facility] [address] [place] [address] Dr. Delmer Rea Albumin/Globulin [Mass ratio] 0.9 {ratio} Normal [facility] Comment on above: Performed By: #### L IPA, DLDL, CON, LIPID, T7, CMP, TSH #### [facility] [address] [place] [address] Dr. Delmer Rea ALP [Catalytic activity/Vol] 98 U/L Normal 46-116 [facility] Comment on above: Performed By: #### L IPA, DLDL, CON, LIPID, T7, CMP, TSH #### [facility] [address] [address] [address] Delmer Rea ALT [Catalytic activity/Vol] 21 U/L Normal 14-59 [facility] Comment on above: Performed By: #### L IPA, DLDL, CON, LIPID, T7, CMP, TSH #### [facility] [address] [address] [address] Delmer Rea Anion gap [Moles/Vol] 15.8 mmol/L Normal [facility] Comment on above: Performed By: #### L IPA, DLDL, CON, LIPID, T7, CMP, TSH #### [facility] [address] [address] [address] Delmer Rea AST [Catalytic activity/Vol] 10 U/L Critically low 15-37 [facility] Comment on above: Performed By: #### L IPA, DLDL, CON, LIPID, T7, CMP, TSH #### [facility] [address] [address] [address] Delmer Rea Bilirubin [Mass/Vol] 0.6 mg/dL Normal 0.2-1.0 [facility] Comment on above: Performed By: #### L IPA, DLDL, CON, LIPID, T7, CMP, TSH #### [facility] [address] [address] [address] Delmer Rea Calcium [Mass/Vol] 9.4 mg/dL Normal 8.5-10.1 [facility] Comment on above: Performed By: #### L IPA, DLDL, CON, LIPID, T7, CMP, TSH #### [facility] [address] [address] [address] Delmer Rea Chloride [Moles/Vol] 105 mmol/L Normal 98-107 [facility] Comment on above: Performed By: #### L IPA, DLDL, CON, LIPID, T7, CMP, TSH #### [facility] [address] [address] [address] Delmer Rea CO2 [Moles/Vol] 26.2 mmol/L Normal 21.0-32.0 [facility] Comment on above: Performed By: #### L IPA, DLDL, CON, LIPID, T7, CMP, TSH #### [facility] [address] [place] [address] Dr. Delmer Rea Creatinine [Mass/Vol] 1.26 mg/dL Critically high 0.55-1.02 [facility] Comment on above: Performed By: #### L IPA, DLDL, CON, LIPID, T7, CMP, TSH #### [facility] [address] [address] [address] Delmer Rea EGFR-AF [place] 54 mL/min/1.73m2 Critically low >=60 [facility] Comment on above: Performed By: #### L IPA, DLDL, CON, LIPID, T7, CMP, TSH #### [facility] [address] [place] [address] Dr. Delmer Rea EGFR-NON AF [place] 45 mL/min/1.73m2 Critically low >=60 [facility] Comment on above: Performed By: #### L IPA, DLDL, CON, LIPID, T7, CMP, TSH #### [facility] [address] [place] [address] Dr. Delmer Rea Globulin (S) [Mass/Vol] 3.9 g/dL Normal [facility] Comment on above: Performed By: #### L IPA, DLDL, CON, LIPID, T7, CMP, TSH #### [facility] [address] [place] [address] Dr. Delmer Rea Glucose [Mass/Vol] 125 mg/dL Critically high 74-106 [facility] Comment on above: Performed By: #### L IPA, DLDL, CON, LIPID, T7, CMP, TSH #### [facility] [address] [place] [address] Dr. Delmer Rea Potassium [Moles/Vol] 4.0 mmol/L Normal 3.5-5.1 [facility] Comment on above: Performed By: #### L IPA, DLDL, CON, LIPID, T7, CMP, TSH #### [facility] [address] [place] [address] Dr. Delmer Rea Protein [Mass/Vol] 7.5 g/dL Normal 6.4-8.2 [facility] Comment on above: Performed By: #### L IPA, DLDL, CON, LIPID, T7, CMP, TSH #### [facility] [address] [place] [address] Dr. Delmer Rea Sodium [Moles/Vol] 143 mmol/L Normal 136-145 [facility] Comment on above: Performed By: #### L IPA, DLDL, CON, LIPID, T7, CMP, TSH #### [facility] [address] [place] [address] Dr. Delmer Rea Urea nitrogen [Mass/Vol] 34.0 mg/dL Critically high 7.0-18.0 [facility] Comment on above: Performed By: #### L IPA, DLDL, CON, LIPID, T7, CMP, TSH #### [facility] [address] [address] [address] Delmer Rea Urea nitrogen/Creatinine [Mass ratio] 27.0 mg/mg Normal [facility] Comment on above: Performed By: #### L IPA, DLDL, CON, LIPID, T7, CMP, TSH #### [facility] [address] [place] [address] Dr. Delmer Rea TSHon 04-15-2022 TSH 0.009 uIU/mL Critically low 0.358-3.740 [facility] Comment on above: Performed By: #### L IPA, DLDL, CON, LIPID, T7, CMP, TSH #### [facility] [address] [place] [address] Dr. Delmer Rea TSH RANGE SEE BELOW Normal [facility] Comment on above: Result Comment: <0.3 4 UIU/ml HYPERTHYROID 0.34-5.60 UIU/ml EUTHYROID >5.60 UIU/ml HYPOTHYROID Performed By: #### L IPA, DLDL, CON, LIPID, T7, CMP, TSH #### [facility] [address] [place] [address] Dr. Delmer Rea URIC ACID SERUMon 04-15-2022 Urate [Mass/Vol] 7.1 mg/dL Critically high 2.6-6.0 [facility] Comment on above: Performed By: #### L IPA, DLDL, CON, LIPID, T7, CMP, TSH #### [facility] [address] [place] [address] Dr. Delmer Rea VITAMIN D 25 OHon 04-15-2022 VIT D 25-OH 23.8 ng/mL Normal [facility] Comment on above: Performed By: #### U MICRO, ERUR #### [facility] [address] [place] [address] Dr. Delmer Rea VIT D RANGES SEE BELOW Normal [facility] Comment on above: Result Comment: <20 ng/mL Vit D deficient 20 - <30 ng/mL Vit D insufficient 30 - 100 ng/mL Vit D sufficient >100 ng/mL Potential Toxicity Performed By: #### U MICRO, ERUR #### [facility] [address] [address] [address] Delmer Bowman 11-09-2021 CNPN Telephone (GENBMI) ASA THOMPSON ([id number]) 1970 F Date Time Provider Department 11/09/21 [...] by ABRAHAM PACHECO on 11/09/21 [facility]20[facility]GENI[facility] ASA THOMPSON ([id number]) 1970 F Date Time Provider Department 10/05/21 ABRAHAM PACHECO [facility] During your visit today, we recorded [...] Encounter Status:Closed by ABRAHAM PACHECO on 10/05/21 [facility] 07-29-2021 [facility] ([facility]) LUCASA SPANN ([id number]) 1970 F Date Time Provider Department 07/29/21 [...] Status:Closed by ABRAHAM PACHECO on 07/29/21 [facility] ([place]) ASA THOMPSON ([id number]) 1970 F Date Time Provider Department [facility], we recorded the following information about you: Abraham Pacheco RN 07/14/2021 3:04 PM Addendum Follow up call placed to patient, no answer phone; left voice message with my call back phone number. [phone] Cancelled surgery scheduled for 07/15/21. No call [...] Status:Closed by ABRAHAM PACHECO on 07/14/21 Normal [facility] Telephone ([facility]) ASA THOMPSON ([id number]) 1970 F Date Time Provider Department 07/14/21 JEANNINE TAMEZ [facility] During your visit today, we recorded the following information about you: Jeannine Tamez, PhD 07/14/2021 1:[address] [facility] Attempted to [...] Status:Closed by JEANNINE TAMEZ on 07/14/21 [facility] CNPN Telephone (GENBMI) ASA THOMPSON ([id number]) 1970 F Date Time Provider Department 07/13/21 [...] Encounter Status:Closed by ABRAHAM PACHECO on 07/13/21 [facility] 07-08-2021 [facility] (GENBMI[facility] ASA THOMPSON ([id number]) 1970 F Date Time Provider Department 07/08/21 [...] Status:Closed by ABRAHAM PACHECO on 07/15/21 [facility] ASA THOMPSON ([id number]) 1970 F Date Time Provider Department 07/08/21 ABRAHAM PACHECO [facility] During your visit today, we recorded the [...] Encounter Status:Closed by ABRAHAM PACHECO on 07/08/21 [facility] 07-07-2021 [facility] ASA [id number]) 1970 F Date Time Provider Department 07/07/21 [...] Status:Closed by ABRAHAM PACHECO on 07/07/21 [facility] CNPN Telephone ([place]) ASA THOMPSON ([id number]) 1970 F Date Time Provider Department 07/05/21 ABRAHAM PACHECO [facility] During your visit today, we recorded [...] Encounter Status:Closed by ABRAHAM PACHECO on 07/06/21 [facility] 06-21-2021 [facility]) ASA THOMPSON ([id number]) 1970 F Date Time Provider Department 06/21/21 [...] arrival time. Other Instructions Reviewed: Gave patient [phone] My Chart Support line phone number Skin [...] daily. - (more content not included)... [facility] CNPN Telephone (GENBMI) ASA THOMPSON ([id number]) 1970 F Date Time Provider Department 05/25/21 ABRAHAM PACHECO [facility] During your visit today, we recorded the following information about you: Abraham Pacheco RN 05/25/2021 4:23 PM Signed [facility] COORDINATION SURGERY APPROVAL CALL Received e-mail confirmation of insurance approval for bariatric surgery.Pre-operative call placed to the patient, this RN spoke with patient and agreed upon a surgery date of July 15 2021. Surgical episode request sent to [facility] surgery scheduling. -Patient instructed to [...] instructed to fax FMLA forms to medical imaging tech and allow 7-10 days for completion. Radha [...] Status:Closed by ABRAHAM PACHECO on 05/25/21 Normal [facility] 04-26-2021 CNCO Letter Text Normal [facility] CNCOon 04-21-2021 CNCO Letter Text Normal [facility] CNCOon 04-12-2021 CNCO Letter Text Normal [facility] Vital Signs Date Time Vital Sign Value Performing Clinician Facility 12-27-2022 15:00-0500 Body height 160.02 cm Aime Capone Other [facility] Other 12-27-2022 15:00-0500 Body mass index (BMI) [Ratio] 44.63 kg/m2 Aime Capone Other [facility] Other 12-27-2022 15:00-0500 Body weight 114.31 kg Aime Capone Other [facility] Other 12-27-2022 15:00-0500 Diastolic blood pressure 61 mm[Hg] Aime Capone Other [facility] Other 12-27-2022 15:00-0500 Respiratory rate 18 /min Aime Capone Other [facility] Other 12-27-2022 15:00-0500 SaO2% (BldA) [Mass fraction] 97 % Aime Cap[facility] Other [facility] Other 12-27-2022 15:00-0500 Systolic blood pressure 127 mm[Hg] Aime Capone Other [facility] Other 07-26-2022 10:45-0400 Body temperature 98.2 [degF] Bishnu Horner MD Work Phone: [employer] 07-26-2022 10:45-0400 Diastolic blood pressure 65 mm[Hg] Bishnu Horner MD Work Phone: [employer] 07-26-2022 10:45-0400 Heart rate 84 /min Bishnu Horner MD Work Phone: [employer] 07-26-2022 10:45-0400 Respiratory rate 16 /min Bishnu Horner MD Work Phone: [employer] 07-26-2022 10:45-0400 SaO2% (BldA) [Mass fraction] 98 % Bishnu Horner MD Work Phone: [employer] 07-26-2022 10:45-0400 Systolic blood pressure 161 mm[Hg] Bishnu Horner MD Work Phone: [facility] [employer] 07-25-2022 18:02-0400 Body height 165.1 cm Bishnu Horner MD Work Phone: [employer] 07-25-2022 18:02-0400 Body mass index (BMI) [Ratio] 39.94 kg/m2 Bishnu Horner MD Work Phone: [employer] 07-25-2022 18:02-0400 Body weight 108.86 kg Bishnu Horner MD Work Phone: [facility] [employer] 07-22-2022 11:28-0400 Body temperature 98.2 [degF] Aime Bird MD [facility] [employer] 07-22-2022 11:28-0400 Diastolic blood pressure 72 mm[Hg] Aime Bird MD [facility] [employer] 07-22-2022 11:28-0400 Heart rate 92 /min Aime Bird MD [facility] [employer] 07-22-2022 11:28-0400 Respiratory rate 12 /min Aime Bird MD [facility] [employer] 07-22-2022 11:28-0400 SaO2% (BldA) [Mass fraction] 96 % Aime Bird MD [facility] [employer] 07-22-2022 11:28-0400 Systolic blood pressure 155 mm[Hg] Aime Bird MD [facility] [employer] 07-18-2022 20:54-0400 Body height 165.1 cm Aime Bird MD [facility] [employer] 07-18-2022 20:54-0400 Body mass index (BMI) [Ratio] 42.56 kg/m2 Aime Bird MD [facility] [employer] 07-18-2022 20:54-0400 Body weight 116 kg Aime Bird MD [facility] [employer] Encounters Encounter Date Encounter Type Care Provider Facility Start: 11-01-2024 [facility]: [facility] End: 09-02-2024 ambulatory [facility] Start: 08-03-2024 End: 08-06-2024 Evaluation and management of inpatient GARRY RAMOS [facility] Start: 03-10-2023 End: 03-11-2023 ambulatory AIME EDMONDSONS Facility:[facility] Start: 01-03-2023 ambulatory AIME CAPONE Facility:[facility] Start: 12-28-2022 End: 12-29-2022 ambulatory AIME CAOPNE Facility:[facility] Start: 12-27-2022 End: 12-27-2022 ambulatory [facility] Start: 12-27-2022 [facility] ne w [facility] Start: 12-01-2022 End: 12-02-[address] GARRY RAMOS . Facility:[facility] Start: 11-26-2022 End: 11-26-[address] GARRY RAMOS . Facility:[facility] Start: 11-25-2022 End: 11-26-[address] GARRY RAMOS . Facility:[facility] Start: 09-23-[address] GARRY RAMOS . Facili ty:[facility] Start: 09-12-2022 End: 09-12-[address] GARRY RAMOS . Facility:[facility] Start: 08-05-2022 End: 08-08-2022 ambulatory CHRISTIJARROD CHANCE [facility] Start: 07-25-2022 End: 07-26-2022 ambulatory GARRY RAMOS [facility] Start: 07-25-2022 End: 07-26-2022 Emergency department patient visit Bishnu Horner MD Work Phone: [facility] 3C Observation Comment on above: Nephrostomy complica tion (HCC) (Primary Dx) Start: 07-18-2022 End: 07-22-2022 Evaluation and management of inpatient CHINO DEMPSEY [facility] Start: 07-18-2022 End: 07-22-2022 Evaluation and management of inpatient Aime Bird MD [facility] 5C Stepdown Comment on above: Kidney stone (Primar y Dx); Acute pyelonephritis; Left renal atrophy; Staghorn renal calculus; OMAR (acute kidney injury) ([facility]) Start: 07-18-2022 End: 07-18-[address] GARRY RAMOS . Facility: Start: 04-15-2022 End: 04-16-[address] GARRY RAMOS . Facility: Start: 04-01-[address] GARRY RAMOS . Facili ty:H1 Start: 02-15-2019 End: 02-22-2019 ambulatory GARRY RAMOS Facility:[facility] Procedures Date Procedure Procedure Detail [...] Visit Infectious Diseases Urban Noriega MD [address] [facility] [place] [address] [facility]. Start: 08-03-2022 End: 07-20-2023 NM KIDNEY W FLOW AND FUNCTION W PHARMACOLOGICAL INTERVENTION NM KIDNEY W FLOW AND FUNCTION W PHARMACOLOGICAL INTERVENTION Imaging Routine Left renal atrophy Staghorn renal calculus Expected: 08/03/2022, Expires: 07/20/2023 [employer] Work Phone: Comment on above: Expected: 08/03/2022 , Expires: 07/20/2023 Start: 07-29-2022 End: 07-22-2023 Basic metabolic 2000 panel - Serum or Plasma Basic Metabolic Panel Lab Routine OMAR (acute kidney injury) (HCC) Expected: 07/29/2022, Expires: 07/22/2023 [employer] Work Phone: Comment on above: Expected: 07/29/2022 , Expires: 07/22/2023 Start: 07-07-2022 Influenza vaccination Flu vaccine (# 1) [employer] Start: 2021 Screening for malign ant neoplasm of breast Breast cancer screen [employer] [facility] Start: 2021 Shingles vaccine (1 of 2) Shingles vaccine (1 of 2) [facility] Start: 2016 Screening for malign ant neoplasm of colon [facility] Start: 2001 Screening for malign ant neoplasm of cervix [facility] Start: 1992 Screening for malign ant neoplasm of cervix Pap smear [facility] Start: 1990 DTaP/Tdap/Td vaccine (1 - Tdap) DTaP/Tdap/Td vaccine (1 - Tdap) [facility] Start: 1990 Hepatitis B vaccine (1 of 3 - Risk 3-dose series) Hepatitis B vaccine (1 of 3 - Risk 3-dose series) [facility] Start: 1989 Diabetic retinal exam Diabetic retin al exam [facility] Start: 1989 Urine screening for protein Diabetic microalbuminuria test [facility] Start: 1986 HIV screening HIV screen [facility] Start: 1983 Depression Monitoring Depression Mon itoring [facility] Start: 1981 Diabetic foot examination Diabetic foot exam [facility] Start: 1981 Hemoglobin A1c measurement A1C test (Diabetic or Prediabetic) [facility] Start: 1981 Lipid panel Lipids [facility] Start: 1977 Pneumococcal 0-64 ye ars Vaccine (1 - PCV) Pneumococcal 0-64 years Vaccine (1 - PCV) [facility] Start: 03-26-1972 COVID-19 Vaccine (#1) COVID-19 Vacci ne (#1) [facility] End: 08-01-2022 Basic Metabolic Panel w/ Reflex to MG Basic Metabolic Panel w/ Reflex to MG Lab Routine Daily for 14 Occurrences starting 07/19/2022 until 08/01/2022, 3 completed [facility] Work Phone: Comment on above: Daily for 14 Occurre nces starting 07/19/2022 until 08/01/2022, 3 completed Culture, Blood 1 [facility] [employer]tras Work Phone: Culture, Blood 1 Culture, Blood 1 Microbiology STAT 07/20/2022 4:26 AM EDT [facility] RECESS. Phone: Culture, Blood 1 [facility] [employer] Work Phone: Culture, Blood 2 Culture, Blood 2 Microbiology STAT 07/20/2022 4:26 AM EDT [employer] Phone: Glucose [Mass/volume ] in Serum or Plasma [employer] Phone: Comment on above: 4X Daily (AC & HS) u ntil discontinued starting 07/18/2022, 1 completed As Needed until disc ontinued starting 07/18/2022 Glucose [Mass/volume ] in Serum or Plasma POCT Glucose Point of Care Testing STAT As Needed until discontinued starting 07/26/2022 [employer] Phone: Comment on above: As Needed until disc ontinued starting 07/26/2022 Oxygen therapy [Mini mum Data Set] Initiate Oxygen Therapy Protocol Respiratory Care Routine As Needed until discontinued starting 07/18/2022 [employer] Phone: Comment on above: As Needed until disc ontinued starting 07/18/2022 Oxygen therapy [Mini mum Data Set] Initiate Oxygen Therapy Protocol Respiratory Care Routine Daily until discontinued starting 07/25/2022 [employer] Phone: Comment on above: Daily until disconti nued starting 07/25/2022 Immunizations Immunization Date Immunization Notes Care Provider Rick mcginnis 08-19-2016 tetanus toxoid, reduced diphtheria toxoid, and acellular pertussis vaccine, adsorbed Aziz Bakhous Other [employer] Other Payers Date Payer Category Payer Unknown [id number] 2.16.8 [id number] 1970 Unknown [id number] 2.16.8 [id number] 1970 Unknown [id number] 2.16. [id number] 1971 Unknown [id number] 2.16. [id number] 1971 Unknown [id number] 2.16.84 0.1.688078.3.579.2.593 1971 Unknown [id number] 2.16.84 0.1.011271.3.579.2.593 1971 Unknown [id number] 2.16.84 0.1.663264.3.579.2.593 1971 Unknown [id number] 2.16.84 0.1.395648.3.579.2.593 1971 Unknown [id number] 2.16.84 0.1.236279.3.579.2.593 1971 Unknown [id number] 2.16.84 0.1.096587.3.579.2.593 1971 Unknown [id number] 2.16.84 0.1.748464.3.579.2.593 1971 Unknown [id number] 2.16.84 0.1.281228.3.579.2.593 1971 Unknown [id number] 2.16.84 0.1.060157.3.579.2.593 1971 Unknown [id number] 2.16.84 0.1.123871.3.579.2.593 1971 Unknown [id number] 2.16.84 0.1.675632.3.579.2.593 1971 Unknown [id number] 2.16.8 40.1.262441.3.579.2.1286 1958 Self-pay [id number] 1959 Unknown [id number] 1959 Unknown [id number] Self-pay Self Pay [id number] Unknown [id number] Social History Date Type Detail Facility Tobacco smoking status WVIS Unknown if ever smoked [facility] Start: 1970 Sex Assigned At Female F [facility] Tobacco smoking status NHIS Tobacco smoking consumption unknown [employer] Phone: Start: 1970 Sex Assigned At Not on file [employer] Phone: Start: 07-08-2022 End: 07-25-2022 Exposure to SARS-CoV-2 (event) Not sure [employer] Sex Assigned At Sex Assigned At Bir th [facility] Other Goals Date Patient Goal Desired Activity [...] procedure. All questions were addressed and answered. [facility] Cardiology Clinic Note Chief Complaint: New patient here to establish care. Ref from Dr. Ramos for abnormal echo performed at [facility] last month while inpatient. She was discharged [...] complication, with long-term current use of insulin ([facility]) Essential hypertension Mixed hyperlipidemia Complicated headache syndromes Hyperglycemia OMAR (acute kidney injury) ([facility]) Vision changes Hypomagnesemia Cerebrovascular accident (CVA) due to embolism of precerebral artery ([facility]) Update 09/02/2024: She has had no further [...] of left kidney, CVA (cerebral vascular accident) ([facility]) (2021), Diabetes mellitus ([facility]), and Kidney stone. Surgical History She has [...] 70/30 U-100 I (more content not included)... [facility] 11-01-2024 Note Patient: Asa valle Procedure Information Date/Time: 11/01/24 1030 Procedure: TRANSESOPHAGEAL ECHO (ANGEL) Location: [facility] Vascular Lab Clinical information reviewed: Allergies Meds Physical Exam Airway Mallampati: III TM distance: >3 FB Neck ROM: full Cardiovascular Rhythm: regular Rate: normal Dental Pulmonary Breath sounds clear to auscultation Abdominal Anesthesia Plan Additional Equipment Requests [facility] 09-02-2024 Note [facility] Cardiology Clinic Note Chief Complaint: New patient here to establish care. Ref from Dr. Ramos for abnormal echo performed at [facility] last month while inpatient. She was discharged [...] Asa Thompson Date of : 1970 Room: [facility] Encounter date: 08/06/24 Hospital Day: 4 DATE OF ADMISSION: 08/03/2024 DATE OF DISCHARGE:08/06/2024 DISCHARGE DIAGNOSES Principal Problem: Acute nonintractable headache, unspecified headache type Active Problems: Type 2 diabetes mellitus with neurologic complication, with long-term current use of insulin ([facility]) Essential hypertension Mixed hyperlipidemia Complicated headache syndromes Hyperglycemia OMAR (acute kidney injury) ([facility]) Vision changes Hypomagnesemia Cerebrovascular accident (CVA) due to embolism of precerebral artery ([facility]) Update 09/02/2024: She has had no further [...] , Rfl: met (more content not included)... [facility] 12-27-2022 Evaluation note Encounter Date Diagnosis [...] pyonephritis. Patient follows with urology clinic at [facility] Dec, Solitary kidney, acquired (ICD-10 [...] home and to follow a low-salt diet [employer] Other 09-20-2022 NotePROCEDURE: MARTINE LILLY NEPHROSTMY CATH [...] detailed explanation of the procedure including risks. [place] protocol was observed. Sterile gowns, masks, hats and gloves utilized for maximal sterile barrier. The patient was placed in the prone position on the fluoroscopy table, and the existing left nephroureteral stent and flank were prepped and draped in sterile manner. The stent tubing was noted to be broken with the lumen exposed near the level of the skin. A professional sports scout image demonstrated the distal loop approximating [...] wire. Under fluoroscopic guidance, a new 8 Nepalese x 22 cm nephroureteral stent was advanced over the wire; the distal loop formed in the bladder, but the proximal loop did not form in the renal pelvis. Therefore, this catheter was removed over wire, and a new 8 Nepalese x 24 cm nephroureteral stent was advanced [...] Signed by: Bishnu Alan MD 07/26/22 [facility] NotePROCEDURE: IR CHG NEPHROSTMY CATH PROC [...] detailed explanation of the procedure including risks. [place] protocol was observed. Sterile gowns, masks, hats and gloves utilized for maximal sterile barrier. The patient was placed in the prone position on the fluoroscopy table, and the existing left nephroureteral stent and flank were prepped and draped in sterile manner. The stent tubing was noted to be broken with the lumen exposed near the level of the skin. A professional sports scout image demonstrated the distal loop approximating [...] wire. Under fluoroscopic guidance, a new 8 Nepalese x 22 cm nephroureteral stent was advanced over the wire; the distal loop formed in the bladder, but the proximal loop did not form in the renal pelvis. Therefore, this catheter was removed over wire, and a new 8 Nepalese x 24 cm nephroureteral stent was advanced over the wire. The distal loop formed in the expected position of the bladder, and the proximal loop partially formed in the renal pelvis. Contrast injection confirmed appropriate positioning. The stent was then attached to the skin with a 2-0 monofilament suture. The patient tolerated the procedure well. COMPLICATIONS: None immediately apparent MHPN RIS [id number] History of Present illness Narrative* Paloma Arceo MD - 07/26/2022 1:42 PM EDT [facility] CDU / OBSERVATION ENCOUNTER ATTENDING [...] going to IR this morning for replacement. [place] observation unit for nephrostomy tube placement. Patient reassessed on arrival to the floor. Paloma Arceo MD Attending Emergency Physician * Song Sharif - 07/26/2022 12:50 AM EDT SPIRITUAL CARE DEPARTMENT - [facility] Shift date: 07.25.2022 Shift day: Monday Shift # 2 Room # 10/17 Name: Asa Thompson Jehovah'S Witness: unknown Place of taoist: unknown Referral: Routine Visit Admit Date & Time: 07/25/2022 5:43 PM Assessment: Asa Thompson is a 51 y.o. female in the hospital with pain. Upon entering the room ad writer observes patient in pain and states that she is looking for a nurse to provide pain management. Patient appears to be coping otherwise. Intervention: Rags Laborer introduced self and title as sectionizer Rags Laborer offered space for the patient to express feelings, needs, and concerns and provided a ministry presence. Outcome: Patient requests nursing assistance for pain. Radiologist Chief Of Breast Imaging attempted to follow up with nursing staff. Plan: Chaplains will remain available to offer spiritual and emotional support as needed. . Spiritual Care Department [facility] [phone] 07/25/22 2310 Encounter Summary Service Provided For: [...] and concerns;Venting emotion documented in this encounter[employer]ON [employer] Work Phone: 1(251) 577-480609-16-2022 History of Present illness Narrative* Christine Campa RN - 07/22/2022 4:32 PM EDT Rags Laborer went over all discharge paperwork with patient and Shaq bedside. Patient denies any further questions or concerns at this time. Patient also has a BMP script to get done within 1 week and have results sent to PCP. Rags Laborer also called [facility] pharmacy in [place] and verified E-prescriptions were sent. Patient also [...] Campa RN - 07/22/2022 3:47 PM EDT Rags Laborer was unable to set up follow up appointment for Dr. Chino Dempsey (urologist) on discharge d/tthe office being closed. Rags Laborer explained to the patient that she will [...] Patient : Asa Thompson; 51 y.o. Location: [facility]05 Attending: Livia Cantrell MD Admit Date: 07/18/2022 [...] Date/Time NITRU NEGATIVE 07/20/2022 03:05 PM COLORU Nunn 07/20/2022 03:05 PM PHUR 5.0 07/20/2022 03:05 [...] as outpatient as well, patient lives near [facility] and will likely ask her PCP to get nephrological referral otherwise if she wants she can follow-up in the clinic with us as well. She should get BMP results done in 1 week and results faxed to PCP. Nutrition Please ensure that patient is on a renal diet/TF. Avoid nephrotoxic drugs/contrast exposure. Shahid Do MD [facility] This note is created with the assistance of a speech-recognition program. While intending to generate a document that actually reflects the content of the visit, no guarantees can be provided that every mistake has been identified and corrected by editing. * Urban Noriega MD - 07/22/2022 10:27 AM EDT Images from the original note were not included. [facility] - Progress Note Today's Date and [...] urine cultures: No growth Urine culture from [facility]: E coli, multi-sensitive Patient will need treatment [...] lithotripsy in the future. Infection Control Recommendations [place] Precautions Antimicrobial Stewardship Recommendations Simplification of therapy [...] is a 51-year-old female who presents to [place] [facility] with a chief complaint of left flank pain that started at 4 AM on 07/18/2022. Patient states that the pain is intense and is radiating towards her left groin. Patient denies any fever, burning urination, urgency frequency, vomiting, loose stool, any shortness of breath or chest discomfort. Patient went to [facility] and had a CT imaging done. 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 Urinalysis positive for leukocytes and nitrates and blood. White blood cell count 13.7 and creatinine of 1.45. Patient needed urology evaluation and nephrostomy tube placement . She was transferred to [place]. Urology was consulted. Urology plan for IR [...] Blood and urine cultures: No growth at [facility] Urine culture at [facility] with E coli Patient reports tolerating Cipro [...] Cultures: Urine: 07-18-22: E coli- Multi-sensitive at [facility] 07/18/2022: No growth 07/19/2022: Urinalysis: Turbid, glucose [...] PERCUTANEOUS LEFT 07/19/2022 Noman Mullen MD [facility] SPECIAL PROCEDURES Medications: hydrALAZINE 25 mg Oral [...] the procedure including risks, benefits, and alternatives. [place] protocol was followed. The patient's flank was [...] into the urinary bladder using a 4 Nepalese Kumpe the catheter; the Glidewire was exchanged [...] puncture of the lower pole calyx, 4 Nepalese Kumpe the catheter manipulation and glidewire extension into the urinary bladder. Subsequent images show the nephroureteral stent in satisfactory position. Impression Successful percutaneous left nephroureteral stent placement via lower pole, past a large staghorn calculus, with distal pigtail tip position in the urinary bladder, as above. Findings were discussed with KASH CLAY at 4:09 pm on 07/19/2022. Medical Decision [id number]: Medical Decision Making-Other: Note: Labs, medications, radiologic studies were reviewed with personal review of films Large amounts of data were reviewed Discussed with nursing Staff, equipment planner Infection Control and Prevention measures reviewed All prior entries were reviewed Administer medications as ordered Prognosis: Good Discharge planning reviewed Follow up as outpatient. Thank you for allowing us to participate in the care of this patient. Please call with questions. Urban Noriega MD * Keo Guevara MD - 07/22/2022 7:45 AM EDT Physician Progress Note PATIENT: ASA THOMPSON CSN #: [id number] : 1970 ADMIT DATE: 07/18/2022 3:19 PM [...] Thank you, Judith LUNA,RN, CDI email - [email or web address] [phone] office hours [id number] Options provided: -- Sepsis, [...] were not included. [facility] Internal Medicine Teaching Residency Program Inpatient Daily Progress Note Patient: Asa Thompson Date of : 1970 Acct: [id number] Room: [address] [place] [address]- Admit date: 07/18/2022 Today's date: 07/22/22 Number [...] positive for E. Coli- multi sensitive at [facility] Lactic acid-1.5-2.3 Urology on board-okay to be [...] breath or chest discomfort. 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 Patient needed urology evaluation and nephrostomy tube placement so transferred to the [place] [facility]. Urology consulted plan for IR tomorrow. patient [...] Keo Guevara MD Internal Medicine Resident, PGY-1 [facility]; [place], [place] 07/22/2022, 7:44 AM Associated attestation - Livia Cantrell MD - 07/22/2022 2:02 PM EDT Attending Physician Statement I have discussed the case of Asa Thompson, including pertinent history and exam findings with the resident/fellow/medical student/MISSILE INSPECTOR/PA. I have seen and examined the patient and the trevizo elementsof the encounter have been performed by me. I agree with the assessment, plan and orders as documented by the resident/fellow/medical student/MISSILE INSPECTOR/PA With changes made to the note as [...] been improving Microbiologic data remains negative at [facility] activity Percutaneous nephrostomy tube is draining Discharge planning in progress Livia Cantrell MD 07/22/2022 2:01 PM * TERRY BERGMAN - 07/21/2022 11:50 PM EDT Notified resident at 2345 of patient having increased stools. Requested probiotic to prevent cdiff and also to adjust amount of labs being drawn, awaiting response. * Ltaoya Chatterjee RN - 07/21/2022 3:44 PM EDT [...] Date/Time NITRU NEGATIVE 07/20/2022 03:05 PM COLORU Nunn 07/20/2022 03:05 PM PHUR 5.0 07/20/2022 03:05 [...] 07/21/2022 1:36 PM EDT Physical Therapy Facility/Department: [address] [place] Physical Therapy Initial Assessment Name: [...] Ambulation Assistance: Independent Transfer Assistance: Independent Active Sfdc Technical Architect: Yes Mode of Transportation: [facility] Occupation: Unemployed Leisure & Hobbies: Everything [...] 07/21/2022 12:07 PM EDT Occupational Therapy Facility/Department: [address] [place] Occupational Therapy Initial Assessment Name: [...] Ambulation Assistance: Independent Transfer Assistance: Independent Active Sfdc Technical Architect: Yes Mode of Transportation: SUV Occupation: Unemployed [...] were not included. [facility] - Progress Note Today's Date and [...] up to a week. Infection Control Recommendations [place] Precautions Antimicrobial Stewardship Recommendations Simplification of therapy [...] is a 51-year-old female who presents to [facility] with a chief complaint of left flank pain that started at 4 AM on 07/18/2022. Patient states that the pain is intense and is radiating towards her left groin. Patient denies any fever, burning urination, urgency frequency, vomiting, loose stool, any shortness of breath or chest discomfort. Patient went to [facility] and had a CT imaging done. 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 Urinalysis positive for leukocytes and nitrates and blood. White blood cell count 13.7 and creatinine of 1.45. Patient needed urology evaluation and nephrostomy tube placement . She was transferred to [place]. Urology was consulted. Urology plan for IR [...] hyperglycemia, without long-term current use of insulin ([facility]) Past Surgical History: Past Surgical History: Procedure Laterality Date IR NEPHROSTOMY PERCUTANEOUS LEFT 07/19/2022 IR NEPHROSTOMY PERCUTANEOUS LEFT 07/19/2022 [facility]ullen [facility] Medications: insulin lispro 0-16 [...] the procedure including risks, benefits, and alternatives. [place] protocol was followed. The patient's flank was [...] into the urinary bladder using a 4 Nepalese Kumpe the catheter; the Glidewire was exchanged [...] puncture of the lower pole calyx, 4 Nepalese Kumpe the catheter manipulation and glidewire extension into the urinary bladder. Subsequent images show the nephroureteral stent in satisfactory position. Impression Successful percutaneous left nephroureteral stent placement via lower pole, past a large staghorn calculus, with distal pigtail tip position in the urinary bladder, as above. Findings were discussed with KASH CLAY at 4:09 pm on 07/19/2022. Medical Decision [id number]: Medical Decision Making-Other: Note: Labs, medications, radiologic studies were reviewed with personal review of films Large amounts of data were reviewed Discussed with nursing Staff, equipment planner Infection Control and Prevention measures reviewed [...] were not included. [facility] Internal Medicine Teaching Residency Program Inpatient Daily Progress Note Patient: Asa Thompson Date of : 1970 Acct: [id number] Room: [facility]05-01 Admit date: 07/18/2022 Today's date: 07/21/22 Number [...] breath or chest discomfort. 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 Patient needed urology evaluation and nephrostomy tube placement so transferred to the [place]. Urology consulted plan for IR tomorrow. patient [...] time PT/OT/SW-consulted we will follow-up Discharge Planning: airborne weapons technical manager consulted Phillip Garrett MD Internal Medicine Resident, PGY-1 [facility]; [place], [place] 07/21/2022, 8:22 AM Associated attestation - Livia Cantrell MD - 07/21/2022 8:43 PM EDT Attending Physician Statement I have discussed the case of Asa Thompson, including pertinent history and exam findings with the resident/fellow/medical student/MISSILE INSPECTOR/PA. I have seen and examined the patient and the trevizo elementsof the encounter have been performed by me. I agree with the assessment, plan and orders as documented by the resident/fellow/medical student/MISSILE INSPECTOR/PA With changes made to the note as [...] 11:26 PM EDT SPIRITUAL CARE DEPARTMENT - [facility] PROGRESS NOTE Shift date: 07/20/22 Shift day: Monday Shift # 2 Room # 0541/0541-01 Name: Asa Thompson Jehovah'S Witness: Place of taoist: Referral: Routine Visit Admit Date & Time: 07/18/2022 3:19 PM Assessment: Asa Thompson is a 51 y.o. female Intervention: Rags Laborer introduced self and title as sectionizer. Patient did not appear to mind sectionizer presence. Rags Laborer offered space for patient to express feelings, needs, and concerns and provided a ministry presence. Patient appeared to be resting and coping. Outcome: While gonzález/spirituality were not discussed, patient appeared receptive to sectionizer presence.3 Plan: Chaplains will remain available to offer spiritual and emotional support as needed. . Spiritual Care Department [facility] [phone] * TERRY BERGMAN - 07/20/2022 9:30 PM EDT Orders received for patients high BP * TERRY BERGMAN - 07/20/2022 9:08 PM EDT Notified extraction operator resident for internal medicine of patients current [...] were not included. [facility] Internal Medicine Teaching Residency Program Inpatient Daily Progress Note Patient: Asa Thompson Date of : 1970 Acct: [id number] Room: [address] [place] [address] Admit date: 07/18/2022 Today's date: 07/20/22 Number of days in the hospital: 2 SUBJECTIVE Admitting Diagnosis: Calculous pyelonephritis CC: Left flank pain Pt examined at bedside. Chart & results reviewed. No acute event overnight Patient remained afebrile hemodynamically stable Pain better controlled with pain meds IR guided left percutaneous nephrostomy tube placement yesterday evening-output 500 so far WBC-12.3-7.1-10.2 Creatinine 1.65-1.71-2.11 Ucuzox-855-337-corrected sodium 133 Lactic acid-3.8 Glucose-416 ROS: Constitutional: [...] breath or chest discomfort. 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 Patient needed urology evaluation and nephrostomy tube placement so transferred to the [place]. Urology consulted plan for IR tomorrow. patient [...] BID Continuous Infusions: sodium chloride Stopped (07/19/22 0989) dextrose sodium chloride 100 mL/hr at 07/20/22 0011 PRN Medicationssodium chloride flush, 5-40 mL, PRN [...] time PT/OT/SW-consulted we will follow-up Discharge Planning: airborne weapons technical manager consulted Keo Guevara MD Internal Medicine Resident, PGY-1 [facility]; [place], [place] 07/20/2022, 8:06 AM Associated attestation - Livia Cantrell MD - 07/20/2022 7:52 PM EDT Attending Physician Statement I have discussed the case of Asa Thompson, including pertinent history and exam findings with the resident/fellow/medical student/MISSILE INSPECTOR/PA. I have seen and examined the patient and the trevizo elementsof the encounter have been performed by me. I agree with the assessment, plan and orders as documented by the resident/fellow/medical student/MISSILE INSPECTOR/PA With changes made to the note as [...] cysto, URS, HLL 7 years prior in [place], [place] with Dr. Harrison Recurrent UTIs, 4 [...] score is now 5.12. Per sepsis protocol, ad writer ordered lactic and blood cultures. Provider notified. * Alexsandra Mckinley RN - 07/20/2022 3:13 AM EDT Rags Laborer notified provider of infection concerns. Patient's WBC [...] original note were not included. Occupational Therapy [facility] [place] Occupational Therapy Not Seen Note DATE: 07/19/2022 [...] cysto, URS, HLL 7 years prior in [place], [place] with Dr. Harrison Recurrent UTIs, 4 [...] were not included. [facility] Internal Medicine Teaching Residency Program Inpatient Daily Progress Note Patient: Asa Thompson Date of : 1970 Acct: [id number] Room: [address] [place] [address] Admit date: 07/18/2022 Today's date: 07/19/22 Number [...] breath or chest discomfort. 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 Patient needed urology evaluation and nephrostomy tube placement so transferred to the [place]. Urology consulted plan for IR tomorrow. patient [...] time PT/OT/SW-consulted we will follow-up Discharge Planning: airborne weapons technical manager consulted Keo Guevara MD Internal Medicine Resident, PGY-1 [facility]; [place], [place] 07/19/2022, 6:40 AM Associated attestation - Livia Cantrell MD - 07/19/2022 7:45 PM EDT Attending Physician Statement I have discussed the case of Asa Thompson, including pertinent history and exam findings with the resident/fellow/medical student/MISSILE INSPECTOR/PA. I have seen and examined the patient and the trevizo elementsof the encounter have been performed by me. I agree with the assessment, plan and orders as documented by the resident/fellow/medical student/MISSILE INSPECTOR/PA With changes made to the note as [...] [N10] Calculous pyelonephritis [N20.0]. See H&P of admitting/consultants intern resident for more details. Transferred from [facility] Patient came in due to left [...] Brooklynn Ferrari MD Department of Internal Medicine [facility], [place] 07/19/2022, 12:39 AM documented [facility] Work Phone: 1(929) 214-768309-16-2022 Hospital Discharge instructions* Discharge Instructions* Keo Guevara MD - 07/22/2022 12:18 PM EDT You were admitted for staghorn renal calculi and your urine culture from [facility] was positive for Ecoli. Please take ciprofloxacin [...] Primary Emergency Contact: arian thompson Relation: Child Bottom Stainer needed? No Past Surgical History: Past Surgical History: Procedure Laterality Date IR NEPHROSTOMY PERCUTANEOUS LEFT 07/19/2022 IR NEPHROSTOMY PERCUTANEOUS LEFT 07/19/2022 Noman Mullen MD [facility] SPECIAL PROCEDURES Immunization History: There is no immunization history on file for this patient. Active Problems: Patient Active Problem List Diagnosis Code Calculous pyelonephritis N20.0 OMAR (acute kidney injury) ([facility]) N17.9 Type 2 diabetes mellitus, with long-term current use of insulin ([facility]) E11.9, Z79.4 Leukocytosis D72.829 Hypothyroidism E03.9 Depression F32.A Hypertension I10 History of coronary artery disease Z86.79 Acute pyelonephritis N10 Left renal atrophy N26.1 Kidney stone N20.0 Sepsis with acute renal failure without septic shock ([facility]) A41.9, R65.20, N17.9 History of penicillin allergy [...] MENTAL STATUS:} IV Access: { TIMO IV ACCESS:261069922} Nursing Mobility/ADLs: Walking {CHP DME ADLs:694203936} Transfer {CHP DME ADLs:961511390} Bathing {CHP DME ADLs:783803134} Dressing {CHP DME ADLs:142951108} Toileting {CHP DME ADLs:060814323} Feeding {CHP DME ADLs:573691627} Single Pointed Operator {CHP DME ADLs:637970844} Med Delivery { TIMO MED Delivery:754433020} Wound Care Documentation and Therapy: Elimination: Continence: Bowel: {YES / NO:} Bladder: {YES / NO:} Urinary Catheter: {Urinary Catheter:167429703} Colostomy/Ileostomy/Ileal Conduit: {YES / NO:} Date of Last BM: Intake/Output Summary (Last 24 hours) at 07/22/2022 1349 Last data filed at 07/22/2022 0813 Gross per 24 hour Intake 1594.2 ml Output 3875 ml Net -2280.8 ml I/O last 3 completed shifts: In: 4236.1 [P.O.:580; I.V.:3350.1; IV Piggyback:306] Out: 6520 [Urine:6520] Safety Concerns: { TIMO Safety Concerns:376860484} Impairments/Disabilities: { TIMO Impairments/Disabilities:630071788} Nutrition Therapy: Current Nutrition Therapy: { TIMO Diet List:323077430} Routes of Feeding: {[facility] DME Other Feedings:156089029} Liquids: {[facility] liquid thickness:77141} Daily Fluid Restriction: {[facility] DME Yes amt example:247641097} Last Modified Barium Swallow with Video (Video Swallowing Test): {Done Not Done Date:} Treatments at the Time of Hospital Discharge: Respiratory Treatments: Oxygen Therapy: {Therapy; copd oxygen:95480} Ventilator: { CC Vent List:296647373} Rehab Therapies: {THERAPEUTIC INTERVENTION:7396300984} Weight Bearing Status/Restrictions: {[facility] Weight Bearin} Other Medical Equipment (for information only, NOT a DME order): {EQUIPMENT:006147918} Other Treatments: Patient's personal belongings (please select all that are sent with patient): {[facility] DME Belongings:222431629} RN SIGNATURE: {Esignature:356595464} CASE MANAGEMENT/SOCIAL WORK SECTION Inpatient Status Date: Readmission Risk Assessment Score: Readmission Risk Risk of Unplanned Readmission: 19 Discharging to Facility/ Agency Name: Address: Phone: Fax: Dialysis Facility (if applicable) Name: Address: Dialysis Schedule: Phone: Fax: Board Filler/E/M Engineer signature: {Esignature:999467550} PHYSICIAN SECTION Prognosis: {Prognosis:1405120214} Condition at Discharge: { Patient Condition:879820175} Rehab Potential (if transferring to Rehab): {Prognosis:9482371007} Recommended Labs or Other Treatments After Discharge: Physician Certification: I certify the above information and transfer of Asa Thompson is necessary for the continuing treatment of the diagnosis listed and that she requires {Admit to Appropriate Level of Care:31698} for {GREATER/LESS:665349629} 30 days. Update Admission H&P: {CHP DME Changes in HandP:536017205} PHYSICIAN SIGNATURE: {Esignature:482458785} documented in this encounterBON [employer] Phone: 1(684) 872-133009-13-2022 NotePROCEDURE: PERCUTANEOUS ANTEGRADE PYELOGRAM LEFT PERCUTANEOUS NEPHROURETERAL [...] the procedure including risks, benefits, and alternatives. [place] protocol was followed. The patient's flank was [...] into the urinary bladder using a 4 Nepalese Kumpe the catheter; the Glidewire was exchanged [...] puncture of the lower pole calyx, 4 Nepalese Kumpe the catheter manipulation and glidewire extension [...] Signed by: Noman Mullen MD 07/19/22 [facility]-2022 NotePROCEDURE: PERCUTANEOUS ANTEGRADE PYELOGRAM LEFT PERCUTANEOUS [...] the procedure including risks, benefits, and alternatives. [place] protocol was followed. The patient's flank was [...] into the urinary bladder using a 4 Nepalese Kumpe the catheter; the Glidewire was exchanged [...] puncture of the lower pole calyx, 4 Nepalese Kumpe the catheter manipulation and glidewire extension into the urinary bladder. Subsequent images show the nephroureteral stent in satisfactory position. [facility] RIS [id number] NoteHNO ID: [id number] Author: Liliana Avila, PhD Service: ? Author Type: Physician Type: Progress Notes Filed: 03/11/2022 3:32 PM Note Text: [facility] Progress Note 03/11/2022 Billing code: 22169/[place] 3:10PM - I called the patient to [...] her evaluation/medical records. Will send her a GoSave message with instructions. Liliana Avila, PhD Clinical Health PsychologistSelect Medical [facility] [place]01-20-2022 NoteHNO ID: [id number] Author: Jeannine Tamez, PhD Service: ? Author Type: Psychologist Type: Progress Notes Filed: 11/25/2021 8:38 AM Note Text: [facility] Patient no-showed appointment despite phone call and HIPAA compliant VM. Patient given instructions on rescheduling. Jeannine Tamez, PhD PsychologistSelect Medical [facility], [place]09-03-2021 NoteHNO ID: [id number] Author: Ghazal Doyle RD Service: ? Author [...] meal plan and stated understanding. Ghazal Doyle RDSelect Medical [facility] [place]08-31-2021 NoteHNO ID: [id number] Author: Ghazla Doyle RD Service: ? Author Type: Registered Dietitian Type: Progress Notes Filed: 07/06/2021 11:52 AM Note Text: Telephone call placed to patient at 11:49 AM at [phone]. Received forwarded My Chart message from Abraham Pacheco RN regarding hypoglycemia on liquid diet phase. No answer . Left message with contact telephone number [phone] and instructions to communicate with this provider via GoSave when able. Ghazal Doyle RDSelect Medical [facility], [place]08-16-2021 NoteHNO ID: [id number] Author: Quincy Rodriguez MD Service: ? Author [...] AND Bariatric Surgery Fellow Bariatric AND Metabolic [facility] STAFF NOTE I have seen and evaluated [...] counseling and educating the patient/family/caregiver. Quincy Rodriguez, [facility]06-04-2021 NoteHNO ID: [id number] Author: Jeannine Tamez, PhD Service: ? Author Type: Psychologist Type: Progress Notes Filed: 04/09/2021 2:44 PM Note Text: [facility] Receipt of Outside Records Patient: Asa Thompson Date: 04/09/2021 Received records from patient's physician, Garry Ramos MD of [facility] (Address: [address] [place] [address]; ; ). Asa is off of all psychiatric meds and is stable for gastric bypass surgery. These records have been sent to scanning. Plan: *All requirements have been met Jeannine Tamez, PhD PsychologistSelect Medical [facility] [place]05-26-2021 NoteHNO ID: [id number] Author: Ghazal Doyle RD Service: ? Author Type: Registered Dietitian Type: Progress Notes Filed: 03/31/2021 9:29 AM Note Text: [facility] Nutrition Therapy: Virtual Consult ? Re-assessment This visit was performed virtually due to the COVID-19 epidemic as an effort to protect patients and minimize exposure. Consent from patient received to conduct visit virtually. This Team Access Model visit is a virtual encounter. It required patient-provider interaction for the medical decision making as documented below. This visit completed via [employer] as Zoom did not connect PROGRESS: [...] - met 6. Start researching post-op vitamins: [employer], [employer], or [employer]-specific websites- - met Pre-op goal weight:?238 lbs [...] Diagnosis Date - Anxiety - Bipolar disorder ([facility]) - CAD (coronary artery disease) 10/06/2010 - DM (diabetes mellitus) ([facility]) - Hyperlipidemia - Hypothyroidism - Nephrolithiasis - Schizophrenia ([facility]) - UTI (urinary tract infection) PAST SURGICAL HISTORY Procedure Laterality Date - CARDIAC CATH 10/06/2010 Moderate, nonhemodynamically significant stenosis of RCA (by FFR) - HYSTERECTOMY HX - PAST SURGICAL HISTORY OF 03/2016 urinary stent - TONSILLECTOMY HX ANTHROPOMETRICS Height per patient: 63? Weight per patient: 236 lbs# Most recent height and weight per [facility] Height: Last 1 Encounter Ht Readings: Date: [...] [facility] He[facility] (more content not included)... [facility]* Diagnosis Calculous pyelonephritis- Primary Kidney stone [...] of non-steroidal anti-inflammatories documented in this encounter [employer] Phone: evaluation note* Diagnosis Nephrostomy tube displaced (HCC)- Primary Urinary complications Nephrostomy complication (HCC) documented in this encounter [employer] Phone: History general Narrative - Reported* Type Description Date Medical History Hypercholesterolemia Medical History DM Medical History Hypothyroid Medical History diabetic neuropathy Surgical History ALIZA BSO 2000 Surgical History Heart catherization 2010 Surgical History kidney stone Surgical History left kidney removed 10/26/2022 Hospitalization History See past surgical histor y Hospitalization History Heart Event 2010 [facility] Other Hospital Discharge instructions* Attachments The following attachments cannot be sent through Care Everywhere. * Nephrostomy Tube Care (Belizean) documented in this encounterBON [employer] Work Phone: Assessments No Assessments Information Available [...] W PHARMACOLOGICAL INTERVENTION Robson, Christi, DO [address] [address] Referral ID Status Reason Start Date Expiration Date Visits Re quested Visits Authorized [id number] Open 08/03/2022 08/03/2023 1 1 Additional Source Comments INFORMATION SOURCE (unrecogn ized section and content) DATE CREATED AUTHOR 04/03/2021 [facility] DATE CREATED AUTHOR AUTHOR'S ORGANIZ ATION 03/15/2022 [facility] DATE CREATED AUTHOR AUTHOR'S ORGANIZ ATION 08/09/2022 [facility] DATE CREATED AUTHOR AUTHOR'S ORGANIZ ATION 08/11/2022 [facility] DATE CREATED AUTHOR AUTHOR'S ORGANIZ ATION 03/17/2023 [facility] DATE CREATED AUTHOR AUTHOR'S ORGANIZ ATION 08/07/2024 [facility] DATE CREATED AUTHOR AUTHOR'S ORGANIZ ATION 11/02/2024 [facility] Reason for Visit (unrecogniz ed section and content) Reason Comments Flank Pain Specialty Diagnoses / Procedures Referred By Serina bonilla Referred To Contact Diagnoses Kidney stone Acute pyelonephritis Calculous pyelonephritis Livia Cantrell MD [address] [address] [facility] [address] [place] [address] Referral ID Status Reason Start Date Expiration Date Visits Re quested Visits Authorized [id number] 1 1 Reason Comments Other nephrostamy tube got pulled. tub is broken and leaking urine. not able to gett it to stop leaking Specialty Diagnoses / Procedures Referred By Serina bonilla Referred To Contact Diagnoses Nephrostomy tube displaced (HCC) Nephrostomy complication (HCC) Paloma Arceo MD [address] [place] [address] [facility] [address] [place] [address] Referral ID Status Reason Start Date Expiration Date Visits Re quested Visits Authorized [id number] 1 1 Ordered Prescriptions (unrec ognized section [...]
Care Teams (unrecognized sec tion and content) Skiver Machine Operator Relationship Specialty Start Date End Date Garry Ramos MD [address] [place] [address] [phone] PCP - [facility] 07/22/22 Skiver Machine Operator Relationship Specialty Start Date End Date Garry Ramos MD [address] [place] [address] [phone] PCP - [facility] 07/22/22 FOR RECORDS PERTAINING TO [...] BE BASED ON THE PRIMARY CLINICAL RECORDS. [facility] [employer] [facility]. provides no warranty or guarantee of the accuracy or completeness of information in this document.
--- NOTE | 2025-08-25 14:30 | XR_ITS ---
The [address] [address] Patient Name: ASA CHEN MRN: [id number] date: 1970 Sex: F Assigned Patient Location: ER Current Patient Location: ER Accession/Order Number: [id number] Exam Date: 08/25/2025 14:33 Report Date: 08/25/2025 15:20 At the request of: [facility] Procedure: XR chest 1V PORTABLE AP ERECT CHEST 1835 hours CLINICAL HISTORY: SOB COMPARISON: 03/15/2021 This assessment is slightly limited by body habitus. The heart is within normal limits. There is no vascular congestion. No developing consolidation is seen. There is no effusion or pneumothorax. The osseous structures are intact. There is endplate spurring at the spine. XR/XR chest 1V IMPRESSION: NO ACUTE FINDINGS Impression dictated by: Brittanie Ocampo M.D. 08/25/2025 3:20 PM Dictation Location: [place] [address] Electronically authenticated by: [id number] Y Date: 08/25/2025 15:20
--- NOTE | 2025-08-25 14:31 | ECG_ITS ---
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 Measurements Intervals [place] Rate: 97 P: 67 AR: 144 QRS: 43 QRSD: 72 T: 29 QT: 356 QTc: 410 Interpretive Statements 1100 Sinus rhythm 3434 Septal myocardial infarction, age undetermined 8102 Low QRS voltage in chest leads 9150 abnormal ECG Compared to ECG 12/23/2020 07:52:22 Low QRS voltage now present Myocardial infarct finding still present Electronically Signed On 08-25-2025 18:03:55 EDT by VERONIQUE HAYDEN M.D.
--- NOTE | 2025-08-25 15:14 | ED.GENADUL1 ---
HPI HPI - General Adult General Chief complaint: Recheck/Abnormal Lab/Rx Stated complaint: ABNORMAL LABS SOB SENT BY DR VALLEJO Time Seen by Provider: 08/25/25 14:20 Source: patient Mode of arrival: walk-in Limitations: no limitations History of Present Illness HPI narrative: Patient is a 54-year-old female that presents to the emergency department at the recommendation of her primary care physician, Dr. Vallejo, after she had labs done today and had an elevated troponin. She states that she has been short of breath for couple of days, since Monday. She denies any lung disease. She states she is also been lightheaded and dizzy. No sick contacts. No cough, runny nose, sore throat, fever, night sweats, or chills. She said she has been fatigued for months. She does take aspirin 81 mg daily. Monday she did have some chest pain when she was having some shortness of breath when she was at her [employer] game. This was relieved with sitting. She did see Dr. Vallejo today who ordered labs and her troponin was 194. Related Data Home Medications ?Medication ?Instructions ?Recorded ?Confirmed gabapentin 600 mg tablet 1,200 mg PO BID 05/02/24 08/25/25 hydralazine 25 mg tablet 25 mg PO TID 05/02/24 08/25/25 hydrochlorothiazide 25 mg tablet 25 mg PO DAILY 05/02/24 08/25/25 insulin human U-100 NPH-regulr 80 unit subcut QAM 05/02/24 08/25/25 70-30 mix 100 unit/mL subcutaneous susp (Humulin 70/30 U-100 Insulin) levothyroxine 125 mcg tablet 250 mcg PO DAILY 05/02/24 08/25/25 aspirin 81 mg capsule 81 mg PO DAILY 08/25/25 08/25/25 cholecalciferol (vitamin D3) 50 50 mcg PO DAILY 08/25/25 08/25/25 mcg (2,000 unit) capsule clopidogrel 75 mg tablet (Plavix) 75 mg PO DAILY 08/25/25 08/25/25 Allergies Allergy/AdvReac Type Severity Reaction Status Date / Time morphine Allergy Hives Verified 08/25/25 13:38 Penicillins Allergy Hives Verified 08/25/25 13:38 ketoralac Allergy Hives Uncoded 10/20/25 13:38 Opioid HPI Opioid Management Most Recent Opioid Data: Last Pain Scale 3 05/03/24, 18:00 Last ORT Total Score 2 05/02/24, 23:25 Last ORT Risk Category Low Risk 05/02/24, 23:25 Review of Systems ROS Status of ROS 10 or more systems reviewed and unremarkable except as noted in history and below PFSH PFSH Medical History (Updated 08/25/25 @ 17:47 by TAY Poole) Acute renal failure ?N17.9 - Acute kidney failure, unspecified (ICD-10) Acute kidney injury ?N17.9 - Acute kidney failure, unspecified (ICD-10) Neuropathy ?G62.9 - Polyneuropathy, unspecified (ICD-10) Diabetes ?E11.9 - Type 2 diabetes mellitus without complications (ICD-10) Bipolar 1 disorder ?F31.9 - Bipolar disorder, unspecified (ICD-10) Surgical History (Updated 05/02/24 @ 23:46 by Lisa Cordon) History of nephrectomy, left ?Z90.5 - Acquired absence of kidney (ICD-10) H/O: hysterectomy ?Z90.710 - Acquired absence of both cervix and uterus (ICD-10) Social History (Updated 05/02/24 @ 23:44 by Lisa Cordon) Within the past year, how often did you have a drink containing alcohol: never Within the past year, how often did you have six or more drinks on one occasion: never Score interpretation: A score less than 3 is consistent with normal alcohol consumption. Smoking status: Never smoker Non-prescribed substance use: denies use Previous occupational history: Unemployed Highest level of school completed/degree received: 9th grade Are you now , , , , never or living with a partner: In a typical week, how many times do you talk on the telephone with family, friends, or neighbors: 3 or more times per week How often do you get together with friends or relatives: 3 or more times per week Little interest or pleasure in doing things: not at all Feeling down, depressed, or hopeless: not at all Feel stressed/tense/nervous/anxious/difficulty sleeping: not at all Do you think of yourself as: straight/heterosexual Gender Identity: female Exam Narrative Exam Narrative: General: No distress, age-appropriate Skin: Warm, dry, no pallor. No rash. Head: Normocephalic, atraumatic. Neck: Supple, non-tender. Eye: Pupils are equal, round and EOMI. No scleral icterus. Ears, Nose, Mouth, and Throat: No nasal mucosal hypertrophy. Oral mucosa is moist, no posterior oropharynx erythema, uvula is mid-line Cardiovascular: Regular Rate and Rhythm without murmur, gallop or rub. Respiratory: No accessory muscle use or respiratory distress. Lungs are clear to auscultation, no wheezing, rales or rhonchi on the right, on the left there are crackles at the posterior left base Chest Wall: no tenderness Back: No midline thoracic or lumbar vertebral tenderness. Musculoskeletal: Full ROM of all extremities, no calf or popliteal tenderness GI: Abdomen is soft, non-distended, non tender to palpation. No masses appreciated. No rebound, guarding, or rigidity noted. Neurological: A&O x4. No cranial nerve dysfunction observed. No truncal ataxia. Moves all extremities. Sensation intact. Psychiatric: Cooperative and interactive. Normal mood and affect. Constitutional Vital Signs, click to edit/add: Last Vital Signs Temp 98.5 F 08/25/25 13:34 Pulse 95 H 08/25/25 16:10 Resp 18 08/25/25 16:10 BP 168/80 H 08/25/25 16:53 Pulse Ox 98 08/25/25 14:00 O2 Del Method Room Air 08/25/25 13:34 Documenting provider has reviewed patient's vital signs: yes Course Vital Signs Vital signs: Vital Signs Temperature 98.5 F 08/25/25 13:34 Pulse Rate 100 H 08/25/25 13:34 Respiratory Rate 18 08/25/25 13:34 Blood Pressure 180/83 H 08/25/25 13:34 Pulse Oximetry 99 08/25/25 13:34 Oxygen Delivery Method Room Air 08/25/25 13:34 Temperature 98.5 F 08/25/25 13:34 Pulse Rate 95 H 08/25/25 16:10 Respiratory Rate 18 08/25/25 16:10 Blood Pressure 168/80 H 08/25/25 16:53 Pulse Oximetry 98 08/25/25 14:00 Oxygen Delivery Method Room Air 08/25/25 13:34 Medical Decision Making MDM Narrative Medical decision making narrative: This is a 54-year-old female with PMH HTN, TIA, Hypothyroid, DMT2 with 3 days of shortness of breath that presented to the ER at the recommendation of her PCP, Dr. Vallejo, after he evaluated her today and ordered labs. Her troponin was 194 and she was contacted and referred here for further evaluation and management. She has also been lightheaded, dizzy but denies cough, congestion, runny nose, fever, night sweats, or chills. She does report fatigue that is been present for months. She denies any recent surgery, history of PE or DVT, hemoptysis, hormonal use, or lower extremity edema. She has had a previous Heart cath in the past but denies stents. She does take ASA 81mg/ Plavix daily. After her last heart cath years ago she states she did not ever see a director oracle database. On arrival patient is in no distress, does report shortness of breath but can speak in full sentences. 99% O2 saturation on room air afebrile at 98.5. Blood pressure is hypertensive at 180/83. Heart rate is at 100. IV placed, last troponin ordered about 3 hours ago, repeat troponin ordered. CTA chest ordered. EKG on arrival reveals heart rate of 97, sinus rhythm, no ST elevation. Lab reviewed that were taken around 12 PM today CBC: No leukocytosis, WBC 7.5, no anemia Hgb 12.6 BMP: BUN/creatinine 22/1.19 BNP: 556 Chest x-ray no effusion, no consolidation, no vascular congestion CTA Chest: Negative for PE or other acute abnormalities. Similar right middle lobe nodule. NSTEMI - Trop 194, repeat at 3 hours 156 - EKG no ST elevation, NSR - Cont cardiac monitoring - I did call Dr. Noyola, hospitalist here who recommended cardiology consult and transfer to [facility]. I spoke with Dr. Cee, director oracle database at [facility] who will see patient when transferred there. We can start patient on heparin drip. Weight-based dosing form filled out as patient is morbidly obese, faxed to pharmacy. - Hospitalist paged for acceptance to [facility], Dr Jordan spoke with Hospitalist Dr Last who did accept patient to [facility]. I did speak with patient who is aware of lab and radiology findings and need for transfer. Patient was transferred to [facility] via EMS for further evaluation and treatment in fair condition. Patient's vitals remained stable during her emergency room course here. Differential Diagnosis Differential Diagnosis: NSTEMI, PE, unstable angina, demand ischemia Lab Data Lab results reviewed: Yes I reviewed the patient's lab results Labs: Lab Results 08/25/25 Range/Units 15:25 PT 10.0 (9.0-11.6) sec INR 0.94 APTT 24.9 (22.3-36.2) sec Troponin I High Sens 156.9 H* (4.0-51.3) pg/mL Imaging Data CT scan - chest: Attestation: I have reviewed the pertinent imaging results. Radiologist's impression: ITS Impressions Chest X-Ray 08/25/25 14:30 IMPRESSION: NO ACUTE FINDINGS Impression dictated by: Brittanie Ocampo M.D. 08/25/2025 3:20 PM Dictation Location: [place] [address] Electronically authenticated by: [id number] Y Date: 08/25/2025 15:20 Chest CTA 08/25/25 15:40 IMPRESSION: NO CT EVIDENCE OF PULMONARY EMBOLISM. SIMILAR RIGHT MIDDLE LOBE NODULE. NO ACUTE INTRATHORACIC FINDINGS. Impression dictated by: Brittanie Ocampo M.D. 08/25/2025 3:54 PM Dictation [facility] TravelWEST[facility] STATE HOSPITALFast [facility] Diagnostics Electronically authenticated by: [id number] Y Date: 08/25/2025 15:54 ECG Data Attestation: ?I have reviewed the pertinent ECG results. Discharge Plan Discharge Chief Complaint: Recheck/Abnormal Lab/Rx Clinical Impression: Non-ST elevation [place] (NSTEMI) Patient Disposition: [facility] Time of Disposition Decision: 17:46 Discharge Location: [facility] Condition: Fair Mode of Transportation: EMS
--- NOTE | 2025-08-25 15:40 | CT_ITS ---
The [address] [address] Patient Name: ASA CHEN MRN: [id number] date: 1970 Sex: F Assigned Patient Location: ER Current Patient Location: ED.MAIN Accession/Order Number: [id number] Exam Date: 08/25/2025 15:30 Report Date: 08/25/2025 15:54 At the request of: [facility] Procedure: CT angio chest CT PULMONARY ANGIOGRAM WITH CONTRAST CLINICAL HISTORY: SOB x 3 days COMPARISON: None TECHNIQUE: Spiral images were obtained through the chest following intravenous administration of 100 mL of Omnipaque 300. Images were reviewed using both narrow and wide window settings. Sagittal, coronal and 3 D volume-rendered reconstructions were performed and reviewed. This CT exam was performed using one or more following dose reduction techniques: Automated exposure control, adjustment of the mA and/or kV according to patient size, or use of iterative reconstruction technique. FINDINGS: The heart is top normal in size. There is no pericardial effusion. There is coronary artery disease. No aortic aneurysm or dissection is seen. There is adequate opacification of the pulmonary arteries. Atherosclerotic plaque is visualized at the aortic arch and great vessels. No emboli are identified. No pathologic lymphadenopathy is seen. Endplate spurring is noted at the spine. There is minimal basilar atelectasis or scarring. There is no consolidation, effusion or pneumothorax. A 5 mm nodule is visualized at the right middle lobe. This was also present on the CT abdomen from December 2023. Limited cuts through the upper abdomen show moderate food debris within the stomach. CT/CT angio chest IMPRESSION: NO CT EVIDENCE OF PULMONARY EMBOLISM. SIMILAR RIGHT MIDDLE LOBE NODULE. NO ACUTE INTRATHORACIC FINDINGS. Impression dictated by: Brittanie Ocampo M.D. 08/25/2025 3:54 PM Dictation Location: [place] [address] Electronically authenticated by: [id number] Y Date: 08/25/2025 15:54
[2025-08-25 17:26] LABS: INR 0.94; Partial Thromboplastin Time 24.9 sec (22.3-36.2); Prothrombin Time 10.0 sec (9.0-11.6)
--- NOTE | 2025-08-25 18:00 | PC.NURSE ---
This nurse entered patient room after patient was e business consultant light Pt states ya, how much longer am I going to be here? This nurse was aware of patients care plan and knew that patient had been feeling uneasy about the treatment plan regardless This nurse asked the patient if she was feeling anxious about being transferred to [facility] Pt replied This bed is hurting my damn back, I don't want to be here any longer. This damn IV in my arm hasn't done a damn thing and I am ready to go This nurse informed the patient that our pathology secretary/transcriptionist had secured her a room at [facility] but had to set up ambulance transport to which patient adamantly replied no Pt again spoke about the IV and how she could take it out and her would be driving her to the hospital pt was adamant that she would not be getting into an ambulance This nurse explained the importance of ambulance transfer and reassured patient I would discuss this with the patient This was discussed with TAY Goodrich as well as Dr. Jordan who stated he would speak with patient further
[2025-08-25] MEDS: HEPARIN SODIUM (PORCINE) 5,000 UNIT/ML VIAL 4000 UNIT IV (18:45)
[2025-08-25] MEDS: HEPARIN SODIUM,PORCINE/D5W 25,000 UNIT/500 ML IV.SOLN 18 UNIT IV (18:46)
[2025-08-25] MEDS: MIDAZOLAM HCL 2 MG/2 ML VIAL IV (18:47)
--- NOTE | 2025-08-25 20:39 | PC.NURSE ---
Report to [facility] [place]. Report to [facility] crew. Care relinquished. Pt OTD with EMS crew.
== END 2025-08-25 20:50 | disposition short-term general hospital (02) ==
PROVIDERS: Physician Assistant; Emergency Provider Emergency Medicine; PCP Family Medicine
DX: I21.4 Non-ST elevation (NSTEMI) myocardial infarction (principal); R07.9 Chest pain, unspecified; R42 Dizziness and giddiness; Z79.82 Long term (current) use of aspirin; I10 Essential (primary) hypertension; E03.9 Hypothyroidism, unspecified; E11.9 Type 2 diabetes mellitus without complications; Z86.73 Personal history of transient ischemic attack (TIA), and cerebral infarction without residual deficits; R53.83 Other fatigue; Z79.02 Long term (current) use of antithrombotics/antiplatelets; Z79.4 Long term (current) use of insulin
CPT/HCPCS: 36415; 71045; 71275; 80053; 83880; 84484; 85025; 85610; 85730; 93005; 96365; 96366; 96375; 96376; 99285; J1644; J2250; Q9967

== ENCOUNTER 2025-10-06 10:53 | Outpatient (OUT) | payer OTHER, SELFPAY ==
--- OUTSIDE RECORDS SUMMARY | 2025-01-29 09:15 | XMS_ITS ---
Author Organization The [facility] [place] Address [address] [place] [address] Care Team Providers Care Manager Of Engineering Name Role Phone Hussain Vallejo Primary Care Provider [phone] REASON FOR VISIT NEUROPATHY Encounters Encounter Location Date Provider Diagnosis [facility] [address] [place] [address] 01/29/2025 Hussain Vallejo Plan Of Treatment No Information Progress Notes * Madison CHEN LDOB:1969 (55 yo F)Acc No.[id number]:01/29/2025 UNLOCKED PROGRESS NOTE Progress Note Patient: Madison MCMULLEN :?Ricardo MUSTAFA), MDDOB:1970???Age: 54 Y???Sex:FemaleDate:01/29/2025Phone:[phone]:[address] [place] [address] Subjective: * Chief Complaints: * 1 . NEUROPATHY. * Medical History: Objective: * Vitals: Assessment: Plan: * Treatment: * * Electronic signature of Hussain Vallejo MD, [phone] on 10/06/2025 at 11:00 AM EST Sign off status: PendingVisit Status:?N/S N/C (No Show/No Charge) * Provider: Ian Vallejo MD (TTC) Date: 0 01/29/2025 Generated for Printing/Faxing/eTransmitting on:?10/06/2025 11:00 AM EST
--- OUTSIDE RECORDS SUMMARY | 2025-10-06 11:00 | XMS_ITS | Clinical Summary ---
Author Organization [facility] Address [address] [place] [address] Care Team Providers Care Heating Element Repairer Name Role Phone Ricardo Vallejo MD Primary Care Provider [phone] Carlos Alberto Bravo MD Unavailable Castillo Savage MD Unavailable Nubia Haynes Unavailable Unavailable Allergies Active AllergyReactionsCriticalityNoted DateCommentsCiprofloxacinGI intolerance, Other07/25/20234406SvbojenxusfgtZddya71/12/5744AibxnvvcPcwhv82/12/2022enicillamine Hives07/25/20232852MxebutcfbakCqtwl05/12/2022 Medications MedicationSigDispense QuantityRefillsLast FilledStart DateEnd DateStatus atorvastatin (Lipitor) 20 mg tablet atorvastatin 20 mg tabletActive levothyroxine (Synthroid, Levoxyl) 175 mcg tablet levothyroxine 175 mcg tabletActive insulin NPH and regular human (HumuLIN 70/30 U-100 Insulin) 100 unit/mL (70-30) injection 70 units in AM 30 units pm as neededActive metFORMIN (Glucophage) 500 mg tablet metformin 500 mg tabletActive furosemide (Lasix) 20 mg tablet Take 20 mg by mouth in the morning.Active hydrALAZINE (Apresoline) 25 mg tablet Take by mouth once daily as directed.Active DULoxetine (Cymbalta) [address] capsule Take 60 mg by mouth in the morning. Do not crush or chew.Active gabapentin (Neurontin) 600 mg tablet Take 600 mg by mouth four times daily.Active losartan (Cozaar) 100 mg tablet Take 100 mg by mouth in the morning.Active aspirin 81 mg EC tablet Take 81 mg by mouth in the morning.Active magnesium oxide (Mag-Ox) 200 mg split tablet Take 400 mg by mouth.Active hydroCHLOROthiazide (HYDRODiuril) 25 mg tablet Take 25 mg by mouth in the morning.08/21/2022ctive clopidogrel (Plavix) 75 mg tablet Take 75 mg by mouth in the morning.08/31/2024ctive Vitamin D3 25 mcg (1,000 unit) capsule Take 25 mcg by mouth in the morning.08/06/2024ctive Ozempic 2 mg/dose (8 mg/3 mL) pen injector INJECT 2 MG UNDER THE SKIN ONCE A WEEK04/18/2024ctive atorvastatin (Lipitor) 80 mg tablet Indications:Hyperlipidemia, unspecified hyperlipidemia typeTake 1 tablet (80 mg) by mouth in the morning. 30 tablet 111ctive amLODIPine (Norvasc) 10 mg tablet Take 10 mg by mouth in the morning.09/04/2025tive apixaban (Eliquis) 5 mg tablet Take 5 mg by mouth twice a day.09/02/2025tive ezetimibe (Zetia) 10 mg tablet Take 10 mg by mouth in the morning.09/03/2025tive Actos 15 mg tablet Take 15 mg by mouth in the morning.08/25/2025tive ticagrelor (Brilinta) 90 mg tablet Take 90 mg by mouth twice a day.6Active Active Problems ProblemNoted DateDiagnosed DateElevated anajibzp40/06/2025Hypertensive urgency 09/11/2025NSTEMI (non-ST elevated myocardial infarction)09/11/2025oronary artery disease involving [place] coronary artery of [place] heart without angina kuuynykp45/22/7821Brmigqrkcpqhxk96/29/2024Vision kvhtysp4408/04/2024cute nonintractable huavviov74/28/2024Solitary kidney, ynxfxojr63/07/2023 Nonfunctioning qpsnhl2910/26/2022HTN (hypertension)10/26/2022VA (cerebral vascular accident)10/26/2022trophic ddouvs4909/27/2022 Overview (09/27/2022): Added automatically from request for surgery [id number] [address] zxkblavc21/18/2022Hydronephrosis due to obstruction of vvcwsp4508/23/2022 Recurrent urinary tract ihsogilmd71/18/2022Nephrostomy tube uufndfpjg33/19/2022 History of penicillin qbfyyij2507/20/20225064Mycfchboxvtr57/14/2022Left flank pain 07/20/2022Metabolic rhjtnywm38/14/2022NSAID long-term use2Depression 07/18/2022History of coronary artery imgtxhs9507/18/20222069Tbjtsnsdxdfgry91/12/2022 Waunjjrzncie04/12/0338Olffaxnk61/20/2022Mixed vuithqcefepigl31/20/2022Type 2 diabetes mellitus with neurologic complication, with long-term current use of mxkfqag0912/26/2021Internal carotid artery stenosis, left12/25/2021Type 2 diabetes mellitus with zptfclh7006/21/2021lass 3 severe obesity with serious comorbidity and body mass index (BMI) of 40.0 to 44.9 in adult03/17/2020Ganglion cyst 02/04/2019Diabetes grgqfgek63/18/2019Preoperative cardiovascular examination 04/05/2016 Encounters DateTypeDepartmentCare OzuxTunfbxjolvr40/06/2025 1:40 PM ESTOffice Visit [address] [address] Bry Billy CNP LV (left ventricular) mural thrombus (Primary Dx); YE (dyspnea on exertion); Coronary artery disease involving w[place] coronary artery of [place] heart without angina pectoris; S/P cardiac catheterization; Primary hypertension; Mixed hyperlipidemia; Type 1 diabetes mellitus without complications ([facility])09/11/2025Orders Only [facility] [address] [place] [id number] Francheska Clemente MA LV (left ventricular) mural thrombus (Primary Dx)from Last 3 Months Family History Medical HistoryRelationNameCommentsCABG s7LhgabxXqhwkaze artery diseaseFather RelationNameStatusCommentsFather Social History Tobacco UseTypesPacks/DayYears UsedDateSmoking Tobacco: NeverSmokeless Tobacco: Never Tobacco Cessation:Counseling Given: Not Answered Alcohol UseStandard Drinks/WeekCommentsNot Currently0 (1 standard drink = 0.6 oz pure alcohol)PHQ-2AnswerDate RecordedPatient Health Questionnaire-2 Score2 11/11/2022UT Safety & EnvironmentAnswerDate RecordedFear of Current or Ex-PartnerNot on file12/28/2023Emotionally AbusedNot on file12/28/2023hysically AbusedNot on file12/28/2023Sexually AbusedNot on file12/28/2023hysically or Sexually AbusedNot on file12/28/2023CommentsNoSex and Gender Information ValueDate RecordedSex Assigned at XyjedIlgnpa02/27/2024 9:25 AM ESTLegal Sex Frklum5305/04/2022 10:39 PM EDTGender OxexptakQcmmaf23/27/2024 9:25 AM ESTSexual OrientationHeterosexual or Phsusdde22/27/2024 9:25 AM EST Last Filed Vital Signs Vital SignReadingTime TakenCommentsBlood Jvumylqm044/7709/11/2025 1:40 PM EST Tvxvu497609/11/2025 1:40 PM YDQXppqybaeqzb95.5 ??C (99.5 ??F)10/26/2022 7:20 PM ESTRespiratory Angl609001/02/2024 12:00 PM ESTOxygen Qdexkilcbi77%09/11/2025 1:40 PM ESTInhaled Oxygen Concentration--Jslnwg36.5 kg (215 lb)09/11/2025 1:40 PM EST Xkkdpx001 cm (5' 3 )09/11/2025 1:40 PM ESTBody Mass Index38.0909/11/2025 1:40 PM EST Plan of Treatment DateTypeDepartmentCare Team (Latest Contact Info)Zvzqkvoreif66/13/2026 9:45 AM ESTOffice Visit [facility] [address] [place] [address] Brendon Hudson MD [address] [facility] [address] [place] [address] Health MaintenanceDue DateLast DoneCommentsCT Byoqzaoefzdb1971Colonoscopy 1971Colorectal Cancer Jossfzhxi1971FIT-DNA1971FIT1970 FOBT1970 5897Wsfpemluykjgw1971Diabetes: Retinopathy Etsjszhpf42/21/1981 Depression Mxvwscqny66/21/1983Diabetes: Urine Protein Nctapiywe60/21/1990 Hepatitis B Vaccines (1 of 3 - 19+ 3-dose series)1990Pneumococcal Vaccine: Pediatrics (0 to 5 Years) and At-Risk Patients (6 to 64 Years) (1 of 2 - PCV) 1990Pap Smear1992Cervical Cancer Usxdxsvyr03/21/2001HPV/Cotest 09/26/20015474Ouljvzqcb67/21/2011Zoster Vaccines (1 of 2)2021OVID-19 Vaccine (3 - 2024- season), 03/06/2021Influenza Vaccine (#1) /, 08/04/2020, 11/01/2019, Additional history existsDiabetes: Hemoglobin A1C5Adult Eqzxkwi77HIB Vaccines Aged OutNo longer eligible based on patient's age to complete this topicHPV VaccinesAged OutNo longer eligible based on patient's age to complete this topic IPV VaccinesAged OutNo longer eligible based on patient's age to complete this topicMeningococcal B VaccineAged OutNo longer eligible based on patient's age to complete this topicMeningococcal VaccineAged OutNo longer eligible based on patient's age to complete this topicRotavirus VaccinesAged OutNo longer eligible based on patient's age to complete this topic Insurance Advance Directives * Full Code (Latest Code Status on File) Date ActivatedDate KjvdrsuhndyKbyisapj46/21/2022 2:19 PM10/27/2022 12:45 PM Care Teams Team MemberRelationshipSpecialtyStart DateEnd Date Ricardo Vallejo MD [address] [place] [place] [address] PCP - Uvnhbbf92/12/22 Carlos Alberto Bravo MD [address] [place] [phone] Consulting XbslkdtynJvsayps82/12/22 Castillo Savage MD [address] [place] [address] [place] [address] Consulting MbcmmsopeNueatsn63/13/22 Nubia Haynes PA [address] [place] [address] [place] [address] Physician TzmdbdkygQxppwed83/22/22
--- OUTSIDE RECORDS SUMMARY | 2025-10-06 11:00 | XMS_ITS | Clinical Summary ---
Author Organization [facility] Address [address] [place] [id number] Care Team Providers Care Lacing String Cutter Name Role Phone Edna Mcdermott MD Primary Care Provider [phone] Allergies Active AllergyReactionsCriticalityNoted VcjaPlidiahsJczaukswxmiwkAvsle94/31/2016 EkuoopdsflrnqSdqvj11/07/0956PtsmumdtGtyrrlr11/27/2016PenicillinsUnknown 04/01/2016 Medications * This document contains information received from the source organization and may not represent a complete record from that organization. MedicationSigDispense QuantityRefillsLast FilledStart DateEnd DateStatus atorvastatin (LIPITOR) 20 mg tablet Take 20 mg by mouth once daily.03/06/2016Active HUMULIN 70/30 100 unit/mL (70-30) 03/22/2016Active levothyroxine (SYNTHROID) 125 mcg tablet Take 125 mcg by mouth once daily.03/03/2016Active loratadine (CLARITIN) 10 mg tablet Take 10 mg by mouth as needed.02/04/2016Active ondansetron orally disintegrating (ZOFRAN ODT) 4 mg disintegrating tablet Take 4 mg by mouth as needed.03/12/2016Active aspirin, enteric coated (ASPIRIN, ENTERIC COATED) 81 mg EC tablet Take 81 mg by mouth once daily.Active blood sugar diagnostic (TRUE METRIX GLUCOSE TEST STRIP) test strip Inject 1 Strip subcutaneously twice daily.Active Insulin Syringe-Needle U-100 (BD INSULIN SYRINGE ULTRA-FINE) 1 mL 31 gauge x 5/16 Inject 1 Syringe subcutaneously twice daily.Active colesevelam (WELCHOL) 625 mg tablet Take 1 tablet by mouth once daily.Active hydroCHLOROthiazide (HYDRODIURIL, ESIDRIX) 25 mg tablet Take 1 tablet by mouth once daily.01/17/2020Active metFORMIN (GLUCOPHAGE) 500 mg tablet Take 1 tablet by mouth twice daily.01/17/2020Active predniSONE (DELTASONE) 10 mg tablet Take 1 tablet by mouth once daily.11/28/2019Active Active Problems ProblemNoted DateDiagnosed DateDiabetes mellitus type 2 in obese06/21/2021 Essential (primary) gpebepomrbii45/16/2021Morbid oirxplw16/16/2021Class 3 severe obesity with serious comorbidity and body mass index (BMI) of 40.0 to 44.9 in adult03/17/2020Type 2 diabetes mellitus without complication, with long-term current use of ejlaucc3303/17/2020Preoperative cardiovascular examination 04/05/2016 Family History Medical HistoryRelationCommentsDiabetesFatherHeartFatherCancerMotherpancreatic DiabetesMotherHeartMotherRelationStatusCommentsFatherAliveMotherDeceased Social History Tobacco UseTypesPacks/DayYears UsedDateSmoking Tobacco: NeverSmokeless Tobacco: NeverAlcohol UseStandard Drinks/WeekCommentsNo0 (1 standard drink = 0.6 oz pure alcohol)Overall Financial Resource Strain (CARDIA)AnswerDate RecordedHow hard is it for you to pay for the very basics like food, housing, medical care, and heating?Not very hard03/12/2020[employer] [place] [employer] - Occupational Stress QuestionnaireAnswerDate RecordedDo you feel stress - tense, restless, nervous, or anxious, or unable to sleep at night because yourmind is troubled all the time - these days?Only a wgihpx8003/12/2020Exercise Vital Sign AnswerDate RecordedOn average, how many days per week do you engage in moderate to strenuous exercise (like a brisk walk)?3 days03/12/2020On average, how many minutes do you engage in exercise at this level?90 min03/12/2020Hunger Vital SignAnswerDate RecordedWithin the past 12 months, you worried that your food would run out before you got the money to buymore.Never true03/12/2020Within the past 12 months, the food you bought just didn't last and you didn't have money to get more.Never true03/12/2020PRAPARE - TransportationAnswerDate RecordedIn the past 12 months, has lack of transportation kept you from medical appointments or from getting medications?No03/12/2020In the past 12 months, has lack of transportation kept you from meetings, work, or from getting things needed for daily living?No03/12/2020Area Deprivation IndexAnswerDate Recorded National Score (1-100), lower number is lower riskNot on file10/13/2020State Score (1-10), lower number is lower riskNot on file10/13/2020Data from: https://www.neighborhoodatlas.medicine.[facility].edu/. Last address used for calculationNot on file10/13/2020CommentsUnknownSex and Gender InformationValueDate RecordedSex Assigned at BirthNot on fileLegal SexFemale 02/06/2015 10:19 AM EDTGender IdentityNot on fileSexual OrientationNot on file OccupationIndustryJob Start DateJob End DatedisabilityNot on fileNot on fileNot on file Last Filed Vital Signs Vital SignReadingTime TakenCommentsBlood Coonxtuy477/9404/05/2016 10:55 AM EDT Ejalg263104/05/2016 10:55 AM HQATuqqsqcnkls95.7 ??C (98.1 ??F)04/05/2016 10:55 AM EDTRespiratory Onfl852904/05/2016 10:55 AM EDTOxygen Tatlkvecsk75%04/05/2016 10:55 AM EDTInhaled Oxygen Concentration--Rgnqvi338 kg (236 lb)03/31/2021 9:13 AM EDT Hxyfef639 cm (5' 3 )03/31/2021 9:13 AM EDTBody Mass Index41.8103/31/2021 9:13 AM EDT Plan of Treatment Health MaintenanceDue DateLast DoneCommentsAnxiety Etmwvzvbk12/21/1989Depression Cijypwmzh55/21/1989HIV Nbqvepygk85/21/1989Hepatitis C Xbfxbtroj18/21/1989 Hepatitis B Vaccine (1 of 3 - 19+ 3-dose series)1990Cervical Cancer Wdmbqpiag76/21/1992Mammogram Wvzygugpv10/21/2011CT Zgbyvocegadg55/21/2016 Cologuard (FIT-DNA)09/26/20167803Lilnvdqhwxr63/21/2016Colorectal Cancer Screening 2016Fecal Occult Blood09/26/20168668Svmjxpuhbrvvv40/21/2016Pneumococcal Vaccine: 50+ (1 of 1 - PCV)2021hingrix Vaccine (1 of 2)1Diabetes Pznmbqdnk09/20/984318/, 12/26/2021, 2Covid-19 Vaccine (3 - 2024- season)512/, 03/06/2021Influenza Vaccine (#1)2025 10/28/2021, 08/04/2020, 11/01/2019, Additional history existsDTaP,Tdap,Td Vaccine (2 - Td or Tdap)Lipid Daohjodtw93 Insurance Care Teams Team MemberRelationshipSpecialtyStart DateEnd Date Edna Mcdermott MD [address] [place] [id number] PCP - GeneralFamily Medicine04/05/16
--- OUTSIDE RECORDS SUMMARY | 2025-10-06 11:00 | XMS_ITS | Clinical Summary ---
Author Organization [facility] Address [address] [place] [address] Care Team Providers Care Child Care Assistant Name Role Phone Unavailable Primary Care Provider Unavailabl e Social History Tobacco UseTypesPacks/DayYears UsedDateSmoking Tobacco: Never Assessed CommentsUnknownSex and Gender InformationValueDate RecordedSex Assigned at Not on fileLegal SocXmdtiq77/01/2023 8:32 PM EDTGender IdentityNot on file Sexual OrientationNot on file Last Filed Vital Signs Vital SignReadingTime TakenCommentsBlood Ocwxdgpq413/8208 12:00 PM EDT Pulse--Temperature--Respiratory Rate--Oxygen Saturation--Inhaled Oxygen Concentration--Nonnun492 kg (240 lb)06/19/2019 12:00 PM ZDFGblcpi178.6 cm (5' 4 )06/19/2019 12:00 PM EDTBody Mass Index41. 12:00 PM EDT Plan of Treatment Not on file
--- OUTSIDE RECORDS SUMMARY | 2025-10-06 11:01 | XMS_ITS | Clinical Summary ---
Author Organization [facility] Address [address] 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 Role Phone Unavailable Primary Care Provider Unavailabl e Allergies Active AllergyReactionsCriticalityNoted DateCommentsCiprofloxacinGI Upset 08/26/20258819EbcifoazKricg65/21/7348DbzpuvguspjkxAhyko45/21/2025 Medications MedicationSigDispense QuantityRefillsLast FilledStart DateEnd DateStatus cholecalciferol (Vitamin D-3) 25 mcg (1,000 units) capsule Take 2 capsules (50 mcg) by mouth once daily.Active gabapentin (Neurontin) 600 mg tablet Take 2 tablets (1,200 mg) by mouth 2 times a day.02/27/2024ctive insulin NPH and regular human (HumuLIN 70-30, NovoLIN 70-30) 100 unit/mL (70-30) injection Inject under the skin. Insulin Nph And Regular Human (Humulin 70/30 U-100 Insulin) 100 unit/mL (70-30) suspension Active 80 UNIT SUBQ every morning May 02, 2024 12:00am 80 AM AND 50 PM Complies with drug /27/2024Active levothyroxine (Tirosint) 125 mcg capsule Take 1 capsule (125 mcg) by mouth once every 24 hours. In morning on empty stomachActive Actos 15 mg tablet Take 1 tablet (15 mg) by mouth once daily.5Active apixaban (Eliquis) 5 mg tablet Indications:pulmonary thromboembolismTake 1 tablet (5 mg) by mouth 2 times a day. 60 tablet 6:03 PM EST5Active hydrALAZINE (Apresoline) 25 mg tablet Indications:Coronary artery disease involving [place] coronary artery of [place] heart without angina pectoris,Coronary stent thrombosis, initial encounter,LV (left ventricular) mural thrombusTake 1 tablet (25 mg) by mouth 3 times a day. 270 tablet 5Active amLODIPine (Norvasc) 10 mg tablet Indications:Coronary artery disease involving [place] coronary artery of [place] heart without angina pectoris,Coronary stent thrombosis, initial encounter,LV (left ventricular) mural thrombusTake 1 tablet (10 mg) by mouth once daily. 90 tablet 6:03 PM EST5Active ezetimibe (Zetia) 10 mg tablet Indications:Coronary artery disease involving [place] coronary artery of [place] heart without angina pectoris,Coronary stent thrombosis, initial encounter,LV (left ventricular) mural thrombusTake 1 tablet (10 mg) by mouth once daily at bedtime. 90 tablet 6:03 PM EST5Active ticagrelor (Brilinta) 90 mg tablet Indications:Coronary artery disease involving [place] coronary artery of [place] heart without angina pectoris,Coronary stent thrombosis, initial encounter,LV (left ventricular) mural thrombusTake 1 tablet (90 mg) by mouth 2 times a day for 717 doses. 180 tablet 6:03 PM EST/6Active atorvastatin (Lipitor) 80 mg tablet Indications:Coronary artery disease involving [place] coronary artery of [place] heart without angina pectoris,Coronary stent thrombosis, initial encounter,LV (left ventricular) mural thrombusTake 1 tablet (80 mg) by mouth once daily. 90 tablet 5Active Active Problems ProblemNoted DateDiagnosed DateCoronary artery disease involving [place] coronary artery of [place] heart without angina nxbceqyb05/22/2025 Assessment & Plan (08/30/2025 4:47 PM EDT): OMAR Encounters DateTypeDepartmentCare KvflPqkqhwhacdz52/21/2025 9:18 PM EDT - 09/03/2025 1:40 PM EDTHospital Encounter [facility] [address] [address] [place] [address] Santa Paredes MD Montgomery, Robert A, MD Okyere, Robert A, MD Coronary artery disease involving [place] coronary artery of [place] heart without angina pectoris (Primary Dx); OMAR (acute kidney injury); Bilateral carotid artery stenosis; Coronary stent thrombosis, initial encounter; LV (left ventricular) mural thrombus; Acute kidney injury superimposed on stage 3b chronic kidney disease ([facility]-H[facility]) Discharge Disposition: Home08/26/20255804Pjjryy16/20/2025Scanned Document [facility] [address] [place] [address] Scanning, Generic Provider from Last 3 Months Social History Tobacco UseTypesPacks/DayYears UsedDateSmoking Tobacco: NeverSmokeless Tobacco: Never Tobacco Cessation:Counseling Given: Not Answered Alcohol UseStandard Drinks/WeekCommentsNever0 (1 standard drink = 0.6 oz pure alcohol)PHQ-2AnswerDate RecordedPatient Health Questionnaire-2 [id number] Humiliation, Afraid, Rape, and Kick questionnaireAnswerDate RecordedWithin the last year, have you been afraid of your partner or ex-partner?No08/29/2025Within the last year, have you been humiliated or emotionally abused in other ways by your partner or ex-partner?No08/29/2025Within the last year, have you been kicked, hit, slapped, or otherwise physically hurt by your partner or ex-partner?No08/29/2025Within the last year, have you been raped or forced to have any kind of sexual activity by your partner or ex-partner?No08/29/2025 Social Connection and Isolation PanelAnswerDate RecordedFrequency of Communication with Friends and FamilyNot on file08/29/2025Frequency of Social Gatherings with Friends and FamilyNot on file08/29/2025ttends Latter Day ServicesNot on file08/29/2025tive Member of Clubs or OrganizationsNot on file 08/29/2025ttends Club or Organization MeetingsNot on file08/29/2025re you , , , , never , or living with a partner? Hwskfod5108/29/2025UDIT-CAnswerDate RecordedQ1: How often do you have a drink containing alcohol?Never08/26/2025Q2: How many drinks containing alcohol do you have on a typical day when you are drinking?Patient does not drink08/26/2025Q3: How often do you have six or more drinks on one occasion?Never08/26/2025Overall Financial Resource Strain (CARDIA)AnswerDate RecordedHow hard is it for you to pay for the very basics like food, housing, medical care, and heating?Not very hard08/29/2025Hunger Vital SignAnswerDate RecordedWithin the past 12 months, you worried that your food would run out before you got the money to buymore.Never true08/29/2025Within the past 12 months, the food you bought just didn't last and you didn't have money to get more.Never true08/29/2025PRAPARE - TransportationAnswerDate RecordedIn the past 12 months, has lack of transportation kept you from medical appointments or from getting medications?No 08/29/2025In the past 12 months, has lack of transportation kept you from meetings, work, or from getting things needed for daily living?No08/29/2025 Housing Stability Vital SignAnswerDate RecordedIn the last 12 months, was there a time when you were not able to pay the mortgage or rent on time?No08/29/2025In the past 12 months, how many times have you moved where you were living?0 08/29/2025t any time in the past 12 months, were you homeless or living in a halfway (including now)?No08/29/2025HC UtilitiesAnswerDate RecordedIn the past 12 months has the Ide[employer], gas, oil, or water [employer] threatened to shut off services in your home?No08/29/2025CommentsUnknownSex and Gender InformationValueDate RecordedSex Assigned at BirthNot on fileLegal SexFemale 08/26/2025 8:44 AM EDTGender IdentityNot on fileSexual OrientationNot on file Last Filed Vital Signs Vital SignReadingTime TakenCommentsBlood Tncrkjvv532/8509/03/2025 11:22 AM EDT Otbpy355609/03/2025 11:22 AM ZKEMboqdqwxcbw26.4 ??C (97.5 ??F)09/03/2025 11:22 AM EDTRespiratory Ykfb6731 11:22 AM EDTOxygen Sodyijmyna59%09/03/2025 11:22 AM EDTInhaled Oxygen Concentration--Wvonie076 kg (243 lb 6.2 oz)09/03/2025 3:56 AM OTHLscokb589.1 cm (5' 5 )08/26/2025 10:00 PM EDTBody Mass Index40. 10:00 PM EDT Plan of Treatment Health MaintenanceDue DateLast DoneCommentsCT Erfrsxupfkfm1971Colonoscopy 1971Colorectal Cancer Nftpqtywx1971FIT-DNA (Cologuard)1971FIT 1971HIV Zhegmfocb40/21/9807Qbatqmcykuvda1971TSH Level1971 Yearly Adult Pmuhkhxr1971Hepatitis C Azusandjz78/21/1989CKD: Urine Protein Bhsdwreri08/21/1990Hepatitis B Vaccines (1 of 3 - 19+ 3-dose series)1990 Pneumococcal Vaccine (1 of 2 - PCV)1990Cervical Cancer Hqmegzcij98/21/1992 HPV/Xacubi4109/26/1992Pap Smear09/26/19920231Ufnhxmiyy32/21/2011Zoster Vaccines (1 of 2)2021Influenza Vaccine (#1), 08/04/2020, 11/01/2019, Additional history existsCOVID-19 Vaccine (1 - 2024- season)2025 DTaP/Tdap/Td Vaccines (2 - Td or Tdap)/Diabetes Screening /, 09/03/2025, 09/03/2025, Additional history existsLipid PanelHepatitis A VaccinesAged Out03/15/2019No longer eligible based on patient's age to complete this topicMMR VaccinesCompleted 03/15/2019HIB VaccinesAged OutNo longer eligible based on patient's age to complete this topicHPV VaccinesAged OutNo longer eligible based on patient's age to complete this topicIPV VaccinesAged OutNo longer eligible based on patient's age to complete this topicMeningococcal VaccineAged OutNo longer eligible based on patient's age to complete this topicRotavirus VaccinesAged OutNo longer eligible based on patient's age to complete this topic Procedures Procedure NamePriorityDate/TimeAssociated DiagnosisCommentsPOCT GLUCOSERoutine 09/03/2025 11:24 AM EDT MANUAL GNXYODWSSXTBIramurw34/29/2025 8:42 AM EDT BASIC METABOLIC OMKLDJwagfcd11/29/2025 8:42 AM EDT ECVWTABGHJBuocexd41/29/2025 8:42 AM EDT COAGULATION YQOROWMnlnnel29/29/2025 8:42 AM EDT PLTTSJOVFQhmpmid37/29/2025 8:42 AM EDT HEPATIC FUNCTION HEXXTVmddbme75/29/2025 8:42 AM EDT CBC WITH AUTO MZXSOZRZORZHAmwllwh59/29/2025 8:42 AM EDT POCT JJZCKLMHzszrks83/29/2025 7:50 AM EDT ECG 12-ELFGAcsbfgn35/29/2025 6:23 AM EDT POCT PYBIZYUTmnzbwu15/28/2025 7:26 PM EDT LIPID PANELAdd-On09/02/2025 5:04 PM EDT RENAL FUNCTION LDHTDFprhjdw85/28/2025 5:04 PM EDT POCT FJSSCSPPddeahc44/28/2025 4:30 PM EDT POCT EMNBIDJAasncqj02/28/2025 11:09 AM EDT PST FNZKqxtyip57/28/2025 8:25 AM EDT EXTRA ZUYZMHbkzgnb01/28/2025 8:25 AM EDT LAVENDER KNBLwvykfk74/28/2025 8:25 AM EDT EXTRA WIJMFPpoypev92/28/2025 8:25 AM EDT MANUAL GJKRUVTWZPRSKciviks77/28/2025 7:49 AM EDT HEPARIN ZVSSQSsbva77/28/2025 7:49 AM EDT BASIC METABOLIC MUPZDBdxbzee02/28/2025 7:49 AM EDT WGWRLIELQQUgxohff32/28/2025 7:49 AM EDT COAGULATION NGAGSCHpwjuvv85/28/2025 7:49 AM EDT NMLYKVVVTOphdgjx36/28/2025 7:49 AM EDT HEPATIC FUNCTION GDWYVAifdvho85/28/2025 7:49 AM EDT CBC WITH AUTO OHDZVTCWTSGBOhlyfme69/28/2025 7:49 AM EDT POCT ZHVODIATxsrbky66/28/2025 7:23 AM EDT POCT DWEWNXHOxpdehq56/27/2025 9:52 PM EDT POCT HJSQDWMNhjssow79/27/2025 4:07 PM EDT POCT NPWCGKMOfgpgfq15/27/2025 12:27 PM EDT POCT EGJVKZRThtwpaf28/27/2025 8:22 AM EDT HEPARIN ASSAYPending Efnlyqdno62/27/2025 7:46 AM EDT ECG 12-AHBLHtucops48/27/2025 6:21 AM EDT MORPHOLOGYPending Zufqigjuo87/27/2025 3:46 AM EDT HEPARIN ASSAYPending Bdkgvyvoj43/27/2025 3:46 AM EDT BASIC METABOLIC PANELPending Ltfnwdxvz36/27/2025 3:46 AM EDT PHOSPHORUSPending Abjuarcwl44/27/2025 3:46 AM EDT COAGULATION SCREENPending Rqyjxkjds54/27/2025 3:46 AM EDT MAGNESIUMPending Jfrmlscpq16/27/2025 3:46 AM EDT HEPATIC FUNCTION PANELPending Msgwnggbg43/27/2025 3:46 AM EDT CBC WITH AUTO DIFFERENTIALPending Ahzxzlqmu00/27/2025 3:46 AM EDT HEPARIN ASSAYPending Hyzxqklzs53/26/2025 10:11 PM EDT POCT GRYATNJPqzklwb60/26/2025 7:20 PM EDT POCT LWHGXDVVhkhxfr54/26/2025 3:59 PM EDT HEPARIN ASSAYPending Riroqcfol63/26/2025 2:54 PM EDT POCT EYWXRZUTqsuiyf08/26/2025 11:43 AM EDT POCT UIPZHKWJzstzlu46/26/2025 7:32 AM EDT TROPONIN I, HIGH SENSITIVITYAdd-On08/31/2025 7:24 AM EDT HEPARIN ASSAYPending Vaglxlifn19/26/2025 7:24 AM EDT BASIC METABOLIC PANELPending Kbvpcpgxw41/26/2025 7:24 AM EDT PHOSPHORUSPending Kahxudbey73/26/2025 7:24 AM EDT COAGULATION ZJBAREGluurng16/26/2025 7:24 AM EDT CHQGIQLMCPkndijb89/26/2025 7:24 AM EDT HEPATIC FUNCTION VSLPYGbvbbfy04/26/2025 7:24 AM EDT CBC WITH AUTO CCQUHYMKLWKSPlfnypy42/26/2025 7:24 AM EDT ECG 12-PRRFMofehmk44/26/2025 5:55 AM EDT POCT PNAFIIUPqfftqc13/25/2025 8:15 PM EDT HEPARIN DWNZNYqefm08/25/2025 6:01 PM EDT POCT CMZIXOHLougnjk16/25/2025 4:50 PM EDT ECG 12-LWLOWmkxidy07/25/2025 2:06 PM EDT URINALYSIS MICROSCOPIC RCBKMQVX91/25/2025 12:42 PM EDT EXTRA URINE TOPETE SYFLPIYO59/25/2025 12:42 PM EDTURINALYSIS WITH REFLEX MICROSCOPIC AND KQWVNOAJKSD47/25/2025 12:42 PM EDT URINALYSIS WITH REFLEX MICROSCOPIC AND JNSIPXTHNYT24/25/2025 12:42 PM EDT URINE YUVCCEOJOXC91/25/2025 12:42 PM EDT PROTIME-SUNDijyl51/25/2025 11:58 AM EDT LIMLGdglm76/25/2025 11:58 AM EDT POCT MBXWIMRBqysyrd97/25/2025 11:39 AM EDT POCT KFFYRDMAcmavdn63/25/2025 7:38 AM EDT BASIC METABOLIC ZEKORXuegvgw88/25/2025 7:07 AM EDT TGIALZWCJRSfjiuqe60/25/2025 7:07 AM EDT XRASETMWDXkzcmaa25/25/2025 7:07 AM EDT HEPATIC FUNCTION FSFIJFapghlp58/25/2025 7:07 AM EDT CBC WITH AUTO AELMXDRRTIOPNetagwb59/25/2025 7:07 AM EDT DRUG SCREEN,URINEAdd-On08/30/2025 4:08 AM EDT URINALYSIS MICROSCOPIC HHHMQdnnqsy64/25/2025 4:08 AM EDT URINALYSIS WITH REFLEX GLVDORDGLCGDnadgzv63/25/2025 4:08 AM EDT UREA NITROGEN, URINE IITJPYOrrnojh86/25/2025 4:08 AM EDT ELECTROLYTE PANEL, DBIAHDjpvuyh76/25/2025 4:08 AM EDT POCT XCDDFTCTigecut97/24/2025 8:31 PM EDT POCT VLSOKXRFpycxuv55/24/2025 3:43 PM EDT POCT TEYEMFXGquayfk85/24/2025 3:07 PM EDT POCT YDWDYAALivdyuk22/24/2025 11:07 AM EDT ECG 12-WMWLTfhfvof55/24/2025 11:00 AM EDT HEPARIN LGRAMUsjvv50/24/2025 8:21 AM EDT POCT LXDGRJTNqddtna17/24/2025 7:58 AM EDT ECG 12-WTCKMjppmbx16/24/2025 6:01 AM EDT HEPARIN GERIVObvrg60/24/2025 3:27 AM EDT BASIC METABOLIC NNOQKHiqtief81/24/2025 3:27 AM EDT KUJSOFNSHCQjgykxi03/24/2025 3:27 AM EDT SAMYMGXDARwtgcvo56/24/2025 3:27 AM EDT HEPATIC FUNCTION PYDUOCbwgkle17/24/2025 3:27 AM EDT CBC WITH AUTO KNTTFFDSYFQJNptzxky44/24/2025 3:27 AM EDT ECG 12-QRGLIfgzirh92/23/2025 10:25 PM EDT POCT ZXIGFZRTyymzlw23/23/2025 8:45 PM EDT VASC US CAROTID ARTERY DUPLEX BFZUASOZLVidowue14/23/2025 4:47 PM EDT Bilateral carotid artery stenosis ACTIVATED CLOTTING TIME QIWCzgtspp36/23/2025 4:46 PM EDT POCT HQFYOZNKtlbyjy33/23/2025 4:14 PM EDT NERUFCSIGJixjpni72/23/2025 12:02 PM EDT RENAL FUNCTION WZZWDVcweqcn71/23/2025 12:02 PM EDT POCT UVPILPUZxxbmrd58/23/2025 11:24 AM EDT TRANSTHORACIC ECHO (TTE) COMPLETE WITH DZLDNVWAPCPI22/23/2025 9:26 AM EDT Coronary artery disease involving [place] coronary artery of [place] heart without angina pectoris POCT MRTURQKNlxsqmf94/23/2025 7:28 AM EDT XR CHEST 1 RSDWTALP15/23/2025 7:01 AM EDT ECG 12-LCVQJsefrma79/23/2025 6:03 AM EDT RENAL FUNCTION BEKVSVbudwmp43/23/2025 4:10 AM EDT POCT IJLWBZLVplpmaq93/23/2025 4:00 AM EDT POCT NCUIXPQNmecjhu32/23/2025 1:22 AM EDT HEPARIN MJFBFVjach01/23/2025 1:19 AM EDT WOBJTFMTEHGfgugyi74/23/2025 1:19 AM EDT ORLUPREPUFrnnvzn27/23/2025 1:19 AM EDT HEPATIC FUNCTION TYKAFOiskamb89/23/2025 1:19 AM EDT CBC WITH AUTO RAGTCLSGRIEUPitbnpp35/23/2025 1:19 AM EDT ECG 12-QOPFWmdaupq86/22/2025 9:55 PM EDT TROPONIN I, HIGH FABHPWOJQCGEdvdgme23/22/2025 9:53 PM EDT POCT SNIWQKVPcljwni41/22/2025 7:43 PM EDT TROPONIN I, HIGH NFBZKHIXQSKBoljx30/22/2025 6:12 PM EDT BLOOD GAS VENOUS FULL SPKFEVxmvm39/22/2025 5:11 PM EDT BLOOD GAS VENOUS GACYFOEMYKVBpaexoj01/22/2025 4:57 PM EDT POCT WGREITGZvhyaew98/22/2025 4:43 PM EDT TROPONIN I, HIGH ZXTECHUWBAGIdscz19/22/2025 4:41 PM EDT US BREVIG MISSION RENAL WITH RVQITQWErldybj01/22/2025 3:56 PM EDT OMAR (acute kidney injury) BLOOD GAS VENOUS FULL UQESARseaj14/22/2025 2:36 PM EDT TROPONIN I, HIGH FZVHRLRDKFVLkdvg24/22/2025 2:36 PM EDT ECG 12-IAMGKwbhbnl90/22/2025 2:34 PM EDT BLOOD GAS VENOUS FULL HQZASFbcqh74/22/2025 12:38 PM EDT TROPONIN I, HIGH HHWYGGEHGSGRapze94/22/2025 12:38 PM EDT POCT VZHGWFSGjwepys35/22/2025 12:16 PM EDT BLOOD GAS VENOUS FULL HBZZTHnhqn20/22/2025 10:41 AM EDT TROPONIN I, HIGH LKXXWKAIMKVTcaei39/22/2025 10:07 AM EDT HEPARIN WJQCYLnfax52/22/2025 8:34 AM EDT TROPONIN I, HIGH HREVZSEHSEFRnwki73/22/2025 8:34 AM EDT POCT TKHQRQRMsgsanl96/22/2025 8:33 AM EDT TROPONIN I, HIGH BLXJFSSVSHJXavtkxo43/22/2025 5:41 AM EDT ECG 12-PZGHVvvzkrc57/22/2025 4:10 AM EDT POCT QZZMFINQtugsxu93/22/2025 3:24 AM EDT BLOOD GAS VENOUS FULL JYMKHQzciy50/22/2025 3:20 AM EDT HEPARIN QVMAHWkuioyd06/22/2025 3:20 AM EDT VITAMIN A64Drz-Hm78/22/2025 3:11 AM EDT FOLATEAdd-On08/27/2025 3:11 AM EDT FERRITINAdd-On08/27/2025 3:11 AM EDT IRON AND TIBCAdd-On08/27/2025 3:11 AM EDT BASIC METABOLIC PECTQKgcymya05/22/2025 3:11 AM EDT EUTJPVGJTHFjpfxel16/22/2025 3:11 AM EDT XRQQNNPRDOheqnps71/22/2025 3:11 AM EDT HEPATIC FUNCTION FYLCWLctgsze30/22/2025 3:11 AM EDT CBC WITH AUTO STLRYBORCORZBzrjpcs32/22/2025 3:11 AM EDT XR CHEST 1 GYNDQTNY96/22/2025 2:00 AM EDT BLOOD GAS VENOUS FULL GSVWZBhapuds34/22/2025 12:04 AM EDT TROPONIN I, HIGH PHCIJQSKLFGKfyuxvg01/22/2025 12:04 AM EDT TRANSTHORACIC ECHO (TTE) LIMITED WITH DOPPLER AND UBSCYFLNJ62/21/2025 11:20 PM EDT Coronary artery disease involving [place] coronary artery of [place] heart without angina pectoris POCT KTQRVTRPdswlmn36/21/2025 10:33 PM EDT HEPARIN UCSCKJidirzu76/21/2025 10:07 PM EDT VERAB/VERIFY GSQNDVwyeisz83/21/2025 10:06 PM EDT HEMOGLOBIN B4RVgk-Xb84/21/2025 9:58 PM EDT BASIC METABOLIC WWXKKYITL63/21/2025 9:58 PM EDT QPHUCDIOLNJMVW98/21/2025 9:58 PM EDT B-TYPE NATRIURETIC LINMTRLKnbnfou56/21/2025 9:58 PM EDT TROPONIN I, HIGH EWAVTREEYFPDNUC13/21/2025 9:58 PM EDT BLOOD GAS VENOUS FULL JNKKKROSL58/21/2025 9:58 PM EDT TYPE AND PFMGANFTBC36/21/2025 9:58 PM EDT COAGULATION HRRSUFOPNA92/21/2025 9:58 PM EDT HEPATIC FUNCTION WUQVDKAXS46/21/2025 9:58 PM EDT OPOYYJMBUUYOS21/21/2025 9:58 PM EDT CBC WITH AUTO QOSZIMEJWZVFHGNC62/21/2025 9:58 PM EDT LXBLJFRFZWHXCT01/20/2025 from Last 3 Months Results * (ABNORMAL) POCT GLUCOSE (09/03/2025 11:24 AM EDT)ComponentValueRef RangeTest MethodAnalysis TimePerformed AtPathologist SignaturePOCT Vfqwjed263(H)74 - 99 mg/dL09/03/2025 11:33 AM EDTG[facility] LABSpecimen (Source)Anatomical Location / LateralityCollection Method / VolumeCollection TimeReceived TimeBloodCapillary blood specimen / Iaplokw5509/03/2025 11:24 AM EDT1 11:33 AM EDT Narrative Authorizing ProviderResult TypeResult StatusRobert Boni [place]INT OF CARE TEST DOCKED DEVICE UNSOLICITED RESULTSFinal ResultPerforming OrganizationAddress City/State/ZIP CodePhone Number [facility] [address] [phone] * (ABNORMAL) CBC and Auto Differential (09/03/2025 8:42 AM EDT) Only the most recent of9 resultswithin the time period is included. ComponentValueRef RangeTest MethodAnalysis TimePerformed AtPathologist Signature WBC12.0(H)4.4 - 11.3 x10*3/uL LAB HEMATOLOGY METHOD 09/03/2025 12:38 PM [facility] LABnRBC0.00.0 - 0.0 /100 WBCs LAB HEMATOLOGY METHOD 09/03/2025 12:38 PM [facility] LABRBC3.37(L)4.00 - 5.20 x10*6/uL LAB HEMATOLOGY METHOD 09/03/2025 12:38 PM [facility] LABHemoglobin9.4(L)12.0 - 16.0 g/dL LAB HEMATOLOGY METHOD 09/03/2025 12:38 PM [facility] VCEGgtbksszav79.6(L)36.0 - 46.0 % LAB HEMATOLOGY METHOD 09/03/2025 12:38 PM [facility] WHTQAO3467 - 100 fL LAB HEMATOLOGY METHOD 09/03/2025 12:38 PM [facility] SAWGUD07.926.0 - 34.0 pg LAB HEMATOLOGY METHOD 09/03/2025 12:38 PM [facility] XPSMVSF99.932.0 - 36.0 g/dL LAB HEMATOLOGY METHOD 09/03/2025 12:38 PM [facility] NJUHVQ20.711.5 - 14.5 % LAB HEMATOLOGY METHOD 09/03/2025 12:38 PM [facility] BAPTgavncpkh446(H)150 - 450 x10*3/uL LAB HEMATOLOGY METHOD 09/03/2025 12:38 PM [facility] LABImmature Granulocytes %, Automated3.7(H)0.0 - 0.9 % LAB HEMATOLOGY METHOD 09/03/2025 12:38 PM [facility] LABComment:Immature Granulocyte Count (IG) includes promyelocytes, myelocytes and metamyelocytes but does not include bands. Percent differential counts (%) should be interpreted in the context of the absolute c ell counts (cells/UL).Immature Granulocytes Absolute, Automated0.450.00 - 0.70 x10*3/uL LAB HEMATOLOGY METHOD 09/03/2025 12:38 PM [facility] LABSpecimen (Source)Anatomical Location / LateralityCollection Method / VolumeCollection TimeReceived TimeBloodVenous blood specimen / UnknownVenipuncture / Oyrbcuj6109/03/2025 8:42 AM EDT1 9:36 AM EDT Narrative [facility] - 09/03/2025 12:38 PM EDT The previously reported component Neutrophils % is no longer being reported.The previously reported component Lymphocytes % is no longer being reported.The previously reported component Monocytes % is no longer being reported.The previously reported component Eosinophils % is no longer being reported.The previously reported component Basophils % is no longer being reported.The previously reported component Absolute Neutrophils is no longer being reported.The previously reported component Absolute Lymphocytes is no longer being reported.The previously reported component Absolute Monocytes is no longer being reported.The previously reported component Absolute Eosinophils is no longer being reported.The previously reported component Absolute Basophils is no longer being reported. Authorizing ProviderResult TypeResult StatusMicjordan Thompson AIRWAY TRAFFIC CONTROLLER-PEDIATRICIAN/MEDICAL DOCTOR, DNPLAB BLOOD ORDERABLESFinal ResultPerforming OrganizationAddressCity/State/ZIP Code Phone Number [facility] [address] [phone] * (ABNORMAL) Manual Differential (09/03/2025 8:42 AM EDT) Only the most recent of2 resultswithin the time period is included. ComponentValueRef RangeTest MethodAnalysis TimePerformed AtPathologist Signature Neutrophils %, Itxdav84.140.0 - 80.0 %09/03/2025 12:38 PM [facility] LABComment: Percent differential counts (%) should be interpreted in the context of the absolute cell counts (cells/uL).Bands %, Manual0.00.0 - 5.0 %09/03/2025 12:38 PM EDMAR[facility] LABLymphocytes %, Urhuyo01.313.0 - 44.0 %09/03/2025 12:38 PM [facility] LABMonocytes %, Manual6.02.0 - 10.0 %09/03/2025 12:38 PM EDMAR[facility] LABEosinophils %, Manual0.80.0 - 6.0 %09/03/2025 12:38 PM EDMAR[facility] LABBasophils %, Manual0.80.0 - 2.0 %09/03/2025 12:38 PM [facility] LABAtypical Lymphocytes %, Manual5.10.0 - 2.0 %09/03/2025 12:38 PM [facility] LABMetamyelocytes %, Manual0.00.0 - 0.0 % 09/03/2025 12:38 PM [facility] LABMyelocytes %, Manual0.90.0 - 0.0 %09/03/2025 12:38 PM [facility] LABPlasma Cells %, Manual0.00.00 - 0.00 %09/03/2025 12:38 PM [facility] LABPromyelocytes %, Manual0.00.0 - 0.0 %09/03/2025 12:38 PM [facility] LABBlasts %, Manual0.00.0 - 0.0 %09/03/2025 12:38 PM [facility] LABOthers %, Manual0.0%09/03/2025 12:38 PM [facility] LABSeg Neutrophils Absolute, Manual9.13 (H)1.20 - 7.00 x10*3/uL09/03/2025 12:38 PM [facility] LABBands Absolute, Manual 0.000.00 - 0.70 x10*3/uL09/03/2025 12:38 PM [facility] LABLymphocytes Absolute, Manual1.241.20 - 4.80 x10*3/09/03/2025 12:38 PM [facility] LABMonocytes Absolute, Manual0.720.10 - 1.00 x10*3/09/03/2025 12:38 PM [facility] LAB Eosinophils Absolute, Manual0.100.00 - 0.70 x10*3/09/03/2025 12:38 PM [facility] LABBasophils Absolute, Manual0.100.00 - 0.10 x10*3/09/03/2025 12:38 PM [facility] LABAtypical Lymphs Absolute, Manual0.61(H)0.00 - 0.50 x10*3/09/03/2025 12:38 PM [facility] LABMetamyelocytes Absolute, Manual0.000.00 - 0.00 x10*3/uL 09/03/2025 12:38 PM [facility] LABMyelocytes Absolute, Manual0.110.00 - 0.00 x10*3/09/03/2025 12:38 PM [facility] LABPlasma Cells Absolute, Manual0.000.00 - 0.00 x10*3/09/03/2025 12:38 PM [facility] LABPromyelocytes Absolute, Manual0.00 0.00 - 0.00 x10*3/09/03/2025 12:38 PM [facility] LABBlasts Absolute, Manual0.00 0.00 - 0.00 x10*3/09/03/2025 12:38 PM [facility] LABOthers Absolute, Manual0.00 x10*3/uL09/03/2025 12:38 PM [facility] LABTotal Cells Gkgqqyt99053/29/2025 12:38 PM [facility] LABNeutrophils Absolute, Manual9.13(H)1.20 - 7.70 x10*3/uL09/03/2025 12:38 PM [facility] LABManual nRBC per 100 Cells0.00.0 - 0.0 %09/03/2025 12:38 PM [facility] LABRB MorphologyNo significant RBC morphology cjoiqzi5809/03/2025 12:38 PM [facility] LABSpecimen (Source)Anatomical Location / LateralityCollection Method / VolumeCollection TimeReceived TimeBloodVenous blood specimen / Unknown Venipuncture / Xvdxnkd6309/03/2025 8:42 AM EDT1 9:36 AM EDT Narrative Authorizing ProviderResult TypeResult StatusBishnu DAVID, [facility] BLOOD ORDERABLESFinal ResultPerforming OrganizationAddressCity/State/ZIP Code Phone Number [facility] [address] [phone] * (ABNORMAL) Coagulation Screen (09/03/2025 8:42 AM EDT) Only the most recent of5 resultswithin the time period is included. ComponentValueRef RangeTest MethodAnalysis TimePerformed AtPathologist Signature Uatjnbp90.2(H)9.8 - 12.4 seconds LAB COAGULATION METHOD 09/03/2025 10:08 AM [facility] LABINR1.5(H)0.9 - 1.1 LAB COAGULATION METHOD 09/03/2025 10:08 AM [facility] IZSwRBJ9114 - 36 seconds LAB COAGULATION METHOD 09/03/2025 10:08 AM [facility] LABSpecimen (Source)Anatomical Location / LateralityCollection Method / VolumeCollection TimeReceived TimeBloodVenous blood specimen / UnknownVenipuncture / Fifnxkb2409/03/2025 8:42 AM EDT1 9:36 AM EDT Narrative [facility] - 09/03/2025 10:08 AM EDT The APTT is no longer used for monitoring Unfractionated Heparin Therapy. For monitoring Heparin Therapy, use the Heparin Assay. Authorizing ProviderResult TypeResult StatusDayanna [facility] BLOOD ORDERABLESFinal ResultPerforming OrganizationAddressCity/State/ZIP CodePhone Number [facility] [address] [place] [phone] * Phosphorus (09/03/2025 8:42 AM EDT) Only the most recent of9 resultswithin the time period is included. ComponentValueRef RangeTest MethodAnalysis TimePerformed AtPathologist Signature Phosphorus2.52.5 - 4.9 mg/dL LAB CHEMISTRY METHOD 09/03/2025 10:51 AM [facility] LABSpecimen (Source)Anatomical Location / LateralityCollection Method / VolumeCollection TimeReceived TimeBloodVenous blood specimen / UnknownVenipuncture / Uwrhqmn9609/03/2025 8:42 AM EDT1 9:36 AM EDT Narrative Authorizing ProviderResult TypeResult StatusMicrickeyl Marcella Thompson APRN-PEDIATRICIAN/MEDICAL DOCTOR, DNPLAB BLOOD ORDERABLESFinal ResultPerforming OrganizationAddressCity/State/ZIP Code Phone Number [facility] [address] [place] [phone] * Magnesium (09/03/2025 8:42 AM EDT) Only the most recent of10 resultswithin the time period is included. ComponentValueRef RangeTest MethodAnalysis TimePerformed AtPathologist Signature Magnesium2.281.60 - 2.40 mg/dL LAB CHEMISTRY METHOD 09/03/2025 10:51 AM [facility] LABSpecimen (Source)Anatomical Location / LateralityCollection Method / VolumeCollection TimeReceived TimeBloodVenous blood specimen / UnknownVenipuncture / Xovmodm8209/03/2025 8:42 AM EDT1 9:36 AM EDT Narrative Authorizing ProviderResult TypeResult StatusMichael J Donna [employer] CONTROLLER-PEDIATRICIAN/MEDICAL DOCTOR, DNPLAB BLOOD ORDERABLESFinal ResultPerforming OrganizationAddressty/State/ZIP Code Phone Number [address] [phone] * (ABNORMAL) Hepatic Function Panel (09/03/2025 8:42 AM EDT) Only the most recent of9 resultswithin the time period is included. ComponentValueRef RangeTest MethodAnalysis TimePerformed AtPathologist Signature Albumin3.53.4 - 5.0 g/dL LAB CHEMISTRY METHOD 09/03/2025 10:50 AM [facility] LABBilirubin, Total0.90.0 - 1.2 mg/dL LAB CHEMISTRY METHOD 09/03/2025 10:50 AM [facility] LABBilirubin, Direct0.10.0 - 0.3 mg/dL LAB CHEMISTRY METHOD 09/03/2025 10:50 AM [facility] LABAlkaline Nlgubmdapbl410(H)33 - 110 U/L LAB CHEMISTRY METHOD 09/03/2025 10:50 AM [facility] RKEBND886 - 45 U/L LAB CHEMISTRY METHOD 09/03/2025 10:50 AM [facility] LABComment:Patients treated with Sulfasalazine may generate falsely decreased results for ALT.MTR937 - 39 U/L LAB CHEMISTRY METHOD 09/03/2025 10:50 AM [facility] LABTotal Protein7.56.4 - 8.2 g/dL LAB CHEMISTRY METHOD 09/03/2025 10:50 AM [facility] LABSpecimen (Source)Anatomical Location / LateralityCollection Method / VolumeCollection TimeReceived TimeBloodVenous blood specimen / UnknownVenipuncture / Hwofjqs2609/03/2025 8:42 AM EDT1 9:36 AM EDT Narrative Authorizing ProviderResult TypeResult StatusMichaelulu Thompson [employer] TRAFFIC CONTROLLER-PEDIATRICIAN/MEDICAL DOCTOR, DNPLAB BLOOD ORDERABLESFinal ResultPerforming OrganizationAddressCity/State/ZIP Code Phone Number [facility] [phone] [place] [address] * (ABNORMAL) Basic Metabolic Panel (09/03/2025 8:42 AM EDT) Only the most recent of8 resultswithin the time period is included. ComponentValueRef RangeTest MethodAnalysis TimePerformed AtPathologist Signature Vkjrote213(H)74 - 99 mg/dL LAB CHEMISTRY METHOD 09/03/2025 10:50 AM [facility] JTJKicqyo484(L)136 - 145 mmol/L LAB CHEMISTRY METHOD 09/03/2025 10:50 AM [facility] LABPotassium4.33.5 - 5.3 mmol/L LAB CHEMISTRY METHOD 09/03/2025 10:50 AM [facility] KKRIqbimmpc0493 - 107 mmol/L LAB CHEMISTRY METHOD 09/03/2025 10:50 AM [facility] ADPEryzriwbqeg86(L)21 - 32 mmol/L LAB CHEMISTRY METHOD 09/03/2025 10:50 AM [facility] LABComment:Bicarbonate results may be falsely elevated when Lactate Dehydrogenase (LDH) concentrations exceed 2,000 U/L due to a temporary reagent manufacturing issue. If significantly elevated LDH levels are suspected, interpret bicarbonate results with caution, correlate with the patient???s clinical status, and consider confirming CO2 values using a blood gas analyzer.Anion Wze3880 - 20 mmol/L LAB CHEMISTRY METHOD 09/03/2025 10:50 AM [facility] LABUrea Mggkdcty780 - 23 mg/dL LAB CHEMISTRY METHOD 09/03/2025 10:50 AM [facility] LABCreatinine1.93(H)0.50 - 1.05 mg/dL LAB CHEMISTRY METHOD 09/03/2025 10:50 AM [facility] QUWqRTR47(L)>60 mL/min/1.73m*2 LAB CHEMISTRY METHOD 09/03/2025 10:50 AM [facility] LABComment: Calculations of estimated GFR are performed using the 2020 CKD-EPI Study Refit equation without therace variable for the IDMS-Traceable creatinine methods. https://jasn.asnjournals.org/content//ASN.6815752498 Calcium8.98.6 - 10.6 mg/dL LAB CHEMISTRY METHOD 09/03/2025 10:50 AM [facility] LABSpecimen (Source)Anatomical Location / LateralityCollection Method / VolumeCollection TimeReceived TimeBloodVenous blood specimen / UnknownVenipuncture / Bgtjhyz2809/03/2025 8:42 AM EDT1 9:36 AM EDT Narrative Authorizing ProviderResult TypeResult StatusMicjordan Thompson [employer] TRAFFIC CONTROLLER-PEDIATRICIAN/MEDICAL DOCTOR, DNPLAB BLOOD ORDERABLESFinal ResultPerforming OrganizationAddressCity/State/ZIP Code Phone Number [facility] [address] [phone] * (ABNORMAL) POCT GLUCOSE (09/03/2025 7:50 AM EDT)ComponentValueRef RangeTest MethodAnalysis TimePerformed AtPathologist SignaturePOCT Flvpzjn652(H)74 - 99 mg/dL09/03/2025 7:53 AM [facility]TG[facility] LABSpecimen (Source)Anatomical Location / LateralityCollection Method / VolumeCollection TimeReceived TimeBloodCapillary blood specimen / Mlbuthz0809/03/2025 7:50 AM EDT1 7:53 AM EDT Narrative Authorizing ProviderResult TypeResult StatusRobert Boni [place] POINT OF CARE TEST DOCKED DEVICE UNSOLICITED RESULTSFinal ResultPerforming OrganizationAddress City/State/ZIP CodePhone Number [facility] [address] [phone] * ECG 12 lead (09/03/2025 6:23 AM EDT) Only the most recent of11 resultswithin the time period is included. ComponentValueRef RangeTest MethodAnalysis TimePerformed AtPathologist Signature Ventricular Fqgs89VXOMHULKnqzxi Usvi85MEYVKKYTH Okaeskhj470ksRFYJFQH Lzgtfxvc860 msMUSEQT Xeeuiald860hoTTEGKGC Calculation(Bazett)459msMUSEP Bxeo14hgdcsdjUYSLD Edsl68ybeiykrRTYYE Hhxo392pntggvcMEVMWOR Cnrze41uvikdHRRYG Yvyqv270vnKQYTL Onset 124msMUSEP Vtmrvu254yrCQANT Apgapa266ftGXEGRBY Effagzkmry852atQDKCVneonfun (Source)Anatomical Location / LateralityCollection Method / VolumeCollection TimeReceived Time09/03/2025 5:42 AM EDT1 12:39 PM EDT Narrative MUSE - 09/05/2025 12:39 PM EDT Normal sinus rhythm Inferior infarct , 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) Lateral injury pattern ACUTE MA / STEMI Consider right ventricular involvement in acute inferior infarct Abnormal ECG When compared with ECG of 01-SEP-2025 06:28, Serial changes of Anteroseptal infarct Present Confirmed by Reid Gastelum ([id number]) on 09/05/2025 12:39:18 PM Procedure Note Reid Gastelum MD - 09/05/2025 Normal sinus rhythm Inferior infarct , 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) Lateral injury pattern ACUTE MA / STEMI Consider right ventricular involvement in acute inferior infarct Abnormal ECG When compared with ECG of 01-SEP-2025 06:28, Serial changes of Anteroseptal infarct Present Confirmed by Reid Gastelum ([id number]) on 09/05/2025 12:39:18 PM Authorizing ProviderResult TypeResult StatusBishnu Thompson APRN-PEDIATRICIAN/MEDICAL DOCTOR, DNPECG ORDERABLESFinal ResultPerforming OrganizationAddressCity/State/ZIP CodePhone Number MUSE * (ABNORMAL) POCT GLUCOSE (09/02/2025 7:26 PM EDT)ComponentValueRef RangeTest MethodAnalysis TimePerformed AtPathologist SignaturePOCT Tciqifa152(H)74 - 99 mg/dL09/02/2025 7:45 PM [facility] LABSpecimen (Source)Anatomical Location / LateralityCollection Method / VolumeCollection TimeReceived TimeBloodCapillary blood specimen / Eezeatc0609/02/2025 7:26 PM EDT1 7:45 PM EDT Narrative Authorizing ProviderResult TypeResult StatusKwame [place] POINT OF CARE TEST DOCKED DEVICE UNSOLICITED RESULTSFinal ResultPerforming OrganizationAddress City/State/[place] [phone] * (ABNORMAL) Renal Function Panel (09/02/2025 5:04 PM EDT) Only the most recent of3 resultswithin the time period is included. ComponentValueRef RangeTest MethodAnalysis TimePerformed AtPathologist Signature Artkezt388(H)74 - 99 mg/dL LAB CHEMISTRY METHOD 09/02/2025 6:23 PM [facility] THLTnmvwl886(L)136 - 145 mmol/L LAB CHEMISTRY METHOD 09/02/2025 6:23 PM [facility] LABPotassium4.63.5 - 5.3 mmol/L LAB CHEMISTRY METHOD 09/02/2025 6:23 PM [facility] MLKPtefhiaa3801 - 107 mmol/L LAB CHEMISTRY METHOD 09/02/2025 6:23 PM [facility] BNFAkdtaornixs6253 - 32 mmol/L LAB CHEMISTRY METHOD 09/02/2025 6:23 PM [facility] LABComment:Bicarbonate results may be falsely elevated when Lactate Dehydrogenase (LDH) concentrations exceed 2,000 U/L due to a temporary reagent manufacturing issue. If significantly elevated LDH levels are suspected, interpret bicarbonate results with caution, correlate with the patient???s clinical status, and consider confirming CO2 values using a blood gas analyzer.Anion Aea6953 - 20 mmol/L LAB CHEMISTRY METHOD 09/02/2025 6:23 PM [facility] LABUrea Qdgwvqff79(H)6 - 23 mg/dL LAB CHEMISTRY METHOD 09/02/2025 6:23 PM [facility] LABCreatinine1.96(H)0.50 - 1.05 mg/dL LAB CHEMISTRY METHOD 09/02/2025 6:23 PM [facility] STOcWIB78(L)>60 mL/min/1.73m*2 LAB CHEMISTRY METHOD 09/02/2025 6:23 PM [facility] LABComment: Calculations of estimated GFR are performed using the 2020 CKD-EPI Study Refit equation without therace variable for the IDMS-Traceable creatinine methods. https://jasn.asnjournals.org/content///ASN.4214375075 Calcium8.5(L)8.6 - 10.6 mg/dL LAB CHEMISTRY METHOD 09/02/2025 6:23 PM [facility] LABPhosphorus2.4(L)2.5 - 4.9 mg/dL LAB CHEMISTRY METHOD 09/02/2025 6:23 PM [facility] LABAlbumin3.3(L)3.4 - 5.0 g/dL LAB CHEMISTRY METHOD 09/02/2025 6:23 PM [facility] LABSpecimen (Source)Anatomical Location / Laterality Collection Method / VolumeCollection TimeReceived TimeBloodVenous blood specimen / UnknownVenipuncture / Trkxlgw9809/02/2025 5:04 PM EDT1 5:47 PM EDT Narrative Authorizing ProviderResult TypeResult StatusJeturoxi Shculz AIRWAY TRAFFIC CONTROLLER-CNPLAB BLOOD ORDERABLESFinal ResultPerforming OrganizationAddressCity/State/ZIP CodePhone Number [facility] [address] [facility] [address] [phone] * (ABNORMAL) Lipid Panel (09/02/2025 5:04 PM EDT)ComponentValueRef RangeTest MethodAnalysis TimePerformed AtPathologist QosydhpxyTuwoyhxbnik0482 - 199 mg/dL LAB CHEMISTRY METHOD 09/02/2025 6:52 PM [facility] LABComment: ?Age ?Desirable ?? Borderline High ?? High 0-19 Y 0 - 169 170 - 199 >/= 200 20-24 Y 0 - 189 190 - 224 >/= 225 >24 Y 0 - 199 200 - 239 >/= 240 All ranges are based on fasting samples. Specific therapeutic targets will vary based on patient-specific cardiac risk. Pediatric guidelines reference:Pediatrics 2011, 128(S5).Adult guidelines reference: NCEP ATPIII Guidelines,MARCO A 2001, 258:2486-97 Venipuncture immediately after or during the administration of Metamizole may lead to falsely low results. Testing should be performed immediately prior to Metamizole dosing. HDL-Ctnatdzdhiw80.4mg/dL LAB CHEMISTRY METHOD 09/02/2025 6:52 PM [facility] LABComment: Age ? Very Low ?? Low ? Normal ?High ?? 0-19 Y < 35 < 40 40-45 ---- 20-24 Y ---- < 40 >45 ---- >24 Y ---- < 40 40-60 >60 Cholesterol/HDL Ratio4.4 LAB CHEMISTRY METHOD 09/02/2025 6:52 PM [facility] LABComment: Ref Values Desirable < 3.4 High Risk > 5.0 LDL Dofjmpksoj07<=99 mg/dL LAB CHEMISTRY METHOD 09/02/2025 6:52 PM [facility] LABComment: ?Near ?? Borderline ?AGE ?Desirable ??Optimal ?High ? High ? Very High 0-19 Y 0 - 109 --- 110-129 >/= 130 ---- 20-24 Y 0 - 119 --- 120-159 >/= 160 ---- >24 Y 0 - 99 100-129 130-159 160-189 >/=190 LDL Cholesterol is calculated using the Friedewald equation. VLDL63(H)0 - 40 mg/dL LAB CHEMISTRY METHOD 09/02/2025 6:52 PM [facility] ITMWhswxukibhmqd274(H)0 - 149 mg/dL LAB CHEMISTRY METHOD 09/02/2025 6:52 PM [facility] LABComment: Age ?Desirable ?Borderline ? High ?Very High SEX:B ? mg/dL ? mg/dL ? mg/dL ?mg/dL <=14D 86-277 ---- ---- ---- 15D-365D ? 55-277 ? ---- ? ---- ?---- 1Y-9Y 0-74 75-99 >=100 ---- 10Y-19Y 0-89 90-129 >=130 ---- 20Y-24Y 0-114 115-149 >=150 ---- >= 25Y 0-149 150-199 200-499 >=500 Venipuncture immediately after or during the administration of Metamizole may lead to falsely low results. Testing should be performed immediately prior to Metamizole dosing. Non HDL Txvjkdqyoki9392 - 149 mg/dL LAB CHEMISTRY METHOD 09/02/2025 6:52 PM [facility] LABComment: ?Age ? Desirable ?? Borderline High ?? High ? Very High 0-19 Y 0 - 119 120 - 144 >/= 145 >/= 160 20-24 Y 0 - 149 150 - 189 >/= 190 ---- >24 Y 30 mg/dL above LDL Cholesterol goal Specimen (Source)Anatomical Location / LateralityCollection Method / Volume Collection TimeReceived TimeBloodVenous blood specimen / UnknownVenipuncture / Jgszjvh4709/02/2025 5:04 PM EDT1 5:47 PM EDT Narrative Authorizing ProviderResult TypeResult StatusSylvie Schulz AIRWAY TRAFFIC CONTROLLER-CNPLAB BLOOD ORDERABLESFinal ResultPerforming OrganizationAddressPremier [facility]/State/ZIP CodePhone Number [facility] [address] [place] [phone] * (ABNORMAL) POCT GLUCOSE (09/02/2025 4:30 PM EDT)ComponentValueRef RangeTest MethodAnalysis TimePerformed AtPathologist SignaturePOCT Bszzwkw053(H)74 - 99 mg/dL09/02/2025 4:35 PM [facility] LABSpecimen (Source)Anatomical Location / LateralityCollection Method / VolumeCollection TimeReceived TimeBloodCapillary blood specimen / Wgwalov8409/02/2025 4:30 PM EDT1 4:35 PM EDT Narrative Authorizing ProviderResult TypeResult StatusRobert Boni Cabrera [facility] POINT OF CARE TEST DOCKED DEVICE UNSOLICITED RESULTSFinal ResultPerforming OrganizationAddress City/State/ZIP CodePhone Number [facility] [address] [place] [phone] * (ABNORMAL) POCT GLUCOSE (09/02/2025 11:09 AM EDT)ComponentValueRef RangeTest MethodAnalysis TimePerformed AtPathologist SignaturePOCT Faulwrk319(H)74 - 99 mg/dL09/02/2025 11:11 AM EDTG[facility] LABSpecimen (Source)Anatomical Location / LateralityCollection Method / VolumeCollection TimeReceived TimeBloodCapillary blood specimen / Ujgmgsg5009/02/2025 11:09 AM EDT1 11:11 AM EDT Narrative Authorizing ProviderResult TypeResult StatusRobert Boni Rick JUAN POINT OF CARE TEST DOCKED DEVICE UNSOLICITED RESULTSFinal ResultPerforming OrganizationAddress City/State/ZIP CodePhone Number [facility] [address] [place] [phone] * Lavender Top (09/02/2025 8:25 AM EDT)ComponentValueRef RangeTest Method Analysis TimePerformed AtPathologist SignatureExtra TubeHold for add-ons. 09/02/2025 8:25 AM EDMAR[facility] LABComment:Auto resulted.Specimen (Source) Anatomical Location / LateralityCollection Method / VolumeCollection Time Received TimeBloodVenous blood specimen / Urcrzmq6709/01/2025 8:31 AM EDT Narrative Authorizing ProviderResult TypeResult StatusMertert Boni SamuelsRick MDLAB BLOOD ORDERABLESFinal ResultPerforming OrganizationAddressPrem[facility]/ZIP CodePhone Number [facility] [address] [place] [phone] * PST Top (09/02/2025 8:25 AM EDT)ComponentValueRef RangeTest MethodAnalysis TimePerformed AtPathologist SignatureExtra TubeHold for add-ons.09/02/2025 8:25 AM EDMAR[facility] LABComment:Auto resulted.Specimen (Source)Anatomical Location / LateralityCollection Method / VolumeCollection TimeReceived TimeBloodVenous blood specimen / Qhwqtfx8609/01/2025 8:32 AM EDT Narrative Authorizing ProviderResult TypeResult StatusRobert Boni SamuelsRick MDLAB BLOOD ORDERABLESFinal ResultPerforming OrganizationAddressPrem[facility]/State/ZIP CodePhone Number [facility] [address] [place] [phone] * Heparin Assay (09/02/2025 7:49 AM EDT) Only the most recent of13 resultswithin the time period is included. ComponentValueRef RangeTest MethodAnalysis TimePerformed AtPathologist Signature Heparin Unfractionated0.3See Comment Below for Therapeutic Ranges IU/mL LAB COAGULATION METHOD 09/02/2025 8:23 AM [facility] LABSpecimen (Source)Anatomical Location / Laterality Collection Method / VolumeCollection TimeReceived TimeBloodVenous blood specimen / UnknownVenipuncture / Xslqcfw3909/02/2025 7:49 AM EDT1 8:08 AM EDT Narrative [facility] - 09/02/2025 8:23 AM EDT The therapeutic reference range for UFH may be either 0.3-0.6 IU/mL or 0.3-0.7 IU/mL based on the clinical setting for anticoagulant therapy and the associated nomogram used. For Heparin dosing guidelines based on clinical scenario and Heparin Assay results, please refer to local Pharmacy and the [facility] Guidelines for Anticoagulation Therapy available on the [facility] intranet at: [email or web address].aspx Authorizing ProviderResult TypeResult StatusBishnu Thompson APRN-PEDIATRICIAN/MEDICAL DOCTOR, DNPLAB BLOOD ORDERABLESFinal ResultPerforming OrganizationAddressCity/State/ZIP Code Phone Number [facility] [address] [phone] * (ABNORMAL) POCT GLUCOSE (09/02/2025 7:23 AM EDT)ComponentValueRef RangeTest MethodAnalysis TimePerformed AtPathologist SignaturePOCT Witvpta390(H)74 - 99 mg/dL09/02/2025 7:24 AM ED[facility] LABSpecimen (Source)Anatomical Location / LateralityCollection Method / VolumeCollection TimeReceived TimeBloodCapillary blood specimen / Jcenfnb0709/02/2025 7:23 AM EDT1 7:24 AM EDT Narrative Authorizing ProviderResult TypeResult StatusKwame Cabrera MDLAB POINT OF CARE TEST DOCKED DEVICE UNSOLICITED RESULTSFinal ResultPerforming OrganizationAddress City/State/ZIP CodePhone Number [facility] [address] [phone] * (ABNORMAL) POCT GLUCOSE (09/01/2025 9:52 PM EDT)ComponentValueRef RangeTest MethodAnalysis TimePerformed AtPathologist SignaturePOCT Tpkpjdl674(H)74 - 99 mg/dL09/01/2025 9:56 PM EDTGUTHRIE [facility] LABSpecimen (Source)Anatomical Location / LateralityCollection Method / VolumeCollection TimeReceived TimeBloodCapillary blood specimen / Capatos5309/01/2025 9:52 PM EDT1 9:56 PM EDT Narrative Authorizing ProviderResult TypeResult StatusRobert Boni Cabrera MDL[facility] POINT OF CARE TEST DOCKED DEVICE UNSOLICITED RESULTSFinal ResultPerforming OrganizationAddWor[facility]/ZIP CodePhone Number [facility] [address] [phone] * (ABNORMAL) POCT GLUCOSE (09/01/2025 4:07 PM EDT)ComponentValueRef RangeTest MethodAnalysis TimePerformed AtPathologist SignaturePOCT Kcwbxbl905(H)74 - 99 mg/dL09/01/2025 4:12 PM EDMAR[facility] LABSpecimen (Source)Anatomical Location / LateralityCollection Method / VolumeCollection TimeReceived TimeBloodCapillary blood specimen / Omkkyhs2109/01/2025 4:07 PM EDT1 4:12 PM EDT Narrative Authorizing ProviderResult TypeResult StatusRobert Boni Cabrera MDLAB POINT OF CARE TEST DOCKED DEVICE UNSOLICITED RESULTSFinal ResultPerforming OrganizationAddWorcester State Hospital/[facility]/ZIP CodePhone Number [facility] [phone] [place], [place] [phone] * (ABNORMAL) POCT GLUCOSE (09/01/2025 12:27 PM EDT)ComponentValueRef RangeTest MethodAnalysis TimePerformed AtPathologist SignaturePOCT Fhkaxfx802(H)74 - 99 mg/dL09/01/2025 12:29 PM EDTGUTHRIE [facility] LABSpecimen (Source)Anatomical Location / LateralityCollection Method / VolumeCollection TimeReceived TimeBloodCapillary blood specimen / Sbzvowi3709/01/2025 12:27 PM EDT1 12:29 PM EDT Narrative Authorizing ProviderResult TypeResult StatusRobert Boni Cabrera MDL[facility] POINT OF CARE TEST DOCKED DEVICE UNSOLICITED RESULTSFinal ResultPerforming OrganizationAddWorcester [facility]/ZIP CodePhone Number [facility] [phone] [place] [phone] * (ABNORMAL) POCT GLUCOSE (09/01/2025 8:22 AM EDT)ComponentValueRef RangeTest MethodAnalysis TimePerformed AtPathologist SignaturePOCT Dgcqcjo024(H)74 - 99 mg/dL09/01/2025 8:23 AM EDTGUTHRIE [facility] LABSpecimen (Source)Anatomical Location / LateralityCollection Method / VolumeCollection TimeReceived TimeBloodCapillary blood specimen / Ayhgpsp0009/01/2025 8:22 AM EDT1 8:23 AM EDT Narrative Authorizing ProviderResult TypeResult StatusRobert Boni Cabrera [facility] POINT OF CARE TEST DOCKED DEVICE UNSOLICITED RESULTSFinal ResultPerforming OrganizationAddress City/State/ZIP CodePhone Number [facility] [address] [place] [address] * Morphology (09/01/2025 3:46 AM EDT)ComponentValueRef RangeTest MethodAnalysis TimePerformed AtPathologist SignatureRBC MorphologyNo significant RBC morphology fuibpar4109/01/2025 4:35 AM EDTGUTHRIE [facility]OY [facility] LABSpecimen (Source)Anatomical Location / LateralityCollection Method / VolumeCollection TimeReceived Time BloodVenous blood specimen / UnknownVenipuncture / Crovhel0809/01/2025 3:46 AM EDT1 4:05 AM EDT Narrative Authorizing ProviderResult TypeResult StatusMichaelulu Thompson AIRWAY TRAFFIC CONTROLLER-PEDIATRICIAN/MEDICAL DOCTOR, DNPLAB BLOOD ORDERABLESFinal ResultPerforming OrganizationAddressCity/State/ZIP Code Phone Number [facility] [address] [phone] * (ABNORMAL) POCT GLUCOSE (08/31/2025 7:20 PM EDT)ComponentValueRef RangeTest MethodAnalysis TimePerformed AtPathologist SignaturePOCT Oawrkpi289(H)74 - 99 mg/dL08/31/2025 7:23 PM [facility] LABSpecimen (Source)Anatomical Location / LateralityCollection Method / VolumeCollection TimeReceived TimeBloodCapillary blood specimen / Ybnpjmj9708/31/2025 7:20 PM EDT1 7:23 PM EDT Narrative Authorizing ProviderResult TypeResult StatusRobert Boni [place] POINT OF CARE TEST DOCKED DEVICE UNSOLICITED RESULTSFinal ResultPerforming Organization AddressCity/State/ZIP CodePhone Number [facility] [address] [place] [address] * (ABNORMAL) POCT GLUCOSE (08/31/2025 3:59 PM EDT)ComponentValueRef RangeTest MethodAnalysis TimePerformed AtPathologist SignaturePOCT Zkftdwg904(H)74 - 99 mg/dL08/31/2025 4:01 PM [facility] LABSpecimen (Source)Anatomical Location / LateralityCollection Method / VolumeCollection TimeReceived TimeBloodCapillary blood specimen / Kfjwwhl2308/31/2025 3:59 PM EDT1 4:01 PM EDT Narrative Authorizing ProviderResult TypeResult StatusRobert Boni Lou [facility] POINT OF CARE TEST DOCKED DEVICE UNSOLICITED RESULTSFinal ResultPerforming Organization AddressCity/State/ZIP CodePhone Number [facility] [id number] [place] [address] * (ABNORMAL) POCT GLUCOSE (08/31/2025 11:43 AM EDT)ComponentValueRef RangeTest MethodAnalysis TimePerformed AtPathologist SignaturePOCT Gomvdpz006(H)74 - 99 mg/dL08/31/2025 11:44 AM [facility] LABSpecimen (Source)Anatomical Location / LateralityCollection Method / VolumeCollection TimeReceived TimeBloodCapillary blood specimen / Gdmelnh0408/31/2025 11:43 AM EDT1 11:44 AM EDT Narrative Authorizing ProviderResult TypeResult StatusRobert Boni Lou MDLAB POINT OF CARE TEST DOCKED DEVICE UNSOLICITED RESULTSFinal ResultPerforming Organization AddressCity/State/ZIP CodePhone Number [facility] [id number] [place] [address] * (ABNORMAL) POCT GLUCOSE (08/31/2025 7:32 AM EDT)ComponentValueRef RangeTest MethodAnalysis TimePerformed AtPathologist SignaturePOCT Ejhgmjf227(H)74 - 99 mg/dL08/31/2025 7:34 AM [facility] LABSpecimen (Source)Anatomical Location / LateralityCollection Method / VolumeCollection TimeReceived TimeBloodCapillary blood specimen / Ykuadmd3408/31/2025 7:32 AM EDT1 7:34 AM EDT Narrative Authorizing ProviderResult TypeResult StatusRobert Boni [place] POINT OF CARE TEST DOCKED DEVICE UNSOLICITED RESULTSFinal ResultPerforming Organization AddressCity/State/ZIP CodePhone Number [facility] [address] [facility] [address] [place] [address] * (ABNORMAL) Troponin I, High Sensitivity (08/31/2025 7:24 AM EDT) Only the most recent of11 resultswithin the time period is included. ComponentValueRef RangeTest MethodAnalysis TimePerformed AtPathologist Signature Troponin I, High Sensitivity (CMC)11,777(HH)0 - 34 ng/L LAB IMMUNOASSAY METHOD 08/31/2025 10:09 AM [facility] LABSpecimen (Source)Anatomical Location / LateralityCollection Method / VolumeCollection TimeReceived TimeBloodVenous blood specimen / UnknownVenipuncture / Uqwmdfw8708/31/2025 7:24 AM EDT1 7:49 AM EDT Narrative [facility] - 08/31/2025 10:09 AM EDT Less than 99th percentile of normal range cutoff- Female and children under 18 years old <35 ng/L; Male <54 ng/L: Negative Repeat testing should be performed if clinically indicated. Female and children under 18 years old 35-120 ng/L; Male 54-120 ng/L: Consistent with possible cardiac damage and possible increased clinical risk. Serial measurements may help to assess extent of myocardial damage. >120 ng/L: Consistent with cardiac damage, increased clinical risk and myocardial infarction. Serial measurements may help assess extent of myocardial damage. NOTE: Children less than 1 year old may have higher baseline troponin levels and results should be interpreted in conjunction with the overall clinical context. NOTE: Troponin I testing is performed using a different testing methodology at [facility] than at other [facility]. Direct result comparisons should only be made within the same method. Authorizing ProviderResult TypeResult StatusRobert Boni SinLou AZLAB BLOOD ORDERABLESFinal ResultPerforming OrganizationAddressCity/State/ZIP CodePhone Number [address] [address] * (ABNORMAL) POCT GLUCOSE (08/30/2025 8:15 PM EDT)ComponentValueRef RangeTest MethodAnalysis TimePerformed AtPathologist SignaturePOCT Mimgmyl244(H)74 - 99 mg/dL08/30/2025 8:21 PM [facility] LABSpecimen (Source)Anatomical Location / LateralityCollection Method / VolumeCollection TimeReceived TimeBloodCapillary blood specimen / Uvvylew2508/30/2025 8:15 PM EDT1 8:21 PM EDT Narrative Authorizing ProviderResult TypeResult StatusRobert Boni Lou AZLAB POINT OF CARE TEST DOCKED DEVICE UNSOLICITED RESULTSFinal ResultPerforming Organization AddressCity/State/ZIP CodePhone Number [address] [address] * (ABNORMAL) POCT GLUCOSE (08/30/2025 4:50 PM EDT)ComponentValueRef RangeTest MethodAnalysis TimePerformed AtPathologist SignaturePOCT Psilsql613(H)74 - 99 mg/dL08/30/2025 4:58 PM [facility] LABSpecimen (Source)Anatomical Location / LateralityCollection Method / VolumeCollection TimeReceived TimeBloodCapillary blood specimen / Vcaujgi8808/30/2025 4:50 PM EDT1 4:58 PM EDT Narrative Authorizing ProviderResult TypeResult StatusRobert Boni SinLou AZLAB POINT OF CARE TEST DOCKED DEVICE UNSOLICITED RESULTSFinal ResultPerforming Organization AddressCity/State/ZIP CodePhone Number [address] [address] * Extra Urine Topete Tube (08/30/2025 12:42 PM EDT)ComponentValueRef RangeTest MethodAnalysis TimePerformed AtPathologist SignatureExtra Tube09/01/2025 8:33 AM EDTUHCMC LABSpecimen (Source)Anatomical Location / LateralityCollection Method / VolumeCollection TimeReceived TimeUrineUrine specimen / Unknown 08/30/2025 12:42 PM EDT1 1:03 PM EDT Narrative Authorizing ProviderResult TypeResult StatusSara Muriel Rendon APRN-[facility] URINE ORDERABLESFinal ResultPerforming OrganizationAddressCity/State/ZIP CodePhone Number [facility] [address] [phone] * (ABNORMAL) Microscopic Only, Urine (08/30/2025 12:42 PM EDT) Only the most recent of2 resultswithin the time period is included. ComponentValueRef RangeTest MethodAnalysis TimePerformed AtPathologist Signature WBC, Vamoh57-92(A)1-5, NONE /HPF08/30/2025 1:37 PM [facility] LABRBC, Urine1-2 NONE, 1-2, 3-5 /HPF08/30/2025 1:37 PM [facility] LABSquamous Epithelial Cells, Urine1-9 (SPARSE)Reference range not established. /HPF08/30/2025 1:37 PM EDT [facility] LABGranular Casts, Urine2+(A)NONE /LP08/30/2025 1:37 PM [facility] Specimen (Source)Anatomical Location / LateralityCollection Method / Volume Collection TimeReceived TimeUrineUrine specimen / Xthbdtz2008/30/2025 12:42 PM EDT 08/30/2025 1:02 PM EDT Narrative Authorizing ProviderResult TypeResult StatusSara Muriel Rendon APRN-[facility] URINE ORDERABLESFinal ResultPerforming OrganizationAddressCity/State/ZIP CodePhone Number [facility] [address] [address] * (ABNORMAL) Urinalysis with Reflex Culture (08/30/2025 12:42 PM EDT)Component ValueRef RangeTest MethodAnalysis TimePerformed AtPathologist SignatureColor, EowciUlpfx-YrfnisGbwtr-Lsjckz, Yellow, Dark-Kurvxq8708/30/2025 1:37 PM [facility]TG[facility] LABAppearance, UrineTurbid(N)Clear08/30/2025 1:37 PM [facility] LABSpecific [place], Urine1.0261.005 - 1.3762808/30/2025 1:37 PM [facility] LABpH, Urine5.5 5.0, 5.5, 6.0, 6.5, 7.0, 7.5, 8.010 1:37 PM [facility] LABProtein, Urine 50 (1+)(A)NEGATIVE, 10 (TRACE), 20 (TRACE) mg/dL08/30/2025 1:37 PM [facility] LABGlucose, Urine30 (TRACE)(A)Normal mg/dL08/30/2025 1:37 PM [facility] LAB Blood, Urine0.5 (2+)(A)NEGATIVE mg/dL08/30/2025 1:37 PM [facility] LABKetones, UrineNEGATIVENEGATIVE mg/dL08/30/2025 1:37 PM [facility] LABBilirubin, Urine NEGATIVENEGATIVE mg/dL08/30/2025 1:37 PM [facility] LABUrobilinogen, UrineNormal Normal mg/dL08/30/2025 1:37 PM [facility] LABNitrite, UrineNEGATIVENEGATIVE 08/30/2025 1:37 PM [facility] LABLeukocyte Esterase, Jfljh967 Claudine/uL(A)NEGATIVE 08/30/2025 1:37 PM [facility] LABSpecimen (Source)Anatomical Location / LateralityCollection Method / VolumeCollection TimeReceived TimeUrineUrine specimen / Zbtuizr5908/30/2025 12:42 PM EDT1 1:02 PM EDT Narrative Authorizing ProviderResult TypeResult StatusSara Muriel Rendon APRN-[facility] URINE ORDERABLESFinal ResultPerforming OrganizationAddressCity/State/ZIP CodePhone Number [facility] [address] [phone] * (ABNORMAL) Urine Culture (08/30/2025 12:42 PM EDT)ComponentValueRef RangeTest MethodAnalysis TimePerformed AtPathologist SignatureUrine Bjciuyq31,000 - 80,000 CFU/mL Escherichia coli(A) MICROSCAN 09/01/2025 12:15 PM [facility] LABSpecimen (Source)Anatomical Location / LateralityCollection Method / VolumeCollection TimeReceived TimeUrineUrine specimen / Oxgtjhx1108/30/2025 12:42 PM EDT1 1:37 PM EDT Narrative OrganismAntibioticMethodSusceptibilityEscherichia coliAmpicillinMICROSCAN <=8.000 ug/ml: Susceptible Escherichia coliCefazolinMICROSCAN <=2 ug/ml: Susceptible Escherichia coliCefazolin (uncomplicated UTIs only)MICROSCAN <=2 ug/ml: Susceptible Escherichia coliPiperacillin/TazobactamMICROSCAN <=8.000 ug/ml: Susceptible Escherichia coliNitrofurantoinMICROSCAN <=32 ug/ml: Susceptible Escherichia coliTrimethoprim/SulfamethoxazoleMICROSCAN <=0.5/9.5 ug/ml: Susceptible Escherichia coliCiprofloxacinMICROSCAN <=0.250 ug/ml: Susceptible Escherichia coliLevofloxacinMICROSCAN <=0.500 ug/ml: Susceptible Escherichia coliGentamicinMICROSCAN <=2.000 ug/ml: Susceptible Authorizing ProviderResult TypeResult StatusSara Muriel Rendon APRN-[facility] MICROBIOLOGY - GENERAL ORDERABLESFinal ResultPerforming OrganizationAddress City/State/ZIP CodePhone Number [facility] [phone] [place], [place] [phone] * (ABNORMAL) aPTT - baseline (08/30/2025 11:58 AM EDT)ComponentValueRef Range Test MethodAnalysis TimePerformed AtPathologist UhycbzznsyUUZ62(L)26 - 36 seconds LAB COAGULATION METHOD 08/30/2025 12:36 PM [facility] LABSpecimen (Source)Anatomical Location / LateralityCollection Method / VolumeCollection TimeReceived TimeBloodVenous blood specimen / UnknownVenipuncture / Dkazspj0308/30/2025 11:58 AM EDT1 12:11 PM EDT Narrative [facility] - 08/30/2025 12:36 PM EDT The APTT is no longer used for monitoring Unfractionated Heparin Therapy. For monitoring Heparin Therapy, use the Heparin Assay. Authorizing ProviderResult TypeResult StatusDayanna Rendon APRN-CNPLAB BLOOD ORDERABLESFinal ResultPerforming OrganizationAddressCity/State/ZIP CodePhone Number [facility] [address] [address] * Protime-INR (08/30/2025 11:58 AM EDT)ComponentValueRef RangeTest Method Analysis TimePerformed AtPathologist ZgqczeohnHysqmpq37.89.8 - 12.4 seconds LAB COAGULATION METHOD 08/30/2025 12:36 PM [facility] LABINR1.10.9 - 1.1 LAB COAGULATION METHOD 08/30/2025 12:36 PM [facility] LABSpecimen (Source)Anatomical Location / LateralityCollection Method / VolumeCollection TimeReceived TimeBloodVenous blood specimen / UnknownVenipuncture / Duyvkcy1508/30/2025 11:58 AM EDT1 12:11 PM EDT Narrative Authorizing ProviderResult TypeResult StatusDayanna Rendon APRN-CNPLAB BLOOD ORDERABLESFinal ResultPerforming OrganizationAddressCity/State/ZIP CodePhone Number [facility] [address] [place] [phone] * (ABNORMAL) POCT GLUCOSE (08/30/2025 11:39 AM EDT)ComponentValueRef RangeTest MethodAnalysis TimePerformed AtPathologist SignaturePOCT Cvmfwyi667(H)74 - 99 mg/dL08/30/2025 11:40 AM [facility] LABSpecimen (Source)Anatomical Location / LateralityCollection Method / VolumeCollection TimeReceived TimeBloodCapillary blood specimen / Twvfvox4208/30/2025 11:39 AM EDT1 11:40 AM EDT Narrative Authorizing ProviderResult TypeResult StatusKwame [place] POINT OF CARE TEST DOCKED DEVICE UNSOLICITED RESULTSFinal ResultPerforming Organization AddressCity/State/ZIP CodePhone Number [facility] [phone] [place] [address] * (ABNORMAL) POCT GLUCOSE (08/30/2025 7:38 AM EDT)ComponentValueRef RangeTest MethodAnalysis TimePerformed AtPathologist SignaturePOCT Jxgolmn892(H)74 - 99 mg/dL08/30/2025 7:40 AM [facility] LABSpecimen (Source)Anatomical Location / LateralityCollection Method / VolumeCollection TimeReceived TimeBloodCapillary blood specimen / Ykbeegt5808/30/2025 7:38 AM EDT1 7:40 AM EDT Narrative Authorizing ProviderResult TypeResult StatusRobert Boni [place] POINT OF CARE TEST DOCKED DEVICE UNSOLICITED RESULTSFinal ResultPerforming Organization AddressCity/State/ZIP CodePhone Number [facility] [phone] [place], [place] [phone] * (ABNORMAL) Drug Screen, Urine (08/30/2025 4:08 AM EDT)ComponentValueRef Range Test MethodAnalysis TimePerformed AtPathologist SignatureAmphetamine Screen, UrinePresumptive NegativePresumptive Negative LAB CHEMISTRY METHOD 08/30/2025 10:53 AM [facility] LABComment: CUTOFF LEVEL: 500 NG/ML Cross-reactivity has been reported with high concentrations of the following drugs: buproprion, chloroquine, chlorpromazine, ephedrine, mephentermine, fenfluramine, phentermine, phenylpropanolamine, pseudoephedrine, and propranolol. Barbiturate Screen, UrinePresumptive NegativePresumptive Negative LAB CHEMISTRY METHOD 08/30/2025 10:53 AM [facility] LABComment:CUTOFF LEVEL: 200 NG/MLBenzodiazepines Screen, UrinePresumptive Positive(A)Presumptive Negative LAB CHEMISTRY METHOD 08/30/2025 10:53 AM [facility] LABComment:CUTOFF LEVEL: 200 NG/MLCannabinoid Screen, UrinePresumptive NegativePresumptive Negative LAB CHEMISTRY METHOD 08/30/2025 10:53 AM [facility] LABComment:CUTOFF LEVEL: 50 NG/MLCocaine Metabolite Screen, UrinePresumptive NegativePresumptive Negative LAB CHEMISTRY METHOD 08/30/2025 10:53 AM [facility] LABComment:CUTOFF LEVEL: 150 NG/MLFentanyl Screen, UrinePresumptive Positive(A)Presumptive Negative LAB CHEMISTRY METHOD 08/30/2025 10:53 AM [facility] LABComment:CUTOFF LEVEL: 5 NG/MLOpiate Screen, UrinePresumptive Positive(A)Presumptive Negative LAB CHEMISTRY METHOD 08/30/2025 10:53 AM [facility] LABComment: CUTOFF LEVEL: 300 NG/ML The opiate screen does not detect fentanyl, meperidine, or tramadol. Oxycodone is not consistently detected (refer to Oxycodone Screen, Urine result). Oxycodone Screen, UrinePresumptive Positive(A)Presumptive Negative LAB CHEMISTRY METHOD 08/30/2025 10:53 AM [facility] LABComment: CUTOFF LEVEL: 100 NG/ML This test will accurately detect both oxycodone and oxymorphone. PCP Screen, UrinePresumptive NegativePresumptive Negative LAB CHEMISTRY METHOD 08/30/2025 10:53 AM [facility] LABComment: CUTOFF LEVEL: ??25 NG/ML Cross-reactivity has been reported with dextromethorphan. Methadone Screen, UrinePresumptive NegativePresumptive Negative LAB CHEMISTRY METHOD 08/30/2025 10:53 AM [facility] LABComment: CUTOFF LEVEL: 150 NG/ML The metabolite I-iayah-phlmogqrfrxoji (LAAM) is not detected by this method in concentrations that would be found in the urine of patients on LAAM therapy. Specimen (Source)Anatomical Location / LateralityCollection Method / Volume Collection TimeReceived TimeUrineUrine specimen / Lereqrt4708/30/2025 4:08 AM EDT 08/30/2025 6:06 AM EDT Narrative [facility] - 08/30/2025 10:53 AM EDT Drug screen results are presumptive and should not be used to assess compliance with prescribed medication. Contact the performing [facility] laboratory to add-on definitive confirmatory testing if clinically indicated. Toxicology screening results are reported qualitatively. The concentration must ??be greater than or equal to the cutoff to be reported as positive. The concentration at which the screening test can detect an individual drug or metabolite varies. The absence of expected drug(s) and/or drug metabolite(s) may indicate non-compliance, inappropriate timing of specimen collection relative to drug administration, poor drug absorption, diluted/adulterated urine, or limitations of testing. For medical purposes only; not valid for forensic use. Interpretive questions should be directed to the laboratory medical directors. Authorizing ProviderResult TypeResult StatusDayanna DOMINGUEZ URINE ORDERABLESFinal ResultPerforming OrganizationAddressty/[facility] CodePhone Number [facility] [phone] [place], [place] [phone] * Urea Nitrogen, Urine Random (08/30/2025 4:08 AM EDT)ComponentValueRef Range Test MethodAnalysis TimePerformed AtPathologist SignatureUrea Nitrogen, Urine Klcxau718bv/dL LAB CHEMISTRY METHOD 08/30/2025 7:00 AM [facility] LABCreatinine, Urine Zliqyq517.120.0 - 320.0 mg/dL LAB CHEMISTRY METHOD 08/30/2025 7:00 AM [facility] LABUrea Nitrogen/Creatinine Ratio2.3Not established. g/g creat LAB CHEMISTRY METHOD 08/30/2025 7:00 AM [facility] LABSpecimen (Source)Anatomical Location / Laterality Collection Method / VolumeCollection TimeReceived TimeUrineUrine specimen / Cxtopid7808/30/2025 4:08 AM EDT1 6:06 AM EDT Narrative Authorizing ProviderResult TypeResult StatusBishnu DAVID [facility] URINE ORDERABLESFinal ResultPerforming OrganizationAddressty/State/ZIP Code Phone Number [facility] [phone] [place], [place] [phone] * Urine electrolytes (08/30/2025 4:08 AM EDT)ComponentValueRef RangeTest Method Analysis TimePerformed AtPathologist SignatureSodium, Urine Fiqbxl55aiun/L LAB CHEMISTRY METHOD 08/30/2025 7:00 AM [facility] LABSodium/Creatinine Ubgkz76Zbs established. mmol/g Creat LAB CHEMISTRY METHOD 08/30/2025 7:00 AM [facility] LABPotassium, Urine Fmvxjr86gfrg/L LAB CHEMISTRY METHOD 08/30/2025 7:00 AM [facility] LABPotassium/Creatinine Tnvoy81Dqu established mmol/g Creat LAB CHEMISTRY METHOD 08/30/2025 7:00 AM [facility] LABChloride, Urine Random<15mmol/L LAB CHEMISTRY METHOD 08/30/2025 7:00 AM [facility] LABChloride/Creatinine Ratio08/30/2025 7:00 AM EDT [facility] LABComment:One or more analytes used in this calculation is outside of the analytical measurement range. Calculation cannot be performed.Creatinine, Urine Aoties454.120.0 - 320.0 mg/dL LAB CHEMISTRY METHOD 08/30/2025 7:00 AM [facility] LABSpecimen (Source)Anatomical Location / Laterality Collection Method / VolumeCollection TimeReceived TimeUrineUrine specimen / Bxrnpvw1808/30/2025 4:08 AM EDT1 6:06 AM EDT Narrative Authorizing ProviderResult TypeResult StatusMicjordan Thompson AIRWAY TRAFFIC CONTROLLER-PEDIATRICIAN/MEDICAL DOCTOR, [facility] URINE ORDERABLESFinal ResultPerforming OrganizationAddressCity/State/ZIP Code Phone Number [facility] [address] [facility] [phone] [place] [address] * (ABNORMAL) Urinalysis (no culture) (08/30/2025 4:08 AM EDT)ComponentValueRef RangeTest MethodAnalysis TimePerformed AtPathologist SignatureColor, Urine Light-Butler(N)Light-Yellow, Yellow, Dark-Ysehvi5408/30/2025 4:41 AM [facility] LABAppearance, UrineTurbid(N)Clear08/30/2025 4:41 AM [facility] LABSpecific [place], Urine1.0321.005 - 1.6867308/30/2025 4:41 AM [facility] LABpH, Urine5.5 5.0, 5.5, 6.0, 6.5, 7.0, 7.5, 8. 4:41 AM [facility] LABProtein, Urine 50 (1+)(A)NEGATIVE, 10 (TRACE), 20 (TRACE) mg/dL08/30/2025 4:41 AM [facility] LABGlucose, Urine50 (TRACE)(A)Normal mg/dL08/30/2025 4:41 AM [facility] LAB Blood, UrineOVER (3+)(A)NEGATIVE mg/dL08/30/2025 4:41 AM [facility] LABKetones, UrineNEGATIVENEGATIVE mg/dL08/30/2025 4:41 AM [facility] LABBilirubin, Urine NEGATIVENEGATIVE mg/dL08/30/2025 4:41 AM [facility] LABUrobilinogen, UrineNormal Normal mg/dL08/30/2025 4:41 AM [facility] LABNitrite, UrineNEGATIVENEGATIVE 08/30/2025 4:41 AM [facility] LABLeukocyte Esterase, Sfrfh652 Claudine/uL(A)NEGATIVE 08/30/2025 4:41 AM [facility] LABSpecimen (Source)Anatomical Location / LateralityCollection Method / VolumeCollection TimeReceived TimeUrineUrine specimen / Zyvmfzg9408/30/2025 4:08 AM EDT1 4:29 AM EDT Narrative [facility] - 08/30/2025 4:41 AM EDT OVER is reported when the result is greater than the clinically reportable range. Authorizing ProviderResult TypeResult StatusBishnu DAVID, [facility] URINE ORDERABLESFinal ResultPerforming OrganizationAddressCity/State/ZIP Code Phone Number [facility] [address] [address] * (ABNORMAL) POCT GLUCOSE (08/29/2025 8:31 PM EDT)ComponentValueRef RangeTest MethodAnalysis TimePerformed AtPathologist SignaturePOCT Ulwqzzv915(H)74 - 99 mg/dL08/29/2025 10:12 PM [facility] LABSpecimen (Source)Anatomical Location / LateralityCollection Method / VolumeCollection TimeReceived TimeBloodCapillary blood specimen / Ydhfedh2208/29/2025 8:31 PM EDT1 10:12 PM EDT Narrative Authorizing ProviderResult TypeResult StatusSanta Paredes MDLAB POINT OF CARE TEST DOCKED DEVICE UNSOLICITED RESULTSFinal ResultPerforming OrganizationAddress City/State/ZIP CodePhone Number [facility] [address] [address] * (ABNORMAL) POCT GLUCOSE (08/29/2025 3:43 PM EDT)ComponentValueRef RangeTest MethodAnalysis TimePerformed AtPathologist SignaturePOCT Gwwhrbn901(H)74 - 99 mg/dL08/29/2025 3:44 PM EDMAR[facility] LABSpecimen (Source)Anatomical Location / LateralityCollection Method / VolumeCollection TimeReceived TimeBloodCapillary blood specimen / Hzhobxk7108/29/2025 3:43 PM EDT1 3:44 PM EDT Narrative Authorizing ProviderResult TypeResult StatusSanta Paredes [facility] POINT OF CARE TEST DOCKED DEVICE UNSOLICITED RESULTSFinal ResultPerforming OrganizationAddW[facility]/ZIP CodePhone Number [facility] [address] [place] [phone] * (ABNORMAL) POCT GLUCOSE (08/29/2025 3:07 PM EDT)ComponentValueRef RangeTest MethodAnalysis TimePerformed AtPathologist SignaturePOCT Drmpdyy143(H)74 - 99 mg/dL08/29/2025 3:09 PM EDMAR[facility] LABSpecimen (Source)Anatomical Location / LateralityCollection Method / VolumeCollection TimeReceived TimeBloodCapillary blood specimen / Nkabggt5208/29/2025 3:07 PM EDT1 3:09 PM EDT Narrative Authorizing ProviderResult TypeResult StatusSanta Paredes [facility] POINT OF CARE TEST DOCKED DEVICE UNSOLICITED RESULTSFinal ResultPerforming OrganizationAddWorcester [facility] Hospital/[facility]/ZIP CodePhone Number [facility] [address] [place] [phone] * (ABNORMAL) POCT GLUCOSE (08/29/2025 11:07 AM EDT)ComponentValueRef RangeTest MethodAnalysis TimePerformed AtPathologist SignaturePOCT Soedfuc155(H)74 - 99 mg/dL08/29/2025 11:09 AM [facility] LABSpecimen (Source)Anatomical Location / LateralityCollection Method / VolumeCollection TimeReceived TimeBloodCapillary blood specimen / Xwjlgcs4508/29/2025 11:07 AM EDT1 11:09 AM EDT Narrative Authorizing ProviderResult TypeResult StatusSanta Paredes [facility] POINT OF CARE TEST DOCKED DEVICE UNSOLICITED RESULTSFinal ResultPerforming OrganizationAddWor[facility]/ZIP CodePhone Number [facility] [address] [place] [phone] * (ABNORMAL) POCT GLUCOSE (08/29/2025 7:58 AM EDT)ComponentValueRef RangeTest MethodAnalysis TimePerformed AtPathologist SignaturePOCT Cnhqxog319(H)74 - 99 mg/dL08/29/2025 8:00 AM EDMARIA PARHAM [facility]ALTH LABSpecimen (Source)Anatomical Location / LateralityCollection Method / VolumeCollection TimeReceived TimeBloodCapillary blood specimen / Mgygvdn5108/29/2025 7:58 AM EDT1 8:00 AM EDT Narrative Authorizing ProviderResult TypeResult StatusSanta Paredes [facility] POINT OF CARE TEST DOCKED DEVICE UNSOLICITED RESULTSFinal ResultPerforming OrganizationAddWor[facility]/ZIP CodePhone Number [facility] [address] [place] [phone] * (ABNORMAL) POCT GLUCOSE (08/28/2025 8:45 PM EDT)ComponentValueRef RangeTest MethodAnalysis TimePerformed AtPathologist SignaturePOCT Mhvaahm563(H)74 - 99 mg/dL08/28/2025 8:47 PM EDTGUTHRIE TROY [facility] LABSpecimen (Source)Anatomical Location / LateralityCollection Method / VolumeCollection TimeReceived TimeBloodCapillary blood specimen / Twiaxuf5908/28/2025 8:45 PM EDT1 8:47 PM EDT Narrative Authorizing ProviderResult TypeResult StatusSanta Paredes [facility] POINT OF CARE TEST DOCKED DEVICE UNSOLICITED RESULTSFinal ResultPerforming OrganizationAddW[facility]/ZIP CodePhone Number [facility] [address] [place] [phone] * Carotid duplex bilateral (08/28/2025 4:47 PM EDT)Anatomical RegionLaterality ModalityNeckUltrasoundSpecimen (Source)Anatomical Location / Laterality Collection Method / VolumeCollection TimeReceived Time08/29/2025 5:26 PM EDT 08/29/2025 5:26 PM EDT Impressions 08/29/2025 5:25 PM EDT 1. Limited evaluation of internal carotid artery velocities due to noise interference. 2. Less than 50% atheromatous plaque within the bilateral common carotid arteries. The remainder of the imaged vasculature appears patent. ?? I personally reviewed the images/study and I agree with the findings as stated by resident physician Wilfredo Moore MD. This study was interpreted at [facility], [place], [place]. ?? The velocity criteria are extrapolated from diameter data as defined by the Society of Radiologists in Ultrasound Consensus Conference Radiology 2003; 229;340-346. ?? MACRO: None ? Signed by: Alex Moreno 08/29/2025 5:25 PM Dictation workstation: ?? [id number] Narrative 08/29/2025 5:25 PM EDT Interpreted By: Alex Moreno and Oscar Villalobos STUDY: VASC US CAROTID ARTERY DUPLEX BILATERAL; ??08/28/2025 4:47 pm ?? INDICATION: Signs/Symptoms:JAMESON - please perform at bedside - do not take patient out of unit. ?? ,I65.23 Occlusion and stenosis of bilateral carotid arteries ?? COMPARISON: None. ?? ACCESSION NUMBER(S): [id number] ?? ORDERING CLINICIAN: SANTA PAREDES ?? TECHNIQUE: Vascular ultrasound of the extracranial carotid system was performed bilaterally. ??Topete scale, color Doppler and spectral Doppler waveform analysis was performed. ?? FINDINGS: Very limited examination due to noise interference at the internal carotid level. ?? RIGHT: On the right ??there is less than 50% hard atheromatous plaque in the proximal, middle, and distal portions of the common carotid artery.. The peak systolic velocities are as follows: ?? RIGHT SIDE PEAK SYSTOLIC VELOCITY TABLE: CCA 79.3 cm/s . ICA: N/a ECA 105.6 cm/s . ?? The ratio of the peak systolic velocity of the right ICA/CCA is unable to be calculated. ?? RIGHT VERTEBRAL ARTERY: The right vertebral artery demonstrates proximal normal anterograde flow ?? LEFT: On the left ??there is less than 50% hard atheromatous plaque in the proximal, middle, and distal portions of the common carotid artery.. The peak systolic velocities are as follows: ?? LEFT SIDE PEAK SYSTOLIC VELOCITY TABLE: CCA 70.8 cm/s. ICA: N/a ECA 59.4 cm/s . ?? The ratio of the peak systolic velocity of the left ICA/CCA is unable to be calculated. ?? LEFT VERTEBRAL ARTERY: The left vertebral artery demonstrates proximal normal anterograde flow ?? Procedure Note Alex Moreno MD PhD - 08/29/2025 Interpreted By: Alex Moreno and Liu Scott STUDY: [facility] US CAROTID ARTERY DUPLEX BILATERAL; 08/28/2025 4:47 pm INDICATION: Signs/Symptoms:JAMESON - please perform at bedside - do not take patient out of unit. ,I65.23 Occlusion and stenosis of bilateral carotid arteries COMPARISON: None. ACCESSION NUMBER(S): [id number] ORDERING CLINICIAN: SANTA PAREDES TECHNIQUE: Vascular ultrasound of the extracranial carotid system was performed bilaterally. Topete scale, color Doppler and spectral Doppler waveform analysis was performed. FINDINGS: Very limited examination due to noise interference at the internal carotid level. RIGHT: On the right there is less than 50% hard atheromatous plaque in the proximal, middle, and distal portions of the common carotid artery.. The peak systolic velocities are as follows: RIGHT SIDE PEAK SYSTOLIC VELOCITY TABLE: CCA 79.3 cm/s . ICA: N/a ECA 105.6 cm/s . The ratio of the peak systolic velocity of the right ICA/CCA is unable to be calculated. RIGHT VERTEBRAL ARTERY: The right vertebral artery demonstrates proximal normal anterograde flow LEFT: On the left there is less than 50% hard atheromatous plaque in the proximal, middle, and distal portions of the common carotid artery.. The peak systolic velocities are as follows: LEFT SIDE PEAK SYSTOLIC VELOCITY TABLE: CCA 70.8 cm/s. ICA: N/a ECA 59.4 cm/s . The ratio of the peak systolic velocity of the left ICA/CCA is unable to be calculated. LEFT VERTEBRAL ARTERY: The left vertebral artery demonstrates proximal normal anterograde flow IMPRESSION: 1. Limited evaluation of internal carotid artery velocities due to noise interference. 2. Less than 50% atheromatous plaque within the bilateral common carotid arteries. The remainder of the imaged vasculature appears patent. I personally reviewed the images/study and I agree with the findings as stated by resident physician Wilfredo Moore MD. This study was interpreted at [facility], [place], [place]. The velocity criteria are extrapolated from diameter data as defined by the Society of Radiologists in Ultrasound Consensus Conference Radiology 2003; 229;340-346. MACRO: None Signed by: Alex Moreno 08/29/2025 5:25 PM Dictation workstation: [id number] Authorizing ProviderResult TypeResult StatusBishnu Thompson AIRWAY TRAFFIC CONTROLLER-PEDIATRICIAN/MEDICAL DOCTOR, DNPCV VASCULAR PROCEDURESFinal Result * ACTIVATED CLOTTING TIME LOW (08/28/2025 4:46 PM EDT)ComponentValueRef Range Test MethodAnalysis TimePerformed AtPathologist SignaturePOCT Activated Clotting Time Low [id number] - 199 sec08/28/2025 4:51 PM EDMARIA PARHAM HEALTH LABComment: Target ACT range will vary based on the patient population, clinical status, and surgical intervention occurring. Specimen (Source)Anatomical Location / LateralityCollection Method / Volume Collection TimeReceived TimeBloodVenous blood specimen / Fxasoee6008/28/2025 4:46 PM EDT1 4:51 PM EDT Narrative Authorizing ProviderResult TypeResult StatusSanta Paredes [facility] POINT OF CARE TEST DOCKED DEVICE UNSOLICITED RESULTSFinal ResultPerforming OrganizationAddress City/State/ZIP CodePhone Number [facility] [id number] [phone] * (ABNORMAL) POCT GLUCOSE (08/28/2025 4:14 PM EDT)ComponentValueRef RangeTest MethodAnalysis TimePerformed AtPathologist SignaturePOCT Rvmtbin427(H)74 - 99 mg/dL08/28/2025 4:15 PM EDMARIA PARHAM [facility]ALTH LABSpecimen (Source)Anatomical Location / LateralityCollection Method / VolumeCollection TimeReceived TimeBloodCapillary blood specimen / Bdrmfrk0408/28/2025 4:14 PM EDT1 4:15 PM EDT Narrative Authorizing ProviderResult TypeResult StatusSanta Paredes [facility] POINT OF CARE TEST DOCKED DEVICE UNSOLICITED RESULTSFinal ResultPerforming OrganizationAddress [facility]/State/ZIP CodePhone Number [facility] [address] [phone] * (ABNORMAL) POCT GLUCOSE (08/28/2025 11:24 AM EDT)ComponentValueRef RangeTest MethodAnalysis TimePerformed AtPathologist SignaturePOCT Nnzwtop214(H)74 - 99 mg/dL08/28/2025 11:26 AM EDTGUTHRIE TROY COMM[facility] LABSpecimen (Source)Anatomical Location / LateralityCollection Method / VolumeCollection TimeReceived TimeBloodCapillary blood specimen / Djoyssr7308/28/2025 11:24 AM EDT1 11:26 AM EDT Narrative Authorizing ProviderResult TypeResult StatusJustsahara [place] POINT OF CARE TEST DOCKED DEVICE UNSOLICITED RESULTSFinal ResultPerforming OrganizationAddress City/State/ZIP CodePhone Number [facility] [address] [phone] * TRANSTHORACIC ECHO (TTE) COMPLETE WITH CONTRAST (08/28/2025 9:26 AM EDT) ComponentValueRef RangeTest MethodAnalysis TimePerformed AtPathologist SignatureAV pk vel2.09m/sSYNGOAV mn dvzp9byGcQTTKNRUIS diam1.80cmSYNGOMV E/A ratio0.94SYNGOLA vol index A/L31.5ml/z9RQORUEN EF58%SYNGOLVIDd4.54cmSYNGO Aortic Valve Area by Continuity of VTI1.52to0NZUXRCatbdo Valve Area by Continuity of Peak Velocity1.69mi8VMDVWTO pk zide21udMsODOWJYQ A4C EF57.7SYNGO Specimen (Source)Anatomical Location / LateralityCollection Method / Volume Collection TimeReceived Time08/28/2025 8:22 AM EDT Impressions SYNGO - 08/28/2025 11:03 AM EDT CONCLUSIONS: 1. Left ventricular ejection fraction is normal by visual estimate at 55-60%. 2. There are multiple left ventricular wall motion abnormalities. 3. Entire inferior septum is abnormal. 4. On the contrast enhanced apical 4 and 3 chamber views (clips 99 and 113, respectively), there isthe suggestion of an apical filling defect compatible with LV thrombus. 5. There is normal right ventricular global systolic function. 6. Left ventricular cavity size is decreased. 7. There is left ventricular concentric remodeling. 8. The left atrium is enlarged. 9. There is moderate aortic valve cusp calcification. 10. Aortic valve area by VTI is 1.81 cm2 with peak and mean gradients of 17 mmHg and 8 mmHg, respectively. SVi is notably low at 17 mL/m2 which may explain the low velocities. DI of 0.71 is supportive of mild . The calcification and thickening is present mainly at the NCC, also compromising the ventricular side of the cusp, at the posterior LVOT. 11. There is severe mitral annular calcification. 12. There is circumferential MAC, with hypoechogenic center, sugesting caseous degeneration and with possible partial rupture to the LV (clip #4). The differential diagnosis includes a calcified amorphous tumor or thrombus. MV mean gradient is 3 mmHg with peak gradient of 6 mmHg at 72 bpm, suggesting mild stenosis. 13. Small pericardial effusion. 14. Compared with study dated 08/26/2025, the current study is comprehensive. The prior echo was a limited fellow study. Narrative SYNGO - 08/28/2025 11:03 AM EDT [facility], [address] [place] [address] ? and TRANSTHORACIC ECHOCARDIOGRAM REPORT Patient Name: ? MADISON THOMPSON ? Reading Physician: ?[id number] Gilmar ?Yonas FRANKS Study Date: ? 08/28/2025 ?Ordering Provider: ?[id number] SANTA Cantor ?LENA MRN/PID: ?[id number] ?Fellow: ? [id number] Tasveer ?KhawajaMD Accession#: ? [id number] ?Nurse: Date of /Age: ??1970 / 54 ? Travel Journalist: ?Elvie Chiu ?years ? RCS Gender assigned at ??F ? Additional Staff: : Height: ? 165.10 cm ? Admit Date: ? 08/26/2025 Weight: ? 126.10 kg ? Admission Status: ? Inpatient - STAT BSA / BMI: ?2.28 m2 / 46.26 ?kg/m2 Blood Pressure: ? 104/61 mmHg ? [facility] Study Type: ?TRANSTHORACIC ECHO (TTE) COMPLETE Diagnosis/ICD: Atherosclerotic heart disease of [place] coronary artery without ? angina pectoris-I25.10 Indication: ?C/F ADHF CPT Code: ?Echo Complete w Full Doppler-[id number] Patient History: Pertinent History: CAD (moderate RCA disease 2009), ?LV thrombus noted on TTE ? 2023 (was discharged on DOAC, but no fabiano history), T2DM (last ? A1c 10.2%) on insulin c/b neuropathy, R cerebellar stroke ? 2023, Carotid artery stenosis, CKD3b, atrophic kidney s/p ? nephrectomy 2021, HLD, HTN, Hypothyroidism, obesity. Study Detail: The following Echo studies were performed: M-Mode, Doppler and ?color flow. Optison used as a contrast agent for endocardial ?border definition. Total contrast used for this procedure was 3 mL ?via IV push. Critical Event Critical Event: Test was completed as per department protocol. Time Test was Completed: 9:05:00 AM Notified: Gilmar Branham. Attending notification time: 9:21:32 AM PHYSICIAN INTERPRETATION: Left Ventricle: Left ventricular ejection fraction is normal by visual estimate at 55-60%. There are multiple left ventricular wall motion abnormalities. The left ventricular cavity size is decreased. There is mildly increased septal and mildly increased posterior left ventricular wall thickness. There is left ventricular concentric remodeling. Left ventricular diastolic filling cannot be determined due to severe mitral annular calcification (MAC). On the contrast enhanced apical 4 and 3 chamber views (clips 99 and 113, respectively), there is the suggestion of an apical filling defect compatible with LV thrombus. LV Wall Scoring: The entire inferior septum is hypokinetic. All remaining scored segments are normal. Left Atrium: The left atrium is enlarged. Right Ventricle: The right ventricle is normal in size. There is normal right ventricular global systolic function. Right Atrium: The right atrium is normal in size. Aortic Valve: The aortic valve is probably trileaflet. The aortic valve area by VTI is 1.81 cm? with a peak velocity of 2.09 m/s. The peak and mean gradients are 17 mmHg and 8 mmHg, respectively with a dimensionless index of 0.71. There is moderate aortic valve cusp calcification. There is moderate aortic valve thickening. There is reduced aortic valve non coronary cusp excursion. There is evidence of mild aortic valve stenosis. There is trace aortic valve regurgitation. Aortic valve area byVTI is 1.81 cm2 with peak and mean gradients of 17 mmHg and 8 mmHg, respectively. SVi is notably low at 17 mL/m2 which may explain the low velocities. DI of 0.71 is supportive of mild . The calcific ation and thickening is present mainly at the NCC, also compromising the ventricular side of the cusp, at the posterior LVOT. Mitral Valve: The mitral valve is mild to moderately thickened. The doppler estimated peak and meandiastolic pressure gradients are 6.0 mmHg and 3 mmHg, respectively. There is evidence of mild mitral valve stenosis. There is severe mitral annular calcification. The mean gradient of the mitral valve is 3 mmHg. There is trace mitral valve regurgitation. The E Vmax is 1.22 m/s. There is circumferential MAC, with hypoechogenic center, sugesting caseous degeneration and with possible partial rupture to the LV (clip #4). The differential diagnosis includes a calcified amorphous tumor or thrombus. MV mean gradient is 3 mmHg with peak gradient of 6 mmHg at 72 bpm, suggesting mild stenosis. Tricuspid Valve: The tricuspid valve is structurally normal. There is trace tricuspid regurgitation. Pulmonic Valve: The pulmonic valve is not well visualized. There is trace pulmonic valve regurgitation. Pericardium: Small pericardial effusion. There is a pericardial fat pad present. Aorta: The aortic root is normal. Systemic Veins: The inferior vena cava appears normal in size, with IVC inspiratory collapse greater than 50%. In comparison to the previous echocardiogram(s): Compared with study dated 08/26/2025, the current study is comprehensive. The prior echo was a limited fellow study. CONCLUSIONS: 1. Left ventricular ejection fraction is normal by visual estimate at 55-60%. 2. There are multiple left ventricular wall motion abnormalities. 3. Entire inferior septum is abnormal. 4. On the contrast enhanced apical 4 and 3 chamber views (clips 99 and 113, respectively), there isthe suggestion of an apical filling defect compatible with LV thrombus. 5. There is normal right ventricular global systolic function. 6. Left ventricular cavity size is decreased. 7. There is left ventricular concentric remodeling. 8. The left atrium is enlarged. 9. There is moderate aortic valve cusp calcification. 10. Aortic valve area by VTI is 1.81 cm2 with peak and mean gradients of 17 mmHg and 8 mmHg, respectively. SVi is notably low at 17 mL/m2 which may explain the low velocities. DI of 0.71 is supportive of mild . The calcification and thickening is present mainly at the NCC, also compromising the ventricular side of the cusp, at the posterior LVOT. 11. There is severe mitral annular calcification. 12. There is circumferential MAC, with hypoechogenic center, sugesting caseous degeneration and with possible partial rupture to the LV (clip #4). The differential diagnosis includes a calcified amorphous tumor or thrombus. MV mean gradient is 3 mmHg with peak gradient of 6 mmHg at 72 bpm, suggesting mild stenosis. 13. Small pericardial effusion. 14. Compared with study dated 08/26/2025, the current study is comprehensive. The prior echo was a limited fellow study. RECOMMENDATIONS: Based on the results of this study, it is recommended that the patient is considered for a transesophageal echocardiogram. QUANTITATIVE DATA SUMMARY: 2D MEASUREMENTS: ?Normal Ranges: Ao Root d: ? 3.17 cm ??(2.0-3.7cm) IVSd: ?1.09 cm ??(0.6-1.1cm) LVPWd: ? 1.00 cm ??(0.6-1.1cm) LVIDd: ? 4.54 cm ??(3.9-5.9cm) LVIDs: ? 2.99 cm LV Mass Index: ?? 72 g/m2 LVEDV Index: ? 29 ml/m2 LV % FS ?34.0 % LEFT ATRIUM: ?Normal Ranges: LA Vol A4C: ?60.4 ml ?(22+/-6mL/m2) LA Vol A2C: ?77.6 ml LA Vol BP: ? 71.6 ml LA Vol Index A4C: ??26.5ml/m2 LA Vol Index A2C: ??34.1 ml/m2 LA Vol Index BP: ?? 31.5 ml/m2 LA Area A4C: ? 20.3 cm2 LA Area A2C: ? 22.0 cm2 LA Major [place] A4C: 5.8 cm LA Major [place] A2C: 5.3 cm RIGHT ATRIUM: ? Normal Ranges: RA Vol A4C: ?44.7 ml ?(8.3-19.5ml) RA Vol Index A4C: ??19.6 ml/m2 RA Area A4C: ? 17.0 cm2 RA Major [place] A4C: 5.5 cm LV SYSTOLIC FUNCTION: ? Normal Ranges: EF-A4C View: 58 % (>=55%) EF-A2C View: ?57 % EF-Biplane: ? 58 % EF-Visual: ?58 % LV EF Reported: 58 % LV DIASTOLIC FUNCTION: ? Normal Ranges: MV Peak E: ? 1.22 m/s ??(0.7-1.2 m/s) MV Peak A: ? 1.30 m/s ??(0.42-0.7 m/s) E/A Ratio: ? 0.94 ?(1.0-2.2) MV e' 0.042 m/s (>8.0) MV lateral e' ?0.04 m/s MV medial e' ? 0.05 m/s E/e' Ratio: 28.82 (<8.0) MV DT: ? 212 msec ??(150-240 msec) MITRAL VALVE: ?Normal Ranges: MV Vmax: 1.22 m/s (<=1.3m/s) MV peak P.0 mmHg (<5mmHg) MV mean P.8 mmHg (<2mmHg) MV VTI: ? 42.10 cm (10-13cm) MV DT: ?212 msec (150-240msec) AORTIC VALVE: ?Normal Ranges: AoV Vmax: 2.09 m/s (<=1.7m/s) AoV Peak P.5 mmHg (<20mmHg) AoV Mean PG: ? 8.3 mmHg ??(1.7-11.5mmHg) LVOT Max [place]: 1.07 m/s (<=1.1m/s) AoV VTI: ? 34.40 cm ??(18-25cm) LVOT VTI: ?24.45 cm LVOT Diameter: ? 1.80 cm ?? (1.8-2.4cm) AoV Area, VTI: ? 1.81 cm2 ??(2.5-5.5cm2) AoV Area,Vmax: ? 1.30 cm2 ??(2.5-4.5cm2) AoV Dimensionless Index: 0.71 RIGHT VENTRICLE: RV Basal 3.20 cm RV Mid ?? 2.70 cm RV Major 8.3 cm TRICUSPID VALVE/RVSP: ? Normal Ranges: Est. RA Pressure: ? 3 IVC Diam: ? 1.99 cm PULMONIC VALVE: ?Normal Ranges: PV Accel Time: 83 msec (>120ms) PV Max [place]: ? 1.0 m/s ??(0.6-0.9m/s) PV Max PG: ?3.7 mmHg [id number] Gilmar Branham MD Electronically signed on 08/28/2025 at 11:03:44 AM Wall Scoring Final Procedure Note Gilmar Branham MD - 08/28/2025 [facility], [address] [place] [address] and TRANSTHORACIC ECHOCARDIOGRAM REPORT Patient Name: MADISON THOMPSON Reading Physician: [id number] Tinsley Study Date: 08/28/2025 Ordering Provider: Kenny PAREDES MRN/PID: [id number] Fellow: [id number] Ayala MD Nurse: Date of /Age: 11 1970 Travel Journalist: Maria Fernanda CHENG Gender assigned at F Additional Staff: : Height: 165.10 cm Admit Date: 08/26/2025 Weight: 126.10 kg Admission Status: Inpatient -STAT BSA / BMI: 2.28 m2 / 46.26 kg/m2 Blood Pressure: 104/61 mmHg Department Location: [facility] Study Type: TRANSTHORACIC ECHO (TTE) COMPLETE Diagnosis/ICD: Atherosclerotic heart disease of [place] coronary arterywithout angina pectoris-I25.10 Indication: C/F ADHF CPT Code: Echo Complete w Full Doppler-[id number] Patient History: Pertinent History: CAD (moderate RCA disease 2009), ?LV thrombus noted onTTE 2023 (was discharged on DOAC, but no fabiano history), T2DM(last A1c 10.2%) on insulin c/b neuropathy, R cerebellarstroke 2023, Carotid artery stenosis, CKD3b, atrophic kidneys/p nephrectomy 2021, HLD, HTN, Hypothyroidism, obesity. Study Detail: The following Echo studies were performed: M-Mode, Dopplerand color flow. Optison used as a contrast agent forendocardial border definition. Total contrast used for this procedurewas 3 mL via IV push. Critical Event Critical Event: Test was completed as per department protocol. Time Test was Completed: 9:05:00 AM Notified: Gilmar Branham. Attending notification time: 9:21:32 AM PHYSICIAN INTERPRETATION: Left Ventricle: Left ventricular ejection fraction is normal by visualestimate at 55-60%. There are multiple left ventricular wall motionabnormalities. The left ventricular cavity size is decreased. There ismildly increased septal and mildly increased posterior left ventricularwall thickness. There is left ventricular concentric remodeling. Leftventricular diastolic filling cannot be determined due to severe mitralannular calcification (MAC). On the contrast enhanced apical 4 and 3chamber views (clips 99 and 113, respectively), there is the suggestion ofan apical filling defect compatible with LV thrombus. LV Wall Scoring: The entire inferior septum is hypokinetic. All remaining scored segmentsare normal. Left Atrium: The left atrium is enlarged. Right Ventricle: The right ventricle is normal in size. There is normalright ventricular global systolic function. Right Atrium: The right atrium is normal in size. Aortic Valve: The aortic valve is probably trileaflet. The aortic valvearea by VTI is 1.81 cm? with a peak velocity of 2.09 m/s. The peak andmean gradients are 17 mmHg and 8 mmHg, respectively with a dimensionlessindex of 0.71. There is moderate aortic valve cusp calcification. There ismoderate aortic valve thickening. There is reduced aortic valve noncoronary cusp excursion. There is evidence of mild aortic valve stenosis.There is trace aortic valve regurgitation. Aortic valve area by VTI is1.81 cm2 with peak and mean gradients of 17 mmHg and 8 mmHg, respectively.SVi is notably low at 17 mL/m2 which may explain the low velocities. DI of0.71 is supportive of mild . The calcification and thickening is presentmainly at the NCC, also compromising the ventricular side of the cusp, atthe posterior LVOT. Mitral Valve: The mitral valve is mild to moderately thickened. Thedoppler estimated peak and mean diastolic pressure gradients are 6.0 mmHgand 3 mmHg, respectively. There is evidence of mild mitral valve stenosis.There is severe mitral annular calcification. The mean gradient of themitral valve is 3 mmHg. There is trace mitral valve regurgitation. The EVmax is 1.22 m/s. There is circumferential MAC, with hypoechogenic center,sugesting caseous degeneration and with possible partial rupture to the LV(clip #4). The differential diagnosis includes a calcified amorphous tumoror thrombus. MV mean gradient is 3 mmHg with peak gradient of 6 mmHg at 72bpm, suggesting mild stenosis. Tricuspid Valve: The tricuspid valve is structurally normal. There istrace tricuspid regurgitation. Pulmonic Valve: The pulmonic valve is not well visualized. There is trace pulmonic valve regurgitation. Pericardium: Small pericardial effusion. There is a pericardial fat padpresent. Aorta: The aortic root is normal. Systemic Veins: The inferior vena cava appears normal in size, with IVC inspiratory collapse greater than 50%. In comparison to the previous echocardiogram(s): Compared with study dated 08/26/2025, the current study is comprehensive. The prior echo was alimited fellow study. CONCLUSIONS: 1. Left ventricular ejection fraction is normal by visual estimate at55-60%. 2. There are multiple left ventricular wall motion abnormalities. 3. Entire inferior septum is abnormal. 4. On the contrast enhanced apical 4 and 3 chamber views (clips 99 peq269, respectively), there is the suggestion of an apical filling defectcompatible with LV thrombus. 5. There is normal right ventricular global systolic function. 6. Left ventricular cavity size is decreased. 7. There is left ventricular concentric remodeling. 8. The left atrium is enlarged. 9. There is moderate aortic valve cusp calcification. 10. Aortic valve area by VTI is 1.81 cm2 with peak and mean gradients of17 mmHg and 8 mmHg, respectively. SVi is notably low at 17 mL/m2 which mayexplain the low velocities. DI of 0.71 is supportive of mild . Thecalcification and thickening is present mainly at the NCC, alsocompromising the ventricular side of the cusp, at the posterior LVOT. 11. There is severe mitral annular calcification. 12. There is circumferential MAC, with hypoechogenic center, sugestingcaseous degeneration and with possible partial rupture to the LV (clip#4). The differential diagnosis includes a calcified amorphous tumor orthrombus. MV mean gradient is 3 mmHg with peak gradient of 6 mmHg at 72bpm, suggesting mild stenosis. 13. Small pericardial effusion. 14. Compared with study dated 08/26/2025, the current study iscomprehensive. The prior echo was a limited fellow study. RECOMMENDATIONS: Based on the results of this study, it is recommended that the patient is considered for a transesophageal echocardiogram. QUANTITATIVE DATA SUMMARY: 2D MEASUREMENTS: Normal Ranges: Ao Root d: 3.17 cm (2.0-3.7cm) IVSd: 1.09 cm (0.6-1.1cm) LVPWd: 1.00 cm (0.6-1.1cm) LVIDd: 4.54 cm (3.9-5.9cm) LVIDs: 2.99 cm LV Mass Index: 72 g/m2 LVEDV Index: 29 ml/m2 LV % FS 34.0 % LEFT ATRIUM: Normal Ranges: LA Vol A4C: 60.4 ml (22+/-6mL/m2) LA Vol A2C: 77.6 ml LA Vol BP: 71.6 ml LA Vol Index A4C: 26.5ml/m2 LA Vol Index A2C: 34.1 ml/m2 LA Vol Index BP: 31.5 ml/m2 LA Area A4C: 20.3 cm2 LA Area A2C: 22.0 cm2 LA Major [place] A4C: 5.8 cm LA Major [place] A2C: 5.3 cm RIGHT ATRIUM: Normal Ranges: RA Vol A4C: 44.7 ml (8.3-19.5ml) RA Vol Index A4C: 19.6 ml/m2 RA Area A4C: 17.0 cm2 RA Major [place] A4C: 5.5 cm LV SYSTOLIC FUNCTION: Normal Ranges: EF-A4C View: 58 % (>=55%) EF-A2C View: 57 % EF-Biplane: 58 % EF-Visual: 58 % LV EF Reported: 58 % LV DIASTOLIC FUNCTION: Normal Ranges: MV Peak E: 1.22 m/s (0.7-1.2 m/s) MV Peak A: 1.30 m/s (0.42-0.7 m/s) E/A Ratio: 0.94 (1.0-2.2) MV e' 0.042 m/s (>8.0) MV lateral e' 0.04 m/s MV medial e' 0.05 m/s E/e' Ratio: 28.82 (<8.0) MV DT: 212 msec (150-240 msec) MITRAL VALVE: Normal Ranges: MV Vmax: 1.22 m/s (<=1.3m/s) MV peak P.0 mmHg (<5mmHg) MV mean P.8 mmHg (<2mmHg) MV VTI: 42.10 cm (10-13cm) MV DT: 212 msec (150-240msec) AORTIC VALVE: Normal Ranges: AoV Vmax: 2.09 m/s (<=1.7m/s) AoV Peak P.5 mmHg (<20mmHg) AoV Mean P.3 mmHg (1.7-11.5mmHg) LVOT Max [place]: 1.07 m/s (<=1.1m/s) AoV VTI: 34.40 cm (18-25cm) LVOT VTI: 24.45 cm LVOT Diameter: 1.80 cm (1.8-2.4cm) AoV Area, VTI: 1.81 cm2 (2.5-5.5cm2) AoV Area,Vmax: 1.30 cm2 (2.5-4.5cm2) AoV Dimensionless Index: 0.71 RIGHT VENTRICLE: RV Basal 3.20 cm RV Mid 2.70 cm RV Major 8.3 cm TRICUSPID VALVE/RVSP: Normal Ranges: Est. RA Pressure: 3 IVC Diam: 1.99 cm PULMONIC VALVE: Normal Ranges: PV Accel Time: 83 msec (>120ms) PV Max Milton: 1.0 m/s (0.6-0.9m/s) PV Max P.7 mmHg [id number] Gilmar Branham MD Electronically signed on 08/28/2025 at 11:03:44 AM Wall Scoring Final IMPRESSION: CONCLUSIONS: 1. Left ventricular ejection fraction is normal by visual estimate at55-60%. 2. There are multiple left ventricular wall motion abnormalities. 3. Entire inferior septum is abnormal. 4. On the contrast enhanced apical 4 and 3 chamber views (clips 99 sqs998, respectively), there is the suggestion of an apical filling defectcompatible with LV thrombus. 5. There is normal right ventricular global systolic function. 6. Left ventricular cavity size is decreased. 7. There is left ventricular concentric remodeling. 8. The left atrium is enlarged. 9. There is moderate aortic valve cusp calcification. 10. Aortic valve area by VTI is 1.81 cm2 with peak and mean gradients of17 mmHg and 8 mmHg, respectively. SVi is notably low at 17 mL/m2 which mayexplain the low velocities. DI of 0.71 is supportive of mild . Thecalcification and thickening is present mainly at the NCC, alsocompromising the ventricular side of the cusp, at the posterior LVOT. 11. There is severe mitral annular calcification. 12. There is circumferential MAC, with hypoechogenic center, sugestingcaseous degeneration and with possible partial rupture to the LV (clip#4). The differential diagnosis includes a calcified amorphous tumor orthrombus. MV mean gradient is 3 mmHg with peak gradient of 6 mmHg at 72bpm, suggesting mild stenosis. 13. Small pericardial effusion. 14. Compared with study dated 08/26/2025, the current study iscomprehensive. The prior echo was a limited fellow study. Authorizing ProviderResult TypeResult StatusSanta Paredes [facility] [place]CHO PROCEDURES Final ResultPerforming OrganizationAddressCity/State/ZIP CodePhone Number [place] * (ABNORMAL) POCT GLUCOSE (08/28/2025 7:28 AM EDT)ComponentValueRef RangeTest MethodAnalysis TimePerformed AtPathologist SignaturePOCT Kjfuvgp597(H)74 - 99 mg/dL08/28/2025 7:30 AM EDTGUTHRIE TROY [facility] LABSpecimen (Source)Anatomical Location / LateralityCollection Method / VolumeCollection TimeReceived TimeBloodCapillary blood specimen / Kgihacg3708/28/2025 7:28 AM EDT1 7:30 AM EDT Narrative Authorizing ProviderResult TypeResult Aris Paredes MDLAB POINT OF CARE TEST DOCKED DEVICE UNSOLICITED RESULTSFinal ResultPerforming OrganizationAddress City/State/ZIP CodePhone Number [facility] [id number] [place] [address] * XR chest 1 view (08/28/2025 7:01 AM EDT) Only the most recent of2 resultswithin the time period is included. Anatomical RegionLateralityModalityThoracic, ChestComputed RadiographySpecimen (Source)Anatomical Location / LateralityCollection Method / VolumeCollection TimeReceived Time08/28/2025 7:06 AM EDT1 7:35 AM EDT Impressions 08/28/2025 7:34 AM EDT 1. No acute cardiopulmonary pathology ?? I personally reviewed the images/study and I agree with the findings as stated by Roger Gerber DO PGY-3. This study was interpreted at [place], [place]. ?? MACRO: None ?? Signed by: Colin Rm 08/28/2025 7:34 AM Dictation workstation: ?? [id number] Narrative 08/28/2025 7:34 AM EDT Interpreted By: Colin Rm and Stevens Alex STUDY: XR CHEST 1 VIEW; ??08/28/2025 7:01 am ?? INDICATION: Signs/Symptoms:Confirm aortic balloon pump placement. ? COMPARISON: XR chest 08/26/2025 ?? ACCESSION NUMBER(S): [id number] ?? ORDERING CLINICIAN: SANTA PAREDES ?? FINDINGS: AP radiograph of the chest was provided. ?? Limitations: Decreased lung volumes. Apical lordotic projection. ?? Medical devices: The IABP fiduciary marker is distal to the aortic arch similar in position to previous study. ?? The heart is magnified. ?? No new pulmonary infiltrates, consolidations or significant effusions are noted. The pulmonary vascular distribution is improved in comparison to 08/26/2025. ?? Procedure Note Colin Rm DO - 08/28/2025 Interpreted By: Colin Rm and Stevens Alex STUDY: XR CHEST 1 VIEW; 08/28/2025 7:01 am INDICATION: Signs/Symptoms:Confirm aortic balloon pump placement. COMPARISON: XR chest 08/26/2025 ACCESSION NUMBER(S): [id number] ORDERING CLINICIAN: SANTA PAREDES FINDINGS: AP radiograph of the chest was provided. Limitations: Decreased lung volumes. Apical lordotic projection. Medical devices: The IABP fiduciary marker is distal to the aortic arch similar in position to previous study. The heart is magnified. No new pulmonary infiltrates, consolidations or significant effusions are noted. The pulmonary vascular distribution is improved in comparison to 08/26/2025. IMPRESSION: 1. No acute cardiopulmonary pathology I personally reviewed the images/study and I agree with the findings as stated by Roger Gerber DO PGY-3. This study was interpreted at [facility], [place], [place]. MACRO: None Signed by: Colin Rm 08/28/2025 7:34 AM Dictation workstation: [id number] Authorizing ProviderResult TypeResult Aris Paredes MDIMG XR PROCEDURES Final Result * (ABNORMAL) POCT GLUCOSE (08/28/2025 4:00 AM EDT)ComponentValueRef RangeTest MethodAnalysis TimePerformed AtPathologist SignaturePOCT Gshemws667(H)74 - 99 mg/dL08/28/2025 4:02 AM EDMARIA [facility] LABSpecimen (Source)Anatomical Location / LateralityCollection Method / VolumeCollection TimeReceived TimeBloodCapillary blood specimen / Vfbwpep1908/28/2025 4:00 AM EDT1 4:02 AM EDT Narrative Authorizing ProviderResult TypeResult Aris [place] POINT OF CARE TEST DOCKED DEVICE UNSOLICITED RESULTSFinal ResultPerforming OrganizationAddress City/[facility]/ZIP CodePhone Number [facility] [address] [address] * (ABNORMAL) POCT GLUCOSE (08/28/2025 1:22 AM EDT)ComponentValueRef RangeTest MethodAnalysis TimePerformed AtPathologist SignaturePOCT Doopggf883(H)74 - 99 mg/dL08/28/2025 1:25 AM EDMARIA PARH[facility] LABSpecimen (Source)Anatomical Location / LateralityCollection Method / VolumeCollection TimeReceived TimeBloodCapillary blood specimen / Katstak6108/28/2025 1:22 AM EDT1 1:25 AM EDT Narrative Authorizing ProviderResult TypeResult Aris Paredes MDLAB POINT OF CARE TEST DOCKED DEVICE UNSOLICITED RESULTSFinal ResultPerforming OrganizationAddress City/[facility]/ZIP CodePhone Number [facility] [address] [address] * (ABNORMAL) POCT GLUCOSE (08/27/2025 7:43 PM EDT)ComponentValueRef RangeTest MethodAnalysis TimePerformed AtPathologist SignaturePOCT Vzclutt323(H)74 - 99 mg/dL08/27/2025 7:44 PM EDMARIA PARH[facility] LABSpecimen (Source)Anatomical Location / LateralityCollection Method / VolumeCollection TimeReceived TimeBloodCapillary blood specimen / Wpchfey6508/27/2025 7:43 PM EDT1 7:44 PM EDT Narrative Authorizing ProviderResult TypeResult StatusJustsahara [place] POINT OF CARE TEST DOCKED DEVICE UNSOLICITED RESULTSFinal ResultPerforming OrganizationAddress City/State/ZIP CodePhone Number [facility] [address] [facility] [address] [place] [phone] * (ABNORMAL) Blood Gas Venous Full Panel (08/27/2025 5:11 PM EDT) Only the most recent of7 resultswithin the time period is included. ComponentValueRef RangeTest MethodAnalysis TimePerformed AtPathologist Signature POCT pH, Venous7.347.33 - 7.43 pH08/27/2025 5:20 PM EDMARIA PARHAM [facility]ALTH LABPOCT pCO2, Cfuvbv74(L)41 - 51 mm Hg08/27/2025 5:20 PM EDMARIA PARH[facility] LABPOCT pO2, Nphems22(H)35 - 45 mm Hg08/27/2025 5:20 PM [facility] LABPOCT SO2, Ohpjrf5727 - 75 %08/27/2025 5:20 PM [facility] LABPOCT Oxy Hemoglobin, Wasscu79.045.0 - 75.0 %08/27/2025 5:20 PM [facility] LABPOCT Hematocrit Calculated, Migtuj67.0(L)36.0 - 46.0 %08/27/2025 5:20 PM EDMARIA [facility] LABPOCT Sodium, Mliuxo691(L)136 - 145 mmol/L1 5:20 PM EDMARIA PARH[facility] LABPOCT Potassium, Venous5.6(H)3.5 - 5.3 mmol/L1 5:20 PM EDT [facility] LABPOCT Chloride, Rduvoy08633 - 107 mmol/L1 5:20 PM [facility] POCT Ionized Calicum, Venous1.221.10 - 1.33 mmol/L1 5:20 PM EDMARIA PARH[facility] LABPOCT Glucose, Ybuvfa761(H)74 - 99 mg/dL08/27/2025 5:20 PM EDTGUTHRIE [facility] LABPOCT Lactate, Venous1.80.4 - 2.0 mmol/L1 5:20 PM EDTGUTHRIE [facility] LABPOCT Base Excess, Venous-3.9(L)-2.0 - 3.0 mmol/L1 5:20 PM EDTGUTH[facility] LABPOCT HCO3 Calculated, Kibjni31.6(L)22.0 - 26.0 mmol/L1 5:20 PM EDTGUTHRI[facility] LABPOCT Hemoglobin, Xnodcx10.8(L)12.0 - 16.0 g/dL08/27/2025 5:20 PM EDTGUTHRIE [facility] LABPOCT Anion Gap, Ndseiq55.010.0 - 25.0 mmol/L1 5:20 PM [facility] LABPatient Rxgfauykxle56.0degrees Eagziyf3308/27/2025 5:20 PM EDMARIA PARH[facility] JPTQbM067%08/27/2025 5:20 PM [facility] LABSpecimen (Source)Anatomical Location / LateralityCollection Method / VolumeCollection TimeReceived TimeBloodVenous blood specimen / Unknown Arterial Line / Xnepjgd7108/27/2025 5:11 PM EDT1 5:11 PM EDT Narrative Authorizing ProviderResult TypeResult StatusMicjordan Thompson AIRWAY TRAFFIC CONTROLLER-PEDIATRICIAN/MEDICAL DOCTOR, DNPLAB BLOOD ORDERABLESFinal ResultPerforming OrganizationAddressCity/State/ZIP Code Phone Number [facility] [address] [place] [address] * (ABNORMAL) Blood Gas Venous Unsolicited (08/27/2025 4:57 PM EDT)ComponentValue Ref RangeTest MethodAnalysis TimePerformed AtPathologist SignaturePOCT pH, Venous7.347.33 - 7.43 pH08/28/2025 5:51 AM EDTGUTHRIE TROY [facility] LABPOCT pCO2, Xgonvx7179 - 51 mm Hg08/28/2025 5:51 AM EDTGUTHRIE [facility] LABPOCT pO2, Ugfjdd21(H)35 - 45 mm Hg 08/28/2025 5:51 AM EDMARIA PAR[facility] LABPOCT SO2, Ktpmfv5971 - 75 %08/28/2025 5:51 AM EDMAR[facility] LABPOCT Oxy Hemoglobin, Vlmxad54.845.0 - 75.0 %08/28/2025 5:51 AM EDT [facility] LABPOCT Base Excess, Venous-3.0(L)-2.0 - 3.0 mmol/L1 5:51 AM EDMARIA PARHAM [facility] LABPOCT HCO3 Calculated, Nnahwo85.722.0 - 26.0 mmol/L1 5:51 AM EDMARIA PARHAM [facility] LABPatient Yykpklyotxk71.0degrees Eprlfzm7108/28/2025 5:51 AM EDT [facility] LABComment:NOTE: Patient Results are Not Corrected for Temperature Specimen (Source)Anatomical Location / LateralityCollection Method / Volume Collection TimeReceived TimeBloodVenous blood specimen / Vobtpwc8608/27/2025 4:57 PM EDT1 5:51 AM EDT Narrative Authorizing ProviderResult TypeResult StatusSanta [place] BLOOD ORDERABLES Final ResultPerforming OrganizationAddressCity/State/ZIP CodePhone Number [facility] [address] [address] * (ABNORMAL) POCT GLUCOSE (08/27/2025 4:43 PM EDT)ComponentValueRef RangeTest MethodAnalysis TimePerformed AtPathologist SignaturePOCT Ahkhrtw564(H)74 - 99 mg/dL08/27/2025 4:45 PM EDTGUTHRIE TROY [facility] LABSpecimen (Source)Anatomical Location / LateralityCollection Method / VolumeCollection TimeReceived TimeBloodCapillary blood specimen / Jszxnxv7108/27/2025 4:43 PM EDT1 4:45 PM EDT Narrative Authorizing ProviderResult TypeResult StatusSanta [place] POINT OF CARE TEST DOCKED DEVICE UNSOLICITED RESULTSFinal ResultPerforming OrganizationAddress City/State/ZIP CodePhone Number [facility] [address] [address] * US [facility] with doppler (08/27/2025 3:56 PM EDT)Anatomical Region LateralityModalityAbdomen, KidneyUltrasoundSpecimen (Source)Anatomical Location / LateralityCollection Method / VolumeCollection TimeReceived Time 08/27/2025 6:41 PM EDT1 6:18 AM EDT Impressions 08/28/2025 6:16 AM EDT 1. Mildly elevated resistive indices suggestive of increased resistance to blood flow in the kidney. 2. No evidence of renal artery stenosis. 3. Aorta, IVC, renal vein normal flow velocities. 4. Increased renal cortical echogenicity which may be seen with medical renal disease. 5. Postsurgical changes from left nephrectomy. ? I personally reviewed the images/study and I agree with the findings as stated by Hannah Franklin DO, PGY-4. This study was interpreted at [facility], [place], [place]. ?? MACRO: None ?? Signed by: Goran Bowie 08/28/2025 6:16 AM Dictation workstation: ?? [id number] Narrative 08/28/2025 6:16 AM EDT Interpreted By: Goran Bowie, and Rigoberto Young STUDY: US [facility] RENAL WITH DOPPLER; ??08/27/2025 3:56 pm ?? INDICATION: Signs/Symptoms:OMAR. ,N17.9 Acute kidney failure, unspecified ?? Per EMR: Extensive cardiac history found to have NSTEMI now status post JOSELITO to RCA on 08/2021 complicated by distal RCA lesion dissection, stent embolization, and spiral dissection. Status post IABP. Being evaluated for CABG evaluation. ?? COMPARISON: None. ?? ACCESSION NUMBER(S): [id number] ?? ORDERING CLINICIAN: SANTA PAREDES ?? TECHNIQUE: Multiple images of the kidneys were obtained ??. ?? FINDINGS: RIGHT KIDNEY: The right kidney measures 13.5 cm in length. Increased renal cortical echogenicity. Cortical thickness is within normal limits. No hydronephrosis is present; no evidence of nephrolithiasis. ?? The RI values: 0.79 in the upper pole. 0.76 in the mid pole. 0.80 in the lower pole. ?? The renal artery velocities are 95.1 cm/sproximally,46.2 cm/s in the mid portion, and 58.8 cm/s distally. ?? The renal vein velocity is 30.2 cm/s. ?? LEFT KIDNEY: Status post left nephrectomy. ?? AORTA: The aortic velocity is 153.4 cm/s. ?? The right RAR is 0.6. ?? IVC: The IVC velocity is 41.1 cm/s. ?? BLADDER: The urinary bladder is unremarkable in appearance. ?? Right jet was noted. ?? Procedure Note Goran Bowie MD - 08/28/2025 Interpreted By: Goran Bowie, and Rigoberto Young STUDY: US [facility] RENAL WITH DOPPLER; 08/27/2025 3:56 pm INDICATION: Signs/Symptoms:OMAR. ,N17.9 Acute kidney failure, unspecified Per EMR: Extensive cardiac history found to have NSTEMI now status post JOSELITO to RCA on 08/2021 complicated by distal RCA lesion dissection, stent embolization, and spiral dissection. Status post IABP. Being evaluated for CABG evaluation. COMPARISON: None. ACCESSION NUMBER(S): [id number] ORDERING CLINICIAN: SANTA PAREDES TECHNIQUE: Multiple images of the kidneys were obtained . FINDINGS: RIGHT KIDNEY: The right kidney measures 13.5 cm in length. Increased renal cortical echogenicity. Cortical thickness is within normal limits. No hydronephrosis is present; no evidence of nephrolithiasis. The RI values: 0.79 in the upper pole. 0.76 in the mid pole. 0.80 in the lower pole. The renal artery velocities are 95.1 cm/sproximally,46.2 cm/s in the mid portion, and 58.8 cm/s distally. The renal vein velocity is 30.2 cm/s. LEFT KIDNEY: Status post left nephrectomy. AORTA: The aortic velocity is 153.4 cm/s. The right RAR is 0.6. IVC: The IVC velocity is 41.1 cm/s. BLADDER: The urinary bladder is unremarkable in appearance. Right jet was noted. IMPRESSION: 1. Mildly elevated resistive indices suggestive of increased resistance to blood flow in the kidney. 2. No evidence of renal artery stenosis. 3. Aorta, IVC, renal vein normal flow velocities. 4. Increased renal cortical echogenicity which may be seen with medical renal disease. 5. Postsurgical changes from left nephrectomy. I personally reviewed the images/study and I agree with the findings as stated by Hannah Franklin DO, PGY-4. This study was interpreted at [facility], [place], [place]. MACRO: None Signed by: Goran Bowie 08/28/2025 6:16 AM Dictation workstation: [id number] Authorizing ProviderResult TypeResult Aris Paredes MDIMJoshua US PROCEDURES Final Result * (ABNORMAL) POCT GLUCOSE (08/27/2025 12:16 PM EDT)ComponentValueRef RangeTest MethodAnalysis TimePerformed AtPathologist SignaturePOCT Hvqbobt649(H)74 - 99 mg/dL08/27/2025 12:18 PM EDTGUTHRIE TROY [facility] LABSpecimen (Source)Anatomical Location / LateralityCollection Method / VolumeCollection TimeReceived TimeBloodCapillary blood specimen / Xieaqme8108/27/2025 12:16 PM EDT1 12:18 PM EDT Narrative Authorizing ProviderResult TypeResult Aris Paredes [facility] POINT OF CARE TEST DOCKED DEVICE UNSOLICITED RESULTSFinal ResultPerforming OrganizationAddWorcester [facility]/ZIP CodePhone Number [facility] [id number] [place] [phone] * (ABNORMAL) POCT GLUCOSE (08/27/2025 8:33 AM EDT)ComponentValueRef RangeTest MethodAnalysis TimePerformed AtPathologist SignaturePOCT Uqppnyt880(H)74 - 99 mg/dL08/27/2025 8:36 AM EDMARIA PARHAM [facility]ALTH LABSpecimen (Source)Anatomical Location / LateralityCollection Method / VolumeCollection TimeReceived TimeBloodCapillary blood specimen / Fjnxhfd8008/27/2025 8:33 AM EDT1 8:36 AM EDT Narrative Authorizing ProviderClaudiault TypeResult Aris [place] POINT OF CARE TEST DOCKED DEVICE UNSOLICITED RESULTSFinal ResultPerforming OrganizationAddWorcester State Hospital/[facility]/ZIP CodePhone Number [facility] [id number] [place] [phone] * (ABNORMAL) POCT GLUCOSE (08/27/2025 3:24 AM EDT)ComponentValueRef RangeTest MethodAnalysis TimePerformed AtPathologist SignaturePOCT Tlpymyk753(H)74 - 99 mg/dL08/27/2025 8:15 AM EDMARIA PARH[facility] LABSpecimen (Source)Anatomical Location / LateralityCollection Method / VolumeCollection TimeReceived TimeBloodCapillary blood specimen / Lgbudnk1208/27/2025 3:24 AM EDT1 8:15 AM EDT Narrative Authorizing ProviderResult TypeResult StatusSanta Paredes MDLAB POINT OF CARE TEST DOCKED DEVICE UNSOLICITED RESULTSFinal ResultPerforming OrganizationAddress City/State/ZIP CodePhone Number [facility] [phone] [place], [place] [phone] * Iron and TIBC (08/27/2025 3:11 AM EDT)ComponentValueRef RangeTest Method Analysis TimePerformed AtPathologist ZrtcopyjiHgbj36526 - 150 ug/dL LAB CHEMISTRY METHOD 08/27/2025 4:59 AM EDMAR[facility] DIOCXYY620383 - 370 ug/dL LAB CHEMISTRY METHOD 08/27/2025 4:59 AM [facility] EIICQZR754089 - 445 ug/dL LAB CHEMISTRY METHOD 08/27/2025 4:59 AM [facility] LAB% Ruszapneth8781 - 45 % LAB CHEMISTRY METHOD 08/27/2025 4:59 AM [facility] LABSpecimen (Source)Anatomical Location / Laterality Collection Method / VolumeCollection TimeReceived TimeBloodVenous blood specimen / UnknownArterial Line / Sbxbpct1508/27/2025 3:11 AM EDT1 3:53 AM EDT Narrative Authorizing ProviderResult TypeResult StatusSanta Paredes MDLAB BLOOD ORDERABLES Final ResultPerforming OrganizationAddressCity/State/ZIP CodePhone Number [facility] [address] [address] * Folate (08/27/2025 3:11 AM EDT)ComponentValueRef RangeTest MethodAnalysis Time Performed AtPathologist SignatureFolate, Serum13.5>5.0 ng/mL LAB IMMUNOASSAY METHOD 08/27/2025 5:57 AM EDMAR[facility] LABSpecimen (Source)Anatomical Location / Laterality Collection Method / VolumeCollection TimeReceived TimeBloodVenous blood specimen / UnknownArterial Line / Cmtfgya9308/27/2025 3:11 AM EDT1 3:53 AM EDT Narrative [facility] - 08/27/2025 5:57 AM EDT Low <3.4 Borderline 3.4-5.0 Normal >5.0 Patients receiving more than 5 mg/day of biotin may have interference in test results. A sample should be taken no sooner than eight hours after previous dose. Contact the testing laboratory for additional information. Authorizing ProviderResult TypeResult StatusSanta Paredes [facility] BLOOD ORDERABLES Final ResultPerforming OrganizationAddressCity/State/ZIP CodePhone Number [facility] [address] [place] [phone] * Ferritin (08/27/2025 3:11 AM EDT)ComponentValueRef RangeTest MethodAnalysis TimePerformed AtPathologist EhvuchhwmPynfmxbp915 - 150 ng/mL LAB CHEMISTRY METHOD 08/27/2025 4:59 AM EDMAR[facility] LABSpecimen (Source)Anatomical Location / Laterality Collection Method / VolumeCollection TimeReceived TimeBloodVenous blood specimen / UnknownArterial Line / Tzopvsz6208/27/2025 3:11 AM EDT1 3:53 AM EDT Narrative Authorizing ProviderResult TypeResult StatusSanta Paredes [facility] BLOOD ORDERABLES Final ResultPerforming OrganizationAddressCity/State/ZIP CodePhone Number [facility] [phone] [place] [phone] * Vitamin B12 (08/27/2025 3:11 AM EDT)ComponentValueRef RangeTest MethodAnalysis TimePerformed AtPathologist SignatureVitamin [id number] - 911 pg/mL LAB IMMUNOASSAY METHOD 08/27/2025 5:57 AM [facility] LABSpecimen (Source)Anatomical Location / Laterality Collection Method / VolumeCollection TimeReceived TimeBloodVenous blood specimen / UnknownArterial Line / Xbcxpif8508/27/2025 3:11 AM EDT1 3:53 AM EDT Narrative Authorizing ProviderResult TypeResult StatusJuwill Paredes MDLAB BLOOD ORDERABLES Final ResultPerforming OrganizationAddressCity/State/ZIP CodePhone Number [facility] [id number] [place] [address] * TRANSTHORACIC ECHO (TTE) LIMITED WITH DOPPLER AND COLOR (08/26/2025 11:20 PM EDT)Specimen (Source)Anatomical Location / LateralityCollection Method / VolumeCollection TimeReceived Time08/26/2025 11:00 PM EDT Impressions SYNGO - 08/27/2025 1:52 PM EDT CONCLUSIONS: 1. The left ventricle was not well visualized. The left ventricular ejection fraction could not be measured. 2. There is moderate aortic valve cusp calcification. 3. There is moderate mitral annular calcification. Narrative SYNGO - 08/27/2025 1:52 PM EDT [facility], [address] [place] [address] ? and TRANSTHORACIC ECHOCARDIOGRAM REPORT Patient Name: ?MADISON THOMPSON ?Reading Physician: Raine Schafer ? Yonas FRANKS Study Date: ?08/26/2025 ? Ordering Provider: [id number] Cantor ? LENA MRN/PID: ? [id number] ? Fellow: Accession#: ?[id number] ? Nurse: Date of /Age: ?? 1970 / ?Travel Journalist: ? Fellow Exam ? years Gender assigned at ?? F ?Additional Staff: : BSA / BMI: ? m2 / kg/m2 ? 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 PHYSICIAN INTERPRETATION: Left Ventricle: The left ventricle was not well visualized. The left ventricular ejection fraction could not be measured. The left ventricular cavity size was not assessed. Left ventricular diastolicfilling was not assessed. Left Atrium: The left atrial size was not assessed. Right Ventricle: The right ventricle was not assessed. Right ventricular systolic function not assessed. Right Atrium: The right atrial size was not assessed. Aortic Valve: The aortic valve was not well visualized. There is moderate aortic valve cusp calcification. There is trace to mild aortic valve regurgitation. Mitral Valve: The mitral valve was not well visualized. There is moderate mitral annular calcification. There is trace mitral valve regurgitation. Tricuspid Valve: The tricuspid valve was not well visualized. Tricuspid regurgitation was not assessed. Pulmonic Valve: The pulmonic valve was not assessed. Pulmonic valve regurgitation was not assessed. Pericardium: Pericardial effusion was not assessed. Aorta: The aortic root was not assessed. Systemic Veins: The inferior vena cava was not well visualized, IVC inspiratory collapse is not well visualized. In comparison to the previous echocardiogram(s): There are no prior studies on this patient for comparison purposes. CONCLUSIONS: 1. The left ventricle was not well visualized. The left ventricular ejection fraction could not be measured. 2. There is moderate aortic valve cusp calcification. 3. There is moderate mitral annular calcification. QUANTITATIVE DATA SUMMARY: TRICUSPID VALVE/RVSP: ?? Normal Ranges: Est. RA Pressure: ? 3 [id number] Gilmar Branham MD Electronically signed on 08/27/2025 at 1:52:36 PM Final Procedure Note Gilmar Branham MD - 08/27/2025 [facility], [address] [place] [address] and TRANSTHORACIC ECHOCARDIOGRAM REPORT Patient Name: MADISON THOMPSON Reading Physician: [id number] Branham MD Study Date: 08/26/2025 Ordering Provider: [id number] BRITTANY PAREDES MRN/PID: [id number] Fellow: Nurse: Date of /Age: 11 1970 Travel Journalist: Fellow Exam years Gender assigned at F Additional Staff: : BSA / BMI: m2 / kg/m2 Study Type: TRANSTHORACIC ECHO (TTE) LIMITED Diagnosis/ICD: Atherosclerotic heart disease of [place] coronary arterywithout angina pectoris-I25.10 Indication: CAD CPT Code: Echo Limited-20795; Color Doppler-53734; DopplerLimited-79412 Study Detail: The following Echo studies were performed: 2D, color flowand Doppler. PHYSICIAN INTERPRETATION: Left Ventricle: The left ventricle was not well visualized. The leftventricular ejection fraction could not be measured. The left ventricularcavity size was not assessed. Left ventricular diastolic filling was notassessed. Left Atrium: The left atrial size was not assessed. Right Ventricle: The right ventricle was not assessed. Right ventricularsystolic function not assessed. Right Atrium: The right atrial size was not assessed. Aortic Valve: The aortic valve was not well visualized. There is moderateaortic valve cusp calcification. There is trace to mild aortic valveregurgitation. Mitral Valve: The mitral valve was not well visualized. There is moderatemitral annular calcification. There is trace mitral valve regurgitation. Tricuspid Valve: The tricuspid valve was not well visualized. Tricuspid regurgitation was not assessed. Pulmonic Valve: The pulmonic valve was not assessed. Pulmonic valveregurgitation was not assessed. Pericardium: Pericardial effusion was not assessed. Aorta: The aortic root was not assessed. Systemic Veins: The inferior vena cava was not well visualized, IVCinspiratory collapse is not well visualized. In comparison to the previous echocardiogram(s): There are no priorstudies on this patient for comparison purposes. CONCLUSIONS: 1. The left ventricle was not well visualized. The left ventricularejection fraction could not be measured. 2. There is moderate aortic valve cusp calcification. 3. There is moderate mitral annular calcification. QUANTITATIVE DATA SUMMARY: TRICUSPID VALVE/RVSP: Normal Ranges: Est. RA Pressure: 3 [id number] Gilmar Branham MD Electronically signed on 08/27/2025 at 1:52:36 PM Final IMPRESSION: CONCLUSIONS: 1. The left ventricle was not well visualized. The left ventricularejection fraction could not be measured. 2. There is moderate aortic valve cusp calcification. 3. There is moderate mitral annular calcification. Authorizing ProviderResult TypeResult Aris Paredes MDCV ECHO PROCEDURES Final ResultPerforming OrganizationAddressCity/State/ZIP CodePhone Number SYNGO * (ABNORMAL) POCT GLUCOSE (08/26/2025 10:33 PM EDT)ComponentValueRef RangeTest MethodAnalysis TimePerformed AtPathologist SignaturePOCT Utcffpf879(H)74 - 99 mg/dL08/26/2025 10:35 PM ED[facility] LABSpecimen (Source)Anatomical Location / LateralityCollection Method / VolumeCollection TimeReceived TimeBloodCapillary blood specimen / Tweqmwn9508/26/2025 10:33 PM EDT1 10:35 PM EDT Narrative Authorizing ProviderResult TypeResult StatusSanta Paredes [facility] POINT [facility] CARE TEST DOCKED DEVICE UNSOLICITED RESULTSFinal ResultPerforming OrganizationAddress City/State/ZIP CodePhone Number [facility] [address] [place] [phone] * Abo[employer]Rh [employer] Test - STAT (VERAB) (08/26/2025 10:06 PM EDT)ComponentValueRef RangeTest MethodAnalysis TimePerformed AtPathologist SignatureABO TYPEA 08/26/2025 11:26 PM [facility] BLOOD BANKRh SDWHPBG6408/26/2025 11:26 PM ED[facility] BLOOD BANKSpecimen (Source)Anatomical Location / LateralityCollection Method / VolumeCollection TimeReceived TimeBloodVenous blood specimen / Unknown Venipuncture / Trrlbmr8108/26/2025 10:06 PM EDT1 10:37 PM EDT Narrative Authorizing ProviderResult TypeResult StatusSanta Paredes [facility] BLOOD BANK TEST ORDERABLESFinal ResultPerforming OrganizationAddressCity/State/ZIP CodePhone Number [facility]ANK [address] [place] [address] * Type And Screen (08/26/2025 9:58 PM EDT)ComponentValueRef RangeTest Method Analysis TimePerformed AtPathologist SignatureABO TYPEA1 11:20 PM EDT [facility] BLOOD BANKRh GAALUTJ0808/26/2025 11:20 PM EDMAR[facility] BLOOD BANKANTIBODY DQDXHSTXW61/21/2025 11:20 PM [facility] BLOOD BANKSpecimen (Source)Anatomical Location / LateralityCollection Method / VolumeCollection TimeReceived Time BloodVenous blood specimen / UnknownVenipuncture / Kmlsydl2508/26/2025 9:58 PM EDT1 10:36 PM EDT Narrative Authorizing ProviderResult TypeResult StatusSanta Paredes [facility] BLOOD BANK TEST ORDERABLESFinal ResultPerforming OrganizationAddressty/State/ZIP CodePhone Number [facility] [address] [place] [address] * (ABNORMAL) B-type natriuretic peptide (08/26/2025 9:58 PM EDT)ComponentValue Ref RangeTest MethodAnalysis TimePerformed AtPathologist IwhmyqatfSLX889(H)0 - 99 pg/mL LAB IMMUNOASSAY METHOD 08/26/2025 11:55 PM [facility] LABSpecimen (Source)Anatomical Location / LateralityCollection Method / VolumeCollection TimeReceived TimeBloodVenous blood specimen / UnknownVenipuncture / Vimnswq7108/26/2025 9:58 PM EDT1 10:41 PM EDT Narrative [facility] - 08/26/2025 11:55 PM EDT <100 pg/mL - Heart failure unlikely 100-299 pg/mL - Intermediate probability of acute heart ?failure exacerbation. Correlate with clinical ?context and patient history. >=300 pg/mL - Heart Failure likely. Correlate with clinical ?context and patient history. Biotin interference may cause falsely decreased results. Patients taking a Biotin dose of up to 5 mg/day should refrain from taking Biotin for 24 hours before sample ??collection. Providers may contact their local laboratory for further information. Authorizing ProviderResult TypeResult StatusSanta [place]ARK[place] BLOOD ORDERABLES Final ResultPerforming OrganizationAddressCity/State/ZIP CodePhone Number [facility] [address] [place] [address] * (ABNORMAL) Hemoglobin A1c (08/26/2025 9:58 PM EDT)ComponentValueRef RangeTest MethodAnalysis TimePerformed AtPathologist SignatureHemoglobin A1C10.2(H)See comment %08/26/2025 11:54 PM EDMAR[facility] LABEstimated Average Tgzvpxp536Tft Established mg/dL08/26/2025 11:54 PM [facility] LABSpecimen (Source)Anatomical Location / LateralityCollection Method / VolumeCollection TimeReceived Time BloodVenous blood specimen / UnknownVenipuncture / Rmjqdha4908/26/2025 9:58 PM EDT1 10:40 PM EDT Narrative [facility] - 08/26/2025 11:54 PM EDT Diagnosis of Diabetes-Adults Non-Diabetic: < or = 5.6% Increased risk for developing diabetes: 5.7-6.4% Diagnostic of diabetes: > or = 6.5% Authorizing ProviderResult TypeResult StatusSanta [place] BLOOD ORDERABLES Final ResultPerforming OrganizationAddressCity/State/ZIP CodePhone Number [facility] [address] [address] * Echocardiogram (08/25/2025) Narrative 08/25/2025 Ordered by an unspecified provider. Authorizing ProviderResult TypeResult StatusGeneric Provider ScanningCV ECHO PROCEDURESFinal Result from Last 3 Months Insurance Advance Directives For more information, please contact: [phone] (Available ) * Full Code (Latest Code Status on File) Date ActivatedDate CjeadeqqsnyElffrgws41/22/2025 6:09 AMQuestionAnswerComments Plan of Care:* Code Status Discussion Completed Decision Maker:* Patient
--- OUTSIDE RECORDS SUMMARY | 2025-10-06 11:01 | XMS_ITS | Clinical Summary ---
Author Organization [facility] Address [address], [address] [place] [address] Care Team Providers Care Stock Layer Name Role Phone Ricardo Vallejo MD Primary Care Provider [phone] Allergies Active AllergyReactionsCriticalityNoted WtogLpmphwjhJrkkgmfhgthdeTzynz19/31/2016 YnuxotbafogvyZlvnl41/07/0748CgcytlchCgyoqUbty35/12/2022enicillinsAnaphylaxis High07/18/2022 Medications MedicationSigDispense QuantityRefillsLast FilledStart DateEnd DateStatus insulin 70-30 (HUMULIN;NOVOLIN) (70-30) 100 UNIT per ML injection vial Inject into the skin 2 times daily 80 units AM 50 Units PMActive atorvastatin (LIPITOR) 80 MG tablet Take 80 mg by mouth dailyActive losartan (COZAAR) 100 MG tablet Take 100 mg by mouth dailyActive metFORMIN (GLUCOPHAGE) 500 MG tablet Take 500 mg by mouth 2 times daily (with meals)Active MAGNESIUM OXIDE 400 PO Take 400 mg by mouth 2 times daily as neededActive aspirin 81 MG EC tablet Take 1 tablet by mouth daily 30 tablet ctive gabapentin (NEURONTIN) 600 MG tablet Take 1 tablet by mouth 3 times daily for 30 days. 90 tablet 07/22/2022ctive DULoxetine (CYMBALTA) 60 MG extended release capsule Take 1 capsule by mouth daily 30 capsule ctive hydrALAZINE (APRESOLINE) 25 MG tablet Take 1 tablet by mouth every 8 hours 90 tablet ctive furosemide (LASIX) 20 MG tablet Take 1 tablet by mouth daily 60 tablet ctive levothyroxine (SYNTHROID) 200 MCG tablet Take 1 tablet by mouth Daily 30 tablet 07/22/2022ctive ibuprofen (ADVIL;MOTRIN) 800 MG tablet Take 1 tablet by mouth every 8 hours as needed for Pain 30 tablet 07/26/2022ctive hydroCHLOROthiazide (HYDRODIURIL) 25 MG tablet Take 25 mg by mouth daily07/22/2022iscontinued(Stop Taking at Discharge) Active Problems ProblemNoted DateDiagnosed DateNephrostomy tube qtpilfswy11/19/2022epsis with acute renal failure without septic shock07/20/2022History of penicillin allergy 07/20/2022Metabolic bhqilebw32/14/4140Rusnmjzlbcpk07/14/2022Left flank pain 07/20/2022NSAID long-term use07/20/2022cute njkmmkffuqnuzt93/13/2022Left renal umphmcf1007/19/2022Kidney stone07/19/2022alculous jwksqybrgvmbpf29/12/2022KI (acute kidney injury)07/18/2022Type 2 diabetes mellitus, with long-term current use of ucozitg8607/18/20225403Jpvbpxtnzsrr83/12/6866Axbkbbaxdexayi11/12/2022epression 07/18/20222067Zntunzvvmknp47/12/2022History of coronary artery mcubuff6207/18/2022 Social History Tobacco UseTypesPacks/DayYears UsedDateSmoking Tobacco: Never Assessed CommentsNoSex and Gender InformationValueDate RecordedSex Assigned at BirthNot on fileLegal AisCcyifw13/12/2022 12:44 PM EDTGender IdentityNot on fileSexual OrientationNot on file Last Filed Vital Signs Vital SignReadingTime TakenCommentsBlood Vdbgbwmh914/65007/26/2022 10:45 AM EDT Sfgfs145907/26/2022 10:45 AM KUPYfrhqlmmmbi92.8 ??C (98.2 ??F)07/26/2022 10:45 AM EDTRespiratory Twpr092507/26/2022 10:45 AM EDTOxygen Kkdyxmdsim08%07/26/2022 10:45 AM EDTInhaled Oxygen Concentration--Kpigce508.9 kg (240 lb)08/05/2022 9:03 AM UQKOjncba057.1 cm (5' 5 )08/05/2022 9:03 AM EDTBody Mass Index39.9408/05/2022 9:03 AM EDT Plan of Treatment Not on file Insurance * Guarantor: Madison Thompson TypeRelation to PatientDate of BirthPhone Billing AddressPersonal/XbmbbaAsqi1970 [address] [place] [address] Advance Directives * Full Code (Latest Code Status on File) Date ActivatedDate InactivatedComments07/25/2022 8:11 PM07/26/2022 7:14 PM * Full Code Date ActivatedDate InactivatedComments07/18/2022 6:14 PM07/22/2022 6:51 PM Care Teams Team MemberRelationshipSpecialtyStart DateEnd Date Ricardo Vallejo MD [address] [place] [address] PCP - GeneralFamily Medicine07/22/22
--- OUTSIDE RECORDS SUMMARY | 2025-10-06 11:01 | XMS_ITS | Clinical Summary ---
Author Organization [employer] [facility] Address [id number] [place] [address] Care Team Providers Care Airport Operations Manager Name Role Phone Ricardo Vallejo MD Primary Care Provider [phone] Allergies Active AllergyReactionsCriticalityNoted FwqfByvphpljKxywzbkfmeqqvQptph73/31/2016 XecqeigtpkbnwYrbln36/07/0862Azmtaxof81/27/2016 Other reaction(s): Unknown Rfksxwnepgy09/27/2016 Other reaction(s): Unknown Medications MedicationSigDispense QuantityRefillsLast FilledStart DateEnd DateStatus aspirin 81 mg Take 1 tablet (81 mg total) by mouth.Active hydroCHLOROthiazide (HYDRODIURIL) 25 mg tablet 1 tablet (25 mg total) daily.Active gabapentin (NEURONTIN) 600 mg tablet Take 2 tablets (1,200 mg total) by mouth in the morning and 2 tablets (1,200 mg total) before bedtime.Active atorvastatin (LIPITOR) 80 mg tablet Take 1 tablet (80 mg total) by mouth nightly. 30 tablet 12/28/2021ctive insulin NPH and regular human (HumuLIN 70/30 U-100 Insulin) 100 unit/mL (70-30) injection 80 units am and 50 units pm 10 mL 12012/28/2021ctive levothyroxine (SYNTHROID, LEVOTHROID) 200 MCG tablet Take 1 tablet (200 mcg total) by mouth daily. 30 tablet 12/29/2021ctive losartan (COZAAR) 100 mg tablet Take 1 tablet (100 mg total) by mouth daily. 30 tablet 12/29/2021ctive magnesium oxide (MAGOX) 400 mg tablet Take 1 tablet (400 mg total) by mouth daily. 30 tablet 12/28/2021ctive insulin syringe-needle U-100 1 mL 31 gauge x 5/16 syringe USE TO ADMINISTER INSULIN TWICE DAILY PTITLYWJ95/15/2022ctive semaglutide (OZEMPIC SUBQ) Inject under the skin.Active Active Problems ProblemNoted DateDiagnosed DateCerebrovascular accident (CVA) due to embolism of precerebral wdttfc0908/06/20240864Wkaihxekhndno34/29/2024KI (acute kidney injury) 08/04/2024Vision voylbqk1608/04/20247146Jyypkdiwwuskbp48/29/2024cute nonintractable headache, unspecified headache type08/03/2024omplicated headache syndromes 02/01/20229529Tyopnywj37/20/2022Type 2 diabetes mellitus with neurologic complication, with long-term current use of ronrnmu6012/26/2021Essential kgpfjldcduup84/20/2022Mixed dedkorrkyytbjy06/20/2022Internal carotid artery stenosis, left12/25/2021 Immunizations No known immunizations Family History Medical HistoryRelationNameCommentsDiabetesFatherHeart diseaseFatherCancerMother DiabetesMotherRelationNameStatusCommentsFatherMotherOther Social History Tobacco UseTypesPacks/DayYears UsedDateSmoking Tobacco: NeverSmokeless Tobacco: NeverAlcohol UseStandard Drinks/WeekCommentsNot Currently0 (1 standard drink = 0.6 oz pure alcohol)[facility] UtilitiesAnswerDate RecordedIn the past 12 months has the [employer], gas, oil, or water [employer] threatened to shut off services in your home?No08/04/2024RAPARE - TransportationAnswerDate RecordedIn the past 12 months, has lack of transportation kept you from medical appointments or from getting medications?No08/04/2024In the past 12 months, has lack of transportation kept you from meetings, work, or from getting things needed for daily living?No08/04/2024Housing InstabilityAnswerDate RecordedAre you worried or concerned that in the next two months you may not have stable housing that you own, rent or stay in as a part of a household?No08/04/2024hildcareAnswer Date NhfxdodzNpxgzizkuFgwefcw44/12/2019EmploymentAnswerDate RecordedEmployment Dcdjyio9604/17/2019Hunger ScreeningAnswerDate RecordedWithin the past 12 months we worried whether our food would run out before we got money to buy more.Never True08/04/2024Within the past 12 months the food we bought just didn't last and we didn't have money to get more.Never True4Purpose - LifeAnswerDate RecordedPurpose and direction in kjbaPkzemag72/11/2021CommentsNoSex and Gender InformationValueDate RecordedSex Assigned at BirthNot on fileLegal Sex Hltleu2606/11/2015 11:29 AM EDTGender IdentityNot on fileSexual OrientationNot on file Last Filed Vital Signs Vital SignReadingTime TakenCommentsBlood Cwsdwomh213/8408/06/2024 3:12 PM EDT Jyiex025208/06/2024 3:12 PM LXGMfpaxsviwci54.6 ??C (97.9 ??F)08/06/2024 3:12 PM EDTRespiratory Nopq1126 3:12 PM EDTOxygen Uregeakjes52%08/06/2024 3:12 PM EDTInhaled Oxygen Concentration--Phucbh169.8 kg (246 lb 7.6 oz)08/06/2024 5:00 AM VPAUinntq027.1 cm (5' 5 )08/03/2024 9:29 PM EDTBody Mass Index41.02 08/03/2024 9:29 PM EDT Plan of Treatment Health MaintenanceDue DateLast DoneCommentsDiabetic Ophthalmology Exam1971 Statin Use: Hymtumqc1971Depression Pwmvksijq09/21/1983Diabetic Foot Exam 1989Zoster (Shingles) Vaccine (1 of 2)2021OVID-19 Vaccine (3 - season), 03/06/2021Influenza Ehcbsjt5807/07/2025 10/28/2021, 08/04/2020, 11/01/2019, Additional history existsTobacco Screening /4Adult BMI Axwppbjua734DTaP,Tdap and Td Vaccines (2 - Td or Tdap) Goals GoalPatient Goal TypeAssociated ProblemsRecent ProgressPatient-Stated?Author home Emily Kc LSW Note: Evaluation of progress towards goal: awaiting test results, pt would like to go home today Medical Devices Not on file Insurance Advance Directives * Full Code (Latest Code Status on File) Date ActivatedDate InactivatedComments08/03/2024 6:27 PM10 6:40 PM * Full Code Date ActivatedDate InactivatedComments12/26/2021 1:05 PM2 2:59 PM Care Teams Team MemberRelationshipSpecialtyStart DateEnd Date Ricardo Vallejo MD PCP - GeneralFamily Medicine12/25/21
--- OUTSIDE RECORDS SUMMARY | 2025-10-06 11:20 | XMS_ITS | CCD ---
Author Organization [facility] Care Team Providers Care Survey Coordinator Name Role Phone RICARDO RAMOS Referring Unavailable RICARDO RAMOS Primary Care Unavailable SHOLA VILLAFUERTE Attending Unavailable SHOLA VILLAFUERTE Admitting Unavailable Ricardo Ramos MD Primary Care Provider [phone] CHRISTI CHANCE Referring Unavailable RICARDO RAMOS Primary Care Unavailable RICARDO RAMOS Primary Care Unavailable RADHA, ROBERT Consulting Unavailable PALOMA ARCEO Admitting Unavailable PALOMA ARCEO Attending Unavailable KECHINO ADAN S Consulting Unavailable ÓSCAR LIVIA Admitting Unavailable ÓSCAR LIVIA Attending Unavailable RICARDO RAMOS Primary Care Unavailable NORIEGA, EMIR Consulting [...] Unavailanna ALCANTAR, DR MARAH Estrada Consulting Unavailable RICARDO RAMOS Primary Care Unavailable MARAH ELLISON Attending Unavailable EN EPPERSON Admitting Unavailable TANIA VALERIO Consulting Unavailable Richard FRANKS, Ricardo Cantor Primary Care Provider [phone] Oscar Cevallos MD Admit Provider Demarco Last MD Other Provider [phone] Deann Zamora APRN Other Provider [phone] Reid Carrillo MD Other Provider [phone] Cynthia Pearce RN Other Provider Unavailable Geno Menon MD Other Provider Aime Cee MD Attending Provider Aime Cee MD Other Provider Cynthia Pearce Consulting Unavailable Ricardo Ramos Primary Care Unavailable Demarco Last Attending Unavailable Oscar Cevallos Admitting Unavailable Cynthia Pearce Consulting Unavailable Aime Cee Consulting Unavailable Reid Carrillo Consulting UnaGeno Levy Consulting Unavailable Deann Zamora Consulting Unavailable Unavailable Primary Care Provider UnavailAIME Hill Referring Unavailable SPENCER KONG Admitting Unavailable KHARI LUNDBERG Consulting Unavailable EJNNA BRAR Attending Unavailable BRY CARRERA Attending Unavailable DUGLAS HUDSON Referring Unavailable Unavailable Unavailable Unavailable Allergies Allergy ClassificationReported Allergen(s)Allergy TypeDate of OnsetReaction(s) FacilityOpioid Agonists (1 source)Morphine; Translations: [MORPHINE]Drug Cgrddqe74-41-4673[facility] RepositoryPenicillins (antibiotic) (1 source)Penicillin; Translations: [PENICILLIN]Drug Eblcpgq26-76-6200Krv [facility]ository (4 sources)HYDROmorphone; Translations: [HYDROMORPHONE]Drug Mzzbzna17-51-9511 [facility] (8 sources)Morphine; Translations: [MORPHINE]Drug Fmpsxwv94-52-7527KoefnXQQRiverside [facility] Work Phone: (6 sources)Penicillins; Translations: [Penicillins]Propensity to adverse reactions to xgnu56-60-9255GyzlnbfrkxhSOP [facility] (7 sources)Ciprofloxacin; Translations: [CIPROFLOXACIN]Drug Hvydrey61-18-6562 [facility] (5 sources)penicillAMINE; Translations: [PENICILLAMINE]Drug Askporz14-07-0779 [facility] (2 sources)CiprofloxacinDrug Mkercnj96-94-9787[facility] (1 source)HYDROmorphoneDrug AllergyMercy Health Anderson Hospital Repository (2 sources)MorphineDrug Cyodtnr10-73-7870BhmMer[facility] Rep[facility] (1 source)CiprofloxacinDrug Xygdmej26-04-2063[facility]ittwbihaPark[facility] Rep[facility] (1 source)MorphineDrug Ybpsrkx42-49-2804RnsxpvetyParkwood Hospital Repository (1 source)penicillAMINEDrug Yzoftha97-70-6690OwoscnfriParkwood Hospital Repository Medications Current Medications MedicationDrug Class(es)DatesSig (Normalized)Sig (Original)acetaminophen 325 mg oral tablet (3 sources)Start: 16-07-5774zxgc 650 mg by mouth every six hours as neededStart: 59-19-2588hyjjlyogeoycg (TYLENOL) tablet 650 mgStart: 44-07-9948ixxtdcolfptbp (TYLENOL) tablet 650 mgacetaminophen 325 mg / oxyCODONE hydrochloride 5 mg oral tablet (3 sources)Opioid AgonistStart: 07-26-2022 End: 69-18-5730bqbz 1 tablet by mouth every eight hours as needed for pain oxyCODONE-acetaminophen (PERCOCET) 5-325 MG per tablet Indications: Nephrostomy complication (HCC) Take 1 tablet by mouth every 8 hours as needed for Pain for up to 3 days. 9 tablet 0 07/26/2022 07/29/2022 ActiveStart: 46-18-0147qxhSAUXKU- acetaminophen (PERCOCET) 5-325 MG per tablet 1 tabletStart: 07-18-2022 End: 96-26-1093ufdNHQDMK-acetaminophen (PERCOCET) 5-325 MG per tablet 2 tablet amLODIPine 10 mg oral tablet (2 sources)Dihydropyridine Calcium Channel BlockerStart: 66-24-5622Itiye: 69-24-3419sdrhdtao 5 mg oral tablet (2 sources)Factor Xa InhibitorStart: 21-58-4283zixgqdzkxoyy 80 mg oral tablet (9 sources)HMG-CoA Reductase InhibitorStart: 36-81-9470Dwzju: 09-02-2024 End: 77-52-4746Tbzms: 23-64-7117liis 80 mg by mouth once daily80 mg, Oral, DAILY, First dose on Mon07/26/22 at 0900, Until Discontinuedcholecalciferol 0.025 mg oral tablet (3 sources)Vitamin DStart: 46-90-1915Zyqeq: 87-65-6622grjt 1 tablet by mouth once dailyCholecalciferol (Vitamin D3) 50 mcg (2,000 unit) tablet Active 50 MCG PO Daily August 25, 2025 12:00am Complies with drug therapyezetimibe 10 mg oral tablet (2 sources)Dietary Cholesterol Absorption InhibitorStart: 02-82-1266Tjnem: 25-45-9972ujsrgqtvdc 300 mg oral capsule (9 sources)Anti-epileptic AgentStart: 72-00-9848Osncw: 46-02-8876ushm 1 tablet by mouth twice dailyGabapentin 600 mg tablet Active 600 MG PO Twice daily August 25, 2025 12:00am Complies with drugtherapyStart: 07-22-2022 End: 83-17-8649gczb 600 mg by mouth three times wnnio887 mg, Oral, 3 TIMES DAILY, First dose on Mon07/25/22 at 2300, Until DiscontinuedStart: 07-18-2022 gabapentin (NEURONTIN) capsule 600 mgStart: 49-71-2139cgsx 2 tablets by mouth every twelve hoursGabapentin 600 MG 2 capsules Orally twice a day for 5 days March, Activeglucagon (rdna) 1 mg injection (4 sources)Antihypoglycemic AgentStart: 58-68-0140Awkgv: 48-64-9396svucqy 1 mg by subcutaneous injection every hour as needed1 mg, SubCUTAneous, PRN, Starting on Mon07/26/22 at 1229, Until Discontinued, Low blood sugar, Blood glucose LESS THAN 70 mg/dL and patient NOT ALERT or NPO and does not have IV access. After administration, attempt intravenous access and start dextrose 10% at 100 mL/hr. Repeat blood glucose in 15 minutes x 2 and notify provider.Start: 07-18-2022 inject 1 mg by subcutaneous injection every hour as needed1 mg, SubCUTAneous, PRN, Starting on Mon07/18/22 at 1814, Until Discontinued, Low blood sugar, Blood glucose LESS THAN 70 mg/dL and patient NOT ALERT or NPO and does not have IV access. After administration, attempt intravenous access and start dextrose 10% at 100 mL/hr. Repeat blood glucose in 15 minutes x 2 and notify provider.50 ml glucose 500 mg/ml prefilled syringe (8 sources)Start: 82-61-2779Najtt: 21-63-6006vnij 1 mL intravenously every hour IntraVENous, at 100 mL/hr, CONTINUOUS PRN, if blood glucose remains LESS THAN 70 mg/dL after 2 dextrose 10% intravenous boluses or administration of glucagon, Starting on Mon07/26/22 at 1229 If bloodglucose fails to stabilize after 2 dextrose 10% intravenous boluses or glucagon administration, start dextrose 10% infusion at 100 mL/hour and repeat blood glucose at 30 and 60 minutes. If blood glucose is GREATER THAN 70 mg/dL after 60 minutes, discontinue dextrose 10% infusion.Start: 26-07-4398ynyrpeox bolus 10% 125 mLStart: 40-77-395679 g (4 tablet), Oral, PRN, Starting on Mon07/26/22 at 1229, Until Discontinued, Low blood sugar Ifblood glucose is LESS THAN 70 mg/dL and patient is alert and tolerating oral. Give 4 tablets (16g) Repeat blood glucose in 15 minutes. If blood glucose is LESS THAN 70 mg/dL, repeattreatment and recheck blood glucose in 15 minutes x 2. If blood glucose remains LESS THAN 70 mg/dL, notify provider.Start: 45-52-3254dwif 1 mL intravenously every hourIntraVENous, at 100 mL/hr, CONTINUOUS PRN, if blood glucose remains LESS THAN 70 mg/dL after 2 dextrose 10% intravenous boluses or administration of glucagon, Starting on Mon07/18/22 at 1814 If bloodglucose fails to stabilize after 2 dextrose 10% intravenous boluses or glucagon administration, start dextrose 10% infusion at 100 mL/hour and repeat blood glucose at 30 and 60 minutes. If blood glucose is GREATER THAN 70 mg/dL after 60 minutes, discontinue dextrose 10% infusion.Start: 35-74-6462ugkzqhyu bolus 10% 125 mLStart: 75-50-600600 g (4 tablet), Oral, PRN, Starting on Mon07/18/22 at 1814, Until Discontinued, Low blood sugar Ifblood glucose is LESS THAN 70 mg/dL and patient is alert and tolerating oral. Give 4 tablets (16g) Repeat blood glucose in 15 minutes. If blood glucose is LESS THAN 70 mg/dL, repeattreatment and recheck blood glucose in 15 minutes x 2. If blood glucose remains LESS THAN 70 mg/dL,notify provider. hydrALAZINE hydrochloride 25 mg oral tablet (10 sources)Arteriolar VasodilatorStart: 47-31-0720Tbrcg: 05-02-2024 End: 21-33-0737Tvixc: 50-56-8855nzii 1 dose by mouth three times daily25 mg, Oral, EVERY 8 HOURS SCHEDULED (3 times per day), First dose on Mon07/25/22 at 2300, Until DiscontinuedStart: 07-22-2022 End: 47-87-3854bfzy 1 tablet by mouth every eight hourshydrALAZINE (APRESOLINE) 25 MG tablet Take 1 tablet by mouth every 8 hours 90 tablet 2 07/22/2022 ActivehydroCHLOROthiazide 25 mg oral tablet (2 sources)Thiazide Diuretic End: 10-36-5446lruv 1 tablet by mouth every twenty-four hourshydroCHLOROthiazide 25 MG 1 tablet in the morning Orally Once a day Activeibuprofen 800 mg oral tablet (1 source)Nonsteroidal Anti-inflammatory DrugStart: 07-26-2022 End: 96-09-3255hfye 1 tablet by mouth every eight hours as needed for pain ibuprofen (ADVIL;MOTRIN) 800 MG tablet Take 1 tablet by mouth every 8 hours as needed for Pain 30 tablet 0 07/26/2022 08/05/2022 Active3 ml insulin aspart, human 100 unt/ml pen injector (1 source)Insulin AnalogStart: 37-30-1865uarspkj glargine 100 unt/ml injectable solution (5 sources)Insulin AnalogStart: 42-88-3959Ldtbk: 20-84-5522povdpes glargine (LANTUS) injection vial 73 UnitsStart: 46-37-6279nznryri glargine (LANTUS) injection vial 50 UnitsStart: 07-20-2022 End: 44-75-1568eafytxs glargine (LANTUS) injection vial 35 UnitsStart: 07-19-2022 End: 51-68-6433akplnth glargine (LANTUS) injection vial 25 Unitsinsulin isophane, human 70 unt/ml / insulin, regular, human 30 unt/ml injectable suspension (5 sources)InsulinStart: 10-55-4007EztdANB 70/30 (70-30) 100 UNIT/ML as directed Subcutaneous 80 units every morning and 50 units at night Activeinsulin 70-30 (HUMULIN;NOVOLIN) (70-30) 100 UNIT per ML injection vial Inject into the skin 2 timesdaily 80 units AM 50 Units PM 0 Activeinsulin lispro 100 unt/ml injectable solution (9 sources)Insulin AnalogStart: 08-27-2025 End: 92-08-1085Iawzr: 95-34-8442ajhxtal lispro (HUMALOG) injection vial 13 Units Start: 07-20-2022 End: 79-31-5829doawiyf lispro (HUMALOG) injection vial 10 UnitsStart: 07-20-2022 insulin lispro (HUMALOG) injection vial 5 UnitsStart: 59-56-3629kiakbdt lispro (HUMALOG) injection vial 0-4 UnitsStart: 07-18-2022 End: -8 Units, SubCUTAneous, 3 TIMES DAILY WITH MEALS, First dose on Mon07/18/22 at 1815, Until Discontinued Medium Dose Corrective Algorithm Glucose: Dose: 70-199 No Insulin 200-249 2 Units 250-299 4 Units 300-349 6 Units Over 349 8 Units and notify physician1 ml ketorolac tromethamine 30 mg/ml cartridge (2 sources)Nonsteroidal Anti-inflammatory Drug, Cyclooxygenase InhibitorStart: 07-25-2022 End: 65-45-1683gqrtircvz (TORADOL) injection 30 mglevothyroxine sodium 0.125 mg oral tablet (9 sources)l-ThyroxineStart: 38-91-7254Pqgwt: 46-04-8005gevo 200 ug by mouth once mcg, Oral, DAILY, First dose on Mon07/26/22 at 0700, Until Discontinued Tube feeding (TF) interaction, obtain physician order to manage, recommend holding TF for 30 minutes before and after dose.Start: 07-22-2022 End: 28-19-1483cqqr 1 tablet by mouth once dailylevothyroxine (SYNTHROID) 200 MCG tablet Take 1 tablet by mouth Daily 30 tablet 0 07/22/2022 08/21/2022 Active Start: 09-60-2363pzso 200 ug by mouth once qwuur793 mcg, Oral, DAILY, First dose on Mon07/19/22 at 0700, Until Discontinued Tube feeding (TF) interaction, obtain physician order to manage, recommend holding TF for 30 minutes before and after dose.take 1 tablet by mouth once daily in the morningSynthroid 200 MCG 1 tablet in the morning on an empty stomach Orally Once a day Activemelatonin 3 mg oral tablet (1 source)Start: 42-36-3151wuetymgiox tartrate 25 mg oral tablet (1 source)beta-Adrenergic BlockerStart: 64-36-5751lracgeveekm (ZOFRAN-ODT) disintegrating tablet 4 mg (1 source)Start: 04-20-8038vzalditusdl (ZOFRAN-ODT) disintegrating tablet 4 mg oxyCODONE hydrochloride 5 mg oral tablet (2 sources)Opioid AgonistStart: 71-91-1557kegj 5 mg by mouth every six hours as neededStart: 10-51-8375uxgGSPAVF (ROXICODONE) immediate release tablet 5 mg pioglitazone 15 mg oral tablet (3 sources)Peroxisome Proliferator Receptor alpha Agonist, Peroxisome Proliferator Receptor gamma Agonist, ThiazolidinedioneStart: 08-25-2025 End: 26-40-55325524 ml sodium chloride 9 mg/ml injection (10 sources)Start: 22-11-3741ujgh 25 mL intravenously every hour as mL, IntraVENous, at 100 mL/hr, PRN, If patient receiving piggyback infusions without ordered maintenance IV fluids or with frequent/long duration piggyback infusions, Starting on Mon07/25/22 at 2002 Administer at the same rate as the piggyback being infused.Start: 86-92-6552bfni 1 dose intravenously twice daily5- 40 mL, IntraVENous, EVERY 12 HOURS SCHEDULED (2 [...] mL Midline or Central Line = 20 mL/lumenStart: 82-89-0965xcrz 5-40 mL intravenously once as needed5-40 mL, IntraVENous, PRN, Starting on Mon07/25/22 at 2002, Until Discontinued, Line Care, After every IV line use For Line Patency: Peripheral IV = 5 mL; Midline or Central Line = 10 mL/lumen.&nb sp; If following IV push medication, administer flush [...] mL Midline or Central Line = 20 mL/lumenStart: 82-07-4090dscafa chloride flush 0.9 % injection 5-40 mLStart: 07-20-2022 End: .9 % sodium chloride bolusStart: 07-18-2022 End: .9 % sodium chloride infusionStart: 07-18-2022 End: 14-39-5819ZfdnyBLZjkg, at 5-250 mL/hr, PRN, if patient receiving piggyback infusions and maintenance fluids are not ordered OR KVO fluids to protect IV site / prevent frequent line interruptions/ long duration, Starting on Mon07/18/22 at 1814 For piggyback infusion, administer at same rate as piggyback for atotal of 25 mL. Enter 25 mL into dose field and piggyback rate into rate field of order. If piggyback is infusing at a rate less than 100 mL/hr, enter 25 mL into dose field and 100 mL/hr into rate field of order. For KVO fluids, enter rate of 20 mL/hr or less into rate field of order.Start: 07-18-2022 End: 35-90-7203rdsh 5-40 mL intravenously once as needed5-40 mL, IntraVENous, PRN, Starting on Mon07/18/22 at 1814, Until Lizy 07/21/22 at 1559, Line Care, Af ter every IV line use For Line Patency: Peripheral IV = 5 mL; Midline or Central Line = 10 mL/lumen. If following IV push medication, administer flush at same rate as the IV push. Flush volume is determined by type of infusion therapy being given. For non-viscous solutions use: Peripheral IV = 5 mL Midline or Central Line = 10 mL/lumen&nb sp; For viscous solutions (i.e. blood components, parenteral nutrition, contrast media, orafter obtaining blood sample) use: Peripheral IV = 10 mL Midline or Central Line = 20 mL/lumensulfamethoxazole 800 mg / trimethoprim 160 mg oral tablet (2 sources)Dihydrofolate Reductase Inhibitor Antibacterial, Sulfonamide AntimicrobialStart: 09-01-2025 End: 77-79-4866hzulfmftnl 90 mg oral tablet (2 sources)Start: 08-28-2025 End: 06-44-5852zsabkoxnugt (TYGACIL) 50 mg in sodium chloride 0.9 % 100 mL IVPB (1 source)Start: 00-84-5481aixmtqggfap (TYGACIL) 50 mg in sodium chloride 0.9 % 100 mL IVPB (2 sources)Start: 94-29-8219Cjbrm: 08-28-2025 End: 08-28-2025 (1 source)Start: 81-26-8280gqrw 4 mg by mouth every eight hours as needed[Order 1 Start] Name: ondansetron (Zofran) tablet 4 mg Signed Summary: 4 mg, oral, Every 8 hours PRN, nausea/vomiting, first line, Starting on Mon08/26/25 at 2223 [Order 1 End] [Order 2 Start] Name:ondansetron (Zofran) injection 4 mg Signed Summary: 4 mg, intravenous, Every 8 hours PRN, nausea/vomiting, first line, Starting on Mon08/26/25 at 2223, Give IV if patient is unable to take orally. When administering via IV Push, administer over 3-5 minutes. [Order 2 End] Completed/Discontinued Medications MedicationDrug Class(es)DatesSig (Normalized)Sig (Original)aspirin 81 mg chewable tablet (8 sources)Platelet Aggregation Inhibitor, Nonsteroidal Anti-inflammatory Drug Start: 08-27-2025 End: 50-35-0183Blybg: 25-96-5184diye 1 capsule by mouth once dailyAspirin 81 mg capsule Active 81 MG PO Daily August 25, 2025 12:00am Complies with drug therapyStart: 07-22-2022 End: 12-97-4595bgyr 81 mg by mouth once daily81 mg, Oral, DAILY, First dose on Mon07/26/22 at 0900, Until Discontinued Do not crush or break.Aspirin 81 MG 1 daily Activeciprofloxacin 500 mg oral tablet (5 sources)Quinolone AntimicrobialStart: 07-22-2022 End: 10-75-3727792 mg, Oral, 2 TIMES DAILY, First dose on Mon07/25/22 at 2300, Until Discontinued Antimicrobial Indications: Urinary Tract Infection UTI duration of therapy: Other Do not take with dairy products orcalcium-fortified juices. Tube feeding (TF) interaction, obtain physician order to manage. Recommend holding TF for 1 hr before and 1 hr after dose. Due to decreased absorption do not give by J tube. Start: 07-18-2022 End: 70-08-9227zyedkqsvoksak (CIPRO) IVPB 400 mgclopidogrel 75 mg oral tablet (3 sources)P2Y12 Platelet InhibitorStart: 08-29-2024 End: 88-68-9315561 ml dexmedetomidine 0.004 mg/ml injection (1 source)Central alpha-2 Adrenergic AgonistStart: 08-27-2025 End: 08-83-7831MWUdwedtuv 30 mg delayed release oral capsule (6 sources)Serotonin and Norepinephrine Reuptake InhibitorStart: 45-79-8272atfq 1 capsule by mouth once daily60 mg, Oral, DAILY, First dose on Mon07/26/22 at 0900, Until Discontinued Do not crush or break. May add contents of capsule to apple juice or apple sauce, but not chocolate.Start: 07-22-2022 End: 06-08-4736muhc 1 capsule by mouth once dailyDULoxetine (CYMBALTA) 60 MG extended release capsule Take 1 capsule by mouth daily 30 capsule 1 07/22/2022 08/21/2022 ActiveStart: 72-26-6270BCPjllfaqv (CYMBALTA) extended release capsule 60 mgempagliflozin (1 source)Sodium-Glucose Cotransporter 2 InhibitorJARDIANCE Not-Taking1 ml fentaNYL 0.05 mg/ml injection (10 sources)Opioid AgonistStart: 08-28-2025 End: 21-89-8869Gasbq: 08-28-2025 End: 56-24-7457Ggqjx: 07-26-2022 End: 69-74-4677sdcshDBM (SUBLIMAZE) injectionStart: 07-19-2022 End: 01-39-6867ajlzhAEA (SUBLIMAZE) injectionStart: 07-18-2022 End: 05-43-2028mbocdLPV (SUBLIMAZE) injection 50 mcgfurosemide 20 mg oral tablet (5 sources)Loop DiureticStart: 51-31-1253rmes 20 mg by mouth once daily20 mg, Oral, DAILY, First dose on Mon07/26/22 at 0900, Until DiscontinuedStart: 07-23-2022 End: 76-55-4843lpoe 1 tablet by mouth once dailyfurosemide (LASIX) 20 MG tablet Take 1 tablet by mouth daily 60 tablet 3 07/23/2022 ActiveStart: 45-22-5570uiic 1 tablet by mouth once dailyfurosemide (LASIX) 20 MG tablet Take 1 tablet by mouth daily 60 tablet 3 07/23/2022 ActiveStart: 32-56-8058bdwbjjuwlu (LASIX) tablet 20 mg250 ml heparin sodium, porcine 100 unt/ml injection (6 sources)Unfractionated Heparin, Anti-coagulantStart: 08-30-2025 End: 96-27-8077Xrmvt: 08-26-2025 End: 36-28-5027Dixnc: 08-26-2025 End: 59-58-2542Ittmk: 63-25-0294Vgfeh: 93-08-2636kwxvug 1 dose by subcutaneous injection three times daily5,000 Units, SubCUTAneous, EVERY 8 HOURS SCHEDULED (3 times per day), First dose on Mon07/18/22 at 2200, Until Discontinued Hold until okay with urology to give heparin0.5 ml HYDROmorphone hydrochloride 1 mg/ml prefilled syringe (2 sources)Opioid AgonistStart: 08-27-2025 End: 66-09-3828Bydbn: 08-26-2025 End: 24-88-0870ucsetmloj (ISOVUE-370) 76 % injection 50 mL (2 sources)Start: 07-26-2022 End: 44-71-3347ccffzmxaa (ISOVUE-370) 76 % injection 50 mLStart: 07-19-2022 End: 04-86-0775hummxlfxc (ISOVUE-370) 76 % injection 50 mLisosorbide dinitrate 20 mg oral tablet (1 source)Nitrate VasodilatorStart: 08-28-2025 End: 34-80-2112wrmmggdvd hydrochloride 5 mg/ml injectable solution (1 source)beta-Adrenergic BlockerStart: 07-20-2022 End: 26-93-0131lzkavljnh (NORMODYNE;TRANDATE) injection 10 mglosartan potassium 50 mg oral tablet (4 sources)Angiotensin 2 Receptor BlockerStart: 88-98-3936oioh 100 mg by mouth once goplq324 mg, Oral, DAILY, First dose on Mon07/26/22 at 0900, Until Discontinuedtake 1 tablet by mouth every twenty-four hoursLosartan Potassium 100 MG 1 tablet Orally Once a day Activemagnesium oxide 400 mg oral tablet (4 sources)Start: 81-36-7333kysq 400 mg by mouth twice daily as mg, Oral, 2 TIMES DAILY PRN, Starting on Mon07/25/22 at 2253, Until Discontinued, for low Magtake 1 tablet by mouth every twenty-four hoursMagnesium Oxide 400 MG 1 tablet as needed Orally Once a day ActivemetFORMIN hydrochloride 500 mg oral tablet (4 sources)BiguanideStart: 02-60-4623xonj 500 mg by mouth twice daily at mg, Oral, 2 TIMES DAILY WITH MEALS, First dose on Mon07/26/22 at 1700, Until DiscontinuedmethylPREDNISolone (1 source)CorticosteroidStart: 75-68-1989Pahb-Medrol 40 mg 10 Jul, 2016 60 mg2 ml midazolam 1 mg/ml injection (1 source)BenzodiazepineStart: 07-19-2022 End: 92-54-1709vtxupiscp PF (VERSED) ctuldyqve719 ml nitroglycerin 0.2 mg/ml injection (3 sources)Nitrate VasodilatorStart: 08-27-2025 End: 40-84-3919Mclpm: 08-27-2025 End: 44-95-0008700 ml sodium nitroprusside 0.5 mg/ml injection (1 source)Start: 08-26-2025 End: ml ondansetron 2 mg/ml injection (1 source)Serotonin-3 Receptor AntagonistStart: mg, IntraVENous, EVERY 4 HOURS PRN, Starting on Mon07/25/22 at 2003, Until Discontinued, Nausea, Vomitingpolyethylene glycol 3350 99926 mg powder for oral solution (2 sources)Osmotic LaxativeStart: g, Oral, DAILY PRN, Starting on Mon07/25/22 at 2003, Until Discontinued, Constipation First linetherapy for constipationStart: g, Oral, DAILY PRN, Starting on Mon07/18/22 at 1814, Until Discontinued, Constipation First linetherapy for constipation microencapsulated potassium chloride 20 meq extended release oral tablet (3 sources)Start: 09-01-2025 End: 79-11-9216Ncwwk: 08-31-2025 End: 30-37-2539Zxdyu: 64-12-5319ssgrmoozt chloride (KLOR-CON M) extended release tablet 40 mEqrosuvastatin (1 source)HMG-CoA Reductase InhibitorCrestor Not-Takingsodium bicarbonate 75 mEq in sodium chloride 0.45 % 1,000 mL infusion (1 source)Start: 07-20-2022 End: 48-06-3973zktqwy bicarbonate 75 mEq in sodium chloride 0.45 % 1,000 mL infusionsodium zirconium cyclosilicate 00298 mg powder for oral suspension (2 sources)Start: 08-28-2025 End: 98-06-1600elfqyggxql (NEBCIN) 200 mg in dextrose 5 % 100 mL IVPB (1 source)Start: 07-20-2022 End: 07-55-5193hkintvhnaf (NEBCIN) 200 mg in dextrose 5 % 100 mL IVPBtraZODone hydrochloride 50 mg oral tablet (1 source)Serotonin Reuptake InhibitorStart: 08-27-2025 End: 05-15-6650rfgidbxogdkkvadtm (2 sources)AntiemeticStart: 08-26-2025 End: 59-41-5785Dohjo: 08-26-2025 End: 71-58-2468ylnedndn sodium 5 mg oral tablet (2 sources)Vitamin K AntagonistStart: 09-01-2025 End: 53-00-5926Chdlb: 08-30-2025 End: 09-01-2025 (3 sources)Start: 08-31-2025 End: 92-64-9180Ozeok: 08-30-2025 End: 82-78-6426aakl 9045-7876 [IU] intravenously every four hours as needed Start: 08-29-2025 End: 08-28-2025 Problems Active Problems Problem ClassificationProblemDateDocumented DateEpisodic/ChronicAcute and unspecified renal failure (8 sources)Acute injury of kidney; Translations: [Acute kidney failure, unspecified]Onset: 03-62-4259BforvlshLekff cerebrovascular disease (1 source)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; Translations: [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]Onset: 25-08-8048IrmullqHxeka myocardial infarction (3 sources)Myocardial infarction; Translations: [Non-ST elevation (NSTEMI) myocardial infarction]Onset: 374596-31-7981MqgsdroYjvlrxhi reactions (3 sources)Allergy to penicillin; Translations: [Allergy status to penicillin] Onset: 24-93-9642SebepmnyCtqwriodk and vision defects (1 source)Unspecified visual disturbance; Translations: [Unspecified visual disturbance]Onset: 88-25-1950LiicrrpxZwhvulcd of urinary tract (17 sources)Kidney stone; Translations: [Calculus of kidney]Onset: 07-18-2022 EpisodicChronic kidney disease (6 sources)Chronic kidney disease stage 4; Translations: [Chronic kidney disease, stage 4 (severe)]Onset: 49-78-6635PsygfkiLuweicq kidney disease (2 sources)Chronic kidney disease; Translations: [Chronic kidney disease, stage 3b (CMS-HCC)]Onset: 66-70-5460Rvhwvdovqrxm of device; implant or graft (6 sources)Displacement of nephrostomy tube; Translations: [Displacement of nephrostomy catheter, initial encounter]Onset: 44-11-1008JrqtoyhnVvvbaucuppish of surgical procedures or medical care (2 sources)Complication of external stoma of urinary tract; Translations: [Other complication of incontinent external stoma of urinary tract]Onset: 07-25-2022 EpisodicCongestive heart failure; nonhypertensive (1 source)Unspecified diastolic (congestive) heart failure; Translations: [UNSPECIFIED DIASTOLIC HEART FAILURE]Onset: 43-48-3526OhystemRvqvvcvj atherosclerosis and other heart disease (9 sources)Atherosclerotic heart disease of platinum coronary artery without angina pectoris; Translations: [Coronary arteriosclerosis]Onset: 07-20-2022 60-15-6989MdwjfypGnqrahnbll and other anemia (2 sources)Anemia, unspecified; Translations: [ANEMIA UNSPECIFIED]Onset: 81-30-6627TxcbunziVkakszbe mellitus with complications (3 sources)Type 2 diabetes mellitus in obese; Translations: [Type 2 diabetes mellitus with other specified complication]Onset: 05-97-9970LhswkohHvthyfyi mellitus without complication (6 sources)Insulin treated type 2 diabetes mellitus; Translations: [Type 2 diabetes mellitus without complications]Onset: 74-94-2807WhzyobmSbdpbzkb mellitus without complication (2 sources)Other abnormal glucose; Translations: [Hyperglycemia, unspecified] Onset: 40-43-0193GhyzqyhtSkrxdusa of white blood cells (3 sources)Leukocytosis; Translations: [Elevated white blood cell count, unspecified]Onset: 30-45-8550GuvczqjImksasdpi of lipid metabolism (3 sources)Pure hypercholesterolemia, unspecified; Translations: [Mixed hyperlipidemia]Onset: 09-83-7893LpzmoyhZvyofginq hypertension (7 sources)Hypertensive disorder; Translations: [Essential (primary) hypertension]Onset: 38-33-0193DofgftdFutbbmjm; including migraine (2 sources)Other complicated headache syndrome; Translations: [Headache]Onset: 94-11-6839LxpznxheWjuhyunw; including migraine (1 source)Headache; including migraine; Translations: [Headache, unspecified] Onset: 14-74-4607Kuiklhzndjrf with complications and secondary hypertension (6 sources)Hypertensive renal disease; Translations: [Hypertensive chronic kidney disease with stage 1 throughstage 4 chronic kidney disease, or unspecified chronic kidney disease]Onset: 29-79-7021EmsgemkEzdx disorders (4 sources)Depressive disorder; Translations: [Depression]Onset: 07-18-2022 ChronicNephritis; nephrosis; renal sclerosis (5 sources)Atrophy of left kidney; Translations: [Atrophy of kidney (terminal)] Onset: 10-12-6586IiqwkisEezsufuonkf deficiencies (1 source)Vitamin D deficiency, unspecified; Translations: [VITAMIN D DEFICIENCY UNSPECIFIED]Onset: 03-04-3204MhzzzgjCkfxjvfbe or stenosis of precerebral arteries (4 sources)Occlusion and stenosis of bilateral carotid arteries; Translations: [Bilateral stenosis of carotid arteries]Onset: 709156-60-3666PzsqjdsRayhj aftercare (3 sources)Patient encounter status; Translations: [retirement (current) use of non-steroidal anti-inflammatories (NSAID)]Onset: 05-33-3511FstrvwdlOtttt and ill-defined heart disease (2 sources)Mural thrombus of left ventricle; Translations: [Intracardiac thrombosis, not elsewhere classified]39-08-6545BrhdtqzLpqxq and ill-defined heart disease (4 sources)Intracardiac thrombosis, not elsewhere classified; Translations: [Intracardiac thrombosis, not elsewhere classified]Onset: 76-30-8710UvpufvrCgbyt circulatory disease (3 sources)H/O: heart disorder; Translations: [Personal history of other diseases of the circulatory system]Onset: 80-71-3481MlsccjipKmvww lower respiratory disease (2 sources)Other forms of dyspnea; Translations: [Other forms of dyspnea]Onset: 42-12-6678CyjeghgpAghlr nervous system disorders (1 source)Neuropathy; Translations: [Polyneuropathy, unspecified]ChronicOther nutritional; endocrine; and metabolic disorders (1 source)Obesity; Translations: [Obesity, unspecified]ChronicOther nutritional; endocrine; and metabolic disorders (2 sources)Obesity, unspecified; Translations: [OBESITY UNSPECIFIED]Onset: 36-65-4036CrcqvbbKwzyw nutritional; endocrine; and metabolic disorders (1 source)Morbid (severe) obesity due to excess calories; Translations: [MORBID SEVERE OBES D/T EXCESS JENARO]Onset: 00-80-9042JloceseTuczd nutritional; endocrine; and metabolic disorders (1 source)Body mass index (BMI) 40.0-44.9, adult; Translations: [BODY MASS INDEX BMI 40.0-44.9 ADULT]Onset: 57-63-7913LawvabeJfxnr screening for suspected conditions (not mental disorders or infectious disease) (4 sources)Encounter for screening for malignant neoplasm of rectum; Translations: [Other specified abnormal findings of blood chemistry]Onset: 577067-96-3978DbbcwofkSgoxl upper respiratory infections (1 source)Sinusitis; Translations: [Chronic infection of sinus NOS]Chronic Residual codes; unclassified (1 source)Absent kidney; Translations: [Acquired absence of kidney]Episodic Residual codes; unclassified (2 sources)Acquired absence of kidney; Translations: [ACQUIRED ABSENCE OF KIDNEY]Onset: 00-81-1312IknabeusPpxdhsrf codes; unclassified (2 sources)Other specified postprocedural states; Translations: [Other specified postprocedural states]Onset: 84-15-1595CubfrjbkPwoexjkifv (except in labor) (3 sources)Acute kidney injury due to sepsis; Translations: [Sepsis, unspecified organism]Onset: 16-87-1348PoannkogAwvkyeu disorders (4 sources)Hypothyroidism; Translations: [Hypothyroidism, unspecified]Onset: 67-90-9323VevhzvsQonztrclsobn (1 source)CONTACT W/AND (SUSP) EXPOS COVID-19; Translations: [CONTACT W/AND (SUSP) EXPOS COVID-19]Onset: 63-11-1920Flccmauaaalc (1 source)PAIN LEFT EYEOnset: 08-03-2024 Past or Other Problems Problem ClassificationProblemDateDocumented DateEpisodic/ChronicAbdominal pain (6 sources)Left flank pain; Translations: [Unspecified abdominal pain]Onset: 17-97-2006LnrlnivxPmbwu and electrolyte disorders (10 sources)Metabolic acidosis; Translations: [Acidosis]Onset: 07-20-2022 EpisodicMalaise and fatigue (5 sources)Other fatigue; Translations: [OTHER FATIGUE]Onset: 15-08-9831Acrhuosv Other aftercare (1 source)manager terminal (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; 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]Onset: 62-83-1263HwusgaaxFhtvz aftercare (1 source)Other manager terminal (current) drug therapy; Translations: [OTH MOTORCYCLE REPAIRER CURRENT DRUG THERAPY]Onset: 74-92-1780NshxmnhjCedmr aftercare (1 source)manager terminal (current) use of oral hypoglycemic drugs; Translations: [ASSISTED USE ORAL HYPOGLYCEMIC DX]Onset: 90-50-2697DzokrpcpZbvh-; endo-; and myocarditis; cardiomyopathy (except that caused by tuberculosis or sexually transmitted disease) (2 sources)Acute and subacute infective endocarditis; Translations: [Acute and subacute infective endocarditis]Onset: 67-47-2959PjqwlfhnIjgorwq tract infections (6 sources)Acute pyelonephritis; Translations: [Acute pyelonephritis]Onset: 37-26-0564Oprtnwgu Results Test NameValueInterpretationReference RangeFacilityOffice Visiton 09-11-2025 Follow-up [id number] Asa Thompson Jyotsna 1970 F Date Provider Department [place] 09/11/2025 [id number], ADAM EDDIE [facility] Family History Problem Relation Age of Onset Coronary artery disease Father Other Father Family Status - Relation Status Age at Father Level of Service:78230 MS OFFICE/OUTPATIENT ESTABLISHED MOD MDM 30 MIN Reason for Visit and Comments: Follow-up [456756] - Patient is here today for a follow up admission for NSTEMI. Patient states she feels good. Patient denies chest pain, palpitations/racing heart, edema, dizziness/lightheaded, fatigue. Patient has question about blood clot on her heart and if its dissolved. Hypertension [538449] Shortness of Breath [250209] - SOB/YE with walkingNormalUniversJoint Township District Memorial HospitalBasi metabolic 2000 panelon 51-76-9095Eikwd gap [Moles/Vol]16 mmol/L10 - 20 mmol/[facility] HospitalCalcium [Mass/Vol]8.9 mg/dL 8.6 - 10.6 mg/dLUnAshtabula County Medical CenterChloride [Moles/Vol]98 mmol/L98 - 107 mmol/[facility] HospitalCO2 [Moles/Vol]20 mmol/LLow21 - 32 mmol/[facility] HospitalCreatinine [Mass/Vol]1.93 mg/dLHigh0.50 - 1.05 mg/dLUnAshtabula County Medical CenterGFR/1.73 sq M.predicted among non- blacks MDRD (S/P/Bld) [Vol rate/Area]31 mL/min/{1.73_m2}Low- PINFUniversIndiana University Health Bloomington HospitalGlucose [Mass/Vol]317 mg/hYPnrj91 - 99 mg/dLUnAshtabula County Medical CenterInterpretation and review of laboratory resultsAbnoRiverview Health InstitutePotassium [Moles/Vol]4.3 mmol/L3.5 - 5.3 mmol/L [facility] HospitalSodium [Moles/Vol]130 mmol/SBem820 - 145 mmol/L [facility] HospitalUrea nitrogen [Mass/Vol]21 mg/dL6 - 23 mg/dL [facility] HospitalUnAshtabula County Medical CenterAnion gap [Moles/Vol]16 mmol/AUnmrsa84-14SupvoxbbufTuscarawas Hospital Comment on above:Performed By: #### 2341-6 #### HEAVEN Goyal ([id number]) [facility] ([facility]) [id number] [place] [address] 24590Evoasaw [Mass/Vol]8.9 mg/dLNormal8.6-10.6UnTuscarawas HospitalComment on above:Performed By: #### 2341-6 #### HEAVEN Goyal ([id number]) [facility] ([facility]) [id number] [place] [address] 72060Phbkxlzy [Moles/Vol]98 mmol/PFktycr02-130UwgqswbkddTuscarawas HospitalComment on above:Performed By: #### 2341-6 #### HEAVEN Goyal ([id number]) [facility] ([facility]) [address] [place] [address] 29930EZ7 [Moles/Vol]20 mmol/CLpp22-49ZiusmabkodTuscarawas HospitalComment on above:Result Comment: Bicarbonate results may be falsely elevated when Lactate Dehydrogenase (LDH) concentrations exceed 2,000 U/L due to a temporary reagent manufacturing issue. If significantly elevated LDH levels are suspected, interpret bicarbonate results with caution, correlate with the patient's clinical status, and consider confirming CO2 values using a blood gas analyzer.Performed By: #### 2341-6 #### HEAVEN Goyal ([id number]) [facility] ([facility]) [address] [place] [address] 48102Bufocapowb [Mass/Vol]1.93 mg/dLHigh0.50-1.05UnTuscarawas HospitalComment on above:Performed By: #### 2341-6 #### HEAVEN Goyal ([id number]) [facility] ([facility]) [address] [place], [place] [address]Yyetxrvxfh filtration rate31 mL/min/1.73m*2Low>60UnTuscarawas HospitalComment on above:Result Comment: Calculations of estimated GFR are performed using the 2020 CKD-EPI Study Refit equation without the race variable for the IDMS-Traceable creatinine methods. https://jasn.asnjournals.org/content/early//ASN.0787524692Idagqgyju By: #### 2341-6 #### HEAVEN Goyal ([id number]) [facility] ([facility]) [id number] [place] [address] 24652Xmmancw [Mass/Vol]317 mg/uMWqvj71-32MmesbwwvinTuscarawas HospitalComment on above:Performed By: #### 2341-6 #### HEAVEN Goyal ([id number]) [facility] ([facility]) [address] [place] [address] 31815Bjohixvor [Moles/Vol]4.3 mmol/LNormal3.5-5.3[facility] HospitalComment on above:Performed By: #### 2341-6 #### HEAVEN Goyal ([id number]) [facility] ([facility]) [address] [place] [address] 00871Ytnblu [Moles/Vol]130 mmol/AVmd313-401FycxrloebgTuscarawas HospitalComment on above:Performed By: #### 2341-6 #### HEAVEN Goyal ([id number]) [facility] ([facility]) [id number] [place] [address] 90489Qspw nitrogen [Mass/Vol]21 mg/dLNormal6-23UnTuscarawas HospitalComment on above:Performed By: #### 2341-6 #### HEAVEN Goyal ([id number]) [facility] ([facility]) [address] [place] [address]11[address]GHU W Auto Differential panel (Bld)on 00-13-4580Eorkrsclris distribution width (RBC) [Ratio]12.7 %11.5 - 14.5 %[facility] HospitalHematocrit (Bld) [Volume fraction]28.6 %Low36.0 - 46.0 %[facility] HospitalHemoglobin (Bld) [Mass/Vol]9.4 g/dLLow12.0 - 16.0 g/dL [facility] HospitalImputnam county memorial hospital granulocytes (Bld) [#/Vol]0.45 10*3/uL [facility] HospitalImputnam county memorial hospital granulocytes/100 WBC (Bld)3.7 %High0.0 - 0.9 %[facility] HospitalH (RBC) [Entitic mass]27.9 pg26.0 - 34.0 pgUnSouthview Medical CenterHC (RBC) [Mass/Vol]32.9 g/dL32.0 - 36.0 g/dLAdams County HospitalV (RBC) [Entitic vol]85 fL80 - 100 fLUniversIndiana University Health Bloomington HospitalPlatelets (Bld) [#/Vol]526 10*3/uLHigh [facility] HospitalRBC (Bld) [#/Vol]3.37 10*6/uLLowGreen Cross HospitalWBC (Bld) [#/Vol]12.0 10*3/uLOhio State Harding HospitalUnAshtabula County Medical CenterErythrocyte distribution width (RBC) [Ratio]12.7 %Hjfaqd41.5-14.5UnTuscarawas HospitalComment on above:Order Comment: The previously reported component Neutrophils % is [...] no longer being reported.The previously reported component AbsoluteMonocytes is no longer being reported.The previously reported component Absolute Eosinophils is no longer being reported.The previously reported component Absolute Basophils is no longer being reported.Performed By: #### 2341-6 #### HEAVEN Goyal ([id number]) [facility] ([facility]) [address] [place], [place] [address]Hematocrit (Bld) [Volume fraction]28.6 %Low36.0-46.0 [facility] HospitalComment on above:Order Comment: The previously reported component Neutrophils % is no longer being reported.The previously reported component Lymphocytes % is no longer being reported.The previously reported component Monocytes % is no longer being reported.The previously reported component Eosinophils % is no longer being reported.The previously reported component Basophils % is no longer being reported.The previ ously reported component Absolute Neutrophils is no longer being reported.The previously reported component Absolute Lymphocytes is no longer being reported.The previously reported component AbsoluteMonocytes is no longer being reported.The previously reported component Absolute Eosinophils is no longer being reported.The previously reported component Absolute Basophils is no longer being reported.Performed By: #### 2341-6 #### HEAVEN Goyal ([id number]) [facility] ([facility]) [address] [place], [place] [address]Lwazfdjpix (Bld) [Mass/Vol]9.4 g/dLLow12.0-16.0UnTuscarawas HospitalComment on above:Order Comment: The previously reported component Neutrophils % is [...] no longer being reported.The previously reported component AbsoluteMonocytes is no longer being reported.The previously reported component Absolute Eosinophils is no longer being reported.The previously reported component Absolute Basophils is no longer being reported.Performed By: #### 2341-6 #### HEAVEN Goyal ([id number]) [facility] ([facility]) [address] [place], [place] [address]Ppkptezm granulocytes (Bld) [#/Vol]0.45 x10*3/uLNormal 0.00-0.70UnTuscarawas HospitalComment on above:Order Comment: The previously reported component Neutrophils % is [...] no longer being reported.The previously reported component AbsoluteMonocytes is no longer being reported.The previously reported component Absolute Eosinophils is no longer being reported.The previously reported component Absolute Basophils is no longer being reported.Performed By: #### 2341-6 #### HEAVEN Goyal ([id number]) [facility] ([facility]) [address] [place], [place] [address]Rfnzqcbx granulocytes/100 WBC (Bld)3.7 %High0.0-0.9[facility] HospitalComment on above:Order Comment: The previously reported component Neutrophils % is no longer being reported.The previously reported component Lymphocytes % is no longer being reported.The previously reported component Monocytes % is no longer being reported.The previously reported component Eosinophils % is no longer being reported.The previously reported component Basophils % is no longer being reported.The previ ously reported component Absolute Neutrophils is no longer being reported.The previously reported component Absolute Lymphocytes is no longer being reported.The previously reported component AbsoluteMonocytes is no longer being reported.The previously reported component Absolute Eosinophils is no longer being reported.The previously reported component Absolute Basophils is no longer being reported.Result Comment: Immature Granulocyte Count (IG) includes promyelocytes, myelocytes and metamyelocytes but does not include bands. Percent differential counts (%) should be interpreted in the context of the absolute cell counts (cells/UL).Performed By: #### 2341-6 #### HEAVEN Goyal ([id number]) [facility] ([facility]) [address] [place], [place] [address]JME (RBC) [Entitic mass]27.9 pgMucwep60.0-34.0UnTuscarawas HospitalComment on above:Order Comment: The previously reported component Neutrophils % is [...] no longer being reported.The previously reported component AbsoluteMonocytes is no longer being reported.The previously reported component Absolute Eosinophils is no longer being reported.The previously reported component Absolute Basophils is no longer being reported.Performed By: #### 2341-6 #### HEAVEN Goyal ([id number]) [facility] ([facility]) [address] [place] [address]XOIT (RBC) [Mass/Vol]32.9 g/mJWhlyxs96.0-36.0[facility] HospitalComment on above:Order Comment: The previously reported component Neutrophils % is [...] no longer being reported.The previously reported component AbsoluteMonocytes is no longer being reported.The previously reported component Absolute Eosinophils is no longer being reported.The previously reported component Absolute Basophils is no longer being reported.Performed By: #### 2341-6 #### HEAVEN Goyal ([id number]) [facility] ([facility]) [address] [place] [address]HYG (RBC) [Entitic vol]85 yMGvlegd97-620NkdculnkrrPremier Health Miami Valley HospitalComment on above:Order Comment: The previously reported component Neutrophils % is [...] no longer being reported.The previously reported component AbsoluteMonocytes is no longer being reported.The previously reported component Absolute Eosinophils is no longer being reported.The previously reported component Absolute Basophils is no longer being reported.Performed By: #### 2341-6 #### HEAVEN Goyal ([id number]) [facility] ([facility]) [address] [place], [place] [address]Vdqbwpvjc RBC/100 WBC (Bld) [Ratio]0.0 /100 WBCsNormal0.0-0.0 [facility] HospitalComment on above:Order Comment: The previously reported component Neutrophils % is no longer being reported.The previously reported component Lymphocytes % is no longer being reported.The previously reported component Monocytes % is no longer being reported.The previously reported component Eosinophils % is no longer being reported.The previously reported component Basophils % is no longer being reported.The previ ously reported component Absolute Neutrophils is no longer being reported.The previously reported component Absolute Lymphocytes is no longer being reported.The previously reported component AbsoluteMonocytes is no longer being reported.The previously reported component Absolute Eosinophils is no longer being reported.The previously reported component Absolute Basophils is no longer being reported.Performed By: #### 2341-6 #### HEAVEN Goyal ([id number]) [facility] ([facility]) [address] [place], [place] [address]Bbdrnphxc (Bld) [#/Vol]526 x10*3/wUFntz056-546RnkdlstcybTuscarawas HospitalComment on above:Order Comment: The previously reported component Neutrophils % is [...] no longer being reported.The previously reported component AbsoluteMonocytes is no longer being reported.The previously reported component Absolute Eosinophils is no longer being reported.The previously reported component Absolute Basophils is no longer being reported.Performed By: #### 2341-6 #### HEAVEN PANDAMOTZER L ([id number]) [facility] ([facility]) [address] [place], [place] [address]AOH (Bld) [#/Vol]3.37 x10*6/uLLow4.00-5.20UnTuscarawas HospitalComment on above:Order Comment: The previously reported component Neutrophils % is [...] no longer being reported.The previously reported component AbsoluteMonocytes is no longer being reported.The previously reported component Absolute Eosinophils is no longer being reported.The previously reported component Absolute Basophils is no longer being reported.Performed By: #### 2341-6 #### HEAVEN Goyal ([id number]) [facility] ([facility]) [address] [place] [address]LCF (Bld) [#/Vol]12.0 x10*3/uLHigh4.4-11.3[facility] HospitalComment on above:Order Comment: The previously reported component Neutrophils % is [...] no longer being reported.The previously reported component AbsoluteMonocytes is no longer being reported.The previously reported component Absolute Eosinophils is no longer being reported.The previously reported component Absolute Basophils is no longer being reported.Performed By: #### 2341-6 #### HEAVEN Goyal ([id number]) [facility] ([facility]) [address] [place] [address]UNX 12 leadOrdered By: Moisés Goldberg on 65-36-1079Reodey Rate 92BPTrinity Health System East Campus Work Phone: [phone] Fwxmwxgh400 [facility] Work Phone: [phone] Dftiz272 [facility] Work Phone: [phone] Xwciw08zfpvqNvvenyfobiHolzer Medical Center – [facility] Work Phone: [phone] Nngifoey65 [facility] Work Phone: [phone] Oatdfksg182 [facility] Work Phone: [phone] Calculation(Bazett)529 [facility] Work Phone: [phone] Utoyyxmmsy547 [facility] Work Phone: [phone] Vilo22ncbxtkgVhjyblmegbGeorgetown Behavioral Hospital Work Phone: [phone] Mcod236rrwqdvaMjtoxjgzviGeorgetown Behavioral Hospital Work Phone: [phone] Rlybmg111 [facility] Work Phone: [phone] Jzxb85TWATssamtlffqTrinity Health System [facility] Campus Work Phone: [phone] Work Phone: [phone] 12 leadon 97-05-2279FOIDTzcczetxdmWyandot Memorial Hospital Work Phone: [phone] 12-LEADon 85-75-1653FPD 12-LEADVentricular Rate 95 Atrial Rate 95 P-R Interval 186 QRS Duration 102 Q-T Interval 366 QTC Calculation(Bazett) 459 P Pigeon 26 R Pigeon 65 T Pigeon 127 QRS Count 16 Q Onset 217 P Onset 124 P Offset 173 T Offset 400 QTC Fredericia 426 Diagnosis Normal sinus rhythm Inferior infarct , 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) Lateral injury pattern ACUTE [place] / STEMI Consider right ventricular involvement in acute inferior infarct Abnormal ECG When compared with ECG of 01-SEP-2025 06:28, Serial changes of Anteroseptal infarct Present Confirmed by Reid Gastelum ([id number]) on 09/05/2025 12:39:18 PMNNew Ulm Medical CenterGlucose Test strip manual (Bld) [Mass/Vol]on 49-06-7053Nuemzbr [Mass/Vol]255 mg/tIFgoa09 - 99 mg/dLGreen Cross Hospital Interpretation and review of laboratory resultsAbnoMercy Health Kings Mills HospitalGlucose [Mass/Vol]255 mg/qEPbdc45-05 [facility] HospitalComment on above:Performed By: #### 2341-6 #### HEAVEN Goyal ([id number]) [facility] ([facility]) [id number] [place] [address] 61244Gdggdni [Mass/Vol]277 mg/dQKwmv97 - 99 mg/dLUnAshtabula County Medical CenterInterpretation and review of laboratory resultsAbWood County HospitalGlucose [Mass/Vol]277 mg/mNFcam80-78GwwjorbrjkTuscarawas HospitalComment on above:Performed By: #### 2341-6 #### HEAVEN Goyal ([id number]) [facility] ([facility]) [id number] [place] [address] 05297Ifszxyc function 2000 panelon 66-17-5686Guieoyf BCP dye [Mass/Vol]3.5 g/dL3.4 - 5.0 g/dLUnAshtabula County Medical CenterALP [Catalytic activity/Vol]140 U/LHigh33 - 110 U/[facility] HospitalALT With P-5'-P [Catalytic activity/Vol]12 U/L7 - 45 U/[facility] AST With P-5'-P [Catalytic activity/Vol]14 U/L9 - 39 U/[facility] HospitalBilirubin [Mass/Vol]0.9 mg/dL0.0 - 1.2 mg/dLUnAshtabula County Medical CenterBilirubin.direct [Mass/Vol]0.1 mg/dL0.0 - 0.3 mg/dLUnAshtabula County Medical CenterInterpretation and review of laboratory resultsAbnoalUniHolzer Medical Center – JacksonProtein [Mass/Vol]7.5 g/dL6.4 - 8.2 g/dLUnAshtabula County Medical CenterUnAshtabula County Medical CenterAlbumin BCP dye [Mass/Vol]3.5 g/dLNormal3.4-5.0UnTuscarawas Hospital Comment on above:Performed By: #### 2341-6 #### HEAVEN Goyal ([id number]) [facility] ([facility]) [id number] [place] [address] 10890EFI [Catalytic activity/Vol]140 U/AFejt52-596LzrkwnvhdpTuscarawas HospitalComment on above:Performed By: #### 2341-6 #### HEAVEN Goyal ([id number]) [facility] ([facility]) [address] [place] [address] 39403ZBB With P-5'-P [Catalytic activity/Vol]12 U/LNormal7-45 [facility] HospitalComment on above:Result Comment: Patients treated with Sulfasalazine may generate falsely decreased results for ALT.Performed By: #### 2341-6 #### HEAVEN Goyal ([id number]) [facility] ([facility]) [address] [place] [address] 88229JVX With P-5'-P [Catalytic activity/Vol]14 U/LNormal9-39 [facility] HospitalComment on above:Performed By: #### 2341-6 #### HEAVEN Goyal ([id number]) [facility] ([facility]) [address] [place] [address] 58121Fahfxqdxw [Mass/Vol]0.9 mg/dLNormal0.0-1.2UnTuscarawas HospitalComment on above:Performed By: #### 2341-6 #### HEAVEN Goyal ([id number]) [facility] ([facility]) [address] [place] [address] 82397Emfpgdebs.direct [Mass/Vol]0.1 mg/dLNormal0.0-0.3UnTuscarawas HospitalComment on above:Performed By: #### 2341-6 #### HEAVEN Goyal ([id number]) [facility] ([facility]) [address] [place] [address] 31775Srhofvz [Mass/Vol]7.5 g/dLNormal6.4-8.2UnTuscarawas HospitalComment on above:Performed By: #### 2341-6 #### HEAVEN Goyal ([id number]) [facility] ([facility]) [address] [place] [address] 11271Rlasdhyljo - Hematology and Cell countson 21-32-4155Wikauhtmm RBC/100 WBC (Bld) [Ratio]0.0 %0.0 - 0.0 %[facility] Magnesiumon 64-95-2499Saorbvmsl [Mass/Vol]2.28 mg/dL1.60 - 2.40 mg/dLUnAshtabula County Medical CenterMagnesium [Mass/Vol]2.28 mg/dLNormal1.60-2.40[facility] HospitalComment on above:Performed By: #### 2341-6 #### HEAVEN Goyal ([id number]) [facility] ([facility]) [address] [place], [place] [address]Nscwhrhid [Mass/Vol]on 91-51-9085Pyvfqvqajndstq and review of laboratory resultsNormalUniversIndiana University Health Bloomington HospitalUnAshtabula County Medical CenterManual differential performed Ql (Bld)on 97-37-4720Fqtl form neutrophils (Bld) [#/Vol]0.00 10*3/[facility] CampusBand form neutrophils/100 WBC (Bld)0.0 %0.0 - 5.0 %[facility] Basophils (Bld) [#/Vol]0.10 10*3/[facility] Basophils/100 WBC (Bld)0.8 %0.0 - 2.0 %[facility] Cross HospitalBlasts Manual cnt (Bld) [#/Vol]0.00UnAshtabula County Medical CenterBlasts/100 WBC (Bld)0.0 %0.0 - 0.0 %[facility] HospitalCells Counted Total (Bld) [#]117 {cells}[facility] HospitalEosinophils (Bld) [#/Vol]0.10 10*3/UnAshtabula County Medical CenterEosinophils/100 WBC (Bld)0.8 %0.0 - 6.0 %[facility] HospitalLymphocytes (Bld) [#/Vol]1.24 10*3/[facility] HospitalLymphocytes/100 WBC (Bld)10.3 %13.0 - 44.0 % [facility] HospitalMetamyelocytes (Bld) [#/Vol]0.00 10*3/[facility] HospitalMetamyelocytes/100 WBC (Bld)0.0 %0.0 - 0.0 % [facility] HospitalMonocytes (Bld) [#/Vol]0.72 10*3/[facility] CampusMonocytes/100 WBC (Bld)6.0 %2.0 - 10.0 %[facility] HospitalMyocytes (Bld) [#/Vol]0.11 10*3/[facility] CampusMyelocytes/100 WBC (Bld)0.9 %0.0 - 0.0 %[facility] HospitalNeutrophils (Bld) [#/Vol]9.13 10*3/[facility] Medical CenterPlasma cells (Bld) [#/Vol]0.00 10*3/[facility] Plasma cells/100 WBC Manual cnt (Bld)0.0 %0.00 - 0.00 %[facility] HospitalPromyocytes (Bld) [#/Vol]0.00 10*3/[facility] CampusProelocytes/100 WBC (Bld)0.0 %0.0 - 0.0 %[facility] HospitalRB morphology finding Nom (Bld)No significant RBC morphology present [facility] HospitalSegmented neutrophils (Bld) [#/Vol]9.13 10*3/[facility] SystemSegmented neutrophils/100 WBC (Bld)76.1 % 40.0 - 80.0 %[facility] Cross HospitalVartrihealth [facility] hospital lymphocytes (Bld) [#/Vol] 0.61 10*3/[facility] Medical CenterVartrihealth mccullough-[facility]de memorial hospital lymphocytes/100 WBC (Bld)5.1 %0.0 - 2.0 %[facility] Cross HospitalW other Manual cnt (Bld) [#/Vol]0.00x10*3/[facility] CampusW other/100 WBC (Bld)0.0 %[facility] HospitalBand form neutrophils (Bld) [#/Vol]0.00 x10*3/Normal0.00-0.70UnTuscarawas HospitalComment on above:Performed By: #### 2341-6 #### HEAVEN Goyal ([id number]) [facility] ([facility]) [address] [place], [place] [address]Cfqf form neutrophils/100 WBC (Bld)0.0 %Normal0.0-5.0 [facility] HospitalComment on above:Performed By: #### 2341-6 #### HEAVEN Goyal ([id number]) [facility] ([facility]) [address] [place], [place] [address]Uxghgxrmr (Bld) [#/Vol]0.10 x10*3/uLNormal0.00-0.10[facility] HospitalComment on above:Performed By: #### 2341-6 #### HEAVEN Goyal (39088) [facility] ([facility]) [address] [place], [place] [address]Ovxzwereg/100 WBC (Bld)0.8 %Normal0.0-2.0UnTuscarawas HospitalComment on above:Performed By: #### 2341-6 #### HEAVEN Goyal (73623) [facility] ([facility]) [address] [place], [place] [address]Ofmwid Manual cnt (Bld) [#/Vol]0.00 x10*3/uLNormal0.00-0.00 [facility] HospitalComment on above:Performed By: #### 2341-6 #### HEAVEN Goyal (56248) [facility] ([facility]) [address] [place], [place] [address]Udwyvi/100 WBC (Bld)0.0 %Normal0.0-0.0UnTuscarawas HospitalComment on above:Performed By: #### 2341-6 #### HEAVEN Goyal ([id number]) [facility] ([facility]) [address] [place] [address] 90772Bosdu Counted Total (Bld) [#]117NormalUniversGalion Community HospitalComment on above:Performed By: #### 2341-6 #### HEAVEN Goyal (60596) [facility] ([facility]) [address] [place] [address] 60911Hittfcdujhq (Bld) [#/Vol]0.10 x10*3/uLNormal0.00-0.70 [facility] HospitalComment on above:Performed By: #### 2341-6 #### HEAVEN Goyal (43895) [facility] ([facility]) [address] [place], [place] [address]Lqqeaoooxkk/100 WBC (Bld)0.8 %Normal0.0-6.0UnTuscarawas HospitalComment on above:Performed By: #### 2341-6 #### HEAVEN Goyal ([id number]) [facility] ([facility]) [address] [place], [place] [address]Lnulkjunjrb (Bld) [#/Vol]1.24 x10*3/uLNormal1.20-4.80 [facility] HospitalComment on above:Performed By: #### 2341-6 #### HEAVEN Goyal ([id number]) [facility] ([facility]) [address] [place] [address] 22350Ffkxssmecpe/100 WBC (Bld)10.3 %Vtvmgl78.0-44.0UnTuscarawas HospitalComment on above:Performed By: #### 2341-6 #### HEAVEN Goyal (47182) [facility] ([facility]) [address] [place], [place] [address]Yqrkugfhbeqhbo (Bld) [#/Vol]0.00 x10*3/uLNormal0.00-0.00 [facility] HospitalComment on above:Performed By: #### 2341-6 #### HEAVEN Goyal ([id number]) [facility] ([facility]) [address] [place], [place] [address]Qnapeamdynqhqz/100 WBC (Bld)0.0 %Normal0.0-0.0UnTuscarawas HospitalComment on above:Performed By: #### 2341-6 #### HEAVEN Goyal (52140) [facility] ([facility]) [address] [place], [place] [address]Bgqfjfccc (Bld) [#/Vol]0.72 x10*3/uLNormal0.10-1.00UnTuscarawas HospitalComment on above:Performed By: #### 2341-6 #### HEAVEN Goyal ([id number]) [facility] ([facility]) [address] [place], [place] [address]Guztbtewp/100 WBC (Bld)6.0 %Normal2.0-10.0UnTuscarawas HospitalComment on above:Performed By: #### 2341-6 #### HEAVEN Goyal (86887) [facility] ([facility]) [address] [place], [place] [address]Xdvxllholg (Bld) [#/Vol]0.11 x10*3/uLNormal0.00-0.00 [facility] HospitalComment on above:Performed By: #### 2341-6 #### HEAVEN Goyal (48170) [facility] ([facility]) [address] [place], [place] [address]Dgahlyoxrd/100 WBC (Bld)0.9 %Normal0.0-0.0UnTuscarawas HospitalComment on above:Performed By: #### 2341-6 #### HEAVEN Goyal (64965) [facility] ([facility]) [address] [place], [place] [address]Yuokwnenvmh (Bld) [#/Vol]9.13 x10*3/uLHigh1.20-7.70UnTuscarawas HospitalComment on above:Performed By: #### 2341-6 #### HEAVEN Goyal (26745) [facility] ([facility]) [address] [place], [place] [address]Fwzgxhvap RBC/100 WBC (Bld) [Ratio]0.0 %Normal0.0-0.0 [facility] HospitalComment on above:Performed By: #### 2341-6 #### HEAVEN Goyal (63295) [facility] ([facility]) [address] [place] [address] 04346Naeccb cells (Bld) [#/Vol]0.00 x10*3/uLNormal0.00-0.00 [facility] HospitalComment on above:Performed By: #### 2341-6 #### HEAVEN Goyal (05891) [facility] ([facility]) [address] [place] [address] 86195Iufnvb cells/100 WBC Manual cnt (Bld)0.0 %Normal0.00-0.00 [facility] HospitalComment on above:Performed By: #### 2341-6 #### HEAVEN Goyal (84016) [facility] ([facility]) [address] [place] [address] 128[address]Oflzivuawkumm (Bld) [#/Vol]0.00 x10*3/uLNormal0.00-0.00 [facility] HospitalComment on above:Performed By: #### 2341-6 #### HEAVEN Goyal (03681) [facility] ([facility]) [address] [place] [address] 94238Fgmvparbeugjn/100 WBC (Bld)0.0 %Normal0.0-0.0UnTuscarawas HospitalComment on above:Performed By: #### 2341-6 #### HEAVEN Goyal (04508) [facility] ([facility]) [address] [place] [address] 36339UXI morphology finding Nom (Bld)No significant RBC morphology presentNormalUniKindred Hospital DaytonComment on above: Performed By: #### 2341-6 #### HEAVEN Goyal (95908) [facility] ([facility]) [address] [place] [address] 95451Raartvznt neutrophils (Bld) [#/Vol]9.13 x10*3/uLHigh1.20-7.00 [facility] HospitalComment on above:Performed By: #### 2341-6 #### HEAVEN Goyal ([id number]) [facility] ([facility]) [address] [place] [address] 14075Zgrzolvrm neutrophils/100 WBC (Bld)76.1 %Nsiunp22.0-80.0 [facility] HospitalComment on above:Result Comment: Percent differential counts (%) should be interpreted in the context of the absolute cell counts (cells/uL).Performed By: #### 2341-6 #### HEAVEN Goyal (32994) [facility] ([facility]) [address] [place] [address] 56672Trbehgh lymphocytes (Bld) [#/Vol]0.61 x10*3/uLHigh0.00-0.50 [facility] HospitalComment on above:Performed By: #### 2341-6 #### HEAVEN Goyal (26915) [facility] ([facility]) [address] [place] [address] 42913Pokkvfg lymphocytes/100 WBC (Bld)5.1 %Normal0.0-2.0UnTuscarawas HospitalComment on above:Performed By: #### 2341-6 #### HEAVEN Goyal ([id number]) [facility] ([facility]) [address] [place] [address] 75275QSN other Manual cnt (Bld) [#/Vol]0.00 x10*3/uLNormal [facility] HospitalComment on above:Performed By: #### 2341-6 #### HEAVEN Goyal (79487) [facility] ([facility]) [address] [place] [address] 81103MBI other/100 WBC (Bld)0.0 %NormalUnTuscarawas HospitalComment on above:Performed By: #### 2341-6 #### HEAVEN Goyal (55413) [facility] ([facility]) [address] [place] [address] 55298Vo Panel Informationon 83-61-9802Jiqzuprogoxbyn and review of laboratory resultsAbnoHolzer Medical Center – JacksonUnAshtabula County Medical CenterPT and aPTT panel Coag (PPP)on 24-08-4323gBMJ Coag (PPP) [Time]32 s [facility] HospitalINR Coag (PPP) [Relative time]1.5 {INR}High0.9 - 1.1[facility] HospitalInterpretation and review of laboratory resultsAbnormalUniHolzer Medical Center – JacksonPT Coag (PPP) [Time]16.2 Wilson HealthUnAshtabula County Medical CenterUnAshtabula County Medical CenteraPTT Coag (PPP) [Time]32 cPjnvse81-69CtopdjxlqcTuscarawas HospitalComment on above:Order Comment: The APTT is no longer used for monitoring Unfractionated Heparin Therapy. For monitoring Heparin Therapy, use the Heparin Assay.Performed By: #### 2341-6 #### HEAVEN Goyal (73863) [facility] ([facility]) [address] [place] [address] 10552HNW Coag (PPP) [Relative time]1.5High0.9-1.1UnTuscarawas HospitalComment on above:Order Comment: The APTT is no longer used for monitoring Unfractionated Heparin Therapy. For monitoring Heparin Therapy, use the Heparin Assay.Performed By: #### 2341-6 #### HEAVEN Goyal (84562) [facility] ([facility]) [address] [place] [address] 35841ZC Coag (PPP) [Time]16.2 sHigh9.8-12.4[facility] HospitalComment on above:Order Comment: The APTT is no longer used for monitoring Unfractionated Heparin Therapy. For monitoring Heparin Therapy, use the Heparin Assay.Performed By: #### 2341-6 #### HEAVEN Goyal (47525) [facility] ([facility]) [address] [place] [address] 35179Amjubcfxymx 45-29-4995Cavrhkpvh [Mass/Vol]2.5 mg/dLNormal 2.5-4.9[facility] HospitalComment on above:Performed By: #### 2341-6 #### HEAVEN Goyal (91271) [facility] ([facility]) [address] [place] [address] 33899Nxdsuylsr [Mass/Vol]on 25-61-5961Jmchhbfhomzccs and review of laboratory resultsNoHolzer Medical Center – JacksonUnAshtabula County Medical CenterPhosphoruson 13-06-1179Wnfkjtsme [Mass/Vol]2.5 mg/dL2.5 - 4.9 mg/dL [facility] HospitalBasic metabolic 2000 panelon 15-64-1862Hgfjz gap [Moles/Vol]14 mmol/L10 - 20 mmol/[facility] HospitalCalcium [Mass/Vol]8.5 mg/dLLow8.6 - 10.6 mg/dLUnAshtabula County Medical CenterChloride [Moles/Vol]100 mmol/L98 - 107 mmol/[facility] HospitalCO2 [Moles/Vol]23 mmol/L21 - 32 mmol/[facility] HospitalCreatinine [Mass/Vol]2.03 mg/dLHigh0.50 - 1.05 mg/dLUnAshtabula County Medical Center GFR/1.73 sq M.predicted among non-blacks MDRD (S/P/Bld) [Vol rate/Area]29 mL/min/{1.73_m2}Low- PINFUniHolzer Medical Center – JacksonGlucose [Mass/Vol]224 mg/eERqoj95 - 99 mg/dLUnAshtabula County Medical CenterInterpretation and review of laboratory resultsAbnoHolzer Medical Center – JacksonPotassium [Moles/Vol]4.1 mmol/L3.5 - 5.3 mmol/[facility] HospitalSodium [Moles/Vol]133 mmol/EBro137 - 145 mmol/[facility] HospitalUrea nitrogen [Mass/Vol]30 mg/dLHigh6 - 23 mg/dLUnFostoria City HospitalAnion gap [Moles/Vol]14 mmol/PWykaiq85-32 [facility] HospitalComment on above:Performed By: #### 2341-6 #### HEAVEN Goyal ([id number]) [facility] ([facility]) [address] [place], [place] [address]Imxzhhr [Mass/Vol]8.5 mg/dLLow8.6-10.6UnTuscarawas HospitalComment on above:Performed By: #### 2341-6 #### HEAVEN Goyal (81097) [facility] ([facility]) [address] [place], [place] [address]Lsnohloh [Moles/Vol]100 mmol/FJrolbu85-725RngjwzikzvTuscarawas HospitalComment on above:Performed By: #### 2341-6 #### HEAVEN Goyal (90488) [facility] ([facility]) [address] [place], [place] [address]VH7 [Moles/Vol]23 mmol/XWwtesl00-80JcaoyjkhqvPremier Health Miami Valley HospitalComment on above:Result Comment: Bicarbonate results may be falsely elevated when Lactate Dehydrogenase (LDH) concentrations exceed 2,000 U/L due to a temporary reagent manufacturing issue. If significantly elevated LDH levels are suspected, interpret bicarbonate results with caution, correlate with the patient's clinical status, and consider confirming CO2 values using a blood gas analyzer.Performed By: #### 2341-6 #### HEAVEN Goyal ([id number]) [facility] ([facility]) [address] [place], [place] [address]Drtulrtfyb [Mass/Vol]2.03 mg/dLHigh0.50-1.05[facility] HospitalComment on above:Performed By: #### 2341-6 #### HEAVEN Goyal (15681) [facility] ([facility]) [address] [place], [place] [address]Yifzgkkzvy filtration rate29 mL/min/1.73m*2Low>60UnTuscarawas HospitalComment on above:Result Comment: Calculations of estimated GFR are performed using the 2020 CKD-EPI Study Refit equation without the race variable for the IDMS-Traceable creatinine methods. https://jasn.asnjournals.org/content//ASN.7606581186Ztegrzkto By: #### 2341-6 #### HEAVEN Goyal ([id number]) [facility] ([facility]) [address] [place], [place] [address]Oloqslc [Mass/Vol]224 mg/xKCkcw13-69YaedopopnwTuscarawas HospitalComment on above:Performed By: #### 2341-6 #### HEAVEN Goyal (56875) [facility] ([facility]) [address] [place], [place] [address]Pdkjkxioh [Moles/Vol]4.1 mmol/LNormal3.5-5.3UnTuscarawas HospitalComment on above:Performed By: #### 2341-6 #### HEAVEN Goyal (98906) [facility] ([facility]) [address] [place], [place] [address]Cirwbm [Moles/Vol]133 mmol/BNhe252-809YqcuspwterTuscarawas HospitalComment on above:Performed By: #### 2341-6 #### HEAVEN Goyal (79692) [facility] ([facility]) [id number] [place] [address]Ofvz nitrogen [Mass/Vol]30 mg/dLHigh6-23UnTuscarawas HospitalComment on above:Performed By: #### 2341-6 #### HEAVEN Goyal ([id number]) [facility] ([facility]) [id number] [place] [address] [id number] W Auto Differential panel (Bld)on [id number] distribution width (RBC) [Ratio]12.9 %11.5 - 14.5 %[facility] HospitalHematocrit (Bld) [Volume fraction]29.5 %Low36.0 - 46.0 %[facility] HospitalHemoglobin (Bld) [Mass/Vol]9.5 g/dLLow12.0 - 16.0 g/dL [facility] HospitalImputnam [facility] memorial hospital granulocytes (Bld) [#/Vol]0.28 10*3/uL [facility] granulocytes/100 WBC (Bld)2.8 %High0.0 - 0.9 %[facility] (RBC) [Entitic mass]27.8 pg26.0 - 34.0 pgUnKindred Hospital [facility] (RBC) [Mass/Vol]32.2 g/dL32.0 - 36.0 g/dLUnAshtabula County Medical CenterMCV (RBC) [Entitic vol]86 fL80 - 100 [facility] HospitalPlatelets (Bld) [#/Vol]442 10*3/[facility] CampusR[facility] (d) [#/Vol]3.42 10*6/[facility] CenterWBC (Bld) [#/Vol]9.9 10*3/[facility] CampusUnAshtabula County Medical CenterErythrocyte distribution width (RBC) [Ratio]12.9 %Normal 11.5-14.5[facility] HospitalComment on above:Order Comment: The previously reported component Neutrophils % is [...] no longer being reported.The previously reported component AbsoluteMonocytes is no longer being reported.The previously reported component Absolute Eosinophils is no longer being reported.The previously reported component Absolute Basophils is no longer being reported.Performed By: #### 2341-6 #### HEAVEN Goyal ([id number]) [facility] ([facility]) [address] [place] [address] [id number] (Bld) [Volume fraction]29.5 %Low36.0-46.0 [facility] HospitalComment on above:Order Comment: The previously reported component Neutrophils % is no longer being reported.The previously reported component Lymphocytes % is no longer being reported.The previously reported component Monocytes % is no longer being reported.The previously reported component Eosinophils % is no longer being reported.The previously reported component Basophils % is no longer being reported.The previ ously reported component Absolute Neutrophils is no longer being reported.The previously reported component Absolute Lymphocytes is no longer being reported.The previously reported component AbsoluteMonocytes is no longer being reported.The previously reported component Absolute Eosinophils is no longer being reported.The previously reported component Absolute Basophils is no longer being reported.Performed By: #### 2341-6 #### HEAVEN Goyal ([id number]) [facility] ([facility]) [address] [place], [place] [address]Guekeznzmp (Bld) [Mass/Vol]9.5 g/dLLow12.0-16.0[facility] HospitalComment on above:Order Comment: The previously reported component Neutrophils % is [...] no longer being reported.The previously reported component AbsoluteMonocytes is no longer being reported.The previously reported component Absolute Eosinophils is no longer being reported.The previously reported component Absolute Basophils is no longer being reported.Performed By: #### 2341-6 #### HEAVEN Goyal ([id number]) [facility] ([facility]) [address] [place], [place] [address]Uzqazaee granulocytes (Bld) [#/Vol]0.28 x10*3/uLNormal 0.00-0.70UnTuscarawas HospitalComment on above:Order Comment: The previously reported component Neutrophils % is [...] no longer being reported.The previously reported component AbsoluteMonocytes is no longer being reported.The previously reported component Absolute Eosinophils is no longer being reported.The previously reported component Absolute Basophils is no longer being reported.Performed By: #### 2341-6 #### HEAVEN Goyal ([id number]) [facility] ([facility]) [address] [place], [place] [address]Njuotlzg granulocytes/100 WBC (Bld)2.8 %High0.0-0.9UnTuscarawas HospitalComment on above:Order Comment: The previously reported component Neutrophils % is no longer being reported.The previously reported component Lymphocytes % is no longer being reported.The previously reported component Monocytes % is no longer being reported.The previously reported component Eosinophils % is no longer being reported.The previously reported component Basophils % is no longer being reported.The previ ously reported component Absolute Neutrophils is no longer being reported.The previously reported component Absolute Lymphocytes is no longer being reported.The previously reported component AbsoluteMonocytes is no longer being reported.The previously reported component Absolute Eosinophils is no longer being reported.The previously reported component Absolute Basophils is no longer being reported.Result Comment: Immature Granulocyte Count (IG) includes promyelocytes, myelocytes and metamyelocytes but does not include bands. Percent differential counts (%) should be interpreted in the context of the absolute cell counts (cells/UL).Performed By: #### 2341-6 #### HEAVEN Goyal ([id number]) [facility] ([facility]) [address] [place], [place] [address]MCH (RBC) [Entitic mass]27.8 kmUkqiis59.0-34.0[facility] HospitalComment on above:Order Comment: The previously reported component Neutrophils % is [...] no longer being reported.The previously reported component AbsoluteMonocytes is no longer being reported.The previously reported component Absolute Eosinophils is no longer being reported.The previously reported component Absolute Basophils is no longer being reported.Performed By: #### 2341-6 #### HEAVEN Goyal ([id number]) [facility] ([facility]) [id number] [place], [place] [address]MCHC (RBC) [Mass/Vol]32.2 g/wGLtbopp03.0-36.0[facility] HospitalComment on above:Order Comment: The previously reported component Neutrophils % is [...] no longer being reported.The previously reported component AbsoluteMonocytes is no longer being reported.The previously reported component Absolute Eosinophils is no longer being reported.The previously reported component Absolute Basophils is no longer being reported.Performed By: #### 2341-6 #### HEAVEN Goyal ([id number]) [facility] ([facility]) [address] [place] [address]YSS (RBC) [Entitic vol]86 pNPcajpm37-263PorhwwtktqPremier Health Miami Valley HospitalComment on above:Order Comment: The previously reported component Neutrophils % is [...] no longer being reported.The previously reported component AbsoluteMonocytes is no longer being reported.The previously reported component Absolute Eosinophils is no longer being reported.The previously reported component Absolute Basophils is no longer being reported.Performed By: #### 2341-6 #### HEAVEN Goyal ([id number]) [facility] ([facility]) [address] [place], [place] [address]Egrctqeax RBC/100 WBC (Bld) [Ratio]0.0 /100 WBCsNormal0.0-0.0 [facility] HospitalComment on above:Order Comment: The previously reported component Neutrophils % is no longer being reported.The previously reported component Lymphocytes % is no longer being reported.The previously reported component Monocytes % is no longer being reported.The previously reported component Eosinophils % is no longer being reported.The previously reported component Basophils % is no longer being reported.The previ ously reported component Absolute Neutrophils is no longer being reported.The previously reported component Absolute Lymphocytes is no longer being reported.The previously reported component AbsoluteMonocytes is no longer being reported.The previously reported component Absolute Eosinophils is no longer being reported.The previously reported component Absolute Basophils is no longer being reported.Performed By: #### 2341-6 #### HEAVEN Goyal (62956) [facility] ([facility]) [address] [place], [place] [address]Xhlnlqcdm (Bld) [#/Vol]442 x10*3/kUUlfnac244-920GwqaibxbprTuscarawas HospitalComment on above:Order Comment: The previously reported component Neutrophils % is [...] no longer being reported.The previously reported component AbsoluteMonocytes is no longer being reported.The previously reported component Absolute Eosinophils is no longer being reported.The previously reported component Absolute Basophils is no longer being reported.Performed By: #### 2341-6 #### HEAVEN HOPKINSTZER Jyotsna ([id number]) [facility] ([facility]) [address] [place], [place] [address]HTD (Bld) [#/Vol]3.42 x10*6/uLLow4.00-5.20UnTuscarawas HospitalComment on above:Order Comment: The previously reported component Neutrophils % is [...] no longer being reported.The previously reported component AbsoluteMonocytes is no longer being reported.The previously reported component Absolute Eosinophils is no longer being reported.The previously reported component Absolute Basophils is no longer being reported.Performed By: #### 2341-6 #### HEAVEN PANDAMOTZER L ([id number]) [facility] ([facility]) [address] [place], [place] [address]CTA (Bld) [#/Vol]9.9 x10*3/uLNormal4.4-11.3[facility] HospitalComment on above:Order Comment: The previously reported component Neutrophils % is [...] no longer being reported.The previously reported component AbsoluteMonocytes is no longer being reported.The previously reported component Absolute Eosinophils is no longer being reported.The previously reported component Absolute Basophils is no longer being reported.Performed By: #### 2341-6 #### HEAVEN Goyal (19703) [facility] ([facility]) [address] [place] [address]Vcoiion Test strip manual (Bld) [Mass/Vol]on 09-02-2025 Glucose [Mass/Vol]280 mg/nAZowb21 - 99 mg/dLUnAshtabula County Medical Center Interpretation and review of laboratory resultsAbnormalUDayton VA Medical CenterUnAshtabula County Medical CenterGlucose [Mass/Vol]280 mg/qZNriw27-86 [facility] HospitalComment on above:Performed By: #### 2341-6 #### HEAVEN Goyal ([id number]) [facility] ([facility]) [address] [place] [address]Scnuznf [Mass/Vol]263 mg/aWWnkv68 - 99 mg/dLUnAshtabula County Medical CenterInterpretation and review of laboratory resultsAbWood County HospitalGlucose [Mass/Vol]263 mg/nYLhox26-67RfupzeldfnTuscarawas HospitalComment on above:Performed By: #### 2341-6 #### HEAVEN Goyal ([id number]) [facility] ([facility]) [address] [place] [address]Ymtunhj [Mass/Vol]257 mg/wBDwzy87 - 99 mg/dLUnAshtabula County Medical CenterInterpretation and review of laboratory resultsAbWood County HospitalGlucose [Mass/Vol]257 mg/oEZxql67-66PzhvqbqhofTuscarawas HospitalComment on above:Performed By: #### 2341-6 #### HEAVEN Goyal (85407) [facility] ([facility]) [address] [place] [address]Inaamcc [Mass/Vol]209 mg/hENvvh27 - 99 mg/dLGreen Cross HospitalInterpretation and review of laboratory resultsAbWayne HealthCare Main CampusUnAshtabula County Medical CenterGlucose [Mass/Vol]209 mg/rQHhws89-27HkywwyjngfTuscarawas HospitalComment on above:Performed By: #### 2341-6 #### HEAVEN Goyal ([id number]) [facility] ([facility]) [address] [place] [address]Lubkbgz Assayon 83-91-7729Vlopawd unfractionated Chromogenic method Qn (PPP)0.3See Comment Below for Therapeutic Ranges IU/mLUnAshtabula County Medical CenterHeparin unfractionated Chromogenic method Qn (PPP)on 42-79-4316Srpfgpewlunmum and review of laboratory resultsNormalUniHolzer Medical Center – JacksonHesaint joseph hospital.unfractionatedon 46-83-1631Kuwywgl unfractionated Chromogenic method Qn (PPP)0.3 IU/mLNormalSee Comment Below for Therapeutic RangesUnTuscarawas HospitalComment on above:Order Comment: The therapeutic reference range for UFH may be either 0.3-0.6 IU/mL or 0.3-0.7 IU/mLbased on the clinical setting for anticoagulant therapy and the associated nomogram used. For Heparin dosing guidelines based on clinical scenario and Heparin Assay results, please refer to local Pharmacy and the [facility] Guidelines for Anticoagulation Therapy available on the [facility] intranet at: [email or web address] By: #### 2341-6 #### HEAVEN Goyal ([id number]) [facility] ([facility]) [address] [place] [address]Buhobdn function 2000 panelon 26-67-0926Fvgtaxc BCP dye [Mass/Vol]3.3 g/dLLow3.4 - 5.0 g/dLUnAshtabula County Medical CenterALP [Catalytic activity/Vol]122 U/LHigh33 - 110 U/[facility] ALT With P-5'-P [Catalytic activity/Vol]13 U/L7 - 45 U/[facility] HospitalAST With P-5'-P [Catalytic activity/Vol]13 U/L9 - 39 U/[facility] HospitalBilirubin [Mass/Vol]0.7 mg/dL0.0 - 1.2 mg/dLGreen Cross HospitalBilirubin.direct [Mass/Vol]0.1 mg/dL0.0 - 0.3 mg/dL [facility] HospitalInterpretation and review of laboratory results AbnormalGreen Cross HospitalProtein [Mass/Vol]7.0 g/dL6.4 - 8.2 g/dLGreen Cross HospitalUnAshtabula County Medical CenterAlbumin BCP dye [Mass/Vol]3.3 g/dLLow3.4-5.0[facility] HospitalComment on above:Performed By: #### 2341-6 #### HEAVEN Goyal ([id number]) [facility] ([facility]) [id number] [place] [address]KWR [Catalytic activity/Vol]122 U/MTzbc85-900WbhvbpijdtTuscarawas HospitalComment on above:Performed By: #### 2341-6 #### HEAVEN Goyal ([id number]) [facility] ([facility]) [address] [place] [address]DTB With P-5'-P [Catalytic activity/Vol]13 U/LNormal7-45 [facility] HospitalComment on above:Result Comment: Patients treated with Sulfasalazine may generate falsely decreased results for ALT.Performed By: #### 2341-6 #### HEAVEN Goyal (05300) [facility] ([facility]) [address] [place], [place] [address]QDO With P-5'-P [Catalytic activity/Vol]13 U/LNormal9-39 [facility] HospitalComment on above:Performed By: #### 2341-6 #### HEAVEN Goyal (54861) [facility] ([facility]) [address] [place], [place] [address]Tlfshucqc [Mass/Vol]0.7 mg/dLNormal0.0-1.2UnTuscarawas HospitalComment on above:Performed By: #### 2341-6 #### HEAVEN Goyal (78155) [facility] ([facility]) [address] [place], [place] [address]Oypswzjoj.direct [Mass/Vol]0.1 mg/dLNormal0.0-0.3UnTuscarawas HospitalComment on above:Performed By: #### 2341-6 #### HEAVEN Goyal (32558) [facility] ([facility]) [address] [place], [place] [address]Yjotvgc [Mass/Vol]7.0 g/dLNormal6.4-8.2UnTuscarawas HospitalComment on above:Performed By: #### 2341-6 #### HEAVEN Goyal (23950) [facility] ([facility]) [address] [place] [address]Itoszaxsea - Hematology and Cell countson 46-53-7753Nnwmnuxij RBC/100 WBC (Bld) [Ratio]0.0 %Green Cross HospitalLipid 1996 panel on 96-08-1427Ehhwodaxipl [Mass/Vol]174 mg/dL0 - 199 mg/dLUnAshtabula County Medical CenterCholesterol in HDL [Mass/Vol]39.4 mg/dLUnAshtabula County Medical CenterCholesterol in LDL [Mass/Vol]72 mg/dLNINF - 99 mg/dLUnAshtabula County Medical CenterCholesterol in VLDL [Mass/Vol]63 mg/dLHigh0 - 40 mg/dL [facility] Cross HospitalCholesterol.total/Cholesterol in HDL [Mass ratio]4.4 {ratio}[facility] Cross HospitalInterpretation and review of laboratory resultsAbnormalUniversIndiana University Health Bloomington HospitalNon HDL Cholesterol 135 mg/dL0 - 149 mg/dLUnAshtabula County Medical CenterTriglyceride [Mass/Vol] 314 mg/dLHigh0 - 149 mg/dLUniversity Hospitals of St. Anthony Hospital – Oklahoma CityCholesterol [Mass/Vol]174 mg/dLNormal0-199Prem[facility] HospitalComment on above:Result Comment: Age Desirable Borderline High High 0-19 Y 0 - 169 170 [...] should be performed immediately prior to Metamizole dosing.Performed By: #### 2341-6 #### HEAVEN Goyal ([id number]) [facility] ([facility]) [address] [place] [address]Phokfaswpra in HDL [Mass/Vol]39.4 mg/dLNormalUniKindred Hospital DaytonComment on above:Result Comment: Age Very Low Low Normal High 0-19 Y < 35 < 40 40-45 ---- 20-24 Y ---- < 40 >45 ---- >24 Y ---- < 40 40-60 >60Performed By: #### 2341-6 #### HEAVEN Goyal (86605) [facility] ([facility]) [address] [place] [address]Osyfjryrumr in LDL [Mass/Vol]72 mg/dLNormal<=99Prem[facility] HospitalComment on above:Result Comment: Near Borderline AGE Desirable Optimal High High Very High 0-19 Y 0 - 109 --- 110-129 >/= 130 ---- 20-24 Y 0 - 119 --- 120-159 >/= 160 ---- >24 Y 0 - 99 100-129 130-159 160-189 >/=190 LDL Cholesterol is calculated using the Friedewald equation.Performed By: #### 2341-6 #### HEAVEN Goyal (59027) [facility] ([facility]) [address] [place], [place] [address]Qykzfsccyyq in VLDL [Mass/Vol]63 mg/dLHigh0-40[facility] HospitalComment on above:Performed By: #### 2341-6 #### HEAVEN Goyal ([id number]) [facility] ([facility]) [address] [place] [address]DUTMUOIXXWF/HDL RATIO4.4NormalUniKindred Hospital DaytonComment on above:Result Comment: Ref Values Desirable < 3.4 High Risk > 5.0Performed By: #### 2341-6 #### HEAVEN Goyal ([id number]) [facility] ([facility]) [address] [place], [place] [address]QPG HDL EGUEMOAWNDJ994 mg/dLNormal0-149[facility] HospitalComment on above:Result Comment: Age Desirable Borderline High High Very High 0-19 Y 0 - 119 120 - 144 >/= 145 >/= 160 20-24 Y 0 - 149 150 - 189 >/= 190 ---- >24 Y 30 mg/dL above LDL Cholesterol goalPerformed By: #### 2341-6 #### HEAVEN Goyal ([id number]) [facility] ([facility]) [address] [place], [place] [address]Inhownaraydh [Mass/Vol]314 mg/dLHigh0-149Prem[facility] HospitalComment on above:Result Comment: Age Desirable Borderline High Very High SEX:B mg/dL mg/dL mg/dL mg/dL <=14D 86-277 ---- ---- ---- 15D-365D 55-277 ---- ---- ---- 1Y-9Y 0-74 75-99 >=100 ---- 10Y-19Y 0-89 90-129 >=130 ---- 20Y-24Y 0-114 115-149 >=150 ---- >= 25Y 0-149 150-199 200-499 >=500 Venipuncture immediately after or during the administration of Metamizole may lead to falsely low results. Testing should be performed immediately prior to Metamizole dosing.Performed By: #### 2341-6 #### HEAVEN Goyal ([id number]) [facility] ([facility]) [address] [place], [place] [address]Velqvzefsjm 43-92-0024Ceiigbxmb [Mass/Vol]2.43 mg/dLHigh1.60 - 2.40 mg/dLUnAshtabula County Medical CenterMagnesium [Mass/Vol]2.43 mg/dLHigh 1.60-2.40[facility] HospitalComment on above:Performed By: #### 2341-6 #### HEAVEN Goyal (86801) [facility] ([facility]) [address] [place], [place] [address]Ggkkouqob [Mass/Vol]on 69-26-3455Wrcbrfkcgurlhm and review of laboratory resultsAbnormalUniHolzer Medical Center – JacksonUnAshtabula County Medical CenterManual differential performed Ql (Bld)on 59-75-4096Blox form neutrophils (Bld) [#/Vol]0.00 10*3/[facility] CampusBand form neutrophils/100 WBC (Bld)0.0 %0.0 - 5.0 %[facility] Basophils (Bld) [#/Vol]0.08 10*3/[facility] Basophils/100 WBC (Bld)0.8 %0.0 - 2.0 %[facility] Cross HospitalBlasts Manual cnt (Bld) [#/Vol]0.00UnAshtabula County Medical CenterBlasts/100 WBC (Bld)0.0 %0.0 - 0.0 %[facility] Cross HospitalCells Counted Total (Bld) [#]120 {cells}[facility] Cross HospitalEosinophils (Bld) [#/Vol]0.34 10*3/[facility] CampusEosinophils/100 WBC (Bld)3.4 %0.0 - 6.0 %[facility] HospitalLymphocytes (Bld) [#/Vol]1.07 10*3/uLLow [facility] HospitalLymphocytes/100 WBC (Bld)10.8 %13.0 - 44.0 % [facility] HospitalMetamyelocytes (Bld) [#/Vol]0.25 10*3/[facility] HospitalMetamyelocytes/100 WBC (Bld)2.5 %0.0 - 0.0 % [facility] HospitalMonocytes (Bld) [#/Vol]0.82 10*3/[facility] CampusMonocytes/100 WBC (Bld)8.3 %2.0 - 10.0 %[facility] HospitalMyelocytes (Bld) [#/Vol]0.00 10*3/[facility] CampusMyelocytes/100 WBC (Bld)0.0 %0.0 - 0.0 %[facility] HospitalNeutrophils (Bld) [#/Vol]7.35 10*3/[facility] Plasma cells (Bld) [#/Vol]0.00 10*3/[facility] CampusPlasma cells/100 WBC Manual cnt (Bld)0.0 %0.00 - 0.00 %[facility] HospitalPromyocytes (Bld) [#/Vol]0.00 10*3/[facility] CampusProelocytes/100 WBC (Bld)0.0 %0.0 - 0.0 %[facility] Cross HospitalRB morphology finding Nom (Bld)No significant RBC morphology present [facility] HospitalSegmented neutrophils (Bld) [#/Vol]7.35 10*3/[facility] Health SystemSegmented neutrophils/100 WBC (Bld)74.2 % 40.0 - 80.0 %[facility] Cross HospitalVartrihealth m[facility] lymphocytes (Bld) [#/Vol] 0.00 10*3/[facility] CampusVariant lymphocytes/100 WBC (Bld) 0.0 %0.0 - 2.0 %[facility] Cross HospitalW other Manual cnt (Bld) [#/Vol]0.00x10*3/[facility] CampusWBC other/100 WBC (Bld)0.0 % [facility] HospitalBand form neutrophils (Bld) [#/Vol]0.00 x10*3/Normal0.00-0.70[facility] HospitalComment on above:Performed By: #### 2341-6 #### HEAVEN Goyal (32333) [facility] ([facility]) [address] [place], [place] [address]Nvzb form neutrophils/100 WBC (Bld)0.0 %Normal0.0-5.0 [facility] HospitalComment on above:Performed By: #### 2341-6 #### HEAVEN Goyal (09543) [facility] ([facility]) [address] [place] [address] 15[address]Dmjrrykyz (Bld) [#/Vol]0.08 x10*3/uLNormal0.00-0.10[facility] HospitalComment on above:Performed By: #### 2341-6 #### HEAVEN Goyal (14520) [facility] ([facility]) [address] [place], [place] [address]Vndubsyjw/100 WBC (Bld)0.8 %Normal0.0-2.0[facility] HospitalComment on above:Performed By: #### 2341-6 #### HEAVEN Goyal (34079) [facility] ([facility]) [address] [place], [place] [address]Kixdxt Manual cnt (Bld) [#/Vol]0.00 x10*3/uLNormal0.00-0.00 [facility] HospitalComment on above:Performed By: #### 2341-6 #### HEAVEN Goyal (10654) [facility] ([facility]) [address] [place], [place] [address]Gnegrt/100 WBC (Bld)0.0 %Normal0.0-0.0UnTuscarawas HospitalComment on above:Performed By: #### 2341-6 #### HEAVEN Goyal (66963) [facility] ([facility]) [address] [place] [address]18[address]Vhdiv Counted Total (Bld) [#]120NormalUniversGalion Community HospitalComment on above:Performed By: #### 2341-6 #### HEAVEN Goyal (21339) [facility] ([facility]) [address] [place], [place] [address]Prthiuowlkl (Bld) [#/Vol]0.34 x10*3/uLNormal0.00-0.70 [facility] HospitalComment on above:Performed By: #### 2341-6 #### HEAVEN Goyal (06104) [facility] ([facility]) [address] [place], [place] [address]Htenqggcxdk/100 WBC (Bld)3.4 %Normal0.0-6.0[facility] HospitalComment on above:Performed By: #### 2341-6 #### HEAVEN Goyal (55699) [facility] ([facility]) [address] [place] [address]Dvzkopxomff (Bld) [#/Vol]1.07 x10*3/uLLow1.20-4.80UnTuscarawas HospitalComment on above:Performed By: #### 2341-6 #### HEAVEN Goyal (39374) [facility] ([facility]) [address] [place], [place] [address]Xtlcsytmpae/100 WBC (Bld)10.8 %Nugejj42.0-44.0UnTuscarawas HospitalComment on above:Performed By: #### 2341-6 #### HEAVEN Goyal (38477) [facility] ([facility]) [address] [place], [place] [address]Elzxieoacnadnx (Bld) [#/Vol]0.25 x10*3/uLNormal0.00-0.00 [facility] HospitalComment on above:Performed By: #### 2341-6 #### HEAVEN PHILIP L (36558) [facility] ([facility]) [address] [place], [place] [address]Nfcxxnfmzyuhwb/100 WBC (Bld)2.5 %Normal0.0-0.0UnTuscarawas HospitalComment on above:Performed By: #### 2341-6 #### HEAVEN Goyal (94248) [facility] ([facility] [place]) [address] [place], [place] [address]Qwgeakuyo (Bld) [#/Vol]0.82 x10*3/uLNormal0.10-1.00UnTuscarawas HospitalComment on above:Performed By: #### 2341-6 #### HEAVEN Goyal ([id number]) [facility] ([facility]) [address] [place], [place] [address]Kqevckdcz/100 WBC (Bld)8.3 %Normal2.0-10.0UnTuscarawas HospitalComment on above:Performed By: #### 2341-6 #### HEAVEN Goyal ([id number]) [facility] ([facility]) [address] [place], [place] [address]Kbmmdfjlyu (Bld) [#/Vol]0.00 x10*3/uLNormal0.00-0.00 [facility] HospitalComment on above:Performed By: #### 2341-6 #### HEAVEN Goyla ([id number]) [facility] ([facility]) [id number] [place] [address] 08[address]Ibmrxrlhmj/100 WBC (Bld)0.0 %Normal0.0-0.0UnTuscarawas HospitalComment on above:Performed By: #### 2341-6 #### HEAVEN Goyal ([id number]) [facility] ([facility]) [address] [place], [place] [address]Gfipngcicyo (Bld) [#/Vol]7.35 x10*3/uLNormal1.20-7.70 [facility] HospitalComment on above:Performed By: #### 2341-6 #### HEAVEN Goyal ([id number]) [facility] ([facility]) [id number] [place] [address]Kpcvogheo RBC/100 WBC (Bld) [Ratio]0.0 %Normal0.0-0.0 [facility] HospitalComment on above:Performed By: #### 2341-6 #### HEAVEN Goyal ([id number]) [facility] ([facility]) [id number] [place] [address] 59[address]Ftnmjs cells (Bld) [#/Vol]0.00 x10*3/uLNormal0.00-0.00 [facility] HospitalComment on above:Performed By: #### 2341-6 #### HEAVEN Goyal ([id number]) [facility] ([facility]) [address] [place] [address] 26[address]Rpbzqc cells/100 WBC Manual cnt (Bld)0.0 %Normal0.00-0.00 [facility] HospitalComment on above:Performed By: #### 2341-6 #### HEAVEN Goyal (93831) [facility] ([facility]) [address] [place] [address] 277[address]Zdvtgrsewlobt (Bld) [#/Vol]0.00 x10*3/uLNormal0.00-0.00 [facility] HospitalComment on above:Performed By: #### 2341-6 #### HEAVEN Goyal ([id number]) [facility] ([facility]) [id number] [place] [address]66[address]Ytqcevdokbapg/100 WBC (Bld)0.0 %Normal0.0-0.0[facility] HospitalComment on above:Performed By: #### 2341-6 #### HEAVEN Goyal ([id number]) [facility] ([facility]) [address] [place] [address]47[address]SJK morphology finding Nom (Bld)No significant RBC morphology presentNormalUniKindred Hospital DaytonComment on above: Performed By: #### 2341-6 #### HEAVEN Goyal ([id number]) [facility] ([facility]) [address] [place] [address] 98309Ysnzkbcmr neutrophils (Bld) [#/Vol]7.35 x10*3/uLHigh1.20-7.00 [facility] HospitalComment on above:Performed By: #### 2341-6 #### HEAVEN Goyal ([id number]) [facility] ([facility]) [id number] [place] [address] 716[address]Bwbgjhfbs neutrophils/100 WBC (Bld)74.2 %Reskcn37.0-80.0 [facility] HospitalComment on above:Result Comment: Percent differential counts (%) should be interpreted in the context of the absolute cell counts (cells/uL).Performed By: #### 2341-6 #### HEAVEN Goyal (15776) [facility] ([facility]) [address] [place] [address] 18100Lrclesn lymphocytes (Bld) [#/Vol]0.00 x10*3/uLNormal0.00-0.50 [facility] HospitalComment on above:Performed By: #### 2341-6 #### HEAVEN Goyal (43513) [facility] ([facility]) [id number] [place] [address] 36864Tntskgt lymphocytes/100 WBC (Bld)0.0 %Normal0.0-2.0UnTuscarawas HospitalComment on above:Performed By: #### 2341-6 #### HEAVEN PHILIP L (64351) [facility] ([facility]) [address] [place] [address] 28553GCP other Manual cnt (Bld) [#/Vol]0.00 x10*3/uLNormal [facility] HospitalComment on above:Performed By: #### 2341-6 #### HEAVEN RESENDIZER L ([id number]) [facility] ([facility]) [id number] [place] [address] 67938KFO other/100 WBC (Bld)0.0 %NormalUnTuscarawas HospitalComment on above:Performed By: #### 2341-6 #### HEAVEN PHILIP L ([id number]) [facility] ([facility]) [address] [place] [address] 13691Hb Panel Informationon 27-27-4302Qsonicyauobwtn and review of laboratory resultsAbnoHolzer Medical Center – JacksonUnAshtabula County Medical CenterExtra TubeHold for add-ons.[facility] Work Phone: [facility] Work Phone: UnAshtabula County Medical CenterUnAshtabula County Medical CenterPT and aPTT panel Coag (PPP)on 10-94-1875iJLP Coag (PPP) [Time]45 s [facility] Park HospitalUnAshtabula County Medical CenterINR Coag (PPP) [Relative time]1.2 {INR}High 0.9 - 1.1[facility] Cross HospitalInterpretation and review of laboratory resultsAbTrinity Health System Twin City Medical CenterPT Coag (PPP) [Time] 12.9 CentervilleaPTT Coag (PPP) [Time]45 uZyhk32-15 [facility] HospitalComment on above:Order Comment: The APTT is no longer used for monitoring Unfractionated Heparin Therapy. For monitoring Heparin Therapy, use the Heparin Assay.Performed By: #### 2341-6 #### HEAVEN Goyal ([id number]) [facility] ([facility]) [address] [place] [address] 40394NOB Coag (PPP) [Relative time]1.2High0.9-1.1[facility] HospitalComment on above:Order Comment: The APTT is no longer used for monitoring Unfractionated Heparin Therapy. For monitoring Heparin Therapy, use the Heparin Assay.Performed By: #### 2341-6 #### HEAVEN Goyal ([id number]) [facility] ([facility]) [address] [place] [address] 53185TX Coag (PPP) [Time]12.9 sHigh9.8-12.4UnTuscarawas HospitalComment on above:Order Comment: The APTT is no longer used for monitoring Unfractionated Heparin Therapy. For monitoring Heparin Therapy, use the Heparin Assay.Performed By: #### 2341-6 #### HEAVEN Goyal (28560) [facility] ([facility]) [address] [place] [address], [place] [address]Puqjersrvfs 24-95-7555Mitqgodiq [Mass/Vol]2.7 mg/dLNormal 2.5-4.9UnTuscarawas HospitalComment on above:Performed By: #### 2341-6 #### HEAVEN Goyal (60330) [facility] ([facility]) [address] [place], [place] [address]Iaxqurpmy [Mass/Vol]on 96-43-3945Uqrbygfpnbcbvg and review of laboratory resultsNoHolzer Medical Center – JacksonUnAshtabula County Medical CenterPhosphoruson 87-67-0571Fahvyhkut [Mass/Vol]2.7 mg/dL2.5 - 4.9 mg/dL Green Cross HospitalRenal function 2000 panelon 95-59-7299Yxsmqvs BCP dye [Mass/Vol]3.3 g/dLLow3.4 - 5.0 g/dLUnAshtabula County Medical Center Anion gap [Moles/Vol]16 mmol/L10 - 20 mmol/[facility] Calcium [Mass/Vol]8.5 mg/dLLow8.6 - 10.6 mg/dLUnAshtabula County Medical Center Chloride [Moles/Vol]98 mmol/L98 - 107 mmol/[facility] HospitalCO2 [Moles/Vol]22 mmol/L21 - 32 mmol/[facility] HospitalCreatinine [Mass/Vol]1.96 mg/dLHigh0.50 - 1.05 mg/dLUnAshtabula County Medical Center GFR/1.73 sq M.predicted among non-blacks MDRD (S/P/Bld) [Vol rate/Area]30 mL/min/{1.73_m2}Low- PINFUniversIndiana University Health Bloomington HospitalGlucose [Mass/Vol]260 mg/yAQalo15 - 99 mg/dLUnAshtabula County Medical CenterInterpretation and review of laboratory resultsAbnoHolzer Medical Center – JacksonPhosphate [Mass/Vol]2.4 mg/dLLow2.5 - 4.9 mg/dLUnAshtabula County Medical CenterPotassium [Moles/Vol]4.6 mmol/L3.5 - 5.3 mmol/[facility] HospitalSodium [Moles/Vol]131 mmol/WKft280 - 145 mmol/LUnAshtabula County Medical CenterUrea nitrogen [Mass/Vol]26 mg/dLHigh6 - 23 mg/dLSelect Medical [facility] Clinic Rehabilitation Hospital, Edwin ShawAlbumin BCP dye [Mass/Vol]3.3 g/dLLow3.4-5.0 [facility] HospitalComment on above:Performed By: #### 2341-6 #### HEAVEN Goyal ([id number]) [facility] ([facility]) [id number] [place] [address] 37704Brhac gap [Moles/Vol]16 mmol/KNkoxiz23-72JgzajrarkcTuscarawas HospitalComment on above:Performed By: #### 2341-6 #### HEAVEN Goyal (37449) [facility] ([facility]) [address] [place] [address] 78147Ihdgdty [Mass/Vol]8.5 mg/dLLow8.6-10.6UnTuscarawas HospitalComment on above:Performed By: #### 2341-6 #### HEAVEN Goyal ([id number]) [facility] ([facility]) [address] [place] [address] 713[address]Lmzozugg [Moles/Vol]98 mmol/YBojfnp42-910TwwywlciwgTuscarawas HospitalComment on above:Performed By: #### 2341-6 #### HEAVEN Goyal ([id number]) [facility] ([facility]) [address] [place] [address]47[address]CQ6 [Moles/Vol]22 mmol/PMjvktx09-12VvvqfxzsliTuscarawas HospitalComment on above:Result Comment: Bicarbonate results may be falsely elevated when Lactate Dehydrogenase (LDH) concentrations exceed 2,000 U/L due to a temporary reagent manufacturing issue. If significantly elevated LDH levels are suspected, interpret bicarbonate results with caution, correlate with the patient's clinical status, and consider confirming CO2 values using a blood gas analyzer.Performed By: #### 2341-6 #### HEAVEN Goyal ([id number]) [facility] ([facility]) [address] [place] [address] 39[address]Cueotrxqhl [Mass/Vol]1.96 mg/dLHigh0.50-1.05UnTuscarawas HospitalComment on above:Performed By: #### 2341-6 #### HEAVEN Goyal (94931) [facility] ([facility]) [address] [place] [address] 323[address]Wgvshkhnkp filtration rate30 mL/min/1.73m*2Low>60UnTuscarawas HospitalComment on above:Result Comment: Calculations of estimated GFR are performed using the 2020 CKD-EPI Study Refit equation without the race variable for the IDMS-Traceable creatinine methods. https://jasn.asnjournals.org/content/early//ASN.4516756865Hbiocnerp By: #### 2341-6 #### HEAVEN Goyal ([id number]) [facility] ([facility]) [address] [place] [address] 060[address]Nwalyaf [Mass/Vol]260 mg/qGHgmu62-50AvvqoxjlzcTuscarawas HospitalComment on above:Performed By: #### 2341-6 #### HEAVEN Goyal (08005) [facility] ([facility]) [address] [place], [place] [address]Xhqkogoqi [Mass/Vol]2.4 mg/dLLow2.5-4.9UnTuscarawas HospitalComment on above:Performed By: #### 2341-6 #### HEAVEN Goyal (05364) [facility] ([facility]) [address] [place] [address] 601[address]Qglczzyqx [Moles/Vol]4.6 mmol/LNormal3.5-5.3UnTuscarawas HospitalComment on above:Performed By: #### 2341-6 #### HEAVEN Goyal (94103) [facility] ([facility]) [address] [place] [address] 21134Dzqwzg [Moles/Vol]131 mmol/KUbx838-970DbvqckbfszTuscarawas HospitalComment on above:Performed By: #### 2341-6 #### HEAVEN Goyal (23066) [facility] ([facility]) [address] [place], [place] [address]Ovny nitrogen [Mass/Vol]26 mg/dLHigh6-23UnTuscarawas HospitalComment on above:Performed By: #### 2341-6 #### HEAVEN Goyal (94983) [facility] ([facility]) [address] [place], [place] [address]Rpxtmvbw identified Cx Nom (U)Ordered By: Teodoro Riddle on 66-07-7337Xukcynflzeuzps and review of laboratory resultsAbTrinity Health System Twin City Medical CenterUnAshtabula County Medical CenterBasi metabolic 2000 panelon 84-18-3118Jpmfk gap [Moles/Vol]16 mmol/L10 - 20 mmol/[facility] HospitalCalcium [Mass/Vol]7.8 mg/dLLow8.6 - 10.6 mg/dLUnAshtabula County Medical CenterChloride [Moles/Vol]97 mmol/LLow98 - 107 mmol/[facility] HospitalCO2 [Moles/Vol]22 mmol/L21 - 32 mmol/[facility] HospitalCreatinine [Mass/Vol]3.01 mg/dLHigh0.50 - 1.05 mg/dLUnAshtabula County Medical CenterGFR/1.73 sq M.predicted among non-blacks MDRD (S/P/Bld) [Vol rate/Area]18 mL/min/{1.73_m2}Low- PINFUniHolzer Medical Center – Jackson Glucose [Mass/Vol]241 mg/zAGitk60 - 99 mg/dLUnAshtabula County Medical Center Interpretation and review of laboratory resultsAbnoHolzer Medical Center – JacksonPotassium [Moles/Vol]3.3 mmol/LLow3.5 - 5.3 mmol/[facility] HospitalSodium [Moles/Vol]132 mmol/VAah833 - 145 mmol/[facility] HospitalUrea nitrogen [Mass/Vol]51 mg/dLHigh6 - 23 mg/dLUnAshtabula County Medical CenterUnAshtabula County Medical CenterAnion gap [Moles/Vol]16 mmol/L Zwseam08-93DdjaaxpyqtTuscarawas HospitalComment on above: Performed By: #### 2341-6 #### HEAVEN Goyal ([id number]) [facility] ([facility]) [address] [place], [place] [address]Yiumqoa [Mass/Vol]7.8 mg/dLLow8.6-10.6[facility] HospitalComment on above:Performed By: #### 2341-6 #### HEAVEN RESENDIZER L ([id number]) [facility] ([facility]) [address] [place], [place] [address]Gxtyvkdu [Moles/Vol]97 mmol/UFhr37-331RtukguznzvTuscarawas HospitalComment on above:Performed By: #### 2341-6 #### HEAVEN PHILIP L ([id number]) [facility] ([facility]) [address] [place] [address] 34116MU2 [Moles/Vol]22 mmol/KXckjaw69-48OqdnfvyqziTuscarawas HospitalComment on above:Performed By: #### 2341-6 #### HEAVEN PHILIP L (13355) [facility] ([facility]) [address] [place] [address] 808[address]Ejgatmpzlp [Mass/Vol]3.01 mg/dLHigh0.50-1.05UnTuscarawas HospitalComment on above:Performed By: #### 2341-6 #### HEAVEN PHILIP L ([id number]) [facility] ([facility]) [address] [place] [address] 49145Ifdrkrebhx filtration rate18 mL/min/1.73m*2Low>60UnTuscarawas HospitalComment on above:Result Comment: Calculations of estimated GFR are performed using the 2020 CKD-EPI Study Refit equation without the race variable for the IDMS-Traceable creatinine methods. https://jasn.asnjournals.org/content/early//ASN.1221396136Njrknvcyn By: #### 2341-6 #### HEAVEN Goyal ([id number]) [facility] ([facility]) [address] [place], [place] [address]Vaxgjfp [Mass/Vol]241 mg/wHRrwq58-63WuwwvyhukhTuscarawas HospitalComment on above:Performed By: #### 2341-6 #### HEAVEN Goyal (28631) [facility] ([facility]) [address] [place] [address] 73049Apciwxgga [Moles/Vol]3.3 mmol/LLow3.5-5.3[facility] HospitalComment on above:Performed By: #### 2341-6 #### HEAVEN Goyal (49657) [facility] ([facility]) [address] [place] [address] 85179Mqrzpf [Moles/Vol]132 mmol/FScd725-435ManvbgdhctTuscarawas HospitalComment on above:Performed By: #### 2341-6 #### HEAVEN Goyal ([id number]) [facility] ([facility]) [address] [place] [address] 22556Ftgy nitrogen [Mass/Vol]51 mg/dLHigh6-23UnTuscarawas HospitalComment on above:Performed By: #### 2341-6 #### HEAVEN Goyal ([id number]) [facility] ([facility]) [address] [place] [address] 94366MVV W Auto Differential panel (Bld)on 62-06-6410Lbdfxbrts (Bld) [#/Vol]0.02 10*3/[facility] CampusBasophils/100 WBC (Bld)0.2 %0.0 - 2.0 %[facility] HospitalEosinophils (Bld) [#/Vol] 0.08 10*3/[facility] CampusEosinophils/100 WBC (Bld)0.7 %0.0 - 6.0 %[facility] HospitalErythrocyte distribution width (RBC) [Ratio]12.6 %11.5 - 14.5 %[facility] HospitalHematocrit (Bld) [Volume fraction]26.5 %Low36.0 - 46.0 %[facility] Hemoglobin (Bld) [Mass/Vol]8.8 g/dLLow12.0 - 16.0 g/dLUnAshtabula County Medical CenterImputnam county memorial hospital granulocytes (Bld) [#/Vol]0.18 10*3/[facility] South CampusImalture granulocytes/100 WBC (Bld)1.6 %High0.0 - 0.9 %[facility] HospitalInterpretation and review of laboratory resultsAbnormal [facility] HospitalLymphocytes (Bld) [#/Vol]1.46 10*3/[facility] CampusLymphocytes/100 WBC (Bld)13.0 %13.0 - 44.0 %[facility] HospitalH (RBC) [Entitic mass]27.9 pg26.0 - 34.0 pgAdams County HospitalHC (RBC) [Mass/Vol]33.2 g/dL32.0 - 36.0 g/dLAdams County HospitalV (RBC) [Entitic vol]84 fL80 - 100 fLUniversIndiana University Health Bloomington HospitalMonocytes (Bld) [#/Vol]0.99 10*3/[facility] CampusMonocytes/100 WBC (Bld)8.8 %2.0 - 10.0 %[facility] Cross HospitalNeutrophils (Bld) [#/Vol]8.47 10*3/[facility] Medical CenterNeutrophils/100 WBC (Bld)75.7 %40.0 - 80.0 %[facility] HospitalNucleated RBC/100 WBC (Bld) [Ratio]0.0 %[facility] HospitalPlatelets (Bld) [#/Vol]377 10*3/[facility] CampusRBC (Bld) [#/Vol]3.15 10*6/[facility] Medical CenterWBC (Bld) [#/Vol] 11.2 10*3/[facility] CampusBasophils (Bld) [#/Vol]0.02 x10*3/[facility] Floridarmal0.00-0.10[facility] HospitalComment on above:Performed By: #### 2341-6 #### HEAVEN Goyal (94956) [facility] ([facility]) [address] [place] [address] 19368Ojbutrpal/100 WBC (Bld)0.2 %Normal0.0-2.0UnTuscarawas HospitalComment on above:Performed By: #### 2341-6 #### HEAVEN Goyal (61062) [facility] ([facility]) [id number] [place] [address] 17524Gljeeoiodem (Bld) [#/Vol]0.08 x10*3/uLNormal0.00-0.70 [facility] HospitalComment on above:Performed By: #### 2341-6 #### HEAVEN Goyal (97914) [facility] ([facility]) [address] [place] [address] 34344Mbpbdcomkws/100 WBC (Bld)0.7 %Normal0.0-6.0UnTuscarawas HospitalComment on above:Performed By: #### 2341-6 #### HEAVEN Goyal (16849) [facility] ([facility]) [address] [place] [address] 68584Tyxynkfztlg distribution width (RBC) [Ratio]12.6 %Normal 11.5-14.5UnTuscarawas HospitalComment on above:Performed By: #### 2341-6 #### HEAVEN Goyal (65495) [facility] ([facility]) [address] [place] [address] 49259Dwwgqbnbgr (Bld) [Volume fraction]26.5 %Low36.0-46.0 [facility] HospitalComment on above:Performed By: #### 2341-6 #### HEAVEN Goyal (58325) [facility] ([facility]) [address] [place] [address] 27297Haysucrfhb (Bld) [Mass/Vol]8.8 g/dLLow12.0-16.0UnTuscarawas HospitalComment on above:Performed By: #### 2341-6 #### HEAVEN Goyal (84326) [facility] ([facility]) [address] [place] [address] 00838Vmhyryth granulocytes (Bld) [#/Vol]0.18 x10*3/uLNormal 0.00-0.70[facility] HospitalComment on above:Performed By: #### 2341-6 #### HEAVEN Goyal (06204) [facility] ([facility]) [address] [place], [place] [address]Cmpcblkc granulocytes/100 WBC (Bld)1.6 %High0.0-0.9UnTuscarawas HospitalComment on above:Result Comment: Immature Granulocyte Count (IG) includes promyelocytes, myelocytes and metamyelocytes but does not include bands. Percent differential counts (%) should be interpreted in the context of the absolute cell counts (cells/UL).Performed By: #### 2341-6 #### HEAVEN Goyal (51033) [facility] ([facility]) [id number] [place] [address] 44461Tihkbjiycuu (Bld) [#/Vol]1.46 x10*3/uLNormal1.20-4.80 [facility] HospitalComment on above:Performed By: #### 2341-6 #### HEAVEN Goyal (26356) [facility] ([facility]) [address] [place], [place] [address]Tjcvkylojoz/100 WBC (Bld)13.0 %Iqdxvl53.0-44.0[facility] HospitalComment on above:Performed By: #### 2341-6 #### HEAVEN Goyal ([id number]) [facility] ([facility]) [address] [place], [place] [address]TBK (RBC) [Entitic mass]27.9 epHbkxnd66.0-34.0[facility] HospitalComment on above:Performed By: #### 2341-6 #### HEAVEN Goyal ([id number]) [facility] ([facility]) [id number] [place] [address] 81406GJIW (RBC) [Mass/Vol]33.2 g/eZBmuudw85.0-36.0UnTuscarawas HospitalComment on above:Performed By: #### 2341-6 #### HEAVEN Goyal ([id number]) [facility] ([facility]) [id number] [place] [address] 86143WOB (RBC) [Entitic vol]84 oTNodkpv04-530MzgiaoegjfTuscarawas HospitalComment on above:Performed By: #### 2341-6 #### HEAVEN PHILIP L ([id number]) [facility] ([facility]) [id number] [place] [address] 92007Vgcoelkzk (Bld) [#/Vol]0.99 x10*3/uLNormal0.10-1.00[facility] HospitalComment on above:Performed By: #### 2341-6 #### HEAVEN Goyal ([id number]) [facility] ([facility]) [address] [place] [address]Fniwozzov/100 WBC (Bld)8.8 %Normal2.0-10.0[facility] HospitalComment on above:Performed By: #### 2341-6 #### HEAVEN Goyal ([id number]) [facility] ([facility]) [id number] [place] [address] 585[address]Ucaosxnlivk (Bld) [#/Vol]8.47 x10*3/uLHigh1.20-7.70[facility] HospitalComment on above:Result Comment: Percent differential counts (%) should be interpreted in the context of the absolute cell counts (cells/uL).Performed By: #### 2341-6 #### HEAVEN Goyal ([id number]) [facility] ([facility]) [address] [place], [place] [address]Ialpgulcuwn/100 WBC (Bld)75.7 %Btkcko46.0-80.0[facility] HospitalComment on above:Performed By: #### 2341-6 #### HEAVEN PANDAMODAMIÁN L (03462) [facility] ([facility]) [id number] [place] [address] 38324Olspfjqai RBC/100 WBC (Bld) [Ratio]0.0 /100 WBCsNormal0.0-0.0 [facility] HospitalComment on above:Performed By: #### 2341-6 #### HEAVEN Goyal ([id number]) [facility] ([facility]) [address] [place], [place] [address]Bczraktoa (Bld) [#/Vol]377 x10*3/pKBjjlfy829-789EpmgywaiffTuscarawas HospitalComment on above:Performed By: #### 2341-6 #### HEAVEN Goyal ([id number]) [facility] ([facility]) [address] [place], [place] [address]GVU (Bld) [#/Vol]3.15 x10*6/uLLow4.00-5.20UnTuscarawas HospitalComment on above:Performed By: #### 2341-6 #### HEAVEN Goyal ([id number]) [facility] ([facility]) [id number] [place] [address] 81474AAY (Bld) [#/Vol]11.2 x10*3/uLNormal4.4-11.3[facility] HospitalComment on above:Performed By: #### 2341-6 #### HEAVEN Goyal ([id number]) [facility] ([facility]) [id number] [place] [address] 55125CBR 12 leadon 62-58-5629Beeqgn Wkqx302MJJLoonyhpnqvTrinity Health System East Campus Work Phone: [phone] Iwkz27etampztMadorxpfchGeorgetown Behavioral Hospital Work Phone: [phone] Vwbuvs808 [facility] Work Phone: [phone] Feuxd541 [facility] Work Phone: [phone] Kmcvymnv025 [facility] Work Phone: [phone] Mwqyy743 [facility] Work Phone: [phone] Dytoj33gxfqsVjcjtfkjfuDayton VA Medical Center Work Phone: [phone] Xvelxexp73 [facility] Work Phone: [phone] Zdxomzkj788 [facility] Work Phone: [phone] Calculation(Dakota)437 [facility] Work Phone: [phone]()[phone] Nodjcphyub729 [facility] Work Phone: [phone]()[phone] Kuzb24vxqfghiYcfuriqxnqProMedica Toledo Hospital Work Phone: [phone]()[phone] Khqk669aoykmcxTnynkxnrjdProMedica Toledo Hospital Work Phone: [phone] Vzrmch879 [facility] Work Phone: [phone] Farw372QZTUyjserpyvgKettering Health Work Phone: [phone] VA Medical Center Work Phone: [phone] Work Phone: [phone] Ujsd89NKCWrdahpnmwdKettering Health Work Phone: [phone]()[phone] Pigeon-8degreesGreen Cross Hospital Work Phone: [phone] Uxywrt224 [facility] Work Phone: [phone]()[phone] Aljzd306 [facility] Work Phone: [phone]()[phone] Qtyrlzhg087 [facility] Work Phone: [phone]()[phone] Xiwxj840 [facility] Work Phone: [phone]()[phone] Gwmdg16arvubMsjfgetmqeDayton VA Medical Center Work Phone: [phone]()[phone] Gbmjqoxe50 [facility] Work Phone: [phone]()[phone] Ctrurhxt891 [facility] Work Phone: [phone]()[phone] Calculation(Marilytt)417 [facility] Work Phone: [phone]()[phone] Lvtmxjmjoy207 [facility] Work Phone: R Shhn59jejalxcRmnbojvxqhProMedica Toledo Hospital Work Phone: [phone]()[phone] Oegd249ugcddoeGkutmfexqhGeorgetown Behavioral Hospital Work Phone: [phone]()[phone] Brrmdx586 [facility] Work Phone: [phone] Uhvy99XMUHraagmvwtoTrinity Health System East Campus Work Phone: [phone] VA Medical Center Work Phone: UnAshtabula County Medical Center Work Phone: Atrial Thwa24CQNHkvlavzofyTrinity Health System East Campus Work Phone: [phone] Cqeb81claksmfIqgaqaqhhsProMedica Toledo Hospital Work Phone: [phone]()[phone] Clpfha895 [facility] Work Phone: [phone]()[phone] Xyyfw906 [facility] Work Phone: [phone]()[phone] Apjolzns238 [facility] Work Phone: [phone]()[phone] Pyqdo569 [facility] Work Phone: [phone]()[phone] Mmvwo41afjqpMljqdkmhzuDayton VA Medical Center Work Phone: [phone]()[phone] Tswfkrgt62 [facility] Work Phone: [phone] Qpvettkj494 [facility] Work Phone: [phone]()[phone] Calculation(Lonzett)445 [facility] Work Phone: QTC Odzpanrfnt983 [facility] Work Phone: [phone] Pigeon-13deProMedica Toledo Hospital Work Phone: [phone] Orge13ptrrjjnYabrcyyslcProMedica Toledo Hospital Work Phone: [phone] Lsqawg108 [facility] Work Phone: Ventricular Uyrk94ELUZvhbqaltavKettering Health Work Phone: [phone] Memorial Hospital Work Phone: [phone] County Medical Center Work Phone: [phone] VA Medical Center Work Phone: [phone] 12 leadOrdered By: Reid Gastelum on 09-01-2025 Atrial Crap40CZEIlqwrfwpjgKettering Health Work Phone: [phone]()[phone] Nxip50oznihunIlwwjcxxthProMedica Toledo Hospital Work Phone: [phone]()[phone] Ebpfxo717 [facility] Work Phone: [phone]()[phone] Onset99 [facility] Work Phone: [phone]()[phone] Rzyvyftd167 [facility] Work Phone: [phone]()[phone] Actye433 [facility] Work Phone: [phone]()[phone] Rapee66anrffPjrolipugeDayton VA Medical Center Work Phone: 1()[phone] Tyyfagsx970 [facility] Work Phone: 1()[phone] Syfimukm492 [facility] Work Phone: [phone]()[phone] Calculation(Dakota)432 [facility] Work Phone: [phone]()[phone] Soniorxgjt363 [facility] Work Phone: [phone]()[phone] Kovl12xlamcryOwqfhjopymProMedica Toledo Hospital Work Phone: 1()[phone] Ltug771gzkeqicPslgeqcxblProMedica Toledo Hospital Work Phone: 1()[phone] Onqyew750 [facility] Work Phone: [phone]()[phone] Rfiy27DMYZdnrgtedoxKettering Health Work Phone: [phone] Work Phone: [phone]()[phone] 12-LEADon 98-56-5983VBL 12-LEADVentricular Rate 93 Atrial Rate 93 P-R Interval 214 QRS Duration 100 Q-T Interval 348 QTC Calculation(Bazett) 432 P Pigeon 13 R Pigeon 57 T Pigeon 129 QRS Count 15 Q Onset 206 P Onset 99 P Offset 153 T Offset 380 QTC Fredericia 403 Diagnosis Poor data quality, interpretation may be adversely affected Sinus rhythm with 1st degree AV block Anterior infarct (cited on or before 27-AUG-2025) Inferolateral injury pattern ACUTE AZ / STEMI Consider right ventricular involvement in acute inferior infarct Abnormal ECG Confirmed by Reid Gastelum ([id number]) on 09/01/2025 5:13:23 [facility] HospitalElectrocardiogram, 12-lead PRN ACS symptomson 41-51-4276Ztkqre Pcnj62UUTNvjrxvbcydTrinity Health System East Campus Work Phone: [phone] Hejs5gmdjjwpDojxjjedwaWilson Memorial Hospital Work Phone: [phone]()[phone] Avapw023 [facility] Work Phone: [phone] Tfbyb47uqbqcHnjerlkcrsOhioHealth Hardin Memorial Hospital Work Phone: [phone]()[phone] Yjhkvdgd50 [facility] Work Phone: [phone]()[phone] Hsrnczhk806 [facility] Work Phone: [phone]()[phone] Calculation(Bazett)475 [facility] Work Phone: [phone]()[phone] Bjyzgrodrx097 [facility] Work Phone: [phone]()[phone] Hwmx25dwqwsotGqzytexrcxProMedica Toledo Hospital Work Phone: 1()[phone] Qnhc73zusfvqsGalwwzhahuGeorgetown Behavioral Hospital Work Phone: 1()[phone] Txonwt647 [facility] Work Phone: [phone]()[phone] Iric46MHSYbkbaoidlqTrinity Health System East Campus Work Phone: MUSEUDayton VA [facility] Center Work Phone: [facility] Work Phone: Atrial Yrum177ANQCzushmkmfxTrinity Health System East Campus Work Phone: [phone]()[phone] Gbtfq835 [facility] Work Phone: QRS Hqkwu78obhhoNkzjiyzlacLakeHealth Beach[facility] Center Work Phone: [phone]()[phone] Aicklfzf28 [facility] Work Phone: [phone]()[phone] Fcnczzvo268 [facility] Work Phone: [phone]()[phone] Calculation(Marily)440 [facility] Work Phone: [phone]()[phone] Zazkpogaes490 [facility] Work Phone: 1()[phone] Jfnh43riwoubmYtfqdmtpjyProMedica Toledo Hospital Work Phone: 1()[phone] Jnnq906lhtnaqjNogfxishzyProMedica Toledo Hospital Work Phone: 1()[phone] Ehzidy446 [facility] Work Phone: [phone]()[phone] Vruy04EFNBixzjcubymKettering Health Work Phone: [phone]()[phone] Medical Center – Jackson Work Phone: [phone] Work Phone: [phone]()[phone] Wxap17DMRNrspmcyrneTrinity Health System East Campus Work Phone: 1()[phone] Mwzj13josalppUexoctpamlProMedica Toledo Hospital Work Phone: 1()[phone] Zdtxnu764 [facility] Work Phone: 1()[phone] Qxugx927 [facility] Work Phone: 1()[phone] Ahgkvphj780 [facility] Work Phone: 1()844-3327Q Wtiuj901 [facility] Work Phone: 1()[phone] Niwrw88kcgpyIbjfhhfiskLakeHealth Beachwood Medical Center Work Phone: 1()[phone] Phqeaqyo76 [facility] Work Phone: [phone]()[phone] Inommjug157 [facility] Work Phone: [phone]()[phone] Calculation(ze)436 [facility] Work Phone: [phone]()[phone] Rzmgrczhvf502 [facility] Work Phone: [phone]()[phone] Xnky6iijuafvEgjjenbwhuProMedica Toledo Hospital Work Phone: [phone]()[phone] Psqx608ztupbauEcebsqigwaProMedica Toledo Hospital Work Phone: [phone]()[phone] Nmqlli784 [facility] Work Phone: [phone] Ydfd84FZDKtnzrzxxgzTrinity Health System [facility] Campus Work Phone: [phone] VA Medical Center Work Phone: [phone]()[phone] County Medical Center Work Phone: [phone]()[phone] Memorial Hospital Work Phone: [phone], 12-lead PRN ACS symptomsOrdered By: Randolph Crenshaw on 06-08-7449Abviax Bpzt71FNEXfywgiekfzTrinity Health System East Campus Work Phone: [phone]()[phone] Myhe80cyvytpaBbdtztgoqwProMedica Toledo Hospital Work Phone: 1()[phone] Zlwqrz706 [facility] Work Phone: 1()[phone] Zcnod000 [facility] Work Phone: [phone]()[phone] Nrkcbrsm720 [facility] Work Phone: 1()[phone] Ivbts689 [facility] Work Phone: [phone]()[phone] Qtyir30domquNzipvjrywvDayton VA Medical Center Work Phone: 1()[phone] Jwadtqfl51 [facility] Work Phone: 1()[phone] Fdkcnlai136 [facility] Work Phone: [phone]()[phone] Calculation(Bazett)436 [facility] Work Phone: [phone]()[phone] Mvhdxyszjr258 [facility] Work Phone: [phone]()[phone] Pigeon-4degWilson Memorial Hospital Work Phone: 1()[phone] Bxxa13omlqqibUfrihzuyayGeorgetown Behavioral Hospital Work Phone: 1()[phone] Iyzysx776 [facility] DepartmentAshtabula County Medical Center Work Phone: Ventricular Mikx58FDVOmogpgljrbTrinity Health System East Campus Work Phone: UnAshtabula County Medical Center Work Phone: Extra Urine Topete TubeOrdered By: Bry Edouard on 68-71-6563XfqfvwtiabGreen Cross Hospital Work Phone: Glucose Test strip manual (Bld) [Mass/Vol]on 91-03-2912Oizdlnt [Mass/Vol]243 mg/hGQtoi04 - 99 mg/dLUnAshtabula County Medical CenterInterpretation and review of laboratory resultsAbnoHolzer Medical Center – JacksonUnAshtabula County Medical CenterGlucose [Mass/Vol]243 mg/dVVurl48-61AldbmtrgcvTuscarawas HospitalComment on above: Performed By: #### 2341-6 #### HEAVEN Goyal ([id number]) [facility] ([facility]) [address] [place] [address] 44894Sdewdru [Mass/Vol]189 mg/fMWkip43 - 99 mg/dLUnAshtabula County Medical CenterInterpretation and review of laboratory resultsAbWayne HealthCare Main CampusUnAshtabula County Medical CenterGlucose [Mass/Vol]189 mg/kMZatd10-15YsaygbfubhTuscarawas HospitalComment on above:Performed By: #### 2341-6 #### HEAVEN Goyal ([id number]) [facility] ([facility]) [address] [place] [address] 80628Yzexjfw [Mass/Vol]252 mg/lIJfri93 - 99 mg/dLUnAshtabula County Medical CenterInterpretation and review of laboratory resultsAbWayne HealthCare Main CampusUnAshtabula County Medical CenterGlucose [Mass/Vol]252 mg/eIKvwn30-22KakqzyyxpvTuscarawas HospitalComment on above:Performed By: #### 2341-6 #### HEAVEN Goyal (28354) [facility] ([facility]) [address] [place] [address] 21419Hibcosg [Mass/Vol]273 mg/xCBbhn69 - 99 mg/dLUnAshtabula County Medical CenterInterpretation and review of laboratory resultsAbnoal [facility] Memorial HospitalGlucose [Mass/Vol]273 mg/uYIgxe39-87FuatjajqrwPremier Health Miami Valley HospitalComment on above:Performed By: #### 2341-6 #### HEAVEN Goyal (05533) [facility] ([facility]) [address] [place] [address] 20469Hickugx Assayon 84-09-4656Aegbgox unfractionated Chromogenic method Qn (PPP)0.3See Comment Below for Therapeutic Ranges IU/mLGreen Cross HospitalHeparin unfractionated Chromogenic method Qn (PPP)0.4See Comment Below for Therapeutic Ranges IU/mLGreen Cross Hospital Heparin unfractionated Chromogenic method Qn (PPP)on 15-86-4339Yoyozvmwnlhunc and review of laboratory resultsNoProtestant Deaconess HospitalUnAshtabula County Medical CenterInterpretation and review of laboratory resultsNormalUDayton VA Medical Center Heparin.unfractionatedon 46-73-6117Kcsulir unfractionated Chromogenic method Qn (PPP)0.3 IU/mLNormalSee Comment Below for Therapeutic RangesPremier Health Miami Valley HospitalComment on above:Order Comment: The therapeutic reference range for UFH may be either 0.3-0.6 IU/mL or 0.3-0.7 IU/mLbased on the clinical setting for anticoagulant therapy and the associated nomogram used. For Heparin dosing guidelines based on clinical scenario and Heparin Assay results, please refer to local Pharmacy and the [facility] Guidelines for Anticoagulation Therapy available on the [facility] intranet at: [email or web address]://[email or web address] citymunity.[email or web address]/Pharmacy/Pages/[facility]eadville Medical Centerlin es_for_Anticoagu.aspxPerformed By: #### 2341-6 #### HEAVEN Goyal (44194) [facility] ([facility]) [address] [place] [address] 65925Aphinmy unfractionated Chromogenic method Qn (PPP)0.4 IU/mL NormalSee Comment Below for Therapeutic RangesPremier Health Miami Valley HospitalComment on above:Order Comment: The therapeutic reference range for UFH may be either 0.3-0.6 IU/mL or 0.3-0.7 IU/mLbased on the clinical setting for anticoagulant therapy and the associated nomogram used. For Heparin dosing guidelines based on clinical scenario and Heparin Assay results, please refer to local Pharmacy and the [facility] Guidelines for Anticoagulation Therapy available on the [facility] intranet at: [email or web address]/Pharmacy/Pages/[facility]_Guidelin es_for_Anticoagu.aspxPerformed By: #### 2341-6 #### HEAVEN Goyal (15343) [facility] ([facility]) [address] [place] [address] 07114Nabapsy function 2000 panelon 81-35-2824Gzejtmw BCP dye [Mass/Vol]3.0 g/dLLow3.4 - 5.0 g/dLUnAshtabula County Medical CenterALP [Catalytic activity/Vol]123 U/LHigh33 - 110 U/[facility] ALT With P-5'-P [Catalytic activity/Vol]14 U/L7 - 45 U/[facility] HospitalAST With P-5'-P [Catalytic activity/Vol]15 U/L9 - 39 U/[facility] HospitalBilirubin [Mass/Vol]0.7 mg/dL0.0 - 1.2 mg/dLGreen Cross HospitalBilirubin.direct [Mass/Vol]0.1 mg/dL0.0 - 0.3 mg/dL Green Cross HospitalInterpretation and review of laboratory results AbnormalUnAshtabula County Medical CenterProtein [Mass/Vol]5.7 g/dLLow6.4 - 8.2 g/dLUnAshtabula County Medical CenterUnAshtabula County Medical CenterAlbumin BCP dye [Mass/Vol]3.0 g/dLLow3.4-5.0UnTuscarawas HospitalComment on above:Performed By: #### 2341-6 #### HEAVEN Goyal ([id number]) [facility] ([facility]) [address] [place] [address] 26458YBV [Catalytic activity/Vol]123 U/URslc07-390ZlwkvfrgdbTuscarawas HospitalComment on above:Performed By: #### 2341-6 #### HEAVEN Goyal ([id number]) [facility] ([facility]) [id number] [place] [address] 95411CGF With P-5'-P [Catalytic activity/Vol]14 U/LNormal7-45 [facility] HospitalComment on above:Result Comment: Patients treated with Sulfasalazine may generate falsely decreased results for ALT.Performed By: #### 2341-6 #### HEAVEN Goyal (32991) [facility] ([facility]) [address] [place] [address] 28977VNC With P-5'-P [Catalytic activity/Vol]15 U/LNormal9-39 [facility] HospitalComment on above:Performed By: #### 2341-6 #### HEAVEN Goyal ([id number]) [facility] ([facility]) [address] [place] [address] 29161Fdjngqnwb [Mass/Vol]0.7 mg/dLNormal0.0-1.2UnTuscarawas HospitalComment on above:Performed By: #### 2341-6 #### HEAVEN Goyal (90127) [facility] ([facility]) [id number] [place] [address] 99808Tzconkbhq.direct [Mass/Vol]0.1 mg/dLNormal0.0-0.3Prem[facility] HospitalComment on above:Performed By: #### 2341-6 #### HEAVEN Goyal (45483) [facility] ([facility]) [address] [place] [address] 80612Pwmnjxe [Mass/Vol]5.7 g/dLLow6.4-8.2UnTuscarawas HospitalComment on above:Performed By: #### 2341-6 #### HEAVEN Goyal (33276) [facility] ([facility]) [id number] [place] [address] 81682Ygiwnjnajeo 96-19-6696Ykxulmwpm [Mass/Vol]2.46 mg/dLHigh1.60 - 2.40 mg/dLGreen Cross HospitalMagnesium [Mass/Vol]2.46 mg/dLHigh 1.60-2.40Prem[facility] HospitalComment on above:Performed By: #### 2341-6 #### HEAVEN Goyal ([id number]) [facility] ([facility]) [address] [place] [address] 45591Ezoezhile [Mass/Vol]on 14-99-3931Ucasgmhxwxjtzu and review of laboratory resultsAbnoHolzer Medical Center – JacksonNo Panel Information on 06-73-4058IzkivbnbseAshtabula County Medical CenterUnFostoria City HospitalUnAshtabula County Medical CenterPT and aPTT panel Coag (PPP)on 38-01-8637pVBD Coag (PPP) [Time]49 CentervilleINR Coag (PPP) [Relative time]1.1 {INR}0.9 - 1.1Green Cross HospitalInterpretation and review of laboratory resultsAbTrinity Health System Twin City Medical CenterPT Coag (PPP) [Time]11.6 [facility] HospitalaPTT Coag (PPP) [Time]49 bButi52-13NfnwjafcseTuscarawas HospitalComment on above:Order Comment: The APTT is no longer used for monitoring Unfractionated Heparin Therapy. For monitoring Heparin Therapy, use the Heparin Assay.Performed By: #### 2341-6 #### HEAVEN Goyal (33541) [facility] ([facility]) [address] [place] [address] 57179TUJ Coag (PPP) [Relative time]1.0Qsnogx4.9-1.1UnTuscarawas HospitalComment on above:Order Comment: The APTT is no longer used for monitoring Unfractionated Heparin Therapy. For monitoring Heparin Therapy, use the Heparin Assay.Performed By: #### 2341-6 #### HEAVEN Goyal (83057) [facility] ([facility]) [address] [place] [address] 40983IX Coag (PPP) [Time]11.6 sNormal9.8-12.4Prem[facility] HospitalComment on above:Order Comment: The APTT is no longer used for monitoring Unfractionated Heparin Therapy. For monitoring Heparin Therapy, use the Heparin Assay.Performed By: #### 2341-6 #### HEAVEN Goyal (16560) [facility] ([facility]) [id number] [place] [address] 41060Qhqvkfwoqvw 23-13-0108Uepqylemz [Mass/Vol]3.5 mg/dLNormal 2.5-4.9Prem[facility] HospitalComment on above:Performed By: #### 2341-6 #### HEAVEN Goyal (26426) [facility] ([facility]) [id number] [place] [address] 72429Tdphfugug [Mass/Vol]on 48-43-4808Iylnofnqeelaku and review of laboratory resultsNoHolzer Medical Center – JacksonPhosphoruson 37-91-1955Uzsreywyu [Mass/Vol]3.5 mg/dL2.5 - 4.9 mg/dLUnAshtabula County Medical CenterRB shape Nom (Bld)on 34-90-9466SNF morphology finding Nom (Bld)No significant RBC morphology presentUnMansfield Hospital morphology finding Nom (Bld)No significant RBC morphology presentNoSelect Medical Specialty Hospital - CantonComment on above:Performed By: #### 2341-6 #### HEAVEN Goyal ([id number]) [facility] ([facility]) [address] [place] [address] 50486Icazu CultureOrdered By: Teodoro Riddle on 06-24-5948Zzouhypu identified Cx Nom (U)20,000 - 80,000 CFU/mL Escherichia coliAbnoHolzer Medical Center – JacksonBasi metabolic 2000 panelon 21-20-6910Gitar gap [Moles/Vol]19 mmol/L10 - 20 mmol/[facility] HospitalCalcium [Mass/Vol]7.9 mg/dLLow8.6 - 10.6 mg/dLUnAshtabula County Medical CenterChloride [Moles/Vol]92 mmol/LLow98 - 107 mmol/[facility] HospitalCO2 [Moles/Vol]21 mmol/L21 - 32 mmol/[facility] HospitalCreatinine [Mass/Vol]4.39 mg/dLHigh0.50 - 1.05 mg/dLUnAshtabula County Medical Center GFR/1.73 sq M.predicted among non-blacks MDRD (S/P/Bld) [Vol rate/Area]11 mL/min/{1.73_m2}Low- PINFUniHolzer Medical Center – JacksonGlucose [Mass/Vol]247 mg/wQRngs12 - 99 mg/dLUnAshtabula County Medical CenterInterpretation and review of laboratory resultsAbnormalUniHolzer Medical Center – JacksonPotassium [Moles/Vol]3.3 mmol/LLow3.5 - 5.3 mmol/[facility] HospitalSodium [Moles/Vol]129 mmol/DAbx788 - 145 mmol/[facility] HospitalUrea nitrogen [Mass/Vol]69 mg/dLHigh6 - 23 mg/dLUnFostoria City HospitalAnion gap [Moles/Vol]19 mmol/RNyzhzg96-09 [facility] HospitalComment on above:Performed By: #### 2341-6 #### HEAVEN Goyal (60280) [facility] ([facility]) [address] [place] [address] 94158Ohdrgsg [Mass/Vol]7.9 mg/dLLow8.6-10.6UnTuscarawas HospitalComment on above:Performed By: #### 2341-6 #### HEAVEN Goyal ([id number]) [facility] ([facility]) [address] [place] [address] 19512Izxxxooj [Moles/Vol]92 mmol/RStb63-370WofdjwgksfTuscarawas HospitalComment on above:Performed By: #### 2341-6 #### HEAVEN Goyal (04996) [facility] ([facility]) [address] [place] [address] 90440NS7 [Moles/Vol]21 mmol/TYrazsl30-04DmzhdfdjbkTuscarawas HospitalComment on above:Performed By: #### 2341-6 #### HEAVEN Goyal ([id number]) [facility] ([facility]) [address] [place], [place] [address]Kkgpcipufs [Mass/Vol]4.39 mg/dLHigh0.50-1.05[facility] HospitalComment on above:Performed By: #### 2341-6 #### HEAVEN Goyal ([id number]) [facility] ([facility]) [id number] [place] [address] 39387Kqpfgrwjdo filtration rate11 mL/min/1.73m*2Low>60UnTuscarawas HospitalComment on above:Result Comment: Calculations of estimated GFR are performed using the 2020 CKD-EPI Study Refit equation without the race variable for the IDMS-Traceable creatinine methods. https://jasn.asnjournals.org/content/early/ASN.6801571663Nlsintedu By: #### 2341-6 #### HEAVEN Goyal ([id number]) [facility] ([facility]) [id number] [place] [address] 13192Hmcjkfi [Mass/Vol]247 mg/gZZehr62-84RwinaddwpxTuscarawas HospitalComment on above:Performed By: #### 2341-6 #### HEAVEN Goyal ([id number]) [facility] ([facility]) [id number] [place] [address] [id number] [Moles/Vol]3.3 mmol/LLow3.5-5.3Premier Health Miami Valley HospitalComment on above:Performed By: #### 2341-6 #### HEAVEN Goyal ([id number]) [facility] ([facility]) [id number] [place] [address] 04667Fnizrm [Moles/Vol]129 mmol/UMlp898-816CvalfatjiiTuscarawas HospitalComment on above:Performed By: #### 2341-6 #### HEAVEN Goyal (99760) [facility] ([facility]) [address] [place] [address] 40725Kzny nitrogen [Mass/Vol]69 mg/dLHigh6-23UnTuscarawas HospitalComment on above:Performed By: #### 2341-6 #### HEAVEN Goyal ([id number]) [facility] ([facility]) [address] [place], [place] [address]KGB W Auto Differential panel (Bld)on 64-53-5955Kptmsrzys (Bld) [#/Vol]0.04 10*3/[facility] CampusBasophils/100 WBC (Bld)0.3 %0.0 - 2.0 %[facility] HospitalEosinophils (Bld) [#/Vol] 0.03 10*3/[facility] CampusEosinophils/100 WBC (Bld)0.2 %0.0 - 6.0 %[facility] HospitalErythrocyte distribution width (RBC) [Ratio]12.5 %11.5 - 14.5 %[facility] HospitalHematocrit (Bld) [Volume fraction]26.8 %Low36.0 - 46.0 %[facility] Hemoglobin (Bld) [Mass/Vol]9.0 g/dLLow12.0 - 16.0 g/dLUnAshtabula County Medical CenterImmamercy health st. [facility] granulocytes (Bld) [#/Vol]0.18 10*3/[facility] CampusImputnam county memorial hospital granulocytes/100 WBC (Bld)1.4 %High0.0 - 0.9 %[facility] HospitalInterpretation and review of laboratory resultsAbnormal [facility] HospitalLymphocytes (Bld) [#/Vol]1.12 10*3/uLLow [facility] HospitalLymphocytes/100 WBC (Bld)8.5 %13.0 - 44.0 % [facility] HospitalMCH (RBC) [Entitic mass]28.2 pg26.0 - 34.0 pg [facility] HospitalMCHC (RBC) [Mass/Vol]33.6 g/dL32.0 - 36.0 g/dL [facility] HospitalV (RBC) [Entitic vol]84 fL80 - 100 fL [facility] HospitalMonocytes (Bld) [#/Vol]1.02 10*3/uLMiami Valley HospitalMonocytes/100 WBC (Bld)7.8 %2.0 - 10.0 % [facility] HospitalNeutrophils (Bld) [#/Vol]10.71 10*3/[facility] HospitalNeutrophils/100 WBC (Bld)81.8 %40.0 - 80.0 % [facility] HospitalNucleated RBC/100 WBC (Bld) [Ratio]0.0 % [facility] HospitalPlatelets (Bld) [#/Vol]345 10*3/[facility] CampusRBC (Bld) [#/Vol]3.19 10*6/[facility] Medical CenterWBC (Bld) [#/Vol]13.1 10*3/[facility] CenterBasophils (Bld) [#/Vol]0.04 x10*3/uLNormal 0.00-0.10Prem[facility] HospitalComment on above:Performed By: #### 2341-6 #### HEAVEN Goyal ([id number]) [facility] ([facility]) [id number] [place] [address] 24665Uqtmyydfa/100 WBC (Bld)0.3 %Normal0.0-2.0UnTuscarawas HospitalComment on above:Performed By: #### 2341-6 #### HEAVEN Goyal ([id number]) [facility] ([facility]) [address] [place] [address] 49944Hrfzlsheusz (Bld) [#/Vol]0.03 x10*3/uLNormal0.00-0.70 [facility] HospitalComment on above:Performed By: #### 2341-6 #### HEAVEN Goyal ([id number]) [facility] ([facility]) [address] [place] [address] 57212Afbidaoaoem/100 WBC (Bld)0.2 %Normal0.0-6.0UnTuscarawas HospitalComment on above:Performed By: #### 2341-6 #### HEAVEN Goyal ([id number]) [facility] ([facility]) [address] [place], [place] [address]Muarbpcvxro distribution width (RBC) [Ratio]12.5 %Normal 11.5-14.5UnTuscarawas HospitalComment on above:Performed By: #### 2341-6 #### HEAVEN Goyal ([id number]) [facility] ([facility]) [address] [place], [place] [address]Etivwctzmz (Bld) [Volume fraction]26.8 %Low36.0-46.0 [facility] HospitalComment on above:Performed By: #### 2341-6 #### HEAVEN Goyal (68539) [facility] ([facility]) [address] [place] [address] 55024Mlftrqciso (Bld) [Mass/Vol]9.0 g/dLLow12.0-16.0UnTuscarawas HospitalComment on above:Performed By: #### 2341-6 #### HEAVEN Goyal (24801) [facility] ([facility]) [address] [place] [address] 67326Jdesnbwt granulocytes (Bld) [#/Vol]0.18 x10*3/uLNormal 0.00-0.70UnTuscarawas HospitalComment on above:Performed By: #### 2341-6 #### HEAVEN Goyal (21871) [facility] ([facility]) [address] [place] [address] 61432Trvkothd granulocytes/100 WBC (Bld)1.4 %High0.0-0.9UnTuscarawas HospitalComment on above:Result Comment: Immature Granulocyte Count (IG) includes promyelocytes, myelocytes and metamyelocytes but does not include bands. Percent differential counts (%) should be interpreted in the context of the absolute cell counts (cells/UL).Performed By: #### 2341-6 #### HEAVEN Goyal (44452) [facility] ([facility]) [address] [place], [place] [address]Cnrqfqjdgrm (Bld) [#/Vol]1.12 x10*3/uLLow1.20-4.80Un[facility] Hospitals [facility]app Medical CenterComment on above:Performed By: #### 2341-6 #### HEAVEN Goyal (48736) [facility] ([facility]) [address] [place], [place] [address]Fhtszsysjxt/100 WBC (Bld)8.5 %Tsniqy19.0-44.0UnTuscarawas HospitalComment on above:Performed By: #### 2341-6 #### HEAVEN Goyal (12506) [facility] ([facility]) [address] [place], [place] [address]JJM (RBC) [Entitic mass]28.2 kwKnzomj75.0-34.0UnTuscarawas HospitalComment on above:Performed By: #### 2341-6 #### HEAVEN Goyal (73506) [facility] ([facility]) [address] [place] [address] 930[address]METL (RBC) [Mass/Vol]33.6 g/aEQyddrq67.0-36.0UnTuscarawas HospitalComment on above:Performed By: #### 2341-6 #### HEAVEN Goyal ([id number]) [facility] ([facility]) [address] [place] [address] 72984ZMG (RBC) [Entitic vol]84 pAJhiekt05-075AadmvepuwmPremier Health Miami Valley HospitalComment on above:Performed By: #### 2341-6 #### HEVAEN Goyal ([id number]) [facility] ([facility]) [address] [place] [address] 605[address]Qmoyuaceh (Bld) [#/Vol]1.02 x10*3/uLHigh0.10-1.00UnTuscarawas HospitalComment on above:Performed By: #### 2341-6 #### HEAVEN Goyal (45506) [facility] ([facility]) [address] [place], [place] [address]Rbrikplge/100 WBC (Bld)7.8 %Normal2.0-10.0[facility] HospitalComment on above:Performed By: #### 2341-6 #### HEAVEN Goyal (94894) [facility] ([facility]) [address] [place], [place] [address]Rjadpvemnpa (Bld) [#/Vol]10.71 x10*3/uLHigh1.20-7.70 [facility] HospitalComment on above:Result Comment: Percent differential counts (%) should be interpreted in the context of the absolute cell counts (cells/uL).Performed By: #### 2341-6 #### HEAVEN Goyal (18060) [facility] ([facility]) [address] [place], [place] [address]Ovxjgpxlaqa/100 WBC (Bld)81.8 %Gkqroi63.0-80.0UnTuscarawas HospitalComment on above:Performed By: #### 2341-6 #### HEAVEN Goyal (22798) [facility] ([facility]) [address] [place], [place] [address]Ewqtnifgz RBC/100 WBC (Bld) [Ratio]0.0 /100 WBCsNormal0.0-0.0 [facility] HospitalComment on above:Performed By: #### 2341-6 #### HEAVEN PHILIP L ([id number]) [facility] ([facility]) [address] [place] [address] 460[address]Pevdgqvon (Bld) [#/Vol]345 x10*3/gYGvggsj445-712TitzmqiafwTuscarawas HospitalComment on above:Performed By: #### 2341-6 #### HEAVEN PHILIP L (54905) [facility] ([facility]) [address] [place], [place] [address]FWK (Bld) [#/Vol]3.19 x10*6/uLLow4.00-5.20UnTuscarawas HospitalComment on above:Performed By: #### 2341-6 #### HEAVEN PHILIP L ([id number]) [facility] ([facility]) [address] [place] [address] 801[address]KLY (Bld) [#/Vol]13.1 x10*3/uLHigh4.4-11.3Prem[facility] HospitalComment on above:Performed By: #### 2341-6 #### HEAVEN Goyal (24097) [facility] ([facility]) [address] [place], [place] [address]ZSI 12-LEADon 15-43-3721TGU 12-LEADVentricular Rate 92 Atrial Rate 92 P-R Interval 224 QRS Duration 82 Q-T Interval 428 QTC Calculation(Bazett) 529 R Pigeon 79 T Pigeon 133 QRS Count 15 Q Onset 219 T Offset 433 QTC Fredericia 493 Diagnosis Sinus rhythm with 1st degree AV block Septal infarct , new Prolonged QT ACUTE [place] Abnormal ECG When compared with ECG of 31-AUG-2025 05:48, Acute Septal infarct is now Present Confirmed by Moisés Goldberg ([id number]) on 09/03/2025 7:43:55 AMNNew Ulm Medical CenterGlucose Test strip manual (Bld) [Mass/Vol]on 66-51-7762Fxvrjbe [Mass/Vol]315 mg/bUSwmb57 - 99 mg/dLUnAshtabula County Medical Center Interpretation and review of laboratory resultsAbnoMercy Health Kings Mills HospitalGlucose [Mass/Vol]315 mg/tICwlh31-18 [facility] HospitalComment on above:Performed By: #### 2341-6 #### HEAVEN Goyal (23335) [facility] ([facility]) [address] [place], [place] [address]Ijcfdae [Mass/Vol]305 mg/wOHdvu70 - 99 mg/dLGreen Cross HospitalInterpretation and review of laboratory resultsAbWood County HospitalGlucose [Mass/Vol]305 mg/kSHwhn98-83QxwrdkgdphTuscarawas HospitalComment on above:Performed By: #### 2341-6 #### HEAVEN Goyal (64598) [facility] ([facility]) [address] [place], [place] [address]Kazkfix [Mass/Vol]291 mg/hEZejv21 - 99 mg/dLGreen Cross HospitalInterpretation and review of laboratory resultsAbWayne HealthCare Main CampusUnAshtabula County Medical CenterGlucose [Mass/Vol]291 mg/cRRgrp41-43FszbejerhgTuscarawas HospitalComment on above:Performed By: #### 2341-6 #### HEAVEN Goyal (94627) [facility] ([facility]) [address] [place], [place] [address]Zmtqvci [Mass/Vol]256 mg/qHOkgy29 - 99 mg/dLGreen Cross HospitalInterpretation and review of laboratory resultsAbWood County HospitalGlucose [Mass/Vol]256 mg/zALqab71-99TnzvvlkqrvTuscarawas HospitalComment on above:Performed By: #### 10131-2 #### HEAVEN Goyal (74849) [facility] ([facility]) [address] [place], [place] [address]Jbndhjn Assayon 56-88-1865Audcgys unfractionated Chromogenic method Qn (PPP)0.2See Comment Below for Therapeutic Ranges IU/mLUnAshtabula County Medical CenterHeparin unfractionated Chromogenic method Qn (PPP)0.2See Comment Below for Therapeutic Ranges IU/mLGreen Cross Hospital Heparin unfractionated Chromogenic method Qn (PPP)0.2See Comment Below for Therapeutic Ranges IU/mLGreen Cross HospitalHeparin unfractionated Chromogenic method Qn (PPP)on 41-32-7920Eipooyuqxpktvl and review of laboratory resultsNormalUniCommunity Memorial HospitalInterpretation and review of laboratory results NormalGreen Cross HospitalUnFostoria City HospitalHeparin.unfractionatedon 56-02-3707Webzjjl unfractionated Chromogenic method Qn (PPP)0.2 IU/mLNormalSee Comment Below for Therapeutic RangesPremier Health Miami Valley HospitalComment on above: Order Comment: The therapeutic reference range for UFH may be either 0.3-0.6 IU/mL or 0.3-0.7 IU/mLbased on the clinical setting for anticoagulant therapy and the associated nomogram used. For Heparin dosing guidelines based on clinical scenario and Heparin Assay results, please refer to local Pharmacy and the [facility] Guidelines for Anticoagulation Therapy available on the [facility] intranet at: [email or web address] es_for_[email or web address].aspxPerformed By: #### 2341-6 #### HEAVEN Goyal (68235) [facility] ([facility]) [address] [place] [address]Enallex unfractionated Chromogenic method Qn (PPP)0.2 IU/mL NormalSee Comment Below for Therapeutic RangesPremier Health Miami Valley HospitalComment on above:Order Comment: The therapeutic reference range for UFH may be either 0.3-0.6 IU/mL or 0.3-0.7 IU/mLbased on the clinical setting for anticoagulant therapy and the associated nomogram used. For Heparin dosing guidelines based on clinical scenario and Heparin Assay results, please refer to local Pharmacy and the [facility] Guidelines for Anticoagulation Therapy available on the [facility] intranet at: [email or web address] es_for_Anticoagu.aspxPerformed By: #### 2341-6 #### HEAVEN Goyal ([id number]) [facility] ([facility]) [address] [place] [address]Crrfhuq unfractionated Chromogenic method Qn (PPP)0.2 IU/mL NormalSee Comment Below for Therapeutic RangesPremier Health Miami Valley HospitalComment on above:Order Comment: The therapeutic reference range for UFH may be either 0.3-0.6 IU/mL or 0.3-0.7 IU/mLbased on the clinical setting for anticoagulant therapy and the associated nomogram used. For Heparin dosing guidelines based on clinical scenario and Heparin Assay results, please refer to local Pharmacy and the [facility] Guidelines for Anticoagulation Therapy available on the [facility] intranet at: [email or web address] es_for_Anticoagu.aspxPerformed By: #### 2341-6 #### HEAVEN Goyal (62562) [facility] ([facility]) [id number] [place] [address] 68973Gwgpjal function 2000 panelon 06-18-6419Jfftdwn BCP dye [Mass/Vol]3.3 g/dLLow3.4 - 5.0 g/dLUnAshtabula County Medical CenterALP [Catalytic activity/Vol]121 U/LHigh33 - 110 U/[facility] ALT With P-5'-P [Catalytic activity/Vol]15 U/L7 - 45 U/[facility] HospitalAST With P-5'-P [Catalytic activity/Vol]17 U/L9 - 39 U/[facility] HospitalBilirubin [Mass/Vol]0.6 mg/dL0.0 - 1.2 mg/dLGreen Cross HospitalBilirubin.direct [Mass/Vol]0.1 mg/dL0.0 - 0.3 mg/dL [facility] HospitalInterpretation and review of laboratory results AbnormalUnAshtabula County Medical CenterProtein [Mass/Vol]6.6 g/dL6.4 - 8.2 g/dLUnAshtabula County Medical CenterUnAshtabula County Medical CenterAlbumin BCP dye [Mass/Vol]3.3 g/dLLow3.4-5.0UnTuscarawas HospitalComment on above:Performed By: #### 2341-6 #### HEAVEN Goyal (92645) [facility] ([facility]) [address] [place] [address] 65747HWV [Catalytic activity/Vol]121 U/QPlya42-218QekikmvkktTuscarawas HospitalComment on above:Performed By: #### 2341-6 #### HEAVEN Goyal (21891) [facility] ([facility]) [id number] [place] [address] 68[address]PAZ With P-5'-P [Catalytic activity/Vol]15 U/LNormal7-45 [facility] HospitalComment on above:Result Comment: Patients treated with Sulfasalazine may generate falsely decreased results for ALT.Performed By: #### 2341-6 #### HEAVEN Goyal (77185) [facility] ([facility]) [address] [place] [address] 746[address]JCW With P-5'-P [Catalytic activity/Vol]17 U/LNormal9-39 [facility] HospitalComment on above:Performed By: #### 2341-6 #### HEAVEN Goyal (39669) [facility] ([facility]) [address] [place] [address] 71157Txxotkodd [Mass/Vol]0.6 mg/dLNormal0.0-1.2UnTuscarawas HospitalComment on above:Performed By: #### 2341-6 #### HEAVEN Goyal (04648) [facility] ([facility]) [address] [place] [address] 188[address]Xsqnyzpqg.direct [Mass/Vol]0.1 mg/dLNormal0.0-0.3UnTuscarawas HospitalComment on above:Performed By: #### 2341-6 #### HEAVEN Goyal (07830) [facility] ([facility]) [address] [place] [address] 85[address]Zlrfrbf [Mass/Vol]6.6 g/dLNormal6.4-8.2UnTuscarawas HospitalComment on above:Performed By: #### 2341-6 #### HEAVEN Goyal (14274) [facility] ([facility]) [address] [place] [address] 39436Ofivmxnqdeg 16-32-8584Jlpwvwwjt [Mass/Vol]2.50 mg/dLHigh1.60 - 2.40 mg/dLGreen Cross HospitalMagnesium [Mass/Vol]2.50 mg/dLHigh 1.60-2.40UnTuscarawas HospitalComment on above:Performed By: #### 2341-6 #### HEAVEN Goyal (56002) [facility] ([facility]) [address] [place] [address] 98[address]Mz Panel Informationon 69-57-1937Zjwvevgeotmxcf and review of laboratory resultsAbnormalUniversity Hospitals Newman Memorial Hospital – ShattuckInterpretation and review of laboratory resultsNormalUniHolzer Medical Center – JacksonUnAshtabula County Medical CenterUnAshtabula County Medical CenterPT and aPTT panel Coag (PPP)on 41-32-5631iTDZ Coag (PPP) [Time]32 s Green Cross HospitalINR Coag (PPP) [Relative time]1.0 {INR}0.9 - 1.1Green Cross HospitalPT Coag (PPP) [Time]11.5 [facility] HospitalaPTT Coag (PPP) [Time]32 bSydlzb92-91HuimbuevqhPremier Health Miami Valley HospitalComment on above:Order Comment: Less than 99th percentile of normal range [...] performed using a different testing methodology at [facility] than at other [facility]. Direct result comparisons should only be made within the same method.Performed By: #### 28821-3 #### HEAVEN Goyal (30577) [facility] ([facility]) [address] [place] [address] 51421YOZ Coag (PPP) [Relative time]1.3Buguom3.9-1.1[facility] HospitalComment on above:Order Comment: Less than 99th percentile of normal range [...] performed using a different testing methodology at [facility] than at other [facility]. Direct result comparisons should only be made within the same method.Performed By: #### 59902-5 #### HEAVEN Goyal (18660) [facility] ([facility]) [address] [place] [address] 90205FC Coag (PPP) [Time]11.5 sNormal9.8-12.4UnTuscarawas HospitalComment on above:Order Comment: Less than 99th percentile of normal range [...] performed using a different testing methodology at [facility] than at other [facility]. Direct result comparisons should only be made within the same method.Performed By: #### 79097-9 #### HEAVEN Goyal (70421) [facility] ([facility]) [address] [place], [place] [address]Kakuvdyrovi 04-51-0446Musnctbsb [Mass/Vol]5.7 mg/dLHigh 2.5-4.9[facility] HospitalComment on above:Performed By: #### 2341-6 #### HEAVEN Goyal (94692) [facility] ([facility]) [address] [place] [address] 68616Tkvfqafebpmq 30-44-2982Lftykvslk [Mass/Vol]5.7 mg/dLHigh2.5 - 4.9 mg/dLGreen Cross HospitalTropinin I.cardiac panel High sensitivity methodon 26-43-5727Sbgqfxubaecvfd and review of laboratory results AbnormalUnAshtabula County Medical CenterUnFostoria City HospitalTrst. james hospital and clinic I, High Sensitivityon 08-31-2025 Tropinin I.cardiac panel High sensitivity wqsupv38788 ng/LCritically high0 - 34 ng/[facility] Preblenin I.cardiac panelon 08-31-2025 Tropinin I.cardiac panel High sensitivity iypmmj21206 ng/LCritically high0-34 [facility] HospitalComment on above:Order Comment: Less than 99th percentile of normal range cutoff-Female and children under 18 years old <35 ng/L; Male <54 ng/L: NegativeRepeat testing should be performed if clinically indicated.Female and children under 18 years old 35-120 ng/L; Male 54-120 ng/L:Consistent with possible cardiac damage and possible increased clinicalrisk. Serial measurements may help to assess extent of myocardial damage.>120 ng/L: Consistent with cardiac damage, increased clinical risk andmyocardial infarction. Serial measurements may help assess extent ofmyocardial damage.NOTE: Children less than 1year old may have higher baseline troponinlevels and results should be interpreted in conjunction with the overallclinical context.NOTE: Troponin I testing is performed using a differenttesting methodology at [facility] than at [facility]. Direct result comparisons should onlybe made within the same method. Performed By: #### 2341-6 #### HEAVEN Goyal ([id number]) [facility] ([facility]) [address] [place] [address] 55513Rgyxhsxuey 58-61-5111Mhglpjpf identified Cx Nom (U)Test: Urine Culture Specimen Source: Clean Catch/Voided Specimen Type: Urine Specimen Date: 08/30/2025 1242 Result Date: 09/01/2025 1215 Result Status: Final result Abnormal: Yes Resulting Lab: [facility] [id number] [place] [address] CULTURE 20,000 - 80,000 CFU/mL Escherichia coli (Abnormal) SUSCEPTIBILITY Escherichia coli METHOD MICROSCAN AMPICILLIN <=8.000 ug/ml Susceptible CEFAZOLIN <=2 ug/ml Susceptible CEFAZOLIN (UNCOMPLICATED UTIS ONLY) <=2 ug/ml Susceptible CIPROFLOXACIN <=0.250 ug/ml Susceptible GENTAMICIN <=2.000 ug/ml Susceptible LEVOFLOXACIN <=0.500 ug/ml Susceptible NITROFURANTOIN <=32 ug/ml Susceptible PIPERACILLIN/TAZOBACTAM <=8.000 ug/ml Susceptible TRIMETHOPRIM/SULFAMETHOXAZOLE <=0.5/9.5 ug/ml SusceptibleAbHolzer Medical Center – JacksonComment on above:Performed By: #### 2341-6 #### HEAVEN Goyal ([id number]) [facility] ([facility]) [id number] [place], [place] [address]Basic metabolic 2000 panelon [id number] gap [Moles/Vol] 22 mmol/LHigh10 - 20 mmol/[facility] HospitalCalcium [Mass/Vol] 7.9 mg/dLLow8.6 - 10.6 mg/dLUnAshtabula County Medical CenterChloride [Moles/Vol]90 mmol/LLow98 - 107 mmol/[facility] HospitalCO2 [Moles/Vol]18 mmol/LLow21 - 32 mmol/[facility] HospitalCreatinine [Mass/Vol]6.23 mg/dLHigh0.50 - 1.05 mg/dLUnAshtabula County Medical Center GFR/1.73 sq M.predicted among non-blacks MDRD (S/P/Bld) [Vol rate/Area]8 mL/min/{1.73_m2}Low- PINFUniHolzer Medical Center – JacksonGlucose [Mass/Vol]217 mg/rAHymq42 - 99 mg/dLUnAshtabula County Medical CenterInterpretation and review of laboratory resultsAbnoHolzer Medical Center – JacksonPotassium [Moles/Vol]3.7 mmol/L3.5 - 5.3 mmol/[facility] HospitalSodium [Moles/Vol]126 mmol/ZQgk551 - 145 mmol/[facility] HospitalUrea nitrogen [Mass/Vol]68 mg/dLHigh6 - 23 mg/dLSelect Medical [facility] Clinic Rehabilitation Hospital, Edwin ShawAnion gap [Moles/Vol]22 mmol/LEwag64-58 [facility] HospitalComment on above:Performed By: #### 2777-1 #### HEAVEN Goyal ([id number]) [facility] ([facility]) [id number] [place] [address] 06878Oigjmnj [Mass/Vol]7.9 mg/dLLow8.6-10.6UnTuscarawas HospitalComment on above:Performed By: #### 2777-1 #### HEAVEN Goyal ([id number]) [facility] ([facility]) [id number] [place] [address] 50454Zwaibjji [Moles/Vol]90 mmol/ONeg53-393ZpmoqlmdahTuscarawas HospitalComment on above:Performed By: #### 2777-1 #### HEAVEN Goyal ([id number]) [facility] ([facility]) [id number] [place] [address] 22666SM4 [Moles/Vol]18 mmol/UJlr67-80UgjgzzqnhbPremier Health Miami Valley HospitalComment on above:Performed By: #### 2777-1 #### HEAVEN Goyal ([id number]) [facility] ([facility]) [id number] [place] [address] 31785Aliarrnhsd [Mass/Vol]6.23 mg/dLHigh0.50-1.05UnTuscarawas HospitalComment on above:Performed By: #### 2777-1 #### HEAVEN Goyal ([id number]) [facility] ([facility]) [id number] [place] [address] 78319Tnwxaemaht filtration rate8 mL/min/1.73m*2Low>60UnTuscarawas HospitalComment on above:Result Comment: Calculations of estimated GFR are performed using the 2020 CKD-EPI Study Refit equation without the race variable for the IDMS-Traceable creatinine methods. https://jasn.asnjournals.org/content//ASN.7023009345Waczaqyai By: #### 2777-1 #### HEAVEN Goyal ([id number]) [facility] ([facility]) [id number] [place] [address] 12621Ljnwcrt [Mass/Vol]217 mg/fODehs59-99LciavfzfsiTuscarawas HospitalComment on above:Performed By: #### 2777-1 #### HEAVEN Goyal ([id number]) [facility] ([facility]) [address] [place] [address] 89253Jhrqcdjbf [Moles/Vol]3.7 mmol/LNormal3.5-5.3[facility] HospitalComment on above:Performed By: #### 2777-1 #### HEAVEN Goyal ([id number]) [facility] ([facility]) [id number] [place] [address] 23084Rcipdw [Moles/Vol]126 mmol/IDfz051-497VycenobypfTuscarawas HospitalComment on above:Performed By: #### 2777-1 #### HEAVEN Goyal ([id number]) [facility] ([facility]) [address] [place] [address] 10720Pglc nitrogen [Mass/Vol]68 mg/dLHigh6-23[facility] HospitalComment on above:Performed By: #### 2777-1 #### HEAVEN Goyal ([id number]) [facility] ([facility]) [id number] [place] [address] 10545WKX W Auto Differential panel (Bld)on 09-69-1664Wwpgiktgg (Bld) [#/Vol]0.04 10*3/[facility] CampusBasophils/100 WBC (Bld)0.3 %0.0 - 2.0 %[facility] HospitalEosinophils (Bld) [#/Vol] 0.05 10*3/[facility] CampusEosinophils/100 WBC (Bld)0.4 %0.0 - 6.0 %[facility] HospitalErythrocyte distribution width (RBC) [Ratio]12.8 %11.5 - 14.5 %[facility] HospitalHematocrit (Bld) [Volume fraction]30.3 %Low36.0 - 46.0 %[facility] Hemoglobin (Bld) [Mass/Vol]9.9 g/dLLow12.0 - 16.0 g/dLUnAshtabula County Medical CenterImputnam county memorial hospital granulocytes (Bld) [#/Vol]0.22 10*3/[facility] granulocytes/100 WBC (Bld)1.6 %High0.0 - 0.9 %[facility] HospitalInterpretation and review of laboratory resultsAbnormal [facility] HospitalLymphocytes (Bld) [#/Vol]1.61 10*3/[facility] CampusLymphocytes/100 WBC (Bld)11.4 %13.0 - 44.0 %[facility] HospitalH (RBC) [Entitic mass]28.5 pg26.0 - 34.0 pgUnSouthview Medical CenterHC (RBC) [Mass/Vol]32.7 g/dL32.0 - 36.0 g/dLAdams County HospitalV (RBC) [Entitic vol]87 fL80 - 100 fLUniHolzer Medical Center – JacksonMonocytes (Bld) [#/Vol]1.12 10*3/[facility] CenterMonocytes/100 WBC (Bld)7.9 %2.0 - 10.0 %[facility] HospitalNeutrophils (Bld) [#/Vol]11.13 10*3/[facility] Medical CenterNeutrophils/100 WBC (Bld)78.4 %40.0 - 80.0 %[facility] HospitalNucleated RBC/100 WBC (Bld) [Ratio]0.0 %[facility] HospitalPlatelets (Bld) [#/Vol]249 10*3/[facility] CampusRBC (Bld) [#/Vol]3.47 10*6/[facility] Medical CenterWBC (Bld) [#/Vol]14.2 10*3/[facility] Medical CenterUnAshtabula County Medical CenterBasophils (Bld) [#/Vol]0.04 x10*3/uLNormal0.00-0.10 [facility] HospitalComment on above:Performed By: #### 2777-1 #### HEAVEN Goyal ([id number]) [facility] ([facility]) [id number] [place] [address] 48295Lekghlmsm/100 WBC (Bld)0.3 %Normal0.0-2.0UnTuscarawas HospitalComment on above:Performed By: #### 2777-1 #### HEAVEN Goyal ([id number]) [facility] ([facility]) [id number] [place] [address] 23767Kisxmcpqqhr (Bld) [#/Vol]0.05 x10*3/uLNormal0.00-0.70 [facility] HospitalComment on above:Performed By: #### 2777-1 #### HEAVEN Goyal ([id number]) [facility] ([facility]) [id number] [place] [address] 78002Brnoozojdya/100 WBC (Bld)0.4 %Normal0.0-6.0UnTuscarawas HospitalComment on above:Performed By: #### 2777-1 #### HEAVEN Goyal ([id number]) [facility] ([facility]) [id number] [place] [address] 80624Wxderoidfgn distribution width (RBC) [Ratio]12.8 %Normal 11.5-14.5UnTuscarawas HospitalComment on above:Performed By: #### 2777-1 #### HEAVEN Goyal ([id number]) [facility] ([facility]) [id number] [place] [address] 32507Odvfefgajn (Bld) [Volume fraction]30.3 %Low36.0-46.0 [facility] HospitalComment on above:Performed By: #### 2777-1 #### HEAVEN Goyal ([id number]) [facility] ([facility]) [address] [place], [place] [address]Avubdspmuv (Bld) [Mass/Vol]9.9 g/dLLow12.0-16.0[facility] HospitalComment on above:Performed By: #### 2777-1 #### HEAVEN Goyal ([id number]) [facility] ([facility]) [address] [place], [place] [address]Tglplofa granulocytes (Bld) [#/Vol]0.22 x10*3/uLNormal 0.00-0.70[facility] HospitalComment on above:Performed By: #### 2777-1 #### HEAVEN Goyal ([id number]) [facility] ([facility]) [address] [place], [place] [address]Nxcxejhx granulocytes/100 WBC (Bld)1.6 %High0.0-0.9UnTuscarawas HospitalComment on above:Result Comment: Immature Granulocyte Count (IG) includes promyelocytes, myelocytes and metamyelocytes but does not include bands. Percent differential counts (%) should be interpreted in the context of the absolute cell counts (cells/UL).Performed By: #### 2777-1 #### HEAVEN Goyal ([id number]) [facility] ([facility]) [address] [place], [place] [address]Micneitfbgr (Bld) [#/Vol]1.61 x10*3/uLNormal1.20-4.80 [facility] HospitalComment on above:Performed By: #### 2777-1 #### HEAVEN Goyal ([id number]) [facility] ([facility]) [address] [place], [place] [address]Hdblnczfasy/100 WBC (Bld)11.4 %Cfrsvr43.0-44.0[facility] HospitalComment on above:Performed By: #### 2777-1 #### HEAVEN Goyal ([id number]) [facility] ([facility]) [address] [place], [place] [address]ZLX (RBC) [Entitic mass]28.5 zzVbliwa97.0-34.0UnTuscarawas HospitalComment on above:Performed By: #### 2777-1 #### HEAVEN Goyal (85642) [facility] ([facility]) [address] [place], [place] [address]TRCQ (RBC) [Mass/Vol]32.7 g/rSFiepeu78.0-36.0UnTuscarawas HospitalComment on above:Performed By: #### 2777-1 #### HEAVEN Goyal ([id number]) [facility] ([facility]) [address] [place], [place] [address]IQM (RBC) [Entitic vol]87 iIBxuhnj61-956DofpgbocrfTuscarawas HospitalComment on above:Performed By: #### 2777-1 #### HEAEVN Goyal ([id number]) [facility] ([facility]) [address] [place], [place] [address]Kntcpbook (Bld) [#/Vol]1.12 x10*3/uLHigh0.10-1.00UnTuscarawas HospitalComment on above:Performed By: #### 2777-1 #### HEAVEN Goyal (67280) [facility] ([facility]) [address] [place], [place] [address]Odgpcmaue/100 WBC (Bld)7.9 %Normal2.0-10.0UnTuscarawas HospitalComment on above:Performed By: #### 2777-1 #### HEAVEN Goyal (31996) [facility] ([facility]) [address] [place], [place] [address]Xppbwkcjbpi (Bld) [#/Vol]11.13 x10*3/uLHigh1.20-7.70 [facility] HospitalComment on above:Result Comment: Percent differential counts (%) should be interpreted in the context of the absolute cell counts (cells/uL).Performed By: #### 2777-1 #### HEAVEN Goyal ([id number]) [facility] ([facility]) [address] [place], [place] [address]Hswuuzxhgvj/100 WBC (Bld)78.4 %Zcnjhn83.0-80.0[facility] HospitalComment on above:Performed By: #### 2777-1 #### HEAVEN Goyal ([id number]) [facility] ([facility]) [address] [place] [address]Zeltgvdon RBC/100 WBC (Bld) [Ratio]0.0 /100 WBCsNormal0.0-0.0 [facility] HospitalComment on above:Performed By: #### 2777-1 #### HEAVEN Goyal (35398) [facility] ([facility]) [address] [place] [address] 388[address]Qdwaqpmpx (Bld) [#/Vol]249 x10*3/wQKumteo781-153FwgbyohsdcTuscarawas HospitalComment on above:Performed By: #### 2777-1 #### HEAVEN Goyal ([id number]) [facility] ([facility]) [address] [place] [address] 362[address]RCK (Bld) [#/Vol]3.47 x10*6/uLLow4.00-5.20UnTuscarawas HospitalComment on above:Performed By: #### 2777-1 #### HEAVEN Goyal ([id number]) [facility] ([facility]) [address] [place] [address] 54[address]DCA (Bld) [#/Vol]14.2 x10*3/uLHigh4.4-11.3[facility] HospitalComment on above:Performed By: #### 2777-1 #### HEAVEN Goyal ([id number]) [facility] ([facility]) [address] [place] [address] 79[address]Reoltdozdtp surface inducedon 54-11-4617rVDM Coag (PPP) [Time]25 qVxd07-13SiouqsbkuzTuscarawas HospitalComment on above: Order Comment: Less than 99th percentile of normal range [...] performed using a different testing methodology at [facility] than at other [facility]. Direct result comparisons should only be made within the same method.Performed By: #### 45587-0 #### HEAVEN Goyal (05889) [facility] ([facility]) [address] [place] [address] 72804Lelgwhanogd tissue factor inducedon 01-32-0413QE Coag (PPP) [Time]11.8 sNormal9.8-12.4[facility] HospitalComment on above:Order Comment: Less than 99th percentile of normal range [...] performed using a different testing methodology at [facility] than at other [facility]. Direct result comparisons should only be made within the same method.Performed By: #### 08687-1 #### HEAVEN Goyal ([id number]) [facility] ([facility]) [address] [place] [address] 47772SNHG SCREEN,URINEon 81-07-9831Oiuibrrgbsdj Screen Ql (U) NegativeNormalPresumptive NegativePremier Health [facility] Hospital Comment on above:Order Comment: Drug screen results are presumptive and should not be used to assesscompliance with prescribed medication. Contact the performing [facility] laboratoryto add-on definitive confirmatory testing if clinically indicated.Toxicology screening results are reported qualitatively. The concentration must???be greater than or equal to the cutoff to be reported as positive. The concentrationat which the screening test can detect an individual drug or metabolite varies.The absence of expected drug(s) and/or drug metabolite(s) may indicate non-compliance,inappropriate timing of specimen collection relative to drug administration, poor drugabsorption, diluted/adulterated urine, or limitations oftesting. For medical purposesonly; not valid for forensic use.Interpretive questions should be directed to the laboratory medical directors.Result Comment: CUTOFF LEVEL: 500 NG/ML Cross-reactivity has been reported with high concentrations of the following drugs: buproprion, chloroquine, chlorpromazine, ephedrine, mephentermine, fenfluramine, phentermine, phenylpropanolamine, pseudoephedrine, and propranolol.Performed By: #### 2777-1 #### HEAVEN Goyal ([id number]) [facility] ([facility]) [address] [place], [place] [address]Barbiturates Screen Ql (U)NegativeNormalPresumptive Negative [facility] HospitalComment on above:Order Comment: Drug screen results are presumptive and should not be used to assesscompliance with prescribed medication. Contact the performing [facility] laboratoryto add-on definitive confirmatory testing if clinically indicated.Toxicology screening results are reported qualitatively. The concentration must???be greater than or equal to the cutoff to be reported as positive. The concentrationat which the screening test can detect an individual drug or metabolite varies.The absence of expected drug(s) and/or drug metabolite(s) may indicate non- compliance,inappropriate timing of specimen collection relative to drug administration, poor drugabsorption, diluted/adulterated urine, or limitations oftesting. For medical purposesonly; not valid for forensic use.Interpretive questions should be directed to the laboratory medical directors.Result Comment: CUTOFF LEVEL: 200 NG/MLPerformed By: #### 2777-1 #### HEAVEN PANDAMOTZER L ([id number]) [facility] ([facility]) [address] [place] [address] 347[address]Dimftcneawououz Ql (U)PositiveAbnormalPresumptive Negative [facility] HospitalComment on above:Order Comment: Drug screen results are presumptive and should not be used to assesscompliance with prescribed medication. Contact the performing [facility] laboratoryto add-on definitive confirmatory testing if clinically indicated.Toxicology screening results are reported qualitatively. The concentration must???be greater than or equal to the cutoff to be reported as positive. The concentrationat which the screening test can detect an individual drug or metabolite varies.The absence of expected drug(s) and/or drug metabolite(s) may indicate non- compliance,inappropriate timing of specimen collection relative to drug administration, poor drugabsorption, diluted/adulterated urine, or limitations oftesting. For medical purposesonly; not valid for forensic use.Interpretive questions should be directed to the laboratory medical directors.Result Comment: CUTOFF LEVEL: 200 NG/MLPerformed By: #### 2777-1 #### HEAVEN SCHMOTZER L ([id number]) [facility] ([facility]) [address] [place] [address] 218[address]Hoiotmfbtamsuwo Screen Ql (U)NegativeNormalPresumptive NegativePremier Health [facility] HospitalComment on above:Order Comment: Drug screen results are presumptive and should not be used to assesscompliance with prescribed medication. Contact the performing [facility] laboratoryto add-on definitive confirmatory testing if clinically indicated.Toxicology screening results are reported qualitatively. The concentration must???be greater than or equal to the cutoff to be reported as positive. The concentrationat which the screening test can detect an individual drug or metabolite varies.The absence of expected drug(s) and/or drug metabolite(s) may indicate non-compliance,inappropriate timing of specimen collection relative to drug administration, poor drugabsorption, diluted/adulterated urine, or limitations oftesting. For medical purposesonly; not valid for forensic use.Interpretive questions should be directed to the laboratory medical directors.Result Comment: CUTOFF LEVEL: 150 NG/MLPerformed By: #### 2777-1 #### HEAVEN SCHMOTZER L ([id number]) [facility] ([facility]) [address] [place] [address] 912[address]Hthjbiryylfq Screen Ql (U)NegativeNormalPresumptive Negative [facility] HospitalComment on above:Order Comment: Drug screen results are presumptive and should not be used to assesscompliance with prescribed medication. Contact the performing [facility] laboratoryto add-on definitive confirmatory testing if clinically indicated.Toxicology screening results are reported qualitatively. The concentration must???be greater than or equal to the cutoff to be reported as positive. The concentrationat which the screening test can detect an individual drug or metabolite varies.The absence of expected drug(s) and/or drug metabolite(s) may indicate non- compliance,inappropriate timing of specimen collection relative to drug administration, poor drugabsorption, diluted/adulterated urine, or limitations oftesting. For medical purposesonly; not valid for forensic use.Interpretive questions should be directed to the laboratory medical directors.Result Comment: CUTOFF LEVEL: 50 NG/MLPerformed By: #### 2777-1 #### HEAVEN Goyal ([id number]) [facility] ([facility]) [address] [place] [address] 17142iiruqXOD+Norfentanyl Screen Ql (U)PositiveAbnormalPresumptive NegativePremier Health [facility] HospitalComment on above:Order Comment: Drug screen results are presumptive and should not be used to assesscompliance with prescribed medication. Contact the performing [facility] laboratoryto add-on definitive confirmatory testing if clinically indicated.Toxicology screening results are reported qualitatively. The concentration must???be greater than or equal to the cutoff to be reported as positive. The concentrationat which the screening test can detect an individual drug or metabolite varies.The absence of expected drug(s) and/or drug metabolite(s) may indicate non-compliance,inappropriate timing of specimen collection relative to drug administration, poor drugabsorption, diluted/adulterated urine, or limitations oftesting. For medical purposesonly; not valid for forensic use.Interpretive questions should be directed to the laboratory medical directors.Result Comment: CUTOFF LEVEL: 5 NG/MLPerformed By: #### 2777-1 #### HEAVEN PANDAMOTZER L ([id number]) [facility] ([facility]) [address] [place], [place] [address]Fuxduqysh Screen Ql (U)NegativeNormalPresumptive Negative [facility] HospitalComment on above:Order Comment: Drug screen results are presumptive and should not be used to assesscompliance with prescribed medication. Contact the performing [facility] laboratoryto add-on definitive confirmatory testing if clinically indicated.Toxicology screening results are reported qualitatively. The concentration must???be greater than or equal to the cutoff to be reported as positive. The concentrationat which the screening test can detect an individual drug or metabolite varies.The absence of expected drug(s) and/or drug metabolite(s) may indicate non- compliance,inappropriate timing of specimen collection relative to drug administration, poor drugabsorption, diluted/adulterated urine, or limitations oftesting. For medical purposesonly; not valid for forensic use.Interpretive questions should be directed to the laboratory medical directors.Result Comment: CUTOFF LEVEL: 150 NG/ML The metabolite X-gaqaj-eaxnilumnksxti (LAAM) is not detected by this method in concentrations that would be found in the urine of patients on LAAM therapy.Performed By: #### 2777-1 #### HEAVEN Goyal ([id number]) [facility] ([facility]) [address] [place], [place] [address]Ydprljj Screen Ql (U)PositiveAbnormalPresumptive Negative [facility] HospitalComment on above:Order Comment: Drug screen results are presumptive and should not be used to assesscompliance with prescribed medication. Contact the performing [facility] laboratoryto add-on definitive confirmatory testing if clinically indicated.Toxicology screening results are reported qualitatively. The concentration must???be greater than or equal to the cutoff to be reported as positive. The concentrationat which the screening test can detect an individual drug or metabolite varies.The absence of expected drug(s) and/or drug metabolite(s) may indicate non- compliance,inappropriate timing of specimen collection relative to drug administration, poor drugabsorption, diluted/adulterated urine, or limitations oftesting. For medical purposesonly; not valid for forensic use.Interpretive questions should be directed to the laboratory medical directors.Result Comment: CUTOFF LEVEL: 300 NG/ML The opiate screen does not detect fentanyl, meperidine, or tramadol. Oxycodone is not consistently detected (refer to Oxycodone Screen, Urine result).Performed By: #### 2777-1 #### HEAVEN Goyal ([id number]) [facility] ([facility]) [address] [place], [place] [address]xbbQSRBAR+oxyMORphone Screen Ql (U)PositiveAbnormal Presumptive NegativePremier Health Miami Valley HospitalComment on above:Order Comment: Drug screen results are presumptive and should not be used to assesscompliance with prescribed medication. Contact the performing [facility] laboratoryto add-on definitive confirmatory testing if clinically indicated.Toxicology screening results are reported qualitatively. The concentration must???be greater than or equal to the cutoff to be reported as positive. The concentrationat which the screening test can detect an individual drug or metabolite varies.The absence of expected drug(s) and/or drug metabolite(s) may indicate non-compliance,inappropriate timing of specimen collection relative to drug administration, poor drugabsorption, diluted/adulterated urine, or limitations oftesting. For medical purposesonly; not valid for forensic use.Interpretive questions should be directed to the laboratory medical directors.Result Comment: CUTOFF LEVEL: 100 NG/ML This test will accurately detect both oxycodone and oxymorphone.Performed By: #### 2777-1 #### HEAVEN Goyal ([id number]) [facility] ([facility]) [address] [place] [address] 82719Blxallepnlknd Ql (U)NegativeNormalPresumptive Negative [facility] HospitalComment on above:Order Comment: Drug screen results are presumptive and should not be used to assesscompliance with prescribed medication. Contact the performing [facility] laboratoryto add-on definitive confirmatory testing if clinically indicated.Toxicology screening results are reported qualitatively. The concentration must???be greater than or equal to the cutoff to be reported as positive. The concentrationat which the screening test can detect an individual drug or metabolite varies.The absence of expected drug(s) and/or drug metabolite(s) may indicate non- compliance,inappropriate timing of specimen collection relative to drug administration, poor drugabsorption, diluted/adulterated urine, or limitations oftesting. For medical purposesonly; not valid for forensic use.Interpretive questions should be directed to the laboratory medical directors.Result Comment: CUTOFF LEVEL: 25 NG/ML Cross-reactivity has been reported with dextromethorphan.Performed By: #### 2777-1 #### HEAVEN Goyal ([id number]) [facility] ([facility]) [address] [place], [place] [id number] Screen, Urineon 32-62-7418Mckpzlxgxkmh Screen Ql (U) NegativePresumptive [facility] CenterBarbiturates Screen Ql (U)NegativePresumptive [facility] Benzodiazepines Ql (U)PositiveAbnormalPresumptive [facility] CenterBenzoylecgonine Screen Ql (U)NegativePresumptive [facility] CenterCannabinoids Screen Ql (U)NegativePresumptive Negative [facility] HospitalfentaNYL+Norfentanyl Screen Ql (U)Positive AbnormalPresumptive [facility] CenterInterpretation and review of laboratory resultsAbnoalUniHolzer Medical Center – JacksonMethadone Screen Ql (U)NegativePresumptive [facility] Opiates Screen Ql (U)PositiveAbnormalPresumptive [facility] CenteroxyCODONE+oxyMORphone Screen Ql (U)PositiveAbnormalPresumptive [facility] CenterPhencyclidine Ql (U)NegativePresumptive [facility] Medical CenterUnFostoria City HospitalECG 12-LEADon 45-55-4254PCP 12-LEADVentricular Rate 69 Atrial Rate 83 P-R Interval 296 QRS Duration 106 Q-T Interval 454 QTC Calculation(Bazett) 486 R Pigeon 41 T Pigeon 127 QRS Count 11 Q Onset 218 T Offset 445 QTC Fredericia 475 Diagnosis Age and gender specific ECG analysis Sinus rhythm with marked sinus arrhythmia with 1st degree AV block 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) Inferior injury pattern ACUTE [place] Abnormal ECG When compared with ECG of 29-AUG-2025 06:20, QRS duration has increased QT has lengthened Confirmed by Elia Connell ([id number]) on 08/30/2025 7:50:04 PMNNew Ulm Medical CenterELECTROLYTE PANEL, URINEon 05-42-4784Szjvjcdk (U) [Moles/Vol] mmol/LNormalPremier Health Miami Valley HospitalComment on above: Performed By: #### 2777-1 #### HEAVEN Goyal ([id number]) [facility] ([facility]) [address] [place] [address] 91768QEBKZIBJ/CREATININE (MMOL/G) IN URINENormalUniversGalion Community HospitalComment on above:Result Comment: One or more analytes used in this calculation is outside of the analytical measurement range. Calculation cannot be performed.Performed By: #### 2777-1 #### HEAVEN Goyal ([id number]) [facility] ([facility]) [address] [place] [address] 91580Lqfkaweccb (U) [Mass/Vol]150.1 mg/wVNajbmx46.0-320.0 [facility] HospitalComment on above:Performed By: #### 2777-1 #### HEAVEN Goyal ([id number]) [facility] ([facility]) [address] [place] [address] 87993Rhkzrgboz (U) [Moles/Vol]64 mmol/LNMercy Health Willard HospitalComment on above:Performed By: #### 2777-1 #### HEAVEN Goyal ([id number]) [facility] ([facility]) [address] [place] [address] 63917Pchbvlate/Creatinine (U) [Ratio]43 mmol/g CreatNormalNot Kettering Health MiamisburgComment on above: Performed By: #### 2777-1 #### HEAVEN Goyal ([id number]) [facility] ([facility]) [address] [place] [address] 39984Tpthoy (U) [Moles/Vol]16 mmol/LNMercy Health Willard HospitalComment on above:Performed By: #### 2777-1 #### HEAVEN Goyal ([id number]) [facility] ([facility]) [address] [place] [address] 75036Vnmfvz/Creatinine (U) [Ratio]11 mmol/g CreatNormalNot establishedPremier Health Miami Valley HospitalComment on above: Performed By: #### 2777-1 #### HEAVEN Goyal ([id number]) [facility] ([facility]) [address] [place] [address] 98149Buyafbkkpxvnbzqzn, 12-lead PRN ACS symptomsOrdered By: Elia Connell on 33-13-6490Ryxqfd Gjjr07GYAYfjzfcedbiTrinity Health System East Campus Work Phone: [phone] Iavieupc266 [facility] Work Phone: [phone] Lhhcg582 [facility] Work Phone: [phone] Sxyjp95wanpaFirgszbgsyDayton VA Medical Center Work Phone: [phone] Nnvkuhbm031 [facility] Work Phone: [phone] Ljiacirg276 [facility] Work Phone: [phone] Calculation(Bazett)486 [facility] Work Phone: [phone] Bkhxdxnegg254 [facility] Work Phone: [phone] Rzzn85xdudppeLawzolwkgrGeorgetown Behavioral Hospital Work Phone: [phone] Cmpu830zccbnyrZeatkqwgdwGeorgetown Behavioral Hospital Work Phone: [phone] Xibpdl044 [facility] Work Phone: [phone] Pnoy36CKUOiolsuvbrqTrinity Health System East Campus Work Phone: [phone] Work Phone: [phone], 12-lead PRN ACS symptomson 87-63-7031PHVAXekeubvdliDayton VA Medical Center Work Phone: [phone] Test strip manual (Bld) [Mass/Vol]on 15-20-8207Vmjbbsp [Mass/Vol]296 mg/tDBeew45 - 99 mg/dLGreen Cross HospitalInterpretation and review of laboratory resultsAbnormalUniversity Hospitals Newman Memorial Hospital – ShattuckGlucose [Mass/Vol]296 mg/dQVhpm51-60StyngbghktTuscarawas HospitalComment on above: Performed By: #### 64673-1 #### HEAVEN Goyal ([id number]) [facility] ([facility]) [address] [place] [address] 77976Klswgpv [Mass/Vol]301 mg/aVEqpd41 - 99 mg/dLUnAshtabula County Medical CenterInterpretation and review of laboratory resultsAbWayne HealthCare Main CampusUnAshtabula County Medical CenterGlucose [Mass/Vol]301 mg/jASewp42-80DltkeulnvyTuscarawas HospitalComment on above:Performed By: #### 02384-9 #### HEAVEN Goyal ([id number]) [facility] ([facility]) [address] [place] [address] 05698Gagukyp [Mass/Vol]222 mg/rHZylr64 - 99 mg/dLGreen Cross HospitalInterpretation and review of laboratory resultsAbnoRiverview Health InstituteUnAshtabula County Medical CenterGlucose [Mass/Vol]222 mg/oKKgbq18-12DlhznexycwTuscarawas HospitalComment on above:Performed By: #### 72125-5 #### HEAVEN Goyal ([id number]) [facility] ([facility]) [address] [place] [address] 44927Qsutmne [Mass/Vol]219 mg/sBYsab69 - 99 mg/dLGreen Cross HospitalInterpretation and review of laboratory resultsAbWayne HealthCare Main CampusUnAshtabula County Medical CenterGlucose [Mass/Vol]219 mg/lLLmqy95-01GppkyaebvgTuscarawas HospitalComment on above:Performed By: #### 2777-1 #### HEAVEN Goyal ([id number]) [facility] ([facility]) [address] [place] [address] 49154Nylmpyj Assayon 87-06-0416Ozrtvwf unfractionated Chromogenic method Qn (PPP)0.1See Comment Below for Therapeutic Ranges IU/mLUnAshtabula County Medical CenterHeparin unfractionated Chromogenic method Qn (PPP)on 49-38-8007Hwsouregsjiobh and review of laboratory resultsNormalUniHolzer Medical Center – JacksonUnAshtabula County Medical CenterUnAshtabula County Medical CenterHeparin.unfractionatedon 75-98-2796Jixtsmt unfractionated Chromogenic method Qn (PPP)0.1 IU/mLNormalSee Comment Below for Therapeutic RangesUnTuscarawas HospitalComment on above:Order Comment: Less than 99th percentile of normal range [...] performed using a different testing methodology at [facility] than at other [facility]. Direct result comparisons should only be made within the same method.Performed By: #### 74872-6 #### HEAVEN Goyal ([id number]) [facility] ([facility]) [address] [place], [place] [address]Hepatic function 2000 panelon 46-91-0609Aqzvjfs BCP dye [Mass/Vol]3.4 g/dL3.4 - 5.0 g/dLUnAshtabula County Medical CenterALP [Catalytic activity/Vol]116 U/LHigh33 - 110 U/[facility] HospitalALT With P-5'-P [Catalytic activity/Vol]20 U/L7 - 45 U/[facility] AST With P-5'-P [Catalytic activity/Vol]29 U/L9 - 39 U/[facility] HospitalBilirubin [Mass/Vol]0.7 mg/dL0.0 - 1.2 mg/dLUnAshtabula County Medical CenterBilirubin.direct [Mass/Vol]0.0 mg/dL0.0 - 0.3 mg/dLUnAshtabula County Medical CenterInterpretation and review of laboratory resultsAbnoHolzer Medical Center – JacksonProtein [Mass/Vol]6.6 g/dL6.4 - 8.2 g/dLUnAshtabula County Medical CenterUnAshtabula County Medical CenterAlbumin BCP dye [Mass/Vol]3.4 g/dLNormal3.4-5.0[facility] Comment on above:Performed By: #### 2777-1 #### HEAVEN Goyal ([id number]) [facility] ([facility]) [address] [place], [place] [address]RZE [Catalytic activity/Vol]116 U/HNkkz77-660DmsnjqflbrTuscarawas HospitalComment on above:Performed By: #### 2777-1 #### HEAVEN Goyal ([id number]) [facility] ([facility]) [address] [place] [address] [phone] With P-5'-P [Catalytic activity/Vol]20 U/LNormal7-45 [facility] HospitalComment on above:Result Comment: Patients treated with Sulfasalazine may generate falsely decreased results for ALT.Performed By: #### 2777-1 #### HEAVEN Goyal ([id number]) [facility] ([facility]) [id number] [place] [address] 83789ENR With P-5'-P [Catalytic activity/Vol]29 U/LNormal9-39 [facility] HospitalComment on above:Performed By: #### 2777-1 #### HEAVEN Goyal ([id number]) [facility] ([facility]) [address] [place] [address] 78060Bifnartkj [Mass/Vol]0.7 mg/dLNormal0.0-1.2[facility] HospitalComment on above:Performed By: #### 2777-1 #### HEAVEN Goyal ([id number]) [facility] ([facility]) [address] [place] [address] 84423Yzpljgwfh.direct [Mass/Vol]0.0 mg/dLNormal0.0-0.3UnTuscarawas HospitalComment on above:Performed By: #### 2777-1 #### HEAVEN Goyal ([id number]) [facility] ([facility]) [address] [place] [address] 76783Icraqsn [Mass/Vol]6.6 g/dLNormal6.4-8.2UnTuscarawas HospitalComment on above:Performed By: #### 2777-1 #### HEAVEN Goyal ([id number]) [facility] ([facility]) [address] [place] [address] 12974Kyuvrtizpty 30-17-1863Kaodhrdnj [Mass/Vol]2.43 mg/dLHigh1.60 - 2.40 mg/dLGreen Cross HospitalMagnesium [Mass/Vol]2.43 mg/dLHigh 1.60-2.40UnTuscarawas HospitalComment on above:Performed By: #### 2777-1 #### HEAVEN Goyal ([id number]) [facility] ([facility]) [address] [place] [address] 21176Tehconkyz [Mass/Vol]on 15-13-6465Rnktgcwzdmblan and review of laboratory resultsAbKeenan Private HospitalNo Panel Informationon 27-67-3695Lzvqeotbqignsn and review of laboratory resultsAbKeenan Private HospitalUnAshtabula County Medical CenterInterpretation and review of laboratory resultsAbKeenan Private HospitalPT Coag (PPP) [Time]on 91-77-1762XNE Coag (PPP) [Relative time]1.1 {INR}0.9 - 1.1Green Cross HospitalInterpretation and review of laboratory resultsNoHolzer Medical Center – JacksonINR Coag (PPP) [Relative time]1.6Kukfoz7.9-1.1UnTuscarawas Hospital Comment on above:Order Comment: Less than 99th percentile of normal range [...] performed using a different testing methodology at [facility] than at other [facility]. Direct result comparisons should only be made within the same method.Performed By: #### 20897-6 #### HEAVEN Goyal ([id number]) [facility] ([facility]) [address] [place] [address] 42864Yyerblcrpil 05-36-7333Fgpzujnyy [Mass/Vol]8.5 mg/dLHigh 2.5-4.9UnTuscarawas HospitalComment on above:Performed By: #### 2777-1 #### HEAVEN Goyal (11663) [facility] ([facility]) [address] [place] [address] 92253Oeowsfebp [Mass/Vol]on 09-79-8667Jjapffakrfuzml and review of laboratory resultsAbnoHolzer Medical Center – JacksonUnAshtabula County Medical CenterPhosphoruson 20-19-1429Jdvmbsnvq [Mass/Vol]8.5 mg/dLHigh2.5 - 4.9 mg/dLUnAshtabula County Medical CenterProtime-INRon 63-58-2159MT Coag (PPP) [Time]11.8 [facility] HospitalUrea Nitrogen, Urine Randomon 40-62-1485Tekg nitrogen (U) [Mass/Vol]351 mg/dLGreen Cross Hospital Urea nitrogenon 19-47-6127Awkg nitrogen (U) [Mass/Vol]351 mg/dLNoChillicothe HospitalComment on above:Performed By: #### 2777-1 #### HEAVEN Goyal ([id number]) [facility] ([facility]) [address] [place] [address] 31460Hmmj nitrogen (U) [Mass/Vol]on 50-62-5493Dtornnfqcs (U) [Mass/Vol]150.1 mg/dL20.0 - 320.0 mg/dLUnAshtabula County Medical Center Urea/Creatinine (U) [Molar ratio]2.3Not established. g/g creatUnAshtabula County Medical CenterUnAshtabula County Medical CenterUrea/Creatinine (U) [Molar ratio]2.3 g/g creatNormalNot established.[facility] HospitalComment on above:Performed By: #### 2777-1 #### HEAVEN Goyal ([id number]) [facility] ([facility]) [address] [place], [place] [address]Urinalysis complete W Reflex Culture panel (U)on 08-30-2025 Appearance (U)TurbidAbnormalClearUnAshtabula County Medical CenterBilirubin (U) [Mass/Vol]NegativeNEGATIVE mg/dLUnAshtabula County Medical CenterColor (U) Wnrhq-NzwipeRtejs-Ogzxqx, Yellow, Dark-YellowUnAshtabula County Medical Center Glucose Auto test strip (U) [Mass/Vol]30 (TRACE)AbnormalNormal mg/dLUnAshtabula County Medical CenterKetones (U) [Mass/Vol]NegativeNEGATIVE mg/dLUnAshtabula County Medical CenterLeukocyte esterase Auto test strip Ql (U)500 Claudine/uL AbnormalNEGATIVEUnAshtabula County Medical CenterNitrite Auto test strip Ql (U) NegativeNEGATIVEUnAshtabula County Medical CenterpH (U)5.5 [pH]5.0, 5.5, 6.0, 6.5, 7.0, 7.5, 8.0UnAshtabula County Medical CenterProtein (U) [Mass/Vol]50 (1+) AbnormalNEGATIVE, 10 (TRACE), 20 (TRACE) mg/dLUnAshtabula County Medical Center RBC (U) [#/Vol]0.5 (2+)AbnormalNEGATIVE mg/dLUnAshtabula County Medical Center Specific gravity (U) [Rel density]1.0261.005 - 1.035UnAshtabula County Medical CenterUrobilinogen (U) [Mass/Vol]NormalNormal mg/dLUnAshtabula County Medical CenterAppearance (U)TurbidNormalClearUnTuscarawas HospitalComment on above:Performed By: #### 88094-4 #### HEAVEN Goyal ([id number]) [facility] ([facility]) [id number] [place] [address] 70101Azynvovmd (U) [Mass/Vol]NegativeNormalNEGATIVEPremier Health Miami Valley HospitalComment on above:Performed By: #### 50227-7 #### HEAVEN Goyal ([id number]) [facility] ([facility]) [address] [place] [address] 21181Idape (U)Zsnrx-YicswlDroqysFfocl-Ppvpcc, Yellow, Dark-Yellow [facility] HospitalComment on above:Performed By: #### 74582-7 #### HEAVEN Goyal (29689) [facility] ([facility]) [address] [place] [address] 98669Epsvyey Auto test strip (U) [Mass/Vol]30 (TRACE)Abnormal NormalPremier Health Miami Valley HospitalComment on above:Performed By: #### 49557-0 #### HEAVEN Goyal ([id number]) [facility] ([facility]) [address] [place] [address] 04418Tewsgjt (U) [Mass/Vol]NegativeNormalNEGATIVEPremier Health Miami Valley HospitalComment on above:Performed By: #### 35337-5 #### HEAVEN Goyal ([id number]) [facility] ([facility]) [address] [place] [address] 02409Qjumcyfwz esterase Auto test strip Ql (U)500 Claudine/uLAbnormal NEGATIVEPremier Health Miami Valley HospitalComment on above:Performed By: #### 57133-7 #### HEAVEN Goyal (15101) [facility] ([facility]) [address] [place] [address] 06875Cnbowrc Auto test strip Ql (U)NegativeNormalNEGATIVE [facility] HospitalComment on above:Performed By: #### 67565-1 #### HEAVEN Goyal (20982) [facility] ([facility]) [address] [place] [address] 86227hA (U)5.5 [pH]Normal5.0, 5.5, 6.0, 6.5, 7.0, 7.5, 8.0 [facility] HospitalComment on above:Performed By: #### 17378-9 #### HEAVEN Goyal ([id number]) [facility] ([facility]) [address] [place] [address] 65052Tctqmwr (U) [Mass/Vol]50 (1+)AbnormalNEGATIVE, 10 (TRACE), 20 (TRACE)[facility] HospitalComment on above:Performed By: #### 78633-8 #### HEAVEN Goyal ([id number]) [facility] ([facility]) [address] [place] [address] 05699OKH (U) [#/Vol]0.5 (2+)AbnormalNEGATIVEUnTuscarawas HospitalComment on above:Performed By: #### 29177-1 #### HEAVEN Goyal ([id number]) [facility] ([facility]) [address] [place] [address] 49952Iichyegd gravity (U) [Rel density]1.498Jnhqpl5.005-1.035 [facility] HospitalComment on above:Performed By: #### 39110-3 #### HEAVEN Goyal ([id number]) [facility] ([facility]) [address] [place] [address] 46709Pxsyzdenwwbd (U) [Mass/Vol]NormalNormalNormalUniversGalion Community HospitalComment on above:Performed By: #### 25848-8 #### HEAVEN Goyal ([id number]) [facility] ([facility]) [address] [place] [address] 47991Sfxiwtlhth complete panel (U)on 09-35-3076Vxicwjbepa (U) TurbidAbnormalClearUnAshtabula County Medical CenterBilirubin (U) [Mass/Vol] NegativeNEGATIVE mg/dLUnAshtabula County Medical CenterColor (U)Light-Robertson AbnormalLight-Yellow, Yellow, Dark-YellowUnAshtabula County Medical Center Glucose Auto test strip (U) [Mass/Vol]50 (TRACE)AbnormalNormal mg/dLUnAshtabula County Medical CenterKetones (U) [Mass/Vol]NegativeNEGATIVE mg/dLUnAshtabula County Medical CenterLeukocyte esterase Auto test strip Ql (U)500 Claudine/uL AbnormalNEGATIVEUnAshtabula County Medical CenterNitrite Auto test strip Ql (U) NegativeNEGATIVEUnAshtabula County Medical CenterpH (U)5.5 [pH]5.0, 5.5, 6.0, 6.5, 7.0, 7.5, 8.0UnAshtabula County Medical CenterProtein (U) [Mass/Vol]50 (1+) AbnormalNEGATIVE, 10 (TRACE), 20 (TRACE) mg/dLUnAshtabula County Medical Center RBC (U) [#/Vol]OVER (3+)AbnormalNEGATIVE mg/dLUnAshtabula County Medical Center Specific gravity (U) [Rel density]1.0321.005 - 1.035UnAshtabula County Medical CenterUrobilinogen (U) [Mass/Vol]NormalNormal mg/dLUnAshtabula County Medical CenterUnAshtabula County Medical CenterAppearance (U)TurbidNormalClear [facility] HospitalComment on above:Order Comment: OVER is reported when the result is greater than the clinically reportable range.Performed By: #### 2777-1 #### HEAVEN Goyal (76932) [facility] ([facility]) [address] [place] [address] 63694Bkvxrfrow (U) [Mass/Vol]NegativeNormalNEGATIVEUnTuscarawas HospitalComment on above:Order Comment: OVER is reported when the result is greater than the clinically reportable range. Performed By: #### 2777-1 #### HEAVEN Goyal ([id number]) [facility] ([facility]) [address] [place] [address] 87186Ojlbd (U)Enyop-EfwohzOnlkzvAmqbz-Djvnvj, Yellow, Dark-Yellow [facility] HospitalComment on above:Order Comment: OVER is reported when the result is greater than the clinically reportable range.Performed By: #### 2777-1 #### HEAVEN Goyal ([id number]) [facility] ([facility]) [address] [place] [address] 49613Nqqhmdv Auto test strip (U) [Mass/Vol]50 (TRACE)Abnormal NormalPremier Health Miami Valley HospitalComment on above:Order Comment: OVER is reported when the result is greater than the clinically reportable range.Performed By: #### 2777-1 #### HEAVEN Goyal ([id number]) [facility] ([facility]) [id number] [place] [address] 71520Qoqobae (U) [Mass/Vol]NegativeNormalNEGATIVEPremier Health Miami Valley HospitalComment on above:Order Comment: OVER is reported when the result is greater than the clinically reportable range. Performed By: #### 2777-1 #### HEAVEN Goyal (21096) [facility] ([facility]) [address] [place] [address] 78112Ppehtdrhh esterase Auto test strip Ql (U)500 Claudine/uLAbnormal NEGATIVEPremier Health Miami Valley HospitalComment on above:Order Comment: OVER is reported when the result is greater than the clinically reportable range.Performed By: #### 2777-1 #### HEAVEN Goyal ([id number]) [facility] ([facility]) [address] [place] [address] 87072Xguqkud Auto test strip Ql (U)NegativeNormalNEGATIVE [facility] HospitalComment on above:Order Comment: OVER is reported when the result is greater than the clinically reportable range.Performed By: #### [id number] #### HEAVEN Goyal ([id number]) [facility] ([facility]) [address] [place] [address] [id number] (U)5.5 [pH]Normal5.0, 5.5, 6.0, 6.5, 7.0, 7.5, 8.0 [facility] HospitalComment on above:Order Comment: OVER is reported when the result is greater than the clinically reportable range.Performed By: #### 2777-1 #### HEAVEN Goyal ([id number]) [facility] ([facility]) [id number] [place] [address] 59432Eojtyql (U) [Mass/Vol]50 (1+)AbnormalNEGATIVE, 10 (TRACE), 20 (TRACE)[facility] HospitalComment on above:Order Comment: OVER is reported when the result is greater than the clinically reportable range.Performed By: #### 2777-1 #### HEAVEN Goyal ([id number]) [facility] ([facility]) [address] [place] [address] 26252WGN (U) [#/Vol]OVER (3+)AbnormalNEGATIVEUnTuscarawas HospitalComment on above:Order Comment: OVER is reported when the result is greater than the clinically reportable range.Performed By: #### 2777-1 #### HEAVEN Goyal ([id number]) [facility] ([facility]) [address] [place] [address] 40980Jgsktkyg gravity (U) [Rel density]1.464Sosijz6.005-1.035 [facility] HospitalComment on above:Order Comment: OVER is reported when the result is greater than the clinically reportable range.Performed By: #### 2777-1 #### HEAVEN Goyal ([id number]) [facility] ([facility]) [address] [place] [address] 36507Hnbjipbpfnjh (U) [Mass/Vol]NormalNormalNormalUniversGalion Community HospitalComment on above:Order Comment: OVER is reported when the result is greater than the clinically reportable range. Performed By: #### 2777-1 #### HEAVEN Goyal ([id number]) [facility] ([facility]) [id number] [place] [address] 16575Yjtidnbmjv microscopic panel Auto Ql (U)on 08-30-2025 Epithelial cells.squamous Auto (Urine sed) [#/Area]1-9 (SPARSE)Reference range not established. /HPFUnAshtabula County Medical CenterGranular casts Computer assisted (U) [#/Area]2+AbnormalNONE /LPFUniversIndiana University Health Bloomington HospitalRB Auto (Urine sed) [#/Area]1-2NONE, 1-2, 3-5 /HPFUnAshtabula County Medical Center WBC Auto (Urine sed) [#/Area]30-57Vksflbqx2-2, NONE /[facility] CenterEpithelial cells.squamous Auto (Urine sed) [#/Area]1-9 (SPARSE)Normal Reference range not established.[facility] Comment on above:Performed By: #### 67887-7 #### HEAVEN Goyal (93212) [facility] ([facility]) [id number] [place] [address] 29179Fvorbywv casts Computer assisted (U) [#/Area]2+ /LPFAbnormal [facility]heastern Medical CenterComment on above:Performed By: #### 49515-8 #### HEAVEN Goyal ([id number]) [facility] ([facility]) [address] [place] [address] 08043SOU Auto (Urine sed) [#/Area]1-2NormalNONE, 1-2, 3-5 [facility] HospitalComment on above:Performed By: #### 06078-7 #### HEAVEN Goyal ([id number]) [facility] ([facility]) [address] [place] [address] 48608ALH Auto (Urine sed) [#/Area]15-95Ldbkasph2-5, NONEPremier Health Miami Valley HospitalComment on above:Performed By: #### 22866-0 #### HEAVEN Goyal (09213) [facility] ([facility]) [address] [place] [address] 10053Aqrvtpbwrd cells.squamous Auto (Urine sed) [#/Area]1-9 (SPARSE)Reference range not established. /[facility] Granular casts Computer assisted (U) [#/Area]4+AbnormalNONE /LPFUDayton VA Medical CenterMucus Auto (Urine sed) [#/Area]FEWReference range not established. /[facility] Greene MemorialRB Auto (Urine sed) [#/Area] >20AbnormalNONE, 1-2, 3-5 /[facility] Medical CenterWBC Auto (Urine sed) [#/Area]>60Tpvcuugf5-5, NONE /[facility] Epithelial cells.squamous Auto (Urine sed) [#/Area]1-9 (SPARSE)NormalReference range not established.[facility] HospitalComment on above:Performed By: #### 78701-2 #### HEAVEN Goyal (04406) [facility] ([facility]) [id number] [place] [address] 02445Cebautfp casts Computer assisted (U) [#/Area]4+ /LPFAbnormal [facility] Medical CenterComment on above:Performed By: #### 46549-4 #### HEAVEN Goyal (29870) [facility] ([facility]) [address] [place] [address] 00284Xlhzu Auto (Urine sed) [#/Area]FEWNormalReference range not established.[facility] HospitalComment on above: Performed By: #### 43047-7 #### HEAVEN Goyal ([id number]) [facility] ([facility]) [address] [place] [address] 26671QND Auto (Urine sed) [#/Area]>20AbnormalNONE, 1-2, 3-5 [facility] HospitalComment on above:Performed By: #### 79151-4 #### HEAVEN Goyal (83086) [facility] ([facility]) [address] [place] [address] 21774DTB Auto (Urine sed) [#/Area]>04Rvshpdqv2-2, NONEPremier Health Miami Valley HospitalComment on above:Performed By: #### 65112-9 #### HEAVEN Goyal ([id number]) [facility] ([facility]) [address] [place] [address] 45749Mybgr electrolyteson 62-32-9530Vavhujqx (U) [Moles/Vol]mmol/L mmol/LUnAshtabula County Medical CenterChloride/Creatinine RatioGreen Cross HospitalCreatinine (U) [Mass/Vol]150.1 mg/dL20.0 - 320.0 mg/dL Green Cross HospitalPotassium (U) [Moles/Vol]64 mmol/[facility] HospitalPotassium/Creatinine (U) [Ratio]43Not established mmol/g CreOhioHealth Hardin Memorial HospitalSodium (U) [Moles/Vol]16 mmol/[facility] HospitalSodium/Creatinine (U) [Ratio]11Not established. mmol/g CreOhioHealth Hardin Memorial HospitalUnAshtabula County Medical CenteraPTT - baselineon 78-84-6802cEEX Coag (PPP) [Time]25 sLowUnRegional Medical Center Coag (PPP) [Time]on 41-19-3249Yrcpdabawmpbsg and review of laboratory resultsAbnoMercy Health Kings Mills HospitalBasic metabolic 2000 panelon 50-28-3946Ufzxn gap [Moles/Vol]20 mmol/L10 - 20 mmol/[facility] HospitalCalcium [Mass/Vol]8.1 mg/dL Low8.6 - 10.6 mg/dLUnAshtabula County Medical CenterChloride [Moles/Vol]93 mmol/LLow98 - 107 mmol/[facility] HospitalCO2 [Moles/Vol]22 mmol/L21 - 32 mmol/[facility] HospitalCreatinine [Mass/Vol]6.40 mg/dLHigh0.50 - 1.05 mg/dLUnAshtabula County Medical CenterGFR/1.73 sq M.predicted among non-blacks MDRD (S/P/Bld) [Vol rate/Area]7 mL/min/{1.73_m2}Low - PINFUniHolzer Medical Center – JacksonGlucose [Mass/Vol]220 mg/aASaxs81 - 99 mg/dLUnAshtabula County Medical CenterInterpretation and review of laboratory resultsAbnoHolzer Medical Center – JacksonPotassium [Moles/Vol]4.1 mmol/L 3.5 - 5.3 mmol/[facility] HospitalSodium [Moles/Vol]131 mmol/LLow 136 - 145 mmol/[facility] HospitalUrea nitrogen [Mass/Vol]62 mg/dLHigh6 - 23 mg/dLUnWilson HealthAnion gap [Moles/Vol]20 mmol/KGyrwht87-24PcwfbnidvjTuscarawas HospitalComment on above:Performed By: #### 28404-7 #### HEAVEN Goyal ([id number]) [facility] ([facility]) [id number] [place] [address] 86737Soopnty [Mass/Vol]8.1 mg/dLLow8.6-10.6[facility] HospitalComment on above:Performed By: #### 39242-0 #### HEAVEN PANDAMODAMIÁN L ([id number]) [facility] ([facility]) [address] [place] [address] 52293Efsexwjq [Moles/Vol]93 mmol/PNfn73-996YprasanqnwTuscarawas HospitalComment on above:Performed By: #### 07392-3 #### HEAVEN Goyal (10483) [facility] ([facility]) [address] [place] [address] 31731MB5 [Moles/Vol]22 mmol/VYiuiuv33-09VoiazlurkqTuscarawas HospitalComment on above:Performed By: #### 66144-4 #### HEAVEN Goyal ([id number]) [facility] ([facility]) [address] [place] [address] 35745Oxpkbckfiz [Mass/Vol]6.40 mg/dLHigh0.50-1.05UnTuscarawas HospitalComment on above:Performed By: #### 57355-6 #### HEAVEN PHILIP L ([id number]) [facility] ([facility]) [address] [place] [address] 78680Qlxtodegan filtration rate7 mL/min/1.73m*2Low>60UnTuscarawas HospitalComment on above:Result Comment: Calculations of estimated GFR are performed using the 2020 CKD-EPI Study Refit equation without the race variable for the IDMS-Traceable creatinine methods. https://jasn.asnjournals.org/content//ASN.5744244373Mxihnicwe By: #### 24280-2 #### HEAVEN Goyal (57486) [facility] ([facility]) [address] [place], [place] [address]Keayqve [Mass/Vol]220 mg/jTEpie65-33EvcejlvgrhPremier Health Miami Valley HospitalComment on above:Performed By: #### 40849-5 #### HEAVEN Goyal (20606) [facility] ([facility]) [address] [place] [address] 20889Zlkgnxtaf [Moles/Vol]4.1 mmol/LNormal3.5-5.3[facility] HospitalComment on above:Performed By: #### 12689-7 #### HEAVEN Goyal (55648) [facility] ([facility]) [address] [place] [address] 69281Sllirs [Moles/Vol]131 mmol/HYdj749-558UqxvastkhrTuscarawas HospitalComment on above:Performed By: #### 64167-5 #### HEAVEN Goyal (63426) [facility] ([facility]) [address] [place] [address] 02011Avtr nitrogen [Mass/Vol]62 mg/dLHigh6-23UnTuscarawas HospitalComment on above:Performed By: #### 25480-6 #### HEAVEN Goyal (71984) [facility] ([facility]) [address] [place] [address] 64730ESS W Auto Differential panel (Bld)on 05-19-8624Qruzsszpj (Bld) [#/Vol]0.04 10*3/[facility] South CampusBasophils/100 WBC (Bld)0.3 %0.0 - 2.0 %[facility] Cross HospitalEosinophils (Bld) [#/Vol] 0.04 10*3/[facility] CampusEosinophils/100 WBC (Bld)0.3 %0.0 - 6.0 %[facility] Cross HospitalErythrocyte distribution width (RBC) [Ratio]12.5 %11.5 - 14.5 %[facility] Cross HospitalHematocrit (Bld) [Volume fraction]27.2 %Low36.0 - 46.0 %[facility] Hemoglobin (Bld) [Mass/Vol]9.2 g/dLLow12.0 - 16.0 g/dLUnAshtabula County Medical CenterImmamercy health st. [facility] granulocytes (Bld) [#/Vol]0.16 10*3/[facility] South CampusImputnam county memorial hospital granulocytes/100 WBC (Bld)1.2 %High0.0 - 0.9 %[facility] HospitalInterpretation and review of laboratory resultsAbnormal [facility] Cross HospitalLymphocytes (Bld) [#/Vol]1.71 10*3/[facility] CampusLymphocytes/100 WBC (Bld)12.6 %13.0 - 44.0 %[facility] (RBC) [Entitic mass]27.8 pg26.0 - 34.0 pgUnSouthview Medical CenterHC (RBC) [Mass/Vol]33.8 g/dL32.0 - 36.0 g/dLUnSouthview Medical CenterV (RBC) [Entitic vol]82 fL80 - 100 fLUniHolzer Medical Center – JacksonMonocytes (Bld) [#/Vol]1.09 10*3/[facility] Medical CenterMonocytes/100 WBC (Bld)8.1 %2.0 - 10.0 %[facility] Cross HospitalNeutrophils (Bld) [#/Vol]10.48 10*3/[facility] Medical CenterNeutrophils/100 WBC (Bld)77.5 %40.0 - 80.0 %[facility] HospitalNucleated RBC/100 WBC (Bld) [Ratio]0.0 %[facility] HospitalPlatelets (Bld) [#/Vol]238 10*3/[facility] CampusRBC (Bld) [#/Vol]3.31 10*6/[facility] Medical CenterWBC (Bld) [#/Vol]13.5 10*3/[facility] Medical CenterUnAshtabula County Medical CenterBasophils (Bld) [#/Vol]0.04 x10*3/Normal0.00-0.10 [facility] HospitalComment on above:Performed By: #### 47255-7 #### HEAVEN Goyal (66079) [facility] ([facility]) [id number] [place] [address] 91403Qxlvbinqh/100 WBC (Bld)0.3 %Normal0.0-2.0UnTuscarawas HospitalComment on above:Performed By: #### 40053-8 #### HEAVEN Goyal (42946) [facility] ([facility]) [address] [place] [address] 71070Ncbypvnmuvc (Bld) [#/Vol]0.04 x10*3/uLNormal0.00-0.70 [facility] HospitalComment on above:Performed By: #### 69012-4 #### HEAVEN Goyal (17023) [facility] ([facility]) [address] [place] [address] 12783Zkhzaefvjiq/100 WBC (Bld)0.3 %Normal0.0-6.0UnTuscarawas HospitalComment on above:Performed By: #### 68941-3 #### HEAVEN Goyal (30125) [facility] ([facility]) [address] [place] [address] 31094Qdcvdjxhqoy distribution width (RBC) [Ratio]12.5 %Normal 11.5-14.5UnTuscarawas HospitalComment on above:Performed By: #### 45858-7 #### HEAVEN Goyal (18702) [facility] ([facility]) [address] [place] [address] 29154Lfrswfdhiy (Bld) [Volume fraction]27.2 %Low36.0-46.0 [facility] HospitalComment on above:Performed By: #### 79266-3 #### HEAVEN Goyal (91991) [facility] ([facility]) [address] [place] [address] 60101Lnvovapmoq (Bld) [Mass/Vol]9.2 g/dLLow12.0-16.0UnTuscarawas HospitalComment on above:Performed By: #### 33239-7 #### HEAVEN Goyal (74708) [facility] ([facility]) [address] [place], [place] [address]Uolxgocg granulocytes (Bld) [#/Vol]0.16 x10*3/uLNormal 0.00-0.70UnTuscarawas HospitalComment on above:Performed By: #### 07830-1 #### HEAVEN Goyal (13994) [facility] ([facility]) [address] [place], [place] [address]Uqrlmswg granulocytes/100 WBC (Bld)1.2 %High0.0-0.9UnTuscarawas HospitalComment on above:Result Comment: Immature Granulocyte Count (IG) includes promyelocytes, myelocytes and metamyelocytes but does not include bands. Percent differential counts (%) should be interpreted in the context of the absolute cell counts (cells/UL).Performed By: #### 24308-4 #### HEAVEN Goyal (09213) [facility] ([facility]) [address] [place] [address] 65616Rnpbybcwhsp (Bld) [#/Vol]1.71 x10*3/uLNormal1.20-4.80 [facility] HospitalComment on above:Performed By: #### 20533-3 #### HEAVEN Goyal (69867) [facility] ([facility]) [address] [place], [place] [address]Ogijlrnqvhc/100 WBC (Bld)12.6 %Eeseeu32.0-44.0[facility] HospitalComment on above:Performed By: #### 76751-6 #### HEAVEN Goyal (24406) [facility] ([facility]) [address] [place] [address] 89469IIM (RBC) [Entitic mass]27.8 hoVhsogs78.0-34.0[facility] HospitalComment on above:Performed By: #### 79201-1 #### HEAVEN Goyal (97326) [facility] ([facility]) [address] [place], [place] [address]MCTP (RBC) [Mass/Vol]33.8 g/rPSvxkvo63.0-36.0UnTuscarawas HospitalComment on above:Performed By: #### 61518-9 #### HEAVEN Goyal (73267) [facility] ([facility]) [address] [place], [place] [address]OEZ (RBC) [Entitic vol]82 xJShmbfs59-745VrxguypbbvTuscarawas HospitalComment on above:Performed By: #### 96788-4 #### HEAVEN Goyal (61885) [facility] ([facility]) [address] [place], [place] [address]Nwotbnoez (Bld) [#/Vol]1.09 x10*3/uLHigh0.10-1.00UnTuscarawas HospitalComment on above:Performed By: #### 40245-6 #### HEAVEN Goyal (31502) [facility] ([facility]) [address] [place], [place] [address]Ukukvgjji/100 WBC (Bld)8.1 %Normal2.0-10.0[facility] HospitalComment on above:Performed By: #### 90981-2 #### HEAVEN Goyal (25389) [facility] ([facility]) [address] [place], [place] [address]Tdvblwizlbb (Bld) [#/Vol]10.48 x10*3/uLHigh1.20-7.70 [facility] HospitalComment on above:Result Comment: Percent differential counts (%) should be interpreted in the context of the absolute cell counts (cells/uL).Performed By: #### 23025-2 #### HEAVEN Goyal (86706) [facility] ([facility]) [address] [place], [place] [address]Yuewxwpbnke/100 WBC (Bld)77.5 %Ojibyu97.0-80.0UnTuscarawas HospitalComment on above:Performed By: #### 20575-9 #### HEAVEN Goyal (84072) [facility] ([facility]) [address] [place], [place] [address]Hyuvzjcob RBC/100 WBC (Bld) [Ratio]0.0 /100 WBCsNormal0.0-0.0 [facility] HospitalComment on above:Performed By: #### 85975-8 #### HEAVEN Goyal (87618) [facility] ([facility]) [address] [place] [address] 48898Ihzaxtpnx (Bld) [#/Vol]238 x10*3/qIFupocy939-431IswiuingyoTuscarawas HospitalComment on above:Performed By: #### 95240-8 #### HEAVEN Goyal (86330) [facility] ([facility]) [address] [place] [address] 08370BHQ (Bld) [#/Vol]3.31 x10*6/uLLow4.00-5.20UnTuscarawas HospitalComment on above:Performed By: #### 92595-3 #### HEAVEN Goyal (78961) [facility] ([facility]) [address] [place] [address] 07016OVW (Bld) [#/Vol]13.5 x10*3/uLHigh4.4-11.3[facility] HospitalComment on above:Performed By: #### 36522-9 #### HEAVEN Goyal (31198) [facility] ([facility]) [address] [place] [address] 04335QNM 12-LEADon 28-39-4686NTN 12-LEADVentricular Rate 72 Atrial Rate 91 QRS Duration 98 Q-T Interval 434 QTC Calculation(Bazett) 475 P Pigeon 2 R Pigeon 25 T Pigeon 99 QRS Count 12 Q Onset 220 T Offset 437 QTC Fredericia 461 Diagnosis Sinus rhythm with 2nd degree AV block (Mobitz I) with Premature ventricular complexes or Fusion complexes Inferior infarct (cited on or before 27-AUG-2025) Anterolateral infarct (cited on or before 27-AUG-2025) ACUTE [place] / STEMI Consider right ventricular involvement in acute inferior infarct Abnormal ECG When compared with ECG of 29-AUG-2025 06:20, Significant changes have occurred Confirmed by Randolph Crenshaw ([id number]) on 09/01/2025 11:08:02 [facility] HospitalECG 12-LEADVentricular Rate 102 Atrial Rate 102 P-R Interval 228 QRS Duration 86 Q-T Interval 336 QTC Calculation(Bazett) 437 P Pigeon 18 R Pigeon 58 T Pigeon 115 QRS Count 17 Q Onset 218 P Onset 104 P Offset 147 T Offset 386 QTC Fredericia 400 Diagnosis Age and gender specific ECG analysis Sinus tachycardia with 1st degree AV block Inferior infarct (cited on or before 27-AUG-2025) 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) Lateral injury pattern ACUTE [place] / STEMI Consider right ventricular involvement in acute inferior infarct Abnormal ECG When compared with ECG of 28-AUG-2025 05:52, MS interval has increased Serial changes of evolving Anteroseptal infarct Present Serial changes of evolving Inferior infarct Present Confirmed by Randolph Crenshaw ([id number]) on 09/01/2025 11:06:01 [facility] HospitalGlucose Test strip manual (Bld) [Mass/Vol]on 74-91-8678Yjxzkyh [Mass/Vol]246 mg/tKHbpe11 - 99 mg/dLUnAshtabula County Medical Center Interpretation and review of laboratory resultsAbnoalUDayton VA Medical CenterUnAshtabula County Medical CenterGlucose [Mass/Vol]246 mg/zIIvqc83-01 [facility] HospitalComment on above:Performed By: #### 47683-5 #### HEAEVN Goyal (31863) [facility] ([facility]) [address] [place], [place] [address]Glucose [Mass/Vol]267 mg/sFRckn64 - 99 mg/dLUnAshtabula County Medical CenterInterpretation and review of laboratory resultsAbWood County HospitalGlucose [Mass/Vol]267 mg/iWLdaq17-42KtbyzgyohxTuscarawas HospitalComment on above:Performed By: #### 19372-9 #### HEAVEN Goyal (30058) [facility] ([facility]) [id number] [place] [address] 77397Zboicax [Mass/Vol]253 mg/aSQock62 - 99 mg/dLUnAshtabula County Medical CenterInterpretation and review of laboratory resultsAbWayne HealthCare Main CampusUnAshtabula County Medical CenterGlucose [Mass/Vol]253 mg/rAXxvu33-26AhsyesrydfTuscarawas HospitalComment on above:Performed By: #### 20497-3 #### HEAVEN Goyal (89458) [facility] ([facility]) [id number] [place] [address] 86740Ikdafkz [Mass/Vol]286 mg/eOXvvb30 - 99 mg/dLUnAshtabula County Medical CenterInterpretation and review of laboratory resultsAbWood County HospitalGlucose [Mass/Vol]286 mg/eOLynk27-23BaasznphkxTuscarawas HospitalComment on above:Performed By: #### 80702-0 #### HEAVEN Goyal (71555) [facility] ([facility]) [address] [place] [address] 23288Rboqmwc [Mass/Vol]249 mg/uJWwya78 - 99 mg/dLGreen Cross HospitalInterpretation and review of laboratory resultsAbWood County HospitalGlucose [Mass/Vol]249 mg/aXFere26-92VfimmqjidbTuscarawas HospitalComment on above:Performed By: #### [id number] #### HEAVEN Goyal ([id number]) [facility] ([facility]) [id number] [place] [address] 03559Zirdqgh Assayon [id number] unfractionated Chromogenic method Qn (PPP)0.2See Comment Below for Therapeutic Ranges IU/mLUnAshtabula County Medical CenterHeparin unfractionated Chromogenic method Qn (PPP)0.3See Comment Below for Therapeutic Ranges IU/mLUnAshtabula County Medical Center Heparin unfractionated Chromogenic method Qn (PPP)on [id number] and review of laboratory resultsNormalUPremier Health Miami Valley Hospital NorthUnAshtabula County Medical CenterInterpretation and review of laboratory resultsNormalUniHendricks Regional Health Heparin.unfractionatedon 53-04-9404Besftww unfractionated Chromogenic method Qn (PPP)0.2 IU/mLNormalSee Comment Below for Therapeutic RangesPremier Health Miami Valley HospitalComment on above:Order Comment: The therapeutic reference range for UFH may be either 0.3-0.6 IU/mL or 0.3-0.7 IU/mLbased on the clinical setting for anticoagulant therapy and the associated nomogram used. For Heparin dosing guidelines based on clinical scenario and Heparin Assay results, please refer to local Pharmacy and the [facility] Guidelines for Anticoagulation Therapy available on the [facility] intranet at: [email or web address] By: #### [id number] #### HEAVEN Goyal ([id number]) [facility] ([facility]) [address] [place] [address] 40023Tbmydqk unfractionated Chromogenic method Qn (PPP)0.3 IU/mL NormalSee Comment Below for Therapeutic RangesPremier Health Miami Valley HospitalComment on above:Order Comment: The therapeutic reference range for UFH may be either 0.3-0.6 IU/mL or 0.3-0.7 IU/mLbased on the clinical setting for anticoagulant therapy and the associated nomogram used. For Heparin dosing guidelines based on clinical scenario and Heparin Assay results, please refer to local Pharmacy and the [facility] Guidelines for Anticoagulation Therapy available on the [facility] intranet at: [email or web address]/[email or web address] es_for_Anticoagu.aspxPerformed By: #### 00523-3 #### HEAVEN Goyla ([id number]) [facility] ([facility]) [address] [place] [address] 45999Vlzvwqo function 2000 panelon 77-79-0821Iyuyjhr BCP dye [Mass/Vol]3.1 g/dLLow3.4 - 5.0 g/dLGreen Cross HospitalALP [Catalytic activity/Vol]99 U/L33 - 110 U/[facility] HospitalALT With P-5'-P [Catalytic activity/Vol]26 U/L7 - 45 U/[facility] HospitalAST With P-5'-P [Catalytic activity/Vol]67 U/LHigh9 - 39 U/[facility] HospitalBilirubin [Mass/Vol]0.7 mg/dL0.0 - 1.2 mg/dLGreen Cross HospitalBilirubin.direct [Mass/Vol]0.1 mg/dL0.0 - 0.3 mg/dL Green Cross HospitalInterpretation and review of laboratory results AbnormalGreen Cross HospitalProtein [Mass/Vol]5.4 g/dLLow6.4 - 8.2 g/dLGreen Cross HospitalUnAshtabula County Medical CenterAlbumin BCP dye [Mass/Vol]3.1 g/dLLow3.4-5.0UnTuscarawas HospitalComment on above:Performed By: #### 82996-2 #### HEAVEN Goyal ([id number]) [facility] ([facility]) [id number] [place] [address] 61747NJC [Catalytic activity/Vol]99 U/QRvgbtt63-742QmgrsjaajqTuscarawas HospitalComment on above:Performed By: #### 19865-2 #### HEAVEN Goyal ([id number]) [facility] ([facility]) [address] [place], [place] [address]HAF With P-5'-P [Catalytic activity/Vol]26 U/LNormal7-45 [facility] Miami Valley HospitalComment on above:Result Comment: Patients treated with Sulfasalazine may generate falsely decreased results for ALT.Performed By: #### 44419-3 #### HEAVEN Goyal ([id number]) [facility] ([facility]) [address] [place], [place] [address]HEH With P-5'-P [Catalytic activity/Vol]67 U/LHigh9-39 [facility] Miami Valley HospitalComment on above:Performed By: #### 57676-7 #### HEAVEN Goyal ([id number]) [facility] ([facility]) [id number] [place] [address] 10417Dfirealft [Mass/Vol]0.7 mg/dLNormal0.0-1.2UnTuscarawas HospitalComment on above:Performed By: #### 35506-1 #### HEAVEN Goyal ([id number]) [facility] ([facility]) [address] [place] [address] 37965Pmvyxwlmc.direct [Mass/Vol]0.1 mg/dLNormal0.0-0.3UnTuscarawas HospitalComment on above:Performed By: #### 86772-0 #### HEAVEN Goyal ([id number]) [facility] ([facility]) [address] [place] [address] 74874Dmqtmtb [Mass/Vol]5.4 g/dLLow6.4-8.2Premier Health Miami Valley HospitalComment on above:Performed By: #### 47708-5 #### HEAVEN Goyal ([id number]) [facility] ([facility]) [address] [place] [address] 36149Ozukvloqlwn 72-72-5383Vgzmpvyix [Mass/Vol]2.28 mg/dL1.60 - 2.40 mg/dLGreen Cross HospitalMagnesium [Mass/Vol]2.28 mg/dLNormal 1.60-2.40UnTuscarawas HospitalComment on above:Performed By: #### 81215-5 #### HEAVEN Goyal (53790) [facility] ([facility]) [address] [place] [address] 14777Emwrhnxhd [Mass/Vol]on 54-94-5632Tbiyhhaphbahbb and review of laboratory resultsNormalUniHolzer Medical Center – JacksonNo Panel Informationon 95-40-4976PkqrqcytdjGreen Cross HospitalPhosphateon 21-38-5097Csnryilbr [Mass/Vol]8.8 mg/dLHigh2.5-4.9UnTuscarawas Hospital Comment on above:Performed By: #### 91602-4 #### HEAVEN Goyal (95859) [facility] ([facility]) [address] [place], [place] [address]Aywgxtkah [Mass/Vol]on 94-16-3412Kxypgplempqynx and review of laboratory resultsAbnoHolzer Medical Center – JacksonPhosphoruson 98-72-1660Thnkzqkmu [Mass/Vol]8.8 mg/dLHigh2.5 - 4.9 mg/dLGreen Cross HospitalUS.doppler Carotid arteries - bilateralon 05-19-3280VG MMODALUH MMODALUnAshtabula County Medical Center Work Phone: US.doppler Carotid arteries - bilateralOrdered By: Alex Moreno on 47-89-1331YhyyipfopcAshtabula County Medical Center Work Phone: ACT Coag (Bld)on 58-28-1839Ddrexiphbgyjji and review of laboratory resultsNoHolzer Medical Center – JacksonUnAshtabula County Medical CenterACTIVATED CLOTTING TIME LOWon 28-49-7757NVA Coag (Bld)121 s Green Cross HospitalActivated clotting timeon 92-14-1810NOF Coag (Bld)121 lOirhzp29-212YzqkbcydudTuscarawas HospitalComment on above:Result Comment: Target ACT range will vary based on the patient population, clinical status, and surgical intervention occurring.Performed By: #### 18527-1 #### HEAVEN Goyal (25812) [facility] ([facility]) [address] [place], [place] [address]CIL W Auto Differential panel (Bld)on 83-28-2166Jpfbymgap (Bld) [#/Vol]0.04 10*3/[facility] CampusBasophils/100 WBC (Bld)0.3 %0.0 - 2.0 %Green Cross HospitalEosinophils (Bld) [#/Vol] 0.01 10*3/[facility] CampusEosinophils/100 WBC (Bld)0.1 %0.0 - 6.0 %Green Cross HospitalErythrocyte distribution width (RBC) [Ratio]13.2 %11.5 - 14.5 %Green Cross HospitalHematocrit (Bld) [Volume fraction]29.0 %Low36.0 - 46.0 %[facility] Hemoglobin (Bld) [Mass/Vol]9.6 g/dLLow12.0 - 16.0 g/dLUnAshtabula County Medical CenterImmamercy health st. [facility] hospital granulocytes (Bld) [#/Vol]0.07 10*3/[facility] South CampusImputnam county memorial hospital granulocytes/100 WBC (Bld)0.5 %0.0 - 0.9 %Green Cross HospitalInterpretation and review of laboratory resultsAbnormalUDayton VA Medical CenterLymphocytes (Bld) [#/Vol]2.06 10*3/[facility] CampusLymphocytes/100 WBC (Bld)15.5 %13.0 - 44.0 %[facility]ams County HospitalH (RBC) [Entitic mass]27.8 pg26.0 - 34.0 pgUnSouthview Medical CenterHC (RBC) [Mass/Vol]33.1 g/dL32.0 - 36.0 g/dLAdams County HospitalV (RBC) [Entitic vol]84 fL80 - 100 fLUniHolzer Medical Center – JacksonMonocytes (Bld) [#/Vol]1.28 10*3/[facility] Medical CenterMonocytes/100 WBC (Bld)9.6 %2.0 - 10.0 %Green Cross HospitalNeutrophils (Bld) [#/Vol]9.85 10*3/[facility] Medical CenterNeutrophils/100 WBC (Bld)74.0 %40.0 - 80.0 %Green Cross HospitalNucleated RBC/100 WBC (Bld) [Ratio]0.0 %Green Cross HospitalPlatelets (Bld) [#/Vol]258 10*3/[facility] CampusRBC (Bld) [#/Vol]3.45 10*6/[facility] Medical CenterWBC (Bld) [#/Vol] 13.3 10*3/[facility] Medical CenterUnAshtabula County Medical CenterBasophils (Bld) [#/Vol]0.04 x10*3/Normal0.00-0.10UnTuscarawas HospitalComment on above:Performed By: #### 98600-9 #### HEAVEN Goyal ([id number]) [facility] ([facility]) [id number] [place] [address] 48464Ngudxfmfi/100 WBC (Bld)0.3 %Normal0.0-2.0UnTuscarawas HospitalComment on above:Performed By: #### 56687-8 #### HEAVEN Goyal (82872) [facility] ([facility]) [address] [place] [address] 03890Jnsfpyrupxh (Bld) [#/Vol]0.01 x10*3/uLNormal0.00-0.70 [facility] HospitalComment on above:Performed By: #### 32127-9 #### HEAVEN Goyal (00034) [facility] ([facility]) [id number] [place] [address] 93853Wdmykrtihsd/100 WBC (Bld)0.1 %Normal0.0-6.0UnTuscarawas HospitalComment on above:Performed By: #### 71623-8 #### HEAVEN Goyal (75952) [facility] ([facility]) [address] [place] [address] 08281Jerxswiaaru distribution width (RBC) [Ratio]13.2 %Normal 11.5-14.5UnTuscarawas HospitalComment on above:Performed By: #### 94348-7 #### HEAVEN Goyal (53502) [facility] ([facility]) [id number] [place] [address] 86639Mnmgeinyvt (Bld) [Volume fraction]29.0 %Low36.0-46.0 [facility] HospitalComment on above:Performed By: #### 54078-9 #### HEAVEN Goyal ([id number]) [facility] ([facility]) [address] [place] [address] 91944Qwvpxqsloc (Bld) [Mass/Vol]9.6 g/dLLow12.0-16.0UnTuscarawas HospitalComment on above:Performed By: #### 68293-8 #### HEAVEN Goyal (53358) [facility] ([facility]) [address] [place], [place] [address]Wcvztvrz granulocytes (Bld) [#/Vol]0.07 x10*3/uLNormal 0.00-0.70UnTuscarawas HospitalComment on above:Performed By: #### 95449-7 #### HEAVEN Goyal (62328) [facility] ([facility]) [address] [place], [place] [address]Lnmciidd granulocytes/100 WBC (Bld)0.5 %Normal0.0-0.9 [facility] HospitalComment on above:Result Comment: Immature Granulocyte Count (IG) includes promyelocytes, myelocytes and metamyelocytes but does not include bands. Percent differential counts (%) should be interpreted in the context of the absolute cell counts (cells/UL). Performed By: #### 67812-8 #### HEAVEN Goyal (41434) [facility] ([facility]) [address] [place] [address] 11848Vlwhjromtbr (Bld) [#/Vol]2.06 x10*3/uLNormal1.20-4.80 [facility] HospitalComment on above:Performed By: #### 39992-1 #### HEAVEN Goyal (46956) [facility] ([facility]) [address] [place], [place] [address]Whpzjddpons/100 WBC (Bld)15.5 %Noqyzy50.0-44.0UnTuscarawas HospitalComment on above:Performed By: #### 49528-4 #### HEAVEN Goyal (20771) [facility] ([facility]) [address] [place] [address] 46584XZD (RBC) [Entitic mass]27.8 wnXisfwj62.0-34.0Prem[facility] Miami [facility] HospitalComment on above:Performed By: #### 59116-9 #### HEAVEN Goyal (24315) [facility] ([facility]) [address] [place], [place] [address]HPOV (RBC) [Mass/Vol]33.1 g/sVSnjhdv33.0-36.0Prem[facility] HospitalComment on above:Performed By: #### 49255-9 #### HEAVEN Goyal (96197) [facility] ([facility]) [address] [place], [place] [address]UOP (RBC) [Entitic vol]84 nGHriuga78-573ZnpgmvusshTuscarawas HospitalComment on above:Performed By: #### 04955-4 #### HEAVEN Goyal (56069) [facility] ([facility]) [address] [place] [address] 18223Tamhkbpna (Bld) [#/Vol]1.28 x10*3/uLHigh0.10-1.00UnTuscarawas HospitalComment on above:Performed By: #### 54910-2 #### HEAVEN Goyal (42656) [facility] ([facility]) [address] [place], [place] [address]Qwdrknzct/100 WBC (Bld)9.6 %Normal2.0-10.0[facility] HospitalComment on above:Performed By: #### 03279-7 #### HEAVEN Goyal (08653) [facility] ([facility]) [address] [place], [place] [address]Mbpkggghnfo (Bld) [#/Vol]9.85 x10*3/uLHigh1.20-7.70UnTuscarawas HospitalComment on above:Result Comment: Percent differential counts (%) should be interpreted in the context of the absolute cell counts (cells/uL).Performed By: #### 18762-9 #### HEAVEN Goyal (90897) [facility] ([facility]) [address] [place], [place] [address]Cpgmpjdbvjw/100 WBC (Bld)74.0 %Nxkxyy85.0-80.0[facility] HospitalComment on above:Performed By: #### 80054-6 #### HEAVEN Goyal (71679) [facility] ([facility]) [address] [place] [address] 43973Sjwkefutq RBC/100 WBC (Bld) [Ratio]0.0 /100 WBCsNormal0.0-0.0 [facility] HospitalComment on above:Performed By: #### 82126-6 #### HEAVEN Goyal (54956) [facility] ([facility]) [address] [place] [address] 59102Njunevjwj (Bld) [#/Vol]258 x10*3/mRHxuxmt178-530EwkyibetlmTuscarawas HospitalComment on above:Performed By: #### 64600-1 #### HEAVEN Goyal (96192) [facility] ([facility]) [address] [place] [address] 34239FNO (Bld) [#/Vol]3.45 x10*6/uLLow4.00-5.20UnTuscarawas HospitalComment on above:Performed By: #### 34577-8 #### HEAVEN Goyal (63132) [facility] ([facility]) [address] [place] [address] 053[address]IGQ (Bld) [#/Vol]13.3 x10*3/uLHigh4.4-11.3[facility] HospitalComment on above:Performed By: #### 80393-5 #### HEAVEN Goyal (76897) [facility] ([facility]) [address] [place] [address] 22562KCI 12-LEADon 38-97-2766WMM 12-LEADVentricular Rate 89 Atrial Rate 115 QRS Duration 88 Q-T Interval 362 QTC Calculation(Bazett) 440 R Pigeon 21 T Pigeon 103 QRS Count 15 Q Onset 220 T Offset 401 QTC Fredericia 412 Diagnosis Sinus tachycardia with 2nd degree AV block (Mobitz I) Inferior infarct (cited on or before 27-AUG-2025) 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) ACUTE [place] / STEMI Consider right ventricular involvement in acute inferior infarct Abnormal ECG When compared with ECG of 28-AUG-2025 05:52, Sinus rhythm is now with 2nd degree AV block (Mobitz I) Serial changes of evolving Anteroseptal infarct Present Serial changes of evolving Inferior infarct Present Confirmed by ThalTko ([id number]) on 09/01/2025 11:05:52 [facility] HospitalECG 12-LEADVentricular Rate 78 Atrial Rate 78 P-R Interval 140 QRS Duration 78 Q-T Interval 366 QTC Calculation(Bazett) 417 P Pigeon -8 R Pigeon 10 T Pigeon 100 QRS Count 12 Q Onset 221 P Onset 151 P Offset 193 T Offset 404 QTC Fredericia 399 Diagnosis Age and gender specific ECG analysis Normal sinus rhythm Inferior infarct (cited on or before 27-AUG-2025) 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) Lateral injury pattern ACUTE [place] / STEMI Consider right ventricular involvement in acute inferior infarct Abnormal ECG When compared with ECG of 27-AUG-2025 21:52, Serial changes of evolving Anteroseptal infarct Present Serial changes of evolving Inferior infarct Present Confirmed by Flower Randolph ([id number]) on 09/01/2025 11:01:25 [facility] HospitalGas panel (BldV)on 55-84-4028Vqlc excess Calc (BldV) [Moles/Vol]- 3.0000 mmol/LLow-2.0 - 3.0 mmol/[facility] HospitalCO2 (BldV) [Partial pressure]42 mm[Hg][facility] Cross HospitalHCO3 (Bld) [Moles/Vol]22.7 mmol/L22.0 - 26.0 mmol/[facility] Interpretation and review of laboratory resultsAbnormalUniHolzer Medical Center – JacksonOxygen (BldV) [Partial pressure]47 mm[Hg][facility] HospitalOxygen saturation in Venous blood71 %45 - 75 %Green Cross HospitalOxyhemoglobin (BldV) [Mass fraction]69.8 %45.0 - 75.0 %Green Cross HospitalpH (BldV)7.34 [pH]7.33 - 7.43 pHUniversity Hospitals Newman Memorial Hospital – ShattuckGlucose Test strip manual (Bld) [Mass/Vol]on 19-09-2931Rbmzybv [Mass/Vol]227 mg/fSJvze41 - 99 mg/dLGreen Cross HospitalInterpretation and review of laboratory resultsAbnoRiverview Health InstituteUnAshtabula County Medical CenterGlucose [Mass/Vol]227 mg/gJYxfe85-15DhjhmxnapoTuscarawas HospitalComment on above:Performed By: #### 56801-9 #### HEAVEN Goyal (20887) [facility] ([facility]) [address] [place] [address] 832[address]Onsyorp [Mass/Vol]200 mg/aMNvll25 - 99 mg/dLUnAshtabula County Medical CenterInterpretation and review of laboratory resultsAbWayne HealthCare Main CampusUnAshtabula County Medical CenterGlucose [Mass/Vol]200 mg/mDNfbm01-31HkkbdfgrvwTuscarawas HospitalComment on above:Performed By: #### 50814-6 #### HEAVEN Goyal (22899) [facility] ([facility]) [address] [place] [address] 38660Nvykghb [Mass/Vol]222 mg/pXMkzz17 - 99 mg/dLUnAshtabula County Medical CenterInterpretation and review of laboratory resultsAbWayne HealthCare Main CampusUnAshtabula County Medical CenterGlucose [Mass/Vol]222 mg/nQCnun09-51VruorjmzkhTuscarawas HospitalComment on above:Performed By: #### 38134-6 #### HEAVEN Goyal (35992) [facility] ([facility]) [address] [place] [address] 44555Lbovepx [Mass/Vol]208 mg/xQDcnx95 - 99 mg/dLUnAshtabula County Medical CenterInterpretation and review of laboratory resultsAbWood County HospitalGlucose [Mass/Vol]208 mg/eLFsgf22-51AnxvchczlsTuscarawas HospitalComment on above:Performed By: #### 75993-0 #### HEAVEN Goyal (00691) [facility] ([facility]) [address] [place] [address] 74203Ybsjbjl [Mass/Vol]178 mg/oDHbrm89 - 99 mg/dLGreen Cross HospitalInterpretation and review of laboratory resultsAbWood County HospitalGlucose [Mass/Vol]178 mg/sCTzww33-37LapnutxjqnPremier Health Miami Valley HospitalComment on above:Performed By: #### 10281-2 #### HEAVEN Goyal (02019) [facility] ([facility]) [address] [place] [address] 39611Bzvantw [Mass/Vol]183 mg/bEGbaq17 - 99 mg/dLGreen Cross HospitalInterpretation and review of laboratory resultsAbWood County HospitalGlucose [Mass/Vol]183 mg/pBNqez49-28OprxclojrgTuscarawas HospitalComment on above:Performed By: #### 17124-7 #### HEAVEN Goyal (82969) [facility] ([facility]) [address] [place] [address] 42505Ilmejib Assayon 95-19-6152Hkhpkpu unfractionated Chromogenic method Qn (PPP)0.3See Comment Below for Therapeutic Ranges IU/mLGreen Cross HospitalHeparin unfractionated Chromogenic method Qn (PPP)on 90-11-3667Ygudaaccctjeov and review of laboratory resultsNoalUniSCCI Hospital LimaUnAshtabula County Medical CenterHeparin.unfractionatedon 35-22-3310Pawumpu unfractionated Chromogenic method Qn (PPP)0.3 IU/mLNormalSee Comment Below for Therapeutic RangesPremier Health Miami Valley HospitalComment on above:Order Comment: The therapeutic reference range for UFH may be either 0.3-0.6 IU/mL or 0.3-0.7 IU/mL based on the clinical setting for anticoagulant therapy and the associated nomogram used. For Heparin dosing guidelines based on clinical scenario and Heparin Assay results, please refer to local Pharmacy and the [facility] Guidelines for Anticoagulation Therapy available on the [facility] intranet at: [email or web address] – oklahoma citymunity.[facility], incspsentara northern virgin[email or web address]/Pages/[place]_[facility]_Guidelin es_for_Anticoagu.aspxPerformed By: #### 31756-7 #### HEAVEN Goyal (67412) [facility] ([facility]) [address] [place] [address] 75990Uiyxrpv function 2000 panelon 36-81-4899Yhpxokx BCP dye [Mass/Vol]3.4 g/dL3.4 - 5.0 g/dLUnAshtabula County Medical CenterALP [Catalytic activity/Vol]95 U/L33 - 110 U/[facility] HospitalALT With P-5'-P [Catalytic activity/Vol]33 U/L7 - 45 U/[facility] HospitalAST With P-5'-P [Catalytic activity/Vol]161 U/LHigh9 - 39 U/[facility] HospitalBilirubin [Mass/Vol]0.5 mg/dL0.0 - 1.2 mg/dLGreen Cross HospitalBilirubin.direct [Mass/Vol]0.1 mg/dL0.0 - 0.3 mg/dLUnAshtabula County Medical CenterInterpretation and review of laboratory resultsAbnormalUniHolzer Medical Center – JacksonProtein [Mass/Vol]5.7 g/dLLow6.4 - 8.2 g/dLUnAshtabula County Medical CenterUnAshtabula County Medical CenterAlbumin BCP dye [Mass/Vol]3.4 g/dLNormal3.4-5.0[facility] Comment on above:Performed By: #### 66751-2 #### HEAVEN Goyal (76113) [facility] ([facility]) [address] [place] [address] 40378XNU [Catalytic activity/Vol]95 U/AQvetab03-545EzmtrevknlTuscarawas HospitalComment on above:Performed By: #### 92304-0 #### HEAVEN Goyal (71926) [facility] ([facility]) [address] [place] [address] 57183ZCZ With P-5'-P [Catalytic activity/Vol]33 U/LNormal7-45 [facility] HospitalComment on above:Result Comment: Patients treated with Sulfasalazine may generate falsely decreased results for ALT.Performed By: #### 96446-6 #### HEAVEN Goyal (26065) [facility] ([facility]) [address] [place], [place] [address]TUI With P-5'-P [Catalytic activity/Vol]161 U/LHigh9-39 [facility] HospitalComment on above:Performed By: #### 62485-0 #### HEAVEN Goyal (95964) [facility] ([facility]) [id number] [place] [address]Flgsetmha [Mass/Vol]0.5 mg/dLNormal0.0-1.2UnTuscarawas HospitalComment on above:Performed By: #### 93933-7 #### HEAVEN Goyal ([id number]) [facility] ([facility]) [id number] [place] [address] 61985Jabgvgyan.direct [Mass/Vol]0.1 mg/dLNormal0.0-0.3UnTuscarawas HospitalComment on above:Performed By: #### 17763-3 #### HEAVEN Goyal ([id number]) [facility] ([facility]) [id number] [place] [address] 04128Rngmsqz [Mass/Vol]5.7 g/dLLow6.4-8.2UnTuscarawas HospitalComment on above:Performed By: #### 09461-8 #### HEAVEN Goyal ([id number]) [facility] ([facility]) [id number] [place] [address] 65619Mwyiumrvgfj 14-40-1814Falhwcdds [Mass/Vol]2.32 mg/dL1.60 - 2.40 mg/dLUnAshtabula County Medical CenterMagnesium [Mass/Vol]2.32 mg/dLNormal 1.60-2.40UnTuscarawas HospitalComment on above:Performed By: #### 81255-4 #### HEAVEN Goyal ([id number]) [facility] ([facility]) [address] [place], [place] [address]Pvchatpng [Mass/Vol]2.37 mg/dL1.60 - 2.40 mg/dLUnAshtabula County Medical CenterMagnesium [Mass/Vol]2.37 mg/dLNormal1.60-2.40UnTuscarawas HospitalComment on above:Performed By: #### 25212-1 #### HEAVEN Goyal ([id number]) [facility] ([facility] [facility] [place] [facility] [id number] [place] [address] 97121Npuidctyt [Mass/Vol]on 25-87-0848Beilxhpstfwjlu and review of laboratory resultsNoHolzer Medical Center – JacksonInterpretation and review of laboratory resultsNoHolzer Medical Center – JacksonUnAshtabula County Medical CenterNo Panel Informationon 87-18-6450BuikxsqaurAshtabula County Medical CenterPhosphateon 33-39-1253Cisuqiutj [Mass/Vol]6.9 mg/dLHigh2.5-4.9 [facility] HospitalComment on above:Performed By: #### 17428-9 #### HEAVEN Goyal ([id number]) [facility] ([facility] [facility]) [address] [place] [address] 54173Jbmuaoqau [Mass/Vol]on 64-76-7003Cezodcrpyortgh and review of laboratory resultsAbnoHolzer Medical Center – JacksonUnAshtabula County Medical CenterPhosphoruson 65-72-9992Ijnurzskr [Mass/Vol]6.9 mg/dLHigh2.5 - 4.9 mg/dLUnAshtabula County Medical CenterRenal function 2000 panelon 08-28-2025 Albumin BCP dye [Mass/Vol]3.5 g/dL3.4 - 5.0 g/dLUnAshtabula County Medical CenterAnion gap [Moles/Vol]19 mmol/L10 - 20 mmol/[facility] HospitalCalcium [Mass/Vol]8.4 mg/dLLow8.6 - 10.6 mg/dLUnAshtabula County Medical CenterChloride [Moles/Vol]93 mmol/LLow98 - 107 mmol/[facility] HospitalCO2 [Moles/Vol]21 mmol/L21 - 32 mmol/[facility] Creatinine [Mass/Vol]5.37 mg/dLHigh0.50 - 1.05 mg/dLUnAshtabula County Medical CenterGFR/1.73 sq M.predicted among non-blacks MDRD (S/P/Bld) [Vol rate/Area] 9 mL/min/{1.73_m2}Low- PINFUniHolzer Medical Center – JacksonGlucose [Mass/Vol] 285 mg/hYLiqt39 - 99 mg/dLGreen Cross HospitalInterpretation and review of laboratory resultsAbnormalUniHolzer Medical Center – JacksonPhosphate [Mass/Vol]7.4 mg/dLHigh2.5 - 4.9 mg/dLUnAshtabula County Medical CenterPotassium [Moles/Vol]4.7 mmol/L3.5 - 5.3 mmol/[facility] HospitalSodium [Moles/Vol]128 mmol/KSaz468 - 145 mmol/[facility] HospitalUrea nitrogen [Mass/Vol]51 mg/dLHigh6 - 23 mg/dLGreen Cross Hospital Albumin BCP dye [Mass/Vol]3.5 g/dLNormal3.4-5.0UnTuscarawas HospitalComment on above:Performed By: #### 93794-5 #### HEAVEN Goyal (30786) [facility] ([facility]) [address] [place] [address] 34299Bxneq gap [Moles/Vol]19 mmol/AVzdqgx74-19PxpkxxrgtmTuscarawas HospitalComment on above:Performed By: #### 03815-8 #### HEAVEN Goyal (77064) [facility] ([facility] [facility]) [address] [place] [address] 35423Szepieo [Mass/Vol]8.4 mg/dLLow8.6-10.6[facility] HospitalComment on above:Performed By: #### 91647-1 #### HEAVEN Goyal (32763) [facility] ([facility]) [address] [place] [address] 86441Mohcfpwz [Moles/Vol]93 mmol/DYnq37-868YereosnivpTuscarawas HospitalComment on above:Performed By: #### 01208-5 #### HEAVEN Goyal (35878) [facility] ([facility]) [address] [place], [place] [address]WR3 [Moles/Vol]21 mmol/IYycmhf20-85XqwveaxucoTuscarawas HospitalComment on above:Performed By: #### 26797-6 #### HEAVEN Goyal (78697) [facility] ([facility]) [address] [place], [place] [address]Hlotsksyof [Mass/Vol]5.37 mg/dLHigh0.50-1.05UnTuscarawas HospitalComment on above:Performed By: #### 49093-4 #### HEAVEN Goyal (47418) [facility] ([facility] [facility]) [address] [place] [address] 03399Azofjeumgj filtration rate9 mL/min/1.73m*2Low>60UnTuscarawas HospitalComment on above:Result Comment: Calculations of estimated GFR are performed using the 2020 CKD-EPI Study Refit equation without the race variable for the IDMS-Traceable creatinine methods. https://jasn.asnjournals.org/content/early//ASN.9197728064Sdubqnmap By: #### 26593-9 #### HEAVEN Goyal (62608) [facility] ([facility]) [address] [place], [place] [address]Rkxzufe [Mass/Vol]285 mg/pEMzmw71-68EjxumosgaxTuscarawas HospitalComment on above:Performed By: #### 08435-4 #### HEAVEN Goyal (76318) [facility] ([facility]) [address] [place] [address] 44931Gcecvuzix [Mass/Vol]7.4 mg/dLHigh2.5-4.9[facility] HospitalComment on above:Performed By: #### 48273-8 #### HEAVEN Goyal (63518) [facility] ([facility] [facility]) [address] [place] [address] 73275Ypyqfybol [Moles/Vol]4.7 mmol/LNormal3.5-5.3UnTuscarawas HospitalComment on above:Performed By: #### 74349-6 #### HEAVEN Goyal (89271) [facility] ([facility]) [address] [place], [place] [address]Hbzgar [Moles/Vol]128 mmol/TNmi103-310JajsxmwvefTuscarawas HospitalComment on above:Performed By: #### 05893-7 #### HEAVEN Goyal (48040) [facility] ([facility]) [address] [place], [place] [address]Tyhu nitrogen [Mass/Vol]51 mg/dLHigh6-23UnTuscarawas HospitalComment on above:Performed By: #### 32840-6 #### HEAVEN Goyal (54361) [facility] ([facility] [facility]) [address] [place], [place] [address]Ccjjdzq BCP dye [Mass/Vol]3.3 g/dLLow3.4 - 5.0 g/dLUnAshtabula County Medical CenterAnion gap [Moles/Vol]22 mmol/LHigh10 - 20 mmol/L [facility] HospitalCalcium [Mass/Vol]8.7 mg/dL8.6 - 10.6 mg/dL [facility] HospitalChloride [Moles/Vol]98 mmol/L98 - 107 mmol/L [facility] HospitalCO2 [Moles/Vol]17 mmol/LLow21 - 32 mmol/L [facility] HospitalCreatinine [Mass/Vol]5.03 mg/dLHigh0.50 - 1.05 mg/dLUnAshtabula County Medical CenterGFR/1.73 sq M.predicted among non-blacks MDRD (S/P/Bld) [Vol rate/Area]10 mL/min/{1.73_m2}Low- PINFUniHolzer Medical Center – JacksonGlucose [Mass/Vol]199 mg/uFOvod03 - 99 mg/dLUnAshtabula County Medical CenterInterpretation and review of laboratory resultsAbnormalUniversIndiana University Health Bloomington HospitalPhosphate [Mass/Vol]6.8 mg/dLHigh2.5 - 4.9 mg/dLUnAshtabula County Medical CenterPotassium [Moles/Vol]5.9 mmol/LHigh3.5 - 5.3 mmol/L [facility] HospitalSodium [Moles/Vol]131 mmol/ZSnm692 - 145 mmol/L [facility] HospitalUrea nitrogen [Mass/Vol]49 mg/dLHigh6 - 23 mg/dLGreen Cross HospitalUnAshtabula County Medical CenterAlbumin BCP dye [Mass/Vol]3.3 g/dLLow3.4-5.0[facility] HospitalComment on above:Performed By: #### 63514-3 #### HEAVEN Goyal (29027) [facility] ([facility] [facility]) [address] [place] [address] 07073Zrcvn gap [Moles/Vol]22 mmol/FRbux19-31SaryvwnywaTuscarawas HospitalComment on above:Performed By: #### 77881-0 #### HEAVEN Goyal (62475) [facility] ([facility] [facility]) [address] [place] [address] 93772Egbbpbi [Mass/Vol]8.7 mg/dLNormal8.6-10.6UnTuscarawas HospitalComment on above:Performed By: #### 94197-0 #### HEAVEN Goyal (52703) [facility] ([facility]) [address] [place] [address] 62467Zmrhqyvh [Moles/Vol]98 mmol/EOhsxye01-634DcdhikkgqpTuscarawas HospitalComment on above:Performed By: #### 00820-3 #### HEAVEN Goyal (72202) [facility] ([facility] [facility]) [address] [place] [address] 08741RA8 [Moles/Vol]17 mmol/ANno40-86DnkvraywbsPremier Health Miami Valley HospitalComment on above:Performed By: #### 92832-3 #### HEAVEN Goyal (21184) [facility] ([facility] [facility]) [address] [place] [address] 50556Qegefzptpw [Mass/Vol]5.03 mg/dLHigh0.50-1.05UnTuscarawas HospitalComment on above:Performed By: #### 60199-0 #### HEAVEN Goyal (69840) [facility] ([facility]) [address] [place], [place] [address]Zisnmeknob filtration rate10 mL/min/1.73m*2Low>60UnTuscarawas HospitalComment on above:Result Comment: Calculations of estimated GFR are performed using the 2020 CKD-EPI Study Refit equation without the race variable for the IDMS-Traceable creatinine methods. https://jasn.asnjournals.org/content//ASN.5461346549Lvwdecmtj By: #### 14450-6 #### HEAVEN Goyal (45542) [facility] ([facility]) [address] [place] [address] 373[address]Oqrkqwy [Mass/Vol]199 mg/iWYsld44-56OkwtojsbivTuscarawas HospitalComment on above:Performed By: #### 37993-2 #### HAEVEN Goyal (64579) [facility] ([facility]) [address] [place], [place] [address]Qxftueyoe [Mass/Vol]6.8 mg/dLHigh2.5-4.9UnTuscarawas HospitalComment on above:Performed By: #### 54309-0 #### HEAVEN Goyal (48854) [facility] ([facility] [facility]) [address] [place] [address] 75306Ptszmkcik [Moles/Vol]5.9 mmol/LHigh3.5-5.3[facility] HospitalComment on above:Performed By: #### 32400-9 #### HEAVEN Goyal (88969) [facility] ([facility] [facility]) [address] [place] [address] 67994Gxbean [Moles/Vol]131 mmol/ENfh968-273SqlofyqswyTuscarawas HospitalComment on above:Performed By: #### 97135-4 #### HEAVEN Goyal (58968) [facility] ([facility] [facility]) [address] [place] [address] 17981Wxyt nitrogen [Mass/Vol]49 mg/dLHigh6-23UnTuscarawas HospitalComment on above:Performed By: #### 37402-3 #### HEAVEN CEDRICK Goyal (97624) [facility] ([facility]) [address] [place], [place] [address]TRANSTHORACIC ECHO (TTE) COMPLETEon 44-35-5134STXHUZZYLVPTB ECHO (TTE) [facility], [address] [place], [place] [id number] and TRANSTHORACIC ECHOCARDIOGRAM REPORT Patient Name: ASA THOMPSON Reading Physician: [id number] Gilmar Branham MD Study Date: 08/28/2025 Ordering Provider: [id number] SPENCER KONG MRN/PID: [id number] Fellow: [id number] Arnel Ayala MD Nurse: Date of /Age: 11 1970 Health Promoter: Elvie CHENG Gender assigned at F Additional Staff: : Height: 165.10 cm Admit Date: 08/26/2025 Weight: 126.10 kg Admission Status: Inpatient - STAT BSA / BMI: 2.28 m2 / 46.26 kg/m2 Blood Pressure: 104/61 mmHg Department Location: [facility] Study Type: TRANSTHORACIC ECHO (TTE) COMPLETE Diagnosis/ICD: 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 Study Detail: The following Echo studies were performed: M-Mode, Doppler and color flow. Optison used as a contrast agent for endocardial border definition. Total contrast used for this procedure was 3 mL via IV push. Critical Event [...] aortic valve area by VTI is 1.81 cm?? with a peak velocity of 2.09 m/s. [...] valve regurgitation. Aortic valve area by VTI is 1.81 cm2 with peak and mean gradients of 17 mmHg and 8 mmHg, respectively. SVi is notably low at 17 mL/m2 which may explain the low velocities. DI of 0.71 is supportive of mild . The calcificat ion and thickening is present mainly at the [...] left ventricular wall motion abnormalities. 3. Entire infe (more content not included)...NormalUnTuscarawas HospitalUS Heart Transthoracicon 57-56-2697Ieqwlk Valve Area by Continuity of Peak Velocity1.30 jc6FpuzzgtttkGreen Cross Hospital Work Phone: [phone] Valve Area by Continuity of VTI1.81 cm2 [facility] Work Phone: [phone] mn ddmi3jrSaKdowjfteitGreen Cross Hospital Work Phone: [phone] pk eayl09alAqMwjkldzvqmAshtabula County Medical Center Work Phone: [phone] pk vel2.09 m/[facility] Work Phone: [phone] vol index A/L31.5 ml/t9LtlwksqrzkAshtabula County Medical Center Work Phone: [phone] A4C EF57.7UnAshtabula County Medical Center Work Phone: [phone] EF58 %[facility] Work Phone: [phone] cmGreen Cross Hospital Work Phone: [phone] diam1.80 cmUnAshtabula County Medical Center Work Phone: [phone] E/A ratio0.94[facility] Work Phone: [phone] Cross Hospital Work Phone: [phone] County Medical Center Work Phone: [phone] platinum renal with doppleron 08-76-8937JW MMODAL MMODALUnAshtabula County Medical Center Work Phone: US platinum renal with dopplerOrdered By: Goran Bowie on 78-87-0771XpqwssdhlsGreen Cross Hospital Work Phone: US.doppler Carotid arteries - bilateralon 08-28-2025 Radiology Study observation (narrative)[facility] Work Phone: VASC US CAROTID ARTERY DUPLEX BILATERALon 08-28-2025 [facility] US CAROTID ARTERY DUPLEX BILATERALInterpreted By: Alex Moreno and Liu Scott STUDY: [facility] US CAROTID ARTERY DUPLEX BILATERAL; 08/28/2025 4:47 pm INDICATION: Signs/Symptoms:JAMESON - please perform at bedside - do not take patient out of unit. ,I65.23 Occlusion and stenosis of bilateral carotid arteries COMPARISON: None. ACCESSION NUMBER(S): [id number] ORDERING CLINICIAN: SPENCER KONG TECHNIQUE: Vascular ultrasound of the extracranial carotid [...] Moore MD. This study was interpreted at [place], [place]. The velocity criteria are extrapolated from diameter data as defined by the Society of Radiologists in Ultrasound Consensus Conference Radiology 2003; 229;340-346. MACRO: None Signed by: Alex Moreno 08/29/2025 5:25 PM Dictation workstation: [id number]a Fostoria Community HospitalXR CHEST 1 VIEWon [id number] CHEST 1 VIEWInterpreted By: Colin Rm and Stevens Alex STUDY: XR CHEST 1 VIEW; 08/28/2025 7:01 am INDICATION: Signs/Symptoms:Confirm aortic balloon pump placement. COMPARISON: XR chest 08/26/2025 ACCESSION NUMBER(S): [id number] ORDERING CLINICIAN: SPENCER KNOG FINDINGS: AP radiograph of the chest was [...] DO PGY-3. This study was interpreted at [place], [place]. MACRO: None Signed by: Colin Rm 08/28/2025 7:34 AM Dictation workstation: [id number]a Fostoria Community HospitalXR Chest Single viewon 84-38-9132NV MMODALUH MMODALUnAshtabula County Medical Center Work Phone: UnAshtabula County Medical Center Work Phone: Radiology Study observation (narrative)[facility] Work Phone: basic metabolic 2000 panelon 45-95-2386Uxllo gap [Moles/Vol]20 mmol/MGbzuyi70-31RpfiutzmlqTuscarawas Hospital Comment on above:Performed By: #### 2341-6 #### HEAVEN Goyal (88007) [facility] ([facility]) [address] [place], [place] [address]Vabibki [Mass/Vol]9.0 mg/dLNormal8.6-10.6[facility] HospitalComment on above:Performed By: #### 2341-6 #### HEAVEN PHILIP L (96621) [facility] ([facility]) [address] [place], [place] [address]Yixtgwig [Moles/Vol]100 mmol/IUgvttz72-959RgmbyhodpeTuscarawas HospitalComment on above:Performed By: #### 2341-6 #### HEAVEN PHILIP L ([id number]) [facility] ([facility]) [address] [place] [address] 78691KA0 [Moles/Vol]20 mmol/OFiy34-99XtsuruoegxTuscarawas HospitalComment on above:Performed By: #### 2341-6 #### HEAVEN PHILIP L (15797) [facility] ([facility]) [address] [place] [address] 38722Manpwxkbwn [Mass/Vol]2.51 mg/dLHigh0.50-1.05UnTuscarawas HospitalComment on above:Performed By: #### 2341-6 #### HEAVEN Goyal (96442) [facility] ([facility]) [address] [place] [address] 08[address]Jospldftym filtration rate22 mL/min/1.73m*2Low>60UnTuscarawas HospitalComment on above:Result Comment: Calculations of estimated GFR are performed using the 2020 CKD-EPI Study Refit equation without the race variable for the IDMS-Traceable creatinine methods. https://jasn.asnjournals.org/content//ASN.1722689668Ozhtoqves By: #### 2341-6 #### HEAVEN PHILIP L (21545) [facility] ([facility]) [address] [place], [place] [address]Qowyzbg [Mass/Vol]242 mg/aKPsau29-17FiinzkdxuwTuscarawas HospitalComment on above:Performed By: #### 2341-6 #### HEAVEN Goyal (16248) [facility] ([facility]) [address] [place] [address] 51379Ukxodvtqx [Moles/Vol]4.7 mmol/LNormal3.5-5.3Prem[facility] HospitalComment on above:Performed By: #### 2341-6 #### HEAVEN Goyal (63535) [facility] ([facility]) [address] [place] [address] 46170Rocnns [Moles/Vol]135 mmol/DYsu843-445SsfhxidyjeTuscarawas HospitalComment on above:Performed By: #### 2341-6 #### HEAVEN Goyal (15990) [facility] ([facility]) [address] [place] [address] 81161Jpnb nitrogen [Mass/Vol]34 mg/dLHigh6-23UnTuscarawas HospitalComment on above:Performed By: #### 2341-6 #### HEAVEN Goyal (27964) [facility] ([facility]) [address] [place] [address] 04709EGZ W Auto Differential panel (Bld)on 45-43-5007Swutlznsp (Bld) [#/Vol]0.03 x10*3/uLNormal0.00-0.10UnTuscarawas HospitalComment on above:Performed By: #### 2341-6 #### HEAVEN Goyal (54758) [facility] ([facility]) [address] [place] [address] 90970Tpxshsopu/100 WBC (Bld)0.3 %Normal0.0-2.0[facility] HospitalComment on above:Performed By: #### 2341-6 #### HEAVEN Goyal (91757) [facility] ([facility]) [address] [place] [address] 46559Umtrjcupxeh (Bld) [#/Vol]0.00 x10*3/uLNormal0.00-0.70 [facility] HospitalComment on above:Performed By: #### 2341-6 #### HEAVEN Goyal (40123) [facility] ([facility]) [address] [place], [place] [address]Doszjlpctzt/100 WBC (Bld)0.0 %Normal0.0-6.0UnTuscarawas HospitalComment on above:Performed By: #### 2341-6 #### HEAVEN Goyal (11122) [facility] ([facility]) [address] [place] [address] 84927Uaxsztetjpx distribution width (RBC) [Ratio]13.1 %Normal 11.5-14.5UnTuscarawas HospitalComment on above:Performed By: #### 2341-6 #### HEAVEN Goyal (76151) [facility] ([facility]) [address] [place] [address] 70799Aphdxopwyx (Bld) [Volume fraction]29.6 %Low36.0-46.0 [facility] HospitalComment on above:Performed By: #### 2341-6 #### HEAVEN Goyal (03706) [facility] ([facility]) [address] [place] [address] 76[address]Yalersjeey (Bld) [Mass/Vol]10.4 g/dLLow12.0-16.0UnTuscarawas HospitalComment on above:Performed By: #### 2341-6 #### HEAVEN Goyal (52579) [facility] ([facility]) [address] [place] [address] 27260Ezalchbz granulocytes (Bld) [#/Vol]0.08 x10*3/uLNormal 0.00-0.70UnTuscarawas HospitalComment on above:Performed By: #### 2341-6 #### HEAVEN Goyal (75763) [facility] ([facility]) [address] [place] [address] 65594Jybaqewe granulocytes/100 WBC (Bld)0.7 %Normal0.0-0.9 [facility] HospitalComment on above:Result Comment: Immature Granulocyte Count (IG) includes promyelocytes, myelocytes and metamyelocytes but does not include bands. Percent differential counts (%) should be interpreted in the context of the absolute cell counts (cells/UL). Performed By: #### 2341-6 #### HEAVEN Goyal (67288) [facility] ([facility]) [address] [place], [place] [address]Oqxnaktsmjr (Bld) [#/Vol]1.92 x10*3/uLNormal1.20-4.80 [facility] HospitalComment on above:Performed By: #### 2341-6 #### HEAVEN Goyal (03454) [facility] ([facility]) [address] [place], [place] [address]Uvnbihlhbgi/100 WBC (Bld)16.9 %Oowlmh49.0-44.0UnTuscarawas HospitalComment on above:Performed By: #### 2341-6 #### HEAVEN Goyal (63081) [facility] ([facility]) [address] [place], [place] [address]DTN (RBC) [Entitic mass]28.6 lpCpfnkn00.0-34.0UnTuscarawas HospitalComment on above:Performed By: #### 2341-6 #### HEAVEN Goyal (54354) [facility] ([facility]) [address] [place] [address] 92732PZID (RBC) [Mass/Vol]35.1 g/eOUykcnk07.0-36.0UnTuscarawas HospitalComment on above:Performed By: #### 2341-6 #### HEAVEN Goyal ([id number]) [facility] ([facility]) [address] [place], [place] [address]JRV (RBC) [Entitic vol]81 aIBhcsxm83-694QtvosdtsaxTuscarawas HospitalComment on above:Performed By: #### 2341-6 #### HEAVEN Goyal ([id number]) [facility] ([facility]) [id number] [place] [address] 14230Gmnahgqtd (Bld) [#/Vol]0.86 x10*3/uLNormal0.10-1.00UnTuscarawas HospitalComment on above:Performed By: #### 2341-6 #### HEAVEN Goyal ([id number]) [facility] ([facility]) [address] [place], [place] [address]Pamgvfjit/100 WBC (Bld)7.6 %Normal2.0-10.0UnTuscarawas HospitalComment on above:Performed By: #### 2341-6 #### HEAVEN Goyal (13554) [facility] ([facility]) [id number] [place] [address] 86184Tmbzimjshyk (Bld) [#/Vol]8.44 x10*3/uLHigh1.20-7.70UnTuscarawas HospitalComment on above:Result Comment: Percent differential counts (%) should be interpreted in the context of the absolute cell counts (cells/uL).Performed By: #### 2341-6 #### HEAVEN Goyal ([id number]) [facility] ([facility]) [id number] [place] [address]Jssvvhrcszg/100 WBC (Bld)74.5 %Goyuui36.0-80.0UnTuscarawas HospitalComment on above:Performed By: #### 2341-6 #### HEAVEN Goyal ([id number]) [facility] ([facility]) [id number] [place] [address] 67299Fxsbxqagh RBC/100 WBC (Bld) [Ratio]0.0 /100 WBCsNormal0.0-0.0 [facility] HospitalComment on above:Performed By: #### 2341-6 #### HEAVEN Goyal (38853) [facility] ([facility]) [address] [place], [place] [address]Cimosvrme (Bld) [#/Vol]303 x10*3/hVPpfrrz736-875HkjorlhdjpTuscarawas HospitalComment on above:Performed By: #### 2341-6 #### HEAVEN Goyal ([id number]) [facility] ([facility]) [address] [place], [place] [address]QFE (Bld) [#/Vol]3.64 x10*6/uLLow4.00-5.20[facility] HospitalComment on above:Performed By: #### 2341-6 #### HEAVEN Goyal ([id number]) [facility] ([facility]) [id number] [place] [address] 82542WVS (Bld) [#/Vol]11.3 x10*3/uLNormal4.4-11.3[facility] HospitalComment on above:Performed By: #### 2341-6 #### HEAVEN Goyal ([id number]) [facility] ([facility]) [id number] [place] [address] 70751Vvygrglrsern 41-10-3220Crdfyguwk (Vitamin B12) [Mass/Vol]224 pg/vEGeanbx758-649WjssuxjncbPremier Health Miami Valley HospitalComment on above: Performed By: #### 3274-8 #### HEAVEN Goyal ([id number]) [facility] ([facility]) [address] [place] [address] 80886KMM 12-LEADon 75-04-7858GPN 12-LEADVentricular Rate 98 Atrial Rate 98 P-R Interval 136 QRS Duration 78 Q-T Interval 342 QTC Calculation(Bazett) 436 P Pigeon 57 R Pigeon 5 T Pigeon 104 QRS Count 16 Q Onset 219 P Onset 151 P Offset 199 T Offset 390 QTC Fredericia 402 Diagnosis Normal sinus rhythm Septal infarct (cited on or before 27-AUG-2025) Inferior infarct (cited on or before 27-AUG-2025) T wave abnormality, consider lateral ischemia ACUTE [place] / STEMI Consider right ventricular involvement in acute inferior infarct Abnormal ECG When compared with ECG of 27-AUG-2025 13:57, Serial changes of evolving Septal infarct Present Serial changes of Inferior infarct Present Confirmed by Randolph Crenshaw ([id number]) on 09/01/2025 11:01:11 PMNormalVirtua Our Lady of Lourdes Medical CenterECG 12-LEADVentricular Rate 85 Atrial Rate 85 P-R Interval 138 QRS Duration 82 Q-T Interval 374 QTC Calculation(Bazett) 445 P Pigeon 22 R Pigeon -13 T Pigeon 94 QRS Count 14 Q Onset 222 P Onset 153 P Offset 196 T Offset 409 QTC Fredericia 420 Diagnosis Normal sinus rhythm Inferior infarct (cited on or before 27-AUG-2025) Anterior infarct (cited on or before 27-AUG-2025) ACUTE AZ / STEMI Consider right ventricular involvement in acute inferior infarct Abnormal ECG When compared with ECG of 27-AUG-2025 04:08, Serial changes of evolving Anterior infarct Present Serial changes of Inferior infarct Present Confirmed by Flower Randolph ([id number]) on 09/01/2025 10:59:21 PMNNew Ulm Medical CenterECG 12-LEADVentricular Rate 98 Atrial Rate 98 P-R Interval 152 QRS Duration 66 Q-T Interval 342 QTC Calculation(Bazett) 436 P Pigeon 61 R Pigeon -4 T Pigeon 86 QRS Count 17 Q Onset 230 P Onset 154 P Offset 204 T Offset 401 QTC Fredericia 402 Diagnosis Age and gender specific ECG analysis Normal sinus rhythm Inferior infarct , possibly acute Anteroseptal infarct (cited on or before 26-AUG-2025) ACUTE [place] / STEMI Consider right ventricular involvement in acute inferior infarct Abnormal ECG When compared with ECG of 26-AUG-2025 21:53, Inferior infarct is now Present Serial changes of evolving Anteroseptal infarct Present Confirmed by Tk Crenshawo (1205) on 09/01/2025 10:58:19 [facility] HospitalFerritinon 18-79-3164Fttkdjne [Mass/Vol]85 ng/mLNormal8-150 [facility] HospitalComment on above:Performed By: #### 3274-8 #### HEAVEN Goyal ([id number]) [facility] ([facility]) [address] [place], [place] [address]Folateon 67-25-5201Opjbjw [Mass/Vol]13.5 ng/mLNormal>5.0 [facility] HospitalComment on above:Order Comment: The therapeutic reference range for UFH may be either 0.3-0.6 IU/mL or 0.3-0.7 IU/mLbased on the clinical setting for anticoagulant therapy and the associated nomogram used. For Heparin dosing guidelines based on clinical scenario and Heparin Assay results, please refer to local Pharmacy and the [facility] Guidelines for Anticoagulation Therapy available on the [facility] intranet at: [email or web address] By: #### 3274-8 #### HEAVEN Goyal (66089) [facility] ([facility]) [address] [place], [place] [id number] panel (BldV)on 75-42-1823Tjbof gap 4 (BldV) [Moles/Vol] 14.0 mmol/L10.0 - 25.0 mmol/[facility] HospitalBase excess Calc (BldV) [Moles/Vol]-3.9000 mmol/LLow-2.0 - 3.0 mmol/[facility] HospitalCalcium.ionized (BldV) [Moles/Vol]1.22 mmol/L1.10 - 1.33 mmol/L [facility] HospitalChloride (BldV) [Moles/Vol]102 mmol/L98 - 107 mmol/[facility] HospitalCO2 (BldV) [Partial pressure]40 mm[Hg]Low [facility] HospitalGlucose [Mass/Vol]196 mg/cOJkpb54 - 99 mg/dL [facility] HospitalHCO3 (Bld) [Moles/Vol]21.6 mmol/LLow22.0 - 26.0 mmol/[facility] HospitalHematocrit Est (Bld) [Volume fraction] 32.0 %Low36.0 - 46.0 %[facility] HospitalHemoglobin (Bld) [Mass/Vol]10.8 g/dLLow12.0 - 16.0 g/dLGreen Cross HospitalInhaled oxygen exqeqcqpjzynf27 %[facility] HospitalInterpretation and review of laboratory resultsAbnormalUniversIndiana University Health Bloomington HospitalLactate (BldV) [Moles/Vol]1.8 mmol/L0.4 - 2.0 mmol/[facility] Oxygen (BldV) [Partial pressure]48 mm[Hg]HighHCA Houston Healthcare Southeast Knapp Oxygen saturation in Venous blood72 %45 - 75 %[facility] Oxyhemoglobin (BldV) [Mass fraction]71.0 %45.0 - 75.0 %[facility] HospitalpH (BldV)7.34 [pH]7.33 - 7.43 [facility] Potassium (BldV) [Moles/Vol]5.6 mmol/LHigh3.5 - 5.3 mmol/[facility] HospitalSodium (BldV) [Moles/Vol]132 mmol/LPib223 - 145 mmol/[facility] HospitalUnAshtabula County Medical CenterAnion gap 4 (BldV) [Moles/Vol]14.0 mmol/UJjgbso85.0-25.0[facility] HospitalComment on above:Performed By: #### 39469-6 #### HEAVEN Goyal ([id number]) [facility] ([facility]) [address] [place] [address] 57071Pouk excess Calc (BldV) [Moles/Vol]-3.9000 mmol/LLow-2.0-3.0 [facility] HospitalComment on above:Performed By: #### 82967-9 #### HEAVEN Goyal ([id number]) [facility] ([facility]) [address] [place] [address] 93387Qlqwgik.ionized (BldV) [Moles/Vol]1.22 mmol/LNormal1.10-1.33 [facility] HospitalComment on above:Performed By: #### 01147-2 #### HEAVEN Goyal (49347) [facility] ([facility]) [id number] [place] [address] 52710Igdkfuew (BldV) [Moles/Vol]102 mmol/SOocany20-361CftakhkhxbPremier Health Miami Valley HospitalComment on above:Performed By: #### 82877-1 #### HEAVEN Goyal (07755) [facility] ([facility]) [address] [place] [address] 76240KS3 (BldV) [Partial pressure]40 mm SjKki08-07MwwdbusbdmTuscarawas HospitalComment on above:Performed By: #### 45887-0 #### HEAVEN Goyal (73389) [facility] ([facility]) [address] [place] [address] 95026Ydzltgi [Mass/Vol]196 mg/hRCzcv72-22UwffminlbpPremier Health Miami Valley HospitalComment on above:Performed By: #### 31502-7 #### HEAVEN Goyal ([id number]) [facility] ([facility]) [address] [place] [address] 04648NYM9 (Bld) [Moles/Vol]21.6 mmol/LLow22.0-26.0UnTuscarawas HospitalComment on above:Performed By: #### 28893-3 #### HEAVEN Goyal (08442) [facility] ([facility]) [address] [place] [address] 64192Ozqizqdgjo Est (Bld) [Volume fraction]32.0 %Low36.0-46.0 [facility] HospitalComment on above:Performed By: #### 48285-4 #### HEAVEN Goyal ([id number]) [facility] ([facility]) [address] [place] [address] 25909Yysapxrybs (Bld) [Mass/Vol]10.8 g/dLLow12.0-16.0UnTuscarawas HospitalComment on above:Performed By: #### 26434-3 #### HEAVEN Goyal (81691) [facility] ([facility]) [address] [place] [address] 87815Akqpujq oxygen cjiwxsuqlrysw76 %NormalUnTuscarawas HospitalComment on above:Performed By: #### 58262-8 #### HEAVEN Goyal ([id number]) [facility] ([facility]) [address] [place] [address] 21104Wsphgca (BldV) [Moles/Vol]1.8 mmol/LNormal0.4-2.0[facility] HospitalComment on above:Performed By: #### 57500-3 #### HEAVEN Goyal (17456) [facility] ([facility]) [address] [place], [place] [address]Jcztbl (BldV) [Partial pressure]48 mm XoLdmg08-65FbmjjtubmtTuscarawas HospitalComment on above:Performed By: #### 42894-2 #### HEAVEN Goyal (12641) [facility] ([facility]) [address] [place] [address] 97929Nnzbzk saturation in Venous blood72 %Ixtaqb91-90CxlhduligsTuscarawas HospitalComment on above:Performed By: #### 07163-9 #### HEAVEN Goyal ([id number]) [facility] ([facility]) [address] [place] [address] 84030Ogljzphovosqm (BldV) [Mass fraction]71.0 %Smzbse75.0-75.0 [facility] HospitalComment on above:Performed By: #### 24703-3 #### HEAVEN Goyal (77104) [facility] ([facility]) [address] [place] [address] 35243tQ (BldV)7.34 [pH]Normal7.33-7.43[facility] HospitalComment on above:Performed By: #### 48467-4 #### HEAVEN Goyal (49740) [facility] ([facility]) [id number] [place] [address] 49329Jbgbaeyun (BldV) [Moles/Vol]5.6 mmol/LHigh3.5-5.3UnTuscarawas HospitalComment on above:Performed By: #### 73520-5 #### HEAVEN Goyal (40227) [facility] ([facility]) [id number] [place] [address] 31429Kydozh (BldV) [Moles/Vol]132 mmol/PFxd498-879LaltwtgnvcTuscarawas HospitalComment on above:Performed By: #### 56167-7 #### HEAVEN Goyal (96279) [facility] ([facility]) [id number] [place] [address] 15060Skxt excess Calc (BldV) [Moles/Vol]-3.0000 mmol/LLow-2.0-3.0 [facility] HospitalComment on above:Performed By: #### 45428-8 #### HEAVEN Goyal (70781) [facility] ([facility]) [address] [place] [address] 41903PN8 (BldV) [Partial pressure]42 mm ZjUlyezx14-75GzhzglmawqTuscarawas HospitalComment on above:Performed By: #### 22665-2 #### HEAVEN Goyal (29276) [facility] ([facility]) [id number] [place] [address] 90924JOK9 (Bld) [Moles/Vol]22.7 mmol/UTtkdly16.0-26.0UnTuscarawas HospitalComment on above:Performed By: #### 99625-8 #### HEAVEN Gyoal (58985) [facility] ([facility]) [address] [place] [address] 50143Azvryv (BldV) [Partial pressure]47 mm XhMbkz28-58PlojhzjoznTuscarawas HospitalComment on above:Performed By: #### 27233-1 #### HEAVEN Goyal (77604) [facility] ([facility]) [id number] [place] [address] 28384Xqcrol saturation in Venous blood71 %Agdvut52-04FqrlvcxexvTuscarawas HospitalComment on above:Performed By: #### 40994-1 #### HEAVEN Goyal (46101) [facility] ([facility]) [address] [place] [address] 35123Jzlzytodomywz (BldV) [Mass fraction]69.8 %Pllaco64.0-75.0 [facility] HospitalComment on above:Performed By: #### 70351-9 #### HEAVEN Goyal (82860) [facility] ([facility]) [address] [place] [address] 07937bF (BldV)7.34 [pH]Normal7.33-7.43UnTuscarawas HospitalComment on above:Performed By: #### 32377-7 #### HEAVEN Goyal (83621) [facility] ([facility]) [address] [place], [place] [address]Anion gap 4 (BldV) [Moles/Vol]15.0 mmol/L10.0 - 25.0 mmol/L [facility] HospitalBase excess Calc (BldV) [Moles/Vol]-5.1000 mmol/LLow-2.0 - 3.0 mmol/[facility] HospitalCalcium.ionized (BldV) [Moles/Vol]1.16 mmol/L1.10 - 1.33 mmol/[facility] Chloride (BldV) [Moles/Vol]101 mmol/L98 - 107 mmol/[facility] HospitalCO2 (BldV) [Partial pressure]40 mm[Hg][facility] HospitalGlucose [Mass/Vol]253 mg/bQQsum60 - 99 mg/dLGreen Cross HospitalHCO3 (Bld) [Moles/Vol]20.6 mmol/LLow22.0 - 26.0 mmol/[facility] HospitalHematocrit Est (Bld) [Volume fraction]34.0 %Low36.0 - 46.0 %[facility] HospitalHemoglobin (Bld) [Mass/Vol]11.3 g/dLLow12.0 - 16.0 g/dLGreen Cross HospitalInhaled oxygen sebnjplfppdub46 % [facility] HospitalInterpretation and review of laboratory results AbnormalUnAshtabula County Medical CenterLactate (BldV) [Moles/Vol]2.7 mmol/L High0.4 - 2.0 mmol/[facility] HospitalOxygen (BldV) [Partial pressure]49 mm[Hg]HighUnAshtabula County Medical CenterOxygen saturation in Venous blood75 %45 - 75 %[facility] HospitalOxyhemoglobin (BldV) [Mass fraction]73.5 %45.0 - 75.0 %[facility] HospitalpH (BldV)7.32 [pH]Low7.33 - 7.43 pHUnAshtabula County Medical CenterPotassium (BldV) [Moles/Vol]5.2 mmol/L3.5 - 5.3 mmol/LUniversity Hospitals of ClevelandSodium (BldV) [Moles/Vol]131 mmol/AKfn709 - 145 mmol/LUnFostoria City HospitalAnion gap 4 (BldV) [Moles/Vol]15.0 mmol/LNormal 10.0-25.0[facility] HospitalComment on above:Performed By: #### 15506-4 #### HEAVEN Goyal (84024) [facility] ([facility]) [address] [place] [address] 10828Arhc excess Calc (BldV) [Moles/Vol]-5.1000 mmol/LLow-2.0-3.0 [facility] HospitalComment on above:Performed By: #### 69388-7 #### HEAVEN Goyal (08483) [facility] ([facility]) [address] [place] [address] 71923Wcallym.ionized (BldV) [Moles/Vol]1.16 mmol/LNormal1.10-1.33 [facility] HospitalComment on above:Performed By: #### 23171-7 #### HEAVEN Goyal (43848) [facility] ([facility]) [address] [place] [address] 28067Grjtkqna (BldV) [Moles/Vol]101 mmol/LFzjyel02-174BmpcvefkykPremier Health Miami [facility] HospitalComment on above:Performed By: #### 59468-8 #### HEAVEN Goyal (35649) [facility] ([facility]) [address] [place] [address] 28131UW4 (BldV) [Partial pressure]40 mm PxFfb68-80BjefhhrptuTuscarawas HospitalComment on above:Performed By: #### 09554-1 #### HEAVEN Goyal (09341) [facility] ([facility]) [address] [place] [address] 84325Jdpbpew [Mass/Vol]253 mg/qDJvtx08-58LqdhatzeqvTuscarawas HospitalComment on above:Performed By: #### 73041-3 #### HEAVEN Goyal (61569) [facility] ([facility]) [address] [place] [address] 67699MIW9 (Bld) [Moles/Vol]20.6 mmol/LLow22.0-26.0[facility] HospitalComment on above:Performed By: #### 90547-0 #### HEAVEN Goyal (22127) [facility] ([facility]) [address] [place] [address] 55559Kvamskcdwj Est (Bld) [Volume fraction]34.0 %Low36.0-46.0 [facility] HospitalComment on above:Performed By: #### 57056-9 #### HEAVEN Goyal (55326) [facility] ([facility]) [address] [place] [address] 13037Jvewrymiyi (Bld) [Mass/Vol]11.3 g/dLLow12.0-16.0[facility] HospitalComment on above:Performed By: #### 49505-1 #### HEAVEN Goyal (53458) [facility] ([facility]) [address] [place] [address] 16196Fzgfkpe oxygen coeqzngrcvirg22 %NormalPremier Health Miami Valley HospitalComment on above:Performed By: #### 20364-4 #### HEAVEN Goyal (10246) [facility] ([facility]) [address] [place] [address] 88598Egxgqph (BldV) [Moles/Vol]2.7 mmol/LHigh0.4-2.0[facility] HospitalComment on above:Performed By: #### 49035-9 #### HEAVEN Goyal (35158) [facility] ([facility]) [address] [place] [address] 77756Xgqbqb (BldV) [Partial pressure]49 mm UtZkqz93-05MdpkpxrhcvPremier Health Miami [facility] HospitalComment on above:Performed By: #### 68177-5 #### HEAVEN Goyal (14972) [facility] ([facility]) [address] [place] [address] 90596Nnuqre saturation in Venous blood75 %Apinpy94-59BilytuavwtTuscarawas HospitalComment on above:Performed By: #### 61969-8 #### HEAVEN Goyal (10609) [facility] ([facility]) [address] [place] [address] 31850Msqdulksxjtxb (BldV) [Mass fraction]73.5 %Dbmjqw89.0-75.0 [facility] HospitalComment on above:Performed By: #### 16619-9 #### HEAVEN Goyal (94231) [facility] ([facility]) [address] [place] [address] 54145sY (BldV)7.32 [pH]Low7.33-7.43UnTuscarawas HospitalComment on above:Performed By: #### 42057-5 #### HEAVEN Goyal (10045) [facility] ([facility]) [address] [place] [address] 99410Fuegiwebq (BldV) [Moles/Vol]5.2 mmol/LNormal3.5-5.3UnTuscarawas HospitalComment on above:Performed By: #### 11530-7 #### HEAVEN Goyal (12060) [facility] ([facility]) [address] [place] [address] 94647Hfachr (BldV) [Moles/Vol]131 mmol/TBaq638-115PlrogqgkgrTuscarawas HospitalComment on above:Performed By: #### 60972-9 #### HEAVEN Goyal (72509) [facility] ([facility]) [address] [place] [address] 46792Wxazq gap 4 (BldV) [Moles/Vol]12.0 mmol/L10.0 - 25.0 mmol/L [facility] HospitalBase excess Calc (BldV) [Moles/Vol]-4.4000 mmol/LLow-2.0 - 3.0 mmol/[facility] HospitalCalcium.ionized (BldV) [Moles/Vol]1.16 mmol/L1.10 - 1.33 mmol/[facility] Chloride (BldV) [Moles/Vol]103 mmol/L98 - 107 mmol/[facility] HospitalCO2 (BldV) [Partial pressure]39 mm[Hg]LowGreen Cross HospitalGlucose [Mass/Vol]257 mg/bSHicu80 - 99 mg/dLGreen Cross HospitalHCO3 (Bld) [Moles/Vol]21.0 mmol/LLow22.0 - 26.0 mmol/[facility] HospitalHematocrit Est (Bld) [Volume fraction]32.0 %Low36.0 - 46.0 %[facility] HospitalHemoglobin (Bld) [Mass/Vol]10.6 g/dLLow12.0 - 16.0 g/dLGreen Cross HospitalInhaled oxygen oiyyjtxuhunur70 % [facility] HospitalInterpretation and review of laboratory results AbnormalGreen Cross HospitalLactate (BldV) [Moles/Vol]2.8 mmol/L High0.4 - 2.0 mmol/[facility] HospitalOxygen (BldV) [Partial pressure]43 mm[Hg][facility] HospitalOxygen saturation in Venous blood62 %45 - 75 %[facility] Cross HospitalOxyhemoglobin (BldV) [Mass fraction]60.7 %45.0 - 75.0 %[facility] Cross HospitalpH (BldV)7.34 [pH] 7.33 - 7.43 pHGreen Cross HospitalPotassium (BldV) [Moles/Vol]5.4 mmol/LHigh3.5 - 5.3 mmol/[facility] HospitalSodium (BldV) [Moles/Vol]131 mmol/SZux784 - 145 mmol/[facility] HospitalAnion gap 4 (BldV) [Moles/Vol]12.0 mmol/LNormal 10.0-25.0[facility] HospitalComment on above:Performed By: #### 52951-6 #### HEAVEN Goyal (37043) [facility] ([facility]) [id number] [place], [place] [address]Base excess Calc (BldV) [Moles/Vol]-4.4000 mmol/LLow-2.0-3.0 [facility] HospitalComment on above:Performed By: #### 12672-1 #### HEAVEN Goyal (16358) [facility] ([facility]) [address] [place], [place] [address]Vofkohf.ionized (BldV) [Moles/Vol]1.16 mmol/LNormal1.10-1.33 [facility] HospitalComment on above:Performed By: #### 95643-9 #### HEAVEN Goyal ([id number]) [facility] ([facility]) [id number] [place] [address]Yesviefc (BldV) [Moles/Vol]103 mmol/ZKqwdrv66-906UbqpxsnajdTuscarawas HospitalComment on above:Performed By: #### 73901-1 #### HEAVEN Goyal ([id number]) [facility] ([facility]) [id number] [place] [address] [id number] (BldV) [Partial pressure]39 mm QlHwb47-85QxtmeesgbfPremier Health Miami [facility] HospitalComment on above:Performed By: #### 18061-4 #### HEAVEN Goyal ([id number]) [facility] ([facility]) [id number] [place] [address] 54594Pdgekej [Mass/Vol]257 mg/zXVfgm37-42SyvqdodbmdTuscarawas HospitalComment on above:Performed By: #### 79914-8 #### HEAVEN Goyal ([id number]) [facility] ([facility]) [id number] [place] [address] 02731YDI4 (Bld) [Moles/Vol]21.0 mmol/LLow22.0-26.0[facility] HospitalComment on above:Performed By: #### 87209-9 #### HEAVEN Goyal ([id number]) [facility] ([facility]) [id number] [place] [address] 132[address]Ipbaqzzspc Est (Bld) [Volume fraction]32.0 %Low36.0-46.0 [facility] HospitalComment on above:Performed By: #### 87661-6 #### HEAVEN Goyal ([id number]) [facility] ([facility]) [address] [place], [place] [address]Vedwpulcks (Bld) [Mass/Vol]10.6 g/dLLow12.0-16.0[facility] HospitalComment on above:Performed By: #### 63538-9 #### HEAVEN Goyal ([id number]) [facility] ([facility]) [id number] [place] [address]Geliqle oxygen okxkkenftbuui96 %NormalUnTuscarawas HospitalComment on above:Performed By: #### 68071-3 #### HEAVEN Goyal ([id number]) [facility] ([facility]) [address] [place] [id number] (BldV) [Moles/Vol]2.8 mmol/LHigh0.4-2.0UnTuscarawas HospitalComment on above:Performed By: #### 35822-5 #### HEAVEN Goyal ([id number]) [facility] (SELECT [facility]) [address] [place] [address] 54313Myxrmg (BldV) [Partial pressure]43 mm BuHoceao67-70SkcwaqbdsaTuscarawas HospitalComment on above:Performed By: #### 54659-2 #### HEAVEN Goyal ([id number]) [facility] ([facility]) [address] [place] [address] 33136Sgcjdc saturation in Venous blood62 %Bxapss02-19VblfrohatpTuscarawas HospitalComment on above:Performed By: #### 26987-7 #### HEAVEN Goyal ([id number]) [facility] ([facility]) [id number] [place] [address] 54151Tipnfixjruewv (BldV) [Mass fraction]60.7 %Nqbojv00.0-75.0 [facility] HospitalComment on above:Performed By: #### 69611-2 #### HEAVEN Goyal ([id number]) [facility] ([facility]) [address] [place] [address] 88098bC (BldV)7.34 [pH]Normal7.33-7.43UnTuscarawas HospitalComment on above:Performed By: #### 49279-7 #### HEAVEN Goyal (92652) [facility] ([facility]) [address] [place] [address] 62877Kagdopqge (BldV) [Moles/Vol]5.4 mmol/LHigh3.5-5.3UnTuscarawas HospitalComment on above:Performed By: #### 44869-7 #### HEAVEN Goyal (75726) [facility] ([facility]) [address] [place] [address] 06857Rivhza (BldV) [Moles/Vol]131 mmol/WAsh059-842FtjesrlzfxTuscarawas HospitalComment on above:Performed By: #### 51097-0 #### HEAVEN Goyal (48182) [facility] ([facility]) [address] [place] [address] 52280Diulgvl [Mass/Vol]327 mg/pGAyks75 - 99 mg/dLUnAshtabula County Medical CenterAnion gap 4 (BldV) [Moles/Vol]13.0 mmol/FUuklyv55.0-25.0 [facility] HospitalComment on above:Performed By: #### 04227-6 #### HEAVEN Goyal (18598) [facility] ([facility]) [address] [place] [address] 42891Wagy excess Calc (BldV) [Moles/Vol]-5.5000 mmol/LLow-2.0-3.0 [facility] HospitalComment on above:Performed By: #### 64696-9 #### HEAVEN Goyal (50214) [facility] ([facility]) [address] [place] [address] 76858Mipjsjt.ionized (BldV) [Moles/Vol]1.16 mmol/LNormal1.10-1.33 [facility] HospitalComment on above:Performed By: #### 12935-5 #### HEAEVN Goyal ([id number]) [facility] ([facility]) [address] [place] [address] 16136Nrdsppse (BldV) [Moles/Vol]104 mmol/IChfegw20-680PldrhnxbmiTuscarawas HospitalComment on above:Performed By: #### 62359-0 #### HEAVEN Goyal (72846) [facility] ([facility]) [address] [place] [address] 42826XW0 (BldV) [Partial pressure]38 mm TvDwp00-54RospfycmxtTuscarawas HospitalComment on above:Performed By: #### 77472-6 #### HEAVEN Goyal (12566) [facility] ([facility]) [address] [place] [address] 03938Ojmqygs [Mass/Vol]327 mg/zTCqbv23-13AczfvfarqaPremier Health [facility] HospitalComment on above:Performed By: #### 27063-5 #### HEAVEN Goyal (41190) [facility] ([facility]) [address] [place] [address] 18628KNS7 (Bld) [Moles/Vol]20.0 mmol/LLow22.0-26.0[facility] HospitalComment on above:Performed By: #### 94231-1 #### HEAVEN Goyal (01503) [facility] ([facility]) [address] [place] [address] 29412Xkktijyloj Est (Bld) [Volume fraction]31.0 %Low36.0-46.0 [facility] HospitalComment on above:Performed By: #### 81277-7 #### HEAVEN Goyal (01627) [facility] ([facility]) [address] [place] [address] 69377Foitckkyeh (Bld) [Mass/Vol]10.4 g/dLLow12.0-16.0[facility] HospitalComment on above:Performed By: #### 88555-9 #### HEAVEN Goyal ([id number]) [facility] ([facility]) [address] [place] [address] 89191Twoydvh oxygen pjihgtlgxoyzg43 %NormalUnTuscarawas HospitalComment on above:Performed By: #### 01788-0 #### HEAVEN Goyal (71054) [facility] ([facility]) [address] [place] [address] 67065Cmsbsqw (BldV) [Moles/Vol]3.0 mmol/LHigh0.4-2.0UnTuscarawas HospitalComment on above:Performed By: #### 88782-6 #### HEAVEN Goyal (30093) [facility] ([facility]) [address] [place] [address] 07552Rfucrb (BldV) [Partial pressure]58 mm IwZrap35-47LivwslxlktTuscarawas HospitalComment on above:Performed By: #### 74264-6 #### HEAVEN Goyal (97977) [facility] ([facility]) [address] [place] [address] 65936Sqplvp saturation in Venous blood88 %Gbpl26-74JzedaihclkTuscarawas HospitalComment on above:Performed By: #### 58546-2 #### HEAVEN Goyal (54953) [facility] ([facility]) [address] [place] [address] 70873Gaclmpvpekdhe (BldV) [Mass fraction]85.5 %High45.0-75.0 [facility] HospitalComment on above:Performed By: #### 44402-2 #### HEAVEN Goyal (51413) [facility] ([facility]) [address] [place] [address] 17566kD (BldV)7.33 [pH]Normal7.33-7.43UnTuscarawas HospitalComment on above:Performed By: #### 61430-2 #### HEAVEN Goyal (00706) [facility] ([facility]) [address] [place] [address] 44532Nycsslxnf (BldV) [Moles/Vol]5.7 mmol/LHigh3.5-5.3UnTuscarawas HospitalComment on above:Performed By: #### 64218-0 #### HEAVEN Goyal (75708) [facility] ([facility]) [address] [place] [address] 03099Vqfess (BldV) [Moles/Vol]131 mmol/HMvy531-192JyylrwexaxPremier Health [facility] HospitalComment on above:Performed By: #### 26419-9 #### HEAVEN Goyal (67977) [facility] ([facility]) [address] [place] [address] 65042Cncyz gap 4 (BldV) [Moles/Vol]15.0 mmol/FThzsfl86.0-25.0 [facility] HospitalComment on above:Performed By: #### 2341-6 #### HEAVEN Goyal (38728) [facility] ([facility]) [address] [place] [address] 29325Chxy excess Calc (BldV) [Moles/Vol]-4.4000 mmol/LLow-2.0-3.0 [facility] HospitalComment on above:Performed By: #### 2341-6 #### HEAVEN Goyal (66163) [facility] ([facility]) [address] [place] [address] 27100Ilonjtm.ionized (BldV) [Moles/Vol]1.22 mmol/LNormal1.10-1.33 [facility] HospitalComment on above:Performed By: #### 2341-6 #### HEAVEN Goyal (50357) [facility] ([facility]) [address] [place] [address] 64401Xsfxrkxl (BldV) [Moles/Vol]103 mmol/OUvvagp47-096TuaunhnlowTuscarawas HospitalComment on above:Performed By: #### 2341-6 #### HEAVEN Goyal (62602) [facility] ([facility]) [address] [place] [address] 26354XX7 (BldV) [Partial pressure]39 mm DaXsu76-00VjgtxmgdsgTuscarawas HospitalComment on above:Performed By: #### 2341-6 #### HEAVEN Goyal (97403) [facility] ([facility]) [address] [place] [address] 28011Ypapbji [Mass/Vol]261 mg/lWGnrh92-34VqcmablrndPremier Health [facility] HospitalComment on above:Performed By: #### 2341-6 #### HEAVEN Goyal (67193) [facility] ([facility]) [address] [place] [address] 98519AMC2 (Bld) [Moles/Vol]21.0 mmol/LLow22.0-26.0[facility] HospitalComment on above:Performed By: #### 2341-6 #### HEAVEN Goyal (23465) [facility] ([facility]) [address] [place] [address] 26919Jdstjbhbfj Est (Bld) [Volume fraction]32.0 %Low36.0-46.0 [facility] HospitalComment on above:Performed By: #### 2341-6 #### HEAVEN Goyal (12893) [facility] ([facility]) [address] [place] [address] 91404Tkbsouowyh (Bld) [Mass/Vol]10.8 g/dLLow12.0-16.0[facility] HospitalComment on above:Performed By: #### 2341-6 #### HEAVEN Goyal (24932) [facility] ([facility]) [address] [place] [address] 30140Tpjjwvy oxygen wbjzysooodzuh77 %NormalUnTuscarawas HospitalComment on above:Performed By: #### 2341-6 #### HEAVEN Goyal (10168) [facility] ([facility]) [address] [place] [address] 22052Rfskwww (BldV) [Moles/Vol]2.8 mmol/LHigh0.4-2.0[facility] HospitalComment on above:Performed By: #### 2341-6 #### HEAVEN Goyal (08293) [facility] ([facility]) [address] [place] [address] 69196Lafqoh (BldV) [Partial pressure]53 mm OoJitx67-95VmndypmqukTuscarawas HospitalComment on above:Performed By: #### 2341-6 #### HEAVEN Goyal (29774) [facility] ([facility]) [id number] [place] [address] 08480Zavqse saturation in Venous blood79 %Vwrp67-32KiqvhcrnirTuscarawas HospitalComment on above:Performed By: #### 2341-6 #### HEAVEN Goyal (65624) [facility] ([facility]) [address] [place] [address] 78177Jqcipwbkhjxqj (BldV) [Mass fraction]77.5 %High45.0-75.0 [facility] HospitalComment on above:Performed By: #### 2341-6 #### HEAVEN Goyal (26352) [facility] ([facility]) [address] [place] [address] 69895dE (BldV)7.34 [pH]Normal7.33-7.43UnTuscarawas HospitalComment on above:Performed By: #### 2341-6 #### HEAVEN Goyal (11596) [facility] ([facility]) [address] [place] [address] 53997Xdycwlujs (BldV) [Moles/Vol]4.9 mmol/LNormal3.5-5.3UnTuscarawas HospitalComment on above:Performed By: #### 2341-6 #### HEAVEN Goyal (00067) [facility] ([facility]) [address] [place] [address] 78973Rhtgtz (BldV) [Moles/Vol]134 mmol/QJbh589-055AirzesfckxTuscarawas HospitalComment on above:Performed By: #### 2341-6 #### HEAVEN Goyal (31714) [facility] ([facility]) [address] [place] [address] 01341Ysdfc gap 4 (BldV) [Moles/Vol]14.0 mmol/FEavyfd35.0-25.0 [facility] HospitalComment on above:Performed By: #### 2341-6 #### HEAVEN Goyal (30737) [facility] ([facility]) [address] [place] [address] 54457Ngdq excess Calc (BldV) [Moles/Vol]-4.5000 mmol/LLow-2.0-3.0 [facility] HospitalComment on above:Performed By: #### 2341-6 #### HEAVEN Goyal (68325) [facility] ([facility]) [address] [place] [address] 36098Ocgrumf.ionized (BldV) [Moles/Vol]1.16 mmol/LNormal1.10-1.33 [facility] HospitalComment on above:Performed By: #### 2341-6 #### HEAVEN Goyal (90213) [facility] ([facility]) [address] [place] [address] 46690Qxnbqxlc (BldV) [Moles/Vol]103 mmol/CJlamzu80-233ClzgpheaziTuscarawas HospitalComment on above:Performed By: #### 2341-6 #### HEAVEN Goyal (61229) [facility] ([facility]) [address] [place] [address] 16222QA0 (BldV) [Partial pressure]40 mm PwAei38-98UgrhflaomnPremier Health [facility] HospitalComment on above:Performed By: #### 2341-6 #### HEAVEN Goyal ([id number]) [facility] ([facility]) [address] [place] [address] 35784Psusglu [Mass/Vol]293 mg/lVXzah32-59OjhoggfaewTuscarawas HospitalComment on above:Performed By: #### 2341-6 #### HEAVEN Goyal (97071) [facility] ([facility]) [address] [place] [address] 53398JEO0 (Bld) [Moles/Vol]21.1 mmol/LLow22.0-26.0UnTuscarawas HospitalComment on above:Performed By: #### 2341-6 #### HEAVEN Goyal (24799) [facility] ([facility]) [address] [place] [address] 96042Mwiihpfizt Est (Bld) [Volume fraction]34.0 %Low36.0-46.0 [facility] HospitalComment on above:Performed By: #### 2341-6 #### HEAVEN Goyal (94770) [facility] ([facility]) [address] [place] [address] 96521Hzyfvfanfl (Bld) [Mass/Vol]11.3 g/dLLow12.0-16.0[facility] HospitalComment on above:Performed By: #### 2341-6 #### HEAVEN Goyal (58888) [facility] ([facility]) [address] [place] [address] 03076Shupgxj oxygen cafiltybndutq79 %NormalUnTuscarawas HospitalComment on above:Performed By: #### 2341-6 #### HEAVEN Goyal (53131) [facility] ([facility]) [address] [place] [address] 77442Jlhkjtq (BldV) [Moles/Vol]3.0 mmol/LHigh0.4-2.0UnTuscarawas HospitalComment on above:Performed By: #### 2341-6 #### HEAVEN Goyal (43027) [facility] ([facility]) [address] [place] [address] 79936Vkwhog (BldV) [Partial pressure]56 mm CvIvsp77-70DeppevfohiTuscarawas HospitalComment on above:Performed By: #### 2341-6 #### HEAVEN Goyal (83415) [facility] ([facility]) [address] [place] [address] 93899Kajbuv saturation in Venous blood87 %Bica44-66BtmsncexhyPremier Health [facility] HospitalComment on above:Performed By: #### 2341-6 #### HEAVEN Goyal (10472) [facility] ([facility]) [address] [place] [address] 44004Cvnrlguwdpgco (BldV) [Mass fraction]84.6 %High45.0-75.0 [facility] HospitalComment on above:Performed By: #### 2341-6 #### HEAVEN Goyal (06878) [facility] ([facility]) [address] [place] [address] 48141pP (BldV)7.33 [pH]Normal7.33-7.43[facility] HospitalComment on above:Performed By: #### 2341-6 #### HEAVEN Goyal (28228) [facility] ([facility]) [address] [place] [address] 46771Frkgkarqo (BldV) [Moles/Vol]5.8 mmol/LHigh3.5-5.3UnTuscarawas HospitalComment on above:Performed By: #### 2341-6 #### HEAVEN Goyal (26876) [facility] ([facility]) [address] [place] [address] 70847Ckxwid (BldV) [Moles/Vol]132 mmol/CAnv701-692PfltjcwmspTuscarawas HospitalComment on above:Performed By: #### 2341-6 #### HEAVEN Goyal (91690) [facility] ([facility]) [address] [place] [address] 44684Bugypor Test strip manual (Bld) [Mass/Vol]on 08-27-2025 Glucose [Mass/Vol]198 mg/gGOham01 - 99 mg/dLUnAshtabula County Medical Center Interpretation and review of laboratory resultsAbnoalUMercy Health Willard HospitalGlucose [Mass/Vol]198 mg/nYBabz04-04 [facility] HospitalComment on above:Performed By: #### 80101-4 #### HEAVEN Goyal (45371) [facility] ([facility]) [address] [place] [address] 08730Gskrnkc [Mass/Vol]198 mg/qMCrez28 - 99 mg/dLGreen Cross HospitalInterpretation and review of laboratory resultsAbWood County HospitalGlucose [Mass/Vol]198 mg/mEAusw32-36PvtphmfmgoTuscarawas HospitalComment on above:Performed By: #### 13725-1 #### HEAVEN Goyal (19024) [facility] ([facility]) [address] [place] [address] 88431Uysmtwo [Mass/Vol]254 mg/oNElsz34 - 99 mg/dLGreen Cross HospitalInterpretation and review of laboratory resultsAbWayne HealthCare Main CampusUnAshtabula County Medical CenterGlucose [Mass/Vol]254 mg/sMTtna53-79EmlyeezjglPremier Health [facility] HospitalComment on above:Performed By: #### 30162-2 #### HEAVEN Goyal (20369) [facility] ([facility]) [address] [place] [address] 40445Xmtbhtz [Mass/Vol]363 mg/bEHafe79-02MrsneuuyccPremier Health [facility] HospitalComment on above:Performed By: #### 3274-8 #### HEAVEN Goyal (45602) [facility] ([facility]) [address] [place] [address] 48651Rmvyjij [Mass/Vol]243 mg/yJHhfg35-76GcgzqfpmhoTuscarawas HospitalComment on above:Performed By: #### 3274-8 #### HEAVEN Goyal (33289) [facility] ([facility]) [address] [place] [address] 26440Wiwwukq.unfractionatedon 76-62-3490Gqmgyan unfractionated Chromogenic method Qn (PPP)0.5 IU/mLNormalSee Comment Below for Therapeutic RangesPremier Health Miami Valley HospitalComment on above:Order Comment: The APTT is no longer used for monitoring Unfractionated Heparin Therapy. For monitoring Heparin Therapy, use the Heparin Assay.Performed By: #### 12095-7 #### HEAVEN Goyal (79145) [facility] ([facility]) [address] [place] [address] 56930Wmoemts unfractionated Chromogenic method Qn (PPP)0.5 IU/mL NormalSee Comment Below for Therapeutic RangesPremier Health Miami Valley HospitalComment on above:Order Comment: The therapeutic reference range for UFH may be either 0.3-0.6 IU/mL or 0.3-0.7 IU/mLbased on the clinical setting for anticoagulant therapy and the associated nomogram used. For Heparin dosing guidelines based on clinical scenario and Heparin Assay results, please refer to local Pharmacy and the [facility] Guidelines for Anticoagulation Therapy available on the [facility] intranet at: [email or web address] By: #### 2341-6 #### HEAVEN Goyal (54411) [facility] ([facility]) [address] [place] [address] 39254Mjaiicg function 2000 panelon 56-49-8358Ooagyhv BCP dye [Mass/Vol]3.5 g/dLNormal3.4-5.0[facility] Comment on above:Performed By: #### 3274-8 #### HEAVEN Goyal (82836) [facility] ([facility]) [id number] [place] [address] 02079CJD [Catalytic activity/Vol]93 U/KRdkkut24-445HdnwfhjfgwTuscarawas HospitalComment on above:Performed By: #### 3274-8 #### HEAVEN Goyal ([id number]) [facility] ([facility]) [id number] [place] [address] 35184VOI With P-5'-P [Catalytic activity/Vol]25 U/LNormal7-45 [facility] HospitalComment on above:Result Comment: Patients treated with Sulfasalazine may generate falsely decreased results for ALT.Performed By: #### 3274-8 #### HEAVEN Goyal ([id number]) [facility] ([facility]) [id number] [place] [address] 63351QBD With P-5'-P [Catalytic activity/Vol]102 U/LHigh9-39 [facility] HospitalComment on above:Performed By: #### 3274-8 #### HEAVEN Goyal ([id number]) [facility] ([facility]) [id number] [place] [address] 13008Geaktjwfz [Mass/Vol]0.4 mg/dLNormal0.0-1.2UnTuscarawas HospitalComment on above:Performed By: #### 3274-8 #### HEAVEN Goyal ([id number]) [facility] ([facility]) [id number] [place] [address] 42472Tljjjvnpd.direct [Mass/Vol]0.1 mg/dLNormal0.0-0.3[facility] HospitalComment on above:Performed By: #### 3274-8 #### HEAVEN Goyal ([id number]) [facility] ([facility]) [id number] [place] [address] 87409Tzhsqju [Mass/Vol]5.8 g/dLLow6.4-8.2[facility] HospitalComment on above:Performed By: #### 3274-8 #### HEAVEN Goyal ([id number]) [facility] ([facility]) [address] [place] [address] 01061Pypm and Iron binding capacity panelon [id number] [Mass/Vol]113 ug/oUVxngjd36-124BzsjyeicdgTuscarawas Hospital Comment on above:Performed By: #### 3274-8 #### HEAVEN Goyal ([id number]) [facility] ([facility]) [id number] [place] [address] 38188Dvyh binding capacity [Mass/Vol]352 ug/oWAjhofe686-506 [facility] HospitalComment on above:Performed By: #### 3274-8 #### HEAVEN Goyal ([id number]) [facility] ([facility]) [id number] [place] [address] 48362Qzjm binding capacity.unsaturated [Mass/Vol]239 ug/dLNormal 110-370UnTuscarawas HospitalComment on above:Performed By: #### 3274-8 #### HEAVEN Goyal ([id number]) [facility] ([facility]) [id number] [place] [address] 14249Irlf saturation [Mass fraction]32 %Sxlgnp65-75RwoenatqhnPremier Health [facility] HospitalComment on above:Performed By: #### 3274-8 #### HEAVEN Goyal ([id number]) [facility] ([facility]) [id number] [place] [address] 62515Pqylanxumhn 38-02-2050Tcybafhta [Mass/Vol]2.15 mg/dLNormal 1.60-2.40[facility] HospitalComment on above:Performed By: #### 3274-8 #### HEAVEN Goyal ([id number]) [facility] ([facility]) [id number] [place] [address] 48588Lklblcefuqy 02-13-9157Gcgryvtzb [Mass/Vol]5.1 mg/dLHigh 2.5-4.9Prem[facility] HospitalComment on above:Performed By: #### 3274-8 #### HEAVEN Goyal ([id number]) [facility] ([facility]) [address] [place] [address] 88511Tvkvqnsc I.cardiac panel High sensitivity methodon 08-27-2025 Interpretation and review of laboratory resultsAbTr[facility] Interpretation and review of laboratory resultsAbTr[facility] Interpretation and review of laboratory resultsAbTr[facility] Interpretation and review of laboratory resultsAbTr[facility] Interpretation and review of laboratory resultsAbTr[facility] Interpretation and review of laboratory resultsAbTr[facility] Troponin I, High Sensitivityon 05-92-9082Idhjobbf I.cardiac panel High sensitivity blyafa25275 ng/LCritically high0 - 34 ng/[facility] HospitalTropinin I.cardiac panel High sensitivity epwmmj07752 ng/LCritically high0 - 34 ng/[facility] HospitalTropinin I.cardiac panel High sensitivity ndjwtj36020 ng/LCritically high0 - 34 ng/[facility] HospitalTropinin I.cardiac panel High sensitivity wnozbr01103 ng/LCritically high0 - 34 ng/[facility] HospitalTrinin I.cardiac panel High sensitivity ukgnap07817 ng/LCritically high0 - 34 ng/[facility] HospitalTropinin I.cardiac panel High sensitivity sokivq28462 ng/LCritically high0 - 34 ng/[facility] HospitalTroponin I.cardiac panelon 21-65-4872Npmxtnep I.cardiac panel High sensitivity exrwoh26767 ng/LCritically high0-34Prem[facility] Miami [facility] HospitalComment on above:Order Comment: Less than 99th percentile of normal range cutoff-Female and children under 18 years old <35 ng/L; Male <54 ng/L: NegativeRepeat testing should be performed if clinically indicated.Female and children under 18 years old 35-120 ng/L; Male 54-120 ng/L:Consistent with possible cardiac damage and possible increased clinicalrisk. Serial measurements may help to assess extent of myoc ardial damage.>120 ng/L: Consistent with cardiac damage, increased clinical risk andmyocardial infarction. Serial measurements may help assess extent ofmyocardial damage.NOTE: Children less than 1year old may have higher baseline troponinlevels and results should be interpreted in conjunction with the overallclinical context.NOTE: Troponin I testing is performed using a differenttesting methodology at [facility] than at [facility]. Direct result comparisons should onlybe made within the same method. Performed By: #### 20911-7 #### HEAVEN Goyal ([id number]) [facility] ([facility]) [address] [place] [address] 29777Sykuhjil I.cardiac panel High sensitivity lgmcpi83298 ng/L Critically high0-34Prem[facility] HospitalComment on above:Order Comment: Less than 99th percentile of normal range cutoff-Female and children under 18 years old <35 ng/L; Male <54 ng/L: NegativeRepeat testing should be performed if clinically indicated.Female and children under 18 years old 35-120 ng/L; Male 54-120 ng/L:Consistent with possible cardiac damage and possible increased clinicalrisk. Serial measurements may help to assess extent of myocardial damage.>120 ng/L: Consistent with cardiac damage, increased clinical risk andmyocardial infarction. Serial measurements may help assess extent ofmyocardial damage.NOTE: Children less than 1year old may have higher baseline troponinlevels and results should be interpreted in conjunction with the overallclinical context.NOTE: Troponin I testing is performed using a differenttesting methodology at [facility] than at [facility]. Direct result comparisons should onlybe made within the same method. Result Comment: Previous result verified on 08/26/20252316 on specimen/case [id number] calledwith component [facility] for procedure Troponin I, High Sensitivity with value 9,126 ng/L.Performed By: #### 52598-0 #### HEAVEN Goyal ([id number]) [facility] ([facility]) [address] [place] [address] 83012Vrdelrwa I.cardiac panel High sensitivity hryqpu99797 ng/L [address]Comment on above:Order Comment: Less than 99th percentile of normal range cutoff-Female and children under 18 years old <35 ng/L; Male <54 ng/L: NegativeRepeat testing should be performed if clinically indicated.Female and children under 18 years old 35-120 ng/L; Male 54-120 ng/L:Consistent with possible cardiac damage and possible increased clinicalrisk. Serial measurements may help to assess extent of myocardial damage.>120 ng/L: Consistent with cardiac damage, increased clinical risk andmyocardial infarction. Serial measurements may help assess extent ofmyocardial damage.NOTE: Children less than 1year old may have higher baseline troponinlevels and results should be interpreted in conjunction with the overallclinical context.NOTE: Troponin I testing is performed using a differenttesting methodology at [facility] than at [facility]. Direct result comparisons should onlybe made within the same method. Result Comment: Previous result verified on 08/26/20252316 on specimen/case [id number] calledwith [facility] for procedure Troponin I, High Sensitivity with value 9,126 ng/L.Performed By: #### 68658-2 #### HEAVEN Goyal (28031) [facility] ([facility]) [address] [place] [address] 77122Jqqkntsl I.cardiac panel High sensitivity glhcub79277 ng/L [address]Comment on above:Order Comment: Less than 99th percentile of normal range cutoff-Female and children under 18 years old <35 ng/L; Male <54 ng/L: NegativeRepeat testing should be performed if clinically indicated.Female and children under 18 years old 35-120 ng/L; Male 54-120 ng/L:Consistent with possible cardiac damage and possible increased clinicalrisk. Serial measurements may help to assess extent of myocardial damage.>120 ng/L: Consistent with cardiac damage, increased clinical risk andmyocardial infarction. Serial measurements may help assess extent ofmyocardial damage.NOTE: Children less than 1year old may have higher baseline troponinlevels and results should be interpreted in conjunction with the overallclinical context.NOTE: Troponin I testing is performed using a differenttesting methodology at [facility] than at [facility]. Direct result comparisons should onlybe made within the same method. Result Comment: Previous result verified on 08/26/20252316 on specimen/case [id number] calledwith component [facility] for procedure Troponin I, High Sensitivity with value 9,126 ng/L.Performed By: #### 26749-5 #### HEAVEN Goyal ([id number]) [facility] ([facility]) [address] [place] [address] 87358Uwbimnwi I.cardiac panel High sensitivity uldklt16647 ng/L [address] StreetComment on above:Order Comment: The APTT is no longer used for monitoring Unfractionated Heparin Therapy. For monitoring Heparin Therapy, use the Heparin Assay.Result Comment: Previous result verified on 08/26/20252316 on specimen/case 25UL- [id number] calledwith component [facility] for procedure Troponin I, High Sensitivity with value 9,126 ng/L.Performed By: #### 07272-5 #### HEAVEN Goyal (82598) [facility] ([facility]) [address] [place] [address] 92605Giglmdgh I.cardiac panel High sensitivity xxpnno77173 ng/L Critically [address]Comment on above:Order Comment: The APTT is no longer used for monitoring Unfractionated Heparin Therapy. For monitoring Heparin Therapy, use the Heparin Assay.Result Comment: Previous result verified on 08/26/20252316 on specimen/case [id number]- [id number] calledwith component [facility] for procedure Troponin I, High Sensitivity with value 9,126 ng/L.Performed By: #### 45684-1 #### HEAVEN Goyal (83556) [facility] ([facility]) [address] [place] [address] 31010Nssochch I.cardiac panel High sensitivity sjzake86511 ng/L [address]Comment on above:Order Comment: The APTT is no longer used for monitoring Unfractionated Heparin Therapy. For monitoring Heparin Therapy, use the Heparin Assay.Result Comment: Previous result verified on 08/26/20252316 on specimen/case [id number] calledwith component [facility] for procedure Troponin I, High Sensitivity with value 9,126 ng/L.Performed By: #### 42627-6 #### HEAVEN Goyal ([id number]) [facility] ([facility]) [address] [place] [address] 32415Lmfqttrd I.cardiac panel High sensitivity aroklq65354 ng/L [address]Comment on above:Order Comment: The therapeutic reference range for UFH may be either 0.3- 0.6 IU/mL or 0.3-0.7 IU/mLbased on the clinical setting for anticoagulant therapy and the associated nomogram used. For Heparin dosing guidelines based on clinical scenario and Heparin Assay results, please refer to local Pharmacy and the [facility] Guidelines for Anticoagulation Therapy available on the [facility] intranet at: [email or web address] Comment: Previous result verified on 08/26/20252316 on specimen/case [id number] calledwith component [facility] for procedure Troponin I, High Sensitivity with value 9,126 ng/L.Performed By: #### 3274-8 #### HEAVEN Goyal ([id number]) [facility] ([facility]) [address] [place], [place] [address]Zduzwaae I.cardiac panel High sensitivity zuqnfu69924 ng/L Critically high0-34[facility] HospitalComment on above:Order Comment: Less than 99th percentile of normal range cutoff-Female and children under 18 years old <35 ng/L; Male <54 ng/L: NegativeRepeat testing should be performed if clinically indicated.Female and children under 18 years old 35-120 ng/L; Male 54-120 ng/L:Consistent with possible cardiac damage and possible increased clinicalrisk. Serial measurements may help to assess extent of myocardial damage.>120 ng/L: Consistent with cardiac damage, increased clinical risk andmyocardial infarction. Serial measurements may help assess extent ofmyocardial damage.NOTE: Children less than 1year old may have higher baseline troponinlevels and results should be interpreted in conjunction with the overallclinical context.NOTE: Troponin I testing is performed using a differenttesting methodology at [facility] than at [facility]. Direct result comparisons should onlybe made within the same method. Result Comment: Previous result verified on 08/26/2025 2317 on specimen/case [id number] calledwith [facility] for procedure Troponin I, High Sensitivity with value 9,126 ng/L.Performed By: #### 2341-6 #### HEAVEN Goyal ([id number]) [facility] ([facility]) [address] [place], [place] [address]WP Heart Transthoracicon 81-46-1160LYUEAHNMOCNbpjclromsAshtabula County Medical Center Work Phone: us Heart TransthoracicOrdered By: Gilmar Branham on 28-95-8285UwzibbnoxsGreen Cross Hospital Work Phone: US COMANCHE RENAL WITH DOPPLERon 52-25-2338JR COMANCHE RENAL WITH DOPPLERInterpreted By: Goran Bowie, and Rigoberto Young STUDY: US COMANCHE RENAL WITH DOPPLER; 08/27/2025 3:56 pm INDICATION: Signs/Symptoms:OMAR. ,N17.9 Acute kidney failure, unspecified Per EMR: Extensive cardiac history found to have NSTEMI now status post JOSELITO to RCA on 08/2021 complicated by distal RCA lesion dissection, stent embolization, and spiral dissection. Status post IABP. Being evaluated for CABG evaluation. COMPARISON: None. ACCESSION NUMBER(S): [id number] ORDERING CLINICIAN: SPENCER KONG TECHNIQUE: Multiple images of the kidneys were [...] DO, PGY-4. This study was interpreted at [place], [place]. MACRO: None Signed by: Goran Bowie 08/28/2025 6:16 AM Dictation workstation: [id number] Hospital DaytonUS platinum renal with doppleron 64-07-1171Aeouzmzdp Study observation (narrative)[facility] Work Phone: XR Chest Single viewon 27-37-4779XJ MMODALUH MMODAL [facility] Work Phone: XR Chest Single viewOrdered By: Colin Rm on 13-48-9720ScxupicnzeAshtabula County Medical Center Work Phone: A1C with Estimated Average Gluon 84-98-3062Scthuxa [Mass/Vol]263 mg/dLNormalThSteele Memorial Medical Center Physician GroupComment on above:Result Comment: PERFORMED BY: [place] [id number] PATHOLOGIST IN SCHOOL SUSPENSION COORDINATOR YURI BROWN M.D.Performed By: #### MG, LDLD, PHOS, A1C WTH eA, LIPID, HS TROP, CBC, CMP ####[place] [address] [place] [address] ALUBbK4w (Bld) [Mass fraction]10.8 %High4.3-5.6The [facility]arrus Physician GroupComment on above:Result Comment: Increased risk for diabetes: 5.7 - 6.4 diabetes: >6.4 glycemic control for adults with diabetes: <7.0Performed By: #### MG, LDLD, PHOS, A1C WTH eA, LIPID, HS TROP, CBC, CMP ####[place] [address] [place] [address] USAAnti-Xa UF Heparinon 21-83-0481Wbqg-Xa UF Heparin1.08Off scale high0.30-0.70[facility]arrus Physician GroupComment on above:Result Comment: Critical value result called at 1546 on 08/26/25 Use the aPTT protocol when triglycerides are > 800 mg/dL, total bilirubin is > 20 mg/dL and/or patient has received a DOAC, Fondaparinux or LMWH within 72 hours AND baseline anti-Xa level is > 0.7 units/mL PERFORMED BY: [address] [address] PATHOLOGIST IN SCHOOL SUSPENSION COORDINATOR YURI BROWN M.D.Performed By: #### UFHEP #### [facility] [address] [place] [address] USAAnti-Xa UF Heparin0.20Low0.30-0.70The [facility] Physician GroupComment on above:Result Comment: Use the aPTT protocol when triglycerides are > 800 mg/dL, total bilirubin is > 20 mg/dL and/or patient has received a DOAC, Fondaparinux or LMWH within 72 hours AND baseline anti-Xa level is > 0.7 units/mL PERFORMED BY: [facility] [address] [place] [address] PATHOLOGIST IN SCHOOL SUSPENSION COORDINATOR YURI BROWN M.D.Performed By: #### UFHEP #### [facility] [address] [place] [address] USABasic metabolic 2000 panelon 74-88-9374Opztx gap [Moles/Vol]19 mmol/WAspgiz95-44JarjmixjhjTuscarawas Hospital Comment on above:Performed By: #### 72829-4 #### HEAVEN Goyal ([id number]) [facility] ([facility]) [address] [place] [address] 22919Pxfveqh [Mass/Vol]9.2 mg/dLNormal8.6-10.6Prem[facility] HospitalComment on above:Performed By: #### 85212-9 #### HEAVEN PHILIP L ([id number]) [facility] ([facility]) [address] [place] [address] 21374Eejjbiwq [Moles/Vol]100 mmol/JUlorcu45-982PwuvtajoaxTuscarawas HospitalComment on above:Performed By: #### 67266-7 #### HEAVEN PANDAMOTZRYANN L (30188) [facility] ([facility]) [address] [place] [address] 63345LT8 [Moles/Vol]17 mmol/XAnb13-52AwffpmnizmPremier Health Miami Valley HospitalComment on above:Performed By: #### 18094-5 #### HEAVEN PANDAMODAMIÁN L (54298) [facility] ([facility]) [address] [place] [address] 80717Gucomagnpi [Mass/Vol]2.06 mg/dLHigh0.50-1.05[facility] HospitalComment on above:Performed By: #### 36235-9 #### HEAVEN PANDAMOTZRYANN L ([id number]) [facility] ([facility]) [address] [place] [address] 05500Mpnojgsmcc filtration rate28 mL/min/1.73m*2Low>60Prem[facility] HospitalComment on above:Result Comment: Calculations of estimated GFR are performed using the 2020 CKD-EPI Study Refit equation without the race variable for the IDMS-Traceable creatinine methods. https://jasn.asnjournals.org/content/early/ASN.9329458491Xhsqndbwh By: #### 21639-9 #### HEAVEN Goyal (58053) [facility] ([facility]) [address] [place] [address] 82873Pyhauar [Mass/Vol]284 mg/ePUkka97-32MudyukmittPremier Health Miami Valley HospitalComment on above:Performed By: #### 89278-9 #### HEAVNE Goyal (19285) [facility] ([facility]) [address] [place] [address] 74294Fjorigwni [Moles/Vol]5.4 mmol/LHigh3.5-5.3[facility] HospitalComment on above:Performed By: #### 94456-2 #### HEAVEN Goyal (78331) [facility] ([facility]) [address] [place] [address] 47836Noklxz [Moles/Vol]131 mmol/FZvr533-510ZpvzgxvxpiPremier Health Miami Valley HospitalComment on above:Performed By: #### 13634-0 #### HEAVEN Goyal (16724) [facility] ([facility]) [address] [place] [address] 04981Rpix nitrogen [Mass/Vol]28 mg/dLHigh6-23Prem[facility] HospitalComment on above:Performed By: #### 96921-1 #### HEAVEN Goyal (27417) [facility] ([facility]) [address] [place] [address] 59131Iaawl type and Indirect antibody screen panel (Bld)on 45-35-0386EZS group Nom (Bld)ANoalUniKindred Hospital DaytonComment on above:Performed By: #### 2341-6 #### HEAVEN Goyal (48708) [facility] ([facility]) [address] [place], [place] [address]Xneuo group antibody screen QlNegativeProMedica Fostoria Community HospitalComment on above:Performed By: #### 2341-6 #### HEAVEN Goyal (20928) [facility] ([facility]) [address] [place], [place] [address]C Ag Ql (Bld)PositiveProMedica Fostoria Community HospitalComment on above:Performed By: #### 2341-6 #### HEAVEN Goyal (46316) [facility] ([facility]) [address] [place] [address] 60363RFB W Auto Differential panel (Bld)on 94-30-5218Ukeuuziii (Bld) [#/Vol]0.02 x10*3/uLNormal0.00-0.10Prem[facility] HospitalComment on above:Performed By: #### 72715-7 #### HEAVEN Goyal (25438) [facility] ([facility]) [address] [place] [address] 90849Mosgjwmjr/100 WBC (Bld)0.2 %Normal0.0-2.0Prem[facility] HospitalComment on above:Performed By: #### 61523-6 #### HEAVEN Goyal (08004) [facility] ([facility]) [address] [place] [address] 55290Itsnyljvcfk (Bld) [#/Vol]0.00 x10*3/uLNormal0.00-0.70 [facility] HospitalComment on above:Performed By: #### 72660-1 #### HEAVEN Goyal (26925) [facility] ([facility]) [address] [place] [address] 04635Rkbgtmxztao/100 WBC (Bld)0.0 %Normal0.0-6.0Prem[facility] HospitalComment on above:Performed By: #### 44219-6 #### HEAVEN Goyal (50485) [facility] ([facility]) [address] [place], [place] [address]Dzymlftpcms distribution width (RBC) [Ratio]13.2 %Normal 11.5-14.5UnTuscarawas HospitalComment on above:Performed By: #### 43913-1 #### HEAVEN Goyal (61314) [facility] ([facility]) [address] [place] [address] 51421Ixfijcgqvv (Bld) [Volume fraction]33.3 %Low36.0-46.0 [facility] HospitalComment on above:Performed By: #### 29066-1 #### HEAVEN Goyal (85520) [facility] ([facility]) [address] [place] [address] 61788Bcdzjjfvrh (Bld) [Mass/Vol]11.1 g/dLLow12.0-16.0UnTuscarawas HospitalComment on above:Performed By: #### 78102-0 #### HEAVEN Goyal (93670) [facility] ([facility]) [address] [place] [address] 41937Joasblya granulocytes (Bld) [#/Vol]0.08 x10*3/uLNormal 0.00-0.70UnTuscarawas HospitalComment on above:Performed By: #### 60848-5 #### HEAVEN Goyal (94632) [facility] ([facility]) [address] [place] [address] 17251Ywbdlsrw granulocytes/100 WBC (Bld)0.7 %Normal0.0-0.9 [facility] HospitalComment on above:Result Comment: Immature Granulocyte Count (IG) includes promyelocytes, myelocytes and metamyelocytes but does not include bands. Percent differential counts (%) should be interpreted in the context of the absolute cell counts (cells/UL). Performed By: #### 51151-9 #### HEAVEN Goyal (81435) [facility] ([facility]) [address] [place], [place] [address]Lsrlolivnbz (Bld) [#/Vol]1.09 x10*3/uLLow1.20-4.80UnTuscarawas HospitalComment on above:Performed By: #### 10902-8 #### HEAVEN Goyal (29662) [facility] ([facility]) [address] [place] [address] 57284Thivlkskbci/100 WBC (Bld)9.6 %Vrhqvp34.0-44.0UnTuscarawas HospitalComment on above:Performed By: #### 10418-1 #### HEAVEN Goyal (26395) [facility] ([facility]) [address] [place] [address] 46676FUC (RBC) [Entitic mass]27.9 hqIqdkhg44.0-34.0UnTuscarawas HospitalComment on above:Performed By: #### 99496-9 #### HEAVEN Goyal (76839) [facility] ([facility]) [address] [place] [address] 90385EPZC (RBC) [Mass/Vol]33.3 g/nSSyhxql94.0-36.0UnTuscarawas HospitalComment on above:Performed By: #### 28703-8 #### HEAVEN Goyal (16502) [facility] ([facility]) [address] [place] [address] 26501YDU (RBC) [Entitic vol]84 eDNqcttq91-196MzsgpvfjzyPremier Health Miami Valley HospitalComment on above:Performed By: #### 93610-3 #### HEAVEN Goyal (25028) [facility] ([facility]) [address] [place] [address] 50348Ojpisvuke (Bld) [#/Vol]0.59 x10*3/uLNormal0.10-1.00UnTuscarawas HospitalComment on above:Performed By: #### 03441-4 #### HEAVEN Goyal (58507) [facility] ([facility]) [address] [place] [address] 01476Vuppkweqb/100 WBC (Bld)5.2 %Normal2.0-10.0UnTuscarawas HospitalComment on above:Performed By: #### 16682-1 #### HEAVEN Goyal (33122) [facility] ([facility]) [id number] [place] [address] 65402Ymzyxddheqi (Bld) [#/Vol]9.58 x10*3/uLHigh1.20-7.70UnTuscarawas HospitalComment on above:Result Comment: Percent differential counts (%) should be interpreted in the context of the absolute cell counts (cells/uL).Performed By: #### 21113-6 #### HEAVEN Goyal ([id number]) [facility] ([facility]) [id number] [place] [address] 09025Phulvhiwppg/100 WBC (Bld)84.3 %Zhirux53.0-80.0UnTuscarawas HospitalComment on above:Performed By: #### 10920-7 #### HEAVEN Goyal ([id number]) [facility] ([facility]) [id number] [place] [address]Ggwtrngjd RBC/100 WBC (Bld) [Ratio]0.0 /100 WBCsNormal0.0-0.0 [facility] HospitalComment on above:Performed By: #### 80181-4 #### HEAVEN Goyal ([id number]) [facility] ([facility]) [id number] [place] [address] 17196Zuyrofvdv (Bld) [#/Vol]353 x10*3/cZDtroio263-217FkeqdzbbwbTuscarawas HospitalComment on above:Performed By: #### 07946-7 #### HEAVEN Goyal ([id number]) [facility] ([facility]) [id number] [place] [address] 43455DLY (Bld) [#/Vol]3.98 x10*6/uLLow4.00-5.20UnTuscarawas HospitalComment on above:Performed By: #### 13027-8 #### HEAVEN Goyal ([id number]) [facility] ([facility]) [address] [place], [place] [address]GFM (Bld) [#/Vol]11.4 x10*3/uLHigh4.4-11.3[facility] HospitalComment on above:Performed By: #### 78888-2 #### HEAVEN Goyal ([id number]) [facility] ([facility]) [address] [place], [place] [address]Evnvdcgn Blood Count Auto Diffon 12-60-2198Mcssgjzrv (Bld) [#/Vol]0.1 10*3/uLNormal0.0-0.2The [facility]us Physician GroupComment on above: Result Comment: PERFORMED BY: [place] [id number] PATHOLOGIST IN SCHOOL SUSPENSION COORDINATOR YURI BROWN M.D.Performed By: #### MG, LDLD, PHOS, A1C WTH eA, LIPID, HS TROP, CBC, CMP ####[address] [address] USABasophils/100 WBC (Bld)0.8 %Normal.The [facility] Physician GroupComment on above:Performed By: #### MG, LDLD, PHOS, A1C WTH eA, LIPID, HS TROP, CBC, CMP ####[address] [address] [place] Eosinophils (Bld) [#/Vol]0.1 10*3/uLNormal0.0-0.45The [facility] Comment on above:Performed By: #### MG, LDLD, PHOS, A1C WTH eA, LIPID, HS TROP, CBC, CMP ####[address] [address] USAEosinophils/100 WBC (Bld)1.5 %Normal.The [facility] Physician GroupComment on above:Performed By: #### MG, LDLD, PHOS, A1C WTH eA, LIPID, HS TROP, CBC, CMP ####[place] [id number] [place] Erythrocyte distribution width (RBC) [Ratio]13.7 %Ntahyv33.9-15.3The [facility] Physician GroupComment on above:Performed By: #### MG, LDLD, PHOS, A1C WTH eA, LIPID, HS TROP, CBC, CMP ####[place] [address] USAHematocrit (Bld) [Volume fraction]35.3 %Normal 34.0-46.4The [facility] Physician GroupComment on above:Performed By: #### MG, LDLD, PHOS, A1C WTH eA, LIPID, HS TROP, CBC, CMP ####[place] [address] USAHemoglobin (Bld) [Mass/Vol]12.0 g/dL Ydqsls80.8-15.4The [facility] Physician GroupComment on above:Performed By: #### MG, LDLD, PHOS, A1C WTH eA, LIPID, HS TROP, CBC, CMP ####[place] [id number] USALymphocytes (Bld) [#/Vol]2.4 10*3/uLNormal1.00-4.8The [facility] Physician GroupComment on above:Performed By: #### MG, LDLD, PHOS, A1C WTH eA, LIPID, HS TROP, CBC, CMP ####[place] [phone] USALymphocytes/100 WBC (Bld)36.8 %Normal.The [facility] Physician GroupComment on above:Performed By: #### MG, LDLD, PHOS, A1C WTH eA, LIPID, HS TROP, CBC, CMP ####[address] [address] [facility] ([facility]BC) [Entitic mass]28.0 fwTolidk82.7-34.3The [facility] Physician GroupComment on above:Performed By: #### MG, LDLD, PHOS, A1C WTH eA, LIPID, HS TROP, CBC, CMP ####[place] [phone] USAV (RBC) [Entitic vol]82.6 fL Ajjbtl70-893Tps [facility] Physician GroupComment on above:Performed By: #### MG, LDLD, PHOS, A1C WTH eA, LIPID, HS TROP, CBC, CMP ####[place] [address] USAMean Corpuscular HGB Conc33.9 g/dL Oqohnx53.0-35.0The [facility] Physician GroupComment on above:Performed By: #### MG, LDLD, PHOS, A1C WTH eA, LIPID, HS TROP, CBC, CMP ####[place] [address] USAMonocytes (Bld) [#/Vol]0.5 10*3/uLNormal0.0-0.8The [facility] Physician GroupComment on above:Performed By: #### MG, LDLD, PHOS, A1C WTH eA, LIPID, HS TROP, CBC, CMP ####[place] [address] USAMonocytes/100 WBC (Bld)8.2 % Normal.The [facility] Physician GroupComment on above:Performed By: #### MG, LDLD, PHOS, A1C WTH eA, LIPID, HS TROP, CBC, CMP ####[place] [address] USANeutrophils (Bld) [#/Vol]3.5 10*3/uL Normal1.8-7.7The [facility] Physician GroupComment on above:Performed By: #### MG, LDLD, PHOS, A1C WTH eA, LIPID, HS TROP, CBC, CMP ####[place] [address] USANeutrophils/100 WBC (Bld)52.7 %Normal.The [facility] Physician GroupComment on above:Performed By: #### MG, LDLD, PHOS, A1C WTH eA, LIPID, HS TROP, CBC, CMP ####[place] [address] USANRBC%0.1 /100{WBC}Normal0-0.5The [facility] Physician GroupComment on above:Performed By: #### MG, LDLD, PHOS, A1C WTH eA, LIPID, HS TROP, CBC, CMP ####[place] [phone] USAPlatelet mean volume (Bld) [Entitic vol]8.3 fLNormal 6.3-10.7The [facility] Physician GroupComment on above:Performed By: #### MG, LDLD, PHOS, A1C WTH eA, LIPID, HS TROP, CBC, CMP ####[place] [phone] USAPlatelets (Bld) [#/Vol]322 10*3/uL Dvgacu565-453Wto [facility] Physician GroupComment on above:Performed By: #### MG, LDLD, PHOS, A1C WTH eA, LIPID, HS TROP, CBC, CMP ####[place] [address] USARBC (Bld) [#/Vol]4.27 10*6/uL Normal3.60-5.00The [facility] Physician GroupComment on above:Performed By: #### MG, LDLD, PHOS, A1C WTH eA, LIPID, HS TROP, CBC, CMP ####[place] [phone] USAWBC (Bld) [#/Vol]6.6 10*3/uL Normal3.8-11.6The [facility] Physician GroupComment on above:Performed By: #### MG, LDLD, PHOS, A1C WTH eA, LIPID, HS TROP, CBC, CMP ####[place] [phone] USAWhite Blood Count6.6 [CFU]/mL Normal3.8-11.6The [facility] Physician GroupComment on above:Performed By: #### MG, LDLD, PHOS, A1C WTH eA, LIPID, HS TROP, CBC, CMP ####[place] [phone] USAComprehensive Metabolic Panel on 73-76-1275Oxcwddn [Mass/Vol]3.7 g/dLNormal3.5-5.7The [facility] Physician GroupComment on above:Order Comment: FASTING YPerformed By: #### MG, LDLD, PHOS, A1C WTH eA, LIPID, HS TROP, CBC, CMP ####[place] [address] [place] [address] USAAlbumin/Globulin [Mass ratio]1.5 {ratio}Normal The [facility] Physician GroupComment on above:Order Comment: FASTING YPerformed By: #### MG, LDLD, PHOS, A1C WTH eA, LIPID, HS TROP, CBC, CMP ####[place] [address] [place] [address] USAALP [Catalytic activity/Vol]102 U/SSkjfvy99-535Dby [facility] Physician GroupComment on above: Order Comment: FASTING YPerformed By: #### MG, LDLD, PHOS, A1C WTH eA, LIPID, HS TROP, CBC, CMP ####[place] [address] [place] [id number] USAALT [Catalytic activity/Vol]14 U/LNormal7-52The [facility] Physician GroupComment on above:Order Comment: FASTING YPerformed By: #### MG, LDLD, PHOS, A1C WTH eA, LIPID, HS TROP, CBC, CMP ####[place] [address] [place] [id number] USAAnion gap [Moles/Vol]15.6 mmol/LHigh6.0-15.0 The [facility] Physician GroupComment on above:Order Comment: FASTING YPerformed By: #### MG, LDLD, PHOS, A1C WTH eA, LIPID, HS TROP, CBC, CMP ####[address] [address] USAAST [Catalytic activity/Vol]11 U/XJul23-06Koo [facility] Physician GroupComment on above:Order Comment: FASTING YPerformed By: #### MG, LDLD, PHOS, A1C WTH eA, LIPID, HS TROP, CBC, CMP ####[place] [phone] USABilirubin [Mass/Vol]0.4 mg/dLNormal0.3-1.0The [facility] Comment on above:Order Comment: FASTING YPerformed By: #### MG, LDLD, PHOS, A1C WTH eA, LIPID, HS TROP, CBC, CMP ####[place] [address] [place] [address] USACalcium [Mass/Vol]9.2 mg/dLNormal8.6-10.3The [facility] Physician GroupComment on above:Order Comment: FASTING YPerformed By: #### MG, LDLD, PHOS, A1C WTH eA, LIPID, HS TROP, CBC, CMP ####[place] [address] USAChloride [Moles/Vol]103 mmol/VQwgsat12-544Kew [facility] Physician GroupComment on above:Order Comment: FASTING YPerformed By: #### MG, LDLD, PHOS, A1C WTH eA, LIPID, HS TROP, CBC, CMP ####[place] [address] USACO2 [Moles/Vol]21.5 mmol/WSlgntk26.0-31.0The [facility] Physician GroupComment on above:Order Comment: FASTING YPerformed By: #### MG, LDLD, PHOS, A1C WTH eA, LIPID, HS TROP, CBC, CMP ####[place] [phone] USACreatinine [Mass/Vol]1.26 mg/dLHigh0.60-1.20The [facility] Physician GroupComment on above:Order Comment: FASTING YPerformed By: #### MG, LDLD, PHOS, A1C WTH eA, LIPID, HS TROP, CBC, CMP ####[place] [phone] USACreatinine Clr Calc Pharmacy 65.77NormalThe [facility] Physician GroupComment on above:Order Comment: FASTING YPerformed By: #### MG, LDLD, PHOS, A1C WTH eA, LIPID, HS TROP, CBC, CMP ####[place] [phone] [place] GFR/1.73 sq M.predicted MDRD (S/P/Bld) [Vol rate/Area]51.049 mL/min/{1.73_m2} NormalThe [facility] Physician GroupComment on above:Order Comment: FASTING Y Performed By: #### MG, LDLD, PHOS, A1C WTH eA, LIPID, HS TROP, CBC, CMP ####[place] [address] [place] [address] [place] Globulin (S) [Mass/Vol]2.5 g/dLNormalThe [facility] Physician GroupComment on above:Order Comment: FASTING YPerformed By: #### MG, LDLD, PHOS, A1C WTH eA, LIPID, HS TROP, CBC, CMP ####[place] [address] USAGlucose [Mass/Vol]251 mg/wWTztl37-748Sxz [facility] Physician GroupComment on above:Order Comment: FASTING YResult Comment: Random Glucose Reference Range is dependent on time and content of last meal. Glucose of more than 200 mg/dL in a nonstressed, ambulatory subject supports the diagnosis of Diabetes Mellitus. ADA recommended reference rangePerformed By: #### MG, LDLD, PHOS, A1C WTH eA, LIPID, HS TROP, CBC, CMP ####[place] [address] USAPotassium [Moles/Vol]4.1 mmol/LNormal3.5-5.1The [facility] Physician GroupComment on above:Order Comment: FASTING YPerformed By: #### MG, LDLD, PHOS, A1C WTH eA, LIPID, HS TROP, CBC, CMP ####[place] [phone] USAProtein [Mass/Vol]6.2 g/dLLow 6.4-8.9The [facility] Physician GroupComment on above:Order Comment: FASTING Y Performed By: #### MG, LDLD, PHOS, A1C WTH eA, LIPID, HS TROP, CBC, CMP ####[place] [address] USASodium [Moles/Vol]136 mmol/KPvhhek285-864Ulm [facility] Physician GroupComment on above: Order Comment: FASTING YPerformed By: #### MG, LDLD, PHOS, A1C WTH eA, LIPID, HS TROP, CBC, CMP ####[facility] [address] [place] [address] USAUrea nitrogen [Mass/Vol]22 mg/dLNormal7-25The [facility] Comment on above:Order Comment: FASTING YPerformed By: #### MG, LDLD, PHOS, A1C WTH eA, LIPID, HS TROP, CBC, CMP ####[facility] [address] [place] [address] USADipstick and Microscopicon 39-02-3956Anlugxezga (U) ClearNormalClearThe [facility] Physician GroupComment on above:Order Comment: Name Collection Type:: Clean-Voided MidstreamPerformed By: #### ADDONUAPLUS, CUU, URDS #### [facility] [address] [place] [address] USABacteria,UrineRareNormalNone SeenThe [facility] Physician GroupComment on above:Order Comment: Name Collection Type:: Clean-Voided MidstreamPerformed By: #### ADDONUAPLUS, CUU, URDS #### [facility] [address] [place] [address] USABilirubin,UrineNegativeNormalNegativeThe [facility] Physician GroupComment on above:Order Comment: Name Collection Type:: Clean- Voided MidstreamPerformed By: #### ADDONUAPLUS, CUU, URDS #### [facility] [address] [place] [id number] USAColor (U)Light-YellowNormalYellowThe [facility] Physician GroupComment on above:Order Comment: Name Collection Type:: Clean-Voided MidstreamPerformed By: #### ADDONUAPLUS, CUU, URDS #### [facility] [address] [place] [address] USAGlucose Ql (U)1000 mg/dLNormalNormalThe [facility] Physician GroupComment on above:Order Comment: Name Collection Type:: Clean- Voided MidstreamPerformed By: #### ADDONUAPLUS, CUU, URDS #### [facility] [address] [place] [address] USAHyaline Casts,UrineNoneNormal0-8The [facility] Physician GroupComment on above:Order Comment: Name Collection Type:: Clean-Voided MidstreamPerformed By: #### ADDONUAPLUS, CUU, URDS #### [place] [address] USAKetones Ql (U)NegativeNormalNegativeThe [facility] Physician GroupComment on above:Order Comment: Name Collection Type:: Clean- Voided MidstreamPerformed By: #### ADDONUAPLUS, CUU, URDS #### [place] [address] USALeukocyte esterase Test strip Ql (U)1+NormalNegativeThe [facility] Physician GroupComment on above:Order Comment: Name Collection Type:: Clean-Voided MidstreamPerformed By: #### ADDONUAPLUS, CUU, URDS #### [place] [address] USAMucus,UrineRareNormalThe [facility] Physician GroupComment on above:Order Comment: Name Collection Type:: Clean-Voided MidstreamResult Comment: PERFORMED BY: [place] [address] PATHOLOGIST IN SCHOOL SUSPENSION COORDINATOR YURI BROWN M.D.Performed By: #### ADDONUAPLUS, CUU, URDS #### [place] [address] USANitrite,UrineNegativeNormalNegativeThe [facility] Physician GroupComment on above:Order Comment: Name Collection Type:: Clean-Voided MidstreamPerformed By: #### ADDONUAPLUS, CUU, URDS #### [place] [id number] USAOccult Blood,UrineTraceNormalNegativeThe [facility] Physician GroupComment on above:Order Comment: Name Collection Type:: Clean- Voided MidstreamResult Comment: PERFORMED BY: [place] [address] PATHOLOGIST IN SCHOOL SUSPENSION COORDINATOR YURI BROWN M.D.Performed By: #### ADDONUAPLUS, CUU, URDS #### [place] [address] USApH (U)5.5 [pH]Normal5.0-9.0The [facility] Comment on above:Order Comment: Name Collection Type:: Clean-Voided Midstream Performed By: #### ADDONUAPLUS, CUU, URDS #### [place] [address] USAProtein (U) [Mass/Vol]70 mg/dLNormalNegativeThe [facility] Physician GroupComment on above:Order Comment: Name Collection Type:: Clean- Voided MidstreamPerformed By: #### ADDONUAPLUS, CUU, URDS #### [place] [address] USARBC,Vmuce9-7Gjclza7-5Kzu [facility] Physician GroupComment on above:Order Comment: Name Collection Type:: Clean-Voided MidstreamPerformed By: #### ADDONUAPLUS, CUU, URDS #### [place] [address] USASpecificy [place],Urine1.420Lhan2.001-1.030The [facility] Physician GroupComment on above:Order Comment: Name Collection Type:: Clean- Voided MidstreamPerformed By: #### ADDONUAPLUS, CUU, URDS #### [place] [address] USASquamous Epithelial Cell,Algsb9-4Otjoyp1-6Rcz [facility] Physician GroupComment on above:Order Comment: Name Collection Type:: Clean- Voided MidstreamPerformed By: #### ADDONUAPLUS, CUU, URDS #### [place] [address] USAUrobilinogen,UrineNormalNormalNormalThe [facility] Physician GroupComment on above:Order Comment: Name Collection Type:: Clean- Voided MidstreamPerformed By: #### ADDONUAPLUS, CUU, URDS #### [place] [address] USAWBC,Tabwl60-98Fgzjez9-7Fdu [facility] Comment on above:Order Comment: Name Collection Type:: Clean-Voided Midstream Performed By: #### ADDONUAPLUS, CUU, URDS #### [place] [address] USADrug Screen,Urineon 38-74-3216Oaivactqvva Screen,Urine NegativeNormalNegativeThe [facility] Physician GroupComment on above:Performed By: #### ADDONUAPLUS, CUU, URDS #### [place] [address] USABarbiturate Screen,UrineNegativeNormalNegativeThe [facility] Physician GroupComment on above:Performed By: #### ADDONUAPLUS, CUU, URDS #### [place] [address] USABenzodiazepines Screen,UrinePositiveNormalNegativeThe [facility] Physician GroupComment on above:Performed By: #### ADDONUAPLUS, CUU, URDS #### [place] [address] USACannabinoid Screen,UrineNegativeNormalNegativeThe [facility] Physician GroupComment on above:Result Comment: These are unconfirmed results and should not be used for legal purposes. Drug Cut-Off Concentration: AMPH 1000 ng/mL EZIO 200 ng/mL ERON 200 ng/mL COCM 300 ng/mL OP 300 ng/mL PCP 25 ng/mL THC 20 ng/mL PERFORMED BY: [place] [address] PATHOLOGIST IN SCHOOL SUSPENSION COORDINATOR YURI BROWN M.D.Performed By: #### ADDONUAPLUS, CUU, URDS #### [place] [address] USACocaine Screen,UrineNegativeNormalNegativeThe [facility] Physician GroupComment on above:Performed By: #### ADDONUAPLUS, CUU, URDS #### [facility] [address] [place] [address] USAOpiate Screen,UrineNegativeNormalNegativeThe [facility] Physician GroupComment on above:Performed By: #### ADDONUAPLUS, CUU, URDS #### [facility] [address] [place] [address] USAPhencyclidine Screen,UrineNegativeNormalNegativeThe [facility] Physician GroupComment on above:Performed By: #### ADDONUAPLUS, CUU, URDS #### [facility] [address] [place] [address] USAECG 12 lead ECGon [id number] 12 lead [facility]GRIV[facility] [place] [address] [place], [place] [id number] Electrocardiograph Report Signed Patient: Asa Thompson MR#: [id number] : 1970 Acct:[id number] Age/Sex: 54 / F ADM Date: 08/25/25 Loc: Room: [address] [place] [address] Type: ADM IN Attending Dr: Demarco Last MD Ordering Provider: Oscar Cevallos MD Date of Service: 08/26/25 ECG/ECG 12 lead ECG: chest pain Copies to: Test Reason : Blood Pressure : */* mmHG Vent. Rate : 94 BPM Atrial Rate : 94 BPM P-R Int : 138 ms QRS Dur : 78 ms QT Int : 370 ms P-R-T Axes : 21 -12 45 degrees QTcB Int : 462 ms Normal sinus rhythm Septal infarct (cited on or before 25-Aug-2025) Abnormal ECG When compared with ECG of 25-Aug-2025 21:43, (Unconfirmed) No significant change was found Confirmed by GERARDO FRANKS [facility], JEWELS ([id number]) on 08/26/2025 11:18:55 AM Referred By: Electronically Signed By: JEWELS CARRILLO MD FAC Transcribed By: MUS Signed By Jewels Carrillo MD, FACC 08/26/[address] [place] [address] Physician GroupECH echo transthoracicon [id number] echo transthoracicRIVERSIDE METHODIST [facility] Main [place] [address] [place] [address] Echocardiogram Signed Patient: Asa Thompson MR#: [id number] : 1970 Acct:[id number] Age/Sex: 54 / F ADM Date: 08/25/25 Loc: Room: [address] [place] [address] Type: ADM IN Attending Dr: Demarco Last MD Ordering Provider: Oscar Cevallos MD Date of Service: 08/25/25 ECH/ECH echo transthoracic: elevated troponin dyspnea Copies to: MD Jewels Perez MD, [facility] Weight: 256 lb Performed By: Mariusz Hastings RDCS, [facility] BSA: 2.2 m2 BP: 169/72 mmHg HR: 90 Reason For Study: elevated troponin dyspnea History: [place] NSTEMI HTN DM Interpretation Summary Mild to moderate concentric left ventricular hypertrophy. A variety of Doppler measurements indicate impaired left ventricular relaxation, which is associated with grade I/IV or mild diastolic dysfunction. The left atrium appears mildly dilated. Mild valvular aortic stenosis. The aortic valve peak velocity is 287 cm/s. The aortic valve maximum pressure gradient is 33 mmHg. The aortic valve mean gradient is 15 mmHg. Left ventricular systolic function is hyperdynamic. Ejection Fraction = >70%. There is no prior echocardiogram noted for this patient. Procedure/Quality: A two-dimensional transthoracic echocardiogram with color flow, Doppler and injection of contrast agent Definity was performed. The study was technically good in quality. There is no prior echocardiogram noted for this patient. Left Ventricle: Mild to moderate concentric left ventricular hypertrophy. Left ventricular systolic function is hyperdynamic. Ejection Fraction = >70%. A variety of Doppler measurements indicate impaired left ventricular relaxation, which is associated with grade I/IV or mild diastolic dysfunction. Left Atrium: The left atrium appears mildly dilated. The atrial septum appears normal. Right Atrium: The right atrium appears normal in size. Right Ventricle: The right ventricular size, thickness and function are normal. Aortic Valve: The aortic valve is moderately calcified. The aortic valve is trileaflet. Mild valvular aortic stenosis. The aortic valve peak velocity is 287 cm/s. The aortic valve maximum pressure gradient is 33 mmHg. The aortic valve mean gradient is 15 mmHg. Mitral Valve: The mitral valve is moderately sclerotic. There is moderate mitral annular calcification. Tricuspid Valve: The tricuspid valve is normal in structure. Pulmonic Valve: The pulmonic valve is not well seen, but is grossly normal. Arteries: The aortic root is normal size. Pericardium/Pleura: No pericardial effusion seen. There is no pleural effusion. IVC/Hepatic Veins: The IVC is normal in size with an inspiratory collapse of greater then 50%, suggesting normal right atrial pressure. Miscellaneous: No thrombus, vegetation or mass is seen. Measurements with Normals IVSd: 1.4 cm (0.7-1.1 cm)LVIDd: 3.5 cm (3.7-5.4 cm) LVPWd: 1.4 cm (0.7-1.1 cm)LVIDs: 2.2 cm (2.3-3.6 cm) LA dimension: 4.8 cm (2.3-4.0 cm)Ao root diam: 2.8 cm(2.0-3.6 cm) asc Aorta Diam: 3.0 cm(2.1-3.4cm) Doppler with Normals RVSP(TR): 36.1 mmHg (18-35mmHg) LV V1 max: 110.0 cm/sec (0.7-1.7m/s)MV E max krupa: 142.0 cm/sec(0.8-1.3m/s) MV A max krupa: 192.0 cm/sec(0.0-0.0m/s) MV E/A: 0.74 (<1.5) MMode/2D Measurements Calculations TAPSE: 1.8 cm RV Base: 3.4 cm FS: 37.7 % Ao root area: RV S Krupa: EDV(Teich): 49.1 ml 6.2 cm2 18.1 cm/sec ESV(Teich): 15.3 ml EF(Teich): 68.9 % __ LVOT diam: 2.1 cm LVLd ap4: 8.6 cm SV(MOD-sp4): 62.2 ml LAV(MOD-sp4): LVOT area: 3.5 cm2 EDV(MOD-sp4): 46.9 ml 87.3 ml LAV(MOD-sp2): LVLs ap4: 7.3 cm 56.9 ml ESV(MOD-sp4): 25.1 ml EF(MOD-sp4): 71.2 % __ LA A2 area: 20.0 cm2 RA Volume: RA Volume Index: LA A4 area: 19.0 cm2 23.6 ml 10.7 ml/m2 LA length (vol): 6.3 cm LA vol: 51.4 ml LA vol index: 23.4 ml/m2 Doppler Measurements Calculations MV dec time: MV V2 max: E/E' lat: 16.6 MV dec slope: 0.29 sec 194.0 cm/sec E/E' med: 22.4 481.0 cm/sec2 MV max P.1 mmHg MV V2 mean: 93.0 cm/sec MV mean P.0 mmHg MV V2 VTI: 49.8 cm MVA(VTI): 1.8 cm2 __ Ao V2 max: LV V1 max PG: TV max PG: TR max krupa: 287.0 cm/sec 4.8 mmHg 28.0 mmHg 265.0 cm/sec Ao max PG: LV V1 mean PG: TR max P.1 mmHg 32.9 mmHg 3.0 mmHg RAP systole: 8.0 mmHg Ao mean PG: LV V1 mean: 15.0 mmHg 80.0 cm/sec Ao V2 mean: LV V1 VTI: 25.7 cm 183.0 cm/sec Ao V2 VTI: 55.0 cm BREE(I,D): 1.6 cm2 BREE(V,D): 1.3 cm2 Transcribed By: SCV Performed At: 08/26/25 0835 Signed By: Jewels Carrillo MD, FACC 08/26/[address] [place] [address] Physician GroupGas panel (BldV)on 34-28-7296Xgukx gap 4 (BldV) [Moles/Vol]14.0 mmol/L Muidkt30.0-25.0[facility] HospitalComment on above: Performed By: #### [id number] #### HEAVEN Goyal ([id number]) [facility] ([facility]) [address] [place], [place] [address]Pudq excess Calc (BldV) [Moles/Vol]-4.8000 mmol/LLow-2.0-3.0 [facility] HospitalComment on above:Performed By: #### [id number] #### HEAVEN Goyal ([id number]) [facility] ([facility]) [id number] [place] [address] [id number].ionized (BldV) [Moles/Vol]1.18 mmol/LNormal1.10-1.33 [facility] HospitalComment on above:Performed By: #### [id number] #### HEAVEN Goyal ([id number]) [facility] ([facility]) [id number] [place] [address] [id number] (BldV) [Moles/Vol]103 mmol/OYduwjp33-241AsssmufbudPremier Health [facility] HospitalComment on above:Performed By: #### [id number] #### HEAVEN Goyal ([id number]) [facility] ([facility] [facility]) [id number] [place] [address] 69520XP8 (BldV) [Partial pressure]38 mm RaEbd99-32CcxqidpftwPremier Health Miami Valley HospitalComment on above:Performed By: #### 45515-3 #### HEAVEN Goyal (15803) [facility] ([facility]) [address] [place] [address] 59694Lggvnok [Mass/Vol]302 mg/gAPqhd12-98GystbdiojtPremier Health Miami Valley HospitalComment on above:Performed By: #### 67851-2 #### HEAVEN Goyal (77511) [facility] ([facility]) [address] [place] [address] 89126JLD9 (Bld) [Moles/Vol]20.5 mmol/LLow22.0-26.0[facility] HospitalComment on above:Performed By: #### 95897-3 #### HEAVEN Goyal (82190) [facility] ([facility]) [address] [place] [address] 26636Ugzgtsnisc Est (Bld) [Volume fraction]35.0 %Low36.0-46.0 [facility] HospitalComment on above:Performed By: #### 79425-6 #### HEAVEN Goyal ([id number]) [facility] ([facility]) [address] [place] [address] 93835Dqyhflcgec (Bld) [Mass/Vol]11.6 g/dLLow12.0-16.0[facility] HospitalComment on above:Performed By: #### 95903-5 #### HEAVEN Goyal (30063) [facility] ([facility]) [address] [place] [address] 82908Ubglfad oxygen uyppggaemtcjc38 %NormalUnTuscarawas HospitalComment on above:Performed By: #### 60506-0 #### HEAVEN Goyal (40833) [facility] ([facility]) [address] [place] [address] 68215Xvwbhuv (BldV) [Moles/Vol]4.1 mmol/LCritically high0.4-2.0 [facility] HospitalComment on above:Performed By: #### 18753-0 #### HEAVEN Goyal (48657) [facility] ([facility]) [address] [place] [address] 85439Tfqupr (BldV) [Partial pressure]54 mm DlCpfd58-79BtyrtorkgkPremier Health Miami Valley HospitalComment on above:Performed By: #### 23772-2 #### HEAVEN Goyal (59309) [facility] ([facility]) [address] [place] [address] 16394Etsdfo saturation in Venous blood82 %Mwpj59-58YuaanqeeuuPremier Health Miami Valley HospitalComment on above:Performed By: #### 89737-1 #### HEAVEN Goyal (40135) [facility] ([facility]) [address] [place], [place] [address]Efmveyrinkydo (BldV) [Mass fraction]80.5 %High45.0-75.0 [facility] HospitalComment on above:Performed By: #### 37604-9 #### HEAVEN Goyal (22749) [facility] ([facility]) [address] [place], [place] [address]cC (BldV)7.34 [pH]Normal7.33-7.43UnTuscarawas HospitalComment on above:Performed By: #### 67113-0 #### HEAVEN Goyal (73881) [facility] ([facility]) [address] [place] [address] 21682Zdfhacyhs (BldV) [Moles/Vol]5.8 mmol/LHigh3.5-5.3UnTuscarawas HospitalComment on above:Performed By: #### 31727-5 #### HEAVEN Goyal (14197) [facility] ([facility]) [address] [place], [place] [address]Ktbydi (BldV) [Moles/Vol]132 mmol/BHyz646-741CvjocvpmsxTuscarawas HospitalComment on above:Performed By: #### 37685-4 #### HEAVEN Goyal (70030) [facility] ([facility]) [address] [place] [address] 81321Ogqdrjo Poct Glucometerson 79-33-5736Tkrjegr0Hbg5: Cleaned MeterNoECU Health Roanoke-Chowan Hospital Physician GroupComment on above:Result Comment: PERFORMED BY: [place] [address] [place] [address] PATHOLOGIST IN SCHOOL SUSPENSION COORDINATOR YURI BROWN M.D.Performed By: #### GLULS #### Point of Care testing ,Glucose [Mass/Vol]362 mg/dLNemours Children's Hospital Physician GroupComment on above: Result Comment: Random Glucose Reference Range is dependent on time and content of last meal. Glucose of more than 200 mg/dL in a nonstressed, ambulatory subject supports the diagnosis of Diabetes Mellitus.Performed By: #### GLULS #### Point of Care testing ,Jlufbfy5Vyy0: Cleaned MeterNoECU Health Roanoke-Chowan Hospital Physician GroupComment on above: Result Comment: PERFORMED BY: [facility] [address] [place] [address] PATHOLOGIST IN SCHOOL SUSPENSION COORDINATOR YURI BROWN M.D.Performed By: #### GLULS #### Point of Care testing ,Glucose [Mass/Vol]269 mg/dLNoECU Health Roanoke-Chowan Hospital Physician GroupComment on above: Result Comment: Random Glucose Reference Range is dependent on time and content of last meal. Glucose of more than 200 mg/dL in a nonstressed, ambulatory subject supports the diagnosis of Diabetes Mellitus.Performed By: #### GLULS #### Point of Care testing ,Glucose [Mass/Vol]250 mg/dLNoECU Health Roanoke-Chowan Hospital Physician GroupComment on above: Result Comment: Random Glucose Reference Range is dependent on time and content of last meal. Glucose of more than 200 mg/dL in a nonstressed, ambulatory subject supports the diagnosis of Diabetes Mellitus. PERFORMED BY: [address] [place] [address] PATHOLOGIST IN SCHOOL SUSPENSION COORDINATOR YURI BROWN M.D.Performed By: #### GLULS ####Point of Care testing,Glucose Test strip manual (Bld) [Mass/Vol]on 21-22-9967Swawzzo [Mass/Vol]285 mg/dLRiver Park Hospital 74-99Prem[facility] Valley HospitalComment on above:Performed By: #### 2341-6 #### HEAVEN Goyal (49391) [facility] ([facility]) [address] [place] [address] 88440EyY7s (Bld) [Mass fraction]on 14-72-5418Qrxlgls glucose Estimated from glycated hemoglobin (Bld) [Mass/Vol]246 mg/dLNormalAultman Alliance Community HospitalComment on above:Order Comment: Diagnosis of Niotefxs-QlgftjFqz-Owawnvxv: < or = 5.6%Increased risk for developing diabetes: 5.7-6.4%Diagnostic of diabetes: > or = 6.5%Performed By: #### 2341-6 #### HEAVEN Goyal (35321) [facility] ([facility]) [address] [place] [address] 68306Oiftgbsrit A1c/Hemoglobin.totalon 31-60-4008IpG3z (Bld) [Mass fraction]10.2 %HighSee commentUnTuscarawas Hospital Comment on above:Order Comment: Diagnosis of Biyneejj-BfpvshQor-Rlhxguhe: < or = 5.6%Increased risk for developing diabetes: 5.7-6.4%Diagnostic of diabetes: > or = 6.5%Performed By: #### 2341-6 #### HEAVEN Goyal (36659) [facility] ([facility]) [address] [place] [address] 47289Kerfjoe.unfractionatedon 09-35-1168Nqzddec unfractionated Chromogenic method Qn (PPP)0.7 IU/mLNormalSee Comment Below for Therapeutic RangesUnTuscarawas HospitalComment on above:Order Comment: The therapeutic reference range for UFH may be either 0.3-0.6 IU/mL or 0.3-0.7 IU/mLbased on the clinical setting for anticoagulant therapy and the associated nomogram used. For Heparin dosing guidelines based on clinical scenario and Heparin Assay results, please refer to local Pharmacy and the [facility] Guidelines for Anticoagulation Therapy available on the [facility] intranet at: [email or web address]_[email or web address] [email or web address]_[email or web address].aspxPerformed By: #### 3274-8 #### HEAVEN Goyal (06502) [facility] ([facility]) [address] [place] [address] 08150Vaywowu function 2000 panelon 22-29-9028Vmsjapc BCP dye [Mass/Vol]3.8 g/dLNormal3.4-5.0[facility] Comment on above:Performed By: #### 42692-1 #### HEAVEN Goyal (58834) [facility] ([facility]) [address] [place] [address] 05853AEV [Catalytic activity/Vol]103 U/CYgzlar51-896DcdtpamxuqTuscarawas HospitalComment on above:Performed By: #### 25529-6 #### HEAVEN Goyal (19510) [facility] ([facility]) [address] [place] [address] 87785AFR With P-5'-P [Catalytic activity/Vol]19 U/LNormal7-45 [facility] HospitalComment on above:Result Comment: Patients treated with Sulfasalazine may generate falsely decreased results for ALT.Performed By: #### 60105-0 #### HEAVEN Goyal (69735) [facility] ([facility]) [address] [place] [address] 16867KDP With P-5'-P [Catalytic activity/Vol]40 U/LHigh9-39 [facility] HospitalComment on above:Performed By: #### 94004-3 #### HEAVEN Goyal (42604) [facility] ([facility]) [address] [place] [address] 28389Bxsspeemj [Mass/Vol]0.5 mg/dLNormal0.0-1.2UnTuscarawas HospitalComment on above:Performed By: #### 99047-5 #### HEAVEN Goyal (35010) [facility] ([facility]) [address] [place] [address] 77818Jgexyntgi.direct [Mass/Vol]0.1 mg/dLNormal0.0-0.3UnTuscarawas HospitalComment on above:Performed By: #### 34857-8 #### HEAVEN Goyal (52241) [facility] ([facility]) [address] [place] [address] 24973Djkitgv [Mass/Vol]6.3 g/dLLow6.4-8.2UnTuscarawas HospitalComment on above:Performed By: #### 14326-8 #### HEAVEN Goyal (19650) [facility] ([facility]) [address] [place] [address] 57272CDS Cholesterol Measuredon 16-80-0986EEQ Cholesterol Measured 117 mg/dLHigh0-100The [facility] Physician GroupComment on above:Order Comment: FASTING YResult Comment: LDL ATP III CLASSIFICATION LDL less than 100 mg/dL Optimal LDL 100-129 mg/dL Near or above optimal LDL 130-159 mg/dL Borderline high LDL 160-189 mg/dL High LDL greater than 189 mg/dL Very high PERFORMED BY: [facility] [address] [place] [address] PATHOLOGIST IN SCHOOL SUSPENSION COORDINATOR YURI BROWN M.D.Performed By: #### MG, LDLD, PHOS, A1C WTH eA, LIPID, HS TROP, CBC, CMP ####[place] [address] [place] [address] USALipid Panelon 66-37-6933Opmpwbdjnkc [Mass/Vol]227 mg/mFMnoz608-629Wfp [facility] Physician GroupComment on above:Result Comment: Chol less than 200 mg/dl low risk Chol 201-239 mg/dl borderline risk Chol 240 mg/dl and greater high riskPerformed By: #### LIPID ####[address] [address] USACholesterol in HDL [Mass/Vol]38 mg/nIKpwryu44-31Meq [facility] Physician GroupComment on above: Result Comment: HDL CHOL ATP-III CLASSIFICATION Cardiovascular Risk HDL > or equal to 60 mg/dL LOW HDL < 40 mg/dL HIGHPerformed By: #### LIPID ####[address] [address] USACholesterol.total/Cholesterol in HDL [Mass ratio]6.0 {ratio}Normal<5.0The [facility] Physician GroupComment on above: Result Comment: PERFORMED BY: [facility] [address] [place] [address] PATHOLOGIST IN SCHOOL SUSPENSION COORDINATOR YURI BROWN M.D.Performed By: #### LIPID ####[address] [address] USALDL Cholesterol,Zyshmrogvt72 mg/dL Normal0-100The [facility] Physician GroupComment on above:Result Comment: LDL ATP III CLASSIFICATION LDL less than 100 mg/dL Optimal LDL 100-129 mg/dL Near or above optimal LDL 130-159 mg/dL Borderline high LDL 160-189 mg/dL High LDL greater than 189 mg/dL Very highPerformed By: #### LIPID ####[place] [address] USATriglyceride w/Reflex 486 mg/dLHigh0-149The [facility] Physician GroupComment on above:Result Comment: TRIG ATP III CLASSIFICATION TRIG less than 150 mg/dL Normal TRIG 150-199 mg/dL Borderline high TRIG 200-500 mg/dL High TRIG greater than 500 mg/dL Very high Standard traceable to the Center for Disease Conrtrol and Prevention (CDC) test method. If the triglyceride result is greater than 400, LDLC and related calculations cannot be calculated and resulted.Performed By: #### LIPID ####[place] [address] USAVLDL CHOLESTEROLNot performedNormalThSteele Memorial Medical Center Physician Ummc Holmes CountyComment on above: Performed By: #### LIPID ####[place] [address] USACholesterol [Mass/Vol]223 mg/tFHzvn138-015Eng [facility] Physician GroupComment on above:Order Comment: FASTING YResult Comment: Chol less than 200 mg/dl low risk Chol 201-239 mg/dl borderline risk Chol 240 mg/dl and greater high riskPerformed By: #### MG, LDLD, PHOS, A1C WTH eA, LIPID, HS TROP, CBC, CMP ####[place] [address] USACholesterol in HDL [Mass/Vol]36 mg/mOYverzg04-20[facility] [place] Physician Ummc Holmes CountyComment on above:Order Comment: FASTING YResult Comment: HDL CHOL ATP-III CLASSIFICATION Cardiovascular Risk HDL > or equal to 60 mg/dL LOW HDL < 40 mg/dL HIGHPerformed By: #### MG, LDLD, PHOS, A1C WTH eA, LIPID, HS TROP, CBC, CMP ####[place] [address] USACholesterol.total/Cholesterol in HDL [Mass ratio]6.2 {ratio}Normal<5.0 [facility] Physician GroupComment on above:Order Comment: FASTING YResult Comment: PERFORMED BY: [facility] [address] [place] [id number] PATHOLOGIST IN SCHOOL SUSPENSION COORDINATOR YURI BROWN M.D.Performed By: #### MG, LDLD, PHOS, A1C WTH eA, LIPID, HS TROP, CBC, CMP ####[place] [address] [place] [id number] USALDL Cholesterol,Xrjyhjodkm98 mg/dLNormal0-100The [facility] Physician GroupComment on above:Order Comment: FASTING YResult Comment: LDL ATP III CLASSIFICATION LDL less than 100 mg/dL Optimal LDL 100-129 mg/dL Near or above optimal LDL 130-159 mg/dL Borderline high LDL 160-189 mg/dL High LDL greater than 189 mg/dL Very highPerformed By: #### MG, LDLD, PHOS, A1C WTH eA, LIPID, HS TROP, CBC, CMP ####[place] [address] [place] [id number] USATriglyceride w/Rersau830 mg/dLHigh0-149The [facility] Physician GroupComment on above:Order Comment: FASTING YResult Comment: TRIG ATP III CLASSIFICATION TRIG less than 150 mg/dL Normal TRIG 150-199 mg/dL Borderline high TRIG 200-500 mg/dL High TRIG greater than 500 mg/dL Very high Standard traceable to the Center for Disease Conrtrol and Prevention (CDC) test method. If the triglyceride result is greater than 400, LDLC and related calculations cannot be calculated and resulted.Performed By: #### MG, LDLD, PHOS, A1C WTH eA, LIPID, HS TROP, CBC, CMP ####[facility] [place] [address] USAVLDL CHOLESTEROLNot performedNormalThe [facility] Physician GroupComment on above:Order Comment: FASTING YPerformed By: #### MG, LDLD, PHOS, A1C WTH eA, LIPID, HS TROP, CBC, CMP ####[place] [address] [place] [id number] USAMagnesiumon 08-26-2025 Magnesium [Mass/Vol]2.11 mg/dLNormal1.60-2.40[facility] HospitalComment on above:Performed By: #### 88840-3 #### HEAVEN Goyal (71047) [facility] ([facility]) [address] [place] [address] 32577Qdmuasqet [Mass/Vol]1.6 mg/dLLow1.9-2.7The [facility] Physician GroupComment on above:Order Comment: FASTING YPerformed By: #### MG, LDLD, PHOS, A1C WTH eA, LIPID, HS TROP, CBC, CMP ####[facility] [address] [place] [address] USANatriuretic peptide B [Mass/Vol]on 68-68-4550Qvpddrckphl peptide B (Bld) [Mass/Vol]104 pg/mLHigh0-99UnTuscarawas HospitalComment on above:Order Comment: <100 pg/mL - Heart failure gfsqmdos931-503 pg/mL - Intermediate probability of acute heart failure exacerbation. Correlate with clinical context and patient history. >=300 pg/mL - Heart Failure likely. Correlate with clinical context and patient history.Biotin interference may cause falsely decreased results. Patients taking a Biotin dose of up to 5 mg/day should refrain fromtaking Biotin for 24 hours before sample collection. Providers may contact their local laboratory for further information.Performed By: #### 2341-6 #### HEAVEN Goyal (57215) [facility] ([facility]) [address] [place], [place] [address]DO and aPTT panel Coag (PPP)on 47-59-6048sSZT Coag (PPP) [Time]72 xWzle44-00WnhrjhsbecTuscarawas HospitalComment on above:Order Comment: The APTT is no longer used for monitoring Unfractionated Heparin Therapy. For monitoring Heparin Therapy, use the Heparin Assay.Performed By: #### 29236-0 #### HEAVEN Goyal (45269) [facility] ([facility]) [address] [place] [address] 74948FTK Coag (PPP) [Relative time]1.7Ymbikt4.9-1.1[facility] Knapp Medical CenterComment on above:Order Comment: The APTT is no longer used for monitoring Unfractionated Heparin Therapy. For monitoring Heparin Therapy, use the Heparin Assay.Performed By: #### 70123-0 #### HEAVEN Goyal (06223) [facility] ([facility]) [address] [place] [address] 10289TP Coag (PPP) [Time]11.8 sNormal9.8-12.4[facility] HospitalComment on above:Order Comment: The APTT is no longer used for monitoring Unfractionated Heparin Therapy. For monitoring Heparin Therapy, use the Heparin Assay.Performed By: #### 02018-5 #### HEAVEN Goyal (91039) [facility] ([facility]) [address] [place] [address] 11440Ftiqbtezdnv 76-15-8948Gflwdeoea [Mass/Vol]4.1 mg/dLNormal 2.5-4.9[facility] HospitalComment on above:Performed By: #### 2777-1 #### HEAVEN Goyal (78132) [facility] ([facility]) [address] [place] [address] 90798Zmmhrbjpghgr 42-42-6115Stgrtlmzq [Mass/Vol]4.6 mg/dLHigh 2.5-4.5The [facility] Physician GroupComment on above:Order Comment: FASTING Y Performed By: #### MG, LDLD, PHOS, A1C WTH eA, LIPID, HS TROP, CBC, CMP ####[facility] [address] TRANSTHORACIC ECHO (TTE) LIMITEDon 18-00-1624VKYQXRSMSHCPJ ECHO (TTE) [facility], [address] [place] [address] and TRANSTHORACIC ECHOCARDIOGRAM REPORT Patient Name: ASA Frias Physician: [id number] Gilmar Branham MD Study Date: 08/26/2025 Ordering Provider: [id number] SPENCER KONG MRN/PID: [id number] Fellow: Nurse: Date of /Age: 11 1970 Health Promoter: Fellow Exam years Gender assigned at F Additional Staff: : BSA / BMI: m2 / kg/m2 Study Type: TRANSTHORACIC ECHO (TTE) LIMITED Diagnosis/ICD: 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 PHYSICIAN INTERPRETATION: Left Ventricle: The left [...] VALVE/RVSP: Normal Ranges: Est. RA Pressure: 3 [id number] Gilmar Branham MD Electronically signed on 08/27/2025 at 1:52:36 PM Final CONCLUSIONS: 1. The left ventricle was not well visualized. The left ventricular ejection fraction could not be measured. 2. There is moderate aortic valve cusp calcification. 3. There is moderate mitral annular calcification.[facility] HospitalTroponin I High Sensitivityon 98-70-9377Lnjxhabm I High Guecirvzlmp94Csp scale high0-15[facility] Physician [facility]mmc Holmes CountyComment on above: Result Comment: Critical Result : Called to and read back by: VIDYA FOX at: 08/26/2025 05:15:16 by:SUSAN The Troponin units of report have been changed to meet the Chest Pain Accreditation requirement, element EC5.M1l2. Troponin units are changed from pg/ml to ng/L. Also, the decimal is removed and results are in whole numbers. PERFORMED BY: [place] [address] PATHOLOGIST IN SCHOOL SUSPENSION COORDINATOR YURI BROWN M.D.Performed By: #### MG, LDLD, PHOS, A1C WTH eA, LIPID, HS TROP, CBC, CMP ####[facility] [address] [place] [id number] USATroponin I High Slmyepavovz21Oiu scale high0-15The [facility] Physician Ummc Holmes CountyComment on above:Result Comment: Critical Result : Called to and read back by: VIDYA FOX at: 08/26/2025 02:56:49 by:SUSAN The Troponin units of report have been changed to meet the Chest Pain Accreditation requirement, element EC5.M1l2. Troponin units are changed from pg/ml to ng/L. Also, the decimal is removed and results are in whole numbers. PERFORMED BY: [place] [address] PATHOLOGIST IN SCHOOL SUSPENSION COORDINATOR YURI BROWN M.D.Performed By: #### HS TROP #### [facility] [address] [place] [id number] USATroponin I.cardiac panelon 13-08-4245Bvlxhvyq I.cardiac panel High sensitivity bqezbt0513 ng/LCritically high0-34[facility] HospitalComment on above:Order Comment: Less than 99th percentile of normal range [...] performed using a different testing methodology at [facility] than at other [facility]. Direct result comparisons should only be made within the same method.Performed By: #### 30295-0 #### HEAVEN Goyal (51993) [facility] ([facility]) [address] Cultureon 84-55-9753Jnhttlev identified Cx Nom (U) ORGANISM: Escherichia coli (O:ESCCOL) [place] Count >100,000 ORGANISM: Escherichia coli (O:ESCCOL) [place] Count >100,000 Aerobic MAGDI Charge (NMIC56) SUSCEPTIBILITY ORGANISM: O:ESCCOL ANTIBIOTIC INTERPRETATION MAGDI Amikacin S <16 Amoxacillin/K Clavulanate S <8 Ampicillin S <8 Ampicillin/Sulbactam S <4 Aztreonam S <4 Cefazolin S <2 Cefepime S <2 Ceftazidime S <1 Ceftazidime/Avibactam S <4 Ceftolozane/Tazobactam S <2 Ceftriaxone S <1 Cefuroxime S <4 Ciprofloxacin S <0.25 Ertapenem S <0.5 Gentamicin S <2 Levofloxacin S <0.5 Meropenem S <1 Meropenem/Vaborbactam S <2 Nitrofurantoin S <32 Piperacillin/Tazobactam S <8 Tetracycline S <4 Tigecycline S <2 Tobramycin S <2 Trimethoprim/Sulfamethoxazole S <0.5 Aerobic MAGDI Charge (NMIC56) SUSCEPTIBILITY ORGANISM: O:ESCCOL ANTIBIOTIC INTERPRETATION MAGDI Amikacin S <16 Amoxacillin/K Clavulanate S <8 Ampicillin S <8 Ampicillin/Sulbactam S <4 Aztreonam S <4 Cefazolin S <2 Cefepime S <2 Ceftazidime S <1 Ceftazidime/Avibactam S <4 Ceftolozane/Tazobactam S <2 Ceftriaxone S <1 Cefuroxime S <4 Ciprofloxacin S <0.25 Ertapenem S <0.5 Gentamicin S <2 Levofloxacin S <0.5 Meropenem S <1 Meropenem/Vaborbactam S <2 Nitrofurantoin S <32 Piperacillin/Tazobactam S <8 Tetracycline S <4 Tigecycline S <2 Tobramycin S <2 Trimethoprim/Sulfamethoxazole S <0.5 S = SUSCEPTIBLE I = INTERMEDIATE R = RESISTANT BLANK = DATA NOT AVAILABLE, OR DRUG NOT ADVISABLE OR TESTED R* = RESISTANCE DUE TO EXTENDED SPECTRUM BETA-LACTAMASES ESBL = EXTENDED SPECTRUM BETA-LACTAMASE TFG = THYMIDINE-DEPENDENT STRAIN MAXI = BETA-LACTAMASE POSITIVE IB = INDUCIBLE BETA-LACTAMASE. APPEARS IN PLACE OF 'S' WITH SPECIES KNOWN TO POSSESS INDUCIBLE BETA-LACTAMASES. POTENTIALLY THEY MAY BECOME RESISTANT TO ALL B-LACTAM DRUGS. PERFORMED BY: [facility] [address] [place] [address] PATHOLOGIST IN [employer]OL SUSPENSION COORDINATOR YURI BROWN M.D.[facility] Physician GroupComment on above: Performed By: #### CARLOS ALBERTO LAND, URDS ####[facility] [id number] [place] [address] USAVERAB/VERIFY ABORHon [id number] group Nom (Bld)[facility]uther[facility] HospitalComment on above:Order Comment: This is for confirming/verifying history of ABORh on file for transfusion of bloodproducts. If this is not for transfusion, please order an ABO/RH [[id number]]. If you have any questions or unsure what to order, please call the blood bank.Performed By: #### 2341-6 #### HEAVEN Goyal ([id number]) [facility] ([facility]) [id number] [place] [address] (Bld)PositiveNoChillicothe HospitalComment on above:Order Comment: This is for confirming/verifying history of ABORh on file for transfusion of bloodproducts. If this is not for transfusion, please order an ABO/RH [[id number]]. If you have any questions or unsure what to order, please call the blood bank.Performed By: #### 2341-6 #### HEAVEN Goyal ([id number]) [facility] ([facility]) [address] [place], [place] [address]SQ CHEST 1 VIEWon 81-14-0142WI CHEST 1 VIEWInterpreted By: Colin Rm and Ogievich Taessa STUDY: XR CHEST 1 VIEW; 08/27/2025 2:00 am INDICATION: Signs/Symptoms:IABP. COMPARISON: None. ACCESSION NUMBER(S): [id number] ORDERING CLINICIAN: SPENCER KONG FINDINGS: AP radiograph of the chest was provided. LINES/TUBES/DEVICES: Intra-aortic balloon pump with the radiopaque marker projects at the level of T5, estimated to be at the descending thoracic aorta. CARDIOMEDIASTINAL SILHOUETTE: Cardiomediastinal silhouette is enlarged in size and configuration. LUNGS: Low lung volumes with bronchovascular crowding. Prominent interstitial lung markings throughout. Blunting of the right costophrenic angle. No evidence of pneumothorax. ABDOMEN: No remarkable upper abdominal findings. BONES: No acute osseous changes. IMPRESSION: 1. The intra-aortic balloon pump (IABP) radiopaque tip projects at the level of T5, consistent with positioning within the descending thoracic aorta. Recommend slight advancement to position the tip just distal to the origin of the left subclavian artery for optimal function. 2. Findings suggestive of pulmonary edema with small right pleural effusion. I personally reviewed the images/study and I agree with the findings as stated by Hannah Franklin DO, PGY-4. This study was interpreted at [facility], [place], [place]. MACRO: None Signed by: Colin Rm 08/27/2025 4:32 PM Dictation workstation: [id number]a Fostoria Community HospitalAnti-Xa UF Heparinon 58-56-3770Jzev-Xa UF Heparin0.82Aztzdf6.30-0.70The [facility]mount Behavioral Health SystemComment on above:Result Comment: Use the aPTT protocol when triglycerides are > 800 mg/dL, total bilirubin is > 20 mg/dL and/or patient has received a DOAC, Fondaparinux or LMWH within 72 hours AND baseline anti-Xa level is > 0.7 units/mL PERFORMED BY: [place] [address] PATHOLOGIST IN SCHOOL SUSPENSION COORDINATOR YURI BROWN M.D.Performed By: #### PT, PTT, HS TROP, UFHEP ####[facility] [address] [place] [id number] USAECG 12 lead ECGon 44-76-8599GJR 12 lead ECGRIVERSIDE [facility]IST [facility] Main [place] [address] [place] [address] Electrocardiograph Report Signed Patient: Asa Thompson MR#: [id number] : 1970 Acct:[id number] Age/Sex: 54 / F ADM Date: 08/25/25 Loc: Room: [address] [place] [address] Type: ADM IN Attending Dr: Demarco Last MD Ordering Provider: Dagmar Harrison APRN Date of Service: 08/25/25 ECG/ECG 12 lead ECG: chest pain Copies to: Test Reason : Blood Pressure : */* mmHG Vent. Rate : 96 BPM Atrial Rate : 96 BPM P-R Int : 138 ms QRS Dur : 70 ms QT Int : 346 ms P-R-T Axes : 49 -8 42 degrees QTcB Int : 437 ms Normal sinus rhythm Septal infarct , age undetermined Abnormal ECG No previous ECGs available Confirmed by GERARDO FRANKS [facility], JEWELS ([id number]) on 08/26/2025 11:18:48 AM Referred By: Electronically Signed By: JEWELS CARRILLO MD [facility] Transcribed By: MUS Signed By Jewels Carrillo MD, FACC 08/26/25 1118NoEC[facility] Physician [facility]mmc Holmes CountyGlucose Poct Glucometerson 87-18-7534Wwexqlv [Mass/Vol]269 mg/dLNemours Children's Hospital Physician GroupComment on above:Result Comment: Random Glucose Reference Range is dependent on time and content of last meal. Glucose of more than 200 mg/dL in a nonstressed, ambulatory subject supports the diagnosis of Diabetes Mellitus. PERFORMED BY: [facility] [address] [place] [address] PATHOLOGIST IN SCHOOL SUSPENSION COORDINATOR YURI BROWN M.D.Performed By: #### GLULS ####Point of Care testing,Partial Thromboplastin Timeon 62-20-0703nWAW Coag (Bld) [Time]37.3 sHigh25.1-36.5The [facility] Physician GroupComment on above:Result Comment: A hematocrit value greater than 55% may lead to inaccurate results in coagulation testing. Patients having hematocrit values >55% require a special collection tube for coagulation studies. Please contact the laboratory at [phone] for redraw instructions.Performed By: #### PT, PTT, HS TROP, UFHEP ####[facility] [address] [place] [address] USAProthrombin Time INRon 23-59-1190XTP Coag (PPP) [Relative time]1.0 {INR}NormalThe [facility] Cabarrus Physician GroupComment on above:Result Comment: INR Therapeutic Range A) Pre- and Peroperative OAT started two weeks before surgery. NOT HIP SURGERY: 1.5 - 2.5 HIP SURGERY: 2 - 3 B) Primary and secondary prevention of venous THROMBOSIS: 2 - 3 C) Active venous thrombosis, pulmonary embolism and prevention of recurrent venous thrombosis: 2 - 3 D) Prevention of arterial thromboembolism including patients with mechanical heart valves: 3 - 4.5Performed By: #### PT, PTT, HS TROP, UFHEP ####[address] [place] [address] USAPT Coag (PPP) [Time]10.9 sNormal9.0-12.9The [facility] Physician GroupComment on above:Result Comment: A hematocrit value greater than 55% may lead to inaccurate results in coagulation testing. Patients having hematocrit values >55% require a special collection tube for coagulation studies. Please contact the laboratory at [phone] for redraw instructions.Performed By: #### PT, PTT, HS TROP, UFHEP ####[facility] [address] [place] [address] USATroponin I High Sensitivityon 82-86-2284Iikahcph I High Mxazmfbkqsj42Tne scale high0-15The [facility] Physician GroupComment on above:Result Comment: Critical Result : Called to and read back by: VIDYA FOX at: 08/25/2025 23:06:47 by:SUSAN The Troponin units of report have been changed to meet the Chest Pain Accreditation requirement, element EC5.M1l2. Troponin units are changed from pg/ml to ng/L. Also, the decimal is removed and results are in whole numbers. PERFORMED BY: [facility] [address] [place] [address] PATHOLOGIST IN SCHOOL SUSPENSION COORDINATOR YURI BROWN M.D.Performed By: #### PT, PTT, HS TROP, UFHEP ####[facility] [place] [address] USANURSNOTEon 11-01-2024 NURSNOTERN educated pt on d/c instructions. This included: site care, limited physical activity, resume normal diet, future appointments, medications, and moderate sedation instructions. RN educated pt on when to notify physician and when to go to the hospital. RN encouraged pt to voice any questions or concerns, and answered any questions or concerns if pt verbalized. Pt was wheeled off of unit with all of belongings.[facility] NorthNURSNOTEBedside swallow study completed and passed.Normal [facility] MemorialTelephoneon [id number] Asa Thompson 1970 F Date Provider Department Center 10/24/2024 FERMIN NICHOLS [facility] V[facility] LAB UT HeartVAS Family History Problem Relation Age of Onset Coronary artery disease Father Other Father Family Status - Relation Status Age at FatherNormalUniKettering Health Preble36on 32-61-038655Rzqhkzt returned my call. She is not having fever or chills. She agrees to complete blood cultures and ANGEL. Orders entered.[facility]36Regarding echo result from 09/13/2024: MD Francheska Zuleta MA Please let the patient know her echo shows an abnormality that may indicate an infection on the mitral valve If she is having fevers, chills or other unusual symptoms, she needs to be seen by her PCP nitin Otherwise, please 1. Order blood cultures x2 2. Schedule her for a ANGEL with 1st available doc Thanks for patient to return my call.[facility] NorthCBC AND AUTO DIFFon 42-75-7167OQDCGOAK BASOPHIL0.0 X10E9/LNormal0.0-0.2ProMedica St. Vincent Medical CenterComment on above:Performed By: #### CBCA, 52340-8, CMP #### [facility] ([id number]) [address] [place] [address] 89833 #### HA1C #### [facility] ([id number]) [address] [facility] [place], [place] [address]IDWJAIQW NEUTROPHIL4.0 X10E9/LNormal1.5-6.6Detwiler Memorial HospitalComment on above:Performed By: #### CBCA, 76266-6, CMP #### [facility] ([id number]) [address] [place] [address] 81321 #### HA1C #### [facility] ([id number]) [address] [facility], [address] [place], [place] [address]Qsfdxkipo/100 WBC (Bld)0.6 %[facility] Comment on above:Performed By: #### CBCA, 39160-0, CMP #### [facility] ([id number]) [address] [place] [address] 73942 #### HA1C #### [facility] ([id number]) [address] [facility], [address] [place], [place] [address]Gszivxziufo (Bld) [#/Vol]0.2 10*3/uLNormal0.0-0.4Detwiler Memorial HospitalComment on above:Performed By: #### CBCA, 41944-4, CMP #### [facility] ([id number]) [address] [place] [address] 82152 #### ARUN #### [facility] ([id number]) [address], [address] [place], [place] [address]Ovnoocjwufr/100 WBC (Bld)2.3 %NormalProChristus Good [facility] – [facility] Comment on above:Performed By: #### CBCA, 35651-2, CMP #### [facility] ([id number]) [address] [place] [address] 67399 #### ARUN #### [facility] ([id number]) [address], [address] [place], [place] [address]Zioynaubzsr distribution width (RBC) [Ratio]15.1 %High11.5-15.0 [facility] Memorial HospitalComment on above:Performed By: #### CBCBoni, 05824-3, CMP #### [facility] ([id number]) [address] [place] [address] 14356 #### ARUN #### [facility] ([id number]) [address], [address] [place], [place] [address]Bhoivjjunf (Bld) [Volume fraction]32.9 %Dsv26-94JagBmrvzwChristus Good Shepherd Medical Center – MarshallComment on above:Performed By: #### CBCA, 35278-0, CMP #### [facility] ([id number]) [address] [place] [address] 35792 #### HA1C #### [facility] ([id number]) [address], [address] [place], [place] [address]Oyvitdcfsw (Bld) [Mass/Vol]11.4 g/dLLow11.7-15.5ProMedica Bellflower HospitalComment on above:Performed By: #### CBCA, 41163-3, CMP #### [facility] ([id number]) [address] [place] [address] 75626 #### HA1C #### [facility] ([id number]) [address], [address] [place], [place] [address]Eqxbpnofefm (Bld) [#/Vol]2.4 10*3/uLNormal1.0-3.5PAshtabula County Medical CenterComment on above:Performed By: #### CBCA, 02606-8, CMP #### [facility] ([id number]) [address] [place] [address] 07027 #### HA1C #### [facility] ([id number]) [address], [address] [place], [place] [address]Mantxgycxiv/100 WBC (Bld)33.9 %NormalDetwiler Memorial Hospital Comment on above:Performed By: #### CBCA, 96701-4, CMP #### [facility] ([id number]) [address] [place] [address] 85799 #### HA1C #### [facility] ([id number]) [address], [address] [place], [place] [address]YME (RBC) [Entitic mass]29.2 eqGfenul09-28RaoFineujChristus Good Shepherd Medical Center – MarshallComment on above:Performed By: #### CBCA, 08998-1, CMP #### [facility] ([id number]) [address] [place] [address] 63676 #### HA1C #### [facility] ([id number]) [address], [address] [place], [place] [address]TBAQ (RBC) [Mass/Vol]34.7 g/xXHtjnzz40-36FwdVavuloChristus Good Shepherd Medical Center – MarshallComment on above:Performed By: #### CBCBoni, 89546-2, CMP #### [facility] ([id number]) [address] [place] [address] 44531 #### HA1C #### [facility] ([id number]) [address], [address] [place], [place] [address]OAU (RBC) [Entitic vol]84 jBYfbdvm15-242XvwZnebvd Fremont HospitalComment on above:Performed By: #### CBCBoni, 05204-6, CMP #### [facility] ([id number]) [address] [place] [address] 31708 #### HALulu #### [facility] ([id number]) [address], [address] [place], [place] [address]Xwodxpprm (Bld) [#/Vol]0.4 10*3/uLNormal0-0.9Detwiler Memorial HospitalComment on above:Performed By: #### CBCBoni, 45237-1, CMP #### [facility] ([id number]) [address] [place] [address] 80145 #### HALulu #### [facility] ([id number]) [address], [address] [place], [place] [address]Qxcuapjbx/100 WBC (Bld)6.2 %NormalDetwiler Memorial Hospital Comment on above:Performed By: #### CBCA, 65218-4, CMP #### [facility] ([id number]) [address] [place] [address] 37728 #### HA1C #### [facility] ([id number]) [address], [address] [place], [place] [address]Fzgmmzclkbu/100 WBC (Bld)57.0 %NormalDetwiler Memorial Hospital Comment on above:Performed By: #### CBCA, 45361-2, CMP #### [facility] ([id number]) [address] [place] [address] 15161 #### HALulu #### [facility] ([id number]) [address] [place], [place] [address]Fnmryyxn mean volume (Bld) [Entitic vol]8.[address] fLNormal7-[address] Vincent Medical CenterComment on above:Performed By: #### MAYA, 71772-1, CMP #### [facility] ([id number]) [address] [place] [address] 51998 #### ARUN #### [facility] ([id number]) [address] [facility] [place], [place] [address]Ddlweiehv (Bld) [#/Vol]336 10*3/gSJslbia026-645PquIhaphs [facility]remont HospitalComment on above:Performed By: #### MAYA, 22575-3, CMP #### [facility] ([id number]) [address] [place] [address] 00709 #### ARUN #### [facility] ([id number]) [address] [facility] [place], [place] [address]WOB COUNT3.91 X10E12/LNormal3.80-5.20[facility] Comment on above:Performed By: #### MAYA, 15601-1, CMP #### [facility] ([id number]) [address] [place] [address] 28931 #### HALulu #### [facility] ([id number]) [address] [facility] [place], [place] [address]PWZ (Bld) [#/Vol]7.1 10*3/uLNormal4.0-11.0ProChristus Good Shepherd Medical Center – MarshallComment on above:Performed By: #### MAYA, 93418-7, CMP #### [facility] ([id number]) [address] [place] [address] 17351 #### HALulu #### [facility] ([id number]) [address] [facility] [place], [place] [address]OEJMAZZWYPTTU METABOLIC PANELon 20-04-7965Wotfiul [Mass/Vol]3.6 g/dLNormal3.2-5.3PAshtabula County Medical CenterComment on above:Performed By: #### MAYA 64402-2, CMP #### [facility] ([id number]) [address] [place] [address] 86811 #### ARUN #### [facility] ([id number]) [address], [address] [place], [place] [address]IYK [Catalytic activity/Vol]87 U/ZSxiftg69-284BpqQtclrwChristus Good Shepherd Medical Center – MarshallComment on above:Performed By: #### MAYA 26429-7, CMP #### [facility] ([id number]) [address] [place] [address] 82157 #### ARUN #### [facility] ([id number]) [address], [address] [place], [place] [address]XDH [Catalytic activity/Vol]19 U/LNormal0-31PAshtabula County Medical CenterComment on above:Performed By: #### MAYA 58153-9, CMP #### [facility] ([id number]) [address] [place] [address] 36613 #### HA1C #### [facility] ([id number]) [address] [place], [place] [address]Imdsh gap [Moles/Vol]10 mmol/LNormal5-15ProChrist[facility] Shepherd Medical Center – MarshallComment on above:Performed By: #### MAYA, 86868-9, CMP #### [facility] ([id number]) [address] [place] [address] 00505 #### HA1C #### [facility] ([id number]) [address] [facility] [place], [place] [address]VZY [Catalytic activity/Vol]20 U/LNormal0-41ProChrist[facility] Center – MarshallComment on above:Performed By: #### MAYA, 73499-6, CMP #### [facility] ([id number]) [address] [place] [address] 27475 #### HALulu #### [facility] ([id number]) [address] [facility], [address] [place], [place] [address]Obwekhmue [Mass/Vol]0.3 mg/dLNormal0.3-1.2ProMedica St. Vincent Medical CenterComment on above:Performed By: #### MAYA 76023-9, CMP #### [facility] ([id number]) [address] [place] [address] 67794 #### ARUN #### [facility] ([id number]) [address] [facility], [address] [place], [place] [address]Vxuqspk [Mass/Vol]8.8 mg/dLNormal8.5-10.5ProMedica St. Vincent Medical CenterComment on above:Performed By: #### MAYA 61247-0, CMP #### [facility] ([id number]) [address] [place] [address] 86227 #### HA1C #### [facility] ([id number]) [address] [facility] [place], [place] [address]Hmuoqphz [Moles/Vol]103 mmol/OOcxdjq28-642TjkVqwbziChristus Good Shepherd Medical Center – MarshallComment on above:Performed By: #### MAYA, 34312-5, CMP #### [facility] ([id number]) [address] [place] [address] 10887 #### HA1C #### [facility] ([id number]) [address], [address] [place], [place] [address] [Moles/Vol]19 mmol/AQnt76-55AadBefqbcAshtabula County Medical Center Comment on above:Performed By: #### MAYA, 65621-1, CMP #### [facility] ([id number]) [address] [place] [address] 21297 #### HA1C #### [facility] ([id number]) [address] [facility] [place], [place] [address]Maymabivej [Mass/Vol]1.58 mg/dLHigh0.40-1.00Detwiler Memorial HospitalComment on above:Result Comment: METHOD TRACEABLE TO IDMS STANDARD Performed By: #### MAYA, 37689-8, CMP #### [facility] ([id number]) [address] [place] [address] 03582 #### HA1C #### [facility] ([id number]) [address] [facility] [place], [place] [address]WBW/1.73 sq M.predicted among non-blacks MDRD (S/P/Bld) [Vol rate/Area]39 mL/min/{1.73_m2}Low>59ProChristus Good Shepherd Medical Center – MarshallComment on above: Result Comment: Reported eGFR is based on the CKD-EPI 2021 equation that does not use a race coefficient.Performed By: #### MAYA, 10660-0, CMP #### [facility] ([id number]) [address] [place] [address] 29969 #### HA1C #### [facility] ([id number]) [address], [address] [place], [place] [address]Mnfjqzd [Mass/Vol]312 mg/ePSxfo53-29GsfBznhruDetwiler Memorial Hospital Comment on above:Performed By: #### MAYA, 61001-1, CMP #### [facility] ([id number]) [address] [place] [address] 01598 #### ARUN #### [facility] ([id number]) [address] [place], [place] [address]Ubcvklgab [Moles/Vol]4.7 mmol/LNormal3.5-5.0ProChrist[facility] Shepherd Medical Center – MarshallComment on above:Performed By: #### MAYA, 33631-2, CMP #### [facility] ([id number]) [address] [place] [address] 29475 #### ARUN #### [facility] ([id number]) [address], [address] [place], [place] [address]Whxexdc [Mass/Vol]6.7 g/dLNormal6.0-8.0ProChrist[facility] Medical Center – MarshallComment on above:Performed By: #### MAYA, 36347-7, CMP #### [facility] ([id number]) [address] [place] [address] 74903 #### ARUN #### [facility] ([id number]) [address], [address] [place], [place] [address]Jeqeta [Moles/Vol]132 mmol/FWtn753-607BmoEqsnxfChristus Good Shepherd Medical Center – [facility] Comment on above:Performed By: #### MAYA, 60305-0, CMP #### [facility] ([id number]) [address] [place] [address] 61815 #### ARUN #### [facility] ([id number]) [address] [place], [place] [address]Clcb nitrogen [Mass/Vol]29 mg/dLHigh5-23ProChrist[facility] Medical Center – MarshallComment on above:Performed By: #### MAYA, 24200-2, CMP #### [facility] ([id number]) [address] [place] [address] 93852 #### HA1C #### [facility] ([id number]) [address] [place] [address], [address] [place], [place] [address]Osovfdf Glucometer (BldC) [Mass/Vol]on 34-92-6214Vxxtllg [Mass/Vol]319 mg/fTUldy24-43YgvJctsbeDetwiler Memorial HospitalHeparin unfractionated Chromogenic method Qn (PPP)on 40-49-9357HGBC XA UFH0.29 IU/mLLow0.30-0.70 [facility] Memorial HospitalComment on above:Result Comment: Optimal time for testing is 6 hrs post dosage This test is specific for monitoring patients on UFH, and is not recommended for use with other Anti-Xa medications.Performed By: #### MAYA 44509-0, CMP #### [facility] ([id number]) [address] [place] [address] 85970 #### ARUN #### [facility] ([id number]) [address] [place] [address], [address] [place] [address]PETO XA UFH0.33 IU/mLNormal0.30-0.70[facility] Comment on above:Result Comment: Optimal time for testing is 6 hrs post dosage This test is specific for monitoring patients on UFH, and is not recommended for use with other Anti-Xa medications.Performed By: #### MAYA 97876-6, CMP #### [facility] ([id number]) [address] [place] [address] 47947 #### HA1C #### [facility] ([id number]) [address] [place] [address], [address] [place], [place] [address]ENHQSNUCSlx 64-27-1370Paiadursv [Mass/Vol]1.8 mg/dLNormal1.8-2.6 [facility]iler Memorial HospitalComment on above:Performed By: #### MAYA 11466-4, CMP #### [facility] ([id number]) [address] [place] [address] 17514 #### ARUN #### [facility] ([id number]) [address] [place] [address], [address] [place], [place] [address]OGM AND AUTO DIFFon 10-25-8309GHQCHAKY BASOPHIL0.0 X10E9/LNormal 0.0-0.2[facility]. Vincent Medical CenterComment on above:Performed By: #### MAYA, 17662-2, CMP #### [facility] ([id number]) [address] [place] [address] 73402 #### ARUN #### [facility] ([id number]) [address] [place] [address], [address] [place], [place] [address]IVSXDFOE NEUTROPHIL3.0 X10E9/LNormal1.5-6.6ProChrist[facility] Center – MarshallComment on above:Performed By: #### MAYA, 37124-3, CMP #### [facility] ([id number]) [address] [place] [address] #### ARUN #### [facility] ([id number]) [address] [place] [address], [address] [place], [place] [address]Ycylojbwj/100 WBC (Bld)0.4 %NormalProChristus Good Shepherd [facility] Center – Marshall Comment on above:Performed By: #### MAYA, 39467-0, CMP #### [facility] ([id number]) [address] [place] [address] #### ARUN #### [facility] ([id number]) [address] [place] [address], [address] [place], [place] [address]Ohofiwdrugt (Bld) [#/Vol]0.1 10*3/uLNormal0.0-0.4Detwiler [facility] HospitalComment on above:Performed By: #### MAYA, 86523-3, CMP #### [facility] ([id number]) [address] [place] [address] #### ARUN #### [facility] ([id number]) [address], [address] [place], [place] [address]Xpujlyvefie/100 WBC (Bld)2.6 %NormalProChristus Good Shepherd [facility] – [facility] Comment on above:Performed By: #### MAYA, 17747-5, CMP #### [facility] ([id number]) [address] [place] [address] #### ARUN #### [facility] ([id number]) [address] [facility] [place], [place] [address]Jjbzocwllut distribution width (RBC) [Ratio]14.7 %Normal 11.5-15.0Detwiler Memorial HospitalComment on above:Performed By: #### MAYA, 20559-8, CMP #### [facility] ([id number]) [address] [place] [address] #### ARUN #### [facility] [facility] ([id number]) [address] [facility], [address] [place], [place] [address]Zkhzwhyqlc (Bld) [Volume fraction]32.3 %Dac16-62AtoPejcpfChristus Good Shepherd Medical Center – MarshallComment on above:Performed By: #### MAYA, 35715-9, CMP #### [facility] ([id number]) [address] [place] [address] 42769 #### HALulu #### [facility] ([id number]) [address] [place], [place] [address]Hpsuzpfbcf (Bld) [Mass/Vol]11.1 g/dLLow11.7-15.5PAshtabula County Medical CenterComment on above:Performed By: #### CBCBoni, 46022-2, CMP #### [facility] ([id number]) [address] [place] [address] 03056 #### HA1C #### [facility] ([id number]) [address], [address] [place], [place] [address]Ugdzzroaabk (Bld) [#/Vol]1.8 10*3/uLNormal1.0-3.5ProMedica St. Vincent Medical CenterComment on above:Performed By: #### CBCBoni, 74095-8, CMP #### [facility] ([id number]) [address] [place] [address] 47752 #### ARUN #### [facility] ([id number]) [address] [facility], [address] [place], [place] [address]Cedzrosehww/100 WBC (Bld)34.0 %NormalDetwiler Memorial Hospital Comment on above:Performed By: #### CBCBoni, 16231-1, CMP #### [facility] ([id number]) [address] [place] [address] 11363 #### ARUN #### [facility] ([id number]) [address] [facility], [address] [place], [place] [address]PWX (RBC) [Entitic mass]29.1 qhXkelea13-70ConYexhkaChristus Good Shepherd Medical Center – MarshallComment on above:Performed By: #### CBCA, 81628-5, CMP #### [facility] ([id number]) [address] [place] [address] 11099 #### HA1C #### [facility] ([id number]) [address], [address] [place], [place] [address]ZERD (RBC) [Mass/Vol]34.3 g/pNTuulfv06-22LhsMiejzlChristus Good Shepherd Medical Center – MarshallComment on above:Performed By: #### CBCA, 69380-1, CMP #### [facility] ([id number]) [address] [place] [address] 45128 #### HALulu #### [facility] ([id number]) [address] [facility], [address] [place], [place] [address]CDQ (RBC) [Entitic vol]85 uQMqencd85-040TjvCgcipf [facility]remont HospitalComment on above:Performed By: #### MAYA, 90896-1, CMP #### [facility] ([id number]) [address] [place] [address] 58203 #### ARUN #### [facility] ([id number]) [address] [facility], [address] [place], [place] [address]Ujfqpdgdd (Bld) [#/Vol]0.3 10*3/uLNormal0-0.9ProChristus Good Shepherd Medical Center – MarshallComment on above:Performed By: #### MAYA, 76197-9, CMP #### [facility] ([id number]) [address] [place] [address] 49551 #### ARUN #### [facility] ([id number]) [address] [facility], [address] [place], [place] [address]Dwugmwxkp/100 WBC (Bld)5.9 %NormalDetwiler Memorial Hospital Comment on above:Performed By: #### MAYA, 28575-7, CMP #### [facility] ([id number]) [address] [place] [address] 16944 #### HALulu #### [facility] ([id number]) [address] [facility], [address] [place], [place] [address]Veinrwbptwm/100 WBC (Bld)57.1 %NormalDetwiler Memorial Hospital Comment on above:Performed By: #### CBCBoni, 87834-7, CMP #### [facility] ([id number]) [address] [place] [address] 11721 #### HA1C #### [facility] ([id number]) [address] [place] [address], [address] [place], [place] [address]Ttveitgn mean volume (Bld) [Entitic vol]8.3 fLNormal7-[address] Vincent Medical CenterComment on above:Performed By: #### MAYA, 40009-0, CMP #### [facility] ([id number]) [address] [place] [address] 07305 #### HA1C #### [facility] ([id number]) [address] [place] [address], [address] [place], [place] [address]Pxyybicvq (Bld) [#/Vol]321 10*3/tVZkqubx062-617UxlUliqnd [facility] HospitalComment on above:Performed By: #### MAYA, 87415-1, CMP #### [facility] ([id number]) [address] [place] [address] 91973 #### HA1C #### [facility] ([id number]) [address] [place] [address], [address] [place] [address]FVH COUNT3.81 X10E12/LNormal3.80-5.20[facility] Comment on above:Performed By: #### MAYA, 16394-4, CMP #### [facility] ([id number]) [address] [place] [address] 34867 #### HA1C #### [facility] ([id number]) [address] [place] [address], [address] [place], [place] [address]DMQ (Bld) [#/Vol]5.2 10*3/uLNormal4.0-11.0ProChristus Good Shepherd Medical Center – MarshallComment on above:Performed By: #### MAYA, 60820-5, CMP #### [facility] ([id number]) [address] [place] [address] 21983 #### HA1C #### [facility] ([id number]) [address] [place] [address], [address] [place], [place] [address]FWVSAEVZYGPGP METABOLIC PANELon 27-43-3866Jvsakdy [Mass/Vol]3.4 g/dLNormal3.2-5.3PAshtabula County Medical CenterComment on above:Performed By: #### MAYA 98350-0, CMP #### [facility] ([id number]) [address] [place] [address] 23044 #### ARUN #### [facility] ([id number]) [address] [place] [address], [address] [place], [place] [address]DLT [Catalytic activity/Vol]88 U/PLrdpyv94-803CdhAebjhgChristus Good Shepherd Medical Center – MarshallComment on above:Performed By: #### MAYA 38323-2, CMP #### [facility] ([id number]) [address] [place] [address] 27483 #### ARUN #### [facility] ([id number]) [address] [place] [address], [address] [place], [place] [address]XCW [Catalytic activity/Vol]19 U/LNormal0-31PAshtabula County Medical CenterComment on above:Performed By: #### MAYA, 10231-3, CMP #### [facility] ([id number]) [address] [place] [address] 71832 #### HA1C #### [facility] ([id number]) [address] [place] [address], [address] [place], [place] [address]Knswq gap [Moles/Vol]8 mmol/LNormal5-15ProChristus [facility] Shepherd Medical Center – MarshallComment on above:Performed By: #### MAYA, 68827-7, CMP #### [facility] ([id number]) [address] [place] [address] 91124 #### HA1C #### [facility] ([id number]) [address] [facility], [address] [place], [place] [address]NAO [Catalytic activity/Vol]17 U/LNormal0-41ProChristus Good Shepherd Medical Center – MarshallComment on above:Performed By: #### MAYA, 63375-5, CMP #### [facility] ([id number]) [address] [place] [address] 65642 #### HALulu #### [facility] ([id number]) Critical access hospital0 [facility], [address] [place], [place] [address]Iyhxdbhhq [Mass/Vol]0.5 mg/dLNormal0.3-1.2PAshtabula County Medical CenterComment on above:Performed By: #### MAYA 50386-3, CMP #### [facility] ([id number]) [address] [place] [address] 30259 #### ARUN #### [facility] ([id number]) [address] [place] [address], [address] [place], [place] [address]Chrdyeb [Mass/Vol]9.0 mg/dLNormal8.5-10.5PAshtabula County Medical CenterComment on above:Performed By: #### MAYA, 94788-4, CMP #### [facility] ([id number]) [address] [place] [address] 99880 #### HALulu #### [facility] ([id number]) [address] [place] [address], [address] [place], [place] [address]Kuziczeq [Moles/Vol]104 mmol/BMngwvm07-513BzsOwxrvsChristus Good Shepherd Medical Center – MarshallComment on above:Performed By: #### MAYA, 83181-1, CMP #### [facility] ([id number]) [address] [place] [address] 94392 #### HA1C #### [facility] ([id number]) [address], [address] [place], [place] [address]DA0 [Moles/Vol]20 mmol/LFvp80-20OtjJkfagpAshtabula County Medical Center Comment on above:Performed By: #### MAYA, 22536-6, CMP #### [facility] ([id number]) [address] [place] [address] 00296 #### HA1C #### [facility] ([id number]) [address] [facility], [address] [place], [place] [address]Ikkewdfuel [Mass/Vol]1.64 mg/dLHigh0.40-1.00Detwiler Memorial HospitalComment on above:Result Comment: METHOD TRACEABLE TO IDMS STANDARD Performed By: #### MAYA 09876-9, CMP #### [facility] ([id number]) [address] [place] [address] 25964 #### HA1C #### [facility] ([id number]) [address] [facility], [address] [place], [place] [address]NRQ/1.73 sq M.predicted among non-blacks MDRD (S/P/Bld) [Vol rate/Area]37 mL/min/{1.73_m2}Low>59ProChristus Good Shepherd Medical Center – MarshallComment on above: Result Comment: Reported eGFR is based on the CKD-EPI 1 equation that does not use a race coefficient.Performed By: #### MAYA, 60591-5, CMP #### [facility] ([id number]) [address] [place] [address] 86135 #### HA1C #### [facility] ([id number]) [address], [address] [place], [place] [address]Teoqyll [Mass/Vol]241 mg/fXGndi34-65DufNlzetfDetwiler Memorial Hospital Comment on above:Performed By: #### MAYA, 98592-6, CMP #### [facility] ([id number]) [address] [place] [address] 96444 #### HALulu #### [facility] ([id number]) [address] [facility], [address] [place], [place] [address]Dzghoqvpe [Moles/Vol]4.6 mmol/LNormal3.5-5.0ProChristus Good Shepherd Medical Center – MarshallComment on above:Performed By: #### MAYA, 52256-3, CMP #### [facility] ([id number]) [address] [place] [address] 14998 #### ARUN #### [facility] ([id number]) [address] [facility], [address] [place], [place] [address]Srdkueg [Mass/Vol]6.7 g/dLNormal6.0-8.0ProChristus Good Shepherd Medical Center – MarshallComment on above:Performed By: #### MAYA 86105-2, CMP #### [facility] ([id number]) [address] [place] [address] 35539 #### ARUN #### [facility] ([id number]) [address] [facility], [address] [place], [place] [address]Hxqblq [Moles/Vol]132 mmol/GSsu873-731GxuDjumtdChristus Good Shepherd Medical Center – Marshall Comment on above:Performed By: #### MAYA, 30463-1, CMP #### [facility] ([id number]) [address] [place] [address] 81438 #### HALulu #### [facility] ([id number]) [address] [facility], [address] [place], [place] [address]Hbwu nitrogen [Mass/Vol]33 mg/dLHigh5-23ProChristus Good Shepherd Medical Center – MarshallComment on above:Performed By: #### MAYA, 10502-8, CMP #### [facility] ([id number]) [address] [place] [address] 54419 #### HA1C #### [facility] ([id number]) [address] [facility], [address] [place], [place] [address]Qxjabdv Glucometer (BldC) [Mass/Vol]on 65-51-3791Fbqdseo [Mass/Vol]372 mg/vTAatl83-96XylTwecxaDetwiler Memorial HospitalGlucose [Mass/Vol]362 mg/uDAcvd38-92JpvHjvirpChristus Good Shepherd Medical Center – MarshallGlucose [Mass/Vol]376 mg/hCAjpi88-98 [facility]wiler Memorial HospitalGlucose [Mass/Vol]398 mg/hVMhyt05-39StdQwfnbqChristus Good Shepherd Medical Center – MarshallHEMOGLOBINon 97-62-8687Osrchzrcom (Bld) [Mass/Vol]11.6 g/dLLow11.7-15.5 Detwiler Memorial HospitalComment on above:Performed By: #### MAYA 41606-2, CMP #### [facility] ([id number]) [address] [place] [address] 91240 #### HA1C #### [facility] ([id number]) [address] [facility], [address] [place], [place] [address]Uhzgjrt unfractionated Chromogenic method Qn (PPP)on 08-05-2024 ANTI XA UFH0.44 IU/mLNormal0.30-0.70Detwiler Memorial HospitalComment on above: Result Comment: Optimal time for testing is 6 hrs post dosage This test is specific for monitoring patients on UFH, and is not recommended for use with other Anti-Xa medications.Performed By: #### MAYA, 70036-4, CMP #### [facility] ([id number]) [address] [place] [address] 09026 #### HA1C #### [facility] ([id number]) [address] [facility], [address] [place], [place] [address]DAIKYLPGYez 88-18-1904Lucpwkabh [Mass/Vol]2.1 mg/dLNormal1.8-2.[address] Vincent Medical CenterComment on above:Performed By: #### MAYA, 96023-6, CMP #### [facility] ([id number]) [address] [place] [address] 20668 #### HA1C #### [facility] ([id number]) [address], [address] [place], [place] [address]ZJ BRAIN WO CONTon 30-99-4565BP BRAIN WO CONTMR BRAIN WO CONT STUDY: MRI brain without [...] by Frederick Pelayo MD on 08/05/2024 10:[address] Vincent Medical CenterPLATELET COUNT AND MPVon 61-63-8081Wibjdgje mean volume (Bld) [Entitic vol]8.3 fLNormal7-12ProMedica St. Vincent Medical CenterComment on above:Performed By: #### MAYA, 39438-2, CMP #### [facility] ([id number]) [address] [place] [address] 93254 #### HA1C #### [facility] ([id number]) [address], [address] [place], [place] [address]Quhcqybfx (Bld) [#/Vol]335 10*3/wTBtpzjo565-236YkfKtcksp [facility] HospitalComment on above:Performed By: #### MAYA, 00532-4, CMP #### [facility] ([id number]) [address] [place] [address] 84774 #### HA1C #### [facility] ([id number]) [address] [facility], [address] [place], [place] [address]MLFVQOV AND INRon 01-90-2490ZJD Coag (PPP) [Relative time]1.0 {INR}Normal0.8-1.1PAshtabula County Medical CenterComment on above:Performed By: #### MAYA, 55435-8, CMP #### [facility] ([id number]) [address] [place] [address] 38353 #### HA1C #### [facility] ([id number]) [address] [facility], [address] [place], [place] [address]QD Coag (PPP) [Time]11.7 sNormal9.8-13.2PAshtabula County Medical CenterComment on above:Result Comment: NEW REFERENCE RANGEPerformed By: #### MAYA, 02280-9, CMP #### [facility] ([id number]) [address] [place] [address] 42019 #### HA1C #### [facility] ([id number]) [address] [facility], [address] [place], [place] [address]mTWM Coag (PPP) [Time]on 75-75-6599kSCX Coag (Bld) [Time]81 s Jbgt25-56QtsYaxvesChristus Good Shepherd Medical Center – MarshallComment on above:Result Comment: NEW REFERENCE RANGEPerformed By: #### MAYA, 80995-6, CMP #### [facility] ([id number]) [address] [place] [address] 76071 #### HA1C #### [facility] ([id number]) [address], [address] [place], [place] [address]JLP AND AUTO DIFFon 26-07-4843TWQOFHRE BASOPHIL0.0 X10E9/LNormal 0.0-0.2ProMedica St. Vincent Medical CenterComment on above:Performed By: #### CBCA, CMP, 09218-7 ####[facility] ([id number])[address] [place] [address] 66417#### 19704-9, 2088-11 ####[facility] ([id number])[address] [facility], [address] [place] [address]VENJJRZA NEUTROPHIL2.8 X10E9/LNormal1.5-6.6ProChristus [facility] Shepherd Medical Center – MarshallComment on above:Performed By: #### CBCA, CMP, ####[facility] ([id number])[address] [place], [place] [address]#### 84083-8, 2088-11 ####[facility] ([id number])[address] [facility], [address] [place] [address]Daatqucgr/100 WBC (Bld)0.4 %NormalProChristus Good Shepherd Medical Center – MarshallComment on above:Performed By: #### CBCA, CMP, ####[facility] ([id number])[address] [place] [address] 10451#### 24259-5, 2088-11 ####[facility] ([id number])[address] [facility], [address] [place] [address]Uzemoyuorfu (Bld) [#/Vol]0.2 10*3/uLNormal0.0-0.4ProChristus [facility] Shepherd Medical Center – MarshallComment on above: Performed By: #### CBCA, CMP, ####[facility] ([id number])[address] [place] [address]#### 23385-0, 2088-11 ####[facility] ([id number])[address] [place] [address], [address] [place] [address]Gxuldhulvpu/100 WBC (Bld)2.8 %NormalProChristus Good Shepherd Medical Center – MarshallComment on above:Performed By: #### CBCBoni CMP, 29899-2 ####[facility] ([id number])[address] [place] [address] 77602#### 54893-7, 2088-11 ####[facility] ([id number])[address] [place] [address], [address] [place] [address]Ekrlpxtbldo distribution width (RBC) [Ratio] 15.1 %High11.5-15.0ProChristus Good Shepherd Medical Center – MarshallComment on above:Performed By: #### GERMANIA TREJO, ####[facility] ([id number])[address] [place] [address] 74816#### 64960-8, 2088-11 ####[facility] ([id number])[address] [place] [address], [address] [place] [address]Simojwzhva (Bld) [Volume fraction]33.6 %Bbo98-25WrkBbtdpcChristus Good Shepherd Medical Center – MarshallComment on above: Performed By: #### CBCA, CMP, ####[facility] ([id number])[address] [place] [address] 60894#### 89726-4, 2088-11 ####[facility] ([id number])[address] [place] [address], [address] [place] [address]Jhgfdtfkbt (Bld) [Mass/Vol]11.3 g/dLLow11.7-15.5ProMedica St. Vincent Medical CenterComment on above:Performed By: #### CBCA, CMP, ####[facility] ([id number])[address] [place] [address] 13968#### 15473-7, 2088-11 ####[facility] ([id number])[address], [address] [place] [address]Vemhwhkndip (Bld) [#/Vol] 2.3 10*3/uLNormal1.0-3.5ProMedica St. Vincent Medical CenterComment on above:Performed By: #### CBCA, CMP, ####[facility] ([id number])[address] [place] [address] 85121#### 61708-8, 2088-11 ####[facility] ([id number])[address], [address] [place] [address] 20010 Lymphocytes/100 WBC (Bld)41.0 %NormalProMedica St. Vincent Medical CenterComment on above: Performed By: #### CBCA, CMP, ####[facility] ([id number])[address] [place] [address] 14734#### 52268-7, 2088-11 ####[facility] ([id number])[address], [address] [place] [address] 26738KEP (RBC) [Entitic mass]28.[address]vym64-93JtpPybzig [address] Vincent Medical CenterComment on above:Performed By: #### CBCA, CMP, ####[facility] ([id number])[address] [place] [address] 30096#### 95374-2, 2088-11 ####[facility] ([id number])[address] [facility], [address], [place] [address]ARFK (RBC) [Mass/Vol]33.6 g/pBVbcceh14-[address] Vincent Medical CenterComment on above:Performed By: #### CBCA, CMP, ####[facility] ([id number])[address] [place] [address] 59914#### 14179-1, 2088-11 ####[facility] ([id number])[address], [address], [place] [address]LMV (RBC) [Entitic vol]85 xPRbefte58-867AnsHpzpou [facility] HospitalComment on above:Performed By: #### CBCA, CMP, ####[facility] ([id number])[address] [place] [address] 10399#### 86415-2, 2088-11 ####[facility] ([id number])[address], [address], [place] [address]Tuaevqdbe (Bld) [#/Vol]0.4 10*3/uLNormal0-0.9ProChristus [facility] Shepherd Medical Center – MarshallComment on above: Performed By: #### CBCA, CMP, ####[facility] ([id number])[address] [place] [address] 27212#### 66281-6, 2088-11 ####[facility] ([id number])[address], [address], [place] [address]Cvnsgljds/100 WBC (Bld)6.6 %NormalDetwiler Memorial Hospital Comment on above:Performed By: #### CBCA, CMP, ####[facility] ([id number])[address] [place] [address] 12666#### 11904-8, 2088-11 ####[facility] ([id number])[address], [address], [place] [address]Bxwtaqymkxc/100 WBC (Bld)49.2 %NormalProChristus Good Shepherd Medical Center – MarshallComment on above:Performed By: #### CBCA, CMP, 19182-4 ####[facility] ([id number])[address] [place] [address] 27153#### 93686-6, 2088-11 ####[facility] ([id number])[address], [address], [place] [address]Ghfkywgy mean volume (Bld) [Entitic vol]8.3 fLNormal7-12ProMed[facility]. Vincent Medical CenterComment on above:Performed By: #### CBCA, CMP, ####[facility] ([id number])[address] [place] [address] 25374#### 00605-8, 2088-11 ####[facility] ([id number])[address], [address] [place] [address]Cvyipatjm (Bld) [#/Vol] 311 10*3/rSEvdkqg788-572NqkWbhosy St. Vincent Medical CenterComment on above:Performed By: #### CBCA, CMP, 89661-3 ####[facility] ([id number])[address] [place] [address]95#### 06906-2, 2088-11 ####[facility] ([id number])[address], [address] [place] [address]FSV COUNT3.97 X10E12/LNormal3.80-5.20Pro[facility] – MarshallComment on above: Performed By: #### CBCA, CMP, 42812-4 ####[facility] ([id number])[address] [place] [address] 07899#### 39538-3, 2088-11 ####[facility] ([id number])[address], [address], [place] [address]FIR (Bld) [#/Vol]5.7 10*3/uLNormal4.0-11.0[facility] – MarshallComment on above:Performed By: #### GERMANIA TREJO, 84319-4 ####[facility] ([id number])[address] [place] [address]3571#### 98828-1, 2088-11 ####[facility] ([id number])[address] [facility], [address], [place] [address]MDVCJHSYBSZTH METABOLIC PANELon 08-04-2024 Albumin [Mass/Vol]3.5 g/dLNormal3.2-5.3Pro[facility] St[facility] Vincent Medical CenterComment on above:Performed By: #### GERMANIA TREJO, ####[facility] ([id number])[address] [place] [address] 70691#### 76084-6, 2088-11 ####[facility] ([id number])[address] [facility], [address], [place] [address]PQZ [Catalytic activity/Vol]85 U/FTtaeln32-385BurBkfwwnChristus Good Shepherd Medical Center – MarshallComment on above:Performed By: #### GERMANIA TREJO, ####[facility] ([id number])[address] [place] [address]58#### 82663-5, 2088-11 ####[facility] ([id number])[address] [facility], [address] [place] [address]GRY [Catalytic activity/Vol]15 U/LNormal0-31PAshtabula County Medical CenterComment on above: Performed By: #### MAYA CMP, ####[facility] ([id number])[address] [place] [address]80#### 97972-9, 2088-11 ####[facility] ([id number])[address] [facility], [address] [place] [address]Uloth gap [Moles/Vol]9 mmol/LNormal5-15ProMedica St. Vincent Medical CenterComment on above:Performed By: #### GERMANIA TREJO, ####[facility] ([id number])[address] [place] [address] 50872#### 67122-8, 2088-11 ####[facility] ([id number])[address] [place] [address], [address] [place] [address]ENG [Catalytic activity/Vol]13 U/LNormal0-[address] Vincent Medical CenterComment on above:Performed By: #### GERMANIA TREJO, ####[facility] ([id number])[address] [place] [address] 23997#### 83225-7, 2088-11 ####[facility] ([id number])[address] [facility], [address] [address]Qxktjgtny [Mass/Vol]0.5 mg/dLNormal0.3-1.2ProMedica St. Vincent Medical CenterComment on above:Performed By: #### GERMANIA TREJO, ####[facility] ([id number])[address] [place] [address]73#### 52189-6, 2088-11 ####[facility] ([id number])[address] [place] [address], [address] [address]Yzeujjr [Mass/Vol]9.0 mg/dLNormal8.5-10.5ProMedSharp Memorial HospitalComment on above: Performed By: #### GERMANIA TREJO, ####[facility] ([id number])[address] [place] [address] 40203#### 83514-7, 2088-11 ####[facility] ([id number])[address] [facility], [address], [place] [address]Pvxvssht [Moles/Vol]103 mmol/ABebsnl42-670TxcPykejyChristus Good Shepherd Medical Center – MarshallComment on above:Performed By: #### GERMANIA TREJO, ####[facility] ([id number])[address] [place], [place] [address] 9[address]28#### 54716-3, 2088-11 ####[facility] ([id number])0 [facility] [address] [place] [address]13UZ7 [Moles/Vol]21 mmol/GTtp14-50GvcNqbcri St. Vincent Medical CenterComment on above:Performed By: #### GERMANIA TREJO, ####[facility] ([id number])[address] [place] [address] 05795#### 82402-6, 2088-11 ####[facility] ([id number])[address] [address]Wquklqaesu [Mass/Vol]1.85 mg/dLHigh0.40-1.00ProChrist[facility] – MarshallComment on above:Result Comment: METHOD TRACEABLE TO IDMS STANDARDPerformed By: #### GERMANIA TREJO, ####[facility] ([id number])[address] [place] [address] 96303#### 00439-9, 2088-11 ####[facility] ([id number])[address] [address]FGT/1.73 sq M.predicted among non-blacks MDRD (S/P/Bld) [Vol rate/Area]32 mL/min/{1.73_m2}Low>[address] Vincent Medical CenterComment on above:Result Comment: Reported eGFR is based on the CKD-EPI 2020 equation that does not use a race coefficient.Performed By: #### GERMANIA TREJO, ####[facility] ([id number])[address] [place] [address] 48268#### 73043-8, 2088-11 ####[facility] ([id number])0 [facility], [address], [place] [address]Ltfclav [Mass/Vol]185 mg/bMMzmy93-[address] Vincent Medical CenterComment on above:Performed By: #### GERMANIA TREJO, ####[facility] ([id number])[address] [place] [address] 70457#### 59088-7, 2088-11 ####[facility] ([id number])[address] [facility], [address], [place] [address]Jpygtrotz [Moles/Vol]4.1 mmol/LNormal3.5-5.0Pro[facility] – MarshallComment on above:Performed By: #### GERMANIA TREJO, ####[facility] ([id number])[address] [place] [address] 82159#### 98533-0, 2088-11 ####[facility] ([id number])[address] [facility], [address], [place] [address]Sikjbug [Mass/Vol]6.7 g/dLNormal6.0-8.0Pro[facility] – MarshallComment on above: Performed By: #### GERMANIA TREJO, ####[facility] ([id number])[address] [place] [address] 99891#### 04012-6, 2088-11 ####[facility] ([id number])[address] [facility], [address], [place] [address]Hhggtx [Moles/Vol]133 mmol/NCpa397-238LyiCouegkChristus Good Shepherd Medical Center – MarshallComment on above:Performed By: #### MAYA CMP, 04090-1 ####[facility] ([id number])[address] [place] [address] 01569#### 11758-9, 2088-11 ####[facility] ([id number])0 [facility], [address] [place] [address]Chiy nitrogen [Mass/Vol]39 mg/dLHigh5-[address] Vincent Medical CenterComment on above:Performed By: #### MAYA, [facility], 52714-5 ####[facility] ([id number])[address] [place] [address] 38424#### 73009-7, 2088-11 ####[facility] ([id number])0 [facility], [address] [place] [address]MNMZEP LDLon 08-04-2024 Cholesterol in LDL [Mass/Vol]105 mg/dLNormal<130[facility] Comment on above:Result Comment: LDL <100 mg/dL - Desirable LDL 130-159 mg/dL - Borderline High Risk LDL >160 mg/dL - High Risk Performed By: #### MAYA, [facility], 84369-3 ####[facility] ([id number])[address] [place] [address] 19366#### 93237-0, 2088-11 ####[facility] ([id number])0 [facility], [address] [place] [address]Vatjkrc Glucometer (BldC) [Mass/Vol]on 85-90-8544Upjyhzg [Mass/Vol]221 mg/pKPplc71-95UrnMqfuhkDetwiler Memorial HospitalGlucose [Mass/Vol]247 mg/eHRrdv32-51HtnAgofgzChristus Good Shepherd Medical Center – MarshallGlucose [Mass/Vol]253 mg/aTZecu19-82AzkWinhac Fremont HospitalLipid 1996 panelon 16-03-4931Akxlnsuuiwd [Mass/Vol]240 mg/tWYzmo897-877XsfAmmwclDetwiler Memorial Hospital Comment on above:Performed By: #### MAYA CMP, 12377-0 ####[facility] ([id number])[address] [place] [address] 20384#### 47775-4, 2088-11 ####[facility] ([id number])[address] [facility], [address], [place] [address]Xudnuqkpfpb in HDL [Mass/Vol]38 mg/dLLow>39Pro[facility] Center – MarshallComment on above:Result Comment: HDL <40 mg/dL - High Risk HDL > or = 40mg/dL- Desirable HDL >60 mg/dL - Negative Risk Performed By: #### MAYA CMP, ####[facility] ([id number])[address] [place] [address] 33364#### 68942-4, 2088-11 ####[facility] ([id number])[address] [facility], [address], [place] [address]Prywhtamdis in VLDL [Mass/Vol]156 mg/dLHigh0-30Pro[facility] – MarshallComment on above:Performed By: #### MAYA CMP, ####[facility] ([id number])[address] [place] [address] 09438#### 34650-0, 2088-11 ####[facility] ([id number])[address] [facility], [address] [place] [address] CHOLESTEROL:HDL6.3High1.0-5.0Pro[facility] Center – MarshallComment on above: Performed By: #### MAYA, CMP, 61385-0 ####[facility] ([id number])[address] [place] [address] 05959#### 23808-9, 2088-11 ####[facility] ([id number])[address], [place] [address]HKY (CALC)RESULT NOT REPORTED DUE TO HIGH TRIGLYCERIDENormal <130Pro[facility] – MarshallComment on above:Performed By: #### CBCA, CMP, 16287-4 ####[facility] ([id number])[address] [place] [address] 88774#### 60614-6, 2088-11 ####[facility] ([id number])0 [facility], [address], [place] [address]Qrrfgzecrfqd [Mass/Vol]782 mg/zHIxlv42-184VfuArwhhgChristus Good Shepherd Medical Center – MarshallComment on above:Performed By: #### CBCA, CMP, 42885-5 ####[facility] ([id number])[address] [place] [address] 84769#### 07060-3, 2088-11 ####[facility] ([id number])[address] [facility], [address] [place] [address]PGYQFAGOCrk 35-15-8948Jvvmcylya [Mass/Vol]2.3 mg/dLNormal1.8-2.6[facility] Comment on above:Performed By: #### CBCA, 33994-2, CMP #### [facility] ([id number]) [address] [place] [address] 38567 #### HA1C #### [facility] ([id number]) [address], [address] [place], [place] [address]Dzzxfaniw [Mass/Vol]1.6 mg/dLLow1.8-2.6Pro[facility] Center – MarshallComment on above:Performed By: #### CBCA, CMP, 36336-3 ####[facility] ([id number])[address] [place] [address] 31412#### 94557-4, 2089-1 ####[facility] ([id number])[address], [address], [place] [address]KIQ AND AUTO DIFFon 19-14-2030TTEAUFBS BASOPHIL0.1 X10E9/LNormal0.0-0.2ProMedica St. Vincent Medical CenterComment on above: Performed By: #### CBCBoni, 32423-5, CMP #### [facility] ([id number]) [address] [place] [address] 89685 #### HA1C #### [facility] ([id number]) [address] [facility], [address] [place], [place] [address]PJLWQMWZ NEUTROPHIL4.2 X10E9/LNormal1.5-6.6Pro[facility] – MarshallComment on above:Performed By: #### CBCBoni, 50983-2, CMP #### [facility] ([id number]) [address] [place] [address] 99318 #### HA1C #### [facility] ([id number]) [address] [facility], [address] [place], [place] [address]Bbaggzizo/100 WBC (Bld)0.7 %NormalDetwiler Memorial Hospital Comment on above:Performed By: #### CBCA, 58955-2, CMP #### [facility] ([id number]) [address] [place] [address] 20743 #### HA1C #### [facility] ([id number]) [address], [address] [place], [place] [address]Lbayiqqtbos (Bld) [#/Vol]0.1 10*3/uLNormal0.0-0.4Detwiler Memorial HospitalComment on above:Performed By: #### CBCA, 31211-3, CMP #### [facility] ([id number]) [address] [place] [address] 53280 #### ARUN #### [facility] ([id number]) [address], [address] [place], [place] [address]Faxgfgzgnjx/100 WBC (Bld)1.9 %NormalDetwiler Memorial Hospital Comment on above:Performed By: #### CBCA, 04331-8, CMP #### [facility] ([id number]) [address] [place] [address] 94693 #### ARUN #### [facility] ([id number]) [address], [address] [place], [place] [address]Fakvzfeyvhy distribution width (RBC) [Ratio]15.1 %High11.5-15.0 [facility] Memorial HospitalComment on above:Performed By: #### CBCBoni, 98758-9, CMP #### [facility] ([id number]) [address] [place] [address] 80730 #### ARUN #### [facility] ([id number]) [address], [address] [place], [place] [address]Fsayfvsloj (Bld) [Volume fraction]35.2 %Dzduvq64-87QwhCdgtofChristus Good Shepherd Medical Center – MarshallComment on above:Performed By: #### CBCA, 43183-4, CMP #### [facility] ([id number]) [address] [place] [address] 92276 #### HA1C #### [facility] ([id number]) [address], [address] [place], [place] [address]Zgbkxxyzxj (Bld) [Mass/Vol]11.9 g/fDChhunu11.7-15.5PAshtabula County Medical CenterComment on above:Performed By: #### CBCA, 41446-2, CMP #### [facility] ([id number]) [address] [place] [address] 11947 #### HA1C #### [facility] ([id number]) [address], [address] [place], [place] [address]Zqlgyzedumd (Bld) [#/Vol]2.6 10*3/uLNormal1.0-3.5PAshtabula County Medical CenterComment on above:Performed By: #### CBCA, 60688-9, CMP #### [facility] ([id number]) [address] [place] [address] 19984 #### HA1C #### [facility] ([id number]) [address], [address] [place], [place] [address]Vxcqycwfqyu/100 WBC (Bld)34.7 %NormalDetwiler Memorial Hospital Comment on above:Performed By: #### CBCA, 66419-4, CMP #### [facility] ([id number]) [address] [place] [address] 93168 #### HA1C #### [facility] ([id number]) [address], [address] [place], [place] [address]YAZ (RBC) [Entitic mass]28.8 btEjyurk97-69DzaWlrddbChristus Good Shepherd Medical Center – MarshallComment on above:Performed By: #### CBCA, 51424-6, CMP #### [facility] ([id number]) [address] [place] [address] 95238 #### HA1C #### [facility] ([id number]) [address], [address] [place], [place] [address]TKFM (RBC) [Mass/Vol]33.8 g/kIPyuhox03-45YbnZcdrmzChristus Good Shepherd Medical Center – MarshallComment on above:Performed By: #### CBCA, 87142-7, CMP #### [facility] ([id number]) [address] [place] [address] 36382 #### HA1C #### [facility] ([id number]) [address], [address] [place], [place] [address]DWB (RBC) [Entitic vol]85 jTLjudod28-174WrrPjoeev [facility]remont HospitalComment on above:Performed By: #### CBCBoni, 13450-8, CMP #### [facility] ([id number]) [address] [place] [address] 79792 #### HA1C #### [facility] ([id number]) [address], [address] [place], [place] [address]Eonkuzkca (Bld) [#/Vol]0.5 10*3/uLNormal0-0.9[facility] Memorial HospitalComment on above:Performed By: #### CBCBoni, 91993-9, CMP #### [facility] ([id number]) [address] [place] [address] 69931 #### HA1C #### [facility] ([id number]) [address], [address] [place], [place] [address]Jhrcnnozr/100 WBC (Bld)6.3 %NormalDetwiler Memorial Hospital Comment on above:Performed By: #### CBCA, 42442-1, CMP #### [facility] ([id number]) [address] [place] [address] 66579 #### HA1C #### [facility] ([id number]) [address], [address] [place], [place] [address]Olgfmocgylr/100 WBC (Bld)56.4 %NormalDetwiler Memorial Hospital Comment on above:Performed By: #### CBCA, 78296-4, CMP #### [facility] ([id number]) [address] [place] [address] 67228 #### HALulu #### [facility] ([id number]) [address] [facility], [address] [place], [place] [address]Vkllzkon mean volume (Bld) [Entitic vol]8.4 fLNormal7-[address] Vincent Medical CenterComment on above:Performed By: #### MAYA, 52938-6, CMP #### [facility] ([id number]) [address] [place] [address] 63249 #### HALulu #### [facility] ([id number]) [address] [facility], [address] [place], [place] [address]Yowbkvuyk (Bld) [#/Vol]344 10*3/mICnsclj876-528SkcVvjdeg [facility] HospitalComment on above:Performed By: #### MAYA, 03051-7, CMP #### [facility] ([id number]) [address] [place] [address] 15630 #### ARUN #### [facility] ([id number]) [address] [facility], [address] [place], [place] [address]GCU COUNT4.13 X10E12/LNormal3.80-5.20[facility] Comment on above:Performed By: #### MAYA, 08453-1, CMP #### [facility] ([id number]) [address] [place] [address] 63337 #### HA1C #### [facility] ([id number]) [address] [facility], [address] [place], [place] [address]LTJ (Bld) [#/Vol]7.5 10*3/uLNormal4.0-11.0ProChrist[facility] Center – MarshallComment on above:Performed By: #### MAYA, 55938-9, CMP #### [facility] ([id number]) [address] [place] [address] 73070 #### ARUN #### [facility] ([id number]) [address] [place] [address]GNLCSTYMKAGAH METABOLIC PANELon 00-41-8567Atfqgpe [Mass/Vol]3.7 g/dLNormal3.2-5.3PAshtabula County Medical CenterComment on above:Performed By: #### MAYA 22777-5, CMP #### [facility] ([id number]) [address] [place] [address] 85395 #### ARUN #### [facility] ([id number]) [address] [facility], [address] [place] [address]NUC [Catalytic activity/Vol]96 U/PTicmpg74-732LfbKvhgfcChristus Good Shepherd Medical Center – MarshallComment on above:Performed By: #### MAYA 97316-0, CMP #### [facility] ([id number]) [address] [place] [address] 43959 #### ARUN #### [facility] ([id number]) [address], [address] [place] [address]YXR [Catalytic activity/Vol]17 U/LNormal0-31PAshtabula County Medical CenterComment on above:Performed By: #### MAYA, 58431-0, CMP #### [facility] ([id number]) [address] [place] [address] 13908 #### HALulu #### [facility] ([id number]) [address], [address] [place], [place] [address]Oqjxu gap [Moles/Vol]11 mmol/LNormal5-15ProChrist[facility] Center – MarshallComment on above:Performed By: #### MAYA, 98380-5, CMP #### [facility] ([id number]) [address] [place] [address] 46123 #### ARUN #### [facility] ([id number]) [address] [facility], [address] [place], [place] [address]XCW [Catalytic activity/Vol]14 U/LNormal0-41Pro[facility] – MarshallComment on above:Performed By: #### MAYA 20259-7, CMP #### [facility] ([id number]) [address] [place] [address] 71941 #### ARUN #### [facility] ([id number]) [address] [facility], [address] [place], [place] [address]Agkaravtt [Mass/Vol]0.6 mg/dLNormal0.3-1.2[facility] Vincent Medical CenterComment on above:Performed By: #### MAYA 20689-6, CMP #### [facility] ([id number]) [address] [place] [address] 01239 #### ARUN #### [facility] ([id number]) [address] [facility], [address] [place], [place] [address]Irberhd [Mass/Vol]9.1 mg/dLNormal8.5-10.5[facility] St[facility] Vincent Medical CenterComment on above:Performed By: #### MAYA 04943-0, CMP #### [facility] ([id number]) [address] [place] [address] 53300 #### HALulu #### [facility] ([id number]) [address] [facility], [address] [place], [place] [address]Bwwaxmfa [Moles/Vol]99 mmol/ZOnlbic03-622LryBbckfyChristus Good Shepherd Medical Center – MarshallComment on above:Performed By: #### MAYA 82994-7, CMP #### [facility] ([id number]) [address] [place] [address] 75059 #### HA1C #### [facility] ([id number]) [address], [address] [place], [place] [address]TO5 [Moles/Vol]20 mmol/VKnz11-22HotRzgornAshtabula County Medical Center Comment on above:Performed By: #### MAYA, 08193-1, CMP #### [facility] ([id number]) [address] [place] [address] 78430 #### HA1C #### [facility] ([id number]) [address] [place], [place] [address]Nudhuyztst [Mass/Vol]2.19 mg/dLHigh0.40-1.00ProChrist[facility] Center – MarshallComment on above:Result Comment: METHOD TRACEABLE TO IDMS STANDARD Performed By: #### MAYA, 98265-1, CMP #### [facility] ([id number]) [address] [place] [address] 76227 #### HA1C #### [facility] ([id number]) [address] [place], [place] [address]HIJ/1.73 sq M.predicted among non-blacks MDRD (S/P/Bld) [Vol rate/Area]26 mL/min/{1.73_m2}Low>59ProChrist[facility] Shepherd Medical Center – MarshallComment on above: Result Comment: Reported eGFR is based on the CKD-EPI 1 equation that does not use a race coefficient.Performed By: #### MAYA, 81284-1, CMP #### [facility] ([id number]) [address] [place] [address] 37045 #### HA1C #### [facility] ([id number]) [address] [place], [place] [address]Fmcdmdm [Mass/Vol]402 mg/dLCritically dnjw05-61YmwBcmxswChristus Good Shepherd Medical Center – MarshallComment on above:Performed By: #### MAYA, 54098-3, CMP #### [facility] ([id number]) [address] [place] [address] 58764 #### HA1C #### [facility] ([id number]) [address], [address] [place], [place] [address]Txouytiqw [Moles/Vol]4.4 mmol/LNormal3.5-5.0ProChrist[facility] Shepherd Medical Center – MarshallComment on above:Performed By: #### MAYA, 18262-3, CMP #### [facility] ([id number]) [address] [place] [address] 17882 #### HALulu #### [facility] ([id number]) [address] [place], [place] [address]Prlltmv [Mass/Vol]7.7 g/dLNormal6.0-8.0ProChrist[facility] Center – MarshallComment on above:Performed By: #### MAYA, 65785-8, CMP #### [facility] ([id number]) [address] [place] [address] 52937 #### HALulu #### [facility] ([id number]) [address], [address] [place], [place] [address]Kknkiy [Moles/Vol]130 mmol/EUuj100-499MrcLeltudChristus Good Shepherd Medical Center – Marshall Comment on above:Performed By: #### MAYA, 53292-6, CMP #### [facility] ([id number]) [address] [place] [address] 23749 #### HA1C #### [facility] ([id number]) [address] [place], [place] [address]Fcoo nitrogen [Mass/Vol]44 mg/dLHigh5-23ProChristus [facility] Shepherd Medical Center – MarshallComment on above:Performed By: #### MAYA, 92540-3, CMP #### [facility] ([id number]) [address] [facility], [place] [address] #### HA1C #### [facility] ([id number]) [address] [facility], [address] [place], [place] [address]NG BRAIN WO CONT STROKE ALERTon 48-66-4081OP BRAIN WO CONT STROKE ALERTCT BRAIN WO CONT STROKE ALERT CT HEAD [...] mass, mass-effect, or shift of midline structures. Thereare no abnormal extra-axial fluid collections. Normal topete matter-white matter differentiation. There are a few [...] by Fermin Contreras MD on 08/03/2024 5:07 [facility] CT[facility] CAROTIDon [id number] CTA CAROTIDCT CTA CAROTID Examination: CTA carotids Clinical History: Acute neurologic deficit, stroke suspected. Blurred vision, worst headache of life. Procedure: Multidetector CT angiogram performed through the cervical portion of the carotid arteries after intravenous injection of contrast material without complication, including source images andmaximum intensity projection 3-D images displayed and reviewed [...] origin is patent. There is calcified plaque alongthe common carotid artery without significant stenosis. There is densely calcified plaque at the proximal right internal carotid artery resulting in 60% stenosis by NASCET criteria. Thereafter the right internal carotid artery appears patent to the skull base. There is severe stenosis origin of theright external carotid artery. Left carotid system: There [...] left subclavian artery. There is extrinsic compression withmoderate stenosis involving the left vertebral artery at [...] osteophytes at the C4-C5 level. Finalized by Jenna Pack MD on 08/03/2024 5:34 [facility] CT[facility] HEADon [id number] CTA HEADCT CTA HEAD CTA HEAD HISTORY: Blurry vision, worst headache of life COMPARISON: 12/25/2021 TECHNIQUE: CT angiogram performed following intravenous administration of 100 mL Omnipaque 350. Coronal and sagittal and 3-D volume rendered maximum intensity projection images generated and reviewedunder concurrent physician supervision. The [place] Symptomatic Carotid Endarterectomy Trial(NASCET) method for calculating the degree of stenosis was utilized for stenosis measurements. Arter ial blood flow was measured to assist the [...] by Fermin Contreras MD on 08/03/2024 5:29 PMNormalDetwiler Memorial HospitalGlucose Glucometer (BldC) [Mass/Vol]on [id number] [Mass/Vol]227 mg/pDVaup65-75HujMwqutsChristus Good Shepherd Medical Center – MarshallGlucose [Mass/Vol]369 mg/zQGpre95-[address] [facility] Medical CenterHGB A1C (GLYCO-HGB)on 99-73-4102Suzowgz [Mass/Vol]226 mg/dLNormalDetwiler Memorial HospitalComment on above:Performed By: #### MAYA, 21997-7, CMP #### [facility] ([id number]) [address] [place] [address] #### HA1C #### [facility] ([id number]) [address] [place], [place] [address]EwN3u (Bld) [Mass fraction]9.5 %High4.4-5.6Detwiler Memorial HospitalComment on above:Result Comment: NOTE ADA Guidelines Result HgbA1c Normal : less than 5.7 % Prediabetes : 5.7 % to 6.4 % Diabetes : > 6.4 % Use with caution in patients with abnormal hemoglobin variants as the half-life of red blood cells and in vivo glycation rates are affected.Performed By: #### MAYA, 40376-5, CMP #### [facility] ([id number]) [address] [place] [address] #### HA1C #### [facility] ([id number]) [address] [place], [place] [address]RHGHWWW PROFILEon 20-64-5455Hblo T4 [Mass/Vol]0.81 ng/dLNormal 0.61-1.60ProChristus Good Shepherd Medical Center – MarshallComment on above:Performed By: #### 64149-5, THYR ####[facility] ([id number])[address] [place] [address]CMC9.32 uIU/mLNormal0.49-4.67Pro[facility] Comment on above:Performed By: #### 75556-6, THYR ####[facility] ([id number])[address] [place] [address]Nxjconik I.cardiac High sensitivity method [Mass/Vol]on HOUR TROP I, HIGH SENSITIVITY3 ng/LNormal<16Pro[facility] Center – MarshallComment on above:Performed By: #### 05274-1, THYR #### [facility] ([id number]) [address] [place] [address]CHCEHLIP I, HIGH SENSITIVITY4 ng/LNormal<16Pro[facility] Center – MarshallComment on above:Performed By: #### CBCA, 94389-0, CMP #### [facility] ([id number]) [address] [place] [address] #### HA1C #### [facility] ([id number]) [address] [place] [address], [address] [place], [place] [address]QBEDAFPJDExj 27-17-2588Lonfusiea Ql (U)NegativeNormalNEG ProMUSC Kenneth Norris Jr. Cancer HospitalComment on above:Performed By: #### UA ####[facility] ([id number])[address] [place] [address]AHFYT/HGBNegativeNormalNEGProChristus Good Shepherd Medical Center – MarshallComment on above: Performed By: #### UA ####[facility] ([id number])[address] [place] [address], [place] [address]Coqjw (U)YELLOWNormalYELLOWProChristus Good [facility] MarshallComment on above:Performed By: #### UA ####[facility] ([id number])[address] [place] [address], [facility] [place], [place] [address]Msrghaj Ql (U)500 mg/dLAbnormalNEGProChristus Good [facility] – MarshallComment on above:Performed By: #### UA ####[facility] ([id number])[address] [place] [address], [facility] [place], [place] [address]Amzwybz Ql (U)NegativeNormalNEGProBaylor Scott And [facility] [place] on above:Performed By: #### UA ####[facility] ([id number])[address] [place] [address], [facility], [place] [address]Pfqkptkxv esterase Test strip Ql (U)TraceAbnormalNEGProChristus Good [facility] – MarshallComment on above:Performed By: #### UA ####[facility] ([id number])[address] [place] [address], [place] [address]Sllsrml Ql (U)NegativeNormalNEG ProMUSC Kenneth Norris Jr. Cancer HospitalComment on above:Performed By: #### UA ####[facility] ([id number])[address] [place] [address], [facility], [place] [address]jV (U)6.0 [pH]Normal5.0-8.5PAshtabula County Medical CenterComment on above: Performed By: #### UA ####[facility] ([id number])[address] [place] [address], [place] [address]Oofuirk Ql (U)NegativeNormalNEGProChristus Good [facility] – MarshallComment on above:Performed By: #### UA ####[facility] ([id number])[address] [place] [address], [place] [address] R.B.CELLS1 /hpfNormal0-5PAshtabula County Medical CenterComment on above:Performed By: #### UA ####[facility] ([id number])[address] [place] [address], [place] [address]Rifyqdid gravity (U) [Rel density]1.052Vvjffn1.003-1.[address] Vincent Medical CenterComment on above:Performed By: #### UA ####[facility] ([id number])[address] [place] [address], [place] [address]IKOBBAGU EPITHELIUM3 /hpfNormal0-5PAshtabula County Medical CenterComment on above:Performed By: #### UA ####[facility] ([id number])[address] [place] [address] [place] [address]EAAYFWMIEVDEXZYxhpjaTILUSUhlWldefw Fremont HospitalComment on above:Performed By: #### UA ####[facility] ([id number])[address] [place] [address] [place] [address] Urobilinogen Qn (U)0.2 {Juanita'U}/dLNormal<1.1PAshtabula County Medical CenterComment on above:Performed By: #### UA ####[facility] ([id number])[address] [place] [address], [place] [address]I.B.CELLS4 /hpfNormal0-5PAshtabula County Medical CenterComment on above:Performed By: #### UA ####[facility] ([id number])[address] [place] [address] [place] [address]UZN MACROSCOPIC NURon 20-29-4035KYLLPWNKO NURNegativeNormalNEGProChristus Good [facility] – MarshallComment on above:Performed By: #### NUM #### [facility] ([id number]) [address] [place] [address]REYDC/HGB NURNegativeNormalNEGProChristus Good [facility] – MarshallComment on above:Performed By: #### NUM #### [facility] ([id number]) [address] [place] [address] [place] [address]DPZQWCZ EBT038 mg/dLAbCincinnati VA Medical Center Comment on above:Performed By: #### NUM #### [facility] ([id number]) [address] [place] [address] [place] [address]UZMRGNO NURNegativeNormalNEGDetwiler Memorial HospitalComment on above:Performed By: #### NUM #### [facility] ([id number]) [address] [place] [address] [place] [address]ZFNTTRUUQ ESTERASE NURSmallAbnomission hospital mcdowellNEGDetwiler Memorial HospitalComment on above:Performed By: #### NUM #### [facility] ([id number]) [address] [place] [address]XJYWKVT NURNegativeNormwiNEGDetwiler Memorial HospitalComment on above:Performed By: #### NUM #### [facility] ([id number]) [address] [place] [address] [place] [address]UW NUR5.0Jimvbl6.0-8.5PAshtabula County Medical CenterComment on above:Performed By: #### NUM #### [facility] ([id number]) [address] [place] [address] [place] [address]XFIBYHU NURNegativeNormalNEGDetwiler Memorial HospitalComment on above:Performed By: #### NUM #### [facility] ([id number]) [address] [place] [address], [place] [address]JQCAMLUT GRAVITY NUR1.117Fnawfl6.003-1.035ProChristus Good [facility] – MarshallComment on above:Performed By: #### NUM #### [facility] ([id number]) [address] [place] [address] [place] [address]NKLPUDVKIIPQ NUR0.2 eu/dLNormal<1.1PAshtabula County Medical Center Comment on above:Performed By: #### NUM #### [facility] ([id number]) [address] [place] [address], FIRST [place], [place] [address]PEA INTACTon 03-98-2925ZJT, Xwvekf20 pg/rWEgcljw38-93Bzq [facility] HospitalComment on above:Performed By: #### UMNATALEE, ERUR #### [facility] [address] [address] [address] Delmer ReaFERRITINon 73-09-8245Hakpkdwe [Mass/Vol]35.0 ng/mLNormal8.0-252.0 The [facility] HospitalComment on above:Performed By: #### LIPA, DLDL, CON, LIPID, T7, CMP, TSH #### [facility] [address] [place] [address] Dr. Delmer ReaHEMOGRAM AND PLATELon 20-19-5520Tsqwuzyoeq (Bld) [Volume fraction]35.5 %Critically low36.0-48.0The [facility] HospitalComment on above: Performed By: #### LIPA, DLDL, CON, LIPID, T7, CMP, TSH #### [facility] [address] [address] [address] Delmer ReaHemoglobin (Bld) [Mass/Vol]11.6 g/dLCritically low12.0-16.0The [facility] HospitalComment on above:Performed By: #### LIPA, DLDL, CON, LIPID, T7, CMP, TSH #### [facility] [address] [address] [address] Del[facility]aST[facility] (RBC) [Entitic mass]27.3 eaTaohtr93.7-34.0The [facility] HospitalComment on above:Performed By: #### LIPA, DLDL, CON, LIPID, T7, CMP, TSH #### [facility] [address] [place] [address] Dr. Delmer RaeHOSPITAL FOR SPECIAL SURGERY (RBC) [Mass/Vol]32.7 g/xBAyhdyz08.9-35.2The [facility] HospitalComment on above:Performed By: #### LIPA, DLDL, CON, LIPID, T7, CMP, TSH #### [facility] [address] [place] [address] Dr. Delmer Marcos (RBC) [Entitic vol]83.5 aBPexnod74.0-99.0The [facility] HospitalComment on above:Performed By: #### LIPA, DLDL, CON, LIPID, T7, CMP, TSH #### [facility] [address] [place] [address] Dr. Delmer ReaPLT273 103/yeUnhgfb633-794Gjp [facility] HospitalComment on above: Performed By: #### LIPA, DLDL, CON, LIPID, T7, CMP, TSH #### [facility] [address] [place] [address] Dr. Delmer ReaRBC4.25 106/ulNormal4.20-5.40The [facility] HospitalComment on above:Performed By: #### LIPA, DLDL, CON, LIPID, T7, CMP, TSH #### [facility] [address] [place] [address] Dr. Delmer ReaWBC5.5 103/ulNormal4.0-11.0The [facility] HospitalComment on above: Performed By: #### LIPA, DLDL, CON, LIPID, T7, CMP, TSH #### [facility] [address] [place] [address] Dr. Delmer Moseley AND TIBCon 03-10-2023% ILCAYMVYPA63.6 %NormalThe [facility] HospitalComment on above:Performed By: #### LIPA, DLDL, CON, LIPID, T7, CMP, TSH #### [facility] [address] [place] [address] Dr. Delmer Moseley [Mass/Vol]61.0 ug/kELwslfz91.0-170.0The [facility] Comment on above:Performed By: #### LIPA, DLDL, CON, LIPID, T7, CMP, TSH #### [facility] [address] [place] [address] Dr. Delmer WarrenC FTFHGC645.0 ug/rMQkroku634.0-450.0The [facility] Comment on above:Performed By: #### LIPA, DLDL, CON, LIPID, T7, CMP, TSH #### [facility] [address] [address] [address] Delmer ReaMAGNESIUMon 90-67-5862Lllsoihkj [Mass/Vol]1.7 mg/dLCritically low 1.8-2.4The [facility] HospitalComment on above:Performed By: #### LIPA, DLDL, CON, LIPID, T7, CMP, TSH #### [facility] [address] [place] [address] Dr. Delmer ReaPHOSPHORUSon 36-74-0322Ilcjatimj [Mass/Vol]4.9 mg/dLCritically high2.6-4.7The [facility] HospitalComment on above:Performed By: #### LIPA, DLDL, CON, LIPID, T7, CMP, TSH #### [facility] [address] [place] [address] Dr. Delmer ReaPROF 14(COMP METB)on 69-71-8295Hbuwviy [Mass/Vol]3.4 g/dLNormal 3.4-5.0The [facility] HospitalComment on above:Performed By: #### LIPA, DLDL, CON, LIPID, T7, CMP, TSH #### [facility] [address] [place] [address] Dr. Delmer ReaAlbumin/Globulin [Mass ratio]0.8 {ratio}NormalThe [facility] HospitalComment on above:Performed By: #### LIPA, DLDL, CON, LIPID, T7, CMP, TSH #### [facility] [address] [place] [address] Dr. Delmer Barreto [Catalytic activity/Vol]102 U/CDwmnln32-160Kar [facility] HospitalComment on above:Performed By: #### LIPA, DLDL, CON, LIPID, T7, CMP, TSH #### [facility] [address] [place] [address] Dr. Delmer Askew [Catalytic activity/Vol]28 U/DXzgpwu82-16Bsb [facility] HospitalComment on above:Performed By: #### LIPA, DLDL, CON, LIPID, T7, CMP, TSH #### [facility] [address] [place] [address] Dr. Delmer Randall gap [Moles/Vol]15.1 mmol/LNormalMercy Health Anderson Hospital Comment on above:Performed By: #### LIPA, DLDL, CON, LIPID, T7, CMP, TSH #### [facility] [address] [place] [address] Dr. Delmer ReaAST [Catalytic activity/Vol]16 U/WMqtlbu08-24JgrMercy Health Anderson HospitalComment on above:Performed By: #### LIPA, DLDL, CON, LIPID, T7, CMP, TSH #### [facility] [address] [place] [address] Dr. Delmer ReaBilirubin [Mass/Vol]0.5 mg/dLNormal0.2-1.0[facility] Comment on above:Performed By: #### LIPA, DLDL, CON, LIPID, T7, CMP, TSH #### [facility] [address] [place] [address] Dr. Delmer ReaCalcium [Mass/Vol]9.5 mg/dLNormal8.5-10.1[facility] Comment on above:Performed By: #### LIPA, DLDL, CON, LIPID, T7, CMP, TSH #### [facility] [address] [place] [address] Dr. Delmer ReaChloride [Moles/Vol]100 mmol/HFybqxx20-168LwwMercy Health Anderson Hospital Comment on above:Performed By: #### LIPA, DLDL, OCN, LIPID, T7, CMP, TSH #### [facility] [address] [place] [address] Dr. Delmer ReaCO2 [Moles/Vol]23.4 mmol/VCkdnlk17.0-32.0[facility] Comment on above:Performed By: #### LIPA, DLDL, CON, LIPID, T7, CMP, TSH #### [facility] [address] [address] [address] Delmer ReaCreatinine [Mass/Vol]1.86 mg/dLCritically high0.55-1.02The [facility] HospitalComment on above:Performed By: #### LIPA, DLDL, CON, LIPID, T7, CMP, TSH #### [facility] [address] [address] [address] Delmer PantojaGFR-AF YRBQMSPM27 mL/min/1.69n9Wokqcegcjx low>=60The [facility] HospitalComment on above:Performed By: #### LIPA, DLDL, CON, LIPID, T7, CMP, TSH #### [facility] [address] [address] [address] Delmer PantojaGFR-NON AF MICSIWHT84 mL/min/1.54f7Gcnlohytcr low>=60The [facility] HospitalComment on above:Performed By: #### LIPA, DLDL, CON, LIPID, T7, CMP, TSH #### [facility] [address] [place] [address] Dr. Delmer ReaGlobulin (S) [Mass/Vol]4.3 g/dLNormalThe [facility] HospitalComment on above:Performed By: #### LIPA, DLDL, CON, LIPID, T7, CMP, TSH #### [facility] [address] [place] [address] Dr. Delmer ReaGlucose [Mass/Vol]197 mg/dLCritically nubf81-483Pvo [facility] HospitalComment on above:Performed By: #### LIPA, DLDL, CON, LIPID, T7, CMP, TSH #### [facility] [address] [place] [address] Dr. Delmer ReaPotassium [Moles/Vol]4.5 mmol/LNormal3.5-5.1The [facility] Comment on above:Performed By: #### LIPA, DLDL, CON, LIPID, T7, CMP, TSH #### [facility] [address] [place] [address] Dr. Delmer ReaProtein [Mass/Vol]7.7 g/dLNormal6.4-8.2The [facility] Comment on above:Performed By: #### LIPA, DLDL, CON, LIPID, T7, CMP, TSH #### [facility] [address] [place] [address] Dr. Delmer ReaSodium [Moles/Vol]134 mmol/LCritically dlg112-883Kck [facility] HospitalComment on above:Performed By: #### LIPA, DLDL, CON, LIPID, T7, CMP, TSH #### [facility] [address] [address] [address] Delmer ReaUrea nitrogen [Mass/Vol]40.0 mg/dLCritically high7.0-18.0The [facility] HospitalComment on above:Performed By: #### LIPA, DLDL, CON, LIPID, T7, CMP, TSH #### [facility] [address] [place] [address] Dr. Delmer Reynolds nitrogen/Creatinine [Mass ratio]21.5 mg/mgNormalThe [facility] HospitalComment on above:Performed By: #### LIPA, DLDL, CON, LIPID, T7, CMP, TSH #### [facility] [address] [place] [address] Dr. Delmer eRaURIC ACID SERUMon 53-13-4783Rbojs [Mass/Vol]7.1 mg/dLCritically high2.6-6.0The [facility] HospitalComment on above:Performed By: #### LIPA, DLDL, CON, LIPID, T7, CMP, TSH #### [facility] [address] [place] [address] Dr. Delmer Hair B12 AND FOLATEon 46-01-9888Wvtryearp (Vitamin B12) [Mass/Vol] 369.0 pg/xEDigpvc209.0-986.0The [facility] HospitalComment on above:Performed By: #### LIPA, DLDL, CON, LIPID, T7, CMP, TSH #### [facility] [address] [place] [address] Dr. Delmer ReaFOLATE20.30 ng/mLNormal8.60-58.90The [facility] HospitalComment on above:Performed By: #### LIPA, DLDL, CON, LIPID, T7, CMP, TSH #### [facility] [address] [address] [address] Delmer ReaVITAMIN D 25 OHon 10-52-6581ZZZ D 25-OH13.0 ng/mLNormalMercy Health Anderson HospitalCommymichigan medical center clare on above:Performed By: #### LIPA, DLDL, CON, LIPID, T7, CMP, TSH #### [facility] [address] [place] [address] Dr. Delmer Hair D [place] [facility] Medical CenterCommymichigan medical center clare on above: Result Comment: <20 ng/mL Vit D deficient 20 - <30 ng/mL Vit D insufficient 30 - 100 ng/mL Vit D sufficient >100 ng/mL Potential ToxicityPerformed By: #### LIPA, DLDL, CON, LIPID, T7, CMP, TSH #### [facility] [address] [place] [address] Dr. Delmer ReaPROF 14(COMP METB)on 00-31-8617Swozypv [Mass/Vol]3.4 g/dLNormal 3.4-5.0[facility] on above:Performed By: #### LIPA, DLDL, CON, LIPID, T7, CMP, TSH #### [facility] [address] [place] [address] Dr. Delmer ReaAlbumin/Globulin [Mass ratio]0.9 {ratio}NormalThe [facility] on above:Performed By: #### LIPA, DLDL, CON, LIPID, T7, CMP, TSH #### [facility] [address] [place] [address] Dr. Delmer Barreto [Catalytic activity/Vol]95 U/VHkimbn88-877Huv [facility] on above:Performed By: #### LIPA, DLDL, OCN, LIPID, T7, CMP, TSH #### [facility] [address] [place] [address] Dr. Delmer Askew [Catalytic activity/Vol]23 U/MJemtmp39-91Mlq [facility] on above:Performed By: #### LIPA, DLDL, CON, LIPID, T7, CMP, TSH #### [facility] [address] [address] [address] Delmer Randall gap [Moles/Vol]15.2 mmol/LNormalThe [facility] Comment on above:Performed By: #### LIPA, DLDL, CON, LIPID, T7, CMP, TSH #### [facility] [address] [address] [address] Delmer ReaAST [Catalytic activity/Vol]8 U/LCritically tat15-39MnpMercy Health Anderson HospitalComment on above:Performed By: #### LIPA, DLDL, CON, LIPID, T7, CMP, TSH #### [facility] [address] [place] [address] Dr. Delmer ReaBilirubin [Mass/Vol]0.3 mg/dLNormal0.2-1.0[facility] Comment on above:Performed By: #### LIPA, DLDL, CON, LIPID, T7, CMP, TSH #### [facility] [address] [place] [address] Dr. Delmer ReaCalcium [Mass/Vol]9.2 mg/dLNormal8.5-10.1[facility] Comment on above:Performed By: #### LIPA, DLDL, CON, LIPID, T7, CMP, TSH #### [facility] [address] [place] [address] Dr. Delmer ReaChloride [Moles/Vol]102 mmol/BGovnxd29-047Bvy [facility] Comment on above:Performed By: #### LIPA, DLDL, CON, LIPID, T7, CMP, TSH #### [facility] [address] [place] [address] Dr. Delmer ReaCO2 [Moles/Vol]22.6 mmol/EDmbwhq66.0-32.0[facility] Comment on above:Performed By: #### LIPA, DLDL, CON, LIPID, T7, CMP, TSH #### [facility] [address] [place] [address] Dr. Delmer ReaCreatinine [Mass/Vol]1.89 mg/dLCritically high0.55-1.02The [facility] HospitalComment on above:Performed By: #### LIPA, DLDL, CON, LIPID, T7, CMP, TSH #### [facility] [address] [place] [address] Dr. Delmer PantojaGFR-AF PWIEYIOG72 mL/min/1.57u4Vtkqtipvgw low>=60The [facility] HospitalComment on above:Performed By: #### LIPA, DLDL, CON, LIPID, T7, CMP, TSH #### [facility] [address] [address] [address] Delmer PantojaGFR-NON AF YHUXIYRQ65 mL/min/1.98v3Vzkeqhagyg low>=60The [facility] HospitalComment on above:Performed By: #### LIPA, DLDL, CON, LIPID, T7, CMP, TSH #### [facility] [address] [place] [address] Dr. Delmer ReaGlobulin (S) [Mass/Vol]3.9 g/dLNormalThe [facility] HospitalComment on above:Performed By: #### LIPA, DLDL, CON, LIPID, T7, CMP, TSH #### [facility] [address] [place] [address] Dr. Delmer ReaGlucose [Mass/Vol]257 mg/dLCritically kqev55-901Tku [facility] HospitalComment on above:Performed By: #### LIPA, DLDL, CON, LIPID, T7, CMP, TSH #### [facility] [address] [place] [address] Dr. Delmer ReaPotassium [Moles/Vol]4.8 mmol/LNormal3.5-5.1The [facility] Comment on above:Performed By: #### LIPA, DLDL, CON, LIPID, T7, CMP, TSH #### [facility] [address] [place] [address] Dr. Delmer ReaProtein [Mass/Vol]7.3 g/dLNormal6.4-8.2The [facility] Comment on above:Performed By: #### LIPA, DLDL, CON, LIPID, T7, CMP, TSH #### [facility] [address] [address] [address] Delmer ReaSodium [Moles/Vol]135 mmol/LCritically shm951-259[facility] Hospitalment on above:Performed By: #### LIPA, DLDL, CON, LIPID, T7, CMP, TSH #### [facility] [address] [address] [address] Delmer Reynolds nitrogen [Mass/Vol]39.0 mg/dLCritically high7.0-18.0The [facility] on above:Performed By: #### LIPA, DLDL, CON, LIPID, T7, CMP, TSH #### [facility] [address] [place] [address] Dr. Delmer Reynolds nitrogen/Creatinine [Mass ratio]20.6 mg/mgNormalThe [facility] HospitalComment on above:Performed By: #### LIPA, DLDL, CON, LIPID, T7, CMP, TSH #### [facility] [address] [place] [address] Dr. Delmer ReaPROF 14(COMP METB)on 43-42-8839Pceqjrx [Mass/Vol]3.5 g/dLNormal 3.4-5.0The [facility] on above:Performed By: #### SHEREEN, ERUR #### [facility] [address] [place] [address] Dr. Delmer ReaAlbumin/Globulin [Mass ratio]0.8 {ratio}NormalThe [facility] HospitalCommymichigan medical center clare on above:Performed By: #### SHEREEN, ERUR #### [facility] [address] [place] [address] Dr. Delmer GallegosP [Catalytic activity/Vol]113 U/IDsuodc71-746Gnh [facility] on above:Performed By: #### SHEREEN, ERUR #### [facility] [address] [place] [address] Dr. Delmer Askew [Catalytic activity/Vol]23 U/EEzheoi44-95Nsn [facility] HospitalComment on above:Performed By: #### SHEREEN, ERUR #### [facility] [address] [place] [address] Dr. Delmer ReaAnion gap [Moles/Vol]15.5 mmol/LNormalMercy Health [facility] Hospital Comment on above:Performed By: #### SHEREEN, ERUR #### [facility] [address] [place] [address] Dr. Delmer ReaAST [Catalytic activity/Vol]15 U/BQnygjb24-46Rxf [facility] HospitalComment on above:Performed By: #### SHEREEN, ERUR #### [facility] [address] [place] [address] Dr. Delmer ReaBilirubin [Mass/Vol]0.3 mg/dLNormal0.2-1.0[facility] Comment on above:Performed By: #### SHEREEN, ERUR #### [facility] [address] [place] [address] Dr. Delmer ReaCalcium [Mass/Vol]9.5 mg/dLNormal8.5-10.1[facility] Comment on above:Performed By: #### SHEREEN ERUR #### [facility] [address] [place] [address] Dr. Delmer ReaChloride [Moles/Vol]104 mmol/TCevicp15-407CbsMercy Health Anderson Hospital Comment on above:Performed By: #### SHEREEN, ERUR #### [facility] [address] [place] [address] Dr. Delmer ReaCO2 [Moles/Vol]25.1 mmol/IQrayxr81.0-32.0The [facility] Comment on above:Performed By: #### SHEREEN, ERUR #### [facility] [address] [place] [address] Dr. Delmer ReaCreatinine [Mass/Vol]1.29 mg/dLCritically high0.55-1.02The [facility] HospitalComment on above:Performed By: #### SHEREEN, ERUR #### [facility] [address] [place] [address] Dr. Delmer PantojaGFR-AF RIMSDDDF17 mL/min/1.12q2Zrycoybsig low>=60The [facility] HospitalComment on above:Performed By: #### SHEREEN, ERUR #### [facility] [address] [address] [address] Delmer PantojaGFR-NON AF RKIMBGUB48 mL/min/1.82f7Nkxcmzmlap low>=60The [facility] HospitalComment on above:Performed By: #### SHEREEN, ERUR #### [facility] [address] [address] [address] Delmer ReaGlobulin (S) [Mass/Vol]4.2 g/dLNormalThe [facility] HospitalComment on above:Performed By: #### SHEREEN, ERUR #### [facility] [address] [address] [address] Delmer ReaGlucose [Mass/Vol]135 mg/dLCritically snrx25-693Yiz [facility] HospitalComment on above:Performed By: #### SHEREEN, ERUR #### [facility] [facility] [address] [address] [address] Delmer ReaPotassium [Moles/Vol]4.6 mmol/LNormal3.5-5.1The [facility] Comment on above:Performed By: #### SHEREEN, ERUR #### [facility] [address] [address] [address] Delmer ReaProtein [Mass/Vol]7.7 g/dLNormal6.4-8.2The [facility] Comment on above:Performed By: #### SHEREEN, ERUR #### [facility] [address] [address] [address] Delmer ReaSodium [Moles/Vol]140 mmol/HScozsf841-393Gxu [facility] Comment on above:Performed By: #### SHEREEN, ERUR #### [facility] [address] [address] [address] Delmer ReaUrea nitrogen [Mass/Vol]28.0 mg/dLCritically high7.0-18.0The [facility] HospitalComment on above:Performed By: #### ANISHA REGANR #### [facility] [address] [place] [address] Dr. Delmer Reynolds nitrogen/Creatinine [Mass ratio]21.7 mg/mgNormalThe [facility] HospitalComment on above:Performed By: #### ANISHA REGANR #### [facility] [address] [place] [address] Dr. Delmer Novak PYLORI ANTIBODY IGGon 11-26-2022H. PYLORI IGG ABS4.50 Index ValueCritically high0.00-0.79The [facility] HospitalCommymichigan medical center clare on above:Result Comment: Negative <0.80 Equivocal 0.80 - 0.89 Positive >0.89Performed By: #### LIPA, DLDL, CON, LIPID, T7, CMP, TSH #### [facility] [address] [place] [address] Dr. Delmer ReaAMYLASEon [id number] [Catalytic activity/Vol]42 U/LNormal 25-115The [facility] HospitalComment on above:Performed By: #### LIPA, DLDL, CON, LIPID, T7, CMP, TSH #### [facility] [address] [place] [address] Dr. Delmer Vega AUTO DIFFon [id number] #0.0 103/ulNormal0.0-0.1The [facility] HospitalComment on above:Performed By: #### ANISHA REGANR #### [facility] [address] [place] [address] Dr. Delmer ReaBasophils/100 WBC (Bld)0.6 %Normal0.2-2.0[facility] Comment on above:Performed By: #### VERNA REGAN #### [facility] [address] [place] [address] Dr. Delmer Madsen #0.2 103/ulNormal0.0-0.7The [facility] HospitalCommymichigan medical center clare on above: Performed By: #### ANISHA REGANR #### [facility] [address] [place] [address] Dr. Delmer Pantojaosinophils/100 WBC (Bld)3.2 %Normal0.9-7.0The [facility] Comment on above:Performed By: #### ANISHA REGANR #### [facility] [address] [place] [address] Dr. Delmer Pantojarythrocyte distribution width (RBC) [Ratio]13.5 %Mctvhl20.0-15.0 The [facility] HospitalComment on above:Performed By: #### SHEREEN ERUR #### [facility] [address] [place] [address] Dr. Delmer ReaHematocrit (Bld) [Volume fraction]28.6 %Critically low36.0-48.0 The [facility] HospitalComment on above:Performed By: #### SHEREEN ERUR #### [facility] [address] [place] [address] Dr. Delmer ReaHemoglobin (Bld) [Mass/Vol]10.4 g/dLCritically low12.0-16.0[facility] HospitalComment on above:Performed By: #### ANISHA REGANR #### [facility] [address] [place] [address] Dr. Delmer Montemayor #0.06 10e3/ulCritically high0.00-0.03The [facility] Comment on above:Performed By: #### ANISHA REGANR #### [facility] [address] [place] [address] Dr. Delmer Montemayor %0.9 %Critically high0.0-0.5The [facility] HospitalComment on above:Performed By: #### ANISHA REGANR #### [facility] [address] [place] [address] Dr. Delmer Corral #2.2 103/ulNormal1.2-3.8The [facility] HospitalComment on above:Performed By: #### ANISHA REGANR #### [facility] [address] [place] [address] Dr. Yilan ChangLymphocytes/100 WBC (Bld)32.2 %Nurzsn97.5-60.0The [facility] HospitalComment on above:Performed By: #### SHEREEN, ERUR #### [facility] [address] [place] [address] Dr. Delmer Zaragoza DIFF REQNONormalThe [facility] HospitalComment on above: Performed By: #### SHEREEN, ERUR #### [facility] [address] [address] [address] Delmer Barnard (RBC) [Entitic mass]27.6 upShdzda26.7-34.0The [facility] HospitalComment on above:Performed By: #### SHEREEN, ERUR #### [facility] [address] [place] [address] Dr. Delmer Barnard (RBC) [Mass/Vol]36.4 g/dLCritically high29.9-35.2The [facility] HospitalComment on above:Performed By: #### SHEREEN, ERUR #### [facility] [address] [place] [address] Dr. Delmer Barnard (RBC) [Entitic vol]75.9 fLCritically low81.0-99.0The [facility] HospitalComment on above:Performed By: #### SHEREEN, ERUR #### [facility] [address] [place] [address] Dr. Delmer Mccormick #0.7 103/ulNormal0.3-0.8The [facility] HospitalComment on above:Performed By: #### SHEREEN, ERUR #### [facility] [address] [place] [address] Dr. Delmer Wallsocytes/100 WBC (Bld)9.4 %Normal1.7-12.0The [facility] Comment on above:Performed By: #### SHEREEN, ERUR #### [facility] [address] [place] [address] Dr. Delmer Figueredo #3.7 103/ulNormal1.4-6.5The [facility] HospitalComment on above:Performed By: #### SHEREEN ERUR #### [facility] [address] [address] [address] Delmer De Los Santosutrophils/100 WBC (Bld)53.7 %Uqzxvp98.0-75.0The [facility] HospitalComment on above:Performed By: #### SHEREEN ERUR #### [facility] [address] [place] [address] Dr. Delmer ReaPlatelet mean volume (Bld) [Entitic vol]9.4 fLCritically low 9.5-13.5The [facility] HospitalComment on above:Performed By: #### SHEREEN ERUR #### [facility] [address] [place] [address] Dr. Delmer ReaPLT313 103/zgRddmou027-952Jdz [facility] HospitalComment on above: Performed By: #### SHEREEN ERUR #### [facility] [address] [place] [address] Dr. Delmer ReaRBC3.77 106/ulCritically low4.20-5.40The [facility] HospitalComment on above:Performed By: #### SHEREEN ERUR #### [facility] [address] [place] [address] Dr. Delmer ReaWBC6.9 103/ulNormal4.0-11.0The [facility] HospitalCommymichigan medical center clare on above: Performed By: #### SHEREEN, ERUR #### [facility] [address] [place] [address] Dr. Dlemer ReaDIPAULINA LDLon 87-58-6934Mmtuggprage in LDL [Mass/Vol]102 mg/dL NormalThe [facility] HospitalCommymichigan medical center clare on above:Performed By: #### LIPA, DLDL, CON, LIPID, T7, CMP, TSH #### [facility] [address] [place] [address] Dr. Delmer ReaDLDL NORMALSEE BELOWNormalThChildren's Hospital of ColumbusComment on above: Result Comment: <100 mg/dl OPTIMAL 100 - 129 mg/dl NEAR OR ABOVE OPTIMAL 130 - 159 mg/dl BORDERLINE HIGH 160 - 189 mg/dl HIGH >190 mg/dl VERY HIGHPerformed By: #### LIPA, DLDL, CON, LIPID, T7, CMP, TSH #### [facility] [address] [address] [address] Delmer Hernandez THYROXINE INDEX T7on 34-48-3520DHX7.38Kkxlqo1.30-4.50The [facility] HospitalComment on above:Performed By: #### LIPA, DLDL, CON, LIPID, T7, CMP, TSH #### [facility] [address] [address] [address] Delmer ReaT3U35.0 %Crhxyc85.0-39.0The [facility] HospitalComment on above: Performed By: #### LIPA, DLDL, CON, LIPID, T7, CMP, TSH #### [facility] [address] [place] [address] Dr. Delmer ReaT4 [Mass/Vol]12.30 ug/dLNormal4.80-13.90The [facility] Comment on above:Performed By: #### LIPA, DLDL, CON, LIPID, T7, CMP, TSH #### [facility] [address] [place] [address] Dr. Delmer ReaGLYCOHEMOGLOBIN A1Con [id number] RECOMMENDATIONSEE BELOWNormal The [facility] HospitalComment on above:Result Comment: ADA RECOMMENDED LIMIT 4.0 - 6.0 ADA THERAPEUTIC TARGET < 7.0 ACTION SUGGESTED > 7.0Performed By: #### VERNA REGAN #### [facility] [address] [place] [address] Dr. Delmer ReaGlucose [Mass/Vol]180 mg/dLNormalThe [facility] HospitalComment on above:Performed By: #### ANISHA REGANR #### [facility] [address] [place] [address] Dr. Delmer ReaHbA1c (Bld) [Mass fraction]7.9 %Critically high4.5-6.2The [facility] HospitalComment on above:Performed By: #### SHEREEN ERUR #### [facility] [address] [place] [address] Dr. Delmer Aguilar [id number] [Mass/Vol]35.0 ug/dLCritically low 50.0-170.0[facility] on above:Performed By: #### LIPA, DLDL, CON, LIPID, T7, CMP, TSH #### [facility] [address] [place] [address] Dr. Delmer LunaASEon [id number] [Catalytic activity/Vol]155.0 U/LNormal 73.0-393.0The [facility] on above:Performed By: #### LIPA, DLDL, CON, LIPID, T7, CMP, TSH #### [facility] [address] [place] [address] Dr. Delmer LunaID PROFILEon [id number]-HDL RATIO NORMSEE [facility] CenterCommymichigan medical center clare on above:Result Comment: 3.3 - 4.4 LOW RISK 4.4 - 7.1 AVERAGE RISK 7.1 - 11.0 MODERATE RISK >11.0 HIGH RISKPerformed By: #### LIPA, DLDL, CON, LIPID, T7, CMP, TSH #### [facility] [address] [place] [address] Dr. Delmer ReaCholesterol [Mass/Vol]238 mg/dLCritically high<=200The [facility] on above:Performed By: #### LIPA, DLDL, CON, LIPID, T7, CMP, TSH #### [facility] [address] [place] [address] Dr. Delmer ReaCholesterol in HDL [Mass/Vol]39 mg/dLCritically svu65-23Buj [facility] on above:Performed By: #### LIPA, DLDL, CON, LIPID, T7, CMP, TSH #### [facility] [address] [place] [address] Dr. Delmer Stephenson.total/Cholesterol in HDL [Mass ratio]6.1 {ratio} NormalThe Samaritan Hospitalment on above:Performed By: #### LIPA, DLDL, CON, LIPID, T7, CMP, TSH #### [facility] [address] [place] [address] Dr. Delmer Low NORMAL> or = 60 mg/dl - LOW CARDIOVASCULAR RISK <40 mg/dl - HIGH CARDIOVASCULAR RISKHenry County Hospital on above:Performed By: #### LIPA, DLDL, CON, LIPID, T7, CMP, TSH #### [facility] [address] [place] [address] Dr. Delmer ReaLDL CALC NORMALSEE BELOWAccess Hospital DaytonComment on above:Result Comment: <100 mg/dl OPTIMAL 100 - 129 mg/dl NEAR OR ABOVE OPTIMAL 130 - 159 mg/dl BORDERLINE HIGH 160 - 189 mg/dl HIGH >190 mg/dl VERY HIGH Performed By: #### LIPA, DLDL, CON, LIPID, T7, CMP, TSH #### [facility] [address] [place] [address] Dr. Delmer ReaTriglyceride [Mass/Vol]579 mg/dLCritically high<=150The [facility] on above:Performed By: #### LIPA, DLDL, CON, LIPID, T7, CMP, TSH #### [facility] [address] [place] [address] Dr. Delmer ReaVLDL LNCQ825.8 mg/dLNoGerman Hospital on above: Performed By: #### LIPA, DLDL, CON, LIPID, T7, CMP, TSH #### [facility] [address] [place] [address] Dr. Delmer ReaPROF 14(COMP METB)on 95-86-1352Rxhsvyv [Mass/Vol]3.5 g/dLNormal 3.4-5.0The [facility] on above:Performed By: #### LIPA, DLDL, CON, LIPID, T7, CMP, TSH #### [facility] [address] [place] [address] Dr. Delmer ReaAlbumin/Globulin [Mass ratio]0.8 {ratio}NormalThe Samaritan Hospitalment on above:Performed By: #### LIPA, DLDL, CON, LIPID, T7, CMP, TSH #### [facility] [address] [place] [address] Dr. Delmer Barreto [Catalytic activity/Vol]110 U/MUgpuxl19-652Pvs [facility] HospitalComment on above:Performed By: #### LIPA, DLDL, CON, LIPID, T7, CMP, TSH #### [facility] [address] [place] [address] Dr. Delmer Askew [Catalytic activity/Vol]19 U/DKejtob07-51Bie [facility] on above:Performed By: #### LIPA, DLDL, CON, LIPID, T7, CMP, TSH #### [facility] [address] [place] [address] Dr. Delmer Randall gap [Moles/Vol]17.0 mmol/LNormalThe [facility] Comment on above:Performed By: #### LIPA, DLDL, CON, LIPID, T7, CMP, TSH #### [facility] [address] [place] [address] Dr. Delmer Mullins [Catalytic activity/Vol]13 U/LCritically zmj27-58Dgw [facility] on above:Performed By: #### LIPA, DLDL, CON, LIPID, T7, CMP, TSH #### [facility] [address] [place] [address] Dr. Delmer ReaBilirubin [Mass/Vol]0.3 mg/dLNormal0.2-1.0The [facility] Comment on above:Performed By: #### LIPA, DLDL, CON, LIPID, T7, CMP, TSH #### [facility] [address] [place] [address] Dr. Delmer ReaCalcium [Mass/Vol]9.6 mg/dLNormal8.5-10.1[facility] Comment on above:Performed By: #### LIPA, DLDL, CON, LIPID, T7, CMP, TSH #### [facility] [address] [place] [address] Dr. Delmer ReaChloride [Moles/Vol]104 mmol/VTslmor16-331Tba [facility] Comment on above:Performed By: #### LIPA, DLDL, CON, LIPID, T7, CMP, TSH #### [facility] [address] [place] [address] Dr. Delmer ReaCO2 [Moles/Vol]22.7 mmol/NVnqsla51.0-32.0The [facility] Comment on above:Performed By: #### LIPA, DLDL, CON, LIPID, T7, CMP, TSH #### [facility] [address] [place] [address] Dr. Delmer ReaCreatinine [Mass/Vol]2.15 mg/dLCritically high0.55-1.02The [facility] HospitalComment on above:Performed By: #### LIPA, DLDL, CON, LIPID, T7, CMP, TSH #### [facility] [address] [place] [address] Dr. Delmer PantojaGFR-AF SEZYUEMD33 mL/min/1.26d5Xgocluzbet low>=60The [facility] HospitalComment on above:Performed By: #### LIPA, DLDL, CON, LIPID, T7, CMP, TSH #### [facility] [address] [place] [address] Dr. Delmer PantojaGFR-NON AF GADGNUYC69 mL/min/1.26f4Hhfxrmvugw low>=60The [facility] HospitalComment on above:Performed By: #### LIPA, DLDL, CON, LIPID, T7, CMP, TSH #### [facility] [address] [place] [address] Dr. Delmer ReaGlobulin (S) [Mass/Vol]4.3 g/dLNormalThe [facility] HospitalComment on above:Performed By: #### LIPA, DLDL, CON, LIPID, T7, CMP, TSH #### [facility] [address] [place] [address] Dr. Delmer ReaGlucose [Mass/Vol]189 mg/dLCritically ympj15-345Ric [facility] HospitalComment on above:Performed By: #### LIPA, DLDL, CON, LIPID, T7, CMP, TSH #### [facility] [address] [place] [address] Dr. Delmer ReaPotassium [Moles/Vol]4.7 mmol/LNormal3.5-5.1The [facility] Comment on above:Performed By: #### LIPA, DLDL, CON, LIPID, T7, CMP, TSH #### [facility] [address] [place] [address] Dr. Delmer ReaProtein [Mass/Vol]7.8 g/dLNormal6.4-8.2The [facility] Comment on above:Performed By: #### LIPA, DLDL, CON, LIPID, T7, CMP, TSH #### [facility] [address] [place] [address] Dr. Delmer ReaSodium [Moles/Vol]139 mmol/MTglnor744-349Lpd [facility] Comment on above:Performed By: #### LIPA, DLDL, CON, LIPID, T7, CMP, TSH #### [facility] [address] [place] [address] Dr. Delmer ReaUrea nitrogen [Mass/Vol]48.0 mg/dLCritically high7.0-18.0[facility] HospitalComment on above:Performed By: #### LIPA, DLDL, CON, LIPID, T7, CMP, TSH #### [facility] [address] [place] [address] Dr. Delmer ReaUrea nitrogen/Creatinine [Mass ratio]22.3 mg/mgNormalThe [facility] HospitalComment on above:Performed By: #### LIPA, DLDL, CON, LIPID, T7, CMP, TSH #### [facility] [address] [place] [address] Dr. Delmer Jerez 54-17-2049NCS6.063 uIU/mLCritically low0.358-3.740[facility] HospitalComment on above:Performed By: #### LIPA, DLDL, CON, LIPID, T7, CMP, TSH #### [facility] [address] [place] [address] Dr. Delmer Hazel URINEon [id number] URINECulture Observations: LIGHT GROWTH OF MIXED GENITAL JOSE. NO POTENTIAL PATHOGENS SEEN.NormalThe [facility] HospitalComment on above:Performed By: #### LIPA, DLDL, CON, LIPID, T7, CMP, TSH #### [facility] [address] [address] [address] Delmer Granados MICROSCOPIC ONLYon [id number]VEKD SEENThe [facility] HospitalComment on above:Performed By: #### LIPA, DLDL, CON, LIPID, T7, CMP, TSH #### [facility] [address] [address] [address] Delmer Spears identified Cx Nom (U)CX ALREADY ORDEREDNoalThe [facility] HospitalCommymichigan medical center clare on above:Performed By: #### LIPA, DLDL, CON, LIPID, T7, CMP, TSH #### [facility] [address] [address] [address] Delmer Westfall SEENNormalNONE SEENMemorial Health System [facility] on above:Performed By: #### LIPA, DLDL, CON, LIPID, T7, CMP, TSH #### [facility] [address] [address] [address] Delmer ReaCrystals LM Nom (Urine sed)NONE SEENNormalNONE SEENMemorial Health System [facility] on above:Performed By: #### LIPA, DLDL, CON, LIPID, T7, CMP, TSH #### [facility] [address] [address] [address] Dowell ChangEpithelial cells LM Ql (Urine sed)FEWAbnormalNONE SEEN /RAREThe [facility] on above:Performed By: #### LIPA, DLDL, CON, LIPID, T7, CMP, TSH #### [facility] [address] [address] [address] Delmer McbrideCOUSDANITA SEENNormalNONE SEENMemorial Health System [facility] Hospital on above:Performed By: #### LIPA, DLDL, CON, LIPID, T7, CMP, TSH #### [facility] [address] [place], [place] [address] Dr. Delmer ReaKnwvnVKE3-68Girocsyh4-0Jlu [facility] on above:Performed By: #### LIPA, DLDL, CON, LIPID, T7, CMP, TSH #### [facility] [address] [address] [address] Delmer ReaWBC (U) [#/Vol]/uLAbnormalNONE SEENMercy Health Anderson HospitalCommymichigan medical center clare on above:Performed By: #### LIPA, DLDL, CON, LIPID, T7, CMP, TSH #### [facility] [address] [address] [address] Delmer ReaYEASTPRESENTAbnormalNONE SEENMemorial Health System [facility] on above:Performed By: #### LIPA, DLDL, CON, LIPID, T7, CMP, TSH #### [facility] [address] [place] [address] Dr. Delmer ReaNM KIDNEY W FLOW AND FUNCTION W PHARMACOLOGICAL INTERVENTIONon [id number] KIDNEY W FLOW AND FUNCTION W PHARMACOLOGICAL [...] Signed by: Akil Cummings MD 08/05/22 Final resultNormalMerManchester Memorial Hospital [id number] Coag (Bld) [Time] 23.4 lEgbckk85.5-30.5Tuscarawas HospitalComment on above:Result Comment: IV Heparin Therapy Range: 48.6-77.8Performed By: #### ANAX, IFX, PHEP, FKLLC, PE #### [facility] [address] [id number] Transfer Man: Shanique Carbone Coag (Bld) [Time]23.4 sBON SECOURS MERCY HEALTHComment on above: IV Heparin Therapy Range: 48.6-77.8 CBC with Auto Differentialon [id number] Eos #0.29[facility] HEALTHAbsolute Immature Granulocyte0.09[facility] HEALTHAbsolute Lymph # 2.26[facility] HEALTHAbsolute Hayes #0.65[facility] HEALTHBasophils (Bld) [#/Vol]0.04 10*3/uLBON SECOURS MERCY HEALTHBasophils/100 WBC (Bld)1 %0 - 2 %[facility] HEALTHEosinophils/100 WBC (Bld)4 %1 - 4 %[facility] HEALTHHematocrit (Bld) [Volume fraction]29.5 %Low36.3 - 47.1 %[facility] HEALTHHemoglobin (Bld) [Mass/Vol]10.1 g/dLLow11.9 - 15.1 g/dLBON SECOURS MERCY HEALTHImmature granulocytes/100 WBC (Bld)1 %Wncv1ZWKSENTARA HALIFAX REGIONAL HOSPITAL Interpretation and review of laboratory resultsAbnormalSENTARA [facility]IFAX [facility]ION[facility] Lymphocytes/100 WBC (Bld)27 %24 - 43 %[facility] CENTERH (RBC) [Entitic mass]29.3 pg25.2 - 33.5 pgCHESAPEAKE REGIONAL MEDICAL CENTERHC (RBC) [Mass/Vol]34.2 g/dL28.4 - 34.8 g/dLBON PROTESTANT HOSPITALV (RBC) [Entitic vol]85.5 fL82.6 - 102.9 fLSENTARA HALIFAX REGIONAL HOSPITALMonocytes/100 WBC (Bld)8 %3 - 12 %[facility]IONAL HOSPITALNRBC Automated0.00.0 per 100 WBCSENTARA HALIFAX REGIONAL HOSPITALPlatelet distribution width (Bld) [Ratio]13.4 %11.8 - 14.4 %[facility] Platelet mean volume (Bld) [Entitic vol]9.5 fL8.1 - 13.5 fLSENTARA HALIFAX REGIONAL HOSPITALPlatelets (Bld) [#/Vol]311 10*3/uLSENTARA HALIFAX REGIONAL HOSPITALRBC (Bld) [#/Vol]3.45 10*6/uLLow3.95 - 5.11 m/[facility] Community HospitalSegmented neutrophils/100 WBC (Bld)59 %36 - 65 %[facility] HALIF[facility] REGIONAL HOSPITALSegs Absolute5.00 [facility]IONAL HOSPITALWBC (Bld) [#/Vol]8.3 10*3/uLSENTARA VIRGINIA BEACH GENERAL HOSPITALCBC with Diffon [id number]. Basophil0.04 k/uLNormal 0.00-0.20Tuscarawas HospitalComment on above:Performed By: #### ANAX, IFX, PHEP, FKLLC, PE #### [facility] [address] [place], [place] [id number] Transfer Man: Simone Carbone.Imm.Granulocyte0.09 k/uLNormal0.00-0.30T[facility]carawas HospitalComment on above:Performed By: #### ANAX, IFX, PHEP, FKLLC, PE #### [address] [address] Transfer Man: Simone Carbone.Neutrophil (Seg)5.00 k/uLNormal1.50-8.10 [facility] HospitalComment on above:Performed By: #### ANAX, IFX, PHEP, FKLLC, PE #### [address] [address] Transfer Man: Bala Skelton MDBasophils/100 WBC (Bld)1 %Normal0-2MMarinHealth Medical CenterComment on above:Performed By: #### ANAX, IFX, PHEP, FKLLC, PE #### [place] [address] Transfer Man: Bala Skelton MDEosinophils (Bld) [#/Vol]0.29 10*3/uLNormal 0.00-0.44T[facility]carawas HospitalComment on above:Performed By: #### ANAX, IFX, PHEP, FKLLC, PE #### [address] [address] Transfer Man: Bala Skelton MDEosinophils/100 WBC (Bld)4 %Normal1-4Tuscarawas HospitalComment on above:Performed By: #### ANAX, IFX, PHEP, FKLLC, PE #### [address] [address] Transfer Man: Bala Skelton MDErythrocyte distribution width (RBC) [Ratio]13.4 %Bfvqox76.8-14.4Tuscarawas HospitalComment on above:Performed By: #### ANAX, IFX, PHEP, FKLLC, PE #### [address] [address] Transfer Man: Bala Skelton MDHematocrit (Bld) [Volume fraction]29.5 %Low 36.3-47.1MMarinHealth Medical CenterComment on above:Performed By: #### ANAX, IFX, PHEP, FKLLC, PE #### [address] [address] Transfer Man: Bala Skelton MDHemoglobin (Bld) [Mass/Vol]10.1 g/dLLow11.9-15.1 [facility] HospitalComment on above:Performed By: #### ANAX, IFX, PHEP, FKLLC, PE #### [address] [address] Transfer Man: Bala Skelton MDImmature granulocytes/100 WBC (Bld)1 %Gzpa7PlioiTuscarawas HospitalComment on above:Performed By: #### ANAX, IFX, PHEP, FKLLC, PE #### [address] [address] Transfer Man: Bala Skelton MDLymphocytes (Bld) [#/Vol]2.26 10*3/uLNormal 1.10-3.70Tuscarawas HospitalComment on above:Performed By: #### ANAX, IFX, PHEP, FKLLC, PE #### [address] [address] Transfer Man: Tay Carbonemphocytes/100 WBC (Bld)27 %Jftiwu72-03DefxwTuscarawas HospitalComment on above:Performed By: #### ANAX, IFX, PHEP, FKLLC, PE #### [address] [address] Transfer Man: NORTH CarboneCH (RBC) [Entitic mass]29.3 iuTkexkb98.2-33.5 [facility]as HospitalComment on above:Performed By: #### ANAX, IFX, PHEP, FKLLC, PE #### [place] [address] Transfer Man: NORTH CarboneCHC (RBC) [Mass/Vol]34.2 g/pAKkfvyp69.4-34.8 [facility]as HospitalComment on above:Performed By: #### ANAX, IFX, PHEP, FKLLC, PE #### [place] [address] Transfer Man: NORTH CarboneCV (RBC) [Entitic vol]85.5 gMGybkyi35.6-102.9 [facility] HospitalComment on above:Performed By: #### ANAX, IFX, PHEP, FKLLC, PE #### [place] [address] Transfer Man: NORTH Carboneonocytes (Bld) [#/Vol]0.65 10*3/uLNormal 0.10-1.20Tuscarawas HospitalComment on above:Performed By: #### ANAX, IFX, PHEP, FKLLC, PE #### [place] [address] Transfer Man: NORTH Carboneonocytes/100 WBC (Bld)8 %Normal3-12Tuscarawas HospitalComment on above:Performed By: #### ANAX, IFX, PHEP, FKLLC, PE #### [place] [address] Transfer Man: Bala Skelton MDNeutrophil (Seg)59 %Miibij58-63VlxtnTuscarawas HospitalComment on above:Performed By: #### ANAX, IFX, PHEP, FKLLC, PE #### [address] [place] [address] Transfer Man: SHIRLEY Carbone Automated0.0 per 100 WBCNormal0.0Tuscarawas HospitalComment on above:Performed By: #### ANAX, IFX, PHEP, FKLLC, PE #### [facility] [address] [place] [address] Transfer Man: Elie Carbone mean volume (Bld) [Entitic vol]9.5 fL Normal8.1-13.5Tuscarawas HospitalComment on above:Performed By: #### ANAX, IFX, PHEP, FKLLC, PE #### [facility] [address] [place] [address] Transfer Man: Emil Carbone (Bld) [#/Vol]311 10*3/vRLqkbzz524-287 [facility] HospitalComment on above:Performed By: #### ANAX, IFX, PHEP, FKLLC, PE #### [facility] [address] [place] [address] Transfer Man: LAWANDA Carbone (Bld) [#/Vol]3.45 10*6/uLLow3.95-5.11Tuscarawas HospitalComment on above:Performed By: #### ANAX, IFX, PHEP, FKLLC, PE #### [facility] [address] [place] [address] Transfer Man: ANTON Carbone (Bld) [#/Vol]8.3 10*3/uLNormal3.5-11.3MMarinHealth Medical CenterComment on above:Performed By: #### ANAX, IFX, PHEP, FKLLC, PE #### [facility] [address] [place] [address] Transfer Man: Bala Madoff, MDIR GUIDED NEPHROURETERAL CATH REMOVE/REPLACEon . Successful left nephroureteral stent exchange. Bishnu Shaikh MD - 07/26/2022 PROCEDURE: IR CHG NEPHROSTMY [...] detailed explanation of the procedure including risks. [place] protocol was observed. Sterile gowns, masks, hats and gloves utilized for maximal sterile barrier. The patient was placed in the prone position on the fluoroscopy table, and the existing left nephroureteral stent and flank were prepped and draped in sterile manner. The stent tubing was noted to be broken with the lumen exposed near the level of the skin. A cigarette filter inspector image demonstrated the distal loop approximating the [...] wire. Under fluoroscopic guidance, a new 8 Citizen [place] x 22 cm nephroureteral stent was advanced over the wire; the distal loop formed in the bladder, but the proximal loop did not form in the renal pelvis. Therefore, this catheter was removed over wire, and a new 8 Citizen [place] x 24 cm nephroureteral stent was advanced [...] IMPRESSION: 1. Successful left nephroureteral stent exchange. [facility] [employer] Work Phone: radiology Study observation (narrative)[facility] Work Phone: ir GUIDED NEPHROURETERAL CATH REMOVE/REPLACEOrdered By: Bishnu Alan on [id number] [employer] Work Phone: No Panel Informationon [id number] Glucose Fingerstickon 83-44-8246Ckkogdf [Mass/Vol]185 mg/vBEvxd79 - 105 mg/dLBON TRUMBULL REGIONAL MEDICAL CENTERInterpretation and review of laboratory results AbnormalBON [facility] 41-86-5163BVM Coag (PPP) [Relative time]0.9 {INR}[facility] HospitalComment on above:Result Comment: Therapeutic Range: Moderate Anticoagulant Intensity: INR = 2.0-3.0 High Anticoagulant Intensity: INR = 2.5-3.5Performed By: #### ANAX, IFX, PHEP, FKLLC, PE #### [employer] [address] [place] [address] [phone] Transfer Man: MADHAVI Carbone Coag (PPP) [Time]9.4 sNormal9.1-12.3[facility] Regional Medical CenterComment on above:Performed By: #### ANAX, IFX, PHEP, FKLLC, PE #### [employer] [address] [place] [address] [phone] Transfer Man: Rico Carboneime-INRon 45-88-5247XAN Coag (Bld) [Relative time]0.9 {INR}[facility]IF[facility] REGIONAL HOSPITALComment on above: Therapeutic Range: Moderate Anticoagulant Intensity: INR = 2.0-3.0 High Anticoagulant Intensity: INR = 2.5-3.5 PT Coag (PPP) [Time]9.4 sBON TRUMBULL REGIONAL MEDICAL CENTERCult, Bloodon [id number], BloodSpecimen Description .BLOOD Special Requests LEFT FOREARM 5ML Culture NO GROWTH 5 DAYS Report Status FINAL 07/25/2022NormalMerBarstow Community HospitalComment on above:Performed By: #### BC #### [facility] [address] [place] [address] [phone] Transfer Man: Abhi Carbone Bloodon [id number],BloodSpecimen Description .BLOOD Special Requests LT WRIST 2.5ML Culture NO GROWTH 5 DAYS Report Status FINAL 07/25/2022[facility] HospitalComment on above:Performed By: #### BC #### [email or web address] [address] [place] [address] Transfer Man: Abhi Carbone,BloodSpecimen Description .BLOOD Special Requests RT WRIST 2.5ML Culture NO GROWTH 5 DAYS Report Status FINAL 07/25/2022[facility] HospitalComment on above:Performed By: #### ANAX, IFX, PHEP, FKLLC, PE #### [facility] [email or web address] [address] [place] [address] Transfer Man: Abhi Carbone,BloodSpecimen Description .BLOOD Special Requests 2ML Culture NO GROWTH 5 DAYS Report Status FINAL 07/25/2022[facility] HospitalComment on above:Performed By: #### ANAX, IFX, PHEP, FKLLC, PE #### [facility] [email or web address] [address] [place] [address] Transfer Man: SUSANA Carbone ABDOMEN (KUB) (SINGLE AP VIEW)on [id number] ABDOMEN (KUB) (SINGLE AP VIEW)EXAMINATION: ONE SUPINE XRAY VIEW(S) OF THE ABDOMEN [...] Signed by: Bry Foreman MD 07/25/22 Final resultNormalTuscarawas HospitalLeft PCNU in place. There is questionable discontinuity of the retroperitoneal or body wall portion of the catheter. This may be artifactual related to bowel gas. Recommend repeat exam or CT. [facility] CONSOLIDATEDEXAMINATION: ONE SUPINE XRAY VIEW(S) OF THE ABDOMEN [...] of the catheter. No gross bony abnormality. [facility] SAVANNAHYoungBry MD - 07/25/2022 EXAMINATION: ONE SUPINE XRAY [...] bowel gas. Recommend repeat exam or CT. [employer] Phone: radiology Study observation (narrative)[employer] Phone: XR ABDOMEN (KUB) (SINGLE AP VIEW)Ordered By: Bry Foreman on [id number] Phone: Cult,Bloodon 61-19-3085Odej,BloodSpecimen Description .BLOOD Special Requests R FOREARM 10 ML Culture NO GROWTH 5 DAYS Report Status FINAL 07/23/2022[facility] HospitalComment on above:Performed By: #### ANAX, IFX, PHEP, FKLLC, PE #### [employer] [address] [phone] Transfer Man: Bala Skelton MDCult,BloodSpecimen Description .BLOOD Special Requests L WRIST 10 ML Culture NO GROWTH 5 DAYS Report Status FINAL 07/23/2022[facility] HospitalComment on above:Performed By: #### LACTIC #### [place] [phone] Transfer Man: Bala Skelton MDANA Screen w/reflexon 29-96-8792KJT Screen NegativeNormalNEGTuscarawas HospitalComment on above:Performed By: #### ANAX, IFX, PHEP, FKLLC, PE #### [facility] [email or web address] [address] [place], [place] [phone] Transfer Man: Nicolas CarbonedsDNA2.1 IU/mLNormal<10.0Tuscarawas HospitalComment on above:Result Comment: Reference Range: <10.0 Negative 10.0-15.0 Equivocal >15.0 PositivePerformed By: #### ANAX, IFX, PHEP, FKLLC, PE #### [facility] [email or web address] [address] [place] [address] [phone] Transfer Man: Bala Skelton MDENA Screen0.1 U/mLNormal<0.7MerBarstow Community HospitalComment on above:Result Comment: Reference Range: <0.7 Negative 0.7-1.0 Equivocal >1.0 Positive MICKIE Screen includes U1RNP,RNP70,Sm,Ro(SS-A),La(SS-B),CENP,Scl-70,Gina-1Performed By: #### ANAX, IFX, PHEP, FKLLC, PE #### [employer] [facility] [place], [place] [phone] Transfer Man: Bala Skelton MDANA Screen with Reflexon [id number] ds DNA 2.1NINFSENTARA HALIFAX REGIONAL HOSPITALCommymichigan medical center clare on above: Reference Range: <10.0 Negative 10.0-15.0 Equivocal >15.0 Positive MICKIE Antibodies Screen0.1 U/mLNINF - 0.7 U/mLSENTARA HALIFAX REGIONAL HOSPITALCommymichigan medical center clare on above: Reference Range: <0.7 Negative 0.7-1.0 Equivocal >1.0 Positive MICKIE Screen includes U1RNP,RNP70,Sm,Ro(SS-A),La(SS-B),CENP,Scl-70,Gina-1 Nuclear Ab IF (S) [Titer]NegativeNEGATIVESENTARA VIRGINIA BEACH GENERAL HOSPITALBasic Metab w/rfx MGon 07-22-2022(cont.)NormalTuscarawas HospitalComment on above:Result Comment: Average GFR for 50-59 years old: 93 mL/min/1.73sq m Chronic Kidney Disease: <60 mL/min/1.73sq m Kidney failure: <15 mL/min/1.73sq m eGFR calculated using average adult body mass. Additional eGFR calculator available at: http://www.[employer]/multiple_crcl_2012.htmPerformed By: #### ANAX, IFX, PHEP, FKLLC, PE #### [employer] [address] [place] [address] [phone] Transfer Man: Tracy Carbone gap [Moles/Vol]12 mmol/LNormal9-17Tuscarawas HospitalComment on above:Performed By: #### ANAX, IFX, PHEP, FKLLC, PE #### [employer] [facility] [place], [place] [phone] Transfer Man: SHANNEN Carbonealcium [Mass/Vol]8.5 mg/dLLow8.6-10.4Tuscarawas HospitalComment on above:Performed By: #### ANAX, IFX, PHEP, FKLLC, PE #### [facility] [address] [place] [address] Transfer Man: SHANNEN Carbonehloride [Moles/Vol]101 mmol/OVrjxax50-165HogrkTuscarawas HospitalComment on above:Performed By: #### ANAX, IFX, PHEP, FKLLC, PE #### [facility] [address] [place] [address] Transfer Man: Bala Skelton MDCO2 [Moles/Vol]25 mmol/HYhkoqf39-30GjiwkTuscarawas HospitalComment on above:Performed By: #### ANAX, IFX, PHEP, FKLLC, PE #### [address] [address] Transfer Man: SHANNEN Carbonereatinine [Mass/Vol]1.06 mg/dLHigh0.50-0.90 Tuscaraw[facility] HospitalComment on above:Performed By: #### ANAX, IFX, PHEP, FKLLC, PE #### [facility] [address] [place] [address] Transfer Man: Bala Skelton MDGFR, Amer>60Normal>60Tuscarawas HospitalComment on above:Performed By: #### ANAX, IFX, PHEP, FKLLC, PE #### [facility] [address] [place] [address] Transfer Man: Bala Skelton MDGFR,non Amer55 mL/minLow>60Tuscarawas HospitalComment on above:Performed By: #### ANAX, IFX, PHEP, FKLLC, PE #### [facility] [address] [place] [address] Transfer Man: Bala Skelton MDGlucose [Mass/Vol]172 mg/kBKwhw76-85Pnuyz [facility] Regional Medical CenterComment on above:Performed By: #### ANAX, IFX, PHEP, FKLLC, PE #### [facility] [address] [place] [address] Transfer Man: EDUARDO Carboneotassium [Moles/Vol]4.1 mmol/LNormal3.7-5.3 [facility] HospitalComment on above:Performed By: #### ANAX, IFX, PHEP, FKLLC, PE #### [facility] [address] [place] [address] Transfer Man: ATIF Carboneodium [Moles/Vol]138 mmol/KUtglee432-312XfkwqTuscarawas HospitalComment on above:Performed By: #### ANAX, IFX, PHEP, FKLLC, PE #### [facility] [address] [place] [address] Transfer Man: Bala Skelton MDUrea nitrogen [Mass/Vol]24 mg/dLHigh6-20Tuscarawas HospitalComment on above:Performed By: #### ANAX, IFX, PHEP, FKLLC, PE #### [facility] [address] [place] [address] Transfer Man: James Carbone Metabolic Panel w/ Reflex to MGon 07-12-7960Djzar gap [Moles/Vol]12 mmol/L9 - 17 mmol/LBON [facility] Calcium [Mass/Vol]8.5 mg/dLLow8.6 - 10.4 mg/dLBON [facility]OURS MERCY HEALTHChloride [Moles/Vol]101 mmol/L98 - 107 mmol/LBON SECOURS MERCY HEALTHCO2 [Moles/Vol]25 mmol/L20 - 31 mmol/LBON SECOURS [facility]PITALY HEALTHCreatinine [Mass/Vol]1.06 mg/dLHigh 0.5 - 0.9 mg/dLBON SECOURS WHITE HOSPITALY HEALTHGFR >6060 - PINF mL/min BON [facility] HOSPITALClearApp [facility] HEALTHGFR Non- Mhahpnsr95 mL/cdfDax57 - PINF mL/minBON TRUMBULL REGIONAL MEDICAL CENTERGFR/1.73 sq M.predicted MDRD (S/P/Bld) [Vol rate/Area][facility]ION[facility] HOSPITALComment on above:Average GFR for 50-59 years old: 93 mL/min/1.73sq m Chronic Kidney Disease: <60 mL/min/1.73sq m Kidney failure: <15 mL/min/1.73sq m eGFR calculated using average adult body mass. Additional eGFR calculator available at: http://www.SpinVox/multiple_crcl_2012.htm Glucose [Mass/Vol]172 mg/lCLyjw26 - 99 mg/dLBON [facility] Interpretation and review of laboratory resultsAbnormalSENTARA [facility]ITAL Potassium [Moles/Vol]4.1 mmol/L3.7 - 5.3 mmol/LBON TRUMBULL REGIONAL MEDICAL CENTERSodium [Moles/Vol]138 mmol/L135 - 144 mmol/LBON TRUMBULL REGIONAL MEDICAL CENTERUrea nitrogen (BldV) [Mass/Vol]24 mg/dLHigh6 - 20 mg/dLBON [facility] ABERDEEN MEDICAL CENTERElectrophoresis Protein, Serumon 77-48-8122Xqzguma %57 %45 - 65 %[facility] HOSPITALAlbumin [Mass/Vol]3.6 g/dL3.2 - 5.2 g/dLBON [facility] HEALTHAlpha 1 %4 %3 - 6 %[facility] HEALTHAlpha 2 %15 %High6 - 13 %[facility] PFBRWGQlthj-5-Olmssfql8.2 g/dL0.1 - 0.4 g/dLBON TRUMBULL REGIONAL MEDICAL CENTERTJQDWEIifmt-9-Jkbvldsf1.9 g/dL0.5 - 0.9 g/dLBON [facility] HEALTHBeta Globulin0.9 g/dL0.5 - 1.1 g/dLBON TRUMBULL REGIONAL MEDICAL CENTERBeta Krkimkc95 %11 - 19 % [facility] HOSPITALFree PSA/Total PSA [Mass fraction]6.3 g/dLLow6.4 - 8.3 g/dLBON TRUMBULL REGIONAL MEDICAL CENTERGamma Globulin0.6 g/dL0.5 - 1.5 g/dLBON TRUMBULL REGIONAL MEDICAL CENTERGamma Globulin %10 %9 - 20 %[facility] HOSPITALInterpretation and review of laboratory resultsAbnoCarilion Giles Memorial HospitalPathologist Cyto stain Nom (Cvx/Vag) [ID]Reviewed by pathologist: Mary Stovall M.D.[facility]IONAL HOSPITALProtein Electrophoresis, SerumNORMAL ELECTROPHORETIC PATTERN [facility]IONAL HOSPITALComment on above:IMMUNOFIXATION IS NEGATIVE FOR MONOCLONAL IMMUNOGLOBULIN.Total Prot. Sum6.2 g/dLLow6.3 - 8.2 g/dLBON TRUMBULL REGIONAL MEDICAL CENTERTotal Prot. Sum,%100 %98 - 102 %[facility] HOSPITALHepatitis Acute [facility] 75-58-9983Wiy A Ab,IgMNon-ReactiveOhioHealth Arthur G.H. Bing, MD, Cancer CenterComment on above:Performed By: #### ANAX, IFX, PHEP, FKLLC, PE #### [employer] [address] [place] [address] Transfer Man: Toya Carbone Core Ab,IgMNon-ReactiveMercy Health St. Elizabeth Youngstown HospitalComment on above:Performed By: #### ANAX, IFX, PHEP, FKLLC, PE #### [facility] [address] [place] [address] [phone] Transfer Man: Toya Carbone Surf AgNon-ReactiveMercy Health St. Elizabeth Youngstown HospitalComment on above:Performed By: #### ANAX, IFX, PHEP, FKLLC, PE #### [facility] [address] [place] [address] [phone] Transfer Man: Toya Carbone AbNon-ReactiveMercy Health St. Elizabeth Youngstown HospitalCommymichigan medical center clare on above:Result Comment: The hepatitis C procedure used in [...] is recommended by ordering HCV RNA by PCR.Performed By: #### ANAX, IFX, PHEP, FKLLC, PE #### [employer] [address] [place], [place] [phone] Transfer Man: Stefania Carbone Panel, Acuteon 05-79-7123XOD IgM IA Qn (S)Non-ReactiveNONREACTIVESOUTHERN VIRGINIA REGIONAL MEDICAL CENTER HEALTHHep B Core Ab, IgM Non-ReactiveNONREACTIVEBON [facility] HEALTHHepatitis B Surface Ag Non-ReactiveNONREACTIVESENTARA HALIFAX REGIONAL HOSPITALHepatitis C AbNon-Reactive NONREACTIVESENTARA HALIFAX REGIONAL HOSPITALComment on above: The hepatitis C procedure used [...] recommended by ordering HCV RNA by PCR. [facility] HEALTHImmunofixation serum profileon 80-43-3966Oylkcvkterd Cyto stain Nom (Cvx/Vag) [ID]Reviewed by pathologist: Mary Stovall M.D.[facility] REGIONAL HOSPITALSerum IFX InterpIMMUNOFIXATION IS NEGATIVE FOR MONOCLONAL IMMUNOGLOBULIN.[facility] HEALTHImmunofixation urine random profileon 83-59-2281Zlsichx (U) [Mass/Vol]144 mg/dLBON TRUMBULL REGIONAL MEDICAL CENTERUrine IFX InterpIMMUNOFIXATION IS NEGATIVE FOR MONOCLONAL IMMUNOGLOBULIN.[facility] HEALTHUrine IFX Specimen.URINEBON [facility] HEALTHImmunofixation,Bloodon 10-64-4303VSK - Interpret. IMMUNOFIXATION IS NEGATIVE FOR MONOCLONAL IMMUNOGLOBULIN.NormalTuscarawas HospitalComment on above:Performed By: #### ANAX, IFX, PHEP, FKLLC, PE #### [employer] [address] [place], [place] [phone] Transfer Man: EDUARDO Carboneathologist Review:Reviewed by pathologist: Mary Stovall M.D.[facility] HospitalComment on above: Performed By: #### ANAX, IFX, PHEP, FKLLC, PE #### [facility] [address] [place] [address] [phone] Transfer Man: Bala Skelton MDImmunofixation,Urineon 88-90-3962Wm. IFX-InterpretIMMUNOFIXATION IS NEGATIVE FOR MONOCLONAL IMMUNOGLOBULIN.[facility] HospitalComment on above:Performed By: #### ANAX, IFX, PHEP, FKLLC, PE #### [facility] [place], [place] [phone] Transfer Man: Bala Skelton MDLactic Acidon 72-55-2798Qjzcxx Acid,Whole Bl1.9 mmol/LNormal0.7-2.1MMarinHealth Medical CenterComment on above:Performed By: #### ANAX, IFX, PHEP, FKLLC, PE #### [facility] [email or web address] [address] [place] [address] [phone] Transfer Man: Bala Skelton MDLactic Acid, Whole Blood1.9 mmol/L0.7 - 2.1 mmol/LBON [facility] ABERDEEN MEDICAL CENTERLactic Acid,Whole Bl2.3 mmol/LHigh0.7-2.1MMarinHealth Medical CenterComment on above:Performed By: #### LACTIC #### [facility] [email or web address] [address] [place] [address] Transfer Man: Bala Skelton MDInterpretation and review of laboratory results AbnormalBON TRUMBULL REGIONAL MEDICAL CENTERLactic Acid, Whole Blood2.3 mmol/LHigh0.7 - 2.1 mmol/LBON [facility] Glucose Fingerstickon 15-17-3233Ypngfpw [Mass/Vol]164 mg/cYXtuh26 - 105 mg/dLBON [facility] Interpretation and review of laboratory resultsAbnormalVERDE VALLEY [facility] MEDICAL CENTERGlucose [Mass/Vol]177 mg/kANokj87 - 105 mg/dLBON TRUMBULL REGIONAL MEDICAL CENTERInterpretation and review of laboratory resultsAbnormalSENTARA VIRGIN[facility] BEACH GENERAL HOSPITALProt. Electroph, Blon 48-25-5609Jdjirhxsjhg Review:Reviewed by pathologist: Mary Stovall M.D.[facility] HospitalComment on above:Performed By: #### ANAX, IFX, PHEP, FKLLC, PE #### [facility] [email or web address] [address] [place] [phone] Transfer Man: MDProt. Raf Elect-InterpNORMAL ELECTROPHORETIC PATTERN [facility] HospitalComment on above:Result Comment: IMMUNOFIXATION IS NEGATIVE FOR MONOCLONAL IMMUNOGLOBULIN.Performed By: #### ANAX, IFX, PHEP, FKLLC, PE #### [facility] [email or web address] [address] [place] [phone] Transfer Man: Steff Carbone Prot. Sum6.2 g/dLLow6.3-8.2Mer[facility] Medical CenterComment on above:Performed By: #### ANAX, IFX, PHEP, FKLLC, PE #### [facility] [email or web address] [address] [place] [address] Transfer Man: Steff Carbone Prot. Sum,%100 %Bempwi10-929BijpjTuscarawas HospitalComment on above:Performed By: #### ANAX, IFX, PHEP, FKLLC, PE #### [facility] [address] [place] [address] Transfer Man: MDProt. Raf Electrophoresis, Uron 07-22-2022 Pathologist Review:Reviewed by pathologist: Mary Stovall M.D.[facility] HospitalComment on above:Performed By: #### ANAX, IFX, PHEP, FKLLC, PE #### [facility] [email or web address] [address] [place], [place] [phone] Transfer Man: Avani Carbone.-Prot.Elect-InterELEVATED PROTEIN CONCENTRATION. MOST SERUM PROTEINS ARE DETECTED IN THIS URINE.[facility] HospitalComment on above:Result Comment: USUALLY OBSERVED WITH MARKEDLY INCREASED NON-SELECTIVE GLOMERULAR PERMEABILITY (i.e. SEVERE GLOMERULAR DISEASE), CONTAMINATION OF URINE WITH BLOOD, OR A COMBINATION OF THESE. A DECREASE IN TUBULAR FUNCTION CANNOT BE RULED OUT. IMMUNOFIXATION IS NEGATIVE FOR MONOCLONAL IMMUNOGLOBULIN.Performed By: #### ANAX, IFX, PHEP, FKLLC, PE #### [employer] [address] [place], [place] [phone] Transfer Man: EDUARDO Carbonerotein Electrophoresis, Urineon 07-22-2022 E Interpretation, UELEVATED PROTEIN CONCENTRATION. MOST SERUM PROTEINS ARE DETECTED IN THIS URINE. USUALLY OBSERVED WITH MARKEDLY INCREASED NON-SELECTIVE GLOMERULAR PERMEABILITY (i.e. SEVERE GLOMERULAR DISEASE), CONTAMINATION OFBON [facility] [employer] [facility] MEDICAL CENTERCommymichigan medical center clare on above:URINE WITH BLOOD, OR A COMBINATION OF THESE. A DECREASE IN TUBULAR FUNCTION CANNOT BE RULED OUT. IMMUNOFIXATION IS NEGATIVE FOR MONOCLONAL IMMUNOGLOBULIN. PathologistReviewed by pathologist: Mary Stovall M.D.[facility] [employer] HEALTHProtein (U) [Mass/Vol]144 mg/dLBON DragonflySpecimen Type.URINE [employer] PharmaceuticalsBON COPPER SPRINGS HOSPITALFreedom Basketball LeagueBasic Metab w/rfx MGon 07-21-2022(cont.)[facility] HospitalComment on above:Result Comment: Average GFR for 50-59 years old: 93 mL/min/1.73sq m Chronic Kidney Disease: <60 mL/min/1.73sq m Kidney failure: <15 mL/min/1.73sq m eGFR calculated using average adult body mass. Additional eGFR calculator available at: http://www.[employer]/multiple_crcl_2012.htmPerformed By: #### ANAX, IFX, PHEP, FKLLC, PE #### [employer] [address] [place], [place] [phone] Transfer Man: Bala Skelton MDAnion gap [Moles/Vol]12 mmol/LNormal9-17Tuscarawas HospitalComment on above:Performed By: #### ANAX, IFX, PHEP, FKLLC, PE #### [facility] [address] [place] [address] Transfer Man: Bala Skelton MDCalcium [Mass/Vol]8.3 mg/dLLow8.6-10.4Tuscarawas HospitalComment on above:Performed By: #### ANAX, IFX, PHEP, FKLLC, PE #### [facility] [email or web address] [address] [place] [address] Transfer Man: Bala Skelton MDChloride [Moles/Vol]101 mmol/ZRnfwaw73-666MyzfeTuscarawas HospitalComment on above:Performed By: #### ANAX, IFX, PHEP, FKLLC, PE #### [facility] [email or web address] [address] [place] [address] Transfer Man: Bala Skelton MDCO2 [Moles/Vol]23 mmol/EJoxfus61-21UapjgTuscarawas HospitalComment on above:Performed By: #### ANAX, IFX, PHEP, FKLLC, PE #### [facility] [email or web address] [address] [place] [address] Transfer Man: Bala Skelton MDCreatinine [Mass/Vol]1.00 mg/dLHigh0.50-0.90 [facility]as HospitalComment on above:Performed By: #### ANAX, IFX, PHEP, FKLLC, PE #### [facility] [email or web address] [address] [place] [address] 00746 Transfer Man: MIKE Carbone, Amer>60Normal>60Tuscarawas HospitalComment on above:Performed By: #### ANAX, IFX, PHEP, FKLLC, PE #### [facility] [address] [place] [address] Transfer Man: Bala Skelton MDGFR,non Amer59 mL/minLow>60T[facility]carawas HospitalComment on above:Performed By: #### ANAX, IFX, PHEP, FKLLC, PE #### [facility] [address] [place] [address] Transfer Man: Bala Skelton MDGlucose [Mass/Vol]157 mg/qYTjsh94-52QneaiMarinHealth Medical CenterComment on above:Performed By: #### ANAX, IFX, PHEP, FKLLC, PE #### [address] [address] Transfer Man: EDUARDO Carboneotassium [Moles/Vol]3.7 mmol/LNormal3.7-5.3 [facility] HospitalComment on above:Performed By: #### ANAX, IFX, PHEP, FKLLC, PE #### [address] [address] Transfer Man: ATIF Carboneodium [Moles/Vol]136 mmol/ICcarse835-445VztqtTuscarawas HospitalComment on above:Performed By: #### ANAX, IFX, PHEP, FKLLC, PE #### [address] [address] Transfer Man: Bala Skelton MDUrea nitrogen [Mass/Vol]26 mg/dLHigh6-20Tuscarawas HospitalComment on above:Performed By: #### ANAX, IFX, PHEP, FKLLC, PE #### [address] [address] Transfer Man: Bala Skelton MD(cont.)[facility] Comment on above:Result Comment: Average GFR for 50-59 years old: 93 mL/min/1.73sq m Chronic Kidney Disease: <60 mL/min/1.73sq m Kidney failure: <15 mL/min/1.73sq m eGFR calculated using average adult body mass. Additional eGFR calculator available at: http://www.[employer]/multiple_crcl_2012.htmPerformed By: #### BC #### [address] [address] Transfer Man: Bala Skelton MDAnion gap [Moles/Vol]13 mmol/LNormal9-17Tuscarawas HospitalComment on above:Performed By: #### BC #### [address] [address] Transfer Man: SHANNEN Carbonealcium [Mass/Vol]8.1 mg/dLLow8.6-10.4Tuscarawas HospitalComment on above:Performed By: #### BC #### [address] [address] Transfer Man: Bala Skelton MDChloride [Moles/Vol]101 mmol/DMonvcl04-936AkcyvTuscarawas HospitalComment on above:Performed By: #### BC #### [address] [address] Transfer Man: Bala Skelton MDCO2 [Moles/Vol]20 mmol/FJentwv32-02VjqjhTuscarawas HospitalComment on above:Performed By: #### BC #### [address] [address] Transfer Man: SHANNEN Carbonereatinine [Mass/Vol]1.28 mg/dLHigh0.50-0.90 [facility] HospitalComment on above:Performed By: #### BC #### [address] [address] Transfer Man: Bala Skelton MDGFR, Amer54 mL/minLow>60T[facility]carawas HospitalComment on above:Performed By: #### BC #### [address] [address] Transfer Man: Bala Skelton MDGFR,non Amer44 mL/minLow>60T[facility]carawas HospitalComment on above:Performed By: #### BC #### [address] [address] Transfer Man: Bala Skelton MDGlucose [Mass/Vol]224 mg/pPFvkd88-98ZunabMarinHealth Medical CenterComment on above:Performed By: #### BC #### [address] [address] Transfer Man: Bala Skelton MDPotassium [Moles/Vol]3.8 mmol/LNormal3.7-5.3 [facility] HospitalComment on above:Performed By: #### BC #### [address] [address] Transfer Man: ATIF Carboneodium [Moles/Vol]134 mmol/NIey307-115JdpocTuscarawas HospitalComment on above:Performed By: #### BC #### [address] [address] Transfer Man: Bala Skelton MDUrea nitrogen [Mass/Vol]28 mg/dLHigh6-20T[facility]carawas HospitalComment on above:Performed By: #### BC #### [address] [address] Transfer Man: Bala Skelton MDAnion gap [Moles/Vol]13 mmol/LNormal9-17T[facility]carawas HospitalComment on above:Performed By: #### ANAX, IFX, PHEP, FKLLC, PE #### [address] [phone] Transfer Man: Bala Skelton MDSodium [Moles/Vol]131 mmol/OHjq264-507SshubTuscarawas HospitalComment on above:Performed By: #### ANAX, IFX, PHEP, FKLLC, PE #### [facility] [email or web address] [address] [place] [address] Transfer Man: Bala Skelton MD(cont.)[facility] Comment on above:Result Comment: Average GFR for 50-59 years old: 93 mL/min/1.73sq m Chronic Kidney Disease: <60 mL/min/1.73sq m Kidney failure: <15 mL/min/1.73sq m eGFR calculated using average adult body mass. Additional eGFR calculator available at: http://www.[employer]/multiple_crcl_2012.htmPerformed By: #### ANAX, IFX, PHEP, FKLLC, PE #### [facility] [address] [place] [address] Transfer Man: Bala Skelton MDCalcium [Mass/Vol]8.4 mg/dLLow8.6-10.4Tuscarawas HospitalComment on above:Performed By: #### ANAX, IFX, PHEP, FKLLC, PE #### [facility] [email or web address] [address] [place] [address] Transfer Man: Bala Skelton MDChloride [Moles/Vol]100 mmol/PLsmyqj51-655IdktbTuscarawas HospitalComment on above:Performed By: #### ANAX, IFX, PHEP, FKLLC, PE #### [facility] [address] [place] [address] Transfer Man: Bala Skelton MDCO2 [Moles/Vol]18 mmol/ZAeo63-16OqjcsTuscarawas HospitalComment on above:Performed By: #### ANAX, IFX, PHEP, FKLLC, PE #### [facility] [email or web address] [address] [place], [place] [address], [place] [address] Transfer Man: SHANNEN Carbonereatinine [Mass/Vol]1.37 mg/dLHigh0.50-0.90 [facility] HospitalComment on above:Performed By: #### ANAX, IFX, PHEP, FKLLC, PE #### [address] [address] Transfer Man: Bala Skelton MDGFR, Amer49 mL/minLow>60Tuscarawas HospitalComment on above:Performed By: #### ANAX, IFX, PHEP, FKLLC, PE #### [address] [address] Transfer Man: Bala Skelton MDGFR,non Amer41 mL/minLow>60T[facility]carawas HospitalComment on above:Performed By: #### ANAX, IFX, PHEP, FKLLC, PE #### [address] [address] Transfer Man: Bala Skelton MDGlucose [Mass/Vol]184 mg/qBFnse12-82RqgygMarinHealth Medical CenterComment on above:Performed By: #### ANAX, IFX, PHEP, FKLLC, PE #### [place] [address] Transfer Man: EDUARDO Carboneotassium [Moles/Vol]3.8 mmol/LNormal3.7-5.3 [facility] HospitalComment on above:Performed By: #### ANAX, IFX, PHEP, FKLLC, PE #### [address] [address] Transfer Man: Bala Skelton MDUrea nitrogen [Mass/Vol]27 mg/dLHigh6-20Tuscarawas HospitalComment on above:Performed By: #### ANAX, IFX, PHEP, FKLLC, PE #### [facility] [address] [place] [address] Transfer Man: Bala Skelton MDWind[facility] Metabolic Panel w/ Reflex to MGon 42-20-9412Qhaid gap [Moles/Vol]12 mmol/L9 - 17 mmol/LBON [facility] [employer] Calcium [Mass/Vol]8.3 mg/dLLow8.6 - 10.4 mg/dLBON SECASTRIA TOPPENISH HOSPITALAdjudica HEALTHChloride [Moles/Vol]101 mmol/L98 - 107 mmol/LBON [facility] MED[facility] CENTERCO2 [Moles/Vol]23 mmol/L20 - 31 mmol/LBON [facility] CENTERCreatinine [Mass/Vol]1 mg/dLHigh0.5 - 0.9 mg/dLBON SECASTRIA TOPPENISH HOSPITALUnderstoryGFR >6060 - PINF mL/minBON [facility] HOSPITALAdjudica [facility] CENTERGFR Non- Vhxnbpoq20 mL/nwoAdf26 - PINF mL/minBON [facility] Sub10 SystemsGFR/1.73 sq M.predicted MDRD (S/P/Bld) [Vol rate/Area]BON [facility] MEDICAL CENTERComment on above:Average GFR for 50-59 years old: 93 mL/min/1.73sq m Chronic Kidney Disease: <60 mL/min/1.73sq m Kidney failure: <15 mL/min/1.73sq m eGFR calculated using average adult body mass. Additional eGFR calculator available at: http://www.[employer]/multiple_crcl_2011.htm Glucose [Mass/Vol]157 mg/rFNguh35 - 99 mg/dLBON [facility] Interpretation and review of laboratory resultsAbnormalBON [facility] [employer] Potassium [Moles/Vol]3.7 mmol/L3.7 - 5.3 mmol/LBON SECUNIVERSITY H[facility] MEDICAL CENTERSodium [Moles/Vol]136 mmol/L135 - 144 mmol/LBON [facility] [employer] MedicalUrea nitrogen (BldV) [Mass/Vol]26 mg/dLHigh6 - 20 mg/dLBON SECUNIVERSITY HOSPITALS ST. JOHN MEDICAL CENTERBON SECUNIVERSITY HOSPITALS ST. JOHN MEDICAL CENTERAnion gap [Moles/Vol]13 mmol/L9 - 17 mmol/LBON SECAST[facility] TOPPENISH HOSPITALUnderstory Calcium [Mass/Vol]8.1 mg/dLLow8.6 - 10.4 mg/dLBON TRUM[facility]IONAL MEDICAL CENTERChloride [Moles/Vol]101 mmol/L98 - 107 mmol/LBON [facility] MEDICAL CENTERCO2 [Moles/Vol]20 mmol/L20 - 31 mmol/LBON [facility] MEDICAL CENTERCreatinine [Mass/Vol]1.28 mg/dLHigh 0.5 - 0.9 mg/dLBON [facility] MEDICAL CENTERGFR Mcjmrifg99 mL/hdmRjn29 - PINF mL/minBON [facility] MEDICAL CENTERGFR Non- Nkphjeun09 mL/dubPzv37 - PINF mL/minBON [facility] MEDICAL CENTERGFR/1.73 sq M.predicted MDRD (S/P/Bld) [Vol rate/Area][facility] HOSPITALComment on above:Average GFR for 50-59 years old: 93 mL/min/1.73sq m Chronic Kidney Disease: <60 mL/min/1.73sq m Kidney failure: <15 mL/min/1.73sq m eGFR calculated using average adult body mass. Additional eGFR calculator available at: http://www.[employer]/multiple_crcl_2012.htm Glucose [Mass/Vol]224 mg/wJLfby59 - 99 mg/dLBON [facility] Interpretation and review of laboratory resultsAbnormalSENTARA [facility]ITAL Potassium [Moles/Vol]3.8 mmol/L3.7 - 5.3 mmol/LBON TR[facility] REGIONAL MEDICAL CENTERSodium [Moles/Vol]134 mmol/OWin230 - 144 mmol/LBON [facility]IONAL MEDICAL CENTERUrea nitrogen (BldV) [Mass/Vol]28 mg/dLHigh6 - 20 mg/dLBON [facility] MEDICAL CENTERImmunofixation,Urineon 78-26-5656Goncxsk (U) [Mass/Vol]144 mg/dL NormalAvita Health Systemcy Shasta Regional Medical CenterComment on above:Performed By: #### ANAX, IFX, PHEP, FKLLC, PE #### [facility] [address] [phone] Transfer Man: Bala Skelton MDType of Specimen.URINENormalMercy Shasta Regional Medical CenterComment on above:Performed By: #### ANAX, IFX, PHEP, FKLLC, PE #### [facility] [email or web address] [address] [place] [address] [phone] Transfer Man: Timoteo Carbonectic Acidon 69-62-2408Jyjfwm Acid,Whole Bl2.5 mmol/LHigh0.7-2.1MMarinHealth Medical CenterComment on above:Performed By: #### ANAX, IFX, PHEP, FKLLC, PE #### [facility] [address] [place] [address] [phone] Transfer Man: Bala Skelton MDInterpretation and review of laboratory results AbnormalBON TRUMBULL REGIONAL MEDICAL CENTERLactic Acid, Whole Blood2.5 mmol/LHigh0.7 - 2.1 mmol/LBON SECASCENSION CALUMET HOSPITALLactic Acid,Whole Bl1.9 mmol/LNormal0.7-2.1MMarinHealth Medical CenterComment on above:Performed By: #### LACTIC #### [facility] [email or web address] [address] [place] [address] [phone] Transfer Man: Bala Skelton MDLactic Acid, Whole Blood1.9 mmol/L0.7 - 2.1 mmol/LBON [facility] ABERDEEN MEDICAL CENTERLactic Acid,Whole Bl3.0 mmol/LHigh0.7-2.1MMarinHealth Medical CenterComment on above:Performed By: #### ANAX, IFX, PHEP, FKLLC, PE #### [facility] [address] [place] [address] [phone] Transfer Man: Bala Skelton MDInterpretation and review of laboratory results AbnormalBON TRUMBULL REGIONAL MEDICAL CENTERLactic Acid, Whole Blood3.0 mmol/LHigh0.7 - 2.1 mmol/LBON SECOU[facility] ASPIR[facility] STANLEY HOSPITALLactic Acid,Whole Bl2.2 mmol/LHigh0.7-2.1[facility] Medical CenterComment on above:Performed By: #### ANAX, IFX, PHEP, FKLLC, PE #### [facility] [address] [place] [address] Transfer Man: Bala Skelton MDInterpretation and review of laboratory results AbnormalSENTARA HALIFAX REGIONAL HOSPITALLactic Acid, Whole Blood2.2 mmol/LHigh0.7 - 2.1 mmol/LBON [facility]ERDE[facility] MEDICAL CENTERPO Glucose Fingerstickon 90-48-4282Xwvejtk [Mass/Vol]210 mg/wDRice25 - 105 mg/dLBON [facility] Interpretation and review of laboratory resultsAbnormalSENTARA MARTHA JEFFERSON HOSPITALGlucose [Mass/Vol]142 mg/sLPujf11 - 105 mg/dLBON [facility] MEDICAL CENTERInterpretation and review of laboratory resultsAbnormalSENTARA VIRGIN[facility] GENERAL HOSPITALGlucose [Mass/Vol]227 mg/tYYjpu95 - 105 mg/dLBON [facility] MEDICAL CENTERInterpretation and review of laboratory results AbnormalBON SANF[facility] ABERDEEN MEDICAL CENTERGlucose [Mass/Vol]219 mg/bTXdtl43 - 105 mg/dLBON [facility] MEDICAL CENTERInterpretation and review of laboratory resultsAbnormalSENTARA VIRGINIA BEACH GENERAL HOSPITALProt. Electroph, Blon 09-64-3509Ndukhrl [Mass/Vol]3.6 g/dLNormal3.2-5.2Mkettering health behavioral medical centery [facility] Medical CenterComment on above:Performed By: #### ANAX, IFX, PHEP, FKLLC, PE #### [facility] [address] [place] [address] Transfer Man: Bala Skelton MDAlbumin, %57 %Jovfib83-95MuxtfTuscarawas HospitalComment on above:Performed By: #### ANAX, IFX, PHEP, FKLLC, PE #### [facility] [address] [place], [place] [phone] Transfer Man: Bala Skelton, GJBatgw-8-occajgbho7.2 g/dLNormal0.1-0.4Tuscarawas HospitalComment on above:Performed By: #### ANAX, IFX, PHEP, FKLLC, PE #### [facility] [email or web address] [address] [place] [address] Transfer Man: Bala Skelton MDAlpha-1-globulins,%4 %Normal3-6[facility] Medical CenterComment on above:Performed By: #### ANAX, IFX, PHEP, FKLLC, PE #### [address] [address] Transfer Man: Bala Skelton MDAAKFlwqk-2-ykxcfzhnv2.9 g/dLNormal0.5-0.9Tuscarawas HospitalComment on above:Performed By: #### ANAX, IFX, PHEP, FKLLC, PE #### [address] [address] Transfer Man: Bala Skelton MDAlpha-2-globulins,%15 %High6-13Tuscarawas HospitalComment on above:Performed By: #### ANAX, IFX, PHEP, FKLLC, PE #### [address] [address] Transfer Man: Bala Skelton MDBeta-globulins0.9 g/dLNormal0.5-1.1[facility] Medical CenterComment on above:Performed By: #### ANAX, IFX, PHEP, FKLLC, PE #### [facility] [email or web address] [address] [place] [address] Transfer Man: Bala Skelton MDBeta-globulins,%14 %Rsoimh83-22ZfjtwTuscarawas HospitalComment on above:Performed By: #### ANAX, IFX, PHEP, FKLLC, PE #### [facility] [address] [place] [address] Transfer Man: Marija Carbonemma-globulins0.6 g/dLNormal0.5-1.5Tuscarawas HospitalComment on above:Performed By: #### ANAX, IFX, PHEP, FKLLC, PE #### [facility] [address] [place] [address] Transfer Man: Marija Carbonemma-globulins,%10 %Normal9-20Tuscarawas HospitalComment on above:Performed By: #### ANAX, IFX, PHEP, FKLLC, PE #### [facility] [address] [place] [address] Transfer Man: Rico Carbone. Electrophoresis, Uron 95-00-6625Jkzdu Protein Conc.144 mg/dLNormalTuscarawas HospitalComment on above: Performed By: #### ANAX, IFX, PHEP, FKLLC, PE #### [facility] [address] [place] [address] Transfer Man: MANNY Carbone GAS, VENOUSon 24-48-0570Rqyhnphlixijgwkzl 1.4 %0 - 5 %[facility] HOSPITALComment on above: Reference Range: Non-Smokers 0-2% Average Smoker 2-4% Heavy Smoker <10% [id number] NOT PROVIDEDBON TRUMBULL REGIONAL MEDICAL CENTERHCO3 (Bld) [Moles/Vol]19.6 mmol/LLow24 - 30 mmol/LBON [facility] HEALTHInterpretation and review of laboratory resultsAbnormalBON TRUMBULL REGIONAL MEDICAL CENTERNegative Base Excess, Ven5.6 mmol/LHigh0 - 2 mmol/LBON [facility]UM[facility]ULL REGIONAL MEDICAL CENTEROxygen saturation in Blood74.4 %60 - 85 %[facility] HEALTHpCO2, Ven39.539 - 55B[facility] HEALTHpH, Ven7.578Qzb0.32 - 7.42BON SECUNIV[facility] MEDICAL CENTERpO2, Ven36.930 - 50BON [facility] MEDICAL CENTERPt Temp37.0BON [facility] MEDICAL CENTERBasic Metab w/rfx MGon 07-20-2022(cont.)NormalTuscarawas HospitalComment on above:Result Comment: Average GFR for 50-59 years old: 93 mL/min/1.73sq m Chronic Kidney Disease: <60 mL/min/1.73sq m Kidney failure: <15 mL/min/1.73sq m eGFR calculated using average adult body mass. Additional eGFR calculator available at: http://www.[employer]/multiple_crcl_2012.htmPerformed By: #### ANAX, IFX, PHEP, FKLLC, PE #### [facility] [address] [place] [address] [phone] Transfer Man: Bala Skelton MDAnion gap [Moles/Vol]13 mmol/LNormal9-17Tuscarawas HospitalComment on above:Performed By: #### ANAX, IFX, PHEP, FKLLC, PE #### [facility] [address] [place] [address] Transfer Man: SHANNEN Carbonealcium [Mass/Vol]8.7 mg/dLNormal8.6-10.4Tuscarawas HospitalComment on above:Performed By: #### ANAX, IFX, PHEP, FKLLC, PE #### [facility] [address] [place] [address] Transfer Man: Bala Skelton MDChloride [Moles/Vol]97 mmol/SQxp62-048HoyylTuscarawas HospitalComment on above:Performed By: #### ANAX, IFX, PHEP, FKLLC, PE #### [facility] [address] [place] [address] Transfer Man: Bala Skelton MDCO2 [Moles/Vol]18 mmol/TEaq70-04LbleyTuscarawas HospitalComment on above:Performed By: #### ANAX, IFX, PHEP, FKLLC, PE #### [facility] [address] [place] [address] Transfer Man: SHANNEN Carbonereatinine [Mass/Vol]1.62 mg/dLHigh0.50-0.90 [facility] HospitalComment on above:Performed By: #### ANAX, IFX, PHEP, FKLLC, PE #### [address] [address] Transfer Man: Bala Skelton MDGFR, Amer41 mL/minLow>60Tuscarawas HospitalComment on above:Performed By: #### ANAX, IFX, PHEP, FKLLC, PE #### [address] [address] Transfer Man: MIKE Carbone,non Amer34 mL/minLow>60Tuscarawas HospitalComment on above:Performed By: #### ANAX, IFX, PHEP, FKLLC, PE #### [address] [address] Transfer Man: Bala Skelton MDGlucose [Mass/Vol]360 mg/uCPrrz34-28ObkqeMarinHealth Medical CenterComment on above:Performed By: #### ANAX, IFX, PHEP, FKLLC, PE #### [address] [address] Transfer Man: Bala Skelton MDPotassium [Moles/Vol]5.1 mmol/LNormal3.7-5.3 [facility] HospitalComment on above:Performed By: #### ANAX, IFX, PHEP, FKLLC, PE #### [address] [address] Transfer Man: Bala Madoff, MDSodium [Moles/Vol]128 mmol/PPrx305-164NglgsTuscarawas HospitalComment on above:Performed By: #### ANAX, IFX, PHEP, FKLLC, PE #### [facility] [address] [place] [address] Transfer Man: Bala Skelton MDUrea nitrogen [Mass/Vol]32 mg/dLHigh6-20Tuscarawas HospitalComment on above:Performed By: #### ANAX, IFX, PHEP, FKLLC, PE #### [facility] [address] [place] [address] Transfer Man: Bala Skelton MD(cont.)[facility] Comment on above:Result Comment: Average GFR for 50-59 years old: 93 mL/min/1.73sq m Chronic Kidney Disease: <60 mL/min/1.73sq m Kidney failure: <15 mL/min/1.73sq m eGFR calculated using average adult body mass. Additional eGFR calculator available at: http://www.[employer]/multiple_crcl_2012.htmPerformed By: #### ANAX, IFX, PHEP, FKLLC, PE #### [facility] [address] [place] [address] Transfer Man: Bala Skelton MDAnion gap [Moles/Vol]14 mmol/LNormal9-17Tuscarawas HospitalComment on above:Performed By: #### ANAX, IFX, PHEP, FKLLC, PE #### [facility] [address] [place] [address] Transfer Man: SHANNEN Carbonealcium [Mass/Vol]8.2 mg/dLLow8.6-10.4Tuscarawas HospitalComment on above:Performed By: #### ANAX, IFX, PHEP, FKLLC, PE #### [facility] [address] [place] [address] Transfer Man: Bala Skelton MDChloride [Moles/Vol]96 mmol/HKey00-355JfrvjTuscarawas HospitalComment on above:Performed By: #### ANAX, IFX, PHEP, FKLLC, PE #### [address] [address] Transfer Man: Bala Skelton MDCO2 [Moles/Vol]17 mmol/PBwq25-10DcumpTuscarawas HospitalComment on above:Performed By: #### ANAX, IFX, PHEP, FKLLC, PE #### [address] [address] Transfer Man: SHANNEN Carbonereatinine [Mass/Vol]1.68 mg/dLHigh0.50-0.90 [facility] HospitalComment on above:Performed By: #### ANAX, IFX, PHEP, FKLLC, PE #### [address] [address] Transfer Man: MIKE Carbone, Amer39 mL/minLow>60Tuscarawas HospitalComment on above:Performed By: #### ANAX, IFX, PHEP, FKLLC, PE #### [address] [phone] Transfer Man: MIKE Carbone,non Amer32 mL/minLow>60Tuscarawas HospitalComment on above:Performed By: #### ANAX, IFX, PHEP, FKLLC, PE #### [address] [address] Transfer Man: Bala Skelton MDPotassium [Moles/Vol]4.4 mmol/LNormal3.7-5.3 [facility] HospitalComment on above:Performed By: #### ANAX, IFX, PHEP, FKLLC, PE #### [facility] [address] [place] [address] Transfer Man: ATIF Carboneodium [Moles/Vol]127 mmol/FDgw304-326TfgazTuscarawas HospitalComment on above:Performed By: #### ANAX, IFX, PHEP, FKLLC, PE #### [facility] [address] [place] [address] Transfer Man: Bala Skelton MDUrea nitrogen [Mass/Vol]33 mg/dLHigh6-20Tuscarawas HospitalComment on above:Performed By: #### ANAX, IFX, PHEP, FKLLC, PE #### [facility] [address] [place] [address] Transfer Man: Bala Skelton MDGlucose [Mass/Vol]427 mg/dLCritically uvyk32-65 [facility] HOSPITALComment on above:Performed By: #### ANAX, IFX, PHEP, FKLLC, PE #### [facility] [address] [place] [address] Transfer Man: Bala Skelton MDGlucose [Mass/Vol]416 mg/dLCritically bqom65-43 [facility] HospitalComment on above:Performed By: #### ANAX, IFX, PHEP, FKLLC, PE #### [facility] [address] [place] [address] Transfer Man: Bala Skelton MD(cont.)[facility] Comment on above:Result Comment: Average GFR for 50-59 years old: 93 mL/min/1.73sq m Chronic Kidney Disease: <60 mL/min/1.73sq m Kidney failure: <15 mL/min/1.73sq m eGFR calculated using average adult body mass. Additional eGFR calculator available at: http://www.[employer]/multiple_crcl_2012.htmPerformed By: #### ANAX, IFX, PHEP, FKLLC, PE #### [facility] [place] [address] Transfer Man: Bala Skelton MDAnion gap [Moles/Vol]15 mmol/LNormal9-17Tuscarawas HospitalComment on above:Performed By: #### ANAX, IFX, PHEP, FKLLC, PE #### [facility] [address] [place] [address] Transfer Man: SHANNEN Carbonealcium [Mass/Vol]8.5 mg/dLLow8.6-10.4Tuscarawas HospitalComment on above:Performed By: #### ANAX, IFX, PHEP, FKLLC, PE #### [address] [address] Transfer Man: Bala Skelton MDChloride [Moles/Vol]95 mmol/HLnk31-289EavvbTuscarawas HospitalComment on above:Performed By: #### ANAX, IFX, PHEP, FKLLC, PE #### [facility] [address] [place] [address] Transfer Man: Bala Skelton MDCO2 [Moles/Vol]18 mmol/URgr58-96LnwbuTuscarawas HospitalComment on above:Performed By: #### ANAX, IFX, PHEP, FKLLC, PE #### [address] [address] Transfer Man: Bala Skelton MDCreatinine [Mass/Vol]2.11 mg/dLHigh0.50-0.90 [facility] HospitalComment on above:Performed By: #### ANAX, IFX, PHEP, FKLLC, PE #### [facility] [address] [place] [address] Transfer Man: MIKE Carbone,Yamileth Amer30 mL/minLow>60Tuscarawas HospitalComment on above:Performed By: #### ANAX, IFX, PHEP, FKLLC, PE #### [facility] [address] [place] [address] Transfer Man: Bala Skelton MDGFR,non Amer25 mL/minLow>60T[facility]carawas HospitalComment on above:Performed By: #### ANAX, IFX, PHEP, FKLLC, PE #### [facility] [address] [place] [address] Transfer Man: EDUARDO Carboneotassium [Moles/Vol]5.0 mmol/LNormal3.7-5.3 [facility] HospitalComment on above:Performed By: #### ANAX, IFX, PHEP, FKLLC, PE #### [facility] [address] [place] [address] Transfer Man: ATIF Carboneodium [Moles/Vol]128 mmol/PQyz433-428NboanTuscarawas HospitalComment on above:Performed By: #### ANAX, IFX, PHEP, FKLLC, PE #### [facility] [address] [place] [address] Transfer Man: Bala Skelton MDUrea nitrogen [Mass/Vol]38 mg/dLHigh6-20[place] HospitalComment on above:Performed By: #### ANAX, IFX, PHEP, FKLLC, PE #### [facility] [address] [place] [address] Transfer Man: Bala Skelton MDBasic Metabolic Panelon [id number] gap [Moles/Vol]16 mmol/L9 - 17 mmol/LBON [facility] HEALTHCalcium [Mass/Vol]8.2 mg/dLLow8.6 - 10.4 mg/dLBON [facility] MERCY HEALTHChloride [Moles/Vol]95 mmol/LLow 98 - 107 mmol/LBON [facility] HEALTHCO2 [Moles/Vol]17 mmol/LLow20 - 31 mmol/L [facility]ENTERCreatinine [Mass/Vol]2.35 mg/dLHigh0.5 - 0.9 mg/dLBON [facility] CENTERGFR Axupdujk39 mL/hlaSvy72 - PINF mL/minBON [facility] CENTERGFR Non- Hfnemhia40 mL/ujdVxz30 - PINF mL/minBON [facility]ICAL CENTERGFR/1.73 sq M.predicted MDRD (S/P/Bld) [Vol rate/Area][facility] CENTERComment on above:Average GFR for 50-59 years old: 93 mL/min/1.73sq m Chronic Kidney Disease: <60 mL/min/1.73sq m Kidney failure: <15 mL/min/1.73sq m eGFR calculated using average adult body mass. Additional eGFR calculator available at: http://www.[employer]/multiple_crcl_2011.htm Glucose [Mass/Vol]439 mg/dLCritically high70 - 99 mg/dLB[facility] Interpretation and review of laboratory resultsAbnormalSENTARA [facility] Potassium [Moles/Vol]5.2 mmol/L3.7 - 5.3 mmol/LBON [facility] MEDICAL CENTERSodium [Moles/Vol]128 mmol/RDsq517 - 144 mmol/LBON [facility] MEDICAL CENTERUrea nitrogen (BldV) [Mass/Vol]37 mg/dLHigh6 - 20 mg/dLBON [facility]ENTERBasic Metabolic Panel w/ Reflex to MGon [id number] gap [Moles/Vol]13 mmol/L9 - 17 mmol/LBON [facility] CENTERCalcium [Mass/Vol]8.4 mg/dLLow8.6 - 10.4 mg/dLBON [facility] MEDICAL CENTERChloride [Moles/Vol]100 mmol/L98 - 107 mmol/LBON [facility] MEDICAL CENTERCO2 [Moles/Vol]18 mmol/LLow20 - 31 mmol/L [facility]OSPITALCreatinine [Mass/Vol]1.37 mg/dLHigh0.5 - 0.9 mg/dLB[facility]CY HEALTHGFR Tliodnis77 mL/cbnBom41 - PINF mL/minBON SEC[facility]ITALY HEALTHGFR Non- Tovodyut43 mL/mfhKfg54 - PINF mL/minBON SEC[facility]RS [facility]OSPITALY HEALTHGFR/1.73 sq M.predicted MDRD (S/P/Bld) [Vol rate/Area][facility]ON [facility] HOSPITALClearApp [facility] CENTERComment on above:Average GFR for 50-59 years old: 93 mL/min/1.73sq m Chronic Kidney Disease: <60 mL/min/1.73sq m Kidney failure: <15 mL/min/1.73sq m eGFR calculated using average adult body mass. Additional eGFR calculator available at: http://www.SpinVox/multiple_crcl_2011.htm Glucose [Mass/Vol]184 mg/hOHukf34 - 99 mg/dLBON [facility] Interpretation and review of laboratory resultsAbnormalBON [facility] Potassium [Moles/Vol]3.8 mmol/L3.7 - 5.3 mmol/LBON SECASTRI[facility]PENISH HOSPITALY HEALTHSodium [Moles/Vol]131 mmol/UMjy040 - 144 mmol/LBON SECWILL[facility] HEALTHUrea nitrogen (BldV) [Mass/Vol]27 mg/dLHigh6 - 20 mg/dLBON SECOURS [facility] CENTERBON SECOU[facility]OSPITALY HEALTHAnion gap [Moles/Vol]13 mmol/L9 - 17 mmol/LBON [facility] HEALTH Calcium [Mass/Vol]8.7 mg/dL8.6 - 10.4 mg/dLBON SECOURS [facility]OSPITALY HEALTHChloride [Moles/Vol]97 mmol/LLow98 - 107 mmol/LBON SECOU[facility] HEALTHCO2 [Moles/Vol]18 mmol/LLow20 - 31 mmol/LBON [facility]ITALY HEALTHCreatinine [Mass/Vol]1.62 mg/dL High0.5 - 0.9 mg/dLBON SEC[facility]RS [facility]ITALY HEALTHGFR Yjkdzjlg92 mL/ysdYtl78 - PINF mL/minBON SEC[facility]ITALY HEALTHGFR Non- Hgtmaltt21 mL/vkoZnz51 - PINF mL/minBON SECClearApp [facility] HEALTHGFR/1.73 sq M.predicted MDRD (S/P/Bld) [Vol rate/Area]BON SECClearApp MERCY HEALTHComment on above:Average GFR for 50-59 years old: 93 mL/min/1.73sq m Chronic Kidney Disease: <60 mL/min/1.73sq m Kidney failure: <15 mL/min/1.73sq m eGFR calculated using average adult body mass. Additional eGFR calculator available at: http://www.SpinVox/Intransa_crcl_2012.htm Glucose [Mass/Vol]360 mg/tRVgtn95 - 99 mg/dLBON [facility] MERCY HEALTHPotassium [Moles/Vol]5.1 mmol/L3.7 - 5.3 mmol/LBON [facility] HEALTHSodium [Moles/Vol] 128 mmol/QEay887 - 144 mmol/LBON [facility]CY HEALTHUrea nitrogen (BldV) [Mass/Vol]32 mg/dLHigh6 - 20 mg/dLBON [facility]RS MERCY HEALTHAnion gap [Moles/Vol] 14 mmol/L9 - 17 mmol/LBON [facility] HEALTHCalcium [Mass/Vol]8.2 mg/dLLow8.6 - 10.4 mg/dLBON [facility] HEALTHChloride [Moles/Vol]96 mmol/LLow98 - 107 mmol/LBON [facility] HEALTHCO2 [Moles/Vol]17 mmol/LLow20 - 31 mmol/LB[facility] HEALTHCreatinine [Mass/Vol]1.68 mg/dLHigh0.5 - 0.9 mg/dLBON [facility] HEALTHGFR Pismjvvk81 mL/ppdNvp72 - PINF mL/minB[facility]CY HEALTHGFR Non- Aefyusch41 mL/ejdMlw90 - PINF mL/minBON [facility] HEALTHGFR/1.73 sq M.predicted MDRD (S/P/Bld) [Vol rate/Area]BON SECClearApp [facility]PITALY HEALTHComment on above:Average GFR for 50-59 years old: 93 mL/min/1.73sq m Chronic Kidney Disease: <60 mL/min/1.73sq m Kidney failure: <15 mL/min/1.73sq m eGFR calculated using average adult body mass. Additional eGFR calculator available at: http://www.SpinVox/multiple_crcl_2012.htm Interpretation and review of laboratory resultsAbnormalSENTARA [facility] Potassium [Moles/Vol]4.4 mmol/L3.7 - 5.3 mmol/LBON [facility] CENTERSodium [Moles/Vol]127 mmol/LQhb034 - 144 mmol/LBON [facility] MEDICAL CENTERUrea nitrogen (BldV) [Mass/Vol]33 mg/dLHigh6 - 20 mg/dLBON [facility] MEDICAL CENTERBON [facility] MEDICAL CENTERAnion gap [Moles/Vol]15 mmol/L9 - 17 mmol/LB[facility] Calcium [Mass/Vol]8.5 mg/dLLow8.6 - 10.4 mg/dLBON [facility] MEDICAL CENTERChloride [Moles/Vol]95 mmol/LLow98 - 107 mmol/LBON [facility] MEDICAL CENTERCO2 [Moles/Vol]18 mmol/LLow20 - 31 mmol/LBON [facility] CENTERCreatinine [Mass/Vol]2.11 mg/dL High0.5 - 0.9 mg/dLBON [facility] CENTERGFR Evfjmyrz53 mL/klmYtk98 - PINF mL/minSENTARA HALIFAX REGIONAL HOSPITALGFR Non- Ynzqkbwk97 mL/gjoNlf55 - PINF mL/minSENTARA [facility]IFAX REGIONAL HOSPITALGFR/1.73 sq M.predicted MDRD (S/P/Bld) [Vol rate/Area][facility] HOSPITALComment on above:Average GFR for 50-59 years old: 93 mL/min/1.73sq m Chronic Kidney Disease: <60 mL/min/1.73sq m Kidney failure: <15 mL/min/1.73sq m eGFR calculated using average adult body mass. Additional eGFR calculator available at: http://www.[employer]/multiple_crcl_2012.htm Glucose [Mass/Vol]416 mg/dLCritically high70 - 99 mg/dLB[facility] Interpretation and review of laboratory resultsAbnormalSENTARA [facility] Potassium [Moles/Vol]5.0 mmol/L3.7 - 5.3 mmol/LBON [facility]ICAL CENTERSodium [Moles/Vol]128 mmol/HRfm775 - 144 mmol/LBON [facility] MEDICAL CENTERUrea nitrogen (BldV) [Mass/Vol]38 mg/dLHigh6 - 20 mg/dLBON [facility] MEDICAL CENTERBON [facility] MEDICAL CENTERBasi Metabolic Profon [id number] [Mass/Vol]439 mg/dL Critically scml31-54FtyveMarinHealth Medical CenterComment on above:Performed By: #### ANAX, IFX, PHEP, FKLLC, PE #### [facility] [email or web address] [address] [place] [address] Transfer Man: Bala Skelton MD(cont.)[facility] Comment on above:Result Comment: Average GFR for 50-59 years old: 93 mL/min/1.73sq m Chronic Kidney Disease: <60 mL/min/1.73sq m Kidney failure: <15 mL/min/1.73sq m eGFR calculated using average adult body mass. Additional eGFR calculator available at: http://www.SpinVox/multiple_crcl_2011.htmPerformed By: #### ANAX, IFX, PHEP, FKLLC, PE #### [facility] [email or web address] [address] [place] [address] Transfer Man: Bala Skelton MDAnion gap [Moles/Vol]16 mmol/LNormal9-17T[place]carawas HospitalComment on above:Performed By: #### ANAX, IFX, PHEP, FKLLC, PE #### [facility] [email or web address] [address] [place] [address] Transfer Man: Bala Skelton MDCalcium [Mass/Vol]8.2 mg/dLLow8.6-10.4Tuscarawas HospitalComment on above:Performed By: #### ANAX, IFX, PHEP, FKLLC, PE #### [facility] [email or web address] [address] [place] [address] Transfer Man: Bala Skelton MDChloride [Moles/Vol]95 mmol/LEll90-689KaoqnTuscarawas HospitalComment on above:Performed By: #### ANAX, IFX, PHEP, FKLLC, PE #### [place] [address] Transfer Man: Bala Skelton MDCO2 [Moles/Vol]17 mmol/YPsk48-37SpdggTuscarawas HospitalComment on above:Performed By: #### ANAX, IFX, PHEP, FKLLC, PE #### [place] [address] Transfer Man: SHANNEN Carbonereatinine [Mass/Vol]2.35 mg/dLHigh0.50-0.90 [place] HospitalComment on above:Performed By: #### ANAX, IFX, PHEP, FKLLC, PE #### [place] [address] Transfer Man: MIKE Carbone, Amer27 mL/minLow>60T[facility]carawas HospitalComment on above:Performed By: #### ANAX, IFX, PHEP, FKLLC, PE #### [place] [address] Transfer Man: MIKE Carbone,non Amer22 mL/minLow>60T[facility]caraw[place] HospitalComment on above:Performed By: #### ANAX, IFX, PHEP, FKLLC, PE #### [place] [address] Transfer Man: Bala Skelton MDPotassium [Moles/Vol]5.2 mmol/LNormal3.7-5.3 [place] HospitalComment on above:Performed By: #### ANAX, IFX, PHEP, FKLLC, PE #### [address] [address] Transfer Man: Bala Skelton MDSodium [Moles/Vol]128 mmol/XVxo338-778RaqdyTuscarawas HospitalComment on above:Performed By: #### ANAX, IFX, PHEP, FKLLC, PE #### [facility] [place] [address] Transfer Man: Bala Skelton MDUrea nitrogen [Mass/Vol]37 mg/dLHigh6-20T[place] HospitalComment on above:Performed By: #### ANAX, IFX, PHEP, FKLLC, PE #### [facility] [address] [place] [address] Transfer Man: Bala Skelton [facility]3on [id number] mg/rIKtaq99-596SxtttTuscarawas HospitalComment on above:Performed By: #### ANAX, IFX, PHEP, FKLLC, PE #### [facility] [address] [place] [address] Transfer Man: Bala Skelton [facility] [place] Complementon 72-81-3033Rfvafwmbsc C3209 mg/dL High90 - 180 mg/dLBON SECOU[facility] RCJOBWZ6cj 05-28-4582J743 mg/ePGlye37-36 [place] HospitalComment on above:Performed By: #### ANAX, IFX, PHEP, FKLLC, PE #### [facility] [address] [place] [address] Transfer Man: Bala Skelton [facility] Complementon [id number] C441 mg/dL High10 - 40 mg/dLBON SECOURS Nano Pet ProductsY HEALTHCBC with Auto Differentialon 07-20-2022 Absolute Eos #0.00[facility] HEALTHAbsolute Immature Granulocyte0.07[facility] HEALTHAbsolute Lymph #0.46LowBON SEC[facility]RS MER[facility] HEALTHAbsolute Hayes #0.33[facility] Nano Pet ProductsY HEALTHBasophils (Bld) [#/Vol]0.00 10*3/uLBON SECOURS Nano Pet ProductsY HEALTHBasophils/100 WBC (Bld)0 %0 - 2 %[facility] SECWILL[facility] HEALTH Eosinophils/100 WBC (Bld)0 %Low1 - 4 %BON SECWILLIS[facility] HEALTHHematocrit (Bld) [Volume fraction]33.3 %Low36.3 - 47.1 %BON SEC[facility] MEDICAL CENTERHemoglobin (Bld) [Mass/Vol]11.0 g/dLLow11.9 - 15.1 g/dLBON SECUNIVERSITY H[facility] ST[facility] JOHN MEDICAL CENTERImmature granulocytes/100 WBC (Bld)1 %Actn3QDT [facility] HEALTHInterpretation and review of laboratory resultsAbnormalBON SECUNIVERSITY [facility] JOHN MEDICAL CENTERLymphocytes/100 WBC (Bld)7 %Low24 - 44 %BON [facility]OSPITALH (RBC) [Entitic mass]28.6 pg25.2 - 33.5 pgBON SECSYCAMORE MEDICAL CENTERHC (RBC) [Mass/Vol]33.0 g/dL28.4 - 34.8 g/dL BON [facility]ANT HOSPITALV (RBC) [Entitic vol]86.7 fL82.6 - 102.9 fLBON SECOURS [facility] CENTERMonocytes/100 WBC (Bld)5 %1 - 7 %[facility] CENTERMorphology Bran (Bld) [Interp]NormalBON [facility]ION[facility] MEDICAL CENTERNRBC Automated0.00.0 per 100 WBC [facility] SECWILLIS-[facility] HEALTHPlatelet distribution width (Bld) [Ratio]13.8 %11.8 - 14.4 %BON SECWILLIS[facility] HEALTHPlatelets (Bld) [#/Vol]See Reflexed IPF ResultBON TRUMBULL REGIONAL MEDICAL CENTERRBC (Bld) [#/Vol]3.84 10*6/uLLow3.95 - 5.11 m/uLBON SECUNIVERSITY HOSPITALS ST. JOHN MEDICAL CENTERSegmented neutrophils/100 WBC (Bld)87 %High36 - 66 %[facility] CENTERSegs Absolute5.74B[facility] MED[facility] CENTERWBC (Bld) [#/Vol]6.6 10*3/uLBON SECOURS [facility] HEALTHBON SECWILLIS-[facility] HEALTHAbsolute Eos #0.00B[facility] CENTERAbsolute Immature Granulocyte0.10[facility] HEALTH Absolute Lymph #0.31LowBON SECOURS [facility] HEALTHAbsolute Hayes #0.41B[facility] HEALTHBasophils (Bld) [#/Vol]0.00 10*3/uLBON SECOURS [facility] HEALTH Basophils/100 WBC (Bld)0 %0 - 2 %[facility] HEALTHEosinophils/100 WBC (Bld)0 %Low1 - 4 %BON SECW[facility] HEALTHHematocrit (Bld) [Volume fraction]32.4 %Low36.3 - 47.1 %BON SECWILL[facility] HEALTHHemoglobin (Bld) [Mass/Vol]11.0 g/dLLow 11.9 - 15.1 g/dLBON SECUNIVERSITY [facility] ST[facility] JOHN MEDICAL CENTERImmature granulocytes/100 WBC (Bld)1 % Myiq6WNT [facility] HEALTHInterpretation and review of laboratory results AbnormalBON SECUNIVERSITY [facility] JOHN MEDICAL CENTERLymphocytes/100 WBC (Bld)3 %Low24 - 44 %BON [facility]OSPITALH (RBC) [Entitic mass]29.4 pg25.2 - 33.5 pgBON SECSYCAMORE MEDICAL CENTERHC (RBC) [Mass/Vol]34.0 g/dL28.4 - 34.8 g/dLBON SECSYCAMORE MEDICAL CENTERV (RBC) [Entitic vol]86.6 fL82.6 - 102.9 fLSENTARA [facility]IFAX [facility]IONAL [facility]PITAL Monocytes/100 WBC (Bld)4 %1 - 7 %BON SECWILL[facility] HEALTHMorphology Bran (Bld) [Interp]NormalBON SECWILLIS-KNIGHTON [facility] HEALTHNRBC Automated0.00.0 per 100 WBCBON SECOURS WHITE HOSPITALY HEALTHPlatelet distribution width (Bld) [Ratio]13.6 %11.8 - 14.4 % BON SECASTRIA TOPPENISH HOSPITALY HEALTHPlatelet mean volume (Bld) [Entitic vol]10.4 fL8.1 - 13.5 fLBON SECOURS WHITE HOSPITALY HEALTHPlatelets (Bld) [#/Vol]252 10*3/uLBON SECOURS WHITE HOSPITALY HEALTHRBC (Bld) [#/Vol]3.74 10*6/uLLow3.95 - 5.11 m/uLBON SECUNIVERSITY H[facility] ST[facility] JOHN MEDICAL CENTERSegmented neutrophils/100 WBC (Bld)92 %High36 - 66 %[facility] HEALTHSegs Absolute9.38HighBON SECOURS [facility] HEALTHWBC (Bld) [#/Vol]10.2 10*3/uL [facility] CENTERBON SECOURS [facility] HEALTHAbsolute Eos #0.12B[facility]ITE HOSPITALY [facility] CENTERAbsolute Immature Granulocyte0.12[facility] HEALTHAbsolute Lymph #0.49LowBON SECOURS WHITE HOSPITALY HEALTHAbsolute Hayes #0.00LowBON SECOURS [facility] HEALTHBasophils (Bld) [#/Vol]0.00 10*3/uLBON SECOURS [facility] HEALTHBasophils/100 WBC (Bld)0 %0 - 2 %[facility] SEC[facility] CENTEREosinophils/100 WBC (Bld)1 %1 - 4 % [facility] HOSPITALHematocrit (Bld) [Volume fraction]31.3 %Low36.3 - 47.1 % [facility] HOSPITALHemoglobin (Bld) [Mass/Vol]10.6 g/dLLow11.9 - 15.1 g/dL [facility] HOSPITALImmature granulocytes/100 WBC (Bld)1 %Sefw1GVZSENTARA HALIFAX REGIONAL HOSPITALInterpretation and review of laboratory resultsAbnormalBON TRUMBULL REGIONAL MEDICAL CENTERLymphocytes/100 WBC (Bld)4 %Low24 - 44 %[facility] CENTERH (RBC) [Entitic mass]29.3 pg25.2 - 33.5 pgBON PROTESTANT HOSPITALHC (RBC) [Mass/Vol]33.9 g/dL28.4 - 34.8 g/dLBON SECSYCAMORE MEDICAL CENTERV (RBC) [Entitic vol]86.5 fL82.6 - 102.9 fLBON TRUMBULL REGIONAL MEDICAL CENTERMonocytes/100 WBC (Bld)0 %Low1 - 7 %[facility] HOSPITALMorphology Bran (Bld) [Interp]NormalBON SECUNIVERSITY HOSPITALS ST. JOHN MEDICAL CENTERNRBC Automated0.00.0 per 100 WBCSENTARA HALIFAX REGIONAL HOSPITALPlatelet distribution width (Bld) [Ratio]13.5 %11.8 - 14.4 %[facility] Platelet mean volume (Bld) [Entitic vol]10.2 fL8.1 - 13.5 fLBON [facility] HEALTHPlatelets (Bld) [#/Vol]280 10*3/uLBON TRUMBULL [facility]IONAL MEDICAL CENTERRBC (Bld) [#/Vol]3.62 10*6/uLLow3.95 - 5.11 m/uLSENTARA HALIFAX REGIONAL HOSPITALSegmented neutrophils/100 WBC (Bld)94 %High36 - 66 %[facility] CENTERSegs Absolute 11.57HighBON TRUMBULL REGIONAL MEDICAL CENTERWBC (Bld) [#/Vol]12.3 10*3/uLHighBON [facility]UMBULL REGION[facility] MEDICAL CENTERBON TRUMBULL REGIONAL MEDICAL CENTERCBC with Diffon [id number]. Basophil0.00 k/uLNormal0.0-0.2MMarinHealth Medical CenterComment on above:Performed By: #### ANAX, IFX, PHEP, FKLLC, PE #### [employer] [address] [place] [address] Transfer Man: Simone Carbone.Imm.Granulocyte0.07 k/uLNormal0.00-0.30Tuscarawas HospitalComment on above:Performed By: #### ANAX, IFX, PHEP, FKLLC, PE #### [employer] [address] [place] [address] Transfer Man: Simone Carbone.Neutrophil (Seg)5.74 k/uLNormal1.8-7.7Tuscarawas HospitalComment on above:Performed By: #### ANAX, IFX, PHEP, FKLLC, PE #### [employer] [address] [place] [address] Transfer Man: Bala Skelton MDBasophils/100 WBC (Bld)0 %Normal0-2MMarinHealth Medical CenterComment on above:Performed By: #### ANAX, IFX, PHEP, FKLLC, PE #### [employer] [address] [place], [place] [id number] Transfer Man: Bala Skelton MDEosinophils (Bld) [#/Vol]0.00 10*3/uLNormal 0.0-0.4T[facility]carawas HospitalComment on above:Performed By: #### ANAX, IFX, PHEP, FKLLC, PE #### [address] [address] Transfer Man: Bala Skelton MDEosinophils/100 WBC (Bld)0 %Low1-4T[facility]carawas HospitalComment on above:Performed By: #### ANAX, IFX, PHEP, FKLLC, PE #### [place] [address] Transfer Man: Bala Skelton MDImmature granulocytes/100 WBC (Bld)1 %Qxnv1NnplgTuscarawas HospitalComment on above:Performed By: #### ANAX, IFX, PHEP, FKLLC, PE #### [place] [address] Transfer Man: Tay Carbonemphocytes (Bld) [#/Vol]0.46 10*3/uLLow1.0-4.8 [facility] HospitalComment on above:Performed By: #### ANAX, IFX, PHEP, FKLLC, PE #### [place] [address] Transfer Man: Tay Carbonemphocytes/100 WBC (Bld)7 %Wlz08-56FjqwzTuscarawas HospitalComment on above:Performed By: #### ANAX, IFX, PHEP, FKLLC, PE #### [address] [address] Transfer Man: NORTH Carboneonocytes (Bld) [#/Vol]0.33 10*3/uLNormal0.1-0.8 [facility] HospitalComment on above:Performed By: #### ANAX, IFX, PHEP, FKLLC, PE #### [address] [address] Transfer Man: NORTH Carboneonocytes/100 WBC (Bld)5 %Normal1-7T[facility]carawas HospitalComment on above:Performed By: #### ANAX, IFX, PHEP, FKLLC, PE #### [address] [address] Transfer Man: NORTH Carboneorphology Bran (Bld) [Interp]NormalNormalTuscarawas HospitalComment on above:Performed By: #### ANAX, IFX, PHEP, FKLLC, PE #### [address] [address] Transfer Man: Bala Skelton MDNeutrophil (Seg)87 %Csfh61-48OafihTuscarawas HospitalComment on above:Performed By: #### ANAX, IFX, PHEP, FKLLC, PE #### [address] [address] Transfer Man: Bala Skelton MDErythrocyte distribution width (RBC) [Ratio]13.8 %Osjwcf77.8-14.4T[facility]carawas HospitalComment on above:Performed By: #### ANAX, IFX, PHEP, FKLLC, PE #### [address] [address] Transfer Man: Bala Skelton MDHematocrit (Bld) [Volume fraction]33.3 %Low 36.3-47.1[facility] Medical CenterComment on above:Performed By: #### ANAX, IFX, PHEP, FKLLC, PE #### [address] [address] Transfer Man: Bala Skelton MDHemoglobin (Bld) [Mass/Vol]11.0 g/dLLow11.9-15.1 [place] HospitalComment on above:Performed By: #### ANAX, IFX, PHEP, FKLLC, PE #### [address] [address] Transfer Man: NORTH CarboneCH (RBC) [Entitic mass]28.6 hiSaqpad93.2-33.5 [facility] HospitalComment on above:Performed By: #### ANAX, IFX, PHEP, FKLLC, PE #### [address] [address] Transfer Man: ROQUE CarboneC (RBC) [Mass/Vol]33.0 g/cPDrgjhw01.4-34.8 [facility] HospitalComment on above:Performed By: #### ANAX, IFX, PHEP, FKLLC, PE #### [place] [address] Transfer Man: NORTH CarboneCV (RBC) [Entitic vol]86.7 bFEftgcn42.6-102.9 [facility] HospitalComment on above:Performed By: #### ANAX, IFX, PHEP, FKLLC, PE #### [address] [address] Transfer Man: Bala Skelton MDNRBC Automated0.0 per 100 WBCNormal0.0Tuscarawas HospitalComment on above:Performed By: #### ANAX, IFX, PHEP, FKLLC, PE #### [address] [address] Transfer Man: Olive Carbonetelet CountSee Reflexed IPF ResultNormal 138-453Tuscarawas HospitalComment on above:Performed By: #### ANAX, IFX, PHEP, FKLLC, PE #### [facility] [address] [place] [address] Transfer Man: LIZ Carbone ([facility]) [#/Vol]3.84 10*6/uLLow3.95-5.11T[facility]carawas HospitalComment on above:Performed By: #### ANAX, IFX, PHEP, FKLLC, PE #### [facility] [address] [place] [address] Transfer Man: ANTON Carbone ([facility]) [#/Vol]6.6 10*3/uLNormal3.5-11.3MMarinHealth Medical CenterComment on above:Performed By: #### ANAX, IFX, PHEP, FKLLC, PE #### [facility] [address] [place] [address] Transfer Man: MDAbs. Raf Basophil0.00 k/uLNormal0.0-0.2MMarinHealth Medical CenterComment on above:Performed By: #### ANAX, IFX, PHEP, FKLLC, PE #### [facility] [address] [place] [phone] Transfer Man: MDAbs. RafImm.Granulocyte0.10 k/uLNormal0.00-0.30Tuscarawas HospitalComment on above:Performed By: #### ANAX, IFX, PHEP, FKLLC, PE #### [facility] [address] [place] [phone] Transfer Man: MDAbs. RafNeutrophil (Seg)9.38 k/uLHigh1.8-7.7Tuscarawas HospitalComment on above:Performed By: #### ANAX, IFX, PHEP, FKLLC, PE #### [facility] [address] [place] [address] Transfer Man: Bala Skelton MDBasophils/100 WBC (Bld)0 %Normal0-2[facility] CenterComment on above:Performed By: #### ANAX, IFX, PHEP, FKLLC, PE #### [address] [address] Transfer Man: Bala Skelton MDEosinophils (Bld) [#/Vol]0.00 10*3/uLNormal 0.0-0.4[facility] Medical CenterComment on above:Performed By: #### ANAX, IFX, PHEP, FKLLC, PE #### [address] [address] Transfer Man: Bala Skelton MDEosinophils/100 WBC (Bld)0 %Low1-4Tuscarawas HospitalComment on above:Performed By: #### ANAX, IFX, PHEP, FKLLC, PE #### [address] [address] Transfer Man: Magdiel Carboneture granulocytes/100 WBC (Bld)1 %Hiyu4SbzhmTuscarawas HospitalComment on above:Performed By: #### ANAX, IFX, PHEP, FKLLC, PE #### [address] [address] Transfer Man: Tay Carbonemphocytes (Bld) [#/Vol]0.31 10*3/uLLow1.0-4.8 [facility]caraw[facility] HospitalComment on above:Performed By: #### ANAX, IFX, PHEP, FKLLC, PE #### [address] [address] Transfer Man: Tay Carbonemphocytes/100 WBC (Bld)3 %[id number] HospitalComment on above:Performed By: #### ANAX, IFX, PHEP, FKLLC, PE #### [facility] [address] [place] [address] Transfer Man: Bala Skelton MDMonocytes (Bld) [#/Vol]0.41 10*3/uLNormal0.1-0.8 [facility]caraw[facility] HospitalComment on above:Performed By: #### ANAX, IFX, PHEP, FKLLC, PE #### [facility] [address] [place] [address] Transfer Man: NORTH Carboneonocytes/100 WBC (Bld)4 %Normal1-7Tuscarawas HospitalComment on above:Performed By: #### ANAX, IFX, PHEP, FKLLC, PE #### [address] [address] Transfer Man: NORTH Carboneorphology Bran (Bld) [Interp]NormalNormalTuscarawas HospitalComment on above:Performed By: #### ANAX, IFX, PHEP, FKLLC, PE #### [address] [address] Transfer Man: Bala Skelton MDNeutrophil (Seg)92 %Upuf64-63PqiruTuscarawas HospitalComment on above:Performed By: #### ANAX, IFX, PHEP, FKLLC, PE #### [facility] [address] [place] [address] Transfer Man: Bala Skelton MDErythrocyte distribution width (RBC) [Ratio]13.6 %Jtwvre83.8-14.4T[place]carawas HospitalComment on above:Performed By: #### ANAX, IFX, PHEP, FKLLC, PE #### [facility] [email or web address] [address] [place] [address] Transfer Man: Bala Skelton MDHematocrit (Bld) [Volume fraction]32.4 %Low 36.3-47.1MMarinHealth Medical CenterComment on above:Performed By: #### ANAX, IFX, PHEP, FKLLC, PE #### [address] [address] Transfer Man: Bala Skelton MDHemoglobin (Bld) [Mass/Vol]11.0 g/dLLow11.9-15.1 [place] HospitalComment on above:Performed By: #### ANAX, IFX, PHEP, FKLLC, PE #### [place] [address] Transfer Man: NORTH CarboneCH (RBC) [Entitic mass]29.4 crImqupu07.2-33.5 [place] HospitalComment on above:Performed By: #### ANAX, IFX, PHEP, FKLLC, PE #### [place] [address] Transfer Man: ROQUE CarboneC (RBC) [Mass/Vol]34.0 g/mSMvrgvm79.4-34.8 [place] HospitalComment on above:Performed By: #### ANAX, IFX, PHEP, FKLLC, PE #### [place] [address] Transfer Man: NORTH CarboneCV (RBC) [Entitic vol]86.6 sYPguyvh06.6-102.9 [place] HospitalComment on above:Performed By: #### ANAX, IFX, PHEP, FKLLC, PE #### [address] [address] Transfer Man: Bala Skelton MDNRBC Automated0.0 per 100 WBCNormal0.0T[place]carawas HospitalComment on above:Performed By: #### ANAX, IFX, PHEP, FKLLC, PE #### [facility] [address] [place] [address] Transfer Man: Elie Carbone mean volume (Bld) [Entitic vol]10.4 fL Normal8.1-13.5T[place]carawas HospitalComment on above:Performed By: #### ANAX, IFX, PHEP, FKLLC, PE #### [facility] [address] [place] [address] Transfer Man: Emil Carbone (Bld) [#/Vol]252 10*3/mQZgikvn733-234 [place] HospitalComment on above:Performed By: #### ANAX, IFX, PHEP, FKLLC, PE #### [facility] [email or web address] [address] [place] [address] Transfer Man: LIZ Carbone (Bld) [#/Vol]3.74 10*6/uLLow3.95-5.11T[place]caraw[place] HospitalComment on above:Performed By: #### ANAX, IFX, PHEP, FKLLC, PE #### [facility] [email or web address] [address] [place] [address] Transfer Man: ANTON Carbone (Bld) [#/Vol]10.2 10*3/uLNormal3.5-11.3MMarinHealth Medical CenterComment on above:Performed By: #### ANAX, IFX, PHEP, FKLLC, PE #### [facility] [email or web address] [address] [place] [address] Transfer Man: Simone Carbone. Basophil0.00 k/uLNormal0.0-0.2MMarinHealth Medical CenterComment on above:Performed By: #### ANAX, IFX, PHEP, FKLLC, PE #### [facility] [address] [place] [address] Transfer Man: MDAbs. RafImm.Granulocyte0.12 k/uLNormal0.00-0.30T[place]carawas HospitalComment on above:Performed By: #### ANAX, IFX, PHEP, FKLLC, PE #### [facility] [address] [place] [address] Transfer Man: Simone Carbone.Neutrophil (Seg)11.57 k/uLHigh1.8-7.7T[place]carawas HospitalComment on above:Performed By: #### ANAX, IFX, PHEP, FKLLC, PE #### [facility] [address] [place] [address] Transfer Man: Bala Skelton MDBasophils/100 WBC (Bld)0 %Normal0-2MMarinHealth Medical CenterComment on above:Performed By: #### ANAX, IFX, PHEP, FKLLC, PE #### [facility] [address] [place] [address] Transfer Man: SONIA Carboneosinophils (Bld) [#/Vol]0.12 10*3/uLNormal 0.0-0.4T[place]carawas HospitalComment on above:Performed By: #### ANAX, IFX, PHEP, FKLLC, PE #### [facility] [address] [place] [address] Transfer Man: SONIA Carboneosinophils/100 WBC (Bld)1 %Normal1-4T[place]carawas HospitalComment on above:Performed By: #### ANAX, IFX, PHEP, FKLLC, PE #### [facility] [email or web address] [address] [place] [address] Transfer Man: Bala Madoff, MDImmature granulocytes/100 WBC (Bld)1 %Qfmp8TyppzTuscarawas HospitalComment on above:Performed By: #### ANAX, IFX, PHEP, FKLLC, PE #### [address] [address] Transfer Man: Bala Skelton MDLymphocytes (Bld) [#/Vol]0.49 10*3/uLLow1.0-4.8 [place] HospitalComment on above:Performed By: #### ANAX, IFX, PHEP, FKLLC, PE #### [address] [address] Transfer Man: Bala Skelton MDLymphocytes/100 WBC (Bld)4 %Noa71-43EjuniTuscarawas HospitalComment on above:Performed By: #### ANAX, IFX, PHEP, FKLLC, PE #### [place] [address] Transfer Man: NORTH Carboneonocytes (Bld) [#/Vol]0.00 10*3/uLLow0.1-0.8 [place] HospitalComment on above:Performed By: #### ANAX, IFX, PHEP, FKLLC, PE #### [address] [address] Transfer Man: NORTH Carboneonocytes/100 WBC (Bld)0 %Low1-7T[place]carawas HospitalComment on above:Performed By: #### ANAX, IFX, PHEP, FKLLC, PE #### [address] [address] Transfer Man: NORTH Carboneorphology Bran (Bld) [Interp]NormalNormalTuscarawas HospitalComment on above:Performed By: #### ANAX, IFX, PHEP, FKLLC, PE #### [facility] [address] [place] [address] Transfer Man: Bala Skelton MDNeutrophil (Seg)94 %Kgnf30-92VfdliTuscarawas HospitalComment on above:Performed By: #### ANAX, IFX, PHEP, FKLLC, PE #### [address] [address] Transfer Man: Bala Skelton MDErythrocyte distribution width (RBC) [Ratio]13.5 %Pqhkxv04.8-14.4T[place]carawas HospitalComment on above:Performed By: #### ANAX, IFX, PHEP, FKLLC, PE #### [address] [address] Transfer Man: Bala Skelton MDHematocrit (Bld) [Volume fraction]31.3 %Low 36.3-47.1MMarinHealth Medical CenterComment on above:Performed By: #### ANAX, IFX, PHEP, FKLLC, PE #### [address] [address] Transfer Man: Bala Skelton MDHemoglobin (Bld) [Mass/Vol]10.6 g/dLLow11.9-15.1 [place] HospitalComment on above:Performed By: #### ANAX, IFX, PHEP, FKLLC, PE #### [address] [address] Transfer Man: NORTH CarboneCH (RBC) [Entitic mass]29.3 nkTyrwiw16.2-33.5 [place] HospitalComment on above:Performed By: #### ANAX, IFX, PHEP, FKLLC, PE #### [address] [address] Transfer Man: Bala Madoff, MDMCHC (RBC) [Mass/Vol]33.9 g/fFGrmobf40.4-34.8 [place] HospitalComment on above:Performed By: #### ANAX, IFX, PHEP, FKLLC, PE #### [address] [address] Transfer Man: NORTH CarboneCV (RBC) [Entitic vol]86.5 lYAwyccq87.6-102.9 [place] HospitalComment on above:Performed By: #### ANAX, IFX, PHEP, FKLLC, PE #### [place] [address] Transfer Man: SHIRLEY Carbone Automated0.0 per 100 WBCNormal0.0Tuscarawas HospitalComment on above:Performed By: #### ANAX, IFX, PHEP, FKLLC, PE #### [place] [address] Transfer Man: Olive Carboneteoctavia mean volume (Bld) [Entitic vol]10.2 fL Normal8.1-13.5Tuscarawas HospitalComment on above:Performed By: #### ANAX, IFX, PHEP, FKLLC, PE #### [place] [address] Transfer Man: Olive Carbonetenicho (Bld) [#/Vol]280 10*3/rXLdjvqd626-076 [place] HospitalComment on above:Performed By: #### ANAX, IFX, PHEP, FKLLC, PE #### [place] [address] Transfer Man: Bala Skelton MDRBC (Bld) [#/Vol]3.62 10*6/uLLow3.95-5.11[facility]umpter Medical CenterComment on above:Performed By: #### ANAX, IFX, PHEP, FKLLC, PE #### [facility] [address] [place], [place] [phone] Transfer Man: ANTON Carbone ([facility]) [#/Vol]12.3 10*3/uLHigh3.5-11.3[facility] Medical CenterComment on above:Performed By: #### ANAX, IFX, PHEP, FKLLC, PE #### [facility] [address] [place], [place] [phone] Transfer Man: SHANNEN CarboneREATININE, RANDOM URINEon 67-58-3768Smsvqiafix, Ur67.5 mg/dL28 - 217 mg/dLBON TRUMBULL REGIONAL MEDICAL CENTERBON [facility] CULTURE URINEon 41-54-1206KULGXSV URINEIsolate 1 Escherichia coli >100,000 cfu/mL of ORGANISM [...] <=0.12 S F Nitrofurantoin <=16 S F Trimethoprim/Sulfamethoxazole <=20 S FNormalMercy Health Anderson HospitalComment on above:Performed By: #### VERNA REGAN #### [facility] [address] [place] [address] Dr. Delmer ReaChloride, Random Urineon 78-49-7866Ppanmloe, Ur50 mmol/LBON TRUMBULL REGIONAL MEDICAL CENTERComment on above:No normal range established.Chloride,Random Uron 67-63-9422Ypweftqv [Moles/Vol]50 mmol/LNormalMerBarstow Community HospitalComment on above:Result Comment: No normal range established.Performed By: #### ANAX, IFX, PHEP, FKLLC, PE #### [facility] [address] [place] [address] Transfer Man: SHANNEN Carbonereatinine, Random Urineon 33-61-6436Uudrxlrwgu, Ur76.5 mg/dL28 - 217 mg/dLBON SECASTRIA TOPPENISH HOSPITALAdjudica HEALTHCreatinine,Random Uron 46-40-3306Wzqxtiggat [Mass/Vol]67.5 mg/wQUkeyeb66.0-217.0Tuscarawas HospitalComment on above:Performed By: #### BC #### [facility] [address] [place] [address] Transfer Man: SHANNEN Carbonereatinine [Mass/Vol]76.5 mg/fGRycspw43.0-217.0 [place] HospitalComment on above:Performed By: #### ANAX, IFX, PHEP, FKLLC, PE #### [facility] [address] [place] [address] Transfer Man: LILIANA Carbone 12 LeadOrdered By: Julien Domínguez on 68-25-0033Xykhye Vcwu063QBNAXP SECBriefCamY HEALTH Work Phone: P [id number] SECAnita Margarita HEALTH Work Phone: [phone]-R Dcaqddyz519 msBON SECOURS Nano Pet ProductsY HEALTH Work Phone: [phone]-T Ydzvwgbw869 msBON SECOURS [facility] ProductsY [facility] Work Phone: [phone] Ffzfuzyy84 msBON SECOURS [employer] [facility] [employer] Work Phone: [phone] Calculation (Dakota)454 msBON SECOURS [facility] ProductsY [facility] Work Phone: R Pigeon-15degreesBON SECBriefCamY HEALTH Work Phone: T [id number] SECBriefCamY HE[facility] Work Phone: Ventricular [id number] SECOURS [employer]Y [facility] Work Phone: BON SECClearApp [employer] Work Phone: EKG 12 Leadon 59-93-4163Nsvau tachycardia Septal infarct (cited on or before 20-JUL-2022) Abnormal ECG When compared with ECG of 20-JUL-2022 05:40, No significant change was foundMHPN Julien Howell MD - 07/20/2022 Sinus tachycardia Septal infarct (cited on or before 20-JUL-2022) Abnormal ECG When compared with ECG of 20-JUL-2022 05:40, No significant change was found [facility] [employer] [facility]ITALUnder[facility] Phone: Free Moffat + Lambdaon [phone] Moffat Lt Chains 2.91 mg/dLHigh0.37-1.94Tuscarawas HospitalComment on above: Performed By: #### ANAX, IFX, PHEP, FKLLC, PE #### [employer] [address] [place] [address] [phone] Transfer Man: Bala Skelton MDFredmar Moffat/Lambda Rat1.86Gxvf9.26-1.65T[facility]carawas HospitalComment on above:Performed By: #### ANAX, IFX, PHEP, FKLLC, PE #### [facility] [address] [place] [address] Transfer Man: Maria Guadalupe Carbone Lambda Lt Chains1.74 mg/dLNormal0.57-2.63 [place] HospitalComment on above:Performed By: #### ANAX, IFX, PHEP, FKLLC, PE #### [facility] [address] [place] [address] Transfer Man: Janae Carbone Platelet Fractionon 58-34-9938Rkhslcgp, FluorescencePlatelet clumps present, count appears adequate.[facility] DragonflySENTARA HALIFAX REGIONAL HOSPITALKappa/Lambda Quantitative Free Light Chains, Serum on 08-16-8767Dmkn Moffat/Lambda Ratio1.08Pcdd0.26 - 1.65[facility] Interpretation and review of laboratory resultsAbnormHospital Corporation of America Moffat Free Light Chains QNT2.91 mg/dLHigh0.37 - 1.94 mg/dLBON TRUMBULL REGIONAL MEDICAL CENTERLambda Free Light Chains QNT1.74 mg/dL0.57 - 2.63 mg/dLBON SANFORD ABERDEEN MEDICAL CENTERLactate, Sepsison 55-75-6095Xphddd Acid,Sep Wbld 3.8 mmol/LHigh0.5-1.9Tuscarawas HospitalComment on above:Performed By: #### BC #### [employer] [address] [place], [place] [phone] Transfer Man: Bala Skelton MDInterpretation and review of laboratory results AbnormalSENTARA HALIFAX REGIONAL HOSPITALLactic Acid, Sepsis, Whole Blood3.8 mmol/LHigh 0.5 - 1.9 mmol/LBON SANFORD ABERDEEN MEDICAL CENTERLactic Acidon 80-52-8499Chimdh Acid,Whole Bl2.0 mmol/LNormal0.7-2.1MercKaiser Foundation HospitalComment on above:Performed By: #### BC #### [employer] [address] [place], [place] [phone] Transfer Man: Bala Skelton MDLactic Acid, Whole Blood2.0 mmol/L0.7 - 2.1 mmol/LBON SANFORD ABERDEEN MEDICAL CENTERNo Panel Informationon 95-63-7492DLS [facility] MEDICAL CENTERInterpretation and review of laboratory resultsAbnormalSENTARA VIRGINIA BEACH GENERAL HOSPITALPLT, Immature Fract.on 15-38-2834Yclkdnhx, Fluoresc.Platelet clumps present, count appears adequate.Yeloma744-230EoxviTuscarawas HospitalComment on above:Performed By: #### ANAX, IFX, PHEP, FKLLC, PE #### [employer] [address] [place] [address] [phone] Transfer Man: EDUARDO CarboneOC Glucose Fingerstickon 32-56-9343Qsfgutv [Mass/Vol]145 mg/gINpps96 - 105 mg/dLBON [facility] HEALTHInterpretation and review of laboratory resultsAbnormalSENTARA VIRGINIA BEACH GENERAL HOSPITALGlucose [Mass/Vol]231 mg/cYQdoh82 - 105 mg/dLBON [facility] HEALTH Interpretation and review of laboratory resultsAbnormSentara Halifax Regional HospitalGlucose [Mass/Vol]393 mg/kAZqgt01 - 105 mg/dLBON [facility] HEALTHInterpretation and review of laboratory resultsAbnormalSENTARA VIRGINIA BEACH GENERAL HOSPITALGlucose [Mass/Vol]405 mg/dLCritically high65 - 105 mg/dLBON KINDRED [facility]OSPITAL HEALTHComment on above:Critical Noted Interpretation and review of laboratory resultsAbnormSentara Halifax Regional HospitalGlucose [Mass/Vol]375 mg/iRMpmk29 - 105 mg/dLBON [facility] HEALTHInterpretation and review of laboratory resultsAbnormalSENTARA VIRGINIA BEACH GENERAL HOSPITALGlucose [Mass/Vol]415 mg/dLCritically high65 - 105 mg/dLBON [facility]ITAL HEALTHInterpretation and review of laboratory resultsAbnoStoneSprings Hospital Center HEALTHProcalcitoninon 19-63-0502Mitwupogwxhsr56.54 ng/mLHigh<0.09[facility] Comment on above:Result Comment: Suspected Sepsis: <0.50 ng/mL Low likelihood [...] entered into the Change in Procalcitonin Calculator (www.wktikn-nuo-fcunhnjckz.com) to determine the patient's Mortality Risk Prognosis In healthy neonates, plasma Procalcitonin (PCT) concentrations increase gradually after , reaching peak values at about 24 hours of age then decrease to normal values below 0.5 ng/mL by 48-72 hours of age.Performed By: #### ANAX, IFX, PHEP, FKLLC, PE #### [facility] [facility] [place] [address] Transfer Man: Bala Skelton MDInterpretation and review of laboratory results AbnormalSENTARA HALIFAX REGIONAL HOSPITALProcalcitonin48.54 ng/mLHighNINF - 0.09 ng/mLSENTARA HALIFAX REGIONAL HOSPITALComment on above: Suspected Sepsis: <0.50 ng/mL Low likelihood of sepsis. 0.50-2.00 ng/mL Increased likelihood of sepsis. Antibiotics encouraged. >2.00 ng/mL High risk of sepsis/shock. Antibiotics strongly encouraged. Suspected Lower Resp Tract Infections: <0.24 ng/mL Low likelihood of bacterial infection. >0.24 ng/mL Increased likelihood of bacterial infection. Antibiotics encouraged. With successful antibiotic therapy, PCT levels should decrease rapidly. (Half- life of 24 to 36 hours.) Procalcitonin values from samples collected within the first 6 hours of systemic infection may still be low. Retesting may be indicated. Values from day 1 and day 4 can be entered into the Change in Procalcitonin Calculator (www.okxrkw-qox-fbisyvwlgf.com) to determine the patient's Mortality Risk Prognosis In healthy neonates, plasma Procalcitonin (PCT) concentrations increase gradually after , reaching peak values at about 24 hours of age then decrease to normal values below 0.5 ng/mL by 48-72 hours of age. SENT[facility] HALIFAX REGIONAL HOSPITALProt. Electroph, Blon 69-19-5793Xzpuaqt [Mass/Vol]6.3 g/dLLow6.4-8.3[facility] Medical CenterComment on above:Performed By: #### ANAX, IFX, PHEP, FKLLC, PE #### [employer] [facility] [place] [address] Transfer Man: EDUARDO Carbonerot. Electrophoresis, Uron 90-99-4407Vsbi of Specimen.URINENoTriHealth McCullough-Hyde Memorial HospitalComment on above:Performed By: #### ANAX, IFX, PHEP, FKLLC, PE #### [employer] [address] [place] [address] [phone] Transfer Man: EDUARDO Carbonerotein / creatinine ratio, urineon 07-20-2022 Creatinine, Ur75.7 mg/dL28 - 217 mg/dLBON TRUMBULL REGIONAL MEDICAL CENTERInterpretation and review of laboratory resultsAbnormalSENTARA HALIFAX REGIONAL HOSPITALProtein (U) [Mass/Vol]145 mg/dLBON TRUMBULL REGIONAL MEDICAL CENTERCommymichigan medical center clare on above:No normal range established.Urine Total Protein Creatinine Ratio1.93Qgsn2 - 0.2BON [facility]FORD ABERDEEN MEDICAL CENTERProtein, urine, randomon 42-86-6760Heccdmz (U) [Mass/Vol]144 mg/dLBINOVA CHILDREN'S HOSPITALComment on above:No normal range established.Protein,Tot,Peel Uron 44-78-0295Dzbpmeivwr [Mass/Vol]75.7 mg/dL Ocbycx64.0-217.0Tuscarawas HospitalComment on above:Performed By: #### ANAX, IFX, PHEP, FKLLC, PE #### [employer] [address] [place] [address] [phone] Transfer Man: Sharon Carbone Prot. Conc.145 mg/dLHolmes County Joel Pomerene Memorial HospitalComment on above:Result Comment: No normal range established. Performed By: #### ANAX, IFX, PHEP, FKLLC, PE #### [employer] [address] [place] [address] [phone] Transfer Man: Sharon Carbone Prot. Conc.144 mg/dLHolmes County Joel Pomerene Memorial HospitalComment on above:Result Comment: No normal range established. Performed By: #### ANAX, IFX, PHEP, FKLLC, PE #### [employer] [address] [place] [address] [phone] Transfer Man: Bala Skelton MDTP/Cre Ratio1.83Dzmo1.00-0.20Tuscarawas HospitalComment on above:Performed By: #### ANAX, IFX, PHEP, FKLLC, PE #### [facility] HospitalNanosolar [address] [place] [address] [phone] Transfer Man: ATIF CarboneODIUM, URINE, RANDOMon 71-46-9759Snucwp (U) [Moles/Vol]mmol/Lmmol/LBON TRUMBULL REGIONAL MEDICAL CENTERComment on above:No normal range established.BON TRUMB[facility] REGIONAL MEDICAL CENTERSodium, Random Uron 32-17-7873Un Conc. Urine <20NormalTuscarawas HospitalComment on above:Result Comment: No normal range established.Performed By: #### BC #### [facility] [email or web address] [address] [place] [address] [phone] Transfer Man: ATIF Carboneodium (U) [Moles/Vol]26 mmol/LNormalTuscarawas HospitalComment on above:Result Comment: No normal range established.Performed By: #### ANAX, IFX, PHEP, FKLLC, PE #### [facility] [email or web address] [address] [place] [address] Transfer Man: ATIF Carboneodium, urine, randomon 99-02-6961Lxkixv (U) [Moles/Vol]26 mmol/LBON TRUMBULL REGIONAL MEDICAL CENTERCommymichigan medical center clare on above:No normal range established.US RETROPERITONEAL LIMITEDon 26-05-8183ZC RETROPERITONEAL LIMITED EXAMINATION: ULTRASOUND OF THE KIDNEYS [...] Signed by: Femi Enamorado MD 07/20/22 Final resultNormalMercy Shasta Regional Medical Center1. Possible nephrostomy at the lower pole left kidney. Correlate with any recent instrumentation. 2. Equivocal dilatation of the upper pole left kidney. No overt hydronephrosis. 3. 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 RECOMMENDATIONS: Unavailable [facility] CONSOLIDATEDEXAMINATION: ULTRASOUND OF THE KIDNEYS 07/20/2022 9:31 am [...] nephrostomy at the lower pole left kidney. [facility] Femi Wagner MD - 07/20/2022 EXAMINATION: ULTRASOUND OF THE [...] involving the left renal hilum. RECOMMENDATIONS: Unavailable [employer] Phone: radiology Study observation (narrative)[employer] Phone: US RETROPERITONEAL LIMITEDOrdered By: Femi Fei on 65-04-0407TQH [employer] Phone: Urinalysis w/ Microon 95-33-8823Aeplzjhkim cells LM Ql (Urine sed)0 TO 0Iohdwl0-8HnnsjTuscarawas HospitalComment on above: Performed By: #### ANAX, IFX, PHEP, FKLLC, PE #### [facility] [address] [place] [address] Transfer Man: Namrata Carbone RBC'sTOO NUMEROUS TO COUNTNormal0-2[facility] Medical CenterComment on above:Performed By: #### ANAX, IFX, PHEP, FKLLC, PE #### [facility] [address] [place], [place] [phone] Transfer Man: Namrata Carbone WBC's10 TO 47Dacjfb2-3KzdmgTuscarawas HospitalComment on above:Performed By: #### ANAX, IFX, PHEP, FKLLC, PE #### [facility] [address] [place] [address] [phone] Transfer Man: Bala Skelton MDBilirubin, SemiQt,UrNegativeNormalNEGMerBarstow Community HospitalComment on above:Performed By: #### ANAX, IFX, PHEP, FKLLC, PE #### [facility] [address] [place] [address] Transfer Man: Manny Carbone, UrineLARGEAbnormalNEGTuscarawas HospitalComment on above:Performed By: #### ANAX, IFX, PHEP, FKLLC, PE #### [facility] [address] [place] [address] Transfer Man: Susan Carbonerity (U)CloudyAbnormalCLEARMercKaiser Foundation HospitalComment on above:Performed By: #### ANAX, IFX, PHEP, FKLLC, PE #### [facility] [address] [address] Transfer Man: SHANNEN Carboneolor (U)OrangeAbnormalYELMerBarstow Community HospitalComment on above:Result Comment: INTERPRET WITH CAUTION DUE TO INTENSE COLOR OF URINE.Performed By: #### ANAX, IFX, PHEP, FKLLC, PE #### [facility] [address] [place] [address] Transfer Man: Bala Skelton MDGlucose Ql (U)3+AbnormalNEGMerBarstow Community HospitalComment on above:Performed By: #### ANAX, IFX, PHEP, FKLLC, PE #### [facility] [address] [place] [address] Transfer Man: Bala Skelton MDKetones Ql (U)NegativeNormalNEGMerBarstow Community HospitalComment on above:Performed By: #### ANAX, IFX, PHEP, FKLLC, PE #### [facility] [address] [place] [address] Transfer Man: Bala Skelton MDLeukocyte esterase Test strip Ql (U)MODERATE AbnormalNEGTuscarawas HospitalComment on above:Performed By: #### ANAX, IFX, PHEP, FKLLC, PE #### [facility] [address] [place] [address] Transfer Man: Arthur Carbonetrite,UrNegativeNormalNEGTuscarawas HospitalComment on above:Performed By: #### ANAX, IFX, PHEP, FKLLC, PE #### [facility] [address] [place] [address] Transfer Man: EDUARDO Carbone,Ur5.6Zdfwce0.0-8.0Tuscarawas HospitalComment on above:Performed By: #### ANAX, IFX, PHEP, FKLLC, PE #### [facility] [address] [place] [address] Transfer Man: Magdy Carbone Ql (U)2+AbnormalNEGTuscarawas HospitalComment on above:Performed By: #### ANAX, IFX, PHEP, FKLLC, PE #### [facility] [address] [place] [address] Transfer Man: ATIF Carbonepec. [place],Ur1.510Ptlisf2.005-1.030Tuscarawas HospitalComment on above:Performed By: #### ANAX, IFX, PHEP, FKLLC, PE #### [facility] [address] [place] [address] Transfer Man: Tyroen Carbone,UrNormalNormalNORMTuscarawas HospitalComment on above:Performed By: #### ANAX, IFX, PHEP, FKLLC, PE #### [facility] [address] [place] [address] Transfer Man: Bala Skelton MDUrinalysis with Microscopicon 07-20-2022 Bilirubin UrineNegativeNEGATIVEBON SECOURS MERCY HEALTHColor, UAOrangeAbnormal YellowBON SECOURS MERCY HEALTHComment on above:INTERPRET WITH CAUTION DUE TO INTENSE COLOR OF URINE.Epithelial Cells UA0 TO 2B[facility] MERCY HEALTHGlucose, Ur3+AbnormalNEGATIVEBON SECOURS MERCY HEALTHInterpretation and review of laboratory resultsAbnormalBON SECOURS MERCY HEALTHKetones Ql (U)NegativeNEGATIVE [facility] HEALTHLeukocyte esterase Test strip Ql (U)MODERATEAbnormal NEGATIVEBON SECOURS MERCY HEALTHNitrite, UrineNegativeNEGATIVEBON SECOURS MERCY HEALTHpH, UA5.05 - 8B[facility] HEALTHProtein, UA2+AbnormalNEGATIVEBON SECOURS MERCY HEALTHRBC, UATOO NUMEROUS TO COUNTBON SECOURS MERCY HEALTHSpecific [place], UA1.0221.005 - 1.03B[facility] HEALTHTurbidity UACloudyAbnormal ClearBON SECOURS MERCY HEALTHUrine HgbLARGEAbnormalNEGATIVEBON SECOURS MERCY HEALTHUrobilinogen, UrineNormalNormalBON SECOURS MERCY HEALTHWBC, UA10 TO 20B[facility] MERCY HEALTHBON SECOURS MERCY HEALTHVenous Blood Gaseson 38-85-6142Rket Temp.37.0NormOhioHealth Berger HospitalComment on above:Performed By: #### VBG #### [employer] [address] [place] [address]67 Transfer Man: Derek Carbone Hgb1.4 %Normal0-5Tuscarawas HospitalComment on above:Result Comment: Reference Range: Non-Smokers 0-2% Average Smoker 2-4% Heavy Smoker <10%Performed By: #### VBG #### [employer] [address] [place] [address] 186[address] Transfer Man: Bala Skelton MDFIO2INFORMATION NOT Peace Harbor HospitalComment on above:Performed By: #### VBG #### [employer] [address] [place] [address] 36843 Transfer Man: Bala Skelton MDHCO3 (Bld) [Moles/Vol]19.6 mmol/JZig85-79YflljTuscarawas HospitalComment on above:Performed By: #### VBG #### [address] [address] Transfer Man: Bala Skelton MDNegative Base Excess5.6 mmol/LHigh0.0-2.0Tuscarawas HospitalComment on above:Performed By: #### VBG #### [address] [address] Transfer Man: Bala Skelton MDOxygen (Bld) [Partial pressure]36.9 mm[Hg]Normal 30-50Tuscarawas HospitalComment on above:Performed By: #### VBG #### [address] [address] Transfer Man: Bala Skelton MDOxygen saturation in Blood74.4 %Iugodf86.0-85.0 Tuscarawas HospitalComment on above:Performed By: #### VBG #### [address] [address] Transfer Man: Eduardo CarboneCO239.2Maaskm07-15CdlgpTuscarawas HospitalComment on above:Performed By: #### VBG #### [address] [address] Transfer Man: Eduardo Carbone (Bld)7.316 [pH]Low7.320-7.420Tuscarawas HospitalComment on above:Performed By: #### VBG #### [address] [address] Transfer Man: SUSANA Carbone CHEST PORTABLEon [id number] CHEST PORTABLE EXAMINATION: ONE X-RAY VIEW OF [...] Signed by: Ricarda Orozco DO 07/20/22 Final resultNormalMercy Shasta Regional Medical Center1. Mild vascular congestion. 2. Minimal patchy opacities at the lung bases, possibly related to atelectasis. No dense airspace consolidation. [facility] RIS CONSOLIDATEDEXAMINATION: ONE X-RAY VIEW OF THE CHEST 07/20/2022 6:31 am COMPARISON: None. HISTORY: ORDERING SYSTEM PROVIDED HISTORY: consolidation TECHNOLOGIST PROVIDED HISTORY: Consolidation FINDINGS: Heart size is mildly prominent, and there is mild vascular congestion. There are minimal patchy opacities at the lung bases, which may be related to atelectasis. No dense airspace consolidation. No pneumothorax or pleural effusion. [facility] RIS CONSOLIDATEDRicarda Orozco DO - 07/20/2022 EXAMINATION: ONE X-RAY [...] related to atelectasis. No dense airspace consolidation. [employer] Phone: radiology Study observation (narrative)[employer] Phone: XR CHEST PORTABLEOrdered By: Ricarda Orozco on [id number] [employer] Phone: Basic Metab w/rfx MGon 07-19-2022(cont.)NormalTuscarawas HospitalComment on above:Result Comment: Average GFR for 50-59 years old: 93 mL/min/1.73sq m Chronic Kidney Disease: <60 mL/min/1.73sq m Kidney failure: <15 mL/min/1.73sq m eGFR calculated using average adult body mass. Additional eGFR calculator available at: http://www.[employer]/multiple_crcl_2012.htmPerformed By: #### BMPX, CDP #### [employer] [address] [place] [address] 58[address] Transfer Man: Bala Skelton MDAnion gap [Moles/Vol]14 mmol/LNormal9-17Tuscarawas HospitalComment on above:Performed By: #### BMPX, CDP #### [employer] [address] [place] [address] 9[address] Transfer Man: SHANNEN Carbonealcium [Mass/Vol]8.3 mg/dLLow8.6-10.4Tuscarawas HospitalComment on above:Performed By: #### BMPX, CDP #### [facility] HospitalN[facility] [address] [place] [address] Transfer Man: SHANNEN Carbonehloride [Moles/Vol]98 mmol/ZPjfdak78-853HzyvvTuscarawas HospitalComment on above:Performed By: #### BMPX, CDP #### [facility] [employer] [address] [place] [address] Transfer Man: Bala Skelton MDCO2 [Moles/Vol]19 mmol/GRml83-58OqaghTuscarawas HospitalComment on above:Performed By: #### BMPX, CDP #### [facility] [employer] [address] [place] [address]79 Transfer Man: SHANNEN Carbonereatinine [Mass/Vol]1.71 mg/dLHigh0.50-0.90 Tuscarawas HospitalComment on above:Performed By: #### BMPX, CDP #### [facility] [address] [place] [address] 419[address] Transfer Man: Bala Skelton MDGFR, Amer38 mL/minLow>60MerBarstow Community HospitalComment on above:Performed By: #### BMPX, CDP #### [facility] [address] [place] [address]34 Transfer Man: Bala Skelton MDGFR,non Amer32 mL/minLow>60Tuscarawas HospitalComment on above:Performed By: #### BMPX, CDP #### [facility] [address] [place] [address] 84706 Transfer Man: Bala Skelton MDGlucose [Mass/Vol]263 mg/iKLkwi29-19BmqidMarinHealth Medical CenterComment on above:Performed By: #### BMPX, CDP #### [facility] [address] [place] [address] 7[address] Transfer Man: EDUARDO Carboneotassium [Moles/Vol]4.0 mmol/LNormal3.7-5.3 Tuscar[place]as HospitalComment on above:Performed By: #### BMPX, CDP #### [address] [address] Transfer Man: Bala Skelton MDSodium [Moles/Vol]131 mmol/ASla925-463PqiftTuscarawas HospitalComment on above:Performed By: #### BMPX, CDP #### [facility] [address] [place] [address] Transfer Man: Bala Skelton MDUrea nitrogen [Mass/Vol]38 mg/dLHigh6-20Tuscarawas HospitalComment on above:Performed By: #### BMPX, CDP #### [facility] [address] [place] [address] Transfer Man: Bala Skelton MDWindham [facility] Metabolic Panel w/ Reflex to MGon [id number] gap [Moles/Vol]14 mmol/L9 - 17 mmol/LBON [facility] Sub10 Systems Calcium [Mass/Vol]8.3 mg/dLLow8.6 - 10.4 mg/dLBON SECASTRIA TOPPENISH HOSPITALAdjudica [facility] CENTERChloride [Moles/Vol]98 mmol/L98 - 107 mmol/LBON [facility] HOSPITALAdjudica [facility]ICAL CENTERCO2 [Moles/Vol]19 mmol/LLow20 - 31 mmol/LBON [facility] CENTERCreatinine [Mass/Vol]1.71 mg/dL High0.5 - 0.9 mg/dLBON [facility] TransPharma MedicalGFR Iwydlxqd41 mL/jwoCvz39 - PINF mL/minCARILION TA[facility]WELL [facility] [employer] [facility] CENTERGFR Non- Wkiqeefz59 mL/fvqFxo93 - PINF mL/minBON COPPER SPRINGS HOSPITALFreedom Basketball LeagueGFR/1.73 sq M.predicted MDRD (S/P/Bld) [Vol rate/Area]BON [facility] MEDICAL CENTERComment on above:Average GFR for 50-59 years old: 93 mL/min/1.73sq m Chronic Kidney Disease: <60 mL/min/1.73sq m Kidney failure: <15 mL/min/1.73sq m eGFR calculated using average adult body mass. Additional eGFR calculator available at: http://www.[employer]/multiple_crcl_2012.htm Glucose [Mass/Vol]263 mg/oQSfpl99 - 99 mg/dLBON [facility] TransPharma Medical Interpretation and review of laboratory resultsAbnormalBON [facility] Potassium [Moles/Vol]4.0 mmol/L3.7 - 5.3 mmol/LBON [facility] MEDICAL CENTERSodium [Moles/Vol]131 mmol/ZNos424 - 144 mmol/LBON ARRO[facility]AN[facility] COMMUNITY HOSPITALUnderstoryUrea nitrogen (BldV) [Mass/Vol]38 mg/dLHigh6 - 20 mg/dLBON [facility]UM[facility]ION[facility] MEDICAL CENTERBON TRUMBULL REGIONAL MEDICAL CENTERCBC with Auto Differentialon [id number] Eos #0.16BON SECFreedom Basketball LeagueAbsolute Immature Granulocyte0.05BON SECOURS Sub10 SystemsAbsolute Lymph #2.34BON SECOURS MERCY HEALTHAbsolute Hayes #0.64BON SECWILL[facility] HEALTH Basophils (Bld) [#/Vol]0.03 10*3/uLBON SECOURS [facility] HEALTHBasophils/100 WBC (Bld)0 %0 - 2 %BON SECBEREKET [facility] MEDICAL CENTEREosinophils/100 WBC (Bld)2 %1 - 4 %[facility] HOSPITALHematocrit (Bld) [Volume fraction]30.2 %Low36.3 - 47.1 %BON [facility] MEDICAL CENTERHemoglobin (Bld) [Mass/Vol]10.4 g/dLLow11.9 - 15.1 g/dLBON SECUNIVERSITY HOSPITALS ST. JOHN MEDICAL CENTERImmature granulocytes/100 WBC (Bld)1 %Mbqq4TRL [facility] MEDICAL CENTERInterpretation and review of laboratory resultsAbnormalBON TRUMBULL REGIONAL MEDICAL CENTERLymphocytes/100 WBC (Bld)33 %24 - 43 %[facility] MED[facility] CENTERH (RBC) [Entitic mass]29.7 pg25.2 - 33.5 pgBON PROTESTANT HOSPITALHC (RBC) [Mass/Vol] 34.4 g/dL28.4 - 34.8 g/dLBON SECSYCAMORE MEDICAL CENTERV (RBC) [Entitic vol]86.3 fL 82.6 - 102.9 fLSENTARA HALIFAX REGIONAL HOSPITALMonocytes/100 WBC (Bld)9 %3 - 12 %[facility]IONAL HOSPITALNRBC Automated0.00.0 per 100 WBCSENTARA HALIFAX REGIONAL HOSPITAL Platelet distribution width (Bld) [Ratio]13.6 %11.8 - 14.4 %[facility] REGIONAL HOSPITALPlatelet mean volume (Bld) [Entitic vol]11.2 fL8.1 - 13.5 fLBON SECWILLIS-KNIGHTON [facility] HEALTHPlatelets (Bld) [#/Vol]410 10*3/uLBON SECOURS [facility] HEALTHRBC (Bld) [#/Vol]3.50 10*6/uLLow3.95 - 5.11 m/uLBON [facility] MEDICAL CENTERSegmented neutrophils/100 WBC (Bld)54 %36 - 65 %[facility] HEALTHSegs Absolute3.[address] JOHN MEDICAL CENTERWBC (Bld) [#/Vol]7.1 10*3/uLBON SECOURS [facility] CENTERBON [facility] with Diffon [id number]. Basophil0.03 k/uLNormal 0.00-0.20Tuscarawas HospitalComment on above:Performed By: #### BMPX, CDP #### [facility] [employer] [address] [place] [address] Transfer Man: MDAbs. RafImm.Granulocyte0.05 k/uLNormal0.00-0.30Tuscarawas HospitalComment on above:Performed By: #### BMPX, CDP #### [facility] [employer] [address] [place] [address] Transfer Man: Simone Carbone.Neutrophil (Seg)3.83 k/uLNormal1.50-8.10 [facility]car[facility] HospitalComment on above:Performed By: #### BMPX, CDP #### [facility] [employer] [address] [place] [address] Transfer Man: Bala Skelton MDBasophils/100 WBC (Bld)0 %Normal0-2MMarinHealth Medical CenterComment on above:Performed By: #### BMPX, CDP #### [facility] [employer] [address] [place] [address] Transfer Man: Bala Skelton MDEosinophils (Bld) [#/Vol]0.16 10*3/uLNormal 0.00-0.44Tuscarawas HospitalComment on above:Performed By: #### BMPX, CDP #### [facility] [employer] [address] [place] [address] 0[address] Transfer Man: Bala Skelton MDEosinophils/100 WBC (Bld)2 %Normal1-4Tuscarawas HospitalComment on above:Performed By: #### BMPX, CDP #### [facility] [employer] [address] [place] [address] Transfer Man: Bala Skelton MDErythrocyte distribution width (RBC) [Ratio]13.6 %Nemkce68.8-14.4Tuscarawas HospitalComment on above:Performed By: #### BMPX, CDP #### [address] [address] Transfer Man: Bala Skelton MDHematocrit (Bld) [Volume fraction]30.2 %Low 36.3-47.1MMarinHealth Medical CenterComment on above:Performed By: #### BMPX, CDP #### [address] [address] Transfer Man: Bala Skelton MDHemoglobin (Bld) [Mass/Vol]10.4 g/dLLow11.9-15.1 [facility]car[facility]as HospitalComment on above:Performed By: #### BMPX, CDP #### [address] [address] Transfer Man: Bala Skelton MDImmature granulocytes/100 WBC (Bld)1 %Ziau2HgdjiTuscarawas HospitalComment on above:Performed By: #### BMPX, CDP #### [address] [address] Transfer Man: Bala Skelton MDLymphocytes (Bld) [#/Vol]2.34 10*3/uLNormal 1.10-3.70Tuscarawas HospitalComment on above:Performed By: #### BMPX, CDP #### [facility] [employer] [address] [place] [address] Transfer Man: Tay Carbonemphocytes/100 WBC (Bld)33 %Vfjzhu18-75EreihTuscarawas HospitalComment on above:Performed By: #### BMPX, CDP #### [facility] [employer] [address] [place] [address] Transfer Man: NORTH CarboneCH (RBC) [Entitic mass]29.7 xaVrraeo40.2-33.5 Tuscarawas HospitalComment on above:Performed By: #### BMPX, CDP #### [address] [address] Transfer Man: NORTH CarboneCHC (RBC) [Mass/Vol]34.4 g/pJOghigc27.4-34.8 Tuscarawas HospitalComment on above:Performed By: #### BMPX, CDP #### [address] [address] Transfer Man: NORTH CarboneCV (RBC) [Entitic vol]86.3 gSCpifkh56.6-102.9 Tuscarawas HospitalComment on above:Performed By: #### BMPX, CDP #### [address] [address] Transfer Man: NORTH Carboneonocytes (Bld) [#/Vol]0.64 10*3/uLNormal 0.10-1.20Tuscarawas HospitalComment on above:Performed By: #### BMPX, CDP #### [address] [address] Transfer Man: NORTH Carboneonocytes/100 WBC (Bld)9 %Normal3-12Tuscarawas HospitalComment on above:Performed By: #### BMPX, CDP #### [address] [address] Transfer Man: Bala Skelton MDNeutrophil (Seg)54 %Friaif97-47JgvupTuscarawas HospitalComment on above:Performed By: #### BMPX, CDP #### [facility] [employer] [address] [place] [address] Transfer Man: SHIRLEY Carbone Automated0.0 per 100 WBCNormal0.0Tuscarawas HospitalComment on above:Performed By: #### BMPX, CDP #### [employer] [address] [place] [address] 97[address] Transfer Man: Elie Carbone mean volume (Bld) [Entitic vol]11.2 fL Normal8.1-13.5Tuscarawas HospitalComment on above:Performed By: #### BMPX, CDP #### [facility] HospitalNanos[facility] [address] [place] [address] Transfer Man: Emil Carbone (Bld) [#/Vol]410 10*3/vCIkbveg890-658 [facility] HospitalComment on above:Performed By: #### BMPX, CDP #### [employer] [address] [place] [address] 11575 Transfer Man: LAWANDA Carbone (Bld) [#/Vol]3.50 10*6/uLLow3.95-5.11Tuscarawas HospitalComment on above:Performed By: #### BMPX, CDP #### [facility] HospitalNanos[facility] [address] [place] [address] 150[address] Transfer Man: ANTON Carbone (Bld) [#/Vol]7.1 10*3/uLNormal3.5-11.3MMarinHealth Medical CenterComment on above:Performed By: #### BMPX, CDP #### [facility] HospitalNanos[facility] [address] [place] [address] Transfer Man: Abhi Carbone,Urineon [id number],UrineSpecimen Description .CLEAN CATCH URINE Culture NO SIGNIFICANT GROWTH Report Status FINAL 07/19/2022NoalTuscarawas HospitalComment on above:Performed By: #### ANAX, IFX, PHEP, FKLLC, PE #### [employer] [address] [place] [address] Transfer Man: Inocencio Carbone, Urineon [id number] identified Cx Nom (U)NO SIGNIFICANT GROWTHBON SECClearApp WHITE HOSPITALAdjudica [facility]ICAL CENTERSpecimen Description .CLEAN CATCH URINEBON SECUNIVERSITY HOSPITALS ST. JOHN MEDICAL CENTERBON SECASTRIA TOPPENISH HOSPITALAdjudica [facility] MEDICAL CENTERIR GUIDED NEPHROSTOMY CATH PLACEMENT LEFTon [id number] percutaneous left nephroureteral stent placement via lower pole, past a large staghorn calculus, with distal pigtail tip position in the urinary bladder, as above. Findings were discussed with LIZZETTE CLAY at 4:09 pm on 07/19/2022. Noman Castro MD - 07/19/2022 PROCEDURE: PERCUTANEOUS ANTEGRADE PYELOGRAM [...] the procedure including risks, benefits, and alternatives. [place] protocol was followed. The patient's flank was [...] into the urinary bladder using a 4 Citizen [place] Kumpe the catheter; the Glidewire was exchanged [...] puncture of the lower pole calyx, 4 Citizen [place] Kumpe the catheter manipulation and glidewire extension into the urinary bladder. Subsequent images show the nephroureteral stent in satisfactory position. IMPRESSION: Successful percutaneous left nephroureteral stent placement via lower pole, past a large staghorn calculus, with distal pigtail tip position in the urinary bladder, as above. Findings were discussed with LIZZETTE CLAY at 4:09 pm on 07/19/2022. [employer] Phone: radiology Study observation (narrative)[employer] Phone: IR GUIDED NEPHROSTOMY CATH PLACEMENT LEFTOrdered By: Noman Mullen on [id number] [employer] Phone: POO Glucose Fingerstickon [id number] [Mass/Vol] 278 mg/aBBxws85 - 105 mg/dLBON COPPER SPRINGS HOSPITALFreedom Basketball LeagueInterpretation and review of laboratory resultsAbnormMountain States Health Alliance [employer] Medical Glucose [Mass/Vol]231 mg/eEOvel32 - 105 mg/dLBON COPPER SPRINGS HOSPITALFreedom Basketball League Interpretation and review of laboratory resultsAbnormalSOUTHERN [facility]IR[facility] TransPharma Medical [facility]PITALFreedom Basketball LeagueGlucose [Mass/Vol]301 mg/wAQlkb48 - 105 mg/dLBON COPPER SPRINGS HOSPITALFreedom Basketball LeagueInterpretation and review of laboratory resultsAbnormalCUMBERLAND HOSPITAL TransPharma MedicalGlucose [Mass/Vol]283 mg/wJOsys67 - 105 mg/dLBON COPPER SPRINGS HOSPITALFreedom Basketball LeagueInterpretation and review of laboratory results [facility] CenterClearApp [facility] TransPharma MedicalAugusta University [facility] [id number] Coag (PPP) [Relative time]0.9 {INR}NormalMercy Shasta Regional Medical CenterComment on above:Result Comment: Therapeutic Range: Moderate Anticoagulant Intensity: INR = 2.0-3.0 High Anticoagulant Intensity: INR = 2.5-3.5Performed By: #### ANAX, IFX, PHEP, FKLLC, PE #### [facility] HospitalN[facility] [address] [place] [address] [phone] Transfer Man: MADHAVI Carbone Coag (PPP) [Time]9.8 sNormal9.1-12.3Mercy Shasta Regional Medical CenterComment on above:Performed By: #### ANAX, IFX, PHEP, FKLLC, PE #### [facility] HospitalNanos[facility] [address] [place] [address] 34055 Transfer Man: Rico Carboneime-INRon [id number] Coag (Bld) [Relative time]0.9 {INR}[facility]IONAL HOSPITALComment on above: Therapeutic Range: Moderate Anticoagulant Intensity: INR = 2.0-3.0 High Anticoagulant Intensity: INR = 2.5-3.5 PT Coag (PPP) [Time]9.8 sBON TRUMBULL REGIONAL MEDICAL CENTERBON [facility] Urinalysis w/ Microon [id number], SemiQt,UrNegativeNormalNEGTuscarawas HospitalComment on above:Performed By: #### ANAX, IFX, PHEP, FKLLC, PE #### [employer] [address] [place] [address] [phone] Transfer Man: Manny Carbone, UrineLARGEAbnormalNEGTuscarawas HospitalComment on above:Performed By: #### ANAX, IFX, PHEP, FKLLC, PE #### [facility] [employer] [address] [place] [address] [phone] Transfer Man: SHANNEN Carboneasts2 TO 5 HYALINENormal0-8Tuscarawas HospitalComment on above:Result Comment: Reference range defined for non- centrifuged specimen.Performed By: #### ANAX, IFX, PHEP, FKLLC, PE #### [facility] [address] [place] [address] 87894 Transfer Man: SHANNEN Carbonelarity (U)TurbidAbnormalCLEARMercy Shasta Regional Medical CenterComment on above:Performed By: #### ANAX, IFX, PHEP, FKLLC, PE #### [facility] [address] [place] [address] 8[address]23 Transfer Man: SHANNEN Carboneolor (U)YellowNormalYELMerBarstow Community HospitalComment on above:Performed By: #### ANAX, IFX, PHEP, FKLLC, PE #### [address] [address] Transfer Man: Bala Skelton MDEpithelial cells LM Ql (Urine sed)0 TO 2Normal 0-5MerBarstow Community HospitalComment on above:Performed By: #### ANAX, IFX, PHEP, FKLLC, PE #### [address] [address] Transfer Man: Bala Skelton MDGlucose Ql (U)1+AbnormalNEGTuscarawas HospitalComment on above:Performed By: #### ANAX, IFX, PHEP, FKLLC, PE #### [address] [address] Transfer Man: Bala Skelton MDKetones Ql (U)NegativeNormalNEGMerBarstow Community HospitalComment on above:Performed By: #### ANAX, IFX, PHEP, FKLLC, PE #### [address] [address] Transfer Man: Bala Skelton MDLeukocyte esterase Test strip Ql (U)LARGE AbnormalNEGTuscarawas HospitalComment on above:Performed By: #### ANAX, IFX, PHEP, FKLLC, PE #### [facility] [address] [place] [address] 19[address] Transfer Man: Jc Carboneite,UrNegativeNormalNEGTuscarawas HospitalComment on above:Performed By: #### ANAX, IFX, PHEP, FKLLC, PE #### [facility] [address] [place] [address] 57658 Transfer Man: EDUARDO Carbone,Ur5.7Xsdvaq0.0-8.0Tuscarawas HospitalComment on above:Performed By: #### ANAX, IFX, PHEP, FKLLC, PE #### [facility] [address] [place] [address] 48023 Transfer Man: Magdy Carbone Ql (U)1+AbnormalNEGTuscarawas HospitalComment on above:Performed By: #### ANAX, IFX, PHEP, FKLLC, PE #### [facility] [address] [place] [address] 8[address]76 Transfer Man: ATIF Carbonepec. [place],Ur1.637Awsyjb0.005-1.030Tuscarawas HospitalComment on above:Performed By: #### ANAX, IFX, PHEP, FKLLC, PE #### [facility] [address] [place] [address]99 Transfer Man: Namrata Carbone RBC's10 TO 90Fjtkyc9-3WteyuTuscarawas HospitalComment on above:Result Comment: Reference range defined for non- centrifuged specimen.Performed By: #### ANAX, IFX, PHEP, FKLLC, PE #### [facility] [address] [place] [address] 9[address]76 Transfer Man: Namrata Carbone WBC'sTOO NUMEROUS TO COUNTNormal0-5Tuscarawas HospitalComment on above:Performed By: #### ANAX, IFX, PHEP, FKLLC, PE #### [facility] [address] [place], [place] [phone] Transfer Man: Bala Skelton MDUrobilinogen,UrNormalNormalNORMMerBarstow Community HospitalComment on above:Performed By: #### ANAX, IFX, PHEP, FKLLC, PE #### [facility] [address] [place], [place] [phone] Transfer Man: Bala Skelton MDUrinalysis with Microscopicon 07-19-2022 Bilirubin UrineNegativeNEGATIVEBON SECOURS WHITE HOSPITALY HEALTHCasts UA2 TO 5 HYALINE Reference range defined for non-centrifuged specimen.[facility] WHITE HOSPITALAdjudica HEALTH Color, UAYellowYellowBON SECOURS WHITE HOSPITALY HEALTHEpithelial Cells UA0 TO 2BON SECOURS WHITE HOSPITALY HEALTHGlucose, Ur1+AbnormalNEGATIVEBON SECOURS WHITE HOSPITALAdjudica HEALTH Interpretation and review of laboratory resultsAbnormalBON SECOURS WHITE HOSPITALY HEALTH Ketones Ql (U)NegativeNEGATIVEBON SECOURS Sub10 SystemsLeukocyte esterase Test strip Ql (U)LARGEAbnormalNEGATIVEBON SECOURS MERCY HEALTHNitrite, UrineNegative NEGATIVEBON SECOURS MERCY HEALTHpH, UA5.05 - 8B[facility]CY HEALTHProtein, UA1+AbnormalNEGATIVEBON SECOURS MERCY HEALTHRBC, UA10 TO 20B[facility] MERCY HEALTHComment on above:Reference range defined for non-centrifuged specimen. Specific [place], UA1.0171.005 - 1.03B[facility]CY HEALTHTurbidity UATurbid AbnormalClearBON SECOURS MERCY HEALTHUrine HgbLARGEAbnormalNEGATIVEBON SECOURS MERCY HEALTHUrobilinogen, UrineNormalNormalBON SECOURS MERCY HEALTHWBC, UATOO NUMEROUS TO COUNTBON SECOURS MERCY HEALTHBON SECOURS WHITE HOSPITALY HEALTHAPTTon [id number] Coag (Bld) [Time]22.8 kOhulxr29.5-30.5Tuscarawas HospitalComment on above:Result Comment: IV Heparin Therapy Range: 48.6-77.8Performed By: #### ANAX, IFX, PHEP, FKLLC, PE #### [facility] [place] [address] Transfer Man: Shanique Carbone (Frances) [Time]22.8 sBON TRUMBULL REGIONAL MEDICAL CENTERComment on above: IV Heparin Therapy Range: 48.6-77.8 Basic Metab w/rfx MGon 07-18-2022(cont.)NormalTuscarawas Hospital Comment on above:Result Comment: Average GFR for 50-59 years old: 93 mL/min/1.73sq m Chronic Kidney Disease: <60 mL/min/1.73sq m Kidney failure: <15 mL/min/1.73sq m eGFR calculated using average adult body mass. Additional eGFR calculator available at: http://www.SpinVox/multiple_crcl_2012.htmPerformed By: #### ANAX, IFX, PHEP, FKLLC, PE #### [facility] HospitalNanosolar [address] [place] [address] Transfer Man: Tracy Carbone gap [Moles/Vol]13 mmol/LNormal9-17Tuscarawas HospitalComment on above:Performed By: #### ANAX, IFX, PHEP, FKLLC, PE #### [employer] [address] [place] [address] 9[address] Transfer Man: SHANNEN Carbonealcium [Mass/Vol]9.4 mg/dLNormal8.6-10.4Tuscarawas HospitalComment on above:Performed By: #### ANAX, IFX, PHEP, FKLLC, PE #### [employer] [address] [place] [address] 394[address] Transfer Man: SHANNEN Carbonehloride [Moles/Vol]100 mmol/SQvfqlw91-895LdoniTuscarawas HospitalComment on above:Performed By: #### ANAX, IFX, PHEP, FKLLC, PE #### [address] [address] Transfer Man: Bala Skelton MDCO2 [Moles/Vol]24 mmol/SFhijwt22-87RxkcmTuscarawas HospitalComment on above:Performed By: #### ANAX, IFX, PHEP, FKLLC, PE #### [address] [address] Transfer Man: Bala Skelton MDCreatinine [Mass/Vol]1.65 mg/dLHigh0.50-0.90 [facility]as HospitalComment on above:Performed By: #### ANAX, IFX, PHEP, FKLLC, PE #### [address] [address] Transfer Man: Bala Skelton MDGFR, Amer40 mL/minLow>60Tuscarawas HospitalComment on above:Performed By: #### ANAX, IFX, PHEP, FKLLC, PE #### [address] [address] Transfer Man: Bala Skelton MDGFR,non Amer33 mL/minLow>60Tuscarawas HospitalComment on above:Performed By: #### ANAX, IFX, PHEP, FKLLC, PE #### [address] [address] Transfer Man: Bala Skelton MDGlucose [Mass/Vol]239 mg/aEGggd06-90Nmjfz [facility] Medical CenterComment on above:Performed By: #### ANAX, IFX, PHEP, FKLLC, PE #### [address] [address] Transfer Man: Bala Skelton MDPotassium [Moles/Vol]4.9 mmol/LNormal3.7-5.3 [facility] HospitalComment on above:Performed By: #### ANAX, IFX, PHEP, FKLLC, PE #### [facility] [address] [place], [place] [phone] Transfer Man: ATIF Carboneodium [Moles/Vol]137 mmol/BIkfney492-813CyylpTuscarawas HospitalComment on above:Performed By: #### ANAX, IFX, PHEP, FKLLC, PE #### [facility] [address] [place], [place] [phone] Transfer Man: Bala Skelton MDUrea nitrogen [Mass/Vol]33 mg/dLHigh6-20Tuscarawas HospitalComment on above:Performed By: #### ANAX, IFX, PHEP, FKLLC, PE #### [facility] [address] [place], [place] [phone] Transfer Man: James Carbone Metabolic Panel w/ Reflex to MGon [id number] gap [Moles/Vol]13 mmol/L9 - 17 mmol/LB[facility] [employer] [facility] Calcium [Mass/Vol]9.4 mg/dL8.6 - 10.4 mg/dLB[facility] HEALTHChloride [Moles/Vol]100 mmol/L98 - 107 mmol/LB[facility] HEALTHCO2 [Moles/Vol]24 mmol/L20 - 31 mmol/LB[facility] [employer] HEALTHCreatinine [Mass/Vol]1.65 mg/dLHigh 0.5 - 0.9 mg/dLBON SEC[facility] [employer] HEALTHGFR Dleknvox91 mL/ofpRwk82 - PINF mL/minBON SECPRES[facility] [employer]Y HEALTHGFR Non- Omhplfku06 mL/rqyPnr89 - PINF mL/minBON SECAnita Margarita HEALTHGFR/1.73 sq M.predicted MDRD (S/P/Bld) [Vol rate/Area]BON [facility] MEDICAL CENTERComment on above:Average GFR for 50-59 years old: 93 mL/min/1.73sq m Chronic Kidney Disease: <60 mL/min/1.73sq m Kidney failure: <15 mL/min/1.73sq m eGFR calculated using average adult body mass. Additional eGFR calculator available at: http://www.[employer]/multiple_crcl_2012.htm Glucose [Mass/Vol]239 mg/nOFsxs27 - 99 mg/dLBON [facility] Interpretation and review of laboratory resultsAbnormHospital Corporation of America Potassium [Moles/Vol]4.9 mmol/L3.7 - 5.3 mmol/LBON TRUMBULL REGIONAL MEDICAL CENTERSodium [Moles/Vol]137 mmol/L135 - 144 mmol/LBON TRUMBULL REGIONAL MEDICAL CENTERUrea nitrogen (BldV) [Mass/Vol]33 mg/dLHigh6 - 20 mg/dLBON SANFORD ABERDEEN MEDICAL CENTERCBC AUTO DIFFon [id number] #0.0 103/ulNormal0.0-0.1The [facility] Memorial HospitalComment on above:Performed By: #### CBC #### [facility] [address] [address] [address] Delmer ReaBasophils/100 WBC (Bld)0.2 %Normal0.2-2.0The [facility] Comment on above:Performed By: #### CBC #### [facility] [address] [address] [address] Delmer Madsen #0.1 103/ulNormal0.0-0.7The [facility] HospitalComment on above: Performed By: #### CBC #### [facility] [address] [address] [address] Delmer Pantojaosinophils/100 WBC (Bld)0.7 %Critically low0.9-7.0The [facility] HospitalComment on above:Performed By: #### CBC #### [facility] [address] [address] [address] Delmer Pantojarythrocyte distribution width (RBC) [Ratio]13.1 %Xvdubz53.0-15.0 The [facility] HospitalComment on above:Performed By: #### CBC #### [facility] [address] [place] [address] Dr. Delmer ReaHematocrit (Bld) [Volume fraction]36.9 %Nimbjg84.0-48.0The [facility] HospitalComment on above:Performed By: #### CBC #### [facility] [address] [place] [address] Dr. Delmer ReaHemoglobin (Bld) [Mass/Vol]12.5 g/hVTlnrup74.0-16.0The [facility] HospitalComment on above:Performed By: #### CBC #### [facility] [address] [address] [address] Delmer Montemayor #0.08 10e3/ulCritically high0.00-0.03The [facility] Comment on above:Performed By: #### CBC #### [facility] [address] [place] [address] Dr. Delmer Montemayor %0.6 %Critically high0.0-0.5The [facility] HospitalComment on above:Performed By: #### CBC #### [facility] [address] [place] [address] Dr. Delmer Corral #1.5 103/ulNormal1.2-3.8The [facility] HospitalComment on above:Performed By: #### CBC #### [facility] [address] [place] [address] Dr. Delmer Youhocytes/100 WBC (Bld)11.0 %Critically low20.5-60.0The [facility] HospitalComment on above:Performed By: #### CBC #### [facility] [address] [place] [address] Dr. Delmer ArellanoUAL DIFF REQNONormalThe [facility] HospitalComment on above: Performed By: #### CBC #### [facility] [address] [place] [address] Dr. Delmer Hayes (RBC) [Entitic mass]29.0 tbNkodwm95.7-34.0The [facility] HospitalComment on above:Performed By: #### CBC #### [facility] [address] [place] [address] Dr. Delmer BarnardHC (RBC) [Mass/Vol]33.9 g/rBHmwkvt73.9-35.2The [facility] HospitalComment on above:Performed By: #### CBC #### [facility] [address] [place] [address] Dr. Delmer BarnardV (RBC) [Entitic vol]85.6 hFWmqznv01.0-99.0The [facility] HospitalComment on above:Performed By: #### CBC #### [facility] [address] [place] [address] Dr. Delmer Mccormick #0.8 103/ulNormal0.3-0.8The [facility] HospitalComment on above:Performed By: #### CBC #### [facility] [address] [place] [address] Dr. Delmer Wallsocytes/100 WBC (Bld)5.9 %Normal1.7-12.0[facility] Comment on above:Performed By: #### CBC #### [facility] [address] [place] [address] Dr. Delmer Figueredo #11.2 103/ulCritically high1.4-6.5The [facility] Comment on above:Performed By: #### CBC #### [facility] [address] [place] [address] Dr. Delmer De Los Santosutrophils/100 WBC (Bld)81.6 %Critically high43.0-75.0The [facility] HospitalComment on above:Performed By: #### CBC #### [facility] [address] [place] [address] Dr. Delmer Cedillolet mean volume (Bld) [Entitic vol]10.3 fLNormal9.5-13.5The [facility] HospitalComment on above:Performed By: #### CBC #### [facility] [address] [place] [address] Dr. Delmer MorinT362 103/xzIgitmn685-886Llv [facility] HospitalComment on above: Performed By: #### CBC #### [facility] [address] [place] [address] Dr. Delmer ReaRBC4.31 106/ulNormal4.20-5.40The [facility] HospitalComment on above:Performed By: #### CBC #### [facility] [address] [address] [address] Delmer ReaWBC13.7 103/ulCritically high4.0-11.0The [facility] HospitalComment on above:Performed By: #### CBC #### [facility] [address] [address] [address] Delmer GarciaC with Auto Differentialon [id number] Eos #0.08[facility] CENTERAbsolute Immature Granulocyte0.08[facility] Absolute Lymph #2.13[facility]ENTERAbsolute Hayes #0.84[facility] MED[facility] CENTERBasophils (Bld) [#/Vol]0.04 10*3/uLBON SECOURS [facility] MED[facility] CENTERBasophils/100 WBC (Bld)0 %0 - 2 %[facility] MEDICAL CENTEREosinophils/100 WBC (Bld)1 %1 - 4 % B[facility] MEDICAL CENTERHematocrit (Bld) [Volume fraction]35.4 %Low36.3 - 47.1 % [facility] SECUNIV[facility] JOHN MEDICAL CENTERHemoglobin (Bld) [Mass/Vol]11.8 g/dLLow11.9 - 15.1 g/dL [facility] SECUNIV[facility] JOHN MEDICAL CENTERImmature granulocytes/100 WBC (Bld)1 %Ledg6IOQ [facility] CENTERInterpretation and review of laboratory resultsAbnormalBON [facility]RS [facility] MEDICAL CENTERLymphocytes/100 WBC (Bld)17 %Low24 - 43 %[facility] SECSYCAMORE MEDICAL CENTERH (RBC) [Entitic mass]28.6 pg25.2 - 33.5 pgBON SECSYCAMORE MEDICAL CENTERHC (RBC) [Mass/Vol]33.3 g/dL28.4 - 34.8 g/dLBON SECSYCAMORE MEDICAL CENTERV (RBC) [Entitic vol]85.7 fL82.6 - 102.[address] JOHN MEDICAL CENTERMonocytes/100 WBC (Bld)7 %3 - 12 %BON SECUNIVERS[facility] JOHN MEDICAL CENTERNRBC Automated0.00.0 per 100 WBCBON TRUMBULL REGIONAL MEDICAL CENTERPlatelet distribution width (Bld) [Ratio]13.2 %11.8 - 14.4 %[facility] HEALTHPlatelet mean volume (Bld) [Entitic vol]10.4 fL8.1 - 13.5 fLBON [facility]ITAL HEALTHPlatelets (Bld) [#/Vol]339 10*3/uLBON [facility] HEALTH RBC (Bld) [#/Vol]4.13 10*6/uL3.95 - 5.11 m/uLBON TRUMBULL REGIONAL MEDICAL CENTERSegmented neutrophils/100 WBC (Bld)74 %High36 - 65 %[facility] HEALTHSegs Absolute 9.11HighBON TRUMBULL REGIONAL MEDICAL CENTERWBC (Bld) [#/Vol]12.3 10*3/uLHighBON [facility]UM[facility]ION[facility] MEDICAL CENTERBON [facility]UM[facility] REGIONAL MEDICAL CENTERCBC with Diffon [id number]. Basophil0.04 k/uLNormal0.00-0.20Tuscarawas HospitalComment on above:Performed By: #### ANAX, IFX, PHEP, FKLLC, PE #### [employer] [address] [place] [address] Transfer Man: MDAbs. RafImm.Granulocyte0.08 k/uLNormal0.00-0.30Tuscarawas HospitalComment on above:Performed By: #### ANAX, IFX, PHEP, FKLLC, PE #### [employer] [address] [place] [address] Transfer Man: Simone Carbone.Neutrophil (Seg)9.11 k/uLHigh1.50-8.10Tuscarawas HospitalComment on above:Performed By: #### ANAX, IFX, PHEP, FKLLC, PE #### [employer] [address] [place] [address] Transfer Man: Bala Skelton MDBasophils/100 WBC (Bld)0 %Normal0-2MMarinHealth Medical CenterComment on above:Performed By: #### ANAX, IFX, PHEP, FKLLC, PE #### [place] [address] Transfer Man: Bala Skelton MDEosinophils (Bld) [#/Vol]0.08 10*3/uLNormal 0.00-0.44T[facility]carawas HospitalComment on above:Performed By: #### ANAX, IFX, PHEP, FKLLC, PE #### [place] [address] Transfer Man: Bala Skelton MDEosinophils/100 WBC (Bld)1 %Normal1-4Tuscarawas HospitalComment on above:Performed By: #### ANAX, IFX, PHEP, FKLLC, PE #### [place] [address] Transfer Man: Bala Skelton MDErythrocyte distribution width (RBC) [Ratio]13.2 %Ixcicj23.8-14.4Tuscarawas HospitalComment on above:Performed By: #### ANAX, IFX, PHEP, FKLLC, PE #### [place] [address] Transfer Man: Bala Skelton MDHematocrit (Bld) [Volume fraction]35.4 %Low 36.3-47.1MMarinHealth Medical CenterComment on above:Performed By: #### ANAX, IFX, PHEP, FKLLC, PE #### [place] [address] Transfer Man: Bala Skelton MDHemoglobin (Bld) [Mass/Vol]11.8 g/dLLow11.9-15.1 [facility] HospitalComment on above:Performed By: #### ANAX, IFX, PHEP, FKLLC, PE #### [facility] [address] [place] [address] Transfer Man: Karla Carbonemature granulocytes/100 WBC (Bld)1 %Okcl8AvkgyTuscarawas HospitalComment on above:Performed By: #### ANAX, IFX, PHEP, FKLLC, PE #### [facility] [address] [place] [address] Transfer Man: Bala Skelton MDLymphocytes (Bld) [#/Vol]2.13 10*3/uLNormal 1.10-3.70Tuscarawas HospitalComment on above:Performed By: #### ANAX, IFX, PHEP, FKLLC, PE #### [address] [address] Transfer Man: Tay Carbonemphocytes/100 WBC (Bld)17 %Hxg53-64XaefqTuscarawas HospitalComment on above:Performed By: #### ANAX, IFX, PHEP, FKLLC, PE #### [facility] [email or web address] [address] [place] [address] Transfer Man: ROQUE Carbone (RBC) [Entitic mass]28.6 luRzaeni14.2-33.5 [facility] HospitalComment on above:Performed By: #### ANAX, IFX, PHEP, FKLLC, PE #### [facility] [email or web address] [address] [place] [address] Transfer Man: ROQUE CarboneC (RBC) [Mass/Vol]33.3 g/aWWbkhtw22.4-34.8 [facility] HospitalComment on above:Performed By: #### ANAX, IFX, PHEP, FKLLC, PE #### [facility] [employer] [address] [place] [address] Transfer Man: Bala Skelton MDMCV (RBC) [Entitic vol]85.7 aLKxvwqe58.6-102.9 [facility] HospitalComment on above:Performed By: #### ANAX, IFX, PHEP, FKLLC, PE #### [address] [address] Transfer Man: Bala Skelton MDMonocytes (Bld) [#/Vol]0.84 10*3/uLNormal 0.10-1.20T[facility]carawas HospitalComment on above:Performed By: #### ANAX, IFX, PHEP, FKLLC, PE #### [place] [address] Transfer Man: NORTH Carboneonocytes/100 WBC (Bld)7 %Normal3-12Tuscarawas HospitalComment on above:Performed By: #### ANAX, IFX, PHEP, FKLLC, PE #### [place] [address] Transfer Man: Lisa Carboneutrophil (Seg)74 %Szri66-46QoozmTuscarawas HospitalComment on above:Performed By: #### ANAX, IFX, PHEP, FKLLC, PE #### [place] [address] Transfer Man: Bala Skelton MDNRBC Automated0.0 per 100 WBCNormal0.0Tuscarawas HospitalComment on above:Performed By: #### ANAX, IFX, PHEP, FKLLC, PE #### [address] [address] Transfer Man: EDUARDO Carbonelatelet mean volume (Bld) [Entitic vol]10.4 fL Normal8.1-13.5Tuscarawas HospitalComment on above:Performed By: #### ANAX, IFX, PHEP, FKLLC, PE #### [facility] [address] [place] [address] Transfer Man: Emil Carbone ([facility]) [#/Vol]339 10*3/kKGppalj725-221 [facility] HospitalComment on above:Performed By: #### ANAX, IFX, PHEP, FKLLC, PE #### [address] [address] Transfer Man: Bala Skelton [facility] ([facility]) [#/Vol]4.13 10*6/uLNormal3.95-5.11 [facility] HospitalComment on above:Performed By: #### ANAX, IFX, PHEP, FKLLC, PE #### [address] [address] Transfer Man: SUMIT Carbone ([facility]) [#/Vol]12.3 10*3/uLHigh3.5-11.3MMarinHealth Medical CenterComment on above:Performed By: #### ANAX, IFX, PHEP, FKLLC, PE #### [address] [address] Transfer Man: Bala Skelton MDCT ABD/PELVIS WO CONon [id number] ABD/PELVIS WO CONEXAMINATION: CT ABD/PELVIS WO CON HISTORY: CALCULUS OF [...] Electronically authenticated by: MARAH ALCANTAR Date: 2022-07-18 12:01[facility] DaytonCovid-19 PCR (CVDTBH)on [id number]-CoV-2 (COVID-19) RNA KASI+probe Ql (Unsp spec)Not detectedNormalNOT DETECTEDThe [facility] Comment on above:Result Comment: When diagnostic testing is negative, the [...] for this test is supported by the [place] of Health and Human Service's declaration that circumstances exist to justify the emergency use of in vitro diagnostics for the detection and/or diagnosis of the virus that causes COVID-19. This EUA will remain in effect for the duration of the COVID-19 declaration justifying emergency of IVDs, unless it is terminated or revoked by the FDA (after which the test may no longer be used).Performed By: #### LIPA, DLDL, CON, LIPID, T7, CMP, TSH #### [facility] [address] [address] [address] Delmer Diaz URINE PROFILEon [id number] Ql (U)NegativeNormal NEGATIVEMercy Health Anderson HospitalComment on above:Performed By: #### SHEREEN, ERUR #### [facility] [address] [address] [address] Delmer ReaClarity (U)SL CLOUDYAbnormalCLEARThChildren's Hospital of ColumbusComment on above:Performed By: #### SHEREEN, ERUR #### [facility] [address] [place] [address] Dr. Delmer Dunbarlor (U)LT. YELLOWNormalYELLOWMercy Health Anderson HospitalComment on above:Performed By: #### SHEREEN, ERUR #### [facility] [address] [place] [address] Dr. Delmer oYusif micrscopic examination will be performed if indicated. NormalMercy Health Anderson HospitalComment on above:Performed By: #### SHEREEN ERUR #### [facility] [address] [place] [address] Dr. Delmer ReaGlucose Ql (U)1000 mg/dlAbnormalNEGMercy Health Kings Mills Hospital Comment on above:Performed By: #### SHEREEN, ERUR #### [facility] [address] [place] [address] Dr. Delmer ReaHemoglobin Ql (U)LARGEAbnormalNEGMercy Health Kings Mills Hospital Comment on above:Performed By: #### SHEREEN, ERUR #### [facility] [address] [place] [address] Dr. Delmer ReaKetones Ql (U)NegativeNormalNEGATIVEMercy Health Anderson HospitalComment on above:Performed By: #### SHEREEN, ERUR #### [facility] [address] [address] [address] Delmer YenOCYTESSMALLAbnormalNEGATIVEMercy Health Anderson HospitalComment on above:Performed By: #### ANISHA REGANR #### [facility] [address] [address] [address] Delmer Anthonytrite Ql (U)PositiveAbnormalNEGATIVEThe [facility] Comment on above:Performed By: #### ANISHA REGANR #### [facility] [address] [address] [address] Delmer ReapH (U)5.5 [pH]Normal5-9The [facility] HospitalComment on above: Performed By: #### ANISHA REGANR #### [facility] [address] [place] [address] Dr. Delmer ReaSPEC GRAVITY1.992Lppyrd0.005-<=1.025The [facility] HospitalComment on above:Performed By: #### ANISHA REGANR #### [facility] [address] [place] [address] Dr. Delmer Mosher PROTEINTRACENormalNEGATIVE/ TRACEThe [facility] HospitalComment on above:Performed By: #### ANISHA REGANR #### [facility] [address] [place] [address] Dr. Delmer Salvador MICRO INDINDICATEDNormalThe [facility] HospitalComment on above: Performed By: #### ANISHA REGANR #### [facility] [address] [place] [address] Dr. Delmer Larsonbilinogen Qn (U)0.2 {Juanita'U}/dLNormal0.2 - 1.0The [facility] HospitalComment on above:Performed By: #### ANISHA REGANR #### [facility] [address] [place] [address] Dr. Delmer Nixon Panel Informationon [id number] [facility] Glucose Fingerstickon [id number] [Mass/Vol]227 mg/aOJobs82 - 105 mg/dLBON TRUM[facility]ULL REGIONAL MEDICAL CENTERInterpretation and review of laboratory resultsAbnormalSENTARA VIRGINIA BEACH GENERAL HOSPITALGlucose [Mass/Vol]189 mg/fTDigw74 - 105 mg/dLBON [facility] MEDICAL CENTERInterpretation and review of laboratory results AbnormalBON SANFORD ABERDEEN MEDICAL CENTERPOCT glucoseOrdered By: Ana Laura Swenson on 28-09-1875Bhsfgjd [Mass/Vol]189 mg/dLBON [facility] Interpretation and review of laboratory resultsNormalSENTARA VIRGINIA BEACH GENERAL HOSPITALPROF CHEM 8 (BAS METB)on [id number] gap [Moles/Vol] 13.6 mmol/LNormalThe [facility] HospitalComment on above:Performed By: #### SHEREEN, ERUR #### [facility] [address] [address] [address] Delmer ReaCalcium [Mass/Vol]9.6 mg/dLNormal8.5-10.1The [facility] Comment on above:Performed By: #### SHEREEN, ERUR #### [facility] [address] [address] [address] Delmer ReaChloride [Moles/Vol]98 mmol/JJfowod90-669Dhr [facility] Comment on above:Performed By: #### SHEREEN, ERUR #### [facility] [address] [address] [address] Delmer ReaCO2 [Moles/Vol]26.0 mmol/PNpnxrc52.0-32.0The [facility] Comment on above:Performed By: #### SHEREEN, ERUR #### [facility] [address] [address] [address] Delmer ReaCreatinine [Mass/Vol]1.45 mg/dLCritically high0.55-1.02The [facility] HospitalComment on above:Performed By: #### SHEREEN, ERUR #### [facility] [address] [address] [address] Dowell ChangEGFR-AF BTZNKLTR00 mL/min/1.06h0Rbnwpssoxa low>=60The [facility]kson HospitalComment on above:Performed By: #### SHEREEN ERUR #### [facility] [address] [address] [address] Delmer PantojaGFR-NON AF WJUQDCXI20 mL/min/1.89d2Hqxfzrlskw low>=60The [facility] HospitalCommymichigan medical center clare on above:Performed By: #### SHEREEN, ERUR #### [facility] [address] [address] [address] Delmer ReaGlucose [Mass/Vol]314 mg/dLCritically jfcb82-533Ord [facility] HospitalCommymichigan medical center clare on above:Performed By: #### SHEREEN ERUR #### [facility] [address] [place] [address] Dr. Delmer ReaPotassium [Moles/Vol]4.6 mmol/LNormal3.5-5.1[facility] Comment on above:Result Comment: specimen slightly hemolyzedPerformed By: #### SHEREEN, ERUR #### [facility] [address] [place] [address] Dr. Delmer ReaSodium [Moles/Vol]133 mmol/LCritically htk384-085XtpMercy Health Anderson HospitalComment on above:Performed By: #### SHEREEN ERUR #### [facility] [address] [place] [address] Dr. Delmer ReaUrea nitrogen [Mass/Vol]35.0 mg/dLCritically high7.0-18.0The [facility] HospitalComment on above:Performed By: #### SHEREEN, ERUR #### [facility] [address] [place] [address] Dr. Delmer Reynolds nitrogen/Creatinine [Mass ratio]24.1 mg/mgNormalThe [facility] HospitalComment on above:Performed By: #### SHEREEN, ERUR #### [facility] [address] [place] [address] Dr. Delmer Perry [id number] Coag (PPP) [Relative time]0.9 {INR}NormalMercy Shasta Regional Medical CenterComment on above:Result Comment: Therapeutic Range: Moderate Anticoagulant Intensity: INR = 2.0-3.0 High Anticoagulant Intensity: INR = 2.5-3.5Performed By: #### ANAX, IFX, PHEP, FKLLC, PE #### [employer] [facility] [place], [place] [id number] Transfer Man: MADHAVI Carbone Coag (PPP) [Time]10.0 sNormal9.1-12.3Mercy [facility] Regional Medical CenterComment on above:Performed By: #### ANAX, IFX, PHEP, FKLLC, PE #### [employer] [address] [place] [phone] Transfer Man: Rico Carboneime-INRon [id number] Coag (Bld) [Relative time]0.9 {INR}[facility]IONAL HOSPITALComment on above: Therapeutic Range: Moderate Anticoagulant Intensity: INR = 2.0-3.0 High Anticoagulant Intensity: INR = 2.5-3.5 PT Coag (PPP) [Time]10 sBON TRUMBULL REGIONAL MEDICAL CENTERURINE MICROSCOPIC ONLYon [id number]W SEENMercy Health Anderson HospitalComment on above: Performed By: #### VERNA REGAN #### [facility] [address] [place] [address] Dr. Delmer Spears identified Cx Nom (U)INDICATEDNormOhioHealth Southeastern Medical CenterComment on above:Performed By: #### ANISHA REGANR #### [facility] [address] [place] [address] Dr. Delmer Westfall SEENNormalNONE SEENMercy Health Anderson HospitalCommymichigan [facility] clare on above:Performed By: #### ANISHA REGANR #### [facility] [address] [place] [address] Dr. Delmer Kelley LM Nom (Urine sed)NONE SEENNormalNONE SEENMercy Health Anderson HospitalCommymichigan medical center clare on above:Performed By: #### ANISHA REGANR #### [facility] [address] [address] [address] Dowell ChangEpithelial cells LM Ql (Urine sed)FEWAbnormalNONE SEEN /RAREThe [facility] HospitalComment on above:Performed By: #### SHEREEN ERUR #### [facility] [address] [address] [address] Delmer ReaMUCOUSNONE SEENNormalNONE SEENThe [facility] HospitalComment on above:Performed By: #### SHEREEN, ERUR #### [facility] [address] [address] [address] Delmer ReaKyhxlEAQ40-31Uikubxuv4-6Kni [facility] on above: Performed By: #### SHEREEN ERUR #### [facility] [address] [place] [address] Dr. Delmer ReaWqbbdITQ69-32ApkxxcnjTTXF SEENThe [facility] HospitalComment on above: Performed By: #### SHEREEN ERUR #### [facility] [address] [place] [address] Dr. Delmer Vasquez by IFAon [id number] Antibodies, IFANegativeNormal The [facility] HospitalCommymichigan medical center clare on above:Result Comment: Negative <1:80 Borderline 1:80 Positive >1:80 ICAP nomenclature: AC-0 For more information about Hep-2 cell patterns use ANApatterns.org, the official website for the International Consensus on Antinuclear Antibody (ALEXANRDE) Patterns (ICAP).Performed By: #### SHEREEN ERUR #### [facility] [address] [place] [address] Dr. Delmer ReaANTISTREPTOLYSIN O AB (ASO)on [id number] O Ab23.8 IU/mLNormal0.0-200.0The [facility] HospitalCommymichigan medical center clare on above:Performed By: #### SHEREEN, ERUR #### [facility] [address] [address] [address] Delmer ReaINSULINon 65-18-1358Jycclgs54.9 uIU/mLCritically high2.6-24.9The [facility] HospitalComment on above:Performed By: #### LIPA, DLDL, CON, LIPID, T7, CMP, TSH #### [facility] [address] [place] [address] Dr. Delmer DarlingEUMATOID FACTORon 87-05-8087SF Latex Turbid.13.5 IU/mLNormal <14.0The [facility] HospitalComment on above:Performed By: #### LIPA, DLDL, CON, LIPID, T7, CMP, TSH #### [facility] [address] [place] [address] Dr. Delmer Benz 87-88-4766Gaxrcyqpijc peptide B (Bld) [Mass/Vol]168.0 pg/mL Normal<=900.0The [facility] HospitalComment on above:Performed By: #### LIPA, DLDL, CON, LIPID, T7, CMP, TSH #### [facility] [address] [place] [address] Dr. Delmer Vega AUTO DIFFon [id number] #0.0 103/ulNormal0.0-0.1The [facility] HospitalComment on above:Performed By: #### LIPA, DLDL, CON, LIPID, T7, CMP, TSH #### [facility] [address] [place] [address] Dr. Delmer ReaBasophils/100 WBC (Bld)0.4 %Normal0.2-2.0The [facility] Comment on above:Performed By: #### LIPA, DLDL, CON, LIPID, T7, CMP, TSH #### [facility] [address] [place] [address] Dr. Delmer Madsen #0.1 103/ulNormal0.0-0.7The [facility] HospitalComment on above: Performed By: #### LIPA, DLDL, CON, LIPID, T7, CMP, TSH #### [facility] [address] [place] [address] Dr. Delmer Pantojaosinophils/100 WBC (Bld)2.3 %Normal0.9-7.0The [facility] Comment on above:Performed By: #### LIPA, DLDL, CON, LIPID, T7, CMP, TSH #### [facility] [address] [place] [address] Dr. Delmer Pantojarythrocyte distribution width (RBC) [Ratio]11.9 %Ihzdxo80.0-15.0 The [facility] HospitalComment on above:Performed By: #### LIPA, DLDL, CON, LIPID, T7, CMP, TSH #### [facility] [address] [place] [address] Dr. Delmer ReaHematocrit (Bld) [Volume fraction]37.8 %Rinpsx55.0-48.0The [facility] HospitalComment on above:Performed By: #### LIPA, DLDL, CON, LIPID, T7, CMP, TSH #### [facility] [address] [place] [address] Dr. Delmer ReaHemoglobin (Bld) [Mass/Vol]12.7 g/nRYjqzdh68.0-16.0The [facility] HospitalComment on above:Performed By: #### LIPA, DLDL, CON, LIPID, T7, CMP, TSH #### [facility] [address] [place] [address] Dr. Delmer Montemayor #0.01 10e3/ulNormal0.00-0.03The [facility] Hospitalment on above:Performed By: #### LIPA, DLDL, CON, LIPID, T7, CMP, TSH #### [facility] [address] [place] [address] Dr. Delmer Montemayor %0.2 %Normal0.0-0.5The [facility] HospitalComment on above: Performed By: #### LIPA, DLDL, CON, LIPID, T7, CMP, TSH #### [facility] [address] [place] [address] Dr. Delmer Corral #1.8 103/ulNormal1.2-3.8The [facility] HospitalComment on above:Performed By: #### LIPA, DLDL, CON, LIPID, T7, CMP, TSH #### [facility] [address] [address] [address] Delmer Pendletonmphocytes/100 WBC (Bld)34.6 %Gzplyg12.5-60.0The [facility] HospitalComment on above:Performed By: #### LIPA, DLDL, CON, LIPID, T7, CMP, TSH #### [facility] [address] [address] [address] Delmer ArellanoUAL DIFF REQNONormalThe [facility] HospitalComment on above: Performed By: #### LIPA, DLDL, CON, LIPID, T7, CMP, TSH #### [facility] [address] [place] [address] Dr. Delmer Barnard (RBC) [Entitic mass]28.7 xdBdeqtz67.7-34.0The [facility] HospitalComment on above:Performed By: #### LIPA, DLDL, CON, LIPID, T7, CMP, TSH #### [facility] [address] [place] [address] Dr. Delmer Barnard (RBC) [Mass/Vol]33.6 g/uJYjftrg39.9-35.2The [facility] HospitalComment on above:Performed By: #### LIPA, DLDL, CON, LIPID, T7, CMP, TSH #### [facility] [address] [place] [address] Dr. Delmer Barnard (RBC) [Entitic vol]85.5 cSLkcxnf27.0-99.0The [facility] HospitalComment on above:Performed By: #### LIPA, DLDL, CON, LIPID, T7, CMP, TSH #### [facility] [address] [place] [address] Dr. Delmer Mccormick #0.5 103/ulNormal0.3-0.8The [facility] HospitalComment on above:Performed By: #### LIPA, DLDL, CON, LIPID, T7, CMP, TSH #### [facility] [address] [place] [address] Dr. Yilan ChangMonocytes/100 WBC (Bld)8.6 %Normal1.7-12.0The [facility] Comment on above:Performed By: #### LIPA, DLDL, CON, LIPID, T7, CMP, TSH #### [facility] [address] [place] [address] Dr. Delmer Figueredo #2.8 103/ulNormal1.4-6.5The [facility] HospitalComment on above:Performed By: #### LIPA, DLDL, CON, LIPID, T7, CMP, TSH #### [facility] [address] [place] [address] Dr. Delmer De Los Santosutrophils/100 WBC (Bld)53.9 %Xjzzqo11.0-75.0The [facility] HospitalComment on above:Performed By: #### LIPA, DLDL, CON, LIPID, T7, CMP, TSH #### [facility] [address] [place] [address] Dr. Delmer ReaPlatelet mean volume (Bld) [Entitic vol]10.2 fLNormal9.5-13.5The [facility] HospitalComment on above:Performed By: #### LIPA, DLDL, CON, LIPID, T7, CMP, TSH #### [facility] [address] [place] [address] Dr. Delmer ReaPLT326 103/dzAvwwcy755-178Oct [facility] HospitalComment on above: Performed By: #### LIPA, DLDL, CON, LIPID, T7, CMP, TSH #### [facility] [address] [place] [address] Dr. Delmer ReaRBC4.42 106/ulNormal4.20-5.40The [facility] HospitalComment on above:Performed By: #### LIPA, DLDL, CON, LIPID, T7, CMP, TSH #### [facility] [address] [place] [address] Dr. Delmer ReaWBC5.2 103/ulNormal4.0-11.0The [facility] HospitalComment on above: Performed By: #### LIPA, DLDL, CON, LIPID, T7, CMP, TSH #### [facility] [address] [address] [address] Delmer ReaCRMarin 02-69-9073VWO [Mass/Vol]mg/LNormal<=1.0The [facility] on above:Performed By: #### LIPA, DLDL, CON, LIPID, T7, CMP, TSH #### [facility] [address] [address] [address] Delmer ReaFREDMAR THYROXINE INDEX T7on 79-27-1269SEE2.07Critically high 1.30-4.50The [facility] HospitalComment on above:Performed By: #### LIPA, DLDL, CON, LIPID, T7, CMP, TSH #### [facility] [address] [place] [address] Dr. Delmer ReaT3U37.0 %Edmlwc41.0-39.0The [facility] on above: Performed By: #### LIPA, DLDL, CON, LIPID, T7, CMP, TSH #### [facility] [address] [place] [address] Dr. Delmer ReaT4 [Mass/Vol]13.70 ug/dLNormal4.80-13.90The [facility] Comment on above:Performed By: #### LIPA, DLDL, CON, LIPID, T7, CMP, TSH #### [facility] [address] [place] [address] Dr. Delmer ReaGLYCOHEMOGLOBIN A1Con 12-22-3883EFZ RECOMMENDATIONSEE BELOWNormal The [facility] HospitalComment on above:Result Comment: ADA RECOMMENDED LIMIT 4.0 - 6.0 ADA THERAPEUTIC TARGET < 7.0 ACTION SUGGESTED > 7.0Performed By: #### LIPA, DLDL, CON, LIPID, T7, CMP, TSH #### [facility] [address] [place] [address] Dr. Delmer ReaGlucose [Mass/Vol]174 mg/dLNormalThe [facility] HospitalComment on above:Performed By: #### LIPA, DLDL, CON, LIPID, T7, CMP, TSH #### [facility] [address] [place] [address] Dr. Delmer ReaHbA1c (Bld) [Mass fraction]7.7 %Critically high4.5-6.2The [facility] Hospitalment on above:Performed By: #### LIPA, DLDL, CON, LIPID, T7, CMP, TSH #### [facility] [address] [place] [address] Dr. Delmer Aguilar 29-63-6449Ecsc [Mass/Vol]84.0 ug/dBTpuzkd53.0-170.0The [facility] HospitalComment on above:Performed By: #### VERNA REGAN #### [facility] [address] [place] [address] Dr. Delmer Silva PROFILEon [id number]-HDL RATIO NORMSNewark HospitalComment on above:Result Comment: 3.3 - 4.4 LOW RISK 4.4 - 7.1 AVERAGE RISK 7.1 - 11.0 MODERATE RISK >11.0 HIGH RISKPerformed By: #### LIPA, DLDL, CON, LIPID, T7, CMP, TSH #### [facility] [address] [place] [address] Dr. Delmer Cordonesterol [Mass/Vol]239 mg/dLCritically high<=200The [facility] on above:Performed By: #### LIPA, DLDL, CON, LIPID, T7, CMP, TSH #### [facility] [address] [place] [address] Dr. Delmer Cordonesterol in HDL [Mass/Vol]43 mg/zXHtixzo61-90Jsa [facility] on above:Performed By: #### LIPA, DLDL, CON, LIPID, T7, CMP, TSH #### [facility] [address] [place] [address] Dr. Delmer Cordonesterol in LDL [Mass/Vol]131.8 mg/dLAccess Hospital DaytonCommymichigan medical center clare on above:Performed By: #### LIPA, DLDL, CON, LIPID, T7, CMP, TSH #### [facility] [address] [address] [address] Delmer ReaCholesterol.total/Cholesterol in HDL [Mass ratio]5.6 {ratio} NormalThe [facility] on above:Performed By: #### LIPA, DLDL, CON, LIPID, T7, CMP, TSH #### [facility] [address] [address] [address] Delmer Low NORMAL> or = 60 mg/dl - LOW CARDIOVASCULAR RISK <40 mg/dl - HIGH CARDIOVASCULAR RISKAccess Hospital DaytonCommymichigan medical center clare on above:Performed By: #### LIPA, DLDL, CON, LIPID, T7, CMP, TSH #### [facility] [address] [place] [address] Dr. Delmer Dyer CALC NORMALSEE BELOWAccess Hospital DaytonComment on above:Result Comment: <100 mg/dl OPTIMAL 100 - 129 mg/dl NEAR OR ABOVE OPTIMAL 130 - 159 mg/dl BORDERLINE HIGH 160 - 189 mg/dl HIGH >190 mg/dl VERY HIGH Performed By: #### LIPA, DLDL, CON, LIPID, T7, CMP, TSH #### [facility] [address] [address] [address] Delmer ReaTriglyceride [Mass/Vol]321 mg/dLCritically high<=150The [facility] HospitalCommymichigan medical center clare on above:Performed By: #### LIPA, DLDL, CON, LIPID, T7, CMP, TSH #### [facility] [address] [place] [address] Dr. Delmer Muñoz CALC64.2 mg/dLNoOhioHealth Shelby HospitalComment on above: Performed By: #### LIPA, DLDL, CON, LIPID, T7, CMP, TSH #### [facility] [address] [place] [address] Dr. Delemr ReaPROLisa 14(COMP METB)on 46-63-1953Knuywbl [Mass/Vol]3.6 g/dLNormal 3.4-5.0Madison Healthment on above:Performed By: #### LIPA, DLDL, CON, LIPID, T7, CMP, TSH #### [facility] [address] [address] [address] Delmer ReaAlbumin/Globulin [Mass ratio]0.9 {ratio}NormalThe [facility] Hospitalment on above:Performed By: #### LIPA, DLDL, CON, LIPID, T7, CMP, TSH #### [facility] [address] [place] [address] Dr. Delmer Barreto [Catalytic activity/Vol]98 U/TCtdnnj05-424Dkv [facility] HospitalComment on above:Performed By: #### LIPA, DLDL, CON, LIPID, T7, CMP, TSH #### [facility] [address] [place] [address] Dr. Delmer Askew [Catalytic activity/Vol]21 U/EHwsgep36-42Mxp [facility] HospitalComment on above:Performed By: #### LIPA, DLDL, CON, LIPID, T7, CMP, TSH #### [facility] [address] [place] [address] Dr. Delmer Randall gap [Moles/Vol]15.8 mmol/LNormalThe [facility] Comment on above:Performed By: #### LIPA, DLDL, CON, LIPID, T7, CMP, TSH #### [facility] [address] [place] [address] Dr. Delmer ReaAST [Catalytic activity/Vol]10 U/LCritically acl48-88Xxk [facility] Hospitalment on above:Performed By: #### LIPA, DLDL, CON, LIPID, T7, CMP, TSH #### [facility] [address] [place] [address] Dr. Delmer ReaBilirubin [Mass/Vol]0.6 mg/dLNormal0.2-1.0The [facility] Comment on above:Performed By: #### LIPA, DLDL, CON, LIPID, T7, CMP, TSH #### [facility] [address] [place] [address] Dr. Delmer ReaCalcium [Mass/Vol]9.4 mg/dLNormal8.5-10.1[facility] Comment on above:Performed By: #### LIPA, DLDL, CON, LIPID, T7, CMP, TSH #### [facility] [address] [place] [address] Dr. Delmer ReaChloride [Moles/Vol]105 mmol/ZOhzmlt69-980YwnMercy Health Anderson Hospital Comment on above:Performed By: #### LIPA, DLDL, CON, LIPID, T7, CMP, TSH #### [facility] [address] [place] [address] Dr. Delmer ReaCO2 [Moles/Vol]26.2 mmol/CVgbjew43.0-32.0[facility] Comment on above:Performed By: #### LIPA, DLDL, CON, LIPID, T7, CMP, TSH #### [facility] [address] [place] [address] Dr. Delmer ReaCreatinine [Mass/Vol]1.26 mg/dLCritically high0.55-1.02[facility] HospitalComment on above:Performed By: #### LIPA, DLDL, CON, LIPID, T7, CMP, TSH #### [facility] [address] [place] [address] Dr. Delmer PantojaGFR-AF FFRUVWMG37 mL/min/1.80a2Dgsqlkscki low>=60Mer[facility] HospitalComment on above:Performed By: #### LIPA, DLDL, CON, LIPID, T7, CMP, TSH #### [facility] [address] [place] [address] Dr. Delmer PantojaGFR-NON AF NSLKHGTT45 mL/min/1.49m4Vmvstegmdl low>=60[facility] HospitalComment on above:Performed By: #### LIPA, DLDL, CON, LIPID, T7, CMP, TSH #### [facility] [address] [place] [address] Dr. Delmer ReaGlobulin (S) [Mass/Vol]3.9 g/dLNormalThChildren's Hospital of ColumbusComment on above:Performed By: #### LIPA, DLDL, CON, LIPID, T7, CMP, TSH #### [facility] [address] [place] [address] Dr. Delmer ReaGlucose [Mass/Vol]125 mg/dLCritically cpna37-514Bpw [facility] HospitalComment on above:Performed By: #### LIPA, DLDL, CON, LIPID, T7, CMP, TSH #### [facility] [address] [place] [address] Dr. Delmer ReaPotassium [Moles/Vol]4.0 mmol/LNormal3.5-5.1[facility] Comment on above:Performed By: #### LIPA, DLDL, CON, LIPID, T7, CMP, TSH #### [facility] [address] [place] [address] Dr. Delmer ReaProtein [Mass/Vol]7.5 g/dLNormal6.4-8.2The [facility] Comment on above:Performed By: #### LIPA, DLDL, CON, LIPID, T7, CMP, TSH #### [facility] [address] [place] [address] Dr. Delmer ReaSodium [Moles/Vol]143 mmol/OGpyhxw840-832Ive [facility] Comment on above:Performed By: #### LIPA, DLDL, CON, LIPID, T7, CMP, TSH #### [facility] [address] [place] [address] Dr. Delmer ReaUrea nitrogen [Mass/Vol]34.0 mg/dLCritically high7.0-18.0The [facility] HospitalComment on above:Performed By: #### LIPA, DLDL, CON, LIPID, T7, CMP, TSH #### [facility] [address] [place] [address] Dr. Delmer ReaUrea nitrogen/Creatinine [Mass ratio]27.0 mg/mgNormalThe [facility] HospitalComment on above:Performed By: #### LIPA, DLDL, CON, LIPID, T7, CMP, TSH #### [facility] [address] [place] [address] Dr. Delmer Jerez 74-12-5706LGF8.009 uIU/mLCritically low0.358-3.740The [facility] HospitalComment on above:Performed By: #### LIPA, DLDL, CON, LIPID, T7, CMP, TSH #### [facility] [address] [place] [address] Dr. Delmer NICOLAS [facility] CenterComment on above: Result Comment: <0.34 UIU/ml HYPERTHYROID 0.34-5.60 UIU/ml EUTHYROID >5.60 UIU/ml HYPOTHYROIDPerformed By: #### LIPA, DLDL, CON, LIPID, T7, CMP, TSH #### [facility] [address] [place] [address] Dr. Delmer ReaURIC ACID SERUMon 49-96-5266Ujthx [Mass/Vol]7.1 mg/dLCritically high2.6-6.0[facility] on above:Performed By: #### LIPA, DLDL, CON, LIPID, T7, CMP, TSH #### [facility] [address] [place] [address] Dr. Delmer ReaVITAMIN D 25 OHon 45-64-2263NPK D 25-OH23.8 ng/mLNormalMercy Health Anderson HospitalComment on above:Performed By: ###VERNA BELL #### [facility] [address] [place] [address] Dr. Delmer BECERRAAnh [facility]aritan Medical CenterCommymichigan medical center clare on above: Result Comment: <20 ng/mL Vit D deficient 20 - <30 ng/mL Vit D insufficient 30 - 100 ng/mL Vit D sufficient >100 ng/mL Potential ToxicityPerformed By: #### VERNA RGEAN #### [facility] [address] [place] [address] Dr. Delmer Chester 63-19-3060UIYAPdkfpzvtm ([facility] LUCASA SPANN ([id number]) 1970 F Date Time Provider Department 11/09/21 AURELIA PACHECO During your visit today, we recorded the following information about you: Aurelia Pacheco RN 11/09/2021 4:54 PM Addendum BMI [...] obesity (HCC) [E66.01] 06/21/2021 Encounter Status:Closed by AURELIA PACHECO on 11/09/21[facility] [id number] (GENBMI) ASA THOMPSON ([id number]) 1970 F Date Time Provider Department 10/05/21 AURELIA PACHECO GENBMI During your visit today, we recorded the following information about you: Aurelia Pacheco RN 10/05/2021 10:06 AM Signed Called [...] obesity (HCC) [E66.01] 06/21/2021 Encounter Status:Closed by AURELIA PACHECO on 10/05/21[facility] [id number] (GENBMI) ASA THOMPSON ([id number]) 1970 F Date Time Provider Department 07/29/21 AURELIA PACHECO During your visit today, we recorded the following information about you: Aurelia Pacheco RN 07/29/2021 3:19 PM Signed BMI SPECIALTY CARE COORDINATION TELEPHONE ENCOUNTER Follow up call placed to patient, no answer phone; left voice message with my call back phone number. Aurelia Pacheco RN July 29, 2021 3:19 PM [...] obesity (HCC) [E66.01] 06/21/2021 Encounter Status:Closed by AURELIA PACHECO on 07/29/21NoA[facility] Hospitalbree [id number] (GENBMI) APRILASA Jyotsna ([id number]) 1970 F Date Time Provider Department 07/14/21 AURELIA PACHECOClare During your visit today, we recorded the following information about you: Aurelia Pacheco RN 07/14/2021 3:04 PM Addendum Follow up call placed to patient, no answer phone; left voice message with my call back phone number. [phone] Cancelled surgery scheduled for 07/15/21. No call back from patient. Patient cancelled PACC appointment and COVID test. Aurelia Pacheco RN July 14, 2021 3:04 PM [...] obesity (HCC) [E66.01] 06/21/2021 Encounter Status:Closed by AURELIA PACHECO on 07/14/21NormalCOhioHealth Doctors HospitalCNPNTelephone (GSPSMN) ASA THOMPSON ([id number]) 1970 F Date Time Provider Department 07/14/[address] [facility] During your visit today, we recorded the following information about you: Damien Tamez, PhD 07/14/2021 1:02 PM Signed [facility] Attempted to contact pt to offer emotional support ahead of scheduled surgical procedure. Pt unavailable. Damien Tamez, PhD Psychologist Allergies As of Date: [...] obesity (HCC) [E66.01] 06/21/2021 Encounter Status:Closed by DAMIEN TAMEZ on 07/14/21NoUC HealthGracie [id number] (GENBMI) ASA THOMPSON ([id number]) 1970 F Date Time Provider Department 07/13/21 AURELIA PACHECO During your visit today, we recorded the following information about you: Aurelia Pacheco RN 07/13/2021 4:55 PM Addendum BMI follow up call. No answer phone;left voice message asking for call back. Aurelia Pacheco RN July 13, 2021 11:18 AM Follow up call placed to patient, no answer phone; left voice message with my call back phone number. Aurelia Pacheco RN July 13, 2021 4:55 PM [...] obesity (HCC) [E66.01] 06/21/2021 Encounter Status:Closed by AURELIA PACHECO on 07/13/21[facility] [id number] (GENBMI) ASA THOMPSON ([id number]) 1970 F Date Time Provider Department 07/08/21 AURELIA PACHECO GENBMI During your visit today, we recorded the following information about you: Aurelia Pacheco RN 07/08/2021 4:55 PM Signed BMI SPECIALTY CARE COORDINATION TELEPHONE ENCOUNTER Follow up call placed to patient to see if tolerating liquid diet. Patient states I am just not good at liquid diets. I can eat jello and sugar free things like applesauce, but I can not tolerate protein shakes. Patient reports has not read Gondolat message from Nutrition but will do so [...] if has any further questions or concerns. Aurelia Pacheco RN July 08, 2021 4:51 PM [...] obesity (HCC) [E66.01] 06/21/2021 Encounter Status:Closed by AURELIA PACHECO on 07/15/21NoUC HealthCNPNTelephone (GENBMI) ASA THOMPSON ([id number]) 1970 F Date Time Provider Department 07/08/21 AURELIA PACHECO GENBMI During your visit today, we [...] obesity (HCC) [E66.01] 06/21/2021 Encounter Status:Closed by AURELIA PACHECO on 07/08/21NoUC HealthCNFeliciano 97-48-2580RQIGOkztejeqq (GENBMI) ASA THOMPSON ([id number]) 1970 F Date Time Provider Department 07/07/21 AURELIA PACHECO GENBMI During your visit today, we recorded the following information about you: Aurelia Pacheco RN 07/07/2021 10:01 AM Signed Follow [...] RN back this afternoon after 2 P.M. Aurelia Pacheco RN July 07, 2021 10:01 AM [...] obesity (HCC) [E66.01] 06/21/2021 Encounter Status:Closed by AURELIA PACHECO on 07/07/21[facility] 52-27-4819YPJMUvjuwsngq (GENBMI) ASA THOMPSON ([id number]) 1970 F Date Time Provider Department 07/05/21 AURELIA PACHECO GENBMI During your visit today, we recorded the following information about you: Aurelia Pacheco RN 07/05/2021 8:59 AM Addendum Returning patient call. Patient reports unable to tolerate protein drinks has been eating small meals in preparation for upcoming bariatric surgery on 07/15/21. Advised patient I would reach out to Nutrition for recommendation and follow up. Aurelia Pacheco RN July 05, 2021 8:57 AM [...] obesity (HCC) [E66.01] 06/21/2021 Encounter Status:Closed by AURELIA PACHECO on 07/06/21[facility] [id number] (GENBMI) ASA THOMPSON ([id number]) 1970 F Date Time Provider Department 06/21/21 AURELIA PACHECO GENBMI During your visit today, we recorded the following information about you: Aurelia Pacheco RN 07/06/2021 10:39 AM Addendum BMI [...] arrival time. Other Instructions Reviewed: Gave patient [phone] My Chart Support line phone number Skin [...] you may take two Extra Strength Tylenol. Aurelia Pacheco RN Allergies As of Date: 06/21/2021 [...] mouth twice daily. - (more content not included)...NormalMercy Health Allen Hospitalon 22-32-8950AMBAZtrdivjmc (GENBMI) ASA THOMPSON ([id number]) 1970 F Date Time Provider Department 05/25/21 AURELIA PACHECO During your visit today, we recorded the following information about you: Aurelia Pacheco RN 05/25/2021 4:23 PM Signed [facility] COORDINATION SURGERY APPROVAL CALL Received e-mail confirmation of insurance approval for bariatric surgery.Pre-operative call placed to the patient, this RN spoke with patient and agreed upon a surgery date of July 15 2021. Surgical episode request sent to [facility] surgery scheduling. -Patient instructed to start pre-op [...] Pt instructed to fax FMLA forms to biomedical engineering aide and allow 7-10 days for completion. Radha video assigned and Pt will view Drop video during pre-op nurse visit. All questions and concerns addressed and pt verbalized understanding. -Patient case reviewed. All nutrition appointments completed, psychology clearance obtained, surgeon visit and procedure type verified, medical optimization obtained and all testing complete. Con ABO No ordered Creatinine level 1.03 Aurelia Pacheco RN Allergies As of Date: 05/25/2021 [...] mellitus without complication, *03/17/2020 Encounter Status:Closed by AURELIA PACHECO on 05/25/21NormalCmetro[facility] center[facility] 95-06-1746PJPYGfehwk TextNormalCmetrohealth main campus medical centerand [facility] 55-00-0491CWYETdbamv TextNormalCPremier Health [facility] 29-89-8296XYZY Letter TextNormLakeHealth [facility] Vital Signs Date TimeVital SignValuePerforming RzcisiclfKgbyakla73-35-6593 11:22-0400Body wgtebdavzxi86.5 [degF]Spencer Kong MD Work Phone: [facility]10-29-2025 11:22-0400 Diastolic blood uteyjvpi18 mm[Hg]Spencer Kong MD Work Phone: [facility]10-29-2025 11:22-0400 Heart rate95 /Celestina Kong MD Work Phone: [facility]10-29-2025 11:22-0400 Respiratory rate18 /Celestina Kong MD Work Phone: [facility]10-29-2025 11:22-0400 SaO2% (BldA) [Mass fraction]96 %Spencer Kong MD Work Phone: [phone])[address] [place], [place] 2792210-29-2025 11:22-0400 Systolic blood blyczhoc418 mm[Hg]Spencer Kong MD Work Phone: 1(853)[address] [place], [place] 2792210-29-2025 03:56-0400 Body mass index (BMI) [Ratio]40.5 kg/p3KhtvxrSpencer Kong MD Work Phone: 1(685)[address] [place], [place] 2792210-29-2025 03:56-0400 Body uddxsy869.4 kgSpencer Kong MD Work Phone: 1(311)[address] [place], [place] 2792210-23-2025 05:51-0400 Body mvotgsuyxiz93.0Spencer Kong MD Work Phone: 1(661)[address] [place], [place] 2792210-22-2025 17:20-0400 Body vwuzcpdnuev38.0Spencer Kong MD Work Phone: [phone] [place], [place] 9738610-22-2025 17:11-0400 Body oxagpwuigiu13.0 degrees CelUniversity Hospitals Health SystemComment on above:Performed By: #### [id number] #### HEAVEN Goyal ([id number]) [facility] ([facility]) [address] [place] [address] 16:57-0400Body hrtyzcdutbe51.[address] [facility] Medical CenterComment on above:Result Comment: NOTE: Patient Results are Not Corrected for TemperaturePerformed By: #### [id number] #### HEAVEN Goyal ([id number]) [facility] ([facility]) [address] [place], [place] 25[address]10-22-2025 14:44-0400Body ugxgvzuqlvx44.0Spencer Kong MD Work Phone: [phone]10-22-2025 14:36-0400 Body ttnvkmvelep30.0 degrees CelsiMercy Health Fairfield HospitalComment on above:Performed By: #### [id number] #### HEAVEN PHILIP L ([id number]) [facility] ([facility]) [address] [place], [place] [address]10-22-2025 12:46-0400Body hjpgibzlmjo10.0Spencer Kong MD Work Phone: [facility]10-22-2025 12:38-0400 Body dnjigqntjzz27.0 degrees CelsiusSKettering Health Washington TownshipComment on above:Performed By: #### [id number] #### HEAVEN HOPKINSTZRYANN L ([id number]) [facility] ([facility]) [address] [place], [place] 25[address]10-22-2025 10:41-0400Body msyetqtcahy73.[address] degrees [address] [facility] [address] Vincent Medical CenterComment on above: Performed By: #### 32483-2 #### HEAVEN HOPKINSTZRYANN L ([id number]) [facility] ([facility]) [address] [place], [place] [address]10-22-2025 03:20-0400Body eutkqvkgbmb27.0 degrees Celsius [facility] Vincent Medical CenterComment on above: Performed By: #### [id number] #### HEAVEN HOPKINSTZER L ([id number]) [facility] ([facility]) [address] [place] [address] 00:04-0400Body dikffozfawx31.[address] [facility] [address] Vincent Medical CenterComment on above: Performed By: #### 2341-6 #### HEAVEN HOPKINSTZRYANN L ([id number]) [facility] ([facility]) [address] [place] [address] 22:00-0400Body qorwgq506.1 Cari Kong MD Work Phone: [facility]10-21-2025 21:58-0400 Body uathvmjafva23.0 degrees CelsiMercy Health Fairfield HospitalComment on above:Performed By: #### [id number] #### HEAVEN Goyal ([id number]) [facility] ([facility]) [address] [place] [address] [id number] 18:45-0400Diastolic blood quoguued47 mm[Hg]Ricardo Ramos MD Work Phone: 1(195)[address] [place], [place] 1686610-21-2025 18:45-0400 Heart rate97 /Ashley Ramos MD Work Phone: 1(558)[address] [place], [place] 1686610-21-2025 18:45-0400 Inhaled oxygen flow rate2 L/Ashley Ramos MD Work Phone: 1(035)[address] [place], [place] 1686610-21-2025 18:45-0400 Respiratory rate18 /Ashley Ramos MD Work Phone: 1(750)[address] [place], [place] 1686610-21-2025 18:45-0400 SaO2% (BldA) [Mass fraction]98 %Ricardo Ramos MD Work Phone: 1(341)[address] [place], [place] 1686610-21-2025 18:45-0400 Systolic blood yxngtztj452 mm[Hg]Ricardo Ramos MD Work Phone: 1(914)[address] [place], [place] 1686610-21-2025 13:55-0400 Body myqksgopbhb95.2 [degF]Ricardo Ramos MD Work Phone: 1(052)[address] [place], [place] 1686610-21-2025 05:56-0400 Body zysqgy850.2 kgRicardo Ramos MD Work Phone: 1(118)[address] [place], [place] 1686610-20-2025 21:45-0400 Body ibjoop901.1 cmRicardo Ramos MD Work Phone: 1(437)[address] [place], [place] 1686602-21-2023 15:00-0500 Body .02 Pat Capone Other [employer] Other [id number] 15:00-0500Body mass index (BMI) [Ratio] 44.63 kg/m2Aime Capone [facility] Other 02-21-2023 15:00-0500Body hpwcyy279.31 kgAime Capone Other [employer] Other 02-21-2023 15:00-0500Diastolic blood jzacrupu91 mm[Hg] Aime Capone Other [employer] Other 02-21-2023 15:00-0500Respiratory rate18 /minAime Capone Other [employer] Other 02-21-2023 15:00-1690ZlT2% (BldA) [Mass fraction]97 % Aime Capone Other [employer] Other 02-21-2023 15:00-0500Systolic blood rigtjzmp565 mm[Hg] Aime Capone Other [employer] Other 09-20-2022 10:45-0400Body nbkzzifrmlz77.2 [degF] Bishnu Horner MD Work Phone: [employer]09-20-2022 10:45-0400Diastolic blood ijsrawtz25 mm[Hg]Bishnu Horner MD Work Phone: [employer]09-20-2022 10:45-0400Heart rate84 /minBishnu Horner MD Work Phone: [facility]09-20-2022 10:45-0400 Respiratory rate16 /minBishnu Horner MD Work Phone: [facility] [employer]09-20-2022 10:45-0555OhZ8% (BldA) [Mass fraction]98 %Bishnu Horner MD Work Phone: [facility]09-20-2022 10:45-0400Systolic blood exassrbd098 mm[Hg]Bishnu Horner MD Work Phone: [facility]09-19-2022 18:02-0400Body qgawhh727.1 cmBishnu Horner MD Work Phone: [facility]09-19-2022 18:02-0400Body mass index (BMI) [Ratio]39.94 kg/k5RaoyohlBishnu Horner MD Work Phone: [facility]09-19-2022 18:02-0400Body fzfjap017.86 kgBishnu Horner MD Work Phone: [facility]09-16-2022 11:28-0400Body ubyirppkmtn59.2 [degF]Aime Bird [facility]-16-2022 11:28-0400Diastolic blood yyeoukup77 mm[Hg]Aime Bird [facility]-16-2022 11:28-0400Heart rate92 /Geovany Bird [facility]09-16-2022 11:28-0400Respiratory rate12 /minStuan Bird [facility]09-16-2022 11:28-4983CvT5% (BldA) [Mass fraction]96 %Aime Bird MD [facility]09-16-2022 11:28-0400Systolic blood mm[Hg] Aime Bird [facility]09-12-2022 20:54-0400Body altrwv831.1 cm Aime Bird [facility]09-12-2022 20:54-0400Body mass index (BMI) [Ratio]42.56 kg/f8HtdeoyjAime Bird [facility]09-12-2022 20:54-0400Body kgStpiter Bird [facility] Encounters Encounter DateEncounter TypeCare ProviderFacilityStart: 09-11-2025 End: 20-06-8945bhlfntdbytXCGG [facility]: 08-26-2025 End: 97-88-9627Fheiqazjgk and management of inpatientSpencer Kong MD Work Phone: [facility] Butch Pantoja 7Start: 99-92-4017Cjc-patient / Non-visitStuan Cantor MD-[facility] Work Phone: Start: 08-25-2025 End: 67-65-3405Ulfuvixdbj and management of inpatientHeather Mischler [facility]: 11-01-2024 End: 20-25-4861snylgehcnsBHHI [facility]: 08-03-2024 End: 25-02-3902Awictuyfci and management of inpatientDOUGLAS M HOYProMedica [facility] Hospitaltart: 03-10-2023 End: 66-35-8342dqljhypycmEDHJ BAKHOUSFacility:K0Dtjtk: 89-15-8243lmlhkjtexrFJLY BAKHOUSFacility:U0Jbcbj: 12-28-2022 End: 84-01-0145clvzkivrxyGFIG BAKHOUSFacility:U2Fcqyj: 12-27-2022 End: 40-57-8517qtizgtvdmtOikb Bakhous Other [employer] Other Start: 66-48-9107Xtrudt outpatient new 30 minutesAziz BakhousFPG [facility]phrology ClydeStart: 12-01-2022 End: 13-80-9053oifztxpcsdBK RICARDO HOY .Facility:F8Xecio: 11-26-2022 End: 43-47-1204bvoqhgzgsxHM RICARDO HOY .Facility:K6Usbbs: 11-25-2022 End: 60-59-2181ucgaaupwsmPA RICARDO HOY .Facility:A6Twchx: 28-81-7323kjjcipbqce DR RICARDO RAMOS .Facility:J2Olkak: 09-12-2022 End: 39-13-5000ahopgkooydYF DOUGLAS HOY .Facility:T6Txcfc: 08-05-2022 End: 35-11-0773sgqyfmtsxnMGSLC [facility] Hospitaltart: 07-25-2022 End: 42-09-1447apujbeoiuqRMSQXQF M HOYMercy [facility] Amador Hospitaltart: 07-25-2022 End: 28-57-8499Dxzrvjjbu department patient visitMicjordan Horner MD Work Phone: stvZ 3C ObservationComment on above:Nephrostomy complication (HCC) (Primary Dx)Start: 07-18-2022 End: 76-99-4842Wkdydhiqkx and management of inpatientSALEENEIDA BERRYMercy Health [facility] Medical Centertart: 07-18-2022 End: 99-92-6796Wrlhqctbeg and management of inpatientStuan Bird MDSTVZ 5C StepdownComment on above:Kidney stone (Primary Dx); Acute pyelonephritis; Left renal atrophy; Staghorn renal calculus; OMAR (acute kidney injury) (HCC)Start: 07-18-2022 End: 58-28-5831fvqcofhvoiRF DOUGLAS HOY .Facility:T1Srflk: 04-15-2022 End: 91-77-5338dygexrzpinNR DOUGLAS HOY .Facility:U4Sinrv: 08-04-9353wbxiqmdfus DR RICARDO RAMOS .Facility:W9Lsqea: 02-15-2019 End: 78-58-2701vubxrehuubMIJAXAG HOYFacility:[facility] Procedures DateProcedureProcedure DetailPerforming ClinicianStart: 74-67-0577Nmgpjmz quantitative blood xcpt reagent Anastacio Brar MD Work Phone: Start: 09-03-2025 End: 99-47-4324Feivyehklujhb metabolic panelBishnu Thompson [employer] ANALYST-COMMODITIES REQUIREMENTS ANALYST, DNP Work Phone: Start: 19-69-8925Heeeosm quantitative blood xcpt reagent Anastacio Brar MD Work Phone: Start: 64-57-7445Mnpnq panelSylvie Schulz [employer] ANALYST-COMMODITIES REQUIREMENTS ANALYST Work Phone: Start: 09-02-2025 End: 79-91-0154Dftwj function panelJenoy Sakshi Baren [employer] ANALYST-COMMODITIES REQUIREMENTS ANALYST Work Phone: [phone]: 47-13-9373Eshthlw quantitative blood xcpt reagent stripJenna Brar MD Work Phone: [phone]: 27-79-7283ERJBW TUBESJenna Brar MD Work Phone: [phone]: 12-31-2098MDJGQTRA Raj Brar MD Work Phone: [phone]: 22-70-7929WAL Raj Brar MD Work Phone: [phone]: 09-02-2025 End: 49-89-6798Klgxmqezvfihz metabolic panelMichael J Donna DENGN-COMMODITIES REQUIREMENTS ANALYST, DNP Work Phone: [phone]: 14-62-7351Hgnpqbp quantitative blood xcpt reagent stripJenna Brar MD Work Phone: [phone]: 54-49-7122Nkzdiwo quantitative blood xcpt reagent stripMertert Boni Brar MD Work Phone: [phone]: 37-75-6341Vvwawed quantitative blood xcpt reagent stripJenna Brar MD Work Phone: [phone]: 09-01-2025 End: 80-09-4418Lnapmtx assayMichael J Donna DENGN-COMMODITIES REQUIREMENTS ANALYST, DNP Work Phone: [phone]: 72-71-0623Ogv routine ecg w/least 12 lds trcg only w/o i&rMichabe Thompson APRN-COMMODITIES REQUIREMENTS ANALYST, DNP Work Phone: [phone]: 52-78-6244Pnvakehnkcgid metabolic panelMichael J Donna DENGN-COMMODITIES REQUIREMENTS ANALYST, DNP Work Phone: [phone]: 95-11-5420JPL shape Nom (Bld)Kevin Lionetti [employer] ANALYST-COMMODITIES REQUIREMENTS ANALYST, DNP Work Phone: [phone]: 12-19-2347Dqbydth assayMichael Marcella Thompson [employer] ANALYST- COMMODITIES REQUIREMENTS ANALYST, DNP Work Phone: [phone]: 54-48-5813Etzjpvw quantitative blood xcpt reagent stripRobert Boni Lou MD Work Phone: [phone]: 28-83-2133Eqrhcvs quantitative blood xcpt reagent stripRobert Boni Lou MD Work Phone: [phone]: 87-69-2558Pjelvbq assayMichael J Elysiavania [employer]OP[employer] ANALYST- COMMODITIES REQUIREMENTS ANALYST, DNP Work Phone: [phone]: 52-73-6727Cvlfbko quantitative blood xcpt reagent stripRobert Boni Lou MD Work Phone: [phone]: 08-31-2025 End: 70-32-4307Flhocpajbdhbo metabolic panelMichael Marcella Kooclare [employer] ANALYST-COMMODITIES REQUIREMENTS ANALYST, DNP Work Phone: [phone]: 87-90-7426Dny routine ecg w/least 12 lds trcg only w/o i&rMichael Marcella Elysiasonalclare [employer] ANALYST-COMMODITIES REQUIREMENTS ANALYST, DNP Work Phone: [phone]: 53-80-8936Urcgyay quantitative blood xcpt reagent stripRobert Boni Lou MD Work Phone: [phone]: 96-58-0118Ngfmrtc assayMichael J Donna [employer]OP[employer] ANALYST- COMMODITIES REQUIREMENTS ANALYST, DNP Work Phone: [phone]: 38-17-3322Lggrman quantitative blood xcpt reagent stripRobert Boni Lou MD Work Phone: [phone]: 10-19-1807Fab routine ecg w/least 12 lds trcg only w/o i&rMichael Marcella Thompson APRN-COMMODITIES REQUIREMENTS ANALYST, DNP Work Phone: Start: 37-71-5631Xnmsuwa bacterial quanttative colony count Gustavo Rendon PEOPLESOFT ANALYST-[facility] Work Phone: [phone]: 66-41-3998TBXUP URINE TOPETE TUBESkayleigh Kamara Justice [employer]OP[employer] ANALYST-[facility] Work Phone: [phone]: 08-41-2434Gholmkrqqi complete W Reflex Culture panel - UrineSara Kamara Justice [employer] ANALYST-COMMODITIES REQUIREMENTS ANALYST Work Phone: [phone]: 81-66-2222Vqhszoxrrs microscopic panel - Urine Qualitative by AutomatedSara Kamara Justice [employer]OP[employer] ANALYST-[facility] Work Phone: [phone]: 08-30-2025 End: 05-36-5603Ehgenkfyxxp timeSkayleigh E Justice [employer]OP[employer] ANALYST-[facility] Work Phone: [phone]: 08-30-2025 End: 52-01-4382Qjpbejkbggxpw metabolic panelMichael Marcella Thompson APRN-[facility], [facility] Work Phone: [phone]: 37-94-4314Qqvalwe function panelMichael J [facility] PEOPLESOFT ANALYST-[facility], [facility] Work Phone: [phone]: 45-32-5483Feorycof urineMichael J Lionei [employer]OPLESOFT ANALYST-[facility], DNP Work Phone: Start: 26-43-8491Qego tst prsmv instrmnt chem analyzers pr Abel Kamara Justice [employer]OPLESOFT ANALYST-[facility] Work Phone: [phone]: 70-73-5961CkbtmglepzWxzhmmp J Donna PEOPLESOFT ANALYST- [facility], [facility] Work Phone: [phone]: 80-25-8412Qjnko dip stick/tablet reagent auto microscopyMichael J Lionettclare [employer]OP[employer] ANALYST-COMMODITIES REQUIREMENTS ANALYST, DNP Work Phone: Start: 32-00-1152Hakrcud quantitative blood xcpt reagent stripSpencer Kong MD Work Phone: Start: 08-29-2025 End: 03-05-6940Lgmdflm quantitative blood xcpt reagent stripSpencer Kong MD Work Phone: Start: 91-50-1826Davvfaa quantitative blood xcpt reagent stripSpencer Kong MD Work Phone: Start: 08-29-2025 End: 07-50-2011Lmowwab assayBishnu DAVID DNP Work Phone: Start: 08-29-2025 End: 08-33-5880Dqc routine ecg w/least 12 lds trcg only w/o i&rMmichelle DAVID, [facility] Work Phone: Start: 29-78-8551Litaseilbvahf metabolic panelYusef Elba Cortes MD Work Phone: Start: 49-87-3415Dkz routine ecg w/least 12 lds trcg only w/o i&rMmichelle DAVID, [facility] Work Phone: Start: 86-66-3730Qhvhrsc quantitative blood xcpt reagent stripSpencer Kong MD Work Phone: Start: 55-57-6193Nqprqx scan extracranial art compl bi studyBishnu DAVID, [facility] Work Phone: Start: 08-28-2025 End: 61-88-9729Zykssfxahwb time activatedSpencer Kong MD Work Phone: Start: 08-28-2025 End: 32-75-5018Thdpmbf serum plasma/whole bloodNickay Burkett DO Work Phone: Start: 27-32-3819DH Heart TransthoracicNawaf Shanon Abraham MD Work Phone: Start: 22-18-6250Auusfhx quantitative blood xcpt reagent stripSpencer Kong MD Work Phone: Start: 14-33-3060Nagxhmngdx exam chest single view Shan Amor MD Work Phone: Start: 89-64-4939Okm routine ecg w/least 12 lds trcg only w/o i&rMichael Marcella DAVID, [facility] Work Phone: Start: 08-28-2025 End: 85-77-3935Fdpiu of phosphorus inorganicManuel De León MD Work Phone: Start: 08-28-2025 End: 94-15-6858Jgeqbxtgx directMichael J Donna DAVID, [facility] Work Phone: Start: 14-44-1265Mch routine ecg w/least 12 lds trcg only w/o i&rMichael Marcella DAVID, [facility] Work Phone: Start: 53-76-3932Inkik of troponin quantitativeManuel De León MD Work Phone: Start: 62-22-9365Zcjbmtg quantitative blood xcpt reagent stripJuwill Kong MD Work Phone: Start: 27-24-0444Juaam of troponin Vicky Abraham MD Work Phone: Start: 08-27-2025 End: 02-86-1932Komzbcil Alhaji DAVID, [facility] Work Phone: Start: 22-32-8934Tuphi blood ph direct santi xcpt pulse oximitryJuwill Kong MD Work Phone: Start: 42-33-1209Xv retroperitoneal real time w/image completeThaiuselisa Cortes MD Work Phone: Start: 77-97-6263Wdrvgxcj Alhaji CARDENAS CNP, [facility] Work Phone: Start: 72-09-6885Vpw routine ecg w/least 12 lds trcg only w/o i&rNawalisa O Leigh FRANKS Work Phone: Start: 08-27-2025 End: 93-87-0440Ypysjzoc Chayabe Naranjo Donna [facility], [facility] Work Phone: [phone]: 08-27-2025 End: 50-82-4506Eccqzxxl mirianWendi Naranjo Elysiasonalclare [facility], [facility] Work Phone: [phone]: 08-27-2025 End: 96-68-5714Gfykyao assayMichael Marcella JuanAtrium Health Mercy, [facility] Work Phone: [phone]: 78-59-5255Wchhh of troponin quantitativeManuel De León MD Work Phone: [phone]: 03-38-2854Mzw routine ecg w/least 12 lds trcg only w/o i&rMichabe Marcella Thompson [facility], [facility] Work Phone: [phone]: 08-27-2025 End: 46-85-4102Qccaemztz serum plasma/whole bloodDavid Cortes MD Work Phone: [phone]: 84-74-0280Jeitvmkgkg exam chest single view David Cortes MD Work Phone: [phone]: 11-20-8868Yhuqzzi ionizedManuel De León MD Work Phone: Start: 43-08-0274Kmho transthorc r-t 2d w/wo m-mode rec f-up/lmtdMattantonio De León MD Work Phone: [phone]: 03-52-2205OTBJL/VERIFY ABORHYkaroline Cortes MD Work Phone: [phone]: 03-14-8152Kwyuf typing serologic rh (d)David Cortes MD Work Phone: Start: 08-26-2025 End: 69-47-2668Apqrpcpa blKenny Cortes MD Work Phone: Start: 33-26-3066Nezyxwu blood reagent stripPaloma Arceo MD Work Phone: Start: 90-84-3116Cuugnq int dwell ureteral stent transurethralPaloma Arceo MD Work Phone: Start: 56-98-0482Nfscfvbpdli timeDaniel Strbich DO Work Phone: Start: 59-34-4343Rrwwhadvhc exam abdomen 1 viewDaniel Strbich DO Work Phone: Start: 84-71-8032Wveuphc blood reagent stripSastrid Cantrell MD Work Phone: Start: 07-22-2022 End: 01-29-5835Nahpl of Mabel Ferrari MD Work Phone: Start: 54-76-1741UXIZH METABOLIC PANEL W/ REFLEX TO MG FOR LOW KSmarks Óscar FRANKS Work Phone: Start: 90-70-2849Tqoqx of Mabel Ferrari MD Work Phone: Start: 97-65-5856Ttcdqvs blood reagent stripSastrid Cantrell MD Work Phone: Start: 63-95-7118Fnsic of Mabel Ferrari MD Work Phone: Start: 75-20-7934Hybybih blood reagent stripSastrid Cantrell MD Work Phone: Start: 59-10-3824BPBWL METABOLIC PANEL W/ REFLEX TO MG FOR LOW KPben Ferrari MD Work Phone: Start: 19-47-7553Mvacp of Mabel Ferrari MD Work Phone: Start: 98-96-8992Miqsorf blood reagent stripSastrid Cantrell MD Work Phone: Start: 07-21-2022 End: 14-27-1161Yxrfl of Mabel Ferrari MD Work Phone: Start: 40-67-8329DUUNY METABOLIC PANEL W/ REFLEX TO MG FOR LOW KPreevince Ferrari MD Work Phone: Start: 79-23-7431Dgdlr of lactateBrooklynn Ferrari MD Work Phone: Start: 00-16-4094DMMFE METABOLIC PANEL W/ REFLEX TO MG FOR LOW KPreevince Ferrari MD Work Phone: Start: 49-32-3038Xxgcdqq blood reagent stripSastrid Cantrell MD Work Phone: Start: 78-52-4825Yasxn of lactateBrooklynn Ferrari MD Work Phone: Start: 98-78-4774Mfzmswe blood reagent stripSastrid Cantrell MD Work Phone: Start: 07-20-2022 End: 87-68-4578PLCBUJG, BLOOD 1Luis E Sourav FRANKS Work Phone: Start: 91-28-5182Zynsi dip stick/tablet reagent auto microscopyShahid Do MD Work Phone: Start: 25-13-8871IAVVUKYAJAYBYY SERUM PROFILEShahid Do MD Work Phone: Start: 07-20-2022 End: 29-03-8187Mjlrriq electrophoretic fractj&quantj serumShahid Do MD Work Phone: Start: 18-80-3434OFXHU METABOLIC PANEL W/ REFLEX TO MG FOR LOW KPreevince Ferrari MD Work Phone: Start: 76-33-3403Jbkaq gases any combination ph pco2 po2 co2 lje7Gxhwjhunter Walsh MD Work Phone: Start: 07-20-2022 End: 03-22-6051Dvtpdrmjtu antigen each componentBrooklynn Ferrari MD Work Phone: Start: 38-54-2841QCLIXTWF PLATELET FRACTIONPrevini Ferrari MD Work Phone: Start: 07-20-2022 End: 33-19-9828Mzhfxyleel other sourcePrevini Ferrari MD Work Phone: Start: 96-86-2628HVRON METABOLIC PANEL W/ REFLEX TO MG FOR LOW KPreevince Ferrari MD Work Phone: Start: 40-78-3444Otolmlr blood reagent Vilma Cantrell MD Work Phone: Start: 92-91-8985Ti retroperitoneal real time w/image limitedPrevini Ferrari MD Work Phone: Start: 21-68-1645Pwlkoak blood reagent stripSastrid Cantrell MD Work Phone: Start: 20-56-2351Bxgrvundag exam chest single view Marisol Peres MD Work Phone: Start: 22-55-0132Fhx routine ecg w/least 12 lds i&r onlyMarisol Peres MD Work Phone: Start: 29-42-7770TVIHV METABOLIC PANEL W/ REFLEX TO MG FOR LOW KSastrid Cantrell MD Work Phone: Start: 73-76-5045Aljhl count complete auto&auto difrntl wbcLivia Cantrell MD Work Phone: Start: 61-87-5296Mvtezio bacterial blood aerobic w/id isolatesLivia Cantrell MD Work Phone: Start: 52-17-6200SFFQPWQ, BLOOD 1Sastrid Cantrell MD Work Phone: Start: 93-32-0361QPZTLXR, SEPSISSrleonor Cantrell MD Work Phone: Start: 07-20-2022 End: 32-11-0448Qeaet metabolic panel calcium totalMarisol Peres MD Work Phone: Start: 77-60-9774Tyjidbr blood reagent stripSastrid Cantrell MD Work Phone: Start: 66-47-8173Aqsiyrf blood reagent stripSastrid Cantrell MD Work Phone: Start: 37-47-1981Yjzp nephrostomy cath prq new access rs&iSrkarina Clay MD Work Phone: Start: 47-38-4496Pcsugon blood reagent stripSastrid Cantrell MD Work Phone: Start: 07-19-2022 End: 09-05-9105Vubzdftwjxp Samanonia Robson DO Work Phone: Start: 61-53-0090YLJJY METABOLIC PANEL W/ REFLEX TO MG FOR LOW KSastrid Cantrell MD Work Phone: Start: 66-95-3869Thzjb count complete auto&auto difrntl wbcSrinivas Óscar FRANKS Work Phone: Start: 51-55-2026Asesy dip stick/tablet reagent auto microscopyPrevini Ferrari MD Work Phone: Start: 11-40-5422Fogaknh blood reagent stripSastrid Cantrell MD Work Phone: Start: 07-18-2022 End: 13-31-5584Ookp bld gluc mntr dev cleared fda spec home usePrevini Ferrari MD Work Phone: Start: 07-18-2022 End: 05-27-1450DTCQSDW, BLOOD 1Preevince Ferrari MD Work Phone: Start: 38-77-8423Ckrsunutffj Billie Ennis MD Work Phone: Start: 20-41-6576Hkigguk bacterial quanttative colony count urinePreviin Ferrari MD Work Phone: Start: 55-73-4770TLFII METABOLIC PANEL W/ REFLEX TO MG FOR LOW KBrooke Ennis MD Work Phone: Start: 00-24-7438Rdvzy count complete auto&auto difrntl wbcBrooke Ennis MD Work Phone: Plan of Treatment DateCare ActivityDetailAuthorStart: 09-59-4196Ivsja panelUnSt. Anthony's Hospital: 98-05-4144Nlfgopkp mellitus screeningMount St. [facility]: 71-21-6142UbeqvuudtcMount St. Mary Hospital: 08-26-2025 [facility]: 75-94-5742GferdmyxcCleveland Clinic [facility]or [facility]: 85-66-1794Nlzxb cultureCleveland Clinic Mentor Hospital[facility]art: 83-01-1436Hwqochbj admissionCleveland Clinic Mentor Hospitaltart: 08-25-2025 Referral to cardiologistCleveland Clinic [facility] Hospital[facility]: 08-25-2025 [facility]: 92-68-1231MnqbabcmyiMount St. Mary Hospital: 39-15-2711Ndqxfsrme vaccinationGreen Cross Hospital Start: 08-23-2022 End: 78-48-6818Gvmsryc encounter opmzgvfyr06/18/2022 Office Visit Infectious Diseases Urban Noriega MD [address] [place] [address] [facility].Start: 08-03-2022 End: 72-85-6084HI KIDNEY W FLOW AND FUNCTION W PHARMACOLOGICAL INTERVENTIONNM KIDNEY W FLOW AND FUNCTION W PHARMACOLOGICAL INTERVENTION Imaging Routine Left renal atrophy Staghorn renal calculus Expected: 08/03/2022, Expires: 07/20/2023 [employer] Phone: comment on above:Expected: 08/03/2022, Expires: 07/20/2023Start: 07-29-2022 End: 73-48-3060Nilrd metabolic 2000 panel - Serum or PlasmaBasic Metabolic Panel Lab Routine OMAR (acute kidney injury) (HCC) Expected: 07/29/2022, Expires: ON [employer] Phone: comment on above:Expected: 07/29/2022, Expires: 07/22/2023Start: 51-88-0910Qaefgdhew vaccinationFlu vaccine (#1)[facility]: 02-88-2009Wjljnbtdt for malignant neoplasm of breastBreast cancer screenSpotsylvania Regional Medical Center: 22-76-8963Qosfymyw vaccine (1 of 2) Shingles vaccine (1 of 2)[facility]: 51-43-3484JntexqjpivMount St. Mary Hospital: 27-93-9148Wbykfsoan for malignant neoplasm of colon [facility]: 45-68-4285Hqxhswbsi for malignant neoplasm of breastUnSt. Anthony's Hospital: 97-92-4252Fgzwkvaln for malignant neoplasm of cervixSpotsylvania Regional Medical [facility]: 28-23-4816Bzgbsogsb for malignant neoplasm of cervixSpotsylvania [facility]: 1990 DTaP/Tdap/Td vaccine (1 - Tdap)DTaP/Tdap/Td vaccine (1 - Tdap)[facility]: 74-04-6294Vjdkjyyli B vaccine (1 of 3 - Risk 3-dose series) Hepatitis B vaccine (1 of 3 - Risk 3-dose series)[facility]: 48-10-9665Jnphb screening for proteinUnSt. Anthony's Hospital: 69-59-2307BrcsraenopMount St. Mary Hospital: 14-35-6406Odydwxke retinal examDiabetic retinal examSpotsylvania Regional Medical Center: 98-67-1208Bqlufyhin C screeningMount St. Mary [facility]: 74-25-8088Xudev screening for proteinDiabetic microalbuminuria testSpotsylvania Regional Medical [facility]: 1986 HIV screeningHIV screenSpotsylvania Regional Medical [facility]: 31-07-5626Laxuklzfrm MonitoringDepression MonitoringSpotsylvania Regional Medical Center: 90-91-1752Hmkrscnh foot examinationDiabetic foot examSpotsylvania Regional Medical Center: 1981 Hemoglobin A1c obianrpdlycQ5G test (Diabetic or Prediabetic)[facility]: 82-90-4206Exobb panelLipidsSpotsylvania Regional Medical Center: 37-10-1652Kwnqodjtxvzo 0-64 years Vaccine (1 - PCV)Pneumococcal 0-64 years Vaccine (1 - PCV)[facility]: 32-69-9422RSAYG-19 Vaccine (#1) COVID-19 Vaccine (#1)[facility]: 54-79-4355QGD screening [facility]: 23-74-0913Bfbpkzsek for malignant neoplasm of colonMount St. Mary Hospital: 84-27-3488Hihhrdi stimulating hormone measurementMount St. Mary Hospital: 48-66-4027DwljpdrvjuGreen Cross Hospital End: 33-47-6581Ewssd Metabolic Panel w/ Reflex to MGBasic Metabolic Panel w/ Reflex to MG Lab Routine Daily for 14 Occurrences starting 07/19/2022 until 08/01/2022, 3 [facility] [employer] [facility] Work Phone: Comment on above:Daily for 14 Occurrences starting 07/19/2022 until 08/01/2022, 3 completedCBC W Auto Differential panel - Blood [facility] Work Phone: Culture, Blood 1[facility] Work Phone: culture, Blood 1Culture, Blood 1 Microbiology STAT 07/20/2022 4:26 [facility] [employer] [facility] Work Phone: culture, Blood 1[facility] [employer] [facility] Work Phone: culture, Blood 2Culture, Blood 2 Microbiology STAT 07/20/2022 4:26 AM [facility]DSMY[facility] [employer] [facility] Work Phone: eCX 12 [facility] Work Phone: ecg 12 [facility] Work Phone: ECZ 12 [facility] Work Phone: ecg 12 [facility] Work Phone: Electrocardiogram, 12-lead PRN ACS symptomsGreen Cross Hospital Work Phone: Electrocardiogram, 12-lead PRN ACS symptomsGreen Cross Hospital Work Phone: Glucose [Mass/volume] in Serum or PlasmaBON [facility] Work Phone: comment on above:4X Daily (AC & HS) until discontinued starting 07/18/2022, 1 completedAs Needed until discontinued starting 07/18/2022Glucose [Mass/volume] in Serum or PlasmaPOCT Glucose Point of Care Testing STAT As Needed until discontinued starting 07/26/2022 [facility] Work Phone: comment on above:As Needed until discontinued starting 07/26/2022Glucose [Mass/volume] in Serum or PlasmaCl[facility] Work Phone: Glucose [Mass/volume] in Serum or PlasmaGreen Cross Hospital Work Phone: Hepatic function 1999 panel - Serum or Plasma [facility] Work Phone: Magnesium [Mass/volume] in Serum or PlasmaGreen Cross Hospital Work Phone: Oxygen therapy [Minimum Data Set]Initiate Oxygen Therapy Protocol Respiratory Care Routine As Needed until discontinued starting 07/18/2022 [facility] Work Phone: comgtew on above:As Needed until discontinued starting 2Oxygen therapy [Minimum Data Set]Initiate Oxygen Therapy Protocol Respiratory Care Routine Daily until discontinued starting 07/25/2022 [facility] Work Phone: comhdis on above:Daily until discontinued starting 2PT and aPTT panel - Platelet poor plasma by Coagulation assayClifton-Fine Hospital Work Phone: Renal function 1999 panel - Serum or PlasmaGreen Cross Hospital Work Phone: Immunizations Immunization DateImmunizationNotesCare BrnmsdksAdiulslo33-08-0042qyfkcgr toxoid, reduced diphtheria toxoid, and acellular pertussis vaccine, adsorbedAziz Bakhous Other [facility] Payers DatePayer CategoryPayerPolicy [id number]-mib [id number] Health Insurance [id number] 2.16.840.6.00214[id number] 2.16840.1.618209.3.579.2.647 [id number] 2.16.840.1.846105.3.579.2.56585-36-6562Pyxvwtm [id number] 2.16840.1.692076.3.57[id number] 2.840.1.965908.3.57[id number] 2.16840.1.063798.3.57[id number] 2.16840.1.477885.3.57[id number] 2.16.840.1.356399.3.57[id number] 2.16840.1.737119.3.57[id number] 2.16840.1.230111.3.57[id number] 2.16840.1.226772.3.57[id number] 2.16840.1.046573.3.57[id number] 2.16840.1.644383.3.57[id number] 2..840.1.791376.3.57[id number] 2.16.840.1.900325.3.57[id number] 2..840.1.738067.3.57[id number] 2..840.1.331709.3.57[id number] 2.16.840.1.503950.3.579.2.890839-14-1938Guox-fxw28866789233-21-1682Peuzgbl [id number]-6g3w-9456-65747[id number] [id number] 2.0.1.585240.3.579.2.531 Social History DateTypeDetailFacilityTobacco smoking status NHISUnknown if ever smokedMedina Hospital CtrStart: 37-92-4819Zrg Assigned At [facility] CenterTobacc smoking status NHISTobacco smoking consumption [facility] [employer] Work Phone: start: 09-08-7932Vga Assigned At BirthNot on fileVERDE VALLEY MED[facility] [employer] Work Phone: start: 07-08-2022 End: 70-91-0272Yuseopbs to SARS-CoV-2 (event)Not sureVERDE VALLEY MEDICAL CENTER [employer] Start: 08-26-2025 End: 93-97-4970Ajk Assigned At [facility] [employer] Other Start: 08-26-2025 End: 53-82-5458Ppqhdce smoking status NHISNever smoked tobacco (finding) [facility]: 70-71-4185NgtDjthzj (finding)[facility]: 19-91-2802Qgivpsq use and exposureSmokeless tobacco non-userUnAshtabula County Medical Center Work Phone: Start: 83-20-2437Iublppxvx beverage intakeLifetime non-drinker (finding)[facility] Work Phone: Start: 08-26-2025 End: 30-61-3563Vfmrqvx of Social functionUnAshtabula County Medical Center Work Phone: Within the last year, have you been afraid of your partner or ex-partner?NoUnAshtabula County Medical CenterAre you now , , , , never or living with a partner? [facility] Work Phone: How often do you have a drink containing alcohol?Never [facility] Work Phone: How many standard drinks containing alcohol do you have on a typical day?[facility] Work Phone: How hard is it for you to pay for the very basics like food, housing, medical care, and heatingNot very hardUnAshtabula County Medical Center Work Phone: (I/We) worried whether (my/our) food would run out before (I/we) got money to buy more.Never trueUnAshtabula County Medical Center Work Phone: Goals DatePatient GoalDesired Activity/State Functional Status DtxxFuhgiygbdxWpxemuKpmtuabl36-23-2528Auucabedsz tuxljw564/85UnAshtabula County Medical Center10-29-2025Vital signsUnAshtabula County Medical Center Work Phone: [phone]090Ckoefubtnp eqackb9TmzvphrospAshtabula County Medical Center Work Phone: [phone]-8297XvggmugyxvAshtabula County Medical Center Work Phone: [phone]jleypAshtabula County Medical Center Work Phone: [phone]im score [AUDIT-C][facility] Work Phone: [phone]sod Health Questionnaire 2 item (PHQ-2) [Reported][facility] Work Phone: [phone] - suicide severity rating scale screener - recent [C-SSRS][facility] Work Phone: [phone]rm statusUnAshtabula County Medical Center Work Phone: Mental Status AtazAxmaidiztgHqxmapOvarixau98-02-3144Lkgnjfrxc function findingNegative [facility] Work Phone: [phone]q function findingUnAshtabula County Medical Center10-21-2025Cognitive function findingNegativeGreen Cross Hospital Work Phone: [facility] Work Phone: Clinical Notes 03-31-2021 to 09-11-2025 Note Date & KwyfZepiGpjdegka12-94-4524 NoteSUBJECTIVE Reason for Visit: Asa Thompson is a 54 y.o. year old female patient being seen for follow-up NSTEMI at HPI: Asa Thompson is a 54 y.o. year old female with significant medical history of coronary artery disease, hypertension, hyperlipidemia, and diabetes. Pt presented to [facility] on 08/25 for 3 days of EY, found to have NSTEMI, s/p JOSELITO to RCA on 08/26 c/b distal RCA lesion dissection, stent embolization, and spiral dissection, STEMI type 4 A. IABP was placed and patient was transferred to [facility] 08/[address] surgery evaluation. Per Cardiac Surgery, given isolated RCA lesion, CABG not recommended. Plavix was discontinued, patient was loaded with Brilinta and continued on maintenance dosing. Any further treatment would likely need to be done via interventional team, if indicated. 09/11/2025 office visit: Patient seen and evaluated in the office today for follow-up after recent NSTEMI at . She reports mild dyspnea on exertion with ADLs, though this has shown some improvement over the past week. She otherwise denies chest pain, palpitations, lightheadedness, dizziness, or lower-extremity edema. 09/02/2024 office visit (Dr. Hudson): Chief Complaint: New patient here to establish care. Ref from Dr. Ramos for abnormal echo performed at [facility] last month while inpatient. She was discharged on Eliquis and Plavix. She denies chest pain, but gets SOB w/ exertion. No bleeding issues. Medical History[1] Surgical History[2] Problem List[3] family history includes CABG x3 in her father; Coronary artery disease in her father. Social History[4] OBJECTIVE Visit Vitals OB Status Hysterectomy Smoking Status Never Physical Exam Constitutional: General Appearance: well-developed, appears stated age. Level of Distress: no acute distress. Neck: Jugular Veins: normal jugular venous pressure. Lungs: Auscultation: no rales or rhonchi and normal breath sounds. Cardiovascular: Rate And Rhythm: regular Heart Sounds: normal S1 and s2; Systolic Murmur: not heard. Diastolic Murmur: not heard. Extremities: no edema Peripheral Pulses: Pulses: full and equal in all extremities except if noted. Abdomen: Inspection and Palpation: non distended or tender and soft. Musculoskeletal: Inspection: no joint tenderness or swelling. Neurologic: Gait: normal gait. Psychiatric: Mental Status: alert and normal affect. Skin: Inspection and Palpation: warm and dry. Allergies: Allergies[5] Outpatient Medications: Current Outpatient Medications Medication Instructions aspirin 81 mg, oral, Daily atorvastatin (Lipitor) 20 mg tablet atorvastatin 20 mg tablet atorvastatin (LIPITOR) 80 mg, oral, Daily clopidogrel (PLAVIX) 75 mg, oral, Daily DULoxetine (CYMBALTA) 60 mg, oral, Daily, Do not crush or chew. furosemide (LASIX) 20 mg, oral, Daily gabapentin (NEURONTIN) 600 mg, oral, 4 times daily hydrALAZINE (Apresoline) 25 mg tablet oral, Once Daily hydroCHLOROthiazide (HYDRODIURIL) 25 mg, oral, Daily insulin NPH and regular human (HumuLIN 70/30 U-100 Insulin) 100 unit/mL (70-30) injection 70 units in AM 30 units pm as needed levothyroxine (Synthroid, Levoxyl) 175 mcg tablet levothyroxine 175 mcg tablet losartan (COZAAR) 100 mg, oral, Daily magnesium oxide (MAG-OX) 400 mg, oral metFORMIN (Glucophage) 500 mg tablet metformin 500 mg tablet Ozempic 2 mg/dose (8 mg/3 mL) pen injector INJECT 2 MG UNDER THE SKIN ONCE A WEEK Vitamin D3 25 mcg, oral, Daily Recent Labs: No visits with results within 6 Month(s) from this visit. Latest known visit with results is: Admission on 10/26/2022, Discharged on 10/27/2022 Component Date Value ABO Grouping 10/26/2022 A Rh Type 10/26/2022 POS Ab Scrn 10/26/2022 NEG SARS-CoV-2 Ag POC 10/26/2022 Negative Glucose POC 10/26/2022 165 (H) Glucose POC 10/26/2022 102 pH, Arterial 10/26/2022 7.40 pCO2, Arterial 10/26/2022 34 (L) pO2, Arterial 10/26/2022 197 (H) HCO3, Arterial 10/26/2022 21.1 Total Hemoglobin 10/26/2022 9.4 (L) O2 Sat, Arterial 10/26/2022 99.3 (H) Carboxyhemoglobin 10/26/2022 1.0 Methemoglobin 10/26/2022 1.1 Deoxyhemoglobin 10/26/2022 0.7 (L) Base Excess, Arterial 10/26/2022 -3.2 (L) Source Of Oxygen 10/26/2022 Vent Oxyhemoglobin 10/26/2022 97.3 (H) Calcium, Ion 10/26/2022 1.14 (L) Sodium, Whole Blood 10/26/2022 140 Potassium, Whole Blood 10/26/2022 3.4 (L) Glucose POC 10/26/2022 139 (H) Glucose POC 10/26/2022 135 (H) pH, Arterial 10/26/2022 7.32 (L) pCO2, Arterial 10/26/2022 40 pO2, Arterial 10/26/2022 202 (H) HCO3, Arterial 10/26/2022 20.6 (L) Total Hemoglobin 10/26/2022 10.8 (L) O2 Sat, Arterial 10/26/2022 100.0 (H) Carboxyhemoglobin 10/26/2022 1.4 Methemoglobin 10/26/2022 1.5 Deoxyhemoglobin 10/26/2022 0 (L) Base Excess, Arterial 10/26/2022 -5.1 (L) Source Of Oxygen 10/26/2022 Vent Oxyhemoglobin 10/26/2022 97.1 (H) Calcium, Ion 10/26/2022 1.08 (L) (more content not included)...[facility]10-29-2025 Nurse Note* Wen Pérez RN - 09/03/2025 1:00 PM EDT 09/03/2025 @ 1315: Nursing discharge note - Peripheral IV s removed with catheters intact. Dry dressings applied to sites. Discharge instructions reviewed with patient. All questions and concerns addressed at this time. Patient provided with all vwuu-qa-fpfm medications by JOANN Bay. Praful bustos discharged home with all belongings and prescriptions. Wen Pérez RN. documented in this [facility] Work Phone: [phone] History of Present illness Narrative* Geno Thomas RN - 09/03/2025 12:49 PM EDT 09/03/25 1249 Rapid Rounds Attendance Provider;Nurse;Care Transitions Expected Discharge Disposition Home Today we still await: Other (Comment) (d/c home, no needs identified) Review at Escalation Rounds No escalation needed Pt denies any needs at discharge. Declined [facility]. * JOANN Alvarez - 09/02/2025 3:22 PM EDT Subjective Data: Patient seen and assessed this morning, sitting at edge of bed, NAD. Denies any CP or SOB. Patient remains calm and cooperative today, still eager to get home. Updated on plan of care. Overnight Events: No acute events overnight Today's Plan/Updates: - Na, Cr cont to improve - pending evening renal function will transition to home Eliquis (per pharm, $10/mo w/copay card) - INR today 1.2, increase Warfarin to 7.5 mg tonight (if cr not improved) Overnight Events: No acute events overnight. Objective Data: Last Recorded Vitals: Vitals: 09/01/25 1920 09/02/25 0052 09/02/25 0725 09/02/25 1110 BP: 141/71 119/61 164/82 152/71 BP Location: Left arm Left arm Patient Position: Lying Lying Pulse: 93 94 95 95 Resp: 16 16 Temp: 36.5 C (97.7 F) 36.5 C (97.7 F) 36.4 C (97.5 F) 36.2 C (97.2 F) TempSrc: Temporal Temporal SpO2: 94% 96% 96% 96% Weight: Height: Last Labs: Results for orders placed or performed during the hospital encounter of 08/26/25 (from the past 24 hours) POCT GLUCOSE Result Value Ref Range POCT Glucose 189 (H) 74 - 99 mg/dL POCT GLUCOSE Result Value Ref Range POCT Glucose 243 (H) 74 - 99 mg/dL POCT GLUCOSE Result Value Ref Range POCT Glucose 209 (H) 74 - 99 mg/dL CBC and Auto Differential Result Value Ref Range WBC 9.9 4.4 - 11.3 x10*3/uL nRBC 0.0 0.0 - 0.0 /100 WBCs RBC 3.42 (L) 4.00 - 5.20 x10*6/uL Hemoglobin 9.5 (L) 12.0 - 16.0 g/dL Hematocrit 29.5 (L) 36.0 - 46.0 % MCV 86 80 - 100 fL MCH 27.8 26.0 - 34.0 pg MCHC 32.2 32.0 - 36.0 g/dL RDW 12.9 11.5 - 14.5 % Platelets 442 150 - 450 x10*3/uL Immature Granulocytes %, Automated 2.8 (H) 0.0 - 0.9 % Immature Granulocytes Absolute, Automated 0.28 0.00 - 0.70 x10*3/uL Hepatic Function Panel Result Value Ref Range Albumin 3.3 (L) 3.4 - 5.0 g/dL Bilirubin, Total 0.7 0.0 - 1.2 mg/dL Bilirubin, Direct 0.1 0.0 - 0.3 mg/dL Alkaline Phosphatase 122 (H) 33 - 110 U/L ALT 13 7 - 45 U/L AST 13 9 - 39 U/L Total Protein 7.0 6.4 - 8.2 g/dL Magnesium Result Value Ref Range Magnesium 2.43 (H) 1.60 - 2.40 mg/dL Coagulation Screen Result Value Ref Range Protime 12.9 (H) 9.8 - 12.4 seconds INR 1.2 (H) 0.9 - 1.1 aPTT 45 (H) 26 - 36 seconds Phosphorus Result Value Ref Range Phosphorus 2.7 2.5 - 4.9 mg/dL Basic Metabolic Panel Result Value Ref Range Glucose 224 (H) 74 - 99 mg/dL Sodium 133 (L) 136 - 145 mmol/L Potassium 4.1 3.5 - 5.3 mmol/L Chloride 100 98 - 107 mmol/L Bicarbonate 23 21 - 32 mmol/L Anion Gap 14 10 - 20 mmol/L Urea Nitrogen 30 (H) 6 - 23 mg/dL Creatinine 2.03 (H) 0.50 - 1.05 mg/dL eGFR 29 (L) >60 mL/min/1.73m*2 Calcium 8.5 (L) 8.6 - 10.6 mg/dL Heparin Assay Result Value Ref Range Heparin Unfractionated 0.3 See Comment Below for Therapeutic Ranges IU/mL Manual Differential Result Value Ref Range Neutrophils %, Manual 74.2 40.0 - 80.0 % Bands %, Manual 0.0 0.0 - 5.0 % Lymphocytes %, Manual 10.8 13.0 - 44.0 % Monocytes %, Manual 8.3 2.0 - 10.0 % Eosinophils %, Manual 3.4 0.0 - 6.0 % Basophils %, Manual 0.8 0.0 - 2.0 % Atypical Lymphocytes %, Manual 0.0 0.0 - 2.0 % Metamyelocytes %, Manual 2.5 0.0 - 0.0 % Myelocytes %, Manual 0.0 0.0 - 0.0 % Plasma Cells %, Manual 0.0 0.00 - 0.00 % Promyelocytes %, Manual 0.0 0.0 - 0.0 % Blasts %, Manual 0.0 0.0 - 0.0 % Others %, Manual 0.0 % Seg Neutrophils Absolute, Manual 7.35 (H) 1.20 - 7.00 x10*3/uL Bands Absolute, Manual 0.00 0.00 - 0.70 x10*3/uL Lymphocytes Absolute, Manual 1.07 (L) 1.20 - 4.80 x10*3/uL Monocytes Absolute, Manual 0.82 0.10 - 1.00 x10*3/uL Eosinophils Absolute, Manual 0.34 0.00 - 0.70 x10*3/uL Basophils Absolute, Manual 0.08 0.00 - 0.10 x10*3/uL Atypical Lymphs Absolute, Manual 0.00 0.00 - 0.50 x10*3/uL Metamyelocytes Absolute, Manual 0.25 0.00 - 0.00 x10*3/uL Myelocytes Absolute, Manual 0.00 0.00 - 0.00 x10*3/uL Plasma Cells Absolute, Manual 0.00 0.00 - 0.00 x10*3/uL Promyelocytes Absolute, Manual 0.00 0.00 - 0.00 x10*3/uL Blasts Absolute, Manual 0.00 0.00 - 0.00 x10*3/uL Others Absolute, Manual 0.00 x10*3/uL Total Cells Counted 120 Neutrophils Absolute, Manual 7.35 1.20 - 7.70 x10*3/uL Manual nRBC per 100 Cells 0.0 0.0 - 0.0 % RBC Morphology No significant RBC morphology present Lavender Top Result Value Ref Range Extra Tube Hold for add-ons. PST Top Result Value Ref Range Extra Tube Hold for add-ons. POCT GLUCOSE Result Value Ref Range POCT Glucose 257 (H) 74 - 99 mg/dL TROPHS Date/Time Value Ref Range Status 08/31/2025 07:24 AM 11,777 0 - 34 ng/L Final 08/27/2025 09:53 PM 75,417 0 - 34 ng/L Final 08/27/2025 06:12 PM 81,323 0 - 34 ng/L Final Comment: Previous result verified on 08/26/2025 2317 on specimen/case [id number] called with component [facility] for procedure Troponin I, High Sensitivity with value 9,126 ng/L. BNP Date/Time Value Ref Range Status 08/26/2025 09:58 PM 104 0 - 99 pg/mL Final HGBA1C Date/Time Value Ref Range Status 08/26/2025 09:58 PM 10.2 See comment % Final Last I/O: I/O last 3 completed shifts: In: 1715.1 (14.7 mL/kg) [P.O.:1000; I.V.:715.1 (6.1 mL/kg)] Out: 1000 (8.6 mL/kg) [Urine:1000 (0.2 mL/kg/hr)] Weight: 116.9 kg Past Cardiology Tests (Last 3 Years): EKG: Electrocardiogram, 12-lead PRN ACS symptoms 08/30/2025 (Preliminary) Age and gender specific ECG analysis Sinus rhythm with marked sinus arrhythmia with 1st degree AV block 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) Inferior injury pattern ACUTE [place] Abnormal ECG When compared with ECG of 29-AUG-2025 06:20, QRS duration has increased QT has lengthened Confirmed by Elia Connell ([id number]) on 08/30/2025 7:50:04 PM Echo: Transthoracic Echo Complete 08/28/2025: 1. Left ventricular ejection fraction is normal [...] prior echo was a limited fellow study. Transthoracic Echo (TTE) Limited 08/26/2025: 1. The left ventricle was not well visualized. The left ventricular ejection fraction could not be measured. 2. There is moderate aortic valve cusp calcification. 3. There is moderate mitral annular calcification. Ejection Fractions: EF Date/Time Value Ref Range Status 08/28/2025 09:26 AM 58 % Cath: No results found for this or any previous visit from the past 1095 days. Stress Test: No results found for this or any previous visit from the past 1095 days. Cardiac Imaging: CT angio coronary art with heartflow if score >30% 08/03/2024 1. There is 60% right internal carotid artery stenosis. 2. There is 70-80% left internal carotid artery stenosis. 3. There is 50% proximal/prevertebral left subclavian artery stenosis. 4. Moderate stenosis of the left vertebral artery due to extrinsic compression from osteophytes at the C4-C5 level. Inpatient Medications: Scheduled Medications[1] PRN Medications[2] Continuous Medications[3] Physical Exam: General: NAD, lying in bed, obese Skin: warm and dry throughout, R groin site mild ecchymosis, dressing C/D/I without hematoma/oozing/tenderness Head/ neck: no JVD Cardiac: irregular rate and rhythm, AV block on tele HR 60s Pulm: CTAB, room air GI: soft, nontender, non-distended, obese Extremities: no LE edema Neuro: no focal neuro deficits, a+ox4 Psych: appropriate mood and behavior Assessment/Plan Asa Thompson is a 54 y.o. female with CAD (moderate RCA disease 2009), LV thrombus noted on TTE 2023 (was discharged on DOAC, but no fabiano history), T2DM (last A1c 10.2%) on insulin c/b neuropathy, R cerebellar stroke 2023, Carotid artery stenosis, CKD3b, atrophic kidney s/p nephrectomy 2021, HLD,HTN, Hypothyroidism, obesity who presented on 08/25 to [facility] for 3 daysof YE, found to have NSTEMI, s/p JOSELITO to RCA on 08/26 c/b distal RCA lesion dissection, stent embolization, and spiral dissection, STEMI type 4 A. IABP was placed and patient was transferred to [facility] 08/[address] surgery evaluation (no CABG given isolated RCA lesion) with nephrology following for oliguric OMAR. IABP removed 08/28, weaned off nitroprusside gtt since 08/27. Arrived to [facility] on 08/29 evening, of note had a fall upon arrival without sustained injuries. 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 Also found to have significant Carotid Artery stenosis as discussed below. Plavix loaded. Discharged on ASA/Plavixfor stroke and Apixiban 5 BID for LV thrombus (although, no fill history) - Last Neuro stroke note while inpatient recommended either ASA + Eliquis or ASA + Clopidogrel, nottriple therapy - cont Statin Concerns for Mobitz Type II AV Block - seen on 08/28 & 08/29 ECG's, asymptomatic- - HOLDING metop tart 25mg BID - currently SR 1st degree AVB, HR 90's on telemetry - cont telemetry monitoring, keep K>4 and Mag >2 STEMI s/p RCA JOSELITO c/b distal RCA lesion dissection, stent embolization, and spiral dissection (at OSH 08/26) - 07/2024 TTE: EF 68%, possible small mural thrombus - 08/26 LHC: OSH RCA JOSELITO c/b distal RCA lesion dissection, stent embolization, and spiral dissection. Able to get a balloon in the embolized stent, IABP placed, transferred to CICU - 08/28/25 TTE: EF 55-60%, multiple WMA, Unable to determine DF. LA enlarged, normal RV, mild . - reported to have NSTEMI, ECG on arrival to CICU shows STEMI in inferior leads - Cardiac Surgery consulted: given isolated RCA lesion, CABG not recommended - s/p IABP (removed 08/28) - in ICU, switched from plavix to brilinta - 08/31 complained of bilat arm burning , ECG without new ischemic changes - remains chest pain free - STOP ASA to avoid triple therapy - cont Brilinta 90 mg BID, statin 80 mg, BB as above, Suspected LV thrombus - discharged 07/2024 for Apixiban 5 BID for possible LV thrombus. - OP cardiology doubted true LV thrombus, follow up TTE or cMRI never completed - 08/28 TTE: apical filling defect compatible with LV thrombus motion. Severe Mitral annular calcification, moderate aortic valve cusp calcification - ddx calcified amorphous tumor vs thrombus. Smallpericardial effusion. - was on heparin gtt; STOPPED by ICU on 08/29 - DOAC initially contraindicated given kidney function - bridge with heparin gtt to coumadin, restarted 08/31 - goal INR 2-3, INR today=1.2 - pt insistent upon discharge by 09/03, increase Warfarin to 7.5 mg tonight (if Cr not improved) - pending evening renal function will transition to home Eliquis (per pharm, $10/mo w/copay card) - arrange for OP coumadin clinic appt prior to discharge H/o Carotid Artery Stenosis L>R, stable - CT Carotid 07/2024 - 60% Rt internal carotid artery stenosis. 70-80% Lt internal carotid artery stenosis. 50% proximal/ prevertebral Lt subclavian artery stenosis. - Was recommended to follow up with Vascular as outpatient but no documented follow up - 08/29 carotid duplex: bilat <50% stenosis - cont. OP f/up as indicated Oliguric OMAR on CKD3b, improving Atrophic kidney s/p Lt nephrectomy 2021 - baseline Cr ~2, admit Cr 2.06 - Cr today: 2.03 (3.01, 4.39, 6.23, 6.40 peak (08/29) - Renal US 08/27 without renal artery stenosis, no hydronephrosis - FENa suggesting pre-renal cause (hypovolemia) - Nephrology consulted, appreciate recs, signed off (09/02): -- likely multi factorial; Prerenal/low perfusion post STEMI causing ATN, contrast-induced, cholesterol emboli post PCI and/or Cardiorenal. -- limit free H2O intake, reconstitute all IV in normal saline -- no indication for HD -- Follow-up with nephrology on the outpatient settings -- Renally dose meds, avoid nephrotoxins HTN Emergency, resolved HLD - BP on presentation to [facility] 237/102 - s/p Nitroglycerin and nipride drips in CICU, weaned 08/27 - SBP past 24hrs: 120-160's - 1 year ago, VAN=291, repeat pending - cont Amlodipine 10mg, Statin 80mg Hyponatremia, resolved Hyperkalemia, resolved - no neuro deficits, cont. To trend & monitor for now - s/p Lokelma for total 6 doses - K today=4.1, Na today: 133 Normocytic Anemia, stable - likely AOCD and acute blood loss following procedures - b12, folate, iron, TIBC, ferritin wnl - daily hgb stable ~9 - no overt signs of bleeding Leukocytosis of unclear origin, resolved UTI - possibly reactive vs UTI - WBC now normalized (peak 14.2 on (08/30), 11.4 on admit) - CXR (08/28) no acute cardiopulmonary process - UA (08/30) +leukos (negative nitrites) - UC +E coli, Bactrim 1 tab DS for 3 days - afebrile, non-toxic, denies dysuria T2DM c/b neuropathy - (08/2025) hgb A1c 10.2% - takes pioglitazone and 70 units of NPH Regular 70-30 mix at home - cont HOLDING home pioglitazone & gabapentin iso OAMR - cont Lantus 30u every AM, Lispro SSI scale #1 - ACHS accuchecks, hypoglycemia protocol Assisted Fall - (08/29) patient slipped out of bed/landed on her knees while self-adjusting - staff assisted, patient denies injuries - bed/chair exit alarms, falls precautions - cont PT/OT Hypothyroidism - cont home levothyroxine 125mcg Vitamin D deficiency - cont home repletion Agitation, resolved - Alert, oriented x3 - Serial neuro and pain assessments - PO Tylenol PRN for pain - PT/OT Consult, OOB to chair - Sleep/wake cycle normalization DVT ppx: heparin gtt/coumadin bridge DISPO: PT/OT prev. Rec'd low-intensity care - discharge pending improvement in OMAR, therapeutic INR vs DOAC All labs, vital signs, tests & imaging results, and medications were reviewed. Patient seen and discussed with Dr. Jenna Brar Code Status: Full Code NOK: Arian Thompson, son: [phone] JOANN Alvarez Cardiovascular Medicine [1] Scheduled medications Medication Dose Route Frequency amLODIPine 10 mg oral Daily [Held by provider] aspirin 81 mg oral Daily atorvastatin 80 mg oral Nightly cholecalciferol 50 mcg oral Daily ezetimibe 10 mg oral Nightly [Held by provider] gabapentin 600 mg oral BID insulin glargine 30 Units subcutaneous q AM insulin lispro 0-5 Units subcutaneous TID AC levothyroxine 125 mcg oral Daily melatonin 3 mg oral Daily [Held by provider] metoprolol tartrate 25 mg oral BID perflutren lipid microspheres 0.5-10 mL of dilution intravenous Once in imaging [Held by provider] pioglitazone 15 mg oral Daily sulfamethoxazole-trimethoprim 1 tablet oral q12h FARZAD ticagrelor 90 mg oral BID [Held by provider] warfarin 5 mg oral Daily [2] PRN medications Medication acetaminophen dextrose dextrose glucagon glucagon heparin ondansetron Or ondansetron oxyCODONE [3] Continuous Medications Medication Dose Last Rate heparin (porcine) 12 Units/kg/hr 13.675 Units/kg/hr (09/02/25 0324) Cosigned by Jenna Brar MD at 09/02/2025 6:21 PM EDT Associated attestation - Jenna Brar MD - 09/02/2025 6:21 PM EDT This is a shared visit. I have reviewed the Advanced Practice Provider's encounter note, approve the Advanced Practice Provider's documentation, and provide the following additional information from my personal encounter. * Jenna Brra MD - 09/02/2025 2:28 PM EDT [facility] Shared Cardiology Progress Note Ms Thompson is a 54 yo woman from [facility] admitted with type 4A STEMI after complicated RCA PCI dueto dissection at OSH requiring IABP (removed 08/28). She has a history of CAD (prior RCA disease 2009), ?LV thrombus 2023, CKD3b s/p nephrectomy 2021, T2DM, HTN, HLD, hypothyroidism, and R cerebellarstroke 2023. Developed WRF with Cr peak 6.4, now 3.01. IABP removed 08/28, chest-pain free. Bridging heparin to coumadin for LV thrombus, DAPT (ticagrelor only, ASA held), on high-intensity statin and amlodipine, BB held for AV (doesn't appear to be high-grade) block. Nephrology following for OMAR, no indication for HD, which is resolving. Patient threatened to leave AMA this 09/01 AM but changed her mind and was agreeable to staying for a few additional days. Her creatinine continues to improvesignificantly and thus, we may be able to use a DOAC for her. Labs and imaging otherwise reviewed and overall stable. Gen: awake and alert HEENT: normocephalic. Trachea midline CV: RRR. Soft systolic murmurs, gallops, rubs Pulm: clear to auscultation bilaterally. No coarse lung sounds Abd: soft, non-distended. Normal active bowel sounds Ext: warm and well-perfused Psych: appropriate affect Neuro: CN II-XII grossly intact Plan -Hep to Warfarin bridge. Will adjust dosing as appropriate -With rapidly improving renal function, we may be able to switch to DOAC prior to discharge. Will fraire-check -Monitor BMP -Appreciate Nephro recs -Continue to monitor on tele Objective Data: Last Recorded Vitals: Vitals: 09/01/25 1920 09/02/25 0052 09/02/25 0725 09/02/25 1110 BP: 141/71 119/61 164/82 152/71 BP Location: Left arm Left arm Patient Position: Lying Lying Pulse: 93 94 95 95 Resp: 16 16 Temp: 36.5 C (97.7 F) 36.5 C (97.7 F) 36.4 C (97.5 F) 36.2 C (97.2 F) TempSrc: Temporal Temporal SpO2: 94% 96% 96% 96% Weight: Height: Last Labs: CBC - 09/02/2025: 7:49 AM 9.9 9.5 442 29.5 CMP - 09/02/2025: 7:49 AM 8.5 7.0 13 --- 0.7 2.7 3.3 13 122 PTT - 09/02/2025: 7:49 AM 1.2 12.9 45 TROPHS Date/Time Value Ref Range Status 08/31/2025 07:24 AM 11,777 0 - 34 ng/L Final 08/27/2025 09:53 PM 75,417 0 - 34 ng/L Final 08/27/2025 06:12 PM 81,323 0 - 34 ng/L Final Comment: Previous result verified on 08/26/2025 2317 on specimen/case [id number] called with component [facility] for procedure Troponin I, High Sensitivity with value 9,126 ng/L. BNP Date/Time Value Ref Range Status 08/26/2025 09:58 PM 104 0 - 99 pg/mL Final HGBA1C Date/Time Value Ref Range Status 08/26/2025 09:58 PM 10.2 See comment % Final Last I/O: I/O last 3 completed shifts: In: 1715.1 (14.7 mL/kg) [P.O.:1000; I.V.:715.1 (6.1 mL/kg)] Out: 1000 (8.6 mL/kg) [Urine:1000 (0.2 mL/kg/hr)] Weight: 116.9 kg Past Cardiology Tests (Last 3 Years): EKG: ECG 12 lead 09/01/2025 Echo: Transthoracic Echo Complete 08/28/2025 Ejection Fractions: EF Date/Time Value Ref Range Status 08/28/2025 09:26 AM 58 % Cath: No results found for this or any previous visit from the past 1095 days. Stress Test: No results found for this or any previous visit from the past 1095 days. Cardiac Imaging: CT angio coronary art with heartflow if score >30% 08/03/2024 Inpatient Medications: Scheduled Medications[1] PRN Medications[2] Continuous Medications[3] Peripheral IV 08/26/25 18 G Anterior;Right;Upper Arm (Active) Site Assessment Clean;Dry;Intact 09/02/25734 Dressing Status Clean;Dry;Occlusive 09/02/25734 Number of days: 7 Peripheral IV 08/26/25 18 G 3.18 cm Left Antecubital (Active) Site Assessment Clean;Dry;Intact 09/02/25734 Dressing Status Clean;Dry;Occlusive 10/28/25 0735 Number of days: 7 Code Status: Full Code Jenna Brar MD [1] Scheduled medications Medication Dose Route Frequency amLODIPine 10 mg oral Daily [Held by provider] aspirin 81 mg oral Daily atorvastatin 80 mg oral Nightly cholecalciferol 50 mcg oral Daily ezetimibe 10 mg oral Nightly [Held by provider] gabapentin 600 mg oral BID insulin glargine 30 Units subcutaneous q AM insulin lispro 0-5 Units subcutaneous TID AC levothyroxine 125 mcg oral Daily melatonin 3 mg oral Daily [Held by provider] metoprolol tartrate 25 mg oral BID perflutren lipid microspheres 0.5-10 mL of dilution intravenous Once in imaging [Held by provider] pioglitazone 15 mg oral Daily sulfamethoxazole-trimethoprim 1 tablet oral q12h FARZAD ticagrelor 90 mg oral BID warfarin 5 mg oral Daily [2] PRN medications Medication acetaminophen dextrose dextrose glucagon glucagon heparin ondansetron Or ondansetron oxyCODONE [3] Continuous Medications Medication Dose Last Rate heparin (porcine) 12 Units/kg/hr 13.675 Units/kg/hr (09/02/25 0324) * Adelina Patton PTA - 09/02/2025 10:13 AM EDT Therapy Communication Note Patient Name: Asa Thompson Department: [place] [address] Room: [address] [place] [address] Today's Date: 09/02/2025 Discipline: Physical Therapy Missed Visit Reason: Missed Visit Reason: Patient refused (declined despite encouragement) Missed Time: Attempt Comment: Cosigned by Humaira Judd PT at 09/02/2025 11:02 AM EDT * Cecile Mcdonald MD - 09/02/2025 8:02 AM EDT Asa Thompson is a 54 y.o. female on day 7 of admission presenting with Coronary artery disease involving platinum coronary artery of platinum heart without angina pectoris. SUBJECTIVE Hemodynamically stable over last 24 hours with good urine output No acute events OBJECTIVE Vitals: 09/01/25 1606 09/01/25 1920 09/02/25 0052 09/02/25 0725 BP: 151/79 141/71 119/61 164/82 BP Location: Left arm Left arm Patient Position: Lying Lying Pulse: 93 93 94 95 Resp: 16 16 Temp: 36.4 C (97.5 F) 36.5 C (97.7 F) 36.5 C (97.7 F) 36.4 C (97.5 F) TempSrc: Temporal Temporal SpO2: 97% 94% 96% 96% Weight: Height: Results from last 7 days Lab Units 09/01/25 0346 WBC AUTO x10*3/uL 11.2 HEMOGLOBIN g/dL 8.8* HEMATOCRIT % 26.5* PLATELETS AUTO x10*3/uL 377 NEUTROS PCT AUTO % 75.7 LYMPHS PCT AUTO % 13.0 MONOS PCT AUTO % 8.8 EOS PCT AUTO % 0.7 Results from last 7 days Lab Units 09/01/25 0346 SODIUM mmol/L 132* POTASSIUM mmol/L 3.3* CHLORIDE mmol/L 97* CO2 mmol/L 22 BUN mg/dL 51* CREATININE mg/dL 3.01* CALCIUM mg/dL 7.8* PROTEIN TOTAL g/dL 5.7* BILIRUBIN TOTAL mg/dL 0.7 ALK PHOS U/L 123* ALT U/L 14 AST U/L 15 GLUCOSE mg/dL 241* Scheduled Medications Scheduled Medications[1] Physical Exam Constitutional: A&Ox3, no acute distress, alert and cooperative. Eyes: EOMI, clear sclera Respiratory/Thorax: Air entry was appreciated bilateral with no added sounds. Cardiovascular: Regular rate, regular rhythm Diastolic murmur was appreciated on the left upper sternal border, JVP not raised. Gastrointestinal: Nondistended, soft, non-tender Extremities: No lower limb pitting edema Skin: Warm and dry Images US doppler kidney 1. Mildly elevated resistive indices suggestive of increased resistance to blood flow in the kidney. 2. No evidence of renal artery stenosis. 3. Aorta, IVC, renal vein normal flow velocities. 4. Increased renal cortical echogenicity which may be seen with medical renal disease. 5. Postsurgical changes from left nephrectomy. Echo 10/23/25 1. Left ventricular ejection fraction is normal [...] prior echo was a limited fellow study. ASSESSMENT & PLAN 54 years old male with multiple comorbidities including left nephrectomy and CKD stage 3b. Admittedto the Cardiac ICU due to complicated recent PCI for new onest STEMI causing distal RCA lesion dissection, stent embolization and spiral dissection. Had a IABP inserted and transferred to our hospital for CT evaluation. Nephrology team was consulted for further evaluation of new onset OMAR on top ofCKD. # Oliguric OMAR on top of CKD stage IIIb (improved) # Right solitary kidney # History of previous left nephrectomy # Moderate asymptomatic hyponatremia (Improving) - The patient creatinine baseline is around 2, on 08/28 it doubled to 5. - The patient acute change in renal function during her hospital stay have multiple possibilities: Prerenal/low perfusion post STEMI causing ATN, contrast- induced, cholesterol emboli post PCI and/or Cardiorenal. -Currently OMAR improved with good urine output. Recommendations - Avoid nephrotoxic medications and contrast - Follow-up with nephrology on the outpatient settings - Adjust medication on the current GFR which is around 18 - Outpatient follow-up with nephrology - Sign off from nephrology standpoint point. Cecile Mcdonald MD PGY-2, Internal Medicine Please SecureChat for any further questions This is a preliminary note, please await attending attestation for final A/P [1] amLODIPine, 10 mg, oral, Daily [Held by provider] aspirin, 81 mg, oral, Daily atorvastatin, 80 mg, oral, Nightly cholecalciferol, 50 mcg, oral, Daily ezetimibe, 10 mg, oral, Nightly [Held by provider] gabapentin, 600 mg, oral, BID insulin glargine, 30 Units, subcutaneous, q AM insulin lispro, 0-5 Units, subcutaneous, TID AC levothyroxine, 125 mcg, oral, Daily melatonin, 3 mg, oral, Daily [Held by provider] metoprolol tartrate, 25 mg, oral, BID perflutren lipid microspheres, 0.5-10 mL of dilution, intravenous, Once in imaging [Held by provider] pioglitazone, 15 mg, oral, Daily sulfamethoxazole-trimethoprim, 1 tablet, oral, q12h FARZAD ticagrelor, 90 mg, oral, BID warfarin, 5 mg, oral, Daily Cosigned by Ramez Tong MD at 09/02/2025 5:29 PM EDT * Sylvie Schulz, [employer] ANALYST-COMMODITIES REQUIREMENTS ANALYST - 09/01/2025 4:51 PM EDT Subjective Data: Patient seen and assessed this morning, lying in bed, NAD. Ambulating in room with assistance. Denies any CP or SOB. Patient initially insistent upon leaving today, even threatening to leave AMA. Butafter further discussion, pt agreeable to stay until Monday to get INR as high as possible priorto discharge. Requested dietary restrictions to be removed, agreed. Updated on plan of care. Overnight Events: No acute events overnight Today's Plan/Updates: - Na, Cr cont to improve - patient insistent upon discharge by 09/03, INR today 1.1, increase Warfarin to 5 mg tonight - UC +E coli, start Bactrim 1 tab DS for 3 days Overnight Events: No acute events overnight. Objective Data: Last Recorded Vitals: Vitals: 09/01/25 0340 09/01/25 0728 09/01/25 1204 09/01/25 1606 BP: 133/65 176/83 127/70 151/79 BP Location: Left arm Patient Position: Lying Pulse: 92 95 96 93 Resp: 18 16 14 16 Temp: 36.3 C (97.3 F) 36 C (96.8 F) 36.5 C (97.7 F) 36.4 C (97.5 F) TempSrc: Temporal SpO2: 95% 93% 95% 97% Weight: Height: Last Labs: Results for orders placed or performed during the hospital encounter of 08/26/25 (from the past 24 hours) POCT GLUCOSE Result Value Ref Range POCT Glucose 315 (H) 74 - 99 mg/dL Heparin Assay Result Value Ref Range Heparin Unfractionated 0.2 See Comment Below for Therapeutic Ranges IU/mL CBC and Auto Differential Result Value Ref Range WBC 11.2 4.4 - 11.3 x10*3/uL nRBC 0.0 0.0 - 0.0 /100 WBCs RBC 3.15 (L) 4.00 - 5.20 x10*6/uL Hemoglobin 8.8 (L) 12.0 - 16.0 g/dL Hematocrit 26.5 (L) 36.0 - 46.0 % MCV 84 80 - 100 fL MCH 27.9 26.0 - 34.0 pg MCHC 33.2 32.0 - 36.0 g/dL RDW 12.6 11.5 - 14.5 % Platelets 377 150 - 450 x10*3/uL Neutrophils % 75.7 40.0 - 80.0 % Immature Granulocytes %, Automated 1.6 (H) 0.0 - 0.9 % Lymphocytes % 13.0 13.0 - 44.0 % Monocytes % 8.8 2.0 - 10.0 % Eosinophils % 0.7 0.0 - 6.0 % Basophils % 0.2 0.0 - 2.0 % Neutrophils Absolute 8.47 (H) 1.20 - 7.70 x10*3/uL Immature Granulocytes Absolute, Automated 0.18 0.00 - 0.70 x10*3/uL Lymphocytes Absolute 1.46 1.20 - 4.80 x10*3/uL Monocytes Absolute 0.99 0.10 - 1.00 x10*3/uL Eosinophils Absolute 0.08 0.00 - 0.70 x10*3/uL Basophils Absolute 0.02 0.00 - 0.10 x10*3/uL Hepatic Function Panel Result Value Ref Range Albumin 3.0 (L) 3.4 - 5.0 g/dL Bilirubin, Total 0.7 0.0 - 1.2 mg/dL Bilirubin, Direct 0.1 0.0 - 0.3 mg/dL Alkaline Phosphatase 123 (H) 33 - 110 U/L ALT 14 7 - 45 U/L AST 15 9 - 39 U/L Total Protein 5.7 (L) 6.4 - 8.2 g/dL Magnesium Result Value Ref Range Magnesium 2.46 (H) 1.60 - 2.40 mg/dL Coagulation Screen Result Value Ref Range Protime 11.6 9.8 - 12.4 seconds INR 1.1 0.9 - 1.1 aPTT 49 (H) 26 - 36 seconds Phosphorus Result Value Ref Range Phosphorus 3.5 2.5 - 4.9 mg/dL Basic Metabolic Panel Result Value Ref Range Glucose 241 (H) 74 - 99 mg/dL Sodium 132 (L) 136 - 145 mmol/L Potassium 3.3 (L) 3.5 - 5.3 mmol/L Chloride 97 (L) 98 - 107 mmol/L Bicarbonate 22 21 - 32 mmol/L Anion Gap 16 10 - 20 mmol/L Urea Nitrogen 51 (H) 6 - 23 mg/dL Creatinine 3.01 (H) 0.50 - 1.05 mg/dL eGFR 18 (L) >60 mL/min/1.73m*2 Calcium 7.8 (L) 8.6 - 10.6 mg/dL Heparin Assay Result Value Ref Range Heparin Unfractionated 0.4 See Comment Below for Therapeutic Ranges IU/mL Morphology Result Value Ref Range RBC Morphology No significant RBC morphology present ECG 12 lead Result Value Ref Range Ventricular Rate 93 BPM Atrial Rate 93 BPM MS Interval 214 ms QRS Duration 100 ms QT Interval 348 ms QTC Calculation(Bazett) 432 ms P [place] 13 degrees R [place] 57 degrees T [place] 129 degrees QRS Count 15 beats Q Onset 206 ms P Onset 99 ms P Offset 153 ms T Offset 380 ms QTC Fredericia 403 ms Heparin Assay Result Value Ref Range Heparin Unfractionated 0.3 See Comment Below for Therapeutic Ranges IU/mL POCT GLUCOSE Result Value Ref Range POCT Glucose 273 (H) 74 - 99 mg/dL Lavender Top Result Value Ref Range Extra Tube Hold for add-ons. PST Top Result Value Ref Range Extra Tube Hold for add-ons. POCT GLUCOSE Result Value Ref Range POCT Glucose 252 (H) 74 - 99 mg/dL POCT GLUCOSE Result Value Ref Range POCT Glucose 189 (H) 74 - 99 mg/dL TROPHS Date/Time Value Ref Range Status 08/31/2025 07:24 AM 11,777 0 - 34 ng/L Final 08/27/2025 09:53 PM 75,417 0 - 34 ng/L Final 08/27/2025 06:12 PM 81,323 0 - 34 ng/L Final Comment: Previous result verified on 08/26/2025 2317 on specimen/case [id number] called with component [facility] for procedure Troponin I, High Sensitivity with value 9,126 ng/L. BNP Date/Time Value Ref Range Status 08/26/2025 09:58 PM 104 0 - 99 pg/mL Final HGBA1C Date/Time Value Ref Range Status 08/26/2025 09:58 PM 10.2 See comment % Final Last I/O: I/O last 3 completed shifts: In: - (0 mL/kg) Out: 1000 (8.6 mL/kg) [Urine:1000 (0.2 mL/kg/hr)] Weight: 116.9 kg Past Cardiology Tests (Last 3 Years): EKG: Electrocardiogram, 12-lead PRN ACS symptoms 08/30/2025 (Preliminary) Age and gender specific ECG analysis Sinus rhythm with marked sinus arrhythmia with 1st degree AV block 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) Inferior injury pattern ACUTE [place] Abnormal ECG When compared with ECG of 29-AUG-2025 06:20, QRS duration has increased QT has lengthened Confirmed by Elia Connell ([id number]) on 08/30/2025 7:50:04 PM Echo: Transthoracic Echo Complete 08/28/2025: 1. Left ventricular ejection fraction is normal [...] prior echo was a limited fellow study. Transthoracic Echo (TTE) Limited 08/26/2025: 1. The left ventricle was not well visualized. The left ventricular ejection fraction could not be measured. 2. There is moderate aortic valve cusp calcification. 3. There is moderate mitral annular calcification. Ejection Fractions: EF Date/Time Value Ref Range Status 08/28/2025 09:26 AM 58 % Cath: No results found for this or any previous visit from the past 1095 days. Stress Test: No results found for this or any previous visit from the past 1095 days. Cardiac Imaging: CT angio coronary art with heartflow if score >30% 08/03/2024 1. There is 60% right internal carotid artery stenosis. 2. There is 70-80% left internal carotid artery stenosis. 3. There is 50% proximal/prevertebral left subclavian artery stenosis. 4. Moderate stenosis of the left vertebral artery due to extrinsic compression from osteophytes at the C4-C5 level. Inpatient Medications: Scheduled Medications[1] PRN Medications[2] Continuous Medications[3] Physical Exam: General: NAD, lying in bed Skin: warm and dry throughout, R groin site mild ecchymosis, dressing C/D/I without hematoma/oozing/tenderness Head/ neck: no JVD Cardiac: irregular rate and rhythm, AV block on tele HR 60s Pulm: CTAB, room air GI: soft, nontender, non-distended, obese Extremities: no LE edema Neuro: no focal neuro deficits, a+ox4 Psych: appropriate mood and behavior Assessment/Plan Asa Thompson is a 54 y.o. female with CAD (moderate RCA disease 2009), ?LV thrombus noted on [id number] (was discharged on DOAC, but no fabiano history), T2DM (last A1c 10.2%) on insulin c/b neuropathy,R cerebellar stroke 2023, Carotid artery stenosis, CKD3b, atrophic kidney s/p nephrectomy 2021, HLD, HTN, Hypothyroidism, obesity who presented on 08/25 to [facility] for 3 days of YE, found to have NSTEMI, s/p JOSELITO to RCA on 08/26 c/b distal RCA lesion dissection, stent embolization, and spiral dissection, STEMI type 4 A. IABP was placed and patient was transferred to [facility] 08/[address] surgery evaluation (no CABG given isolated RCA lesion) with nephrology following foroliguric OMAR. IABP removed 08/28, weaned off nitroprusside gtt since 08/27. Arrived to [facility] Service 08/29 evening, of note had a fall upon arrival without sustained injuries. H/o Paramedian R Cerebellar Hemisphere Stroke H/o Multiple Lacunar infarcts in basal ganglia - Found on MRI 2023 after presenting for severe headache and double vision of L eye. Also found to have significant Carotid Artery stenosis as discussed below. Plavix loaded. Discharged on ASA/Plavixfor stroke and Apixiban 5 BID for ?LV thrombus (although, no fill history) - Last Neuro stroke note while inpatient recommended either ASA + Eliquis or ASA + Clopidogrel, nottriple therapy - cont. Statin Concerns for Mobitz Type II AV Block - EKG today, HR 40-60s; asymptomatic - HOLD metop tart 25mg BID STEMI s/p RCA JOSELITO c/b distal RCA lesion dissection, stent embolization, and spiral dissection (at OSH 08/26) - normal EF on TTE from 2023 and on repeat TTE this admit - Initially reported to have NSTEMI, but ECG on arrival to CICU shows STEMI in inferior leads - RCA JOSELITO c/b distal RCA lesion dissection, stent embolization, and spiral dissection - s/p CTS consult (08/27): given isolated RCA lesion, CABG not recommended - s/p nitroprusside gtt (weaned 08/27) - s/p IABP (removed 08/28) - in ICU, switched from plavix to brilinta (unclear reasons) - repeat EKG 08/31 iso bilat arm burning , results as above without new ischemic changes - remains free of chest pain - plans w/BB as above, cont. Brilinta 90mg BID, statin 80mg - HOLD ASA to avoid triple therapy - cont brilinta/coumadin upon discharge Suspected LV thrombus - discharged 07/2024 for Apixiban 5 BID for ?LV thrombus. Outpatient cardiology doubted true LV thrombus but follow up TTE or cMRI never completed - TTE 08/27 - EF 55-60%, inferior septum abnormal wall motion. Suggestion of LV thrombus, decreasedLV cavity. Severe Mitral annular calcification, moderate aortic valve cusp calcification - ddx calcified amorphous tumor or thrombus. Small pericardial effusion. Small pericardial effusion , was on heparin gtt; STOPPED by ICU on 08/29 - no DOACs given worsening kidney function - bridge with heparin gtt to coumadin, started 08/30 - goal INR 2-3, INR today=1.1 - pt insistent upon discharge by 09/03, increase Warfarin to 5 mg tonight - arrange for OP coumadin clinic appt prior to discharge H/o Carotid Artery Stenosis L>R, stable - CT Carotid 07/2024 - There is 60% right internal carotid artery stenosis. 2. There is 70-80% left internal carotid artery stenosis. 3. There is 50% proximal/prevertebral left subclavian artery stenosis. - Was recommended to follow up with Vascular as outpatient but no documented follow up - carotid duplex (08/29): bilat <50% stenosis - cont. OP f/up as indicated Oliguric OMAR on CKD3b, worsening Atrophic kidney s/p nephrectomy 2021 - suspect related to hemodynamic insult - unclear baseline Cr - Cr today: 6.23 (6.40 peak, 5.37, 2.06 on admit) - Renal US 08/27 without renal artery stenosis, no hydronephrosis - FENa suggesting pre-renal cause (hypovolemia) - Nephrology consulted, signed off (09/01): limit free H2O intake, reconstitute all IV in normal saline, no indication for HD - Follow-up with nephrology on the outpatient settings - Renally dose meds, avoid nephrotoxins HTN Emergency, resolved HLD - BP on presentation to [facility] 237/102 - SBP past 24hrs: 127-136 - 1 year ago, ZEJ=520 - cont Amlodipine 10mg - cont. Statin 80mg Hyponatremia, improving Hyperkalemia, treated - no neuro deficits, cont. To trend & monitor for now - s/p Lokelma for total 6 doses - K today=3.3, Na today: 132 Normocytic Anemia, stable - likely AOCD and acute blood loss following procedures - b12, folate, iron, TIBC, ferritin wnl - daily hgb stable ~9 - no overt signs of bleeding Leukocytosis of unclear origin Suspicious Urinalysis - WBC today: 14.2 (13.5, 11.4 on admit) - CXR (08/28) no acute cardiopulmonary process - UA (08/30) +leukos (negative nitrites) - UC +E coli, start Bactrim 1 tab DS for 3 days - afebrile, non-toxic, denies dysuria - given lack of s/sx, defer antbx at this time T2DM c/b neuropathy - (08/2025) hgb A1c 10.2% - takes pioglitazone and 70 units of NPH Regular 70-30 mix at home - cont HOLDING home pioglitazone & gabapentin iso OMAR - cont. Lantus 30u every AM, Lispro SSI scale #1 - ACHS accuchecks, hypoglycemia protocol Fall - (08/29) patient slipped out of bed/landed on her knees while self-adjusting - staff assisted, patient denies injuries - bed/chair exit alarms, falls precautions - cont PT/OT Hypothyroidism - cont home levothyroxine 125mcg Vitamin D deficiency - cont home repletion Agitation, resolved - Alert, oriented x3 - Serial neuro and pain assessments - PO Tylenol PRN for pain - PT/OT Consult, OOB to chair - Sleep/wake cycle normalization DVT ppx: heparin gtt/coumadin bridge DISPO: PT/OT prev. Rec'd low-intensity care - discharge mid-next week, pending improvement in OMAR and therapeutic INR All labs, vital signs, tests & imaging results, and medications were reviewed. Patient seen and discussed with Dr. Jenna Brar Code Status: Full Code NOK: Arian Thompson, son: [phone] Sylvie Schulz APRN-KIM Cardiovascular Medicine [1] Scheduled medications Medication Dose Route Frequency amLODIPine 10 mg oral Daily [Held by provider] aspirin 81 mg oral Daily atorvastatin 80 mg oral Nightly cholecalciferol 50 mcg oral Daily ezetimibe 10 mg oral Nightly [Held by provider] gabapentin 600 mg oral BID insulin glargine 30 Units subcutaneous q AM insulin lispro 0-5 Units subcutaneous TID AC levothyroxine 125 mcg oral Daily melatonin 3 mg oral Daily [Held by provider] metoprolol tartrate 25 mg oral BID perflutren lipid microspheres 0.5-10 mL of dilution intravenous Once in imaging [Held by provider] pioglitazone 15 mg oral Daily potassium chloride CR 40 mEq oral Once ticagrelor 90 mg oral BID warfarin 5 mg oral Daily [2] PRN medications Medication acetaminophen dextrose dextrose glucagon glucagon heparin ondansetron Or ondansetron oxyCODONE [3] Continuous Medications Medication Dose Last Rate heparin (porcine) 12 Units/kg/hr 1,600 Units/hr (09/01/25 0850) Cosigned by Jenna Brar MD at 09/01/2025 9:52 PM EDT Associated attestation - Jenna Brar MD - 09/01/2025 9:52 PM EDT This is a shared visit. I have reviewed the Advanced Practice Provider's encounter note, approve the Advanced Practice Provider's documentation, and provide the following additional information from my personal encounter. Ms Thompson is a 54 yo woman from [facility] admitted with type 4A STEMI after complicated RCA PCI dueto dissection at OSH requiring IABP (removed 08/28). She has a history of CAD (prior RCA disease 2009), ?LV thrombus 2023, CKD3b s/p nephrectomy 2021, T2DM, HTN, HLD, hypothyroidism, and R cerebellarstroke 2023. Developed WRF with Cr peak 6.4, now 3.01. IABP removed 08/28, chest-pain free. Bridging heparin to coumadin for LV thrombus, DAPT (ticagrelor only, ASA held), on high-intensity statin and amlodipine, BB held for AV (doesn't appear to be high-grade) block. Nephrology following for OMAR, no indication for HD. Pending renal function. Patient threatened to leave AMA this morning but changed her mind and was agreeable to staying for a few additional days. Gen: awake and alert HEENT: normocephalic. Trachea midline CV: RRR. Soft systolic murmurs, gallops, rubs Pulm: clear to auscultation bilaterally. No coarse lung sounds Abd: soft, non-distended. Normal active bowel sounds Ext: warm and well-perfused Psych: appropriate affect Neuro: CN II-XII grossly intact Plan -Hep to Warfarin bridge. Increase Warfarin dose -Monitor BMP -Continue to monitor on tele * Geno Thomas RN - 09/01/2025 12:36 PM EDT 09/01/25 1236 Rapid Rounds Attendance Nurse;Care Transitions Expected Discharge Disposition Home Today we still await: Clinical stability Review at Escalation Rounds Clinically complex Team aware the pt is out of network with . Transferred from, [facility]. * Cecile Mcdonald MD - 09/01/2025 11:57 AM EDT Asa Thompson is a 54 y.o. female on day 6 of admission presenting with Coronary artery disease involving platinum coronary artery of platinum heart without angina pectoris. SUBJECTIVE Hemodynamically stable over last 24 hours with good urine output No acute events OBJECTIVE Vitals: 08/31/25 1919 08/31/25 2322 10/33909/01/25 0728 BP: 136/69 131/70 133/65 176/83 BP Location: Patient Position: Pulse: 95 100 92 95 Resp: 18 19 18 16 Temp: 36.3 C (97.3 F) 36.5 C (97.7 F) 36.3 C (97.3 F) 36 C (96.8 F) TempSrc: SpO2: 96% 93% 95% 93% Weight: Height: Output around 750 Results from last 7 days Lab Units 09/01/25 0346 WBC AUTO x10*3/uL 11.2 HEMOGLOBIN g/dL 8.8* HEMATOCRIT % 26.5* PLATELETS AUTO x10*3/uL 377 NEUTROS PCT AUTO % 75.7 LYMPHS PCT AUTO % 13.0 MONOS PCT AUTO % 8.8 EOS PCT AUTO % 0.7 Results from last 7 days Lab Units 09/01/25 0346 SODIUM mmol/L 132* POTASSIUM mmol/L 3.3* CHLORIDE mmol/L 97* CO2 mmol/L 22 BUN mg/dL 51* CREATININE mg/dL 3.01* CALCIUM mg/dL 7.8* PROTEIN TOTAL g/dL 5.7* BILIRUBIN TOTAL mg/dL 0.7 ALK PHOS U/L 123* ALT U/L 14 AST U/L 15 GLUCOSE mg/dL 241* Scheduled Medications Scheduled Medications[1] Physical Exam Constitutional: A&Ox3, no acute distress, alert and cooperative. Eyes: EOMI, clear sclera Respiratory/Thorax: Air entry was appreciated bilateral with no added sounds. Cardiovascular: Regular rate, regular rhythm Diastolic murmur was appreciated on the left upper sternal border, JVP not raised. Gastrointestinal: Nondistended, soft, non-tender Extremities: No lower limb pitting edema Skin: Warm and dry Images US doppler kidney 1. Mildly elevated resistive indices suggestive of increased resistance to blood flow in the kidney. 2. No evidence of renal artery stenosis. 3. Aorta, IVC, renal vein normal flow velocities. 4. Increased renal cortical echogenicity which may be seen with medical renal disease. 5. Postsurgical changes from left nephrectomy. Echo 08/28/25 1. Left ventricular ejection fraction is normal [...] prior echo was a limited fellow study. ASSESSMENT & PLAN 54 years old male with multiple comorbidities including left nephrectomy and CKD stage 3b. Admittedto the Cardiac ICU due to complicated recent PCI for new onest STEMI causing distal RCA lesion dissection, stent embolization and spiral dissection. Had a IABP inserted and transferred to our hospital for CT evaluation. Nephrology team was consulted for further evaluation of new onset OMAR on top ofCKD. # Oliguric OMAR on top of CKD stage IIIb (improved) # Right solitary kidney # History of previous left nephrectomy # Moderate asymptomatic hyponatremia (Improving) - The patient creatinine baseline is around 2, on 08/28 it doubled to 5. - The patient acute change in renal function during her hospital stay have multiple possibilities: Prerenal/low perfusion post STEMI causing ATN, contrast- induced, cholesterol emboli post PCI and/or Cardiorenal. -Currently OMAR improved with good urine output. Recommendations - Avoid nephrotoxic medications and contrast - Follow-up with nephrology on the outpatient settings - Adjust medication on the current GFR which is around 18 - Outpatient follow-up with nephrology - Sign off from nephrology standpoint point. Cecile Mcdonald MD PGY-2, Internal Medicine Please SecureChat for any further questions This is a preliminary note, please await attending attestation for final A/P [1] amLODIPine, 10 mg, oral, Daily [Held by provider] aspirin, 81 mg, oral, Daily atorvastatin, 80 mg, oral, Nightly cholecalciferol, 50 mcg, oral, Daily ezetimibe, 10 mg, oral, Nightly [Held by provider] gabapentin, 600 mg, oral, BID insulin glargine, 30 Units, subcutaneous, q AM insulin lispro, 0-5 Units, subcutaneous, TID AC levothyroxine, 125 mcg, oral, Daily melatonin, 3 mg, oral, Daily [Held by provider] metoprolol tartrate, 25 mg, oral, BID perflutren lipid microspheres, 0.5-10 mL of dilution, intravenous, Once in imaging [Held by provider] pioglitazone, 15 mg, oral, Daily ticagrelor, 90 mg, oral, BID warfarin, 3 mg, oral, Daily Cosigned by Ramez Tong MD at 09/01/2025 6:50 PM EDT Associated attestation - Ramez Tong MD - 09/01/2025 6:50 PM EDT I saw and evaluated the patient. I personally obtained the trevizo and critical portions of the historyand physical exam or was physically present for trevizo and critical portions performed by the resident/fellow. I reviewed the resident/fellow's documentation and discussed the patient with the resident/f sindhu. I agree with the resident/fellow's medical decision making as documented in the note. * Madalyn Greene APRN-KIM - 08/31/2025 4:35 PM EDT Subjective Data: On exam this morning lying in bed alert and in no distress- denied chest pain and or SOB at tie of exam. 08/31 Updates: - Hyponatremia slight improvement with am labs, per renal recs [hyponatremia and acute on chronic kidney disease] change anything iv from dextrose to NS if possible- changed heparin infusion with pharmacy's assistance to NS and added 1Liter fluid restriction - yesterday 08/30 first dose of warfarin 3mg, INR 1.0 this am will continue with same dosing warfarin - HOLD ASA to avoid triple therapy (pending int. Cards input) - HOLD BB iso new AV block on EKG, ?consider EP if symptomatic - Leukocytosis stable, urine cx pending - repleted 20 mEq KCL for serum potassium 3.3 on am labs (renally dosed) - health program manager consult for coumadin diet recs as well as CAD, CKD, and DM - repeat Troponin this am shows down trending at 11,777 (was 75,417 on 08/27) Overnight Events: No acute events overnight. Objective Data: Last Recorded Vitals: Vitals: 08/31/25 0354 08/31/25 0734 08/31/25 1145 08/31/25 1557 BP: 126/67 133/71 127/65 131/66 BP Location: Left arm Patient Position: Lying Pulse: 96 94 93 91 Resp: 18 16 18 18 Temp: 36.3 C (97.3 F) 36.5 C (97.7 F) 36.7 C (98.1 F) 36.4 C (97.5 F) TempSrc: Temporal SpO2: 93% 95% 96% 96% Weight: Height: Last Labs: CBC - 08/31/2025: 7:24 AM 13.1 9.0 345 26.8 CMP - 08/31/2025: 7:24 AM 7.9 6.6 17 --- 0.6 5.7 3.3 15 121 PTT - 08/31/2025: 7:24 AM 1.0 11.5 32 TROPHS Date/Time Value Ref Range Status 08/31/2025 07:24 AM 11,777 0 - 34 ng/L Final 08/27/2025 09:53 PM 75,417 0 - 34 ng/L Final 08/27/2025 06:12 PM 81,323 0 - 34 ng/L Final Comment: Previous result verified on 08/26/2025 2317 on specimen/case [id number] called with component [facility] for procedure Troponin I, High Sensitivity with value 9,126 ng/L. BNP Date/Time Value Ref Range Status 08/26/2025 09:58 PM 104 0 - 99 pg/mL Final HGBA1C Date/Time Value Ref Range Status 08/26/2025 09:58 PM 10.2 See comment % Final Last I/O: I/O last 3 completed shifts: In: 940 (8 mL/kg) [P.O.:940] Out: 770 (6.6 mL/kg) [Urine:770 (0.2 mL/kg/hr)] Weight: 116.9 kg Past Cardiology Tests (Last 3 Years): EKG: Electrocardiogram, 12-lead PRN ACS symptoms 08/30/2025 (Preliminary) Echo: Transthoracic Echo Complete 08/28/2025: 1. Left ventricular ejection fraction is normal [...] prior echo was a limited fellow study. Transthoracic Echo (TTE) Limited 08/26/2025: 1. The left ventricle was not well visualized. The left ventricular ejection fraction could not be measured. 2. There is moderate aortic valve cusp calcification. 3. There is moderate mitral annular calcification. Ejection Fractions: EF Date/Time Value Ref Range Status 08/28/2025 09:26 AM 58 % Cath: No results found for this or any previous visit from the past 1095 days. Stress Test: No results found for this or any previous visit from the past 1095 days. Cardiac Imaging: CT angio coronary art with heartflow if score >30% 08/03/2024 1. There is 60% right internal carotid artery stenosis. 2. There is 70-80% left internal carotid artery stenosis. 3. There is 50% proximal/prevertebral left subclavian artery stenosis. 4. Moderate stenosis of the left vertebral artery due to extrinsic compression from osteophytes at the C4-C5 level. Inpatient Medications: Scheduled Medications[1] PRN Medications[2] Continuous Medications[3] Physical Exam: General: NAD, lying in bed Skin: warm and dry throughout, R groin site mild ecchymosis, dressing C/D/I without hematoma/oozing/tenderness Head/ neck: no JVD Cardiac: irregular rate and rhythm, AV block on tele HR 60s Pulm: CTAB, room air GI: soft, nontender, non-distended, obese Extremities: no LE edema Neuro: no focal neuro deficits, a+ox4 Psych: appropriate mood and behavior Assessment/Plan Asa Thompson is a 54 y.o. female with CAD (moderate RCA disease 2009), ?LV thrombus noted on [id number] (was discharged on DOAC, but no fabiano history), T2DM (last A1c 10.2%) on insulin c/b neuropathy,R cerebellar stroke 2023, Carotid artery stenosis, CKD3b, atrophic kidney s/p nephrectomy 2021, HLD, HTN, Hypothyroidism, obesity who presented on 08/25 to [facility] for 3 days of YE, found to have NSTEMI, s/p JOSELITO to RCA on 08/26 c/b distal RCA lesion dissection, stent embolization, and spiral dissection, STEMI type 4 A. IABP was placed and patient was transferred to [facility] 08/[address] surgery evaluation (no CABG given isolated RCA lesion) with nephrology following foroliguric OMAR. IABP removed 08/28, weaned off nitroprusside gtt since 08/27. Arrived to [facility] 08/29 evening, of note had a fall upon arrival without sustained injuries. H/o Paramedian R Cerebellar Hemisphere Stroke H/o Multiple Lacunar infarcts in basal ganglia - Found on MRI 2023 after presenting for severe headache and double vision of L eye. Also found to have significant Carotid Artery stenosis as discussed below. Plavix loaded. Discharged on ASA/Plavixfor stroke and Apixiban 5 BID for ?LV thrombus (although, no fill history) - Last Neuro stroke note while inpatient recommended either ASA + Eliquis or ASA + Clopidogrel but not triple therapy - cont. Statin Concerns for Mobitz Type II AV Block - EKG today, HR 40-60s; asymptomatic - HOLD metop tart 25mg BID - ?consider EP consult if indicated STEMI s/p RCA JOSELITO c/b distal RCA lesion dissection, stent embolization, and spiral dissection (at OSH 08/26) - normal EF on TTE from 2023 and on repeat TTE this admit - Initially reported to have NSTEMI, but ECG on arrival to CICU shows STEMI in inferior leads :: RCA JOSELITO c/b distal RCA lesion dissection, stent embolization, and spiral dissection - s/p CTS consult (08/27): given isolated RCA lesion, CABG not recommended - s/p nitroprusside gtt (weaned 08/27) - s/p IABP (removed 08/28) - in ICU, switched from plavix to brilinta (unclear reasons) - repeat EKG today iso bilat arm burning , results as above without new ischemic changes - remains free of chest pain - plans w/BB as above, cont. Brilinta 90mg BID, statin 80mg, HOLD ASA to avoid triple therapy -- of note: (08/30) reached out to int. Cards (Dr. Kong) regarding triple therapy; pending response. Given neuro history, likely continuing brilinta/coumadin upon discharge. Suspected LV thrombus - discharged 07/2024 for Apixiban 5 BID for ?LV thrombus. Outpatient cardiology doubted true LV thrombus but follow up TTE or cMRI never completed - TTE 08/27 - EF 55-60%, inferior septum abnormal wall motion. Suggestion of LV thrombus, decreasedLV cavity. Severe Mitral annular calcification, moderate aortic valve cusp calcification - ddx calcified amorphous tumor or thrombus. Small pericardial effusion. Small pericardial effusion , was on heparin gtt; STOPPED by ICU on 08/29 - no DOACs given worsening kidney function - bridge with heparin gtt to coumadin, starting 3mg this evening - goal INR 2-3, INR today=1.1, arrange for OP coumadin clinic appt. Prior to discharge H/o Carotid Artery Stenosis L>R, stable - CT Carotid 07/2024 - There is 60% right internal carotid artery stenosis. 2. There is 70-80% left internal carotid artery stenosis. 3. There is 50% proximal/prevertebral left subclavian artery stenosis. - Was recommended to follow up with Vascular as outpatient but no documented follow up - carotid duplex (08/29): bilat <50% stenosis - cont. OP f/up as indicated Oliguric OMAR on CKD3b, worsening Atrophic kidney s/p nephrectomy 2021 - suspect related to hemodynamic insult - unclear baseline Cr - Cr today: 6.23 (6.40 peak, 5.37, 2.06 on admit) - Renal US 08/27 without renal artery stenosis, no hydronephrosis - FENa suggesting pre-renal cause (hypovolemia) - renal following, appreciate recs (08/30): limit free H2O intake, reconstitute all IV in normal saline, no indication for HD - Renally dose meds, avoid nephrotoxins HTN Emergency, treated HTN HLD - BP on presentation to [facility] 237/102 - SBP past 24hrs: 110-120 - 1 year ago, MGB=900 - cont. Amlodipine 10mg, other BP meds as above - cont. Statin 80mg Hyponatremia, stable Hyperkalemia, treated - Na today: 129 - no neuro deficits, cont. To trend & monitor for now - s/p Lokelma for total 6 doses - K today=3.3 Normocytic Anemia, stable - likely AOCD and acute blood loss following procedures - b12, folate, iron, TIBC, ferritin wnl - daily hgb stable ~9 - no overt signs of bleeding Leukocytosis of unclear origin Suspicious Urinalysis - WBC today: 14.2 (13.5, 11.4 on admit) - CXR (08/28) no acute cardiopulmonary process - UA (08/30) +leukos (negative nitrites), urine cx pending - afebrile, non-toxic, denies dysuria - given lack of s/sx, defer antbx at this time T2DM c/b neuropathy - (08/2025) hgb A1c 10.2% - Takes pioglitazone and 70 units of NPH Regular 70-30 mix at home - cont. HOLDING home pioglitazone (& gabapentin iso OMAR) - cont. Lantus 30u every AM - TATE quintero, SSI#1, hypoglycemia protocol Fall - (08/29) patient slipped out of bed/landed on her knees while self-adjusting - staff assisted, patient denies injuries - bed/chair exit alarms - cont. PT/OT Hypothyroidism - Continue home levothyroxine 125mcg Vitamin D deficiency - Continue home repletion Agitation, resolved - cont. To monitor DVT ppx: heparin gtt/coumadin bridge DISPO: PT/OT prev. Rec'd low-intensity care - discharge mid-next week, pending improvement in OMAR and therapeutic INR All labs, vital signs, tests & imaging results, and medications were reviewed. Seen and discussed with Dr. Lou Code Status: Full Code JOANN Ennis [1] Scheduled medications Medication Dose Route Frequency amLODIPine 10 mg oral Daily [Held by provider] aspirin 81 mg oral Daily atorvastatin 80 mg oral Nightly cholecalciferol 50 mcg oral Daily ezetimibe 10 mg oral Nightly [Held by provider] gabapentin 600 mg oral BID insulin glargine 30 Units subcutaneous q AM insulin lispro 0-5 Units subcutaneous TID AC levothyroxine 125 mcg oral Daily melatonin 3 mg oral Daily [Held by provider] metoprolol tartrate 25 mg oral BID perflutren lipid microspheres 0.5-10 mL of dilution intravenous Once in imaging [Held by provider] pioglitazone 15 mg oral Daily ticagrelor 90 mg oral BID warfarin 3 mg oral Daily [2] PRN medications Medication acetaminophen dextrose dextrose glucagon glucagon heparin ondansetron Or ondansetron oxyCODONE [3] Continuous Medications Medication Dose Last Rate heparin (porcine) 12 Units/kg/hr Cosigned by Jenna Lou MD at 09/01/2025 9:21 AM EDT Associated attestation - Jenna Lou MD - 09/01/2025 9:21 AM EDT This is a shared visit. I have reviewed the Advanced Practice Provider's encounter note, approve the Advanced Practice Provider's documentation, and provide the following additional information from my personal encounter. Please see my progress note from today for additional details. Jenna Lou MD * Jenna Lou MD - 08/31/2025 9:33 AM EDT [facility] Attending Shared Visit Note This is a shared visit. Please see Advanced Practice Provider's encounter note for additional details. Briefly, 54F from [facility] admitted with type 4A STEMI after complicated RCA PCI due to dissection at OSH requiring IABP (removed 08/28). She has a history of CAD (prior RCA disease 2009), ?LV thrombus 2023, CKD3b s/p nephrectomy 2021, T2DM, HTN, HLD, hypothyroidism, and R cerebellar stroke 2023. Developed WRF with Cr peak 6.4(last Cr/GFR: 4.39/11). IABP removed 08/28, chest-pain free. Bridging heparin to coumadin for LV thrombus, DAPT (ticagrelor only, ASA held), on high-intensity statin and amlodipine, BB held for AV block. Nephrology following for OMAR, no indication for HD. Exam: Warm, euvolemic. No chest pain. Dispo: pending renal function Jenna Lou MD Assessment & Plan Coronary artery disease involving platinum coronary artery of platinum heart without angina pectoris Objective Admit Date: 08/26/2025 Hospital Length of Stay: 5 Home: [facility] [id number] MEDICATIONS Infusions: heparin, Last Rate: 1,400 Units/hr (08/31/25 0828) Scheduled: amLODIPine, 10 mg, Daily [Held by provider] aspirin, 81 mg, Daily atorvastatin, 80 mg, Nightly cholecalciferol, 50 mcg, Daily ezetimibe, 10 mg, Nightly [Held by provider] gabapentin, 600 mg, BID insulin glargine, 30 Units, q AM insulin lispro, 0-5 Units, TID AC levothyroxine, 125 mcg, Daily melatonin, 3 mg, Daily [Held by provider] metoprolol tartrate, 25 mg, BID perflutren lipid microspheres, 0.5-10 mL of dilution, Once in imaging [Held by provider] pioglitazone, 15 mg, Daily ticagrelor, 90 mg, BID warfarin, 3 mg, Daily PRN: acetaminophen, 650 mg, q6h PRN dextrose, 12.5 g, q15 min PRN dextrose, 25 g, q15 min PRN glucagon, 1 mg, q15 min PRN glucagon, 1 mg, q15 min PRN heparin, 2,000-4,000 Units, q4h PRN ondansetron, 4 mg, q8h PRN Or ondansetron, 4 mg, q8h PRN oxyCODONE, 5 mg, q6h PRN Prior to Admission Meds: Prescriptions Prior to Admission[1] Vitals: 08/31/2025 7:34 AM 08/31/2025 3:54 AM 08/30/2025 11:27 PM 08/30/2025 8:12 PM 08/30/2025 4:39 PM 08/30/2025 1:56 PM 08/30/2025 11:38 AM Vitals Systolic 133 126 123 153 110 139 132 Diastolic 71 67 58 60 57 73 62 BP Location Left arm Left arm Heart Rate 94 96 89 76 82 80 75 Temp 36.5 C (97.7 F) 36.3 C (97.3 F) 36.2 C (97.2 F) 36 C (96.8 F) 36.3 C (97.3 F) 36.4 C (97.5 F) 36.4 C (97.5 F) Resp 16 18 18 16 18 14 16 Wt Readings from Last 5 Encounters: 08/30/25 117 kg (257 lb 11.5 oz) 08/26/25 116 kg (255 lb 11.7 oz) Intake/Output Summary (Last 24 hours) at 08/31/2025 0933 Last data filed at 08/30/20252011 Gross per 24 hour Intake 720 ml Output 550 ml Net 170 ml CHEST: Unlabored, Clear, Diminished CV: Heart block NEURO: RASS: Alert and calm CAM: Negative LOC: Alert Cognition: Appropriate judgement, Appropriate safety awareness, Appropriate attention/concentration GCS: 15 DATA: CMP: Recent Labs 08/31/25 0724 08/30/25 0707 08/29/25 0327 08/28/25 1202 08/28/25 0410 08/28/25 0119 08/27/2531008/26/25 2158 NA 129* 126* 131* 128* 131* -- 135* 131* K 3.3* 3.7 4.1 4.7 5.9* -- 4.7 5.4* CL 92* 90* 93* 93* 98 -- 100 100 CO2 21 18* 22 21 17* -- 20* 17* ANIONGAP 19 22* 20 19 22* -- 20 19 BUN 69* 68* 62* 51* 49* -- 34* 28* CREATININE 4.39* 6.23* 6.40* 5.37* 5.03* -- 2.51* 2.06* EGFR 11* 8* 7* 9* 10* -- 22* 28* MG 2.50* 2.43* 2.28 2.32 -- 2.37 2.15 2.11 Recent Labs 08/31/25 0708/30/25 0707 08/29/25 0327 08/28/25 1202 08/28/25 0410 08/28/25 01108/27/2531008/26/25 2158 ALBUMIN 3.3* 3.4 3.1* 3.5 3.3* 3.4 3.5 3.8 ALT 15 -- -- 33 25 19 AST 17 29 67* -- -- 161* 102* 40* BILITOT 0.6 0.7 0.7 -- -- 0.5 0.4 0.5 CBC: Recent Labs 08/31/2572308/30/25 0707 08/29/25 0327 08/28/25 0119 08/27/2531008/26/25 2158 WBC 13.1* 14.2* 13.5* 13.3* 11.3 11.4* HGB 9.0* 9.9* 9.2* 9.6* 10.4* 11.1* HCT 26.8* 30.3* 27.2* 29.0* 29.6* 33.3* PLT 345 249 238 258 303 353 MCV 84 87 82 84 81 84 COAG: Recent Labs 08/31/2572325/25 1801 08/30/25 1158 08/29/25 0821 08/29/25 0327 08/28/25 0119 08/26/257 08/26/252157 INR 1.0 -- 1.1 -- -- -- -- 1.1 HAUF 0.2 0.1 -- 0.2 0.3 0.3 < > -- < > = values in this interval not displayed. ABO: Recent Labs 08/26/252205 ABO A HEME/ENDO: Recent Labs 08/27/25 0311 08/26/252157 FERRITIN 85 -- IRONSAT 32 -- HGBA1C -- 10.2* CARDIAC: Recent Labs 08/27/25 2153 08/27/25 1812 08/27/25 1641 08/27/25 1436 08/27/25 1238 08/27/25 1007 08/27/25 0834 08/27/25 0541 08/27/25 0004 08/26/252157 TROPHS 75,417* 81,323* 84,650* 81,520* 67,357* 57,661* 50,216* 41,750* < > 9,126* BNP -- -- -- -- -- -- -- -- -- 104* < > = values in this interval not displayed. No results for input(s): CHOL , LDLF , LDLCALC , HDL , TRIG in the last 89137 hours. TOX: Recent Labs 08/30/25 0408 AMPHETAMINE Presumptive Negative BENZO Presumptive Positive* CANNABINOID Presumptive Negative COCAI Presumptive Negative FENTANYL Presumptive Positive* OPIATE Presumptive Positive* OXYCODONE Presumptive Positive* PCP Presumptive Negative MICRO: No results for input(s): ESR , CRP , PROCAL in the last 91768 hours. No results found for the last 90 days. EKG: Recent Labs 08/30/25 1406 08/29/25 1100 08/29/25 0601 08/28/25 22208/28/25 0603 ATRRATE 83 91 102 < > 78 VENTRATE 69 72 102 < > 78 PRINT 296 -- 228 -- 140 QRSDUR 106 98 86 < > 78 QTCFRED 475 461 400 < > 399 QTCCALCB 486 475 437 < > 417 < > = values in this interval not displayed. Echocardiogram: Recent Labs 08/28/25 0926 EF 58 LVIDD 4.54 Transthoracic Echo (TTE) Complete With Contrast 08/28/2025 [facility], [address] [place] [address] and TRANSTHORACIC ECHOCARDIOGRAM REPORT Patient Name: ASA THOMPSON Reading Physician: [id number] Gilmar Branham MD Study Date: 08/28/2025 Ordering Provider: [id number] SPENCER KONG MRN/PID: [id number] Fellow: [id number] Arnel Ayala MD Nurse: Date of /Age: 11 1970 Health Promoter: Elvie CHENG Gender assigned at F Additional Staff: : Height: 165.10 cm Admit Date: 08/26/2025 Weight: 126.10 kg Admission Status: Inpatient - STAT BSA / BMI: 2.28 m2 / 46.26 kg/m2 Blood Pressure: 104/61 mmHg Department Location: [facility] [place] Study Type: TRANSTHORACIC ECHO (TTE) COMPLETE Diagnosis/ICD: Atherosclerotic heart disease of platinum coronary artery without angina pectoris-I25.10 Indication: C/F ADHF CPT Code: Echo Complete w Full Doppler-[id number] Patient History: Pertinent History: CAD (moderate RCA disease 2009), ?LV thrombus noted on TTE 2023 (was discharged on DOAC, but no fabiano history), T2DM (last A1c 10.2%) on insulin c/b neuropathy, R cerebellar stroke 2023, Carotid artery stenosis, CKD3b, atrophic kidney s/p nephrectomy 2021, HLD, HTN, Hypothyroidism, obesity. Study Detail: The following Echo studies were performed: M-Mode, Doppler and color flow. Optison used as a contrast agent for endocardial border definition. Total contrast used for this procedure was 3 mL via IV push. Critical Event [...] aortic valve area by VTI is 1.81 cm witha peak velocity of 2.09 m/s. The peak and mean gradients are 17 mmHg and 8 mmHg, respectively with a dimensionless index of 0.71. There is moderate aortic valve cusp calcification. There is moderate aortic valve thickening. There is reduced aortic valve non coronary cusp excursion. There is evidence of mild aortic valve stenosis. There is trace aortic valve regurgitation. Aortic valve area by VTIis 1.81 cm2 with peak and mean gradients of 17 mmHg and 8 mmHg, respectively. SVi is notably low at17 mL/m2 which may explain the low velocities. [...] LA Area A2C: 22.0 cm2 LA Major [place]on A4C: 5.8 cm LA [place] A2C: 5.3 cm RIGHT ATRIUM: Normal Ranges: RA Vol A4C: 44.7 ml (8.3-19.5ml) RA Vol Index A4C: 19.6 ml/m2 RA Area A4C: 17.0 cm2 RA [place] A4C: 5.5 cm LV SYSTOLIC FUNCTION: Normal [...] AoV Mean P.3 mmHg (1.7-11.5mmHg) LVOT Max Krupa: 1.07 m/s (<=1.1m/s) AoV VTI: 34.40 cm [...] Accel Time: 83 msec (>120ms) PV Max Krupa: 1.0 m/s (0.6-0.9m/s) PV Max P.7 mmHg [id number] Gilmar Branham MD Electronically signed on 08/28/2025 at 11:03:44 AM Wall Scoring Final Impression CONCLUSIONS: 1. Left ventricular ejection fraction is [...] prior echo was a limited fellow study. Coronary Angiography: No results found for this or any previous visit from the past 1800 days. Right Heart Cath: No results found for this or any previous visit from the past 1800 days. Cardiac Scoring: CT angio coronary art with heartflow if score >30% 08/03/2024 Narrative Examination: CTA carotids Clinical History: Acute neurologic deficit, stroke suspected. Blurred vision, worst headache of life. Procedure: Multidetector CT angiogram performed through the cervical portion of the carotid arteries after intravenous injection of contrast material without complication, including source images andmaximum intensity projection 3-D images displayed and reviewed [...] origin is patent. There is calcified plaque alongthe common carotid artery without significant stenosis. There [...] Thereafter the cervical segment left internal carotid arteryappears patent to the skull base. Left external carotid artery is patent. There is at least 50% stenosis proximal left subclavian artery. There is extrinsic compression withmoderate stenosis involving the left vertebral artery at the level of the C4-C5 level between the foramina transversaria. Thereafter the left vertebral artery is patent to the skull base. Left vertebral artery is dominant. Right vertebral artery is patent to the skull base. Lung bases appearunremarkable. IMPRESSION: 1. There is 60% right internal carotid artery stenosis. 2. There is 70-80% left internal carotid artery stenosis. 3. There is 50% proximal/prevertebral left subclavian artery stenosis. 4. Moderate stenosis of the left vertebral artery due to extrinsic compression from osteophytes at the C4-C5 level. Finalized by Jenna Pack MD on 08/03/2024 5:34 PM Cardiac MRI: No results found for this or any previous visit from the past 1800 days. Nuclear:No results found for this or any previous visit from the past 1800 days. Metabolic Stress: No results found for this or any previous visit from the past 1800 days. Imaging Carotid duplex bilateral Result Date: 08/29/2025 1. Limited evaluation of internal carotid artery velocities due to noise interference. 2. Less than50% atheromatous plaque within the bilateral common carotid arteries. The remainder of the imaged vasculature appears patent. I personally reviewed the images/study and I agree with the findings as stated by resident physician Wilfredo Moore MD. This study was interpreted at [facility], [place], [place]. The velocity criteria are extrapolated from diameter data as defined by the Society of Radiologists in Ultrasound Consensus Conference Radiology 2003; 229;340-346. MACRO: None Signed by: Alex Moreno 08/29/2025 5:25 PM Dictation workstation: [id number] Transthoracic Echo Complete Result Date: 08/28/2025 CONCLUSIONS: 1. Left ventricular ejection fraction is normal by visual estimate at 55-60%. 2. Thereare multiple left ventricular wall motion abnormalities. 3. Entire inferior septum is abnormal. 4. On the contrast enhanced apical 4 and 3 chamber views (clips 99 and 113, respectively), there is thesuggestion of an apical filling defect compatible with LV thrombus. 5. There is normal right ventricular global systolic function. 6. Left ventricular cavity size is decreased. 7. There is left ventricular concentric remodeling. 8. The left atrium is enlarged. 9. There is moderate aortic valve cuspcalcification. 10. Aortic valve area by VTI is [...] prior echo was a limited fellow study. XR chest 1 view Result Date: 08/28/2025 1. No acute cardiopulmonary pathology I personally reviewed the images/study and I agree with the findings as stated by Roger Gerber DO PGY-3. This study was interpreted at [place], [place]. MACRO: None Signed by: Colin Rm 08/28/2025 7:34 AM Dictation workstation: [id number] US platinum renal with doppler Result Date: 08/28/2025 1. Mildly elevated resistive indices suggestive of [...] DO, PGY-4. This study was interpreted at [place], [place]. MACRO: None Signed by: Goran Bowie 08/28/2025 6:16 AM Dictation workstation: [id number] XR chest 1 view Result Date: 08/27/2025 1. The intra-aortic balloon pump (IABP) radiopaque tip projects at the level of T5, consistent withpositioning within the descending thoracic aorta. Recommend slight advancement to position the tip just distal to the origin of the left subclavian artery for optimal function. 2. Findings suggestiveof pulmonary edema with small right pleural effusion. I personally reviewed the images/study and I agree with the findings as stated by Hannah Franklin DO, PGY-4. This study was interpreted at [place], [place]. MACRO: None Signed by: Colin Rm 08/27/2025 4:32 PM Dictation workstation: [id number] Transthoracic Echo (TTE) Limited Result Date: 08/27/2025 CONCLUSIONS: 1. The left ventricle was not well visualized. The left ventricular ejection fraction could not be measured. 2. There is moderate aortic valve cusp calcification. 3. There is moderate mitral annular calcification. Cardiology, Vascular, and Other Imaging LDA: External Urinary Catheter (Active) Placement Date/Time: 08/29/251943 Number of days: 1 NUTRITION: Adult diet Regular, Cardiac; 70 gm fat; 2 - 3 grams Sodium EMERGENCY CONTACT: Extended Emergency Contact Information Primary Emergency Contact: Arian Thompson Mobile Relation: Son CODE STATUS: Full Code DISPO: Discharge Planning Living Arrangements: Spouse/significant other Support Systems: Spouse/significant other, Children Assistance Needed: Patient was independent with all ADLs prior to admission. Type of Residence: Private residence Who is requesting discharge planning?: Provider Home or Post Acute Services: (TBD) Expected Discharge Disposition: Home Does the patient need discharge transport arranged?: No AMPAC: Daily Activity - Total Score: 24 FOLLOWUP: No future appointments. [1] Medications Prior to Admission Medication Sig Dispense Refill Last Dose/Taking atorvastatin (Lipitor) 80 mg tablet Take 1 tablet (80 mg) by mouth once daily. Taking clopidogrel (Plavix) 75 mg tablet Take 1 tablet (75 mg) by mouth once daily. Taking gabapentin (Neurontin) 600 mg tablet Take 2 tablets (1,200 mg) by mouth 2 times a day. Taking hydrALAZINE (Apresoline) 25 mg tablet Take 1 tablet (25 mg) by mouth 3 times a day. Taking insulin NPH and regular human (HumuLIN 70-30, NovoLIN 70-30) 100 unit/mL (70-30) injection Inject under the skin. Insulin Nph And Regular Human (Humulin 70/30 U-100 Insulin) 100 unit/mL (70-30) suspension Active 80 UNIT SUBQ every morning May 02, 2024 12:00am 80 AM AND 50 PM Complies with drug therapy Taking Actos 15 mg tablet Take 1 tablet (15 mg) by mouth once daily. (Patient not taking: Reported on 08/27/2025) Not Taking aspirin 81 mg EC tablet Take 1 tablet (81 mg) by mouth once daily. cholecalciferol (Vitamin D-3) 25 mcg (1,000 units) capsule Take 2 capsules (50 mcg) by mouth once daily. levothyroxine (Tirosint) 125 mcg capsule Take 1 capsule (125 mcg) by mouth once every 24 hours. In morning on empty stomach * Fawn Zendejas MD - 08/30/2025 4:45 PM EDT Subjective Interval History: Asa Thompson has no new complaints Medications Current Medications[1] Objective Physical Exam Heart S1 S2 RRR, Lungs CTA, no edema Vital signs in last 24 hours: Temp: [36.3 C (97.3 F)-36.4 C (97.5 F)] 36.3 C (97.3 F) Heart Rate: [68-82] 82 Resp: [14-18] 18 BP: (102-142)/(50-74) 110/57 Intake/Output last 3 shifts: I/O last 3 completed shifts: In: 414.6 (3.5 mL/kg) [P.O.:240; I.V.:174.6 (1.5 mL/kg)] Out: 850 (7.3 mL/kg) [Urine:700 (0.2 mL/kg/hr); Emesis/NG output:150] Weight: 116.9 kg Labs: Results from last 7 days Lab Units 08/30/25 0707 WBC AUTO x10*3/uL 14.2* RBC AUTO x10*6/uL 3.47* HEMOGLOBIN g/dL 9.9* HEMATOCRIT % 30.3* Results from last 7 days Lab Units 08/30/25 0707 SODIUM mmol/L 126* POTASSIUM mmol/L 3.7 CHLORIDE mmol/L 90* CO2 mmol/L 18* BUN mg/dL 68* CREATININE mg/dL 6.23* CALCIUM mg/dL 7.9* PHOSPHORUS mg/dL 8.5* MAGNESIUM mg/dL 2.43* BILIRUBIN TOTAL mg/dL 0.7 ALT U/L 20 AST U/L 29 Assessment/Plan Assessment & Plan Coronary artery disease involving platinum coronary artery of platinum heart without angina pectoris OMAR 54 years old female with past medical history of uncontrolled diabetes type 2, hypertension, right solitary kidney and CKD stage IIIb the patient was admitted to the cardiac ICU due to recent STEMI with a complicated PCI causing coronary dissection. Developed OMAR on CKD urine output is improving with conservative management/no diuretics given. Would limit free water intake and reconstitute all IV in normal saline. No indications for dialysis, will follow. Fawn Zendejas MD 08/30/2025 4:45 PM [1] Current Facility-Administered Medications: acetaminophen (Tylenol) tablet 650 mg, 650 mg, oral, q6h PRN, JOANN Isidro, ANTONIO, 650 mg at 08/28/252025 amLODIPine (Norvasc) tablet 10 mg, 10 mg, oral, Daily, THERESA Isidro CNP, ANTONIO, 10 mg at 08/30/25 09 aspirin chewable tablet 81 mg, 81 mg, oral, Daily, JOANN Isidro DNP, 81 mg at 08/30/25 09 atorvastatin (Lipitor) tablet 80 mg, 80 mg, oral, Nightly, JOANN Isidro DNP, 80 mgat 08/29/252023 cholecalciferol (Vitamin D-3) tablet 50 mcg, 50 mcg, oral, Daily, JOANN Isidro, ANTONIO, 50 mcg at 08/30/25 09 dextrose 50 % injection 12.5 g, 12.5 g, intravenous, q15 min PRN, JOANN Isidro DNP dextrose 50 % injection 25 g, 25 g, intravenous, q15 min PRN, JOANN Isidro DNP ezetimibe (Zetia) tablet 10 mg, 10 mg, oral, Nightly, Spencer Kong MD [Held by provider] gabapentin (Neurontin) capsule 600 mg, 600 mg, oral, BID, JOANN Isidro DNP glucagon (Glucagen) injection 1 mg, 1 mg, intramuscular, q15 min PRN, JOANN Isidro DNP glucagon (Glucagen) injection 1 mg, 1 mg, intramuscular, q15 min PRN, JOANN Isidro DNP heparin 25,000 Units in dextrose 5% 250 mL (100 Units/mL) infusion (premix), 0- 4,000 Units/hr, intravenous, Continuous, JOANN Weathers, Last Rate: 10 mL/hr at 08/30/25 1207, 1,000 Units/hr at 08/30/25 1207 insulin glargine (Lantus) injection 30 Units, 30 Units, subcutaneous, q AM, JOANN Isidro DNP, 30 Units at 08/30/25 0947 insulin lispro injection 0-5 Units, 0-5 Units, subcutaneous, TID AC, JOANN Isidro DNP, 2 Units at 08/30/25 0809 levothyroxine (Synthroid, Levoxyl) tablet 125 mcg, 125 mcg, oral, Daily, JOANN Isidro DNP, 125 mcg at 08/30/25 0635 melatonin tablet 3 mg, 3 mg, oral, Daily, JOANN Isidro DNP, 3 mg at 08/29/252023 [Held by provider] metoprolol tartrate (Lopressor) tablet 25 mg, 25 mg, oral, BID, JOANN Isidro, ANTONIO, 25 mg at 08/30/25 0942 ondansetron (Zofran) tablet 4 mg, 4 mg, oral, q8h PRN OR ondansetron (Zofran) injection 4 mg, 4mg, intravenous, q8h PRN, THERESA Isidro CNP, ANTONIO, 4 mg at 08/29/25 1137 oxyCODONE (Roxicodone) immediate release tablet 5 mg, 5 mg, oral, q6h PRN, JOANN Isidro DNP, 5 mg at 08/28/25 2156 perflutren lipid microspheres (Definity) injection 0.5-10 mL of dilution, 0.5-10 mL of dilution, intravenous, Once in imaging, JOANN Isidro DNP [Held by provider] pioglitazone (Actos) tablet 15 mg, 15 mg, oral, Daily, JOANN Isidro, ANTONIO [COMPLETED] ticagrelor (Brilinta) tablet 180 mg, 180 mg, oral, Once, 180 mg at 08/27/252004 FOLLOWED BY ticagrelor (Brilinta) tablet 90 mg, 90 mg, oral, BID, JOANN Isidro, ANTONIO, 90 mg at 08/30/25 0942 warfarin (Coumadin) tablet 3 mg, 3 mg, oral, Daily, JOANN Weathers * JOANN Weathers - 08/30/2025 3:52 PM EDT Subjective Data: Denies CP/SOB at rest, at bedside. Discussed plans for further renal work-up and for bridging to coumadin for therapeutic INR. - START heparin gtt/coumadin 3mg - HOLD ASA to avoid triple therapy (pending int. Cards input) - HOLD BB iso new AV block on EKG, ?consider EP if symptomatic - Leukocytosis, urine cx pending - monitor hyponatremia Overnight Events: No acute events overnight. Last evening was safely transferred out of CICU to [facility] Service for further management of post-NSTEMI/STEMI care. Objective Data: Last Recorded Vitals: Vitals: 08/30/25 0508 08/30/25 0736 08/30/25 1138 08/30/25 1356 BP: 131/56 142/74 132/62 139/73 BP Location: Left arm Left arm Patient Position: Lying Lying Pulse: 68 79 75 80 Resp: 16 16 14 Temp: 36.3 C (97.3 F) 36.4 C (97.5 F) 36.4 C (97.5 F) TempSrc: Temporal Temporal SpO2: 96% 97% 94% 96% Weight: Height: Last Labs: CBC - 08/30/2025: 7:07 AM 14.2 9.9 249 30.3 CMP - 08/30/2025: 7:07 AM 7.9 6.6 29 --- 0.7 8.5 3.4 20 116 PTT - 08/30/2025: 11:58 AM 1.1 11.8 25 TROPHS Date/Time Value Ref Range Status 08/27/2025 09:53 PM 75,417 0 - 34 ng/L Final 08/27/2025 06:12 PM 81,323 0 - 34 ng/L Final Comment: Previous result verified on 08/26/20252316 on specimen/case [id number] called with component TRPHS for procedure Troponin I, High Sensitivity with value 9,126 ng/L. 08/27/2025 04:41 PM 84,650 0 - 34 ng/L Final Comment: Previous result verified on 08/26/20252316 on specimen/case [id number] called with component TRPHS for procedure Troponin I, High Sensitivity with value 9,126 ng/L. BNP Date/Time Value Ref Range Status 08/26/2025 09:58 PM 104 0 - 99 pg/mL Final HGBA1C Date/Time Value Ref Range Status 08/26/2025 09:58 PM 10.2 See comment % Final Last I/O: I/O last 3 completed shifts: In: 414.6 (3.5 mL/kg) [P.O.:240; I.V.:174.6 (1.5 mL/kg)] Out: 850 (7.3 mL/kg) [Urine:700 (0.2 mL/kg/hr); Emesis/NG output:150] Weight: 116.9 kg Past Cardiology Tests (Last 3 Years): EKG: Electrocardiogram, 12-lead PRN ACS symptoms 08/30/2025 (Preliminary) Echo: Transthoracic Echo Complete 08/28/2025: 1. Left ventricular ejection fraction is normal [...] prior echo was a limited fellow study. Transthoracic Echo (TTE) Limited 08/26/2025: 1. The left ventricle was not well visualized. The left ventricular ejection fraction could not be measured. 2. There is moderate aortic valve cusp calcification. 3. There is moderate mitral annular calcification. Ejection Fractions: EF Date/Time Value Ref Range Status 08/28/2025 09:26 AM 58 % Cath: No results found for this or any previous visit from the past 1095 days. Stress Test: No results found for this or any previous visit from the past 1095 days. Cardiac Imaging: CT angio coronary art with heartflow if score >30% 08/03/2024 1. There is 60% right internal carotid artery stenosis. 2. There is 70-80% left internal carotid artery stenosis. 3. There is 50% proximal/prevertebral left subclavian artery stenosis. 4. Moderate stenosis of the left vertebral artery due to extrinsic compression from osteophytes at the C4-C5 level. Inpatient Medications: Scheduled Medications[1] PRN Medications[2] Continuous Medications[3] Physical Exam: General: NAD, lying in bed Skin: warm and dry throughout, R groin site mild ecchymosis, dressing C/D/I without hematoma/oozing/tenderness Head/ neck: no JVD Cardiac: irregular rate and rhythm, AV block on tele HR 60s Pulm: CTAB, room air GI: soft, nontender, non-distended, obese Extremities: no LE edema Neuro: no focal neuro deficits, a+ox4 Psych: appropriate mood and behavior Assessment/Plan Asa Thompson is a 54 y.o. female with CAD (moderate RCA disease 2009), ?LV thrombus noted on [id number] (was discharged on DOAC, but no fabiano history), T2DM (last A1c 10.2%) on insulin c/b neuropathy,R cerebellar stroke 2023, Carotid artery stenosis, CKD3b, atrophic kidney s/p nephrectomy 2021, HLD, HTN, Hypothyroidism, obesity who presented on 08/25 to [facility] for 3 days of YE, found to have NSTEMI, s/p JOSELITO to RCA on 08/26 c/b distal RCA lesion dissection, stent embolization, and spiral dissection, STEMI type 4 A. IABP was placed and patient was transferred to [facility] 08/[address] surgery evaluation (no CABG given isolated RCA lesion) with nephrology following foroliguric OMAR. IABP removed 08/28, weaned off nitroprusside gtt since 08/27. [facility] evening, of note had a fall upon arrival without sustained injuries. H/o Paramedian R Cerebellar Hemisphere Stroke H/o Multiple Lacunar infarcts in basal ganglia - Found on MRI 2023 after presenting for severe headache and double vision of L eye. Also found to have significant Carotid Artery stenosis as discussed below. Plavix loaded. Discharged on ASA/Plavixfor stroke and Apixiban 5 BID for ?LV thrombus (although, no fill history) - Last Neuro stroke note while inpatient recommended either ASA + Eliquis or ASA + Clopidogrel but not triple therapy - cont. Statin Concerns for Mobitz Type II AV Block - EKG today, HR 40-60s; asymptomatic - HOLD metop tart 25mg BID - ?consider EP consult if indicated STEMI s/p RCA JOSELITO c/b distal RCA lesion dissection, stent embolization, and spiral dissection (at OSH 08/26) - normal EF on TTE from 2023 and on repeat TTE this admit - Initially reported to have NSTEMI, but ECG on arrival to CICU shows STEMI in inferior leads :: RCA JOSELITO c/b distal RCA lesion dissection, stent embolization, and spiral dissection - s/p CTS consult (08/27): given isolated RCA lesion, CABG not recommended - s/p nitroprusside gtt (weaned 08/27) - s/p IABP (removed 08/28) - in ICU, switched from plavix to brilinta (unclear reasons) - repeat EKG today iso bilat arm burning , results as above without new ischemic changes - remains free of chest pain - plans w/BB as above, cont. Brilinta 90mg BID, statin 80mg, HOLD ASA to avoid triple therapy -- of note: (08/30) reached out to int. Cards (Dr. Kong) regarding triple therapy; pending response. Given neuro history, likely continuing brilinta/coumadin upon discharge. Suspected LV thrombus - discharged 07/2024 for Apixiban 5 BID for ?LV thrombus. Outpatient cardiology doubted true LV thrombus but follow up TTE or cMRI never completed - TTE 08/27 - EF 55-60%, inferior septum abnormal wall motion. Suggestion of LV thrombus, decreasedLV cavity. Severe Mitral annular calcification, moderate aortic valve cusp calcification - ddx calcified amorphous tumor or thrombus. Small pericardial effusion. Small pericardial effusion , was on heparin gtt; STOPPED by ICU on 08/29 - no DOACs given worsening kidney function - bridge with heparin gtt to coumadin, starting 3mg this evening - goal INR 2-3, INR today=1.1, arrange for OP coumadin clinic appt. Prior to discharge H/o Carotid Artery Stenosis L>R, stable - CT Carotid 07/2024 - There is 60% right internal carotid artery stenosis. 2. There is 70-80% left internal carotid artery stenosis. 3. There is 50% proximal/prevertebral left subclavian artery stenosis. - Was recommended to follow up with Vascular as outpatient but no documented follow up - carotid duplex (08/29): bilat <50% stenosis - cont. OP f/up as indicated Oliguric OMAR on CKD3b, worsening Atrophic kidney s/p nephrectomy 2021 - suspect related to hemodynamic insult - unclear baseline Cr - Cr today: 6.23 (6.40 peak, 5.37, 2.06 on admit) - Renal US 08/27 without renal artery stenosis, no hydronephrosis - FENa suggesting pre-renal cause (hypovolemia) - renal following, appreciate recs (08/30): limit free H2O intake, reconstitute all IV in normal saline, no indication for HD - Renally dose meds, avoid nephrotoxins HTN Emergency, treated HTN HLD - BP on presentation to [facility] 237/102 - SBP past 24hrs: 110-120 - 1 year ago, XEC=543 - cont. Amlodipine 10mg, other BP meds as above - cont. Statin 80mg Hyponatremia, stable Hyperkalemia, treated - Na today: 126 - no neuro deficits, cont. To trend & monitor for now - s/p Lokelma for total 6 doses - K today=3.7 Normocytic Anemia, stable - likely AOCD and acute blood loss following procedures - b12, folate, iron, TIBC, ferritin wnl - daily hgb stable ~9 - no overt signs of bleeding Leukocytosis of unclear origin Suspicious Urinalysis - WBC today: 14.2 (13.5, 11.4 on admit) - CXR (08/28) no acute cardiopulmonary process - UA (08/30) +leukos (negative nitrites), urine cx pending - afebrile, non-toxic, denies dysuria - given lack of s/sx, defer antbx at this time T2DM c/b neuropathy - (08/2025) hgb A1c 10.2% - Takes pioglitazone and 70 units of NPH Regular 70-30 mix at home - cont. HOLDING home pioglitazone (& gabapentin iso OMAR) - cont. Lantus 30u every AM - TATE accuchrosendo, SSI#1, hypoglycemia protocol Fall - (08/29) patient slipped out of bed/landed on her knees while self-adjusting - staff assisted, patient denies injuries - bed/chair exit alarms - cont. PT/OT Hypothyroidism - Continue home levothyroxine 125mcg Vitamin D deficiency - Continue home repletion Agitation, resolved - cont. To monitor DVT ppx: heparin gtt/coumadin bridge DISPO: PT/OT prev. Rec'd low-intensity care - discharge mid-next week, pending improvement in OMAR and therapeutic INR All labs, vital signs, tests & imaging results, and medications were reviewed. Seen and discussed with Dr. Lou Code Status: Full Code Dayanna Rendon, CHITO-COMMODITIES REQUIREMENTS ANALYST [1] Scheduled medications Medication Dose Route Frequency amLODIPine 10 mg oral Daily aspirin 81 mg oral Daily atorvastatin 80 mg oral Nightly cholecalciferol 50 mcg oral Daily ezetimibe 10 mg oral Nightly [Held by provider] gabapentin 600 mg oral BID insulin glargine 30 Units subcutaneous q AM insulin lispro 0-5 Units subcutaneous TID AC levothyroxine 125 mcg oral Daily melatonin 3 mg oral Daily [Held by provider] metoprolol tartrate 25 mg oral BID perflutren lipid microspheres 0.5-10 mL of dilution intravenous Once in imaging [Held by provider] pioglitazone 15 mg oral Daily ticagrelor 90 mg oral BID warfarin 3 mg oral Daily [2] PRN medications Medication acetaminophen dextrose dextrose glucagon glucagon ondansetron Or ondansetron oxyCODONE [3] Continuous Medications Medication Dose Last Rate heparin 0-4,000 Units/hr 1,000 Units/hr (08/30/25 1207) Cosigned by Jenna Lou MD at 08/31/2025 12:42 PM EDT Associated attestation - Jenna Lou MD - 08/31/2025 12:42 PM EDT This is a shared visit. I have reviewed the Advanced Practice Provider's encounter note, approve the Advanced Practice Provider's documentation, and provide the following additional information from my personal encounter. Please see my progress note from today for additional details. Jenna Lou MD * Jenna Lou MD - 08/30/2025 8:18 AM EDT [facility] Attending Shared Visit Note This is a shared visit. Please see Advanced Practice Provider's encounter note for additional details. Briefly, 54F with type 4A STEMI after complicated RCA PCI at OSH, transferred with IABP now gouweas18/23, chest-pain free. History of prior nephrectomy, now with [facility] Exam: Warm, euvolemic. No chest pain. Plan: - monitor OMAR, appreciate nephro - LV thrombus: heparin -> coumadin -DAPT, - statin, - metoprolol, - amlodipine. Dispo: pending renal function Jenna Lou MD Assessment & Plan Coronary artery disease involving platinum coronary artery of platinum heart without angina pectoris Objective Admit Date: 08/26/2025 Hospital Length of Stay: 4 Home: [place] [address] MEDICATIONS Infusions: Scheduled: amLODIPine, 10 mg, Daily aspirin, 81 mg, Daily atorvastatin, 80 mg, Nightly cholecalciferol, 50 mcg, Daily ezetimibe, 10 mg, Nightly [Held by provider] gabapentin, 600 mg, BID insulin glargine, 30 Units, q AM insulin lispro, 0-5 Units, TID AC levothyroxine, 125 mcg, Daily melatonin, 3 mg, Daily metoprolol tartrate, 25 mg, BID perflutren lipid microspheres, 0.5-10 mL of dilution, Once in imaging [Held by provider] pioglitazone, 15 mg, Daily ticagrelor, 90 mg, BID PRN: acetaminophen, 650 mg, q6h PRN dextrose, 12.5 g, q15 min PRN dextrose, 25 g, q15 min PRN glucagon, 1 mg, q15 min PRN glucagon, 1 mg, q15 min PRN ondansetron, 4 mg, q8h PRN Or ondansetron, 4 mg, q8h PRN oxyCODONE, 5 mg, q6h PRN Prior to Admission Meds: Prescriptions Prior to Admission[1] Vitals: 08/30/2025 7:36 AM 08/30/2025 5:08 AM 08/30/2025 3:44 AM 08/29/2025 11:28 PM 08/29/2025 8:31 PM 08/29/2025 4:09 PM 08/29/2025 3:42 PM Vitals Systolic 142 131 102 116 125 113 Diastolic 74 56 50 53 55 52 BP Location Left arm Left arm Heart Rate 79 68 68 75 72 74 Temp 36.3 C (97.3 F) 36.4 C (97.5 F) 36.4 C (97.5 F) 36.4 C (97.5 F) 36.5 C (97.7 F) Resp 16 14 16 Weight (lb) 257.72 BMI 42.89 kg/m2 BSA (m2) 2.32 m2 Wt Readings from Last 5 Encounters: 08/30/25 117 kg (257 lb 11.5 oz) 08/26/25 116 kg (255 lb 11.7 oz) Intake/Output Summary (Last 24 hours) at 08/30/2025 0818 Last data filed at 08/29/2025 1327 Gross per 24 hour Intake 21.7 ml Output -- Net 21.7 ml CHEST: Unlabored, Clear, Diminished CV: Heart block NEURO: RASS: Alert and calm CAM: Negative LOC: Alert Cognition: Follows commands GCS: 15 DATA: CMP: Recent Labs 08/29/25 0327 08/28/25 1202 08/28/25 0410 08/28/25 0119 08/27/2531008/26/25 2158 NA 131* 128* 131* -- 135* 131* K 4.1 4.7 5.9* -- 4.7 5.4* CL 93* 93* 98 -- 100 100 CO2 22 21 17* -- 20* 17* ANIONGAP 20 19 22* -- 20 19 BUN 62* 51* 49* -- 34* 28* CREATININE 6.40* 5.37* 5.03* -- 2.51* 2.06* EGFR 7* 9* 10* -- 22* 28* MG 2.28 2.32 -- 2.37 2.15 2.11 Recent Labs 08/29/25 0327 08/28/25 1202 08/28/25 0410 08/28/2511808/27/2531008/26/252157 ALBUMIN 3.1* 3.5 3.3* 3.4 3.5 3.8 ALT 26 -- -- 33 25 19 AST 67* -- -- 161* 102* 40* BILITOT 0.7 -- -- 0.5 0.4 0.5 CBC: Recent Labs 08/30/25 0707 08/29/25 0327 08/28/25 01108/27/2531008/26/252157 WBC 14.2* 13.5* 13.3* 11.3 11.4* HGB 9.9* 9.2* 9.6* 10.4* 11.1* HCT 30.3* 27.2* 29.0* 29.6* 33.3* PLT 249 238 258 303 353 MCV 87 82 84 81 84 COAG: Recent Labs 08/29/25 0821 08/29/25 03208/28/25 01108/27/25 0834 08/27/25 0320 08/26/25 2207 08/26/252157 INR -- -- -- -- -- -- 1.1 HAUF 0.2 0.3 0.3 0.5 0.5 < > -- < > = values in this interval not displayed. ABO: Recent Labs 08/26/252205 ABO A HEME/ENDO: Recent Labs 08/27/25 0311 08/26/252157 FERRITIN 85 -- IRONSAT 32 -- HGBA1C -- 10.2* CARDIAC: Recent Labs 08/27/25 2153 08/27/25 1812 08/27/25 1641 08/27/25 1436 08/27/25 1238 08/27/25 1007 08/27/25 0834 08/27/25 0541 08/27/25 0004 08/26/252157 TROPHS 75,417* 81,323* 84,650* 81,520* 67,357* 57,661* 50,216* 41,750* < > 9,126* BNP -- -- -- -- -- -- -- -- -- 104* < > = values in this interval not displayed. No results for input(s): CHOL , LDLF , LDLCALC , HDL , TRIG in the last 72745 hours. TOX:No results for input(s): AMPHETAMINE , BENZO , CANNABINOID , COCAI , FENTANYL , OPIATE , OXYCODONE , PCP in the last 01923 hours. No lab exists for component: BARBSCRUR MICRO: No results for input(s): ESR , CRP , PROCAL in the last 54023 hours. No results found for the last 90 days. EKG: Recent Labs 08/29/25 0601 08/28/25 0603 08/27/252154 ATRRATE 102 78 98 VENTRATE 102 78 98 PRINT 228 140 136 QRSDUR 86 78 78 QTCFRED 400 399 402 QTCCALCB 437 417 436 Echocardiogram: Recent Labs 08/28/25 0926 EF 58 LVIDD 4.54 Transthoracic Echo (TTE) Complete With Contrast 08/28/2025 [facility], [address] [place] [address] and TRANSTHORACIC ECHOCARDIOGRAM REPORT Patient Name: ASA THOMPSON Reading Physician: [id number] Gilmar Branham MD Study Date: 08/28/2025 Ordering Provider: [id number] SPENCER KONG MRN/PID: [id number] Fellow: [id number] Arnel Ayala MD Nurse: Date of /Age: 11 1970 Health Promoter: Elvie CHENG Gender assigned at F Additional Staff: : Height: 165.10 cm Admit Date: 08/26/2025 Weight: 126.10 kg Admission Status: Inpatient - STAT BSA / BMI: 2.28 m2 / 46.26 kg/m2 Blood Pressure: 104/61 mmHg Department Location: [facility] [place] Study Type: TRANSTHORACIC ECHO (TTE) COMPLETE Diagnosis/ICD: Atherosclerotic heart disease of platinum coronary artery without angina pectoris-I25.10 Indication: C/F ADHF CPT Code: Echo Complete w Full [id number] Patient History: Pertinent History: CAD (moderate RCA disease 2009), ?LV thrombus noted on TTE 2023 (was discharged on DOAC, but no fabiano history), T2DM (last A1c 10.2%) on insulin c/b neuropathy, R cerebellar stroke 2023, Carotid artery stenosis, CKD3b, atrophic kidney s/p nephrectomy 2021, HLD, HTN, Hypothyroidism, obesity. Study Detail: The following Echo studies were performed: M-Mode, Doppler and color flow. Optison used as a contrast agent for endocardial border definition. Total contrast used for this procedure was 3 mL via IV push. Critical Event [...] aortic valve area by VTI is 1.81 cm witha peak velocity of 2.09 m/s. The peak and mean gradients are 17 mmHg and 8 mmHg, respectively with a dimensionless index of 0.71. There is moderate aortic valve cusp calcification. There is moderate aortic valve thickening. There is reduced aortic valve non coronary cusp excursion. There is evidence of mild aortic valve stenosis. There is trace aortic valve regurgitation. Aortic valve area by VTIis 1.81 cm2 with peak and mean gradients of 17 mmHg and 8 mmHg, respectively. SVi is notably low at17 mL/m2 which may explain the low velocities. [...] LA Area A2C: 22.0 cm2 LA Major Pigeon A4C: 5.8 cm LA [place] A2C: 5.3 cm RIGHT ATRIUM: Normal Ranges: RA Vol A4C: 44.7 ml (8.3-19.5ml) RA Vol Index A4C: 19.6 ml/m2 RA Area A4C: 17.0 cm2 RA [place]on A4C: 5.5 cm LV SYSTOLIC FUNCTION: Normal [...] AoV Mean P.3 mmHg (1.7-11.5mmHg) LVOT Max Krupa: 1.07 m/s (<=1.1m/s) AoV VTI: 34.40 cm [...] Accel Time: 83 msec (>120ms) PV Max Krupa: 1.0 m/s (0.6-0.9m/s) PV Max P.7 mmHg [id number] Gilmar Branham MD Electronically signed on 08/28/2025 at 11:03:44 AM Wall Scoring Final Impression CONCLUSIONS: 1. Left ventricular ejection fraction is [...] prior echo was a limited fellow study. Coronary Angiography: No results found for this or any previous visit from the past 1800 days. Right Heart Cath: No results found for this or any previous visit from the past 1800 days. Cardiac Scoring: CT angio coronary art with heartflow if score >30% 08/03/2024 Narrative Examination: CTA carotids Clinical History: Acute neurologic deficit, stroke suspected. Blurred vision, worst headache of life. Procedure: Multidetector CT angiogram performed through the cervical portion of the carotid arteries after intravenous injection of contrast material without complication, including source images andmaximum intensity projection 3-D images displayed and reviewed [...] origin is patent. There is calcified plaque alongthe common carotid artery without significant stenosis. There [...] Thereafter the cervical segment left internal carotid arteryappears patent to the skull base. Left external carotid artery is patent. There is at least 50% stenosis proximal left subclavian artery. There is extrinsic compression withmoderate stenosis involving the left vertebral artery at the level of the C4-C5 level between the foramina transversaria. Thereafter the left vertebral artery is patent to the skull base. Left vertebral artery is dominant. Right vertebral artery is patent to the skull base. Lung bases appearunremarkable. IMPRESSION: 1. There is 60% right internal carotid artery stenosis. 2. There is 70-80% left internal carotid artery stenosis. 3. There is 50% proximal/prevertebral left subclavian artery stenosis. 4. Moderate stenosis of the left vertebral artery due to extrinsic compression from osteophytes at the C4-C5 level. Finalized by Jenna Pack MD on 08/03/2024 5:34 PM Cardiac MRI: No results found for this or any previous visit from the past 1800 days. Nuclear:No results found for this or any previous visit from the past 1800 days. Metabolic Stress: No results found for this or any previous visit from the past 1800 days. Imaging Carotid duplex bilateral Result Date: 08/29/2025 1. Limited evaluation of internal carotid artery velocities due to noise interference. 2. Less than50% atheromatous plaque within the bilateral common carotid arteries. The remainder of the imaged vasculature appears patent. I personally reviewed the images/study and I agree with the findings as stated by resident physician Wilfredo Moore MD. This study was interpreted at [facility], [place], [place]. The velocity criteria are extrapolated from diameter data as defined by the Society of Radiologists in Ultrasound Consensus Conference Radiology 2003; 229;340-346. MACRO: None Signed by: Alex Moreno 08/29/2025 5:25 PM Dictation workstation: [id number] Transthoracic Echo Complete Result Date: 08/28/2025 CONCLUSIONS: 1. Left ventricular ejection fraction is normal by visual estimate at 55-60%. 2. Thereare multiple left ventricular wall motion abnormalities. 3. Entire inferior septum is abnormal. 4. On the contrast enhanced apical 4 and 3 chamber views (clips 99 and 113, respectively), there is thesuggestion of an apical filling defect compatible with LV thrombus. 5. There is normal right ventricular global systolic function. 6. Left ventricular cavity size is decreased. 7. There is left ventricular concentric remodeling. 8. The left atrium is enlarged. 9. There is moderate aortic valve cuspcalcification. 10. Aortic valve area by VTI is [...] prior echo was a limited fellow study. XR chest 1 view Result Date: 08/28/2025 1. No acute cardiopulmonary pathology I personally reviewed the images/study and I agree with the findings as stated by Roger Gerber DO PGY-3. This study was interpreted at [place], [place]. MACRO: None Signed by: Colin Rm 08/28/2025 7:34 AM Dictation workstation: [id number] US platinum renal with doppler Result Date: 08/28/2025 1. Mildly elevated resistive indices suggestive of [...] DO, PGY-4. This study was interpreted at [place], [place]. MACRO: None Signed by: Goran Bowie 08/28/2025 6:16 AM Dictation workstation: [id number] XR chest 1 view Result Date: 08/27/2025 1. The intra-aortic balloon pump (IABP) radiopaque tip projects at the level of T5, consistent withpositioning within the descending thoracic aorta. Recommend slight advancement to position the tip just distal to the origin of the left subclavian artery for optimal function. 2. Findings suggestiveof pulmonary edema with small right pleural effusion. I personally reviewed the images/study and I agree with the findings as stated by Hannah Franklin DO, PGY-4. This study was interpreted at [place], [place]. MACRO: None Signed by: Colin Rm 08/27/2025 4:32 PM Dictation workstation: [id number] Transthoracic Echo (TTE) Limited Result Date: 08/27/2025 CONCLUSIONS: 1. The left ventricle was not well visualized. The left ventricular ejection fraction could not be measured. 2. There is moderate aortic valve cusp calcification. 3. There is moderate mitral annular calcification. Cardiology, Vascular, and Other Imaging LDA: External Urinary Catheter (Active) Placement Date/Time: 08/29/251943 Number of days: 0 NUTRITION: Adult diet Regular, Cardiac; 70 gm fat; 2 - 3 grams Sodium EMERGENCY CONTACT: Extended Emergency Contact Information Primary Emergency Contact: Arian Thompson Mobile Relation: Son CODE STATUS: Full Code DISPO: Discharge Planning Living Arrangements: Spouse/significant other Support Systems: Spouse/significant other, Children Assistance Needed: Patient was independent with all ADLs prior to admission. Type of Residence: Private residence Who is requesting discharge planning?: Provider Home or Post Acute Services: (TBD) Expected Discharge Disposition: Home Does the patient need discharge transport arranged?: No AMPAC: Daily Activity - Total Score: 24 FOLLOWUP: No future appointments. [1] Medications Prior to Admission Medication Sig Dispense Refill Last Dose/Taking atorvastatin (Lipitor) 80 mg tablet Take 1 tablet (80 mg) by mouth once daily. Taking clopidogrel (Plavix) 75 mg tablet Take 1 tablet (75 mg) by mouth once daily. Taking gabapentin (Neurontin) 600 mg tablet Take 2 tablets (1,200 mg) by mouth 2 times a day. Taking hydrALAZINE (Apresoline) 25 mg tablet Take 1 tablet (25 mg) by mouth 3 times a day. Taking insulin NPH and regular human (HumuLIN 70-30, NovoLIN 70-30) 100 unit/mL (70-30) injection Inject under the skin. Insulin Nph And Regular Human (Humulin 70/30 U-100 Insulin) 100 unit/mL (70-30) suspension Active 80 UNIT SUBQ every morning May 02, 2024 12:00am 80 AM AND 50 PM Complies with drug therapy Taking Actos 15 mg tablet Take 1 tablet (15 mg) by mouth once daily. (Patient not taking: Reported on 08/27/2025) Not Taking aspirin 81 mg EC tablet Take 1 tablet (81 mg) by mouth once daily. cholecalciferol (Vitamin D-3) 25 mcg (1,000 units) capsule Take 2 capsules (50 mcg) by mouth once daily. levothyroxine (Tirosint) 125 mcg capsule Take 1 capsule (125 mcg) by mouth once every 24 hours. In morning on empty stomach * Sarah Interiano OT - 08/29/2025 11:45 AM EDT Occupational Therapy Evaluation and Treatment Patient Name: Asa Thompson Today's Date: 08/29/2025 Room: [address] [place] [address] Time Calculation Start Time: 913 Stop Time: 50 Time Calculation (min): 36 min Assessment IP OT Assessment OT Assessment: Pt presents w/ decreased activity tolerance, strength, coordination, balance and ROMresulting in increased need for assist w/ I/ADLs and the continued need for skilled OT services at Low intensity to allow for a safe and functional d/c. Prognosis: Good Evaluation/Treatment Tolerance: Patient tolerated treatment well Medical Staff Made Aware: Yes End of Session Communication: Bedside nurse End of Session Patient Position: Up in chair, Alarm off, not on at start of session Plan: Inpatient Plan Treatment Interventions: ADL retraining, Functional transfer training, Endurance training, Patient/family training, Cognitive reorientation, Compensatory technique education, Equipment evaluation/education OT Frequency for Current Admission: 2 times per week during this acute inpatient hospitalization OT Discharge Recommendations: Low intensity level of continued care Equipment Recommended upon Discharge: (Shower chair) OT Recommended Transfer Status: Stand by assist OT - OK to Discharge: Yes OT Assessment OT Assessment Results: Decreased ADL status, Decreased endurance, Decreased functional mobility, Decreased IADLs Prognosis: Good Evaluation/Treatment Tolerance: Patient tolerated treatment well Medical Staff Made Aware: Yes Strengths: Housing layout, Premorbid level of function Barriers to Participation: Comorbidities Subjective Current Problem: 1. Coronary artery disease involving platinum coronary artery of platinum heart without angina pectorisTransthoracic Echo (TTE) Limited Transthoracic Echo (TTE) Limited Transthoracic Echo Complete Transthoracic Echo Complete 2. OMAR (acute kidney injury) US platinum renal with doppler US platinum renal with doppler CANCELED: Renal artery duplex complete CANCELED: Renal artery duplex complete 3. Bilateral carotid artery stenosis Carotid duplex bilateral Carotid duplex bilateral General: Reason for Referral: This 54 y/o F presented on 08/25 to [facility] for 3 days of YE, found to have NSTEMI, s/p JOSELITO to RCA on 08/26 c/b distal RCA lesion dissection, stent embolization, and spiral dissection. IABP was placed and patient was transferred to [facility] for CT surgery evaluation. TTE - EF 55-60%, inferior septum abnormal wall motion. Suggestion of LV thrombus, decreased LV cavity. Severe MV calcification, moderate aortic valve cusp calcification. IABP pulled 08/28. Past Medical History Relevant to Rehab: CAD (moderate RCA disease 2009), ?LV thrombus noted on TTE 2023 (was discharged on DOAC, but no fabiano history), T2DM (last A1c 10.2%) on insulin c/b neuropathy, R cerebellar stroke 2023, Carotid artery stenosis, CKD3b, atrophic kidney s/p nephrectomy 2021, HLD,HTN, Hypothyroidism, obesity Prior to Session Communication: Bedside nurse Patient Position Received: Bed, 3 rail up, Alarm off, not on at start of session Family/Caregiver Present: No General Comment: Pt sup in bed on approach. Pleasant and agreeable to OT session. Pt noted to be orthostatic during session w/ dealyed onset of symptoms, but quick recovery. Groin site remains stablethroughout session Precautions: Medical Precautions: Cardiac precautions Vital Signs: 08/29/25 0914 08/29/25 0950 Vital Signs Vitals Session Pre OT Post OT Heart Rate 102 100 Resp 13 19 SpO2 94 % 95 % BP 141/76 147/56 MAP (mmHg) 92 79 Patient Position Lying Sitting Vital Signs Comment Upon EOB BP 130/82 (95); s/p SPT 109/67 (82), recovers w/in 1-2 min. Highest HR112 during session. -- Pain: Pain Assessment Pain Assessment: 0-10 0-10 (Numeric) Pain Score: 0 - No pain Objective Cognition: Overall Cognitive Status: Within Functional Limits Orientation Level: Oriented X4 Cognition Comments: Generally flat affect throughout session Insight: Within function limits Impulsive: Within functional limits Processing Speed: Delayed Home Living: Type of Home: House Lives With: Spouse Home Adaptive Equipment: None Home Layout: One level Home Access: Level entry Bathroom Shower/Tub: Walk-in shower Bathroom Equipment: None Prior Function: Level of [place]: Independent with ADLs and functional transfers, Independent with homemaking with ambulation Receives Help From: Family ADL Assistance: Independent Homemaking Assistance: Independent Ambulatory Assistance: Independent Vocational: Unemployed Leisure: Her dog Lidya Hand Dominance: Left Prior Function Comments: (+) Drives; (-) Falls ADL: Eating Assistance: Independent Grooming Assistance: Stand by Bathing Assistance: Minimal UE Dressing Assistance: Minimal LE Dressing Assistance: Moderate Toileting Assistance with Device: Minimal Activity Tolerance: Endurance: Tolerates 10 - 20 min exercise with multiple rests Early Mobility/Exercise Safety Screen: Proceed with mobilization - No exclusion criteria met Bed Mobility/Transfers: Bed Mobility/Transfers: Bed Mobility Bed Mobility: Yes Bed Mobility 1 Bed Mobility 1: Supine to sitting Level of Assistance 1: Moderate assistance Bed Mobility Comments 1: HOB slightly elevated 2/2 pt not being able to tolerate flat, assist pulling on OTR's arm as bed rail. Completed 2x throguhout session Bed Mobility 2 Bed Mobility 2: Sitting to supine Level of Assistance 2: Contact guard Bed Mobility Comments 2: Extended time required and Transfers Transfer: Yes Transfer 1 Technique 1: Sit to stand Transfer Device 1: (No AD) Transfer Level of Assistance 1: Contact guard Transfers 2 Technique 2: Stand pivot Transfer Device 2: (No AD) Transfer Level of Assistance 2: Contact guard Vision: Vision - Basic Assessment Current Vision: Wears glasses only for reading Sensation: Light Touch: No apparent deficits Strength: Strength Comments: BUE WFL via functional observation Coordination: Movements are Fluid and Coordinated: Yes Hand Function: Hand Function Gross Grasp: Functional Coordination: Functional Extremities: RUE RUE : Within Functional Limits, LUE LUE: Within Functional Limits Outcome Measures: [facility] Daily Activity Putting on and taking off regular lower body clothing: A little Bathing (including washing, rinsing, drying): A little Putting on and taking off regular upper body clothing: A little Toileting, which includes using toilet, bedpan or urinal: A little Taking care of personal grooming such as brushing teeth: A little Eating Meals: None Daily Activity - Total Score: 19 Confusion Assessment Method-ICU (CAM-ICU) Feature 1: Acute Onset or Fluctuating Course: Negative Overall CAM-ICU: Negative ICU Mobility Screen Early Mobility/Exercise Safety Screen: Proceed with mobilization - No exclusion criteria met ICU Mobility Scale: Transferring bed to chair, Education Documentation Body Mechanics, taught by Sarah Interiano OT at 08/29/2025 11:44 AM. Learner: Patient Readiness: Acceptance Method: Explanation Response: Verbalizes Understanding Precautions, taught by Sarah Interiano OT at 08/29/2025 11:44 AM. Learner: Patient Readiness: Acceptance Method: Explanation Response: Verbalizes Understanding ADL Training, taught by Sarah Interiano OT at 08/29/2025 11:44 AM. Learner: Patient Readiness: Acceptance Method: Explanation Response: Verbalizes Understanding Education Comments No comments found. Goals: Encounter Problems Encounter Problems (Active) ADLs Patient will perform UB and LB bathing with modified independent level of assistance and shower chair. Start: 08/29/25 Expected End: 09/12/25 Patient with complete lower body dressing with modified independent level of assistance donning anddoffing all LE clothes with PRN adaptive equipment while edge of bed Start: 08/29/25 Expected End: 09/12/25 Patient will complete toileting including hygiene clothing management/hygiene with modified independent level of assistance and raised toilet seat. Start: 08/29/25 Expected End: 09/12/25 MOBILITY Patient will perform Functional mobility max Household distances/Community Distances with modified independent level of assistance and least restrictive device in order to improve safety and functional mobility. Start: 08/29/25 Expected End: 09/12/25 TRANSFERS Patient will perform bed mobility modified independent level of assistance in order to improve safety and independence with mobility Start: 08/29/25 Expected End: 09/12/25 Patient will complete functional transfer to chair/toilet with least restrictive device with modified independent level of assistance. Start: 08/29/25 Expected End: 09/12/25 Treatment Completed on Evaluation Activities of Daily Living: LE Dressing LE Dressing: Yes Sock Level of Assistance: Dependent LE Dressing Where Assessed: Edge of bed LE Dressing Comments: Pt reports spouse would be able to assist w/ LB dressing Therapy/Activity: Therapeutic Activity Therapeutic Activity Performed: Yes Therapeutic Activity 1: Functional transfrers as above w/ slow progressive completion of task. Pt w/ notable OH, however w/ dealyed onset of symptoms, s/p SPT transfer. 08/29/25 at 11:50 AM SARAH INTERIANO OT Rehab Office: [phone] Cosigned by Munira Enriquez OT at 08/29/2025 12:03 PM EDT * Cecile Mcdonald MD - 08/29/2025 11:39 AM EDT Asa Thompson is a 54 y.o. female on day 3 of admission presenting with Coronary artery disease involving platinum coronary artery of platinum heart without angina pectoris. SUBJECTIVE Patient evaluated this morning and found to be resting comfortably in bed. No new symptoms. IABP was stopped. Episode of elevated blood pressure, was given hydralazine to control it. OBJECTIVE Vitals: 08/29/25 1000 08/29/25 1016 08/29/25 1040 08/29/25 1100 BP: 130/72 125/69 BP Location: Patient Position: Pulse: 85 92 85 68 Resp: 16 21 Temp: TempSrc: SpO2: 96% 95% 96% 93% Weight: Height: Urine output around 300 over last 24 hours but since today morning the patient passed around 400 mL. Results from last 7 days Lab Units 08/29/25 0327 WBC AUTO x10*3/uL 13.5* HEMOGLOBIN g/dL 9.2* HEMATOCRIT % 27.2* PLATELETS AUTO x10*3/uL 238 NEUTROS PCT AUTO % 77.5 LYMPHS PCT AUTO % 12.6 MONOS PCT AUTO % 8.1 EOS PCT AUTO % 0.3 Results from last 7 days Lab Units 08/29/25 0327 SODIUM mmol/L 131* POTASSIUM mmol/L 4.1 CHLORIDE mmol/L 93* CO2 mmol/L 22 BUN mg/dL 62* CREATININE mg/dL 6.40* CALCIUM mg/dL 8.1* PROTEIN TOTAL g/dL 5.4* BILIRUBIN TOTAL mg/dL 0.7 ALK PHOS U/L 99 ALT U/L 26 AST U/L 67* GLUCOSE mg/dL 220* Scheduled Medications Scheduled Medications[1] Physical Exam Constitutional: A&Ox3, no acute distress, alert and cooperative. Eyes: EOMI, clear sclera Respiratory/Thorax: Air entry was appreciated bilateral with no added sounds. Cardiovascular: Regular rate, regular rhythm Diastolic murmur was appreciated on the left upper sternal border, JVP not raised. Bedside POCUS did not show signs of hypervolemia. Gastrointestinal: Nondistended, soft, non-tender Extremities: There is bilateral lower pitting edema up to the ankle. Skin: Warm and dry Images US doppler kidney 1. Mildly elevated resistive indices suggestive of increased resistance to blood flow in the kidney. 2. No evidence of renal artery stenosis. 3. Aorta, IVC, renal vein normal flow velocities. 4. Increased renal cortical echogenicity which may be seen with medical renal disease. 5. Postsurgical changes from left nephrectomy. Echo 08/28/25 1. Left ventricular ejection fraction is normal [...] prior echo was a limited fellow study. ASSESSMENT & PLAN 54 years old male with multiple comorbidities including left nephrectomy and CKD stage 3b. Admittedto the Cardiac ICU due to complicated recent PCI for new onest STEMI causing distal RCA lesion dissection, stent embolization and spiral dissection. Had a IABP inserted and transferred to our hospital for CT evaluation. Nephrology team was consulted for further evaluation of new onset OMAR on top ofCKD. # Oliguric OMAR on top of CKD stage IIIb # Right solitary kidney # History of previous left nephrectomy # Moderate asymptomatic hyponatremia (Improving) - The patient creatinine baseline is around 2, on 08/28 it doubled to 5. - The patient acute change in renal function during her hospital stay have multiple possibilities: Prerenal/low perfusion post STEMI causing ATN, contrast- induced, cholesterol emboli post PCI and/or Cardiorenal. -There is concurrent hyponatremia that we believe it is mostly from her new onset OMAR. -Urine output improving this morning compared to yesterday and hopefully her OMAR will start showingresolution. Recommendations - Hold Lokelma - Bladder scan - Urine analysis and electrolyte - Input output measurement - Avoid nephrotoxic medications and contrast - We will follow-up the patient - Current GFR is below 10%, please adjust medications base on her current GFR. Cecile Mcdonald MD PGY-2, Internal Medicine Please SecureChat for any further questions This is a preliminary note, please await attending attestation for final A/P [1] amLODIPine, 10 mg, oral, Daily aspirin, 81 mg, oral, Daily atorvastatin, 80 mg, oral, Nightly cholecalciferol, 50 mcg, oral, Daily [Held by provider] gabapentin, 600 mg, oral, BID insulin glargine, 30 Units, subcutaneous, q AM insulin lispro, 0-5 Units, subcutaneous, TID AC levothyroxine, 125 mcg, oral, Daily melatonin, 3 mg, oral, Daily metoprolol tartrate, 25 mg, oral, BID perflutren lipid microspheres, 0.5-10 mL of dilution, intravenous, Once in imaging [Held by provider] pioglitazone, 15 mg, oral, Daily sodium zirconium cyclosilicate, 10 g, oral, TID ticagrelor, 90 mg, oral, BID Cosigned by Ya Aburto MD at 08/29/2025 6:33 PM EDT Associated attestation - Ya Aburto MD - 08/29/2025 6:33 PM EDT I saw and evaluated the patient. I personally obtained the trevizo and critical portions of the historyand physical exam or was physically present for trevizo and critical portions performed by the resident/fellow. I reviewed the resident/fellow's documentation and discussed the patient with the resident/lisa manley. I agree with the resident/fellow's medical decision making as documented in the note. * Mariusz Villareal, PT - 08/29/2025 11:20 AM EDT Physical Therapy Physical Therapy Evaluation and Treatment Patient Name: Asa Thompson Department: [facility] Room: A Today's Date: 08/29/2025 Time Calculation Start Time: 1016 Stop Time: 0 Time Calculation (min): 24 min Assessment/Plan PT Assessment PT Assessment Results: Decreased endurance, Decreased mobility Rehab Prognosis: Good Barriers to Discharge Home: Physical needs Physical Needs: Intermittent mobility assistance needed Evaluation/Treatment Tolerance: Patient limited by fatigue Medical Staff Made Aware: Yes Strengths: Ability to acquire knowledge, Attitude of self, Premorbid level of function, Support of Caregivers, Housing layout Barriers to Participation: Insight into problems, Comorbidities End of Session Communication: Bedside nurse Assessment Comment: Patient was able to stand, walk 150 feet without a walker, and pass a balance screen (4-item DGI). Patient does walk slow, but did not have any losses of balance. Patient would benefit from continued endurance training with PT and RN as able and appropriate. Patient may graduatefrom inpatient PT services next session. PT to follow up as able and appropriate. End of Session Patient Position: Bed, 3 rail up, Alarm off, not on at start of session IP OR SWING BED PT PLAN Inpatient or Swing Bed: Inpatient PT Plan Treatment/Interventions: Bed mobility, Transfer training, Gait training, Stair training, Balance training, Neuromuscular re-education, Neurodevelopmental intervention, Strengthening, Endurance training, Range of motion, Therapeutic exercise, Therapeutic activity, Home exercise program PT Plan: Ongoing PT PT Frequency for Current Admission: 3 times per week during this acute inpatient hospitalization PT Discharge Recommendations: Low intensity level of continued care PT Recommended Transfer Status: Contact guard, Stand by assist PT - OK to Discharge: Yes Subjective PT Visit Info: PT Received On: 08/29/25 General Visit Information: General Reason for Referral: Patient presented with increasing YE and orthopnea x3 days found to have NSTEMI now s/p JOSELITO to RCA on 08/26 c/b distal RCA lesion dissection, stent embolization, and spiral dissection. S/P IABP and transferred to [facility] for CTS eval.IABP removed 08/28 Past Medical History Relevant to Rehab: CAD (moderate RCA disease 2009), TTE 2023 showed LV thrombus (no film) discharged on doac, T2DM (last A1c 10.2%) on insulin c/b neuropathy, R cerebellar stroke(2023), JAMESON (70 to 80% left internal carotid artery stenosis, 60% right internal artery stenosis, 50% proximal left subclavian artery stenosis), CKD3b, atrophic kidney s/p nephrectomy 2021, HLD, HTN,Hypothyroidism, obesity Family/Caregiver Present: No Prior to Session Communication: Bedside nurse, Physician Patient Position Received: Up in chair, Alarm on General Comment: Patient open to work with PT Home Living: Home Living Type of Home: House Lives With: Spouse Home Adaptive Equipment: None Home Layout: One level Home Access: Level entry Home Living Comments: Spouse can help with cooking, cleaning, laundry, and grocery shopping Prior Level of Function: Prior Function Per Pt/Caregiver Report Level of [place]: Independent with ADLs and functional transfers, Independent with homemaking with ambulation ADL Assistance: Independent Homemaking Assistance: Independent Ambulatory Assistance: Independent Prior Function Comments: Patient reports being independent in home without a walker nor cane. Patient reports walking on a limited level in community Precautions: Precautions Medical Precautions: Cardiac precautions Date/Time Vitals Session Patient Position Pulse Resp SpO2 BP MAP (mmHg) 08/29/25 1000 -- -- 85 16 96 % 130/72 89 08/29/25 1016 Pre PT -- 92 -- 95 % -- -- 08/29/25 1040 Post PT -- 85 -- 96 % -- -- 08/29/25 1100 -- -- 68 21 93 % 125/69 82 Treatments: Please see Functional Assessment for specifics regarding treatment during this evaluation. Patient given education on how to safely mobilize with regard to equipment and precautions. Extra repetitions and cuing given to maximize independence. Objective Pain: Pain Assessment Pain Assessment: 0-10 0-10 (Numeric) Pain Score: 0 - No pain Cognition: Cognition Overall Cognitive Status: Within Functional Limits Arousal/Alertness: Appropriate responses to stimuli Orientation Level: Oriented X4 Following Commands: Follows one step commands with increased time Insight: Within function limits Impulsive: Within functional limits Processing Speed: Delayed General Assessments: Activity Tolerance Endurance: Decreased tolerance for upright activites Early Mobility/Exercise Safety Screen: Proceed with mobilization - No exclusion criteria met Sensation Light Touch: No apparent deficits Strength Strength Comments: Able to fully extend knees and able to lift legs off of the bed Strength Strength Comments: Able to fully extend knees and able to lift legs off of the bed Perception Inattention/Neglect: Appears intact Coordination Movements are Fluid and Coordinated: Yes Postural Control Postural Control: Within Functional Limits Static Sitting Balance Static Sitting-Balance Support: Feet supported, No upper extremity supported Static Sitting-Level of Assistance: Independent Static Standing Balance Static Standing-Balance Support: No upper extremity supported Static Standing-Level of Assistance: Contact guard Functional Assessments: Bed Mobility Bed Mobility: Yes Bed Mobility 1 Bed Mobility 1: Sitting to supine Level of Assistance 1: Contact guard Bed Mobility Comments 1: Slow, but did not need assistance Transfers Transfer: Yes Transfer 1 Transfer From 1: Sit to, Stand to Transfer to 1: Sit, Stand Technique 1: Sit to stand, Stand to sit Transfer Level of Assistance 1: Contact guard Trials/Comments 1: No physical assistanceq Transfers 2 Transfer From 2: Chair with arms to Transfer to 2: Bed Technique 2: Lateral Transfer Level of Assistance 2: Contact guard Trials/Comments 2: Slow, but steady Ambulation/Gait Training Ambulation/Gait Training Performed: Yes Ambulation/Gait Training 1 Surface 1: Level tile Device 1: No device Assistance 1: Contact guard Comments/Distance (ft) 1: 150 feet without loss of balance. / on 4-item DGI, but walks slow. Extremity/Trunk Assessments: RLE RLE : Within Functional Limits LLE LLE : Within Functional Limits Outcome Measures: [facility] Basic Mobility Turning from your back to your side while in a flat bed without using bedrails: A little Moving from lying on your back to sitting on the side of a flat bed without using bedrails: A little Moving to and from bed to chair (including a wheelchair): A little Standing up from a chair using your arms (e.g. wheelchair or bedside chair): A little To walk in hospital room: A little Climbing 3-5 steps with railing: A little Basic Mobility - Total Score: 18 FSS-ICU Ambulation: Walks >/ or equal to 150 feet with supervision Rolling: Supervision or set-up only Sitting: Supervision or set-up only Transfer [id number]: Supervision or set-up only Transfer [id number]: Supervision or set-up only Total Score: 25 Early Mobility/Exercise Safety Screen: Proceed with mobilization - No exclusion criteria met ICU Mobility Scale: Walking with assistance of 1 person [8] Care Plan Goals: Encounter Problems Encounter Problems (Active) PT Problem Patient is able to ambulate 250 feet without loss of balance requiring contact guard or less assist(Progressing) Start: 08/29/25 Expected End: 09/12/25 Patient is able to score >24/28 on the Tinetti Balance assessment to reduce the risk for fallingat home (Progressing) Start: 08/29/25 Expected End: 09/12/25 Patient is able to score>9/12 on modified Dynamic Gait Index for dynamic ambulatory balance to reduce fall risk (Met) Start: 08/29/25 Expected End: 09/12/25 Resolved: 08/29/25 Education Documentation Precautions, taught by Mariusz Villareal PT at 08/29/2025 11:18 AM. Learner: Patient Readiness: Acceptance Method: Demonstration, Explanation Response: Verbalizes Understanding, Demonstrated Understanding Comment: Goals of PT, safety with mobility Body Mechanics, taught by Mariusz Villareal PT at 08/29/2025 11:18 AM. Learner: Patient Readiness: Acceptance Method: Demonstration, Explanation Response: Verbalizes Understanding, Demonstrated Understanding Comment: Goals of PT, safety with mobility Home Exercise Program, taught by Mariusz Villareal PT at 08/29/2025 11:18 AM. Learner: Patient Readiness: Acceptance Method: Demonstration, Explanation Response: Verbalizes Understanding, Demonstrated Understanding Comment: Goals of PT, safety with mobility Mobility Training, taught by Mariusz Villareal PT at 08/29/2025 11:18 AM. Learner: Patient Readiness: Acceptance Method: Demonstration, Explanation Response: Verbalizes Understanding, Demonstrated Understanding Comment: Goals of PT, safety with mobility * Mariusz Burkett DO - 08/29/2025 11:15 AM EDT Cardiac ICU Progress Note Admit Date: 08/26/2025 Hospital Length of Stay: 3 ICU Length of Stay: 2d 13h History of Present Illness Asa Thompson is a 54 y.o. female on day 2d 13h of admission for Coronary artery disease involving platinum coronary artery of platinum heart without angina pectoris. Subjective Subjective Patient denies Fevers, chills, chest pain, palpitations, SOB, cough, wheeze, AB pain, n/v/d, hematochezia, hematuria, or dsyuria. Asa Thompson is a 54 y.o. female with CAD (moderate RCA disease 2009), ?LV thrombus noted on [id number] (was discharged on DOAC, but no fabiano history), T2DM (last A1c 10.2%) on insulin c/b neuropathy,R cerebellar stroke 2023, Carotid artery stenosis, CKD3b, atrophic kidney s/p nephrectomy 2021, HLD, HTN, Hypothyroidism, obesity who presented on 08/25 to [facility] for 3 days of YE, found to have NSTEMI, s/p JOSELITO to RCA on 08/26 c/b distal RCA lesion dissection, stent embolization, and spiral dissection. IABP was placed and patient was transferred to [facility] 08/[address] surgery evaluation. Patient not a surgical candidate, and does not need repeat PCI. IABP removed 08/28, and patient is doing well with clean groin site. Will remain on DAPT, now off of all drips. [ ] FU PT/Ot for dispo [ ] Fu and titrate BP regiment that is renal protective Objective Objective Vitals and I/O 24 Hour Vitals Temp: [35.9 C (96.6 F)-37.1 C (98.8 F)] 36.5 C (97.7 F) Heart Rate: [68-109] 68 Resp: [08-27] 21 BP: (117-181)/(54-101) 125/69 Temp (24hrs), Av.4 C (97.5 F), Min:35.9 C (96.6 F), Max:37.1 C (98.8 F) 24 hour Intake/Output Intake/Output Summary (Last 24 hours) at 08/29/2025 1115 Last data filed at 08/29/2025 0800 Gross per 24 hour Intake 964.1 ml Output 850 ml Net 114.1 ml Wt Readings from Last 5 Encounters: 08/29/25 126 kg (277 lb 1.9 oz) 08/26/25 116 kg (255 lb 11.7 oz) Vent settings Most Recent Range Past 24hrs Mode FiO2 No data recorded Rate No data recorded Vt No data recorded PEEP No data recorded Invasive Hemodynamics Most Recent Range Past 24hrs BP (Art) No data recorded MAP(Art) No data recorded RA/CVP No data recorded PA No data recorded PA(mean) No data recorded PCWP No data recorded CO No data recorded CI No data recorded Mixed Venous No data recorded SVR No data recorded PVR No data recorded Physical Exam Physical Exam General: Awake, alert, not in any acute distress. HEENT: no scleral icterus or conjunctivitis Pulmonary: CTAB, normal respiratory effort, not on supplemental oxygen Cardiac: RRR, no M/R/G, no JVD Abdomen: Soft, non distended, non tender EXT: No peripheral edema, no asymmetry noted. 2+ pulses MSK: No focal joint swelling noted. Right fem access is clean Skin: No rashes or wounds Neuro: AOx4, moving all limbs spontaneously, follows commands Psych: Coherent thought process, appropriate mood and affect Labs CMP: Recent Labs 08/29/25 0327 08/28/25 1202 08/28/250 08/28/2511808/27/2531008/26/25 2158 NA 131* 128* 131* -- 135* 131* K 4.1 4.7 5.9* -- 4.7 5.4* CL 93* 93* 98 -- 100 100 CO2 22 21 17* -- 20* 17* ANIONGAP 20 19 22* -- 20 19 BUN 62* 51* 49* -- 34* 28* CREATININE 6.40* 5.37* 5.03* -- 2.51* 2.06* EGFR 7* 9* 10* -- 22* 28* MG 2.28 2.32 -- 2.37 2.15 2.11 Recent Labs 08/29/25 0327 08/28/25 1202 08/28/25 0410 08/28/25 0119 08/27/2531008/26/25 2158 ALBUMIN 3.1* 3.5 3.3* 3.4 3.5 3.8 ALKPHOS 99 -- -- 95 93 103 ALT 26 -- -- 33 25 19 AST 67* -- -- 161* 102* 40* BILITOT 0.7 -- -- 0.5 0.4 0.5 CBC: Recent Labs 08/29/25 0327 08/28/25 0119 08/27/2531008/26/252157 WBC 13.5* 13.3* 11.3 11.4* HGB 9.2* 9.6* 10.4* 11.1* HCT 27.2* 29.0* 29.6* 33.3* PLT 238 258 303 353 MCV 82 84 81 84 COAG: Recent Labs 08/26/252157 INR 1.1 ABO: Recent Labs 08/26/252205 ABO A HEME/ENDO: Recent Labs 08/27/2531008/26/252157 FERRITIN 85 -- IRONSAT 32 -- HGBA1C -- 10.2* CARDIAC: Recent Labs 08/27/25 2153 08/27/25 1812 08/27/25 1641 08/27/25 1436 08/27/25 1238 08/27/25 1007 08/27/25 0004 08/26/258 TROPHS 75,417* 81,323* 84,650* 81,520* 67,357* 57,661* < > 9,126* BNP -- -- -- -- -- -- -- 104* < > = values in this interval not displayed. No results for input(s): LACMX , LACTATEART , SO2MV , O2CMX in the last 67647 hours. No lab exists for component: S ABG: Results from last 7 days Lab Units 08/27/25 1711 08/27/25 1436 08/27/25 1238 FIO2 % VBG: Results from last 7 days Lab Units 08/27/25 17108/27/25 1657 08/27/25 1436 POCT PH, VENOUS pH 7.34 7.34 7.32* POCT PCO2, VENOUS mm Hg 40* 42 40* Micro/ID: No results found for: URINECULTURE , BLOODCULT , CSFCULTSMEAR No lab exists for component: BNPRESU , CPKT Results from last 7 days Lab Units 08/27/25 2153 08/27/25 1812 08/27/25 1641 08/27/25 1436 08/27/25 1238 08/27/25 1007 08/27/25 0834 08/27/25 0541 08/27/25 0004 08/26/25 2158 TROPHSCMC ng/L 75,417* 81,323* 84,650* 81,520* 67,357* 57,661* 50,216* 41,750* 20,008* 9,126* No results found for: CKTOTAL , CKMB , CKMBINDEX , TROPONINI Lab Results Component Value Date HGBA1C 10.2 (H) 08/26/2025 No results found for: CHOL No results found for: HDL No results found for: LDLCALC No results found for: TRIG No components found for: CHOLHDL Cardiac Data EKG Encounter Date: 08/26/25 Electrocardiogram, 12-lead PRN ACS symptoms Result Value Ventricular Rate 98 Atrial Rate 98 MS Interval 136 QRS Duration 78 QT Interval 342 QTC Calculation(Bazett) 436 P Pigeon 57 R Pigeon 5 T Pigeon 104 QRS Count 16 Q Onset 219 P Onset 151 P Offset 199 T Offset 390 QTC Fredericia 402 Narrative Normal sinus rhythm Septal infarct (cited on or before 27-AUG-2025) Inferior infarct (cited on or before 27-AUG-2025) T wave abnormality, consider lateral ischemia ACUTE [place] / STEMI Consider right ventricular involvement in acute inferior infarct Abnormal ECG When compared with ECG of 27-AUG-2025 13:57, Serial changes of evolving Septal infarct Present Serial changes of Inferior infarct Present Echocardiogram Transthoracic Echo Complete Result Date: 08/28/2025 [facility], [address] [place] [address] and TRANSTHORACIC ECHOCARDIOGRAM REPORT Patient Name: ASA Frias Physician: [id number] Gilmar Branham MD Study Date: 08/28/2025 Ordering Provider: [id number] SPENCER KONG MRN/PID: [id number] Fellow: [id number] Arnel Ayala MD Nurse: Date of /Age: 11 1970 Health Promoter: Elvie CHENG Gender assigned at F Additional Staff: : Height: 165.10 cm Admit Date: 08/26/2025 Weight: 126.10 kg Admission Status: Inpatient - STAT BSA / BMI: 2.28 m2 / 46.26 kg/m2 Blood Pressure: 104/61 mmHg Department Location: [facility] [place] Study Type: TRANSTHORACIC ECHO (TTE) COMPLETE Diagnosis/ICD: Atherosclerotic heart disease of platinum coronary artery without angina pectoris-I25.10 Indication: C/F ADHF CPT Code: Echo Complete w Full Doppler-42285 Patient History: Pertinent History: CAD (moderate RCA disease 2009), ?LV thrombus noted onTTE 2023 (was discharged on DOAC, but no fabiano history), T2DM (last A1c 10.2%) on insulin c/b neuropathy, R cerebellar stroke 2023, Carotid artery stenosis, CKD3b, atrophic kidney s/p nephrectomy 2021,HLD, HTN, Hypothyroidism, obesity. Study Detail: The following Echo studies were performed: M-Mode,Doppler and color flow. Optison used as a contrast agent for endocardial border definition. Total contrast used for this procedure was 3 mL via IV push. Critical Event [...] aortic valve area by VTI is 1.81 cm with a peak velocity of 2.09 m/s. [...] valve regurgitation. Aortic valve area by VTI is 1.81cm2 with peak and mean gradients of 17 [...] moderately thickened. The doppler estimated peak and mean diastolic pressure gradients are 6.0 mmHg and 3 mmHg, respectively. There is evidenceof mild mitral valve stenosis. There is severe [...] cava appears normal in size, with IVC in spiratory collapse greater than 50%. In comparison to the previous echocardiogram(s): Compared withstudy dated 08/26/2025, the current study is comprehensive. [...] d: 3.17 cm (2.0-3.7cm) IVSd: 1.09 cm (0.6- 1.1cm) LVPWd: 1.00 cm (0.6-1.1cm) LVIDd: 4.54 cm [...] Area A4C: 20.3 cm2 LA Area A2C: 22.0cm2 LA Major Pigeon A4C: 5.8 cm LA Major Pigeon A2C: 5.3 cm RIGHT ATRIUM: Normal Ranges: RA Vol A4C: 44.7 ml (8.3- 19.5ml) RA Vol Index A4C: 19.6 ml/m2 RA Area A4C: 17.0 cm2 RA Major Pigeon A4C: 5.5 cm LV SYSTOLIC FUNCTION: Normal Ranges: EF-A4C View: 58 % (>=55%) EF-A2C View: 57 % EF-Biplane: 58 % EF-Visual: 58 % LV EF Reported: 58 % LV DIASTOLIC FUNCTION: Normal Ranges: MV Peak E: 1.22 m/s (0.7-1.2m/s) MV Peak A: 1.30 m/s (0.42-0.7 m/s) [...] Peak P.5 mmHg (<20mmHg) AoV Mean P.3 mmHg(1.7-11.5mmHg) LVOT Max Krupa: 1.07 m/s (<=1.1m/s) AoV VTI: 34.40 cm (18-25cm) LVOT VTI: 24.45 cm LVOT Diameter: 1.80 cm (1.8-2.4cm) AoV Area, VTI: 1.81 cm2 (2.5-5.5cm2) AoV Area,Vmax: 1.30 cm2 (2.5-4.5cm2) AoV Dimensionless Index: 0.71 RIGHT VENTRICLE: RV Basal 3.20 cm RV Mid 2.70 cm RV Major 8.3cm TRICUSPID VALVE/RVSP: Normal Ranges: Est. RA Pressure: 3 IVC Diam: 1.99 cm PULMONIC VALVE: Normal Ranges: PV Accel Time: 83 msec (>120ms) PV Max Krupa: 1.0 m/s (0.6-0.9m/s) PV Max P.7 mmHg [id number] Gilmar Branham MD Electronically signed on 08/28/2025 at 11:03:44 AM Wall Scoring Final CONCLUSIONS: 1. Left ventricular ejection fraction is normal by visual estimate at 55-60%. 2. Thereare multiple left ventricular wall motion abnormalities. 3. Entire inferior septum is abnormal. 4. On the contrast enhanced apical 4 and 3 chamber views (clips 99 and 113, respectively), there is thesuggestion of an apical filling defect compatible with LV thrombus. 5. There is normal right ventricular global systolic function. 6. Left ventricular cavity size is decreased. 7. There is left ventricular concentric remodeling. 8. The left atrium is enlarged. 9. There is moderate aortic valve cuspcalcification. 10. Aortic valve area by VTI is [...] prior echo was a limited fellow study. Transthoracic Echo (TTE) Limited Result Date: 08/27/2025 [facility], [address] [place] [address] and TRANSTHORACIC ECHOCARDIOGRAM REPORT Patient Name: ASA THOMPSON Reading Physician: [id number] Gilmar Branham MD Study Date: 08/26/2025 Ordering Provider: [id number] SPENCER KONG MRN/PID: [id number] Fellow: Nurse: Date of /Age: 11 1970 / 54 Health Promoter: Fellow Exam years Gender assigned at F Additional Staff: : BSA / BMI: m2 / kg/m2 StudyType: TRANSTHORACIC ECHO (TTE) LIMITED Diagnosis/ICD: Atherosclerotic heart disease of platinum coronary artery without angina pectoris-I25.10 Indication: CAD CPT Code: Echo Limited-15708; Color Doppler-49484; Doppler Limited-26186 Study Detail: The following Echo studies were performed: 2D, color flow and Doppler. PHYSICIAN INTERPRETATION: Left Ventricle: The left ventricle was not well visualized. The left ventricular ejection fraction could not be measured. The left ventricular cavity size wasnot assessed. Left ventricular diastolic filling was not assessed. Left Atrium: The left atrial size was not assessed. Right Ventricle: The right ventricle was not assessed. Right ventricular systolic function not assessed. Right Atrium: The right atrial size was not assessed. Aortic Valve: The aortic valve was not well visualized. There is moderate aortic valve cusp calcification. There is traceto mild aortic valve regurgitation. Mitral Valve: The mitral valve was not well visualized. There is moderate mitral annular calcification. There is trace mitral valve regurgitation. Tricuspid Valve:The tricuspid valve was not well visualized. Tricuspid regurgitation was not assessed. Pulmonic Valve: The pulmonic valve was not assessed. Pulmonic valve regurgitation was not assessed. Pericardium:Pericardial effusion was not assessed. Aorta: The aortic root was not assessed. Systemic Veins: Theinferior vena cava was not well visualized, IVC inspiratory collapse is not well visualized. In comparison to the previous echocardiogram(s): There are no prior studies on this patient for comparison purposes. CONCLUSIONS: 1. The left ventricle was not well visualized. The left ventricular ejectionfraction could not be measured. 2. There is moderate aortic valve cusp calcification. 3. There is moderate mitral annular calcification. QUANTITATIVE DATA SUMMARY: TRICUSPID VALVE/RVSP: Normal Ranges: Est. RA Pressure: 3 [id number] Gilmar Branham MD Electronically signed on 08/27/2025 at 1:52:36 PM Final CONCLUSIONS: 1. The left ventricle was not well visualized. The left ventricular ejection fraction could not be measured. 2. There is moderate aortic valve cusp calcification. 3. There is moderate mitral annular calcification. Stress Testing IMGRESULT([id number]:1:182): No results found for this or any previous visit from the past 1825 days. Cardiac Catheterization No results found for this or any previous visit from the past 1825 days. No results found for this or any previous visit from the past 3650 days. Cardiac Scoring No results found for this or any previous visit from the past 1825 days. AAA No results found for this or any previous visit from the past 1825 days. Other No results found for this or any previous visit from the past 1825 days. Imaging Imaging Transthoracic Echo Complete Result Date: 08/28/2025 CONCLUSIONS: 1. Left ventricular ejection fraction is normal by visual estimate at 55-60%. 2. Thereare multiple left ventricular wall motion abnormalities. 3. Entire inferior septum is abnormal. 4. On the contrast enhanced apical 4 and 3 chamber views (clips 99 and 113, respectively), there is thesuggestion of an apical filling defect compatible with LV thrombus. 5. There is normal right ventricular global systolic function. 6. Left ventricular cavity size is decreased. 7. There is left ventricular concentric remodeling. 8. The left atrium is enlarged. 9. There is moderate aortic valve cuspcalcification. 10. Aortic valve area by VTI is [...] prior echo was a limited fellow study. XR chest 1 view Result Date: 08/28/2025 1. No acute cardiopulmonary pathology I personally reviewed the images/study and I agree with the findings as stated by Roger Gerber DO PGY-3. This study was interpreted at [place], [place]. MACRO: None Signed by: Colin Rm 08/28/2025 7:34 AM Dictation workstation: [id number] US platinum renal with doppler Result Date: 08/28/2025 1. Mildly elevated resistive indices suggestive of [...] DO, PGY-4. This study was interpreted at [place], [place]. MACRO: None Signed by: Goran Bowie 08/28/2025 6:16 AM Dictation workstation: [id number] Inpatient Medications Continuous medications Continuous Medications[1] Scheduled medications Scheduled Medications[2] PRN medications PRN Medications[3] Assessment/Plan Assessment & Plan Asa Thompson is a 54 y.o. female with CAD (moderate RCA disease 2009), ?LV thrombus noted on [id number] (was discharged on DOAC, but no fabiano history), T2DM (last A1c 10.2%) on insulin c/b neuropathy,R cerebellar stroke 2023, Carotid artery stenosis, CKD3b, atrophic kidney s/p nephrectomy 2021, HLD, HTN, Hypothyroidism, obesity who presented on 08/25 to [facility] for 3 days of YE, found to have NSTEMI, s/p JOSELITO to RCA on 08/26 c/b distal RCA lesion dissection, stent embolization, and spiral dissection, STEMI type 4 A. IABP was placed and patient was transferred to [facility] 08/[address] surgery evaluation. Patient is off nitroprusside gtt today BP is better controlled, uptitriting nitroglycerin gtt but has been chest pain free since admission Updates (08/28): - Nephro following for oliguric OMAR - TTE - EF 55-60%, inferior septum abnormal wall motion. Suggestion of LV thrombus, decreased LV cavity. Severe MV calcification, moderate aortic valve cusp calcification - ddx calcified amorphous tumor or thrombus. Small pericardial effusion. Small pericardial effusion - IABP removed 08/28 PM, groin site clean - stopped heparin gtt - BP/CAD: started metop tartrate 25 mg BID, Amlodipine 10 mg - seen by PT/OT, diso pending recs Neurologic #Hx of Paramedian R Cerebellar Hemisphere Stroke #HX of Multiple Lacunar infarcts in basal ganglia :: Found on MRI 2023 after presenting for severe headache and double vision of L eye. Also found tohave significant Carotid Artery stenosis as discussed below. Plavix loaded. Discharged on ASA/Plavix for stroke and Apixiban 5 BID for ?LV thrombus :: Last Neuro stroke note while inpatient recommended either ASA + Eliquis or ASA + Clopidogrel butnot triple therapy Plan for Carotid Artery stenosis as below Plan for AC/AP agents as below #Agitation, revolved ICTM Cardiovascular #STEMI #RCA stent embolization #RCA distal lesion Dissection, spiral dissection #HLD #HTN Emergency #HTN :: BP on presentation to [facility] 237/102 :: TTE 2023 with preserved EF :: Initially reported to have NSTEMI, but ECG on arrival to CICU shows STEMI in inferior leads :: RCA JOSELITO c/b distal RCA lesion dissection, stent embolization, and spiral dissection Tolerated IABP Weaning trial - removed 08/28 Continue with Aspirin switching Plavix to Brilinta Continue home Atorvastatin 80 mg Started Metop tartrate 25 mg ID Started Amlodipine 10 mg Stopped Heparin gtt for IABP #? LV thrombus :: discharged 07/2024 for Apixiban 5 BID for ?LV thrombus. Outpatient cardiology doubted true LV thrombus but follow up TTE or cMRI never completed :: TTE 08/27 - EF 55-60%, inferior septum abnormal wall motion. Suggestion of LV thrombus, decreased LV cavity. Severe Mitral annular calcification, moderate aortic valve cusp calcification - ddx calcified amorphous tumor or thrombus. Small pericardial effusion. Small pericardial effusion Stopped Hep gtt Consider repeat TTE to fu possible thrombus #Moderate AV calcification #Severe Mitral annular calcification :: Noted on 08/27 TTE as above #Carotid Artery Stenosis L>R :: CT Carotid 07/2024 - There is 60% right internal carotid artery stenosis. 2. There is 70-80% leftinternal carotid artery stenosis. 3. There is 50% proximal/prevertebral left subclavian artery stenosis. ::Was recommended to follow up with Vascular as outpatient but no documented follow up Duplex US of Carotid ordered Respiratory No active issues Gastrointestinal No active issues Renal #Oliguric OMAR on CKD3b #Atrophic kidney s/p nephrectomy 2021 :: suspect related to hemodynamic insult :: Renal US 08/27 without renal artery stenosis, no hydronephrosis Follow [facility] nephro consult #Hyperkalemia :: related to above Lokelma for total 6 doses Insulin as below Hematologic # Normocytic Anemia b12, folate, iron, TIBC, ferritin wnl Infectious Disease No active issues Endocrine #T2DM (last A1c 10.2%) on insulin complicated by neuropathy :: Takes pioglitazone and 70 units of NPH Regular 70-30 mix at home Hold home pioglitazone Hold home gabapentin SSI Lantus 30 units q AM #Hypothyroidism Continue home levothyroxine #Vitamin D deficiency Continue home repletion F: likely overloaded E: K>4, P>3, Mg>2 N: NPO Diet Except: Sips with meds; Effective now Access/Tubes: Intra Aortic Balloon Pump (Active) Earliest Known Present: 08/26/25 Insertion Site: Right femoral Verification by X-ray: (c) Other (Comment) Number of days: 1 Antimicrobials: None DVT prophylaxis: heparin gtt GI prophylaxis: Not indicated Bowel Reg: MiraLAX daily and Senna BID Code status: Full Code (confirmed on admission) Emergency Contact: Kemal (spouse) - patient is unable to provide cell phone number at this time Extended Emergency Contact Information Primary Emergency Contact: CariharryArian Mobile Relation: Son Patient seen and staffed with attending physician on service. 08/29/2025 [1] [2] amLODIPine, 10 mg, oral, Daily aspirin, 81 mg, oral, Daily atorvastatin, 80 mg, oral, Nightly cholecalciferol, 50 mcg, oral, Daily [Held by provider] gabapentin, 600 mg, oral, BID insulin glargine, 30 Units, subcutaneous, q AM insulin lispro, 0-5 Units, subcutaneous, TID AC levothyroxine, 125 mcg, oral, Daily melatonin, 3 mg, oral, Daily metoprolol tartrate, 25 mg, oral, BID perflutren lipid microspheres, 0.5-10 mL of dilution, intravenous, Once in imaging [Held by provider] pioglitazone, 15 mg, oral, Daily sodium zirconium cyclosilicate, 10 g, oral, TID ticagrelor, 90 mg, oral, BID [3] PRN medications: acetaminophen, dextrose, dextrose, glucagon, glucagon, HYDROmorphone, ondansetron OR ondansetron, oxyCODONE Cosigned by Spencer Kong MD at 08/30/2025 4:58 PM EDT Associated attestation - Spencer Kong MD - 08/30/2025 4:58 PM EDT I saw and evaluated the patient. I personally obtained the trevizo and critical portions of the historyand physical exam or was physically present for trevizo and critical portions performed by the resident/fellow. I reviewed the resident/fellow's documentation and discussed the patient with the resident/lisa manley. I agree with the resident/fellow's medical decision making as documented in the note. Doing well s/p IABP removal. Ok to transfer to tele. Plan apixaban/ticagrelor on discharge for LV thrombus and PCI. * CHICHO Mari - 08/29/2025 9:12 AM EDT 08/29/25 0906 Discharge Planning Living Arrangements Spouse/significant other Support Systems Spouse/significant other;Children Assistance Needed Patient was independent with all ADLs prior to admission. Type of Residence Private residence Who is requesting discharge planning? Provider Home or Post Acute Services (TBD) Does the patient need discharge transport arranged? No Financial Resource Strain How hard is it for you to pay for the very basics like food, housing, medical care, and heating? Not very Housing Stability In the last 12 months, was there a time when you were not able to pay the mortgage or rent on time?N In the past 12 months, how many times have you moved where you were living? 0 At any time in the past 12 months, were you homeless or living in a chcf (including now)? N Transportation Needs In the past 12 months, has lack of transportation kept you from medical appointments or from getting medications? no In the past 12 months, has lack of transportation kept you from meetings, work, or from getting things needed for daily living? No - ICU TREATMENT PLAN: Patient was?transferred to [facility] from [facility] for NSTEMI and CT surgery evaluation. Nephro consulted for oliguric OMAR. ?- Payer: [employer] -Support System: , children - Planned Disposition: Pending medical outcome and rehab recommendations. - Additional Information: SDOH and Social Work Discharge Planning assessments were completed with the patient. -ADLs: Patient was independent with all ADLs prior to admission. She ambulates without assistive devices and drives herself to medical appointments. -Home Care: denies -DME: cane -HD: denies - Barriers to discharge: None at this time. SW will continue to follow. * Mariusz Villareal, PT - 08/28/2025 9:49 AM EDT Physical Therapy Therapy Communication Note Patient Name: Asa Thompson [facility] Room: A Today's Date: 08/28/2025 Discipline: Physical Therapy Missed Visit: PT Missed Visit: Yes Missed Visit Reason: Missed Visit Reason: Patient placed on medical hold Missed Time: Attempt Comment: Patient with active and ongoing bedrest. PT to follow up when able to safely mobilize. * David Cortes MD - 08/28/2025 7:57 AM EDT Cardiac ICU Progress Note Admit Date: 08/26/2025 Hospital Length of Stay: 2 ICU Length of Stay: 1d 10h History of Present Illness Asa Thompson is a 54 y.o. female on day 1d 10h of admission for Coronary artery disease involving platinum coronary artery of platinum heart without angina pectoris. Subjective Subjective CP overnight 06/15- nitroglycerin was uptitrated. No CP currently Objective Objective Vitals and I/O 24 Hour Vitals Temp: [35 C (95 F)-36.3 C (97.3 F)] 36.3 C (97.3 F) Heart Rate: [77-98] 79 Resp: [11-26] 26 BP: (98-174)/(27-97) 109/65 Temp (24hrs), Av.7 C (96.3 F), Min:35 C (95 F), Max:36.3 C (97.3 F) 24 hour Intake/Output Intake/Output Summary (Last 24 hours) at 08/28/2025 0757 Last data filed at 08/28/2025 0600 Gross per 24 hour Intake 625.27 ml Output 100 ml Net 525.27 ml Wt Readings from Last 5 Encounters: 08/28/25 126 kg (278 lb 10.6 oz) 08/26/25 116 kg (255 lb 11.7 oz) Vent settings Most Recent Range Past 24hrs Mode FiO2 No data recorded Rate No data recorded Vt No data recorded PEEP No data recorded Invasive Hemodynamics Most Recent Range Past 24hrs BP (Art) No data recorded MAP(Art) No data recorded RA/CVP No data recorded PA No data recorded PA(mean) No data recorded PCWP No data recorded CO No data recorded CI No data recorded Mixed Venous No data recorded SVR No data recorded PVR No data recorded Physical Exam Physical Exam General: Awake, alert, not in any acute distress. HEENT: no scleral icterus or conjunctivitis Pulmonary: CTAB, normal respiratory effort, not on supplemental oxygen Cardiac: RRR, no M/R/G, no JVD Abdomen: Soft, non distended, non tender EXT: No peripheral edema, no asymmetry noted. 2+ pulses MSK: No focal joint swelling noted. Right fem access is clean Skin: No rashes or wounds Neuro: AOx4, moving all limbs spontaneously, follows commands Psych: Coherent thought process, appropriate mood and affect Labs CMP: Recent Labs 08/28/25 0410 08/28/25 0119 08/27/25 0311 08/26/25 2158 NA 131* -- 135* 131* K 5.9* -- 4.7 5.4* CL 98 -- 100 100 CO2 17* -- 20* 17* ANIONGAP 22* -- 20 19 BUN 49* -- 34* 28* CREATININE 5.03* -- 2.51* 2.06* EGFR 10* -- 22* 28* MG -- 2.37 2.15 2.11 Recent Labs 08/28/25 0410 08/28/25 0119 08/27/2531008/26/252157 ALBUMIN 3.3* 3.4 3.5 3.8 ALKPHOS -- 95 93 103 ALT -- 33 25 19 AST -- 161* 102* 40* BILITOT -- 0.5 0.4 0.5 CBC: Recent Labs 08/28/25 0119 08/27/2531008/26/252157 WBC 13.3* 11.3 11.4* HGB 9.6* 10.4* 11.1* HCT 29.0* 29.6* 33.3* PLT 258 303 353 MCV 84 81 84 COAG: Recent Labs 08/26/252157 INR 1.1 ABO: Recent Labs 08/26/252205 ABO A HEME/ENDO: Recent Labs 08/27/2531008/26/252157 FERRITIN 85 -- IRONSAT 32 -- HGBA1C -- 10.2* CARDIAC: Recent Labs 08/27/25 2153 08/27/25 1812 08/27/25 1641 08/27/25 1436 08/27/25 1238 08/27/25 1007 08/27/25 0004 08/26/252157 TROPHS 75,417* 81,323* 84,650* 81,520* 67,357* 57,661* < > 9,126* BNP -- -- -- -- -- -- -- 104* < > = values in this interval not displayed. No results for input(s): LACMX , LACTATEART , SO2MV , O2CMX in the last 05544 hours. No lab exists for component: S ABG: Results from last 7 days Lab Units 08/27/25 1711 08/27/25 1436 08/27/25 1238 FIO2 % VBG: Results from last 7 days Lab Units 08/27/25 17108/27/25 1657 08/27/25 1436 POCT PH, VENOUS pH 7.34 7.34 7.32* POCT PCO2, VENOUS mm Hg 40* 42 40* Micro/ID: No results found for: URINECULTURE , BLOODCULT , CSFCULTSMEAR No lab exists for component: BNPRESU , CPKT Results from last 7 days Lab Units 08/27/25 2153 08/27/25 1812 08/27/25 1641 08/27/25 1436 08/27/25 1238 08/27/25 1007 08/27/25 0834 08/27/25 0541 08/27/25 0004 08/26/25 2158 [facility] ng/L 75,417* 81,323* 84,650* 81,520* 67,357* 57,661* 50,216* 41,750* 20,008* 9,126* No results found for: CKTOTAL , CKMB , CKMBINDEX , TROPONINI Lab Results Component Value Date HGBA1C 10.2 (H) 08/26/2025 No results found for: CHOL No results found for: HDL No results found for: LDLCALC No results found for: TRIG No components found for: CHOLHDL Cardiac Data EKG Encounter Date: 08/26/25 ECG 12 lead Result Value Ventricular Rate 85 Atrial Rate 85 MS Interval 138 QRS Duration 82 QT Interval 374 QTC Calculation(Bazett) 445 P Pigeon 22 R Pigeon -13 T Pigeon 94 QRS Count 14 Q Onset 222 P Onset 153 P Offset 196 T Offset 409 QTC Fredericia 420 Narrative Normal sinus rhythm Inferior infarct (cited on or before 27-AUG-2025) Anterior infarct (cited on or before 27-AUG-2025) ACUTE [place] / STEMI Consider right ventricular involvement in acute inferior infarct Abnormal ECG When compared with ECG of 27-AUG-2025 04:08, Serial changes of evolving Anterior infarct Present Serial changes of Inferior infarct Present Echocardiogram Transthoracic Echo (TTE) Limited Result Date: 08/27/2025 [facility], [address] [place] [address] and TRANSTHORACIC ECHOCARDIOGRAM REPORT Patient Name: ASA Frias Physician: [id number] Gilmar Branham MD Study Date: 08/26/2025 Ordering Provider: [id number] SPENCER KONG MRN/PID: [id number] Fellow: Nurse: Date of /Age: 11 1970 / 54 Health Promoter: Fellow Exam years Gender assigned at F Additional Staff: : BSA / BMI: m2 / kg/m2 StudyType: TRANSTHORACIC ECHO (TTE) LIMITED Diagnosis/ICD: Atherosclerotic heart disease of platinum coronary artery without angina pectoris-I25.10 Indication: CAD CPT Code: Echo Limited-31404; Color Doppler-74252; Doppler Limited-95192 Study Detail: The following Echo studies were performed: 2D, color flow and Doppler. PHYSICIAN INTERPRETATION: Left Ventricle: The left ventricle was not well visualized. The left ventricular ejection fraction could not be measured. The left ventricular cavity size wasnot assessed. Left ventricular diastolic filling was not assessed. Left Atrium: The left atrial size was not assessed. Right Ventricle: The right ventricle was not assessed. Right ventricular systolic function not assessed. Right Atrium: The right atrial size was not assessed. Aortic Valve: The aortic valve was not well visualized. There is moderate aortic valve cusp calcification. There is traceto mild aortic valve regurgitation. Mitral Valve: The mitral valve was not well visualized. There is moderate mitral annular calcification. There is trace mitral valve regurgitation. Tricuspid Valve:The tricuspid valve was not well visualized. Tricuspid regurgitation was not assessed. Pulmonic Valve: The pulmonic valve was not assessed. Pulmonic valve regurgitation was not assessed. Pericardium:Pericardial effusion was not assessed. Aorta: The aortic root was not assessed. Systemic Veins: Theinferior vena cava was not well visualized, IVC inspiratory collapse is not well visualized. In comparison to the previous echocardiogram(s): There are no prior studies on this patient for comparison purposes. CONCLUSIONS: 1. The left ventricle was not well visualized. The left ventricular ejectionfraction could not be measured. 2. There is moderate aortic valve cusp calcification. 3. There is moderate mitral annular calcification. QUANTITATIVE DATA SUMMARY: TRICUSPID VALVE/RVSP: Normal Ranges: Est. RA Pressure: 3 [id number] Gilmar Branham MD Electronically signed on 08/27/2025 at 1:52:36 PM Final CONCLUSIONS: 1. The left ventricle was not well visualized. The left ventricular ejection fraction could not be measured. 2. There is moderate aortic valve cusp calcification. 3. There is moderate mitral annular calcification. Stress Testing IMGRESULT([id number]:182): No results found for this or any previous visit from the past 1824 days. Cardiac Catheterization No results found for this or any previous visit from the past 1825 days. No results found for this or any previous visit from the past 3650 days. Cardiac Scoring No results found for this or any previous visit from the past 1825 days. AAA No results found for this or any previous visit from the past 1825 days. Other No results found for this or any previous visit from the past 1825 days. Imaging Imaging XR chest 1 view Result Date: 08/28/2025 1. No acute cardiopulmonary pathology I personally reviewed the images/study and I agree with the findings as stated by Roger Gerber DO PGY-3. This study was interpreted at [place], [place]. MACRO: None Signed by: Colin Rm 08/28/2025 7:34 AM Dictation workstation: [id number] US platinum renal with doppler Result Date: 08/28/2025 1. Mildly elevated resistive indices suggestive of [...] DO, PGY-4. This study was interpreted at [place], [place]. MACRO: None Signed by: Goran Bowie 08/28/2025 6:16 AM Dictation workstation: [id number] XR chest 1 view Result Date: 08/27/2025 1. The intra-aortic balloon pump (IABP) radiopaque tip projects at the level of T5, consistent withpositioning within the descending thoracic aorta. Recommend slight advancement to position the tip just distal to the origin of the left subclavian artery for optimal function. 2. Findings suggestiveof pulmonary edema with small right pleural effusion. I personally reviewed the images/study and I agree with the findings as stated by Hannah Franklin DO, PGY-4. This study was interpreted at [place], [place]. MACRO: None Signed by: Colin Rm 08/27/2025 4:32 PM Dictation workstation: [id number] Transthoracic Echo (TTE) Limited Result Date: 08/27/2025 CONCLUSIONS: 1. The left ventricle was not well visualized. The left ventricular ejection fraction could not be measured. 2. There is moderate aortic valve cusp calcification. 3. There is moderate mitral annular calcification. Inpatient Medications Continuous medications Continuous Medications[1] Scheduled medications Scheduled Medications[2] PRN medications PRN Medications[3] Assessment/Plan Assessment & Plan Asa Thompson is a 54 y.o. female with CAD (moderate RCA disease 2009), ?LV thrombus noted on [id number] (was discharged on DOAC, but no fabiano history), T2DM (last A1c 10.2%) on insulin c/b neuropathy,R cerebellar stroke 2023, Carotid artery stenosis, CKD3b, atrophic kidney s/p nephrectomy 2021, HLD, HTN, Hypothyroidism, obesity who presented on 08/25 to [facility] for 3 days of YE, found to have NSTEMI, s/p JOSELITO to RCA on 08/26 c/b distal RCA lesion dissection, stent embolization, and spiral dissection, STEMI type 4 A. IABP was placed and patient was transferred to [facility] 08/[address] surgery evaluation. Patient is off nitroprusside gtt today BP is better controlled, uptitriting nitroglycerin gtt but has been chest pain free since admission Updates (08/28): - Nephro consulted for oliguric OMAR - TTE - EF 55-60%, inferior septum abnormal wall motion. Suggestion of LV thrombus, decreased LV cavity. Severe MV calcification, moderate aortic valve cusp calcification - ddx calcified amorphous tumor or thrombus. Small pericardial effusion. Small pericardial effusion - IABP weaning today - Continue heparin gtt - Hyperkalemia improved with insulin, started on lokelal Neurologic #Hx of Paramedian R Cerebellar Hemisphere Stroke #HX of Multiple Lacunar infarcts in basal ganglia :: Found on MRI 2023 after presenting for severe headache and double vision of L eye. Also found tohave significant Carotid Artery stenosis as discussed below. Plavix loaded. Discharged on ASA/Plavix for stroke and Apixiban 5 BID for ?LV thrombus :: Last Neuro stroke note while inpatient recommended either ASA + Eliquis or ASA + Clopidogrel butnot triple therapy Plan for Carotid Artery stenosis as below Plan for AC/AP agents as below #Agitation Improving Will remove IABP today with hopes that it will assist in reducing agitation Cardiovascular #STEMI #RCA stent embolization #RCA distal lesion Dissection, spiral dissection #HLD #HTN Emergency #HTN :: BP on presentation to [facility] 237/102 :: TTE 2023 with preserved EF :: Initially reported to have NSTEMI, but ECG on arrival to CICU shows STEMI in inferior leads :: RCA JOSELITO c/b distal RCA lesion dissection, stent embolization, and spiral dissection Tolerated IABP Weaning trial - will aim to remove today Continue with Aspirin Continue with Plavix, can consider switching Plavix to Brilinta Continue home Atorvastatin 80 mg Continue home hydralazine 25 mg Nitroglycerin gtt titrated from 5 to 20 Heparin gtt for IABP and for LV thrombus as below #? LV thrombus :: discharged 07/2024 for Apixiban 5 BID for ?LV thrombus. Outpatient cardiology doubted true LV thrombus but follow up TTE or cMRI never completed :: TTE 08/27 - EF 55-60%, inferior septum abnormal wall motion. Suggestion of LV thrombus, decreased LV cavity. Severe Mitral annular calcification, moderate aortic valve cusp calcification - ddx calcified amorphous tumor or thrombus. Small pericardial effusion. Small pericardial effusion Continue heparin gtt (even after IABP is removed) #Moderate AV calcification #Severe Mitral annular calcification :: Noted on 08/27 TTE as above #Carotid Artery Stenosis L>R :: CT Carotid 07/2024 - There is 60% right internal carotid artery stenosis. 2. There is 70-80% leftinternal carotid artery stenosis. 3. There is 50% proximal/prevertebral left subclavian artery stenosis. ::Was recommended to follow up with Vascular as outpatient but no documented follow up Duplex US of Carotid Respiratory No active issues Gastrointestinal No active issues Renal #Oliguric OMAR on CKD3b #Atrophic kidney s/p nephrectomy 2021 :: suspect related to hemodynamic insult :: Renal US 08/27 without renal artery stenosis, no hydronephrosis Follow [facility] nephro consult #Hyperkalemia :: related to above Lokelal for total 6 doses Insulin as below Hematologic # Normocytic Anemia b12, folate, iron, TIBC, ferritin wnl Infectious Disease No active issues Endocrine #T2DM (last A1c 10.2%) on insulin complicated by neuropathy :: Takes pioglitazone and 70 units of NPH Regular 70-30 mix at home Hold home pioglitazone Hold home gabapentin SSI Lantus 30 units q AM #Hypothyroidism Continue home levothyroxine #Vitamin D deficiency Continue home repletion F: likely overloaded E: K>4, P>3, Mg>2 N: NPO Diet Except: Sips with meds; Effective now Access/Tubes: Intra Aortic Balloon Pump (Active) Earliest Known Present: 08/26/25 Insertion Site: Right femoral Verification by X-ray: (c) Other (Comment) Number of days: 1 Antimicrobials: None DVT prophylaxis: heparin gtt GI prophylaxis: Not indicated Bowel Reg: MiraLAX daily and Senna BID Code status: Full Code (confirmed on admission) Emergency Contact: Kemal (spouse) - patient is unable to provide cell phone number at this time Extended Emergency Contact Information Primary Emergency Contact: Arian Thompson Mobile Relation: Son Patient seen and staffed with attending physician on service. David Cortes MD Internal Medicine PGY-3 08/28/2025 [1] dexmedeTOMIDine, 0.1-1.5 mcg/kg/hr, Last Rate: 0.2 mcg/kg/hr (08/28/25 0600) heparin, 0-4,000 Units/hr, Last Rate: 1,200 Units/hr (08/28/25 0600) nitroglycerin, 5-200 mcg/min, Last Rate: 20 mcg/min (08/28/25 0635) [2] aspirin, 81 mg, oral, Daily atorvastatin, 80 mg, oral, Nightly cholecalciferol, 50 mcg, oral, Daily [Held by provider] gabapentin, 600 mg, oral, BID [Held by provider] hydrALAZINE, 25 mg, oral, TID insulin glargine, 30 Units, subcutaneous, q AM insulin lispro, 0-5 Units, subcutaneous, q4h levothyroxine, 125 mcg, oral, Daily melatonin, 3 mg, oral, Daily [Held by provider] pioglitazone, 15 mg, oral, Daily sodium zirconium cyclosilicate, 10 g, oral, TID ticagrelor, 90 mg, oral, BID [3] PRN medications: acetaminophen, dextrose, dextrose, glucagon, glucagon, heparin, HYDROmorphone,ondansetron OR ondansetron, oxyCODONE Cosigned by Spencer Kong MD at 08/30/2025 7:18 AM EDT Associated attestation - Spencer Kong MD - 08/30/2025 7:18 AM EDT I saw and evaluated the patient. I personally obtained the trevizo and critical portions of the historyand physical exam or was physically present for trevizo and critical portions performed by the resident/fellow. I reviewed the resident/fellow's documentation and discussed the patient with the resident/f sindhu. I agree with the resident/fellow's medical decision making as documented in the note. Titrate oral BP meds and antianginals. Weaning IABP, plan to remove later today. Aggressive lipid management with statin, ezetimibe given severe atherosclerotic disease (coronary, carotid). Echo suggests LV thrombus, recommend apixaban/ticagrelor at discharge, stop aspirin. Some complex MAC noted, no indication for intervention at this time, should be monitored outpatient. * CHICHO Mari - 08/27/2025 2:35 PM EDT Social Work Progress Note - ICU TREATMENT PLAN: Patient was?transferred to [facility] from [facility] for NSTEMI and CT surgery evaluation. ?- Payer: [employer] -Support System: Son is listed in the chart. - Planned Disposition: Pending medical outcome and rehab recommendations. - Additional Information: SW to complete assessment when medically appropriate. - Barriers to discharge: None at this time. SW will continue to follow. CHICHO MARI * Choco Coburn [facility] - 08/27/2025 1:46 PM EDT Images from the original note were not included. Pharmacy Medication History Review Asa Thompson is a 54 y.o. female admitted for Coronary artery disease involving platinum coronary artery of platinum heart without angina pectoris. Pharmacy reviewed the patient's [id number] medications and allergies for accuracy. The list below reflects the updated BRAKE ASSEMBLER list. Prior to Admission Medications Prescriptions Last Dose Informant Actos 15 mg tablet Not Taking Spouse/Significant Other, Child, Other Sig: Take 1 tablet (15 mg) by mouth once daily. Patient not taking: Reported on 08/27/2025 Patient just put on medication but has not started yet aspirin 81 mg EC tablet Spouse/Significant Other, Child, Other Sig: Take 1 tablet (81 mg) by mouth once daily. atorvastatin (Lipitor) 80 mg tablet Spouse/Significant Other, Child, Other Sig: Take 1 tablet (80 mg) by mouth once daily. cholecalciferol (Vitamin D-3) 25 mcg (1,000 units) capsule Spouse/Significant Other, Child, Other Sig: Take 2 capsules (50 mcg) by mouth once daily. clopidogrel (Plavix) 75 mg tablet Spouse/Significant Other, Child, Other Sig: Take 1 tablet (75 mg) by mouth once daily. gabapentin (Neurontin) 600 mg tablet Spouse/Significant Other, Child, Other Sig: Take 2 tablets (1,200 mg) by mouth 2 times a day. hydrALAZINE (Apresoline) 25 mg tablet Spouse/Significant Other, Child, Other Sig: Take 1 tablet (25 mg) by mouth 3 times a day. insulin NPH and regular human (HumuLIN 70-30, NovoLIN 70-30) 100 unit/mL (70-30) injection Spouse/Significant Other, Child, Other Sig: Inject under the skin. Insulin Nph And Regular Human (Humulin 70/30 U-100 Insulin) 100 unit/mL(70-30) suspension Active 80 UNIT SUBQ every morning May 02, 2024 12:00am 80 AM AND 50 PM Complies with drug therapy levothyroxine (Tirosint) 125 mcg capsule Spouse/Significant Other, Child, Other Sig: Take 1 capsule (125 mcg) by mouth once every 24 hours. In morning on empty stomach Facility-Administered Medications: None The list below reflects the updated allergy list. Please review each documented allergy for additional clarification and justification. Allergies Reviewed by Mikey Antonio RN on 08/27/2025 Severity Reactions Comments Ciprofloxacin Not Specified GI Upset Morphine Not Specified Hives Penicillamine Not Specified Hives Patient accepts M2B at discharge. Pharmacy has been updated to [facility]. Sources used to complete the med history include: [facility] Pharmacy dispense history Patient Interview Unable to provide any details Spouse Shaq Moderate historian, Child Betzy Moderate historian Chart Review Care Everywhere Office visit 08/25/25 Dr. Hussain Ramos Below are additional concerns with the patient's BRAKE ASSEMBLER list. Dr. Ramos was called to verify dose of levothyroxine. Jigna Hillman verified dose of 125 mcg daily .Patient was inadvertently taking both the 75 mcg and [address] Ramos advised to cutdown to 125 mcg daily. SEE OARRS BELOW Medications ADDED: All medications Medications CHANGED: None Medications REMOVED: None Choco Coburn [facility]. Transitions of Care Pharmacist Please reach out via Secure Chat for questions, or if no response call [employer] or [employer] * Munira Enriquez OT - 08/27/2025 9:07 AM EDT Occupational Therapy Communication Note Patient Name: Asa Thompson Today's Date: 08/27/2025 Room: [address] [place] [address] Discipline: Occupational Therapy Missed Visit Reason: (904: pt new admission with femoral IABP, uptrending troponins, ongoing chestpain requiring nitroglycerin, and pending CTS evaluation. OT evaluation held) 08/27/25 at 9:07 AM Munira Enriquez OT Rehab Office: [phone] * Cesar Abraham MD - 08/27/2025 8:18 AM EDT Cardiac ICU Progress Note Admit Date: 08/26/2025 Hospital Length of Stay: 1 ICU Length of Stay: 11h History of Present Illness Asa Thompson is a 54 y.o. female on day 11h of admission for Coronary artery disease involving platinum coronary artery of platinum heart without angina pectoris. Subjective Subjective NAEON. This morning patient was vomiting and received Zofran. Denied any chest pain, SOB, palpitation, abdominal pain, or any other symptoms. Asking if she can eat. Objective Objective Vitals and I/O 24 Hour Vitals Temp: [35 C (95 F)-36.8 C (98.2 F)] 35 C (95 F) Heart Rate: [84-110] 84 Resp: [16-23] 17 BP: (110-186)/(53-102) 125/83 Temp (24hrs), Av C (96.8 F), Min:35 C (95 F), Max:36.8 C (98.2 F) 24 hour Intake/Output Intake/Output Summary (Last 24 hours) at 08/27/2025 0819 Last data filed at 08/27/2025 0600 Gross per 24 hour Intake 135.76 ml Output 120 ml Net 15.76 ml Wt Readings from Last 5 Encounters: 08/27/25 113 kg (250 lb) 08/26/25 116 kg (255 lb 11.7 oz) Vent settings Most Recent Range Past 24hrs Mode FiO2 No data recorded Rate No data recorded Vt No data recorded PEEP No data recorded Invasive Hemodynamics Most Recent Range Past 24hrs BP (Art) No data recorded MAP(Art) No data recorded RA/CVP No data recorded PA No data recorded PA(mean) No data recorded PCWP No data recorded CO No data recorded CI No data recorded Mixed Venous No data recorded SVR No data recorded PVR No data recorded Physical Exam Physical Exam General: Awake, alert, not in any acute distress. HEENT: no scleral icterus or conjunctivitis Pulmonary: CTAB, normal respiratory effort, not on supplemental oxygen Cardiac: RRR, no M/R/G, no JVD Abdomen: Soft, non distended, non tender EXT: No peripheral edema, no asymmetry noted MSK: No focal joint swelling noted. Right fem access is clean Skin: No rashes or wounds Neuro: AOx4, moving all limbs spontaneously, follows commands Psych: Coherent thought process, appropriate mood and affect Labs CMP: Recent Labs 08/27/2531008/26/252157 NA 135* 131* K 4.7 5.4* CL 100 100 CO2 20* 17* ANIONGAP 20 19 BUN 34* 28* CREATININE 2.51* 2.06* EGFR 22* 28* MG 2.15 2.11 Recent Labs 08/27/2531008/26/252157 ALBUMIN 3.5 3.8 ALKPHOS 93 103 ALT 25 19 AST 102* 40* BILITOT 0.4 0.5 CBC: Recent Labs 08/27/2531008/26/25 2158 WBC 11.3 11.4* HGB 10.4* 11.1* HCT 29.6* 33.3* PLT 303 353 MCV 81 84 COAG: Recent Labs 08/26/252157 INR 1.1 ABO: Recent Labs 08/26/252205 ABO A HEME/ENDO: Recent Labs 08/27/2531008/26/252157 FERRITIN 85 -- IRONSAT 32 -- HGBA1C -- 10.2* CARDIAC: Recent Labs 08/27/2554008/27/25308/26/252157 TROPHS 41,750* 20,008* 9,126* BNP -- -- 104* No results for input(s): LACMX , LACTATEART , SO2MV , O2CMX in the last 41237 hours. No lab exists for component: S ABG: Results from last 7 days Lab Units 08/27/2531908/27/25308/26/252157 FIO2 % VBG: Results from last 7 days Lab Units 08/27/2531908/27/25308/26/252157 POCT PH, VENOUS pH 7.34 7.33 7.34 POCT PCO2, VENOUS mm Hg 39* 40* 38* Micro/ID: No results found for: URINECULTURE , BLOODCULT , CSFCULTSMEAR No lab exists for component: BNPRESU , CPKT Results from last 7 days Lab Units 08/27/2554008/27/25308/26/252157 TROPHSCMC ng/L 41,750* 20,008* 9,126* No results found for: CKTOTAL , CKMB , CKMBINDEX , TROPONINI Lab Results Component Value Date HGBA1C 10.2 (H) 08/26/2025 No results found for: CHOL No results found for: HDL No results found for: LDLCALC No results found for: TRIG No components found for: CHOLHDL Cardiac Data EKG No results found for this or any previous visit (from the past 4464 hours). Echocardiogram No echocardiogram results found for the past 12 months Stress Testing IMESULT([id number]): No results found for this or any previous visit from the past 1824 days. Cardiac Catheterization No results found for this or any previous visit from the past 1825 days. No results found for this or any previous visit from the past 3650 days. Cardiac Scoring No results found for this or any previous visit from the past 1825 days. AAA No results found for this or any previous visit from the past 1825 days. Other No results found for this or any previous visit from the past 1825 days. Imaging Imaging XR chest 1 view Result Date: 08/27/2025 1. The intra-aortic balloon pump (IABP) radiopaque tip projects at the level of T5, consistent withpositioning within the descending thoracic aorta. Recommend slight advancement to position the tip just distal to the origin of the left subclavian artery for optimal function. 2. Findings suggestiveof pulmonary edema with small right pleural effusion. I personally reviewed the images/study and I agree with the findings as stated by Hannah Franklin DO, PGY-4. This study was interpreted at [facility], [place], [place]. MACRO: None Dictation workstation: [id number] Cardiology, Vascular, and Other Imaging No other imaging results found for the past 2 days Inpatient Medications Continuous medications Continuous Medications[1] Scheduled medications Scheduled Medications[2] PRN medications PRN Medications[3] Assessment/Plan Assessment & Plan Asa Thompson is a 54 y.o. female with CAD (moderate RCA disease 2009), ?LV thrombus noted on [id number] (was discharged on DOAC, but no fabiano history), T2DM (last A1c 10.2%) on insulin c/b neuropathy,R cerebellar stroke 2023, Carotid artery stenosis, CKD3b, atrophic kidney s/p nephrectomy 2021, HLD, HTN, Hypothyroidism, obesity who presented on 08/25 to [facility] for 3 days of YE, found to have NSTEMI, s/p JOSELITO to RCA on 08/26 c/b distal RCA lesion dissection, stent embolization, and spiral dissection, STEMI type 4 A. IABP was placed and patient was transferred to [facility] 08/[address] surgery evaluation. Patient is off nitroprusside gtt today BP is better controlled, uptitriting nitroglycerin gtt but has been chest pain free since admission Updates (08/27): -Increase nitroglycerin gtt from 5 to 20 as long BP tolerate -Off nipride gtt this AM MAP (79) -CTS and interventional cards are on board, pending final plan -Can consider switching Plavix to Brilinta -Complete TTE, pending -q2 hs Trop check -Daily EKG -Lactate 4.1->3>2.8 pending repeat Neurologic #Hx of Paramedian R Cerebellar Hemisphere Stroke #HX of Multiple Lacunar infarcts in basal ganglia :: Found on MRI 2023 after presenting for severe headache and double vision of L eye. Also found tohave significant Carotid Artery stenosis as discussed below. Plavix loaded. Discharged on ASA/Plavix for stroke and Apixiban 5 BID for ?LV thrombus :: Last Neuro stroke note while inpatient recommended either ASA + Eliquis or ASA + Clopidogrel butnot triple therapy Plan for Carotid Artery stenosis as below Plan for AC/AP agents as below #Agitation Precedex gtt for RASS 0 to -1 Cardiovascular #STEMI #RCA stent embolization #RCA distal lesion Dissection, spiral dissection #HLD #HTN Emergency #HTN :: BP on presentation to [facility] 237/102 :: TTE 2023 with preserved EF :: Initially reported to have NSTEMI, but ECG on arrival to CICU shows STEMI in inferior leads :: RCA JOSELITO c/b distal RCA lesion dissection, stent embolization, and spiral dissection IABP 1:1 Continue with Aspirin Continue with Plavix, can consider switching Plavix to Brilinta Continue home Atorvastatin 80 mg Continue home hydralazine 25 mg Nitroglycerin gtt titrated from 5 to 20 Heparin gtt for IABP Complete TTE, pending IABP 1:1 #? LV thrombus :: discharged 07/2024 for Apixiban 5 BID for ?LV thrombus. Outpatient cardiology doubted true LV thrombus but follow up TTE or cMRI never completed Repeat TTE to assess if LV thrombus is present Already on heparin gtt #Carotid Artery Stenosis L>R :: CT Carotid 07/2024 - There is 60% right internal carotid artery stenosis. 2. There is 70-80% leftinternal carotid artery stenosis. 3. There is 50% proximal/prevertebral left subclavian artery stenosis. ::Was recommended to follow up with Vascular as outpatient but no documented follow up Consider repeat duplex Carotid and Vascular Surgery consult Respiratory No active issues Gastrointestinal No active issues Renal #OMAR on CKD3b #Atrophic kidney s/p nephrectomy 2021 :: suspect related to hemodynamic insult Follow UOP Urine electrolytes, pending Renal US ordered - would only do if can be performed in unit Hematologic # Normocytic Anemia Follow anemia workup - b12, folate, iron, TIBC, ferritin Infectious Disease No active issues Endocrine #T2DM (last A1c 10.2%) on insulin complicated by neuropathy :: Takes pioglitazone and 70 units of NPH Regular 70-30 mix at home Hold home pioglitazone Hold home gabapentin SSI Lantus 30 units q AM #Hypothyroidism Continue home levothyroxine #Vitamin D deficiency Continue home repletion F: likely overloaded E: K>4, P>3, Mg>2 N: NPO Diet Except: Sips with meds; Effective now Access/Tubes: Intra Aortic Balloon Pump (Active) Earliest Known Present: 08/26/25 Insertion Site: Right femoral Verification by X-ray: (c) Other (Comment) Number of days: 1 Antimicrobials: None DVT prophylaxis: heparin gtt GI prophylaxis: Not indicated Bowel Reg: MiraLAX daily and Senna BID Code status: Full Code (confirmed on admission) Emergency Contact: Kemal (spouse) - patient is unable to provide cell phone number at this time [ ] please obtain in AM Extended Emergency Contact Information Primary Emergency Contact: Arian Thompson Mobile Relation: Son Patient seen and staffed with attending physician on service. Cesar Abraham MD Internal Medicine PGY-3 08/27/2025 [1] dexmedeTOMIDine, 0.1-1.5 mcg/kg/hr, Last Rate: 0.2 mcg/kg/hr (08/27/25 0600) heparin, 0-4,000 Units/hr, Last Rate: 1,200 Units/hr (08/27/25 06) nitroglycerin, 5-200 mcg/min, Last Rate: 5 mcg/min (08/27/25 06) nitroprusside, 0.25-5 mcg/kg/min, Last Rate: 0.25 mcg/kg/min (08/27/25 0728) [2] aspirin, 81 mg, oral, Daily atorvastatin, 80 mg, oral, Nightly cholecalciferol, 50 mcg, oral, Daily clopidogrel, 75 mg, oral, Daily [Held by provider] gabapentin, 600 mg, oral, BID hydrALAZINE, 25 mg, oral, TID insulin glargine, 30 Units, subcutaneous, q AM insulin lispro, 0-15 Units, subcutaneous, TID AC levothyroxine, 125 mcg, oral, Daily melatonin, 3 mg, oral, Daily [Held by provider] pioglitazone, 15 mg, oral, Daily [3] PRN medications: acetaminophen, dextrose, dextrose, glucagon, glucagon, heparin, HYDROmorphone,ondansetron OR ondansetron, oxyCODONE Cosigned by Spencer Kong MD at 08/30/2025 7:04 AM EDT Associated attestation - Spencer Kong MD - 08/30/2025 7:04 AM EDT I saw and evaluated the patient. I personally obtained the trevizo and critical portions of the historyand physical exam or was physically present for trevizo and critical portions performed by the resident/fellow. I reviewed the resident/fellow's documentation and discussed the patient with the resident/lisa manley. I agree with the resident/fellow's medical decision making as documented in the note. Some nausea/vomiting, chest pain free. Stable on IABP. Plan to wean IABP, no plan for PCI or CABG at this time. Will plan likely optimization of stents with shockwave as an outpatient after coronary dissection heals. DAPT, statin. Add BB for BP control. Will add ARB if creatinine improves to baseline. documented in this [facility] Work Phone: [phone] 415-809610-29-2025 Hospital Discharge instructions* Discharge Instructions* Sylvie Schulz APRN-COMMODITIES REQUIREMENTS ANALYST - 09/03/2025 12:06 PM EDT Images from the original note were not included. Hospital Summary: Ms. Thompson, you had a heart attack and a stent placed to your right coronary artery. This was complicated by the stent emobolization and spiral dissection. A balloon bump was then placed to stabilize the artery and you were transferred to [facility] for further management and evaluation. The previous events led to significant injury to your kidneys, which have since recovered. An echocardiogram showed that your heart function has remained normal, but there is still a clot in your heart. We have restarted your Eliquis, but it is absolutely critical that you take your Brilinta and Eliquis everydaywithout missing any doses. We also adjusted your medications to better control your blood pressure. And prescribed an antibiotic to treat a UTI. Follow-up Appointments: - A cardiology follow up appointment has been scheduled for you. A nephrology appointment has been requested, you will be contacted to schedule or when an appointment is available. - Please bring a photo ID, any copay, insurance card, and a list of your current medications or discharge instructions. Please arrive 15 minutes prior to your appointment. Medications: - Your medications have changed. Please take the medications listed on these instructions as prescribed until you are seen at a follow up appointment. It was a pleasure to have met and cared for you! * Attachments The following attachments cannot be sent through Care Everywhere. * Coronary Stenting Discharge Instructions (Citizen Of [place]) documented in this [facility] Work Phone: [phone] Miscellaneous Notes* Care Plan - Wen Pérez RN - 09/03/2025 8:29 AM EDT The clinical goals for the shift include patient will remain hemodynamically stable through end of shift Problem: Pain - Adult Goal: Verbalizes/displays adequate comfort level or baseline comfort level Outcome: Progressing Problem: Safety - Adult Goal: Free from fall injury Outcome: Progressing Problem: Discharge Planning Goal: Discharge to home or other facility with appropriate resources Outcome: Progressing Problem: Chronic Conditions and Co-morbidities Goal: Patient's chronic conditions and co-morbidity symptoms are monitored and maintained or improved Outcome: Progressing Problem: Nutrition Goal: Nutrient intake appropriate for maintaining nutritional needs Outcome: Progressing Problem: Skin Goal: Decreased wound size/increased tissue granulation at next dressing change Outcome: Progressing Goal: Participates in plan/prevention/treatment measures Outcome: Progressing Goal: Prevent/manage excess moisture Outcome: Progressing Goal: Prevent/minimize sheer/friction injuries Outcome: Progressing Goal: Promote/optimize nutrition Outcome: Progressing Goal: Promote skin healing Outcome: Progressing Problem: Acute Kidney Failure Goal: Electrolytes/labs return to normal range Outcome: Progressing Goal: No signs of infection Outcome: Progressing Goal: No signs of neurosensory, musculoskeletal, cardiac changes Outcome: Progressing Goal: Stable weight and I&O Outcome: Progressing Problem: Pain Goal: Takes deep breaths with improved pain control throughout the shift Outcome: Progressing Goal: Turns in bed with improved pain control throughout the shift Outcome: Progressing Goal: Walks with improved pain control throughout the shift Outcome: Progressing Goal: Performs ADL's with improved pain control throughout shift Outcome: Progressing Goal: Participates in PT with improved pain control throughout the shift Outcome: Progressing Goal: Free from opioid side effects throughout the shift Outcome: Progressing Goal: Free from acute confusion related to pain meds throughout the shift Outcome: Progressing Problem: Fall/Injury Goal: Not fall by end of shift Outcome: Progressing Goal: Be free from injury by end of the shift Outcome: Progressing Goal: Verbalize understanding of personal risk factors for fall in the hospital Outcome: Progressing Goal: Verbalize understanding of risk factor reduction measures to prevent injury from fall in the home Outcome: Progressing Goal: Use assistive devices by end of the shift Outcome: Progressing Goal: Pace activities to prevent fatigue by end of the shift Outcome: Progressing * Care Plan - Rush Whitley RN - 09/03/2025 6:21 AM EDT The patient's goals for the shift include The clinical goals for the shift include patient will remain HDS throughout shift Problem: Pain - Adult Goal: Verbalizes/displays adequate comfort level or baseline comfort level Outcome: Progressing Problem: Safety - Adult Goal: Free from fall injury Outcome: Progressing Problem: Discharge Planning Goal: Discharge to home or other facility with appropriate resources Outcome: Progressing * Care Plan - Wen Pérez RN - 09/02/2025 9:00 AM EDT The clinical goals for the shift include patient will remain hemodynamically stable through end of shift Problem: Pain - Adult Goal: Verbalizes/displays adequate comfort level or baseline comfort level Outcome: Progressing Problem: Safety - Adult Goal: Free from fall injury Outcome: Progressing Problem: Discharge Planning Goal: Discharge to home or other facility with appropriate resources Outcome: Progressing Problem: Chronic Conditions and Co-morbidities Goal: Patient's chronic conditions and co-morbidity symptoms are monitored and maintained or improved Outcome: Progressing Problem: Nutrition Goal: Nutrient intake appropriate for maintaining nutritional needs Outcome: Progressing Problem: Skin Goal: Decreased wound size/increased tissue granulation at next dressing change Outcome: Progressing Goal: Participates in plan/prevention/treatment measures Outcome: Progressing Goal: Prevent/manage excess moisture Outcome: Progressing Goal: Prevent/minimize sheer/friction injuries Outcome: Progressing Goal: Promote/optimize nutrition Outcome: Progressing Goal: Promote skin healing Outcome: Progressing Problem: Acute Kidney Failure Goal: Electrolytes/labs return to normal range Outcome: Progressing Goal: No signs of infection Outcome: Progressing Goal: No signs of neurosensory, musculoskeletal, cardiac changes Outcome: Progressing Goal: Stable weight and I&O Outcome: Progressing Problem: Pain Goal: Takes deep breaths with improved pain control throughout the shift Outcome: Progressing Goal: Turns in bed with improved pain control throughout the shift Outcome: Progressing Goal: Walks with improved pain control throughout the shift Outcome: Progressing Goal: Performs ADL's with improved pain control throughout shift Outcome: Progressing Goal: Participates in PT with improved pain control throughout the shift Outcome: Progressing Goal: Free from opioid side effects throughout the shift Outcome: Progressing Goal: Free from acute confusion related to pain meds throughout the shift Outcome: Progressing Problem: Fall/Injury Goal: Not fall by end of shift Outcome: Progressing Goal: Be free from injury by end of the shift Outcome: Progressing Goal: Verbalize understanding of personal risk factors for fall in the hospital Outcome: Progressing Goal: Verbalize understanding of risk factor reduction measures to prevent injury from fall in the home Outcome: Progressing Goal: Use assistive devices by end of the shift Outcome: Progressing Goal: Pace activities to prevent fatigue by end of the shift Outcome: Progressing * Care Plan - Ny Dowling RN - 09/01/2025 4:33 PM EDT The patient's goals for the shift include The clinical goals for the shift include pt will remain free from falls throughout shift Over the shift, the patient did not make progress toward the following goals. Barriers to progression include disease process. Recommendations to address these barriers include assist with ADL's and monitor hemodynamic status Problem: Pain - Adult Goal: Verbalizes/displays adequate comfort level or baseline comfort level Outcome: Progressing Flowsheets (Taken 09/01/2025 163) Verbalizes/displays adequate comfort level or baseline comfort level: Implement non-pharmacological measures as appropriate and evaluate response Assess pain using appropriate pain scale Administer analgesics based on type and severity of pain and evaluate response Problem: Safety - Adult Goal: Free from fall injury Outcome: Progressing Problem: Discharge Planning Goal: Discharge to home or other facility with appropriate resources Outcome: Progressing Problem: Chronic Conditions and Co-morbidities Goal: Patient's chronic conditions and co-morbidity symptoms are monitored and maintained or improved Outcome: Progressing Problem: Nutrition Goal: Nutrient intake appropriate for maintaining nutritional needs Outcome: Progressing Problem: Skin Goal: Decreased wound size/increased tissue granulation at next dressing change Outcome: Progressing Flowsheets (Taken 09/01/2025 163) Decreased wound size/increased tissue granulation at next dressing change: Promote sleep for wound healing Goal: Participates in plan/prevention/treatment measures Outcome: Progressing Flowsheets (Taken 09/01/2025 163) Participates in plan/prevention/treatment measures: Discuss with provider PT/OT consult Goal: Prevent/manage excess moisture Outcome: Progressing Flowsheets (Taken 09/01/2025 163) Prevent/manage excess moisture: Cleanse incontinence/protect with barrier cream Goal: Prevent/minimize sheer/friction injuries Outcome: Progressing Flowsheets (Taken 08/29/2025 1326 by Leny Sanders RN) Prevent/minimize sheer/friction injuries: Use pull sheet HOB 30 degrees or less Increase activity/out of bed for meals Goal: Promote/optimize nutrition Outcome: Progressing Flowsheets (Taken 09/01/2025 1633) Promote/optimize nutrition: Assist with feeding Goal: Promote skin healing Outcome: Progressing Flowsheets (Taken 09/01/2025 163) Promote skin healing: Assess skin/pad under line(s)/device(s) Problem: Acute Kidney Failure Goal: Electrolytes/labs return to normal range Outcome: Progressing Goal: No signs of infection Outcome: Progressing Goal: No signs of neurosensory, musculoskeletal, cardiac changes Outcome: Progressing Goal: Stable weight and I&O Outcome: Progressing . * Care Plan - Milagro Lee RN - 08/31/2025 1:51 PM EDT The patient's goals for the shift include patient will remain HDS throughout shift The clinical goals for the shift include pt will remain free from falls throughout shift * Care Plan - Meghan Melton RN - 08/30/2025 6:30 PM EDT The clinical goals for the shift include Patient will have increased urine production * Assessment & Plan Note - Fawn Zendejas MD - 08/30/2025 4:47 PM EDTAssociated Problem(s): Coronary artery disease involving platinum coronary artery of platinum heart without angina pectoris OMAR * Care Plan - Cinthia Foreman RN - 08/30/2025 2:35 AM EDT Problem: Pain - Adult Goal: Verbalizes/displays adequate comfort level or baseline comfort level Outcome: Progressing Problem: Safety - Adult Goal: Free from fall injury Outcome: Progressing Problem: Discharge Planning Goal: Discharge to home or other facility with appropriate resources Outcome: Progressing Problem: Chronic Conditions and Co-morbidities Goal: Patient's chronic conditions and co-morbidity symptoms are monitored and maintained or improved Outcome: Progressing Problem: Nutrition Goal: Nutrient intake appropriate for maintaining nutritional needs Outcome: Progressing Problem: Skin Goal: Decreased wound size/increased tissue granulation at next dressing change Outcome: Progressing Goal: Participates in plan/prevention/treatment measures Outcome: Progressing Goal: Prevent/manage excess moisture Outcome: Progressing Goal: Prevent/minimize sheer/friction injuries Outcome: Progressing Goal: Promote/optimize nutrition Outcome: Progressing Goal: Promote skin healing Outcome: Progressing Problem: Acute Kidney Failure Goal: Electrolytes/labs return to normal range Outcome: Progressing Goal: No signs of infection Outcome: Progressing Goal: No signs of neurosensory, musculoskeletal, cardiac changes Outcome: Progressing Goal: Stable weight and I&O Outcome: Progressing Problem: Acute Kidney Failure Goal: Tolerates renal replacement therapy Outcome: Met Goal: Wean vasopressor/achieve hemodynamic stability Outcome: Met The patient's goals for the shift include The clinical goals for the shift include Patient will have increased urine production * Significant Event - Bishnu Thompson APRN-COMMODITIES REQUIREMENTS ANALYST, DNP - 08/29/2025 4:09 PM EDT Asa Thompson is a 54 y.o. female with CAD (moderate RCA disease 2009), ?LV thrombus noted on [id number] (was discharged on DOAC, but no fabiano history), T2DM (last A1c 10.2%) on insulin c/b neuropathy,R cerebellar stroke 2023, Carotid artery stenosis, CKD3b, atrophic kidney s/p nephrectomy 2021, HLD, HTN, Hypothyroidism, obesity who presented on 08/25 to [facility] for 3 days of YE, found to have NSTEMI, s/p JOSELITO to RCA on 08/26 c/b distal RCA lesion dissection, stent embolization, and spiral dissection, STEMI type 4 A. IABP was placed and patient was transferred to [facility] 08/[address] surgery evaluation. Patient is off nitroprusside gtt today BP is better controlled, uptitriting nitroglycerin gtt but has been chest pain free since admission. Nephro following for oliguric OMAR. TTE - EF 55-60%, inferior septum abnormal wall motion. Suggestion of LV thrombus, decreased LV cavity. Severe MV calcification, moderate aortic valve cusp calcification - ddx calcified amorp hous tumor or thrombus. Small pericardial effusion. Small pericardial effusion . IABP removed 08/28PM, groin site clean. BP/CAD: started metop tartrate 25 mg BID, Amlodipine 10 mg. Patient has been transferred from CICU to HVI floor service. Spoke with patient and her . Patient had a fall after arrival where she states she was sitting on the bed and trying to scoot to the edge, and she slipped out of the bed and onto her knees. She was assisted by staff back into bed and is currently reporting no pain. Assessed and there is no bruising on exam. Denies dizziness, chest pain, sob. Is eager to be discharged home. Orders reviewed and updated for the floor. To be staffed in the AM Bishnu Thompson DNP, [facility] Cardiology * Care Plan - Leny Sanders RN - 08/29/2025 1:24 PM EDT The patient's goals for the shift include The clinical goals for the shift include Patients's SBP <160 Problem: Pain - Adult Goal: Verbalizes/displays adequate comfort level or baseline comfort level Outcome: Progressing Problem: Safety - Adult Goal: Free from fall injury Outcome: Progressing Problem: Nutrition Goal: Nutrient intake appropriate for maintaining nutritional needs Outcome: Progressing Problem: Skin Goal: Prevent/manage excess moisture Outcome: Progressing Problem: Skin Goal: Prevent/minimize sheer/friction injuries Outcome: Progressing Problem: Skin Goal: Promote/optimize nutrition Outcome: Progressing * Care Plan - Dolores Gregg RN - 08/27/2025 4:10 PM EDT Problem: Pain - Adult Goal: Verbalizes/displays adequate comfort level or baseline comfort level 08/27/2025 1610 by Dolores Gregg RN Outcome: Progressing 08/27/2025 1609 by Dolores Gregg RN Outcome: Progressing Problem: Safety - Adult Goal: Free from fall injury 08/27/2025 1610 by Dolores Gregg RN Outcome: Progressing 08/27/2025 1609 by Dolores Gregg RN Outcome: Progressing Problem: Discharge Planning Goal: Discharge to home or other facility with appropriate resources 08/27/2025 1610 by Dolores Gregg RN Outcome: Progressing 08/27/2025 1609 by Dolores Gregg RN Outcome: Progressing Problem: Chronic Conditions and Co-morbidities Goal: Patient's chronic conditions and co-morbidity symptoms are monitored and maintained or improved 08/27/2025 1610 by Dolores Gregg RN Outcome: Progressing 08/27/2025 1609 by Dolores Gregg RN Outcome: Progressing Problem: Nutrition Goal: Nutrient intake appropriate for maintaining nutritional needs 08/27/2025 1610 by Dolores Gregg RN Outcome: Progressing 08/27/2025 1609 by Dolores Gregg RN Outcome: Progressing Problem: Skin Goal: Decreased wound size/increased tissue granulation at next dressing change 08/27/2025 1610 by Dolores Gregg RN Outcome: Progressing 08/27/2025 1609 by Dolores Gregg RN Outcome: Progressing Goal: Participates in plan/prevention/treatment measures 08/27/2025 1610 by Dolores Gregg RN Outcome: Progressing 08/27/2025 1609 by Dolores Gregg RN Outcome: Progressing Goal: Prevent/manage excess moisture 08/27/2025 1610 by Dolores Gregg RN Outcome: Progressing 08/27/2025 1609 by Dolores Gregg RN Outcome: Progressing Goal: Prevent/minimize sheer/friction injuries 08/27/2025 1610 by Dolores Gregg RN Outcome: Progressing 08/27/2025 1609 by Dolores Gregg RN Outcome: Progressing Goal: Promote/optimize nutrition 08/27/2025 1610 by Dolores Gregg RN Outcome: Progressing 08/27/2025 1609 by Dolores Gregg RN Outcome: Progressing Goal: Promote skin healing 08/27/2025 1610 by Dolores Gregg RN Outcome: Progressing 08/27/2025 1609 by Dolores Gregg RN Outcome: Progressing The clinical goals for the shift include Patients's SBP <160 * Hospital Course - Dayanna Rendon, CHITO-COMMODITIES REQUIREMENTS ANALYST - 08/27/2025 1:53 PM EDT Asa Thompson is a 54 y.o. female with CAD (moderate RCA disease 2009), ?LV thrombus noted on [id number] (was discharged on DOAC, but no fill history), T2DM (last A1c 10.2%) on insulin c/b neuropathy, R cerebellar stroke 2023, Carotid artery stenosis, CKD3b, atrophic kidney s/p nephrectomy 2021, HLD, HTN, Hypothyroidism, obesity who presented 08/25 to [facility] for 3 days of YE, found to have NSTEMI, s/p JOSELITO to RCA on 08/26 c/b distal RCA lesion dissection, stent embolization, and spiral dissection, STEMI type 4 A. IABP was placed and patient was transferred [facility] evaluation. Initially treated HTN with nitroprusside gtt . Started on nitroglycerin gtt but had been chest painfree since admission. Nephro following for oliguric OMAR. TTE - EF 55-60%, inferior septum abnormal wall motion. Suggestion of LV thrombus, decreased LV cavity. Severe MV calcification, moderate aortic valve cusp calcification - ddx calcified amorphous tumor or thrombus. Small pericardial effusion. IABP removed the evening 08/28. For BP/CAD: started metop tartrate 25 mg BID, Amlodipine [address] Surgery felt since the RCA lesion was isolated, CABG was not recommended. Any further treatment would likely need to be done via interventional team if indicated. Transferred from CICU to HVI floor service. 08/29. Had a fall on arrival to floor while sitting on bed trying to scoot to the edge. No associated trauma. * Significant Event - Manuel De León MD - 08/26/2025 11:24 PM EDT Overnight echo prelim: poor quality/difficult windows with pt body habitus and pain. Within that limitation, EF appears probably preserved but should evaluate with definity for LVEF and wall motion. There is calcification of the aortic and mitral valves. The mitral valve mean gradient is 8 mmHg at 110 bpm. RV systolic function appears normal. The IVC is normal size but <50% collapsible suggesting RA pressure ~8. Estimated RVSP 27 mmHg but may be underestimated. documented in this [facility] Work Phone: [phone] 513-238210-28-2025 Consult note* Kareen Nguyen, BHARATN, LD - 09/02/2025 10:58 AM EDTAssociated Order(s): IP CONSULT TO NUTRITION SERVICES Nutrition Consult Note Asa Thompson is a 54 y.o. female patient admitted on 08/26/2025 for Coronary artery disease involving platinum coronary artery of platinum heart without angina pectoris [I25.10]. Asa is referred to Nutrition Services for Diet education, Provider consult order. Recent Events: Coronary artery disease involving platinum coronary artery of platinum heart without angina pectoris. Nutrition Assessment Food and Nutrient History: Energy Intake: Fair 50-75 % Pain affecting nutrition status: N/A Food and Nutrient History: Nutrition consult per physician order for diet education completed per remote RD assessment. Patient states that her appetite is poor and has been so throughout this admission. She will order a meal and states she just picks at this food because once it arrives it does not sound good anymore. Breakfast this morning was eggs, moreno, banana and cereal. Reviewed with patient the importance of moderating intake and focusing on lean protein, vegetables, fruits and fiber with meals to enhance her recovery process and for overall wellness/health. She denies any nause/vomiting or pain. Anthropometrics: Weight: 117 kg (257 lb 11.5 oz) Height: 1.651 m (5' 5 ) BMI: Body mass index is 42.89 kg/m . Desirable Body Weight: 56.8 kg, % of Desirable BW: Adjusted Body Weight: Anthropometric History: Wt Readings from Last 6 Encounters: 08/30/25 117 kg (257 lb 11.5 oz) 08/26/25 116 kg (255 lb 11.7 oz) Weight Change: Weight History / % Weight Change: No weight change per chart review or patient report Significant Weight Loss: No Nutrition Focused Physical Findings: Assessment Status: Defer all Defer Reason: Unable to complete due to remote RD assessment Estimated Energy Needs: Total Energy Needs 1755 kCal/24 hrs Method for Estimating Needs: 15kcals/kg CBW Estimated Protein Needs: Total Protein Needs 85 g/24 hrs Method for Estimating Needs: 1.5grams/kg IBW Estimated Fluid Needs: Total Fluid Needs 1500mL/day mL/24 hrs Method for Estimating Needs: Fluid restriction per physician order Nutrition Meds/I&O/Pertinent Lab Results Current Medications[1] Intake/Output Summary (Last 24 hours) at 09/02/2025 1108 Last data filed at 09/01/2025 2200 Gross per 24 hour Intake 660 ml Output 200 ml Net 460 ml Last BM Date: 09/01/25 Stool Appearance: Loose Current Nutrition/Diet: Dietary Orders (From admission, onward) Start Ordered 09/01/25 1649 Adult diet Regular; 1500 mL fluid Diet effective now Question Answer Comment Diet type Regular Dietary fluid restriction / 24h: 1500 mL fluid 09/01/25 1649 Recent Labs 09/02/25 0749 WBC 9.9 HGB 9.5* HCT 29.5* MCV 86 PLT 442 GLUCOSE 224* CALCIUM 8.5* NA 133* K 4.1 BUN 30* CREATININE 2.03* EGFR 29* PHOS 2.7 MG 2.43* Nutrition Diagnosis Malnutrition Diagnosis - No Nutrition Diagnosis - No nutrition diagnosis at this time Nutrition Interventions/Recommendations Nutrition Prescription: Nutrition prescription for oral nutrition Individualized Nutrition Prescription Provided for: Recommend regular diet as ordered by physician with protein supplements PRN Meals & Snacks: General healthful diet Goal: Intake greater than 75% of meals TID Education Documentation No documentation found. Nutrition Monitoring and Evaluation Food & Nutrient Related History Monitoring: Intake/Amount of Food: - Consumes at least 75% or more of meals/snacks/supplements Nutritional Goal Status: New goal(s) identified Follow Up: Time spent this visit was 60 minutes. KAREEN NGUYEN RDN, LD [1] Current Facility-Administered Medications Medication Dose Route Frequency Provider Last Rate Last Admin acetaminophen (Tylenol) tablet 650 mg 650 mg oral q6h PRN Bishnu Thompson, [employer] ANALYST-COMMODITIES REQUIREMENTS ANALYST, DNP 650 mg at 08/28/252025 amLODIPine (Norvasc) tablet 10 mg 10 mg oral Daily JOANN Isidro DNP 10 mg at 09/02/25 08 [Held by provider] aspirin chewable tablet 81 mg 81 mg oral Daily JOANN Isidro DNP81 mg at 08/30/25 0942 atorvastatin (Lipitor) tablet 80 mg 80 mg oral Nightly THERESA Isidro CNP, DNP 80 mg at 09/01/252116 cholecalciferol (Vitamin D-3) tablet 50 mcg 50 mcg oral Daily JOANN Isidro DNP 50 mcg at 09/02/25824 dextrose 50 % injection 12.5 g 12.5 g intravenous q15 min PRN JOANN Isidro DNP dextrose 50 % injection 25 g 25 g intravenous q15 min PRN JOANN Isidro DNP ezetimibe (Zetia) tablet 10 mg 10 mg oral Nightly Spencer Kong MD 10 mg at 09/01/252117 [Held by provider] gabapentin (Neurontin) capsule 600 mg 600 mg oral BID JOANN Isidro DNP glucagon (Glucagen) injection 1 mg 1 mg intramuscular q15 min PRN JOANN Isidro DNP glucagon (Glucagen) injection 1 mg 1 mg intramuscular q15 min PRN JOANN Isidro DNP heparin 25,000 Units in sodium chloride 0.9% 250 mL (100 Units/mL) infusion (compounded) 12 Units/kg/hr intravenous Continuous JOANN Ennis 16 mL/hr at 09/02/25 0324 13.675 Units/kg/hr at 09/02/25 0324 heparin bolus from bag 2,000-4,000 Units 2,000-4,000 Units intravenous q4h PRN JOANN Weathers 2,000 Units at 08/31/25 2349 insulin glargine (Lantus) injection 30 Units 30 Units subcutaneous q AM JOANN Isidro DNP 30 Units at 09/02/25 0825 insulin lispro injection 0-5 Units 0-5 Units subcutaneous TID AC JOANN Isidro DNP 2 Units at 09/02/25 0825 levothyroxine (Synthroid, Levoxyl) tablet 125 mcg 125 mcg oral Daily JOANN Isidro DNP 125 mcg at 09/02/25 0729 melatonin tablet 3 mg 3 mg oral Daily JOANN Isidro DNP 3 mg at 09/01/25 2118 [Held by provider] metoprolol tartrate (Lopressor) tablet 25 mg 25 mg oral BID JOANN Isidro DNP 25 mg at 08/30/25 0942 ondansetron (Zofran) tablet 4 mg 4 mg oral q8h PRN JOANN Isidro DNP Or ondansetron (Zofran) injection 4 mg 4 mg intravenous q8h PRN JOANN Isidro DNP 4 mgat 08/29/25 1137 oxyCODONE (Roxicodone) immediate release tablet 5 mg 5 mg oral q6h PRN JOANN Isidro DNP 5 mg at 09/01/25 1540 perflutren lipid microspheres (Definity) injection 0.5-10 mL of dilution 0.5-10 mL of dilution intravenous Once in imaging JOANN Isidro DNP [Held by provider] pioglitazone (Actos) tablet 15 mg 15 mg oral Daily JOANN Isidro DNP sulfamethoxazole-trimethoprim (Bactrim DS) 800-160 mg per tablet 1 tablet 1 tablet oral q12h [facility] JOANN Alvarez 1 tablet at 09/02/25 0825 ticagrelor (Brilinta) tablet 90 mg 90 mg oral BID JOANN Isidro DNP 90 mg at 09/02/25 0825 warfarin (Coumadin) tablet 5 mg 5 mg oral Daily JOANN Alvarez 5 mg at 09/01/25 1723 * Cecile Mcdonald MD - 08/28/2025 3:06 PM EDT Reason For Consult OMAR History Of Present Illness Asa Thompson is a 54 y.o. female with a PMHx CAD (moderate RCA disease 2009), TTE 2023 showed LVthrombus (no film) discharged on doac, T2DM (last A1c 10.2%) on insulin c/b neuropathy, R cerebellar stroke (2023), JAMESON (70 to 80% left internal carotid artery stenosis, 60% right internal artery stenosis, 50% proximal left subclavian artery stenosis), CKD3b, atrophic kidney s/p nephrectomy 2021, HLD, HTN, Hypothyroidism, obesity. She presented with increasing YE and orthopnea x3 days found to have NSTEMI now s/p JOSELITO to RCA on 08/26 c/b distal RCA lesion dissection, stent embolization, and spiral dissection. S/P IABP and transferred to [facility] for CTS eval. the patient was referred to nephrology service due to rising creatinine. [facility] She mentioned that she take her home medications regularly. She does not use NSAIDs. No family history of kidney disease. She had a history of left kidney removal due to being at provide and multiple stones with poor function in 2021. Past Medical History She has no past medical history on file. Surgical History She has no past surgical history on file. Social History She reports that she has never smoked. She has never used smokeless tobacco. She reports that she does not drink alcohol. No history on file for drug use. Family History Family History[1] Allergies Ciprofloxacin, Morphine, and Penicillamine Review of Systems 12 point system review is negative except what mentioned above. I&O 24HR Intake/Output Summary (Last 24 hours) at 08/28/2025 1508 Last data filed at 08/28/2025 1300 Gross per 24 hour Intake 1080.01 ml Output -- Net 1080.01 ml Vitals 24HR Heart Rate: [71-98] Temp: [35.9 C (96.6 F)-36.4 C (97.5 F)] Resp: [10-26] BP: (99-155)/(27-97) Weight: [126 kg (278 lb 10.6 oz)] SpO2: [93 %-100 %] Physical Exam Constitutional: A&Ox3, no acute distress, alert and cooperative. On IABP 1:1 Eyes: EOMI, clear sclera Respiratory/Thorax: Air entry was appreciated bilateral with no added sounds. Cardiovascular: Regular rate, regular rhythm, JVP not raised Gastrointestinal: Nondistended, soft, non-tender Extremities: No cyanosis or edema. Peripheral pulses intact Skin: Warm and dry Latest Reference Range & Units 08/28/25 11:24 08/28/25 12:02 GLUCOSE 74 - 99 mg/dL 285 (H) SODIUM 136 - 145 mmol/L 128 (L) POTASSIUM 3.5 - 5.3 mmol/L 4.7 CHLORIDE 98 - 107 mmol/L 93 (L) Bicarbonate 21 - 32 mmol/L 21 Anion Gap 10 - 20 mmol/L 19 Blood Urea Nitrogen 6 - 23 mg/dL 51 (H) Creatinine 0.50 - 1.05 mg/dL 5.37 (H) EGFR >60 mL/min/1.73m*2 9 (L) Calcium 8.6 - 10.6 mg/dL 8.4 (L) PHOSPHORUS 2.5 - 4.9 mg/dL 7.4 (H) Albumin 3.4 - 5.0 g/dL 3.5 MAGNESIUM 1.60 - 2.40 mg/dL 2.32 POCT Glucose 74 - 99 mg/dL 222 (H) (H): Data is abnormally high (L): Data is abnormally low US doppler kidney 1. Mildly elevated resistive indices suggestive of increased resistance to blood flow in the kidney. 2. No evidence of renal artery stenosis. 3. Aorta, IVC, renal vein normal flow velocities. 4. Increased renal cortical echogenicity which may be seen with medical renal disease. 5. Postsurgical changes from left nephrectomy. Echo 08/28/25 1. Left ventricular ejection fraction is normal [...] prior echo was a limited fellow study. Assessment: 54 years old male with multiple comorbidities including left nephrectomy and CKD stage 3b. Admittedto the Cardiac ICU due to complicated recent PCI for new onest STEMI causing distal RCA lesion dissection, stent embolization and spiral dissection. Had a IABP inserted and transferred to our hospital for CT evaluation. Nephrology team was consulted for further evaluation of new onset OMAR on top ofCKD. # Oliguric OMAR on top of CKD stage IIIb # Right solitary kidney # History of previous left nephrectomy # Moderate asymptomatic hyponatremia - The patient creatinine baseline is around 2, on 08/28 it doubled to 5. - The patient acute change in renal function during her hospital stay have multiple possibilities: Prerenal/low perfusion post STEMI causing ATN, contrast- induced, cholesterol emboli post PCI and/or Cardiorenal. -There is concurrent hyponatremia that we believe it is mostly from her new onset OMAR. Recommendations - Start Lokelma 10 g every 8 hours for 48 hours - Bladder scan - Urine analysis and electrolyte - Ultrasound kidney - Bedside POCUS. If fluid overloaded, than can give IV Bumex. - Input output measurement - Avoid nephrotoxic medications and contrast - We will follow-up the patient - Current GFR is below 10%, please adjust medications base on her current GFR. Cecile Mcdonald MD PGY-2 IM [1] No family history on file. Cosigned by Ya Aburto MD at 08/29/2025 11:11 PM EDT Associated attestation - Ya Aburto MD - 08/29/2025 11:11 PM EDT I saw and evaluated the patient. I personally obtained the trevizo and critical portions of the historyand physical exam or was physically present for trevizo and critical portions performed by the resident/fellow. I reviewed the resident/fellow's documentation and discussed the patient with the resident/f sindhu. I agree with the resident/fellow's medical decision making as documented in the note. Oliguric OMAR on CKD (08/2024 s. Cr 1.58), and solitary R kidney, in the setting of NSTEMI requiringdrug eluting stent to RCA. C/B stent embolization and spiral dissection. OMAR multifactorial, including normotensive ischemic OMAR, contrast associated OMAR, hypotension, cardiorenal syndrome. No emergent indication fro dialysis. Will follow. * Cesilia Porras PA-C - 08/27/2025 12:03 PM EDTAssociated Order(s): Inpatient consult to Cardiothoracic Surgery Inpatient consult to Cardiothoracic Surgery Consult performed by: Stacey Barton APRN-COMMODITIES REQUIREMENTS ANALYST Consult ordered by: Spencer Kong MD Reason for Consult: NSTEMI s/p JOSELITO to RCA on 08/26 c/b distal RCA lesion dissection, stent embolization, and spiral dissection s/p IABP CARDIAC SURGERY CONSULT NOTE HISTORY OF PRESENT ILLNESS Asa Thompson is a 54 y.o. female with a PMHx CAD (moderate RCA disease 2009), TTE 2023 showed LVthrombus (no film) discharged on doac, T2DM (last A1c 10.2%) on insulin c/b neuropathy, R cerebellar stroke (2023), JAMESON (70 to 80% left internal carotid artery stenosis, 60% right internal artery stenosis, 50% proximal left subclavian artery stenosis), CKD3b, atrophic kidney s/p nephrectomy 2021, HLD, HTN, Hypothyroidism, obesity. She presented with increasing YE and orthopnea x3 days found to have NSTEMI now s/p JOSELITO to RCA on 08/26 c/b distal RCA lesion dissection, stent embolization, and spiral dissection. S/P IABP and transferred to [facility] for CTS eval. BP on presentation 237/102 with subsequent new retrosternal chest pressure which improved with labetalol. Currently on nitro gtt for CP. Cardiac surgery is consulted for CABG evaluation. Cardiac/Pertinent Imaging LHC @ OSH (08/26): Formal cath report not available, but images on PACs. As per transfer center notes, LAD looked good. Patient has calcified arteries. No evidence of rupture or erosion in cath. Thedistal legion dissected. Stent placed. The stent embolized. Able to get a balloon in the embolized stent. Pt has spiral dissection. Pt tolerated everything well. Balloon pump placed TTE @ OSH (08/25): poor quality/difficult windows with pt body habitus and pain. Within that limitation, EF appears probably preserved but should evaluate with definity for LVEF and wall motion. There is calcification of the aortic and mitral valves. The mitral valve mean gradient is 8 mmHg at 110 bpm. RV systolic function appears normal. The IVC is normal size but <50% collapsible suggesting RA pressure ~8. Estimated RVSP 27 mmHg but may be underestimated. Subjective Medical History[1] Surgical History[2] Social History[3] Family History[4] Allergies: Ciprofloxacin, Morphine, and Penicillamine Prior to Admission medications Not on File Review of Systems Constitutional: Positive for activity change. Decreased activity tolerance over the last couple of days HENT: Negative. Eyes: Negative. Respiratory: Negative. Cardiovascular: Negative for palpitations and leg swelling. Currently denies CP while on IABP 1:1 assist and nitro gtt Gastrointestinal: Negative for abdominal distention and abdominal pain. Endocrine: Negative. Genitourinary: Negative. Musculoskeletal: Negative. Skin: Negative. Allergic/Immunologic: Negative. Neurological: Negative for syncope, light-headedness and numbness. Hematological: Negative. Psychiatric/Behavioral: Negative. Patient apologizing to medical staff, saying she has someone else taking care of her - referring togod Objective BP 128/82 Pulse 80 Temp 35 C (95 F) (Temporal) Resp 18 Ht 1.651 m (5' 5 ) Wt 113 kg (250 lb) SpO2 96% BMI 41.60 kg/m 0-10 (Numeric) Pain Score: 0 - No pain Vitals: 08/27/25 0610 Weight: 113 kg (250 lb) Intake/Output Summary (Last 24 hours) at 08/27/2025 1212 Last data filed at 08/27/2025 1000 Gross per 24 hour Intake 241.47 ml Output 120 ml Net 121.47 ml Physical Exam Physical Exam Constitutional: Appearance: She is obese. HENT: Mouth/Throat: Mouth: Mucous membranes are dry. Cardiovascular: Rate and Rhythm: Normal rate and regular rhythm. Pulses: Normal pulses. Comments: IABP in place Pulmonary: Effort: Pulmonary effort is normal. Breath sounds: Normal breath sounds. Musculoskeletal: Cervical back: Normal range of motion. Right lower leg: No edema. Left lower leg: No edema. Skin: General: Skin is warm and dry. Capillary Refill: Capillary refill takes less than 2 seconds. Neurological: General: No focal deficit present. Mental Status: She is alert. Medications Scheduled medications Scheduled Medications[5]Continuous medications Continuous Medications[6]PRN medications PRN Medications[7] Labs Results for orders placed or performed during the hospital encounter of 08/26/25 (from the past 24 hours) CBC and Auto Differential Result Value Ref Range WBC 11.4 (H) 4.4 - 11.3 x10*3/uL nRBC 0.0 0.0 - 0.0 /100 WBCs RBC 3.98 (L) 4.00 - 5.20 x10*6/uL Hemoglobin 11.1 (L) 12.0 - 16.0 g/dL Hematocrit 33.3 (L) 36.0 - 46.0 % MCV 84 80 - 100 fL MCH 27.9 26.0 - 34.0 pg MCHC 33.3 32.0 - 36.0 g/dL RDW 13.2 11.5 - 14.5 % Platelets 353 150 - 450 x10*3/uL Neutrophils % 84.3 40.0 - 80.0 % Immature Granulocytes %, Automated 0.7 0.0 - 0.9 % Lymphocytes % 9.6 13.0 - 44.0 % Monocytes % 5.2 2.0 - 10.0 % Eosinophils % 0.0 0.0 - 6.0 % Basophils % 0.2 0.0 - 2.0 % Neutrophils Absolute 9.58 (H) 1.20 - 7.70 x10*3/uL Immature Granulocytes Absolute, Automated 0.08 0.00 - 0.70 x10*3/uL Lymphocytes Absolute 1.09 (L) 1.20 - 4.80 x10*3/uL Monocytes Absolute 0.59 0.10 - 1.00 x10*3/uL Eosinophils Absolute 0.00 0.00 - 0.70 x10*3/uL Basophils Absolute 0.02 0.00 - 0.10 x10*3/uL Magnesium Result Value Ref Range Magnesium 2.11 1.60 - 2.40 mg/dL Hepatic Function Panel Result Value Ref Range Albumin 3.8 3.4 - 5.0 g/dL Bilirubin, Total 0.5 0.0 - 1.2 mg/dL Bilirubin, Direct 0.1 0.0 - 0.3 mg/dL Alkaline Phosphatase 103 33 - 110 U/L ALT 19 7 - 45 U/L AST 40 (H) 9 - 39 U/L Total Protein 6.3 (L) 6.4 - 8.2 g/dL Coagulation Screen Result Value Ref Range Protime 11.8 9.8 - 12.4 seconds INR 1.1 0.9 - 1.1 aPTT 72 (H) 26 - 36 seconds Type And Screen Result Value Ref Range ABO TYPE A Rh TYPE POS ANTIBODY SCREEN NEG Blood Gas Venous Full Panel Result Value Ref Range POCT pH, Venous 7.34 7.33 - 7.43 pH POCT pCO2, Venous 38 (L) 41 - 51 mm Hg POCT pO2, Venous 54 (H) 35 - 45 mm Hg POCT SO2, Venous 82 (H) 45 - 75 % POCT Oxy Hemoglobin, Venous 80.5 (H) 45.0 - 75.0 % POCT Hematocrit Calculated, Venous 35.0 (L) 36.0 - 46.0 % POCT Sodium, Venous 132 (L) 136 - 145 mmol/L POCT Potassium, Venous 5.8 (H) 3.5 - 5.3 mmol/L POCT Chloride, Venous 103 98 - 107 mmol/L POCT Ionized Calicum, Venous 1.18 1.10 - 1.33 mmol/L POCT Glucose, Venous 302 (H) 74 - 99 mg/dL POCT Lactate, Venous 4.1 (HH) 0.4 - 2.0 mmol/L POCT Base Excess, Venous -4.8 (L) -2.0 - 3.0 mmol/L POCT HCO3 Calculated, Venous 20.5 (L) 22.0 - 26.0 mmol/L POCT Hemoglobin, Venous 11.6 (L) 12.0 - 16.0 g/dL POCT Anion Gap, Venous 14.0 10.0 - 25.0 mmol/L Patient Temperature 37.0 degrees Celsius FiO2 21 % Troponin I, High Sensitivity Result Value Ref Range Troponin I, High Sensitivity (CMC) 9,126 (HH) 0 - 34 ng/L B-type natriuretic peptide Result Value Ref Range BNP 104 (H) 0 - 99 pg/mL Phosphorus Result Value Ref Range Phosphorus 4.1 2.5 - 4.9 mg/dL Basic Metabolic Panel Result Value Ref Range Glucose 284 (H) 74 - 99 mg/dL Sodium 131 (L) 136 - 145 mmol/L Potassium 5.4 (H) 3.5 - 5.3 mmol/L Chloride 100 98 - 107 mmol/L Bicarbonate 17 (L) 21 - 32 mmol/L Anion Gap 19 10 - 20 mmol/L Urea Nitrogen 28 (H) 6 - 23 mg/dL Creatinine 2.06 (H) 0.50 - 1.05 mg/dL eGFR 28 (L) >60 mL/min/1.73m*2 Calcium 9.2 8.6 - 10.6 mg/dL Hemoglobin A1c Result Value Ref Range Hemoglobin A1C 10.2 (H) See comment % Estimated Average Glucose 246 Not Established mg/dL Abo/Rh Group Test - STAT (VERAB) Result Value Ref Range ABO TYPE A Rh TYPE POS Heparin Assay Result Value Ref Range Heparin Unfractionated 0.7 See Comment Below for Therapeutic Ranges IU/mL POCT GLUCOSE Result Value Ref Range POCT Glucose 285 (H) 74 - 99 mg/dL Transthoracic Echo (TTE) Limited Result Value Ref Range BSA 2.28 m2 Troponin I, High Sensitivity Result Value Ref Range Troponin I, High Sensitivity (CMC) 20,008 (HH) 0 - 34 ng/L BLOOD GAS VENOUS FULL PANEL Result Value Ref Range POCT pH, Venous 7.33 7.33 - 7.43 pH POCT pCO2, Venous 40 (L) 41 - 51 mm Hg POCT pO2, Venous 56 (H) 35 - 45 mm Hg POCT SO2, Venous 87 (H) 45 - 75 % POCT Oxy Hemoglobin, Venous 84.6 (H) 45.0 - 75.0 % POCT Hematocrit Calculated, Venous 34.0 (L) 36.0 - 46.0 % POCT Sodium, Venous 132 (L) 136 - 145 mmol/L POCT Potassium, Venous 5.8 (H) 3.5 - 5.3 mmol/L POCT Chloride, Venous 103 98 - 107 mmol/L POCT Ionized Calicum, Venous 1.16 1.10 - 1.33 mmol/L POCT Glucose, Venous 293 (H) 74 - 99 mg/dL POCT Lactate, Venous 3.0 (H) 0.4 - 2.0 mmol/L POCT Base Excess, Venous -4.5 (L) -2.0 - 3.0 mmol/L POCT HCO3 Calculated, Venous 21.1 (L) 22.0 - 26.0 mmol/L POCT Hemoglobin, Venous 11.3 (L) 12.0 - 16.0 g/dL POCT Anion Gap, Venous 14.0 10.0 - 25.0 mmol/L Patient Temperature 37.0 degrees Celsius FiO2 21 % CBC and Auto Differential Result Value Ref Range WBC 11.3 4.4 - 11.3 x10*3/uL nRBC 0.0 0.0 - 0.0 /100 WBCs RBC 3.64 (L) 4.00 - 5.20 x10*6/uL Hemoglobin 10.4 (L) 12.0 - 16.0 g/dL Hematocrit 29.6 (L) 36.0 - 46.0 % MCV 81 80 - 100 fL MCH 28.6 26.0 - 34.0 pg MCHC 35.1 32.0 - 36.0 g/dL RDW 13.1 11.5 - 14.5 % Platelets 303 150 - 450 x10*3/uL Neutrophils % 74.5 40.0 - 80.0 % Immature Granulocytes %, Automated 0.7 0.0 - 0.9 % Lymphocytes % 16.9 13.0 - 44.0 % Monocytes % 7.6 2.0 - 10.0 % Eosinophils % 0.0 0.0 - 6.0 % Basophils % 0.3 0.0 - 2.0 % Neutrophils Absolute 8.44 (H) 1.20 - 7.70 x10*3/uL Immature Granulocytes Absolute, Automated 0.08 0.00 - 0.70 x10*3/uL Lymphocytes Absolute 1.92 1.20 - 4.80 x10*3/uL Monocytes Absolute 0.86 0.10 - 1.00 x10*3/uL Eosinophils Absolute 0.00 0.00 - 0.70 x10*3/uL Basophils Absolute 0.03 0.00 - 0.10 x10*3/uL Hepatic Function Panel Result Value Ref Range Albumin 3.5 3.4 - 5.0 g/dL Bilirubin, Total 0.4 0.0 - 1.2 mg/dL Bilirubin, Direct 0.1 0.0 - 0.3 mg/dL Alkaline Phosphatase 93 33 - 110 U/L ALT 25 7 - 45 U/L AST 102 (H) 9 - 39 U/L Total Protein 5.8 (L) 6.4 - 8.2 g/dL Magnesium Result Value Ref Range Magnesium 2.15 1.60 - 2.40 mg/dL Phosphorus Result Value Ref Range Phosphorus 5.1 (H) 2.5 - 4.9 mg/dL Basic Metabolic Panel Result Value Ref Range Glucose 242 (H) 74 - 99 mg/dL Sodium 135 (L) 136 - 145 mmol/L Potassium 4.7 3.5 - 5.3 mmol/L Chloride 100 98 - 107 mmol/L Bicarbonate 20 (L) 21 - 32 mmol/L Anion Gap 20 10 - 20 mmol/L Urea Nitrogen 34 (H) 6 - 23 mg/dL Creatinine 2.51 (H) 0.50 - 1.05 mg/dL eGFR 22 (L) >60 mL/min/1.73m*2 Calcium 9.0 8.6 - 10.6 mg/dL Iron and TIBC Result Value Ref Range Iron 113 35 - 150 ug/dL UIBC 239 110 - 370 ug/dL TIBC 352 240 - 445 ug/dL % Saturation 32 25 - 45 % Ferritin Result Value Ref Range Ferritin 85 8 - 150 ng/mL Folate Result Value Ref Range Folate, Serum 13.5 >5.0 ng/mL Vitamin B12 Result Value Ref Range Vitamin B12 224 211 - 911 pg/mL Heparin Assay Result Value Ref Range Heparin Unfractionated 0.5 See Comment Below for Therapeutic Ranges IU/mL Blood Gas Venous Full Panel Result Value Ref Range POCT pH, Venous 7.34 7.33 - 7.43 pH POCT pCO2, Venous 39 (L) 41 - 51 mm Hg POCT pO2, Venous 53 (H) 35 - 45 mm Hg POCT SO2, Venous 79 (H) 45 - 75 % POCT Oxy Hemoglobin, Venous 77.5 (H) 45.0 - 75.0 % POCT Hematocrit Calculated, Venous 32.0 (L) 36.0 - 46.0 % POCT Sodium, Venous 134 (L) 136 - 145 mmol/L POCT Potassium, Venous 4.9 3.5 - 5.3 mmol/L POCT Chloride, Venous 103 98 - 107 mmol/L POCT Ionized Calicum, Venous 1.22 1.10 - 1.33 mmol/L POCT Glucose, Venous 261 (H) 74 - 99 mg/dL POCT Lactate, Venous 2.8 (H) 0.4 - 2.0 mmol/L POCT Base Excess, Venous -4.4 (L) -2.0 - 3.0 mmol/L POCT HCO3 Calculated, Venous 21.0 (L) 22.0 - 26.0 mmol/L POCT Hemoglobin, Venous 10.8 (L) 12.0 - 16.0 g/dL POCT Anion Gap, Venous 15.0 10.0 - 25.0 mmol/L Patient Temperature 37.0 degrees Celsius FiO2 21 % POCT GLUCOSE Result Value Ref Range POCT Glucose 243 (H) 74 - 99 mg/dL Electrocardiogram, 12-lead PRN ACS symptoms Result Value Ref Range Ventricular Rate 98 BPM Atrial Rate 98 BPM MS Interval 152 ms QRS Duration 66 ms QT Interval 342 ms QTC Calculation(Bazett) 436 ms P Pigeon 61 degrees R Pigeon -4 degrees T Pigeon 86 degrees QRS Count 17 beats Q Onset 230 ms P Onset 154 ms P Offset 204 ms T Offset 401 ms QTC Fredericia 402 ms Troponin I, High Sensitivity Result Value Ref Range Troponin I, High Sensitivity (CMC) 41,750 (HH) 0 - 34 ng/L POCT GLUCOSE Result Value Ref Range POCT Glucose 363 (H) 74 - 99 mg/dL Troponin I, High Sensitivity Result Value Ref Range Troponin I, High Sensitivity (CMC) 50,216 (HH) 0 - 34 ng/L Heparin Assay Result Value Ref Range Heparin Unfractionated 0.5 See Comment Below for Therapeutic Ranges IU/mL Troponin I, High Sensitivity Result Value Ref Range Troponin I, High Sensitivity (CMC) 57,661 (HH) 0 - 34 ng/L Blood Gas Venous Full Panel Result Value Ref Range POCT pH, Venous 7.33 7.33 - 7.43 pH POCT pCO2, Venous 38 (L) 41 - 51 mm Hg POCT pO2, Venous 58 (H) 35 - 45 mm Hg POCT SO2, Venous 88 (H) 45 - 75 % POCT Oxy Hemoglobin, Venous 85.5 (H) 45.0 - 75.0 % POCT Hematocrit Calculated, Venous 31.0 (L) 36.0 - 46.0 % POCT Sodium, Venous 131 (L) 136 - 145 mmol/L POCT Potassium, Venous 5.7 (H) 3.5 - 5.3 mmol/L POCT Chloride, Venous 104 98 - 107 mmol/L POCT Ionized Calicum, Venous 1.16 1.10 - 1.33 mmol/L POCT Glucose, Venous 327 (H) 74 - 99 mg/dL POCT Lactate, Venous 3.0 (H) 0.4 - 2.0 mmol/L POCT Base Excess, Venous -5.5 (L) -2.0 - 3.0 mmol/L POCT HCO3 Calculated, Venous 20.0 (L) 22.0 - 26.0 mmol/L POCT Hemoglobin, Venous 10.4 (L) 12.0 - 16.0 g/dL POCT Anion Gap, Venous 13.0 10.0 - 25.0 mmol/L Patient Temperature 37.0 degrees Celsius FiO2 21 % ASSESSMENT & PLAN Asa Thompson is a 54 y.o. female with a PMHx CAD (moderate RCA disease 2009), TTE 2023 showed LVthrombus (no film) discharged on doac, T2DM (last A1c 10.2%) on insulin c/b neuropathy, R cerebellar stroke (2023), JAMESON (70 to 80% left internal carotid artery stenosis, 60% right internal artery stenosis, 50% proximal left subclavian artery stenosis), CKD3b, atrophic kidney s/p nephrectomy 2021, HLD, HTN, Hypothyroidism, obesity. She presented with increasing YE and orthopnea x3 days found to have NSTEMI now s/p JOSELITO to RCA on 08/26 c/b distal RCA lesion dissection, stent embolization, and spiral dissection. S/P IABP and transferred to [facility] for CTS eval. BP on presentation 237/102 with subsequent new retrosternal chest pressure which improved with labetalol and nitro gtt. Cardiac surgery is consulted for CABG evaluation. RECOMMENDATIONS/PLAN Dr. Jensen aware of patient and reviewed case and available imaging. - Given isolated RCA lesion, CABG not recommended - Dr. Jensen recommends consult to interventional cardiology for further evaluation/treatment - Medical optimization per primary team Thank you for the consultation. Patient and family educated and all questions answered. Please page the cardiac surgery consult pager [phone] with any questions or changes in patient condition. Cesilia Porras PA-C Cardiac Surgery Consult [facility]IMA [facility] Cardiac Surgery Consult Pager [phone] 08/27/2025 12:12 PM [1] History reviewed. No pertinent past medical history. [2] History reviewed. No pertinent surgical history. [3] Social History Tobacco Use Smoking status: Never Smokeless tobacco: Never Substance Use Topics Alcohol use: Never [4] No family history on file. [5] aspirin, 81 mg, oral, Daily atorvastatin, 80 mg, oral, Nightly cholecalciferol, 50 mcg, oral, Daily clopidogrel, 75 mg, oral, Daily [Held by provider] gabapentin, 600 mg, oral, BID hydrALAZINE, 25 mg, oral, TID insulin glargine, 30 Units, subcutaneous, q AM insulin lispro, 0-5 Units, subcutaneous, q4h levothyroxine, 125 mcg, oral, Daily melatonin, 3 mg, oral, Daily [Held by provider] pioglitazone, 15 mg, oral, Daily [6] dexmedeTOMIDine, 0.1-1.5 mcg/kg/hr, Last Rate: Stopped (08/27/25 1048) heparin, 0-4,000 Units/hr, Last Rate: 1,200 Units/hr (08/27/25 1000) nitroglycerin, 5-200 mcg/min, Last Rate: 20 mcg/min (08/27/25 1042) [7] PRN medications: acetaminophen, dextrose, dextrose, glucagon, glucagon, heparin, HYDROmorphone,ondansetron OR ondansetron, oxyCODONE documented in this [facility] Work Phone: 1(501) 690-110610-22-2025 History and physical note* David Cortes MD - 08/27/2025 2:23 AM EDT Images from the original note were not included. CICU Admission Note ICU Indication: ACS, RCA dissection HPI: Asa Thompson is a 54 y.o. female with CAD (moderate RCA disease 2009), ?LV thrombus noted on [id number] (was discharged on DOAC, but no fabiano history), T2DM (last A1c 10.2%) on insulin c/b neuropathy,R cerebellar stroke 2023, Carotid artery stenosis, CKD3b, atrophic kidney s/p nephrectomy 2021, HLD, HTN, Hypothyroidism, obesity who presented on 08/25 to [facility] for 3 days of YE, found to have NSTEMI, s/p JOSELITO to RCA on 08/26 c/b distal RCA lesion dissection, stent embolization, and spiral dissection. IABP was placed and patient was transferred to [facility] for CT surgery evaluation. Per chart review, patient arrived to [facility] ED with increasing YE, progresed from climbing stairs to minimal exertion. Patient also reported orthopnea. BP was initially 237/102 with anxiety and new retrosternal chest pressure which improved with labetalol. Documentation reported NSTEMI. Underwent coronary angiogram as discussed above. Patient reported intermittent CP throughout night, relieved by nitroglycerin. Also had nausea treated with antiemetics. Patient denies fever and chills. On arrival to [facility] CBC: HgB 12, WBC 6.6 plt 322 At : HgB 10.4 from baseline 11, WBC 11.3, plt 303 RFP: Na 136, K 4.1, Cl 103, HCO3 21.5, BUN 22, Cr 1.26, glu 251, Mg 1.6, PO4 4.6 At [facility]: Na 135, K 4.7, Cl 100, HCO3 20, BUN 34, Cr 2.51 from baseline 1.26, glu 242, Mg 2.15, PO4 _ LFT: wnl Coags: PT 11.8, INR 1.1, aPTT 72 BNP 104 VBG with pH 7.34, pCO2 39, HCO3 21.0, lactate 2.8 Lactate 4.1 -> 3.0 -> 2.8 Troponin 58 (at [facility]) -> 9126 -> 20,008 Lipid panel Trig 574, LDL 117, HDL 36, T chol 223 UA: 70 mg/ml protein, 1000 mg/dl glucose Imaging CTPE (08/25 at [facility]) - no PE. Coronary artery disease noted Cardiology, Vascular, and Other Imaging 08/26: Overnight TTE prelim: poor quality/difficult windows with pt body habitus and pain. Within that limitation, EF appears probably preserved but should evaluate with definity for LVEF and wall motion. There is calcification of the aortic and mitral valves. The mitral valve mean gradient is 8 mmHg at 110 bpm. RV systolic function appears normal. The IVC is normal size but <50% collapsible suggesting RA pressure ~8. Estimated RVSP 27 mmHg but may be underestimated. 08/26: [facility] Formal cath report not available, but images have been pushed over. As per transfer center notes, Lad looked good. Patient has calcified arteries. Case done through groin. No evidence of rupture or erosion in cath. The distal legion dissected. Stent placed. The stent embolized. Able to get a balloon in the embolized stent. Pt has spiral dissection. Pt tolerated everything well. Balloon pump placed 07/2024 TTE: Left Ventricle: Left ventricle is small. Systolic function is normal with an ejection fraction of 65-70%. The quantitative EF by 2D Sy biplane is 68%. There is a possible small mural thrombus. Right Ventricle: Right ventricular size appears normal. Systolic function is normal. Aortic Valve: The aortic valve was not well visualized. Unable to rule out bicuspid aortic valve. The leaflets are mildly calcified. There is at most mild stenosis. The calculated aortic valve area is 1.63 cm2. The calculated aortic valve peak gradient is 18.00 mmHg. The calculated aortic valve mean gradient is 10.00 mmHg. Mitral Valve: There is moderate posterior annular calcification. There is trace regurgitation. There is moderate stenosis. The mean gradient is 6.00 mmHg. The peak gradient is 13.54 mmHg. Left Atrium: Agitated saline bubble study revealed no evidence of right to left interatrial shunting . Consider cardiac MRI for LV thrombus rule out EKG on admission to CICU 08/26 Interventions: Medications heparin 25,000 Units in dextrose 5% 250 mL (100 Units/mL) infusion (premix) (1,200 Units/hr intravenous Rate/Dose Verify 08/27/25 0600) heparin bolus from bag 2,000-4,000 Units (has no administration in time range) nitroprusside (Nipride) infusion 500 mcg/mL (100 mL vial) (adult) (0.5 mcg/kg/min 116 kg intravenous Rate/Dose Verify 08/27/25 0400) aspirin chewable tablet 81 mg (has no administration in time range) clopidogrel (Plavix) tablet 75 mg (has no administration in time range) cholecalciferol (Vitamin D-3) tablet 50 mcg (has no administration in time range) gabapentin (Neurontin) capsule 600 mg ( oral Dose Auto Held 09/03/25 2100) hydrALAZINE (Apresoline) tablet 25 mg (25 mg oral Not Given 08/26/25 2251) levothyroxine (Synthroid, Levoxyl) tablet 125 mcg (125 mcg oral Given 08/27/25 0547) pioglitazone (Actos) tablet 15 mg ( oral Dose Auto Held 08/31/25 0900) glucagon (Glucagen) injection 1 mg (has no administration in time range) dextrose 50 % injection 25 g (has no administration in time range) insulin lispro injection 0-15 Units (has no administration in time range) glucagon (Glucagen) injection 1 mg (has no administration in time range) dextrose 50 % injection 12.5 g (has no administration in time range) insulin glargine (Lantus) injection 30 Units (has no administration in time range) acetaminophen (Tylenol) tablet 650 mg (has no administration in time range) oxyCODONE (Roxicodone) immediate release tablet 5 mg (has no administration in time range) HYDROmorphone (Dilaudid) injection 0.2 mg (has no administration in time range) ondansetron (Zofran) tablet 4 mg ( oral See Alternative 08/27/25 0405) Or ondansetron (Zofran) injection 4 mg (4 mg intravenous Given 08/27/25 0405) atorvastatin (Lipitor) tablet 80 mg (has no administration in time range) melatonin tablet 3 mg (3 mg oral Given 08/27/25320) dexmedeTOMIDine (Precedex) 400 mcg in 100 mL (4 mcg/mL) sodium chloride 0.9% infusion (0.2 mcg/kg/hr 113 kg intravenous Rate/Dose Verify 08/27/25 0600) nitroglycerin (Tridil) 50 mg in dextrose 5% 250 mL (0.2 mg/mL) infusion (premix) (5 mcg/min intravenous Rate/Dose Verify 08/27/25 06) trimethobenzamide (Tigan) injection 200 mg (200 mg intramuscular Given 08/26/252141) traZODone (Desyrel) tablet 50 mg (50 mg oral Given 08/27/25320) Medications prior to admission: Prior to Admission medications Not on File [facility] Rec ASA 81 Atorvastatin 80 Vitamin D3 50 mcg Clopidogrel 75 mg Gabapentin 600 mg bid Hydral 25 mg TID Levothyroxine 125 mcg Pioglitazone 15 mg daily Pharmacy med rec requested Allergies: RX Allergies[1] Past medical history: Coronary artery disease; catheterization 2009 with moderate, nonhemodynamically significant stenosis of the RCA Concern for small left ventricular mural thrombus on TTE 2023, low suspicion but was anticoagulatedand planned to get repeat TTE Type 2 diabetes mellitus with a hemoglobin A1c 10.2 and neuropathy Dyslipidemia Hypertension Hypothyroidism MRI showed small area of acute ischemia in the paramedian right cerebellar hemisphere 2023 Chronic kidney disease stage IIIb Carotid artery stenosis in the mid; 70 to 80% left internal carotid artery stenosis, 60% right internal artery stenosis, 50% proximal left subclavian artery stenosis BMI greater than 40 Surgical history: Hysterectomy S/p nephrectomy in 2021 for atrophic kidney Family history: Family History[2] Reports father had heart attack at age 50 Social history: reports that she has never smoked. She has never used smokeless tobacco. She reports that she does not drink alcohol. Review of systems: ROS negative except as noted per HPI. Vitals: 24 Hour Vitals Temp: [36 C (96.8 F)-36.8 C (98.2 F)] 36.1 C (97 F) Heart Rate: [90-110] 90 Resp: [16-23] 16 BP: (110-186)/(53-102) 123/95 Temp (24hrs), Av.2 C (97.2 F), Min:36 C (96.8 F), Max:36.8 C (98.2 F) 24 hour Intake/Output Intake/Output Summary (Last 24 hours) at 08/27/2025 0609 Last data filed at 08/27/2025 0600 Gross per 24 hour Intake 135.76 ml Output 120 ml Net 15.76 ml Physical Exam: Physical Exam Constitutional: General: She is in acute distress. Appearance: She is not toxic-appearing or diaphoretic. HENT: Head: Normocephalic. Mouth/Throat: Pharynx: No oropharyngeal exudate. Cardiovascular: Rate and Rhythm: Regular rhythm. Tachycardia present. Pulses: Normal pulses. Heart sounds: No murmur heard. Pulmonary: Effort: Pulmonary effort is normal. Abdominal: General: Abdomen is flat. There is no distension. Palpations: Abdomen is soft. Musculoskeletal: Right lower leg: No edema. Left lower leg: No edema. Skin: General: Skin is warm. Capillary Refill: Capillary refill takes less than 2 seconds. Coloration: Skin is not jaundiced. Neurological: General: No focal deficit present. Mental Status: She is alert. Cranial Nerves: No cranial nerve deficit. Motor: No weakness. Psychiatric: Comments: anxious Labs: Results from last 7 days Lab Units 08/27/2531008/26/252157 WBC AUTO x10*3/uL 11.3 11.4* HEMOGLOBIN g/dL 10.4* 11.1* HEMATOCRIT % 29.6* 33.3* PLATELETS AUTO x10*3/uL 303 353 Results from last 7 days Lab Units 08/27/2531008/26/252157 SODIUM mmol/L 135* 131* POTASSIUM mmol/L 4.7 5.4* CO2 mmol/L 20* 17* ANION GAP mmol/L 20 19 BUN mg/dL 34* 28* CREATININE mg/dL 2.51* 2.06* GLUCOSE mg/dL 242* 284* EGFR mL/min/1.73m*2 22* 28* MAGNESIUM mg/dL 2.15 2.11 PHOSPHORUS mg/dL 5.1* 4.1 Results from last 7 days Lab Units 08/27/2531008/26/25 2158 ALT U/L 25 19 AST U/L 102* 40* ALK PHOS U/L 93 103 Results from last 7 days Lab Units 08/26/252157 INR 1.1 Results from last 7 days Lab Units 08/27/25 0320 08/27/25 0004 08/26/252157 FIO2 % 21 21 21 Results from last 7 days Lab Units 08/27/25 0320 08/27/25 0004 08/26/252157 POCT PH, VENOUS pH 7.34 7.33 7.34 POCT PCO2, VENOUS mm Hg 39* 40* 38* Imaging: Vas carotid duplex bilateral Result Date: 08/06/2024 Narrative: Right: Plaque with significant spectral Doppler/color flow disturbances; ICA Velocity 188/62 cm/sec, ICA/CCA Ratio 2.1. Antegrade vertebral artery flow. Left: Plaque with significant spectral Doppler/color flow disturbances; ICA Velocity 289/69 cm/sec, ICA/CCA Ratio 3.6. Antegrade vertebral artery flow. General: In-patient, bedside examination. MR brain without contrast Result Date: 08/05/2024 IMPRESSION: 1. Small area of acute ischemia paramedian right cerebellar hemisphere. 2. Diminutive vertebrobasilar circulation. Sequelae nonacute lacunar infarcts within the basal ganglia, new since 2021.. CT angiogram carotid Result Date: 08/03/2024 IMPRESSION: 1. There is 60% right internal carotid artery stenosis. 2. There is 70-80% left internal carotid artery stenosis. 3. There is 50% proximal/prevertebral left subclavian artery stenosis. 4.Moderate stenosis of the left vertebral artery due to extrinsic compression from osteophytes at the C4-C5 level. CT angiogram head Result Date: 08/03/2024 IMPRESSION: * No large vessel intracranial vascular occlusion or cerebral aneurysm. [facility] dose modulation, iterative reconstruction, and/or weight based dosing when appropriate to reduce radiation dose to as low as reasonably achievable. Finalized byFermin Contreras MD on 08/03/2024 5:[address] brain without contrast stroke alert Result Date: 08/03/2024 IMPRESSION: No acute intracranial process. Assessment and plan: Asa Thompson is a 54 y.o. female with CAD (moderate RCA disease 2009), ?LV thrombus noted on [id number] (was discharged on DOAC, but no fabiano history), T2DM (last A1c 10.2%) on insulin c/b neuropathy,R cerebellar stroke 2023, Carotid artery stenosis, CKD3b, atrophic kidney s/p nephrectomy 2021, HLD, HTN, Hypothyroidism, obesity who presented on 08/25 to [facility] for 3 days of YE, found to have NSTEMI, s/p JOSELITO to RCA on 08/26 c/b distal RCA lesion dissection, stent embolization, and spiral dissection. IABP was placed and patient was transferred to [facility] 08/[address] surgery evaluation. Patient is on nitroprusside gtt for blood pressure and nitroglycerin gtt for chest pain. Neurologic #Hx of Paramedian R Cerebellar Hemisphere Stroke #HX of Multiple Lacunar infarcts in basal ganglia :: Found on MRI 2023 after presenting for severe headache and double vision of L eye. Also found tohave significant Carotid Artery stenosis as discussed below. Plavix loaded. Discharged on ASA/Plavix for stroke and Apixiban 5 BID for ?LV thrombus :: Last Neuro stroke note while inpatient recommended either ASA + Eliquis or ASA + Clopidogrel butnot triple therapy Plan for Carotid Artery stenosis as below Plan for AC/AP agents as below #Agitation Precedex gtt for RASS 0 to -1 Cardiovascular #STEMI #RCA stent embolization #RCA distal lesion Dissection, spiral dissection #HLD #HTN Emergency #HTN :: BP on presentation to [facility] 237/102 :: TTE 2023 with preserved EF :: Initially reported to have NSTEMI, but ECG on arrival to CICU shows STEMI in inferior leads :: RCA JOSELITO c/b distal RCA lesion dissection, stent embolization, and spiral dissection IABP 1:1 Continue with Aspirin Continue with Plavix Continue home Atorvastatin 80 mg Continue home hydralazine 25 mg Nipride gtt for goal Systolic BP <160 Nitroglycerin gtt titrated to relieve chest pain Heparin gtt for IABP Complete TTE IABP 1:1 #? LV thrombus :: discharged 07/2024 for Apixiban 5 BID for ?LV thrombus. Outpatient cardiology doubted true LV thrombus but follow up TTE or cMRI never completed Repeat TTE to assess if LV thrombus is present Already on heparin gtt #Carotid Artery Stenosis L>R :: CT Carotid 07/2024 - There is 60% right internal carotid artery stenosis. 2. There is 70-80% leftinternal carotid artery stenosis. 3. There is 50% proximal/prevertebral left subclavian artery stenosis. ::Was recommended to follow up with Vascular as outpatient but no documented follow up Consider repeat duplex Carotid and Vascular Surgery consult Respiratory No active issues Gastrointestinal No active issues Renal #OMAR on CKD3b #Atrophic kidney s/p nephrectomy 2021 :: suspect related to hemodynamic insult Follow UOP Urine electrolytes Renal US ordered - would only do if can be performed in unit Hematologic # Normocytic Anemia Follow anemia workup - b12, folate, iron, TIBC, ferritin Infectious Disease No active issues Endocrine #T2DM (last A1c 10.2%) on insulin complicated by neuropathy :: Takes pioglitazone and 70 units of NPH Regular 70-30 mix at home Hold home pioglitazone Hold home gabapentin SSI Lantus 30 units q AM #Hypothyroidism Continue home levothyroxine #Vitamin D deficiency Continue home repletion F: likely overloaded E: K>4, P>3, Mg>2 N: NPO Diet Except: Sips with meds; Effective now Access/Tubes: Intra Aortic Balloon Pump (Active) Earliest Known Present: 08/26/25 Insertion Site: Right femoral Verification by X-ray: (c) Other (Comment) Number of days: 1 Antimicrobials: None DVT prophylaxis: heparin gtt GI prophylaxis: Not indicated Bowel Reg: MiraLAX daily and Senna BID Code status: Full Code (confirmed on admission) Emergency Contact: Kemal (spouse) - patient is unable to provide cell phone number at this time [ ] please obtain in AM Extended Emergency Contact Information Primary Emergency Contact: Arian Thompson Mobile Relation: Son Patient and plan discussed with fellow. To be fully staffed with attending physician in AM. David Cortes MD PGY-3 Internal Medicine [1] Allergies Allergen Reactions Ciprofloxacin GI Upset Morphine Hives Penicillamine Hives [2] No family history on file. Cosigned by Spencer Kong MD at 08/29/2025 4:45 PM EDT Associated attestation - Spencer Kong MD - 08/29/2025 4:45 PM EDT I saw and evaluated the patient. I personally obtained the trevizo and critical portions of the historyand physical exam or was physically present for trevizo and critical portions performed by the resident/fellow. I reviewed the resident/fellow's documentation and discussed the patient with the resident/f sindhu. I agree with the resident/fellow's medical decision making as documented in the note. Very pleasant 54yo F who underwent complex PCI at another facility complicated by distal RCA dissection, unable to be stented at that time. Proximal stents placed slightly underexpanded. IABP placed and transferred to [facility] for additional options including possible repeat PCI vs single vessel CABG. She is HD stable with no chest pain. Plan likely medical management only. Will continue DAPT, wean IABP as tolerated. [facility] Work Phone: 1(847) 694-473710-20-2025 Evaluation note* Diagnosis Onset Date Resolution Status Admit Date Elevated troponin acuteOctober 2024 6:09pmHypertensive urgencyacuteOctober 2024 6:09pm NSTEMI (non-ST elevated myocardial infarction)acuteOctober 2024 6:09pm [facility] Work Phone: 1(599) 532-205612-27-2024 NotePatient: Asa Thompson Procedure Information Date/Time: 11/01/24 1030 Procedure: TRANSESOPHAGEAL ECHO (ANGEL) Location: [facility] V[facility] Vascular Lab Clinical information reviewed: Allergies Meds Physical Exam Airway Mallampati: III TM distance: >3 FB Neck ROM: full Cardiovascular Rhythm: regular Rate: normal Dental Pulmonary Breath sounds clear to auscultation Abdominal Anesthesia Plan [facility] Note H&P reviewed. The patient was examined and there are no changes [...] Dr. Ramos for abnormal echo performed at [facility] last month while inpatient. She was [...] complication, with long-term current use of insulin ([facility]) Essential hypertension Mixed hyperlipidemia Complicated headache syndromes Hyperglycemia OMAR (acute kidney injury) ([facility]) Vision changes Hypomagnesemia Cerebrovascular accident (CVA) due to embolism of precerebral artery ([facility]) Update 09/02/2024: She has had no further [...] of left kidney, CVA (cerebral vascular accident) ([facility]) (2021), Diabetes mellitus ([facility]), and Kidney stone. Surgical History [...] (HumuLIN 70/30 U-100 I (more content not included)...[facility]02-21-2023 Evaluation note* Encounter Date Diagnosis Assessment Notes Treatment Notes Treatment Clinical Notes Dec, Chronic kidney disease, stage IV [...] with renal ultrasound prior to next visit Dec,nemia, unspecified type (ICD-10 - D64.9)Last hemoglobin 10.1 g/dL. Could be from advanced CKD. I will check iron storage along with folate and vitamin B12. No need for TIFFANIE. Dec,Nephrolithiasis (ICD-10 - N20.0)Patient has history of nephrolithiasis for many years. He is now status post left nephrectomy due to large obstructive left ureteral stone which was complicated with UTI and pyonephritis. Patient follows with urology clinic at [facility] Dec,Solitary kidney, acquired (ICD-10 - Z90.5)Patient is status post left nephrectomy in October 2022 due to large obstructive left ureter with UTI. As per the patient,tThe left kidney was functioning only 13% Dec,Type 2 diabetes mellitus with other specified complication (ICD-10 - E11.69)Patient has long history of diabetes for [address] Ramos for diabetes management. I will check GFR today. If GFR remains below [address] Ramos to stop metformin. Keep hemoglobin A1c below 7% to preserve kidney function Dec,Obesity, unspecified (ICD-10 - E66.9)Advised weight loss Dec,Hypertensive nephropathy (ICD-10 - I12.9)Blood pressure seems well controlled. I am okay to continue losartan for now. Asked patient to monitor her blood pressure at home and to follow a low-salt diet [employer] Other 09-20-2022 NotePROCEDURE: MARTINE LILLY NEPHROSTMY CATH [...] detailed explanation of the procedure including risks. [place] protocol was observed. Sterile gowns, masks, hats and gloves utilized for maximal sterile barrier. The patient was placed in the prone position on the fluoroscopy table, and the existing left nephroureteral stent and flank were prepped and draped in sterile manner. The stent tubing was noted to be broken with the lumen exposed near the level of the skin. A cigarette filter inspector image demonstrated the distal loop approximating the [...] wire. Under fluoroscopic guidance, a new 8 [place] x 22 cm nephroureteral stent was advanced over the wire; the distal loop formed in the bladder, but the proximal loop did not form in the renal pelvis. Therefore, this catheter was removed over wire, and a new 8 [place] x 24 cm nephroureteral stent was advanced [...] Signed by: Bishnu Alan MD 07/26/22 Final resultMer[facility]st[facility]09-20-2022 NotePROCEDURE: IR CHG NEPHROSTMY CATH [...] detailed explanation of the procedure including risks. [place] protocol was observed. Sterile gowns, masks, hats and gloves utilized for maximal sterile barrier. The patient was placed in the prone position on the fluoroscopy table, and the existing left nephroureteral stent and flank were prepped and draped in sterile manner. The stent tubing was noted to be broken with the lumen exposed near the level of the skin. A cigarette filter inspector image demonstrated the distal loop approximating the [...] wire. Under fluoroscopic guidance, a new 8 [place] x 22 cm nephroureteral stent was advanced over the wire; the distal loop formed in the bladder, but the proximal loop did not form in the renal pelvis. Therefore, this catheter was removed over wire, and a new 8 [place] x 24 cm nephroureteral stent was advanced over the wire. The distal loop formed in the expected position of the bladder, and the proximal loop partially formed in the renal pelvis. Contrast injection confirmed appropriate positioning. The stent was then attached to the skin with a 2-0 monofilament suture. The patient tolerated the procedure well. COMPLICATIONS: None immediately apparent MHPN RIS [id number] History of Present illness Narrative* Paloma Arceo MD - 07/26/2022 1:42 PM EDT [facility] CDU / OBSERVATION ENCOUNTER ATTENDING NOTE [...] going to IR this morning for replacement. [place] observation unit for nephrostomy tube placement. Patient reassessed on arrival to the floor. Paloma Arceo MD Attending Emergency Physician * Song Sharif - 07/26/2022 12:50 AM EDT SPIRITUAL CARE DEPARTMENT - [facility] PROGRESS NOTE Shift date: 07.25.2022 Shift day: Monday Shift # 2 Room # 10/17 Name: Asa Thompson Advent: unknown Place of yazdanism: unknown Referral: Routine Visit Admit Date & Time: 07/25/2022 5:43 PM Assessment: Asa Thompson is a 51 y.o. female in the hospital with pain. Upon entering the room va underwriter observes patient in pain and states that she is looking for a nurse to provide pain management. Patient appears to be coping otherwise. Intervention: Typing Teacher introduced self and title as cadastral surveyor Typing Teacher offered space for the patient to express feelings, needs, and concerns and provided a ministry presence. Outcome: Patient requests nursing assistance for pain. Boom Conveyor Operator attempted to follow up with nursing staff. Plan: Chaplains will remain available to offer spiritual and emotional support as needed. . Spiritual Care Department [facility] [phone] 07/25/22 2310 Encounter Summary Service Provided For: [...] and concerns;Venting emotion documented in this encounterBON COPPER SPRINGS HOSPITALFreedom Basketball League Work Phone: 1(322) 833-673409-16-2022 History of Present illness Narrative* Christine Campa RN - 07/22/2022 4:32 PM EDT Typing Teacher went over all discharge paperwork with patient and Shaq bedside. Patient denies any further questions or concerns at this time. Patient also has a BMP script to get done within 1 week and have results sent to PCP. Typing Teacher also called [facility] pharmacy in [place] and verified E-prescriptions were sent. Patient also has all personal belongings on discharge as well * Kareen Kumar - 07/22/2022 4:26 PM EDT CLINICAL PHARMACY NOTE: MEDS TO BEDS Total # of Prescriptions Filled: 3 The following medications were delivered to the patient: Furosemide 20mg Ciprofloxacin 500mg Hydralazine 25mg Additional Documentation: delivered to patient in room 541 07/22 at 3:33pm. Co- pay $16.50 clover. * Christine Campa RN - 07/22/2022 3:47 PM EDT Typing Teacher was unable to set up follow up appointment for Dr. Chino Dempsey (urologist) on discharge d/tthe office being closed. Typing Teacher explained to the patient that she will need to call [facility] to schedule that appointment with in 2 weeks * CYNTHIA ZARAGOZA - 07/22/2022 3:03 PM EDT Images [...] Patient : Asa Thompson; 51 y.o. Location[facility] Attending: Livia Cantrell MD Admit Date: 07/18/2022 [...] Date/Time NITRU NEGATIVE 07/20/2022 03:05 PM COLORU Robertson 07/20/2022 03:05 PM PHUR 5.0 07/20/2022 03:05 [...] as outpatient as well, patient lives near [facility] and will likely ask her PCP to get nephrological referral otherwise if she wants she can follow-up in the clinic with us as well. She should get BMP results done in 1 week and results faxed to PCP. Nutrition Please ensure that patient is on a renal diet/TF. Avoid nephrotoxic drugs/contrast exposure. Shahid Do MD [facility] This note is created with the assistance of a speech-recognition program. While intending to generate a document that actually reflects the content of the visit, no guarantees can be provided that every mistake has been identified and corrected by editing. * Urban Noriega MD - 07/22/2022 10:27 AM EDT Images from the original note were not included. [facility] - Progress Note Today's Date and [...] urine cultures: No growth Urine culture from [place]: E coli, multi-sensitive Patient will need treatment [...] lithotripsy in the future. Infection Control Recommendations [place] Precautions Antimicrobial Stewardship Recommendations Simplification of therapy [...] is a 51-year-old female who presents to [facility] with a chief complaint of left flank pain that started at 4 AM on 07/18/2022. Patient states that the pain is intense and is radiating towards her left groin. Patient denies any fever, burning urination, urgency frequency, vomiting, loose stool, any shortness of breath or chest discomfort. Patient went to [place] and had a CT imaging done. 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 Urinalysis positive for leukocytes and nitrates and blood. White blood cell count 13.7 and creatinine of 1.45. Patient needed urology evaluation and nephrostomy tube placement . She was transferred to [facility]. Urology was consulted. Urology plan for IR [...] Blood and urine cultures: No growth at [facility] Urine culture at [place] with E coli Patient reports tolerating Cipro [...] Cultures: Urine: 07-18-22: E coli- Multi-sensitive at [place] 07/18/2022: No growth 07/19/2022: Urinalysis: Turbid, glucose [...] bladder, as above. Findings were discussed with LIZZETTE CLAY at 4:09 pm on 07/19/2022. Discussed [...] NEPHROSTOMY PERCUTANEOUS LEFT 07/19/2022 Noman Mullen MD [facility] SPECIAL PROCEDURES Medications: hydrALAZINE 25 [...] the procedure including risks, benefits, and alternatives. [place] protocol was followed. The patient's flank was [...] into the urinary bladder using a 4 Citizen [place] Kumpe the catheter; the Glidewire was exchanged [...] puncture of the lower pole calyx, 4 [place] Kumpe the catheter manipulation and glidewire extension into the urinary bladder. Subsequent images show the nephroureteral stent in satisfactory position. Impression Successful percutaneous left nephroureteral stent placement via lower pole, past a large staghorn calculus, with distal pigtail tip position in the urinary bladder, as above. Findings were discussed with LIZZETTE CLAY at 4:09 pm on 07/19/2022. Medical Decision Jbqjkz-Jormcmqs-Cwafc: Medical Decision Making-Other: Note: Labs, medications, radiologic studies were reviewed with personal review of films Large amounts of data were reviewed Discussed with nursing Staff, shutdown planner Infection Control and Prevention measures reviewed All prior entries were reviewed Administer medications as ordered Prognosis: Good Discharge planning reviewed Follow up as outpatient. Thank you for allowing us to participate in the care of this patient. Please call with questions. Urban Noriega MD * Keo Guevara MD - 07/22/2022 7:45 AM EDT Physician Progress Note PATIENT: ASA THOMPSON CSN #: [id number] : 1970 ADMIT DATE: 07/18/2022 3:19 PM [...] Thank you, Judith LUNA,RN, CDI email - [email or web address] [phone] office hours [id number] Options provided: -- Sepsis, [...] on 07/21/2022 9:07 AM Electronically signed by: KOE GUEVARA 07/22/2022 7:44 AM * Keo Guevara MD - 07/22/2022 7:44 AM EDT Images from the original note were not included. [facility] Internal Medicine Teaching Residency Program Inpatient Daily Progress Note Patient: Asa Thompson Date of : 1970 Acct: [id number] Room: [address] [place] [address]- Admit date: 07/18/2022 Today's date: 07/22/22 Number [...] positive for E. Coli- multi sensitive at [place] Lactic acid-1.5-2.3 Urology on board-okay to be [...] breath or chest discomfort. Patient went to [place] and CT imaging showed partially obstructing large staghorn calcification in left renal pelvis and perinephric edema-small amount of air and gas concerning for pyelonephritis.UA positive for leukocytes and nitrites with blood.WBC count 13.7 and creatinine of 1.45. Patient needed urology evaluation and nephrostomy tube placement so transferred to the [facility]. Urology consulted plan for IR tomorrow. patient [...] Keo Guevara MD Internal Medicine Resident, PGY-1 [facility]; [place], [place] 07/22/2022, 7:44 AM Associated attestation - Livia Cantrell MD - 07/22/2022 2:02 PM EDT Attending Physician Statement I have discussed the case of Asa Thompson, including pertinent history and exam findings with the resident/fellow/medical student/APPLICATIONS TESTER/PA. I have seen and examined the patient and the trevizo elementsof the encounter have been performed by me. I agree with the assessment, plan and orders as documented by the resident/fellow/medical student/APPLICATIONS TESTER/PA With changes made to the note as [...] been improving Microbiologic data remains negative at [facility] activity Percutaneous nephrostomy tube is draining Discharge [...] Date/Time NITRU NEGATIVE 07/20/2022 03:05 PM COLORU Robertson 07/20/2022 03:05 PM PHUR 5.0 07/20/2022 03:05 [...] 07/21/2022 1:36 PM EDT Physical Therapy Facility/Department: [address] [facility] Physical Therapy Initial Assessment Name: [...] Ambulation Assistance: Independent Transfer Assistance: Independent Active Pulmonology Technician: Yes Mode of Transportation: [facility] Occupation: Unemployed Leisure & Hobbies: Everything [...] 58 Minutes 29 Timed Code Treatment Minutes: 8 [...] 07/21/2022 12:07 PM EDT Occupational Therapy Facility/Department: [address] [facility] Occupational Therapy Initial Assessment Name: [...] Ambulation Assistance: Independent Transfer Assistance: Independent Active Pulmonology Technician: Yes Mode of Transportation: SUV Occupation: [...] were not included. [facility] - Progress Note Today's Date and [...] up to a week. Infection Control Recommendations [place] Precautions Antimicrobial Stewardship Recommendations Simplification of therapy [...] is a 51-year-old female who presents to [facility] with a chief complaint of left flank pain that started at 4 AM on 07/18/2022. Patient states that the pain is intense and is radiating towards her left groin. Patient denies any fever, burning urination, urgency frequency, vomiting, loose stool, any shortness of breath or chest discomfort. Patient went to [place] and had a CT imaging done. 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 Urinalysis positive for leukocytes and nitrates and blood. White blood cell count 13.7 and creatinine of 1.45. Patient needed urology evaluation and nephrostomy tube placement . She was transferred to [facility]. Urology was consulted. Urology plan for IR [...] bladder, as above. Findings were discussed with LIZZETTE CALY at 4:09 pm on 07/19/2022. Discussed with [...] without long-term current use of insulin ([facility]) Past Surgical History: Past Surgical History: Procedure Laterality Date IR NEPHROSTOMY PERCUTANEOUS LEFT 07/19/2022 IR NEPHROSTOMY PERCUTANEOUS LEFT 07/19/2022 Noman Mullen MD [facility] SPECIAL PROCEDURES Medications: insulin lispro [...] the procedure including risks, benefits, and alternatives. [place] protocol was followed. The patient's flank was [...] into the urinary bladder using a 4 Citizen [place] Kumpe the catheter; the Glidewire was exchanged [...] puncture of the lower pole calyx, 4 Citizen [place] Kumpe the catheter manipulation and glidewire extension into the urinary bladder. Subsequent images show the nephroureteral stent in satisfactory position. Impression Successful percutaneous left nephroureteral stent placement via lower pole, past a large staghorn calculus, with distal pigtail tip position in the urinary bladder, as above. Findings were discussed with LIZZETTE CLAY at 4:09 pm on 07/19/2022. Medical Decision Jcbsek-Gbvgbbpz-Xnbma: Medical Decision Making-Other: Note: Labs, medications, radiologic studies were reviewed with personal review of films Large amounts of data were reviewed Discussed with nursing Staff, shutdown planner Infection Control and Prevention measures reviewed All prior entries were reviewed Administer medications as ordered Prognosis: Good Discharge planning reviewed Follow up as outpatient. Thank you for allowing us to participate in the care of this patient. Please call with questions. Urban Noriega MD * Phillip Garrett MD - 07/21/2022 8:22 AM EDT Images from the original note were not included. [facility] Internal Medicine Teaching Residency Program Inpatient Daily Progress Note Patient: Asa Thompson Date of : 1970 Acct: [id number] Room: [address] [place] [address] Admit date: 07/18/2022 Today's date: 07/21/22 Number [...] breath or chest discomfort. Patient went to [place] and CT imaging showed partially obstructing large staghorn calcification in left renal pelvis and perinephric edema-small amount of air and gas concerning for pyelonephritis.UA positive for leukocytes and nitrites with blood.WBC count 13.7 and creatinine of 1.45. Patient needed urology evaluation and nephrostomy tube placement so transferred to the [facility]. Urology consulted plan for IR tomorrow. patient [...] time PT/OT/SW-consulted we will follow-up Discharge Planning: systems project manager consulted Phillip Garrett MD Internal Medicine Resident, PGY-1 [facility]; [place], [place] 07/21/2022, 8:22 AM Associated attestation - Livia Cantrell MD - 07/21/2022 8:43 PM EDT Attending Physician Statement I have discussed the case of Asa Thompson, including pertinent history and exam findings with the resident/fellow/medical student/APPLICATIONS TESTER/PA. I have seen and examined the patient and the trevizo elementsof the encounter have been performed by me. I agree with the assessment, plan and orders as documented by the resident/fellow/medical student/APPLICATIONS TESTER/PA With changes made to the note as [...] 11:26 PM EDT SPIRITUAL CARE DEPARTMENT - [facility] PROGRESS NOTE Shift date: 07/20/22 Shift day: Monday Shift # 2 Room # 0541/0541-01 Name: Asa Thompson Advent: Place of yazdanism: Referral: Routine Visit Admit Date & Time: 07/18/2022 3:19 PM Assessment: Asa Thompson is a 51 y.o. female Intervention: Typing Teacher introduced self and title as cadastral surveyor. Patient did not appear to mind cadastral surveyor presence. Typing Teacher offered space for patient to express feelings, needs, and concerns and provided a ministry presence. Patient appeared to be resting and coping. Outcome: While gonzález/spirituality were not discussed, patient appeared receptive to cadastral surveyor presence.3 Plan: Chaplains will remain available to offer spiritual and emotional support as needed. . Spiritual Care Department [facility] [phone] * TERRY BERGMAN - 07/20/2022 9:30 PM EDT Orders received for patients high BP * TERRY BERGMAN - 07/20/2022 9:08 PM EDT Notified fire protection specialist resident for internal medicine of patients current [...] from the original note were not included. [facility] Internal Medicine Teaching Residency Program Inpatient Daily Progress Note Patient: Asa Thompson Date of : 1970 Acct: [id number] Room: [address] [place] [address] Admit date: 07/18/2022 Today's date: 07/20/22 Number of days in the hospital: 2 SUBJECTIVE Admitting Diagnosis: Calculous pyelonephritis CC: Left flank pain Pt examined at bedside. Chart & results reviewed. No acute event overnight Patient remained afebrile hemodynamically stable Pain better controlled with pain meds IR guided left percutaneous nephrostomy tube placement yesterday evening-output 500 so far WBC-12.3-7.1-10.2 Creatinine 1.65-1.71-2.11 Tnwszz-[id number]-corrected sodium 133 Lactic acid-3.8 Glucose-416 ROS: Constitutional: [...] breath or chest discomfort. Patient went to [place] and CT imaging showed partially obstructing large staghorn calcification in left renal pelvis and perinephric edema-small amount of air and gas concerning for pyelonephritis.UA positive for leukocytes and nitrites with blood.WBC count 13.7 and creatinine of 1.45. Patient needed urology evaluation and nephrostomy tube placement so transferred to the [facility]. Urology consulted plan for IR tomorrow. patient [...] BID Continuous Infusions: sodium chloride Stopped (07/19/22 1981) dextrose sodium chloride 100 mL/hr at 07/20/22 [...] time PT/OT/SW-consulted we will follow-up Discharge Planning: systems project manager consulted Keo Guevara MD Internal Medicine Resident, PGY-1 [facility]; [place], [place] 07/20/2022, 8:06 AM Associated attestation - Livia Cantrell MD - 07/20/2022 7:52 PM EDT Attending Physician Statement I have discussed the case of Asa Thompson, including pertinent history and exam findings with the resident/fellow/medical student/APPLICATIONS TESTER/PA. I have seen and examined the patient and the trevizo elementsof the encounter have been performed by me. I agree with the assessment, plan and orders as documented by the resident/fellow/medical student/APPLICATIONS TESTER/PA With changes made to the note as [...] not included. Ke Bonilla Santacroce, Khan, Mostafa, Buck, Murtagh Jr Urology Progress Note [...] C) Oral (!) 112 14 95 % 07/19/225 115/76 98.1 F (36.7 C) Oral (!) [...] 86.6 PLT 410 280 252 Recent Labs 07/19/2207/20/22 0148 07/20/22 0426 NA 131* 128* 128* [...] cysto, URS, HLL 7 years prior in [place], [place] with Dr. Harrison Recurrent UTIs, 4 [...] score is now 5.12. Per sepsis protocol, va underwriter ordered lactic and blood cultures. Provider notified. * Alexsandra Mckinley RN - 07/20/2022 3:13 AM EDT Typing Teacher notified provider of infection concerns. Patient's WBC [...] original note were not included. Occupational Therapy [facility] Occupational Therapy Not Seen Note DATE: [...] from the original note were not included. Irene, Ke, Charlie Waters Mostafa, Priya Brambila Urology Progress Note Subjective: Nothing acute overnight [...] cysto, URS, HLL 7 years prior in [place], [place] with Dr. Harrison Recurrent UTIs, 4 [...] from the original note were not included. [facility] Internal Medicine Teaching Residency Program Inpatient Daily Progress Note Patient: Asa Thompson Date of : 1970 Acct: [id number] Room: [address] [place] [address] Admit date: 07/18/2022 Today's date: 07/19/22 Number [...] breath or chest discomfort. Patient went to [place] and CT imaging showed partially obstructing large staghorn calcification in left renal pelvis and perinephric edema-small amount of air and gas concerning for pyelonephritis.UA positive for leukocytes and nitrites with blood.WBC count 13.7 and creatinine of 1.45. Patient needed urology evaluation and nephrostomy tube placement so transferred to the [facility]. Urology consulted plan for IR tomorrow. patient [...] time PT/OT/SW-consulted we will follow-up Discharge Planning: systems project manager consulted Keo Guevara MD Internal Medicine Resident, PGY-1 [facility]; [place], [place] 07/19/2022, 6:40 AM Associated attestation - Livia Cantrell MD - 07/19/2022 7:45 PM EDT Attending Physician Statement I have discussed the case of Asa Thompson, including pertinent history and exam findings with the resident/fellow/medical student/APPLICATIONS TESTER/PA. I have seen and examined the patient and the trevizo elementsof the encounter have been performed by me. I agree with the assessment, plan and orders as documented by the resident/fellow/medical student/APPLICATIONS TESTER/PA With changes made to the note as [...] [N10] Calculous pyelonephritis [N20.0]. See H&P of admitting/editing intern resident for more details. Transferred from [facility] Patient came in due to [...] Brooklynn Ferrari MD Department of Internal Medicine [facility], [place] 07/19/2022, 12:39 AM documented in this encounterBON [facility]INDR[facility] [employer] Work Phone: 1(296) 647-599609-16-2022 Hospital Discharge instructions* Discharge Instructions* Keo Guevara MD - 07/22/2022 12:18 PM EDT You were admitted for staghorn renal calculi and your urine culture from [place] was positive for Ecoli. Please take ciprofloxacin [...] Directives: Admitting Physician: Livia Cantrell MD PCP: Ricardo Ramos MD Discharging Nurse: Discharging Hospital Unit/Room#: 0541/0541-01 Discharging Unit Phone Number: Emergency Contact: Extended Emergency Contact Information Primary Emergency Contact: arian thompson Relation: Child Costume Technician needed? No Past Surgical History: Past Surgical History: Procedure Laterality Date IR NEPHROSTOMY PERCUTANEOUS LEFT 07/19/2022 IR NEPHROSTOMY PERCUTANEOUS LEFT 07/19/2022 Noman Mullen MD [facility] SPECIAL PROCEDURES Immunization History: There is no immunization history on file for this patient. Active Problems: Patient Active Problem List Diagnosis Code Calculous pyelonephritis N20.0 OMAR (acute kidney injury) ([facility]) N17.9 Type 2 diabetes mellitus, with long-term current use of insulin ([facility]) E11.9, Z79.4 Leukocytosis D72.829 Hypothyroidism E03.9 Depression F32.A Hypertension I10 History of coronary artery disease Z86.79 Acute pyelonephritis N10 Left renal atrophy N26.1 Kidney stone N20.0 Sepsis with acute renal failure without septic shock ([facility]) A41.9, R65.20, N17.9 History of [...] MENTAL STATUS:} IV Access: { TIMO IV ACCESS:122185100} Nursing Mobility/ADLs: Walking {CHP DME ADLs:561130418} Transfer {CHP DME ADLs:724280362} Bathing {CHP DME ADLs:708856804} Dressing {CHP DME ADLs:412305358} Toileting {CHP DME ADLs:962627184} Feeding {CHP DME ADLs:787751102} Veterinary Virologist {CHP DME ADLs:571371891} Med Delivery { TIMO MED Delivery:200884357} Wound Care Documentation and Therapy: Elimination: Continence: Bowel: {YES / NO:} Bladder: {YES / NO:} Urinary Catheter: {Urinary Catheter:617872946} Colostomy/Ileostomy/Ileal Conduit: {YES / NO:} Date of Last BM: Intake/Output Summary (Last 24 hours) at 07/22/2022 1349 Last data filed at 07/22/2022 0813 Gross per 24 hour Intake 1594.2 ml Output 3875 ml Net -2280.8 ml I/O last 3 completed shifts: In: 4236.1 [P.O.:580; I.V.:3350.1; IV Piggyback:306] Out: 6520 [Urine:6520] Safety Concerns: { TIMO Safety Concerns:787084451} Impairments/Disabilities: { TIMO Impairments/Disabilities:545871278} Nutrition Therapy: Current Nutrition Therapy: { TIMO Diet List:202107946} Routes of Feeding: {[facility] DME Other Feedings:395238634} Liquids: {[facility] liquid thickness:45207} Daily Fluid Restriction: {[facility] DME Yes amt example:070119179} Last Modified Barium Swallow with Video (Video Swallowing Test): {Done Not Done Date:} Treatments at the Time of Hospital Discharge: Respiratory Treatments: Oxygen Therapy: {Therapy; copd oxygen:94354} Ventilator: { CC Vent List:069714542} Rehab Therapies: {THERAPEUTIC INTERVENTION:0919145297} Weight Bearing Status/Restrictions: {[facility] Weight Bearin} Other Medical Equipment (for information only, NOT a DME order): {EQUIPMENT:529656431} Other Treatments: Patient's personal belongings (please select all that are sent with patient): {[facility] DME Belongings:487110233} RN SIGNATURE: {Esignature:718526090} CASE MANAGEMENT/SOCIAL WORK SECTION Inpatient Status Date: Readmission Risk Assessment Score: Readmission Risk Risk of Unplanned Readmission: 19 Discharging to Facility/ Agency Name: Address: Phone: Fax: Dialysis Facility (if applicable) Name: Address: Dialysis Schedule: Phone: Fax: Utilization Specialist/Beamster signature: {Esignature:885028628} PHYSICIAN SECTION Prognosis: {Prognosis:7359897763} Condition at Discharge: { Patient Condition:761442712} Rehab Potential (if transferring to Rehab): {Prognosis:4458640708} Recommended Labs or Other Treatments After Discharge: Physician Certification: I certify the above information and transfer of Asa Thompson is necessary for the continuing treatment of the diagnosis listed and that she requires {Admit to Appropriate Level of Care:17878} for {GREATER/LESS:888294024} 30 days. Update Admission H&P: {[facility] DME Changes in HandP:204174128} PHYSICIAN SIGNATURE: {Esignature:866445425} documented in this encounterBON [employer] Phone: [phone]) 785-553109-13-2022 NotePROCEDURE: PERCUTANEOUS ANTEGRADE PYELOGRAM LEFT PERCUTANEOUS NEPHROURETERAL [...] the procedure including risks, benefits, and alternatives. [place] protocol was followed. The patient's flank was [...] into the urinary bladder using a 4 [place] Kumpe the catheter; the Glidewire was exchanged [...] puncture of the lower pole calyx, 4 [place] Kumpe the catheter manipulation and glidewire extension into the urinary bladder. Subsequent images show the nephroureteral stent in satisfactory position. IMPRESSION: Successful percutaneous left nephroureteral stent placement via lower pole, past a large staghorn calculus, with distal pigtail tip position in the urinary bladder, as above. Findings were discussed with LIZZETTE CLAY at 4:09 pm on 07/19/2022. Interpreted by: Noman Mullen MD Signed by: Noman Mullen MD 07/19/22 [facility]22 NotePROCEDURE: PERCUTANEOUS ANTEGRADE PYELOGRAM LEFT [...] the procedure including risks, benefits, and alternatives. [place] protocol was followed. The patient's flank was [...] into the urinary bladder using a 4 [place] Kumpe the catheter; the Glidewire was exchanged [...] puncture of the lower pole calyx, 4 [place] Kumpe the catheter manipulation and glidewire extension into the urinary bladder. Subsequent images show the nephroureteral stent in satisfactory position. [facility] RIS [id number] NoteHNO ID: [id number] Author: Liliana Interiano, PhD Service: ? Author Type: Physician Type: Progress Notes Filed: 03/11/2022 3:32 PM Note Text: [facility] Progress Note 03/11/2022 Billing code: [id number]/[place] 3:10PM - I called the patient to [...] her evaluation/medical records. Will send her a I-Shake message with instructions. Liliana Interiano, PhD Clinical Health PsychologistParkview Health [facility]01-20-2022 NoteHNO ID: [id number] Author: Damien Tamez, Service: ? Author Type: Psychologist Type: Progress Notes Filed: 11/25/2021 8:38 AM Note Text: [facility] Patient no-showed appointment despite phone call and HIPAA compliant VM. Patient given instructions on rescheduling. Damien Tamez, PhD PsychologistParkview Health Montpel[facility] Hospital09-03-2021 NoteHNO ID: [id number] Author: Ghazal Doyle RD Service: ? Author [...] meal plan and stated understanding. Ghazal Doyle RDParkview Health Montpelier Hospital08-31-2021 NoteHNO ID: [id number] Author: Ghazal Doyle RD Service: ? Author Type: Registered Dietitian Type: Progress Notes Filed: 07/06/2021 11:52 AM Note Text: Telephone call placed to patient at 11:49 AM at [phone]. Received forwarded My Chart message from Aurelia Pacheco RN regarding hypoglycemia on liquid diet phase. No answer . Left message with contact telephone number [phone] and instructions to communicate with this provider via I-Shake when able. Ghazal Doyle RDParkview Health Montpelier Hospital08-16-2021 NoteHNO ID: [id number] Author: Quincy Rodriguez MD Service: ? Author Type: Physician Type: Progress Notes Filed: 06/21/2021 12:56 PM Note Text: Metabolic Surgery Postoperative Virtual Clinic Visit Name: Asa Thompson This visit was performed virtually via itembaseom technology due to the COVID-19 epidemic as [...] AND Bariatric Surgery Fellow Bariatric AND Metabolic [place] STAFF NOTE I have seen [...] counseling and educating the patient/family/caregiver. Quincy Rodriguez, [facility]06-04-2021 NoteHNO ID: [id number] Author: Damien Tamez, PhD Service: ? Author Type: Psychologist Type: Progress Notes Filed: 04/09/2021 2:44 PM Note Text: [facility] Receipt of Outside Records Patient: Asa Thompson Date: 04/09/2021 Received records from patient's physician, Ricardo Ramos MD of [facility] (Address: [address] [place] [address]; ; ). Asa is off of all psychiatric meds and is stable for gastric bypass surgery. These records have been sent to scanning. Plan: *All requirements have been met Damien Tamez, PhD PsychologistParkview Health [facility]05-26-2021 NoteHNO ID: [id number] Author: Ghazal Doyle RD Service: ? Author Type: Registered Dietitian Type: Progress Notes Filed: 03/31/2021 9:29 AM Note Text: [facility] Nutrition Therapy: Virtual Consult ? Re-assessment This visit was performed virtually due to the COVID-19 epidemic as an effort to protect patients and minimize exposure. Consent from patient received to conduct visit virtually. This Team Access Model visit is a virtual encounter. It required patient-provider interaction for the medical decision making as documented below. This visit completed via [employer] Now as Zoom did not connect PROGRESS: [...] - met 6. Start researching post-op vitamins: Matter[employer]io, Ayannah, or [employer]-specific websites- - met Pre-op goal weight:?238 lbs [...] Date - Anxiety - Bipolar disorder ([facility]) - CAD (coronary artery disease) 10/06/2010 - DM (diabetes mellitus) ([facility]) - Hyperlipidemia - Hypothyroidism - Nephrolithiasis - Schizophrenia ([facility]) - UTI (urinary tract infection) PAST SURGICAL HISTORY Procedure Laterality Date - CARDIAC CATH 10/06/2010 Moderate, nonhemodynamically significant stenosis of RCA (by FFR) - HYSTERECTOMY HX - PAST SURGICAL HISTORY OF 03/2016 urinary stent - TONSILLECTOMY HX ANTHROPOMETRICS Height per patient: 63? Weight per patient: 236 lbs# Most recent height and weight per [facility] Height: Last 1 Encounter Ht Readings: [...] [facility] (more content not included)... [facility]* Diagnosis Calculous pyelonephritis- Primary Kidney [...] of non-steroidal anti-inflammatories documented in this encounter [employer] Phone: evaluation note* Diagnosis Nephrostomy tube displaced (HCC)- Primary Urinary complications Nephrostomy complication (HCC) documented in this encounter [employer] Phone: evaluation note* Diagnosis Coronary artery disease involving platinum coronary artery of platinum heart without angina pectoris- Primary Coronary artery disease involving platinum coronary artery of platinum heart without angina pectoris OMAR (acute kidney injury) Bilateral carotid artery stenosis Occlusion and stenosis of carotid artery without mention of cerebral infarction Coronary stent thrombosis, initial encounter LV (left ventricular) mural thrombus Acute myocardial infarction, unspecified site, episode of care unspecified documented in this encounter [facility] Work Phone: History general Narrative - Reported* Type Description Date Medical History Hypercholesterolemia Medical HistoryDMMedical HistoryHypothyroidMedical Historydiabetic neuropathy Surgical HistoryTAH [id number] HistoryHeart [id number] Historykidney stoneSurgical Historyleft kidney mekmmqp8210/26/2022Hospitalization HistorySee past surgical historyHospitalization HistoryHeart [id number] [employer] Other Hospital Discharge instructions* Attachments The following attachments cannot be sent through Care Everywhere. 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 Procedures No coded services entered [facility] Service Area [address] [place] [phone] Phone: tel: [facility] [id number] [place] [address] [place] [address] Referral IDStatusReasonStart DateExpiration DateVisits RequestedVisits [id number] [facility] Work Phone: Assessments No Assessments Information Available Summary Purpose Family History No Family History Records Found Relationship Condition Age at Onset Recorded Date/T preet father Unknown HypertensionUnknownHeart diseaseUnknownmotherDeceasedUnknown Advance Directives No Advanced Directives Records FoundLatest Code Status on File Code StatusDate ActivatedDate InactivatedCommentsFull Code07/18/2022 6:14 PMCode StatusDate ActivatedDate InactivatedCommentsFull Code07/25/2022 8:11 PMFull Code 07/18/2022 6:14 PM07/22/2022 6:51 PM Advance Directive Response Recorded Date/ Time Advance Directives No June 19, 2019 6:23am Date ActivatedDate NbvkaxnztgsHyiipfdk00/22/2025 6:09 AMQuestionAnswerComments Plan of Care:* Code Status Discussion Completed Decision Maker:* Patient Reason for Referral SpecialtyDiagnoses / ProceduresReferred By ContactReferred To ContactRadiology Diagnoses Left renal atrophy Staghorn renal calculus Procedures NM KIDNEY W FLOW AND FUNCTION W PHARMACOLOGICAL INTERVENTION Christi Chance, DO [address] [facility] [address] [place] [address] Referral IDStatusReasonStart DateExpiration DateVisits RequestedVisits [id number]/28/20229/[id number] Chief Complaint and Reason for Visit Chief Complaint Admit Date Non-Stem August 25, 2025 6 :09pm Reason for Visit Admit Date Elevated troponin August 25, 2025 6 :09pm Hypertensive urgency August 25, 2025 6:09pm NSTEMI (non-ST elevated myocardial infar ction) August 25, 2025 6:09pm Additional Source Comments INFORMATION SOURCE (unrecogn ized section and content) DATE CREATED AUTHOR 04/03/2021 [facility] DATE CREATED AUTHOR AUTHOR'S ORGANIZ ATION 03/15/2022 [facility] DATE CREATED AUTHOR AUTHOR'S ORGANIZ ATION 08/09/2022 [facility] DATE CREATED AUTHOR AUTHOR'S ORGANIZ ATION 08/11/2022 [facility] DATE CREATED AUTHOR AUTHOR'S ORGANIZ ATION 03/17/2023 [facility] DATE CREATED AUTHOR AUTHOR'S ORGANIZ ATION 08/07/2024 [facility] DATE CREATED AUTHOR AUTHOR'S ORGANIZ ATION 09/03/2025 [facility] DATE CREATED AUTHOR AUTHOR'S ORGANIZ ATION 09/06/2025 [facility] DATE CREATED AUTHOR AUTHOR'S ORGANIZ ATION 09/07/2025 [facility] DATE CREATED AUTHOR AUTHOR'S ORGANIZ ATION 09/13/2025 [facility] Reason for Visit (unrecogniz ed section and content) ReasonCommentsFlank PainSpecialtyDiagnoses / ProceduresReferred By Contact Referred To Contact Diagnoses Kidney stone Acute pyelonephritis Calculous pyelonephritis Livia Cantrell MD [address] [address] [facility] [address] [place] [address] Referral IDStatusReasonStart DateExpiration DateVisits RequestedVisits [id number] tube got pulled. tub is broken and leaking urine. not able to gett it to stop leakingSpecialtyDiagnoses / ProceduresReferred By ContactReferred To Contact Diagnoses Nephrostomy tube displaced (HCC) Nephrostomy complication (HCC) Paloma Arceo MD [address] [place] [address] [facility] [address] [place] [address] Referral IDStatusReasonStlake arthur DateExpiration DateVisits RequestedVisits [id number] Ordered Prescriptions (unrec ognized section and content) PrescriptionSigDispensedRefillsStart DateEnd Date levothyroxine (SYNTHROID) 200 MCG tablet Take 1 tablet by mouth Daily 30 tablet ciprofloxacin (CIPRO) 500 MG tablet Take 1 tablet by mouth 2 times daily for 14 days 28 tablet furosemide (LASIX) 20 MG tablet Take 1 tablet by mouth daily 60 tablet hydrALAZINE (APRESOLINE) 25 MG tablet Take 1 tablet by mouth every 8 hours 90 tablet DULoxetine (CYMBALTA) 60 MG extended release capsule Take 1 capsule by mouth daily 30 capsule gabapentin (NEURONTIN) 600 MG tablet Take 1 tablet by mouth 3 times daily for 30 days. 90 tablet aspirin 81 MG EC tablet Take 1 tablet by mouth daily 30 tablet ciprofloxacin (CIPRO) 500 MG tablet Take 1 tablet by mouth 2 times daily for 14 days 28 tablet furosemide (LASIX) 20 MG tablet Take 1 tablet by mouth daily 60 tablet hydrALAZINE (APRESOLINE) 25 MG tablet Take 1 tablet by mouth every 8 hours 90 tablet rescriptionSigDispensedRefillsStart DateEnd Date ibuprofen (ADVIL;MOTRIN) 800 MG tablet Take 1 tablet by mouth every 8 hours as needed for Pain 30 tablet / oxyCODONE-acetaminophen (PERCOCET) 5-325 MG per tablet Indications:Nephrostomy complication (HCC)Take 1 tablet by mouth every 8 hours as needed for Pain for up to 3 days. 9 tablet / Scheduled Active and Recently Administ ered Medications (unrecognized section and content) Medication Order/ 0.9 % sodium chloride bolus (COMPLETED) 500 mL (4.31 mL/kg), IntraVENous, at 247.9 mL/hr, Administer over 121 Minutes, ONCE, On Mon07/20/22at 0545, For 1 dose * 0537 (New Bag - Provider: Alexsandra Mckinley RN) * 0743 (Stopped - Provider: Ligia Mattson, BRANDON) atorvastatin (LIPITOR) tablet 80 mg 80 mg, Oral, DAILY, First dose on Mon07/19/22 at 2100, Until Discontinued * 2158 (Given - Provider: TERRY BERGMAN) * 2140 (Given - Provider: TERRY BERGMAN) * 2100 (Due) ciprofloxacin (CIPRO) IVPB 400 mg (CANCELED) 400 mg, IntraVENous, EVERY 12 HOURS, 14 doses, First dose on Mon07/18/22 at 2145, Last dose on Mon07/25/22 at 0945, Antimicrobial Indications: Urinary Tract Infection, UTI duration of therapy: 7 days * 0856 (New Bag - Provider: Ligia Mattson, BRANDON) * 1029 (Stopped - Provider: Ligia Mattson, BRANDON) DULoxetine (CYMBALTA) extended release capsule 60 mg 60 mg, Oral, DAILY, First dose on Mon07/20/22 at 1200, Until Discontinued, Do not crush or break. May add contents of capsule to apple juice or apple sauce, but not chocolate. * 1235 (Given - Provider: Ligia Mattson RN) * 0812 (Given - Provider: Latoya Chatterjee RN) * 0834 (Given - Provider: Christine Campa, BRANDON) furosemide (LASIX) tablet 20 mg 20 mg, Oral, DAILY, First dose on Mon07/23/22 at 0900, Until Discontinued gabapentin (NEURONTIN) capsule 600 mg 600 mg, Oral, 2 TIMES DAILY, First dose on Mon07/18/22 at 2200, Until Discontinued * 0850 (Given - Provider: Ligia Mattson RN - Comment: approved) * 0100 (Held - Provider: TERRY BERGMAN - Reason: Patient/family refused) * 0812 (Given - Provider: Latoya Chatterjee RN) * 2140 (Given - Provider: TERRY BERGMAN) * 0834 (Given - Provider: Christine Campa RN) * 2100 (Due) heparin (porcine) injection 5,000 Units 5,000 Units, SubCUTAneous, EVERY 8 HOURS SCHEDULED (3 times per day), First dose on Mon07/18/22 at 2200, Until Discontinued, Hold until okay with urology to give heparin * 0600 (Automatically Held - Provider: Lizzette Clay MD) * 1400 (Automatically Held - Provider: Lizzette Clay MD) * 2200 (Automatically Held - Provider: Lizzette Clay MD) * 0600 (Automatically Held - Provider: Lizzette Clay MD) * 1400 (Automatically Held - Provider: Lizzette Clay MD) * 1554 (Unheld by provider - Provider: Tye Walsh MD) * 2141 (Given - Provider: TERRY BERGMAN) * 0550 (Given - Provider: TERRY BERGMAN) * 1355 (Given - Provider: Christine Campa RN) * 2200 (Due) hydrALAZINE (APRESOLINE) tablet 25 mg 25 mg, Oral, EVERY 8 HOURS SCHEDULED (3 times per day), First dose on Mon07/22/22 at 0800, Until Discontinued * 0834 (Given - Provider: Christine Campa RN) * 1355 (Given - Provider: Christine Campa RN) * 2200 (Due) insulin glargine (LANTUS) injection vial 35 Units (CANCELED) 35 Units, SubCUTAneous, 2 TIMES DAILY, First dose (after last modification) on Mon07/20/22 at 0900,Until Discontinued * 0841 (Given - Provider: Ligia Mattson RN) insulin glargine (LANTUS) injection vial 50 Units 50 Units, SubCUTAneous, 2 TIMES DAILY, First dose (after last modification) on Mon07/20/22 at 2100,Until Discontinued * 0100 (Held - Provider: TERRY BERGMAN - Reason: Patient/family refused) * 1030 (Given - Provider: Latoya Chatterjee RN) * 2141 (Given - Provider: TERRY BERGMAN) * 0845 (Given - Provider: Christine Campa RN) * 2100 (Due) insulin lispro (HUMALOG) injection vial 0-16 Units 0-16 Units, SubCUTAneous, 3 TIMES DAILY WITH MEALS, First dose (after last modification) on Mon07/20/22 at 0915, Until Discontinued, High Dose Corrective Algorithm Glucose: Dose: 70-199 No Insulin 200-249 4 Units 250-299 8 Units 300-349 12 Units Over 349 16 Units and notify physician * 0915 (Given - Provider: Ligia Mattson RN - Comment: RN notifed provider) * 1711 (Given - Provider: Brandon Roach RN) * 0938 (Given - Provider: Latoya Chatterjee RN) * 1313 (Given - Provider: Latoya Chatterjee RN) * 1644 (Not Given - Provider: Latoya Chatterjee RN - Reason: Order parameters not met) * 0832 (Not Given - Provider: Christine Campa RN - Reason: Order parameters not met) * 1226 (Not Given - Provider: Christine Campa RN - Reason: Order parameters not met - Comment: BS 164) * 1700 (Due) insulin lispro (HUMALOG) injection vial 0-4 Units 0-4 Units, SubCUTAneous, NIGHTLY, First dose (after last modification) on Mon07/20/22 at 0915, Until Discontinued, If continuous tube feedings/TPN/NPO, give correction dose based on result, no reduction in dose. If eating or bolus tube feeding: Corrective Bedtime Algorithm Glucose: Dose: 70-299No Insulin 300- 349 4 Units Over 349 4 Units and notify physician * 1126 (Not Given - Provider: Ligia Mattson, BRANDON - Reason: Other - Comment: wrong start time - nightly) * 0122 (Not Given - Provider: TERRY BERGMAN - Reason: Order parameters not met) * 2100 (Due) insulin lispro (HUMALOG) injection vial 10 Units (COMPLETED) 10 Units, SubCUTAneous, ONCE, 1 dose, On Mon07/20/22 at 1445, Formulary alternative for regular insulin per P&T protocol. * 1452 (Given - Provider: Ligia Mattson, BRANDON) insulin lispro (HUMALOG) injection vial 5 Units 5 Units, SubCUTAneous, 3 TIMES DAILY WITH MEALS, First dose on Mon07/20/22 at 1200, Until Discontinued * 1132 (Held by provider - Provider: Brooklynn Ferrari MD - Reason: Other) * 1200 (Automatically Held - Provider: Brooklynn Ferrari MD) * 1251 (Unheld by provider - Provider: Brooklynn Ferrari MD) * 1836 (Given - Provider: Brandon Roach RN) * 0940 (Given - Provider: Latoya Chatterjee RN) * 1318 (Given - Provider: Latoya Chatterjee RN) * 1645 (Not Given - Provider: Latoya Chatterjee RN - Reason: Order parameters not met) * 0835 (Given - Provider: Christine Campa RN) * 1228 (Given - Provider: Christine Campa, BRANDON) * 1700 (Due) labetalol (NORMODYNE;TRANDATE) injection 10 mg (COMPLETED) 10 mg, IntraVENous, ONCE, 1 dose, On Mon07/20/22 at 2145 * 2200 (Given - Provider: TERRY BERGMAN) levothyroxine (SYNTHROID) tablet 200 mcg 200 mcg, Oral, DAILY, First dose on Mon07/19/22 at 0700, Until Discontinued, Tube feeding (TF) interaction, obtain physician order to manage, recommend holding TF for 30 minutes before and after dose. * 0843 (Given - Provider: Ligia Mattson RN) * 0812 (Given - Provider: Latoya Chatterjee RN) * 0834 (Given - Provider: Christine Campa, BRANDON) lidocaine 1 % injection 5 mL 5 mL, IntraDERmal, ONCE, 1 dose, On Mon07/21/22 at 1615 * 1134 (Not Given - Provider: Christine Campa RN - Reason: Other) sodium chloride flush 0.9 % injection 5-40 mL 5-40 mL, IntraVENous, EVERY 12 HOURS SCHEDULED (2 times per day), First dose on Mon07/21/22 at 2100, Until Discontinued, For Line Patency: Peripheral IV = 5 mL; Midline or Central Line = 10 mL/lumen.If following IV push medication, administer flush at same rate as the IV push. Flush volume is determined by type of infusion therapy being given. For non-viscous solutions use: Peripheral IV = 5 mL Midline or Central Line = 10 mL/lumen For viscous solutions (i.e. blood components, parenteral nutrition, contrast media, or after obtaining blood sample) use: Peripheral IV = 10 mL Midline or CentralLine = 20 mL/lumen * 0122 (Canceled Entry - Provider: TERRY BERGMAN) * 0833 (Given - Provider: Christine Campa RN) * 2100 (Due) tigecycline (TYGACIL) 100 mg in sodium chloride 0.9 % 100 mL IVPB (COMPLETED) 100 mg, IntraVENous, at 100 mL/hr, Administer over 60 Minutes, ONCE, On Mon07/20/22 at 1645, For 1 dose * 1721 (New Bag - Provider: Brandon Roach, BRANDON) * 1821 (Stopped - Provider: TERRY BERGMAN) * 1840 (Stopped - Provider: Brandon Roach, BRANDON) tigecycline (TYGACIL) 50 mg in sodium chloride 0.9 % 100 mL IVPB 50 mg, IntraVENous, at 100 mL/hr, Administer over 60 Minutes, EVERY 12 HOURS, First dose on Mon07/21/22 at 0445 * 0532 (New Bag - Provider: TERRY BERGMAN) * 0533 (Rate/Dose Verify - Provider: TERRY BERGMAN) * 0609 (Rate/Dose Verify - Provider: TERRY BERGMAN) * 0639 (Stopped - Provider: Latoya Chatterjee RN) * 0819 (Stopped - Provider: Latoya Chatterjee RN) * 1705 (New Bag - Provider: Latoya Chatterjee RN) * 1805 (Stopped - Provider: Latoya Chatterjee RN) * 0601 (New Bag - Provider: TERRY BERGMAN) * 0701 (Stopped - Provider: Christine Campa, RN) * 1614 (Not Given - Provider: Christine Campa RN - Reason: Other - Comment: per Keo Stefanagaria) tobramycin (NEBCIN) 200 mg in dextrose 5 % 100 mL IVPB (COMPLETED) 200 mg, IntraVENous, ONCE, 1 dose, On Mon07/20/22 at 1600, Antimicrobial Indications: Urinary TractInfection, UTI duration of therapy: Other, Other Urinary Tract Infection Duration: 1 day * 1658 (New Bag - Provider: Rosette Kelley RN) * 1728 (Stopped - Provider: Rosette Kelley RN) Medication Order07/20//// 0.9 % sodium chloride infusion (CANCELED) IntraVENous, at 125 mL/hr, CONTINUOUS, Starting on Mon07/18/22 at 1830 * 0039 (Rate/Dose Change - Provider: Alexsandra Mckinley RN) * 0047 (Stopped - Provider: Alexsandra Mckinley RN) * 0047 (New Bag - Provider: Alexsandra Mckinley RN) * 0751 (New Bag - Provider: Ligia Mattson, BRANDON) * 0856 (Rate/Dose Change - Provider: Ligia Mattson, BRANDON) * 0900 (Rate/Dose Verify - Provider: TERRY BERGMAN) * 1621 (Rate/Dose Verify - Provider: TERRY BERGMAN) * 2027 (Stopped - Provider: TERRY BERGMAN) * 2028 (Stopped - Provider: TERRY BERGMAN) sodium bicarbonate 75 mEq in sodium chloride 0.45 % 1,000 mL infusion (CANCELED) IntraVENous, at 50 mL/hr, CONTINUOUS, Starting on Mon07/20/22 at 1730 * 2028 (New Bag - Provider: TERRY BERGMAN) * 0609 (Rate/Dose Verify - Provider: TERRY BERGMAN) * 1107 (Paused - Provider: Latoya Chatterjee RN) * 1643 (Rate/Dose Change - Provider: Latoya Chatterjee RN) * 1644 (Rate/Dose Verify - Provider: Latoya Chatterjee RN) * 1818 (Rate/Dose Verify - Provider: Latoya Chatterjee RN) * 0038 (Rate/Dose Verify - Provider: TERRY BERGMAN) * 0312 (New Bag - Provider: TERRY BERGMAN) Medication Order07/20/// 0.9 % sodium chloride infusion (CANCELED) IntraVENous, at 5-250 mL/hr, PRN, if patient receiving piggyback infusions and maintenance fluids are not ordered OR KVO fluids to protect IV site / prevent frequent line interruptions/ long duration, Starting on 07/18/22 at 1814, For piggyback infusion, administer at [...] or less into rate field of order. * 0855 (Rate/Dose Change - Provider: TERRY BERGMAN) * 1032 (Paused - Provider: TERRY BERGMAN) * 1720 (Rate/Dose Change - Provider: TERRY BERGMAN) * 202 (Stopped - Provider: TERRY BERGMAN) * 0532 (New Bag - Provider: TERRY BERGMAN) * 0533 (Stopped - Provider: TERRY BERGMAN) 0.9 % sodium chloride infusion 25 mL, IntraVENous, at 100 mL/hr, PRN, If patient receiving piggyback infusions without ordered maintenance IV fluids or with frequent/long duration piggyback infusions, Starting on Lizy 07/21/22 at 1553, Administer at the same rate as the piggyback being infused. * 0600 (New Bag - Provider: TERRY BERGMAN) * 0720 (Stopped - Provider: Christine Campa RN) acetaminophen (TYLENOL) suppository 650 mg(Linked Group 1) 650 mg, Rectal, EVERY 6 HOURS PRN, Starting on Mon07/18/22 at 1814, Until Discontinued, Pain Mild (1-3), Fever, For temp greater than 100.4 F (38 C), Administer if oral route cannot be used. * 0513 (See Alternative - Provider: Alexsandra Mckinley RN) * 1235 (See Alternative - Provider: Ligia Mattson, BRANDON) * 2355 (See Alternative - Provider: TERRY BERGMAN) acetaminophen (TYLENOL) tablet 650 mg(Linked Group 1) 650 mg, Oral, EVERY 6 HOURS PRN, Starting on Mon07/18/22 at 1814, Until Discontinued, Pain Mild (1-3), Fever, For temp greater than 100.4 F (38 C), Maximum dose of acetaminophen is 4000 mg from all sources in 24 hours. * 0513 (Given - Provider: Alexsandra Mckinley RN) * 1235 (Given - Provider: Ligia Mattson RN) * 2355 (Given - Provider: TERRY BERGMAN) dextrose 10 [...] Mon07/18/22 at 1814, Repeat blood glucose in 15minutes. If blood glucose remains LESS THAN 70 mg/dL, repeat treatment and recheck blood glucose in15 minutes x 2. If using glycemic management system, dose as instructed per system. If blood glucose remains LESS THAN 70 mg/dL after 2 intravenous boluses start dextrose 10% at 100 mL/hour and notify provider. fentaNYL (SUBLIMAZE) injection 50 mcg (CANCELED) 50 mcg, IntraVENous, EVERY 4 HOURS PRN, Starting on Mon07/18/22 at 2123, Until Mon07/20/22 at 1026,Pain Severe (7-10), If oral and IV narcotics ordered, use oral first and only use IV if oral is ineffective or cannot take oral. Do Not give oral and IV within 1 hour of each other unless specifically ordered. * 0423 (Given - Provider: Alexsandra Mckinley RN) fentaNYL (SUBLIMAZE) injection 50 mcg (CANCELED) 50 mcg, IntraVENous, EVERY 2 HOURS PRN, Starting on Mon07/20/22 at 1030, Until Mon07/20/22 at 1345,Pain Severe (7-10), If oral and IV narcotics ordered, use oral first and only use IV if oral is ineffective or cannot take oral. Do Not give oral and IV within 1 hour of each other unless specifically ordered. * 1050 (Given - Provider: Ligia Mattson RN) * 1250 (Given - Provider: Ligia Mattson RN) fentaNYL (SUBLIMAZE) injection 50 mcg 50 mcg, IntraVENous, EVERY 1 HOUR PRN, Starting on Mon07/20/22 at 1400, Until Discontinued, Pain Severe (7-10), If oral and IV narcotics ordered, use oral first and only use IV if oral is ineffectiveor cannot take oral. Do Not give oral and IV within 1 hour of each other unless specifically ordered. * 1821 (Given - Provider: Brandon Roach RN) * 1026 (Given - Provider: Latoya Chatterjee RN) glucagon (rDNA) injection 1 mg 1 mg, SubCUTAneous, PRN, Starting on Mon07/18/22 at 1814, Until Discontinued, Low blood sugar, Blood glucose LESS THAN 70 mg/dL and patient NOT ALERT or NPO and does not have IV access., After administration, attempt intravenous access and start dextrose 10% at 100 mL/hr. Repeat blood glucose in 15minutes x 2 and notify provider. glucose chewable tablet 16 g 16 g (4 tablet), Oral, PRN, Starting on Mon07/18/22 at 1814, Until Discontinued, Low blood sugar, If blood glucose is LESS THAN 70 mg/dL and patient is alert and tolerating oral. Give 4 tablets (16g)Repeat blood glucose in 15 minutes. If blood [...] at 1346, Until Discontinued, Pain Severe (7-10) * 1552 (Given - Provider: Ligia Mattson RN) * 0812 (Given - Provider: Latoya Chatterjee RN) * 2141 (Given - Provider: TERRY BERGMAN) oxyCODONE-acetaminophen (PERCOCET) 5-325 MG per tablet 2 tablet (CANCELED) Mg/kg dosing is based on the oxycodone component., 2 tablet, Oral, EVERY 4 HOURS PRN, Starting on Mon07/18/22 at 2121, Until Mon07/20/22 at 1026, Pain Severe (7-10), Maximum dose of acetaminophen is 4000 mg from all sources in 24 hours. * 0817 (Given - Provider: Ligia Mattson RN) [...] Midline or Central Line = 20 mL/lumen * 0423 (Given - Provider: Alexsandra Mckinley RN) sodium chloride flush 0.9 % injection 5-40 mL 5-40 mL, IntraVENous, PRN, Starting on Lizy 07/21/22 at 1553, Until Discontinued, Line Care, For LinePatency: Peripheral IV = 5 mL; Midline or Central Line = 10 mL/lumen. If following IV push medication, administer flush at same rate as the IV push. Flush volume is determined by type of infusion therapy being given. For non-viscous solutions use: Peripheral IV = 5 mL Midline or Central Line = 10 mL /lumen For viscous solutions (i.e. blood components, parenteral nutrition, contrast media, or afterobtaining blood sample) use: Peripheral IV = 10 mL Midline or Central Line = 20 mL/lumen Order Group 1: acetaminophen (TYLENOL) tablet 650 [...]
Administer if oral route cannot be used.
Medication Order/ aspirin EC tablet 81 mg 81 mg, Oral, DAILY, First dose on Mon07/26/22 at 0900, Until Discontinued, Do not crush or break. * 1217 (Given - Provider: Tesha Lake, RN) atorvastatin (LIPITOR) tablet 80 mg 80 mg, Oral, DAILY, First dose on Mon07/26/22 at 0900, Until Discontinued * 2100 (Due - Provider: Tesha Boggs RN) ciprofloxacin (CIPRO) tablet 500 mg 500 mg, Oral, 2 TIMES DAILY, First dose on Mon07/25/22 at 2300, Until Discontinued, Antimicrobial Indications: Urinary Tract Infection, UTI duration of therapy: Other, Do not take with dairy productsor calcium-fortified juices. Tube feeding (TF) interaction, obtain physician order to manage. Recommend holding TF for 1 hr before and 1 hr after dose. Due to decreased absorption do not give by J tube. * 0007 (Given - Provider: Coretta Scott RN) * 1217 (Given - Provider: Tesha Boggs RN) * 2100 (Due) DULoxetine (CYMBALTA) extended release capsule 60 mg 60 mg, Oral, DAILY, First dose on Mon07/26/22 at 0900, Until Discontinued, Do not crush or break. May add contents of capsule to apple juice or apple sauce, but not chocolate. * 1216 (Given - Provider: Tesha Boggs RN) furosemide (LASIX) tablet 20 mg 20 mg, Oral, DAILY, First dose on Mon07/26/22 at 0900, Until Discontinued * 1216 (Given - Provider: Tesha Boggs RN) gabapentin (NEURONTIN) tablet 600 mg 600 mg, Oral, 3 TIMES DAILY, First dose on Mon07/25/22 at 2300, Until Discontinued * 0008 (Given - Provider: Coretta Scott RN) * 0900 (Not Given - Provider: Tesha Boggs RN - Reason: Patient not available - Comment: pt not arrived to floor) * 1216 (Given - Provider: Tesha Boggs RN) * 2100 (Due) hydrALAZINE (APRESOLINE) tablet 25 mg 25 mg, Oral, EVERY 8 HOURS SCHEDULED (3 times per day), First dose on Mon07/25/22 at 2300, Until Discontinued * 0006 (Given - Provider: Coretta Scott RN) * 0900 (Not Given - Provider: Tesha Boggs RN - Reason: Patient not available - Comment: PT not arrived to floor yet) * 1217 (Given - Provider: Tesha Boggs RN) * 2200 (Due) insulin glargine (LANTUS) injection vial 73 Units 73 Units, SubCUTAneous, NIGHTLY, First dose on Mon07/26/22 at 2100, Until Discontinued * 2100 (Due) insulin lispro (HUMALOG) injection vial 13 Units 13 Units, SubCUTAneous, 3 TIMES DAILY WITH MEALS, First dose on Mon07/26/22 at 1315, Until Discontinued * 1315 (Due) * 1700 (Due) ketorolac (TORADOL) injection 30 mg (COMPLETED) [...] not administer for more than 5 days. * 0029 (Given - Provider: Coretta Scott RN) ketorolac (TORADOL) injection 30 [...] not administer for more than 5 days. * 1215 (Not Given - Provider: Tesha Boggs RN - Reason: Patient/family refused) * 1730 (Due) * 2330 (Due) levothyroxine (SYNTHROID) tablet 200 mcg 200 mcg, Oral, DAILY, First dose on Mon07/26/22 at 0700, Until Discontinued, Tube feeding (TF) interaction, obtain physician order to manage, recommend holding TF for 30 minutes before and after dose. * 1213 (Not Given - Provider: Tesha Boggs RN - Reason: Patient/family refused) losartan (COZAAR) tablet 100 mg 100 mg, Oral, DAILY, First dose on Mon07/26/22 at 0900, Until Discontinued * 1216 (Given - Provider: Tesha Boggs RN) metFORMIN (GLUCOPHAGE) tablet 500 mg 500 mg, Oral, 2 TIMES DAILY WITH MEALS, First dose on Mon07/26/22 at 1700, Until Discontinued * 1700 (Due) sodium chloride flush 0.9 % injection 5-40 mL 5-40 mL, IntraVENous, EVERY 12 HOURS SCHEDULED (2 times per day), First dose on Mon07/25/22 at 2100, Until Discontinued, For Line Patency: Peripheral IV = 5 mL; Midline or Central Line = 10 mL/lumen.If following IV push medication, administer flush at same rate as the IV push. Flush volume is determined by type of infusion therapy being given. For non-viscous solutions use: Peripheral IV = 5 mL Midline or Central Line = 10 mL/lumen For viscous solutions (i.e. blood components, parenteral nutrition, contrast media, or after obtaining blood sample) use: Peripheral IV = 10 mL Midline or CentralLine = 20 mL/lumen * 0031 (Given - Provider: Ekaterina Melendez RN) * 09 (Due) * 2100 (Due) Medication Order// 0.9 % sodium chloride infusion 25 mL, [...] Mon07/26/22 at 1229, Repeat blood glucose in 15minutes. If blood glucose remains LESS THAN 70 mg/dL, repeat treatment and recheck blood glucose in15 minutes x 2. If using glycemic management system, dose as instructed per system. If blood glucose remains LESS THAN 70 mg/dL after 2 intravenous boluses start dextrose 10% at 100 mL/hour and notify provider. fentaNYL (SUBLIMAZE) injection (COMPLETED) ONCE PRN, 1 dose, Starting on Mon07/26/22 at 1008, Until Mon07/26/22 at 1008 * 1008 (Given - Provider: Sona Ambriz RN - Comment: PROCEDURAL PAIN) glucagon (rDNA) injection 1 mg 1 mg, SubCUTAneous, PRN, Starting on Mon07/26/22 at 1229, Until Discontinued, Low blood sugar, Blood glucose LESS THAN 70 mg/dL and patient NOT ALERT or NPO and does not have IV access., After administration, attempt intravenous access and start dextrose 10% at 100 mL/hr. Repeat blood glucose in 15minutes x 2 and notify provider. glucose chewable tablet 16 g 16 g (4 tablet), Oral, PRN, Starting on Mon07/26/22 at 1229, Until Discontinued, Low blood sugar, If blood glucose is LESS THAN 70 mg/dL and patient is alert and tolerating oral. Give 4 tablets (16g)Repeat blood glucose in 15 minutes. If blood glucose is LESS THAN 70 mg/dL, repeat treatment and recheck blood glucose in 15 minutes x 2. If blood glucose remains LESS THAN 70 mg/dL, notify provider. iopamidol (ISOVUE-370) 76 % injection 50 mL (COMPLETED) 50 mL, IntraVENous, IMG ONCE PRN, 1 dose, Starting on Mon07/26/22 at 1030, Until Mon07/26/22 at 1031, Other * 1031 (Given - Provider: Cinthia Brownlee) magnesium oxide (MAG-OX) tablet 400 mg 400 mg, Oral, 2 TIMES DAILY PRN, Starting on Mon07/25/22 at 2253, Until Discontinued, for low Mag * 1215 (Given - Provider: Tesha Boggs, BRANDON) ondansetron (ZOFRAN) injection 4 mg 4 mg, IntraVENous, EVERY 4 HOURS PRN, Starting on Mon07/25/22 at 2002, Until Discontinued, Nausea, Vomiting oxyCODONE-acetaminophen (PERCOCET) 5-325 MG per tablet 1 tablet Mg/kg dosing is based on the oxycodone component., 1 tablet, Oral, EVERY 4 HOURS PRN, Starting on Mon07/26/22 at 1054, Until Discontinued, Pain Severe (7-10), Maximum dose of acetaminophen is 4000 mgfrom all sources in 24 hours. * 1101 (Given - Provider: Tesha Boggs, BRANDON) polyethylene glycol (GLYCOLAX) packet 17 g [...] use in patients with CrCl less than 30mL/min. potassium chloride 10 mEq/100 mL IVPB (Peripheral Line)(Linked Group 3) For doses greater than 10 mEq, change frequency to every one hour for x number of doses., 10 mEq,IntraVENous, PRN, Starting on Mon07/25/22 at 2002, Until [...] For viscous solutions (i.e. blood components, parenteral nutrition,contrast media, or after obtaining blood sample) use: Peripheral IV = 10 mL Midline or Central Line= 20 mL/lumen Order Group 1: acetaminophen (TYLENOL) tablet 650 [...] patient unable to tolerate tablet. K Lab &a mp;nbsp; Replacement Action&amp ;nbsp;3.1 to 3.5 40 mEq ORAL x 1 Under 3.1 Refer to IV replacement zacarias col Recheck K level in AM. Protocol not for use in patients with CrCl less than 30 mL/min.
Or potassium bicarb-citric acid (EFFER-K) effervescent tablet 40 mEqJump to med 40 mEq, Oral, PRN, Starting on Mon07/25/22 at 2002, Until Discontinued, Per Potassium Replacement Protocol
Administer as alternative if patient unable to tolerate oral tablet. K Lab & amp;nbsp; Replacement Action 3.1 to 3.5 &am p;nbsp; 40 mEq ORAL x 1 Under 3.1 &nbs p; Refer to IV replacement protocol Recheck K [...] Starting on Mon07/25/22 at 2002, Until Discontinued, at100 mL/hr, Potassium Replacement
K Lab Replacement Action 2.7to 3.0 10 mEq IVPB x 6 doses (60 mEq Total) Under 2.7 CALL PROVIDER and administer 10 mEq IVPB x 6 doses (60 mEq Total) Infuse at 10 mEq/hr. Repeat Potassium lab 1 hour after final administration. Protocol not for use in patients with CrCl less than 30 mL/min.
Medication Order// amLODIPine (Norvasc) tablet 10 mg 10 mg, oral, Daily, First dose on Mon08/29/25 at 0945 * 0836 (Given - Provider: Ny Dowling RN) * 0825 (Given - Provider: Wen Pérez RN) * 0833 (Given - Provider: Wen Pérez RN) apixaban (Eliquis) tablet 5 mg 5 mg, oral, 2 times daily, First dose on Mon09/02/25 at 2100 * 2019 (Given - Provider: Rush Whitley RN) * 0833 (Given - Provider: Wen Pérez RN) * 2100 (Due) atorvastatin (Lipitor) tablet 80 mg 80 mg, oral, Nightly, First dose (after last modification) on Mon08/27/25 at 2100 * 2117 (Given - Provider: Federica Ansari RN) * 2018 (Given - Provider: Rush Whitley, BRANDON) * 2099 (Due) cholecalciferol (Vitamin D-3) tablet 50 mcg 50 mcg, oral, Daily, First dose on Mon08/27/25 at 0900 * 0836 (Given - Provider: Ny Dowling RN) * 0825 (Given - Provider: Wen Pérez RN) * 0833 (Given - Provider: Wen Pérez RN) ezetimibe (Zetia) tablet 10 mg 10 mg, oral, Nightly, First dose on Mon08/30/25 at 2100 * 2118 (Given - Provider: Federica Ansari RN) * 2018 (Given - Provider: Rush Whitley RN) * 2099 (Due) gabapentin (Neurontin) capsule 600 mg 600 mg, oral, 2 times daily, First dose on Mon08/26/25 at 2245, Capsules may be opened and sprinkled on food (eg, applesauce, orange juice, pudding, On hold since Mon08/27/2025 at 0605 until manually unheld * 0900 (Not Given - Provider: Ny Dowling RN - Reason: Order parameters not met) * 2100 (Not Given - Provider: Federica Ansari RN - Reason: See Provider Order) * 0900 (Canceled Entry - Provider: Wen Pérez RN - Comment: held by provider) * 2100 (Dose Auto Held - Provider: David Cortes MD) * 0900 (Canceled Entry - Provider: Wen Pérez RN - Comment: held by provider) * 2100 (Dose Auto Held - Provider: David Cortes MD) hydrALAZINE (Apresoline) tablet 25 mg 25 mg, oral, 3 times daily, First dose on Mon09/03/25 at 1200 * 1300 (Due - Provider: Wen Pérez RN) * 2100 (Due) insulin glargine (Lantus) injection 30 Units 30 Units, subcutaneous, Every morning, First dose on Mon08/27/25 at 0900, Do not hold basal insulin, contact provider if there is any concern for hypoglycemia. * 0836 (Given - Provider: Ny Dowling RN) * 0825 (Given - Provider: Wen Pérez RN) * 0834 (Given - Provider: Wen Pérez RN) insulin lispro injection 0-5 Units 0-5 Units, subcutaneous, 3 times daily before meals, First dose (after last modification) on Mon08/29/25 at 0700, Insulin Lispro Corrective Scale #1 Hypoglycemia protocol Call LIP unit(s) if Blood Glucose is between 0 - 70 mg/dL 0 unit(s) if Blood glucose is between 71-150 1 unit(s) if Blood glucose is between 151-200 2 unit(s) if Blood glucose is between 201-250 3 unit(s) if Blood glucose is between 251-300 4 unit(s) if Blood glucose is between 301-350 5 unit(s) if Blood glucose is between 351-400 If blood glucose is greater than 400 mg/dL, give max insulin per sliding scale AND then contact provider. * 0838 (Given - Provider: Ny Dowling RN) * 1326 (Given - Provider: Ny Dowling RN) * 1723 (Given - Provider: Ny Dowling RN) * 0825 (Given - Provider: Wen Pérez RN) * 1224 (Given - Provider: Wen Pérez RN) * 1705 (Given - Provider: Wen Pérez RN) * 0834 (Given - Provider: Wen Pérez RN) * 1206 (Not Given - Provider: Wen Pérez RN - Reason: Patient/family refused - Comment: pt states she will take at home) * 1700 (Due - Provider: Wen Pérze RN) levothyroxine (Synthroid, Levoxyl) tablet 125 mcg 125 mcg, oral, Daily, First dose on Mon08/27/25 at 0600, Enteral feedings are held 1 hour pre and post dose. * 0648 (Given - Provider: Breanna Mccormack RN) * 0729 (Given - Provider: Wen Pérez RN) * 0519 (Given - Provider: Rush Whitley RN) melatonin tablet 3 mg 3 mg, oral, Daily, First dose on Mon08/27/25 at 0300 * 2118 (Given - Provider: Federica Ansari RN) * 2019 (Given - Provider: Rush Whitley RN) * 2100 (Due) metoprolol tartrate (Lopressor) tablet 25 mg 25 mg, oral, 2 times daily, First dose on Mon08/29/25 at 0945, On hold since Mon08/30/2025 at 1408 until manually unheld * 0900 (Not Given - Provider: Ny Dowling RN - Reason: Order parameters not met) * 2100 (Not Given - Provider: Federica Ansari RN - Reason: See Provider Order) * 09 (Canceled Entry - Provider: Wen Pérez RN - Comment: held by provider) * 2100 (Dose Auto Held - Provider: JOANN Weathers) * 899 (Canceled Entry - Provider: Wen Pérez RN - Comment: held by provider) * 2100 (Dose Auto Held - Provider: JOANN Weathers) perflutren lipid microspheres (Definity) injection 0.5-10 mL of dilution 0.5-10 mL of dilution, intravenous, Once in imaging, Starting on Mon08/28/25 at 0859, For 1 dose, Contrast - for use by imaging provider only. Prior to administration, Definity product must be activated. First, bring vial to room temperature. Then, shake vial for 45 seconds. Do not use if the 45 second activation cycle has not been completed. Following activation, the product will appear as a milky white suspension and may be used immediately. If not used within 5 minutes of activation, re-suspend by inverting and shaking the vial for 10 seconds. Discard unused product. Administration: Dilute 1.3 mL of activated DEFINITY with 8.7 mL of normal saline in a 10 mL syringe. Inject 0.5 mL of dilu joao DEFINITY when notified the images/film are unclear to enhance view of Left Ventricular borders.Repeat 0.5 mL of DEFINITY until clear images are obtained, not to exceed 10 mLs. Once images are obtained or limit of medication is reached, flush line with 10 mL of Normal Saline. pioglitazone (Actos) tablet 15 mg 15 mg, oral, Daily, First dose on Mon08/27/25 at 0900, On hold since Mon08/26/2025 at 2224 until manually unheld * 0900 (Not Given - Provider: Ny Dowling RN - Reason: Order parameters not met) * 0900 (Canceled Entry - Provider: Wen Pérez RN - Comment: held by provider) * 0900 (Canceled Entry - Provider: Wen Pérez RN - Comment: held by provider) potassium chloride CR (Klor-Con M20) ER tablet 40 mEq (COMPLETED) 40 mEq, oral, Once, On Mon09/01/25 at 1715, For 1 dose, Best given with food and plenty of water to minimize gastric irritation. Do not crush or chew. * 1723 (Given - Provider: Ny Dowling RN) sulfamethoxazole-trimethoprim (Bactrim DS) 800-160 mg per tablet 1 tablet 1 tablet, oral, Every 12 hours scheduled, First dose on Mon09/01/25 at 2100, For 3 days, SuspectedIndication (Select all that apply): Urinary Tract Infection, Type of Therapy: Definitive, Based on Culture, Type of Urinary Tract Infection: Uncomplicated, Indications: Urinary Tract Infection * 2117 (Given - Provider: Federica Ansari RN) * 0825 (Given - Provider: Wen Pérez, BRANDON) * 2018 (Given - Provider: Rush Whitley, BRANDON) * 0833 (Given - Provider: Wen Pérez, BRANDON) * 2100 (Due) ticagrelor (Brilinta) tablet 90 mg(Linked Group 1) 90 mg, oral, 2 times daily, First dose on Mon08/28/25 at 0900, For 365 days * 0836 (Given - Provider: Ny Dowling RN) * 2117 (Given - Provider: Federica Ansari, BRANDON) * 0825 (Given - Provider: Wen Pérez, BRANDON) * 2019 (Given - Provider: Rush Whitley, RN) * 0833 (Given - Provider: Wen Pérez, BRANDON) * 2100 (Due) warfarin (Coumadin) tablet 5 mg (CANCELED) 5 mg, oral, Daily, First dose (after last modification) on Mon09/01/25 at 1800, For 2 days, Re-evaluate and re-order based on lab results. Enteral feedings are held 1 hour pre and post dose. For patients receiving warfarin via a feeding tube, hold enteral feeds for at least 1 hour before and 1 hour after warfarin administration. Flush the feeding tube with water before and after warfarin administration as well., Indication: Venous thromboembolism, History: New start, On hold since Mon09/02/2025 at 1452 until manually unheld * 1723 (Given - Provider: Ny Dowling RN) * 1452 (Held by provider - Provider: JOANN Alvarez - Reason: Other) * 1535 (Unheld by provider - Provider: JOANN Alvarez) * 1700 (Canceled Entry - Provider: Wen Pérez RN - Comment: held by provider) Medication Order heparin 25,000 Units in sodium chloride 0.9% 250 mL (100 Units/mL) infusion (compounded) (CANCELED) 12 Units/kg/hr 117 kg (14.04 mL/hr), intravenous, Continuous, Starting on Mon08/31/25 at 1615, Initial Dose: 12 units/kg/hr --> Use heparin calculator for units/hr rate Maximum Initial Dose: 1000units/hr Recheck Heparin Assay, UFH level 4 hours after any rate change, or per protocol. TitrationTable: Heparin Assay, UFH < 0.1: Bolus 4,000 units, INCREASE rate by 300 units/hr. Heparin Assay, UFH 0.1 to 0.2: Bolus 2,000 units. INCREASE rate by 200 units/hr. Heparin Assay, UFH 0.3 to 0.6: (THERAPEUTIC) DO NOT CHANGE Infusion Rate. No Bolus. Heparin Assay, UFH 0.7 to 1: No Bolus. DECREASE rate by 200 unit/hour. Heparin Assay, UFH 1.1 to 1.2: No Bolus. HOLD heparin infusion for 1 hour, then DECREASE rate by 200 units/hour. Heparin Assay, UFH > 1.2: No Bolus. HOLD heparin infusion for1 hour, then recheck heparin assay: *If repeat is > 0.6, continue to HOLD INFUSION. Confirm lastdraw was performed correctly (pump was paused for a minimum of 2 minutes, sample NOT drawn off line/lumen where medication was infusing) -Contact provider for further orders. *If repeat is <= 0.6,REDUCE previous infusion rate by 300 units/hour and restart infusion. -Recheck Heparin Assay, UFH in 4 hours after dose reduction. -Resume nomogram Resuming Heparin when interrupted or held due to a test/procedure: - If it was discontinued/held for < 4 hours: restart at previous therapeutic dose. If patient has not had a therapeutic dose, contact provider for orders. - If discontinued/held > 4 hours, contact provider for orders. Notify provider of last previous therapeutic dose, provider to place new orders (+/- bolus order). Provider to order any additional labs or monitoring, if needed. * 0736 (Handoff - Provider: Breanna Mccormack, RN) * 0848 (New Bag - Provider: Ny Dowling, BRANDON) * 0850 (Rate/Dose Verify - Provider: Ny Dowling RN - Comment: assay therapeutic) * 0324 (New Bag - Provider: Federica Ansari, RN) * 0707 (Handoff - Provider: Wen Pérez, BRANDON) * 1847 (New Bag - Provider: Wen Pérez, BRANDON) * 2201 (Stopped - Provider: Rush Whitley RN - Comment: [Order ends at this time. Document the following action when infusion is complete: Stopped]) Medication Order// acetaminophen (Tylenol) tablet 650 mg 650 mg, oral, Every 6 hours PRN, pain mild (1-3), first line, Starting on Mon08/26/25 at 2221, If ordered PRN for pain, nurse is permitted to administer this medication for higher pain scores based on patient preference? Yes dextrose 50 % injection 12.5 g 12.5 g, intravenous, Every 15 min PRN, For blood glucose 41 to 70 mg/dL, Starting on Mon08/27/25 at 0941, May repeat until blood glucose level reaches 100 mg/dL or greater. Push 2 - 3 mL/minute if patient has secure IV access. dextrose 50 % injection 25 g 25 g, intravenous, Every 15 min PRN, For blood glucose less than or equal to 40 mg/dL, Starting on Mon08/27/25 at 0941, May repeat until blood glucose level reaches 100 mg/dL or greater. Push 2 - 3 mL/minute if patient has secure IV access. glucagon (Glucagen) injection 1 mg 1 mg, intramuscular, Every 15 min PRN, blood glucose less than or equal to 40 mg/dL - see comments,For blood glucose less than or equal to 40 mg/dL and no IV access, Starting on Mon08/27/25 at 0941, Give until blood glucose is 100 mg/dL or greater. If patient DOES NOT HAVE secure IV access & patient is unconscious, NPO or is unable to eat or drink. glucagon (Glucagen) injection 1 mg 1 mg, intramuscular, Every 15 min PRN, blood glucose 41 to 70 mg/dL - see comments, For blood glucose 41 to 70 mg/dL and no IV access, Starting on Mon08/27/25 at 0941, Give until blood glucose is 100 mg/dL or greater. If patient DOES NOT HAVE secure IV access & patient is unconscious, NPO or is unable to eat or drink. ondansetron (Zofran) injection 4 mg(Linked Group 2) 4 mg, intravenous, Every 8 hours PRN, nausea/vomiting, first line, Starting on Mon08/26/25 at 2223, Give IV if patient is unable to take orally. When administering via IV Push, administer over 3-5 minutes. ondansetron (Zofran) tablet 4 mg(Linked Group 2) 4 mg, oral, Every 8 hours PRN, nausea/vomiting, first line, Starting on Mon08/26/25 at 2223 oxyCODONE (Roxicodone) immediate release tablet 5 mg 5 mg, oral, Every 6 hours PRN, pain moderate (4-6), first line, Starting on Mon08/26/25 at 2222, If ordered PRN for pain, nurse is permitted to administer this medication for higher pain scores based on patient preference? Yes * 1540 (Given - Provider: Ny Dowling RN) Order Group 1: ticagrelor (Brilinta) tablet 180 mg (COMPLETED) 180 mg, oral, Once, On Mon08/27/25 at 1930, For 1 dose Followed by ticagrelor (Brilinta) tablet 90 mgJump to med 90 mg, oral, 2 times daily, First dose on Mon08/28/25 at 0900, For 365 days Group 2: ondansetron (Zofran) tablet 4 mgJump to med 4 mg, oral, Every 8 hours PRN, nausea/vomiting, first line, Starting on Mon08/26/25 at 2223 Or ondansetron (Zofran) injection 4 mgJump to med 4 mg, intravenous, Every 8 hours PRN, nausea/vomiting, first line, Starting on Mon08/26/25 at 2223, Give IV if patient is unable to take orally. When administering via IV Push, administer over 3-5 minutes. Care Teams (unrecognized sec tion and content) Team MemberRelationshipSpecialtyStart DateEnd Date Ricardo Ramos MD [address] [place] [id number] PCP - [facility]07/22/22Team MemberRelationshipSpecialtyStart End Ricardo Ramos MD [address] [place] [id number] PCP - [facility]07/22/22 Team Status: Active Member Role/Relationship Status Dates Ricardo Ramos MD Primary Care Provider Active Team Status: Active Member Role/Relationship Status Dates Ricardo Ramos MD Primary Care Provider Active Start: August 25, 2025 Rafael Perez ProviderActiveStart: August 25, 2025 Demarco Last MDOther ProviderActiveStart: August 25, 2025 Neela Maki ProviderActiveStart: August 25, 2025 Reid Carrillo MDOther ProviderActiveStart: August 25, 2025 Cynthia Pearce RNOther ProviderActiveStart: August 25, 2025 Geno Menon MDOther ProviderActiveStart: August 25, 2025 Calixto See ProviderActiveStart: August 25, 2025 Aime Cee MDOther ProviderActiveStart: August 25, 2025 Goals (unrecognized section and content) Goals may be documented in a n alternate section FOR RECORDS PERTAINING TO PATIENTS WHO ARE [...] BE BASED ON THE PRIMARY CLINICAL RECORDS. [email or web address] [email or web address] provides no warranty or guarantee of the accuracy or completeness of information in this document.
[2025-10-06 11:49] LABS: Alanine Aminotransferase 16 U/L (14-59); Albumin Globulin Ratio 0.6; Albumin Level 2.7 g/dL (3.4-5.0); Alkaline Phosphatase 102 U/L (46-116); Anion Gap 16.5; Aspartate Amino Transferase 19 U/L (15-37); Blood Urea Nitrogen 26.0 mg/dL (7.0-18.0); Calcium 9.3 mg/dL (8.5-10.1); Carbon Dioxide 22.5 mmol/L (21.0-32.0); Chloride 102 mmol/L (98-107); Estimated GFR (African America 37 (>=60 mL/min/1.73m^2); Estimated GFR (Non-African Ame 31 (>=60 mL/min/1.73m^2); Free T3 1.59 pg/mL (2.18-3.98); Globulin 4.7 g/dL; Glucose 77 mg/dL (74-106); Potassium 4.0 mmol/L (3.5-5.1); Sodium 137 mmol/L (136-145); Thyroid Stimulating Hormone 1.478 uIU/mL (0.358-3.740); Total Protein 7.4 g/dL (6.4-8.2)
== END 2025-10-06 10:54 | disposition home or self-care (01) ==
PROVIDERS: PCP Family Medicine; Visit Provider Family Medicine
DX: R60.0 Localized edema (principal); E03.9 Hypothyroidism, unspecified; E11.9 Type 2 diabetes mellitus without complications; I11.0 Hypertensive heart disease with heart failure; I50.30 Unspecified diastolic (congestive) heart failure; R10.31 Right lower quadrant pain; I77.77 Dissection of artery of lower extremity
CPT/HCPCS: 36415; 80053; 83880; 84436; 84443; 84481; 84484; 93926